=== PATIENT | female | born 1945 | race Caucasian/White ===

== ENCOUNTER → 2017-07-08 14:27 | Outpatient (CLI) | payer MEDICARE, OTHER, SELFPAY ==
[2017-07-08 17:40] LABS: AST(SGOT) 25 U/L (15-37); Alanine Aminotransfer ALT/SGPT 28 U/L (13-56); Albumin, Serum 3.6 g/dL (3.2-5.0); Alkaline Phosphatase 89 U/L (45-117); Anion Gap 10 (5-15); BUN 16 mg/dL (7-18); BUN/Creat Ratio 14.2 RATIO (10-20); Calcium,Total 8.9 mg/dL (8.5-10.1); Chloride 106 mmol/L (98-107); Creatinine, Serum 1.13 mg/dL (0.55-1.02); EST Glomerular Filtration Rate 50 mL/min (>60); Est Glom Filt Rate - Afr Amer 61 mL/min (>60); Globulin 3.6 g/dL (2.2-4.2); Glucose 99 mg/dL (74-106); Potassium 5.3 mmol/L (3.5-5.1); Protein, Total 7.2 g/dL (6.4-8.2); Sodium Level 142 mmol/L (136-145); Thyroid Stim Hormone (TSH) 1.38 uIU/mL (0.358-3.74)
[2017-07-08 17:59] LABS: Absolute Lymphocyte Count 1.94 X10^3/ul (0.83-4.51); Absolute Neutrophil Count 6.6 X10^3/uL (2.0-7.7); Basophil# 0.04 X10^3/uL; Basophil% 0.4 % (0-1); Eosinophils% 3.1 % (0-5); Hemoglobin 15.2 g/dl (12.0-15.0); Lymphocyte # 1.94 X10^3/ul (4.0); Lymphocyte % 19.9 % (19-41); Mean Corp Hgb Conc 32.3 g/gl (32-36); Mean Corpuscular Hgb 27.3 pg (27.0-32.0); Mean Corpuscular Volume 84.5 fL (81-99); Mean Platelet Vol. 10.5 fl (6.2-12.0); Monocyte# 0.87 X10^3/uL; Monocyte% 8.9 % (0-10); Neutrophil # 6.61 X10^3/uL (2.7-7.7); Neutrophil % 67.6 % (47-70); Platelet Count 745 K/mm3 (150-450); RBC Distribution Width CV 16.2 % (11.6-14.6); RBC Distribution Width SD 49.6 fl (35.1-43.9); Red Blood Count 5.56 M/mm3 (4.2-5.4); White Blood Count 9.8 K/mm3 (4.4-11.0)
[2017-07-08 18:16] LABS: POSITIVE COUNT NO; POSITIVE DIFFERENTIAL NO; POSITIVE MORPHOLOGY NO
[2017-07-09 10:09] LABS: Vitamin D,25 Hydroxy 28.7 ng/mL (29.95-100.01)
== END ==
PROVIDERS: Family Provider Family Medicine Geriatric Medicine; PCP Family Medicine Geriatric Medicine; Visit Provider Family Medicine Geriatric Medicine
DX: E11.9 Type 2 diabetes mellitus without complications (principal); I10 Essential (primary) hypertension; E55.9 Vitamin D deficiency, unspecified
CPT/HCPCS: 36415; 80053; 82306; 84443; 85025

== ENCOUNTER → 2017-07-12 13:50 | Outpatient (CLI) | payer MEDICARE, OTHER, SELFPAY ==
[2017-07-12 16:23] LABS: Anion Gap 9 (5-15); BUN 13 mg/dL (7-18); Calcium,Total 8.7 mg/dL (8.5-10.1); Chloride 105 mmol/L (98-107); Creatinine, Serum 1.18 mg/dL (0.55-1.02); EST Glomerular Filtration Rate 48 mL/min (>60); Est Glom Filt Rate - Afr Amer 58 mL/min (>60); Glucose 122 mg/dL (74-106); Potassium 3.7 mmol/L (3.5-5.1); Sodium Level 140 mmol/L (136-145)
== END ==
PROVIDERS: Family Provider Family Medicine Geriatric Medicine; PCP Family Medicine Geriatric Medicine; Visit Provider Family Medicine Geriatric Medicine
DX: E87.6 Hypokalemia (principal)
CPT/HCPCS: 36415; 80048

== ENCOUNTER → 2018-01-10 13:30 | Outpatient (CLI) | payer MEDICARE, OTHER, SELFPAY ==
[2018-01-10 16:41] LABS: Vitamin D,25 Hydroxy 18.7 ng/mL (29.95-100.01)
[2018-01-10 16:49] LABS: ALB/GLOB Ratio 0.8 RATIO (0.9-2.4); AST(SGOT) 28 U/L (15-37); Alanine Aminotransfer ALT/SGPT 27 U/L (13-56); Albumin, Serum 3.5 g/dL (3.2-5.0); Alkaline Phosphatase 93 U/L (45-117); Anion Gap 12 (5-15); BUN 12 mg/dL (7-18); BUN/Creat Ratio 10.4 RATIO (10-20); Calcium,Total 8.7 mg/dL (8.5-10.1); Chloride 101 mmol/L (98-107); Creatinine, Serum 1.15 mg/dL (0.55-1.02); EST Glomerular Filtration Rate 49 mL/min (>60); Est Glom Filt Rate - Afr Amer 59 mL/min (>60); Globulin 4.5 g/dL (2.2-4.2); Glucose 100 mg/dL (74-106); Potassium 3.5 mmol/L (3.5-5.1); Sodium Level 139 mmol/L (136-145); Thyroid Stim Hormone (TSH) 1.77 uIU/mL (0.358-3.74)
[2018-01-10 17:11] LABS: Absolute Lymphocyte Count 1.87 X10^3/ul (0.83-4.51); Basophil# 0.06 X10^3/uL; Basophil% 0.6 % (0-1); Eosinophil# 0.28 X10^3/uL; Eosinophils% 2.7 % (0-5); Hematocrit 45.7 % (37-47); Hemoglobin 14.7 g/dl (12.0-15.0); Lymphocyte # 1.87 X10^3/ul (4.0); Lymphocyte % 18.3 % (19-41); Mean Corp Hgb Conc 32.2 g/gl (32-36); Mean Corpuscular Volume 83.9 fL (81-99); Mean Platelet Vol. 10.6 fl (6.2-12.0); Monocyte# 1.01 X10^3/uL; Monocyte% 9.9 % (0-10); Neutrophil # 6.99 X10^3/uL (2.7-7.7); Neutrophil % 68.3 % (47-70); Platelet Count 736 K/mm3 (150-450); RBC Distribution Width CV 16.4 % (11.6-14.6); RBC Distribution Width SD 49.8 fl (35.1-43.9); Red Blood Count 5.45 M/mm3 (4.2-5.4); White Blood Count 10.2 K/mm3 (4.4-11.0)
[2018-01-10 18:22] LABS: POSITIVE DIFFERENTIAL NO
[2018-01-10 18:46] LABS: POSITIVE COUNT YES; POSITIVE MORPHOLOGY YES; Smudge Cells 1+
[2018-01-12 15:28] LABS: Pathologist Review Reviewed
== END ==
PROVIDERS: Family Provider Family Medicine Geriatric Medicine; PCP Family Medicine Geriatric Medicine; Visit Provider Family Medicine Geriatric Medicine
DX: E11.9 Type 2 diabetes mellitus without complications (principal); E55.9 Vitamin D deficiency, unspecified
CPT/HCPCS: 36415; 80053; 82306; 84443; 85025

== ENCOUNTER 2018-06-06 17:23 | Emergency (ER) | payer MEDICARE, OTHER, SELFPAY ==
[2018-06-06 17:24] VITALS: BP 235/112; PULSE 77; RESP 18; TEMP 36.9; O2SAT 97; BMI 38.9
--- NOTE | 2018-06-06 17:54 | EKG12_ITS ---
Test Reason : Blood Pressure : / mmHG Vent. Rate : 072 BPM Atrial Rate : 072 BPM P-R Int : 186 ms QRS Dur : 076 ms QT Int : 404 ms P-R-T Axes : 050 053 077 degrees QTc Int : 442 ms Normal sinus rhythm Nonspecific ST and T wave abnormality Abnormal ECG Confirmed by ITZ COON, CITLALLI ([id number]), manuscript editor DEDRICK BORDEN ([id number]) on 06/07/2018 2:25:27 PM Referred By: JOSHUA Confirmed By:CITLALLI MOBLEY MD
[2018-06-06] MEDS: hydrALAZINE 20 MG/ML Vial 5 MG IV ×2 (18:13→20:13)
[2018-06-06] MEDS: 0.9% Normal Saline 1,000 ML 150 ML IV (18:13)
[2018-06-06 18:28] LABS: Absolute Lymphocyte Count 1.54 X10^3/ul (0.83-4.51); Absolute Neutrophil Count 8.4 X10^3/uL (2.0-7.7); Basophil# 0.07 X10^3/uL; Basophil% 0.6 % (0-1); Eosinophil# 0.25 X10^3/uL; Eosinophils% 2.2 % (0-5); Hematocrit 47.1 % (37-47); Hemoglobin 15.2 g/dl (12.0-15.0); Lymphocyte # 1.54 X10^3/ul (4.0); Lymphocyte % 13.7 % (19-41); Mean Corp Hgb Conc 32.3 g/gl (32-36); Mean Corpuscular Hgb 26.7 pg (27.0-32.0); Mean Corpuscular Volume 82.8 fL (81-99); Mean Platelet Vol. 10.5 fl (6.2-12.0); Monocyte# 0.97 X10^3/uL; Monocyte% 8.6 % (0-10); Neutrophil # 8.43 X10^3/uL (2.7-7.7); Neutrophil % 74.7 % (47-70); RBC Distribution Width CV 16.6 % (11.6-14.6); RBC Distribution Width SD 49.9 fl (35.1-43.9); Red Blood Count 5.69 M/mm3 (4.2-5.4); White Blood Count 11.3 K/mm3 (4.4-11.0)
[2018-06-06 18:30] LABS: Differential Indicated SCAN CRITERIA MET; POSITIVE COUNT YES; POSITIVE DIFFERENTIAL NO; POSITIVE MORPHOLOGY NO
[2018-06-06 18:32] LABS: Platelet Count 806 K/mm3 (150-450)
[2018-06-06 18:41] LABS: Anion Gap 6 (5-15); BUN 12 mg/dL (7-18); Calcium,Total 8.9 mg/dL (8.5-10.1); Chloride 107 mmol/L (98-107); EST Glomerular Filtration Rate 58 mL/min (>60); Est Glom Filt Rate - Afr Amer 70 mL/min (>60); Estimated Creatinine Clearance 40.83 ml/min; Glucose 122 mg/dL (74-106); Potassium 3.4 mmol/L (3.5-5.1); Sodium Level 139 mmol/L (136-145)
[2018-06-06 18:46] LABS: Differential Comment SCANNED
[2018-06-06 18:56] LABS: Bacteria 0 SEEN /hpf (None Seen); Mucous, Urine 0 SEEN /hpf (<or=2+); Red Blood Cells-Urine 0 SEEN /hpf (0-5)
[2018-06-06 19:00] LABS: Color, Urine Straw (Yellow); Glucose, Dipstick Normal (Normal); Ketone-Dipstick Negative (Negative); Leukocyte Esterase-Dipstick 25 /ul (Negative); Nitrite-Dipstick Negative (Negative); Occult Blood-Urine Negative /ul (Negative); Protein-Dipstick 30 mg/dl (Negative); Specific Gravity, Urine 1.015 (1.002-1.030); Urine Bilirubin Dipstick Negative (Negative); Urine Clarity Clear (Clear); Urine Urobilinogen Normal (Normal)
[2018-06-06 19:07] LABS: Squamous Epithelial Cells - UA 0-5 SEEN /hpf (5-10)
[2018-06-06 19:08] LABS: White Blood Cells 0-5 SEEN /hpf (0-5)
[2018-06-06 19:09] LABS: Transitional Epithelial - Ur 0-5 SEEN /hpf (0-5)
[2018-06-06 20:09] VITALS: BP 189/95; PULSE 74; RESP 16; O2SAT 97
--- NOTE | 2018-06-06 20:25 | ED.VISSUMM ---
- ER Visit Summary Date of Service: 06/06/18 Chief Complaint: [High blood pressure] History of Present Illness: The patient is a 72 F [presents to the emergency department with elevated blood pressure that was noted as she was seeing the signal system testing maintainer today. Patient was there for an ingrown right toenail. Patient was noted to have a blood pressure of 235/110. Patient was sent to the ER via ambulance. Patient is asymptomatic with this. She denies any chest pain or headache or shortness of breath. Patient states that last time she visited her primary care physician's office last December her blood pressure was in the 130 systolic over 80s diastolic. Patient's not sure if she took her blood pressure medicine this morning. Patient states that before she got started on blood pressure medicine it was not unusual for her systolic to be over 200.] Physical Examination: [HEENT-PERRLA, EOMI. Cranial nerves II through XII grossly intact. TMs clear. Mucous membranes moist. No adenopathy. Cardiovascular-regular rate and rhythm without murmur or ectopy Lungs-clear to auscultation, chest wall stable without crepitus or subcu emphysema Abdomen-normoactive bowel sounds, soft, nontender, no rebound or rigidity, no peritoneal signs. Extremities-intact ?4, normal range of motion, normal pulses, atraumatic] Test Results: [Patient had an EKG that showed a sinus rhythm with a ventricular rate of 72 bpm with no acute ST segment changes noted. CBC with differential showed a white count of 11.3, hemoglobin 15, hematocrit 47, platelets 806. Chemistries unremarkable. Urinalysis unremarkable. Troponin is less than 0.015.] Emergency Department Course and Treatment: [Case was discussed with Dr. Emery and I made them aware of the patient's elevated platelet count which she is had chronically for some time. I felt this would need further investigation. At this point no changes in medications will be made to Dr. Emery will see the patient in the office tomorrow to discuss further treatment and follow-up.] Treatment Plan: [Follow-up with her primary care physician tomorrow] Disposition: [Discharged home in stable condition] Impression: [Hypertension Thrombocytosis Ingrown toenail right foot] This note was generated with [employer]ination software. It may contain incorrect words, spelling, and punctuation that were not noted in review of the chart prior to signing ED Disposition - Plan for ED Patient: Referrals: Dago Emery Chi, MD [Primary Care Provider] -
--- NOTE | 2018-06-06 20:29 | ED.DCSUM_ITS ---
- ER Visit Summary Date of Service: 06/06/18 Chief Complaint: [High blood pressure] History of Present Illness: The patient is a 72 F [presents to the emergency department with elevated blood pressure that was noted as she was seeing the claims director today. Patient was there for an ingrown right toenail. Patient was noted to have a blood pressure of 235/110. Patient was sent to the ER via ambulance. Patient is asymptomatic with this. She denies any chest pain or headache or shortness of breath. Patient states that last time she visited her primary care physician's office last December her blood pressure was in the 130 systolic over 80s diastolic. Patient's not sure if she took her blood pressure medicine this morning. Patient states that before she got started on blood pressure medicine it was not unusual for her systolic to be over 200.] Physical Examination: [HEENT-PERRLA, EOMI. Cranial nerves II through XII grossly intact. TMs clear. Mucous membranes moist. No adenopathy. Cardiovascular-regular rate and rhythm without murmur or ectopy Lungs-clear to auscultation, chest wall stable without crepitus or subcu emphysema Abdomen-normoactive bowel sounds, soft, nontender, no rebound or rigidity, no peritoneal signs. Extremities-intact ?4, normal range of motion, normal pulses, atraumatic] Test Results: [Patient had an EKG that showed a sinus rhythm with a ventricular rate of 72 bpm with no acute ST segment changes noted. CBC with differential showed a white count of 11.3, hemoglobin 15, hematocrit 47, platelets 806. Chemistries unremarkable. Urinalysis unremarkable. Troponin is less than 0.015.] Emergency Department Course and Treatment: [Case was discussed with Dr. Emery and I made them aware of the patient's elevated platelet count which she is had chronically for some time. I felt this would need further investigation. At this point no changes in medications will be made to Dr. Emery will see the patient in the office tomorrow to discuss further treatment and follow-up.] Treatment Plan: [Follow-up with her primary care physician tomorrow] Disposition: [Discharged home in stable condition] Impression: [Hypertension Thrombocytosis Ingrown toenail right foot] This note was generated with [employer] software. It may contain incorrect words, spelling, and punctuation that were not noted in review of the chart prior to signing ED Disposition - Plan for ED Patient: Referrals: Dago Emery Chi, MD [Primary Care Provider] -
--- NOTE | 2018-06-06 20:29 | ED.DEP ---
ED Disposition - Plan for ED Patient: Instructions: ED HTN Established Referrals: Dago Emery Chi, MD [Primary Care Provider] - 1 Day Additional Instructions: you will need to have further evaluation regarding your elevated platelet count.
[2018-06-06 20:54] VITALS: BP 185/85; PULSE 75; RESP 14; O2SAT 98
[2018-06-07 14:11] LABS: Pathologist Review Reviewed
== END 2018-06-06 20:57 | disposition home or self-care (01) ==
LOC: ED 18:32
PROVIDERS: Emergency Provider Emergency Medicine; Family Provider Family Medicine Geriatric Medicine; PCP Family Medicine Geriatric Medicine
DX: I10 Essential (primary) hypertension (principal); L60.0 Ingrowing nail; D47.3 Essential (hemorrhagic) thrombocythemia; E78.00 Pure hypercholesterolemia, unspecified; E03.9 Hypothyroidism, unspecified
CPT/HCPCS: 80048; 81001; 84484; 85025; 93005; 96361; 96374; 96376; 99285; J7030; A4216

== ENCOUNTER → 2018-06-15 13:09 | Outpatient (CLI) | payer MEDICARE, OTHER, SELFPAY ==
[2018-06-06 17:24] VITALS: BMI 38.9
[2018-06-15 13:45] LABS: Erythrocyte Sedimentation Rate 21 mm/hr (0-30)
[2018-06-15 14:02] LABS: CRP < 2.90 mg/L (0.0-3.0)
== END ==
PROVIDERS: Family Provider Family Medicine Geriatric Medicine; PCP Family Medicine Geriatric Medicine; Referring Provider Podiatrist Foot & Ankle Surgery; Visit Provider Podiatrist Foot & Ankle Surgery
DX: L03.031 Cellulitis of right toe (principal)
CPT/HCPCS: 36415; 85652; 86140

== ENCOUNTER → 2018-06-28 14:19 | Outpatient (CLI) | payer MEDICARE, OTHER, SELFPAY ==
[2018-06-27 14:12] VITALS: BMI 36.0
[2018-06-28 16:14] LABS: Absolute Lymphocyte Count 1.59 X10^3/ul (0.83-4.51); Absolute Neutrophil Count 9.3 X10^3/uL (2.0-7.7); Basophil% 0.8 % (0-1); Eosinophils% 1.6 % (0-5); Hematocrit 44.3 % (37-47); Hemoglobin 14.9 g/dl (12.0-15.0); Lymphocyte # 1.59 X10^3/ul (4.0); Lymphocyte % 12.8 % (19-41); Mean Corp Hgb Conc 33.6 g/gl (32-36); Mean Corpuscular Volume 80.4 fL (81-99); Mean Platelet Vol. 10.7 fl (6.2-12.0); Monocyte% 9.7 % (0-10); Neutrophil # 9.25 X10^3/uL (2.7-7.7); Neutrophil % 74.8 % (47-70); RBC Distribution Width CV 17.7 % (11.6-14.6); RBC Distribution Width SD 51.4 fl (35.1-43.9); Red Blood Count 5.51 M/mm3 (4.2-5.4); White Blood Count 12.4 K/mm3 (4.4-11.0)
[2018-06-28 16:28] LABS: Vitamin D,25 Hydroxy 42.6 ng/mL (29.95-100.01)
[2018-06-28 16:36] LABS: Differential Indicated SCAN CRITERIA MET; POSITIVE COUNT YES; POSITIVE DIFFERENTIAL NO; POSITIVE MORPHOLOGY NO
[2018-06-28 16:44] LABS: ALB/GLOB Ratio 0.8 RATIO (0.9-2.4); AST(SGOT) 26 U/L (15-37); Alanine Aminotransfer ALT/SGPT 28 U/L (13-56); Albumin, Serum 3.4 g/dL (3.2-5.0); Alkaline Phosphatase 90 U/L (45-117); Anion Gap 9 (5-15); BUN 17 mg/dL (7-18); Calcium,Total 8.9 mg/dL (8.5-10.1); Chloride 101 mmol/L (98-107); Creatinine, Serum 1.21 mg/dL (0.55-1.02); EST Glomerular Filtration Rate 46 mL/min (>60); Est Glom Filt Rate - Afr Amer 56 mL/min (>60); Globulin 4.1 g/dL (2.2-4.2); Glucose 94 mg/dL (74-106); Potassium 4.1 mmol/L (3.5-5.1); Protein, Total 7.5 g/dL (6.4-8.2); Sodium Level 135 mmol/L (136-145)
[2018-06-28 17:16] LABS: Anisocytosis RARE; Platelet Count 953 K/mm3 (150-450); Platelet Estimate MKD INC (ADEQ); Platelet Morphology LARGE
[2018-06-28 17:17] LABS: Ovalocyte RARE
[2018-06-29 12:16] LABS: Pathologist Review Reviewed
== END ==
PROVIDERS: Family Provider Family Medicine Geriatric Medicine; PCP Family Medicine Geriatric Medicine; Visit Provider Family Medicine Geriatric Medicine
DX: E55.9 Vitamin D deficiency, unspecified (principal); I10 Essential (primary) hypertension
CPT/HCPCS: 36415; 80053; 82306; 84443; 85025

== ENCOUNTER 2018-12-06 08:34 | Day surgery (SDC) | payer MEDICARE, OTHER, SELFPAY ==
[2018-10-27 15:01] VITALS: BMI 35.3
[2018-12-06] VITALS (9 sets, daily range): BP systolic 130–160; BP diastolic 75–106; PULSE 53–74; RESP 16; TEMP 36.1–36.7; O2SAT 95–100; BMI 35.3
--- NOTE | 2018-12-06 | LES_PTH ---
PATIENT: BERNICE JUAN LOC: [facility] [place] U#:[id number] AGE/SX: 73/F ROOM: RE12/06/[address]: Dr. Maxx Guzman MD : [id number] BED: DIS: 12/06/2018 SPEC #: [id number] RECD: 12/06/18 10:20 STATUS: FAITH REFlaquito #: [id number] NANCY: 12/06/18 00:[address]: Maxx Guzman DEPT: SURGICAL PATHOLOGY RECD BY: Irene Kaye ENTERED: 12/06/18 10:36 SP TYPE: Lesion OTHR DR: Dr. Dago Emery MD Tissues: A - Skin of nose, NOS B - Skin of nose, NOS C - Skin of nose, NOS Procedures: Gen Path Consultation (on slides) Frozen Section (charge) Frozen Section Add'l ([facility]) Surgery Specimen Level IV HEADER OPERATION: Excision mass, nasal dorsum x3, frozen section PRE-OP DIAGNOSIS: Basal cell carcinoma nasal mass TISSUE SUBMITTED: A - Bottom of nose lesion left side, stitch calhoun upper margin, B - Mid nose lesion, suture calhoun superior margin, C - Upper nose lesion, suture calhoun superior margin FROZEN SECTION DIAGNOSIS A. Bottom of nose, left side, biopsy: Basal cell carcinoma, excised in the planes of sections examined. : 12/06/18 Case has been reviewed in consultation with Dr. Lindo who concurs with the above diagnosis. IDC:AM B. Mid nose lesion, biopsy: Benign adnexal tumor, excised in planes examined. AM: 12/06/18 Case has been reviewed in consultation with Dr. Jaramillo who concurs with the above diagnosis. IDC:MICKIE C. Upper nose lesion, biopsy: Basal cell carcinoma, completely excised. : 12/06/18 MICROSCOPIC DIAGNOSIS A. Bottom of nose lesion, left side, excisional biopsy: Basal cell carcinoma, completely excised in the planes of sections examined (0.5 cm in greatest dimension). Solar elastosis. B. Mid nose lesion, biopsy: Basal cell carcinoma with infundibulocystic features. See comment. C. Upper nose lesion, biopsy: Basal cell carcinoma, completely excised (0.8 cm in greatest dimension). Solar elastosis. :reinaldo 12/15/18 COMMENT B. The tumor measures 0.5 cm in greatest dimension and is completely excised in the planes of sections examined. This specimen is sent to [facility] and reviewed by Dr. Tatum and above diagnosis is rendered. The complete report is viewable in patient's EMR. Case has been reviewed in consultation with Dr. Lindo who concurs with the above diagnosis. IDC:AM MICROSCOPIC DESCRIPTION Slides are reviewed. GROSS DESCRIPTION A - Received fresh for frozen section diagnosis labeled with the patient's name is a specimen designated bottom of the nose, left side. The specimen consists of a piece of reddy-white skin ellipse measuring 1 x 0.5 x 0.3 cm. The specimen is oriented by a stitch marking upper margin. The specimen is inked as follows: upper margin - black, lower margin - blue. The specimen is bisected and submitted entirely for frozen section diagnosis in one cassette. / :rg 12/06/18 B - Received fresh for frozen section diagnosis labeled with the patient's name is a specimen designated mid nose lesion. The specimen consists of a piece of reddy-white skin ellipse measuring 1.5 x 0.5 x 0.1 cm. The specimen is oriented by a suture marking superior margin. The specimen is inked as follows: superior margin - black, inferior margin - blue. The specimen is serially sectioned and submitted entirely for frozen section diagnosis in one cassette. / SJ:rg 12/06/18 C - Received fresh for frozen section diagnosis labeled with the patient's name is a specimen designated upper nose lesion. The specimen consists of a piece of reddy-white skin ellipse measuring 2.5 x 1.5 x 0.2 cm. The specimen is oriented by a suture marking superior margin. The specimen is inked as follows: superior margin - black, inferior margin - blue. The specimen is serially sectioned and submitted entirely for frozen section diagnosis in two cassettes. Cassette 2 contains the tips. / MICKIE:reinaldo 12/06/18 TC:0 CPT: 69370 x3, 06131 x3, 06868
[2018-12-06] MEDS: Lactated Ringers 1,000 ML 100 ML IV ×2 (09:26→11:30)
[2018-12-06] MEDS: Bacitracin 500 UNITS/GM PACKET (10:25)
--- NOTE | 2018-12-06 11:11 | PCM.OPRPT ---
Report of Operation Date of Procedure: 12/06/18 Pre-Operative Diagnosis: Basal cell carcinoma left dorsum of the nose x2. Hypertrophic keratosis left dorsum of the nose x1 Post-Operative Diagnosis: 1. Large basal cell carcinoma dorsum of the nose. #2 hypertrophic keratosis left side of nose. #3 basal cell carcinoma left ala of the nose Surgery/Procedure Performed:: Procedure excision of lesions dorsum of the nose and left ala of the nose x3 with frozen section diagnosis Description of Surgical Findings:: Procedure the patient was placed supine on the operating room table. She was sedated intra-venously. The face and dorsum of the nose were prepped with Betadine solution and sterile drapes were applied. The left nose was examined and a large raised ulcerated lesion was noted 1 cm inferior to the glabella on the dorsum of the nose. This lesion measured 2 x 1.5 cm in dimension. The second lesion was situated in the midportion of the lateral side of the nose and measured 0.5 x 0.5 cm in dimension. The third lesion measured 1 x 1 cm and was situated on the left ala of the nose. 1% Xylocaine plain mixed with epinephrine was infiltrated around all 3 lesions. After local anesthesia had been obtained the largest lesion was excised by making an elliptical incision on the dorsum of the nose inferior to the glabella. The lesion was completely excised and frozen section diagnosis was a basal cell carcinoma completely excised. Superior and inferior margins were undermined. An inferior flap was elevated and the flap was rotated into the wound and the wound was closed with interrupted sutures of 4-0 Vicryl and the skin edges approximated with 5-0 nylon. The second lesion was then excised in a horizontal direction and the skin edges were undermined. The lesion appeared to be a hyper trophic keratosis. The skin edges were approximated with interrupted sutures of 6-0 nylon. The lesion on the left ala was then excised and the skin edges undermined. The lesion was a basal cell carcinoma completely excised. The subcutaneous tissues were approximated with 4 Vicryl and the skin edges approximated with 6-0 nylon. The dimensions of the largest lesion were 2 x 1.5 cm the dimension of the lesion in the mid nose was approximately 0.5 x 0.5 cm and the dimension of the excised specimen of the ala of the nose was 1 x 1 cm. Antibiotic ointment was applied to the incision site and op site was applied. The procedure was considered terminated and the patient returned to the recovery room in satisfactory condition. Type of Anesthesia:: MAC/Supplemental
== END 2018-12-06 12:56 | disposition home or self-care (01) ==
LOC: SDC 08:35 → AC 08:36
PROVIDERS: Family Provider Family Medicine Geriatric Medicine; PCP Family Medicine Geriatric Medicine; Referring Provider Otolaryngology Otolaryngology/Facial Plastic Surgery; Visit Provider Otolaryngology Otolaryngology/Facial Plastic Surgery
PROC: (CPT 11643; principal; 2018-12-06 09:45)
DX: C44.311 Basal cell carcinoma of skin of nose (principal); L57.8 Other skin changes due to chronic exposure to nonionizing radiation; W89.9XXA Exposure to unspecified man-made visible and ultraviolet light, initial encounter; Y92.9 Unspecified place or not applicable; Y99.9 Unspecified external cause status; D69.6 Thrombocytopenia, unspecified; I10 Essential (primary) hypertension
CPT/HCPCS: 11643; 88305; 88325; 88331; 88332; J7120; J2405

== ENCOUNTER → 2019-01-12 15:12 | Outpatient (CLI) | payer MEDICARE, OTHER, SELFPAY ==
[2018-12-06 09:03] VITALS: BMI 35.3
[2019-01-12 17:24] LABS: Absolute Lymphocyte Count 1.84 X10^3/uL (0.83-4.51); Absolute Neutrophil Count 3.2 X10^3/uL (2.0-7.7); Basophil# 0.03 X10^3/uL; Basophil% 0.5 % (0-1); Eosinophil# 0.09 X10^3/uL; Eosinophils% 1.6 % (0-5); Lymphocyte # 1.84 X10^3/ul (4.0); Lymphocyte % 32.6 % (19-41); Mean Corp Hgb Conc 32.5 g/dL (32-36); Mean Corpuscular Hgb 34.9 pg (27.0-32.0); Mean Corpuscular Volume 107.5 fL (81-99); Mean Platelet Vol. 10.3 fl (6.2-12.0); Monocyte% 8.8 % (0-10); NRBC Flagged by Analyzer 0 % (0-5); Neutrophil # 3.18 X10^3/uL (2.7-7.7); Neutrophil % 56.3 % (47-70); Platelet Count 280 K/mm3 (150-450); RBC Distribution Width SD 57.8 fl (35.1-43.9); Red Blood Count 3.72 M/mm3 (4.2-5.4); White Blood Count 5.7 K/mm3 (4.4-11.0)
[2019-01-12 17:42] LABS: Vitamin D,25 Hydroxy 35.3 ng/mL (29.95-100.01)
[2019-01-12 17:46] LABS: ALB/GLOB Ratio 0.8 RATIO (0.9-2.4); AST(SGOT) 25 U/L (15-37); Alanine Aminotransfer ALT/SGPT 24 U/L (13-56); Albumin, Serum 3.4 g/dL (3.2-5.0); Alkaline Phosphatase 91 U/L (45-117); Anion Gap 7 (5-15); BUN 14 mg/dL (7-18); BUN/Creat Ratio 13.9 RATIO (10-20); Calcium,Total 8.7 mg/dL (8.5-10.1); Chloride 104 mmol/L (98-107); Creatinine, Serum 1.01 mg/dL (0.55-1.02); EST Glomerular Filtration Rate 57 mL/min (>60); Est Glom Filt Rate - Afr Amer 69 mL/min (>60); Globulin 4.2 g/dL (2.2-4.2); Glucose 98 mg/dL (74-106); Potassium 3.9 mmol/L (3.5-5.1); Protein, Total 7.6 g/dL (6.4-8.2); Sodium Level 138 mmol/L (136-145); Thyroid Stim Hormone (TSH) 1.52 uIU/mL (0.358-3.74)
== END ==
PROVIDERS: Family Provider Family Medicine Geriatric Medicine; PCP Family Medicine Geriatric Medicine; Visit Provider Family Medicine Geriatric Medicine
DX: E11.9 Type 2 diabetes mellitus without complications (principal); E55.9 Vitamin D deficiency, unspecified; I10 Essential (primary) hypertension
CPT/HCPCS: 36415; 80053; 82306; 84443; 85025

== ENCOUNTER → 2019-09-06 13:06 | Outpatient (CLI) | payer MEDICARE, OTHER, SELFPAY ==
[2019-07-27 14:26] VITALS: BMI 36.8
[2019-09-06 16:48] LABS: Absolute Lymphocyte Count 1.44 X10^3/uL (0.83-4.51); Absolute Neutrophil Count 3.5 X10^3/uL (2.0-7.7); Basophil# 0.03 X10^3/uL; Basophil% 0.5 % (0-1); Eosinophil# 0.08 X10^3/uL; Eosinophils% 1.4 % (0-5); Hematocrit 40.4 % (37-47); Hemoglobin 13.3 g/dL (12.0-15.0); Lymphocyte # 1.44 X10^3/ul (4.0); Lymphocyte % 25.8 % (19-41); Mean Corp Hgb Conc 32.9 g/dL (32-36); Mean Corpuscular Hgb 35.3 pg (27.0-32.0); Mean Corpuscular Volume 107.2 fL (81-99); Mean Platelet Vol. 10.6 fl (6.2-12.0); Monocyte# 0.49 X10^3/uL; Monocyte% 8.8 % (0-10); NRBC Flagged by Analyzer 0 % (0-5); Neutrophil # 3.53 X10^3/uL (2.7-7.7); Neutrophil % 63.1 % (47-70); Platelet Count 331 K/mm3 (150-450); RBC Distribution Width CV 14.1 % (11.6-14.6); RBC Distribution Width SD 54.4 fl (35.1-43.9); Red Blood Count 3.77 M/mm3 (4.2-5.4); White Blood Count 5.6 K/mm3 (4.4-11.0)
[2019-09-06 17:00] LABS: Vitamin D,25 Hydroxy 52.6 ng/mL
[2019-09-06 17:13] LABS: ALB/GLOB Ratio 0.8 RATIO (0.9-2.4); AST(SGOT) 26 U/L (15-37); Alanine Aminotransfer ALT/SGPT 28 U/L (13-56); Albumin, Serum 3.4 g/dL (3.2-5.0); Alkaline Phosphatase 96 U/L (45-117); Anion Gap 6 (5-15); BUN 15 mg/dL (7-18); BUN/Creat Ratio 15.4 RATIO (10-20); Chloride 108 mmol/L (98-107); Creatinine, Serum 0.97 mg/dL (0.55-1.02); EST Glomerular Filtration Rate 59 mL/min (>60); Est Glom Filt Rate - Afr Amer 72 mL/min (>60); Globulin 4.2 g/dL (2.2-4.2); Glucose 125 mg/dL (74-106); Potassium 4.1 mmol/L (3.5-5.1); Protein, Total 7.6 g/dL (6.4-8.2); Sodium Level 141 mmol/L (136-145); Thyroid Stim Hormone (TSH) 1.76 uIU/mL (0.358-3.74)
== END ==
PROVIDERS: PCP Family Medicine Geriatric Medicine; Visit Provider Family Medicine Geriatric Medicine
DX: I10 Essential (primary) hypertension (principal); E55.9 Vitamin D deficiency, unspecified
CPT/HCPCS: 36415; 80053; 82306; 84443; 85025

== ENCOUNTER → 2020-01-16 13:15 | Outpatient (CLI) | payer MEDICARE, OTHER, SELFPAY ==
[2019-10-26 14:27] VITALS: BMI 34.7
[2020-01-16 16:23] LABS: Absolute Lymphocyte Count 1.49 X10^3/uL (0.83-4.51); Absolute Neutrophil Count 3.4 X10^3/uL (2.0-7.7); Basophil# 0.01 X10^3/uL; Basophil% 0.2 % (0-1); Eosinophil# 0.05 X10^3/uL; Eosinophils% 0.9 % (0-5); Hematocrit 39.9 % (37-47); Hemoglobin 13.1 g/dL (12.0-15.0); Lymphocyte # 1.49 X10^3/ul (4.0); Lymphocyte % 27.6 % (19-41); Mean Corp Hgb Conc 32.8 g/dL (32-36); Mean Corpuscular Hgb 35.3 pg (27.0-32.0); Mean Corpuscular Volume 107.5 fL (81-99); Mean Platelet Vol. 10.7 fl (6.2-12.0); Monocyte# 0.44 X10^3/uL; Monocyte% 8.1 % (0-10); NRBC Flagged by Analyzer 0 % (0-5); Platelet Count 331 K/mm3 (150-450); RBC Distribution Width CV 15.4 % (11.6-14.6); RBC Distribution Width SD 60.6 fl (35.1-43.9); Red Blood Count 3.71 M/mm3 (4.2-5.4); White Blood Count 5.4 K/mm3 (4.4-11.0)
[2020-01-16 16:39] LABS: Vitamin D,25 Hydroxy 27.2 ng/mL
[2020-01-16 16:42] LABS: ALB/GLOB Ratio 0.8 RATIO (0.9-2.4); AST(SGOT) 26 U/L (15-37); Alanine Aminotransfer ALT/SGPT 25 U/L (13-56); Albumin, Serum 3.3 g/dL (3.2-5.0); Alkaline Phosphatase 94 U/L (45-117); Anion Gap 7 (5-15); BUN 15 mg/dL (7-18); BUN/Creat Ratio 13.3 RATIO (10-20); Calcium,Total 8.6 mg/dL (8.5-10.1); Chloride 105 mmol/L (98-107); Creatinine, Serum 1.13 mg/dL (0.55-1.02); EST Glomerular Filtration Rate 50 mL/min (>60); Est Glom Filt Rate - Afr Amer 60 mL/min (>60); Globulin 4.3 g/dL (2.2-4.2); Glucose 121 mg/dL (74-106); Protein, Total 7.6 g/dL (6.4-8.2); Sodium Level 139 mmol/L (136-145); Thyroid Stim Hormone (TSH) 1.66 uIU/mL (0.358-3.74)
== END ==
PROVIDERS: PCP Family Medicine Geriatric Medicine; Visit Provider Family Medicine Geriatric Medicine
DX: E55.9 Vitamin D deficiency, unspecified (principal); I10 Essential (primary) hypertension
CPT/HCPCS: 36415; 80053; 82306; 84443; 85025

== ENCOUNTER → 2020-07-16 13:13 | Outpatient (CLI) | payer MEDICARE, OTHER, SELFPAY ==
[2020-04-25 14:46] VITALS: BMI 37.8
[2020-07-16 15:23] LABS: Absolute Lymphocyte Count 1.27 X10^3/uL (0.83-4.51); Absolute Neutrophil Count 3.9 X10^3/uL (2.0-7.7); Basophil# 0.02 X10^3/uL; Basophil% 0.4 % (0-1); Eosinophils% 1.8 % (0-5); Hematocrit 40.7 % (37-47); Hemoglobin 13.1 g/dL (12.0-15.0); Lymphocyte # 1.27 X10^3/ul (0.83-4.51); Lymphocyte % 22.5 % (19-41); Mean Corp Hgb Conc 32.2 g/dL (32-36); Mean Corpuscular Hgb 34.8 pg (27.0-32.0); Mean Corpuscular Volume 108.2 fL (81-99); Mean Platelet Vol. 10.7 fl (6.2-12.0); Monocyte# 0.39 X10^3/uL; Monocyte% 6.9 % (0-10); NRBC Flagged by Analyzer 0 % (0-5); Neutrophil # 3.85 X10^3/uL (2.7-7.7); Platelet Count 311 K/mm3 (150-450); RBC Distribution Width CV 14.6 % (11.6-14.6); RBC Distribution Width SD 58.1 fl (35.1-43.9); Red Blood Count 3.76 M/mm3 (4.2-5.4); White Blood Count 5.7 K/mm3 (4.4-11.0)
[2020-07-16 15:33] LABS: Vitamin D,25 Hydroxy 24.1 ng/mL
[2020-07-16 15:42] LABS: ALB/GLOB Ratio 0.8 RATIO (0.9-2.4); AST(SGOT) 20 U/L (15-37); Alanine Aminotransfer ALT/SGPT 28 U/L (13-56); Albumin, Serum 3.3 g/dL (3.2-5.0); Alkaline Phosphatase 95 U/L (45-117); Anion Gap 6 (5-15); BUN 16 mg/dL (7-18); BUN/Creat Ratio 15.4 RATIO (10-20); Calcium,Total 9.2 mg/dL (8.5-10.1); Chloride 105 mmol/L (98-107); Creatinine, Serum 1.04 mg/dL (0.55-1.02); EST Glomerular Filtration Rate 55 mL/min (>60); Est Glom Filt Rate - Afr Amer 66 mL/min (>60); Globulin 4.4 g/dL (2.2-4.2); Glucose 127 mg/dL (74-106); Potassium 3.9 mmol/L (3.5-5.1); Protein, Total 7.7 g/dL (6.4-8.2); Sodium Level 137 mmol/L (136-145); Thyroid Stim Hormone (TSH) 1.93 uIU/mL (0.358-3.74)
== END ==
PROVIDERS: PCP Family Medicine Geriatric Medicine; Visit Provider Family Medicine Geriatric Medicine
DX: E55.9 Vitamin D deficiency, unspecified (principal); I10 Essential (primary) hypertension
CPT/HCPCS: 36415; 80053; 82306; 84443; 85025

== ENCOUNTER → 2021-01-16 13:08 | Outpatient (CLI) | payer MEDICARE, OTHER, SELFPAY ==
[2021-01-16 16:43] LABS: Absolute Lymphocyte Count 1.57 X10^3/uL (0.83-4.51); Absolute Neutrophil Count 3.4 X10^3/uL (2.0-7.7); Basophil# 0.03 X10^3/uL; Basophil% 0.5 % (0-1); Eosinophil# 0.05 X10^3/uL; Eosinophils% 0.9 % (0-5); Hemoglobin 13.3 g/dL (12.0-15.0); Lymphocyte # 1.57 X10^3/ul (0.83-4.51); Lymphocyte % 28.7 % (19-41); Mean Corp Hgb Conc 33.3 g/dL (32-36); Mean Corpuscular Hgb 36.1 pg (27.0-32.0); Mean Corpuscular Volume 108.7 fL (81-99); Mean Platelet Vol. 11.1 fl (6.2-12.0); Monocyte# 0.45 X10^3/uL; Monocyte% 8.2 % (0-10); NRBC Flagged by Analyzer 0 % (0-5); Neutrophil # 3.36 X10^3/uL (2.7-7.7); Neutrophil % 61.5 % (47-70); Platelet Count 271 K/mm3 (150-450); RBC Distribution Width CV 14.8 % (11.6-14.6); RBC Distribution Width SD 59.5 fl (35.1-43.9); Red Blood Count 3.68 M/mm3 (4.2-5.4); White Blood Count 5.5 K/mm3 (4.4-11.0)
[2021-01-16 17:00] LABS: Vitamin D,25 Hydroxy 28.8 ng/mL
[2021-01-16 17:08] LABS: ALB/GLOB Ratio 0.7 RATIO (0.9-2.4); AST(SGOT) 26 U/L (15-37); Alanine Aminotransfer ALT/SGPT 27 U/L (13-56); Albumin, Serum 3.3 g/dL (3.2-5.0); Alkaline Phosphatase 90 U/L (45-117); Anion Gap 9 (5-15); BUN 18 mg/dL (7-18); BUN/Creat Ratio 15.7 RATIO (10-20); Chloride 104 mmol/L (98-107); Creatinine, Serum 1.15 mg/dL (0.55-1.02); EST Glomerular Filtration Rate 49 mL/min (>60); Est Glom Filt Rate - Afr Amer 59 mL/min (>60); Globulin 4.5 g/dL (2.2-4.2); Glucose 115 mg/dL (74-106); Potassium 4.2 mmol/L (3.5-5.1); Protein, Total 7.8 g/dL (6.4-8.2); Sodium Level 137 mmol/L (136-145); Thyroid Stim Hormone (TSH) 1.48 uIU/mL (0.358-3.74)
== END ==
PROVIDERS: PCP Family Medicine Geriatric Medicine; Visit Provider Family Medicine Geriatric Medicine
DX: E11.9 Type 2 diabetes mellitus without complications (principal); F52.8 Other sexual dysfunction not due to a substance or known physiological condition; I10 Essential (primary) hypertension; E55.9 Vitamin D deficiency, unspecified
CPT/HCPCS: 36415; 80053; 82306; 84443; 85025

== ENCOUNTER → 2021-07-22 | Outpatient (CLI) | payer MEDICARE, OTHER, SELFPAY ==
[2021-07-22 17:17] LABS: Basophil# 0.02 X10^3/uL; Basophil% 0.4 % (0-1); Eosinophil# 0.03 X10^3/uL; Eosinophils% 0.7 % (0-5); Hematocrit 38.6 % (37-47); Hemoglobin 13.1 g/dL (12.0-15.0); Lymphocyte % 22.5 % (19-41); Mean Corp Hgb Conc 33.9 g/dL (32-36); Mean Corpuscular Hgb 37.8 pg (27.0-32.0); Mean Corpuscular Volume 111.2 fL (81-99); Mean Platelet Vol. 10.8 fl (6.2-12.0); Monocyte# 0.35 X10^3/uL; Monocyte% 7.9 % (0-10); NRBC Flagged by Analyzer 0 % (0-5); Neutrophil # 3.03 X10^3/uL (2.7-7.7); Neutrophil % 68.1 % (47-70); Platelet Count 254 K/mm3 (150-450); RBC Distribution Width CV 14.8 % (11.6-14.6); RBC Distribution Width SD 60.8 fl (35.1-43.9); Red Blood Count 3.47 M/mm3 (4.2-5.4); White Blood Count 4.5 K/mm3 (4.4-11.0)
[2021-07-22 17:20] LABS: ALB/GLOB Ratio 0.8 RATIO (0.9-2.4); AST(SGOT) 29 U/L (15-37); Alanine Aminotransfer ALT/SGPT 23 U/L (13-56); Albumin, Serum 3.4 g/dL (3.2-5.0); Alkaline Phosphatase 83 U/L (45-117); Anion Gap 8 (5-15); BUN 17 mg/dL (7-18); BUN/Creat Ratio 16.8 RATIO (10-20); Calcium,Total 9.1 mg/dL (8.5-10.1); Chloride 105 mmol/L (98-107); Creatinine, Serum 1.01 mg/dL (0.55-1.02); EST Glomerular Filtration Rate 56 mL/min (>60); Est Glom Filt Rate - Afr Amer 68 mL/min (>60); Globulin 4.2 g/dL (2.2-4.2); Glucose 99 mg/dL (74-106); Potassium 3.7 mmol/L (3.5-5.1); Protein, Total 7.6 g/dL (6.4-8.2); Sodium Level 138 mmol/L (136-145); Thyroid Stim Hormone (TSH) 1.19 uIU/mL (0.358-3.74)
[2021-07-22 17:23] LABS: Vitamin D,25 Hydroxy 27.2 ng/mL
== END | disposition home or self-care (01) ==
LOC: POLAB3 12:50
PROVIDERS: PCP Family Medicine Geriatric Medicine; Visit Provider Family Medicine Geriatric Medicine
DX: I10 Essential (primary) hypertension (principal); E55.9 Vitamin D deficiency, unspecified
CPT/HCPCS: 36415; 80053; 82306; 84443; 85025

== ENCOUNTER → 2022-01-19 | Outpatient (CLI) | payer MEDICARE, OTHER, SELFPAY ==
[2022-01-19 13:58] LABS: Absolute Lymphocyte Count 1.06 X10^3/uL (0.83-4.51); Basophil# 0.02 X10^3/uL; Basophil% 0.4 % (0-1); Eosinophil# 0.06 X10^3/uL; Eosinophils% 1.1 % (0-5); Hematocrit 39.4 % (37-47); Hemoglobin 13.5 g/dL (12.0-15.0); Lymphocyte # 1.06 X10^3/ul (0.83-4.51); Lymphocyte % 18.9 % (19-41); Mean Corp Hgb Conc 34.3 g/dL (32-36); Mean Corpuscular Hgb 37.7 pg (27.0-32.0); Mean Corpuscular Volume 110.1 fL (81-99); Mean Platelet Vol. 10.4 fl (6.2-12.0); Monocyte% 8.9 % (0-10); NRBC Flagged by Analyzer 0 % (0-5); Neutrophil # 3.95 X10^3/uL (2.7-7.7); Neutrophil % 70.3 % (47-70); Platelet Count 258 K/mm3 (150-450); RBC Distribution Width CV 15.3 % (11.6-14.6); Red Blood Count 3.58 M/mm3 (4.2-5.4); White Blood Count 5.6 K/mm3 (4.4-11.0)
[2022-01-19 14:46] LABS: Vitamin D,25 Hydroxy 28.7 ng/mL
[2022-01-19 14:53] LABS: ALB/GLOB Ratio 0.8 RATIO (0.9-2.4); AST(SGOT) 24 U/L (15-37); Alanine Aminotransfer ALT/SGPT 21 U/L (13-56); Albumin, Serum 3.3 g/dL (3.2-5.0); Alkaline Phosphatase 87 U/L (45-117); Anion Gap 7 (5-15); BUN 17 mg/dL (7-18); Calcium,Total 9.2 mg/dL (8.5-10.1); Chloride 106 mmol/L (98-107); Creatinine, Serum 1.06 mg/dL (0.55-1.02); EST Glomerular Filtration Rate 53 mL/min (>60); Est Glom Filt Rate - Afr Amer 64 mL/min (>60); Glucose 122 mg/dL (74-106); Potassium 3.8 mmol/L (3.5-5.1); Protein, Total 7.3 g/dL (6.4-8.2); Sodium Level 140 mmol/L (136-145); Thyroid Stim Hormone (TSH) 1.77 uIU/mL (0.358-3.74)
== END | disposition home or self-care (01) ==
LOC: POLAB3 13:22
PROVIDERS: PCP Family Medicine Geriatric Medicine; Visit Provider Family Medicine Geriatric Medicine
DX: E11.9 Type 2 diabetes mellitus without complications (principal); E55.9 Vitamin D deficiency, unspecified; I10 Essential (primary) hypertension
CPT/HCPCS: 36415; 80053; 82306; 84443; 85025

== ENCOUNTER 2022-04-12 08:32 | Emergency (ER) | payer MEDICARE, OTHER, SELFPAY ==
[2022-04-12 08:33] VITALS: PULSE 63; RESP 18; TEMP 36.9; O2SAT 97; BMI 36.3
[2022-04-12 08:38] VITALS: BP 178/94; PULSE 60; RESP 16; O2SAT 96
--- NOTE | 2022-04-12 08:44 | EDS_ITS ---
HPI History of Present Illness Chief Complaint: Lower Extremity Injury Narrative Narrative: 76-year-old female with right knee pain. She states been hurting her for about 4 days. She states on the medial aspect of the right knee. Patient denies any trauma. She has a history of left knee problems and has been seen by orthopedics. Apparently they cannot do a knee replacement because she has a titanium abiola in the left leg. She went to physical therapy for this and finished in January. She states that her right knee started hurting about 4 days ago. She is able to ambulate with her walker and states when she uses her walker and actually improves the pain. The pain is worse when she lies on either side in bed. She states he has a history of osteoarthritis. [facility] Medical History Anxiety Fracture of left hip requiring operative repair Hyperlipidemia Hypertension Hypothyroidism Kidney stones Melanoma in situ Osteopenia Vitamin D deficiency Home Medications levothyroxine 50 mcg tablet (Levoxyl) 50 mcg PO DAILY 08/04/13 [History Last Taken 04/19/14 05:30] Atenolol 100 mg PO DAILY 04/17/14 [History Last Taken 12/06/18 07:00 100 MG] losartan 100 mg tablet 100 mg PO DAILY 06/06/18 [History Last Taken 12/06/18 07:00 100 MG] amlodipine 5 mg tablet 5 mg PO DAILY 07/21/18 [History Last Taken 12/06/18 07:00 5 MG] cholecalciferol (vitamin D3) 25 mcg (1,000 unit) tablet 1,000 unit PO DAILY 10/26/19 [History Last Taken Unknown] aspirin 81 mg tablet,delayed release 81 mg PO .QOD 11/04/21 [History Last Taken Unknown] hydroxyurea 500 mg capsule 1,000 mg PO DAILY #120 caps 02/04/22 [Rx Last Taken Unknown] Allergy/AdvReac Type Severity Reaction Status Date / Time promethazine HCl Allergy Severe Other Verified 04/12/22 08:37 [From Phenergan] Penicillins AdvReac Severe Swelling Verified 04/12/22 08:37 red dye AdvReac Severe Unknown Verified 04/12/22 08:37 Tetanus Vaccines and Toxoid AdvReac Intermediate NEEDS Verified 04/12/22 08:37 FOLLOW-UP Family History Father Rheumatoid arthritis Surgical History History of breast lump removal History of hip surgery Social 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 seatbelt use: always do you feel safe at home: Yes ROS ROS ED Constitutional Constitutional ED: Denies chills, fever(s) or sweats Eyes Eyes: Denies blurry vision or change in vision ENT ENT ED: Denies ear pain or sore throat Cardiovascular Cardiovascular: Denies chest pain, palpitations or racing heartbeat Respiratory/Chest Respiratory/Chest: Denies cough, dyspnea or sputum Gastrointestinal Gastrointestinal: Denies abdominal pain, constipation, diarrhea, nausea or vomiting Genitourinary Genitourinary ED: Denies dysuria, hematuria or urinary frequency Musculoskeletal Musculoskeletal: Reports other Details: Right knee pain ; Denies myalgias or neck pain Integumentary Denies abscess, Abrasions or rash Neurologic Neurologic: Denies headache(s), paresthesias or weakness Psychiatric Psychiatric: Denies anxiety, depression, suicidal ideation or suicidal thoughts Endocrine Endocrinology: Denies polydipsia or polyuria EXAM Physical Exam Const Vital Signs: 04/12/22 08:33 04/12/22 08:38 Temperature 98.5 F Temperature Source Oral Pulse Rate 63 60 Respiratory Rate 18 16 Blood Pressure 178/94 H Blood Pressure Mean 122 Pulse Ox 97 96 Oxygen Delivery Method Room Air Room Air Positive well nourished General Appearance ED: NAD HEENT Reports moist mucous membranes normocephalic and atraumatic Chest Wall palpation of chest normal Resp normal respiratory effort and no retractions Cardio regular rate and regular rhythm Extremity Extremity Narrative: Right medial knee. No patellar tenderness. No obvious joint effusion. No erythema or warmth. Right knee extensor mechanism is intact. No ligamentous laxity. Minimal pain with range of motion. MDM MDM MDM Narrative Medical decision making narrative: Patient presenting with right knee pain. This is nontraumatic. Differential currently includes but not limited to osteoarthritis, knee strain, meniscal tear, joint effusion. There is no evidence currently that this is septic knee and the patient is ambulatory on it. She has full range of motion although there is some tenderness. I did obtain an x-ray of the right knee which on my interpretation shows degenerative changes. Radiologist interprets this and agree. No evidence of acute fracture. No significant effusion. Patient will be placed in Scott wrap. Is recommended that she versus ibuprofen at home. She is to follow-up with orthopedic physician. Discharged home in stable condition. Impression: 1. Right knee strain 2. History of osteoarthritis Lab Data Attestation: I reviewed the patient's lab results. Radiography Diagnostic Testing: Clinical Impression(s) from Imaging Studies Knee X-Ray 04/12/22 09:14 IMPRESSION: Degenerative arthrosis. Electronically Signed: Sb Vernon MD at 9:33 EST , Discharge Plan Triage Chief Complaint: Lower Extremity Injury ED Provider: Garret Yanez Dx/Rx/DC Orders Instructions: ED Meniscal Injury Knee Poss Prescriptions: No Action levothyroxine [Levoxyl] 50 MCG tablet 50 mcg PO DAILY Label Comments: THYROID Atenolol 100 MG tablet 100 mg PO DAILY Label Comments: LOWERS BLOOD PRESURE losartan 100 MG tablet 100 mg PO DAILY Label Comments: take 1 tablet by mouth once daily amlodipine 5 MG tablet 5 mg PO DAILY cholecalciferol (vitamin D3) 1,000 UNIT tablet 1,000 unit PO DAILY aspirin 81 mg tablet,delayed release (DR/EC) 81 mg PO .QOD hydroxyurea 500 mg Capsule 1,000 mg PO DAILY Qty: 120 3RF Rx Instructions: Except Sundays and Wednesdays, Adjust as instructed Primary Care Provider: Dago Emery Chi Referrals: Dago Emery Chi, MD [Primary Care Provider] - Disposition Disposition: Home, Self Care
--- NOTE | 2022-04-12 09:14 | RAD_ITS ---
STUDY: X-RAY - RIGHT KNEE REASON FOR EXAM: Female, 76 years old. PAIN TECHNIQUE: 4 view(s) of the knee. COMPARISON: None. FINDINGS: There is demineralization of the visualized distal femur. There is demineralization of the tibia and fibula. Normal proximal tibiofibular articulation. There is no demonstrated fracture. There is mild degenerative arthrosis of the medial femorotibial compartment. There is severe degenerative arthrosis of the lateral femorotibial compartment with severe joint space narrowing. There is mild degenerative arthrosis of the patellofemoral articulation. There is a soft tissue prominence in the suprapatellar region suggesting a small volume joint effusion. The soft tissue structures are unremarkable. RAD/Knee 4 or More Views IMPRESSION: Degenerative arthrosis. Electronically Signed: Sb Vernon MD at 9:33 EST ,
== END 2022-04-12 10:38 | disposition home or self-care (01) ==
PROVIDERS: Emergency Provider Student in an Organized Health Care Education/Training Program; PCP Family Medicine Geriatric Medicine; Visit Provider Student in an Organized Health Care Education/Training Program
DX: S86.911A Strain of unspecified muscle(s) and tendon(s) at lower leg level, right leg, initial encounter (principal); M19.90 Unspecified osteoarthritis, unspecified site; E78.5 Hyperlipidemia, unspecified; I10 Essential (primary) hypertension; M25.561 Pain in right knee; E03.9 Hypothyroidism, unspecified; Z79.899 Other long term (current) drug therapy; Z79.890 Hormone replacement therapy; Z79.82 Long term (current) use of aspirin; X58.XXXA Exposure to other specified factors, initial encounter; Y93.9 Activity, unspecified; Y92.9 Unspecified place or not applicable
CPT/HCPCS: 73564; 99284

== ENCOUNTER → 2022-07-20 | Outpatient (CLI) | payer MEDICARE, OTHER, SELFPAY ==
[2022-07-20 16:52] LABS: Absolute Lymphocyte Count 1.03 X10^3/uL (0.83-4.51); Basophil# 0.02 X10^3/uL; Basophil% 0.3 % (0-1); Eosinophil# 0.14 X10^3/uL; Eosinophils% 2.4 % (0-5); Hematocrit 37.4 % (37-47); Hemoglobin 12.2 g/dL (12.0-15.0); Lymphocyte # 1.03 X10^3/ul (0.83-4.51); Lymphocyte % 17.7 % (19-41); Mean Corp Hgb Conc 32.6 g/dL (32-36); Mean Corpuscular Hgb 37.5 pg (27.0-32.0); Mean Corpuscular Volume 115.1 fL (81-99); Monocyte# 0.59 X10^3/uL; Monocyte% 10.2 % (0-10); NRBC Flagged by Analyzer 0 % (0-5); Neutrophil % 68.9 % (47-70); Platelet Count 262 K/mm3 (150-450); RBC Distribution Width SD 63.6 fl (35.1-43.9); Red Blood Count 3.25 M/mm3 (4.2-5.4); White Blood Count 5.8 K/mm3 (4.4-11.0)
[2022-07-20 17:09] LABS: Vitamin D,25 Hydroxy 32.7 ng/mL
[2022-07-20 17:17] LABS: ALB/GLOB Ratio 0.8 RATIO (0.9-2.4); AST(SGOT) 28 U/L (15-37); Alanine Aminotransfer ALT/SGPT 26 U/L (13-56); Albumin, Serum 3.3 g/dL (3.2-5.0); Alkaline Phosphatase 89 U/L (45-117); Anion Gap 8 (5-15); BUN 21 mg/dL (7-18); BUN/Creat Ratio 18.1 RATIO (10-20); Calcium,Total 8.9 mg/dL (8.5-10.1); Chloride 107 mmol/L (98-107); Creatinine, Serum 1.16 mg/dL (0.55-1.02); EST Glomerular Filtration Rate 48 mL/min (>60); Est Glom Filt Rate - Afr Amer 58 mL/min (>60); Globulin 3.9 g/dL (2.2-4.2); Glucose 109 mg/dL (74-106); Protein, Total 7.2 g/dL (6.4-8.2); Sodium Level 140 mmol/L (136-145); Thyroid Stim Hormone (TSH) 1.57 uIU/mL (0.358-3.74)
== END | disposition home or self-care (01) ==
LOC: POLAB3 13:31
PROVIDERS: Internal Medicine Hematology & Oncology; PCP Family Medicine Geriatric Medicine; Visit Provider Family Medicine Geriatric Medicine
DX: E55.9 Vitamin D deficiency, unspecified (principal); I10 Essential (primary) hypertension
CPT/HCPCS: 36415; 80053; 82306; 84443; 85025

== ENCOUNTER → 2022-09-04 | Outpatient (CLI) | payer MEDICARE, OTHER, SELFPAY ==
--- NOTE | 2022-09-04 13:40 | CT_ITS ---
PROCEDURE: CT RIGHT KNEE WITHOUT CONTRAST REASON FOR EXAM: Female, 77 years old. Preoperative planning for the MakoPlasty Robotic knee surgery. Knee pain. TECHNIQUE: Transaxial CT of the hip, knee and ankle were obtained. Coronal and sagittal reconstruction images of the knee were provided. Individualized dose optimization techniques were used for this CT. COMPARISON: None. FINDINGS: Standard protocol for the preoperative planning for the MakoPlasty robotic knee surgery was performed. Osteopenia with severe arthrosis of the right hip, severe tricompartmental arthrosis of the knee and mild arthrosis of the tibial talar joint. CT/Extremity Lower without Contra IMPRESSION: Preoperative MakoPlasty Robotic knee surgical CT evaluation with findings as described above. Electronically Signed: Rashad Mcdaniel MD at 14:55 EDT ,
== END | disposition home or self-care (01) ==
LOC: CT 13:38
PROVIDERS: PCP Family Medicine Geriatric Medicine; Referring Provider Specialist; Visit Provider Specialist
DX: M21.061 Valgus deformity, not elsewhere classified, right knee (principal)
CPT/HCPCS: 73700

== ENCOUNTER 2022-09-23 07:05 | Observation (INO) | payer MEDICARE, OTHER, SELFPAY ==
--- NOTE | 2022-09-02 13:19 | PCM.HP.BLA ---
History and Physical History and Physical? Patient Name: Diane Hassan : 1945 From:? PETROS POTTS PA-C? DATE OF SURGERY:? 09/23/2022 SCHEDULED PROCEDURE:? Right total knee arthroplasty HISTORY OF PRESENT ILLNESS: Preoperative history and physical exam was performed on August 31, 2022.? This is a 77-year-old female who is been having ongoing pain in the right knee for several years.? Patient states her pain can reach as high as a 10/10 with activities.? Her pain is increased with going up and down stairs, walking, sitting and driving.? She does have start up pain.? Pain is located over the lateral knee.? She has difficulty with bathing and showering as well as shopping secondary to the pain.? Pain does awaken her at nighttime.? Patient has been using [id number]-[id number] ibuprofen for pain control which is helpful.? She has attempted Tylenol.? She uses a walker on a daily basis.? She denies past history of surgery on the right knee.? Patient has medical history pertinent for hypertension, kidney stones as well as thrombocythemia.? We have obtain surgical clearance from the primary care provider Dr. Emery and patient's oncologist/investor relations specialist Dr. Pate.? Patient currently denies any chest pain, shortness of breath, fevers chills or recent infections.? Patient has already had EKG and lab work.? Her lab work with regards to nutritional components were low in which patient attempted protein drinks.? She was able to continue the protein drinks as she did soil her close.? She has been instructed to be seen by a dietitian to help optimize her from a nutritional standpoint.? After failing conservative measures and discussing all treatment options was Dr. Geo Machuca, the patient does wish to proceed with a right total knee arthroplasty.? REVIEW OF SYSTEMS: Review Of Systems: Constitutional: Denies anorexia, anxiety, change in appetite, fever, difficulty sleeping, weight change. Cardiovasular: Denies chest pain, heart murmur, irregular heartbeat and peripheral vascular disease. Respiratory: Denies asthma, cough, pneumonia, sleep apnea, shortness of breath, tuberculosis and wheezing. Gastrointestinal: Denies constipation, diarrhea, heartburn, nausea, rectal itching, bloody stools and vomiting. Genitourinary: Denies incontinence. Musculoskeletal: Denies leg swelling, pain, trouble walking and weakness. Skin: Denies Raynaud's, history of shingles and tattoo. Neurological: Denies ambulatory dysfunction, dizziness, numbness/tingling and tremor. Psychiatric: Denies anxiety, depression, insomnia, mental illness and stress. Hematologic/Lymphatic: Denies anemia, bleeding/bruising tendency and past transfusion. Reviewed, no changes. PAST MEDICAL HISTORY: Advance Care Plan: Other Directive, POA Effective Date: 07/13/2016 Other Directive, LIVING WILL Effective Date: 07/13/2016 Past Medical History: Medical Problems: Arthritis, High Blood Pressure, Kidney Stones Cancer - THROMBOCYTHERMIA Accidents: Fracture - LT TIB LT Hip FX - (04/16/2014) FALL ON ICE Surgical Hx: LT Hip ORIF - (04/17/2014) OPAL @ [facility] LT Leg - (2007) Anesthesia Complications: None Assistive Devices: Glasses, Walker Reviewed and updated. 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 Personal Habits:? Cigarette Use: Never.Smokeless Tobacco: Never Used Smokeless Tobacco.E-Cigarette Use: Never used.Alcohol: Denies use.Drug Use: Denies Use.Enjoy Exercising: Never Exercises. Reviewed, no changes. VITALS: Ht: 63.2 Wt: 209lb Wt k.802 BMI: 36.8 BP: 136/88 Pulse: 60 Resp: 20 T: 97.6 T: 36.4C Pain Level: 1 O2SatR: 98 ALLERGIES: Penicillin Contrast Dye Phenergan? MEDICATIONS: Levothyroxine Sodium 50 mcg 1 by mouth every day, Atenolol 100 mg 1 tab PO daily, Vitamin D-3 1000 Unit 1 cap PO daily, Losartan Potassium 100 mg 1 by mouth every day, Hydroxyurea 500 mg 2po 5 days A week, Aspirin 81 Low Dose 81 mg 1 by mouth every day, Ibuprofen 200 200 mg 4 tablets by mouth 1x/day PRE-OP EXAM:? General appearance:NORMAL? ? ? Other: Eyes: Conjunctivae and lids: NORMAL? Pupils: ERR Ears, Nose, Mouth, and Throat: NORMAL? Other: Inspection of lips, teeth and gums: NORMAL? ?Other: Neck: Examination of neck: no masses noted. Respiratory: Assessment of respiratory effort: NORMAL? ?Other: ?Auscultation of lungs: clear to auscultation no wheezes, rhonchi or rales. Cardiovascular:? Auscultation of heart: regular rate and rhythm, no murmurs, gallops or rubs. PHYSICAL EXAMINATION: Patient does walk with an antalgic gait currently using a walker.? Right knee is without erythema or signs of infection.? Patient range of motion lacks 25 extension to 110 flexion.? Patient has tenderness to palpation along the lateral joint line and medial joint line.? She has fixed valgus alignment. IMAGING STUDIES: Previous x-rays of the right knee reveal joint space narrowing with valgus alignment, subchondral sclerosis, osteophyte formation consistent with severe stage IV bone on bone erosive osteoarthritis IMPRESSION: 1.? 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 Hypertension 3.? History kidney stones 4.? Thrombocythemia PLAN: Dr. Geo Machuca did discuss and review with the patient all treatment options including surgical versus nonsurgical options.? Patient does wish to proceed with the above-stated procedure.? Potential risks, benefits, and complications of the procedure were discussed in detail including but not limited to , infection, nerve and blood vessel damage, persistent pain, numbness, tingling, paresthesias, blood clot, pulmonary embolism, and requirement for possible further surgery.? The patient expressed full understanding and has no further questions for the doctor.? Patient does agree to proceed with the above-stated procedure and has signed the surgery consent form. POST-OP MEDICATION PLAN: Postoperatively patient reports that she will be going to the transitional care unit at [facility]. DVT Prophylaxis: Discussed with Dr. Geo Machuca and at this time we will proceed with aspirin 81 mg twice daily for DVT prophylaxis.? She denies past history of DVT or pulmonary embolism. This dictation was created using voice recognition software. Phonetic and/or grammatical errors may exist. ___? I have re-examined the patient.? There are no clinical changes since date of exam. ___? See progress notes for changes. ___? Dictated on admission Date: ? ? ?Time: Signature:
[2022-09-04 15:37] LABS: Magnesium 2.1 mg/dL (1.6-2.6)
[2022-09-14 14:40] LABS: Absolute Lymphocyte Count 1.15 X10^3/uL (0.83-4.51); Absolute Neutrophil Count 3.3 X10^3/uL (2.0-7.7); Basophil# 0.01 X10^3/uL; Basophil% 0.2 % (0-1); Eosinophil# 0.09 X10^3/uL; Eosinophils% 1.8 % (0-5); Hemoglobin 12.9 g/dL (12.0-15.0); Lymphocyte # 1.15 X10^3/ul (0.83-4.51); Lymphocyte % 22.8 % (19-41); Mean Corp Hgb Conc 33.1 g/dL (32-36); Mean Corpuscular Hgb 36.8 pg (27.0-32.0); Mean Corpuscular Volume 111.1 fL (81-99); Mean Platelet Vol. 10.6 fl (6.2-12.0); Monocyte# 0.51 X10^3/uL; Monocyte% 10.1 % (0-10); NRBC Flagged by Analyzer 0 % (0-5); Neutrophil # 3.27 X10^3/uL (2.7-7.7); Neutrophil % 64.7 % (47-70); Platelet Count 320 K/mm3 (150-450); RBC Distribution Width CV 13.1 % (11.6-14.6); RBC Distribution Width SD 52.7 fl (35.1-43.9); Red Blood Count 3.51 M/mm3 (4.2-5.4); White Blood Count 5.1 K/mm3 (4.4-11.0)
[2022-09-14 14:53] LABS: Albumin, Serum 3.4 g/dL (3.2-5.0); Anion Gap 8 (5-15); BUN 18 mg/dL (7-18); BUN/Creat Ratio 16.5 RATIO (10-20); Calcium,Total 9.1 mg/dL (8.5-10.1); Chloride 108 mmol/L (98-107); Creatinine, Serum 1.09 mg/dL (0.55-1.02); EST Glomerular Filtration Rate 51 mL/min (>60); Est Glom Filt Rate - Afr Amer 62 mL/min (>60); Glucose 131 mg/dL (74-106); Potassium 3.5 mmol/L (3.5-5.1); Sodium Level 140 mmol/L (136-145)
[2022-09-23] VITALS (18 sets, daily range): BP systolic 102–160; BP diastolic 54–96; PULSE 50–62; RESP 16–50; TEMP 36.1–36.7; O2SAT 92–100; BMI 35.9
--- NOTE | 2022-09-23 07:03 | PCM.OPRPT ---
Report of Operation Date of Procedure: 09/23/22 Pre-Operative Diagnosis: Right knee primary osteoarthritis Post-Operative Diagnosis: Right knee primary osteoarthritis Surgery/Procedure Performed:: Right minimally invasive robotic total knee replacement Description of Surgical Findings:: Stable knee with good patella tracking Surgeon: Geo Machuca account supervisor: Landen Hernández Type of Anesthesia: Spinal Anesthesiologist: Jg Pandey Special Medications: 2 g Ancef, 2 g TXA and incision prior to closure lavage, 10 mg Decadron, joint cocktail (5 mg Duramorph, 30 mL of 0.5% Ropivicaine, 1000 units of epinephrine, 30 mg of Toradol) Specimen's removed: Bony cuts Estimated Blood Loss (mL): 50 Fluids Replaced: 700 mL crystalloid Description of Procedure: Implants used: 1. Rosanna size 4 triathlon cruciate retaining distal femoral press-fit component 2. [place]ana size 4 press-fit tritanium tibial baseplate 3. Rosanna X3 9 mm CS polyethylene 4. Rosanna X3 35 mm asymmetric patella Brief history operative indications: 77-year-old female with history of right knee osteoarthritis with radiographic findings with loss of joint space, osteophyte formation and subchondral sclerosis. Failed conservative measures as mentioned in the H&P. Discussion of total knee arthroplasty as well as risk and benefits were discussed the patient including but not limited to blood loss, DVTs, PEs, neurovascular damage, general risk of anesthesia including loss of life, and stiffness or instability were discussed with patient. Patient demonstrated understanding and was able to sign informed consent. Procedure: On the date of procedure patient's right lower extremity was marked in the preoperative area. The patient was then taken back to the operating room where the patient was placed on the table in the supine position. All bony prominences were identified a well-padded. Anesthesia assumed control of the C-spine and airway and remained controlled throughout the remainder of the procedure. A tourniquet was placed on the right upper thigh and the leg was prepped in a sterile fashion. The surgeon then scrubbed at this time .Upon reentering the room right lower extremity was draped in a standard orthopedic fashion. A timeout was then called and everyone agreed upon the side, the site, the procedure to be performed, patient's identity and antibiotics given. Esmarch bandage was used to exsanguinate the extremity and the tourniquet was placed up to 250 mmHg with the knee in flexion. A midline skin incision was made and sharp dissection was taken down through skin subcutaneous tissue and fat. The standard medial parapatellar incision was made and the patella was subluxed laterally. An Appropriate deep MCL release was done and the fat pad was resected. Our attention was then directed to the patella. The patella was everted and a flat resection was made. The knee was then flexed up in 2 femoral pins were placed inside the incision and 2 tibial pins were placed outside the incision in the medial tibia bicortically. Once this was completed the 2 checkpoints in the femur and tibia were placed. Knee was then flexed up and the bony landmarks were registered. Once this was completed knee was taken through range of motion and manually stressed allowing us to a plan for an appropriate tibial cut. The robotic arm was brought into the field sterilely and checkpoint and saw were registered. Based on the patient's deformity the tibial cut was made neutral to the tibial axis. At this time the tensioner was then placed in the joint and ligament tension was checked at 90 degrees and full extension. Based on the patient's ligamentous tension appropriate adjustments were made to the operative plan and ligament releases were done. Once we were happy with our operative plan with balanced flexion and extension gaps our attention was directed to the femur. The robot was brought into the field sterilely and registered. Posterior condylar cuts, anterior chamfer cuts and anterior cuts were appropriately made for a size 4 femur. When these were completed the saws were switched out in the distal femoral and posterior chamfer cuts were made. Protecting the soft tissue throughout this time. A size 4 tibial base plate was selected. the knee was flexed to 90 degrees and the soft tissues and posterior osteophytes were removed from the joint. 40 cc of the periarticular injection was injected into the posterior medial corner of the joint. The appropriate trials were then placed on the femur and tibia. A trial polyethylene was trialed to ensure proper balancing and stability of the knee. The appropriate tibial internal rotation was then marked with a bovie. Our attention was then directed to the patella. The lug holes were drilled and the patella trial was placed. Patellar tracking was checked and deemed appropriate. Once we were happy lug holes were drilled for the femur and trial components were removed. the tibia was subluxed and pinned into place and the keel was punched and drilled appropriately. Final components were verified and opened, and cement was mixed in a vacuum. [employer] Simplex cement was used. The wound was copiously irrigated with normal saline. When the cement was ready the components were impacted into place starting with the tibia, femur and finally cementing the patella. The trial poly component was placed and the knee was placed in full extension. All excess cement was removed in the process. Once the cement had cured the tracking, alignment and balance were verified and a size 9 mm CS polyethylene component was placed. Once the final components were placed a 3-minute dilute Betadine lavage was performed followed by an Irrisept lavage was performed and the wound was copiously irrigated with normal saline solution and the periarticular injection was given. The wound was closed in a layer elizabeth fashion using #1 vicryl interrupted sutures for the arthrotomy, 2-0 interrupted Vicryl suture for the subcuticular layer and leonid for final skin closure. A sterile compressive dressing was then placed. The patient was then awakened from anesthesia, transferred to the [facility] and transferred to the PACU for recovery. Post op plan DVT ppx: ASA 81mg BID, thigh high compression stockings Follow up: in office in 2 weeks for wound check PT: to start POD #0 at hospital, outpatient PT should be arranged. Patient be placed on doxycycline 100 mg p.o. twice daily for 2 weeks postoperatively due to inability to fully correct her malnutrition markers after 3 months of treatment for malnutrition. My physician expanded function dental assistant was a vital part of this case. He was important in appropriate retraction during the case, and protection of soft tissues during bony cuts. His intimate knowledge of the case and my steps aided in safe and expedient completion of the procedure as well as appropriate position of the leg during the case. He was also vital in assisting with closure under my direct supervision. Due to the complexity of this case robotic arm was used to assist in the surgery to improve accuracy and clinical outcomes. Complications No intraoperative complications Admit VTE Documentation VTE Present on Admission: No VTE Mechan Device Prophylaxis: SCD's and Thigh High JUDE Hose VTE Pharm Prophylaxis ordered?: Yes
[2022-09-23] MEDS: Lactated Ringers 1,000 ML 999 ML IV ×2 (07:05→10:40)
[2022-09-23] MEDS: Magnesium 1 GM over 15 mins IV (07:06)
[2022-09-23] MEDS: Celecoxib 200 MG Capsule 400 MG PO (07:06)
[2022-09-23] MEDS: Gabapentin 600 MG Tablet PO (07:07)
[2022-09-23] MEDS: Acetaminophen 500 MG Tablet 1000 MG PO ×2 (07:07→22:13)
[2022-09-23 07:56] LABS: Bedside Glucose 110 mg/dL (74-106)
[2022-09-23] MEDS: Cefazolin 2 GM in 0.9% Normal Saline 100 ML IV (08:29)
--- NOTE | 2022-09-23 08:45 | KNEE_PTH ---
PATIENT: BERNICE JUAN LOC: [id number] U#:[id number] AGE/SX: 77/F ROOM: [facility] RE09/23/[address]: Dr. Geo Machuca MD : 1945 BED: 1 DIS: 09/25/2022 SPEC #: [id number] RECD: 09/23/22 10:38 STATUS: FAITH HAMILTON #: [id number] NANCY: 09/23/22 08:[address]: Geo Machuca DEPT: SURGICAL PATHOLOGY RECD BY: Megan Sanchez ENTERED: 09/23/22 13:04 SP TYPE: TOTAL KNEE OTHR DR: Dr. Dago Emery MD Tissues: Knee, NOS Procedures: Decalcification bone/plaque Surgery Specimen Level IV HEADER OPERATION: Robotic-assisted right total knee arthroplasty, ERAS PRE-OP DIAGNOSIS: Valgus alignment, subchondral sclerosis, osteophyte formation TISSUE SUBMITTED: Right knee bone and tissue MICROSCOPIC DIAGNOSIS Right knee bone and tissue, total knee replacement/resection: Pieces of bone with degenerative osteoarthritic changes. Fibroadipose tissue, fibroconnective tissue and reactive synovial tissue. MICKIE:reinaldo 09/25/2022 MICROSCOPIC DESCRIPTION Slides are reviewed. GROSS DESCRIPTION Received is one container designated bone and tissue right knee. The specimen consists of multiple fragments of reddy-yellow bone measuring in aggregate 10.0 x 10.0 x 4.0 cm. The soft tissue attached to the pieces of bone measures 6.0 x 1.5 x 1.0 cm. A number of bony fragments contain articular surfaces consistent with tibial plateau and femoral condyle and displaying prominent osteophyte formation, eburnation and bone erosion. [employer] sections are submitted in two cassettes as follows: 1 - soft tissue, 2 - bone after decalcification. / MICKIE:reinaldo 09/23/2022 TC:5 CPT: 17962, 54783
[2022-09-23] MEDS: JPS (Morphine 10mg/ml) OPERA.SITE (09:32)
--- NOTE | 2022-09-23 10:20 | RAD_ITS ---
STUDY: X-RAY - RIGHT KNEE REASON FOR EXAM: Female, 77 years old. Post op -- AP and Lateral xray of operative knee in PACU TECHNIQUE: 2 view(s) of the knee. COMPARISON: Comparison is made with prior study dated March. FINDINGS: Normal visualized distal femur. Normal visualized proximal tibia and fibula. Normal proximal tibiofibular articulation. The patient is status post total knee replacement. There is good alignment. Postoperative soft tissue changes. RAD/Knee 1 or 2 Views IMPRESSION: Status post total knee replacement. There is good alignment. Postoperative soft tissue changes. Electronically Signed: Raciel Caballero MD at 15:42 EDT ,
[2022-09-23] MEDS: Lactated Ringers 1,000 ML 125 ML IV (12:26)
[2022-09-23] MEDS: Ondansetron 4 MG/2 ML Vial IV (15:20)
[2022-09-23] MEDS: Cefazolin 1 GM/50 ML BAG IV (17:31)
[2022-09-23] MEDS: oxyCODONE 5 MG Tablet PO (22:13)
[2022-09-23] MEDS: Aspirin 81 MG TAB.CHEW PO (22:13)
[2022-09-24] VITALS (8 sets, daily range): BP systolic 114–160; BP diastolic 56–91; PULSE 51–72; RESP 12–18; TEMP 36.4–37.1; O2SAT 94–96
[2022-09-24] MEDS: Cefazolin 1 GM/50 ML BAG IV (00:41)
[2022-09-24] MEDS: Acetaminophen 500 MG Tablet 1000 MG PO ×3 (05:36→22:43)
[2022-09-24] MEDS: Levothyroxine 50 MCG Tablet PO (05:36)
[2022-09-24] MEDS: Ketorolac 15 MG/ML Vial IV ×2 (05:59→17:16)
[2022-09-24 06:15] LABS: Hematocrit 34.7 % (37-47); Hemoglobin 11.4 g/dL (12.0-15.0); Mean Corp Hgb Conc 32.9 g/dL (32-36); Mean Corpuscular Hgb 35.8 pg (27.0-32.0); Mean Corpuscular Volume 109.1 fL (81-99); Mean Platelet Vol. 10.7 fl (6.2-12.0); Platelet Count 249 K/mm3 (150-450); RBC Distribution Width CV 13.5 % (11.6-14.6); RBC Distribution Width SD 52.9 fl (35.1-43.9); Red Blood Count 3.18 M/mm3 (4.2-5.4)
[2022-09-24 06:40] LABS: Anion Gap 3 (5-15); BUN 17 mg/dL (7-18); BUN/Creat Ratio 15.6 RATIO (10-20); Calcium,Total 8.3 mg/dL (8.5-10.1); Chloride 108 mmol/L (98-107); Creatinine, Serum 1.09 mg/dL (0.55-1.02); EST Glomerular Filtration Rate 51 mL/min (>60); Est Glom Filt Rate - Afr Amer 62 mL/min (>60); Estimated Creatinine Clearance 34.62 ml/min; Glucose 89 mg/dL (74-106); Potassium 3.9 mmol/L (3.5-5.1); Sodium Level 140 mmol/L (136-145)
--- NOTE | 2022-09-24 09:17 | CASEMGMT ---
DOUGLAS ROBISON Assessment: Face to Face with pt for initial transition planning/care coordination assessment. RN ENRIQUETA introduced self and role at [facility], pt voices understanding and consents to assessment. Pt is A/O x4 and answers all questions appropriately at this time. Pt lying in bed in no distress. Care providers, pharmacy, and demographics verified/updated. Admitting Dx: R total knee with tg PCP:Rupert Specialists: Sven, ortho; Herlinda, onc Preferred Pharmacy: [facility] Insurance: [facility], [employer] Sr Supp Prescription Benefit: yes LNOK: Gina De Guzman, friend; Leann Armendariz, friend Living Arrangements: Pt lives alone in a double wide with 3 steps to enter with a rail. Pt reports she was sponge bathing at home and she gets her groceries delivered. Pt states she does not have anyone to assist her at home. Transportation: Pt drives self and denies concerns with transportation. Pt states her friend Leann Armendariz will be her transportation once she returns from her vacation. DME/HHC/SNF: Pt has a comfort height commode, cane, wheeled and standard walker and rollator at home. Pt denies hx of [facility] and has been to [facility] and [facility] in the past. Pt states she would like to go to [facility] and she has spoke with Dr. Emery regarding this. Explained to pt that she is in observation status and [facility] will not pay for this stay. Reviewed other options with pt. Pt states she has called [facility] and she is aware that the cost is approx $600/day. Pt states she knows that she needs to pay up front but does not have her check book with her. She states that she would like to private pay for at minimum 1 wk. Pt aware that this RN ENRIQUETA will notify SW who will be in to discuss this plan with her. Pt states no further concerns/needs. Updated Landen CORNELIUS of plan. CM to follow. Advised pt to ask CM if any further question/concerns/needs arise, voices understanding. Pt Goal: [facility] private pay Plan: [facility] private pay pending acceptance and bed availability
[2022-09-24] MEDS: Aspirin 81 MG TAB.CHEW PO ×2 (09:24→22:44)
[2022-09-24] MEDS: Losartan Potassium 100 MG Tablet PO (09:24)
[2022-09-24] MEDS: Hydroxyurea 500 MG Capsule 1000 MG PO (09:25)
[2022-09-24] MEDS: Doxycycline 100 MG CAPSULE PO ×2 (09:25→22:44)
[2022-09-24] MEDS: amLODIPine 5 MG Tablet PO (09:26)
[2022-09-24] MEDS: Famotidine 20 MG Tablet PO (09:26)
[2022-09-24] MEDS: Senna/Docusate Sodium 1 Tablet 2 TABLET PO (09:26)
[2022-09-24] MEDS: Cholecalciferol (VIT D3) 25 MCG TABLET (1,000 UNITS) PO (09:26)
[2022-09-24] MEDS: Atenolol 100 MG Tablet PO (09:27)
[2022-09-24] MEDS: oxyCODONE 5 MG Tablet PO ×2 (09:30→20:15)
--- NOTE | 2022-09-24 11:16 | CASEMGMT ---
Social Work SW received referral for pt to go to TCU. SW met with pt and introduced self and role of SW. Pt understanding that stay in TCU will not be covered by insurance. Pt is understanding and states she is able to over the cost of the required 21 day payment up front. Referral to [facility] in TCU and they are able to accept pt. ADRYAN Schuster updated and pt will likely be ready for discharge tomorrow. Plan: TCU, when medically ready [facility] De Santiago
--- NOTE | 2022-09-24 11:18 | PN.ORTHO_ITS ---
Subjective Subjective The patient was sitting in bed upon examination. Patient denies any chest pain, shortness of breath, dizziness, lightheadedness, nausea or vomiting, or calf pain. Patient does report pain with the knee but controlled on medications. Patient is only been able to walk approximately 4 feet. She has not worked with physical therapy this morning. Patient states she lives home alone and has no help other than a friend who will be leaving for vacation. She wants to go to the transitional care unit upon discharge. Objective Data Objective Data Vital Signs: Vital Signs Temp Pulse Resp BP Pulse Ox O2 Del Method O2 Flow Rate 98.7 F 60 18 114/56 L 94 Room Air 1 09/24/22 10:00 09/24/22 10:00 09/24/22 10:00 09/24/22 10:00 09/24/22 10:00 09/24/22 10:00 09/23/22 15:45 FiO2 1 09/23/22 19:14 Oxygen Flow Rate (L/min) 1 Oxygen Delivery Method Room Air Weight: 92 kg Body Mass Index (BMI) 35.9 Intake & Output: Intake and Output for Last 24 Hours 09/22/22 09/23/22 09/24/22 23:59 23:59 23:59 Intake Total 3562 / 3562 250 / 250 Output Total 1300 / 1300 225 / 225 Balance 2262 / 2262 25 / 25 Lab / Micro Data 09/24/22 05:40 09/24/22 05:40 Labs: Laboratory Results - last 24 hr 09/24/22 05:40: WBC 7.0, RBC 3.18 L, Hgb 11.4 L, Hct 34.7 L, MCV 109.1 H, MCH 35.8 H, MCHC 32.9, RDW Std Deviation 52.9 H, RDW Coeff of Maury 13.5, Plt Count 249, MPV 10.7, Sodium 140, Potassium 3.9, Chloride 108 H, Carbon Dioxide 29.0, Anion Gap 3 L, BUN 17, Creatinine 1.09 H, Estim Creat Clear Calc 34.62, Est GFR (MDRD) Af Amer 62, Est GFR (MDRD) Non-Af 51 L, BUN/Creatinine Ratio 15.6, Glucose 89, Calcium 8.3 L Micro: Microbiology 09/04/22 14:20 Swab (Method) Nasal Screen MRSA/MSSA - Final Radiography Diagnostic Testing: Radiology Impression Knee X-Ray 09/23/22 10:20 IMPRESSION: Status post total knee replacement. There is good alignment. Postoperative soft tissue changes. Electronically Signed: Raciel Caballero MD at 15:42 EDT , Physical Exam Narrative Vital signs stable and afebrile. SCDs and JUDE hose are in place bilaterally Patient is able to plantarflex and dorsiflex actively. Sensation is intact to light touch to saphenous, sural, superficial and deep peroneal, and tibial distribution. Proximal pin site dressing and main Mepilex dressing is clean dry and intact. Trace drainage over the distal pin site dressing Negative Homans bilaterally, negative signs and symptoms of DVT. Const alert, oriented x3 and no apparent distress Assessment & Plan Assessment/Plan (1) Status post total right knee replacement: PLAN: 1. S/P right total knee arthroplasty POD #1 2. Continue Pain Medications: Tylenol, meloxicam, oxycodone. Do not take any other nonsteroidal anti-inflammatories while using meloxicam/Mobic. 3. DVT Prophylaxis: Take 81 mg aspirin twice daily for 4 weeks postoperatively for DVT prophylaxis. Patient denies past history of DVT or pulmonary embolism 4. PT/OT: Weightbearing as tolerated with walker. Physical therapy did discuss with myself that she was not able to get up and walk due to nausea. She participated in therapy in the bed. 5. H & H: 11.4/34.7, asymptomatic. Postoperative anemia secondary to acute blood loss from surgery without any intra operative complications. 6. Continue postoperative medical management per medicine: Case was discussed with medicine 7. Encouraged Incentive Spirometry 8. Disposition: We had lengthy discussion with the patient with regards to postoperative discharge planning. Case management has been extensively involved. Patient does not qualify for transitional care unit. We discussed possible rehabilitation unit versus home with home health. At this time patient is wanting to proceed with transitional care unit pain [id number]. I do not feel patient is ready to be discharged today as she had difficult time with physical therapy. Plan will be for probable discharge tomorrow. I also had lengthy discussion with the patient once she is at home for assistance. We discussed and recommend that she contact her [employer] to see if there are individuals they are willing to help her with running her to appointments and getting prescriptions if needed. She states her friend is leaving for vacation who normally would help her. She also reports that her family is unable to help her. We will reassess patient tomorrow for appropriate discharge. I have reviewed the [place] Automated Rx Reporting System (OARRS) report for this patient for refill pattern and other prescriber involvement as part of the appropriate surveillance for the provision of acute and chronic controlled medications. The report was requested and reviewed on the date of this entry and was considered in the prescribing process. This dictation was created using voice recognition software. Phonetic and/or grammatical errors may exist.
--- NOTE | 2022-09-24 12:07 | CASEMGMT ---
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 Pt is aware that documents are not on file at [facility] and SW requested they be brought in for scanning into the EMR. ARIE De Santiago
--- NOTE | 2022-09-24 13:15 | NURSING ---
pt c/o nausea with movement- aware-pt refusing to get up in chair w/ staff-encouraged pt to at least dangle
--- NOTE | 2022-09-24 16:39 | CASEMGMT ---
DOUGLAS CM in to discuss YOUSSEF form with patient. RN CM explained YOUSSEF form, patient voiced understanding. Pt signed form and filed in chart. Pt provided with a copy of signed YOUSSEF form. Patient had no further questions or concerns at this time.
[2022-09-24] MEDS: 0.9% Saline Lock 10 ML Syringe IV (17:17)
--- NOTE | 2022-09-24 20:04 | PN.HOSP_ITS ---
Reason for Visit Reason for Visit: Diagnoses Encounter for other preprocedural examination (09/23/22) Presence of right artificial knee joint (09/23/22) Subjective Subjective Patient was seen and examined today, she will need to go to a short-term long-term facility and she has requested placement in TCU. Patient want to pay [id number] because she is in observation patient. Patient complains of feeling lightheaded today but otherwise has no complaints such as fever, chills, cough, or chest discomfort. Objective Data Objective Data Vital Signs: Vital Signs Temp Pulse Resp BP Pulse Ox O2 Del Method O2 Flow Rate 97.9 F 65 18 154/80 H 95 Room Air 1 09/24/22 17:00 09/24/22 17:00 09/24/22 17:00 09/24/22 17:00 09/24/22 17:00 09/24/22 17:00 09/23/22 15:45 FiO2 94 09/24/22 11:23 Oxygen Flow Rate (L/min) 1 Oxygen Delivery Method Room Air Weight: 92 kg Body Mass Index (BMI) 35.9 Intake & Output: Intake and Output for Last 24 Hours 09/22/22 09/23/22 09/24/22 23:59 23:59 23:59 Intake Total 3562 / 3562 750 / 750 Output Total 1300 / 1300 625 / 625 Balance 2262 / 2262 125 / 125 Lab / Micro Data 09/24/22 05:40 09/24/22 05:40 Labs: Laboratory Results - last 24 hr 09/24/22 05:40: WBC 7.0, RBC 3.18 L, Hgb 11.4 L, Hct 34.7 L, MCV 109.1 H, MCH 35.8 H, MCHC 32.9, RDW Std Deviation 52.9 H, RDW Coeff of Maury 13.5, Plt Count 249, MPV 10.7, Sodium 140, Potassium 3.9, Chloride 108 H, Carbon Dioxide 29.0, Anion Gap 3 L, BUN 17, Creatinine 1.09 H, Estim Creat Clear Calc 34.62, Est GFR (MDRD) Af Amer 62, Est GFR (MDRD) Non-Af 51 L, BUN/Creatinine Ratio 15.6, Glucose 89, Calcium 8.3 L Micro: Microbiology 09/04/22 14:20 Swab (Method) Nasal Screen MRSA/MSSA - Final Physical Exam Const alert, oriented x3 and no apparent distress General Appearance: cooperative, well kempt and well developed Orientation / Consciousness: awake, oriented to person, oriented to place and oriented to time HEENT normocephalic, head/scalp atraumatic and moist oral mucous membranes Eyes PERRL, EOMs intact bilaterally and conjunctivae normal Neck supple, no JVD, thyroid normal and no carotid bruits General: trachea midline Resp normal respiratory effort, no retractions, no use of accessory muscles and clear to auscultation bilaterally Auscultation: Negative for rales, rhonchi or wheezes Cardio regular rate, regular rhythm, S1 normal heart sound, S2 normal heart sound, no murmurs, no rub and no gallops GI normal to inspection, nondistended, normoactive bowel sounds, soft to palpation, non-tender and non-distended Extremity no clubbing, cyanosis or edema Skin no rashes or lesions noted General Skin Exam: no breakdown Neuro oriented x3, CN's II-XII intact bilaterally, moves all extremities, no focal motor deficits and no sensory deficits noted Sensorium / Orientation: awake, alert, oriented to person, oriented to place and oriented to time Speech: speech normal Psych affect normal Assessment & Plan Assessment/Plan (1) Status post total right knee replacement: PLAN: Plan 1. Essential hypertension-continue patient's present medications #2 hypothyroidism-patient will remain on Synthroid #3 essential thrombocythemia-patient is on hydroxyurea #4 osteoarthritis-status post ORIF (right minimally invasive robotic total knee replacement) right knee postop day #1-patient continues to see PT and OT, orthopedic surgery is participating in her care #5 mild postop anemia-expected due to right minimally invasive robotic total knee replacement-patient does not require blood transfusion at this time Total clinical time spent by myself addressing patient's medical issues, reviewing all of her data, and collaborating with patient's care team: 35 minutes Charges/Coding Visit Charges Office Visits / Consults: [id number] OV L4 Est
[2022-09-25 02:55] VITALS: BP 121/71; PULSE 62; RESP 16; TEMP 36.6; O2SAT 97
[2022-09-25] MEDS: Acetaminophen 500 MG Tablet 1000 MG PO (05:11)
[2022-09-25] MEDS: Levothyroxine 50 MCG Tablet PO (05:11)
[2022-09-25] MEDS: oxyCODONE 5 MG Tablet PO (05:17)
--- NOTE | 2022-09-25 06:14 | PCM.PN.ORT ---
Subjective Subjective The patient was sitting in bed upon examination. Patient denies any chest pain, shortness of breath, dizziness, lightheadedness, nausea or vomiting, or calf pain. Patient reports that she had a very tough day yesterday with regards to pain and not getting any sleep. She feels better this morning however she has not been up moving. Her pain is primarily when she is up moving. Patient had discussion with case management and she is pain [id number] to go to the transitional care unit. Patient walked 10 feet with physical therapy. We are waiting on lab work. Objective Data Objective Data Vital Signs: Vital Signs Temp Pulse Resp BP Pulse Ox O2 Del Method O2 Flow Rate 98 F 62 16 121/71 H 97 Room Air 1 09/25/22 02:55 09/25/22 02:55 09/25/22 02:55 09/25/22 02:55 09/25/22 02:55 09/25/22 02:55 09/23/22 15:45 FiO2 94 09/24/22 11:23 Oxygen Flow Rate (L/min) 1 Oxygen Delivery Method Room Air Weight: 92 kg Body Mass Index (BMI) 35.9 Intake & Output: Intake and Output for Last 24 Hours 09/23/22 09/24/22 09/25/22 23:59 23:59 23:59 Intake Total 3562 / 3562 750 / 750 Output Total 1300 / 1300 625 / 825 200 / 200 Balance 2262 / 2262 125 / -75 -200 / -200 Lab / Micro Data 09/24/22 05:40 09/24/22 05:40 Labs: Laboratory Results - last 24 hr 09/24/22 05:40: WBC 7.0, RBC 3.18 L, Hgb 11.4 L, Hct 34.7 L, MCV 109.1 H, MCH 35.8 H, MCHC 32.9, RDW Std Deviation 52.9 H, RDW Coeff of Maury 13.5, Plt Count 249, MPV 10.7, Sodium 140, Potassium 3.9, Chloride 108 H, Carbon Dioxide 29.0, Anion Gap 3 L, BUN 17, Creatinine 1.09 H, Estim Creat Clear Calc 34.62, Est GFR (MDRD) Af Amer 62, Est GFR (MDRD) Non-Af 51 L, BUN/Creatinine Ratio 15.6, Glucose 89, Calcium 8.3 L Micro: Microbiology 09/04/22 14:20 Swab (Method) Nasal Screen MRSA/MSSA - Final Physical Exam Narrative Vital signs stable and afebrile. SCDs are in the room but not on. Patient's JUDE hose are still in place. Patient is able to plantarflex and dorsiflex actively. Sensation is intact to light touch to saphenous, sural, superficial and deep peroneal, and tibial distribution. Proximal pin site dressing and main Mepilex dressing dressing is clean dry and intact. Stable trace drainage over the distal pin site Negative Homans bilaterally, negative signs and symptoms of DVT. Const alert, oriented x3 and no apparent distress Assessment & Plan Assessment/Plan (1) Status post total right knee replacement: PLAN: 1. S/P right total knee arthroplasty POD #2 2. Continue Pain Medications: Tylenol, meloxicam, oxycodone. Do not take any other nonsteroidal anti-inflammatories while using meloxicam/Mobic. 3. DVT Prophylaxis: Take 81 mg aspirin twice daily for 4 weeks postoperatively for DVT prophylaxis. Patient denies past history of DVT or pulmonary embolism 4. PT/OT: Weightbearing as tolerated with walker. Physical therapy did discuss with myself that she was not able to get up and walk due to nausea. She participated in therapy in the bed. 5. H & H: Waiting on this morning's lab work. Patient currently asymptomatic. Postoperative anemia secondary to acute blood loss from surgery without any intra operative complications. 6. Continue postoperative medical management per medicine: Case was discussed with medicine 7. Encouraged Incentive Spirometry 8. Currently on doxycycline for 2 weeks postoperatively. Patient currently on doxycycline due to preoperative malnutrition. I discussed with the patient potential side effects of doxycycline including sensitivity to the sunlight and increased risk of skin burn. Recommend patient take appropriate precautions. Also recommend patient to take probiotic while on the antibiotic. Patient voiced understanding agreement. 8. Disposition: Case was discussed in great detail yesterday with case management. Due to observation status with surgical intervention patient does not qualify for the transitional care unit through insurance. Patient has had discussion with case management and plan was to proceed with the transitional care unit and patient would like to pay [id number]. Plan will be for discharge to the transitional care unit today. We discussed postoperative medications in detail. Medications will be placed on chart for narcotic. Once she is discharged from the transitional care unit she should continue with the doxycycline for a total of 2 weeks postoperatively. She will keep her scheduled follow-up visit 2 weeks postoperatively with [facility] [place]. I have reviewed the [place] Automated Rx Reporting System (OARRS) report for this patient for refill pattern and other prescriber involvement as part of the appropriate surveillance for the provision of acute and chronic controlled medications. The report was requested and reviewed on the date of this entry and was considered in the prescribing process. This dictation was created using voice recognition software. Phonetic and/or grammatical errors may exist.
--- NOTE | 2022-09-25 06:19 | PCM.TXEXTCAR ---
Diet Diet Order/Speech Therapy: 09/24/22 11:28 Diet: Regular - General Is pt able to select menu?: Yes Routine Orders/Code Status Code Status: Full Code Wound(s) RT KNEE: Wound Type: Surgical Incision (Okay to remove Mepilex dressing on September 28, 2022. Okay to shower with dressing on. Do not submerge underwater for 6 weeks postoperatively. Patient also instructed to not place any ointments, Neosporin on incision for 6 weeks postoperatively.) Therapies Weight Bearing: Weight bearing as tolerated (With walker) Extremity Affected:: Right Lower Physical Therapy: Eval and Treat Occupational Therapy: Eval and Treat Problem/Diagnosis (1) Status post total right knee replacement: Status: Acute Code(s): Z96.651 - Presence of right artificial knee joint Plan: 1. S/P right total knee arthroplasty POD #2 2. Continue Pain Medications: Tylenol, meloxicam, oxycodone. Do not take any other nonsteroidal anti-inflammatories while using meloxicam/Mobic. 3. DVT Prophylaxis: Take 81 mg aspirin twice daily for 4 weeks postoperatively for DVT prophylaxis. Patient denies past history of DVT or pulmonary embolism 4. PT/OT: Weightbearing as tolerated with walker. Physical therapy did discuss with myself that she was not able to get up and walk due to nausea. She participated in therapy in the bed. 5. H & H: Waiting on this morning's lab work. Patient currently asymptomatic. Postoperative anemia secondary to acute blood loss from surgery without any intra operative complications. 6. Continue postoperative medical management per medicine: Case was discussed with medicine 7. Encouraged Incentive Spirometry 8. Currently on doxycycline for 2 weeks postoperatively. Patient currently on doxycycline due to preoperative malnutrition. I discussed with the patient potential side effects of doxycycline including sensitivity to the sunlight and increased risk of skin burn. Recommend patient take appropriate precautions. Also recommend patient to take probiotic while on the antibiotic. Patient voiced understanding agreement. 8. Disposition: Case was discussed in great detail yesterday with case management. Due to observation status with surgical intervention patient does not qualify for the transitional care unit through insurance. Patient has had discussion with case management and plan was to proceed with the transitional care unit and patient would like to pay [id number]. Plan will be for discharge to the transitional care unit today. We discussed postoperative medications in detail. Medications will be placed on chart for narcotic. Once she is discharged from the transitional care unit she should continue with the doxycycline for a total of 2 weeks postoperatively. She will keep her scheduled follow-up visit 2 weeks postoperatively with [facility] [place]. I have reviewed the [place] Automated Rx Reporting System (OARRS) report for this patient for refill pattern and other prescriber involvement as part of the appropriate surveillance for the provision of acute and chronic controlled medications. The report was requested and reviewed on the date of this entry and was considered in the prescribing process. This dictation was created using voice recognition software. Phonetic and/or grammatical errors may exist. Allergies/Procedures Done in Hospital Allergies promethazine HCl [From Phenergan] Allergy (Severe, Verified 09/23/22 06:35) Other heightens engery (zing) Penicillins Adverse Reaction (Severe, Verified 09/23/22 06:35) Swelling red dye Adverse Reaction (Severe, Verified 09/23/22 06:35) Unknown mouth to droop Tetanus Vaccines and Toxoid Adverse Reaction (Intermediate, Verified 09/23/22 06:35) NEEDS FOLLOW-UP Procedures: - (Right total knee arthroplasty September 23, 2022) Type of Care/Length of Stay Estimated LOS: Convalescent Care Less Than 30 days Type of Care Needed: Skilled Rehab Potential: Good Prognosis: Good Additional Orders/Day of Discharge Day of Discharge: 09/25/22 Discharge Plan Admission Admit Date/Time: 09/23/22 07:05 Attending Provider: Geo Machuca Primary Care Provider: Dago Emery [employer] Providers: See Valente Mark Discharge Orders/Prescriptions Prescriptions: New acetaminophen 500 mg Tablet 1,000 mg PO TID 14 Days Qty: 84 0RF Rx Instructions: Do not take more than 3000 mg Tylenol in a 24-hour period. aspirin 81 mg Tablet,Chewable 81 mg PO BID 30 Days Qty: 60 0RF Rx Instructions: Take 81 mg aspirin twice daily for 4 weeks postoperatively for DVT prophylaxis. meloxicam 7.5 mg Tablet 7.5 mg PO BID 30 Days Qty: 0 0RF Rx Instructions: Do not take any other nonsteroidal anti-inflammatories while using meloxicam/Mobic. famotidine 20 mg Tablet 20 mg PO DAILY Qty: 0 0RF Rx Instructions: Take for 4 weeks postoperatively while on aspirin and meloxicam doxycycline monohydrate 100 mg Capsule 100 mg PO BID 14 Days Qty: 28 0RF Rx Instructions: Take doxycycline for 2 weeks postoperatively oxycodone 5 mg Tablet 5 - 10 mg PO Q4H PRN PRN (Reason: Pain Score 4-10) 7 Days Qty: 42 0RF sennosides-docusate sodium [Stool Softener-Stimulant Laxat] 8.6-50 mg Tablet 2 tab PO BID 2 Days Qty: 8 0RF Rx Instructions: Take until first bowel movement, then as needed Continued levothyroxine [Levoxyl] 50 MCG tablet 50 mcg PO DAILY Patient Comments: THYROID Atenolol 100 MG tablet 100 mg PO DAILY Patient Comments: LOWERS BLOOD PRESURE losartan 100 MG tablet 100 mg PO DAILY Patient Comments: take 1 tablet by mouth once daily amlodipine 5 MG tablet 5 mg PO DAILY cholecalciferol (vitamin D3) 1,000 UNIT tablet 1,000 unit PO DAILY hydroxyurea 500 mg capsule 1,000 mg PO MOTUTHFRSA Rx Instructions: Except Sundays and Wednesdays, Adjust as instructed Discontinued aspirin 81 mg tablet,delayed release (DR/EC) 81 mg PO .QOD Referrals / Follow Up: Dago Emery Chi, MD [Primary Care Provider] - Landen Hernández PA-C [Med Staff - Adv Practice Prof] - Disposition Disposition (needs filled in before D/C Order can be placed): [facility] Facility
[2022-09-25 06:52] LABS: Hematocrit 34.3 % (37-47); Hemoglobin 11.3 g/dL (12.0-15.0); Mean Corp Hgb Conc 32.9 g/dL (32-36); Mean Corpuscular Hgb 36.1 pg (27.0-32.0); Mean Corpuscular Volume 109.6 fL (81-99); Mean Platelet Vol. 11.4 fl (6.2-12.0); Platelet Count 258 K/mm3 (150-450); RBC Distribution Width CV 13.3 % (11.6-14.6); Red Blood Count 3.13 M/mm3 (4.2-5.4); White Blood Count 8.2 K/mm3 (4.4-11.0)
[2022-09-25 08:00] VITALS: BP 114/61; PULSE 56; RESP 18; TEMP 36.8; O2SAT 97
--- NOTE | 2022-09-25 09:33 | CASEMGMT ---
Social Work Per physician, pt is ready for discharge today. STELLA spoke with Margaret in TCU and pt can be accepted today. Discharge orders faxed to TCU. STELLA met with pt and she is agreeable to d/c to TCU today private pay. RN updated on d/c plan. Disposition: TCU, private pay ARIE De Santiago
[2022-09-25] MEDS: Famotidine 20 MG Tablet PO (09:34)
[2022-09-25] MEDS: Atenolol 100 MG Tablet PO (09:34)
[2022-09-25] MEDS: Hydroxyurea 500 MG Capsule 1000 MG PO (09:34)
[2022-09-25] MEDS: Meloxicam 7.5 MG Tablet PO (09:34)
[2022-09-25] MEDS: amLODIPine 5 MG Tablet PO (09:35)
[2022-09-25] MEDS: Losartan Potassium 100 MG Tablet PO (09:35)
[2022-09-25] MEDS: Aspirin 81 MG TAB.CHEW PO (09:35)
[2022-09-25] MEDS: Doxycycline 100 MG CAPSULE PO (09:35)
[2022-09-25] MEDS: Cholecalciferol (VIT D3) 25 MCG TABLET (1,000 UNITS) PO (09:36)
== END 2022-09-25 09:56 | disposition skilled nursing facility (03) ==
LOC: SDC 14:23 → MS3 14:23
PROVIDERS: Anesthesiology; Physician Assistant Surgical; Admitting Provider Specialist; PCP Family Medicine Geriatric Medicine; Referring Provider Specialist; Visit Provider Specialist
PROC: 0SRC0JZ Replacement of Right Knee Joint with Synthetic Substitute, Open Approach (ICD-10-PCS; CPT 27447; principal; 2022-09-23 08:15)
DX: M17.11 Unilateral primary osteoarthritis, right knee (principal); D47.3 Essential (hemorrhagic) thrombocythemia; I10 Essential (primary) hypertension; M21.061 Valgus deformity, not elsewhere classified, right knee; Z79.899 Other long term (current) drug therapy; E55.9 Vitamin D deficiency, unspecified; E78.5 Hyperlipidemia, unspecified; E03.9 Hypothyroidism, unspecified; Z79.890 Hormone replacement therapy
CPT/HCPCS: 27447; S2900; 01402; 64447; 36415; 73560; 80048; 82040; 82962; 83735; 85025; 85027; 87081; 88305; 88311; 94668; 96365; 96366; 96375; 96376; 97110; 97116; 97162; 97166; 97530; 97535; 99221; 99252; C1776; J7120; A4216; G0378; G0463; J2405; J3475

== ENCOUNTER 2022-09-25 10:20 | Inpatient (IN) | payer SELFPAY ==
[2022-09-25 10:51] VITALS: BP 175/78; PULSE 64; RESP 14; TEMP 36.2; O2SAT 95; BMI 34.4
--- NOTE | 2022-09-25 11:06 | HP.PCM_ITS ---
HPI - General General Date of Admission: 09/25/22 Date of Service: 09/25/22 Chief Complaint: Here for rehabilitation. HPI Narrative BERNICE JUAN, is a 77 Female who presents with followin09/23/[address] [facility] observation status. 09/23/2022 Dr. Machuca performed right total knee arthroplasty. 09/24/2022 Sitting in bed, right knee pain controlled, walked 4 feet. Aspirin 81mg twice daily x 4 weeks for DVT prophylaxis. Hemoglobin 11.4. 09/24/2022 Lightheaded, private pay TCU. 09/25/2022 Walked 10 feet. WBAT with walker. Doxycycline 100mg bid x 2 weeks prophylaxis. 09/25/2022 Admit to TCU with debility, here for rehabilitation, strengthening, prior to discharge home alone. [facility] Medical History (Updated 09/25/22 @ 11:[address] Dago Emery MD) Ambulates with cane Anxiety Arthritis Depression Fracture of left hip requiring operative repair History of edema History of IBS History of pain when walking Hx of fracture of leg Hyperlipidemia Hypertension Hypothyroidism Melanoma in situ Migraine headache Non-smoker Osteopenia Post-menopausal Thrombocythemia Vitamin D deficiency Walker as ambulation aid Wears glasses Home Medications levothyroxine 50 mcg tablet (Levoxyl) 50 mcg PO DAILY thyroid 08/04/13 [History Last Taken 04/19/14 05:30] losartan 100 mg tablet 100 mg PO DAILY bp 06/06/18 [History Last Taken 12/06/18 07:00 100 MG] amlodipine 5 mg tablet 5 mg PO DAILY bp 07/21/18 [History Last Taken 09/25/22] cholecalciferol (vitamin D3) 25 mcg (1,000 unit) tablet 1,000 unit PO DAILY bones 10/26/19 [History Last Taken 09/25/22] hydroxyurea 500 mg capsule 1,000 mg PO MOTUTHFRSA bladder 09/03/22 [History Last Taken Unknown] acetaminophen 500 mg tablet 1,000 mg (2 x 500 mg) PO TID inflammation 14 days #84 tabs 09/25/22 [Rx Last Taken 09/25/22] aspirin 81 mg chewable tablet 81 mg PO BID heart health 30 days #60 tabs 09/25/22 [Rx Last Taken Unknown] atenolol 100 mg tablet 100 mg PO Q24H bp 09/25/22 [History Last Taken 09/25/22] doxycycline monohydrate 100 mg capsule 100 mg PO BID Antibiotic 14 days #28 caps 09/25/22 [Rx Last Taken Unknown] famotidine 20 mg tablet 20 mg PO DAILY reflux #0 tabs 09/25/22 [Rx Last Taken Un known] meloxicam 7.5 mg tablet 7.5 mg PO BID inflammation 30 days #0 tabs 09/25/22 [Rx Last Taken Unknown] oxycodone 5 mg tablet 5 - 10 mg (1 - 2 x 5 mg) PO Q4H PRN PRN Pain Score 4-10 7 days #42 tabs 09/25/22 [Rx Last Taken 09/25/22] sennosides 8.6 mg-docusate sodium 50 mg tablet (Stool Softener-Stimulant Laxative) 2 tab PO BID stool softener 2 days #8 tabs 09/25/22 [Rx Last Taken Unknown] Allergy/AdvReac Type Severity Reaction Status Date / Time promethazine HCl Allergy Severe Other Verified 09/23/22 06:35 [From Phenergan] Penicillins AdvReac Severe Swelling Verified 09/23/22 06:35 red dye AdvReac Severe Unknown Verified 09/23/22 06:35 Tetanus Vaccines and Toxoid AdvReac Intermediate NEEDS Verified 09/23/22 06:35 FOLLOW-UP Family History Father Rheumatoid arthritis Surgical History (Updated 09/25/22 @ 11:[address] Dago Emery MD) History of breast lump removal History of hip surgery History of total right knee replacement Hx of left cataract extraction Hx of right cataract extraction Social History (Updated 09/25/22 @ 11:[address] Dago Emery MD) household members: none housing: condominium Smoking Status: Never smoker second hand exposure: No alcohol intake: never substance use type: does not use justice/yazidi: Latter-Day seatbelt use: always do you feel safe at home: Yes ROS Constitutional Constitutional: Denies chills, fever(s) or weight gain ENT HEENT: Denies headache(s), nasal congestion or nasal discharge Cardiovascular Cardiovascular: Denies chest pain or palpitations Respiratory/Chest Respiratory/Chest: Denies cough, excessive phlegm production or shortness of breath with exertion Gastrointestinal Gastrointestinal: Denies abdominal pain, nausea or vomiting Genitourinary Genitourinary: Denies dysuria Musculoskeletal Musculoskeletal: Denies joint pain or joint swelling Integumentary Integumentary: Denies rash or wounds Neurologic Neurologic: Denies focal weakness, numbness or tingling Psychiatric Psychiatric: Denies anxiety, auditory hallucinations, depression, homicidal ideation or suicidal ideation Physical Exam Const alert General Appearance: cooperative HEENT normocephalic Eyes PERRL and EOMs intact bilaterally Neck supple, no JVD and no carotid bruits Resp normal respiratory effort, normal air movement and clear to auscultation bilaterally Cardio regular rate and regular rhythm GI normal to inspection, nondistended, normoactive bowel sounds, non-tender and non-distended Extremity normal capillary refill General Extremity: Negative for edema Skin no rashes or lesions noted General Skin Exam: no breakdown Psych affect normal Appearance: appropriate Assessment & Plan Assessment/Plan (1) Debility: (2) Status post total right knee replacement: (3) Essential thrombocythemia: (4) Hypertension: (5) Hyperlipidemia: (6) Hypothyroidism: (7) BMI 33.0-33.9,adult: PLAN: Plan 77 year old female with below past medical history hospitalized for right total knee arthroplasty 09/23/[address] Machuca, lives alone, admitted to TCU with debility, here for rehabilitation, strengthening, prior to discharge home alone. * Debility - PT/OT. * Pain - Tylenol 1000mg tid, Oxycodone 5-10mg q4h prn. * Bowel - senna/colace 2 tablets bid, Magnesium citrate 300ml po x 1 prn. * Adult immunization - Administer pneumonia vaccine, covid19 vaccine, flu vaccine as appropriate. * DVT prophylaxis - Aspirin 81mg bid thru 10/21/2022. * Hypertension - Atenolol 100mg daily, Losartan 100mg daily, Amlodipine 5mg cora ly. * s/p right TKA - Doxycycline 100mg bid thru 10/07/2022 prophylaxis. * GERD - Famotidine 20mg daily. * Thrombocytosis - Hydroxyurea 1000mg 5 days/week. * Hypothyroidism - Levothyroxine 50mcg daily. * Osteoarthritis - Meloxicam 7.5mg bid. * Vitamin D deficiency - D3 25mcg daily.
[2022-09-25] MEDS: Acetaminophen 500 MG Tablet 1000 MG PO ×2 (14:17→23:06)
[2022-09-25 14:52] VITALS: BP 105/54; PULSE 58; RESP 16; TEMP 36.3; O2SAT 96
[2022-09-25] MEDS: Aspirin 81 MG TAB.CHEW PO (16:54)
[2022-09-25] MEDS: Doxycycline 100 MG CAPSULE PO (16:54)
[2022-09-25] MEDS: Senna/Docusate Sodium 1 Tablet 2 TABLET PO (16:54)
[2022-09-25] MEDS: Meloxicam 7.5 MG Tablet PO (16:55)
[2022-09-26] MEDS: oxyCODONE 5 MG Tablet PO ×3 (00:25→22:17)
[2022-09-26 05:00] VITALS: BP 177/87; PULSE 71
[2022-09-26] MEDS: Losartan Potassium 100 MG Tablet PO (05:34)
[2022-09-26] MEDS: amLODIPine 5 MG Tablet PO (05:34)
[2022-09-26] MEDS: Atenolol 100 MG Tablet PO (05:34)
[2022-09-26] MEDS: Aspirin 81 MG TAB.CHEW PO ×2 (05:35→17:11)
[2022-09-26] MEDS: Acetaminophen 500 MG Tablet 1000 MG PO ×3 (05:35→22:16)
[2022-09-26] MEDS: Famotidine 20 MG Tablet PO (05:35)
[2022-09-26] MEDS: Levothyroxine 50 MCG Tablet PO (05:35)
[2022-09-26] MEDS: Meloxicam 7.5 MG Tablet PO ×2 (05:35→17:11)
[2022-09-26] MEDS: Cholecalciferol (VIT D3) 25 MCG TABLET (1,000 UNITS) PO (05:36)
[2022-09-26] MEDS: Doxycycline 100 MG CAPSULE PO ×2 (05:36→17:11)
[2022-09-26] MEDS: Hydroxyurea 500 MG Capsule 1000 MG PO (05:36)
[2022-09-26 08:13] LABS: Absolute Lymphocyte Count 0.75 X10^3/uL (0.83-4.51); Absolute Neutrophil Count 7.3 X10^3/uL (2.0-7.7); Basophil# 0.02 X10^3/uL; Basophil% 0.2 % (0-1); Eosinophil# 0.09 X10^3/uL; Hematocrit 33.8 % (37-47); Hemoglobin 11.3 g/dL (12.0-15.0); Lymphocyte # 0.75 X10^3/ul (0.83-4.51); Lymphocyte % 8.3 % (19-41); Mean Corp Hgb Conc 33.4 g/dL (32-36); Mean Corpuscular Volume 107.6 fL (81-99); Mean Platelet Vol. 11.1 fl (6.2-12.0); Monocyte# 0.85 X10^3/uL; Monocyte% 9.4 % (0-10); NRBC Flagged by Analyzer 0 % (0-5); Neutrophil % 80.5 % (47-70); Platelet Count 261 K/mm3 (150-450); RBC Distribution Width CV 13.4 % (11.6-14.6); RBC Distribution Width SD 52.2 fl (35.1-43.9); Red Blood Count 3.14 M/mm3 (4.2-5.4); White Blood Count 9.1 K/mm3 (4.4-11.0)
[2022-09-26 08:40] LABS: Anion Gap 4 (5-15); BUN 22 mg/dL (7-18); BUN/Creat Ratio 20.8 RATIO (10-20); Calcium,Total 8.6 mg/dL (8.5-10.1); Chloride 105 mmol/L (98-107); Creatinine, Serum 1.06 mg/dL (0.55-1.02); EST Glomerular Filtration Rate 53 mL/min (>60); Est Glom Filt Rate - Afr Amer 64 mL/min (>60); Estimated Creatinine Clearance 38.72 ml/min; Glucose 108 mg/dL (74-106); Potassium 3.7 mmol/L (3.5-5.1); Sodium Level 134 mmol/L (136-145)
[2022-09-26] MEDS: Tuberculin,Purif.prot.deriv. 50 TU/ML Vial 0.1 ML ID (10:21)
[2022-09-26 13:53] VITALS: BP 139/61; PULSE 66; RESP 16; TEMP 36.3; O2SAT 97
[2022-09-26] MEDS: Senna/Docusate Sodium 1 Tablet 2 TABLET PO (17:11)
[2022-09-27 06:00] VITALS: BP 147/70; PULSE 50
[2022-09-27] MEDS: Acetaminophen 500 MG Tablet 1000 MG PO ×2 (06:27→14:08)
[2022-09-27] MEDS: Senna/Docusate Sodium 1 Tablet 2 TABLET PO (06:28)
[2022-09-27] MEDS: Doxycycline 100 MG CAPSULE PO (06:28)
[2022-09-27] MEDS: Famotidine 20 MG Tablet PO (06:29)
[2022-09-27] MEDS: Levothyroxine 50 MCG Tablet PO (06:29)
[2022-09-27] MEDS: Losartan Potassium 100 MG Tablet PO (06:29)
[2022-09-27] MEDS: amLODIPine 5 MG Tablet PO (06:29)
[2022-09-27] MEDS: Cholecalciferol (VIT D3) 25 MCG TABLET (1,000 UNITS) PO (06:29)
[2022-09-27] MEDS: Meloxicam 7.5 MG Tablet PO (06:32)
--- NOTE | 2022-09-27 06:37 | NURSING ---
Atenolol held at this time d/t low HR. Will report to oncoming nurse and continue to monitor.
[2022-09-27] MEDS: Aspirin 81 MG TAB.CHEW PO (08:03)
[2022-09-27] MEDS: Atenolol 100 MG Tablet PO (10:27)
[2022-09-27 14:25] VITALS: BP 136/76; PULSE 54; RESP 16; TEMP 36.2; O2SAT 97
[2022-09-27] MEDS: oxyCODONE 5 MG Tablet PO (16:20)
[2022-09-27] MEDS: Ondansetron ODT 4 MG Tablet 8 MG PO (17:54)
--- NOTE | 2022-09-27 18:11 | NURSING ---
1800-pts friend out at desk and reports that pt is sick now from pain meds. pt in chair with eyes closed and slurred speech. friend reports that normally she is sensitive to stronger pain meds dr. robison and jannet phillips given and meds adjusted. will continue to monitor.
[2022-09-28] MEDS: Acetaminophen 500 MG Tablet 1000 MG PO ×3 (00:07→20:58)
[2022-09-28] MEDS: Meloxicam 7.5 MG Tablet PO ×2 (04:24→20:57)
--- NOTE | 2022-09-28 04:28 | NURSING ---
Pt requesting to take 6am meds w/ breakfast.
[2022-09-28] MEDS: Losartan Potassium 100 MG Tablet PO (07:55)
[2022-09-28] MEDS: Doxycycline 100 MG CAPSULE PO ×2 (07:55→20:57)
[2022-09-28] MEDS: Aspirin 81 MG TAB.CHEW PO ×2 (07:55→20:58)
[2022-09-28] MEDS: amLODIPine 5 MG Tablet PO (07:56)
[2022-09-28] MEDS: Hydroxyurea 500 MG Capsule 1000 MG PO (07:56)
[2022-09-28] MEDS: Senna/Docusate Sodium 1 Tablet 2 TABLET PO ×2 (07:57→20:58)
[2022-09-28] MEDS: Famotidine 20 MG Tablet PO (07:57)
[2022-09-28] MEDS: Levothyroxine 50 MCG Tablet PO (07:57)
[2022-09-28] MEDS: Cholecalciferol (VIT D3) 25 MCG TABLET (1,000 UNITS) PO (08:03)
[2022-09-28] MEDS: Atenolol 100 MG Tablet PO (08:55)
[2022-09-28] MEDS: traMADol 50 MG Tablet PO (09:03)
[2022-09-28] MEDS: oxyCODONE 5 MG Tablet PO (13:26)
[2022-09-28 13:58] VITALS: BP 122/61; PULSE 49; RESP 16; TEMP 36.2; O2SAT 97
--- NOTE | 2022-09-28 14:28 | CASEMGMT ---
Social Work Met with patient to complete initial assessment. Introduced self and role. Discussed patient's code status. Pt confirmed DNR-CC. MOLST placed in Dr. folder. SW inquired about providing payment. Pt stated Wyatt, her financial workers compensation attorney visited this morning and told pt he paid. SW explained to pt no payment has been made at this time. Pt stated she has her check book and credit card her drawer as her friend was going to berry picker machine operator today. SW offered to assist pt in calling Zubican's office and providing payment via credit card. Pt agreed and payment was made to June in Billing. Pt has paid for 21 days, EDC 10/15. Pt stated her f/u appt is 10/08 and plans to remain until that appt. SW to follow for DC planning. FIDENCIO BuchananW
--- NOTE | 2022-09-28 14:56 | NURSING ---
Offered covid booster, education on vaccine provided. Patient refuses at this time.
[2022-09-29] MEDS: traMADol 50 MG Tablet PO ×3 (03:32→22:45)
[2022-09-29] MEDS: oxyCODONE 5 MG Tablet PO (04:41)
[2022-09-29] MEDS: Meloxicam 7.5 MG Tablet PO ×2 (08:32→21:23)
[2022-09-29] MEDS: Polyethylene Glycol 3350 17 GM PACKET PO (08:32)
[2022-09-29] MEDS: Levothyroxine 50 MCG Tablet PO (08:33)
[2022-09-29] MEDS: Famotidine 20 MG Tablet PO (08:33)
[2022-09-29] MEDS: Senna/Docusate Sodium 1 Tablet 2 TABLET PO ×2 (08:33→21:23)
[2022-09-29] MEDS: Losartan Potassium 100 MG Tablet PO (08:33)
[2022-09-29] MEDS: Cholecalciferol (VIT D3) 25 MCG TABLET (1,000 UNITS) PO (08:34)
[2022-09-29] MEDS: Acetaminophen 500 MG Tablet 1000 MG PO ×2 (08:34→14:47)
[2022-09-29] MEDS: Atenolol 100 MG Tablet PO (08:35)
[2022-09-29] MEDS: Doxycycline 100 MG CAPSULE PO ×2 (08:35→21:23)
[2022-09-29] MEDS: Hydroxyurea 500 MG Capsule 1000 MG PO (08:35)
[2022-09-29] MEDS: Aspirin 81 MG TAB.CHEW PO ×2 (08:35→21:23)
[2022-09-29] MEDS: amLODIPine 5 MG Tablet PO (08:42)
--- NOTE | 2022-09-29 11:19 | PHA.CONS_ITS ---
TCU RX Drug Regimen Review Subjective/Objective Subjective/Objective: Subjective: TCU Admit. 77 YOF admitted to [facility] on 09/23 for for a total right knee replacement. Admitted to TCU on 09/25 for rehabilitation and strengthening prior to discharge home alone.? Objective: Allergies promethazine HCl [From Phenergan] Allergy (Severe, Verified 09/23/22 06:35) Other heightens engery (zing) Penicillins Adverse Reaction (Severe, Verified 09/23/22 06:35) Swelling red dye Adverse Reaction (Severe, Verified 09/23/22 06:35) Unknown mouth to droop Tetanus Vaccines and Toxoid Adverse Reaction (Intermediate, Verified 09/23/22 0 6:35) NEEDS FOLLOW-UP Current Medications Generic Name Dose Route Start Last Admin Trade Name Freq PRN Reason Stop Dose Admin Acetaminophen 1,000 mg 09/25/22 14:00 09/29/22 08:34 Acetaminophen 500 Mg Tablet PO 1,000 mg TID KENDRA Administration Amlodipine Besylate 5 mg 09/29/22 08:00 09/29/22 08:42 Amlodipine 5 Mg Tablet PO 5 mg DAILY@0800 [facility] Administration Aspirin 81 mg 09/28/22 20:00 09/29/22 08:35 Aspirin 81 Mg Tab.Chew PO 10/21/22 20:00 81 mg BID@ [facility] Administration Atenolol 100 mg 09/29/22 08:00 09/29/22 08:35 Atenolol 100 Mg Tablet PO 100 mg DAILY@0800 [facility] Administration Cholecalciferol 25 mcg 09/29/22 08:00 09/29/22 08:34 Cholecalciferol (Vit D3) 25 Mcg Tablet (1,000 Units) PO 25 mcg DAILY@0800 [facility] Administration Doxycycline Monohydrate 100 mg 09/28/22 20:00 09/29/22 08:35 Doxycycline 100 Mg Capsule PO 10/07/22 20:00 100 mg BID@ [facility] Administration Famotidine 20 mg 09/29/22 08:00 09/29/22 08:33 Famotidine 20 Mg Tablet PO 10/21/22 08:00 20 mg DAILY@0800 KENDRA Administration Hydroxyurea 1,000 mg 09/29/22 08:00 09/29/22 08:35 Hydroxyurea 500 Mg Capsule PO 1,000 mg MoTuThFrSa@0800 [facility] Administration Levothyroxine Sodium 50 mcg 09/29/22 06:00 09/29/22 08:33 Levothyroxine 50 Mcg Tablet PO 50 mcg DAILY@06 [facility] Administration Losartan Potassium 100 mg 09/29/22 08:00 09/29/22 08:33 Losartan Potassium 100 Mg Tablet PO 100 mg DAILY@08 KENDRA Administration Magnesium Citrate 300 ml 09/25/22 12:00 Magnesium Citrate 300 Ml PO X1 PRN Constipation Meloxicam 7.5 mg 09/28/22 20:00 09/29/22 08:32 Meloxicam 7.5 Mg Tablet PO 7.5 mg BID@ [facility] Administration Ondansetron HCl 8 mg 09/27/22 17:39 09/27/22 17:54 Ondansetron Odt 4 Mg Tablet PO 8 mg Q8H PRN PRN Administration NAUSEA Oxycodone HCl 5 mg 09/27/22 17:44 09/29/22 04:41 Oxycodone 5 Mg Tablet PO 5 mg Q4H PRN PRN Administration Pain Score 6-10 Polyethylene Glycol 17 gm 09/29/22 08:00 09/29/22 08:32 Polyethylene Glycol 3350 17 Gm Packet PO 17 gm DAILY [facility] Administration Senna/Docusate Sodium 2 tablet 09/28/22 20:00 09/29/22 08:33 Senna/Docusate Sodium 1 Tablet PO 2 tablet BID@ [facility] Administration Tramadol HCl 50 mg 09/27/22 17:41 09/29/22 03:32 Tramadol 50 Mg Tablet PO 50 mg Q6H PRN PRN Administration Pain Score 1-5 Tuberculin PPD 0.1 ml 10/03/22 10:00 Tuberculin,Purif.Prot.Deriv. 50 Tu/Ml Vial ID 10/03/22 10:01 X1 ONE Problem List (Updated 09/25/22 @ 11:[address] Dago Emery MD) BMI 33.0-33.9,adult (Acute) Debility (Acute) Status post total right knee replacement (Acute) Essential thrombocythemia (Chronic) Hypothyroidism (Chronic) Hyperlipidemia (Chronic) Hypertension (Chronic) Vital Signs Temp Pulse Resp BP Pulse Ox O2 Del Method 97.2 F L 49 L 16 122/61 H 97 Room Air 09/28/22 13:58 09/28/22 13:58 07/10/23 13:58 09/28/22 13:58 09/28/22 13:58 09/28/22 13:58 Oxygen Delivery Method Room Air Weight: 94.03 kg Body Mass Index (BMI) 34.4 Sodium 134 mmol/L (136-145) L 09/26/22 07:50 Potassium 3.7 mmol/L (3.5-5.1) 09/26/22 07:50 Chloride 105 mmol/L (98-107) 09/26/22 07:50 Carbon Dioxide 25.0 mmol/L (21.0-32.0) 09/26/22 07:50 Anion Gap 4 (5-15) L 09/26/22 07:50 BUN 22 mg/dL (7-18) H 09/26/22 07:50 Creatinine 1.06 mg/dL (0.55-1.02) H 09/26/22 07:50 Est GFR (MDRD) Af Amer 64 mL/min (>60) 09/26/22 07:50 Est GFR (MDRD) Non-Af 53 mL/min (>60) L 09/26/22 07:50 BUN/Creatinine Ratio 20.8 RATIO (10-20) H 09/26/22 07:50 Glucose 108 mg/dL (74-106) H 09/26/22 07:50 Assessment/Plan: 1. Pain: Tylenol 1000mg PO TID, Oxycodone 5-10mg Q4H PRN pain (6-10), Tramadol 50mg PO Q6H PRN pain (1-5). Please continue to monitor pain, Oversedation with dual opioids, PRN medication use. -Pt has had 1 dose of tramadol (knee pain 05/29. Reassessment 03/31) and 0 doses of oxycodone. 2. Bowel: senna/colace 2 T PO BID, Magnesium citrate 300ml PO x 1 PRN constipation. Please continue to monitor for increase/decreased constipation, increased/decreased diarrhea, PRN medication use. -Pt has has 0 doses of senna/colace and 0 doses of magnesium citrate to date. Pt has not had bowel movement to date. If not bowel movement in 2 days please consider advising use of senna/colace or administering PRN medication.? 3. DVT prophylaxis: Aspirin 81mg PO BID thru 10/21/2022. Please continue to monitor for increased bleeding/bruising, Platelets (261,000 on 09/26), GI upset/nausea/vomiting.? 4. Hypertension: Atenolol 100mg PO daily, Losartan 100mg PO daily, Amlodipine 5mg PO daily. Please continue to monitor renal function (Scr: 1.06 CrCl: 38.72), BP (136/76 on 09/27), HR (54 on 09/27), malaise, lethargy, peripheral edema, dizziness.? 5. TKA infection prophylaxis: Doxycycline 100mg PO BID thru 10/07/2022. Please continue to monitor for s/s of worsening infection, WBC (9.1 on 09/26).? 6. GERD: Famotidine 20mg PO daily. Please continue to monitor for s/s of GERD, educate on non-pharmacological means to prevent. 7. Thrombocytosis: Hydroxyurea 1000mg PO 5 days/week. Please continue to monitor platelets (261,000 on 09/26), WBC (last 9.1 on 09/26) 8. Hypothyroidism: Levothyroxine 50mcg PO daily. Please continue to monitor for s/s of hypo/hyperthyroidism, TSH/T4 (TSH 1.57 on 07/20/22) 9. Osteoarthritis: Meloxicam 7.5mg PO BID. Please continue to monitor pain, inflammation, renal function (Scr: 1.06 CrCl: 38.72), s/s of stomach ulcers.? 10. Nausea: Ondansetron 8mg PO PRN N/V. Please continue to monitor for worsening nausea/vomiting, HR (54 on 09/26), QT interval (404ms on 06/06/18) 11. Vitamin D deficiency: D3 25mcg PO daily. Please continue to monitor Vitamin D level (32.7 on 07/20) Assessment/Plan for indications treated with psychotropic medications: N/A Medical chart and medication regimen reviewed. The following medication irregularities or issues were identified: Ondansetron: please consider updated ECG/QT interval if clinically indicated, thanks. Date Date of Note:: 09/29/22
[2022-09-29 15:49] VITALS: BP 138/70; PULSE 76; RESP 16; TEMP 36.3; O2SAT 98
[2022-09-29 16:14] VITALS: BMI 34.4
[2022-09-29 23:11] VITALS: PULSE 52; RESP 16; O2SAT 97
[2022-09-30] MEDS: Polyethylene Glycol 3350 17 GM PACKET PO (08:01)
[2022-09-30] MEDS: Levothyroxine 50 MCG Tablet PO (08:01)
[2022-09-30] MEDS: Aspirin 81 MG TAB.CHEW PO ×2 (08:02→20:56)
[2022-09-30] MEDS: Losartan Potassium 100 MG Tablet PO (08:02)
[2022-09-30] MEDS: Doxycycline 100 MG CAPSULE PO ×2 (08:02→20:56)
[2022-09-30] MEDS: Senna/Docusate Sodium 1 Tablet 2 TABLET PO ×2 (08:03→20:56)
[2022-09-30] MEDS: Meloxicam 7.5 MG Tablet PO ×2 (08:03→20:56)
[2022-09-30] MEDS: Famotidine 20 MG Tablet PO (08:03)
[2022-09-30] MEDS: Cholecalciferol (VIT D3) 25 MCG TABLET (1,000 UNITS) PO (08:04)
[2022-09-30] MEDS: Atenolol 100 MG Tablet PO (08:04)
[2022-09-30] MEDS: amLODIPine 5 MG Tablet PO (08:10)
[2022-09-30] MEDS: traMADol 50 MG Tablet PO ×2 (13:00→20:59)
--- NOTE | 2022-09-30 13:18 | CASEMGMT ---
Social Work IDT met with patient for care plan meeting. Discussed patient's progress in PT/OT/SN. Pt is paying privately through 10/15. Pt has ortho appt 10/08. SW to follow up on 10/09 to discuss setting DC date. Will continue to follow for DC planning. FIDENCIO BuchananW
--- NOTE | 2022-09-30 14:24 | NURSING ---
Surgical Mepilex removed to right knee. Patient tolerated well. No drainage noted to site. No redness, but continues to have swelling to knee and lower leg. Area cleansed and left AMBULANCE DRIVER PARAMEDIC.
[2022-09-30 15:18] VITALS: BP 118/64; PULSE 56; RESP 16; TEMP 36.3; O2SAT 97
[2022-09-30] MEDS: Acetaminophen 500 MG Tablet 1000 MG PO (20:55)
[2022-09-30] MEDS: hydrOXYzine PAM 25 MG Capsule PO (20:56)
[2022-09-30] MEDS: oxyCODONE 5 MG Tablet PO (21:53)
[2022-10-01] MEDS: traMADol 50 MG Tablet PO ×2 (03:01→18:37)
[2022-10-01] MEDS: oxyCODONE 5 MG Tablet PO (05:45)
[2022-10-01] MEDS: Acetaminophen 500 MG Tablet 1000 MG PO ×3 (07:47→20:40)
[2022-10-01] MEDS: Polyethylene Glycol 3350 17 GM PACKET PO (07:47)
[2022-10-01] MEDS: Levothyroxine 50 MCG Tablet PO (07:47)
[2022-10-01] MEDS: Aspirin 81 MG TAB.CHEW PO ×2 (08:00→20:38)
[2022-10-01] MEDS: Losartan Potassium 100 MG Tablet PO (08:02)
[2022-10-01] MEDS: Doxycycline 100 MG CAPSULE PO ×2 (08:02→20:39)
[2022-10-01] MEDS: Meloxicam 7.5 MG Tablet PO ×2 (08:03→20:39)
[2022-10-01] MEDS: Hydroxyurea 500 MG Capsule 1000 MG PO (08:03)
[2022-10-01] MEDS: Famotidine 20 MG Tablet PO (08:04)
[2022-10-01] MEDS: Cholecalciferol (VIT D3) 25 MCG TABLET (1,000 UNITS) PO (08:05)
[2022-10-01] MEDS: Senna/Docusate Sodium 1 Tablet 2 TABLET PO ×2 (08:05→20:39)
[2022-10-01] MEDS: Atenolol 100 MG Tablet PO (08:09)
[2022-10-01] MEDS: amLODIPine 5 MG Tablet PO (08:12)
--- NOTE | 2022-10-01 11:30 | CASEMGMT ---
Social Work BIMS () and PHQ-9 (08/15) completed for MDS assessment. Ariadne Schafer MSW [employer]
--- NOTE | 2022-10-01 14:31 | MDS.RN ---
Pain interview for MDS completed.
[2022-10-01 14:54] VITALS: BP 121/64; PULSE 48; RESP 16; TEMP 36.1; O2SAT 97
[2022-10-01] MEDS: hydrOXYzine PAM 25 MG Capsule PO (18:37)
[2022-10-01 20:46] VITALS: PULSE 56; RESP 16; O2SAT 96
[2022-10-02] MEDS: traMADol 50 MG Tablet PO ×2 (04:04→12:31)
[2022-10-02] MEDS: hydrOXYzine PAM 25 MG Capsule PO (04:07)
[2022-10-02] MEDS: Polyethylene Glycol 3350 17 GM PACKET PO (07:48)
[2022-10-02] MEDS: Acetaminophen 500 MG Tablet 1000 MG PO ×3 (07:50→21:00)
[2022-10-02] MEDS: Levothyroxine 50 MCG Tablet PO (07:50)
[2022-10-02] MEDS: Losartan Potassium 100 MG Tablet PO (07:53)
[2022-10-02] MEDS: Aspirin 81 MG TAB.CHEW PO ×2 (07:53→21:00)
[2022-10-02] MEDS: Doxycycline 100 MG CAPSULE PO ×2 (07:53→21:00)
[2022-10-02] MEDS: Meloxicam 7.5 MG Tablet PO ×2 (07:54→21:00)
[2022-10-02] MEDS: Hydroxyurea 500 MG Capsule 1000 MG PO (07:54)
[2022-10-02] MEDS: Cholecalciferol (VIT D3) 25 MCG TABLET (1,000 UNITS) PO (07:56)
[2022-10-02] MEDS: Atenolol 50 MG Tablet PO (07:56)
[2022-10-02] MEDS: Famotidine 20 MG Tablet PO (07:56)
[2022-10-02] MEDS: Senna/Docusate Sodium 1 Tablet 2 TABLET PO ×2 (07:56→21:02)
[2022-10-02] MEDS: amLODIPine 5 MG Tablet PO (08:01)
--- NOTE | 2022-10-02 10:45 | NURSING ---
Associate Sales Note; When completing 1:1 visit with Diane, pt expressed concerns with having too much down time in room between therapy sessions. This worker offered to bring in computer, but pt denied stating she does not want it damaged during the stay. Referenced activity calendar in room and offered upcoming activities along with 1:1 activities, such as strolls around the unit/facility. Pt denied all offerings and other interventions. Pt stated she just wants to be home. Offered to refer to manager social responsibility for DC plans. Pt denied stating she can?t be home alone and needs help with care and transport to upcoming Dr?s appt. This worker notified therapy and manager social responsibility of above concerns. Therapy confirmed they?re following preferences of pt and treating in the afternoon. Will continue to offer activities per pt?s wishes.
[2022-10-02 14:17] VITALS: BP 124/65; PULSE 51; RESP 18; TEMP 36.7; O2SAT 96
[2022-10-02] MEDS: oxyCODONE 5 MG Tablet PO (16:24)
[2022-10-03] MEDS: Acetaminophen 500 MG Tablet 1000 MG PO ×2 (04:51→21:09)
[2022-10-03] MEDS: traMADol 50 MG Tablet PO ×2 (04:51→14:32)
[2022-10-03] MEDS: Levothyroxine 50 MCG Tablet PO (04:51)
[2022-10-03] MEDS: hydrOXYzine PAM 25 MG Capsule PO (05:59)
[2022-10-03] MEDS: Menthol/Lanolin/Calamine/Znox 113 GM Tube 1 APPLIC TOPICAL ×2 (06:00→17:34)
[2022-10-03] MEDS: oxyCODONE 5 MG Tablet PO ×3 (06:51→17:24)
[2022-10-03] MEDS: Aspirin 81 MG TAB.CHEW PO ×2 (08:17→21:09)
[2022-10-03] MEDS: Losartan Potassium 100 MG Tablet PO (08:18)
[2022-10-03] MEDS: Hydroxyurea 500 MG Capsule 1000 MG PO (08:18)
[2022-10-03] MEDS: Doxycycline 100 MG CAPSULE PO ×2 (08:18→21:09)
[2022-10-03] MEDS: Meloxicam 7.5 MG Tablet PO ×2 (08:19→21:09)
[2022-10-03 08:20] LABS: Absolute Lymphocyte Count 0.79 X10^3/uL (0.83-4.51); Basophil# 0.03 X10^3/uL; Basophil% 0.4 % (0-1); Eosinophil# 0.22 X10^3/uL; Eosinophils% 2.9 % (0-5); Hematocrit 34.5 % (37-47); Hemoglobin 11.4 g/dL (12.0-15.0); Lymphocyte # 0.79 X10^3/ul (0.83-4.51); Lymphocyte % 10.5 % (19-41); Mean Corpuscular Hgb 36.2 pg (27.0-32.0); Mean Corpuscular Volume 109.5 fL (81-99); Mean Platelet Vol. 10.4 fl (6.2-12.0); Monocyte# 0.48 X10^3/uL; Monocyte% 6.4 % (0-10); NRBC Flagged by Analyzer 0 % (0-5); Neutrophil # 5.95 X10^3/uL (2.7-7.7); Platelet Count 367 K/mm3 (150-450); RBC Distribution Width CV 13.7 % (11.6-14.6); RBC Distribution Width SD 53.6 fl (35.1-43.9); Red Blood Count 3.15 M/mm3 (4.2-5.4); White Blood Count 7.5 K/mm3 (4.4-11.0)
[2022-10-03] MEDS: Famotidine 20 MG Tablet PO (08:20)
[2022-10-03] MEDS: Atenolol 50 MG Tablet PO (08:21)
[2022-10-03] MEDS: Cholecalciferol (VIT D3) 25 MCG TABLET (1,000 UNITS) PO (08:21)
[2022-10-03] MEDS: amLODIPine 5 MG Tablet PO (08:27)
[2022-10-03 08:40] LABS: Anion Gap 7 (5-15); BUN 24 mg/dL (7-18); Calcium,Total 9.2 mg/dL (8.5-10.1); Chloride 106 mmol/L (98-107); Creatinine, Serum 0.96 mg/dL (0.55-1.02); EST Glomerular Filtration Rate 60 mL/min (>60); Est Glom Filt Rate - Afr Amer 72 mL/min (>60); Estimated Creatinine Clearance 42.76 ml/min; Glucose 97 mg/dL (74-106); Potassium 3.7 mmol/L (3.5-5.1); Sodium Level 137 mmol/L (136-145)
[2022-10-03] MEDS: Tuberculin,Purif.prot.deriv. 50 TU/ML Vial 0.1 ML ID (11:07)
[2022-10-03 15:55] VITALS: BP 130/81; PULSE 54; RESP 19; TEMP 36.6; O2SAT 96
--- NOTE | 2022-10-03 18:53 | NURSING ---
Patient has been c/o muscle spasms to right leg. Dr. Harding made aware and new order for Baclofen PRN.
[2022-10-03] MEDS: Senna/Docusate Sodium 1 Tablet 2 TABLET PO (21:09)
[2022-10-03 21:15] VITALS: PULSE 60; RESP 16; O2SAT 96
[2022-10-04] MEDS: Baclofen 10 MG Tablet 5 MG PO ×3 (01:24→16:28)
--- NOTE | 2022-10-04 03:07 | NURSING ---
Pt requests a muscle relaxer for spasms. Also requests to sit on the edge of the bed to help relieve sxs. Medicated w/ Baclofen 5mg. Pt able to position self w/ BLE dangling on the edge of the bed. This nurse then placed gripper socks and assisted pt to standing using FWW. Linens readjusted. Pt then sat down on the bed and this nurse assisted w/ placing BLE into bed. Positioned for comfort. Pt expresses some relief of symptoms and appreciation for assistance. Call light w/ in reach. Will continue to monitor.
[2022-10-04] MEDS: Acetaminophen 500 MG Tablet 1000 MG PO ×3 (05:25→21:23)
[2022-10-04] MEDS: Levothyroxine 50 MCG Tablet PO (05:26)
[2022-10-04] MEDS: Menthol/Lanolin/Calamine/Znox 113 GM Tube 1 APPLIC TOPICAL ×2 (05:29→18:08)
[2022-10-04] MEDS: oxyCODONE 5 MG Tablet PO ×3 (05:56→18:12)
--- NOTE | 2022-10-04 06:01 | NURSING ---
FRUIT PACKER reports pt is calling for a muscle relaxer. Upon entering room, pt is yelling- this nurse heard this noise across the singh. Medicated w/ Oxycodone as dose of Baclofen is too early. Given warm blanket and placed posterior to rt knee where pt verbalizes pain location. Encouraged to engage in deep breathing exercises to help promote pain relief. Will continue to monitor.
[2022-10-04] MEDS: Aspirin 81 MG TAB.CHEW PO ×2 (08:42→21:24)
[2022-10-04] MEDS: Doxycycline 100 MG CAPSULE PO ×2 (08:43→21:22)
[2022-10-04] MEDS: Senna/Docusate Sodium 1 Tablet 2 TABLET PO (08:43)
[2022-10-04] MEDS: Meloxicam 7.5 MG Tablet PO ×2 (08:43→21:22)
[2022-10-04] MEDS: Atenolol 50 MG Tablet PO (08:43)
[2022-10-04] MEDS: amLODIPine 5 MG Tablet PO (08:43)
[2022-10-04] MEDS: Losartan Potassium 100 MG Tablet PO (08:43)
[2022-10-04] MEDS: Famotidine 20 MG Tablet PO (08:43)
[2022-10-04] MEDS: Polyethylene Glycol 3350 17 GM PACKET PO (08:43)
[2022-10-04] MEDS: Cholecalciferol (VIT D3) 25 MCG TABLET (1,000 UNITS) PO (08:43)
[2022-10-04 16:00] VITALS: BP 130/58; PULSE 51; RESP 16; TEMP 36.4; O2SAT 96
[2022-10-05] MEDS: oxyCODONE 5 MG Tablet PO ×2 (02:00→17:44)
[2022-10-05] MEDS: Acetaminophen 500 MG Tablet 1000 MG PO ×3 (06:06→21:28)
[2022-10-05] MEDS: Levothyroxine 50 MCG Tablet PO (06:07)
[2022-10-05] MEDS: Menthol/Lanolin/Calamine/Znox 113 GM Tube 1 APPLIC TOPICAL ×2 (06:07→17:44)
[2022-10-05] MEDS: Aspirin 81 MG TAB.CHEW PO ×2 (08:48→19:50)
[2022-10-05] MEDS: Meloxicam 7.5 MG Tablet PO ×2 (08:49→19:50)
[2022-10-05] MEDS: Losartan Potassium 100 MG Tablet PO (08:49)
[2022-10-05] MEDS: Atenolol 50 MG Tablet PO (08:49)
[2022-10-05] MEDS: Hydroxyurea 500 MG Capsule 1000 MG PO (08:49)
[2022-10-05] MEDS: Doxycycline 100 MG CAPSULE PO ×2 (08:49→19:50)
[2022-10-05] MEDS: Cholecalciferol (VIT D3) 25 MCG TABLET (1,000 UNITS) PO (08:50)
[2022-10-05] MEDS: Famotidine 20 MG Tablet PO (08:50)
[2022-10-05] MEDS: amLODIPine 5 MG Tablet PO (08:52)
[2022-10-05 14:21] VITALS: BP 136/68; PULSE 53; RESP 16; TEMP 36.2; O2SAT 97
[2022-10-05] MEDS: traMADol 50 MG Tablet PO (14:54)
[2022-10-05 19:28] VITALS: PULSE 56; RESP 18; O2SAT 97
[2022-10-06] MEDS: oxyCODONE 5 MG Tablet PO ×3 (00:29→21:50)
[2022-10-06] MEDS: traMADol 50 MG Tablet PO (01:17)
[2022-10-06] MEDS: Baclofen 10 MG Tablet 5 MG PO (01:17)
[2022-10-06] MEDS: Acetaminophen 500 MG Tablet 1000 MG PO ×3 (06:34→21:52)
[2022-10-06] MEDS: Levothyroxine 50 MCG Tablet PO (06:34)
[2022-10-06] MEDS: Menthol/Lanolin/Calamine/Znox 113 GM Tube 1 APPLIC TOPICAL ×2 (06:35→18:31)
[2022-10-06] MEDS: Doxycycline 100 MG CAPSULE PO ×2 (08:07→21:52)
[2022-10-06] MEDS: amLODIPine 5 MG Tablet PO (08:07)
[2022-10-06] MEDS: Aspirin 81 MG TAB.CHEW PO ×2 (08:07→21:52)
[2022-10-06] MEDS: Meloxicam 7.5 MG Tablet PO ×2 (08:07→21:52)
[2022-10-06] MEDS: Losartan Potassium 100 MG Tablet PO (08:07)
[2022-10-06] MEDS: Famotidine 20 MG Tablet PO (08:08)
[2022-10-06] MEDS: Cholecalciferol (VIT D3) 25 MCG TABLET (1,000 UNITS) PO (08:08)
[2022-10-06] MEDS: Atenolol 50 MG Tablet PO (08:08)
[2022-10-06 09:18] VITALS: BMI 34.3
--- NOTE | 2022-10-06 11:52 | MDS.RN ---
Information for the mds was obtained from review of the clinical record, interview of resident, staff, and direct observation of resident's care.
[2022-10-06 12:54] VITALS: BP 143/63; PULSE 55; RESP 15; TEMP 36.6; O2SAT 97
[2022-10-06] MEDS: Hydroxyurea 500 MG Capsule 1000 MG PO (13:15)
--- NOTE | 2022-10-06 14:20 | CASEMGMT ---
Social Work Pt requested to speak with this worker. SW presented to room and spoke with pt. Answered questions. Clarified pt is paid through 10/15. Pt would like to DC either 10/13 or 10/14, but will decide after f/u ortho appt. Pt would like to use [facility] at DC, no DME needs and will need transport home. SW to coordinate at time of DC. Ariadne Schafer, MANIFOLD OPERATOR FLOOR REPRESENTATIVE
[2022-10-06] MEDS: Ondansetron ODT 4 MG Tablet 8 MG PO (15:57)
[2022-10-07] MEDS: traMADol 50 MG Tablet PO ×2 (08:36→21:27)
[2022-10-07] MEDS: Acetaminophen 500 MG Tablet 1000 MG PO ×3 (08:37→21:12)
[2022-10-07] MEDS: Senna/Docusate Sodium 1 Tablet 2 TABLET PO (08:37)
[2022-10-07] MEDS: Atenolol 50 MG Tablet PO (08:37)
[2022-10-07] MEDS: Levothyroxine 50 MCG Tablet PO (08:37)
[2022-10-07] MEDS: Aspirin 81 MG TAB.CHEW PO ×2 (08:38→21:12)
[2022-10-07] MEDS: Losartan Potassium 100 MG Tablet PO (08:38)
[2022-10-07] MEDS: Meloxicam 7.5 MG Tablet PO ×2 (08:38→21:12)
[2022-10-07] MEDS: amLODIPine 5 MG Tablet PO (08:38)
[2022-10-07] MEDS: Doxycycline 100 MG CAPSULE PO ×2 (08:38→21:12)
[2022-10-07] MEDS: Cholecalciferol (VIT D3) 25 MCG TABLET (1,000 UNITS) PO (08:38)
[2022-10-07] MEDS: Famotidine 20 MG Tablet PO (08:38)
[2022-10-07] MEDS: Menthol/Lanolin/Calamine/Znox 113 GM Tube 1 APPLIC TOPICAL ×2 (08:41→13:49)
[2022-10-07] MEDS: oxyCODONE 5 MG Tablet PO (13:51)
[2022-10-07 15:50] VITALS: BP 111/49; PULSE 51; RESP 16; TEMP 36.4; O2SAT 95
[2022-10-07 22:00] VITALS: RESP 16
[2022-10-08] MEDS: Levothyroxine 50 MCG Tablet PO (06:11)
[2022-10-08] MEDS: Acetaminophen 500 MG Tablet 1000 MG PO ×3 (06:11→21:59)
[2022-10-08] MEDS: traMADol 50 MG Tablet PO (06:12)
[2022-10-08] MEDS: Menthol/Lanolin/Calamine/Znox 113 GM Tube 1 APPLIC TOPICAL ×2 (06:12→17:21)
[2022-10-08] MEDS: Aspirin 81 MG TAB.CHEW PO ×2 (09:02→21:59)
[2022-10-08] MEDS: Atenolol 50 MG Tablet PO (09:04)
[2022-10-08] MEDS: Senna/Docusate Sodium 1 Tablet 2 TABLET PO ×2 (09:04→21:59)
[2022-10-08] MEDS: Meloxicam 7.5 MG Tablet PO ×2 (09:04→22:00)
[2022-10-08] MEDS: Hydroxyurea 500 MG Capsule 1000 MG PO (09:05)
[2022-10-08] MEDS: Cholecalciferol (VIT D3) 25 MCG TABLET (1,000 UNITS) PO (09:05)
[2022-10-08] MEDS: amLODIPine 5 MG Tablet PO (09:05)
[2022-10-08] MEDS: Famotidine 20 MG Tablet PO (09:05)
[2022-10-08] MEDS: Losartan Potassium 100 MG Tablet PO (09:06)
[2022-10-08] MEDS: Ondansetron ODT 4 MG Tablet 8 MG PO (13:36)
[2022-10-08] MEDS: hydrOXYzine PAM 25 MG Capsule PO (13:36)
[2022-10-08 13:51] VITALS: BP 148/63; PULSE 54; RESP 16; TEMP 36.7; O2SAT 98
[2022-10-08] MEDS: oxyCODONE 5 MG Tablet PO (18:55)
[2022-10-09] MEDS: Menthol/Lanolin/Calamine/Znox 113 GM Tube 1 APPLIC TOPICAL ×2 (06:10→16:29)
[2022-10-09] MEDS: Aspirin 81 MG TAB.CHEW PO ×2 (08:27→19:47)
[2022-10-09] MEDS: Acetaminophen 500 MG Tablet 1000 MG PO ×3 (08:27→21:27)
[2022-10-09] MEDS: Losartan Potassium 100 MG Tablet PO (08:28)
[2022-10-09] MEDS: Levothyroxine 50 MCG Tablet PO (08:28)
[2022-10-09] MEDS: Meloxicam 7.5 MG Tablet PO ×2 (08:29→19:46)
[2022-10-09] MEDS: Hydroxyurea 500 MG Capsule 1000 MG PO (08:29)
[2022-10-09] MEDS: amLODIPine 5 MG Tablet PO (08:30)
[2022-10-09] MEDS: Cholecalciferol (VIT D3) 25 MCG TABLET (1,000 UNITS) PO (08:30)
[2022-10-09] MEDS: Famotidine 20 MG Tablet PO (08:30)
[2022-10-09] MEDS: Senna/Docusate Sodium 1 Tablet 2 TABLET PO (08:30)
[2022-10-09] MEDS: Atenolol 50 MG Tablet PO (08:30)
--- NOTE | 2022-10-09 09:14 | NURSING ---
Addendum entered by Autumn Limon 10/09/22 09:39: Mari mcgregor returned call and clarified that ASA is to continue for 2 more weeks from call date and leave d/c date as is. Original Note: This nurse spoke with Dr. Machuca's office to clarify aspirin order, awaiting return phone call.
[2022-10-09] MEDS: oxyCODONE 5 MG Tablet PO ×2 (13:13→21:27)
--- NOTE | 2022-10-09 15:12 | CASEMGMT ---
Social Work SW followed up with pt to inquire about DC. Pt requesting to DC 10/14 and her cousin will transport her home at 1800. Confirmed [facility] for PT/OT, no DME needs. SW phoned referral to [facility] for PT/OT- SOC 10/15. Plan: DC home alone 10/14, [facility] PT/OT FIDENCIO BuchananW
--- NOTE | 2022-10-09 15:29 | PCM.DC.SUM ---
Providers Date of Admission: 09/25/22 Primary Care Physician: Dr. Dago Emery MD Reason For Visit: RIGHT TOTAL KNEE Diagnosis Discharge Diagnosis (1) Debility: Status: Acute Code(s): R53.81 - Other malaise (2) Status post total right knee replacement: Status: Acute Code(s): Z96.651 - Presence of right artificial knee joint (3) Essential thrombocythemia: Status: Chronic Code(s): D47.3 - Essential (hemorrhagic) thrombocythemia (4) Hypertension: Status: Chronic Code(s): I10 - Essential (primary) hypertension (5) Hyperlipidemia: Status: Chronic Code(s): E78.5 - Hyperlipidemia, unspecified (6) Hypothyroidism: Status: Chronic Code(s): E03.9 - Hypothyroidism, unspecified (7) BMI 33.0-33.9,adult: Status: Acute Code(s): Z68.33 - Body mass index [BMI] 33.0-33.9, adult Plan 77 year old female with below past medical history hospitalized for right total knee arthroplasty 09/23/[address] Machuca, lives alone, admitted to TCU with debility, here for rehabilitation, strengthening, prior to discharge home alone. Debility - PT/OT. Pain - Tylenol 1000mg tid, Oxycodone 5-10mg q4h prn. Bowel - senna/colace 2 tablets bid, Magnesium citrate 300ml po x 1 prn. Adult immunization - Administer pneumonia vaccine, covid19 vaccine, flu vaccine as appropriate. DVT prophylaxis - Aspirin 81mg bid thru 10/21/2022. Hypertension - Atenolol 100mg daily, Losartan 100mg daily, Amlodipine 5mg daily. s/p right TKA - Doxycycline 100mg bid thru 10/07/2022 prophylaxis. GERD - Famotidine 20mg daily. Thrombocytosis - Hydroxyurea 1000mg 5 days/week. Hypothyroidism - Levothyroxine 50mcg daily. Osteoarthritis - Meloxicam 7.5mg bid. Vitamin D deficiency - D3 25mcg daily. Medications at Discharge Home Medications levothyroxine 50 mcg tablet (Levoxyl) 50 mcg PO DAILY thyroid 08/04/13 losartan 100 mg tablet 100 mg PO DAILY bp 06/06/18 amlodipine 5 mg tablet 5 mg PO DAILY bp 07/21/18 cholecalciferol (vitamin D3) 25 mcg (1,000 unit) tablet 1,000 unit PO DAILY bones 10/26/19 hydroxyurea 500 mg capsule 1,000 mg PO MOTUTHFRSA bladder 09/03/22 acetaminophen 500 mg tablet 1,000 mg (2 x 500 mg) PO TID inflammation 14 days #84 tabs 09/25/22 famotidine 20 mg tablet 20 mg PO DAILY reflux #0 tabs 09/25/22 meloxicam 7.5 mg tablet 7.5 mg PO BID inflammation 30 days #0 tabs 09/25/22 aspirin 81 mg chewable tablet 81 mg PO BID@799,1999 7 days #14 tabs 10/09/22 atenolol 50 mg tablet 50 mg PO DAILY@799 30 days #30 tabs 10/09/22 ondansetron 4 mg disintegrating tablet 8 mg (2 x 4 mg) PO Q8H PRN PRN NAUSEA 30 days #90 tabs 10/09/22 oxycodone 5 mg tablet 5 mg PO Q4H PRN PRN Pain Score 6-10 7 days #42 tabs 10/09/22 sennosides 8.6 mg-docusate sodium 50 mg tablet (Stool Softener-Stimulant Laxative) 2 tab PO BID@ 30 days #120 tabs 10/09/22 Hospital Course Operations total knee replacement (Right.) Procedures None Summary of Care Provided Minutes Spent on Discharge: 35 Hospital Course: 77 year old female with below past medical history hospitalized for right total knee arthroplasty 09/23/[address] Machuca, lives alone, admitted to TCU with debility, here for rehabilitation, strengthening, prior to discharge home alone. Discharge home alone 10/14/2022, [facility] PT/OT. Physical Exam Const alert General Appearance: cooperative HEENT normocephalic Eyes PERRL and EOMs intact bilaterally Neck supple, no JVD and no carotid bruits Resp normal respiratory effort, normal air movement and clear to auscultation bilaterally Cardio regular rate and regular rhythm GI normal to inspection, nondistended, normoactive bowel sounds, non-tender and non-distended Extremity normal capillary refill General Extremity: Negative for edema Skin no rashes or lesions noted General Skin Exam: no breakdown Psych affect normal Appearance: appropriate Weight / BMI Weight Weight: 93.61 kg Body Mass Index (BMI) 34.3 ABG / Lab / Microbiology Data 10/03/22 08:05 10/03/22 08:05 D/C Instructions Discharge Diet: No restrictions Discharge Activity: Return to Normal Activity, May Shower and Use Walker Weight Bearing Status: Weight bearing as tolerated Call your doctor if you observe: Fever of 101 or Higher, Inability to urinate, Inability to have a bowel movement, Shortness of breath, Dizziness, Fainting spells, Swelling in the ankles, Chest pain and Uncontrolled pain Additional Instructions: Discharge home alone 10/14/2022, [facility] PT/OT. Please Follow Up With: Landen Degroot When: As scheduled. Meaningful Use Info Meaningful Use Diagnoses (Choose all that apply): None applicable Discharge Plan Admission Admit Date/Time: 09/25/22 10:20 Primary Reason for Your Visit: Debility. Attending Provider: Dago Emery Chi Primary Care Provider: Dago Emery Chi Instructions Additional Instructions / Restrictions: Discharge home alone 10/14/2022, [facility] PT/OT. Discharge Orders/Prescriptions Prescriptions: New aspirin 81 mg Tablet,Chewable 81 mg PO BID@799,1999 7 Days Qty: 14 0RF sennosides-docusate sodium [Stool Softener-Stimulant Laxat] 8.6-50 mg Tablet 2 tab PO BID@799,1999 30 Days Qty: 120 0RF atenolol 50 mg Tablet 50 mg PO DAILY@0800 30 Days Qty: 30 0RF oxycodone 5 mg Tablet 5 mg PO Q4H PRN PRN (Reason: Pain Score 6-10) 7 Days Qty: 42 0RF ondansetron 4 mg Tablet,Disintegrating 8 mg PO Q8H PRN PRN (Reason: NAUSEA) 30 Days Qty: 90 0RF Continued levothyroxine [Levoxyl] 50 MCG tablet 50 mcg PO DAILY Patient Comments: THYROID losartan 100 MG tablet 100 mg PO DAILY Patient Comments: take 1 tablet by mouth once daily amlodipine 5 MG tablet 5 mg PO DAILY cholecalciferol (vitamin D3) 1,000 UNIT tablet 1,000 unit PO DAILY hydroxyurea 500 mg capsule 1,000 mg PO MOTUTHFRSA Rx Instructions: Except Sundays and Wednesdays, Adjust as instructed acetaminophen 500 mg Tablet 1,000 mg PO TID 14 Days Qty: 84 0RF Rx Instructions: Do not take more than 3000 mg Tylenol in a 24-hour period. meloxicam 7.5 mg Tablet 7.5 mg PO BID 30 Days Qty: 0 0RF Rx Instructions: Do not take any other nonsteroidal anti-inflammatories while using meloxicam/Mobic. famotidine 20 mg Tablet 20 mg PO DAILY Qty: 0 0RF Rx Instructions: Take for 4 weeks postoperatively while on aspirin and meloxicam Discontinued aspirin 81 mg Tablet,Chewable 81 mg PO BID 30 Days Qty: 60 0RF Patient Comments: x4 weeks postoperatively Rx Instructions: Take 81 mg aspirin twice daily for 4 weeks postoperatively for DVT prophylaxis. doxycycline monohydrate 100 mg Capsule 100 mg PO BID 14 Days Qty: 28 0RF Patient Comments: x2 weeks until 10/07/22 Rx Instructions: Take doxycycline for 2 weeks postoperatively oxycodone 5 mg Tablet 5 - 10 mg PO Q4H PRN PRN (Reason: Pain Score 4-10) 7 Days Qty: 42 0RF sennosides-docusate sodium [Stool Softener-Stimulant Laxat] 8.6-50 mg Tablet 2 tab PO BID 2 Days Qty: 8 0RF Rx Instructions: Take until first bowel movement, then as needed atenolol 100 mg tablet 100 mg PO Q24H Patient Comments: take 1 tablet by mouth once daily Referrals / Follow Up: Dago Emery Chi, MD [Primary Care Provider] - 10/14/22 Disposition Disposition (needs filled in before D/C Order can be placed): Home Health Service
[2022-10-09 15:39] VITALS: BP 143/61; PULSE 56; RESP 16; TEMP 36.2; O2SAT 98
[2022-10-10] MEDS: Levothyroxine 50 MCG Tablet PO (06:22)
[2022-10-10] MEDS: Acetaminophen 500 MG Tablet 1000 MG PO ×3 (06:23→21:30)
[2022-10-10] MEDS: Menthol/Lanolin/Calamine/Znox 113 GM Tube 1 APPLIC TOPICAL ×2 (06:23→17:05)
[2022-10-10 07:34] LABS: Anion Gap 5 (5-15); BUN 24 mg/dL (7-18); BUN/Creat Ratio 24.1 RATIO (10-20); Calcium,Total 8.7 mg/dL (8.5-10.1); Chloride 109 mmol/L (98-107); EST Glomerular Filtration Rate 57 mL/min (>60); Est Glom Filt Rate - Afr Amer 69 mL/min (>60); Estimated Creatinine Clearance 41.05 ml/min; Glucose 101 mg/dL (74-106); Potassium 3.9 mmol/L (3.5-5.1); Sodium Level 138 mmol/L (136-145)
[2022-10-10 07:47] LABS: Absolute Lymphocyte Count 1.27 X10^3/uL (0.83-4.51); Absolute Neutrophil Count 3.2 X10^3/uL (2.0-7.7); Basophil# 0.02 X10^3/uL; Basophil% 0.4 % (0-1); Eosinophil# 0.27 X10^3/uL; Eosinophils% 5.2 % (0-5); Hematocrit 32.1 % (37-47); Hemoglobin 10.5 g/dL (12.0-15.0); Lymphocyte # 1.27 X10^3/ul (0.83-4.51); Lymphocyte % 24.4 % (19-41); Mean Corp Hgb Conc 32.7 g/dL (32-36); Mean Corpuscular Hgb 35.8 pg (27.0-32.0); Mean Corpuscular Volume 109.6 fL (81-99); Mean Platelet Vol. 10.3 fl (6.2-12.0); Monocyte# 0.42 X10^3/uL; Monocyte% 8.1 % (0-10); NRBC Flagged by Analyzer 0 % (0-5); Neutrophil # 3.21 X10^3/uL (2.7-7.7); Neutrophil % 61.5 % (47-70); Platelet Count 409 K/mm3 (150-450); RBC Distribution Width CV 13.9 % (11.6-14.6); RBC Distribution Width SD 54.4 fl (35.1-43.9); Red Blood Count 2.93 M/mm3 (4.2-5.4); White Blood Count 5.2 K/mm3 (4.4-11.0)
[2022-10-10] MEDS: Aspirin 81 MG TAB.CHEW PO ×2 (09:41→21:31)
[2022-10-10] MEDS: Senna/Docusate Sodium 1 Tablet 2 TABLET PO ×2 (09:41→21:30)
[2022-10-10] MEDS: Hydroxyurea 500 MG Capsule 1000 MG PO (09:41)
[2022-10-10] MEDS: Meloxicam 7.5 MG Tablet PO ×2 (09:42→21:30)
[2022-10-10] MEDS: amLODIPine 5 MG Tablet PO (09:43)
[2022-10-10] MEDS: Famotidine 20 MG Tablet PO (09:43)
[2022-10-10] MEDS: Atenolol 50 MG Tablet PO (09:43)
[2022-10-10] MEDS: Losartan Potassium 100 MG Tablet PO (09:43)
[2022-10-10] MEDS: Cholecalciferol (VIT D3) 25 MCG TABLET (1,000 UNITS) PO (09:44)
[2022-10-10] MEDS: traMADol 50 MG Tablet PO ×2 (09:47→21:30)
[2022-10-10 13:34] VITALS: BP 148/74; PULSE 53; RESP 16; TEMP 36.9; O2SAT 98
[2022-10-10 21:18] VITALS: PULSE 57; RESP 16; O2SAT 98
[2022-10-11] MEDS: oxyCODONE 5 MG Tablet PO (00:49)
[2022-10-11] MEDS: Acetaminophen 500 MG Tablet 1000 MG PO ×3 (08:20→21:33)
[2022-10-11] MEDS: Losartan Potassium 100 MG Tablet PO (08:21)
[2022-10-11] MEDS: amLODIPine 5 MG Tablet PO (08:21)
[2022-10-11] MEDS: Aspirin 81 MG TAB.CHEW PO ×2 (08:21→20:07)
[2022-10-11] MEDS: Levothyroxine 50 MCG Tablet PO (08:22)
[2022-10-11] MEDS: Meloxicam 7.5 MG Tablet PO ×2 (08:22→20:07)
[2022-10-11] MEDS: Senna/Docusate Sodium 1 Tablet 2 TABLET PO ×2 (08:22→20:07)
[2022-10-11] MEDS: Atenolol 50 MG Tablet PO (08:24)
[2022-10-11] MEDS: Famotidine 20 MG Tablet PO (08:24)
[2022-10-11] MEDS: Cholecalciferol (VIT D3) 25 MCG TABLET (1,000 UNITS) PO (08:24)
[2022-10-11] MEDS: traMADol 50 MG Tablet PO ×3 (08:30→21:33)
[2022-10-11] MEDS: Menthol/Lanolin/Calamine/Znox 113 GM Tube 1 APPLIC TOPICAL ×2 (08:53→15:30)
[2022-10-11 14:01] VITALS: BP 129/60; PULSE 50; RESP 16; TEMP 36.5; O2SAT 97
[2022-10-12] MEDS: Levothyroxine 50 MCG Tablet PO (05:16)
[2022-10-12] MEDS: Menthol/Lanolin/Calamine/Znox 113 GM Tube 1 APPLIC TOPICAL ×2 (05:17→18:24)
[2022-10-12] MEDS: Senna/Docusate Sodium 1 Tablet 2 TABLET PO (08:03)
[2022-10-12] MEDS: Meloxicam 7.5 MG Tablet PO ×2 (08:03→20:15)
[2022-10-12] MEDS: Atenolol 50 MG Tablet PO (08:03)
[2022-10-12] MEDS: Losartan Potassium 100 MG Tablet PO (08:03)
[2022-10-12] MEDS: Acetaminophen 500 MG Tablet 1000 MG PO ×3 (08:03→22:29)
[2022-10-12] MEDS: Famotidine 20 MG Tablet PO (08:03)
[2022-10-12] MEDS: Aspirin 81 MG TAB.CHEW PO ×2 (08:03→20:15)
[2022-10-12] MEDS: Hydroxyurea 500 MG Capsule 1000 MG PO (08:03)
[2022-10-12] MEDS: Cholecalciferol (VIT D3) 25 MCG TABLET (1,000 UNITS) PO (08:04)
[2022-10-12] MEDS: amLODIPine 5 MG Tablet PO (08:04)
[2022-10-12 08:06] VITALS: BP 159/70; PULSE 59
[2022-10-12] MEDS: oxyCODONE 5 MG Tablet PO ×2 (11:07→22:28)
[2022-10-12 15:24] VITALS: BP 140/61; PULSE 54; RESP 17; TEMP 36.6; O2SAT 97
[2022-10-12 20:17] VITALS: PULSE 66; RESP 18; O2SAT 96
[2022-10-12] MEDS: hydrOXYzine PAM 25 MG Capsule PO (23:37)
[2022-10-13] MEDS: Levothyroxine 50 MCG Tablet PO (06:28)
[2022-10-13] MEDS: Menthol/Lanolin/Calamine/Znox 113 GM Tube 1 APPLIC TOPICAL ×2 (06:29→17:16)
[2022-10-13] MEDS: amLODIPine 5 MG Tablet PO (08:18)
[2022-10-13] MEDS: Famotidine 20 MG Tablet PO (08:18)
[2022-10-13] MEDS: Losartan Potassium 100 MG Tablet PO (08:18)
[2022-10-13] MEDS: Hydroxyurea 500 MG Capsule 1000 MG PO (08:18)
[2022-10-13] MEDS: Atenolol 50 MG Tablet PO (08:18)
[2022-10-13] MEDS: Meloxicam 7.5 MG Tablet PO ×2 (08:18→20:14)
[2022-10-13] MEDS: Acetaminophen 500 MG Tablet 1000 MG PO ×3 (08:19→20:14)
[2022-10-13] MEDS: Aspirin 81 MG TAB.CHEW PO ×2 (08:19→20:14)
[2022-10-13] MEDS: Cholecalciferol (VIT D3) 25 MCG TABLET (1,000 UNITS) PO (08:19)
[2022-10-13] MEDS: hydrOXYzine PAM 25 MG Capsule PO ×2 (08:26→20:14)
[2022-10-13 08:28] VITALS: BP 153/72; PULSE 68
[2022-10-13 09:00] VITALS: BMI 34.4
--- NOTE | 2022-10-13 10:49 | CASEMGMT ---
Social Work BIMS () and PHQ-9 (08/15) completed for MDS assessment. Ariadne Schafer MSW NET COORDINATOR
[2022-10-13] MEDS: oxyCODONE 5 MG Tablet PO ×2 (13:05→20:13)
[2022-10-13 14:11] VITALS: BP 159/64; PULSE 63; RESP 18; TEMP 36.6; O2SAT 99
[2022-10-14] MEDS: Menthol/Lanolin/Calamine/Znox 113 GM Tube 1 APPLIC TOPICAL (04:30)
[2022-10-14] MEDS: Levothyroxine 50 MCG Tablet PO (04:30)
[2022-10-14] MEDS: Meloxicam 7.5 MG Tablet PO (08:22)
[2022-10-14] MEDS: Losartan Potassium 100 MG Tablet PO (08:22)
[2022-10-14] MEDS: Atenolol 50 MG Tablet PO (08:22)
[2022-10-14] MEDS: amLODIPine 5 MG Tablet PO (08:22)
[2022-10-14] MEDS: Aspirin 81 MG TAB.CHEW PO (08:22)
[2022-10-14] MEDS: Cholecalciferol (VIT D3) 25 MCG TABLET (1,000 UNITS) PO (08:22)
[2022-10-14] MEDS: Acetaminophen 500 MG Tablet 1000 MG PO (08:22)
[2022-10-14] MEDS: Famotidine 20 MG Tablet PO (08:22)
[2022-10-14 08:26] VITALS: BP 126/63; PULSE 77
[2022-10-14 09:49] VITALS: PULSE 61; O2SAT 96
[2022-10-14] MEDS: oxyCODONE 5 MG Tablet PO (11:23)
[2022-10-14 12:50] VITALS: BP 141/47; PULSE 70; RESP 18; TEMP 36.4; O2SAT 94
== END 2022-10-14 12:50 | disposition home health service (06) | DRG 561 ==
PROVIDERS: Admitting Provider Family Medicine Geriatric Medicine; PCP Family Medicine Geriatric Medicine; Referring Provider Family Medicine Geriatric Medicine; Visit Provider Family Medicine Geriatric Medicine
DX: Z47.1 Aftercare following joint replacement surgery (principal); D47.3 Essential (hemorrhagic) thrombocythemia; E78.5 Hyperlipidemia, unspecified; E03.9 Hypothyroidism, unspecified; I10 Essential (primary) hypertension; E55.9 Vitamin D deficiency, unspecified; K21.9 Gastro-esophageal reflux disease without esophagitis; Z79.82 Long term (current) use of aspirin; Z96.651 Presence of right artificial knee joint; Z79.890 Hormone replacement therapy; Z79.899 Other long term (current) drug therapy
CPT/HCPCS: 36415; 80048; 85025; 97110; 97112; 97116; 97162; 97166; 97530; 97535; 97802

== ENCOUNTER → 2023-01-25 | Outpatient (CLI) | payer MEDICARE, OTHER, SELFPAY ==
[2023-01-25 14:32] LABS: Absolute Lymphocyte Count 1.06 X10^3/uL (0.83-4.51); Absolute Neutrophil Count 2.8 X10^3/uL (2.0-7.7); Basophil# 0.01 X10^3/uL; Basophil% 0.2 % (0-1); Eosinophil# 0.05 X10^3/uL; Eosinophils% 1.1 % (0-5); Hemoglobin 11.8 g/dL (12.0-15.0); Lymphocyte # 1.06 X10^3/ul (0.83-4.51); Lymphocyte % 24.1 % (19-41); Mean Corp Hgb Conc 31.9 g/dL (32-36); Mean Corpuscular Hgb 36.3 pg (27.0-32.0); Mean Corpuscular Volume 113.8 fL (81-99); Mean Platelet Vol. 11.2 fl (6.2-12.0); Monocyte# 0.43 X10^3/uL; Monocyte% 9.8 % (0-10); NRBC Flagged by Analyzer 0 % (0-5); Neutrophil # 2.82 X10^3/uL (2.7-7.7); Neutrophil % 64.3 % (47-70); POSITIVE MORPHOLOGY YES; Platelet Count 265 K/mm3 (150-450); RBC Distribution Width CV 15.7 % (11.6-14.6); RBC Distribution Width SD 65.5 fl (35.1-43.9); Red Blood Count 3.25 M/mm3 (4.2-5.4); White Blood Count 4.4 K/mm3 (4.4-11.0)
[2023-01-25 14:38] LABS: Differential Indicated SCAN CRITERIA MET
[2023-01-25 14:50] LABS: ALB/GLOB Ratio 0.9 RATIO (0.9-2.4); AST(SGOT) 25 U/L (15-37); Alanine Aminotransfer ALT/SGPT 15 U/L (13-56); Albumin, Serum 3.3 g/dL (3.2-5.0); Alkaline Phosphatase 82 U/L (45-117); Anion Gap 7 (5-15); BUN 19 mg/dL (7-18); BUN/Creat Ratio 18.6 RATIO (10-20); Calcium,Total 9.1 mg/dL (8.5-10.1); Chloride 108 mmol/L (98-107); Creatinine, Serum 1.02 mg/dL (0.55-1.02); EST Glomerular Filtration Rate 56 mL/min (>60); Est Glom Filt Rate - Afr Amer 67 mL/min (>60); Globulin 3.8 g/dL (2.2-4.2); Glucose 116 mg/dL (74-106); Potassium 3.6 mmol/L (3.5-5.1); Protein, Total 7.1 g/dL (6.4-8.2); Sodium Level 141 mmol/L (136-145); Thyroid Stim Hormone (TSH) 1.65 uIU/mL (0.358-3.74)
[2023-01-25 14:59] LABS: Anisocytosis 2+; Differential Comment SCANNED; Macrocytosis 2+
== END | disposition home or self-care (01) ==
LOC: POLAB3 13:07
PROVIDERS: PCP Family Medicine Geriatric Medicine; Visit Provider Family Medicine Geriatric Medicine
DX: E11.65 Type 2 diabetes mellitus with hyperglycemia (principal); I10 Essential (primary) hypertension; E55.9 Vitamin D deficiency, unspecified
CPT/HCPCS: 36415; 80053; 82306; 84443; 85025

== ENCOUNTER → 2024-01-31 | Outpatient (CLI) | payer MEDICARE, OTHER, SELFPAY ==
[2024-01-31 13:40] LABS: Absolute Lymphocyte Count 1.16 X10^3/uL (0.83-4.51); Absolute Neutrophil Count 3.3 X10^3/uL (2.0-7.7); Basophil# 0.02 X10^3/uL; Basophil% 0.4 % (0-1); Eosinophil# 0.05 X10^3/uL; Hematocrit 38.3 % (37-47); Hemoglobin 12.8 g/dL (12.0-15.0); Lymphocyte # 1.16 X10^3/ul (0.83-4.51); Lymphocyte % 22.9 % (19-41); Mean Corp Hgb Conc 33.4 g/dL (32-36); Mean Corpuscular Volume 110.7 fL (81-99); Monocyte# 0.48 X10^3/uL; Monocyte% 9.5 % (0-10); NRBC Flagged by Analyzer 0 % (0-5); Neutrophil # 3.34 X10^3/uL (2.7-7.7); Neutrophil % 65.8 % (47-70); Platelet Count 292 K/mm3 (150-450); RBC Distribution Width CV 14.3 % (11.6-14.6); RBC Distribution Width SD 57.3 fl (35.1-43.9); Red Blood Count 3.46 M/mm3 (4.2-5.4); White Blood Count 5.1 K/mm3 (4.4-11.0)
[2024-01-31 14:08] LABS: Vitamin D,25 Hydroxy 20.8 ng/mL
[2024-01-31 14:16] LABS: AST(SGOT) 33 U/L (15-37); Alanine Aminotransfer ALT/SGPT 19 U/L (13-56); Albumin, Serum 3.5 g/dL (3.2-5.0); Alkaline Phosphatase 96 U/L (45-117); Anion Gap 9 (5-15); BUN 22 mg/dL (7-18); BUN/Creat Ratio 23.5 RATIO (10-20); Calcium,Total 9.1 mg/dL (8.5-10.1); Chloride 109 mmol/L (98-107); Creatinine, Serum 0.94 mg/dL (0.55-1.02); EST Glomerular Filtration Rate 61 mL/min (>60); Est Glom Filt Rate - Afr Amer 74 mL/min (>60); Globulin 3.6 g/dL (2.2-4.2); Glucose 108 mg/dL (74-106); Potassium 4.1 mmol/L (3.5-5.1); Protein, Total 7.1 g/dL (6.4-8.2); Sodium Level 141 mmol/L (136-145)
== END | disposition home or self-care (01) ==
LOC: POLAB3 13:16
PROVIDERS: PCP Family Medicine Geriatric Medicine; Visit Provider Family Medicine Geriatric Medicine
DX: I10 Essential (primary) hypertension (principal); E55.9 Vitamin D deficiency, unspecified
CPT/HCPCS: 36415; 80053; 82306; 84443; 85025

== ENCOUNTER → 2024-07-31 | Outpatient (CLI) | payer MEDICARE, OTHER, SELFPAY | END | disposition home or self-care (01) | PROVIDERS: PCP Family Medicine Geriatric Medicine; Referring Provider Family Medicine Geriatric Medicine; Visit Provider Family Medicine Geriatric Medicine | DX: Z01.818 Encounter for other preprocedural examination (principal); E11.65 Type 2 diabetes mellitus with hyperglycemia; E55.9 Vitamin D deficiency, unspecified; I10 Essential (primary) hypertension ==

== ENCOUNTER → 2024-08-01 | Outpatient (CLI) | payer MEDICARE, OTHER, SELFPAY ==
--- NOTE | 2024-08-01 13:51 | EKG12_ITS ---
Test Reason : PREOP Blood Pressure : */* mmHG Vent. Rate : 50 BPM Atrial Rate : 50 BPM P-R Int : 196 ms QRS Dur : 84 ms QT Int : 440 ms P-R-T Axes : 67 73 47 degrees QTcB Int : [address] abnormality, possible digitalis effect Abnormal ECG Confirmed by Omero Armas ([id number]), state editor BONY SANCHEZ ([id number]) on 08/03/2024 10:09:09 AM Referred By: Dago Emery Confirmed By: Omero Armas
--- NOTE | 2024-08-01 13:59 | CT_ITS ---
PROCEDURE: EXTREMITY LOWER WITHOUT CONTRA 08/01/2024 REASON FOR EXAM: OSTEOARTHRITIS LEFT KNEE TECHNIQUE: Axial CT images of the left hip, left knee, left ankle obtained without intravenous contrast, as a FRANCESCA exam for the knee.. Coronal and Sagittal reconstruction series were provided for the left knee. One or more dose reduction techniques were used (e.g., Automated exposure control, adjustment of the mA and/or kV according to patient size, use of iterative reconstruction technique). RADIATION DOSE SUMMARY: DLP: 1328.46 mGycm. COMPARISON: None provided. FINDINGS: Partially visualized left proximal femoral fixation device in place. No evidence of metallic fracture or loosening. Imaging of the left ankle demonstrates mild degenerative changes. Partially visualized fixation device in the distal tibia without apparent complication. Imaging of the left hip demonstrates moderate degenerative changes, with significant partial joint narrowing. No evidence of femoral head osteonecrosis. The left knee demonstrates a small joint effusion. Moderately severe to severe tricompartmental left knee degenerative changes are noted. No fracture site is seen. Moderate arterial calcification is noted. CT/Extremity Lower without Contra IMPRESSION: 1. Degenerative changes of the left hip, left ankle, and especially left knee. 2. Partially visualized fixation devices of the proximal left femur and distal left tibia without apparent complication. Reading Location: [facility]
== END | disposition home or self-care (01) ==
PROVIDERS: PCP Family Medicine Geriatric Medicine; Referring Provider Family Medicine Geriatric Medicine; Visit Provider Family Medicine Geriatric Medicine
DX: Z01.818 Encounter for other preprocedural examination (principal); M17.12 Unilateral primary osteoarthritis, left knee
CPT/HCPCS: 73700; 93005

== ENCOUNTER 2024-10-16 16:36 | Inpatient (IN) | payer MEDICARE, OTHER, SELFPAY ==
[2024-07-31 14:58] LABS: Prothrombin Time (Protime)PT. 12.6 SECONDS (11.7-14.9)
[2024-07-31 14:59] LABS: Partial Thromboplast Time 26.1 Seconds (24.1-36.2)
[2024-07-31 15:30] LABS: Albumin, Serum 3.9 g/dL (3.4-4.8)
[2024-07-31 15:33] LABS: Magnesium 2.3 mg/dL (1.5-2.2)
[2024-07-31 15:45] LABS: AST(SGOT) 22 U/L (<=31); Alanine Aminotransfer ALT/SGPT 14 U/L (<=34); Albumin, Serum 4.0 g/dL (3.4-4.8); Alkaline Phosphatase 92 U/L (35-104); Anion Gap 12 (5-15); BUN 19 mg/dL (4-19); BUN/Creat Ratio 19.1 RATIO (10-20); Calcium,Total 9.5 mg/dL (7.6-11.0); Carbon Dioxide 23.0 mmol/L (21.0-32.0); Chloride 105 mmol/L (98-108); Globulin 2.4 g/dL (2.2-4.2); Glucose 127 mg/dL (70-99); Potassium 4.5 mmol/L (3.3-5.1)
[2024-07-31 15:57] LABS: Vitamin D,25 Hydroxy 18.9 ng/mL (30-100)
--- NOTE | 2024-08-01 16:27 | PAT.ANESEVAL ---
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 When Was Last Pacemaker Check QUESTION #4 FULL TEXT: You/Your Family Experience fever (hyperthermia) with Anesthesia Last Oral Intake Last Oral intake: Last Oral Intake NPO since Meds taken in AM with sips of water? Meds patient instructed to take am of surgery PONV PONV - talent development coordinator: PONV - talent development coordinator Female Yes 07/31/24 11:35 HX of Motion Sickness Yes 07/31/24 11:35 HX of N/V After Surgery No 07/31/24 11:35 Non-Smoker Yes 07/31/24 11:35 Duration of Surgery greater Yes 07/31/24 11:35 than 60 minutes Number of Risk Factors 4 07/31/24 11:35 PONV Score Severe Risk 07/31/24 11:35 Height & Weight Height & Weight: Anesthesia: Height & Weight Height 5 ft 5 in 07/10/24 13:45 Respiratory Assessment Respiratory Assessment - talent development coordinator: Respiratory Tract Infection Hx - talent development coordinator Hx Respiratory Tract Infection No 07/31/24 11:35 STOP Sleep Apnea STOP Sleep Apnea - talent development coordinator: STOP Sleep Apnea - talent development coordinator Hx Hypertension Yes: CONTROLLED WITH MED 07/31/24 11:35 Hx Sleep Apnea No 07/31/24 11:35 CPAP No 09/23/22 10:11 BIPAP No 12/02/18 13:53 Do you snore loudly (louder No 07/31/24 11:35 than talking or can be heard Do you often feel tired/ No 07/31/24 11:35 fatigued/ sleepy during daytime? Has anyone observed you stop No 07/31/24 11:35 breathing during sleep? STOP Results Negative 07/31/24 11:35 QUESTION #5 FULL TEXT : Do you snore loudly (louder than talking or can be heard through closed doors)? Tobacco Use History Tobacco Use History - talent development coordinator: Tobacco Use History - talent development coordinator Tobacco Use Smoking Status Never smoker 07/31/24 11:35 Hx Tobacco Use No 07/31/24 11:35 Years Smoking Packs Smoked per Day Smoking Cessation Date was within the last 15 years Hx Smoking Cessation Date Hx Smoking Cessation Counseling Hematologic Medial History Hematologic Hx - talent development coordinator: Hematologic Medical Hx - documentation nurse Hx of Blood Transfusion No 07/31/24 11:35 Hx of Transfusion in last 3 No 07/31/24 11:35 Months Date of Last Transfusion (if within last 3 months) Ever experience any problems No 07/31/24 11:35 with transfusion(s)? Specify any problems Hx of Preganancy in last 3 N/A 07/31/24 11:35 Months Nurse Filling Out Transfusion NBUCHER 07/31/24 11:35 & Questions: Date: 07/31/24 07/31/24 11:35 Time: 11:38 07/31/24 11:35 Patient unable to answer at this time (ie. confused, unrespo /Reproduction History /Reproductive History - talent development coordinator: /Reproductive Hx- talent development coordinator Hx Now No 07/31/24 11:35 Gestational Age (in weeks): EDC: Hx Hx Para Hx Section SAB No 07/31/24 11:35 PFSH Medical History (Updated 07/31/24 @ 11:45 by Jessica Ahuja) Thyroid disease Wears glasses Post-menopausal Depression Anxiety Ambulates with cane Walker as ambulation aid Arthritis Migraine headache History of IBS Non-smoker History of edema History of pain when walking Thrombocythemia Hx of fracture of leg Fracture of left hip requiring operative repair Vitamin D deficiency Osteopenia Melanoma in situ Hypothyroidism Hyperlipidemia Hypertension Home Medications ?Medication ?Instructions ?Recorded ?Last Taken ?Type levothyroxine 50 mcg tablet 50 mcg PO DAILY thyroid 08/04/13 04/19/14 05:30 History (Levoxyl) losartan 100 mg tablet 100 mg PO DAILY bp 06/06/18 12/06/18 07:00 History 100 MG amlodipine 5 mg tablet 5 mg PO DAILY bp 07/21/18 09/25/22 History cholecalciferol (vitamin D3) 25 1,000 unit PO DAILY bones 10/26/19 09/25/22 History mcg (1,000 unit) tablet hydroxyurea 500 mg capsule 1,000 mg PO MOTUTHFRSA bladder 09/03/22 Unknown History acetaminophen 500 mg tablet 1,000 mg (2 x 500 mg) PO TID 09/25/22 09/25/22 Rx inflammation 14 days #84 tabs aspirin 81 mg chewable tablet 81 mg PO BID@0800,2000 7 days #14 10/09/22 Unknown Rx tabs atenolol 50 mg tablet 50 mg PO DAILY@0800 30 days #30 10/09/22 Unknown Rx tabs Allergy/AdvReac Type Severity Reaction Status Date / Time promethazine HCl (From Allergy Severe Other Verified 07/31/24 11:30 Phenergan) Penicillins AdvReac Severe Swelling Verified 07/31/24 11:30 red dye AdvReac Severe Unknown Verified 07/31/24 11:30 Tetanus Vaccines and Toxoid AdvReac Intermediate NEEDS Verified 07/31/24 11:30 FOLLOW-UP Family History Father Rheumatoid arthritis Surgical History History of total right knee replacement Hx of right cataract extraction Hx of left cataract extraction History of breast lump removal History of hip surgery Social History household members: none housing: condominium Smoking Status: Never smoker second hand exposure: No alcohol intake: never substance use type: does not use justice/mandaeism: Jainism seatbelt use: always do you feel safe at home: Yes Recommendation Anesthesia Recommendation Anesthesia recommendation: Anesthesia NOT approved Reason NOT optimized for anesthesia: Patient has < 3 METs and no recent cardiac work-up for intermediate risk surgery.
--- NOTE | 2024-10-05 15:53 | PAT.ANE_ITS ---
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 When Was Last Pacemaker Check QUESTION #4 FULL TEXT: You/Your Family Experience fever (hyperthermia) with Anesthesia Last Oral Intake Last Oral intake: Last Oral Intake NPO since Meds taken in AM with sips of water? Meds patient instructed to take am of surgery PONV PONV - emergency vehicle operations instructor: PONV - emergency vehicle operations instructor Female Yes 10/04/24 13:47 HX of Motion Sickness Yes 10/04/24 13:47 HX of N/V After Surgery No 10/04/24 13:47 Non-Smoker Yes 10/04/24 13:47 Duration of Surgery greater Yes 10/04/24 13:47 than 60 minutes Number of Risk Factors 4 10/04/24 13:47 PONV Score Severe Risk 10/04/24 13:47 Height & Weight Height & Weight: Anesthesia: Height & Weight Height 5 ft 5 in 09/20/24 14:30 Respiratory Assessment Respiratory Assessment - emergency vehicle operations instructor: Respiratory Tract Infection Hx - emergency vehicle operations instructor Hx Respiratory Tract Infection No 10/04/24 13:47 STOP Sleep Apnea STOP Sleep Apnea - emergency vehicle operations instructor: STOP Sleep Apnea - emergency vehicle operations instructor Hx Hypertension Yes: CONTROLLED WITH MED 10/04/24 13:47 Hx Sleep Apnea No 10/04/24 13:47 CPAP No 10/04/24 13:47 BIPAP No 10/04/24 13:47 Do you snore loudly (louder No 10/04/24 13:47 than talking or can be heard Do you often feel tired/ No 10/04/24 13:47 fatigued/ sleepy during daytime? Has anyone observed you stop No 10/04/24 13:47 breathing during sleep? STOP Results Negative 10/04/24 13:47 QUESTION #5 FULL TEXT : Do you snore loudly (louder than talking or can be heard through closed doors)? Tobacco Use History Tobacco Use History - emergency vehicle operations instructor: Tobacco Use History - emergency vehicle operations instructor Tobacco Use Smoking Status Never smoker 10/04/24 13:47 Hx Tobacco Use No 10/04/24 13:47 Years Smoking Packs Smoked per Day Smoking Cessation Date was within the last 15 years Hx Smoking Cessation Date Hx Smoking Cessation Counseling Hematologic Medial History Hematologic Hx - emergency vehicle operations instructor: Hematologic Medical Hx - drum drier operator Hx of Blood Transfusion No 10/04/24 13:47 Hx of Transfusion in last 3 No 10/04/24 13:47 Months Date of Last Transfusion (if within last 3 months) Ever experience any problems No 10/04/24 13:47 with transfusion(s)? Specify any problems Hx of Preganancy in last 3 No 10/04/24 13:47 Months Nurse Filling Out Transfusion DSCHRIBER 10/04/24 13:47 & Questions: Date: 10/04/24 10/04/24 13:47 Time: 13:47 10/04/24 13:47 Patient unable to answer at this time (ie. confused, unrespo /Reproduction History /Reproductive History - emergency vehicle operations instructor: /Reproductive Hx- emergency vehicle operations instructor Hx Now No 10/04/24 13:47 Gestational Age (in weeks): EDC: Hx Hx Para Hx Section SAB No 10/04/24 13:47 PFSH Medical History (Updated 10/04/24 @ 13:55 by Joanie Rodgers) Cardiology follow-up encounter Wears glasses Post-menopausal Depression Anxiety Ambulates with cane Walker as ambulation aid Arthritis Migraine headache History of IBS Non-smoker History of edema History of pain when walking Thrombocythemia Hx of fracture of leg Fracture of left hip requiring operative repair Vitamin D deficiency Osteopenia Melanoma in situ Hypothyroidism Hyperlipidemia Hypertension Home Medications ?Medication ?Instructions ?Recorded ?Last Taken ?Type levothyroxine 50 mcg tablet 50 mcg PO DAILY thyroid 04/19/14 05:30 History (Levoxyl) losartan 100 mg tablet 100 mg PO DAILY bp 06/06/18 12/06/18 07:00 History 100 MG amlodipine 5 mg tablet 5 mg PO DAILY bp 07/21/18 History cholecalciferol (vitamin D3) 25 1,000 unit PO DAILY pravin michael 10/26/19 09/25/22 History mcg (1,000 unit) tablet atenolol 50 mg tablet 50 mg PO DAILY@0800 30 days #30 10/09/22 Unknown Rx tabs aspirin 81 mg chewable tablet 81 mg PO DAILY 09/20/24 Unknown History hydroxyurea 500 mg capsule 1,000 mg (2 x 500 mg) PO Unknown Rx MOTUTHFRSA #100 caps acetaminophen 500 mg tablet 1,000 mg PO BID PRN inflam mation 10/04/24 Unknown History Allergy/AdvReac Type Severity Reaction Status Date / Time promethazine HCl (From Allergy Severe Other Verified 10/04/24 13:42 Phenergan) Penicillins AdvReac Severe Swelling Verified 10/04/24 13:42 red dye AdvReac Severe Unknown Verified 10/04/24 13:42 Tetanus Vaccines and Toxoid AdvReac Intermediate NEEDS Verified 10/04/24 13:42 FOLLOW-UP Family History Father Rheumatoid arthritis Surgical History History of total right knee replacement Hx of right cataract extraction Hx of left cataract extraction History of breast lump removal History of hip surgery Social History household members: none housing: condominium Smoking Status: Never smoker second hand exposure: No alcohol intake: never substance use type: does not use justice/buddhist: Uatsdin seatbelt use: always do you feel safe at home: Yes Audit: Pertinent Findings Pertinent Findings Consult pertinent findings: Cardiology note 09/20/2024. Per primer waterproofing machine operator from a cardiovascular standpoint the patient can proceed with surgical intervention. Parasitology Teacher states I did not feel the delay in her procedure for a echocardiogram and/or stress test would change the ultimate outcome that she needs the surgery and further cardiovascular evaluation would be of limited benefit. Recommendation Anesthesia Recommendation Anesthesia recommendation: OPTIMIZED for anesthesia (Per cardiology visit on 2024 okay to proceed with surgery)
--- NOTE | 2024-10-13 16:55 | HP.PCM_ITS ---
History and Physical History and Physical Patient Name: Diane RodriguezsDOB: 1945 From: APOORVA CASANOVA PA-C DATE OF PRE-OPERATIVE EXAM: 10/12/2024 DATE OF SURGERY: 10/16/2024 SCHEDULED PROCEDURE: Robotic assisted left total knee arthroplasty HISTORY OF PRESENT ILLNESS: Patient is a 78 year old female that presents to the office for left knee pain. Patient was last seen in April 2024 by one of the physician assistants. She had a corticosteroid injection at that time. She reports it offered minimal relief. Patient reports significant exacerbation of her pain now limiting her activities of daily living. She reports most intense pain can be an 8 out of 10. She has to use a walker or cane for ambulation. She has problems with stability. She has previous tibia fracture and previous intramedullary tibial nail. She has been under my care for this for quite some time. She continues to take Tylenol on a regular basis and Advil both with minimal relief. REVIEW OF SYSTEMS: Review Of Systems: Constitutional: Denies anorexia, anxiety, change in appetite, fever, difficulty sleeping, weight change. Cardiovasular: Denies chest pain, heart murmur, irregular heartbeat and peripheral vascular disease. Respiratory: Denies asthma, cough, pneumonia, sleep apnea, shortness of breath, tuberculosis and wheezing. Gastrointestinal: Denies constipation, diarrhea, heartburn, nausea, rectal itching, bloody stools and vomiting. Genitourinary: . (F Genital Sx) Denies incontinence. Musculoskeletal: Reports pain, but denies leg swelling, trouble walking and weakness. Skin: Denies Raynaud's, history of shingles and tattoo. Neurological: Denies ambulatory dysfunction, dizziness, numbness/tingling and tremor. Psychiatric: Denies anxiety, depression, insomnia, mental illness and stress. Hematologic/Lymphatic: Denies anemia, bleeding/bruising tendency and past transfusion. Reviewed, no changes. PAST MEDICAL HISTORY: Advance Care Plan: Other Directive, MEDICAL POA Effective Date: 07/23/2023 Other Directive, LIVING WILL Effective Date: 07/23/2023 Past Medical History: Medical Problems: Arthritis, High Blood Pressure, Kidney Stones Cancer - THROMBOCYTHEMIA Thyroid Disease Accidents: Fracture - LT TIB LT Hip FX - (04/16/2014) FALL ON ICE Surgical Hx: LT Hip ORIF - (04/17/2014) OPAL @ [facility] LT Leg - (2008) Knee Replacement RT - (09/23/2022) SAW RT TKR ROBOTIC AT [facility] Anesthesia Complications: None Assistive Devices: Glasses, Walker Reviewed, no changes. 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 Personal Habits: Cigarette Use: Never.Smokeless Tobacco: Never Used Smokeless Tobacco.E-Cigarette Use: Never used.Alcohol: Denies use.Drug Use: Denies Use.Enjoy Exercising: Never Exercises. Reviewed, no changes. VITALS: Ht: 63 Wt: 190lb Wt k.184 BMI: 33.7 BP: 134/70 Pulse: 50 Resp: 14 T: 97.8 T: 36.6C Pain Level: 0/10 O2SatR: 97 ALLERGIES: Penicillin Contrast Dye Phenergan Promethazine HCL Tetanus Toxoids Red Dye 40 Meloxicam Celebrex MEDICATIONS: Levothyroxine Sodium 50 mcg 1 by mouth every day, Atenolol 100 mg 1 tab po daily, Losartan Potassium 100 mg 1 by mouth every day, Aspirin 81 Low Dose 81 mg 1 by mouth every day, Amlodipine Besylate 5 mg 1 by mouth every day, Vitamin D3 25 mcg (1000 Ut) 1 a day, Baclofen 10 mg take 1 tablet by mouth at bedtime if needed, Tylenol Extra Strength 500 mg 2 by mouth every 8 hours, Hydroxyurea 500 mg take 2 capsules by mouth once daily except on wednesdays and sundays PRE-OP EXAM: General appearance:NORMAL Other: Eyes: Conjunctivae and lids: NORMAL Pupils: ERR Ears, Nose, Mouth, and Throat: NORMAL Other: Inspection of lips, teeth and gums: NORMAL Other: Neck: Examination of neck: no masses noted. Respiratory: Assessment of respiratory effort: NORMAL Other: Auscultation of lungs: clear to auscultation no wheezes, rhonchi or rales. Cardiovascular: Auscultation of heart: regular rate and rhythm, no murmurs, gallops or rubs. Exam of carotid arteries: NORMAL Other: Gastrointestinal: Exam of abdomen: soft, nontender, nondistended bowel sounds present. Lymphatic: Palpation of nodes in neck: NORMAL Other: Palpation of nodes in Axillae: NORMAL Other: Neurological: see below Psychiatric: Orientation to time, place and person: NORMAL Other: Mood and affect: NORMAL Other: PHYSICAL EXAMINATION: Fixed valgus alignment 2 mm medial collateral laxity. 1 mm lateral collateral laxity. Tenderness palpation of the lateral joint line. Moderate effusion. Range of motion-20-1 15 IMAGING STUDIES: 4 views of the left knee with sunrise, lateral, and bilateral standing AP and tunnel views reviewed reveal valgus alignment and lateral joint space narrowing, subchondral sclerosis and osteophyte formation consistent with severe stage IV tricompartmental osteoarthritis. There are bony erosions in the lateral compartment. Previous tibial nail is appreciated. In the distal aspects of the radiograph he can see previous stable healed tibia fracture. On bilateral standing AP and tunnel films of the contralateral knee taken for comparison show stable well aligned well-fixed total knee replacement. IMPRESSION: Hypertension History of kidney stones Cancer?thrombocytopenia Thyroid disease Hyperlipidemia Vitamin D deficiency Posttraumatic osteoarthritis left knee Fracture left tibia Obesity PLAN: The surgeon did discuss and review all treatment options with the patient including surgical versus nonsurgical. At this time the patient does wish to proceed with the above-stated procedure. Potential risks benefits and complications of the procedure were discussed and reviewed with the patient including but not limited to , infection, nerve and blood vessel damage, persistent pain, numbness, tingling, paresthesias, blood clot, pulmonary embolism, in the requirement for possible further surgery. Patient expressed full understanding. Has no further questions for the doctor. Does agree to proceed with the above-stated procedure, and has signed the appropriate surgery consent form. DVT prophylaxis: Patient will be on aspirin 81 mg twice daily for 4 weeks postoperatively as well as wearing JUDE hose for 2 weeks postoperatively. Pain medications: Patient will be on Tylenol 1000 mg every 8 hours as well as oxycodone as needed. We will avoid anti-inflammatories in this patient as her GFR is less than 60. Patient will be on famotidine for 30 days postoperatively. Patient will be on Zofran as needed for nausea and vomiting. Patient will be on senna for postoperative constipation. ___ I have re-examined the patient. There are no clinical changes since date of exam. ___ See progress notes for changes. ___ Dictated on admission Date: Time: Signature:
[2024-10-16] VITALS (10 sets, daily range): BP systolic 106–149; BP diastolic 37–76; PULSE 50–74; RESP 16–18; TEMP 36.4–37.2; O2SAT 94–100; BMI 31.1
--- NOTE | 2024-10-16 10:50 | PRE.ANES_ITS ---
ASA Classification* ASA Classification ASA Classification: 2 Assessment & Plan Anesthesia* Anesthesia Assessment Anesthesia Assessment: Discussed sedation and/or anesthesia options, risks, benefits, and alternatives with patient/parents/legal guardian/POA. Questions invited. The patient/parents/legal guardian/POA seems to understand and agrees to proceed with anesthesia plan. Reviewed the physical assessment, medical history, allergy history and patient home medications list prior to surgery/procedure/anesthetic and documented any changes. Performed airway and anesthesia risk assessments. Anesthesia Type Anesthesia Type: Spinal and Block Anesthesia Focused Assessment* Airway Assessment Mouth opens: >3 cm Mallampati Score: II Labs Anesthesia Preop lab: CBC WBC 3.7 K/mm3 (4.4-11.0) L 10/11/24 14:18 10/11/24 RBC 3.26 M/mm3 (4.2-5.4) L 10/11/24 14:18 10/11/24 Hgb 12.1 g/dL (12.0-15.0) 10/11/24 14:18 10/11/24 Hct 36.1 % (37-47) L 10/11/24 14:18 10/11/24 Plt Count 244 K/mm3 (150-450) 10/11/24 14:18 10/11/24 CHEMISTRY Potassium 4.1 mmol/L (3.3-5.1) 10/11/24 14:18 10/11/24 Sodium 136 mmol/L (133-145) 10/11/24 14:18 10/11/24 Magnesium 2.3 mg/dL (1.5-2.2) H 07/31/24 14:22 07/31/24 BUN 15 mg/dL (4-19) 10/11/24 14:18 10/11/24 Creatinine 1.08 mg/dL (0.70-1.20) 10/11/24 14:18 10/11/24 Glucose 129 mg/dL (70-99) H 10/11/24 14:18 10/11/24 POC Glucose 110 mg/dL (74-106) H 09/23/22 06:53 09/23/22 TSH 1.470 uIU/mL (0.300-4.200) 07/31/24 14:22 07/20 05/16 COAG PT 12.6 SECONDS (11.7-14.9) 07/31/24 14:22 Pre-Assessment Diagnosis/Proposed Procedure Planned Operative Procedure(s): ROBOTIC ASSISTED LEFT TOTAL KNEE ARTHROPLASTY Anesthesia History 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 When Was Last Pacemaker Check QUESTION #4 FULL TEXT: You/Your Family Experience fever (hyperthermia) with Anesthesia Last Oral Intake Last Oral intake: Last Oral Intake NPO since Meds taken in AM with sips of water? Meds patient instructed to take am of surgery PONV PONV - tamping machine operator road forms: PONV - tamping machine operator road forms Female Yes 10/04/24 13:47 HX of Motion Sickness Yes 10/04/24 13:47 HX of N/V After Surgery No 10/04/24 13:47 Non-Smoker Yes 10/04/24 13:47 Duration of Surgery greater Yes 10/04/24 13:47 than 60 minutes Number of Risk Factors 4 10/04/24 13:47 PONV Score Severe Risk 10/04/24 13:47 Height & Weight Height & Weight: Anesthesia: Height & Weight Height 5 ft 5 in 10/11/24 15:05 Respiratory Assessment Respiratory Assessment - tamping machine operator road forms: Respiratory Tract Infection Hx - tamping machine operator road forms Hx Respiratory Tract Infection No 10/04/24 13:47 STOP Sleep Apnea STOP Sleep Apnea - tamping machine operator road forms: STOP Sleep Apnea - tamping machine operator road forms Hx Hypertension Yes: CONTROLLED WITH MED 10/04/24 13:47 Hx Sleep Apnea No 10/04/24 13:47 CPAP No 10/04/24 13:47 BIPAP No 10/04/24 13:47 Do you snore loudly (louder No 10/04/24 13:47 than talking or can be heard Do you often feel tired/ No 10/04/24 13:47 fatigued/ sleepy during daytime? Has anyone observed you stop No 10/04/24 13:47 breathing during sleep? STOP Results Negative 10/04/24 13:47 QUESTION #5 FULL TEXT : Do you snore loudly (louder than talking or can be heard through closed doors)? 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 Specify any problems Hx of Preganancy in last 3 No 10/04/24 13:47 Months Nurse Filling Out Transfusion DSCHRIBER 10/04/24 13:47 & Questions: Date: 10/04/24 10/04/24 13:47 Time: 13:47 10/04/24 13:47 Patient unable to answer at this time (ie. confused, unrespo /Reproduction History /Reproductive History - tamping machine operator road forms: /Reproductive Hx- tamping machine operator road forms Hx Now No 10/04/24 13:47 Gestational Age (in weeks): EDC: Hx Hx Para Hx Section SAB No 10/04/24 13:47 Active Medications Active Medications: Current Medications Generic Name Dose Route Start Last Admin Trade Name Freq PRN Reason Stop Dose Admin Lactated Ringer's 1,000 mls @ 125 mls/hr 10/16/24 07:30 IV 10/16/24 15:29 .Q8H KENDRA Insulin Human Lispro 1 - 6 unit 10/16/24 07:30 Insulin Lispro 100 Unit/Ml Insuln.Pen SC Q4H PRN PRN BG>/= 180, SEE PROTOCOL Protocol PFSH Medical History Cardiology follow-up encounter Wears glasses Post-menopausal Depression Anxiety Ambulates with cane Walker as ambulation aid Arthritis Migraine headache History of IBS Non-smoker History of edema History of pain when walking Thrombocythemia Hx of fracture of leg Fracture of left hip requiring operative repair Vitamin D deficiency Osteopenia Melanoma in situ Hypothyroidism Hyperlipidemia Hypertension Home Medications ?Medication ?Instructions ?Recorded ?Last Taken ?Type levothyroxine 50 mcg tablet 50 mcg PO DAILY thyroid 04/19/14 05:30 History (Levoxyl) losartan 100 mg tablet 100 mg PO DAILY bp 06/06/18 12/06/18 07:00 History 100 MG amlodipine 5 mg tablet 5 mg PO DAILY bp 07/21/18 History cholecalciferol (vitamin D3) 25 1,000 unit PO DAILY pravin michael 10/26/19 09/25/22 History mcg (1,000 unit) tablet atenolol 50 mg tablet 50 mg PO DAILY@0800 30 days #30 10/09/22 Unknown Rx tabs aspirin 81 mg chewable tablet 81 mg PO DAILY 09/20/24 Unknown History hydroxyurea 500 mg capsule 1,000 mg (2 x 500 mg) PO Unknown Rx MOTUTHFRSA #100 caps acetaminophen 500 mg tablet 1,000 mg PO BID PRN inflam mation 10/04/24 Unknown History Allergy/AdvReac Type Severity Reaction Status Date / Time promethazine HCl (From Allergy Severe Other Verified 10/11/24 15:04 Phenergan) Penicillins AdvReac Severe Swelling Verified 10/11/24 15:04 red dye AdvReac Severe Unknown Verified 10/11/24 15:04 Tetanus Vaccines and Toxoid AdvReac Intermediate NEEDS Verified 10/11/24 15:04 FOLLOW-UP Family History Father Rheumatoid arthritis Surgical History History of total right knee replacement Hx of right cataract extraction Hx of left cataract extraction History of breast lump removal History of hip surgery Social History household members: none housing: condominium Smoking Status: Never smoker second hand exposure: No alcohol intake: never substance use type: does not use justice/evangelical: Restoration seatbelt use: always do you feel safe at home: Yes Review of Systems (Anesthesia) ROS Narrative System reviewed and no additional complaints, except as documented.
[2024-10-16] MEDS: LR 1,000 ML - BOLUS PREOP 999 ML IV (11:01)
[2024-10-16] MEDS: Magnesium 1 GM over 15 mins IV (11:01)
--- NOTE | 2024-10-16 15:37 | RAD_ITS ---
PROCEDURE: KNEE 1 OR 2 VIEWS 10/16/2024 REASON FOR EXAM: ROBOTIC ASSISTED LEFT TOTAL KNEE ARTHROPLASTY WITH TIBIAL NAIL TECHNIQUE: Intraoperative fluoroscopic services provided for tibial nail. Radiation dose: Fluoroscopy: 21.6 seconds. 0.91 mGy COMPARISON: None FINDINGS: Intraoperative fluoroscopic services provided for intramedullary nailing of the tibia. RAD/Knee 1 or 2 Views IMPRESSION: Intraoperative fluoroscopic services provided for intramedullary nailing of the tibia. Reading Location: [facility]
[2024-10-16] MEDS: JPS (Morphine 10mg/ml) OPERA.SITE (17:13)
[2024-10-16] MEDS: TXA 2000mg in NS 100ml (Placed in Wound) OPERA.SITE (17:14)
--- NOTE | 2024-10-16 17:55 | PCM.OPRPT ---
Operative Report (Standard) Operative Information Date of Procedure: 10/16/24 Pre-Operative Diagnosis: Posttraumatic osteoarthritis left knee Post-Operative Diagnosis: Posttraumatic osteoarthritis left knee Surgery/Procedure Performed: Robotic assisted left total knee replacement Removal of left tibial nail. Removal of 4 interlocking screws. 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 [employer] Supervisor: Nela Wallace Tasks completed by respiratory care assistant: Other (See body of operative report) Additional executive assistant to general counsel?: No Type of Anesthesia: Spinal RN Documented Start/Stop Times: Operation Date: 10/16/24 12:30 Case Time Into Pre-Op 10/16/24 10:26 Out of Pre-Op 10/16/24 15:08 Anesthesia Start 10/16/24 15:12 Into Room 10/16/24 15:12 Procedure Start 10/16/24 15:46 Procedure End 10/16/24 18:31 Anesthesia End 10/16/24 18:33 Out of Room 10/16/24 18:33 Into Recovery 10/16/24 18:35 Out of Recovery 10/16/24 19:51 Procedure Start Time: 15:46 Procedure Stop Time: 18:31 Select all DRAINS/GRAFTS/IMPLANTS that apply: None Special Medications: Ancef Estimated Blood Loss: 200 mL Fluids Replaced: 1200 mL crystalloid Specimen collected: No Description of surgery: Implants used: 1. Rosanna size 4 triathlon total stabilized distal femoral component with 15 x 50 mm cemented stem 2. Rosanna size 4 press-fit universal tibial baseplate with 15 x 50 mm cemented stem 3. [place] X3 11 mm TS polyethylene 4. Rosanna X3 35 mm asymmetric patella Brief history operative indications: 79-year-old F with history of left tibial abiola and subsequent posttraumatic knee osteoarthritis with radiographic findings with loss of joint space, osteophyte formation and subchondral sclerosis. Failed conservative measures as mentioned in the H&P. Discussion of total knee arthroplasty as well as risk and benefits were discussed the patient including but not limited to blood loss, DVTs, PEs, neurovascular damage, general risk of anesthesia including loss of life, and stiffness or instability were discussed with patient. Patient demonstrated understanding and was able to sign informed consent. Procedure: On the date of procedure patient's left lower extremity was marked in the preoperative area. The patient was then taken back to the operating room where the patient was placed on the table in the supine position. All bony prominences were identified a well-padded. Anesthesia assumed control of the C-spine and airway and remained controlled throughout the remainder of the procedure. A tourniquet was placed on the left upper thigh and the leg was prepped in a sterile fashion. The surgeon then scrubbed at this time .Upon reentering the room left lower extremity was draped in a standard orthopedic fashion. A timeout was then called and everyone agreed upon the side, the site, the procedure to be performed, patient's identity and antibiotics given. Esmarch bandage was used to exsanguinate the extremity and the tourniquet was placed up to 250 mmHg with the knee in flexion. At this point the fluoroscopy machine was brought into the operative field fluoroscopy was used to localize the anterior to posterior distal interlocking screw. A skin incision was made the screw was palpated and using fluoroscopy we were able to engage the screw and remove it. We then directed our attention to the distal medial to lateral screw. A separate incision was made. Fluoroscopy was used to localize the screw and guide the placement of the incision. Once the screw was engaged it was removed and backed out. We then directed our attention proximally where we located one of the proximal medial to lateral screws with fluoroscopy. This helped localize our incision. A separate incision was made screw was palpated the screw head was engaged and screw was removed. A midline skin incision was made and sharp dissection was taken down through skin subcutaneous tissue and fat. The standard medial parapatellar incision was made and the patella was subluxed laterally. An Appropriate deep MCL release was done and the fat pad was resected. Our attention was then directed to the patella. The patella was everted and a flat resection was made. At this point the knee was flexed up and based on the area of the most proximal screw we extended the incision distally in order to go through the larger incision. We localized the screw. We then directed our attention to the anterior portion of the tibia the tibia could be minimally visualized. Some bone was removed from the proximal tibia. We then placed the extraction abiola into the tibia and after tightening the extraction abiola down remove the last interlocking screw through the distal extension of the incision previously made. Back slap was used to remove the abiola and the abiola was removed in its entirety. Our attention was then directed towards reconstruction of the knee. The knee was then flexed up in 2 femoral pins were placed inside the incision and 2 tibial pins were placed outside the incision in the medial tibia bicortically. Once this was completed the 2 checkpoints in the femur and tibia were placed. Knee was then flexed up and the bony landmarks were registered. Once this was completed knee was taken through range of motion and manually stressed allowing us to a plan for an appropriate tibial cut. The robotic arm was brought into the field sterilely and checkpoint and saw were registered. Based on the patient's deformity the tibial cut was made neutral to the tibial axis. At this time the tensioner was then placed in the joint and ligament tension was checked at 90 degrees and full extension. Based on the patient's ligamentous tension appropriate adjustments were made to the operative plan and ligament releases were done. Once we were happy with our operative plan with balanced flexion and extension gaps our attention was directed to the femur. The robot was brought into the field sterilely and registered. Posterior condylar cuts, anterior chamfer cuts and anterior cuts were appropriately made for a size 4 femur. When these were completed the saws were switched out in the distal femoral and posterior chamfer cuts were made. Protecting the soft tissue throughout this time. A size 5 tibial base plate was selected. the knee was flexed to 90 degrees and the soft tissues and posterior osteophytes were removed from the joint. 40 cc of the periarticular injection was injected into the posterior medial corner of the joint. The appropriate trials were then placed on the femur and tibia. A trial polyethylene was trialed to ensure proper balancing and stability of the knee. The appropriate tibial internal rotation was then marked with a bovie. Our attention was then directed to the patella. The lug holes were drilled and the patella trial was placed. Patellar tracking was checked and deemed appropriate. Once we completed trialing we did want to proceed with stemmed implants and a total stabilized polyethylene. Once we were happy lug holes were drilled for the femur and trial components were removed. The tibia was subluxed and pinned into place and the keel was punched and drilled appropriately. Boss reamer was used to ream for the tibial stem. Attention was then directed to the femur where the notch cut was made and deepened for the total stabilized femur and the canal was reamed with the boss reamer for the 50 x 15 mm stem. We then trialed the femur component to make sure that it fit appropriately similar to the trials and it did. Final components were verified and opened. The wound was copiously irrigated with normal saline. Tourniquet was let down hemostasis was obtained. Tourniquet was then placed up once more. When the cement was ready the components were cemented into place starting with the tibia then the femur, finally the patella was compressed into place. The trial poly component was placed and the knee was placed in full extension. Once the the implants were secured, the tracking, alignment and balance were verified and a size 11 mm TS polyethylene component was placed. Once the final components were placed a 3-minute dilute Betadine lavage was performed followed by an Irrisept lavage was performed and the wound was copiously irrigated with normal saline solution and the periarticular injection was given. The wound was closed in a layer elizabeth fashion using #1 vicryl interrupted sutures for the arthrotomy, 2-0 interrupted Vicryl suture for the subcuticular layer and leonid for final skin closure. A sterile compressive dressing was then placed. The patient was then awakened from anesthesia, transferred to the rsmoaks and transferred to the PACU for recovery. Post op plan DVT ppx: ASA 81mg BID, thigh high compression stockings Follow up: in office in 2 weeks for wound check PT: to start POD #0 at hospital, outpatient PT should be arranged. My physician executive assistant to general counsel was a vital part of this case, they was important because there was not another skilled set of hands available to their training and aptitude needed for safe and appropriate completion of this case. They were important in appropriate retraction during the case, and protection of soft tissues during bony cuts. In particular the experience and skill of this executive assistant to general counsel made for safe retraction and exposure during implantation of medical implants without damage to vital soft tissues or structures. His intimate knowledge of the case and my steps aided in safe and expedient completion of the procedure as well as appropriate position of the leg during the case. He was also vital in assisting with closure under my direct supervision. Due to the complexity of this case robotic arm was used to assist in the surgery to improve accuracy and clinical outcomes. Surgical Findings: Complete removal of all implants. Stage IV osteoarthritis. Poor bone quality therefore we used cemented stemmed implants. Chronic MCL laxity due to valgus chronic alignment therefore we did use TS implants despite a well stabilized knee. Complications Complications: No Admit VTE Documentation VTE Present on Admission: No VTE Mechan Device Prophylaxis: SCD's and Thigh High JUDE Hose VTE Pharm Prophylaxis ordered?: Yes
[2024-10-16] MEDS: LR 1,000 ML - BOLUS POSTOP 999 ML IV (18:35)
--- NOTE | 2024-10-16 18:49 | PCM.POST.ANE ---
Anesthesia: Postop Eval I Current Vital Signs Temperature: 97.6 F Pulse Rate: 50 Blood Pressure: 144/68 Respiratory Rate: 16 Pulse Ox: 99 Oxygen Delivery Method: Room Air Assessment Airway patent: Yes Spontaneous unlabored respirations: Yes Mental status: Awake nausea: No Vomiting: No Anesthesia Complication: No Fluid Hydration Crystalloid volume administer (ml): 1,200 Total IV fluid infused: 1,200 Progress Note Anesthesia document: Postop Eval 1 completed: Yes
--- NOTE | 2024-10-16 18:50 | RAD_ITS ---
PROCEDURE: LEFT KNEE 1 OR 2 VIEWS 10/16/2024 REASON FOR EXAM: TKA TECHNIQUE: LEFT KNEE 1 OR 2 VIEWS COMPARISON: Left lower extremity CT 08/01/2024 FINDINGS: Postoperative changes status post total cemented left knee arthroplasty. Hardware appears intact without evidence for loosening or failure, with good alignment. Diffuse qualitative osteopenia. Presumed postoperative generalized soft tissue swelling and scattered soft tissue gas about the knee. RAD/Knee 1 or 2 Views IMPRESSION: Status post total cemented left knee arthroplasty; intact hardware and expected postop changes. Reading Location: [id number]
--- NOTE | 2024-10-16 18:50 | PCM.POSTANE2 ---
Anesthesia Postop Eval I Sum Postop Eval Completion status Anesthesia document: Postop Eval 1 completed: Yes Anesthesia Postop Eval I Summary Anesthesia Postop Eval I Summary: Anesthesia Postop Eval I: Assessment Summary Airway patent Yes 10/16/24 18:50 Spontaneous unlabored Yes 10/16/24 18:50 respirations Mental status Awake 10/16/24 18:50 nausea No 10/16/24 18:50 Vomiting No 10/16/24 18:50 Anesthesia Postop Eval I: Fluid Summary Crystalloid volume administer 1,200 10/16/24 18:50 (ml) Colloids volume administered ( ml) Blood Product volume administered (ml) Total IV fluid infused 1,200 10/16/24 18:50 Anesthesia Postop Eval I: Summary Notes Anesthesia Complication No 10/16/24 18:50 Anesthesia Complication Comment: Post-operative progress note Anesthesia: Postop Eval II Evaluation Mental status: Awake Pain Level: 3 nausea: No Vomiting: No
--- NOTE | 2024-10-16 19:54 | PCM.CONS.GEN ---
Assessment & Plan Assessment/Plan (1) Status post total left knee replacement: PLAN: Plan Patient is an 79-year-old female who presented [facility] on 10/16/2024 for planned left total knee replacement. Medicine consulted postoperatively for medical management. 1. Left knee osteoarthritis ? Orthopedic surgery primary. S/p left total knee replacement with Dr. Machuca on 10/16. Tolerated procedure well, no intraoperative complications noted. Postoperative pain control and further management per orthopedics. Follow-up a.m. CBC and BMP. PT/OT/case management consulted. 2. Removal of left tibial nail and interlocking screws, history of tibial fracture with intramedullary nail placement ? Patient had removal of left tibial nail and 4 interlocking screws during procedure on 10/16 as well. Multiple small incision sites on middle part of anterior carpio noted. Did have some postoperative blood oozing noted so Steri-Strips were placed and bandages with Scott wrap were replaced. Monitor. 3. Hypertension ? Systolic BP in the 120s to 130s postoperatively. Continue home atenolol, amlodipine and losartan with hold parameters in place. 4. Myeloproliferative disorder ? Follows with oncology, last office visit on 10/11. Has positive JAK2 mutation with persistent thrombocytosis. However, this has been well-controlled on home hydroxyurea. CBC on 10/11 with platelet count 244, hemoglobin 12.1 (baseline). Follow-up a.m. CBC. Continue home hydroxyurea. Is typically on baby aspirin daily as well but will be on baby aspirin twice daily for DVT prophylaxis per orthopedics. 5. Hypothyroidism ? Continue home Synthroid. DVT prophylaxis: Baby aspirin twice daily per orthopedics Total clinical time spent by myself addressing the patient's medical issues, reviewing all the data, and collaborating with patient's care team: 35 minutes. HPI Consult Data Date of Consult: 10/16/24 HPI Narrative Reason for Consultation: Postoperative medical management HPI Narrative: BERNICE JUAN, is a 79 F who presented to [facility] on 10/16/2024 for planned left knee replacement. Medicine consulted postoperatively for medical management. Patient had left total knee replacement done with Dr. Machuca this afternoon. Tolerated procedure well, no intraoperative complications noted. Saw patient at bedside postoperatively. Patient was fatigued and somewhat somnolent appearing but otherwise was answering questions with short appropriate responses. She reported mild left knee pain currently. Denied left mid carpio pain. Noted that the IV pain medication that was given postoperatively to her was helpful for the pain. Denied any other pain or discomfort currently. [facility] Medical History Cardiology follow-up encounter Wears glasses Post-menopausal Depression Anxiety Ambulates with cane Walker as ambulation aid Arthritis Migraine headache History of IBS Non-smoker History of edema History of pain when walking Thrombocythemia Hx of fracture of leg Fracture of left hip requiring operative repair Vitamin D deficiency Osteopenia Melanoma in situ Hypothyroidism Hyperlipidemia Hypertension Home Medications ?Medication ?Instructions ?Recorded ?Last Taken ?Type levothyroxine 50 mcg tablet 50 mcg PO DAILY thyroid 08/04/13 10/16/24 History (Levoxyl) losartan 100 mg tablet 100 mg PO DAILY bp 06/06/18 10/16/24 History amlodipine 5 mg tablet 5 mg PO DAILY bp 07/21/18 10/16/24 History cholecalciferol (vitamin D3) 25 1,000 unit PO DAILY bones 10/26/19 10/15/24 History mcg (1,000 unit) tablet atenolol 50 mg tablet 50 mg PO DAILY@0800 30 days #30 10/09/22 10/16/24 Rx tabs aspirin 81 mg chewable tablet 81 mg PO DAILY 09/20/24 10/11/24 History hydroxyurea 500 mg capsule 1,000 mg (2 x 500 mg) PO 10/02/24 10/11/24 Rx MOTUTHFRSA #100 caps acetaminophen 500 mg tablet 1,000 mg PO BID PRN inflammation 10/04/24 10/15/24 History Allergy/AdvReac Type Severity Reaction Status Date / Time promethazine HCl (From Allergy Severe Other Verified 10/16/24 11:13 Phenergan) Penicillins AdvReac Severe Swelling Verified 10/16/24 11:13 red dye AdvReac Severe Unknown Verified 10/16/24 11:13 Tetanus Vaccines and Toxoid AdvReac Intermediate NEEDS Verified 10/16/24 11:13 FOLLOW-UP Family History Father Rheumatoid arthritis Surgical History History of total right knee replacement Hx of right cataract extraction Hx of left cataract extraction History of breast lump removal History of hip surgery Social History household members: none housing: condominium Smoking Status: Never smoker second hand exposure: No alcohol intake: never substance use type: does not use justice/buddhist: Worship seatbelt use: always do you feel safe at home: Yes ROS Constitutional Constitutional: Reports fatigue; Denies chills or fever(s) Eyes Eyes: Denies change in vision Cardiovascular Cardiovascular: Denies chest pain Respiratory/Chest Respiratory/Chest: Denies shortness of breath at rest Gastrointestinal Gastrointestinal: Denies abdominal pain Musculoskeletal Musculoskeletal: Reports joint pain; Denies myalgias Physical Exam Const alert, oriented x3 and no apparent distress Constitutional Narrative: Elderly female, fatigued and somewhat lethargic appearing but otherwise sitting back comfortably in bed, answering questions with short appropriate responses, in no acute distress. General Appearance: cooperative and comfortable Orientation / Consciousness: lethargic HEENT normocephalic, head/scalp atraumatic, hearing grossly normal bilaterally, nasal mucous membranes and turbinates normal and moist oral mucous membranes Eyes PERRL, EOMs intact bilaterally and conjunctivae normal Neck full ROM Chest inspection of chest normal Resp normal respiratory effort, normal air movement, no use of accessory muscles and clear to auscultation bilaterally Cardio regular rate, regular rhythm, no murmurs and peripheral pulses 2+ throughout GI normal to inspection, nondistended, normoactive bowel sounds, soft to palpation, non-tender and non-distended Back/Spine normal ROM Extremity Extremity Narrative: Left knee with dressing and ice pack in place. Left anterior mid carpio area with mild blood oozing from incision sites noted. Neuro moves all extremities and no focal motor deficits Psych mental status grossly normal Lab / Micro Data 07/31/24 14:22 Labs: Laboratory Results - last 24 hr 10/16/24 11:05: POC Glucose 113 H Imaging Radiology Impression Knee X-Ray 10/16/24 18:50 IMPRESSION: Status post total cemented left knee arthroplasty; intact hardware and expected postop changes. Reading Location: [id number] Charges/Coding Visit Charges Inpatient E&M: 48249 Subs Hosp L2
[2024-10-16] MEDS: Cefazolin 1 GM/50 ML BAG IV (21:14)
[2024-10-16] MEDS: 0.9% Normal Saline (250mL Bag) 250 ML 15 ML IV (21:14)
[2024-10-16] MEDS: 0.9% Saline Lock 10 ML Syringe IV (21:15)
--- OUTSIDE RECORDS SUMMARY | 2024-10-16 23:25 | XMS RPT_ITS | CCD ---
Author Organization [facility] Care Team Providers Care Legislative Director Name Role Phone Dr. Dago Emery Chi Primary Care Provider Rupert, Dr. Dago Nicole Referring Provider Dr. Umang Pate Attending Provider 1([facility])[phone] Rupert, Dr. Dago Nicole Primary Care Provider 1([facility])[phone] Rupert, Dr. Dago Nicole Referring Provider 1([facility])[phone] Peg KNOCKOUT MAN, KNOCKOUT MAN-C Carolyn Attending Provider 1([facility] )[phone] Rupert, Dr. Dago Nicole Primary Care Provider 1([facility])[phone] Rupert, Dr. Dago Nicole Referring Provider 1([facility])[phone] Umang Pate Attending Provider Rupert COON, Dr. Dago Nicole Primary Care Provider 1([facility] )[phone] Rupert COON, Dr. Dago Nicole Referring Provider 1([facility])[phone] Peg KNOCKOUT MAN-C, Carolyn Attending Provider 1([facility])[phone] Dr. Umang Pate MD Attending Provider Rupert COON, Dr. Dago Nicole Attending Provider 1([facility])[phone] Dr. Omero Armas MD Attending Provider Herlinda COON, Dr. Heck Attending Provider Dago Emery Chi Referring Unavailable Rupert, Dago Chi Primary Care Unavailable Umang Pate Attending Unavailable Saulo Bullock Consulting Unavailable Geo Rodriguez Admitting Unavailable Geo Rodriguez Referring Unavailable Rupert, Dago Chi Primary Care Unavailable Geo Rodriguez Attending Unavailable See Valente Consulting Unavailable Rupert, Dago Chi Primary Care Unavailable Sven, Geo Referring Unavailable Geo Rodriguez Attending Unavailable Rupert, Dago Chi Primary Care Unavailable Rupert, Dago Chi Attending Unavailable Rupert, Dago Chi Primary Care Unavailable Rupert, Dago Chi Referring Unavailable Rupert, Dago Chi Attending Unavailable Rupert, Dago Chi Primary Care Unavailable Rupert, Dago Chi Referring Unavailable Rupert, Dago Chi Attending Unavailable Rupert, Dago Chi Referring Unavailable Rupert, Dago Chi Primary Care Unavailable Peg KNOCKOUT MAN, Carolyn Attending Unavailable Rupert, Dago Chi Primary Care Unavailable Rupert, Dago Chi Referring Unavailable Omero Armas Attending Unavailable Saulo Bullock Attending Unavailable Geo Rodriguez Consulting Unavailable Rupert, Dago Chi Referring Unavailable Rupert, Dago Chi Primary Care Unavailable Umang Pate Attending Unavailable Rupert, Dago Chi Referring Unavailable Rupert, Dago Chi Primary Care Unavailable Umang Pate Attending Unavailable Rupert, Dago Chi Referring Unavailable Rupert, Dago Chi Primary Care Unavailable Peg KNOCKOUT MAN, Carolyn Attending Unavailable Rupert, Dago Chi Primary Care Unavailable Rupert, Dago Chi Referring Unavailable Omero Armas Attending Unavailable Allergies Allergy Classification Reported Allergen(s) Allergy Type Date of Onset Reaction(s) Facility (10 sources) Contrast media; Translations: [red dye] Propensity to adverse reactions 2 Unknown [facility] Comment on above: mouth to droop (9 sources) Penicillins Propensity to adverse reactions 2 Swelling [facility] (10 sources) Promethazine; Translations: [promethazine HCl] Drug Allergy 2 Other [facility] Comment on above: david devi (zi ng) (9 sources) Tetanus Vaccines and Toxoid Propensity to adverse reactions 2 NEEDS FOLLOW-UP [facility] (1 source) Penicillins Drug allergy (disorder) 5 [facility] (1 source) Tetanus Vaccines and Toxoid Drug allergy (disorder) 5 [facility] Medications Current Medications Medication Drug Class(es) Dates Sig (Normalized) Sig (Original) acetaminophen 500 mg oral tablet (6 sources) Start: 10-04-2024 Acetaminophen 500 mg Tablet Active 1000 mg PO TWICE A DAY as needed for inflammation October 04, 2024 12:00am Do not take more than 3000 mg Tylenol in a 24-hour period. Start: 09-25-2022 End: 10-04-2024 Acetaminophen 500 mg Tablet Discontinued 1000 mg PO THREE TIMES A DAY 84 14 0 September 25, 2022 12:00am October 04, 2024 1:46pm inflammation Do not take more than 3000 mg Tylenol in a 24-hour period. Start: 09-25-2022 take 3000 mg by mout h three times daily Acetaminophen Active 1000 MG PO THREE TIMES A DAY 84 14 September 24, 2022 11:00pm Do not take more than 3000 mg Tylenol in a 24-hour period. amLODIPine 5 mg oral tablet (18 sources) Dihydropyridine Calcium Channel Elizabeth Start: 07-21-2018 take 1 tablet by mouth once daily Amlodipine 5 MG tablet Active 5 mg PO DAILY July 21, 2018 12:00am bp Start: 04-19-2014 End: 05-07-2014 take 1 tablet by mouth once daily Amlodipine 5 MG tablet Discontinued 5 mg PO DAILY 1 April 19, 2014 1:00am May 07, 2014 12:05pm aspirin 81 mg chewable tablet (20 sources) Platelet Aggregation Inhibitor, Nonsteroidal Anti-inflammatory Drug Start: 09-20-2024 take 1 tablet by mouth once daily Aspirin 81 mg tablet,chewable Active 81 mg PO DAILY September 20, 2024 2:31pm Start: 09-25-2022 End: 09-20-2024 take 1 tablet by mouth twice daily Aspirin 81 mg Tablet,Chewable Discontinued 81 mg PO BID@08 14 7 0 October 09, 2022 12:00am September 20, 2024 2:33pm Start: 11-04-2021 End: 09-25-2022 take 1 tablet by mouth every other day Aspirin 81 mg tablet,delayed release (DR/EC) Discontinued 81 mg PO .QOD November 04, 2021 1:58pm September 25, 2022 6:21am Start: 07-21-2018 End: 11-04-2021 take 1 tablet by mouth once daily Aspirin 81 MG tablet Discontinued 81 mg PO DAILY@0800 July 21, 2018 12:00am November 04, 2021 1:59pm atenolol 50 mg oral tablet (14 sources) beta-Adrenergic Elizabeth Start: 10-09-2022 take 1 tablet by mouth once daily Atenolol 50 mg Tablet Active 50 mg PO DAILY@0800 30 30 0 October 09, 2022 12:00am Start: 09-25-2022 End: 10-09-2022 take 1 tablet by mouth every twenty-four hours Atenolol 100 mg tablet Discontinued 100 mg PO Q24H September 25, 2022 12:00am October 09, 2022 3:33pm bp Start: 04-17-2014 take 100 mg by mouth once reji y Atenolol Active 100 MG PO DAILY April 17, 2014 1:00am cholecalciferol 0.025 mg oral tablet (9 sources) Vitamin D Start: 10-26-2019 take 1 tablet by mouth once daily Cholecalciferol (Vitamin D3) 1,000 UNIT tablet Active 1000 U PO DAILY October 26, 2019 12:00am bones levothyroxine sodium 0.05 mg oral tablet (9 sources) l-Thyroxine Start: 08-04-2013 take 1 tablet by mouth once daily Levothyroxine (Levoxyl) 50 MCG tablet Active 50 ug PO DAILY August 04, 2013 12:00am thyroid losartan potassium 100 mg oral tablet (18 sources) Angiotensin 2 Receptor Elizabeth Start: 06-06-2018 take 1 tablet by mouth once daily Losartan 100 MG tablet Active 100 mg PO DAILY June 06, 2018 12:00am bp Start: 08-04-2013 End: 04-19-2014 take 1 tablet by mouth once daily Losartan 100 MG tablet Discontinued 100 mg PO DAILY August 04, 2013 12:00am April 19, 2014 3:45pm Completed/Discontinued Medications Medication Drug Class(es) Dates Sig (Normalized) Sig (Original) acetaminophen 325 mg / HYDROcodone bitartrate 5 mg oral tablet (9 sources) Opioid Agonist Start: 04-19-2014 End: 05-07-2014 Hydrocodone-Acetami nophen 1 TABLET tablet Discontinued 1 - 2 {tbl} PO EVERY 4 HOURS NEEDED as needed for Mild-moderate pain (scale 1-5) 60 0 April 19, 2014 3:44pm May 07, 2014 12:05pm Start: 04-19-2014 End: 05-07-2014 take 1 tablet by mouth every four hours as needed Hydrocodone-Acetaminophen Discontinued 1 - 2 TABLET PO EVERY 4 HOURS NEEDED 60 April 19, 2014 2:44pm May 07, 2014 11:05am ALPRAZolam 0.5 mg oral tablet (9 sources) Benzodiazepine Start: 02-14-2014 End: 05-07-2014 take 1 tablet by mouth three times daily as needed for anxiety Alprazolam 0.5 MG tablet Discontinued 0.5 mg PO THREE TIMES A DAY as needed for Anxiety 30 0 February 14, 2014 1:42pm May 07, 2014 12:05pm baclofen 10 mg oral tablet (4 sources) gamma-Aminobutyric Acid-ergic Agonist Start: 05-05-2023 End: 07-10-2024 take 1 tablet by mouth at bedtime Baclofen 10 mg tablet Discontinued 10 mg PO AT BEDTIME May 05, 2023 1:00am July 10, 2024 1:44pm docusate sodium 50 mg / sennosides, detention 8.6 mg oral tablet (10 sources) Start: 09-25-2022 End: 07-31-2024 Sennosides-Docusate Sodium (Stool Softener-Stimulant Laxat) 8.6-50 mg Tablet Discontinued 2 {tbl} PO BID@0800,2000 120 30 0 October 09, 2022 12:00am July 31, 2024 11:34am doxycycline monohydrate 100 mg oral capsule (5 sources) Tetracycline-class Drug Start: 09-25-2022 End: 10-09-2022 take 1 capsule by mouth twice daily Doxycycline Monohydrate 100 mg Capsule Discontinued 100 mg PO TWICE A DAY 28 14 0 September 25, 2022 12:00am October 09, 2022 3:33pm Antibiotic Take doxycycline for 2 weeks postoperatively famotidine 20 mg oral tablet (5 sources) Histamine-2 Receptor Antagonist Start: 09-25-2022 End: 07-31-2024 take 1 tablet by mouth once daily Famotidine 20 mg Tablet Discontinued 20 mg PO DAILY 0 0 September 25, 2022 12:00am July 31, 2024 11:32am reflux Take for 4 weeks postoperatively while on aspirin and meloxicam hydroxyurea 500 mg oral capsule (20 sources) Antimetabolite Start: 06-20-2024 End: 07-31-2024 take 2 capsules by mouth once daily Hydroxyurea 500 mg capsule Discontinued 1000 mg PO .COMPLEX 120 0 June 27, 2024 5:07pm July 31, 2024 11:33am Essential thrombocythemia Essential (hemorrhagic) thrombocythemia 1,000 mg orally; Daily except for Sundays and Wednesdays Start: 05-07-2021 End: 10-02-2024 take 1 capsule by mouth once daily Hydroxyurea 500 mg capsule Discontinued 1000 mg PO DAILY 120 0 August 22, 2024 11:18am September 20, 2024 2:33pm Start: 06-24-2020 End: 05-07-2021 take 2 tablets by mouth once daily Hydroxyurea 500 mg capsule Discontinued 1000 mg PO DAILY 120 90 0 February 06, 2021 4:31pm May 06, 2021 1:00am May 07, 2021 1:03am Essential thrombocythemia Essential (hemorrhagic) thrombocythemia Take 1000 mg (2 tablets) by mouth on Mondays, Tuesdays, , Fridays and Saturdays. Start: 06-24-2020 End: 09-03-2022 take 1 tablet by mouth once daily Hydroxyurea Discontinued 1000 MG PO DAILY 120 90 February 06, 2021 3:31pm May 07, 2021 12:03am Take 1000 mg (2 tablets) by mouth on Mondays, Tuesdays, , Fridays and Saturdays. Start: 07-18-2018 End: 08-28-2019 take 2 capsules by mouth once daily Hydroxyurea 500 MG capsule Discontinued 500 mg PO MOTUTHFRSA December 02, 2018 1:48pm August 28, 2019 9:38am 1000 MG PO DAILY ON MON, TUE, THUR, FRI & SAT. NO MEDICATION ON WED & SUN. Start: 07-18-2018 End: 08-28-2019 take 1000 mg by mouth once daily Hydroxyurea Discontinued 500 MG PO MOTUTHFRSA December 02, 2018 12:48pm August 28, 2019 8:38am 1000 MG PO DAILY ON MON, TUE, THUR, FRI & SAT. NO MEDICATION ON WED & SUN. meloxicam 7.5 mg oral tablet (5 sources) Nonsteroidal Anti-inflammatory Drug Start: 09-25-2022 End: 07-10-2024 take 1 tablet by mouth twice daily Meloxicam 7.5 mg Tablet Discontinued 7.5 mg PO TWICE A DAY 0 30 0 September 25, 2022 12:00am July 10, 2024 1:44pm inflammation Do not take any other nonsteroidal anti-inflammatories while using meloxicam/Mobic. ondansetron 4 mg disintegrating oral tablet (5 sources) Serotonin-3 Receptor Antagonist Start: 10-09-2022 End: 07-31-2024 take 2 tablets by mouth every eight hours as needed for nausea Ondansetron 4 mg Tablet,Disintegrating Discontinued 8 mg PO EVERY 8 HOURS NEEDED as needed for NAUSEA 90 30 0 October 09, 2022 12:00am July 31, 2024 11:33am Start: 10-09-2022 take 8 mg by mouth e very eight hours as needed Ondansetron Active 8 MG PO EVERY 8 HOURS NEEDED 90 30 October 08, 2022 11:00pm oxyCODONE hydrochloride 5 mg oral tablet (10 sources) Opioid Agonist Start: 09-25-2022 End: 05-05-2023 take 1 tablet by mouth every four hours as needed for pain Oxycodone 5 mg Tablet Discontinued 5 mg PO EVERY 4 HOURS NEEDED as needed for Pain Score 6-10 42 7 0 October 09, 2022 May 05, 2023 2:50pm Fracture of left hip requiring operative repair rivaroxaban 10 mg oral tablet (9 sources) Factor Xa Inhibitor Start: 04-19-2014 End: 05-07-2014 take 1 tablet by mouth once daily Rivaroxaban (Xarelto) 10 MG tablet Discontinued 10 mg PO DAILY@0600 1 0 April 19, 2014 1:00am May 07, 2014 12:04pm Problems Problem Classification Problem Date Documented Date Episodic/Chronic Administrative/socia l admission (18 sources) Education and/or schooling finding; Translations: [Problems related to education and literacy, unspecified] Episodic Anxiety disorders (9 sources) Anxiety; Translations: [Anxiety disorder, unspecified] 09-01-2018 Chronic Diabetes mellitus with complications (1 source) Type 2 diabetes mellitus with hyperglycemia; Translations: [Type 2 diabetes mellitus with hyperglycemia] Onset: 5 Chronic Diseases of white blood cells (18 sources) Leukocytosis; Translations: [Elevated white blood cell count, unspecified] Chronic Disorders of lipid metabolism (11 sources) Hyperlipidemia; Translations: [Hyperlipidemia, unspecified] 09-01-2018 Chronic E Codes: Fall (9 sources) Fall; Translations: [Unspecified fall, initial encounter] 09-01-2018 Episodic Essential hypertension (12 sources) Hypertensive disorder; Translations: [Essential (primary) hypertension] Onset: 4 09-01-2018 Chronic Fracture of neck of femur (hip) (9 sources) Fracture of bone of hip region; Translations: [Fracture of unspecified part of neck of left femur, initial encounter for closed fracture] 09-01-2018 Episodic Malaise and fatigue (6 sources) Asthenia; Translations: [Other malaise] 10-22-2022 Episodic Neoplasms of unspecified nature or uncertain behavior (20 sources) Essential thrombocythemia; Translations: [Essential (hemorrhagic) thrombocythemia] Onset: 5 Chronic Comment on above: Britton 2+ Neoplasms of unspecified nature or uncertain behavior (20 sources) Myeloproliferative disorder; Translations: [Chronic myeloproliferative disease] Onset: 5 Episodic Nutritional deficiencies (6 sources) Vitamin D deficiency; Translations: [Vitamin D deficiency, unspecified] Onset: 5 10-22-2022 Chronic Comment on above: ON SUPPLEMENT Osteoarthritis (1 source) Unilateral primary osteoarthritis, left knee; Translations: [Unilateral primary osteoarthritis, left knee] Onset: 5 Chronic Other connective tissue disease (5 sources) History of total knee arthroplasty; Translations: [Presence of right artificial knee joint] 10-22-2022 Chronic Other connective tissue disease (1 source) Presence of right artificial knee joint; Translations: [Knee joint replacement] 10-14-2022 Chronic Other connective tissue disease (1 source) Presence of left artificial knee joint; Translations: [Presence of left artificial knee joint] Onset: 5 Chronic Other hematologic conditions (13 sources) Erythrocytosis; Translations: [Secondary polycythemia] 09-01-2018 Episodic Other hematologic conditions (5 sources) Secondary polycythemia; Translations: [Polycythemia, secondary] Episodic Other nutritional; endocrine; and metabolic disorders (5 sources) Body mass index 30+ - obesity; Translations: [Body mass index (BMI) 33.0-33.9, adult] 10-22-2022 Chronic Other nutritional; endocrine; and metabolic disorders (1 source) Body mass index (BMI) 33.0-33.9, adult; Translations: [Body Mass Index 33.0-33.9, adult] 10-14-2022 Chronic Other screening for suspected conditions (not mental disorders or infectious disease) (2 sources) Electrocardiogram abnormal; Translations: [Abnormal electrocardiogram [ECG] [EKG]] 09-20-2024 Episodic Thyroid disorders (10 sources) Hypothyroidism; Translations: [Hypothyroidism, unspecified] 09-01-2018 Chronic Results Test Name Value Interpretation Reference Range Facility Bedside Glucoseon 10-16-2024 FINGERSTICK GLU 113 mg/dL High 74-106 [facility] Comment on above: Result Comment: TRACEY SALDAÑA OF PATIENT CARE PER NURSING PROTOCOL Performed By: #### L 501.080 ####[facility] [id number] [place], [address] Consultation - Hospitaliston 10-16-2024 Consultation - Hospitalist [facility] Medical Records Department [address] [place] [address] Consultation - Hospitalist 10/16/241953 MR#: [id number] Acct: [id number] Name: BERNICE JUAN Rep #: [id number] : 1945 79 From: Saulo Bullock DO PCP: Dr. Dago Emery MD Status:ADM IN Location: [place] [address] Assessment Plan Assessment/Plan (1) Status post total left knee replacement: PLAN: Plan Patient is an 79-year-old female who presented [facility] on 10/16/2024 for planned left total knee replacement. Medicine consulted postoperatively for medical management. 1. Left knee osteoarthritis ??? Orthopedic surgery primary. S/p left total knee replacement with Dr. Rodriguez on 10/16. Tolerated procedure well, no intraoperative complications noted. Postoperative pain control and further management per orthopedics. Follow-up a.m. CBC and BMP. PT/OT/case management consulted. 2. Removal of left tibial nail and interlocking screws, history of tibial fracture with intramedullary nail placement ??? Patient had removal of left tibial nail and 4 interlocking screws during procedure on 10/16 as well. Multiple small incision sites on middle part of anterior carpio noted. Did have some postoperative blood oozing noted so Steri-Strips were placed and bandages with Scott wrap were replaced. Monitor. 3. Hypertension ??? Systolic BP in the 120s to 130s postoperatively. Continue home atenolol, amlodipine and losartan with hold parameters in place. 4. Myeloproliferative disorder ??? Follows with oncology, last office visit on 10/11. Has positive JAK2 mutation with persistent thrombocytosis. However, this has been well-controlled on home hydroxyurea. CBC on 10/11 with platelet count 244, hemoglobin 12.1 (baseline). Follow-up a.m. CBC. Continue home hydroxyurea. Is typically on baby aspirin daily as well but will be on baby aspirin twice daily for DVT prophylaxis per orthopedics. 5. Hypothyroidism ??? Continue home Synthroid. DVT prophylaxis: Baby aspirin twice daily per orthopedics Total clinical time spent by myself addressing the patient's medical issues, reviewing all the data, and collaborating with patient's care team: 35 minutes. HPI Consult Data Date of Consult: 10/16/24 HPI Narrative Reason for Consultation: Postoperative medical management HPI Narrative: BERNICE JUAN, is a 79 F who presented to [facility] on 10/16/2024 for planned left knee replacement. Medicine consulted postoperatively for medical management. Patient had left total knee replacement done with Dr. Rodriguez this afternoon. Tolerated procedure well, no intraoperative complications noted. Saw patient at bedside postoperatively. Patient was fatigued and somewhat somnolent appearing but otherwise was answering questions with short appropriate responses. She reported mild left knee pain currently. Denied left mid carpio pain. Noted that the IV pain medication that was given postoperatively to her was helpful for the pain. Denied any other pain or discomfort currently. [facility] Medical History Cardiology follow-up encounter Wears glasses Post-menopausal Depression Anxiety Ambulates with cane Walker as ambulation aid Arthritis Migraine headache History of IBS Non-smoker History of edema History of pain when walking Thrombocythemia Hx of fracture of leg Fracture of left hip requiring operative repair Vitamin D deficiency Osteopenia Melanoma in situ Hypothyroidism Hyperlipidemia Hypertension Home Medications ???Medication ???Instructions ???Recorded ???Last Taken ???Type levothyroxine 50 mcg tablet 50 mcg PO DAILY thyroid 08/04/13 0 10/16/24 History (Levoxyl) losartan 100 mg tablet 100 mg PO DAILY bp 06/06/18 History amlodipine 5 mg tablet 5 mg PO DAILY bp 07/21/18 10/16/24 History cholecalciferol (vitamin D3) 25 1,000 unit PO DAILY bones 10/26/19 10/15/24 History mcg (1,000 unit) tablet atenolol 50 mg tablet 50 mg PO DAILY@0800 30 days #30 10/16/24 Rx tabs aspirin 81 mg chewable tablet 81 mg PO DAILY 09/20/24 10/11/24 H istory hydroxyurea 500 mg capsule 1,000 mg (2 x 500 mg) PO 10/02/24 10/11/24 Rx MOTUTHFRSA #100 caps acetaminophen 500 mg tablet 1,000 mg PO BID PRN inflammation 0 10/04/24 10/15/24 History Allergy/AdvReac Type Severity Reaction Status Date / Time promethazine HCl (From Allergy Severe Other Verified 10/16/24 11:13 Phenergan) Penicillins AdvReac Severe Swelling Verified 10/16/24 11:13 red dye AdvReac Severe Unknown Verified 10/16/24 11:13 Tetanus Vaccines and Toxoid AdvReac Intermediate NEEDS Verified 10/16/24 11:13 FOLLOW-UP Family History Father Rheumatoid arthritis Surgical History (more content not included)... Normal [facility] Knee 1 or 2 Viewson 10-17-19 25 Knee 1 or 2 Views [facility] Imaging Services [facility] [place] [address] Knee 1 or 2 Views MR#: [id number] Acct: [id number] Name: BERNICE JUAN Rep #: [id number] : 1945 F 79 From: Smith Montes MD PCP: Dr. Dago Emery MD Status: ADM IN Study: Knee 1 or 2 Views Date of Exam: 10/16/24 Exam# [id number] Ordering Dr: Geo Rodriguez MD PROCEDURE: LEFT KNEE 1 OR 2 VIEWS 10/16/2024 REASON FOR EXAM: TKA TECHNIQUE: LEFT KNEE 1 OR 2 VIEWS COMPARISON: Left lower extremity CT 08/01/2024 FINDINGS: Postoperative changes status post total cemented left knee arthroplasty. Hardware appears intact without evidence for loosening or failure, with good alignment. Diffuse qualitative osteopenia. Presumed postoperative generalized soft tissue swelling and scattered soft tissue gas about the knee. RAD/Knee 1 or 2 Views IMPRESSION: Status post total cemented left knee arthroplasty; intact hardware and expected postop changes. Reading Location: [id number] CC: Dr. Geo Rodriguez MD; Dr. Dago Emery MD Promotional Representative: Signed [facility] MR/POSTOP.ANEon 10-16-2024 MR/POSTOP.ANE [facility] Medical Records Department [address] [place] [address] Anesthesia Postop Eval I 10/16/24 1849 MR#: [id number] Acct: [id number] Name: BERNICE JUAN Rep #: [id number] : 1945 79 From: Ki Cabrera MD PCP: Dr. Dago Emery MD Status:ADM IN Y Race: C Location: [place] [address] Anesthesia: Postop Eval I Current Vital Signs Temperature: 97.6 F Pulse Rate: 50 Blood Pressure: 144/68 Respiratory Rate: 16 Pulse Ox: 99 Oxygen Delivery Method: Room Air Assessment Airway patent: Yes Spontaneous unlabored respirations: Yes Mental status: Awake nausea: No Vomiting: No Anesthesia Complication: No Fluid Hydration Crystalloid volume administer (ml): 1,200 Total IV fluid infused: 1,200 Progress Note Anesthesia document: Postop Eval 1 completed: Yes 10/16/241849 Date iK Cabrera MD Cosigner Signature: Date CC: Signed [facility] [id number] 10-16-2024 MR/POSTOPAN2 [facility] Medical Records Department [address] [place] [address] Anesthesia Postop Eval II 10/16/241849 MR#: [id number] Acct: [id number] Name: BERNICE JUAN Rep #: [id number] : 1945 79 From: Ki Cabrera MD PCP: Dr. Dago Emery MD Status:ADM IN Y Race: C Location: LA3 [id number] Anesthesia Postop Eval I Sum Postop Eval Completion status Anesthesia document: Postop Eval 1 completed: Yes Anesthesia Postop Eval I Summary Anesthesia Postop Eval I Summary: Anesthesia Postop Eval I: Assessment Summary Airway patent Yes 10/16/24 18:50 Spontaneous unlabored Yes 10/16/24 18:50 respirations Mental status Awake 10/16/24 18:50 nausea No 10/16/24 18:50 Vomiting No 10/16/24 18:50 Anesthesia Postop Eval I: Fluid Summary Crystalloid volume administer 1,200 10/16/24 18:50 (ml) Colloids volume administered ( ml) Blood Product volume administered (ml) Total IV fluid infused 1,200 10/16/24 18:50 Anesthesia Postop Eval I: Summary Notes Anesthesia Complication No 10/16/24 18:50 Anesthesia Complication Comment: Post-operative progress note Anesthesia: Postop Eval II Evaluation Mental status: Awake Pain Level: 3 nausea: No Vomiting: No 10/16/24 1850 Date Ki Cabrera MD Cosigner Signature: Date CC: Signed Normal [facility] MRSA/SAID NASAL SCREENon MRSA+SAID SCRN Negative Normal [facility] Comment on above: Performed By: #### L 506.1001, L300.2880, L500.9830, L300.3900 #### [facility] [address] [place], [place], [id number] Absolute lymphocyte countOrd ered By: Carolyn Ruvalcaba on 10-11-2024 Lymphocytes Auto (Unsp spec) [#/Vol] 1.13 10*3/uL 0.83-4.51 [facility] Absolute neutrophil countOrd ered By: Carolyn Ruvalcaba on 10-11-2024 Neutrophils (Bld) [#/Vol] 2.1 10*3/uL 2.0-7.7 [facility] Anion gap in Serum or Plasma Ordered By: Carolyn Ruvalcaba on 10-11-2024 Anion gap [Moles/Vol] 13 mmol/L 5- [facility] Automated lymphocyte count a s percentage of total leukocytesOrdered By: Carolyn Ruvalcaba on 10-11-2024 Lymphocytes/100 WBC Auto (Unsp spec) 30.5 % - [facility] BUN/creatinine ratioOrdered By: Carolyn Ruvalcaba on 10-11-2024 Urea nitrogen/Creatinine [Mass ratio] 14.2 mg/mg 10- [facility] Basophil percentageOrdered B y: Carolyn Ruvalcaba on 10-11-2024 Basophils/100 WBC (Bld) 0.3 % 0-1 [facility] Bilirubin, totalOrdered By: Carolyn Ruvalcaba on 10-11-2024 Bilirubin [Mass/Vol] 0.40 mg/dL 0.00-1.30 [facility] CBC W/Diff, Automatedon 09-20 Anisocytosis Ql (Bld) 1+ Normal [facility] Comment on above: Performed By: #### L 100.0100, L500.4050 ####[facility] [id number] [place], [address] POLYCHROMASIA 1+ Normal [facility] Comment on above: Performed By: #### L 100.0100, L500.4050 ####[facility] [id number] [place], [address] PLT EST ADEQUATE Normal ADEQ [facility] Comment on above: Performed By: #### L 100.0100, L500.4050 ####[facility] [id number] [place], [address] SMEAR COMMENT SCANNED Normal [facility] Comment on above: Performed By: #### L 100.0100, L500.4050 ####[facility] [id number] [place], [address] Carbon dioxide, total [Moles /volume] in Central venous bloodOrdered By: Carolyn Peg on 10-11-2024 CO2 [Moles/Vol] 21.4 mmol/L 21.0-32.0 [facility] Chloride assayOrdered By: Ty ra Ruvalcaba on 10-11-2024 Chloride [Moles/Vol] 102 mmol/L 98-108 [facility] Comprehensive Metabolic Prof ilon 10-11-2024 Albumin [Mass/Vol] 4.0 g/dL Normal 3.4-4.8 [facility] Comment on above: Order Comment: CC: C MP CBCD TO DR RODRIGUEZ Performed By: #### L 506.1001, L300.4310, L500.4050, L300.3900 #### [facility] [address] [place], [address] Albumin/Globulin [Mass ratio] 1.4 {ratio} Normal 0.9-2.4 [facility] Comment on above: Order Comment: CC: C MP CBCD TO DR RODRIGUEZ Performed By: #### L 506.1001, L300.4310, L500.4050, L300.3900 #### [facility] [address] [place], [address] ALK PHOS 82 U/L Normal 35-104 [facility] Comment on above: Order Comment: CC: C MP CBCD TO DR RODRIGUEZ Performed By: #### L 506.1001, L300.4310, L500.4050, L300.3900 #### [facility] [address] [place], [address] ALT [Catalytic activity/Vol] 14 U/L Normal <=34 [facility] Comment on above: Order Comment: CC: C MP CBCD TO DR RODRIGUEZ Performed By: #### L 506.1001, L300.4310, L500.4050, L300.3900 #### [facility] [address] [place], [address] AST [Catalytic activity/Vol] 22 U/L Normal <=31 [facility] Comment on above: Order Comment: CC: C MP CBCD TO DR RODRIGUEZ Performed By: #### L 506.1001, L300.4310, L500.4050, L300.3900 #### [facility] [address] [place], [address] Bilirubin [Mass/Vol] 0.40 mg/dL Normal 0.00-1.30 [facility] Comment on above: Order Comment: CC: C MP CBCD TO DR RODRIGUEZ Performed By: #### L 506.1001, L300.4310, L500.4050, L300.3900 #### [facility] [address] [place], [address] BUN/CRE 14.2 RATIO Normal 10-20 [facility] Comment on above: Order Comment: CC: C MP CBCD TO DR RODRIGUEZ Performed By: #### L 506.1001, L300.4310, L500.4050, L300.3900 #### [facility] [address] [place], [address] Calcium [Mass/Vol] 9.3 mg/dL Normal 7.6-11.0 [facility] Comment on above: Order Comment: CC: C MP CBCD TO DR RODRIGUEZ Performed By: #### L 506.1001, L300.4310, L500.4050, L300.3900 #### [facility] [address] [place], [address] Chloride [Moles/Vol] 102 mmol/L Normal 98-108 [facility] Comment on above: Order Comment: CC: C MP CBCD TO DR RODRIGUEZ Performed By: #### L 506.1001, L300.4310, L500.4050, L300.3900 #### [facility] [address] [place], [address] CO2 [Moles/Vol] 21.4 mmol/L Normal 21.0-32.0 [facility] Comment on above: Order Comment: CC: C MP CBCD TO DR RODRIGUEZ Performed By: #### L 506.1001, L300.4310, L500.4050, L300.3900 #### [facility] [address] [place], [address] Creatinine [Mass/Vol] 1.08 mg/dL Normal 0.70-1.20 [facility] Comment on above: Order Comment: CC: C MP CBCD TO DR RODRIGUEZ Performed By: #### L 506.1001, L300.4310, L500.4050, L300.3900 #### [facility] [address] [place], [address] ECRCL 44.99 ml/min Low 50-250 [facility] Comment on above: Order Comment: CC: C MP CBCD TO DR RODRIGUEZ Performed By: #### L 506.1001, L300.4310, L500.4050, L300.3900 #### [facility] [address] [place], [address] GAP 13 Normal 5-15 [facility] Comment on above: Order Comment: CC: C MP CBCD TO DR RODRIGUEZ Performed By: #### L 506.1001, L300.4310, L500.4050, L300.3900 #### [facility] [address] [place], [address] GFR/1.73 sq M.predicted among non-blacks MDRD (S/P/Bld) [Vol rate/Area] 52 mL/min/{1.73_m2} Low >60 [facility] Comment on above: Order Comment: CC: C MP CBCD TO DR RODRIGUEZ Result Comment: mL/m in/1.73m2 CKD-EPI Creatinine Equation (2020) Performed By: #### L 506.1001, L300.4310, L500.4050, L300.3900 #### [facility] [address] [place], [address] Globulin (S) [Mass/Vol] 2.9 g/dL Normal 2.2-4.2 [facility] Comment on above: Order Comment: CC: C MP CBCD TO DR RODRIGUEZ Performed By: #### L 506.1001, L300.4310, L500.4050, L300.3900 #### [facility] [address] [place], [address] Glucose [Mass/Vol] 129 mg/dL High 70-99 [facility] Comment on above: Order Comment: CC: C MP CBCD TO DR RODRIGUEZ Performed By: #### L 506.1001, L300.4310, L500.4050, L300.3900 #### [facility] [address] [place], [address] Potassium [Moles/Vol] 4.1 mmol/L Normal 3.3-5.1 [facility] Comment on above: Order Comment: CC: C MP CBCD TO DR RODRIGUEZ Performed By: #### L 506.1001, L300.4310, L500.4050, L300.3900 #### [facility] [address] [place], [address] Sodium [Moles/Vol] 136 mmol/L Normal 133-145 [facility] Comment on above: Order Comment: CC: C MP CBCD TO DR RODRIGUEZ Performed By: #### L 506.1001, L300.4310, L500.4050, L300.3900 #### [facility] [address] [place], [address] T PROT 6.9 g/dL Normal 5.9-8.4 [facility] Comment on above: Order Comment: CC: C MP CBCD TO DR RODRIGUEZ Performed By: #### L 506.1001, L300.4310, L500.4050, L300.3900 #### [facility] [address] [place], [address] Urea nitrogen [Mass/Vol] 15 mg/dL Normal 4-19 [facility] Comment on above: Order Comment: CC: C MP CBCD TO DR RODRIGUEZ Performed By: #### L 506.1001, L300.4310, L500.4050, L300.3900 #### [facility] [address] [place], [address] Eosinophil percentageOrdered By: Carolyn Ruvalcaba on 10-11-2024 Eosinophils/100 WBC (Bld) 1.1 % 0-5 [facility] Erythrocyte distribution wid th ratioOrdered By: Carolyn Ruvalcaba on 10-11-2024 Erythrocyte distribution width (RBC) [Ratio] 16.2 % High 11.6-14.6 [facility] Erythrocyte distribution wid th standard deviationOrdered By: Carolyn Ruvalcaba on 10-11-2024 Erythrocyte distribution width (RBC) [Ratio] 65.8 fl High 35.1-43.9 [facility] Glomerular filtration rate ( GFR) estimation/1.73 sq m using serum, plasma, or whole bOrdered By: Carolyn Ruvalcaba on 10-11-2024 GFR/1.73 sq M.predicted among non-blacks MDRD (S/P/Bld) [Vol rate/Area] 52 mL/min/{1.73_m2} Low >60 [facility] Comment on above: mL/min/1.73m2 CKD-EP I Creatinine Equation (2020) Hematocrit Auto (Bld) [Volum e fraction]Ordered By: Carolyn Ruvalcaba on 10-11-2024 Hematocrit (Bld) [Volume fraction] 36.1 % Low 37-47 [facility] Hemoglobin measurementOrdere d By: Carolyn Ruvalcaba on 10-11-2024 Hemoglobin (Bld) [Mass/Vol] 12.1 g/dL 12.0-15.0 [facility] Immature granulocytes/100 WB C Auto (Bld)Ordered By: Carolyn Ruvalcaba on 10-11-2024 Immature granulocytes/100 WBC (Bld) 0.500 % 0.0-0.9 [facility] Comment on above: IG% - Immature Granu locytes (promyelocytes, myelocytes and metamyelocytes) > 1% indicates that a LEFT SHIFT is Present. Laboratory - Chemistry and C hemistry - challengeOrdered By: Carolyn Ruvalcaba on 10-11-2024 AST [Catalytic activity/Vol] 22 U/L <32 [facility] MCV (mean corpuscular volume ) determinationOrdered By: Carolyn Ruvalcaba on 10-11-2024 MCV (RBC) [Entitic vol] 110.7 fL High 81-99 [facility] Mean corpuscular hemoglobin (MCH) determinationOrdered By: Carolyn Ruvalcaba on 10-11-2024 MCH (RBC) [Entitic mass] 37.1 pg High 27.0-32.0 [facility] Mean corpuscular hemoglobin concentration (MCHC) determinationOrdered By: Carolyn Ruvalcaba on 10-11-2024 MCHC (RBC) [Mass/Vol] 33.5 g/dL 32-36 [facility] Mean platelet volume determi nationOrdered By: Carolyn Ruvalcaba on 10-11-2024 Platelet mean volume (Bld) [Entitic vol] 10.3 fL 6.2-12.0 [facility] Monocyte percentageOrdered B y: Carolyn Ruvalcaba on 10-11-2024 Monocytes/100 WBC (Bld) 10.3 % High 0-10 [facility] Neutrophil percentageOrdered By: Carolyn Ruvalcaba on 10-11-2024 Neutrophils/100 WBC (Bld) 57.3 % 47-70 [facility] Nucleated red blood cell per centageOrdered By: Carolyn Ruvalcaba on 10-11-2024 Nucleated RBC/100 WBC (Bld) [Ratio] 0 % 0-5 [facility] Oncology Visit Reporton 09-20 Oncology Visit Report [facility] [place] [facility] [place] [address] OFFICE VISIT Date of Service: 10/11/24 1453 MR#: [id number] Acct: [id number] Name: BERNICE JUAN Rep #: [id number] : 1945 From: Carolyn Carcamo Age/Sex: 79/F Location: 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 She has no known chronic infectious or inflammatory diseases. 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 Treatment: Hydrea started July 29, 2018 Interval History The patient is presenting to clinic today accompanied by for planned 3-month follow-up. Patient confirms adherence to oral therapy with Hydrea at this time, 1000 mg daily days on Wednesdays and ASA. Although she is scheduled for a left knee replacement on Wednesday10/16/24 and was instructed to hold ASA this week. + Chronic BLE edema, improves with elevation. Specifically denies headache, dizziness, CP, palpitations, cough, SOB, abd pain, any episodes of overt bleeding, + bruises easily. [facility] Medical History (Updated 10/04/24 @ 13:55 by Joanie Rodgers) Cardiology follow-up encounter Wears glasses Post-menopausal Depression Anxiety Ambulates with cane Walker as ambulation aid Arthritis Migraine headache History of IBS Non-smoker History of edema History of pain when walking Thrombocythemia Hx of fracture of leg Fracture of left hip requiring operative repair Vitamin D deficiency Osteopenia Melanoma in situ Hypothyroidism Hyperlipidemia Hypertension Surgical History History of total right knee replacement Hx of right cataract extraction Hx of left cataract extraction History of breast lump removal History of hip surgery Family History Father Rheumatoid arthritis Social History household members: none housing: condominium Smoking Status: Never smoker second hand exposure: No alcohol intake: never substance use type: does not use justice/jehovah's witness: Spiritism seatbelt use: always do you feel safe at home: Yes ROS ROS Narrative Negative except as documented in the interval HPI Intake Vital Signs 07/10/24 13:45 09/20/24 14:30 10/11/24 14:54 10/11/24 15:05 Height 5 ft 5 in 5 ft 5 in 5 ft 5 in 5 ft 5 in BP 169/73 H Blood Pressure Location Rt brachial Position Sitting Respiration 16 Pulse 52 L Pulse Source Monitor Temp 98.2 F Temperature Source Temporal Artery Pulse Oximetry (%) 98 Oxygen Delivery Method room air Intake Is patient in pain?: No Allergies promethazine HCl (From Phenergan) Allergy (Severe, Verified 10/11/24 15:04) Other Penicillins Adverse Reaction (Severe, Verified 10/11/24 15:04) Swelling red dye Adverse Reaction (Severe, Verified 10/11/24 15:04) Unknown Tetanus Vaccines and Toxoid Adverse Reaction (Intermediate, Verified 10/11/24 15:04) NEEDS FOLLOW-UP Medications ???Medication ???Instructions ???Recorded ???Confirmed ???Type levothyroxine 50 mcg tablet 50 mcg PO DAILY thyroid 08/04/13 0 10/11/24 History (Levoxyl) losartan 100 mg tablet 100 mg PO DAILY bp 06/06/18 History amlodipine 5 mg tablet 5 mg PO DAILY bp 07/21/18 10/11/24 History cholecalciferol (vitamin D3) 25 1,000 unit PO DAILY bones 10/26/19 10/11/24 History mcg (1,000 unit) tablet atenolol 50 mg tablet 50 mg PO DAILY@0800 30 days #30 10/11/24 Rx tabs aspirin 81 mg chewable tablet 81 mg PO DAILY 09/20/24 10/11/24 H istory hydroxyurea 500 mg capsule 1,000 mg (2 x 500 mg) PO 10/02/24 10/11/24 Rx MOTUTHFRSA #100 caps acetaminophen 500 mg tablet 1,000 mg PO BID PRN inflammation 0 10/04/24 10/11/24 History Have you fallen in the past year?: No Central Venous Access Central Venous Access: No Laboratory Tests 10/11/24 14:18 WBC 3.7 L Hgb 12.1 Hct 36.1 L Plt Count 244 Absolute Neuts (auto) 2.1 Laboratory Tests 10/11/24 14:18 Sodium 136 Potassium 4.1 Chloride 102 Carbon Dioxide 21.4 BUN 15 Creatinine 1.08 Glucose 129 H Total Bilirubin 0.40 AST 22 ALT 14 Alkaline Phosphatase 82 Albumin 4.0 Exam Physical Exam Const alert and oriented x3 Constitutional Narrative: ECOG 1-2, General Appearance: cooperative and comfortable Nutritional Appearance: obese HEENT normocephalic Mouth: oral and palat (more content not included)... Normal [facility] Platelet countOrdered By: Ke Ruvalcaba on 10-11-2024 Platelets (Bld) [#/Vol] 244 10*3/uL 150-450 [facility] Potassium measurement (mass/ volume)Ordered By: Carolyn Ruvalcaba on 10-11-2024 Potassium (Unsp spec) [Mass/Vol] 4.1 mmol/L 3.3-5.1 [facility] RBC Auto (Bld) [#/Vol]Ordere d By: Carolyn Ruvalcaba on 10-11-2024 RBC (Bld) [#/Vol] 3.26 10*6/uL Low 4.2-5.4 [facility] Serum creatinine measurement (mass/volume)Ordered By: Carolyn Ruvalcaba on 10-11-2024 Creatinine [Mass/Vol] 1.08 mg/dL 0.70-1.20 [facility] Serum globulin measurementOr dered By: Carolyn Ruvalcaba on 10-11-2024 Globulin (S) [Mass/Vol] 2.9 g/dL 2.2-4.2 [facility] Serum glucose measurement (m ass/volume)Ordered By: Carolyn Ruvalcaba on 10-11-2024 Glucose [Mass/Vol] 129 mg/dL High 70-99 [facility] Serum or plasma alanine bey otransferase (ALT) measurementOrdered By: Carolyn Ruvalcaba on 10-11-2024 ALT [Catalytic activity/Vol] 14 U/L <35 [facility] Serum or plasma albumin niels urement (mass/volume)Ordered By: Carolyn Ruvalcaba on 10-11-2024 Albumin [Mass/Vol] 4.0 g/dL 3.4-4.8 [facility] Serum or plasma albumin/glob ulin mass ratioOrdered By: Carolyn Ruvalcaba on 10-11-2024 Albumin/Globulin [Mass ratio] 1.4 {ratio} 0.9-2.4 [facility] Serum or plasma alkaline victor hugo sphatase measurementOrdered By: Carolyn Ruvalcaba on 10-11-2024 ALP [Catalytic activity/Vol] 82 U/L 35-104 [facility] Serum or plasma calcium niels urement (mass/volume)Ordered By: Carolyn Ruvalcaba on 10-11-2024 Calcium [Mass/Vol] 9.3 mg/dL 7.6-11.0 [facility] Serum or plasma urea nitroge n measurement (mass/volume)Ordered By: [facility] on 10-11-2024 Urea nitrogen [Mass/Vol] 15 mg/dL 4-19 [facility] Sodium [facility]Ordered By: [facility] on 10-11-2024 Sodium [Moles/Vol] 136 mmol/L 133-145 [facility] Total proteinOrdered By: Nayan Ruvalcaba on 10-11-2024 Protein [Mass/Vol] 6.9 g/dL 5.9-8.4 [facility] White blood cell (WBC) count Ordered By: [facility] on 10-11-2024 WBC (Bld) [#/Vol] 3.7 10*3/uL Low 4.4-11.0 [facility] MR/PAT.ANEon 10-05-2024 MR/PAT.ANE [facility] Medical Records Department [address] [place] [address] PAT - Anesthesia 10/05/24 1553 MR#: [id number] Acct: [id number] Name: BERNICE JUAN Rep #: [id number] : 1945 79 From: Avery Rod MD PCP: Dr. Dago Emery MD [place] [facility] C [place] [facility] [place]-Assessment Diagnosis/Proposed Procedure Planned Operative Procedure(s): ROBOTIC ASSISTED LEFT TOTAL KNEE ARTHROPLASTY Anesthesia History Anesthesia History - safety instruction police officer: Anesthesia History - safety instruction police officer Hx Hospitalization No 10/04/24 13:47 Any Problems With Anesthesia No 10/04/24 13:47 Cholinesterase deficiency No 10/04/24 13:47 You/Your Family Experience No 10/04/24 13:47 fever (hyperthermia) with Relationship Recent Exposure to Contagious No 09/23/22 07:09 Disease Does patient have nerve No 10/04/24 13:47 stimulator Patient instructed to have device shut off --Does patient have Pacemaker or ICD? When Was Last Pacemaker Check QUESTION #4 FULL TEXT: You/Your Family Experience fever (hyperthermia) with Anesthesia Last Oral Intake Last Oral intake: Last Oral Intake NPO since Meds taken in AM with sips of water? Meds patient instructed to take am of surgery PONV PONV - safety instruction police officer: PONV - safety instruction police officer Female Yes 10/04/24 13:47 HX of Motion Sickness Yes 10/04/24 13:47 HX of N/V After Surgery No 10/04/24 13:47 Non-Smoker Yes 10/04/24 13:47 Duration of Surgery greater Yes 10/04/24 13:47 than 60 minutes Number of Risk Factors 4 10/04/24 13:47 PONV Score Severe Risk 10/04/24 13:47 Height Weight Height Weight: Anesthesia: Height Weight Height 5 ft 5 in 09/20/24 14:30 Respiratory Assessment Respiratory Assessment - safety instruction police officer: Respiratory Tract Infection Hx - safety instruction police officer Hx Respiratory Tract Infection No 10/04/24 13:47 STOP Sleep Apnea STOP Sleep Apnea - safety instruction police officer: STOP Sleep Apnea - safety instruction police officer Hx Hypertension Yes: CONTROLLED WITH MED 10/04/24 13:47 Hx Sleep Apnea No 10/04/24 13:47 CPAP No 10/04/24 13:47 BIPAP No 10/04/24 13:47 Do you snore loudly (louder No 10/04/24 13:47 than talking or can be heard Do you often feel tired/ No 10/04/24 13:47 fatigued/ sleepy during daytime? Has anyone observed you stop No 10/04/24 13:47 breathing during sleep? STOP Results Negative 10/04/24 13:47 QUESTION #5 FULL TEXT : Do you snore loudly (louder than talking or can be heard through closed doors)? Tobacco Use History Tobacco Use History - safety instruction police officer: Tobacco Use History - safety instruction police officer Tobacco Use Smoking Status Never smoker 10/04/24 13:47 Hx Tobacco Use No 10/04/24 13:47 Years Smoking Packs Smoked per Day Smoking Cessation Date was within the last 15 years Hx Smoking Cessation Date Hx Smoking Cessation Counseling Hematologic Medial History Hematologic Hx - safety instruction police officer: Hematologic Medical Hx - regional account executive Hx of Blood Transfusion No 10/04/24 13:47 Hx of Transfusion in last 3 No 10/04/24 13:47 Months Date of Last Transfusion (if within last 3 months) Ever experience any problems No 10/04/24 13:47 with transfusion(s)? Specify any problems Hx of Preganancy in last 3 No 10/04/24 13:47 Months Nurse Filling Out Transfusion DSCHRIBER 10/04/24 13:47 Questions: Date: 10/04/24 10/04/24 13:47 Time: 13:47 10/04/24 13:47 Patient unable to answer at this time (ie. confused, unrespo /Reproduction History /Reproductive History - safety instruction police officer: /Reproductive Hx- safety instruction police officer Hx Now No 10/04/24 13:47 Gestational Age (in weeks): EDC: Hx Hx Para Hx Section SAB No 10/04/24 13:47 PFSH Medical History (Updated 10/04/24 @ 13:55 by Joanie Rodgers) Cardiology follow-up encounter Wears glasses Post-menopausal Depression Anxiety Ambulates with cane Walker as ambulation aid Arthritis Migraine headache History of IBS Non-smoker History of edema History of pain when walking Thrombocythemia Hx of fracture of leg Fracture of left hip requiring operative repair Vitamin D deficiency Osteopenia Melanoma in situ Hypothyroidism Hyperlipidemia Hypertension Home Medications ???Medication ???Instructions ???Recorded ???Last Taken ???Type levothyroxine 50 mcg tablet 50 mcg PO DAILY thyroid 08/04/13 0 04/19/14 05:30 History (Levoxyl) losartan 100 mg tablet 100 mg PO DAILY bp 06/06/18 07:00 History 100 MG amlodipine 5 mg tablet 5 mg PO DAILY bp 07/21/18 09/25/22 History cholecalciferol (vitamin D3) 25 1,000 unit PO DAILY pravin (more content not included)... Normal [facility] Cardiology Visit Reporton Cardiology Visit Report [facility] [address] [place], [place] [id number] OFFICE VISIT Date of Service: 09/20/24 MR#: [id number] Acct: [id number] Name: BERNICE JUAN Rep #: [id number] : 1945 Provider: Dr. Omero betancur MD Age/Sex: 79/F Location[place] [facility] [place] Status: Signed HPI HPI History of Present Illness Details: Patient is a pleasant 79-year-old white female that comes in today for new patient visit for preop clearance. Patient is scheduled for mid October for knee surgery with Dr. Rodriguez. The patient is examined in the wheelchair today she has very limited activities in her home environment. The patient had an ECG done in Dr. Emery's office August 01, 2024 which showed sinus bradycardia at 50 bpm and some minor nonspecific ST changes that looked like dig effect. These were not consistent with an ischemic ECG. The patient has a history of thrombocytosis followed by hematology she is on hydroxyurea. She also has a history of hypertension her blood pressure is well-controlled at 124/73 her heart rate is 56 she is on atenolol amlodipine and losartan. She also has a history of hyperlipidemia which is managed through Dr. Emery's office. The patient is not on any statin therapy. The patient does not have a family history of early coronary disease she is hypertensive and hyperlipidemic by report. She has never smoked and is not diabetic. The patient has tolerated 3 prior orthopedic lower extremity interventions the latest of which was a right total knee replacement 2 years ago. The patient does not have much in the way of activities to gauge her lack of or presence of anginal symptoms. She does adamantly deny any dyspnea on exertion or shortness of breath or any type of chest symptoms. The patient recently lost her best friend of 70+ years and is desponded over this loss. Intake Vital Signs 07/10/24 13:45 09/20/24 14:30 Height 5 ft 5 in 5 ft 5 in Weight: 195 lb BMI 32.4 BP 124/73 H Blood Pressure Location Rt brachial Position Sitting Respiration 18 Pulse 56 L Pulse Source Monitor Pulse Oximetry (%) 95 Oxygen Delivery Method room air Comment weight per pt report Intake Visit Reasons: ABN EKG (Rupert) Interpreter Translator Required: No Accompanied by: Self Is patient in pain?: No Allergies promethazine HCl (From Phenergan) Allergy (Severe, Verified 09/20/24 14:30) Other Penicillins Adverse Reaction (Severe, Verified 09/20/24 14:30) Swelling red dye Adverse Reaction (Severe, Verified 09/20/24 14:30) Unknown Tetanus Vaccines and Toxoid Adverse Reaction (Intermediate, Verified 09/20/24 14:30) NEEDS FOLLOW-UP Medications ???Medication ???Instructions ???Recorded ???Confirmed ???Type levothyroxine 50 mcg tablet 50 mcg PO DAILY thyroid 08/04/13 0 09/20/24 History (Levoxyl) losartan 100 mg tablet 100 mg PO DAILY bp 06/06/18 History amlodipine 5 mg tablet 5 mg PO DAILY bp 07/21/18 09/20/24 History cholecalciferol (vitamin D3) 25 1,000 unit PO DAILY bones 10/26/19 09/20/24 History mcg (1,000 unit) tablet acetaminophen 500 mg tablet 1,000 mg (2 x 500 mg) PO TID 09/2509/20/24 Rx inflammation 14 days #84 tabs atenolol 50 mg tablet 50 mg PO DAILY@0800 30 days #30 09/20/24 Rx tabs aspirin 81 mg chewable tablet 81 mg PO QDAY 09/20/24 History hydroxyurea 500 mg capsule 1,000 mg PO MOTUTHFRSA 09/20/24 H istory Have you fallen in the past year?: Yes PFSH Medical History Thyroid disease Wears glasses Post-menopausal Depression Anxiety Ambulates with cane Walker as ambulation aid Arthritis Migraine headache History of IBS Non-smoker History of edema History of pain when walking Thrombocythemia Hx of fracture of leg Fracture of left hip requiring operative repair Vitamin D deficiency Osteopenia Melanoma in situ Hypothyroidism Hyperlipidemia Hypertension Surgical History History of total right knee replacement Hx of right cataract extraction Hx of left cataract extraction History of breast lump removal History of hip surgery Family History Father Rheumatoid arthritis Social History household members: none housing: condominium Smoking Status: Never smoker second hand exposure: No alcohol intake: never substance use type: does not use justice/jehovah's witness: Spiritism seatbelt use: always do you feel safe at home: Yes ROS Const Const: Positive for fatigue and weakness ENT ENT: Negative for dizziness or balance problems Cardio Chest Pain: No Palpitations: No Edema: Right Muscle ach (more content not included)... Normal [facility] Electrocardiogram reportOrde red By: Omero Armas on 08-03-2024 EKG study [facility] Cardiovascular Services [address] [place] [address] 12 Lead EKG 08/01/24 1400 MR#: [id number] Acct: [id number] Name: BERNICE JUAN Rep #:[id number] : 1945 79 From: Omero betancur MD Attending Dr: Dr. Dago Emery MD Status: REG CLI Ordering Dr: Dago Emery MD Date: Location: N Sex: F C Admitted: Test Reason : PREOP Blood Pressure : */* mmHG Vent. Rate : 50 BPM Atrial Rate : 50 BPM P-R Int : 196 ms QRS Dur : 84 ms QT Int : 440 ms P-R-T Axes : 67 73 47 degrees QTcB Int : [address] abnormality, possible digitalis effect Abnormal ECG Confirmed by Omero Armas ([id number]), editor house organ BONY SANCHEZ ([id number]) on 08/03/2024 10:09:09 AM Referred By: Dago Emery Confirmed By: Omero Armas 08/03/24 1009 Date _ Omero Armas MD CC: Dr. Dago Emery MD ~ Signed [facility] Other Phone: MRSA/SAID NASAL SCREENon MRSA+SAID SCRN Reason for Exam: PRE OP MRSA MRSA Negative S. AUREUS S. aureus Negative Normal [facility] Comment on above: Performed By: #### M 100.651, L501.1800 ####[facility] [address] [place], [place], [id number] 12 Lead EKGon 08-01-2024 12 Lead EKG [facility] Cardiovascular Services [address] [place] [address] 12 Lead EKG 08/01/24 1400 MR#: [id number] Acct: [id number] Name: BERNICE JUAN Rep #: [id number] : 1945 79 From: Omero Armas MD Attending Dr: Dr. Dago Emery MD Status: REG CLI Ordering Dr: Dago Emery MD Date: 08/01/24 Location: [facility] Sex: F C Admitted: Test Reason : PREOP Blood Pressure : */* mmHG Vent. Rate : 50 BPM Atrial Rate : 50 BPM P-R Int : 196 ms QRS Dur : 84 ms QT Int : 440 ms P-R-T Axes : 67 73 47 degrees QTcB Int : [address] abnormality, possible digitalis effect Abnormal ECG Confirmed by Omero Armas ([id number]), editor house organ BOYN SANCHEZ ([id number]) on 08/03/2024 10:09:09 AM Referred By: Dago Emery Confirmed By: Omero Armas 08/03/24 1009 Date Omero Armas MD CC: Dr. Dago Emery MD Signed Normal [facility] Extremity Lower without Cont raon 08-01-2024 Extremity Lower without Contra [facility] Imaging Services [address] [place], [place] [address] Extremity Lower without Contra MR#: [id number] Acct: [id number] Name: BERNICE JUAN Rep #: [id number] : 1945 F 79 From: Howard Crocker PCP: Dr. Dago Emery MD Status: REG CLI Study: Extremity Lower without Contra Date of Exam: 0 08/01/24 Exam# [id number] Ordering Dr: Geo Rodriguez MD PROCEDURE: EXTREMITY LOWER WITHOUT CONTRA 08/01/2024 REASON FOR EXAM: OSTEOARTHRITIS LEFT KNEE TECHNIQUE: Axial CT images of the left hip, left knee, left ankle obtained without intravenous contrast, as a FRANCESCA exam for the knee.. Coronal and Sagittal reconstruction series were provided for the left knee. One or more dose reduction techniques were used (e.g., Automated exposure control, adjustment of the mA and/or kV according to patient size, use of iterative reconstruction technique). RADIATION DOSE SUMMARY: DLP: 1328.46 mGycm. COMPARISON: None provided. FINDINGS: Partially visualized left proximal femoral fixation device in place. No evidence of metallic fracture or loosening. Imaging of the left ankle demonstrates mild degenerative changes. Partially visualized fixation device in the distal tibia without apparent complication. Imaging of the left hip demonstrates moderate degenerative changes, with significant partial joint narrowing. No evidence of femoral head osteonecrosis. The left knee demonstrates a small joint effusion. Moderately severe to severe tricompartmental left knee degenerative changes are noted. No fracture site is seen. Moderate arterial calcification is noted. CT/Extremity Lower without Contra IMPRESSION: 1. Degenerative changes of the left hip, left ankle, and especially left knee. 2. Partially visualized fixation devices of the proximal left femur and distal left tibia without apparent complication. Reading Location: [place] [address] CC: Dr. eGo Rodriguez MD; Dr. Dago Emery MD Promotional Representative: Signed [facility] MR/PAT.ANEon 08-01-2024 MR/PAT.[facility] Medical Records Department [address] [place] [address] PAT - Anesthesia 08/01/24 1627 MR#: [id number] Acct: [id number] Name: BERNICE JUAN Rep #: [id number] : 1945 79 From: Ilya Coelho MD PCP: Dr. 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 When Was Last Pacemaker Check QUESTION #4 FULL TEXT: You/Your Family Experience fever (hyperthermia) with Anesthesia Last Oral Intake Last Oral intake: Last Oral Intake NPO since Meds taken in AM with sips of water? Meds patient instructed to take am of surgery PONV PONV - safety instruction police officer: PONV - safety instruction police officer Female Yes 07/31/24 11:35 HX of Motion Sickness Yes 07/31/24 11:35 HX of N/V After Surgery No 07/31/24 11:35 Non-Smoker Yes 07/31/24 11:35 Duration of Surgery greater Yes 07/31/24 11:35 than 60 minutes Number of Risk Factors 4 07/31/24 11:35 PONV Score Severe Risk 07/31/24 11:35 Height Weight Height Weight: Anesthesia: Height Weight Height 5 ft 5 in 07/10/24 13:45 Respiratory Assessment Respiratory Assessment - safety instruction police officer: Respiratory Tract Infection Hx - safety instruction police officer Hx Respiratory Tract Infection No 07/31/24 11:35 STOP Sleep Apnea STOP Sleep Apnea - safety instruction police officer: STOP Sleep Apnea - safety instruction police officer Hx Hypertension Yes: CONTROLLED WITH MED 07/31/24 11:35 Hx Sleep Apnea No 07/31/24 11:35 CPAP No 09/23/22 10:11 BIPAP No 12/02/18 13:53 Do you snore loudly (louder No 07/31/24 11:35 than talking or can be heard Do you often feel tired/ No 07/31/24 11:35 fatigued/ sleepy during daytime? Has anyone observed you stop No 07/31/24 11:35 breathing during sleep? STOP Results Negative 07/31/24 11:35 QUESTION #5 FULL TEXT : Do you snore loudly (louder than talking or can be heard through closed doors)? Tobacco Use History Tobacco Use History - safety instruction police officer: Tobacco Use History - safety instruction police officer Tobacco Use Smoking Status Never smoker 07/31/24 11:35 Hx Tobacco Use No 07/31/24 11:35 Years Smoking Packs Smoked per Day Smoking Cessation Date was within the last 15 years Hx Smoking Cessation Date Hx Smoking Cessation Counseling Hematologic Medial History Hematologic Hx - safety instruction police officer: Hematologic Medical Hx - regional account executive Hx of Blood Transfusion No 07/31/24 11:35 Hx of Transfusion in last 3 No 07/31/24 11:35 Months Date of Last Transfusion (if within last 3 months) Ever experience any problems No 07/31/24 11:35 with transfusion(s)? Specify any problems Hx of Preganancy in last 3 N/A 07/31/24 11:35 Months Nurse Filling Out Transfusion NBUCHER 07/31/24 11:35 Questions: Date: 07/31/24 07/31/24 11:35 Time: 11:38 07/31/24 11:35 Patient unable to answer at this time (ie. confused, unrespo /Reproduction History /Reproductive History - safety instruction police officer: /Reproductive Hx- safety instruction police officer Hx Now No 07/31/24 11:35 Gestational Age (in weeks): EDC: Hx Hx Para Hx Section SAB No 07/31/24 11:35 [facility] Medical History (Updated 07/31/24 @ 11:45 by Jessica Ahuja) Thyroid disease Wears glasses Post-menopausal Depression Anxiety Ambulates with cane Walker as ambulation aid Arthritis Migraine headache History of IBS Non-smoker History of edema History of pain when walking Thrombocythemia Hx of fracture of leg Fracture of left hip requiring operative repair Vitamin D deficiency Osteopenia Melanoma in situ Hypothyroidism Hyperlipidemia Hypertension Home Medications ???Medication ???Instructions ???Recorded ???Last Taken ???Type levothyroxine 50 mcg tablet 50 mcg PO DAILY thyroid 08/04/13 0 04/19/14 05:30 History (Levoxyl) losartan 100 mg tablet 100 mg PO DAILY bp 06/06/18 07:00 History 100 MG amlodipine 5 mg tablet 5 mg PO DAILY bp 07/21/18 09/25/22 History cholecalciferol (vitamin D3) 25 1,000 unit PO DAILY bones 10/26/19 (more content not included)... Normal [facility] Albumin, Serumon 07-31-2024 Albumin [Mass/Vol] 3.9 g/dL Normal 3.4-4.8 [facility] Comment on above: Performed By: #### M 100.651, L501.1800 ####[facility] [address] [place], [address] Comprehensive Metabolic Prof pron 07-31-2024 Albumin [Mass/Vol] 4.0 g/dL Normal 3.4-4.8 [facility] Comment on above: Performed By: #### L 506.1001, L300.4310, L500.4050, L300.3900 #### [facility] [address] [place], [address] Albumin/Globulin [Mass ratio] 1.6 {ratio} Normal 0.9-2.4 [facility] Comment on above: Performed By: #### L 506.1001, L300.4310, L500.4050, L300.3900 #### [facility] [address] [place], [address] ALK PHOS 92 U/L Normal 35-104 [facility] Comment on above: Performed By: #### L 506.1001, L300.4310, L500.4050, L300.3900 #### [facility] [address] [place], [address] ALT [Catalytic activity/Vol] 14 U/L Normal <=34 [facility] Comment on above: Performed By: #### L 506.1001, L300.4310, L500.4050, L300.3900 #### [facility] [address] [place], [address] AST [Catalytic activity/Vol] 22 U/L Normal <=31 [facility] Comment on above: Performed By: #### L 506.1001, L300.4310, L500.4050, L300.3900 #### [facility] [address] [place], [address] Bilirubin [Mass/Vol] 0.42 mg/dL Normal 0.00-1.30 [facility] Comment on above: Performed By: #### L 506.1001, L300.4310, L500.4050, L300.3900 #### [facility] [address] [place], [address] BUN/CRE 19.1 RATIO Normal 10-20 [facility] Comment on above: Performed By: #### L 506.1001, L300.4310, L500.4050, L300.3900 #### [facility] [address] [place], [address] Calcium [Mass/Vol] 9.5 mg/dL Normal 7.6-11.0 [facility] Comment on above: Performed By: #### L 506.1001, L300.4310, L500.4050, L300.3900 #### [facility] [address] [place], [address] Chloride [Moles/Vol] 105 mmol/L Normal 98-108 [facility] Comment on above: Performed By: #### L 506.1001, L300.4310, L500.4050, L300.3900 #### [facility] [address] [place], [address] CO2 [Moles/Vol] 23.0 mmol/L Normal 21.0-32.0 [facility] Comment on above: Performed By: #### L 506.1001, L300.4310, L500.4050, L300.3900 #### [facility] [address] [place], [address] Creatinine [Mass/Vol] 0.97 mg/dL Normal 0.70-1.20 [facility] Comment on above: Performed By: #### L 506.1001, L300.4310, L500.4050, L300.3900 #### [facility] [address] [place], [address] GAP 12 Normal 5-15 [facility] Comment on above: Performed By: #### L 506.1001, L300.4310, L500.4050, L300.3900 #### [facility] [address] [place], [address] GFR/1.73 sq M.predicted among non-blacks MDRD (S/P/Bld) [Vol rate/Area] 59 mL/min/{1.73_m2} Low >60 [facility] Comment on above: Result Comment: mL/m in/1.73m2 CKD-EPI Creatinine Equation (2020) Performed By: #### L 506.1001, L300.4310, L500.4050, L300.3900 #### [facility] [address] [place], [address] Globulin (S) [Mass/Vol] 2.4 g/dL Normal 2.2-4.2 [facility] Comment on above: Performed By: #### L 506.1001, L300.4310, L500.4050, L300.3900 #### [facility] [address] [place], [address] Glucose [Mass/Vol] 127 mg/dL High 70-99 [facility] Comment on above: Performed By: #### L 506.1001, L300.4310, L500.4050, L300.3900 #### [facility] [address] [place], [address] Potassium [Moles/Vol] 4.5 mmol/L Normal 3.3-5.1 [facility] Comment on above: Performed By: #### L 506.1001, L300.4310, L500.4050, L300.3900 #### [facility] [address] [place], [address] Sodium [Moles/Vol] 139 mmol/L Normal 133-145 [facility] Comment on above: Performed By: #### L 506.1001, L300.4310, L500.4050, L300.3900 #### [facility] [address] [place], [address] T PROT 6.4 g/dL Normal 5.9-8.4 [facility] Comment on above: Performed By: #### L 506.1001, L300.4310, L500.4050, L300.3900 #### [facility] [address] [place], [address] Urea nitrogen [Mass/Vol] 19 mg/dL Normal 4-19 [facility] Comment on above: Performed By: #### L 506.1001, L300.4310, L500.4050, L300.3900 #### [facility] [address] [place], [address] Magnesiumon 07-31-2024 Magnesium [Mass/Vol] 2.3 mg/dL High 1.5-2.2 [facility] Comment on above: Performed By: #### L 501.5200, L501.9520 ####[facility] [address] [place], [address] Partial Thromboplast Timeon 07-31-2024 aPTT Coag (Bld) [Time] 26.1 s Normal 24.1-36.2 [facility] Comment on above: Performed By: #### L 506.1001, L300.4310, L500.4050, L300.3900 #### [facility] [address] [place], [address] Prothrombin Time w/INRon INR Coag (PPP) [Relative time] 0.9 {INR} Normal [facility] Comment on above: Performed By: #### L 506.1001, L300.4310, L500.4050, L300.3900 #### [facility] [address] [place], [address] PT Coag (PPP) [Time] 12.6 s Normal 11.7-14.9 [facility] Comment on above: Performed By: #### L 506.1001, L300.4310, L500.4050, L300.3900 #### [facility] [address] [place], [address] Thyroid Stim Hormone (TSH)on 07-31-2024 TSH 1.470 uIU/mL Normal 0.300-4.20 0 [facility] Comment on above: Performed By: #### L 501.5200, L501.9520 ####[facility] [address] [place], [address] Vitamin D,25 Hydroxyon 07-31 Vitamin D 25-OH 18.9 ng/mL Low 30-100 [facility] Comment on above: Result Comment: [place] min D Status Deficiency: <20 ng/mL (50nmol/L) Insufficiency: 20-30 ng/mL (50-75 nmol/L) Sufficiency: 30-100 ng/mL (75-250 nmol/L) Toxicity: >100 ng/mL (>250 nmol/L) Performed By: #### L 506.1001, L300.4310, L500.4050, L300.3900 #### [facility] [address] [place], [address] Absolute lymphocyte countOrd ered By: Umang Pate on 07-10-2024 Lymphocytes Auto (Unsp spec) [#/Vol] 1.19 10*3/uL 0.83-4.51 [facility] Absolute neutrophil countOrd ered By: Umang Pate on 07-10-2024 Neutrophils (Bld) [#/Vol] 3.7 10*3/uL 2.0-7.7 [facility] Anion gap in Serum or Plasma Ordered By: Umang Pate on 07-10-2024 Anion gap [Moles/Vol] 10 mmol/L 5-15 [facility] Automated lymphocyte count a s percentage of total leukocytesOrdered By: Umang Pate on 07-10-2024 Lymphocytes/100 WBC Auto (Unsp spec) 22.0 % 19-41 [facility] BUN/creatinine ratioOrdered By: Umang Mcmanus on 07-10-2024 Urea nitrogen/Creatinine [Mass ratio] 20.2 mg/mg High 10-20 [facility] Basophil percentageOrdered B y: Umang Pate on 07-10-2024 Basophils/100 WBC (Bld) 0.4 % 0-1 [facility] Bilirubin, totalOrdered By: [facility] Mc[facility]us on 07-10-2024 Bilirubin [Mass/Vol] 0.40 mg/dL 0.00-1.30 [facility] CBC W/Diff, Automatedon 06-21 Absolute Lymph 1.19 X10 3/uL Normal 0.83-4.51 [facility] Comment on above: Performed By: #### L 100.0100, L500.4050 ####[facility] [address] [place], [address] Absolute Neut 3.7 X10 3/uL Normal 2.0-7.7 [facility] Comment on above: Performed By: #### L 100.0100, L500.4050 ####[facility] [address] [place], [address] Basophils/100 WBC (Bld) 0.4 % Normal 0-1 [facility] Comment on above: Performed By: #### L 100.0100, L500.4050 ####[facility] [address] [place], [address] Eosinophils/100 WBC (Bld) 1.3 % Normal 0-5 [facility] Comment on above: Performed By: #### L 100.0100, L500.4050 ####[facility] [address] [place], [address] Erythrocyte distribution width (RBC) [Ratio] 14.9 % High 11.6-14.6 [facility] Comment on above: Performed By: #### L 100.0100, L500.4050 ####[facility] [address] [place], [address] Hematocrit (Bld) [Volume fraction] 38.9 % Normal 37-47 [facility] Comment on above: Performed By: #### L 100.0100, L500.4050 ####[facility] [address] [place], [address] Hemoglobin (Bld) [Mass/Vol] 13.0 g/dL Normal 12.0-15.0 [facility] Comment on above: Performed By: #### L 100.0100, L500.4050 ####[facility] [address] [place], [address] IG% 0.400 Normal 0.0-0.9 [facility] Comment on above: Result Comment: IG% - Immature Granulocytes (promyelocytes, myelocytes and metamyelocytes) > 1% indicates that a LEFT SHIFT is Present. Performed By: #### L 100.0100, L500.4050 ####[facility] [address] [place], [address] Lymphocytes/100 WBC (Bld) 22.0 % Normal 19-41 [facility] Comment on above: Performed By: #### L 100.0100, L500.4050 ####[facility] [address] [place], [address] MCH (RBC) [Entitic mass] 36.6 pg High 27.0-32.0 [facility] Comment on above: Performed By: #### L 100.0100, L500.4050 ####[facility] [address] [place], [address] MCHC (RBC) [Mass/Vol] 33.4 g/dL Normal 32-36 [facility] Comment on above: Performed By: #### L 100.0100, L500.4050 ####[facility] [address] [place], [address] MCV (RBC) [Entitic vol] 109.6 fL High 81-99 [facility] Comment on above: Performed By: #### L 100.0100, L500.4050 ####[facility] [address] [place], [address] Monocytes/100 WBC (Bld) 8.5 % Normal 0-10 [facility] Comment on above: Performed By: #### L 100.0100, L500.4050 ####[facility] [address] [place], [address] Neutrophils/100 WBC (Bld) 67.4 % Normal 47-70 [facility] Comment on above: Performed By: #### L 100.0100, L500.4050 ####[facility] [address] [place], [address] Nucleated RBC (Bld) [#/Vol] 0 10*3/uL Normal 0-5 [facility] Comment on above: Performed By: #### L 100.0100, L500.4050 ####[facility] [address] [place], [address] Platelet mean volume (Bld) [Entitic vol] 10.9 fL Normal 6.2-12.0 [facility] Comment on above: Performed By: #### L 100.0100, L500.4050 ####[facility] [address] [place], [address] Platelets (Bld) [#/Vol] 252 10*3/uL Normal 150-450 [facility] Comment on above: Performed By: #### L 100.0100, L500.4050 ####[facility] [address] [place], [address] RBC (Bld) [#/Vol] 3.55 10*6/uL Low 4.2-5.4 [facility] Comment on above: Performed By: #### L 100.0100, L500.4050 ####[facility] [address] [place], [address] RDW SD 60.0 fl High 35.1-43.9 [facility] Comment on above: Performed By: #### L 100.0100, L500.4050 ####[facility] [address] [place], [address] WBC (Bld) [#/Vol] 5.4 10*3/uL Normal 4.4-11.0 [facility] Comment on above: Performed By: #### L 100.0100, L500.4050 ####[facility] [address] [place], [address] Carbon dioxide, total [Moles /volume] in Central venous bloodOrdered By: Umang Pate on 07-10-2024 CO2 [Moles/Vol] 23.6 mmol/L 21.0-32.0 [facility] Chloride assayOrdered By: Lara Pate on 07-10-2024 Chloride [Moles/Vol] 105 mmol/L 98-108 [facility] Comprehensive Metabolic Prof ilon 07-10-2024 Albumin [Mass/Vol] 4.0 g/dL Normal 3.4-4.8 [facility] Comment on above: Performed By: #### L 100.0100, L500.4050 ####[facility] [address] [place], [address] Albumin/Globulin [Mass ratio] 1.4 {ratio} Normal 0.9-2.4 [facility] Comment on above: Performed By: #### L 100.0100, L500.4050 ####[facility] [address] [place], [address] ALK PHOS 90 U/L Normal 35-104 [facility] Comment on above: Performed By: #### L 100.0100, L500.4050 ####[facility] [address] [place], [address] ALT [Catalytic activity/Vol] 14 U/L Normal <=34 [facility] Comment on above: Performed By: #### L 100.0100, L500.4050 ####[facility] [address] [place], [address] AST [Catalytic activity/Vol] 22 U/L Normal <=31 [facility] Comment on above: Performed By: #### L 100.0100, L500.4050 ####[facility] [address] [place], [address] Bilirubin [Mass/Vol] 0.40 mg/dL Normal 0.00-1.30 [facility] Comment on above: Performed By: #### L 100.0100, L500.4050 ####[facility] [address] [place], [address] BUN/CRE 20.2 RATIO High 10-20 [facility] Comment on above: Performed By: #### L 100.0100, L500.4050 ####[facility] [address] [place], [address] Calcium [Mass/Vol] 9.3 mg/dL Normal 7.6-11.0 [facility] Comment on above: Performed By: #### L 100.0100, L500.4050 ####[facility] [id number] [place], [address] Chloride [Moles/Vol] 105 mmol/L Normal 98-108 [facility] Comment on above: Performed By: #### L 100.0100, L500.4050 ####[facility] [id number] [place], [address] CO2 [Moles/Vol] 23.6 mmol/L Normal 21.0-32.0 [facility] Comment on above: Performed By: #### L 100.0100, L500.4050 ####[facility] [address] [place], [address] Creatinine [Mass/Vol] 0.97 mg/dL Normal 0.70-1.20 [facility] Comment on above: Performed By: #### L 100.0100, L500.4050 ####[facility] [address] [place], [address] ECRCL 50.94 ml/min Normal 50-250 [facility] Comment on above: Performed By: #### L 100.0100, L500.4050 ####[facility] [address] [place], [address] GAP 10 Normal 5-15 [facility] Comment on above: Performed By: #### L 100.0100, L500.4050 ####[facility] [address] [place], [address] GFR/1.73 sq M.predicted among non-blacks MDRD (S/P/Bld) [Vol rate/Area] 59 mL/min/{1.73_m2} Low >60 [facility] Comment on above: Result Comment: mL/m in/1.73m2 CKD-EPI Creatinine Equation (2020) Performed By: #### L 100.0100, L500.4050 ####[facility] [id number] [place], [address] Globulin (S) [Mass/Vol] 2.9 g/dL Normal 2.2-4.2 [facility] Comment on above: Performed By: #### L 100.0100, L500.4050 ####[facility] [address] [place], [address] Glucose [Mass/Vol] 112 mg/dL High 70-99 [facility] Comment on above: Performed By: #### L 100.0100, L500.4050 ####[facility] [address] [place], [address] Potassium [Moles/Vol] 4.0 mmol/L Normal 3.3-5.1 [facility] Comment on above: Performed By: #### L 100.0100, L500.4050 ####[facility] [address] [place], [address] Sodium [Moles/Vol] 139 mmol/L Normal 133-145 [facility] Comment on above: Performed By: #### L 100.0100, L500.4050 ####[facility] [address] [place], [address] T PROT 6.9 g/dL Normal 5.9-8.4 [facility] Comment on above: Performed By: #### L 100.0100, L500.4050 ####[facility] [address] [place], [address] Urea nitrogen [Mass/Vol] 20 mg/dL High 4-19 [facility] Comment on above: Performed By: #### L 100.0100, L500.4050 ####[facility] [address] [place], [address] Eosinophil percentageOrdered By: Umang Pate on 07-10-2024 Eosinophils/100 WBC (Bld) 1.3 % 0-5 [facility] Erythrocyte distribution wid th ratioOrdered By: Umang Pate on 07-10-2024 Erythrocyte distribution width (RBC) [Ratio] 14.9 % High 11.6-14.6 [facility] Erythrocyte distribution wid th standard deviationOrdered By: Umang Pate on 07-10-2024 Erythrocyte distribution width (RBC) [Ratio] 60.0 fl High 35.1-43.9 [facility] Glomerular filtration rate ( GFR) estimation/1.73 sq m using serum, plasma, or whole bOrdered By: Umang Pate on 07-10-2024 GFR/1.73 sq M.predicted among non-blacks MDRD (S/P/Bld) [Vol rate/Area] 59 mL/min/{1.73_m2} Low >60 [facility] Comment on above: mL/min/1.73m2 CKD-EP I Creatinine Equation (2020) Hematocrit Auto (Bld) [Volum e fraction]Ordered By: Umang Pate on 07-10-2024 Hematocrit (Bld) [Volume fraction] 38.9 % 37-47 [facility] Hemoglobin measurementOrdere d By: Umang Pate on 07-10-2024 Hemoglobin (Bld) [Mass/Vol] 13.0 g/dL 12.0-15.0 [facility] Immature granulocytes/100 WB C Auto (Bld)Ordered By: Umang Pate on 07-10-2024 Immature granulocytes/100 WBC (Bld) 0.400 % 0.0-0.9 [facility] Comment on above: IG% - Immature Granu locytes (promyelocytes, myelocytes and metamyelocytes) > 1% indicates that a LEFT SHIFT is Present. Laboratory - Chemistry and C hemistry - challengeOrdered By: Umang Pate on 07-10-2024 AST [Catalytic activity/Vol] 22 U/L <32 [facility] MCV (mean corpuscular volume ) determinationOrdered By: Umang Pate on 07-10-2024 MCV (RBC) [Entitic vol] 109.6 fL High 81-99 [facility] Mean corpuscular hemoglobin (MCH) determinationOrdered By: Umang Pate on 07-10-2024 MCH (RBC) [Entitic mass] 36.6 pg High 27.0-32.0 [facility] Mean corpuscular hemoglobin concentration (MCHC) determinationOrdered By: Umang Pate on 07-10-2024 MCHC (RBC) [Mass/Vol] 33.4 g/dL 32-36 [facility] Mean platelet volume determi nationOrdered By: Umang Pate on 07-10-2024 Platelet mean volume (Bld) [Entitic vol] 10.9 fL 6.2-12.0 [facility] Monocyte percentageOrdered B y: Umang Pate on 07-10-2024 Monocytes/100 WBC (Bld) 8.5 % 0-10 [facility] Neutrophil percentageOrdered By: [facility] Herlinda on 07-10-2024 Neutrophils/100 WBC (Bld) 67.4 % 47-70 [facility] Nucleated red blood cell per centageOrdered By: [facility] Herlinda on 07-10-2024 Nucleated RBC/100 WBC (Bld) [Ratio] 0 % 0-5 [facility] Oncology Visit Reporton 06-21 Oncology Visit Report [facility] [place] [facility] [address] [place] [address] OFFICE VISIT Date of Service: 07/10/24 1322 MR#: [id number] Acct: [id number] Name: BERNICE JUAN Rep #: [id number] : 1945 From: Carolyn Ruvalcaba NP KNOCKOUT MAN -C Age/Sex: 78/F [place] [facility] [place] Status: Signed HPI Subjective Date of Service 07/10/24 Chief Complaint Essential thrombocythemia on treatment History of Present Illness 78-year-old female with a medical history notable for morbid obesity, hypertension, dyslipidemia, disabling degenerative joint disease of the lower extremities presenting with an abnormal CBC notably persistent thrombocytosis. She has no known chronic infectious or inflammatory diseases. 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 Treatment: Hydrea started July 29, 2018 Interval History The patient is presenting to clinic today accompanied by for planned 3-month follow-up. Patient confirms adherence to oral therapy with Hydrea at this time, 1000 mg daily days on Wednesdays and . May be pursuing left knee replacement in August. [facility] Medical History Wears glasses Post-menopausal Depression Anxiety Ambulates with cane Walker as ambulation aid Arthritis Migraine headache History of IBS Non-smoker History of edema History of pain when walking Thrombocythemia Hx of fracture of leg Fracture of left hip requiring operative repair Vitamin D deficiency Osteopenia Melanoma in situ Hypothyroidism Hyperlipidemia Hypertension Surgical History History of total right knee replacement Hx of right cataract extraction Hx of left cataract extraction History of breast lump removal History of hip surgery Family History Father Rheumatoid arthritis Social History household members: none housing: [facility] Smoking Status: Never smoker second hand exposure: No alcohol intake: never substance use type: does not use justice/jehovah's witness: Spiritism seatbelt use: always do you feel safe at home: Yes ROS ROS Narrative Negative except as documented in the interval HPI Intake Vital Signs 02/22/24 14:10 07/10/24 13:25 07/10/24 13:45 Height 5 ft 5 in 5 ft 5 in 5 ft 5 in Weight: 196 lb BMI 32.5 BP 146/74 H 104/66 Blood Pressure Location Rt brachial Rt brachial Position Sitting Sitting Respiration 18 16 Pulse 48 L 46 L Pulse Source Monitor Monitor Temp 96.9 F L 97.8 F Temperature Source Temporal Artery Temporal Artery Pulse Oximetry (%) 97 98 Oxygen Delivery Method room air room air Intake Is patient in pain?: Yes (left knee and left shoulder pain ) Allergies promethazine HCl (From Phenergan) Allergy (Severe, Verified 07/10/24 13:44) Other Penicillins Adverse Reaction (Severe, Verified 07/10/24 13:44) Swelling red dye Adverse Reaction (Severe, Verified 07/10/24 13:44) Unknown Tetanus Vaccines and Toxoid Adverse Reaction (Intermediate, Verified 07/10/24 13:44) NEEDS FOLLOW-UP Medications ???Medication ???Instructions ???Recorded ???Confirmed ???Type levothyroxine 50 mcg tablet 50 mcg PO DAILY thyroid 08/04/13 0 07/10/24 History (Levoxyl) losartan 100 mg tablet 100 mg PO DAILY bp 06/06/18 History amlodipine 5 mg tablet 5 mg PO DAILY bp 07/21/18 07/10/24 History cholecalciferol (vitamin D3) 25 1,000 unit PO DAILY bones 10/26/19 07/10/24 History mcg (1,000 unit) tablet hydroxyurea 500 mg capsule 1,000 mg PO MOTUTHFRSA bladder 07/10/24 History acetaminophen 500 mg tablet 1,000 mg (2 x 500 mg) PO TID 09/2507/10/24 Rx inflammation 14 days #84 tabs famotidine 20 mg tablet 20 mg PO DAILY reflux #0 tabs 10/1107/10/24 Rx aspirin 81 mg chewable tablet 81 mg PO BID@08,1999 7 days #14 10/09/22 07/10/24 Rx tabs atenolol 50 mg tablet 50 mg PO DAILY@0800 30 days #30 07/10/24 Rx tabs ondansetron 4 mg disintegrating 8 mg (2 x 4 mg) PO Q8H PRN PRN 07/10/24 Rx tablet NAUSEA 30 days #90 tabs sennosides 8.6 mg-docusate sodium 2 tab PO BID@799,1999 30 days 07/10/24 Rx 50 mg tablet (Stool #120 tabs Softener-Stimulant Laxative) hydroxyurea 500 mg capsule 1,000 mg (2 x 500 mg) PO .COMPLEX 06/27/24 07/10/24 Rx #120 caps Have you fallen in the past year?: No Central Venous Access Central Venous Access: No Laboratory Tests 07/10/24 12:48 WBC 5.4 Hgb 13.0 Hct 38.9 MCV 109.6 H Plt Count 252 Laboratory Tests 07/10/24 12:48 Sodium 139 Potassium 4.0 Chloride 105 BUN 20 H Creatinine 0.97 Glucose 112 H Calcium 9.3 Total Bilirubin 0. (more content not included)... Normal [facility] Platelet countOrdered By: Lara Pate on 07-10-2024 Platelets (Bld) [#/Vol] 252 10*3/uL 150-450 [facility] Potassium measurement (mass/ volume)Ordered By: Umang Pate on 07-10-2024 Potassium (Unsp spec) [Mass/Vol] 4.0 mmol/L 3.3-5.1 [facility] RBC Auto (Bld) [#/Vol]Ordere d By: Umang Pate on 07-10-2024 RBC (Bld) [#/Vol] 3.55 10*6/uL Low 4.2-5.4 [facility] Serum creatinine measurement (mass/volume)Ordered By: Umang Pate on 07-10-2024 Creatinine [Mass/Vol] 0.97 mg/dL 0.70-1.20 [facility] Serum globulin measurementOr dered By: Umang Pate on 07-10-2024 Globulin (S) [Mass/Vol] 2.9 g/dL 2.2-4.2 [facility] Serum glucose measurement (m ass/volume)Ordered By: Umang Pate on 07-10-2024 Glucose [Mass/Vol] 112 mg/dL High 70-99 [facility] Serum or plasma alanine bey otransferase (ALT) measurementOrdered By: Umang Pate on 07-10-2024 ALT [Catalytic activity/Vol] 14 U/L <35 [facility] Serum or plasma albumin niels urement (mass/volume)Ordered By: Umang Pate on 07-10-2024 Albumin [Mass/Vol] 4.0 g/dL 3.4-4.8 [facility] Serum or plasma albumin/glob ulin mass ratioOrdered By: Umang Pate on 07-10-2024 Albumin/Globulin [Mass ratio] 1.4 {ratio} 0.9-2.4 [facility] Serum or plasma alkaline victor hugo sphatase measurementOrdered By: Umang Pate on 07-10-2024 ALP [Catalytic activity/Vol] 90 U/L 35-104 [facility] Serum or plasma calcium niels urement (mass/volume)Ordered By: Umang Pate on 07-10-2024 Calcium [Mass/Vol] 9.3 mg/dL 7.6-11.0 [facility] Serum or plasma urea nitroge n measurement (mass/volume)Ordered By: Umang Pate on 07-10-2024 Urea nitrogen [Mass/Vol] 20 mg/dL High 4-19 [facility] Sodium levelOrdered By: Aram Pate on 07-10-2024 Sodium [Moles/Vol] 139 mmol/L 133-145 [facility] Total proteinOrdered By: Seng Pate on 07-10-2024 Protein [Mass/Vol] 6.9 g/dL 5.9-8.4 [facility] White blood cell (WBC) count Ordered By: Umang Verashefali on 07-10-2024 WBC (Bld) [#/Vol] 5.4 10*3/uL 4.4-11.0 [facility] CBC W/Diff, Automatedon 12-0 Absolute Lymph 1.45 X10 3/uL Normal 0.83-4.51 [facility] Comment on above: Performed By: #### L 506.1001, L300.4310, L500.4050, L300.3900 #### [facility] [address] [place], [address] Absolute Neut 5.9 X10 3/uL Normal 2.0-7.7 [facility] Comment on above: Performed By: #### L 506.1001, L300.4310, L500.4050, L300.3900 #### [facility] [address] [place], [address] Basophils/100 WBC (Bld) 0.1 % Normal 0-1 [facility] Comment on above: Performed By: #### L 506.1001, L300.4310, L500.4050, L300.3900 #### [facility] [address] [place], [address] Eosinophils/100 WBC (Bld) 0.9 % Normal 0-5 [facility] Comment on above: Performed By: #### L 506.1001, L300.4310, L500.4050, L300.3900 #### [facility] [address] [place], [address] Erythrocyte distribution width (RBC) [Ratio] 14.6 % Normal 11.6-14.6 [facility] Comment on above: Performed By: #### L 506.1001, L300.4310, L500.4050, L300.3900 #### [facility] [address] [place], [address] Hematocrit (Bld) [Volume fraction] 40.3 % Normal 37-47 [facility] Comment on above: Performed By: #### L 506.1001, L300.4310, L500.4050, L300.3900 #### [facility] [address] [place], [address] Hemoglobin (Bld) [Mass/Vol] 13.3 g/dL Normal 12.0-15.0 [facility] Comment on above: Performed By: #### L 506.1001, L300.4310, L500.4050, L300.3900 #### [facility] [address] [place], [address] IG% 0.500 Normal 0.0-0.9 [facility] Comment on above: Result Comment: IG% - Immature Granulocytes (promyelocytes, myelocytes and metamyelocytes) > 1% indicates that a LEFT SHIFT is Present. Performed By: #### L 506.1001, L300.4310, L500.4050, L300.3900 #### [facility] [address] [place], [address] Lymphocytes/100 WBC (Bld) 17.7 % Low 19-41 [facility] Comment on above: Performed By: #### L 506.1001, L300.4310, L500.4050, L300.3900 #### [facility] [address] [place], [address] MCH (RBC) [Entitic mass] 36.2 pg High 27.0-32.0 [facility] Comment on above: Performed By: #### L 506.1001, L300.4310, L500.4050, L300.3900 #### [facility] [address] [place], [address] MCHC (RBC) [Mass/Vol] 33.0 g/dL Normal 32-36 [facility] Comment on above: Performed By: #### L 506.1001, L300.4310, L500.4050, L300.3900 #### [facility] [address] [place], [address] MCV (RBC) [Entitic vol] 109.8 fL High 81-99 [facility] Comment on above: Performed By: #### L 506.1001, L300.4310, L500.4050, L300.3900 #### [facility] [address] [place], [address] Monocytes/100 WBC (Bld) 8.1 % Normal 0-10 [facility] Comment on above: Performed By: #### L 506.1001, L300.4310, L500.4050, L300.3900 #### [facility] [address] [place], [address] Neutrophils/100 WBC (Bld) 72.7 % High 47-70 [facility] Comment on above: Performed By: #### L 506.1001, L300.4310, L500.4050, L300.3900 #### [facility] [address] [place], [address] Nucleated RBC (Bld) [#/Vol] 0 10*3/uL Normal 0-5 [facility] Comment on above: Performed By: #### L 506.1001, L300.4310, L500.4050, L300.3900 #### [facility] [address] [place], [address] Platelet mean volume (Bld) [Entitic vol] 10.6 fL Normal 6.2-12.0 [facility] Comment on above: Performed By: #### L 506.1001, L300.4310, L500.4050, L300.3900 #### [facility] [address] [place], [address] Platelets (Bld) [#/Vol] 300 10*3/uL Normal 150-450 [facility] Comment on above: Performed By: #### L 506.1001, L300.4310, L500.4050, L300.3900 #### [facility] [address] [place], [address] RBC (Bld) [#/Vol] 3.67 10*6/uL Low 4.2-5.4 [facility] Comment on above: Performed By: #### L 506.1001, L300.4310, L500.4050, L300.3900 #### [facility] [address] [place], [address] RDW SD 58.3 fl High 35.1-43.9 [facility] Comment on above: Performed By: #### L 506.1001, L300.4310, L500.4050, L300.3900 #### [facility] [address] [place], [address] WBC (Bld) [#/Vol] 8.2 10*3/uL Normal 4.4-11.0 [facility] Comment on above: Performed By: #### L 506.1001, L300.4310, L500.4050, L300.3900 #### [facility] [address] [place], [address] Comprehensive Metabolic Prof [facility] 02-22-2024 Albumin [Mass/Vol] 3.4 g/dL Normal 3.2-5.0 [facility] Comment on above: Performed By: #### L 506.1001, L300.4310, L500.4050, L300.3900 #### [facility] [address] [place], [address] Albumin/Globulin [Mass ratio] 1.0 {ratio} Normal 0.9-2.4 [facility] Comment on above: Performed By: #### L 506.1001, L300.4310, L500.4050, L300.3900 #### [facility] [address] [place], [address] ALK P 85 U/L Normal 45-117 [facility] Comment on above: Performed By: #### L 506.1001, L300.4310, L500.4050, L300.3900 #### [facility] [address] [place], [address] ALT [Catalytic activity/Vol] 29 U/L Normal 13-56 [facility] Comment on above: Performed By: #### L 506.1001, L300.4310, L500.4050, L300.3900 #### [facility] [address] [place], [address] AST [Catalytic activity/Vol] 25 U/L Normal 15-37 [facility] Comment on above: Result Comment: Mode rate Hemolysis, Result may be falsely increased. Performed By: #### L 506.1001, L300.4310, L500.4050, L300.3900 #### [facility] [address] [place], [address] Bilirubin [Mass/Vol] 0.70 mg/dL Normal 0.20-1.00 [facility] Comment on above: Result Comment: For patients on eltrombopag therapy, use of Dimension [place] TBIL is not recommended. Performed By: #### L 506.1001, L300.4310, L500.4050, L300.3900 #### [facility] [address] [place], [address] BUN/CRE 22.5 RATIO High 10-20 [facility] Comment on above: Performed By: #### L 506.1001, L300.4310, L500.4050, L300.3900 #### [facility] [address] [place], [address] CA,Total 8.9 mg/dL Normal 8.5-10.1 [facility] Comment on above: Performed By: #### L 506.1001, L300.4310, L500.4050, L300.3900 #### [facility] [address] [place], [address] Chloride [Moles/Vol] 109 mmol/L High 98-107 [facility] Comment on above: Performed By: #### L 506.1001, L300.4310, L500.4050, L300.3900 #### [facility] [address] [place], [address] CO2 [Moles/Vol] 27.0 mmol/L Normal 21.0-32.0 [facility] Comment on above: Performed By: #### L 506.1001, L300.4310, L500.4050, L300.3900 #### [facility] [address] [place], [address] Creatinine [Mass/Vol] 0.94 mg/dL Normal 0.55-1.02 [facility] Comment on above: Result Comment: The validity of the calculated GFR GFRAA in patients over 70 years has not been determined. Clinical correlation is essential. Performed By: #### L 506.1001, L300.4310, L500.4050, L300.3900 #### [facility] [address] [place], [address] ECRCL 52.57 ml/min Normal [facility] Comment on above: Performed By: #### L 506.1001, L300.4310, L500.4050, L300.3900 #### [facility] [address] [place], [address] EST GFR - AA 74 mL/min Normal >60 [facility] Comment on above: Result Comment: Afri can [place] GFR Calc Performed By: #### L 506.1001, L300.4310, L500.4050, L300.3900 #### [facility] [address] [place], [address] GAP 4 Low 5-15 [facility] Comment on above: Performed By: #### L 506.1001, L300.4310, L500.4050, L300.3900 #### [facility] [address] [place], [address] GFR/1.73 sq M.predicted among non-blacks MDRD (S/P/Bld) [Vol rate/Area] 61 mL/min/{1.73_m2} Normal >60 [facility] Comment on above: Result Comment: Non- GFR Calc Performed By: #### L 506.1001, L300.4310, L500.4050, L300.3900 #### [facility] [address] [place], [address] Globulin (S) [Mass/Vol] 3.5 g/dL Normal 2.2-4.2 [facility] Comment on above: Performed By: #### L 506.1001, L300.4310, L500.4050, L300.3900 #### [facility] [address] [place], [address] Glucose [Mass/Vol] 110 mg/dL High 74-106 [facility] Comment on above: Result Comment: Fast ing Glucose result from 100 to 125 mg/dL suggests IMPAIRED HOMEOSTASIS per A.D.A. criteria. Performed By: #### L 506.1001, L300.4310, L500.4050, L300.3900 #### [facility] [address] [place], [address] Potassium [Moles/Vol] 4.2 mmol/L Normal 3.5-5.1 [facility] Comment on above: Result Comment: Mode rate Hemolysis, Result may be falsely increased. Performed By: #### L 506.1001, L300.4310, L500.4050, L300.3900 #### [facility] [address] [place], [address] Sodium [Moles/Vol] 140 mmol/L Normal 136-145 [facility] Comment on above: Performed By: #### L 506.1001, L300.4310, L500.4050, L300.3900 #### [facility] [address] [place], [address] T PROT 6.9 g/dL Normal 6.4-8.2 [facility] Comment on above: Performed By: #### L 506.1001, L300.4310, L500.4050, L300.3900 #### [facility] [address] [place], [address] Urea nitrogen [Mass/Vol] 21 mg/dL High 7-18 [facility] Comment on above: Performed By: #### L 506.1001, L300.4310, L500.4050, L300.3900 #### [facility] [address] [place], [address] Oncology Visit Report Oncology Visit Report [facility] [address] 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 She has no known chronic infectious or inflammatory diseases. 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 Treatment: Hydrea started July 29, 2018 [facility] Medical History Wears glasses Post-menopausal Depression Anxiety Ambulates with cane Walker as ambulation aid Arthritis Migraine headache History of IBS Non-smoker History of edema History of pain when walking Thrombocythemia Hx of fracture of leg Fracture of left hip requiring operative repair Vitamin D deficiency Osteopenia Melanoma in situ Hypothyroidism Hyperlipidemia Hypertension Surgical History History of total right knee replacement Hx of right cataract extraction Hx of left cataract extraction History of breast lump removal History of hip surgery Family History Father Rheumatoid arthritis Social History household members: none housing: [facility] Smoking Status: Never smoker second hand exposure: No alcohol intake: never substance use type: does not use justice/jehovah's witness: Spiritism seatbelt use: always do you feel safe at home: Yes ROS Constitutional Constitutional: Reports systems reviewed and no addt'l complaints, except as documented, weight loss and other Details: Active weight loss, eliminating sweets ; Denies fever(s) Eyes Eyes: Reports systems reviewed and no addt'l complaints, except as documented; Denies change in vision ENT HEENT: Reports systems reviewed and no addt'l complaints, except as documented; Denies bleeding gums, epistaxis or headache(s) Cardiovascular Cardiovascular: Reports systems reviewed and no addt'l complaints, except as documented; Denies chest pain with activity Respiratory/Chest Respiratory/Chest: Reports systems reviewed and no addt'l complaints, except as documented; Denies dyspnea Gastrointestinal Gastrointestinal: Reports systems reviewed and no addt'l complaints, except as documented; Denies abdominal pain, change in bowel habits, hematochezia or melena Genitourinary Genitourinary: Reports systems reviewed and no addt'l complaints, except as documented; Denies hematuria Musculoskeletal Musculoskeletal: Reports systems reviewed and no addt'l complaints, except as documented, arthralgias, joint stiffness and limited range of motion Integumentary Integumentary: Reports systems reviewed and no addt'l complaints, except as documented Neurologic Neurologic: Reports systems reviewed and no addt'l complaints, except as documented; Denies headache(s), paresthesias or weakness Psychiatric Psychiatric: Reports systems reviewed and no addt'l complaints, except as documented Endocrine Endocrinology: Reports systems reviewed and no addt'l complaints, except as documented Hematologic/Lymphatic Hematologic/Lymphatic: Reports systems reviewed and no addt'l complaints, except as documented Allergic/Immunologic Allergic/Immunologic: Reports systems reviewed and no addt'l complaints, except as documented Intake Vital Signs 11/09/23 13:51 02/22/24 14:10 Height 5 ft 5 in 5 ft 5 in Weight: 89.584 kg 88.904 kg BMI 32.8 32.5 BP 150/74 H 146/74 H Blood Pressure Location Rt brachial Rt brachial Position Sitting Sitting Respiration 18 18 Pulse 49 L 48 L Pulse Source Monitor Monitor Temp 97.8 F 96.9 F L Temperature Source Temporal Artery Temporal Artery Pulse Oximetry (%) 97 97 Oxygen Delivery Method room air room air Intake Is patient in pain?: No Allergies promethazine HCl (From Phenergan) Allergy (Severe, Verified 02/22/24 14:12) Other Penicillins Adverse Reaction (Severe, Verified 02/22/24 14:12) Swelling red dye Adverse Reaction (Severe, Verified 02/22/24 14:12) Unknown Tetanus Vaccines and Toxoid Adverse Reaction (Intermediate, Verified 02/22/24 14:12) NEEDS FOLLOW-UP Medications ???Medication ???Instructions ???Recorded ???Confirmed ???Type levothyroxine 50 mcg tablet 50 mcg PO DAILY thyroid 08/04/13 02/22/24 History (Levoxyl) losartan 100 mg tablet 100 mg PO DA (more content not included)... Normal [facility] CBC W/Diff, Automatedon 01-20 Absolute Lymph 1.16 X10 3/uL Normal 0.83-4.51 [facility] Comment on above: Performed By: #### L 501.9520, L500.4050, L506.1000, L100.0100 #### [facility] [address] [place], [address] Absolute Neut 3.3 X10 3/uL Normal 2.0-7.7 [facility] Comment on above: Performed By: #### L 501.9520, L500.4050, L506.1000, L100.0100 #### [facility] [address] [place], [address] Basophils/100 WBC (Bld) 0.4 % Normal 0-1 [facility] Comment on above: Performed By: #### L 501.9520, L500.4050, L506.1000, L100.0100 #### [facility] [address] [place], [address] Eosinophils/100 WBC (Bld) 1.0 % Normal 0-5 [facility] Comment on above: Performed By: #### L 501.9520, L500.4050, L506.1000, L100.0100 #### [facility] [address] [place], [address] Erythrocyte distribution width (RBC) [Ratio] 14.3 % Normal 11.6-14.6 [facility] Comment on above: Performed By: #### L 501.9520, L500.4050, L506.1000, L100.0100 #### [facility] [address] [place], [address] Hematocrit (Bld) [Volume fraction] 38.3 % Normal 37-47 [facility] Comment on above: Performed By: #### L 501.9520, L500.4050, L506.1000, L100.0100 #### [facility] [address] [place], [address] Hemoglobin (Bld) [Mass/Vol] 12.8 g/dL Normal 12.0-15.0 [facility] Comment on above: Performed By: #### L 501.9520, L500.4050, L506.1000, L100.0100 #### [facility] [address] [place], [address] IG% 0.400 Normal 0.0-0.9 [facility] Comment on above: Result Comment: IG% - Immature Granulocytes (promyelocytes, myelocytes and metamyelocytes) > 1% indicates that a LEFT SHIFT is Present. Performed By: #### L 501.9520, L500.4050, L506.1000, L100.0100 #### [facility] [address] [place], [address] Lymphocytes/100 WBC (Bld) 22.9 % Normal 19-41 [facility] Comment on above: Performed By: #### L 501.9520, L500.4050, L506.1000, L100.0100 #### [facility] [address] [place], [address] MCH (RBC) [Entitic mass] 37.0 pg High 27.0-32.0 [facility] Comment on above: Performed By: #### L 501.9520, L500.4050, L506.1000, L100.0100 #### [facility] [address] [place], [address] MCHC (RBC) [Mass/Vol] 33.4 g/dL Normal 32-36 [facility] Comment on above: Performed By: #### L 501.9520, L500.4050, L506.1000, L100.0100 #### [facility] [address] [place], [address] MCV (RBC) [Entitic vol] 110.7 fL High 81-99 [facility] Comment on above: Performed By: #### L 501.9520, L500.4050, L506.1000, L100.0100 #### [facility] [address] [place], [address] Monocytes/100 WBC (Bld) 9.5 % Normal 0-10 [facility] Comment on above: Performed By: #### L 501.9520, L500.4050, L506.1000, L100.0100 #### [facility] [address] [place], [address] Neutrophils/100 WBC (Bld) 65.8 % Normal 47-70 [facility] Comment on above: Performed By: #### L 501.9520, L500.4050, L506.1000, L100.0100 #### [facility] [address] [place], [address] Nucleated RBC (Bld) [#/Vol] 0 10*3/uL Normal 0-5 [facility] Comment on above: Performed By: #### L 501.9520, L500.4050, L506.1000, L100.0100 #### [facility] [address] [place], [address] Platelet mean volume (Bld) [Entitic vol] 11.0 fL Normal 6.2-12.0 [facility] Comment on above: Performed By: #### L 501.9520, L500.4050, L506.1000, L100.0100 #### [facility] [address] [place], [address] Platelets (Bld) [#/Vol] 292 10*3/uL Normal 150-450 [facility] Comment on above: Performed By: #### L 501.9520, L500.4050, L506.1000, L100.0100 #### [facility] [address] [place], [address] RBC (Bld) [#/Vol] 3.46 10*6/uL Low 4.2-5.4 [facility] Comment on above: Performed By: #### L 501.9520, L500.4050, L506.1000, L100.0100 #### [facility] [address] [place], [address] RDW SD 57.3 fl High 35.1-43.9 [facility] Comment on above: Performed By: #### L 501.9520, L500.4050, L506.1000, L100.0100 #### [facility] [address] [place], [address] WBC (Bld) [#/Vol] 5.1 10*3/uL Normal 4.4-11.0 [facility] Comment on above: Performed By: #### L 501.9520, L500.4050, L506.1000, L100.0100 #### [facility] [address] [place], [address] Comprehensive Metabolic [facility] 01-31-2024 Albumin [Mass/Vol] 3.5 g/dL Normal 3.2-5.0 [facility] Comment on above: Performed By: #### L 501.9520, L500.4050, L506.1000, L100.0100 #### [facility] [address] [place], [address] Albumin/Globulin [Mass ratio] 1.0 {ratio} Normal 0.9-2.4 [facility] Comment on above: Performed By: #### L 501.9520, L500.4050, L506.1000, L100.0100 #### [facility] [address] [place], [address] ALK P 96 U/L Normal 45-117 [facility] Comment on above: Performed By: #### L 501.9520, L500.4050, L506.1000, L100.0100 #### [facility] [address] [place], [address] ALT [Catalytic activity/Vol] 19 U/L Normal 13-56 [facility] Comment on above: Performed By: #### L 501.9520, L500.4050, L506.1000, L100.0100 #### [facility] [address] [place], [address] AST [Catalytic activity/Vol] 33 U/L Normal 15-37 [facility] Comment on above: Result Comment: Mode rate Hemolysis, Result may be falsely increased. Performed By: #### L 501.9520, L500.4050, L506.1000, L100.0100 #### [facility] [address] [place], [address] Bilirubin [Mass/Vol] 0.50 mg/dL Normal 0.20-1.00 [facility] Comment on above: Result Comment: For patients on eltrombopag therapy, use of Dim[place] TBIL is not recommended. Performed By: #### L 501.9520, L500.4050, L506.1000, L100.0100 #### [facility] [address] [place], [address] BUN/CRE 23.5 RATIO High 10-20 [facility] Comment on above: Performed By: #### L 501.9520, L500.4050, L506.1000, L100.0100 #### [facility] [address] [place], [address] CA,Total 9.1 mg/dL Normal 8.5-10.1 [facility] Comment on above: Performed By: #### L 501.9520, L500.4050, L506.1000, L100.0100 #### [facility] [address] [place], [address] Chloride [Moles/Vol] 109 mmol/L High 98-107 [facility] Comment on above: Performed By: #### L 501.9520, L500.4050, L506.1000, L100.0100 #### [facility] [address] [place], [address] CO2 [Moles/Vol] 24.0 mmol/L Normal 21.0-32.0 [facility] Comment on above: Performed By: #### L 501.9520, L500.4050, L506.1000, L100.0100 #### [facility] [address] [place], [address] Creatinine [Mass/Vol] 0.94 mg/dL Normal 0.55-1.02 [facility] Comment on above: Result Comment: The validity of the calculated GFR GFRAA in patients over 70 years has not been determined. Clinical correlation is essential. Performed By: #### L 501.9520, L500.4050, L506.1000, L100.0100 #### [facility] [address] [place], [address] EST GFR - AA 74 mL/min Normal >60 [facility] Comment on above: Result Comment: Afri can [place] GFR Calc Performed By: #### L 501.9520, L500.4050, L506.1000, L100.0100 #### [facility] [address] [place], [address] GAP 9 Normal 5-15 [facility] Comment on above: Performed By: #### L 501.9520, L500.4050, L506.1000, L100.0100 #### [facility] [address] [place], [address] GFR/1.73 sq M.predicted among non-blacks MDRD (S/P/Bld) [Vol rate/Area] 61 mL/min/{1.73_m2} Normal >60 [facility] Comment on above: Result Comment: Non- GFR Calc Performed By: #### L 501.9520, L500.4050, L506.1000, L100.0100 #### [facility] [address] [place], [address] Globulin (S) [Mass/Vol] 3.6 g/dL Normal 2.2-4.2 [facility] Comment on above: Performed By: #### L 501.9520, L500.4050, L506.1000, L100.0100 #### [facility] [address] [place], [address] Glucose [Mass/Vol] 108 mg/dL High 74-106 [facility] Comment on above: Result Comment: Fast ing Glucose result from 100 to 125 mg/dL suggests IMPAIRED HOMEOSTASIS per A.D.A. criteria. Performed By: #### L 501.9520, L500.4050, L506.1000, L100.0100 #### [facility] [address] [place], [address] Potassium [Moles/Vol] 4.1 mmol/L Normal 3.5-5.1 [facility] Comment on above: Result Comment: Mode rate Hemolysis, Result may be falsely increased. Performed By: #### L 501.9520, L500.4050, L506.1000, L100.0100 #### [facility] [address] [place], [address] Sodium [Moles/Vol] 141 mmol/L Normal 136-145 [facility] Comment on above: Performed By: #### L 501.9520, L500.4050, L506.1000, L100.0100 #### [facility] [address] [place], [address] T PROT 7.1 g/dL Normal 6.4-8.2 [facility] Comment on above: Performed By: #### L 501.9520, L500.4050, L506.1000, L100.0100 #### [facility] [address] [place], [address] Urea nitrogen [Mass/Vol] 22 mg/dL High 7-18 [facility] Comment on above: Performed By: #### L 501.9520, L500.4050, L506.1000, L100.0100 #### [facility] [address] [place], [address] Thyroid Stim Hormone (TSH)on 01-31-2024 TSH 1.630 uIU/mL Normal 0.358-3.74 0 [facility] Comment on above: Performed By: #### L 501.9520, L500.4050, L506.1000, L100.0100 #### [facility] [address] [place], [address] Vitamin D,25 Hydroxyon 01-30 Vitamin D 25-OH 20.8 ng/mL Normal [facility] Comment on above: Result Comment: [place] min D 25(OH) Status Range Deficiency <20 ng/mL (50nmol/L) Insufficiency 20 - 30 ng/mL (50 - 75 nmol/L) Sufficiency 30 - 100 ng/mL (75 - 250 nmol/L) Toxicity >100 ng/mL (>250 nmol/L) Performed By: #### L 501.9520, L500.4050, L506.1000, L100.0100 #### [facility] [address] [place], [address] CBC W/Diff, Automatedon 10-21 Anisocytosis Ql (Bld) 1+ Normal [facility] Comment on above: Performed By: #### L 100.0100, L500.4050 ####[facility] [address] [place], [address] Comprehensive Metabolic Prof ilon 11-09-2023 Albumin [Mass/Vol] 3.5 g/dL Normal 3.2-5.0 [facility] Comment on above: Performed By: #### L 100.0100, L500.4050 ####[facility] [address] [place], [address] Albumin/Globulin [Mass ratio] 0.9 {ratio} Normal 0.9-2.4 [facility] Comment on above: Performed By: #### L 100.0100, L500.4050 ####[facility] [address] [place], [address] ALK P 98 U/L Normal 45-117 [facility] Comment on above: Performed By: #### L 100.0100, L500.4050 ####[facility] [address] [place], [address] ALT [Catalytic activity/Vol] 19 U/L Normal 13-56 [facility] Comment on above: Performed By: #### L 100.0100, L500.4050 ####[facility] [address] [place], [address] AST [Catalytic activity/Vol] 29 U/L Normal 15-37 [facility] Comment on above: Performed By: #### L 100.0100, L500.4050 ####[facility] [address] [place], [address] Bilirubin [Mass/Vol] 0.50 mg/dL Normal 0.20-1.00 [facility] Comment on above: Result Comment: For patients on eltrombopag therapy, use of [place] TBIL is not recommended. Performed By: #### L 100.0100, L500.4050 ####[facility] [address] [place], [address] BUN/CRE 18.9 RATIO Normal 10-20 [facility] Comment on above: Performed By: #### L 100.0100, L500.4050 ####[facility] [address] [place], [address] CA,Total 9.2 mg/dL Normal 8.5-10.1 [facility] Comment on above: Performed By: #### L 100.0100, L500.4050 ####[facility] [address] [place], [address] Chloride [Moles/Vol] 108 mmol/L High 98-107 [facility] Comment on above: Performed By: #### L 100.0100, L500.4050 ####[facility] [address] [place], [address] CO2 [Moles/Vol] 25.0 mmol/L Normal 21.0-32.0 [facility] Comment on above: Performed By: #### L 100.0100, L500.4050 ####[facility] [address] [place], [address] Creatinine [Mass/Vol] 1.06 mg/dL High 0.55-1.02 [facility] Comment on above: Result Comment: The validity of the calculated GFR GFRAA in patients over 70 years has not been determined. Clinical correlation is essential. Performed By: #### L 100.0100, L500.4050 ####[facility] [address] [place], [address] ECRCL 46.37 ml/min Normal [facility] Comment on above: Performed By: #### L 100.0100, L500.4050 ####[facility] [address] [place], [address] EST GFR - AA 64 mL/min Normal >60 [facility] Comment on above: Result Comment: Afri can [place] GFR Calc Performed By: #### L 100.0100, L500.4050 ####[facility] [address] [place], [address] GAP 7 Normal 5-15 [facility] Comment on above: Performed By: #### L 100.0100, L500.4050 ####[facility] [address] [place], [address] GFR/1.73 sq M.predicted among non-blacks MDRD (S/P/Bld) [Vol rate/Area] 53 mL/min/{1.73_m2} Low >60 [facility] Comment on above: Result Comment: Non- GFR Calc Performed By: #### L 100.0100, L500.4050 ####[facility] [address] [place], [address] Globulin (S) [Mass/Vol] 3.7 g/dL Normal 2.2-4.2 [facility] Comment on above: Performed By: #### L 100.0100, L500.4050 ####[facility] [address] [place], [address] Glucose [Mass/Vol] 120 mg/dL High 74-106 [facility] Comment on above: Result Comment: Fast ing Glucose result from 100 to 125 mg/dL suggests IMPAIRED HOMEOSTASIS per A.D.A. criteria. Performed By: #### L 100.0100, L500.4050 ####[facility] [address] [place], [address] Potassium [Moles/Vol] 3.7 mmol/L Normal 3.5-5.1 [facility] Comment on above: Performed By: #### L 100.0100, L500.4050 ####[facility] [address] [place], [address] Sodium [Moles/Vol] 140 mmol/L Normal 136-145 [facility] Comment on above: Performed By: #### L 100.0100, L500.4050 ####[facility] [address] [place], [address] T PROT 7.2 g/dL Normal 6.4-8.2 [facility] Comment on above: Performed By: #### L 100.0100, L500.4050 ####[facility] [address] [place], [address] Urea nitrogen [Mass/Vol] 20 mg/dL High 7-18 [facility] Comment on above: Performed By: #### L 100.0100, L500.4050 ####[facility] [address] [place], [address] Laboratory - Hematology and Cell countsOrdered By: Umang Pate on 11-09-2023 Anisocytosis Ql (Bld) 1+ [facility] Oncology Visit Reporton 10-21 Oncology Visit Report [facility] [place] [facility] [address] [place] [address] OFFICE VISIT Date of Service: 11/09/23 1351 MR#: [id number] Acct: [id number] Name: BERNICE JUAN Rep #: [id number] : 1945 From: Umang Pate MD Age/Sex: 78/F Location: [facility] [place] Status: Signed HPI Subjective Date of Service 11/09/23 Chief Complaint Essential thrombocythemia on treatment History of Present Illness 77-year-old female with a medical history notable for morbid obesity, hypertension, dyslipidemia, disabling degenerative joint disease of the lower extremities presenting with an abnormal CBC notably persistent thrombocytosis. She has no known chronic infectious or inflammatory diseases. 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 Treatment: Hydrea started July 29, 2018 [facility] Medical History Wears glasses Post-menopausal Depression Anxiety Ambulates with cane Walker as ambulation aid Arthritis Migraine headache History of IBS Non-smoker History of edema History of pain when walking Thrombocythemia Hx of fracture of leg Fracture of left hip requiring operative repair Vitamin D deficiency Osteopenia Melanoma in situ Hypothyroidism Hyperlipidemia Hypertension Surgical History History of total right knee replacement Hx of right cataract extraction Hx of left cataract extraction History of breast lump removal History of hip surgery Family History Father Rheumatoid arthritis Social History household members: none housing: condominium Smoking Status: Never smoker second hand exposure: No alcohol intake: never substance use type: does not use justice/jehovah's witness: Spiritism seatbelt use: always do you feel safe at home: Yes ROS Constitutional Constitutional: Reports systems reviewed and no addt'l complaints, except as documented, weight loss and other Details: Active weight loss, eliminating sweets ; Denies fever(s) Eyes Eyes: Reports systems reviewed and no addt'l complaints, except as documented; Denies change in vision ENT HEENT: Reports systems reviewed and no addt'l complaints, except as documented; Denies bleeding gums, epistaxis or headache(s) Cardiovascular Cardiovascular: Reports systems reviewed and no addt'l complaints, except as documented; Denies chest pain with activity Respiratory/Chest Respiratory/Chest: Reports systems reviewed and no addt'l complaints, except as documented; Denies dyspnea Gastrointestinal Gastrointestinal: Reports systems reviewed and no addt'l complaints, except as documented; Denies abdominal pain, change in bowel habits, hematochezia or melena Genitourinary Genitourinary: Reports systems reviewed and no addt'l complaints, except as documented; Denies hematuria Musculoskeletal Musculoskeletal: Reports systems reviewed and no addt'l complaints, except as documented, arthralgias, joint stiffness and limited range of motion Integumentary Integumentary: Reports systems reviewed and no addt'l complaints, except as documented Neurologic Neurologic: Reports systems reviewed and no addt'l complaints, except as documented; Denies headache(s), paresthesias or weakness Psychiatric Psychiatric: Reports systems reviewed and no addt'l complaints, except as documented Endocrine Endocrinology: Reports systems reviewed and no addt'l complaints, except as documented Hematologic/Lymphatic Hematologic/Lymphatic: Reports systems reviewed and no addt'l complaints, except as documented Allergic/Immunologic Allergic/Immunologic: Reports systems reviewed and no addt'l complaints, except as documented Intake Vital Signs 08/05/23 14:39 11/09/23 13:51 Height 5 ft 5 in 5 ft 5 in Weight: 87.997 kg 89.584 kg BMI 32.3 32.8 BP 173/81 H 150/74 H Blood Pressure Location Rt brachial Rt brachial Position Sitting Sitting Respiration 18 18 Pulse 55 L 49 L Pulse Source Monitor Monitor Temp 98.0 F 97.8 F Temperature Source Temporal Artery Temporal Artery Pulse Oximetry (%) 98 97 Oxygen Delivery Method room air room air Intake Is patient in pain?: No Allergies promethazine HCl (From Phenergan) Allergy (Severe, Verified 11/09/23 13:57) Other Penicillins Adverse Reaction (Severe, Verified 11/09/23 13:57) Swelling red dye Adverse Reaction (Severe, Verified 11/09/23 13:57) Unknown Tetanus Vaccines and Toxoid Adverse Reaction (Intermediate, Verified 11/09/23 13:57) NEEDS FOLLOW-UP Medications ???Medication ???Instructions ???Recorded ???Confirmed ???Type levothyroxine 50 mcg tablet 50 mcg PO DAILY thyroid 08/04/13 11/09/23 History (Levoxyl) losartan 100 mg tablet 100 mg PO REJI (more content not included)... Normal [facility] Serum or plasma thyroid stim ulating hormone (TSH) measurement (units/volume)Ordered By: Umang Pate on 08-05-2023 TSH Qn 1.06 uIU/mL 0.358-3.74 [facility] Absolute lymphocyte countOrd ered By: Dago Emery on 01-25-2023 Lymphocytes Auto (Unsp spec) [#/Vol] 1.06 10*3/uL 0.83-4.51 [facility] Basophil percentageOrdered B y: Dago Emery on 01-25-2023 Basophils/100 WBC (Bld) 0.2 % 0-1 [facility] Bilirubin [Mass/Vol] 0.40 mg/dL 0.20-1.00 [facility] Comment on above: For patients on eltr ombopag therapy, use of Dim[place] TBIL is not recommended. Chloride [Moles/Vol] 108 mmol/L 98-107 [facility] Eosinophils/100 WBC (Bld) 1.1 % 0-5 [facility] Glucose [Mass/Vol] 116 mg/dL 74-106 [facility] Comment on above: Fasting Glucose resu lt from 100 to 125 mg/dL suggests IMPAIRED HOMEOSTASIS per A.D.A. criteria. Neutrophils (Bld) [#/Vol] 2.8 10*3/uL 2.0-7.7 [facility] Neutrophils/100 WBC (Bld) 64.3 % 47-70 [facility] Potassium [Moles/Vol] 3.6 mmol/L 3.5-5.1 [facility] Protein [Mass/Vol] 7.1 g/dL 6.4-8.2 [facility] Sodium [Moles/Vol] 141 mmol/L 136-145 [facility] WBC (Bld) [#/Vol] 4.4 10*3/uL 4.4-11.0 [facility] Blood erythrocytes count (nu mber/volume)Ordered By: Dago Emery on 01-25-2023 RBC (Bld) [#/Vol] 3.25 10*6/uL 4.2-5.4 [facility] Blood hemoglobin measurement (mass/volume)Ordered By: Dago Emery on 01-25-2023 Hemoglobin (Bld) [Mass/Vol] 11.8 g/dL 12.0-15.0 [facility] Blood lymphocytes/100 leukoc ytesOrdered By: Dago Emery on 01-25-2023 Lymphocytes/100 WBC (Bld) 24.1 % 19-41 [facility] Blood manual differential co mment interpretation (narrative result)Ordered By: Dago Emery on 01-25-2023 Manual differential comment Jack (Bld) [Interp] SCANNED [facility] Blood monocytes/100 leukocyt esOrdered By: Dago Emery on 01-25-2023 Monocytes/100 WBC (Bld) 9.8 % 0-10 [facility] Blood platelet mean volumeOr dered By: Dago Emery on 01-25-2023 Platelet mean volume (Bld) [Entitic vol] 11.2 fL 6.2-12.0 [facility] Determination of erythrocyte mean corpuscular volume (MCV)Ordered By: Dago Emery on 01-25-2023 MCV (RBC) [Entitic vol] 113.8 fL 81-99 [facility] Hematocrit Auto (Bld) [Volum e fraction]Ordered By: Dago Emery on 01-25-2023 Hematocrit (Bld) [Volume fraction] 37.0 % 37-47 [facility] - Chemistry and C hemistry - challengeOrdered By: Dago Emery on 01-25-2023 ALP [Catalytic activity/Vol] 82 U/L 45-117 [facility] ALT [Catalytic activity/Vol] 15 U/L 13-56 [facility] CO2 [Moles/Vol] 26.0 mmol/L 21.0-32.0 [facility] Globulin (S) [Mass/Vol] 3.8 g/dL 2.2-4.2 [facility] Urea nitrogen/Creatinine [Mass ratio] 18.6 mg/mg 10-20 [facility] - Hematology and Cell countsOrdered By: Dago Emery on 01-25-2023 Anisocytosis Ql (Bld) 2+ [facility] Erythrocyte distribution width (RBC) [Entitic vol] 65.5 fL 35.1-43.9 [facility] Erythrocyte distribution width (RBC) [Ratio] 15.7 % 11.6-14.6 [facility] Immature granulocytes/100 WBC (Bld) 0.500 % 0.0-0.9 [facility] Comment on above: IG% - Immature Granu locytes (promyelocytes, myelocytes and metamyelocytes) > 1% indicates that a LEFT SHIFT is Present. MCH (RBC) [Entitic mass] 36.3 pg 27.0-32.0 [facility] Nucleated RBC/100 WBC (Bld) [Ratio] 0 % 0-5 [facility] MCHC Auto (RBC) [Mass/Vol]Or dered By: Dago Emery on 01-25-2023 MCHC (RBC) [Mass/Vol] 31.9 g/dL 32-36 [facility] Macrocytes detectionOrdered By: Dago Emery on 01-25-2023 Macrocytes Ql (Bld) 2+ [facility] No Panel InformationOrdered By: Dago Emery on 01-25-2023 Estimated GFR (MDRD) Amer 67 mL/min >60 [facility] Comment on above: GFR Calc Estimated GFR (MDRD) Non-Af Amer 56 mL/min >60 [facility] Comment on above: Non- GFR Calc Thyroid Stimulating Hormone (TSH) 1.65 uIU/mL 0.358-3.74 [facility] Vitamin D 25-Hydroxy 39.0 ng/mL [facility] Comment on above: Vitamin D 25(OH) Sta tus Range Deficiency <20 ng/mL (50nmol/L) Insufficiency 20 - 30 ng/mL (50 - 75 nmol/L) Sufficiency 30 - 100 ng/mL (75 - 250 nmol/L) Toxicity >100 ng/mL (>250 nmol/L) Platelets bldOrdered By: Dago Emery on 01-25-2023 Platelets (Bld) [#/Vol] 265 10*3/uL 150-450 [facility] Serum or plasma albumin niels urement (mass/volume)Ordered By: Dago Emery on 01-25-2023 Albumin [Mass/Vol] 3.3 g/dL 3.2-5.0 [facility] Serum or plasma albumin/glob ulin mass ratioOrdered By: Dago Emery on 01-25-2023 Albumin/Globulin [Mass ratio] 0.9 {ratio} 0.9-2.4 [facility] Serum or plasma calcium niels urement (mass/volume)Ordered By: Dago Emery on 01-25-2023 Calcium [Mass/Vol] 9.1 mg/dL 8.5-10.1 [facility] Serum or plasma creatinine m easurement (mass/volume)Ordered By: Dago Emery on 01-25-2023 Creatinine [Mass/Vol] 1.02 mg/dL 0.55-1.02 [facility] Comment on above: The validity of the calculated GFR & GFRAA in patients over 70 years has not been determined. Clinical correlation is essential. Serum or plasma urea nitroge n measurement (mass/volume)Ordered By: Dago Emery on 01-25-2023 Urea nitrogen [Mass/Vol] 19 mg/dL 7-18 [facility] Thin prep Papanicolaou smear with manual screeningOrdered By: Dago Emery on 01-25-2023 Thin prep Papanicolaou smear with manual screening 25 U/L 15-37 [facility] Thin prep Papanicolaou smear with manual screening 7 5-15 [facility] Absolute lymphocyte countOrd ered By: Carolyn Ruvalcaba on 11-04-2022 Lymphocytes Auto (Unsp spec) [#/Vol] 1.04 10*3/uL 0.83-4.51 [facility] Basophil percentageOrdered B y: Carolyn Ruvalcaba on 11-04-2022 Basophils/100 WBC (Bld) 0.5 % 0-1 [facility] Bilirubin [Mass/Vol] 0.50 mg/dL 0.20-1.00 [facility] Comment on above: For patients on eltr ombopag therapy, use of [facility] [place] TBIL is not recommended. Chloride [Moles/Vol] 108 mmol/L 98-107 [facility] Eosinophils/100 WBC (Bld) 1.1 % 0-5 [facility] Glucose [Mass/Vol] 127 mg/dL 74-106 [facility] Comment on above: Fasting Glucose resu lt greater than or equal to 126 mg/dL suggests DIABETES MELLITUS per A.D.A. criteria. Neutrophils (Bld) [#/Vol] 4.6 10*3/uL 2.0-7.7 [facility] Neutrophils/100 WBC (Bld) 74.8 % 47-70 [facility] Potassium [Moles/Vol] 3.8 mmol/L 3.5-5.1 [facility] Protein [Mass/Vol] 7.4 g/dL 6.4-8.2 [facility] Sodium [Moles/Vol] 140 mmol/L 136-145 [facility] WBC (Bld) [#/Vol] 6.2 10*3/uL 4.4-11.0 [facility] Blood erythrocytes count (nu mber/volume)Ordered By: Carolyn Ruvalcaba on 11-04-2022 RBC (Bld) [#/Vol] 3.43 10*6/uL 4.2-5.4 [facility] Blood hemoglobin measurement (mass/volume)Ordered By: Carolyn Ruvalcaba on 11-04-2022 Hemoglobin (Bld) [Mass/Vol] 12.0 g/dL 12.0-15.0 [facility] Blood lymphocytes/100 leukoc ytesOrdered By: Carolyn Ruvalcaba on 11-04-2022 Lymphocytes/100 WBC (Bld) 16.8 % 19-41 [facility] Blood monocytes/100 leukocyt esOrdered By: Carolyn NicolePeg on 11-04-2022 Monocytes/100 WBC (Bld) 6.5 % 0-10 [facility] Blood platelet mean volumeOr dered By: Carolyn Ruvalcaba on 11-04-2022 Platelet mean volume (Bld) [Entitic vol] 10.0 fL 6.2-12.0 [facility] Determination of erythrocyte mean corpuscular volume (MCV)Ordered By: Carolyn Ruvalcaba on 11-04-2022 MCV (RBC) [Entitic vol] 110.5 fL 81-99 [facility] Hematocrit Auto (Bld) [Volum e fraction]Ordered By: Carolyn Ruvalcaba on 11-04-2022 Hematocrit (Bld) [Volume fraction] 37.9 % 37-47 [facility] - Chemistry and C hemistry - challengeOrdered By: [facility] ALP [Catalytic activity/Vol] 89 U/L 45-117 [facility] ALT [Catalytic activity/Vol] 18 U/L 13-56 [facility] CO2 [Moles/Vol] 25.0 mmol/L 21.0-32.0 [facility] Globulin (S) [Mass/Vol] 4.1 g/dL 2.2-4.2 [facility] Urea nitrogen/Creatinine [Mass ratio] 14.8 mg/mg 10-20 [facility] - Hematology and Cell countsOrdered By: [facility] on 11-04-2022 Erythrocyte distribution width (RBC) [Entitic vol] 62.5 fL 35.1-43.9 [facility] Erythrocyte distribution width (RBC) [Ratio] 15.6 % 11.6-14.6 [facility] Immature granulocytes/100 WBC (Bld) 0.300 % 0.0-0.9 [facility] Comment on above: IG% - Immature Granu locytes (promyelocytes, myelocytes and metamyelocytes) > 1% indicates that a LEFT SHIFT is Present. MCH (RBC) [Entitic mass] 35.0 pg 27.0-32.0 [facility] Nucleated RBC/100 WBC (Bld) [Ratio] 0 % 0-5 [facility] MCHC Auto (RBC) [Mass/Vol]Or dered By: Carolyn Ruvalcaba on 11-04-2022 MCHC (RBC) [Mass/Vol] 31.7 g/dL 32-36 [facility] No Panel InformationOrdered By: Carolyn Ruvalcaba on 11-04-2022 Estimated Creatinine Clearance Calc 41.46 ml/min [facility] Estimated GFR (MDRD) Amer 73 mL/min >60 [facility] Comment on above: GFR Calc Estimated GFR (MDRD) Non-Af Amer 60 mL/min >60 [facility] Comment on above: Non- GFR Calc Platelets bldOrdered By: Nayan Ruvalcaba on 11-04-2022 Platelets (Bld) [#/Vol] 298 10*3/uL 150-450 [facility] Serum or plasma albumin niels urement (mass/volume)Ordered By: Carolyn Ruvalcaba on 11-04-2022 Albumin [Mass/Vol] 3.3 g/dL 3.2-5.0 [facility] Serum or plasma albumin/glob ulin mass ratioOrdered By: Carolyn Ruvalcaba on 11-04-2022 Albumin/Globulin [Mass ratio] 0.8 {ratio} 0.9-2.4 [facility] Serum or plasma calcium niels urement (mass/volume)Ordered By: Carolyn Ruvalcaba on 11-04-2022 Calcium [Mass/Vol] 9.2 mg/dL 8.5-10.1 [facility] Serum or plasma creatinine m easurement (mass/volume)Ordered By: Carolyn Ruvalcaba on 11-04-2022 Creatinine [Mass/Vol] 0.95 mg/dL 0.55-1.02 [facility] Comment on above: The validity of the calculated GFR & GFRAA in patients over 70 years has not been determined. Clinical correlation is essential. Serum or plasma urea nitroge n measurement (mass/volume)Ordered By: Carolyn Ruvalcaba on 11-04-2022 Urea nitrogen [Mass/Vol] 14 mg/dL 7-18 [facility] Thin prep Papanicolaou smear with manual screeningOrdered By: Carolyn Ruvalcaba on 11-04-2022 Thin prep Papanicolaou smear with manual screening 19 U/L 15-37 [facility] Thin prep Papanicolaou smear with manual screening 7 5-15 [facility] Absolute lymphocyte countOrd ered By: Dago Emery on 10-10-2022 Lymphocytes Auto (Unsp spec) [#/Vol] 1.27 10*3/uL 0.83-4.51 [facility] Basophil percentageOrdered B y: Dago Emery on 10-10-2022 Basophils/100 WBC (Bld) 0.4 % 0-1 [facility] Eosinophils/100 WBC (Bld) 5.2 % 0-5 [facility] Neutrophils (Bld) [#/Vol] 3.2 10*3/uL 2.0-7.7 [facility] Neutrophils/100 WBC (Bld) 61.5 % 47-70 [facility] WBC (Bld) [#/Vol] 5.2 10*3/uL 4.4-11.0 [facility] Chloride [Moles/Vol] 109 mmol/L 98-107 [facility] Glucose [Mass/Vol] 101 mg/dL 74-106 [facility] Comment on above: Fasting Glucose resu lt from 100 to 125 mg/dL suggests IMPAIRED HOMEOSTASIS per A.D.A. criteria. Potassium [Moles/Vol] 3.9 mmol/L 3.5-5.1 [facility] Sodium [Moles/Vol] 138 mmol/L 136-145 [facility] Blood erythrocytes count (nu mber/volume)Ordered By: Dago Emery on 10-10-2022 RBC (Bld) [#/Vol] 2.93 10*6/uL 4.2-5.4 [facility] Blood hemoglobin measurement (mass/volume)Ordered By: Dago Emery on 10-10-2022 Hemoglobin (Bld) [Mass/Vol] 10.5 g/dL 12.0-15.0 [facility] Blood lymphocytes/100 leukoc ytesOrdered By: Dago Emery on 10-10-2022 Lymphocytes/100 WBC (Bld) 24.4 % 19-41 [facility] Blood monocytes/100 leukocyt esOrdered By: Dago Emery on 10-10-2022 Monocytes/100 WBC (Bld) 8.1 % 0-10 [facility] Blood platelet mean volumeOr dered By: Dago Emery on 10-10-2022 Platelet mean volume (Bld) [Entitic vol] 10.3 fL 6.2-12.0 [facility] Determination of erythrocyte mean corpuscular volume (MCV)Ordered By: Dago Emery on 10-10-2022 MCV (RBC) [Entitic vol] 109.6 fL 81-99 [facility] Hematocrit Auto (Bld) [Volum e fraction]Ordered By: Dago Emery on 10-10-2022 Hematocrit (Bld) [Volume fraction] 32.1 % 37-47 [facility] - Chemistry and C hemistry - challengeOrdered By: Dago Emery on 10-10-2022 CO2 [Moles/Vol] 24.0 mmol/L 21.0-32.0 [facility] Urea nitrogen/Creatinine [Mass ratio] 24.1 mg/mg 10-20 [facility] - Hematology and Cell countsOrdered By: Dago Emery on 10-10-2022 Erythrocyte distribution width (RBC) [Entitic vol] 54.4 fL 35.1-43.9 [facility] Erythrocyte distribution width (RBC) [Ratio] 13.9 % 11.6-14.6 [facility] Immature granulocytes/100 WBC (Bld) 0.400 % 0.0-0.9 [facility] Comment on above: IG% - Immature Granu locytes (promyelocytes, myelocytes and metamyelocytes) > 1% indicates that a LEFT SHIFT is Present. MCH (RBC) [Entitic mass] 35.8 pg 27.0-32.0 [facility] Nucleated RBC/100 WBC (Bld) [Ratio] 0 % 0-5 [facility] MCHC Auto (RBC) [Mass/Vol]Or dered By: Dago Emery on 10-10-2022 MCHC (RBC) [Mass/Vol] 32.7 g/dL 32-36 [facility] No Panel InformationOrdered By: Dago Emery on 10-10-2022 Estimated Creatinine Clearance Calc 41.05 ml/min [facility] Estimated GFR (MDRD) Amer 69 mL/min >60 [facility] Comment on above: GFR Calc Estimated GFR (MDRD) Non-Af Amer 57 mL/min >60 [facility] Comment on above: Non- GFR Calc Platelets bldOrdered By: Dago Emery on 10-10-2022 Platelets (Bld) [#/Vol] 409 10*3/uL 150-450 [facility] Serum or plasma calcium niels urement (mass/volume)Ordered By: Dago Emery on 10-10-2022 Calcium [Mass/Vol] 8.7 mg/dL 8.5-10.1 [facility] Serum or plasma creatinine m easurement (mass/volume)Ordered By: Dago Emery on 10-10-2022 Creatinine [Mass/Vol] 1.00 mg/dL 0.55-1.02 [facility] Comment on above: The validity of the calculated GFR & GFRAA in patients over 70 years has not been determined. Clinical correlation is essential. Serum or plasma urea nitroge n measurement (mass/volume)Ordered By: Dago Emery on 10-10-2022 Urea nitrogen [Mass/Vol] 24 mg/dL 7-18 [facility] Thin prep Papanicolaou smear with manual screeningOrdered By: Dago Emery on 10-10-2022 Thin prep Papanicolaou smear with manual screening 5 5-15 [facility] Absolute lymphocyte countOrd ered By: Dr. Pate on 08-05-2022 Lymphocytes Auto (Unsp spec) [#/Vol] 1.00 10*3/uL 0.83-4.51 [facility] Basophil percentageOrdered B y: Dr. Pate on 08-05-2022 Basophils/100 WBC (Bld) 0.6 % 0-1 [facility] Chloride [Moles/Vol] 111 mmol/L 98-107 [facility] Eosinophils/100 WBC (Bld) 2.5 % 0-5 [facility] Glucose [Mass/Vol] 116 mg/dL 74-106 [facility] Comment on above: Fasting Glucose resu lt from 100 to 125 mg/dL suggests IMPAIRED HOMEOSTASIS per A.D.A. criteria. Neutrophils (Bld) [#/Vol] 3.5 10*3/uL 2.0-7.7 [facility] Neutrophils/100 WBC (Bld) 67.0 % 47-70 [facility] Potassium [Moles/Vol] 3.9 mmol/L 3.5-5.1 [facility] Comment on above: Slight Hemolysis, Re sult may be falsely increased. Sodium [Moles/Vol] 141 mmol/L 136-145 [facility] WBC (Bld) [#/Vol] 5.3 10*3/uL 4.4-11.0 [facility] Blood erythrocytes count (nu mber/volume)Ordered By: Dr. Pate on 08-05-2022 RBC (Bld) [#/Vol] 3.36 10*6/uL 4.2-5.4 [facility] Blood hemoglobin measurement (mass/volume)Ordered By: Dr. Pate on 08-05-2022 Hemoglobin (Bld) [Mass/Vol] 12.4 g/dL 12.0-15.0 [facility] Blood lymphocytes/100 leukoc ytesOrdered By: Dr. Pate on 08-05-2022 Lymphocytes/100 WBC (Bld) 18.9 % 19-41 [facility] Blood monocytes/100 leukocyt esOrdered By: Dr. Pate on 08-05-2022 Monocytes/100 WBC (Bld) 10.2 % 0-10 [facility] Blood platelet mean volumeOr dered By: Dr. Pate on 08-05-2022 Platelet mean volume (Bld) [Entitic vol] 10.6 fL 6.2-12.0 [facility] Determination of erythrocyte mean corpuscular volume (MCV)Ordered By: Dr. Pate on 08-05-2022 MCV (RBC) [Entitic vol] 114.6 fL 81-99 [facility] Hematocrit Auto (Bld) [Volum e fraction]Ordered By: Dr. Pate on 08-05-2022 Hematocrit (Bld) [Volume fraction] 38.5 % 37-47 [facility] - Chemistry and C hemistry - challengeOrdered By: Dr. Pate on 08-05-2022 CO2 [Moles/Vol] 24.0 mmol/L 21.0-32.0 [facility] Urea nitrogen/Creatinine [Mass ratio] 23.1 mg/mg 10-20 [facility] - Hematology and Cell countsOrdered By: Dr. Pate on 08-05-2022 Erythrocyte distribution width (RBC) [Entitic vol] 59.2 fL 35.1-43.9 [facility] Erythrocyte distribution width (RBC) [Ratio] 14.0 % 11.6-14.6 [facility] Immature granulocytes/100 WBC (Bld) 0.800 % 0.0-0.9 [facility] Comment on above: IG% - Immature Granu locytes (promyelocytes, myelocytes and metamyelocytes) > 1% indicates that a LEFT SHIFT is Present. MCH (RBC) [Entitic mass] 36.9 pg 27.0-32.0 [facility] Nucleated RBC/100 WBC (Bld) [Ratio] 0 % 0-5 [facility] MCHC Auto (RBC) [Mass/Vol]Or dered By: Dr. Pate on 08-05-2022 MCHC (RBC) [Mass/Vol] 32.2 g/dL 32-36 [facility] No Panel InformationOrdered By: Dr. Pate on 08-05-2022 Estimated Creatinine Clearance Calc 37.88 ml/min [facility] Estimated GFR (MDRD) Amer 66 mL/min >60 [facility] Comment on above: GFR Calc Estimated GFR (MDRD) Non-Af Amer 54 mL/min >60 [facility] Comment on above: Non- GFR Calc Platelets bldOrdered By: Dr. Pate on 08-05-2022 Platelets (Bld) [#/Vol] 327 10*3/uL 150-450 [facility] Serum or plasma albumin niels urement (mass/volume)Ordered By: Dr. Pate on 08-05-2022 Albumin [Mass/Vol] 3.3 g/dL 3.2-5.0 [facility] Serum or plasma calcium niels urement (mass/volume)Ordered By: Dr. Pate on 08-05-2022 Calcium [Mass/Vol] 8.9 mg/dL 8.5-10.1 [facility] Serum or plasma creatinine m easurement (mass/volume)Ordered By: Dr. Pate on 08-05-2022 Creatinine [Mass/Vol] 1.04 mg/dL 0.55-1.02 [facility] Comment on above: The validity of the calculated GFR & GFRAA in patients over 70 years has not been determined. Clinical correlation is essential. Serum or plasma urea nitroge n measurement (mass/volume)Ordered By: Dr. Pate on 08-05-2022 Urea nitrogen [Mass/Vol] 24 mg/dL 7-18 [facility] Thin prep Papanicolaou smear with manual screeningOrdered By: Dr. Pate on 08-05-2022 Thin prep Papanicolaou smear with manual screening 6 5-15 [facility] Absolute lymphocyte countOrd ered By: Dr. Paet on 07-20-2022 Lymphocytes Auto (Unsp spec) [#/Vol] 1.03 10*3/uL 0.83-4.51 [facility] Basophil percentageOrdered B y: Dr. Pate on 07-20-2022 Basophils/100 WBC (Bld) 0.3 % 0-1 [facility] Bilirubin [Mass/Vol] 0.40 mg/dL 0.20-1.00 [facility] Comment on above: For patients on eltr ombopag therapy, use of [facility] [place] TBIL is not recommended. Chloride [Moles/Vol] 107 mmol/L 98-107 [facility] Eosinophils/100 WBC (Bld) 2.4 % 0-5 [facility] Glucose [Mass/Vol] 109 mg/dL 74-106 [facility] Comment on above: Fasting Glucose resu lt from 100 to 125 mg/dL suggests IMPAIRED HOMEOSTASIS per A.D.A. criteria. Neutrophils (Bld) [#/Vol] 4.0 10*3/uL 2.0-7.7 [facility] Neutrophils/100 WBC (Bld) 68.9 % 47-70 [facility] Potassium [Moles/Vol] 4.0 mmol/L 3.5-5.1 [facility] Protein [Mass/Vol] 7.2 g/dL 6.4-8.2 [facility] Sodium [Moles/Vol] 140 mmol/L 136-145 [facility] WBC (Bld) [#/Vol] 5.8 10*3/uL 4.4-11.0 [facility] Blood erythrocytes count (nu mber/volume)Ordered By: Dr. Pate on 07-20-2022 RBC (Bld) [#/Vol] 3.25 10*6/uL 4.2-5.4 [facility] Blood hemoglobin measurement (mass/volume)Ordered By: Dr. Pate on 07-20-2022 Hemoglobin (Bld) [Mass/Vol] 12.2 g/dL 12.0-15.0 [facility] Blood lymphocytes/100 leukoc ytesOrdered By: Dr. Pate on 07-20-2022 Lymphocytes/100 WBC (Bld) 17.7 % 19-41 [facility] Blood monocytes/100 leukocyt esOrdered By: Dr. Pate on 07-20-2022 Monocytes/100 WBC (Bld) 10.2 % 0-10 [facility] Blood platelet mean volumeOr dered By: Dr. Pate on 07-20-2022 Platelet mean volume (Bld) [Entitic vol] 11.0 fL 6.2-12.0 [facility] Determination of erythrocyte mean corpuscular volume (MCV)Ordered By: Dr. Pate on 07-20-2022 MCV (RBC) [Entitic vol] 115.1 fL 81-99 [facility] Hematocrit Auto (Bld) [Volum e fraction]Ordered By: Dr. Pate on 07-20-2022 Hematocrit (Bld) [Volume fraction] 37.4 % 37-47 [facility] - Chemistry and C hemistry - challengeOrdered By: Dr. Pate on 07-20-2022 ALP [Catalytic activity/Vol] 89 U/L 45-117 [facility] ALT [Catalytic activity/Vol] 26 U/L 13-56 [facility] CO2 [Moles/Vol] 25.0 mmol/L 21.0-32.0 [facility] Globulin (S) [Mass/Vol] 3.9 g/dL 2.2-4.2 [facility] Urea nitrogen/Creatinine [Mass ratio] 18.1 mg/mg 10-20 [facility] - Hematology and Cell countsOrdered By: Dr. Pate on 07-20-2022 Erythrocyte distribution width (RBC) [Entitic vol] 63.6 fL 35.1-43.9 [facility] Erythrocyte distribution width (RBC) [Ratio] 15.0 % 11.6-14.6 [facility] Immature granulocytes/100 WBC (Bld) 0.500 % 0.0-0.9 [facility] Comment on above: IG% - Immature Granu locytes (promyelocytes, myelocytes and metamyelocytes) > 1% indicates that a LEFT SHIFT is Present. MCH (RBC) [Entitic mass] 37.5 pg 27.0-32.0 [facility] Nucleated RBC/100 WBC (Bld) [Ratio] 0 % 0-5 [facility] MCHC Auto (RBC) [Mass/Vol]Or dered By: Dr. Pate on 07-20-2022 MCHC (RBC) [Mass/Vol] 32.6 g/dL 32-36 [facility] No Panel InformationOrdered By: Dr. Pate on 07-20-2022 Estimated GFR (MDRD) Amer 58 mL/min >60 [facility] Comment on above: GFR Calc Estimated GFR (MDRD) Non-Af Amer 48 mL/min >60 [facility] Comment on above: Non- GFR Calc Thyroid Stimulating Hormone (TSH) 1.57 uIU/mL 0.358-3.74 [facility] Vitamin D 25-Hydroxy 32.7 ng/mL [facility] Comment on above: Vitamin D 25(OH) Sta tus Range Deficiency <20 ng/mL (50nmol/L) Insufficiency 20 - 30 ng/mL (50 - 75 nmol/L) Sufficiency 30 - 100 ng/mL (75 - 250 nmol/L) Toxicity >100 ng/mL (>250 nmol/L) Platelets bldOrdered By: Dr. Pate on 07-20-2022 Platelets (Bld) [#/Vol] 262 10*3/uL 150-450 [facility] Serum or plasma albumin niels urement (mass/volume)Ordered By: Dr. Pate on 07-20-2022 Albumin [Mass/Vol] 3.3 g/dL 3.2-5.0 [facility] Serum or plasma albumin/glob ulin mass ratioOrdered By: Dr. Pate on 07-20-2022 Albumin/Globulin [Mass ratio] 0.8 {ratio} 0.9-2.4 [facility] Serum or plasma calcium niels urement (mass/volume)Ordered By: Dr. Pate on 07-20-2022 Calcium [Mass/Vol] 8.9 mg/dL 8.5-10.1 [facility] Serum or plasma creatinine m easurement (mass/volume)Ordered By: Dr. Pate on 07-20-2022 Creatinine [Mass/Vol] 1.16 mg/dL 0.55-1.02 [facility] Comment on above: The validity of the calculated GFR & GFRAA in patients over 70 years has not been determined. Clinical correlation is essential. Serum or plasma urea nitroge n measurement (mass/volume)Ordered By: Dr. Pate on 07-20-2022 Urea nitrogen [Mass/Vol] 21 mg/dL 7-18 [facility] Thin prep Papanicolaou smear with manual screeningOrdered By: Dr. Pate on 07-20-2022 Thin prep Papanicolaou smear with manual screening 28 U/L 15-37 [facility] Thin prep Papanicolaou smear with manual screening 8 5-15 [facility] Absolute lymphocyte countOrd ered By: Dr. Pate on 05-06-2022 Lymphocytes Auto (Unsp spec) [#/Vol] 1.13 10*3/uL 0.83-4.51 [facility] Basophil percentageOrdered B y: Dr. Pate on 05-06-2022 Basophils/100 WBC (Bld) 0.2 % 0-1 [facility] Bilirubin [Mass/Vol] 0.40 mg/dL 0.20-1.00 [facility] Comment on above: For patients on eltr ombopag therapy, use of [facility] [place] TBIL is not recommended. Chloride [Moles/Vol] 106 mmol/L 98-107 [facility] Eosinophils/100 WBC (Bld) 1.0 % 0-5 [facility] Glucose [Mass/Vol] 133 mg/dL 74-106 [facility] Comment on above: Fasting Glucose resu lt greater than or equal to 126 mg/dL suggests DIABETES MELLITUS per A.D.A. criteria. Neutrophils (Bld) [#/Vol] 2.5 10*3/uL 2.0-7.7 [facility] Neutrophils/100 WBC (Bld) 60.9 % 47-70 [facility] Potassium [Moles/Vol] 3.4 mmol/L 3.5-5.1 [facility] Protein [Mass/Vol] 7.2 g/dL 6.4-8.2 [facility] Sodium [Moles/Vol] 140 mmol/L 136-145 [facility] WBC (Bld) [#/Vol] 4.1 10*3/uL 4.4-11.0 [facility] Blood erythrocytes count (nu mber/volume)Ordered By: Dr. Pate on 05-06-2022 RBC (Bld) [#/Vol] 3.32 10*6/uL 4.2-5.4 [facility] Blood hemoglobin measurement (mass/volume)Ordered By: Dr. Pate on 05-06-2022 Hemoglobin (Bld) [Mass/Vol] 12.4 g/dL 12.0-15.0 [facility] Blood lymphocytes/100 leukoc ytesOrdered By: Dr. Pate on 05-06-2022 Lymphocytes/100 WBC (Bld) 27.5 % 19-41 [facility] Blood monocytes/100 leukocyt esOrdered By: Dr. Pate on 05-06-2022 Monocytes/100 WBC (Bld) 9.7 % 0-10 [facility] Blood platelet mean volumeOr dered By: Dr. Pate on 05-06-2022 Platelet mean volume (Bld) [Entitic vol] 10.6 fL 6.2-12.0 [facility] Determination of erythrocyte mean corpuscular volume (MCV)Ordered By: Dr. Pate on 05-06-2022 MCV (RBC) [Entitic vol] 112.0 fL 81-99 [facility] Hematocrit Auto (Bld) [Volum e fraction]Ordered By: Dr. Pate on 05-06-2022 Hematocrit (Bld) [Volume fraction] 37.2 % 37-47 [facility] - Chemistry and C hemistry - challengeOrdered By: Dr. Pate on 05-06-2022 ALP [Catalytic activity/Vol] 75 U/L 45-117 [facility] ALT [Catalytic activity/Vol] 17 U/L 13-56 [facility] CO2 [Moles/Vol] 27.0 mmol/L 21.0-32.0 [facility] Globulin (S) [Mass/Vol] 3.8 g/dL 2.2-4.2 [facility] Urea nitrogen/Creatinine [Mass ratio] 20.2 mg/mg 10-20 [facility] - Hematology and Cell countsOrdered By: Dr. Pate on 05-06-2022 Erythrocyte distribution width (RBC) [Entitic vol] 62.5 fL 35.1-43.9 [facility] Erythrocyte distribution width (RBC) [Ratio] 15.3 % 11.6-14.6 [facility] Immature granulocytes/100 WBC (Bld) 0.700 % 0.0-0.9 [facility] Comment on above: IG% - Immature Granu locytes (promyelocytes, myelocytes and metamyelocytes) > 1% indicates that a LEFT SHIFT is Present. MCH (RBC) [Entitic mass] 37.3 pg 27.0-32.0 [facility] Nucleated RBC/100 WBC (Bld) [Ratio] 0 % 0-5 [facility] MCHC Auto (RBC) [Mass/Vol]Or dered By: Dr. Pate on 05-06-2022 MCHC (RBC) [Mass/Vol] 33.3 g/dL 32-36 [facility] No Panel InformationOrdered By: Dr. Pate on 05-06-2022 Estimated Creatinine Clearance Calc 36.73 ml/min [facility] Estimated GFR (MDRD) Amer 62 mL/min >60 [facility] Comment on above: GFR Calc Estimated GFR (MDRD) Non-Af Amer 52 mL/min >60 [facility] Comment on above: Non- GFR Calc Platelets bldOrdered By: Dr. Pate on 05-06-2022 Platelets (Bld) [#/Vol] 239 10*3/uL 150-450 [facility] Serum or plasma albumin niels urement (mass/volume)Ordered By: Dr. Pate on 05-06-2022 Albumin [Mass/Vol] 3.4 g/dL 3.2-5.0 [facility] Serum or plasma albumin/glob ulin mass ratioOrdered By: Dr. Pate on 05-06-2022 Albumin/Globulin [Mass ratio] 0.9 {ratio} 0.9-2.4 [facility] Serum or plasma calcium niels urement (mass/volume)Ordered By: Dr. Pate on 05-06-2022 Calcium [Mass/Vol] 8.9 mg/dL 8.5-10.1 [facility] Serum or plasma creatinine m easurement (mass/volume)Ordered By: Dr. Pate on 05-06-2022 Creatinine [Mass/Vol] 1.09 mg/dL 0.55-1.02 [facility] Comment on above: The validity of the calculated GFR & GFRAA in patients over 70 years has not been determined. Clinical correlation is essential. Serum or plasma urea nitroge n measurement (mass/volume)Ordered By: Dr. Pate on 05-06-2022 Urea nitrogen [Mass/Vol] 22 mg/dL - [facility] Thin prep Papanicolaou smear with manual screeningOrdered By: Dr. Pate on 05-06-2022 Thin prep Papanicolaou smear with manual screening 22 U/L 15 [facility] Thin prep Papanicolaou smear with manual screening 7 - [facility] Absolute lymphocyte countOrd ered By: Dr. Pate on 02-04-2022 Lymphocytes Auto (Unsp spec) [#/Vol] 1.02 10*3/uL 0.83-4.51 [facility] Basophil percentageOrdered B y: Dr. Pate on 02-04-2022 Basophils/100 WBC (Bld) 0.5 % 0-1 [facility] Bilirubin [Mass/Vol] 0.50 mg/dL 0.20-1.00 [facility] Comment on above: For patients on eltr ombopag therapy, use of [facility] [place] TBIL is not recommended. Chloride [Moles/Vol] 106 mmol/L 98-107 [facility] Eosinophils/100 WBC (Bld) 0.5 % 0-5 [facility] Glucose [Mass/Vol] 117 mg/dL 74-106 [facility] Comment on above: Fasting Glucose resu lt from 100 to 125 mg/dL suggests IMPAIRED HOMEOSTASIS per A.D.A. criteria. Neutrophils (Bld) [#/Vol] 2.9 10*3/uL 2.0-7.7 [facility] Neutrophils/100 WBC (Bld) 65.2 % 47-70 [facility] Potassium [Moles/Vol] 4.2 mmol/L 3.5-5.1 [facility] Comment on above: Slight Hemolysis, Re sult may be falsely increased. Protein [Mass/Vol] 7.7 g/dL 6.4-8.2 [facility] Sodium [Moles/Vol] 141 mmol/L 136-145 [facility] WBC (Bld) [#/Vol] 4.4 10*3/uL 4.4-11.0 [facility] Blood erythrocytes count (nu mber/volume)Ordered By: Dr. Pate on 02-04-2022 RBC (Bld) [#/Vol] 3.63 10*6/uL 4.2-5.4 [facility] Blood hemoglobin measurement (mass/volume)Ordered By: Dr. Pate on 02-04-2022 Hemoglobin (Bld) [Mass/Vol] 13.2 g/dL 12.0-15.0 [facility] Blood lymphocytes/100 leukoc ytesOrdered By: Dr. Pate on 02-04-2022 Lymphocytes/100 WBC (Bld) 23.3 % 19-41 [facility] Blood monocytes/100 leukocyt esOrdered By: Dr. Pate on 02-04-2022 Monocytes/100 WBC (Bld) 9.8 % 0-10 [facility] Blood platelet mean volumeOr dered By: Dr. Pate on 02-04-2022 Platelet mean volume (Bld) [Entitic vol] 10.4 fL 6.2-12.0 [facility] Determination of erythrocyte mean corpuscular volume (MCV)Ordered By: Dr. Pate on 02-04-2022 MCV (RBC) [Entitic vol] 111.0 fL 81-99 [facility] Hematocrit Auto (Bld) [Volum e fraction]Ordered By: Dr. Pate on 02-04-2022 Hematocrit (Bld) [Volume fraction] 40.3 % 37-47 [facility] - Chemistry and C hemistry - challengeOrdered By: Dr. Pate on 02-04-2022 ALP [Catalytic activity/Vol] 82 U/L 45-117 [facility] ALT [Catalytic activity/Vol] 23 U/L 13-56 [facility] CO2 [Moles/Vol] 28.0 mmol/L 21.0-32.0 [facility] Globulin (S) [Mass/Vol] 4.3 g/dL 2.2-4.2 [facility] Urea nitrogen/Creatinine [Mass ratio] 16.0 mg/mg 10-20 [facility] - Hematology and Cell countsOrdered By: Dr. Pate on 02-04-2022 Erythrocyte distribution width (RBC) [Entitic vol] 63.5 fL 35.1-43.9 [facility] Erythrocyte distribution width (RBC) [Ratio] 15.6 % 11.6-14.6 [facility] Immature granulocytes/100 WBC (Bld) 0.700 % 0.0-0.9 [facility] Comment on above: IG% - Immature Granu locytes (promyelocytes, myelocytes and metamyelocytes) > 1% indicates that a LEFT SHIFT is Present. MCH (RBC) [Entitic mass] 36.4 pg 27.0-32.0 [facility] Nucleated RBC/100 WBC (Bld) [Ratio] 0 % 0-5 [facility] MCHC Auto (RBC) [Mass/Vol]Or dered By: Dr. Pate on 02-04-2022 MCHC (RBC) [Mass/Vol] 32.8 g/dL 32-36 [facility] No Panel InformationOrdered By: Dr. Pate on 02-04-2022 Estimated Creatinine Clearance Calc 37.77 ml/min [facility] Estimated GFR (MDRD) Amer 64 mL/min >60 [facility] Comment on above: GFR Calc Estimated GFR (MDRD) Non-Af Amer 53 mL/min >60 [facility] Comment on above: Non- GFR Calc Platelets bldOrdered By: Dr. Pate on 02-04-2022 Platelets (Bld) [#/Vol] 300 10*3/uL 150-450 [facility] Serum or plasma albumin niels urement (mass/volume)Ordered By: Dr. Pate on 02-04-2022 Albumin [Mass/Vol] 3.4 g/dL 3.2-5.0 [facility] Serum or plasma albumin/glob ulin mass ratioOrdered By: Dr. Pate on 02-04-2022 Albumin/Globulin [Mass ratio] 0.8 {ratio} 0.9-2.4 [facility] Serum or plasma calcium niels urement (mass/volume)Ordered By: Dr. Pate on 02-04-2022 Calcium [Mass/Vol] 9.4 mg/dL 8.5-10.1 [facility] Serum or plasma creatinine m easurement (mass/volume)Ordered By: Dr. Pate on 02-04-2022 Creatinine [Mass/Vol] 1.06 mg/dL 0.55-1.02 [facility] Comment on above: The validity of the calculated GFR & GFRAA in patients over 70 years has not been determined. Clinical correlation is essential. Serum or plasma urea nitroge n measurement (mass/volume)Ordered By: Dr. Pate on 02-04-2022 Urea nitrogen [Mass/Vol] 17 mg/dL 7-18 [facility] Thin prep Papanicolaou smear with manual screeningOrdered By: Dr. Pate on 02-04-2022 Thin prep Papanicolaou smear with manual screening 25 U/L 15-37 [facility] Comment on above: Slight Hemolysis, Re sult may be falsely increased. Thin prep Papanicolaou smear with manual screening 7 5-15 [facility] Absolute lymphocyte countOrd ered By: Dr. Emery on 01-19-2022 Lymphocytes Auto (Unsp spec) [#/Vol] 1.06 10*3/uL 0.83-4.51 [facility] Basophil percentageOrdered B y: Dr. Emery on 01-19-2022 Basophils/100 WBC (Bld) 0.4 % 0-1 [facility] Bilirubin [Mass/Vol] 0.50 mg/dL 0.20-1.00 [facility] Comment on above: For patients on eltr ombopag therapy, use of [place] [place] TBIL is not recommended. Chloride [Moles/Vol] 106 mmol/L 98-107 [facility] Eosinophils/100 WBC (Bld) 1.1 % 0-5 [facility] Glucose [Mass/Vol] 122 mg/dL 74-106 [facility] Comment on above: Fasting Glucose resu lt from 100 to 125 mg/dL suggests IMPAIRED HOMEOSTASIS per A.D.A. criteria. Neutrophils (Bld) [#/Vol] 4.0 10*3/uL 2.0-7.7 [facility] Neutrophils/100 WBC (Bld) 70.3 % 47-70 [facility] Potassium [Moles/Vol] 3.8 mmol/L 3.5-5.1 [facility] Comment on above: Slight Hemolysis, Re sult may be falsely increased. Protein [Mass/Vol] 7.3 g/dL 6.4-8.2 [facility] Sodium [Moles/Vol] 140 mmol/L 136-145 [facility] WBC (Bld) [#/Vol] 5.6 10*3/uL 4.4-11.0 [facility] Blood erythrocytes count (nu mber/volume)Ordered By: Dr. Emery on 01-19-2022 RBC (Bld) [#/Vol] 3.58 10*6/uL 4.2-5.4 [facility] Blood hemoglobin measurement (mass/volume)Ordered By: Dr. Emery on 01-19-2022 Hemoglobin (Bld) [Mass/Vol] 13.5 g/dL 12.0-15.0 [facility] Blood lymphocytes/100 leukoc ytesOrdered By: Dr. Emery on 01-19-2022 Lymphocytes/100 WBC (Bld) 18.9 % 19-41 [facility] Blood monocytes/100 leukocyt esOrdered By: Dr. Emery on 01-19-2022 Monocytes/100 WBC (Bld) 8.9 % 0-10 [facility] Blood platelet mean volumeOr dered By: Dr. Emery on 01-19-2022 Platelet mean volume (Bld) [Entitic vol] 10.4 fL 6.2-12.0 [facility] Determination of erythrocyte mean corpuscular volume (MCV)Ordered By: Dr. Emery on 01-19-2022 MCV (RBC) [Entitic vol] 110.1 fL 81-99 [facility] Hematocrit Auto (Bld) [Volum e fraction]Ordered By: Dr. Emery on 01-19-2022 Hematocrit (Bld) [Volume fraction] 39.4 % 37-47 [facility] - Chemistry and C hemistry - challengeOrdered By: Dr. Emery on 01-19-2022 ALP [Catalytic activity/Vol] 87 U/L 45-117 [facility] ALT [Catalytic activity/Vol] 21 U/L 13-56 [facility] CO2 [Moles/Vol] 27.0 mmol/L 21.0-32.0 [facility] Globulin (S) [Mass/Vol] 4.0 g/dL 2.2-4.2 [facility] Urea nitrogen/Creatinine [Mass ratio] 16.0 mg/mg 10-20 [facility] - Hematology and Cell countsOrdered By: Dr. Emery on 01-19-2022 Erythrocyte distribution width (RBC) [Entitic vol] 61.0 fL 35.1-43.9 [facility] Erythrocyte distribution width (RBC) [Ratio] 15.3 % 11.6-14.6 [facility] Immature granulocytes/100 WBC (Bld) 0.400 % 0.0-0.9 [facility] Comment on above: IG% - Immature Granu locytes (promyelocytes, myelocytes and metamyelocytes) > 1% indicates that a LEFT SHIFT is Present. MCH (RBC) [Entitic mass] 37.7 pg 27.0-32.0 [facility] Nucleated RBC/100 WBC (Bld) [Ratio] 0 % 0-5 [facility] MCHC Auto (RBC) [Mass/Vol]Or dered By: Dr. Emery on 01-19-2022 MCHC (RBC) [Mass/Vol] 34.3 g/dL 32-36 [facility] No Panel InformationOrdered By: Dr. Emery on 01-19-2022 Estimated GFR (MDRD) Amer 64 mL/min >60 [facility] Comment on above: GFR Calc Estimated GFR (MDRD) Non-Af Amer 53 mL/min >60 [facility] Comment on above: Non- GFR Calc Thyroid Stimulating Hormone (TSH) 1.77 uIU/mL 0.358-3.74 [facility] Vitamin D 25-Hydroxy 28.7 ng/mL [facility] Comment on above: Vitamin D 25(OH) Sta tus Range Deficiency <20 ng/mL (50nmol/L) Insufficiency 20 - 30 ng/mL (50 - 75 nmol/L) Sufficiency 30 - 100 ng/mL (75 - 250 nmol/L) Toxicity >100 ng/mL (>250 nmol/L) Platelets bldOrdered By: Dr. Emery on 01-19-2022 Platelets (Bld) [#/Vol] 258 10*3/uL 150-450 [facility] Serum or plasma albumin niels urement (mass/volume)Ordered By: Dr. Emery on 01-19-2022 Albumin [Mass/Vol] 3.3 g/dL 3.2-5.0 [facility] Serum or plasma albumin/glob ulin mass ratioOrdered By: Dr. Emery on 01-19-2022 Albumin/Globulin [Mass ratio] 0.8 {ratio} 0.9-2.4 [facility] Serum or plasma calcium niels urement (mass/volume)Ordered By: Dr. Emery on 01-19-2022 Calcium [Mass/Vol] 9.2 mg/dL 8.5-10.1 [facility] Serum or plasma creatinine m easurement (mass/volume)Ordered By: Dr. Emery on 01-19-2022 Creatinine [Mass/Vol] 1.06 mg/dL 0.55-1.02 [facility] Comment on above: The validity of the calculated GFR & GFRAA in patients over 70 years has not been determined. Clinical correlation is essential. Serum or plasma urea nitroge n measurement (mass/volume)Ordered By: Dr. Emery on 01-19-2022 Urea nitrogen [Mass/Vol] 17 mg/dL 7-18 [facility] Thin prep Papanicolaou smear with manual screeningOrdered By: Dr. Emery on 01-19-2022 Thin prep Papanicolaou smear with manual screening 24 U/L 15-37 [facility] Comment on above: Slight Hemolysis, Re sult may be falsely increased. Thin prep Papanicolaou smear with manual screening 7 5-15 [facility] Absolute lymphocyte counton 11-04-2021 Lymphocytes Auto (Unsp spec) [#/Vol] 1.00 10*3/uL 0.83-4.51 [facility] Work Phone: Basophil percentageon 2021 Basophils/100 WBC (Bld) 0.3 % 0-1 [facility] Work Phone: Bilirubin [Mass/Vol] 0.50 mg/dL 0.20-1.00 [facility] Work Phone: Comment on above: For patients on eltr ombopag therapy, use of [place] [place] TBIL is not recommended. Chloride [Moles/Vol] 109 mmol/L 98-107 [facility] Work Phone: [phone] Eosinophils/100 WBC (Bld) 1.0 % 0-5 [facility] Work Phone: Glucose [Mass/Vol] 126 mg/dL 74-106 [facility] Work Phone: Comment on above: Fasting Glucose resu lt greater than or equal to 126 mg/dL suggests DIABETES MELLITUS per A.D.A. criteria. Neutrophils (Bld) [#/Vol] 4.5 10*3/uL 2.0-7.7 [facility] Work Phone: Neutrophils/100 WBC (Bld) 75.0 % 47-70 [facility] Work Phone: Potassium [Moles/Vol] 3.7 mmol/L 3.5-5.1 [facility] Work Phone: Comment on above: Slight Hemolysis, Re sult may be falsely increased. Protein [Mass/Vol] 7.5 g/dL 6.4-8.2 [facility] Work Phone: Sodium [Moles/Vol] 141 mmol/L 136-145 [facility] Work Phone: WBC (Bld) [#/Vol] 6.0 10*3/uL 4.4-11.0 [facility] Work Phone: Blood erythrocytes count (nu mber/volume)on 11-04-2021 RBC (Bld) [#/Vol] 3.60 10*6/uL 4.2-5.4 [facility] Work Phone: Blood hemoglobin measurement (mass/volume)on 08-16-2022 Hemoglobin (Bld) [Mass/Vol] 13.3 g/dL 12.0-15.0 [facility] Work Phone: Blood lymphocytes/100 leukoc yteson 11-04-2021 Lymphocytes/100 WBC (Bld) 16.7 % 19-41 [facility] Work Phone: Blood monocytes/100 leukocyt eson 11-04-2021 Monocytes/100 WBC (Bld) 6.5 % 0-10 [facility] Work Phone: Blood platelet mean volumeon 11-04-2021 Platelet mean volume (Bld) [Entitic vol] 10.5 fL 6.2-12.0 [facility] Work Phone: Determination of erythrocyte mean corpuscular volume (MCV)on 11-04-2021 MCV (RBC) [Entitic vol] 111.9 fL 81-99 [facility] Work Phone: Hematocrit Auto (Bld) [Volum e fraction]on 11-04-2021 Hematocrit (Bld) [Volume fraction] 40.3 % 37-47 [facility] Work Phone: [phone] Laboratory - Chemistry and C hemistry - challengeon 11-04-2021 ALP [Catalytic activity/Vol] 82 U/L 45-117 [facility] Work Phone: ALT [Catalytic activity/Vol] 22 U/L 13-56 [facility] Work Phone: CO2 [Moles/Vol] 26.0 mmol/L 21.0-32.0 [facility] Work Phone: Globulin (S) [Mass/Vol] 4.2 g/dL 2.2-4.2 [facility] Work Phone: Urea nitrogen/Creatinine [Mass ratio] 14.0 mg/mg 10-20 [facility] Work Phone: Laboratory - Hematology and Cell countson 11-04-2021 Erythrocyte distribution width (RBC) [Entitic vol] 55.7 fL 35.1-43.9 [facility] Work Phone: Erythrocyte distribution width (RBC) [Ratio] 13.7 % 11.6-14.6 [facility] Work Phone: Immature granulocytes/100 WBC (Bld) 0.500 % 0.0-0.9 [facility] Work Phone: Comment on above: IG% - Immature Granu locytes (promyelocytes, myelocytes and metamyelocytes) > 1% indicates that a LEFT SHIFT is Present. MCH (RBC) [Entitic mass] 36.9 pg 27.0-32.0 [facility] Work Phone: Nucleated RBC/100 WBC (Bld) [Ratio] 0 % 0-5 [facility] Work Phone: MCHC Auto (RBC) [Mass/Vol]on 11-04-2021 MCHC (RBC) [Mass/Vol] 33.0 g/dL 32-36 [facility] Work Phone: No Panel Informationon 11-04 Estimated Creatinine Clearance Calc 35.12 ml/min [facility] Work Phone: Estimated GFR (MDRD) Amer 59 mL/min >60 [facility] Work Phone: Comment on above: GFR Calc Estimated GFR (MDRD) Non-Af Amer 49 mL/min >60 [facility] Work Phone: Comment on above: Non- GFR Calc Platelets bldon 11-04-2021 Platelets (Bld) [#/Vol] 290 10*3/uL 150-450 [facility] Work Phone: Serum or plasma albumin niels urement (mass/volume)on 11-04-2021 Albumin [Mass/Vol] 3.3 g/dL 3.2-5.0 [facility] Work Phone: [phone] Serum or plasma albumin/glob ulin mass ratioon 11-04-2021 Albumin/Globulin [Mass ratio] 0.8 {ratio} 0.9-2.4 [facility] Work Phone: Serum or plasma calcium niels urement (mass/volume)on 11-04-2021 Calcium [Mass/Vol] 9.3 mg/dL 8.5-10.1 [facility] Work Phone: Serum or plasma creatinine m easurement (mass/volume)on 11-04-2021 Creatinine [Mass/Vol] 1.14 mg/dL 0.55-1.02 [facility] Work Phone: Comment on above: The validity of the calculated GFR & GFRAA in patients over 70 years has not been determined. Clinical correlation is essential. Serum or plasma urea nitroge n measurement (mass/volume)on 11-04-2021 Urea nitrogen [Mass/Vol] 16 mg/dL 7-18 [facility] Work Phone: Thin prep Papanicolaou smear with manual screeningon 11-04-2021 Thin prep Papanicolaou smear with manual screening 23 U/L 15-37 [facility] Work Phone: Comment on above: Slight Hemolysis, Re sult may be falsely increased. Thin prep Papanicolaou smear with manual screening 6 5-15 [facility] Work Phone: Blood platelet adequacy dete ction by light microscopyon 11-24-2018 Platelets LM Ql (Bld) ADEQUATE ADEQ [facility] Blood platelet morphology de termination (nominal result)on 11-24-2018 Platelet morphology finding Nom (Bld) LARGE [facility] - Hematology and Cell countson 11-24-2018 Anisocytosis Ql (Bld) 2+ [facility] Macrocytes detectionon 11-24 Macrocytes Ql (Bld) 1+ [facility] Target cell detectionon Target cells LM Ql (Bld) RARE [facility] Hypochromatic red blood cell detectionon 10-27-2018 Hypochromia Ql (Bld) 1+ [facility] No Panel Informationon 10-27 Differential Comment SCANNED [facility] Comment on above: DIMORPHIC RBC POPULA TION NOTED Review by pathologiston Pathologist review Jack (Unsp spec) [Interp] Reviewed [facility] Comment on above: Previous reported re sult: May foll Edited by: RGOOD on 10/28/18:1304 AMENDED REPORT 10/28/18 1304 PATH REV previously reported as: July shayna Absolute reticulocyte counto n 10-13-2018 Reticulocytes (Bld) [#/Vol] 0.00 10*3/uL 0-5 [facility] - Hematology and Cell countson 09-29-2018 Erythrocyte distribution width (RBC) [Ratio] 24.6 % High 11.6-14.6 [facility] No Panel Informationon 09-29 Red Cell Distribution Width Diff 73.7 fl High 35.1-43.9 [facility] Total cell counton 9 Cells counted [employer] (Bld/Tiss) [#] Not Reportable [facility] RBC morphologyon 09-21-2018 RBC morphology finding Nom (Bld) N CHROM NORMAL NORM C&C [facility] [employer] mix RAST testo n 06-27-2018 LDH [Catalytic activity/Vol] 283 U/L High 84-246 [facility] Comment on above: Slight Hemolysis, Re sult may be falsely increased. Iron measurement (mass/mass) on 06-27-2018 Iron (Unsp spec) [Mass/Mass] 54 ug/dL 50-170 [facility] Comment on above: Slight Hemolysis, Re sult may be falsely increased. JAK2 V617F mutation detectio non 06-27-2018 JAK2 gene p.Loe740Mpm [employer] Ql (Bld/Tiss) Comment High . [facility] Comment on above: Result: POSITIVE for the detection of the V617F mutation.Interpretation: The assay detected the presence of a G toT nucleotide change encoding the V617F mutation withinJAK2. Interpretation of this result should be made in thecontext of other clinical, morphologic, and cytogeneticfindings. No Panel Informationon 06-27 JAK2 Mutation Comment . [facility] Comment on above: JAK2 is a cytoplasmi c tyrosine kinase with a ferrell role insignal transduction from multiple hematopoietic growthfactor receptors. A point mutation within exon 14 of theJAK2 gene ([id number]) encoding a valine to phenylalaninesubstitution at position 617 of the JAK2 protein (V617F)has been identified in most patients with polycythemiavera, and in about half of those with either essentialthrombocythemia or idiopathic myelofibrosis. The V617F hasalso been detected, although infrequently, in other myeloiddisorders such as chronic myelomonocytic leukemia andchronic neutrophilic luekemia. V617F is an acquiredmutation that alters a highly conserved valine present inthe negative regulatory JH2 domain of the JAK2 proteinand is predicted to dysregulate kinase activity.Methodology:Total genomic DNA was extracted and subjected to TaqManreal-time PCR amplification/detection. Two amplificationproducts per sample were monitored by real-time PCR usingprimers/probes specific to JAK2 wild type (WT) and SGF6awwuxl V617F. The [employer] Absolute Quantitation softwarewill compare the patient specimen valuse to the standardcurves and generate percent values for wild type andmutant type. In vitro studies have indicated that thisassay has an analytical sensitivity of 1%.References:Matthew EJ, Jean GREENBERG, Zachary PJ, et al. Acquiredmutation of the tyrosine kinase JAK2 in humanmyeloproliferative disorders. Lancet. 2005 Jun 07;365(3424):7204-7654. Travis Santiago, Guido Haynes, Mary Rosas JP. Aunique clonal JAK2 mutation leading to constitutivesignaling causes polycythaemia vera. Nature. 2005 Jul 17;434(7736):7641-8092.Nicolas R, Bolivar F, Jolynn , et al. A sapx-vl-imeddbyb mutation of JAK2 in myeloproliferative disorders.N Engl J Med. 2005 Jul 17; 35217):1806-5678. Miscellaneous Test See comment [facility] Comment on above: TEST RESULT UNITS RE F INTERVALCML Chromosome/FISH ProfileCells Counted 200Cells Analyzed 200FISH Result Comment: NORMAL: NO BCR OR ABL GENE REARRANGEMENT OBSERVEDInterpretation Comment: nuc jacqueline 9q34(ASS1,ABL1)x2,22q11.2(BCRx2)[200].The fluorescence in situ hybridization (FISH) studywas normal. FISH, using unique sequence DNA probes for theABL1 and BCR gene regions showed two ABL1 signals (red), twocontrol ASS1 gene signals (aqua) located adjacent to theABL1 locus at 9q34, and two BCR signals (green) at 22q11.2in all interphase nuclei examined. There was NO evidence ofCML or ALL-associated BCR/ABL1 dual fusion signals in thisanalysis. .This analysis is limited to abnormalities detectableby the specific probes included in the study. FISH resultsshould be interpreted within the context of a fullcytogenetic analysis and pathology evaluation. ..This test was developed and its performancecharacteristics determined by [employer] ([employer]). It has not been cleared orapproved by the U.[place]. Food and Drug Administration. 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 The analysis was based on only5 cells, limiting the ability to rule out additionalabnormal structural and numerical clones.A macrocytic anemia (RA) with megakaryocyticabnormalities and a mild clinical course is characteristicof this anomaly. Transformation to AML is rare except whenfurther chromosomal changes occur.Director Review: Comment:AMIE FERREIRA, PHD, [facility] TESTING PERFORMED AT [facility]. ORIGINAL REPORT ON FILE IN LAB CONTAINS ADDITIONAL TEST SITE INFORMATION. Total Iron Binding Capacity 289 ug/dL 250-450 [facility] Serum or plasma erythropoiet in (EPO) measurement (units/volume)on 06-27-2018 Erythropoietin (EPO) Qn 4.2 mIU/mL 2.6-18.5 [facility] Comment on above: Jadon Luis UniC el DxI 800 Immunoassay SystemValues obtained with different assay methods or kits cannotbe used interchangeably. Results cannot be interpreted asabsolute evidence of the presence or absence of malignantdisease.Performed at: FISH - [facility] [id number] [facility], [place], [place] [id number] Director: Mj Coronado MD, Phone: [phone] at: - [facility] [id number] [facility], [facility], [place] [id number] Director: Mj Coronado MD, Phone: [phone] at: [facility] [address] [id number] Director: Ruddy Parks PhD, Phone: [phone] Serum or plasma ferritin hayden surement (mass/volume)on 06-27-2018 Ferritin [Mass/Vol] 561 ng/mL High 8-252 [facility] Serum or plasma iron saturat ion measurement (mass fraction)on 06-27-2018 Iron saturation [Mass fraction] 18.7 % 15.0-55.0 [facility] Serum or plasma uric acid me asurement (mass/volume)on 06-27-2018 Urate [Mass/Vol] 4.2 mg/dL 2.6-6.0 [facility] Comment on above: The drugs N-Acetylcy steine and Metamizole may falsely depress this assay. Thin prep Papanicolaou smear with manual screeningon 06-27-2018 Thin prep Papanicolaou smear with manual screening 283 U/L 84-246 [facility] Comment on above: Slight Hemolysis, Re sult may be falsely increased. Vital Signs Date Time Vital Sign Value Performing Clinician Erici shante 10-11-2024 15:05-0400 Body height 165.[address] Dago Emery MD Work Phone: [facility] 10-11-2024 15:05-0400 Body temperature 98.2 [degF] Dr. Dago Emery MD Work Phone: [facility] 10-11-2024 15:05-0400 Diastolic blood pressure 73 mm[Hg] Dr. Dago Emery MD Work Phone: [facility] 10-11-2024 15:05-0400 Heart rate 52 /min Dr. Dago Emery MD Work Phone: 2(118)958-669039 [place] [address] 10-11-2024 15:05-0400 Respiratory rate 16 /min Dr. Dago Emery MD Work Phone: 7(938)321-251217 [place] [address] 10-11-2024 15:05-0400 SaO2% (BldA) [Mass fraction] 98 % Dr. Dago Emery MD Work Phone: 3(628)292-508139 [place] [address] 10-11-2024 15:05-0400 Systolic blood pressure 169 mm[Hg] Dr. Dago Emery MD Work Phone: 2(030)255-533517 [place] [address] 09-20-2024 14:30-0400 Body height 165.[address] Dago Emery MD Work Phone: 9(002)166-041317 [place] [address] 09-20-2024 14:30-0400 Body mass index (BMI) [Ratio] 32.4 kg/m2 Dr. Dago Emery MD Work Phone: 0(659)791-465717 [place] [address] 09-20-2024 14:30-0400 Body weight 88.[address] Dago Emery MD Work Phone: 4(605)984-705017 [place] [address] 09-20-2024 14:30-0400 Diastolic blood pressure 73 mm[Hg] Dr. Dago Emery MD Work Phone: 8(584)915-682117 [place] [address] 09-20-2024 14:30-0400 Heart rate 56 /min Dr. Dago Emery MD Work Phone: 1(110)950-328017 [place] [address] 09-20-2024 14:30-0400 Respiratory rate 18 /min Dr. Dago Emery MD Work Phone: 6(415)994-131017 [place] [address] 09-20-2024 14:30-0400 SaO2% (BldA) [Mass fraction] 95 % Dr. Dago Emery MD Work Phone: 9(608)020-529639 [place] [address] 09-20-2024 14:30-0400 Systolic blood pressure 124 mm[Hg] Dr. Dago Emery MD Work Phone: 7(244)427-032417 [place] [address] 07-10-2024 13:45-0400 Body height 165.[address] Dago Emery MD Work Phone: 4(413)429-805917 [place] [address] 07-10-2024 13:45-0400 Body temperature 97.8 [degF] Dr. Dago Emery MD Work Phone: 8(464)904-633917 [place] [address] 07-10-2024 13:45-0400 Diastolic blood pressure 66 mm[Hg] Dr. Dago Emery MD Work Phone: 5(085)925-186217 [place] [address] 07-10-2024 13:45-0400 Heart rate 46 /min Dr. Dago Emery MD Work Phone: 5(003)414-171017 [place] [address] 07-10-2024 13:45-0400 Respiratory rate 16 /min Dr. Dago Emery MD Work Phone: 0(904)074-621117 [place] [address] 07-10-2024 13:45-0400 SaO2% (BldA) [Mass fraction] 98 % Dr. Dago Emery MD Work Phone: 5(215)498-319817 [place] [address] 07-10-2024 13:45-0400 Systolic blood pressure 104 mm[Hg] Dr. Dago Emery MD Work Phone: 7(185)956-002417 [place] [address] 02-22-2024 14:10-0500 Body weight 88.[address] Dago Emery MD Work Phone: 8(448)091-201717 [place] [address] 11-04-2022 14:40-0400 Body height 165.[address] Dago Emery Work Phone: 0(242)912-919317 [place] [address] 11-04-2022 14:40-0400 Body mass index (BMI) [Ratio] 34.2 kg/m2 Dr. Dago Emery Work Phone: 4(672)370-074317 [place] [address] 11-04-2022 14:40-0400 Body temperature 98 [degF] Dr. Dago Emery Work Phone: 4(542)398-315817 [place] [address] 11-04-2022 14:40-0400 Body weight 93.[address] Dago Emery Work Phone: 2(411)044-350917 [place] [address] 08-16-2023 14:40-0400 Diastolic blood pressure 74 mm[Hg] Dr. Dago Emery Work Phone: [facility] 11-04-2022 14:40-0400 Heart rate 51 /min Dr. Dago Emery Work Phone: [facility] 11-04-2022 14:40-0400 Respiratory rate 16 /min Dr. Dago Emery Work Phone: 0(109)189-677039 [place] [address] 11-04-2022 14:40-0400 SaO2% (BldA) [Mass fraction] 98 % Dr. Dago Emery Work Phone: 6(512)920-527139 [place] [address] 11-04-2022 14:40-0400 Systolic blood pressure 140 mm[Hg] Dr. Dago Emery Work Phone: 4(753)517-905517 [place] [address] 10-14-2022 12:50-0400 Body temperature 97.6 [degF] Dr. Dago Emery Work Phone: 6(979)515-124839 [place] [address] 10-14-2022 12:50-0400 Diastolic blood pressure 47 mm[Hg] Dr. Dago Emery Work Phone: 2(969)428-851822 [address] 10-14-2022 12:50-0400 Heart rate 70 /min Dr. Dago Emery Work Phone: 7(054)733-919917 [place] [address] 10-14-2022 12:50-0400 Respiratory rate 18 /min Dr. Dago Emery Work Phone: 7(155)081-513439 [place] [address] 10-14-2022 12:50-0400 SaO2% (BldA) [Mass fraction] 94 % Dr. Dago Emery Work Phone: [facility] 10-14-2022 12:50-0400 Systolic blood pressure 141 mm[Hg] Dr. Dago Emery Work Phone: 9(976)524-000739 [place] [address] 10-13-2022 09:00-0400 Body mass index (BMI) [Ratio] 34.4 kg/m2 Dr. Dago Emery Work Phone: 5(040)797-954639 [place] [address] 10-13-2022 09:00-0400 Body weight 93.[address] Dago Emery Work Phone: [facility] 08-05-2022 13:49-0400 Body height 165.[address] Dago Emery Work Phone: [facility] 08-05-2022 13:49-0400 Body mass index (BMI) [Ratio] 34.2 kg/m2 Dr. Dago Emery Work Phone: 3(657)818-258139 [place] [address] 08-05-2022 13:49-0400 Body temperature 98.3 [degF] Dr. Dago Emery Work Phone: 2(246)993-256739 [place] [address] 08-05-2022 13:49-0400 Body weight 93.[address] Dago Emery Work Phone: 2(250)761-013122 [address] 08-05-2022 13:49-0400 Diastolic blood pressure 83 mm[Hg] Dr. Dago Emery Work Phone: 7(668)305-485817 [place] [address] 08-05-2022 13:49-0400 Heart rate 45 /min Dr. Dago Emery Work Phone: 2(561)312-272722 [address] 08-05-2022 13:49-0400 Respiratory rate 18 /min Dr. Dago Emery Work Phone: 4(897)450-760639 [place] [address] 08-05-2022 13:49-0400 SaO2% (BldA) [Mass fraction] 99 % Dr. Dago Emery Work Phone: 6(479)772-065439 [place] [address] 08-05-2022 13:49-0400 Systolic blood pressure 137 mm[Hg] Dr. Dago Emery Work Phone: 0(237)288-944039 [place] [address] 05-06-2022 14:19-0500 Body height 165.[address] Dago Emery Work Phone: 6(023)700-126339 [place] [address] 05-06-2022 14:19-0500 Body mass index (BMI) [Ratio] 35.5 kg/m2 Dr. Dago Emery Work Phone: 0(977)377-228139 [place] [address] 05-06-2022 14:19-0500 Body temperature 98.3 [degF] Dr. Dago Emery Work Phone: 3(901)664-825839 [place] [address] 05-06-2022 14:19-0500 Body weight 96.[address] Dago Emery Work Phone: 8(223)508-840539 [place] [address] 05-06-2022 14:19-0500 Diastolic blood pressure 72 mm[Hg] Dr. Dago Emery Work Phone: 4(942)506-054339 [place] [address] 05-06-2022 14:19-0500 Heart rate 46 /min Dr. Dago Emery Work Phone: 6(801)455-049839 [place] [address] 05-06-2022 14:19-0500 Respiratory rate 18 /min Dr. Dago Emery Work Phone: 1(677)529-961817 [place] [address] 05-06-2022 14:19-0500 SaO2% (BldA) [Mass fraction] 98 % Dr. Dago Emery Work Phone: 9(227)938-510939 [place] [address] 05-06-2022 14:19-0500 Systolic blood pressure 121 mm[Hg] Dr. Dago Emery Work Phone: 2(203)210-428517 [place] [address] 04-12-2022 08:38-0500 Diastolic blood pressure 94 mm[Hg] Dr. Dago Emery Work Phone: 2(811)250-436117 [place] [address] 04-12-2022 08:38-0500 Heart rate 60 /min Dr. Dago Emery Work Phone: 3(982)130-198717 [place] [address] 04-12-2022 08:38-0500 Respiratory rate 16 /min Dr. Dago Emery Work Phone: 8(381)449-752917 [place] [address] 04-12-2022 08:38-0500 SaO2% (BldA) [Mass fraction] 96 % Dr. Dago Emery Work Phone: 3(314)088-819717 [place] [address] 04-12-2022 08:38-0500 Systolic blood pressure 178 mm[Hg] Dr. Dago Emery Work Phone: 6(414)985-108217 [place] [address] 04-12-2022 08:33-0500 Body height 165.[address] Dago Emery Work Phone: 2(535)133-498417 [place] [address] 04-12-2022 08:33-0500 Body mass index (BMI) [Ratio] 36.3 kg/m2 Dr. Dago Emery Work Phone: [facility] 04-12-2022 08:33-0500 Body temperature 98.5 [degF] Dr. Dago Emery Work Phone: [facility] 04-12-2022 08:33-0500 Body weight 99.[address] Dago Emery Work Phone: [facility] 02-04-2022 14:20-0500 Body mass index (BMI) [Ratio] 34.4 kg/m2 Dr. Dago Emery Work Phone: [facility] 02-04-2022 14:20-0500 Body temperature 97.8 [degF] Dr. Dago Emery Work Phone: [facility] 02-04-2022 14:20-0500 Body weight 93.[address] Dago Emery Work Phone: [facility] 02-04-2022 14:20-0500 Diastolic blood pressure 79 mm[Hg] Dr. Dago Emery Work Phone: [facility] 02-04-2022 14:20-0500 Heart rate 51 /min Dr. Dago Emery Work Phone: [facility] 02-04-2022 14:20-0500 Respiratory rate 16 /min Dr. Dago Emery Work Phone: [facility] 02-04-2022 14:20-0500 SaO2% (BldA) [Mass fraction] 97 % Dr. Dago Emery Work Phone: [facility] 02-04-2022 14:20-0500 Systolic blood pressure 132 mm[Hg] Dr. Dago Emery Work Phone: [facility] 11-04-2021 13:59-0400 Body height 165.[address] Dago Emery Work Phone: [facility] Work Phone: 11-04-2021 13:59-0400 Body mass index (BMI) [Ratio] 34.4 kg/m2 Dr. Dago Emery Work Phone: [facility] Work Phone: 11-04-2021 13:59-0400 Body temperature 97.4 [degF] Dr. Dago Emery Work Phone: [facility] Work Phone: 11-04-2021 13:59-0400 Body weight [address] Dago Emery Work Phone: [facility] Work Phone: 11-04-2021 13:59-0400 Diastolic blood pressure 80 mm[Hg] Dr. Dago Emery Work Phone: [facility] Work Phone: 11-04-2021 13:59-0400 Heart rate 51 /min Dr. Dago Emery Work Phone: [facility] Work Phone: 11-04-2021 13:59-0400 Respiratory rate 16 /min Dr. Dago Emery Work Phone: [facility] Work Phone: 11-04-2021 13:59-0400 SaO2% (BldA) [Mass fraction] 97 % Dr. Dago Emery Work Phone: [facility] Work Phone: 11-04-2021 13:59-0400 Systolic blood pressure 130 mm[Hg] Dr. Dago Emery Work Phone: [facility] Work Phone: 04-25-2020 14:46-0500 Body mass index (BMI) [Ratio] 37.8 kg/m2 Dr. Dago Emery Work Phone: [facility] 04-25-2020 14:46-0500 Body temperature 98 [degF] Dr. Dago Emery Work Phone: [facility] 04-25-2020 14:46-0500 Body weight 99.[address] Dago Emery Work Phone: [facility] 04-25-2020 14:46-0500 Diastolic blood pressure 87 mm[Hg] Dr. Dago Emery Work Phone: [facility] 04-25-2020 14:46-0500 Heart rate 54 /min Dr. Dago Emery Work Phone: [facility] 04-25-2020 14:46-0500 Respiratory rate 17 /min Dr. Dago Emery Work Phone: [facility] 04-25-2020 14:46-0500 SaO2% (BldA) [Mass fraction] 97 % Dr. Dago Emery Work Phone: [facility] 04-25-2020 14:46-0500 Systolic blood pressure 155 mm[Hg] Dr. Dago Emery Work Phone: [facility] Encounters Encounter Date Encounter Type Care Provider Facility Start: 10-16-2024 ambulatory [facility] Fac ility:[facility] Start: 10-16-2024 Evaluation and manag ement of inpatient [facility] Facility:[facility] Start: 10-11-[address] Cira Pate MD -[facility] Start: 10-11-2024 End: 10-11-2024 Patient encounter procedure Carolyn Ruvalcaba NP-C -[facility] Work Phone: Start: 10-11-2024 End: 10-11-[address] Dago Emery MD Work Phone: -[facility] Start: 09-20-2024 End: 09-20-[address] Omero Armas MD -[facility] Work Phone: Start: 09-20-2024 End: 09-20-[address] Omero Armas MD [facility] Start: 09-20-2024 End: 09-20-[address] Dago Emery MD Work Phone: -[facility] Start: 08-08-2024 Encounter for other preprocedural examination [facility] Start: 08-01-2024 End: 08-01-2024 Non-patient / Non-visit Dr. Omero Armas MD -[facility] Work Phone: Start: 08-01-2024 End: 08-01-[address] Dago Emery MD Work Phone: [facility] Work Phone: Start: 08-01-2024 End: 08-01-[address] Dago Emery MD -Pulmonary Services/Neurology Work Phone: Start: 07-31-2024 End: 08-01-[address] Dago Emery MD Work Phone: [facility] Work Phone: Start: 07-31-2024 End: 07-31-[address] Dago Emery MD -[facility] Start: 07-31-2024 End: 07-31-2024 ambulatory [facility] Facility:[facility] Start: 07-10-[address] Cira Pate MD -[facility] Start: 07-10-2024 End: 07-10-2024 Patient encounter procedure Carolyn HAINES -[facility] Work Phone: Start: 07-10-2024 End: 07-10-2024 ambulatory Dago [facility] Facility[facility] Start: 02-22-2024 End: 02-22-2024 ambulatory [facility] Facility:[facility] Start: 01-31-2024 End: 01-31-2024 ambulatory [facility] Facility:[facility] Start: 11-09-2023 End: 11-09-2023 ambulatory Dago [facility] Facility:[facility] Start: 01-25-2023 End: 01-25-[address] Dago Emery Work Phone: [facility] Work Phone: Start: 01-25-2023 End: 01-25-[address] Dago Emery Work Phone: [facility]-Laboratory, Phy Office 3rd Flr Start: 11-04-[address] Dago hays Work Phone: [facility] Start: 11-04-2022 End: 11-04-[address] Dago Emery Work Phone: [facility] [place] [facility] Work Phone: Start: 09-25-2022 End: 10-14-2022 Evaluation and management of inpatient Dr. Dago Emery Work Phone: [facility]Trans[facility] Start: 09-04-2022 End: 09-04-[address] Dago Emery Work Phone: [facility] Work Phone: Start: 09-04-2022 End: 09-04-[address] Dago Emery Work Phone: [facility] Start: 08-05-2022 End: 08-05-[address] Dago Emery Work Phone: [facility] Start: 08-05-[address] Dago hays Work Phone: [facility] Start: 07-20-2022 End: 07-20-[address] Dago Emery Work Phone: [facility] Work Phone: Start: 07-20-2022 End: 07-20-[address] Dago Emery Work Phone: [facility], Phy Office 3rd Flr Start: 05-06-[address] Dago hays Work Phone: [facility] Start: 05-06-2022 End: 05-06-[address] Dago Emery Work Phone: [facility] Start: 04-12-2022 End: 04-12-2022 Emergency department patient visit Dr. Dago Emery Work Phone: [facility]Emergency Department Start: 02-04-[address] Dago hays Work Phone: [facility] Start: 02-04-2022 End: 02-04-[address] Dago Emery Work Phone: [facility] Start: 01-19-2022 End: 01-19-[address] Dago Emery Work Phone: [facility] Work Phone: Start: 01-19-2022 End: 01-19-[address] Dago Emery Work Phone: [facility]-Laboratory, Phy Office 3rd Flr Start: 11-04-[address] Dago hays Work Phone: [facility] Start: 11-04-2021 End: 11-04-[address] Dago Emery Work Phone: [facility] Procedures Date Procedure Procedure Detail Performing Clinician Start: 10-11-[address] Dgao Emery MD Work Phone: Start: 08-01-2024 MRI of lower extremity Dr. Dago Emery MD Work Phone: Start: 07-31-2024 Methicillin resistan t Staphylococcus aureus screening test Dr. Dago Emery MD Work Phone: Start: 07-10-[address] Dago Emery MD Work Phone: Start: 02-22-2024 Measurement of renal function Dr. Dago Emery MD Work Phone: Comment on above: GFR Calc Start: 08-05-2023 Vitamin D, 25-hydrox y measurement Dr. Dago Emery MD Work Phone: Comment on above: Vitamin D 25(OH) Sta tus Range Deficiency <20 ng/mL (50nmol/L) Insufficiency 20 - 30 ng/mL (50 - 75 nmol/L) Sufficiency 30 - 100 ng/mL (75 - 250 nmol/L) Toxicity >100 ng/mL (>250 nmol/L) Start: 09-04-2022 MRI of lower extremity Dr. Dago Emery Work Phone: Start: 04-12-2022 Radiologic examinati on of knee Dr. Dago Emery Work Phone: Plan of Treatment Date Care Activity Detail Author Start: 10-11-2024 CBC W Auto Different ial panel - Blood [facility] Start: 10-11-2024 [facility] Start: 10-14-2022 Patient discharge [facility] Start: 10-13-2022 Development of care plan [facility] Start: 10-09-2022 Referral to service [facility] Start: 10-09-2022 [facility] Start: 10-04-2022 [facility] Start: 10-04-2022 [facility] Start: 09-26-2022 Developing a treatme nt plan [facility] Start: 09-26-2022 Development of care plan [facility] Start: 09-26-2022 Application of device [facility] Start: 09-25-2022 Wound care [facility] Start: 09-25-2022 Admission procedure [facility] Start: 09-25-2022 Measuring intake and output [facility] Start: 09-25-2022 Patient referral to dietitian [facility] Start: 09-25-2022 Referral to occupati onal therapist [facility] Start: 09-25-2022 Referral to service [facility] Start: 09-25-2022 Vital signs measurements [facility] Start: 09-25-2022 End: 09-25-2022 [facility] Start: 07-21-2018 [facility] CBC W Auto Different ial panel - Blood [facility] Work Phone: CBC W Auto Different ial panel - Blood [facility] CBC W Auto Different ial panel - Blood [facility] CBC W Auto Different ial panel - Blood [facility] CBC W Auto Different ial panel - Blood [facility] CBC W Auto Different ial panel - Blood [facility] metabo lic 1999 panel - Serum or Plasma [facility] 1999 panel - Serum or Plasma [facility] Patient Education ED Meniscal In juralia Knee Poss [facility] Work Phone: Patient referral [facility] Work Phone: [facility] Immunizations Immunization Date Immunization Notes Care Provider Fa cility 11-23-2020 Covid (Moderna) Dr. Dago Emery Work Phone: [facility] 10-26-2020 Covid (Moderna) Dr. Dago Emery Work Phone: [facility] 01-16-2020 influenza, injectabl e, quadrivalent, preservative free Dr. Dago Emery Work Phone: [facility] 11-23-[address] Dago Emery Work Phone: [facility] 09-07-[address] Dago Emery Work Phone: [facility] 01-12-2019 influenza, injectabl e, quadrivalent, preservative free Dr. Dago Emery Work Phone: [facility] 12-20-2008 pneumococcal vaccine , unspecified formulation Dr. Dago Emery Work Phone: [facility] 07-21-2008 pneumococcal polysaccharide vaccine, [address] Dago Emery Work Phone: [facility] Payers Date Payer Category Payer Self-pay [id number] 2018 Medicare [id number] 2018 Private Health Insurance [id number] Unknown [facility] PACKAGE PLAN [id number] Unknown [id number] Unknown [id number] Unknown [id number] Unknown [id number] Unknown [id number] Unknown [id number] Unknown [id number] Unknown [id number] Unknown [id number] Unknown [id number] Unknown [id number] Unknown [id number] Unknown [id number] Social History Date Type Detail Facility Start: 07-24-2020 End: 09-25-2022 Tobacco smoking status NHIS Unknown if ever smoked [facility] Start: 04-16-2014 None [facility] Start: 12-02-2018 Non-smoker [facility] Start: 1945 Sex Assigned At Female [facility] Start: 07-31-2024 End: 10-04-2024 Tobacco smoking status NHIS Never smoked tobacco (finding) [facility] Medical Equipment Procedure Code Equipment Code Equipment Origin al Text Equipment Identifier Dates ([id number]) Metal-backed pat jason prosthesis [id number] FDA Start: 09-23-2022 ([id number]) Coated knee femu r prosthesis ()[id number] FDA Start: 09-23-2022 ([id number]) Coated knee tibi a prosthesis [id number] FDA Start: 09-23-2022 ([id number]) Tibial insert [id number] FDA Start: 09-23-2022 Goals Date Patient Goal Desired Activity /State Functional Status Date Assessment Result Facility 10-14-2022 Functional status Activity Ability Indepe ndent [facility] Work Phone: 10-13-2022 Functional status Ambulates;Up ad aldo [facility] Work Phone: 10-12-2022 Functional status Tolerates Activity Well [facility] Work Phone: Mental Status Date Assessment Result Facility 10-14-2022 Cognitive function Voice/Name [facility] Work Phone: 10-07-2022 Cognitive function Appropriate [facility] Work Phone: Clinical Notes 07-10-2024 to 10-13-2024 Note Date & Type Note Facility 10-13-2024 Note [facility] Medical Records Department [address] [place] [address] History Physical Exam 10/13/24 1655 MR#: [id number] Acct: [id number] Name: BERNICE JUAN Rep #: [id number] : 1945 79 From: Nela CORNELIUS PCP: Dr. Dago Emery MD Status:[facility] Location: [place] [address] History and Physical History and Physical Patient Name: Bernice RodriguezsDOB: 1945 From: NELA CASANOVA PA-C DATE OF PRE-OPERATIVE EXAM: 10/12/2024 DATE OF SURGERY: 10/16/2024 SCHEDULED PROCEDURE: Robotic assisted left total knee arthroplasty HISTORY OF PRESENT ILLNESS: Patient is a 78 year old female that presents to the office for left knee pain. Patient was last seen in April 2024 by one of the physician assistants. She had a corticosteroid injection at that time. She reports it offered minimal relief. Patient reports significant exacerbation of her pain now limiting her activities of daily living. She reports most intense pain can be an 8 out of 10. She has to use a walker or cane for ambulation. She has problems with stability. She has previous tibia fracture and previous intramedullary tibial nail. She has been under my care for this for quite some time. She continues to take Tylenol on a regular basis and Advil both with minimal relief. REVIEW OF SYSTEMS: Review Of Systems: Constitutional: Denies anorexia, anxiety, change in appetite, fever, difficulty sleeping, weight change. Cardiovasular: Denies chest pain, heart murmur, irregular heartbeat and peripheral vascular disease. Respiratory: Denies asthma, cough, pneumonia, sleep apnea, shortness of breath, tuberculosis and wheezing. Gastrointestinal: Denies constipation, diarrhea, heartburn, nausea, rectal itching, bloody stools and vomiting. Genitourinary: . (F Genital Sx) Denies incontinence. Musculoskeletal: Reports pain, but denies leg swelling, trouble walking and weakness. Skin: Denies Raynaud's, history of shingles and tattoo. Neurological: Denies ambulatory dysfunction, dizziness, numbness/tingling and tremor. Psychiatric: Denies anxiety, depression, insomnia, mental illness and stress. Hematologic/Lymphatic: Denies anemia, bleeding/bruising tendency and past transfusion. Reviewed, no changes. PAST MEDICAL HISTORY: Advance Care Plan: Other Directive, MEDICAL POA Effective Date: 07/23/2023 Other Directive, LIVING WILL Effective Date: 07/23/2023 Past Medical History: Medical Problems: Arthritis, High Blood Pressure, Kidney Stones Cancer - THROMBOCYTHEMIA Thyroid Disease Accidents: Fracture - LT TIB LT Hip FX - (04/16/2014) FALL ON ICE Surgical Hx: LT Hip ORIF - (04/17/2014) OPAL @ [facility] LT Leg - (2007) Knee Replacement RT - (09/23/2022) SAW RT TKR ROBOTIC AT [facility] Anesthesia Complications: None Assistive Devices: Glasses, Walker Reviewed, no changes. 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 Personal Habits: Cigarette Use: Never.Smokeless Tobacco: Never Used Smokeless Tobacco.E-Cigarette Use: Never used.Alcohol: Denies use.Drug Use: Denies Use.Enjoy Exercising: Never Exercises. Reviewed, no changes. VITALS: Ht: 63 Wt: 190lb Wt k.184 BMI: 33.7 BP: 134/70 Pulse: 50 Resp: 14 T: 97.8 T: 36.6C Pain Level: 0/10 O2SatR: 97 ALLERGIES: Penicillin Contrast Dye Phenergan Promethazine HCL Tetanus Toxoids Red Dye 40 Meloxicam Celebrex MEDICATIONS: Levothyroxine Sodium 50 mcg 1 by mouth every day, Atenolol 100 mg 1 tab po daily, Losartan Potassium 100 mg 1 by mouth every day, Aspirin 81 Low Dose 81 mg 1 by mouth every day, Amlodipine Besylate 5 mg 1 by mouth every day, Vitamin D3 25 mcg (1000 Ut) 1 a day, Baclofen 10 mg take 1 tablet by mouth at bedtime if needed, Tylenol Extra Strength 500 mg 2 by mouth every 8 hours, Hydroxyurea 500 mg take 2 capsules by mouth once daily except on wednesdays and sundays PRE-OP EXAM: General appearance:NORMAL Other: Eyes: Conjunctivae and lids: NORMAL Pupils: ERR Ears, Nose, Mouth, and Throat: NORMAL Other: Inspection of lips, teeth and gums: NORMAL Other: Neck: Examination of neck: no masses noted. Respiratory: Assessment of respiratory effort: NORMAL Other: Auscultation of lungs: clear to auscultation no wheezes, rhonchi or rales. Cardiovascular: Auscultation of heart: regular rate and rhythm, no murmurs, gallops or rubs. Exam of carotid arteries: NORMAL Other: Gastrointestinal: Exam of abdomen: soft, nontender, nondistended bowel sounds present. Lymphatic: Palpation of nodes in neck: NORMAL Other: Palpation of nodes in Axillae: NORMAL Other: Neurological: see below Psychiatric: Orientation to time, place and person: NORMAL Other: Mood and affect: NORMAL Other: PHYSICAL EXAMINATION: Fixed valgus alignment 2 mm medial collateral laxity. 1 mm lateral collateral laxity. Tenderness palpation of the (more content not included)... [facility] 10-11-2024 Progress note [facility] 10-11-2024 Progress note Note Date/Time October 11, 2024 3:22pm [facility] [place] [address] OFFICE VISIT Date of Service: 10/11/24 1453 MR#: [id number] Acct: [id number] Name: BERNICE JUAN Rep #: [id number] : 1945 From: Carolyn Hernandez ch KNOCKOUT MAN KNOCKOUT MAN-C Age/Sex: 79/F Location[place] [facility] Status: Signed HPI Subjective Date of Service 10/11/24 Chief Complaint Essential thrombocythemia on treatment History of Present Illness 79-year-old female with a medical history notable for morbid obesity, hypertension, dyslipidemia, disabling degenerative joint disease of the lower extremities presenting with an abnormal CBC notably persistent thrombocytosis. She has no known chronic infectious or inflammatory diseases. 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 Treatment: Hydrea started July 29, 2018 Interval History The patient is presenting to clinic today accompanied by for planned 3-month follow-up. Patient confirms adherence to oral therapy with Hydrea at this time,1000 mg daily days on Wednesdays and ASA. Although she is scheduled for a left knee replacement on Wednesday10/16/24 and was instructed to hold ASA this week. + Chronic BLE edema, improves with elevation. Specifically denies headache, dizziness, CP, palpitations, cough, SOB, abd pain,any episodes of overt bleeding, + bruises easily. [facility] Medical History (Updated 10/04/24 @ 13:55 by Joanie Rodgers) Cardiology follow-up encounter Wears glasses Post-menopausal Depression Anxiety Ambulates with cane Walker as ambulation aid Arthritis Migraine headache History of IBS Non-smoker History of edema History of pain when walking Thrombocythemia Hx of fracture of leg Fracture of left hip requiring operative repair Vitamin D deficiency Osteopenia Melanoma in situ Hypothyroidism Hyperlipidemia Hypertension Surgical History History of total right knee replacement Hx of right cataract extraction Hx of left cataract extraction History of breast lump removal History of hip surgery Family History Father Rheumatoid arthritis Social History household members: none housing: condominium Smoking Status: Never smoker second hand exposure: No alcohol intake: never substance use type: does not use justice/jehovah's witness: Spiritism seatbelt use: always do you feel safe at home: Yes ROS ROS Narrative Negative except as documented in the interval HPI Intake Vital Signs 07/10/24 13:45 09/20/24 14:30 10/11/24 14:54 10/11/24 15:05 Height 5 ft 5 in 5 ft 5 in 5 ft 5 in 5 ft 5 in BP 169/73 H Blood Pressure Location Rt brachial Position Sitting Respiration 16 Pulse 52 L Pulse Source Monitor Temp 98.2 F Temperature Source Temporal Artery Pulse Oximetry (%) 98 Oxygen Delivery Method room air Intake Is patient in pain?: No Allergies promethazine HCl (From Phenergan) Allergy (Severe, Verified 10/11/24 15:04) Other Penicillins Adverse Reaction (Severe, Verified 10/11/24 15:04) Swelling red dye Adverse Reaction (Severe, Verified 10/11/24 15:04) Unknown Tetanus Vaccines and Toxoid Adverse Reaction (Intermediate, Verified 10/11/24 15:04) NEEDS FOLLOW-UP Medications ?Medication ?Instructions ?Recorded ?Confirmed ?Type levothyroxine 50 mcg tablet 50 mcg PO DAILY thyroid 10/11/24 History (Levoxyl) losartan 100 mg tablet 100 mg PO DAILY bp 06/06/18 10/11/24 History amlodipine 5 mg tablet 5 mg PO DAILY bp 07/21/18 History cholecalciferol (vitamin D3) 25 1,000 unit PO DAILY pravin michael 10/26/19 10/11/24 History mcg (1,000 unit) tablet atenolol 50 mg tablet 50 mg PO DAILY@0800 30 days #30 10/09/22 10/11/24 Rx tabs aspirin 81 mg chewable tablet 81 mg PO DAILY 09/20/24 10/11/24 History hydroxyurea 500 mg capsule 1,000 mg (2 x 500 mg) PO 10/11/24 Rx MOTUTHFRSA #100 caps acetaminophen 500 mg tablet 1,000 mg PO BID PRN inflam mation 10/04/24 10/11/24 History Have you fallen in the past year?: No Central Venous Access Central Venous Access: No Laboratory Tests 10/11/24 14:18 WBC 3.7 L Hgb 12.1 Hct 36.1 L Plt Count 244 Absolute Neuts (auto) 2.1 Laboratory Tests 10/11/24 14:18 Sodium 136 Potassium 4.1 Chloride 102 Carbon Dioxide 21.4 BUN 15 Creatinine 1.08 Glucose 129 H Total Bilirubin 0.40 AST 22 ALT 14 Alkaline Phosphatase 82 Albumin 4.0 Exam Physical Exam Const alert and oriented x3 Constitutional Narrative: ECOG 1-2, General Appearance: cooperative and comfortable Nutritional Appearance: obese HEENT normocephalic Mouth: oral and palatal mucosa normal Eyes General Eye: normal appearance of both eyes Neck no lymphadenopathy and no JVD Resp normal respiratory effort and clear to auscultation bilaterally Cardio regular rate and regular rhythm Extremity General Extremity: edema bilateral lower extremity Details: mild; Negative for clubbing or cyanosis Skin Rashes: no rashes Neuro oriented x3, CN's II-XII intact bilaterally and moves all extremities Speech: speech normal Gait (Neuro): normal gait and assistive device used walker Psych mental status grossly normal and affect normal Coding Level of Care Code Off vis,est,level 4 Exam Problem Focused Diagnoses Essential thrombocythemia D47.3 Myeloproliferative disorder D47.1 Assessment and Plan Assessment and Plan (1) Essential thrombocythemia: Status: Chronic Comment: Britton 2+ (2) Myeloproliferative disorder: Status: Chronic Orders: Orders CBC W/Diff, Automated 3 Months D47.3 - Essential (hemorrhagic) thrombocythemia Comprehensive Metabolic Profil 3 Months D47.3 - Essential (hemorrhagic) thrombocythemia Plan 79-year-old female with myeloproliferative 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 Other risk factors for vascular disease includedyslipidemia and hypertension. Started cytoreductive therapy with Hydrea, with normalization of platelet count and no significant other cytopenias (leukopenia with preserved neutrophil count of no clinical sequela and macrocytosis). Chronic comorbid conditions: Hypertension, dyslipidemia, degenerative joint disease, hypothyroidism.. Plan and macrocytosis #1 Continue cytoreductive therapy with Hydrea, current dose of 2 tablets daily5 days/week (rest on Sundays and Wednesdays). Follow-up in 3 months. #2-Low-dose aspirin daily. Clinical Quality Measures Falls Risk Screening/Assistive Devices Have you fallen in the past year?: No 10/11/24 1522 <Electronically signed by Carolyn philippe NP [employer]OUT MAN-C> Date _ Carolyn Ruvalcaba NP [employer] MAN-C Cosigner Signature: Date (if applicable) CC: ~ [employer] Work Phone: 1(892) 472-114205-14-2025 Radiology Diagnostic study note [facility] Imaging Services [address] [place] [address] [id number] Extremity Lower without Contra MR#: [id number] Acct: [id number] Name: BERNICE JUAN Rep #: [id number] : 1945 F 79 From: Myron Newton MD PCP: Dr. Dago Emery MD Status: REG C GOYO Study:Extremity Lower without Contra Date of Exam: 08/01/24 Exam# [id number] Ordering Dr: Grayson Rodriguez MD PROCEDURE: EXTREMITY LOWER WITHOUT CONTRA 08/01/2024 REASON FOR EXAM: OSTEOARTHRITIS LEFT KNEE TECHNIQUE: Axial CT images of the left hip, left knee, left ankle obtained without intravenous contrast, as a FRANCESCA exam for the knee.. Coronal and Sagittal reconstruction series were provided for the left knee. One or more dose reduction techniques were used (e.g., Automated exposure control, adjustment of the mA and/or kV according to patient size, use of iterative reconstruction technique). RADIATION DOSE SUMMARY: DLP: 1328.46 mGycm. COMPARISON: None provided. FINDINGS: Partially visualized left proximal femoral fixation device in place. No evidence of metallic fracture or loosening. Imaging of the left ankle demonstrates mild degenerative changes. Partially visualized fixation device in the distal tibia without apparent complication. Imaging of the left hip demonstrates moderate degenerative changes, with significant partial joint narrowing. No evidence of femoral head osteonecrosis. The left knee demonstrates a small joint effusion. Moderately severe to severe tricompartmental left knee degenerative changes are noted. No fracture site is seen. Moderate arterial calcification is noted. CT/Extremity Lower without Contra IMPRESSION: 1. Degenerative changes of the left hip, left ankle, and especially left knee. 2. Partially visualized fixation devices of the proximal left femur and distal left tibia without apparent complication. Reading Location: [facility] CC: Dr. Geo Rodriguez MD; Dr. Dago Emery MD ~ Promotional Representative: Signed [facility]04-21-2025 Evaluation note* Diagnosis Onset Date Resolution Status Admit Date Essential thrombocythemia chronic July 10, 2024 12:43pm Myeloproliferative disorder chronic July 10, 2024 12:43pm Essential thrombocythemia chronic July 10, 2024 12:45pm Myeloproliferative disorder chronic July 10, 2024 12:45pm Educational circumstance resolved July 10, 2024 12:45pm Erythrocytosis resolved June 12:45pm Leukocytosis resolved July 10, 2024 12:45pm Thrombocytosis deleted June 12:45pm [facility] Work Phone: 1(143) 179-233504-21-2025 Evaluation note* Diagnosis Onset Date Resolution Status Admit Date Essential thrombocythemia chronic July 10, 2024 12:43pm Myeloproliferative disorder chronic July 10, 2024 12:43pm Abnormal ECG acute September 20 2:25pm Pre-op evaluation acute September 2:25pm Hyperlipidemia chronic September 20, 2024 2:25pm Hypertension chronic September 20 2:25pm Essential thrombocythemia chronic October 11, 2024 2:06pm Myeloproliferative disorder chronic October 11, 2024 2:06pm Essential thrombocythemia chronic October 11, 2024 2:15pm Myeloproliferative disorder chronic October 11, 2024 2:15pm Educational circumstance resolved October 11, 2024 2:15pm Erythrocytosis resolved October 11, 2024 2:15pm Leukocytosis resolved October 11, 025 2:15pm Thrombocytosis deleted October 11, 2024 2:15pm [facility] Work Phone: Discharge summary Author Dr. Yanez [facility] April 12, 2022 10:08am Note Date/Time April 12, 2022 8 :45am [facility] Medical Records Department [address] [place] [address] Emergency Department Summary 04/12/22 MR#: [id number] Acct: [id number] Name: BERNICE JUAN Rep #:[id number] : 1945 76 From: Garret Yanez DO PCP: Dr. Dago Emery MD Status:REG E R Location: ED HPI History of Present Illness Chief Complaint: Lower Extremity Injury Narrative Narrative: 76-year-old female with right knee pain. She states been hurting her for about 4 days. She states on the medial aspect of the right knee. Patient denies any trauma. She has a history of left knee problems and has been seen by orthopedics. Apparently they cannot do a knee replacement because she has a titanium abiola in the left leg. She went to physical therapy for this and finished in January. She states that her right knee started hurting about 4 days ago. She is able to ambulate with her walker and states when she uses her walker and actually improves the pain. The pain is worse when she lies on either side in bed. She states he has a history of osteoarthritis. [facility] Medical History Anxiety Fracture of left hip requiring operative repair Hyperlipidemia Hypertension Hypothyroidism Kidney stones Melanoma in situ Osteopenia Vitamin D deficiency Home Medications levothyroxine 50 mcg tablet (Levoxyl) 50 mcg PO DAILY 08/04/13 [History Last Taken 04/19/14 05:30] Atenolol 100 mg PO DAILY 04/17/14 [History Last Taken 12/06/18 07:00 100 MG] losartan 100 mg tablet 100 mg PO DAILY 06/06/18 [History Last Taken 12/06/18 07:00 100 MG] amlodipine 5 mg tablet 5 mg PO DAILY 07/21/18 [History Last Taken 12/06/18 07:00 5 MG] cholecalciferol (vitamin D3) 25 mcg (1,000 unit) tablet 1,000 unit PO DAILY 10/26/19 [History Last Taken Unknown] aspirin 81 mg tablet,delayed release 81 mg PO .QOD 11/04/21 [History Last Taken Unknown] hydroxyurea 500 mg capsule 1,000 mg PO DAILY #120 caps 02/04/22 [Rx Last Taken Unknown] Allergy/AdvReac Type Severity Reaction Status Date / Time promethazine HCl Allergy Severe Other Verified 04/12/22 08:37 [From Phenergan] Penicillins AdvReac Severe Swelling Verified 04/12/22 08:37 red dye AdvReac Severe Unknown Verified 04/12/22 08:37 Tetanus Vaccines and Toxoid AdvReac Intermediate NEEDS Verified 04/12/22 08:37 FOLLOW-UP Family History Father Rheumatoid arthritis Surgical History History of breast lump removal History of hip surgery Social History housing: condominium Smoking Status: Never smoker second hand exposure: No alcohol intake: never substance use type: does not use justice/jehovah's witness: Spiritism seatbelt use: always do you feel safe at home: Yes ROS ROS ED Constitutional Constitutional ED: Denies chills, fever(s) or sweats Eyes Eyes: Denies blurry vision or change in vision ENT ENT ED: Denies ear pain or sore throat Cardiovascular Cardiovascular: Denies chest pain, palpitations or racing heartbeat Respiratory/Chest Respiratory/Chest: Denies cough, dyspnea or sputum Gastrointestinal Gastrointestinal: Denies abdominal pain, constipation, diarrhea, nausea or vomiting Genitourinary Genitourinary ED: Denies dysuria, hematuria or urinary frequency Musculoskeletal Musculoskeletal: Reports other Details: Right knee pain ; Denies myalgias or neck pain Integumentary Denies abscess, Abrasions or rash Neurologic Neurologic: Denies headache(s), paresthesias or weakness Psychiatric Psychiatric: Denies anxiety, depression, suicidal ideation or suicidal thoughts Endocrine Endocrinology: Denies polydipsia or polyuria EXAM Physical Exam Const Vital Signs: 04/12/22 08:33 04/12/22 08:38 Temperature 98.5 F Temperature Source Oral Pulse Rate 63 60 Respiratory Rate 18 16 Blood Pressure 178/94 H Blood Pressure Mean 122 Pulse Ox 97 96 Oxygen Delivery Method Room Air Room Air Positive well nourished General Appearance ED: NAD HEENT Reports moist mucous membranes normocephalic and atraumatic Chest Wall palpation of chest normal Resp normal respiratory effort and no retractions Cardio regular rate and regular rhythm Extremity Extremity Narrative: Right medial knee. No patellar tenderness. No obvious joint effusion. No erythema or warmth. Right knee extensor mechanism is intact. No ligamentous laxity. Minimal pain with range of motion. MDM MDM MDM Narrative Medical decision making narrative: Patient presenting with right knee pain. This is nontraumatic. Differential currently includes but not limited to osteoarthritis, knee strain, meniscal tear, joint effusion. There is no evidence currently that this is septic knee and the patient is ambulatory on it. She has full range of motion although there is some tenderness. I did obtain an x-ray of the right knee which on my interpretation shows degenerative changes. Radiologist interprets this and agree. No evidence of acute fracture. No significant effusion. Patient will be placed in Scott wrap. Is recommended that she versus ibuprofen at home. She is to follow-up with orthopedic physician. Discharged home in stable condition. Impression: 1. Right knee strain 2. History of osteoarthritis Lab Data Attestation: I reviewed the patient's lab results. Radiography Diagnostic Testing: Clinical Impression(s) from Imaging Studies Knee X-Ray 04/12/22 09:14 IMPRESSION: Degenerative arthrosis. Electronically Signed: Sb Vernon MD at 9:33 EST Reading Location ID and State: [address] [place] [address] , Service support , Discharge Plan Triage Chief Complaint: Lower Extremity Injury ED Provider: Garret Yanez Dx/Rx/DC Orders Instructions: ED Meniscal Injury Knee Poss Prescriptions: No Action levothyroxine [Levoxyl] 50 MCG tablet 50 mcg PO DAILY Label Comments: THYROID Atenolol 100 MG tablet 100 mg PO DAILY Label Comments: LOWERS BLOOD PRESURE losartan 100 MG tablet 100 mg PO DAILY Label Comments: take 1 tablet by mouth once daily amlodipine 5 MG tablet 5 mg PO DAILY cholecalciferol (vitamin D3) 1,000 UNIT tablet 1,000 unit PO DAILY aspirin 81 mg tablet,delayed release (DR/EC) 81 mg PO .QOD hydroxyurea 500 mg Capsule 1,000 mg PO DAILY Qty: 120 3RF Rx Instructions: Except Sundays and Wednesdays, Adjust as instructed Primary Care Provider: Dago Emery Chi Referrals: Dago Emery Chi, MD [Primary Care Provider] - Disposition Disposition: Home, Self Care What to do if you have Problems For any increased pain, shortness of breath, bleeding, nausea or vomiting, chestpain, or any unexpected problems, contact your Primary Care Provider. Call [facility] ([phone]) or report to the closest Emergency Room. Call 911 if necessary. 04/12/22 1008 <Electronically signed by Garret Yanez DO> Cosigner Signature (if applicable): CC: Dr. Dago Emery MD ~ Signed [facility] Work Phone: Evaluation note* Diagnosis Onset Date Resolution Status Essential thrombocythemia ch ronic Myeloproliferative disorder chronic Essential thrombocythemia ch ronic Myeloproliferative disorder chronic Educational circumstance res olved Erythrocytosis resolved Leukocytosis resolved [facility] Work Phone: Evaluation note* Diagnosis Onset Date Resolution Status Essential thrombocythemia ch ronic Myeloproliferative disorder chronic Educational circumstance res olved Erythrocytosis resolved Leukocytosis resolved Essential thrombocythemia ch ronic Myeloproliferative disorder [facility] Work Phone: Evaluation note* Diagnosis Onset Date Resolution Status BMI 33.0-33.9,adult acute Debility acute Status post total right knee replacement acute Essential thrombocythemia ch ronic Hyperlipidemia chronic Hypertension chronic Hypothyroidism chronic Essential thrombocythemia ch ronic Myeloproliferative disorder chronic Essential thrombocythemia ch ronic Myeloproliferative disorder chronic Educational circumstance res olved Erythrocytosis resolved Leukocytosis resolved [facility] Work Phone: Reason for referral (narrative)No reason for referral information availableWSy[facility] Work Phone: Chief Complaint and Reason for Visit Chief Complaint 3 MO - LABS 3 MO - LABS Reason for Visit Essential thrombocyt hemia Myeloproliferative disorder Essential thrombocythemia Myeloproliferative disorder Educational circumstance Erythrocytosis Leukocytosis Chief Complaint 3 MO - LABS 3 MO - LABS hip pain Reason for Visit Essential thrombocyt hemia Myeloproliferative disorder Essential thrombocythemia Myeloproliferative disorder Educational circumstance Erythrocytosis Leukocytosis Chief Complaint hip pain 3 MO - LABS 3 MO - LABS Reason for Visit Essential thrombocyt hemia Myeloproliferative disorder Essential thrombocythemia Myeloproliferative disorder Educational circumstance Erythrocytosis Leukocytosis Chief Complaint 3 MO - LABS 3 MO - LABS RT KNEE *FRANCESCA PROTOCOL* Reason for Visit Essential thrombocyt hemia Myeloproliferative disorder Educational circumstance Erythrocytosis Leukocytosis Essential thrombocythemia Myeloproliferative disorder Chief Complaint RIGHT TOTAL KNEE 3 MO - LABS 3 MO - LABS Reason for Visit BMI 33.0-33.9,adult Debility Status post total right knee replacement Essential thrombocythemia Hyperlipidemia Hypertension Hypothyroidism Essential thrombocythemia Myeloproliferative disorder Essential thrombocythemia Myeloproliferative disorder Educational circumstance Erythrocytosis Leukocytosis Chief Complaint Admit Date 4 MO, LABS July 10, 2024 12: 43pm 3 MO - LABS July 10, 2024 12: 45pm Encounter for other preprocedural examin ation August 01, 2024 1:51pm Reason for Visit Admit Date Essential thrombocythemia July 10 12:43pm Myeloproliferative disorder July 10, 2024 12:43pm Essential thrombocythemia July 10 12:45pm Myeloproliferative disorder July 10, 2024 12:45pm Educational circumstance July 10 12:45pm Erythrocytosis July 10, 2024 12: 45pm Leukocytosis July 10, 2024 12: 45pm Thrombocytosis July 10, 2024 12: 45pm Chief Complaint Admit Date 4 MO, LABS July 10, 2024 12: 43pm 3 MO - LABS July 10, 2024 12: 45pm Encounter for other preprocedural examin ation August 01, 2024 1:51pm PREOP August 01, 2024 2:00p m ABN EKG ([facility]) September 20, 2024 2:25p m Chief Complaint Admit Date 4 MO, LABS July 10, 2024 12: 43pm Encounter for other preprocedural examin ation August 01, 2024 1:51pm PREOP August 01, 2024 2:00p m ABN EKG ([facility]) September 20, 2024 2:25p m 3 MO - LABS October 11, 2024 2:06 pm 3 MO - LABS October 11, 2024 2:15 pm Reason for Visit Admit Date Essential thrombocythemia July 10 12:43pm Myeloproliferative disorder July 10, 2024 12:43pm Abnormal ECG September 20, 2024 2:25p m Pre-op evaluation September 20, 2024 2:25p m Hyperlipidemia September 20, 2024 2:25p m Hypertension September 20, 2024 2:25p m Essential thrombocythemia October 11 2:06pm Myeloproliferative disorder October 11, 2 025 2:06pm Essential thrombocythemia October 11 2:15pm Myeloproliferative disorder October 11, 2 025 2:15pm Educational circumstance October 11, 2024 2:15pm Erythrocytosis October 11, 2024 2:15 pm Leukocytosis October 11, 2024 2:15 pm Thrombocytosis October 11, 2024 2:15 pm Advance Directives No Advanced Directives Records Found Advance Directive Response Recorded Date/ Time Advance Directives Yes April 19, 2014 4:40pm Living Will No December 02, 2018 12:53pm Power of Airport Tower Controller No November 12:53pm Advance Directive Response Recorded Date/ Time Advance Directives Yes April 19, 2014 4:40pm Living Will No April 12 8:37am Power of Airport Tower Controller No April 12, 2022 8:37am Advance Directive Response Recorded Date/ Time Advance Directives Yes April 19, 2014 5:40pm Living Will No April 12 9:37am Power of Airport Tower Controller No April 12, 2022 9:37am Advance Directive Response Recorded Date/ Time Advance Directives Yes April 19, 2014 5:40pm Living Will Yes September 03, 2022 11:45am Power of Airport Tower Controller Yes September 03 11:45am Advance Directive Response Recorded Date/ Time Name of Medical Power of Airport Tower Controller Dianne Conley contracts attorney September 28, 2022 1:21pm Advance Directives Yes April 19, 2014 4:40pm Living Will Yes September 28, 2022 1:21pm Power of Airport Tower Controller Yes September 28 1:21pm Advance Directive Response Recorded Date/ Time Living Will No June 27, 2018 2:53pm Do you have a Healthcare Power of Airport Tower Controller? No June 27, 2018 2:53pm Advance Directives Yes April 19, 2014 5:40pm Summary Purpose Family History No Family History Records Found Additional Source Comments Goals (unrecognized section and content) Goals may be documented in a n alternate sectionGoals may be documented in an alternate sectionGoals may be documented in an alternate sectionGoals may be documented in an alternate sectionGoals may be documented in an alternate sectionGoals may be documented in an alternate sectionGoals may be documented in an alternate sectionGoals may be documented in an alternate section Care Teams (unrecognized sec tion and content) Team Status: Active Member Role Status Dates Dr. Dago Emery MD Family Provider Active Dr. Dago Emery MD Primary Care Provider Active Team Status: Inactive Member Role Status Dates Dr. Dago Emery MD Primary Care Provider, Referring Provider Active Dr. Umang Pate MD Attending Provider Active Team Status: Active Member Role Status Dates Dr. Dago Emery MD Primary Care Provi joe, Family Provider, Referring Provider Active Dr. Umang Pate MD Attending Provider Active Team Status: Inactive Member Role Status Dates Dr. Dago Emery MD Primary Care Provider, Attending Provider Active Team Status: Inactive Member Role Status Dates Dr. Dago Emery MD Primary Care Provider Active Dr. Garret Yanez DO Emergency Provider Active Team Status: Inactive Member Role Status Dates Dr. Dago Emery MD Primary Care Provider Active Dr. Garret Yanez DO Attending Provider, Emergency Provider Active Team Status: Inactive Member Role Status Dates Dr. Dago Emery MD Primary Care Provider, Referring Provider Active Carolyn Ruvalcaba KNOCKOUT MAN, KNOCKOUT MAN-C Attending Provider Active Team Status: Inactive Member Role Status Dates Dr. Dago Emery MD Primary Care Provider Active Dr. Geo Rodriguez MD Attending Provider, Referring P milka Active Team Status: Inactive Member Role Status Dates Dr. Dago Emery MD Primary Care Provi joe, Admit Provider, Attending Provider, Referring Provider Active Team Status: Active Member Role Status Dates Dr. Dago Emery MD Primary Care Provider Active Team Status: Inactive Member Role Status Dates Dr. Dago Emery MD Primary Care Provider Active Start: July 10, 2024 End: July 10, 2024 Dr. Dago Emery MD Referring Provider Active Start: July 10, 2024 End: July 10, 2024 Carolyn Ruvalcaba KNOCKOUT MAN, KNOCKOUT MAN-C Attending Provider Active Start: July 10, 2024 End: July 10, 2024 Team Status: Active Member Role Status Dates Dr. Dago Emery MD Primary Care Provider Active Start: July 10, 2024 Dr. Dago Emery MD Family Provider Active Sta rt: July 10, 2024 Dr. Dago Emery MD Referring Provider Active Start: July 10, 2024 Dr. Umang Pate MD Attending Provider Active Start: July 10, 2024 Team Status: Inactive Member Role Status Dates Dr. Dago Emery MD Primary Care Provider Active Start: July 31, 2024 End: July 31, 2024 Dr. Dago Emery MD Attending Provider Active Start: July 31, 2024 End: July 31, 2024 Dr. Dago Emery MD Referring Provider Active Start: July 31, 2024 End: July 31, 2024 Team Status: Active Member Role Status Dates Dr. Dago Emery MD Primary Care Provider Active Start: August 01, 2024 Dr. Dago Emery MD Attending Provider Active Start: August 01, 2024 Dr. Dago Emery MD Referring Provider Active Start: August 01, 2024 Team Status: Inactive Member Role Status Dates Dr. Dago Emery MD Primary Care Provider Active Start: August 01, 2024 End: August 01, 2024 Dr. Dago Emery MD Attending Provider Active Start: August 01, 2024 End: August 01, 2024 Dr. Dago Emery MD Referring Provider Active Start: August 01, 2024 End: August 01, 2024 Team Status: Active Member Role/Relationship Status Dates Dr. Dago Emery MD Primary Care Provider Active Team Status: Inactive Member Role/Relationship Status Dates Dr. Dago Emery MD Primary Care Provider Active Start: July 10, 2024 End: July 10, 2024 Dr. Dago Emery MD Referring Provider Active Start: July 10, 2024 End: July 10, 2024 Carolyn Ruvalcaba KNOCKOUT MAN, KNOCKOUT MAN-C Attending Provider Active Start: July 10, 2024 End: July 10, 2024 Team Status: Active Member Role/Relationship Status Dates Dr. Dago Emery MD Primary Care Provider Active Start: July 10, 2024 Dr. Dago Emery MD Family Provider Active Sta rt: July 10, 2024 Dr. Dago Emery MD Referring Provider Active Start: July 10, 2024 Dr. Umang Pate MD Attending Provider Active Start: July 10, 2024 Team Status: Inactive Member Role/Relationship Status Dates Dr. Dago Emery MD Primary Care Provider Active Start: July 31, 2024 End: July 31, 2024 Dr. Dago Emery MD Attending Provider Active Start: July 31, 2024 End: July 31, 2024 Dr. Dago Emery MD Referring Provider Active Start: July 31, 2024 End: July 31, 2024 Team Status: Inactive Member Role/Relationship Status Dates Dr. Dago Emery MD Primary Care Provider Active Start: August 01, 2024 End: August 01, 2024 Dr. Dago Emery MD Attending Provider Active Start: August 01, 2024 End: August 01, 2024 Dr. Dago Emery MD Referring Provider Active Start: August 01, 2024 End: August 01, 2024 Team Status: Active Member Role/Relationship Status Dates Dr. Dago Emery MD Primary Care Provider Active Start: August 01, 2024 End: August 01, 2024 Dr. Dago Emery MD Referring Provider Active Start: August 01, 2024 End: August 01, 2024 Dr. Omero Armas MD Attending Provider Active Start: August 01, 2024 End: August 01, 2024 Team Status: Inactive Member Role/Relationship Status Dates Dr. Dago Emery MD Primary Care Provider Active Start: September 20, 2024 End: September 20, 2024 Dr. Dago Emery MD Referring Provider Active Start: September 20, 2024 End: September 20, 2024 Dr. Omero Armas MD Attending Provider Active Start: September 20, 2024 End: September 20, 2024 Team Status: Inactive Member Role/Relationship Status Dates Dr. Dago Emery MD Primary Care Provider Active Start: July 31, 2024 End: July 31, 2024 Dr. Dago Emery MD Attending Provider Active Start: July 31, 2024 End: July 31, 2024 Dr. Dago Emery MD Referring Provider Active Start: July 31, 2024 End: July 31, 2024 Team Status: Inactive Member Role/Relationship Status Dates Dr. Dago Emery MD Primary Care Provider Active Start: August 01, 2024 End: August 01, 2024 Dr. Dago Emery MD Attending Provider Active Start: August 01, 2024 End: August 01, 2024 Dr. Dago Emery MD Referring Provider Active Start: August 01, 2024 End: August 01, 2024 Team Status: Active Member Role/Relationship Status Dates Dr. Dago Emery MD Primary Care Provider Active Start: August 01, 2024 End: August 01, 2024 Dr. Dago Emery MD Referring Provider Active Start: August 01, 2024 End: August 01, 2024 Dr. Omero Armas MD Attending Provider Active Start: August 01, 2024 End: August 01, 2024 Team Status: Inactive Member Role/Relationship Status Dates Dr. Dago Emery MD Primary Care Provider Active Start: September 20, 2024 End: September 20, 2024 Dr. Dago Emery MD Referring Provider Active Start: September 20, 2024 End: September 20, 2024 Dr. Omero Armas MD Attending Provider Active Start: September 20, 2024 End: September 20, 2024 Team Status: Inactive Member Role/Relationship Status Dates Dr. Dago Emery MD Primary Care Provider Active Start: October 11, 2024 End: October 11, 2024 Dr. Dago Emery MD Referring Provider Active Start: October 11, 2024 End: October 11, 2024 Carolyn Ruvalcaba KNOCKOUT MAN, KNOCKOUT MAN-C Attending Provider Active Start: October 11, 2024 End: October 11, 2024 Team Status: Active Member Role/Relationship Status Dates Dr. Dago Emery MD Primary Care Provider Active Start: October 11, 2024 Dr. Dago Emery MD Family Provider Active Sta rt: October 11, 2024 Dr. Dago Emery MD Referring Provider Active Start: October 11, 2024 Dr. Umang Pate MD Attending Provider Active Start: October 11, 2024 INFORMATION SOURCE (unrecogn ized section and content) DATE CREATED AUTHOR 10/16/2024 [facility] FOR RECORDS PERTAINING TO PATIENTS WHO ARE OR HAVE BEEN ENROLLED IN A CHEMICAL DEPENDENCY/SUBSTANCEABUSE PROGRAM, SOME INFORMATION MAY BE OMITTED. This clinical summary was aggregated from multiple sources. Caution should be exercised in using it in the provision of clinical care. This summary normalizes information from multiple sources, and as a consequence, information in this document may materially change the coding, format and clinical context of patient data. In addition, data may be omitted in some cases. CLINICAL DECISIONS SHOULD BE BASED ON THE PRIMARY CLINICAL RECORDS. [facility] [employer] [facility]. provides no warranty or guarantee of the accuracy or completeness of information in this document.
[2024-10-17 00:13] VITALS: BP 151/75; PULSE 53; RESP 18; TEMP 36.4; O2SAT 95
[2024-10-17] MEDS: 0.9% Saline Lock 10 ML Syringe IV ×2 (04:01→17:05)
[2024-10-17 05:39] VITALS: BP 136/77; PULSE 56; RESP 18; TEMP 36.4; O2SAT 98
[2024-10-17 05:55] LABS: Hematocrit 30.5 % (37-47); Hemoglobin 10.2 g/dL (12.0-15.0); Mean Corp Hgb Conc 33.4 g/dL (32-36); Mean Corpuscular Volume 111.3 fL (81-99); Mean Platelet Vol. 10.6 fl (6.2-12.0); POSITIVE MORPHOLOGY YES; Platelet Count 176 K/mm3 (150-450); RBC Distribution Width CV 15.9 % (11.6-14.6); RBC Distribution Width SD 65.1 fl (35.1-43.9); Red Blood Count 2.74 M/mm3 (4.2-5.4); White Blood Count 7.1 K/mm3 (4.4-11.0)
[2024-10-17 05:57] LABS: Scan Indicated on CBC? Y/N YES- FLAGS NOTED
[2024-10-17 06:11] LABS: Anion Gap 12 (5-15); BUN 14 mg/dL (4-19); BUN/Creat Ratio 20.7 RATIO (10-20); Calcium,Total 8.6 mg/dL (7.6-11.0); Carbon Dioxide 20.7 mmol/L (21.0-32.0); Chloride 103 mmol/L (98-108); Estimated Creatinine Clearance 59.38 ml/min (50-250); Glucose 135 mg/dL (70-99); Potassium 3.9 mmol/L (3.3-5.1)
[2024-10-17] MEDS: Cefazolin 1 GM/50 ML BAG IV (06:30)
--- NOTE | 2024-10-17 08:57 | PN.HOSP_ITS ---
Subjective Subjective Doing well, no issues overnight. Pain is controlled. Objective Data Objective Data Vital Signs: Vital Signs Temp Pulse Resp BP Pulse Ox O2 Del Method O2 Flow Rate 97.5 F L 56 L 18 136/77 H 98 Room Air 2 10/17/24 05:39 10/17/24 05:39 10/17/24 05:39 10/17/24 05:39 10/17/24 05:39 10/17/24 05:39 10/16/24 22:13 Oxygen Flow Rate (L/min) 2 Oxygen Delivery Method Room Air Weight: 187 lb 6.287 oz Body Mass Index (BMI) 31.1 Intake & Output: Intake and Output for Last 24 Hours 10/16/24 10/17/24 10/18/24 03:59 03:59 03:59 Intake Total 3050.75 / 3050.75 50 / 50 Output Total 200 / 200 Balance 2850.75 / 2850.75 50 / 50 Lab / Micro Data 10/17/24 05:01 10/17/24 05:01 Labs: Laboratory Results - last 24 hr 10/16/24 11:05: POC Glucose 113 H 10/17/24 05:01: WBC 7.1, RBC 2.74 L, Hgb 10.2 L, Hct 30.5 L, MCV 111.3 H, MCH 37.2 H, MCHC 33.4, RDW Std Deviation 65.1 H, RDW Coeff of Maury 15.9 H, Plt Count 176, MPV 10.6, Sodium 136, Potassium 3.9, Chloride 103, Carbon Dioxide 20.7 L, Anion Gap 12, BUN 14, Creatinine 0.68 L, Estim Creat Clear Calc 59.38, Est GFR (MDRD) Non-Af 87, BUN/Creatinine Ratio 20.7 H, Glucose 135 H, Calcium 8.6 Micro: Microbiology 10/11/24 14:20 Nasal Secretion Nasal Screen MRSA/MSSA - Final 07/31/24 14:25 Swab (Method) Nasal Screen MRSA/MSSA - Final Radiography Diagnostic Testing: Radiology Impression Knee X-Ray 10/16/24 18:50 IMPRESSION: Status post total cemented left knee arthroplasty; intact hardware and expected postop changes. Reading Location: [id number] Physical Exam Narrative General: Alert, Oriented x3, Cooperative, No apparent distress HEENT: Atraumatic, PERRLA, EOMI, Normocephalic Oral: Moist Mucosa Neck: Supple, No JVD Lungs: Diminished, Normal air movement, No rhonchi, No wheeze, No rales Cardiovascular: Regular rate, Regular Rhythm, Normal S1, Normal S2, No murmurs Abdomen: Soft, Non Tender, Non-Distended, No Hepato-splenomegaly Extremities: No edema, Capillary Refill Less than 3 Seconds Skin: No rashes, No breakdown, dressing CDI Musculoskeletal: No Tenderness to Palpation of Joints or Extremities Neurological: No focal neurological deficits, moves all extremities, left lower extremity limited due to surgery Psych/Mental Status: Normal Affect, Appropriate Assessment & Plan Assessment/Plan (1) Status post total left knee replacement: PLAN: Plan 1. Left knee osteoarthritis status post left total knee replacement on 10/16/2024 ? Pain management per primary ? PT/OT ? 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 Stable from a medical perspective for discharge ?Call with questions 2. Removal of left tibial nail and interlocking screws, history of tibial fracture with intramedullary nail placement ? Patient had removal of left tibial nail and 4 interlocking screws during procedure on 10/16 as well. Multiple small incision sites on middle part of anterior carpio noted. Did have some postoperative blood oozing noted so Steri- Strips were placed and bandages with Scott wrap were replaced. ? Dressings are in place 3. Essential HTN ? Blood pressure stable ? She can resume her home blood pressure medications ? Will monitor make adjustments as necessary 4. Myeloproliferative disorder ? Follows with oncology, last office visit on 10/11. ? Has positive JAK2 mutation with persistent thrombocytosis. ? Continue with home hydroxyurea. 5. Hypothyroidism ? Stable ? Continue home Synthroid. DVT: Twice daily aspirin per Ortho Charges/Coding Visit Charges Inpatient E&M: 67974 Subs Hosp L2
[2024-10-17] MEDS: Cholecalciferol (VIT D3) 25 MCG TABLET (1,000 UNITS) PO (09:43)
[2024-10-17 10:42] VITALS: BP 138/71; PULSE 62; RESP 16; TEMP 36.1; O2SAT 99
--- NOTE | 2024-10-17 12:14 | CASEMGMT ---
Met with patient to review YOUSSEF form. YOUSSEF form and its content were verbally explained and patient?s questions were answered to the best of my ability. Patient voiced understanding and signed YOUSSEF form. Patient provided a copy of signed YOUSSEF form and original placed in patient?s chart. Patient had no further questions or concerns. This RN CM also discussed DC planning with the pt. Pt reports that she has pre-paid for a TCU stay. Per [facility], pt has already been accepted. Pt confirms with this global technical writer that this is still her intended plan and denies further questions or concerns at this time. MS[facility] CM team updated.
[2024-10-17 14:17] VITALS: BP 132/88; PULSE 74; RESP 15; TEMP 36.7; O2SAT 100
--- NOTE | 2024-10-17 15:54 | PN.ORTHO_ITS ---
Subjective Subjective Patient appears to be comfortable in bedside chair. Patient states that she did have an episode of vomiting this morning. Patient states that she is now getting Zofran. Patient states due to the Zofran her nausea and vomiting is now okay. Patient states that she is getting dizzy when she stands up. Patient states that her pain is relatively controlled at this time. Patient states that she worked with physical therapy and does get fatigued easily. Patient denies any shortness of breath, chest pain, calf pain. Patient denies any fevers, chills, signs of infection. Patient denies any new numbness or tingling. Patient denies any adverse events overnight. Objective Data Objective Data Vital Signs: Vital Signs Temp Pulse Resp BP Pulse Ox O2 Del Method O2 Flow Rate 98.0 F 74 15 132/88 H 100 Room Air 2 10/17/24 14:17 10/17/24 14:17 10/17/24 14:17 10/17/24 14:17 10/17/24 14:17 10/17/24 14:17 10/16/24 22:13 Oxygen Flow Rate (L/min) 2 Oxygen Delivery Method Room Air Weight: 85 kg Body Mass Index (BMI) 31.1 Intake & Output: Intake and Output for Last 24 Hours 10/15/24 10/16/24 10/17/24 23:59 23:59 23:59 Intake Total 3050.75 / 3050.75 150 / 150 Output Total 200 / 200 Balance 2850.75 / 2850.75 150 / 150 Lab / Micro Data 10/17/24 05:01 10/17/24 05:01 Labs: Laboratory Results - last 24 hr 10/17/24 05:01: WBC 7.1, RBC 2.74 L, Hgb 10.2 L, Hct 30.5 L, MCV 111.3 H, MCH 37.2 H, MCHC 33.4, RDW Std Deviation 65.1 H, RDW Coeff of Maury 15.9 H, Plt Count 176, MPV 10.6, Sodium 136, Potassium 3.9, Chloride 103, Carbon Dioxide 20.7 L, Anion Gap 12, BUN 14, Creatinine 0.68 L, Estim Creat Clear Calc 59.38, Est GFR (MDRD) Non-Af 87, BUN/Creatinine Ratio 20.7 H, Glucose 135 H, Calcium 8.6 Micro: Microbiology 10/11/24 14:20 Nasal Secretion Nasal Screen MRSA/MSSA - Final 07/31/24 14:25 Swab (Method) Nasal Screen MRSA/MSSA - Final Radiography Diagnostic Testing: Radiology Impression Knee X-Ray 10/16/24 18:50 IMPRESSION: Status post total cemented left knee arthroplasty; intact hardware and expected postop changes. Reading Location: [id number] Physical Exam Narrative JUDE hose in place bilaterally SCDs in place bilaterally Drainage noted to the distal one third of the incision. Drainage also noted over distal pin site incision. Dorsiflexion and plantarflexion are performed without pain or restriction. Sensation intact to light touch. Neurovascularly intact overall. Negative Homans bilaterally. Const alert, oriented x3 and no apparent distress Assessment & Plan Assessment/Plan (1) Status post total left knee replacement: PLAN: Status post robotic assisted left total knee replacement, removal left tibial nail, removal for interlocking screws postop day 1. 1. DVT prophylaxis: Patient will be taking aspirin 81 mg twice daily for 4 weeks postoperatively. Patient will be wearing JUDE hose for 2 weeks postoperatively. 2. Pain medications: Patient will be on Tylenol 1000 mg every 8 hours. Patient will be taking oxycodone as needed for postoperative pain medications. 3. Constipation: Patient was instructed to take senna as needed until her first bowel movement to decrease risk of infection following surgery. Patient was instructed if he has not yet had a bowel movement in 3 days to call our office. 4. Patient states that she did have an episode of vomiting this morning. Patient states that she has not been getting medicine for nausea and vomiting has been doing well. Patient was educated she can continue to take Zofran as needed. 5. Physical exam: Patient will continue to be weightbearing as tolerated with walker. 6. H&H: 10.2/30.5. Patient's vitals are stable. At this time hemoglobin is above 10 and we do not need to proceed with anemia protocol. Will continue to monitor. 7. Incentive spirometry: Patient was instructed to continue to use the incentive spirometer every hour that they are awake for the first week to exercise the lung and decrease risk of postoperative lung infection 8. Patient has to follow-up for postoperative instructions 9. Doxycycline: Patient will be on doxycycline for 2 weeks postoperatively due to nature of removal surgery. Patient was educated on the risk of sunburn while taking doxycycline. Patient was educated to take a probiotic while taking doxycycline. Patient voiced understanding. 10. Medicine is currently on board and feels that patient is medically stable at this time. 11. Disposition: At this time patient has private paid for a 20-day visit to the TCU. At this time we are currently awaiting getting a bed in TCU. Once patient gets a bed in TCU we will plan to discharge patient to [facility] TCU. Patient was educated she can continue to take her Zofran as needed for nausea and vomiting. Patient will need to get physical therapy done in the TCU. Patient does have 2-week follow-up visit scheduled to do a wound check. Patient was encouraged to call with any questions, concerns, new problems.
--- NOTE | 2024-10-17 18:40 | RAD_ITS ---
PROCEDURE: LEFT ANKLE MIN 3 VIEWS 10/17/2024 REASON FOR EXAM: PAIN TECHNIQUE: LEFT ANKLE MIN 3 VIEWS COMPARISON: None. FINDINGS: There is an acute transversely oriented nondisplaced fracture through the distal tibial metadiaphysis. No additional acute fracture appreciated. No dislocation. Ankle mortise is congruent. Chronic fracture deformities of the visualized mid-distal tibial and fibular diaphyses, with ghost tracts reflecting previous orthopedic fixation hardware. Marked diffuse qualitative osteopenia. Mild degenerative changes of the intertarsal joints. Mild dorsal and plantar calcaneal spurring. Generalized soft tissue swelling about the lower extremity/ankle. No radiopaque foreign body. RAD/Ankle min 3 Views IMPRESSION: Acute nondisplaced impacted fracture of the distal left tibial metadiaphysis, w ith no intra-articular extension appreciated. Congruent ankle mortise. Reading Location: [id number]
[2024-10-17 20:50] VITALS: BP 122/61; PULSE 73; RESP 15; TEMP 36.6; O2SAT 97
[2024-10-17 21:00] VITALS: RESP 15; O2SAT 95
--- NOTE | 2024-10-17 21:42 | CT_ITS ---
PROCEDURE: EXTREMITY LOWER WITHOUT CONTRA 10/17/2024 REASON FOR EXAM: PAIN TECHNIQUE: EXTREMITY LOWER WITHOUT CONTRA Coronal and Sagittal reconstruction series were provided. One or more dose reduction techniques were used (e.g., Automated exposure control, adjustment of the mA and/or kV according to patient size, use of iterative reconstruction technique). RADIATION DOSE SUMMARY: CTDlvol: 15 mGy DLP: 657 mGycm COMPARISON: X-ray 10/17/2024 FINDINGS: Old mid shaft tibia and fibular fractures with complete healing. Remnants of previous tibial nail and fixation screws incidentally noted. In the tibia, distal meta diaphyseal junction, there is an acute fracture, obliquely horizontal in orientation, that does not extend to the articular surface. The distal fibula shows no acute injury. Ankle joint is intact. No acute foot injury noted. CT/Extremity Lower without Contra IMPRESSION: Acute distal tibial meta diaphyseal junction fracture, no extension to the kayden cular surface. No acute distal fibular fracture associated. No dislocation. Reading Location: [place] [id number]
[2024-10-18 03:00] VITALS: BP 169/84; PULSE 77; RESP 15; RESP 16; TEMP 36.9; O2SAT 98
[2024-10-18 06:27] LABS: Hematocrit 28.2 % (37-47); Hemoglobin 9.4 g/dL (12.0-15.0); Immature Granulocytes Count 0.020 X10^3/uL (0.0-0.0); Mean Corp Hgb Conc 33.3 g/dL (32-36); Mean Corpuscular Volume 110.6 fL (81-99); Mean Platelet Vol. 10.4 fl (6.2-12.0); NRBC Flagged by Analyzer 0 % (0-5); Platelet Count 176 K/mm3 (150-450); RBC Distribution Width CV 15.6 % (11.6-14.6); RBC Distribution Width SD 62.7 fl (35.1-43.9); Red Blood Count 2.55 M/mm3 (4.2-5.4); White Blood Count 6.8 K/mm3 (4.4-11.0)
[2024-10-18 06:55] LABS: Anion Gap 11 (5-15); BUN 17 mg/dL (4-19); BUN/Creat Ratio 18.0 RATIO (10-20); Calcium,Total 8.5 mg/dL (7.6-11.0); Carbon Dioxide 22.0 mmol/L (21.0-32.0); Chloride 99 mmol/L (98-108); Estimated Creatinine Clearance 51.63 ml/min (50-250); Glucose 96 mg/dL (70-99); Potassium 3.7 mmol/L (3.3-5.1)
--- NOTE | 2024-10-18 08:26 | PCM.PN.ORT ---
Subjective Subjective Patient is anxious and down in bed upon examination. Patient states that she is upset that she cannot bear weight. Patient states that she is very depressed at this point. Patient states that her pain is controlled. Patient states that she needs to keep the television on and have someone to talk to to avoid getting too sad. Patient denies any new numbness or tingling. Patient denies any shortness of breath, chest pain, calf pain. Patient denies any adverse effects overnight. Objective Data Objective Data Vital Signs: Vital Signs Temp Pulse Resp BP Pulse Ox O2 Del Method O2 Flow Rate 98.4 F 77 16 169/84 H 98 Room Air 2 10/18/24 03:00 10/18/24 03:00 10/18/24 03:00 10/18/24 03:00 10/18/24 03:00 10/18/24 03:00 10/16/24 22:13 Oxygen Flow Rate (L/min) 2 Oxygen Delivery Method Room Air Weight: 85 kg Body Mass Index (BMI) 31.1 Intake & Output: Intake and Output for Last 24 Hours 10/16/24 10/17/24 10/18/24 23:59 23:59 23:59 Intake Total 3050.75 / 3050.75 400 / 400 Output Total 200 / 200 300 / 300 Balance 2850.75 / 2850.75 400 / 400 -300 / -300 Lab / Micro Data 10/18/24 06:14 10/18/24 06:14 Labs: Laboratory Results - last 24 hr 10/18/24 06:14: WBC 6.8, RBC 2.55 L, Hgb 9.4 L, Hct 28.2 L, MCV 110.6 H, MCH 36.9 H, MCHC 33.3, RDW Std Deviation 62.7 H, RDW Coeff of Maury 15.6 H, Plt Count 176, MPV 10.4, Immature Gran % (Auto) 0.300, Neut % (Auto) 73.5 H, Lymph % (Auto) 11.1 L, Blanco % (Auto) 14.6 H, Eos % (Auto) 0.4, Baso % (Auto) 0.1, Absolute Neuts (auto) 5.0, Absolute Lymphs (auto) 0.76 L, Nucleated RBC % 0, Sodium 133, Potassium 3.7, Chloride 99, Carbon Dioxide 22.0, Anion Gap 11, BUN 17, Creatinine 0.92, Estim Creat Clear Calc 51.63, Est GFR (MDRD) Non-Af 63, BUN/Creatinine Ratio 18.0, Glucose 96, Calcium 8.5 Micro: Microbiology 10/11/24 14:20 Nasal Secretion Nasal Screen MRSA/MSSA - Final 07/31/24 14:25 Swab (Method) Nasal Screen MRSA/MSSA - Final Radiography Diagnostic Testing: Radiology Impression Ankle X-Ray 10/17/24 18:40 IMPRESSION: Acute nondisplaced impacted fracture of the distal left tibial metadiaphysis, with no intra-articular extension appreciated. Congruent ankle mortise. Reading Location: [id number] Lower Extremity CT 10/17/24 21:42 IMPRESSION: Acute distal tibial meta diaphyseal junction fracture, no extension to the articular surface. No acute distal fibular fracture associated. No dislocation. Reading [facility] Physical Exam Narrative JUDE hose in place bilaterally SCDs in place bilaterally Scott wrap in place on operative leg for compression. Drainage noted to the distal one third of Mepilex dressing. Drainage noted on dressing medial pin site. Dorsiflexion and plantarflexion are performed without pain or restriction. Sensation intact to light touch. Neurovascularly intact overall. Negative Homans bilaterally. Const alert, oriented x3 and no apparent distress General Appearance: anxious Assessment & Plan Assessment/Plan (1) Status post total left knee replacement: PLAN: Status post robotic assisted left total knee replacement, removal left tibial nail, removal for interlocking screws postop day 1. 1. DVT prophylaxis: Patient will be taking aspirin 81 mg twice daily for 4 weeks postoperatively. Patient will be wearing JUDE hose for 2 weeks postoperatively. 2. Pain medications: Patient will be on Tylenol 1000 mg every 8 hours. Patient will be taking oxycodone as needed for postoperative pain medications. 3. Constipation: Patient was instructed to take senna as needed until her first bowel movement to decrease risk of infection following surgery. Patient was instructed if he has not yet had a bowel movement in 3 days to call our office. 4. Patient did have ankle pain yesterday so an x-ray was ordered as well as then a stat CT. Images were reviewed with Dr. Machuca. CT did show an acute distal tibia fracture without involvement of articular surface. At this point we will plan to place patient in a walking boot and make toe-touch weightbearing on the operative side. Order for boot was placed. 5. Physical therapy: Patient will now be toe-touch weightbearing on operative side with a walker. 6. H&H: 9.4/28.2. At this point due to patient's hemoglobin dropping below 10 we will plan to start anemia protocol with iron and folic acid. 7. Incentive spirometry: Patient was instructed to continue to use the incentive spirometer every hour that they are awake for the first week to exercise the lung and decrease risk of postoperative lung infection 8. Patient has to follow-up for postoperative instructions 9. Doxycycline: Patient will be on doxycycline for 2 weeks postoperatively due to nature of removal surgery. Patient was educated on the risk of sunburn while taking doxycycline. Patient was educated to take a probiotic while taking doxycycline. Patient voiced understanding. 10. Medicine is currently on board and feels that patient is medically stable at this time. 11. Disposition: At this time patient has private paid for a 20-day visit to the TCU. At this time we are currently awaiting getting a bed in TCU. At this time since patient's weightbearing status has been changed we will plan to keep patient for another night to continue working with physical therapy. Patient's weightbearing status was changed to toe-touch weightbearing with the boot on on the operative side. Patient will need physical therapy daily while in TCU. Patient does have 2-week follow-up visit scheduled with our office. Patient was encouraged to call with any questions, concerns, new problems.
[2024-10-18] MEDS: Polyethylene Glycol 3350 17 GM PACKET PO ×2 (08:53→20:49)
[2024-10-18] MEDS: Cholecalciferol (VIT D3) 25 MCG TABLET (1,000 UNITS) PO (08:54)
[2024-10-18 09:57] VITALS: BP 124/69; PULSE 64; RESP 18; TEMP 36.7; O2SAT 97
--- NOTE | 2024-10-18 10:15 | PN.HOSP_ITS ---
Subjective Subjective Had a transient episode of hypotension that resolved with her home blood pressure medications Objective Data Objective Data Vital Signs: Vital Signs Temp Pulse Resp BP Pulse Ox O2 Del Method O2 Flow Rate 98.1 F 64 18 124/69 H 97 Room Air 2 10/18/24 09:57 10/18/24 09:57 10/18/24 09:57 10/18/24 09:57 10/18/24 09:57 10/18/24 09:57 10/16/24 22:13 Oxygen Flow Rate (L/min) 2 Oxygen Delivery Method Room Air Weight: 187 lb 6.287 oz Body Mass Index (BMI) 31.1 Intake & Output: Intake and Output for Last 24 Hours 10/17/24 10/18/24 10/19/24 03:59 03:59 03:59 Intake Total 3050.75 / 3050.75 400 / 400 0 / 0 Output Total 200 / 200 300 / 300 Balance 2850.75 / 2850.75 400 / 400 -300 / -300 Lab / Micro Data 10/18/24 06:14 10/18/24 06:14 Labs: Laboratory Results - last 24 hr 10/18/24 06:14: WBC 6.8, RBC 2.55 L, Hgb 9.4 L, Hct 28.2 L, MCV 110.6 H, MCH 36.9 H, MCHC 33.3, RDW Std Deviation 62.7 H, RDW Coeff of Maury 15.6 H, Plt Count 176, MPV 10.4, Immature Gran % (Auto) 0.300, Neut % (Auto) 73.5 H, Lymph % (Auto) 11.1 L, Hardeman % (Auto) 14.6 H, Eos % (Auto) 0.4, Baso % (Auto) 0.1, Absolute Neuts (auto) 5.0, Absolute Lymphs (auto) 0.76 L, Nucleated RBC % 0, Sodium 133, Potassium 3.7, Chloride 99, Carbon Dioxide 22.0, Anion Gap 11, BUN 17, Creatinine 0.92, Estim Creat Clear Calc 51.63, Est GFR (MDRD) Non-Af 63, BUN/Creatinine Ratio 18.0, Glucose 96, Calcium 8.5 Micro: Microbiology 10/11/24 14:20 Nasal Secretion Nasal Screen MRSA/MSSA - Final 07/31/24 14:25 Swab (Method) Nasal Screen MRSA/MSSA - Final Radiography Diagnostic Testing: Radiology Impression Ankle X-Ray 10/17/24 18:40 IMPRESSION: Acute nondisplaced impacted fracture of the distal left tibial metadiaphysis, with no intra-articular extension appreciated. Congruent ankle mortise. Reading Location: [facility] Lower Extremity CT 10/17/24 21:42 IMPRESSION: Acute distal tibial meta diaphyseal junction fracture, no extension to the articular surface. No acute distal fibular fracture associated. No dislocation. Reading Location: [place] [id number] Physical Exam Narrative General: Alert, Oriented x3, Cooperative, No apparent distress HEENT: Atraumatic, PERRLA, EOMI, Normocephalic Oral: Moist Mucosa Neck: Supple, No JVD Lungs: Diminished, Normal air movement, No rhonchi, No wheeze, No rales Cardiovascular: Regular rate, Regular Rhythm, Normal S1, Normal S2, No murmurs Abdomen: Soft, Non Tender, Non-Distended, No Hepato-splenomegaly Extremities: No edema, Capillary Refill Less than 3 Seconds Skin: No rashes, No breakdown, dressing CDI, toe-touch weightbearing Musculoskeletal: Ankle pain currently in a boot Neurological: No focal neurological deficits, moves all extremities, left lower extremity limited due to surgery Psych/Mental Status: Normal Affect, Appropriate Assessment & Plan Assessment/Plan (1) Status post total left knee replacement: PLAN: Plan 1. Left knee osteoarthritis status post left total knee replacement on 10/16/2024/ankle fracture ? Pain management per primary ? PT/OT ? Slight drop in her hemoglobin to 9.4, will recheck this afternoon and again in the morning ? Continue with doxycycline ? Yesterday she was complaining of ankle pain so an x-ray and a CT scan were obtained which demonstrated an acute distal tibial fracture. She is in a walking boot and toe-touch weightbearing on the operative side 2. Removal of left tibial nail and interlocking screws, history of tibial fracture with intramedullary nail placement ? Patient had removal of left tibial nail and 4 interlocking screws during procedure on 10/16 as well. Multiple small incision sites on middle part of anterior carpio noted. Did have some postoperative blood oozing noted so Steri- Strips were placed and bandages with Scott wrap were replaced. ? Dressings are in place 3. Essential HTN ? Blood pressure stable ? She can resume her home blood pressure medications ? Will monitor make adjustments as necessary 4. Myeloproliferative disorder ? Follows with oncology, last office visit on 10/11. ? Has positive JAK2 mutation with persistent thrombocytosis. ? Continue with home hydroxyurea. 5. Hypothyroidism ? Stable ? Continue home Synthroid. DVT: Twice daily aspirin per Ortho Charges/Coding Visit Charges Inpatient E&M: 67124 Subs Hosp L2
--- NOTE | 2024-10-18 11:05 | CASEMGMT ---
Received notification from charge nurse that Silvana declined referral for boot for pt. Scanned order in and emailed to Silvana Emerson. He will deliver to pt.
[2024-10-18 14:01] VITALS: BP 139/56; PULSE 68; RESP 18; TEMP 36.6; O2SAT 99
[2024-10-18 15:16] LABS: Hematocrit 28.2 % (37-47); Hemoglobin 9.5 g/dL (12.0-15.0)
[2024-10-18 19:33] VITALS: BP 106/57; PULSE 61; RESP 15; TEMP 36.9; O2SAT 96
[2024-10-18 21:00] VITALS: O2SAT 97
[2024-10-19 02:00] VITALS: BP 146/65; PULSE 60; RESP 15; TEMP 36.5; O2SAT 95
[2024-10-19 06:17] LABS: Hematocrit 27.6 % (37-47); Hemoglobin 9.4 g/dL (12.0-15.0); Immature Granulocytes Count 0.050 X10^3/uL (0.0-0.0); Mean Corp Hgb Conc 34.1 g/dL (32-36); Mean Corpuscular Volume 110.8 fL (81-99); Mean Platelet Vol. 11.0 fl (6.2-12.0); NRBC Flagged by Analyzer 0 % (0-5); Platelet Count 181 K/mm3 (150-450); RBC Distribution Width CV 15.5 % (11.6-14.6); RBC Distribution Width SD 62.7 fl (35.1-43.9); Red Blood Count 2.49 M/mm3 (4.2-5.4); White Blood Count 7.8 K/mm3 (4.4-11.0)
[2024-10-19 06:49] LABS: Anion Gap 11 (5-15); BUN 17 mg/dL (4-19); BUN/Creat Ratio 16.2 RATIO (10-20); Calcium,Total 8.9 mg/dL (7.6-11.0); Carbon Dioxide 21.9 mmol/L (21.0-32.0); Chloride 98 mmol/L (98-108); Estimated Creatinine Clearance 46.57 ml/min (50-250); Glucose 94 mg/dL (70-99); Potassium 4.1 mmol/L (3.3-5.1)
[2024-10-19] MEDS: Cholecalciferol (VIT D3) 25 MCG TABLET (1,000 UNITS) PO (08:26)
[2024-10-19] MEDS: Polyethylene Glycol 3350 17 GM PACKET PO ×2 (08:27→19:49)
[2024-10-19 08:35] VITALS: BP 123/69; PULSE 59; RESP 17; TEMP 36.8; O2SAT 97
[2024-10-19 09:00] VITALS: O2SAT 97
--- NOTE | 2024-10-19 13:06 | PCM.PN.ORT ---
Subjective Subjective The patient was sitting in bed upon examination. Patient denies any chest pain, shortness of breath, or calf pain. Patient denies abdominal pain. Patient has not had a bowel movement postoperatively. She has been getting stool softener and prune juice. Patient states when she is not eating she could go 5+ days without bowel movements. Her pain has been controlled on medications. Patient earlier this week did have some hypotension but her blood pressure has been more stable now. She has had drop in hemoglobin which has been stable at 9.4. Recent labs do show some hyponatremia currently at 131. Case was discussed with medicine and they are going to give her some fluids. Patient did have a CT scan which did reveal an acute tibial tibia fracture. She has weightbearing restrictions in which she has now using a pneumatic foam walking boot. She is toe-touch weightbearing. She has been working with therapy. Objective Data Objective Data Vital Signs: Vital Signs Temp Pulse Resp BP Pulse Ox O2 Del Method O2 Flow Rate 98.3 F 59 L 17 123/69 H 97 Room Air 2 10/19/24 08:35 10/19/24 08:35 10/19/24 08:35 10/19/24 08:35 10/19/24 09:00 10/19/24 09:00 10/16/24 22:13 Oxygen Flow Rate (L/min) 2 Oxygen Delivery Method Room Air Weight: 85 kg Body Mass Index (BMI) 31.1 Intake & Output: Intake and Output for Last 24 Hours 10/17/24 10/18/24 10/19/24 23:59 23:59 23:59 Intake Total 400 / 400 0 / 400 800 / 800 Output Total 500 / 500 Balance 400 / 400 -500 / -100 800 / 800 Lab / Micro Data 10/19/24 05:54 10/19/24 05:54 Labs: Laboratory Results - last 24 hr 10/18/24 15:07: Hgb 9.5 L, Hct 28.2 L 10/19/24 05:54: WBC 7.8, RBC 2.49 L, Hgb 9.4 L, Hct 27.6 L, MCV 110.8 H, MCH 37.8 H, MCHC 34.1, RDW Std Deviation 62.7 H, RDW Coeff of Maury 15.5 H, Plt Count 181, MPV 11.0, Immature Gran % (Auto) 0.600, Neut % (Auto) 66.7, Lymph % (Auto) 14.4 L, Eddy % (Auto) 17.1 H, Eos % (Auto) 0.9, Baso % (Auto) 0.3, Absolute Neuts (auto) 5.2, Absolute Lymphs (auto) 1.13, Nucleated RBC % 0, Sodium 131 L, Potassium 4.1, Chloride 98, Carbon Dioxide 21.9, Anion Gap 11, BUN 17, Creatinine 1.02, Estim Creat Clear Calc 46.57 L, Est GFR (MDRD) Non-Af 55 L, BUN/Creatinine Ratio 16.2, Glucose 94, Calcium 8.9 Micro: Microbiology 10/11/24 14:20 Nasal Secretion Nasal Screen MRSA/MSSA - Final 07/31/24 14:25 Swab (Method) Nasal Screen MRSA/MSSA - Final Radiography Diagnostic Testing: Radiology Impression Knee X-Ray 10/16/24 15:37 IMPRESSION: Intraoperative fluoroscopic services provided for intramedullary nailing of the tibia. Reading Location: [id number] Physical Exam Narrative Vital signs stable and afebrile. Patient is complaining of some dizziness and nausea at this time. Patient did have some pale color to the face after working with therapy. Nursing while in the room her vitals were overall stable with blood glucose 120. Heart rate 95. Blood pressure was stable. Patient is able to plantarflex and dorsiflex actively. Sensation is intact to light touch to saphenous, sural, superficial and deep peroneal, and tibial distribution. Drainage over the main Mepilex dressing has been stable over the distal one third. There is drainage at the pin site. Scott wrap for the left lower extremity in place. Negative Homans bilaterally, negative signs and symptoms of DVT. Const alert, oriented x3 and no apparent distress Assessment & Plan Assessment/Plan (1) Status post total left knee replacement: PLAN: Status post robotic assisted left total knee replacement, removal left tibial nail, removal for interlocking screws postop day 3. Patient also has acute distal tibial metadiaphyseal junction fracture left lower extremity 1. DVT prophylaxis: Patient will be taking aspirin 81 mg twice daily for 4 weeks postoperatively. Patient will be wearing JUDE hose for 2 weeks postoperatively. 2. Pain medications: Patient will be on Tylenol 1000 mg every 8 hours. Patient will be taking oxycodone as needed for postoperative pain medications. 3. Constipation: Patient has been placed on MiraLAX by medicine. She has been using prune juice. Patient has not been eating. She states she has no appetite. She reports when she is not eating much she can go 5+ days without bowel movement. She currently has some nausea which we will use the Zofran as needed. She denies any abdominal pain. 4. Left distal tibia fracture: CT images were reviewed with Dr. Machuca from October 17, 2024. CT did show an acute distal tibia fracture without involvement of articular surface. Patient is currently using the pneumatic foam walking boot. She is toe-touch weightbearing with use of walker for 6 weeks postoperatively. 5. Physical therapy: Patient will now be toe-touch weightbearing on operative side with a walker. She will be toe-touch weightbearing for 6 weeks postoperatively. 6. H&H: 9.4/27.6. At this point due to patient's hemoglobin dropping below 10 we will plan to start anemia protocol with iron and folic acid. 7. Incentive spirometry: Patient was instructed to continue to use the incentive spirometer every hour that they are awake for the first week to exercise the lung and decrease risk of postoperative lung infection 8. Patient has to follow-up for postoperative instructions 9. Doxycycline: Patient will be on doxycycline for 2 weeks postoperatively due to nature of removal surgery. Patient was educated on the risk of sunburn while taking doxycycline. Patient was educated to take a probiotic while taking doxycycline. Patient voiced understanding. 10. Continue postoperative medical treatment per medicine: Case was discussed with medicine with her hyponatremia at 131. Patient has not been eating. Appreciate recommendations from medicine with regards to the hyponatremia and lack of bowel movement. Medicine states they will give patient IV fluids. Continue to monitor. 11. Disposition: At this time I do not feel patient is ready for discharge to detention facility. Due to the acute distal tibia fracture this has changed patient's postoperative treatment plan. She has now toe-touch weightbearing on the left lower extremity. She is working with physical therapy with regards to these restrictions. Patient will require a 3 night midnight stay and plan will be for transition to the transitional care unit on Wednesday, October 21, 2024. Appreciate recommendations from medicine with regards to patient's hyponatremia and medical comorbidities. Her vitals today have been stable. We will repeat lab work tomorrow. Lab orders have been placed in chart. This dictation was created using voice recognition software. Phonetic and/or grammatical errors may exist.
[2024-10-19] MEDS: 0.9% Saline Lock 10 ML Syringe IV (13:14)
[2024-10-19 13:16] VITALS: PULSE 76
[2024-10-19 14:00] VITALS: BP 155/76; PULSE 70; RESP 17; TEMP 36.8; O2SAT 97
[2024-10-19] MEDS: 0.9% Normal Saline (1000mL) 1,000 ML 75 ML IV (14:19)
[2024-10-19 20:00] VITALS: BP 142/49; PULSE 65; RESP 16; TEMP 36.5; O2SAT 95
[2024-10-20] MEDS: 0.9% Normal Saline (1000mL) 1,000 ML 75 ML IV (02:54)
[2024-10-20 03:11] VITALS: BP 163/71; PULSE 65; RESP 16; TEMP 37; O2SAT 95
[2024-10-20 06:56] LABS: Hematocrit 27.0 % (37-47); Hemoglobin 9.1 g/dL (12.0-15.0); Mean Corp Hgb Conc 33.7 g/dL (32-36); Mean Corpuscular Volume 111.6 fL (81-99); Mean Platelet Vol. 10.8 fl (6.2-12.0); Platelet Count 210 K/mm3 (150-450); RBC Distribution Width CV 15.5 % (11.6-14.6); RBC Distribution Width SD 64.2 fl (35.1-43.9); Red Blood Count 2.42 M/mm3 (4.2-5.4); White Blood Count 7.0 K/mm3 (4.4-11.0)
[2024-10-20 07:23] LABS: Anion Gap 10 (5-15); BUN 15 mg/dL (4-19); BUN/Creat Ratio 17.8 RATIO (10-20); Calcium,Total 8.3 mg/dL (7.6-11.0); Carbon Dioxide 21.4 mmol/L (21.0-32.0); Chloride 105 mmol/L (98-108); Estimated Creatinine Clearance 55.24 ml/min (50-250); Glucose 82 mg/dL (70-99); Potassium 3.8 mmol/L (3.3-5.1)
[2024-10-20 09:00] VITALS: O2SAT 98
[2024-10-20] MEDS: Cholecalciferol (VIT D3) 25 MCG TABLET (1,000 UNITS) PO (10:25)
[2024-10-20] MEDS: Polyethylene Glycol 3350 17 GM PACKET PO ×2 (10:25→22:35)
[2024-10-20] MEDS: Ensure Surgery 237 ML LIQUID PO (11:37)
--- NOTE | 2024-10-20 11:44 | PN.ORTHO_ITS ---
Subjective Subjective Patient is sitting comfortably in bedside chair. Patient states that she is having a much better afternoon then this morning. Patient states that she did have an anxiety attack this morning after not sleeping all night. Patient was placed on hydroxyzine as needed by medicine. Patient states she is still not had a bowel movement. Patient states they are giving her boost this afternoon as that typically increases her bowel movements. Patient states that she can go days without having a bowel movement if she does not eat. Patient states that her nausea and dizziness have gotten better but she still has some residual dizziness. Patient states that she seems to finally be getting her appetite back. Patient states that she is doing well with physical therapy and trying to figure out how to be toe-touch weightbearing on her walker. Patient denies any shortness of breath, chest pain, calf pain. Patient denies any fevers, chills, signs of infection. Objective Data Objective Data Vital Signs: Vital Signs Temp Pulse Resp BP Pulse Ox O2 Del Method O2 Flow Rate 98.6 F 65 16 163/71 H 98 Room Air 2 10/20/24 03:11 10/20/24 03:11 10/20/24 03:11 10/20/24 03:11 10/20/24 09:00 10/20/24 09:00 10/16/24 22:13 Oxygen Flow Rate (L/min) 2 Oxygen Delivery Method Room Air Weight: 85 kg Body Mass Index (BMI) 31.1 Intake & Output: Intake and Output for Last 24 Hours 10/18/24 10/19/24 10/20/24 23:59 23:59 23:59 Intake Total 0 / 400 2200 / 2200 943.75 / 943.75 Output Total 500 / 500 1550 / 1550 Balance -500 / -100 2200 / 2200 -606.25 / -606.25 Lab / Micro Data 10/20/24 05:57 10/20/24 05:57 Labs: Laboratory Results - last 24 hr 10/19/24 12:59: POC Glucose 120 H 10/20/24 05:57: WBC 7.0, RBC 2.42 L, Hgb 9.1 L, Hct 27.0 L, MCV 111.6 H, MCH 37.6 H, MCHC 33.7, RDW Std Deviation 64.2 H, RDW Coeff of Maury 15.5 H, Plt Count 210, MPV 10.8, Sodium 136, Potassium 3.8, Chloride 105, Carbon Dioxide 21.4, Anion Gap 10, BUN 15, Creatinine 0.86, Estim Creat Clear Calc 55.24, Est GFR (MDRD) Non-Af 68, BUN/Creatinine Ratio 17.8, Glucose 82, Calcium 8.3 Micro: Microbiology 10/11/24 14:20 Nasal Secretion Nasal Screen MRSA/MSSA - Final 07/31/24 14:25 Swab (Method) Nasal Screen MRSA/MSSA - Final Physical Exam Narrative Vital signs stable. JUDE hose in place bilaterally. Walking boot in place on operative foot Stable distal one third drainage on Mepilex dressing. Scott wrap in place on operative leg. Dorsiflexion and plantarflexion are performed without pain or restriction. Sensation intact to light touch. Neurovascular intact overall. Negative Homans bilaterally. Const alert, oriented x3 and no apparent distress Assessment & Plan Assessment/Plan (1) Status post total left knee replacement: PLAN: Status post robotic assisted left total knee replacement, removal left tibial nail, removal for interlocking screws postop day 4. Patient also has acute distal tibial metadiaphyseal junction fracture left lower extremity 1. DVT prophylaxis: Patient will be taking aspirin 81 mg twice daily for 4 weeks postoperatively. Patient will be wearing JUDE hose for 2 weeks postoperatively. 2. Pain medications: Patient will be on Tylenol 1000 mg every 8 hours. Patient will be taking oxycodone as needed for postoperative pain medications. 3. Constipation: Patient has been placed on MiraLAX by medicine. Patient has also been drinking prune juice and is getting boost today. Patient states that her appetite has started to come back today. Patient states that is not unusual for her not to have a bowel movement when she is not eating. Patient states that her nausea and dizziness has gotten much better today. Patient still has Zofran to use as needed. 4. Left distal tibia fracture: CT images were reviewed with Dr. Machuca from October 17, 2024. CT did show an acute distal tibia fracture without involvement of articular surface. Patient is now using a walking boot and will be toe-touch weightbearing with walker for 6 weeks postoperatively. 5. Physical therapy: Patient will now be toe-touch weightbearing on operative side with a walker. She will be toe-touch weightbearing for 6 weeks postoperatively. 6. H&H: 9.1/27.0. Hemoglobin did drop from 9.4 yesterday. Patient is currently following anemia protocol and taking ferrous sulfate and folic acid daily. 7. Incentive spirometry: Patient was instructed to continue to use the incentive spirometer every hour that they are awake for the first week to exercise the lung and decrease risk of postoperative lung infection 8. Patient has to follow-up for postoperative instructions 9. Doxycycline: Patient will be on doxycycline for 2 weeks postoperatively due to nature of removal surgery. Patient was educated on the risk of sunburn while taking doxycycline. Patient was educated to take a probiotic while taking doxycycline. Patient voiced understanding. 10. Continue postoperative medical treatment per medicine: Case was discussed with medicine. 11. Hyponatremia: Looks to have resolved with sodium level now at 136. 12. Anxiety: Patient did have an anxiety attack this morning after not sleeping all night. Patient has not been placed on hydroxyzine by medicine for as needed anxiety. 11. Disposition: I do not feel patient is ready for discharge to nursing home facility at this time. Due to the acute distal tibia fracture this has changed patient's postoperative treatment plan. Patient is now getting used to being toe-touch weightbearing on the operative side. Patient's hyponatremia has resolved but patient has since had an anxiety attack this morning. Patient is also having some residual nausea and dizziness. She is working with physical therapy with regards to being toe-touch weightbearing with a walker. Patient will require a 3 night midnight stay and plan will be for transition to the transitional care unit on Wednesday, October 21, 2024. Appreciate recommendations from medicine with regards to patient's medical comorbidities and anxiety. Will repeat CBC and BMP tomorrow. Patient was encouraged to call with any questions, concerns, new problems. This dictation was created using voice recognition software. Phonetic and/or grammatical errors may exist.
--- NOTE | 2024-10-20 12:26 | CASEMGMT ---
RN CM into pt room, pt sitting up in chair with friend Pat at bedside. Pt is aware she will dc to TCU tomorrow. Asked pt if she would like a person contacted when this transition occurs, pt listed friend Pat. Green sheet on chart for this.
[2024-10-20 14:07] VITALS: BP 127/60; PULSE 72; RESP 16; TEMP 36.6; O2SAT 99
--- NOTE | 2024-10-20 16:40 | PN.HOSP_ITS ---
Subjective Subjective Initially this morning patient complaining of a lot of anxiety and irritability, patient calm down and improved into the afternoon, did receive her pain medication. Patient evaluated at bedside, resting comfortably in the chair, woke patient up. She reports that she is beginning to eat better and overall is feeling somewhat better. Patient aware of likely DC to SNF tomorrow and is in agreement Objective Data Objective Data Vital Signs: Vital Signs Temp Pulse Resp BP Pulse Ox O2 Del Method O2 Flow Rate 97.9 F 72 16 127/60 H 99 Room Air 2 10/20/24 14:10/20/24 14:10/20/24 14:10/20/24 14:10/20/24 14:10/20/24 14:10/16/24 22:13 Oxygen Flow Rate (L/min) 2 Oxygen Delivery Method Room Air Weight: 85 kg Body Mass Index (BMI) 31.1 Intake & Output: Intake and Output for Last 24 Hours 10/18/24 10/19/24 10/20/24 23:59 23:59 23:59 Intake Total 0 / 400 2200 / 2200 943.75 / 943.75 Output Total 500 / 500 1550 / 1550 Balance -500 / -100 2200 / 2200 -606.25 / -606.25 Lab / Micro Data 10/20/24 05:57 10/20/24 05:57 Labs: Laboratory Results - last 24 hr 10/20/24 05:57: WBC 7.0, RBC 2.42 L, Hgb 9.1 L, Hct 27.0 L, MCV 111.6 H, MCH 37.6 H, MCHC 33.7, RDW Std Deviation 64.2 H, RDW Coeff of Maury 15.5 H, Plt Count 210, MPV 10.8, Sodium 136, Potassium 3.8, Chloride 105, Carbon Dioxide 21.4, Anion Gap 10, BUN 15, Creatinine 0.86, Estim Creat Clear Calc 55.24, Est GFR (MDRD) Non-Af 68, BUN/Creatinine Ratio 17.8, Glucose 82, Calcium 8.3 Micro: Microbiology 10/11/24 14:20 Nasal Secretion Nasal Screen MRSA/MSSA - Final 07/31/24 14:25 Swab (Method) Nasal Screen MRSA/MSSA - Final Physical Exam Narrative General: Alert, no apparent distress HEENT: Atraumatic, normocephalic Eyes: extraocular movements grossly intact Neck: Supple Respiratory: normal respiratory effort Cardiovascular: no edema appreciated GI: nondistended Extremities: Moving all extremities aside from left lower extremity in boot Neuro: No overt focal neurological deficits Psych: Cooperative Assessment & Plan Assessment/Plan (1) Status post total left knee replacement: PLAN: Plan #Left knee osteoarthritis status post left total knee replacement on 10/16/2024/ankle fracture and removal of left tibial nail and interlocking screws, history of tibial fracture with intramedullary nail placement ? Pain management per primary ? PT/OT ? Slight drop in her hemoglobin to 9.4, will recheck this afternoon and again in the morning ? Continue with doxycycline ? Yesterday she was complaining of ankle pain so an x-ray and a CT scan were obtained which demonstrated an acute distal tibial fracture. She is in a walking boot and toe-touch weightbearing on the operative side ? Patient had removal of left tibial nail and 4 interlocking screws during procedure on 10/16 as well. Multiple small incision sites on middle part of anterior carpio noted. Did have some postoperative blood oozing noted so Steri- Strips were placed and bandages with Scott wrap were replaced. ? Dressings are in place -10/20: Management per primary, patient to go to TCU tomorrow # Essential HTN ? Blood pressure stable ? She can resume her home blood pressure medications ? Will monitor make adjustments as necessary -10/20: Blood pressure 127/60 at this time, can continue her home medications, this is an acceptable blood pressure in the acute setting # Anxiety -10/20: Patient reporting anxiety and was irritable and labile in the a.m., ultimately put in for hydroxyzine as needed for anxiety, want to avoid benzos especially given she is still receiving oxycodone but patient has not yet needed this. Patient was evaluated at bedside and overall resting comfortably and doing fairly well, no further acute management necessary at this time. Supportive care # Postoperative anemia -10/20: Patient did have a hemoglobin of 12.1 preoperatively and subsequently trended down to the mid nines but has been stable since then, this a.m. was 9.1 slightly down from yesterday however patient had received IV fluids due to somewhat poor p.o. intake suspect this is dilutional in combination with continued blood draws. No further workup at this time acutely necessary Chronic medical problems and/or problems not being actively addressed during today's encounter: # Myeloproliferative disorder ? Follows with oncology, last office visit on 10/11. ? Has positive JAK2 mutation with persistent thrombocytosis. ? Continue with home hydroxyurea. # Hypothyroidism ? Stable ? Continue home Synthroid. DVT: Twice daily aspirin per Ortho Charges/Coding Visit Charges Inpatient E&M: 00870 Subs Hosp L1
[2024-10-20 22:29] VITALS: BP 165/63; PULSE 55; RESP 16; TEMP 36.3; O2SAT 96
[2024-10-20] MEDS: 0.9% Saline Lock 10 ML Syringe IV (22:34)
[2024-10-20 22:40] VITALS: PULSE 55
[2024-10-21 05:25] VITALS: BP 157/87; PULSE 54; RESP 16; TEMP 36.4; O2SAT 98
[2024-10-21 05:26] VITALS: PULSE 54
[2024-10-21 06:25] LABS: Anion Gap 10 (5-15); BUN 25 mg/dL (4-19); BUN/Creat Ratio 23.7 RATIO (10-20); Calcium,Total 8.5 mg/dL (7.6-11.0); Carbon Dioxide 21.9 mmol/L (21.0-32.0); Chloride 103 mmol/L (98-108); Estimated Creatinine Clearance 45.68 ml/min (50-250); Glucose 86 mg/dL (70-99); Potassium 3.8 mmol/L (3.3-5.1)
[2024-10-21 07:07] LABS: Hematocrit 25.5 % (37-47); Hemoglobin 8.7 g/dL (12.0-15.0); Immature Granulocytes Count 0.030 X10^3/uL (0.0-0.0); Mean Corp Hgb Conc 34.1 g/dL (32-36); Mean Corpuscular Volume 110.9 fL (81-99); Mean Platelet Vol. 10.8 fl (6.2-12.0); NRBC Flagged by Analyzer 0 % (0-5); Platelet Count 224 K/mm3 (150-450); RBC Distribution Width CV 15.8 % (11.6-14.6); RBC Distribution Width SD 64.2 fl (35.1-43.9); Red Blood Count 2.30 M/mm3 (4.2-5.4); White Blood Count 5.4 K/mm3 (4.4-11.0)
[2024-10-21 08:03] VITALS: BP 136/69; PULSE 70; RESP 18; TEMP 36.7; O2SAT 96
[2024-10-21 08:07] VITALS: PULSE 70
[2024-10-21] MEDS: Ensure Surgery 237 ML LIQUID PO (08:15)
[2024-10-21] MEDS: Polyethylene Glycol 3350 17 GM PACKET PO (08:16)
[2024-10-21] MEDS: Cholecalciferol (VIT D3) 25 MCG TABLET (1,000 UNITS) PO (08:17)
--- NOTE | 2024-10-21 10:22 | PCM.PN.ORT ---
Subjective Subjective Patient is sitting comfortably in bed. Patient states that today she is feeling much better. Patient states that she is feeling much stronger on her feet and much stronger with walking with a walker. Patient states that she is much less anxious today. Patient states that her pain is controlled today. Patient states that her appetite is much better. Patient states she has not yet had a bowel movement but feels like she could. Patient states she will continue to drink her prune juice and boost. Patient states that she is doing well with physical therapy being toe-touch weightbearing on her operative leg with a walker. Patient denies any shortness of breath, chest pain, calf pain. Patient denies any fever, chills, signs of infection. Patient denies any new numbness or tingling. Patient denies any adverse events overnight. Objective Data Objective Data Vital Signs: Vital Signs Temp Pulse Resp BP Pulse Ox O2 Del Method O2 Flow Rate 98.0 F 70 18 136/69 H 96 Room Air 2 10/21/24 08:03 10/21/24 08:07 10/21/24 08:03 10/21/24 08:03 10/21/24 08:03 10/21/24 08:03 10/16/24 22:13 Oxygen Flow Rate (L/min) 2 Oxygen Delivery Method Room Air Weight: 85 kg Body Mass Index (BMI) 31.1 Intake & Output: Intake and Output for Last 24 Hours 10/19/24 10/20/24 10/21/24 23:59 23:59 23:59 Intake Total 2200 / 2200 1943.75 / 2143.75 400 / 400 Output Total 1550 / 1550 200 / 200 Balance 2200 / 2200 393.75 / 593.75 200 / 200 Lab / Micro Data 10/21/24 05:45 10/21/24 05:45 Labs: Laboratory Results - last 24 hr 10/21/24 05:45: WBC 5.4, RBC 2.30 L, Hgb 8.7 L, Hct 25.5 L, MCV 110.9 H, MCH 37.8 H, MCHC 34.1, RDW Std Deviation 64.2 H, RDW Coeff of Maury 15.8 H, Plt Count 224, MPV 10.8, Immature Gran % (Auto) 0.600, Neut % (Auto) 54.7, Lymph % (Auto) 27.2, [place] % (Auto) 15.2 H, Eos % (Auto) 1.9, Baso % (Auto) 0.4, Absolute Neuts (auto) 3.0, Absolute Lymphs (auto) 1.47, Nucleated RBC % 0, Sodium 135, Potassium 3.8, Chloride 103, Carbon Dioxide 21.9, Anion Gap 10, BUN 25 H, Creatinine 1.04, Estim Creat Clear Calc 45.68 L, Est GFR (MDRD) Non-Af 54 L, BUN/Creatinine Ratio 23.7 H, Glucose 86, Calcium 8.5 Micro: Microbiology 10/11/24 14:20 Nasal Secretion Nasal Screen MRSA/MSSA - Final 07/31/24 14:25 Swab (Method) Nasal Screen MRSA/MSSA - Final Physical Exam Narrative Vital signs stable. JUDE hose in place bilaterally. Walking boot in place on operative foot Stable distal one third drainage on Mepilex dressing. Stable distal pin site drainage. Scott wrap in place on operative leg. Dorsiflexion and plantarflexion are performed without pain or restriction. Sensation intact to light touch. Neurovascular intact overall. Patient states that her skin feels sore on her bilateral calves which is nothing new and she has had it for about 2 years. Negative Homans bilaterally. Const alert, oriented x3 and no apparent distress Assessment & Plan Assessment/Plan (1) Status post total left knee replacement: PLAN: Status post robotic assisted left total knee replacement, removal left tibial nail, removal for interlocking screws postop day 5. Patient also has acute distal tibial metadiaphyseal junction fracture left lower extremity 1. DVT prophylaxis: Patient will be taking aspirin 81 mg twice daily for 4 weeks postoperatively. Patient will be wearing JUDE hose for 2 weeks postoperatively. 2. Pain medications: Patient will be on Tylenol 1000 mg every 8 hours. Patient will be taking oxycodone as needed for postoperative pain medications. 3. Constipation: Patient has been placed on MiraLAX by medicine. Patient has also been drinking prune juice and is getting boost today. Patient states that her appetite is much better today. Patient states that is not unusual for her not to have a bowel movement when she is not eating. Patient states that her nausea and dizziness has gotten much better today. Patient still has Zofran to use as needed. 4. Left distal tibia fracture: CT images were reviewed with Dr. Machuca from October 17, 2024. CT did show an acute distal tibia fracture without involvement of articular surface. Patient is now using a walking boot and will be toe-touch weightbearing with walker for 6 weeks postoperatively. 5. Physical therapy: Patient will now be toe-touch weightbearing on operative side with a walker. She will be toe-touch weightbearing for 6 weeks postoperatively. 6. H&H: 8.7/25.5. Hemoglobin did drop from 9.1 yesterday. Patient is currently following anemia protocol and taking ferrous sulfate and folic acid daily. This was discussed with medicine who stated likely from continued blood draws and getting fluids yesterday. 7. Incentive spirometry: Patient was instructed to continue to use the incentive spirometer every hour that they are awake for the first week to exercise the lung and decrease risk of postoperative lung infection 8. Patient is to follow-up for postoperative instructions 9. Doxycycline: Patient will be on doxycycline for 2 weeks postoperatively due to nature of removal surgery. Patient was educated on the risk of sunburn while taking doxycycline. Patient was educated to take a probiotic while taking doxycycline. Patient voiced understanding. 10. Continue postoperative medical treatment per medicine: Case was discussed with medicine. 11. Hyponatremia: Looks to have resolved with sodium level now at 135. This was discussed with medicine. 12. Anxiety: Patient states that her anxiety has gotten much better. Patient never actually received hydroxyzine yesterday. Hydroxyzine was discontinued by medicine today. 11. Disposition: At this time I do feel patient is ready for discharge to nursing home facility. Patient states that she feels much more comfortable on her feet and feels that she is getting stronger. Patient's nausea and dizziness has resolved today. Patient states that her appetite is much better. Patient has not yet had a bowel movement. There is a bed available at the transitional care unit today. Patient will be okay for discharge if pain maintains controlled, continues to work with physical therapy, and is okay per medicine doctors instructions. Medicine does feel patient is medically stable at this point. We will plan to have patient get a CBC and BMP in 1 week at the transitional care unit to continue to monitor hemoglobin and hematocrit. Patient was educated that there would be an order to get CBC and BMP and to follow-up with primary care provider to continue to manage chronic anemia. Patient's discharge paperwork will be filled out today. Patient's narcotic pain medication will be sent with her to the TCU. Patient does have 2-week follow-up visit scheduled in office. Patient was encouraged to call with any questions, concerns, new problems. This dictation was created using voice recognition software. Phonetic and/or grammatical errors may exist.
--- NOTE | 2024-10-21 10:33 | PCM.TXEXTCAR ---
Diet Diet Order/Speech Therapy: INPATIENT Hospital Diet / Speech Therapy Order(s) 10/17/24 05:37 Diet: Regular - General Routine Orders/Code Status Routine Lab Work: CBC (Drawl CBC and BMP in 1 week to continue following postoperative anemia. Follow-up with primary care provider to manage chronic anemia) and BMP DC O2, CPAP, BIPAP needs Home O2 Discharge instructions: No Wound(s) LEFT KNEE: Wound Type: Surgical Incision (Left knee total knee replacement, removal left tibial nail, removal for interlocking screws. May remove dressing on 10/21/2024. If incision is clean, dry, intact can leave open to air. If drainage can do dry dressing changes. No soaking, submerging, lotions, salves, oils over incision for 6 weeks ) Therapies Weight Bearing: Toe-touch weight bearing (Patient is toe-touch weightbearing in pneumatic foam walking boot with walker due to acute distal tibial metadiaphyseal junction fracture left lower extremity.) Extremity Affected:: Left Lower Physical Therapy: Eval and Treat (Physical therapy daily. Patient is toe-touch weightbearing on operative leg and pneumatic foam walking boot with walker.) Occupational Therapy: Eval and Treat Speech Therapy: Eval and Treat Problem/Diagnosis (1) Status post total left knee replacement: Status: Acute Code(s): Z96.652 - Presence of left artificial knee joint Plan: Status post robotic assisted left total knee replacement, removal left tibial nail, removal for interlocking screws postop day 5. Patient also has acute distal tibial metadiaphyseal junction fracture left lower extremity 1. DVT prophylaxis: Patient will be taking aspirin 81 mg twice daily for 4 weeks postoperatively. Patient will be wearing JUDE hose for 2 weeks postoperatively. 2. Pain medications: Patient will be on Tylenol 1000 mg every 8 hours. Patient will be taking oxycodone as needed for postoperative pain medications. 3. Constipation: Patient has been placed on MiraLAX by medicine. Patient has also been drinking prune juice and is getting boost today. Patient states that her appetite is much better today. Patient states that is not unusual for her not to have a bowel movement when she is not eating. Patient states that her nausea and dizziness has gotten much better today. Patient still has Zofran to use as needed. 4. Left distal tibia fracture: CT images were reviewed with Dr. Machuca from October 17, 2024. CT did show an acute distal tibia fracture without involvement of articular surface. Patient is now using a walking boot and will be toe-touch weightbearing with walker for 6 weeks postoperatively. 5. Physical therapy: Patient will now be toe-touch weightbearing on operative side with a walker. She will be toe-touch weightbearing for 6 weeks postoperatively. 6. H&H: 8.7/25.5. Hemoglobin did drop from 9.1 yesterday. Patient is currently following anemia protocol and taking ferrous sulfate and folic acid daily. This was discussed with medicine who stated likely from continued blood draws and getting fluids yesterday. 7. Incentive spirometry: Patient was instructed to continue to use the incentive spirometer every hour that they are awake for the first week to exercise the lung and decrease risk of postoperative lung infection 8. Patient is to follow-up for postoperative instructions 9. Doxycycline: Patient will be on doxycycline for 2 weeks postoperatively due to nature of removal surgery. Patient was educated on the risk of sunburn while taking doxycycline. Patient was educated to take a probiotic while taking doxycycline. Patient voiced understanding. 10. Continue postoperative medical treatment per medicine: Case was discussed with medicine. 11. Hyponatremia: Looks to have resolved with sodium level now at 135. This was discussed with medicine. 12. Anxiety: Patient states that her anxiety has gotten much better. Patient never actually received hydroxyzine yesterday. Hydroxyzine was discontinued by medicine today. 11. Disposition: At this time I do feel patient is ready for discharge to [facility]. Patient states that she feels much more comfortable on her feet and feels that she is getting stronger. Patient's nausea and dizziness has resolved today. Patient states that her appetite is much better. Patient has not yet had a bowel movement. There is a bed available at the transitional care unit today. Patient will be okay for discharge if pain maintains controlled, continues to work with physical therapy, and is okay per medicine doctors instructions. Medicine does feel patient is medically stable at this point. We will plan to have patient get a CBC and BMP in 1 week at the transitional care unit to continue to monitor hemoglobin and hematocrit. Patient was educated that there would be an order to get CBC and BMP and to follow-up with primary care provider to continue to manage chronic anemia. Patient's discharge paperwork will be filled out today. Patient's narcotic pain medication will be sent with her to the TCU. Patient does have 2-week follow-up visit scheduled in office. Patient was encouraged to call with any questions, concerns, new problems. This dictation was created using voice recognition software. Phonetic and/or grammatical errors may exist. Allergies/Procedures Done in Hospital Allergies promethazine HCl (From Phenergan) Allergy (Severe, Verified 10/16/24 11:13) Other heightens engery (zing) Penicillins Adverse Reaction (Severe, Verified 10/16/24 11:13) Swelling red dye Adverse Reaction (Severe, Verified 10/16/24 11:13) Unknown mouth to droop Tetanus Vaccines and Toxoid Adverse Reaction (Intermediate, Verified 10/16/24 11:13) NEEDS FOLLOW-UP Type of Care/Length of Stay Estimated LOS: Convalescent Care Less Than 30 days Type of Care Needed: Skilled Rehab Potential: Good Prognosis: Good Additional Orders/Day of Discharge Day of Discharge: 10/21/24 Discharge Plan Admission Admit Date/Time: 10/18/24 13:14 Attending Provider: Geo Machuca Primary Care Provider: Dago Emery [employer] Providers: Sofia Carvajal; Juliane Villa Discharge Orders/Prescriptions Prescriptions: New acetaminophen 500 mg Tablet 1,000 mg PO Q8 Qty: 0 0RF aspirin 81 mg capsule 81 mg PO BIDCM Qty: 60 0RF Rx Instructions: Take for 4 weeks postoperatively. famotidine 20 mg Tablet 20 mg PO DAILY 30 Days Qty: 0 0RF doxycycline monohydrate 100 mg Capsule 100 mg PO Q12 9 Days Qty: 0 0RF ferrous sulfate [FeroSul] 325 mg (65 mg iron) Tablet 325 mg PO 1200,1700 20 Days Qty: 0 0RF folic acid 1 mg Tablet 1 mg PO BREAKFAST 20 Days Qty: 0 0RF ondansetron HCl (PF) 4 mg/2 mL Solution 4 mg IV Q6H PRN PRN (Reason: Nausea/Vomiting) 3 Days Qty: 0 0RF oxycodone 5 mg Tablet 5 - 10 mg PO Q4H PRN PRN (Reason: Pain Score 4-10) 7 Days Qty: 42 0RF Continued levothyroxine [Levoxyl] 50 MCG tablet 50 mcg PO DAILY Patient Comments: THYROID losartan 100 MG tablet 100 mg PO DAILY Patient Comments: take 1 tablet by mouth once daily amlodipine 5 MG tablet 5 mg PO DAILY cholecalciferol (vitamin D3) 1,000 UNIT tablet 1,000 unit PO DAILY atenolol 50 mg Tablet 50 mg PO DAILY@0800 30 Days Qty: 30 0RF hydroxyurea 500 mg capsule 1,000 mg PO [facility] Qty: 100 4RF Rx Instructions: does not take on wednesdays or sundays Discontinued aspirin 81 mg tablet,chewable 81 mg PO DAILY No Action acetaminophen 500 mg Tablet 1,000 mg PO BID PRN (Reason: inflammation) Rx Instructions: Do not take more than 3000 mg Tylenol in a 24-hour period. Other Ambulatory Orders: 12 Lead EKG (Routine) Location: None Selected Ordered By: Dr. Geo Machuca Basic Metabolic Profile (BMP) (Routine) Timeframe: 1 Week Facility: [facility] - Location: Laboratory Ordered By: Nela Wallace CBC W/Diff, Automated (Routine) Timeframe: 1 Week Facility: [facility] - Location: Laboratory Ordered By: Nela Wallace Referrals / Follow Up: Dago Emery Chi, MD [Primary Care Provider] - Disposition Disposition (needs filled in before D/C Order can be placed): Inpatient Rehab Unit/Facility
--- NOTE | 2024-10-21 11:00 | PCM.DC.SUM ---
Providers Date of Admission: 10/18/24 Primary Care Physician: Dr. Dago Emery MD Consultations 10/16/24 14:53 Consult: Hospitalist Routine Consulting Provider: [facility] Reason for Consult: post op med management EMERGENT Consult: No MD Notified: Yes Date Notified: 10/16/24 Time Notified: 19:46 Method of Notification: Text Reason For Visit: ERAS, ROBOTIC ASSISTED LEFT TOTAL KNEE ARTHROPLAST Diagnosis Discharge Diagnosis (1) Status post total left knee replacement: Status: Acute Code(s): Z96.652 - Presence of left artificial knee joint Plan: Status post robotic assisted left total knee replacement, removal left tibial nail, removal for interlocking screws postop day 5. Patient also has acute distal tibial metadiaphyseal junction fracture left lower extremity 1. DVT prophylaxis: Patient will be taking aspirin 81 mg twice daily for 4 weeks postoperatively. Patient will be wearing JUDE hose for 2 weeks postoperatively. 2. Pain medications: Patient will be on Tylenol 1000 mg every 8 hours. Patient will be taking oxycodone as needed for postoperative pain medications. 3. Constipation: Patient has been placed on MiraLAX by medicine. Patient has also been drinking prune juice and is getting boost today. Patient states that her appetite is much better today. Patient states that is not unusual for her not to have a bowel movement when she is not eating. Patient states that her nausea and dizziness has gotten much better today. Patient still has Zofran to use as needed. 4. Left distal tibia fracture: CT images were reviewed with Dr. Machuca from October 17, 2024. CT did show an acute distal tibia fracture without involvement of articular surface. Patient is now using a walking boot and will be toe-touch weightbearing with walker for 6 weeks postoperatively. 5. Physical therapy: Patient will now be toe-touch weightbearing on operative side with a walker. She will be toe-touch weightbearing for 6 weeks postoperatively. 6. H&H: 8.7/25.5. Hemoglobin did drop from 9.1 yesterday. Patient is currently following anemia protocol and taking ferrous sulfate and folic acid daily. This was discussed with medicine who stated likely from continued blood draws and getting fluids yesterday. 7. Incentive spirometry: Patient was instructed to continue to use the incentive spirometer every hour that they are awake for the first week to exercise the lung and decrease risk of postoperative lung infection 8. Patient is to follow-up for postoperative instructions 9. Doxycycline: Patient will be on doxycycline for 2 weeks postoperatively due to nature of removal surgery. Patient was educated on the risk of sunburn while taking doxycycline. Patient was educated to take a probiotic while taking doxycycline. Patient voiced understanding. 10. Continue postoperative medical treatment per medicine: Case was discussed with medicine. 11. Hyponatremia: Looks to have resolved with sodium level now at 135. This was discussed with medicine. 12. Anxiety: Patient states that her anxiety has gotten much better. Patient never actually received hydroxyzine yesterday. Hydroxyzine was discontinued by medicine today. 11. Disposition: At this time I do feel patient is ready for discharge to intermediate facility. Patient states that she feels much more comfortable on her feet and feels that she is getting stronger. Patient's nausea and dizziness has resolved today. Patient states that her appetite is much better. Patient has not yet had a bowel movement. There is a bed available at the transitional care unit today. Patient will be okay for discharge if pain maintains controlled, continues to work with physical therapy, and is okay per medicine doctors instructions. Medicine does feel patient is medically stable at this point. We will plan to have patient get a CBC and BMP in 1 week at the transitional care unit to continue to monitor hemoglobin and hematocrit. Patient was educated that there would be an order to get CBC and BMP and to follow-up with primary care provider to continue to manage chronic anemia. Patient's discharge paperwork will be filled out today. Patient's narcotic pain medication will be sent with her to the TCU. Patient does have 2-week follow-up visit scheduled in office. Patient was encouraged to call with any questions, concerns, new problems. This dictation was created using voice recognition software. Phonetic and/or grammatical errors may exist. Medications at Discharge Home Medications levothyroxine 50 mcg tablet (Levoxyl) 50 mcg PO DAILY thyroid 08/04/13 losartan 100 mg tablet 100 mg PO DAILY bp 06/06/18 amlodipine 5 mg tablet 5 mg PO DAILY bp 07/21/18 cholecalciferol (vitamin D3) 25 mcg (1,000 unit) tablet 1,000 unit PO DAILY bones 10/26/19 atenolol 50 mg tablet 50 mg PO DAILY@0800 30 days #30 tabs 10/09/22 hydroxyurea 500 mg capsule 1,000 mg (2 x 500 mg) PO MOTUTHFRSA #100 caps 10/02/24 acetaminophen 500 mg tablet 1,000 mg PO BID PRN inflammation 10/04/24 acetaminophen 500 mg tablet 1,000 mg (2 x 500 mg) PO Q8 #0 tabs 10/21/24 aspirin 81 mg capsule 81 mg PO BIDCM #60 caps 10/21/24 doxycycline monohydrate 100 mg capsule 100 mg PO Q12 9 days #0 caps 10/21/24 famotidine 20 mg tablet 20 mg PO DAILY 30 days #0 tabs 10/21/24 ferrous sulfate 325 mg (65 mg iron) tablet (FeroSul) 325 mg PO 1200,1700 20 days #0 tabs 10/21/24 folic acid 1 mg tablet 1 mg PO BREAKFAST 20 days #0 tabs 10/21/24 ondansetron HCl (PF) 4 mg/2 mL injection solution 4 mg (2 mL) IV Q6H PRN PRN Nausea/Vomiting 3 days #0 mL 10/21/24 oxycodone 5 mg tablet 5 - 10 mg (1 - 2 x 5 mg) PO Q4H PRN PRN Pain Score 4-10 7 days #42 tabs 10/21/24 Hospital Course Operations total knee replacement (Left total knee replacement, removal left tibial nail, removal interlocking screws) Summary of Care Provided Hospital Course: Patient is an 79-year-old female who presented for an elective left total knee replacement and removal of left tibial nail as well as interlocking screws. Patient will be on aspirin 81 mg twice daily for 4 weeks postoperatively. Patient will be on Tylenol and oxycodone as needed for pain control. Patient has been having trouble having a bowel movement. Patient was placed on MiraLAX by medicine. Patient has been drinking prune juice and boost to help with bowel movements. It was found on October 17, [address] scan that was reviewed with Dr. Machuca that patient had an acute distal tibia fracture without involvement of the articular surface. Patient was then placed in a pneumatic foam walking boot and will be toe-touch weightbearing with a walker for 6 weeks postoperatively. Patient has been working with physical therapy. Patient's hemoglobin has been low so patient was placed on our anemia protocol which is ferrous sulfate and folic acid daily. This was discussed with medicine who felt that patient was medically stable. Patient did have hyponatremia as well and was given fluids by medicine. Patient's hyponatremia has resolved. Patient's low hemoglobin is likely due to receiving fluids and continued blood draws. Patient was sent with a outpatient lab form to receive CBC and BMP in 1 week to ensure hemoglobin and hematocrit are improving. Patient was encouraged to follow-up with primary care provider to manage anemia. Due to nature of patient's surgery she is on doxycycline for 2 weeks postoperatively. Patient did have 1 episode of an anxiety attack in the hospital. Patient was able to be consoled after taking her oxycodone. Patient's pain has maintained controlled at this point. Patient was having some nausea and dizziness which patient states seems to have resolved today. Case is discussed with medicine who stated that patient is medically stable at this point. Patient does have a bed available at the TCU at this time. Patient has 2-week visit scheduled on our office. Patient will get leonid removed at that time. Patient was encouraged to call with any questions, concerns, new problems. Weight / BMI Weight Weight: 85 kg Body Mass Index (BMI) 31.1 ABG / Lab / Microbiology Data 10/21/24 05:45 10/21/24 05:45 Laboratory: Laboratory Results - last 24 hr 10/21/24 05:45: WBC 5.4, RBC 2.30 L, Hgb 8.7 L, Hct 25.5 L, MCV 110.9 H, MCH 37.8 H, MCHC 34.1, RDW Std Deviation 64.2 H, RDW Coeff of Maury 15.8 H, Plt Count 224, MPV 10.8, Immature Gran % (Auto) 0.600, Neut % (Auto) 54.7, Lymph % (Auto) 27.2, Cole % (Auto) 15.2 H, Eos % (Auto) 1.9, Baso % (Auto) 0.4, Absolute Neuts (auto) 3.0, Absolute Lymphs (auto) 1.47, Nucleated RBC % 0, Sodium 135, Potassium 3.8, Chloride 103, Carbon Dioxide 21.9, Anion Gap 10, BUN 25 H, Creatinine 1.04, Estim Creat Clear Calc 45.68 L, Est GFR (MDRD) Non-Af 54 L, BUN/Creatinine Ratio 23.7 H, Glucose 86, Calcium 8.5 Microbiology: Microbiology 10/11/24 14:20 Nasal Secretion Nasal Screen MRSA/MSSA - Final 07/31/24 14:25 Swab (Method) Nasal Screen MRSA/MSSA - Final D/C Instructions DC O2, CPAP, BIPAP Needs Home O2 Discharge instructions: No Meaningful Use Info Meaningful Use Meaningful Use Diagnoses (Choose all that apply): None applicable Discharge Plan Admission Admit Date/Time: 10/18/24 13:14 Attending Provider: Geo Machuca Primary Care Provider: Dago Emery Chi Consulting Providers: Sofia Carvajal; Juliane Villa Discharge Orders/Prescriptions Prescriptions: New acetaminophen 500 mg Tablet 1,000 mg PO Q8 Qty: 0 0RF aspirin 81 mg capsule 81 mg PO BIDCM Qty: 60 0RF Rx Instructions: Take for 4 weeks postoperatively. famotidine 20 mg Tablet 20 mg PO DAILY 30 Days Qty: 0 0RF doxycycline monohydrate 100 mg Capsule 100 mg PO Q12 9 Days Qty: 0 0RF ferrous sulfate [FeroSul] 325 mg (65 mg iron) Tablet 325 mg PO 1200,1700 20 Days Qty: 0 0RF folic acid 1 mg Tablet 1 mg PO BREAKFAST 20 Days Qty: 0 0RF ondansetron HCl (PF) 4 mg/2 mL Solution 4 mg IV Q6H PRN PRN (Reason: Nausea/Vomiting) 3 Days Qty: 0 0RF oxycodone 5 mg Tablet 5 - 10 mg PO Q4H PRN PRN (Reason: Pain Score 4-10) 7 Days Qty: 42 0RF Continued levothyroxine [Levoxyl] 50 MCG tablet 50 mcg PO DAILY Patient Comments: THYROID losartan 100 MG tablet 100 mg PO DAILY Patient Comments: take 1 tablet by mouth once daily amlodipine 5 MG tablet 5 mg PO DAILY cholecalciferol (vitamin D3) 1,000 UNIT tablet 1,000 unit PO DAILY atenolol 50 mg Tablet 50 mg PO DAILY@0800 30 Days Qty: 30 0RF hydroxyurea 500 mg capsule 1,000 mg PO MOTUTHFRSA Qty: 100 4RF Rx Instructions: does not take on wednesdays or sundays Discontinued aspirin 81 mg tablet,chewable 81 mg PO DAILY No Action acetaminophen 500 mg Tablet 1,000 mg PO BID PRN (Reason: inflammation) Rx Instructions: Do not take more than 3000 mg Tylenol in a 24-hour period. Other Ambulatory Orders: 12 Lead EKG (Routine) Location: None Selected Ordered By: Dr. Geo Machuca Basic Metabolic Profile (BMP) (Routine) Timeframe: 1 Week Facility: [facility] - Location: Laboratory Ordered By: Nela Wallace CBC W/Diff, Automated (Routine) Timeframe: 1 Week Facility: [facility] - Location: Laboratory Ordered By: Nela Wallace Referrals / Follow Up: Dago Emery Chi, MD [Primary Care Provider] - Disposition Disposition (needs filled in before D/C Order can be placed): Inpatient Rehab Unit/Facility
--- NOTE | 2024-10-21 12:57 | NURSING ---
Report called to Rajwinder COLE
[2024-10-21 13:13] VITALS: BP 129/67; PULSE 62; RESP 18; TEMP 36.8; O2SAT 95
== END 2024-10-21 13:21 | DRG 470 ==
LOC: SDC 16:37 → MS3 10-17 08:16
PROVIDERS: Anesthesiology; Family Medicine; Physician Assistant Surgical; Admitting Provider Specialist; PCP Family Medicine Geriatric Medicine; Referring Provider Specialist; Visit Provider Specialist
PROC: 0SRD0JZ Replacement of Left Knee Joint with Synthetic Substitute, Open Approach (ICD-10-PCS; CPT 27447; principal; 2024-10-16 12:00)
DX: M17.32 Unilateral post-traumatic osteoarthritis, left knee (principal); C94.6 Myelodysplastic disease, not elsewhere classified; E87.1 Hypo-osmolality and hyponatremia; E03.9 Hypothyroidism, unspecified; I10 Essential (primary) hypertension; F32.A Depression, unspecified; D64.9 Anemia, unspecified; E66.9 Obesity, unspecified; S82.302A Unspecified fracture of lower end of left tibia, initial encounter for closed fracture; E78.5 Hyperlipidemia, unspecified; K59.00 Constipation, unspecified; E55.9 Vitamin D deficiency, unspecified; Z79.1 Long term (current) use of non-steroidal anti-inflammatories (NSAID); Z79.890 Hormone replacement therapy; Z79.899 Other long term (current) drug therapy; Z87.442 Personal history of urinary calculi; Z68.33 Body mass index [BMI] 33.0-33.9, adult; Z96.652 Presence of left artificial knee joint; X58.XXXA Exposure to other specified factors, initial encounter
CPT/HCPCS: 36415; 73560; 73610; 73700; 76000; 80048; 80053; 82040; 82306; 82962; 83735; 84443; 85014; 85018; 85025; 85027; 85610; 85730; 87081; 94668; 97110; 97116; 97162; 97165; 97530; 97535; C1776; A4216; J2405; J3475

== ENCOUNTER 2024-10-21 14:09 | Inpatient (IN) | payer MEDICARE, OTHER, SELFPAY ==
--- OUTSIDE RECORDS SUMMARY | 2024-10-21 13:35 | XMS RPT_ITS | CCD ---
Author Organization [facility] Care Team Providers Care Transfer Coordinator Name Role Phone Dr. Dago Emrey Chi Primary Care Provider Rupert, Dr. Dago Nicole Referring Provider Dr. Umang Pate Attending Provider Rupert, Dr. Dago Nicole Primary Care Provider Rupert, Dr. Dago Nicole Referring Provider [phone] Peg CLOTH TRIMMER HAND, CLOTH TRIMMER HAND-C Carolyn Attending Provider Rupert, Dr. Dago Nicole Primary Care Provider Rupert, Dr. Dago Nicole Referring Provider Dr. Umang Pate Attending Provider Rupert COON, Dr. Dago Nicole Primary Care Provider Dr. Dago Emery MD, Chi Referring Provider Peg CLOTH TRIMMER HAND-C, Carolyn Attending Provider Dr. Umang Pate MD Attending Provider Rupert COON, Dr. Dago Nicole Attending Provider Dr. Omero Armas MD Attending Provider Dr. Umang Pate MD Attending Provider Rupert, Dago Chi Primary Care Unavailable SvenGeo ramos Referring Unavailable SvenGeo ramos Attending Unavailable Rupert, Dago Chi Attending Unavailable Rupert, Dago Chi Primary Care Unavailable Rupert, Dago Chi Referring Unavailable Rupert, Dago Chi Attending Unavailable Rupert, Dago Chi Primary Care Unavailable Rupert, Dago Chi Referring Unavailable Rupert, Dago Chi Attending Unavailable Rupert, Dago Chi Primary Care Unavailable Saulo Bullock Consulting Unavailable KoluisonieSe judd Attending Unavailable Rupert, Dago Chi Primary Care Unavailable Geo Rodriguez Admitting Unavailable Sven, Geo Referring Unavailable KotsoniSee judd F Consulting Unavailable Sven, Geo Consulting Unavailable Rupert, Dago Chi Referring Unavailable Peg CLOTH TRIMMER HAND, Carolyn Attending Unavailable Rupert, Dago Chi Primary Care Unavailable Omero Armas Attending Unavailable Rupert, Dago Chi Referring Unavailable Rupert, Dago Chi Primary Care Unavailable Peg CLOTH TRIMMER HAND, Carolyn Attending Unavailable Rupert, Dago Chi Referring Unavailable Rupert, Dago Chi Primary Care Unavailable Rupert, Dago Chi Primary Care Unavailable Isckarus, Mansour Attending Unavailable Rupert, Dago Chi Referring Unavailable Rupert, Dago Chi Referring Unavailable Rupert, Dago Chi Primary Care Unavailable Isckarus, Mansour Attending Unavailable Rupert, Dago Chi Referring Unavailable Omero Armas Attending Unavailable Rupert, Dago Chi Primary Care Unavailable Saulo Bullock Attending Unavailable Rupert, Dago Chi Primary Care Unavailable Isckarus, Mansour Attending Unavailable Rupert, Dago Chi Referring Unavailable Saulo Bullock Consulting Unavailable Rupert, Dago Chi Primary Care Unavailable Geo Rodriguez Admitting Unavailable Sven, Geo Referring Unavailable Sven, Geo Attending Unavailable See Valente F Consulting Unavailable Sven COON, Dr. Guardado Admit Provider Dr. Geo Rodriguez MD Referring Provider [phone] Geo Rodriguez MD Other Provider Dr. Saulo Bullock DO Attending Provider Dr. Saulo Bullock DO Other Provider Ambrosio COON, Dr. See Pulido Other Provider Ambrosio COON, Dr. See Pulido Attending Provider Dr. Geo Rodriguez MD Attending Provider [phone] Sofia Carvajal MD Other Provider Allen COON, Dr. Juliane Murguia Other Provider [phone] Wei COON, Dr. Black Attending Provider Allergies Allergy Classification Reported Allergen(s) Allergy Type Date of Onset Reaction(s) Facility (11 sources) Contrast media; Translations: [red dye] Propensity to adverse reactions 2 Unknown [facility] Comment on above: mouth to droop (10 sources) Penicillins Propensity to adverse reactions 2 Swelling [facility] (11 sources) Promethazine; Translations: [promethazine HCl] Drug Allergy 2 Other [facility] Comment on above: heightens engery (zi ng) (10 sources) Tetanus Vaccines and Toxoid Propensity to adverse reactions 2 NEEDS FOLLOW-UP [facility] (1 source) Penicillins Drug allergy (disorder) 5 [facility] Repository (1 source) Tetanus Vaccines and Toxoid Drug allergy (disorder) 5 [facility] Repository Medications Current Medications Medication Drug Class(es) Dates Sig (Normalized) Sig (Original) acetaminophen 500 mg oral tablet (9 sources) Start: 10-21-2024 take 2 tablets by mouth every eight hours Acetaminophen 500 mg Tablet Active 1000 mg PO EVERY 8 HOURS 0 0 October 21, 2024 12:00am Start: 10-04-2024 Acetaminophen 500 mg Tablet Active [...] 24-hour period. amLODIPine 5 mg oral tablet (20 sources) Dihydropyridine Calcium Channel Elizabeth Start: 07-21-2018 take 1 tablet by mouth once daily Amlodipine 5 MG tablet Active 5 mg PO DAILY July 21, 2018 12:00am bp Start: 04-19-2014 End: 05-07-2014 take 1 tablet by mouth once daily Amlodipine 5 MG tablet Discontinued 5 mg PO DAILY 1 0 April 19, 2014 1:00am May 07, 2014 12:05pm aspirin 81 mg oral tablet (20 sources) Platelet Aggregation Inhibitor, Nonsteroidal Anti-inflammatory Drug Start: 10-21-2024 take 1 capsule by mouth twice daily at mealtime Aspirin 81 mg capsule Active 81 mg PO TWICE DAILY WITH MEALS 60 0 October 21, 2024 12:00am Take for 4 weeks postoperatively. Start: 09-20-2024 End: 10-21-2024 take 1 tablet by mouth once daily Aspirin 81 mg tablet,chewable Discontinued 81 mg PO DAILY September 20, 2024 2:31pm October 21, 2024 10:52am Start: 09-25-2022 End: 09-20-2024 take 1 tablet by mouth twice daily Aspirin 81 mg Tablet,Chewable Discontinued 81 mg PO BID@0800,1999 14 7 0 October 09, 2022 12:00am [...] 2021 1:59pm atenolol 50 mg oral tablet (16 sources) beta-Adrenergic Elizabeth Start: 10-09-2022 take 1 [...] 2014 1:00am cholecalciferol 0.025 mg oral tablet (10 sources) Vitamin D Start: 10-26-2019 take 1 tablet by mouth once daily Cholecalciferol (Vitamin D3) 1,000 UNIT tablet Active 1000 U PO DAILY October 26, 2019 12:00am bones doxycycline monohydrate 100 mg oral capsule (7 sources) Tetracycline- class Drug Start: 10-21-2024 take 1 capsule by mouth every twelve hours Doxycycline Monohydrate 100 mg Capsule Active 100 mg PO EVERY 12 HOURS 0 9 0 October 21, 2024 12:00am Start: 09-25-2022 End: 10-09-2022 take 1 capsule by mouth twice daily Doxycycline Monohydrate 100 mg Capsule Discontinued 100 mg PO TWICE A DAY 28 14 0 September 25, 2022 12:00am October 09, 2022 3:33pm Antibiotic Take doxycycline for 2 weeks postoperatively famotidine 20 mg oral tablet (7 sources) Histamine-2 Receptor Antagonist Start: 10-21-2024 take 1 tablet by mouth once daily Famotidine 20 mg Tablet Active 20 mg PO DAILY 0 30 0 October 21, 2024 12:00am Start: 09-25-2022 End: 07-31-2024 take 1 tablet by mouth once daily Famotidine 20 mg Tablet Discontinued 20 mg PO DAILY 0 0 September 25, 2022 12:00am July 31, 2024 11:32am reflux Take for 4 weeks postoperatively while on aspirin and meloxicam ferrous sulfate 325 mg oral tablet (1 source) Start: 10-21-2024 Ferrous Sulfate (Ferosul) 325 mg (65 mg iron) Tablet Active 325 mg PO 1200,1700 0 20 0 October 21, 2024 12:00am folic acid 1 mg oral tablet (1 source) Start: 10-21-2024 take 1 tablet by mouth at breakfast Folic Acid 1 mg Tablet Active 1 mg PO WITH BREAKFAST 0 20 0 October 21, 2024 12:00am levothyroxine sodium 0.05 mg oral tablet (10 sources) l-Thyroxine Start: 08-04-2013 take 1 tablet by mouth once daily Levothyroxine (Levoxyl) 50 MCG tablet Active 50 ug PO DAILY August 04, 2013 12:00am thyroid losartan potassium 100 mg oral tablet (20 sources) Angiotensin 2 Receptor Elizabeth Start: 06-06-2018 take 1 tablet by mouth once daily Losartan 100 MG tablet Active 100 mg PO DAILY June 06, 2018 12:00am bp Start: 08-04-2013 End: 04-19-2014 take 1 tablet by mouth once daily Losartan 100 MG tablet Discontinued 100 mg PO DAILY August 04, 2013 12:00am April 19, 2014 3:45pm 2 ml ondansetron 2 mg/ml injection (7 sources) Serotonin-3 Receptor Antagonist Start: 10-21-2024 take 4 mg intravenously every six hours as needed for nausea Ondansetron Hcl (Pf) 4 mg/2 mL Solution Active 4 mg IV EVERY 6 HOURS NEEDED as needed for Nausea/Vomiting 0 3 0 October 21, 2024 12:00am Start: 10-09-2022 End: 07-31-2024 take 2 tablets [...] 11:00pm oxyCODONE hydrochloride 5 mg oral tablet (13 sources) Opioid Agonist Start: 10-21-2024 take 5-10 mg by mouth every four hours as needed for pain Oxycodone 5 mg Tablet Active 5 - 10 mg PO EVERY 4 HOURS NEEDED as needed for Pain Score 4-10 42 7 0 October 21, 2024 Status post total left knee replacement Presence of left artificial knee joint Start: 09-25-2022 End: 05-05-2023 take 1 tablet by mouth every four hours as needed for pain Oxycodone 5 mg Tablet Discontinued 5 mg PO EVERY 4 HOURS NEEDED as needed for Pain Score 6-10 42 7 0 October 09, 2022 May 05, 2023 2:50pm Fracture of left hip requiring operative repair polyethylene glycol 3350 14127 mg powder for oral solution (1 source) Osmotic Laxative Start: 10-21-2024 Polyethylene Glycol 3350 (Miralax) 17 gram/dose powder Active 17 g PO TWICE A DAY 119 0 October 21, 2024 12:00am Completed/Discontinued Medications Medication Drug Class(es) Dates Sig (Normalized) Sig (Original) acetaminophen 325 mg / HYDROcodone bitartrate 5 mg oral tablet (10 sources) Opioid Agonist Start: 04-19-2014 End: 05-07-2014 [...] 2014 11:05am ALPRAZolam 0.5 mg oral tablet (10 sources) Benzodiazepine Start: 02-14-2014 End: 05-07-2014 take 1 tablet by mouth three times daily as needed for anxiety Alprazolam 0.5 MG tablet Discontinued 0.5 mg PO THREE TIMES A DAY as needed for Anxiety 30 0 February 14, 2014 1:42pm May 07, 2014 12:05pm baclofen 10 mg oral tablet (5 sources) gamma-Aminobutyric Acid-ergic Agonist Start: 05-05-2023 End: 07-10-2024 take 1 tablet by mouth at bedtime Baclofen 10 mg tablet Discontinued 10 mg PO AT BEDTIME May 05, 2023 1:00am July 10, 2024 1:44pm docusate sodium 50 mg / sennosides, fdc 8.6 mg oral tablet (12 sources) Start: 09-25-2022 End: 07-31-2024 Sennosides-Docusate Sodium (Stool Softener-Stimulant Laxat) 8.6-50 mg Tablet Discontinued 2 {tbl} PO BID@0800,2000 120 30 0 October 09, 2022 12:00am July 31, 2024 11:34am hydroxyurea 500 mg oral capsule (20 sources) [...] & SUN. meloxicam 7.5 mg oral tablet (6 sources) Nonsteroidal Anti-inflammatory Drug Start: 09-25-2022 End: 07-10-2024 take 1 tablet by mouth twice daily Meloxicam 7.5 mg Tablet Discontinued 7.5 mg PO TWICE A DAY 0 30 0 September 25, 2022 12:00am July 10, 2024 1:44pm inflammation Do not take any other nonsteroidal anti-inflammatories while using meloxicam/Mobic. rivaroxaban 10 mg oral tablet (10 sources) Factor Xa Inhibitor Start: 04-19-2014 End: 05-07-2014 take 1 tablet by mouth once daily Rivaroxaban (Xarelto) 10 MG tablet Discontinued 10 mg PO DAILY@0600 1 0 April 19, 2014 1:00am May 07, 2014 12:04pm Problems Problem Classification Problem Date Documented Date Episodic/Chronic Administrative/socia l admission (20 sources) Education and/or schooling finding; Translations: [Problems related to education and literacy, unspecified] Episodic Anxiety disorders (10 sources) Anxiety; Translations: [Anxiety disorder, unspecified] 09-01-2018 Chronic Deficiency and other anemia (1 source) Anemia; Translations: [Anemia, unspecified] 10-21-2024 Episodic Diabetes mellitus with complications (1 source) Type 2 diabetes mellitus with hyperglycemia; Translations: [Type 2 diabetes mellitus with hyperglycemia] Onset: 5 Chronic Diseases of white blood cells (20 sources) Leukocytosis; Translations: [Elevated white blood cell count, unspecified] Chronic Disorders of lipid metabolism (13 sources) Hyperlipidemia; Translations: [Hyperlipidemia, unspecified] 09-01-2018 Chronic E Codes: Fall (10 sources) Fall; Translations: [Unspecified fall, initial encounter] 09-01-2018 Episodic Essential hypertension (14 sources) Hypertensive disorder; Translations: [Essential (primary) hypertension] Onset: 4 09-01-2018 Chronic Fracture of neck of femur (hip) (10 sources) Fracture of bone of hip region; Translations: [Fracture of unspecified part of neck of left femur, initial encounter for closed fracture] 09-01-2018 Episodic Malaise and fatigue (7 sources) Asthenia; Translations: [Other malaise] 10-22-2022 Episodic Neoplasms of unspecified nature or uncertain behavior (20 sources) Essential thrombocythemia; Translations: [Essential (hemorrhagic) thrombocythemia] Onset: 5 Chronic Comment on above: Britton 2+ Neoplasms of unspecified nature or uncertain behavior (20 sources) Myeloproliferative disorder; Translations: [Chronic myeloproliferative disease] Onset: 5 Episodic Nutritional deficiencies (7 sources) Vitamin D deficiency; Translations: [Vitamin D deficiency, unspecified] Onset: 5 10-22-2022 Chronic Comment on above: ON SUPPLEMENT Osteoarthritis (1 source) Unilateral primary osteoarthritis, left knee; Translations: [Unilateral primary osteoarthritis, left knee] Onset: 5 Chronic Other connective tissue disease (8 sources) History of total knee arthroplasty; Translations: [Presence of right artificial knee joint] 10-22-2022 Chronic Other connective tissue disease (1 source) Presence of right artificial knee joint; Translations: [Knee joint replacement] 10-14-2022 Chronic Other connective tissue disease (1 source) Presence of left artificial knee joint; Translations: [Presence of left artificial knee joint] Onset: 5 Chronic Other hematologic conditions (15 sources) Erythrocytosis; Translations: [Secondary polycythemia] 09-01-2018 Episodic Other hematologic conditions (5 sources) Secondary polycythemia; Translations: [Polycythemia, secondary] Episodic Other nutritional; endocrine; and metabolic disorders (6 sources) Body mass index 30+ - obesity; Translations: [Body mass index (BMI) 33.0-33.9, adult] 10-22-2022 Chronic Other nutritional; endocrine; and metabolic disorders (1 source) Body mass index (BMI) 33.0-33.9, adult; Translations: [Body Mass Index 33.0-33.9, adult] 10-14-2022 Chronic Other screening for suspected conditions (not mental disorders or infectious disease) (4 sources) Electrocardiogram abnormal; Translations: [Abnormal electrocardiogram [ECG] [EKG]] 09-20-2024 Episodic Thyroid disorders (11 sources) Hypothyroidism; Translations: [Hypothyroidism, unspecified] 09-01-2018 Chronic Results Test Name Value Interpretation Reference Range Facility Absolute lymphocyte countOrd ered By: eNla Casanova on 10-21-2024 Lymphocytes Auto (Unsp spec) [#/Vol] 1.47 10*3/uL 0.83-4.51 [facility] Absolute neutrophil countOrd ered By: Nela Casanova on 10-21-2024 Neutrophils (Bld) [#/Vol] 3.0 10*3/uL 2.0-7.7 [facility] Anion gap in Serum or Plasma Ordered By: Nela Casanova on 10-21-2024 Anion gap [Moles/Vol] 10 mmol/L 5-15 [facility] Automated lymphocyte count a s percentage of total leukocytesOrdered By: Nela Casanova on 10-21-2024 Lymphocytes/100 WBC Auto (Unsp spec) 27.2 % 19-41 [facility] BUN/creatinine ratioOrdered By: Nela Casanova on 10-21-2024 Urea nitrogen/Creatinine [Mass ratio] 23.7 mg/mg High 10-20 [facility] Basophil percentageOrdered B y: Nela Casanova on 10-21-2024 Basophils/100 WBC (Bld) 0.4 % 0-1 [facility] Carbon dioxide, total [Moles /volume] in Central venous bloodOrdered By: Nela Casanova on 10-21-2024 CO2 [Moles/Vol] 21.9 mmol/L 21.0-32.0 [facility] Chloride assayOrdered By: Bharathi Casanova on 10-21-2024 Chloride [Moles/Vol] 103 mmol/L 98-108 [facility] Eosinophil percentageOrdered By: Nela Casanova on 10-21-2024 Eosinophils/100 WBC (Bld) 1.9 % 0-5 [facility] Erythrocyte distribution wid th ratioOrdered By: Nela Casanova on 10-21-2024 Erythrocyte distribution width (RBC) [Ratio] 15.8 % High 11.6-14.6 [facility] Erythrocyte distribution wid th standard deviationOrdered By: Nela Casanova on 10-21-2024 Erythrocyte distribution width (RBC) [Ratio] 64.2 fl High 35.1-43.9 [facility] Glomerular filtration rate ( GFR) estimation/1.73 sq m using serum, plasma, or whole bOrdered By: Nela Casanova on 10-21-2024 GFR/1.73 sq M.predicted among non-blacks MDRD (S/P/Bld) [Vol rate/Area] 54 mL/min/{1.73_m2} Low >60 [facility] Comment on above: mL/min/1.73m2 CKD-EP I Creatinine Equation (2020) Hematocrit Auto (Bld) [Volum e fraction]Ordered By: Nela Casanova on 10-21-2024 Hematocrit (Bld) [Volume fraction] 25.5 % Low 37-47 [facility] Hemoglobin measurementOrdere d By: Nela Casanova on 10-21-2024 Hemoglobin (Bld) [Mass/Vol] 8.7 g/dL Low 12.0-15.0 [facility] Immature granulocytes/100 WB C Auto (Bld)Ordered By: Nela Casanova on 10-21-2024 Immature granulocytes/100 WBC (Bld) 0.600 % 0.0-0.9 [facility] Comment on above: IG% - Immature Granu locytes (promyelocytes, myelocytes and metamyelocytes) > 1% indicates that a LEFT SHIFT is Present. MCV (mean corpuscular volume ) determinationOrdered By: Nela Casanova on 10-21-2024 MCV (RBC) [Entitic vol] 110.9 fL High 81-99 [facility] Mean corpuscular hemoglobin (MCH) determinationOrdered By: Nela Casanova on 10-21-2024 MCH (RBC) [Entitic mass] 37.8 pg High 27.0-32.0 [facility] Mean corpuscular hemoglobin concentration (MCHC) determinationOrdered By: Nelamercy Casanova on 10-21-2024 MCHC (RBC) [Mass/Vol] 34.1 g/dL 32-36 [facility] Mean platelet volume determi nationOrdered By: Nela Casanova on 10-21-2024 Platelet mean volume (Bld) [Entitic vol] 10.8 fL 6.2-12.0 [facility] Monocyte percentageOrdered B y: Nela Casanova on 10-21-2024 Monocytes/100 WBC (Bld) 15.2 % High 0-10 [facility] Neutrophil percentageOrdered By: Nela Casanova on 10-21-2024 Neutrophils/100 WBC (Bld) 54.7 % 47-70 [facility] Nucleated red blood cell per centageOrdered By: Nela Casanova on 10-21-2024 Nucleated RBC/100 WBC (Bld) [Ratio] 0 % 0-5 [facility] Platelet countOrdered By: Bharathi Casanova on 10-21-2024 Platelets (Bld) [#/Vol] 224 10*3/uL 150-450 [facility] Potassium measurement (mass/ volume)Ordered By: Nela Casanova on 10-21-2024 Potassium (Unsp spec) [Mass/Vol] 3.8 mmol/L 3.3-5.1 [facility] RBC Auto (Bld) [#/Vol]Ordere d By: Nela Casanova on 08-02-2025 RBC (Bld) [#/Vol] 2.30 10*6/uL Low 4.2-5.4 [facility] Serum creatinine measurement (mass/volume)Ordered By: Nela Casanova on 10-21-2024 Creatinine [Mass/Vol] 1.04 mg/dL 0.70-1.20 [facility] Serum glucose measurement (m ass/volume)Ordered By: Nela Casanova on 10-21-2024 Glucose [Mass/Vol] 86 mg/dL 70-99 [facility] Serum or plasma calcium niels urement (mass/volume)Ordered By: Nela Casanova on 10-21-2024 Calcium [Mass/Vol] 8.5 mg/dL 7.6-11.0 [facility] Serum or plasma urea nitroge n measurement (mass/volume)Ordered By: Nela Casanova on 10-21-2024 Urea nitrogen [Mass/Vol] 25 mg/dL High 4-19 [facility] Sodium levelOrdered By: Tracie Casanova on 10-21-2024 Sodium [Moles/Vol] 135 mmol/L 133-145 [facility] White blood cell (WBC) count Ordered By: Nela Casanova on 10-21-2024 WBC (Bld) [#/Vol] 5.4 10*3/uL 4.4-11.0 [facility] Basic Metabolic Profile (BMP )on 10-19-2024 BUN/CRE 16.2 RATIO Normal 10-20 [facility] Comment on above: Performed By: #### L 500.2500, L100.0100 #### [facility] Laboratory [address] [place], [address] Calcium [Mass/Vol] 8.9 mg/dL Normal 7.6-11.0 [facility] Comment on above: Performed By: #### L 500.2500, L100.0100 #### [facility] [address] [place], [address] Chloride [Moles/Vol] 98 mmol/L Normal 98-108 [facility] Comment on above: Performed By: #### L 500.2500, L100.0100 #### [facility] [address] [place], [address] CO2 [Moles/Vol] 21.9 mmol/L Normal 21.0-32.0 [facility] Comment on above: Performed By: #### L 500.2500, L100.0100 #### [facility] [address] [place], [address] Creatinine [Mass/Vol] 1.02 mg/dL Normal 0.70-1.20 [facility] Comment on above: Performed By: #### L 500.2500, L100.0100 #### [facility] [address] [place], [address] ECRCL 46.57 ml/min Low 50-250 [facility] Comment on above: Performed By: #### L 500.2500, L100.0100 #### [facility] [address] [place], [address] GAP 11 Normal 5-15 [facility] Comment on above: Performed By: #### L 500.2500, L100.0100 #### [facility] [address] [place], [address] GFR/1.73 sq M.predicted among non-blacks MDRD (S/P/Bld) [Vol rate/Area] 55 mL/min/{1.73_m2} Low >60 [facility] Comment on above: Result Comment: mL/m in/1.73m2 CKD-EPI Creatinine Equation (2020) Performed By: #### L 500.2500, L100.0100 #### [facility] [address] [place], [address] Glucose [Mass/Vol] 94 mg/dL Normal 70-99 [facility] Comment on above: Performed By: #### L 500.2500, L100.0100 #### [facility] [address] [place], [address] Potassium [Moles/Vol] 4.1 mmol/L Normal 3.3-5.1 [facility] Comment on above: Performed By: #### L 500.2500, L100.0100 #### [facility] [address] [place], [address] Sodium [Moles/Vol] 131 mmol/L Low 133-145 [facility] Comment on above: Performed By: #### L 500.2500, L100.0100 #### [facility] [address] [place], [address] Urea nitrogen [Mass/Vol] 17 mg/dL Normal 4-19 [facility] Comment on above: Performed By: #### L 500.2500, L100.0100 #### [facility] [address] [place], [address] Bedside Glucoseon 10-19-2024 FINGERSTICK GLU 120 mg/dL High 74-106 [facility] Comment on above: Result Comment: TRACEY SALDAÑA OF PATIENT CARE PER NURSING PROTOCOL Performed By: #### L 100.0100, L500.4050 #### [facility] [address] [place], [address] CBC W/Diff, Automatedon 07-3 Absolute Lymph 1.13 X10 3/uL Normal 0.83-4.51 [facility] Comment on above: Performed By: #### L 100.0100, L500.4050 #### [facility] [address] [place], [address] Absolute Neut 5.2 X10 3/uL Normal 2.0-7.7 [facility] Comment on above: Performed By: #### L 100.0100, L500.4050 #### [facility] [address] [place], [address] Basophils/100 WBC (Bld) 0.3 % Normal 0-1 [facility] Comment on above: Performed By: #### L 100.0100, L500.4050 #### [facility] [address] [place], [address] Eosinophils/100 WBC (Bld) 0.9 % Normal 0-5 [facility] Comment on above: Performed By: #### L 100.0100, L500.4050 #### [facility] [address] [place], [address] Erythrocyte distribution width (RBC) [Ratio] 15.5 % High 11.6-14.6 [facility] Comment on above: Performed By: #### L 100.0100, L500.4050 #### [facility] [address] [place], [address] Hematocrit (Bld) [Volume fraction] 27.6 % Low 37-47 [facility] Comment on above: Performed By: #### L 100.0100, L500.4050 #### [facility] [address] [place], [address] Hemoglobin (Bld) [Mass/Vol] 9.4 g/dL Low 12.0-15.0 [facility] Comment on above: Performed By: #### L 100.0100, L500.4050 #### [facility] [address] [place], [address] IG% 0.600 Normal 0.0-0.9 [facility] Comment on above: Result Comment: IG% - Immature Granulocytes (promyelocytes, myelocytes and metamyelocytes) > 1% indicates that a LEFT SHIFT is Present. Performed By: #### L 100.0100, L500.4050 #### [facility] [address] [place], [address] Lymphocytes/100 WBC (Bld) 14.4 % Low 19-41 [facility] Comment on above: Performed By: #### L 100.0100, L500.4050 #### [facility] [address] [place], [address] MCH (RBC) [Entitic mass] 37.8 pg High 27.0-32.0 [facility] Comment on above: Performed By: #### L 100.0100, L500.4050 #### [facility] [address] [place], [address] MCHC (RBC) [Mass/Vol] 34.1 g/dL Normal 32-36 [facility] Comment on above: Performed By: #### L 100.0100, L500.4050 #### [facility] [address] [place], [address] MCV (RBC) [Entitic vol] 110.8 fL High 81-99 [facility] Comment on above: Performed By: #### L 100.0100, L500.4050 #### [facility] [address] [place], [address] Monocytes/100 WBC (Bld) 17.1 % High 0-10 [facility] Comment on above: Performed By: #### L 100.0100, L500.4050 #### [facility] [address] [place], [address] Neutrophils/100 WBC (Bld) 66.7 % Normal 47-70 [facility] Comment on above: Performed By: #### L 100.0100, L500.4050 #### [facility] [address] [place], [address] Nucleated RBC (Bld) [#/Vol] 0 10*3/uL Normal 0-5 [facility] Comment on above: Performed By: #### L 100.0100, L500.4050 #### [facility] [address] [place], [address] Platelet mean volume (Bld) [Entitic vol] 11.0 fL Normal 6.2-12.0 [facility] Comment on above: Performed By: #### L 100.0100, L500.4050 #### [facility] [address] [place], [address] Platelets (Bld) [#/Vol] 181 10*3/uL Normal 150-450 [facility] Comment on above: Performed By: #### L 100.0100, L500.4050 #### [facility] [address] [place], [address] RBC (Bld) [#/Vol] 2.49 10*6/uL Low 4.2-5.4 [facility] Comment on above: Performed By: #### L 100.0100, L500.4050 #### [facility] [address] [place], [address] RDW SD 62.7 fl High 35.1-43.9 [facility] Comment on above: Performed By: #### L 100.0100, L500.4050 #### [facility] [address] [place], [address] WBC (Bld) [#/Vol] 7.8 10*3/uL Normal 4.4-11.0 [facility] Comment on above: Performed By: #### L 100.0100, L500.4050 #### [facility] [address] [place], [address] Absolute Neut Normal 2.0-7.7 [facility] Comment on above: Result Comment: Canc elled via OM: Duplicate Order Performed By: #### L 500.2500, L100.0100 #### [facility] [address] [place], [address] HCT Normal 37-47 [facility] Comment on above: Result Comment: Canc elled via OM: Duplicate Order Performed By: #### L 500.2500, L100.0100 #### [facility] [address] [place], [address] HGB Normal 12.0-15.0 [facility] Comment on above: Result Comment: Canc elled via OM: Duplicate Order Performed By: #### L 500.2500, L100.0100 #### [facility] [address] [place], [address] MCH Normal 27.0-32.0 [facility] Comment on above: Result Comment: Canc elled via OM: Duplicate Order Performed By: #### L 500.2500, L100.0100 #### [facility] [address] [place], [address] MCHC Normal 32-36 [facility] Comment on above: Result Comment: Canc elled via OM: Duplicate Order Performed By: #### L 500.2500, L100.0100 #### [facility] [address] [place], [address] MCV Normal 81-99 [facility] Comment on above: Result Comment: Canc elled via OM: Duplicate Order Performed By: #### L 500.2500, L100.0100 #### [facility] [address] [place], [address] NEUT% Normal 47-70 [facility] Comment on above: Result Comment: Canc elled via OM: Duplicate Order Performed By: #### L 500.2500, L100.0100 #### [facility] [address] [place], [address] PLT Normal 150-450 [facility] Comment on above: Result Comment: Canc elled via OM: Duplicate Order Performed By: #### L 500.2500, L100.0100 #### [facility] [address] [place], [address] RBC Normal 4.2-5.4 [facility] Comment on above: Result Comment: Canc elled via OM: Duplicate Order Performed By: #### L 500.2500, L100.0100 #### [facility] [address], [address] RDW CV Normal 11.6-14.6 [facility] Comment on above: Result Comment: Canc elled via OM: Duplicate Order Performed By: #### L 500.2500, L100.0100 #### [facility] [address] [place], [address] RDW SD Normal 35.1-43.9 [facility] Comment on above: Result Comment: Canc elled via OM: Duplicate Order Performed By: #### L 500.2500, L100.0100 #### [facility] [address] [place], [address] WBC Normal 4.4-11.0 [facility] Comment on above: Result Comment: Canc elled via OM: Duplicate Order Performed By: #### L 500.2500, L100.0100 #### [facility] [address] [place], [address] [facility] de[facility] By: Geo Rodriguez on 10-19-2024 Glucose [Mass/Vol] 120 mg/dL High 74-106 [facility] Comment on above: MANAGEMENT OF PATIEN T CARE PER NURSING PROTOCOL Basic Metabolic Profile (BMP )on 10-18-2024 BUN/CRE 18.0 RATIO Normal 10-20 [facility] Comment on above: Performed By: #### L 500.4050, L506.1000, L100.0100, L501.9520 #### [facility] [address] [place], [address] Calcium [Mass/Vol] 8.5 mg/dL Normal 7.6-11.0 [facility] Comment on above: Performed By: #### L 500.4050, L506.1000, L100.0100, L501.9520 #### [facility] [address] [place], [address] Chloride [Moles/Vol] 99 mmol/L Normal 98-108 [facility] Comment on above: Performed By: #### L 500.4050, L506.1000, L100.0100, L501.9520 #### [facility] [address] [place], [address] CO2 [Moles/Vol] 22.0 mmol/L Normal 21.0-32.0 [facility] Comment on above: Performed By: #### L 500.4050, L506.1000, L100.0100, L501.9520 #### [facility] [address] [place], [address] Creatinine [Mass/Vol] 0.92 mg/dL Normal 0.70-1.20 [facility] Comment on above: Performed By: #### L 500.4050, L506.1000, L100.0100, L501.9520 #### [facility] [address] [place], [address] ECRCL 51.63 ml/min Normal 50-250 [facility] Comment on above: Performed By: #### L 500.4050, L506.1000, L100.0100, L501.9520 #### [facility] [address] [place], [address] GAP 11 Normal 5-15 [facility] Comment on above: Performed By: #### L 500.4050, L506.1000, L100.0100, L501.9520 #### [facility] [address] [place], [address] GFR/1.73 sq M.predicted among non-blacks MDRD (S/P/Bld) [Vol rate/Area] 63 mL/min/{1.73_m2} Normal >60 [facility] Comment on above: Result Comment: mL/m in/1.73m2 CKD-EPI Creatinine Equation (2020) Performed By: #### L 500.4050, L506.1000, L100.0100, L501.9520 #### [facility] [address] [place], [address] Glucose [Mass/Vol] 96 mg/dL Normal 70-99 [facility] Comment on above: Performed By: #### L 500.4050, L506.1000, L100.0100, L501.9520 #### [facility] [address] [place], [address] Potassium [Moles/Vol] 3.7 mmol/L Normal 3.3-5.1 [facility] Comment on above: Performed By: #### L 500.4050, L506.1000, L100.0100, L501.9520 #### [facility] [address] [place], [address] Sodium [Moles/Vol] 133 mmol/L Normal 133-145 [facility] Comment on above: Performed By: #### L 500.4050, L506.1000, L100.0100, L501.9520 #### [facility] [address] [place], [address] Urea nitrogen [Mass/Vol] 17 mg/dL Normal 4-19 [facility] Comment on above: Performed By: #### L 500.4050, L506.1000, L100.0100, L501.9520 #### [facility] [address] [place], [address] CBC W/Diff, Automatedon 07-3 0-2024 Absolute Lymph 0.76 X10 3/uL Low 0.83-4.51 [facility] Comment on above: Performed By: #### L 500.4050, L506.1000, L100.0100, L501.9520 #### [facility] [address] [place], [address] Absolute Neut 5.0 X10 3/uL Normal 2.0-7.7 [facility] Comment on above: Performed By: #### L 500.4050, L506.1000, L100.0100, L501.9520 #### [facility] [address] [place], [address] Basophils/100 WBC (Bld) 0.1 % Normal 0-1 [facility] Comment on above: Performed By: #### L 500.4050, L506.1000, L100.0100, L501.9520 #### [facility] [address] [place], [address] Eosinophils/100 WBC (Bld) 0.4 % Normal 0-5 [facility] Comment on above: Performed By: #### L 500.4050, L506.1000, L100.0100, L501.9520 #### [facility] [address] [place], [address] Erythrocyte distribution width (RBC) [Ratio] 15.6 % High 11.6-14.6 [facility] Comment on above: Performed By: #### L 500.4050, L506.1000, L100.0100, L501.9520 #### [facility] [address] [place], [address] Hematocrit (Bld) [Volume fraction] 28.2 % Low 37-47 [facility] Comment on above: Performed By: #### L 500.4050, L506.1000, L100.0100, L501.9520 #### [facility] [address] [place], [address] Hemoglobin (Bld) [Mass/Vol] 9.4 g/dL Low 12.0-15.0 [facility] Comment on above: Performed By: #### L 500.4050, L506.1000, L100.0100, L501.9520 #### [facility] [address] [place], [address] IG% 0.300 Normal 0.0-0.9 [facility] Comment on above: Result Comment: IG% - Immature Granulocytes (promyelocytes, myelocytes and metamyelocytes) > 1% indicates that a LEFT SHIFT is Present. Performed By: #### L 500.4050, L506.1000, L100.0100, L501.9520 #### [facility] [address] [place], [address] Lymphocytes/100 WBC (Bld) 11.1 % Low 19-41 [facility] Comment on above: Performed By: #### L 500.4050, L506.1000, L100.0100, L501.9520 #### [facility] [address] [place], [address] MCH (RBC) [Entitic mass] 36.9 pg High 27.0-32.0 [facility] Comment on above: Performed By: #### L 500.4050, L506.1000, L100.0100, L501.9520 #### [facility] [address] [place], [address] MCHC (RBC) [Mass/Vol] 33.3 g/dL Normal 32-36 [facility] Comment on above: Performed By: #### L 500.4050, L506.1000, L100.0100, L501.9520 #### [facility] [address] [place], [address] MCV (RBC) [Entitic vol] 110.6 fL High 81-99 [facility] Comment on above: Performed By: #### L 500.4050, L506.1000, L100.0100, L501.9520 #### [facility] [address] [place], [address] Monocytes/100 WBC (Bld) 14.6 % High 0-10 [facility] Comment on above: Performed By: #### L 500.4050, L506.1000, L100.0100, L501.9520 #### [facility] [address] [place], [address] Neutrophils/100 WBC (Bld) 73.5 % High 47-70 [facility] Comment on above: Performed By: #### L 500.4050, L506.1000, L100.0100, L501.9520 #### [facility] [address] [place], [address] Nucleated RBC (Bld) [#/Vol] 0 10*3/uL Normal 0-5 [facility] Comment on above: Performed By: #### L 500.4050, L506.1000, L100.0100, L501.9520 #### [facility] [address] [place], [address] Platelet mean volume (Bld) [Entitic vol] 10.4 fL Normal 6.2-12.0 [facility] Comment on above: Performed By: #### L 500.4050, L506.1000, L100.0100, L501.9520 #### [facility] [address] [place], [address] Platelets (Bld) [#/Vol] 176 10*3/uL Normal 150-450 [facility] Comment on above: Performed By: #### L 500.4050, L506.1000, L100.0100, L501.9520 #### [facility] [address] [place], [address] RBC (Bld) [#/Vol] 2.55 10*6/uL Low 4.2-5.4 [facility] Comment on above: Performed By: #### L 500.4050, L506.1000, L100.0100, L501.9520 #### [facility] [address] [place], [address] RDW SD 62.7 fl High 35.1-43.9 [facility] Comment on above: Performed By: #### L 500.4050, L506.1000, L100.0100, L501.9520 #### [facility] [address] [place], [address] WBC (Bld) [#/Vol] 6.8 10*3/uL Normal 4.4-11.0 [facility] Comment on above: Performed By: #### L 500.4050, L506.1000, L100.0100, L501.9520 #### [facility] [address] [place], [address] HH, Hemoglobin AND Hematocri ton 10-18-2024 Hematocrit (Bld) [Volume fraction] 28.2 % Low 37-47 [facility] Comment on above: Performed By: #### L 100.0600 #### [facility] [address] [place], [address] Hemoglobin (Bld) [Mass/Vol] 9.5 g/dL Low 12.0-15.0 [facility] Comment on above: Performed By: #### L 100.0600 #### [facility] [address] [place], [address] Ankle min 3 Viewson 10-18-19 25 Ankle min 3 Views [facility] [address] [place] [address] Ankle min 3 Views MR#: [id number] Acct: [id number] Name: BERNICE JUAN Rep #: [id number] : 1945 F 79 From: Smith Montes MD PCP: Dr. Dago Emrey MD Status: ADM EDDIE Study: Ankle min 3 Views Date of Exam: 10/17/24 Exam# [id number] Ordering Dr: Nela Casanova PROCEDURE: LEFT ANKLE MIN 3 VIEWS 10/17/2024 REASON FOR EXAM: PAIN TECHNIQUE: LEFT ANKLE MIN 3 VIEWS COMPARISON: None. FINDINGS: There is an acute transversely oriented nondisplaced fracture through the distal tibial metadiaphysis. No additional acute fracture appreciated. No dislocation. Ankle mortise is congruent. Chronic fracture deformities of the visualized mid-distal tibial and fibular diaphyses, with ghost tracts reflecting previous orthopedic fixation hardware. Marked diffuse qualitative osteopenia. Mild degenerative changes of the intertarsal joints. Mild dorsal and plantar calcaneal spurring. Generalized soft tissue swelling about the lower extremity/ankle. No radiopaque foreign body. RAD/Ankle min 3 Views IMPRESSION: Acute nondisplaced impacted fracture of the distal left tibial metadiaphysis, with no intra- articular extension appreciated. Congruent ankle mortise. Reading Location: [id number] CC: ADRYAN Holland; Dr. Dago Emery MD Deployment Engineer: Signed Normal [facility] Basic Metabolic Profile (BMP )on 10-17-2024 BUN/CRE 20.7 RATIO High 10-20 [facility] Comment on above: Performed By: #### L 100.0100, L500.4050 #### [facility] [address] [place], [address] Calcium [Mass/Vol] 8.6 mg/dL Normal 7.6-11.0 [facility] Comment on above: Performed By: #### L 100.0100, L500.4050 #### [facility] [address] [place], [address] Chloride [Moles/Vol] 103 mmol/L Normal 98-108 [facility] Comment on above: Performed By: #### L 100.0100, L500.4050 #### [facility] [address] [place], [address] CO2 [Moles/Vol] 20.7 mmol/L Low 21.0-32.0 [facility] Comment on above: Performed By: #### L 100.0100, L500.4050 #### [facility] [address] [place], [address] Creatinine [Mass/Vol] 0.68 mg/dL Low 0.70-1.20 [facility] Comment on above: Performed By: #### L 100.0100, L500.4050 #### [facility] [address] [place], [address] ECRCL 59.38 ml/min Normal 50-250 [facility] Comment on above: Performed By: #### L 100.0100, L500.4050 #### [facility] [address] [place], [address] GAP 12 Normal 5-15 [facility] Comment on above: Performed By: #### L 100.0100, L500.4050 #### [facility] [address] [place], [address] GFR/1.73 sq M.predicted among non-blacks MDRD (S/P/Bld) [Vol rate/Area] 87 mL/min/{1.73_m2} Normal >60 [facility] Comment on above: Result Comment: mL/m in/1.73m2 CKD-EPI Creatinine Equation (2020) Performed By: #### L 100.0100, L500.4050 #### [facility] [address] [place], [address] Glucose [Mass/Vol] 135 mg/dL High 70-99 [facility] Comment on above: Performed By: #### L 100.0100, L500.4050 #### [facility] [address] [place], [address] Potassium [Moles/Vol] 3.9 mmol/L Normal 3.3-5.1 [facility] Comment on above: Performed By: #### L 100.0100, L500.4050 #### [facility] [address] [place], [address] Sodium [Moles/Vol] 136 mmol/L Normal 133-145 [facility] Comment on above: Performed By: #### L 100.0100, L500.4050 #### [facility] [address] [place], [address] Urea nitrogen [Mass/Vol] 14 mg/dL Normal 4-19 [facility] Comment on above: Performed By: #### L 100.0100, L500.4050 #### [facility] [address] [place], [address] CBC-Complete Blood Cnt No Di ffon 10-17-2024 Erythrocyte distribution width (RBC) [Ratio] 15.9 % High 11.6-14.6 [facility] Comment on above: Performed By: #### L 100.0100, L500.4050 #### [facility] [address] [place], [address] Hematocrit (Bld) [Volume fraction] 30.5 % Low 37-47 [facility] Comment on above: Performed By: #### L 100.0100, L500.4050 #### [facility] [address] [place], [address] Hemoglobin (Bld) [Mass/Vol] 10.2 g/dL Low 12.0-15.0 [facility] Comment on above: Performed By: #### L 100.0100, L500.4050 #### [facility] [address] [place], [address] MCH (RBC) [Entitic mass] 37.2 pg High 27.0-32.0 [facility] Comment on above: Performed By: #### L 100.0100, L500.4050 #### [facility] [address] [place], [address] MCHC (RBC) [Mass/Vol] 33.4 g/dL Normal 32-36 [facility] Comment on above: Performed By: #### L 100.0100, L500.4050 #### [facility] [address] [place], [address] MCV (RBC) [Entitic vol] 111.3 fL High 81-99 [facility] Comment on above: Performed By: #### L 100.0100, L500.4050 #### [facility] [address] [place], [address] Platelet mean volume (Bld) [Entitic vol] 10.6 fL Normal 6.2-12.0 [facility] Comment on above: Performed By: #### L 100.0100, L500.4050 #### [facility] Laboratory [address] [place], [address] Platelets (Bld) [#/Vol] 176 10*3/uL Normal 150-450 [facility] Comment on above: Performed By: #### L 100.0100, L500.4050 #### [facility] Laboratory [address] [place], [address] RBC (Bld) [#/Vol] 2.74 10*6/uL Low 4.2-5.4 [facility] Comment on above: Performed By: #### L 100.0100, L500.4050 #### [facility] Laboratory [address] [place], [address] RDW SD 65.1 fl High 35.1-43.9 [facility] Comment on above: Performed By: #### L 100.0100, L500.4050 #### [facility] Laboratory [address] [place], [address] WBC (Bld) [#/Vol] 7.1 10*3/uL Normal 4.4-11.0 [facility] Comment on above: Performed By: #### L 100.0100, L500.4050 #### [facility] Laboratory [address] [place], [place], [id number] Extremity Lower without Cont raon 10-17-2024 Extremity Lower without Contra [facility] Imaging Services [address] [place] [address] Extremity Lower without Contra MR#: [id number] Acct: [id number] Name: BERNICE JUAN Rep #: [id number] : 1945 F 79 From: Neftaly Osman MD PCP: Dr. Dago Emery MD Status: ADM EDDIE Study: Extremity Lower without Contra Date of Exam: 0 10/17/24 Exam# [id number] Ordering Dr: Nela Casanova PROCEDURE: EXTREMITY LOWER WITHOUT CONTRA 10/17/2024 REASON FOR EXAM: PAIN TECHNIQUE: EXTREMITY LOWER WITHOUT CONTRA Coronal and Sagittal reconstruction series were provided. One or more dose reduction techniques were used (e.g., Automated exposure control, adjustment of the mA and/or kV according to patient size, use of iterative reconstruction technique). RADIATION DOSE SUMMARY: CTDlvol: 15 mGy DLP: 657 mGycm COMPARISON: X-ray 10/17/2024 FINDINGS: Old mid shaft tibia and fibular fractures with complete healing. Remnants of previous tibial nail and fixation screws incidentally noted. In the tibia, distal meta diaphyseal junction, there is an acute fracture, obliquely horizontal in orientation, that does not extend to the articular surface. The distal fibula shows no acute injury. Ankle joint is intact. No acute foot injury noted. CT/Extremity Lower without Contra IMPRESSION: Acute distal tibial meta diaphyseal junction fracture, no extension to the articular surface. No acute distal fibular fracture associated. No dislocation. Reading Location: [place] [address] CC: ADRYAN Holland; Dr. Dago Emery MD Deployment Engineer: Signed Normal [facility] Bedside Glucoseon 10-16-2024 FINGERSTICK GLU 113 mg/dL High 74-106 [facility] Comment on above: Result Comment: TRACEY SALDAÑA OF PATIENT CARE PER NURSING PROTOCOL Performed By: #### L 500.4050, L506.1000, L100.0100, L501.9520 #### [facility] Laboratory [address] [place], [address] Consultation - Hospitaliston 10-16-2024 Consultation - Hospitalist [facility] Medical Records Department [address] [place] [address] Consultation - Hospitalist 10/16/241953 MR#: [id number] Acct: [id number] Name: BERNICE JUAN Rep #: [id number] : 1945 79 From: Saulo Bullock DO PCP: Dr. Dago Emery MD Status:ADM IN Location: [place] [address] Assessment Plan Assessment/Plan (1) Status post total left knee replacement: PLAN: Plan Patient is an 79-year-old female who presented [facility] on 10/16/2024 for planned left total knee [...] is a 79 F who presented to [facility] on 10/16/2024 for planned left knee replacement. [...] Denied any other pain or discomfort currently. [facility] Medical History Cardiology follow-up encounter Wears glasses [...] Surgical History (more content not included)... Normal [facility] Knee 1 or 2 Viewson 10-17-19 Knee 1 or 2 Views [facility] Imaging Services [address] [place] [address] Knee 1 or 2 Views MR#: [id number] Acct: [id number] Name: BERNICE JUAN Rep #: [id number] : 1945 F 79 From: Smith Montes MD PCP: Dr. Dago Emery MD Status: ADM IN Study: Knee 1 or 2 Views Date of Exam: 10/16/24 Exam# [id number] Ordering Dr: Geo Rodriguez MD PROCEDURE: LEFT [...] hardware and expected postop changes. Reading Location: [facility] CC: Dr. Geo Rodriguez MD; Dr. Dago Emery MD Deployment Engineer: Signed [facility] Knee 1 or 2 Views [facility] Imaging Services [address] [place] [address] Knee 1 or 2 Views MR#: [id number] Acct: [id number] Name: BERNICE JUAN Rep #: [id number] : 1945 F 79 From: Raciel mcgee MD PCP: Dr. Dago Emery MD Status: ADM IN Study: Knee 1 or 2 Views Date of Exam: 10/16/24 Exam# [id number] Ordering Dr: Geo Rodriguez MD PROCEDURE: KNEE 1 OR 2 VIEWS 10/16/2024 REASON FOR EXAM: ROBOTIC ASSISTED LEFT TOTAL KNEE ARTHROPLASTY WITH TIBIAL NAIL TECHNIQUE: Intraoperative fluoroscopic services provided for tibial nail. Radiation dose: Fluoroscopy: 21.6 seconds. 0.91 mGy COMPARISON: None FINDINGS: Intraoperative fluoroscopic services provided for intramedullary nailing of the tibia. RAD/Knee 1 or 2 Views IMPRESSION: Intraoperative fluoroscopic services provided for intramedullary nailing of the tibia. Reading Location: [id number] CC: Dr. Geo Rodriguez MD; Dr. Dago Emery MD Deployment Engineer: Signed [facility] MR/POSTOP.ANEon 10-16-2024 [facility] [address] [place] [address] Anesthesia Postop Eval I 10/16/24 1849 MR#: [id number] Acct: [id number] Name: BERNICE JUAN Rep #: [id number] : 1945 79 From: Ki Cabrera MD PCP: Dr. Dago Emery MD Status:ADM IN Y Race: C Location: [place] [address] Anesthesia: Postop Eval I Current Vital Signs [...] Postop Eval 1 completed: Yes 10/16/241849 Date Ki Cabrera MD Cosigner Signature: Date CC: Signed Normal [facility] MR/WSLBAVIT2do 10-16-2024 [facility] Medical Records Department [address] [place] [address] Anesthesia Postop Eval II 10/16/241849 MR#: [id number] Acct: [id number] Name: BERNICE JUAN Rep #: [id number] : 1945 79 From: Ki Cabrera MD PCP: Dr. Dago Emery MD Status:ADM IN Y Race: C Location: [place] [address] Anesthesia Postop Eval I Sum Postop Eval [...] No Vomiting: No 10/16/24 1850 Date Ki Germain Signature: Date CC: Signed Normal [facility] MRSA/SAID NASAL SCREENon MRSA+SAID SCRN Negative Normal [facility] Comment on above: Performed By: #### L 500.4050, L506.1000, L100.0100, L501.9520 #### [facility] Laboratory [address] [place], [address] Absolute lymphocyte countOrd ered By: Carolyn Ruvalcaba on 10-11-2024 Lymphocytes Auto (Unsp spec) [#/Vol] 1.13 10*3/uL 0.83-4.51 [facility] Absolute neutrophil countOrd ered By: Carolyn Ruvalcaba on 10-11-2024 Neutrophils (Bld) [#/Vol] 2.1 10*3/uL 2.0-7.7 [facility] Anion gap in Serum or Plasma Ordered By: Carolyn Ruvalcaba on 10-11-2024 Anion gap [Moles/Vol] 13 mmol/L 5-15 [facility] Automated lymphocyte count a s percentage of total leukocytesOrdered By: Carolyn Ruvalcaba on 10-11-2024 Lymphocytes/100 WBC Auto (Unsp spec) 30.5 % -41 [facility] BUN/creatinine ratioOrdered By: Carolyn Ruvalcaba on 10-11-2024 Urea nitrogen/Creatinine [Mass ratio] 14.2 mg/mg 10-20 [facility] Basophil percentageOrdered B y: Carolyn Ruvalcaba on 10-11-2024 Basophils/100 WBC (Bld) 0.3 % 0-1 [facility] Bilirubin, totalOrdered By: Carolyn Ruvalcaba on 10-11-2024 Bilirubin [Mass/Vol] 0.40 mg/dL 0.00-1.30 [facility] Blood manual differential co mment interpretation (narrative result)Ordered By: Carolyn Ruvalcaba on 10-11-2024 Manual differential comment Jack (Bld) [Interp] SCANNED [facility] Blood polychromasia detectio n by light microscopyOrdered By: aCrolyn Ruvalcaba on 10-11-2024 Polychromasia LM Ql (Bld) 1+ [facility] CBC W/Diff, Automatedon 09-20 Anisocytosis Ql (Bld) 1+ Normal [facility] Comment on above: Performed By: #### L 500.4050, L506.1000, L100.0100, L501.9520 #### [facility] Laboratory [address] [place], [address] POLYCHROMASIA 1+ Normal [facility] Comment on above: Performed By: #### L 500.4050, L506.1000, L100.0100, L501.9520 #### [facility] Laboratory [address] [place], [address] PLT EST ADEQUATE Normal ADEQ [facility] Comment on above: Performed By: #### L 500.4050, L506.1000, L100.0100, L501.9520 #### [facility] Laboratory [address] [place], [address] SMEAR COMMENT SCANNED Normal [facility] Comment on above: Performed By: #### L 500.4050, L506.1000, L100.0100, L501.9520 #### [facility] Laboratory [address] [place], [address] Carbon dioxide, total [Moles /volume] in Central venous bloodOrdered By: Carolyn Peg on 10-11-2024 CO2 [Moles/Vol] 21.4 mmol/L 21.0-32.0 [facility] Chloride assayOrdered By: Ty ra Ruvalcaba on 10-11-2024 Chloride [Moles/Vol] 102 mmol/L 98-108 [facility] Comprehensive Metabolic Prof ilon 10-11-2024 Albumin [Mass/Vol] 4.0 g/dL Normal 3.4-4.8 [facility] Comment on above: Order Comment: CC: C MP CBCD TO DR RODRIGUEZ Performed By: #### L 500.4050, L506.1000, L100.0100, L501.9520 #### [facility] Laboratory [address] [place], [address] Albumin/Globulin [Mass ratio] 1.4 {ratio} Normal 0.9-2.4 [facility] Comment on above: Order Comment: CC: C MP CBCD TO DR RODRIGUEZ Performed By: #### L 500.4050, L506.1000, L100.0100, L501.9520 #### [facility] Laboratory [address] [place], [address] ALK PHOS 82 U/L Normal 35-104 [facility] Comment on above: Order Comment: CC: C MP CBCD TO DR RODRIGUEZ Performed By: #### L 500.4050, L506.1000, L100.0100, L501.9520 #### [facility] Laboratory [address], [address] ALT [Catalytic activity/Vol] 14 U/L Normal <=34 [facility] Comment on above: Order Comment: CC: C MP CBCD TO DR RODRIGUEZ Performed By: #### L 500.4050, L506.1000, L100.0100, L501.9520 #### [facility] Laboratory [address] [place], [address] AST [Catalytic activity/Vol] 22 U/L Normal <=31 [facility] Comment on above: Order Comment: CC: C MP CBCD TO DR RODRIGUEZ Performed By: #### L 500.4050, L506.1000, L100.0100, L501.9520 #### [facility] Laboratory [address] [place], [address] Bilirubin [Mass/Vol] 0.40 mg/dL Normal 0.00-1.30 [facility] Comment on above: Order Comment: CC: C MP CBCD TO DR RODRIGUEZ Performed By: #### L 500.4050, L506.1000, L100.0100, L501.9520 #### [facility] Laboratory [address] [place], [address] BUN/CRE 14.2 RATIO Normal 10-20 [facility] Comment on above: Order Comment: CC: C MP CBCD TO DR RODRIGUEZ Performed By: #### L 500.4050, L506.1000, L100.0100, L501.9520 #### [facility] Laboratory [address] [place], [address] Calcium [Mass/Vol] 9.3 mg/dL Normal 7.6-11.0 [facility] Comment on above: Order Comment: CC: C MP CBCD TO DR RODRIGUEZ Performed By: #### L 500.4050, L506.1000, L100.0100, L501.9520 #### [facility] Laboratory [address] [place], [address] Chloride [Moles/Vol] 102 mmol/L Normal 98-108 [facility] Comment on above: Order Comment: CC: C MP CBCD TO DR RODRIGUEZ Performed By: #### L 500.4050, L506.1000, L100.0100, L501.9520 #### [facility] Laboratory [address] [place], [address] CO2 [Moles/Vol] 21.4 mmol/L Normal 21.0-32.0 [facility] Comment on above: Order Comment: CC: C MP CBCD TO DR RODRIGUEZ Performed By: #### L 500.4050, L506.1000, L100.0100, L501.9520 #### [facility] Laboratory [address] [place], [address] Creatinine [Mass/Vol] 1.08 mg/dL Normal 0.70-1.20 [facility] Comment on above: Order Comment: CC: C MP CBCD TO DR RODRIGUEZ Performed By: #### L 500.4050, L506.1000, L100.0100, L501.9520 #### [facility] Laboratory [address] [place], [address] ECRCL 44.99 ml/min Low 50-250 [facility] Comment on above: Order Comment: CC: C MP CBCD TO DR RODRIGUEZ Performed By: #### L 500.4050, L506.1000, L100.0100, L501.9520 #### [facility] Laboratory [address] [place], [address] GAP 13 Normal 5-15 [facility] Comment on above: Order Comment: CC: C MP CBCD TO DR RODRIGUEZ Performed By: #### L 500.4050, L506.1000, L100.0100, L501.9520 #### [facility] Laboratory [address] [place], [address] GFR/1.73 sq M.predicted among non-blacks MDRD (S/P/Bld) [Vol rate/Area] 52 mL/min/{1.73_m2} Low >60 [facility] Comment on above: Order Comment: CC: C MP CBCD TO DR RODRIGUEZ Result Comment: mL/m in/1.73m2 CKD-EPI Creatinine Equation (2020) Performed By: #### L 500.4050, L506.1000, L100.0100, L501.9520 #### [facility] Laboratory [address] [place], [address] Globulin (S) [Mass/Vol] 2.9 g/dL Normal 2.2-4.2 [facility] Comment on above: Order Comment: CC: C MP CBCD TO DR RODRIGUEZ Performed By: #### L 500.4050, L506.1000, L100.0100, L501.9520 #### [facility] Laboratory [address] [place], [address] Glucose [Mass/Vol] 129 mg/dL High 70-99 [facility] Comment on above: Order Comment: CC: C MP CBCD TO DR RODRIGUEZ Performed By: #### L 500.4050, L506.1000, L100.0100, L501.9520 #### [facility] Laboratory [address] [place], [address] Potassium [Moles/Vol] 4.1 mmol/L Normal 3.3-5.1 [facility] Comment on above: Order Comment: CC: C MP CBCD TO DR RODRIGUEZ Performed By: #### L 500.4050, L506.1000, L100.0100, L501.9520 #### [facility] Laboratory [address] [place], [address] Sodium [Moles/Vol] 136 mmol/L Normal 133-145 [facility] Comment on above: Order Comment: CC: C MP CBCD TO DR RODRIGUEZ Performed By: #### L 500.4050, L506.1000, L100.0100, L501.9520 #### [facility] Laboratory [address] [place], [address] T PROT 6.9 g/dL Normal 5.9-8.4 [facility] Comment on above: Order Comment: CC: C MP CBCD TO DR RODRIGUEZ Performed By: #### L 500.4050, L506.1000, L100.0100, L501.9520 #### [facility] Laboratory [address] [place], [address] Urea nitrogen [Mass/Vol] 15 mg/dL Normal 4-19 [facility] Comment on above: Order Comment: CC: C MP CBCD TO DR RODRIGUEZ Performed By: #### L 500.4050, L506.1000, L100.0100, L501.9520 #### [facility] Laboratory [address] [place], [address] Eosinophil percentageOrdered By: Carolyn Ruvalcaba on 10-11-2024 Eosinophils/100 WBC (Bld) 1.1 % 0-5 [facility] Erythrocyte distribution wid th ratioOrdered By: [facility] on 10-11-2024 Erythrocyte distribution width (RBC) [Ratio] 16.2 % High 11.6-14.6 [facility] Erythrocyte distribution wid th standard deviationOrdered By: Carolynmilka Ruvalcaba on 10-11-2024 Erythrocyte distribution width (RBC) [Ratio] 65.8 fl High 35.1-43.9 [facility] Glomerular filtration rate ( GFR) estimation/1.73 sq m using serum, plasma, or whole bOrdered By: Carolyn Ruvalcaba on 10-11-2024 GFR/1.73 sq M.predicted among non-blacks MDRD (S/P/Bld) [Vol rate/Area] 52 mL/min/{1.73_m2} Low >60 [facility] Comment on above: mL/min/1.73m2 CKD-EP I Creatinine Equation (2020) Hematocrit Auto (Bld) [Volum e fraction]Ordered By: Carolyn Ruvalcaba on 10-11-2024 Hematocrit (Bld) [Volume fraction] 36.1 % Low 37-47 [facility] Hemoglobin measurementOrdere d By: Carolyn Ruvalcaba on 10-11-2024 Hemoglobin (Bld) [Mass/Vol] 12.1 g/dL 12.0-15.0 [facility] Immature granulocytes/100 WB C Auto (Bld)Ordered By: Carolyn Ruvalcaba on 10-11-2024 Immature granulocytes/100 WBC (Bld) 0.500 % 0.0-0.9 [facility] Comment on above: IG% - Immature Granu locytes (promyelocytes, myelocytes and metamyelocytes) > 1% indicates that a LEFT SHIFT is Present. Laboratory - Chemistry and C hemistry - challengeOrdered By: Carolyn Ruvalcaba on 10-11-2024 AST [Catalytic activity/Vol] 22 U/L <32 [facility] Laboratory - Hematology and Cell countsOrdered By: Carolyn Ruvalcaba on 10-11-2024 Anisocytosis Ql (Bld) 1+ [facility] MCV (mean corpuscular volume ) determinationOrdered By: Carolyn Ruvalcaba on 10-11-2024 MCV (RBC) [Entitic vol] 110.7 fL High 81-99 [facility] MRSA screenOrdered By: Az Rodriguez on 10-11-2024 MRSA DNA JANY+probe Ql (Unsp spec) [facility] Mean corpuscular hemoglobin (MCH) determinationOrdered By: Carolyn Ruvalcaba on 10-11-2024 MCH (RBC) [Entitic mass] 37.1 pg High 27.0-32.0 [facility] Mean corpuscular hemoglobin concentration (MCHC) determinationOrdered By: Carolyn Ruvalcaba on 10-11-2024 MCHC (RBC) [Mass/Vol] 33.5 g/dL 32-36 [facility] Mean platelet volume determi nationOrdered By: Carolyn Ruvalcaba on 10-11-2024 Platelet mean volume (Bld) [Entitic vol] 10.3 fL 6.2-12.0 [facility] Monocyte percentageOrdered B y: Carolyn Ruvalcaba on 10-11-2024 Monocytes/100 WBC (Bld) 10.3 % High 0-10 [facility] Neutrophil percentageOrdered By: Carolyn Ruvalcaba on 10-11-2024 Neutrophils/100 WBC (Bld) 57.3 % 47-70 [facility] Nucleated red blood cell per centageOrdered By: Carolyn Ruvalcaba on 10-11-2024 Nucleated RBC/100 WBC (Bld) [Ratio] 0 % 0-5 [facility] Oncology Visit Reporton 09-20 Oncology Visit Report [facility] [place] [facility] [address] [place] [address] OFFICE VISIT Date of Service: 10/11/24 1453 MR#: [id number] Acct: [id number] Name: BERNICE JUAN Rep #: [id number] : 1945 From: Carolyn EcholsC Age/Sex: 79/F Location: [facility] Status: Signed HPI Subjective Date of Service [...] episodes of overt bleeding, + bruises easily. [facility] Medical History (Updated 10/04/24 @ 13:55 by [...] never substance use type: does not use justice/christianity: Judaism seatbelt use: always do you feel safe [...] and palat (more content not included)... Normal [facility] Platelet countOrdered By: Ty ra Ruvalcaba on 10-11-2024 Platelets (Bld) [#/Vol] 244 10*3/uL 150-450 [facility] Platelet estimateOrdered By: Carolyn Ruvalcaba on 10-11-2024 Platelets LM Ql (Bld) ADEQUATE ADEQ [facility] Potassium measurement (mass/ volume)Ordered By: Carolyn Ruvalcaba on 10-11-2024 Potassium (Unsp spec) [Mass/Vol] 4.1 mmol/L 3.3-5.1 [facility] RBC Auto (Bld) [#/Vol]Ordere d By: Carolyn Ruvalcaba on 10-11-2024 RBC (Bld) [#/Vol] 3.26 10*6/uL Low 4.2-5.4 [facility] Serum creatinine measurement (mass/volume)Ordered By: Carolyn Ruvalcaba on 10-11-2024 Creatinine [Mass/Vol] 1.08 mg/dL 0.70-1.20 [facility] Serum globulin measurementOr dered By: Carolyn Ruvalcaba on 10-11-2024 Globulin (S) [Mass/Vol] 2.9 g/dL 2.2-4.2 [facility] Serum glucose measurement (m ass/volume)Ordered By: Carolyn Ruvalcaba on 10-11-2024 Glucose [Mass/Vol] 129 mg/dL High 70-99 [facility] Serum or plasma alanine bey otransferase (ALT) measurementOrdered By: Carolyn Ruvalcaba on 10-11-2024 ALT [Catalytic activity/Vol] 14 U/L <35 [facility] Serum or plasma albumin niels urement (mass/volume)Ordered By: Carolyn Ruvalcaba on 10-11-2024 Albumin [Mass/Vol] 4.0 g/dL 3.4-4.8 [facility] Serum or plasma albumin/glob ulin mass ratioOrdered By: [facility]ac[facility] Hospital[facility]eg on 10-11-2024 Albumin/Globulin [Mass ratio] 1.4 {ratio} 0.9-2.4 [facility] Serum or plasma alkaline victor hugo sphatase measurementOrdered By: Carolyn Ruvalcaba on 10-11-2024 ALP [Catalytic activity/Vol] 82 U/L 35-104 [facility] Serum or plasma calcium niels urement (mass/volume)Ordered By: Carolyn Ruvalcaba on 10-11-2024 Calcium [Mass/Vol] 9.3 mg/dL 7.6-11.0 [facility] Serum or plasma urea nitroge n measurement (mass/volume)Ordered By: [facility]Robert [facility] on 10-11-2024 Urea nitrogen [Mass/Vol] 15 mg/dL 4-19 [facility] Sodium levelOrdered By: [facility] on 10-11-2024 Sodium [Moles/Vol] 136 mmol/L 133-145 [facility] Total proteinOrdered By: Nayan Ruvalcaba on 10-11-2024 Protein [Mass/Vol] 6.9 g/dL 5.9-8.4 [facility] White blood cell (WBC) count Ordered By: [facility] on 10-11-2024 WBC (Bld) [#/Vol] 3.7 10*3/uL Low 4.4-11.0 [facility] MR/PAT.ANEon 10-05-2024 MR/PAT.ANE [facility] Medical Records Department [address] [place] [address] PAT - Anesthesia 10/05/24 1553 MR#: [id number] Acct: [id number] Name: BERNICE JUAN Rep #: [id number] : 1945 79 From: Avery Rod MD PCP: Dr. 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 - mailmaster Female Yes 10/04/24 13:47 HX of Motion [...] 09/20/24 14:30 Respiratory Assessment Respiratory Assessment - mailmaster: Respiratory Tract Infection Hx - mailmaster Hx Respiratory Tract Infection No 10/04/24 13:47 STOP Sleep Apnea STOP Sleep Apnea - mailmaster: STOP Sleep Apnea - mailmaster Hx Hypertension Yes: CONTROLLED WITH MED 10/04/24 [...] Tobacco Use History Tobacco Use History - mailmaster: Tobacco Use History - mailmaster Tobacco Use Smoking Status Never smoker 10/04/24 13:47 Hx Tobacco Use No 10/04/24 13:47 Years Smoking Packs Smoked per Day Smoking Cessation Date was within the last 15 years Hx Smoking Cessation Date Hx Smoking Cessation Counseling Hematologic Medial History Hematologic Hx - mailmaster: 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 Normal [facility] Cardiology Visit Reporton Cardiology Visit Report [facility] [address] [place] [address] OFFICE VISIT Date of Service: 09/20/24 MR#: [id number] Acct: [id number] Name: BERNICE JUAN Rep #: [id number] : 1945 Provider: Dr. Omero betancur MD Age/Sex: 79/F Location: [facility] Status: Signed HPI HPI History of Present [...] report Intake Visit Reasons: ABN EKG (Rupert) Basket Person Required: No Accompanied by: Self Is patient [...] never substance use type: does not use justice/christianity: Judaism seatbelt use: always do you feel safe at home: Yes ROS Const Const: Positive for fatigue and weakness ENT ENT: Negative for dizziness or balance problems Cardio Chest Pain: No Palpitations: No Edema: Right Muscle ach (more content not included)... Normal [facility] Electrocardiogram reportOrde red By: Omero Armas on 08-03-2024 EKG study [facility] Cardiovascular Services [address] [place] [address] 12 Lead EKG 08/01/24 1400 MR#: [id number] Acct: [id number] Name: BERNICE JUAN Rep #:[id number] : 1945 79 From: Omero betancur MD Attending Dr: Dr. Dago Emery MD Status: REG CLI Ordering Dr: Dago Emery MD Date: Location: [facility] Sex: F C Admitted: Test Reason : PREOP Blood Pressure : */* mmHG Vent. Rate : 50 BPM Atrial Rate : 50 BPM P-R Int : 196 ms QRS Dur : 84 ms QT Int : 440 ms P-R-T Axes : 67 73 47 degrees QTcB Int : [address] abnormality, possible digitalis effect Abnormal ECG Confirmed by Omero Armas ([id number]), newspaper photo editor BONY SANCHEZ ([id number]) on 08/03/2024 10:09:09 AM Referred By: Dago Emery Confirmed By: Omero Armas 08/03/24 1009 Date _ Omero Armas MD CC: Dr. Dago Emery MD ~ Signed [facility] Other Phone: MRSA/SAID NASAL SCREENon MRSA+SAID SCRN Reason for Exam: PRE OP MRSA MRSA Negative S. AUREUS S. aureus Negative Normal [facility] Comment on above: Performed By: #### L 500.4050, L506.1000, L100.0100, L501.9520 #### [facility] Laboratory [address] [facility] [address] [place], [place], [id number] 12 Lead EKGon 08-01-2024 12 Lead EKG [facility] Cardiovascular Services [address] [place] [address] 12 Lead EKG 08/01/24 1400 MR#: [id number] Acct: [id number] Name: BERNICE JUAN Rep #: [id number] : 1945 79 From: Omero Armas MD Attending Dr: Dr. Dago Emery MD Status: REG CLI Ordering Dr: Dago Emery MD Date: 08/01/24 Location: [facility] Sex: F C Admitted: Test Reason : PREOP Blood Pressure : */* mmHG Vent. Rate : 50 BPM Atrial Rate : 50 BPM P-R Int : 196 ms QRS Dur : 84 ms QT Int : 440 ms P-R-T Axes : 67 73 47 degrees QTcB Int : [address] abnormality, possible digitalis effect Abnormal ECG Confirmed by Omero Armas ([id number]), newspaper photo editor BONY SANCHEZ ([id number]) on 08/03/2024 10:09:09 AM Referred By: Dago Emery Confirmed By: Omero Armas 08/03/24 1009 Date Omero Armas MD CC: Dr. Dago Emery MD Signed Normal [facility] Extremity Lower without Cont raon 08-01-2024 Extremity Lower without Contra [facility] Imaging Services [address] [facility] [address] Extremity Lower without Contra MR#: [id number] Acct: [id number] Name: BERNICE JUAN Rep #: [id number] : 1945 F 79 From: Howard Crocker PCP: Dr. Dago Emery MD Status: REG CLI Study: Extremity Lower without Contra Date of Exam: 0 08/01/24 Exam# [id number] Ordering Dr: Geo Rodriguez MD PROCEDURE: EXTREMITY [...] left tibia without apparent complication. Reading Location: [place] [address] CC: Dr. Geo Rodriguez MD; Dr. Dago Emery MD Deployment Engineer: Signed [facility] Medical Records Department [address] [place] [address] PAT - Anesthesia 08/01/24 1627 MR#: [id number] Acct: [id number] Name: BERNIEC JUAN Rep #: [id number] : 1945 79 From: Ilya Coelho MD PCP: Dr. 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 History - mailmaster Hx Hospitalization No 07/31/24 11:35 Any Problems [...] take am of surgery PONV PONV - mailmaster: PONV - mailmaster Female Yes 07/31/24 11:35 HX of Motion [...] 07/10/24 13:45 Respiratory Assessment Respiratory Assessment - mailmaster: Respiratory Tract Infection Hx - mailmaster Hx Respiratory Tract Infection No 07/31/24 11:35 STOP Sleep Apnea STOP Sleep Apnea - mailmaster: STOP Sleep Apnea - mailmaster Hx Hypertension Yes: CONTROLLED WITH MED 07/31/24 [...] Tobacco Use History Tobacco Use History - mailmaster: Tobacco Use History - mailmaster Tobacco Use Smoking Status Never smoker 07/31/24 11:35 Hx Tobacco Use No 07/31/24 11:35 Years Smoking Packs Smoked per Day Smoking Cessation Date was within the last 15 years Hx Smoking Cessation Date Hx Smoking Cessation Counseling Hematologic Medial History Hematologic Hx - mailmaster: Hematologic 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 Normal [facility] Activated partial thrombopla stin time (aPTT) in platelet poor plasma by coagulation aOrdered By: Dago Emery on 07-31-2024 aPTT Coag (PPP) [Time] 26.1 s 24.1-36.2 [facility] Albumin, Serumon 07-31-2024 Albumin [Mass/Vol] 3.9 g/dL Normal 3.4-4.8 [facility] Comment on above: Performed By: #### M 100.651, L501.1800 #### [facility] Laboratory [address] [place], [address] Bilirubin, totalOrdered By: Dago Emery on 07-31-2024 Bilirubin [Mass/Vol] 0.42 mg/dL 0.00-1.30 [facility] Comprehensive Metabolic Prof ilon 07-31-2024 Albumin [Mass/Vol] 4.0 g/dL Normal 3.4-4.8 [facility] Comment on above: Performed By: #### L 100.0100, L500.4050 #### [facility] Laboratory [address] [place], [address] Albumin/Globulin [Mass ratio] 1.6 {ratio} Normal 0.9-2.4 [facility] Comment on above: Performed By: #### L 100.0100, L500.4050 #### [facility] Laboratory [address] [place], [address] ALK PHOS 92 U/L Normal 35-104 [facility] Comment on above: Performed By: #### L 100.0100, L500.4050 #### [facility] Laboratory [address] [place], [address] ALT [Catalytic activity/Vol] 14 U/L Normal <=34 [facility] Comment on above: Performed By: #### L 100.0100, L500.4050 #### [facility] Laboratory [address] [place], [address] AST [Catalytic activity/Vol] 22 U/L Normal <=31 [facility] Comment on above: Performed By: #### L 100.0100, L500.4050 #### [facility] Laboratory [address] [place], [address] Bilirubin [Mass/Vol] 0.42 mg/dL Normal 0.00-1.30 [facility] Comment on above: Performed By: #### L 100.0100, L500.4050 #### [facility] Laboratory [address] [place], [address] BUN/CRE 19.1 RATIO Normal 10-20 [facility] Comment on above: Performed By: #### L 100.0100, L500.4050 #### [facility] Laboratory [address] [place], [address] Calcium [Mass/Vol] 9.5 mg/dL Normal 7.6-11.0 [facility] Comment on above: Performed By: #### L 100.0100, L500.4050 #### [facility] Laboratory [address] [place], [address] Chloride [Moles/Vol] 105 mmol/L Normal 98-108 [facility] Comment on above: Performed By: #### L 100.0100, L500.4050 #### [facility] Laboratory [address] [place], [address] CO2 [Moles/Vol] 23.0 mmol/L Normal 21.0-32.0 [facility] Comment on above: Performed By: #### L 100.0100, L500.4050 #### [facility] Laboratory [address] [place], [address] Creatinine [Mass/Vol] 0.97 mg/dL Normal 0.70-1.20 [facility] Comment on above: Performed By: #### L 100.0100, L500.4050 #### [facility] Laboratory [address] [place], [address] GAP 12 Normal 5-15 [facility] Comment on above: Performed By: #### L 100.0100, L500.4050 #### [facility] Laboratory [address] [place], [address] GFR/1.73 sq M.predicted among non-blacks MDRD (S/P/Bld) [Vol rate/Area] 59 mL/min/{1.73_m2} Low >60 [facility] Comment on above: Result Comment: mL/m in/1.73m2 CKD-EPI Creatinine Equation (2020) Performed By: #### L 100.0100, L500.4050 #### [facility] Laboratory [address] [place], [address] Globulin (S) [Mass/Vol] 2.4 g/dL Normal 2.2-4.2 [facility] Comment on above: Performed By: #### L 100.0100, L500.4050 #### [facility] Laboratory [address] [place], [address] Glucose [Mass/Vol] 127 mg/dL High 70-99 [facility] Comment on above: Performed By: #### L 100.0100, L500.4050 #### [facility] Laboratory [address] [place], [address] Potassium [Moles/Vol] 4.5 mmol/L Normal 3.3-5.1 [facility] Comment on above: Performed By: #### L 100.0100, L500.4050 #### [facility] Laboratory [address] [place], [address] Sodium [Moles/Vol] 139 mmol/L Normal 133-145 [facility] Comment on above: Performed By: #### L 100.0100, L500.4050 #### [facility] Laboratory [address] [place], [address] T PROT 6.4 g/dL Normal 5.9-8.4 [facility] Comment on above: Performed By: #### L 100.0100, L500.4050 #### [facility] Laboratory [address] [place], [address] Urea nitrogen [Mass/Vol] 19 mg/dL Normal 4-19 [facility] Comment on above: Performed By: #### L 100.0100, L500.4050 #### [facility] Laboratory [address] [place], [address] International normalized rat io (INR) calculationOrdered By: Dago Emery on 07-31-2024 INR Coag (Bld) [Relative time] 0.9 {INR} [facility] Laboratory - Chemistry and C hemistry - challengeOrdered By: Dago Emery on 07-31-2024 AST [Catalytic activity/Vol] 22 U/L <32 [facility] MRSA screenOrdered By: Az Rodriguez on 07-31-2024 MRSA DNA JANY+probe Ql (Unsp spec) [facility] Magnesiumon 07-31-2024 Magnesium [Mass/Vol] 2.3 mg/dL High 1.5-2.2 [facility] Comment on above: Performed By: #### L 500.4050, L506.1000, L100.0100, L501.9520 #### [facility] Laboratory [address] [place], [address] Magnesium measurement (mass/ volume)Ordered By: Jg Pandey on 07-31-2024 Magnesium (Unsp spec) [Mass/Vol] 2.3 mg/dL High 1.5-2.2 [facility] Partial Thromboplast Timeon 07-31-2024 aPTT Coag (Bld) [Time] 26.1 s Normal 24.1-36.2 [facility] Comment on above: Performed By: #### L 100.0100, L500.4050 #### [facility] Laboratory [address] [place], [address] Prothrombin Time w/INRon INR Coag (PPP) [Relative time] 0.9 {INR} Normal [facility] Comment on above: Performed By: #### L 100.0100, L500.4050 #### [facility] Laboratory [address] [place], [place], [address] PT Coag (PPP) [Time] 12.6 s Normal 11.7-14.9 [facility] Comment on above: Performed By: #### L 100.0100, L500.4050 #### [facility] Laboratory [address] [place], [address] Prothrombin timeOrdered By: Dago Emery on 07-31-2024 PT Coag (PPP) [Time] 12.6 s 11.7-14.9 [facility] Serum globulin measurementOr dered By: Dago Emery on 07-31-2024 Globulin (S) [Mass/Vol] 2.4 g/dL 2.2-4.2 [facility] Serum or plasma alanine bey otransferase (ALT) measurementOrdered By: Dago Emery on 07-31-2024 ALT [Catalytic activity/Vol] 14 U/L <35 [facility] Serum or plasma albumin niels urement (mass/volume)Ordered By: Dago Emery on 07-31-2024 Albumin [Mass/Vol] 4.0 g/dL 3.4-4.8 [facility] Serum or plasma albumin/glob ulin mass ratioOrdered By: Dago Emery on 07-31-2024 Albumin/Globulin [Mass ratio] 1.6 {ratio} 0.9-2.4 [facility] Serum or plasma alkaline victor hugo sphatase measurementOrdered By: Dago Emery on 07-31-2024 ALP [Catalytic activity/Vol] 92 U/L 35-104 [facility] TSH DL <= 0.005 mIU/L QnOrde red By: Jg Pandey on 07-31-2024 TSH Qn 1.470 uIU/mL 0.300-4.20 0 [facility] Thyroid Stim Hormone (TSH)on 07-31-2024 TSH 1.470 uIU/mL Normal 0.300-4.20 0 [facility] Comment on above: Performed By: #### L 500.4050, L506.1000, L100.0100, L501.9520 #### [facility] Laboratory [address] [place], [address] Total proteinOrdered By: Dago Emery on 07-31-2024 Protein [Mass/Vol] 6.4 g/dL 5.9-8.4 [facility] Vitamin D,25 Hydroxyon 07-31 Vitamin D 25-OH 18.9 ng/mL Low 30-100 [facility] Comment on above: Result Comment: [place] min D Status Deficiency: <20 ng/mL (50nmol/L) Insufficiency: 20-30 ng/mL (50-75 nmol/L) Sufficiency: 30-100 ng/mL (75-250 nmol/L) Toxicity: >100 ng/mL (>250 nmol/L) Performed By: #### L 100.0100, L500.4050 #### [facility] Laboratory [address] [place], [address] Absolute lymphocyte countOrd ered By: Umang Pate on 07-10-2024 Lymphocytes Auto (Unsp spec) [#/Vol] 1.19 10*3/uL 0.83-4.51 [facility] Absolute neutrophil countOrd ered By: Umang Pate on 07-10-2024 Neutrophils (Bld) [#/Vol] 3.7 10*3/uL 2.0-7.7 [facility] Anion gap in Serum or Plasma Ordered By: Umang Pate on 07-10-2024 Anion gap [Moles/Vol] 10 mmol/L 5-15 [facility] Automated lymphocyte count a s percentage of total leukocytesOrdered By: Umang Pate on 07-10-2024 Lymphocytes/100 WBC Auto (Unsp spec) 22.0 % - [facility] BUN/creatinine ratioOrdered By: Umang Pate on 07-10-2024 Urea nitrogen/Creatinine [Mass ratio] 20.2 mg/mg High 10-20 [facility] Basophil percentageOrdered B y: Umang Pate on 07-10-2024 Basophils/100 WBC (Bld) 0.4 % 0-1 [facility] Bilirubin, totalOrdered By: Umang Pate on 07-10-2024 Bilirubin [Mass/Vol] 0.40 mg/dL 0.00-1.30 [facility] CBC W/Diff, Automatedon 06-21 Absolute Lymph 1.19 X10 3/uL Normal 0.83-4.51 [facility] Comment on above: Performed By: #### L 500.4050, L506.1000, L100.0100, L501.9520 #### [facility] Laboratory [address] [place], [address] Absolute Neut 3.7 X10 3/uL Normal 2.0-7.7 [facility] Comment on above: Performed By: #### L 500.4050, L506.1000, L100.0100, L501.9520 #### [facility] Laboratory [address] [place], [address] Basophils/100 WBC (Bld) 0.4 % Normal 0-1 [facility] Comment on above: Performed By: #### L 500.4050, L506.1000, L100.0100, L501.9520 #### [facility] Laboratory [address] [place], [address] Eosinophils/100 WBC (Bld) 1.3 % Normal 0-5 [facility] Comment on above: Performed By: #### L 500.4050, L506.1000, L100.0100, L501.9520 #### [facility] Laboratory [address] [place], [address] Erythrocyte distribution width (RBC) [Ratio] 14.9 % High 11.6-14.6 [facility] Comment on above: Performed By: #### L 500.4050, L506.1000, L100.0100, L501.9520 #### [facility] Laboratory [address] [place], [address] Hematocrit (Bld) [Volume fraction] 38.9 % Normal 37-47 [facility] Comment on above: Performed By: #### L 500.4050, L506.1000, L100.0100, L501.9520 #### [facility] Laboratory [address] [place], [address] Hemoglobin (Bld) [Mass/Vol] 13.0 g/dL Normal 12.0-15.0 [facility] Comment on above: Performed By: #### L 500.4050, L506.1000, L100.0100, L501.9520 #### [facility] Laboratory [address] [place], [address] IG% 0.400 Normal 0.0-0.9 [facility] Comment on above: Result Comment: IG% - Immature Granulocytes (promyelocytes, myelocytes and metamyelocytes) > 1% indicates that a LEFT SHIFT is Present. Performed By: #### L 500.4050, L506.1000, L100.0100, L501.9520 #### [facility] Laboratory [address] [place], [address] Lymphocytes/100 WBC (Bld) 22.0 % Normal 19-41 [facility] Comment on above: Performed By: #### L 500.4050, L506.1000, L100.0100, L501.9520 #### [facility] Laboratory [address] [place], [address] MCH (RBC) [Entitic mass] 36.6 pg High 27.0-32.0 [facility] Comment on above: Performed By: #### L 500.4050, L506.1000, L100.0100, L501.9520 #### [facility] Laboratory [address] [place], [address] MCHC (RBC) [Mass/Vol] 33.4 g/dL Normal 32-36 [facility] Comment on above: Performed By: #### L 500.4050, L506.1000, L100.0100, L501.9520 #### [facility] Laboratory [address] [place], [address] MCV (RBC) [Entitic vol] 109.6 fL High 81-99 [facility] Comment on above: Performed By: #### L 500.4050, L506.1000, L100.0100, L501.9520 #### [facility] Laboratory [address] [place], [address] Monocytes/100 WBC (Bld) 8.5 % Normal 0-10 [facility] Comment on above: Performed By: #### L 500.4050, L506.1000, L100.0100, L501.9520 #### [facility] Laboratory [address] [place], [address] Neutrophils/100 WBC (Bld) 67.4 % Normal 47-70 [facility] Comment on above: Performed By: #### L 500.4050, L506.1000, L100.0100, L501.9520 #### [facility] Laboratory [address] [place], [address] Nucleated RBC (Bld) [#/Vol] 0 10*3/uL Normal 0-5 [facility] Comment on above: Performed By: #### L 500.4050, L506.1000, L100.0100, L501.9520 #### [facility] Laboratory [address] [place], [address] Platelet mean volume (Bld) [Entitic vol] 10.9 fL Normal 6.2-12.0 [facility] Comment on above: Performed By: #### L 500.4050, L506.1000, L100.0100, L501.9520 #### [facility] Laboratory [address] [place], [address] Platelets (Bld) [#/Vol] 252 10*3/uL Normal 150-450 [facility] Comment on above: Performed By: #### L 500.4050, L506.1000, L100.0100, L501.9520 #### [facility] Laboratory [address] [place], [address] RBC (Bld) [#/Vol] 3.55 10*6/uL Low 4.2-5.4 [facility] Comment on above: Performed By: #### L 500.4050, L506.1000, L100.0100, L501.9520 #### [facility] Laboratory [address] [place], [address] RDW SD 60.0 fl High 35.1-43.9 [facility] Comment on above: Performed By: #### L 500.4050, L506.1000, L100.0100, L501.9520 #### [facility] Laboratory [address] [place], [address] WBC (Bld) [#/Vol] 5.4 10*3/uL Normal 4.4-11.0 [facility] Comment on above: Performed By: #### L 500.4050, L506.1000, L100.0100, L501.9520 #### [facility] Laboratory [address] [place], [address] Carbon dioxide, total [Moles /volume] in Central venous bloodOrdered By: Umang Pate on 07-10-2024 CO2 [Moles/Vol] 23.6 mmol/L 21.0-32.0 [facility] Chloride assayOrdered By: Lara Pate on 07-10-2024 Chloride [Moles/Vol] 105 mmol/L 98-108 [facility] Comprehensive Metabolic Prof ilon 07-10-2024 Albumin [Mass/Vol] 4.0 g/dL Normal 3.4-4.8 [facility] Comment on above: Performed By: #### L 500.4050, L506.1000, L100.0100, L501.9520 #### [facility] Laboratory [address] [place], [address] Albumin/Globulin [Mass ratio] 1.4 {ratio} Normal 0.9-2.4 [facility] Comment on above: Performed By: #### L 500.4050, L506.1000, L100.0100, L501.9520 #### [facility] Laboratory [address] [place], [address] ALK PHOS 90 U/L Normal 35-104 [facility] Comment on above: Performed By: #### L 500.4050, L506.1000, L100.0100, L501.9520 #### [facility] [address] [place], [address] ALT [Catalytic activity/Vol] 14 U/L Normal <=34 [facility] Comment on above: Performed By: #### L 500.4050, L506.1000, L100.0100, L501.9520 #### [facility] [address] [place], [address] AST [Catalytic activity/Vol] 22 U/L Normal <=31 [facility] Comment on above: Performed By: #### L 500.4050, L506.1000, L100.0100, L501.9520 #### [facility] [address] [place], [address] Bilirubin [Mass/Vol] 0.40 mg/dL Normal 0.00-1.30 [facility] Comment on above: Performed By: #### L 500.4050, L506.1000, L100.0100, L501.9520 #### [facility] [address] [place], [address] BUN/CRE 20.2 RATIO High 10-20 [facility] Comment on above: Performed By: #### L 500.4050, L506.1000, L100.0100, L501.9520 #### [facility] [address] [place], [address] Calcium [Mass/Vol] 9.3 mg/dL Normal 7.6-11.0 [facility] Comment on above: Performed By: #### L 500.4050, L506.1000, L100.0100, L501.9520 #### [facility] [address] [place], [address] Chloride [Moles/Vol] 105 mmol/L Normal 98-108 [facility] Comment on above: Performed By: #### L 500.4050, L506.1000, L100.0100, L501.9520 #### [facility] [address] [place], [address] CO2 [Moles/Vol] 23.6 mmol/L Normal 21.0-32.0 [facility] Comment on above: Performed By: #### L 500.4050, L506.1000, L100.0100, L501.9520 #### [facility] [address] [place], [address] Creatinine [Mass/Vol] 0.97 mg/dL Normal 0.70-1.20 [facility] Comment on above: Performed By: #### L 500.4050, L506.1000, L100.0100, L501.9520 #### [facility] [address] [place], [address] ECRCL 50.94 ml/min Normal 50-250 [facility] Comment on above: Performed By: #### L 500.4050, L506.1000, L100.0100, L501.9520 #### [facility] [address] [place], [address] GAP 10 Normal 5-15 [facility] Comment on above: Performed By: #### L 500.4050, L506.1000, L100.0100, L501.9520 #### [facility] [address] [place], [address] GFR/1.73 sq M.predicted among non-blacks MDRD (S/P/Bld) [Vol rate/Area] 59 mL/min/{1.73_m2} Low >60 [facility] Comment on above: Result Comment: mL/m in/1.73m2 CKD-EPI Creatinine Equation (2020) Performed By: #### L 500.4050, L506.1000, L100.0100, L501.9520 #### [facility] [address] [place], [address] Globulin (S) [Mass/Vol] 2.9 g/dL Normal 2.2-4.2 [facility] Comment on above: Performed By: #### L 500.4050, L506.1000, L100.0100, L501.9520 #### [facility] [address] [place], [address] Glucose [Mass/Vol] 112 mg/dL High 70-99 [facility] Comment on above: Performed By: #### L 500.4050, L506.1000, L100.0100, L501.9520 #### [facility] [address] [place], [address] Potassium [Moles/Vol] 4.0 mmol/L Normal 3.3-5.1 [facility] Comment on above: Performed By: #### L 500.4050, L506.1000, L100.0100, L501.9520 #### [facility] [address] [place], [address] Sodium [Moles/Vol] 139 mmol/L Normal 133-145 [facility] Comment on above: Performed By: #### L 500.4050, L506.1000, L100.0100, L501.9520 #### [facility] [address] [place], [address] T PROT 6.9 g/dL Normal 5.9-8.4 [facility] Comment on above: Performed By: #### L 500.4050, L506.1000, L100.0100, L501.9520 #### [facility] [address] [place], [address] Urea nitrogen [Mass/Vol] 20 mg/dL High 4-19 [facility] Comment on above: Performed By: #### L 500.4050, L506.1000, L100.0100, L501.9520 #### [facility] [address] [place], [address] Eosinophil percentageOrdered By: Umang Pate on 07-10-2024 Eosinophils/100 WBC (Bld) 1.3 % 0-5 [facility] Erythrocyte distribution wid th ratioOrdered By: [facility] on 07-10-2024 Erythrocyte distribution width (RBC) [Ratio] 14.9 % High 11.6-14.6 [facility] Erythrocyte distribution wid th standard deviationOrdered By: Umang Pate on 07-10-2024 Erythrocyte distribution width (RBC) [Ratio] 60.0 fl High 35.1-43.9 [facility] Glomerular filtration rate ( GFR) estimation/1.73 sq m using serum, plasma, or whole bOrdered By: Umang Pate on 07-10-2024 GFR/1.73 sq M.predicted among non-blacks MDRD (S/P/Bld) [Vol rate/Area] 59 mL/min/{1.73_m2} Low >60 [facility] Comment on above: mL/min/1.73m2 CKD-EP I Creatinine Equation (2020) Hematocrit Auto (Bld) [Volum e fraction]Ordered By: Umang Pate on 07-10-2024 Hematocrit (Bld) [Volume fraction] 38.9 % 37-47 [facility] Hemoglobin measurementOrdere d By: Umang Pate on 07-10-2024 Hemoglobin (Bld) [Mass/Vol] 13.0 g/dL 12.0-15.0 [facility] Immature granulocytes/100 WB C Auto (Bld)Ordered By: Umang Pate on 07-10-2024 Immature granulocytes/100 WBC (Bld) 0.400 % 0.0-0.9 [facility] Comment on above: IG% - Immature Granu locytes (promyelocytes, myelocytes and metamyelocytes) > 1% indicates that a LEFT SHIFT is Present. Laboratory - Chemistry and C hemistry - challengeOrdered By: Umang Pate on 07-10-2024 AST [Catalytic activity/Vol] 22 U/L <32 [facility] MCV (mean corpuscular volume ) determinationOrdered By: [facility] on 07-10-2024 MCV (RBC) [Entitic vol] 109.6 fL High 81-99 [facility] Mean corpuscular hemoglobin (MCH) determinationOrdered By: [facility] on 07-10-2024 MCH (RBC) [Entitic mass] 36.6 pg High 27.0-32.0 [facility] Mean corpuscular hemoglobin concentration (MCHC) determinationOrdered By: Umang Pate on 07-10-2024 MCHC (RBC) [Mass/Vol] 33.4 g/dL 32-36 [facility] Mean platelet volume determi nationOrdered By: Umang Pate on 07-10-2024 Platelet mean volume (Bld) [Entitic vol] 10.9 fL 6.2-12.0 [facility] Monocyte percentageOrdered B y: Umang Pate on 07-10-2024 Monocytes/100 WBC (Bld) 8.5 % 0-10 [facility] Neutrophil percentageOrdered By: [facility] on 07-10-2024 Neutrophils/100 WBC (Bld) 67.4 % 47-70 [facility] Nucleated red blood cell per centageOrdered By: [facility] on 07-10-2024 Nucleated RBC/100 WBC (Bld) [Ratio] 0 % 0-5 [facility] Oncology Visit Reporton 06-21 Oncology Visit Report [facility] [place] [address] OFFICE VISIT Date of Service: 07/10/24 1322 MR#: [id number] Acct: [id number] Name: BERNICE JUAN Rep #: [id number] : 1945 From: Carolyn Ruvalcaba NP [employer] -C Age/Sex: 78/F Location: [facility] Status: Signed HPI Subjective Date of Service [...] be pursuing left knee replacement in August. [facility] Medical History Wears glasses Post-menopausal Depression Anxiety [...] never substance use type: does not use justice/christianity: Judaism seatbelt use: always do you feel safe [...] 20 mg PO DAILY reflux #0 tabs 0710/1107/10/24 Rx aspirin 81 mg chewable tablet 81 mg PO BID@0800,2000 7 days #14 10/09/22 07/10/24 Rx tabs atenolol 50 mg tablet 50 mg PO DAILY@0800 30 days #30 07/10/24 Rx tabs ondansetron 4 mg disintegrating 8 mg (2 x 4 mg) PO Q8H PRN PRN 07/10/24 Rx tablet NAUSEA 30 days #90 tabs sennosides 8.6 mg-docusate sodium 2 tab PO BID@0800,2000 30 days 07/10/24 Rx 50 mg tablet [...] Bilirubin 0. (more content not included)... Normal [facility] Platelet countOrdered By: Lara Pate on 07-10-2024 Platelets (Bld) [#/Vol] 252 10*3/uL 150-450 [facility] Potassium measurement (mass/ volume)Ordered By: Umang Pate on 07-10-2024 Potassium (Unsp spec) [Mass/Vol] 4.0 mmol/L 3.3-5.1 [facility] RBC Auto (Bld) [#/Vol]Ordere d By: Umang Pate on 07-10-2024 RBC (Bld) [#/Vol] 3.55 10*6/uL Low 4.2-5.4 [facility] Serum creatinine measurement (mass/volume)Ordered By: Umang Pate on 07-10-2024 Creatinine [Mass/Vol] 0.97 mg/dL 0.70-1.20 [facility] Serum globulin measurementOr dered By: Umang Pate on 07-10-2024 Globulin (S) [Mass/Vol] 2.9 g/dL 2.2-4.2 [facility] Serum glucose measurement (m ass/volume)Ordered By: Umang Pate on 07-10-2024 Glucose [Mass/Vol] 112 mg/dL High 70-99 [facility] Serum or plasma alanine bey otransferase (ALT) measurementOrdered By: Umang Pate on 07-10-2024 ALT [Catalytic activity/Vol] 14 U/L <35 [facility] Serum or plasma albumin niels urement (mass/volume)Ordered By: Umang Pate on 07-10-2024 Albumin [Mass/Vol] 4.0 g/dL 3.4-4.8 [facility] Serum or plasma albumin/glob ulin mass ratioOrdered By: Umang Pate on 07-10-2024 Albumin/Globulin [Mass ratio] 1.4 {ratio} 0.9-2.4 [facility] Serum or plasma alkaline victor hugo sphatase measurementOrdered By: Umang Pate on 07-10-2024 ALP [Catalytic activity/Vol] 90 U/L 35-104 [facility] Serum or plasma calcium niels urement (mass/volume)Ordered By: Umang Pate on 07-10-2024 Calcium [Mass/Vol] 9.3 mg/dL 7.6-11.0 [facility] Serum or plasma urea nitroge n measurement (mass/volume)Ordered By: Umang Pate on 07-10-2024 Urea nitrogen [Mass/Vol] 20 mg/dL High 4-19 [facility] Sodium levelOrdered By: Aram Pate on 07-10-2024 Sodium [Moles/Vol] 139 mmol/L 133-145 [facility] Total proteinOrdered By: Seng Pate on 07-10-2024 Protein [Mass/Vol] 6.9 g/dL 5.9-8.4 [facility] White blood cell (WBC) count Ordered By: Umang Pate on 07-10-2024 WBC (Bld) [#/Vol] 5.4 10*3/uL 4.4-11.0 [facility] CBC W/Diff, Automatedon 12-0 Absolute Lymph 1.45 X10 3/uL Normal 0.83-4.51 [facility] Comment on above: Performed By: #### L 500.4050, L506.1000, L100.0100, L501.9520 #### [facility] [address] [place], [address] Absolute Neut 5.9 X10 3/uL Normal 2.0-7.7 [facility] Comment on above: Performed By: #### L 500.4050, L506.1000, L100.0100, L501.9520 #### [facility] [address] [place], [address] Basophils/100 WBC (Bld) 0.1 % Normal 0-1 [facility] Comment on above: Performed By: #### L 500.4050, L506.1000, L100.0100, L501.9520 #### [facility] [address] [place], [address] Eosinophils/100 WBC (Bld) 0.9 % Normal 0-5 [facility] Comment on above: Performed By: #### L 500.4050, L506.1000, L100.0100, L501.9520 #### [facility] [address] [place], [address] Erythrocyte distribution width (RBC) [Ratio] 14.6 % Normal 11.6-14.6 [facility] Comment on above: Performed By: #### L 500.4050, L506.1000, L100.0100, L501.9520 #### [facility] [address] [place], [address] Hematocrit (Bld) [Volume fraction] 40.3 % Normal 37-47 [facility] Comment on above: Performed By: #### L 500.4050, L506.1000, L100.0100, L501.9520 #### [facility] [address] [place], [address] Hemoglobin (Bld) [Mass/Vol] 13.3 g/dL Normal 12.0-15.0 [facility] Comment on above: Performed By: #### L 500.4050, L506.1000, L100.0100, L501.9520 #### [facility] [address] [place], [address] IG% 0.500 Normal 0.0-0.9 [facility] Comment on above: Result Comment: IG% - Immature Granulocytes (promyelocytes, myelocytes and metamyelocytes) > 1% indicates that a LEFT SHIFT is Present. Performed By: #### L 500.4050, L506.1000, L100.0100, L501.9520 #### [facility] [address] [place], [address] Lymphocytes/100 WBC (Bld) 17.7 % Low 19-41 [facility] Comment on above: Performed By: #### L 500.4050, L506.1000, L100.0100, L501.9520 #### [facility] [address] [place], [address] MCH (RBC) [Entitic mass] 36.2 pg High 27.0-32.0 [facility] Comment on above: Performed By: #### L 500.4050, L506.1000, L100.0100, L501.9520 #### [facility] [address] [place], [address] MCHC (RBC) [Mass/Vol] 33.0 g/dL Normal 32-36 [facility] Comment on above: Performed By: #### L 500.4050, L506.1000, L100.0100, L501.9520 #### [facility] [address] [place], [address] MCV (RBC) [Entitic vol] 109.8 fL High 81-99 [facility] Comment on above: Performed By: #### L 500.4050, L506.1000, L100.0100, L501.9520 #### [facility] [address] [place], [address] Monocytes/100 WBC (Bld) 8.1 % Normal 0-10 [facility] Comment on above: Performed By: #### L 500.4050, L506.1000, L100.0100, L501.9520 #### [facility] [address] [place], [address] Neutrophils/100 WBC (Bld) 72.7 % High 47-70 [facility] Comment on above: Performed By: #### L 500.4050, L506.1000, L100.0100, L501.9520 #### [facility] [address] [place], [address] Nucleated RBC (Bld) [#/Vol] 0 10*3/uL Normal 0-5 [facility] Comment on above: Performed By: #### L 500.4050, L506.1000, L100.0100, L501.9520 #### [facility] [address] [place], [address] Platelet mean volume (Bld) [Entitic vol] 10.6 fL Normal 6.2-12.0 [facility] Comment on above: Performed By: #### L 500.4050, L506.1000, L100.0100, L501.9520 #### [facility] [address] [place], [address] Platelets (Bld) [#/Vol] 300 10*3/uL Normal 150-450 [facility] Comment on above: Performed By: #### L 500.4050, L506.1000, L100.0100, L501.9520 #### [facility] [address] [place], [address] RBC (Bld) [#/Vol] 3.67 10*6/uL Low 4.2-5.4 [facility] Comment on above: Performed By: #### L 500.4050, L506.1000, L100.0100, L501.9520 #### [facility] [address] [place], [address] RDW SD 58.3 fl High 35.1-43.9 [facility] Comment on above: Performed By: #### L 500.4050, L506.1000, L100.0100, L501.9520 #### [facility] [address] [place], [address] WBC (Bld) [#/Vol] 8.2 10*3/uL Normal 4.4-11.0 [facility] Comment on above: Performed By: #### L 500.4050, L506.1000, L100.0100, L501.9520 #### [facility] [address] [place], [address] Comprehensive Metabolic [facility] ilon 02-22-2024 Albumin [Mass/Vol] 3.4 g/dL Normal 3.2-5.0 [facility] Comment on above: Performed By: #### L 500.4050, L506.1000, L100.0100, L501.9520 #### [facility] [address] [place], [address] Albumin/Globulin [Mass ratio] 1.0 {ratio} Normal 0.9-2.4 [facility] Comment on above: Performed By: #### L 500.4050, L506.1000, L100.0100, L501.9520 #### [facility] [address] [place], [address] ALK P 85 U/L Normal 45-117 [facility] Comment on above: Performed By: #### L 500.4050, L506.1000, L100.0100, L501.9520 #### [facility] [address] [place], [address] ALT [Catalytic activity/Vol] 29 U/L Normal 13-56 [facility] Comment on above: Performed By: #### L 500.4050, L506.1000, L100.0100, L501.9520 #### [facility] [address] [place], [address] AST [Catalytic activity/Vol] 25 U/L Normal 15-37 [facility] Comment on above: Result Comment: Mode rate Hemolysis, Result may be falsely increased. Performed By: #### L 500.4050, L506.1000, L100.0100, L501.9520 #### [facility] [address] [place], [address] Bilirubin [Mass/Vol] 0.70 mg/dL Normal 0.20-1.00 [facility] Comment on above: Result Comment: For patients on eltrombopag therapy, use of Dimension [place] TBIL is not recommended. Performed By: #### L 500.4050, L506.1000, L100.0100, L501.9520 #### [facility] [address] [place], [address] BUN/CRE 22.5 RATIO High 10-20 [facility] Comment on above: Performed By: #### L 500.4050, L506.1000, L100.0100, L501.9520 #### [facility] [address] [place], [address] CA,Total 8.9 mg/dL Normal 8.5-10.1 [facility] Comment on above: Performed By: #### L 500.4050, L506.1000, L100.0100, L501.9520 #### [facility] [address] [place], [address] Chloride [Moles/Vol] 109 mmol/L High 98-107 [facility] Comment on above: Performed By: #### L 500.4050, L506.1000, L100.0100, L501.9520 #### [facility] [address] [place], [address] CO2 [Moles/Vol] 27.0 mmol/L Normal 21.0-32.0 [facility] Comment on above: Performed By: #### L 500.4050, L506.1000, L100.0100, L501.9520 #### [facility] [address] [place], [address] Creatinine [Mass/Vol] 0.94 mg/dL Normal 0.55-1.02 [facility] Comment on above: Result Comment: The validity of the calculated GFR GFRAA in patients over 70 years has not been determined. Clinical correlation is essential. Performed By: #### L 500.4050, L506.1000, L100.0100, L501.9520 #### [facility] [address] [place], [address] ECRCL 52.57 ml/min Normal [facility] Comment on above: Performed By: #### L 500.4050, L506.1000, L100.0100, L501.9520 #### [facility] [address] [place], [address] EST GFR - AA 74 mL/min Normal >60 [facility] Comment on above: Result Comment: Afri can Omani GFR Calc Performed By: #### L 500.4050, L506.1000, L100.0100, L501.9520 #### [facility] [address] [place], [address] GAP 4 Low 5-15 [facility] Comment on above: Performed By: #### L 500.4050, L506.1000, L100.0100, L501.9520 #### [facility] [address] [place], [address] GFR/1.73 sq M.predicted among non-blacks MDRD (S/P/Bld) [Vol rate/Area] 61 mL/min/{1.73_m2} Normal >60 [facility] Comment on above: Result Comment: Non- GFR Calc Performed By: #### L 500.4050, L506.1000, L100.0100, L501.9520 #### [facility] [address] [place], [address] Globulin (S) [Mass/Vol] 3.5 g/dL Normal 2.2-4.2 [facility] Comment on above: Performed By: #### L 500.4050, L506.1000, L100.0100, L501.9520 #### [facility] [address] [place], [address] Glucose [Mass/Vol] 110 mg/dL High 74-106 [facility] Comment on above: Result Comment: Fast ing Glucose result from 100 to 125 mg/dL suggests IMPAIRED HOMEOSTASIS per A.D.A. criteria. Performed By: #### L 500.4050, L506.1000, L100.0100, L501.9520 #### [facility] [address] [place], [address] Potassium [Moles/Vol] 4.2 mmol/L Normal 3.5-5.1 [facility] Comment on above: Result Comment: Mode rate Hemolysis, Result may be falsely increased. Performed By: #### L 500.4050, L506.1000, L100.0100, L501.9520 #### [facility] [address] [place], [address] Sodium [Moles/Vol] 140 mmol/L Normal 136-145 [facility] Comment on above: Performed By: #### L 500.4050, L506.1000, L100.0100, L501.9520 #### [facility] [address] [place], [address] T PROT 6.9 g/dL Normal 6.4-8.2 [facility] Comment on above: Performed By: #### L 500.4050, L506.1000, L100.0100, L501.9520 #### [facility] [address] [place], [address] Urea nitrogen [Mass/Vol] 21 mg/dL High 7-18 [facility] Comment on above: Performed By: #### L 500.4050, L506.1000, L100.0100, L501.9520 #### [facility] [address] [place], [address] Oncology Visit Reporton Oncology Visit Report [facility] [address] [place] [address] OFFICE VISIT Date of Service: 02/22/24 1408 MR#: [id number] Acct: [id number] Name: BERNICE JUAN Rep #: [id number] : 1945 From: Umang Pate MD Age/Sex: 78/F Location: [facility] Status: Signed HPI Subjective Date of Service [...] positive. Treatment: Hydrea started July 29, 2018 [facility] Medical History Wears glasses Post-menopausal Depression Anxiety [...] never substance use type: does not use justice/christianity: Judaism seatbelt use: always do you feel safe [...] PO DA (more content not included)... Normal [facility] CBC W/Diff, Automatedon 01-20 Absolute Lymph 1.16 X10 3/uL Normal 0.83-4.51 [facility] Comment on above: Performed By: #### L 500.4050, L506.1000, L100.0100, L501.9520 #### [facility] Laboratory [address] [place], [address] Absolute Neut 3.3 X10 3/uL Normal 2.0-7.7 [facility] Comment on above: Performed By: #### L 500.4050, L506.1000, L100.0100, [id number] #### [facility] [address] [place], [address] Basophils/100 WBC (Bld) 0.4 % Normal 0-1 [facility] Comment on above: Performed By: #### L 500.4050, L506.1000, L100.0100, [id number] #### [facility] Laboratory [address] [place], [address] Eosinophils/100 WBC (Bld) 1.0 % Normal 0-5 [facility] Comment on above: Performed By: #### L 500.4050, L506.1000, L100.0100, [id number] #### [facility] [address] [place], [address] Erythrocyte distribution width (RBC) [Ratio] 14.3 % Normal 11.6-14.6 [facility] Comment on above: Performed By: #### L 500.4050, L506.1000, L100.0100, [id number] #### [facility] [address] [place], [address] Hematocrit (Bld) [Volume fraction] 38.3 % Normal 37-47 [facility] Comment on above: Performed By: #### L 500.4050, L506.1000, L100.0100, [id number] #### [facility] [address] [place], [address] Hemoglobin (Bld) [Mass/Vol] 12.8 g/dL Normal 12.0-15.0 [facility] Comment on above: Performed By: #### L 500.4050, L506.1000, L100.0100, [id number] #### [facility] [address] [place], [address] IG% 0.400 Normal 0.0-0.9 [facility] Comment on above: Result Comment: IG% - Immature Granulocytes (promyelocytes, myelocytes and metamyelocytes) > 1% indicates that a LEFT SHIFT is Present. Performed By: #### L 500.4050, L506.1000, L100.0100, L501.9520 #### [facility] [address] [place], [address] Lymphocytes/100 WBC (Bld) 22.9 % Normal 19-41 [facility] Comment on above: Performed By: #### L 500.4050, L506.1000, L100.0100, [id number] #### [facility] [address] [place], [address] MCH (RBC) [Entitic mass] 37.0 pg High 27.0-32.0 [facility] Comment on above: Performed By: #### L 500.4050, L506.1000, L100.0100, [id number] #### [facility] [address] [place], [address] MCHC (RBC) [Mass/Vol] 33.4 g/dL Normal 32-36 [facility] Comment on above: Performed By: #### L 500.4050, L506.1000, L100.0100, [id number] #### [facility] [address] [place], [address] MCV (RBC) [Entitic vol] 110.7 fL High 81-99 [facility] Comment on above: Performed By: #### L 500.4050, L506.1000, L100.0100, [id number] #### [facility] [address] [place], [address] Monocytes/100 WBC (Bld) 9.5 % Normal 0-10 [facility] Comment on above: Performed By: #### L 500.4050, L506.1000, L100.0100, [id number] #### [facility] [address] [place], [address] Neutrophils/100 WBC (Bld) 65.8 % Normal 47-70 [facility] Comment on above: Performed By: #### L 500.4050, L506.1000, L100.0100, [id number] #### [facility] [address] [place], [address] Nucleated RBC (Bld) [#/Vol] 0 10*3/uL Normal 0-5 [facility] Comment on above: Performed By: #### L 500.4050, L506.1000, L100.0100, [id number] #### [facility] [address] [place], [address] Platelet mean volume (Bld) [Entitic vol] 11.0 fL Normal 6.2-12.0 [facility] Comment on above: Performed By: #### L 500.4050, L506.1000, L100.0100, [id number] #### [facility] [address] [place], [address] Platelets (Bld) [#/Vol] 292 10*3/uL Normal 150-450 [facility] Comment on above: Performed By: #### L 500.4050, L506.1000, L100.0100, [id number] #### [facility] [address] [place], [address] RBC (Bld) [#/Vol] 3.46 10*6/uL Low 4.2-5.4 [facility] Comment on above: Performed By: #### L 500.4050, L506.1000, L100.0100, [id number] #### [facility] [address] [place], [address] RDW SD 57.3 fl High 35.1-43.9 [facility] Comment on above: Performed By: #### L 500.4050, L506.1000, L100.0100, [id number] #### [facility] [address] [place], [address] WBC (Bld) [#/Vol] 5.1 10*3/uL Normal 4.4-11.0 [facility] Comment on above: Performed By: #### L 500.4050, L506.1000, L100.0100, [id number] #### [facility] [address] [place], [address] Comprehensive Metabolic Prof pato 01-31-2024 Albumin [Mass/Vol] 3.5 g/dL Normal 3.2-5.0 [facility] Comment on above: Performed By: #### L 500.4050, L506.1000, L100.0100, L501.9520 #### [facility] [address] [place], [address] Albumin/Globulin [Mass ratio] 1.0 {ratio} Normal 0.9-2.4 [facility] Comment on above: Performed By: #### L 500.4050, L506.1000, L100.0100, L501.9520 #### [facility] [address] [place], [address] ALK P 96 U/L Normal 45-117 [facility] Comment on above: Performed By: #### L 500.4050, L506.1000, L100.0100, [id number] #### [facility] [address] [place], [address] ALT [Catalytic activity/Vol] 19 U/L Normal 13-56 [facility] Comment on above: Performed By: #### L 500.4050, L506.1000, L100.0100, L501.9520 #### [facility] [address] [place], [address] AST [Catalytic activity/Vol] 33 U/L Normal 15-37 [facility] Comment on above: Result Comment: Mode rate Hemolysis, Result may be falsely increased. Performed By: #### L 500.4050, L506.1000, L100.0100, L501.9520 #### [facility] [address] [place], [address] Bilirubin [Mass/Vol] 0.50 mg/dL Normal 0.20-1.00 [facility] Comment on above: Result Comment: For patients on eltrombopag therapy, use of Dimension [place] TBIL is not recommended. Performed By: #### L 500.4050, L506.1000, L100.0100, L501.9520 #### [facility] [address], [address] BUN/CRE 23.5 RATIO High 10-20 [facility] Comment on above: Performed By: #### L 500.4050, L506.1000, L100.0100, L501.9520 #### [facility] [address] [place], [address] CA,Total 9.1 mg/dL Normal 8.5-10.1 [facility] Comment on above: Performed By: #### L 500.4050, L506.1000, L100.0100, L501.9520 #### [facility] [address] [place], [address] Chloride [Moles/Vol] 109 mmol/L High 98-107 [facility] Comment on above: Performed By: #### L 500.4050, L506.1000, L100.0100, L501.9520 #### [facility] [address] [place], [address] CO2 [Moles/Vol] 24.0 mmol/L Normal 21.0-32.0 [facility] Comment on above: Performed By: #### L 500.4050, L506.1000, L100.0100, L501.9520 #### [facility] [address] [place], [address] Creatinine [Mass/Vol] 0.94 mg/dL Normal 0.55-1.02 [facility] Comment on above: Result Comment: The validity of the calculated GFR GFRAA in patients over 70 years has not been determined. Clinical correlation is essential. Performed By: #### L 500.4050, L506.1000, L100.0100, L501.9520 #### [facility] [address] [place], [address] EST GFR - AA 74 mL/min Normal >60 [facility] Comment on above: Result Comment: Afri can Omani GFR Calc Performed By: #### L 500.4050, L506.1000, L100.0100, L501.9520 #### [facility] [address] [place], [address] GAP 9 Normal 5-15 [facility] Comment on above: Performed By: #### L 500.4050, L506.1000, L100.0100, L501.9520 #### [facility] [address] [place], [address] GFR/1.73 sq M.predicted among non-blacks MDRD (S/P/Bld) [Vol rate/Area] 61 mL/min/{1.73_m2} Normal >60 [facility] Comment on above: Result Comment: Non- GFR Calc Performed By: #### L 500.4050, L506.1000, L100.0100, L501.9520 #### [facility] [address] [place], [address] Globulin (S) [Mass/Vol] 3.6 g/dL Normal 2.2-4.2 [facility] Comment on above: Performed By: #### L 500.4050, L506.1000, L100.0100, L501.9520 #### [facility] [address] [place], [address] Glucose [Mass/Vol] 108 mg/dL High 74-106 [facility] Comment on above: Result Comment: Fast ing Glucose result from 100 to 125 mg/dL suggests IMPAIRED HOMEOSTASIS per A.D.A. criteria. Performed By: #### L 500.4050, L506.1000, L100.0100, L501.9520 #### [facility] [address] [place], [address] Potassium [Moles/Vol] 4.1 mmol/L Normal 3.5-5.1 [facility] Comment on above: Result Comment: Mode rate Hemolysis, Result may be falsely increased. Performed By: #### L 500.4050, L506.1000, L100.0100, L501.9520 #### [facility] [address] [place], [address] Sodium [Moles/Vol] 141 mmol/L Normal 136-145 [facility] Comment on above: Performed By: #### L 500.4050, L506.1000, L100.0100, L501.9520 #### [facility] [address] [place], [address] T PROT 7.1 g/dL Normal 6.4-8.2 [facility] Comment on above: Performed By: #### L 500.4050, L506.1000, L100.0100, L501.9520 #### [facility] [address] [place], [address] Urea nitrogen [Mass/Vol] 22 mg/dL High 7-18 [facility] Comment on above: Performed By: #### L 500.4050, L506.1000, L100.0100, L501.9520 #### [facility] [address] [place], [address] Thyroid Stim Hormone (TSH)on 01-31-2024 TSH 1.630 uIU/mL Normal 0.358-3.74 0 [facility] Comment on above: Performed By: #### L 500.4050, L506.1000, L100.0100, L501.9520 #### [facility] [address] [place], [address] Vitamin D,25 Hydroxyon 01-30 Vitamin D 25-OH 20.8 ng/mL Normal [facility] Comment on above: Result Comment: [place] min D 25(OH) Status Range Deficiency <20 ng/mL (50nmol/L) Insufficiency 20 - 30 ng/mL (50 - 75 nmol/L) Sufficiency 30 - 100 ng/mL (75 - 250 nmol/L) Toxicity >100 ng/mL (>250 nmol/L) Performed By: #### L 500.4050, L506.1000, L100.0100, L501.9520 #### [facility] [address] [place], [address] CBC W/Diff, Automatedon 08 Anisocytosis Ql (Bld) 1+ Normal [facility] Comment on above: Performed By: #### L 100.0100, L500.4050 #### [facility] [address] [place], [address] Comprehensive Metabolic Prof ilon 11-09-2023 Albumin [Mass/Vol] 3.5 g/dL Normal 3.2-5.0 [facility] Comment on above: Performed By: #### L 100.0100, L500.4050 #### [facility] [address] [place], [address] Albumin/Globulin [Mass ratio] 0.9 {ratio} Normal 0.9-2.4 [facility] Comment on above: Performed By: #### L 100.0100, L500.4050 #### [facility] [address] [place], [address] ALK P 98 U/L Normal 45-117 [facility] Comment on above: Performed By: #### L 100.0100, L500.4050 #### [facility] [address] [place], [address] ALT [Catalytic activity/Vol] 19 U/L Normal 13-56 [facility] Comment on above: Performed By: #### L 100.0100, L500.4050 #### [facility] [address] [place], [address] AST [Catalytic activity/Vol] 29 U/L Normal 15-37 [facility] Comment on above: Performed By: #### L 100.0100, L500.4050 #### [facility] [address] [place], [address] Bilirubin [Mass/Vol] 0.50 mg/dL Normal 0.20-1.00 [facility] Comment on above: Result Comment: For patients on eltrombopag therapy, use of Dimension [place] TBIL is not recommended. Performed By: #### L 100.0100, L500.4050 #### [facility] [address] [place], [address] BUN/CRE 18.9 RATIO Normal 10-20 [facility] Comment on above: Performed By: #### L 100.0100, L500.4050 #### [facility] [address] [place], [address] CA,Total 9.2 mg/dL Normal 8.5-10.1 [facility] Comment on above: Performed By: #### L 100.0100, L500.4050 #### [facility] [address] [place], [address] Chloride [Moles/Vol] 108 mmol/L High 98-107 [facility] Comment on above: Performed By: #### L 100.0100, L500.4050 #### [facility] [address] [place], [address] CO2 [Moles/Vol] 25.0 mmol/L Normal 21.0-32.0 [facility] Comment on above: Performed By: #### L 100.0100, L500.4050 #### [facility] [address] [place], [address] Creatinine [Mass/Vol] 1.06 mg/dL High 0.55-1.02 [facility] Comment on above: Result Comment: The validity of the calculated GFR GFRAA in patients over 70 years has not been determined. Clinical correlation is essential. Performed By: #### L 100.0100, L500.4050 #### [facility] [address] [place], [address] ECRCL 46.37 ml/min Normal [facility] Comment on above: Performed By: #### L 100.0100, L500.4050 #### [facility] [address] [place], [address] EST GFR - AA 64 mL/min Normal >60 [facility] Comment on above: Result Comment: Afri can [place] GFR Calc Performed By: #### L 100.0100, L500.4050 #### [facility] [address] [place], [address] GAP 7 Normal 5-15 [facility] Comment on above: Performed By: #### L 100.0100, L500.4050 #### [facility] [address] [place], [address] GFR/1.73 sq M.predicted among non-blacks MDRD (S/P/Bld) [Vol rate/Area] 53 mL/min/{1.73_m2} Low >60 [facility] Comment on above: Result Comment: Non- GFR Calc Performed By: #### L 100.0100, L500.4050 #### [facility] [address] [place], [address] Globulin (S) [Mass/Vol] 3.7 g/dL Normal 2.2-4.2 [facility] Comment on above: Performed By: #### L 100.0100, L500.4050 #### [facility] [address] [place], [address] Glucose [Mass/Vol] 120 mg/dL High 74-106 [facility] Comment on above: Result Comment: Fast ing Glucose result from 100 to 125 mg/dL suggests IMPAIRED HOMEOSTASIS per A.D.A. criteria. Performed By: #### L 100.0100, L500.4050 #### [facility] [address] [place], [address] Potassium [Moles/Vol] 3.7 mmol/L Normal 3.5-5.1 [facility] Comment on above: Performed By: #### L 100.0100, L500.4050 #### [facility] [address] [place], [address] Sodium [Moles/Vol] 140 mmol/L Normal 136-145 [facility] Comment on above: Performed By: #### L 100.0100, L500.4050 #### [facility] [address] [place], [address] T PROT 7.2 g/dL Normal 6.4-8.2 [facility] Comment on above: Performed By: #### L 100.0100, L500.4050 #### [facility] [address] [place], [address] Urea nitrogen [Mass/Vol] 20 mg/dL High 7-18 [facility] Comment on above: Performed By: #### L 100.0100, L500.4050 #### [facility] [address] [place], [address] Laboratory - Hematology and Cell countsOrdered By: Umang Pate on 11-09-2023 Anisocytosis Ql (Bld) 1+ [facility] Oncology Visit Reporton 10-21 Oncology Visit Report [facility] [address] [place] [address] OFFICE VISIT Date of Service: 11/09/23 1351 MR#: [id number] Acct: [id number] Name: BERNICE JUAN Rep #: [id number] : 1945 From: Umang Pate MD Age/Sex: 78/F Location: [facility] Status: Signed HPI Subjective Date of Service [...] positive. Treatment: Hydrea started July 29, 2018 [facility] Medical History Wears glasses Post-menopausal Depression Anxiety [...] never substance use type: does not use justice/christianity: Judaism seatbelt use: always do you feel safe [...] PO REJI (more content not included)... Normal [facility] Serum or plasma thyroid stim ulating hormone (TSH) measurement (units/volume)Ordered By: Umang Pate on 08-05-2023 TSH Qn 1.06 uIU/mL 0.358-3.74 [facility] Absolute lymphocyte countOrd ered By: Dago Emery on 01-25-2023 Lymphocytes Auto (Unsp spec) [#/Vol] 1.06 10*3/uL 0.83-4.51 [facility] Basophil percentageOrdered B y: Dago Emery on 01-25-2023 Basophils/100 WBC (Bld) 0.2 % 0-1 [facility] Bilirubin [Mass/Vol] 0.40 mg/dL 0.20-1.00 [facility] Comment on above: For patients on eltr ombopag therapy, use of Dimension [place] TBIL is not recommended. Chloride [Moles/Vol] 108 mmol/L 98-107 [facility] Eosinophils/100 WBC (Bld) 1.1 % 0-5 [facility] Glucose [Mass/Vol] 116 mg/dL 74-106 [facility] Comment on above: Fasting Glucose resu lt from 100 to 125 mg/dL suggests IMPAIRED HOMEOSTASIS per A.D.A. criteria. Neutrophils (Bld) [#/Vol] 2.8 10*3/uL 2.0-7.7 [facility] Neutrophils/100 WBC (Bld) 64.3 % 47-70 [facility] Potassium [Moles/Vol] 3.6 mmol/L 3.5-5.1 [facility] Protein [Mass/Vol] 7.1 g/dL 6.4-8.2 [facility] Sodium [Moles/Vol] 141 mmol/L 136-145 [facility] WBC (Bld) [#/Vol] 4.4 10*3/uL 4.4-11.0 [facility] Blood erythrocytes count (nu mber/volume)Ordered By: Dago Emery on 01-25-2023 RBC (Bld) [#/Vol] 3.25 10*6/uL 4.2-5.4 [facility] Blood hemoglobin measurement (mass/volume)Ordered By: Dago Emery on 01-25-2023 Hemoglobin (Bld) [Mass/Vol] 11.8 g/dL 12.0-15.0 [facility] Blood lymphocytes/100 leukoc ytesOrdered By: Dago Emery on 01-25-2023 Lymphocytes/100 WBC (Bld) 24.1 % 19-41 [facility] Blood manual differential co mment interpretation (narrative result)Ordered By: Dago Emery on 01-25-2023 Manual differential comment Jack (Bld) [Interp] SCANNED [facility] Blood monocytes/100 leukocyt esOrdered By: Dago Emery on 01-25-2023 Monocytes/100 WBC (Bld) 9.8 % 0-10 [facility] Blood platelet mean volumeOr dered By: Dago Emery on 01-25-2023 Platelet mean volume (Bld) [Entitic vol] 11.2 fL 6.2-12.0 [facility] Determination of erythrocyte mean corpuscular volume (MCV)Ordered By: Dago Emery on 01-25-2023 MCV (RBC) [Entitic vol] 113.8 fL 81-99 [facility] Hematocrit Auto (Bld) [Volum e fraction]Ordered By: Dago Emery on 01-25-2023 Hematocrit (Bld) [Volume fraction] 37.0 % 37-47 [facility] Laboratory - Chemistry and C hemistry - challengeOrdered By: [facility] Rupert on 01-25-2023 ALP [Catalytic activity/Vol] 82 U/L 45-117 [facility] ALT [Catalytic activity/Vol] 15 U/L 13-56 [facility] CO2 [Moles/Vol] 26.0 mmol/L 21.0-32.0 [facility] Globulin (S) [Mass/Vol] 3.8 g/dL 2.2-4.2 [facility] Urea nitrogen/Creatinine [Mass ratio] 18.6 mg/mg 10-20 [facility] Laboratory - Hematology and Cell countsOrdered By: Dago Emery on 01-25-2023 Anisocytosis Ql (Bld) 2+ [facility] Erythrocyte distribution width (RBC) [Entitic vol] 65.5 fL 35.1-43.9 [facility] Erythrocyte distribution width (RBC) [Ratio] 15.7 % 11.6-14.6 [facility] Immature granulocytes/100 WBC (Bld) 0.500 % 0.0-0.9 [facility] Comment on above: IG% - Immature Granu locytes (promyelocytes, myelocytes and metamyelocytes) > 1% indicates that a LEFT SHIFT is Present. MCH (RBC) [Entitic mass] 36.3 pg 27.0-32.0 [facility] Nucleated RBC/100 WBC (Bld) [Ratio] 0 % 0-5 [facility] MCHC Auto (RBC) [Mass/Vol]Or dered By: Dago Emery on 01-25-2023 MCHC (RBC) [Mass/Vol] 31.9 g/dL 32-36 [facility] Macrocytes detectionOrdered By: Dago Emery on 01-25-2023 Macrocytes Ql (Bld) 2+ [facility] No Panel InformationOrdered By: Dago Emery on 01-25-2023 Estimated GFR (MDRD) Amer 67 mL/min >60 [facility] Comment on above: GFR Calc Estimated GFR (MDRD) Non-Af Amer 56 mL/min >60 [facility] Comment on above: Non- GFR Calc Thyroid Stimulating Hormone (TSH) 1.65 uIU/mL 0.358-3.74 [facility] Vitamin D 25-Hydroxy 39.0 ng/mL [facility] Comment on above: Vitamin D 25(OH) Sta tus Range Deficiency <20 ng/mL (50nmol/L) Insufficiency 20 - 30 ng/mL (50 - 75 nmol/L) Sufficiency 30 - 100 ng/mL (75 - 250 nmol/L) Toxicity >100 ng/mL (>250 nmol/L) Platelets bldOrdered By: Dago Emery on 01-25-2023 Platelets (Bld) [#/Vol] 265 10*3/uL 150-450 [facility] Serum or plasma albumin niels urement (mass/volume)Ordered By: Dago Emery on 01-25-2023 Albumin [Mass/Vol] 3.3 g/dL 3.2-5.0 [facility] Serum or plasma albumin/glob ulin mass ratioOrdered By: Dago Emery on 01-25-2023 Albumin/Globulin [Mass ratio] 0.9 {ratio} 0.9-2.4 [facility] Serum or plasma calcium niels urement (mass/volume)Ordered By: Dago Emery on 01-25-2023 Calcium [Mass/Vol] 9.1 mg/dL 8.5-10.1 [facility] Serum or plasma creatinine m easurement (mass/volume)Ordered By: Dago Emery on 01-25-2023 Creatinine [Mass/Vol] 1.02 mg/dL 0.55-1.02 [facility] Comment on above: The validity of the calculated GFR & GFRAA in patients over 70 years has not been determined. Clinical correlation is essential. Serum or plasma urea nitroge n measurement (mass/volume)Ordered By: Dago Emery on 01-25-2023 Urea nitrogen [Mass/Vol] 19 mg/dL 7-18 [facility] Thin prep Papanicolaou smear with manual screeningOrdered By: Dago Emery on 01-25-2023 Thin prep Papanicolaou smear with manual screening 25 U/L 15-37 [facility] Thin prep Papanicolaou smear with manual screening 7 5-15 [facility] Absolute lymphocyte countOrd ered By: Carolyn Ruvalcaba on 11-04-2022 Lymphocytes Auto (Unsp spec) [#/Vol] 1.04 10*3/uL 0.83-4.51 [facility] Basophil percentageOrdered B y: Carolyn Ruvalcaba on 11-04-2022 Basophils/100 WBC (Bld) 0.5 % 0-1 [facility] Bilirubin [Mass/Vol] 0.50 mg/dL 0.20-1.00 [facility] Comment on above: For patients on eltr ombopag therapy, use of Dimension [place] TBIL is not recommended. Chloride [Moles/Vol] 108 mmol/L 98-107 [facility] Eosinophils/100 WBC (Bld) 1.1 % 0-5 [facility] Glucose [Mass/Vol] 127 mg/dL 74-106 [facility] Comment on above: Fasting Glucose resu lt greater than or equal to 126 mg/dL suggests DIABETES MELLITUS per A.D.A. criteria. Neutrophils (Bld) [#/Vol] 4.6 10*3/uL 2.0-7.7 [facility] Neutrophils/100 WBC (Bld) 74.8 % 47-70 [facility] Potassium [Moles/Vol] 3.8 mmol/L 3.5-5.1 [facility] Protein [Mass/Vol] 7.4 g/dL 6.4-8.2 [facility] Sodium [Moles/Vol] 140 mmol/L 136-145 [facility] WBC (Bld) [#/Vol] 6.2 10*3/uL 4.4-11.0 [facility] Blood erythrocytes count (nu mber/volume)Ordered By: Carolyn Ruvalcaba on 11-04-2022 RBC (Bld) [#/Vol] 3.43 10*6/uL 4.2-5.4 [facility] Blood hemoglobin measurement (mass/volume)Ordered By: Carolyn Ruvalcaba on 11-04-2022 Hemoglobin (Bld) [Mass/Vol] 12.0 g/dL 12.0-15.0 [facility] Blood lymphocytes/100 leukoc ytesOrdered By: Carolyn Ruvalcaba on 11-04-2022 Lymphocytes/100 WBC (Bld) 16.8 % 19-41 [facility] Blood monocytes/100 leukocyt esOrdered By: Carolyn Ruvalcaba on 11-04-2022 Monocytes/100 WBC (Bld) 6.5 % 0-10 [facility] Blood platelet mean volumeOr dered By: Carolyn Rvualcaba on 11-04-2022 Platelet mean volume (Bld) [Entitic vol] 10.0 fL 6.2-12.0 [facility] Determination of erythrocyte mean corpuscular volume (MCV)Ordered By: Carolyn Ruvalcaba on 11-04-2022 MCV (RBC) [Entitic vol] 110.5 fL 81-99 [facility] Hematocrit Auto (Bld) [Volum e fraction]Ordered By: Carolyn Ruvalcaba on 11-04-2022 Hematocrit (Bld) [Volume fraction] 37.9 % 37-47 [facility] Laboratory - Chemistry and C hemistry - challengeOrdered By: Carolyn Ruvalcaba on 11-04-2022 ALP [Catalytic activity/Vol] 89 U/L 45-117 [facility] ALT [Catalytic activity/Vol] 18 U/L 13-56 [facility] CO2 [Moles/Vol] 25.0 mmol/L 21.0-32.0 [facility] Globulin (S) [Mass/Vol] 4.1 g/dL 2.2-4.2 [facility] Urea nitrogen/Creatinine [Mass ratio] 14.8 mg/mg 10-20 [facility] Laboratory - Hematology and Cell countsOrdered By: Carolyn Ruvalcaba on 11-04-2022 Erythrocyte distribution width (RBC) [Entitic vol] 62.5 fL 35.1-43.9 [facility] Erythrocyte distribution width (RBC) [Ratio] 15.6 % 11.6-14.6 [facility] Immature granulocytes/100 WBC (Bld) 0.300 % 0.0-0.9 [facility] Comment on above: IG% - Immature Granu locytes (promyelocytes, myelocytes and metamyelocytes) > 1% indicates that a LEFT SHIFT is Present. MCH (RBC) [Entitic mass] 35.0 pg 27.0-32.0 [facility] Nucleated RBC/100 WBC (Bld) [Ratio] 0 % 0-5 [facility] MCHC Auto (RBC) [Mass/Vol]Or dered By: Carolyn Ruvalcaba on 11-04-2022 MCHC (RBC) [Mass/Vol] 31.7 g/dL 32-36 [facility] No Panel InformationOrdered By: Carolyn Ruvalcbaa on 11-04-2022 Estimated Creatinine Clearance Calc 41.46 ml/min [facility] Estimated GFR (MDRD) Amer 73 mL/min >60 [facility] Comment on above: GFR Calc Estimated GFR (MDRD) Non-Af Amer 60 mL/min >60 [facility] Comment on above: Non- GFR Calc Platelets bldOrdered By: Nayan Ruvalcaba on 11-04-2022 Platelets (Bld) [#/Vol] 298 10*3/uL 150-450 [facility] Serum or plasma albumin niels urement (mass/volume)Ordered By: Carolyn Ruvalcaba on 11-04-2022 Albumin [Mass/Vol] 3.3 g/dL 3.2-5.0 [facility] Serum or plasma albumin/glob ulin mass ratioOrdered By: Carolyn Ruvalcaba on 11-04-2022 Albumin/Globulin [Mass ratio] 0.8 {ratio} 0.9-2.4 [facility] Serum or plasma calcium niels urement (mass/volume)Ordered By: Carolyn Ruvalcaba on 11-04-2022 Calcium [Mass/Vol] 9.2 mg/dL 8.5-10.1 [facility] Serum or plasma creatinine m easurement (mass/volume)Ordered By: Carolyn Ruvalcaba on 11-04-2022 Creatinine [Mass/Vol] 0.95 mg/dL 0.55-1.02 [facility] Comment on above: The validity of the calculated GFR & GFRAA in patients over 70 years has not been determined. Clinical correlation is essential. Serum or plasma urea nitroge n measurement (mass/volume)Ordered By: Carolyn Ruvalcaba on 11-04-2022 Urea nitrogen [Mass/Vol] 14 mg/dL 7-18 [facility] Thin prep Papanicolaou smear with manual screeningOrdered By: Carolynmilka Ruvalcaba on 11-04-2022 Thin prep Papanicolaou smear with manual screening 19 U/L 15-37 [facility] Thin prep Papanicolaou smear with manual screening 7 5-15 [facility] Absolute lymphocyte countOrd ered By: Dago Emery on 10-10-2022 Lymphocytes Auto (Unsp spec) [#/Vol] 1.27 10*3/uL 0.83-4.51 [facility] Basophil percentageOrdered B y: Dago Emery on 10-10-2022 Basophils/100 WBC (Bld) 0.4 % 0-1 [facility] Eosinophils/100 WBC (Bld) 5.2 % 0-5 [facility] Neutrophils (Bld) [#/Vol] 3.2 10*3/uL 2.0-7.7 [facility] Neutrophils/100 WBC (Bld) 61.5 % 47-70 [facility] WBC (Bld) [#/Vol] 5.2 10*3/uL 4.4-11.0 [facility] Chloride [Moles/Vol] 109 mmol/L 98-107 [facility] Glucose [Mass/Vol] 101 mg/dL 74-106 [facility] Comment on above: Fasting Glucose resu lt from 100 to 125 mg/dL suggests IMPAIRED HOMEOSTASIS per A.D.A. criteria. Potassium [Moles/Vol] 3.9 mmol/L 3.5-5.1 [facility] Sodium [Moles/Vol] 138 mmol/L 136-145 [facility] Blood erythrocytes count (nu mber/volume)Ordered By: Dago Emery on 10-10-2022 RBC (Bld) [#/Vol] 2.93 10*6/uL 4.2-5.4 [facility] Blood hemoglobin measurement (mass/volume)Ordered By: Dago Emery on 10-10-2022 Hemoglobin (Bld) [Mass/Vol] 10.5 g/dL 12.0-15.0 [facility] Blood lymphocytes/100 leukoc ytesOrdered By: Dago Emery on 10-10-2022 Lymphocytes/100 WBC (Bld) 24.4 % 19-41 [facility] Blood monocytes/100 leukocyt esOrdered By: Dago Emery on 10-10-2022 Monocytes/100 WBC (Bld) 8.1 % 0-10 [facility] Blood platelet mean volumeOr dered By: Dago Emery on 10-10-2022 Platelet mean volume (Bld) [Entitic vol] 10.3 fL 6.2-12.0 [facility] Determination of erythrocyte mean corpuscular volume (MCV)Ordered By: Dago Emery on 10-10-2022 MCV (RBC) [Entitic vol] 109.6 fL 81-99 [facility] Hematocrit Auto (Bld) [Volum e fraction]Ordered By: Dago Emery 10-10-2022 Hematocrit (Bld) [Volume fraction] 32.1 % 37-47 [facility] Laboratory - Chemistry and C hemistry - challengeOrdered By: Dago Emery 10-10-2022 CO2 [Moles/Vol] 24.0 mmol/L 21.0-32.0 [facility] Urea nitrogen/Creatinine [Mass ratio] 24.1 mg/mg 10-20 [facility] Laboratory - Hematology and Cell countsOrdered By: Dago Emery 10-10-2022 Erythrocyte distribution width (RBC) [Entitic vol] 54.4 fL 35.1-43.9 [facility] Erythrocyte distribution width (RBC) [Ratio] 13.9 % 11.6-14.6 [facility] Immature granulocytes/100 WBC (Bld) 0.400 % 0.0-0.9 [facility] Comment on above: IG% - Immature Granu locytes (promyelocytes, myelocytes and metamyelocytes) > 1% indicates that a LEFT SHIFT is Present. MCH (RBC) [Entitic mass] 35.8 pg 27.0-32.0 [facility] Nucleated RBC/100 WBC (Bld) [Ratio] 0 % 0-5 [facility] MCHC Auto (RBC) [Mass/Vol]Or dered By: Dago Emery on 10-10-2022 MCHC (RBC) [Mass/Vol] 32.7 g/dL 32-36 [facility] No Panel InformationOrdered By: Dago Emery on 10-10-2022 Estimated Creatinine Clearance Calc 41.05 ml/min [facility] Estimated GFR (MDRD) Amer 69 mL/min >60 [facility] Comment on above: GFR Calc Estimated GFR (MDRD) Non-Af Amer 57 mL/min >60 [facility] Comment on above: Non- GFR Calc Platelets bldOrdered By: Dago Emery on 10-10-2022 Platelets (Bld) [#/Vol] 409 10*3/uL 150-450 [facility] Serum or plasma calcium niels urement (mass/volume)Ordered By: Dago Emery on 10-10-2022 Calcium [Mass/Vol] 8.7 mg/dL 8.5-10.1 [facility] Serum or plasma creatinine m easurement (mass/volume)Ordered By: Dago Emery on 10-10-2022 Creatinine [Mass/Vol] 1.00 mg/dL 0.55-1.02 [facility] Comment on above: The validity of the calculated GFR & GFRAA in patients over 70 years has not been determined. Clinical correlation is essential. Serum or plasma urea nitroge n measurement (mass/volume)Ordered By: Dago Emery on 10-10-2022 Urea nitrogen [Mass/Vol] 24 mg/dL -18 [facility] Thin prep Papanicolaou smear with manual screeningOrdered By: Dago Emery on 10-10-2022 Thin prep Papanicolaou smear with manual screening 5 5-15 [facility] Absolute lymphocyte countOrd ered By: Dr. Pate on 08-05-2022 Lymphocytes Auto (Unsp spec) [#/Vol] 1.00 10*3/uL 0.83-4.51 [facility] Basophil percentageOrdered B y: Dr. Pate on 08-05-2022 Basophils/100 WBC (Bld) 0.6 % 0-1 [facility] Chloride [Moles/Vol] 111 mmol/L 98-107 [facility] Eosinophils/100 WBC (Bld) 2.5 % 0-5 [facility] Glucose [Mass/Vol] 116 mg/dL 74-106 [facility] Comment on above: Fasting Glucose resu lt from 100 to 125 mg/dL suggests IMPAIRED HOMEOSTASIS per A.D.A. criteria. Neutrophils (Bld) [#/Vol] 3.5 10*3/uL 2.0-7.7 [facility] Neutrophils/100 WBC (Bld) 67.0 % 47-70 [facility] Potassium [Moles/Vol] 3.9 mmol/L 3.5-5.1 [facility] Comment on above: Slight Hemolysis, Re sult may be falsely increased. Sodium [Moles/Vol] 141 mmol/L 136-145 [facility] WBC (Bld) [#/Vol] 5.3 10*3/uL 4.4-11.0 [facility] Blood erythrocytes count (nu mber/volume)Ordered By: Dr. Pate on 08-05-2022 RBC (Bld) [#/Vol] 3.36 10*6/uL 4.2-5.4 [facility] Blood hemoglobin measurement (mass/volume)Ordered By: Dr. Pate on 08-05-2022 Hemoglobin (Bld) [Mass/Vol] 12.4 g/dL 12.0-15.0 [facility] Blood lymphocytes/100 leukoc ytesOrdered By: Dr. Pate on 08-05-2022 Lymphocytes/100 WBC (Bld) 18.9 % 19-41 [facility] Blood monocytes/100 leukocyt esOrdered By: Dr. Pate on 08-05-2022 Monocytes/100 WBC (Bld) 10.2 % 0-10 [facility] Blood platelet mean volumeOr dered By: Dr. Pate on 08-05-2022 Platelet mean volume (Bld) [Entitic vol] 10.6 fL 6.2-12.0 [facility] Determination of erythrocyte mean corpuscular volume (MCV)Ordered By: Dr. Pate on 08-05-2022 MCV (RBC) [Entitic vol] 114.6 fL 81-99 [facility] Hematocrit Auto (Bld) [Volum e fraction]Ordered By: Dr. Pate on 08-05-2022 Hematocrit (Bld) [Volume fraction] 38.5 % 37-47 [facility] Laboratory - Chemistry and C hemistry - challengeOrdered By: Dr. Pate on 08-05-2022 CO2 [Moles/Vol] 24.0 mmol/L 21.0-32.0 [facility] Urea nitrogen/Creatinine [Mass ratio] 23.1 mg/mg 10-20 [facility] Laboratory - Hematology and Cell countsOrdered By: Dr. Pate on 08-05-2022 Erythrocyte distribution width (RBC) [Entitic vol] 59.2 fL 35.1-43.9 [facility] Erythrocyte distribution width (RBC) [Ratio] 14.0 % 11.6-14.6 [facility] Immature granulocytes/100 WBC (Bld) 0.800 % 0.0-0.9 [facility] Comment on above: IG% - Immature Granu locytes (promyelocytes, myelocytes and metamyelocytes) > 1% indicates that a LEFT SHIFT is Present. MCH (RBC) [Entitic mass] 36.9 pg 27.0-32.0 [facility] Nucleated RBC/100 WBC (Bld) [Ratio] 0 % 0-5 [facility] MCHC Auto (RBC) [Mass/Vol]Or dered By: Dr. Pate on 08-05-2022 MCHC (RBC) [Mass/Vol] 32.2 g/dL 32-36 [facility] No Panel InformationOrdered By: Dr. Pate on 08-05-2022 Estimated Creatinine Clearance Calc 37.88 ml/min [facility] Estimated GFR (MDRD) Amer 66 mL/min >60 [facility] Comment on above: GFR Calc Estimated GFR (MDRD) Non-Af Amer 54 mL/min >60 [facility] Comment on above: Non- GFR Calc Platelets bldOrdered By: Dr. Pate on 08-05-2022 Platelets (Bld) [#/Vol] 327 10*3/uL 150-450 [facility] Serum or plasma albumin niels urement (mass/volume)Ordered By: Dr. Pate on 08-05-2022 Albumin [Mass/Vol] 3.3 g/dL 3.2-5.0 [facility] Serum or plasma calcium niels urement (mass/volume)Ordered By: Dr. Pate on 08-05-2022 Calcium [Mass/Vol] 8.9 mg/dL 8.5-10.1 [facility] Serum or plasma creatinine m easurement (mass/volume)Ordered By: Dr. Pate on 08-05-2022 Creatinine [Mass/Vol] 1.04 mg/dL 0.55-1.02 [facility] Comment on above: The validity of the calculated GFR & GFRAA in patients over 70 years has not been determined. Clinical correlation is essential. Serum or plasma urea nitroge n measurement (mass/volume)Ordered By: Dr. Pate on 08-05-2022 Urea nitrogen [Mass/Vol] 24 mg/dL 7-18 [facility] Thin prep Papanicolaou smear with manual screeningOrdered By: Dr. Pate on 08-05-2022 Thin prep Papanicolaou smear with manual screening 6 5-15 [facility] Absolute lymphocyte countOrd ered By: Dr. Pate on 07-20-2022 Lymphocytes Auto (Unsp spec) [#/Vol] 1.03 10*3/uL 0.83-4.51 [facility] Basophil percentageOrdered B y: Dr. Pate on 07-20-2022 Basophils/100 WBC (Bld) 0.3 % 0-1 [facility] Bilirubin [Mass/Vol] 0.40 mg/dL 0.20-1.00 [facility] Comment on above: For patients on eltr ombopag therapy, use of Dimension [place] TBIL is not recommended. Chloride [Moles/Vol] 107 mmol/L 98-107 [facility] Eosinophils/100 WBC (Bld) 2.4 % 0-5 [facility] Glucose [Mass/Vol] 109 mg/dL 74-106 [facility] Comment on above: Fasting Glucose resu lt from 100 to 125 mg/dL suggests IMPAIRED HOMEOSTASIS per A.D.A. criteria. Neutrophils (Bld) [#/Vol] 4.0 10*3/uL 2.0-7.7 [facility] Neutrophils/100 WBC (Bld) 68.9 % 47-70 [facility] Potassium [Moles/Vol] 4.0 mmol/L 3.5-5.1 [facility] Protein [Mass/Vol] 7.2 g/dL 6.4-8.2 [facility] Sodium [Moles/Vol] 140 mmol/L 136-145 [facility] WBC (Bld) [#/Vol] 5.8 10*3/uL 4.4-11.0 [facility] Blood erythrocytes count (nu mber/volume)Ordered By: Dr. Pate on 07-20-2022 RBC (Bld) [#/Vol] 3.25 10*6/uL 4.2-5.4 [facility] Blood hemoglobin measurement (mass/volume)Ordered By: Dr. Pate on 07-20-2022 Hemoglobin (Bld) [Mass/Vol] 12.2 g/dL 12.0-15.0 [facility] Blood lymphocytes/100 leukoc ytesOrdered By: Dr. Pate on 07-20-2022 Lymphocytes/100 WBC (Bld) 17.7 % 19-41 [facility] Blood monocytes/100 leukocyt esOrdered By: Dr. Pate on 07-20-2022 Monocytes/100 WBC (Bld) 10.2 % 0-10 [facility] Blood platelet mean volumeOr dered By: Dr. Pate on 07-20-2022 Platelet mean volume (Bld) [Entitic vol] 11.0 fL 6.2-12.0 [facility] Determination of erythrocyte mean corpuscular volume (MCV)Ordered By: Dr. Pate on 07-20-2022 MCV (RBC) [Entitic vol] 115.1 fL 81-99 [facility] Hematocrit Auto (Bld) [Volum e fraction]Ordered By: Dr. Pate on 07-20-2022 Hematocrit (Bld) [Volume fraction] 37.4 % 37-47 [facility] Laboratory - Chemistry and C hemistry - challengeOrdered By: Dr. Pate on 07-20-2022 ALP [Catalytic activity/Vol] 89 U/L 45-117 [facility] ALT [Catalytic activity/Vol] 26 U/L 13-56 [facility] CO2 [Moles/Vol] 25.0 mmol/L 21.0-32.0 [facility] Globulin (S) [Mass/Vol] 3.9 g/dL 2.2-4.2 [facility] Urea nitrogen/Creatinine [Mass ratio] 18.1 mg/mg 10-20 [facility] Laboratory - Hematology and Cell countsOrdered By: Dr. Pate on 07-20-2022 Erythrocyte distribution width (RBC) [Entitic vol] 63.6 fL 35.1-43.9 [facility] Erythrocyte distribution width (RBC) [Ratio] 15.0 % 11.6-14.6 [facility] Immature granulocytes/100 WBC (Bld) 0.500 % 0.0-0.9 [facility] Comment on above: IG% - Immature Granu locytes (promyelocytes, myelocytes and metamyelocytes) > 1% indicates that a LEFT SHIFT is Present. MCH (RBC) [Entitic mass] 37.5 pg 27.0-32.0 [facility] Nucleated RBC/100 WBC (Bld) [Ratio] 0 % 0-5 [facility] MCHC Auto (RBC) [Mass/Vol]Or dered By: Dr. Pate on 07-20-2022 MCHC (RBC) [Mass/Vol] 32.6 g/dL 32-36 [facility] No Panel InformationOrdered By: Dr. Pate on 07-20-2022 Estimated GFR (MDRD) Amer 58 mL/min >60 [facility] Comment on above: GFR Calc Estimated GFR (MDRD) Non-Af Amer 48 mL/min >60 [facility] Comment on above: Non- GFR Calc Thyroid Stimulating Hormone (TSH) 1.57 uIU/mL 0.358-3.74 [facility] Vitamin D 25-Hydroxy 32.7 ng/mL [facility] Comment on above: Vitamin D 25(OH) Sta tus Range Deficiency <20 ng/mL (50nmol/L) Insufficiency 20 - 30 ng/mL (50 - 75 nmol/L) Sufficiency 30 - 100 ng/mL (75 - 250 nmol/L) Toxicity >100 ng/mL (>250 nmol/L) Platelets bldOrdered By: Dr. Pate on 07-20-2022 Platelets (Bld) [#/Vol] 262 10*3/uL 150-450 [facility] Serum or plasma albumin niels urement (mass/volume)Ordered By: Dr. Pate on 07-20-2022 Albumin [Mass/Vol] 3.3 g/dL 3.2-5.0 [facility] Serum or plasma albumin/glob ulin mass ratioOrdered By: Dr. Pate on 07-20-2022 Albumin/Globulin [Mass ratio] 0.8 {ratio} 0.9-2.4 [facility] Serum or plasma calcium niels urement (mass/volume)Ordered By: Dr. Pate on 07-20-2022 Calcium [Mass/Vol] 8.9 mg/dL 8.5-10.1 [facility] Serum or plasma creatinine m easurement (mass/volume)Ordered By: Dr. Pate on 07-20-2022 Creatinine [Mass/Vol] 1.16 mg/dL 0.55-1.02 [facility] Comment on above: The validity of the calculated GFR & GFRAA in patients over 70 years has not been determined. Clinical correlation is essential. Serum or plasma urea nitroge n measurement (mass/volume)Ordered By: Dr. Pate on 07-20-2022 Urea nitrogen [Mass/Vol] 21 mg/dL 7-18 [facility] Thin prep Papanicolaou smear with manual screeningOrdered By: Dr. Pate on 07-20-2022 Thin prep Papanicolaou smear with manual screening 28 U/L 15-37 [facility] Thin prep Papanicolaou smear with manual screening 8 5-15 [facility] Absolute lymphocyte countOrd ered By: Dr. Pate on 05-06-2022 Lymphocytes Auto (Unsp spec) [#/Vol] 1.13 10*3/uL 0.83-4.51 [facility] Basophil percentageOrdered B y: Dr. Pate on 05-06-2022 Basophils/100 WBC (Bld) 0.2 % 0-1 [facility] Bilirubin [Mass/Vol] 0.40 mg/dL 0.20-1.00 [facility] Comment on above: For patients on eltr ombopag therapy, use of Dimension [place] TBIL is not recommended. Chloride [Moles/Vol] 106 mmol/L 98-107 [facility] Eosinophils/100 WBC (Bld) 1.0 % 0-5 [facility] Glucose [Mass/Vol] 133 mg/dL 74-106 [facility] Comment on above: Fasting Glucose resu lt greater than or equal to 126 mg/dL suggests DIABETES MELLITUS per A.D.A. criteria. Neutrophils (Bld) [#/Vol] 2.5 10*3/uL 2.0-7.7 [facility] Neutrophils/100 WBC (Bld) 60.9 % 47-70 [facility] Potassium [Moles/Vol] 3.4 mmol/L 3.5-5.1 [facility] Protein [Mass/Vol] 7.2 g/dL 6.4-8.2 [facility] Sodium [Moles/Vol] 140 mmol/L 136-145 [facility] WBC (Bld) [#/Vol] 4.1 10*3/uL 4.4-11.0 [facility] Blood erythrocytes count (nu mber/volume)Ordered By: Dr. Pate on 05-06-2022 RBC (Bld) [#/Vol] 3.32 10*6/uL 4.2-5.4 [facility] Blood hemoglobin measurement (mass/volume)Ordered By: Dr. Pate on 05-06-2022 Hemoglobin (Bld) [Mass/Vol] 12.4 g/dL 12.0-15.0 [facility] Blood lymphocytes/100 leukoc ytesOrdered By: Dr. Pate on 05-06-2022 Lymphocytes/100 WBC (Bld) 27.5 % 19-41 [facility] Blood monocytes/100 leukocyt esOrdered By: Dr. Pate on 05-06-2022 Monocytes/100 WBC (Bld) 9.7 % 0-10 [facility] Blood platelet mean volumeOr dered By: Dr. Pate on 05-06-2022 Platelet mean volume (Bld) [Entitic vol] 10.6 fL 6.2-12.0 [facility] Determination of erythrocyte mean corpuscular volume (MCV)Ordered By: Dr. Pate on 05-06-2022 MCV (RBC) [Entitic vol] 112.0 fL 81-99 [facility] Hematocrit Auto (Bld) [Volum e fraction]Ordered By: Dr. Pate on 05-06-2022 Hematocrit (Bld) [Volume fraction] 37.2 % 37-47 [facility] Laboratory - Chemistry and C hemistry - challengeOrdered By: Dr. Pate on 05-06-2022 ALP [Catalytic activity/Vol] 75 U/L 45-117 [facility] ALT [Catalytic activity/Vol] 17 U/L 13-56 [facility] CO2 [Moles/Vol] 27.0 mmol/L 21.0-32.0 [facility] Globulin (S) [Mass/Vol] 3.8 g/dL 2.2-4.2 [facility] Urea nitrogen/Creatinine [Mass ratio] 20.2 mg/mg 10-20 [facility] Laboratory - Hematology and Cell countsOrdered By: Dr. Pate on 05-06-2022 Erythrocyte distribution width (RBC) [Entitic vol] 62.5 fL 35.1-43.9 [facility] Erythrocyte distribution width (RBC) [Ratio] 15.3 % 11.6-14.6 [facility] Immature granulocytes/100 WBC (Bld) 0.700 % 0.0-0.9 [facility] Comment on above: IG% - Immature Granu locytes (promyelocytes, myelocytes and metamyelocytes) > 1% indicates that a LEFT SHIFT is Present. MCH (RBC) [Entitic mass] 37.3 pg 27.0-32.0 [facility] Nucleated RBC/100 WBC (Bld) [Ratio] 0 % 0-5 [facility] MCHC Auto (RBC) [Mass/Vol]Or dered By: Dr. Pate on 05-06-2022 MCHC (RBC) [Mass/Vol] 33.3 g/dL 32-36 [facility] No Panel InformationOrdered By: Dr. Pate on 05-06-2022 Estimated Creatinine Clearance Calc 36.73 ml/min [facility] Estimated GFR (MDRD) Amer 62 mL/min >60 [facility] Comment on above: GFR Calc Estimated GFR (MDRD) Non-Af Amer 52 mL/min >60 [facility] Comment on above: Non- GFR Calc Platelets bldOrdered By: Dr. Pate on 05-06-2022 Platelets (Bld) [#/Vol] 239 10*3/uL 150-450 [facility] Serum or plasma albumin niels urement (mass/volume)Ordered By: Dr. Pate on 05-06-2022 Albumin [Mass/Vol] 3.4 g/dL 3.2-5.0 [facility] Serum or plasma albumin/glob ulin mass ratioOrdered By: Dr. Pate on 05-06-2022 Albumin/Globulin [Mass ratio] 0.9 {ratio} 0.9-2.4 [facility] Serum or plasma calcium niels urement (mass/volume)Ordered By: Dr. Pate on 05-06-2022 Calcium [Mass/Vol] 8.9 mg/dL 8.5-10.1 [facility] Serum or plasma creatinine m easurement (mass/volume)Ordered By: Dr. Pate on 05-06-2022 Creatinine [Mass/Vol] 1.09 mg/dL 0.55-1.02 [facility] Comment on above: The validity of the calculated GFR & GFRAA in patients over 70 years has not been determined. Clinical correlation is essential. Serum or plasma urea nitroge n measurement (mass/volume)Ordered By: Dr. Pate on 05-06-2022 Urea nitrogen [Mass/Vol] 22 mg/dL 7-18 [facility] Thin prep Papanicolaou smear with manual screeningOrdered By: Dr. Pate on 05-06-2022 Thin prep Papanicolaou smear with manual screening 22 U/L 15-37 [facility] Thin prep Papanicolaou smear with manual screening 7 5-15 [facility] Absolute lymphocyte countOrd ered By: Dr. Pate on 02-04-2022 Lymphocytes Auto (Unsp spec) [#/Vol] 1.02 10*3/uL 0.83-4.51 [facility] Basophil percentageOrdered B y: Dr. Pate on 02-04-2022 Basophils/100 WBC (Bld) 0.5 % 0-1 [facility] Bilirubin [Mass/Vol] 0.50 mg/dL 0.20-1.00 [facility] Comment on above: For patients on eltr ombopag therapy, use of Dimension [place] TBIL is not recommended. Chloride [Moles/Vol] 106 mmol/L 98-107 [facility] Eosinophils/100 WBC (Bld) 0.5 % 0-5 [facility] Glucose [Mass/Vol] 117 mg/dL 74-106 [facility] Comment on above: Fasting Glucose resu lt from 100 to 125 mg/dL suggests IMPAIRED HOMEOSTASIS per A.D.A. criteria. Neutrophils (Bld) [#/Vol] 2.9 10*3/uL 2.0-7.7 [facility] Neutrophils/100 WBC (Bld) 65.2 % 47-70 [facility] Potassium [Moles/Vol] 4.2 mmol/L 3.5-5.1 [facility] Comment on above: Slight Hemolysis, Re sult may be falsely increased. Protein [Mass/Vol] 7.7 g/dL 6.4-8.2 [facility] Sodium [Moles/Vol] 141 mmol/L 136-145 [facility] WBC (Bld) [#/Vol] 4.4 10*3/uL 4.4-11.0 [facility] Blood erythrocytes count (nu mber/volume)Ordered By: Dr. Pate on 02-04-2022 RBC (Bld) [#/Vol] 3.63 10*6/uL 4.2-5.4 [facility] Blood hemoglobin measurement (mass/volume)Ordered By: Dr. Pate on 02-04-2022 Hemoglobin (Bld) [Mass/Vol] 13.2 g/dL 12.0-15.0 [facility] Blood lymphocytes/100 leukoc ytesOrdered By: Dr. Pate on 02-04-2022 Lymphocytes/100 WBC (Bld) 23.3 % 19-41 [facility] Blood monocytes/100 leukocyt esOrdered By: Dr. Pate on 02-04-2022 Monocytes/100 WBC (Bld) 9.8 % 0-10 [facility] Blood platelet mean volumeOr dered By: Dr. Pate on 02-04-2022 Platelet mean volume (Bld) [Entitic vol] 10.4 fL 6.2-12.0 [facility] Determination of erythrocyte mean corpuscular volume (MCV)Ordered By: Dr. Pate on 02-04-2022 MCV (RBC) [Entitic vol] 111.0 fL 81-99 [facility] Hematocrit Auto (Bld) [Volum e fraction]Ordered By: Dr. Pate on 02-04-2022 Hematocrit (Bld) [Volume fraction] 40.3 % 37-47 [facility] Laboratory - Chemistry and C hemistry - challengeOrdered By: Dr. Pate on 02-04-2022 ALP [Catalytic activity/Vol] 82 U/L 45-117 [facility] ALT [Catalytic activity/Vol] 23 U/L 13-56 [facility] CO2 [Moles/Vol] 28.0 mmol/L 21.0-32.0 [facility] Globulin (S) [Mass/Vol] 4.3 g/dL 2.2-4.2 [facility] Urea nitrogen/Creatinine [Mass ratio] 16.0 mg/mg 10-20 [facility] Laboratory - Hematology and Cell countsOrdered By: Dr. Pate on 02-04-2022 Erythrocyte distribution width (RBC) [Entitic vol] 63.5 fL 35.1-43.9 [facility] Erythrocyte distribution width (RBC) [Ratio] 15.6 % 11.6-14.6 [facility] Immature granulocytes/100 WBC (Bld) 0.700 % 0.0-0.9 [facility] Comment on above: IG% - Immature Granu locytes (promyelocytes, myelocytes and metamyelocytes) > 1% indicates that a LEFT SHIFT is Present. MCH (RBC) [Entitic mass] 36.4 pg 27.0-32.0 [facility] Nucleated RBC/100 WBC (Bld) [Ratio] 0 % 0-5 [facility] [Mass/Vol]Or dered By: Dr. Paet on 02-04-2022 MCHC (RBC) [Mass/Vol] 32.8 g/dL 32-36 [facility] No Panel InformationOrdered By: Dr. Pate on 02-04-2022 Estimated Creatinine Clearance Calc 37.77 ml/min [facility] Estimated GFR (MDRD) Amer 64 mL/min >60 [facility] Comment on above: GFR Calc Estimated GFR (MDRD) Non-Af Amer 53 mL/min >60 [facility] Comment on above: Non- GFR Calc Platelets bldOrdered By: Dr. Pate on 02-04-2022 Platelets (Bld) [#/Vol] 300 10*3/uL 150-450 [facility] Serum or plasma albumin niels urement (mass/volume)Ordered By: Dr. Pate on 02-04-2022 Albumin [Mass/Vol] 3.4 g/dL 3.2-5.0 [facility] Serum or plasma albumin/glob ulin mass ratioOrdered By: Dr. Pate on 02-04-2022 Albumin/Globulin [Mass ratio] 0.8 {ratio} 0.9-2.4 [facility] Serum or plasma calcium niels urement (mass/volume)Ordered By: Dr. Pate on 02-04-2022 Calcium [Mass/Vol] 9.4 mg/dL 8.5-10.1 [facility] Serum or plasma creatinine m easurement (mass/volume)Ordered By: Dr. Pate on 02-04-2022 Creatinine [Mass/Vol] 1.06 mg/dL 0.55-1.02 [facility] Comment on above: The validity of the calculated GFR & GFRAA in patients over 70 years has not been determined. Clinical correlation is essential. Serum or plasma urea nitroge n measurement (mass/volume)Ordered By: Dr. Pate on 02-04-2022 Urea nitrogen [Mass/Vol] 17 mg/dL 7-18 [facility] Thin prep Papanicolaou smear with manual screeningOrdered By: Dr. Pate on 02-04-2022 Thin prep Papanicolaou smear with manual screening 25 U/L 15-37 [facility] Comment on above: Slight Hemolysis, Re sult may be falsely increased. Thin prep Papanicolaou smear with manual screening 7 5-15 [facility] Absolute lymphocyte countOrd ered By: Dr. Emery on 01-19-2022 Lymphocytes Auto (Unsp spec) [#/Vol] 1.06 10*3/uL 0.83-4.51 [facility] Basophil percentageOrdered B y: Dr. Emery on 01-19-2022 Basophils/100 WBC (Bld) 0.4 % 0-1 [facility] Bilirubin [Mass/Vol] 0.50 mg/dL 0.20-1.00 [facility] Comment on above: For patients on eltr ombopag therapy, use of Dimension [place] TBIL is not recommended. Chloride [Moles/Vol] 106 mmol/L 98-107 [facility] Eosinophils/100 WBC (Bld) 1.1 % 0-5 [facility] Glucose [Mass/Vol] 122 mg/dL 74-106 [facility] Comment on above: Fasting Glucose resu lt from 100 to 125 mg/dL suggests IMPAIRED HOMEOSTASIS per A.D.A. criteria. Neutrophils (Bld) [#/Vol] 4.0 10*3/uL 2.0-7.7 [facility] Neutrophils/100 WBC (Bld) 70.3 % 47-70 [facility] Potassium [Moles/Vol] 3.8 mmol/L 3.5-5.1 [facility] Comment on above: Slight Hemolysis, Re sult may be falsely increased. Protein [Mass/Vol] 7.3 g/dL 6.4-8.2 [facility] Sodium [Moles/Vol] 140 mmol/L 136-145 [facility] WBC (Bld) [#/Vol] 5.6 10*3/uL 4.4-11.0 [facility] Blood erythrocytes count (nu mber/volume)Ordered By: Dr. Emery on 01-19-2022 RBC (Bld) [#/Vol] 3.58 10*6/uL 4.2-5.4 [facility] Blood hemoglobin measurement (mass/volume)Ordered By: Dr. Emery on 01-19-2022 Hemoglobin (Bld) [Mass/Vol] 13.5 g/dL 12.0-15.0 [facility] Blood lymphocytes/100 leukoc ytesOrdered By: Dr. Emery on 01-19-2022 Lymphocytes/100 WBC (Bld) 18.9 % 19-41 [facility] Blood monocytes/100 leukocyt esOrdered By: Dr. Emery on 01-19-2022 Monocytes/100 WBC (Bld) 8.9 % 0-10 [facility] Blood platelet mean volumeOr dered By: Dr. Emery on 01-19-2022 Platelet mean volume (Bld) [Entitic vol] 10.4 fL 6.2-12.0 [facility] Determination of erythrocyte mean corpuscular volume (MCV)Ordered By: Dr. Emery on 01-19-2022 MCV (RBC) [Entitic vol] 110.1 fL 81-99 [facility] Hematocrit Auto (Bld) [Volum e fraction]Ordered By: Dr. Emery on 01-19-2022 Hematocrit (Bld) [Volume fraction] 39.4 % 37-47 [facility] Laboratory - Chemistry and C hemistry - challengeOrdered By: Dr. Emery on 01-19-2022 ALP [Catalytic activity/Vol] 87 U/L 45-117 [facility] ALT [Catalytic activity/Vol] 21 U/L 13-56 [facility] CO2 [Moles/Vol] 27.0 mmol/L 21.0-32.0 [facility] Globulin (S) [Mass/Vol] 4.0 g/dL 2.2-4.2 [facility] Urea nitrogen/Creatinine [Mass ratio] 16.0 mg/mg 10-20 [facility] Laboratory - Hematology and Cell countsOrdered By: Dr. Emery on 01-19-2022 Erythrocyte distribution width (RBC) [Entitic vol] 61.0 fL 35.1-43.9 [facility] Erythrocyte distribution width (RBC) [Ratio] 15.3 % 11.6-14.6 [facility] Immature granulocytes/100 WBC (Bld) 0.400 % 0.0-0.9 [facility] Comment on above: IG% - Immature Granu locytes (promyelocytes, myelocytes and metamyelocytes) > 1% indicates that a LEFT SHIFT is Present. MCH (RBC) [Entitic mass] 37.7 pg 27.0-32.0 [facility] Nucleated RBC/100 WBC (Bld) [Ratio] 0 % 0-5 [facility] MCHC Auto (RBC) [Mass/Vol]Or dered By: Dr. Emery on 01-19-2022 MCHC (RBC) [Mass/Vol] 34.3 g/dL 32-36 [facility] No Panel InformationOrdered By: Dr. Emery on 01-19-2022 Estimated GFR (MDRD) Amer 64 mL/min >60 [facility] Comment on above: GFR Calc Estimated GFR (MDRD) Non-Af Amer 53 mL/min >60 [facility] Comment on above: Non- GFR Calc Thyroid Stimulating Hormone (TSH) 1.77 uIU/mL 0.358-3.74 [facility] Vitamin D 25-Hydroxy 28.7 ng/mL [facility] Comment on above: Vitamin D 25(OH) Sta tus Range Deficiency <20 ng/mL (50nmol/L) Insufficiency 20 - 30 ng/mL (50 - 75 nmol/L) Sufficiency 30 - 100 ng/mL (75 - 250 nmol/L) Toxicity >100 ng/mL (>250 nmol/L) Platelets bldOrdered By: Dr. Emery on 01-19-2022 Platelets (Bld) [#/Vol] 258 10*3/uL 150-450 [facility] Serum or plasma albumin niels urement (mass/volume)Ordered By: Dr. Emery on 01-19-2022 Albumin [Mass/Vol] 3.3 g/dL 3.2-5.0 [facility] Serum or plasma albumin/glob ulin mass ratioOrdered By: Dr. Emery on 01-19-2022 Albumin/Globulin [Mass ratio] 0.8 {ratio} 0.9-2.4 [facility] Serum or plasma calcium niels urement (mass/volume)Ordered By: Dr. Emery on 01-19-2022 Calcium [Mass/Vol] 9.2 mg/dL 8.5-10.1 [facility] Serum or plasma creatinine m easurement (mass/volume)Ordered By: Dr. Emery on 01-19-2022 Creatinine [Mass/Vol] 1.06 mg/dL 0.55-1.02 [facility] Comment on above: The validity of the calculated GFR & GFRAA in patients over 70 years has not been determined. Clinical correlation is essential. Serum or plasma urea nitroge n measurement (mass/volume)Ordered By: Dr. Emery on 01-19-2022 Urea nitrogen [Mass/Vol] 17 mg/dL 7- [facility] Thin prep Papanicolaou smear with manual screeningOrdered By: Dr. Emery on 01-19-2022 Thin prep Papanicolaou smear with manual screening 24 U/L [facility] Comment on above: Slight Hemolysis, Re sult may be falsely increased. Thin prep Papanicolaou smear with manual screening 7 - [facility] Absolute lymphocyte counton 11-04-2021 Lymphocytes Auto (Unsp spec) [#/Vol] 1.00 10*3/uL 0.83-4.51 [facility] Work Phone: Basophil percentageon 2021 Basophils/100 WBC (Bld) 0.3 % 0-1 [facility] Work Phone: Bilirubin [Mass/Vol] 0.50 mg/dL 0.20-1.00 [facility] Work Phone: Comment on above: For patients on eltr ombopag therapy, use of Dimension [place] TBIL is not recommended. Chloride [Moles/Vol] 109 mmol/L 98-107 [facility] Work Phone: [phone] Eosinophils/100 WBC (Bld) 1.0 % 0-5 [facility] Work Phone: Glucose [Mass/Vol] 126 mg/dL 74-106 [facility] Work Phone: Comment on above: Fasting Glucose resu lt greater than or equal to 126 mg/dL suggests DIABETES MELLITUS per A.D.A. criteria. Neutrophils (Bld) [#/Vol] 4.5 10*3/uL 2.0-7.7 [facility] Work Phone: Neutrophils/100 WBC (Bld) 75.0 % 47-70 [facility] Work Phone: Potassium [Moles/Vol] 3.7 mmol/L 3.5-5.1 [facility] Work Phone: Comment on above: Slight Hemolysis, Re sult may be falsely increased. Protein [Mass/Vol] 7.5 g/dL 6.4-8.2 [facility] Work Phone: Sodium [Moles/Vol] 141 mmol/L 136-145 [facility] Work Phone: WBC (Bld) [#/Vol] 6.0 10*3/uL 4.4-11.0 [facility] Work Phone: Blood erythrocytes count (nu mber/volume)on 11-04-2021 RBC (Bld) [#/Vol] 3.60 10*6/uL 4.2-5.4 [facility] Work Phone: Blood hemoglobin measurement (mass/volume)on 11-04-2021 Hemoglobin (Bld) [Mass/Vol] 13.3 g/dL 12.0-15.0 [facility] Work Phone: Blood lymphocytes/100 leukoc yteson 11-04-2021 Lymphocytes/100 WBC (Bld) 16.7 % 19-41 [facility] Work Phone: Blood monocytes/100 leukocyt eson 11-04-2021 Monocytes/100 WBC (Bld) 6.5 % 0-10 [facility] Work Phone: Blood platelet mean volumeon 11-04-2021 Platelet mean volume (Bld) [Entitic vol] 10.5 fL 6.2-12.0 [facility] Work Phone: Determination of erythrocyte mean corpuscular volume (MCV)on 11-04-2021 MCV (RBC) [Entitic vol] 111.9 fL 81-99 [facility] Work Phone: [phone] Hematocrit Auto (Bld) [Volum e fraction]on 11-04-2021 Hematocrit (Bld) [Volume fraction] 40.3 % 37-47 [facility] Work Phone: [phone] Laboratory - Chemistry and C hemistry - challengeon 11-04-2021 ALP [Catalytic activity/Vol] 82 U/L 45-117 [facility] Work Phone: ALT [Catalytic activity/Vol] 22 U/L 13-56 [facility] Work Phone: CO2 [Moles/Vol] 26.0 mmol/L 21.0-32.0 [facility] Work Phone: [phone] Globulin (S) [Mass/Vol] 4.2 g/dL 2.2-4.2 [facility] Work Phone: [phone] Urea nitrogen/Creatinine [Mass ratio] 14.0 mg/mg 10-20 [facility] Work Phone: Laboratory - Hematology and Cell countson 11-04-2021 Erythrocyte distribution width (RBC) [Entitic vol] 55.7 fL 35.1-43.9 [facility] Work Phone: [phone] Erythrocyte distribution width (RBC) [Ratio] 13.7 % 11.6-14.6 [facility] Work Phone: [phone] Immature granulocytes/100 WBC (Bld) 0.500 % 0.0-0.9 [facility] Work Phone: [phone] Comment on above: IG% - Immature Granu locytes (promyelocytes, myelocytes and metamyelocytes) > 1% indicates that a LEFT SHIFT is Present. MCH (RBC) [Entitic mass] 36.9 pg 27.0-32.0 [facility] Work Phone: Nucleated RBC/100 WBC (Bld) [Ratio] 0 % 0-5 [facility] Work Phone: MCHC Auto (RBC) [Mass/Vol]on 11-04-2021 MCHC (RBC) [Mass/Vol] 33.0 g/dL 32-36 [facility] Work Phone: No Panel Informationon 11-04 Estimated Creatinine Clearance Calc 35.12 ml/min [facility] Work Phone: Estimated GFR (MDRD) Amer 59 mL/min >60 [facility] Work Phone: Comment on above: GFR Calc Estimated GFR (MDRD) Non-Af Amer 49 mL/min >60 [facility] Work Phone: Comment on above: Non- GFR Calc Platelets bldon 11-04-2021 Platelets (Bld) [#/Vol] 290 10*3/uL 150-450 [facility] Work Phone: Serum or plasma albumin niels urement (mass/volume)on 11-04-2021 Albumin [Mass/Vol] 3.3 g/dL 3.2-5.0 [facility] Work Phone: Serum or plasma albumin/glob ulin mass ratioon 11-04-2021 Albumin/Globulin [Mass ratio] 0.8 {ratio} 0.9-2.4 [facility] Work Phone: Serum or plasma calcium niels urement (mass/volume)on 11-04-2021 Calcium [Mass/Vol] 9.3 mg/dL 8.5-10.1 [facility] Work Phone: Serum or plasma creatinine m easurement (mass/volume)on 11-04-2021 Creatinine [Mass/Vol] 1.14 mg/dL 0.55-1.02 [facility] Work Phone: Comment on above: The validity of the calculated GFR & GFRAA in patients over 70 years has not been determined. Clinical correlation is essential. Serum or plasma urea nitroge n measurement (mass/volume)on 11-04-2021 Urea nitrogen [Mass/Vol] 16 mg/dL 7-18 [facility] Work Phone: Thin prep Papanicolaou smear with manual screeningon 11-04-2021 Thin prep Papanicolaou smear with manual screening 23 U/L 15-37 [facility] Work Phone: Comment on above: Slight Hemolysis, Re sult may be falsely increased. Thin prep Papanicolaou smear with manual screening 6 5-15 [facility] Work Phone: Blood platelet adequacy dete ction by light microscopyon 11-24-2018 Platelets LM Ql (Bld) ADEQUATE ADEQ [facility] Blood platelet morphology de termination (nominal result)on 11-24-2018 Platelet morphology finding Nom (Bld) LARGE [facility] Laboratory - Hematology and Cell countson 11-24-2018 Anisocytosis Ql (Bld) 2+ [facility] Macrocytes detectionon 11-24 Macrocytes Ql (Bld) 1+ [facility] Target cell detectionon Target cells LM Ql (Bld) RARE [facility] Hypochromatic red blood cell detectionon 10-27-2018 Hypochromia Ql (Bld) 1+ [facility] No Panel Informationon 10-27 Differential Comment SCANNED [facility] Comment on above: DIMORPHIC RBC POPULA TION NOTED Review by pathologiston Pathologist review Jack (Unsp spec) [Interp] Reviewed [facility] Comment on above: Previous reported re sult: Jahaira shayna Edited by: URIEL on 10/28/18:1304 AMENDED REPORT 10/28/18 1304 PATH REV previously reported as: Jahaira corral Absolute reticulocyte counto n 10-13-2018 Reticulocytes (Bld) [#/Vol] 0.00 10*3/uL 0-5 [facility] Laboratory - Hematology and Cell countson 09-29-2018 Erythrocyte distribution width (RBC) [Ratio] 24.6 % High 11.6-14.6 [facility] No Panel Informationon 09-29 Red Cell Distribution Width Diff 73.7 fl High 35.1-43.9 [facility] Total cell counton 9 Cells counted [employer] (Bld/Tiss) [#] Not Reportable [facility] RBC morphologyon 09-21-2018 RBC morphology finding Nom (Bld) N CHROM NORMAL NORM C&C [facility] General Foods mix RAST testo n 06-27-2018 LDH [Catalytic activity/Vol] 283 U/L High 84-246 [facility] Comment on above: Slight Hemolysis, Re sult may be falsely increased. Iron measurement (mass/mass) on 06-27-2018 Iron (Unsp spec) [Mass/Mass] 54 ug/dL 50-170 [facility] Comment on above: Slight Hemolysis, Re sult may be falsely increased. JAK2 V617F mutation detectio non 06-27-2018 JAK2 gene p.[id number] [facility] Ql (Bld/Tiss) Comment High . [facility] Comment on above: Result: POSITIVE for the detection of the V617F mutation.Interpretation: The assay detected the presence of a G toT nucleotide change encoding the V617F mutation withinJAK2. Interpretation of this result should be made in thecontext of other clinical, morphologic, and cytogeneticfindings. No Panel Informationon 06-27 JAK2 Mutation Comment . [facility] Comment on above: JAK2 is a cytoplasmi c tyrosine kinase with a ferrell role insignal transduction from multiple hematopoietic growthfactor receptors. A point mutation within exon 14 of theJAK2 gene ([id number]) encoding a valine to phenylalaninesubstitution at position [...] specific to JAK2 wild type (WT) and [id number] V617F. The [employer] Absolute Quantitation softwarewill compare the patient specimen valuse to the standardcurves and generate percent values for wild type andmutant type. In vitro studies have indicated that thisassay has an analytical sensitivity of 1%.References:Matthew EJ, Jean GREENBERG, Zachary PJ, et al. Acquiredmutation of the tyrosine kinase JAK2 in humanmyeloproliferative disorders. Lancet. 2004Jun 07;361(4700):1486-7832. Travis Santiago, Guido V, Mary Rosas JP. Aunique clonal JAK2 mutation leading to constitutivesignaling causes polycythaemia vera. Nature. 2005 Jul 17;681(2649):4904-1752.Nicolas R, Bolivar F, Jolynn , et al. A oaou-rm-kfluzppj mutation of JAK2 in myeloproliferative disorders.N Engl J Med. 2005 Jul 17; 352(07):3285-3424. Miscellaneous Test See comment [facility] Comment on above: TEST RESULT UNITS RE [...] was developed and its performancecharacteristics determined by [employer] ([employer]). It has not been cleared orapproved by the U.S. Food and Drug Administration. The DNAprobe vendor for this study was [employer] ([employer]).Specimen Type Comment: BLOODDirector Review: Comment: Travis Chavez, PhD, [facility] .Specimen Type Comment: BLOODCells Counted 5Cells Analyzed [...] chromosomal changes occur.Director Review: Comment:AMIE FERREIRA, PHD, [facility] TESTING PERFORMED AT [facility]. ORIGINAL REPORT ON FILE IN LAB CONTAINS ADDITIONAL TEST SITE INFORMATION. Total Iron Binding Capacity 289 ug/dL 250-450 [facility] Serum or plasma erythropoiet in (EPO) measurement (units/volume)on 06-27-2018 Erythropoietin (EPO) Qn 4.2 mIU/mL 2.6-18.5 [facility] Comment on above: [employer] el DxI 800 Immunoassay SystemValues obtained with different assay methods or kits cannotbe used interchangeably. Results cannot be interpreted asabsolute evidence of the presence or absence of malignantdisease.Performed at: [facility] [id number] [facility], [facility], [place] [id number] Director: Mj Coronado MD, Phone: [phone] at: [facility] [id number], [facility], [place] [id number] Director: Mj Coronado MD, Phone: [phone] at: [facility], [place] [id number] Director: Ruddy Parks PhD, Phone: [phone] Serum or plasma ferritin hayden surement (mass/volume)on 06-27-2018 Ferritin [Mass/Vol] 561 ng/mL High 8-252 [facility] Serum or plasma iron saturat ion measurement (mass fraction)on 06-27-2018 Iron saturation [Mass fraction] 18.7 % 15.0-55.0 [facility] Serum or plasma uric acid me asurement (mass/volume)on 06-27-2018 Urate [Mass/Vol] 4.2 mg/dL 2.6-6.0 [facility] Comment on above: The drugs N-Acetylcy steine and Metamizole may falsely depress this assay. Thin prep Papanicolaou smear with manual screeningon 06-27-2018 Thin prep Papanicolaou smear with manual screening 283 U/L 84-246 [facility] Comment on above: Slight Hemolysis, Re sult may be falsely increased. Vital Signs Date Time Vital Sign Value Performing Clinician Faci lity 10-21-2024 13:13-0400 Body temperature 98.3 [degF] Dr. Dago Emery MD Work Phone: [facility] 10-21-2024 13:13-0400 Diastolic blood pressure 67 mm[Hg] Dr. Dago Emery MD Work Phone: [facility] 10-21-2024 13:13-0400 Heart rate 62 /min Dr. Dago Emery MD Work Phone: [facility] 10-21-2024 13:13-0400 Respiratory rate 18 /min Dr. Dago Emery MD Work Phone: [facility] 10-21-2024 13:13-0400 SaO2% (BldA) [Mass fraction] 95 % Dr. Dago Emery MD Work Phone: [facility] 10-21-2024 13:13-0400 Systolic blood pressure 129 mm[Hg] Dr. Dago Emery MD Work Phone: [facility] 10-16-2024 22:13-0400 Inhaled oxygen flow rate 2 L/min Dr. Dago Emery MD Work Phone: [facility] 10-16-2024 20:13-0400 Body height 165.[address] Dago Emery MD Work Phone: 1(295)049-867793 [place] [address] 10-16-2024 20:13-0400 Body mass index (BMI) [Ratio] 31.1 kg/m2 Dr. Dago Emery MD Work Phone: 4(293)815-816593 [place] [address] 10-16-2024 20:13-0400 Body weight [address] Dago Emery MD Work Phone: 8(705)751-466493 [place] [address] 10-11-2024 15:05-0400 Body height 165.[address] Dago Emery MD Work Phone: 1(170)169-962393 [place] [address] 10-11-2024 15:05-0400 Body temperature 98.2 [degF] Dr. Dago Emery MD Work Phone: 6(063)819-590093 [place] [address] 10-11-2024 15:05-0400 Diastolic blood pressure 73 mm[Hg] Dr. Dago Emery MD Work Phone: 9(743)035-434593 [place] [address] 10-11-2024 15:05-0400 Heart rate 52 /min Dr. Dago Emery MD Work Phone: 8(059)060-524193 [place] [address] 10-11-2024 15:05-0400 Respiratory rate 16 /min Dr. Dago Emery MD Work Phone: 8(516)890-578593 [place] [address] 10-11-2024 15:05-0400 SaO2% (BldA) [Mass fraction] 98 % Dr. Dago Emery MD Work Phone: 0(897)488-024193 [place] [address] 10-11-2024 15:05-0400 Systolic blood pressure 169 mm[Hg] Dr. Dago Emery MD Work Phone: 5(512)381-058293 [place] [address] 09-20-2024 14:30-0400 Body height 165.[address] Dago Emery MD Work Phone: 0(717)051-740893 [place] [address] 09-20-2024 14:30-0400 Body mass index (BMI) [Ratio] 32.4 kg/m2 Dr. Dago Emery MD Work Phone: 2(302)684-622004 [place] [address] 09-20-2024 14:30-0400 Body weight 88.[address] Dago Emery MD Work Phone: 6(099)425-158693 [place] [address] 09-20-2024 14:30-0400 Diastolic blood pressure 73 mm[Hg] Dr. Dago Emery MD Work Phone: 0(266)841-709393 [place] [address] 09-20-2024 14:30-0400 Heart rate 56 /min Dr. Dago Emery MD Work Phone: 7(006)187-307593 [place] [address] 09-20-2024 14:30-0400 Respiratory rate 18 /min Dr. Dago Emery MD Work Phone: 6(589)438-532693 [place] [address] 09-20-2024 14:30-0400 SaO2% (BldA) [Mass fraction] 95 % Dr. Dago Emery MD Work Phone: 8(201)569-033993 [place] [address] 09-20-2024 14:30-0400 Systolic blood pressure 124 mm[Hg] Dr. Dago Emery MD Work Phone: 0(443)668-005093 [place] [address] 07-10-2024 13:45-0400 Body height 165.[address] Dago Emery MD Work Phone: 2(403)330-384593 [place] [address] 07-10-2024 13:45-0400 Body temperature 97.8 [degF] Dr. Dago Emery MD Work Phone: 7(479)297-870493 [place] [address] 07-10-2024 13:45-0400 Diastolic blood pressure 66 mm[Hg] Dr. Dago Emery MD Work Phone: 0(730)920-776293 [place] [address] 07-10-2024 13:45-0400 Heart rate 46 /min Dr. Dago Emery MD Work Phone: 4(851)955-983193 [place] [address] 07-10-2024 13:45-0400 Respiratory rate 16 /min Dr. Dago Emery MD Work Phone: 7(152)023-375393 [place] [address] 07-10-2024 13:45-0400 SaO2% (BldA) [Mass fraction] 98 % Dr. Dago Emery MD Work Phone: 4(712)094-298893 [place] [address] 07-10-2024 13:45-0400 Systolic blood pressure 104 mm[Hg] Dr. Dago Emery MD Work Phone: 8(170)406-323093 [place] [address] 02-22-2024 14:10-0500 Body weight 88.[address] Dago Emery MD Work Phone: [facility] 11-04-2022 14:40-0400 Body height 165.[address] Dago Emery Work Phone: [facility] 11-04-2022 14:40-0400 Body mass index (BMI) [Ratio] 34.2 kg/m2 Dr. Dago Emery Work Phone: [facility] 11-04-2022 14:40-0400 Body temperature 98 [degF] Dr. Dago Emery Work Phone: [facility] 11-04-2022 14:40-0400 Body weight 93.[address] Dago Emery Work Phone: [facility] 11-04-2022 14:40-0400 Diastolic blood pressure 74 mm[Hg] Dr. Dago Emery Work Phone: [facility] 11-04-2022 14:40-0400 Heart rate 51 /min Dr. Dago Emeyr Work Phone: [facility] 11-04-2022 14:40-0400 Respiratory rate 16 /min Dr. Dago Emery Work Phone: [facility] 11-04-2022 14:40-0400 SaO2% (BldA) [Mass fraction] 98 % Dr. Dago Emery Work Phone: [facility] 11-04-2022 14:40-0400 Systolic blood pressure 140 mm[Hg] Dr. Dago Emery Work Phone: [facility] 10-14-2022 12:50-0400 Body temperature 97.6 [degF] Dr. Dago Emery Work Phone: [facility] 10-14-2022 12:50-0400 Diastolic blood pressure 47 mm[Hg] Dr. Dago Emery Work Phone: [facility] 10-14-2022 12:50-0400 Heart rate 70 /min Dr. Dago Emery Work Phone: [facility] 10-14-2022 12:50-0400 Respiratory rate 18 /min Dr. Dago Emery Work Phone: [facility] 10-14-2022 12:50-0400 SaO2% (BldA) [Mass fraction] 94 % Dr. Dago Emery Work Phone: 4(819)754-251404 [place] [address] 10-14-2022 12:50-0400 Systolic blood pressure 141 mm[Hg] Dr. Dago Emery Work Phone: 9(212)155-421104 [place] [address] 10-13-2022 09:00-0400 Body mass index (BMI) [Ratio] 34.4 kg/m2 Dr. Dago Emery Work Phone: 2(144)177-511404 [place] [address] 10-13-2022 09:00-0400 Body weight 93.[address] Dago Emery Work Phone: 8(994)723-549293 [place] [address] 08-05-2022 13:49-0400 Body height 165.[address] Dago Emery Work Phone: 4(353)038-696793 [place] [address] 08-05-2022 13:49-0400 Body mass index (BMI) [Ratio] 34.2 kg/m2 Dr. Dago Emery Work Phone: 3(164)737-617693 [place] [address] 08-05-2022 13:49-0400 Body temperature 98.3 [degF] Dr. Dago Emery Work Phone: 0(052)830-806193 [place] [address] 08-05-2022 13:49-0400 Body weight 93.[address] Dago Emery Work Phone: 7(976)881-316904 [place] [address] 08-05-2022 13:49-0400 Diastolic blood pressure 83 mm[Hg] Dr. Dago Emery Work Phone: 9(443)912-128804 [place] [address] 08-05-2022 13:49-0400 Heart rate 45 /min Dr. Dago Emery Work Phone: 0(312)252-315704 [place] [address] 08-05-2022 13:49-0400 Respiratory rate 18 /min Dr. Dago Emery Work Phone: 5(745)060-038904 [place] [address] 08-05-2022 13:49-0400 SaO2% (BldA) [Mass fraction] 99 % Dr. Dago Emery Work Phone: [facility] 08-05-2022 13:49-0400 Systolic blood pressure 137 mm[Hg] Dr. Dago Emery Work Phone: [facility] 05-06-2022 14:19-0500 Body height 165.[address] Dago Emery Work Phone: [facility] 05-06-2022 14:19-0500 Body mass index (BMI) [Ratio] 35.5 kg/m2 Dr. Dago Emery Work Phone: 4(571)327-973704 [place] [address] 05-06-2022 14:19-0500 Body temperature 98.3 [degF] Dr. Dago Emery Work Phone: 7(177)912-191304 [place] [address] 05-06-2022 14:19-0500 Body weight 96.[address] Dago Emery Work Phone: [facility] 05-06-2022 14:19-0500 Diastolic blood pressure 72 mm[Hg] Dr. Dago Emery Work Phone: 3(349)854-311804 [place] [address] 05-06-2022 14:19-0500 Heart rate 46 /min Dr. Dago Emery Work Phone: [facility] 05-06-2022 14:19-0500 Respiratory rate 18 /min Dr. Dago Emery Work Phone: [facility] 05-06-2022 14:19-0500 SaO2% (BldA) [Mass fraction] 98 % Dr. Dago Emery Work Phone: [facility] 05-06-2022 14:19-0500 Systolic blood pressure 121 mm[Hg] Dr. Dago Emery Work Phone: [facility] 04-12-2022 08:38-0500 Diastolic blood pressure 94 mm[Hg] Dr. Dago Emery Work Phone: [facility] 04-12-2022 08:38-0500 Heart rate 60 /min Dr. Dago Emery Work Phone: [facility] 04-12-2022 08:38-0500 Respiratory rate 16 /min Dr. Dago Emery Work Phone: [facility] 04-12-2022 08:38-0500 SaO2% (BldA) [Mass fraction] 96 % Dr. Dago Emery Work Phone: [facility] 04-12-2022 08:38-0500 Systolic blood pressure 178 mm[Hg] Dr. Dago Emery Work Phone: [facility] 04-12-2022 08:33-0500 Body height 165.[address] Dago Emery Work Phone: [facility] 04-12-2022 08:33-0500 Body mass index (BMI) [Ratio] 36.3 kg/m2 Dr. Dago Emery Work Phone: [facility] 04-12-2022 08:33-0500 Body temperature 98.5 [degF] Dr. Dago Emery Work Phone: [facility] 04-12-2022 08:33-0500 Body weight 99.[address] Dago Emery Work Phone: [facility] 02-04-2022 14:20-0500 Body mass index (BMI) [Ratio] 34.4 kg/m2 Dr. Dago Emery Work Phone: [facility] 02-04-2022 14:20-0500 Body temperature 97.8 [degF] Dr. Dago Emery Work Phone: [facility] 02-04-2022 14:20-0500 Body weight 93.[address] Dago Emery Work Phone: [facility] 02-04-2022 14:20-0500 Diastolic blood pressure 79 mm[Hg] Dr. Dago Emery Work Phone: [facility] 02-04-2022 14:20-0500 Heart rate 51 /min Dr. Dago Emery Work Phone: [facility] 02-04-2022 14:20-0500 Respiratory rate 16 /min Dr. Dago Emery Work Phone: [facility] 02-04-2022 14:20-0500 SaO2% (BldA) [Mass fraction] 97 % Dr. Dago Emery Work Phone: [facility] 02-04-2022 14:20-0500 Systolic blood pressure 132 mm[Hg] Dr. Dago Emery Work Phone: [facility] 11-04-2021 13:59-0400 Body height 165.[address] Dago Emery Work Phone: [facility] Work Phone: 11-04-2021 13:59-0400 Body mass index (BMI) [Ratio] 34.4 kg/m2 Dr. Dago Emery Work Phone: [facility] Work Phone: 11-04-2021 13:59-0400 Body temperature 97.4 [degF] Dr. Dago Emery Work Phone: [facility] Work Phone: 11-04-2021 13:59-0400 Body weight [address] Dago Emery Work Phone: [facility] Work Phone: 11-04-2021 13:59-0400 Diastolic blood pressure 80 mm[Hg] Dr. Dago Emery Work Phone: [facility] Work Phone: 11-04-2021 13:59-0400 Heart rate 51 /min Dr. Dago Emery Work Phone: [facility] Work Phone: 11-04-2021 13:59-0400 Respiratory rate 16 /min Dr. Dago Emery Work Phone: [facility] Work Phone: 11-04-2021 13:59-0400 SaO2% (BldA) [Mass fraction] 97 % Dr. Dago Emery Work Phone: [facility] Work Phone: 11-04-2021 13:59-0400 Systolic blood pressure 130 mm[Hg] Dr. Dago Emery Work Phone: [facility] Work Phone: 04-25-2020 14:46-0500 Body mass index (BMI) [Ratio] 37.8 kg/m2 Dr. Dago Emery Work Phone: [facility] 04-25-2020 14:46-0500 Body temperature 98 [degF] Dr. Dago Emery Work Phone: [facility] 04-25-2020 14:46-0500 Body weight 99.[address] Dago Emery Work Phone: [facility] 04-25-2020 14:46-0500 Diastolic blood pressure 87 mm[Hg] Dr. Dago Emery Work Phone: [facility] 04-25-2020 14:46-0500 Heart rate 54 /min Dr. Dago Emery Work Phone: [facility] 04-25-2020 14:46-0500 Respiratory rate 17 /min Dr. Dago Emery Work Phone: [facility] 04-25-2020 14:46-0500 SaO2% (BldA) [Mass fraction] 97 % Dr. Dago Emery Work Phone: [facility] 04-25-2020 14:46-0500 Systolic blood pressure 155 mm[Hg] Dr. Dago Emery Work Phone: [facility] Encounters Encounter Date Encounter Type Care Provider Facility Start: 10-20-2024 Non-patient / Non-visit Dr. Sofia giang MD -[facility] Work Phone: Start: 10-18-2024 End: 10-21-2024 Evaluation and management [facility] Facility:[facility] Start: 10-18-2024 Non-patient / Non-visit Dr. Joselin Valente MD -[facility] Work Phone: Start: 10-17-2024 Non-patient / Non-visit Dr. Joselin Valente MD -[facility] Work Phone: Start: 10-16-2024 Non-patient / Non-visit Dr. Og UGALDE -[facility] Work Phone: Start: 10-16-2024 ambulatory Saulo Bullock Fac ility:[facility] Start: 10-11-[address] Cira Pate MD -[facility] Start: 10-11-2024 End: 10-11-2024 Patient encounter procedure Carolyn Ruvalcaba NP- -[facility] Work Phone: Start: 10-11-2024 End: 10-11-[address] Dago Emery MD Work Phone: [facility] Start: 09-20-2024 End: 09-20-[address] Omero Armas MD -[facility] Work Phone: Start: 09-20-2024 End: 09-20-[address] Omero Armas MD [facility] Start: 09-20-2024 End: 09-20-[address] Dago Emery MD Work Phone: [facility] Start: 08-08-2024 Encounter for other preprocedural examination [facility] Start: 08-01-2024 End: 08-01-2024 Non-patient / Non-visit [facility] Work Phone: Start: 08-01-2024 End: 08-01-[address] Dago Emery MD Work Phone: [facility] Work Phone: Start: 08-01-2024 End: 08-01-[address] Dago Emery MD -Pulmonary Services/Neurology Work Phone: Start: 07-31-2024 End: 08-01-[address] Dago Emery MD Work Phone: [facility] Work Phone: Start: 07-31-2024 End: 07-31-[address] Dago Emery MD -[facility] Start: 07-31-2024 End: 07-31-2024 ambulatory Dago [facility] [place] Facility:[facility] Start: 07-10-[address] Cira Pate MD -[facility] Start: 07-10-2024 End: 07-10-2024 Patient encounter procedure Carolyn Ruvalcaba NP-Jack -[facility] Work Phone: Start: 07-10-2024 End: 07-10-2024 ambulatory Dago [facility] [place] Facility:[facility] Start: 02-22-2024 End: 02-22-2024 ambulatory [facility]ago [facility] Facility:[facility] Start: 01-31-2024 End: 01-31-2024 ambulatory Dago Chi Ru[place] Facility:[facility] Start: 11-09-2023 End: 11-09-2023 ambulatory Dago Chi Rupert Facility:[facility] Start: 01-25-2023 End: 01-25-[address] Dago Emery Work Phone: [facility] Work Phone: Start: 01-25-2023 End: 01-25-[address] Dago Emery Work Phone: [facility]-Laboratory, Phy Office 3rd Flr Start: 11-04-[address] Dago hays Work Phone: [facility] Start: 11-04-2022 End: 11-04-[address] Dago Emery Work Phone: [facility] Work Phone: Start: 09-25-2022 End: 10-14-2022 Evaluation and management of inpatient Dr. Dago Emery Work Phone: [facility]-Transitional Care Unit Start: 09-04-2022 End: 09-04-[address] Dago Emery Work Phone: [facility] Work Phone: Start: 09-04-2022 End: 09-04-[address] Dago Emery Work Phone: [facility] Start: 08-05-2022 End: 08-05-[address] Dago Emery Work Phone: [facility] Start: 08-05-[address] Dago hays Work Phone: [facility] Start: 07-20-2022 End: 07-20-[address] Dago Emery Work Phone: [facility] Work Phone: Start: 07-20-2022 End: 07-20-[address] Dago Emery Work Phone: [facility]-Laboratory, Phy Office 3rd Prr Start: 05-06-[address] Dago hays Work Phone: [facility] Start: 05-06-2022 End: 05-06-[address] Dago Emery Work Phone: [facility] Start: 04-12-2022 End: 04-12-2022 Emergency department patient visit Dr. Dago Emery Work Phone: [facility]-Emergency Department Start: 02-04-[address] Dago hays Work Phone: [facility] Start: 02-04-2022 End: 02-04-[address] Dago Emery Work Phone: [facility] Start: 01-19-2022 End: 01-19-[address] Dago Emery Work Phone: [facility] Work Phone: Start: 01-19-2022 End: 01-19-[address] Dago Emery Work Phone: [facility]-Laboratory, Phy Office 3rd Flr Start: 11-04-[address] Dago hays Work Phone: [facility] Start: 11-04-2021 End: 11-04-[address] Dago Emery Work Phone: [facility] Procedures Date Procedure Procedure Detail Performing Clinician Start: 10-21-[address] Dago Emery MD Work Phone: Start: 10-17-2024 MRI of lower extremity Dr. Dago Emery MD Work Phone: Start: 10-17-2024 X-ray of ankle, thre e or more views Dr. Dago Emery MD Work Phone: Start: 10-16-2024 X-ray of knee, one o r two views Dr. Dago Emery MD Work Phone: Start: 10-16-2024 Fluoroscopic guidance Obi Emery MD Work Phone: Start: 10-16-2024 X-ray of knee, one o r two views Dr. Dago Emery MD Work Phone: Start: 10-16-2024 Total replacement of left knee joint Dr. Dago Emery MD Work Phone: Start: 10-11-[address] Dago Emery MD Work Phone: Start: 10-11-2024 Methicillin resistan t Staphylococcus aureus screening test Dr. Dago Emery MD Work Phone: Start: 08-01-2024 MRI of lower extremity Dr. Dago Emery MD Work Phone: Start: 07-31-2024 Vitamin D, 25-hydrox y measurement Dr. Dago Emery MD Work Phone: Comment on above: Vitamin D StatusDefi ciency: <20 ng/mL (50nmol/L)Insufficiency: 20-30 ng/mL (50-75 nmol/L)Sufficiency: 30-100 ng/mL (75-250 nmol/L)Toxicity: >100 ng/mL (>250 nmol/L) Start: 07-31-2024 Methicillin resistan t Staphylococcus aureus [...] Treatment Date Care Activity Detail Author Start: 10-21-2024 Patient discharge [facility] Start: 10-18-2024 Admission procedure [facility] Start: 10-18-2024 Care regimes management [facility] Start: 10-17-2024 [facility] Start: 10-16-2024 Application of intermittent pneumatic compression device [facility] Start: 10-16-2024 Following clinical pathway protocol [facility] Start: 10-16-2024 Provision of overbed trapeze [facility] Start: 10-16-2024 Ambulation therapy management [facility] Start: 10-16-2024 Assessment of risk of venous thromboembolism [facility] Start: 10-16-2024 Catheterization of vein [facility] Start: 10-16-2024 Exercises [facility] Start: 10-16-[address] [facility] Start: 10-16-2024 Procedure discontinued [facility] Start: 10-16-2024 Recommendation to continue with treatment [facility] Start: 10-16-2024 Referral to occupational therapist [facility] Start: 10-16-2024 Referral to service [facility] Start: 10-16-[address] [facility] Start: 10-16-2024 End: 10-16-2024 [facility] Start: 10-16-2024 Application of device [facility] Start: 10-16-2024 Application of elastic bandage [facility] Start: 10-16-2024 Introduction of urinary catheter [facility] Start: 10-16-2024 Measuring intake and output [facility] Start: 10-16-2024 Patient education [facility] Start: 10-16-2024 Provision of activity privileges [facility] Start: 10-16-2024 Wound care [facility] Start: 10-16-2024 Admission procedure [facility] Start: 10-16-2024 Consultation [facility] Start: 10-11-2024 CBC W Auto Differential panel - Blood [facility] Start: 10-11-2024 [facility] Start: 07-31-2024 Electrocardiographic procedure [facility] Start: 10-14-2022 Patient discharge [facility] Start: 10-13-[address] [facility] Start: 10-09-2022 Referral to service [facility] Start: 10-09-2022 [facility] Start: 10-04-2022 [facility] Start: 10-04-2022 [facility] Start: 09-26-2022 Developing a treatment plan [facility] Start: 09-26-[address] [facility] Start: 09-26-2022 Application of device [facility] Start: 09-25-2022 Wound care [facility] Start: 09-25-2022 Admission procedure [facility] Start: 09-25-2022 Measuring intake and output [facility] Start: 09-25-2022 Patient referral to dietitian [facility] Start: 09-25-2022 Referral to occupational therapist [facility] Start: 09-25-2022 Referral to service [facility] Start: 09-25-[address] [facility] Start: 09-25-2022 End: 09-25-2022 [facility] Start: 07-21-2018 [facility] Basic metabolic 2008 panel with ionized calcium - Serum or Plasma [facility] CBC W Auto Different ial panel - Blood [facility] Work Phone: CBC W Auto Different ial panel - Blood [facility] CBC W Auto Different ial panel - Blood [facility] CBC W Auto Different ial panel - Blood [facility] CBC W Auto Different ial panel - Blood [facility] CBC W Auto Different ial panel - Blood [facility] CBC W Auto Different ial panel - Blood [place] metabo lic 1999 panel - Serum or [facility] panel - Serum or Plasma [facility] Patient Education ED Meniscal In jury Knee Poss [facility] Work Phone: Patient referral [facility] Work Phone: [facility] Immunizations Immunization Date Immunization Notes Care Provider Fa [facility] 11-23-2020 Covid (Moderna) Dr. Dago Emery Work Phone: [facility] 10-26-2020 Covid (Moderna) Dr. Dago Emery Work Phone: [facility] 01-16-2020 influenza, injectabl e, quadrivalent, preservative free Dr. Dago Emery Work Phone: [facility] 11-23-[address] Dago Emery Work Phone: [facility] 09-07-[address] Dago Emery Work Phone: [facility] 01-12-2019 influenza, injectabl e, quadrivalent, preservative free Dr. Dago Emery Work Phone: [facility] 12-20-2008 pneumococcal vaccine , unspecified formulation Dr. Dago Emery Work Phone: [facility] 07-21-2008 pneumococcal polysaccharide vaccine, [address] Dago Emery Work Phone: [facility] Payers Date Payer Category Payer Self-pay [id number] 2018 Medicare [id number] 2018 Private Health Insurance [id number] Unknown [facility] PACKAGE PLAN [id number] Unknown [id number] Unknown [id number] Unknown [id number] Unknown [id number] Unknown [id number] [id number] Unknown [id number] [id number] Unknown [id number] [id number] Unknown [id number] [id number] Unknown [id number] Unknown [id number] [id number] Unknown [id number] Unknown [id number] Unknown [id number] Unknown [id number] Unknown [id number] Social History Date Type Detail Facility Start: 07-24-2020 End: 09-25-2022 Tobacco smoking status CAIS Unknown if ever smoked [facility] Start: 04-16-2014 None [facility] Start: 12-02-2018 Non-smoker [facility] Start: 1945 Sex Assigned At Female [facility] Start: 07-31-2024 End: 10-04-2024 Tobacco smoking status NHIS Never smoked tobacco (finding) [facility] Not [facility] Medical Equipment Procedure Code Equipment Code Equipment Origin al Text Equipment Identifier Dates ([id number]) Metal-backed pat jason prosthesis ()[id number] FDA Start: 09-23-2022 ([id number]) Coated knee femu r prosthesis ()[id number] [id number] FDA Start: 09-23-2022 ([id number]) Coated knee tibi a prosthesis ()[id number] [id number] FDA Start: 09-23-2022 ([id number]) Tibial insert ()[id number]( [id number] FDA Start: 09-23-2022 ([id number]) Uncoated knee fe mur prosthesis, metallic ()[id number] [id number] FDA Start: 10-16-2024 Tibial insert ()[id number] [id number] FDA Start: 10-16-2024 ([id number]) Polyethylene pat jason prosthesis ()[id number] [id number] FDA Start: 10-16-2024 (070463913) Uncoated knee ti jitendra prosthesis, metallic ()[id number] [id number] FDA Start: 10-16-2024 ([id number]) Knee femur stem prosthesis ()[id number] [id number] FDA Start: 10-16-2024 ([id number]) Knee femur stem prosthesis ()[id number] [id number] FDA Start: 10-16-2024 ([id number]) Polymer orthopae dic cement restrictor, non-bioabsorbable, sterile ()[id number] [id number] FDA Start: 10-16-2024 Orthopaedic ceme nt, non-antimicrobial ()[id number] [id number] FDA Start: 10-16-2024 Goals Date Patient Goal Desired Activity /State Functional Status Date Assessment Result Facility 10-21-2024 Functional status Stand and pivot [facility] Work Phone: 10-14-2022 Functional status Activity Ability Indepe ndent [facility] Work Phone: 10-13-2022 Functional status Ambulates;Up ad aldo [facility] Work Phone: 10-12-2022 Functional status Tolerates Activity Well [facility] Work Phone: Mental Status Date Assessment Result Facility 10-21-2024 Cognitive function Voice/Name [facility] Work Phone: 10-14-2022 Cognitive function Voice/Name [facility] Work Phone: 10-07-2022 Cognitive function Appropriate [facility] Work Phone: Clinical Notes 07-10-2024 to 10-21-2024 Note Date & Type Note Facility 10-21-2024 Discharge summary Note Date/Time October 21, 2024 11:05am [facility] Medical Records Department [address] [place] [address] Discharge Summary 10/21/24 Roverto MR#: [id number] Acct: [id number] Name: BERNICE JUAN Rep #:[id number] : 1945 79 From: Nela CORNELIUS PCP: Dr. Dago Emery MD Status:ADM I N Location: [facility] [id number] Providers Date of Admission: 10/18/24 Primary Care Physician: Dr. Dago Emery MD Consultations 10/16/24 14:53 Consult: Hospitalist Routine Consulting Provider: [facility] Reason for Consult: post op med management EMERGENT Consult: No MD Notified: Yes Date Notified: 10/16/24 Time Notified: 19:46 Method of Notification: Text Reason For Visit: ERAS, ROBOTIC ASSISTED LEFT TOTAL KNEE ARTHROPLAST Diagnosis Discharge Diagnosis (1) Status post total left knee replacement: Status: Acute Code(s): Z96.652 - Presence of left artificial knee joint Plan: Status post robotic assisted left total knee replacement, removal left tibial nail, removal for interlocking screws postop day 5. Patient also has acute distal tibial metadiaphyseal junction fracture left lower extremity 1. DVT prophylaxis: Patient will be taking aspirin 81 mg twice daily for 4 weeks postoperatively. Patient will be wearing JUDE hose for 2 weeks postoperatively. 2. Pain medications: Patient will be on Tylenol 1000 mg every 8 hours. Patientwill be taking oxycodone as needed for postoperative pain medications. 3. Constipation: Patient has been placed on MiraLAX by medicine. Patient has also been drinking prune juice and is getting boost today. Patient states that her appetite is much better today. Patient states that is not unusual for her not to have a bowel movement when she is not eating. Patient states that her nausea and dizziness has gotten much better today. Patient still has Zofran to use as needed. 4. Left distal tibia fracture: CT images were reviewed with Dr. Rodriguez from October 17, 2024. CT did show an acute distal tibia fracture without involvement of articular surface. Patient is now using a walking boot and will be toe-touchweightbearing with walker for 6 weeks postoperatively. 5. Physical therapy: Patient will now be toe-touch weightbearing on operative side with a walker. She will be toe-touch weightbearing for 6 weeks postoperatively. 6. H&H: 8.7/25.5. Hemoglobin did drop from 9.1 yesterday. Patient is currently following anemia protocol and taking ferrous sulfate and folic acid daily. This was discussed with medicine who stated likely from continued blood draws and getting fluids yesterday. 7. Incentive spirometry: Patient was instructed to continue to use the incentive spirometer every hour that they are awake for the first week to exercise the lung and decrease risk of postoperative lung infection 8. Patient is to follow-up for postoperative instructions 9. Doxycycline: Patient will be on doxycycline for 2 weeks postoperatively due to nature of removal surgery. Patient was educated on the risk of sunburn whiletaking doxycycline. Patient was educated to take a probiotic while taking doxycycline. Patient voiced understanding. 10. Continue postoperative medical treatment per medicine: Case was discussed with medicine. 11. Hyponatremia: Looks to have resolved with sodium level now at 135. This was discussed with medicine. 12. Anxiety: Patient states that her anxiety has gotten much better. Patient never actually received hydroxyzine yesterday. Hydroxyzine was discontinued by medicine today. 11. Disposition: At this time I do feel patient is ready for discharge to [facility] facility. Patient states that she feels much more comfortable on her feet and feels that she is getting stronger. Patient's nausea and dizziness has resolved today. Patient states that her appetite is much better. Patient has not yet had a bowel movement. There is a bed available at the transitional care unit today. Patient will be okay for discharge if pain maintains controlled, continues to work with physical therapy, and is okay per medicine doctors instructions. Medicine does feel patient is medically stable at this point. We will plan to have patient get a CBC and BMP in 1 week at the transitional care unit to continue to monitor hemoglobin and hematocrit. Patient was educated that there would be an order to get CBC and BMP and to follow-up with primary care provider to continue to manage chronic anemia. Patient's discharge paperwork will be filled out today. Patient's narcotic painmedication will be sent with her to the TCU. Patient does have 2-week follow-upvisit scheduled in office. Patient was encouraged to call with any questions, concerns, new problems. This dictation was created using voice recognition software. Phonetic and/or grammatical errors may exist. Medications at Discharge Home Medications levothyroxine 50 mcg tablet (Levoxyl) 50 mcg PO DAILY thyroid 08/04/13 losartan 100 mg tablet 100 mg PO DAILY bp 06/06/18 amlodipine 5 mg tablet 5 mg PO DAILY bp 07/21/18 cholecalciferol (vitamin D3) 25 mcg (1,000 unit) tablet 1,000 unit PO DAILY bones 10/26/19 atenolol 50 mg tablet 50 mg PO DAILY@0800 30 days #30 tabs 10/09/22 hydroxyurea 500 mg capsule 1,000 mg (2 x 500 mg) PO MOTUTHFRSA #100 caps 10/02/24 acetaminophen 500 mg tablet 1,000 mg PO BID PRN inflammation 10/04/24 acetaminophen 500 mg tablet 1,000 mg (2 x 500 mg) PO Q8 #0 tabs 10/21/24 aspirin 81 mg capsule 81 mg PO BIDCM #60 caps 10/21/24 doxycycline monohydrate 100 mg capsule 100 mg PO Q12 9 days #0 caps 10/21/24 famotidine 20 mg tablet 20 mg PO DAILY 30 days #0 tabs 10/21/24 ferrous sulfate 325 mg (65 mg iron) tablet (FeroSul) 325 mg PO 1200,1700 20 days#0 tabs 10/21/24 folic acid 1 mg tablet 1 mg PO BREAKFAST 20 days #0 tabs 10/21/24 ondansetron HCl (PF) 4 mg/2 mL injection solution 4 mg (2 mL) IV Q6H PRN PRN Nausea/Vomiting 3 days #0 mL 10/21/24 oxycodone 5 mg tablet 5 - 10 mg (1 - 2 x 5 mg) PO Q4H PRN PRN Pain Score 4-10 7 days #42 tabs 10/21/24 Hospital Course Operations total knee replacement (Left total knee replacement, removal left tibial nail, removal interlocking screws) Summary of Care Provided Hospital Course: Patient is an 79-year-old female who presented for an elective left total knee replacement and removal of left tibial nail as well as interlocking screws. Patient will be on aspirin 81 mg twice daily for 4 weeks postoperatively. Patient will be on Tylenol and oxycodone as needed for pain control. Patient has been having trouble having a bowel movement. Patient was placed on MiraLAX by medicine. Patient has been drinking prune juice and boost to help with bowelmovements. It was found on October 17, [address] scan that was reviewed with Dr. Rodriguez that patient had an acute distal tibia fracture without involvement of the articular surface. Patient was then placed in a pneumatic foam walking boot and will be toe-touch weightbearing with a walker for 6 weeks postoperatively. Patient has been working with physical therapy. Patient's hemoglobin has been low so patient was placed on our anemia protocol which is ferrous sulfate and folic acid daily. This was discussed with medicine who feltthat patient was medically stable. Patient did have hyponatremia as well and was given fluids by medicine. Patient's hyponatremia has resolved. Patient's low hemoglobin is likely due to receiving fluids and continued blood draws. Patient was sent with a outpatient lab form to receive CBC and BMP in 1 week to ensure hemoglobin and hematocrit are improving. Patient was encouraged to follow-up with primary care provider to manage anemia. Due to nature of patient's surgery she is on doxycycline for 2 weeks postoperatively. Patient did have 1 episode of an anxiety attack in the hospital. Patient was able to beconsoled after taking her oxycodone. Patient's pain has maintained controlled at this point. Patient was having some nausea and dizziness which patient states seems to have resolved today. Case is discussed with medicine who statedthat patient is medically stable at this point. Patient does have a bed available at the TCU at this time. Patient has 2-week visit scheduled on our office. Patient will get leonid removed at that time. Patient was encouraged to call with any questions, concerns, new problems. Weight / BMI Weight Weight: 85 kg Body Mass Index (BMI) 31.1 ABG / Lab / Microbiology Data 10/21/24 05:45 10/21/24 05:45 Laboratory: Laboratory Results - last 24 hr 10/21/24 05:45: WBC 5.4, RBC 2.30 L, Hgb 8.7 L, Hct 25.5 L, MCV 110.9 H, MCH 37.8 H, MCHC 34.1, RDW Std Deviation 64.2 H, RDW Coeff of Maury 15.8 H, Plt Count 224, MPV 10.8, Immature Gran % (Auto) 0.600, Neut % (Auto) 54.7, Lymph % (Auto) 27.2, Cameron % (Auto) 15.2 H, Eos % (Auto) 1.9, Baso % (Auto) 0.4, Absolute Neuts (auto) 3.0, Absolute Lymphs (auto) 1.47, Nucleated RBC % 0, Sodium 135, Potassium 3.8, Chloride 103, Carbon Dioxide 21.9, Anion Gap 10, BUN 25 H, Creatinine 1.04, Estim Creat Clear Calc 45.68 L, Est GFR (MDRD) Non-Af 54 L, BUN/Creatinine Ratio 23.7 H, Glucose 86, Calcium 8.5 Microbiology: Microbiology 10/11/24 14:20 Nasal Secretion Nasal Screen MRSA/MSSA - Final 07/31/24 14:25 Swab (Method) Nasal Screen MRSA/MSSA - Final D/C Instructions DC O2, CPAP, BIPAP Needs Home O2 Discharge instructions: No Meaningful Use Info Meaningful Use Meaningful Use Diagnoses (Choose all that apply): None applicable Discharge Plan Admission Admit Date/Time: 10/18/24 13:14 Attending Provider: Geo Rodriguez Primary Care Provider: Dago Emery Chi Consulting Providers: Sofia Carvajal; Juliane Villa Discharge Orders/Prescriptions Prescriptions: New acetaminophen 500 mg Tablet 1,000 mg PO Q8 Qty: 0 0RF aspirin 81 mg capsule 81 mg PO BIDCM Qty: 60 0RF Rx Instructions: Take for 4 weeks postoperatively. famotidine 20 mg Tablet 20 mg PO DAILY 30 Days Qty: 0 0RF doxycycline monohydrate 100 mg Capsule 100 mg PO Q12 9 Days Qty: 0 0RF ferrous sulfate [FeroSul] 325 mg (65 mg iron) Tablet 325 mg PO 1200,1700 20 Days Qty: 0 0RF folic acid 1 mg Tablet 1 mg PO BREAKFAST 20 Days Qty: 0 0RF ondansetron HCl (PF) 4 mg/2 mL Solution 4 mg IV Q6H PRN PRN (Reason: Nausea/Vomiting) 3 Days Qty: 0 0RF oxycodone 5 mg Tablet 5 - 10 mg PO Q4H PRN PRN (Reason: Pain Score 4-10) 7 Days Qty: 42 0RF Continued levothyroxine [Levoxyl] 50 MCG tablet 50 mcg PO DAILY Patient Comments: THYROID losartan 100 MG tablet 100 mg PO DAILY Patient Comments: take 1 tablet by mouth once daily amlodipine 5 MG tablet 5 mg PO DAILY cholecalciferol (vitamin D3) 1,000 UNIT tablet 1,000 unit PO DAILY atenolol 50 mg Tablet 50 mg PO DAILY@0800 30 Days Qty: 30 0RF hydroxyurea 500 mg capsule 1,000 mg PO MOTUTHFRSA Qty: 100 4RF Rx Instructions: does not take on wednesdays or sundays Discontinued aspirin 81 mg tablet,chewable 81 mg PO DAILY No Action acetaminophen 500 mg Tablet 1,000 mg PO BID PRN (Reason: inflammation) Rx Instructions: Do not take more than 3000 mg Tylenol in a 24-hour period. Other Ambulatory Orders: 12 Lead EKG (Routine) Location: None Selected Ordered By: Dr. Geo Rodriguez Basic Metabolic Profile (BMP) (Routine) Timeframe: 1 Week Facility: [facility] - Location: Laboratory Ordered By: Nela Casanova CBC W/Diff, Automated (Routine) Timeframe: 1 Week Facility: [facility] - Location: Laboratory Ordered By: Nela Casanova Referrals / Follow Up: Dago Emery Chi, MD [Primary Care Provider] - Disposition Disposition (needs filled in before D/C Order can be placed): Inpatient Rehab Unit/Facility 10/21/24 1105 <Electronically signed by Nela CORNELIUS> Cosigner Signature (if applicable): CC: ADRYAN Holland; Dr. Dago Emery MD~ Signed [facility] Work Phone: 1(489) 621-215108-02-2025 Discharge summary Author Nela Casanova [facility] Note Date/Time October 21, 2024 10: 59am [facility] Medical Records Department [address] [place] [address] Transfer to [facility] MR#: [id number] Acct: [id number] Name: BERNICE JUAN Rep #:[id number] : 1945 79 From: Nela CORNELIUS PCP: Dr. Dago Emery MD Status:ADM I N Certification of patient admission REQUIRED AT TIME OF ADMISSION. I CERTIFY THAT POST-HOSPITAL ECF SERVICES ARE REQUIRED TO BE GIVEN ON AN IN-PATIENT BASIS BECAUSE OF THE ABOVE NAMED PATIENT'S NEED FOR [facility] CARE ON A CONTINUING BASIS FOR THE CONDITION(S) FOR WHICH HE/SHE WAS RECEIVING IN-PATIENT HOSPITAL SERVICES PRIOR TO HIS/HER TRANSFER TO THE [facility]. 10/21/24 1059<Electronically signed by Nela CORNELIUS> Diet Diet Order/Speech Therapy: INPATIENT Hospital Diet / Speech Therapy Order(s) 10/17/24 05:37 Diet: Regular - General Routine Orders/Code Status Routine Lab Work: CBC (Drawl CBC and BMP in 1 week to continue following postoperative anemia. Follow-up with primary care provider to manage chronic anemia) and BMP DC O2, CPAP, BIPAP needs Home O2 Discharge instructions: No Wound(s) LEFT KNEE: Wound Type: Surgical Incision (Left knee total knee replacement, removal left tibial nail, removal for interlocking screws. May remove dressing on 10/21/2024. If incision is clean, dry, intact can leave open to air. If drainagecan do dry dressing changes. No soaking, submerging, lotions, salves, oils overincision for 6 weeks ) Therapies Weight Bearing: Toe-touch weight bearing (Patient is toe-touch weightbearing in pneumatic foam walking boot with walker due to acute distal tibial metadiaphyseal junction fracture left lower extremity.) Extremity Affected:: Left Lower Physical Therapy: Eval and Treat (Physical therapy daily. Patient is toe-touch weightbearing on operative leg and pneumatic foam walking boot with walker.) Occupational Therapy: Eval and Treat Speech Therapy: Eval and Treat Problem/Diagnosis (1) Status post total left knee replacement: Status: Acute Code(s): Z96.652 - Presence of left artificial knee joint Plan: Status post robotic assisted left total knee replacement, removal left tibial nail, removal for interlocking screws postop day 5. Patient also has acute distaltibial metadiaphyseal junction fracture left lower extremity 1. DVT prophylaxis: Patient will be taking aspirin 81 mg twice daily for 4 weeks postoperatively. Patient will be wearing JUDE hose for 2 weeks postoperatively. 2. Pain medications: Patient will be on Tylenol 1000 mg every 8 hours. Patientwill be taking oxycodone as needed for postoperative pain medications. 3. Constipation: Patient has been placed on MiraLAX by medicine. Patient has also been drinking prune juice and is getting boost today. Patient states that her appetite is much better today. Patient states that is not unusual for her not to have a bowel movement when she is not eating. Patient states that her nausea and dizziness has gotten much better today. Patient still has Zofran to use as needed. 4. Left distal tibia fracture: CT images were reviewed with Dr. Rodriguez from October 17, 2024. CT did show an acute distal tibia fracture without involvement of articular surface. Patient is now using a walking boot and will be toe-touchweightbearing with walker for 6 weeks postoperatively. 5. Physical therapy: Patient will now be toe-touch weightbearing on operative side with a walker. She will be toe-touch weightbearing for 6 weeks postoperatively. 6. H&H: 8.7/25.5. Hemoglobin did drop from 9.1 yesterday. Patient is currently following anemia protocol and taking ferrous sulfate and folic acid daily. This was discussed with medicine who stated likely from continued blood draws and getting fluids yesterday. 7. Incentive spirometry: Patient was instructed to continue to use the incentive spirometer every hour that they are awake for the first week to exercise the lung and decrease risk of postoperative lung infection 8. Patient is to follow-up for postoperative instructions 9. Doxycycline: Patient will be on doxycycline for 2 weeks postoperatively due to nature of removal surgery. Patient was educated on the risk of sunburn whiletaking doxycycline. Patient was educated to take a probiotic while taking doxycycline. Patient voiced understanding. 10. Continue postoperative medical treatment per medicine: Case was discussed with medicine. 11. Hyponatremia: Looks to have resolved with sodium level now at 135. This was discussed with medicine. 12. Anxiety: Patient states that her anxiety has gotten much better. Patient never actually received hydroxyzine yesterday. Hydroxyzine was discontinued by medicine today. 11. Disposition: At this time I do feel patient is ready for discharge to [facility]. Patient states that she feels much more comfortable on her feet and feels that she is getting stronger. Patient's nausea and dizzinesshas resolved today. Patient states that her appetite is much better. Patient has not yet had a bowel movement. There is a bed available at the transitional care unit today. Patient will be okay for discharge if pain maintains controlled, continues to work with physical therapy, and is okay per medicine doctors instructions. Medicine does feel patient is medically stable at this point. We will plan to have patient get a CBC and BMP in 1 week at the transitional care unit to continue to monitor hemoglobin and hematocrit. Patient was educated that there would be an order to get CBC and BMP and to follow-up with primary care provider to continue to manage chronic anemia. Patient's discharge paperwork will be filled out today. Patient's narcotic painmedication will be sent with her to the TCU. Patient does have 2-week follow-upvisit scheduled in office. Patient was encouraged to call with any questions, concerns, new problems. This dictation was created using voice recognition software. Phonetic and/or grammatical errors may exist. Allergies/Procedures Done in Hospital Allergies promethazine HCl (From Phenergan) Allergy (Severe, Verified 10/16/24 11:13) Other heightens engery (zing) Penicillins Adverse Reaction (Severe, Verified 10/16/24 11:13) Swelling red dye Adverse Reaction (Severe, Verified 10/16/24 11:13) Unknown mouth to droop Tetanus Vaccines and Toxoid Adverse Reaction (Intermediate, Verified 10/16/24 11:13) NEEDS FOLLOW-UP Type of Care/Length of Stay Estimated LOS: Convalescent Care Less Than 30 days Type of Care Needed: Skilled Rehab Potential: Good Prognosis: Good Additional Orders/Day of Discharge Day of Discharge: 10/21/24 Discharge Plan Admission Admit Date/Time: 10/18/24 13:14 Attending Provider: Geo Rodriguez Primary Care Provider: Dago Emery [employer] Providers: Sofia Carvajal; Juliane Villa Discharge Orders/Prescriptions Prescriptions: New acetaminophen 500 mg Tablet 1,000 mg PO Q8 Qty: 0 0RF aspirin 81 mg capsule 81 mg PO BIDCM Qty: 60 0RF Rx Instructions: Take for 4 weeks postoperatively. famotidine 20 mg Tablet 20 mg PO DAILY 30 Days Qty: 0 0RF doxycycline monohydrate 100 mg Capsule 100 mg PO Q12 9 Days Qty: 0 0RF ferrous sulfate [FeroSul] 325 mg (65 mg iron) Tablet 325 mg PO 1200,1700 20 Days Qty: 0 0RF folic acid 1 mg Tablet 1 mg PO BREAKFAST 20 Days Qty: 0 0RF ondansetron HCl (PF) 4 mg/2 mL Solution 4 mg IV Q6H PRN PRN (Reason: Nausea/Vomiting) 3 Days Qty: 0 0RF oxycodone 5 mg Tablet 5 - 10 mg PO Q4H PRN PRN (Reason: Pain Score 4-10) 7 Days Qty: 42 0RF Continued levothyroxine [Levoxyl] 50 MCG tablet 50 mcg PO DAILY Patient Comments: THYROID losartan 100 MG tablet 100 mg PO DAILY Patient Comments: take 1 tablet by mouth once daily amlodipine 5 MG tablet 5 mg PO DAILY cholecalciferol (vitamin D3) 1,000 UNIT tablet 1,000 unit PO DAILY atenolol 50 mg Tablet 50 mg PO DAILY@0800 30 Days Qty: 30 0RF hydroxyurea 500 mg capsule 1,000 mg PO MOTUTHFRSA Qty: 100 4RF Rx Instructions: does not take on wednesdays or sundays Discontinued aspirin 81 mg tablet,chewable 81 mg PO DAILY No Action acetaminophen 500 mg Tablet 1,000 mg PO BID PRN (Reason: inflammation) Rx Instructions: Do not take more than 3000 mg Tylenol in a 24-hour period. Other Ambulatory Orders: 12 Lead EKG (Routine) Location: None Selected Ordered By: Dr. Geo Rodriguez Basic Metabolic Profile (BMP) (Routine) Timeframe: 1 Week Facility: [facility] - Location: Laboratory Ordered By: Nela Casanova CBC W/Diff, Automated (Routine) Timeframe: 1 Week Facility: [facility] - Location: Laboratory Ordered By: Nela Casanova Referrals / Follow Up: Dago Emery Chi, MD [Primary Care Provider] - Disposition Disposition (needs filled in before D/C Order can be placed): Inpatient Rehab Unit/Facility 10/21/24 1059 <Electronically signed by Nela CORNELIUS> Cosigner Signature (if applicable): CC: Dr. Juliane Villa MD; Dr. Sofia Carvajal MD; Dr. Dago Emery MD ~ [facility] Work Phone: [phone] 301-161108-02-2025 Progress note Author Nela Casanova [facility] Note Date/Time October 21, 2024 10: 33am [facility] Medical Records Department [address] [place] [address] Progress Note - Orthopedic 10/21/24 1022 MR#: [id number] Acct: [id number] Name: BERNICE JUAN Rep #:[id number] : 1945 79 From: Nela CORNELIUS PCP: Dr. Dago Emery MD Status:ADM I N Location: [facility] [id number] Subjective Subjective Patient is sitting comfortably in bed. Patient states that today she is feelingmuch better. Patient states that she is feeling much stronger on her feet and much stronger with walking with a walker. Patient states that she is much less anxious today. Patient states that her pain is controlled today. Patient states that her appetite is much better. Patient states she has not yet had a bowel movement but feels like she could. Patient states she will continue to drink her prune juice and boost. Patient states that she is doing well with physical therapy being toe- touch weightbearing on her operative leg with a walker. Patient denies any shortness of breath, chest pain, calf pain. Patientdenies any fever, chills, signs of infection. Patient denies any new numbness or tingling. Patient denies any adverse events overnight. Objective Data Objective Data Vital Signs: Vital Signs Temp Pulse Resp BP Pulse Ox O2 Del Method O2 Flow Rate 98.0 F 70 18 136/69 H 96 Room Air 2 10/21/24 08:03 10/21/24 08:07 10/21/24 08:03 10/21/24 08:03 10/21/24 08:03 10/21/24 08:03 10/16/24 22:13 Oxygen Flow Rate (L/min) 2 Oxygen Delivery Method Room Air Weight: 85 kg Body Mass Index (BMI) 31.1 Intake & Output: Intake and Output for Last 24 Hours 10/19/24 10/20/24 10/21/24 23:59 23:59 23:59 Intake Total 2200 / 2200 1943.75 / 2143.75 400 / 400 Output Total 1550 / 1550 200 / 200 Balance 2200 / 2200 393.75 / 593.75 200 / 200 Lab / Micro Data 10/21/24 05:45 10/21/24 05:45 Labs: Laboratory Results - last 24 hr 10/21/24 05:45: WBC 5.4, RBC 2.30 L, Hgb 8.7 L, Hct 25.5 L, MCV 110.9 H, MCH 37.8 H, MCHC 34.1, RDW Std Deviation 64.2 H, RDW Coeff of Maury 15.8 H, Plt Count 224, MPV 10.8, Immature Gran % (Auto) 0.600, Neut % (Auto) 54.7, Lymph % (Auto) 27.2, Cameron % (Auto) 15.2 H, Eos % (Auto) 1.9, Baso % (Auto) 0.4, Absolute Neuts (auto) 3.0, Absolute Lymphs (auto) 1.47, Nucleated RBC % 0, Sodium 135, Potassium 3.8, Chloride 103, Carbon Dioxide 21.9, Anion Gap 10, BUN 25 H, Creatinine 1.04, Estim Creat Clear Calc 45.68 L, Est GFR (MDRD) Non-Af 54 L, BUN/Creatinine Ratio 23.7 H, Glucose 86, Calcium 8.5 Micro: Microbiology 10/11/24 14:20 Nasal Secretion Nasal Screen MRSA/MSSA - Final 07/31/24 14:25 Swab (Method) Nasal Screen MRSA/MSSA - Final Physical Exam Narrative Vital signs stable. JUDE hose in place bilaterally. Walking boot in place on operative foot Stable distal one third drainage on Mepilex dressing. Stable distal pin site drainage. Scott wrap in place on operative leg. Dorsiflexion and plantarflexion are performed without pain or restriction. Sensation intact to light touch. Neurovascular intact overall. Patient states that her skin feels sore on her bilateral calves which is nothingnew and she has had it for about 2 years. Negative Homans bilaterally. Const alert, oriented x3 and no apparent distress Assessment & Plan Assessment/Plan (1) Status post total left knee replacement: PLAN: Status post robotic assisted left total knee replacement, removal left tibial nail, removal for interlocking screws postop day 5. Patient also has acute distal tibial metadiaphyseal junction fracture left lower extremity 1. DVT prophylaxis: Patient will be taking aspirin 81 mg twice daily for 4 weeks postoperatively. Patient will be wearing JUDE hose for 2 weeks postoperatively. 2. Pain medications: Patient will be on Tylenol 1000 mg every 8 hours. Patientwill be taking oxycodone as needed for postoperative pain medications. 3. Constipation: Patient has been placed on MiraLAX by medicine. Patient has also been drinking prune juice and is getting boost today. Patient states that her appetite is much better today. Patient states that is not unusual for her not to have a bowel movement when she is not eating. Patient states that her nausea and dizziness has gotten much better today. Patient still has Zofran to use as needed. 4. Left distal tibia fracture: CT images were reviewed with Dr. Rodriguez from October 17, 2024. CT did show an acute distal tibia fracture without involvement of articular surface. Patient is now using a walking boot and will be toe-touchweightbearing with walker for 6 weeks postoperatively. 5. Physical therapy: Patient will now be toe-touch weightbearing on operative side with a walker. She will be toe-touch weightbearing for 6 weeks postoperatively. 6. H&H: 8.7/25.5. Hemoglobin did drop from 9.1 yesterday. Patient is currently following anemia protocol and taking ferrous sulfate and folic acid daily. This was discussed with medicine who stated likely from continued blood draws and getting fluids yesterday. 7. Incentive spirometry: Patient was instructed to continue to use the incentive spirometer every hour that they are awake for the first week to exercise the lung and decrease risk of postoperative lung infection 8. Patient is to follow-up for postoperative instructions 9. Doxycycline: Patient will be on doxycycline for 2 weeks postoperatively due to nature of removal surgery. Patient was educated on the risk of sunburn whiletaking doxycycline. Patient was educated to take a probiotic while taking doxycycline. Patient voiced understanding. 10. Continue postoperative medical treatment per medicine: Case was discussed with medicine. 11. Hyponatremia: Looks to have resolved with sodium level now at 135. This was discussed with medicine. 12. Anxiety: Patient states that her anxiety has gotten much better. Patient never actually received hydroxyzine yesterday. Hydroxyzine was discontinued by medicine today. 11. Disposition: At this time I do feel patient is ready for discharge to [facility]. Patient states that she feels much more comfortable on her feet and feels that she is getting stronger. Patient's nausea and dizziness has resolved today. Patient states that her appetite is much better. Patient has not yet had a bowel movement. There is a bed available at the transitional care unit today. Patient will be okay for discharge if pain maintains controlled, continues to work with physical therapy, and is okay per medicine doctors instructions. Medicine does feel patient is medically stable at this point. We will plan to have patient get a CBC and BMP in 1 week at the transitional care unit to continue to monitor hemoglobin and hematocrit. Patient was educated that there would be an order to get CBC and BMP and to follow-up with primary care provider to continue to manage chronic anemia. Patient's discharge paperwork will be filled out today. Patient's narcotic painmedication will be sent with her to the TCU. Patient does have 2-week follow-upvisit scheduled in office. Patient was encouraged to call with any questions, concerns, new problems. This dictation was created using voice recognition software. Phonetic and/or grammatical errors may exist. 10/21/24 1033 <Electronically signed by Nela CORNELIUS> Cosigner Signature (if applicable): CC: ~ Signed [facility] Work Phone: [phone] 398-319808-02-2025 Discharge summary [facility] Medical Records Department [address] [place] [id number] Discharge Summary 10/21/24 1100 MR#: [id number] Acct: [id number] Name: BERNICE JUAN Rep #:[id number] : 1945 79 From: Nela CORNELIUS PCP: Dr. Dago Emery MD Status:ADM I N [id number] Prov[facility] Date of Admission: 10/18/24 Primary Care Physician: Dr. Dago Emery MD Consultations 10/16/24 14:53 Consult: Hospitalist Routine Consulting Provider: [facility] Reason for Consult: post op med management EMERGENT Consult: No MD Notified: Yes Date Notified: 10/16/24 Time Notified: 19:46 Method of Notification: Text Reason For Visit: ERAS, ROBOTIC ASSISTED LEFT TOTAL KNEE ARTHROPLAST Diagnosis Discharge Diagnosis (1) Status post total left knee replacement: Status: Acute Code(s): Z96.652 - Presence of left artificial knee joint Plan: Status post robotic assisted left total knee replacement, removal left tibial nail, removal for interlocking screws postop day 5. Patient also has acute distal tibial metadiaphyseal junction fractureleft lower extremity 1. DVT prophylaxis: Patient will be taking aspirin 81 mg twice daily for 4 weeks postoperatively. Patient will be wearing JUDE hose for 2 weeks postoperatively. 2. Pain medications: Patient will be on Tylenol 1000 mg every 8 hours. Patientwill be taking oxycodone as needed for postoperative pain medications. 3. Constipation: Patient has been placed on MiraLAX by medicine. Patient has also been drinking prune juice and is getting boost today. Patient states that her appetite is much better today. Patient states that is not unusual for her not to have a bowel movement when she is not eating. Patient states that her nausea and dizziness has gotten much better today. Patient still has Zofran to use as needed. 4. Left distal tibia fracture: CT images were reviewed with Dr. Rodriguez from October 17, 2024. CT did show an acute distal tibia fracture without involvement of articular surface. Patient is now using a walking boot and will be toe- touchweightbearing with walker for 6 weeks postoperatively. 5. Physical therapy: Patient will now be toe-touch weightbearing on operative side with a walker. She will be toe-touch weightbearing for 6 weeks postoperatively. 6. H&H: 8.7/25.5. Hemoglobin did drop from 9.1 yesterday. Patient is currently following anemiaprotocol and taking ferrous sulfate and folic acid daily. This was discussed with medicine who stated likely from continued blood draws and getting fluids yesterday. 7. Incentive spirometry: Patient was instructed to continue to use the incentive spirometer every hour that they are awake for the first week to exercise the lung and decrease risk of postoperative lung infection 8. Patient is to follow-up for postoperative instructions 9. Doxycycline: Patient will be on doxycycline for 2 weeks postoperatively due to nature of removalsurgery. Patient was educated on the risk of sunburn whiletaking doxycycline. Patient was educated to take a probiotic while taking doxycycline. Patient voiced understanding. 10. Continue postoperative medical treatment per medicine: Case was discussed with medicine. 11. Hyponatremia: Looks to have resolved with sodium level now at 135. This was discussed with medicine. 12. Anxiety: Patient states that her anxiety has gotten much better. Patient never actually received hydroxyzine yesterday. Hydroxyzine was discontinued by medicine today. 11. Disposition: At this time I do feel patient is ready for discharge to [facility].Patient states that she feels much more comfortable on her feet and feels that she is getting stronger. Patient's nausea and dizziness has resolved today. Patient states that her appetite is much better. Patient has not yet had a bowel movement. There is a bed available at the transitional care unit today. Patient will be okay for discharge if pain maintains controlled, continues to work with physical therapy, and is okay per medicine doctors instructions. Medicine does feel patient is medically stable at this point. We will plan to have patient get a CBC and BMP in 1 week at the transitionalcare unit to continue to monitor hemoglobin and hematocrit. Patient was educated that there would be an order to get CBC and BMP and to follow-up with primary care provider to continue to manage chronic anemia. Patient's discharge paperwork will be filled out today. Patient's narcotic painmedication will be sent with her to the TCU. Patient does have 2-week follow-upvisit scheduled in office. Patient was encouraged to call with any questions, concerns, new problems. This dictation was created using voice recognition software. Phonetic and/or grammatical errors mayexist. Medications at Discharge Home Medications levothyroxine 50 mcg tablet (Levoxyl) 50 mcg PO DAILY thyroid 08/04/13 losartan 100 mg tablet 100 mg PO DAILY bp 06/06/18 amlodipine 5 mg tablet 5 mg PO DAILY bp 07/21/18 cholecalciferol (vitamin D3) 25 mcg (1,000 unit) tablet 1,000 unit PO DAILY bones 10/26/19 atenolol 50 mg tablet 50 mg PO DAILY@0800 30 days #30 tabs 10/09/22 hydroxyurea 500 mg capsule 1,000 mg (2 x 500 mg) PO MOTUTHFRSA #100 caps 10/02/24 acetaminophen 500 mg tablet 1,000 mg PO BID PRN inflammation 10/04/24 acetaminophen 500 mg tablet 1,000 mg (2 x 500 mg) PO Q8 #0 tabs 10/21/24 aspirin 81 mg capsule 81 mg PO BIDCM #60 caps 10/21/24 doxycycline monohydrate 100 mg capsule 100 mg PO Q12 9 days #0 caps 10/21/24 famotidine 20 mg tablet 20 mg PO DAILY 30 days #0 tabs 10/21/24 ferrous sulfate 325 mg (65 mg iron) tablet (FeroSul) 325 mg PO 1200,1700 20 days#0 tabs 10/21/24 folic acid 1 mg tablet 1 mg PO BREAKFAST 20 days #0 tabs 10/21/24 ondansetron HCl (PF) 4 mg/2 mL injection solution 4 mg (2 mL) IV Q6H PRN PRN Nausea/Vomiting 3 days#0 mL 10/21/24 oxycodone 5 mg tablet 5 - 10 mg (1 - 2 x 5 mg) PO Q4H PRN PRN Pain Score 4-10 7 days #42 tabs 10/21/24 Hospital Course Operations total knee replacement (Left total knee replacement, removal left tibial nail, removal interlockingscrews) Summary of Care Provided Hospital Course: Patient is an 79-year-old female who presented for an elective left total knee replacement and removal of left tibial nail as well as interlocking screws. Patient will be on aspirin 81 mg twice dailyfor 4 weeks postoperatively. Patient will be on Tylenol and oxycodone as needed for pain control. Patient has been having trouble having a bowel movement. Patient was placed on MiraLAX by medicine. Patient has been drinking prune juice and boost to help with bowelmovements. It was found on September from a CT scan that was reviewed with Dr. Rodriguez that patient had an acute distal tibia fracture without involvement of the articular surface. Patient was then placed in a pneumatic foam walkingboot and will be toe-touch weightbearing with a walker for 6 weeks postoperatively. Patient has been working with physical therapy. Patient's hemoglobin has been low so patient was placed on our anemia protocol which is ferrous sulfate and folic acid daily. This was discussed with medicine who feltt hat patient was medically stable. Patient did have hyponatremia as well and was given fluids by medicine. Patient's hyponatremia has resolved. Patient's low hemoglobin is likely due to receiving fluids and continued blood draws. Patient was sent with a outpatient lab form to receive CBC and BMP in 1 week to ensure hemoglobin and hematocrit are improving. Patient was encouraged to follow-up with primary care provider to manage anemia. Due to nature of patient's surgery she is on doxycycline for 2 weeks postoperatively. Patient did have 1 episode of an anxiety attack in the hospital. Patient was able to beconsoled after taking her oxycodone. Patient's pain has maintained controlled at this point. Patient was having some nausea and dizziness which patient states seems to have resolved today.Case is discussed with medicine who statedthat patient is medically stable at this point. [facility]. Patient has 2-week visit scheduled on our office. Patient will get leonid removed at that time. Patient was encouraged to call with any questions, con cerns, new problems. Weight / BMI Weight Weight: 85 kg Body Mass Index (BMI) 31.1 ABG / Lab / Microbiology Data 10/21/24 05:45 10/21/24 05:45 Laboratory: Laboratory Results - last 24 hr 10/21/24 05:45: WBC 5.4, RBC 2.30 L, Hgb 8.7 L, Hct 25.5 L, MCV 110.9 H, MCH 37.8 H, MCHC 34.1, RDWStd Deviation 64.2 H, RDW Coeff of Maury 15.8 H, Plt Count 224, MPV 10.8, Immature Gran % (Auto) 0.600, Neut % (Auto) 54.7, Lymph % (Auto) 27.2, Cameron % (Auto) 15.2 H, Eos % (Auto) 1.9, Baso % (Auto) 0.4, Absolute Neuts (auto) 3.0, Absolute Lymphs (auto) 1.47, Nucleated RBC % 0, Sodium 135, Potassium 3.8, Chloride 103, Carbon Dioxide 21.9, Anion Gap 10, BUN 25 H, Creatinine 1.04, Estim Creat Clear Calc 45.68 L, Est GFR (MDRD) Non-Af 54 L, BUN/Creatinine Ratio 23.7 H, Glucose 86, Calcium 8.5 Microbiology: Microbiology 10/11/24 14:20 Nasal Secretion Nasal Screen MRSA/MSSA - Final 07/31/24 14:25 Swab (Method) Nasal Screen MRSA/MSSA - Final D/C Instructions DC O2, CPAP, BIPAP Needs Home O2 Discharge instructions: No Meaningful Use Info Meaningful Use Meaningful Use Diagnoses (Choose all that apply): None applicable Discharge Plan Admission Admit Date/Time: 10/18/24 13:14 Attending Provider: Geo Rodriguez Primary Care Provider: Dago Emery [employer] Providers: Sofia Carvajal; Juliane Villa Discharge Orders/Prescriptions Prescriptions: New acetaminophen 500 mg Tablet 1,000 mg PO Q8 Qty: 0 0RF aspirin 81 mg capsule 81 mg PO BIDCM Qty: 60 0RF Rx Instructions: Take for 4 weeks postoperatively. famotidine 20 mg Tablet 20 mg PO DAILY 30 Days Qty: 0 0RF doxycycline monohydrate 100 mg Capsule 100 mg PO Q12 9 Days Qty: 0 0RF ferrous sulfate [FeroSul] 325 mg (65 mg iron) Tablet 325 mg PO 1200,1700 20 Days Qty: 0 0RF folic acid 1 mg Tablet 1 mg PO BREAKFAST 20 Days Qty: 0 0RF ondansetron HCl (PF) 4 mg/2 mL Solution 4 mg IV Q6H PRN PRN (Reason: Nausea/Vomiting) 3 Days Qty: 0 0RF oxycodone 5 mg Tablet 5 - 10 mg PO Q4H PRN PRN (Reason: Pain Score 4-10) 7 Days Qty: 42 0RF Continued levothyroxine [Levoxyl] 50 MCG tablet 50 mcg PO DAILY Patient Comments: THYROID losartan 100 MG tablet 100 mg PO DAILY Patient Comments: take 1 tablet by mouth once daily amlodipine 5 MG tablet 5 mg PO DAILY cholecalciferol (vitamin D3) 1,000 UNIT tablet 1,000 unit PO DAILY atenolol 50 mg Tablet 50 mg PO DAILY@0800 30 Days Qty: 30 0RF hydroxyurea 500 mg capsule 1,000 mg PO MOTUTHFRSA Qty: 100 4RF Rx Instructions: does not take on wednesdays or sundays Discontinued aspirin 81 mg tablet,chewable 81 mg PO DAILY No Action acetaminophen 500 mg Tablet 1,000 mg PO BID PRN (Reason: inflammation) Rx Instructions: Do not take more than 3000 mg Tylenol in a 24-hour period. Other Ambulatory Orders: 12 Lead EKG (Routine) Location: None Selected Ordered By: Dr. Geo Rodriguez Basic Metabolic Profile (BMP) (Routine) Timeframe: 1 Week Facility: [facility] - Location: Laboratory Ordered By: Nela Casanova CBC W/Diff, Automated (Routine) Timeframe: 1 Week Facility: [facility] - Location: Laboratory Ordered By: Nela Casanova Referrals / Follow Up: Dago Emery Chi, MD [Primary Care Provider] - Disposition Disposition (needs filled in before D/C Order can be placed): Inpatient Rehab Unit/Facility 10/21/24 1105 Cosigner Signature (if applicable): CC: ADRYAN Holland; Dr. Dago Emery MD~ Signed [facility]08-02-2025 Discharge summary [facility] Medical Records Department [address] [place] [address] Transfer to Extended Care MR#: [id number] Acct: [id number] Name: BERNICE JUAN Rep #:[id number] : 1945 79 From: Nela CORNELIUS PCP: Dr. Dago Emery MD Status:ADM I N Certification of patient admission REQUIRED AT TIME OF ADMISSION. I CERTIFY THAT POST-HOSPITAL ECF SERVICES ARE REQUIRED TO BE GIVEN ON AN IN-PATIENT BASIS BECAUSE OF THE ABOVE NAMED PATIENT'S NEED FOR [facility] CARE ON A CONTINUING BASIS FOR THE CONDITION(S) FOR WHICH HE/SHE WAS RECEIVING IN-PATIENT HOSPITAL SERVICES PRIOR TO HIS/HER TRANSFER TO THE [facility]. 10/21/24 1059 Diet Diet Order/Speech Therapy: INPATIENT Hospital Diet / Speech Therapy Order(s) 10/17/24 05:37 Diet: Regular - General Routine Orders/Code Status Routine Lab Work: CBC (Drawl CBC and BMP in 1 week to continue following postoperative anemia. Follow-up with primary care provider to manage chronic anemia) and BMP DC O2, CPAP, BIPAP needs Home O2 Discharge instructions: No Wound(s) LEFT KNEE: Wound Type: Surgical Incision (Left knee total knee replacement, removal left tibial nail, removal for interlocking screws. May remove dressing on 10/21/2024. If incision is clean, dry, intact can leave open to air. If drainagecan do dry dressing changes. No soaking, submerging, lotions, salves, oilsoverincision for 6 weeks ) Therapies Weight Bearing: Toe-touch weight bearing (Patient is toe-touch weightbearing in pneumatic foam walking boot with walker due to acute distal tibial metadiaphyseal junction fracture left lower extremity.) Extremity Affected:: Left Lower Physical Therapy: Eval and Treat (Physical therapy daily. Patient is toe-touch weightbearing on operative leg and pneumatic foam walking boot with walker.) Occupational Therapy: Eval and Treat Speech Therapy: Eval and Treat Problem/Diagnosis (1) Status post total left knee replacement: Status: Acute Code(s): Z96.652 - Presence of left artificial knee joint Plan: Status post robotic assisted left total knee replacement, removal left tibial nail, removal for interlocking screws postop day 5. Patient also has acute distaltibial metadiaphyseal junction fracture left lower extremity 1. DVT prophylaxis: Patient will be taking aspirin 81 mg twice daily for 4 weeks postoperatively. Patient will be wearing JUDE hose for 2 weeks postoperatively. 2. Pain medications: Patient will be on Tylenol 1000 mg every 8 hours. Patientwill be taking oxycodone as needed for postoperative pain medications. 3. Constipation: Patient has been placed on MiraLAX by medicine. Patient has also been drinking prune juice and is getting boost today. Patient states that her appetite is much better today. Patient states that is not unusual for her not to have a bowel movement when she is not eating. Patient states that her nausea and dizziness has gotten much better today. Patient still has Zofran to use as needed. 4. Left distal tibia fracture: CT images were reviewed with Dr. Rodriguez from October 17, 2024. CT did show an acute distal tibia fracture without involvement of articular surface. Patient is now using a walking boot and will be toe- touchweightbearing with walker for 6 weeks postoperatively. 5. Physical therapy: Patient will now be toe-touch weightbearing on operative side with a walker. She will be toe-touch weightbearing for 6 weeks postoperatively. 6. H&H: 8.7/25.5. Hemoglobin did drop from 9.1 yesterday. Patient is currently following anemiaprotocol and taking ferrous sulfate and folic acid daily. This was discussed with medicine who stated likely from continued blood draws and getting fluids yesterday. 7. Incentive spirometry: Patient was instructed to continue to use the incentive spirometer every hour that they are awake for the first week to exercise the lung and decrease risk of postoperative lung infection 8. Patient is to follow-up for postoperative instructions 9. Doxycycline: Patient will be on doxycycline for 2 weeks postoperatively due to nature of removalsurgery. Patient was educated on the risk of sunburn whiletaking doxycycline. Patient was educated to take a probiotic while taking doxycycline. Patient voiced understanding. 10. Continue postoperative medical treatment per medicine: Case was discussed with medicine. 11. Hyponatremia: Looks to have resolved with sodium level now at 135. This was discussed with medicine. 12. Anxiety: Patient states that her anxiety has gotten much better. Patient never actually received hydroxyzine yesterday. Hydroxyzine was discontinued by medicine today. 11. Disposition: At this time I do feel patient is ready for discharge to [facility].Patient states that she feels much more comfortable on her feet and feels that she is getting stronger. Patient's nausea and dizzinesshas resolved today. Patient states that her appetite is much better. Patient has not yet had a bowel movement. There is a bed available at the [facility]. Patient will be okay for discharge if pain maintains controlled, continues to work with physical therapy, and is okay per medicine doctors instructions. Medicine does feel patient is medicallystable at this point. We will plan to have patient get a CBC and BMP in 1 week at the transitional care unit to continue to monitor hemoglobin and hematocrit. Patient was educated that there would craft order to get CBC and BMP and to follow-up with primary care provider to continue to manage chronic anemia. Patient's discharge paperwork will be filled out today. Patient's narcotic painmedication will be sent with her to the TCU. Patient does have 2-week follow-upvisit scheduled in office. Patient was encouraged to call with any questions, concerns, new problems. This dictation was created using voice recognition software. Phonetic and/or grammatical errors mayexist. Allergies/Procedures Done in Hospital Allergies promethazine HCl (From Phenergan) Allergy (Severe, Verified 10/16/24 11:13) Other heightens engery (zing) Penicillins Adverse Reaction (Severe, Verified 10/16/24 11:13) Swelling red dye Adverse Reaction (Severe, Verified 10/16/24 11:13) Unknown mouth to droop Tetanus Vaccines and Toxoid Adverse Reaction (Intermediate, Verified 10/16/24 11:13) NEEDS FOLLOW-UP Type of Care/Length of Stay Estimated LOS: Convalescent Care Less Than 30 days Type of Care Needed: Skilled Rehab Potential: Good Prognosis: Good Additional Orders/Day of Discharge Day of Discharge: 10/21/24 Discharge Plan Admission Admit Date/Time: 10/18/24 13:14 Attending Provider: Geo Rodriguez Primary Care Provider: Dago Emery [employer] Providers: Sofia Carvajal; Juliane Villa Discharge Orders/Prescriptions Prescriptions: New acetaminophen 500 mg Tablet 1,000 mg PO Q8 Qty: 0 0RF aspirin 81 mg capsule 81 mg PO BIDCM Qty: 60 0RF Rx Instructions: Take for 4 weeks postoperatively. famotidine 20 mg Tablet 20 mg PO DAILY 30 Days Qty: 0 0RF doxycycline monohydrate 100 mg Capsule 100 mg PO Q12 9 Days Qty: 0 0RF ferrous sulfate [FeroSul] 325 mg (65 mg iron) Tablet 325 mg PO 1200,1700 20 Days Qty: 0 0RF folic acid 1 mg Tablet 1 mg PO BREAKFAST 20 Days Qty: 0 0RF ondansetron HCl (PF) 4 mg/2 mL Solution 4 mg IV Q6H PRN PRN (Reason: Nausea/Vomiting) 3 Days Qty: 0 0RF oxycodone 5 mg Tablet 5 - 10 mg PO Q4H PRN PRN (Reason: Pain Score 4-10) 7 Days Qty: 42 0RF Continued levothyroxine [Levoxyl] 50 MCG tablet 50 mcg PO DAILY Patient Comments: THYROID losartan 100 MG tablet 100 mg PO DAILY Patient Comments: take 1 tablet by mouth once daily amlodipine 5 MG tablet 5 mg PO DAILY cholecalciferol (vitamin D3) 1,000 UNIT tablet 1,000 unit PO DAILY atenolol 50 mg Tablet 50 mg PO DAILY@0800 30 Days Qty: 30 0RF hydroxyurea 500 mg capsule 1,000 mg PO MOTUTHFRSA Qty: 100 4RF Rx Instructions: does not take on wednesdays or sundays Discontinued aspirin 81 mg tablet,chewable 81 mg PO DAILY No Action acetaminophen 500 mg Tablet 1,000 mg PO BID PRN (Reason: inflammation) Rx Instructions: Do not take more than 3000 mg Tylenol in a 24-hour period. Other Ambulatory Orders: 12 Lead EKG (Routine) Location: None Selected Ordered By: Dr. Geo Rodriguez Basic Metabolic Profile (BMP) (Routine) Timeframe: 1 Week Facility: [facility] - Location: Laboratory Ordered By: Nela Casanova CBC W/Diff, Automated (Routine) Timeframe: 1 Week Facility: [facility] - Location: Laboratory Ordered By: Nela Casanova Referrals / Follow Up: Dago Emery Chi, MD [Primary Care Provider] - Disposition Disposition (needs filled in before D/C Order can be placed): Inpatient Rehab Unit/Facility 10/21/24 1050 Cosigner Signature (if applicable): CC: Dr. Juliane Villa MD; Dr. Sofia Carvajal MD; Dr. Dago Emery MD ~ [facility]08-02-2025 Progress note [facility] Medical Records Department [address] [place] [address] Progress Note - Orthopedic 10/21/24 1022 MR#: [id number] Acct: [id number] Name: BERNICE JUAN Rep #:[id number] : 1945 79 From: Nela CORNELIUS PCP: Dr. Dago Emery MD Status:ADM I N Location: [facility]3 [id number] Subjective Subjective Patient is sitting comfortably in bed. Patient states that today she is feelingmuch better. Patientstates that she is feeling much stronger on her feet and much stronger with walking with a walker. Patient states that she is much less anxious today. Patient states that her pain is controlled today. Patient states that her appetite is much better. Patient states she has not yet had a bowel movement but feels like she could. Patient states she will continue to drink her prune juice and boost. Patient states that she is doing well with physical therapy being toe-touch weightbearing on her operative leg with a walker. Patient denies any shortness of breath, chest pain, calf pain. Patientdeniesany fever, chills, signs of infection. Patient denies any new numbness or tingling. Patient denies any adverse events overnight. Objective Data Objective Data Vital Signs: Vital Signs Temp Pulse Resp BP Pulse Ox O2 Del Method O2 Flow Rate 98.0 F 70 18 136/69 H 96 Room Air 2 10/21/24 08:03 10/21/24 08:07 10/21/24 08:03 10/21/24 08:03 10/21/24 08:03 10/21/24 08:03 10/16/24 22:13 Oxygen Flow Rate (L/min) 2 Oxygen Delivery Method Room Air Weight: 85 kg Body Mass Index (BMI) 31.1 Intake & Output: Intake and Output for Last 24 Hours 10/19/24 10/20/24 10/21/24 23:59 23:59 23:59 Intake Total 2200 / 2200 1943.75 / 2143.75 400 / 400 Output Total 1550 / 1550 200 / 200 Balance 2200 / 2200 393.75 / 593.75 200 / 200 Lab / Micro Data 10/21/24 05:45 10/21/24 05:45 Labs: Laboratory Results - last 24 hr 10/21/24 05:45: WBC 5.4, RBC 2.30 L, Hgb 8.7 L, Hct 25.5 L, MCV 110.9 H, MCH 37.8 H, MCHC 34.1, RDWStd Deviation 64.2 H, RDW Coeff of Maury 15.8 H, Plt Count 224, MPV 10.8, Immature Gran % (Auto) 0.600, Neut % (Auto) 54.7, Lymph % (Auto) 27.2, Cameron % (Auto) 15.2 H, Eos % (Auto) 1.9, Baso % (Auto) 0.4, Absolute Neuts (auto) 3.0, Absolute Lymphs (auto) 1.47, Nucleated RBC % 0, Sodium 135, Potassium 3.8, Chloride 103, Carbon Dioxide 21.9, Anion Gap 10, BUN 25 H, Creatinine 1.04, Estim Creat Clear Calc 45.68 L, Est GFR (MDRD) Non-Af 54 L, BUN/Creatinine Ratio 23.7 H, Glucose 86, Calcium 8.5 Micro: Microbiology 10/11/24 14:20 Nasal Secretion Nasal Screen MRSA/MSSA - Final 07/31/24 14:25 Swab (Method) Nasal Screen MRSA/MSSA - Final Physical Exam Narrative Vital signs stable. JUDE hose in place bilaterally. Walking boot in place on operative foot Stable distal one third drainage on Mepilex dressing. Stable distal pin site drainage. Scott wrap in place on operative leg. Dorsiflexion and plantarflexion are performed without pain or restriction. Sensation intact to light touch. Neurovascular intact overall. Patient states that her skin feels sore on her bilateral calves which is nothingnew and she has hadit for about 2 years. Negative Homans bilaterally. Const alert, oriented x3 and no apparent distress Assessment & Plan Assessment/Plan (1) Status post total left knee replacement: PLAN: Status post robotic assisted left total knee replacement, removal left tibial nail, removal for interlocking screws postop day 5. Patient also has acute distal tibial metadiaphyseal junction fracture left lower extremity 1. DVT prophylaxis: Patient will be taking aspirin 81 mg twice daily for 4 weeks postoperatively. Patient will be wearing JUDE hose for 2 weeks postoperatively. 2. Pain medications: Patient will be on Tylenol 1000 mg every 8 hours. Patientwill be taking oxycodone as needed for postoperative pain medications. 3. Constipation: Patient has been placed on MiraLAX by medicine. Patient has also been drinking prune juice and is getting boost today. Patient states that her appetite is much better today. Patient states that is not unusual for her not to have a bowel movement when she is not eating. Patient states that her nausea and dizziness has gotten much better today. Patient still has Zofran to use as needed. 4. Left distal tibia fracture: CT images were reviewed with Dr. Rodriguez from October 17, 2024. CT did show an acute distal tibia fracture without involvement of articular surface. Patient is now using a walking boot and will be toe- touchweightbearing with walker for 6 weeks postoperatively. 5. Physical therapy: Patient will now be toe-touch weightbearing on operative side with a walker. She will be toe-touch weightbearing for 6 weeks postoperatively. 6. H&H: 8.7/25.5. Hemoglobin did drop from 9.1 yesterday. Patient is currently following anemiaprotocol and taking ferrous sulfate and folic acid daily. This was discussed with medicine who stated likely from continued blood draws and getting fluids yesterday. 7. Incentive spirometry: Patient was instructed to continue to use the incentive spirometer every hour that they are awake for the first week to exercise the lung and decrease risk of postoperative lung infection 8. Patient is to follow-up for postoperative instructions 9. Doxycycline: Patient will be on doxycycline for 2 weeks postoperatively due to nature of removalsurgery. Patient was educated on the risk of sunburn whiletaking doxycycline. Patient was educated to take a probiotic while taking doxycycline. Patient voiced understanding. 10. Continue postoperative medical treatment per medicine: Case was discussed with medicine. 11. Hyponatremia: Looks to have resolved with sodium level now at 135. This was discussed with medicine. 12. Anxiety: Patient states that her anxiety has gotten much better. Patient never actually received hydroxyzine yesterday. Hydroxyzine was discontinued by medicine today. 11. Disposition: At this time I do feel patient is ready for discharge to [facility].Patient states that she feels much more comfortable on her feet and feels that she is getting stronger. Patient's nausea and dizziness has resolved today. Patient states that her appetite is much better. Patient has not yet had a bowel movement. There is a bed available at the transitional care unit today. Patient will be okay for discharge if pain maintains controlled, continues to work with physical therapy, and is okay per medicine doctors instructions. Medicine does feel patient is medically stable at this point. We will plan to have patient get a CBC and BMP in 1 week at the transitionalcare unit to continue to monitor hemoglobin and hematocrit. Patient was educated that there would be an order to get CBC and BMP and to follow-up with primary care provider to continue to manage chronic anemia. Patient's discharge paperwork will be filled out today. Patient's narcotic painmedication will be sent with her to the TCU. Patient does have 2-week follow-upvisit scheduled in office. Patient was encouraged to call with any questions, concerns, new problems. This dictation was created using voice recognition software. Phonetic and/or grammatical errors mayexist. 10/21/24 1033 Cosigner Signature (if applicable): CC: ~ Signed [facility]08-01-2025 Progress note Author Sofia Carvajal [facility] Note Date/Time October 20, 2024 4:4 6pm [facility] Medical Records Department [address] [place] [address] Progress Note - Hospitalist 10/20/24 1640 MR#: [id number] Acct: [id number] Name: BERNICE JUAN Rep #:[id number] : 1945 79 From: Sofia Carvajal MD PCP: Dr. Dago Emery MD Status:ADM I N Location: [place] [id number] Subjective Subjective Initially this morning patient complaining of a lot of anxiety and irritability,patient calm down and improved into the afternoon, did receive her pain medication. Patient evaluated at bedside, resting comfortably in the chair, woke patient up. She reports that she is beginning to eat better and overall isfeeling somewhat better. Patient aware of likely DC to SNF tomorrow and is in agreement Objective Data Objective Data Vital Signs: Vital Signs Temp Pulse Resp BP Pulse Ox O2 Del Method O2 Flow Rate 97.9 F 72 16 127/60 H 99 Room Air 2 10/20/24 14:07 10/20/24 14:07 10/20/24 14:07 10/20/24 14:07 10/20/24 14:07 10/20/24 14:07 10/16/24 22:13 Oxygen Flow Rate (L/min) 2 Oxygen Delivery Method Room Air Weight: 85 kg Body Mass Index (BMI) 31.1 Intake & Output: Intake and Output for Last 24 Hours 10/18/24 10/19/24 10/20/24 23:59 23:59 23:59 Intake Total 0 / 400 2200 / 2200 943.75 / 943.75 Output Total 500 / 500 1550 / 1550 Balance -500 / -100 2200 / 2200 -606.25 / -606.25 Lab / Micro Data 10/20/24 05:57 10/20/24 05:57 Labs: Laboratory Results - last 24 hr 10/20/24 05:57: WBC 7.0, RBC 2.42 L, Hgb 9.1 L, Hct 27.0 L, MCV 111.6 H, MCH 37.6 H, MCHC 33.7, RDW Std Deviation 64.2 H, RDW Coeff of Maury 15.5 H, Plt Count 210, MPV 10.8, Sodium 136, Potassium 3.8, Chloride 105, Carbon Dioxide 21.4, Anion Gap 10, BUN 15, Creatinine 0.86, Estim Creat Clear Calc 55.24, Est GFR (MDRD) Non-Af 68, BUN/Creatinine Ratio 17.8, Glucose 82, Calcium 8.3 Micro: Microbiology 10/11/24 14:20 Nasal Secretion Nasal Screen MRSA/MSSA - Final 07/31/24 14:25 Swab (Method) Nasal Screen MRSA/MSSA - Final Physical Exam Narrative General: Alert, no apparent distress HEENT: Atraumatic, normocephalic Eyes: extraocular movements grossly intact Neck: Supple Respiratory: normal respiratory effort Cardiovascular: no edema appreciated GI: nondistended Extremities: Moving all extremities aside from left lower extremity in boot Neuro: No overt focal neurological deficits Psych: Cooperative Assessment & Plan Assessment/Plan (1) Status post total left knee replacement: PLAN: Plan #Left knee osteoarthritis status post left total knee replacement on 10/16/2024/ankle fracture and removal of left tibial nail and interlocking screws, history of tibial fracture with intramedullary nail placement ? Pain management per primary ? PT/OT ? Slight drop in her hemoglobin to 9.4, will recheck this afternoon and again inthe morning ? Continue with doxycycline ? Yesterday she was complaining of ankle pain so an x-ray and a CT scan were obtained which demonstrated an acute distal tibial fracture. She is in a walking boot and toe-touch weightbearing on the operative side ? Patient had removal of left tibial nail and 4 interlocking screws during procedure on 10/16 as well. Multiple small incision sites on middle part of anterior carpio noted. Did have some postoperative blood oozing noted so Steri-Strips were placed and bandages with Scott wrap were replaced. ? Dressings are in place -10/20: Management per primary, patient to go to TCU tomorrow # Essential HTN ? Blood pressure stable ? She can resume her home blood pressure medications ? Will monitor make adjustments as necessary -10/20: Blood pressure 127/60 at this time, can continue her home medications, this is an acceptable blood pressure in the acute setting # Anxiety -10/20: Patient reporting anxiety and was irritable and labile in the a.m., ultimately put in for hydroxyzine as needed for anxiety, want to avoid benzos especially given she is still receiving oxycodone but patient has not yet neededthis. Patient was evaluated at bedside and overall resting comfortably and doing fairly well, no further acute management necessary at this time. Supportive care # Postoperative anemia -10/20: Patient did have a hemoglobin of 12.1 preoperatively and subsequently trended down to the mid nines but has been stable since then, this a.m. was 9.1 slightly down from yesterday however patient had received IV fluids due to somewhat poor p.o. intake suspect this is dilutional in combination with continued blood draws. No further workup at this time acutely necessary Chronic medical problems and/or problems not being actively addressed during today's encounter: # Myeloproliferative disorder ? Follows with oncology, last office visit on 10/11. ? Has positive JAK2 mutation with persistent thrombocytosis. ? Continue with home hydroxyurea. # Hypothyroidism ? Stable ? Continue home Synthroid. DVT: Twice daily aspirin per Ortho Charges/Coding Visit Charges Inpatient E&M: 88734 Subs Hosp L1 10/20/24 7019 <Electronically signed by Sofia Carvajal MD> Cosigner Signature (if applicable): CC: ~ Signed [facility] Work Phone: 1(197) 479-123408-01-2025 Progress note [facility] Medical Records Department [address] [place] [address] Progress Note - Hospitalist 10/20/24 1640 MR#: [id number] Acct: [id number] Name: BERNICE JUAN Rep #:[id number] : 1945 79 From: Sofia Carvajal MD PCP: Dr. Dago Emery MD Status:ADM I N Location: MS3 [id number] Subjective Subjective Initially this morning patient complaining of a lot of anxiety and irritability,patient calm down and improved into the afternoon, did receive her pain medication. Patient evaluated at bedside, resting comfortably in the chair, woke patient up. She reports that she is beginning to eat better and overall isfeeling somewhat better. Patient aware of likely DC to SNF tomorrow and is in agreement Objective Data Objective Data Vital Signs: Vital Signs Temp Pulse Resp BP Pulse Ox O2 Del Method O2 Flow Rate 97.9 F 72 16 127/60 H 99 Room Air 2 10/20/24 14:07 10/20/24 14:07 10/20/24 14:07 10/20/24 14:10/20/24 14:10/20/24 14:07 10/16/24 22:13 Oxygen Flow Rate (L/min) 2 Oxygen Delivery Method Room Air Weight: 85 kg Body Mass Index (BMI) 31.1 Intake & Output: Intake and Output for Last 24 Hours 10/18/24 10/19/24 10/20/24 23:59 23:59 23:59 Intake Total 0 / 400 2200 / 2200 943.75 / 943.75 Output Total 500 / 500 1550 / 1550 Balance -500 / -100 2200 / 2200 -606.25 / -606.25 Lab / Micro Data 10/20/24 05:57 10/20/24 05:57 Labs: Laboratory Results - last 24 hr 10/20/24 05:57: WBC 7.0, RBC 2.42 L, Hgb 9.1 L, Hct 27.0 L, MCV 111.6 H, MCH 37.6 H, MCHC 33.7, RDWStd Deviation 64.2 H, RDW Coeff of Maury 15.5 H, Plt Count 210, MPV 10.8, Sodium 136, Potassium 3.8, Chloride 105, Carbon Dioxide 21.4, Anion Gap 10, BUN 15, Creatinine 0.86, Estim Creat Clear Calc 55.24, Est GFR (MDRD) Non-Af 68, BUN/Creatinine Ratio 17.8, Glucose 82, Calcium 8.3 Micro: Microbiology 10/11/24 14:20 Nasal Secretion Nasal Screen MRSA/MSSA - Final 07/31/24 14:25 Swab (Method) Nasal Screen MRSA/MSSA - Final Physical Exam Narrative General: Alert, no apparent distress HEENT: Atraumatic, normocephalic Eyes: extraocular movements grossly intact Neck: Supple Respiratory: normal respiratory effort Cardiovascular: no edema appreciated GI: nondistended Extremities: Moving all extremities aside from left lower extremity in boot Neuro: No overt focal neurological deficits Psych: Cooperative Assessment & Plan Assessment/Plan (1) Status post total left knee replacement: PLAN: Plan #Left knee osteoarthritis status post left total knee replacement on 10/16/2024/ankle fracture and removal of left tibial nail and interlocking screws, history of tibial fracture with intramedullary nail placement ? Pain management per primary ? PT/OT ? Slight drop in her hemoglobin to 9.4, will recheck this afternoon and again inthe morning ? Continue with doxycycline ? Yesterday she was complaining of ankle pain so an x-ray and a CT scan were obtained which demonstrated an acute distal tibial fracture. She is in a walking boot and toe-touch weightbearing on the operative side ? Patient had removal of left tibial nail and 4 interlocking screws during procedure on 10/16 as well. Multiple small incision sites on middle part of anterior carpio noted. Did have some postoperative blood oozing noted so Steri- Strips were placed and bandages with Scott wrap were replaced. ? Dressings are in place -10/20: Management per primary, patient to go to TCU tomorrow # Essential HTN ? Blood pressure stable ? She can resume her home blood pressure medications ? Will monitor make adjustments as necessary -10/20: Blood pressure 127/60 at this time, can continue her home medications, this is an acceptable blood pressure in the acute setting # Anxiety -10/20: Patient reporting anxiety and was irritable and labile in the a.m., ultimately put in for hydroxyzine as needed for anxiety, want to avoid benzos especially given she is still receiving oxycodone but patient has not yet neededthis. Patient was evaluated at bedside and overall resting comfortably and doing fairly well, no further acute management necessary at this time. Supportive care # Postoperative anemia -10/20: Patient did have a hemoglobin of 12.1 preoperatively and subsequently trended down to the midnines but has been stable since then, this a.m. was 9.1 slightly down from yesterday however patient had received IV fluids due to somewhat poor p.o. intake suspect this is dilutional in combination with continued blood draws. No further workup at this time acutely necessary Chronic medical problems and/or problems not being actively addressed during today's encounter: # Myeloproliferative disorder ? Follows with oncology, last office visit on 10/11. ? Has positive JAK2 mutation with persistent thrombocytosis. ? Continue with home hydroxyurea. # Hypothyroidism ? Stable ? Continue home Synthroid. DVT: Twice daily aspirin per Ortho Charges/Coding Visit Charges Inpatient E&M: 31656 Subs Hosp L1 10/20/24 1646 Cosigner Signature (if applicable): CC: ~ Signed [facility]08-01-2025 Progress note Author Nela Casanova [facility] Note Date/Time October 20, 2024 11: 56am [facility] Medical Records Department [address] [place] [address] Progress Note - Orthopedic 10/20/24 1144 MR#: [id number] Acct: [id number] Name: BERNICE JUAN Rep #:[id number] : 1945 79 From: Nela CORNELIUS PCP: Dr. Dago Emery MD Status:ADM I N Location: [place] [address] Subjective Subjective Patient is sitting comfortably in bedside chair. Patient states that she is having a much better afternoon then this morning. Patient states that she did have an anxiety attack this morning after not sleeping all night. Patient was placed on hydroxyzine as needed by medicine. Patient states she is still not had a bowel movement. Patient states they are giving her boost this afternoon as that typically increases her bowel movements. Patient states that she can godays without having a bowel movement if she does not eat. Patient states that her nausea and dizziness have gotten better but she still has some residual dizziness. Patient states that she seems to finally be getting her appetite back. Patient states that she is doing well with physical therapy and trying tofigure out how to be toe-touch weightbearing on her walker. Patient denies any shortness of breath, chest pain, calf pain. Patient denies any fevers, chills, signs of infection. Objective Data Objective Data Vital Signs: Vital Signs Temp Pulse Resp BP Pulse Ox O2 Del Method O2 Flow Rate 98.6 F 65 16 163/71 H 98 Room Air 2 10/20/24 03:11 10/20/24 03:11 10/20/24 03:11 10/20/24 03:11 10/20/24 09:00 10/20/24 09:00 10/16/24 22:13 Oxygen Flow Rate (L/min) 2 Oxygen Delivery Method Room Air Weight: 85 kg Body Mass Index (BMI) 31.1 Intake & Output: Intake and Output for Last 24 Hours 10/18/24 10/19/24 10/20/24 23:59 23:59 23:59 Intake Total 0 / 400 2200 / 2200 943.75 / 943.75 Output Total 500 / 500 1550 / 1550 Balance -500 / -100 2200 / 2200 -606.25 / -606.25 Lab / Micro Data 10/20/24 05:57 10/20/24 05:57 Labs: Laboratory Results - last 24 hr 10/19/24 12:59: POC Glucose 120 H 10/20/24 05:57: WBC 7.0, RBC 2.42 L, Hgb 9.1 L, Hct 27.0 L, MCV 111.6 H, MCH 37.6 H, MCHC 33.7, RDW Std Deviation 64.2 H, RDW Coeff of Maury 15.5 H, Plt Count 210, MPV 10.8, Sodium 136, Potassium 3.8, Chloride 105, Carbon Dioxide 21.4, Anion Gap 10, BUN 15, Creatinine 0.86, Estim Creat Clear Calc 55.24, Est GFR (MDRD) Non-Af 68, BUN/Creatinine Ratio 17.8, Glucose 82, Calcium 8.3 Micro: Microbiology 10/11/24 14:20 Nasal Secretion Nasal Screen MRSA/MSSA - Final 07/31/24 14:25 Swab (Method) Nasal Screen MRSA/MSSA - Final Physical Exam Narrative Vital signs stable. JUDE hose in place bilaterally. Walking boot in place on operative foot Stable distal one third drainage on Mepilex dressing. Scott wrap in place on operative leg. Dorsiflexion and plantarflexion are performed without pain or restriction. Sensation intact to light touch. Neurovascular intact overall. Negative Homans bilaterally. Const alert, oriented x3 and no apparent distress Assessment & Plan Assessment/Plan (1) Status post total left knee replacement: PLAN: Status post robotic assisted left total knee replacement, removal left tibial nail, removal for interlocking screws postop day 4. Patient also has acute distal tibial metadiaphyseal junction fracture left lower extremity 1. DVT prophylaxis: Patient will be taking aspirin 81 mg twice daily for 4 weeks postoperatively. Patient will be wearing JUDE hose for 2 weeks postoperatively. 2. Pain medications: Patient will be on Tylenol 1000 mg every 8 hours. Patientwill be taking oxycodone as needed for postoperative pain medications. 3. Constipation: Patient has been placed on MiraLAX by medicine. Patient has also been drinking prune juice and is getting boost today. Patient states that her appetite has started to come back today. Patient states that is not unusualfor her not to have a bowel movement when she is not eating. Patient states that her nausea and dizziness has gotten much better today. Patient still has Zofran to use as needed. 4. Left distal tibia fracture: CT images were reviewed with Dr. Rodriguez from October 17, 2024. CT did show an acute distal tibia fracture without involvement of articular surface. Patient is now using a walking boot and will be toe-touchweightbearing with walker for 6 weeks postoperatively. 5. Physical therapy: Patient will now be toe-touch weightbearing on operative side with a walker. She will be toe-touch weightbearing for 6 weeks postoperatively. 6. H&H: 9.1/27.0. Hemoglobin did drop from 9.4 yesterday. Patient is currently following anemia protocol and taking ferrous sulfate and folic acid daily. 7. Incentive spirometry: Patient was instructed to continue to use the incentive spirometer every hour that they are awake for the first week to exercise the lung and decrease risk of postoperative lung infection 8. Patient has to follow-up for postoperative instructions 9. Doxycycline: Patient will be on doxycycline for 2 weeks postoperatively due to nature of removal surgery. Patient was educated on the risk of sunburn whiletaking doxycycline. Patient was educated to take a probiotic while taking doxycycline. Patient voiced understanding. 10. Continue postoperative medical treatment per medicine: Case was discussed with medicine. 11. Hyponatremia: Looks to have resolved with sodium level now at 136. 12. Anxiety: Patient did have an anxiety attack this morning after not sleepingall night. Patient has not been placed on hydroxyzine by medicine for as neededanxiety. 11. Disposition: I do not feel patient is ready for discharge to [facility] facility at this time. Due to the acute distal tibia fracture this has changed patient's postoperative treatment plan. Patient is now getting used to being toe-touch weightbearing on the operative side. Patient's hyponatremia hasresolved but patient has since had an anxiety attack this morning. Patient is also having some residual nausea and dizziness. She is working with physical therapy with regards to being toe-touch weightbearing with a walker. Patient will require a 3 night midnight stay and plan will be for transition to the transitional care unit on Wednesday, October 21, 2024. Appreciate recommendations from medicine with regards to patient's medical comorbidities and anxiety. Willrepeat CBC and BMP tomorrow. Patient was encouraged to call with any questions,concerns, new problems. This dictation was created using voice recognition software. Phonetic and/or grammatical errors may exist. 10/20/24 1156 <Electronically signed by Nela CORNELIUS> Cosigner Signature (if applicable): CC: ~ Signed [facility] Work Phone: 1(311) 407-429108-01-2025 Progress note [facility] Medical Records Department [address] [place] [address] Progress Note - Orthopedic 10/20/24 1144 MR#: [id number] Acct: [id number] Name: BERNICE JUAN Rep #:[id number] : 1945 79 From: Nela CORNELIUS PCP: Dr. Dago Emery MD Status:ADM I N Location: [place] [address] Subjective Subjective Patient is sitting comfortably in bedside chair. Patient states that she is having a much better afternoon then this morning. Patient states that she did have an anxiety attack this morning after notsleeping all night. Patient was placed on hydroxyzine as needed by medicine. Patient states she is still not had a bowel movement. Patient states they are giving her boost this afternoon as that typically increases her bowel movements. Patient states that she can godays without having a bowel movement if she does not eat. Patient states that her nausea and dizziness have gotten better but she still has some residual dizziness. Patient states that she seems to finally be getting her appetite back . Patient states that she is doing well with physical therapy and trying tofigure out how to be toe-touch weightbearing on her walker. Patient denies any shortness of breath, chest pain, calf pain. Patient denies any fevers, chills, signs of infection. Objective Data Objective Data Vital Signs: Vital Signs Temp Pulse Resp BP Pulse Ox O2 Del Method O2 Flow Rate 98.6 F 65 16 163/71 H 98 Room Air 2 10/20/24 03:11 10/20/24 03:11 10/20/24 03:11 10/20/24 03:11 10/20/24 09:00 10/20/24 09:00 10/16/24 22:13 Oxygen Flow Rate (L/min) 2 Oxygen Delivery Method Room Air Weight: 85 kg Body Mass Index (BMI) 31.1 Intake & Output: Intake and Output for Last 24 Hours 10/18/24 10/19/24 10/20/24 23:59 23:59 23:59 Intake Total 0 / 400 2200 / 2200 943.75 / 943.75 Output Total 500 / 500 1550 / 1550 Balance -500 / -100 2200 / 2200 -606.25 / -606.25 Lab / Micro Data 10/20/24 05:57 10/20/24 05:57 Labs: Laboratory Results - last 24 hr 10/19/24 12:59: POC Glucose 120 H 10/20/24 05:57: WBC 7.0, RBC 2.42 L, Hgb 9.1 L, Hct 27.0 L, MCV 111.6 H, MCH 37.6 H, MCHC 33.7, RDWStd Deviation 64.2 H, RDW Coeff of Maury 15.5 H, Plt Count 210, MPV 10.8, Sodium 136, Potassium 3.8, Chloride 105, Carbon Dioxide 21.4, Anion Gap 10, BUN 15, Creatinine 0.86, Estim Creat Clear Calc 55.24, Est GFR (MDRD) Non-Af 68, BUN/Creatinine Ratio 17.8, Glucose 82, Calcium 8.3 Micro: Microbiology 10/11/24 14:20 Nasal Secretion Nasal Screen MRSA/MSSA - Final 07/31/24 14:25 Swab (Method) Nasal Screen MRSA/MSSA - Final Physical Exam Narrative Vital signs stable. JUDE hose in place bilaterally. Walking boot in place on operative foot Stable distal one third drainage on Mepilex dressing. Scott wrap in place on operative leg. Dorsiflexion and plantarflexion are performed without pain or restriction. Sensation intact to light touch. Neurovascular intact overall. Negative Homans bilaterally. Const alert, oriented x3 and no apparent distress Assessment & Plan Assessment/Plan (1) Status post total left knee replacement: PLAN: Status post robotic assisted left total knee replacement, removal left tibial nail, removal for interlocking screws postop day 4. Patient also has acute distal tibial metadiaphyseal junction fracture left lower extremity 1. DVT prophylaxis: Patient will be taking aspirin 81 mg twice daily for 4 weeks postoperatively. Patient will be wearing JUDE hose for 2 weeks postoperatively. 2. Pain medications: Patient will be on Tylenol 1000 mg every 8 hours. Patientwill be taking oxycodone as needed for postoperative pain medications. 3. Constipation: Patient has been placed on MiraLAX by medicine. Patient has also been drinking prune juice and is getting boost today. Patient states that her appetite has started to come back today. Patient states that is not unusualfor her not to have a bowel movement when she is not eating. Patient states that her nausea and dizziness has gotten much better today. Patient still has Zofran to use as needed. 4. Left distal tibia fracture: CT images were reviewed with Dr. Rodriguez from October 17, 2024. CT did show an acute distal tibia fracture without involvement of articular surface. Patient is now using a walking boot and will be toe- touchweightbearing with walker for 6 weeks postoperatively. 5. Physical therapy: Patient will now be toe-touch weightbearing on operative side with a walker. She will be toe-touch weightbearing for 6 weeks postoperatively. 6. H&H: 9.1/27.0. Hemoglobin did drop from 9.4 yesterday. Patient is currently following anemiaprotocol and taking ferrous sulfate and folic acid daily. 7. Incentive spirometry: Patient was instructed to continue to use the incentive spirometer every hour that they are awake for the first week to exercise the lung and decrease risk of postoperative lung infection 8. Patient has to follow-up for postoperative instructions 9. Doxycycline: Patient will be on doxycycline for 2 weeks postoperatively due to nature of removalsurgery. Patient was educated on the risk of sunburn whiletaking doxycycline. Patient was educated to take a probiotic while taking doxycycline. Patient voiced understanding. 10. Continue postoperative medical treatment per medicine: Case was discussed with medicine. 11. Hyponatremia: Looks to have resolved with sodium level now at 136. 12. Anxiety: Patient did have an anxiety attack this morning after not sleepingall night. Patient has not been placed on hydroxyzine by medicine for as neededanxiety. 11. Disposition: I do not feel patient is ready for discharge to [facility] facility at this time. Due to the acute distal tibia fracture this has changed patient's postoperative treatment plan.Patient is now getting used to being toe- touch weightbearing on the operative side. Patient's hyponatremia hasresolved but patient has since had an anxiety attack this morning. Patient is also having some residual nausea and dizziness. She is working with physical therapy with regards to being toe-touch weightbearing with a walker. Patient will require a 3 night midnight stay and plan will be fortransition to the transitional care unit on Wednesday, October 21, 2024. Appreciate recommendations from medicine with regards to patient's medical comorbidities and anxiety. Willrepeat CBC and BMP tomorrow. Patient was encouraged to call with any questions,concerns, new problems. This dictation was created using voice recognition software. Phonetic and/or grammatical errors mayexist. 10/20/24 1156 Cosigner Signature (if applicable): CC: ~ Signed [facility]07-31-2025 Progress note Author Landen Hernández [facility] Note Date/Time October 19, 2024 1:45 pm [facility] Medical Records Department [address] [place] [address] Progress Note - Orthopedic 10/19/24 1306 MR#: [id number] Acct: [id number] Name: BERNICE JUAN Rep #:[id number] : 1945 79 From: Landen CORNELIUS PA-C PCP: Dr. Dago Emery MD Status:ADM I N Location: MS3 [id number] Subjective Subjective The patient was sitting in bed upon examination. Patient denies any chest pain,shortness of breath, or calf pain. Patient denies abdominal pain. Patient has not had a bowel movement postoperatively. She has been getting stool softener and prune juice. Patient states when she is not eating she could go 5+ days without bowel movements. Her pain has been controlled on medications. Patient earlier this week did have some hypotension but her blood pressure has been morestable now. She has had drop in hemoglobin which has been stable at 9.4. Recent labs do show some hyponatremia currently at 131. Case was discussed withmedicine and they are going to give her some fluids. Patient did have a CT scanwhich did reveal an acute tibial tibia fracture. She has weightbearing restrictions in which she has now using a pneumatic foam walking boot. She is toe-touch weightbearing. She has been working with therapy. Objective Data Objective Data Vital Signs: Vital Signs Temp Pulse Resp BP Pulse Ox O2 Del Method O2 Flow Rate 98.3 F 59 L 17 123/69 H 97 Room Air 2 10/19/24 08:35 10/19/24 08:35 10/19/24 08:35 10/19/24 08:35 10/19/24 09:00 10/19/24 09:00 10/16/24 22:13 Oxygen Flow Rate (L/min) 2 Oxygen Delivery Method Room Air Weight: 85 kg Body Mass Index (BMI) 31.1 Intake & Output: Intake and Output for Last 24 Hours 10/17/24 10/18/24 10/19/24 23:59 23:59 23:59 Intake Total 400 / 400 0 / 400 800 / 800 Output Total 500 / 500 Balance 400 / 400 -500 / -100 800 / 800 Lab / Micro Data 10/19/24 05:54 10/19/24 05:54 Labs: Laboratory Results - last 24 hr 10/18/24 15:07: Hgb 9.5 L, Hct 28.2 L 10/19/24 05:54: WBC 7.8, RBC 2.49 L, Hgb 9.4 L, Hct 27.6 L, MCV 110.8 H, MCH 37.8 H, MCHC 34.1, RDW Std Deviation 62.7 H, RDW Coeff of Maury 15.5 H, Plt Count 181, MPV 11.0, Immature Gran % (Auto) 0.600, Neut % (Auto) 66.7, Lymph % (Auto) 14.4 L, Cameron % (Auto) 17.1 H, Eos % (Auto) 0.9, Baso % (Auto) 0.3, Absolute Neuts (auto) 5.2, Absolute Lymphs (auto) 1.13, Nucleated RBC % 0, Sodium 131 L, Potassium 4.1, Chloride 98, Carbon Dioxide 21.9, Anion Gap 11, BUN 17, Creatinine 1.02, Estim Creat Clear Calc 46.57 L, Est GFR (MDRD) Non-Af 55 L, BUN/Creatinine Ratio 16.2, Glucose 94, Calcium 8.9 Micro: Microbiology 10/11/24 14:20 Nasal Secretion Nasal Screen MRSA/MSSA - Final 07/31/24 14:25 Swab (Method) Nasal Screen MRSA/MSSA - Final Radiography Diagnostic Testing: Radiology Impression Knee X-Ray 10/16/24 15:37 IMPRESSION: Intraoperative fluoroscopic services provided for intramedullary nailing of the tibia. Reading Location: [facility] Physical Exam Narrative Vital signs stable and afebrile. Patient is complaining of some dizziness and nausea at this time. Patient did have some pale color to the face after workingwith therapy. Nursing while in the room her vitals were overall stable with blood glucose 120. Heart rate 95. Blood pressure was stable. Patient is able to plantarflex and dorsiflex actively. Sensation is intact to light touch to saphenous, sural, superficial and deep peroneal, and tibial distribution. Drainage over the main Mepilex dressing has been stable over the distal one third. There is drainage at the pin site. Scott wrap for the left lower extremity in place. Negative Homans bilaterally, negative signs and symptoms of DVT. Const alert, oriented x3 and no apparent distress Assessment & Plan Assessment/Plan (1) Status post total left knee replacement: PLAN: Status post robotic assisted left total knee replacement, removal left tibial nail, removal for interlocking screws postop day 3. Patient also has acute distal tibial metadiaphyseal junction fracture left lower extremity 1. DVT prophylaxis: Patient will be taking aspirin 81 mg twice daily for 4 weeks postoperatively. Patient will be wearing JUDE hose for 2 weeks postoperatively. 2. Pain medications: Patient will be on Tylenol 1000 mg every 8 hours. Patientwill be taking oxycodone as needed for postoperative pain medications. 3. Constipation: Patient has been placed on MiraLAX by medicine. She has beenusing prune juice. Patient has not been eating. She states she has no appetite. She reports when she is not eating much she can go 5+ days without bowel movement. She currently has some nausea which we will use the Zofran as needed. She denies any abdominal pain. 4. Left distal tibia fracture: CT images were reviewed with Dr. Rodriguez from October 17, 2024. CT did show an acute distal tibia fracture without involvement of articular surface. Patient is currently using the pneumatic foam walking boot. She is toe- touch weightbearing with use of walker for 6 weeks postoperatively. 5. Physical therapy: Patient will now be toe-touch weightbearing on operative side with a walker. She will be toe-touch weightbearing for 6 weeks postoperatively. 6. H&H: 9.4/27.6. At this point due to patient's hemoglobin dropping below 10 we will plan to start anemia protocol with iron and folic acid. 7. Incentive spirometry: Patient was instructed to continue to use the incentive spirometer every hour that they are awake for the first week to exercise the lung and decrease risk of postoperative lung infection 8. Patient has to follow-up for postoperative instructions 9. Doxycycline: Patient will be on doxycycline for 2 weeks postoperatively due to nature of removal surgery. Patient was educated on the risk of sunburn whiletaking doxycycline. Patient was educated to take a probiotic while taking doxycycline. Patient voiced understanding. 10. Continue postoperative medical treatment per medicine: Case was discussed with medicine with her hyponatremia at 131. Patient has not been eating. Appreciate recommendations from medicine with regards to the hyponatremia and lack of bowel movement. Medicine states they will give patient IV fluids. Continue to monitor. 11. Disposition: At this time I do not feel patient is ready for discharge to [facility] facility. Due to the acute distal tibia fracture this has changed patient's postoperative treatment plan. She has now toe-touch weightbearing on the left lower extremity. She is working with physical therapywith regards to these restrictions. Patient will require a 3 night midnight stay and plan will be for transition to the transitional care unit on Wednesday, October 21, 2024. Appreciate recommendations from medicine with regards to patient's hyponatremia and medical comorbidities. Her vitals today have been stable. We will repeat lab work tomorrow. Lab orders have been placed in chart. This dictation was created using voice recognition software. Phonetic and/or grammatical errors may exist. 10/19/24 1345 <Electronically signed by Landen OCRNELIUS PA-C> Cosigner Signature (if applicable): CC: ~ Signed [facility] Work Phone: [phone] Progress note [facility] Medical Records Department [address] [place] [address] Progress Note - Orthopedic 10/19/24 1306 MR#: [id number] Acct: [id number] Name: BERNICE JUAN Rep #:[id number] : 1945 79 From: Landen CORNELIUS PA-C PCP: Dr. Dago Emery MD Status:ADM I N Location: [address] Subjective Subjective The patient was sitting in bed upon examination. Patient denies any chest pain,shortness of breath,or calf pain. Patient denies abdominal pain. Patient has not had a bowel movement postoperatively. She has been getting stool softener and prune juice. Patient states when she is not eating she couldgo 5+ days without bowel movements. Her pain has been controlled on medications. Patient earlier this week did have some hypotension but her blood pressure has been morestable now. She has had drop in hemoglobin which has been stable at 9.4. Recent labs do show some hyponatremia currently at 131. Case was discussed withmedicine and they are going to give her some fluids. Patient did have a CT scanwhich did reveal an acute tibial tibia fracture. She has weightbearing restrictions in which she has now using a pneumatic foam walking boot. She is toe-touch weightbearing. She has been working withtherapy. Objective Data Objective Data Vital Signs: Vital Signs Temp Pulse Resp BP Pulse Ox O2 Del Method O2 Flow Rate 98.3 F 59 L 17 123/69 H 97 Room Air 2 10/19/24 08:35 10/19/24 08:35 10/19/24 08:35 10/19/24 08:35 10/19/24 09:00 10/19/24 09:00 10/16/24 22:13 Oxygen Flow Rate (L/min) 2 Oxygen Delivery Method Room Air Weight: 85 kg Body Mass Index (BMI) 31.1 Intake & Output: Intake and Output for Last 24 Hours 10/17/24 10/18/24 10/19/24 23:59 23:59 23:59 Intake Total 400 / 400 0 / 400 800 / 800 Output Total 500 / 500 Balance 400 / 400 -500 / -100 800 / 800 Lab / Micro Data 10/19/24 05:54 10/19/24 05:54 Labs: Laboratory Results - last 24 hr 10/18/24 15:07: Hgb 9.5 L, Hct 28.2 L 10/19/24 05:54: WBC 7.8, RBC 2.49 L, Hgb 9.4 L, Hct 27.6 L, MCV 110.8 H, MCH 37.8 H, MCHC 34.1, RDWStd Deviation 62.7 H, RDW Coeff of Maury 15.5 H, Plt Count 181, MPV 11.0, Immature Gran % (Auto) 0.600, Neut % (Auto) 66.7, Lymph % (Auto) 14.4 L, Cameron % (Auto) 17.1 H, Eos % (Auto) 0.9, Baso % (Auto) 0.3, Absolute Neuts (auto) 5.2, Absolute Lymphs (auto) 1.13, Nucleated RBC % 0, Sodium 131 L, Potassium 4.1, Chloride 98, Carbon Dioxide 21.9, Anion Gap 11, BUN 17, Creatinine 1.02, Estim Creat Clear Calc 46.57 L, Est GFR (MDRD) Non-Af 55 L, BUN/Creatinine Ratio 16.2, Glucose 94, Calcium 8.9 Micro: Microbiology 10/11/24 14:20 Nasal Secretion Nasal Screen MRSA/MSSA - Final 07/31/24 14:25 Swab (Method) Nasal Screen MRSA/MSSA - Final Radiography Diagnostic Testing: Radiology Impression Knee X-Ray 10/16/24 15:37 IMPRESSION: Intraoperative fluoroscopic services provided for intramedullary nailing of the tibia. Reading Location: [id number] Physical Exam Narrative Vital signs stable and afebrile. Patient is complaining of some dizziness and nausea at this time. Patient did have some pale color to the face after workingwith therapy. Nursing while in the room her vitals were overall stable with blood glucose 120. Heart rate 95. Blood pressure was stable. Patient is able to plantarflex and dorsiflex actively. Sensation is intact to light touch to saphenous, sural, superficial and deep peroneal, and tibial distribution. Drainage over the main Mepilex dressing has been stable over the distal one third. There is drainage at the pin site. Scott wrap for the left lower extremity in place. Negative Homans bilaterally, negative signs and symptoms of DVT. Const alert, oriented x3 and no apparent distress Assessment & Plan Assessment/Plan (1) Status post total left knee replacement: PLAN: Status post robotic assisted left total knee replacement, removal left tibial nail, removal for interlocking screws postop day 3. Patient also has acute distal tibial metadiaphyseal junction fracture left lower extremity 1. DVT prophylaxis: Patient will be taking aspirin 81 mg twice daily for 4 weeks postoperatively. Patient will be wearing JUDE hose for 2 weeks postoperatively. 2. Pain medications: Patient will be on Tylenol 1000 mg every 8 hours. Patientwill be taking oxycodone as needed for postoperative pain medications. 3. Constipation: Patient has been placed on MiraLAX by medicine. She has beenusing prune juice. Patient has not been eating. She states she has no appetite. She reports when she is not eating much she can go 5+ days without bowel movement. She currently has some nausea which we will use the Zofran as needed. She denies any abdominal pain. 4. Left distal tibia fracture: CT images were reviewed with Dr. Rodriguez from October 17, 2024. CT did show an acute distal tibia fracture without involvement of articular surface. Patient is currently using the pneumatic foam walking boot. She is toe-touch weightbearing with use of walker for 6 weeks postoperatively. 5. Physical therapy: Patient will now be toe-touch weightbearing on operative side with a walker. She will be toe-touch weightbearing for 6 weeks postoperatively. 6. H&H: 9.4/27.6. At this point due to patient's hemoglobin dropping below 10 we will plan to start anemia protocol with iron and folic acid. 7. Incentive spirometry: Patient was instructed to continue to use the incentive spirometer every hour that they are awake for the first week to exercise the lung and decrease risk of postoperative lung infection 8. Patient has to follow-up for postoperative instructions 9. Doxycycline: Patient will be on doxycycline for 2 weeks postoperatively due to nature of removalsurgery. Patient was educated on the risk of sunburn whiletaking doxycycline. Patient was educated to take a probiotic while taking doxycycline. Patient voiced understanding. 10. Continue postoperative medical treatment per medicine: Case was discussed with medicine with her hyponatremia at 131. Patient has not been eating. Appreciate recommendations from medicine with regards to the hyponatremia and lack of bowel movement. Medicine states they will give patient IV fluids. Continue to monitor. 11. Disposition: At this time I do not feel patient is ready for discharge to [facility] facility. Due to the acute distal tibia fracture this has changed patient's postoperative treatment plan.She has now toe-touch weightbearing on the left lower extremity. She is working with physical therap ywith regards to these restrictions. Patient will require a 3 night midnight stay and plan will be for transition to the transitional care unit on Wednesday, October 21, 2024. Appreciate recommendationsfrom medicine with regards to patient's hyponatremia and medical comorbidities. Her vitals today have been stable. We will repeat lab work tomorrow. Lab orders have been placed in chart. This dictation was created using voice recognition software. Phonetic and/or grammatical errors mayexist. 10/19/24 1345 Cosigner Signature (if applicable): CC: ~ Signed [facility]07-30-2025 Radiology Diagnostic study note [facility] Imaging Services [address] [place] [address] Knee 1 or 2 Views MR#: [id number] Acct: [id number] Name: BERNICE JUAN Rep #: [id number] : 1945 F 79 From: Antonio Caballero MD PCP: Dr. Dago Emery MD Status: ADM I N Study:Knee 1 or 2 Views Date of Exam: Exam# [id number] Ordering Dr: Grayson Rodriguez MD PROCEDURE: KNEE 1 OR 2 VIEWS 10/16/2024 REASON FOR EXAM: ROBOTIC ASSISTED LEFT TOTAL KNEE ARTHROPLASTY WITH TIBIAL NAIL TECHNIQUE: Intraoperative fluoroscopic services provided for tibial nail. Radiation dose: Fluoroscopy: 21.6 seconds. 0.91 mGy COMPARISON: None FINDINGS: Intraoperative fluoroscopic services provided for intramedullary nailing of the tibia. RAD/Knee 1 or 2 Views IMPRESSION: Intraoperative fluoroscopic services provided for intramedullary nailing of the tibia. Reading Location: [id number] CC: Dr. Geo Rodriguez MD; Dr. Dago Emery MD ~ Deployment Engineer: Signed [facility]07-30-2025 Progress note Author See Valente [facility] Note Date/Time October 18, 2024 10:2 8am [facility] Medical Records Department [address] [place] [address] Progress Note - Hospitalist 10/18/24 1015 MR#: [id number] Acct: [id number] Name: BERNICE JUAN Rep #:[id number] : 1945 79 From: See ko MD PCP: Dr. Dago Emery MD Status:ADM I NO Location: [place] [address] Subjective Subjective Had a transient episode of hypotension that resolved with her home blood pressure medications Objective Data Objective Data Vital Signs: Vital Signs Temp Pulse Resp BP Pulse Ox O2 Del Method O2 Flow Rate 98.1 F 64 18 124/69 H 97 Room Air 2 10/18/24 09:57 10/18/24 09:57 10/18/24 09:57 10/18/24 09:57 10/18/24 09:57 10/18/24 09:57 10/16/24 22:13 Oxygen Flow Rate (L/min) 2 Oxygen Delivery Method Room Air Weight: 187 lb 6.287 oz Body Mass Index (BMI) 31.1 Intake & Output: Intake and Output for Last 24 Hours 10/17/24 10/18/24 10/19/24 03:59 03:59 03:59 Intake Total 3050.75 / 3050.75 400 / 400 0 / 0 Output Total 200 / 200 300 / 300 Balance 2850.75 / 2850.75 400 / 400 -300 / -300 Lab / Micro Data 10/18/24 06:14 10/18/24 06:14 Labs: Laboratory Results - last 24 hr 10/18/24 06:14: WBC 6.8, RBC 2.55 L, Hgb 9.4 L, Hct 28.2 L, MCV 110.6 H, MCH 36.9 H, MCHC 33.3, RDW Std Deviation 62.7 H, RDW Coeff of Maury 15.6 H, Plt Count 176, MPV 10.4, Immature Gran % (Auto) 0.300, Neut % (Auto) 73.5 H, Lymph % (Auto) 11.1 L, Cameron % (Auto) 14.6 H, Eos % (Auto) 0.4, Baso % (Auto) 0.1, Absolute Neuts (auto) 5.0, Absolute Lymphs (auto) 0.76 L, Nucleated RBC % 0, Sodium 133, Potassium 3.7, Chloride 99, Carbon Dioxide 22.0, Anion Gap 11, BUN 17, Creatinine 0.92, Estim Creat Clear Calc 51.63, Est GFR (MDRD) Non-Af 63, BUN/Creatinine Ratio 18.0, Glucose 96, Calcium 8.5 Micro: Microbiology 10/11/24 14:20 Nasal Secretion Nasal Screen MRSA/MSSA - Final 07/31/24 14:25 Swab (Method) Nasal Screen MRSA/MSSA - Final Radiography Diagnostic Testing: Radiology Impression Ankle X-Ray 10/17/24 18:40 IMPRESSION: Acute nondisplaced impacted fracture of the distal left tibial metadiaphysis, with no intra-articular extension appreciated. Congruent ankle mortise. Reading Location: [facility] Lower Extremity CT 10/17/24 21:42 IMPRESSION: Acute distal tibial meta diaphyseal junction fracture, no extension to the articular surface. No acute distal fibular fracture associated. No dislocation. Reading Location: [place] [address] Physical Exam Narrative General: Alert, Oriented x3, Cooperative, No apparent distress HEENT: Atraumatic, PERRLA, EOMI, Normocephalic Oral: Moist Mucosa Neck: Supple, No JVD Lungs: Diminished, Normal air movement, No rhonchi, No wheeze, No rales Cardiovascular: Regular rate, Regular Rhythm, Normal S1, Normal S2, No murmurs Abdomen: Soft, Non Tender, Non-Distended, No Hepato-splenomegaly Extremities: No edema, Capillary Refill Less than 3 Seconds Skin: No rashes, No breakdown, dressing CDI, toe-touch weightbearing Musculoskeletal: Ankle pain currently in a boot Neurological: No focal neurological deficits, moves all extremities, left lower extremity limited due to surgery Psych/Mental Status: Normal Affect, Appropriate Assessment & Plan Assessment/Plan (1) Status post total left knee replacement: PLAN: Plan 1. Left knee osteoarthritis status post left total knee replacement on 10/16/2024/ankle fracture ? Pain management per primary ? PT/OT ? Slight drop in her hemoglobin to 9.4, will recheck this afternoon and again inthe morning ? Continue with doxycycline ? Yesterday she was complaining of ankle pain so an x-ray and a CT scan were obtained which demonstrated an acute distal tibial fracture. She is in a walking boot and toe-touch weightbearing on the operative side 2. Removal of left tibial nail and interlocking screws, history of tibial fracture with intramedullary nail placement ? Patient had removal of left tibial nail and 4 interlocking screws during procedure on 10/16 as well. Multiple small incision sites on middle part of anterior carpio noted. Did have some postoperative blood oozing noted so Steri-Strips were placed and bandages with Scott wrap were replaced. ? Dressings are in place 3. Essential HTN ? Blood pressure stable ? She can resume her home blood pressure medications ? Will monitor make adjustments as necessary 4. Myeloproliferative disorder ? Follows with oncology, last office visit on 10/11. ? Has positive JAK2 mutation with persistent thrombocytosis. ? Continue with home hydroxyurea. 5. Hypothyroidism ? Stable ? Continue home Synthroid. DVT: Twice daily aspirin per Ortho Charges/Coding Visit Charges Inpatient E&M: 46257 Subs Hosp L2 10/18/24 1028 <Electronically signed by See Valente MD> Cosigner Signature (if applicable): CC: ~ Signed [facility] Work Phone: [phone] Progress note Author Nela Casanova [facility] Note Date/Time October 18, 2024 8:38 am [facility] Medical Records Department [address] [place] [address] Progress Note - Orthopedic 10/18/2426 MR#: [id number] Acct: [id number] Name: BERNICE JUAN Rep #:[id number] : 1945 79 From: Nela CORNELIUS PCP: Dr. Dago Emery MD Status:ADM I NO Location: [facility]3 BN316-5 Subjective Subjective Patient is anxious and down in bed upon examination. Patient states that she isupset that she cannot bear weight. Patient states that she is very depressed atthis point. Patient states that her pain is controlled. Patient states that she needs to keep the television on and have someone to talk to to avoid gettingtoo sad. Patient denies any new numbness or tingling. Patient denies any shortness of breath, chest pain, calf pain. Patient denies any adverse effects overnight. Objective Data Objective Data Vital Signs: Vital Signs Temp Pulse Resp BP Pulse Ox O2 Del Method O2 Flow Rate 98.4 F 77 16 169/84 H 98 Room Air 2 10/18/24 03:00 10/18/24 03:00 10/18/24 03:00 10/18/24 03:00 10/18/24 03:00 10/18/24 03:00 10/16/24 22:13 Oxygen Flow Rate (L/min) 2 Oxygen Delivery Method Room Air Weight: 85 kg Body Mass Index (BMI) 31.1 Intake & Output: Intake and Output for Last 24 Hours 10/16/24 10/17/24 10/18/24 23:59 23:59 23:59 Intake Total 3050.75 / 3050.75 400 / 400 Output Total 200 / 200 300 / 300 Balance 2850.75 / 2850.75 400 / 400 -300 / -300 Lab / Micro Data 10/18/24 06:14 10/18/24 06:14 Labs: Laboratory Results - last 24 hr 10/18/24 06:14: WBC 6.8, RBC 2.55 L, Hgb 9.4 L, Hct 28.2 L, MCV 110.6 H, MCH 36.9 H, MCHC 33.3, RDW Std Deviation 62.7 H, RDW Coeff of Maury 15.6 H, Plt Count 176, MPV 10.4, Immature Gran % (Auto) 0.300, Neut % (Auto) 73.5 H, Lymph % (Auto) 11.1 L, Cameron % (Auto) 14.6 H, Eos % (Auto) 0.4, Baso % (Auto) 0.1, Absolute Neuts (auto) 5.0, Absolute Lymphs (auto) 0.76 L, Nucleated RBC % 0, Sodium 133, Potassium 3.7, Chloride 99, Carbon Dioxide 22.0, Anion Gap 11, BUN 17, Creatinine 0.92, Estim Creat Clear Calc 51.63, Est GFR (MDRD) Non-Af 63, BUN/Creatinine Ratio 18.0, Glucose 96, Calcium 8.5 Micro: Microbiology 10/11/24 14:20 Nasal Secretion Nasal Screen MRSA/MSSA - Final 07/31/24 14:25 Swab (Method) Nasal Screen MRSA/MSSA - Final Radiography Diagnostic Testing: Radiology Impression Ankle X-Ray 10/17/24 18:40 IMPRESSION: Acute nondisplaced impacted fracture of the distal left tibial metadiaphysis, with no intra-articular extension appreciated. Congruent ankle mortise. Reading Location: [facility] Lower Extremity CT 10/17/24 21:42 IMPRESSION: Acute distal tibial meta diaphyseal junction fracture, no extension to the articular surface. No acute distal fibular fracture associated. No dislocation. Reading Location: [facility] Physical Exam Narrative JUDE hose in place bilaterally SCDs in place bilaterally Scott wrap in place on operative leg for compression. Drainage noted to the distal one third of Mepilex dressing. Drainage noted on dressing medial pin site. Dorsiflexion and plantarflexion are performed without pain or restriction. Sensation intact to light touch. Neurovascularly intact overall. Negative Homans bilaterally. Const alert, oriented x3 and no apparent distress General Appearance: anxious Assessment & Plan Assessment/Plan (1) Status post total left knee replacement: PLAN: Status post robotic assisted left total knee replacement, removal left tibial nail, removal for interlocking screws postop day 1. 1. DVT prophylaxis: Patient will be taking aspirin 81 mg twice daily for 4 weeks postoperatively. Patient will be wearing JUDE hose for 2 weeks postoperatively. 2. Pain medications: Patient will be on Tylenol 1000 mg every 8 hours. Patientwill be taking oxycodone as needed for postoperative pain medications. 3. Constipation: Patient was instructed to take senna as needed until her firstbowel movement to decrease risk of infection following surgery. Patient was instructed if he has not yet had a bowel movement in 3 days to call our office. 4. Patient did have ankle pain yesterday so an x-ray was ordered as well as then a stat CT. Images were reviewed with Dr. Rodriguez. CT did show an acute distal tibia fracture without involvement of articular surface. At this point we will plan to place patient in a walking boot and make toe-touch weightbearingon the operative side. Order for boot was placed. 5. Physical therapy: Patient will now be toe-touch weightbearing on operative side with a walker. 6. H&H: 9.4/28.2. At this point due to patient's hemoglobin dropping below 10 we will plan to start anemia protocol with iron and folic acid. 7. Incentive spirometry: Patient was instructed to continue to use the incentive spirometer every hour that they are awake for the first week to exercise the lung and decrease risk of postoperative lung infection 8. Patient has to follow-up for postoperative instructions 9. Doxycycline: Patient will be on doxycycline for 2 weeks postoperatively due to nature of removal surgery. Patient was educated on the risk of sunburn whiletaking doxycycline. Patient was educated to take a probiotic while taking doxycycline. Patient voiced understanding. 10. Medicine is currently on board and feels that patient is medically stable at this time. 11. Disposition: At this time patient has private paid for a 20-day visit to the TCU. At this time we are currently awaiting getting a bed in TCU. At this time since patient's weightbearing status has been changed we will plan to keep patient for another night to continue working with physical therapy. Patient's weightbearing status was changed to toe-touch weightbearing with the boot on on the operative side. Patient will need physical therapy daily while in TCU. Patient does have 2-week follow-up visit scheduled with our office. Patient wasencouraged to call with any questions, concerns, new problems. 10/18/24 0838 <Electronically signed by Nela CORNELIUS> Cosigner Signature (if applicable): CC: ~ Signed [facility] Work Phone: [phone] Progress note [facility] Medical Records Department [address] [place] [address] Progress Note - Hospitalist 10/18/24 1015 MR#: [id number] Acct: [id number] Name: BERNICE JUAN Rep #:[id number] : 1945 79 From: See ko MD PCP: Dr. Dago Emery MD Status:ADM I NO Location: [place] [address] Subjective Subjective Had a transient episode of hypotension that resolved with her home blood pressure medications Objective Data Objective Data Vital Signs: Vital Signs Temp Pulse Resp BP Pulse Ox O2 Del Method O2 Flow Rate 98.1 F 64 18 124/69 H 97 Room Air 2 10/18/24 09:57 10/18/24 09:57 10/18/24 09:57 10/18/24 09:57 10/18/24 09:57 10/18/24 09:57 10/16/24 22:13 Oxygen Flow Rate (L/min) 2 Oxygen Delivery Method Room Air Weight: 187 lb 6.287 oz Body Mass Index (BMI) 31.1 Intake & Output: Intake and Output for Last 24 Hours 10/17/24 10/18/24 10/19/24 03:59 03:59 03:59 Intake Total 3050.75 / 3050.75 400 / 400 0 / 0 Output Total 200 / 200 300 / 300 Balance 2850.75 / 2850.75 400 / 400 -300 / -300 Lab / Micro Data 10/18/24 06:14 10/18/24 06:14 Labs: Laboratory Results - last 24 hr 10/18/24 06:14: WBC 6.8, RBC 2.55 L, Hgb 9.4 L, Hct 28.2 L, MCV 110.6 H, MCH 36.9 H, MCHC 33.3, RDWStd Deviation 62.7 H, RDW Coeff of Maury 15.6 H, Plt Count 176, MPV 10.4, Immature Gran % (Auto) 0.300, Neut % (Auto) 73.5 H, Lymph % (Auto) 11.1 L, Cameron % (Auto) 14.6 H, Eos % (Auto) 0.4, Baso % (Auto) 0.1, Absolute Neuts (auto) 5.0, Absolute Lymphs (auto) 0.76 L, Nucleated RBC % 0, Sodium 133, Potassium 3.7, Chloride 99, Carbon Dioxide 22.0, Anion Gap 11, BUN 17, Creatinine 0.92, Estim Creat Clear Calc 51.63, Est GFR (MDRD) Non-Af 63, BUN/Creatinine Ratio 18.0, Glucose 96, Calcium 8.5 Micro: Microbiology 10/11/24 14:20 Nasal Secretion Nasal Screen MRSA/MSSA - Final 07/31/24 14:25 Swab (Method) Nasal Screen MRSA/MSSA - Final Radiography Diagnostic Testing: Radiology Impression Ankle X-Ray 10/17/24 18:40 IMPRESSION: Acute nondisplaced impacted fracture of the distal left tibial metadiaphysis, with no intra-articular extension appreciated. Congruent ankle mortise. Reading Location: [facility] Lower Extremity CT 10/17/24 21:42 IMPRESSION: Acute distal tibial meta diaphyseal junction fracture, no extension to the articular surface. No acute distal fibular fracture associated. No dislocation. Reading Location: [place] [address] Physical Exam Narrative General: Alert, Oriented x3, Cooperative, No apparent distress HEENT: Atraumatic, PERRLA, EOMI, Normocephalic Oral: Moist Mucosa Neck: Supple, No JVD Lungs: Diminished, Normal air movement, No rhonchi, No wheeze, No rales Cardiovascular: Regular rate, Regular Rhythm, Normal S1, Normal S2, No murmurs Abdomen: Soft, Non Tender, Non-Distended, No Hepato-splenomegaly Extremities: No edema, Capillary Refill Less than 3 Seconds Skin: No rashes, No breakdown, dressing CDI, toe-touch weightbearing Musculoskeletal: Ankle pain currently in a boot Neurological: No focal neurological deficits, moves all extremities, left lower extremity limited due to surgery Psych/Mental Status: Normal Affect, Appropriate Assessment & Plan Assessment/Plan (1) Status post total left knee replacement: PLAN: Plan 1. Left knee osteoarthritis status post left total knee replacement on 10/16/2024/ankle fracture ? Pain management per primary ? PT/OT ? Slight drop in her hemoglobin to 9.4, will recheck this afternoon and again inthe morning ? Continue with doxycycline ? Yesterday she was complaining of ankle pain so an x-ray and a CT scan were obtained which demonstrated an acute distal tibial fracture. She is in a walking boot and toe-touch weightbearing on the operative side 2. Removal of left tibial nail and interlocking screws, history of tibial fracture with intramedullary nail placement ? Patient had removal of left tibial nail and 4 interlocking screws during procedure on 10/16 as well. Multiple small incision sites on middle part of anterior carpio noted. Did have some postoperative blood oozing noted so Steri- Strips were placed and bandages with Scott wrap were replaced. ? Dressings are in place 3. Essential HTN ? Blood pressure stable ? She can resume her home blood pressure medications ? Will monitor make adjustments as necessary 4. Myeloproliferative disorder ? Follows with oncology, last office visit on 10/11. ? Has positive JAK2 mutation with persistent thrombocytosis. ? Continue with home hydroxyurea. 5. Hypothyroidism ? Stable ? Continue home Synthroid. DVT: Twice daily aspirin per Ortho Charges/Coding Visit Charges Inpatient E&M: 58889 Subs Hosp L2 10/18/24 1028 Cosigner Signature (if applicable): CC: ~ Signed [facility]07-30-2025 Progress note [facility] Medical Records Department [address] [place] [address] Progress Note - Orthopedic 10/18/24825 MR#: [id number] Acct: [id number] Name: BERNICE JUAN Rep #:[id number] : 1945 79 From: Nela CORNELIUS PCP: Dr. Dago Emery MD Status:ADM I NO Location: TN3 HP433-4 Subjective Subjective Patient is anxious and down in bed upon examination. Patient states that she isupset that she cannot bear weight. Patient states that she is very depressed atthis point. Patient states that her pain is controlled. Patient states that she needs to keep the television on and have someone to talk to to avoid gettingtoo sad. Patient denies any new numbness or tingling. Patient denies any shortness ofbreath, chest pain, calf pain. Patient denies any adverse effects overnight. Objective Data Objective Data Vital Signs: Vital Signs Temp Pulse Resp BP Pulse Ox O2 Del Method O2 Flow Rate 98.4 F 77 16 169/84 H 98 Room Air 2 10/18/24 03:00 10/18/24 03:00 10/18/24 03:00 10/18/24 03:00 10/18/24 03:00 10/18/24 03:00 10/16/24 22:13 Oxygen Flow Rate (L/min) 2 Oxygen Delivery Method Room Air Weight: 85 kg Body Mass Index (BMI) 31.1 Intake & Output: Intake and Output for Last 24 Hours 10/16/24 10/17/24 10/18/24 23:59 23:59 23:59 Intake Total 3050.75 / 3050.75 400 / 400 Output Total 200 / 200 300 / 300 Balance 2850.75 / 2850.75 400 / 400 -300 / -300 Lab / Micro Data 10/18/24 06:14 10/18/24 06:14 Labs: Laboratory Results - last 24 hr 10/18/24 06:14: WBC 6.8, RBC 2.55 L, Hgb 9.4 L, Hct 28.2 L, MCV 110.6 H, MCH 36.9 H, MCHC 33.3, RDWStd Deviation 62.7 H, RDW Coeff of Maury 15.6 H, Plt Count 176, MPV 10.4, Immature Gran % (Auto) 0.300, Neut % (Auto) 73.5 H, Lymph % (Auto) 11.1 L, Cameron % (Auto) 14.6 H, Eos % (Auto) 0.4, Baso % (Auto) 0.1, Absolute Neuts (auto) 5.0, Absolute Lymphs (auto) 0.76 L, Nucleated RBC % 0, Sodium 133, Potassium 3.7, Chloride 99, Carbon Dioxide 22.0, Anion Gap 11, BUN 17, Creatinine 0.92, Estim Creat Clear Calc 51.63, Est GFR (MDRD) Non-Af 63, BUN/Creatinine Ratio 18.0, Glucose 96, Calcium 8.5 Micro: Microbiology 10/11/24 14:20 Nasal Secretion Nasal Screen MRSA/MSSA - Final 07/31/24 14:25 Swab (Method) Nasal Screen MRSA/MSSA - Final Radiography Diagnostic Testing: Radiology Impression Ankle X-Ray 10/17/24 18:40 IMPRESSION: Acute nondisplaced impacted fracture of the distal left tibial metadiaphysis, with no intra-articular extension appreciated. Congruent ankle mortise. Reading Location: [id number] Lower Extremity CT 10/17/24 21:42 IMPRESSION: Acute distal tibial meta diaphyseal junction fracture, no extension to the articular surface. No acute distal fibular fracture associated. No dislocation. Reading Location: [place] [address] Physical Exam Narrative JUDE hose in place bilaterally SCDs in place bilaterally Scott wrap in place on operative leg for compression. Drainage noted to the distal one third of Mepilex dressing. Drainage noted on dressing medial pin site. Dorsiflexion and plantarflexion are performed without pain or restriction. Sensation intact to light touch. Neurovascularly intact overall. Negative Homans bilaterally. Const alert, oriented x3 and no apparent distress General Appearance: anxious Assessment & Plan Assessment/Plan (1) Status post total left knee replacement: PLAN: Status post robotic assisted left total knee replacement, removal left tibial nail, removal for interlocking screws postop day 1. 1. DVT prophylaxis: Patient will be taking aspirin 81 mg twice daily for 4 weeks postoperatively. Patient will be wearing JUDE hose for 2 weeks postoperatively. 2. Pain medications: Patient will be on Tylenol 1000 mg every 8 hours. Patientwill be taking oxycodone as needed for postoperative pain medications. 3. Constipation: Patient was instructed to take senna as needed until her firstbowel movement to decrease risk of infection following surgery. Patient was instructed if he has not yet had a bowel movement in 3 days to call our office. 4. Patient did have ankle pain yesterday so an x-ray was ordered as well as then a stat CT. Images were reviewed with Dr. Rodriguez. CT did show an acute distal tibia fracture without involvement of articular surface. At this point we will plan to place patient in a walking boot and make toe-touch weightbearingon the operative side. Order for boot was placed. 5. Physical therapy: Patient will now be toe-touch weightbearing on operative side with a walker. 6. H&H: 9.4/28.2. At this point due to patient's hemoglobin dropping below 10 we will plan to start anemia protocol with iron and folic acid. 7. Incentive spirometry: Patient was instructed to continue to use the incentive spirometer every hour that they are awake for the first week to exercise the lung and decrease risk of postoperative lung infection 8. Patient has to follow-up for postoperative instructions 9. Doxycycline: Patient will be on doxycycline for 2 weeks postoperatively due to nature of removalsurgery. Patient was educated on the risk of sunburn whiletaking doxycycline. Patient was educated to take a probiotic while taking doxycycline. Patient voiced understanding. 10. Medicine is currently on board and feels that patient is medically stable at this time. 11. Disposition: At this time patient has private paid for a 20-day visit to the TCU. At this time we are currently awaiting getting a bed in TCU. At this time since patient's weightbearing status has been changed we will plan to keep patient for another night to continue working with physical therapy. Patient's weightbearing status was changed to toe-touch weightbearing with the boot on on the operative side. Patient will need physical therapy daily while in TCU. Patient does have 2-week follow-up visit scheduled with our office. Patient wasencouraged to call with any questions, concerns, new problems. 10/18/24 0838 Cosigner Signature (if applicable): CC: ~ Signed [facility]07-29-2025 Radiology Diagnostic study note [facility] Imaging Services [address] [place] [address] Extremity Lower without Contra MR#: [id number] Acct: [id number] Name: BERNICE JUAN Rep #: [id number] : 1945 F 79 From: Saida Osman MD PCP: Dr. Dago Emery MD Status: ADM I NO Study:Extremity Lower without Contra Date of Exam: 10/17/24 Exam# [id number] Ordering Dr: Bharathi Casanova PROCEDURE: EXTREMITY LOWER WITHOUT CONTRA 10/17/2024 REASON FOR EXAM: PAIN TECHNIQUE: EXTREMITY LOWER WITHOUT CONTRA Coronal and Sagittal reconstruction series were provided. One or more dose reduction techniques were used (e.g., Automated exposure control, adjustment of the mA and/or kV according to patient size, use of iterative reconstruction technique). RADIATION DOSE SUMMARY: CTDlvol: 15 mGy DLP: 657 mGycm COMPARISON: X-ray 10/17/2024 FINDINGS: Old mid shaft tibia and fibular fractures with complete healing. Remnants of previous tibial nail and fixation screws incidentally noted. In the tibia, distal meta diaphyseal junction, there is an acute fracture, obliquely horizontal in orientation, that does not extend to the articular surface. The distal fibula shows no acute injury. Ankle joint is intact. No acute foot injury noted. CT/Extremity Lower without Contra IMPRESSION: Acute distal tibial meta diaphyseal junction fracture, no extension to the articular surface. No acute distal fibular fracture associated. No dislocation. Reading Location: [place] [address] CC: ADRYAN Hloland; Dr. Dago Emery MD ~ Deployment Engineer: Signed [facility]07-29-2025 Radiology Diagnostic study note [facility] Imaging Services [address] [place] [address] [id number] Ankle min 3 Views MR#: [id number] Acct: [id number] Name: BERNICE JUAN Rep #: [id number] : 1945 F 79 From: Yoshi Montes MD PCP: Dr. Dago Emery MD Status: ADM I NO Study:Ankle min 3 Views Date of Exam: Exam# [id number] Ordering Dr: Bharathi Casanova PROCEDURE: LEFT ANKLE MIN 3 VIEWS 10/17/2024 REASON FOR EXAM: PAIN TECHNIQUE: LEFT ANKLE MIN 3 VIEWS COMPARISON: None. FINDINGS: There is an acute transversely oriented nondisplaced fracture through the distaltibial metadiaphysis. No additional acute fracture appreciated. No dislocation. Ankle mortise is congruent. Chronic fracture deformities of the visualized mid-distal tibial and fibular diaphyses, with ghost tracts reflecting previous orthopedic fixation hardware. Marked diffuse qualitative osteopenia. Mild degenerative changes of the intertarsal joints. Mild dorsal and plantar calcaneal spurring. Generalized soft tissue swelling about the lower extremity/ankle. No radiopaque foreign body. RAD/Ankle min 3 Views IMPRESSION: Acute nondisplaced impacted fracture of the distal left tibial metadiaphysis, with no intra-articular extension appreciated. Congruent ankle mortise. Reading Location: [id number] CC: ADRYAN Holland; Dr. Dago Emery MD ~ Deployment Engineer: Signed [facility]07-29-2025 Progress note Author Nela Casanova [facility] Note Date/Time October 17, 2024 4:03 pm [facility] Medical Records Department [address] [place] [address] Progress Note - Orthopedic 10/17/24 1554 MR#: [id number] Acct: [id number] Name: BERNICE JUAN Rep #:[id number] : 1945 79 From: Nela CORNELIUS PCP: Dr. Dago Emery MD Status:ADM I NO Location: [place] [address] Subjective Subjective Patient appears to be comfortable in bedside chair. Patient states that she didhave an episode of vomiting this morning. Patient states that she is now getting Zofran. Patient states due to the Zofran her nausea and vomiting is nowokay. Patient states that she is getting dizzy when she stands up. Patient states that her pain is relatively controlled at this time. Patient states thatshe worked with physical therapy and does get fatigued easily. Patient denies any shortness of breath, chest pain, calf pain. Patient denies any fevers, chills, signs of infection. Patient denies any new numbness or tingling. Patient denies any adverse events overnight. Objective Data Objective Data Vital Signs: Vital Signs Temp Pulse Resp BP Pulse Ox O2 Del Method O2 Flow Rate 98.0 F 74 15 132/88 H 100 Room Air 2 10/17/24 14:17 10/17/24 14:17 10/17/24 14:17 10/17/24 14:17 10/17/24 14:17 10/17/24 14:17 10/16/24 22:13 Oxygen Flow Rate (L/min) 2 Oxygen Delivery Method Room Air Weight: 85 kg Body Mass Index (BMI) 31.1 Intake & Output: Intake and Output for Last 24 Hours 10/15/24 10/16/24 10/17/24 23:59 23:59 23:59 Intake Total 3050.75 / 3050.75 150 / 150 Output Total 200 / 200 Balance 2850.75 / 2850.75 150 / 150 Lab / Micro Data 10/17/24 05:01 10/17/24 05:01 Labs: Laboratory Results - last 24 hr 10/17/24 05:01: WBC 7.1, RBC 2.74 L, Hgb 10.2 L, Hct 30.5 L, MCV 111.3 H, MCH 37.2 H, MCHC 33.4, RDW Std Deviation 65.1 H, RDW Coeff of Maury 15.9 H, Plt Count 176, MPV 10.6, Sodium 136, Potassium 3.9, Chloride 103, Carbon Dioxide 20.7 L, Anion Gap 12, BUN 14, Creatinine 0.68 L, Estim Creat Clear Calc 59.38, Est GFR (MDRD) Non-Af 87, BUN/Creatinine Ratio 20.7 H, Glucose 135 H, Calcium 8.6 Micro: Microbiology 10/11/24 14:20 Nasal Secretion Nasal Screen MRSA/MSSA - Final 07/31/24 14:25 Swab (Method) Nasal Screen MRSA/MSSA - Final Radiography Diagnostic Testing: Radiology Impression Knee X-Ray 10/16/24 18:50 IMPRESSION: Status post total cemented left knee arthroplasty; intact hardware and expected postop changes. Reading Location: [id number] Physical Exam Narrative JUDE hose in place bilaterally SCDs in place bilaterally Drainage noted to the distal one third of the incision. Drainage also noted over distal pin site incision. Dorsiflexion and plantarflexion are performed without pain or restriction. Sensation intact to light touch. Neurovascularly intact overall. Negative Homans bilaterally. Const alert, oriented x3 and no apparent distress Assessment & Plan Assessment/Plan (1) Status post total left knee replacement: PLAN: Status post robotic assisted left total knee replacement, removal left tibial nail, removal for interlocking screws postop day 1. 1. DVT prophylaxis: Patient will be taking aspirin 81 mg twice daily for 4 weeks postoperatively. Patient will be wearing JUDE hose for 2 weeks postoperatively. 2. Pain medications: Patient will be on Tylenol 1000 mg every 8 hours. Patientwill be taking oxycodone as needed for postoperative pain medications. 3. Constipation: Patient was instructed to take senna as needed until her firstbowel movement to decrease risk of infection following surgery. Patient was instructed if he has not yet had a bowel movement in 3 days to call our office. 4. Patient states that she did have an episode of vomiting this morning. Patient states that she has not been getting medicine for nausea and vomiting has been doing well. Patient was educated she can continue to take Zofran as needed. 5. Physical exam: Patient will continue to be weightbearing as tolerated with walker. 6. H&H: 10.2/30.5. Patient's vitals are stable. At this time hemoglobin is above 10 and we do not need to proceed with anemia protocol. Will continue to monitor. 7. Incentive spirometry: Patient was instructed to continue to use the incentive spirometer every hour that they are awake for the first week to exercise the lung and decrease risk of postoperative lung infection 8. Patient has to follow-up for postoperative instructions 9. Doxycycline: Patient will be on doxycycline for 2 weeks postoperatively due to nature of removal surgery. Patient was educated on the risk of sunburn whiletaking doxycycline. Patient was educated to take a probiotic while taking doxycycline. Patient voiced understanding. 10. Medicine is currently on board and feels that patient is medically stable at this time. 11. Disposition: At this time patient has private paid for a 20-day visit to the TCU. At this time we are currently awaiting getting a bed in TCU. Once patient gets a bed in TCU we will plan to discharge patient to [facility] TCU. Patientwas educated she can continue to take her Zofran as needed for nausea and vomiting. Patient will need to get physical therapy done in the TCU. Patient does have 2-week follow-up visit scheduled to do a wound check. Patient was encouraged to call with any questions, concerns, new problems. 10/17/24 1603 <Electronically signed by Nela CORNELIUS> Cosigner Signature (if applicable): CC: ~ Signed [facility] Work Phone: [phone] 254-890207-29-2025 Progress note [facility] Medical Records Department [address] [place] [address] Progress Note - Orthopedic 10/17/24 1554 MR#: [id number] Acct: [id number] Name: BERNICE JUAN Rep #:[id number] : 1945 79 From: Nela CORNELIUS PCP: Dr. Dago Emery MD Status:ADM I NO Location: TN3 IJ671-8 Subjective Subjective Patient appears to be comfortable in bedside chair. Patient states that she didhave an episode of vomiting this morning. Patient states that she is now getting Zofran. Patient states due to the Zofran her nausea and vomiting is nowokay. Patient states that she is getting dizzy when she stands up. Patient states that her pain is relatively controlled at this time. Patient states thatshe worked with physical therapy and does get fatigued easily. Patient denies any shortness of breath, chest pain,calf pain. Patient denies any fevers, chills, signs of infection. Patient denies any new numbness or tingling. Patient denies any adverse events overnight. Objective Data Objective Data Vital Signs: Vital Signs Temp Pulse Resp BP Pulse Ox O2 Del Method O2 Flow Rate 98.0 F 74 15 132/88 H 100 Room Air 2 10/17/24 14:17 10/17/24 14:17 10/17/24 14:17 10/17/24 14:17 10/17/24 14:17 10/17/24 14:17 10/16/24 22:13 Oxygen Flow Rate (L/min) 2 Oxygen Delivery Method Room Air Weight: 85 kg Body Mass Index (BMI) 31.1 Intake & Output: Intake and Output for Last 24 Hours 10/15/24 10/16/24 10/17/24 23:59 23:59 23:59 Intake Total 3050.75 / 3050.75 150 / 150 Output Total 200 / 200 Balance 2850.75 / 2850.75 150 / 150 Lab / Micro Data 10/17/24 05:01 10/17/24 05:01 Labs: Laboratory Results - last 24 hr 10/17/24 05:01: WBC 7.1, RBC 2.74 L, Hgb 10.2 L, Hct 30.5 L, MCV 111.3 H, MCH 37.2 H, MCHC 33.4, RDW Std Deviation 65.1 H, RDW Coeff of Maury 15.9 H, Plt Count 176, MPV 10.6, Sodium 136, Potassium 3.9,Chloride 103, Carbon Dioxide 20.7 L, Anion Gap 12, BUN 14, Creatinine 0.68 L, Estim Creat Clear Calc 59.38, Est GFR (MDRD) Non-Af 87, BUN/Creatinine Ratio 20.7 H, Glucose 135 H, Calcium 8.6 Micro: Microbiology 10/11/24 14:20 Nasal Secretion Nasal Screen MRSA/MSSA - Final 07/31/24 14:25 Swab (Method) Nasal Screen MRSA/MSSA - Final Radiography Diagnostic Testing: Radiology Impression Knee X-Ray 10/16/24 18:50 IMPRESSION: Status post total cemented left knee arthroplasty; intact hardware and expected postop changes. Reading Location: [facility] Physical Exam Narrative JUDE hose in place bilaterally SCDs in place bilaterally Drainage noted to the distal one third of the incision. Drainage also noted over distal pin site incision. Dorsiflexion and plantarflexion are performed without pain or restriction. Sensation intact to light touch. Neurovascularly intact overall. Negative Homans bilaterally. Const alert, oriented x3 and no apparent distress Assessment & Plan Assessment/Plan (1) Status post total left knee replacement: PLAN: Status post robotic assisted left total knee replacement, removal left tibial nail, removal for interlocking screws postop day 1. 1. DVT prophylaxis: Patient will be taking aspirin 81 mg twice daily for 4 weeks postoperatively. Patient will be wearing JUDE hose for 2 weeks postoperatively. 2. Pain medications: Patient will be on Tylenol 1000 mg every 8 hours. Patientwill be taking oxycodone as needed for postoperative pain medications. 3. Constipation: Patient was instructed to take senna as needed until her firstbowel movement to decrease risk of infection following surgery. Patient was instructed if he has not yet had a bowel movement in 3 days to call our office. 4. Patient states that she did have an episode of vomiting this morning. Patient states that she has not been getting medicine for nausea and vomiting has been doing well. Patient was educated she can continue to take Zofran as needed. 5. Physical exam: Patient will continue to be weightbearing as tolerated with walker. 6. H&H: 10.2.5. Patient's vitals are stable. At this time hemoglobin is above 10 and we do not need to proceed with anemia protocol. Will continue to monitor. 7. Incentive spirometry: Patient was instructed to continue to use the incentive spirometer every hour that they are awake for the first week to exercise the lung and decrease risk of postoperative lung infection 8. Patient has to follow-up for postoperative instructions 9. Doxycycline: Patient will be on doxycycline for 2 weeks postoperatively due to nature of removalsurgery. Patient was educated on the risk of sunburn whiletaking doxycycline. Patient was educated to take a probiotic while taking doxycycline. Patient voiced understanding. 10. Medicine is currently on board and feels that patient is medically stable at this time. 11. Disposition: At this time patient has private paid for a 20-day visit to the TCU. At this time we are currently awaiting getting a bed in TCU. Once patient gets a bed in TCU we will plan to discharge patient to [facility] TCU. Patientwas educated she can continue to take her Zofran as needed for nausea and vomiting. Patient will need to get physical therapy done in the TCU. Patient does have 2- week follow-up visit scheduled to do a wound check. Patient was encouraged to call with any questions, concerns, new problems. 10/17/24 1603 Cosigner Signature (if applicable): CC: ~ Signed [facility]07-29-2025 Progress note Author See Valente [facility] Note Date/Time October 17, 2024 9:03 am [facility] Medical Records Department [address] [place] [address] Progress Note - Hospitalist 10/17/24 0857 MR#: [id number] Acct: [id number] Name: BERNICE JUAN Rep #:[id number] : 1945 79 From: See ko MD PCP: Dr. Dago Emery MD Status:ADM I N Location: [facility]3 GL515-0 Subjective Subjective Doing well, no issues overnight. Pain is controlled. Objective Data Objective Data Vital Signs: Vital Signs Temp Pulse Resp BP Pulse Ox O2 Del Method O2 Flow Rate 97.5 F L 56 L 18 136/77 H 98 Room Air 2 10/17/24 05:39 10/17/24 05:39 10/17/24 05:39 10/17/24 05:39 10/17/24 05:39 10/17/24 05:39 10/16/24 22:13 Oxygen Flow Rate (L/min) 2 Oxygen Delivery Method Room Air Weight: 187 lb 6.287 oz Body Mass Index (BMI) 31.1 Intake & Output: Intake and Output for Last 24 Hours 10/16/24 10/17/24 10/18/24 03:59 03:59 03:59 Intake Total 3050.75 / 3050.75 50 / 50 Output Total 200 / 200 Balance 2850.75 / 2850.75 50 / 50 Lab / Micro Data 10/17/24 05:01 10/17/24 05:01 Labs: Laboratory Results - last 24 hr 10/16/24 11:05: POC Glucose 113 H 10/17/24 05:01: WBC 7.1, RBC 2.74 L, Hgb 10.2 L, Hct 30.5 L, MCV 111.3 H, MCH 37.2 H, MCHC 33.4, RDW Std Deviation 65.1 H, RDW Coeff of Maury 15.9 H, Plt Count 176, MPV 10.6, Sodium 136, Potassium 3.9, Chloride 103, Carbon Dioxide 20.7 L, Anion Gap 12, BUN 14, Creatinine 0.68 L, Estim Creat Clear Calc 59.38, Est GFR (MDRD) Non-Af 87, BUN/Creatinine Ratio 20.7 H, Glucose 135 H, Calcium 8.6 Micro: Microbiology 10/11/24 14:20 Nasal Secretion Nasal Screen MRSA/MSSA - Final 07/31/24 14:25 Swab (Method) Nasal Screen MRSA/MSSA - Final Radiography Diagnostic Testing: Radiology Impression Knee X-Ray 10/16/24 18:50 IMPRESSION: Status post total cemented left knee arthroplasty; intact hardware and expected postop changes. Reading Location: [facility] Physical Exam Narrative General: Alert, Oriented x3, Cooperative, No apparent distress HEENT: Atraumatic, PERRLA, EOMI, Normocephalic Oral: Moist Mucosa Neck: Supple, No JVD Lungs: Diminished, Normal air movement, No rhonchi, No wheeze, No rales Cardiovascular: Regular rate, Regular Rhythm, Normal S1, Normal S2, No murmurs Abdomen: Soft, Non Tender, Non-Distended, No Hepato-splenomegaly Extremities: No edema, Capillary Refill Less than 3 Seconds Skin: No rashes, No breakdown, dressing CDI Musculoskeletal: No Tenderness to Palpation of Joints or Extremities Neurological: No focal neurological deficits, moves all extremities, left lower extremity limited due to surgery Psych/Mental Status: Normal Affect, Appropriate Assessment & Plan Assessment/Plan (1) Status post total left knee replacement: PLAN: Plan 1. Left knee osteoarthritis status post left total knee replacement on 10/16/2024 ? Pain management per primary ? PT/OT ? 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 Stable from a medical perspective for discharge ?Call with questions 2. Removal of left tibial nail and interlocking screws, history of tibial fracture with intramedullary nail placement ? Patient had removal of left tibial nail and 4 interlocking screws during procedure on 10/16 as well. Multiple small incision sites on middle part of anterior carpio noted. Did have some postoperative blood oozing noted so Steri-Strips were placed and bandages with Scott wrap were replaced. ? Dressings are in place 3. Essential HTN ? Blood pressure stable ? She can resume her home blood pressure medications ? Will monitor make adjustments as necessary 4. Myeloproliferative disorder ? Follows with oncology, last office visit on 10/11. ? Has positive JAK2 mutation with persistent thrombocytosis. ? Continue with home hydroxyurea. 5. Hypothyroidism ? Stable ? Continue home Synthroid. DVT: Twice daily aspirin per Ortho Charges/Coding Visit Charges Inpatient E&M: 59834 Subs Hosp L2 10/17/24 0903 <Electronically signed by See Valente MD> Cosigner Signature (if applicable): CC: ~ Signed [facility] Work Phone: 1(135) 450-879607-29-2025 Progress note [facility] Medical Records Department [address] [place] [address] Progress Note - Hospitalist 10/17/2457 MR#: [id number] Acct: [id number] Name: BERNICE JUAN Rep #:[id number] : 1945 79 From: See ko MD PCP: Dr. Dago Emery MD Status:ADM I N Location: [place] [address] Subjective Subjective Doing well, no issues overnight. Pain is controlled. Objective Data Objective Data Vital Signs: Vital Signs Temp Pulse Resp BP Pulse Ox O2 Del Method O2 Flow Rate 97.5 F L 56 L 18 136/77 H 98 Room Air 2 10/17/24 05:39 10/17/24 05:39 10/17/24 05:39 10/17/24 05:39 10/17/24 05:39 10/17/24 05:39 10/16/24 22:13 Oxygen Flow Rate (L/min) 2 Oxygen Delivery Method Room Air Weight: 187 lb 6.287 oz Body Mass Index (BMI) 31.1 Intake & Output: Intake and Output for Last 24 Hours 10/16/24 10/17/24 10/18/24 03:59 03:59 03:59 Intake Total 3050.75 / 3050.75 50 / 50 Output Total 200 / 200 Balance 2850.75 / 2850.75 50 / 50 Lab / Micro Data 10/17/24 05:01 10/17/24 05:01 Labs: Laboratory Results - last 24 hr 10/16/24 11:05: POC Glucose 113 H 10/17/24 05:01: WBC 7.1, RBC 2.74 L, Hgb 10.2 L, Hct 30.5 L, MCV 111.3 H, MCH 37.2 H, MCHC 33.4, RDW Std Deviation 65.1 H, RDW Coeff of Maury 15.9 H, Plt Count 176, MPV 10.6, Sodium 136, Potassium 3.9,Chloride 103, Carbon Dioxide 20.7 L, Anion Gap 12, BUN 14, Creatinine 0.68 L, Estim Creat Clear Calc 59.38, Est GFR (MDRD) Non-Af 87, BUN/Creatinine Ratio 20.7 H, Glucose 135 H, Calcium 8.6 Micro: Microbiology 10/11/24 14:20 Nasal Secretion Nasal Screen MRSA/MSSA - Final 07/31/24 14:25 Swab (Method) Nasal Screen MRSA/MSSA - Final Radiography Diagnostic Testing: Radiology Impression Knee X-Ray 10/16/24 18:50 IMPRESSION: Status post total cemented left knee arthroplasty; intact hardware and expected postop changes. Reading Location: [facility] Physical Exam Narrative General: Alert, Oriented x3, Cooperative, No apparent distress HEENT: Atraumatic, PERRLA, EOMI, Normocephalic Oral: Moist Mucosa Neck: Supple, No JVD Lungs: Diminished, Normal air movement, No rhonchi, No wheeze, No rales Cardiovascular: Regular rate, Regular Rhythm, Normal S1, Normal S2, No murmurs Abdomen: Soft, Non Tender, Non-Distended, No Hepato-splenomegaly Extremities: No edema, Capillary Refill Less than 3 Seconds Skin: No rashes, No breakdown, dressing CDI Musculoskeletal: No Tenderness to Palpation of Joints or Extremities Neurological: No focal neurological deficits, moves all extremities, left lower extremity limited due to surgery Psych/Mental Status: Normal Affect, Appropriate Assessment & Plan Assessment/Plan (1) Status post total left knee replacement: PLAN: Plan 1. Left knee osteoarthritis status post left total knee replacement on 10/16/2024 ? Pain management per primary ? PT/OT ? 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 Stable from a medical perspective for discharge ?Call with questions 2. Removal of left tibial nail and interlocking screws, history of tibial fracture with intramedullary nail placement ? Patient had removal of left tibial nail and 4 interlocking screws during procedure on 10/16 as well. Multiple small incision sites on middle part of anterior carpio noted. Did have some postoperative blood oozing noted so Steri- Strips were placed and bandages with Scott wrap were replaced. ? Dressings are in place 3. Essential HTN ? Blood pressure stable ? She can resume her home blood pressure medications ? Will monitor make adjustments as necessary 4. Myeloproliferative disorder ? Follows with oncology, last office visit on 10/11. ? Has positive JAK2 mutation with persistent thrombocytosis. ? Continue with home hydroxyurea. 5. Hypothyroidism ? Stable ? Continue home Synthroid. DVT: Twice daily aspirin per Ortho Charges/Coding Visit Charges Inpatient E&M: 15053 Subs Hosp L2 10/17/24 0903 Cosigner Signature (if applicable): CC: ~ Signed [facility]07-28-2025 Consult note Author Saulo Bullock [facility] Note Date/Time October 16, 2024 8:29 pm [facility] Medical Records Department [address] [place] [address] Consultation - Hospitalist 10/16/241953 MR#: [id number] Acct: [id number] Name: BERNICE JUAN Rep #:[id number] : 1945 79 From: Saulo desai DO PCP: Dr. Dago Emery MD Status:ADM I N Location: [place] [address] Assessment & Plan Assessment/Plan (1) Status post total left knee replacement: PLAN: Plan Patient is an 79-year-old female who presented [facility] on 10/16/2024 for planned left total knee replacement. Medicine consulted postoperatively for medical management. 1. Left knee osteoarthritis ? Orthopedic surgery primary. S/p left total knee replacement with Dr. Rodriguez on 10/16. Tolerated procedure well, no intraoperative complications noted. Postoperative pain control and further management per orthopedics. Follow-up a.m. CBC and BMP. PT/OT/case management consulted. 2. Removal of left tibial nail and interlocking screws, history of tibial fracture with intramedullary nail placement ? Patient had removal of left tibial nail and 4 interlocking screws during procedure on 10/16 as well. Multiple small incision sites on middle part of anterior carpio noted. Did have some postoperative blood oozing noted so Steri-Strips were placed and bandages with Scott wrap were replaced. Monitor. 3. Hypertension ? Systolic BP in the 120s to 130s postoperatively. Continue home atenolol, amlodipine and losartan with hold parameters in place. 4. Myeloproliferative disorder ? Follows with oncology, last office visit on 10/11. Has positive JAK2 mutation with persistent thrombocytosis. However, this has been well-controlled on home hydroxyurea. CBC on 10/11 with platelet count 244, hemoglobin 12.1 (baseline). Follow-up a.m. CBC. Continue home hydroxyurea. Is typically on baby aspirin daily as well but will be on baby aspirin twice daily for DVT prophylaxis per orthopedics. 5. Hypothyroidism ? Continue home Synthroid. DVT prophylaxis: Baby aspirin twice daily per orthopedics Total clinical time spent by myself addressing the patient's medical issues, reviewing all the data, and collaborating with patient's care team: 35 minutes. HPI Consult Data Date of Consult: 10/16/24 HPI Narrative Reason for Consultation: Postoperative medical management HPI Narrative: BERNICE JUAN, is a 79 F who presented to [facility] on 10/16/2024 for planned left knee replacement. [...] Denied any other pain or discomfort currently. [facility] Medical History Cardiology follow-up encounter Wears glasses Post-menopausal Depression Anxiety Ambulates with cane Walker as ambulation aid Arthritis Migraine headache History of IBS Non-smoker History of edema History of pain when walking Thrombocythemia Hx of fracture of leg Fracture of left hip requiring operative repair Vitamin D deficiency Osteopenia Melanoma in situ Hypothyroidism Hyperlipidemia Hypertension Home Medications ?Medication ?Instructions ?Recorded ?Last Taken ?Type levothyroxine 50 mcg tablet 50 mcg PO DAILY thyroid 10/16/24 History (Levoxyl) losartan 100 mg tablet 100 mg PO DAILY bp 06/06/18 10/16/24 History amlodipine 5 mg tablet 5 mg PO DAILY bp 07/21/18 History cholecalciferol (vitamin D3) 25 1,000 unit PO DAILY pravin michael 10/26/19 10/15/24 History mcg (1,000 unit) tablet atenolol 50 mg tablet 50 mg PO DAILY@0800 30 days #30 10/09/22 10/16/24 Rx tabs aspirin 81 mg chewable tablet 81 mg PO DAILY 09/20/24 10/11/24 History hydroxyurea 500 mg capsule 1,000 mg (2 x 500 mg) PO 10/11/24 Rx EZ #100 caps acetaminophen 500 mg tablet 1,000 mg PO BID PRN inflam mation 10/04/24 10/15/24 History Allergy/AdvReac Type Severity Reaction Status Date / Time promethazine HCl (From Allergy Severe Other Verified 10/16/24 11:13 Phenergan) Penicillins AdvReac Severe Swelling Verified 10/16/24 11:13 red dye AdvReac Severe Unknown Verified 10/16/24 11:13 Tetanus Vaccines and Toxoid AdvReac Intermediate NEEDS Verified 10/16/24 11:13 FOLLOW-UP Family History Father Rheumatoid arthritis Surgical History History of total right knee replacement Hx of right cataract extraction Hx of left cataract extraction History of breast lump removal History of hip surgery Social History household members: none housing: condominium Smoking Status: Never smoker second hand exposure: No alcohol intake: never substance use type: does not use justice/christianity: Judaism seatbelt use: always do you feel safe at home: Yes ROS Constitutional Constitutional: Reports fatigue; Denies chills or fever(s) Eyes Eyes: Denies change in vision Cardiovascular Cardiovascular: Denies chest pain Respiratory/Chest Respiratory/Chest: Denies shortness of breath at rest Gastrointestinal Gastrointestinal: Denies abdominal pain Musculoskeletal Musculoskeletal: Reports joint pain; Denies myalgias Physical Exam Const alert, oriented x3 and no apparent distress Constitutional Narrative: Elderly female, fatigued and somewhat lethargic appearing but otherwise sitting back comfortably in bed, answering questions with short appropriate responses, in no acute distress. General Appearance: cooperative and comfortable Orientation / Consciousness: lethargic HEENT normocephalic, head/scalp atraumatic, hearing grossly normal bilaterally, nasal mucous membranes and turbinates normal and moist oral mucous membranes Eyes PERRL, EOMs intact bilaterally and conjunctivae normal Neck full ROM Chest inspection of chest normal Resp normal respiratory effort, normal air movement, no use of accessory muscles and clear to auscultation bilaterally Cardio regular rate, regular rhythm, no murmurs and peripheral pulses 2+ throughout GI normal to inspection, nondistended, normoactive bowel sounds, soft to palpation,non-tender and non-distended Back/Spine normal ROM Extremity Extremity Narrative: Left knee with dressing and ice pack in place. Left anterior mid carpio area withmild blood oozing from incision sites noted. Neuro moves all extremities and no focal motor deficits Psych mental status grossly normal Lab / Micro Data 07/31/24 14:22 Labs: Laboratory Results - last 24 hr 10/16/24 11:05: POC Glucose 113 H Imaging Radiology Impression Knee X-Ray 10/16/24 18:50 IMPRESSION: Status post total cemented left knee arthroplasty; intact hardware and expected postop changes. Reading Location: [facility] Charges/Coding Visit Charges Inpatient E&M: 79230 Subs Hosp L2 10/16/242028 <Electronically signed by Saulo Bullock DO> Cosigner Signature (if applicable): CC: Dr. Geo Rodriguez MD; Dr. Dago Emery MD~ Signed [facility] Work Phone: 1(809) [phone] Consult note Author Ki Cabrear [facility] Note Date/Time October 16, 2024 6:50 pm [facility] Medical Records Department [address] [place] [address] Anesthesia Postop Eval I 10/16/24 1849 MR#: [id number] Acct: [id number] Name: BERNICE JUAN Rep #:[id number] : 1945 79 From: Ki Cabrera MD PCP: Dr. Dago Emery MD Status:ADM I N Y Race: C Location: [place]3 [place]321 -1 Anesthesia: Postop Eval I Current Vital Signs [...] document: Postop Eval 1 completed: Yes 10/16/241849 <Electronically signed by Ki Cabrera MD > Date _ Ki Cabrera MD Cosigner Signature: Date CC: ~ Signed [facility] Work Phone: 1(275) 602-774707-28-2025 Consult note Author Ki wali [facility] Note Date/Time October 16, 2024 6:50 pm [facility] Medical Records Department [address] [place] [address] Anesthesia Postop Eval II 10/16/241849 MR#: [id number] Acct: [id number] Name: BERNICE JUAN Rep #:[id number] : 1945 79 From: Ki Cabrera MD PCP: Dr. Dago Emery MD Status:ADM I N Y Race: C Location: [place] [address] Anesthesia Postop Eval I Sum Postop Eval [...] 3 nausea: No Vomiting: No 10/16/24 1850 <Electronically signed by Ki Cabrera MD > Date _ Ki Cabrera MD Cosigner Signature: Date CC: ~ Signed [facility] Work Phone: 1(960) 694-690307-28-2025 Consult note [facility] Medical Records Department [address] [place] [address] Consultation - Hospitalist 10/16/241953 MR#: [id number] Acct: [id number] Name: BERNICE JUAN Rep #:[id number] : 1945 79 From: Saulo desai DO PCP: Dr. Dago Emery MD Status:ADM I N Location: [place] [address] Assessment & Plan Assessment/Plan (1) Status post total left knee replacement: PLAN: Plan Patient is an 79-year-old female who presented [facility] on 10/16/2024 for planned left total knee replacement. Medicine consulted postoperatively for medical management. 1. Left knee osteoarthritis ? Orthopedic surgery primary. S/p left total knee replacement with Dr. Rodriguez on 10/16. Tolerated procedure well, no intraoperative complications noted. Postoperative pain control and further management per orthopedics. Follow-up a.m. CBC and BMP. PT/OT/case management consulted. 2. Removal of left tibial nail and interlocking screws, history of tibial fracture with intramedullary nail placement ? Patient had removal of left tibial nail and 4 interlocking screws during procedure on 10/16 as well. Multiple small incision sites on middle part of anterior carpio noted. Did have some postoperative blood oozing noted so Steri- Strips were placed and bandages with Scott wrap were replaced. Monitor. 3. Hypertension ? Systolic BP in the 120s to 130s postoperatively. Continue home atenolol, amlodipine and losartan with hold parameters in place. 4. Myeloproliferative disorder ? Follows with oncology, last office visit on 10/11. Has positive JAK2 mutation with persistent thrombocytosis. However, this has been well-controlled on home hydroxyurea. CBC on 10/11 with platelet count 244, hemoglobin 12.1 (baseline). Follow-up a.m. CBC. Continue home hydroxyurea. Is typically on baby aspirin daily as well but will be on baby aspirin twice daily for DVT prophylaxis per orthopedics. 5. Hypothyroidism ? Continue home Synthroid. DVT prophylaxis: Baby aspirin twice daily per orthopedics Total clinical time spent by myself addressing the patient's medical issues, reviewing all the data, and collaborating with patient's care team: 35 minutes. HPI Consult Data Date of Consult: 10/16/24 HPI Narrative Reason for Consultation: Postoperative medical management HPI Narrative: BERNICE JUAN, is a 79 F who presented to [facility] on 10/16/2024 for planned left knee replacement. Medicine consulted postoperatively for medical management. Patient had left total knee replacement done with Dr. Rodriguez this afternoon. Tolerated procedure well, no intraoperative complications noted. Saw patient at bedside postoperatively. Patient was fatigued and somewhat somnolentappearing but otherwise was answering questions with short appropriate responses. She reported mildleft knee pain currently. Denied left mid carpio pain. Noted that the IV pain medication that was given postoperatively to her was helpful for the pain. Denied any other pain or discomfort currently. [facility] Medical History Cardiology follow-up encounter Wears glasses Post-menopausal Depression Anxiety Ambulates with cane Walker as ambulation aid Arthritis Migraine headache History of IBS Non-smoker History of edema History of pain when walking Thrombocythemia Hx of fracture of leg Fracture of left hip requiring operative repair Vitamin D deficiency Osteopenia Melanoma in situ Hypothyroidism Hyperlipidemia Hypertension Home Medications ?Medication ?Instructions ?Recorded ?Last Taken ?Type levothyroxine 50 mcg tablet 50 mcg PO DAILY thyroid 10/16/24 History (Levoxyl) losartan 100 mg tablet 100 mg PO DAILY bp 06/06/18 10/16/24 History amlodipine 5 mg tablet 5 mg PO DAILY bp 07/21/18 History cholecalciferol (vitamin D3) 25 1,000 unit PO DAILY pravin michael 10/26/19 10/15/24 History mcg (1,000 unit) tablet atenolol 50 mg tablet 50 mg PO DAILY@0800 30 days #30 10/09/22 10/16/24 Rx tabs aspirin 81 mg chewable tablet 81 mg PO DAILY 09/20/24 10/11/24 History hydroxyurea 500 mg capsule 1,000 mg (2 x 500 mg) PO 10/11/24 Rx MOTUTHFRSA #100 caps acetaminophen 500 mg tablet 1,000 mg PO BID PRN inflam mation 10/04/24 10/15/24 History Allergy/AdvReac Type Severity Reaction Status Date / Time promethazine HCl (From Allergy Severe Other Verified 10/16/24 11:13 Phenergan) Penicillins AdvReac Severe Swelling Verified 10/16/24 11:13 red dye AdvReac Severe Unknown Verified 10/16/24 11:13 Tetanus Vaccines and Toxoid AdvReac Intermediate NEEDS Verified 10/16/24 11:13 FOLLOW-UP Family History Father Rheumatoid arthritis Surgical History History of total right knee replacement Hx of right cataract extraction Hx of left cataract extraction History of breast lump removal History of hip surgery Social History household members: none housing: condominium Smoking Status: Never smoker second hand exposure: No alcohol intake: never substance use type: does not use justice/christianity: Judaism seatbelt use: always do you feel safe at home: Yes ROS Constitutional Constitutional: Reports fatigue; Denies chills or fever(s) Eyes Eyes: Denies change in vision Cardiovascular Cardiovascular: Denies chest pain Respiratory/Chest Respiratory/Chest: Denies shortness of breath at rest Gastrointestinal Gastrointestinal: Denies abdominal pain Musculoskeletal Musculoskeletal: Reports joint pain; Denies myalgias Physical Exam Const alert, oriented x3 and no apparent distress Constitutional Narrative: Elderly female, fatigued and somewhat lethargic appearing but otherwise sitting back comfortably inbed, answering questions with short appropriate responses, in no acute distress. General Appearance: cooperative and comfortable Orientation / Consciousness: lethargic HEENT normocephalic, head/scalp atraumatic, hearing grossly normal bilaterally, nasal mucous membranes and turbinates normal and moist oral mucous membranes Eyes PERRL, EOMs intact bilaterally and conjunctivae normal Neck full ROM Chest inspection of chest normal Resp normal respiratory effort, normal air movement, no use of accessory muscles and clear to auscultation bilaterally Cardio regular rate, regular rhythm, no murmurs and peripheral pulses 2+ throughout GI normal to inspection, nondistended, normoactive bowel sounds, soft to palpation,non-tender and non-distended Back/Spine normal ROM Extremity Extremity Narrative: Left knee with dressing and ice pack in place. Left anterior mid carpio area withmild blood oozing from incision sites noted. Neuro moves all extremities and no focal motor deficits Psych mental status grossly normal Lab / Micro Data 07/31/24 14:22 Labs: Laboratory Results - last 24 hr 10/16/24 11:05: POC Glucose 113 H Imaging Radiology Impression Knee X-Ray 10/16/24 18:50 IMPRESSION: Status post total cemented left knee arthroplasty; intact hardware and expected postop changes. Reading Location: [id number] Charges/Coding Visit Charges Inpatient E&M: 20373 Subs Hosp L2 10/16/242028 Cosigner Signature (if applicable): CC: Dr. Geo Rodriguez MD; Dr. Dago Emery MD~ Signed [facility]07-28-2025 Radiology Diagnostic study note [facility] Imaging Services [address] [place] [address] Knee 1 or 2 Views MR#: [id number] Acct: [id number] Name: BERNICE JUAN Rep #: [id number] : 1945 F 79 From: Yoshi Montes MD PCP: Dr. Dago Emery MD Status: ADM I N Study:Knee 1 or 2 Views Date of Exam: Exam# [id number] Ordering Dr: Grayson Rodriguez MD PROCEDURE: LEFT KNEE 1 OR 2 VIEWS 10/16/2024 REASON FOR EXAM: TKA TECHNIQUE: LEFT KNEE 1 OR 2 VIEWS COMPARISON: Left lower extremity CT 08/01/2024 FINDINGS: Postoperative changes status post total cemented left knee arthroplasty. Hardware appears intact without evidence for loosening or failure, with good alignment. Diffuse qualitative osteopenia. Presumed postoperative generalizedsoft tissue swelling and scattered soft tissue gas about the knee. RAD/Knee 1 or 2 Views IMPRESSION: Status post total cemented left knee arthroplasty; intact hardware and expected postop changes. Reading Location: [id number] CC: Dr. Geo Rodriguez MD; Dr. Dago Emery MD ~ Deployment Engineer: Signed [facility]07-28-2025 Consult note [facility] Medical Records Department [address] [place] [address] Anesthesia Postop Eval I 10/16/24 1849 MR#: [id number] Acct: [id number] Name: BERNICE JUAN Rep #:[id number] : 1945 79 From: Ki Cabrera MD PCP: Dr. Dago Emery MD Status:ADM I N Y Race: C Location: [facility]321 -1 Anesthesia: Postop Eval I Current Vital Signs [...] Anesthesia document: Postop Eval 1 completed: Yes 10/16/24 1850 > Date _ Ki Cabrera MD Cosigner Signature: Date CC: ~ Signed [facility]07-28-2025 Consult note [facility] Medical Records Department [address] [place] [address] Anesthesia Postop Eval II 10/16/241849 MR#: [id number] Acct: [id number] Name: BERNICE JUAN Rep #:[id number] : 1945 79 From: Ki Cabrera MD PCP: Dr. Dago Emery MD Status:ADM I N Y Race: C Location: [place] [id number] -1 Anesthesia Postop Eval I Sum Postop Eval [...] Pain Level: 3 nausea: No Vomiting: No 10/16/241849 > Date _ Ki Cabrera MD Cosigner Signature: Date CC: ~ Signed [facility]07-28-2025 Consult note Author Ki Cabrera [facility] Note Date/Time October 16, 2024 10:5 1am [facility] Medical Records Department [address] [place] [address] Pre-Anesthesia Evaluation 10/16/24 1050 MR#: [id number] Acct: [id number] Name: BERNICE JUAN Rep #:[id number] : 1945 79 From: Ki Cabrera MD PCP: Dr. Dago Emery MD Status:REG S DC Y Race: C Location: [place] [address] ASA Classification* ASA Classification ASA Classification: 2 Assessment & Plan Anesthesia* Anesthesia Assessment Anesthesia Assessment: Discussed sedation and/or anesthesia options, risks, benefits, and alternatives with patient/parents/legal guardian/POA. Questions invited. The patient/parents/legal guardian/POA seems to understand and agrees to proceedwith anesthesia plan. Reviewed the physical assessment, medical history, allergy history and patient home medications list prior to surgery/procedure/anesthetic and documented any changes. Performed airway and anesthesia risk assessments. Anesthesia Type Anesthesia Type: Spinal and Block Anesthesia Focused Assessment* Airway Assessment Mouth opens: >3 cm Mallampati Score: II Labs Anesthesia Preop lab: CBC WBC 3.7 K/mm3 (4.4-11.0) L 10/11/24 14:18 10/11/24 RBC 3.26 M/mm3 (4.2-5.4) L 10/11/24 14:18 10/11/24 Hgb 12.1 g/dL (12.0-15.0) 10/11/24 14:18 10/11/24 Hct 36.1 % (37-47) L 10/11/24 14:18 10/11/24 Plt Count 244 K/mm3 (150-450) 10/11/24 14:18 10/11/24 CHEMISTRY Potassium 4.1 mmol/L (3.3-5.1) 10/11/24 14:18 10/11/24 Sodium 136 mmol/L (133-145) 10/11/24 14:18 10/11/24 Magnesium 2.3 mg/dL (1.5-2.2) H 07/31/24 14:22 07/31/24 BUN 15 mg/dL (4-19) 10/11/24 14:18 10/11/24 Creatinine 1.08 mg/dL (0.70-1.20) 10/11/24 14:18 10/11/24 Glucose 129 mg/dL (70-99) H 10/11/24 14:18 10/11/24 POC Glucose 110 mg/dL (74-106) H 09/23/22 06:53 09/23/22 TSH 1.470 uIU/mL (0.300-4.200) 07/31/24 14:22 07/20 05/16 COAG PT 12.6 SECONDS (11.7-14.9) 07/31/24 14:22 Pre-Assessment Diagnosis/Proposed Procedure Planned Operative Procedure(s): ROBOTIC ASSISTED LEFT TOTAL KNEE ARTHROPLASTY Anesthesia History Anesthesia History - mailmaster: Anesthesia History - mailmaster Hx Hospitalization No 10/04/24 13:47 Any Problems [...] take am of surgery PONV PONV - mailmaster: PONV - mailmaster Female Yes 10/04/24 13:47 HX of Motion Sickness Yes 10/04/24 13:47 HX of N/V After Surgery No 10/04/24 13:47 Non-Smoker Yes 10/04/24 13:47 Duration of Surgery greater Yes 10/04/24 13:47 than 60 minutes Number of Risk Factors 4 10/04/24 13:47 PONV Score Severe Risk 10/04/24 13:47 Height & Weight Height & Weight: Anesthesia: Height & Weight Height 5 ft 5 in 10/11/24 15:05 Respiratory Assessment Respiratory Assessment - mailmaster: Respiratory Tract Infection Hx - mailmaster Hx Respiratory Tract Infection No 10/04/24 13:47 STOP Sleep Apnea STOP Sleep Apnea - mailmaster: STOP Sleep Apnea - mailmaster Hx Hypertension Yes: CONTROLLED WITH MED 10/04/24 [...] Tobacco Use History Tobacco Use History - mailmaster: Tobacco Use History - mailmaster Tobacco Use Smoking Status Never smoker 10/04/24 13:47 Hx Tobacco Use No 10/04/24 13:47 Years Smoking Packs Smoked per Day Smoking Cessation Date was within the last 15 years Hx Smoking Cessation Date Hx Smoking Cessation Counseling Hematologic Medial History Hematologic Hx - mailmaster: Hematologic Medical Hx - final inspector shuttle Hx of Blood Transfusion No 10/04/24 13:47 Hx of Transfusion in last 3 No 10/04/24 13:47 Months Date of Last Transfusion (if within last 3 months) Ever experience any problems No 10/04/24 13:47 with transfusion(s)? Specify any problems Hx of Preganancy in last 3 No 10/04/24 13:47 Months Nurse Filling Out Transfusion DSCHRIBER 10/04/24 13:47 & Questions: Date: 10/04/24 10/04/24 13:47 Time: 13:47 10/04/24 13:47 Patient unable to answer at this time (ie. confused, unrespo /Reproduction History /Reproductive History - mailmaster: /Reproductive Hx- mailmaster Hx Now No 10/04/24 13:47 Gestational Age (in weeks): EDC: Hx Hx Para Hx Section SAB No 10/04/24 13:47 Active Medications Active Medications: Current Medications Generic Name Dose Route Start Last Admin Trade Name Freq PRN Reason Stop Dose Admin Lactated Ringer's 1,000 mls @ 125 mls/hr 10/16/24 07:30 IV 10/16/24 15:29 .Q8H KENDRA Insulin Human Lispro 1 - 6 unit 10/16/24 07:30 Insulin Lispro 100 Unit/Ml Insuln.Pen SC Q4H PRN PRN BG>/= 180, SEE PROTOCOL Protocol PFSH Medical History Cardiology follow-up encounter Wears glasses Post-menopausal Depression Anxiety Ambulates with cane Walker as ambulation aid Arthritis Migraine headache History of IBS Non-smoker History of edema History of pain when walking Thrombocythemia Hx of fracture of leg Fracture of left hip requiring operative repair Vitamin D deficiency Osteopenia Melanoma in situ Hypothyroidism Hyperlipidemia Hypertension Home Medications ?Medication ?Instructions ?Recorded ?Last Taken ?Type levothyroxine 50 mcg tablet 50 mcg PO DAILY thyroid 04/19/14 05:30 History (Levoxyl) losartan 100 mg tablet 100 mg PO DAILY bp 06/06/18 12/06/18 07:00 History 100 MG amlodipine 5 mg tablet 5 mg PO DAILY bp 07/21/18 History cholecalciferol (vitamin D3) 25 1,000 unit PO DAILY pravin michael 10/26/19 09/25/22 History mcg (1,000 unit) tablet atenolol 50 mg tablet 50 mg PO DAILY@0800 30 days #30 10/09/22 Unknown Rx tabs aspirin 81 mg chewable tablet 81 mg PO DAILY 09/20/24 Unknown History hydroxyurea 500 mg capsule 1,000 mg (2 x 500 mg) PO Unknown Rx MOTUTHFRSA #100 caps acetaminophen 500 mg tablet 1,000 mg PO BID PRN inflam mation 10/04/24 Unknown History Allergy/AdvReac Type Severity Reaction Status Date / Time promethazine HCl (From Allergy Severe Other Verified 10/11/24 15:04 Phenergan) Penicillins AdvReac Severe Swelling Verified 10/11/24 15:04 red dye AdvReac Severe Unknown Verified 10/11/24 15:04 Tetanus Vaccines and Toxoid AdvReac Intermediate NEEDS Verified 10/11/24 15:04 FOLLOW-UP Family History Father Rheumatoid arthritis Surgical History History of total right knee replacement Hx of right cataract extraction Hx of left cataract extraction History of breast lump removal History of hip surgery Social History household members: [facility] Smoking Status: Never smoker second hand exposure: No alcohol intake: never substance use type: does not use justice/christianity: Judaism seatbelt use: always do you feel safe at home: Yes Review of Systems (Anesthesia) ROS Narrative System reviewed and no additional complaints, except as documented. 10/16/24 1051 <Electronically signed by Ki Cabrera MD > Date _ Ki Cabrera MD Cosigner Signature: Date CC: ~ Signed [facility] Work Phone: [phone]) 540-904507-28-2025 History and physical note Author Nela Rodrigo [facility] Note Date/Time October 16, 2024 10:3 7am [facility] Medical Records Department [address] [place] [address] History & Physical Exam 10/13/24 1655 MR#: [id number] Acct: [id number] Name: BERNICE JUAN Alfred Rep #:[id number] : 1945 79 From: Nela CORNELIUS PCP: Dr. Dago Emery MD Status:REG S HI Location: [place] [address] History and Physical History and Physical Patient Name: Bernice Starks JennifersDOB: 1945 From: NELA CASANOVA PA-C DATE OF [...] LT Hip ORIF - (04/17/2014) OPAL @ [facility] LT Leg - (2007) Knee Replacement RT - (09/23/2022) SAW RT TKR ROBOTIC AT [facility] Anesthesia Complications: None Assistive Devices: Glasses, Walker [...] every day, Aspirin 81 Low Dose 81 mg1 by mouth every day, Amlodipine Besylate 5 [...] lateral collateral laxity. Tenderness palpation of the lateral joint line. Moderate effusion. Range of motion-20-1 15 IMAGING STUDIES: 4 views of the left knee with sunrise, lateral, and bilateral standing AP and tunnel views reviewed reveal valgus alignment and lateral joint space narrowing,subchondral sclerosis and osteophyte formation consistent with severe stage IV tricompartmental osteoarthritis. There are bony erosions in the lateral compartment. Previous tibial nail is appreciated. In the distal aspects of the radiograph he can see previous stable healed tibia fracture. On bilateral standing AP and tunnel films of the contralateral knee taken for comparison show stable well aligned well-fixed total knee replacement. IMPRESSION: Hypertension History of kidney stones Cancer?thrombocytopenia Thyroid disease Hyperlipidemia Vitamin D deficiency Posttraumatic osteoarthritis left knee Fracture left tibia Obesity PLAN: The surgeon did discuss and review all treatment options with the patient including surgical versus nonsurgical. At this time the patient does wish to proceed with the above-stated procedure. Potential risks benefits and complications of the procedure were discussed and reviewed with the patient including but not limited to , infection, nerve and blood vessel damage, persistent pain, numbness, tingling, paresthesias, blood clot, pulmonary embolism, in the requirement for possible further surgery. Patient expressed full understanding. Has no further questions for the doctor. Does agree to proceed with the above-stated procedure, and has signed the appropriate surgery consent form. DVT prophylaxis: Patient will be on aspirin 81 mg twice daily for 4 weeks postoperatively as well as wearing JUDE hose for 2 weeks postoperatively. Pain medications: Patient will be on Tylenol 1000 mg every 8 hours as well as oxycodone as needed. We will avoid anti-inflammatories in this patient as her GFR is less than 60. Patient will be on famotidine for 30 days postoperatively. Patient will be on Zofran as needed for nausea and vomiting. Patient will be on senna for postoperative constipation. ___ I have re-examined the patient. There are no clinical changes since date of exam. ___ See progress notes for changes. ___ Dictated on admission Date: Time: Signature: 10/13/24 1656 <Electronically signed by Nela CORNELIUS> Cosigner Signature (if applicable): CC: ADRYAN Holland; Dr. Geo Rodriguez MD; Dr. Dago mEery MD~ Signed ADDENDUM by Dr. Geo Rodriguez MD on 10/16/24 at 1037 Addendum I have examined the patient the following changes are noted: Patient's preoperative planning indicated that the tibial nail would be interfering with the surgery. Patient has been adequately consented for additionally removing the tibial nail at the time of surgery. This does include additional risk of fracture infection. 10/16/24 1037<Electronically signed by Geo Rodriguez MD> Cosigner Signature (if applicable): cc: ADRYAN Holland; Dr. Geo Rodriguez MD; Dr. Dago Emery MD ~* Signed [facility] Work Phone: [phone] Consult note [facility] Medical Records Department [address] [place] [address] Pre-Anesthesia Evaluation 10/16/24 1050 MR#: [id number] Acct: [id number] Name: BERNICE JUAN Rep #:[id number] : 1945 79 From: Ki Cabrera MD PCP: Dr. Dago Emery MD Status:REG S DC Y Race: C Location: [place] [address] ASA Classification* ASA Classification ASA Classification: 2 Assessment & Plan Anesthesia* Anesthesia Assessment Anesthesia Assessment: Discussed sedation and/or anesthesia options, risks, benefits, and alternatives with patient/parents/legal guardian/POA. Questions invited. The patient/parents/legal guardian/POA seems to understand and agrees to proceedwith anesthesia plan. Reviewed the physical assessment, medical history, allergy history and patient home medications list prior to surgery/procedure/anesthetic and documented any changes. Performed airway and anesthesia risk assessments. Anesthesia Type Anesthesia Type: Spinal and Block Anesthesia Focused Assessment* Airway Assessment Mouth opens: >3 cm Mallampati Score: II Labs Anesthesia Preop lab: CBC WBC 3.7 K/mm3 (4.4-11.0) L 10/11/24 14:18 10/11/24 RBC 3.26 M/mm3 (4.2-5.4) L 10/11/24 14:18 10/11/24 Hgb 12.1 g/dL (12.0-15.0) 10/11/24 14:18 10/11/24 Hct 36.1 % (37-47) L 10/11/24 14:18 10/11/24 Plt Count 244 K/mm3 (150-450) 10/11/24 14:18 10/11/24 CHEMISTRY Potassium 4.1 mmol/L (3.3-5.1) 10/11/24 14:18 10/11/24 Sodium 136 mmol/L (133-145) 10/11/24 14:18 10/11/24 Magnesium 2.3 mg/dL (1.5-2.2) H 07/31/24 14:22 07/31/24 BUN 15 mg/dL (4-19) 10/11/24 14:18 10/11/24 Creatinine 1.08 mg/dL (0.70-1.20) 10/11/24 14:18 10/11/24 Glucose 129 mg/dL (70-99) H 10/11/24 14:18 10/11/24 POC Glucose 110 mg/dL (74-106) H 09/23/22 06:53 09/23/22 TSH 1.470 uIU/mL (0.300-4.200) 07/31/24 14:22 07/20 05/16 COAG PT 12.6 SECONDS (11.7-14.9) 07/31/24 14:22 Pre-Assessment Diagnosis/Proposed Procedure Planned Operative Procedure(s): ROBOTIC ASSISTED LEFT TOTAL KNEE ARTHROPLASTY Anesthesia History Anesthesia History - mailmaster: Anesthesia History - mailmaster Hx Hospitalization No 10/04/24 13:47 Any Problems [...] take am of surgery PONV PONV - mailmaster: PONV - mailmaster Female Yes 10/04/24 13:47 HX of Motion Sickness Yes 10/04/24 13:47 HX of N/V After Surgery No 10/04/24 13:47 Non-Smoker Yes 10/04/24 13:47 Duration of Surgery greater Yes 10/04/24 13:47 than 60 minutes Number of Risk Factors 4 10/04/24 13:47 PONV Score Severe Risk 10/04/24 13:47 Height & Weight Height & Weight: Anesthesia: Height & Weight Height 5 ft 5 in 10/11/24 15:05 Respiratory Assessment Respiratory Assessment - mailmaster: Respiratory Tract Infection Hx - mailmaster Hx Respiratory Tract Infection No 10/04/24 13:47 STOP Sleep Apnea STOP Sleep Apnea - mailmaster: STOP Sleep Apnea - mailmaster Hx Hypertension Yes: CONTROLLED WITH MED 10/04/24 [...] than talking or can be heard through closeddoors)? Tobacco Use History Tobacco Use History - mailmaster: Tobacco Use History - mailmaster Tobacco Use Smoking Status Never smoker 10/04/24 13:47 Hx Tobacco Use No 10/04/24 13:47 Years Smoking Packs Smoked per Day Smoking Cessation Date was within the last 15 years Hx Smoking Cessation Date Hx Smoking Cessation Counseling Hematologic Medial History Hematologic Hx - mailmaster: Hematologic Medical Hx - final inspector shuttle Hx of Blood Transfusion No 10/04/24 13:47 Hx of Transfusion in last 3 No 10/04/24 13:47 Months Date of Last Transfusion (if within last 3 months) Ever experience any problems No 10/04/24 13:47 with transfusion(s)? Specify any problems Hx of Preganancy in last 3 No 10/04/24 13:47 Months Nurse Filling Out Transfusion DSCHRIBER 10/04/24 13:47 & Questions: Date: 10/04/24 10/04/24 13:47 Time: 13:47 10/04/24 13:47 Patient unable to answer at this time (ie. confused, unrespo /Reproduction History /Reproductive History - mailmaster: /Reproductive Hx- mailmaster Hx Now No 10/04/24 13:47 Gestational Age (in weeks): EDC: Hx Hx Para Hx Section SAB No 10/04/24 13:47 Active Medications Active Medications: Current Medications Generic Name Dose Route Start Last Admin Trade Name Freq PRN Reason Stop Dose Admin Lactated Ringer's 1,000 mls @ 125 mls/hr 10/16/24 07:30 IV 10/16/24 15:29 .Q8H KENDRA Insulin Human Lispro 1 - 6 unit 10/16/24 07:30 Insulin Lispro 100 Unit/Ml Insuln.Pen SC Q4H PRN PRN BG>/= 180, SEE PROTOCOL Protocol PFSH Medical History Cardiology follow-up encounter Wears glasses Post-menopausal Depression Anxiety Ambulates with cane Walker as ambulation aid Arthritis Migraine headache History of IBS Non-smoker History of edema History of pain when walking Thrombocythemia Hx of fracture of leg Fracture of left hip requiring operative repair Vitamin D deficiency Osteopenia Melanoma in situ Hypothyroidism Hyperlipidemia Hypertension Home Medications ?Medication ?Instructions ?Recorded ?Last Taken ?Type levothyroxine 50 mcg tablet 50 mcg PO DAILY thyroid 04/19/14 05:30 History (Levoxyl) losartan 100 mg tablet 100 mg PO DAILY bp 06/06/18 12/06/18 07:00 History 100 MG amlodipine 5 mg tablet 5 mg PO DAILY bp 07/21/18 History cholecalciferol (vitamin D3) 25 1,000 unit PO DAILY pravin michael 10/26/19 09/25/22 History mcg (1,000 unit) tablet atenolol 50 mg tablet 50 mg PO DAILY@0800 30 days #30 10/09/22 Unknown Rx tabs aspirin 81 mg chewable tablet 81 mg PO DAILY 09/20/24 Unknown History hydroxyurea 500 mg capsule 1,000 mg (2 x 500 mg) PO Unknown Rx MOTUTHFRSA #100 caps acetaminophen 500 mg tablet 1,000 mg PO BID PRN inflam mation 10/04/24 Unknown History Allergy/AdvReac Type Severity Reaction Status Date / Time promethazine HCl (From Allergy Severe Other Verified 10/11/24 15:04 Phenergan) Penicillins AdvReac Severe Swelling Verified 10/11/24 15:04 red dye AdvReac Severe Unknown Verified 10/11/24 15:04 Tetanus Vaccines and Toxoid AdvReac Intermediate NEEDS Verified 10/11/24 15:04 FOLLOW-UP Family History Father Rheumatoid arthritis Surgical History History of total right knee replacement Hx of right cataract extraction Hx of left cataract extraction History of breast lump removal History of hip surgery Social History household members: none housing: condominium Smoking Status: Never smoker second hand exposure: No alcohol intake: never substance use type: does not use justice/christianity: Judaism seatbelt use: always do you feel safe at home: Yes Review of Systems (Anesthesia) ROS Narrative System reviewed and no additional complaints, except as documented. 10/16/24 1051 > Date _ Ki Cabrera MD Cosigner Signature: Date CC: ~ Signed [facility]07-28-2025 History and physical note [facility] Medical Records Department [address] [place] [address] History & Physical Exam 10/13/24 1655 MR#: [id number] Acct: [id number] Name: BERNICE JUAN Rep #:[id number] : 1945 79 From: Nela CORNELIUS PCP: Dr. Dago Emery MD Status:REG S DC Location: [place] [address] History and Physical History and Physical Patient [...] Patient reports significant exacerbation of her pain nowlimiting her activities of daily living. She reports [...] Surgical Hx: LT Hip ORIF - (04/17/2014) MAYAG @ [facility] LT Leg - (2007) Knee Replacement RT - (09/23/2022) SAW RT TKR ROBOTIC AT [facility] Anesthesia Complications: None Assistive Devices: Glasses, Walker [...] every day, Aspirin 81 Low Dose 81 mg1 by mouth every day, Amlodipine Besylate 5 [...] lateral collateral laxity. Tenderness palpation of the lateral joint line. Moderate effusion. Range of motion-20-1 15 IMAGING STUDIES: 4 views of the left knee with sunrise, lateral, and bilateral standing AP and tunnel views reviewedreveal valgus alignment and lateral joint space narrowing,subchondral sclerosis and osteophyte formation consistent with severe stage IV tricompartmental osteoarthritis. There are bony erosions in the lateral compartment. Previous tibial nail is appreciated. In the distal aspects of the radiograph he can see previous stable healed tibia fracture. On bilateral standing AP and tunnel films of the contralateral knee taken for comparison show stable well aligned well-fixed total knee replacement. IMPRESSION: Hypertension History of kidney stones Cancer?thrombocytopenia Thyroid disease Hyperlipidemia Vitamin D deficiency Posttraumatic osteoarthritis left knee Fracture left tibia Obesity PLAN: The surgeon did discuss and review all treatment options with the patient including surgical versusnonsurgical. At this time the patient does wish to proceed with the above-stated procedure. Potential risks benefits and complications of the procedure were discussed and reviewed with the patient inc luding but not limited to , infection, nerve and blood vessel damage, persistent pain, numbness, tingling, paresthesias, blood clot, pulmonary embolism, in the requirement for possible further surgery. Patient expressed full understanding. Has no further questions for the doctor. Does agree to proceed with the above-stated procedure, and has signed the appropriate surgery consent form. DVT prophylaxis: Patient will be on aspirin 81 mg twice daily for 4 weeks postoperatively as well as wearing JUDE hose for 2 weeks postoperatively. Pain medications: Patient will be on Tylenol 1000 mg every 8 hours as well as oxycodone as needed. We will avoid anti-inflammatories in this patient as her GFR is less than 60. Patient will be on famotidine for 30 days postoperatively. Patient will be on Zofran as needed for nausea and vomiting. Patient will be on senna for postoperative constipation. ___ I have re-examined the patient. There are no clinical changes since date of exam. ___ See progress notes for changes. ___ Dictated on admission Date: Time: Signature: 10/13/24 1656 Cosigner Signature (if applicable): CC: ADRYAN Holland; Dr. Geo Rodriguez MD; Dr. Dago Emery MD~ Signed ADDENDUM by Dr. Geo Rodriguez MD on 10/16/24 at 1037 Addendum I have examined the patient the following changes are noted: Patient's preoperative planning indicated that the tibial nail would be interfering with the surgery. Patient has been adequately consented for additionally removing the tibial nail at the time of surgery. This does include additional risk of fracture infection. 10/16/24 1037 Cosigner Signature (if applicable): cc: ADRYAN Holland; Dr. Geo Rodriguez MD; Dr. Dago Emery MD ~* Signed [facility]07-25-2025 [facility] Medical Records Department [address] [place] [address] History Physical Exam 10/13/241654 MR#: [id number] Acct: [id number] Name: BERNICE JUAN Rep #: [id number] : 1945 79 From: Nela CORNELIUS PCP: Dr. Dago Emery MD Status:[facility] Location: [place] [address] History and Physical History and Physical Patient [...] LT Hip ORIF - (04/17/2014) OPAL @ [facility] LT Leg - (2007) Knee Replacement RT - (09/23/2022) SAW RT TKR ROBOTIC AT [facility] Anesthesia Complications: None Assistive Devices: Glasses, Walker [...] Tenderness palpation of the (more content not included)...[facility] 10-11-2024 Progress [facility] [place] [address] OFFICE VISIT Date of Service: 10/11/24 1453 MR#: [id number] Acct: [id number] Name: BERNICE JUAN Rep #: [id number] : 1945 From: Carolyn Hernandez ch CLOTH TRIMMER HAND CLOTH TRIMMER HAND-C Age/Sex: 79/F Location: [facility] Status: Signed HPI Subjective Date of Service 10/11/24 Chief Complaint Essential thrombocythemia on treatment History of Present Illness 79-year-old female with a medical history notable for morbid obesity, hypertension, dyslipidemia, disabling degenerative joint disease of the lower extremities presenting with an abnormal CBC notablypersistent thrombocytosis. She has no known chronic infectious [...] episodes of overt bleeding, + bruises easily. [facility] Medical History (Updated 10/04/24 @ 13:55 by [...] never substance use type: does not use justice/christianity: Judaism seatbelt use: always do you feel safe [...] to age above 60 inthe presence of Jak2 mutation. Other risk factors for vascular disease [...] in the past year?: No 10/11/24 1522 h CLOTH TRIMMER HAND CLOTH TRIMMER HAND-C> Date _ Carolyn Ruvalcaba NP CLOTH TRIMMER HAND-C Cosigner Signature: Date (if applicable) CC: ~ [facility]07-23-2025 Progress note Author Carolyn Ruvalcaba [facility] Note Date/Time October 11, 2024 3:22 pm [facility] [address] [address] OFFICE VISIT Date of Service: 10/11/24 1453 MR#: [id number] Acct: [id number] Name: BERNICE JUAN Rep #: [id number] : 1945 From: Carolyn Hernandez CLOTH TRIMMER HAND CLOTH TRIMMER HAND-C Age/Sex: 79/F Location: [facility] Status: Signed HPI Subjective Date of Service [...] episodes of overt bleeding, + bruises easily. [facility] Medical History (Updated 10/04/24 @ 13:55 by [...] never substance use type: does not use justice/christianity: Judaism seatbelt use: always do you feel safe [...] 1522 <Electronically signed by Carolyn philippe NP CLOTH TRIMMER HAND-C> Date _ Carolyn Ruvalcaba NP CLOTH TRIMMER HAND-C Cosigner Signature: Date (if applicable) CC: ~ [facility] Work Phone: 1(310) 928-531505-14-2025 Radiology Diagnostic study note [facility] Imaging Services [address] [place], [place] [id number] Extremity Lower without Contra MR#: [id number] Acct: [id number] Name: BERNICE JUAN Rep #: [id number] : 1945 F 79 From: Myron Newton MD PCP: Dr. Dago Emery MD Status: [facility] Study:Extremity Lower without Contra Date of Exam: 08/01/24 Exam# [id number] Ordering Dr: Grayson Rodriguez MD PROCEDURE: EXTREMITY [...] left tibia without apparent complication. Reading Location: [place] [address] CC: Dr. Geo Rodriguez MD; Dr. Dago Emery MD ~ Deployment Engineer: Signed [facility]04-21-2025 Evaluation note* Diagnosis Onset Date Resolution Status Admit Date Essential thrombocythemia chronic July 10, 2024 12:43pm Myeloproliferative disorder chronic July 10, 2024 12:43pm Essential thrombocythemia chronic July 10, 2024 12:45pm Myeloproliferative disorder chronic July 10, 2024 12:45pm Educational circumstance resolved July 10, 2024 12:45pm Erythrocytosis resolved June 12:45pm Leukocytosis resolved July 10, 2024 12:45pm Thrombocytosis deleted June 12:45pm [facility] Work Phone: 1(518) 783-269704-21-2025 Evaluation note* Diagnosis Onset Date Resolution Status [...] 11, 2024 2:15pm Leukocytosis resolved October 11, 2 025 2:15pm Thrombocytosis deleted October 11, 2024 2:15pm [facility] Work Phone: 1(286) 246-364604-21-2025 Evaluation note* Diagnosis Onset Date Resolution Status [...] 11, 2024 2:15pm Leukocytosis resolved October 11, 2 025 2:15pm Thrombocytosis deleted October 11, 2024 2:15pm Status post total left knee replacement acute October 18, 2024 1:14pm [facility] Work Phone: Discharge summary Author Dr. Yanez [facility] April 12, 2022 10:08am Note Date/Time April 12, 2022 8 :45am [facility] Medical Records Department [address] [place] [address] Emergency Department Summary 04/12/22 MR#: [id number] Acct: [id number] Name: BERNICE JUAN Rep #:[id number] : 1945 76 From: Garret Yanez DO [...] states he has a history of osteoarthritis. [facility] Medical History Anxiety Fracture of left hip [...] History of hip surgery [facility] Smoking Status: Never smoker second hand exposure: No alcohol intake: never substance use type: does not use justice/christianity: Judaism seatbelt use: always do you feel safe [...] 9:33 EST Reading Location ID and State: [address] [place] [address] , Service support , Discharge Plan Triage [...] problems, contact your Primary Care Provider. Call [facility] ([phone]) or report to the closest Emergency Room. Call 911 if necessary. 04/12/22 1008 <Electronically signed by Garret Yanez DO> Cosigner Signature (if applicable): CC: Dr. Dago Emery MD ~ Signed [facility] Work Phone: Evaluation note* Diagnosis Onset Date Resolution Status Essential thrombocythemia ch ronic Myeloproliferative disorder chronic Essential thrombocythemia ch ronic Myeloproliferative disorder chronic Educational circumstance res olved Erythrocytosis resolved Leukocytosis resolved [facility] Work Phone: Evaluation note* Diagnosis Onset Date Resolution Status Essential thrombocythemia ch ronic Myeloproliferative disorder chronic Educational circumstance res olved Erythrocytosis resolved Leukocytosis resolved Essential thrombocythemia ch ronic Myeloproliferative disorder chronic [facility] Work Phone: Evaluation note* Diagnosis Onset Date Resolution Status BMI 33.0-33.9,adult acute Debility acute Status post total right knee replacement acute Essential thrombocythemia ch ronic Hyperlipidemia chronic Hypertension chronic Hypothyroidism chronic Essential thrombocythemia ch ronic Myeloproliferative disorder chronic Essential thrombocythemia ch ronic Myeloproliferative disorder chronic Educational circumstance res olved Erythrocytosis resolved Leukocytosis resolved [facility] Work Phone: Hospital Discharge instructionsAmbulatory Orders* 12 Lead EKG [[facility]] Location: None Selected [facility] Work Phone: Reason for referral (narrative)No reason for referral information availableWKing's [facility] [place] Work Phone: Chief Complaint and Reason for [...] pm Thrombocytosis October 11, 2024 2:15 pm Chief Complaint Admit Date 4 MO, LABS July 10, 2024 12: 43pm Encounter for other preprocedural examin ation August 01, 2024 1:51pm PREOP August 01, 2024 2:00p m ABN EKG ([facility]) September 20, 2024 2:25p m 3 MO - LABS October 11, 2024 2:06 pm 3 MO - LABS October 11, 2024 2:15 pm ERAS, ROBOTIC ASSISTED LEFT TOTAL KNEE A RTHROPLAST October 16, 2024 7:54pm ERAS, ROBOTIC ASSISTED LEFT TOTAL KNEE A RTHROPLAST October 17, 2024 8:57am ERAS, ROBOTIC ASSISTED LEFT TOTAL KNEE A RTHROPLAST October 18, 2024 10:15am ERAS, ROBOTIC ASSISTED LEFT TOTAL KNEE A RTHROPLAST October 18, 2024 1:14pm ERAS, ROBOTIC ASSISTED LEFT TOTAL KNEE A RTHROPLAST October 20, 2024 4:40pm Reason for Visit Admit Date Essential thrombocythemia [...] pm Thrombocytosis October 11, 2024 2:15 pm Status post total left knee replacement October 18, 2024 1:14pm Advance Directives Advance Directive Response Recorded Date/ Time Advance Directives Yes April 19, 2014 4:40pm Living Will No December 02, 2018 12:53pm Power of Vegetable Grower No November 12:53pm Advance Directive Response Recorded Date/ Time Advance Directives Yes April 19, 2014 4:40pm Living Will No April 12 8:37am Power of Vegetable Grower No April 12, 2022 8:37am Advance Directive Response Recorded Date/ Time Advance Directives Yes April 19, 2014 5:40pm Living Will No April 12 9:37am Power of Vegetable Grower No April 12, 2022 9:37am Advance Directive Response Recorded Date/ Time Advance Directives Yes April 19, 2014 5:40pm Living Will Yes September 03, 2022 11:45am Power of Vegetable Grower Yes September 03 11:45am Advance Directive Response Recorded Date/ Time Name of Medical Power of Vegetable Grower Dianne Conley , monument [employer] September 28, 2022 1:21pm Advance Directives Yes April 19, 2014 4:40pm Living Will Yes September 28, 2022 1:21pm Power of Vegetable Grower Yes September 28 1:21pm Advance Directive Response Recorded Date/ Time Living Will No June 27, 2018 2:53pm Do you have a Healthcare Power of Vegetable Grower? No June 27, 2018 2:53pm Advance Directives Yes April 19, 2014 5:40pm Advance Directive Response Recorded Date/ Time Living Will No June 27, 2018 2:53pm Do you have a Healthcare Power of Vegetable Grower? No June 27, 2018 2:53pm Do you have a Healthcare Power of Vegetable Grower? Yes October 16, 2024 8:13pm Advance Directives Yes April 19, 2014 5:40pm [...] Care Provider, Referring Provider Active Carolyn Ruvalcaba CLOTH TRIMMER HAND, CLOTH TRIMMER HAND-C Attending Provider Active Team Status: Inactive Member [...] 2024 End: July 10, 2024 Carolyn Ruvalcaba [employer]OTH TRIMMER HAND, CLOTH TRIMMER HAND-C Attending Provider Active Start: July 10, 2024 [...] 2024 End: July 10, 2024 Carolyn Ruvalcaba [employer]OTH TRIMMER HAND, CLOTH TRIMMER HAND-C Attending Provider Active Start: July 10, 2024 [...] 2024 End: October 11, 2024 Carolyn Ruvalcaba [employer]OTH TRIMMER HAND, CLOTH TRIMMER HAND-C Attending Provider Active Start: October 11, 2024 [...] Attending Provider Active Start: October 11, 2024 Team Status: Active Member Role/Relationship Status Dates Dr. Dago Emery MD Primary Care Provider Active Start: October 16, 2024 Dr. Geo Rodriguez MD Admit Provider Active Sta rt: October 16, 2024 Dr. Geo Rodriguez MD Referring Provider Active Start: October 16, 2024 Dr. Geo Rodriguez MD Other Provider Active Sta rt: October 16, 2024 Dr. Saulo Bullock DO Attending Provider Active Start: October 16, 2024 Dr. Saulo Bullock DO Other Provider Active Start: October 16, 2024 Dr. See Valente MD Other Provider Active Start: October 16, 2024 Team Status: Active Member Role/Relationship Status Dates Dr. Dago Emery MD Primary Care Provider Active Start: October 17, 2024 Dr. Geo Rodriguez MD Admit Provider Active Sta rt: October 17, 2024 Dr. Geo Rodriguez MD Referring Provider Active Start: October 17, 2024 Dr. Geo Rodriguez MD Other Provider Active Sta rt: October 17, 2024 Dr. Saulo Bullock DO Other Provider Active Start: October 17, 2024 Dr. See Valente MD Attending Provider Active Start: October 17, 2024 Dr. See Valente MD Other Provider Active Start: October 17, 2024 Team Status: Active Member Role/Relationship Status Dates Dr. Dago Emery MD Primary Care Provider Active Start: October 18, 2024 Dr. Geo Rodriguez MD Admit Provider Active Sta rt: October 18, 2024 Dr. Geo Rodriguez MD Referring Provider Active Start: October 18, 2024 Dr. Geo Rodriguez MD Other Provider Active Sta rt: October 18, 2024 Dr. Saulo Bullock DO Other Provider Active Start: October 18, 2024 Dr. See Valente MD Attending Provider Active Start: October 18, 2024 Dr. See Valente MD Other Provider Active Start: October 18, 2024 Team Status: Inactive Member Role/Relationship Status Dates Dr. Dago Emery MD Primary Care Provider Active Start: October 18, 2024 End: October 21, 2024 Dr. Geo Rodriguez MD Admit Provider Active Sta rt: October 18, 2024 End: October 21, 2024 Dr. Geo Rodriguez MD Attending Provider Active Start: October 18, 2024 End: October 21, 2024 Dr. Geo Rodriguez MD Referring Provider Active Start: October 18, 2024 End: October 21, 2024 Dr. Sofia Carvajal MD Other Provider Active Star t: October 18, 2024 End: October 21, 2024 Dr. Juliane Vilal MD Other Provider Active St art: October 18, 2024 End: October 21, 2024 Team Status: Active Member Role/Relationship Status Dates Dr. Dago Emery MD Primary Care Provider Active Start: October 20, 2024 Dr. Geo Rodriguez MD Admit Provider Active Sta rt: October 20, 2024 Dr. Geo Rodriguez MD Referring Provider Active Start: October 20, 2024 Dr. Geo Rodriguez MD Other Provider Active Sta rt: October 20, 2024 Dr. Saulo Bullock DO Other Provider Active Start: October 20, 2024 Dr. Sofia Carvajal MD Attending Provider Active Start: October 20, 2024 Dr. Sofia Carvajal MD Other Provider Active Star t: October 20, 2024 INFORMATION SOURCE (unrecogn ized section and content) DATE CREATED AUTHOR 10/20/2024 [facility] FOR RECORDS PERTAINING TO PATIENTS WHO ARE [...] BE BASED ON THE PRIMARY CLINICAL RECORDS. [facility] [employer] [facility]. provides no warranty or guarantee of the accuracy or completeness of information in this document.
[2024-10-21 13:51] VITALS: BP 141/70; PULSE 73; RESP 17; TEMP 36.2; O2SAT 96; BMI 32.7
--- OUTSIDE RECORDS SUMMARY | 2024-10-21 14:50 | XMS RPT_ITS | CCD ---
Author Organization [facility] Care Team Providers Care Security Infrastructure Engineer Name Role Phone Dr. Dago Emery Chi Primary Care Provider Rupert, Dr. Dago Nicole Referring Provider Dr. Umang Pate Attending Provider Rupert, Dr. Dago Nicole Primary Care Provider Rupert, Dr. Dago Nicole Referring Provider 1([facility])[phone] Peg JUVENILE JUSTICE SPECIALIST, JUVENILE JUSTICE SPECIALIST-C Carolyn Attending Provider Rupert, Dr. Dago Nicole Primary Care Provider Rupert, Dr. Dago Nicole Referring Provider Dr. Umang Pate Attending Provider Rupert COON, Dr. Dago Nicole Primary Care Provider Dr. Dago Emery MD, Chi Referring Provider Peg JUVENILE JUSTICE SPECIALIST-C, Carolyn Attending Provider Dr. Umang Pate MD [...] Primary Care Unavailable Saulo Bullock Consulting Unavailable KoluisoniSee judd Attending Unavailable Rupert, Dago Chi Primary Care Unavailable Geo Rodriguez Admitting Unavailable Sven, Geo Referring Unavailable KotsoniSee judd F Consulting Unavailable Sven, Geo Consulting Unavailable Rupert, Dago Chi Referring Unavailable Peg JUVENILE JUSTICE SPECIALIST, Carolyn Attending Unavailable Rupert, Dago Chi Primary Care Unavailable Omero Armas Attending Unavailable Rupert, Dago Chi Referring Unavailable Rupert, Dago Chi Primary Care Unavailable Peg JUVENILE JUSTICE SPECIALIST, Carolyn Attending Unavailable Rupert, Dago Chi Referring [...] Allen COON, Dr. Juliane Murguia Other Provider Wei COON, Dr. Black Attending Provider Allergies Allergy Classification Reported Allergen(s) Allergy Type Date of Onset Reaction(s) Facility (11 sources) Contrast media; Translations: [red dye] Propensity to adverse reactions 2 Unknown [facility] Comment on above: mouth to droop (10 sources) Penicillins Propensity to adverse reactions 2 Swelling [facility] (11 sources) Promethazine; Translations: [promethazine HCl] Drug Allergy 2 Other [facility] Comment on above: heightens engery (zi ng) (10 sources) Tetanus Vaccines and Toxoid Propensity to adverse reactions 2 NEEDS FOLLOW-UP [facility] (1 source) Penicillins Drug allergy (disorder) 5 [facility] (1 source) Tetanus Vaccines and Toxoid Drug allergy (disorder) 5 [facility] Medications Current Medications Medication Drug Class(es) [...] hip requiring operative repair polyethylene glycol 3350 57175 mg powder for oral solution (1 source) [...] 1:44pm docusate sodium 50 mg / sennosides, mcfp 8.6 mg oral tablet (12 sources) Start: [...] Range Facility Absolute lymphocyte countOrd ered By: Nela Casanova on 10-21-2024 Lymphocytes Auto (Unsp spec) [#/Vol] 1.47 10*3/uL 0.83-4.51 [facility] Absolute neutrophil countOrd ered By: Nela Casanova on 10-21-2024 Neutrophils (Bld) [#/Vol] 3.0 10*3/uL 2.0-7.7 [facility] Anion gap in Serum or Plasma Ordered By: Nela Casanova on 10-21-2024 Anion gap [Moles/Vol] 10 mmol/L 5-15 [facility] Automated lymphocyte count a s percentage of total leukocytesOrdered By: Nela Casanova on 10-21-2024 Lymphocytes/100 WBC Auto (Unsp spec) 27.2 % 19-41 [facility] BUN/creatinine ratioOrdered By: Nela Casanova on 10-21-2024 Urea nitrogen/Creatinine [Mass ratio] 23.7 mg/mg High 10-20 [facility] Basophil percentageOrdered B y: Nela Casanova on 10-21-2024 Basophils/100 WBC (Bld) 0.4 % 0-1 [facility] Carbon dioxide, total [Moles /volume] in Central venous bloodOrdered By: Nela Casanova on 10-21-2024 CO2 [Moles/Vol] 21.9 mmol/L 21.0-32.0 [facility] Chloride assayOrdered By: Bharathi Casanova on 10-21-2024 Chloride [Moles/Vol] 103 mmol/L 98-108 [facility] [place] Eosinophil percentageOrdered By: Nela Casanova on 10-21-2024 Eosinophils/100 WBC (Bld) 1.9 % 0-5 [facility] Erythrocyte distribution wid th ratioOrdered By: Nela Casanova on 10-21-2024 Erythrocyte distribution width (RBC) [Ratio] 15.8 % High 11.6-14.6 [facility] Erythrocyte distribution wid th standard deviationOrdered By: Nela Casanova on 10-21-2024 Erythrocyte distribution width (RBC) [Ratio] 64.2 fl High 35.1-43.9 [facility] Glomerular filtration rate ( GFR) estimation/1.73 sq m using serum, plasma, or whole bOrdered By: Nela Casanova on 10-21-2024 GFR/1.73 sq M.predicted among non-blacks MDRD (S/P/Bld) [Vol rate/Area] 54 mL/min/{1.73_m2} Low >60 [facility] Comment on above: mL/min/1.73m2 CKD-EP I Creatinine Equation (2020) Hematocrit Auto (Bld) [Volum e fraction]Ordered By: Nela Casanova on 10-21-2024 Hematocrit (Bld) [Volume fraction] 25.5 % Low 37-47 [facility] Hemoglobin measurementOrdere d By: Nela Casanova on 10-21-2024 Hemoglobin (Bld) [Mass/Vol] 8.7 g/dL Low 12.0-15.0 [facility] Immature granulocytes/100 WB C Auto (Bld)Ordered By: Nela Casanova on 10-21-2024 Immature granulocytes/100 WBC (Bld) 0.600 % 0.0-0.9 [facility] Comment on above: IG% - Immature Granu locytes (promyelocytes, myelocytes and metamyelocytes) > 1% indicates that a LEFT SHIFT is Present. MCV (mean corpuscular volume ) determinationOrdered By: Nela Casanova on 10-21-2024 MCV (RBC) [Entitic vol] 110.9 fL High 81-99 [facility] Mean corpuscular hemoglobin (MCH) determinationOrdered By: Nela Casanova on 10-21-2024 MCH (RBC) [Entitic mass] 37.8 pg High 27.0-32.0 [facility] Mean corpuscular hemoglobin concentration (MCHC) determinationOrdered By: Nelamercy Casanova on 10-21-2024 MCHC (RBC) [Mass/Vol] 34.1 g/dL 32-36 [facility] Mean platelet volume determi nationOrdered By: Nela Casanova on 10-21-2024 Platelet mean volume (Bld) [Entitic vol] 10.8 fL 6.2-12.0 [facility] Monocyte percentageOrdered B y: Nela Casanova on 10-21-2024 Monocytes/100 WBC (Bld) 15.2 % High 0-10 [facility] Neutrophil percentageOrdered By: Nela Casanova on 10-21-2024 Neutrophils/100 WBC (Bld) 54.7 % 47-70 [facility] Nucleated red blood cell per centageOrdered By: Nela Casanova on 10-21-2024 Nucleated RBC/100 WBC (Bld) [Ratio] 0 % 0-5 [facility] Platelet countOrdered By: Bharathi Casanova on 10-21-2024 Platelets (Bld) [#/Vol] 224 10*3/uL 150-450 [facility] Potassium measurement (mass/ volume)Ordered By: Nela Casanova on 10-21-2024 Potassium (Unsp spec) [Mass/Vol] 3.8 mmol/L 3.3-5.1 [facility] RBC Auto (Bld) [#/Vol]Ordere d By: Nela Casanova on 08-02-2025 RBC (Bld) [#/Vol] 2.30 10*6/uL Low 4.2-5.4 [facility] Serum creatinine measurement (mass/volume)Ordered By: Nela Casanova on 10-21-2024 Creatinine [Mass/Vol] 1.04 mg/dL 0.70-1.20 [facility] Serum glucose measurement (m ass/volume)Ordered By: Nela Casanova on 10-21-2024 Glucose [Mass/Vol] 86 mg/dL 70-99 [facility] Serum or plasma calcium niels urement (mass/volume)Ordered By: Nela Casanova on 10-21-2024 Calcium [Mass/Vol] 8.5 mg/dL 7.6-11.0 [facility] Serum or plasma urea nitroge n measurement (mass/volume)Ordered By: Nela Casanova on 10-21-2024 Urea nitrogen [Mass/Vol] 25 mg/dL High 4-19 [facility] Sodium levelOrdered By: Tracie Casanova on 10-21-2024 Sodium [Moles/Vol] 135 mmol/L 133-145 [facility] White blood cell (WBC) count Ordered By: Nela Casanova on 10-21-2024 WBC (Bld) [#/Vol] 5.4 10*3/uL 4.4-11.0 [facility] Basic Metabolic Profile (BMP )on 10-19-2024 BUN/CRE 16.2 RATIO Normal 10-20 [facility] Comment on above: Performed By: #### L 500.2500, L100.0100 #### [facility] [address] [place], [address] Calcium [Mass/Vol] 8.9 mg/dL Normal 7.6-11.0 [facility] Comment on above: Performed By: #### L 500.2500, L100.0100 #### [facility] [address] [place], [address] Chloride [Moles/Vol] 98 mmol/L Normal 98-108 [facility] [place] Comment on above: Performed By: #### L 500.2500, L100.0100 #### [facility] [address] [place], [address] CO2 [Moles/Vol] 21.9 mmol/L Normal 21.0-32.0 [facility] Comment on above: Performed By: #### L 500.2500, L100.0100 #### [facility] [address] [place], [address] Creatinine [Mass/Vol] 1.02 mg/dL Normal 0.70-1.20 [facility] Comment on above: Performed By: #### L 500.2500, L100.0100 #### [facility] [address] [place], [address] ECRCL 46.57 ml/min Low 50-250 [facility] Comment on above: Performed By: #### L 500.2500, L100.0100 #### [facility] [address] [place], [address] GAP 11 Normal 5-15 [facility] Comment on above: Performed By: #### L 500.2500, L100.0100 #### [facility] [address] [place], [address] GFR/1.73 sq M.predicted among non-blacks MDRD (S/P/Bld) [Vol rate/Area] 55 mL/min/{1.73_m2} Low >60 [facility] Comment on above: Result Comment: mL/m in/1.73m2 CKD-EPI Creatinine Equation (2020) Performed By: #### L 500.2500, L100.0100 #### [facility] [address] [place], [address] Glucose [Mass/Vol] 94 mg/dL Normal 70-99 [facility] Comment on above: Performed By: #### L 500.2500, L100.0100 #### [facility] [address] [place], [address] Potassium [Moles/Vol] 4.1 mmol/L Normal 3.3-5.1 [facility] Comment on above: Performed By: #### L 500.2500, L100.0100 #### [facility] [address] [place], [id number] Sodium [Moles/Vol] 131 mmol/L Low 133-145 [facility] Comment on above: Performed By: #### L 500.2500, L100.0100 #### [facility] [address] [place], [address] Urea nitrogen [Mass/Vol] 17 mg/dL Normal 4-19 [facility] Comment on above: Performed By: #### L 500.2500, L100.0100 #### [facility] [address] [place], [address] Bedside Glucoseon 10-19-2024 FINGERSTICK GLU 120 mg/dL High 74-106 [facility] Comment on above: Result Comment: TRACEY SALDAÑA OF PATIENT CARE PER NURSING PROTOCOL Performed By: #### L 100.0100, L500.4050 #### [facility] [address] [place], [address] CBC W/Diff, Automatedon 07-3 Absolute Lymph 1.13 X10 3/uL Normal 0.83-4.51 [facility] Comment on above: Performed By: #### L 100.0100, L500.4050 #### [facility] [address] [place], [address] Absolute Neut 5.2 X10 3/uL Normal 2.0-7.7 [facility] Comment on above: Performed By: #### L 100.0100, L500.4050 #### [facility] [address] [place], [address] Basophils/100 WBC (Bld) 0.3 % Normal 0-1 [facility] Comment on above: Performed By: #### L 100.0100, L500.4050 #### [facility] [address] [place], [address] Eosinophils/100 WBC (Bld) 0.9 % Normal 0-5 [facility] Comment on above: Performed By: #### L 100.0100, L500.4050 #### [facility] [address] [place], [address] Erythrocyte distribution width (RBC) [Ratio] 15.5 % High 11.6-14.6 [facility] Comment on above: Performed By: #### L 100.0100, L500.4050 #### [facility] [address] [place], [address] Hematocrit (Bld) [Volume fraction] 27.6 % Low 37-47 [facility] Comment on above: Performed By: #### L 100.0100, L500.4050 #### [facility] [address] [place], [address] Hemoglobin (Bld) [Mass/Vol] 9.4 g/dL Low 12.0-15.0 [facility] Comment on above: Performed By: #### L 100.0100, L500.4050 #### [facility] [address] [place], [address] IG% 0.600 Normal 0.0-0.9 [facility] Comment on above: Result Comment: IG% - Immature Granulocytes (promyelocytes, myelocytes and metamyelocytes) > 1% indicates that a LEFT SHIFT is Present. Performed By: #### L 100.0100, L500.4050 #### [facility] [address] [place], [address] Lymphocytes/100 WBC (Bld) 14.4 % Low 19-41 [facility] Comment on above: Performed By: #### L 100.0100, L500.4050 #### [facility] [address] [place], [id number] MCH (RBC) [Entitic mass] 37.8 pg High 27.0-32.0 [facility] Comment on above: Performed By: #### L 100.0100, L500.4050 #### [facility] [address] [place], [address] MCHC (RBC) [Mass/Vol] 34.1 g/dL Normal 32-36 [facility] Comment on above: Performed By: #### L 100.0100, L500.4050 #### [facility] [address] [place], [id number] MCV (RBC) [Entitic vol] 110.8 fL High 81-99 [facility] Comment on above: Performed By: #### L 100.0100, L500.4050 #### [facility] [address] [place], [address] Monocytes/100 WBC (Bld) 17.1 % High 0-10 [facility] Comment on above: Performed By: #### L 100.0100, L500.4050 #### [facility] [address] [place], [address] Neutrophils/100 WBC (Bld) 66.7 % Normal 47-70 [facility] Comment on above: Performed By: #### L 100.0100, L500.4050 #### [facility] [address] [place], [id number] Nucleated RBC (Bld) [#/Vol] 0 10*3/uL Normal 0-5 [facility] Comment on above: Performed By: #### L 100.0100, L500.4050 #### [facility] [address] [place], [address] Platelet mean volume (Bld) [Entitic vol] 11.0 fL Normal 6.2-12.0 [facility] Comment on above: Performed By: #### L 100.0100, L500.4050 #### [facility] [address] [place], [address] Platelets (Bld) [#/Vol] 181 10*3/uL Normal 150-450 [facility] Comment on above: Performed By: #### L 100.0100, L500.4050 #### [facility] [address] [place], [address] RBC (Bld) [#/Vol] 2.49 10*6/uL Low 4.2-5.4 [facility] Comment on above: Performed By: #### L 100.0100, L500.4050 #### [facility] [address] [place], [address] RDW SD 62.7 fl High 35.1-43.9 [facility] Comment on above: Performed By: #### L 100.0100, L500.4050 #### [facility] [address] [place], [address] WBC (Bld) [#/Vol] 7.8 10*3/uL Normal 4.4-11.0 [facility] Comment on above: Performed By: #### L 100.0100, L500.4050 #### [facility] [address] [place], [address] Absolute Neut Normal 2.0-7.7 [facility] Comment on above: Result Comment: Canc elled via OM: Duplicate Order Performed By: #### L 500.2500, L100.0100 #### [facility] [address] [place], [address] HCT Normal 37-47 [facility] Comment on above: Result Comment: Canc elled via OM: Duplicate Order Performed By: #### L 500.2500, L100.0100 #### [facility] [address] [place], [address] HGB Normal 12.0-15.0 [facility] Comment on above: Result Comment: Canc elled via OM: Duplicate Order Performed By: #### L 500.2500, L100.0100 #### [facility] [address] [place], [address] MCH Normal 27.0-32.0 [facility] Comment on above: Result Comment: Canc elled via OM: Duplicate Order Performed By: #### L 500.2500, L100.0100 #### [facility] [address] [place], [address] MCHC Normal 32-36 [facility] Comment on above: Result Comment: Canc elled via OM: Duplicate Order Performed By: #### L 500.2500, L100.0100 #### [facility] [address] [place], [address] MCV Normal 81-99 [facility] Comment on above: Result Comment: Canc elled via OM: Duplicate Order Performed By: #### L 500.2500, L100.0100 #### [facility] [address] [place], [address] NEUT% Normal 47-70 [facility] Comment on above: Result Comment: Canc elled via OM: Duplicate Order Performed By: #### L 500.2500, L100.0100 #### [facility] [address] [place], [address] PLT Normal 150-450 [facility] Comment on above: Result Comment: Canc elled via OM: Duplicate Order Performed By: #### L 500.2500, L100.0100 #### [facility] [address] [place], [address] RBC Normal 4.2-5.4 [facility] Comment on above: Result Comment: Canc elled via OM: Duplicate Order Performed By: #### L 500.2500, L100.0100 #### [facility] [address] [place], [address] RDW CV Normal 11.6-14.6 [facility] Comment on above: Result Comment: Canc elled via OM: Duplicate Order Performed By: #### L 500.2500, L100.0100 #### [facility] [address] [place], [address] RDW SD Normal 35.1-43.9 [facility] Comment on above: Result Comment: Canc elled via OM: Duplicate Order Performed By: #### L 500.2500, L100.0100 #### [facility] [address] [place], [address] WBC Normal 4.4-11.0 [facility] Comment on above: Result Comment: Canc elled via OM: Duplicate Order Performed By: #### L 500.2500, L100.0100 #### [facility] [address] [place], [id number] [facility]: [facility] Rodriguez on 10-19-2024 Glucose [Mass/Vol] 120 mg/dL High 74-106 [facility] Comment on above: MANAGEMENT OF PATIEN T CARE PER NURSING PROTOCOL Basic Metabolic Profile (BMP )on 10-18-2024 BUN/CRE 18.0 RATIO Normal 10-20 [facility] Comment on above: Performed By: #### L 500.4050, L506.1000, L100.0100, L501.9520 #### [facility] [address] [place], [address] Calcium [Mass/Vol] 8.5 mg/dL Normal 7.6-11.0 [facility] Comment on above: Performed By: #### L 500.4050, L506.1000, L100.0100, L501.9520 #### [facility] [address] [place], [id number] Chloride [Moles/Vol] 99 mmol/L Normal 98-108 [facility] [place] Comment on above: Performed By: #### L 500.4050, L506.1000, L100.0100, L501.9520 #### [facility] [address] [place], [id number] CO2 [Moles/Vol] 22.0 mmol/L Normal 21.0-32.0 [facility] Comment on above: Performed By: #### L 500.4050, L506.1000, L100.0100, L501.9520 #### [facility] [address] [place], [id number] Creatinine [Mass/Vol] 0.92 mg/dL Normal 0.70-1.20 [facility] Comment on above: Performed By: #### L 500.4050, L506.1000, L100.0100, L501.9520 #### [facility] [address] [place], [id number] ECRCL 51.63 ml/min Normal 50-250 [facility] Comment on above: Performed By: #### L 500.4050, L506.1000, L100.0100, L501.9520 #### [facility] [address] [place], [id number] GAP 11 Normal 5-15 [facility] Comment on above: Performed By: #### L 500.4050, L506.1000, L100.0100, L501.9520 #### [facility] [address] [place], [id number] GFR/1.73 sq M.predicted among non-blacks MDRD (S/P/Bld) [Vol rate/Area] 63 mL/min/{1.73_m2} Normal >60 [facility] Comment on above: Result Comment: mL/m in/1.73m2 CKD-EPI Creatinine Equation (2020) Performed By: #### L 500.4050, L506.1000, L100.0100, L501.9520 #### [facility] [address] [place], [address] Glucose [Mass/Vol] 96 mg/dL Normal 70-99 [facility] Comment on above: Performed By: #### L 500.4050, L506.1000, L100.0100, L501.9520 #### [facility] [address] [place], [id number] Potassium [Moles/Vol] 3.7 mmol/L Normal 3.3-5.1 [facility] Comment on above: Performed By: #### L 500.4050, L506.1000, L100.0100, L501.9520 #### [facility] [address] [place], [address] Sodium [Moles/Vol] 133 mmol/L Normal 133-145 [facility] Comment on above: Performed By: #### L 500.4050, L506.1000, L100.0100, L501.9520 #### [facility] [address] [place], [address] Urea nitrogen [Mass/Vol] 17 mg/dL Normal 4-19 [facility] Comment on above: Performed By: #### L 500.4050, L506.1000, L100.0100, L501.9520 #### [facility] [address] [place], [address] CBC W/Diff, Automatedon 07-3 0-2024 Absolute Lymph 0.76 X10 3/uL Low 0.83-4.51 [facility] Comment on above: Performed By: #### L 500.4050, L506.1000, L100.0100, L501.9520 #### [facility] [address] [place], [id number] Absolute Neut 5.0 X10 3/uL Normal 2.0-7.7 [facility] Comment on above: Performed By: #### L 500.4050, L506.1000, L100.0100, L501.9520 #### [facility] [address] [place], [id number] Basophils/100 WBC (Bld) 0.1 % Normal 0-1 [facility] Comment on above: Performed By: #### L 500.4050, L506.1000, L100.0100, L501.9520 #### [facility] [address] [place], [id number] Eosinophils/100 WBC (Bld) 0.4 % Normal 0-5 [facility] Comment on above: Performed By: #### L 500.4050, L506.1000, L100.0100, L501.9520 #### [facility] [address] [place], [id number] Erythrocyte distribution width (RBC) [Ratio] 15.6 % High 11.6-14.6 [facility] Comment on above: Performed By: #### L 500.4050, L506.1000, L100.0100, L501.9520 #### [facility] [address] [place], [id number] Hematocrit (Bld) [Volume fraction] 28.2 % Low 37-47 [facility] Comment on above: Performed By: #### L 500.4050, L506.1000, L100.0100, L501.9520 #### [facility] [address] [place], [id number] Hemoglobin (Bld) [Mass/Vol] 9.4 g/dL Low 12.0-15.0 [facility] Comment on above: Performed By: #### L 500.4050, L506.1000, L100.0100, L501.9520 #### [facility] [address] [place], [address] IG% 0.300 Normal 0.0-0.9 [facility] Comment on above: Result Comment: IG% - Immature Granulocytes (promyelocytes, myelocytes and metamyelocytes) > 1% indicates that a LEFT SHIFT is Present. Performed By: #### L 500.4050, L506.1000, L100.0100, L501.9520 #### [facility] [address] [place], [address] Lymphocytes/100 WBC (Bld) 11.1 % Low 19-41 [facility] Comment on above: Performed By: #### L 500.4050, L506.1000, L100.0100, [id number] #### [facility] [address] [place], [address] MCH (RBC) [Entitic mass] 36.9 pg High 27.0-32.0 [facility] Comment on above: Performed By: #### L 500.4050, L506.1000, L100.0100, L501.9520 #### [facility] [address] [place], [address] MCHC (RBC) [Mass/Vol] 33.3 g/dL Normal 32-36 [facility] Comment on above: Performed By: #### L 500.4050, L506.1000, L100.0100, [id number] #### [facility] [address] [place], [address] MCV (RBC) [Entitic vol] 110.6 fL High 81-99 [facility] Comment on above: Performed By: #### L 500.4050, L506.1000, L100.0100, [id number] #### [facility] [address] [place], [address] Monocytes/100 WBC (Bld) 14.6 % High 0-10 [facility] Comment on above: Performed By: #### L 500.4050, L506.1000, L100.0100, L501.9520 #### [facility] [address] [place], [address] Neutrophils/100 WBC (Bld) 73.5 % High 47-70 [facility] Comment on above: Performed By: #### L 500.4050, L506.1000, L100.0100, L501.9520 #### [facility] [address] [place], [address] Nucleated RBC (Bld) [#/Vol] 0 10*3/uL Normal 0-5 [facility] Comment on above: Performed By: #### L 500.4050, L506.1000, L100.0100, L501.9520 #### [facility] [address] [place], [address] Platelet mean volume (Bld) [Entitic vol] 10.4 fL Normal 6.2-12.0 [facility] Comment on above: Performed By: #### L 500.4050, L506.1000, L100.0100, L501.9520 #### [facility] [address] [place], [address] Platelets (Bld) [#/Vol] 176 10*3/uL Normal 150-450 [facility] Comment on above: Performed By: #### L 500.4050, L506.1000, L100.0100, L501.9520 #### [facility] [address] [place], [address] RBC (Bld) [#/Vol] 2.55 10*6/uL Low 4.2-5.4 [facility] Comment on above: Performed By: #### L 500.4050, L506.1000, L100.0100, L501.9520 #### [facility] [address] [place], [address] RDW SD 62.7 fl High 35.1-43.9 [facility] Comment on above: Performed By: #### L 500.4050, L506.1000, L100.0100, L501.9520 #### [facility] [address] [place], [address] WBC (Bld) [#/Vol] 6.8 10*3/uL Normal 4.4-11.0 [facility] Comment on above: Performed By: #### L 500.4050, L506.1000, L100.0100, L501.9520 #### [facility] [address] [place], [address] HH, Hemoglobin AND Hematocri ton 10-18-2024 Hematocrit (Bld) [Volume fraction] 28.2 % Low 37-47 [facility] Comment on above: Performed By: #### L 100.0600 #### [facility] [address] [place], [address] Hemoglobin (Bld) [Mass/Vol] 9.5 g/dL Low 12.0-15.0 [facility] Comment on above: Performed By: #### L 100.0600 #### [facility] [address] [place], [address] Ankle min 3 Viewson 10-18-19 25 Ankle min [address] [facility] Imaging Services [address] [place] [address] Ankle min 3 Views MR#: [id number] Acct: [id number] Name: BERNICE JUAN Rep #: [id number] : 1945 F 79 From: Smith Montes MD PCP: Dr. Dago Emery MD Status: ADM EDDIE Study: Ankle min 3 Views Date of Exam: 10/17/24 Exam# [id number] Ordering Dr: Nela Casanova PROCEDURE: LEFT ANKLE [...] extension appreciated. Congruent ankle mortise. Reading Location: [id number] CC: ARDYAN Holland; Dr. Dago Emery MD Heavy Coil Winder: Signed Normal [facility] Basic Metabolic Profile (BMP )on 10-17-2024 BUN/CRE 20.7 RATIO High 10-20 [facility] Comment on above: Performed By: #### L 100.0100, L500.4050 #### [facility] [address] [place], [address] Calcium [Mass/Vol] 8.6 mg/dL Normal 7.6-11.0 [facility] Comment on above: Performed By: #### L 100.0100, L500.4050 #### [facility] [address] [place], [address] Chloride [Moles/Vol] 103 mmol/L Normal 98-108 [facility] Comment on above: Performed By: #### L 100.0100, L500.4050 #### [facility] [address] [place], [address] CO2 [Moles/Vol] 20.7 mmol/L Low 21.0-32.0 [facility] Comment on above: Performed By: #### L 100.0100, L500.4050 #### [facility] [address] [place], [address] Creatinine [Mass/Vol] 0.68 mg/dL Low 0.70-1.20 [facility] Comment on above: Performed By: #### L 100.0100, L500.4050 #### [facility] [address] [place], [address] ECRCL 59.38 ml/min Normal 50-250 [facility] Comment on above: Performed By: #### L 100.0100, L500.4050 #### [facility] [address] [place], [address] GAP 12 Normal 5-15 [facility] Comment on above: Performed By: #### L 100.0100, L500.4050 #### [facility] [address] [place], [address] GFR/1.73 sq M.predicted among non-blacks MDRD (S/P/Bld) [Vol rate/Area] 87 mL/min/{1.73_m2} Normal >60 [facility] Comment on above: Result Comment: mL/m in/1.73m2 CKD-EPI Creatinine Equation (2020) Performed By: #### L 100.0100, L500.4050 #### [facility] [address] [place], [address] Glucose [Mass/Vol] 135 mg/dL High 70-99 [facility] Comment on above: Performed By: #### L 100.0100, L500.4050 #### [facility] [address] [place], [address] Potassium [Moles/Vol] 3.9 mmol/L Normal 3.3-5.1 [facility] Comment on above: Performed By: #### L 100.0100, L500.4050 #### [facility] [address] [place], [address] Sodium [Moles/Vol] 136 mmol/L Normal 133-145 [facility] Comment on above: Performed By: #### L 100.0100, L500.4050 #### [facility] [address] [place], [address] Urea nitrogen [Mass/Vol] 14 mg/dL Normal 4-19 [facility] Comment on above: Performed By: #### L 100.0100, L500.4050 #### [facility] [address] [place], [address] CBC-Complete Blood Cnt No Di ffon 10-17-2024 Erythrocyte distribution width (RBC) [Ratio] 15.9 % High 11.6-14.6 [facility] Comment on above: Performed By: #### L 100.0100, L500.4050 #### [facility] [address] [place], [address] Hematocrit (Bld) [Volume fraction] 30.5 % Low 37-47 [facility] Comment on above: Performed By: #### L 100.0100, L500.4050 #### [facility] [address] [place], [address] Hemoglobin (Bld) [Mass/Vol] 10.2 g/dL Low 12.0-15.0 [facility] Comment on above: Performed By: #### L 100.0100, L500.4050 #### [facility] [address] [place], [address] MCH (RBC) [Entitic mass] 37.2 pg High 27.0-32.0 [facility] Comment on above: Performed By: #### L 100.0100, L500.4050 #### [facility] [address] [place], [id number] MCHC (RBC) [Mass/Vol] 33.4 g/dL Normal 32-36 [facility] Comment on above: Performed By: #### L 100.0100, L500.4050 #### [facility] [address] [place], [id number] MCV (RBC) [Entitic vol] 111.3 fL High 81-99 [facility] Comment on above: Performed By: #### L 100.0100, L500.4050 #### [facility] [address] [place], [id number] Platelet mean volume (Bld) [Entitic vol] 10.6 fL Normal 6.2-12.0 [facility] Comment on above: Performed By: #### L 100.0100, L500.4050 #### [facility] [address] [place], [id number] Platelets (Bld) [#/Vol] 176 10*3/uL Normal 150-450 [facility] Comment on above: Performed By: #### L 100.0100, L500.4050 #### [facility] [address] [place], [id number] RBC (Bld) [#/Vol] 2.74 10*6/uL Low 4.2-5.4 [facility] Comment on above: Performed By: #### L 100.0100, L500.4050 #### [facility] [address] [place], [id number] RDW SD 65.1 fl High 35.1-43.9 [facility] Comment on above: Performed By: #### L 100.0100, L500.4050 #### [facility] [address] [place], [id number] WBC (Bld) [#/Vol] 7.1 10*3/uL Normal 4.4-11.0 [facility] Comment on above: Performed By: #### L 100.0100, L500.4050 #### [facility] [address] [place], [place], [address] Extremity Lower without Cont raon 10-17-2024 Extremity Lower without Contra [facility] Imaging Services [address] [place] [address] Extremity Lower without Contra MR#: [id number] Acct: [id number] Name: BERNICE JUAN Rep #: [id number] : 1945 F 79 From: Neftaly Osman MD PCP: Dr. Dago Emery MD Status: ADM EDDIE Study: Extremity Lower without Contra Date of Exam: 0 10/17/24 Exam# [id number] Ordering Dr: Nela Casanova PROCEDURE: EXTREMITY LOWER [...] fibular fracture associated. No dislocation. Reading Location: [place] [address] CC: ADRYAN Holland; Dr. Dago Emery MD Heavy Coil Winder: Signed Normal [facility] Bedside Glucoseon 10-16-2024 FINGERSTICK GLU 113 mg/dL High 74-106 [facility] Comment on above: Result Comment: TRACEY SALDAÑA OF PATIENT CARE PER NURSING PROTOCOL Performed By: #### L 500.4050, L506.1000, L100.0100, L501.9520 #### [facility] [address] [place], [address] Consultation - Hospitaliston 10-16-2024 Consultation - Hospitalist [facility] Medical Records Department [address] [place] [address] Consultation - Hospitalist 10/16/241953 MR#: [id number] Acct: [id number] Name: BERNICE JUAN Rep #: [id number] : 1945 79 From: Saulo Bullock DO PCP: Dr. Dago Emery MD Status:ADM IN Location: [place] [address] Assessment Plan Assessment/Plan (1) Status post total left knee replacement: PLAN: Plan Patient is an 79-year-old female who presented [facility] on 10/16/2024 for planned left total knee [...] is a 79 F who presented to [facility] on 10/16/2024 for planned left knee replacement. [...] Denied any other pain or discomfort currently. [facility] Medical History Cardiology follow-up encounter Wears glasses [...] Surgical History (more content not included)... Normal [facility] Knee 1 or 2 Viewson 10-17-19 Knee 1 or [address] [facility] Imaging Services [address] [place] [address] Knee 1 or 2 Views MR#: [id number] Acct: [id number] Name: BERNICE JUAN Rep #: [id number] : 1945 F 79 From: Smith Montes MD PCP: Dr. Dago Emery MD Status: ADM IN Study: Knee 1 or 2 Views Date of Exam: 10/16/24 Exam# [id number] Ordering Dr: Geo Rodriguez MD PROCEDURE: LEFT [...] hardware and expected postop changes. Reading Location: [facility] CC: Dr. Geo Rodriguez MD; Dr. Dago Emery MD Heavy Coil Winder: Signed [facility] Knee 1 or 2 Views [facility] Imaging Services [address] [place] [address] Knee 1 or 2 Views MR#: [id number] Acct: [id number] Name: BERNICE JUAN Rep #: [id number] : 1945 F 79 From: Raciel mcgee MD PCP: Dr. Dago Emery MD Status: ADM IN Study: Knee 1 or 2 Views Date of Exam: 10/16/24 Exam# [id number] Ordering Dr: Geo Rodriguez MD PROCEDURE: KNEE [...] intramedullary nailing of the tibia. Reading Location: [id number] CC: Dr. eGo Rodriguez MD; Dr. Dago Emery MD Heavy Coil Winder: Signed [facility] MR/POSTOP.ANEon 10-16-2024 [facility] [address] [place] [address] Anesthesia Postop Eval I 10/16/24 1849 MR#: [id number] Acct: [id number] Name: BERNICE JUAN Rep #: [id number] : 1945 79 From: Ki Cabrera MD PCP: Dr. Dago Emery MD Status:ADM IN Y Race: C Location: [place] [address] Anesthesia: Postop Eval I Current Vital Signs [...] MD Cosigner Signature: Date CC: Signed Normal [facility] MR/[id number] 10-16-2024 [facility] Medical Records Department [address] [place] [address] Anesthesia Postop Eval II 10/16/241849 MR#: [id number] Acct: [id number] Name: BERNICE JUAN Rep #: [id number] : 1945 79 From: Ki Cabrera MD PCP: Dr. Dago Emery MD Status:ADM IN Y Race: C Location: [place] [address] Anesthesia Postop Eval I Sum Postop Eval [...] Ki Germain Signature: Date CC: Signed Normal [facility] MRSA/SAID NASAL SCREENon MRSA+SAID SCRN Negative Normal [facility] Comment on above: Performed By: #### L 500.4050, L506.1000, L100.0100, L501.9520 #### [facility] [address] [place], [address] Absolute lymphocyte countOrd ered By: Carolyn Ruvalcaba on 10-11-2024 Lymphocytes Auto (Unsp spec) [#/Vol] 1.13 10*3/uL 0.83-4.51 [facility] Absolute neutrophil countOrd ered By: Carolyn Ruvalcaba on 10-11-2024 Neutrophils (Bld) [#/Vol] 2.1 10*3/uL 2.0-7.7 [facility] Anion gap in Serum or Plasma Ordered By: Carolyn Ruvalcaba on 10-11-2024 Anion gap [Moles/Vol] 13 mmol/L 5-15 [facility] Automated lymphocyte count a s percentage of total leukocytesOrdered By: Carolyn Ruvalcaba on 10-11-2024 Lymphocytes/100 WBC Auto (Unsp spec) 30.5 % -41 [facility] BUN/creatinine ratioOrdered By: Carolyn Ruvalcaba on 10-11-2024 Urea nitrogen/Creatinine [Mass ratio] 14.2 mg/mg 10-20 [facility] Basophil percentageOrdered B y: Carolyn Ruvalcaba on 10-11-2024 Basophils/100 WBC (Bld) 0.3 % 0-1 [facility] Bilirubin, totalOrdered By: Carolyn Ruvalcaba on 10-11-2024 Bilirubin [Mass/Vol] 0.40 mg/dL 0.00-1.30 [facility] Blood manual differential co mment interpretation (narrative result)Ordered By: Carolyn Ruvalcaba on 10-11-2024 Manual differential comment Jack (Bld) [Interp] SCANNED [facility] Blood polychromasia detectio n by light microscopyOrdered By: Carolyn Ruvalcaba on 10-11-2024 Polychromasia LM Ql (Bld) 1+ [facility] CBC W/Diff, Automatedon 09-20 Anisocytosis Ql (Bld) 1+ Normal [facility] Comment on above: Performed By: #### L 500.4050, L506.1000, L100.0100, L501.9520 #### [facility] [address] [place], [address] POLYCHROMASIA 1+ Normal [facility] Comment on above: Performed By: #### L 500.4050, L506.1000, L100.0100, L501.9520 #### [facility] [address] [place], [address] PLT EST ADEQUATE Normal ADEQ [facility] Comment on above: Performed By: #### L 500.4050, L506.1000, L100.0100, L501.9520 #### [facility] [address] [place], [address] SMEAR COMMENT SCANNED Normal [facility] Comment on above: Performed By: #### L 500.4050, L506.1000, L100.0100, L501.9520 #### [facility] [address] [place], [address] Carbon dioxide, total [Moles /volume] in Central venous bloodOrdered By: Carolyn Peg on 10-11-2024 CO2 [Moles/Vol] 21.4 mmol/L 21.0-32.0 [facility] Chloride assayOrdered By: Ty ra Ruvalcaba on 10-11-2024 Chloride [Moles/Vol] 102 mmol/L 98-108 [facility] Comprehensive Metabolic Prof ilon 10-11-2024 Albumin [Mass/Vol] 4.0 g/dL Normal 3.4-4.8 [facility] Comment on above: Order Comment: CC: C MP CBCD TO DR RODRIGUEZ Performed By: #### L 500.4050, L506.1000, L100.0100, L501.9520 #### [facility] [address] [place], [address] Albumin/Globulin [Mass ratio] 1.4 {ratio} Normal 0.9-2.4 [facility] Comment on above: Order Comment: CC: C MP CBCD TO DR RODRIGUEZ Performed By: #### L 500.4050, L506.1000, L100.0100, L501.9520 #### [facility] [address] [place], [address] ALK PHOS 82 U/L Normal 35-104 [facility] Comment on above: Order Comment: CC: C MP CBCD TO DR RODRIGUEZ Performed By: #### L 500.4050, L506.1000, L100.0100, L501.9520 #### [facility] [address], [address] ALT [Catalytic activity/Vol] 14 U/L Normal <=34 [facility] Comment on above: Order Comment: CC: C MP CBCD TO DR RODRIGUEZ Performed By: #### L 500.4050, L506.1000, L100.0100, L501.9520 #### [facility] [address] [place], [address] AST [Catalytic activity/Vol] 22 U/L Normal <=31 [facility] Comment on above: Order Comment: CC: C MP CBCD TO DR RODRIGUEZ Performed By: #### L 500.4050, L506.1000, L100.0100, L501.9520 #### [facility] [address] [place], [address] Bilirubin [Mass/Vol] 0.40 mg/dL Normal 0.00-1.30 [facility] Comment on above: Order Comment: CC: C MP CBCD TO DR RODRIGUEZ Performed By: #### L 500.4050, L506.1000, L100.0100, L501.9520 #### [facility] [address] [place], [address] BUN/CRE 14.2 RATIO Normal 10-20 [facility] Comment on above: Order Comment: CC: C MP CBCD TO DR RODRIGUEZ Performed By: #### L 500.4050, L506.1000, L100.0100, L501.9520 #### [facility] [address] [place], [address] Calcium [Mass/Vol] 9.3 mg/dL Normal 7.6-11.0 [facility] Comment on above: Order Comment: CC: C MP CBCD TO DR RODRIGUEZ Performed By: #### L 500.4050, L506.1000, L100.0100, L501.9520 #### [facility] [address] [place], [address] Chloride [Moles/Vol] 102 mmol/L Normal 98-108 [facility] Comment on above: Order Comment: CC: C MP CBCD TO DR RODRIGUEZ Performed By: #### L 500.4050, L506.1000, L100.0100, L501.9520 #### [facility] [address] [place], [address] CO2 [Moles/Vol] 21.4 mmol/L Normal 21.0-32.0 [facility] Comment on above: Order Comment: CC: C MP CBCD TO DR RODRIGUEZ Performed By: #### L 500.4050, L506.1000, L100.0100, L501.9520 #### [facility] [address] [place], [address] Creatinine [Mass/Vol] 1.08 mg/dL Normal 0.70-1.20 [facility] Comment on above: Order Comment: CC: C MP CBCD TO DR RODRIGUEZ Performed By: #### L 500.4050, L506.1000, L100.0100, L501.9520 #### [facility] [address] [place], [address] ECRCL 44.99 ml/min Low 50-250 [facility] Comment on above: Order Comment: CC: C MP CBCD TO DR RODRIGUEZ Performed By: #### L 500.4050, L506.1000, L100.0100, L501.9520 #### [facility] [address] [place], [address] GAP 13 Normal 5-15 [facility] Comment on above: Order Comment: CC: C MP CBCD TO DR RODRIGUEZ Performed By: #### L 500.4050, L506.1000, L100.0100, L501.9520 #### [facility] [address] [place], [address] GFR/1.73 sq M.predicted among non-blacks MDRD (S/P/Bld) [Vol rate/Area] 52 mL/min/{1.73_m2} Low >60 [facility] Comment on above: Order Comment: CC: C MP CBCD TO DR RODRIGUEZ Result Comment: mL/m in/1.73m2 CKD-EPI Creatinine Equation (2020) Performed By: #### L 500.4050, L506.1000, L100.0100, L501.9520 #### [facility] [address] [place], [address] Globulin (S) [Mass/Vol] 2.9 g/dL Normal 2.2-4.2 [facility] Comment on above: Order Comment: CC: C MP CBCD TO DR RODRIGUEZ Performed By: #### L 500.4050, L506.1000, L100.0100, L501.9520 #### [facility] [address] [place], [address] Glucose [Mass/Vol] 129 mg/dL High 70-99 [facility] Comment on above: Order Comment: CC: C MP CBCD TO DR RODRIGUEZ Performed By: #### L 500.4050, L506.1000, L100.0100, L501.9520 #### [facility] [address] [place], [address] Potassium [Moles/Vol] 4.1 mmol/L Normal 3.3-5.1 [facility] Comment on above: Order Comment: CC: C MP CBCD TO DR RODRIGUEZ Performed By: #### L 500.4050, L506.1000, L100.0100, L501.9520 #### [facility] [address] [place], [address] Sodium [Moles/Vol] 136 mmol/L Normal 133-145 [facility] Comment on above: Order Comment: CC: C MP CBCD TO DR RODRIGUEZ Performed By: #### L 500.4050, L506.1000, L100.0100, L501.9520 #### [facility] [address] [place], [address] T PROT 6.9 g/dL Normal 5.9-8.4 [facility] Comment on above: Order Comment: CC: C MP CBCD TO DR RODRIGUEZ Performed By: #### L 500.4050, L506.1000, L100.0100, L501.9520 #### [facility] [address] [place], [address] Urea nitrogen [Mass/Vol] 15 mg/dL Normal 4-19 [facility] Comment on above: Order Comment: CC: C MP CBCD TO DR RODRIGUEZ Performed By: #### L 500.4050, L506.1000, L100.0100, L501.9520 #### [facility] [address] [place], [address] Eosinophil percentageOrdered By: Carolyn Ruvalcaba on 10-11-2024 Eosinophils/100 WBC (Bld) 1.1 % 0-5 [facility] Erythrocyte distribution wid th ratioOrdered By: [facility] on 10-11-2024 Erythrocyte distribution width (RBC) [Ratio] 16.2 % High 11.6-14.6 [facility] Erythrocyte distribution wid th standard deviationOrdered By: Carolynmilka Ruvalcaba on 10-11-2024 Erythrocyte distribution width (RBC) [Ratio] 65.8 fl High 35.1-43.9 [facility] Glomerular filtration rate ( GFR) estimation/1.73 sq m using serum, plasma, or whole bOrdered By: Carolyn Ruvalcaba on 10-11-2024 GFR/1.73 sq M.predicted among non-blacks MDRD (S/P/Bld) [Vol rate/Area] 52 mL/min/{1.73_m2} Low >60 [facility] Comment on above: mL/min/1.73m2 CKD-EP I Creatinine Equation (2020) Hematocrit Auto (Bld) [Volum e fraction]Ordered By: Carolyn Ruvalcaab on 10-11-2024 Hematocrit (Bld) [Volume fraction] 36.1 % Low 37-47 [facility] Hemoglobin measurementOrdere d By: Carolyn Ruvalcaba on 10-11-2024 Hemoglobin (Bld) [Mass/Vol] 12.1 g/dL 12.0-15.0 [facility] Immature granulocytes/100 WB C Auto (Bld)Ordered By: Carolyn Ruvalcaba on 10-11-2024 Immature granulocytes/100 WBC (Bld) 0.500 % 0.0-0.9 [facility] Comment on above: IG% - Immature Granu locytes (promyelocytes, myelocytes and metamyelocytes) > 1% indicates that a LEFT SHIFT is Present. Laboratory - Chemistry and C hemistry - challengeOrdered By: Carolyn Ruvalcaba on 10-11-2024 AST [Catalytic activity/Vol] 22 U/L <32 [facility] - Hematology and Cell countsOrdered By: Carolyn Ruvalcaba on 10-11-2024 Anisocytosis Ql (Bld) 1+ [facility] MCV (mean corpuscular volume ) determinationOrdered By: Carolyn Ruvalcaba on 10-11-2024 MCV (RBC) [Entitic vol] 110.7 fL High 81-99 [facility] MRSA screenOrdered By: Az Rodriguez on 10-11-2024 MRSA DNA JANY+probe Ql (Unsp spec) [facility] Mean corpuscular hemoglobin (MCH) determinationOrdered By: Craolyn Ruvalcaba on 10-11-2024 MCH (RBC) [Entitic mass] 37.1 pg High 27.0-32.0 [facility] Mean corpuscular hemoglobin concentration (MCHC) determinationOrdered By: Carolyn Ruvalcaba on 10-11-2024 MCHC (RBC) [Mass/Vol] 33.5 g/dL 32-36 [facility] Mean platelet volume determi nationOrdered By: Carolyn Ruvalcaba on 10-11-2024 Platelet mean volume (Bld) [Entitic vol] 10.3 fL 6.2-12.0 [facility] Monocyte percentageOrdered B y: Carolyn Ruvalcaba on 10-11-2024 Monocytes/100 WBC (Bld) 10.3 % High 0-10 [facility] Neutrophil percentageOrdered By: Carolyn Ruvalcaba on 10-11-2024 Neutrophils/100 WBC (Bld) 57.3 % 47-70 [facility] Nucleated red blood cell per centageOrdered By: Carolyn Ruvalcaba on 10-11-2024 Nucleated RBC/100 WBC (Bld) [Ratio] 0 % 0-5 [facility] Oncology Visit Reporton 09-20 Oncology Visit Report [facility] [address] [place] [address] OFFICE VISIT Date of Service: 10/11/24 1453 MR#: [id number] Acct: [id number] Name: BERNICE JUAN Rep #: [id number] : 1945 From: Carolyn EcholsC Age/Sex: 79/F Location: [facility] [place] Status: Signed HPI Subjective Date of Service [...] episodes of overt bleeding, + bruises easily. [facility] Medical History (Updated 10/04/24 @ 13:55 by [...] never substance use type: does not use justice/adventist: Worship seatbelt use: always do you feel safe [...] and palat (more content not included)... Normal [facility] Platelet countOrdered By: Ty ra Ruvalcaba on 10-11-2024 Platelets (Bld) [#/Vol] 244 10*3/uL 150-450 [facility] Platelet estimateOrdered By: Carolyn Ruvalcaba on 10-11-2024 Platelets LM Ql (Bld) ADEQUATE ADEQ [facility] Potassium measurement (mass/ volume)Ordered By: Carolyn Ruvalcaba on 10-11-2024 Potassium (Unsp spec) [Mass/Vol] 4.1 mmol/L 3.3-5.1 [facility] RBC Auto (Bld) [#/Vol]Ordere d By: Carolyn Ruvalcaba on 10-11-2024 RBC (Bld) [#/Vol] 3.26 10*6/uL Low 4.2-5.4 [facility] Serum creatinine measurement (mass/volume)Ordered By: Carolyn Ruvalcaba on 10-11-2024 Creatinine [Mass/Vol] 1.08 mg/dL 0.70-1.20 [facility] Serum globulin measurementOr dered By: Carolyn Ruvalcaba on 10-11-2024 Globulin (S) [Mass/Vol] 2.9 g/dL 2.2-4.2 [facility] Serum glucose measurement (m ass/volume)Ordered By: Carolyn Ruvalcaba on 10-11-2024 Glucose [Mass/Vol] 129 mg/dL High 70-99 [facility] Serum or plasma alanine bey otransferase (ALT) measurementOrdered By: Carolyn Ruvalcaba on 10-11-2024 ALT [Catalytic activity/Vol] 14 U/L <35 [facility] Serum or plasma albumin niels urement (mass/volume)Ordered By: Carolyn Ruvalcaba on 10-11-2024 Albumin [Mass/Vol] 4.0 g/dL 3.4-4.8 [facility] Serum or plasma albumin/glob ulin mass ratioOrdered By: [facility] on 10-11-2024 Albumin/Globulin [Mass ratio] 1.4 {ratio} 0.9-2.4 [facility] Serum or plasma alkaline victor hugo sphatase measurementOrdered By: Carolyn Ruvalcaba on 10-11-2024 ALP [Catalytic activity/Vol] 82 U/L 35-104 [facility] Serum or plasma calcium niels urement (mass/volume)Ordered By: Carolyn Ruvalcaba on 10-11-2024 Calcium [Mass/Vol] 9.3 mg/dL 7.6-11.0 [facility] Serum or plasma urea nitroge n measurement (mass/volume)Ordered By: [facility] on 10-11-2024 Urea nitrogen [Mass/Vol] 15 mg/dL 4-19 [facility] Sodium levelOrdered By: [facility] on 10-11-2024 Sodium [Moles/Vol] 136 mmol/L 133-145 [facility] Total proteinOrdered By: Nayan Ruvalcaba on 10-11-2024 Protein [Mass/Vol] 6.9 g/dL 5.9-8.4 [facility] White blood cell (WBC) count Ordered By: [facility] on 10-11-2024 WBC (Bld) [#/Vol] 3.7 10*3/uL Low 4.4-11.0 [facility] MR/PAT.ANEon 10-05-2024 MR/PAT.ANE [facility] Medical Records Department [address] [place] [address] PAT - Anesthesia 10/05/24 1553 MR#: [id number] Acct: [id number] Name: BERNICE JUAN Rep #: [id number] : 1945 79 From: Avery Rod MD PCP: Dr. Dago Emery MD Status:PRE [facility] [place] Race: C [place] [facility] [place] Pre-Assessment Diagnosis/Proposed Procedure Planned Operative Procedure(s): ROBOTIC ASSISTED LEFT TOTAL KNEE ARTHROPLASTY Anesthesia History Anesthesia History - underwriter: Anesthesia History - underwriter Hx Hospitalization No 10/04/24 13:47 Any Problems [...] take am of surgery PONV PONV - underwriter: PONV - underwriter Female Yes 10/04/24 13:47 HX of Motion [...] 09/20/24 14:30 Respiratory Assessment Respiratory Assessment - underwriter: Respiratory Tract Infection Hx - underwriter Hx Respiratory Tract Infection No 10/04/24 13:47 STOP Sleep Apnea STOP Sleep Apnea - underwriter: STOP Sleep Apnea - underwriter Hx Hypertension Yes: CONTROLLED WITH MED 10/04/24 [...] Tobacco Use History Tobacco Use History - underwriter: Tobacco Use History - underwriter Tobacco Use Smoking Status Never smoker 10/04/24 13:47 Hx Tobacco Use No 10/04/24 13:47 Years Smoking Packs Smoked per Day Smoking Cessation Date was within the last 15 years Hx Smoking Cessation Date Hx Smoking Cessation Counseling Hematologic Medial History Hematologic Hx - underwriter: Hematologic 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 Normal [facility] Cardiology Visit Reporton Cardiology Visit Report [facility] [address] [place] [address] OFFICE VISIT Date of Service: 09/20/24 MR#: [id number] Acct: [id number] Name: BERNICE JUAN Rep #: [id number] : 1945 Provider: Dr. Omero betancur MD Age/Sex: 79/F Location: [facility] [place] Status: Signed HPI HPI History of [...] report Intake Visit Reasons: ABN EKG (Rupert) Volunteer Manager Required: No Accompanied by: Self Is patient [...] never substance use type: does not use justice/adventist: Worship seatbelt use: always do you feel safe at home: Yes ROS Const Const: Positive for fatigue and weakness ENT ENT: Negative for dizziness or balance problems Cardio Chest Pain: No Palpitations: No Edema: Right Muscle ach (more content not included)... Normal [facility] Electrocardiogram reportOrde red By: Omero Armas on 08-03-2024 EKG study [facility] Cardiovascular Services [address] [place] [address] 12 Lead EKG 08/01/24 1400 MR#: [id number] Acct: [id number] Name: BERNICE JUAN Rep #:[id number] : 1945 79 From: Omero betancur MD Attending Dr: Dr. Dago Emery MD Status: REG CLI Ordering Dr: Dago Emery MD Date: Location: [facility] Sex: F C Admitted: Test Reason : PREOP Blood Pressure : */* mmHG Vent. Rate : 50 BPM Atrial Rate : 50 BPM P-R Int : 196 ms QRS Dur : 84 ms QT Int : 440 ms P-R-T Axes : 67 73 47 degrees QTcB Int : [address] abnormality, possible digitalis effect Abnormal ECG Confirmed by Omero Armas ([id number]), editor index BONY SANCHEZ ([id number]) on 08/03/2024 10:09:09 AM Referred By: Dago Emery Confirmed By: Omero Armas 08/03/24 1009 Date _ Omero Armas MD CC: Dr. Dago Emery MD ~ Signed [facility] Other Phone: MRSA/SAID NASAL SCREENon MRSA+SAID SCRN Reason for Exam: PRE OP MRSA MRSA Negative S. AUREUS S. aureus Negative Normal [facility] Comment on above: Performed By: #### L 500.4050, L506.1000, L100.0100, L501.9520 #### [facility] [address] [place], [place], [id number] 12 Lead EKGon 08-01-2024 12 Lead EKG [facility] Cardiovascular Services [address] [place] [address] 12 Lead EKG 08/01/24 1400 MR#: [id number] Acct: [id number] Name: BERNICE JUAN Rep #: [id number] : 1945 79 From: Omero Armas MD Attending Dr: Dr. Dago Emery MD Status: REG CLI Ordering Dr: Dago Emery MD Date: 08/01/24 Location: [facility] Sex: F C Admitted: Test Reason : PREOP Blood Pressure : */* mmHG Vent. Rate : 50 BPM Atrial Rate : 50 BPM P-R Int : 196 ms QRS Dur : 84 ms QT Int : 440 ms P-R-T Axes : 67 73 47 degrees QTcB Int : [address] abnormality, possible digitalis effect Abnormal ECG Confirmed by Omero Armas ([id number]), editor index BONY SANCHEZ ([id number]) on 08/03/2024 10:09:09 AM Referred By: Dago Emery Confirmed By: Omero Armas 08/03/24 1009 Date Omero Armas MD CC: Dr. Dago Emery MD Signed Normal [facility] Extremity Lower without Cont raon 08-01-2024 Extremity Lower without Contra [facility] Imaging Services [address] [address] Extremity Lower without Contra MR#: [id number] Acct: [id number] Name: BERNICE JUAN Rep #: [id number] : 1945 F 79 From: Howard Crocker PCP: Dr. Dago Emery MD Status: REG CLI Study: Extremity Lower without Contra Date of Exam: 0 08/01/24 Exam# [id number] Ordering Dr: Geo Rodriguez MD PROCEDURE: EXTREMITY [...] left tibia without apparent complication. Reading Location: [place] [address] CC: Dr. Geo Rodriguez MD; Dr. Dago Emery MD Heavy Coil Winder: Signed [facility] Medical Records Department [address] [place] [address] PAT - Anesthesia 08/01/24 1627 MR#: [id number] Acct: [id number] Name: BERNICE JUAN Rep #: [id number] : 1945 79 From: Ilya Coelho MD PCP: Dr. Dago Emery MD Status:PRE [facility] [place] Race: C [place] [facility] [place] Pre-Assessment Diagnosis/Proposed Procedure Planned Operative Procedure(s): ROBOTIC ASSISTED LEFT TOTAL KNEE ARTHROPLASTY Anesthesia History Anesthesia History - underwriter: Anesthesia History - underwriter Hx Hospitalization No 07/31/24 11:35 Any Problems [...] take am of surgery PONV PONV - underwriter: PONV - underwriter Female Yes 07/31/24 11:35 HX of Motion [...] 07/10/24 13:45 Respiratory Assessment Respiratory Assessment - underwriter: Respiratory Tract Infection Hx - underwriter Hx Respiratory Tract Infection No 07/31/24 11:35 STOP Sleep Apnea STOP Sleep Apnea - underwriter: STOP Sleep Apnea - underwriter Hx Hypertension Yes: CONTROLLED WITH MED 07/31/24 [...] Tobacco Use History Tobacco Use History - underwriter: Tobacco Use History - underwriter Tobacco Use Smoking Status Never smoker 07/31/24 11:35 Hx Tobacco Use No 07/31/24 11:35 Years Smoking Packs Smoked per Day Smoking Cessation Date was within the last 15 years Hx Smoking Cessation Date Hx Smoking Cessation Counseling Hematologic Medial History Hematologic Hx - underwriter: 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 Normal [facility] Activated partial thrombopla stin time (aPTT) in platelet poor plasma by coagulation aOrdered By: Dago Emery on 07-31-2024 aPTT Coag (PPP) [Time] 26.1 s 24.1-36.2 [facility] Albumin, Serumon 07-31-2024 Albumin [Mass/Vol] 3.9 g/dL Normal 3.4-4.8 [facility] Comment on above: Performed By: #### M 100.651, L501.1800 #### [facility] [address] [place], [address] Bilirubin, totalOrdered By: Dago Emery on 07-31-2024 Bilirubin [Mass/Vol] 0.42 mg/dL 0.00-1.30 [facility] Comprehensive Metabolic Prof ilon 07-31-2024 Albumin [Mass/Vol] 4.0 g/dL Normal 3.4-4.8 [facility] Comment on above: Performed By: #### L 100.0100, L500.4050 #### [facility] [address] [place], [address] Albumin/Globulin [Mass ratio] 1.6 {ratio} Normal 0.9-2.4 [facility] Comment on above: Performed By: #### L 100.0100, L500.4050 #### [facility] [address] [place], [address] ALK PHOS 92 U/L Normal 35-104 [facility] Comment on above: Performed By: #### L 100.0100, L500.4050 #### [facility] [address] [place], [address] ALT [Catalytic activity/Vol] 14 U/L Normal <=34 [facility] Comment on above: Performed By: #### L 100.0100, L500.4050 #### [facility] [address] [place], [address] AST [Catalytic activity/Vol] 22 U/L Normal <=31 [facility] Comment on above: Performed By: #### L 100.0100, L500.4050 #### [facility] [address] [place], [address] Bilirubin [Mass/Vol] 0.42 mg/dL Normal 0.00-1.30 [facility] Comment on above: Performed By: #### L 100.0100, L500.4050 #### [facility] [address] [place], [address] BUN/CRE 19.1 RATIO Normal 10-20 [facility] Comment on above: Performed By: #### L 100.0100, L500.4050 #### [facility] [address] [place], [address] Calcium [Mass/Vol] 9.5 mg/dL Normal 7.6-11.0 [facility] Comment on above: Performed By: #### L 100.0100, L500.4050 #### [facility] [address] [place], [address] Chloride [Moles/Vol] 105 mmol/L Normal 98-108 [facility] Comment on above: Performed By: #### L 100.0100, L500.4050 #### [facility] [address] [place], [address] CO2 [Moles/Vol] 23.0 mmol/L Normal 21.0-32.0 [facility] Comment on above: Performed By: #### L 100.0100, L500.4050 #### [facility] [address] [place], [address] Creatinine [Mass/Vol] 0.97 mg/dL Normal 0.70-1.20 [facility] Comment on above: Performed By: #### L 100.0100, L500.4050 #### [facility] [address] [place], [address] GAP 12 Normal 5-15 [facility] Comment on above: Performed By: #### L 100.0100, L500.4050 #### [facility] [address] [place], [address] GFR/1.73 sq M.predicted among non-blacks MDRD (S/P/Bld) [Vol rate/Area] 59 mL/min/{1.73_m2} Low >60 [facility] Comment on above: Result Comment: mL/m in/1.73m2 CKD-EPI Creatinine Equation (2020) Performed By: #### L 100.0100, L500.4050 #### [facility] [address] [place], [address] Globulin (S) [Mass/Vol] 2.4 g/dL Normal 2.2-4.2 [facility] Comment on above: Performed By: #### L 100.0100, L500.4050 #### [facility] [address] [place], [address] Glucose [Mass/Vol] 127 mg/dL High 70-99 [facility] Comment on above: Performed By: #### L 100.0100, L500.4050 #### [facility] [address] [place], [address] Potassium [Moles/Vol] 4.5 mmol/L Normal 3.3-5.1 [facility] Comment on above: Performed By: #### L 100.0100, L500.4050 #### [facility] [address] [place], [address] Sodium [Moles/Vol] 139 mmol/L Normal 133-145 [facility] Comment on above: Performed By: #### L 100.0100, L500.4050 #### [facility] [address] [place], [address] T PROT 6.4 g/dL Normal 5.9-8.4 [facility] Comment on above: Performed By: #### L 100.0100, L500.4050 #### [facility] [address] [place], [address] Urea nitrogen [Mass/Vol] 19 mg/dL Normal 4-19 [facility] Comment on above: Performed By: #### L 100.0100, L500.4050 #### [facility] [address] [place], [address] International normalized rat io (INR) calculationOrdered By: Dago Emery on 07-31-2024 INR Coag (Bld) [Relative time] 0.9 {INR} [facility] - Chemistry and C hemistry - challengeOrdered By: Dago Emery on 07-31-2024 AST [Catalytic activity/Vol] 22 U/L <32 [facility] MRSA screenOrdered By: Az Rodriguez on 07-31-2024 MRSA DNA JANY+probe Ql (Unsp spec) [facility] Magnesiumon 07-31-2024 Magnesium [Mass/Vol] 2.3 mg/dL High 1.5-2.2 [facility] Comment on above: Performed By: #### L 500.4050, L506.1000, L100.0100, L501.9520 #### [facility] [address] [place], [address] Magnesium measurement (mass/ volume)Ordered By: Jg Pandey on 07-31-2024 Magnesium (Unsp spec) [Mass/Vol] 2.3 mg/dL High 1.5-2.2 [facility] Partial Thromboplast Timeon 07-31-2024 aPTT Coag (Bld) [Time] 26.1 s Normal 24.1-36.2 [facility] Comment on above: Performed By: #### L 100.0100, L500.4050 #### [facility] [address] [place], [address] Prothrombin Time w/INRon INR Coag (PPP) [Relative time] 0.9 {INR} Normal [facility] Comment on above: Performed By: #### L 100.0100, L500.4050 #### [facility] [address] [place], [place], [address] PT Coag (PPP) [Time] 12.6 s Normal 11.7-14.9 [facility] Comment on above: Performed By: #### L 100.0100, L500.4050 #### [facility] [address] [place], [address] Prothrombin timeOrdered By: Dago Emery on 07-31-2024 PT Coag (PPP) [Time] 12.6 s 11.7-14.9 [facility] Serum globulin measurementOr dered By: Dago Emery on 07-31-2024 Globulin (S) [Mass/Vol] 2.4 g/dL 2.2-4.2 [facility] Serum or plasma alanine bey otransferase (ALT) measurementOrdered By: Dago Emery on 07-31-2024 ALT [Catalytic activity/Vol] 14 U/L <35 [facility] Serum or plasma albumin niels urement (mass/volume)Ordered By: Dago Emery on 07-31-2024 Albumin [Mass/Vol] 4.0 g/dL 3.4-4.8 [facility] Serum or plasma albumin/glob ulin mass ratioOrdered By: Dago Emery on 07-31-2024 Albumin/Globulin [Mass ratio] 1.6 {ratio} 0.9-2.4 [facility] Serum or plasma alkaline victor hugo sphatase measurementOrdered By: Dago Emery on 07-31-2024 ALP [Catalytic activity/Vol] 92 U/L 35-104 [facility] TSH DL <= 0.005 mIU/L QnOrde red By: Jg Pandey on 07-31-2024 TSH Qn 1.470 uIU/mL 0.300-4.20 0 [facility] Thyroid Stim Hormone (TSH)on 07-31-2024 TSH 1.470 uIU/mL Normal 0.300-4.20 0 [facility] Comment on above: Performed By: #### L 500.4050, L506.1000, L100.0100, L501.9520 #### [facility] [address] [place], [address] Total proteinOrdered By: Dago Emery on 07-31-2024 Protein [Mass/Vol] 6.4 g/dL 5.9-8.4 [facility] Vitamin D,25 Hydroxyon 07-31 Vitamin D 25-OH 18.9 ng/mL Low 30-100 [facility] Comment on above: Result Comment: [place] min D Status Deficiency: <20 ng/mL (50nmol/L) Insufficiency: 20-30 ng/mL (50-75 nmol/L) Sufficiency: 30-100 ng/mL (75-250 nmol/L) Toxicity: >100 ng/mL (>250 nmol/L) Performed By: #### L 100.0100, L500.4050 #### [facility] [address] [place], [address] Absolute lymphocyte countOrd ered By: Umang Pate on 07-10-2024 Lymphocytes Auto (Unsp spec) [#/Vol] 1.19 10*3/uL 0.83-4.51 [facility] Absolute neutrophil countOrd ered By: Umang Pate on 07-10-2024 Neutrophils (Bld) [#/Vol] 3.7 10*3/uL 2.0-7.7 [facility] Anion gap in Serum or Plasma Ordered By: Umang Pate on 07-10-2024 Anion gap [Moles/Vol] 10 mmol/L 5-15 [facility] Automated lymphocyte count a s percentage of total leukocytesOrdered By: Umang Pate on 07-10-2024 Lymphocytes/100 WBC Auto (Unsp spec) 22.0 % - [facility] BUN/creatinine ratioOrdered By: Umang Pate on 07-10-2024 Urea nitrogen/Creatinine [Mass ratio] 20.2 mg/mg High 10-20 [facility] Basophil percentageOrdered B y: Umang Pate on 07-10-2024 Basophils/100 WBC (Bld) 0.4 % 0-1 [facility] Bilirubin, totalOrdered By: Umang Pate on 07-10-2024 Bilirubin [Mass/Vol] 0.40 mg/dL 0.00-1.30 [facility] CBC W/Diff, Automatedon 06-21 Absolute Lymph 1.19 X10 3/uL Normal 0.83-4.51 [facility] Comment on above: Performed By: #### L 500.4050, L506.1000, L100.0100, L501.9520 #### [facility] [address] [place], [address] Absolute Neut 3.7 X10 3/uL Normal 2.0-7.7 [facility] Comment on above: Performed By: #### L 500.4050, L506.1000, L100.0100, L501.9520 #### [facility] [address] [place], [address] Basophils/100 WBC (Bld) 0.4 % Normal 0-1 [facility] Comment on above: Performed By: #### L 500.4050, L506.1000, L100.0100, L501.9520 #### [facility] [address] [place], [address] Eosinophils/100 WBC (Bld) 1.3 % Normal 0-5 [facility] Comment on above: Performed By: #### L 500.4050, L506.1000, L100.0100, L501.9520 #### [facility] [address] [place], [address] Erythrocyte distribution width (RBC) [Ratio] 14.9 % High 11.6-14.6 [facility] Comment on above: Performed By: #### L 500.4050, L506.1000, L100.0100, L501.9520 #### [facility] [address] [place], [address] Hematocrit (Bld) [Volume fraction] 38.9 % Normal 37-47 [facility] Comment on above: Performed By: #### L 500.4050, L506.1000, L100.0100, L501.9520 #### [facility] [address] [place], [address] Hemoglobin (Bld) [Mass/Vol] 13.0 g/dL Normal 12.0-15.0 [facility] Comment on above: Performed By: #### L 500.4050, L506.1000, L100.0100, L501.9520 #### [facility] [address] [place], [address] IG% 0.400 Normal 0.0-0.9 [facility] Comment on above: Result Comment: IG% - Immature Granulocytes (promyelocytes, myelocytes and metamyelocytes) > 1% indicates that a LEFT SHIFT is Present. Performed By: #### L 500.4050, L506.1000, L100.0100, L501.9520 #### [facility] [address] [place], [address] Lymphocytes/100 WBC (Bld) 22.0 % Normal 19-41 [facility] Comment on above: Performed By: #### L 500.4050, L506.1000, L100.0100, L501.9520 #### [facility] [address] [place], [address] MCH (RBC) [Entitic mass] 36.6 pg High 27.0-32.0 [facility] Comment on above: Performed By: #### L 500.4050, L506.1000, L100.0100, L501.9520 #### [facility] [address] [place], [address] MCHC (RBC) [Mass/Vol] 33.4 g/dL Normal 32-36 [facility] Comment on above: Performed By: #### L 500.4050, L506.1000, L100.0100, L501.9520 #### [facility] [address] [place], [address] MCV (RBC) [Entitic vol] 109.6 fL High 81-99 [facility] Comment on above: Performed By: #### L 500.4050, L506.1000, L100.0100, L501.9520 #### [facility] [address] [place], [address] Monocytes/100 WBC (Bld) 8.5 % Normal 0-10 [facility] Comment on above: Performed By: #### L 500.4050, L506.1000, L100.0100, L501.9520 #### [facility] [address] [place], [address] Neutrophils/100 WBC (Bld) 67.4 % Normal 47-70 [facility] Comment on above: Performed By: #### L 500.4050, L506.1000, L100.0100, L501.9520 #### [facility] [address] [place], [address] Nucleated RBC (Bld) [#/Vol] 0 10*3/uL Normal 0-5 [facility] Comment on above: Performed By: #### L 500.4050, L506.1000, L100.0100, L501.9520 #### [facility] [address] [place], [address] Platelet mean volume (Bld) [Entitic vol] 10.9 fL Normal 6.2-12.0 [facility] Comment on above: Performed By: #### L 500.4050, L506.1000, L100.0100, L501.9520 #### [facility] [address] [place], [address] Platelets (Bld) [#/Vol] 252 10*3/uL Normal 150-450 [facility] Comment on above: Performed By: #### L 500.4050, L506.1000, L100.0100, L501.9520 #### [facility] [address] [place], [address] RBC (Bld) [#/Vol] 3.55 10*6/uL Low 4.2-5.4 [facility] Comment on above: Performed By: #### L 500.4050, L506.1000, L100.0100, L501.9520 #### [facility] [address] [place], [address] RDW SD 60.0 fl High 35.1-43.9 [facility] Comment on above: Performed By: #### L 500.4050, L506.1000, L100.0100, L501.9520 #### [facility] [address] [place], [address] WBC (Bld) [#/Vol] 5.4 10*3/uL Normal 4.4-11.0 [facility] Comment on above: Performed By: #### L 500.4050, L506.1000, L100.0100, L501.9520 #### [facility] [address] [place], [address] Carbon dioxide, total [Moles /volume] in Central venous bloodOrdered By: Umang Pate on 07-10-2024 CO2 [Moles/Vol] 23.6 mmol/L 21.0-32.0 [facility] Chloride assayOrdered By: Lara Pate on 07-10-2024 Chloride [Moles/Vol] 105 mmol/L 98-108 [facility] Comprehensive Metabolic Prof ilon 07-10-2024 Albumin [Mass/Vol] 4.0 g/dL Normal 3.4-4.8 [facility] Comment on above: Performed By: #### L 500.4050, L506.1000, L100.0100, L501.9520 #### [facility] [address] [place], [address] Albumin/Globulin [Mass ratio] 1.4 {ratio} Normal 0.9-2.4 [facility] Comment on above: Performed By: #### L 500.4050, L506.1000, L100.0100, L501.9520 #### [facility] [address] [place], [id number] ALK PHOS 90 U/L Normal 35-104 [facility] Comment on above: Performed By: #### L 500.4050, L506.1000, L100.0100, L501.9520 #### [facility] [address] [place], [id number] ALT [Catalytic activity/Vol] 14 U/L Normal <=34 [facility] Comment on above: Performed By: #### L 500.4050, L506.1000, L100.0100, L501.9520 #### [facility] [address] [place], [address] AST [Catalytic activity/Vol] 22 U/L Normal <=31 [facility] Comment on above: Performed By: #### L 500.4050, L506.1000, L100.0100, L501.9520 #### [facility] [address] [place], [address] Bilirubin [Mass/Vol] 0.40 mg/dL Normal 0.00-1.30 [facility] [place] Comment on above: Performed By: #### L 500.4050, L506.1000, L100.0100, L501.9520 #### [facility] [address] [place], [address] BUN/CRE 20.2 RATIO High 10-20 [facility] Comment on above: Performed By: #### L 500.4050, L506.1000, L100.0100, L501.9520 #### [facility] [address] [place], [address] Calcium [Mass/Vol] 9.3 mg/dL Normal 7.6-11.0 [facility] Comment on above: Performed By: #### L 500.4050, L506.1000, L100.0100, L501.9520 #### [facility] [address] [place], [address] Chloride [Moles/Vol] 105 mmol/L Normal 98-108 [facility] [place] Comment on above: Performed By: #### L 500.4050, L506.1000, L100.0100, L501.9520 #### [facility] [address] [place], [address] CO2 [Moles/Vol] 23.6 mmol/L Normal 21.0-32.0 [facility] Comment on above: Performed By: #### L 500.4050, L506.1000, L100.0100, L501.9520 #### [facility] [address] [place], [address] Creatinine [Mass/Vol] 0.97 mg/dL Normal 0.70-1.20 [facility] Comment on above: Performed By: #### L 500.4050, L506.1000, L100.0100, L501.9520 #### [facility] [address] [place], [address] ECRCL 50.94 ml/min Normal 50-250 [facility] Comment on above: Performed By: #### L 500.4050, L506.1000, L100.0100, L501.9520 #### [facility] [address] [place], [address] GAP 10 Normal 5-15 [facility] Comment on above: Performed By: #### L 500.4050, L506.1000, L100.0100, L501.9520 #### [facility] [address] [place], [address] GFR/1.73 sq M.predicted among non-blacks MDRD (S/P/Bld) [Vol rate/Area] 59 mL/min/{1.73_m2} Low >60 [facility] Comment on above: Result Comment: mL/m in/1.73m2 CKD-EPI Creatinine Equation (2020) Performed By: #### L 500.4050, L506.1000, L100.0100, L501.9520 #### [facility] [address] [place], [address] Globulin (S) [Mass/Vol] 2.9 g/dL Normal 2.2-4.2 [facility] Comment on above: Performed By: #### L 500.4050, L506.1000, L100.0100, L501.9520 #### [facility] [address] [place], [address] Glucose [Mass/Vol] 112 mg/dL High 70-99 [facility] Comment on above: Performed By: #### L 500.4050, L506.1000, L100.0100, L501.9520 #### [facility] [address] [place], [address] Potassium [Moles/Vol] 4.0 mmol/L Normal 3.3-5.1 [facility] Comment on above: Performed By: #### L 500.4050, L506.1000, L100.0100, L501.9520 #### [facility] [address] [place], [id number] Sodium [Moles/Vol] 139 mmol/L Normal 133-145 [facility] Comment on above: Performed By: #### L 500.4050, L506.1000, L100.0100, L501.9520 #### [facility] [address] [place], [address] T PROT 6.9 g/dL Normal 5.9-8.4 [facility] Comment on above: Performed By: #### L 500.4050, L506.1000, L100.0100, L501.9520 #### [facility] [address] [place], [address] Urea nitrogen [Mass/Vol] 20 mg/dL High 4-19 [facility] Comment on above: Performed By: #### L 500.4050, L506.1000, L100.0100, L501.9520 #### [facility] [address] [place], [address] Eosinophil percentageOrdered By: Umang Pate on 07-10-2024 Eosinophils/100 WBC (Bld) 1.3 % 0-5 [facility] Erythrocyte distribution wid th ratioOrdered By: [facility] on 07-10-2024 Erythrocyte distribution width (RBC) [Ratio] 14.9 % High 11.6-14.6 [facility] Erythrocyte distribution wid th standard deviationOrdered By: Umang Pate on 07-10-2024 Erythrocyte distribution width (RBC) [Ratio] 60.0 fl High 35.1-43.9 [facility] Glomerular filtration rate ( GFR) estimation/1.73 sq m using serum, plasma, or whole bOrdered By: Umang Pate on 07-10-2024 GFR/1.73 sq M.predicted among non-blacks MDRD (S/P/Bld) [Vol rate/Area] 59 mL/min/{1.73_m2} Low >60 [facility] Comment on above: mL/min/1.73m2 CKD-EP I Creatinine Equation (2020) Hematocrit Auto (Bld) [Volum e fraction]Ordered By: Umang Pate on 07-10-2024 Hematocrit (Bld) [Volume fraction] 38.9 % 37-47 [facility] Hemoglobin measurementOrdere d By: Umang Pate on 07-10-2024 Hemoglobin (Bld) [Mass/Vol] 13.0 g/dL 12.0-15.0 [facility] Immature granulocytes/100 WB C Auto (Bld)Ordered By: Umang Pate on 07-10-2024 Immature granulocytes/100 WBC (Bld) 0.400 % 0.0-0.9 [facility] Comment on above: IG% - Immature Granu locytes (promyelocytes, myelocytes and metamyelocytes) > 1% indicates that a LEFT SHIFT is Present. Laboratory - Chemistry and C hemistry - challengeOrdered By: Umang Pate on 07-10-2024 AST [Catalytic activity/Vol] 22 U/L <32 [facility] MCV (mean corpuscular volume ) determinationOrdered By: [facility] on 07-10-2024 MCV (RBC) [Entitic vol] 109.6 fL High 81-99 [facility] Mean corpuscular hemoglobin (MCH) determinationOrdered By: [facility] on 07-10-2024 MCH (RBC) [Entitic mass] 36.6 pg High 27.0-32.0 [facility] Mean corpuscular hemoglobin concentration (MCHC) determinationOrdered By: Umang Pate on 07-10-2024 MCHC (RBC) [Mass/Vol] 33.4 g/dL 32-36 [facility] Mean platelet volume determi nationOrdered By: Umang Pate on 07-10-2024 Platelet mean volume (Bld) [Entitic vol] 10.9 fL 6.2-12.0 [facility] Monocyte percentageOrdered B y: Umang Pate on 07-10-2024 Monocytes/100 WBC (Bld) 8.5 % 0-10 [facility] Neutrophil percentageOrdered By: [facility] on 07-10-2024 Neutrophils/100 WBC (Bld) 67.4 % 47-70 [facility] Nucleated red blood cell per centageOrdered By: [facility] on 07-10-2024 Nucleated RBC/100 WBC (Bld) [Ratio] 0 % 0-5 [facility] Oncology Visit Reporton 06-21 Oncology Visit Report [facility] [place] [address] OFFICE VISIT Date of Service: 07/10/24 1322 MR#: [id number] Acct: [id number] Name: BERNICE JUAN Rep #: [id number] : 1945 From: Carolyn Ruvalcaba NP [employer] -C Age/Sex: 78/F Location: [facility] [place] Status: Signed HPI Subjective Date of Service [...] be pursuing left knee replacement in August. [facility] Medical History Wears glasses Post-menopausal Depression Anxiety [...] never substance use type: does not use justice/adventist: Worship seatbelt use: always do you feel safe [...] Bilirubin 0. (more content not included)... Normal [facility] Platelet countOrdered By: Lara Pate on 07-10-2024 Platelets (Bld) [#/Vol] 252 10*3/uL 150-450 [facility] Potassium measurement (mass/ volume)Ordered By: Umang Pate on 07-10-2024 Potassium (Unsp spec) [Mass/Vol] 4.0 mmol/L 3.3-5.1 [facility] RBC Auto (Bld) [#/Vol]Ordere d By: Umang Pate on 07-10-2024 RBC (Bld) [#/Vol] 3.55 10*6/uL Low 4.2-5.4 [facility] Serum creatinine measurement (mass/volume)Ordered By: Umang Pate on 07-10-2024 Creatinine [Mass/Vol] 0.97 mg/dL 0.70-1.20 [facility] Serum globulin measurementOr dered By: Umang Pate on 07-10-2024 Globulin (S) [Mass/Vol] 2.9 g/dL 2.2-4.2 [facility] Serum glucose measurement (m ass/volume)Ordered By: Umang Pate on 07-10-2024 Glucose [Mass/Vol] 112 mg/dL High 70-99 [facility] Serum or plasma alanine bey otransferase (ALT) measurementOrdered By: Umang Pate on 07-10-2024 ALT [Catalytic activity/Vol] 14 U/L <35 [facility] Serum or plasma albumin niels urement (mass/volume)Ordered By: Umang Pate on 07-10-2024 Albumin [Mass/Vol] 4.0 g/dL 3.4-4.8 [facility] Serum or plasma albumin/glob ulin mass ratioOrdered By: Umang Pate on 07-10-2024 Albumin/Globulin [Mass ratio] 1.4 {ratio} 0.9-2.4 [facility] Serum or plasma alkaline victor hugo sphatase measurementOrdered By: Umang Pate on 07-10-2024 ALP [Catalytic activity/Vol] 90 U/L 35-104 [facility] Serum or plasma calcium niels urement (mass/volume)Ordered By: Umang Pate on 07-10-2024 Calcium [Mass/Vol] 9.3 mg/dL 7.6-11.0 [facility] Serum or plasma urea nitroge n measurement (mass/volume)Ordered By: Umang Pate on 07-10-2024 Urea nitrogen [Mass/Vol] 20 mg/dL High 4-19 [facility] Sodium levelOrdered By: Aram Pate on 07-10-2024 Sodium [Moles/Vol] 139 mmol/L 133-145 [facility] Total proteinOrdered By: Seng Pate on 07-10-2024 Protein [Mass/Vol] 6.9 g/dL 5.9-8.4 [facility] White blood cell (WBC) count Ordered By: Umang Pate on 07-10-2024 WBC (Bld) [#/Vol] 5.4 10*3/uL 4.4-11.0 [facility] CBC W/Diff, Automatedon 12-0 Absolute Lymph 1.45 X10 3/uL Normal 0.83-4.51 [facility] Comment on above: Performed By: #### L 500.4050, L506.1000, L100.0100, L501.9520 #### [facility] [address] [place], [address] Absolute Neut 5.9 X10 3/uL Normal 2.0-7.7 [facility] Comment on above: Performed By: #### L 500.4050, L506.1000, L100.0100, L501.9520 #### [facility] [address] [place], [address] Basophils/100 WBC (Bld) 0.1 % Normal 0-1 [facility] Comment on above: Performed By: #### L 500.4050, L506.1000, L100.0100, L501.9520 #### [facility] [address] [place], [address] Eosinophils/100 WBC (Bld) 0.9 % Normal 0-5 [facility] Comment on above: Performed By: #### L 500.4050, L506.1000, L100.0100, L501.9520 #### [facility] [address] [place], [address] Erythrocyte distribution width (RBC) [Ratio] 14.6 % Normal 11.6-14.6 [facility] Comment on above: Performed By: #### L 500.4050, L506.1000, L100.0100, L501.9520 #### [facility] [address] [place], [address] Hematocrit (Bld) [Volume fraction] 40.3 % Normal 37-47 [facility] Comment on above: Performed By: #### L 500.4050, L506.1000, L100.0100, L501.9520 #### [facility] [address] [place], [address] Hemoglobin (Bld) [Mass/Vol] 13.3 g/dL Normal 12.0-15.0 [facility] Comment on above: Performed By: #### L 500.4050, L506.1000, L100.0100, L501.9520 #### [facility] [address] [place], [address] IG% 0.500 Normal 0.0-0.9 [facility] Comment on above: Result Comment: IG% - Immature Granulocytes (promyelocytes, myelocytes and metamyelocytes) > 1% indicates that a LEFT SHIFT is Present. Performed By: #### L 500.4050, L506.1000, L100.0100, L501.9520 #### [facility] [address] [place], [address] Lymphocytes/100 WBC (Bld) 17.7 % Low 19-41 [facility] Comment on above: Performed By: #### L 500.4050, L506.1000, L100.0100, L501.9520 #### [facility] [address] [place], [address] MCH (RBC) [Entitic mass] 36.2 pg High 27.0-32.0 [facility] Comment on above: Performed By: #### L 500.4050, L506.1000, L100.0100, L501.9520 #### [facility] [address] [place], [address] MCHC (RBC) [Mass/Vol] 33.0 g/dL Normal 32-36 [facility] Comment on above: Performed By: #### L 500.4050, L506.1000, L100.0100, L501.9520 #### [facility] [address] [place], [address] MCV (RBC) [Entitic vol] 109.8 fL High 81-99 [facility] Comment on above: Performed By: #### L 500.4050, L506.1000, L100.0100, L501.9520 #### [facility] [address] [place], [address] Monocytes/100 WBC (Bld) 8.1 % Normal 0-10 [facility] Comment on above: Performed By: #### L 500.4050, L506.1000, L100.0100, L501.9520 #### [facility] [address] [place], [address] Neutrophils/100 WBC (Bld) 72.7 % High 47-70 [facility] Comment on above: Performed By: #### L 500.4050, L506.1000, L100.0100, L501.9520 #### [facility] [address] [place], [address] Nucleated RBC (Bld) [#/Vol] 0 10*3/uL Normal 0-5 [facility] Comment on above: Performed By: #### L 500.4050, L506.1000, L100.0100, L501.9520 #### [facility] [address] [place], [address] Platelet mean volume (Bld) [Entitic vol] 10.6 fL Normal 6.2-12.0 [facility] Comment on above: Performed By: #### L 500.4050, L506.1000, L100.0100, L501.9520 #### [facility] [address] [place], [address] Platelets (Bld) [#/Vol] 300 10*3/uL Normal 150-450 [facility] Comment on above: Performed By: #### L 500.4050, L506.1000, L100.0100, L501.9520 #### [facility] [address] [place], [address] RBC (Bld) [#/Vol] 3.67 10*6/uL Low 4.2-5.4 [facility] Comment on above: Performed By: #### L 500.4050, L506.1000, L100.0100, L501.9520 #### [facility] [address] [place], [id number] RDW SD 58.3 fl High 35.1-43.9 [facility] Comment on above: Performed By: #### L 500.4050, L506.1000, L100.0100, L501.9520 #### [facility] [address] [place], [id number] WBC (Bld) [#/Vol] 8.2 10*3/uL Normal 4.4-11.0 [facility] Comment on above: Performed By: #### L 500.4050, L506.1000, L100.0100, L501.9520 #### [facility] [address] [place], [address] Comprehensive Metabolic [facility] ilon 02-22-2024 Albumin [Mass/Vol] 3.4 g/dL Normal 3.2-5.0 [facility] Comment on above: Performed By: #### L 500.4050, L506.1000, L100.0100, L501.9520 #### [facility] [address] [place], [address] Albumin/Globulin [Mass ratio] 1.0 {ratio} Normal 0.9-2.4 [facility] Comment on above: Performed By: #### L 500.4050, L506.1000, L100.0100, L501.9520 #### [facility] [address] [place], [address] ALK P 85 U/L Normal 45-117 [facility] Comment on above: Performed By: #### L 500.4050, L506.1000, L100.0100, L501.9520 #### [facility] [address] [place], [address] ALT [Catalytic activity/Vol] 29 U/L Normal 13-56 [facility] Comment on above: Performed By: #### L 500.4050, L506.1000, L100.0100, L501.9520 #### [facility] [address] [place], [address] AST [Catalytic activity/Vol] 25 U/L Normal 15-37 [facility] Comment on above: Result Comment: Mode rate Hemolysis, Result may be falsely increased. Performed By: #### L 500.4050, L506.1000, L100.0100, L501.9520 #### [facility] [address] [place], [address] Bilirubin [Mass/Vol] 0.70 mg/dL Normal 0.20-1.00 [facility] [place] Comment on above: Result Comment: For patients on eltrombopag therapy, use of Dimension [place] TBIL is not recommended. Performed By: #### L 500.4050, L506.1000, L100.0100, L501.9520 #### [facility] [address] [place], [address] BUN/CRE 22.5 RATIO High 10-20 [facility] Comment on above: Performed By: #### L 500.4050, L506.1000, L100.0100, L501.9520 #### [facility] [address] [place], [address] CA,Total 8.9 mg/dL Normal 8.5-10.1 [facility] Comment on above: Performed By: #### L 500.4050, L506.1000, L100.0100, L501.9520 #### [facility] [address] [place], [address] Chloride [Moles/Vol] 109 mmol/L High 98-107 [facility] Comment on above: Performed By: #### L 500.4050, L506.1000, L100.0100, L501.9520 #### [facility] [address] [place], [address] CO2 [Moles/Vol] 27.0 mmol/L Normal 21.0-32.0 [facility] Comment on above: Performed By: #### L 500.4050, L506.1000, L100.0100, L501.9520 #### [facility] [address] [place], [address] Creatinine [Mass/Vol] 0.94 mg/dL Normal 0.55-1.02 [facility] Comment on above: Result Comment: The validity of the calculated GFR GFRAA in patients over 70 years has not been determined. Clinical correlation is essential. Performed By: #### L 500.4050, L506.1000, L100.0100, L501.9520 #### [facility] [address] [place], [address] ECRCL 52.57 ml/min Normal [facility] Comment on above: Performed By: #### L 500.4050, L506.1000, L100.0100, L501.9520 #### [facility] [address] [place], [address] EST GFR - AA 74 mL/min Normal >60 [facility] Comment on above: Result Comment: Afri can Swiss GFR Calc Performed By: #### L 500.4050, L506.1000, L100.0100, L501.9520 #### [facility] [address] [place], [address] GAP 4 Low 5-15 [facility] Comment on above: Performed By: #### L 500.4050, L506.1000, L100.0100, L501.9520 #### [facility] [address] [place], [address] GFR/1.73 sq M.predicted among non-blacks MDRD (S/P/Bld) [Vol rate/Area] 61 mL/min/{1.73_m2} Normal >60 [facility] Comment on above: Result Comment: Non- GFR Calc Performed By: #### L 500.4050, L506.1000, L100.0100, L501.9520 #### [facility] [address] [place], [address] Globulin (S) [Mass/Vol] 3.5 g/dL Normal 2.2-4.2 [facility] Comment on above: Performed By: #### L 500.4050, L506.1000, L100.0100, L501.9520 #### [facility] [address] [place], [address] Glucose [Mass/Vol] 110 mg/dL High 74-106 [facility] Comment on above: Result Comment: Fast ing Glucose result from 100 to 125 mg/dL suggests IMPAIRED HOMEOSTASIS per A.D.A. criteria. Performed By: #### L 500.4050, L506.1000, L100.0100, L501.9520 #### [facility] [address] [place], [address] Potassium [Moles/Vol] 4.2 mmol/L Normal 3.5-5.1 [facility] Comment on above: Result Comment: Mode rate Hemolysis, Result may be falsely increased. Performed By: #### L 500.4050, L506.1000, L100.0100, L501.9520 #### [facility] [address] [place], [address] Sodium [Moles/Vol] 140 mmol/L Normal 136-145 [facility] Comment on above: Performed By: #### L 500.4050, L506.1000, L100.0100, L501.9520 #### [facility] [address] [place], [address] T PROT 6.9 g/dL Normal 6.4-8.2 [facility] Comment on above: Performed By: #### L 500.4050, L506.1000, L100.0100, L501.9520 #### [facility] [address] [place], [address] Urea nitrogen [Mass/Vol] 21 mg/dL High 7-18 [facility] Comment on above: Performed By: #### L 500.4050, L506.1000, L100.0100, L501.9520 #### [facility] [address] [place], [address] Oncology Visit Reporton Oncology Visit Report [facility] [place] [facility] [address] [place] [address] OFFICE VISIT Date of Service: 02/22/24 1408 MR#: [id number] Acct: [id number] Name: BERNICE JUAN Rep #: [id number] : 1945 From: Umang Pate MD Age/Sex: 78/F Location: [facility] [place] Status: Signed HPI Subjective Date of Service [...] positive. Treatment: Hydrea started July 29, 2018 [facility] Medical History Wears glasses Post-menopausal Depression Anxiety [...] never substance use type: does not use justice/adventist: Worship seatbelt use: always do you feel safe [...] PO DA (more content not included)... Normal [facility] CBC W/Diff, Automatedon 01-20 Absolute Lymph 1.16 X10 3/uL Normal 0.83-4.51 [facility] Comment on above: Performed By: #### L 500.4050, L506.1000, L100.0100, L501.9520 #### [facility] [address] [place], [address] Absolute Neut 3.3 X10 3/uL Normal 2.0-7.7 [facility] Comment on above: Performed By: #### L 500.4050, L506.1000, L100.0100, L501.9520 #### [facility] [address] [place], [address] Basophils/100 WBC (Bld) 0.4 % Normal 0-1 [facility] Comment on above: Performed By: #### L 500.4050, L506.1000, L100.0100, L501.9520 #### [facility] [address] [place], [address] Eosinophils/100 WBC (Bld) 1.0 % Normal 0-5 [facility] Comment on above: Performed By: #### L 500.4050, L506.1000, L100.0100, L501.9520 #### [facility] [address] [place], [address] Erythrocyte distribution width (RBC) [Ratio] 14.3 % Normal 11.6-14.6 [facility] Comment on above: Performed By: #### L 500.4050, L506.1000, L100.0100, L501.9520 #### [facility] [address] [place], [address] Hematocrit (Bld) [Volume fraction] 38.3 % Normal 37-47 [facility] Comment on above: Performed By: #### L 500.4050, L506.1000, L100.0100, L501.9520 #### [facility] [address] [place], [address] Hemoglobin (Bld) [Mass/Vol] 12.8 g/dL Normal 12.0-15.0 [facility] Comment on above: Performed By: #### L 500.4050, L506.1000, L100.0100, L501.9520 #### [facility] [address] [place], [address] IG% 0.400 Normal 0.0-0.9 [facility] Comment on above: Result Comment: IG% - Immature Granulocytes (promyelocytes, myelocytes and metamyelocytes) > 1% indicates that a LEFT SHIFT is Present. Performed By: #### L 500.4050, L506.1000, L100.0100, L501.9520 #### [facility] [address] [place], [address] Lymphocytes/100 WBC (Bld) 22.9 % Normal 19-41 [facility] Comment on above: Performed By: #### L 500.4050, L506.1000, L100.0100, L501.9520 #### [facility] [address] [place], [id number] MCH (RBC) [Entitic mass] 37.0 pg High 27.0-32.0 [facility] Comment on above: Performed By: #### L 500.4050, L506.1000, L100.0100, L501.9520 #### [facility] [address] [place], [address] MCHC (RBC) [Mass/Vol] 33.4 g/dL Normal 32-36 [facility] Comment on above: Performed By: #### L 500.4050, L506.1000, L100.0100, L501.9520 #### [facility] [address] [place], [id number] MCV (RBC) [Entitic vol] 110.7 fL High 81-99 [facility] Comment on above: Performed By: #### L 500.4050, L506.1000, L100.0100, L501.9520 #### [facility] [address] [place], [address] Monocytes/100 WBC (Bld) 9.5 % Normal 0-10 [facility] Comment on above: Performed By: #### L 500.4050, L506.1000, L100.0100, L501.9520 #### [facility] [address] [place], [address] Neutrophils/100 WBC (Bld) 65.8 % Normal 47-70 [facility] Comment on above: Performed By: #### L 500.4050, L506.1000, L100.0100, L501.9520 #### [facility] [address] [place], [address] Nucleated RBC (Bld) [#/Vol] 0 10*3/uL Normal 0-5 [facility] Comment on above: Performed By: #### L 500.4050, L506.1000, L100.0100, L501.9520 #### [facility] [address] [place], [id number] Platelet mean volume (Bld) [Entitic vol] 11.0 fL Normal 6.2-12.0 [facility] Comment on above: Performed By: #### L 500.4050, L506.1000, L100.0100, L501.9520 #### [facility] [address] [place], [address] Platelets (Bld) [#/Vol] 292 10*3/uL Normal 150-450 [facility] Comment on above: Performed By: #### L 500.4050, L506.1000, L100.0100, L501.9520 #### [facility] [address] [place], [address] RBC (Bld) [#/Vol] 3.46 10*6/uL Low 4.2-5.4 [facility] Comment on above: Performed By: #### L 500.4050, L506.1000, L100.0100, L501.9520 #### [facility] [address] [place], [address] RDW SD 57.3 fl High 35.1-43.9 [facility] Comment on above: Performed By: #### L 500.4050, L506.1000, L100.0100, L501.9520 #### [facility] [address] [place], [address] WBC (Bld) [#/Vol] 5.1 10*3/uL Normal 4.4-11.0 [facility] Comment on above: Performed By: #### L 500.4050, L506.1000, L100.0100, L501.9520 #### [facility] [address] [place], [address] Comprehensive Metabolic Prof pato 01-31-2024 Albumin [Mass/Vol] 3.5 g/dL Normal 3.2-5.0 [facility] Comment on above: Performed By: #### L 500.4050, L506.1000, L100.0100, L501.9520 #### [facility] [address] [place], [address] Albumin/Globulin [Mass ratio] 1.0 {ratio} Normal 0.9-2.4 [facility] Comment on above: Performed By: #### L 500.4050, L506.1000, L100.0100, L501.9520 #### [facility] [address] [place], [address] ALK P 96 U/L Normal 45-117 [facility] Comment on above: Performed By: #### L 500.4050, L506.1000, L100.0100, L501.9520 #### [facility] [address] [place], [address] ALT [Catalytic activity/Vol] 19 U/L Normal 13-56 [facility] Comment on above: Performed By: #### L 500.4050, L506.1000, L100.0100, L501.9520 #### [facility] [address] [place], [address] AST [Catalytic activity/Vol] 33 U/L Normal 15-37 [facility] Comment on above: Result Comment: Mode rate Hemolysis, Result may be falsely increased. Performed By: #### L 500.4050, L506.1000, L100.0100, L501.9520 #### [facility] [address] [place], [address] Bilirubin [Mass/Vol] 0.50 mg/dL Normal 0.20-1.00 [facility] [place] Comment on above: Result Comment: For patients on eltrombopag therapy, use of Dimension [place] TBIL is not recommended. Performed By: #### L 500.4050, L506.1000, L100.0100, L501.9520 #### [facility] [address] [place], [address] BUN/CRE 23.5 RATIO High 10-20 [facility] Comment on above: Performed By: #### L 500.4050, L506.1000, L100.0100, L501.9520 #### [facility] [address] [place], [address] CA,Total 9.1 mg/dL Normal 8.5-10.1 [facility] Comment on above: Performed By: #### L 500.4050, L506.1000, L100.0100, L501.9520 #### [facility] [address] [place], [address] Chloride [Moles/Vol] 109 mmol/L High 98-107 [facility] [place] Comment on above: Performed By: #### L 500.4050, L506.1000, L100.0100, L501.9520 #### [facility] [address] [place], [address] CO2 [Moles/Vol] 24.0 mmol/L Normal 21.0-32.0 [facility] Comment on above: Performed By: #### L 500.4050, L506.1000, L100.0100, L501.9520 #### [facility] [address] [place], [address] Creatinine [Mass/Vol] 0.94 mg/dL Normal 0.55-1.02 [facility] Comment on above: Result Comment: The validity of the calculated GFR GFRAA in patients over 70 years has not been determined. Clinical correlation is essential. Performed By: #### L 500.4050, L506.1000, L100.0100, L501.9520 #### [facility] [address] [place], [address] EST GFR - AA 74 mL/min Normal >60 [facility] Comment on above: Result Comment: Afri can Swiss GFR Calc Performed By: #### L 500.4050, L506.1000, L100.0100, L501.9520 #### [facility] [address] [place], [id number] GAP 9 Normal 5-15 [facility] Comment on above: Performed By: #### L 500.4050, L506.1000, L100.0100, L501.9520 #### [facility] [address] [place], [address] GFR/1.73 sq M.predicted among non-blacks MDRD (S/P/Bld) [Vol rate/Area] 61 mL/min/{1.73_m2} Normal >60 [facility] Comment on above: Result Comment: Non- GFR Calc Performed By: #### L 500.4050, L506.1000, L100.0100, L501.9520 #### [facility] [address] [place], [address] Globulin (S) [Mass/Vol] 3.6 g/dL Normal 2.2-4.2 [facility] Comment on above: Performed By: #### L 500.4050, L506.1000, L100.0100, L501.9520 #### [facility] [address] [place], [address] Glucose [Mass/Vol] 108 mg/dL High 74-106 [facility] Comment on above: Result Comment: Fast ing Glucose result from 100 to 125 mg/dL suggests IMPAIRED HOMEOSTASIS per A.D.A. criteria. Performed By: #### L 500.4050, L506.1000, L100.0100, L501.9520 #### [facility] [address] [place], [address] Potassium [Moles/Vol] 4.1 mmol/L Normal 3.5-5.1 [facility] Comment on above: Result Comment: Mode rate Hemolysis, Result may be falsely increased. Performed By: #### L 500.4050, L506.1000, L100.0100, L501.9520 #### [facility] [address] [place], [address] Sodium [Moles/Vol] 141 mmol/L Normal 136-145 [facility] Comment on above: Performed By: #### L 500.4050, L506.1000, L100.0100, L501.9520 #### [facility] [address] [place], [address] T PROT 7.1 g/dL Normal 6.4-8.2 [facility] Comment on above: Performed By: #### L 500.4050, L506.1000, L100.0100, L501.9520 #### [facility] [address] [place], [address] Urea nitrogen [Mass/Vol] 22 mg/dL High 7-18 [facility] Comment on above: Performed By: #### L 500.4050, L506.1000, L100.0100, L501.9520 #### [facility] [address] [place], [address] Thyroid Stim Hormone (TSH)on 01-31-2024 TSH 1.630 uIU/mL Normal 0.358-3.74 0 [facility] Comment on above: Performed By: #### L 500.4050, L506.1000, L100.0100, L501.9520 #### [facility] [address] [place], [address] Vitamin D,25 Hydroxyon 01-30 Vitamin D 25-OH 20.8 ng/mL Normal [facility] Comment on above: Result Comment: [place] min D 25(OH) Status Range Deficiency <20 ng/mL (50nmol/L) Insufficiency 20 - 30 ng/mL (50 - 75 nmol/L) Sufficiency 30 - 100 ng/mL (75 - 250 nmol/L) Toxicity >100 ng/mL (>250 nmol/L) Performed By: #### L 500.4050, L506.1000, L100.0100, L501.9520 #### [facility] [address] [place], [id number] CBC W/Diff, Automatedon 08 Anisocytosis Ql (Bld) 1+ Normal [facility] Comment on above: Performed By: #### L 100.0100, L500.4050 #### [facility] [address] [place], [address] Comprehensive Metabolic Prof ilon 11-09-2023 Albumin [Mass/Vol] 3.5 g/dL Normal 3.2-5.0 [facility] Comment on above: Performed By: #### L 100.0100, L500.4050 #### [facility] [address] [place], [id number] Albumin/Globulin [Mass ratio] 0.9 {ratio} Normal 0.9-2.4 [facility] Comment on above: Performed By: #### L 100.0100, L500.4050 #### [facility] [address] [place], [id number] ALK P 98 U/L Normal 45-117 [facility] Comment on above: Performed By: #### L 100.0100, L500.4050 #### [facility] [address] [place], [id number] ALT [Catalytic activity/Vol] 19 U/L Normal 13-56 [facility] Comment on above: Performed By: #### L 100.0100, L500.4050 #### [facility] [address] [place], [id number] AST [Catalytic activity/Vol] 29 U/L Normal 15-37 [facility] Comment on above: Performed By: #### L 100.0100, L500.4050 #### [facility] [address] [place], [id number] Bilirubin [Mass/Vol] 0.50 mg/dL Normal 0.20-1.00 [facility] [place] Comment on above: Result Comment: For patients on eltrombopag therapy, use of Dimension [place] TBIL is not recommended. Performed By: #### L 100.0100, L500.4050 #### [facility] [address] [place], [address] BUN/CRE 18.9 RATIO Normal 10-20 [facility] Comment on above: Performed By: #### L 100.0100, L500.4050 #### [facility] [address] [place], [address] CA,Total 9.2 mg/dL Normal 8.5-10.1 [facility] Comment on above: Performed By: #### L 100.0100, L500.4050 #### [facility] [address] [place], [address] Chloride [Moles/Vol] 108 mmol/L High 98-107 [facility] Comment on above: Performed By: #### L 100.0100, L500.4050 #### [facility] [address] [place], [address] CO2 [Moles/Vol] 25.0 mmol/L Normal 21.0-32.0 [facility] Comment on above: Performed By: #### L 100.0100, L500.4050 #### [facility] [address] [place], [address] Creatinine [Mass/Vol] 1.06 mg/dL High 0.55-1.02 [facility] Comment on above: Result Comment: The validity of the calculated GFR GFRAA in patients over 70 years has not been determined. Clinical correlation is essential. Performed By: #### L 100.0100, L500.4050 #### [facility] [address] [place], [id number] ECRCL 46.37 ml/min Normal [facility] Comment on above: Performed By: #### L 100.0100, L500.4050 #### [facility] [address] [place], [id number] EST GFR - AA 64 mL/min Normal >60 [facility] Comment on above: Result Comment: Afri can Swiss GFR Calc Performed By: #### L 100.0100, L500.4050 #### [facility] [address] [place], [id number] GAP 7 Normal 5-15 [facility] Comment on above: Performed By: #### L 100.0100, L500.4050 #### [facility] [address] [place], [id number] GFR/1.73 sq M.predicted among non-blacks MDRD (S/P/Bld) [Vol rate/Area] 53 mL/min/{1.73_m2} Low >60 [facility] Comment on above: Result Comment: Non- GFR Calc Performed By: #### L 100.0100, L500.4050 #### [facility] [address] [place], [id number] Globulin (S) [Mass/Vol] 3.7 g/dL Normal 2.2-4.2 [facility] Comment on above: Performed By: #### L 100.0100, L500.4050 #### [facility] [address] [place], [id number] Glucose [Mass/Vol] 120 mg/dL High 74-106 [facility] Comment on above: Result Comment: Fast ing Glucose result from 100 to 125 mg/dL suggests IMPAIRED HOMEOSTASIS per A.D.A. criteria. Performed By: #### L 100.0100, L500.4050 #### [facility] [address] [place], [id number] Potassium [Moles/Vol] 3.7 mmol/L Normal 3.5-5.1 [facility] Comment on above: Performed By: #### L 100.0100, L500.4050 #### [facility] [address] [place], [address] Sodium [Moles/Vol] 140 mmol/L Normal 136-145 [facility] Comment on above: Performed By: #### L 100.0100, L500.4050 #### [facility] [address] [place], [address] T PROT 7.2 g/dL Normal 6.4-8.2 [facility] Comment on above: Performed By: #### L 100.0100, L500.4050 #### [facility] [address] [place], [address] Urea nitrogen [Mass/Vol] 20 mg/dL High 7-18 [facility] Comment on above: Performed By: #### L 100.0100, L500.4050 #### [facility] [address] [place], [address] Laboratory - Hematology and Cell countsOrdered By: Umang Pate on 11-09-2023 Anisocytosis Ql (Bld) 1+ [facility] Oncology Visit Reporton 10-21 Oncology Visit Report [facility] [address] [place] [address] OFFICE VISIT Date of Service: 11/09/23 1351 MR#: [id number] Acct: [id number] Name: BERNICE JUAN Rep #: [id number] : 1945 From: Umang Pate MD Age/Sex: 78/F Location: [facility] [place] Status: Signed HPI Subjective Date of Service [...] positive. Treatment: Hydrea started July 29, 2018 [facility] Medical History Wears glasses Post-menopausal Depression Anxiety [...] never substance use type: does not use justice/adventist: Worship seatbelt use: always do you feel safe [...] PO REJI (more content not included)... Normal [facility] Serum or plasma thyroid stim ulating hormone (TSH) measurement (units/volume)Ordered By: Umang Pate on 08-05-2023 TSH Qn 1.06 uIU/mL 0.358-3.74 [facility] Absolute lymphocyte countOrd ered By: Dago Emery on 01-25-2023 Lymphocytes Auto (Unsp spec) [#/Vol] 1.06 10*3/uL 0.83-4.51 [facility] Basophil percentageOrdered B y: Dago Emery on 01-25-2023 Basophils/100 WBC (Bld) 0.2 % 0-1 [facility] Bilirubin [Mass/Vol] 0.40 mg/dL 0.20-1.00 [facility] Comment on above: For patients on eltr ombopag therapy, use of Dimension [place] TBIL is not recommended. Chloride [Moles/Vol] 108 mmol/L 98-107 [facility] Eosinophils/100 WBC (Bld) 1.1 % 0-5 [facility] Glucose [Mass/Vol] 116 mg/dL 74-106 [facility] Comment on above: Fasting Glucose resu lt from 100 to 125 mg/dL suggests IMPAIRED HOMEOSTASIS per A.D.A. criteria. Neutrophils (Bld) [#/Vol] 2.8 10*3/uL 2.0-7.7 [facility] Neutrophils/100 WBC (Bld) 64.3 % 47-70 [facility] Potassium [Moles/Vol] 3.6 mmol/L 3.5-5.1 [facility] Protein [Mass/Vol] 7.1 g/dL 6.4-8.2 [facility] Sodium [Moles/Vol] 141 mmol/L 136-145 [facility] WBC (Bld) [#/Vol] 4.4 10*3/uL 4.4-11.0 [facility] Blood erythrocytes count (nu mber/volume)Ordered By: Dago Emery on 01-25-2023 RBC (Bld) [#/Vol] 3.25 10*6/uL 4.2-5.4 [facility] Blood hemoglobin measurement (mass/volume)Ordered By: Dago Emery on 01-25-2023 Hemoglobin (Bld) [Mass/Vol] 11.8 g/dL 12.0-15.0 [facility] Blood lymphocytes/100 leukoc ytesOrdered By: Dago Emery on 01-25-2023 Lymphocytes/100 WBC (Bld) 24.1 % 19-41 [facility] Blood manual differential co mment interpretation (narrative result)Ordered By: Dago Emery on 01-25-2023 Manual differential comment Jack (Bld) [Interp] SCANNED [facility] Blood monocytes/100 leukocyt esOrdered By: Dago Emery on 01-25-2023 Monocytes/100 WBC (Bld) 9.8 % 0-10 [facility] Blood platelet mean volumeOr dered By: Dago Emery on 01-25-2023 Platelet mean volume (Bld) [Entitic vol] 11.2 fL 6.2-12.0 [facility] Determination of erythrocyte mean corpuscular volume (MCV)Ordered By: Dago Emery on 01-25-2023 MCV (RBC) [Entitic vol] 113.8 fL 81-99 [facility] Hematocrit Auto (Bld) [Volum e fraction]Ordered By: Dago Emery on 01-25-2023 Hematocrit (Bld) [Volume fraction] 37.0 % 37-47 [facility] - Chemistry and C hemistry - challengeOrdered By: [facility] Rupert on 01-25-2023 ALP [Catalytic activity/Vol] 82 U/L 45-117 [facility] ALT [Catalytic activity/Vol] 15 U/L 13-56 [facility] CO2 [Moles/Vol] 26.0 mmol/L 21.0-32.0 [facility] Globulin (S) [Mass/Vol] 3.8 g/dL 2.2-4.2 [facility] Urea nitrogen/Creatinine [Mass ratio] 18.6 mg/mg 10-20 [facility] - Hematology and Cell countsOrdered By: Dago Emery on 01-25-2023 Anisocytosis Ql (Bld) 2+ [facility] Erythrocyte distribution width (RBC) [Entitic vol] 65.5 fL 35.1-43.9 [facility] Erythrocyte distribution width (RBC) [Ratio] 15.7 % 11.6-14.6 [facility] Immature granulocytes/100 WBC (Bld) 0.500 % 0.0-0.9 [facility] Comment on above: IG% - Immature Granu locytes (promyelocytes, myelocytes and metamyelocytes) > 1% indicates that a LEFT SHIFT is Present. MCH (RBC) [Entitic mass] 36.3 pg 27.0-32.0 [facility] Nucleated RBC/100 WBC (Bld) [Ratio] 0 % 0-5 [facility] MCHC Auto (RBC) [Mass/Vol]Or dered By: Dago Emery on 01-25-2023 MCHC (RBC) [Mass/Vol] 31.9 g/dL 32-36 [facility] Macrocytes detectionOrdered By: Dago Emery on 01-25-2023 Macrocytes Ql (Bld) 2+ [facility] No Panel InformationOrdered By: Dago Emery on 01-25-2023 Estimated GFR (MDRD) Amer 67 mL/min >60 [facility] Comment on above: GFR Calc Estimated GFR (MDRD) Non-Af Amer 56 mL/min >60 [facility] Comment on above: Non- GFR Calc Thyroid Stimulating Hormone (TSH) 1.65 uIU/mL 0.358-3.74 [facility] Vitamin D 25-Hydroxy 39.0 ng/mL [facility] Comment on above: Vitamin D 25(OH) Sta tus Range Deficiency <20 ng/mL (50nmol/L) Insufficiency 20 - 30 ng/mL (50 - 75 nmol/L) Sufficiency 30 - 100 ng/mL (75 - 250 nmol/L) Toxicity >100 ng/mL (>250 nmol/L) Platelets bldOrdered By: Dago Emery on 01-25-2023 Platelets (Bld) [#/Vol] 265 10*3/uL 150-450 [facility] Serum or plasma albumin niels urement (mass/volume)Ordered By: Dago Emery on 01-25-2023 Albumin [Mass/Vol] 3.3 g/dL 3.2-5.0 [facility] Serum or plasma albumin/glob ulin mass ratioOrdered By: Dago Emery on 01-25-2023 Albumin/Globulin [Mass ratio] 0.9 {ratio} 0.9-2.4 [facility] Serum or plasma calcium niels urement (mass/volume)Ordered By: Dago Emery on 01-25-2023 Calcium [Mass/Vol] 9.1 mg/dL 8.5-10.1 [facility] Serum or plasma creatinine m easurement (mass/volume)Ordered By: Dago Emery on 01-25-2023 Creatinine [Mass/Vol] 1.02 mg/dL 0.55-1.02 [facility] Comment on above: The validity of the calculated GFR & GFRAA in patients over 70 years has not been determined. Clinical correlation is essential. Serum or plasma urea nitroge n measurement (mass/volume)Ordered By: Dago Emery on 01-25-2023 Urea nitrogen [Mass/Vol] 19 mg/dL 7-18 [facility] Thin prep Papanicolaou smear with manual screeningOrdered By: Dago Emery on 01-25-2023 Thin prep Papanicolaou smear with manual screening 25 U/L 15-37 [facility] Thin prep Papanicolaou smear with manual screening 7 5-15 [facility] Absolute lymphocyte countOrd ered By: Carolyn Ruvalcaba on 11-04-2022 Lymphocytes Auto (Unsp spec) [#/Vol] 1.04 10*3/uL 0.83-4.51 [facility] Basophil percentageOrdered B y: Carolyn Ruvalcaba on 11-04-2022 Basophils/100 WBC (Bld) 0.5 % 0-1 [facility] Bilirubin [Mass/Vol] 0.50 mg/dL 0.20-1.00 [facility] Comment on above: For patients on eltr ombopag therapy, use of Dimension [place] TBIL is not recommended. Chloride [Moles/Vol] 108 mmol/L 98-107 [facility] Eosinophils/100 WBC (Bld) 1.1 % 0-5 [facility] Glucose [Mass/Vol] 127 mg/dL 74-106 [facility] Comment on above: Fasting Glucose resu lt greater than or equal to 126 mg/dL suggests DIABETES MELLITUS per A.D.A. criteria. Neutrophils (Bld) [#/Vol] 4.6 10*3/uL 2.0-7.7 [facility] Neutrophils/100 WBC (Bld) 74.8 % 47-70 [facility] Potassium [Moles/Vol] 3.8 mmol/L 3.5-5.1 [facility] Protein [Mass/Vol] 7.4 g/dL 6.4-8.2 [facility] Sodium [Moles/Vol] 140 mmol/L 136-145 [facility] WBC (Bld) [#/Vol] 6.2 10*3/uL 4.4-11.0 [facility] Blood erythrocytes count (nu mber/volume)Ordered By: Carolyn Ruvalcaba on 11-04-2022 RBC (Bld) [#/Vol] 3.43 10*6/uL 4.2-5.4 [facility] Blood hemoglobin measurement (mass/volume)Ordered By: Carolyn Ruvalcaba on 11-04-2022 Hemoglobin (Bld) [Mass/Vol] 12.0 g/dL 12.0-15.0 [facility] Blood lymphocytes/100 leukoc ytesOrdered By: Carolyn Ruvalcaba on 11-04-2022 Lymphocytes/100 WBC (Bld) 16.8 % 19-41 [facility] Blood monocytes/100 leukocyt esOrdered By: Carolyn Ruvalcaba on 11-04-2022 Monocytes/100 WBC (Bld) 6.5 % 0-10 [facility] Blood platelet mean volumeOr dered By: Carolyn Ruvalcaba on 11-04-2022 Platelet mean volume (Bld) [Entitic vol] 10.0 fL 6.2-12.0 [facility] Determination of erythrocyte mean corpuscular volume (MCV)Ordered By: Carolyn Ruvalcaba on 11-04-2022 MCV (RBC) [Entitic vol] 110.5 fL 81-99 [facility] Hematocrit Auto (Bld) [Volum e fraction]Ordered By: Carolyn Ruvalcaba on 11-04-2022 Hematocrit (Bld) [Volume fraction] 37.9 % 37-47 [facility] - Chemistry and C hemistry - challengeOrdered By: Carolyn Ruvalcaba on 11-04-2022 ALP [Catalytic activity/Vol] 89 U/L 45-117 [facility] ALT [Catalytic activity/Vol] 18 U/L 13-56 [facility] CO2 [Moles/Vol] 25.0 mmol/L 21.0-32.0 [facility] Globulin (S) [Mass/Vol] 4.1 g/dL 2.2-4.2 [facility] Urea nitrogen/Creatinine [Mass ratio] 14.8 mg/mg 10-20 [facility] - Hematology and Cell countsOrdered By: Carolyn Ruvalcaba on 11-04-2022 Erythrocyte distribution width (RBC) [Entitic vol] 62.5 fL 35.1-43.9 [facility] Erythrocyte distribution width (RBC) [Ratio] 15.6 % 11.6-14.6 [facility] Immature granulocytes/100 WBC (Bld) 0.300 % 0.0-0.9 [facility] Comment on above: IG% - Immature Granu locytes (promyelocytes, myelocytes and metamyelocytes) > 1% indicates that a LEFT SHIFT is Present. MCH (RBC) [Entitic mass] 35.0 pg 27.0-32.0 [facility] Nucleated RBC/100 WBC (Bld) [Ratio] 0 % 0-5 [facility] MCHC Auto (RBC) [Mass/Vol]Or dered By: Carolyn Ruvalcaba on 11-04-2022 MCHC (RBC) [Mass/Vol] 31.7 g/dL 32-36 [facility] No Panel InformationOrdered By: Carolyn Ruvalcaba on 11-04-2022 Estimated Creatinine Clearance Calc 41.46 ml/min [facility] Estimated GFR (MDRD) Amer 73 mL/min >60 [facility] Comment on above: GFR Calc Estimated GFR (MDRD) Non-Af Amer 60 mL/min >60 [facility] Comment on above: Non- GFR Calc Platelets bldOrdered By: Nayan Ruvalcaba on 11-04-2022 Platelets (Bld) [#/Vol] 298 10*3/uL 150-450 [facility] Serum or plasma albumin niels urement (mass/volume)Ordered By: Carolyn Ruvalcaba on 11-04-2022 Albumin [Mass/Vol] 3.3 g/dL 3.2-5.0 [facility] Serum or plasma albumin/glob ulin mass ratioOrdered By: Carolyn Ruvalcaba on 11-04-2022 Albumin/Globulin [Mass ratio] 0.8 {ratio} 0.9-2.4 [facility] Serum or plasma calcium niels urement (mass/volume)Ordered By: Carolyn Ruvalcaba on 11-04-2022 Calcium [Mass/Vol] 9.2 mg/dL 8.5-10.1 [facility] Serum or plasma creatinine m easurement (mass/volume)Ordered By: Carolyn Ruvalcaba on 11-04-2022 Creatinine [Mass/Vol] 0.95 mg/dL 0.55-1.02 [facility] Comment on above: The validity of the calculated GFR & GFRAA in patients over 70 years has not been determined. Clinical correlation is essential. Serum or plasma urea nitroge n measurement (mass/volume)Ordered By: Carolyn Ruvalcaba on 11-04-2022 Urea nitrogen [Mass/Vol] 14 mg/dL 7-18 [facility] Thin prep Papanicolaou smear with manual screeningOrdered By: Carolynmilka Ruvalcaba on 11-04-2022 Thin prep Papanicolaou smear with manual screening 19 U/L 15-37 [facility] Thin prep Papanicolaou smear with manual screening 7 5-15 [facility] Absolute lymphocyte countOrd ered By: Dago Emery on 10-10-2022 Lymphocytes Auto (Unsp spec) [#/Vol] 1.27 10*3/uL 0.83-4.51 [facility] Basophil percentageOrdered B y: Dago Emery on 10-10-2022 Basophils/100 WBC (Bld) 0.4 % 0-1 [facility] Eosinophils/100 WBC (Bld) 5.2 % 0-5 [facility] Neutrophils (Bld) [#/Vol] 3.2 10*3/uL 2.0-7.7 [facility] Neutrophils/100 WBC (Bld) 61.5 % 47-70 [facility] WBC (Bld) [#/Vol] 5.2 10*3/uL 4.4-11.0 [facility] Chloride [Moles/Vol] 109 mmol/L 98-107 [facility] [place] Glucose [Mass/Vol] 101 mg/dL 74-106 [facility] Comment on above: Fasting Glucose resu lt from 100 to 125 mg/dL suggests IMPAIRED HOMEOSTASIS per A.D.A. criteria. Potassium [Moles/Vol] 3.9 mmol/L 3.5-5.1 [facility] Sodium [Moles/Vol] 138 mmol/L 136-145 [facility] Blood erythrocytes count (nu mber/volume)Ordered By: Dago Emery on 10-10-2022 RBC (Bld) [#/Vol] 2.93 10*6/uL 4.2-5.4 [facility] Blood hemoglobin measurement (mass/volume)Ordered By: Dago Emery on 10-10-2022 Hemoglobin (Bld) [Mass/Vol] 10.5 g/dL 12.0-15.0 [facility] Blood lymphocytes/100 leukoc ytesOrdered By: Dago Emery on 10-10-2022 Lymphocytes/100 WBC (Bld) 24.4 % 19-41 [facility] Blood monocytes/100 leukocyt esOrdered By: Dago Emery on 10-10-2022 Monocytes/100 WBC (Bld) 8.1 % 0-10 [facility] Blood platelet mean volumeOr dered By: Dago Emery on 10-10-2022 Platelet mean volume (Bld) [Entitic vol] 10.3 fL 6.2-12.0 [facility] Determination of erythrocyte mean corpuscular volume (MCV)Ordered By: Dago Emery on 10-10-2022 MCV (RBC) [Entitic vol] 109.6 fL 81-99 [facility] Hematocrit Auto (Bld) [Volum e fraction]Ordered By: Dago Emery 10-10-2022 Hematocrit (Bld) [Volume fraction] 32.1 % 37-47 [facility] Laboratory - Chemistry and C hemistry - challengeOrdered By: Dago Emery 10-10-2022 CO2 [Moles/Vol] 24.0 mmol/L 21.0-32.0 [facility] Urea nitrogen/Creatinine [Mass ratio] 24.1 mg/mg 10-20 [facility] - Hematology and Cell countsOrdered By: Dago Emery 10-10-2022 Erythrocyte distribution width (RBC) [Entitic vol] 54.4 fL 35.1-43.9 [facility] Erythrocyte distribution width (RBC) [Ratio] 13.9 % 11.6-14.6 [facility] Immature granulocytes/100 WBC (Bld) 0.400 % 0.0-0.9 [facility] Comment on above: IG% - Immature Granu locytes (promyelocytes, myelocytes and metamyelocytes) > 1% indicates that a LEFT SHIFT is Present. MCH (RBC) [Entitic mass] 35.8 pg 27.0-32.0 [facility] Nucleated RBC/100 WBC (Bld) [Ratio] 0 % 0-5 [facility] MCHC Auto (RBC) [Mass/Vol]Or dered By: Dago Emery on 10-10-2022 MCHC (RBC) [Mass/Vol] 32.7 g/dL 32-36 [facility] No Panel InformationOrdered By: Dago Emery on 10-10-2022 Estimated Creatinine Clearance Calc 41.05 ml/min [facility] Estimated GFR (MDRD) Amer 69 mL/min >60 [facility] Comment on above: GFR Calc Estimated GFR (MDRD) Non-Af Amer 57 mL/min >60 [facility] Comment on above: Non- GFR Calc Platelets bldOrdered By: Dago Emery on 10-10-2022 Platelets (Bld) [#/Vol] 409 10*3/uL 150-450 [facility] Serum or plasma calcium niels urement (mass/volume)Ordered By: Dago Emery on 10-10-2022 Calcium [Mass/Vol] 8.7 mg/dL 8.5-10.1 [facility] Serum or plasma creatinine m easurement (mass/volume)Ordered By: Dago Emery on 10-10-2022 Creatinine [Mass/Vol] 1.00 mg/dL 0.55-1.02 [facility] Comment on above: The validity of the calculated GFR & GFRAA in patients over 70 years has not been determined. Clinical correlation is essential. Serum or plasma urea nitroge n measurement (mass/volume)Ordered By: Dago Emery on 10-10-2022 Urea nitrogen [Mass/Vol] 24 mg/dL -18 [facility] Thin prep Papanicolaou smear with manual screeningOrdered By: Dago Emery on 10-10-2022 Thin prep Papanicolaou smear with manual screening 5 5-15 [facility] Absolute lymphocyte countOrd ered By: Dr. Pate on 08-05-2022 Lymphocytes Auto (Unsp spec) [#/Vol] 1.00 10*3/uL 0.83-4.51 [facility] Basophil percentageOrdered B y: Dr. Pate on 08-05-2022 Basophils/100 WBC (Bld) 0.6 % 0-1 [facility] Chloride [Moles/Vol] 111 mmol/L 98-107 [facility] [place] Eosinophils/100 WBC (Bld) 2.5 % 0-5 [facility] Glucose [Mass/Vol] 116 mg/dL 74-106 [facility] Comment on above: Fasting Glucose resu lt from 100 to 125 mg/dL suggests IMPAIRED HOMEOSTASIS per A.D.A. criteria. Neutrophils (Bld) [#/Vol] 3.5 10*3/uL 2.0-7.7 [facility] Neutrophils/100 WBC (Bld) 67.0 % 47-70 [facility] Potassium [Moles/Vol] 3.9 mmol/L 3.5-5.1 [facility] Comment on above: Slight Hemolysis, Re sult may be falsely increased. Sodium [Moles/Vol] 141 mmol/L 136-145 [facility] WBC (Bld) [#/Vol] 5.3 10*3/uL 4.4-11.0 [facility] Blood erythrocytes count (nu mber/volume)Ordered By: Dr. Pate on 08-05-2022 RBC (Bld) [#/Vol] 3.36 10*6/uL 4.2-5.4 [facility] Blood hemoglobin measurement (mass/volume)Ordered By: Dr. Pate on 08-05-2022 Hemoglobin (Bld) [Mass/Vol] 12.4 g/dL 12.0-15.0 [facility] Blood lymphocytes/100 leukoc ytesOrdered By: Dr. Pate on 08-05-2022 Lymphocytes/100 WBC (Bld) 18.9 % 19-41 [facility] Blood monocytes/100 leukocyt esOrdered By: Dr. Pate on 08-05-2022 Monocytes/100 WBC (Bld) 10.2 % 0-10 [facility] Blood platelet mean volumeOr dered By: Dr. Pate on 08-05-2022 Platelet mean volume (Bld) [Entitic vol] 10.6 fL 6.2-12.0 [facility] Determination of erythrocyte mean corpuscular volume (MCV)Ordered By: Dr. Pate on 08-05-2022 MCV (RBC) [Entitic vol] 114.6 fL 81-99 [facility] Hematocrit Auto (Bld) [Volum e fraction]Ordered By: Dr. Pate on 08-05-2022 Hematocrit (Bld) [Volume fraction] 38.5 % 37-47 [facility] - Chemistry and C hemistry - challengeOrdered By: Dr. Pate on 08-05-2022 CO2 [Moles/Vol] 24.0 mmol/L 21.0-32.0 [facility] Urea nitrogen/Creatinine [Mass ratio] 23.1 mg/mg 10-20 [facility] - Hematology and Cell countsOrdered By: Dr. Pate on 08-05-2022 Erythrocyte distribution width (RBC) [Entitic vol] 59.2 fL 35.1-43.9 [facility] Erythrocyte distribution width (RBC) [Ratio] 14.0 % 11.6-14.6 [facility] Immature granulocytes/100 WBC (Bld) 0.800 % 0.0-0.9 [facility] Comment on above: IG% - Immature Granu locytes (promyelocytes, myelocytes and metamyelocytes) > 1% indicates that a LEFT SHIFT is Present. MCH (RBC) [Entitic mass] 36.9 pg 27.0-32.0 [facility] Nucleated RBC/100 WBC (Bld) [Ratio] 0 % 0-5 [facility] MCHC Auto (RBC) [Mass/Vol]Or dered By: Dr. Pate on 08-05-2022 MCHC (RBC) [Mass/Vol] 32.2 g/dL 32-36 [facility] No Panel InformationOrdered By: Dr. Pate on 08-05-2022 Estimated Creatinine Clearance Calc 37.88 ml/min [facility] Estimated GFR (MDRD) Amer 66 mL/min >60 [facility] Comment on above: GFR Calc Estimated GFR (MDRD) Non-Af Amer 54 mL/min >60 [facility] Comment on above: Non- GFR Calc Platelets bldOrdered By: Dr. Pate on 08-05-2022 Platelets (Bld) [#/Vol] 327 10*3/uL 150-450 [facility] Serum or plasma albumin niels urement (mass/volume)Ordered By: Dr. Pate on 08-05-2022 Albumin [Mass/Vol] 3.3 g/dL 3.2-5.0 [facility] Serum or plasma calcium niels urement (mass/volume)Ordered By: Dr. Pate on 08-05-2022 Calcium [Mass/Vol] 8.9 mg/dL 8.5-10.1 [facility] Serum or plasma creatinine m easurement (mass/volume)Ordered By: Dr. Pate on 08-05-2022 Creatinine [Mass/Vol] 1.04 mg/dL 0.55-1.02 [facility] Comment on above: The validity of the calculated GFR & GFRAA in patients over 70 years has not been determined. Clinical correlation is essential. Serum or plasma urea nitroge n measurement (mass/volume)Ordered By: Dr. Pate on 08-05-2022 Urea nitrogen [Mass/Vol] 24 mg/dL 7-18 [facility] Thin prep Papanicolaou smear with manual screeningOrdered By: Dr. Pate on 08-05-2022 Thin prep Papanicolaou smear with manual screening 6 5-15 [facility] Absolute lymphocyte countOrd ered By: Dr. Pate on 07-20-2022 Lymphocytes Auto (Unsp spec) [#/Vol] 1.03 10*3/uL 0.83-4.51 [facility] Basophil percentageOrdered B y: Dr. Pate on 07-20-2022 Basophils/100 WBC (Bld) 0.3 % 0-1 [facility] Bilirubin [Mass/Vol] 0.40 mg/dL 0.20-1.00 [facility] [place] Comment on above: For patients on eltr ombopag therapy, use of Dimension [place] TBIL is not recommended. Chloride [Moles/Vol] 107 mmol/L 98-107 [facility] [place] Eosinophils/100 WBC (Bld) 2.4 % 0-5 [facility] Glucose [Mass/Vol] 109 mg/dL 74-106 [facility] Comment on above: Fasting Glucose resu lt from 100 to 125 mg/dL suggests IMPAIRED HOMEOSTASIS per A.D.A. criteria. Neutrophils (Bld) [#/Vol] 4.0 10*3/uL 2.0-7.7 [facility] Neutrophils/100 WBC (Bld) 68.9 % 47-70 [facility] Potassium [Moles/Vol] 4.0 mmol/L 3.5-5.1 [facility] Protein [Mass/Vol] 7.2 g/dL 6.4-8.2 [facility] Sodium [Moles/Vol] 140 mmol/L 136-145 [facility] WBC (Bld) [#/Vol] 5.8 10*3/uL 4.4-11.0 [facility] Blood erythrocytes count (nu mber/volume)Ordered By: Dr. Pate on 07-20-2022 RBC (Bld) [#/Vol] 3.25 10*6/uL 4.2-5.4 [facility] Blood hemoglobin measurement (mass/volume)Ordered By: Dr. Pate on 07-20-2022 Hemoglobin (Bld) [Mass/Vol] 12.2 g/dL 12.0-15.0 [facility] Blood lymphocytes/100 leukoc ytesOrdered By: Dr. Pate on 07-20-2022 Lymphocytes/100 WBC (Bld) 17.7 % 19-41 [facility] Blood monocytes/100 leukocyt esOrdered By: Dr. Pate on 07-20-2022 Monocytes/100 WBC (Bld) 10.2 % 0-10 [facility] Blood platelet mean volumeOr dered By: Dr. Pate on 07-20-2022 Platelet mean volume (Bld) [Entitic vol] 11.0 fL 6.2-12.0 [facility] Determination of erythrocyte mean corpuscular volume (MCV)Ordered By: Dr. Pate on 07-20-2022 MCV (RBC) [Entitic vol] 115.1 fL 81-99 [facility] Hematocrit Auto (Bld) [Volum e fraction]Ordered By: Dr. Pate on 07-20-2022 Hematocrit (Bld) [Volume fraction] 37.4 % 37-47 [facility] - Chemistry and C hemistry - challengeOrdered By: Dr. Pate on 07-20-2022 ALP [Catalytic activity/Vol] 89 U/L 45-117 [facility] ALT [Catalytic activity/Vol] 26 U/L 13-56 [facility] CO2 [Moles/Vol] 25.0 mmol/L 21.0-32.0 [facility] Globulin (S) [Mass/Vol] 3.9 g/dL 2.2-4.2 [facility] Urea nitrogen/Creatinine [Mass ratio] 18.1 mg/mg 10-20 [facility] - Hematology and Cell countsOrdered By: Dr. Pate on 07-20-2022 Erythrocyte distribution width (RBC) [Entitic vol] 63.6 fL 35.1-43.9 [facility] Erythrocyte distribution width (RBC) [Ratio] 15.0 % 11.6-14.6 [facility] Immature granulocytes/100 WBC (Bld) 0.500 % 0.0-0.9 [facility] Comment on above: IG% - Immature Granu locytes (promyelocytes, myelocytes and metamyelocytes) > 1% indicates that a LEFT SHIFT is Present. MCH (RBC) [Entitic mass] 37.5 pg 27.0-32.0 [facility] Nucleated RBC/100 WBC (Bld) [Ratio] 0 % 0-5 [facility] MCHC Auto (RBC) [Mass/Vol]Or dered By: Dr. Pate on 07-20-2022 MCHC (RBC) [Mass/Vol] 32.6 g/dL 32-36 [facility] No Panel InformationOrdered By: Dr. Pate on 07-20-2022 Estimated GFR (MDRD) Amer 58 mL/min >60 [facility] Comment on above: GFR Calc Estimated GFR (MDRD) Non-Af Amer 48 mL/min >60 [facility] Comment on above: Non- GFR Calc Thyroid Stimulating Hormone (TSH) 1.57 uIU/mL 0.358-3.74 [facility] Vitamin D 25-Hydroxy 32.7 ng/mL [facility] [place] Comment on above: Vitamin D 25(OH) Sta tus Range Deficiency <20 ng/mL (50nmol/L) Insufficiency 20 - 30 ng/mL (50 - 75 nmol/L) Sufficiency 30 - 100 ng/mL (75 - 250 nmol/L) Toxicity >100 ng/mL (>250 nmol/L) Platelets bldOrdered By: Dr. Pate on 07-20-2022 Platelets (Bld) [#/Vol] 262 10*3/uL 150-450 [facility] Serum or plasma albumin niels urement (mass/volume)Ordered By: Dr. Pate on 07-20-2022 Albumin [Mass/Vol] 3.3 g/dL 3.2-5.0 [facility] Serum or plasma albumin/glob ulin mass ratioOrdered By: Dr. Pate on 07-20-2022 Albumin/Globulin [Mass ratio] 0.8 {ratio} 0.9-2.4 [facility] Serum or plasma calcium niels urement (mass/volume)Ordered By: Dr. Pate on 07-20-2022 Calcium [Mass/Vol] 8.9 mg/dL 8.5-10.1 [facility] Serum or plasma creatinine m easurement (mass/volume)Ordered By: Dr. Pate on 07-20-2022 Creatinine [Mass/Vol] 1.16 mg/dL 0.55-1.02 [facility] Comment on above: The validity of the calculated GFR & GFRAA in patients over 70 years has not been determined. Clinical correlation is essential. Serum or plasma urea nitroge n measurement (mass/volume)Ordered By: Dr. Pate on 07-20-2022 Urea nitrogen [Mass/Vol] 21 mg/dL 7-18 [facility] Thin prep Papanicolaou smear with manual screeningOrdered By: Dr. Pate on 07-20-2022 Thin prep Papanicolaou smear with manual screening 28 U/L 15-37 [facility] Thin prep Papanicolaou smear with manual screening 8 5-15 [facility] Absolute lymphocyte countOrd ered By: Dr. Pate on 05-06-2022 Lymphocytes Auto (Unsp spec) [#/Vol] 1.13 10*3/uL 0.83-4.51 [facility] Basophil percentageOrdered B y: Dr. Pate on 05-06-2022 Basophils/100 WBC (Bld) 0.2 % 0-1 [facility] Bilirubin [Mass/Vol] 0.40 mg/dL 0.20-1.00 [facility] [place] Comment on above: For patients on eltr ombopag therapy, use of Dimension [place] TBIL is not recommended. Chloride [Moles/Vol] 106 mmol/L 98-107 [facility] [place] Eosinophils/100 WBC (Bld) 1.0 % 0-5 [facility] Glucose [Mass/Vol] 133 mg/dL 74-106 [facility] Comment on above: Fasting Glucose resu lt greater than or equal to 126 mg/dL suggests DIABETES MELLITUS per A.D.A. criteria. Neutrophils (Bld) [#/Vol] 2.5 10*3/uL 2.0-7.7 [facility] Neutrophils/100 WBC (Bld) 60.9 % 47-70 [facility] Potassium [Moles/Vol] 3.4 mmol/L 3.5-5.1 [facility] Protein [Mass/Vol] 7.2 g/dL 6.4-8.2 [facility] Sodium [Moles/Vol] 140 mmol/L 136-145 [facility] WBC (Bld) [#/Vol] 4.1 10*3/uL 4.4-11.0 [facility] Blood erythrocytes count (nu mber/volume)Ordered By: Dr. Pate on 05-06-2022 RBC (Bld) [#/Vol] 3.32 10*6/uL 4.2-5.4 [facility] Blood hemoglobin measurement (mass/volume)Ordered By: Dr. Pate on 05-06-2022 Hemoglobin (Bld) [Mass/Vol] 12.4 g/dL 12.0-15.0 [facility] Blood lymphocytes/100 leukoc ytesOrdered By: Dr. Pate on 05-06-2022 Lymphocytes/100 WBC (Bld) 27.5 % 19-41 [facility] Blood monocytes/100 leukocyt esOrdered By: Dr. Pate on 05-06-2022 Monocytes/100 WBC (Bld) 9.7 % 0-10 [facility] Blood platelet mean volumeOr dered By: Dr. Pate on 05-06-2022 Platelet mean volume (Bld) [Entitic vol] 10.6 fL 6.2-12.0 [facility] Determination of erythrocyte mean corpuscular volume (MCV)Ordered By: Dr. Pate on 05-06-2022 MCV (RBC) [Entitic vol] 112.0 fL 81-99 [facility] Hematocrit Auto (Bld) [Volum e fraction]Ordered By: Dr. Pate on 05-06-2022 Hematocrit (Bld) [Volume fraction] 37.2 % 37-47 [facility] - Chemistry and C hemistry - challengeOrdered By: Dr. Pate on 05-06-2022 ALP [Catalytic activity/Vol] 75 U/L 45-117 [facility] ALT [Catalytic activity/Vol] 17 U/L 13-56 [facility] CO2 [Moles/Vol] 27.0 mmol/L 21.0-32.0 [facility] Globulin (S) [Mass/Vol] 3.8 g/dL 2.2-4.2 [facility] Urea nitrogen/Creatinine [Mass ratio] 20.2 mg/mg 10-20 [facility] - Hematology and Cell countsOrdered By: Dr. Pate on 05-06-2022 Erythrocyte distribution width (RBC) [Entitic vol] 62.5 fL 35.1-43.9 [facility] Erythrocyte distribution width (RBC) [Ratio] 15.3 % 11.6-14.6 [facility] Immature granulocytes/100 WBC (Bld) 0.700 % 0.0-0.9 [facility] Comment on above: IG% - Immature Granu locytes (promyelocytes, myelocytes and metamyelocytes) > 1% indicates that a LEFT SHIFT is Present. MCH (RBC) [Entitic mass] 37.3 pg 27.0-32.0 [facility] Nucleated RBC/100 WBC (Bld) [Ratio] 0 % 0-5 [facility] MCHC Auto (RBC) [Mass/Vol]Or dered By: Dr. Pate on 05-06-2022 MCHC (RBC) [Mass/Vol] 33.3 g/dL 32-36 [facility] No Panel InformationOrdered By: Dr. Pate on 05-06-2022 Estimated Creatinine Clearance Calc 36.73 ml/min [facility] Estimated GFR (MDRD) Amer 62 mL/min >60 [facility] Comment on above: GFR Calc Estimated GFR (MDRD) Non-Af Amer 52 mL/min >60 [facility] Comment on above: Non- GFR Calc Platelets bldOrdered By: Dr. Pate on 05-06-2022 Platelets (Bld) [#/Vol] 239 10*3/uL 150-450 [facility] Serum or plasma albumin niels urement (mass/volume)Ordered By: Dr. Pate on 05-06-2022 Albumin [Mass/Vol] 3.4 g/dL 3.2-5.0 [facility] Serum or plasma albumin/glob ulin mass ratioOrdered By: Dr. Pate on 05-06-2022 Albumin/Globulin [Mass ratio] 0.9 {ratio} 0.9-2.4 [facility] Serum or plasma calcium niels urement (mass/volume)Ordered By: Dr. Pate on 05-06-2022 Calcium [Mass/Vol] 8.9 mg/dL 8.5-10.1 [facility] Serum or plasma creatinine m easurement (mass/volume)Ordered By: Dr. Pate on 05-06-2022 Creatinine [Mass/Vol] 1.09 mg/dL 0.55-1.02 [facility] Comment on above: The validity of the calculated GFR & GFRAA in patients over 70 years has not been determined. Clinical correlation is essential. Serum or plasma urea nitroge n measurement (mass/volume)Ordered By: Dr. Pate on 05-06-2022 Urea nitrogen [Mass/Vol] 22 mg/dL 7-18 [facility] Thin prep Papanicolaou smear with manual screeningOrdered By: Dr. Pate on 05-06-2022 Thin prep Papanicolaou smear with manual screening 22 U/L 15-37 [facility] Thin prep Papanicolaou smear with manual screening 7 5-15 [facility] Absolute lymphocyte countOrd ered By: Dr. Pate on 02-04-2022 Lymphocytes Auto (Unsp spec) [#/Vol] 1.02 10*3/uL 0.83-4.51 [facility] Basophil percentageOrdered B y: Dr. Pate on 02-04-2022 Basophils/100 WBC (Bld) 0.5 % 0-1 [facility] Bilirubin [Mass/Vol] 0.50 mg/dL 0.20-1.00 [facility] [place] Comment on above: For patients on eltr ombopag therapy, use of Dimension [place] TBIL is not recommended. Chloride [Moles/Vol] 106 mmol/L 98-107 [facility] [place] Eosinophils/100 WBC (Bld) 0.5 % 0-5 [facility] Glucose [Mass/Vol] 117 mg/dL 74-106 [facility] Comment on above: Fasting Glucose resu lt from 100 to 125 mg/dL suggests IMPAIRED HOMEOSTASIS per A.D.A. criteria. Neutrophils (Bld) [#/Vol] 2.9 10*3/uL 2.0-7.7 [facility] Neutrophils/100 WBC (Bld) 65.2 % 47-70 [facility] Potassium [Moles/Vol] 4.2 mmol/L 3.5-5.1 [facility] Comment on above: Slight Hemolysis, Re sult may be falsely increased. Protein [Mass/Vol] 7.7 g/dL 6.4-8.2 [facility] Sodium [Moles/Vol] 141 mmol/L 136-145 [facility] WBC (Bld) [#/Vol] 4.4 10*3/uL 4.4-11.0 [facility] Blood erythrocytes count (nu mber/volume)Ordered By: Dr. Pate on 02-04-2022 RBC (Bld) [#/Vol] 3.63 10*6/uL 4.2-5.4 [facility] Blood hemoglobin measurement (mass/volume)Ordered By: Dr. Pate on 02-04-2022 Hemoglobin (Bld) [Mass/Vol] 13.2 g/dL 12.0-15.0 [facility] Blood lymphocytes/100 leukoc ytesOrdered By: Dr. Pate on 02-04-2022 Lymphocytes/100 WBC (Bld) 23.3 % 19-41 [facility] Blood monocytes/100 leukocyt esOrdered By: Dr. Pate on 02-04-2022 Monocytes/100 WBC (Bld) 9.8 % 0-10 [facility] Blood platelet mean volumeOr dered By: Dr. Pate on 02-04-2022 Platelet mean volume (Bld) [Entitic vol] 10.4 fL 6.2-12.0 [facility] Determination of erythrocyte mean corpuscular volume (MCV)Ordered By: Dr. Pate on 02-04-2022 MCV (RBC) [Entitic vol] 111.0 fL 81-99 [facility] Hematocrit Auto (Bld) [Volum e fraction]Ordered By: Dr. Pate on 02-04-2022 Hematocrit (Bld) [Volume fraction] 40.3 % 37-47 [facility] - Chemistry and C hemistry - challengeOrdered By: Dr. Pate on 02-04-2022 ALP [Catalytic activity/Vol] 82 U/L 45-117 [facility] ALT [Catalytic activity/Vol] 23 U/L 13-56 [facility] CO2 [Moles/Vol] 28.0 mmol/L 21.0-32.0 [facility] Globulin (S) [Mass/Vol] 4.3 g/dL 2.2-4.2 [facility] Urea nitrogen/Creatinine [Mass ratio] 16.0 mg/mg 10-20 [facility] - Hematology and Cell countsOrdered By: Dr. Pate on 02-04-2022 Erythrocyte distribution width (RBC) [Entitic vol] 63.5 fL 35.1-43.9 [facility] Erythrocyte distribution width (RBC) [Ratio] 15.6 % 11.6-14.6 [facility] Immature granulocytes/100 WBC (Bld) 0.700 % 0.0-0.9 [facility] Comment on above: IG% - Immature Granu locytes (promyelocytes, myelocytes and metamyelocytes) > 1% indicates that a LEFT SHIFT is Present. MCH (RBC) [Entitic mass] 36.4 pg 27.0-32.0 [facility] Nucleated RBC/100 W[facility] (Bld) [[facility]] 0 % 0-[facility] [Mass/Vol]Or dered By: Dr. Pate on 02-04-2022 MCHC (RBC) [Mass/Vol] 32.8 g/dL 32-36 [facility] No Panel InformationOrdered By: Dr. Pate on 02-04-2022 Estimated Creatinine Clearance Calc 37.77 ml/min [facility] Estimated GFR (MDRD) Amer 64 mL/min >60 [facility] Comment on above: GFR Calc Estimated GFR (MDRD) Non-Af Amer 53 mL/min >60 [facility] Comment on above: Non- GFR Calc Platelets bldOrdered By: Dr. Pate on 02-04-2022 Platelets (Bld) [#/Vol] 300 10*3/uL 150-450 [facility] Serum or plasma albumin niels urement (mass/volume)Ordered By: Dr. Pate on 02-04-2022 Albumin [Mass/Vol] 3.4 g/dL 3.2-5.0 [facility] Serum or plasma albumin/glob ulin mass ratioOrdered By: Dr. Pate on 02-04-2022 Albumin/Globulin [Mass ratio] 0.8 {ratio} 0.9-2.4 [facility] Serum or plasma calcium niels urement (mass/volume)Ordered By: Dr. Pate on 02-04-2022 Calcium [Mass/Vol] 9.4 mg/dL 8.5-10.1 [facility] Serum or plasma creatinine m easurement (mass/volume)Ordered By: Dr. Pate on 02-04-2022 Creatinine [Mass/Vol] 1.06 mg/dL 0.55-1.02 [facility] [facility] Comment on above: The validity of the calculated GFR & GFRAA in patients over 70 years has not been determined. Clinical correlation is essential. Serum or plasma urea nitroge n measurement (mass/volume)Ordered By: Dr. Pate on 02-04-2022 Urea nitrogen [Mass/Vol] 17 mg/dL 7-18 [facility] Thin prep Papanicolaou smear with manual screeningOrdered By: Dr. Pate on 02-04-2022 Thin prep Papanicolaou smear with manual screening 25 U/L 15-37 [facility] Comment on above: Slight Hemolysis, Re sult may be falsely increased. Thin prep Papanicolaou smear with manual screening 7 5-15 [facility] Absolute lymphocyte countOrd ered By: Dr. Emery on 01-19-2022 Lymphocytes Auto (Unsp spec) [#/Vol] 1.06 10*3/uL 0.83-4.51 [facility] Basophil percentageOrdered B y: Dr. Emery on 01-19-2022 Basophils/100 WBC (Bld) 0.4 % 0-1 [facility] Bilirubin [Mass/Vol] 0.50 mg/dL 0.20-1.00 [facility] [place] Comment on above: For patients on eltr ombopag therapy, use of Dimension [place] TBIL is not recommended. Chloride [Moles/Vol] 106 mmol/L 98-107 [facility] [place] Eosinophils/100 WBC (Bld) 1.1 % 0-5 [facility] Glucose [Mass/Vol] 122 mg/dL 74-106 [facility] Comment on above: Fasting Glucose resu lt from 100 to 125 mg/dL suggests IMPAIRED HOMEOSTASIS per A.D.A. criteria. Neutrophils (Bld) [#/Vol] 4.0 10*3/uL 2.0-7.7 [facility] Neutrophils/100 WBC (Bld) 70.3 % 47-70 [facility] Potassium [Moles/Vol] 3.8 mmol/L 3.5-5.1 [facility] Comment on above: Slight Hemolysis, Re sult may be falsely increased. Protein [Mass/Vol] 7.3 g/dL 6.4-8.2 [facility] Sodium [Moles/Vol] 140 mmol/L 136-145 [facility] WBC (Bld) [#/Vol] 5.6 10*3/uL 4.4-11.0 [facility] Blood erythrocytes count (nu mber/volume)Ordered By: Dr. Emery on 01-19-2022 RBC (Bld) [#/Vol] 3.58 10*6/uL 4.2-5.4 [facility] Blood hemoglobin measurement (mass/volume)Ordered By: Dr. Emery on 01-19-2022 Hemoglobin (Bld) [Mass/Vol] 13.5 g/dL 12.0-15.0 [facility] Blood lymphocytes/100 leukoc ytesOrdered By: Dr. Emery on 01-19-2022 Lymphocytes/100 WBC (Bld) 18.9 % 19-41 [facility] Blood monocytes/100 leukocyt esOrdered By: Dr. Emery on 01-19-2022 Monocytes/100 WBC (Bld) 8.9 % 0-10 [facility] Blood platelet mean volumeOr dered By: Dr. Emery on 01-19-2022 Platelet mean volume (Bld) [Entitic vol] 10.4 fL 6.2-12.0 [facility] Determination of erythrocyte mean corpuscular volume (MCV)Ordered By: Dr. Emery on 01-19-2022 MCV (RBC) [Entitic vol] 110.1 fL 81-99 [facility] Hematocrit Auto (Bld) [Volum e fraction]Ordered By: Dr. Emery on 01-19-2022 Hematocrit (Bld) [Volume fraction] 39.4 % 37-47 [facility] Laboratory - Chemistry and C hemistry - challengeOrdered By: Dr. Emery on 01-19-2022 ALP [Catalytic activity/Vol] 87 U/L 45-117 [facility] ALT [Catalytic activity/Vol] 21 U/L 13-56 [facility] CO2 [Moles/Vol] 27.0 mmol/L 21.0-32.0 [facility] Globulin (S) [Mass/Vol] 4.0 g/dL 2.2-4.2 [facility] Urea nitrogen/Creatinine [Mass ratio] 16.0 mg/mg 10-20 [facility] Laboratory - Hematology and Cell countsOrdered By: Dr. Emery on 01-19-2022 Erythrocyte distribution width (RBC) [Entitic vol] 61.0 fL 35.1-43.9 [facility] Erythrocyte distribution width (RBC) [Ratio] 15.3 % 11.6-14.6 [facility] Immature granulocytes/100 WBC (Bld) 0.400 % 0.0-0.9 [facility] Comment on above: IG% - Immature Granu locytes (promyelocytes, myelocytes and metamyelocytes) > 1% indicates that a LEFT SHIFT is Present. MCH (RBC) [Entitic mass] 37.7 pg 27.0-32.0 [facility] Nucleated RBC/100 WBC (Bld) [Ratio] 0 % 0-5 [facility] MCHC Auto (RBC) [Mass/Vol]Or dered By: Dr. Emery on 01-19-2022 MCHC (RBC) [Mass/Vol] 34.3 g/dL 32-36 [facility] No Panel InformationOrdered By: Dr. Emery on 01-19-2022 Estimated GFR (MDRD) Amer 64 mL/min >60 [facility] Comment on above: GFR Calc Estimated GFR (MDRD) Non-Af Amer 53 mL/min >60 [facility] Comment on above: Non- GFR Calc Thyroid Stimulating Hormone (TSH) 1.77 uIU/mL 0.358-3.74 [facility] Vitamin D 25-Hydroxy 28.7 ng/mL [facility] [place] Comment on above: Vitamin D 25(OH) Sta tus Range Deficiency <20 ng/mL (50nmol/L) Insufficiency 20 - 30 ng/mL (50 - 75 nmol/L) Sufficiency 30 - 100 ng/mL (75 - 250 nmol/L) Toxicity >100 ng/mL (>250 nmol/L) Platelets bldOrdered By: Dr. Emery on 01-19-2022 Platelets (Bld) [#/Vol] 258 10*3/uL 150-450 [facility] Serum or plasma albumin niels urement (mass/volume)Ordered By: Dr. Emery on 01-19-2022 Albumin [Mass/Vol] 3.3 g/dL 3.2-5.0 [facility] Serum or plasma albumin/glob ulin mass ratioOrdered By: Dr. Emery on 01-19-2022 Albumin/Globulin [Mass ratio] 0.8 {ratio} 0.9-2.4 [facility] Serum or plasma calcium niels urement (mass/volume)Ordered By: Dr. Emery on 01-19-2022 Calcium [Mass/Vol] 9.2 mg/dL 8.5-10.1 [facility] Serum or plasma creatinine m easurement (mass/volume)Ordered By: Dr. Emery on 01-19-2022 Creatinine [Mass/Vol] 1.06 mg/dL 0.55-1.02 [facility] Comment on above: The validity of the calculated GFR & GFRAA in patients over 70 years has not been determined. Clinical correlation is essential. Serum or plasma urea nitroge n measurement (mass/volume)Ordered By: Dr. Emery on 01-19-2022 Urea nitrogen [Mass/Vol] 17 mg/dL 7- [facility] Thin prep Papanicolaou smear with manual screeningOrdered By: Dr. Emery on 01-19-2022 Thin prep Papanicolaou smear with manual screening 24 U/L [facility] Comment on above: Slight Hemolysis, Re sult may be falsely increased. Thin prep Papanicolaou smear with manual screening 7 - [facility] Absolute lymphocyte counton 11-04-2021 Lymphocytes Auto (Unsp spec) [#/Vol] 1.00 10*3/uL 0.83-4.51 [facility] Work Phone: Basophil percentageon 2021 Basophils/100 WBC (Bld) 0.3 % 0-1 [facility] Work Phone: Bilirubin [Mass/Vol] 0.50 mg/dL 0.20-1.00 [facility] [place] Work Phone: Comment on above: For patients on eltr ombopag therapy, use of Dimension [place] TBIL is not recommended. Chloride [Moles/Vol] 109 mmol/L 98-107 [facility] [place] Work Phone: [phone] Eosinophils/100 WBC (Bld) 1.0 % 0-5 [facility] Work Phone: Glucose [Mass/Vol] 126 mg/dL 74-106 [facility] Work Phone: Comment on above: Fasting Glucose resu lt greater than or equal to 126 mg/dL suggests DIABETES MELLITUS per A.D.A. criteria. Neutrophils (Bld) [#/Vol] 4.5 10*3/uL 2.0-7.7 [facility] Work Phone: Neutrophils/100 WBC (Bld) 75.0 % 47-70 [facility] Work Phone: Potassium [Moles/Vol] 3.7 mmol/L 3.5-5.1 [facility] Work Phone: Comment on above: Slight Hemolysis, Re sult may be falsely increased. Protein [Mass/Vol] 7.5 g/dL 6.4-8.2 [facility] Work Phone: Sodium [Moles/Vol] 141 mmol/L 136-145 [facility] Work Phone: WBC (Bld) [#/Vol] 6.0 10*3/uL 4.4-11.0 [facility] Work Phone: Blood erythrocytes count (nu mber/volume)on 11-04-2021 RBC (Bld) [#/Vol] 3.60 10*6/uL 4.2-5.4 [facility] Work Phone: Blood hemoglobin measurement (mass/volume)on 11-04-2021 Hemoglobin (Bld) [Mass/Vol] 13.3 g/dL 12.0-15.0 [facility] Work Phone: Blood lymphocytes/100 leukoc yteson 11-04-2021 Lymphocytes/100 WBC (Bld) 16.7 % 19-41 [facility] Work Phone: Blood monocytes/100 leukocyt eson 11-04-2021 Monocytes/100 WBC (Bld) 6.5 % 0-10 [facility] Work Phone: Blood platelet mean volumeon 11-04-2021 Platelet mean volume (Bld) [Entitic vol] 10.5 fL 6.2-12.0 [facility] Work Phone: Determination of erythrocyte mean corpuscular volume (MCV)on 11-04-2021 MCV (RBC) [Entitic vol] 111.9 fL 81-99 [facility] Work Phone: [phone] Hematocrit Auto (Bld) [Volum e fraction]on 11-04-2021 Hematocrit (Bld) [Volume fraction] 40.3 % 37-47 [facility] Work Phone: [phone] Laboratory - Chemistry and C hemistry - challengeon 11-04-2021 ALP [Catalytic activity/Vol] 82 U/L 45-117 [facility] Work Phone: ALT [Catalytic activity/Vol] 22 U/L 13-56 [facility] Work Phone: CO2 [Moles/Vol] 26.0 mmol/L 21.0-32.0 [facility] Work Phone: [phone] Globulin (S) [Mass/Vol] 4.2 g/dL 2.2-4.2 [facility] Work Phone: [phone] Urea nitrogen/Creatinine [Mass ratio] 14.0 mg/mg 10-20 [facility] Work Phone: Laboratory - Hematology and Cell countson 11-04-2021 Erythrocyte distribution width (RBC) [Entitic vol] 55.7 fL 35.1-43.9 [facility] Work Phone: [phone] Erythrocyte distribution width (RBC) [Ratio] 13.7 % 11.6-14.6 [facility] Work Phone: [phone] Immature granulocytes/100 WBC (Bld) 0.500 % 0.0-0.9 [facility] Work Phone: [phone] Comment on above: IG% - Immature Granu locytes (promyelocytes, myelocytes and metamyelocytes) > 1% indicates that a LEFT SHIFT is Present. MCH (RBC) [Entitic mass] 36.9 pg 27.0-32.0 [facility] Work Phone: Nucleated RBC/100 WBC (Bld) [Ratio] 0 % 0-5 [facility] Work Phone: MCHC Auto (RBC) [Mass/Vol]on 11-04-2021 MCHC (RBC) [Mass/Vol] 33.0 g/dL 32-36 [facility] Work Phone: No Panel Informationon 11-04 Estimated Creatinine Clearance Calc 35.12 ml/min [facility] Work Phone: Estimated GFR (MDRD) Amer 59 mL/min >60 [facility] Work Phone: Comment on above: GFR Calc Estimated GFR (MDRD) Non-Af Amer 49 mL/min >60 [facility] Work Phone: Comment on above: Non- GFR Calc Platelets bldon 11-04-2021 Platelets (Bld) [#/Vol] 290 10*3/uL 150-450 [facility] Work Phone: Serum or plasma albumin niels urement (mass/volume)on 11-04-2021 Albumin [Mass/Vol] 3.3 g/dL 3.2-5.0 [facility] Work Phone: Serum or plasma albumin/glob ulin mass ratioon 11-04-2021 Albumin/Globulin [Mass ratio] 0.8 {ratio} 0.9-2.4 [facility] Work Phone: Serum or plasma calcium niels urement (mass/volume)on 11-04-2021 Calcium [Mass/Vol] 9.3 mg/dL 8.5-10.1 [facility] Work Phone: Serum or plasma creatinine m easurement (mass/volume)on 11-04-2021 Creatinine [Mass/Vol] 1.14 mg/dL 0.55-1.02 [facility] Work Phone: Comment on above: The validity of the calculated GFR & GFRAA in patients over 70 years has not been determined. Clinical correlation is essential. Serum or plasma urea nitroge n measurement (mass/volume)on 11-04-2021 Urea nitrogen [Mass/Vol] 16 mg/dL 7-18 [facility] Work Phone: Thin prep Papanicolaou smear with manual screeningon 11-04-2021 Thin prep Papanicolaou smear with manual screening 23 U/L 15-37 [facility] Work Phone: Comment on above: Slight Hemolysis, Re sult may be falsely increased. Thin prep Papanicolaou smear with manual screening 6 5-15 [facility] Work Phone: Blood platelet adequacy dete ction by light microscopyon 11-24-2018 Platelets LM Ql (Bld) ADEQUATE ADEQ [facility] Blood platelet morphology de termination (nominal result)on 11-24-2018 Platelet morphology finding Nom (Bld) LARGE [facility] Laboratory - Hematology and Cell countson 11-24-2018 Anisocytosis Ql (Bld) 2+ [facility] Macrocytes detectionon 11-24 Macrocytes Ql (Bld) 1+ [facility] Target cell detectionon Target cells LM Ql (Bld) RARE [facility] Hypochromatic red blood cell detectionon 10-27-2018 Hypochromia Ql (Bld) 1+ [facility] [place] No Panel Informationon 10-27 Differential Comment SCANNED [facility] [place] Comment on above: DIMORPHIC RBC POPULA TION NOTED Review by pathologiston Pathologist review Jack (Unsp spec) [Interp] Reviewed [facility] Comment on above: Previous reported re sult: Jahaira shayna Edited by: URIEL on 10/28/18:1304 AMENDED REPORT 10/28/18 1304 PATH REV previously reported as: Jahaira corral Absolute reticulocyte counto n 10-13-2018 Reticulocytes (Bld) [#/Vol] 0.00 10*3/uL 0-5 [facility] Laboratory - Hematology and Cell countson 09-29-2018 Erythrocyte distribution width (RBC) [Ratio] 24.6 % High 11.6-14.6 [facility] No Panel Informationon 09-29 Red Cell Distribution Width Diff 73.7 fl High 35.1-43.9 [facility] Total cell counton 9 Cells counted [employer] (Bld/Tiss) [#] Not Reportable [facility] RBC morphologyon 09-21-2018 RBC morphology finding Nom (Bld) N CHROM NORMAL NORM C&C [facility] [employer] mix RAST testo n 06-27-2018 LDH [Catalytic activity/Vol] 283 U/L High 84-246 [facility] Comment on above: Slight Hemolysis, Re sult may be falsely increased. Iron measurement (mass/mass) on 06-27-2018 Iron (Unsp spec) [Mass/Mass] 54 ug/dL 50-170 [facility] Comment on above: Slight Hemolysis, Re sult may be falsely increased. JAK2 V617F mutation detectio non 06-27-2018 JAK2 gene p.[id number] [facility] Ql (Bld/Tiss) Comment High . [facility] Comment on above: Result: POSITIVE for the detection of the V617F mutation.Interpretation: The assay detected the presence of a G toT nucleotide change encoding the V617F mutation withinJAK2. Interpretation of this result should be made in thecontext of other clinical, morphologic, and cytogeneticfindings. No Panel Informationon 06-27 JAK2 Mutation Comment . [facility] Comment on above: JAK2 is a cytoplasmi c tyrosine kinase with a ferrell role insignal transduction from multiple hematopoietic growthfactor receptors. A point mutation within exon 14 of theJAK2 gene ([id number]) encoding a valine to phenylalaninesubstitution at position [...] specific to JAK2 wild type (WT) and ARO1mgawur V617F. The [employer] Absolute Quantitation softwarewill compare the patient specimen valuse to the standardcurves and generate percent values for wild type andmutant type. In vitro studies have indicated that thisassay has an analytical sensitivity of 1%.References:Matthew EJ, Jean GREENBERG, Zachary PJ, et al. Acquiredmutation of the tyrosine kinase JAK2 in humanmyeloproliferative disorders. Lancet. 2004Jun 07;908(7949):2850-5935. Travis Santiago, Guido V, Mary Rosas JP. Aunique clonal JAK2 mutation leading to constitutivesignaling causes polycythaemia vera. Nature. 2005 Jul 17;891(5945):9507-5252.Nicolas R, Bolivar F, Jolynn , et al. A oeoj-ea-hboncrdq mutation of JAK2 in myeloproliferative disorders.N Engl J Med. 2005 Jul 17; 352(95):3438-7903. Miscellaneous Test See comment [facility] Comment on above: TEST RESULT [...] was developed and its performancecharacteristics determined by [employer] ([employer]). It has not been cleared orapproved by the U.S. Food and Drug Administration. The DNAprobe vendor for this study was [employer] ([employer]).Specimen Type Comment: BLOODDirector Review: Comment: Travis Chavez, PhD, [facility] .Specimen Type Comment: BLOODCells Counted 5Cells Analyzed [...] changes occur.Director Review: Comment:AMIE FERREIRA, PHD, [facility] TESTING PERFORMED AT [facility]. ORIGINAL REPORT ON FILE IN LAB CONTAINS ADDITIONAL TEST SITE INFORMATION. Total Iron Binding Capacity 289 ug/dL 250-450 [facility] Serum or plasma erythropoiet in (EPO) measurement (units/volume)on 06-27-2018 Erythropoietin (EPO) Qn 4.2 mIU/mL 2.6-18.5 [facility] Comment on above: Band Digital el DxI 800 Immunoassay SystemValues obtained with different assay methods or kits cannotbe used interchangeably. Results cannot be interpreted asabsolute evidence of the presence or absence of malignantdisease.Performed at: [facility] [id number] [employer] [facility], [facility], [place] [id number] Director: Mj Coronado MD, Phone: [phone] at: [facility] [id number] [employer], [facility], [place] [id number] Director: Mj Coronado MD, Phone: [phone] at: [facility] [place], [place] [id number] Director: Ruddy Parks PhD, Phone: [phone] Serum or plasma ferritin hayden surement (mass/volume)on 06-27-2018 Ferritin [Mass/Vol] 561 ng/mL High 8-252 [facility] Serum or plasma iron saturat ion measurement (mass fraction)on 06-27-2018 Iron saturation [Mass fraction] 18.7 % 15.0-55.0 [facility] Serum or plasma uric acid me asurement (mass/volume)on 06-27-2018 Urate [Mass/Vol] 4.2 mg/dL 2.6-6.0 [facility] Comment on above: The drugs N-Acetylcy steine and Metamizole may falsely depress this assay. Thin prep Papanicolaou smear with manual screeningon 06-27-2018 Thin prep Papanicolaou smear with manual screening 283 U/L 84-246 [facility] Comment on above: Slight Hemolysis, Re sult may be falsely increased. Vital Signs Date Time Vital Sign Value Performing Clinician Faci lity 10-21-2024 13:13-0400 Body temperature 98.3 [degF] Dr. Dago Emery MD Work Phone: [facility] 10-21-2024 13:13-0400 Diastolic blood pressure 67 mm[Hg] Dr. Dago Emery MD Work Phone: [facility] 10-21-2024 13:13-0400 Heart rate 62 /min Dr. Dago Emery MD Work Phone: [facility] 10-21-2024 13:13-0400 Respiratory rate 18 /min Dr. Dago Emery MD Work Phone: [facility] 10-21-2024 13:13-0400 SaO2% (BldA) [Mass fraction] 95 % Dr. Dago Emery MD Work Phone: [facility] 10-21-2024 13:13-0400 Systolic blood pressure 129 mm[Hg] Dr. Dago Emery MD Work Phone: [facility] 10-16-2024 22:13-0400 Inhaled oxygen flow rate 2 L/min Dr. Dago Emery MD Work Phone: [facility] 10-16-2024 20:13-0400 Body height 165.[address] Dago Emery MD Work Phone: 3(717)164-067756 [place] [address] 10-16-2024 20:13-0400 Body mass index (BMI) [Ratio] 31.1 kg/m2 Dr. Dago Emery MD Work Phone: 8(967)374-785456 [place] [address] 10-16-2024 20:13-0400 Body weight [address] Dago Emery MD Work Phone: 5(495)937-208856 [place] [address] 10-11-2024 15:05-0400 Body height 165.[address] Dago Emery MD Work Phone: 2(055)018-117356 [place] [address] 10-11-2024 15:05-0400 Body temperature 98.2 [degF] Dr. Dago Emery MD Work Phone: 2(832)809-484156 [place] [address] 10-11-2024 15:05-0400 Diastolic blood pressure 73 mm[Hg] Dr. Dago Emery MD Work Phone: 2(414)874-609356 [place] [address] 10-11-2024 15:05-0400 Heart rate 52 /min Dr. Dago Emery MD Work Phone: 0(622)127-178556 [place] [address] 10-11-2024 15:05-0400 Respiratory rate 16 /min Dr. Dago Emery MD Work Phone: 4(701)881-135956 [place] [address] 10-11-2024 15:05-0400 SaO2% (BldA) [Mass fraction] 98 % Dr. Dago Emery MD Work Phone: 4(489)441-296856 [place] [address] 10-11-2024 15:05-0400 Systolic blood pressure 169 mm[Hg] Dr. Dago Emery MD Work Phone: 3(416)184-818156 [place] [address] 09-20-2024 14:30-0400 Body height 165.[address] Dago Emery MD Work Phone: 4(559)531-057956 [place] [address] 09-20-2024 14:30-0400 Body mass index (BMI) [Ratio] 32.4 kg/m2 Dr. Dago Emery MD Work Phone: 3(988)576-228746 [place] [address] 09-20-2024 14:30-0400 Body weight 88.[address] Dago Emery MD Work Phone: 8(429)133-119556 [place] [address] 09-20-2024 14:30-0400 Diastolic blood pressure 73 mm[Hg] Dr. Dago Emery MD Work Phone: 7(496)152-422756 [place] [address] 09-20-2024 14:30-0400 Heart rate 56 /min Dr. Dago Emery MD Work Phone: 6(223)560-313556 [place] [address] 09-20-2024 14:30-0400 Respiratory rate 18 /min Dr. Dago Emery MD Work Phone: 1(769)929-882856 [place] [address] 09-20-2024 14:30-0400 SaO2% (BldA) [Mass fraction] 95 % Dr. Dago Emery MD Work Phone: 0(922)811-063956 [place] [address] 09-20-2024 14:30-0400 Systolic blood pressure 124 mm[Hg] Dr. Dago Emery MD Work Phone: 2(240)442-580656 [place] [address] 07-10-2024 13:45-0400 Body height 165.[address] Dago Emery MD Work Phone: 8(816)123-511156 [place] [address] 07-10-2024 13:45-0400 Body temperature 97.8 [degF] Dr. Dago Emery MD Work Phone: 7(538)977-504256 [place] [address] 07-10-2024 13:45-0400 Diastolic blood pressure 66 mm[Hg] Dr. Dago Emery MD Work Phone: 1(660)189-848556 [place] [address] 07-10-2024 13:45-0400 Heart rate 46 /min Dr. Dago Emery MD Work Phone: 8(479)906-942256 [place] [address] 07-10-2024 13:45-0400 Respiratory rate 16 /min Dr. Dago Emery MD Work Phone: 8(605)799-741156 [place] [address] 07-10-2024 13:45-0400 SaO2% (BldA) [Mass fraction] 98 % Dr. Dago Emery MD Work Phone: 9(805)860-591356 [place] [address] 07-10-2024 13:45-0400 Systolic blood pressure 104 mm[Hg] Dr. Dago Emery MD Work Phone: 5(531)531-302456 [place] [address] 02-22-2024 14:10-0500 Body weight 88.[address] Dago Emery MD Work Phone: [facility] 11-04-2022 14:40-0400 Body height 165.[address] Dago Emery Work Phone: [facility] 11-04-2022 14:40-0400 Body mass index (BMI) [Ratio] 34.2 kg/m2 Dr. Dago Emery Work Phone: [facility] 11-04-2022 14:40-0400 Body temperature 98 [degF] Dr. Dago Emery Work Phone: [facility] 11-04-2022 14:40-0400 Body weight 93.[address] Dago Emery Work Phone: [facility] 11-04-2022 14:40-0400 Diastolic blood pressure 74 mm[Hg] Dr. Dago Emrey Work Phone: [facility] 11-04-2022 14:40-0400 Heart rate 51 /min Dr. Dago Emery Work Phone: [facility] 11-04-2022 14:40-0400 Respiratory rate 16 /min Dr. Dago Emery Work Phone: [facility] 11-04-2022 14:40-0400 SaO2% (BldA) [Mass fraction] 98 % Dr. Dago Emery Work Phone: [facility] 11-04-2022 14:40-0400 Systolic blood pressure 140 mm[Hg] Dr. Dago Emery Work Phone: [facility] 10-14-2022 12:50-0400 Body temperature 97.6 [degF] Dr. Dago Emery Work Phone: [facility] 10-14-2022 12:50-0400 Diastolic blood pressure 47 mm[Hg] Dr. Dago Emery Work Phone: [facility] 10-14-2022 12:50-0400 Heart rate 70 /min Dr. Dago Emery Work Phone: [facility] 10-14-2022 12:50-0400 Respiratory rate 18 /min Dr. Dago Emery Work Phone: [facility] 10-14-2022 12:50-0400 SaO2% (BldA) [Mass fraction] 94 % Dr. Dago Emery Work Phone: 9(088)717-005346 [place] [address] 10-14-2022 12:50-0400 Systolic blood pressure 141 mm[Hg] Dr. Dago Emery Work Phone: 4(094)099-590146 [place] [address] 10-13-2022 09:00-0400 Body mass index (BMI) [Ratio] 34.4 kg/m2 Dr. Dago Emery Work Phone: 8(409)597-345846 [place] [address] 10-13-2022 09:00-0400 Body weight 93.[address] Dago Emery Work Phone: 9(617)884-559756 [place] [address] 08-05-2022 13:49-0400 Body height 165.[address] Dago Emery Work Phone: 4(644)639-840156 [place] [address] 08-05-2022 13:49-0400 Body mass index (BMI) [Ratio] 34.2 kg/m2 Dr. Dago Emery Work Phone: 4(850)571-709756 [place] [address] 08-05-2022 13:49-0400 Body temperature 98.3 [degF] Dr. Dago Emery Work Phone: 9(175)300-479956 [place] [address] 08-05-2022 13:49-0400 Body weight 93.[address] Dago Emery Work Phone: 8(645)738-177746 [place] [address] 08-05-2022 13:49-0400 Diastolic blood pressure 83 mm[Hg] Dr. Dago Emery Work Phone: 2(941)948-734946 [place] [address] 08-05-2022 13:49-0400 Heart rate 45 /min Dr. Dago Emery Work Phone: 6(406)[phone] [place] [address] 08-05-2022 13:49-0400 Respiratory rate 18 /min Dr. Dago Emery Work Phone: 1(480)747-982646 [place] [address] 08-05-2022 13:49-0400 SaO2% (BldA) [Mass fraction] 99 % Dr. Dago Emery Work Phone: [facility] 08-05-2022 13:49-0400 Systolic blood pressure 137 mm[Hg] Dr. Dago Emery Work Phone: [facility] 05-06-2022 14:19-0500 Body height 165.[address] Dago Emery Work Phone: [facility] 05-06-2022 14:19-0500 Body mass index (BMI) [Ratio] 35.5 kg/m2 Dr. Dago Emery Work Phone: 4(687)715-452046 [place] [address] 05-06-2022 14:19-0500 Body temperature 98.3 [degF] Dr. Dago Emery Work Phone: 0(730)[phone] [place] [address] 05-06-2022 14:19-0500 Body weight 96.[address] Dago Emery Work Phone: [facility] 05-06-2022 14:19-0500 Diastolic blood pressure 72 mm[Hg] Dr. Dago Emery Work Phone: 9(092)872-152846 [place] [address] 05-06-2022 14:19-0500 Heart rate 46 /min Dr. Dago Emery Work Phone: [facility] 05-06-2022 14:19-0500 Respiratory rate 18 /min Dr. Dago Emery Work Phone: [facility] 05-06-2022 14:19-0500 SaO2% (BldA) [Mass fraction] 98 % Dr. Dago Emery Work Phone: [facility] 05-06-2022 14:19-0500 Systolic blood pressure 121 mm[Hg] Dr. Dago Emery Work Phone: [facility] 04-12-2022 08:38-0500 Diastolic blood pressure 94 mm[Hg] Dr. Dago Emery Work Phone: [facility] 04-12-2022 08:38-0500 Heart rate 60 /min Dr. Dago Emery Work Phone: [facility] 04-12-2022 08:38-0500 Respiratory rate 16 /min Dr. Dago Emery Work Phone: [facility] 04-12-2022 08:38-0500 SaO2% (BldA) [Mass fraction] 96 % Dr. Dago Emery Work Phone: [facility] 04-12-2022 08:38-0500 Systolic blood pressure 178 mm[Hg] Dr. Dago Emery Work Phone: [facility] 04-12-2022 08:33-0500 Body height 165.[address] Dago Emery Work Phone: [facility] 04-12-2022 08:33-0500 Body mass index (BMI) [Ratio] 36.3 kg/m2 Dr. Dago Emery Work Phone: [facility] 04-12-2022 08:33-0500 Body temperature 98.5 [degF] Dr. Dago Emery Work Phone: [facility] 04-12-2022 08:33-0500 Body weight 99.[address] Dago Emery Work Phone: [facility] 02-04-2022 14:20-0500 Body mass index (BMI) [Ratio] 34.4 kg/m2 Dr. Dago Emery Work Phone: [facility] 02-04-2022 14:20-0500 Body temperature 97.8 [degF] Dr. Dago Emery Work Phone: [facility] 02-04-2022 14:20-0500 Body weight 93.[address] Dago Emery Work Phone: [facility] 02-04-2022 14:20-0500 Diastolic blood pressure 79 mm[Hg] Dr. Dago Emery Work Phone: [facility] 02-04-2022 14:20-0500 Heart rate 51 /min Dr. Dago Emery Work Phone: [facility] 02-04-2022 14:20-0500 Respiratory rate 16 /min Dr. Dago Emery Work Phone: [facility] 02-04-2022 14:20-0500 SaO2% (BldA) [Mass fraction] 97 % Dr. Dago Emery Work Phone: [facility] 02-04-2022 14:20-0500 Systolic blood pressure 132 mm[Hg] Dr. Dago Emery Work Phone: [facility] 11-04-2021 13:59-0400 Body height 165.[address] Dago Emery Work Phone: [facility] Work Phone: 11-04-2021 13:59-0400 Body mass index (BMI) [Ratio] 34.4 kg/m2 Dr. Dago Emery Work Phone: [facility] Work Phone: 11-04-2021 13:59-0400 Body temperature 97.4 [degF] Dr. Dago Emery Work Phone: [facility] Work Phone: 11-04-2021 13:59-0400 Body weight [address] Dago Emery Work Phone: [facility] Work Phone: 11-04-2021 13:59-0400 Diastolic blood pressure 80 mm[Hg] Dr. Dago Emery Work Phone: [facility] Work Phone: 11-04-2021 13:59-0400 Heart rate 51 /min Dr. Dago Emery Work Phone: [facility] Work Phone: 11-04-2021 13:59-0400 Respiratory rate 16 /min Dr. Dago Emery Work Phone: [facility] Work Phone: 11-04-2021 13:59-0400 SaO2% (BldA) [Mass fraction] 97 % Dr. Dago Eemry Work Phone: [facility] Work Phone: 11-04-2021 13:59-0400 Systolic blood pressure 130 mm[Hg] Dr. Dago Emery Work Phone: [facility] Work Phone: 04-25-2020 14:46-0500 Body mass index (BMI) [Ratio] 37.8 kg/m2 Dr. Dago Emery Work Phone: [facility] 04-25-2020 14:46-0500 Body temperature 98 [degF] Dr. Dago Emery Work Phone: [facility] 04-25-2020 14:46-0500 Body weight 99.[address] Dago Emery Work Phone: [facility] 04-25-2020 14:46-0500 Diastolic blood pressure 87 mm[Hg] Dr. Dago Emery Work Phone: [facility] 04-25-2020 14:46-0500 Heart rate 54 /min Dr. Dago Emery Work Phone: [facility] 04-25-2020 14:46-0500 Respiratory rate 17 /min Dr. Dago Emery Work Phone: [facility] 04-25-2020 14:46-0500 SaO2% (BldA) [Mass fraction] 97 % Dr. Dago Emery Work Phone: [facility] 04-25-2020 14:46-0500 Systolic blood pressure 155 mm[Hg] Dr. Dago Emery Work Phone: [facility] Encounters Encounter Date Encounter Type Care Provider Facility Start: 10-20-2024 Non-patient / Non-visit Dr. Sofia giang MD -[facility] Work Phone: Start: 10-18-2024 End: 10-21-2024 Evaluation and management of inpatient [facility] Facility:[facility] Start: 10-18-2024 Non-patient / Non-visit Dr. Joselin Valente MD -[facility] Work Phone: Start: 10-17-2024 Non-patient / Non-visit Dr. Joselin Valente MD -[facility] Work Phone: Start: 10-16-2024 Non-patient / Non-visit Dr. Og UGALDE -[facility] Work Phone: Start: 10-16-2024 ambulatory Saulo Bullock Fac ility:[facility] Start: 10-11-[address] Cira Pate MD -[facility] Start: 10-11-2024 End: 10-11-2024 Patient encounter procedure Carolyn Ruvalcaba NP- -[facility] Work Phone: Start: 10-11-2024 End: 10-11-[address] Dago Emery MD Work Phone: [facility] Start: 09-20-2024 End: 09-20-[address] Omero Armas MD -[facility] Work Phone: Start: 09-20-2024 End: 09-20-[address] Omero Armas MD [facility] Start: 09-20-2024 End: 09-20-[address] Dago Emery MD Work Phone: [facility] Start: 08-08-2024 Encounter for other preprocedural examination [facility] Start: 08-01-2024 End: 08-01-2024 Non-patient / Non-visit Dr. Omero Armas MD -[facility] Work Phone: Start: 08-01-2024 End: 08-01-[address] Dago Emery MD Work Phone: [facility] Work Phone: Start: 08-01-2024 End: 08-01-[address] Dago Emery MD -Pulmonary Services/Neurology Work Phone: Start: 07-31-2024 End: 08-01-[address] Dago Emery MD Work Phone: [facility] Work Phone: Start: 07-31-2024 End: 07-31-[address] Dago Emery MD -[facility] Start: 07-31-2024 End: 07-31-2024 ambulatory Dago Chi Rupert Facility:[facility] Start: 07-10-[address] Cira Pate MD -[facility] Start: 07-10-2024 End: 07-10-2024 Patient encounter procedure Carolyn Ruvalcaba NP-Jack -[facility] Work Phone: Start: 07-10-2024 End: 07-10-2024 ambulatory Dago Chi Urpert Facility:[facility] [place] [place] Start: 02-22-2024 End: 02-22-2024 ambulatory [facility]ago [facility] Facility:[facility] Start: 01-31-2024 End: 01-31-2024 ambulatory Dago Chi Rupert Facility:[facility] Start: 11-09-2023 End: 11-09-2023 ambulatory Dago Chi Rupert Facility:[facility] Start: 01-25-2023 End: 01-25-[address] Dago Emery Work Phone: [facility] Work Phone: Start: 01-25-2023 End: 01-25-[address] Dago Emery Work Phone: [facility]-Laboratory, Phy Office 3rd Flr Start: 11-04-[address] Dago hays Work Phone: [facility] Start: 11-04-2022 End: 11-04-[address] Dago Eemry Work Phone: [facility] Work Phone: Start: 09-25-2022 End: 10-14-2022 Evaluation and management of inpatient Dr. Dago Emery Work Phone: [facility]-Transitional Care Unit Start: 09-04-2022 End: 09-04-[address] Dago Emery Work Phone: [facility] Work Phone: Start: 09-04-2022 End: 09-04-[address] Dago Emery Work Phone: [facility] Start: 08-05-2022 End: 08-05-[address] Dago Emery Work Phone: [facility] Start: 08-05-[address] Dago hays Work Phone: [facility] Start: 07-20-2022 End: 07-20-[address] Dago Emery Work Phone: [facility] Work Phone: Start: 07-20-2022 End: 07-20-[address] Dago Emery Work Phone: [facility]-Laboratory, Phy Office 3rd Wvr Start: 05-06-[address] Dago hays Work Phone: [facility] Start: 05-06-2022 End: 05-06-[address] Dago Emery Work Phone: [facility] Start: 04-12-2022 End: 04-12-2022 Emergency department patient visit Dr. Dago Emery Work Phone: [facility]-Emergency Department Start: 02-04-[address] Dago hays Work Phone: [facility] Start: 02-04-2022 End: 02-04-[address] Dago Emery Work Phone: [facility] Start: 01-19-2022 End: 01-19-[address] Dago Emery Work Phone: [facility] Work Phone: Start: 01-19-2022 End: 01-19-[address] Dago Emery Work Phone: [facility]-Laboratory, Phy Office 3rd Flr Start: 11-04-[address] Dago hays Work Phone: [facility] Start: 11-04-2021 End: 11-04-[address] Dago Emery Work Phone: [facility] Procedures Date Procedure Procedure Detail [...] Activity Detail Author Start: 10-21-2024 Patient discharge [facility] Start: 10-18-2024 Admission procedure [facility] Start: 10-18-2024 Care regimes management [facility] Start: 10-17-2024 [facility] Start: 10-16-2024 Application of intermittent pneumatic compression device [facility] Start: 10-16-2024 Following clinical pathway protocol [facility] Start: 10-16-2024 Provision of overbed trapeze [facility] Start: 10-16-2024 Ambulation therapy management [facility] Start: 10-16-2024 Assessment of risk of venous thromboembolism [facility] Start: 10-16-2024 Catheterization of vein [facility] Start: 10-16-2024 Exercises [facility] Start: 10-16-2024 Neurovascular assessment [facility] Start: 10-16-2024 Procedure discontinued [facility] Start: 10-16-2024 Recommendation to continue with treatment [facility] Start: 10-16-2024 Referral to occupational therapist [facility] Start: 10-16-2024 Referral to service [facility] Start: 10-16-2024 Vital signs measurements [facility] Start: 10-16-2024 End: 10-16-2024 [facility] Start: 10-16-2024 Application of device [facility] Start: 10-16-2024 Application of elastic bandage [facility] Start: 10-16-2024 Introduction of urinary catheter [facility] Start: 10-16-2024 Measuring intake and output [facility] Start: 10-16-2024 Patient education [facility] Start: 10-16-2024 Provision of activity privileges [facility] Start: 10-16-2024 Wound care [facility] Start: 10-16-2024 Admission procedure [facility] Start: 10-16-2024 Consultation [facility] Start: 10-11-2024 CBC W Auto Differential panel - Blood [facility] Start: 10-11-2024 [facility] Start: 07-31-2024 Electrocardiographic procedure [facility] Start: 10-14-2022 Patient discharge [facility] Start: 10-13-2022 Development of care plan [facility] Start: 10-09-2022 Referral to service [facility] Start: 10-09-2022 [facility] Start: 10-04-2022 [facility] Start: 10-04-2022 [facility] Start: 09-26-2022 Developing a treatment plan [facility] Start: 09-26-2022 Development of care plan [facility] Start: 09-26-2022 Application of device [facility] Start: 09-25-2022 Wound care [facility] Start: 09-25-2022 Admission procedure [facility] Start: 09-25-2022 Measuring intake and output [facility] Start: 09-25-2022 Patient referral to dietitian [facility] Start: 09-25-2022 Referral to occupational therapist [facility] Start: 09-25-2022 Referral to service [facility] Start: 09-25-2022 Vital signs measurements [facility] Start: 09-25-2022 End: 09-25-2022 [facility] Start: 07-21-2018 [facility] Basic metabolic 2008 panel with ionized calcium - Serum or Plasma [facility] CBC W Auto Different ial panel - Blood [facility] Work Phone: CBC W Auto Different ial panel - Blood [facility] CBC W Auto Different ial panel - Blood [facility] CBC W Auto Different ial panel - Blood [facility] CBC W Auto Different ial panel - Blood [facility] CBC W Auto Different ial panel - Blood [facility] CBC W Auto Different ial panel - Blood [facility] metabo lic 1999 panel - Serum or Plasma [facility] lic 1999 panel - Serum or Plasma [facility] Patient Education ED Meniscal In jury Knee Poss [facility] Work Phone: Patient referral [facility] Work Phone: [facility] Immunizations Immunization Date Immunization Notes Care Provider Fa [facility] 11-23-2020 Covid (Moderna) Dr. Dago Emery Work Phone: [facility] 10-26-2020 Covid (Moderna) Dr. Dago Emery Work Phone: [facility] 01-16-2020 influenza, injectabl e, quadrivalent, preservative free Dr. Dago Emery Work Phone: [facility] 11-23-[address] Dago Emery Work Phone: [facility] 09-07-[address] Dago Emery Work Phone: [facility] 01-12-2019 influenza, injectabl e, quadrivalent, preservative free Dr. Dago Emery Work Phone: [facility] 12-20-2008 pneumococcal vaccine , unspecified formulation Dr. Dago Emery Work Phone: [facility] 07-21-2008 pneumococcal polysaccharide vaccine, [address] Dago Emery Work Phone: [facility] Payers Date Payer Category Payer Self-pay [id number] 2018 Medicare [id number] 2018 Private Health Insurance [id number] Unknown [facility] PACKAGE PLAN [id number] Unknown [id number] Unknown [id number] Unknown [id number] Unknown [id number] Unknown [id number] [id number] Unknown [id number] Unknown [id number] [id number] Unknown [id number] Unknown [id number] [id number] Unknown [id number] [id number] Unknown [id number] Unknown [id number] Unknown [id number] Unknown [id number] Unknown [id number] [id number] Social History Date Type Detail Facility Start: 07-24-2020 End: 09-25-2022 Tobacco smoking status NMIS Unknown if ever smoked [facility] Start: 04-16-2014 None [facility] Start: 12-02-2018 Non-smoker [facility] Start: 1945 Sex Assigned At Female [facility] Start: 07-31-2024 End: 10-04-2024 Tobacco smoking status NHIS Never smoked tobacco (finding) [facility] Not [facility] Medical Equipment Procedure Code Equipment Code Equipment Origin al Text Equipment Identifier Dates ([id number]) Metal-backed pat jason prosthesis ()[id number] [id number] FDA Start: 09-23-2022 ([id number]) Coated knee femu r prosthesis ()[id number] [id number])[id number] FDA Start: 09-23-2022 ([id number]) Coated knee tibi a prosthesis ()[id number] [id number] FDA Start: 09-23-2022 ([id number]) Tibial insert ()[id number]( [id number] FDA Start: 09-23-2022 ([id number]) Uncoated knee fe mur prosthesis, metallic ()[id number] [id number] FDA Start: 10-16-2024 Tibial insert ()[id number] [id number] FDA Start: 10-16-2024 ([id number]) Polyethylene pat jason prosthesis ()[id number] [id number] FDA Start: 10-16-2024 (262625422) Uncoated knee ti jitendra prosthesis, metallic ()[id number] [id number] FDA Start: 10-16-2024 (194042802) Knee femur stem prosthesis ()[id number] [id number] FDA Start: 10-16-2024 (743853900) Knee femur stem prosthesis ()[id number] [id number] FDA Start: 10-16-2024 (531778132) Polymer orthopae dic cement restrictor, non-bioabsorbable, sterile ()[id number] 17)[id number])[id number] FDA Start: 10-16-2024 Orthopaedic ceme nt, non-antimicrobial ()[id number] [id number] FDA Start: 10-16-2024 Goals Date Patient Goal Desired Activity /State Functional Status Date Assessment Result Facility 10-21-2024 Functional status Stand and pivot [facility] Work Phone: 10-14-2022 Functional status Activity Ability Indepe ndent [facility] Work Phone: 10-13-2022 Functional status Ambulates;Up ad aldo [facility] Work Phone: 10-12-2022 Functional status Tolerates Activity Well [facility] Work Phone: Mental Status Date Assessment Result Facility 10-21-2024 Cognitive function Voice/Name [facility] Work Phone: 10-14-2022 Cognitive function Voice/Name [facility] Work Phone: 10-07-2022 Cognitive function Appropriate [facility] Work Phone: Clinical Notes 07-10-2024 to 10-21-2024 Note Date & Type Note Facility 10-21-2024 Discharge summary Note Date/Time October 21, 2024 11:05am [facility] Medical Records Department [address] [place] [id number] Discharge Summary 10/21/24 [place] MR#: [id number] Acct: [id number] Name: BERNICE JUAN Rep #:[id number] : 1945 79 From: Nela CORNELIUS PCP: Dr. Dago Emery MD Status:ADM I N [place] [facility] [place] Providers Date of Admission: 10/18/24 Primary Care Physician: Dr. Dago Emery MD Consultations 10/16/24 14:53 Consult: Hospitalist Routine Consulting Provider: [facility] Reason for Consult: post op med management [...] feel patient is ready for discharge to fpc facility. Patient states that she feels much [...] % (Auto) 54.7, Lymph % (Auto) 27.2, [place] % (Auto) 15.2 H, Eos % (Auto) [...] Profile (BMP) (Routine) Timeframe: 1 Week Facility: [facility] - Location: Laboratory Ordered By: Nela Casanova CBC W/Diff, Automated (Routine) Timeframe: 1 Week Facility: [facility] - Location: Laboratory Ordered By: Nela Casanova Referrals / Follow Up: Dago Emery Chi, MD [Primary Care Provider] - Disposition Disposition (needs filled in before D/C Order can be placed): Inpatient Rehab Unit/Facility 10/21/24 1105 <Electronically signed by Nela CORNELIUS> Cosigner Signature (if applicable): CC: ADRYAN Holland; Dr. Dago Emery MD~ Signed [facility] Work Phone: 1(398) 192-425108-02-2025 Discharge summary Author Nela Casanova [facility] Note Date/Time October 21, 2024 10: 59am [facility] Medical Records Department [address] [place] [address] Transfer to [facility] MR#: [id number] Acct: [id number] Name: BERNICE JUAN Rep #:[id number] : 1945 79 From: Nela CORNELIUS PCP: Dr. Dago Emery MD Status:ADM I N Certification of patient admission REQUIRED AT TIME OF ADMISSION. I CERTIFY THAT POST-HOSPITAL ECF SERVICES ARE REQUIRED TO BE GIVEN ON AN IN-PATIENT BASIS BECAUSE OF THE ABOVE NAMED PATIENT'S NEED FOR LONGTERM CARE ON A CONTINUING BASIS FOR THE CONDITION(S) FOR WHICH HE/SHE WAS RECEIVING IN-PATIENT HOSPITAL SERVICES PRIOR TO HIS/HER TRANSFER TO [facility]. 10/21/24 1059<Electronically signed by Nela CORNELIUS> Diet [...] feel patient is ready for discharge to fpc facility. Patient states that she feels much [...] Profile (BMP) (Routine) Timeframe: 1 Week Facility: [facility] - Location: Laboratory Ordered By: Nela Casanova CBC W/Diff, Automated (Routine) Timeframe: 1 Week Facility: [facility] - Location: Laboratory Ordered By: Nela Casanova Referrals / Follow Up: Dago Emery Chi, MD [Primary Care Provider] - Disposition Disposition (needs filled in before D/C Order can be placed): Inpatient Rehab Unit/Facility 10/21/24 1059 <Electronically signed by Nela CORNELIUS> Cosigner Signature (if applicable): CC: Dr. Juliane Villa MD; Dr. Sofia Carvajal MD; Dr. Dago Emery MD ~ [facility] Work Phone: 1(264) 661-866808-02-2025 Progress note Author Nela Casanova [facility] Note Date/Time October 21, 2024 10: 33am [facility] Medical Records Department [address] [place] [address] Progress Note - Orthopedic 10/21/24 1022 MR#: [id number] Acct: [id number] Name: BERNICE JUAN Rep #:[id number] : 1945 79 From: Nela CORNELIUS PCP: Dr. Dago Emery MD Status:ADM I N Location: MS3 OP195-5 Subjective Subjective Patient is sitting comfortably in [...] % (Auto) 54.7, Lymph % (Auto) 27.2, [place] % (Auto) 15.2 H, Eos % (Auto) [...] feel patient is ready for discharge to fpc facility. Patient states that she feels much [...] Cosigner Signature (if applicable): CC: ~ Signed [facility] Work Phone: 1(496) 331-461508-02-2025 Discharge summary [facility] Medical Records Department [address] [place] [address] Discharge Summary 10/21/24 1100 MR#: [id number] Acct: [id number] Name: BERNICE JUAN Rep #:[id number] : 1945 79 From: Nela CORNELIUS PCP: Dr. Dago Emery MD Status:ADM I N [facility] Providers Date of Admission: 10/18/24 Primary Care Physician: Dr. Dago Emery MD Consultations 10/16/24 14:53 Consult: Hospitalist Routine Consulting Provider: [facility] Reason for Consult: post op med management [...] feel patient is ready for discharge to fpc facility.Patient states that she feels much more [...] % (Auto) 54.7, Lymph % (Auto) 27.2, [place] % (Auto) 15.2 H, Eos % (Auto) [...] Profile (BMP) (Routine) Timeframe: 1 Week Facility: [facility] - Location: Laboratory Ordered By: Nela Casanova CBC W/Diff, Automated (Routine) Timeframe: 1 Week Facility: [facility] - Location: Laboratory Ordered By: Nela Casanova Referrals / Follow Up: Dago Emery Chi, MD [Primary Care Provider] - Disposition Disposition (needs filled in before D/C Order can be placed): Inpatient Rehab Unit/Facility 10/21/24 1105 Cosigner Signature (if applicable): CC: ADRYAN Holland; Dr. Dago Emery MD~ Signed [facility]08-02-2025 Discharge summary [facility] Medical Records Department [address] [place] [address] Transfer to Extended Care MR#: [id number] Acct: [id number] Name: BERNICE JUAN Rep #:[id number] : 1945 79 From: Nela CORNELIUS PCP: Dr. Dago Emery MD Status:ADM I N Certification of patient admission REQUIRED AT TIME OF ADMISSION. I CERTIFY THAT POST-HOSPITAL ECF SERVICES ARE REQUIRED TO BE GIVEN ON AN IN-PATIENT BASIS BECAUSE OF THE ABOVE NAMED PATIENT'S NEED FOR LONGTERM CARE ON A CONTINUING BASIS FOR THE [...] feel patient is ready for discharge to fpc facility.Patient states that she feels much more [...] Profile (BMP) (Routine) Timeframe: 1 Week Facility: [facility] - Location: Laboratory Ordered By: Nela Casanova CBC W/Diff, Automated (Routine) Timeframe: 1 Week Facility: [facility] - Location: Laboratory Ordered By: Nela Casanova Referrals / Follow Up: Dago Emery Chi, MD [Primary Care Provider] - Disposition Disposition (needs filled in before D/C Order can be placed): Inpatient Rehab Unit/Facility 10/21/24 1052 Cosigner Signature (if applicable): CC: Dr. Juliane Villa MD; Dr. Sofia Carvajal MD; Dr. Dago Emery MD ~ [facility]08-02-2025 Progress note [facility] Medical Records Department [address] [place] [address] Progress Note - Orthopedic 10/21/24 1022 MR#: [id number] Acct: [id number] Name: BERNICE JUAN Rep #:[id number] : 1945 79 From: Nela CORNELIUS PCP: Dr. Dago Emery MD Status:ADM I N Location: MS3 GW802-4 Subjective Subjective Patient is sitting comfortably in [...] % (Auto) 54.7, Lymph % (Auto) 27.2, [place] % (Auto) 15.2 H, Eos % (Auto) [...] feel patient is ready for discharge to fpc facility.Patient states that she feels much more [...] Cosigner Signature (if applicable): CC: ~ Signed [facility]08-01-2025 Progress note Author Sofia Carvajal [facility] Note Date/Time October 20, 2024 4:4 6pm [facility] Medical Records Department [address] [place] [address] Progress Note - Hospitalist 10/20/24 1640 MR#: [id number] Acct: [id number] Name: BERNICE JUAN Rep #:[id number] : 1945 79 From: Sofia Carvajal MD PCP: Dr. Dago Emery MD Status:ADM I N Location: [place] 444591-1 Subjective Subjective Initially this morning patient complaining [...] per Ortho Charges/Coding Visit Charges Inpatient E&M: 19176 Subs Hosp L1 10/20/24 6740 <Electronically signed by Sofia Carvajal MD> Cosigner Signature (if applicable): CC: ~ Signed [facility] Work Phone: 1(368) 298-157308-01-2025 Progress note [facility] Medical Records Department [address] [place] [address] Progress Note - Hospitalist 10/20/24 1640 MR#: [id number] Acct: [id number] Name: BERNICE JUAN Rep #:[id number] : 1945 79 From: Sofia Carvajal MD PCP: Dr. Dago Emery MD Status:ADM I N Location: MS3 FX654-2 Subjective Subjective Initially this morning patient complaining [...] per Ortho Charges/Coding Visit Charges Inpatient E&M: 15405 Subs Hosp L1 10/20/24 1646 Cosigner Signature (if applicable): CC: ~ Signed [facility]08-01-2025 Progress note Author Nela Casanova [facility] Note Date/Time October 20, 2024 11: 56am [facility] Medical Records Department [address] [place] [address] Progress Note - Orthopedic 10/20/24 1144 MR#: [id number] Acct: [id number] Name: BERNICE JUAN Rep #:[id number] : 1945 79 From: Nela CORNELIUS PCP: Dr. Dago Emery MD Status:ADM I N Location: [place] [address] Subjective Subjective Patient is sitting comfortably in [...] feel patient is ready for discharge to fpc facility at this time. Due to the [...] Cosigner Signature (if applicable): CC: ~ Signed [facility] Work Phone: 1(656) 516-537308-01-2025 Progress note [facility] Medical Records Department [address] [place] [address] Progress Note - Orthopedic 10/20/24 1144 MR#: [id number] Acct: [id number] Name: BERNICE JUAN Rep #:[id number] : 1945 79 From: Nela CORNELIUS PCP: Dr. Dago Emery MD Status:ADM I N Location: [place] [address] Subjective Subjective Patient is sitting comfortably in [...] feel patient is ready for discharge to fpc facility at this time. Due to the [...] Cosigner Signature (if applicable): CC: ~ Signed [facility]07-31-2025 Progress note Author Landen Hernández [facility] Note Date/Time October 19, 2024 1:45 pm [facility] Medical Records Department [address] [place] [address] Progress Note - Orthopedic 10/19/24 1306 MR#: [id number] Acct: [id number] Name: BERNICE JUAN Rep #:[id number] : 1945 79 From: Landen CORNELIUS PA-C PCP: Dr. Dago Emery MD Status:ADM I N Location: MS3 WP330-1 Subjective Subjective The patient was sitting in [...] (Auto) 66.7, Lymph % (Auto) 14.4 L, [place] % (Auto) 17.1 H, Eos % (Auto) [...] intramedullary nailing of the tibia. Reading Location: [facility] Physical Exam Narrative Vital signs stable and [...] feel patient is ready for discharge to fpc facility. Due to the acute distal tibia [...] exist. 10/19/24 1345 <Electronically signed by Landen CORNELIUS PA-C> Cosigner Signature (if applicable): CC: ~ Signed [facility] Work Phone: 1(724) 770-462107-31-2025 Progress note [facility] Medical Records Department [address] [place] [address] Progress Note - Orthopedic 10/19/24 1306 MR#: [id number] Acct: [id number] Name: BERNICE JUAN Rep #:[id number] : 1945 79 From: Landen CORNELIUS PA-C PCP: Dr. Dago Emery MD Status:ADM I N Location: [address] Subjective Subjective The patient was sitting [...] (Auto) 66.7, Lymph % (Auto) 14.4 L, [place] % (Auto) 17.1 H, Eos % (Auto) [...] intramedullary nailing of the tibia. Reading Location: [id number] Physical Exam Narrative Vital signs stable and [...] feel patient is ready for discharge to fpc facility. Due to the acute distal tibia [...] Cosigner Signature (if applicable): CC: ~ Signed [facility]07-30-2025 Radiology Diagnostic study note [facility] Imaging Services [address] [place] [address] Knee 1 or 2 Views MR#: [id number] Acct: [id number] Name: BERNICE JUAN Rep #: [id number] : 1945 F 79 From: Antonio Caballero MD PCP: Dr. Dago Emery MD Status: ADM I N Study:Knee 1 or 2 Views Date of Exam: Exam# [id number] Ordering Dr: Grayson Rodriguez MD PROCEDURE: KNEE [...] intramedullary nailing of the tibia. Reading Location: [id number] CC: Dr. Geo Rodriguez MD; Dr. Dago Emery MD ~ Heavy Coil Winder: Signed [facility]07-30-2025 Progress note Author See Valente [facility] Note Date/Time October 18, 2024 10:2 8am [facility] Medical Records Department [address] [place] [address] Progress Note - Hospitalist 10/18/24 1015 MR#: [id number] Acct: [id number] Name: BERNICE JUAN Rep #:[id number] : 1945 79 From: See ko MD PCP: Dr. Dago Emery MD Status:ADM I NO Location: [place] [address] Subjective Subjective Had a transient episode of [...] 73.5 H, Lymph % (Auto) 11.1 L, [place] % (Auto) 14.6 H, Eos % (Auto) [...] extension appreciated. Congruent ankle mortise. Reading Location: [facility] Lower Extremity CT 10/17/24 21:42 IMPRESSION: Acute distal tibial meta diaphyseal junction fracture, no extension to the articular surface. No acute distal fibular fracture associated. No dislocation. Reading Location: [place] [address] Physical Exam Narrative General: Alert, Oriented x3, [...] per Ortho Charges/Coding Visit Charges Inpatient E&M: 16914 Subs Hosp L2 10/18/24 1028 <Electronically signed by See Valente MD> Cosigner Signature (if applicable): CC: ~ Signed [facility] Work Phone: 1(763) 217-153907-30-2025 Progress note Author Nela Casanova [facility] Note Date/Time October 18, 2024 8:38 am [facility] Medical Records Department [address] [place] [address] Progress Note - Orthopedic 10/18/2426 MR#: [id number] Acct: [id number] Name: BERNICE JUAN Rep #:[id number] : 1945 79 From: Nela CORNELIUS PCP: Dr. Dago Emery MD Status:ADM I NO Location: MN3 YX851-6 Subjective Subjective Patient is anxious and down [...] 73.5 H, Lymph % (Auto) 11.1 L, [place] % (Auto) 14.6 H, Eos % (Auto) [...] extension appreciated. Congruent ankle mortise. Reading Location: [facility] Lower Extremity CT 10/17/24 21:42 IMPRESSION: Acute distal tibial meta diaphyseal junction fracture, no extension to the articular surface. No acute distal fibular fracture associated. No dislocation. Reading [facility] Physical Exam Narrative JUDE hose in place [...] Cosigner Signature (if applicable): CC: ~ Signed [facility] Work Phone: 1(499) 319-122807-30-2025 Progress note [facility] Medical Records Department [address] [place] [address] Progress Note - Hospitalist 10/18/24 1015 MR#: [id number] Acct: [id number] Name: BERNICE JUAN Rep #:[id number] : 1945 79 From: See ko MD PCP: Dr. Dago Emery MD Status:ADM I NO Location: [place] [address] Subjective Subjective Had a transient episode of [...] 73.5 H, Lymph % (Auto) 11.1 L, [place] % (Auto) 14.6 H, Eos % (Auto) [...] extension appreciated. Congruent ankle mortise. Reading Location: [facility] Lower Extremity CT 10/17/24 21:42 IMPRESSION: Acute distal tibial meta diaphyseal junction fracture, no extension to the articular surface. No acute distal fibular fracture associated. No dislocation. Reading Location: [place] [address] Physical Exam Narrative General: Alert, Oriented x3, [...] per Ortho Charges/Coding Visit Charges Inpatient E&M: 86015 Subs Hosp L2 10/18/24 1028 Cosigner Signature (if applicable): CC: ~ Signed [facility]07-30-2025 Progress note [facility] Medical Records Department [address] [place] [address] Progress Note - Orthopedic 10/18/24825 MR#: [id number] Acct: [id number] Name: BERNICE JUAN Rep #:[id number] : 1945 79 From: Nela CORNELIUS PCP: Dr. Dago Emery MD Status:ADM I NO Location: MN3 LY645-5 Subjective Subjective Patient is anxious and down [...] 73.5 H, Lymph % (Auto) 11.1 L, [place] % (Auto) 14.6 H, Eos % (Auto) [...] extension appreciated. Congruent ankle mortise. Reading Location: [id number] Lower Extremity CT 10/17/24 21:42 IMPRESSION: Acute distal tibial meta diaphyseal junction fracture, no extension to the articular surface. No acute distal fibular fracture associated. No dislocation. Reading Location: [place] [address] Physical Exam Narrative JUDE hose in place [...] Cosigner Signature (if applicable): CC: ~ Signed [facility]07-29-2025 Radiology Diagnostic study note [facility] Imaging Services [address] [place] [address] Extremity Lower without Contra MR#: [id number] Acct: [id number] Name: BERNICE JUAN Rep #: [id number] : 1945 F 79 From: Saida Osman MD PCP: Dr. Dago Eemry MD Status: ADM I NO Study:Extremity Lower without Contra Date of Exam: 10/17/24 Exam# [id number] Ordering Dr: Bharathi Casanova PROCEDURE: EXTREMITY LOWER [...] fibular fracture associated. No dislocation. Reading Location: [place] [address] CC: ADRYAN Holland; Dr. Dago Emery MD ~ Heavy Coil Winder: Signed [facility]07-29-2025 Radiology Diagnostic study note [facility] Imaging Services [address] [place] [address]331 Ankle min 3 Views MR#: [id number] Acct: [id number] Name: BERNICE JUAN Rep #: [id number] : 1945 F 79 From: Yoshi Montes MD PCP: Dr. Dago Emery MD Status: ADM I NO Study:Ankle min 3 Views Date of Exam: Exam# [id number] Ordering Dr: Bharathi Casanova PROCEDURE: LEFT ANKLE [...] extension appreciated. Congruent ankle mortise. Reading Location: [id number] CC: ADRYAN Holland; Dr. Dago Emery MD ~ Heavy Coil Winder: Signed [facility]07-29-2025 Progress note Author Nela Casanova [facility] Note Date/Time October 17, 2024 4:03 pm [facility] Medical Records Department [address] [place] [address] Progress Note - Orthopedic 10/17/24 1554 MR#: [id number] Acct: [id number] Name: BERNICE JUAN Rep #:[id number] : 1945 79 From: Nela CORNELIUS PCP: Dr. Dago Emery MD Status:ADM I NO Location: [place] [address] Subjective Subjective Patient appears to be comfortable [...] hardware and expected postop changes. Reading Location: [facility] Physical Exam Narrative JUDE hose in place [...] we will plan to discharge patient to [facility]. Patientwas educated she can continue [...] Cosigner Signature (if applicable): CC: ~ Signed [facility] Work Phone: 1(503) 317-325007-29-2025 Progress note [facility] Medical Records Department [address] [place] [address] Progress Note - Orthopedic 10/17/24 1554 MR#: [id number] Acct: [id number] Name: BERNICE JUAN Rep #:[id number] : 1945 79 From: Nela CORNELIUS PCP: Dr. Dago Emery MD Status:ADM I NO Location: MN3 IJ867-0 Subjective Subjective Patient appears to be comfortable [...] hardware and expected postop changes. Reading Location: [facility] Physical Exam Narrative JUDE hose in [...] we will plan to discharge patient to [facility]. Patientwas educated she can continue to take her Zofran as needed for nausea and vomiting. Patient will need to get physical therapy done in the TCU. Patient does have 2- week follow-up visit scheduled to do a wound check. Patient was encouraged to call with any questions, concerns, new problems. 10/17/24 1603 Cosigner Signature (if applicable): CC: ~ Signed [facility]07-29-2025 Progress note Author See Valente [facility] Note Date/Time October 17, 2024 9:03 am [facility] Medical Records Department [address] [place] [address] Progress Note - Hospitalist 10/17/24 0857 MR#: [id number] Acct: [id number] Name: BERNICE JUAN Rep #:[id number] : 1945 79 From: See ko MD PCP: Dr. Dago Emery MD Status:ADM I N Location: MS3 TU988-3 Subjective Subjective Doing well, no issues overnight. [...] hardware and expected postop changes. Reading Location: [facility] Physical Exam Narrative General: Alert, Oriented [...] per Ortho Charges/Coding Visit Charges Inpatient E&M: 89550 Subs Hosp L2 10/17/24 0903 <Electronically signed by See Valente MD> Cosigner Signature (if applicable): CC: ~ Signed [facility] Work Phone: 1(637) 372-716207-29-2025 Progress note [facility] Medical Records Department [address] [place] [address] Progress Note - Hospitalist 10/17/2457 MR#: [id number] Acct: [id number] Name: BERNICE JUAN Rep #:[id number] : 1945 79 From: See ko MD PCP: Dr. Dago Emery MD Status:ADM I N Location: [place] [address] Subjective Subjective Doing well, no issues overnight. [...] hardware and expected postop changes. Reading Location: [facility] Physical Exam Narrative General: Alert, Oriented [...] per Ortho Charges/Coding Visit Charges Inpatient E&M: 98481 Subs Hosp L2 10/17/24 0903 Cosigner Signature (if applicable): CC: ~ Signed [facility]07-28-2025 Consult note Author Saulo Bullock [facility] Note Date/Time October 16, 2024 8:29 pm [facility] Medical Records Department [address] [place] [address] Consultation - Hospitalist 10/16/241953 MR#: [id number] Acct: [id number] Name: BERNICE JUAN Rep #:[id number] : 1945 79 From: Saulo desai DO PCP: Dr. Dago Emery MD Status:ADM I N Location: [place] [address] Assessment & Plan Assessment/Plan (1) Status post total left knee replacement: PLAN: Plan Patient is an 79-year-old female who presented [facility] on 10/16/2024 for planned left total knee [...] is a 79 F who presented to [facility] on 10/16/2024 for planned left knee replacement. [...] Denied any other pain or discomfort currently. [facility] Medical History Cardiology follow-up encounter Wears glasses [...] never substance use type: does not use justice/adventist: Worship seatbelt use: always do you feel safe [...] hardware and expected postop changes. Reading Location: [facility] Charges/Coding Visit Charges Inpatient E&M: 03183 Subs Hosp L2 10/16/242028 <Electronically signed by Saulo Bullock DO> Cosigner Signature (if applicable): CC: Dr. Geo Rodriguez MD; Dr. Dago Emery MD~ Signed [facility] Work Phone: 1(312) 246-990207-28-2025 Consult note Author Ki Cabrera [facility] Note Date/Time October 16, 2024 6:50 pm [facility] Medical Records Department [address] [place] [address] Anesthesia Postop Eval I 10/16/24 1849 MR#: [id number] Acct: [id number] Name: BERNICE JUAN Rep #:[id number] : 1945 79 From: Ki Cabrera MD PCP: Dr. Dago Emery MD Status:ADM I N Y Race: C Location: MN3 MS321 -1 Anesthesia: Postop Eval I Current [...] MD Cosigner Signature: Date CC: ~ Signed [facility] Work Phone: 1(498) 811-876207-28-2025 Consult note Author Ki wali [facility] Note Date/Time October 16, 2024 6:50 pm [facility] Medical Records Department [address] [place] [address] Anesthesia Postop Eval II 10/16/241849 MR#: [id number] Acct: [id number] Name: BERNICE JUAN Rep #:[id number] : 1945 79 From: Ki Cabrera MD PCP: Dr. Dago Emery MD Status:ADM I N Y Race: C Location: [place] [address] Anesthesia Postop Eval I Sum Postop Eval [...] MD Cosigner Signature: Date CC: ~ Signed [facility] Work Phone: 1(351) 287-237007-28-2025 Consult note [facility] Medical Records Department [address] [place] [address] Consultation - Hospitalist 10/16/241953 MR#: [id number] Acct: [id number] Name: BERNICE JUAN Rep #:[id number] : 1945 79 From: Saulo desai DO PCP: Dr. Dago Emery MD Status:ADM I N Location: [place] [address] Assessment & Plan Assessment/Plan (1) Status post total left knee replacement: PLAN: Plan Patient is an 79-year-old female who presented [facility] on 10/16/2024 for planned left total knee [...] is a 79 F who presented to [facility] on 10/16/2024 for planned left knee replacement. [...] Denied any other pain or discomfort currently. [facility] Medical History Cardiology follow-up encounter Wears glasses [...] never substance use type: does not use justice/adventist: Worship seatbelt use: always do you feel safe [...] hardware and expected postop changes. Reading Location: [id number] Charges/Coding Visit Charges Inpatient E&M: 69489 Subs Hosp L2 10/16/242028 Cosigner Signature (if applicable): CC: Dr. Geo Rodriguez MD; Dr. Dago Emery MD~ Signed [facility]07-28-2025 Radiology Diagnostic study note [facility] Imaging Services [address] [place] [address] Knee 1 or 2 Views MR#: [id number] Acct: [id number] Name: BERNICE JUAN Rep #: [id number] : 1945 F 79 From: Yoshi Montes MD PCP: Dr. Dago Emery MD Status: ADM I N Study:Knee 1 or 2 Views Date of Exam: Exam# [id number] Ordering Dr: Grayson Rodriguez MD PROCEDURE: LEFT [...] hardware and expected postop changes. Reading Location: [id number] CC: Dr. Geo Rodriguez MD; Dr. Dago Emery MD ~ Heavy Coil Winder: Signed [facility]07-28-2025 Consult note [facility] Medical Records Department [address] [place] [address] Anesthesia Postop Eval I 10/16/24 1849 MR#: [id number] Acct: [id number] Name: BERNICE JUAN Rep #:[id number] : 1945 79 From: Ki Cabrera MD PCP: Dr. Dago Emery MD Status:ADM I N Y Race: C Location: [facility]321 -1 Anesthesia: Postop Eval I Current Vital [...] MD Cosigner Signature: Date CC: ~ Signed [facility]07-28-2025 Consult note [facility] Medical Records Department [address] [place] [address] Anesthesia Postop Eval II 10/16/241849 MR#: [id number] Acct: [id number] Name: BERNICE JUAN Rep #:[id number] : 1945 79 From: Ki Cabrera MD PCP: Dr. Dago Emery MD Status:ADM I N Y Race: C Location: [place] 444591 -1 Anesthesia Postop Eval I Sum Postop [...] MD Cosigner Signature: Date CC: ~ Signed [facility]07-28-2025 Consult note Author Ki Cabrera [facility] Note Date/Time October 16, 2024 10:5 1am [facility] Medical Records Department [address] [place] [address] Pre-Anesthesia Evaluation 10/16/24 1050 MR#: [id number] Acct: [id number] Name: BERNICE JUAN Rep #:[id number] : 1945 79 From: Ki Cabrera MD PCP: Dr. Dago Emery MD Status:REG S DC Y Race: C Location: [place] [address] ASA Classification* ASA Classification ASA Classification: 2 [...] KNEE ARTHROPLASTY Anesthesia History Anesthesia History - underwriter: Anesthesia History - underwriter Hx Hospitalization No 10/04/24 13:47 Any Problems [...] take am of surgery PONV PONV - underwriter: PONV - underwriter Female Yes 10/04/24 13:47 HX of Motion [...] 10/11/24 15:05 Respiratory Assessment Respiratory Assessment - underwriter: Respiratory Tract Infection Hx - underwriter Hx Respiratory Tract Infection No 10/04/24 13:47 STOP Sleep Apnea STOP Sleep Apnea - underwriter: STOP Sleep Apnea - underwriter Hx Hypertension Yes: CONTROLLED WITH MED 10/04/24 [...] Tobacco Use History Tobacco Use History - underwriter: Tobacco Use History - underwriter Tobacco Use Smoking Status Never smoker 10/04/24 13:47 Hx Tobacco Use No 10/04/24 13:47 Years Smoking Packs Smoked per Day Smoking Cessation Date was within the last 15 years Hx Smoking Cessation Date Hx Smoking Cessation Counseling Hematologic Medial History Hematologic Hx - underwriter: Hematologic Medical Hx - substation operator automatic Hx of Blood Transfusion No 10/04/24 13:47 [...] confused, unrespo /Reproduction History /Reproductive History - underwriter: /Reproductive Hx- underwriter Hx Now No 10/04/24 13:47 Gestational Age [...] surgery Social History household members: none housing: [facility] Smoking Status: Never smoker second hand exposure: No alcohol intake: never substance use type: does not use justice/adventist: Worship seatbelt use: always do you feel safe at home: Yes Review of Systems (Anesthesia) ROS Narrative System reviewed and no additional complaints, except as documented. 10/16/24 1051 <Electronically signed by Ki Cabrera MD > Date _ Ki Cabrera MD Cosigner Signature: Date CC: ~ Signed [facility] Work Phone: 1(819) 401-489407-28-2025 History and physical note Author Nela Rodrigo [facility] Note Date/Time October 16, 2024 10:3 7am [facility] Medical Records Department [address] [place] [address] History & Physical Exam 10/13/24 1655 MR#: [id number] Acct: [id number] Name: BERNICE JUAN Alfred Rep #:[id number] : 1945 79 From: Nela CORNELIUS PCP: Dr. Dago Emery MD Status:REG S NE Location: [place] [address] History and Physical History and Physical Patient [...] LT Hip ORIF - (04/17/2014) OPAL @ [facility] LT Leg - (2007) Knee Replacement RT - (09/23/2022) SAW RT TKR ROBOTIC AT [facility] Anesthesia Complications: None Assistive Devices: Glasses, [...] MD; Dr. Dago Emery MD ~* Signed [facility] Work Phone: 1(307) 752-371607-28-2025 Consult note [facility] Medical Records Department [address] [place] [address] Pre-Anesthesia Evaluation 10/16/24 1050 MR#: [id number] Acct: [id number] Name: BERNICE JUAN Rep #:[id number] : 1945 79 From: Ki Cabrera MD PCP: Dr. Dago Emery MD Status:REG S DC Y Race: C Location: [place] [address] ASA Classification* ASA Classification ASA Classification: 2 [...] KNEE ARTHROPLASTY Anesthesia History Anesthesia History - underwriter: Anesthesia History - underwriter Hx Hospitalization No 10/04/24 13:47 Any Problems [...] take am of surgery PONV PONV - underwriter: PONV - underwriter Female Yes 10/04/24 13:47 HX of Motion [...] 10/11/24 15:05 Respiratory Assessment Respiratory Assessment - underwriter: Respiratory Tract Infection Hx - underwriter Hx Respiratory Tract Infection No 10/04/24 13:47 STOP Sleep Apnea STOP Sleep Apnea - underwriter: STOP Sleep Apnea - underwriter Hx Hypertension Yes: CONTROLLED WITH MED 10/04/24 [...] Tobacco Use History Tobacco Use History - underwriter: Tobacco Use History - underwriter Tobacco Use Smoking Status Never smoker 10/04/24 13:47 Hx Tobacco Use No 10/04/24 13:47 Years Smoking Packs Smoked per Day Smoking Cessation Date was within the last 15 years Hx Smoking Cessation Date Hx Smoking Cessation Counseling Hematologic Medial History Hematologic Hx - underwriter: 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 10/16/24 1051 > Date _ Ki Cabrera MD Cosigner Signature: Date CC: ~ Signed [facility]07-28-2025 History and physical note [facility] Medical Records Department [address] [place] [id number] History & Physical Exam 10/13/24 1655 MR#: [id number] Acct: [id number] Name: BERNICE JUAN Rep #:[id number] : 1945 79 From: Nela CORNELIUS PCP: Dr. Dago Emery MD Status:REG S DC Location: [place] [address] History and Physical History and Physical Patient [...] LT Hip ORIF - (04/17/2014) MAYAG @ [facility] LT Leg - (2007) Knee Replacement RT - (09/23/2022) SAW RT TKR ROBOTIC AT [facility] Anesthesia Complications: None Assistive Devices: Glasses, [...] MD; Dr. Dago Emery MD ~* Signed [facility]07-25-2025 [facility] Medical Records Department [address] [place] [address] History Physical Exam 10/13/241654 MR#: [id number] Acct: [id number] Name: BERNICE JUAN Rep #: [id number] : 1945 79 From: Nela CORNELIUS PCP: Dr. Dago Emery MD Status:[facility] Location: [place] [address] History and Physical History and Physical Patient [...] LT Hip ORIF - (04/17/2014) OPAL @ [facility] LT Leg - (2007) Knee Replacement RT - (09/23/2022) SAW RT TKR ROBOTIC AT [facility] Anesthesia Complications: None Assistive Devices: Glasses, [...] Tenderness palpation of the (more content not included)...[facility] 10-11-2024 Progress [facility] [place] [address] OFFICE VISIT Date of Service: 10/11/24 1453 MR#: [id number] Acct: [id number] Name: BERNICE JUAN Rep #: [id number] : 1945 From: Carolyn Hernandez ch JUVENILE JUSTICE SPECIALIST JUVENILE JUSTICE SPECIALIST-C Age/Sex: 79/F Location: [facility] [place] Status: Signed HPI Subjective Date of Service [...] episodes of overt bleeding, + bruises easily. [facility] Medical History (Updated 10/04/24 @ 13:55 by [...] never substance use type: does not use justice/adventist: Worship seatbelt use: always do you feel safe [...] the past year?: No 10/11/24 1522 h JUVENILE JUSTICE SPECIALIST JUVENILE JUSTICE SPECIALIST-C> Date _ Carolyn Ruvalcaba NP JUVENILE JUSTICE SPECIALIST-C Cosigner Signature: Date (if applicable) CC: ~ [facility]07-23-2025 Progress note Author Carolyn Ruvalcaba [facility] Note Date/Time October 11, 2024 3:22 pm [facility] [address] [address] OFFICE VISIT Date of Service: 10/11/24 1453 MR#: [id number] Acct: [id number] Name: BERNICE JUAN Rep #: [id number] : 1945 From: Carolyn Hernandez JUVENILE JUSTICE SPECIALIST JUVENILE JUSTICE SPECIALIST-C Age/Sex: 79/F Location: [facility] [place] Status: Signed HPI Subjective Date of Service [...] episodes of overt bleeding, + bruises easily. [facility] Medical History (Updated 10/04/24 @ 13:55 by [...] never substance use type: does not use justice/adventist: Worship seatbelt use: always do you feel safe [...] 1522 <Electronically signed by Carolyn philippe NP JUVENILE JUSTICE SPECIALIST-C> Date _ Carolyn Ruvalcaba NP JUVENILE JUSTICE SPECIALIST-C Cosigner Signature: Date (if applicable) CC: ~ [facility] Work Phone: 1(706) 402-680105-14-2025 Radiology Diagnostic study note [facility] Imaging Services [address] [place], [place] [id number] Extremity Lower without Contra MR#: [id number] Acct: [id number] Name: BERNICE JUAN Rep #: [id number] : 1945 F 79 From: Myron Newton MD PCP: Dr. Dago Emery MD Status: [facility] Study:Extremity Lower without Contra Date of Exam: 08/01/24 Exam# [id number] Ordering Dr: Grayson Rodriguez MD PROCEDURE: EXTREMITY [...] left tibia without apparent complication. Reading Location: [place] [address] CC: Dr. Geo Rodriguez MD; Dr. Dago Emery MD ~ Heavy Coil Winder: Signed [facility]04-21-2025 Evaluation note* Diagnosis Onset Date Resolution Status Admit Date Essential thrombocythemia chronic July 10, 2024 12:43pm Myeloproliferative disorder chronic July 10, 2024 12:43pm Essential thrombocythemia chronic July 10, 2024 12:45pm Myeloproliferative disorder chronic July 10, 2024 12:45pm Educational circumstance resolved July 10, 2024 12:45pm Erythrocytosis resolved June 12:45pm Leukocytosis resolved July 10, 2024 12:45pm Thrombocytosis deleted June 12:45pm [facility] Work Phone: 1(387) 264-668304-21-2025 Evaluation note* Diagnosis Onset Date Resolution Status [...] 2:15pm Thrombocytosis deleted October 11, 2024 2:15pm [facility] Work Phone: 1([phone]) 216-285804-21-2025 Evaluation note* Diagnosis Onset Date Resolution Status [...] knee replacement acute October 18, 2024 1:14pm [facility] Work Phone: Discharge summary Author Dr. Yanez [facility] April 12, 2022 10:08am Note Date/Time April 12, 2022 8 :45am [facility] Medical Records Department [address] [place] [address] Emergency Department Summary 04/12/22 MR#: [id number] Acct: [id number] Name: BERNICE JUAN Rep #:[id number] : 1945 76 From: Garret Yanez DO [...] states he has a history of osteoarthritis. [facility] Medical History Anxiety Fracture of left hip [...] History of hip surgery [facility] Smoking Status: Never smoker second hand exposure: No alcohol intake: never substance use type: does not use justice/adventist: Worship seatbelt use: always do you feel safe [...] 9:33 EST Reading Location ID and State: [address] [place] [address] , Service support , Discharge Plan Triage [...] problems, contact your Primary Care Provider. Call [facility] ([phone]) or report to the closest Emergency Room. Call 911 if necessary. 04/12/22 1008 <Electronically signed by Garret Yanez DO> Cosigner Signature (if applicable): CC: Dr. Dago Emery MD ~ Signed [facility] Work Phone: Evaluation note* Diagnosis Onset Date Resolution Status Essential thrombocythemia ch ronic Myeloproliferative disorder chronic Essential thrombocythemia ch ronic Myeloproliferative disorder chronic Educational circumstance res olved Erythrocytosis resolved Leukocytosis resolved [facility] Work Phone: Evaluation note* Diagnosis Onset Date Resolution Status Essential thrombocythemia ch ronic Myeloproliferative disorder chronic Educational circumstance res olved Erythrocytosis resolved Leukocytosis resolved Essential thrombocythemia ch ronic Myeloproliferative disorder chronic [facility] Work Phone: Evaluation note* Diagnosis Onset Date Resolution Status BMI 33.0-33.9,adult acute Debility acute Status post total right knee replacement acute Essential thrombocythemia ch ronic Hyperlipidemia chronic Hypertension chronic Hypothyroidism chronic Essential thrombocythemia ch ronic Myeloproliferative disorder chronic Essential thrombocythemia ch ronic Myeloproliferative disorder chronic Educational circumstance res olved Erythrocytosis resolved Leukocytosis resolved [facility] Work Phone: Hospital Discharge instructionsAmbulatory Orders* 12 Lead EKG [[facility]] Location: None Selected [facility] Work Phone: Reason for referral (narrative)No reason for referral information [facility]Ke[facility] Work Phone: Chief Complaint and Reason for [...] No December 02, 2018 12:53pm Power of Fork Assembler No November 12:53pm Advance Directive Response Recorded Date/ Time Advance Directives Yes April 19, 2014 4:40pm Living Will No April 12 8:37am Power of Fork Assembler No April 12, 2022 8:37am Advance Directive Response Recorded Date/ Time Advance Directives Yes April 19, 2014 5:40pm Living Will No April 12 9:37am Power of Fork Assembler No April 12, 2022 9:37am Advance Directive Response Recorded Date/ Time Advance Directives Yes April 19, 2014 5:40pm Living Will Yes September 03, 2022 11:45am Power of Fork Assembler Yes September 03 11:45am Advance Directive Response Recorded Date/ Time Name of Medical Power of Fork Assembler Dianne Conley , staff attorney September 28, 2022 1:21pm Advance Directives Yes April 19, 2014 4:40pm Living Will Yes September 28, 2022 1:21pm Power of Fork Assembler Yes September 28 1:21pm Advance Directive Response Recorded Date/ Time Living Will No June 27, 2018 2:53pm Do you have a Healthcare Power of Fork Assembler? No June 27, 2018 2:53pm Advance Directives Yes April 19, 2014 5:40pm Advance Directive Response Recorded Date/ Time Living Will No June 27, 2018 2:53pm Do you have a Healthcare Power of Fork Assembler? No June 27, 2018 2:53pm Do you have a Healthcare Power of Fork Assembler? Yes October 16, 2024 8:13pm Advance Directives [...] Care Provider, Referring Provider Active Carolyn Ruvalcaba JUVENILE JUSTICE SPECIALIST, JUVENILE JUSTICE SPECIALIST-C Attending Provider Active Team Status: Inactive Member [...] 2024 End: July 10, 2024 Carolyn Ruvalcaba JUVENILE JUSTICE SPECIALIST, JUVENILE JUSTICE SPECIALIST-C Attending Provider Active Start: July 10, 2024 [...] 2024 End: July 10, 2024 Carolyn Ruvalcaba JUVENILE JUSTICE SPECIALIST, JUVENILE JUSTICE SPECIALIST-C Attending Provider Active Start: July 10, 2024 [...] 2024 End: October 11, 2024 Carolyn Ruvalcaba JUVENILE JUSTICE SPECIALIST, JUVENILE JUSTICE SPECIALIST-C Attending Provider Active Start: October 11, 2024 [...] 2024 End: October 21, 2024 Dr. Juliane Villa MD Other Provider Active St art: October [...] section and content) DATE CREATED AUTHOR 10/20/2024 [facility] FOR RECORDS PERTAINING TO PATIENTS WHO ARE [...] BE BASED ON THE PRIMARY CLINICAL RECORDS. [facility] [employer] [facility]. provides no warranty or guarantee of the accuracy or completeness of information in this document.
--- NOTE | 2024-10-21 16:28 | CPS ---
Patient completed all 6 checks on IS and PEP on previous visit to hospital.
--- NOTE | 2024-10-21 17:47 | HP.PCM_ITS ---
HPI - General General Date of Admission: 10/21/24 Date of Service: 10/23/24 Chief Complaint: Here for rehabilitation. HPI Narrative BERNICE JUAN, is a 79 Female who presents with followin10/16/[address] [facility]. 10/16/2024 Dr. Machuca performed left total knee replacement, removal left tibial nail, removal of 4 interlocking screws. 10/16/2024 Pain control. PT/OT/CM, patient requests TCU. Somnolent after surgery, mild left knee pain. 10/17/2024 Doing well, pain controlled. PT/OT. Surgical incisions oozing blood, steristripped. Nausea/vomiting improved with zofran. Dizzy with standing, tires easily. Doxycycline for 2 weeks 2/ hardware removal. Aspirin 81mg bid x 4 weeks for dvt prophylaxis. 10/18/2024 Transient hypotension resolved. Left ankle pain, CT left ankle showed acute distal tibia fracture. Treated with walking boot, TTWB LLE. 10/19/2024 Aspirin 81mg bid x 4 weeks dvt prophylaxis. Tylenol 1000mg q8, oxycodone for pain. Miralax, prune juice for constipation. Walking boot, TTWB left lower extremity for acute left distal tibial fracture. PT/OT for SNF. 10/20/2024 Hydroxyzine prn anxiety. Boost for constipation. Nausea, dizziness improved. Doing well with PT. 10/21/2024 Admit to TCU with debility, here for rehabilitation, strengthening, prior to discharge home alone. [facility] Medical History (Updated 10/21/24 @ 17:[address] Dago Emery MD) Cardiology follow-up encounter Wears glasses Post-menopausal Depression Anxiety Ambulates with cane Walker as ambulation aid Arthritis Migraine headache History of IBS Non-smoker History of edema History of pain when walking Thrombocythemia Hx of fracture of leg Fracture of left hip requiring operative repair Vitamin D deficiency Osteopenia Melanoma in situ Hypothyroidism Hyperlipidemia Hypertension Home Medications ?Medication ?Instructions ?Recorded ?Last Taken ?Type levothyroxine 50 mcg tablet 50 mcg PO DAILY thyroid 10/21/24 History (Levoxyl) losartan 100 mg tablet 100 mg PO DAILY bp 06/06/18 10/21/24 History amlodipine 5 mg tablet 5 mg PO DAILY bp 07/21/18 History cholecalciferol (vitamin D3) 25 1,000 unit PO DAILY pravin michael 10/26/19 10/21/24 History mcg (1,000 unit) tablet atenolol 50 mg tablet 50 mg PO DAILY@0800 blood 10/21/24 Rx pressure/heart rate 30 days #30 tabs hydroxyurea 500 mg capsule 1,000 mg (2 x 500 mg) PO 10/21/24 Rx MOTUTHFRSA chemo #100 caps acetaminophen 500 mg tablet 1,000 mg PO BID PRN inflam mation 10/04/24 10/21/24 History acetaminophen 500 mg tablet 1,000 mg (2 x 500 mg) PO Q 8 pain 10/21/24 10/21/24 Rx #0 tabs aspirin 81 mg capsule 81 mg PO BIDCM blood thinner #60 10/21/24 10/21/24 Rx caps doxycycline monohydrate 100 mg 100 mg PO BID antibioti c 10/21/24 10/21/24 History capsule famotidine 20 mg tablet 20 mg PO DAILY stomach 30 da ys #0 10/21/24 10/21/24 Rx tabs ferrous sulfate 325 mg (65 mg 325 mg PO 1200,1700 supp lement 20 10/21/24 10/20/24 Rx iron) tablet (FeroSul) days #0 tabs folic acid 1 mg tablet 1 mg PO BREAKFAST supplement 20 10/21/24 10/21/24 Rx days #0 tabs ondansetron HCl (PF) 4 mg/2 mL 4 mg (2 mL) IV Q6H PRN PRN 10/21/24 10/19/24 Rx injection solution Nausea/Vomiting 3 days #0 mL oxycodone 5 mg tablet 5 - 10 mg PO Q4H PRN PRN Lukas n Score 10/21/24 10/21/24 History polyethylene glycol 3350 17 17 g PO BID constipation # 119 grams 10/21/24 Unknown Rx gram/dose oral powder (Miralax) Allergy/AdvReac Type Severity Reaction Status Date / Time promethazine HCl (From Allergy Severe Other Verified 10/16/24 11:13 Phenergan) Penicillins AdvReac Severe Swelling Verified 10/16/24 11:13 red dye AdvReac Severe Unknown Verified 10/16/24 11:13 Tetanus Vaccines and Toxoid AdvReac Intermediate NEEDS Verified 10/16/24 11:13 FOLLOW-UP Family History Father Rheumatoid arthritis Surgical History (Updated 10/21/24 @ 17:[address] Dago Emery MD) History of total left knee replacement History of total right knee replacement Hx of right cataract extraction Hx of left cataract extraction History of breast lump removal History of hip surgery Social History household members: [facility] Smoking Status: Never smoker second hand exposure: No alcohol intake: never substance use type: does not use justice/quaker: Rastafarian seatbelt use: always do you feel safe at home: Yes ROS Constitutional Constitutional: Reports weakness; Denies chills, fever(s) or weight gain ENT HEENT: Denies headache(s), nasal congestion or nasal discharge Cardiovascular Cardiovascular: Denies chest pain or palpitations Respiratory/Chest Respiratory/Chest: Denies cough, excessive phlegm production or shortness of breath with exertion Gastrointestinal Gastrointestinal: Denies abdominal pain, nausea or vomiting Genitourinary Genitourinary: Denies dysuria Musculoskeletal Musculoskeletal: Denies joint pain or joint swelling Integumentary Integumentary: Denies rash or wounds Neurologic Neurologic: Denies focal weakness, numbness or tingling Psychiatric Psychiatric: Denies anxiety, auditory hallucinations, depression, homicidal ideation or suicidal ideation Vital Signs Vital Signs Vital Signs: 10/21/24 13:51 10/21/24 13:51 Temperature 97.2 F L Temperature Source Temporal Pulse Rate 73 Pulse Rhythm Regular Pulse Strength Normal (2+) Respiratory Rate 17 Respiratory Effort Normal Non-Labored Respiratory Depth Normal Respiratory Pattern Normal Blood Pressure 141/70 H Blood Pressure Mean 93 Blood Pressure Source Monitor Pulse Ox 96 Oxygen Delivery Method Room Air Weight Weight: 89.267 kg Body Mass Index (BMI) 32.7 Physical Exam Const alert General Appearance: cooperative HEENT normocephalic Eyes PERRL and EOMs intact bilaterally Neck supple, no JVD and no carotid bruits Resp normal respiratory effort, normal air movement and clear to auscultation bilaterally Cardio regular rate and regular rhythm GI normal to inspection, nondistended, normoactive bowel sounds, non-tender and non-distended Extremity normal capillary refill Extremity Narrative: Left lower extremity dressed. General Extremity: Negative for edema Skin no rashes or lesions noted General Skin Exam: no breakdown Psych affect normal Appearance: appropriate Results Lab / Micro Data 10/22/24 06:45 10/22/24 06:45 Assessment & Plan Assessment/Plan (1) Debility: (2) Status post total left knee replacement: (3) Essential (primary) hypertension: (4) Kidney stones: (5) Myeloproliferative disorder: (6) Hypothyroidism: (7) Vitamin D deficiency: PLAN: Plan 79 year old female with below past medical history hospitalized for left total knee replacement, removal left tibial nail, removal 4 interlocking screws 10/16/[address] Machuca, postoperative course complicated by acute left distal tibial fracture, nausea, vomiting, hypotension, constipation, admitted to TCU with debility, here for rehabilitation, strengthening, prior to discharge home alone. * Debility - PT/OT. * Pain - Tylenol 1000mg q8, Oxycodone 5-10mg q4 prn. * Bowel - senna/colace 2 tablets bid, Magnesium citrate 300mL daily prn. * Adult immunization - Administer pneumonia vaccine, covid vaccine, flu vaccine as appropriate. * DVT prophylaxis - Aspirin 81mg bid thru 11/18/2024. * Hypertension - Atenolol 50mg daily, Losartan 100mg daily, Amlodipine 5mg daily. * Vitamin D deficiency - D3 25mcg daily. * ID prophylaxis - Doxycycline 100mg bid thru 10/30/2024. * GERD - Famotidine 20mg daily. * Iron deficiency anemia - Ferrous sulfate 325mg bid. * Folate deficiency - Folic acid 1mg daily. * Myeloproliferative disorder - Hydrea 1000mg 5 days/week. * Hypothyroidism - Levothyroxine 50mcg daily. * Nausea - Zofran 4mg iv q6 prn.
[2024-10-21] MEDS: Senna/Docusate Sodium 1 Tablet 2 TABLET PO (20:56)
[2024-10-22 07:18] LABS: Hematocrit 26.6 % (37-47); Hemoglobin 8.8 g/dL (12.0-15.0); Immature Granulocytes Count 0.030 X10^3/uL (0.0-0.0); Mean Corp Hgb Conc 33.1 g/dL (32-36); Mean Corpuscular Volume 111.8 fL (81-99); Mean Platelet Vol. 10.4 fl (6.2-12.0); NRBC Flagged by Analyzer 0 % (0-5); Platelet Count 248 K/mm3 (150-450); RBC Distribution Width CV 15.7 % (11.6-14.6); RBC Distribution Width SD 64.2 fl (35.1-43.9); Red Blood Count 2.38 M/mm3 (4.2-5.4); White Blood Count 5.1 K/mm3 (4.4-11.0)
[2024-10-22 07:46] LABS: Anion Gap 10 (5-15); BUN 22 mg/dL (4-19); BUN/Creat Ratio 26.3 RATIO (10-20); Calcium,Total 8.9 mg/dL (7.6-11.0); Carbon Dioxide 22.0 mmol/L (21.0-32.0); Chloride 103 mmol/L (98-108); Estimated Creatinine Clearance 57.97 ml/min (50-250); Glucose 94 mg/dL (70-99); Potassium 4.0 mmol/L (3.3-5.1)
[2024-10-22 09:43] VITALS: BP 113/68; PULSE 66; RESP 17; TEMP 36; O2SAT 95
[2024-10-22] MEDS: Senna/Docusate Sodium 1 Tablet 2 TABLET PO ×2 (09:50→20:58)
[2024-10-22] MEDS: Cholecalciferol (VIT D3) 25 MCG TABLET (1,000 UNITS) PO (09:51)
[2024-10-22] MEDS: Tuberculin,Purif.prot.deriv. 50 TU/ML Vial 0.1 ML ID (09:57)
[2024-10-23] MEDS: Senna/Docusate Sodium 1 Tablet 2 TABLET PO (09:35)
[2024-10-23] MEDS: Cholecalciferol (VIT D3) 25 MCG TABLET (1,000 UNITS) PO (09:36)
--- NOTE | 2024-10-23 14:39 | PCM.PN.DRR ---
Documented by User: Freddie Cameron 10/23/24 14:58 TCU RX Drug Regimen Review Subjective/Objective Subjective/Objective Subjective: TCU admission note. 79 year old female with below past medical history hospitalized for left total knee replacement, removal left tibial nail, removal 4 interlocking screws 10/16/[address] Machuca, postoperative course complicated by acute left distal tibial fracture, nausea, vomiting, hypotension, constipation, admitted to TCU with debility, here for rehabilitation, strengthening, prior to discharge home alone. Objective: Allergies promethazine HCl (From Phenergan) Allergy (Severe, Verified 10/16/24 11:13) Other heightens engery (zing) Penicillins Adverse Reaction (Severe, Verified 10/16/24 11:13) Swelling red dye Adverse Reaction (Severe, Verified 10/16/24 11:13) Unknown mouth to droop Tetanus Vaccines and Toxoid Adverse Reaction (Intermediate, Verified 10/16/24 11:13) NEEDS FOLLOW-UP Current Medications Generic Name Dose Route Start Last Admin Trade Name Jabariq PRN Reason Stop Dose Admin Acetaminophen 1,000 mg 10/21/24 14:00 10/23/24 07:28 Acetaminophen 500 Mg Tablet PO 500 mg Q8 KENDRA Administration Amlodipine Besylate 5 mg 10/22/24 10:00 10/23/24 09:35 Amlodipine 5 Mg Tablet PO 5 mg DAILY KENDRA Administration Protocol Aspirin 81 mg 10/21/24 17:00 10/23/24 09:34 Aspirin 81 Mg Tab.Chew PO 11/18/24 17:01 81 mg BIDCM KENDRA Administration Atenolol 50 mg 10/22/24 08:00 10/23/24 09:34 Atenolol 50 Mg Tablet PO 50 mg DAILY@0800 [facility] Administration Protocol Cholecalciferol 25 mcg 10/22/24 10:00 10/23/24 09:36 Cholecalciferol (Vit D3) 25 Mcg Tablet (1,000 Units) PO 25 mcg DAILY KENDRA Administration Doxycycline Monohydrate 100 mg 10/21/24 22:00 10/23/24 09:35 Doxycycline 100 Mg Capsule PO 10/30/24 22:01 100 mg BID KENDRA Administration Famotidine 20 mg 10/22/24 10:00 10/23/24 09:35 Famotidine 20 Mg Tablet PO 20 mg DAILY KENDRA Administration Ferrous Sulfate 325 mg 10/21/24 17:00 10/22/24 16:36 Ferrous Sulfate 325 Mg Tablet PO Not Given 1200,1700 [facility] Folic Acid 1 mg 10/22/24 08:00 10/23/24 09:34 Folic Acid 1 Mg Tablet PO 1 mg BREAKFAST [facility] Administration Hydroxyurea 1,000 mg 10/23/24 10:00 10/23/24 09:35 Hydroxyurea 500 Mg Capsule PO 1,000 mg MoTuThFrSa@1000 [facility] Administration Levothyroxine Sodium 50 mcg 10/22/24 06:00 10/23/24 05:44 Levothyroxine 50 Mcg Tablet PO 50 mcg DAILY@0600 [facility] Administration Losartan Potassium 100 mg 10/22/24 10:00 10/23/24 09:34 Losartan Potassium 100 Mg Tablet PO 100 mg DAILY [facility] Administration Protocol Magnesium Citrate 300 ml 10/21/24 17:58 Magnesium Citrate 300 Ml PO DAILY PRN Constipation Ondansetron HCl 4 mg 10/23/24 12:56 Ondansetron Odt 4 Mg Tablet PO Q6H PRN NAUSEA/VOMITING Oxycodone HCl 5 - 10 mg 10/21/24 13:59 10/23/24 11:53 Oxycodone 5 Mg Tablet PO 5 mg Q4H PRN PRN Administration Pain Score 3-10 Senna/Docusate Sodium 2 tablet 10/21/24 22:00 10/23/24 09:35 Senna/Docusate Sodium 1 Tablet PO 2 tablet BID [facility] Administration Tuberculin PPD 0.1 ml 10/29/24 10:00 Tuberculin,Purif.Prot.Deriv. 50 Tu/Ml Vial ID 10/29/24 10:01 X1 ONE Problem List Kidney stones (Acute) Essential (primary) hypertension (Acute) Status post total left knee replacement (Acute) Debility (Acute) Myeloproliferative disorder (Chronic) Hypothyroidism (Chronic) Vitamin D deficiency (Acute) Vital Signs Temp Pulse Resp BP Pulse Ox O2 Del Method 96.8 F L 66 17 113/68 95 Room Air 10/22/24 09:43 10/22/24 09:43 10/22/24 09:43 10/22/24 09:43 10/22/24 09:43 10/22/24 16:38 Oxygen Delivery Method Room Air Weight: 89.27 kg Body Mass Index (BMI) 32.7 Sodium 135 mmol/L (133-145) 10/22/24 06:45 Potassium 4.0 mmol/L (3.3-5.1) 10/22/24 06:45 Chloride 103 mmol/L (98-108) 10/22/24 06:45 Carbon Dioxide 22.0 mmol/L (21.0-32.0) 10/22/24 06:45 Anion Gap 10 (5-15) 10/22/24 06:45 BUN 22 mg/dL (4-19) H 10/22/24 06:45 Creatinine 0.84 mg/dL (0.70-1.20) 10/22/24 06:45 Est GFR (MDRD) Non-Af 70 (>60) 10/22/24 06:45 BUN/Creatinine Ratio 26.3 RATIO (10-20) H 10/22/24 06:45 Glucose 94 mg/dL (70-99) 10/22/24 06:45 Assessment/Plan: 1. Pain: acetaminophen 1000 mg PO Q8H, oxycodone 5-10 mg Po Q4H PRN pain. The patient has used 10 doses of PRN oxycodone so far this admission. Please continue to monitor pain levels (hopeful improvement with healing of fracture/surgical site), LFTs (AST/ALT = 22/14 U/L on 10/11/24), for constipation, respiratory depression, dizziness/drowsiness, and for syncope/ataxia/falls. 2. Bowel: senna/docusate 2 tablets PO BID, magnesium citrate 300 mL PO daily PRN constipation. The patient has not required any PRN doses of magnesium citrate so far this admission and the patient's last bowel movement was documented as 10/22/24. Please continue to monitor for bowel movements, PRN medication usage, constipation and diarrhea. 3. DVT prophylaxis: aspirin 81 mg PO BID through 11/18/24. Please continue to monitor for s/s of a DVT such as pain/swelling/erythema in an extremity, for s/s of bleeding/excessive bruising, hemoglobin levels (Hgb = 8.8 g/dL on 10/22/24), and platelet counts (plt = 248 K/mm3 on 10/22/24). 4. ID prophylaxis: doxycycline 100 mg PO BID through 10/30/24. Please continue to monitor for s/s of surgical site infection, WBC counts (WBC = 5.1 K/mm3 on 10/22/24), fevers (temp = 96.8 F), and for photosensitivity and GI distress. 5. Hypertension: amlodipine 5 mg PO daily, atenolol 50 mg PO daily, losartan 100 mg PO daily. Please continue to monitor blood pressures (recent range = 123-165/60-87 mmHg), heart rates (recent range = 54-73 beats/min), for lower extremity edema, for dizziness, for fatigue, renal function (serum creatinine = 0.84 mg/dL with creatinine clearance ~ 58 mL/min on 10/22/24), potassium levels (K = 4.0 mmol/L on 10/22/24), and sodium levels (Na = 135 mmol/L on 10/22/24). 6. GERD: famotidine 20 mg PO daily. Please continue to monitor for s/s of GERD, renal function (serum creatinine = 0.84 mg/dL with creatinine clearance ~ 58 mL/min on 10/22/24), and platelet counts (plt = 248 K/mm3 on 10/22/24), and for encephalopathy. 7. Myeloproliferative disorder: hydroxyurea 1000 mg PO on Mondays, Tuesdays, , Fridays and Saturdays. Please continue to monitor WBC counts (WBC = 5.1 K/mm3 on 10/22/24), hemoglobin levels (Hgb = 8.8 g/dL on 10/22/24), and platelet counts (plt = 248 K/mm3 on 10/22/24). 8. Hypothyroidism: levothyroxine 50 mcg PO daily. Please continue to monitor for s/s of hypo/hyperthyroidism, and thyroid hormone levels (TSH = 1.47 uIU/mL on 07/31/24). 9. Iron deficiency anemia: ferrous sulfate 325 mg PO BID. Please continue to monitor hemoglobin levels (Hgb = 8.8 g/dL on 10/22/24), and iron levels (no recent iron levels documented). 10. Folate deficiency: folic acid 1 mg PO daily with breakfast. Please continue to monitor for s/s of folic acid deficiency. 11. Nausea: ondansetron 4 mg PO Q6H PRN nausea. The patient has not required any PRN doses of ondansetron this admission. Please continue to monitor for nausea and PRN medication usage. 12. Vitamin D deficiency: cholecalciferol 25 mcg PO daily. Please continue to monitor vitamin D levels (vitamin D = 18.9 ng/mL on 07/31/24), and for s/s of vitamin D deficiency. Assessment/Plan for indications treated with psychotropic medications: NA Medical chart and medication regimen reviewed. The following medication irregularities or issues were identified: NA Date Date of Note: 10/23/24 Documented by User: Dr. Daog Emery MD 10/23/24 15:14 TCU RX Drug Regimen Review Provider Comments Provider responsibility Provider Comments to Recommendations by Pharmacy Agree
--- NOTE | 2024-10-23 15:19 | CASEMGMT ---
Social Work SW met with patient to complete initial assessment. Pt known to this worker from previous stay. Verified/updated contacts. Patient confirmed code status as full code. Educated to Medicare benefit and copay coverage. Pt's goal is to return home alone closer to PLOF, but aware she will need assistance with transportation. SW will continue to follow for DC planning. Ariadne Schafer SHELF FILLER LOW VOLTAGE ELECTRICIAN
[2024-10-23 16:00] VITALS: BP 138/66; PULSE 55; RESP 13; TEMP 36.9
[2024-10-23 20:00] VITALS: PULSE 67; O2SAT 96
[2024-10-24 06:42] VITALS: PULSE 62; O2SAT 96
[2024-10-24 09:12] VITALS: BP 110/54; PULSE 62; RESP 17; TEMP 36.9; O2SAT 94
[2024-10-24] MEDS: Cholecalciferol (VIT D3) 25 MCG TABLET (1,000 UNITS) PO (09:17)
[2024-10-24 14:09] VITALS: BMI 32.8
--- NOTE | 2024-10-24 17:23 | NURSING ---
Addendum entered by Erik Causey 10/24/24 17:30: PRN Ativan ordered as well. Order entered by Dr. Emery. Addendum entered by Erik Causey 10/24/24 17:27: New order for Celexa. Order entered by Dr. Emery. Original Note: Patient requested diet be changed to regular. Updated Dr. Emery. New order for regular diet entered by Dr. Emery. Patient also requesting to speak with Dr. Emery regarding medication for her anxiety. Dr. Emery made aware.
[2024-10-25] MEDS: Cholecalciferol (VIT D3) 25 MCG TABLET (1,000 UNITS) PO (08:00)
--- NOTE | 2024-10-25 13:33 | CASEMGMT ---
Social Work IDT met with patient for care plan meeting. Discussed patient's progress in PT/OT/SN/RDN. Educated to Medicare benefit. Provided pt/family with written communication of insurance process and copay coverage during stay. SW provided pt with transportation resources. Pt is currently x2A and TTWB, which she cannot maintain, thus NWB. Pt lives at home alone and is frustrated with need to relay on others to assist pt. Dr started pt on antidepressant to assist with loss of independence and adjustment. SW explained pt may not make enough progress with NWB that Medicare will allow for continued stay. Pt acknowledged she may need a SNF prior to home and preference is to remain in TCU or [facility]. Pt can pay OOP. SW encouraged pt to maintain motivation to progressing in TCU and when pt plateaus, this worker will assist with DC planning. Pt agreed. SW will continue to follow. Ariadne Schafer EMERGENCY MEDICAL SERVICE MANAGER SALESPERSON SHEET MUSIC
[2024-10-25 16:58] VITALS: BP 135/66; PULSE 57; TEMP 35.6; O2SAT 96
[2024-10-25 23:08] VITALS: PULSE 62; RESP 17; O2SAT 97
--- NOTE | 2024-10-26 08:29 | NURSING ---
Water Filterer Helper Note; Activity Asset: Valerio Contreras has been on TCU in the past and continues to be independent in her choice of daily activities. She prefers to be around other during the day for social interaction. While in her room she will watch tv and read. Diane welcomes visits from the data processing specialist and therapy dog when available, staff will encourage social activities and respect her right to say no.
[2024-10-26] MEDS: Cholecalciferol (VIT D3) 25 MCG TABLET (1,000 UNITS) PO (09:39)
[2024-10-26 10:00] VITALS: BP 109/53; PULSE 56; RESP 18; TEMP 36.9; O2SAT 96
--- NOTE | 2024-10-26 13:17 | MDS.RN ---
Pain assessment for MDS complete.
--- NOTE | 2024-10-26 16:14 | NURSING ---
Talked with patient about 2 week F/U with Dr. Machuca and about [facility] Patient states she does not want checkbook or escobar brought in to hospital and also feels she has no one who can transport her or pay for transport over the phone. Dr. Machuca's office contacted and informed of situation. Clinical staff member aLla states they will call back tomorrow with plan.
[2024-10-26] MEDS: Senna/Docusate Sodium 1 Tablet 2 TABLET PO (20:02)
[2024-10-27 05:46] LABS: Hematocrit 24.5 % (37-47); Hemoglobin 8.0 g/dL (12.0-15.0); Immature Granulocytes Count 0.070 X10^3/uL (0.0-0.0); Mean Corp Hgb Conc 32.7 g/dL (32-36); Mean Corpuscular Volume 113.4 fL (81-99); Mean Platelet Vol. 9.9 fl (6.2-12.0); NRBC Flagged by Analyzer 0 % (0-5); POSITIVE MORPHOLOGY YES; Platelet Count 230 K/mm3 (150-450); RBC Distribution Width CV 15.9 % (11.6-14.6); RBC Distribution Width SD 65.3 fl (35.1-43.9); Red Blood Count 2.16 M/mm3 (4.2-5.4); White Blood Count 4.7 K/mm3 (4.4-11.0)
[2024-10-27 06:13] LABS: Anion Gap 10 (5-15); BUN 28 mg/dL (4-19); BUN/Creat Ratio 24.5 RATIO (10-20); Calcium,Total 8.8 mg/dL (7.6-11.0); Carbon Dioxide 22.3 mmol/L (21.0-32.0); Chloride 100 mmol/L (98-108); Differential Indicated SCAN CRITERIA MET; Estimated Creatinine Clearance 42.03 ml/min (50-250); Glucose 85 mg/dL (70-99); Potassium 4.5 mmol/L (3.3-5.1)
[2024-10-27 06:32] LABS: Anisocytosis 2+; Polychromasia RARE; Red Cell Morphology NORM C+C NORMAL (NORM C&C)
[2024-10-27 09:00] VITALS: BP 111/48; PULSE 58; RESP 16; TEMP 36.6; O2SAT 97
[2024-10-27] MEDS: Cholecalciferol (VIT D3) 25 MCG TABLET (1,000 UNITS) PO (09:02)
[2024-10-27] MEDS: Senna/Docusate Sodium 1 Tablet 2 TABLET PO (09:03)
--- NOTE | 2024-10-27 17:49 | CASEMGMT ---
Social Work SW completed BIMS () and PHQ-2 () for MDS assessment. pt reports mood improvement since start of antidepressant, but feeling more sleepy during the day and less at night. SW offered to administer pill at night to allow better sleep, if pt desired. pt to consider and notify nursing if that is her wish. Ariadne Schafer MULTIPLE COIL WINDER SITE SPECIALIST
[2024-10-27 20:00] VITALS: O2SAT 96
[2024-10-28 07:33] LABS: Hematocrit 25.0 % (37-47); Hemoglobin 8.3 g/dL (12.0-15.0); POSITIVE MORPHOLOGY YES
[2024-10-28] MEDS: Cholecalciferol (VIT D3) 25 MCG TABLET (1,000 UNITS) PO (09:48)
[2024-10-28 10:00] VITALS: RESP 16; O2SAT 98
[2024-10-28 16:00] VITALS: BP 130/55; PULSE 53; RESP 16; TEMP 36.8; O2SAT 95
--- NOTE | 2024-10-28 20:44 | NURSING ---
Administered HS medications at this time per patient request
[2024-10-29] MEDS: Senna/Docusate Sodium 1 Tablet 2 TABLET PO (08:31)
[2024-10-29] MEDS: Cholecalciferol (VIT D3) 25 MCG TABLET (1,000 UNITS) PO (08:31)
[2024-10-29] MEDS: Tuberculin,Purif.prot.deriv. 50 TU/ML Vial 0.1 ML ID (10:20)
[2024-10-29 12:49] VITALS: BP 157/63; PULSE 60; RESP 18; TEMP 36.6; O2SAT 93
[2024-10-29 19:28] VITALS: PULSE 50; RESP 16; O2SAT 96
[2024-10-30 05:41] LABS: Hematocrit 24.1 % (37-47); Hemoglobin 7.9 g/dL (12.0-15.0)
--- NOTE | 2024-10-30 08:32 | NURSING ---
Taffy Candy Maker Note; MDS for 10/28/2024 Complete
--- NOTE | 2024-10-30 08:51 | NURSING ---
Offered covid vaccine, VIS provided. Resident declines.
[2024-10-30 09:18] VITALS: BP 134/53; PULSE 54; RESP 18; TEMP 36.8; O2SAT 97
[2024-10-30] MEDS: Cholecalciferol (VIT D3) 25 MCG TABLET (1,000 UNITS) PO (09:20)
[2024-10-30] MEDS: Senna/Docusate Sodium 1 Tablet 2 TABLET PO ×2 (09:21→22:48)
[2024-10-30 20:00] VITALS: PULSE 71; O2SAT 93
--- NOTE | 2024-10-30 23:48 | NURSING ---
Sutures removed to left knee and left ankle, patient tolerated fair, premedicated for pain and anxiety.
--- NOTE | 2024-10-31 03:47 | NURSING ---
Stool sample collected for occult blood.
--- NOTE | 2024-10-31 04:16 | NURSING ---
Stool for occult blood result is positive, Dr. Emery updated via written communication.
[2024-10-31 06:40] VITALS: PULSE 60; O2SAT 93
[2024-10-31 07:15] LABS: Hematocrit 24.8 % (37-47); Hemoglobin 8.4 g/dL (12.0-15.0)
--- NOTE | 2024-10-31 08:23 | CASEMGMT ---
Social Work SW checked-in with patient this morning. Pt had breakfast tray. SW offered to readjust pt in bed to sit more upright. Pt reports HOB was elevated as much as possible. SW provided pillows behind pt. Pt reports having difficulty with swallowing since surgery. Pt observed pt coughing with each sip of drink and while eating oatmeal. SW offered for HOG SAWYER to assist with transferring to chair for better positioning, but pt denied. SW informed pt ST would be consulted. Pt agreed. ST order entered. Ariadne Schafer OTOLARYNGOLOGY REP FAMILY REUNIFICATION SPECIALIST
[2024-10-31 08:38] VITALS: BP 122/53; PULSE 55; RESP 18; TEMP 36.4; O2SAT 94
[2024-10-31] MEDS: Cholecalciferol (VIT D3) 25 MCG TABLET (1,000 UNITS) PO (08:44)
--- NOTE | 2024-10-31 09:51 | EX.PCM.CON.G ---
HPI Consult Data Date of Consult: 10/31/24 HPI Narrative Reason for Consultation: Anemia HPI Narrative: BERNICE JUAN, is a 79 F who is currently in rehab. 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 She has no known chronic infectious or inflammatory diseases. 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 She is currently taking hydroxyurea and [address] Machuca performed left total knee replacement, removal left tibial nail, removal of 4 interlocking screws. All postoperative course has been complicated by an acute distal tibial fracture. She remains on aspirin therapy and starting on doxycycline. I was asked to see her due to decreasing hemoglobin A1c provide with stools. Patient states she has had colonoscopy as part of recently but the last 5 years. [facility] Medical History Cardiology follow-up encounter Wears glasses Post-menopausal Depression Anxiety Ambulates with cane Walker as ambulation aid Arthritis Migraine headache History of IBS Non-smoker History of edema History of pain when walking Thrombocythemia Hx of fracture of leg Fracture of left hip requiring operative repair Vitamin D deficiency Osteopenia Melanoma in situ Hypothyroidism Hyperlipidemia Hypertension Home Medications ?Medication ?Instructions ?Recorded ?Last Taken ?Type levothyroxine 50 mcg tablet 50 mcg PO DAILY thyroid 08/04/13 10/21/24 History (Levoxyl) losartan 100 mg tablet 100 mg PO DAILY bp 06/06/18 10/21/24 History amlodipine 5 mg tablet 5 mg PO DAILY bp 07/21/18 10/21/24 History cholecalciferol (vitamin D3) 25 1,000 unit PO DAILY bones 10/26/19 10/21/24 History mcg (1,000 unit) tablet atenolol 50 mg tablet 50 mg PO DAILY@0800 blood 10/09/22 10/21/24 Rx pressure/heart rate 30 days #30 tabs hydroxyurea 500 mg capsule 1,000 mg (2 x 500 mg) PO 10/02/24 10/21/24 Rx MOTUTHFRSA chemo #100 caps acetaminophen 500 mg tablet 1,000 mg PO BID PRN inflammation 10/04/24 10/21/24 History acetaminophen 500 mg tablet 1,000 mg (2 x 500 mg) PO Q8 pain 10/21/24 10/21/24 Rx #0 tabs aspirin 81 mg capsule 81 mg PO BIDCM blood thinner #60 10/21/24 10/21/24 Rx caps doxycycline monohydrate 100 mg 100 mg PO BID antibiotic 10/21/24 10/21/24 History capsule famotidine 20 mg tablet 20 mg PO DAILY stomach 30 days #0 10/21/24 10/21/24 Rx tabs ferrous sulfate 325 mg (65 mg 325 mg PO 1200,1700 supplement 20 10/21/24 10/20/24 Rx iron) tablet (FeroSul) days #0 tabs folic acid 1 mg tablet 1 mg PO BREAKFAST supplement 20 10/21/24 10/21/24 Rx days #0 tabs ondansetron HCl (PF) 4 mg/2 mL 4 mg (2 mL) IV Q6H PRN PRN 10/21/24 10/19/24 Rx injection solution Nausea/Vomiting 3 days #0 mL oxycodone 5 mg tablet 5 - 10 mg PO Q4H PRN PRN Pain Score 10/21/24 10/21/24 History polyethylene glycol 3350 17 17 g PO BID constipation #119 grams 10/21/24 Unknown Rx gram/dose oral powder (Miralax) Allergy/AdvReac Type Severity Reaction Status Date / Time promethazine HCl (From Allergy Severe Other Verified 10/16/24 11:13 Phenergan) Penicillins AdvReac Severe Swelling Verified 10/16/24 11:13 red dye AdvReac Severe Unknown Verified 10/16/24 11:13 Tetanus Vaccines and Toxoid AdvReac Intermediate NEEDS Verified 10/16/24 11:13 FOLLOW-UP Family History Father Rheumatoid arthritis Surgical History History of total left knee replacement History of total right knee replacement Hx of right cataract extraction Hx of left cataract extraction History of breast lump removal History of hip surgery Social History household members: none [facility] Smoking Status: Never smoker second hand exposure: No alcohol intake: never substance use type: does not use justice/anabaptist: Evangelical seatbelt use: always do you feel safe at home: Yes ROS Constitutional Constitutional: Denies fatigue, fever(s), poor appetite, weight gain or weight loss Gastrointestinal Gastrointestinal: Denies belching, bloating, change in bowel habits, change in stool character, chewing difficulty, coffee ground emesis, constipation, cramping, diarrhea, dyspepsia, dysphagia, early satiety, excessive flatus, fecal incontinence, heartburn, hematemesis, hematochezia, hemorrhoids, loose stools, melena, nausea, odynophagia, rectal bleeding, tenesmus, vomiting or weight changes Physical Exam Const alert General Appearance: cooperative HEENT normocephalic Eyes PERRL and EOMs intact bilaterally Neck supple, no JVD and no carotid bruits Resp normal respiratory effort, normal air movement and clear to auscultation bilaterally Cardio regular rate and regular rhythm GI normal to inspection, nondistended, normoactive bowel sounds, non-tender and non-distended Extremity normal capillary refill Extremity Narrative: Left lower extremity dressed. General Extremity: Negative for edema Skin no rashes or lesions noted General Skin Exam: no breakdown Psych affect normal Appearance: appropriate Lab / Micro Data 10/31/24 06:55 10/27/24 05:29 Labs: Laboratory Results - last 24 hr 10/31/24 06:55: Hgb 8.4 L, Hct 24.8 L Micro: Microbiology 10/31/24 03:40 Stool Stool Occult Blood (BREA) - Final Occult Blood Positive Assessment & Plan Assessment/Plan (1) Anemia: PLAN: 79-year-old with essential thrombocythemia on hydroxyurea and aspirin status post right knee replacement and ankle fracture. She currently is possibly having acute blood loss anemia. She should undergo an upper endoscopy and is a colonoscopy for acute GI blood loss. She was explained alternatives, benefits, risks including not withstanding bleeding, infection, sepsis, perforation, need for surgery and . She will have an ASA 3. Charges/Coding Visit Charges Inpatient E&M: 28299 SNF Init L2
--- NOTE | 2024-10-31 10:10 | RAD_ITS ---
PROCEDURE: ANKLE MIN 3 VIEWS 10/31/2024 REASON FOR EXAM: LEFT TOTAL KNEE REPLACEMENT TECHNIQUE: ANKLE MIN 3 VIEWS Laterality: Left COMPARISON: October 17, 2024 FINDINGS: Bones: Decreased bone mineralization. Old, healed fracture of the fibular diaphysis with bayoneting of the healed fragments. Oblique fracture through the tibial metadiaphysis. Mild sclerotic change. This is subacute. Joints: Mild degenerative change tibiotalar joint and subtalar joint. Soft tissues: Atherosclerosis is present. Other: Large calcaneal spur. Minimal calcification dorsal to the talar neck. Non-specific but can be associated with capsular injury. RAD/Ankle min 3 Views IMPRESSION: 1. Decreased bone mineralization. 2. Fracture of the distal tibial metadiaphysis. Similar to prior. Likely sub acute injury Reading Location: [id number]
--- NOTE | 2024-10-31 10:15 | NURSING ---
Addendum entered by Jocelynn Spicer 10/31/24 12:58: Follow-up scheduled for Wednesday11/03/24 at 1345, [facility] transport with [facility] with a p/u of [phone]. Updated resident and gave paper with date/time. Original Note: Call from Mari mcgregor to check on resident. Updated them on how she's mobilizing per last PT note, that sutures were removed yesterday, and she's still waiting on finances to book transport for appt. Office asked for xrays to be completed. Orders entered. Resident updated.
--- NOTE | 2024-10-31 10:40 | RAD_ITS ---
PROCEDURE: KNEE 1 OR 2 VIEWS 10/31/2024 REASON FOR EXAM: POST-OP TECHNIQUE: KNEE 1 OR 2 VIEWS Laterality: Left COMPARISON: None FINDINGS: Patient is status post total knee replacement of the constrained type. There is good alignment. 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 There is good alig nment. [id number]
--- NOTE | 2024-10-31 13:23 | CASEMGMT ---
Social Work In preparation for DC, pt's only SNF choice is [facility]. SW sent referral to [facility] via [facility] to establish interest and ensure bed availability. Ariadne Schafer MSW MAT CLEANING MACHINE OPERATOR
--- NOTE | 2024-11-01 00:01 | NURSING ---
NPO AT THIS TIME PER ORDER
[2024-11-01 09:20] VITALS: BP 146/58; PULSE 60; RESP 18; TEMP 36.7; O2SAT 93
[2024-11-01 14:26] VITALS: BP 153/68; PULSE 67; RESP 19; TEMP 36.5; O2SAT 96; BMI 32.8
--- NOTE | 2024-11-01 14:49 | NURSING ---
Pt off unit for procedure with Dr. Webb.
--- NOTE | 2024-11-01 17:34 | NURSING ---
Pt returned from EGD okay to resume previous diet. Pt to starte on Protonix and Carafate. Pt has allergy to red dye unable to order Carafate Dr. Emery and Dr. Webb updated.
[2024-11-02] MEDS: Senna/Docusate Sodium 1 Tablet 2 TABLET PO (09:29)
[2024-11-02] MEDS: Cholecalciferol (VIT D3) 25 MCG TABLET (1,000 UNITS) PO (09:29)
[2024-11-02 09:43] VITALS: BP 91/27; PULSE 59
--- NOTE | 2024-11-02 10:41 | MDS.RN ---
Information for the MDS was obtained from review of the clinical record, interview of resident, staff, and direct observation of resident?s care.
[2024-11-02 11:42] VITALS: BP 109/49; PULSE 53
[2024-11-02 16:00] VITALS: BP 97/49; PULSE 54; RESP 16; TEMP 36.8; O2SAT 99
--- NOTE | 2024-11-02 19:58 | NURSING ---
BP 91/27 this AM. Recheck 109/49. BP meds held by Silva COLE. Dr. Emery made aware and Atenolol decreased and Amlodipine and Losartan d/c. Patient made aware.
[2024-11-02 21:06] VITALS: BP 136/65; PULSE 55
[2024-11-03 05:41] LABS: Hematocrit 26.9 % (37-47); Hemoglobin 9.0 g/dL (12.0-15.0); Immature Granulocytes Count 0.020 X10^3/uL (0.0-0.0); Mean Corp Hgb Conc 33.5 g/dL (32-36); Mean Corpuscular Volume 114.0 fL (81-99); Mean Platelet Vol. 9.9 fl (6.2-12.0); NRBC Flagged by Analyzer 0 % (0-5); POSITIVE MORPHOLOGY YES; Platelet Count 328 K/mm3 (150-450); RBC Distribution Width CV 17.2 % (11.6-14.6); RBC Distribution Width SD 70.4 fl (35.1-43.9); Red Blood Count 2.36 M/mm3 (4.2-5.4); White Blood Count 3.4 K/mm3 (4.4-11.0)
[2024-11-03 06:07] LABS: Anion Gap 11 (5-15); BUN 18 mg/dL (4-19); BUN/Creat Ratio 15.7 RATIO (10-20); Calcium,Total 8.8 mg/dL (7.6-11.0); Carbon Dioxide 22.1 mmol/L (21.0-32.0); Chloride 101 mmol/L (98-108); Estimated Creatinine Clearance 42.03 ml/min (50-250); Glucose 88 mg/dL (70-99); Potassium 4.0 mmol/L (3.3-5.1)
[2024-11-03 06:19] LABS: Differential Indicated SCAN CRITERIA MET
[2024-11-03 06:57] LABS: Anisocytosis 2+; Differential Comment SCANNED; Macrocytosis 2+; Polychromasia RARE; Red Cell Morphology N CHROM NORMAL (NORM C&C)
[2024-11-03 10:23] VITALS: BP 150/61; PULSE 56; RESP 16; TEMP 36.4; O2SAT 94
[2024-11-03] MEDS: Cholecalciferol (VIT D3) 25 MCG TABLET (1,000 UNITS) PO (10:27)
--- NOTE | 2024-11-03 12:17 | NURSING ---
PT VERY ANXIOUS ABOUT GOING TO [facility], STATES I AM AFRAID OF GOING ON THE RIDE TO [facility], I GET MOTION SICK ZOFRAN GIVEN, ALONG WITH ATIVAN. ATTEMPTED TO RELAX PT BY TALKING AND GIVING HER CHICKEN BROTH PER HER REQUEST. PT WAS ON LIGHT FREQUENTLY, STATES I DONT LIKE TO BE ALONE 1:1 EMOTIONAL SUPPORT PROVIDED. WILL UPDATE TRANSPORT TEAM. PT SITTING IN RECLINER CHAIR, LEGS ELEVATED. RESTING WITH EYES CLOSED. CALL LIGHT IN REACH.
--- NOTE | 2024-11-03 12:45 | NURSING ---
PHYSICIANS HERE TO TRANSPORT PT TO [facility], REPORT GIVEN.
--- NOTE | 2024-11-03 15:13 | NURSING ---
PT RETURNED FROM [facility] WITH THERAPY ORDERS, ANKLE XRAY STAT 3 VIEWS.
--- NOTE | 2024-11-03 15:20 | RAD_ITS ---
PROCEDURE: ANKLE MIN 3 VIEWS 11/03/2024 REASON FOR EXAM: PAIN TECHNIQUE: ANKLE MIN 3 VIEWS Laterality: Left COMPARISON: X-ray left ankle 10/17/2024 FINDINGS: Bones: Old healed fracture deformity of distal fibula. Redemonstration of mildly displaced fracture deformity of distal tibia with overlying cast. There is persistent mildly displaced fracture deformity of distal tibial metadiaphysis. Calcaneal spurs are visualized. Diffuse osteopenia of visualized bones. Joints: Degenerative changes of visualized ankle joint. Soft tissues: Soft tissue swelling overlying ankle joint. RAD/Ankle min 3 Views IMPRESSION: Mildly displaced fracture deformity of distal tibial metaphysis with partial he aling and minimal callus formation with overlying cast. Old healed fracture deformity of distal fibula. Reading Location: [id number]
--- NOTE | 2024-11-03 17:56 | NURSING ---
Friend here, brought pt a cheesburger. pt eating, pt states she does not like hospital food so feels she is starving. will notify showroom salesperson. elevated LT leg on pillow in chair to prevent heel pressure. pt denies pain at this time. Friend came out to desk to apologize for pt behavior. states pt was an only child and is use to getting what she wants and when she wants it. stated that she continues to remind pt to say please & thank you
[2024-11-03 19:45] VITALS: PULSE 60; RESP 16
[2024-11-03] MEDS: Senna/Docusate Sodium 1 Tablet 2 TABLET PO (21:35)
[2024-11-04] MEDS: Senna/Docusate Sodium 1 Tablet 2 TABLET PO ×2 (09:13→22:14)
[2024-11-04] MEDS: Cholecalciferol (VIT D3) 25 MCG TABLET (1,000 UNITS) PO (09:14)
[2024-11-04 14:55] VITALS: BP 146/66; PULSE 96; RESP 16; TEMP 36.8; O2SAT 96
[2024-11-04] MEDS: Magnesium Citrate 300 ML PO (17:18)
--- NOTE | 2024-11-05 04:20 | NURSING ---
Patient awake at time to use BSC, requested and received early AM meds now, so I don't get woke up later when I am sleeping
[2024-11-05 11:00] VITALS: BP 161/76; PULSE 60; RESP 17; TEMP 36.6; O2SAT 93
[2024-11-05] MEDS: Cholecalciferol (VIT D3) 25 MCG TABLET (1,000 UNITS) PO (11:08)
[2024-11-05 12:58] VITALS: PULSE 60; RESP 17; O2SAT 93
--- NOTE | 2024-11-05 20:13 | NURSING ---
Pt picked open scab on left hand and stated, I picked open this scab and I'm bleeding to ! This nurse cleaned hand, applied DSD, and educated pt about skin care. Pt denied further needs at this time. Call light and personal belongings within reach.
[2024-11-06 07:14] VITALS: PULSE 58; RESP 16; O2SAT 93
[2024-11-06 09:00] VITALS: BP 127/59; PULSE 59; RESP 17; TEMP 36.8; O2SAT 93
[2024-11-06] MEDS: Cholecalciferol (VIT D3) 25 MCG TABLET (1,000 UNITS) PO (09:17)
[2024-11-06] MEDS: Senna/Docusate Sodium 1 Tablet 2 TABLET PO ×2 (09:17→20:56)
[2024-11-07 08:40] VITALS: PULSE 60; RESP 16; O2SAT 95
[2024-11-07] MEDS: Cholecalciferol (VIT D3) 25 MCG TABLET (1,000 UNITS) PO (11:05)
--- NOTE | 2024-11-07 14:42 | CHAPLAIN ---
Type of Pastoral Visit _x__ Initial Visit ___ Follow-up Visit ___ On-call Visit ___ General Patient Visit ___ Spiritual Assessment ___ Family Conference ___ Bereavement ___ Rapid Response ___ Code Blue ___ Other (describe below) Pastoral Care Referral From ___ Patient ___ Family _x__ Nurse ___ Physician ___ Custom Shoemaker ___ It Support Analyst ___ Other (describe below) Sacrament/Intervention _x__ Active listening ___ Anointing ___ Samaritan ___ Bereavement ___ Communion _x__ Anat exploration ___ _x__ Life review _x__ Prayer ___ Reconciliation ___ Sacrament of Sick _x__ Supportive presence ___ Wedding ___ Other (describe below) Pastoral Comments RN asked for this beaver trapper to visit this patient; per report this patient is very discouraged and lonely; pt welcomes this beaver trapper to sit down with her and she is very talkative; pt reveals that her restorationism has changed names and affiliations of which she is not happy and yet states that she hasn't been active there for 10 years; pt gives life review and admits that family is not supportive and some members do not talk with her and each other; pt states bluntly that she would rather be and 'why am I still living?'; normalized these thoughts and feelings as that which can be seen in older people and those who have mental or physical difficulties; pt goes on to reveal that she has been mad at God for taking her 20 years ago, having friends , and seeing family strife; acknowledged pt's feelings and words of doubt and loss; lots of time given to hear the patient express her honest emotions, to accept her own possibilities of these feelings due to her declining health and medications that she takes; pt is asked about her anat, her interests, and ways of coping; more discussion on these items; pt is willing for prayer to be spoken and she gives appreciative words at the conculsion of the visit
--- NOTE | 2024-11-07 14:58 | NURSING ---
Addendum entered by Jocelynn Spicer 11/08/24 13:46: 11/07/24 @1515- Call back from office, they read through note from visit and noted the provider wanted her to do normal ROM during the day along with CPM. Updated SW who passed along to PT. Original Note: Left VM with staff for Dr. Machuca about CPM order. Therapy report resident doing good amount of ROM in chair/bed/therapy and don't feel it is necessary. Await return call.
[2024-11-07 16:00] VITALS: BP 122/70; PULSE 60; RESP 16; TEMP 36.8; O2SAT 95
[2024-11-07] MEDS: Senna/Docusate Sodium 1 Tablet 2 TABLET PO (22:11)
--- NOTE | 2024-11-08 09:41 | NURSING ---
Addendum entered by Dara Waters Crescencio 11/08/24 13:47: Able to get pt to take her morning meds with much encouragement. pt still states that her upset stomach is from getting 0600 meds on empty stomach. Educated pt again that she can take food with them we have cracker, yogurt, pudding, on unit. then pt preceded to say that she doesn't like to take meds that early. explained that if we change carafate to after meals it has to be 2 hrs after a meal she will still be taking on empty stomach because that med is to be taken that way. pt has been taking those meds since starting them on this unit with no issue. pt also has many c/o [facility] food not being good. pt difficult to please. Original Note: BOAT GARNISHER reported pt vomited during brkfst. states its was from taking pills on empty stomach. Educated pt that she can take pills with crackers/yogurt/applesauce, that it is available on floor for nursing. pt verbalized understanding. pt resting in bed, holding off on AM meds for now per pt request.
[2024-11-08 10:03] VITALS: BP 169/79; PULSE 67; RESP 15; TEMP 36.7; O2SAT 94
[2024-11-08 10:18] VITALS: PULSE 60; RESP 16; O2SAT 94
[2024-11-08] MEDS: Senna/Docusate Sodium 1 Tablet 2 TABLET PO (19:41)
--- NOTE | 2024-11-09 01:35 | NURSING ---
Patient urinating frequently throughout the night. Bladder scan resulted in 429ml of urine. Per protocol, straight catheterized using sterile technique. 500ml of clear, yellow urine emptied from bladder. Patient tolerated well. Per protocol, continue voiding trials Q8H for 72 hours.
--- NOTE | 2024-11-09 06:43 | NURSING ---
Per patient'[s request, she does not want her medication before breakfast d/t nausea/vomiting from taking medications on empty stomach. This nurse offered patient a snack with morning medications. Patient refused snack and is adamant about taking medications after she has her breakfast. 0600 medication marked as refused per patient's request.
[2024-11-09 10:33] VITALS: BP 121/62; PULSE 66; RESP 16; TEMP 35.8; O2SAT 93
[2024-11-09] MEDS: Cholecalciferol (VIT D3) 25 MCG TABLET (1,000 UNITS) PO (10:39)
[2024-11-09 20:00] VITALS: PULSE 60; O2SAT 94
[2024-11-09] MEDS: Senna/Docusate Sodium 1 Tablet 2 TABLET PO (21:03)
[2024-11-10 02:25] VITALS: PULSE 56; O2SAT 94
--- NOTE | 2024-11-10 04:00 | NURSING ---
Patient requested and received PRN Ativan for c/o anxiety due to worrying about D/C plans. non pharmaceutical interventions ineffective,
[2024-11-10 08:08] LABS: Hematocrit 25.3 % (37-47); Hemoglobin 8.4 g/dL (12.0-15.0); Immature Granulocytes Count 0.020 X10^3/uL (0.0-0.0); Mean Corp Hgb Conc 33.2 g/dL (32-36); Mean Corpuscular Volume 113.5 fL (81-99); Mean Platelet Vol. 10.1 fl (6.2-12.0); NRBC Flagged by Analyzer 0 % (0-5); POSITIVE MORPHOLOGY YES; Platelet Count 304 K/mm3 (150-450); RBC Distribution Width CV 17.2 % (11.6-14.6); RBC Distribution Width SD 71.7 fl (35.1-43.9); Red Blood Count 2.23 M/mm3 (4.2-5.4); White Blood Count 4.2 K/mm3 (4.4-11.0)
[2024-11-10 08:17] LABS: Differential Indicated SCAN CRITERIA MET
[2024-11-10 08:47] LABS: Anion Gap 11 (5-15); BUN 13 mg/dL (4-19); BUN/Creat Ratio 13.9 RATIO (10-20); Calcium,Total 8.5 mg/dL (7.6-11.0); Carbon Dioxide 25.0 mmol/L (21.0-32.0); Chloride 102 mmol/L (98-108); Estimated Creatinine Clearance 54.17 ml/min (50-250); Glucose 82 mg/dL (70-99); Potassium 3.7 mmol/L (3.3-5.1)
[2024-11-10 08:59] LABS: Anisocytosis 2+
[2024-11-10 09:00] LABS: Polychromasia 1+
[2024-11-10 09:33] VITALS: BP 146/72; PULSE 74; RESP 16; TEMP 36.7; O2SAT 93
--- NOTE | 2024-11-10 09:42 | NURSING ---
per pt would like half of her am meds now and half with lunch.
[2024-11-10] MEDS: Senna/Docusate Sodium 1 Tablet 2 TABLET PO (11:07)
[2024-11-10] MEDS: Cholecalciferol (VIT D3) 25 MCG TABLET (1,000 UNITS) PO (11:07)
[2024-11-11] MEDS: Senna/Docusate Sodium 1 Tablet 2 TABLET PO ×2 (10:16→21:50)
[2024-11-11] MEDS: Cholecalciferol (VIT D3) 25 MCG TABLET (1,000 UNITS) PO (10:17)
[2024-11-11 16:00] VITALS: BP 122/56; PULSE 65; RESP 18; TEMP 36.8; O2SAT 94
[2024-11-11 20:00] VITALS: PULSE 58; RESP 18; O2SAT 96
[2024-11-12] MEDS: Senna/Docusate Sodium 1 Tablet 2 TABLET PO (10:35)
[2024-11-12] MEDS: Cholecalciferol (VIT D3) 25 MCG TABLET (1,000 UNITS) PO (10:35)
[2024-11-12 16:00] VITALS: BP 117/61; PULSE 55; RESP 18; TEMP 36.9; O2SAT 95
--- NOTE | 2024-11-13 00:03 | NURSING ---
Pt states she does not want any medications before breakfast despite medication education.
[2024-11-13 06:30] LABS: Hematocrit 25.3 % (37-47); Hemoglobin 8.6 g/dL (12.0-15.0)
[2024-11-13 08:56] VITALS: BP 129/55; PULSE 72; RESP 17; TEMP 36.2; O2SAT 96
[2024-11-13] MEDS: Senna/Docusate Sodium 1 Tablet 2 TABLET PO ×2 (09:00→21:00)
[2024-11-13] MEDS: Cholecalciferol (VIT D3) 25 MCG TABLET (1,000 UNITS) PO (09:00)
[2024-11-13 19:43] VITALS: PULSE 58; RESP 16; O2SAT 97
--- NOTE | 2024-11-13 19:49 | PCM.TCUNOT ---
Subjective Subjective Patient seen, examined for regulatory visit. She has no new complaints. She is sitting in recliner with her left leg elevated. She appears bored. She is resigned to going to [facility] once insurances cuts her. 11/01/2024 Friend EGD: Impression: - Normal esophagus. - Mild Schatzki ring. - Chronic gastritis. Biopsied. - Non-bleeding duodenal ulcer with no stigmata of bleeding. Biopsied. Objective Data Objective Data Vital Signs: Vital Signs Temp Pulse Resp BP Pulse Ox O2 Del Method 97.2 F L 72 17 129/55 H 96 Room Air 11/13/24 08:56 11/13/24 08:56 11/13/24 08:56 11/13/24 08:56 11/13/24 08:56 11/13/24 08:56 Oxygen Delivery Method Room Air Weight: 89.49 kg Body Mass Index (BMI) 32.8 Intake & Output: Intake and Output for Last 24 Hours 11/11/24 11/12/24 11/13/24 23:59 23:59 23:59 Intake Total 388 / 388 360 / 360 480 / 480 Balance 388 / 388 360 / 360 480 / 480 Lab / Micro Data 11/13/24 06:01 11/10/24 07:09 Labs: Laboratory Results - last 24 hr 11/13/24 06:01: Hgb 8.6 L, Hct 25.3 L Micro: Microbiology 11/13/24 05:16 Nasal Secretion SARS-CoV-2 Antigen (Rapid) - Final 11/11/24 05:04 Nasal Secretion SARS-CoV-2 Antigen (Rapid) - Final 11/09/24 05:42 Nasal Secretion SARS-CoV-2 Antigen (Rapid) - Final 10/31/24 03:40 Stool Stool Occult Blood (BREA) - Final Occult Blood Positive Physical Exam Const alert General Appearance: cooperative HEENT normocephalic Eyes PERRL and EOMs intact bilaterally Neck supple, no JVD and no carotid bruits Resp normal respiratory effort, normal air movement and clear to auscultation bilaterally Cardio regular rate and regular rhythm GI normal to inspection, nondistended, normoactive bowel sounds, non-tender and non-distended Extremity normal capillary refill Extremity Narrative: Left lower extremity cast. General Extremity: Negative for edema Skin no rashes or lesions noted General Skin Exam: no breakdown Psych affect normal Appearance: appropriate Assessment & Plan Assessment/Plan (1) Debility: (2) Status post total left knee replacement: (3) Essential (primary) hypertension: (4) Kidney stones: (5) Myeloproliferative disorder: (6) Hypothyroidism: (7) Vitamin D deficiency: PLAN: Plan 79 year old female with below past medical history hospitalized for left total knee replacement, removal left tibial nail, removal 4 interlocking screws 10/16/[address] Machuca, postoperative course complicated by acute left distal tibial fracture, nausea, vomiting, hypotension, constipation, admitted to TCU with debility, here for rehabilitation, strengthening, prior to discharge home alone. Debility - PT/OT. Pain - Tylenol 1000mg q8, Oxycodone 5-10mg q4 prn. Bowel - senna/colace 2 tablets bid, Magnesium citrate 300mL daily prn. Adult immunization - Administer pneumonia vaccine, covid vaccine, flu vaccine as appropriate. DVT prophylaxis - Aspirin 81mg bid thru 11/18/2024. Hypertension - Atenolol 25mg daily. Vitamin D deficiency - D3 25mcg daily. Gastric ulcer - Pantoprazole 40mg bid thru 01/30/2025, Sucralfate 1gm bid. Folate deficiency - Folic acid 1mg daily. Myeloproliferative disorder - Hydrea 1000mg 5 days/week. Hypothyroidism - Levothyroxine 50mcg daily. Nausea - Zofran 4mg q6 prn. Skin irritation - Calmoseptine topical bid. Tinea Corporis - Nystatin topical bid. The following psychotropic medication is being started or the dose in being increased: Citalopram 20mg daily. Psychotropic medication therapy is indicated for a diagnosis of: Anxiety. In my professional judgement, medication is necessary because the resident?s symptoms cause significant distress to the resident or a danger to the resident or others. Evaluation for underlying causes including medical illness and pain has been considered. The benefits of the medication are felt to outweigh potential harm. Nonpharmacologic/behavior interventions have been attempted but have not been effective or nonpharmacologic interventions are contraindicated for this patient. Potential benefits and risks of treatment and alternatives have been reviewed with resident/family and the resident/family have accepted psychotropic medication treatment. Please see nursing documentation. The following psychotropic medication is being started or the dose in being increased: Lorazepam 0.5mg po q4 prn. Psychotropic medication therapy is indicated for a diagnosis of: Anxiety. In my professional judgement, medication is necessary because the resident?s symptoms cause significant distress to the resident or a danger to the resident or others. Evaluation for underlying causes including medical illness and pain has been considered. The benefits of the medication are felt to outweigh potential harm. Nonpharmacologic/behavior interventions have been attempted but have not been effective or nonpharmacologic interventions are contraindicated for this patient. Potential benefits and risks of treatment and alternatives have been reviewed with resident/family and the resident/family have accepted psychotropic medication treatment. Please see nursing documentation.
[2024-11-14 08:50] VITALS: BP 149/70; PULSE 64; RESP 17; TEMP 36.9; O2SAT 96
[2024-11-14] MEDS: Cholecalciferol (VIT D3) 25 MCG TABLET (1,000 UNITS) PO (08:54)
[2024-11-14] MEDS: Senna/Docusate Sodium 1 Tablet 2 TABLET PO ×2 (08:54→21:40)
--- NOTE | 2024-11-14 14:23 | CASEMGMT ---
Social Work IDT reporting pt is beginning to plateau and ready to set DC date, as pt is unable to make significant progress until [facility]BS. STELLA spoke with pt to update and inquire about plan. STELLA offered for pt to remain in TCU private pay or DC to [facility], if beds are available. STELLA clarified pt will be nonskilled at [facility] and therapy will be about 2-3x/wk under part B benefit. Remaining in TCU is up to 5x/wk of therapy, but no part B coverage. Pt elects to remain in TCU private pay and take it month by month to determine long-term plan. STELLA confirmed and updated W. STELLA will notify pt when a LCD has been issued. Ariadne Schafer METHODS STUDY ANALYST ONLINE PROJECT MANAGER
[2024-11-15 06:04] LABS: Hematocrit 26.1 % (37-47); Hemoglobin 8.8 g/dL (12.0-15.0)
[2024-11-15] MEDS: Senna/Docusate Sodium 1 Tablet 2 TABLET PO (08:43)
[2024-11-15] MEDS: Cholecalciferol (VIT D3) 25 MCG TABLET (1,000 UNITS) PO (08:43)
[2024-11-15] MEDS: Magnesium Citrate 300 ML PO ×2 (13:14→20:35)
--- NOTE | 2024-11-15 14:07 | CASEMGMT ---
Social Work Nursing notified request from pt and friend for this worker to meet in pt's room. SW presented to pt's room, introduced self and role. Woman sitting on the bed introduced herself as pt's friend, but gave no name. Friend provided update to pt's DC plan, instead of paying private on TCU, to DC to [facility]. Friend stated she spoke with Breanna, Fly Raiser Lockstitch at [facility], and there is a room available currently, pt would get more and better therapy at [facility] than at [facility]. SW corrected that the amount of therapy will differ between each facility. i.e. [facility]'s rate is all inclusive, with therapy 5x/wk, whereas, [facility] it would be part B therapy which is typically 2-3x/wk. SW did not dispute the quality of therapy at either facility. Friend was argumentative and corrected this worker stating she spoke with Breanna and was given this information directly, but I can see you don't agree with that. SW stated this worker will not argue with the friend, and it is patient's decision which facility she chooses to remain, and this worker will assist with either option. Pt and friend conversed further. Pt prefers [facility]. Friend inquired about reimbursement from previously paying privately for TCU. SW explained that refund was stopped, and it can be restarted but it may take up to 90 days. Friend replied, well it is a business and they do like to keep their money as long as possible. SW corrected that is not accurate and the billing process takes time, though it may come sooner. SW redirected to placing referral back with [facility] and will update pt if there are beds available. Pt to await outcome. - STELLA message Breanna at [facility] via [employer] to notify of conversation and contents, clarified pt would be cut from skilled services at DC, admit private pay with part B therapies, inquired of bed availability. Breanna replied and will review beds and notify this worker when/if a bed becomes available. Anticipated DC by week of 11/27. SW will not start refund process with [facility] yet in case [facility] does not have a bed and will still need to remain private pay for an amount of time. SW will continue to follow. Ariadne Schafer FORGE SHOP SUPERVISOR QA AUTOMATION ARCHITECT
[2024-11-15 19:27] VITALS: PULSE 52; RESP 16; O2SAT 95
--- NOTE | 2024-11-15 19:41 | NURSING ---
Addendum entered by Benson Plata 11/16/24 00:00: Administered mag citrate per order. Pt had large BM results. Original Note: Notified Dr. Emery of pt not having BM since 11/10/24. Mag citrate ineffective. Per report, pt vomited 50 mL of mag citrate after administration. Pt c/o nausea. Abdomen distended and hypoactive BS x4 quadrants on assessment. New orders to repeat mag citrate. If mag citrate ineffective, new order to administer soap suds enema.
--- NOTE | 2024-11-15 20:39 | NURSING ---
Administered HS medications at this time per pt request
[2024-11-15 20:42] VITALS: BP 175/85; PULSE 69; RESP 20; TEMP 36.9; O2SAT 96
[2024-11-16 00:54] VITALS: PULSE 71; RESP 18; O2SAT 96
[2024-11-16] MEDS: Senna/Docusate Sodium 1 Tablet 2 TABLET PO ×2 (09:13→20:29)
[2024-11-16] MEDS: Cholecalciferol (VIT D3) 25 MCG TABLET (1,000 UNITS) PO (09:13)
[2024-11-16 15:59] VITALS: BP 135/75; PULSE 68; RESP 18; TEMP 36.6; O2SAT 96
[2024-11-17 07:16] LABS: Hematocrit 26.7 % (37-47); Hemoglobin 8.9 g/dL (12.0-15.0); Immature Granulocytes Count 0.020 X10^3/uL (0.0-0.0); Mean Corp Hgb Conc 33.3 g/dL (32-36); Mean Corpuscular Volume 114.1 fL (81-99); Mean Platelet Vol. 9.8 fl (6.2-12.0); NRBC Flagged by Analyzer 0 % (0-5); POSITIVE MORPHOLOGY YES; Platelet Count 218 K/mm3 (150-450); RBC Distribution Width CV 17.0 % (11.6-14.6); RBC Distribution Width SD 71.7 fl (35.1-43.9); Red Blood Count 2.34 M/mm3 (4.2-5.4); White Blood Count 4.1 K/mm3 (4.4-11.0)
[2024-11-17 07:22] LABS: Differential Indicated SCAN CRITERIA MET
[2024-11-17 07:36] LABS: Anion Gap 11 (5-15); BUN 15 mg/dL (4-19); BUN/Creat Ratio 14.3 RATIO (10-20); Calcium,Total 8.9 mg/dL (7.6-11.0); Carbon Dioxide 23.8 mmol/L (21.0-32.0); Chloride 101 mmol/L (98-108); Estimated Creatinine Clearance 47.80 ml/min (50-250); Glucose 82 mg/dL (70-99); Potassium 3.8 mmol/L (3.3-5.1)
[2024-11-17 07:52] VITALS: BP 169/77; PULSE 67; RESP 17; TEMP 36.8; O2SAT 96
[2024-11-17] MEDS: Senna/Docusate Sodium 1 Tablet 2 TABLET PO ×2 (07:55→19:47)
[2024-11-17] MEDS: Cholecalciferol (VIT D3) 25 MCG TABLET (1,000 UNITS) PO (07:56)
[2024-11-17 08:00] LABS: Anisocytosis 1+
[2024-11-17 19:59] VITALS: PULSE 62; RESP 16; O2SAT 95
[2024-11-18 09:19] VITALS: BP 131/57; PULSE 63; RESP 16; TEMP 37; O2SAT 95
[2024-11-18] MEDS: Cholecalciferol (VIT D3) 25 MCG TABLET (1,000 UNITS) PO (09:24)
[2024-11-18] MEDS: Senna/Docusate Sodium 1 Tablet 2 TABLET PO (20:12)
--- NOTE | 2024-11-18 20:15 | NURSING ---
hs meds administered at this time per pt. request. Pt. c/o 10/29 pain to LLE. Ice ineffective per pt., repositioning ineffective, offer to move from recliner to Bed declined, distraction offered and ineffective. Non-pharmacologic interventions ineffective, patient states I want my Oxy. PRN Oxy administered at this time per pt. request. Encouraged to sleep in bed to promote skin integrity and comfort, educated on risks of skin breakdown if sleeps in chair as pt. stated is preference. Patient verbalizes understanding, states I want to sleep in my chair. Denies further requests at this time. Call light and personal items within reach.
[2024-11-19 08:09] VITALS: BP 155/75; PULSE 62; RESP 17; TEMP 36.9; O2SAT 95
[2024-11-19] MEDS: Cholecalciferol (VIT D3) 25 MCG TABLET (1,000 UNITS) PO (08:15)
[2024-11-19] MEDS: Senna/Docusate Sodium 1 Tablet 2 TABLET PO (08:15)
[2024-11-19 21:29] VITALS: PULSE 60; RESP 16; O2SAT 98
[2024-11-20] MEDS: Cholecalciferol (VIT D3) 25 MCG TABLET (1,000 UNITS) PO (10:24)
[2024-11-20] MEDS: Magnesium Citrate 300 ML PO (12:52)
[2024-11-20 13:35] VITALS: BP 158/80; PULSE 60; RESP 18; TEMP 36.6; O2SAT 94
[2024-11-20 21:34] VITALS: PULSE 71; RESP 18; O2SAT 98
[2024-11-20] MEDS: Senna/Docusate Sodium 1 Tablet 2 TABLET PO (21:38)
[2024-11-21 00:31] VITALS: PULSE 65; RESP 16; O2SAT 96
--- NOTE | 2024-11-21 04:49 | NURSING ---
Pt complaining of soreness to buttocks. Pt sleeping in recliner. Offered to transfer pt to bed to offload pressure of buttocks several times throughout shift. Pt declined. Education provided to pt regarding skin breakdown/redness on bottom. Nonreceptive to education. Call light within reach. Pt declines need for further assistance at this time.
[2024-11-21 08:21] VITALS: BP 130/60; PULSE 74; RESP 17; TEMP 36.8; O2SAT 95
[2024-11-21] MEDS: Cholecalciferol (VIT D3) 25 MCG TABLET (1,000 UNITS) PO (08:23)
[2024-11-21 14:00] VITALS: BMI 31.4
[2024-11-21] MEDS: Senna/Docusate Sodium 1 Tablet 2 TABLET PO (20:27)
[2024-11-22] MEDS: Cholecalciferol (VIT D3) 25 MCG TABLET (1,000 UNITS) PO (09:10)
[2024-11-22] MEDS: Senna/Docusate Sodium 1 Tablet 2 TABLET PO ×2 (09:10→21:02)
[2024-11-22 10:00] VITALS: BP 96/49; PULSE 62; RESP 16; TEMP 36.7; O2SAT 95
[2024-11-23 09:49] VITALS: BP 129/61; PULSE 72; RESP 18; TEMP 36.7; O2SAT 95
[2024-11-23] MEDS: Cholecalciferol (VIT D3) 25 MCG TABLET (1,000 UNITS) PO (09:53)
--- NOTE | 2024-11-23 10:15 | NURSING ---
pt assisted to bed x2 SPT for CPM. HOB elevated to 45. pt comfortable, pain medication given per pt request. CPM set 0 extension 90 flexion. doing well. call light in pt hand.
--- NOTE | 2024-11-23 10:22 | NURSING ---
Ensure discontinued per pt request, refusing. states it is making her sick especially with my medications.
--- NOTE | 2024-11-23 14:21 | NURSING ---
pt used CPM with therapy this afternoon, done well. pt assisted back to chair from bed x2 SPT with sx shoe on LT foot/cast.
[2024-11-23 17:08] VITALS: PULSE 55; RESP 16; O2SAT 95
[2024-11-23] MEDS: Senna/Docusate Sodium 1 Tablet 2 TABLET PO (20:36)
--- NOTE | 2024-11-24 06:57 | NURSING ---
CPM offered per order, patient declines, states after breakfast. Patient states does not comply with CPM as ordered, states I just use it twice daily for 20 minutes. Inquired why patient does not comply with TID x1 hour as ordered, patient states I don't want to, I just want to do it for 20 minutes twice a day. Patient encouraged to use CPM as ordered, inquired if pain limiting use, patient states No it's not pain, I just like to do it twice for 20 minutes. Nursing communication in place for nurse to notify Dr. Machuca of patient non-compliance of CPM as ordered.
[2024-11-24] MEDS: Cholecalciferol (VIT D3) 25 MCG TABLET (1,000 UNITS) PO (09:23)
[2024-11-24 09:29] VITALS: BP 118/53; PULSE 64; RESP 18; TEMP 36.7; O2SAT 93
[2024-11-24] MEDS: Senna/Docusate Sodium 1 Tablet 2 TABLET PO ×2 (09:33→21:36)
[2024-11-24 10:13] LABS: Hematocrit 30.7 % (37-47); Hemoglobin 10.3 g/dL (12.0-15.0); Immature Granulocytes Count 0.020 X10^3/uL (0.0-0.0); Mean Corp Hgb Conc 33.6 g/dL (32-36); Mean Corpuscular Volume 115.0 fL (81-99); Mean Platelet Vol. 10.0 fl (6.2-12.0); NRBC Flagged by Analyzer 0 % (0-5); POSITIVE MORPHOLOGY YES; Platelet Count 239 K/mm3 (150-450); RBC Distribution Width CV 16.9 % (11.6-14.6); RBC Distribution Width SD 70.3 fl (35.1-43.9); Red Blood Count 2.67 M/mm3 (4.2-5.4); White Blood Count 4.2 K/mm3 (4.4-11.0)
[2024-11-24 10:18] LABS: Differential Indicated SCAN CRITERIA MET
[2024-11-24 10:35] LABS: Anion Gap 12 (5-15); BUN 12 mg/dL (4-19); BUN/Creat Ratio 11.3 RATIO (10-20); Calcium,Total 9.0 mg/dL (7.6-11.0); Carbon Dioxide 24.0 mmol/L (21.0-32.0); Chloride 100 mmol/L (98-108); Estimated Creatinine Clearance 46.75 ml/min (50-250); Glucose 119 mg/dL (70-99); Potassium 3.7 mmol/L (3.3-5.1)
[2024-11-24 10:52] LABS: Anisocytosis 2+; Differential Comment SCANNED
--- NOTE | 2024-11-24 10:52 | NURSING ---
Left VM updating Dr. Machuca's office that resident not tolerating CPM more than 20 minutes at a time, only twice a day at this time. Ask them to call back with any questions.
--- NOTE | 2024-11-24 12:38 | CASEMGMT ---
Social Work SW followed up with [facility] on beds and asked for DC 11/28. [facility] agreed and can accept. - SW spoke with pt at bedside. SW provided NOMNC to pt and educated to appeal rights. Pt verbalized understanding and denied appeal. Pt is agreeable to DC, though voiced I am going to miss you guys so much. you've all been great. SW wished pt well wishes. SW scheduled Physician's for w/c transport at 1100. Pt appreciative. PASRR completed in HENS. Plan: DC 11/28 to [facility], intermediate, private pay, part B therapies Ariadne Schafer MANAGER MECHANICAL FEEDER DRIVER
--- NOTE | 2024-11-24 13:51 | DS.PCM_ITS ---
Providers Date of Admission: 10/21/24 Primary Care Physician: Dr. Dago Emery MD Consultations 10/31/24 07:27 Consult: Gastroenterology Routine Consulting Provider: [facility] Reason for Consult: Anemia, +Hemoccult. EMERGENT Consult: No MD Notified: Yes Date Notified: 10/31/24 Time Notified: 09:24 Method of Notification: Text Reason For Visit: ERAS,ROBOTIC ASSIST, L TOTAL KNEE ORTHOPLAST Diagnosis Discharge Diagnosis (1) Debility: Status: Acute Code(s): R53.81 - Other malaise (2) Status post total left knee replacement: Status: Acute Code(s): Z96.652 - Presence of left artificial knee joint (3) Essential (primary) hypertension: Status: Acute Code(s): I10 - Essential (primary) hypertension (4) Kidney stones: Status: Acute Code(s): N20.0 - Calculus of kidney (5) Myeloproliferative disorder: Status: Chronic Code(s): D47.1 - Chronic myeloproliferative disease (6) Hypothyroidism: Status: Chronic Code(s): E03.9 - Hypothyroidism, unspecified (7) Vitamin D deficiency: Status: Acute Code(s): E55.9 - Vitamin D deficiency, unspecified Plan 79 year old female with below past medical history hospitalized for left total knee replacement, removal left tibial nail, removal 4 interlocking screws 10/16/[address] Machuca, postoperative course complicated by acute left distal tibial fracture, nausea, vomiting, hypotension, constipation, admitted to TCU with debility, here for rehabilitation, strengthening, prior to discharge home alone. * Debility - PT/OT. * Pain - Tylenol 1000mg q8, Oxycodone 5-10mg q4 prn. * Bowel - senna/colace 2 tablets bid, Magnesium citrate 300mL daily prn. * Adult immunization - Administer pneumonia vaccine, covid vaccine, flu vaccine as appropriate. * DVT prophylaxis - Aspirin 81mg bid thru 11/18/2024. * Hypertension - Atenolol 25mg daily. * Vitamin D deficiency - D3 25mcg daily. * Gastric ulcer - Pantoprazole 40mg bid thru 01/30/2025, Sucralfate 1gm bid. * Folate deficiency - Folic acid 1mg daily. * Myeloproliferative disorder - Hydrea 1000mg 5 days/week. * Hypothyroidism - Levothyroxine 50mcg daily. * Nausea - Zofran 4mg q6 prn. * Skin irritation - Calmoseptine topical bid. * Tinea Corporis - Nystatin topical bid. * The following psychotropic medication is being started or the dose in being increased: Citalopram 20mg daily. Psychotropic medication therapy is indicated for a diagnosis of: Anxiety. In my professional judgement, medication is necessary because the resident?s symptoms cause significant distress to the resident or a danger to the resident or others. Evaluation for underlying causes including medical illness and pain has been considered. The benefits of the medication are felt to outweigh potential harm. Nonpharmacologic/behavior interventions have been attempted but have not been effective or nonpharmacologic interventions are contraindicated for this patient. Potential benefits and risks of treatment and alternatives have been reviewed with resident/family and the resident/family have accepted psychotropic medication treatment. Please see nursing documentation. The following psychotropic medication is being started or the dose in being increased: Lorazepam 0.5mg po q4 prn. Psychotropic medication therapy is indicated for a diagnosis of: Anxiety. In my professional judgement, medication is necessary because the resident?s symptoms cause significant distress to the resident or a danger to the resident or others. Evaluation for underlying causes including medical illness and pain has been considered. The benefits of the medication are felt to outweigh potential harm. Nonpharmacologic/behavior interventions have been attempted but have not been effective or nonpharmacologic interventions are contraindicated for this patient. Potential benefits and risks of treatment and alternatives have been reviewed with resident/family and the resident/family have accepted psychotropic medication treatment. Please see nursing documentation. Medications at Discharge Home Medications levothyroxine 50 mcg tablet (Levoxyl) 50 mcg PO DAILY thyroid 08/04/13 folic acid 1 mg tablet 1 mg PO BREAKFAST supplement 20 days #0 tabs 10/21/24 acetaminophen 500 mg tablet 1,000 mg (2 x 500 mg) PO Q6H PRN PRN Pain Score 1-10 #0 tabs 11/24/24 atenolol 25 mg tablet 25 mg PO DAILY@0800 #0 tabs 11/24/24 cholecalciferol (vitamin D3) 25 mcg (1,000 unit) tablet 25 mcg PO DAILY #0 tabs 11/24/24 citalopram 20 mg tablet 20 mg PO DAILY #0 tabs 11/24/24 hydroxyurea 500 mg capsule 1,000 mg (2 x 500 mg) PO MoTuThFrSa@1000 #0 caps 11/24/24 lorazepam 0.5 mg tablet 0.5 mg PO Q4H PRN PRN Anxiety/Restlessness/Sleep 3 days #18 tabs 11/24/24 magnesium citrate 300 ml PO DAILY PRN Constipation #0 mL 11/24/24 menthol 0.44 %-zinc oxide 20.6 % topical ointment (Calmoseptine) 1 applic topical BID #0 grams 11/24/24 nystatin 100,000 unit/gram topical powder 1 applic topical BID #0 grams 11/24/24 oxycodone 5 mg tablet 5 - 10 mg (1 - 2 x 5 mg) PO Q4H PRN PRN Pain Score 3-10 3 days #36 tabs 11/24/24 pantoprazole 40 mg tablet,delayed release 40 mg PO BID #0 tabs 11/24/24 sennosides 8.6 mg-docusate sodium 50 mg tablet (Stimulant Laxative Plus) 2 tab PO BID #0 tabs 11/24/24 sucralfate 1 gram tablet 1 g PO BID@0700,1600 #0 tabs 11/24/24 Hospital Course Operations - (See below.) Procedures EGD Summary of Care Provided Minutes Spent on Discharge: 35 Hospital Course: 79 year old female with below past medical history hospitalized for left total knee replacement, removal left tibial nail, removal 4 interlocking screws 10/16/[address] Machuca, postoperative course complicated by acute left distal tibial fracture, nausea, vomiting, hypotension, constipation, admitted to TCU with debility, here for rehabilitation, strengthening, prior to discharge home alone. 11/01/2024 Dr. Webb EGD: Impression: - Normal esophagus. - Mild Schatzki ring. - Chronic gastritis. Biopsied. - Non-bleeding duodenal ulcer with no stigmata of bleeding. Biopsied. Recommendation: - Return patient to referring hospital for ongoing care. - Resume previous diet. - Use Protonix (pantoprazole) 40 mg PO BID for 3 months. - Use sucralfate tablets 1 gram PO BID for 1 month. Discharge 11/28/2024 to [facility], [facility] [place], private pay, part B therapies. Physical Exam Const alert General Appearance: cooperative HEENT normocephalic Eyes PERRL and EOMs intact bilaterally Neck supple, no JVD and no carotid bruits Resp normal respiratory effort, normal air movement and clear to auscultation bilaterally Cardio regular rate and regular rhythm GI normal to inspection, nondistended, normoactive bowel sounds, non-tender and non-distended Extremity normal capillary refill Extremity Narrative: Left lower extremity cast. General Extremity: Negative for edema Skin no rashes or lesions noted General Skin Exam: no breakdown Psych affect normal Appearance: appropriate Weight / BMI Weight Weight: 85.638 kg Body Mass Index (BMI) 31.4 ABG / Lab / Microbiology Data 11/24/24 09:35 11/24/24 09:35 Laboratory: Laboratory Results - last 24 hr 11/24/24 09:35: WBC 4.2 L, RBC 2.67 L, Hgb 10.3 L, Hct 30.7 L, MCV 115.0 H, MCH 38.6 H, MCHC 33.6, RDW Std Deviation 70.3 H, RDW Coeff of Maury 16.9 H, Plt Count 239, MPV 10.0, Immature Gran % (Auto) 0.500, Neut % (Auto) 64.5, Lymph % (Auto) 27.0, [place] % (Auto) 5.3, Eos % (Auto) 2.2, Baso % (Auto) 0.5, Absolute Neuts (auto) 2.7, Absolute Lymphs (auto) 1.12, Nucleated RBC % 0, Differential Comment SCANNED, Anisocytosis 2+, Sodium 135, Potassium 3.7, Chloride 100, Carbon Dioxide 24.0, Anion Gap 12, BUN 12, Creatinine 1.02, Estim Creat Clear Calc 46.75 L, Est GFR (MDRD) Non-Af 55 L, BUN/Creatinine Ratio 11.3, Glucose 119 H, Calcium 9.0 Microbiology: Microbiology 11/13/24 05:16 Nasal Secretion SARS-CoV-2 Antigen (Rapid) - Final 11/11/24 05:04 Nasal Secretion SARS-CoV-2 Antigen (Rapid) - Final 11/09/24 05:42 Nasal Secretion SARS-CoV-2 Antigen (Rapid) - Final 10/31/24 03:40 Stool Stool Occult Blood (BREA) - Final Occult Blood Positive D/C Instructions Discharge Activity: Return to Normal Activity Weight Bearing Status: Toe touch weight bearing (Left lower extremity.) Call your doctor if you observe: Fever of 101 or Higher, Inability to urinate, Inability to have a bowel movement, Shortness of breath, Dizziness, Fainting spells, Swelling in the ankles, Chest pain and Uncontrolled pain DC O2, CPAP, BIPAP Needs Home O2 Discharge instructions: No Additional Instructions: Discharge 11/28/2024 to [facility], [facility] [place], private pay, part B therapies. Please Follow Up With: JOEY POTTS (ORTHO) When: As scheduled. Meaningful Use Info Meaningful Use Meaningful Use Diagnoses (Choose all that apply): None applicable Discharge Plan Admission Admit Date/Time: 10/21/24 14:09 Primary Reason for Your Visit: Debility. Attending Provider: Dago Emery Chi Primary Care Provider: Dago Emery Chi Instructions Additional Instructions / Restrictions: Discharge 11/28/2024 to [facility], [facility] [place], private pay, part B therapies. Discharge Orders/Prescriptions Prescriptions: New acetaminophen 500 mg Tablet 1,000 mg PO Q6H PRN PRN (Reason: Pain Score 1-10) Qty: 0 0RF atenolol 25 mg Tablet 25 mg PO DAILY@0800 Qty: 0 0RF cholecalciferol (vitamin D3) 25 mcg (1,000 unit) Tablet 25 mcg PO DAILY Qty: 0 0RF hydroxyurea 500 mg Capsule 1,000 mg PO MoTuThFrSa@1000 Qty: 0 0RF citalopram 20 mg Tablet 20 mg PO DAILY Qty: 0 0RF magnesium citrate Solution 300 ml PO DAILY PRN (Reason: Constipation) Qty: 0 0RF menthol-zinc oxide [Calmoseptine] 0.44-20.6 % Ointment 1 applic topical BID Qty: 0 0RF Protocol: *Topical Application Instructions APPLICATION INSTRUCTIONS: bilateral buttocks sennosides-docusate sodium [Stimulant Laxative Plus] 8.6-50 mg Tablet 2 tab PO BID Qty: 0 0RF pantoprazole 40 mg Tablet,Delayed Release (Dr/Ec) 40 mg PO BID Qty: 0 0RF nystatin 100,000 unit/gram Powder 1 applic topical BID Qty: 0 0RF Protocol: *Topical Application Instructions APPLICATION INSTRUCTIONS: Apply to areas of redness sucralfate 1 gram Tablet 1 g PO BID@0700,1600 Qty: 0 0RF lorazepam 0.5 mg Tablet 0.5 mg PO Q4H PRN PRN (Reason: Anxiety/Restlessness/Sleep) 3 Days Qty: 18 0RF oxycodone 5 mg Tablet 5 - 10 mg PO Q4H PRN PRN (Reason: Pain Score 3-10) 3 Days Qty: 36 0RF Continued levothyroxine [Levoxyl] 50 MCG tablet 50 mcg PO DAILY Patient Comments: THYROID folic acid 1 mg Tablet 1 mg PO BREAKFAST 20 Days Qty: 0 0RF Discontinued losartan 100 MG tablet 100 mg PO DAILY Patient Comments: take 1 tablet by mouth once daily amlodipine 5 MG tablet 5 mg PO DAILY cholecalciferol (vitamin D3) 1,000 UNIT tablet 1,000 unit PO DAILY atenolol 50 mg Tablet 50 mg PO DAILY@0800 30 Days Qty: 30 0RF oxycodone 5 mg Tablet 5 - 10 mg PO Q4H PRN PRN (Reason: Pain Score) Rx Instructions: take 1 tab for pain score, 3-5, take 2 tabs for pain score 6-10 ondansetron 4 mg tablet,disintegrating 4 mg PO Q6H PRN (Reason: nausea and vomiting) citalopram [Celexa] 10 mg tablet 10 mg PO DAILY lorazepam [Ativan] 0.5 mg tablet 0.5 mg PO Q4H PRN (Reason: anxiety) senna-docusate sodium Tablet 2 tab PO BID magnesium citrate [Citrate of Magnesia] Solution 300 ml PO DAILY PRN (Reason: constipation) acetaminophen 500 mg Tablet 1,000 mg PO Q8 Qty: 0 0RF aspirin 81 mg capsule 81 mg PO BIDCM Qty: 60 0RF Rx Instructions: Take for 4 weeks postoperatively. famotidine 20 mg Tablet 20 mg PO DAILY 30 Days Qty: 0 0RF hydroxyurea 500 mg capsule 1,000 mg PO MOTUTHFRSA Qty: 100 4RF Rx Instructions: does not take on wednesdays or sundays Referrals / Follow Up: Geo Machuca MD [Med Staff - Active Staff] - 12/01/24 10:00 am Dago Emery Chi, MD [Primary Care Provider] - 11/22/24 3:00 pm (new patient/hospital follow up) Disposition Disposition (needs filled in before D/C Order can be placed): NonSkilled NH/Intermed Care
--- NOTE | 2024-11-24 14:01 | TREXTCAR_ITS ---
Diet Diet Order/Speech Therapy: INPATIENT Hospital Diet / Speech Therapy Order(s) 11/01/24 16:59 Diet: Regular - General Diet Comments: ALLERGIC TO RED DYE Routine Orders/Code Status Code Status: Full Code DC O2, CPAP, BIPAP needs Home O2 Discharge instructions: No Wound(s) left knee: Wound Type: Surgical Incision Dressing Change: Dry Sterile Dressing left medial knee: Wound Type: Surgical Incision Dressing Change: Dry Sterile Dressing left upper carpio: Wound Type: Surgical Incision left lower carpio: Wound Type: Surgical Incision left medial ankle: Wound Type: Surgical Incision Dressing Change: cast left elbow: Wound Type: Abrasion Therapies Weight Bearing: Toe-touch weight bearing (Left lower extremity.) Physical Therapy: Eval and Treat Occupational Therapy: Eval and Treat Problem/Diagnosis (1) Debility: Status: Acute Code(s): R53.81 - Other malaise (2) Status post total left knee replacement: Status: Acute Code(s): Z96.652 - Presence of left artificial knee joint (3) Essential (primary) hypertension: Status: Acute Code(s): I10 - Essential (primary) hypertension (4) Kidney stones: Status: Acute Code(s): N20.0 - Calculus of kidney (5) Myeloproliferative disorder: Status: Chronic Code(s): D47.1 - Chronic myeloproliferative disease (6) Hypothyroidism: Status: Chronic Code(s): E03.9 - Hypothyroidism, unspecified (7) Vitamin D deficiency: Status: Acute Code(s): E55.9 - Vitamin D deficiency, unspecified Comment: ON SUPPLEMENT Plan 79 year old female with below past medical history hospitalized for left total knee replacement, removal left tibial nail, removal 4 interlocking screws 10/16/[address] Machuca, postoperative course complicated by acute left distal tibial fracture, nausea, vomiting, hypotension, constipation, admitted to TCU with debility, here for rehabilitation, strengthening, prior to discharge home alone. * Debility - PT/OT. * Pain - Tylenol 1000mg q8, Oxycodone 5-10mg q4 prn. * Bowel - senna/colace 2 tablets bid, Magnesium citrate 300mL daily prn. * Adult immunization - Administer pneumonia vaccine, covid vaccine, flu vaccine as appropriate. * DVT prophylaxis - Aspirin 81mg bid thru 11/18/2024. * Hypertension - Atenolol 25mg daily. * Vitamin D deficiency - D3 25mcg daily. * Gastric ulcer - Pantoprazole 40mg bid thru 01/30/2025, Sucralfate 1gm bid. * Folate deficiency - Folic acid 1mg daily. * Myeloproliferative disorder - Hydrea 1000mg 5 days/week. * Hypothyroidism - Levothyroxine 50mcg daily. * Nausea - Zofran 4mg q6 prn. * Skin irritation - Calmoseptine topical bid. * Tinea Corporis - Nystatin topical bid. * The following psychotropic medication is being started or the dose in being increased: Citalopram 20mg daily. Psychotropic medication therapy is indicated for a diagnosis of: Anxiety. In my professional judgement, medication is necessary because the resident?s symptoms cause significant distress to the resident or a danger to the resident or others. Evaluation for underlying causes including medical illness and pain has been considered. The benefits of the medication are felt to outweigh potential harm. Nonpharmacologic/behavior interventions have been attempted but have not been effective or nonpharmacologic interventions are contraindicated for this patient. Potential benefits and risks of treatment and alternatives have been reviewed with resident/family and the resident/family have accepted psychotropic medi cation treatment. Please see nursing documentation. The following psychotropic medication is being started or the dose in being increased: Lorazepam 0.5mg po q4 prn. Psychotropic medication therapy is indicated for a diagnosis of: Anxiety. In my professional judgement, medication is necessary because the resident?s symptoms cause significant distress to the resident or a danger to the resident or others. Evaluation for underlying causes including medical illness and pain has been considered. The benefits of the medication are felt to outweigh potential harm. Nonpharmacologic/behavior interventions have been attempted but have not been effective or nonpharmacologic interventions are contraindicated for this patient. Potential benefits and risks of treatment and alternatives have been reviewed with resident/family and the resident/family have accepted psychotropic medication treatment. Please see nursing documentation. Allergies/Procedures Done in Hospital Allergies promethazine HCl (From Phenergan) Allergy (Severe, Verified 11/01/24 15:06) Other heightens engery (zing) Penicillins Adverse Reaction (Severe, Verified 11/01/24 15:06) Swelling red dye Adverse Reaction (Severe, Verified 11/01/24 15:06) Unknown mouth to droop Tetanus Vaccines and Toxoid Adverse Reaction (Intermediate, Verified 11/01/24 15:06) NEEDS FOLLOW-UP Procedures: EGD Type of Care/Length of Stay Estimated LOS: More Than 30 Days Type of Care Needed: Intermediate Rehab Potential: Good Prognosis: Good Additional Orders/Day of Discharge Additional Orders: part B therapies Day of Discharge: 11/28/24 Dietary and Speech Recommendations Dietitian Recommendations/Changes: Will continue liberal regular diet per res request. Will order 4 oz ensure plus high protein tid w/ medpass d/t wt loss since adm Trend weights as available. Follow Up Care Please Follow Up With: JOEY POTTS (ORTHO) Discharge Plan Admission Admit Date/Time: 10/21/24 14:09 Primary Reason for Your Visit: Debility. Attending Provider: Dago Emery Chi Primary Care Provider: Dago Emery Chi Instructions Additional Instructions / Restrictions: Discharge 11/28/2024 to [facility], [facility], private pay, part B therapies. Discharge Orders/Prescriptions Prescriptions: New acetaminophen 500 mg Tablet 1,000 mg PO Q6H PRN PRN (Reason: Pain Score 1-10) Qty: 0 0RF atenolol 25 mg Tablet 25 mg PO DAILY@0800 Qty: 0 0RF cholecalciferol (vitamin D3) 25 mcg (1,000 unit) Tablet 25 mcg PO DAILY Qty: 0 0RF hydroxyurea 500 mg Capsule 1,000 mg PO MoTuThFrSa@1000 Qty: 0 0RF citalopram 20 mg Tablet 20 mg PO DAILY Qty: 0 0RF magnesium citrate Solution 300 ml PO DAILY PRN (Reason: Constipation) Qty: 0 0RF menthol-zinc oxide [Calmoseptine] 0.44-20.6 % Ointment 1 applic topical BID Qty: 0 0RF Protocol: *Topical Application Instructions APPLICATION INSTRUCTIONS: bilateral buttocks sennosides-docusate sodium [Stimulant Laxative Plus] 8.6-50 mg Tablet 2 tab PO BID Qty: 0 0RF pantoprazole 40 mg Tablet,Delayed Release (Dr/Ec) 40 mg PO BID Qty: 0 0RF nystatin 100,000 unit/gram Powder 1 applic topical BID Qty: 0 0RF Protocol: *Topical Application Instructions APPLICATION INSTRUCTIONS: Apply to areas of redness sucralfate 1 gram Tablet 1 g PO BID@0700,1600 Qty: 0 0RF lorazepam 0.5 mg Tablet 0.5 mg PO Q4H PRN PRN (Reason: Anxiety/Restlessness/Sleep) 3 Days Qty: 18 0RF oxycodone 5 mg Tablet 5 - 10 mg PO Q4H PRN PRN (Reason: Pain Score 3-10) 3 Days Qty: 36 0RF Continued levothyroxine [Levoxyl] 50 MCG tablet 50 mcg PO DAILY Patient Comments: THYROID folic acid 1 mg Tablet 1 mg PO BREAKFAST 20 Days Qty: 0 0RF Discontinued losartan 100 MG tablet 100 mg PO DAILY Patient Comments: take 1 tablet by mouth once daily amlodipine 5 MG tablet 5 mg PO DAILY cholecalciferol (vitamin D3) 1,000 UNIT tablet 1,000 unit PO DAILY atenolol 50 mg Tablet 50 mg PO DAILY@0800 30 Days Qty: 30 0RF oxycodone 5 mg Tablet 5 - 10 mg PO Q4H PRN PRN (Reason: Pain Score) Rx Instructions: take 1 tab for pain score, 3-5, take 2 tabs for pain score 6-10 ondansetron 4 mg tablet,disintegrating 4 mg PO Q6H PRN (Reason: nausea and vomiting) citalopram [Celexa] 10 mg tablet 10 mg PO DAILY lorazepam [Ativan] 0.5 mg tablet 0.5 mg PO Q4H PRN (Reason: anxiety) senna-docusate sodium Tablet 2 tab PO BID magnesium citrate [Citrate of Magnesia] Solution 300 ml PO DAILY PRN (Reason: constipation) acetaminophen 500 mg Tablet 1,000 mg PO Q8 Qty: 0 0RF aspirin 81 mg capsule 81 mg PO BIDCM Qty: 60 0RF Rx Instructions: Take for 4 weeks postoperatively. famotidine 20 mg Tablet 20 mg PO DAILY 30 Days Qty: 0 0RF hydroxyurea 500 mg capsule 1,000 mg PO MOTUTHFRSA Qty: 100 4RF Rx Instructions: does not take on wednesdays or sundays Referrals / Follow Up: Geo Machuca MD [Med Staff - Active Staff] - 12/01/24 10:00 am Dago Emery Chi, MD [Primary Care Provider] - 11/22/24 3:00 pm (new patient/hospital follow up) Disposition Disposition (needs filled in before D/C Order can be placed): NonSkilled NH/Intermed Care
--- NOTE | 2024-11-24 15:27 | NURSING ---
Patient used CPM for 30 minutes after breakfast and 35 minutes after lunch this day. Tolerated well. Call light in reach and no further complaints.
--- NOTE | 2024-11-25 03:35 | NURSING ---
Patient requesting Tylenol at this time due to ankle pain. Tylenol administered. Will continue to monitor.
[2024-11-25] MEDS: Cholecalciferol (VIT D3) 25 MCG TABLET (1,000 UNITS) PO (08:16)
[2024-11-25] MEDS: Senna/Docusate Sodium 1 Tablet 2 TABLET PO (08:16)
[2024-11-25 08:21] VITALS: BP 136/63; PULSE 70; RESP 16; TEMP 36.7; O2SAT 97
--- NOTE | 2024-11-25 14:41 | NURSING ---
Pt refused the CPM at this time. Will try again later.
--- NOTE | 2024-11-25 16:01 | NURSING ---
Pt only able to tolerate 8 min of the CPM machine. PRN Oxy given and will recheck.
[2024-11-26] MEDS: Cholecalciferol (VIT D3) 25 MCG TABLET (1,000 UNITS) PO (09:24)
[2024-11-26 09:30] VITALS: BP 164/79; PULSE 72; RESP 16; TEMP 36.7; O2SAT 95
--- NOTE | 2024-11-26 14:00 | NURSING ---
Pt tolerated CPM for 30 min at 85 degrees.
--- NOTE | 2024-11-26 19:36 | NURSING ---
Pt completed CPM therapy for 30min @ 90 degrees pt tolerated well.
[2024-11-27] MEDS: Senna/Docusate Sodium 1 Tablet 2 TABLET PO ×2 (09:32→19:30)
[2024-11-27] MEDS: Cholecalciferol (VIT D3) 25 MCG TABLET (1,000 UNITS) PO (09:34)
[2024-11-27 16:00] VITALS: BP 134/63; PULSE 64; RESP 18; TEMP 37.1; O2SAT 95
[2024-11-27 19:30] VITALS: PULSE 66; RESP 18; O2SAT 97
[2024-11-28 06:50] VITALS: PULSE 67; RESP 16; O2SAT 96
[2024-11-28] MEDS: Cholecalciferol (VIT D3) 25 MCG TABLET (1,000 UNITS) PO (07:57)
[2024-11-28] MEDS: Senna/Docusate Sodium 1 Tablet 2 TABLET PO (07:58)
[2024-11-28 08:04] VITALS: BP 168/69; PULSE 69; RESP 16; TEMP 36.7; O2SAT 93
[2024-11-28 08:58] VITALS: BP 119/56
--- NOTE | 2024-11-28 09:00 | NURSING ---
Report called to [facility]I
--- NOTE | 2024-11-28 09:24 | CASEMGMT ---
Social Work SW completed BIMS () and PHQ-2 () for MDS assessment. Ariadne Schafer MUD ANALYSIS [employer] TOW OPERATOR
== END 2024-11-28 09:00 | disposition intermediate care facility (04) | DRG 560 ==
PROVIDERS: Admitting Provider Family Medicine Geriatric Medicine; PCP Family Medicine Geriatric Medicine; Visit Provider Family Medicine Geriatric Medicine
DX: Z47.1 Aftercare following joint replacement surgery (principal); D47.1 Chronic myeloproliferative disease; D62 Acute posthemorrhagic anemia; D47.3 Essential (hemorrhagic) thrombocythemia; K26.9 Duodenal ulcer, unspecified as acute or chronic, without hemorrhage or perforation; K22.2 Esophageal obstruction; D50.9 Iron deficiency anemia, unspecified; E03.9 Hypothyroidism, unspecified; I10 Essential (primary) hypertension; K21.9 Gastro-esophageal reflux disease without esophagitis; E78.5 Hyperlipidemia, unspecified; E53.8 Deficiency of other specified B group vitamins; E55.9 Vitamin D deficiency, unspecified; F41.9 Anxiety disorder, unspecified; K29.50 Unspecified chronic gastritis without bleeding; S82.302D Unspecified fracture of lower end of left tibia, subsequent encounter for closed fracture with routine healing; Z79.899 Other long term (current) drug therapy; Z96.652 Presence of left artificial knee joint; Z79.890 Hormone replacement therapy; X58.XXXD Exposure to other specified factors, subsequent encounter; Z79.82 Long term (current) use of aspirin; B35.4 Tinea corporis
CPT/HCPCS: 36415; 73560; 73610; 80048; 82274; 85014; 85018; 85025; 87811; 92526; 92610; 97110; 97162; 97166; 97530; 97535; 97542; 97802

== ENCOUNTER 2024-11-01 14:50 | Day surgery (SDC) | payer MEDICARE, OTHER, SELFPAY ==
[2024-11-01] VITALS (7 sets, daily range): BP systolic 109–170; BP diastolic 50–74; PULSE 55–64; RESP 14–16; TEMP 36.6–37.2; O2SAT 96–97; BMI 32.5
[2024-11-01] MEDS: Lactated Ringers 1,000 ML 15 ML IV (15:19)
--- NOTE | 2024-11-01 15:23 | PCM.HP.STD ---
[facility] - General General Date of Admission: 11/01/24 Date of Service: 11/01/24 Chief Complaint: Anemia [facility] Narrative BERNICE JUAN, is a 79 F who presents for: Anemia She currently is currently in rehab. 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 She has no known chronic infectious or inflammatory diseases. 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 She is currently taking hydroxyurea and [address] Machuca performed left total knee replacement, removal left tibial nail, removal of 4 interlocking screws. All postoperative course has been complicated by an acute distal tibial fracture. She remains on aspirin therapy and starting on doxycycline. I was asked to see her due to decreasing hemoglobin A1c provide with stools. Patient states she has had colonoscopy as part of recently but the last 5 years. [facility] Medical History Cardiology follow-up encounter Wears glasses Post-menopausal Depression Anxiety Ambulates with cane Walker as ambulation aid Arthritis Migraine headache History of IBS Non-smoker History of edema History of pain when walking Thrombocythemia Hx of fracture of leg Fracture of left hip requiring operative repair Vitamin D deficiency Osteopenia Melanoma in situ Hypothyroidism Hyperlipidemia Hypertension Home Medications ?Medication ?Instructions ?Recorded ?Last Taken ?Type levothyroxine 50 mcg tablet 50 mcg PO DAILY thyroid 08/04/13 10/31/24 History (Levoxyl) losartan 100 mg tablet 100 mg PO DAILY bp 06/06/18 11/01/24 History amlodipine 5 mg tablet 5 mg PO DAILY bp 07/21/18 11/01/24 History cholecalciferol (vitamin D3) 25 1,000 unit PO DAILY bones 10/26/19 10/31/24 History mcg (1,000 unit) tablet atenolol 50 mg tablet 50 mg PO DAILY@0800 blood 10/09/22 11/01/24 Rx pressure/heart rate 30 days #30 tabs hydroxyurea 500 mg capsule 1,000 mg (2 x 500 mg) PO 10/02/24 10/31/24 Rx MOTUTHFRSA chemo #100 caps acetaminophen 500 mg tablet 1,000 mg (2 x 500 mg) PO Q8 pain 10/21/24 10/31/24 Rx #0 tabs aspirin 81 mg capsule 81 mg PO BIDCM blood thinner #60 10/21/24 10/31/24 Rx caps famotidine 20 mg tablet 20 mg PO DAILY stomach 30 days #0 10/21/24 11/01/24 Rx tabs folic acid 1 mg tablet 1 mg PO BREAKFAST supplement 20 10/21/24 10/31/24 Rx days #0 tabs oxycodone 5 mg tablet 5 - 10 mg PO Q4H PRN PRN Pain Score 10/21/24 11/01/24 History citalopram 10 mg tablet (Celexa) 10 mg PO DAILY 11/01/24 11/01/24 History lorazepam 0.5 mg tablet (Ativan) 0.5 mg PO Q4H PRN anxiety 11/01/24 10/31/24 History magnesium citrate (Citrate of 300 ml PO DAILY PRN constipation 11/01/24 Unknown History Magnesia oral) ondansetron 4 mg disintegrating 4 mg PO Q6H PRN nausea and vomiting 11/01/24 10/31/24 History tablet senna-docusate sodium tablet 2 tab PO BID 11/01/24 10/31/24 History Allergy/AdvReac Type Severity Reaction Status Date / Time promethazine HCl (From Allergy Severe Other Verified 11/01/24 15:06 Phenergan) Penicillins AdvReac Severe Swelling Verified 11/01/24 15:06 red dye AdvReac Severe Unknown Verified 11/01/24 15:06 Tetanus Vaccines and Toxoid AdvReac Intermediate NEEDS Verified 11/01/24 15:06 FOLLOW-UP Family History Father Rheumatoid arthritis Surgical History History of total left knee replacement History of total right knee replacement Hx of right cataract extraction Hx of left cataract extraction History of breast lump removal History of hip surgery Social History household members: none housing: condominium Smoking Status: Never smoker second hand exposure: No alcohol intake: never substance use type: does not use justice/latter day: Hoahaoism seatbelt use: always do you feel safe at home: Yes ROS Constitutional Constitutional: Denies fatigue, fever(s), poor appetite, weight gain or weight loss Gastrointestinal Gastrointestinal: Denies belching, bloating, change in bowel habits, change in stool character, chewing difficulty, coffee ground emesis, constipation, cramping, diarrhea, dyspepsia, dysphagia, early satiety, excessive flatus, fecal incontinence, heartburn, hematemesis, hematochezia, hemorrhoids, loose stools, melena, nausea, odynophagia, rectal bleeding, tenesmus, vomiting or weight changes Vital Signs Vital Signs Vital Signs: 11/01/24 15:07 11/01/24 15:07 Temperature 99 F Temperature Source Temporal Pulse Rate 61 Respiratory Rate 16 Respiratory Pattern Normal Blood Pressure 170/74 H Blood Pressure Mean 106 Blood Pressure Source Monitor Blood Pressure Position Semi-Fowlers Blood Pressure Location Right Arm Pulse Ox 96 Oxygen Delivery Method Room Air Weight Weight: 196 lb Body Mass Index (BMI) 32.5 Physical Exam Const alert, oriented x3, no apparent distress and healthy appearing General Appearance: cooperative GI normal to inspection, nondistended, normoactive bowel sounds, soft to palpation, non-tender and non-distended Percussion: normal to percussion Rectal Exam: deferred Assessment & Plan Assessment/Plan (1) Anemia: PLAN: Labs: Laboratory Results - last 24 hr 10/31/24 06:55: Hgb 8.4 L, Hct 24.8 L Micro: Microbiology 10/31/24 03:40 Stool Stool Occult Blood (BREA) - Final Occult Blood Positive Assessment & Plan Assessment/Plan (1) Anemia: PLAN: 79-year-old with essential thrombocythemia on hydroxyurea and aspirin status post right knee replacement and ankle fracture. She currently is possibly having acute blood loss anemia. She should undergo an upper endoscopy and is a colonoscopy for acute GI blood loss. She was explained alternatives, benefits, risks including not withstanding bleeding, infection, sepsis, perforation, need for surgery and . She will have an ASA 3.
--- NOTE | 2024-11-01 15:39 | PCM.PRE.AN2 ---
ASA Classification* ASA Classification ASA Classification: 3 Assessment & Plan Anesthesia* Anesthesia Assessment Anesthesia Assessment: Discussed sedation and/or anesthesia options, risks, benefits, and alternatives with patient/parents/legal guardian/POA. Questions invited. The patient/parents/legal guardian/POA seems to understand and agrees to proceed with anesthesia plan. Reviewed the physical assessment, medical history, allergy history and patient home medications list prior to surgery/procedure/anesthetic and documented any changes. Performed airway and anesthesia risk assessments. Anesthesia Type Anesthesia Type: MAC History Source History Obtained from:: Patient and Chart Anesthesia Focused Assessment* Temperature: 99 F Pulse Rate: 61 Blood Pressure: 170/74 Respiratory Rate: 16 Pulse Ox: 96 Oxygen Delivery Method: Room Air Airway Assessment Mouth opens: >3 cm Mallampati Score: II Teeth Condition: Caps/Crowns and Missing Neck Range of motion (ROM): Limited ROM Labs Anesthesia Preop lab: CBC WBC 4.7 K/mm3 (4.4-11.0) 10/27/24 05:10/27/24 RBC 2.16 M/mm3 (4.2-5.4) L 10/27/24 05:10/27/24 Hgb 8.4 g/dL (12.0-15.0) L 10/31/24 06:55 10/31/24 Hct 24.8 % (37-47) L 10/31/24 06:55 10/31/24 Plt Count 230 K/mm3 (150-450) 10/27/24 05:29 10/27/24 CHEMISTRY Potassium 4.5 mmol/L (3.3-5.1) 10/27/24 05:29 10/27/24 Sodium 133 mmol/L (133-145) 10/27/24 05:10/27/24 Magnesium 2.3 mg/dL (1.5-2.2) H 07/31/24 14:22 07/31/24 BUN 28 mg/dL (4-19) H 10/27/24 05:10/27/24 Creatinine 1.16 mg/dL (0.70-1.20) 10/27/24 05:10/27/24 Glucose 85 mg/dL (70-99) 10/27/24 05:10/27/24 POC Glucose 120 mg/dL (74-106) H 10/19/24 12:59 10/19/24 TSH 1.470 uIU/mL (0.300-4.200) 07/31/24 14:22 07/31/24 COAG PT 12.6 SECONDS (11.7-14.9) 07/31/24 14:22 07/31/24 Pre-Assessment Diagnosis/Proposed Procedure Planned Operative Procedure(s): EGD Anesthesia History 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 When Was Last Pacemaker Check QUESTION #4 FULL TEXT: You/Your Family Experience fever (hyperthermia) with Anesthesia Last Oral Intake Last Oral intake: Last Oral Intake NPO since Meds taken in AM with sips of water? 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 Female Yes 11/01/24 15:07 HX of Motion Sickness No 11/01/24 15:07 HX of N/V After Surgery Yes 11/01/24 15:07 Non-Smoker Yes 11/01/24 15:07 Duration of Surgery greater No 11/01/24 15:07 than 60 minutes Number of Risk Factors 3 11/01/24 15:07 PONV Score Moderate Risk 11/01/24 15:07 Height & Weight Height & Weight: Anesthesia: Height & Weight Height 5 ft 5 in 11/01/24 15:07 Weight: 88.904 kg 11/01/24 15:07 Body Mass Index (BMI) 32.5 11/01/24 15:07 Respiratory Assessment Respiratory Assessment - yoga teacher: Respiratory Tract Infection Hx - yoga teacher Hx Respiratory Tract Infection No 11/01/24 15:07 STOP Sleep Apnea STOP Sleep Apnea - yoga teacher: STOP Sleep Apnea - yoga teacher Hx Hypertension Yes 11/01/24 15:07 Hx Sleep Apnea No 11/01/24 15:07 CPAP No 10/16/24 18:35 BIPAP No 10/04/24 13:47 Do you snore loudly (louder No 11/01/24 15:07 than talking or can be heard Do you often feel tired/ No 11/01/24 15:07 fatigued/ sleepy during daytime? Has anyone observed you stop No 11/01/24 15:07 breathing during sleep? STOP Results Negative 11/01/24 15:07 QUESTION #5 FULL TEXT : Do you snore loudly (louder than talking or can be heard through closed doors)? Tobacco Use History Tobacco Use History - yoga teacher: Tobacco Use History - yoga teacher Tobacco Use Smoking Status Never smoker 11/01/24 15:07 Hx Tobacco Use No 11/01/24 15:07 Years Smoking Packs Smoked per Day Smoking Cessation Date was within the last 15 years Hx Smoking Cessation Date Hx Smoking Cessation Counseling Hematologic Medial History Hematologic Hx - yoga teacher: Hematologic Medical Hx - fisher trawl line Hx of Blood Transfusion No 11/01/24 15:07 Hx of Transfusion in last 3 No 11/01/24 15:07 Months Date of Last Transfusion (if within last 3 months) Ever experience any problems No 11/01/24 15:07 with transfusion(s)? Specify any problems Hx of Preganancy in last 3 No 11/01/24 15:07 Months Nurse Filling Out Transfusion [email or web address] 11/01/24 15:07 & Questions: Date: 11/01/24 11/01/24 15:07 Time: 15:09 11/01/24 15:07 Patient unable to answer at this time (ie. confused, unrespo /Reproduction History /Reproductive History - yoga teacher: /Reproductive Hx- yoga teacher Hx Now Gestational Age (in weeks): EDC: Hx Hx Para Hx Section SAB No 10/04/24 13:47 Active Medications Active Medications: Current Medications Generic Name Dose Route Start Last Admin Trade Name Freq PRN Reason Stop Dose Admin Lactated Ringer's 1,000 mls @ 15 mls/hr 11/01/24 15:00 11/01/24 15:19 IV 15 mls/hr .Q48H KENDRA Administration PFSH Medical History Cardiology follow-up encounter Wears glasses Post-menopausal Depression Anxiety Ambulates with cane Walker as ambulation aid Arthritis Migraine headache History of IBS Non-smoker History of edema History of pain when walking Thrombocythemia Hx of fracture of leg Fracture of left hip requiring operative repair Vitamin D deficiency Osteopenia Melanoma in situ Hypothyroidism Hyperlipidemia Hypertension Home Medications ?Medication ?Instructions ?Recorded ?Last Taken ?Type levothyroxine 50 mcg tablet 50 mcg PO DAILY thyroid 08/04/13 10/31/24 History (Levoxyl) losartan 100 mg tablet 100 mg PO DAILY bp 06/06/18 11/01/24 History amlodipine 5 mg tablet 5 mg PO DAILY bp 07/21/18 11/01/24 History cholecalciferol (vitamin D3) 25 1,000 unit PO DAILY bones 10/26/19 10/31/24 History mcg (1,000 unit) tablet atenolol 50 mg tablet 50 mg PO DAILY@0800 blood 10/09/22 11/01/24 Rx pressure/heart rate 30 days #30 tabs hydroxyurea 500 mg capsule 1,000 mg (2 x 500 mg) PO 10/02/24 10/31/24 Rx MOTUTHFRSA chemo #100 caps acetaminophen 500 mg tablet 1,000 mg (2 x 500 mg) PO Q8 pain 10/21/24 10/31/24 Rx #0 tabs aspirin 81 mg capsule 81 mg PO BIDCM blood thinner #60 10/21/24 10/31/24 Rx caps famotidine 20 mg tablet 20 mg PO DAILY stomach 30 days #0 10/21/24 11/01/24 Rx tabs folic acid 1 mg tablet 1 mg PO BREAKFAST supplement 20 10/21/24 10/31/24 Rx days #0 tabs oxycodone 5 mg tablet 5 - 10 mg PO Q4H PRN PRN Pain Score 10/21/24 11/01/24 History citalopram 10 mg tablet (Celexa) 10 mg PO DAILY 11/01/24 11/01/24 History lorazepam 0.5 mg tablet (Ativan) 0.5 mg PO Q4H PRN anxiety 11/01/24 10/31/24 History magnesium citrate (Citrate of 300 ml PO DAILY PRN constipation 11/01/24 Unknown History Magnesia oral) ondansetron 4 mg disintegrating 4 mg PO Q6H PRN nausea and vomiting 11/01/24 10/31/24 History tablet senna-docusate sodium tablet 2 tab PO BID 11/01/24 10/31/24 History Allergy/AdvReac Type Severity Reaction Status Date / Time promethazine HCl (From Allergy Severe Other Verified 11/01/24 15:06 Phenergan) Penicillins AdvReac Severe Swelling Verified 11/01/24 15:06 red dye AdvReac Severe Unknown Verified 11/01/24 15:06 Tetanus Vaccines and Toxoid AdvReac Intermediate NEEDS Verified 11/01/24 15:06 FOLLOW-UP Family History Father Rheumatoid arthritis Surgical History History of total left knee replacement History of total right knee replacement Hx of right cataract extraction Hx of left cataract extraction History of breast lump removal History of hip surgery Social History household members: none housing: condominium Smoking Status: Never smoker second hand exposure: No alcohol intake: never substance use type: does not use justice/alevism: Alevism seatbelt use: always do you feel safe at home: Yes Review of Systems (Anesthesia) ROS Narrative System reviewed and no additional complaints, except as documented.
--- NOTE | 2024-11-01 16:13 | PCM.POST.ANE ---
Anesthesia: Postop Eval I Current Vital Signs Temperature: 97.9 F Pulse Rate: 55 Blood Pressure: 117/53 Respiratory Rate: 14 Pulse Ox: 97 Oxygen Delivery Method: Room Air Assessment Airway patent: Yes Spontaneous unlabored respirations: Yes Mental status: Awake and Calm nausea: No Vomiting: No Anesthesia Complication: No Fluid Hydration Crystalloid volume administer (ml): 200 Total IV fluid infused: 200 Progress Note Anesthesia document: Postop Eval 1 completed: Yes
--- NOTE | 2024-11-01 16:14 | OP.EGD_ITS ---
Patient Name: Diane Hassan Procedure Date: 11/01/2024 3:55 PM Date of : 1945 Age: 79 Procedure: Upper GI endoscopy Indications: Acute post hemorrhagic anemia, Iron deficiency anemia, Heme positive stool, Recent gastrointestinal bleeding Providers: Pio Webb DO Medicines: Monitored Anesthesia Care Patient Profile: This is an 79 year old female. Refer to note in patient chart for documentation of history and physical. Patient has symptoms. Complications: No immediate complications. Procedure: Pre-Anesthesia Assessment: - Prior to the procedure, a History and Physical was performed, and patient medications and allergies were reviewed. The patient is competent. The risks and benefits of the procedure and the sedation options and risks were discussed with the patient. All questions were answered and informed consent was obtained. Patient identification and proposed procedure were verified by the physician in the pre-procedure area. Mental Status Examination: alert and oriented. Airway Examination: normal oropharyngeal airway and neck mobility. Respiratory Examination: clear to auscultation. CV Examination: normal. ASA Grade Assessment: III - A patient with severe systemic disease. After reviewing the risks and benefits, the patient was deemed in satisfactory condition to undergo the procedure. The anesthesia plan was to use monitored anesthesia care (MAC). Immediately prior to administration of medications, the patient was re-assessed for adequacy to receive sedatives. The heart rate, respiratory rate, oxygen saturations, blood pressure, adequacy of pulmonary ventilation, and response to care were monitored throughout the procedure. The physical status of the patient was re-assessed after the procedure. After obtaining informed consent, the endoscope was passed under direct vision. Throughout the procedure, the patient's blood pressure, pulse, and oxygen saturations were monitored continuously. The gastroscope was introduced through the mouth, and advanced to the fourth part of the duodenum. Small bowel enteroscopy was deemed necessary. The upper GI endoscopy was accomplished without difficulty. The patient tolerated the procedure well. Scope In: 4:02:30 PM Scope Out: 4:05:27 PM Total Procedure Duration Time 0 hours 2 minutes 57 seconds Findings: The examined esophagus was normal. A mild Schatzki ring was found at the gastroesophageal junction. Patchy moderate inflammation characterized by serpentine ulcerations was found in the gastric body and in the gastric antrum. Biopsies were taken with a cold forceps for histology. Verification of patient identification for the specimen was done. Estimated blood loss was minimal. Biopsies were taken with a cold forceps for Helicobacter pylori testing. Verification of patient identification for the specimen was done. Estimated blood loss was minimal. One non-bleeding cratered duodenal ulcer with no stigmata of bleeding was found in the first portion of the duodenum. The lesion was 25 mm in largest dimension. Biopsies were taken with a cold forceps for histology. Verification of patient identification for the specimen was done. Estimated blood loss was minimal. Impression: - Normal esophagus. - Mild Schatzki ring. - Chronic gastritis. Biopsied. - Non-bleeding duodenal ulcer with no stigmata of bleeding. Biopsied. Recommendation: - Return patient to referring hospital for ongoing care. - Resume previous diet. - Use Protonix (pantoprazole) 40 mg PO BID for 3 months. - Use sucralfate tablets 1 gram PO BID for 1 month. - Continue present medications. Procedure Code(s): --- Professional --- 97157, Small intestinal endoscopy, enteroscopy beyond second portion of duodenum, not including ileum; with biopsy, single or multiple CPT copyright 2021 [employer]. All rights reserved. The codes documented in this report are preliminary and upon certified procedural coder review may be revised to meet current compliance requirements. Pio Webb DO 11/01/2024 4:13:52 PM This report has been signed electronically. Number of Addenda: 0 Note Initiated On: 11/01/2024 3:55 PM
--- NOTE | 2024-11-01 16:14 | OP.PROVAT_ITS ---
11/01/2024 Dago Emery MD [address] [place] [address] Re : Upper GI endoscopy procedure for Diane Hassan Dear Dr. Emery This procedure was performed on Friday, November 01, 2024. My impressions and recommendations are as follows: Impressions : - Normal esophagus. - Mild Schatzki ring. - Chronic gastritis. Biopsied. - Non-bleeding duodenal ulcer with no stigmata of bleeding. Biopsied. Recommendations : - Return patient to referring hospital for ongoing care. - Resume previous diet. - Use Protonix (pantoprazole) 40 mg PO BID for 3 months. - Use sucralfate tablets 1 gram PO BID for 1 month. - Continue present medications. My findings are described in the full procedure note, which is enclosed. If I can be of further assistance, please feel free to contact me at . Sincerely, Pio Friend, 11/01/2024 4:13:52 PM This report has been signed electronically.
--- NOTE | 2024-11-01 16:15 | EGD_PTH ---
PATIENT: BERNICE JUAN LOC: EN U#:[id number] AGE/SX: 79/F ROOM: RE11/01/[address]: Dr. Pio Webb DO : 1945 BED: DIS: 11/01/2024 SPEC #: [id number] RECD: 11/02/24 09:08 STATUS: FAITH REFlaquito #: [id number] NANCY: 11/01/24 16:[address]: Pio Webb DEPT: SURGICAL PATHOLOGY RECD BY: Tushar Patel ENTERED: 11/02/24 10:42 SP TYPE: EGD BIOPSY JOSSY DR: Dr. Dago Emery MD Tissues: A - Gastric mucous membrane B - Duodenum, NOS Procedures: Immunohistochemical Stains Surgery Specimen Level IV HEADER OPERATION: EGD PRE-OP DIAGNOSIS: Anemia TISSUE SUBMITTED: A- Gastric antrum biopsy, B- Duodenal ulcer biopsy MICROSCOPIC DIAGNOSIS A. Gastric antrum, biopsy: - Antral mucosa with features of reactive gastropathy. - IHC negative for H. pylori organisms. B. Duodenum, ulcer, biopsy: - Normal villous morphology with Kimani gland hyperplasia. - Negative for increased intraepithelial lymphocytes. MICROSCOPIC DESCRIPTION Slides are reviewed. All matched controls reacted appropriately. These tests were developed and their performance characteristics determined by [facility]. They may not have been cleared or approved by the U.S. Food and Drug Administration. The FDA has determined that such clearance or approval is not necessary.? The above immunohistochemical?markers are reviewed by the Pathologist. GROSS DESCRIPTION A. Received in fixative is one container labeled with the patient's name and designated Gastric antrum biopsy. The specimen consists of one irregular fragment of light reddy soft tissue that measures 0.8 cm. The specimen is totally submitted in one cassette. B. Received in fixative is one container labeled with the patient's name and designated Duodenal ulcer biopsy. The specimen consists of one irregular fragment of light reddy soft tissue that measures 0.3 cm. The specimen is totally submitted in one cassette. OK 11/02/2024 CPT:02222u7 ,[id number]
--- NOTE | 2024-11-01 16:33 | POSTOPAN2_ITS ---
Anesthesia Postop Eval I Sum Postop Eval Completion status Anesthesia document: Postop Eval 1 completed: Yes Anesthesia Postop Eval I Summary Anesthesia Postop Eval I Summary: Anesthesia Postop Eval I: Assessment Summary Airway patent Yes 11/01/24 16:13 POT [email or web address] Spontaneous unlabored Yes 11/01/24 16:13 POT BUILDER.[email or web address] respirations Mental status Awake,Calm 11/01/24 16:13 POT BUILDER.JBLOU nausea No 11/01/24 16:13 POT BUILDER.JBLOU Vomiting No 11/01/24 16:13 POT BUILDER.[email or web address] Anesthesia Postop Eval I: Fluid Summary Crystalloid volume administer 200 11/01/24 16:13 POT BUILDER.JBLOU (ml) Colloids volume administered ( ml) Blood Product volume administered (ml) Total IV fluid infused 200 11/01/24 16:13 POT [email or web address].[email or web address] Anesthesia Postop Eval I: Summary Notes Anesthesia Complication No 11/01/24 16:13 POT [email or web address] Anesthesia Complication Comment: Post-operative progress note Anesthesia: Postop Eval II Evaluation Mental status: Awake Pain Level: 0 nausea: No Vomiting: No
--- NOTE | 2024-11-01 16:33 | PCM.POSTANE2 ---
Anesthesia Postop Eval I Sum Postop Eval Completion status Anesthesia document: Postop Eval 1 completed: Yes Anesthesia Postop Eval I Summary Anesthesia Postop Eval I Summary: Anesthesia Postop Eval I: Assessment Summary Airway patent Yes 11/01/24 16:13 ENGINEERING INSPECTION ASSISTANT.[email or web address] Spontaneous unlabored Yes 11/01/24 16:13 ENGINEERING INSPECTION ASSISTANT.GONZALOLOU respirations Mental status Awake,Calm 11/01/24 16:13 ENGINEERING INSPECTION ASSISTANT.JBLOU nausea No 11/01/24 16:13 ENGINEERING INSPECTION ASSISTANT.JBLOU Vomiting No 11/01/24 16:13 ENGINEERING INSPECTION ASSISTANT.JBLOU Anesthesia Postop Eval I: Fluid Summary Crystalloid volume administer 200 11/01/24 16:13 ENGINEERING INSPECTION ASSISTANT.JBLOU (ml) Colloids volume administered ( ml) Blood Product volume administered (ml) Total IV fluid infused 200 11/01/24 16:13 ENGINEERING INSPECTION ASSISTANT.JBLOU Anesthesia Postop Eval I: Summary Notes Anesthesia Complication No 11/01/24 16:13 ENGINEERING INSPECTION ASSISTANT.JBLOU Anesthesia Complication Comment: Post-operative progress note Anesthesia: Postop Eval II Evaluation Mental status: Awake Pain Level: 0 nausea: No Vomiting: No
== END 2024-11-01 16:50 | disposition home or self-care (01) ==
LOC: EN 14:51 → AC 14:52
PROVIDERS: PCP Family Medicine Geriatric Medicine; Referring Provider Family Medicine Geriatric Medicine; Visit Provider Internal Medicine Gastroenterology
PROC: 0DJ08ZZ Inspection of Upper Intestinal Tract, Via Natural or Artificial Opening Endoscopic (ICD-10-PCS; CPT 43235; principal; 2024-11-01 16:10)
DX: K31.89 Other diseases of stomach and duodenum (principal); E66.01 Morbid (severe) obesity due to excess calories; D62 Acute posthemorrhagic anemia; K26.9 Duodenal ulcer, unspecified as acute or chronic, without hemorrhage or perforation; Z79.899 Other long term (current) drug therapy; E78.5 Hyperlipidemia, unspecified; I10 Essential (primary) hypertension; Z96.652 Presence of left artificial knee joint; K29.50 Unspecified chronic gastritis without bleeding; Z79.82 Long term (current) use of aspirin; D50.9 Iron deficiency anemia, unspecified; K22.2 Esophageal obstruction; Z79.890 Hormone replacement therapy
CPT/HCPCS: 44361; 88305; 88342; J2405

== ENCOUNTER → 2024-11-29 | Outpatient (REF) | payer MEDICARE, OTHER, SELFPAY ==
--- OUTSIDE RECORDS SUMMARY | 2024-11-29 04:30 | XMS RPT_ITS | CCD ---
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 Dago Nicole Primary Care Provider Rupert, Dr. Dago Nicole Referring Provider Dr. Umang Pate Attending Provider Rupert, Dr. Dago Nicole Primary Care Provider Rupert, Dr. Dago Nicole Referring Provider 1([facility])[phone] Peg LINING LAYER, LINING LAYER-C Carolyn Attending Provider Rupert, Dr. Dago Nicole Primary Care Provider Rupert, Dr. Dago Nicole Referring Provider Dr. Umang Pate Attending Provider Rupert COON, Dr. Dago Nicole Primary Care Provider Rupert COON, Dr. Dago Nicole Referring Provider Peg LINING LAYER-C, Carolyn Attending Provider Herlinda COON, Dr. Heck Attending Provider Rupert COON, Dr. Dago Nicole Attending Provider Dr. Omero Armas MD Attending Provider Herlinda COON, Dr. Heck Attending Provider Sven COON, Dr. Guardado Admit Provider Sven COON, Dr. Guardado Referring Provider [phone] Sven COON, Dr. Guardado Other Provider [phone] Dr. Saulo Bullock DO Attending Provider Ara UGALDE Dr. Vernon Other Provider Ambrosio COON, Dr. See Pulido Other Provider Ambrosio COON, Dr. See Pulido Attending Provider Sven COON, Dr. Guardado Attending Provider Wei COON, Dr. Black Other Provider 1([facility])[phone] Allen COON, Dr. Juliane Murguia Other Provider Wei COON, Dr. Black Attending Provider Rupert COON, Dr. Dago Nicole Admit Provider Rupert COON, Dr. Dago Nicole Other Provider 1([facility])[phone] Jon UGALDE, Dr. Suero Attending Provider Jon UGALDE, Dr. Suero Other Provider 1([facility])[phone] Saulo Bullock Attending Unavailable Saulo Bullock Consulting Unavailable Sven, Geo Referring Unavailable Sven, Geo Admitting Unavailable Rupert, Dago Chi Primary Care Unavailable See Valente Consulting Unavailable Sven, Geo Consulting Unavailable See Valente Attending Unavailable Rupert, Dago Chi Primary Care Unavailable Rupert, Dago Chi Referring Unavailable Omero Armas Attending Unavailable Rupert, Dago Chi Primary Care Unavailable Rupert, Dago Chi Referring Unavailable Herlinda, Umang Attending Unavailable Saulo Bullock Consulting Unavailable Sofia Carvajal Attending Unavailable Sven, Geo Referring Unavailable Sven, Geo Admitting Unavailable Rupert, Dago Chi Primary Care Unavailable Sofia Carvajal Consulting Unavailable Geo Rodriguez Consulting Unavailable Rupert, Dago Chi Primary Care Unavailable FriendPio Attending Unavailable FriendPio Consulting Unavailable Rupert, Dago Chi Referring Unavailable Rupert, Dago Chi Consulting Unavailable FriendPio Attending Unavailable Rupert, Dago Chi Referring Unavailable Rupert, Dago Chi Admitting Unavailable Rupert, Dago Chi Primary Care Unavailable Rupert, Dago Chi Primary Care Unavailable Rupert, Dago Chi Attending Unavailable Rupert, Dago Chi Attending Unavailable Rupert, Dago Chi Primary Care Unavailable SvenSudheeren Attending Unavailable Sven, Geo Referring Unavailable Rupert, Dago Chi Primary Care Unavailable Rupert, Dago Chi Referring Unavailable Isckarus, Aramour Attending Unavailable Rupert, Dago Chi Primary Care Unavailable Rupert, Dago Chi Referring Unavailable Rupert, Dago Chi Attending Unavailable Rupert, Dago Chi Primary Care Unavailable Rupert, Dago Chi Referring Unavailable Rupert, Dago Chi Attending Unavailable Jon Pio Attending Unavailable Rupert, Dago Chi Referring Unavailable Rupert, Dago Chi Primary Care Unavailable Rupert, Dago Chi Primary Care Unavailable Sofia Carvajal Consulting Unavailable Geo Rodriguez Attending Unavailable Geo Rodriguez Referring Unavailable Geo Rodriguez Admitting Unavailable Juliane Villa Consulting Unavailable Rupert, Dago Chi Referring Unavailable Omero Armas Attending Unavailable Rupert, Dago Chi Primary Care Unavailable Peg LINING LAYER, Carolyn Attending Unavailable Rupert, Dago Chi Referring Unavailable Rupert, Dago Chi Primary Care Unavailable Rupert, Dago Chi Primary Care Unavailable Rupert, Dago Chi Referring Unavailable Peg LINING LAYER, Carolyn Attending Unavailable Rupert COON, Dr. Dago Nicole Primary Care Provider [phone] Dr. Dago Emery MD, Chi Referring Provider Peg LINING LAYER-C, Carolyn Attending Provider Allergies Allergy Classification Reported Allergen(s) Allergy Type Date of Onset Reaction(s) Facility (13 sources) Contrast media; Translations: [red dye] Propensity to adverse reactions 2 Unknown [facility] Comment on above: mouth to droop (12 sources) Penicillins Propensity to adverse reactions 2 Swelling [facility] (13 sources) Promethazine; Translations: [promethazine HCl] Drug Allergy 2 Other [facility] Comment on above: david devi (zi ng) (12 sources) Tetanus Vaccines and Toxoid Propensity to adverse reactions 2 NEEDS FOLLOW-UP [facility] (1 source) Penicillins Drug allergy (disorder) 5 [facility] Rep[facility] (1 source) Tetanus Vaccines and Toxoid Drug allergy (disorder) 5 [facility] Medications Current Medications Medication Drug Class(es) Dates Sig (Normalized) Sig (Original) acetaminophen 500 mg oral tablet (14 sources) Start: 11-24-2024 take 2 tablets by mouth every six hours as needed for pain Acetaminophen 500 mg Tablet Active 1000 mg PO EVERY 6 HOURS NEEDED as needed for Pain Score 1-10 0 0 November 24, 2024 12:00am Start: 10-21-2024 End: 11-24-2024 take 2 tablets by mouth every eight hours Acetaminophen 500 mg Tablet Discontinued 1000 mg PO EVERY 8 HOURS 0 0 October 21, 2024 12:00am November 24, 2024 1:55pm pain Start: 10-04-2024 Acetaminophen 500 mg Tablet Active [...] 3000 mg Tylenol in a 24-hour period. atenolol 25 mg oral tablet (20 sources) beta-Adrenergic Elizabeth Start: 11-24-2024 take 1 tablet by mouth once daily Atenolol 25 mg Tablet Active 25 mg PO DAILY@0800 0 0 November 24, 2024 12:00am Start: 10-09-2022 End: 11-24-2024 take 1 tablet by mouth once daily Atenolol 50 mg Tablet Discontinued 50 mg PO DAILY@0800 30 30 0 October 09, 2022 12:00am November 24, 2024 1:55pm blood pressure/heart rate Start: 09-25-2022 End: 10-09-2022 take 1 tablet by mouth every twenty-four hours Atenolol 100 mg tablet Discontinued 100 mg PO Q24H September 25, 2022 12:00am October 09, 2022 3:33pm bp Start: 04-17-2014 take 100 mg by mouth once daily Atenolol Active 100 MG PO DAILY April 17, 2014 1:00am cholecalciferol 0.025 mg oral tablet (13 sources) Vitamin D Start: 11-24-2024 take 1 tablet by mouth once daily Cholecalciferol (Vitamin D3) 25 mcg (1,000 unit) Tablet Active 25 ug PO DAILY 0 0 November 24, 2024 12:00am Start: 10-26-2019 End: 11-24-2024 take 1 tablet by mouth once daily Cholecalciferol (Vitamin D3) 1,000 UNIT tablet Discontinued 1000 U PO DAILY October 26, 2019 12:00am November 24, 2024 1:55pm bones citalopram 20 mg oral tablet (3 sources) Serotonin Reuptake Inhibitor Start: 11-24-2024 take 1 tablet by mouth once daily Citalopram 20 mg Tablet Active 20 mg PO DAILY 0 0 November 24, 2024 12:00am Start: 11-01-2024 End: 11-24-2024 take 1 tablet by mouth once daily Citalopram (Celexa) 10 mg tablet Discontinued 10 mg PO DAILY November 01, 2024 12:00am November 24, 2024 1:55pm docusate sodium 50 mg / sennosides, intermediate 8.6 mg oral tablet (17 sources) Start: 11-24-2024 Sennosides-Doc usate Sodium (Stimulant Laxative Plus) 8.6-50 mg Tablet Active 2 {tbl} PO TWICE A DAY 0 0 November 24, 2024 12:00am Start: 09-25-2022 End: 07-31-2024 Sennosides-Docusate Sodium ( Stool Softener-Stimulant Laxat) 8.6-50 mg Tablet Discontinued 2 {tbl} PO BID@0800,2000 120 30 0 October 09, 2022 12:00am July 31, 2024 11:34am folic acid 1 mg oral tablet (3 sources) Start: 10-21-2024 take 1 tablet by mouth at breakfast Folic Acid 1 mg Tablet Active 1 mg PO WITH BREAKFAST 0 20 0 October 21, 2024 12:00am supplement hydroxyurea 500 mg oral capsule (20 sources) Antimetabolite Start: 06-20-2024 End: 07-31-2024 take 2 capsules by mouth once daily Hydroxyurea 500 mg capsule Discontinued 1000 mg PO .COMPLEX 120 0 June 27, 2024 5:07pm July 31, 2024 11:33am Essential thrombocythemia Essential (hemorrhagic) thrombocythemia 1,000 mg orally; Daily except for Sundays and Wednesdays Start: 05-07-2021 End: 11-24-2024 Hydroxyurea 500 mg Capsule A ctive 1000 mg PO MoTuThFrSa@1000 0 0 November 24, 2024 12:00am Start: 06-24-2020 End: 05-07-2021 take 2 tablets [...] SAT. NO MEDICATION ON WED & SUN. levothyroxine sodium 0.05 mg oral tablet (12 sources) l-Thyroxine Start: 08-04-2013 take 1 tablet by mouth once daily Levothyroxine (Levoxyl) 50 MCG tablet Active 50 ug PO DAILY August 04, 2013 12:00am thyroid LORazepam 0.5 mg oral tablet (4 sources) Benzodiazepine Start: 11-01-2024 End: 11-28-2024 take 1 tablet by mouth every four hours as needed for anxiety Lorazepam 0.5 mg tablet Active 0.5 mg PO EVERY 4 HOURS NEEDED as needed for Anxiety/Restlessn ess/Sleep 30 20 0 November 28, 2024 11:01am December 17, 2024 12:00am magnesium citrate 58.2 mg/ml oral solution (3 sources) Start: 11-01-2024 End: 11-24-2024 take 1 mL by mouth once daily as needed for constipation Magnesium Citrate Solution Active 300 mL PO DAILY as needed for Constipation 0 0 November 24, 2024 12:00am Menthol / Zinc Oxide (1 source) Start: 11-24-2024 Menthol-Zinc Oxide (Calmoseptine) 0.44-20.6 % Ointment Active 1 NMA TOPICAL TWICE A DAY 0 0 November 24, 2024 12:00am Please contact the information source for Protocol details. nystatin 100 unt/mg topical powder (1 source) Polyene Antifungal Start: 11-24-2024 Nystatin 100,000 unit/gram Powder Active 1 NMA TOPICAL TWICE A DAY 0 0 November 24, 2024 12:00am Please contact the information source for Protocol details. oxyCODONE hydrochloride 5 mg oral tablet (20 sources) Opioid Agonist Start: 11-28-2024 take 2 tablets by mouth every six hours as needed for pain Oxycodone 5 mg tablet Active 10 mg PO .every 6 hours as needed for Pain Score 3-10 40 20 0 November 28, 2024 December 17, 2024 12:00am Status post total left knee replacement Fracture of left hip requiring operative repair Presence of left artificial knee joint Start: 11-24-2024 End: 11-28-2024 take 5-10 mg by mouth every four hours as needed for pain Oxycodone 5 mg Tablet Discontinued 5 - 10 mg PO EVERY 4 HOURS NEEDED as needed for Pain Score 3-10 36 3 0 November 24, 2024 November 28, 2024 11:05am Status post total left knee replacement Fracture of left hip requiring operative repair Presence of left artificial knee joint Start: 10-21-2024 End: 10-21-2024 take 5-10 mg by mouth every four hours as needed for pain Oxycodone 5 mg Tablet Discontinued 5 - 10 mg PO EVERY 4 HOURS NEEDED as needed for Pain Score 4-10 42 7 0 October 21, 2024 October 21, 2024 1:58pm Status post total left knee replacement Presence of left artificial knee joint Start: 10-21-2024 End: 10-21-2024 take 5-10 mg by mouth every four hours as needed for pain Oxycodone 5 mg Tablet Discontinued 5 - 10 mg PO EVERY 4 HOURS NEEDED as needed for Pain Score 4-10 42 7 0 October 21, 2024 October 21, 2024 1:58pm Status post total left knee replacement Presence of left artificial knee joint Start: 10-21-2024 take 5-10 mg by mout h every four hours as needed for pain Oxycodone 5 mg Tablet Active 5 - 10 mg PO EVERY 4 HOURS NEEDED as needed for Pain Score 4-10 42 7 0 October 21, 2024 Status post total left knee replacement Presence of left artificial knee joint Start: 10-21-2024 End: 11-24-2024 Oxycodone 5 mg Tablet Discon tinued 5 - 10 mg PO EVERY 4 HOURS NEEDED as needed for Pain Score October 21, 2024 12:00am November 24, 2024 1:57pm take 1 tab for pain score, 3-5, take 2 tabs for pain score 6-10 Start: 09-25-2022 End: 05-05-2023 take 1 tablet by mouth every four hours as needed for pain Oxycodone 5 mg Tablet Discontinued 5 mg PO EVERY 4 HOURS NEEDED as needed for Pain Score 6-10 42 7 0 October 09, 2022 May 05, 2023 2:50pm Fracture of left hip requiring operative repair pantoprazole 40 mg delayed release oral tablet (1 source) Proton Pump Inhibitor Start: 11-24-2024 take 1 tablet by mouth twice daily Pantoprazole 40 mg Tablet,Delayed Release (Dr/Ec) Active 40 mg PO TWICE A DAY 0 0 November 24, 2024 12:00am sucralfate 1000 mg oral tablet (1 source) Aluminum Complex Start: 11-24-2024 take 1 tablet by mouth twice daily Sucralfate 1 gram Tablet Active 1 g PO BID@0700,1600 0 0 November 24, 2024 12:00am Completed/Discontinued Medications Medication Drug Class(es) Dates Sig (Normalized) Sig (Original) acetaminophen 325 mg / HYDROcodone bitartrate 5 mg oral tablet (12 sources) Opioid Agonist Start: 04-19-2014 End: 05-07-2014 [...] 2014 11:05am ALPRAZolam 0.5 mg oral tablet (12 sources) Benzodiazepine Start: 02-14-2014 End: 05-07-2014 take 1 tablet by mouth three times daily as needed for anxiety Alprazolam 0.5 MG tablet Discontinued 0.5 mg PO THREE TIMES A DAY as needed for Anxiety 30 0 February 14, 2014 1:42pm May 07, 2014 12:05pm amLODIPine 5 mg oral tablet (20 sources) Dihydropyridine Calcium Channel Elizabeth Start: 07-21-2018 End: 11-24-2024 take 1 tablet by mouth once daily Amlodipine 5 MG tablet Discontinued 5 mg PO DAILY July 21, 2018 12:00am November 24, 2024 1:55pm bp Start: 04-19-2014 End: 05-07-2014 take 1 tablet by mouth once daily Amlodipine 5 MG tablet Discontinued 5 mg PO DAILY 1 0 April 19, 2014 1:00am May 07, 2014 12:05pm aspirin 81 mg oral tablet (20 sources) Platelet Aggregation Inhibitor, Nonsteroidal Anti-inflammatory Drug Start: 10-21-2024 End: 11-24-2024 take 1 capsule by mouth twice daily at mealtime Aspirin 81 mg capsule Discontinued 81 mg PO TWICE DAILY WITH MEALS 60 0 October 21, 2024 12:00am November 24, 2024 1:55pm blood thinner Take for 4 weeks postoperatively. Start: 09-20-2024 [...] 21, 2018 12:00am November 04, 2021 1:59pm baclofen 10 mg oral tablet (7 sources) gamma-Aminobutyric Acid-ergic Agonist Start: 05-05-2023 End: 07-10-2024 take 1 tablet by mouth at bedtime Baclofen 10 mg tablet Discontinued 10 mg PO AT BEDTIME May 05, 2023 1:00am July 10, 2024 1:44pm doxycycline monohydrate 100 mg oral capsule (13 sources) Tetracycline-class Drug Start: 10-21-2024 End: 11-01-2024 take 1 capsule by mouth twice daily Doxycycline Monohydrate 100 mg Capsule Discontinued 100 mg PO TWICE A DAY October 21, 2024 12:00am November 01, 2024 12:30pm antibiotic Start: 10-21-2024 End: 10-21-2024 take 1 capsule by mouth every twelve hours Doxycycline Monohydrate 100 mg Capsule Discontinued 100 mg PO EVERY 12 HOURS 0 9 0 October 21, 2024 12:00am October 21, 2024 1:58pm Start: 09-25-2022 End: 10-09-2022 take 1 capsule by mouth twice daily Doxycycline Monohydrate 100 mg Capsule Discontinued 100 mg PO TWICE A DAY 28 14 0 September 25, 2022 12:00am October 09, 2022 3:33pm Antibiotic Take doxycycline for 2 weeks postoperatively famotidine 20 mg oral tablet (11 sources) Histamine-2 Receptor Antagonist Start: 10-21-2024 End: 11-24-2024 take 1 tablet by mouth once daily Famotidine 20 mg Tablet Discontinued 20 mg PO DAILY 0 30 0 October 21, 2024 12:00am November 24, 2024 1:55pm stomach Start: 09-25-2022 End: 07-31-2024 take 1 tablet by mouth once daily Famotidine 20 mg Tablet Discontinued 20 mg PO DAILY 0 0 September 25, 2022 12:00am July 31, 2024 11:32am reflux Take for 4 weeks postoperatively while on aspirin and meloxicam ferrous sulfate 325 mg oral tablet (3 sources) Start: 10-21-2024 End: 11-01-2024 Ferrous Sulfate (Ferosul) 325 mg (65 mg iron) Tablet Discontinued 325 mg PO 1200,1700 0 20 0 October 21, 2024 12:00am November 01, 2024 12:44pm supplement losartan potassium 100 mg oral tablet (20 sources) Angiotensin 2 Receptor Elizabeth Start: 06-06-2018 End: 11-24-2024 take 1 tablet by mouth once daily Losartan 100 MG tablet Discontinued 100 mg PO DAILY June 06, 2018 12:00am November 24, 2024 1:56pm bp Start: 08-04-2013 End: 04-19-2014 take 1 tablet by mouth once daily Losartan 100 MG tablet Discontinued 100 mg PO DAILY August 04, 2013 12:00am April 19, 2014 3:45pm meloxicam 7.5 mg oral tablet (8 sources) Nonsteroidal Anti-inflammatory Drug Start: 09-25-2022 End: 07-10-2024 take 1 tablet by mouth twice daily Meloxicam 7.5 mg Tablet Discontinued 7.5 mg PO TWICE A DAY 0 30 0 September 25, 2022 12:00am July 10, 2024 1:44pm inflammation Do not take any other nonsteroidal anti-inflammatories while using meloxicam/Mobic. ondansetron 4 mg disintegrating oral tablet (11 sources) Serotonin-3 Receptor Antagonist Start: 11-01-2024 End: 11-24-2024 take 1 tablet by mouth every six hours as needed for nausea and vomiting Ondansetron 4 mg tablet,disintegrating Discontinued 4 mg PO EVERY 6 HOURS as needed for nausea and vomiting November 01, 2024 12:00am November 24, 2024 1:56pm Start: 10-21-2024 take 4 mg intravenou sly every six hours as needed for nausea [...] NEEDED 90 30 October 08, 2022 11:00pm polyethylene glycol 3350 [id number] mg powder for oral solution (3 sources) Osmotic Laxative Start: 10-21-2024 End: 11-01-2024 Polyethylene Glycol 3350 (Miralax) 17 gram/dose powder Discontinued 17 g PO TWICE A DAY 119 0 October 21, 2024 12:00am November 01, 2024 12:43pm constipation rivaroxaban 10 mg oral tablet (12 sources) Factor Xa Inhibitor Start: 04-19-2014 End: 05-07-2014 take 1 tablet by mouth once daily Rivaroxaban (Xarelto) 10 MG tablet Discontinued 10 mg PO DAILY@0600 1 0 April 19, 2014 1:00am May 07, 2014 12:04pm Senna-Docusate Sodium tablet (2 sources) Start: 11-01-2024 End: 11-24-2024 Senna-Docusate Sodium tablet Discontinued 2 {tbl} PO TWICE A DAY November 01, 2024 12:00am November 24, 2024 1:57pm Start: 11-01-2024 Senna-Docusate Sodium tablet Active 2 {tbl} PO TWICE A DAY November 01, 2024 12:00am Problems Problem Classification Problem Date Documented Date Episodic/Chronic Administrative/socia l admission (20 sources) Education and/or schooling finding; Translations: [Problems related to education and literacy, unspecified] Episodic Anxiety disorders (12 sources) Anxiety; Translations: [Anxiety disorder, unspecified] 09-01-2018 Chronic Calculus of urinary tract (5 sources) Kidney stone; Translations: [Calculus of kidney] Onset: 5 10-21-2024 Episodic Deficiency and other anemia (9 sources) Anemia; Translations: [Anemia, unspecified] 10-21-2024 Episodic Deficiency and other anemia (2 sources) Anemia, unspecified; Translations: [Anemia, unspecified] Onset: 5 Episodic Diabetes mellitus with complications (1 source) Type 2 diabetes mellitus with hyperglycemia; Translations: [Type 2 diabetes mellitus with hyperglycemia] Onset: 5 Chronic Diseases of white blood cells (20 sources) Leukocytosis; Translations: [Elevated white blood cell count, unspecified] Chronic Disorders of lipid metabolism (17 sources) Hyperlipidemia; Translations: [Hyperlipidemia, unspecified] 09-01-2018 Chronic E Codes: Fall (12 sources) Fall; Translations: [Unspecified fall, initial encounter] 09-01-2018 Episodic Essential hypertension (20 sources) Hypertensive disorder; Translations: [Essential (primary) hypertension] Onset: 4 09-01-2018 Chronic Fracture of neck of femur (hip) (13 sources) Fracture of bone of hip region; Translations: [Fracture of unspecified part of neck of left femur, initial encounter for closed fracture] Onset: 5 09-01-2018 Episodic Malaise and fatigue (12 sources) Asthenia; Translations: [Other malaise] Onset: 5 10-22-2022 Episodic Neoplasms of unspecified nature or uncertain behavior (20 sources) Essential thrombocythemia; Translations: [Essential (hemorrhagic) thrombocythemia] Onset: 5 Chronic Comment on above: Britton 2+ Neoplasms of unspecified nature or uncertain behavior (20 sources) Myeloproliferative disorder; Translations: [Chronic myeloproliferative disease] Onset: 5 Episodic Nutritional deficiencies (11 sources) Vitamin D deficiency; Translations: [Vitamin D deficiency, unspecified] Onset: 5 10-22-2022 Chronic Comment on above: ON SUPPLEMENT Osteoarthritis (2 sources) Unilateral post-traumatic osteoarthritis, left knee; Translations: [Unilateral primary osteoarthritis, left knee] Onset: 5 Chronic Other aftercare (1 source) Aftercare following joint replacement surgery; Translations: [Aftercare following joint replacement surgery] Onset: 5 Chronic Other connective tissue disease (16 sources) History of total knee arthroplasty; Translations: [Presence of right artificial knee joint] 10-22-2022 Chronic Other connective tissue disease (1 source) Presence of right artificial knee joint; Translations: [Knee joint replacement] 10-14-2022 Chronic Other connective tissue disease (1 source) Presence of left artificial knee joint; Translations: [Presence of left artificial knee joint] Onset: 5 Chronic Other hematologic conditions (19 sources) Erythrocytosis; Translations: [Secondary polycythemia] 09-01-2018 Episodic Other hematologic conditions (5 sources) Secondary polycythemia; Translations: [Polycythemia, secondary] Episodic Other nutritional; endocrine; and metabolic disorders (8 sources) Body mass index 30+ - obesity; Translations: [Body mass index (BMI) 33.0-33.9, adult] 10-22-2022 Chronic Other nutritional; endocrine; and metabolic disorders (1 source) Body mass index (BMI) 33.0-33.9, adult; Translations: [Body Mass Index 33.0-33.9, adult] 10-14-2022 Chronic Other screening for suspected conditions (not mental disorders or infectious disease) (8 sources) Electrocardiogram abnormal; Translations: [Abnormal electrocardiogram [ECG] [EKG]] 09-20-2024 Episodic Thyroid disorders (16 sources) Hypothyroidism; Translations: [Hypothyroidism, unspecified] Onset: 5 09-01-2018 Chronic Unclassified (1 source) new patient/hospital follow up Results Test Name Value Interpretation Reference Range Facility Absolute lymphocyte countOrd ered By: Dago Emery on 11-24-2024 Lymphocytes Auto (Unsp spec) [#/Vol] 1.12 10*3/uL 0.83-4.51 [facility] Absolute neutrophil countOrd ered By: Dago Emery on 11-24-2024 Neutrophils (Bld) [#/Vol] 2.7 10*3/uL 2.0-7.7 [facility] Anion gap in Serum or Plasma Ordered By: Dago Emery on 11-24-2024 Anion gap [Moles/Vol] 12 mmol/L - [facility] Automated lymphocyte count a s percentage of total leukocytesOrdered By: Dago Emery on 11-24-2024 Lymphocytes/100 WBC Auto (Unsp spec) 27.0 % -41 [facility] BUN/creatinine ratioOrdered By: Dago Emery on 11-24-2024 Urea nitrogen/Creatinine [Mass ratio] 11.3 mg/mg - [facility] Basic Metabolic Profile (BMP )on 11-24-2024 BUN/CRE 11.3 RATIO Normal 01-08 [facility] Comment on above: Performed By: #### L 500.2500, L100.0100 ####[facility] [address] [place], [address] Calcium [Mass/Vol] 9.0 mg/dL Normal 7.6-11.0 [facility] Comment on above: Performed By: #### L 500.2500, L100.0100 ####[facility] [address] [place], [address] Chloride [Moles/Vol] 100 mmol/L Normal 98-108 [facility] Comment on above: Performed By: #### L 500.2500, L100.0100 ####[facility] [address] [place], [address] CO2 [Moles/Vol] 24.0 mmol/L Normal 21.0-32.0 [facility] Comment on above: Performed By: #### L 500.2500, L100.0100 ####[facility] [address] [place], [address] Creatinine [Mass/Vol] 1.02 mg/dL Normal 0.70-1.20 [facility] Comment on above: Performed By: #### L 500.2500, L100.0100 ####[facility] [address] [place], [address] ECRCL 46.75 ml/min Low 50-250 [facility] Comment on above: Performed By: #### L 500.2500, L100.0100 ####[facility] [address] [place], [address] GAP 12 Normal 5-15 [facility] Comment on above: Performed By: #### L 500.2500, L100.0100 ####[facility] [address] [place], [address] GFR/1.73 sq M.predicted among non-blacks MDRD (S/P/Bld) [Vol rate/Area] 55 mL/min/{1.73_m2} Low >60 [facility] Comment on above: Result Comment: mL/m in/1.73m2 CKD-EPI Creatinine Equation (2020) Performed By: #### L 500.2500, L100.0100 ####[facility] [address] [place], [address] Glucose [Mass/Vol] 119 mg/dL High 70-99 [facility] Comment on above: Performed By: #### L 500.2500, L100.0100 ####[facility] [address] [place], [address] Potassium [Moles/Vol] 3.7 mmol/L Normal 3.3-5.1 [facility] Comment on above: Performed By: #### L 500.2500, L100.0100 ####[facility] [address] [place], [address] Sodium [Moles/Vol] 135 mmol/L Normal 133-145 [facility] Comment on above: Performed By: #### L 500.2500, L100.0100 ####[facility] [address] [place], [address] Urea nitrogen [Mass/Vol] 12 mg/dL Normal 4-19 [facility] Comment on above: Performed By: #### L 500.2500, L100.0100 ####[facility] [address] [place], [address] Basophil percentageOrdered B y: Dago Emery on 11-24-2024 Basophils/100 WBC (Bld) 0.5 % 0-1 [facility] Blood manual differential co mment interpretation (narrative result)Ordered By: Dago Emery on 11-24-2024 Manual differential comment Jack (Bld) [Interp] SCANNED [facility] CBC W/Diff, Automatedon Anisocytosis Ql (Bld) 2+ Normal [facility] Comment on above: Performed By: #### L 500.2500, L100.0100 #### [facility] [address] [place], [address] SMEAR COMMENT SCANNED Normal [facility] Comment on above: Performed By: #### L 500.2500, L100.0100 #### [facility] [address] [place], [address] Carbon dioxide, total [Moles /volume] in Central venous bloodOrdered By: Dago Emery on 11-24-2024 CO2 [Moles/Vol] 24.0 mmol/L 21.0-32.0 [facility] Chloride assayOrdered By: Jorge Emery on 11-24-2024 Chloride [Moles/Vol] 100 mmol/L 98-108 [facility] Eosinophil percentageOrdered By: Dago Emery on 11-24-2024 Eosinophils/100 WBC (Bld) 2.2 % 0-5 [facility] Erythrocyte distribution wid th ratioOrdered By: Dago Emery on 11-24-2024 Erythrocyte distribution width (RBC) [Ratio] 16.9 % High 11.6-14.6 [facility] Erythrocyte distribution wid th standard deviationOrdered By: Dago Emery on 11-24-2024 Erythrocyte distribution width (RBC) [Ratio] 70.3 fl High 35.1-43.9 [facility] Glomerular filtration rate ( GFR) estimation/1.73 sq m using serum, plasma, or whole bOrdered By: Dago Emery on 11-24-2024 GFR/1.73 sq M.predicted among non-blacks MDRD (S/P/Bld) [Vol rate/Area] 55 mL/min/{1.73_m2} Low >60 [facility] Comment on above: mL/min/1.73m2 CKD-EP I Creatinine Equation (2020) Hematocrit Auto (Bld) [Volum e fraction]Ordered By: Dago Emery on 11-24-2024 Hematocrit (Bld) [Volume fraction] 30.7 % Low 37-47 [facility] Hemoglobin measurementOrdere d By: Dago Emery on 11-24-2024 Hemoglobin (Bld) [Mass/Vol] 10.3 g/dL Low 12.0-15.0 [facility] Immature granulocytes/100 WB C Auto (Bld)Ordered By: Dago Emery on 11-24-2024 Immature granulocytes/100 WBC (Bld) 0.500 % 0.0-0.9 [facility] Comment on above: IG% - Immature Granu locytes (promyelocytes, myelocytes and metamyelocytes) > 1% indicates that a LEFT SHIFT is Present. Laboratory - Hematology and Cell countsOrdered By: Dago Emery on 11-24-2024 Anisocytosis Ql (Bld) 2+ [facility] MCV (mean corpuscular volume ) determinationOrdered By: Dago Emery on 11-24-2024 MCV (RBC) [Entitic vol] 115.0 fL High 81-99 [facility] Mean corpuscular hemoglobin (MCH) determinationOrdered By: Dago Emery 11-24-2024 MCH (RBC) [Entitic mass] 38.6 pg High 27.0-32.0 [facility] Mean corpuscular hemoglobin concentration (MCHC) determinationOrdered By: Dago Emery 11-24-2024 MCHC (RBC) [Mass/Vol] 33.6 g/dL 32-36 [facility] Mean platelet volume determi nationOrdered By: Dago Emery on 11-24-2024 Platelet mean volume (Bld) [Entitic vol] 10.0 fL 6.2-12.0 [facility] Monocyte percentageOrdered B y: Dago Emery on 11-24-2024 Monocytes/100 WBC (Bld) 5.3 % 0-10 [facility] Neutrophil percentageOrdered By: Dago Emery 11-24-2024 Neutrophils/100 WBC (Bld) 64.5 % 47-70 [facility] Nucleated red blood cell per centageOrdered By: Dago Emery 11-24-2024 Nucleated RBC/100 WBC (Bld) [Ratio] 0 % 0-5 [facility] Platelet countOrdered By: Jorge Emery on 11-24-2024 Platelets (Bld) [#/Vol] 239 10*3/uL 150-450 [facility] Potassium measurement (mass/ volume)Ordered By: Dago Emery on 11-24-2024 Potassium (Unsp spec) [Mass/Vol] 3.7 mmol/L 3.3-5.1 [facility] RBC Auto (Bld) [#/Vol]Ordere d By: Dago Emery on 11-24-2024 RBC (Bld) [#/Vol] 2.67 10*6/uL Low 4.2-5.4 [facility] Serum creatinine measurement (mass/volume)Ordered By: Dago Emery on 11-24-2024 Creatinine [Mass/Vol] 1.02 mg/dL 0.70-1.20 [facility] Serum glucose measurement (m ass/volume)Ordered By: Dago Emery on 11-24-2024 Glucose [Mass/Vol] 119 mg/dL High 70-99 [facility] Serum or plasma calcium niels urement (mass/volume)Ordered By: Dago Emery on 11-24-2024 Calcium [Mass/Vol] 9.0 mg/dL 7.6-11.0 [facility] Serum or plasma urea nitroge n measurement (mass/volume)Ordered By: Dago Emery on 11-24-2024 Urea nitrogen [Mass/Vol] 12 mg/dL 4-19 [facility] Sodium levelOrdered By: Dago Emery on 11-24-2024 Sodium [Moles/Vol] 135 mmol/L 133-145 [facility] White blood cell (WBC) count Ordered By: Dago Emery on 11-24-2024 WBC (Bld) [#/Vol] 4.2 10*3/uL Low 4.4-11.0 [facility] Basic Metabolic Profile (BMP )on 11-17-2024 BUN/CRE 14.3 RATIO Normal 10-20 [facility] Comment on above: Performed By: #### L 100.0100, L500.2500 ####[facility] [address] [place], [address] Calcium [Mass/Vol] 8.9 mg/dL Normal 7.6-11.0 [facility] Comment on above: Performed By: #### L 100.0100, L500.2500 ####[facility] [address] [place], [address] Chloride [Moles/Vol] 101 mmol/L Normal 98-108 [facility] Comment on above: Performed By: #### L 100.0100, L500.2500 ####[facility] [address] [place], [address] CO2 [Moles/Vol] 23.8 mmol/L Normal 21.0-32.0 [facility] Comment on above: Performed By: #### L 100.0100, L500.2500 ####[facility] [address] [place], [address] Creatinine [Mass/Vol] 1.02 mg/dL Normal 0.70-1.20 [facility] Comment on above: Performed By: #### L 100.0100, L500.2500 ####[facility] [address] [place], [address] ECRCL 47.80 ml/min Low 50-250 [facility] Comment on above: Performed By: #### L 100.0100, L500.2500 ####[facility] [address] [place], [address] GAP 11 Normal 5-15 [facility] Comment on above: Performed By: #### L 100.0100, L500.2500 ####[facility] [address] [place], [address] GFR/1.73 sq M.predicted among non-blacks MDRD (S/P/Bld) [Vol rate/Area] 55 mL/min/{1.73_m2} Low >60 [facility] Comment on above: Result Comment: mL/m in/1.73m2 CKD-EPI Creatinine Equation (2020) Performed By: #### L 100.0100, L500.2500 ####[facility] [address] [place], [address] Glucose [Mass/Vol] 82 mg/dL Normal 70-99 [facility] Comment on above: Performed By: #### L 100.0100, L500.2500 ####[facility] [address] [place], [address] Potassium [Moles/Vol] 3.8 mmol/L Normal 3.3-5.1 [facility] Comment on above: Performed By: #### L 100.0100, L500.2500 ####[facility] [address] [place], [address] Sodium [Moles/Vol] 136 mmol/L Normal 133-145 [facility] Comment on above: Performed By: #### L 100.0100, L500.2500 ####[facility] [address] [place], [address] Urea nitrogen [Mass/Vol] 15 mg/dL Normal 4-19 [facility] Comment on above: Performed By: #### L 100.0100, L500.2500 ####[facility] [address] [place], [address] CBC W/Diff, Automatedon - Anisocytosis Ql (Bld) 1+ Normal [facility] Comment on above: Performed By: #### L 100.0100, L500.2500 ####[facility] [address] [place], [address] HH, Hemoglobin AND Hematocri ton 11-15-2024 Hematocrit (Bld) [Volume fraction] 26.1 % Low 37-47 [facility] Comment on above: Performed By: #### L 501.5200, L501.9520 #### [facility] [address] [place], [address] Hemoglobin (Bld) [Mass/Vol] 8.8 g/dL Low 12.0-15.0 [facility] Comment on above: Performed By: #### L 501.5200, L501.9520 #### [facility] [address] [place], [address] COVID 19 AG RAPID (DOUGLAS RAJPUT T)on 11-13-2024 SARS-CoV-2 (COVID-19) RNA JANY+probe Ql (Unsp spec) *Negative results from patients with symptom onset beyond five days should be treated as presumptive and confirmed by a molecular assay if clinically necessary. Negative results should not be used as the sole basis for treatment or for patient management. SARS-CoV-2 Ag Resp Ql IA.rapid *Positive results do not differentiate between SARS-CoV and SARS-CoV-2. If differentiation of the specific SARS virus is desired an additional sample and an additional order is required. SARS-CoV-2 Ag Resp Ql IA.rapid * This test has not been FDA cleared or approved; the test has been authorized by FDA under an Emergency Use Authorization (EAU) for use by laboratories certified under CLIA that meet the requirements to perform moderate, high, or waived complexity tests. SARS-CoV-2 Ag Resp Ql IA.rapid Normal Reference Range: Negative SARS-CoV-2 (COVID 19) Negative RAPID METHOD BinaxNow COVID19 Ag Card Normal [facility] Comment on above: Performed By: #### M 100.505 ####[facility] [address] [place], [address] COVID-19 virus antigen assay Ordered By: Dago Emery on 11-13-2024 SARS-CoV-2 (COVID-19) Ag IA.rapid Ql (Resp) [facility] HH, Hemoglobin AND Hematocri ton 11-13-2024 Hematocrit (Bld) [Volume fraction] 25.3 % Low 37-47 [facility] Comment on above: Performed By: #### L 100.0600 ####[facility] [address] [place], [place], [address] Hemoglobin (Bld) [Mass/Vol] 8.6 g/dL Low 12.0-15.0 [facility] Comment on above: Performed By: #### L 100.0600 ####[facility] [address] [place], [address] COVID 19 AG RAPID (RN COLLE T)on 11-11-2024 SARS-CoV-2 (COVID-19) RNA JANY+probe Ql (Unsp spec) *Negative results from patients with symptom onset beyond five days should be treated as presumptive and confirmed by a molecular assay if clinically necessary. Negative results should not be used as the sole basis for treatment or for patient management. SARS-CoV-2 Ag Resp Ql IA.rapid *Positive results do not differentiate between SARS-CoV and SARS-CoV-2. If differentiation of the specific SARS virus is desired an additional sample and an additional order is required. SARS-CoV-2 Ag Resp Ql IA.rapid * This test has not been FDA cleared or approved; the test has been authorized by FDA under an Emergency Use Authorization (EAU) for use by laboratories certified under CLIA that meet the requirements to perform moderate, high, or waived complexity tests. SARS-CoV-2 Ag Resp Ql IA.rapid Normal Reference Range: Negative SARS-CoV-2 (COVID 19) Negative RAPID METHOD BinaxNow COVID19 Ag Card Normal [facility] Comment on above: Performed By: #### M 100.505 ####[facility] [address] [place], [address] COVID-19 virus antigen assay Ordered By: Dago Emery on 11-11-2024 SARS-CoV-2 (COVID-19) Ag IA.rapid Ql (Resp) [facility] Basic Metabolic Profile (BMP )on 11-10-2024 BUN/CRE 13.9 RATIO Normal 10-20 [facility] Comment on above: Performed By: #### L 500.2500, L100.0100 ####[facility] [address] [place], [address] Calcium [Mass/Vol] 8.5 mg/dL Normal 7.6-11.0 [facility] Comment on above: Performed By: #### L 500.2500, L100.0100 ####[facility] [address] [place], [address] Chloride [Moles/Vol] 102 mmol/L Normal 98-108 [facility] Comment on above: Performed By: #### L 500.2500, L100.0100 ####[facility] [address] [place], [address] CO2 [Moles/Vol] 25.0 mmol/L Normal 21.0-32.0 [facility] Comment on above: Performed By: #### L 500.2500, L100.0100 ####[facility] [address] [place], [address] Creatinine [Mass/Vol] 0.90 mg/dL Normal 0.70-1.20 [facility] Comment on above: Performed By: #### L 500.2500, L100.0100 ####[facility] [address] [place], [address] ECRCL 54.17 ml/min Normal 50-250 [facility] Comment on above: Performed By: #### L 500.2500, L100.0100 ####[facility] [address] [place], [address] GAP 11 Normal 5-15 [facility] Comment on above: Performed By: #### L 500.2500, L100.0100 ####[facility] [address] [place], [address] GFR/1.73 sq M.predicted among non-blacks MDRD (S/P/Bld) [Vol rate/Area] 64 mL/min/{1.73_m2} Normal >60 [facility] Comment on above: Result Comment: mL/m in/1.73m2 CKD-EPI Creatinine Equation (2020) Performed By: #### L 500.2500, L100.0100 ####[facility] [address] [place], [address] Glucose [Mass/Vol] 82 mg/dL Normal 70-99 [facility] Comment on above: Performed By: #### L 500.2500, L100.0100 ####[facility] [address] [place], [address] Potassium [Moles/Vol] 3.7 mmol/L Normal 3.3-5.1 [facility] Comment on above: Performed By: #### L 500.2500, L100.0100 ####[facility] [address] [place], [address] Sodium [Moles/Vol] 138 mmol/L Normal 133-145 [facility] Comment on above: Performed By: #### L 500.2500, L100.0100 ####[facility] [address] [place], [address] Urea nitrogen [Mass/Vol] 13 mg/dL Normal 4-19 [facility] Comment on above: Performed By: #### L 500.2500, L100.0100 ####[facility] [address] [place], [address] Blood polychromasia detectio n by light microscopyOrdered By: Dago Emery on 11-10-2024 Polychromasia LM Ql (Bld) 1+ [facility] CBC W/Diff, Automatedon 10-21 POLYCHROMASIA 1+ Normal [facility] Comment on above: Performed By: #### L 500.2500, L100.0100 ####[facility] [address] [place], [address] Anisocytosis Ql (Bld) 2+ Normal [facility] Comment on above: Performed By: #### L 500.2500, L100.0100 ####[facility] [address] [place], [address] PLT EST ADEQUATE Normal [facility] Comment on above: Performed By: #### L 500.2500, L100.0100 ####[facility] [address] [place], [address] Platelet estimateOrdered By: Dago Emery on 11-10-2024 Platelets LM Ql (Bld) ADEQUATE ADEQ [facility] COVID 19 AG RAPID (DOUGLAS Devine)on 11-09-2024 SARS-CoV-2 (COVID-19) RNA JANY+probe Ql (Unsp spec) *Negative results from patients with symptom onset beyond five days should be treated as presumptive and confirmed by a molecular assay if clinically necessary. Negative results should not be used as the sole basis for treatment or for patient management. SARS-CoV-2 Ag Resp Ql IA.rapid *Positive results do not differentiate between SARS-CoV and SARS-CoV-2. If differentiation of the specific SARS virus is desired an additional sample and an additional order is required. SARS-CoV-2 Ag Resp Ql IA.rapid * This test has not been FDA cleared or approved; the test has been authorized by FDA under an Emergency Use Authorization (EAU) for use by laboratories certified under CLIA that meet the requirements to perform moderate, high, or waived complexity tests. SARS-CoV-2 Ag Resp Ql IA.rapid Normal Reference Range: Negative SARS-CoV-2 (COVID 19) Negative RAPID METHOD BinaxNow COVID19 Ag Card Normal [facility] Comment on above: Performed By: #### M 100.505 ####[facility] [address] [facility] [place], [place], [id number] COVID-19 virus antigen assay Ordered By: Dago Emery on 11-09-2024 SARS-CoV-2 (COVID-19) Ag IA.rapid Ql (Resp) [facility] Ankle min 3 Viewson 11-04-19 25 Ankle min 3 Views [facility] [address] [place], [place] [address] Ankle min 3 Views MR#: [id number] Acct: [id number] Name: BERNICE HASSAN Rep #: [id number] : 1945 F 79 From: Krish Batres MD PCP: Dr. Dago Emery MD Status: ADM IN Study: Ankle min 3 Views Date of Exam: 11/03/24 Exam# [id number] Ordering Dr: Geo Rodriguez MD PROCEDURE: ANKLE MIN 3 VIEWS 11/03/2024 REASON FOR EXAM: PAIN TECHNIQUE: ANKLE MIN 3 VIEWS Laterality: Left COMPARISON: X-ray left ankle 10/17/2024 FINDINGS: Bones: Old healed fracture deformity of distal fibula. Redemonstration of mildly displaced fracture deformity of distal tibia with overlying cast. There is persistent mildly displaced fracture deformity of distal tibial metadiaphysis. Calcaneal spurs are visualized. Diffuse osteopenia of visualized bones. Joints: Degenerative changes of visualized ankle joint. Soft tissues: Soft tissue swelling overlying ankle joint. RAD/Ankle min 3 Views IMPRESSION: Mildly displaced fracture deformity of distal tibial metaphysis with partial healing and minimal callus formation with overlying cast. Old healed fracture deformity of distal fibula. Reading Location: [facility] CC: Dr. Geo Rodriguez MD; Dr. Dago Emery MD Loss Prevention Consultant: Signed Normal [facility] Basic Metabolic Profile (BMP )on 11-03-2024 BUN/CRE 15.7 RATIO Normal 10-20 [facility] Comment on above: Performed By: #### L 501.5200, L501.9520 #### [facility] [address] [place], [address] Calcium [Mass/Vol] 8.8 mg/dL Normal 7.6-11.0 [facility] Comment on above: Performed By: #### L 501.5200, L501.9520 #### [facility] [address] [place], [address] Chloride [Moles/Vol] 101 mmol/L Normal 98-108 [facility] Comment on above: Performed By: #### L 501.5200, L501.9520 #### [facility] [address] [place], [address] CO2 [Moles/Vol] 22.1 mmol/L Normal 21.0-32.0 [facility] Comment on above: Performed By: #### L 501.5200, L501.9520 #### [facility] [address] [place], [address] Creatinine [Mass/Vol] 1.16 mg/dL Normal 0.70-1.20 [facility] Comment on above: Performed By: #### L 501.5200, L501.9520 #### [facility] [address] [place], [address] ECRCL 42.03 ml/min Low 50-250 [facility] Comment on above: Performed By: #### L 501.5200, L501.9520 #### [facility] [address] [place], [address] GAP 11 Normal 5-15 [facility] Comment on above: Performed By: #### L 501.5200, L501.9520 #### [facility] [address] [place], [address] GFR/1.73 sq M.predicted among non-blacks MDRD (S/P/Bld) [Vol rate/Area] 47 mL/min/{1.73_m2} Low >60 [facility] Comment on above: Result Comment: mL/m in/1.73m2 CKD-EPI Creatinine Equation (2020) Performed By: #### L 501.5200, L501.9520 #### [facility] [address] [place], [address] Glucose [Mass/Vol] 88 mg/dL Normal 70-99 [facility] Comment on above: Performed By: #### L 501.5200, L501.9520 #### [facility] [address] [place], [address] Potassium [Moles/Vol] 4.0 mmol/L Normal 3.3-5.1 [facility] Comment on above: Performed By: #### L 501.5200, L501.9520 #### [facility] [address] [place], [address] Sodium [Moles/Vol] 134 mmol/L Normal 133-145 [facility] Comment on above: Performed By: #### L 501.5200, L501.9520 #### [facility] [address] [place], [address] Urea nitrogen [Mass/Vol] 18 mg/dL Normal 4-19 [facility] Comment on above: Performed By: #### L 501.5200, L501.9520 #### [facility] [address] [place], [address] CBC W/Diff, Automatedon 10-20 Anisocytosis Ql (Bld) 2+ Normal [facility] Comment on above: Performed By: #### L 501.5200, L501.9520 #### [facility] [address] [place], [address] MACROCYTOSIS 2+ Normal [facility] Comment on above: Performed By: #### L 501.5200, L501.9520 #### [facility] [address] [place], [address] POLYCHROMASIA RARE Normal [facility] Comment on above: Performed By: #### L 501.5200, L501.9520 #### [facility] [address] [place], [address] RED CELL MORPH N CHROM Normal NORM C C [facility] Comment on above: Performed By: #### L 501.5200, L501.9520 #### [facility] [address] [place], [address] SMEAR COMMENT SCANNED Normal [facility] Comment on above: Performed By: #### L 501.5200, L501.9520 #### [facility] [address] [place], [address] Erythrocyte morphology asses smentOrdered By: Dago Emery on 11-03-2024 RBC morphology finding Nom (Bld) N CHROM NORMAL NORM C&C [facility] Macrocytes detectionOrdered By: Dago Emery on 11-03-2024 Macrocytes Ql (Bld) 2+ [facility] EGD Reporton 11-01-2024 EGD Report [facility] Medical Records Department [address] [place] [address] EGD Report MR#: [id number] Acct: [id number] Name: BERNICE HASSAN Rep #: [id number] : 1945 79 From: Pio Webb DO PCP: Dr. Dago Emery MD Status:REG [facility] Patient Name: Bernice Hassan Procedure Date: 11/01/2024 3:55 PM Date of : 1945 Age: 79 Procedure: Upper GI endoscopy Indications: Acute post hemorrhagic anemia, Iron deficiency anemia, Heme positive stool, Recent gastrointestinal bleeding Providers: Pio Webb DO Medicines: Monitored Anesthesia Care Patient Profile: This is an 79 year old female. Refer to note in patient chart for documentation of history and physical. Patient has symptoms. Complications: No immediate complications. Procedure: Pre-Anesthesia Assessment: - Prior to the procedure, a History and Physical was performed, and patient medications and allergies were reviewed. The patient is competent. The risks and benefits of the procedure and the sedation options and risks were discussed with the patient. All questions were answered and informed consent was obtained. Patient identification and proposed procedure were verified by the physician in the pre-procedure area. Mental Status Examination: alert and oriented. Airway Examination: normal oropharyngeal airway and neck mobility. Respiratory Examination: clear to auscultation. CV Examination: normal. ASA Grade Assessment: III - A patient with severe systemic disease. After reviewing the risks and benefits, the patient was deemed in satisfactory condition to undergo the procedure. The anesthesia plan was to use monitored anesthesia care (MAC). Immediately prior to administration of medications, the patient was re-assessed for adequacy to receive sedatives. The heart rate, respiratory rate, oxygen saturations, blood pressure, adequacy of pulmonary ventilation, and response to care were monitored throughout the procedure. The physical status of the patient was re-assessed after the procedure. After obtaining informed consent, the endoscope was passed under direct vision. Throughout the procedure, the patient's blood pressure, pulse, and oxygen saturations were monitored continuously. The gastroscope was introduced through the mouth, and advanced to the fourth part of the duodenum. Small bowel enteroscopy was deemed necessary. The upper GI endoscopy was accomplished without difficulty. The patient tolerated the procedure well. Scope In: 4:02:30 PM Scope Out: 4:05:27 PM Total Procedure Duration Time 0 hours 2 minutes 57 seconds Findings: The examined esophagus was normal. A mild Schatzki ring was found at the gastroesophageal junction. Patchy moderate inflammation characterized by serpentine ulcerations was found in the gastric body and in the gastric antrum. Biopsies were taken with a cold forceps for histology. Verification of patient identification for the specimen was done. Estimated blood loss was minimal. Biopsies were taken with a cold forceps for Helicobacter pylori testing. Verification of patient identification for the specimen was done. Estimated blood loss was minimal. One non-bleeding cratered duodenal ulcer with no stigmata of bleeding was found in the first portion of the duodenum. The lesion was 25 mm in largest dimension. Biopsies were taken with a cold forceps for histology. Verification of patient identification for the specimen was done. Estimated blood loss was minimal. Impression: - Normal esophagus. - Mild Schatzki ring. - Chronic gastritis. Biopsied. - Non-bleeding duodenal ulcer with no stigmata of bleeding. Biopsied. Recommendation: - Return patient to referring hospital for ongoing care. - Resume previous diet. - Use Protonix (pantoprazole) 40 mg PO BID for 3 months. - Use sucralfate tablets 1 gram PO BID for 1 month. - Continue present medications. Procedure Code(s): --- Professional --- 13273, Small intestinal endoscopy, enteroscopy beyond second portion of duodenum, not including ileum; with biopsy, single or multiple CPT copyright 2021 [employer]. All rights reserved. The codes documented in this report are preliminary and upon computed tomography technologist review may be revised to meet current compliance requirements. Pio Webb DO 11/01/2024 4:13:52 PM This report has been signed electronically. Number of Addenda: 0 Note Initiated On: 11/01/2024 3:55 PM 11/01/24 1614 Date Pio Kaur Signature: Date (if indicated) CC: Dr. Dago Emery MD; Pio Webb DO Date Dictated: 11/01/24 3158 Date Transcribed: Loss Prevention Consultant: GOKUL Signed Normal [facility] Immunohistochemical Stainson 11-01-2024 Immunohistochemical Stains -------- Patient Age/Sex Location Account Attending Physician -------- BERNICE HASSAN 79/F EN [id number] Pio Webb DO -------- Specimen: [id number] Received: 11/02/24 Status: FAITH Vargas Num: [id number] Spec Type: EGD BIOPSY Subm Dr: Pio Webb DO HEADER OPERATION: EGD PRE-OP DIAGNOSIS: Anemia TISSUE SUBMITTED: A- Gastric antrum biopsy, B- Duodenal ulcer biopsy -------- MICROSCOPIC DIAGNOSIS A. Gastric antrum, biopsy: - Antral mucosa with features of reactive gastropathy. - IHC negative for H. pylori organisms. B. Duodenum, ulcer, biopsy: - Normal villous morphology with Kimani gland hyperplasia. - Negative for increased intraepithelial lymphocytes. MICROSCOPIC DESCRIPTION Slides are reviewed. All matched controls reacted appropriately. These tests were developed and their performance characteristics determined by [facility]. They may not have been cleared or approved by the U.S. Food and Drug Administration. The FDA has determined that such clearance or approval is not necessary.??? The above immunohistochemical???marker s are reviewed by the Pathologist. GROSS DESCRIPTION A. Received in fixative is one container labeled with the patient's name and designated "Gastric antrum biopsy." The specimen consists of one irregular fragment of light reddy soft tissue that measures 0.8 cm. The specimen is totally submitted in one cassette. B. Received in fixative is one container labeled with the patient's name and designated "Duodenal ulcer biopsy." The specimen consists of one irregular fragment of light reddy soft tissue that measures 0.3 cm. The specimen is totally submitted in one cassette. DE 11/02/2024 CPT:98175l0 ,82715 -------- Patient Age/Sex Location Account Attending Physician -------- BERNICE HASSAN Alfred 79/F EN [id number] Pio Webb DO -------- Signed (signature on file) Dr. Jeanie Leal MD 11/06/24 1453 -------- Normal [facility] Comment on above: Performed By: #### [facility] ####[facility] [address] [place], [address] MR/OP.PROVATon 11-01-2024 [facility] Medical Records Department [address] [place] [address] Provation Physician Letter MR#: [id number] Acct: [id number] Name: BERNICE HASSAN Alfred Rep #: [id number] : 1945 79 From: Pio Webb DO PCP: Dr. Dago Emery MD Status:REG [facility] 11/01/2024 Dago Emery MD [address] [place] [address] Re : Upper GI endoscopy procedure for Bernice Hassan Dear Dr. Emery This procedure was performed on Friday, November 01, 2024. My impressions and recommendations are as follows: Impressions : - Normal esophagus. - Mild Schatzki ring. - Chronic gastritis. Biopsied. - Non-bleeding duodenal ulcer with no stigmata of bleeding. Biopsied. Recommendations : - Return patient to referring hospital for ongoing care. - Resume previous diet. - Use Protonix (pantoprazole) 40 mg PO BID for 3 months. - Use sucralfate tablets 1 gram PO BID for 1 month. - Continue present medications. My findings are described in the full procedure note, which is enclosed. If I can be of further assistance, please feel free to contact me at . Sincerely, Pio Webb DO 11/01/2024 4:13:52 PM This report has been signed electronically. 11/01/241613 Date Pio Webb DO Cosigner Signature: Date (if indicated) CC: Dr. Dago Emery MD; Pio Webb DO Date Dictated: 11/01/245 Date Transcribed: Loss Prevention Consultant: GOKUL Signed [facility] MR/POSTOP.[facility] 11-01-2024 MR/POSTOP.[facility] Medical Records Department [address] [place] [address] Anesthesia Postop Eval I 11/01/241612 MR#: [id number] Acct: [id number] Name: BERNICE HASSAN Rep #: [id number] : 1945 79 From: Franklyn Lopez CRNA PCP: Dr. Dago Emery MD Status:REG SDC Y Race: C Location: [place] [address]- Anesthesia: Postop Eval I Current Vital Signs Temperature: 97.9 F Pulse Rate: 55 Blood Pressure: 117/53 Respiratory Rate: 14 Pulse Ox: 97 Oxygen Delivery Method: Room Air Assessment Airway patent: Yes Spontaneous unlabored respirations: Yes Mental status: Awake and Calm nausea: No Vomiting: No Anesthesia Complication: No Fluid Hydration Crystalloid volume administer (ml): 200 Total IV fluid infused: 200 Progress Note Anesthesia document: Postop Eval 1 completed: Yes 11/01/24 1613 Date Franklyn Lopez PHOTOGRAPHY SPOTTER Cosigner Signature: Date CC: Signed [facility] MR/[id number] 11-01-2024 MR/POSTOPAN2 [facility] Medical Records Department [address] [place] [address] Anesthesia Postop Eval II 11/01/24 1633 MR#: [id number] Acct: [id number] Name: BERNICE HASSAN Rep #: [id number] : 1945 79 From: Dinorah Headley PHOTOGRAPHY SPOTTER PCP: Dr. Dago Emery MD Status:REG [facility] Y Race: C Location: [place] [address] Anesthesia Postop Eval I Sum Postop Eval Completion status Anesthesia document: Postop Eval 1 completed: Yes Anesthesia Postop Eval I Summary Anesthesia Postop Eval I Summary: Anesthesia Postop Eval I: Assessment Summary Airway patent Yes 11/01/24 16:13 PHOTOGRAPHY [email or web address] Spontaneous unlabored Yes 11/01/24 16:13 PHOTOGRAPHY [email or web address].[email or web address] respirations Mental status Awake,Calm 11/01/24 16:13 PHOTOGRAPHY [email or web address].JBLOU nausea No 11/01/24 16:13 PHOTOGRAPHY [email or web address].JBLOU Vomiting No 11/01/24 16:13 PHOTOGRAPHY [email or web address].[email or web address] Anesthesia Postop Eval I: Fluid Summary Crystalloid volume administer 200 11/01/24 16:13 PHOTOGRAPHY [email or web address].JBLOU (ml) Colloids volume administered ( ml) Blood Product volume administered (ml) Total IV fluid infused 200 11/01/24 16:13 PHOTOGRAPHY [email or web address].JBLOU Anesthesia Postop Eval I: Summary Notes Anesthesia Complication No 11/01/24 16:13 PHOTOGRAPHY [email or web address].[email or web address] Anesthesia Complication Comment: Post-operative progress note Anesthesia: Postop Eval II Evaluation Mental status: Awake Pain Level: 0 nausea: No Vomiting: No 11/01/24 1633 Date Dinorah Headley PHOTOGRAPHY SPOTTER Cosigner Signature: Date CC: Signed Normal [facility] Ankle min 3 Viewson 11-01-19 25 Ankle min 3 Views [facility] Imaging Services [address] [place], [place] [address] Ankle min 3 Views MR#: [id number] Acct: [id number] Name: BERNICE HASSAN Rep #: [id number] : 1945 F 79 From: Derik Bacon MD PCP: Dr. Dago Emery MD Status: ADM IN Study: Ankle min 3 Views Date of Exam: 10/31/24 Exam# [id number] Ordering Dr: Dago Emery MD PROCEDURE: ANKLE MIN 3 VIEWS 10/31/2024 REASON FOR EXAM: LEFT TOTAL KNEE REPLACEMENT TECHNIQUE: ANKLE MIN 3 VIEWS Laterality: Left COMPARISON: October 17, 2024 FINDINGS: Bones: Decreased bone mineralization. Old, healed fracture of the fibular diaphysis with bayoneting of the healed fragments. Oblique fracture through the tibial metadiaphysis. Mild sclerotic change. This is subacute. Joints: Mild degenerative change tibiotalar joint and subtalar joint. Soft tissues: Atherosclerosis is present. Other: Large calcaneal spur. Minimal calcification dorsal to the talar neck. Non-specific but can be associated with capsular injury. RAD/Ankle min 3 Views IMPRESSION: 1. Decreased bone mineralization. 2. Fracture of the distal tibial metadiaphysis. Similar to prior. Likely subacute injury Reading Location: [facility] CC: Dr. Dago Emery MD Loss Prevention Consultant: Signed Normal [facility] HH, Hemoglobin AND Hematocri ton 10-31-2024 Hematocrit (Bld) [Volume fraction] 24.8 % Low 37-47 [facility] Comment on above: Performed By: #### L 100.0100, L500.4050 #### [facility] [address] [place], [address] Hemoglobin (Bld) [Mass/Vol] 8.4 g/dL Low 12.0-15.0 [facility] Comment on above: Performed By: #### L 100.0100, L500.4050 #### [facility] [address] [place], [address] Hematocrit Auto (Bld) [Volum e fraction]Ordered By: Dago Emery on 10-31-2024 Hematocrit (Bld) [Volume fraction] 24.8 % Low 3747 [facility] Hemoglobin measurementOrdere d By: Dago Emery on 10-31-2024 Hemoglobin (Bld) [Mass/Vol] 8.4 g/dL Low 12.0-15.0 [facility] Knee 1 or 2 Viewson 11-01-19 Knee 1 or 2 Views [facility] Imaging Services [address] [place] [address] Knee 1 or 2 Views MR#: [id number] Acct: [id number] Name: BERNICE HASSAN Rep #: [id number] : 1945 F 79 From: Raciel mcgee MD PCP: Dr. Dago Emery MD Status: ADM IN Study: Knee 1 or 2 Views Date of Exam: 10/31/24 Exam# [id number] Ordering Dr: Dago Emery MD PROCEDURE: KNEE 1 OR 2 VIEWS 10/31/2024 REASON FOR EXAM: POST-OP TECHNIQUE: KNEE 1 OR 2 VIEWS Laterality: Left COMPARISON: None FINDINGS: Patient is status post total knee replacement of the constrained type. There is good alignment. 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 There is good alignment. Reading Location: [place] [address] CC: Dr. Dago Emery MD Loss Prevention Consultant: Signed [facility] MR/CON.PCM.SHENon 10-31-2024 MR/CON.PCM.GI [facility] Medical Records Department [address] [place] [address] Consultation - GI 10/31/24 0951 MR#: [id number] Acct: [id number] Name: BERNICE HASSAN Rep #: [id number] : 1945 79 From: Pio Webb DO PCP: Dr. Dago Emery MD Status:ADM IN Location: [place] [address] HPI Consult Data Date of Consult: 10/31/24 HPI Narrative Reason for Consultation: Anemia HPI Narrative: BERNICE HASSAN, is a 79 F who is currently in rehab. 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 She has no known chronic infectious or inflammatory diseases. 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 She is currently taking hydroxyurea and [address] Rodriguez performed left total knee replacement, removal left tibial nail, removal of 4 interlocking screws. All postoperative course has been complicated by an acute distal tibial fracture. She remains on aspirin therapy and starting on doxycycline. I was asked to see her due to decreasing hemoglobin A1c provide with stools. Patient states she has had colonoscopy as part of recently but the last 5 years. [facility] Medical History Cardiology follow-up encounter Wears glasses [...] 50 mcg PO DAILY thyroid 08/04/13 0 10/21/24 History (Levoxyl) losartan 100 mg tablet 100 mg PO DAILY bp 06/06/18 History amlodipine 5 mg tablet 5 mg PO DAILY bp 07/21/18 10/21/24 History cholecalciferol (vitamin D3) 25 1,000 unit PO DAILY bones 10/26/19 10/21/24 History mcg (1,000 unit) tablet atenolol 50 mg tablet 50 mg PO DAILY@0800 blood 10/09/22 10/21/24 Rx pressure/heart rate 30 days #30 tabs hydroxyurea 500 mg capsule 1,000 mg (2 x 500 mg) PO 10/02/24 10/21/24 Rx MOTUTHFRSA chemo #100 caps acetaminophen 500 mg tablet 1,000 mg PO BID PRN inflammation 0 10/04/24 10/21/24 History acetaminophen 500 mg tablet 1,000 mg (2 x 500 mg) PO Q8 pain 0 10/21/24 10/21/24 Rx #0 tabs aspirin 81 mg capsule 81 mg PO BIDCM blood thinner #60 0 10/21/24 10/21/24 Rx caps doxycycline monohydrate 100 mg 100 mg PO BID antibiotic 10/21/24 10/21/24 History capsule famotidine 20 mg tablet 20 mg PO DAILY stomach 30 days #0 10/21/24 10/21/24 Rx tabs ferrous sulfate 325 mg (65 mg 325 mg PO 1200,1700 supplement 20 10/21/24 10/20/24 Rx iron) tablet (FeroSul) days #0 tabs folic acid 1 mg tablet 1 mg PO BREAKFAST supplement 20 10/21/24 Rx days #0 tabs ondansetron HCl (PF) 4 mg/2 mL 4 mg (2 mL) IV Q6H PRN PRN 5 10/19/24 Rx injection solution Nausea/Vomiting 3 days #0 mL oxycodone 5 mg tablet 5 - 10 mg PO Q4H PRN PRN Pain Scor e 10/21/24 10/21/24 History polyethylene glycol 3350 17 17 g PO BID constipation #119 gram s 10/21/24 Unknown Rx gram/dose oral powder (Miralax) Allergy/AdvReac Type Severity Reaction Status Date / Time promethazine HCl (From Allergy Severe Other Verified 10/16/24 11:13 Phenergan) Penicillins AdvReac Severe Swelling Verified 10/16/24 11:13 red dye AdvReac Severe Unknown Verified 10/16/24 11:13 Tetanus Vaccines and Toxoid AdvReac Intermediate NEEDS Verified 10/16/24 11:13 FOLLOW-UP Family History Father Rheumatoid arthritis Surgical History History of total left knee replacement History of total right knee replacement Hx of right cataract extraction Hx of left cataract extraction History of breast lump removal History of hip surgery Social History household members: none housing: [facility] Smoking Status: Never smoker second hand exposure: No alcohol intake: never substance use type: does not use justice/sikh: Adventist seatbelt use: always do you feel safe at home: Yes ROS Constitutional Constitutional: Denies fatigue, fever(s), poor appetite, weight gain or weight loss Gastrointestinal Gastrointestinal: Denies belching, bloating, change in bowel habits, change in stool character, chewing difficulty, coffee ground emesis, constipation, cramping, diarrhea, dyspepsia, dy (more content not included)... Normal [facility] Stool Occult Blood iFOBon STOB Positive Normal [facility] Comment on above: Performed By: #### M 100.7900 ####[facility] [address] [place], [place], [id number] Stool gastrointestinal hemog lobin detection by immunologic methodOrdered By: Dago Emery on 10-31-2024 Lower GI hemoglobin IA Ql (Stl) Positive Abnormal [facility] HH, Hemoglobin AND Hematocri ton 10-30-2024 Hematocrit (Bld) [Volume fraction] 24.1 % Low 37-47 [facility] Comment on above: Performed By: #### L 501.5200, L501.9520 #### [facility] [address] [place], [place], [id number] [phone] Hemoglobin (Bld) [Mass/Vol] 7.9 g/dL Low 12.0-15.0 [facility] Comment on above: Performed By: #### L 501.5200, L501.9520 #### [facility] [address] [place], [address] HH, Hemoglobin AND Hematocri ton 10-28-2024 Hematocrit (Bld) [Volume fraction] 25.0 % Low 37-47 [facility] Comment on above: Performed By: #### L 100.0600 ####[facility] [address] [place], [address] Hemoglobin (Bld) [Mass/Vol] 8.3 g/dL Low 12.0-15.0 [facility] Comment on above: Performed By: #### L 100.0600 ####[facility] [address] [place], [address] Absolute lymphocyte countOrd ered By: Dago Emery on 10-27-2024 Lymphocytes Auto (Unsp spec) [#/Vol] 1.30 10*3/uL 0.83-4.51 [facility] Absolute neutrophil countOrd ered By: Dago Emery on 10-27-2024 Neutrophils (Bld) [#/Vol] 2.7 10*3/uL 2.0-7.7 [facility] Anion gap in Serum or Plasma Ordered By: Dago Emery on 10-27-2024 Anion gap [Moles/Vol] 10 mmol/L -15 [facility] Automated lymphocyte count a s percentage of total leukocytesOrdered By: Dago Emery on 10-27-2024 Lymphocytes/100 WBC Auto (Unsp spec) 27.7 % - [facility] BUN/creatinine ratioOrdered By: Dago Emery on 10-27-2024 Urea nitrogen/Creatinine [Mass ratio] 24.5 mg/mg High 10- [facility] Basic Metabolic Profile (BMP )on 10-27-2024 BUN/CRE 24.5 RATIO High 01-08 [facility] Comment on above: Performed By: #### L 500.2500, L100.0100 ####[facility] [address] [place], [address] Calcium [Mass/Vol] 8.8 mg/dL Normal 7.6-11.0 [facility] Comment on above: Performed By: #### L 500.2500, L100.0100 ####[facility] [address] [place], [address] Chloride [Moles/Vol] 100 mmol/L Normal 98-108 [facility] Comment on above: Performed By: #### L 500.2500, L100.0100 ####[facility] [address] [place], [address] CO2 [Moles/Vol] 22.3 mmol/L Normal 21.0-32.0 [facility] Comment on above: Performed By: #### L 500.2500, L100.0100 ####[facility] [address] [place], [address] Creatinine [Mass/Vol] 1.16 mg/dL Normal 0.70-1.20 [facility] Comment on above: Performed By: #### L 500.2500, L100.0100 ####[facility] [address] [place], [address] ECRCL 42.03 ml/min Low 50-250 [facility] Comment on above: Performed By: #### L 500.2500, L100.0100 ####[facility] [address] [place], [address] GAP 10 Normal 5-15 [facility] Comment on above: Performed By: #### L 500.2500, L100.0100 ####[facility] [address] [place], [address] GFR/1.73 sq M.predicted among non-blacks MDRD (S/P/Bld) [Vol rate/Area] 47 mL/min/{1.73_m2} Low >60 [facility] Comment on above: Result Comment: mL/m in/1.73m2 CKD-EPI Creatinine Equation (2020) Performed By: #### L 500.2500, L100.0100 ####[facility] [address] [place], [address] Glucose [Mass/Vol] 85 mg/dL Normal 70-99 [facility] Comment on above: Performed By: #### L 500.2500, L100.0100 ####[facility] [address] [place], [address] Potassium [Moles/Vol] 4.5 mmol/L Normal 3.3-5.1 [facility] Comment on above: Performed By: #### L 500.2500, L100.0100 ####[facility] [address] [place], [address] Sodium [Moles/Vol] 133 mmol/L Normal 133-145 [facility] Comment on above: Performed By: #### L 500.2500, L100.0100 ####[facility] [address] [place], [address] Urea nitrogen [Mass/Vol] 28 mg/dL High 4-19 [facility] Comment on above: Performed By: #### L 500.2500, L100.0100 ####[facility] [address] [place], [address] Basophil percentageOrdered B y: Dago Emery on 10-27-2024 Basophils/100 WBC (Bld) 0.4 % 0-1 [facility] Blood polychromasia detectio n by light microscopyOrdered By: Dago Emery on 10-27-2024 Polychromasia LM Ql (Bld) RARE [facility] CBC W/Diff, Automatedon 080 Anisocytosis Ql (Bld) 2+ Normal [facility] Comment on above: Performed By: #### L 500.2500, L100.0100 ####[facility] [address] [place], [address] POLYCHROMASIA RARE Normal [facility] Comment on above: Performed By: #### L 500.2500, L100.0100 ####[facility] [address] [place], [address] RED CELL MORPH NORM C+C Normal NORM C C [facility] Comment on above: Performed By: #### L 500.2500, L100.0100 ####[facility] [address] [place], [address] Carbon dioxide, total [Moles /volume] in Central venous bloodOrdered By: Dago Emery on 10-27-2024 CO2 [Moles/Vol] 22.3 mmol/L 21.0-32.0 [facility] Chloride assayOrdered By: Jorge Emery on 10-27-2024 Chloride [Moles/Vol] 100 mmol/L 98-108 [facility] Eosinophil percentageOrdered By: Dago Emery on 10-27-2024 Eosinophils/100 WBC (Bld) 3.0 % 0-5 [facility] Erythrocyte distribution wid th ratioOrdered By: Dago Emery on 10-27-2024 Erythrocyte distribution width (RBC) [Ratio] 15.9 % High 11.6-14.6 [facility] Erythrocyte distribution wid th standard deviationOrdered By: Dago Emery on 10-27-2024 Erythrocyte distribution width (RBC) [Ratio] 65.3 fl High 35.1-43.9 [facility] Erythrocyte morphology asses smentOrdered By: Dago Emery on 10-27-2024 RBC morphology finding Nom (Bld) NORM C+C NORMAL NORM C&C [facility] Glomerular filtration rate ( GFR) estimation/1.73 sq m using serum, plasma, or whole bOrdered By: Dago Emery on 10-27-2024 GFR/1.73 sq M.predicted among non-blacks MDRD (S/P/Bld) [Vol rate/Area] 47 mL/min/{1.73_m2} Low >60 [place] [facility] Comment on above: mL/min/1.73m2 CKD-EP I Creatinine Equation (2020) Immature granulocytes/100 WB C Auto (Bld)Ordered By: Dago Emery on 10-27-2024 Immature granulocytes/100 WBC (Bld) 1.500 % High 0.0-0.9 [facility] Comment on above: IG% - Immature Granu locytes (promyelocytes, myelocytes and metamyelocytes) > 1% indicates that a LEFT SHIFT is Present. Laboratory - Hematology and Cell countsOrdered By: Dago Emery on 10-27-2024 Anisocytosis Ql (Bld) 2+ [facility] MCV (mean corpuscular volume ) determinationOrdered By: Dago Emery on 10-27-2024 MCV (RBC) [Entitic vol] 113.4 fL High 81-99 [facility] Mean corpuscular hemoglobin (MCH) determinationOrdered By: Dago Emery 10-27-2024 MCH (RBC) [Entitic mass] 37.0 pg High 27.0-32.0 [facility] Mean corpuscular hemoglobin concentration (MCHC) determinationOrdered By: Dago Emery 10-27-2024 MCHC (RBC) [Mass/Vol] 32.7 g/dL 32-36 [facility] Mean platelet volume determi nationOrdered By: Dago Emery 10-27-2024 Platelet mean volume (Bld) [Entitic vol] 9.9 fL 6.2-12.0 [facility] Monocyte percentageOrdered B y: Dago Emery on 10-27-2024 Monocytes/100 WBC (Bld) 10.6 % High 0-10 [facility] Neutrophil percentageOrdered By: Dago Emery on 10-27-2024 Neutrophils/100 WBC (Bld) 56.8 % 47-70 [facility] Nucleated red blood cell per centageOrdered By: Dago Emery 10-27-2024 Nucleated RBC/100 WBC (Bld) [Ratio] 0 % 0-5 [facility] Platelet countOrdered By: Jorge Emery on 10-27-2024 Platelets (Bld) [#/Vol] 230 10*3/uL 150-450 [facility] Potassium measurement (mass/ volume)Ordered By: Dago Emery on 10-27-2024 Potassium (Unsp spec) [Mass/Vol] 4.5 mmol/L 3.3-5.1 [facility] RBC Auto (Bld) [#/Vol]Ordere d By: Dago Emery on 10-27-2024 RBC (Bld) [#/Vol] 2.16 10*6/uL Low 4.2-5.4 [facility] Serum creatinine measurement (mass/volume)Ordered By: Dago Emery on 10-27-2024 Creatinine [Mass/Vol] 1.16 mg/dL 0.70-1.20 [facility] Serum glucose measurement (m ass/volume)Ordered By: Dago Emery on 10-27-2024 Glucose [Mass/Vol] 85 mg/dL 70-99 [facility] Serum or plasma calcium niels urement (mass/volume)Ordered By: Dago Emery on 10-27-2024 Calcium [Mass/Vol] 8.8 mg/dL 7.6-11.0 [facility] Serum or plasma urea nitroge n measurement (mass/volume)Ordered By: Dago Emery on 10-27-2024 Urea nitrogen [Mass/Vol] 28 mg/dL High 4-19 [facility] Sodium levelOrdered By: Dago Emery on 10-27-2024 Sodium [Moles/Vol] 133 mmol/L 133-145 [facility] White blood cell (WBC) count Ordered By: Dago Emery on 10-27-2024 WBC (Bld) [#/Vol] 4.7 10*3/uL 4.4-11.0 [facility] Basic Metabolic Profile (BMP )on 10-22-2024 BUN/CRE 26.3 RATIO High 10-20 [facility] Comment on above: Performed By: #### L 100.0100, L500.4050 #### [facility] [address] [place], [place], [id number] Calcium [Mass/Vol] 8.9 mg/dL Normal 7.6-11.0 [facility] Comment on above: Performed By: #### L 100.0100, L500.4050 #### [facility] [address] [place], [address] Chloride [Moles/Vol] 103 mmol/L Normal 98-108 [facility] [place] Comment on above: Performed By: #### L 100.0100, L500.4050 #### [facility] [address] [place], [address] CO2 [Moles/Vol] 22.0 mmol/L Normal 21.0-32.0 [facility] Comment on above: Performed By: #### L 100.0100, L500.4050 #### [facility] [address] [place], [address] Creatinine [Mass/Vol] 0.84 mg/dL Normal 0.70-1.20 [facility] Comment on above: Performed By: #### L 100.0100, L500.4050 #### [facility] [address] [place], [address] ECRCL 57.97 ml/min Normal 50-250 [facility] Comment on above: Performed By: #### L 100.0100, L500.4050 #### [facility] [address] [place], [address] GAP 10 Normal 5-15 [facility] Comment on above: Performed By: #### L 100.0100, L500.4050 #### [facility] [address] [place], [address] GFR/1.73 sq M.predicted among non-blacks MDRD (S/P/Bld) [Vol rate/Area] 70 mL/min/{1.73_m2} Normal >60 [facility] Comment on above: Result Comment: mL/m in/1.73m2 CKD-EPI Creatinine Equation (2020) Performed By: #### L 100.0100, L500.4050 #### [facility] [address] [place], [address] Glucose [Mass/Vol] 94 mg/dL Normal 70-99 [facility] Comment on above: Performed By: #### L 100.0100, L500.4050 #### [facility] [address] [place], [address] Potassium [Moles/Vol] 4.0 mmol/L Normal 3.3-5.1 [facility] Comment on above: Performed By: #### L 100.0100, L500.4050 #### [facility] [address] [place], [address] Sodium [Moles/Vol] 135 mmol/L Normal 133-145 [facility] Comment on above: Performed By: #### L 100.0100, L500.4050 #### [facility] [address] [place], [address] Urea nitrogen [Mass/Vol] 22 mg/dL High 4-19 [facility] Comment on above: Performed By: #### L 100.0100, L500.4050 #### [facility] [address] [place], [address] CBC W/Diff, Automatedon 08-0 3-2024 Absolute Lymph 1.22 X10 3/uL Normal 0.83-4.51 [facility] Comment on above: Performed By: #### L 100.0100, L500.4050 #### [facility] [address] [place], [address] Absolute Neut 3.2 X10 3/uL Normal 2.0-7.7 [facility] Comment on above: Performed By: #### L 100.0100, L500.4050 #### [facility] [address] [place], [address] Basophils/100 WBC (Bld) 0.6 % Normal 0-1 [facility] Comment on above: Performed By: #### L 100.0100, L500.4050 #### [facility] [address] [place], [address] Eosinophils/100 WBC (Bld) 1.6 % Normal 0-5 [facility] Comment on above: Performed By: #### L 100.0100, L500.4050 #### [facility] [address] [place], [address] Erythrocyte distribution width (RBC) [Ratio] 15.7 % High 11.6-14.6 [facility] Comment on above: Performed By: #### L 100.0100, L500.4050 #### [facility] [address] [place], [address] Hematocrit (Bld) [Volume fraction] 26.6 % Low 37-47 [facility] Comment on above: Performed By: #### L 100.0100, L500.4050 #### [facility] [address] [place], [address] Hemoglobin (Bld) [Mass/Vol] 8.8 g/dL Low 12.0-15.0 [facility] Comment on above: Performed By: #### L 100.0100, L500.4050 #### [facility] [address] [place], [address] IG% 0.600 Normal 0.0-0.9 [facility] Comment on above: Result Comment: IG% - Immature Granulocytes (promyelocytes, myelocytes and metamyelocytes) > 1% indicates that a LEFT SHIFT is Present. Performed By: #### L 100.0100, L500.4050 #### [facility] [address] [place], [address] Lymphocytes/100 WBC (Bld) 24.1 % Normal 19-41 [facility] Comment on above: Performed By: #### L 100.0100, L500.4050 #### [facility] [address] [place], [address] MCH (RBC) [Entitic mass] 37.0 pg High 27.0-32.0 [facility] Comment on above: Performed By: #### L 100.0100, L500.4050 #### [facility] [address] [place], [address] MCHC (RBC) [Mass/Vol] 33.1 g/dL Normal 32-36 [facility] Comment on above: Performed By: #### L 100.0100, L500.4050 #### [facility] [address] [place], [address] MCV (RBC) [Entitic vol] 111.8 fL High 81-99 [facility] Comment on above: Performed By: #### L 100.0100, L500.4050 #### [facility] [address] [place], [address] Monocytes/100 WBC (Bld) 10.1 % High 0-10 [facility] Comment on above: Performed By: #### L 100.0100, L500.4050 #### [facility] [address] [place], [address] Neutrophils/100 WBC (Bld) 63.0 % Normal 47-70 [facility] Comment on above: Performed By: #### L 100.0100, L500.4050 #### [facility] [address] [place], [address] Nucleated RBC (Bld) [#/Vol] 0 10*3/uL Normal 0-5 [facility] Comment on above: Performed By: #### L 100.0100, L500.4050 #### [facility] [address] [place], [address] Platelet mean volume (Bld) [Entitic vol] 10.4 fL Normal 6.2-12.0 [facility] Comment on above: Performed By: #### L 100.0100, L500.4050 #### [facility] [address] [place], [address] Platelets (Bld) [#/Vol] 248 10*3/uL Normal 150-450 [facility] Comment on above: Performed By: #### L 100.0100, L500.4050 #### [facility] [address] [place], [address] RBC (Bld) [#/Vol] 2.38 10*6/uL Low 4.2-5.4 [facility] Comment on above: Performed By: #### L 100.0100, L500.4050 #### [facility] [address] [place], [address] RDW SD 64.2 fl High 35.1-43.9 [facility] Comment on above: Performed By: #### L 100.0100, L500.4050 #### [facility] [address] [place], [address] WBC (Bld) [#/Vol] 5.1 10*3/uL Normal 4.4-11.0 [facility] Comment on above: Performed By: #### L 100.0100, L500.4050 #### [facility] [address] [place], [address] Absolute lymphocyte countOrd ered By: Nela Wallace on 10-21-2024 Lymphocytes Auto (Unsp spec) [#/Vol] 1.47 10*3/uL 0.83-4.51 [facility] Absolute neutrophil countOrd ered By: Nela Wallace on 10-21-2024 Neutrophils (Bld) [#/Vol] 3.0 10*3/uL 2.0-7.7 [facility] Anion gap in Serum or Plasma Ordered By: Nela Wallace on 10-21-2024 Anion gap [Moles/Vol] 10 mmol/L 5-15 [facility] Automated lymphocyte count a s percentage of total leukocytesOrdered By: Nela Wallace on 10-21-2024 Lymphocytes/100 WBC Auto (Unsp spec) 27.2 % - [facility] BUN/creatinine ratioOrdered By: Nela Wallace on 10-21-2024 Urea nitrogen/Creatinine [Mass ratio] 23.7 mg/mg High 01-08 [facility] Basic Metabolic Profile (BMP )on 10-21-2024 BUN/CRE 23.7 RATIO High - [facility] Comment on above: Performed By: #### L 501.5200, L501.9520 #### [facility] [address] [place], [address] Calcium [Mass/Vol] 8.5 mg/dL Normal 7.6-11.0 [facility] Comment on above: Performed By: #### L 501.5200, L501.9520 #### [facility] [address] [place], [address] Chloride [Moles/Vol] 103 mmol/L Normal 98-108 [facility] [place] Comment on above: Performed By: #### L 501.5200, L501.9520 #### [facility] [address] [place], [address] CO2 [Moles/Vol] 21.9 mmol/L Normal 21.0-32.0 [facility] Comment on above: Performed By: #### L 501.5200, L501.9520 #### [facility] [address] [place], [address] Creatinine [Mass/Vol] 1.04 mg/dL Normal 0.70-1.20 [facility] Comment on above: Performed By: #### L 501.5200, L501.9520 #### [facility] [address] [place], [address] ECRCL 45.68 ml/min Low 50-250 [facility] Comment on above: Performed By: #### L 501.5200, L501.9520 #### [facility] [address] [place], [address] GAP 10 Normal 5-15 [facility] Comment on above: Performed By: #### L 501.5200, L501.9520 #### [facility] [address] [place], [address] GFR/1.73 sq M.predicted among non-blacks MDRD (S/P/Bld) [Vol rate/Area] 54 mL/min/{1.73_m2} Low >60 [facility] Comment on above: Result Comment: mL/m in/1.73m2 CKD-EPI Creatinine Equation (2020) Performed By: #### L 501.5200, L501.9520 #### [facility] [address] [place], [address] Glucose [Mass/Vol] 86 mg/dL Normal 70-99 [facility] Comment on above: Performed By: #### L 501.5200, L501.9520 #### [facility] [address] [place], [address] Potassium [Moles/Vol] 3.8 mmol/L Normal 3.3-5.1 [facility] Comment on above: Performed By: #### L 501.5200, L501.9520 #### [facility] [address] [place], [address] Sodium [Moles/Vol] 135 mmol/L Normal 133-145 [facility] Comment on above: Performed By: #### L 501.5200, L501.9520 #### [facility] [address] [place], [address] Urea nitrogen [Mass/Vol] 25 mg/dL High 4-19 [facility] Comment on above: Performed By: #### L 501.5200, L501.9520 #### [facility] [address] [place], [address] Basophil percentageOrdered B y: Nela Wallace on 10-21-2024 Basophils/100 WBC (Bld) 0.4 % 0-1 [facility] CBC W/Diff, Automatedon Absolute Lymph 1.47 X10 3/uL Normal 0.83-4.51 [facility] Comment on above: Performed By: #### L 100.0100 ####[facility] [address] [place], [address] Absolute Neut 3.0 X10 3/uL Normal 2.0-7.7 [facility] Comment on above: Performed By: #### L 100.0100 ####[facility] [address] [place], [address] Basophils/100 WBC (Bld) 0.4 % Normal 0-1 [facility] Comment on above: Performed By: #### L 100.0100 ####[facility] [address] [place], [address] Eosinophils/100 WBC (Bld) 1.9 % Normal 0-5 [facility] Comment on above: Performed By: #### L 100.0100 ####[facility] [address] [place], [address] Erythrocyte distribution width (RBC) [Ratio] 15.8 % High 11.6-14.6 [facility] Comment on above: Performed By: #### L 100.0100 ####[facility] [address] [place], [address] Hematocrit (Bld) [Volume fraction] 25.5 % Low 37-47 [facility] Comment on above: Performed By: #### L 100.0100 ####[facility] [address] [place], [address] Hemoglobin (Bld) [Mass/Vol] 8.7 g/dL Low 12.0-15.0 [facility] Comment on above: Performed By: #### L 100.0100 ####[facility] [address] [place], [address] IG% 0.600 Normal 0.0-0.9 [facility] Comment on above: Result Comment: IG% - Immature Granulocytes (promyelocytes, myelocytes and metamyelocytes) > 1% indicates that a LEFT SHIFT is Present. Performed By: #### L 100.0100 ####[facility] [address] [place], [address] Lymphocytes/100 WBC (Bld) 27.2 % Normal 19-41 [facility] Comment on above: Performed By: #### L 100.0100 ####[facility] [address] [place], [address] MCH (RBC) [Entitic mass] 37.8 pg High 27.0-32.0 [facility] Comment on above: Performed By: #### L 100.0100 ####[facility] [address] [place], [address] MCHC (RBC) [Mass/Vol] 34.1 g/dL Normal 32-36 [facility] Comment on above: Performed By: #### L 100.0100 ####[facility] [address] [place], [address] MCV (RBC) [Entitic vol] 110.9 fL High 81-99 [facility] Comment on above: Performed By: #### L 100.0100 ####[facility] [address] [place], [address] Monocytes/100 WBC (Bld) 15.2 % High 0-10 [facility] Comment on above: Performed By: #### L 100.0100 ####[facility] [address] [place], [address] Neutrophils/100 WBC (Bld) 54.7 % Normal 47-70 [facility] Comment on above: Performed By: #### L 100.0100 ####[facility] [address] [place], [address] Nucleated RBC (Bld) [#/Vol] 0 10*3/uL Normal 0-5 [facility] Comment on above: Performed By: #### L 100.0100 ####[facility] [address] [place], [address] Platelet mean volume (Bld) [Entitic vol] 10.8 fL Normal 6.2-12.0 [facility] Comment on above: Performed By: #### L 100.0100 ####[facility] [address] [place], [address] Platelets (Bld) [#/Vol] 224 10*3/uL Normal 150-450 [facility] Comment on above: Performed By: #### L 100.0100 ####[facility] [address] [place], [address] RBC (Bld) [#/Vol] 2.30 10*6/uL Low 4.2-5.4 [facility] Comment on above: Performed By: #### L 100.0100 ####[facility] [address] [place], [address] RDW SD 64.2 fl High 35.1-43.9 [facility] Comment on above: Performed By: #### L 100.0100 ####[facility] [address] [place], [address] WBC (Bld) [#/Vol] 5.4 10*3/uL Normal 4.4-11.0 [facility] Comment on above: Performed By: #### L 100.0100 ####[facility] [address] [place], [address] Carbon dioxide, total [Moles /volume] in Central venous bloodOrdered By: Nela Wallace on 10-21-2024 CO2 [Moles/Vol] 21.9 mmol/L 21.0-32.0 [facility] Chloride assayOrdered By: Bharathi Wallace on 10-21-2024 Chloride [Moles/Vol] 103 mmol/L 98-108 [facility] [place] Eosinophil percentageOrdered By: Nela Wallace on 10-21-2024 Eosinophils/100 WBC (Bld) 1.9 % 0-5 [facility] Erythrocyte distribution wid th ratioOrdered By: Nela Wallace on 10-21-2024 Erythrocyte distribution width (RBC) [Ratio] 15.8 % High 11.6-14.6 [facility] Erythrocyte distribution wid th standard deviationOrdered By: Nelamercy Wallace on 10-21-2024 Erythrocyte distribution width (RBC) [Ratio] 64.2 fl High 35.1-43.9 [facility] Glomerular filtration rate ( GFR) estimation/1.73 sq m using serum, plasma, or whole bOrdered By: Nela Wallace on 10-21-2024 GFR/1.73 sq M.predicted among non-blacks MDRD (S/P/Bld) [Vol rate/Area] 54 mL/min/{1.73_m2} Low >60 [facility] Comment on above: mL/min/1.73m2 CKD-EP I Creatinine Equation (2020) Hematocrit Auto (Bld) [Volum e fraction]Ordered By: Nela Wallace on 10-21-2024 Hematocrit (Bld) [Volume fraction] 25.5 % Low 37-47 [facility] Hemoglobin measurementOrdere d By: Nela Wallace on 10-21-2024 Hemoglobin (Bld) [Mass/Vol] 8.7 g/dL Low 12.0-15.0 [facility] Immature granulocytes/100 WB C Auto (Bld)Ordered By: Nela Wallace on 10-21-2024 Immature granulocytes/100 WBC (Bld) 0.600 % 0.0-0.9 [facility] Comment on above: IG% - Immature Granu locytes (promyelocytes, myelocytes and metamyelocytes) > 1% indicates that a LEFT SHIFT is Present. MCV (mean corpuscular volume ) determinationOrdered By: Nela Wallace on 10-21-2024 MCV (RBC) [Entitic vol] 110.9 fL High 81-99 [facility] Mean corpuscular hemoglobin (MCH) determinationOrdered By: Nela Wallace on 10-21-2024 MCH (RBC) [Entitic mass] 37.8 pg High 27.0-32.0 [facility] Mean corpuscular hemoglobin concentration (MCHC) determinationOrdered By: Nela Wallace on 10-21-2024 MCHC (RBC) [Mass/Vol] 34.1 g/dL 32-36 [facility] Mean platelet volume determi nationOrdered By: Nela Wallace on 10-21-2024 Platelet mean volume (Bld) [Entitic vol] 10.8 fL 6.2-12.0 [facility] Monocyte percentageOrdered B y: Nela Wallace on 10-21-2024 Monocytes/100 WBC (Bld) 15.2 % High 0-10 [facility] Neutrophil percentageOrdered By: Nela Wallace on 10-21-2024 Neutrophils/100 WBC (Bld) 54.7 % 47-70 [facility] Nucleated red blood cell per centageOrdered By: Nela Wallace on 10-21-2024 Nucleated RBC/100 WBC (Bld) [Ratio] 0 % 0-5 [facility] Platelet countOrdered By: Bharathi Wallace on 10-21-2024 Platelets (Bld) [#/Vol] 224 10*3/uL 150-450 [facility] Potassium measurement (mass/ volume)Ordered By: Nela Wallace on 10-21-2024 Potassium (Unsp spec) [Mass/Vol] 3.8 mmol/L 3.3-5.1 [facility] RBC Auto (Bld) [#/Vol]Ordere d By: Nela Wallace on 10-21-2024 RBC (Bld) [#/Vol] 2.30 10*6/uL Low 4.2-5.4 [facility] Serum creatinine measurement (mass/volume)Ordered By: Nela Wallace on 10-21-2024 Creatinine [Mass/Vol] 1.04 mg/dL 0.70-1.20 [facility] Serum glucose measurement (m ass/volume)Ordered By: Nela Wallace on 10-21-2024 Glucose [Mass/Vol] 86 mg/dL 70-99 [facility] Serum or plasma calcium niels urement (mass/volume)Ordered By: Nela Wallace on 10-21-2024 Calcium [Mass/Vol] 8.5 mg/dL 7.6-11.0 [facility] Serum or plasma urea nitroge n measurement (mass/volume)Ordered By: Nela Wallace on 10-21-2024 Urea nitrogen [Mass/Vol] 25 mg/dL High 4-19 [facility] Sodium levelOrdered By: Tracie Wallace on 10-21-2024 Sodium [Moles/Vol] 135 mmol/L 133-145 [facility] White blood cell (WBC) count Ordered By: Nela Wallace on 10-21-2024 WBC (Bld) [#/Vol] 5.4 10*3/uL 4.4-11.0 [facility] Basic Metabolic Profile (BMP )on 10-20-2024 BUN/CRE 17.8 RATIO Normal 10-20 [facility] Comment on above: Performed By: #### L 501.5200, L501.9520 #### [facility] [address] [place], [address] Calcium [Mass/Vol] 8.3 mg/dL Normal 7.6-11.0 [facility] Comment on above: Performed By: #### L 501.5200, L501.9520 #### [facility] [address] [place], [address] Chloride [Moles/Vol] 105 mmol/L Normal 98-108 [facility] [place] Comment on above: Performed By: #### L 501.5200, L501.9520 #### [facility] [address] [place], [address] CO2 [Moles/Vol] 21.4 mmol/L Normal 21.0-32.0 [facility] Comment on above: Performed By: #### L 501.5200, L501.9520 #### [facility] [address] [place], [address] Creatinine [Mass/Vol] 0.86 mg/dL Normal 0.70-1.20 [facility] Comment on above: Performed By: #### L 501.5200, L501.9520 #### [facility] [address] [place], [address] ECRCL 55.24 ml/min Normal 50-250 [facility] Comment on above: Performed By: #### L 501.5200, L501.9520 #### [facility] [address] [place], [address] GAP 10 Normal 5-15 [facility] Comment on above: Performed By: #### L 501.5200, L501.9520 #### [facility] [address] [place], [address] GFR/1.73 sq M.predicted among non-blacks MDRD (S/P/Bld) [Vol rate/Area] 68 mL/min/{1.73_m2} Normal >60 [facility] Comment on above: Result Comment: mL/m in/1.73m2 CKD-EPI Creatinine Equation (2020) Performed By: #### L 501.5200, L501.9520 #### [facility] [address] [place], [address] Glucose [Mass/Vol] 82 mg/dL Normal 70-99 [facility] Comment on above: Performed By: #### L 501.5200, L501.9520 #### [facility] [address] [place], [address] Potassium [Moles/Vol] 3.8 mmol/L Normal 3.3-5.1 [facility] Comment on above: Performed By: #### L 501.5200, L501.9520 #### [facility] [address] [place], [address] Sodium [Moles/Vol] 136 mmol/L Normal 133-145 [facility] Comment on above: Performed By: #### L 501.5200, L501.9520 #### [facility] [address] [place], [address] Urea nitrogen [Mass/Vol] 15 mg/dL Normal 4-19 [facility] Comment on above: Performed By: #### L 501.5200, L501.9520 #### [facility] [address] [place], [address] CBC[facility]Complete [facility] Erythrocyte distribution width (RBC) [Ratio] 15.5 % High 11.6-14.6 [facility] Comment on above: Performed By: #### L 501.5200, L501.9520 #### [facility] [address] [place], [address] Hematocrit (Bld) [Volume fraction] 27.0 % Low 37-47 [facility] Comment on above: Performed By: #### L 501.5200, [id number] #### [facility] [address] [place], [address] Hemoglobin (Bld) [Mass/Vol] 9.1 g/dL Low 12.0-15.0 [facility] Comment on above: Performed By: #### L 501.5200, L501.9520 #### [facility] [address] [place], [address] MCH (RBC) [Entitic mass] 37.6 pg High 27.0-32.0 [facility] Comment on above: Performed By: #### L 501.5200, L501.9520 #### [facility] [address] [place], [address] MCHC (RBC) [Mass/Vol] 33.7 g/dL Normal 32-36 [facility] Comment on above: Performed By: #### L 501.5200, L501.9520 #### [facility] [address] [place], [address] MCV (RBC) [Entitic vol] 111.6 fL High 81-99 [facility] Comment on above: Performed By: #### L 501.5200, L501.9520 #### [facility] [address] [place], [address] Platelet mean volume (Bld) [Entitic vol] 10.8 fL Normal 6.2-12.0 [facility] Comment on above: Performed By: #### L 501.5200, L501.9520 #### [facility] [address] [place], [address] Platelets (Bld) [#/Vol] 210 10*3/uL Normal 150-450 [facility] Comment on above: Performed By: #### L 501.5200, L501.9520 #### [facility] [address] [place], [address] RBC (Bld) [#/Vol] 2.42 10*6/uL Low 4.2-5.4 [facility] Comment on above: Performed By: #### L 501.5200, L501.9520 #### [facility] [address] [place], [address] RDW SD 64.2 fl High 35.1-43.9 [facility] Comment on above: Performed By: #### L 501.5200, L501.9520 #### [facility] [address] [place], [address] WBC (Bld) [#/Vol] 7.0 10*3/uL Normal 4.4-11.0 [facility] Comment on above: Performed By: #### L 501.5200, L501.9520 #### [facility] [address] [place], [address] Basic Metabolic Profile (BMP )on 10-19-2024 BUN/CRE 16.2 RATIO Normal 10-20 [facility] Comment on above: Performed By: #### L 501.5200, L501.9520 #### [facility] [address] [place], [address] Calcium [Mass/Vol] 8.9 mg/dL Normal 7.6-11.0 [facility] Comment on above: Performed By: #### L 501.5200, L501.9520 #### [facility] [address] [place], [address] Chloride [Moles/Vol] 98 mmol/L Normal 98-108 [facility] Comment on above: Performed By: #### L 501.5200, L501.9520 #### [facility] [address] [place], [address] CO2 [Moles/Vol] 21.9 mmol/L Normal 21.0-32.0 [facility] Comment on above: Performed By: #### L 501.5200, L501.9520 #### [facility] [address] [place], [address] Creatinine [Mass/Vol] 1.02 mg/dL Normal 0.70-1.20 [facility] Comment on above: Performed By: #### L 501.5200, L501.9520 #### [facility] [address] [place], [address] ECRCL 46.57 ml/min Low 50-250 [facility] Comment on above: Performed By: #### L 501.5200, L501.9520 #### [facility] [address] [place], [address] GAP 11 Normal 5-15 [facility] Comment on above: Performed By: #### L 501.5200, L501.9520 #### [facility] [address] [place], [address] GFR/1.73 sq M.predicted among non-blacks MDRD (S/P/Bld) [Vol rate/Area] 55 mL/min/{1.73_m2} Low >60 [facility] Comment on above: Result Comment: mL/m in/1.73m2 CKD-EPI Creatinine Equation (2020) Performed By: #### L 501.5200, L501.9520 #### [facility] [address] [place], [address] Glucose [Mass/Vol] 94 mg/dL Normal 70-99 [facility] Comment on above: Performed By: #### L 501.5200, L501.9520 #### [facility] [address] [place], [address] Potassium [Moles/Vol] 4.1 mmol/L Normal 3.3-5.1 [facility] Comment on above: Performed By: #### L 501.5200, L501.9520 #### [facility] [address] [place], [address] Sodium [Moles/Vol] 131 mmol/L Low 133-145 [facility] Comment on above: Performed By: #### L 501.5200, L501.9520 #### [facility] [address] [place], [address] Urea nitrogen [Mass/Vol] 17 mg/dL Normal 4-19 [facility] Comment on above: Performed By: #### L 501.5200, L501.9520 #### [facility] [address] [place], [address] Bedside Glucoseon 10-19-2024 FINGERSTICK GLU 120 mg/dL High 74-106 [facility] Comment on above: Result Comment: TRACEY SALDAÑA OF PATIENT CARE PER NURSING PROTOCOL Performed By: #### L 501.080 ####[facility] [address] [place], [address] CBC W/Diff, Automatedon - Absolute Lymph 1.13 X10 3/uL Normal 0.83-4.51 [facility] Comment on above: Performed By: #### L 501.5200, L501.9520 #### [facility] [address] [place], [address] Absolute Neut 5.2 X10 3/uL Normal 2.0-7.7 [facility] Comment on above: Performed By: #### L 501.5200, L501.9520 #### [facility] [address] [place], [address] Basophils/100 WBC (Bld) 0.3 % Normal 0-1 [facility] Comment on above: Performed By: #### L 501.5200, L501.9520 #### [facility] [address] [place], [address] Eosinophils/100 WBC (Bld) 0.9 % Normal 0-5 [facility] Comment on above: Performed By: #### L 501.5200, L501.9520 #### [facility] [address] [place], [address] Erythrocyte distribution width (RBC) [Ratio] 15.5 % High 11.6-14.6 [facility] Comment on above: Performed By: #### L 501.5200, L501.9520 #### [facility] [address] [place], [address] Hematocrit (Bld) [Volume fraction] 27.6 % Low 37-47 [facility] Comment on above: Performed By: #### L 501.5200, L501.9520 #### [facility] [address] [place], [address] Hemoglobin (Bld) [Mass/Vol] 9.4 g/dL Low 12.0-15.0 [facility] Comment on above: Performed By: #### L 501.5200, L501.9520 #### [facility] [address] [place], [address] IG% 0.600 Normal 0.0-0.9 [facility] Comment on above: Result Comment: IG% - Immature Granulocytes (promyelocytes, myelocytes and metamyelocytes) > 1% indicates that a LEFT SHIFT is Present. Performed By: #### L 501.5200, L501.9520 #### [facility] [address] [place], [address] Lymphocytes/100 WBC (Bld) 14.4 % Low 19-41 [facility] Comment on above: Performed By: #### L 501.5200, L501.9520 #### [facility] [address] [place], [address] MCH (RBC) [Entitic mass] 37.8 pg High 27.0-32.0 [facility] Comment on above: Performed By: #### L 501.5200, L501.9520 #### [facility] [address] [place], [address] MCHC (RBC) [Mass/Vol] 34.1 g/dL Normal 32-36 [facility] Comment on above: Performed By: #### L 501.5200, L501.9520 #### [facility] [address] [place], [address] MCV (RBC) [Entitic vol] 110.8 fL High 81-99 [facility] Comment on above: Performed By: #### L 501.5200, L501.9520 #### [facility] [address] [place], [address] Monocytes/100 WBC (Bld) 17.1 % High 0-10 [facility] Comment on above: Performed By: #### L 501.5200, L501.9520 #### [facility] [address] [place], [address] Neutrophils/100 WBC (Bld) 66.7 % Normal 47-70 [facility] Comment on above: Performed By: #### L 501.5200, L501.9520 #### [facility] [address] [place], [address] Nucleated RBC (Bld) [#/Vol] 0 10*3/uL Normal 0-5 [facility] Comment on above: Performed By: #### L 501.5200, L501.9520 #### [facility] [address] [place], [address] Platelet mean volume (Bld) [Entitic vol] 11.0 fL Normal 6.2-12.0 [facility] Comment on above: Performed By: #### L 501.5200, L501.9520 #### [facility] [address] [place], [address] Platelets (Bld) [#/Vol] 181 10*3/uL Normal 150-450 [facility] Comment on above: Performed By: #### L 501.5200, L501.9520 #### [facility] [address] [place], [address] RBC (Bld) [#/Vol] 2.49 10*6/uL Low 4.2-5.4 [facility] Comment on above: Performed By: #### L 501.5200, L501.9520 #### [facility] [address] [place], [address] RDW SD 62.7 fl High 35.1-43.9 [facility] Comment on above: Performed By: #### L 501.5200, L501.9520 #### [facility] [address] [place], [address] WBC (Bld) [#/Vol] 7.8 10*3/uL Normal 4.4-11.0 [facility] Comment on above: Performed By: #### L 501.5200, L501.9520 #### [facility] [address] [place], [address] Absolute Neut Normal 2.0-7.7 [facility] Comment on above: Result Comment: Canc elled via OM: Duplicate Order Performed By: #### L 501.5200, L501.9520 #### [facility] [address] [place], [address] HCT Normal 37-47 [facility] Comment on above: Result Comment: Canc elled via OM: Duplicate Order Performed By: #### L 501.5200, L501.9520 #### [facility] [address] [place], [address] HGB Normal 12.0-15.0 [facility] Comment on above: Result Comment: Canc elled via OM: Duplicate Order Performed By: #### L 501.5200, L501.9520 #### [facility] [address] [place], [address] MCH Normal 27.0-32.0 [facility] Comment on above: Result Comment: Canc elled via OM: Duplicate Order Performed By: #### L 501.5200, L501.9520 #### [facility] [address] [place], [address] MCHC Normal 32-36 [facility] Comment on above: Result Comment: Canc elled via OM: Duplicate Order Performed By: #### L 501.5200, L501.9520 #### [facility] [address] [place], [address] MCV Normal 81-99 [facility] Comment on above: Result Comment: Canc elled via OM: Duplicate Order Performed By: #### L 501.5200, L501.9520 #### [facility] [address] [place], [address] NEUT% Normal 47-70 [facility] Comment on above: Result Comment: Canc elled via OM: Duplicate Order Performed By: #### L 501.5200, L501.9520 #### [facility] [address] [place], [address] PLT Normal 150-450 [facility] Comment on above: Result Comment: Canc elled via OM: Duplicate Order Performed By: #### L 501.5200, L501.9520 #### [facility] [address] [place], [address] RBC Normal 4.2-5.4 [facility] Comment on above: Result Comment: Canc elled via OM: Duplicate Order Performed By: #### L 501.5200, L501.9520 #### [facility] [address] [place], [address] RDW CV Normal 11.6-14.6 [facility] Comment on above: Result Comment: Canc elled via OM: Duplicate Order Performed By: #### L 501.5200, L501.9520 #### [facility] [address] [place], [address] RDW SD Normal 35.1-43.9 [facility] Comment on above: Result Comment: Canc elled via OM: Duplicate Order Performed By: #### L 501.5200, L501.9520 #### [facility] [address] [place], [address] WBC Normal 4.4-11.0 [facility] Comment on above: Result Comment: Canerasto elled via OM: Duplicate Order Performed By: #### L 501.5200, L501.9520 #### [facility] [address] [place], [address] [facility] deOrdered By: Geo Rodriguez on 10-19-2024 Glucose [Mass/Vol] 120 mg/dL High 74-106 [facility] Comment on above: MANAGEMENT OF PATIEN T CARE PER NURSING PROTOCOL Basic Metabolic Profile (BMP )on 10-18-2024 BUN/CRE 18.0 RATIO Normal 10-20 [facility] Comment on above: Performed By: #### L 100.0100, L500.4050 #### [facility] [address] [place], [address] Calcium [Mass/Vol] 8.5 mg/dL Normal 7.6-11.0 [facility] Comment on above: Performed By: #### L 100.0100, L500.4050 #### [facility] [address] [place], [address] Chloride [Moles/Vol] 99 mmol/L Normal 98-108 [facility] Comment on above: Performed By: #### L 100.0100, L500.4050 #### [facility] [address] [place], [address] CO2 [Moles/Vol] 22.0 mmol/L Normal 21.0-32.0 [facility] Comment on above: Performed By: #### L 100.0100, L500.4050 #### [facility] [address] [place], [address] Creatinine [Mass/Vol] 0.92 mg/dL Normal 0.70-1.20 [facility] Comment on above: Performed By: #### L 100.0100, L500.4050 #### [facility] [address] [place], [address] ECRCL 51.63 ml/min Normal 50-250 [facility] Comment on above: Performed By: #### L 100.0100, L500.4050 #### [facility] [address] [place], [address] GAP 11 Normal 5-15 [facility] Comment on above: Performed By: #### L 100.0100, L500.4050 #### [facility] [address] [place], [address] GFR/1.73 sq M.predicted among non-blacks MDRD (S/P/Bld) [Vol rate/Area] 63 mL/min/{1.73_m2} Normal >60 [facility] Comment on above: Result Comment: mL/m in/1.73m2 CKD-EPI Creatinine Equation (2020) Performed By: #### L 100.0100, L500.4050 #### [facility] [address] [place], [address] Glucose [Mass/Vol] 96 mg/dL Normal 70-99 [facility] Comment on above: Performed By: #### L 100.0100, L500.4050 #### [facility] [address] [place], [address] Potassium [Moles/Vol] 3.7 mmol/L Normal 3.3-5.1 [facility] Comment on above: Performed By: #### L 100.0100, L500.4050 #### [facility] [address] [place], [address] Sodium [Moles/Vol] 133 mmol/L Normal 133-145 [facility] Comment on above: Performed By: #### L 100.0100, L500.4050 #### [facility] [address] [place], [address] Urea nitrogen [Mass/Vol] 17 mg/dL Normal 4-19 [facility] Comment on above: Performed By: #### L 100.0100, L500.4050 #### [facility] [address] [place], [address] CBC W/Diff, Automatedon 07-3 0-2024 Absolute Lymph 0.76 X10 3/uL Low 0.83-4.51 [facility] Comment on above: Performed By: #### L 100.0100, L500.4050 #### [facility] [address] [place], [address] Absolute Neut 5.0 X10 3/uL Normal 2.0-7.7 [facility] Comment on above: Performed By: #### L 100.0100, L500.4050 #### [facility] [address] [place], [address] Basophils/100 WBC (Bld) 0.1 % Normal 0-1 [facility] Comment on above: Performed By: #### L 100.0100, L500.4050 #### [facility] [address] [place], [address] Eosinophils/100 WBC (Bld) 0.4 % Normal 0-5 [facility] Comment on above: Performed By: #### L 100.0100, L500.4050 #### [facility] [address] [place], [address] Erythrocyte distribution width (RBC) [Ratio] 15.6 % High 11.6-14.6 [facility] Comment on above: Performed By: #### L 100.0100, L500.4050 #### [facility] [address] [place], [address] Hematocrit (Bld) [Volume fraction] 28.2 % Low 37-47 [facility] Comment on above: Performed By: #### L 100.0100, L500.4050 #### [facility] [address] [place], [address] Hemoglobin (Bld) [Mass/Vol] 9.4 g/dL Low 12.0-15.0 [facility] Comment on above: Performed By: #### L 100.0100, L500.4050 #### [facility] [address] [place], [address] IG% 0.300 Normal 0.0-0.9 [facility] Comment on above: Result Comment: IG% - Immature Granulocytes (promyelocytes, myelocytes and metamyelocytes) > 1% indicates that a LEFT SHIFT is Present. Performed By: #### L 100.0100, L500.4050 #### [facility] [address] [place], [address] Lymphocytes/100 WBC (Bld) 11.1 % Low 19-41 [facility] Comment on above: Performed By: #### L 100.0100, L500.4050 #### [facility] [address] [place], [address] MCH (RBC) [Entitic mass] 36.9 pg High 27.0-32.0 [facility] Comment on above: Performed By: #### L 100.0100, L500.4050 #### [facility] [address] [place], [address] MCHC (RBC) [Mass/Vol] 33.3 g/dL Normal 32-36 [facility] Comment on above: Performed By: #### L 100.0100, L500.4050 #### [facility] [address] [place], [address] MCV (RBC) [Entitic vol] 110.6 fL High 81-99 [facility] Comment on above: Performed By: #### L 100.0100, L500.4050 #### [facility] [address] [place], [address] Monocytes/100 WBC (Bld) 14.6 % High 0-10 [facility] Comment on above: Performed By: #### L 100.0100, L500.4050 #### [facility] [address] [place], [address] Neutrophils/100 WBC (Bld) 73.5 % High 47-70 [facility] Comment on above: Performed By: #### L 100.0100, L500.4050 #### [facility] [address] [place], [address] Nucleated RBC (Bld) [#/Vol] 0 10*3/uL Normal 0-5 [facility] Comment on above: Performed By: #### L 100.0100, L500.4050 #### [facility] [address] [place], [address] Platelet mean volume (Bld) [Entitic vol] 10.4 fL Normal 6.2-12.0 [facility] Comment on above: Performed By: #### L 100.0100, L500.4050 #### [facility] [address] [place], [address] Platelets (Bld) [#/Vol] 176 10*3/uL Normal 150-450 [facility] Comment on above: Performed By: #### L 100.0100, L500.4050 #### [facility] [address] [place], [address] RBC (Bld) [#/Vol] 2.55 10*6/uL Low 4.2-5.4 [facility] Comment on above: Performed By: #### L 100.0100, L500.4050 #### [facility] [address] [place], [address] RDW SD 62.7 fl High 35.1-43.9 [facility] Comment on above: Performed By: #### L 100.0100, L500.4050 #### [facility] [address] [place], [address] WBC (Bld) [#/Vol] 6.8 10*3/uL Normal 4.4-11.0 [facility] Comment on above: Performed By: #### L 100.0100, L500.4050 #### [facility] [address] [place], [address] HH, Hemoglobin AND Hematocri ton 10-18-2024 Hematocrit (Bld) [Volume fraction] 28.2 % Low 37-47 [facility] Comment on above: Performed By: #### L 100.0100, L500.4050 #### [facility] [address] [place], [address] Hemoglobin (Bld) [Mass/Vol] 9.5 g/dL Low 12.0-15.0 [facility] Comment on above: Performed By: #### L 100.0100, L500.4050 #### [facility] [address] [place], [address] Ankle min 3 Viewson 10-18-19 25 Ankle min 3 Views [facility] Imaging [facility] [address] [place] [address] Ankle min 3 Views MR#: [id number] Acct: [id number] Name: BERNICE HASSAN Rep #: [id number] : 1945 F 79 From: Smith Montes MD PCP: Dr. Dago Emery MD Status: ADM EDDIE Study: Ankle min 3 Views Date of Exam: 10/17/24 Exam# [id number] Ordering Dr: Nela Wallace PROCEDURE: LEFT ANKLE MIN 3 VIEWS 10/17/2024 [...] extension appreciated. Congruent ankle mortise. Reading Location: [id number] CC: ADRYAN Holland; Dr. Dago Emery MD Loss Prevention Consultant: Signed Normal [facility] Basic Metabolic Profile (BMP )on 10-17-2024 BUN/CRE 20.7 RATIO High 10-20 [facility] Comment on above: Performed By: #### L 100.0100, L500.4050 #### [facility] [address] [place], [address] Calcium [Mass/Vol] 8.6 mg/dL Normal 7.6-11.0 [facility] Comment on above: Performed By: #### L 100.0100, L500.4050 #### [facility] [address] [place], [address] Chloride [Moles/Vol] 103 mmol/L Normal 98-108 [facility] Comment on above: Performed By: #### L 100.0100, L500.4050 #### [facility] [address] [place], [address] CO2 [Moles/Vol] 20.7 mmol/L Low 21.0-32.0 [facility] Comment on above: Performed By: #### L 100.0100, L500.4050 #### [facility] [address] [place], [address] Creatinine [Mass/Vol] 0.68 mg/dL Low 0.70-1.20 [facility] Comment on above: Performed By: #### L 100.0100, L500.4050 #### [facility] [address] [place], [address] ECRCL 59.38 ml/min Normal 50-250 [facility] Comment on above: Performed By: #### L 100.0100, L500.4050 #### [facility] [address] [place], [address] GAP 12 Normal 5-15 [facility] Comment on above: Performed By: #### L 100.0100, L500.4050 #### [facility] [address] [place], [address] GFR/1.73 sq M.predicted among non-blacks MDRD (S/P/Bld) [Vol rate/Area] 87 mL/min/{1.73_m2} Normal >60 [facility] Comment on above: Result Comment: mL/m in/1.73m2 CKD-EPI Creatinine Equation (2020) Performed By: #### L 100.0100, L500.4050 #### [facility] [address] [place], [address] Glucose [Mass/Vol] 135 mg/dL High 70-99 [facility] Comment on above: Performed By: #### L 100.0100, L500.4050 #### [facility] [address] [place], [address] Potassium [Moles/Vol] 3.9 mmol/L Normal 3.3-5.1 [facility] Comment on above: Performed By: #### L 100.0100, L500.4050 #### [facility] [address] [place], [address] Sodium [Moles/Vol] 136 mmol/L Normal 133-145 [facility] Comment on above: Performed By: #### L 100.0100, L500.4050 #### [facility] [address] [place], [address] Urea nitrogen [Mass/Vol] 14 mg/dL Normal 4-19 [facility] Comment on above: Performed By: #### L 100.0100, L500.4050 #### [facility] [address] [place], [address] CBC-Complete Blood Cnt No Di ffon 10-17-2024 Erythrocyte distribution width (RBC) [Ratio] 15.9 % High 11.6-14.6 [facility] Comment on above: Performed By: #### L 100.0100, L500.4050 #### [facility] [address] [place], [address] Hematocrit (Bld) [Volume fraction] 30.5 % Low 37-47 [facility] Comment on above: Performed By: #### L 100.0100, L500.4050 #### [facility] [address] [place], [address] Hemoglobin (Bld) [Mass/Vol] 10.2 g/dL Low 12.0-15.0 [facility] Comment on above: Performed By: #### L 100.0100, L500.4050 #### [facility] [address] [place], [address] MCH (RBC) [Entitic mass] 37.2 pg High 27.0-32.0 [facility] Comment on above: Performed By: #### L 100.0100, L500.4050 #### [facility] [address] [place], [address] MCHC (RBC) [Mass/Vol] 33.4 g/dL Normal 32-36 [facility] Comment on above: Performed By: #### L 100.0100, L500.4050 #### [facility] [address] [place], [address] MCV (RBC) [Entitic vol] 111.3 fL High 81-99 [facility] Comment on above: Performed By: #### L 100.0100, L500.4050 #### [facility] [address] [place], [address] Platelet mean volume (Bld) [Entitic vol] 10.6 fL Normal 6.2-12.0 [facility] Comment on above: Performed By: #### L 100.0100, L500.4050 #### [facility] [address] [place], [address] Platelets (Bld) [#/Vol] 176 10*3/uL Normal 150-450 [facility] Comment on above: Performed By: #### L 100.0100, L500.4050 #### [facility] [address] [place], [address] RBC (Bld) [#/Vol] 2.74 10*6/uL Low 4.2-5.4 [facility] Comment on above: Performed By: #### L 100.0100, L500.4050 #### [facility] [address] [place], [address] RDW SD 65.1 fl High 35.1-43.9 [facility] Comment on above: Performed By: #### L 100.0100, L500.4050 #### [facility] [address] [place], [address] WBC (Bld) [#/Vol] 7.1 10*3/uL Normal 4.4-11.0 [facility] Comment on above: Performed By: #### L 100.0100, L500.4050 #### [facility] [address] [place], [place], [address] Extremity Lower without Cont raon 10-17-2024 Extremity Lower without Contra [facility] Imaging Services [address] [place] [address] Extremity Lower without Contra MR#: [id number] Acct: [id number] Name: BERNICE HASSAN Rep #: [id number] : 1945 F 79 From: Neftaly Osman MD PCP: Dr. Dago Emery MD Status: ADM EDDIE Study: Extremity Lower without Contra Date of Exam: 0 10/17/24 Exam# [id number] Ordering Dr: Nela Wallace PROCEDURE: EXTREMITY LOWER WITHOUT CONTRA 10/17/2024 REASON [...] fibular fracture associated. No dislocation. Reading Location: [place] [address] CC: ADRYAN Holland; Dr. Dago Emery MD Loss Prevention Consultant: Signed Normal [facility] Bedside Glucoseon 10-16-2024 FINGERSTICK GLU 113 mg/dL High 74-106 [facility] Comment on above: Result Comment: TRACEY GEMENT OF PATIENT CARE PER NURSING PROTOCOL Performed By: #### L 501.5200, L501.9520 #### [facility] [address] [place], [address] Consultation - [place] 10-16-2024 Consultation - Hospitalist [facility] Medical Records Department [address] [place] [address] Consultation - Hospitalist 10/16/241953 MR#: [id number] Acct: [id number] Name: BERNICE HASSAN Rep #: [id number] : 1945 79 From: Saulo Bullock DO PCP: Dr. Dago Emery MD Status:[place]M [place] [facility] [place] Assessment Plan Assessment/Plan (1) Status post total left knee replacement: PLAN: Plan Patient is an 79-year-old female who presented [facility] on 10/16/2024 for planned left total [...] Consultation: Postoperative medical management HPI Narrative: BERNICE HASSAN, is a 79 F who presented to [facility] on 10/16/2024 for planned left knee [...] Denied any other pain or discomfort currently. [facility] Medical History Cardiology follow-up encounter Wears glasses [...] Surgical History (more content not included)... Normal [facility] Knee 1 or 2 Viewson 10-17-19 Knee 1 or 2 Views [facility] Imaging Services [address] [place] [address] Knee 1 or 2 Views MR#: [id number] Acct: [id number] Name: BERNICE HASSAN Rep #: [id number] : 1945 F 79 From: Smith Montes MD PCP: Dr. Dago Emery MD Status: ADM IN Study: Knee 1 or 2 Views Date of Exam: 10/16/24 Exam# [id number] Ordering Dr: Geo Rodriguez MD PROCEDURE: LEFT [...] hardware and expected postop changes. Reading Location: UYE-NARINDG-AS CC: Dr. Geo Rodriguez MD; Dr. Dago Emery MD Loss Prevention Consultant: Signed Normal [facility] Knee 1 or 2 Views [facility] [address] [facility] [place] [address] Knee 1 or 2 Views MR#: [id number] Acct: [id number] Name: BERNICE HASSAN Rep #: [id number] : 1945 F 79 From: Raciel mcgee MD PCP: Dr. Dago Emery MD Status: ADM IN Study: Knee 1 or 2 Views Date of Exam: 10/16/24 Exam# [id number] Ordering Dr: Geo Rodriguez MD PROCEDURE: KNEE [...] intramedullary nailing of the tibia. Reading Location: [id number] CC: Dr. Geo Rodriguez MD; Dr. Dago Emery MD Loss Prevention Consultant: Signed [facility] MR/POSTOP.[facility] 10-16-2024 MR/POSTOP.[facility] Medical Records Department [address] [place] [address] Anesthesia Postop Eval I 10/16/24 1849 MR#: [id number] Acct: [id number] Name: BERNICE HASSAN Rep #: [id number] : 1945 79 From: Ki Cabrera MD PCP: Dr. Dago Emery MD Status:ADM IN Y Race: C [id number] Anesthesia: Postop Eval I Current Vital Signs [...] MD Cosigner Signature: Date CC: Signed Normal [facility] MR/XIRNBQYY7um 10-16-2024 MR/POSTOPAN2 [facility] Medical Records Department [address] [place] [address] Anesthesia Postop Eval II 10/16/241849 MR#: [id number] Acct: [id number] Name: HASSANBERNICE K Rep #: [id number] : 1945 79 From: Ki Cabrera MD PCP: Dr. Dago Emery MD Status:ADM IN Y Race: C Location: [address] Anesthesia Postop Eval I Sum Postop Eval [...] Ki Germain Signature: Date CC: Signed Normal [facility] Operative Reporton Operative Report [facility] Medical Records Department [address] [place] [address] Operative Report 10/16/24 1755 MR#: [id number] Acct: [id number] Name: BERNICE HASSAN Rep #: [id number] : 1945 79 From: Geo Rodriguez MD PCP: Dr. Dago Emery MD Status:DIS IN [id number] Operative Report (Standard) Operative Information Date of Procedure: 10/16/24 Pre-Operative Diagnosis: Posttraumatic osteoarthritis left knee Post-Operative Diagnosis: Posttraumatic osteoarthritis left knee Surgery/Procedure Performed: Robotic assisted left total knee replacement Removal of left tibial nail. Removal of 4 interlocking screws. diving fisher: Yes Senior Architectural Designer: Nela Wallace Tasks completed by apartment community assistant manager: Other (See body of operative report) Additional assistant chief engineer?: No Type of Anesthesia: Spinal RN Documented Start/Stop Times: Operation Date: 10/16/24 12:30 Case Time Into Pre-Op 10/16/24 10:26 Out of Pre-Op 10/16/24 15:08 Anesthesia Start 10/16/24 15:12 Into Room 10/16/24 15:12 Procedure Start 10/16/24 15:46 Procedure End 10/16/24 18:31 Anesthesia End 10/16/24 18:33 Out of Room 10/16/24 18:33 Into Recovery 10/16/24 18:35 Out of Recovery 10/16/24 19:51 Procedure Start Time: 15:46 Procedure Stop Time: 18:31 Select all DRAINS/GRAFTS/IMPLANTS that apply: None Special Medications: Ancef Estimated Blood Loss: 200 mL Fluids Replaced: 1200 mL crystalloid Specimen collected: No Description of surgery: Implants used: 1. [place] size 4 triathlon total stabilized distal femoral component with 15 x 50 mm cemented stem 2. [place] size 4 press-fit universal tibial baseplate with 15 x 50 mm cemented stem 3. [place] X3 11 mm TS polyethylene 4. [place] X3 35 mm asymmetric patella Brief history operative indications: 79-year-old F with history of left tibial abiola and subsequent posttraumatic knee osteoarthritis with radiographic findings with loss of joint space, osteophyte formation and subchondral sclerosis. Failed conservative measures as mentioned in the H P. Discussion of total knee arthroplasty as well as risk and benefits were discussed the patient including but not limited to blood loss, DVTs, PEs, neurovascular damage, general risk of anesthesia including loss of life, and stiffness or instability were discussed with patient. Patient demonstrated understanding and was able to sign informed consent. Procedure: On the date of procedure patient's left lower extremity was marked in the preoperative area. The patient was then taken back to the operating room where the patient was placed on the table in the supine position. All bony prominences were identified a well-padded. Anesthesia assumed control of the C-spine and airway and remained controlled throughout the remainder of the procedure. A tourniquet was placed on the left upper thigh and the leg was prepped in a sterile fashion. The surgeon then scrubbed at this time .Upon reentering the room left lower extremity was draped in a standard orthopedic fashion. A timeout was then called and everyone agreed upon the side, the site, the procedure to be performed, patient's identity and antibiotics given. Esmarch bandage was used to exsanguinate the extremity and the tourniquet was placed up to 250 mmHg with the knee in flexion. At this point the fluoroscopy machine was brought into the operative field fluoroscopy was used to localize the anterior to posterior distal interlocking screw. A skin incision was made the screw was palpated and using fluoroscopy we were able to engage the screw and remove it. We then directed our attention to the distal medial to lateral screw. A separate incision was made. Fluoroscopy was used to localize the screw and guide the placement of the incision. Once the screw was engaged it was removed and backed out. We then directed our attention proximally where we located one of the proximal medial to lateral screws with fluoroscopy. This helped localize our incision. A separate incision was made screw was palpated the screw head was engaged and screw was removed. A midline skin incision was made and sharp dissection was taken down through skin subcutaneous tissue and fat. The standard medial parapatellar incision was made and the patella was subluxed laterally. An Appropriate deep MCL release was done and the fat pad was resected. Our attention was then directed to the patella. The patella was everted and a flat resection was made. At this point the knee was flexed up and based on the area of the most proximal screw we extended the incision distally in order to go through the larger incision. We localized the screw. We then directed our attention to the anterior portion of the tibia the tibia could be minimally visualized. Some bone was removed from the proximal tibia. We then placed the extraction abiola into the tib (more content not included)... Normal [facility] MRSA/SAID NASAL SCREENon MRSA+SAID SCRN Negative Normal [facility] Comment on above: Performed By: #### M 100.651 ####[facility] [address] [place], [address] Absolute lymphocyte countOrd ered By: Carolyn Ruvalcaba on 10-11-2024 Lymphocytes Auto (Unsp spec) [#/Vol] 1.13 10*3/uL 0.83-4.51 [facility] Absolute neutrophil countOrd ered By: Carolyn Ruvalcaba on 10-11-2024 Neutrophils (Bld) [#/Vol] 2.1 10*3/uL 2.0-7.7 [facility] Anion gap in Serum or Plasma Ordered By: Carolyn Ruvalcaba on 10-11-2024 Anion gap [Moles/Vol] 13 mmol/L 5-15 [facility] Automated lymphocyte count a s percentage of total leukocytesOrdered By: Carolyn Ruvalcaba on 10-11-2024 Lymphocytes/100 WBC Auto (Unsp spec) 30.5 % 19-41 [facility] BUN/creatinine ratioOrdered By: Carolyn Ruvalcaba on 10-11-2024 Urea nitrogen/Creatinine [Mass ratio] 14.2 mg/mg 10-20 [facility] Basophil percentageOrdered B y: Carolyn Ruvalcaba on 10-11-2024 Basophils/100 WBC (Bld) 0.3 % 0-1 [facility] Bilirubin, totalOrdered By: Carolyn Ruvalcaba on 10-11-2024 Bilirubin [Mass/Vol] 0.40 mg/dL 0.00-1.30 [facility] Blood manual differential co mment interpretation (narrative result)Ordered By: Carolyn Ruvalcaba on 10-11-2024 Manual differential comment Jack (Bld) [Interp] SCANNED [facility] Blood polychromasia detectio n by light microscopyOrdered By: Carolyn Ruvalcaba on 10-11-2024 Polychromasia LM Ql (Bld) 1+ [facility] CBC W/Diff, Automatedon 09-20 Anisocytosis Ql (Bld) 1+ Normal [facility] Comment on above: Performed By: #### L 501.5200, L501.9520 #### [facility] [address] [place], [address] POLYCHROMASIA 1+ Normal [facility] Comment on above: Performed By: #### L 501.5200, L501.9520 #### [facility] [address] [place], [address] PLT EST ADEQUATE Normal ADEQ [facility] Comment on above: Performed By: #### L 501.5200, L501.9520 #### [facility] [address] [place], [address] SMEAR COMMENT SCANNED Normal [facility] Comment on above: Performed By: #### L 501.5200, L501.9520 #### [facility] [address] [place], [address] Carbon dioxide, total [Moles /volume] in Central venous bloodOrdered By: Carolyn Ruvalcaba on 10-11-2024 CO2 [Moles/Vol] 21.4 mmol/L 21.0-32.0 [facility] Chloride assayOrdered By: Ke Ruvalcaba on 10-11-2024 Chloride [Moles/Vol] 102 mmol/L 98-108 [facility] Comprehensive Metabolic Prof ilon 10-11-2024 Albumin [Mass/Vol] 4.0 g/dL Normal 3.4-4.8 [facility] Comment on above: Order Comment: CC: C MP CBCD TO DR RODRIGUEZ Performed By: #### L 501.5200, L501.9520 #### [facility] [address] [place], [address] Albumin/Globulin [Mass ratio] 1.4 {ratio} Normal 0.9-2.4 [facility] Comment on above: Order Comment: CC: C MP CBCD TO DR RODRIGUEZ Performed By: #### L 501.5200, L501.9520 #### [facility] [address] [place], [address] ALK PHOS 82 U/L Normal 35-104 [facility] Comment on above: Order Comment: CC: C MP CBCD TO DR RODRIGUEZ Performed By: #### L 501.5200, L501.9520 #### [facility] [address] [place], [address] ALT [Catalytic activity/Vol] 14 U/L Normal <=34 [facility] Comment on above: Order Comment: CC: C MP CBCD TO DR RODRIGUEZ Performed By: #### L 501.5200, L501.9520 #### [facility] [address] [place], [address] AST [Catalytic activity/Vol] 22 U/L Normal <=31 [facility] Comment on above: Order Comment: CC: C MP CBCD TO DR RODRIGUEZ Performed By: #### L 501.5200, L501.9520 #### [facility] [address] [place], [address] Bilirubin [Mass/Vol] 0.40 mg/dL Normal 0.00-1.30 [facility] Comment on above: Order Comment: CC: C MP CBCD TO DR RODRIGUEZ Performed By: #### L 501.5200, L501.9520 #### [facility] [address] [place], [address] BUN/CRE 14.2 RATIO Normal 10-20 [facility] Comment on above: Order Comment: CC: C MP CBCD TO DR RODRIGUEZ Performed By: #### L 501.5200, L501.9520 #### [facility] [address] [place], [address] Calcium [Mass/Vol] 9.3 mg/dL Normal 7.6-11.0 [facility] Comment on above: Order Comment: CC: C MP CBCD TO DR RODRIGUEZ Performed By: #### L 501.5200, L501.9520 #### [facility] [address] [place], [address] Chloride [Moles/Vol] 102 mmol/L Normal 98-108 [facility] Comment on above: Order Comment: CC: C MP CBCD TO DR RODRIGUEZ Performed By: #### L 501.5200, L501.9520 #### [facility] [address] [place], [address] CO2 [Moles/Vol] 21.4 mmol/L Normal 21.0-32.0 [facility] Comment on above: Order Comment: CC: C MP CBCD TO DR RODRIGUEZ Performed By: #### L 501.5200, L501.9520 #### [facility] [address] [place], [address] Creatinine [Mass/Vol] 1.08 mg/dL Normal 0.70-1.20 [facility] Comment on above: Order Comment: CC: C MP CBCD TO DR RODRIGUEZ Performed By: #### L 501.5200, L501.9520 #### [facility] [address] [place], [address] ECRCL 44.99 ml/min Low 50-250 [facility] Comment on above: Order Comment: CC: C MP CBCD TO DR RODRIGUEZ Performed By: #### L 501.5200, L501.9520 #### [facility] [address] [place], [address] GAP 13 Normal 5-15 [facility] Comment on above: Order Comment: CC: C MP CBCD TO DR RODRIGUEZ Performed By: #### L 501.5200, L501.9520 #### [facility] [address] [place], [address] GFR/1.73 sq M.predicted among non-blacks MDRD (S/P/Bld) [Vol rate/Area] 52 mL/min/{1.73_m2} Low >60 [facility] Comment on above: Order Comment: CC: C MP CBCD TO DR RODRIGUEZ Result Comment: mL/m in/1.73m2 CKD-EPI Creatinine Equation (2020) Performed By: #### L 501.5200, L501.9520 #### [facility] [address] [place], [address] Globulin (S) [Mass/Vol] 2.9 g/dL Normal 2.2-4.2 [facility] Comment on above: Order Comment: CC: C MP CBCD TO DR RODRIGUEZ Performed By: #### L 501.5200, L501.9520 #### [facility] [address] [place], [address] Glucose [Mass/Vol] 129 mg/dL High 70-99 [facility] Comment on above: Order Comment: CC: C MP CBCD TO DR RODRIGUEZ Performed By: #### L 501.5200, L501.9520 #### [facility] [address] [place], [address] Potassium [Moles/Vol] 4.1 mmol/L Normal 3.3-5.1 [facility] Comment on above: Order Comment: CC: C MP CBCD TO DR RODRIGUEZ Performed By: #### L 501.5200, L501.9520 #### [facility] [address] [place], [address] Sodium [Moles/Vol] 136 mmol/L Normal 133-145 [facility] Comment on above: Order Comment: CC: C MP CBCD TO DR RODRIGUEZ Performed By: #### L 501.5200, L501.9520 #### [facility] [address] [place], [address] T PROT 6.9 g/dL Normal 5.9-8.4 [facility] Comment on above: Order Comment: CC: C MP CBCD TO DR RODRIGUEZ Performed By: #### L 501.5200, L501.9520 #### [facility] [address] [place], [address] Urea nitrogen [Mass/Vol] 15 mg/dL Normal 4-19 [facility] Comment on above: Order Comment: CC: C MP CBCD TO DR RODRIGUEZ Performed By: #### L 501.5200, L501.9520 #### [facility] [address] [place], [address] Eosinophil percentageOrdered By: Carolyn Ruvalcaba on 10-11-2024 Eosinophils/100 WBC (Bld) 1.1 % 0-5 [facility] Erythrocyte distribution wid th ratioOrdered By: Carolyn Ruvalcaba on 10-11-2024 Erythrocyte distribution width (RBC) [Ratio] 16.2 % High 11.6-14.6 [facility] Erythrocyte distribution wid th standard deviationOrdered By: Carolyn Ruvalcaba on 10-11-2024 Erythrocyte distribution width (RBC) [Ratio] 65.8 fl High 35.1-43.9 [facility] Glomerular filtration rate ( GFR) estimation/1.73 sq m using serum, plasma, or whole bOrdered By: Carolyn Ruvalcaba on 10-11-2024 GFR/1.73 sq M.predicted among non-blacks MDRD (S/P/Bld) [Vol rate/Area] 52 mL/min/{1.73_m2} Low >60 [facility] Comment on above: mL/min/1.73m2 CKD-EP I Creatinine Equation (2020) Hematocrit Auto (Bld) [Volum e fraction]Ordered By: Carolyn Ruvalcaba on 10-11-2024 Hematocrit (Bld) [Volume fraction] 36.1 % Low 37-47 [facility] Hemoglobin measurementOrdere d By: Carolyn Ruvalcaba on 10-11-2024 Hemoglobin (Bld) [Mass/Vol] 12.1 g/dL 12.0-15.0 [facility] Immature granulocytes/100 WB C Auto (Bld)Ordered By: Carolyn Ruvalcaba on 10-11-2024 Immature granulocytes/100 WBC (Bld) 0.500 % 0.0-0.9 [facility] Comment on above: IG% - Immature Granu locytes (promyelocytes, myelocytes and metamyelocytes) > 1% indicates that a LEFT SHIFT is Present. Laboratory - Chemistry and C hemistry - challengeOrdered By: Carolyn Ruvalcaba on 10-11-2024 AST [Catalytic activity/Vol] 22 U/L <32 [facility] - Hematology and Cell countsOrdered By: Carolyn Ruvalcaba on 10-11-2024 Anisocytosis Ql (Bld) 1+ [facility] MCV (mean corpuscular volume ) determinationOrdered By: Carolyn Ruvalcaba on 10-11-2024 MCV (RBC) [Entitic vol] 110.7 fL High 81-99 [facility] MRSA screenOrdered By: Az Rodriguez on 10-11-2024 MRSA DNA JANY+probe Ql (Unsp spec) [facility] Mean corpuscular hemoglobin (MCH) determinationOrdered By: Carolyn Ruvalcaba on 10-11-2024 MCH (RBC) [Entitic mass] 37.1 pg High 27.0-32.0 [facility] Mean corpuscular hemoglobin concentration (MCHC) determinationOrdered By: Carolyn Ruvalcaba on 10-11-2024 MCHC (RBC) [Mass/Vol] 33.5 g/dL 32-36 [facility] Mean platelet volume determi nationOrdered By: Carolyn Ruvalcaba on 10-11-2024 Platelet mean volume (Bld) [Entitic vol] 10.3 fL 6.2-12.0 [facility] Monocyte percentageOrdered B y: Carolyn Ruvalcaba on 10-11-2024 Monocytes/100 WBC (Bld) 10.3 % High 0-10 [facility] Neutrophil percentageOrdered By: Carolyn Ruvalcaba on 10-11-2024 Neutrophils/100 WBC (Bld) 57.3 % 47-70 [facility] Nucleated red blood cell per centageOrdered By: Carolyn Ruvalcaba on 10-11-2024 Nucleated RBC/100 WBC (Bld) [Ratio] 0 % 0-5 [facility] Oncology Visit Reporton 09-20 Oncology Visit Report [facility] [address] [place] [address] OFFICE VISIT Date of Service: 10/11/24 1453 MR#: [id number] Acct: [id number] Name: BERNICE HASSAN Rep #: [id number] : 1945 From: Carolyn Ruvalcaba LINING LAYER LINING LAYER -C Age/Sex: 79/F Location: [facility] Status: Signed HPI Subjective Date of [...] episodes of overt bleeding, + bruises easily. [facility] Medical History (Updated 10/04/24 @ 13:55 by [...] arthritis Social History [facility] members[facility] Smoking Status: Never smoker second hand exposure: No alcohol intake: never substance use type: does not use justice/sikh: Adventist seatbelt use: always do you feel safe [...] and palat (more content not included)... Normal [facility] Platelet countOrdered By: Ke Ruvalcaba on 10-11-2024 Platelets (Bld) [#/Vol] 244 10*3/uL 150-450 [facility] Platelet estimateOrdered By: Carolyn Ruvalcaba on 10-11-2024 Platelets LM Ql (Bld) ADEQUATE ADEQ [facility] Potassium measurement (mass/ volume)Ordered By: Carolyn Ruvalcaba on 10-11-2024 Potassium (Unsp spec) [Mass/Vol] 4.1 mmol/L 3.3-5.1 [facility] RBC Auto (Bld) [#/Vol]Ordere d By: Carolyn Ruvalcaba on 10-11-2024 RBC (Bld) [#/Vol] 3.26 10*6/uL Low 4.2-5.4 [facility] Serum creatinine measurement (mass/volume)Ordered By: Carolyn Ruvalcaba on 10-11-2024 Creatinine [Mass/Vol] 1.08 mg/dL 0.70-1.20 [facility] Serum globulin measurementOr dered By: Carolyn Ruvalcaba on 10-11-2024 Globulin (S) [Mass/Vol] 2.9 g/dL 2.2-4.2 [facility] Serum glucose measurement (m ass/volume)Ordered By: Carolyn Ruvalcaba on 10-11-2024 Glucose [Mass/Vol] 129 mg/dL High 70-99 [facility] Serum or plasma alanine bey otransferase (ALT) measurementOrdered By: Carolyn Ruvalcaba on 10-11-2024 ALT [Catalytic activity/Vol] 14 U/L <35 [facility] Serum or plasma albumin niels urement (mass/volume)Ordered By: Carolyn Ruvalcaba on 10-11-2024 Albumin [Mass/Vol] 4.0 g/dL 3.4-4.8 [facility] Serum or plasma albumin/glob ulin mass ratioOrdered By: Carolyn Ruvalcaba on 10-11-2024 Albumin/Globulin [Mass ratio] 1.4 {ratio} 0.9-2.4 [facility] Serum or plasma alkaline victor hugo sphatase measurementOrdered By: Carolyn Ruvalcaba on 10-11-2024 ALP [Catalytic activity/Vol] 82 U/L 35-104 [facility] Serum or plasma calcium niels urement (mass/volume)Ordered By: Carolyn Ruvalcaba on 10-11-2024 Calcium [Mass/Vol] 9.3 mg/dL 7.6-11.0 [facility] Serum or plasma urea nitroge n measurement (mass/volume)Ordered By: Carolyn Ruvalcaba on 10-11-2024 Urea nitrogen [Mass/Vol] 15 mg/dL 4-19 [facility] Sodium levelOrdered By: Carolyn Ruvalcaba on 10-11-2024 Sodium [Moles/Vol] 136 mmol/L 133-145 [facility] Total proteinOrdered By: Nayan Ruvalcaba on 10-11-2024 Protein [Mass/Vol] 6.9 g/dL 5.9-8.4 [facility] White blood cell (WBC) count Ordered By: Carolyn Ruvalcaba on 10-11-2024 WBC (Bld) [#/Vol] 3.7 10*3/uL Low 4.4-11.0 [facility] MR/PAT.MANOJon 10-05-2024 MR/PAT.MANOJ [facility] Medical Records Department [address] [place] [address] PAT - Anesthesia 10/05/24 1553 MR#: [id number] Acct: [id number] Name: BERNICE HASSAN Rep #: [id number] : 1945 79 From: Avery Rod MD PCP: Dr. Dago Emery MD Status:PRE [facility] Y Race: C Location: [facility] Pre-Assessment Diagnosis/Proposed Procedure Planned Operative Procedure(s): ROBOTIC ASSISTED LEFT TOTAL KNEE ARTHROPLASTY Anesthesia History Anesthesia History - box car bracer: Anesthesia History - box car bracer Hx Hospitalization No 10/04/24 13:47 Any Problems [...] take am of surgery PONV PONV - box car bracer: PONV - box car bracer Female Yes 10/04/24 13:47 HX of Motion [...] 09/20/24 14:30 Respiratory Assessment Respiratory Assessment - box car bracer: Respiratory Tract Infection Hx - box car bracer Hx Respiratory Tract Infection No 10/04/24 13:47 STOP Sleep Apnea STOP Sleep Apnea - box car bracer: STOP Sleep Apnea - box car bracer Hx Hypertension Yes: CONTROLLED WITH MED 10/04/24 [...] Tobacco Use History Tobacco Use History - box car bracer: Tobacco Use History - box car bracer Tobacco Use Smoking Status Never smoker 10/04/24 13:47 Hx Tobacco Use No 10/04/24 13:47 Years Smoking Packs Smoked per Day Smoking Cessation Date was within the last 15 years Hx Smoking Cessation Date Hx Smoking Cessation Counseling Hematologic Medial History Hematologic Hx - box car bracer: Hematologic Medical Hx - ear flap binder Hx of Blood Transfusion No 10/04/24 13:47 [...] confused, unrespo /Reproduction History /Reproductive History - box car bracer: /Reproductive Hx- box car bracer Hx Now No 10/04/24 13:47 Gestational Age (in weeks): EDC: Hx Hx Para Hx Section SAB No 10/04/24 13:47 PFSH Medical History (Updated 10/04/24 @ 13:55 by Joanie Schriber) Cardiology follow-up encounter Wears glasses Post-menopausal Depression [...] DAILY pravin (more content not included)... Normal [facility] Cardiology Visit Reporton Cardiology Visit Report [facility] [address] [place] [address]. [address] [place] [address] OFFICE VISIT Date of Service: 09/20/24 MR#: [id number] Acct: [id number] Name: BERNICE HASSAN Rep #: [id number] : 1945 Provider: Dr. 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 Accompanied by: Self Is [...] you fallen in the past year?: Yes [facility] Medical History Thyroid disease Wears glasses Post-menopausal [...] arthritis Social History household members: [facility] Smoking Status: Never smoker second hand exposure: No alcohol intake: never substance use type: does not use justice/sikh: Adventist seatbelt use: always do you feel safe at home: Yes ROS Const Const: Positive for fatigue and weakness ENT ENT: Negative for dizziness or balance problems Cardio Chest Pain: No Palpitations: No Edema: Right Muscle ach (more content not included)... Normal [facility] Electrocardiogram reportOrde red By: Omero Armas on 08-03-2024 EKG study [facility] Cardiovascular Services [address] [place] [address] 12 Lead EKG 08/01/24 1400 MR#: [id number] Acct: [id number] Name: BERNICE HASSAN Rep #:[id number] : 1945 79 From: Omero betancur MD Attending Dr: Dr. Dago Emery MD Status: REG CLI Ordering Dr: Dago Emery MD Date: Location: PSN Sex: F C Admitted: Test Reason : PREOP Blood Pressure : */* mmHG Vent. Rate : 50 BPM Atrial Rate : 50 BPM P-R Int : 196 ms QRS Dur : 84 ms QT Int : 440 ms P-R-T Axes : 67 73 47 degrees QTcB Int : [address] abnormality, possible digitalis effect Abnormal ECG Confirmed by Omero Armas ([id number]), avid editor BONY SANCHEZ ([id number]) on 08/03/2024 10:09:09 AM Referred By: Dago Emery Confirmed By: Omero Armas 08/03/24 1009 Date _ Omero Armas MD CC: Dr. Dago Emery MD ~ Signed [facility] Other Phone: MRSA/SAID NASAL SCREENon MRSA+SAID SCRN Reason for Exam: PRE OP MRSA MRSA Negative S. AUREUS S. aureus Negative Normal [facility] Comment on above: Performed By: #### L 100.0100, L500.4050 #### [facility] Laboratory [address] [place], [address] 12 Lead EKGon 08-01-2024 12 Lead EKG [facility] Cardiovascular Services [address] [place] [address] 12 Lead EKG 08/01/24 1400 MR#: [id number] Acct: [id number] Name: BERNICE HASSAN Rep #: [id number] : 1945 79 From: Omero Armas MD Attending Dr: Dr. Dago Emery MD Status: REG I Ordering Dr: Dago Emery MD Date: 08/01/24 Location: [facility] Sex: F C Admitted: Test [...] effect Abnormal ECG Confirmed by Omero Armas ([id number]), avid editor BONY SANCHEZ ([id number]) on 08/03/2024 10:09:09 AM Referred By: Dago Emery Confirmed By: Omero Armas 08/03/24 1009 Date Omero Armas MD CC: Dr. Dago Emery MD Signed Normal [facility] Extremity Lower without Cont raon 08-01-2024 Extremity Lower without Contra [facility] Imaging Services [address] [place] [address] Extremity Lower without Contra MR#: [id number] Acct: [id number] Name: BERNICE HASSAN Rep #: [id number] : 1945 F 79 From: Howard Crocker PCP: Dr. Dago Emery MD Status: REG CLI Study: Extremity Lower without Contra Date of Exam: 0 08/01/24 Exam# [id number] Ordering Dr: Geo Rodriguez MD PROCEDURE: EXTREMITY [...] left tibia without apparent complication. Reading Location: [place] [address] CC: Dr. Geo Rodriguez MD; Dr. Dago Emery MD Loss Prevention Consultant: Signed [facility] MR/PAT.Gabriella 08-01-2024 MR/PAT.[facility] Medical Records Department [address] [place] [address] PAT - Anesthesia 08/01/24 1627 MR#: [id number] Acct: [id number] Name: BERNICE HASSAN Rep #: [id number] : 1945 79 From: Ilya Coelho MD PCP: Dr. Dago Emery MD Status:PRE SDC Y Race: C Location: [facility] Pre-Assessment Diagnosis/Proposed Procedure Planned Operative Procedure(s): ROBOTIC ASSISTED LEFT TOTAL KNEE ARTHROPLASTY Anesthesia History Anesthesia History - box car bracer: Anesthesia History - box car bracer Hx Hospitalization No 07/31/24 11:35 Any Problems [...] take am of surgery PONV PONV - box car bracer: PONV - box car bracer Female Yes 07/31/24 11:35 HX of Motion [...] 07/10/24 13:45 Respiratory Assessment Respiratory Assessment - box car bracer: Respiratory Tract Infection Hx - box car bracer Hx Respiratory Tract Infection No 07/31/24 11:35 STOP Sleep Apnea STOP Sleep Apnea - box car bracer: STOP Sleep Apnea - box car bracer Hx Hypertension Yes: CONTROLLED WITH MED 07/31/24 [...] Tobacco Use History Tobacco Use History - box car bracer: Tobacco Use History - box car bracer Tobacco Use Smoking Status Never smoker 07/31/24 11:35 Hx Tobacco Use No 07/31/24 11:35 Years Smoking Packs Smoked per Day Smoking Cessation Date was within the last 15 years Hx Smoking Cessation Date Hx Smoking Cessation Counseling Hematologic Medial History Hematologic Hx - box car bracer: Hematologic Medical Hx - ear flap binder Hx of Blood Transfusion No 07/31/24 11:35 [...] confused, unrespo /Reproduction History /Reproductive History - box car bracer: /Reproductive Hx- box car bracer Hx Now No 07/31/24 11:35 Gestational Age (in weeks): EDC: Hx Hx Para Hx Section SAB No 07/31/24 11:35 PFSH Medical History (Updated 07/31/24 @ 11:45 by [...] bones 10/26/19 (more content not included)... Normal [facility] Activated partial thrombopla stin time (aPTT) in platelet poor plasma by coagulation aOrdered By: Dago Emery on 07-31-2024 aPTT Coag (PPP) [Time] 26.1 s 24.1-36.2 [facility] Albumin, Serumon 07-31-2024 Albumin [Mass/Vol] 3.9 g/dL Normal 3.4-4.8 [facility] Comment on above: Performed By: #### L 100.0100, L500.4050 #### [facility] [address] [place], [place], [id number] Bilirubin, totalOrdered By: Dago Emery on 07-31-2024 Bilirubin [Mass/Vol] 0.42 mg/dL 0.00-1.30 [facility] [place] Comprehensive Metabolic Prof ilon 07-31-2024 Albumin [Mass/Vol] 4.0 g/dL Normal 3.4-4.8 [facility] Comment on above: Performed By: #### L 501.5200, L501.9520 #### [facility] [address] [place], [place], [id number] Albumin/Globulin [Mass ratio] 1.6 {ratio} Normal 0.9-2.4 [facility] Comment on above: Performed By: #### L 501.5200, L501.9520 #### [facility] [address] [place], [address] ALK PHOS 92 U/L Normal 35-104 [facility] Comment on above: Performed By: #### L 501.5200, L501.9520 #### [facility] [address] [place], [address] ALT [Catalytic activity/Vol] 14 U/L Normal <=34 [facility] Comment on above: Performed By: #### L 501.5200, L501.9520 #### [facility] [address] [place], [address] AST [Catalytic activity/Vol] 22 U/L Normal <=31 [facility] Comment on above: Performed By: #### L 501.5200, L501.9520 #### [facility] [address] [place], [address] Bilirubin [Mass/Vol] 0.42 mg/dL Normal 0.00-1.30 [facility] Comment on above: Performed By: #### L 501.5200, L501.9520 #### [facility] [address] [place], [address] BUN/CRE 19.1 RATIO Normal 10-20 [facility] Comment on above: Performed By: #### L 501.5200, L501.9520 #### [facility] [address] [place], [address] Calcium [Mass/Vol] 9.5 mg/dL Normal 7.6-11.0 [facility] Comment on above: Performed By: #### L 501.5200, L501.9520 #### [facility] [address] [place], [address] Chloride [Moles/Vol] 105 mmol/L Normal 98-108 [facility] Comment on above: Performed By: #### L 501.5200, L501.9520 #### [facility] [address] [place], [address] CO2 [Moles/Vol] 23.0 mmol/L Normal 21.0-32.0 [facility] Comment on above: Performed By: #### L 501.5200, L501.9520 #### [facility] [address] [place], [address] Creatinine [Mass/Vol] 0.97 mg/dL Normal 0.70-1.20 [facility] Comment on above: Performed By: #### L 501.5200, L501.9520 #### [facility] [address] [place], [address] GAP 12 Normal 5-15 [facility] Comment on above: Performed By: #### L 501.5200, L501.9520 #### [facility] [address] [place], [address] GFR/1.73 sq M.predicted among non-blacks MDRD (S/P/Bld) [Vol rate/Area] 59 mL/min/{1.73_m2} Low >60 [facility] Comment on above: Result Comment: mL/m in/1.73m2 CKD-EPI Creatinine Equation (2020) Performed By: #### L 501.5200, L501.9520 #### [facility] [address] [place], [address] Globulin (S) [Mass/Vol] 2.4 g/dL Normal 2.2-4.2 [facility] Comment on above: Performed By: #### L 501.5200, L501.9520 #### [facility] [address] [place], [address] Glucose [Mass/Vol] 127 mg/dL High 70-99 [facility] Comment on above: Performed By: #### L 501.5200, L501.9520 #### [facility] [address] [place], [address] Potassium [Moles/Vol] 4.5 mmol/L Normal 3.3-5.1 [facility] Comment on above: Performed By: #### L 501.5200, L501.9520 #### [facility] [address] [place], [address] Sodium [Moles/Vol] 139 mmol/L Normal 133-145 [facility] Comment on above: Performed By: #### L 501.5200, L501.9520 #### [facility] [address] [place], [address] T PROT 6.4 g/dL Normal 5.9-8.4 [facility] Comment on above: Performed By: #### L 501.5200, L501.9520 #### [facility] [address] [place], [address] Urea nitrogen [Mass/Vol] 19 mg/dL Normal 4-19 [facility] Comment on above: Performed By: #### L 501.5200, L501.9520 #### [facility] [address] [place], [address] International normalized rat io (INR) calculationOrdered By: Dago Emery on 07-31-2024 INR Coag (Bld) [Relative time] 0.9 {INR} [facility] - Chemistry and C hemistry - challengeOrdered By: Dago Emery on 07-31-2024 AST [Catalytic activity/Vol] 22 U/L <32 [facility] MRSA screenOrdered By: Az Rodriguez on 07-31-2024 MRSA DNA JANY+probe Ql (Unsp spec) [facility] Magnesiumon 07-31-2024 Magnesium [Mass/Vol] 2.3 mg/dL High 1.5-2.2 [facility] Comment on above: Performed By: #### L 501.5200, L501.9520 #### [facility] [address] [place], [address] Magnesium measurement (mass/ volume)Ordered By: Jg Pandey on 07-31-2024 Magnesium (Unsp spec) [Mass/Vol] 2.3 mg/dL High 1.5-2.2 [facility] Partial Thromboplast Timeon 07-31-2024 aPTT Coag (Bld) [Time] 26.1 s Normal 24.1-36.2 [facility] Comment on above: Performed By: #### L 501.5200, L501.9520 #### [facility] [address] [place], [address] Prothrombin Time w/INRon INR Coag (PPP) [Relative time] 0.9 {INR} Normal [facility] Comment on above: Performed By: #### L 300.4310, L500.4050, L300.3900, L506.1001 ####[facility] [address] [place], [address] PT Coag (PPP) [Time] 12.6 s Normal 11.7-14.9 [facility] Comment on above: Performed By: #### L 300.4310, L500.4050, L300.3900, L506.1001 ####[facility] [address] [place], [address] Prothrombin timeOrdered By: Dago Emery on 07-31-2024 PT Coag (PPP) [Time] 12.6 s 11.7-14.9 [facility] Serum globulin measurementOr dered By: Dago Emery on 07-31-2024 Globulin (S) [Mass/Vol] 2.4 g/dL 2.2-4.2 [facility] Serum or plasma alanine bey otransferase (ALT) measurementOrdered By: Dago Emery on 07-31-2024 ALT [Catalytic activity/Vol] 14 U/L <35 [facility] Serum or plasma albumin niels urement (mass/volume)Ordered By: Dago [place] on 07-31-2024 Albumin [Mass/Vol] 4.0 g/dL 3.4-4.8 [facility] Serum or plasma albumin/glob ulin mass ratioOrdered By: Dago [place] on 07-31-2024 Albumin/Globulin [Mass ratio] 1.6 {ratio} 0.9-2.4 [facility] Serum or plasma alkaline victor hugo sphatase measurementOrdered By: Dago Barnesok on 07-31-2024 ALP [Catalytic activity/Vol] 92 U/L 35-104 [facility] TSH DL <= 0.005 mIU/L QnOrde red By: Jg Pandey on 07-31-2024 TSH Qn 1.470 uIU/mL 0.300-4.20 0 [facility] Thyroid Stim Hormone (TSH)on 07-31-2024 TSH 1.470 uIU/mL Normal 0.300-4.20 0 [facility] Comment on above: Performed By: #### L 501.5200, L595.7820 #### [facility] [address] [place], [place], [id number] Total proteinOrdered By: Dago [place] on 07-31-2024 Protein [Mass/Vol] 6.4 g/dL 5.9-8.4 [facility] Vitamin D,25 Hydroxyon 07-31 Vitamin D 25-OH 18.9 ng/mL Low 30-100 [facility] Comment on above: Result Comment: [place] min D Status Deficiency: <20 ng/mL (50nmol/L) Insufficiency: 20-30 ng/mL (50-75 nmol/L) Sufficiency: 30-100 ng/mL (75-250 nmol/L) Toxicity: >100 ng/mL (>250 nmol/L) Performed By: #### L 501.5200, L501.9520 #### [facility] [address] [place], [address] Absolute lymphocyte countOrd ered By: rAamsheree Pate on 07-10-2024 Lymphocytes Auto (Unsp spec) [#/Vol] 1.19 10*3/uL 0.83-4.51 [facility] Absolute neutrophil countOrd ered By: [facility] on 07-[facility]-2024 Neutrophils (Bld) [#/Vol] 3.7 10*3/uL 2.0-7.7 [facility] Anion gap in Serum or Plasma Ordered By: Umang Pate on 07-10-2024 Anion gap [Moles/Vol] 10 mmol/L 5- [facility] Automated lymphocyte count a s percentage of total leukocytesOrdered By: Aramsheree Pate on 07-10-2024 Lymphocytes/100 WBC Auto (Unsp spec) 22.0 % [facility] BUN/creatinine ratioOrdered By: [facility] Herlinda on 07-10-2024 Urea nitrogen/Creatinine [Mass ratio] 20.2 mg/mg High 10- [facility] Basophil percentageOrdered B y: Umang Pate on 07-10-2024 Basophils/100 WBC (Bld) 0.4 % 0- [facility] Bilirubin, totalOrdered By: Aramsheree Pate on 07-10-2024 Bilirubin [Mass/Vol] 0.40 mg/dL 0.00-1.30 [facility] CBC W/Diff, Automatedon 06-21 Absolute Lymph 1.19 X10 3/uL Normal 0.83-4.51 [facility] Comment on above: Performed By: #### L 100.0100, L500.4050 #### [facility] [address] [place], [address] Absolute Neut 3.7 X10 3/uL Normal 2.0-7.7 [facility] Comment on above: Performed By: #### L 100.0100, L500.4050 #### [facility] [address] [place], [address] Basophils/100 WBC (Bld) 0.4 % Normal 0-1 [facility] Comment on above: Performed By: #### L 100.0100, L500.4050 #### [facility] [address] [place], [address] Eosinophils/100 WBC (Bld) 1.3 % Normal 0-5 [facility] Comment on above: Performed By: #### L 100.0100, L500.4050 #### [facility] [address] [place], [address] Erythrocyte distribution width (RBC) [Ratio] 14.9 % High 11.6-14.6 [facility] Comment on above: Performed By: #### L 100.0100, L500.4050 #### [facility] [address] [place], [address] Hematocrit (Bld) [Volume fraction] 38.9 % Normal 37-47 [facility] Comment on above: Performed By: #### L 100.0100, L500.4050 #### [facility] [address] [place], [address] Hemoglobin (Bld) [Mass/Vol] 13.0 g/dL Normal 12.0-15.0 [facility] Comment on above: Performed By: #### L 100.0100, L500.4050 #### [facility] [address] [place], [address] IG% 0.400 Normal 0.0-0.9 [facility] Comment on above: Result Comment: IG% - Immature Granulocytes (promyelocytes, myelocytes and metamyelocytes) > 1% indicates that a LEFT SHIFT is Present. Performed By: #### L 100.0100, L500.4050 #### [facility] [address] [place], [address] Lymphocytes/100 WBC (Bld) 22.0 % Normal 19-41 [facility] Comment on above: Performed By: #### L 100.0100, L500.4050 #### [facility] [address] [place], [address] MCH (RBC) [Entitic mass] 36.6 pg High 27.0-32.0 [facility] Comment on above: Performed By: #### L 100.0100, L500.4050 #### [facility] [address] [place], [address] MCHC (RBC) [Mass/Vol] 33.4 g/dL Normal 32-36 [facility] Comment on above: Performed By: #### L 100.0100, L500.4050 #### [facility] [address] [place], [address] MCV (RBC) [Entitic vol] 109.6 fL High 81-99 [facility] Comment on above: Performed By: #### L 100.0100, L500.4050 #### [facility] [address] [place], [address] Monocytes/100 WBC (Bld) 8.5 % Normal 0-10 [facility] Comment on above: Performed By: #### L 100.0100, L500.4050 #### [facility] [address] [place], [address] Neutrophils/100 WBC (Bld) 67.4 % Normal 47-70 [facility] Comment on above: Performed By: #### L 100.0100, L500.4050 #### [facility] [address] [place], [address] Nucleated RBC (Bld) [#/Vol] 0 10*3/uL Normal 0-5 [facility] Comment on above: Performed By: #### L 100.0100, L500.4050 #### [facility] [address] [place], [address] Platelet mean volume (Bld) [Entitic vol] 10.9 fL Normal 6.2-12.0 [facility] Comment on above: Performed By: #### L 100.0100, L500.4050 #### [facility] [address] [place], [address] Platelets (Bld) [#/Vol] 252 10*3/uL Normal 150-450 [facility] Comment on above: Performed By: #### L 100.0100, L500.4050 #### [facility] [address] [place], [address] RBC (Bld) [#/Vol] 3.55 10*6/uL Low 4.2-5.4 [facility] Comment on above: Performed By: #### L 100.0100, L500.4050 #### [facility] [address] [place], [address] RDW SD 60.0 fl High 35.1-43.9 [facility] Comment on above: Performed By: #### L 100.0100, L500.4050 #### [facility] [address] [place], [address] WBC (Bld) [#/Vol] 5.4 10*3/uL Normal 4.4-11.0 [facility] Comment on above: Performed By: #### L 100.0100, L500.4050 #### [facility] [address] [place], [address] Carbon dioxide, total [Moles /volume] in Central venous bloodOrdered By: Umang Pate on 07-10-2024 CO2 [Moles/Vol] 23.6 mmol/L 21.0-32.0 [facility] Chloride assayOrdered By: Lara Pate on 07-10-2024 Chloride [Moles/Vol] 105 mmol/L 98-108 [facility] Comprehensive Metabolic Prof ilon 07-10-2024 Albumin [Mass/Vol] 4.0 g/dL Normal 3.4-4.8 [facility] Comment on above: Performed By: #### L 100.0100, L500.4050 #### [facility] [address] [place], [address] Albumin/Globulin [Mass ratio] 1.4 {ratio} Normal 0.9-2.4 [facility] Comment on above: Performed By: #### L 100.0100, L500.4050 #### [facility] [address] [place], [address] ALK PHOS 90 U/L Normal 35-104 [facility] Comment on above: Performed By: #### L 100.0100, L500.4050 #### [facility] [address] [place], [address] ALT [Catalytic activity/Vol] 14 U/L Normal <=34 [facility] Comment on above: Performed By: #### L 100.0100, L500.4050 #### [facility] [address] [place], [address] AST [Catalytic activity/Vol] 22 U/L Normal <=31 [facility] Comment on above: Performed By: #### L 100.0100, L500.4050 #### [facility] [address] [place], [address] Bilirubin [Mass/Vol] 0.40 mg/dL Normal 0.00-1.30 [facility] Comment on above: Performed By: #### L 100.0100, L500.4050 #### [facility] [address] [place], [address] BUN/CRE 20.2 RATIO High 10-20 [facility] Comment on above: Performed By: #### L 100.0100, L500.4050 #### [facility] [address] [place], [address] Calcium [Mass/Vol] 9.3 mg/dL Normal 7.6-11.0 [facility] Comment on above: Performed By: #### L 100.0100, L500.4050 #### [facility] [address] [place], [address] Chloride [Moles/Vol] 105 mmol/L Normal 98-108 [facility] Comment on above: Performed By: #### L 100.0100, L500.4050 #### [facility] [address] [place], [address] CO2 [Moles/Vol] 23.6 mmol/L Normal 21.0-32.0 [facility] Comment on above: Performed By: #### L 100.0100, L500.4050 #### [facility] [address] [place], [address] Creatinine [Mass/Vol] 0.97 mg/dL Normal 0.70-1.20 [facility] Comment on above: Performed By: #### L 100.0100, L500.4050 #### [facility] [address] [place], [address] ECRCL 50.94 ml/min Normal 50-250 [facility] Comment on above: Performed By: #### L 100.0100, L500.4050 #### [facility] [address] [place], [address] GAP 10 Normal 5-15 [facility] Comment on above: Performed By: #### L 100.0100, L500.4050 #### [facility] [address] [place], [address] GFR/1.73 sq M.predicted among non-blacks MDRD (S/P/Bld) [Vol rate/Area] 59 mL/min/{1.73_m2} Low >60 [facility] Comment on above: Result Comment: mL/m in/1.73m2 CKD-EPI Creatinine Equation (2020) Performed By: #### L 100.0100, L500.4050 #### [facility] [address] [place], [address] Globulin (S) [Mass/Vol] 2.9 g/dL Normal 2.2-4.2 [facility] Comment on above: Performed By: #### L 100.0100, L500.4050 #### [facility] [address] [place], [address] Glucose [Mass/Vol] 112 mg/dL High 70-99 [facility] Comment on above: Performed By: #### L 100.0100, L500.4050 #### [facility] [address] [place], [address] Potassium [Moles/Vol] 4.0 mmol/L Normal 3.3-5.1 [facility] Comment on above: Performed By: #### L 100.0100, L500.4050 #### [facility] [address] [place], [address] Sodium [Moles/Vol] 139 mmol/L Normal 133-145 [facility] Comment on above: Performed By: #### L 100.0100, L500.4050 #### [facility] [address] [place], [address] T PROT 6.9 g/dL Normal 5.9-8.4 [facility] Comment on above: Performed By: #### L 100.0100, L500.4050 #### [facility] [address] [place], [address] Urea nitrogen [Mass/Vol] 20 mg/dL High 4-19 [facility] Comment on above: Performed By: #### L 100.0100, L500.4050 #### [facility] [address] [place], [address] Eosinophil percentageOrdered By: [facility] on 07-10-2024 Eosinophils/100 WBC (Bld) 1.3 % 0-5 [facility] Erythrocyte distribution wid th ratioOrdered By: [facility] on 07-10-2024 Erythrocyte distribution width (RBC) [Ratio] 14.9 % High 11.6-14.6 [facility] Erythrocyte distribution wid th standard deviationOrdered By: [facility] on 07-10-2024 Erythrocyte distribution width (RBC) [Ratio] 60.0 fl High 35.1-43.9 [facility] Glomerular filtration rate ( GFR) estimation/1.73 sq m using serum, plasma, or whole bOrdered By: [facility] on 07-10-2024 GFR/1.73 sq M.predicted among non-blacks MDRD (S/P/Bld) [Vol rate/Area] 59 mL/min/{1.73_m2} Low >60 [facility] Comment on above: mL/min/1.73m2 CKD-EP I Creatinine Equation (2020) Hematocrit Auto (Bld) [Volum e fraction]Ordered By: [facility] Herlinda on 07-10-2024 Hematocrit (Bld) [Volume fraction] 38.9 % 37-47 [facility] Hemoglobin measurementOrdere d By: Umang Pate on 07-10-2024 Hemoglobin (Bld) [Mass/Vol] 13.0 g/dL 12.0-15.0 [facility] Immature granulocytes/100 WB C Auto (Bld)Ordered By: Umang Pate on 07-10-2024 Immature granulocytes/100 WBC (Bld) 0.400 % 0.0-0.9 [facility] Comment on above: IG% - Immature Granu locytes (promyelocytes, myelocytes and metamyelocytes) > 1% indicates that a LEFT SHIFT is Present. Laboratory - Chemistry and C hemistry - challengeOrdered By: Umang Pate on 07-10-2024 AST [Catalytic activity/Vol] 22 U/L <32 [facility] MCV (mean corpuscular volume ) determinationOrdered By: Umang Pate on 07-10-2024 MCV (RBC) [Entitic vol] 109.6 fL High 81-99 [facility] Mean corpuscular hemoglobin (MCH) determinationOrdered By: Aramsheree Pate on 07-10-2024 MCH (RBC) [Entitic mass] 36.6 pg High 27.0-32.0 [facility] Mean corpuscular hemoglobin concentration (MCHC) determinationOrdered By: [facility] Herlinda on 07-10-2024 MCHC (RBC) [Mass/Vol] 33.4 g/dL 32-36 [facility] Mean platelet volume determi nationOrdered By: [facility] Herlinda on 07-10-2024 Platelet mean volume (Bld) [Entitic vol] 10.9 fL 6.2-12.0 [facility] Monocyte percentageOrdered B y: [facility] Herlinda on 07-10-2024 Monocytes/100 WBC (Bld) 8.5 % 0-10 [facility] Neutrophil percentageOrdered By: [facility] Herlinda on 07-10-2024 Neutrophils/100 WBC (Bld) 67.4 % 47-70 [facility] Nucleated red blood cell per centageOrdered By: [facility] Herlinda on 07-10-2024 Nucleated RBC/100 WBC (Bld) [Ratio] 0 % 0-5 [facility] Oncology Visit Reporton 06-21 Oncology Visit Report [facility] [address] [place] [address] OFFICE VISIT Date of Service: 07/10/24 1322 MR#: [id number] Acct: [id number] Name: BERNICE HASSAN Rep #: [id number] : 1945 From: Carolyn Ruvalcaba NP [employer] Age/Sex: 78/F Location: [facility] [place] Status: Signed HPI Subjective Date of [...] be pursuing left knee replacement in August. [facility] Medical History Wears glasses Post-menopausal Depression Anxiety [...] arthritis Social History household members: none housing: [facility] Smoking Status: Never smoker second hand exposure: No alcohol intake: never substance use type: does not use justice/sikh: Adventist seatbelt use: always do you feel safe [...] 81 mg chewable tablet 81 mg PO BID@ 7 days #14 10/09/22 07/10/24 Rx tabs atenolol 50 mg tablet 50 mg PO DAILY@0800 30 days #30 07/10/24 Rx tabs ondansetron 4 mg disintegrating 8 mg (2 x 4 mg) PO Q8H PRN PRN 07/10/24 Rx tablet NAUSEA 30 days #90 tabs sennosides 8.6 mg-docusate sodium 2 tab PO BID@08 30 days 07/10/24 Rx 50 mg tablet [...] Bilirubin 0. (more content not included)... Normal [facility] Platelet countOrdered By: Lara Pate on 07-10-2024 Platelets (Bld) [#/Vol] 252 10*3/uL 150-450 [facility] Potassium measurement (mass/ volume)Ordered By: Umang Pate on 07-10-2024 Potassium (Unsp spec) [Mass/Vol] 4.0 mmol/L 3.3-5.1 [facility] RBC Auto (Bld) [#/Vol]Ordere d By: Umang Pate on 07-10-2024 RBC (Bld) [#/Vol] 3.55 10*6/uL Low 4.2-5.4 [facility] Serum creatinine measurement (mass/volume)Ordered By: Umang Pate on 07-10-2024 Creatinine [Mass/Vol] 0.97 mg/dL 0.70-1.20 [facility] Serum globulin measurementOr dered By: Umang Pate on 07-10-2024 Globulin (S) [Mass/Vol] 2.9 g/dL 2.2-4.2 [facility] Serum glucose measurement (m ass/volume)Ordered By: Umang Pate on 07-10-2024 Glucose [Mass/Vol] 112 mg/dL High 70-99 [facility] Serum or plasma alanine bey otransferase (ALT) measurementOrdered By: Umang Pate on 07-10-2024 ALT [Catalytic activity/Vol] 14 U/L <35 [facility] Serum or plasma albumin niels urement (mass/volume)Ordered By: Umang Pate on 07-10-2024 Albumin [Mass/Vol] 4.0 g/dL 3.4-4.8 [facility] Serum or plasma albumin/glob ulin mass ratioOrdered By: Umang Pate on 07-10-2024 Albumin/Globulin [Mass ratio] 1.4 {ratio} 0.9-2.4 [facility] Serum or plasma alkaline victor hugo sphatase measurementOrdered By: Umang Pate on 07-10-2024 ALP [Catalytic activity/Vol] 90 U/L 35-104 [facility] Serum or plasma calcium niels urement (mass/volume)Ordered By: Umang Pate on 07-10-2024 Calcium [Mass/Vol] 9.3 mg/dL 7.6-11.0 [facility] Serum or plasma urea nitroge n measurement (mass/volume)Ordered By: Umang Verajyo on 07-10-2024 Urea nitrogen [Mass/Vol] 20 mg/dL High 4-19 [facility] Sodium levelOrdered By: Aram Pate on 07-10-2024 Sodium [Moles/Vol] 139 mmol/L 133-145 [facility] Total proteinOrdered By: Seng Pate on 07-10-2024 Protein [Mass/Vol] 6.9 g/dL 5.9-8.4 [facility] White blood cell (WBC) count Ordered By: Umang Verajoy on 07-10-2024 WBC (Bld) [#/Vol] 5.4 10*3/uL 4.4-11.0 [facility] CBC W/Diff, Automatedon 12-0 Absolute Lymph 1.45 X10 3/uL Normal 0.83-4.51 [facility] Comment on above: Performed By: #### L 100.0100, L500.4050 #### [facility] [address] [place], [address] Absolute Neut 5.9 X10 3/uL Normal 2.0-7.7 [facility] Comment on above: Performed By: #### L 100.0100, L500.4050 #### [facility] [address] [place], [address] Basophils/100 WBC (Bld) 0.1 % Normal 0-1 [facility] Comment on above: Performed By: #### L 100.0100, L500.4050 #### [facility] [address] [place], [address] Eosinophils/100 WBC (Bld) 0.9 % Normal 0-5 [facility] Comment on above: Performed By: #### L 100.0100, L500.4050 #### [facility] [address] [place], [address] Erythrocyte distribution width (RBC) [Ratio] 14.6 % Normal 11.6-14.6 [facility] Comment on above: Performed By: #### L 100.0100, L500.4050 #### [facility] [address] [place], [address] Hematocrit (Bld) [Volume fraction] 40.3 % Normal 37-47 [facility] Comment on above: Performed By: #### L 100.0100, L500.4050 #### [facility] [address] [place], [address] Hemoglobin (Bld) [Mass/Vol] 13.3 g/dL Normal 12.0-15.0 [facility] Comment on above: Performed By: #### L 100.0100, L500.4050 #### [facility] [address] [place], [address] IG% 0.500 Normal 0.0-0.9 [facility] Comment on above: Result Comment: IG% - Immature Granulocytes (promyelocytes, myelocytes and metamyelocytes) > 1% indicates that a LEFT SHIFT is Present. Performed By: #### L 100.0100, L500.4050 #### [facility] [address] [place], [address] Lymphocytes/100 WBC (Bld) 17.7 % Low 19-41 [facility] Comment on above: Performed By: #### L 100.0100, L500.4050 #### [facility] [address] [place], [address] MCH (RBC) [Entitic mass] 36.2 pg High 27.0-32.0 [facility] Comment on above: Performed By: #### L 100.0100, L500.4050 #### [facility] [address] [place], [address] MCHC (RBC) [Mass/Vol] 33.0 g/dL Normal 32-36 [facility] Comment on above: Performed By: #### L 100.0100, L500.4050 #### [facility] [address] [place], [address] MCV (RBC) [Entitic vol] 109.8 fL High 81-99 [facility] Comment on above: Performed By: #### L 100.0100, L500.4050 #### [facility] [address] [place], [address] Monocytes/100 WBC (Bld) 8.1 % Normal 0-10 [facility] Comment on above: Performed By: #### L 100.0100, L500.4050 #### [facility] [address] [place], [address] Neutrophils/100 WBC (Bld) 72.7 % High 47-70 [facility] Comment on above: Performed By: #### L 100.0100, L500.4050 #### [facility] [address] [place], [address] Nucleated RBC (Bld) [#/Vol] 0 10*3/uL Normal 0-5 [facility] Comment on above: Performed By: #### L 100.0100, L500.4050 #### [facility] [address] [place], [address] Platelet mean volume (Bld) [Entitic vol] 10.6 fL Normal 6.2-12.0 [facility] Comment on above: Performed By: #### L 100.0100, L500.4050 #### [facility] [address] [place], [address] Platelets (Bld) [#/Vol] 300 10*3/uL Normal 150-450 [facility] Comment on above: Performed By: #### L 100.0100, L500.4050 #### [facility] [address] [place], [address] RBC (Bld) [#/Vol] 3.67 10*6/uL Low 4.2-5.4 [facility] Comment on above: Performed By: #### L 100.0100, L500.4050 #### [facility] [address] [place], [address] RDW SD 58.3 fl High 35.1-43.9 [facility] Comment on above: Performed By: #### L 100.0100, L500.4050 #### [facility] [address] [place], [address] WBC (Bld) [#/Vol] 8.2 10*3/uL Normal 4.4-11.0 [facility] Comment on above: Performed By: #### L 100.0100, L500.4050 #### [facility] [address] [place], [address] Comprehensive Metabolic Prof [facility] 02-22-2024 Albumin [Mass/Vol] 3.4 g/dL Normal 3.2-5.0 [facility] Comment on above: Performed By: #### L 100.0100, L500.4050 #### [facility] [address] [place], [address] Albumin/Globulin [Mass ratio] 1.0 {ratio} Normal 0.9-2.4 [facility] Comment on above: Performed By: #### L 100.0100, L500.4050 #### [facility] [address] [place], [address] ALK P 85 U/L Normal 45-117 [facility] Comment on above: Performed By: #### L 100.0100, L500.4050 #### [facility] [address] [place], [address] ALT [Catalytic activity/Vol] 29 U/L Normal 13-56 [facility] Comment on above: Performed By: #### L 100.0100, L500.4050 #### [facility] [address] [place], [address] AST [Catalytic activity/Vol] 25 U/L Normal 15-37 [facility] Comment on above: Result Comment: Mode rate Hemolysis, Result may be falsely increased. Performed By: #### L 100.0100, L500.4050 #### [facility] [address] [place], [address] Bilirubin [Mass/Vol] 0.70 mg/dL Normal 0.20-1.00 [facility] Comment on above: Result Comment: For patients on eltrombopag therapy, use of Dimension [place] TBIL is not recommended. Performed By: #### L 100.0100, L500.4050 #### [facility] [address] [place], [address] BUN/CRE 22.5 RATIO High 10-20 [facility] Comment on above: Performed By: #### L 100.0100, L500.4050 #### [facility] [address] [place], [address] CA,Total 8.9 mg/dL Normal 8.5-10.1 [facility] Comment on above: Performed By: #### L 100.0100, L500.4050 #### [facility] [address] [place], [address] Chloride [Moles/Vol] 109 mmol/L High 98-107 [facility] Comment on above: Performed By: #### L 100.0100, L500.4050 #### [facility] [address] [place], [address] CO2 [Moles/Vol] 27.0 mmol/L Normal 21.0-32.0 [facility] Comment on above: Performed By: #### L 100.0100, L500.4050 #### [facility] [address] [place], [address] Creatinine [Mass/Vol] 0.94 mg/dL Normal 0.55-1.02 [facility] Comment on above: Result Comment: The validity of the calculated GFR GFRAA in patients over 70 years has not been determined. Clinical correlation is essential. Performed By: #### L 100.0100, L500.4050 #### [facility] [address] [place], [address] ECRCL 52.57 ml/min Normal [facility] Comment on above: Performed By: #### L 100.0100, L500.4050 #### [facility] [address] [place], [address] EST GFR - AA 74 mL/min Normal >60 [facility] Comment on above: Result Comment: Afri can Cambodian GFR Calc Performed By: #### L 100.0100, L500.4050 #### [facility] [address] [place], [address] GAP 4 Low 5-15 [facility] Comment on above: Performed By: #### L 100.0100, L500.4050 #### [facility] [address] [place], [address] GFR/1.73 sq M.predicted among non-blacks MDRD (S/P/Bld) [Vol rate/Area] 61 mL/min/{1.73_m2} Normal >60 [facility] Comment on above: Result Comment: Non- GFR Calc Performed By: #### L 100.0100, L500.4050 #### [facility] [address] [place], [address] Globulin (S) [Mass/Vol] 3.5 g/dL Normal 2.2-4.2 [facility] Comment on above: Performed By: #### L 100.0100, L500.4050 #### [facility] [address] [place], [address] Glucose [Mass/Vol] 110 mg/dL High 74-106 [facility] Comment on above: Result Comment: Fast ing Glucose result from 100 to 125 mg/dL suggests IMPAIRED HOMEOSTASIS per A.D.A. criteria. Performed By: #### L 100.0100, L500.4050 #### [facility] [address] [place], [address] Potassium [Moles/Vol] 4.2 mmol/L Normal 3.5-5.1 [facility] Comment on above: Result Comment: Mode rate Hemolysis, Result may be falsely increased. Performed By: #### L 100.0100, L500.4050 #### [facility] [address] [place], [address] Sodium [Moles/Vol] 140 mmol/L Normal 136-145 [facility] Comment on above: Performed By: #### L 100.0100, L500.4050 #### [facility] [address] [place], [address] T PROT 6.9 g/dL Normal 6.4-8.2 [facility] Comment on above: Performed By: #### L 100.0100, L500.4050 #### [facility] [address] [place], [address] Urea nitrogen [Mass/Vol] 21 mg/dL High 7-18 [facility] Comment on above: Performed By: #### L 100.0100, L500.4050 #### [facility] [address] [place], [address] Oncology Visit Reporton 12-0 Oncology Visit Report [facility] [address] [place] [address] OFFICE VISIT Date of Service: 02/22/24 1408 MR#: [id number] Acct: [id number] Name: BERNICE HASSAN Rep #: [id number] : 1945 From: Umang Pate MD Age/Sex: 78/F Location: [facility] [place] Status: Signed HPI Subjective Date of [...] positive. Treatment: Hydrea started July 29, 2018 [facility] Medical History Wears glasses Post-menopausal Depression Anxiety [...] never substance use type: does not use justice/sikh: Adventist seatbelt use: always do you feel safe [...] PO DA (more content not included)... Normal [facility] CBC W/Diff, Automatedon 11- Absolute Lymph 1.16 X10 3/uL Normal 0.83-4.51 [facility] Comment on above: Performed By: #### L 501.5200, L501.9520 #### [facility] [address] [place], [address] Absolute Neut 3.3 X10 3/uL Normal 2.0-7.7 [facility] Comment on above: Performed By: #### L 501.5200, L501.9520 #### [facility] [address] [place], [address] Basophils/100 WBC (Bld) 0.4 % Normal 0-1 [facility] Comment on above: Performed By: #### L 501.5200, L501.9520 #### [facility] [address] [place], [address] Eosinophils/100 WBC (Bld) 1.0 % Normal 0-5 [facility] Comment on above: Performed By: #### L 501.5200, L501.9520 #### [facility] [address] [place], [address] Erythrocyte distribution width (RBC) [Ratio] 14.3 % Normal 11.6-14.6 [facility] Comment on above: Performed By: #### L 501.5200, L501.9520 #### [facility] [address] [place], [address] Hematocrit (Bld) [Volume fraction] 38.3 % Normal 37-47 [facility] Comment on above: Performed By: #### L 501.5200, L501.9520 #### [facility] [address] [place], [address] Hemoglobin (Bld) [Mass/Vol] 12.8 g/dL Normal 12.0-15.0 [facility] Comment on above: Performed By: #### L 501.5200, L501.9520 #### [facility] [address] [place], [address] IG% 0.400 Normal 0.0-0.9 [facility] Comment on above: Result Comment: IG% - Immature Granulocytes (promyelocytes, myelocytes and metamyelocytes) > 1% indicates that a LEFT SHIFT is Present. Performed By: #### L 501.5200, L501.9520 #### [facility] [address] [place], [address] Lymphocytes/100 WBC (Bld) 22.9 % Normal 19-41 [facility] Comment on above: Performed By: #### L 501.5200, L501.9520 #### [facility] [address] [place], [address] MCH (RBC) [Entitic mass] 37.0 pg High 27.0-32.0 [facility] Comment on above: Performed By: #### L 501.5200, L501.9520 #### [facility] [address] [place], [address] MCHC (RBC) [Mass/Vol] 33.4 g/dL Normal 32-36 [facility] Comment on above: Performed By: #### L 501.5200, L501.9520 #### [facility] [address] [place], [address] MCV (RBC) [Entitic vol] 110.7 fL High 81-99 [facility] Comment on above: Performed By: #### L 501.5200, L501.9520 #### [facility] [address] [place], [address] Monocytes/100 WBC (Bld) 9.5 % Normal 0-10 [facility] Comment on above: Performed By: #### L 501.5200, L501.9520 #### [facility] [address] [place], [address] Neutrophils/100 WBC (Bld) 65.8 % Normal 47-70 [facility] Comment on above: Performed By: #### L 501.5200, L501.9520 #### [facility] [address] [place], [address] Nucleated RBC (Bld) [#/Vol] 0 10*3/uL Normal 0-5 [facility] Comment on above: Performed By: #### L 501.5200, L501.9520 #### [facility] [address] [place], [address] Platelet mean volume (Bld) [Entitic vol] 11.0 fL Normal 6.2-12.0 [facility] Comment on above: Performed By: #### L 501.5200, L501.9520 #### [facility] [address] [place], [address] Platelets (Bld) [#/Vol] 292 10*3/uL Normal 150-450 [facility] Comment on above: Performed By: #### L 501.5200, L501.20 #### [facility] [address] [place], [address] RBC (Bld) [#/Vol] 3.46 10*6/uL Low 4.2-5.4 [facility] Comment on above: Performed By: #### L 501.5200, L501.9520 #### [facility] [address] [place], [address] RDW SD 57.3 fl High 35.1-43.9 [facility] Comment on above: Performed By: #### L 501.5200, L501.9520 #### [facility] [address] [place], [address] WBC (Bld) [#/Vol] 5.1 10*3/uL Normal 4.4-11.0 [facility] Comment on above: Performed By: #### L 501.5200, L501.9520 #### [facility] [address] [place], [address] Comprehensive Metabolic Prof ilon 01-31-2024 Albumin [Mass/Vol] 3.5 g/dL Normal 3.2-5.0 [facility] Comment on above: Performed By: #### L 501.5200, L501.9520 #### [facility] [address] [place], [address] Albumin/Globulin [Mass ratio] 1.0 {ratio} Normal 0.9-2.4 [facility] Comment on above: Performed By: #### L 501.5200, L501.9520 #### [facility] [address] [place], [address] ALK P 96 U/L Normal 45-117 [facility] Comment on above: Performed By: #### L 501.5200, L501.9520 #### [facility] [address] [place], [address] ALT [Catalytic activity/Vol] 19 U/L Normal 13-56 [facility] Comment on above: Performed By: #### L 501.5200, L501.9520 #### [facility] [address] [place], [address] AST [Catalytic activity/Vol] 33 U/L Normal 15-37 [facility] Comment on above: Result Comment: Mode rate Hemolysis, Result may be falsely increased. Performed By: #### L 501.5200, L501.9520 #### [facility] [address] [place], [address] Bilirubin [Mass/Vol] 0.50 mg/dL Normal 0.20-1.00 [facility] Comment on above: Result Comment: For patients on eltrombopag therapy, use of Dimension [place] TBIL is not recommended. Performed By: #### L 501.5200, L501.9520 #### [facility] [address] [place], [address] BUN/CRE 23.5 RATIO High 10-20 [facility] Comment on above: Performed By: #### L 501.5200, L501.9520 #### [facility] [address] [place], [address] CA,Total 9.1 mg/dL Normal 8.5-10.1 [facility] Comment on above: Performed By: #### L 501.5200, L501.9520 #### [facility] [address] [place], [address] Chloride [Moles/Vol] 109 mmol/L High 98-107 [facility] Comment on above: Performed By: #### L 501.5200, L501.9520 #### [facility] [address] [place], [address] CO2 [Moles/Vol] 24.0 mmol/L Normal 21.0-32.0 [facility] Comment on above: Performed By: #### L 501.5200, L501.9520 #### [facility] [address] [place], [address] Creatinine [Mass/Vol] 0.94 mg/dL Normal 0.55-1.02 [facility] Comment on above: Result Comment: The validity of the calculated GFR GFRAA in patients over 70 years has not been determined. Clinical correlation is essential. Performed By: #### L 501.5200, L501.9520 #### [facility] [address] [place], [address] EST GFR - AA 74 mL/min Normal >60 [facility] Comment on above: Result Comment: Afri can Cambodian GFR Calc Performed By: #### L 501.5200, L501.9520 #### [facility] [address] [place], [address] GAP 9 Normal 5-15 [facility] Comment on above: Performed By: #### L 501.5200, L501.9520 #### [facility] [address] [place], [address] GFR/1.73 sq M.predicted among non-blacks MDRD (S/P/Bld) [Vol rate/Area] 61 mL/min/{1.73_m2} Normal >60 [facility] Comment on above: Result Comment: Non- GFR Calc Performed By: #### L 501.5200, L501.9520 #### [facility] [address] [place], [address] Globulin (S) [Mass/Vol] 3.6 g/dL Normal 2.2-4.2 [facility] Comment on above: Performed By: #### L 501.5200, L501.9520 #### [facility] [address] [place], [address] Glucose [Mass/Vol] 108 mg/dL High 74-106 [facility] Comment on above: Result Comment: Fast ing Glucose result from 100 to 125 mg/dL suggests IMPAIRED HOMEOSTASIS per A.D.A. criteria. Performed By: #### L 501.5200, L501.9520 #### [facility] [address] [place], [address] Potassium [Moles/Vol] 4.1 mmol/L Normal 3.5-5.1 [facility] Comment on above: Result Comment: Mode rate Hemolysis, Result may be falsely increased. Performed By: #### L 501.5200, L501.9520 #### [place] [facility] [address] [place], [address] Sodium [Moles/Vol] 141 mmol/L Normal 136-145 [facility] Comment on above: Performed By: #### L 501.5200, L501.9520 #### [facility] [address] [place], [address] T PROT 7.1 g/dL Normal 6.4-8.2 [facility] Comment on above: Performed By: #### L 501.5200, L501.9520 #### [facility] [address] [place], [address] Urea nitrogen [Mass/Vol] 22 mg/dL High 7-18 [facility] Comment on above: Performed By: #### L 501.5200, L501.9520 #### [facility] [address] [place], [address] Thyroid Stim Hormone (TSH)on 01-31-2024 TSH 1.630 uIU/mL Normal 0.358-3.74 0 [facility] Comment on above: Performed By: #### L 501.5200, L501.9520 #### [facility] [address] [place], [address] Vitamin D,25 Hydroxyon 01-30 Vitamin D 25-OH 20.8 ng/mL Normal [facility] Comment on above: Result Comment: [place] min D 25(OH) Status Range Deficiency <20 ng/mL (50nmol/L) Insufficiency 20 - 30 ng/mL (50 - 75 nmol/L) Sufficiency 30 - 100 ng/mL (75 - 250 nmol/L) Toxicity >100 ng/mL (>250 nmol/L) Performed By: #### L 501.5200, L501.9520 #### [facility] [address] [place], [address] Laboratory - Hematology and Cell countsOrdered By: Umang Pate on 11-09-2023 Anisocytosis Ql (Bld) 1+ [facility] Serum or plasma thyroid stim ulating hormone (TSH) measurement (units/volume)Ordered By: Umang Pate on 08-05-2023 TSH Qn 1.06 uIU/mL 0.358-3.74 [facility] Absolute lymphocyte countOrd ered By: Dago Emery on 01-25-2023 Lymphocytes Auto (Unsp spec) [#/Vol] 1.06 10*3/uL 0.83-4.51 [facility] Basophil percentageOrdered B y: Dago Emery on 01-25-2023 Basophils/100 WBC (Bld) 0.2 % 0-1 [facility] Bilirubin [Mass/Vol] 0.40 mg/dL 0.20-1.00 [facility] [place] Comment on above: For patients on eltr ombopag therapy, use of Dimension [place] TBIL is not recommended. Chloride [Moles/Vol] 108 mmol/L 98-107 [facility] [place] Eosinophils/100 WBC (Bld) 1.1 % 0-5 [facility] Glucose [Mass/Vol] 116 mg/dL 74-106 [facility] Comment on above: Fasting Glucose resu lt from 100 to 125 mg/dL suggests IMPAIRED HOMEOSTASIS per A.D.A. criteria. Neutrophils (Bld) [#/Vol] 2.8 10*3/uL 2.0-7.7 [facility] Neutrophils/100 WBC (Bld) 64.3 % 47-70 [facility] Potassium [Moles/Vol] 3.6 mmol/L 3.5-5.1 [facility] Protein [Mass/Vol] 7.1 g/dL 6.4-8.2 [facility] Sodium [Moles/Vol] 141 mmol/L 136-145 [facility] WBC (Bld) [#/Vol] 4.4 10*3/uL 4.4-11.0 [facility] Blood erythrocytes count (nu mber/volume)Ordered By: Dago Emery on 01-25-2023 RBC (Bld) [#/Vol] 3.25 10*6/uL 4.2-5.4 [facility] Blood hemoglobin measurement (mass/volume)Ordered By: Dago Emery on 01-25-2023 Hemoglobin (Bld) [Mass/Vol] 11.8 g/dL 12.0-15.0 [facility] Blood lymphocytes/100 leukoc ytesOrdered By: Dago Emery on 01-25-2023 Lymphocytes/100 WBC (Bld) 24.1 % 19-41 [facility] Blood manual differential co mment interpretation (narrative result)Ordered By: Dago Emery on 01-25-2023 Manual differential comment Jack (Bld) [Interp] SCANNED [facility] Blood monocytes/100 leukocyt esOrdered By: Dago Emery on 01-25-2023 Monocytes/100 WBC (Bld) 9.8 % 0-10 [facility] Blood platelet mean volumeOr dered By: Dago Emery on 01-25-2023 Platelet mean volume (Bld) [Entitic vol] 11.2 fL 6.2-12.0 [facility] Determination of erythrocyte mean corpuscular volume (MCV)Ordered By: Dago Emery on 01-25-2023 MCV (RBC) [Entitic vol] 113.8 fL 81-99 [facility] Hematocrit Auto (Bld) [Volum e fraction]Ordered By: Dago Emery on 01-25-2023 Hematocrit (Bld) [Volume fraction] 37.0 % 37-47 [facility] Laboratory - Chemistry and C hemistry - challengeOrdered By: Dago Emery on 01-25-2023 ALP [Catalytic activity/Vol] 82 U/L 45-117 [facility] ALT [Catalytic activity/Vol] 15 U/L 13-56 [facility] CO2 [Moles/Vol] 26.0 mmol/L 21.0-32.0 [facility] Globulin (S) [Mass/Vol] 3.8 g/dL 2.2-4.2 [facility] Urea nitrogen/Creatinine [Mass ratio] 18.6 mg/mg 10-20 [facility] Laboratory - Hematology and Cell countsOrdered By: Dago Emery on 01-25-2023 Anisocytosis Ql (Bld) 2+ [facility] Erythrocyte distribution width (RBC) [Entitic vol] 65.5 fL 35.1-43.9 [facility] Erythrocyte distribution width (RBC) [Ratio] 15.7 % 11.6-14.6 [facility] Immature granulocytes/100 WBC (Bld) 0.500 % 0.0-0.9 [facility] Comment on above: IG% - Immature Granu locytes (promyelocytes, myelocytes and metamyelocytes) > 1% indicates that a LEFT SHIFT is Present. MCH (RBC) [Entitic mass] 36.3 pg 27.0-32.0 [facility] Nucleated RBC/100 WBC (Bld) [Ratio] 0 % 0-5 [facility] MCHC Auto (RBC) [Mass/Vol]Or dered By: Dago Emery on 01-25-2023 MCHC (RBC) [Mass/Vol] 31.9 g/dL 32-36 [facility] Macrocytes detectionOrdered By: Dago Emery on 01-25-2023 Macrocytes Ql (Bld) 2+ [facility] No Panel InformationOrdered By: Dago Emery on 01-25-2023 Estimated GFR (MDRD) Amer 67 mL/min >60 [facility] Comment on above: GFR Calc Estimated GFR (MDRD) Non-Af Amer 56 mL/min >60 [facility] Comment on above: Non- GFR Calc Thyroid Stimulating Hormone (TSH) 1.65 uIU/mL 0.358-3.74 [facility] Vitamin D 25-Hydroxy 39.0 ng/mL [facility] [place] Comment on above: Vitamin D 25(OH) Sta tus Range Deficiency <20 ng/mL (50nmol/L) Insufficiency 20 - 30 ng/mL (50 - 75 nmol/L) Sufficiency 30 - 100 ng/mL (75 - 250 nmol/L) Toxicity >100 ng/mL (>250 nmol/L) Platelets bldOrdered By: Dago Emery on 01-25-2023 Platelets (Bld) [#/Vol] 265 10*3/uL 150-450 [facility] Serum or plasma albumin niels urement (mass/volume)Ordered By: Dago Emery on 01-25-2023 Albumin [Mass/Vol] 3.3 g/dL 3.2-5.0 [facility] Serum or plasma albumin/glob ulin mass ratioOrdered By: Dago Emery 01-25-2023 Albumin/Globulin [Mass ratio] 0.9 {ratio} 0.9-2.4 [facility] Serum or plasma calcium inels urement (mass/volume)Ordered By: Dago Emery on 01-25-2023 Calcium [Mass/Vol] 9.1 mg/dL 8.5-10.1 [facility] Serum or plasma creatinine m easurement (mass/volume)Ordered By: Dago Emery on 01-25-2023 Creatinine [Mass/Vol] 1.02 mg/dL 0.55-1.02 [facility] Comment on above: The validity of the calculated GFR & GFRAA in patients over 70 years has not been determined. Clinical correlation is essential. Serum or plasma urea nitroge n measurement (mass/volume)Ordered By: Dago Emery on 01-25-2023 Urea nitrogen [Mass/Vol] 19 mg/dL 7-18 [facility] Thin prep Papanicolaou smear with manual screeningOrdered By: Dago Emery on 01-25-2023 Thin prep Papanicolaou smear with manual screening 25 U/L 15- [facility] Thin prep Papanicolaou smear with manual screening 7 5-15 [facility] Absolute lymphocyte countOrd ered By: Carolyn Ruvalcaba on 11-04-2022 Lymphocytes Auto (Unsp spec) [#/Vol] 1.04 10*3/uL 0.83-4.51 [facility] Basophil percentageOrdered B y: Carolyn Ruvalcaba on 11-04-2022 Basophils/100 WBC (Bld) 0.5 % 0-1 [facility] Bilirubin [Mass/Vol] 0.50 mg/dL 0.20-1.00 [facility] [place] Comment on above: For patients on eltr ombopag therapy, use of Dimension [place] TBIL is not recommended. Chloride [Moles/Vol] 108 mmol/L 98-107 [facility] [place] Eosinophils/100 WBC (Bld) 1.1 % 0-5 [facility] Glucose [Mass/Vol] 127 mg/dL 74-106 [facility] Comment on above: Fasting Glucose resu lt greater than or equal to 126 mg/dL suggests DIABETES MELLITUS per A.D.A. criteria. Neutrophils (Bld) [#/Vol] 4.6 10*3/uL 2.0-7.7 [facility] Neutrophils/100 WBC (Bld) 74.8 % 47-70 [facility] Potassium [Moles/Vol] 3.8 mmol/L 3.5-5.1 [facility] Protein [Mass/Vol] 7.4 g/dL 6.4-8.2 [facility] Sodium [Moles/Vol] 140 mmol/L 136-145 [facility] WBC (Bld) [#/Vol] 6.2 10*3/uL 4.4-11.0 [facility] Blood erythrocytes count (nu mber/volume)Ordered By: Carolyn Ruvalcaba on 11-04-2022 RBC (Bld) [#/Vol] 3.43 10*6/uL 4.2-5.4 [facility] Blood hemoglobin measurement (mass/volume)Ordered By: Carolyn Ruvalcaba on 11-04-2022 Hemoglobin (Bld) [Mass/Vol] 12.0 g/dL 12.0-15.0 [facility] Blood lymphocytes/100 leukoc ytesOrdered By: Carolyn Ruvalcaba on 11-04-2022 Lymphocytes/100 WBC (Bld) 16.8 % 19-41 [facility] Blood monocytes/100 leukocyt esOrdered By: Carolyn Ruvalcaba on 11-04-2022 Monocytes/100 WBC (Bld) 6.5 % 0-10 [facility] Blood platelet mean volumeOr dered By: Carolyn Ruvalcaba on 11-04-2022 Platelet mean volume (Bld) [Entitic vol] 10.0 fL 6.2-12.0 [facility] Determination of erythrocyte mean corpuscular volume (MCV)Ordered By: Carolyn Ruvalcaba on 11-04-2022 MCV (RBC) [Entitic vol] 110.5 fL 81-99 [facility] Hematocrit Auto (Bld) [Volum e fraction]Ordered By: Carolyn Ruvalcaba on 11-04-2022 Hematocrit (Bld) [Volume fraction] 37.9 % 37-47 [facility] Laboratory - Chemistry and C hemistry - challengeOrdered By: Carolyn Ruvalcaba on 11-04-2022 ALP [Catalytic activity/Vol] 89 U/L 45-117 [facility] ALT [Catalytic activity/Vol] 18 U/L 13-56 [facility] CO2 [Moles/Vol] 25.0 mmol/L 21.0-32.0 [facility] Globulin (S) [Mass/Vol] 4.1 g/dL 2.2-4.2 [facility] Urea nitrogen/Creatinine [Mass ratio] 14.8 mg/mg 10-20 [facility] Laboratory - Hematology and Cell countsOrdered By: Carolyn Ruvalcaba on 11-04-2022 Erythrocyte distribution width (RBC) [Entitic vol] 62.5 fL 35.1-43.9 [facility] Erythrocyte distribution width (RBC) [Ratio] 15.6 % 11.6-14.6 [facility] Immature granulocytes/100 WBC (Bld) 0.300 % 0.0-0.9 [facility] Comment on above: IG% - Immature Granu locytes (promyelocytes, myelocytes and metamyelocytes) > 1% indicates that a LEFT SHIFT is Present. MCH (RBC) [Entitic mass] 35.0 pg 27.0-32.0 [facility] Nucleated RBC/100 WBC (Bld) [Ratio] 0 % 0-5 [facility] MCHC Auto (RBC) [Mass/Vol]Or dered By: Carolyn Ruvalcaba on 11-04-2022 MCHC (RBC) [Mass/Vol] 31.7 g/dL 32-36 [facility] No Panel InformationOrdered By: Carolyn Ruvalcaba on 11-04-2022 Estimated Creatinine Clearance Calc 41.46 ml/min [facility] Estimated GFR (MDRD) Amer 73 mL/min >60 [facility] Comment on above: GFR Calc Estimated GFR (MDRD) Non-Af Amer 60 mL/min >60 [facility] Comment on above: Non- GFR Calc Platelets bldOrdered By: Nayan Ruvalcaba on 11-04-2022 Platelets (Bld) [#/Vol] 298 10*3/uL 150-450 [facility] Serum or plasma albumin niels urement (mass/volume)Ordered By: Carolyn Ruvalcaba on 11-04-2022 Albumin [Mass/Vol] 3.3 g/dL 3.2-5.0 [facility] Serum or plasma albumin/glob ulin mass ratioOrdered By: Carolyn Peg on 11-04-2022 Albumin/Globulin [Mass ratio] 0.8 {ratio} 0.9-2.4 [facility] Serum or plasma calcium niels urement (mass/volume)Ordered By: Carolyn Ruvalcaba on 11-04-2022 Calcium [Mass/Vol] 9.2 mg/dL 8.5-10.1 [facility] Serum or plasma creatinine m easurement (mass/volume)Ordered By: Carolynmilka Ruvalcaba on 11-04-2022 Creatinine [Mass/Vol] 0.95 mg/dL 0.55-1.02 [facility] Comment on above: The validity of the calculated GFR & GFRAA in patients over 70 years has not been determined. Clinical correlation is essential. Serum or plasma urea nitroge n measurement (mass/volume)Ordered By: [facility] Peg on 11-04-2022 Urea nitrogen [Mass/Vol] 14 mg/dL 7-18 [facility] Thin prep Papanicolaou smear with manual screeningOrdered By: [facility] Thin prep Papanicolaou smear with manual screening 19 U/L 15-37 [facility] Thin prep Papanicolaou smear with manual screening 7 5-15 [facility] Absolute lymphocyte countOrd ered By: Dago Emery on 10-10-2022 Lymphocytes Auto (Unsp spec) [#/Vol] 1.27 10*3/uL 0.83-4.51 [facility] Basophil percentageOrdered B y: Dago Emery on 10-10-2022 Basophils/100 WBC (Bld) 0.4 % 0-1 [facility] Eosinophils/100 WBC (Bld) 5.2 % 0-5 [facility] Neutrophils (Bld) [#/Vol] 3.2 10*3/uL 2.0-7.7 [facility] Neutrophils/100 WBC (Bld) 61.5 % 47-70 [facility] WBC (Bld) [#/Vol] 5.2 10*3/uL 4.4-11.0 [facility] Chloride [Moles/Vol] 109 mmol/L 98-107 [facility] [place] Glucose [Mass/Vol] 101 mg/dL 74-106 [facility] Comment on above: Fasting Glucose resu lt from 100 to 125 mg/dL suggests IMPAIRED HOMEOSTASIS per A.D.A. criteria. Potassium [Moles/Vol] 3.9 mmol/L 3.5-5.1 [facility] Sodium [Moles/Vol] 138 mmol/L 136-145 [facility] Blood erythrocytes count (nu mber/volume)Ordered By: Dago Emery on 10-10-2022 RBC (Bld) [#/Vol] 2.93 10*6/uL 4.2-5.4 [facility] Blood hemoglobin measurement (mass/volume)Ordered By: Dago Emery on 10-10-2022 Hemoglobin (Bld) [Mass/Vol] 10.5 g/dL 12.0-15.0 [facility] Blood lymphocytes/100 leukoc ytesOrdered By: Dago Emery on 10-10-2022 Lymphocytes/100 WBC (Bld) 24.4 % 19-41 [facility] Blood monocytes/100 leukocyt esOrdered By: Dago Emery on 10-10-2022 Monocytes/100 WBC (Bld) 8.1 % 0-10 [facility] Blood platelet mean volumeOr dered By: Dago Emery on 10-10-2022 Platelet mean volume (Bld) [Entitic vol] 10.3 fL 6.2-12.0 [facility] Determination of erythrocyte mean corpuscular volume (MCV)Ordered By: Dago Emery 10-10-2022 MCV (RBC) [Entitic vol] 109.6 fL 81-99 [facility] Hematocrit Auto (Bld) [Volum e fraction]Ordered By: Dago Emery 10-10-2022 Hematocrit (Bld) [Volume fraction] 32.1 % 37-47 [facility] Laboratory - Chemistry and C hemistry - challengeOrdered By: Dago Emery 10-10-2022 CO2 [Moles/Vol] 24.0 mmol/L 21.0-32.0 [facility] Urea nitrogen/Creatinine [Mass ratio] 24.1 mg/mg 10-20 [facility] Laboratory - Hematology and Cell countsOrdered By: Dago Emery 10-10-2022 Erythrocyte distribution width (RBC) [Entitic vol] 54.4 fL 35.1-43.9 [facility] Erythrocyte distribution width (RBC) [Ratio] 13.9 % 11.6-14.6 [facility] Immature granulocytes/100 WBC (Bld) 0.400 % 0.0-0.9 [facility] Comment on above: IG% - Immature Granu locytes (promyelocytes, myelocytes and metamyelocytes) > 1% indicates that a LEFT SHIFT is Present. MCH (RBC) [Entitic mass] 35.8 pg 27.0-32.0 [facility] Nucleated RBC/100 WBC (Bld) [Ratio] 0 % 0-5 [facility] MCHC Auto (RBC) [Mass/Vol]Or dered By: Dago Emery on 10-10-2022 MCHC (RBC) [Mass/Vol] 32.7 g/dL 32-36 [facility] No Panel InformationOrdered By: Dago Emery on 10-10-2022 Estimated Creatinine Clearance Calc 41.05 ml/min [facility] Estimated GFR (MDRD) Amer 69 mL/min >60 [facility] Comment on above: GFR Calc Estimated GFR (MDRD) Non-Af Amer 57 mL/min >60 [facility] Comment on above: Non- GFR Calc Platelets bldOrdered By: Dago Emery on 10-10-2022 Platelets (Bld) [#/Vol] 409 10*3/uL 150-450 [facility] Serum or plasma calcium niels urement (mass/volume)Ordered By: Dago Emery on 10-10-2022 Calcium [Mass/Vol] 8.7 mg/dL 8.5-10.1 [facility] Serum or plasma creatinine m easurement (mass/volume)Ordered By: Dago Emery on 10-10-2022 Creatinine [Mass/Vol] 1.00 mg/dL 0.55-1.02 [facility] Comment on above: The validity of the calculated GFR & GFRAA in patients over 70 years has not been determined. Clinical correlation is essential. Serum or plasma urea nitroge n measurement (mass/volume)Ordered By: Dago Emery on 10-10-2022 Urea nitrogen [Mass/Vol] 24 mg/dL 7-18 [facility] Thin prep Papanicolaou smear with manual screeningOrdered By: Dago Emery on 10-10-2022 Thin prep Papanicolaou smear with manual screening 5 5-15 [facility] Absolute lymphocyte countOrd ered By: Dr. Pate on 08-05-2022 Lymphocytes Auto (Unsp spec) [#/Vol] 1.00 10*3/uL 0.83-4.51 [facility] Basophil percentageOrdered B y: Dr. Pate on 08-05-2022 Basophils/100 WBC (Bld) 0.6 % 0-1 [facility] Chloride [Moles/Vol] 111 mmol/L 98-107 [facility] [place] Eosinophils/100 WBC (Bld) 2.5 % 0-5 [facility] Glucose [Mass/Vol] 116 mg/dL 74-106 [facility] Comment on above: Fasting Glucose resu lt from 100 to 125 mg/dL suggests IMPAIRED HOMEOSTASIS per A.D.A. criteria. Neutrophils (Bld) [#/Vol] 3.5 10*3/uL 2.0-7.7 [facility] Neutrophils/100 WBC (Bld) 67.0 % 47-70 [facility] Potassium [Moles/Vol] 3.9 mmol/L 3.5-5.1 [facility] Comment on above: Slight Hemolysis, Re sult may be falsely increased. Sodium [Moles/Vol] 141 mmol/L 136-145 [facility] WBC (Bld) [#/Vol] 5.3 10*3/uL 4.4-11.0 [facility] Blood erythrocytes count (nu mber/volume)Ordered By: Dr. Pate on 08-05-2022 RBC (Bld) [#/Vol] 3.36 10*6/uL 4.2-5.4 [facility] Blood hemoglobin measurement (mass/volume)Ordered By: Dr. Pate on 08-05-2022 Hemoglobin (Bld) [Mass/Vol] 12.4 g/dL 12.0-15.0 [facility] Blood lymphocytes/100 leukoc ytesOrdered By: Dr. Pate on 08-05-2022 Lymphocytes/100 WBC (Bld) 18.9 % 19-41 [facility] Blood monocytes/100 leukocyt esOrdered By: Dr. Pate on 08-05-2022 Monocytes/100 WBC (Bld) 10.2 % 0-10 [facility] Blood platelet mean volumeOr dered By: Dr. Pate on 08-05-2022 Platelet mean volume (Bld) [Entitic vol] 10.6 fL 6.2-12.0 [facility] Determination of erythrocyte mean corpuscular volume (MCV)Ordered By: Dr. Pate on 08-05-2022 MCV (RBC) [Entitic vol] 114.6 fL 81-99 [facility] Hematocrit Auto (Bld) [Volum e fraction]Ordered By: Dr. Pate on 08-05-2022 Hematocrit (Bld) [Volume fraction] 38.5 % 37-47 [facility] Laboratory - Chemistry and C hemistry - challengeOrdered By: Dr. Pate on 08-05-2022 CO2 [Moles/Vol] 24.0 mmol/L 21.0-32.0 [facility] Urea nitrogen/Creatinine [Mass ratio] 23.1 mg/mg 10-20 [facility] Laboratory - Hematology and Cell countsOrdered By: Dr. Pate on 08-05-2022 Erythrocyte distribution width (RBC) [Entitic vol] 59.2 fL 35.1-43.9 [facility] Erythrocyte distribution width (RBC) [Ratio] 14.0 % 11.6-14.6 [facility] Immature granulocytes/100 WBC (Bld) 0.800 % 0.0-0.9 [facility] Comment on above: IG% - Immature Granu locytes (promyelocytes, myelocytes and metamyelocytes) > 1% indicates that a LEFT SHIFT is Present. MCH (RBC) [Entitic mass] 36.9 pg 27.0-32.0 [facility] Nucleated RBC/100 WBC (Bld) [Ratio] 0 % 0-5 [facility] MCHC Auto (RBC) [Mass/Vol]Or dered By: Dr. Pate on 08-05-2022 MCHC (RBC) [Mass/Vol] 32.2 g/dL 32-36 [facility] No Panel InformationOrdered By: Dr. Pate on 08-05-2022 Estimated Creatinine Clearance Calc 37.88 ml/min [facility] Estimated GFR (MDRD) Amer 66 mL/min >60 [facility] Comment on above: GFR Calc Estimated GFR (MDRD) Non-Af Amer 54 mL/min >60 [facility] Comment on above: Non- GFR Calc Platelets bldOrdered By: Dr. Pate on 08-05-2022 Platelets (Bld) [#/Vol] 327 10*3/uL 150-450 [facility] Serum or plasma albumin niels urement (mass/volume)Ordered By: Dr. Pate on 08-05-2022 Albumin [Mass/Vol] 3.3 g/dL 3.2-5.0 [facility] Serum or plasma calcium niels urement (mass/volume)Ordered By: Dr. Pate on 08-05-2022 Calcium [Mass/Vol] 8.9 mg/dL 8.5-10.1 [facility] Serum or plasma creatinine m easurement (mass/volume)Ordered By: Dr. Pate on 08-05-2022 Creatinine [Mass/Vol] 1.04 mg/dL 0.55-1.02 [facility] Comment on above: The validity of the calculated GFR & GFRAA in patients over 70 years has not been determined. Clinical correlation is essential. Serum or plasma urea nitroge n measurement (mass/volume)Ordered By: Dr. Pate on 08-05-2022 Urea nitrogen [Mass/Vol] 24 mg/dL 7-18 [facility] Thin prep Papanicolaou smear with manual screeningOrdered By: Dr. Pate on 08-05-2022 Thin prep Papanicolaou smear with manual screening 6 5-15 [facility] Absolute lymphocyte countOrd ered By: Dr. Pate on 07-20-2022 Lymphocytes Auto (Unsp spec) [#/Vol] 1.03 10*3/uL 0.83-4.51 [facility] Basophil percentageOrdered B y: Dr. Pate on 07-20-2022 Basophils/100 WBC (Bld) 0.3 % 0-1 [facility] Bilirubin [Mass/Vol] 0.40 mg/dL 0.20-1.00 [facility] [place] Comment on above: For patients on eltr ombopag therapy, use of Dimension [place] TBIL is not recommended. Chloride [Moles/Vol] 107 mmol/L 98-107 [facility] Eosinophils/100 WBC (Bld) 2.4 % 0-5 [facility] Glucose [Mass/Vol] 109 mg/dL 74-106 [facility] Comment on above: Fasting Glucose resu lt from 100 to 125 mg/dL suggests IMPAIRED HOMEOSTASIS per A.D.A. criteria. Neutrophils (Bld) [#/Vol] 4.0 10*3/uL 2.0-7.7 [facility] Neutrophils/100 WBC (Bld) 68.9 % 47-70 [facility] Potassium [Moles/Vol] 4.0 mmol/L 3.5-5.1 [facility] Protein [Mass/Vol] 7.2 g/dL 6.4-8.2 [facility] Sodium [Moles/Vol] 140 mmol/L 136-145 [facility] WBC (Bld) [#/Vol] 5.8 10*3/uL 4.4-11.0 [facility] Blood erythrocytes count (nu mber/volume)Ordered By: Dr. Pate on 07-20-2022 RBC (Bld) [#/Vol] 3.25 10*6/uL 4.2-5.4 [facility] Blood hemoglobin measurement (mass/volume)Ordered By: Dr. Pate on 07-20-2022 Hemoglobin (Bld) [Mass/Vol] 12.2 g/dL 12.0-15.0 [facility] Blood lymphocytes/100 leukoc ytesOrdered By: Dr. Pate on 07-20-2022 Lymphocytes/100 WBC (Bld) 17.7 % 19-41 [facility] Blood monocytes/100 leukocyt esOrdered By: Dr. Pate on 07-20-2022 Monocytes/100 WBC (Bld) 10.2 % 0-10 [facility] Blood platelet mean volumeOr dered By: Dr. Pate on 07-20-2022 Platelet mean volume (Bld) [Entitic vol] 11.0 fL 6.2-12.0 [facility] Determination of erythrocyte mean corpuscular volume (MCV)Ordered By: Dr. Pate on 07-20-2022 MCV (RBC) [Entitic vol] 115.1 fL 81-99 [facility] Hematocrit Auto (Bld) [Volum e fraction]Ordered By: Dr. Pate on 07-20-2022 Hematocrit (Bld) [Volume fraction] 37.4 % 37-47 [facility] Laboratory - Chemistry and C hemistry - challengeOrdered By: Dr. Pate on 07-20-2022 ALP [Catalytic activity/Vol] 89 U/L 45-117 [facility] ALT [Catalytic activity/Vol] 26 U/L 13-56 [facility] CO2 [Moles/Vol] 25.0 mmol/L 21.0-32.0 [facility] Globulin (S) [Mass/Vol] 3.9 g/dL 2.2-4.2 [facility] Urea nitrogen/Creatinine [Mass ratio] 18.1 mg/mg 10-20 [facility] Laboratory - Hematology and Cell countsOrdered By: Dr. Pate on 07-20-2022 Erythrocyte distribution width (RBC) [Entitic vol] 63.6 fL 35.1-43.9 [facility] Erythrocyte distribution width (RBC) [Ratio] 15.0 % 11.6-14.6 [facility] Immature granulocytes/100 WBC (Bld) 0.500 % 0.0-0.9 [facility] Comment on above: IG% - Immature Granu locytes (promyelocytes, myelocytes and metamyelocytes) > 1% indicates that a LEFT SHIFT is Present. MCH (RBC) [Entitic mass] 37.5 pg 27.0-32.0 [facility] Nucleated RBC/100 WBC (Bld) [Ratio] 0 % 0-5 [facility] MCHC Auto (RBC) [Mass/Vol]Or dered By: Dr. Pate on 07-20-2022 MCHC (RBC) [Mass/Vol] 32.6 g/dL 32-36 [facility] No Panel InformationOrdered By: Dr. Pate on 07-20-2022 Estimated GFR (MDRD) Amer 58 mL/min >60 [facility] Comment on above: GFR Calc Estimated GFR (MDRD) Non-Af Amer 48 mL/min >60 [facility] Comment on above: Non- GFR Calc Thyroid Stimulating Hormone (TSH) 1.57 uIU/mL 0.358-3.74 [facility] Vitamin D 25-Hydroxy 32.7 ng/mL [facility] Comment on above: Vitamin D 25(OH) Sta tus Range Deficiency <20 ng/mL (50nmol/L) Insufficiency 20 - 30 ng/mL (50 - 75 nmol/L) Sufficiency 30 - 100 ng/mL (75 - 250 nmol/L) Toxicity >100 ng/mL (>250 nmol/L) Platelets bldOrdered By: Dr. Pate on 07-20-2022 Platelets (Bld) [#/Vol] 262 10*3/uL 150-450 [facility] Serum or plasma albumin niels urement (mass/volume)Ordered By: Dr. Pate on 07-20-2022 Albumin [Mass/Vol] 3.3 g/dL 3.2-5.0 [facility] Serum or plasma albumin/glob ulin mass ratioOrdered By: Dr. Pate on 07-20-2022 Albumin/Globulin [Mass ratio] 0.8 {ratio} 0.9-2.4 [facility] Serum or plasma calcium niels urement (mass/volume)Ordered By: Dr. Pate on 07-20-2022 Calcium [Mass/Vol] 8.9 mg/dL 8.5-10.1 [facility] Serum or plasma creatinine m easurement (mass/volume)Ordered By: Dr. Pate on 07-20-2022 Creatinine [Mass/Vol] 1.16 mg/dL 0.55-1.02 [facility] Comment on above: The validity of the calculated GFR & GFRAA in patients over 70 years has not been determined. Clinical correlation is essential. Serum or plasma urea nitroge n measurement (mass/volume)Ordered By: Dr. Pate on 07-20-2022 Urea nitrogen [Mass/Vol] 21 mg/dL 7-18 [facility] Thin prep Papanicolaou smear with manual screeningOrdered By: Dr. Pate on 07-20-2022 Thin prep Papanicolaou smear with manual screening 28 U/L 15-37 [facility] Thin prep Papanicolaou smear with manual screening 8 5-15 [facility] Absolute lymphocyte countOrd ered By: Dr. Pate on 05-06-2022 Lymphocytes Auto (Unsp spec) [#/Vol] 1.13 10*3/uL 0.83-4.51 [facility] Basophil percentageOrdered B y: Dr. Pate on 05-06-2022 Basophils/100 WBC (Bld) 0.2 % 0-1 [facility] Bilirubin [Mass/Vol] 0.40 mg/dL 0.20-1.00 [facility] [place] Comment on above: For patients on eltr ombopag therapy, use of Dimension [place] TBIL is not recommended. Chloride [Moles/Vol] 106 mmol/L 98-107 [facility] [place] Eosinophils/100 WBC (Bld) 1.0 % 0-5 [facility] Glucose [Mass/Vol] 133 mg/dL 74-106 [facility] Comment on above: Fasting Glucose resu lt greater than or equal to 126 mg/dL suggests DIABETES MELLITUS per A.D.A. criteria. Neutrophils (Bld) [#/Vol] 2.5 10*3/uL 2.0-7.7 [facility] Neutrophils/100 WBC (Bld) 60.9 % 47-70 [facility] Potassium [Moles/Vol] 3.4 mmol/L 3.5-5.1 [facility] Protein [Mass/Vol] 7.2 g/dL 6.4-8.2 [facility] Sodium [Moles/Vol] 140 mmol/L 136-145 [facility] WBC (Bld) [#/Vol] 4.1 10*3/uL 4.4-11.0 [facility] Blood erythrocytes count (nu mber/volume)Ordered By: Dr. Pate on 05-06-2022 RBC (Bld) [#/Vol] 3.32 10*6/uL 4.2-5.4 [facility] Blood hemoglobin measurement (mass/volume)Ordered By: Dr. Pate on 05-06-2022 Hemoglobin (Bld) [Mass/Vol] 12.4 g/dL 12.0-15.0 [facility] Blood lymphocytes/100 leukoc ytesOrdered By: Dr. Pate on 05-06-2022 Lymphocytes/100 WBC (Bld) 27.5 % 19-41 [facility] Blood monocytes/100 leukocyt esOrdered By: Dr. Pate on 05-06-2022 Monocytes/100 WBC (Bld) 9.7 % 0-10 [facility] Blood platelet mean volumeOr dered By: Dr. Pate on 05-06-2022 Platelet mean volume (Bld) [Entitic vol] 10.6 fL 6.2-12.0 [facility] Determination of erythrocyte mean corpuscular volume (MCV)Ordered By: Dr. Pate on 05-06-2022 MCV (RBC) [Entitic vol] 112.0 fL 81-99 [facility] Hematocrit Auto (Bld) [Volum e fraction]Ordered By: Dr. Pate on 05-06-2022 Hematocrit (Bld) [Volume fraction] 37.2 % 37-47 [facility] Laboratory - Chemistry and C hemistry - challengeOrdered By: Dr. Pate on 05-06-2022 ALP [Catalytic activity/Vol] 75 U/L 45-117 [facility] ALT [Catalytic activity/Vol] 17 U/L 13-56 [facility] CO2 [Moles/Vol] 27.0 mmol/L 21.0-32.0 [facility] Globulin (S) [Mass/Vol] 3.8 g/dL 2.2-4.2 [facility] Urea nitrogen/Creatinine [Mass ratio] 20.2 mg/mg 10-20 [facility] Laboratory - Hematology and Cell countsOrdered By: Dr. Pate on 05-06-2022 Erythrocyte distribution width (RBC) [Entitic vol] 62.5 fL 35.1-43.9 [facility] Erythrocyte distribution width (RBC) [Ratio] 15.3 % 11.6-14.6 [facility] Immature granulocytes/100 WBC (Bld) 0.700 % 0.0-0.9 [facility] Comment on above: IG% - Immature Granu locytes (promyelocytes, myelocytes and metamyelocytes) > 1% indicates that a LEFT SHIFT is Present. MCH (RBC) [Entitic mass] 37.3 pg 27.0-32.0 [facility] Nucleated RBC/100 WBC (Bld) [Ratio] 0 % 0-5 [facility] Auto (RBC) [Mass/Vol]Or dered By: Dr. Pate on 05-06-2022 MCHC (RBC) [Mass/Vol] 33.3 g/dL 32-36 [facility] No Panel InformationOrdered By: Dr. Pate on 05-06-2022 Estimated Creatinine Clearance Calc 36.73 ml/min [facility] Estimated GFR (MDRD) Amer 62 mL/min >60 [facility] Comment on above: GFR Calc Estimated GFR (MDRD) Non-Af Amer 52 mL/min >60 [facility] Comment on above: Non- GFR Calc Platelets bldOrdered By: Dr. Pate on 05-06-2022 Platelets (Bld) [#/Vol] 239 10*3/uL 150-450 [facility] Serum or plasma albumin niels urement (mass/volume)Ordered By: Dr. Pate on 05-06-2022 Albumin [Mass/Vol] 3.4 g/dL 3.2-5.0 [facility] Serum or plasma albumin/glob ulin mass ratioOrdered By: Dr. Pate on 05-06-2022 Albumin/Globulin [Mass ratio] 0.9 {ratio} 0.9-2.4 [facility] Serum or plasma calcium niels urement (mass/volume)Ordered By: Dr. Pate on 05-06-2022 Calcium [Mass/Vol] 8.9 mg/dL 8.5-10.1 [facility] Serum or plasma creatinine m easurement (mass/volume)Ordered By: Dr. Pate on 05-06-2022 Creatinine [Mass/Vol] 1.09 mg/dL 0.55-1.02 [facility] Comment on above: The validity of the calculated GFR & GFRAA in patients over 70 years has not been determined. Clinical correlation is essential. Serum or plasma urea nitroge n measurement (mass/volume)Ordered By: Dr. Pate on 05-06-2022 Urea nitrogen [Mass/Vol] 22 mg/dL 7-18 [facility] Thin prep Papanicolaou smear with manual screeningOrdered By: Dr. Pate on 05-06-2022 Thin prep Papanicolaou smear with manual screening 22 U/L 15-37 [facility] Thin prep Papanicolaou smear with manual screening 7 5-15 [facility] Absolute lymphocyte countOrd ered By: Dr. Pate on 02-04-2022 Lymphocytes Auto (Unsp spec) [#/Vol] 1.02 10*3/uL 0.83-4.51 [facility] Basophil percentageOrdered B y: Dr. Pate on 02-04-2022 Basophils/100 WBC (Bld) 0.5 % 0-1 [facility] Bilirubin [Mass/Vol] 0.50 mg/dL 0.20-1.00 [facility] [place] Comment on above: For patients on eltr ombopag therapy, use of Dimension [place] TBIL is not recommended. Chloride [Moles/Vol] 106 mmol/L 98-107 [facility] [place] Eosinophils/100 WBC (Bld) 0.5 % 0-5 [facility] Glucose [Mass/Vol] 117 mg/dL 74-106 [facility] Comment on above: Fasting Glucose resu lt from 100 to 125 mg/dL suggests IMPAIRED HOMEOSTASIS per A.D.A. criteria. Neutrophils (Bld) [#/Vol] 2.9 10*3/uL 2.0-7.7 [facility] Neutrophils/100 WBC (Bld) 65.2 % 47-70 [facility] Potassium [Moles/Vol] 4.2 mmol/L 3.5-5.1 [facility] Comment on above: Slight Hemolysis, Re sult may be falsely increased. Protein [Mass/Vol] 7.7 g/dL 6.4-8.2 [facility] Sodium [Moles/Vol] 141 mmol/L 136-145 [facility] WBC (Bld) [#/Vol] 4.4 10*3/uL 4.4-11.0 [facility] Blood erythrocytes count (nu mber/volume)Ordered By: Dr. Pate on 02-04-2022 RBC (Bld) [#/Vol] 3.63 10*6/uL 4.2-5.4 [facility] Blood hemoglobin measurement (mass/volume)Ordered By: Dr. Pate on 02-04-2022 Hemoglobin (Bld) [Mass/Vol] 13.2 g/dL 12.0-15.0 [facility] Blood lymphocytes/100 leukoc ytesOrdered By: Dr. Pate on 02-04-2022 Lymphocytes/100 WBC (Bld) 23.3 % 19-41 [facility] Blood monocytes/100 leukocyt esOrdered By: Dr. Pate on 02-04-2022 Monocytes/100 WBC (Bld) 9.8 % 0-10 [facility] Blood platelet mean volumeOr dered By: Dr. Pate on 02-04-2022 Platelet mean volume (Bld) [Entitic vol] 10.4 fL 6.2-12.0 [facility] Determination of erythrocyte mean corpuscular volume (MCV)Ordered By: Dr. Pate on 02-04-2022 MCV (RBC) [Entitic vol] 111.0 fL 81-99 [facility] Hematocrit Auto (Bld) [Volum e fraction]Ordered By: Dr. Pate on 02-04-2022 Hematocrit (Bld) [Volume fraction] 40.3 % 37-47 [facility] Laboratory - Chemistry and C hemistry - challengeOrdered By: Dr. Pate on 02-04-2022 ALP [Catalytic activity/Vol] 82 U/L 45-117 [facility] ALT [Catalytic activity/Vol] 23 U/L 13-56 [facility] CO2 [Moles/Vol] 28.0 mmol/L 21.0-32.0 [facility] Globulin (S) [Mass/Vol] 4.3 g/dL 2.2-4.2 [facility] Urea nitrogen/Creatinine [Mass ratio] 16.0 mg/mg 10-20 [facility] Laboratory - Hematology and Cell countsOrdered By: Dr. Pate on 02-04-2022 Erythrocyte distribution width (RBC) [Entitic vol] 63.5 fL 35.1-43.9 [facility] Erythrocyte distribution width (RBC) [Ratio] 15.6 % 11.6-14.6 [facility] Immature granulocytes/100 WBC (Bld) 0.700 % 0.0-0.9 [facility] Comment on above: IG% - Immature Granu locytes (promyelocytes, myelocytes and metamyelocytes) > 1% indicates that a LEFT SHIFT is Present. MCH (RBC) [Entitic mass] 36.4 pg 27.0-32.0 [facility] Nucleated RBC/100 WBC (Bld) [Ratio] 0 % 0-5 [facility] MCHC Auto (RBC) [Mass/Vol]Or dered By: Dr. Pate on 02-04-2022 MCHC (RBC) [Mass/Vol] 32.8 g/dL 32-36 [facility] No Panel InformationOrdered By: Dr. Pate on 02-04-2022 Estimated Creatinine Clearance Calc 37.77 ml/min [facility] Estimated GFR (MDRD) Amer 64 mL/min >60 [facility] Comment on above: GFR Calc Estimated GFR (MDRD) Non-Af Amer 53 mL/min >60 [facility] Comment on above: Non- GFR Calc Platelets bldOrdered By: Dr. Pate on 02-04-2022 Platelets (Bld) [#/Vol] 300 10*3/uL 150-450 [facility] Serum or plasma albumin niels urement (mass/volume)Ordered By: Dr. Pate on 02-04-2022 Albumin [Mass/Vol] 3.4 g/dL 3.2-5.0 [facility] Serum or plasma albumin/glob ulin mass ratioOrdered By: Dr. Pate on 02-04-2022 Albumin/Globulin [Mass ratio] 0.8 {ratio} 0.9-2.4 [facility] Serum or plasma calcium niels urement (mass/volume)Ordered By: Dr. Pate on 02-04-2022 Calcium [Mass/Vol] 9.4 mg/dL 8.5-10.1 [facility] Serum or plasma creatinine m easurement (mass/volume)Ordered By: Dr. Pate on 02-04-2022 Creatinine [Mass/Vol] 1.06 mg/dL 0.55-1.02 [facility] Comment on above: The validity of the calculated GFR & GFRAA in patients over 70 years has not been determined. Clinical correlation is essential. Serum or plasma urea nitroge n measurement (mass/volume)Ordered By: Dr. Pate on 02-04-2022 Urea nitrogen [Mass/Vol] 17 mg/dL 7-18 [facility] Thin prep Papanicolaou smear with manual screeningOrdered By: Dr. Pate on 02-04-2022 Thin prep Papanicolaou smear with manual screening 25 U/L 15-37 [facility] Comment on above: Slight Hemolysis, Re sult may be falsely increased. Thin prep Papanicolaou smear with manual screening 7 5-15 [facility] Absolute lymphocyte countOrd ered By: Dr. Emery on 01-19-2022 Lymphocytes Auto (Unsp spec) [#/Vol] 1.06 10*3/uL 0.83-4.51 [facility] Basophil percentageOrdered B y: Dr. Emery on 01-19-2022 Basophils/100 WBC (Bld) 0.4 % 0-1 [facility] Bilirubin [Mass/Vol] 0.50 mg/dL 0.20-1.00 [facility] [place] Comment on above: For patients on eltr ombopag therapy, use of Dimension [place] TBIL is not recommended. Chloride [Moles/Vol] 106 mmol/L 98-107 [facility] [place] Eosinophils/100 WBC (Bld) 1.1 % 0-5 [facility] Glucose [Mass/Vol] 122 mg/dL 74-106 [facility] Comment on above: Fasting Glucose resu lt from 100 to 125 mg/dL suggests IMPAIRED HOMEOSTASIS per A.D.A. criteria. Neutrophils (Bld) [#/Vol] 4.0 10*3/uL 2.0-7.7 [facility] Neutrophils/100 WBC (Bld) 70.3 % 47-70 [facility] Potassium [Moles/Vol] 3.8 mmol/L 3.5-5.1 [facility] Comment on above: Slight Hemolysis, Re sult may be falsely increased. Protein [Mass/Vol] 7.3 g/dL 6.4-8.2 [facility] Sodium [Moles/Vol] 140 mmol/L 136-145 [facility] WBC (Bld) [#/Vol] 5.6 10*3/uL 4.4-11.0 [facility] Blood erythrocytes count (nu mber/volume)Ordered By: Dr. Emery on 01-19-2022 RBC (Bld) [#/Vol] 3.58 10*6/uL 4.2-5.4 [facility] Blood hemoglobin measurement (mass/volume)Ordered By: Dr. Emery on 01-19-2022 Hemoglobin (Bld) [Mass/Vol] 13.5 g/dL 12.0-15.0 [facility] Blood lymphocytes/100 leukoc ytesOrdered By: Dr. Emery on 01-19-2022 Lymphocytes/100 WBC (Bld) 18.9 % 19-41 [facility] Blood monocytes/100 leukocyt esOrdered By: Dr. Emery on 01-19-2022 Monocytes/100 WBC (Bld) 8.9 % 0-10 [facility] Blood platelet mean volumeOr dered By: Dr. Emery on 01-19-2022 Platelet mean volume (Bld) [Entitic vol] 10.4 fL 6.2-12.0 [facility] Determination of erythrocyte mean corpuscular volume (MCV)Ordered By: Dr. Emery on 01-19-2022 MCV (RBC) [Entitic vol] 110.1 fL 81-99 [facility] Hematocrit Auto (Bld) [Volum e fraction]Ordered By: Dr. Emery on 01-19-2022 Hematocrit (Bld) [Volume fraction] 39.4 % 37-47 [facility] Laboratory - Chemistry and C hemistry - challengeOrdered By: Dr. Emery on 01-19-2022 ALP [Catalytic activity/Vol] 87 U/L 45-117 [facility] ALT [Catalytic activity/Vol] 21 U/L 13-56 [facility] CO2 [Moles/Vol] 27.0 mmol/L 21.0-32.0 [facility] Globulin (S) [Mass/Vol] 4.0 g/dL 2.2-4.2 [facility] Urea nitrogen/Creatinine [Mass ratio] 16.0 mg/mg 10-20 [facility] Laboratory - Hematology and Cell countsOrdered By: Dr. Emery on 01-19-2022 Erythrocyte distribution width (RBC) [Entitic vol] 61.0 fL 35.1-43.9 [facility] Erythrocyte distribution width (RBC) [Ratio] 15.3 % 11.6-14.6 [facility] Immature granulocytes/100 WBC (Bld) 0.400 % 0.0-0.9 [facility] Comment on above: IG% - Immature Granu locytes (promyelocytes, myelocytes and metamyelocytes) > 1% indicates that a LEFT SHIFT is Present. MCH (RBC) [Entitic mass] 37.7 pg 27.0-32.0 [facility] Nucleated RBC/100 WBC (Bld) [Ratio] 0 % 0-5 [facility] MCHC Auto (RBC) [Mass/Vol]Or dered By: Dr. Emery on 01-19-2022 MCHC (RBC) [Mass/Vol] 34.3 g/dL 32-36 [facility] No Panel InformationOrdered By: Dr. Emery on 01-19-2022 Estimated GFR (MDRD) Amer 64 mL/min >60 [facility] Comment on above: GFR Calc Estimated GFR (MDRD) Non-Af Amer 53 mL/min >60 [facility] Comment on above: Non- GFR Calc Thyroid Stimulating Hormone (TSH) 1.77 uIU/mL 0.358-3.74 [facility] Vitamin D 25-Hydroxy 28.7 ng/mL [facility] [place] Comment on above: Vitamin D 25(OH) Sta tus Range Deficiency <20 ng/mL (50nmol/L) Insufficiency 20 - 30 ng/mL (50 - 75 nmol/L) Sufficiency 30 - 100 ng/mL (75 - 250 nmol/L) Toxicity >100 ng/mL (>250 nmol/L) Platelets bldOrdered By: Dr. Emery on 01-19-2022 Platelets (Bld) [#/Vol] 258 10*3/uL 150-450 [facility] Serum or plasma albumin niels urement (mass/volume)Ordered By: Dr. Emery on 01-19-2022 Albumin [Mass/Vol] 3.3 g/dL 3.2-5.0 [facility] Serum or plasma albumin/glob ulin mass ratioOrdered By: Dr. Emery on 01-19-2022 Albumin/Globulin [Mass ratio] 0.8 {ratio} 0.9-2.4 [facility] Serum or plasma calcium niels urement (mass/volume)Ordered By: Dr. Emery on 01-19-2022 Calcium [Mass/Vol] 9.2 mg/dL 8.5-10.1 [facility] Serum or plasma creatinine m easurement (mass/volume)Ordered By: Dr. Emery on 01-19-2022 Creatinine [Mass/Vol] 1.06 mg/dL 0.55-1.02 [facility] Comment on above: The validity of the calculated GFR & GFRAA in patients over 70 years has not been determined. Clinical correlation is essential. Serum or plasma urea nitroge n measurement (mass/volume)Ordered By: Dr. Emery on 01-19-2022 Urea nitrogen [Mass/Vol] 17 mg/dL 7- [facility] Thin prep Papanicolaou smear with manual screeningOrdered By: Dr. Emery on 01-19-2022 Thin prep Papanicolaou smear with manual screening 24 U/L - [facility] Comment on above: Slight Hemolysis, Re sult may be falsely increased. Thin prep Papanicolaou smear with manual screening 7 5-15 [facility] Absolute lymphocyte counton 11-04-2021 Lymphocytes Auto (Unsp spec) [#/Vol] 1.00 10*3/uL 0.83-4.51 [facility] Work Phone: Basophil percentageon 2021 Basophils/100 WBC (Bld) 0.3 % 0-1 [facility] Work Phone: Bilirubin [Mass/Vol] 0.50 mg/dL 0.20-1.00 [facility] [place] Work Phone: [phone] Comment on above: For patients on eltr ombopag therapy, use of Dimension [place] TBIL is not recommended. Chloride [Moles/Vol] 109 mmol/L 98-107 [facility] [place] Work Phone: [phone] Eosinophils/100 WBC (Bld) 1.0 % 0-5 [facility] Work Phone: Glucose [Mass/Vol] 126 mg/dL 74-106 [facility] Work Phone: Comment on above: Fasting Glucose resu lt greater than or equal to 126 mg/dL suggests DIABETES MELLITUS per A.D.A. criteria. Neutrophils (Bld) [#/Vol] 4.5 10*3/uL 2.0-7.7 [facility] Work Phone: [phone] Neutrophils/100 WBC (Bld) 75.0 % 47-70 [facility] Work Phone: [phone] Potassium [Moles/Vol] 3.7 mmol/L 3.5-5.1 [facility] Work Phone: [phone] Comment on above: Slight Hemolysis, Re sult may be falsely increased. Protein [Mass/Vol] 7.5 g/dL 6.4-8.2 [facility] Work Phone: [phone] Sodium [Moles/Vol] 141 mmol/L 136-145 [facility] Work Phone: [phone] WBC (Bld) [#/Vol] 6.0 10*3/uL 4.4-11.0 [facility] Work Phone: [phone] Blood erythrocytes count (nu mber/volume)on 11-04-2021 RBC (Bld) [#/Vol] 3.60 10*6/uL 4.2-5.4 [facility] Work Phone: Blood hemoglobin measurement (mass/volume)on 11-04-2021 Hemoglobin (Bld) [Mass/Vol] 13.3 g/dL 12.0-15.0 [facility] Work Phone: Blood lymphocytes/100 leukoc yteson 11-04-2021 Lymphocytes/100 WBC (Bld) 16.7 % 19-41 [facility] Work Phone: Blood monocytes/100 leukocyt eson 11-04-2021 Monocytes/100 WBC (Bld) 6.5 % 0-10 [facility] Work Phone: Blood platelet mean volumeon 11-04-2021 Platelet mean volume (Bld) [Entitic vol] 10.5 fL 6.2-12.0 [facility] Work Phone: [phone] Determination of erythrocyte mean corpuscular volume (MCV)on 11-04-2021 MCV (RBC) [Entitic vol] 111.9 fL 81-99 [facility] Work Phone: Hematocrit Auto (Bld) [Volum e fraction]on 11-04-2021 Hematocrit (Bld) [Volume fraction] 40.3 % 37-47 [facility] Work Phone: [phone] Laboratory - Chemistry and C hemistry - challengeon 11-04-2021 ALP [Catalytic activity/Vol] 82 U/L 45-117 [facility] Work Phone: ALT [Catalytic activity/Vol] 22 U/L 13-56 [facility] Work Phone: CO2 [Moles/Vol] 26.0 mmol/L 21.0-32.0 [facility] Work Phone: [phone] Globulin (S) [Mass/Vol] 4.2 g/dL 2.2-4.2 [facility] Work Phone: Urea nitrogen/Creatinine [Mass ratio] 14.0 mg/mg 10-20 [facility] Work Phone: Laboratory - Hematology and Cell countson 11-04-2021 Erythrocyte distribution width (RBC) [Entitic vol] 55.7 fL 35.1-43.9 [facility] Work Phone: Erythrocyte distribution width (RBC) [Ratio] 13.7 % 11.6-14.6 [facility] Work Phone: Immature granulocytes/100 WBC (Bld) 0.500 % 0.0-0.9 [facility] Work Phone: [phone] Comment on above: IG% - Immature Granu locytes (promyelocytes, myelocytes and metamyelocytes) > 1% indicates that a LEFT SHIFT is Present. MCH (RBC) [Entitic mass] 36.9 pg 27.0-32.0 [facility] Work Phone: Nucleated RBC/100 WBC (Bld) [Ratio] 0 % 0-5 [facility] Work Phone: MCHC Auto (RBC) [Mass/Vol]on 11-04-2021 MCHC (RBC) [Mass/Vol] 33.0 g/dL 32-36 [facility] Work Phone: No Panel Informationon 11-04 Estimated Creatinine Clearance Calc 35.12 ml/min [facility] Work Phone: Estimated GFR (MDRD) Amer 59 mL/min >60 [facility] Work Phone: Comment on above: GFR Calc Estimated GFR (MDRD) Non-Af Amer 49 mL/min >60 [facility] Work Phone: Comment on above: Non- GFR Calc Platelets bldon 11-04-2021 Platelets (Bld) [#/Vol] 290 10*3/uL 150-450 [facility] Work Phone: Serum or plasma albumin niels urement (mass/volume)on 11-04-2021 Albumin [Mass/Vol] 3.3 g/dL 3.2-5.0 [facility] Work Phone: Serum or plasma albumin/glob ulin mass ratioon 11-04-2021 Albumin/Globulin [Mass ratio] 0.8 {ratio} 0.9-2.4 [facility] Work Phone: Serum or plasma calcium niels urement (mass/volume)on 11-04-2021 Calcium [Mass/Vol] 9.3 mg/dL 8.5-10.1 [facility] Work Phone: Serum or plasma creatinine m easurement (mass/volume)on 11-04-2021 Creatinine [Mass/Vol] 1.14 mg/dL 0.55-1.02 [facility] Work Phone: Comment on above: The validity of the calculated GFR & GFRAA in patients over 70 years has not been determined. Clinical correlation is essential. Serum or plasma urea nitroge n measurement (mass/volume)on 11-04-2021 Urea nitrogen [Mass/Vol] 16 mg/dL 7-18 [facility] Work Phone: Thin prep Papanicolaou smear with manual screeningon 11-04-2021 Thin prep Papanicolaou smear with manual screening 23 U/L 15-37 [facility] Work Phone: Comment on above: Slight Hemolysis, Re sult may be falsely increased. Thin prep Papanicolaou smear with manual screening 6 5-15 [facility] Work Phone: Blood platelet adequacy dete ction by light microscopyon 11-24-2018 Platelets LM Ql (Bld) ADEQUATE ADEQ [facility] Blood platelet morphology de termination (nominal result)on 11-24-2018 Platelet morphology finding Nom (Bld) LARGE [facility] Laboratory - Hematology and Cell countson 11-24-2018 Anisocytosis Ql (Bld) 2+ [facility] Macrocytes detectionon 11-24 Macrocytes Ql (Bld) 1+ [facility] Target cell detectionon Target cells LM Ql (Bld) RARE [facility] Hypochromatic red blood cell detectionon 10-27-2018 Hypochromia Ql (Bld) 1+ [facility] No Panel Informationon 10-27 Differential Comment SCANNED [facility] Comment on above: DIMORPHIC RBC POPULA TION NOTED Review by pathologiston Pathologist review Jack (Unsp spec) [Interp] Reviewed [facility] Comment on above: Previous reported re sult: Jahaira corral Edited by: JANEOD on 10/28/18:1304 AMENDED REPORT 10/28/18 1304 PATH REV previously reported as: Jahaira corral Absolute reticulocyte counto n 10-13-2018 Reticulocytes (Bld) [#/Vol] 0.00 10*3/uL 0-5 [facility] Laboratory - Hematology and Cell countson 09-29-2018 Erythrocyte distribution width (RBC) [Ratio] 24.6 % High 11.6-14.6 [facility] No Panel Informationon 09-29 Red Cell Distribution Width Diff 73.7 fl High 35.1-43.9 [facility] Total cell counton 9 Cells counted [employer] (Bld/Tiss) [#] Not Reportable [facility] RBC morphologyon 09-21-2018 RBC morphology finding Nom (Bld) N CHROM NORMAL NORM C&C [facility] [employer] mix RAST testo n 06-27-2018 LDH [Catalytic activity/Vol] 283 U/L High 84-246 [facility] Comment on above: Slight Hemolysis, Re sult may be falsely increased. Iron measurement (mass/mass) on 06-27-2018 Iron (Unsp spec) [Mass/Mass] 54 ug/dL 50-170 [facility] Comment on above: Slight Hemolysis, Re sult may be falsely increased. JAK2 V617F mutation detectio non 06-27-2018 JAK2 gene p.[id number] [employer] Ql (Bld/Tiss) Comment High . [facility] Comment on above: Result: POSITIVE for the detection of the V617F mutation.Interpretation: The assay detected the presence of a G toT nucleotide change encoding the V617F mutation withinJAK2. Interpretation of this result should be made in thecontext of other clinical, morphologic, and cytogeneticfindings. No Panel Informationon 06-27 JAK2 Mutation Comment . [facility] Comment on above: JAK2 is a cytoplasmi c tyrosine kinase with a ferrell role insignal transduction from multiple hematopoietic growthfactor receptors. A point mutation within exon 14 of theJAK2 gene ([id number]) encoding a valine to phenylalaninesubstitution at position [...] specific to JAK2 wild type (WT) and [id number] V617F. The [employer] Absolute Quantitation softwarewill compare the patient specimen valuse to the standardcurves and generate percent values for wild type andmutant type. In vitro studies have indicated that thisassay has an analytical sensitivity of 1%.References:Matthew EJ, Jean LM, Zachary PJ, et al. Acquiredmutation of the tyrosine kinase JAK2 in humanmyeloproliferative disorders. Lancet. 2005 Jun 07;365(6030):5974-4380. [place] Santiago, Guido Haynes, Mary Rosas JP. Aunique clonal JAK2 mutation leading to constitutivesignaling causes polycythaemia vera. Nature. 2005 Jul 17;835(7342):6306-3654.Nicolas R, Bolivar F, Jloynn , et al. A [id number]-[id number] mutation of JAK2 in myeloproliferative disorders.N Engl J Med. 2005 Jul 17; 352(12):0514-1510. Miscellaneous Test See comment [facility] Comment on above: TEST RESULT UNITS [...] was developed and its performancecharacteristics determined by [employer]). It has not been cleared orapproved by the U.S. Food and Drug Administration. The DNAprobe vendor for this study was [employer] ([employer]).Specimen Type Comment: BLOODDirector Review: Comment: Travis Chavez, PhD, [facility] .Specimen Type Comment: BLOODCells Counted 5Cells Analyzed [...] chromosomal changes occur.Director Review: Comment:AMIE FERREIRA, PHD, [facility] TESTING PERFORMED AT [facility]. ORIGINAL REPORT ON FILE IN LAB CONTAINS ADDITIONAL TEST SITE INFORMATION. Total Iron Binding Capacity 289 ug/dL 250-450 [facility] Serum or plasma erythropoiet in (EPO) measurement (units/volume)on 06-27-2018 Erythropoietin (EPO) Qn 4.2 mIU/mL 2.6-18.5 [facility] Comment on above: [employer] Uni[employer] el DxI 800 Immunoassay SystemValues obtained with different assay methods or kits cannotbe used interchangeably. Results cannot be interpreted asabsolute evidence of the presence or absence of malignantdisease.Performed at: [facility] [id number] [employer] [facility], [place], [place] [id number] Director: Mj Coronado MD, Phone: [phone] at: [facility] [id number] [facility] [place], [place] [id number] Director: Mj Coronado MD, Phone: [phone] at: [address] [id number] Director: Ruddy Parks PhD, Phone: [phone] Serum or plasma ferritin hayden surement (mass/volume)on 06-27-2018 Ferritin [Mass/Vol] 561 ng/mL High 8-252 [facility] Serum or plasma iron saturat ion measurement (mass fraction)on 06-27-2018 Iron saturation [Mass fraction] 18.7 % 15.0-55.0 [facility] Serum or plasma uric acid me asurement (mass/volume)on 06-27-2018 Urate [Mass/Vol] 4.2 mg/dL 2.6-6.0 [facility] Comment on above: The drugs N-Acetylcy steine and Metamizole may falsely depress this assay. Thin prep Papanicolaou smear with manual screeningon 06-27-2018 Thin prep Papanicolaou smear with manual screening 283 U/L 84-246 [facility] Comment on above: Slight Hemolysis, Re sult may be falsely increased. Vital Signs Date Time Vital Sign Value Performing Clinician Faci lity 11-28-2024 08:58-0400 Diastolic blood pressure 56 mm[Hg] Dr. Dago Emery MD Work Phone: [facility] 11-28-2024 08:58-0400 Systolic blood pressure 119 mm[Hg] Dr. Dago Emery MD Work Phone: [facility] 11-28-2024 08:04-0400 Body temperature 98.1 [degF] Dr. Dago Emery MD Work Phone: [facility] 11-28-2024 08:04-0400 Heart rate 69 /min Dr. Dago Emery MD Work Phone: [facility] 11-28-2024 08:04-0400 Respiratory rate 16 /min Dr. Dago Emery MD Work Phone: [facility] 11-28-2024 08:04-0400 SaO2% (BldA) [Mass fraction] 93 % Dr. Dago Emery MD Work Phone: [facility] 11-22-2024 14:50-0400 Body height 165.[address] Dago Emery MD Work Phone: 7(764)992-225534 [place] [address] 11-22-2024 14:50-0400 Body weight 85.[address] Dago Emery MD Work Phone: 4(242)560-068037 [place] [address] 11-21-2024 14:00-0400 Body mass index (BMI) [Ratio] 31.4 kg/m2 Dr. Dago Emery MD Work Phone: 1(770)293-144837 [place] [address] 11-01-2024 16:35-0400 Diastolic blood pressure 71 mm[Hg] Dr. Dago Emery MD Work Phone: 6(812)546-786137 [place] [address] 11-01-2024 16:35-0400 Heart rate 64 /min Dr. Dago Emery MD Work Phone: 7(402)689-602337 [place] [address] 11-01-2024 16:35-0400 Respiratory rate 16 /min Dr. Dago Emery MD Work Phone: 2(243)752-924037 [place] [address] 11-01-2024 16:35-0400 SaO2% (BldA) [Mass fraction] 96 % Dr. Dago Emery MD Work Phone: 4(197)655-566237 [place] [address] 11-01-2024 16:35-0400 Systolic blood pressure 163 mm[Hg] Dr. Dago Emery MD Work Phone: 2(387)754-992537 [place] [address] 11-01-2024 16:20-0400 Body temperature 98.5 [degF] Dr. Dago Emery MD Work Phone: 0(302)121-957537 [place] [address] 11-01-2024 15:07-0400 Body height 165.[address] Dago Emery MD Work Phone: 9(242)255-726537 [place] [address] 11-01-2024 15:07-0400 Body mass index (BMI) [Ratio] 32.5 kg/m2 Dr. Dago Emery MD Work Phone: 0(076)079-527637 [place] [address] 11-01-2024 15:07-0400 Body weight 88.[address] Dago Emery MD Work Phone: 9(450)973-035137 [place] [address] 11-01-2024 14:26-0400 Body mass index (BMI) [Ratio] 32.8 kg/m2 Dr. Dago Emery MD Work Phone: [facility] 11-01-2024 14:26-0400 Body temperature 97.7 [degF] Dr. Dago Emery MD Work Phone: [facility] 11-01-2024 14:26-0400 Body weight 89.[address] Dago Emery MD Work Phone: [facility] 11-01-2024 14:26-0400 Diastolic blood pressure 68 mm[Hg] Dr. Dago Emery MD Work Phone: [facility] 11-01-2024 14:26-0400 Heart rate 67 /min Dr. Dago Emery MD Work Phone: 3(666)568-213134 [place] [address] 11-01-2024 14:26-0400 Respiratory rate 19 /min Dr. Dago Emery MD Work Phone: 9(707)131-016434 [place] [address] 11-01-2024 14:26-0400 SaO2% (BldA) [Mass fraction] 96 % Dr. Dago Emery MD Work Phone: [facility] 11-01-2024 14:26-0400 Systolic blood pressure 153 mm[Hg] Dr. Dago Emery MD Work Phone: [facility] 10-21-2024 13:13-0400 Body temperature 98.3 [degF] Dr. Dago Emery MD Work Phone: [facility] 10-21-2024 13:13-0400 Diastolic blood pressure 67 mm[Hg] Dr. Dago Emery MD Work Phone: [facility] 10-21-2024 13:13-0400 Heart rate 62 /min Dr. Dago Emery MD Work Phone: [facility] 10-21-2024 13:13-0400 Respiratory rate 18 /min Dr. Dago Emery MD Work Phone: [facility] 10-21-2024 13:13-0400 SaO2% (BldA) [Mass fraction] 95 % Dr. Dago Emery MD Work Phone: [facility] 10-21-2024 13:13-0400 Systolic blood pressure 129 mm[Hg] Dr. Dago Emery MD Work Phone: 3(366)207-103634 [place] [address] 10-16-2024 22:13-0400 Inhaled oxygen flow rate 2 L/min Dr. Dago Emery MD Work Phone: 0(177)895-929237 [place] [address] 10-16-2024 20:13-0400 Body height 165.[address] Dago Emery MD Work Phone: 8(296)031-543737 [place] [address] 10-16-2024 20:13-0400 Body mass index (BMI) [Ratio] 31.1 kg/m2 Dr. Dago Emery MD Work Phone: 2(846)395-218837 [place] [address] 10-16-2024 20:13-0400 Body weight [address] Dago Emery MD Work Phone: 3(789)343-166637 [place] [address] 10-11-2024 15:05-0400 Body height 165.[address] Dago Emery MD Work Phone: 8(896)700-612037 [place] [address] 10-11-2024 15:05-0400 Body temperature 98.2 [degF] Dr. Dago Emery MD Work Phone: 1(715)273-454137 [place] [address] 10-11-2024 15:05-0400 Diastolic blood pressure 73 mm[Hg] Dr. Dago Emery MD Work Phone: 5(230)961-531437 [place] [address] 10-11-2024 15:05-0400 Heart rate 52 /min Dr. Dago Emery MD Work Phone: 5(772)672-950734 [place] [address] 10-11-2024 15:05-0400 Respiratory rate 16 /min Dr. Dago Emery MD Work Phone: 5(460)623-785337 [place] [address] 10-11-2024 15:05-0400 SaO2% (BldA) [Mass fraction] 98 % Dr. Dago Emery MD Work Phone: 6(948)829-062634 [place] [address] 10-11-2024 15:05-0400 Systolic blood pressure 169 mm[Hg] Dr. Dago Emery MD Work Phone: 4(018)218-597005 [address] 09-20-2024 14:30-0400 Body height 165.[address] Dago Emery MD Work Phone: 8(842)921-797137 [place] [address] 09-20-2024 14:30-0400 Body mass index (BMI) [Ratio] 32.4 kg/m2 Dr. Dago Emery MD Work Phone: 6(714)498-786837 [place] [address] 09-20-2024 14:30-0400 Body weight 88.[address] Dago Emery MD Work Phone: 4(739)373-063337 [place] [address] 09-20-2024 14:30-0400 Diastolic blood pressure 73 mm[Hg] Dr. Dago Emery MD Work Phone: 1(435)140-335537 [place] [address] 09-20-2024 14:30-0400 Heart rate 56 /min Dr. Dago Emery MD Work Phone: 7(855)962-617137 [place] [address] 09-20-2024 14:30-0400 Respiratory rate 18 /min Dr. Dago Emery MD Work Phone: 5(540)218-515337 [place] [address] 09-20-2024 14:30-0400 SaO2% (BldA) [Mass fraction] 95 % Dr. Dago Emery MD Work Phone: 7(772)667-226537 [place] [address] 09-20-2024 14:30-0400 Systolic blood pressure 124 mm[Hg] Dr. Dago Emery MD Work Phone: 2(651)700-031837 [place] [address] 07-10-2024 13:45-0400 Body height 165.[address] Dago Emery MD Work Phone: 2(388)819-638537 [place] [address] 07-10-2024 13:45-0400 Body temperature 97.8 [degF] Dr. Dago Emery MD Work Phone: 6(736)958-152937 [place] [address] 07-10-2024 13:45-0400 Diastolic blood pressure 66 mm[Hg] Dr. Dago Emery MD Work Phone: 0(312)955-773637 [place] [address] 07-10-2024 13:45-0400 Heart rate 46 /min Dr. Dago Emery MD Work Phone: 7(878)139-376337 [place] [address] 07-10-2024 13:45-0400 Respiratory rate 16 /min Dr. Dago Emery MD Work Phone: [facility] 07-10-2024 13:45-0400 SaO2% (BldA) [Mass fraction] 98 % Dr. Dago Emery MD Work Phone: [facility] 07-10-2024 13:45-0400 Systolic blood pressure 104 mm[Hg] Dr. Dago Emery MD Work Phone: [facility] 02-22-2024 14:10-0500 Body weight 88.[address] Dago Emery MD Work Phone: [facility] 11-04-2022 14:40-0400 Body height 165.[address] Dago Emery Work Phone: [facility] 11-04-2022 14:40-0400 Body mass index (BMI) [Ratio] 34.2 kg/m2 Dr. Dago Emery Work Phone: [facility] 11-04-2022 14:40-0400 Body temperature 98 [degF] Dr. Dago Emery Work Phone: [facility] 11-04-2022 14:40-0400 Body weight 93.[address] Dago Emery Work Phone: [facility] 11-04-2022 14:40-0400 Diastolic blood pressure 74 mm[Hg] Dr. Dago Emery Work Phone: [facility] 11-04-2022 14:40-0400 Heart rate 51 /min Dr. Dago Emery Work Phone: [facility] 11-04-2022 14:40-0400 Respiratory rate 16 /min Dr. Dago Emery Work Phone: [facility] 11-04-2022 14:40-0400 SaO2% (BldA) [Mass fraction] 98 % Dr. Dago Emery Work Phone: [facility] 11-04-2022 14:40-0400 Systolic blood pressure 140 mm[Hg] Dr. Dago Emery Work Phone: [facility] 10-14-2022 12:50-0400 Body temperature 97.6 [degF] Dr. Dago Emery Work Phone: 9(497)529-093105 [address] 10-14-2022 12:50-0400 Diastolic blood pressure 47 mm[Hg] Dr. Dago Emery Work Phone: 7(040)593-501237 [place] [address] 10-14-2022 12:50-0400 Heart rate 70 /min Dr. Dago Emery Work Phone: 4(827)875-466937 [place] [address] 10-14-2022 12:50-0400 Respiratory rate 18 /min Dr. Dago Emery Work Phone: 0(413)627-664437 [place] [address] 10-14-2022 12:50-0400 SaO2% (BldA) [Mass fraction] 94 % Dr. Dago Emery Work Phone: 8(923)187-438837 [place] [address] 10-14-2022 12:50-0400 Systolic blood pressure 141 mm[Hg] Dr. Dago Emery Work Phone: 7(129)350-456337 [place] [address] 10-13-2022 09:00-0400 Body mass index (BMI) [Ratio] 34.4 kg/m2 Dr. Dago Emery Work Phone: 6(845)386-827137 [place] [address] 10-13-2022 09:00-0400 Body weight 93.[address] Dago Emery Work Phone: 4(374)508-242837 [place] [address] 08-05-2022 13:49-0400 Body height 165.[address] Dago Emery Work Phone: 1(331)316-439337 [place] [address] 08-05-2022 13:49-0400 Body mass index (BMI) [Ratio] 34.2 kg/m2 Dr. Dago Emery Work Phone: 6(627)357-922537 [place] [address] 08-05-2022 13:49-0400 Body temperature 98.3 [degF] Dr. Dago Emery Work Phone: 5(041)353-288437 [place] [address] 08-05-2022 13:49-0400 Body weight 93.[address] Dago Emery Work Phone: [facility] 08-05-2022 13:49-0400 Diastolic blood pressure 83 mm[Hg] Dr. Dago Emery Work Phone: 1(341)510-195934 [place] [address] 08-05-2022 13:49-0400 Heart rate 45 /min Dr. Dago Emery Work Phone: 1(557)562-858034 [place] [address] 08-05-2022 13:49-0400 Respiratory rate 18 /min Dr. Dago Emery Work Phone: 3(742)482-811837 [place] [address] 08-05-2022 13:49-0400 SaO2% (BldA) [Mass fraction] 99 % Dr. Dago Emery Work Phone: 1(130)080-634834 [place] [address] 08-05-2022 13:49-0400 Systolic blood pressure 137 mm[Hg] Dr. Dago Emery Work Phone: 2(001)885-733534 [place] [address] 05-06-2022 14:19-0500 Body height 165.[address] Dago Emery Work Phone: 5(214)196-952137 [place] [address] 05-06-2022 14:19-0500 Body mass index (BMI) [Ratio] 35.5 kg/m2 Dr. Dago Emery Work Phone: 1(836)130-507334 [place] [address] 05-06-2022 14:19-0500 Body temperature 98.3 [degF] Dr. Dago Emery Work Phone: 1(662)448-678037 [place] [address] 05-06-2022 14:19-0500 Body weight 96.[address] Dago Emery Work Phone: 8(254)456-260534 [place] [address] 05-06-2022 14:19-0500 Diastolic blood pressure 72 mm[Hg] Dr. Dago Emery Work Phone: 8(860)015-989334 [place] [address] 05-06-2022 14:19-0500 Heart rate 46 /min Dr. Dago Emery Work Phone: 8(337)121-127534 [place] [address] 05-06-2022 14:19-0500 Respiratory rate 18 /min Dr. Dago Emery Work Phone: 3(911)632-972234 [place] [address] 05-06-2022 14:19-0500 SaO2% (BldA) [Mass fraction] 98 % Dr. Dago Emery Work Phone: 8(600)660-004934 [place] [address] 05-06-2022 14:19-0500 Systolic blood pressure 121 mm[Hg] Dr. Dago Emery Work Phone: 3(518)142-129337 [place] [address] 04-12-2022 08:38-0500 Diastolic blood pressure 94 mm[Hg] Dr. Dago Emery Work Phone: 3(862)167-446837 [place] [address] 04-12-2022 08:38-0500 Heart rate 60 /min Dr. Dago Emery Work Phone: 9(656)879-387037 [place] [address] 04-12-2022 08:38-0500 Respiratory rate 16 /min Dr. Dago Emery Work Phone: 4(074)831-437037 [place] [address] 04-12-2022 08:38-0500 SaO2% (BldA) [Mass fraction] 96 % Dr. Dago Emery Work Phone: 3(106)388-554537 [place] [address] 04-12-2022 08:38-0500 Systolic blood pressure 178 mm[Hg] Dr. Dago Emery Work Phone: 2(400)623-506637 [place] [address] 04-12-2022 08:33-0500 Body height 165.[address] Dago Emery Work Phone: 9(826)801-188737 [place] [address] 04-12-2022 08:33-0500 Body mass index (BMI) [Ratio] 36.3 kg/m2 Dr. Dago Emery Work Phone: 1(933)782-278537 [place] [address] 04-12-2022 08:33-0500 Body temperature 98.5 [degF] Dr. Dago Emery Work Phone: 2(710)811-804937 [place] [address] 04-12-2022 08:33-0500 Body weight 99.[address] Dago Emery Work Phone: 7(973)928-576237 [place] [address] 02-04-2022 14:20-0500 Body mass index (BMI) [Ratio] 34.4 kg/m2 Dr. Dago Emery Work Phone: 0(187)159-189337 [place] [address] 02-04-2022 14:20-0500 Body temperature 97.8 [degF] Dr. Dago Emery Work Phone: [facility] 02-04-2022 14:20-0500 Body weight 93.[address] Dago Emery Work Phone: [facility] 02-04-2022 14:20-0500 Diastolic blood pressure 79 mm[Hg] Dr. Dago Emery Work Phone: [facility] 02-04-2022 14:20-0500 Heart rate 51 /min Dr. Dago Emery Work Phone: [facility] 02-04-2022 14:20-0500 Respiratory rate 16 /min Dr. Dago Emery Work Phone: [facility] 02-04-2022 14:20-0500 SaO2% (BldA) [Mass fraction] 97 % Dr. Dago Emery Work Phone: [facility] 02-04-2022 14:20-0500 Systolic blood pressure 132 mm[Hg] Dr. Dago Emery Work Phone: [facility] 11-04-2021 13:59-0400 Body height 165.[address] Dago Emery Work Phone: [facility] Work Phone: 11-04-2021 13:59-0400 Body mass index (BMI) [Ratio] 34.4 kg/m2 Dr. Dago Emery Work Phone: [facility] Work Phone: 11-04-2021 13:59-0400 Body temperature 97.4 [degF] Dr. Dago Emery Work Phone: [facility] Work Phone: 11-04-2021 13:59-0400 Body weight [address] Dago Emery Work Phone: [facility] Work Phone: 11-04-2021 13:59-0400 Diastolic blood pressure 80 mm[Hg] Dr. Daog Emery Work Phone: [facility] Work Phone: 11-04-2021 13:59-0400 Heart rate 51 /min Dr. Dago Emery Work Phone: [facility] Work Phone: 11-04-2021 13:59-0400 Respiratory rate 16 /min Dr. Dago Emery Work Phone: [facility] Work Phone: 11-04-2021 13:59-0400 SaO2% (BldA) [Mass fraction] 97 % Dr. Dago Emery Work Phone: [facility] Work Phone: 11-04-2021 13:59-0400 Systolic blood pressure 130 mm[Hg] Dr. Dago Emery Work Phone: [facility] Work Phone: 04-25-2020 14:46-0500 Body mass index (BMI) [Ratio] 37.8 kg/m2 Dr. Dago Emery Work Phone: [facility] 04-25-2020 14:46-0500 Body temperature 98 [degF] Dr. Dago Emery Work Phone: [facility] 04-25-2020 14:46-0500 Body weight 99.[address] Dago Emery Work Phone: [facility] 04-25-2020 14:46-0500 Diastolic blood pressure 87 mm[Hg] Dr. Dago Emery Work Phone: [facility] 04-25-2020 14:46-0500 Heart rate 54 /min Dr. Dago Emery Work Phone: [facility] 04-25-2020 14:46-0500 Respiratory rate 17 /min Dr. Dago Emery Work Phone: [facility] 04-25-2020 14:46-0500 SaO2% (BldA) [Mass fraction] 97 % Dr. Dago Emery Work Phone: [facility] 04-25-2020 14:46-0500 Systolic blood pressure 155 mm[Hg] Dr. Dago Emery Work Phone: [facility] Encounters Encounter Date Encounter Type Care Provider Facility Start: 11-01-2024 Non-patient / Non-visit Pio Diana cristopher DO -[facility] Start: 11-01-2024 End: 11-01-2024 Admission to same day surgery center Pio Webb DO -Endoscopy Work Phone: Start: 11-01-2024 End: 11-01-[address] Dago Emery MD Work Phone: -Endoscopy Start: 10-31-2024 Non-patient / Non-visit Pio Diana cristopher [facility] Start: 10-21-2024 ambulatory Dago Emery Facility:[facility] Start: 10-21-2024 End: 11-28-2024 Evaluation and management of inpatient Dr. Dago Emery MD -Transitional Care Unit Start: 10-20-2024 Non-patient / Non-visit Dr. Sofia giang MD -[facility] Work Phone: Start: 10-18-2024 ambulatory Saulo Reyes ility:[facility] Start: 10-18-2024 End: 10-21-2024 Evaluation and management of inpatient Dr. Geo Rodriguez MD -Medical Surgical 3 Work Phone: Start: 10-18-2024 Non-patient / Non-visit Dr. Joselin Valente MD -[facility] Work Phone: Start: 10-17-2024 Non-patient / Non-visit Dr. Joselin Valente MD -[facility] Work Phone: Start: 10-16-2024 Non-patient / Non-visit Dr. Og UGALDE [facility] Work Phone: Start: 10-16-2024 ambulatory Saulo Bullock Fac ility:[facility] Start: 10-11-[address] Cira Pate MD -[facility] Start: 10-11-2024 End: 10-11-2024 Patient encounter procedure Carolyn HAINES -[facility] Work Phone: Start: 10-11-2024 End: 10-11-[address] Dago Emery MD Work Phone: [facility] Start: 09-20-2024 End: 09-20-[address] Omero Armas MD -[facility] Work Phone: Start: 09-20-2024 End: 09-20-[address] Omero Armas MD [facility] Start: 09-20-2024 End: 09-20-[address] Dago Emery MD Work Phone: [facility] Start: 08-08-2024 Encounter for other preprocedural examination [facility] Start: 08-01-2024 End: 08-01-2024 Non-patient / Non-visit Dr. Omero Armas MD -[facility] Work Phone: Start: 08-01-2024 End: 08-01-[address] Dago Emery MD Work Phone: [facility] Work Phone: Start: 08-01-2024 End: 08-01-[address] Dago Emery MD -Pulmonary Services/Neurology Work Phone: Start: 07-31-2024 End: 08-01-[address] Dago Emery MD Work Phone: [facility] Work Phone: Start: 07-31-2024 End: 07-31-[address] Dago Emery MD -[facility] Start: 07-31-2024 End: 07-31-2024 ambulatory Dago Emery Facility:[facility] Start: 07-10-[address] Cira Pate MD -[facility] Start: 07-10-2024 End: 07-10-2024 Patient encounter procedure Carolyn HAINES -[facility] Work Phone: Start: 07-10-2024 End: 07-10-2024 ambulatory Dago Emery Facility:[facility] Start: 02-22-2024 End: 02-22-2024 ambulatory [facility] Facility:[facility] Start: 01-31-2024 End: 01-31-2024 [facility] Start: 01-25-2023 End: 01-25-[address] Dago Emery Work Phone: [facility] Work Phone: Start: 01-25-2023 End: 01-25-[address] Dago Emery Work Phone: [facility]-Laboratory, Phy Office 3rd Ncr Start: 11-04-[address] Dago hays Work Phone: [facility] Start: 11-04-2022 End: 11-04-[address] Dago Emery Work Phone: [facility] Work Phone: Start: 09-25-2022 End: 10-14-2022 Evaluation and management of inpatient Dr. Dago Emery Work Phone: [facility]-Transitional Care Unit Start: 09-04-2022 End: 09-04-[address] Dago Emery Work Phone: [facility] Work Phone: Start: 09-04-2022 End: 09-04-[address] Dago Emery Work Phone: [facility] Start: 08-05-2022 End: 08-05-[address] Dago Emery Work Phone: [facility] Start: 08-05-[address] Dago hays Work Phone: [facility] Start: 07-20-2022 End: 07-20-[address] Dago Emery Work Phone: [facility] Work Phone: Start: 07-20-2022 End: 07-20-[address] [facility] Start: 05-06-[address] Dgao hays Work Phone: [facility] Start: 05-06-2022 End: 05-06-[address] Dago Emery Work Phone: [facility] Start: 04-12-2022 End: 04-12-2022 Emergency department patient visit Dr. Dago Emery Work Phone: [facility]-Emergency Department Start: 02-04-[address] Dago hays Work Phone: [facility] Start: 02-04-2022 End: 02-04-[address] Dago Emery Work Phone: [facility] Start: 01-19-2022 End: 01-19-[address] Dago Emery Work Phone: [facility] Work Phone: Start: 01-19-2022 End: 01-19-[address] [facility] Start: 11-04-[address] Dago hays Work Phone: [facility] Start: 11-04-2021 End: 11-04-[address] Dago Emery Work Phone: [facility] Procedures Date Procedure Procedure Detail Performing Clinician Start: 11-24-[address] Dgao hays MD Work Phone: Start: 11-13-[address] Dago Emery MD Work Phone: Start: 11-11-[address] Dago Emery MD Work Phone: Start: 11-09-[address] Dago Emery MD Work Phone: Start: 11-03-2024 X-ray of ankle, three or more views Dr. Dago Emery MD Work Phone: Start: 11-01-2024 Esophagogastroduodenoscopy Dr. Dago Emery MD Work Phone: Start: 10-31-2024 Measurement of occult blood in stool specimen using immunoassay Dr. Dago Emery MD Work Phone: Start: 10-31-2024 X-ray of knee, one or two views Dr. Dago Emery MD Work Phone: Start: 10-31-2024 X-ray of ankle, three or more views Dr. Dago Emery MD Work Phone: Start: 10-27-[address] Dago hays MD Work Phone: Start: 10-21-[address] Dago hays MD Work Phone: Start: 10-17-2024 MRI of lower extremity Dr. Dago Emery MD Work Phone: Start: 10-17-2024 X-ray of ankle, three or more views Dr. Dago Emery MD Work Phone: Start: 10-16-2024 X-ray of knee, one or two views Dr. Dago Emery MD Work Phone: Start: 10-16-[address] Dago Emery MD Work Phone: Start: 10-16-2024 X-ray of knee, one or two views Dr. Dago Emery MD Work Phone: Start: 10-16-2024 Total replacement of left knee joint Dr. Dago Emery MD Work Phone: Start: 10-11-[address] Dago hays MD Work Phone: Start: 10-11-2024 Methicillin resistant Staphylococcus aureus screening test Dr. Dago Emery MD Work Phone: Start: 08-01-2024 MRI of lower extremity Dr. Dago Emery MD Work Phone: Start: 07-31-2024 Vitamin D, 25-hydroxy measurement Dr. Jorge Emery MD Work Phone: Comment on above: Vitamin D StatusDeficiency: <20 ng/mL (5 0nmol/L)Insufficiency: 20-30 ng/mL (50-75 nmol/L)Sufficiency: 30-100 ng/mL (75-250 nmol/L)Toxicity: >100 ng/mL (>250 nmol/L) Start: 07-31-2024 Methicillin resistant Staphylococcus aureus screening test Dr. Dago Emery MD Work Phone: Start: 07-10-[address] Dago hays MD Work Phone: Start: 02-22-2024 Measurement of renal function Dr. Dago michelle MD Work Phone: Comment on above: GFR Calc Start: 08-05-2023 Vitamin D, 25-hydroxy measurement Dr. Jorge Emery MD Work Phone: Comment on above: Vitamin D 25(OH) Status Range Deficiency <20 ng/mL (50nmol/L) Insufficiency 20 - 30 ng/mL (50 - 75 nmol/L) Sufficiency 30 - 100 ng/mL (75 - 250 nmol/L) Toxicity >100 ng/mL (>250 nmol/L) Start: 09-04-2022 MRI of lower extremity Dr. Dago Emery Work Phone: Start: 04-12-2022 Radiologic examination of knee Dr. Dago hays Work Phone: Plan of Treatment Date Care Activity Detail Author Start: 11-28-[address] [facility] Start: 11-28-2024 Patient discharge [facility] Start: 11-21-2024 [facility] Start: 11-17-2024 Developing a treatment plan [facility] Start: 11-14-2024 Speech therapy management [facility] Start: 11-03-2024 Elevation of affected extremity [facility] Start: 11-01-2024 Endoscopy upper small intestine w/biopsy SMALL BOWEL ENDOSCOPY/BIOPSY [facility] Start: 11-01-2024 Patient discharge [facility] Start: 10-31-2024 Speech therapy assessment [facility] Start: 10-31-2024 Referral to gastroenterology service [facility] Start: 10-30-2024 Verification routine [facility] Start: 10-25-2024 [facility] Start: 10-22-2024 Developing a treatment plan [facility] Start: 10-21-2024 Chemotherapy care management [facility] Start: 10-21-2024 Wound care [facility] Start: 10-21-2024 Recommendation to continue with treatment [facility] Start: 10-21-2024 Admission procedure [facility] Start: 10-21-2024 Introduction of urinary catheter [facility] Start: 10-21-2024 Measuring intake and output [facility] Start: 10-21-2024 Patient referral to dietitian [facility] Start: 10-21-2024 Referral to occupational therapist [facility] Start: 10-21-2024 Referral to service [facility] Start: 10-21-[address] [facility] Start: 10-21-2024 End: 10-21-2024 [facility] Start: 10-21-2024 Patient discharge [facility] Start: 10-18-2024 Admission procedure [facility] Start: 10-18-2024 Care regimes management [facility] Start: 10-17-2024 [facility] Start: 10-16-2024 Application of intermittent pneumatic compression device [facility] Start: 10-16-2024 Following clinical pathway protocol [facility] Start: 10-16-2024 Provision of overbed trapeze [facility] Start: 10-16-2024 Ambulation therapy management [facility] Start: 10-16-2024 Assessment of risk of venous thromboembolism [facility] Start: 10-16-2024 Catheterization of vein [facility] Start: 10-16-2024 Exercises [facility] Start: 10-16-[address] [facility] Start: 10-16-2024 Procedure discontinued [facility] Start: 10-16-2024 Recommendation to continue with treatment [facility] Start: 10-16-2024 Referral to occupational therapist [facility] Start: 10-16-2024 Referral to service [facility] Start: 10-16-[address] [facility] Start: 10-16-2024 End: 10-16-2024 [facility] Start: 10-16-2024 Application of device [facility] Start: 10-16-2024 Application of elastic bandage [facility] Start: 10-16-2024 Introduction of urinary catheter [facility] Start: 10-16-2024 Measuring intake and output [facility] Start: 10-16-2024 Patient education [facility] Start: 10-16-2024 Provision of activity privileges [facility] Start: 10-16-2024 Wound care [facility] Start: 10-16-2024 Admission procedure [facility] Start: 10-16-2024 Consultation [facility] Start: 10-11-2024 CBC W Auto Differential panel - Blood [facility] Start: 10-11-2024 [facility] Start: 07-31-2024 Electrocardiographic procedure [facility] Start: 10-14-2022 Patient discharge [facility] Start: 10-13-[address] [facility] Start: 10-09-2022 Referral to service [facility] Start: 10-09-2022 [facility] Start: 10-04-2022 [facility] Start: 10-04-2022 [facility] Start: 09-26-2022 Developing a treatment plan [facility] Start: 09-26-[address] [facility] Start: 09-26-2022 Application of device [facility] Start: 09-25-2022 Wound care [facility] Start: 09-25-2022 Admission procedure [facility] Start: 09-25-2022 Measuring intake and output [facility] Start: 09-25-2022 Patient referral to dietitian [facility] Start: 09-25-2022 Referral to occupational therapist [facility] Start: 09-25-2022 Referral to service [facility] Start: 09-25-[address] [facility] Start: 09-25-2022 End: 09-25-2022 [facility] Start: 07-21-2018 [facility] Anion gap in Serum or Plasma [facility] Anion gap in Serum or Plasma [facility] Anion gap in Serum or Plasma [facility] Anion gap in Serum or Plasma [facility] Anion gap in Serum or Plasma [facility] Basic metabolic 2008 panel with ionized calcium - Serum or Plasma [facility] BUN/Creatinine ratio [facility] BUN/Creatinine ratio [facility] BUN/Creatinine ratio [facility] BUN/Creatinine ratio [facility] BUN/Creatinine ratio [facility] Calcium [Mass/volume ] in Serum or Plasma [facility] Calcium [Mass/volume ] in Serum or Plasma [facility] Calcium [Mass/volume ] in Serum or Plasma [facility] Calcium [Mass/volume ] in Serum or Plasma [facility] Calcium [Mass/volume ] in Serum or Plasma [facility] Carbon dioxide, tota l [Moles/volume] in Central venous blood [facility] Carbon dioxide, tota l [Moles/volume] in Central venous blood [facility] Carbon dioxide, tota l [Moles/volume] in Central venous blood [facility] Carbon dioxide, tota l [Moles/volume] in Central venous blood [facility] Carbon dioxide, tota l [Moles/volume] in Central venous blood [facility] CBC W Auto Different ial panel - Blood [facility] Work Phone: CBC W Auto Different ial panel - Blood [facility] CBC W Auto Different ial panel - Blood [facility] CBC W Auto Different ial panel - Blood [facility] CBC W Auto Different ial panel - Blood [facility] CBC W Auto Different ial panel - Blood [facility] CBC W Auto Different ial panel - Blood [facility] Comprehensive metabo lic 1999 panel - Serum or Plasma [facility] Comprehensive metabo lic 1999 panel - Serum or Plasma [facility] Creatinine [Mass/vol ume] in Serum or Plasma [facility] Creatinine [Mass/vol ume] in Serum or Plasma [facility] Creatinine [Mass/vol ume] in Serum or Plasma [facility] Creatinine [Mass/vol ume] in Serum or Plasma [facility] Creatinine [Mass/vol ume] in Serum or Plasma [facility] Erythrocyte mean cor puscular volume determination [facility] Erythrocyte mean cor puscular volume determination [facility] Erythrocyte mean cor puscular volume determination [facility] Erythrocyte mean cor puscular volume determination [facility] Erythrocyte mean cor puscular volume determination [facility] Glucose [Mass/volume ] in Serum or Plasma [facility] Glucose [Mass/volume ] in Serum or Plasma [facility] Glucose [Mass/volume ] in Serum or Plasma [facility] Glucose [Mass/volume ] in Serum or Plasma [facility] Glucose [Mass/volume ] in Serum or Plasma [facility] Hematocrit [Volume F raction] of Blood [facility] Hematocrit [Volume F raction] of Blood [facility] Hematocrit [Volume F raction] of Blood [facility] Hematocrit [Volume F raction] of Blood [facility] Hematocrit [Volume F raction] of Blood [facility] Hemoglobin [Mass/vol ume] in Blood [facility] Hemoglobin [Mass/vol ume] in Blood [facility] Hemoglobin [Mass/vol ume] in Blood [facility] Hemoglobin [Mass/vol ume] in Blood [facility] Hemoglobin [Mass/vol ume] in Blood [facility] Leukocytes [#/volume] in Blood [facility] Leukocytes [#/volume] in Blood [facility] Leukocytes [#/volume] in Blood [facility] Leukocytes [#/volume] in Blood [facility] Leukocytes [#/volume] in Blood [facility] Mean corpuscular hem oglobin concentration determination [facility] Mean corpuscular hem oglobin concentration determination [facility] Mean corpuscular hem oglobin concentration determination [facility] Mean corpuscular hem oglobin concentration determination [facility] Mean corpuscular hem oglobin concentration determination [facility] Mean corpuscular hem oglobin determination [facility] Mean corpuscular hem oglobin determination [facility] Mean corpuscular hem oglobin determination [facility] Mean corpuscular hem oglobin determination [facility] Mean corpuscular hem oglobin determination [facility] Measurement of renal function [facility] Measurement of renal function [facility] Measurement of renal function [facility] Measurement of renal function [facility] Measurement of renal function [facility] Neutrophil count [facility] Neutrophil count [facility] Neutrophil count [facility] Neutrophil count [facility] Neutrophil count [facility] Neutrophil percent d ifferential count [facility] Neutrophil percent d ifferential count [facility] Neutrophil percent d ifferential count [facility] Neutrophil percent d ifferential count [facility] Neutrophil percent d ifferential count [facility] Patient Education ED [facility] Work Phone: Patient referral [facility] Work Phone: Platelets [#/volume] in Blood [facility] Platelets [#/volume] in Blood [facility] Platelets [#/volume] in Blood [facility] Platelets [#/volume] in Blood [facility] Platelets [#/volume] in Blood [facility] Potassium measurement [facility] Potassium measurement [facility] Potassium measurement [facility] Potassium measurement [facility] Potassium measurement [facility] Red blood cell count [facility] Red blood cell count [facility] Red blood cell count [facility] Red blood cell count [facility] Red blood cell count [facility] Red cell distributio n width determination [facility] Red cell distributio n width determination [facility] Red cell distributio n width determination [facility] Red cell distributio n width determination [facility] Red cell distributio n width determination [facility] Serum chloride measurement [facility] Serum chloride measurement [facility] Serum chloride measurement [facility] Serum chloride measurement [facility] Serum chloride measurement [facility] Sodium measurement [facility] Sodium measurement [facility] Sodium measurement [facility] Sodium measurement [facility] Sodium measurement [facility] Urea nitrogen [Mass/ volume] in Serum or Plasma [facility] Urea nitrogen [Mass/ volume] in Serum or Plasma [facility] Urea nitrogen [Mass/ volume] in Serum or Plasma [facility] Urea nitrogen [Mass/ volume] in Serum or Plasma [facility] Urea nitrogen [Mass/ volume] in Serum or Plasma [facility] Immunizations Immunization Date Immunization Notes Care Provider Fa cility 11-23-2020 Covid (Moderna) Dr. Dago Emery Work Phone: [facility] 10-26-2020 Covid (Alvino) Dr. Dago Emery Work Phone: [facility] 01-16-2020 influenza, injectabl e, quadrivalent, preservative free Dr. Dago Emery Work Phone: [facility] 11-23-[address] Dago Emery Work Phone: [facility] 09-07-[address] Dago Emery Work Phone: [facility] 01-12-2019 influenza, injectabl e, quadrivalent, preservative free Dr. Dago Emery Work Phone: [facility] 12-20-2008 pneumococcal vaccine , unspecified formulation Dr. Dago Emery Work Phone: [facility] 07-21-2008 pneumococcal polysaccharide vaccine, [address] Dago Emery Work Phone: [facility] Payers Date Payer Category Payer Self-pay [id number] 2018 Medicare [id number] 2018 Private Health Insurance [id number] Unknown [facility] [id number] Unknown [id number] Unknown [id number] Unknown [id number] [id number] Unknown [id number] [id number] Unknown [id number] [id number] Unknown [id number] [id number] Unknown [id number] 2.16.840.1.919789.3.579.2.462 Unknown [id number] 2.16.840.1.274956.3.579.2.462 Unknown [id number] 2.16.840.1.665483.3.579.2.462 Unknown [id number] 2.16.840.1.937062.3.579.2.462 Unknown [id number] 2.16.840.1.135604.3.579.2.462 Unknown [id number] 2.16.840.1.628292.3.579.2.462 Unknown [id number] 2.16.840.1.129904.3.579.2.462 Unknown [id number] 2.16.840.1.628099.3.579.2.462 Unknown [id number] 2.16.840.1.684707.3.579.2.462 Unknown [id number] 2.16.840.1.552330.3.579.2.462 Unknown [id number] [id number] Unknown [id number] [id number] Unknown [id number] [id number] Social History Date Type Detail Facility Start: 07-24-2020 End: 09-25-2022 Tobacco smoking status NHIS Unknown if ever smoked [facility] Start: 04-16-2014 None [facility] Start: 12-02-2018 Non-smoker [facility] Start: 1945 Sex Assigned At Female [facility] Start: 07-31-2024 End: 11-01-2024 Tobacco smoking status NHIS Never smoked tobacco (finding) [facility] Not [facility] Medical Equipment Procedure Code Equipment Code Equipment Origin al Text Equipment Identifier Dates ([id number]) Metal-backed pat jason prosthesis ()[id number] FDA Start: 09-23-2022 ([id number]) Coated knee femu r prosthesis ()[id number] [id number] FDA Start: 09-23-2022 ([id number]) Coated knee tibi a prosthesis ()[id number] [id number] FDA Start: 09-23-2022 ([id number]) Tibial insert ()[id number] [id number] FDA Start: 09-23-2022 ([id number]) Uncoated knee fe mur prosthesis, metallic ()[id number] [id number] FDA Start: 10-16-2024 Tibial insert ()[id number] [id number] FDA Start: 10-16-2024 ([id number]) Polyethylene pat jason prosthesis ()[id number] [id number] FDA Start: 10-16-2024 (718655945) Uncoated knee ti jitendra prosthesis, metallic ()[id number] [id number] FDA Start: 10-16-2024 (775108755) Knee femur stem prosthesis ()[id number] [id number] FDA Start: 10-16-2024 (117868822) Knee femur stem prosthesis ()[id number] [id number] FDA Start: 10-16-2024 (831937285) Polymer orthopae dic cement restrictor, non-bioabsorbable, sterile ()[id number] [id number] FDA Start: 10-16-2024 Orthopaedic ceme nt, non-antimicrobial ()[id number] [id number] FDA Start: 10-16-2024 Goals Date Patient Goal Desired Activity /State Functional Status Date Assessment Result Facility 11-28-2024 Functional status Chair [facility] Work Phone: 11-27-2024 Functional status Standard [facility] Work Phone: 11-01-2024 Functional status Bedrest [facility] Work Phone: 10-31-2024 Functional status Standard [facility] Work Phone: 10-21-2024 Functional status Stand and pivot [facility] Work Phone: 10-14-2022 Functional status Activity Ability Indepe ndent [facility] Work Phone: 10-13-2022 Functional status Ambulates;Up ad aldo [facility] Work Phone: 10-12-2022 Functional status Tolerates Activity Well [facility] Work Phone: Mental Status Date Assessment Result Facility 11-28-2024 Cognitive function Voice/Name [facility] Work Phone: 11-18-2024 Cognitive function Appropriate;Cooperaticarlene e [facility] Work Phone: 11-01-2024 Cognitive function Voice/Name [facility] Work Phone: 10-31-2024 Cognitive function Appropriate;Coopersully thapa [facility] Work Phone: 10-21-2024 Cognitive function Voice/Name [facility] Work Phone: 10-14-2022 Cognitive function Voice/Name [facility] Work Phone: 10-07-2022 Cognitive function Appropriate [facility] Work Phone: Clinical Notes 07-10-2024 to 11-24-2024 Note Date & Type Note Facility 11-24-2024 Discharge summary Note Date/Time November 24, 2024 2:01pm [facility] Medical Records Department [address] [place] [address] Discharge Summary 11/24/24 1351 MR#: [id number] Acct: [id number] Name: BERNICE HASSAN Rep #:[id number] : 1945 79 From: Dago Emery MD PCP: Dr. Dago Emery MD Status:ADM I N Location: [place] [address] Providers Date of Admission: 10/21/24 Primary Care Physician: Dr. Dago Emery MD Consultations 10/31/24 07:27 Consult: Gastroenterology Routine Consulting Provider: [facility] Reason for Consult: Anemia, +Hemoccult. EMERGENT Consult: No MD Notified: Yes Date Notified: 10/31/24 Time Notified: 09:24 Method of Notification: Text Reason For Visit: ERAS,ROBOTIC ASSIST, L TOTAL KNEE ORTHOPLAST Diagnosis Discharge Diagnosis (1) Debility: Status: Acute Code(s): R53.81 - Other malaise (2) Status post total left knee replacement: Status: Acute Code(s): Z96.652 - Presence of left artificial knee joint (3) Essential (primary) hypertension: Status: Acute Code(s): I10 - Essential (primary) hypertension (4) Kidney stones: Status: Acute Code(s): N20.0 - Calculus of kidney (5) Myeloproliferative disorder: Status: Chronic Code(s): D47.1 - Chronic myeloproliferative disease (6) Hypothyroidism: Status: Chronic Code(s): E03.9 - Hypothyroidism, unspecified (7) Vitamin D deficiency: Status: Acute Code(s): E55.9 - Vitamin D deficiency, unspecified Plan 79 year old female with below past medical history hospitalized for left total knee replacement, removal left tibial nail, removal 4 interlocking screws 10/16/[address] Rodriguez, postoperative course complicated by acute left distaltibial fracture, nausea, vomiting, hypotension, constipation, admitted to TCU with debility, here for rehabilitation, strengthening, prior to discharge home alone. * Debility - PT/OT. * Pain - Tylenol 1000mg q8, Oxycodone 5-10mg q4 prn. * Bowel - senna/colace 2 tablets bid, Magnesium citrate 300mL daily prn. * Adult immunization - Administer pneumonia vaccine, covid vaccine, flu vaccine as appropriate. * DVT prophylaxis - Aspirin 81mg bid thru 11/18/2024. * Hypertension - Atenolol 25mg daily. * Vitamin D deficiency - D3 25mcg daily. * Gastric ulcer - Pantoprazole 40mg bid thru 01/30/2025, Sucralfate 1gm bid. * Folate deficiency - Folic acid 1mg daily. * Myeloproliferative disorder - Hydrea 1000mg 5 days/week. * Hypothyroidism - Levothyroxine 50mcg daily. * Nausea - Zofran 4mg q6 prn. * Skin irritation - Calmoseptine topical bid. * Tinea Corporis - Nystatin topical bid. * The following psychotropic medication is being started or the dose in being increased: Citalopram 20mg daily. Psychotropic medication therapy is indicated for a diagnosis of: Anxiety. In my professional judgement, medication is necessary because the resident?s symptoms cause significant distress to the resident or a danger to the resident or others. Evaluation for underlying causes including medical illness and pain has been considered. The benefits of the medication are felt to outweigh potential harm. Nonpharmacologic/behavior interventions have been attempted but have not been effective or nonpharmacologic interventions are contraindicated for this patient. Potential benefits and risks of treatment and alternatives have been reviewed with resident/family and the resident/family have accepted psychotropic medication treatment. Please see nursing documentation. The following psychotropic medication is being started or the dose in being increased: Lorazepam 0.5mg po q4 prn. Psychotropic medication therapy is indicated for a diagnosis of: Anxiety. In my professional judgement, medication is necessary because the resident?s symptoms cause significant distress to the resident or a danger to the resident or others. Evaluation for underlying causes including medical illness and pain has been considered. The benefits of the medication are felt to outweigh potential harm. Nonpharmacologic/behavior interventions have been attempted but have not been effective or nonpharmacologic interventions are contraindicated for this patient. Potential benefits and risks of treatment and alternatives have been reviewed with resident/family and the resident/family have accepted psychotropic medication treatment. Please see nursing documentation. Medications at Discharge Home Medications levothyroxine 50 mcg tablet (Levoxyl) 50 mcg PO DAILY thyroid 08/04/13 folic acid 1 mg tablet 1 mg PO BREAKFAST supplement 20 days #0 tabs 10/21/24 acetaminophen 500 mg tablet 1,000 mg (2 x 500 mg) PO Q6H PRN PRN Pain Score 1-10#0 tabs 11/24/24 atenolol 25 mg tablet 25 mg PO DAILY@0800 #0 tabs 11/24/24 cholecalciferol (vitamin D3) 25 mcg (1,000 unit) tablet 25 mcg PO DAILY #0 tabs 11/24/24 citalopram 20 mg tablet 20 mg PO DAILY #0 tabs 11/24/24 hydroxyurea 500 mg capsule 1,000 mg (2 x 500 mg) PO MoTuThFrSa@1000 #0 caps 11/24/24 lorazepam 0.5 mg tablet 0.5 mg PO Q4H PRN PRN Anxiety/Restlessness/Sleep 3 days #18 tabs 11/24/24 magnesium citrate 300 ml PO DAILY PRN Constipation #0 mL 11/24/24 menthol 0.44 %-zinc oxide 20.6 % topical ointment (Calmoseptine) 1 applic topical BID #0 grams 11/24/24 nystatin 100,000 unit/gram topical powder 1 applic topical BID #0 grams 11/24/24 oxycodone 5 mg tablet 5 - 10 mg (1 - 2 x 5 mg) PO Q4H PRN PRN Pain Score 3-10 3 days #36 tabs 11/24/24 pantoprazole 40 mg tablet,delayed release 40 mg PO BID #0 tabs 11/24/24 sennosides 8.6 mg-docusate sodium 50 mg tablet (Stimulant Laxative Plus) 2 tab PO BID #0 tabs 11/24/24 sucralfate 1 gram tablet 1 g PO BID@0700,1600 #0 tabs 11/24/24 Hospital Course Operations - (See below.) Procedures EGD Summary of Care Provided Minutes Spent on Discharge: 35 Hospital Course: 79 year old female with below past medical history hospitalized for left total knee replacement, removal left tibial nail, removal 4 interlocking screws 10/16/[address] Rodriguez, postoperative course complicated by acute left distaltibial fracture, nausea, vomiting, hypotension, constipation, admitted to TCU with debility, here for rehabilitation, strengthening, prior to discharge home alone. 11/01/2024 Dr. Webb EGD: Impression: - Normal esophagus. - Mild Schatzki ring. - Chronic gastritis. Biopsied. - Non-bleeding duodenal ulcer with no stigmata of bleeding. Biopsied. Recommendation: - Return patient to referring hospital for ongoing care. - Resume previous diet. - Use Protonix (pantoprazole) 40 mg PO BID for 3 months. - Use sucralfate tablets 1 gram PO BID for 1 month. Discharge 11/28/2024 to [facility], [facility], private pay, part B therapies. Physical Exam Const alert General Appearance: cooperative HEENT normocephalic Eyes PERRL and EOMs intact bilaterally Neck supple, no JVD and no carotid bruits Resp normal respiratory effort, normal air movement and clear to auscultation bilaterally Cardio regular rate and regular rhythm GI normal to inspection, nondistended, normoactive bowel sounds, non-tender and non-distended Extremity normal capillary refill Extremity Narrative: Left lower extremity cast. General Extremity: Negative for edema Skin no rashes or lesions noted General Skin Exam: no breakdown Psych affect normal Appearance: appropriate Weight / BMI Weight Weight: 85.638 kg Body Mass Index (BMI) 31.4 ABG / Lab / Microbiology Data 11/24/24 09:35 11/24/24 09:35 Laboratory: Laboratory Results - last 24 hr 11/24/24 09:35: WBC 4.2 L, RBC 2.67 L, Hgb 10.3 L, Hct 30.7 L, MCV 115.0 H, MCH 38.6 H, MCHC 33.6, RDW Std Deviation 70.3 H, RDW Coeff of Maury 16.9 H, Plt Count 239, MPV 10.0, Immature Gran % (Auto) 0.500, Neut % (Auto) 64.5, Lymph % (Auto) 27.0, [place] % (Auto) 5.3, Eos % (Auto) 2.2, Baso % (Auto) 0.5, Absolute Neuts (auto) 2.7, Absolute Lymphs (auto) 1.12, Nucleated RBC % 0, Differential CommentSCANNED, Anisocytosis 2+, Sodium 135, Potassium 3.7, Chloride 100, Carbon Dioxide 24.0, Anion Gap 12, BUN 12, Creatinine 1.02, Estim Creat Clear Calc 46.75 L, Est GFR (MDRD) Non-Af 55 L, BUN/Creatinine Ratio 11.3, Glucose 119 H, Calcium 9.0 Microbiology: Microbiology 11/13/24 05:16 Nasal Secretion SARS-CoV-2 Antigen (Rapid) - Final 11/11/24 05:04 Nasal Secretion SARS-CoV-2 Antigen (Rapid) - Final 11/09/24 05:42 Nasal Secretion SARS-CoV-2 Antigen (Rapid) - Final 10/31/24 03:40 Stool Stool Occult Blood (BREA) - Final Occult Blood Positive D/C Instructions Discharge Activity: Return to Normal Activity Weight Bearing Status: Toe touch weight bearing (Left lower extremity.) Call your doctor if you observe: Fever of 101 or Higher, Inability to urinate, Inability to have a bowel movement, Shortness of breath, Dizziness, Fainting spells, Swelling in the ankles, Chest pain and Uncontrolled pain DC O2, CPAP, BIPAP Needs Home O2 Discharge instructions: No Additional Instructions: Discharge 11/28/2024 to [facility], intermediate, private pay, part B therapies. Please Follow Up With: JOEY POTTS (ORTH[place]) When: As scheduled. Meaningful Use Info Meaningful Use Meaningful Use Diagnoses (Choose all that apply): None applicable Discharge Plan Admission Admit Date/Time: 10/21/24 14:09 Primary Reason for Your Visit: Debility. Attending Provider: Dago Emery Chi Primary Care Provider: Dago Emery Chi Instructions Additional Instructions / Restrictions: Discharge 11/28/2024 to [facility], intermediate, private pay, part B therapies. Discharge Orders/Prescriptions Prescriptions: New acetaminophen 500 mg Tablet 1,000 mg PO Q6H PRN PRN (Reason: Pain Score 1-10) Qty: 0 0RF atenolol 25 mg Tablet 25 mg PO DAILY@0800 Qty: 0 0RF cholecalciferol (vitamin D3) 25 mcg (1,000 unit) Tablet 25 mcg PO DAILY Qty: 0 0RF hydroxyurea 500 mg Capsule 1,000 mg PO MoTuThFrSa@1000 Qty: 0 0RF citalopram 20 mg Tablet 20 mg PO DAILY Qty: 0 0RF magnesium citrate Solution 300 ml PO DAILY PRN (Reason: Constipation) Qty: 0 0RF menthol-zinc oxide [Calmoseptine] 0.44-20.6 % Ointment 1 applic topical BID Qty: 0 0RF Protocol: *Topical Application Instructions APPLICATION INSTRUCTIONS: bilateral buttocks sennosides-docusate sodium [Stimulant Laxative Plus] 8.6-50 mg Tablet 2 tab PO BID Qty: 0 0RF pantoprazole 40 mg Tablet,Delayed Release (Dr/Ec) 40 mg PO BID Qty: 0 0RF nystatin 100,000 unit/gram Powder 1 applic topical BID Qty: 0 0RF Protocol: *Topical Application Instructions APPLICATION INSTRUCTIONS: Apply to areas of redness sucralfate 1 gram Tablet 1 g PO BID@0700,1600 Qty: 0 0RF lorazepam 0.5 mg Tablet 0.5 mg PO Q4H PRN PRN (Reason: Anxiety/Restlessness/Sleep) 3 Days Qty: 18 0RF oxycodone 5 mg Tablet 5 - 10 mg PO Q4H PRN PRN (Reason: Pain Score 3-10) 3 Days Qty: 36 0RF Continued levothyroxine [Levoxyl] 50 MCG tablet 50 mcg PO DAILY Patient Comments: THYROID folic acid 1 mg Tablet 1 mg PO BREAKFAST 20 Days Qty: 0 0RF Discontinued losartan 100 MG tablet 100 mg PO DAILY Patient Comments: take 1 tablet by mouth once daily amlodipine 5 MG tablet 5 mg PO DAILY cholecalciferol (vitamin D3) 1,000 UNIT tablet 1,000 unit PO DAILY atenolol 50 mg Tablet 50 mg PO DAILY@0800 30 Days Qty: 30 0RF oxycodone 5 mg Tablet 5 - 10 mg PO Q4H PRN PRN (Reason: Pain Score) Rx Instructions: take 1 tab for pain score, 3-5, take 2 tabs for pain score 6-10 ondansetron 4 mg tablet,disintegrating 4 mg PO Q6H PRN (Reason: nausea and vomiting) citalopram [Celexa] 10 mg tablet 10 mg PO DAILY lorazepam [Ativan] 0.5 mg tablet 0.5 mg PO Q4H PRN (Reason: anxiety) senna-docusate sodium Tablet 2 tab PO BID magnesium citrate [Citrate of Magnesia] Solution 300 ml PO DAILY PRN (Reason: constipation) acetaminophen 500 mg Tablet 1,000 mg PO Q8 Qty: 0 0RF aspirin 81 mg capsule 81 mg PO BIDCM Qty: 60 0RF Rx Instructions: Take for 4 weeks postoperatively. famotidine 20 mg Tablet 20 mg PO DAILY 30 Days Qty: 0 0RF hydroxyurea 500 mg capsule 1,000 mg PO MOTUTHFRSA Qty: 100 4RF Rx Instructions: does not take on wednesdays or sundays Referrals / Follow Up: Geo Rodriguez MD [Med Staff - Active Staff] - 12/01/24 10:00 am Dago Emery Chi, MD [Primary Care Provider] - 11/22/24 3:00 pm (new patient/hospital follow up) Disposition Disposition (needs filled in before D/C Order can be placed): NonSkilled NH/Intermed Care 11/24/24 1401 <Electronically signed by Dago Emery MD> Cosigner Signature (if applicable): CC: Dr. Dago Emery MD~ Signed [facility] Work Phone: [phone] [phone] Discharge summary Author Dago [place] [facility] Note Date/Time November 24, 2024 2:01pm [facility] Medical Records Department [address] [place] [address] Transfer to [facility] MR#: [id number] Acct: [id number] Name: BERNICE HASSAN Rep #:[id number] : 1945 79 From: Dago Emery MD PCP: Dr. Dago Emery MD Status:ADM I N Certification of patient admission REQUIRED AT TIME OF ADMISSION. I CERTIFY THAT POST-HOSPITAL ECF SERVICES ARE REQUIRED TO BE GIVEN ON AN IN-PATIENT BASIS BECAUSE OF THE ABOVE NAMED PATIENT'S NEED FOR CARE HOME CARE ON A CONTINUING BASIS FOR THE CONDITION(S) FOR WHICH HE/SHE WAS RECEIVING IN-PATIENT HOSPITAL SERVICES PRIOR TO HIS/HER TRANSFER TO THE ECF. 11/24/24 1401<Electronically signed by Dago Emery MD> Diet Diet Order/Speech Therapy: INPATIENT Hospital Diet / Speech Therapy Order(s) 11/01/24 16:59 Diet: Regular - General Diet Comments: ALLERGIC TO RED DYE Routine Orders/Code Status Code Status: Full Code DC O2, CPAP, BIPAP needs Home O2 Discharge instructions: No Wound(s) left knee: Wound Type: Surgical Incision Dressing Change: Dry Sterile Dressing left medial knee: Wound Type: Surgical Incision Dressing Change: Dry Sterile Dressing left upper carpio: Wound Type: Surgical Incision left lower carpio: Wound Type: Surgical Incision left medial ankle: Wound Type: Surgical Incision Dressing Change: cast left elbow: Wound Type: Abrasion Therapies Weight Bearing: Toe-touch weight bearing (Left lower extremity.) Physical Therapy: Eval and Treat Occupational Therapy: Eval and Treat Problem/Diagnosis (1) Debility: Status: Acute Code(s): R53.81 - Other malaise (2) Status post total left knee replacement: Status: Acute Code(s): Z96.652 - Presence of left artificial knee joint (3) Essential (primary) hypertension: Status: Acute Code(s): I10 - Essential (primary) hypertension (4) Kidney stones: Status: Acute Code(s): N20.0 - Calculus of kidney (5) Myeloproliferative disorder: Status: Chronic Code(s): D47.1 - Chronic myeloproliferative disease (6) Hypothyroidism: Status: Chronic Code(s): E03.9 - Hypothyroidism, unspecified (7) Vitamin D deficiency: Status: Acute Code(s): E55.9 - Vitamin D deficiency, unspecified Comment: ON SUPPLEMENT Plan 79 year old female with below past medical history hospitalized for left total knee replacement, removal left tibial nail, removal 4 interlocking screws 10/16/[address] Rodriguez, postoperative course complicated by acute left distaltibial fracture, nausea, vomiting, hypotension, constipation, admitted to TCU with debility, here for rehabilitation, strengthening, prior to discharge home alone. * Debility - PT/OT. * Pain - Tylenol 1000mg q8, Oxycodone 5-10mg q4 prn. * Bowel - senna/colace 2 tablets bid, Magnesium citrate 300mL daily prn. * Adult immunization - Administer pneumonia vaccine, covid vaccine, flu vaccine as appropriate. * DVT prophylaxis - Aspirin 81mg bid thru 11/18/2024. * Hypertension - Atenolol 25mg daily. * Vitamin D deficiency - D3 25mcg daily. * Gastric ulcer - Pantoprazole 40mg bid thru 01/30/2025, Sucralfate 1gm bid. * Folate deficiency - Folic acid 1mg daily. * Myeloproliferative disorder - Hydrea 1000mg 5 days/week. * Hypothyroidism - Levothyroxine 50mcg daily. * Nausea - Zofran 4mg q6 prn. * Skin irritation - Calmoseptine topical bid. * Tinea Corporis - Nystatin topical bid. * The following psychotropic medication is being started or the dose in being increased: Citalopram 20mg daily. Psychotropic medication therapy is indicated for a diagnosis of: Anxiety. In my professional judgement, medication is necessary because the resident?s symptoms cause significant distress to the resident or a danger to the resident or others. Evaluation for underlying causes including medical illness and pain has been considered. The benefits of the medication are felt to outweigh potential harm. Nonpharmacologic/behavior interventions have been attempted but have not been effective or nonpharmacologic interventions are contraindicated for this patient. Potential benefits and risks of treatment and alternatives have been reviewed with resident/family and the resident/family have accepted psychotropic medication treatment. Please see nursing documentation. The following psychotropic medication is being started or the dose in being increased: Lorazepam 0.5mg po q4 prn. Psychotropic medication therapy is indicated for a diagnosis of: Anxiety. In my professional judgement, medication is necessary because the resident?s symptoms cause significant distress to the resident or a danger to the resident or others. Evaluation for underlying causes including medical illness and pain has been considered. The benefits of the medication are felt to outweigh potential harm. Nonpharmacologic/behavior interventions have been attempted but have not been effective or nonpharmacologic interventions are contraindicated for this patient. Potential benefits and risks of treatment and alternatives have been reviewed with resident/family and the resident/family have accepted psychotropic medication treatment. Please see nursing documentation. Allergies/Procedures Done in Hospital Allergies promethazine HCl (From Phenergan) Allergy (Severe, Verified 11/01/24 15:06) Other heightens engery (zing) Penicillins Adverse Reaction (Severe, Verified 11/01/24 15:06) Swelling red dye Adverse Reaction (Severe, Verified 11/01/24 15:06) Unknown mouth to droop Tetanus Vaccines and Toxoid Adverse Reaction (Intermediate, Verified 11/01/24 15:06) NEEDS FOLLOW-UP Procedures: EGD Type of Care/Length of Stay Estimated LOS: More Than 30 Days Type of Care Needed: Intermediate Rehab Potential: Good Prognosis: Good Additional Orders/Day of Discharge Additional Orders: part B therapies Day of Discharge: 11/28/24 Dietary and Speech Recommendations Dietitian Recommendations/Changes: Will continue liberal regular diet per res request. Will order 4 oz ensure plus high protein tid w/ medpass d/t wt loss since adm Trend weights as available. Follow Up Care Please Follow Up With: JEOY POTTS (ORTH[place]) Discharge Plan Admission Admit Date/Time: 10/21/24 14:09 Primary Reason for Your Visit: Debility. Attending Provider: Dago Emery Chi Primary Care Provider: Dago Emery Chi Instructions Additional Instructions / Restrictions: Discharge 11/28/2024 to [facility], [facility], private pay, part B therapies. Discharge Orders/Prescriptions Prescriptions: New acetaminophen 500 mg Tablet 1,000 mg PO Q6H PRN PRN (Reason: Pain Score 1-10) Qty: 0 0RF atenolol 25 mg Tablet 25 mg PO DAILY@0800 Qty: 0 0RF cholecalciferol (vitamin D3) 25 mcg (1,000 unit) Tablet 25 mcg PO DAILY Qty: 0 0RF hydroxyurea 500 mg Capsule 1,000 mg PO MoTuThFrSa@1000 Qty: 0 0RF citalopram 20 mg Tablet 20 mg PO DAILY Qty: 0 0RF magnesium citrate Solution 300 ml PO DAILY PRN (Reason: Constipation) Qty: 0 0RF menthol-zinc oxide [Calmoseptine] 0.44-20.6 % Ointment 1 applic topical BID Qty: 0 0RF Protocol: *Topical Application Instructions APPLICATION INSTRUCTIONS: bilateral buttocks sennosides-docusate sodium [Stimulant Laxative Plus] 8.6-50 mg Tablet 2 tab PO BID Qty: 0 0RF pantoprazole 40 mg Tablet,Delayed Release (Dr/Ec) 40 mg PO BID Qty: 0 0RF nystatin 100,000 unit/gram Powder 1 applic topical BID Qty: 0 0RF Protocol: *Topical Application Instructions APPLICATION INSTRUCTIONS: Apply to areas of redness sucralfate 1 gram Tablet 1 g PO BID@0700,1600 Qty: 0 0RF lorazepam 0.5 mg Tablet 0.5 mg PO Q4H PRN PRN (Reason: Anxiety/Restlessness/Sleep) 3 Days Qty: 18 0RF oxycodone 5 mg Tablet 5 - 10 mg PO Q4H PRN PRN (Reason: Pain Score 3-10) 3 Days Qty: 36 0RF Continued levothyroxine [Levoxyl] 50 MCG tablet 50 mcg PO DAILY Patient Comments: THYROID folic acid 1 mg Tablet 1 mg PO BREAKFAST 20 Days Qty: 0 0RF Discontinued losartan 100 MG tablet 100 mg PO DAILY Patient Comments: take 1 tablet by mouth once daily amlodipine 5 MG tablet 5 mg PO DAILY cholecalciferol (vitamin D3) 1,000 UNIT tablet 1,000 unit PO DAILY atenolol 50 mg Tablet 50 mg PO DAILY@0800 30 Days Qty: 30 0RF oxycodone 5 mg Tablet 5 - 10 mg PO Q4H PRN PRN (Reason: Pain Score) Rx Instructions: take 1 tab for pain score, 3-5, take 2 tabs for pain score 6-10 ondansetron 4 mg tablet,disintegrating 4 mg PO Q6H PRN (Reason: nausea and vomiting) citalopram [Celexa] 10 mg tablet 10 mg PO DAILY lorazepam [Ativan] 0.5 mg tablet 0.5 mg PO Q4H PRN (Reason: anxiety) senna-docusate sodium Tablet 2 tab PO BID magnesium citrate [Citrate of Magnesia] Solution 300 ml PO DAILY PRN (Reason: constipation) acetaminophen 500 mg Tablet 1,000 mg PO Q8 Qty: 0 0RF aspirin 81 mg capsule 81 mg PO BIDCM Qty: 60 0RF Rx Instructions: Take for 4 weeks postoperatively. famotidine 20 mg Tablet 20 mg PO DAILY 30 Days Qty: 0 0RF hydroxyurea 500 mg capsule 1,000 mg PO MOTUTHFRSA Qty: 100 4RF Rx Instructions: does not take on wednesdays or sundays Referrals / Follow Up: Geo Rodriguez MD [Med Staff - Active Staff] - 12/01/24 10:00 am Dago Emery Chi, MD [Primary Care Provider] - 11/22/24 3:00 pm (new patient/hospital follow up) Disposition Disposition (needs filled in before D/C Order can be placed): NonSkilled NH/Intermed Care 11/24/24 1401 <Electronically signed by Dago Emery MD> Cosigner Signature (if applicable): CC: Dr. Dago Emery MD ~ [facility] Work Phone: [phone] Discharge summary [facility] Medical Records Department [address] [place] [address] Discharge Summary 11/24/24 1351 MR#: [id number] Acct: [id number] Name: BERNICE HASSAN Rep #:[id number] : 1945 79 From: Dago Emery MD PCP: Dr. Dago Emery MD Status:ADM I N Location: [place] [address] Providers Date of Admission: 10/21/24 Primary Care Physician: Dr. Dago Emery MD Consultations 10/31/24 07:27 Consult: Gastroenterology Routine Consulting Provider: [facility] Reason for Consult: Anemia, +Hemoccult. EMERGENT Consult: No MD Notified: Yes Date Notified: 10/31/24 Time Notified: 09:24 Method of Notification: Text Reason For Visit: ERAS,ROBOTIC ASSIST, L TOTAL KNEE ORTHOPLAST Diagnosis Discharge Diagnosis (1) Debility: Status: Acute Code(s): R53.81 - Other malaise (2) Status post total left knee replacement: Status: Acute Code(s): Z96.652 - Presence of left artificial knee joint (3) Essential (primary) hypertension: Status: Acute Code(s): I10 - Essential (primary) hypertension (4) Kidney stones: Status: Acute Code(s): N20.0 - Calculus of kidney (5) Myeloproliferative disorder: Status: Chronic Code(s): D47.1 - Chronic myeloproliferative disease (6) Hypothyroidism: Status: Chronic Code(s): E03.9 - Hypothyroidism, unspecified (7) Vitamin D deficiency: Status: Acute Code(s): E55.9 - Vitamin D deficiency, unspecified Plan 79 year old female with below past medical history hospitalized for left total knee replacement, removal left tibial nail, removal 4 interlocking screws 10/16/[address] Rodriguez, postoperative course complicated by acute left distaltibial fracture, nausea, vomiting, hypotension, constipation, admitted to TCU with debility, here for rehabilitation, strengthening, prior to discharge home alone. * Debility - PT/OT. * Pain - Tylenol 1000mg q8, Oxycodone 5-10mg q4 prn. * Bowel - senna/colace 2 tablets bid, Magnesium citrate 300mL daily prn. * Adult immunization - Administer pneumonia vaccine, covid vaccine, flu vaccine as appropriate. * DVT prophylaxis - Aspirin 81mg bid thru 11/18/2024. * Hypertension - Atenolol 25mg daily. * Vitamin D deficiency - D3 25mcg daily. * Gastric ulcer - Pantoprazole 40mg bid thru 01/30/2025, Sucralfate 1gm bid. * Folate deficiency - Folic acid 1mg daily. * Myeloproliferative disorder - Hydrea 1000mg 5 days/week. * Hypothyroidism - Levothyroxine 50mcg daily. * Nausea - Zofran 4mg q6 prn. * Skin irritation - Calmoseptine topical bid. * Tinea Corporis - Nystatin topical bid. * The following psychotropic medication is being started or the dose in being increased: Citalopram 20mg daily. Psychotropic medication therapy is indicated for a diagnosis of: Anxiety. In my professional judgement, medication is necessary because the resident?s symptoms cause significant distress to the resident or a danger to the resident or others. Evaluation for underlying causes including medical illness and pain has been considered. The benefits of the medication are felt tooutweigh potential harm. Nonpharmacologic/behavior interventions have been attempted but have not been effective or nonpharmacologic interventions are contraindicated for this patient. Potential benefits and risks of treatment and alternatives have been reviewed with resident/family and the resident/family have accepted psychotropic medication treatment. Please see nursing documentation. The following psychotropic medication is being started or the dose in being increased: Lorazepam 0.5mg po q4 prn. Psychotropic medication therapy is indicated for a diagnosis of: Anxiety. In my professional judgement, medication is necessary because the resident?s symptoms cause significant distress to the resident or a danger to the resident or others. Evaluation for underlying causes including medical illness and pain has been considered. The benefits of the medication are felt tooutweigh potential harm. Nonpharmacologic/behavior interventions have been attempted but have not been effective or nonpharmacologic interventions are contraindicated for this patient. Potential benefits and risks of treatment and alternatives have been reviewed with resident/family and the resident/family have accepted psychotropic medication treatment. Please see nursing documentation. Medications at Discharge Home Medications levothyroxine 50 mcg tablet (Levoxyl) 50 mcg PO DAILY thyroid 08/04/13 folic acid 1 mg tablet 1 mg PO BREAKFAST supplement 20 days #0 tabs 10/21/24 acetaminophen 500 mg tablet 1,000 mg (2 x 500 mg) PO Q6H PRN PRN Pain Score 1- 10#0 tabs 11/24/24 atenolol 25 mg tablet 25 mg PO DAILY@0800 #0 tabs 11/24/24 cholecalciferol (vitamin D3) 25 mcg (1,000 unit) tablet 25 mcg PO DAILY #0 tabs 11/24/24 citalopram 20 mg tablet 20 mg PO DAILY #0 tabs 11/24/24 hydroxyurea 500 mg capsule 1,000 mg (2 x 500 mg) PO MoTuThFrSa@1000 #0 caps 11/24/24 lorazepam 0.5 mg tablet 0.5 mg PO Q4H PRN PRN Anxiety/Restlessness/Sleep 3 days #18 tabs 11/24/24 magnesium citrate 300 ml PO DAILY PRN Constipation #0 mL 11/24/24 menthol 0.44 %-zinc oxide 20.6 % topical ointment (Calmoseptine) 1 applic topical BID #0 grams 11/24/24 nystatin 100,000 unit/gram topical powder 1 applic topical BID #0 grams 11/24/24 oxycodone 5 mg tablet 5 - 10 mg (1 - 2 x 5 mg) PO Q4H PRN PRN Pain Score 3-10 3 days #36 tabs 11/24/24 pantoprazole 40 mg tablet,delayed release 40 mg PO BID #0 tabs 11/24/24 sennosides 8.6 mg-docusate sodium 50 mg tablet (Stimulant Laxative Plus) 2 tab PO BID #0 tabs 11/24/24 sucralfate 1 gram tablet 1 g PO BID@0700,1600 #0 tabs 11/24/24 Hospital Course Operations - (See below.) Procedures EGD Summary of Care Provided Minutes Spent on Discharge: 35 Hospital Course: 79 year old female with below past medical history hospitalized for left total knee replacement, removal left tibial nail, removal 4 interlocking screws 10/16/[address] Rodriguez, postoperative course complicated by acute left distaltibial fracture, nausea, vomiting, hypotension, constipation, admitted to TCU with debility, here for rehabilitation, strengthening, prior to discharge home alone. 11/01/2024 Dr. Webb EGD: Impression: - Normal esophagus. - Mild Schatzki ring. - Chronic gastritis. Biopsied. - Non-bleeding duodenal ulcer with no stigmata of bleeding. Biopsied. Recommendation: - Return patient to referring hospital for ongoing care. - Resume previous diet. - Use Protonix (pantoprazole) 40 mg PO BID for 3 months. - Use sucralfate tablets 1 gram PO BID for 1 month. Discharge 11/28/2024 to [facility], [facility], private pay, part B therapies. Physical Exam Const alert General Appearance: cooperative HEENT normocephalic Eyes PERRL and EOMs intact bilaterally Neck supple, no JVD and no carotid bruits Resp normal respiratory effort, normal air movement and clear to auscultation bilaterally Cardio regular rate and regular rhythm GI normal to inspection, nondistended, normoactive bowel sounds, non-tender and non-distended Extremity normal capillary refill Extremity Narrative: Left lower extremity cast. General Extremity: Negative for edema Skin no rashes or lesions noted General Skin Exam: no breakdown Psych affect normal Appearance: appropriate Weight / BMI Weight Weight: 85.638 kg Body Mass Index (BMI) 31.4 ABG / Lab / Microbiology Data 11/24/24 09:35 11/24/24 09:35 Laboratory: Laboratory Results - last 24 hr 11/24/24 09:35: WBC 4.2 L, RBC 2.67 L, Hgb 10.3 L, Hct 30.7 L, MCV 115.0 H, MCH 38.6 H, MCHC 33.6, RDW Std Deviation 70.3 H, RDW Coeff of Maury 16.9 H, Plt Count 239, MPV 10.0, Immature Gran % (Auto) 0.500, Neut % (Auto) 64.5, Lymph % (Auto) 27.0, [place] % (Auto) 5.3, Eos % (Auto) 2.2, Baso % (Auto) 0.5, Absolute Neuts (auto) 2.7, Absolute Lymphs (auto) 1.12, Nucleated RBC % 0, Differential CommentSCANNED, Anisocytosis 2+, Sodium 135, Potassium 3.7, Chloride 100, Carbon Dioxide 24.0, Anion Gap 12, BUN 12, Creatinine 1.02, Estim Creat Clear Calc 46.75 L, Est GFR (MDRD) Non-Af 55 L, BUN/Creatinine Ratio 11.3, Glucose 119 H, Calcium 9.0 Microbiology: Microbiology 11/13/24 05:16 Nasal Secretion SARS-CoV-2 Antigen (Rapid) - Final 11/11/24 05:04 Nasal Secretion SARS-CoV-2 Antigen (Rapid) - Final 11/09/24 05:42 Nasal Secretion SARS-CoV-2 Antigen (Rapid) - Final 10/31/24 03:40 Stool Stool Occult Blood (BREA) - Final Occult Blood Positive D/C Instructions Discharge Activity: Return to Normal Activity Weight Bearing Status: Toe touch weight bearing (Left lower extremity.) Call your doctor if you observe: Fever of 101 or Higher, Inability to urinate, Inability to have a bowel movement, Shortness of breath, Dizziness, Fainting spells, Swelling in the ankles, Chest pain and Uncontrolled pain DC O2, CPAP, BIPAP Needs Home O2 Discharge instructions: No Additional Instructions: Discharge 11/28/2024 to [facility], intermediate, private pay, part B therapies. Please Follow Up With: JOEY POTTS (ORTHO) When: As scheduled. Meaningful Use Info Meaningful Use Meaningful Use Diagnoses (Choose all that apply): None applicable Discharge Plan Admission Admit Date/Time: 10/21/24 14:09 Primary Reason for Your Visit: Debility. Attending Provider: Dago Emery Chi Primary Care Provider: Dago Emery Chi Instructions Additional Instructions / Restrictions: Discharge 11/28/2024 to [facility], intermediate, private pay, part B therapies. Discharge Orders/Prescriptions Prescriptions: New acetaminophen 500 mg Tablet 1,000 mg PO Q6H PRN PRN (Reason: Pain Score 1-10) Qty: 0 0RF atenolol 25 mg Tablet 25 mg PO DAILY@0800 Qty: 0 0RF cholecalciferol (vitamin D3) 25 mcg (1,000 unit) Tablet 25 mcg PO DAILY Qty: 0 0RF hydroxyurea 500 mg Capsule 1,000 mg PO MoTuThFrSa@1000 Qty: 0 0RF citalopram 20 mg Tablet 20 mg PO DAILY Qty: 0 0RF magnesium citrate Solution 300 ml PO DAILY PRN (Reason: Constipation) Qty: 0 0RF menthol-zinc oxide [Calmoseptine] 0.44-20.6 % Ointment 1 applic topical BID Qty: 0 0RF Protocol: *Topical Application Instructions APPLICATION INSTRUCTIONS: bilateral buttocks sennosides-docusate sodium [Stimulant Laxative Plus] 8.6-50 mg Tablet 2 tab PO BID Qty: 0 0RF pantoprazole 40 mg Tablet,Delayed Release (Dr/Ec) 40 mg PO BID Qty: 0 0RF nystatin 100,000 unit/gram Powder 1 applic topical BID Qty: 0 0RF Protocol: *Topical Application Instructions APPLICATION INSTRUCTIONS: Apply to areas of redness sucralfate 1 gram Tablet 1 g PO BID@0700,1600 Qty: 0 0RF lorazepam 0.5 mg Tablet 0.5 mg PO Q4H PRN PRN (Reason: Anxiety/Restlessness/Sleep) 3 Days Qty: 18 0RF oxycodone 5 mg Tablet 5 - 10 mg PO Q4H PRN PRN (Reason: Pain Score 3-10) 3 Days Qty: 36 0RF Continued levothyroxine [Levoxyl] 50 MCG tablet 50 mcg PO DAILY Patient Comments: THYROID folic acid 1 mg Tablet 1 mg PO BREAKFAST 20 Days Qty: 0 0RF Discontinued losartan 100 MG tablet 100 mg PO DAILY Patient Comments: take 1 tablet by mouth once daily amlodipine 5 MG tablet 5 mg PO DAILY cholecalciferol (vitamin D3) 1,000 UNIT tablet 1,000 unit PO DAILY atenolol 50 mg Tablet 50 mg PO DAILY@0800 30 Days Qty: 30 0RF oxycodone 5 mg Tablet 5 - 10 mg PO Q4H PRN PRN (Reason: Pain Score) Rx Instructions: take 1 tab for pain score, 3-5, take 2 tabs for pain score 6-10 ondansetron 4 mg tablet,disintegrating 4 mg PO Q6H PRN (Reason: nausea and vomiting) citalopram [Celexa] 10 mg tablet 10 mg PO DAILY lorazepam [Ativan] 0.5 mg tablet 0.5 mg PO Q4H PRN (Reason: anxiety) senna-docusate sodium Tablet 2 tab PO BID magnesium citrate [Citrate of Magnesia] Solution 300 ml PO DAILY PRN (Reason: constipation) acetaminophen 500 mg Tablet 1,000 mg PO Q8 Qty: 0 0RF aspirin 81 mg capsule 81 mg PO BIDCM Qty: 60 0RF Rx Instructions: Take for 4 weeks postoperatively. famotidine 20 mg Tablet 20 mg PO DAILY 30 Days Qty: 0 0RF hydroxyurea 500 mg capsule 1,000 mg PO MOTUTHFRSA Qty: 100 4RF Rx Instructions: does not take on wednesdays or sundays Referrals / Follow Up: Geo Rodriguez MD [Med Staff - Active Staff] - 12/01/24 10:00 am Dago Emery Chi, MD [Primary Care Provider] - 11/22/24 3:00 pm (new patient/hospital follow up) Disposition Disposition (needs filled in before D/C Order can be placed): NonSkilled NH/Intermed Care 11/24/24 1401 Cosigner Signature (if applicable): CC: Dr. Dago Emery MD~ Signed [facility]09-05-2025 Discharge summary [facility] Medical Records Department [address] [place] [address] Transfer to [facility] MR#: [id number] Acct: [id number] Name: BERNICE HASSAN Rep #:[id number] : 1945 79 From: Dago Emery MD PCP: Dr. Dago Emery MD Status:ADM I N Certification of patient admission REQUIRED AT TIME OF ADMISSION. I CERTIFY THAT POST-HOSPITAL ECF SERVICES ARE REQUIRED TO BE GIVEN ON AN IN-PATIENT BASIS BECAUSE OF THE ABOVE NAMED PATIENT'S NEED FOR CARE HOME CARE ON A CONTINUING BASIS FOR THE CONDITION(S) FOR WHICH HE/SHE WAS RECEIVING IN-PATIENT HOSPITAL SERVICES PRIOR TO HIS/HER TRANSFER TO THE [facility]. 11/24/24 1401 Diet Diet Order/Speech Therapy: INPATIENT Hospital Diet / Speech Therapy Order(s) 11/01/24 16:59 Diet: Regular - General Diet Comments: ALLERGIC TO RED DYE Routine Orders/Code Status Code Status: Full Code DC O2, CPAP, BIPAP needs Home O2 Discharge instructions: No Wound(s) left knee: Wound Type: Surgical Incision Dressing Change: Dry Sterile Dressing left medial knee: Wound Type: Surgical Incision Dressing Change: Dry Sterile Dressing left upper carpio: Wound Type: Surgical Incision left lower carpio: Wound Type: Surgical Incision left medial ankle: Wound Type: Surgical Incision Dressing Change: cast left elbow: Wound Type: Abrasion Therapies Weight Bearing: Toe-touch weight bearing (Left lower extremity.) Physical Therapy: Eval and Treat Occupational Therapy: Eval and Treat Problem/Diagnosis (1) Debility: Status: Acute Code(s): R53.81 - Other malaise (2) Status post total left knee replacement: Status: Acute Code(s): Z96.652 - Presence of left artificial knee joint (3) Essential (primary) hypertension: Status: Acute Code(s): I10 - Essential (primary) hypertension (4) Kidney stones: Status: Acute Code(s): N20.0 - Calculus of kidney (5) Myeloproliferative disorder: Status: Chronic Code(s): D47.1 - Chronic myeloproliferative disease (6) Hypothyroidism: Status: Chronic Code(s): E03.9 - Hypothyroidism, unspecified (7) Vitamin D deficiency: Status: Acute Code(s): E55.9 - Vitamin D deficiency, unspecified Comment: ON SUPPLEMENT Plan 79 year old female with below past medical history hospitalized for left total knee replacement, removal left tibial nail, removal 4 interlocking screws 10/16/[address] Rodriguez, postoperative course complicated by acute left distaltibial fracture, nausea, vomiting, hypotension, constipation, admitted to TCU with debility, here for rehabilitation, strengthening, prior to discharge home alone. * Debility - PT/OT. * Pain - Tylenol 1000mg q8, Oxycodone 5-10mg q4 prn. * Bowel - senna/colace 2 tablets bid, Magnesium citrate 300mL daily prn. * Adult immunization - Administer pneumonia vaccine, covid vaccine, flu vaccine as appropriate. * DVT prophylaxis - Aspirin 81mg bid thru 11/18/2024. * Hypertension - Atenolol 25mg daily. * Vitamin D deficiency - D3 25mcg daily. * Gastric ulcer - Pantoprazole 40mg bid thru 01/30/2025, Sucralfate 1gm bid. * Folate deficiency - Folic acid 1mg daily. * Myeloproliferative disorder - Hydrea 1000mg 5 days/week. * Hypothyroidism - Levothyroxine 50mcg daily. * Nausea - Zofran 4mg q6 prn. * Skin irritation - Calmoseptine topical bid. * Tinea Corporis - Nystatin topical bid. * The following psychotropic medication is being started or the dose in being increased: Citalopram 20mg daily. Psychotropic medication therapy is indicated for a diagnosis of: Anxiety. In my professional judgement, medication is necessary because the resident?s symptoms cause significant distress to the resident or a danger to the resident or others. Evaluation for underlying causes including medical illness and pain has been considered. The benefits of the medication are felt tooutweigh potential harm. Nonpharmacologic/behavior interventions have been attempted but have not been effective or nonpharmacologic interventions are contraindicated for this patient. Potential benefits and risks of treatment and alternatives have been reviewed with resident/family and the resident/family have accepted psychotropic medication treatment. Please see nursing documentation. The following psychotropic medication is being started or the dose in being increased: Lorazepam 0.5mg po q4 prn. Psychotropic medication therapy is indicated for a diagnosis of: Anxiety. In my professional judgement, medication is necessary because the resident?s symptoms cause significant distress to the resident or a danger to the resident or others. Evaluation for underlying causes including medical illness and pain has been considered. The benefits of the medication are felt tooutweigh potential harm. Nonpharmacologic/behavior interventions have been attempted but have not been effective or nonpharmacologic interventions are contraindicated for this patient. Potential benefits and risks of treatment and alternatives have been reviewed with resident/family and the resident/family have accepted psychotropic medication treatment. Please see nursing documentation. Allergies/Procedures Done in Hospital Allergies promethazine HCl (From Phenergan) Allergy (Severe, Verified 11/01/24 15:06) Other heightens engery (zing) Penicillins Adverse Reaction (Severe, Verified 11/01/24 15:06) Swelling red dye Adverse Reaction (Severe, Verified 11/01/24 15:06) Unknown mouth to droop Tetanus Vaccines and Toxoid Adverse Reaction (Intermediate, Verified 11/01/24 15:06) NEEDS FOLLOW-UP Procedures: EGD Type of Care/Length of Stay Estimated LOS: More Than 30 Days Type of Care Needed: Intermediate Rehab Potential: Good Prognosis: Good Additional Orders/Day of Discharge Additional Orders: part B therapies Day of Discharge: 11/28/24 Dietary and Speech Recommendations Dietitian Recommendations/Changes: Will continue liberal regular diet per res request. Will order 4 oz ensure plus high protein tid w/ medpass d/t wt loss since adm Trend weights as available. Follow Up Care Please Follow Up With: JOEY POTTS (ORTHO) Discharge Plan Admission Admit Date/Time: 10/21/24 14:09 Primary Reason for Your Visit: Debility. Attending Provider: Dago Emery Chi Primary Care Provider: Dago Emery Chi Instructions Additional Instructions / Restrictions: Discharge 11/28/2024 to [facility], intermediate, private pay, part B therapies. Discharge Orders/Prescriptions Prescriptions: New acetaminophen 500 mg Tablet 1,000 mg PO Q6H PRN PRN (Reason: Pain Score 1-10) Qty: 0 0RF atenolol 25 mg Tablet 25 mg PO DAILY@0800 Qty: 0 0RF cholecalciferol (vitamin D3) 25 mcg (1,000 unit) Tablet 25 mcg PO DAILY Qty: 0 0RF hydroxyurea 500 mg Capsule 1,000 mg PO MoTuThFrSa@1000 Qty: 0 0RF citalopram 20 mg Tablet 20 mg PO DAILY Qty: 0 0RF magnesium citrate Solution 300 ml PO DAILY PRN (Reason: Constipation) Qty: 0 0RF menthol-zinc oxide [Calmoseptine] 0.44-20.6 % Ointment 1 applic topical BID Qty: 0 0RF Protocol: *Topical Application Instructions APPLICATION INSTRUCTIONS: bilateral buttocks sennosides-docusate sodium [Stimulant Laxative Plus] 8.6-50 mg Tablet 2 tab PO BID Qty: 0 0RF pantoprazole 40 mg Tablet,Delayed Release (Dr/Ec) 40 mg PO BID Qty: 0 0RF nystatin 100,000 unit/gram Powder 1 applic topical BID Qty: 0 0RF Protocol: *Topical Application Instructions APPLICATION INSTRUCTIONS: Apply to areas of redness sucralfate 1 gram Tablet 1 g PO BID@0700,1600 Qty: 0 0RF lorazepam 0.5 mg Tablet 0.5 mg PO Q4H PRN PRN (Reason: Anxiety/Restlessness/Sleep) 3 Days Qty: 18 0RF oxycodone 5 mg Tablet 5 - 10 mg PO Q4H PRN PRN (Reason: Pain Score 3-10) 3 Days Qty: 36 0RF Continued levothyroxine [Levoxyl] 50 MCG tablet 50 mcg PO DAILY Patient Comments: THYROID folic acid 1 mg Tablet 1 mg PO BREAKFAST 20 Days Qty: 0 0RF Discontinued losartan 100 MG tablet 100 mg PO DAILY Patient Comments: take 1 tablet by mouth once daily amlodipine 5 MG tablet 5 mg PO DAILY cholecalciferol (vitamin D3) 1,000 UNIT tablet 1,000 unit PO DAILY atenolol 50 mg Tablet 50 mg PO DAILY@0800 30 Days Qty: 30 0RF oxycodone 5 mg Tablet 5 - 10 mg PO Q4H PRN PRN (Reason: Pain Score) Rx Instructions: take 1 tab for pain score, 3-5, take 2 tabs for pain score 6-10 ondansetron 4 mg tablet,disintegrating 4 mg PO Q6H PRN (Reason: nausea and vomiting) citalopram [Celexa] 10 mg tablet 10 mg PO DAILY lorazepam [Ativan] 0.5 mg tablet 0.5 mg PO Q4H PRN (Reason: anxiety) senna-docusate sodium Tablet 2 tab PO BID magnesium citrate [Citrate of Magnesia] Solution 300 ml PO DAILY PRN (Reason: constipation) acetaminophen 500 mg Tablet 1,000 mg PO Q8 Qty: 0 0RF aspirin 81 mg capsule 81 mg PO BIDCM Qty: 60 0RF Rx Instructions: Take for 4 weeks postoperatively. famotidine 20 mg Tablet 20 mg PO DAILY 30 Days Qty: 0 0RF hydroxyurea 500 mg capsule 1,000 mg PO MOTUTHFRSA Qty: 100 4RF Rx Instructions: does not take on wednesdays or sundays Referrals / Follow Up: Geo Rodriguez MD [Med Staff - Active Staff] - 12/01/24 10:00 am Dago Emery Chi, MD [Primary Care Provider] - 11/22/24 3:00 pm (new patient/hospital follow up) Disposition Disposition (needs filled in before D/C Order can be placed): NonSkilled NH/Intermed Care 11/24/24 1401 Cosigner Signature (if applicable): CC: Dr. Dago Emery MD ~ [facility]09-05-2025 [facility] Medical Records Department [address] [place] [address] Discharge Summary 11/24/24 1351 MR#: [id number] Acct: [id number] Name: BERNICE HASSAN Rep #: [id number] : 1945 79 From: Dago Emery MD PCP: Dr. Dago Emery MD Status:ADM IN Location: [place] [id number]- Providers Date of Admission: 10/21/24 Primary Care Physician: Dr. Dago Emery MD Consultations 10/31/24 07:27 Consult: Gastroenterology Routine Consulting Provider: [facility] Reason for Consult: Anemia, +Hemoccult. EMERGENT Consult: No MD Notified: Yes Date Notified: 10/31/24 Time Notified: 09:24 Method of Notification: Text Reason For Visit: ERAS,ROBOTIC ASSIST, L TOTAL KNEE ORTHOPLAST Diagnosis Discharge Diagnosis (1) Debility: Status: Acute Code(s): R53.81 - Other malaise (2) Status post total left knee replacement: Status: Acute Code(s): Z96.652 - Presence of left artificial knee joint (3) Essential (primary) hypertension: Status: Acute Code(s): I10 - Essential (primary) hypertension (4) Kidney stones: Status: Acute Code(s): N20.0 - Calculus of kidney (5) Myeloproliferative disorder: Status: Chronic Code(s): D47.1 - Chronic myeloproliferative disease (6) Hypothyroidism: Status: Chronic Code(s): E03.9 - Hypothyroidism, unspecified (7) Vitamin D deficiency: Status: Acute Code(s): E55.9 - Vitamin D deficiency, unspecified Plan 79 year old female with below past medical history hospitalized for left total knee replacement, removal left tibial nail, removal 4 interlocking screws 10/16/[address] Rodriguez, postoperative course complicated by acute left distal tibial fracture, nausea, vomiting, hypotension, constipation, admitted to TCU with debility, here for rehabilitation, strengthening, prior to discharge home alone. * Debility - PT/OT. * Pain - Tylenol 1000mg q8, Oxycodone 5-10mg q4 prn. * Bowel - senna/colace 2 tablets bid, Magnesium citrate 300mL daily prn. * Adult immunization - Administer pneumonia vaccine, covid vaccine, flu vaccine as appropriate. * DVT prophylaxis - Aspirin 81mg bid thru 11/18/2024. * Hypertension - Atenolol 25mg daily. * Vitamin D deficiency - D3 25mcg daily. * Gastric ulcer - Pantoprazole 40mg bid thru 01/30/2025, Sucralfate 1gm bid. * Folate deficiency - Folic acid 1mg daily. * Myeloproliferative disorder - Hydrea 1000mg 5 days/week. * Hypothyroidism - Levothyroxine 50mcg daily. * Nausea - Zofran 4mg q6 prn. * Skin irritation - Calmoseptine topical bid. * Tinea Corporis - Nystatin topical bid. * The following psychotropic medication is being started or the dose in being increased: Citalopram 20mg daily. Psychotropic medication therapy is indicated for a diagnosis of: Anxiety. In my professional judgement, medication is necessary because the resident???s symptoms cause significant distress to the resident or a danger to the resident or others. Evaluation for underlying causes including medical illness and pain has been considered. The benefits of the medication are felt to outweigh potential harm. Nonpharmacologic/behavior interventions have been attempted but have not been effective or nonpharmacologic interventions are contraindicated for this patient. Potential benefits and risks of treatment and alternatives have been reviewed with resident/family and the resident/family have accepted psychotropic medication treatment. Please see nursing documentation. The following psychotropic medication is being started or the dose in being increased: Lorazepam 0.5mg po q4 prn. Psychotropic medication therapy is indicated for a diagnosis of: Anxiety. In my professional judgement, medication is necessary because the resident???s symptoms cause significant distress to the resident or a danger to the resident or others. Evaluation for underlying causes including medical illness and pain has been considered. The benefits of the medication are felt to outweigh potential harm. Nonpharmacologic/behavior interventions have been attempted but have not been effective or nonpharmacologic interventions are contraindicated for this patient. Potential benefits and risks of treatment and alternatives have been reviewed with resident/family and the resident/family have accepted psychotropic medication treatment. Please see nursing documentation. Medications at Discharge Home Medications levothyroxine 50 mcg tablet (Levoxyl) 50 mcg PO DAILY thyroid 08/04/13 folic acid 1 mg tablet 1 mg PO BREAKFAST supplement 20 days #0 tabs 10/21/24 acetaminophen 500 mg tablet 1,000 mg (2 x 500 mg) PO Q6H PRN PRN Pain Score 1-10 #0 tabs 11/24/24 atenolol 25 mg tablet 25 mg PO DAILY@0800 #0 tabs 11/24/24 cholecalciferol (vitamin D3) 25 mcg (1,000 unit) tablet 25 mcg PO DAILY #0 tabs 11/24/24 citalopram 20 mg tablet 20 mg PO DAILY #0 ta (more content not included)... [facility]08-25-2025 Progress note Author Dago Emery [facility] Note Date/Time November 13, 2024 7: 55pm [facility] Medical Records Department [address] [place] [address] Progress Note - [facility] 11/13/241948 MR#: [id number] Acct: [id number] Name: BERNICE HASSAN Rep #:[id number] : 1945 79 From: Dago Emery MD PCP: Dr. Dago Emery MD Status:ADM I N Location: [place] [address] Subjective Subjective Patient seen, examined for regulatory visit. She has no new complaints. She issitting in recliner with her left leg elevated. She appears bored. She is resigned to going to [facility] once insurances cuts her. 11/01/2024 Dr. Webb EGD: Impression: - Normal esophagus. - Mild Schatzki ring. - Chronic gastritis. Biopsied. - Non-bleeding duodenal ulcer with no stigmata of bleeding. Biopsied. Objective Data Objective Data Vital Signs: Vital Signs Temp Pulse Resp BP Pulse Ox O2 Del Method 97.2 F L 72 17 129/55 H 96 Room Air 11/13/24 08:56 11/13/24 08:56 11/13/24 08:56 11/13/24 08:56 11/13/24 08:56 11/13/24 08:56 Oxygen Delivery Method Room Air Weight: 89.49 kg Body Mass Index (BMI) 32.8 Intake & Output: Intake and Output for Last 24 Hours 11/11/24 11/12/24 11/13/24 23:59 23:59 23:59 Intake Total 388 / 388 360 / 360 480 / 480 Balance 388 / 388 360 / 360 480 / 480 Lab / Micro Data 11/13/24 06:01 11/10/24 07:09 Labs: Laboratory Results - last 24 hr 11/13/24 06:01: Hgb 8.6 L, Hct 25.3 L Micro: Microbiology 11/13/24 05:16 Nasal Secretion SARS-CoV-2 Antigen (Rapid) - Final 11/11/24 05:04 Nasal Secretion SARS-CoV-2 Antigen (Rapid) - Final 11/09/24 05:42 Nasal Secretion SARS-CoV-2 Antigen (Rapid) - Final 10/31/24 03:40 Stool Stool Occult Blood (BREA) - Final Occult Blood Positive Physical Exam Const alert General Appearance: cooperative HEENT normocephalic Eyes PERRL and EOMs intact bilaterally Neck supple, no JVD and no carotid bruits Resp normal respiratory effort, normal air movement and clear to auscultation bilaterally Cardio regular rate and regular rhythm GI normal to inspection, nondistended, normoactive bowel sounds, non-tender and non-distended Extremity normal capillary refill Extremity Narrative: Left lower extremity cast. General Extremity: Negative for edema Skin no rashes or lesions noted General Skin Exam: no breakdown Psych affect normal Appearance: appropriate Assessment & Plan Assessment/Plan (1) Debility: (2) Status post total left knee replacement: (3) Essential (primary) hypertension: (4) Kidney stones: (5) Myeloproliferative disorder: (6) Hypothyroidism: (7) Vitamin D deficiency: PLAN: Plan 79 year old female with below past medical history hospitalized for left total knee replacement, removal left tibial nail, removal 4 interlocking screws 10/16/[address] Rodriguez, postoperative course complicated by acute left distaltibial fracture, nausea, vomiting, hypotension, constipation, admitted to TCU with debility, here for rehabilitation, strengthening, prior to discharge home alone. * Debility - PT/OT. * Pain - Tylenol 1000mg q8, Oxycodone 5-10mg q4 prn. * Bowel - senna/colace 2 tablets bid, Magnesium citrate 300mL daily prn. * Adult immunization - Administer pneumonia vaccine, covid vaccine, flu vaccine as appropriate. * DVT prophylaxis - Aspirin 81mg bid thru 11/18/2024. * Hypertension - Atenolol 25mg daily. * Vitamin D deficiency - D3 25mcg daily. * Gastric ulcer - Pantoprazole 40mg bid thru 01/30/2025, Sucralfate 1gm bid. * Folate deficiency - Folic acid 1mg daily. * Myeloproliferative disorder - Hydrea 1000mg 5 days/week. * Hypothyroidism - Levothyroxine 50mcg daily. * Nausea - Zofran 4mg q6 prn. * Skin irritation - Calmoseptine topical bid. * Tinea Corporis - Nystatin topical bid. * The following psychotropic medication is being started or the dose in being increased: Citalopram 20mg daily. Psychotropic medication therapy is indicated for a diagnosis of: Anxiety. In my professional judgement, medication is necessary because the resident?s symptoms cause significant distress to the resident or a danger to the resident or others. Evaluation for underlying causes including medical illness and pain has been considered. The benefits of the medication are felt to outweigh potential harm. Nonpharmacologic/behavior interventions have been attempted but have not been effective or nonpharmacologic interventions are contraindicated for this patient. Potential benefits and risks of treatment and alternatives have been reviewed with resident/family and the resident/family have accepted psychotropic medication treatment. Please see nursing documentation. The following psychotropic medication is being started or the dose in being increased: Lorazepam 0.5mg po q4 prn. Psychotropic medication therapy is indicated for a diagnosis of: Anxiety. In my professional judgement, medication is necessary because the resident?s symptoms cause significant distress to the resident or a danger to the resident or others. Evaluation for underlying causes including medical illness and pain has been considered. The benefits of the medication are felt to outweigh potential harm. Nonpharmacologic/behavior interventions have been attempted but have not been effective or nonpharmacologic interventions are contraindicated for this patient. Potential benefits and risks of treatment and alternatives have been reviewed with resident/family and the resident/family have accepted psychotropic medication treatment. Please see nursing documentation. 11/13/241954 <Electronically signed by Dago Emery MD> Cosigner Signature (if applicable): CC: ~ Signed [facility] Work Phone: [phone]) 499-152108-25-2025 Progress note [facility] Medical Records Department [address] [place] [address] Progress Note - [facility] 11/13/241948 MR#: [id number] Acct: [id number] Name: BERNICE HASSAN Rep #:[id number] : 1945 79 From: Dago Emery MD PCP: Dr. Dago Emery MD Status:ADM I N Location: [place] [address] Subjective Subjective Patient seen, examined for regulatory visit. She has no new complaints. She issitting in recliner with her left leg elevated. She appears bored. She is resigned to going to [facility] once insurances cuts her. 11/01/2024 Dr. Webb EGD: Impression: - Normal esophagus. - Mild Schatzki ring. - Chronic gastritis. Biopsied. - Non-bleeding duodenal ulcer with no stigmata of bleeding. Biopsied. Objective Data Objective Data Vital Signs: Vital Signs Temp Pulse Resp BP Pulse Ox O2 Del Method 97.2 F L 72 17 129/55 H 96 Room Air 11/13/24 08:56 11/13/24 08:56 11/13/24 08:56 11/13/24 08:56 11/13/24 08:56 11/13/24 08:56 Oxygen Delivery Method Room Air Weight: 89.49 kg Body Mass Index (BMI) 32.8 Intake & Output: Intake and Output for Last 24 Hours 11/11/24 11/12/24 11/13/24 23:59 23:59 23:59 Intake Total 388 / 388 360 / 360 480 / 480 Balance 388 / 388 360 / 360 480 / 480 Lab / Micro Data 11/13/24 06:01 11/10/24 07:09 Labs: Laboratory Results - last 24 hr 11/13/24 06:01: Hgb 8.6 L, Hct 25.3 L Micro: Microbiology 11/13/24 05:16 Nasal Secretion SARS-CoV-2 Antigen (Rapid) - Final 11/11/24 05:04 Nasal Secretion SARS-CoV-2 Antigen (Rapid) - Final 11/09/24 05:42 Nasal Secretion SARS-CoV-2 Antigen (Rapid) - Final 10/31/24 03:40 Stool Stool Occult Blood (BREA) - Final Occult Blood Positive Physical Exam Const alert General Appearance: cooperative HEENT normocephalic Eyes PERRL and EOMs intact bilaterally Neck supple, no JVD and no carotid bruits Resp normal respiratory effort, normal air movement and clear to auscultation bilaterally Cardio regular rate and regular rhythm GI normal to inspection, nondistended, normoactive bowel sounds, non-tender and non-distended Extremity normal capillary refill Extremity Narrative: Left lower extremity cast. General Extremity: Negative for edema Skin no rashes or lesions noted General Skin Exam: no breakdown Psych affect normal Appearance: appropriate Assessment & Plan Assessment/Plan (1) Debility: (2) Status post total left knee replacement: (3) Essential (primary) hypertension: (4) Kidney stones: (5) Myeloproliferative disorder: (6) Hypothyroidism: (7) Vitamin D deficiency: PLAN: Plan 79 year old female with below past medical history hospitalized for left total knee replacement, removal left tibial nail, removal 4 interlocking screws 10/16/[address] Rodriguez, postoperative course complicated by acute left distaltibial fracture, nausea, vomiting, hypotension, constipation, admitted to TCU with debility, here for rehabilitation, strengthening, prior to discharge home alone. * Debility - PT/OT. * Pain - Tylenol 1000mg q8, Oxycodone 5-10mg q4 prn. * Bowel - senna/colace 2 tablets bid, Magnesium citrate 300mL daily prn. * Adult immunization - Administer pneumonia vaccine, covid vaccine, flu vaccine as appropriate. * DVT prophylaxis - Aspirin 81mg bid thru 11/18/2024. * Hypertension - Atenolol 25mg daily. * Vitamin D deficiency - D3 25mcg daily. * Gastric ulcer - Pantoprazole 40mg bid thru 01/30/2025, Sucralfate 1gm bid. * Folate deficiency - Folic acid 1mg daily. * Myeloproliferative disorder - Hydrea 1000mg 5 days/week. * Hypothyroidism - Levothyroxine 50mcg daily. * Nausea - Zofran 4mg q6 prn. * Skin irritation - Calmoseptine topical bid. * Tinea Corporis - Nystatin topical bid. * The following psychotropic medication is being started or the dose in being increased: Citalopram 20mg daily. Psychotropic medication therapy is indicated for a diagnosis of: Anxiety. In my professional judgement, medication is necessary because the resident?s symptoms cause significant distress to the resident or a danger to the resident or others. Evaluation for underlying causes including medical illness and pain has been considered. The benefits of the medication are felt tooutweigh potential harm. Nonpharmacologic/behavior interventions have been attempted but have not been effective or nonpharmacologic interventions are contraindicated for this patient. Potential benefits and risks of treatment and alternatives have been reviewed with resident/family and the resident/family have accepted psychotropic medication treatment. Please see nursing documentation. The following psychotropic medication is being started or the dose in being increased: Lorazepam 0.5mg po q4 prn. Psychotropic medication therapy is indicated for a diagnosis of: Anxiety. In my professional judgement, medication is necessary because the resident?s symptoms cause significant distress to the resident or a danger to the resident or others. Evaluation for underlying causes including medical illness and pain has been considered. The benefits of the medication are felt tooutweigh potential harm. Nonpharmacologic/behavior interventions have been attempted but have not been effective or nonpharmacologic interventions are contraindicated for this patient. Potential benefits and risks of treatment and alternatives have been reviewed with resident/family and the resident/family have accepted psychotropic medication treatment. Please see nursing documentation. 11/13/241954 Cosigner Signature (if applicable): CC: ~ Signed [facility]08-15-2025 Radiology Diagnostic study note [facility] Imaging Services [address], [place] [id number] Ankle min 3 Views MR#: [id number] Acct: [id number] Name: BERNICE HASSAN Rep #: [id number] : 1945 F 79 From: Lynda Batres MD PCP: Dr. Dago Emery MD Status: ADM I N Study:Ankle min 3 Views Date of Exam: Exam# [id number] Ordering Dr: Grayson Rodriguez MD PROCEDURE: ANKLE MIN 3 VIEWS 11/03/2024 REASON FOR EXAM: PAIN TECHNIQUE: ANKLE MIN 3 VIEWS Laterality: Left COMPARISON: X-ray left ankle 10/17/2024 FINDINGS: Bones: Old healed fracture deformity of distal fibula. Redemonstration of mildly displaced fracturedeformity of distal tibia with overlying cast. There is persistent mildly displaced fracture deformity ofdistal tibial metadiaphysis. Calcaneal spurs are visualized. Diffuse osteopenia of visualized bones. Joints: Degenerative changes of visualized ankle joint. Soft tissues: Soft tissue swelling overlying ankle joint. RAD/Ankle min 3 Views IMPRESSION: Mildly displaced fracture deformity of distal tibial metaphysis with partial healing and minimal callus formation with overlying cast. Old healed fracture deformity of distal fibula. Reading Location: [facility] CC: Dr. Geo Rodriguez MD; Dr. Dago Emery MD ~ Loss Prevention Consultant: Signed [facility]08-13-2025 Consult note [facility] Medical Records Department [address] [place] [address] Anesthesia Postop Eval II 11/01/24 1633 MR#: [id number] Acct: [id number] Name: BERNICE HASSAN Rep #:[id number] : 1945 79 From: Dinorah Headley CRNA PCP: Dr. Dago Emery MD Status:REG S DC Y Race: C Location: [place] [address] Anesthesia Postop Eval I Sum Postop Eval Completion status Anesthesia document: Postop Eval 1 completed: Yes Anesthesia Postop Eval I Summary Anesthesia Postop Eval I Summary: Anesthesia Postop Eval I: Assessment Summary Airway patent Yes 11/01/24 16:13 [email or web address] Spontaneous unlabored Yes 11/01/24 16:13 [email or web address] respirations Mental status Awake,Calm 11/01/24 16:13 [email or web address] nausea No 11/01/24 16:13 [email or web address] Vomiting No 11/01/24 16:13 [email or web address] Anesthesia Postop Eval I: Fluid Summary Crystalloid volume administer 200 11/01/24 16:13 [email or web address] (ml) Colloids volume administered ( ml) Blood Product volume administered (ml) Total IV fluid infused 200 11/01/24 16:13 [email or web address] Anesthesia Postop Eval I: Summary Notes Anesthesia Complication No 11/01/24 16:13 [email or web address] Anesthesia Complication Comment: Post-operative progress note Anesthesia: Postop Eval II Evaluation Mental status: Awake Pain Level: 0 nausea: No Vomiting: No 11/01/24 1633 a PHOTOGRAPHY SPOTTER> Date _ Dinorah ca PHOTOGRAPHY SPOTTER Cosigner Signature: Date CC: ~ Signed [facility]08-13-2025 Procedure note [facility] Medical Records Department [address] [place] [address] EGD Report MR#: [id number] Acct: [id number] Name: BERNICE HASSAN Rep #:[id number] : 1945 79 From: Pio Webb DO PCP: Dr. Dago Emery MD Status:REG S DC Patient Name: Bernice Hassan Procedure Date: 11/01/2024 3:55 PM Date of : 1945 Age: 79 Procedure: Upper GI endoscopy Indications: Acute post hemorrhagic anemia, Iron deficiency anemia, Heme positive stool, Recent gastrointestinal bleeding Providers: Pio Webb DO Medicines: Monitored Anesthesia Care Patient Profile: This is an 79 year old female. Refer to note in patient chart for documentation of history and physical. Patient has symptoms. Complications: No immediate complications. Procedure: Pre-Anesthesia Assessment: - Prior to the procedure, a History and Physical was performed, and patient medications and allergies were reviewed. The patient is competent. The risks and benefits of the procedure and the sedation options and risks were discussed with the patient. All questions were answered and informed consent was obtained. Patient identification and proposed procedure were verified by the physician in the pre-procedure area. Mental Status Examination: alert and oriented. Airway Examination: normal oropharyngeal airway and neck mobility. Respiratory Examination: clear to auscultation. CV Examination: normal. ASA Grade Assessment: III - A patient with severe systemic disease. After reviewing the risks and benefits, the patient was deemed in satisfactory condition to undergo the procedure. The anesthesia plan was to use monitored anesthesia care (MAC). Immediately prior to administration of medications, the patient was re-assessed for adequacy to receive sedatives. The heart rate, respiratory rate, oxygen saturations, blood pressure, adequacy of pulmonary ventilation, and response to care were monitored throughout the procedure. The physical status of the patient was re-assessed after the procedure. After obtaining informed consent, the endoscope was passed under direct vision. Throughout the procedure, the patient's blood pressure, pulse, and oxygen saturations were monitored continuously. The gastroscope was introduced through the mouth, and advanced to the fourth part of the duodenum. Small bowel enteroscopy was deemed necessary. The upper GI endoscopy was accomplished without difficulty. The patient tolerated the procedure well. Scope In: 4:02:30 PM Scope Out: 4:05:27 PM Total Procedure Duration Time 0 hours 2 minutes 57 seconds Findings: The examined esophagus was normal. A mild Schatzki ring was found at the gastroesophageal junction. Patchy moderate inflammation characterized by serpentine ulcerations was found in the gastric body and in the gastric antrum. Biopsies were taken with a cold forceps for histology. Verification of patient identification for the specimen was done. Estimated blood loss was minimal. Biopsies were taken with a cold forceps for Helicobacter pylori testing. Verification of patient identification for the specimen was done. Estimated blood loss was minimal. One non-bleeding cratered duodenal ulcer with no stigmata of bleeding was found in the first portion of the duodenum. The lesion was 25 mm in largest dimension. Biopsies were taken with a cold forceps for histology. Verification of patient identification for the specimen was done. Estimated blood loss was minimal. Impression: - Normal esophagus. - Mild Schatzki ring. - Chronic gastritis. Biopsied. - Non-bleeding duodenal ulcer with no stigmata of bleeding. Biopsied. Recommendation: - Return patient to referring hospital for ongoing care. - Resume previous diet. - Use Protonix (pantoprazole) 40 mg PO BID for 3 months. - Use sucralfate tablets 1 gram PO BID for 1 month. - Continue present medications. Procedure Code(s): --- Professional --- 14048, Small intestinal endoscopy, enteroscopy beyond second portion of duodenum, not including ileum; with biopsy, single or multiple CPT copyright 2021 [employer]. All rights reserved. The codes documented in this report are preliminary and upon computed tomography technologist review may be revised to meet current compliance requirements. Pio Webb DO 11/01/2024 4:13:52 PM This report has been signed electronically. Number of Addenda: 0 Note Initiated On: 11/01/2024 3:55 PM 11/01/24 1614 Date _ Pio Webb DO Cosigner Signature: Date (if indicated) CC: Dr. Dago Emery MD; Pio Webb DO ~ Date Dictated: 11/01/24 1555 Date Transcribed: Loss Prevention Consultant: RF Signed [facility]08-13-2025 Procedure note [facility] Medical Records Department [address] [address] Provation Physician Letter MR#: [id number] Acct: [id number] Name: BERNICE HASSAN Rep #:[id number] : 1945 79 From: Pio Webb DO PCP: Dr. Dago Emery MD Status:REG S DC 11/01/2024 Dago Emery MD [address] [place] [address] Re : Upper GI endoscopy procedure for Bernice Rodriguezs Dear Dr. Emery This procedure was performed on Friday, November 01, 2024. My impressions and recommendations are as follows: Impressions : - Normal esophagus. - Mild Schatzki ring. - Chronic gastritis. Biopsied. - Non-bleeding duodenal ulcer with no stigmata of bleeding. Biopsied. Recommendations : - Return patient to referring hospital for ongoing care. - Resume previous diet. - Use Protonix (pantoprazole) 40 mg PO BID for 3 months. - Use sucralfate tablets 1 gram PO BID for 1 month. - Continue present medications. My findings are described in the full procedure note, which is enclosed. If I can be of further assistance, please feel free to contact me at . Sincerely, Pio Webb DO 11/01/2024 4:13:52 PM This report has been signed electronically. 11/01/24 1614 Date _ Pio Webb DO Cosigner Signature: Date (if indicated) CC: Dr. Dago Emery MD; Pio Webb DO ~ Date Dictated: 11/01/245 Date Transcribed: Loss Prevention Consultant: RF Signed [facility]08-13-2025 Consult note [facility] Medical Records Department [address] [place] [address] Anesthesia Postop Eval I 11/01/241612 MR#: [id number] Acct: [id number] Name: BERNICE HASSAN Rep #:[id number] : 1945 79 From: Franklyn CHAMBERS PCP: Dr. Dago Emery MD Status:REG S DC Y Race: C Location: [place] [address] Anesthesia: Postop Eval I Current Vital Signs Temperature: 97.9 F Pulse Rate: 55 Blood Pressure: 117/53 Respiratory Rate: 14 Pulse Ox: 97 Oxygen Delivery Method: Room Air Assessment Airway patent: Yes Spontaneous unlabored respirations: Yes Mental status: Awake and Calm nausea: No Vomiting: No Anesthesia Complication: No Fluid Hydration Crystalloid volume administer (ml): 200 Total IV fluid infused: 200 Progress Note Anesthesia document: Postop Eval 1 completed: Yes 11/01/24 161 PHOTOGRAPHY SPOTTER> Date _ Franklyn Lopez CRNA Cosigner Signature: Date CC: ~ Signed [facility]08-13-2025 Consult note [facility] Medical Records Department [address] [place] [address] Pre-Anesthesia Evaluation 11/01/24 1539 MR#: [id number] Acct: [id number] Name: BERNICE HASSAN Rep #:[id number] : 1945 79 From: Avery Crocker PCP: Dr. Dago Emery MD Status:REG S DC Y Race: C Location: [place] [address] ASA Classification* ASA Classification ASA Classification: 3 Assessment & Plan Anesthesia* Anesthesia Assessment Anesthesia [...] anesthesia risk assessments. Anesthesia Type Anesthesia Type: MAC History Source History Obtained from:: Patient and Chart Anesthesia Focused Assessment* Temperature: 99 F Pulse Rate: 61 Blood Pressure: 170/74 Respiratory Rate: 16 Pulse Ox: 96 Oxygen Delivery Method: Room Air Airway Assessment Mouth opens: >3 cm Mallampati Score: II Teeth Condition: Caps/Crowns and Missing Neck Range of motion (ROM): Limited ROM Labs Anesthesia Preop lab: CBC WBC 4.7 K/mm3 (4.4-11.0) 10/27/24 05:29 10/27/24 RBC 2.16 M/mm3 (4.2-5.4) L 10/27/24 05:29 10/27/24 Hgb 8.4 g/dL (12.0-15.0) L 10/31/24 06:55 10/31/24 Hct 24.8 % (37-47) L 10/31/24 06:55 10/31/24 Plt Count 230 K/mm3 (150-450) 10/27/24 05:29 10/27/24 CHEMISTRY Potassium 4.5 mmol/L (3.3-5.1) 10/27/24 05:29 10/27/24 Sodium 133 mmol/L (133-145) 10/27/24 05:29 10/27/24 Magnesium 2.3 mg/dL (1.5-2.2) H 07/31/24 14:22 07/31/24 BUN 28 mg/dL (4-19) H 10/27/24 05:29 10/27/24 Creatinine 1.16 mg/dL (0.70-1.20) 10/27/24 05:10/27/24 Glucose 85 mg/dL (70-99) 10/27/24 05:29 10/27/24 POC Glucose 120 mg/dL (74-106) H 10/19/24 12:59 10/19/24 TSH 1.470 uIU/mL (0.300-4.200) 07/31/24 14:22 07/20 05/16 COAG PT 12.6 SECONDS (11.7-14.9) 07/31/24 14:22 Pre-Assessment Diagnosis/Proposed Procedure Planned Operative Procedure(s): EGD Anesthesia History Anesthesia History - box car bracer: Anesthesia History - box car bracer Hx Hospitalization Yes 11/01/24 15:07 Any Problems With Anesthesia No 11/01/24 15:07 Cholinesterase deficiency No 11/01/24 15:07 You/Your Family Experience No 11/01/24 15:07 fever (hyperthermia) with Relationship Recent Exposure to Contagious No 11/01/24 15:07 Disease Does patient have nerve No 11/01/24 15:07 stimulator Patient instructed to have device shut off --Does patient have Pacemaker No 11/01/24 15:07 or ICD? When Was Last Pacemaker Check QUESTION #4 FULL TEXT: You/Your Family Experience fever (hyperthermia) with Anesthesia Last Oral Intake Last Oral intake: Last Oral Intake NPO since Meds taken in AM with sips of water? Meds patient instructed to take am of surgery PONV PONV - box car bracer: PONV - box car bracer Female Yes 11/01/24 15:07 HX of Motion Sickness No 11/01/24 15:07 HX of N/V After Surgery Yes 11/01/24 15:07 Non-Smoker Yes 11/01/24 15:07 Duration of Surgery greater No 11/01/24 15:07 than 60 minutes Number of Risk Factors 3 11/01/24 15:07 PONV Score Moderate Risk 11/01/24 15:07 Height & Weight Height & Weight: Anesthesia: Height & Weight Height 5 ft 5 in 11/01/24 15:07 Weight: 88.904 kg 11/01/24 15:07 Body Mass Index (BMI) 32.5 11/01/24 15:07 Respiratory Assessment Respiratory Assessment - box car bracer: Respiratory Tract Infection Hx - box car bracer Hx Respiratory Tract Infection No 11/01/24 15:07 STOP Sleep Apnea STOP Sleep Apnea - box car bracer: STOP Sleep Apnea - box car bracer Hx Hypertension Yes 11/01/24 15:07 Hx Sleep Apnea No 11/01/24 15:07 CPAP No 10/16/24 18:35 BIPAP No 10/04/24 13:47 Do you snore loudly (louder No 11/01/24 15:07 than talking or can be heard Do you often feel tired/ No 11/01/24 15:07 fatigued/ sleepy during daytime? Has anyone observed you stop No 11/01/24 15:07 breathing during sleep? STOP Results Negative 11/01/24 15:07 QUESTION #5 FULL TEXT : Do you snore loudly (louder than talking or can be heard through closeddoors)? Tobacco Use History Tobacco Use History - box car bracer: Tobacco Use History - box car bracer Tobacco Use Smoking Status Never smoker 11/01/24 15:07 Hx Tobacco Use No 11/01/24 15:07 Years Smoking Packs Smoked per Day Smoking Cessation Date was within the last 15 years Hx Smoking Cessation Date Hx Smoking Cessation Counseling Hematologic Medial History Hematologic Hx - box car bracer: Hematologic Medical Hx - ear flap binder Hx of Blood Transfusion No 11/01/24 15:07 Hx of Transfusion in last 3 No 11/01/24 15:07 Months Date of Last Transfusion (if within last 3 months) Ever experience any problems No 11/01/24 15:07 with transfusion(s)? Specify any problems Hx of Preganancy in last 3 No 11/01/24 15:07 Months Nurse Filling Out Transfusion [email or web address] 11/01/24 15:07 & Questions: Date: 11/01/24 11/01/24 15:07 Time: 15:09 11/01/24 15:07 Patient unable to answer at this time (ie. confused, unrespo /Reproduction History /Reproductive History - box car bracer: /Reproductive Hx- box car bracer Hx Now Gestational Age (in weeks): EDC: Hx Hx Para Hx Section SAB No 10/04/24 13:47 Active Medications Active Medications: Current Medications Generic Name Dose Route Start Last Admin Trade Name Freq PRN Reason Stop Dose Admin Lactated Ringer's 1,000 mls @ 15 mls/hr 11/01/24 15:00 11/01/24 15:19 IV 15 mls/hr .Q48H KENDRA Administration PFSH Medical History Cardiology follow-up encounter Wears [...] mcg tablet 50 mcg PO DAILY thyroid 10/31/24 History (Levoxyl) losartan 100 mg tablet 100 mg PO DAILY bp 06/06/18 11/01/24 History amlodipine 5 mg tablet 5 mg PO DAILY bp 07/21/18 History cholecalciferol (vitamin D3) 25 1,000 unit PO DAILY pravin michael 10/26/19 10/31/24 History mcg (1,000 unit) tablet atenolol 50 mg tablet 50 mg PO DAILY@0800 blood 11/01/24 Rx pressure/heart rate 30 days #30 tabs hydroxyurea 500 mg capsule 1,000 mg (2 x 500 mg) PO 10/31/24 Rx MOTUTHFRSA chemo #100 caps acetaminophen 500 mg tablet 1,000 mg (2 x 500 mg) PO Q 8 pain 10/21/24 10/31/24 Rx #0 tabs aspirin 81 mg capsule 81 mg PO BIDCM blood thinner #60 10/21/24 10/31/24 Rx caps famotidine 20 mg tablet 20 mg PO DAILY stomach 30 da ys #0 10/21/24 11/01/24 Rx tabs folic acid 1 mg tablet 1 mg PO BREAKFAST supplement 20 10/21/24 10/31/24 Rx days #0 tabs oxycodone 5 mg tablet 5 - 10 mg PO Q4H PRN PRN Lukas n Score 10/21/24 11/01/24 History citalopram 10 mg tablet (Celexa) 10 mg PO DAILY 11/01/24 History lorazepam 0.5 mg tablet (Ativan) 0.5 mg PO Q4H PRN anx iety 11/01/24 10/31/24 History magnesium citrate (Citrate of 300 ml PO DAILY PRN cons tipation 11/01/24 Unknown History Magnesia oral) ondansetron 4 mg disintegrating 4 mg PO Q6H PRN nausea and vomiting 11/01/24 10/31/24 History tablet senna-docusate sodium tablet 2 tab PO BID 11/01/2403/15 History Allergy/AdvReac Type Severity Reaction Status Date / Time promethazine HCl (From Allergy Severe Other Verified 11/01/24 15:06 Phenergan) Penicillins AdvReac Severe Swelling Verified 11/01/24 15:06 red dye AdvReac Severe Unknown Verified 11/01/24 15:06 Tetanus Vaccines and Toxoid AdvReac Intermediate NEEDS Verified 11/01/24 15:06 FOLLOW-UP Family History Father Rheumatoid arthritis Surgical History History of total left knee replacement History of total right knee replacement Hx of right cataract extraction Hx of left cataract extraction History of breast lump removal History of hip surgery Social History household members: none housing: condominium Smoking Status: Never smoker second hand exposure: No alcohol intake: never substance use type: does not use justice/sikh: Adventist seatbelt use: always do you feel safe at home: Yes Review of Systems (Anesthesia) ROS Narrative System reviewed and no additional complaints, except as documented. 11/01/24 1603 > Date _ Avery Rod MD Cosigner Signature: Date CC: ~ Signed [facility]08-13-2025 History and physical note [facility] Medical Records Department [address] [place] [address] History & Physical Exam 11/01/24 1523 MR#: [id number] Acct: [id number] Name: BERNICE HASSAN Rep #:[id number] : 1945 79 From: Pio Webb DO PCP: Dr. Dago Emery MD Status:REG S [place] Location: [place] [address] HPI - General General Date of Admission: 11/01/24 Date of Service: 11/01/24 Chief Complaint: Anemia HPI Narrative BERNICE HASSAN, is a 79 F who presents for: Anemia She currently is currently in rehab. She has a medical history notable for morbid obesity, hypertension, dyslipidemia, disabling degenerative joint diseaseof the lower extremities presenting with an abnormal CBC notably persistent thrombocytosis. She has no known chronic infectious or inflammatory d iseases. 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 She is currently taking hydroxyurea and [address] Rodriguez performed left total knee replacement, removal left tibial nail, removal of 4 interlocking screws. All postoperative course has been complicatedby an acute distal tibial fracture. She remains on aspirin therapy and startingon doxycycline. I was asked to see her due to decreasing hemoglobin A1c providewith stools. Patient states she has had colonoscopy as part of recently but thelast 5 years. [facility] Medical History Cardiology follow-up encounter Wears glasses [...] mcg tablet 50 mcg PO DAILY thyroid 10/31/24 History (Levoxyl) losartan 100 mg tablet 100 mg PO DAILY bp 06/06/18 11/01/24 History amlodipine 5 mg tablet 5 mg PO DAILY bp 07/21/18 History cholecalciferol (vitamin D3) 25 1,000 unit PO DAILY pravin michael 10/26/19 10/31/24 History mcg (1,000 unit) tablet atenolol 50 mg tablet 50 mg PO DAILY@0800 blood 11/01/24 Rx pressure/heart rate 30 days #30 tabs hydroxyurea 500 mg capsule 1,000 mg (2 x 500 mg) PO 10/31/24 Rx MOTUTHFRSA chemo #100 caps acetaminophen 500 mg tablet 1,000 mg (2 x 500 mg) PO Q 8 pain 10/21/24 10/31/24 Rx #0 tabs aspirin 81 mg capsule 81 mg PO BIDCM blood thinner #60 10/21/24 10/31/24 Rx caps famotidine 20 mg tablet 20 mg PO DAILY stomach 30 da ys #0 10/21/24 11/01/24 Rx tabs folic acid 1 mg tablet 1 mg PO BREAKFAST supplement 20 10/21/24 10/31/24 Rx days #0 tabs oxycodone 5 mg tablet 5 - 10 mg PO Q4H PRN PRN Lukas n Score 10/21/24 11/01/24 History citalopram 10 mg tablet (Celexa) 10 mg PO DAILY 11/01/24 History lorazepam 0.5 mg tablet (Ativan) 0.5 mg PO Q4H PRN anx iety 11/01/24 10/31/24 History magnesium citrate (Citrate of 300 ml PO DAILY PRN cons tipation 11/01/24 Unknown History Magnesia oral) ondansetron 4 mg disintegrating 4 mg PO Q6H PRN nausea and vomiting 11/01/24 10/31/24 History tablet senna-docusate sodium tablet 2 tab PO BID 11/01/2403/15 History Allergy/AdvReac Type Severity Reaction Status Date / Time promethazine HCl (From Allergy Severe Other Verified 11/01/24 15:06 Phenergan) Penicillins AdvReac Severe Swelling Verified 11/01/24 15:06 red dye AdvReac Severe Unknown Verified 11/01/24 15:06 Tetanus Vaccines and Toxoid AdvReac Intermediate NEEDS Verified 11/01/24 15:06 FOLLOW-UP Family History Father Rheumatoid arthritis Surgical History History of total left knee replacement History of total right knee replacement Hx of right cataract extraction Hx of left cataract extraction History of breast lump removal History of hip surgery Social History [facility] members[facility] Smoking Status: Never smoker second hand exposure: No alcohol intake: never substance use type: does not use justice/sikh: Adventist seatbelt use: always do you feel safe at home: Yes ROS Constitutional Constitutional: Denies fatigue, fever(s), poor appetite, weight gain or weight loss Gastrointestinal Gastrointestinal: Denies belching, bloating, change in bowel habits, change in stool character, chewing difficulty, coffee ground emesis, constipation, cramping, diarrhea, dyspepsia, dysphagia, earlysatiety, excessive flatus, fecalincontinence, heartburn, hematemesis, hematochezia, hemorrhoids, loose stools, melena, nausea, odynophagia, rectal bleeding, tenesmus, vomiting or weight changes Vital Signs Vital Signs Vital Signs: 11/01/24 15:07 11/01/24 15:07 Temperature 99 F Temperature Source Temporal Pulse Rate 61 Respiratory Rate 16 Respiratory Pattern Normal Blood Pressure 170/74 H Blood Pressure Mean 106 Blood Pressure Source Monitor Blood Pressure Position Semi-Fowlers Blood Pressure Location Right Arm Pulse Ox 96 Oxygen Delivery Method Room Air Weight Weight: 196 lb Body Mass Index (BMI) 32.5 Physical Exam Const alert, oriented x3, no apparent distress and healthy appearing General Appearance: cooperative GI normal to inspection, nondistended, normoactive bowel sounds, soft to palpation,non-tender and non-distended Percussion: normal to percussion Rectal Exam: deferred Assessment & Plan Assessment/Plan (1) Anemia: PLAN: Labs: Laboratory Results - last 24 hr 10/31/24 06:55: Hgb 8.4 L, Hct 24.8 L Micro: Microbiology 10/31/24 03:40 Stool Stool Occult Blood (BREA) - Final Occult Blood Positive Assessment & Plan Assessment/Plan (1) Anemia: PLAN: 79-year-old with essential thrombocythemia on hydroxyurea and aspirin status post right knee replacement and ankle fracture. She currently is possibly having acute bloodloss anemia. She should undergo an upper endoscopy and is a colonoscopy for acute GI blood loss. She was explained alternatives, benefits, risks including not withstanding bleeding, infection, sepsis, perforation, need for surgery and . She will have an ASA 3. 11/01/24 1526 Cosigner Signature (if applicable): CC: Dr. Dago Emery MD; Pio Webb DO~ Signed [facility]08-13-2025 [facility] Medical Records Department [address] [place] [address] History Physical Exam 11/01/24 1523 MR#: [id number] Acct: [id number] Name: BERNICE HASSAN Rep #: [id number] : 1945 79 From: Pio Webb DO PCP: Dr. Dago Emery MD Status:[facility] Location: [place] [address] HPI - General General Date of Admission: 11/01/24 Date of Service: 11/01/24 Chief Complaint: Anemia HPI Narrative BERNICE HASSAN, is a 79 F who presents for: Anemia She currently is currently in rehab. 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 She has no known chronic infectious or inflammatory diseases. 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 She is currently taking hydroxyurea and [address] Rodriguez performed left total knee replacement, removal left tibial nail, removal of 4 interlocking screws. All postoperative course has been complicated by an acute distal tibial frac ture. She remains on aspirin therapy and starting on doxycycline. I was asked to see her due to decreasing hemoglobin A1c provide with stools. Patient states she has had colonoscopy as part of recently but the last 5 years. [facility] Medical History Cardiology follow-up encounter Wears glasses [...] 50 mcg PO DAILY thyroid 08/04/13 0 10/31/24 History (Levoxyl) losartan 100 mg tablet 100 mg PO DAILY bp 06/06/18 History amlodipine 5 mg tablet 5 mg PO DAILY bp 07/21/18 11/01/24 History cholecalciferol (vitamin D3) 25 1,000 unit PO DAILY bones 10/26/19 10/31/24 History mcg (1,000 unit) tablet atenolol 50 mg tablet 50 mg PO DAILY@0800 blood 10/09/22 11/01/24 Rx pressure/heart rate 30 days #30 tabs hydroxyurea 500 mg capsule 1,000 mg (2 x 500 mg) PO 10/02/24 10/31/24 Rx MOTUTHFRSA chemo #100 caps acetaminophen 500 mg tablet 1,000 mg (2 x 500 mg) PO Q8 pain 0 10/21/24 10/31/24 Rx #0 tabs aspirin 81 mg capsule 81 mg PO BIDCM blood thinner #60 0 10/21/24 10/31/24 Rx caps famotidine 20 mg tablet 20 mg PO DAILY stomach 30 days #0 10/21/24 11/01/24 Rx tabs folic acid 1 mg tablet 1 mg PO BREAKFAST supplement 20 10/31/24 Rx days #0 tabs oxycodone 5 mg tablet 5 - 10 mg PO Q4H PRN PRN Pain Scor e 10/21/24 11/01/24 History citalopram 10 mg tablet (Celexa) 10 mg PO DAILY 11/01/24 11/01/24 H istory lorazepam 0.5 mg tablet (Ativan) 0.5 mg PO Q4H PRN anxiety 11/01/24 10/31/24 History magnesium citrate (Citrate of 300 ml PO DAILY PRN constipation 0 11/01/24 Unknown History Magnesia oral) ondansetron 4 mg disintegrating 4 mg PO Q6H PRN nausea and vomitin g 11/01/24 10/31/24 History tablet senna-docusate sodium tablet 2 tab PO BID 11/01/24 10/31/24 His tory Allergy/AdvReac Type Severity Reaction Status Date / Time promethazine HCl (From Allergy Severe Other Verified 11/01/24 15:06 Phenergan) Penicillins AdvReac Severe Swelling Verified 11/01/24 15:06 red dye AdvReac Severe Unknown Verified 11/01/24 15:06 Tetanus Vaccines and Toxoid AdvReac Intermediate NEEDS Verified 11/01/24 15:06 FOLLOW-UP Family History Father Rheumatoid arthritis Surgical History History of total left knee replacement History of total right knee replacement Hx of right cataract extraction Hx of left cataract extraction History of breast lump removal History of hip surgery Social History household members: none housing: condominium Smoking Status: Never smoker second hand exposure: No alcohol intake: never substance use type: does not use justice/sikh: Adventist seatbelt use: always do you feel safe at home: Yes ROS Constitutional Constitutional: Denies fatigue, fever(s), poor appetite, weight gain or weight loss Gastrointestinal Gastrointestinal: Denies belching, bloating, change in bowel habits, change in stool character, chewing difficulty, coffee ground emesis, constipation, cramping, diarrhea, dyspepsia, dysphagia, early satiety, excessive flatus, fecal incontinence, (more content not included)...[facility]08-12-2025 Consult note Author Pio Webb [facility] Note Date/Time October 31, 2024 9: 58am [facility] Medical Records Department [address] [place] [address] Consultation - GI 10/31/24 0951 MR#: [id number] Acct: [id number] Name: BERNICE HASSAN Rep #:[id number] : 1945 79 From: Pio Webb DO PCP: Dr. Dago Emery MD Status:ADM I N Location: [place] [address] HPI Consult Data Date of Consult: 10/31/24 HPI Narrative Reason for Consultation: Anemia HPI Narrative: BERNICE HASSAN, is a 79 F who is currently in rehab. 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 She has no known chronic infectious or inflammatory diseases. 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 She is currently taking hydroxyurea and [address] Rodriguez performed left total knee replacement, removal left tibial nail, removal of 4 interlocking screws. All postoperative course has been complicatedby an acute distal tibial fracture. She remains on aspirin therapy and startingon doxycycline. I was asked to see her due to decreasing hemoglobin A1c providewith stools. Patient states she has had colonoscopy as part of recently but thelast 5 years. [facility] Medical History Cardiology follow-up encounter Wears glasses [...] mcg tablet 50 mcg PO DAILY thyroid 10/21/24 History (Levoxyl) losartan 100 mg tablet 100 mg PO DAILY bp 06/06/18 10/21/24 History amlodipine 5 mg tablet 5 mg PO DAILY bp 07/21/18 History cholecalciferol (vitamin D3) 25 1,000 unit PO DAILY pravin michael 10/26/19 10/21/24 History mcg (1,000 unit) tablet atenolol 50 mg tablet 50 mg PO DAILY@0800 blood 10/21/24 Rx pressure/heart rate 30 days #30 tabs hydroxyurea 500 mg capsule 1,000 mg (2 x 500 mg) PO 10/21/24 Rx MOTUTHFRSA chemo #100 caps acetaminophen 500 mg tablet 1,000 mg PO BID PRN inflam mation 10/04/24 10/21/24 History acetaminophen 500 mg tablet 1,000 mg (2 x 500 mg) PO Q 8 pain 10/21/24 10/21/24 Rx #0 tabs aspirin 81 mg capsule 81 mg PO BIDCM blood thinner #60 10/21/24 10/21/24 Rx caps doxycycline monohydrate 100 mg 100 mg PO BID antibioti c 10/21/24 10/21/24 History capsule famotidine 20 mg tablet 20 mg PO DAILY stomach 30 da ys #0 10/21/24 10/21/24 Rx tabs ferrous sulfate 325 mg (65 mg 325 mg PO 1200,1700 supp lement 20 10/21/24 10/20/24 Rx iron) tablet (FeroSul) days #0 tabs folic acid 1 mg tablet 1 mg PO BREAKFAST supplement 20 10/21/24 10/21/24 Rx days #0 tabs ondansetron HCl (PF) 4 mg/2 mL 4 mg (2 mL) IV Q6H PRN PRN 10/21/24 10/19/24 Rx injection solution Nausea/Vomiting 3 days #0 mL oxycodone 5 mg tablet 5 - 10 mg PO Q4H PRN PRN Lukas n Score 10/21/24 10/21/24 History polyethylene glycol 3350 17 17 g PO BID constipation # 119 grams 10/21/24 Unknown Rx gram/dose oral powder (Miralax) Allergy/AdvReac Type Severity Reaction Status Date / Time promethazine HCl (From Allergy Severe Other Verified 10/16/24 11:13 Phenergan) Penicillins AdvReac Severe Swelling Verified 10/16/24 11:13 red dye AdvReac Severe Unknown Verified 10/16/24 11:13 Tetanus Vaccines and Toxoid AdvReac Intermediate NEEDS Verified 10/16/24 11:13 FOLLOW-UP Family History Father Rheumatoid arthritis Surgical History History of total left knee replacement History of total right knee replacement Hx of right cataract extraction Hx of left cataract extraction History of breast lump removal History of hip surgery Social History household members: [facility] Smoking Status: Never smoker second hand exposure: No alcohol intake: never substance use type: does not use justice/sikh: Adventist seatbelt use: always do you feel safe at home: Yes ROS Constitutional Constitutional: Denies fatigue, fever(s), poor appetite, weight gain or weight loss Gastrointestinal Gastrointestinal: Denies belching, bloating, change in bowel habits, change in stool character, chewing difficulty, coffee ground emesis, constipation, cramping, diarrhea, dyspepsia, dysphagia, early satiety, excessive flatus, fecalincontinence, heartburn, hematemesis, hematochezia, hemorrhoids, loose stools, melena, nausea, odynophagia, rectal bleeding, tenesmus, vomiting or weight changes Physical Exam Const alert General Appearance: cooperative HEENT normocephalic Eyes PERRL and EOMs intact bilaterally Neck supple, no JVD and no carotid bruits Resp normal respiratory effort, normal air movement and clear to auscultation bilaterally Cardio regular rate and regular rhythm GI normal to inspection, nondistended, normoactive bowel sounds, non-tender and non-distended Extremity normal capillary refill Extremity Narrative: Left lower extremity dressed. General Extremity: Negative for edema Skin no rashes or lesions noted General Skin Exam: no breakdown Psych affect normal Appearance: appropriate Lab / Micro Data 10/31/24 06:55 10/27/24 05:29 Labs: Laboratory Results - last 24 hr 10/31/24 06:55: Hgb 8.4 L, Hct 24.8 L Micro: Microbiology 10/31/24 03:40 Stool Stool Occult Blood (BREA) - Final Occult Blood Positive Assessment & Plan Assessment/Plan (1) Anemia: PLAN: 79-year-old with essential thrombocythemia on hydroxyurea and aspirin status post right knee replacement and ankle fracture. She currently is possibly having acute blood loss anemia. She should undergo an upper endoscopy and is a colonoscopy for acute GI blood loss. She was explained alternatives, benefits, risks including not withstanding bleeding, infection, sepsis, perforation, need for surgery and . She will have an ASA 3. Charges/Coding Visit Charges Inpatient E&M: 80911 SNF Init L2 10/31/24 0958 <Electronically signed by Pio Friend > Cosigner Signature (if applicable): CC: Dr. Dago Emery MD~ Signed [facility] Work Phone: 1(411) 436-229608-12-2025 Radiology Diagnostic study note [facility] Imaging Services [address] [place] [address] Ankle min 3 Views MR#: [id number] Acct: [id number] Name: BERNICE HASSAN Rep #: [id number] : 1945 F 79 From: Kaushik Bacon MD PCP: Dr. Dago Emery MD Status: ADM I N Study:Ankle min 3 Views Date of Exam: Exam# [id number] Ordering Dr: Dago Emery MD PROCEDURE: ANKLE MIN 3 VIEWS 10/31/2024 REASON FOR EXAM: LEFT TOTAL KNEE REPLACEMENT TECHNIQUE: ANKLE MIN 3 VIEWS Laterality: Left COMPARISON: October 17, 2024 FINDINGS: Bones: Decreased bone mineralization. Old, healed fracture of the fibular diaphysis with bayonetingof the healed fragments. Oblique fracture through the tibial metadiaphysis. Mild sclerotic change. Thisis subacute. Joints: Mild degenerative change tibiotalar joint and subtalar joint. Soft tissues: Atherosclerosis is present. Other: Large calcaneal spur. Minimal calcification dorsal to the talar neck. Non-specific but can be associated with capsular injury. RAD/Ankle min 3 Views IMPRESSION: 1. Decreased bone mineralization. 2. Fracture of the distal tibial metadiaphysis. Similar to prior. Likely subacute injury Reading Location: [facility] CC: Dr. Dago Emery MD ~ Loss Prevention Consultant: Signed [facility]08-12-2025 Radiology Diagnostic study note [facility] Imaging Services [address] [place] [address] Knee 1 or 2 Views MR#: [id number] Acct: [id number] Name: BERNICE HASSAN Rep #: [id number] : 1945 F 79 From: Antonio Caballero MD PCP: Dr. Dago Emery MD Status: ADM I N Study:Knee 1 or 2 Views Date of Exam: Exam# [id number] Ordering Dr: Dago Emery MD PROCEDURE: KNEE 1 OR 2 VIEWS 10/31/2024 REASON FOR EXAM: POST-OP TECHNIQUE: KNEE 1 OR 2 VIEWS Laterality: Left COMPARISON: None FINDINGS: Patient is status post total knee replacement of the constrained type. There isgood alignment. 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 There is good alignment. Reading Location: [place] [address] CC: Dr. Dago Emery MD ~ Loss Prevention Consultant: Signed [facility]08-12-2025 Consult note [facility] Medical Records Department [address] [place] [address] Consultation - GI 10/31/24 0951 MR#: [id number] Acct: [id number] Name: BERNICE HASSAN Rep #:[id number] : 1945 79 From: Pio [place] PCP: Dr. Dago Emery MD Status:ADM I N Location: [place] [address] HPI Consult Data Date of Consult: 10/31/24 HPI Narrative Reason for Consultation: Anemia HPI Narrative: BERNICE HASSAN, is a 79 F who is currently in rehab. 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 She has no known chronic infectious orinflammatory diseases. 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 She is currently taking hydroxyurea and [address] Rodriguez performed left total knee replacement, removal left tibial nail, removal of 4 interlocking screws. All postoperative course has been complicatedby an acute distal tibial fracture. She remains on aspirin therapy and startingon doxycycline. I was asked to see her due to decreasing hemoglobin A1c providewith stools. Patient states she has had colonoscopy as part of recently but thelast 5 years. [facility] Medical History Cardiology follow-up encounter Wears glasses [...] mcg tablet 50 mcg PO DAILY thyroid 10/21/24 History (Levoxyl) losartan 100 mg tablet 100 mg PO DAILY bp 06/06/18 10/21/24 History amlodipine 5 mg tablet 5 mg PO DAILY bp 07/21/18 History cholecalciferol (vitamin D3) 25 1,000 unit PO DAILY pravin michael 10/26/19 10/21/24 History mcg (1,000 unit) tablet atenolol 50 mg tablet 50 mg PO DAILY@0800 blood 10/21/24 Rx pressure/heart rate 30 days #30 tabs hydroxyurea 500 mg capsule 1,000 mg (2 x 500 mg) PO 10/21/24 Rx MOTUTHFRSA chemo #100 caps acetaminophen 500 mg tablet 1,000 mg PO BID PRN inflam mation 10/04/24 10/21/24 History acetaminophen 500 mg tablet 1,000 mg (2 x 500 mg) PO Q 8 pain 10/21/24 10/21/24 Rx #0 tabs aspirin 81 mg capsule 81 mg PO BIDCM blood thinner #60 10/21/24 10/21/24 Rx caps doxycycline monohydrate 100 mg 100 mg PO BID antibioti c 10/21/24 10/21/24 History capsule famotidine 20 mg tablet 20 mg PO DAILY stomach 30 da ys #0 10/21/24 10/21/24 Rx tabs ferrous sulfate 325 mg (65 mg 325 mg PO 1200,1700 supp lement 20 10/21/24 10/20/24 Rx iron) tablet (FeroSul) days #0 tabs folic acid 1 mg tablet 1 mg PO BREAKFAST supplement 20 10/21/24 10/21/24 Rx days #0 tabs ondansetron HCl (PF) 4 mg/2 mL 4 mg (2 mL) IV Q6H PRN PRN 10/21/24 10/19/24 Rx injection solution Nausea/Vomiting 3 days #0 mL oxycodone 5 mg tablet 5 - 10 mg PO Q4H PRN PRN Lukas n Score 10/21/24 10/21/24 History polyethylene glycol 3350 17 17 g PO BID constipation # 119 grams 10/21/24 Unknown Rx gram/dose oral powder (Miralax) Allergy/AdvReac Type Severity Reaction Status Date / Time promethazine HCl (From Allergy Severe Other Verified 10/16/24 11:13 Phenergan) Penicillins AdvReac Severe Swelling Verified 10/16/24 11:13 red dye AdvReac Severe Unknown Verified 10/16/24 11:13 Tetanus Vaccines and Toxoid AdvReac Intermediate NEEDS Verified 10/16/24 11:13 FOLLOW-UP Family History Father Rheumatoid arthritis Surgical History History of total left knee replacement History of total right knee replacement Hx of right cataract extraction Hx of left cataract extraction History of breast lump removal History of hip surgery Social History household members: none housing: condominium Smoking Status: Never smoker second hand exposure: No alcohol intake: never substance use type: does not use justice/sikh: Adventist seatbelt use: always do you feel safe at home: Yes ROS Constitutional Constitutional: Denies fatigue, fever(s), poor appetite, weight gain or weight loss Gastrointestinal Gastrointestinal: Denies belching, bloating, change in bowel habits, change in stool character, chewing difficulty, coffee ground emesis, constipation, cramping, diarrhea, dyspepsia, dysphagia, earlysatiety, excessive flatus, fecalincontinence, heartburn, hematemesis, hematochezia, hemorrhoids, loose stools, melena, nausea, odynophagia, rectal bleeding, tenesmus, vomiting or weight changes Physical Exam Const alert General Appearance: cooperative HEENT normocephalic Eyes PERRL and EOMs intact bilaterally Neck supple, no JVD and no carotid bruits Resp normal respiratory effort, normal air movement and clear to auscultation bilaterally Cardio regular rate and regular rhythm GI normal to inspection, nondistended, normoactive bowel sounds, non-tender and non-distended Extremity normal capillary refill Extremity Narrative: Left lower extremity dressed. General Extremity: Negative for edema Skin no rashes or lesions noted General Skin Exam: no breakdown Psych affect normal Appearance: appropriate Lab / Micro Data 10/31/24 06:55 10/27/24 05:29 Labs: Laboratory Results - last 24 hr 10/31/24 06:55: Hgb 8.4 L, Hct 24.8 L Micro: Microbiology 10/31/24 03:40 Stool Stool Occult Blood (BREA) - Final Occult Blood Positive Assessment & Plan Assessment/Plan (1) Anemia: PLAN: 79-year-old with essential thrombocythemia on hydroxyurea and aspirin status post right knee replacement and ankle fracture. She currently is possibly having acute blood loss anemia. She shouldundergo an upper endoscopy and is a colonoscopy for acute GI blood loss. She was explained alternatives, benefits, risks including not withstanding bleeding, infection, sepsis, perforation, need for surgery and . She will have an ASA 3. Charges/Coding Visit Charges Inpatient E&M: 88249 SNF Init L2 10/31/24 0958 Cosigner Signature (if applicable): CC: Dr. Dago Emery MD~ Signed [facility]08-05-2025 History and physical note Author Dago [place] [facility] Note Date/Time October 24, 2024 5:2 8pm [facility] Medical Records Department [address] [place] [address] History & Physical Exam 10/21/24 1747 MR#: [id number] Acct: [id number] Name: BERNICE HASSAN Rep #:[id number] : 1945 79 From: Dago Emery MD PCP: Dr. Dago Emery MD Status:ADM I N Location: [place] [id number] HPI - General General Date of Admission: 10/21/24 Date of Service: 10/23/24 Chief Complaint: Here for rehabilitation. HPI Narrative BERNICE HASSAN, is a 79 Female who presents with followin10/16/2024 Admit [facility]. 10/16/2024 Dr. Rodriguez performed left total knee replacement, removal left tibial nail, removal of 4 interlocking screws. 10/16/2024 Pain control. PT/OT/CM, patient requests TCU. Somnolent after surgery, mild left knee pain. 10/17/2024 Doing well, pain controlled. PT/OT. Surgical incisions oozing blood, steristripped. Nausea/vomiting improved with zofran. Dizzy with standing, tires easily. Doxycycline for 2 weeks 04/23 hardware removal. Aspirin 81mg bid x 4 weeks for dvt prophylaxis. 10/18/2024 Transient hypotension resolved. Left ankle pain, CT left ankle showed acute distal tibia fracture. Treated with walking boot, TTWB LLE. 10/19/2024 Aspirin 81mg bid x 4 weeks dvt prophylaxis. Tylenol 1000mg q8, oxycodone for pain. Miralax, prune juice for constipation. Walking boot, TTWB left lower extremity for acute left distal tibial fracture. PT/OT for SNF. 10/20/2024 Hydroxyzine prn anxiety. Boost for constipation. Nausea, dizziness improved. Doing well with PT. 10/21/2024 Admit to TCU with debility, here for rehabilitation, strengthening, prior to discharge home alone. [facility] Medical History (Updated 10/21/24 @ 17:[address] Dago Emery MD) Cardiology follow-up encounter Wears glasses Post-menopausal Depression [...] mcg tablet 50 mcg PO DAILY thyroid 10/21/24 History (Levoxyl) losartan 100 mg tablet 100 mg PO DAILY bp 06/06/18 10/21/24 History amlodipine 5 mg tablet 5 mg PO DAILY bp 07/21/18 History cholecalciferol (vitamin D3) 25 1,000 unit PO DAILY pravin michael 10/26/19 10/21/24 History mcg (1,000 unit) tablet atenolol 50 mg tablet 50 mg PO DAILY@0800 blood 10/21/24 Rx pressure/heart rate 30 days #30 tabs hydroxyurea 500 mg capsule 1,000 mg (2 x 500 mg) PO 10/21/24 Rx MOTUTHFRSA chemo #100 caps acetaminophen 500 mg tablet 1,000 mg PO BID PRN inflam mation 10/04/24 10/21/24 History acetaminophen 500 mg tablet 1,000 mg (2 x 500 mg) PO Q 8 pain 10/21/24 10/21/24 Rx #0 tabs aspirin 81 mg capsule 81 mg PO BIDCM blood thinner #60 10/21/24 10/21/24 Rx caps doxycycline monohydrate 100 mg 100 mg PO BID antibioti c 10/21/24 10/21/24 History capsule famotidine 20 mg tablet 20 mg PO DAILY stomach 30 da ys #0 10/21/24 10/21/24 Rx tabs ferrous sulfate 325 mg (65 mg 325 mg PO 1200,1700 supp lement 20 10/21/24 10/20/24 Rx iron) tablet (FeroSul) days #0 tabs folic acid 1 mg tablet 1 mg PO BREAKFAST supplement 20 10/21/24 10/21/24 Rx days #0 tabs ondansetron HCl (PF) 4 mg/2 mL 4 mg (2 mL) IV Q6H PRN PRN 10/21/24 10/19/24 Rx injection solution Nausea/Vomiting 3 days #0 mL oxycodone 5 mg tablet 5 - 10 mg PO Q4H PRN PRN Lukas n Score 10/21/24 10/21/24 History polyethylene glycol 3350 17 17 g PO BID constipation # 119 grams 10/21/24 Unknown Rx gram/dose oral powder (Miralax) Allergy/AdvReac Type Severity Reaction Status Date / Time promethazine HCl (From Allergy Severe Other Verified 10/16/24 11:13 Phenergan) Penicillins AdvReac Severe Swelling Verified 10/16/24 11:13 red dye AdvReac Severe Unknown Verified 10/16/24 11:13 Tetanus Vaccines and Toxoid AdvReac Intermediate NEEDS Verified 10/16/24 11:13 FOLLOW-UP Family History Father Rheumatoid arthritis Surgical History (Updated 10/21/24 @ 17:[address] Dago Emery MD) History of total left knee replacement History of total right knee replacement Hx of right cataract extraction Hx of left cataract extraction History of breast lump removal History of hip surgery Social History household members: [facility] Smoking Status: Never smoker second hand exposure: No alcohol intake: never substance use type: does not use justice/sikh: Adventist seatbelt use: always do you feel safe at home: Yes ROS Constitutional Constitutional: Reports weakness; Denies chills, fever(s) or weight gain ENT HEENT: Denies headache(s), nasal congestion or nasal discharge Cardiovascular Cardiovascular: Denies chest pain or palpitations Respiratory/Chest Respiratory/Chest: Denies cough, excessive phlegm production or shortness of breath with exertion Gastrointestinal Gastrointestinal: Denies abdominal pain, nausea or vomiting Genitourinary Genitourinary: Denies dysuria Musculoskeletal Musculoskeletal: Denies joint pain or joint swelling Integumentary Integumentary: Denies rash or wounds Neurologic Neurologic: Denies focal weakness, numbness or tingling Psychiatric Psychiatric: Denies anxiety, auditory hallucinations, depression, homicidal ideation or suicidal ideation Vital Signs Vital Signs Vital Signs: 10/21/24 13:51 10/21/24 13:51 Temperature 97.2 F L Temperature Source Temporal Pulse Rate 73 Pulse Rhythm Regular Pulse Strength Normal (2+) Respiratory Rate 17 Respiratory Effort Normal Non-Labored Respiratory Depth Normal Respiratory Pattern Normal Blood Pressure 141/70 H Blood Pressure Mean 93 Blood Pressure Source Monitor Pulse Ox 96 Oxygen Delivery Method Room Air Weight Weight: 89.267 kg Body Mass Index (BMI) 32.7 Physical Exam Const alert General Appearance: cooperative HEENT normocephalic Eyes PERRL and EOMs intact bilaterally Neck supple, no JVD and no carotid bruits Resp normal respiratory effort, normal air movement and clear to auscultation bilaterally Cardio regular rate and regular rhythm GI normal to inspection, nondistended, normoactive bowel sounds, non-tender and non-distended Extremity normal capillary refill Extremity Narrative: Left lower extremity dressed. General Extremity: Negative for edema Skin no rashes or lesions noted General Skin Exam: no breakdown Psych affect normal Appearance: appropriate Results Lab / Micro Data 10/22/24 06:45 10/22/24 06:45 Assessment & Plan Assessment/Plan (1) Debility: (2) Status post total left knee replacement: (3) Essential (primary) hypertension: (4) Kidney stones: (5) Myeloproliferative disorder: (6) Hypothyroidism: (7) Vitamin D deficiency: PLAN: Plan 79 year old female with below past medical history hospitalized for left total knee replacement, removal left tibial nail, removal 4 interlocking screws 10/16/[address] Rodriguez, postoperative course complicated by acute left distaltibial fracture, nausea, vomiting, hypotension, constipation, admitted to TCU with debility, here for rehabilitation, strengthening, prior to discharge home alone. * Debility - PT/OT. * Pain - Tylenol 1000mg q8, Oxycodone 5-10mg q4 prn. * Bowel - senna/colace 2 tablets bid, Magnesium citrate 300mL daily prn. * Adult immunization - Administer pneumonia vaccine, covid vaccine, flu vaccine as appropriate. * DVT prophylaxis - Aspirin 81mg bid thru 11/18/2024. * Hypertension - Atenolol 50mg daily, Losartan 100mg daily, Amlodipine 5mg daily. * Vitamin D deficiency - D3 25mcg daily. * ID prophylaxis - Doxycycline 100mg bid thru 10/30/2024. * GERD - Famotidine 20mg daily. * Iron deficiency anemia - Ferrous sulfate 325mg bid. * Folate deficiency - Folic acid 1mg daily. * Myeloproliferative disorder - Hydrea 1000mg 5 days/week. * Hypothyroidism - Levothyroxine 50mcg daily. * Nausea - Zofran 4mg iv q6 prn. 10/23/24 0720 <Electronically signed by Dago Emery MD> Cosigner Signature (if applicable): CC: Dr. Dago Emery MD~ Signed ADDENDUM by Dr. Dago Emery MD on 10/24/24 at 1726 Addendum The following psychotropic medication is being started or the dose in being increased: Citalopram 10mg daily. Psychotropic medication therapy is indicated for a diagnosis of: Anxiety. In my professional judgement, medication is necessary because the resident?s symptoms cause significant distress to the resident or a danger to the resident or others. Evaluation for underlying causes including medical illness and pain has been considered. The benefits of the medication are felt to outweigh potential harm. Nonpharmacologic/behavior interventions have been attempted but have not been effective or nonpharmacologic interventions are contraindicated for this patient. Potential benefits and risks of treatment and alternatives have been reviewed with resident/family and the resident/family have accepted psychotropic medication treatment. Please see nursing documentation. 10/24/24 1726<Electronically signed by Dago Emery MD> Cosigner Signature (if applicable): cc: Dr. Dago Emery MD ~* Signed ADDENDUM by Dr. Dago Emery MD on 10/24/24 at 1728 Addendum The following psychotropic medication is being started or the dose in being increased: Lorazepam 0.5mg po q4h prn. Psychotropic medication therapy is indicated for a diagnosis of: Panic disorder. In my professional judgement, medication is necessary because the resident?s symptoms cause significant distress to the resident or a danger to the resident or others. Evaluation for underlying causes including medical illness and pain has been considered. The benefits of the medication are felt to outweigh potential harm. Nonpharmacologic/behavior interventions have been attempted but have not been effective or nonpharmacologic interventions are contraindicated for this patient. Potential benefits and risks of treatment and alternatives have been reviewed with resident/family and the resident/family have accepted psychotropic medication treatment. Please see nursing documentation. 10/24/241727<Electronically signed by Dago Emery MD> Cosigner Signature (if applicable): cc: Dr. Dago Emery MD ~* Signed [facility] Work Phone: [phone] History and physical note [facility] Medical Records Department [address] [place] [address] History & Physical Exam 10/21/24 1747 MR#: [id number] Acct: [id number] Name: BERNICE HASSAN Rep #:[id number] : 1945 79 From: Dago Emery MD PCP: Dr. Dago Emery MD Status:ADM I N Location: [place] [id number]- HPI - General General Date of Admission: 10/21/24 Date of Service: 10/23/24 Chief Complaint: Here for rehabilitation. HPI Narrative BERNICE HASSAN, is a 79 Female who presents with followin10/16/2024 Admit [facility]. 10/16/2024 Dr. Rodriguez performed left total knee replacement, removal left tibial nail, removal of 4 interlocking screws. 10/16/2024 Pain control. PT/OT/CM, patient requests TCU. Somnolent after surgery, mild left knee pain. 10/17/2024 Doing well, pain controlled. PT/OT. Surgical incisions oozing blood, steristripped. Nausea/vomiting improved with zofran. Dizzy with standing, tires easily. Doxycycline for 2 weeks / hardware removal. Aspirin 81mg bid x 4 weeks for dvt prophylaxis. 10/18/2024 Transient hypotension resolved. Left ankle pain, CT left ankle showed acute distal tibia fracture. Treated with walking boot, TTWB LLE. 10/19/2024 Aspirin 81mg bid x 4 weeks dvt prophylaxis. Tylenol 1000mg q8, oxycodone for pain. Miralax, prune juice for constipation. Walking boot, TTWB left lower extremity for acute left distal tibial fracture. PT/OT for SNF. 10/20/2024 Hydroxyzine prn anxiety. Boost for constipation. Nausea, dizziness improved. Doing well with PT. 10/21/2024 Admit to TCU with debility, here for rehabilitation, strengthening, prior to discharge home alone. [facility] Medical History (Updated 10/21/24 @ 17:[address] Dago Emery MD) Cardiology follow-up encounter Wears glasses Post-menopausal Depression [...] mcg tablet 50 mcg PO DAILY thyroid 10/21/24 History (Levoxyl) losartan 100 mg tablet 100 mg PO DAILY bp 06/06/18 10/21/24 History amlodipine 5 mg tablet 5 mg PO DAILY bp 07/21/18 History cholecalciferol (vitamin D3) 25 1,000 unit PO DAILY pravin michael 10/26/19 10/21/24 History mcg (1,000 unit) tablet atenolol 50 mg tablet 50 mg PO DAILY@0800 blood 10/21/24 Rx pressure/heart rate 30 days #30 tabs hydroxyurea 500 mg capsule 1,000 mg (2 x 500 mg) PO 10/21/24 Rx MOTUTHFRSA chemo #100 caps acetaminophen 500 mg tablet 1,000 mg PO BID PRN inflam mation 10/04/24 10/21/24 History acetaminophen 500 mg tablet 1,000 mg (2 x 500 mg) PO Q 8 pain 10/21/24 10/21/24 Rx #0 tabs aspirin 81 mg capsule 81 mg PO BIDCM blood thinner #60 10/21/24 10/21/24 Rx caps doxycycline monohydrate 100 mg 100 mg PO BID antibioti c 10/21/24 10/21/24 History capsule famotidine 20 mg tablet 20 mg PO DAILY stomach 30 da ys #0 10/21/24 10/21/24 Rx tabs ferrous sulfate 325 mg (65 mg 325 mg PO 1200,1700 supp lement 20 10/21/24 10/20/24 Rx iron) tablet (FeroSul) days #0 tabs folic acid 1 mg tablet 1 mg PO BREAKFAST supplement 20 10/21/24 10/21/24 Rx days #0 tabs ondansetron HCl (PF) 4 mg/2 mL 4 mg (2 mL) IV Q6H PRN PRN 10/21/24 10/19/24 Rx injection solution Nausea/Vomiting 3 days #0 mL oxycodone 5 mg tablet 5 - 10 mg PO Q4H PRN PRN Lukas n Score 10/21/24 10/21/24 History polyethylene glycol 3350 17 17 g PO BID constipation # 119 grams 10/21/24 Unknown Rx gram/dose oral powder (Miralax) Allergy/AdvReac Type Severity Reaction Status Date / Time promethazine HCl (From Allergy Severe Other Verified 10/16/24 11:13 Phenergan) Penicillins AdvReac Severe Swelling Verified 10/16/24 11:13 red dye AdvReac Severe Unknown Verified 10/16/24 11:13 Tetanus Vaccines and Toxoid AdvReac Intermediate NEEDS Verified 10/16/24 11:13 FOLLOW-UP Family History Father Rheumatoid arthritis Surgical History (Updated 10/21/24 @ 17:[address] Dago Emery MD) History of total left knee replacement History of total right knee replacement Hx of right cataract extraction Hx of left cataract extraction History of breast lump removal History of hip surgery Social History household members: [facility] Smoking Status: Never smoker second hand exposure: No alcohol intake: never substance use type: does not use justice/sikh: Adventist seatbelt use: always do you feel safe at home: Yes ROS Constitutional Constitutional: Reports weakness; Denies chills, fever(s) or weight gain ENT HEENT: Denies headache(s), nasal congestion or nasal discharge Cardiovascular Cardiovascular: Denies chest pain or palpitations Respiratory/Chest Respiratory/Chest: Denies cough, excessive phlegm production or shortness of breath with exertion Gastrointestinal Gastrointestinal: Denies abdominal pain, nausea or vomiting Genitourinary Genitourinary: Denies dysuria Musculoskeletal Musculoskeletal: Denies joint pain or joint swelling Integumentary Integumentary: Denies rash or wounds Neurologic Neurologic: Denies focal weakness, numbness or tingling Psychiatric Psychiatric: Denies anxiety, auditory hallucinations, depression, homicidal ideation or suicidal ideation Vital Signs Vital Signs Vital Signs: 10/21/24 13:51 10/21/24 13:51 Temperature 97.2 F L Temperature Source Temporal Pulse Rate 73 Pulse Rhythm Regular Pulse Strength Normal (2+) Respiratory Rate 17 Respiratory Effort Normal Non-Labored Respiratory Depth Normal Respiratory Pattern Normal Blood Pressure 141/70 H Blood Pressure Mean 93 Blood Pressure Source Monitor Pulse Ox 96 Oxygen Delivery Method Room Air Weight Weight: 89.267 kg Body Mass Index (BMI) 32.7 Physical Exam Const alert General Appearance: cooperative HEENT normocephalic Eyes PERRL and EOMs intact bilaterally Neck supple, no JVD and no carotid bruits Resp normal respiratory effort, normal air movement and clear to auscultation bilaterally Cardio regular rate and regular rhythm GI normal to inspection, nondistended, normoactive bowel sounds, non-tender and non-distended Extremity normal capillary refill Extremity Narrative: Left lower extremity dressed. General Extremity: Negative for edema Skin no rashes or lesions noted General Skin Exam: no breakdown Psych affect normal Appearance: appropriate Results Lab / Micro Data 10/22/24 06:45 10/22/24 06:45 Assessment & Plan Assessment/Plan (1) Debility: (2) Status post total left knee replacement: (3) Essential (primary) hypertension: (4) Kidney stones: (5) Myeloproliferative disorder: (6) Hypothyroidism: (7) Vitamin D deficiency: PLAN: Plan 79 year old female with below past medical history hospitalized for left total knee replacement, removal left tibial nail, removal 4 interlocking screws 10/16/[address] Rodriguez, postoperative course complicated by acute left distaltibial fracture, nausea, vomiting, hypotension, constipation, admitted to TCU with debility, here for rehabilitation, strengthening, prior to discharge home alone. * Debility - PT/OT. * Pain - Tylenol 1000mg q8, Oxycodone 5-10mg q4 prn. * Bowel - senna/colace 2 tablets bid, Magnesium citrate 300mL daily prn. * Adult immunization - Administer pneumonia vaccine, covid vaccine, flu vaccine as appropriate. * DVT prophylaxis - Aspirin 81mg bid thru 11/18/2024. * Hypertension - Atenolol 50mg daily, Losartan 100mg daily, Amlodipine 5mg daily. * Vitamin D deficiency - D3 25mcg daily. * ID prophylaxis - Doxycycline 100mg bid thru 10/30/2024. * GERD - Famotidine 20mg daily. * Iron deficiency anemia - Ferrous sulfate 325mg bid. * Folate deficiency - Folic acid 1mg daily. * Myeloproliferative disorder - Hydrea 1000mg 5 days/week. * Hypothyroidism - Levothyroxine 50mcg daily. * Nausea - Zofran 4mg iv q6 prn. 10/23/24 0720 Cosigner Signature (if applicable): CC: Dr. Dago Emery MD~ Signed ADDENDUM by Dr. Dago Emery MD on 10/24/24 at 1726 Addendum The following psychotropic medication is being started or the dose in being increased: Citalopram 10mg daily. Psychotropic medication therapy is indicated for a diagnosis of: Anxiety. In my professional judgement, medication is necessary because the resident?s symptoms cause significant distress to the resident or a danger to the resident or others. Evaluation for underlying causes including medical illness and pain has been considered. The benefits of the medication are felt tooutweigh potential harm. Nonpharmacologic/behavior interventions have been attempted but have not been effective or nonpharmacologic interventions are contraindicated for this patient. Potential benefits and risks of treatment and alternatives have been reviewed with resident/family and the resident/family have accepted psychotropic medication treatment. Please see nursing documentation. 10/24/24 172 Cosigner Signature (if applicable): cc: Dr. Dago Emery MD ~* Signed ADDENDUM by Dr. Dago Emery MD on 10/24/24 at 1728 Addendum The following psychotropic medication is being started or the dose in being increased: Lorazepam 0.5mg po q4h prn. Psychotropic medication therapy is indicated for a diagnosis of: Panic disorder. In my professional judgement, medication is necessary because the resident?s symptoms cause significant distress to the resident or a danger to the resident or others. Evaluation for underlying causes including medical illness and pain has been considered. The benefits of the medication are felt tooutweigh potential harm. Nonpharmacologic/behavior interventions have been attempted but have not been effective or nonpharmacologic interventions are contraindicated for this patient. Potential benefits and risks of treatment and alternatives have been reviewed with resident/family and the resident/family have accepted psychotropic medication treatment. Please see nursing documentation. 10/24/241727 Cosigner Signature (if applicable): cc: Dr. Dago Emery MD ~* Signed [facility]08-04-2025 Progress note Author Freddie Cameron [facility] Note Date/Time October 23, 2024 3:1 4pm [facility] Medical Records Department [address] [place] [address] Progress Note - Pharmacy 10/23/24 1439 MR#: [id number] Acct: [id number] Name: DRAKEBERNICE Alfred Rep #:[id number] : 1945 79 From: Freddie Cameron PCP: Dr. Dago Emery MD Status:ADM I N Location: TCU U15-1 Documented by User: Freddie Cameron 10/23/24 14:58 TCU RX Drug Regimen Review Subjective/Objective Subjective/Objective Subjective: TCU admission note. 79 year old female with below past medical history hospitalized for left total knee replacement, removal left tibial nail, removal 4 interlocking screws 10/16/[address] Rodriguez, postoperative course complicated by acute left distal tibial fracture, nausea, vomiting, hypotension,constipation, admitted to TCU with debility, here for rehabilitation, strengthening, prior to discharge home alone. Objective: Allergies promethazine HCl (From Phenergan) Allergy (Severe, Verified 10/16/24 11:13) Other heightens engery (zing) Penicillins Adverse Reaction (Severe, Verified 10/16/24 11:13) Swelling red dye Adverse Reaction (Severe, Verified 10/16/24 11:13) Unknown mouth to droop Tetanus Vaccines and Toxoid Adverse Reaction (Intermediate, Verified 10/16/24 11:13) NEEDS FOLLOW-UP Current Medications Generic Name Dose Route Start Last Admin Trade Name Freq PRN Reason Stop Dose Admin Acetaminophen 1,000 mg 10/21/24 14:00 10/23/24 07:28 Acetaminophen 500 Mg Tablet PO 500 mg Q8 KENDRA Administration Amlodipine Besylate 5 mg 10/22/24 10:00 10/23/24 09:35 Amlodipine 5 Mg Tablet PO 5 mg DAILY KENDRA Administration Protocol Aspirin 81 mg 10/21/24 17:00 10/23/24 09:34 Aspirin 81 Mg Tab.Chew PO 11/18/24 17:01 81 mg BIDCM KENDRA Administration Atenolol 50 mg 10/22/24 08:00 10/23/24 09:34 Atenolol 50 Mg Tablet PO 50 mg DAILY@0800 KENDRA Administration Protocol Cholecalciferol 25 mcg 10/22/24 10:00 10/23/24 09:36 Cholecalciferol (Vit D3) 25 Mcg Tablet (1,000 Units) PO 25 mcg DAILY KENDRA Administration Doxycycline Monohydrate 100 mg 10/21/24 22:00 10/23/24 09:35 Doxycycline 100 Mg Capsule PO 10/30/24 22:01 100 mg BID KENDRA Administration Famotidine 20 mg 10/22/24 10:00 10/23/24 09:35 Famotidine 20 Mg Tablet PO 20 mg DAILY KENDRA Administration Ferrous Sulfate 325 mg 10/21/24 17:00 10/22/24 16:36 Ferrous Sulfate 325 Mg Tablet PO Not Given 1200,1700 [facility] Folic Acid 1 mg 10/22/24 08:00 10/23/24 09:34 Folic Acid 1 Mg Tablet PO 1 mg BREAKFAST [facility] Administration Hydroxyurea 1,000 mg 10/23/24 10:00 10/23/24 09:35 Hydroxyurea 500 Mg Capsule PO 1,000 mg [id number]@1000 [facility] Administration Levothyroxine Sodium 50 mcg 10/22/24 06:00 10/23/24 05:44 Levothyroxine 50 Mcg Tablet PO 50 mcg DAILY@0600 [facility] Administration Losartan Potassium 100 mg 10/22/24 10:00 10/23/24 09:34 Losartan Potassium 100 Mg Tablet PO 100 mg DAILY [facility] Administration Protocol Magnesium Citrate 300 ml 10/21/24 17:58 Magnesium Citrate 300 Ml PO DAILY PRN Constipation Ondansetron HCl 4 mg 10/23/24 12:56 Ondansetron Odt 4 Mg Tablet PO Q6H PRN NAUSEA/VOMITING Oxycodone HCl 5 - 10 mg 10/21/24 13:59 10/23/24 11:53 Oxycodone 5 Mg Tablet PO 5 mg Q4H PRN PRN Administration Pain Score 3-10 Senna/Docusate Sodium 2 tablet 10/21/24 22:00 10/23/24 09:35 Senna/Docusate Sodium 1 Tablet PO 2 tablet BID [facility] Administration Tuberculin PPD 0.1 ml 10/29/24 10:00 Tuberculin,Purif.Prot.Deriv. 50 Tu/Ml Vial ID 10/29/24 10:01 X1 ONE Problem List Kidney stones (Acute) Essential (primary) hypertension (Acute) Status post total left knee replacement (Acute) Debility (Acute) Myeloproliferative disorder (Chronic) Hypothyroidism (Chronic) Vitamin D deficiency (Acute) Vital Signs Temp Pulse Resp BP Pulse Ox O2 Del Method 96.8 F L 66 17 113/68 95 Room Air 10/22/24 09:43 10/22/24 09:43 10/22/24 09:43 10/22/24 09:43 10/22/24 09:43 10/22/24 16:38 Oxygen Delivery Method Room Air Weight: 89.27 kg Body Mass Index (BMI) 32.7 Sodium 135 mmol/L (133-145) 10/22/24 06:45 Potassium 4.0 mmol/L (3.3-5.1) 10/22/24 06:45 Chloride 103 mmol/L (98-108) 10/22/24 06:45 Carbon Dioxide 22.0 mmol/L (21.0-32.0) 10/22/24 06:45 Anion Gap 10 (5-15) 10/22/24 06:45 BUN 22 mg/dL (4-19) H 10/22/24 06:45 Creatinine 0.84 mg/dL (0.70-1.20) 10/22/24 06:45 Est GFR (MDRD) Non-Af 70 (>60) 10/22/24 06:45 BUN/Creatinine Ratio 26.3 RATIO (10-20) H 10/22/24 06:45 Glucose 94 mg/dL (70-99) 10/22/24 06:45 Assessment/Plan: 1. Pain: acetaminophen 1000 mg PO Q8H, oxycodone 5-10 mg Po Q4H PRN pain. The patient has used 10 doses of PRN oxycodone so far this admission. Please continue to monitor pain levels (hopeful improvement with healing of fracture/surgical site), LFTs (AST/ALT = 22/14 U/L on 10/11/24), for constipation, respiratory depression, dizziness/drowsiness, and for syncope/ataxia/falls. 2. Bowel: senna/docusate 2 tablets PO BID, magnesium citrate 300 mL PO daily PRNconstipation. The patient has not required any PRN doses of magnesium citrate sofar this admission and the patient's last bowel movement was documented as 10/22/24. Please continue to monitor for bowel movements, PRN medication usage, constipation and diarrhea. 3. DVT prophylaxis: aspirin 81 mg PO BID through 11/18/24. Please continue to monitor for s/s of a DVT such as pain/swelling/erythema in an extremity, for s/sof bleeding/excessive bruising, hemoglobin levels (Hgb = 8.8 g/dL on 10/22/24), and platelet counts (plt = 248 K/mm3 on 10/22/24). 4. ID prophylaxis: doxycycline 100 mg PO BID through 10/30/24. Please continue tomonitor for s/s of surgical site infection, WBC counts (WBC = 5.1 K/mm3 on 10/22/24), fevers (temp = 96.8 F), and for photosensitivity and GI distress. 5. Hypertension: amlodipine 5 mg PO daily, atenolol 50 mg PO daily, losartan 100mg PO daily. Please continue to monitor blood pressures (recent range = 123-165/60-87 mmHg), heart rates (recent range = 54-73 beats/min), for lower extremity edema, for dizziness, for fatigue, renal function (serum creatinine = 0.84 mg/dL with creatinine clearance ~ 58 mL/min on 10/22/24), potassium levels (K= 4.0 mmol/L on 10/22/24), and sodium levels (Na = 135 mmol/L on 10/22/24). 6. GERD: famotidine 20 mg PO daily. Please continue to monitor for s/s of GERD, renal function (serum creatinine = 0.84 mg/dL with creatinine clearance ~ 58 mL/min on 10/22/24), and platelet counts (plt = 248 K/mm3 on 10/22/24), and for encephalopathy. 7. Myeloproliferative disorder: hydroxyurea 1000 mg PO on Mondays, Tuesdays, , Fridays and Saturdays. Please continue to monitor WBC counts (WBC = 5.1 K/mm3 on 10/22/24), hemoglobin levels (Hgb = 8.8 g/dL on 10/22/24), and plateletcounts (plt = 248 K/mm3 on 10/22/24). 8. Hypothyroidism: levothyroxine 50 mcg PO daily. Please continue to monitor fors/s of hypo/hyperthyroidism, and thyroid hormone levels (TSH = 1.47 uIU/mL on 07/31/24). 9. Iron deficiency anemia: ferrous sulfate 325 mg PO BID. Please continue to monitor hemoglobin levels (Hgb = 8.8 g/dL on 10/22/24), and iron levels (no recentiron levels documented). 10. Folate deficiency: folic acid 1 mg PO daily with breakfast. Please continue to monitor for s/s of folic acid deficiency. 11. Nausea: ondansetron 4 mg PO Q6H PRN nausea. The patient has not required anyPRN doses of ondansetron this admission. Please continue to monitor for nausea and PRN medication usage. 12. Vitamin D deficiency: cholecalciferol 25 mcg PO daily. Please continue to monitor vitamin D levels (vitamin D = 18.9 ng/mL on 07/31/24), and for s/s of vitamin D deficiency. Assessment/Plan for indications treated with psychotropic medications: NA Medical chart and medication regimen reviewed. The following medication irregularities or issues were identified: NA Date Date of Note: 10/23/24 Documented by User: Dr. Dago Emery MD 10/23/24 15:14 TCU RX Drug Regimen Review Provider Comments Provider responsibility Provider Comments to Recommendations by Pharmacy Agree 10/23/24 1458 <Electronically signed by Freddie Cameron> Freddie Cameron Cosigner Signature (if applicable): 10/23/24 1514 <Electronically signed by Dago Emery MD> CC: ~ Signed [facility] Work Phone: 1(873) 443-121608-04-2025 Progress note [facility] Medical Records Department [address] [place] [address] Progress Note - Pharmacy 10/23/24 1439 MR#: [id number] Acct: [id number] Name: BERNICE HASSAN Rep #:[id number] : 1945 79 From: Freddie Cameron PCP: Dr. Dago Emery MD Status:ADM I N Location: [place] [address] Documented by User: Freddie Cameron 10/23/24 14:58 TCU RX Drug Regimen Review Subjective/Objective Subjective/Objective Subjective: TCU admission note. 79 year old female with below past medical history hospitalized forleft total knee replacement, removal left tibial nail, removal 4 interlocking screws 10/16/2024 withDrPaige Rodriguez, postoperative course complicated by acute left distal tibial fracture, nausea, vomiting, hypotension,constipation, admitted to TCU with debility, here for rehabilitation, strengthening, prior to discharge home alone. Objective: Allergies promethazine HCl (From Phenergan) Allergy (Severe, Verified 10/16/24 11:13) Other heightens engery (zing) Penicillins Adverse Reaction (Severe, Verified 10/16/24 11:13) Swelling red dye Adverse Reaction (Severe, Verified 10/16/24 11:13) Unknown mouth to droop Tetanus Vaccines and Toxoid Adverse Reaction (Intermediate, Verified 10/16/24 11:13) NEEDS FOLLOW-UP Current Medications Generic Name Dose Route Start Last Admin Trade Name [place] PRN Reason Stop Dose Admin Acetaminophen 1,000 mg 10/21/24 14:00 10/23/24 07:28 Acetaminophen 500 Mg Tablet PO 500 mg Q8 [facility] Administration Amlodipine Besylate 5 mg 10/22/24 10:00 10/23/24 09:35 Amlodipine 5 Mg Tablet PO 5 mg DAILY [facility] Administration Protocol Aspirin 81 mg 10/21/24 17:00 10/23/24 09:34 Aspirin 81 Mg Tab.Chew PO 11/18/24 17:01 81 mg BIDCM [facility] Administration Atenolol 50 mg 10/22/24 08:00 10/23/24 09:34 Atenolol 50 Mg Tablet PO 50 mg DAILY@0800 [facility] Administration Protocol Cholecalciferol 25 mcg 10/22/24 10:00 10/23/24 09:36 Cholecalciferol (Vit D3) 25 Mcg Tablet (1,000 Units) PO 25 mcg DAILY [facility] Administration Doxycycline Monohydrate 100 mg 10/21/24 22:00 10/23/24 09:35 Doxycycline 100 Mg Capsule PO 10/30/24 22:01 100 mg BID [facility] Administration Famotidine 20 mg 10/22/24 10:00 10/23/24 09:35 Famotidine 20 Mg Tablet PO 20 mg DAILY [facility] Administration Ferrous Sulfate 325 mg 10/21/24 17:00 10/22/24 16:36 Ferrous Sulfate 325 Mg Tablet PO Not Given 1200,1700 [facility] Folic Acid 1 mg 10/22/24 08:00 10/23/24 09:34 Folic Acid 1 Mg Tablet PO 1 mg BREAKFAST [facility] Administration Hydroxyurea 1,000 mg 10/23/24 10:00 10/23/24 09:35 Hydroxyurea 500 Mg Capsule PO 1,000 mg MoTuThFrSa@1000 [facility] Administration Levothyroxine Sodium 50 mcg 10/22/24 06:00 10/23/24 05:44 Levothyroxine 50 Mcg Tablet PO 50 mcg DAILY@0600 [facility] Administration Losartan Potassium 100 mg 10/22/24 10:00 10/23/24 09:34 Losartan Potassium 100 Mg Tablet PO 100 mg DAILY [facility] Administration Protocol Magnesium Citrate 300 ml 10/21/24 17:58 Magnesium Citrate 300 Ml PO DAILY PRN Constipation Ondansetron HCl 4 mg 10/23/24 12:56 Ondansetron Odt 4 Mg Tablet PO Q6H PRN NAUSEA/VOMITING Oxycodone HCl 5 - 10 mg 10/21/24 13:59 10/23/24 11:53 Oxycodone 5 Mg Tablet PO 5 mg Q4H PRN PRN Administration Pain Score 3-10 Senna/Docusate Sodium 2 tablet 10/21/24 22:00 10/23/24 09:35 Senna/Docusate Sodium 1 Tablet PO 2 tablet BID [facility] Administration Tuberculin PPD 0.1 ml 10/29/24 10:00 Tuberculin,Purif.Prot.Deriv. 50 Tu/Ml Vial ID 10/29/24 10:01 X1 ONE Problem List Kidney stones (Acute) Essential (primary) hypertension (Acute) Status post total left knee replacement (Acute) Debility (Acute) Myeloproliferative disorder (Chronic) Hypothyroidism (Chronic) Vitamin D deficiency (Acute) Vital Signs Temp Pulse Resp BP Pulse Ox O2 Del Method 96.8 F L 66 17 113/68 95 Room Air 10/22/24 09:43 10/22/24 09:43 10/22/24 09:43 10/22/24 09:43 10/22/24 09:43 10/22/24 16:38 Oxygen Delivery Method Room Air Weight: 89.27 kg Body Mass Index (BMI) 32.7 Sodium 135 mmol/L (133-145) 10/22/24 06:45 Potassium 4.0 mmol/L (3.3-5.1) 10/22/24 06:45 Chloride 103 mmol/L (98-108) 10/22/24 06:45 Carbon Dioxide 22.0 mmol/L (21.0-32.0) 10/22/24 06:45 Anion Gap 10 (5-15) 10/22/24 06:45 BUN 22 mg/dL (4-19) H 10/22/24 06:45 Creatinine 0.84 mg/dL (0.70-1.20) 10/22/24 06:45 Est GFR (MDRD) Non-Af 70 (>60) 10/22/24 06:45 BUN/Creatinine Ratio 26.3 RATIO (10-20) H 10/22/24 06:45 Glucose 94 mg/dL (70-99) 10/22/24 06:45 Assessment/Plan: 1. Pain: acetaminophen 1000 mg PO Q8H, oxycodone 5-10 mg Po Q4H PRN pain. The patient has used 10 doses of PRN oxycodone so far this admission. Please continue to monitor pain levels (hopeful improvement with healing of fracture/surgical site), LFTs (AST/ALT = 22/14 U/L on 10/11/24), for constipation , respiratory depression, dizziness/drowsiness, and for syncope/ataxia/falls. 2. Bowel: senna/docusate 2 tablets PO BID, magnesium citrate 300 mL PO daily PRNconstipation. The patient has not required any PRN doses of magnesium citrate sofar this admission and the patient's last bowel movement was documented as 10/22/24. Please continue to monitor for bowel movements, PRN medication usage, constipation and diarrhea. 3. DVT prophylaxis: aspirin 81 mg PO BID through 11/18/24. Please continue to monitor for s/s of a DVT such as pain/swelling/erythema in an extremity, for s/sof bleeding/excessive bruising, hemoglobinlevels (Hgb = 8.8 g/dL on 10/22/24), and platelet counts (plt = 248 K/mm3 on 10/22/24). 4. ID prophylaxis: doxycycline 100 mg PO BID through 10/30/24. Please continue tomonitor for s/s of surgical site infection, WBC counts (WBC = 5.1 K/mm3 on 10/22/24), fevers (temp = 96.8 F), and for photosensitivity and GI distress. 5. Hypertension: amlodipine 5 mg PO daily, atenolol 50 mg PO daily, losartan 100mg PO daily. Pleasecontinue to monitor blood pressures (recent range = 123-165/60-87 mmHg), heart rates (recent range = 54-73 beats/min), for lower extremity edema, for dizziness, for fatigue, renal function (serum creatinine = 0.84 mg/dL with creatinine clearance ~ 58 mL/min on 10/22/24), potassium levels (K= 4.0 mmol/L on 10/22/24), and sodium levels (Na = 135 mmol/L on 10/22/24). 6. GERD: famotidine 20 mg PO daily. Please continue to monitor for s/s of GERD, renal function (serum creatinine = 0.84 mg/dL with creatinine clearance ~ 58 mL/min on 10/22/24), and platelet counts (plt = 248 K/mm3 on 10/22/24), and for encephalopathy. 7. Myeloproliferative disorder: hydroxyurea 1000 mg PO on Mondays, Tuesdays, , Fridays andSaturdays. Please continue to monitor WBC counts (WBC = 5.1 K/mm3 on 10/22/24), hemoglobin levels (Hgb = 8.8 g/dL on 10/22/24), and plateletcounts (plt = 248 K/mm3 on 10/22/24). 8. Hypothyroidism: levothyroxine 50 mcg PO daily. Please continue to monitor fors/s of hypo/hyperthyroidism, and thyroid hormone levels (TSH = 1.47 uIU/mL on 07/31/24). 9. Iron deficiency anemia: ferrous sulfate 325 mg PO BID. Please continue to monitor hemoglobin levels (Hgb = 8.8 g/dL on 10/22/24), and iron levels (no recentiron levels documented). 10. Folate deficiency: folic acid 1 mg PO daily with breakfast. Please continue to monitor for s/s of folic acid deficiency. 11. Nausea: ondansetron 4 mg PO Q6H PRN nausea. The patient has not required anyPRN doses of ondansetron this admission. Please continue to monitor for nausea and PRN medication usage. 12. Vitamin D deficiency: cholecalciferol 25 mcg PO daily. Please continue to monitor vitamin D levels (vitamin D = 18.9 ng/mL on 07/31/24), and for s/s of vitamin D deficiency. Assessment/Plan for indications treated with psychotropic medications: NA Medical chart and medication regimen reviewed. The following medication irregularities or issues were identified: NA Date Date of Note: 10/23/24 Documented by User: Dr. Dago Emery MD 10/23/24 15:14 TCU RX Drug Regimen Review Provider Comments Provider responsibility Provider Comments to Recommendations by Pharmacy Agree 10/23/24 6788 Freddie Germain Signature (if applicable): 10/23/24 1514 CC: ~ Signed [facility]08-02-2025 [facility] Medical Records Department [address] [place] [address] History Physical Exam 10/21/24 1747 MR#: [id number] Acct: [id number] Name: BERNICE HASSAN Rep #: [id number] : 1945 79 From: Dago Emery MD PCP: Dr. Dago Emery MD Status:ADM IN [facility] - General General Date of Admission: 10/21/24 Date of Service: 10/23/24 Chief Complaint: Here for rehabilitation. HPI Narrative BERNICE HASSAN, is a 79 Female who presents with followin10/16/2024 Admit [facility]. 10/16/2024 Dr. Rodriguez performed left total knee replacement, removal left tibial nail, removal of 4 interlocking screws. 10/16/2024 Pain control. PT/OT/CM, patient requests TCU. Somnolent after surgery, mild left knee pain. 10/17/2024 Doing well, pain controlled. PT/OT. Surgical incisions oozing blood, steristripped. Nausea/vomiting improved with zofran. Dizzy with standing, tires easily. Doxycycline for 2 weeks 2/2 hardware removal. Aspirin 81mg bid x 4 weeks for dvt prophylaxis. 10/18/2024 Transient hypotension resolved. Left ankle pain, CT left ankle showed acute distal tibia fracture. Treated with walking boot, TTWB LLE. 10/19/2024 Aspirin 81mg bid x 4 weeks dvt prophylaxis. Tylenol 1000mg q8, oxycodone for pain. Miralax, prune juice for constipation. Walking boot, TTWB left lower extremity for acute left distal tibial fracture. PT/OT for SNF. 10/20/2024 Hydroxyzine prn anxiety. Boost for constipation. Nausea, dizziness improved. Doing well with PT. 10/21/2024 Admit to TCU with debility, here for rehabilitation, strengthening, prior to discharge home alone. [facility] Medical History (Updated 10/21/24 @ 17:[address] Dago Emery MD) Cardiology follow-up encounter Wears glasses Post-menopausal Depression [...] 50 mcg PO DAILY thyroid 08/04/13 0 10/21/24 History (Levoxyl) losartan 100 mg tablet 100 mg PO DAILY bp 06/06/18 History amlodipine 5 mg tablet 5 mg PO DAILY bp 07/21/18 10/21/24 History cholecalciferol (vitamin D3) 25 1,000 unit PO DAILY bones 10/26/19 10/21/24 History mcg (1,000 unit) tablet atenolol 50 mg tablet 50 mg PO DAILY@0800 blood 10/09/22 10/21/24 Rx pressure/heart rate 30 days #30 tabs hydroxyurea 500 mg capsule 1,000 mg (2 x 500 mg) PO 10/02/24 10/21/24 Rx MOTUTHFRSA chemo #100 caps acetaminophen 500 mg tablet 1,000 mg PO BID PRN inflammation 0 10/04/24 10/21/24 History acetaminophen 500 mg tablet 1,000 mg (2 x 500 mg) PO Q8 pain 0 10/21/24 10/21/24 Rx #0 tabs aspirin 81 mg capsule 81 mg PO BIDCM blood thinner #60 0 10/21/24 10/21/24 Rx caps doxycycline monohydrate 100 mg 100 mg PO BID antibiotic 10/21/24 10/21/24 History capsule famotidine 20 mg tablet 20 mg PO DAILY stomach 30 days #0 10/21/24 10/21/24 Rx tabs ferrous sulfate 325 mg (65 mg 325 mg PO 1200,1700 supplement 20 10/21/24 10/20/24 Rx iron) tablet (FeroSul) days #0 tabs folic acid 1 mg tablet 1 mg PO BREAKFAST supplement 20 10/21/24 Rx days #0 tabs ondansetron HCl (PF) 4 mg/2 mL 4 mg (2 mL) IV Q6H PRN PRN 5 10/19/24 Rx injection solution Nausea/Vomiting 3 days #0 mL oxycodone 5 mg tablet 5 - 10 mg PO Q4H PRN PRN Pain Scor e 10/21/24 10/21/24 History polyethylene glycol 3350 17 17 g PO BID constipation #119 gram s 10/21/24 Unknown Rx gram/dose oral powder (Miralax) Allergy/AdvReac Type Severity Reaction Status Date / Time promethazine HCl (From Allergy Severe Other Verified 10/16/24 11:13 Phenergan) Penicillins AdvReac Severe Swelling Verified 10/16/24 11:13 red dye AdvReac Severe Unknown Verified 10/16/24 11:13 Tetanus Vaccines and Toxoid AdvReac Intermediate NEEDS Verified 10/16/24 11:13 FOLLOW-UP Family History Father Rheumatoid arthritis Surgical History (Updated 10/21/24 @ 17:[address] Dago Emery MD) History of total left knee replacement History of total right knee replacement Hx of right cataract extraction Hx of left cataract extraction History of breast lump removal History of hip surgery Social History household members: none housing: condominium Smoking Status: Never smoker second hand exposure: No alcohol intake: never substance use type: does not use justice/sikh (more content not included)...[facility] 10-21-2024 Discharge summary Author Nela Wallace [facility] Note Date/Time October 21, 2024 11: 05am [facility] Medical Records Department [address] [place] [address] Discharge Summary 10/21/24 1100 MR#: [id number] Acct: [id number] Name: BERNICE HASSAN Rep #:[id number] : 1945 79 From: Nela CORNELIUS PCP: Dr. Dago Emery MD Status:ADM I N [place] [facility] [place] Providers Date of Admission: 10/18/24 Primary Care Physician: Dr. Dago Emery MD Consultations 10/16/24 14:53 Consult: Hospitalist Routine Consulting Provider: [facility] Reason for Consult: post op med [...] feel patient is ready for discharge to custodial facility. Patient states that she feels much [...] % (Auto) 54.7, Lymph % (Auto) 27.2, [place] % (Auto) 15.2 H, Eos % (Auto) [...] Profile (BMP) (Routine) Timeframe: 1 Week Facility: [facility] - Location: Laboratory Ordered By: Nela Wallace CBC W/Diff, Automated (Routine) Timeframe: 1 Week Facility: [facility] - Location: Laboratory Ordered By: Nela Wallace Referrals / Follow Up: Dago Emery Chi, MD [Primary Care Provider] - Disposition Disposition (needs filled in before D/C Order can be placed): Inpatient Rehab Unit/Facility 10/21/24 1105 <Electronically signed by Nela CORNELIUS> Cosigner Signature (if applicable): CC: ADRYAN Holland; Dr. Dago Emery MD~ Signed [facility] Work Phone: 1(282) 951-575008-02-2025 Discharge summary Author Nela Rodrigo [facility] Note Date/Time October 21, 2024 10: 59am [facility] Medical Records Department [address] [place] [address] Transfer to [facility] MR#: [id number] Acct: [id number] Name: DRAKEBERNICE Alfred Rep #:[id number] : 1945 79 From: Nela CORNELIUS PCP: Dr. Dago Emery MD Status:ADM I N Certification of patient admission REQUIRED AT TIME OF ADMISSION. I CERTIFY THAT POST-HOSPITAL ECF SERVICES ARE REQUIRED TO BE GIVEN ON AN IN-PATIENT BASIS BECAUSE OF THE ABOVE NAMED PATIENT'S NEED FOR CARE HOME CARE ON A CONTINUING BASIS FOR THE CONDITION(S) FOR WHICH HE/SHE WAS RECEIVING IN-PATIENT HOSPITAL SERVICES PRIOR TO HIS/HER TRANSFER TO THE [facility]. 10/21/24 1059<Electronically signed by Nela Rodrigo PA> Diet Diet Order/Speech Therapy: INPATIENT Hospital Diet [...] feel patient is ready for discharge to custodial facility. Patient states that she feels much [...] Profile (BMP) (Routine) Timeframe: 1 Week Facility: [facility] - Location: Laboratory Ordered By: Nela Wallace CBC W/Diff, Automated (Routine) Timeframe: 1 Week Facility: [facility] - Location: Laboratory Ordered By: Nela Wallace Referrals / Follow Up: Dago Emery Chi, MD [Primary Care Provider] - Disposition Disposition (needs filled in before D/C Order can be placed): Inpatient Rehab Unit/Facility 10/21/24 1059 <Electronically signed by Nela CORNELIUS> Cosigner Signature (if applicable): CC: Dr. Juliane Villa MD; Dr. Sofia Carvajal MD; Dr. Dago Emery MD ~ [facility] Work Phone: 1([phone]) 425-865208-02-2025 Progress note Author Nela Rodrigo [facility] Note Date/Time October 21, 2024 10: 33am [facility] Medical Records Department [address] [place] [address] Progress Note - Orthopedic 10/21/24 1022 MR#: [id number] Acct: [id number] Name: BERNICE HASSAN Rep #:[id number] : 1945 79 From: Nela CORNELIUS PCP: Dr. Dago Emery MD Status:ADM I N Location: [facility] [id number] Subjective Subjective Patient is sitting comfortably in [...] % (Auto) 54.7, Lymph % (Auto) 27.2, [place] % (Auto) 15.2 H, Eos % (Auto) [...] fracture: CT images were reviewed with Dr. Rordiguez from October 17, 2024. CT did show [...] feel patient is ready for discharge to custodial facility. Patient states that she feels much [...] Cosigner Signature (if applicable): CC: ~ Signed [facility] Work Phone: 1(425) 279-306008-02-2025 Discharge summary [facility] Medical Records Department [address] [place] [address] Discharge Summary 10/21/24 1100 MR#: [id number] Acct: [id number] Name: BERNICE HASSAN Rep #:[id number] : 1945 79 From: Nela CORNELIUS PCP: Dr. Dago Emery MD Status:ADM I N Location: [place] [address] Providers Date of Admission: 10/18/24 Primary Care Physician: Dr. Dago Emery MD Consultations 10/16/24 14:53 Consult: Hospitalist Routine Consulting Provider: [facility] Reason for Consult: post op med [...] feel patient is ready for discharge to custodial facility.Patient states that she feels much more [...] % (Auto) 54.7, Lymph % (Auto) 27.2, [place] % (Auto) 15.2 H, Eos % (Auto) [...] Profile (BMP) (Routine) Timeframe: 1 Week Facility: [facility] - Location: Laboratory Ordered By: Nela Wallace CBC W/Diff, Automated (Routine) Timeframe: 1 Week Facility: [facility] - Location: Laboratory Ordered By: Nela Wallace Referrals / Follow Up: Dago Emery Chi, MD [Primary Care Provider] - Disposition Disposition (needs filled in before D/C Order can be placed): Inpatient Rehab Unit/Facility 10/21/24 1105 Cosigner Signature (if applicable): CC: ADRYAN Holland; Dr. Dago Emery MD~ Signed [facility]08-02-2025 [facility] Medical Records Department [address] [place] [address] Discharge Summary 10/21/24 1100 MR#: [id number] Acct: [id number] Name: BERNICE HASSAN Rep #: [id number] : 1945 79 From: Nela CORNELIUS PCP: Dr. Dago Emery MD Status:ADM IN Location: [facility] VV198-0 Providers Date of Admission: 10/18/24 Primary Care Physician: Dr. Dago Emery MD Consultations 10/16/24 14:53 Consult: Hospitalist Routine Consulting Provider: [facility] Reason for Consult: post op med [...] on Tylenol 1000 mg every 8 hours. Patient will be taking oxycodone as needed for postoperative [...] using a walking boot and will be toe-touch weightbearing with walker for 6 weeks postoperatively. 5. Physical therapy: Patient will now be toe-touch weightbearing on operative side with a walker. She will be toe-touch weightbearing for 6 weeks postoperatively. 6. H H: 8.7/25.5. Hemoglobin did drop from 9.1 yesterday. [...] was educated on the risk of sunburn while taking doxycycline. Patient was educated to take a [...] feel patient is ready for discharge to custodial facility. Patient states that she feels much [...] will be filled out today. Patient's narcotic pain medication will be sent with her to the TCU. Patient does have 2- week follow-up visit scheduled in office. Patient was encouraged to call with any questions, concerns, new problems. This dictation was created using voice recognition software. Phonetic and/or grammatical errors may exist. Medications at Discharge Home Medications levothyroxine 50 mcg tablet (Le (more content not included)...[facility]08-02-2025 Discharge summary [facility] Medical Records Department [address] [place] [address] Transfer to [facility] MR#: [id number] Acct: [id number] Name: BERNICE HASSAN Rep #:[id number] : 1945 79 From: Nela CORNELIUS PCP: Dr. Dago Emery MD Status:ADM I N Certification of patient admission REQUIRED AT TIME OF ADMISSION. I CERTIFY THAT POST-HOSPITAL ECF SERVICES ARE REQUIRED TO BE GIVEN ON AN IN-PATIENT BASIS BECAUSE OF THE ABOVE NAMED PATIENT'S NEED FOR CARE HOME CARE ON A CONTINUING BASIS FOR THE CONDITION(S) FOR WHICH HE/SHE WAS RECEIVING IN-PATIENT HOSPITAL SERVICES PRIOR TO HIS/HER TRANSFER TO THE ECF. 10/21/24 1059 Diet Diet Order/Speech Therapy: INPATIENT [...] feel patient is ready for discharge to custodial facility.Patient states that she feels much more [...] Profile (BMP) (Routine) Timeframe: 1 Week Facility: [facility] - Location: Laboratory Ordered By: Nela Wallace CBC W/Diff, Automated (Routine) Timeframe: 1 Week Facility: [facility] - Location: Laboratory Ordered By: Nela Wallace Referrals / Follow Up: Dago Emery Chi, MD [Primary Care Provider] - Disposition Disposition (needs filled in before D/C Order can be placed): Inpatient Rehab Unit/Facility 10/21/24 1059 Cosigner Signature (if applicable): CC: Dr. Juliane Villa MD; Dr. Sofia Carvajal MD; Dr. Dago Emery MD ~ [facility]08-02-2025 Progress note [facility] Medical Records Department [address] [place] [address] Progress Note - Orthopedic 10/21/24 1022 MR#: [id number] Acct: [id number] Name: BERNICE HASSAN Rep #:[id number] : 1945 79 From: Nela CORNELIUS PCP: Dr. Dago Emery MD Status:ADM I N Location: MS3 LJ111-7 Subjective Subjective Patient is sitting comfortably in [...] % (Auto) 54.7, Lymph % (Auto) 27.2, [place] % (Auto) 15.2 H, Eos % (Auto) [...] feel patient is ready for discharge to custodial facility.Patient states that she feels much more [...] Cosigner Signature (if applicable): CC: ~ Signed [facility]08-01-2025 Progress note Author Sofia Carvajal [facility] Note Date/Time October 20, 2024 4:4 6pm [facility] Medical Records Department [address] [place] [address] Progress Note - Hospitalist 10/20/24 1640 MR#: [id number] Acct: [id number] Name: BERNICE HASSAN Rep #:[id number] : 1945 79 From: Sofia Carvajal MD PCP: Dr. Dago Emery MD Status:ADM I N Location: [place] [address] Subjective Subjective Initially this morning patient complaining [...] 127/60 H 99 Room Air 2 10/20/24 14:10/20/24 14:10/20/24 14:10/20/24 14:10/20/24 14:10/20/24 14:07 10/16/24 22:13 Oxygen Flow [...] per Ortho Charges/Coding Visit Charges Inpatient E&M: 63018 Subs Hosp L1 10/20/24 8711 <Electronically signed by Sofia Carvajal MD> Cosigner Signature (if applicable): CC: ~ Signed [facility] Work Phone: 1(701) 784-851908-01-2025 Progress note [facility] Medical Records Department [address] [place] [address] Progress Note - Hospitalist 10/20/24 1640 MR#: [id number] Acct: [id number] Name: BERNICE HASSAN Rep #:[id number] : 1945 79 From: Sofia Carvajal MD PCP: Dr. Dago Emery MD Status:ADM I N Location: NH3 [place] [address] Subjective Subjective Initially this morning patient complaining [...] 99 Room Air 2 10/20/24 14:07 10/20/24 14:10/20/24 14:07 10/20/24 14:07 10/20/24 14:07 10/20/24 14:07 [...] per Ortho Charges/Coding Visit Charges Inpatient E&M: 57745 Subs Hosp L1 10/20/24 1646 Cosigner Signature (if applicable): CC: ~ Signed [facility]08-01-2025 Progress note Author Nela Wallace [facility] Note Date/Time October 20, 2024 11: 56am [facility] Medical Records Department [address] [place] [address] Progress Note - Orthopedic 10/20/24 1144 MR#: [id number] Acct: [id number] Name: BERNICE HASSAN Rep #:[id number] : 1945 79 From: Nela CORNELIUS PCP: Dr. Dago Emery MD Status:ADM I N Location: [place] [address]-1 Subjective Subjective Patient is sitting comfortably in [...] feel patient is ready for discharge to custodial facility at this time. Due to the [...] Cosigner Signature (if applicable): CC: ~ Signed [facility] Work Phone: 1(899) 315-170308-01-2025 Progress note [facility] Medical Records Department [address] [place] [address] Progress Note - Orthopedic 10/20/24 1144 MR#: [id number] Acct: [id number] Name: BERNICE HASSAN Rep #:[id number] : 1945 79 From: Nela CORNELIUS PCP: Dr. Dago Emery MD Status:ADM I N Location: NH3 JB909-5 Subjective Subjective Patient is sitting comfortably in [...] feel patient is ready for discharge to custodial facility at this time. Due to the [...] Cosigner Signature (if applicable): CC: ~ Signed [facility]07-31-2025 Progress note Author Landen Potts [facility] Note Date/Time October 19, 2024 1:45 pm [facility] Medical Records Department [address] [place] [address] Progress Note - Orthopedic 10/19/24 1306 MR#: [id number] Acct: [id number] Name: BERNICE HASSAN Rep #:[id number] : 1945 79 From: Landen CORNELIUS PA-C PCP: Dr. Dago Emery MD Status:ADM I N Location: MS3 KZ871-7 Subjective Subjective The patient was sitting in [...] (Auto) 66.7, Lymph % (Auto) 14.4 L, [place] % (Auto) 17.1 H, Eos % (Auto) [...] intramedullary nailing of the tibia. Reading Location: [id number]-T Physical Exam Narrative Vital signs stable and [...] feel patient is ready for discharge to custodial facility. Due to the acute distal tibia [...] Cosigner Signature (if applicable): CC: ~ Signed [facility] Work Phone: 1(648) 880-811707-31-2025 Progress note [facility] Medical Records Department [address] [place] [address] Progress Note - Orthopedic 10/19/24 1306 MR#: [id number] Acct: [id number] Name: BERNICE HASSAN Rep #:[id number] : 1945 79 From: Landen CORNELIUS PA-C PCP: Dr. Dago Emery MD Status:ADM I N Location: [place] [address]991-1 Subjective Subjective The patient was sitting in [...] (Auto) 66.7, Lymph % (Auto) 14.4 L, [place] % (Auto) 17.1 H, Eos % (Auto) [...] intramedullary nailing of the tibia. Reading Location: HQO-IYXKOUNNU-C Physical Exam Narrative Vital signs stable and [...] feel patient is ready for discharge to custodial facility. Due to the acute distal tibia [...] Cosigner Signature (if applicable): CC: ~ Signed [facility]07-30-2025 Radiology Diagnostic study note [facility] Imaging Services [address] [place] [address] Knee 1 or 2 Views MR#: [id number] Acct: [id number] Name: BERNICE HASSAN Rep #: [id number] : 1945 F 79 From: Antonio Caballero MD PCP: Dr. Dago Emery MD Status: ADM I N Study:Knee 1 or 2 Views Date of Exam: Exam# [id number] Ordering Dr: Grayson Rodriguez MD PROCEDURE: KNEE [...] intramedullary nailing of the tibia. Reading Location: [id number] CC: Dr. Geo Rodriguez MD; Dr. Dago Emery MD ~ Loss Prevention Consultant: Signed [facility]07-30-2025 Progress note Author See Valente [facility] Note Date/Time October 18, 2024 10:2 8am [facility] Medical Records Department [address] [place] [address] Progress Note - Hospitalist 10/18/24 1015 MR#: [id number] Acct: [id number] Name: BERNICE HASSAN Rep #:[id number] : 1945 79 From: See ko MD PCP: Dr. aDgo Emery MD Status:ADM I NO Location: [place] [address] Subjective Subjective Had a transient episode of [...] 73.5 H, Lymph % (Auto) 11.1 L, [place] % (Auto) 14.6 H, Eos % (Auto) [...] extension appreciated. Congruent ankle mortise. Reading Location: QYX-NTDAPSH-BM Lower Extremity CT 10/17/24 21:42 IMPRESSION: Acute distal tibial meta diaphyseal junction fracture, no extension to the articular surface. No acute distal fibular fracture associated. No dislocation. Reading Location: [place] [address] Physical Exam Narrative General: Alert, Oriented x3, [...] per Ortho Charges/Coding Visit Charges Inpatient E&M: 84138 Subs Hosp L2 10/18/24 1028 <Electronically signed by See Valente MD> Cosigner Signature (if applicable): CC: ~ Signed [facility] Work Phone: 1(435) 827-744507-30-2025 Progress note Author Nela Wallace [facility] Note Date/Time October 18, 2024 8:38 am [facility] Medical Records Department [address] [place] [address] Progress Note - Orthopedic 10/18/24825 MR#: [id number] Acct: [id number] Name: BERNICE HASSAN Rep #:[id number] : 1945 79 From: Nela CORNELIUS PCP: Dr. Dago Emery MD Status:ADM I NO Location: MS3 KD205-9 Subjective Subjective Patient is anxious and down [...] 73.5 H, Lymph % (Auto) 11.1 L, [place] % (Auto) 14.6 H, Eos % (Auto) [...] extension appreciated. Congruent ankle mortise. Reading Location: [facility] Lower Extremity CT 10/17/24 21:42 IMPRESSION: Acute distal tibial meta diaphyseal junction fracture, no extension to the articular surface. No acute distal fibular fracture associated. No dislocation. Reading Location: [place] [address] Physical Exam Narrative JUDE hose in place [...] Cosigner Signature (if applicable): CC: ~ Signed [facility] Work Phone: 1(596) 128-751107-30-2025 Progress note [facility] Medical Records Department [address] [place] [address] Progress Note - Hospitalist 10/18/24 1015 MR#: [id number] Acct: [id number] Name: BERNICE HASSAN Rep #:[id number] : 1945 79 From: See ko MD PCP: Dr. Dago Emery MD Status:ADM I NO Location: [place] [address] Subjective Subjective Had a transient episode of [...] 73.5 H, Lymph % (Auto) 11.1 L, [place] % (Auto) 14.6 H, Eos % (Auto) [...] extension appreciated. Congruent ankle mortise. Reading Location: [facility] Lower Extremity CT 10/17/24 21:42 IMPRESSION: Acute distal tibial meta diaphyseal junction fracture, no extension to the articular surface. No acute distal fibular fracture associated. No dislocation. Reading Location: [place] [address] Physical Exam Narrative General: Alert, Oriented x3, [...] per Ortho Charges/Coding Visit Charges Inpatient E&M: 47823 Subs Hosp L2 10/18/24 1028 Cosigner Signature (if applicable): CC: ~ Signed [facility]07-30-2025 Progress note [facility] Medical Records Department [address] [place] [address] Progress Note - Orthopedic 10/18/24 0826 MR#: [id number] Acct: [id number] Name: BERNICE HASSAN Rep #:[id number] : 1945 79 From: Nela CORNELIUS PCP: Dr. Dago Emery MD Status:ADM I NO Location: MS3 AH291-6 Subjective Subjective Patient is anxious and down [...] 73.5 H, Lymph % (Auto) 11.1 L, [place] % (Auto) 14.6 H, Eos % (Auto) [...] extension appreciated. Congruent ankle mortise. Reading Location: UOE-CHICZIC-MI Lower Extremity CT 10/17/24 21:42 IMPRESSION: Acute distal tibial meta diaphyseal junction fracture, no extension to the articular surface. No acute distal fibular fracture associated. No dislocation. Reading Location: [place] [address] Physical Exam Narrative JUDE hose in place [...] Cosigner Signature (if applicable): CC: ~ Signed [facility]07-29-2025 Radiology Diagnostic study note [facility] Imaging Services [address] [place] [address] Extremity Lower without Contra MR#: [id number] Acct: [id number] Name: BERNICE HASSAN Rep #: [id number] : 1945 F 79 From: Saida Osman MD PCP: Dr. Dago Emery MD Status: ADM I NO Study:Extremity Lower without Contra Date of Exam: 10/17/24 Exam# [id number] Ordering Dr: Bharathi Wallace PROCEDURE: EXTREMITY LOWER WITHOUT CONTRA 10/17/2024 REASON [...] fibular fracture associated. No dislocation. Reading Location: [place] [address] CC: ADRYAN Holland; Dr. Dago Emery MD ~ Loss Prevention Consultant: Signed [facility]07-29-2025 Radiology Diagnostic study note [facility] Imaging Services [address] [place] [address] 152021 Ankle min 3 Views MR#: [id number] Acct: [id number] Name: BERNICE HASSAN Rep #: [id number] : 1945 F 79 From: Yoshi Montes MD PCP: Dr. Dago Emery MD Status: ADM I NO Study:Ankle min 3 Views Date of Exam: Exam# [id number] Ordering Dr: Bharathi Wallace PROCEDURE: LEFT ANKLE MIN 3 VIEWS 10/17/2024 [...] extension appreciated. Congruent ankle mortise. Reading Location: [id number]-[id number] CC: ADRYAN Holland; Dr. Dago Emery MD ~ Loss Prevention Consultant: Signed [facility]07-29-2025 Progress note Author Nela Rodrigo [facility] Note Date/Time October 17, 2024 4:03 pm [facility] Medical Records Department [address] [place] [address] Progress Note - Orthopedic 10/17/24 1554 MR#: [id number] Acct: [id number] Name: BERNICE HASSAN Rep #:[id number] : 1945 79 From: Nela CORNELIUS PCP: Dr. Dago Emery MD Status:ADM I NO [facility] Subjective Subjective Patient appears to be comfortable [...] hardware and expected postop changes. Reading Location: JHB-WBSLLPM-FM Physical Exam Narrative JUDE hose in place [...] we will plan to discharge patient to [facility]. Patientwas educated she can continue [...] Cosigner Signature (if applicable): CC: ~ Signed [facility] Work Phone: 1(495) [phone] Progress note [facility] Medical Records Department [address] [place] [address] Progress Note - Orthopedic 10/17/24 1554 MR#: [id number] Acct: [id number] Name: BERNICE HASSAN Rep #:[id number] : 1945 79 From: Nela CORNELIUS PCP: Dr. Dago Emery MD Status:ADM I NO Location: MS3 UX210-1 Subjective Subjective Patient appears to be comfortable [...] hardware and expected postop changes. Reading Location: JDS-JYEJEPV-VX Physical Exam Narrative JUDE hose in place [...] we will plan to discharge patient to [facility]. Patientwas educated she can continue to take her Zofran as needed for nausea and vomiting. Patient will need to get physical therapy done in the TCU. Patient does have 2- week follow-up visit scheduled to do a wound check. Patient was encouraged to call with any questions, concerns, new problems. 10/17/24 1603 Cosigner Signature (if applicable): CC: ~ Signed [facility]07-29-2025 Progress note Author See Valente [facility] Note Date/Time October 17, 2024 9:03 am [facility] Medical Records Department [address] [place] [address] Progress Note - Hospitalist 10/17/24 0857 MR#: [id number] Acct: [id number] Name: BERNICE HASSAN Rep #:[id number] : 1945 79 From: See ko MD PCP: Dr. Dago Emery MD Status:ADM I N Location: MS3 CG508-9 Subjective Subjective Doing well, no issues overnight. [...] hardware and expected postop changes. Reading Location: [facility] Physical Exam Narrative General: Alert, Oriented x3, [...] per Ortho Charges/Coding Visit Charges Inpatient E&M: 88389 Subs Hosp L2 10/17/24 0903 <Electronically signed by See Valente MD> Cosigner Signature (if applicable): CC: ~ Signed [facility] Work Phone: 1(622) 990-109007-29-2025 Progress note [facility] Medical Records Department [address] [place] [address] Progress Note - Hospitalist 10/17/24 0857 MR#: [id number] Acct: [id number] Name: BERNICE HASSAN Rep #:[id number] : 1945 79 From: See ko MD PCP: Dr. Dago Emery MD Status:ADM I N Location: [place] [address] Subjective Subjective Doing well, no issues overnight. [...] hardware and expected postop changes. Reading Location: [facility] Physical Exam Narrative General: Alert, Oriented x3, [...] per Ortho Charges/Coding Visit Charges Inpatient E&M: 10834 Subs Hosp L2 10/17/24 0903 Cosigner Signature (if applicable): CC: ~ Signed [facility]07-28-2025 Consult note Author Saulo Bullock [facility] Note Date/Time October 16, 2024 8:29 pm [facility] Medical Records Department [address] [place] [address] Consultation - Hospitalist 10/16/241953 MR#: [id number] Acct: [id number] Name: BERNICE HASSAN Rep #:[id number] : 1945 79 From: Saulo desai DO PCP: Dr. Dago Emery MD Status:ADM I N Location: [place] [address] Assessment & Plan Assessment/Plan (1) Status post total left knee replacement: PLAN: Plan Patient is an 79-year-old female who presented [facility] on 10/16/2024 for planned left total [...] Consultation: Postoperative medical management HPI Narrative: BERNICE HASSAN, is a 79 F who presented to [facility] on 10/16/2024 for planned left knee [...] Denied any other pain or discomfort currently. [facility] Medical History Cardiology follow-up encounter Wears glasses [...] surgery Social History household members: [facility] Smoking Status: Never smoker second hand exposure: No alcohol intake: never substance use type: does not use justice/sikh: Adventist seatbelt use: always do you feel safe [...] hardware and expected postop changes. Reading Location: SUQ-IVFLRIT-RV Charges/Coding Visit Charges Inpatient E&M: 94130 Subs Hosp L2 10/16/242028 <Electronically signed by Saulo Bulolck DO> Cosigner Signature (if applicable): CC: Dr. Geo Rodriguez MD; Dr. Dago Emery MD~ Signed [facility] Work Phone: 1([phone]) 945-158807-28-2025 Consult note Author Ki Cabrera [facility] Note Date/Time October 16, 2024 6:50 pm [facility] Medical Records Department [address] [place] [address] Anesthesia Postop Eval I 10/16/24 1849 MR#: [id number] Acct: [id number] Name: BERNICE HASSAN Rep #:[id number] : 1945 79 From: Ki Cabrera MD PCP: Dr. Dago Emery MD Status:ADM I N Y Race: C Location: [place] [address] Anesthesia: Postop Eval I Current Vital Signs [...] Postop Eval 1 completed: Yes 10/16/24 1850 <Electronically signed by Ki Cabrera MD > Date _ Ki Cabrera MD Cosigner Signature: Date CC: ~ Signed [facility] Work Phone: 1(494) 480-247507-28-2025 Consult note Author Ki wali [facility] Note Date/Time October 16, 2024 6:50 pm [facility] Medical Records Department [address] [place] [address] Anesthesia Postop Eval II 10/16/241849 MR#: [id number] Acct: [id number] Name: BERNICE HASSAN Rep #:[id number] : 1945 79 From: Ki Cabrera MD PCP: Dr. Dago Emery MD Status:ADM I N Y Race: C Location: [place] [address] Anesthesia Postop Eval I Sum Postop Eval [...] MD Cosigner Signature: Date CC: ~ Signed [facility] Work Phone: 1([phone]) 409-976307-28-2025 Consult note [facility] Medical Records Department [address] [place] [address] Consultation - Hospitalist 10/16/241953 MR#: [id number] Acct: [id number] Name: HASSANBERNICE K Rep #:[id number] : 1945 79 From: Saulo desai DO PCP: Dr. Dago Emery MD Status:ADM I N Location: [place] [address] Assessment & Plan Assessment/Plan (1) Status post total left knee replacement: PLAN: Plan Patient is an 79-year-old female who presented [facility] on 10/16/2024 for planned left total [...] Consultation: Postoperative medical management HPI Narrative: BERNICE HASSAN, is a 79 F who presented to [facility] on 10/16/2024 for planned left knee [...] Denied any other pain or discomfort currently. [facility] Medical History Cardiology follow-up encounter Wears glasses [...] surgery Social History household members: none housing: [facility] Smoking Status: Never smoker second hand exposure: No alcohol intake: never substance use type: does not use justice/sikh: Adventist seatbelt use: always do you feel safe [...] hardware and expected postop changes. Reading Location: VXZ-BDNNHUE-XT Charges/Coding Visit Charges Inpatient E&M: 68225 Subs Hosp L2 10/16/242028 Cosigner Signature (if applicable): CC: Dr. Geo Rodriguez MD; Dr. Dago Emery MD~ Signed [facility]07-28-2025 Radiology Diagnostic study note [facility] Imaging Services [address] [place], [place] [address] Knee 1 or 2 Views MR#: [id number] Acct: [id number] Name: BERNICE HASSAN Rep #: [id number] : 1945 F 79 From: Yoshi Montes MD PCP: Dr. Dago Emery MD Status: ADM I N Study:Knee 1 or 2 Views Date of Exam: Exam# [id number] Ordering Dr: Grayson Rodriguez MD PROCEDURE: LEFT [...] hardware and expected postop changes. Reading Location: DBK-[id number]-MB CC: Dr. Geo Rodriguez MD; Dr. Dago Emery MD ~ Loss Prevention Consultant: Signed [facility]07-28-2025 Consult note [facility] Medical Records Department [address] [place] [address] Anesthesia Postop Eval I 10/16/24 1849 MR#: [id number] Acct: [id number] Name: BERNICE HASSAN Rep #:[id number] : 1945 79 From: Ki Cabrera MD PCP: Dr. Dago Emery MD Status:ADM I N Y Race: C Location: [place] [address] Anesthesia: Postop Eval I Current Vital Signs [...] 1850 > Date _ Ki Cabrera MD [facility] Signature: Date CC: ~ Signed [facility]07-28-2025 Consult note [facility] Medical Records Department [address] [facility] [place] [address] Anesthesia Postop Eval II 10/16/241849 MR#: [id number] Acct: [id number] Name: BERNICE HASSAN Rep #:[id number] : 1945 79 From: Ki Cabrera MD PCP: Dr. Dago Emery MD Status:ADM I N Y Race: C Location: [place] [address] Anesthesia Postop Eval I Sum Postop Eval [...] MD Cosigner Signature: Date CC: ~ Signed [facility]07-28-2025 Consult note Author Ki Cabrera [facility] Note Date/Time October 16, 2024 10:5 1am [facility] Medical Records Department [address] [place] [address] Pre-Anesthesia Evaluation 10/16/24 1050 MR#: [id number] Acct: [id number] Name: BERNICE HASSAN Rep #:[id number] : 1945 79 From: Ki Cabrera MD PCP: Dr. Dago Emery MD Status:REG S DC Y Race: C Location: [place] [address] ASA Classification* ASA Classification ASA Classification: 2 [...] KNEE ARTHROPLASTY Anesthesia History Anesthesia History - box car bracer: Anesthesia History - box car bracer Hx Hospitalization No 10/04/24 13:47 Any Problems [...] take am of surgery PONV PONV - box car bracer: PONV - box car bracer Female Yes 10/04/24 13:47 HX of Motion [...] 10/11/24 15:05 Respiratory Assessment Respiratory Assessment - box car bracer: Respiratory Tract Infection Hx - box car bracer Hx Respiratory Tract Infection No 10/04/24 13:47 STOP Sleep Apnea STOP Sleep Apnea - box car bracer: STOP Sleep Apnea - box car bracer Hx Hypertension Yes: CONTROLLED WITH MED 10/04/24 [...] Tobacco Use History Tobacco Use History - box car bracer: Tobacco Use History - box car bracer Tobacco Use Smoking Status Never smoker 10/04/24 13:47 Hx Tobacco Use No 10/04/24 13:47 Years Smoking Packs Smoked per Day Smoking Cessation Date was within the last 15 years Hx Smoking Cessation Date Hx Smoking Cessation Counseling Hematologic Medial History Hematologic Hx - box car bracer: Hematologic Medical Hx - ear flap binder Hx of Blood Transfusion No 10/04/24 13:47 [...] confused, unrespo /Reproduction History /Reproductive History - box car bracer: /Reproductive Hx- box car bracer Hx Now No 10/04/24 13:47 Gestational Age [...] never substance use type: does not use justice/sikh: Adventist seatbelt use: always do you feel safe at home: Yes Review of Systems (Anesthesia) ROS Narrative System reviewed and no additional complaints, except as documented. 10/16/24 1051 <Electronically signed by Ki Cabrera MD > Date _ Ki Cabrera MD Cosigner Signature: Date CC: ~ Signed [facility] Work Phone: 1(165) 677-971307-28-2025 History and physical note Author N[facility] Note Date/Time October 16, 2024 10:3 7am [facility] Medical Records Department [address] [place] [address] History & Physical Exam 10/13/24 1655 MR#: [id number] Acct: [id number] Name: HASSANBERNICE K Rep #:[id number] : 1945 79 From: Nela CORNELIUS PCP: Dr. Dago Emery MD Status:REG S WI Location: [place] [address] History and Physical History and Physical Patient Name: Bernice SimonPaige JennifersDOB: 1945 From: NELA WALLACE PA-C DATE OF PRE-OPERATIVE EXAM: 10/12/2024 DATE [...] Surgical Hx: LT Hip ORIF - (04/17/2014) JWG @ [facility] LT Leg - (2007) Knee Replacement RT - (09/23/2022) SAW RT TKR ROBOTIC AT [facility] Anesthesia Complications: None Assistive Devices: Glasses, Walker Reviewed, no changes. 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 Personal Habits: Cigarette Use: Never.Smokeless Tobacco: Never Used Smokeless Tobacco.E-Cigarette Use: Never used.Alcohol: Denies use.Drug Use: Denies Use.Enjoy Exercising: Never Exercises. Reviewed, no changes. VITALS: Ht: 63" Wt: 190lb Wt k.184 BMI: 33.7 BP: [...] Dictated on admission Date: Time: Signature: 10/13/24 7821 <Electronically signed by Nela CORNELIUS> Cosigner Signature [...] MD; Dr. Dago Emery MD ~* Signed [facility] Work Phone: 1(156) 795-262007-28-2025 Consult note [facility] Medical Records Department [address] [place] [address] Pre-Anesthesia Evaluation 10/16/24 1050 MR#: [id number] Acct: [id number] Name: BERNICE HASSAN Rep #:[id number] : 1945 79 From: Ki Cabrera MD PCP: Dr. Dago Emery MD Status:REG S DC Y Race: C Location: [place] [address] ASA Classification* ASA Classification ASA Classification: 2 [...] KNEE ARTHROPLASTY Anesthesia History Anesthesia History - box car bracer: Anesthesia History - box car bracer Hx Hospitalization No 10/04/24 13:47 Any Problems [...] take am of surgery PONV PONV - box car bracer: PONV - box car bracer Female Yes 10/04/24 13:47 HX of Motion [...] 10/11/24 15:05 Respiratory Assessment Respiratory Assessment - box car bracer: Respiratory Tract Infection Hx - box car bracer Hx Respiratory Tract Infection No 10/04/24 13:47 STOP Sleep Apnea STOP Sleep Apnea - box car bracer: STOP Sleep Apnea - box car bracer Hx Hypertension Yes: CONTROLLED WITH MED 10/04/24 [...] Tobacco Use History Tobacco Use History - box car bracer: Tobacco Use History - box car bracer Tobacco Use Smoking Status Never smoker 10/04/24 13:47 Hx Tobacco Use No 10/04/24 13:47 Years Smoking Packs Smoked per Day Smoking Cessation Date was within the last 15 years Hx Smoking Cessation Date Hx Smoking Cessation Counseling Hematologic Medial History Hematologic Hx - box car bracer: Hematologic Medical Hx - ear flap binder Hx of Blood Transfusion No 10/04/24 13:47 [...] confused, unrespo /Reproduction History /Reproductive History - box car bracer: /Reproductive Hx- box car bracer Hx Now No 10/04/24 13:47 Gestational Age [...] PRN PRN BG>/= 180, SEE PROTOCOL Protocol PFS Medical History Cardiology follow-up encounter Wears glasses [...] surgery Social History household members: [facility] Smoking Status: Never smoker second hand exposure: No alcohol intake: never substance use type: does not use justice/sikh: Adventist seatbelt use: always do you feel safe at home: Yes Review of Systems (Anesthesia) ROS Narrative System reviewed and no additional complaints, except as documented. 10/16/24 1051 > Date _ Ki Cabrera MD Cosigner Signature: Date CC: ~ Signed [facility]07-28-2025 History and physical note [facility] Medical Records Department [address] [place] [address] History & Physical Exam 10/13/24 3852 MR#: [id number] Acct: [id number] Name: BERNICE HASSAN Rep #:[id number] : 1945 79 From: Nela CORNELIUS PCP: Dr. Dago Emery MD Status:REG S DC Location: [place] [address] History and Physical History and Physical Patient Name: Bernice RodriguezsDOB: 1945 From: NELA WALLACE PA-C DATE OF PRE-OPERATIVE EXAM: 10/12/2024 DATE [...] LT Hip ORIF - (04/17/2014) MAYAG @ [facility] LT Leg - (2007) Knee Replacement RT - (09/23/2022) SAW RT TKR ROBOTIC AT [facility] Anesthesia Complications: None Assistive Devices: Glasses, Walker Reviewed, no changes. 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 Personal Habits: Cigarette Use: Never.Smokeless Tobacco: Never Used Smokeless Tobacco.E-Cigarette Use: Never used.Alcohol: Denies use.Drug Use: Denies Use.Enjoy Exercising: Never Exercises. Reviewed, no changes. VITALS: Ht: 63" Wt: 190lb Wt k.184 BMI: 33.7 BP: [...] MD; Dr. Dago Emery MD ~* Signed [facility]07-25-2025 [facility] Medical Records Department [address] [place] [address] History Physical Exam 10/13/241654 MR#: [id number] Acct: [id number] Name: BERNICE HASSAN Rep #: [id number] : 1945 79 From: Nela CORNELIUS PCP: Dr. Dago Emery MD Status:[facility] Location: [place] [address] History and Physical History and Physical Patient Name: Bernice RodriguezsDOB: 1945 From: NELA WALLACE PA-C DATE OF PRE-OPERATIVE EXAM: 10/12/2024 DATE [...] LT Hip ORIF - (04/17/2014) OPAL @ [facility] LT Leg - (2007) Knee Replacement RT - (09/23/2022) SAW RT TKR ROBOTIC AT [facility] Anesthesia Complications: None Assistive Devices: Glasses, Walker Reviewed, no changes. 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 Personal Habits: Cigarette Use: Never.Smokeless Tobacco: Never Used Smokeless Tobacco.E-Cigarette Use: Never used.Alcohol: Denies use.Drug Use: Denies Use.Enjoy Exercising: Never Exercises. Reviewed, no changes. VITALS: Ht: 63" Wt: 190lb Wt k.184 BMI: 33.7 BP: [...] Tenderness palpation of the (more content not included)...[facility] 10-11-2024 Progress [facility] [place] [address] OFFICE VISIT Date of Service: 10/11/24 1453 MR#: [id number] Acct: [id number] Name: BERNICE HASSAN Rep #: [id number] : 1945 From: Carolyn Hernandez ch LINING LAYER LINING LAYER-C Age/Sex: 79/F Location: [facility] Status: Signed HPI Subjective Date of [...] episodes of overt bleeding, + bruises easily. [facility] Medical History (Updated 10/04/24 @ 13:55 by Joanie Rdogers) Cardiology follow-up encounter Wears glasses Post-menopausal Depression [...] never substance use type: does not use justice/sikh: Adventist seatbelt use: always do you feel safe [...] the past year?: No 10/11/24 1522 h LINING LAYER LINING LAYER-C> Date _ Carolyn Ruvalcaba LINING LAYER LINING LAYER-C Cosigner Signature: Date (if applicable) CC: ~ [facility]07-23-2025 Progress note Author Carolyn Ruvalcaba [facility] Note Date/Time October 11, 2024 3:22 pm [facility] [address] [address] OFFICE VISIT Date of Service: 10/11/24 1453 MR#: [id number] Acct: [id number] Name: BERNICE HASSAN Rep #: [id number] : 1945 From: Carolyn Hernandez LINING LAYER LINING LAYER-C Age/Sex: 79/F Location: [facility] Status: Signed HPI Subjective Date of [...] episodes of overt bleeding, + bruises easily. [facility] Medical History (Updated 10/04/24 @ 13:55 by [...] never substance use type: does not use justice/sikh: Adventist seatbelt use: always do you feel safe [...] No 10/11/24 1522 <Electronically signed by Carolyn HAINES> Date _ Carolyn HAINES Cosigner Signature: Date (if applicable) CC: ~ [place] [employer] [facility] Work Phone: 1(847) 138-647307-02-2025 Evaluation note* Diagnosis Onset Date Resolution Status Admit Date Abnormal ECG acute September 20 2:25pm Pre-op [...] 11, 2024 2:15pm Leukocytosis resolved October 11, 2:15pm Thrombocytosis deleted October 11, 2024 2:15pm Status post total left knee replacement acute October 18, 2024 1:14pm Anemia acute October 21 2:09pm Debility acute October 21 2:09pm Essential (primary) hypertension acu te October 21, 2024 2:09pm Kidney stones acute October 21, 2024 2:09pm Status post total left knee replacement acute October 21, 2024 2:09pm Vitamin D deficiency acute Augu 2024 2:09pm Hypothyroidism chronic October 2:09pm Myeloproliferative disorder chronic October 21, 2024 2:09pm Anemia acute November 01, 2 025 2:50pm [facility] Work Phone: 1(944) 937-443205-14-2025 Radiology Diagnostic study note [facility] Imaging Services [address] [place] [address] Extremity Lower without Contra MR#: [id number] Acct: [id number] Name: BERNICE HASSAN Rep #: [id number] : 1945 F 79 From: Myron Newton MD PCP: Dr. Dago Emery MD Status: REG C GOYO Study:Extremity Lower without Contra Date of Exam: 08/01/24 Exam# [id number] Ordering Dr: Grayson Rodriguez MD PROCEDURE: EXTREMITY [...] left tibia without apparent complication. Reading Location: [place] [address] CC: Dr. Geo Rodriguez MD; Dr. Dago Emery MD ~ Loss Prevention Consultant: Signed [facility]05-02-2025 Consult note Author Franklyn Lopez [facility] Note Date/Time November 01, 2024 4: 13pm [facility] Medical Records Department [address] [place] [address] Anesthesia Postop Eval I 11/01/241612 MR#: [id number] Acct: [id number] Name: BERNICE HASSAN Rep #:[id number] : 1945 79 From: Franklyn CHAMBERS PCP: Dr. Dago Emery MD Status:REG S DC Y Race: C Location: [place] [address] Anesthesia: Postop Eval I Current Vital Signs Temperature: 97.9 F Pulse Rate: 55 Blood Pressure: 117/53 Respiratory Rate: 14 Pulse Ox: 97 Oxygen Delivery Method: Room Air Assessment Airway patent: Yes Spontaneous unlabored respirations: Yes Mental status: Awake and Calm nausea: No Vomiting: No Anesthesia Complication: No Fluid Hydration Crystalloid volume administer (ml): 200 Total IV fluid infused: 200 Progress Note Anesthesia document: Postop Eval 1 completed: Yes 11/01/241612 <Electronically signed by Franklyn Lopez CRNA> Date _ Franklyn Lopez CRNA Cosigner Signature: Date CC: ~ Signed [facility] Work Phone: 1(323) 428-724504-21-2025 Evaluation note* Diagnosis Onset Date Resolution Status Admit Date Essential thrombocythemia chronic July 10, 2024 12:43pm Myeloproliferative disorder chronic July 10, 2024 12:43pm Essential thrombocythemia chronic July 10, 2024 12:45pm Myeloproliferative disorder chronic July 10, 2024 12:45pm Educational circumstance resolved July 10, 2024 12:45pm Erythrocytosis resolved June 12:45pm Leukocytosis resolved July 10, 2024 12:45pm Thrombocytosis deleted June 12:45pm [facility] Work Phone: 1([phone]) 859-693404-21-2025 Evaluation note* Diagnosis Onset Date Resolution Status [...] 11, 2024 2:15pm Leukocytosis resolved October 11, 2:15pm Thrombocytosis deleted October 11, 2024 2:15pm [facility] Work Phone: 1(545) 545-511404-21-2025 Evaluation note* Diagnosis Onset Date Resolution Status [...] knee replacement acute October 18, 2024 1:14pm [facility] Work Phone: 1(346) 572-279604-21-2025 Evaluation note* Diagnosis Onset Date Resolution Status [...] knee replacement acute October 18, 2024 1:14pm Anemia acute October 21 2:09pm Debility acute October 21 2:09pm Essential (primary) hypertension acu te October 21, 2024 2:09pm Kidney stones acute October 21, 2024 2:09pm Status post total left knee replacement acute October 21, 2024 2:09pm Vitamin D deficiency acute Aug2024 2:09pm Hypothyroidism chronic October 2:09pm Myeloproliferative disorder chronic October 21, 2024 2:09pm Anemia acute November 01, 2 025 2:50pm [facility] Work Phone: Consult note Author Avery Rod [facility] Note Date/Time November 01, 2024 4: 03pm [facility] Medical Records Department [address] [place] [address] Pre-Anesthesia Evaluation 11/01/24 1539 MR#: [id number] Acct: [id number] Name: BERNICE HASSAN Rep #:[id number] : 1945 79 From: Avery Crocker PCP: Dr. Dago Emery MD Status:REG S DC Y Race: C Location: [place] [address] ASA Classification* ASA Classification ASA Classification: 3 Assessment & Plan Anesthesia* Anesthesia Assessment Anesthesia [...] anesthesia risk assessments. Anesthesia Type Anesthesia Type: MAC History Source History Obtained from:: Patient and Chart Anesthesia Focused Assessment* Temperature: 99 F Pulse Rate: 61 Blood Pressure: 170/74 Respiratory Rate: 16 Pulse Ox: 96 Oxygen Delivery Method: Room Air Airway Assessment Mouth opens: >3 cm Mallampati Score: II Teeth Condition: Caps/Crowns and Missing Neck Range of motion (ROM): Limited ROM Labs Anesthesia Preop lab: CBC WBC 4.7 K/mm3 (4.4-11.0) 10/27/24 05:29 10/27/24 RBC 2.16 M/mm3 (4.2-5.4) L 10/27/24 05:29 10/27/24 Hgb 8.4 g/dL (12.0-15.0) L 10/31/24 06:55 10/31/24 Hct 24.8 % (37-47) L 10/31/24 06:55 10/31/24 Plt Count 230 K/mm3 (150-450) 10/27/24 05:29 10/27/24 CHEMISTRY Potassium 4.5 mmol/L (3.3-5.1) 10/27/24 05:29 10/27/24 Sodium 133 mmol/L (133-145) 10/27/24 05:29 10/27/24 Magnesium 2.3 mg/dL (1.5-2.2) H 07/31/24 14:22 07/31/24 BUN 28 mg/dL (4-19) H 10/27/24 05:29 10/27/24 Creatinine 1.16 mg/dL (0.70-1.20) 10/27/24 05:29 10/27/24 Glucose 85 mg/dL (70-99) 10/27/24 05:29 10/27/24 POC Glucose 120 mg/dL (74-106) H 10/19/24 12:59 10/19/24 TSH 1.470 uIU/mL (0.300-4.200) 07/31/24 14:22 07/20 05/16 COAG PT 12.6 SECONDS (11.7-14.9) 07/31/24 14:22 Pre-Assessment Diagnosis/Proposed Procedure Planned Operative Procedure(s): EGD Anesthesia History Anesthesia History - box car bracer: Anesthesia History - box car bracer Hx Hospitalization Yes 11/01/24 15:07 Any Problems With Anesthesia No 11/01/24 15:07 Cholinesterase deficiency No 11/01/24 15:07 You/Your Family Experience No 11/01/24 15:07 fever (hyperthermia) with Relationship Recent Exposure to Contagious No 11/01/24 15:07 Disease Does patient have nerve No 11/01/24 15:07 stimulator Patient instructed to have device shut off --Does patient have Pacemaker No 11/01/24 15:07 or ICD? When Was Last Pacemaker Check QUESTION #4 FULL TEXT: You/Your Family Experience fever (hyperthermia) with Anesthesia Last Oral Intake Last Oral intake: Last Oral Intake NPO since Meds taken in AM with sips of water? Meds patient instructed to take am of surgery PONV PONV - box car bracer: PONV - box car bracer Female Yes 11/01/24 15:07 HX of Motion Sickness No 11/01/24 15:07 HX of N/V After Surgery Yes 11/01/24 15:07 Non-Smoker Yes 11/01/24 15:07 Duration of Surgery greater No 11/01/24 15:07 than 60 minutes Number of Risk Factors 3 11/01/24 15:07 PONV Score Moderate Risk 11/01/24 15:07 Height & Weight Height & Weight: Anesthesia: Height & Weight Height 5 ft 5 in 11/01/24 15:07 Weight: 88.904 kg 11/01/24 15:07 Body Mass Index (BMI) 32.5 11/01/24 15:07 Respiratory Assessment Respiratory Assessment - box car bracer: Respiratory Tract Infection Hx - box car bracer Hx Respiratory Tract Infection No 11/01/24 15:07 STOP Sleep Apnea STOP Sleep Apnea - box car bracer: STOP Sleep Apnea - box car bracer Hx Hypertension Yes 11/01/24 15:07 Hx Sleep Apnea No 11/01/24 15:07 CPAP No 10/16/24 18:35 BIPAP No 10/04/24 13:47 Do you snore loudly (louder No 11/01/24 15:07 than talking or can be heard Do you often feel tired/ No 11/01/24 15:07 fatigued/ sleepy during daytime? Has anyone observed you stop No 11/01/24 15:07 breathing during sleep? STOP Results Negative 11/01/24 15:07 QUESTION #5 FULL TEXT : Do you snore loudly (louder than talking or can be heard through closed doors)? Tobacco Use History Tobacco Use History - box car bracer: Tobacco Use History - box car bracer Tobacco Use Smoking Status Never smoker 11/01/24 15:07 Hx Tobacco Use No 11/01/24 15:07 Years Smoking Packs Smoked per Day Smoking Cessation Date was within the last 15 years Hx Smoking Cessation Date Hx Smoking Cessation Counseling Hematologic Medial History Hematologic Hx - box car bracer: Hematologic Medical Hx - ear flap binder Hx of Blood Transfusion No 11/01/24 15:07 Hx of Transfusion in last 3 No 11/01/24 15:07 Months Date of Last Transfusion (if within last 3 months) Ever experience any problems No 11/01/24 15:07 with transfusion(s)? Specify any problems Hx of Preganancy in last 3 No 11/01/24 15:07 Months Nurse Filling Out Transfusion [email or web address] 11/01/24 15:07 & Questions: Date: 11/01/24 11/01/24 15:07 Time: 15:09 11/01/24 15:07 Patient unable to answer at this time (ie. confused, unrespo /Reproduction History /Reproductive History - box car bracer: /Reproductive Hx- box car bracer Hx Now Gestational Age (in weeks): EDC: Hx Hx Para Hx Section SAB No 10/04/24 13:47 Active Medications Active Medications: Current Medications Generic Name Dose Route Start Last Admin Trade Name Freq PRN Reason Stop Dose Admin Lactated Ringer's 1,000 mls @ 15 mls/hr 11/01/24 15:00 11/01/24 15:19 IV 15 mls/hr .Q48H KENDRA Administration PFSH Medical History Cardiology follow-up encounter Wears [...] mcg tablet 50 mcg PO DAILY thyroid 10/31/24 History (Levoxyl) losartan 100 mg tablet 100 mg PO DAILY bp 06/06/18 11/01/24 History amlodipine 5 mg tablet 5 mg PO DAILY bp 07/21/18 History cholecalciferol (vitamin D3) 25 1,000 unit PO DAILY pravin michael 10/26/19 10/31/24 History mcg (1,000 unit) tablet atenolol 50 mg tablet 50 mg PO DAILY@0800 blood 11/01/24 Rx pressure/heart rate 30 days #30 tabs hydroxyurea 500 mg capsule 1,000 mg (2 x 500 mg) PO 10/31/24 Rx MOTUTHFRSA chemo #100 caps acetaminophen 500 mg tablet 1,000 mg (2 x 500 mg) PO Q 8 pain 10/21/24 10/31/24 Rx #0 tabs aspirin 81 mg capsule 81 mg PO BIDCM blood thinner #60 10/21/24 10/31/24 Rx caps famotidine 20 mg tablet 20 mg PO DAILY stomach 30 da ys #0 10/21/24 11/01/24 Rx tabs folic acid 1 mg tablet 1 mg PO BREAKFAST supplement 20 10/21/24 10/31/24 Rx days #0 tabs oxycodone 5 mg tablet 5 - 10 mg PO Q4H PRN PRN Lukas n Score 10/21/24 11/01/24 History citalopram 10 mg tablet (Celexa) 10 mg PO DAILY 11/01/24 History lorazepam 0.5 mg tablet (Ativan) 0.5 mg PO Q4H PRN anx iety 11/01/24 10/31/24 History magnesium citrate (Citrate of 300 ml PO DAILY PRN cons tipation 11/01/24 Unknown History Magnesia oral) ondansetron 4 mg disintegrating 4 mg PO Q6H PRN nausea and vomiting 11/01/24 10/31/24 History tablet senna-docusate sodium tablet 2 tab PO BID 11/01/2403/15 History Allergy/AdvReac Type Severity Reaction Status Date / Time promethazine HCl (From Allergy Severe Other Verified 11/01/24 15:06 Phenergan) Penicillins AdvReac Severe Swelling Verified 11/01/24 15:06 red dye AdvReac Severe Unknown Verified 11/01/24 15:06 Tetanus Vaccines and Toxoid AdvReac Intermediate NEEDS Verified 11/01/24 15:06 FOLLOW-UP Family History Father Rheumatoid arthritis Surgical History History of total left knee replacement History of total right knee replacement Hx of right cataract extraction Hx of left cataract extraction History of breast lump removal History of hip surgery Social History household members: none housing: condominium Smoking Status: Never smoker second hand exposure: No alcohol intake: never substance use type: does not use justice/sikh: Adventist seatbelt use: always do you feel safe at home: Yes Review of Systems (Anesthesia) ROS Narrative System reviewed and no additional complaints, except as documented. 11/01/24 1603 <Electronically signed by Avery Rod MD> Date _ Avery Rod MD Cosigner Signature: Date CC: ~ Signed [facility] Work Phone: consult note Author Dinorah Headley [facility] Note Date/Time November 01, 2024 4: 50pm [facility] Medical Records Department [address] [place] [address] Anesthesia Postop Eval II 11/01/24 1633 MR#: [id number] Acct: [id number] Name: BERNICE HASSAN Rep #:[id number] : 1945 79 From: Dinorah Headley CRNA PCP: Dr. Dago Emery MD Status:REG S DC Y Race: C Location: [place] [address] Anesthesia Postop Eval I Sum Postop Eval Completion status Anesthesia document: Postop Eval 1 completed: Yes Anesthesia Postop Eval I Summary Anesthesia Postop Eval I Summary: Anesthesia Postop Eval I: Assessment Summary Airway patent Yes 11/01/24 16:13 PHOTOGRAPHY [email or web address] Spontaneous unlabored Yes 11/01/24 16:13 PHOTOGRAPHY [email or web address] respirations Mental status Awake,Calm 11/01/24 16:13 PHOTOGRAPHY [email or web address] nausea No 11/01/24 16:13 PHOTOGRAPHY [email or web address] Vomiting No 11/01/24 16:13 PHOTOGRAPHY [email or web address] Anesthesia Postop Eval I: Fluid Summary Crystalloid volume administer 200 11/01/24 16:13 PHOTOGRAPHY [email or web address] (ml) Colloids volume administered ( ml) Blood Product volume administered (ml) Total IV fluid infused 200 11/01/24 16:13 PHOTOGRAPHY [email or web address] Anesthesia Postop Eval I: Summary Notes Anesthesia Complication No 11/01/24 16:13 PHOTOGRAPHY [email or web address] Anesthesia Complication Comment: Post-operative progress note Anesthesia: Postop Eval II Evaluation Mental status: Awake Pain Level: 0 nausea: No Vomiting: No 11/01/241632 <Electronically signed by Dinorah jarquin CRNA> Date _ Dinorah Headley PHOTOGRAPHY SPOTTER Cosigner Signature: Date CC: ~ Signed [facility] Work Phone: Discharge summary Author Dr. Yanez [facility] April 12, 2022 10:08am Note Date/Time April 12, 2022 8 :45am [facility] Medical Records Department [address] [place] [address] Emergency Department Summary 04/12/22 MR#: [id number] Acct: [id number] Name: BERNICE HASSAN Rep #:[id number] : 1945 76 From: Garret Yanez DO [...] states he has a history of osteoarthritis. [facility] Medical History Anxiety Fracture of left [...] never substance use type: does not use justice/sikh: Adventist seatbelt use: always do you feel safe [...] 9:33 EST Reading Location ID and State: [address] [place] [address] , Service support , Discharge Plan Triage [...] your Primary Care Provider. Call [facility] ([phone]) or report to the closest Emergency Room. Call 911 if necessary. 04/12/22 1008 <Electronically signed by Garret Yanez DO> Cosigner Signature (if applicable): CC: Dr. Dago Emery MD ~ Signed [facility] Work Phone: Evaluation note* Diagnosis Onset Date Resolution Status Essential thrombocythemia ch ronic Myeloproliferative disorder chronic Essential thrombocythemia ch ronic Myeloproliferative disorder chronic Educational circumstance res olved Erythrocytosis resolved Leukocytosis resolved [facility] Work Phone: Evaluation note* Diagnosis Onset Date Resolution Status Essential thrombocythemia ch ronic Myeloproliferative disorder chronic Educational circumstance res olved Erythrocytosis resolved Leukocytosis resolved Essential thrombocythemia ch ronic Myeloproliferative disorder chronic [facility] Work Phone: Evaluation note* Diagnosis Onset Date Resolution Status BMI 33.0-33.9,adult acute Debility acute Status post total right knee replacement acute Essential thrombocythemia ch ronic Hyperlipidemia chronic Hypertension chronic Hypothyroidism chronic Essential thrombocythemia ch ronic Myeloproliferative disorder chronic Essential thrombocythemia ch ronic Myeloproliferative disorder chronic Educational circumstance res olved Erythrocytosis resolved Leukocytosis resolved [facility] Work Phone: History and physical note Author Pio Friend [facility] Note Date/Time November 01, 2024 3: 26pm [facility] Medical Records Department [address] [place] [address] History & Physical Exam 11/01/24 1523 MR#: [id number] Acct: [id number] Name: BERNICE HASSAN Rep #:[id number] : 1945 79 From: Pio Webb DO PCP: Dr. Dago Emery MD Status:REG S [place] Location: [place] [address] HPI - General General Date of Admission: 11/01/24 Date of Service: 11/01/24 Chief Complaint: Anemia HPI Narrative BERNICE HASSAN, is a 79 F who presents for: Anemia She currently is currently in rehab. She has a medical history notable for morbid obesity, hypertension, dyslipidemia, disabling degenerative joint diseaseof the lower extremities presenting with an abnormal CBC notably persistent thrombocytosis. She has no known chronic infectious or inflammatory diseases. 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 She is currently taking hydroxyurea and [address] Rodriguez performed left total knee replacement, removal left tibial nail, removal of 4 interlocking screws. All postoperative course has been complicatedby an acute distal tibial fracture. She remains on aspirin therapy and startingon doxycycline. I was asked to see her due to decreasing hemoglobin A1c providewith stools. Patient states she has had colonoscopy as part of recently but thelast 5 years. [facility] Medical History Cardiology follow-up encounter Wears glasses [...] mcg tablet 50 mcg PO DAILY thyroid 10/31/24 History (Levoxyl) losartan 100 mg tablet 100 mg PO DAILY bp 06/06/18 11/01/24 History amlodipine 5 mg tablet 5 mg PO DAILY bp 07/21/18 History cholecalciferol (vitamin D3) 25 1,000 unit PO DAILY pravin michael 10/26/19 10/31/24 History mcg (1,000 unit) tablet atenolol 50 mg tablet 50 mg PO DAILY@0800 blood 11/01/24 Rx pressure/heart rate 30 days #30 tabs hydroxyurea 500 mg capsule 1,000 mg (2 x 500 mg) PO 10/31/24 Rx MOTUTHFRSA chemo #100 caps acetaminophen 500 mg tablet 1,000 mg (2 x 500 mg) PO Q 8 pain 10/21/24 10/31/24 Rx #0 tabs aspirin 81 mg capsule 81 mg PO BIDCM blood thinner #60 10/21/24 10/31/24 Rx caps famotidine 20 mg tablet 20 mg PO DAILY stomach 30 da ys #0 10/21/24 11/01/24 Rx tabs folic acid 1 mg tablet 1 mg PO BREAKFAST supplement 20 10/21/24 10/31/24 Rx days #0 tabs oxycodone 5 mg tablet 5 - 10 mg PO Q4H PRN PRN Lukas n Score 10/21/24 11/01/24 History citalopram 10 mg tablet (Celexa) 10 mg PO DAILY 11/01/24 History lorazepam 0.5 mg tablet (Ativan) 0.5 mg PO Q4H PRN anx iety 11/01/24 10/31/24 History magnesium citrate (Citrate of 300 ml PO DAILY PRN cons tipation 11/01/24 Unknown History Magnesia oral) ondansetron 4 mg disintegrating 4 mg PO Q6H PRN nausea and vomiting 11/01/24 10/31/24 History tablet senna-docusate sodium tablet 2 tab PO BID 11/01/2403/15 History Allergy/AdvReac Type Severity Reaction Status Date / Time promethazine HCl (From Allergy Severe Other Verified 11/01/24 15:06 Phenergan) Penicillins AdvReac Severe Swelling Verified 11/01/24 15:06 red dye AdvReac Severe Unknown Verified 11/01/24 15:06 Tetanus Vaccines and Toxoid AdvReac Intermediate NEEDS Verified 11/01/24 15:06 FOLLOW-UP Family History Father Rheumatoid arthritis Surgical History History of total left knee replacement History of total right knee replacement Hx of right cataract extraction Hx of left cataract extraction History of breast lump removal History of hip surgery Social History household members: none housing: condominium Smoking Status: Never smoker second hand exposure: No alcohol intake: never substance use type: does not use justice/sikh: Adventist seatbelt use: always do you feel safe at home: Yes ROS Constitutional Constitutional: Denies fatigue, fever(s), poor appetite, weight gain or weight loss Gastrointestinal Gastrointestinal: Denies belching, bloating, change in bowel habits, change in stool character, chewing difficulty, coffee ground emesis, constipation, cramping, diarrhea, dyspepsia, dysphagia, early satiety, excessive flatus, fecalincontinence, heartburn, hematemesis, hematochezia, hemorrhoids, loose stools, melena, nausea, odynophagia, rectal bleeding, tenesmus, vomiting or weight changes Vital Signs Vital Signs Vital Signs: 11/01/24 15:07 11/01/24 15:07 Temperature 99 F Temperature Source Temporal Pulse Rate 61 Respiratory Rate 16 Respiratory Pattern Normal Blood Pressure 170/74 H Blood Pressure Mean 106 Blood Pressure Source Monitor Blood Pressure Position Semi-Fowlers Blood Pressure Location Right Arm Pulse Ox 96 Oxygen Delivery Method Room Air Weight Weight: 196 lb Body Mass Index (BMI) 32.5 Physical Exam Const alert, oriented x3, no apparent distress and healthy appearing General Appearance: cooperative GI normal to inspection, nondistended, normoactive bowel sounds, soft to palpation,non-tender and non-distended Percussion: normal to percussion Rectal Exam: deferred Assessment & Plan Assessment/Plan (1) Anemia: PLAN: Labs: Laboratory Results - last 24 hr 10/31/24 06:55: Hgb 8.4 L, Hct 24.8 L Micro: Microbiology 10/31/24 03:40 Stool Stool Occult Blood (BREA) - Final Occult Blood Positive Assessment & Plan Assessment/Plan (1) Anemia: PLAN: 79-year-old with essential thrombocythemia on hydroxyurea and aspirin status post right knee replacement and ankle fracture. She currently is possibly having acute blood loss anemia. She should undergo an upper endoscopy and is a colonoscopy for acute GI blood loss. She was explained alternatives, benefits, risks including not withstanding bleeding, infection, sepsis, perforation, need for surgery and . She will have an ASA 3. 11/01/24 1526 <Electronically signed by Pio Webb DO> Cosigner Signature (if applicable): CC: Dr. Dago Emery MD; Pio Webb DO~ Signed [facility] Work Phone: Hospital Discharge instructionsAmbulatory Orders* 12 Lead EKG [[facility]] Location: None Selected [facility] Work Phone: Hospital Discharge instructionsAdditional Instructions Discharge 11/28/2024 to [facility], intermediate, private pay, part B therapies.[facility] Work Phone: Reason for referral (narrative)No reason for referral information availableWooSt. [facility] Work Phone: Chief Complaint and Reason for [...] left knee replacement October 18, 2024 1:14pm Chief Complaint Admit Date 4 MO, LABS [...] KNEE A RTHROPLAST October 20, 2024 4:40pm ERAS,ROBOTIC ASSIST, L TOTAL KNEE ORTHOP LAST October 21, 2024 2:09pm ERAS,ROBOTIC ASSIST, L TOTAL KNEE ORTHOP LAST October 31, 2024 9:51am Reason for Visit Admit Date Essential thrombocythemia [...] left knee replacement October 18, 2024 1:14pm Anemia October 21, 2024 2:0 9pm Debility October 21, 2024 2:0 9pm Essential (primary) hypertension October 21, 2024 2:09pm Kidney stones October 21, 2024 2:0 9pm Status post total left knee replacement October 21, 2024 2:09pm Vitamin D deficiency October 21, 2024 2: 09pm Hypothyroidism October 21, 2024 2:0 9pm Myeloproliferative disorder October 21, 2024 2:09pm Anemia November 01, 2024 2: 50pm Chief Complaint Admit Date Encounter for other preprocedural examin ation August [...] KNEE A RTHROPLAST October 20, 2024 4:40pm ERAS,ROBOTIC ASSIST, L TOTAL KNEE ORTHOP LAST October 21, 2024 2:09pm ERAS,ROBOTIC ASSIST, L TOTAL KNEE ORTHOP LAST October 31, 2024 9:51am Reason for Visit Admit Date Abnormal ECG September 20, 2024 2:25p m [...] left knee replacement October 18, 2024 1:14pm Anemia October 21, 2024 2:0 9pm Debility October 21, 2024 2:0 9pm Essential (primary) hypertension October 21, 2024 2:09pm Kidney stones October 21, 2024 2:0 9pm Status post total left knee replacement October 21, 2024 2:09pm Vitamin D deficiency October 21, 2024 2: 09pm Hypothyroidism October 21, 2024 2:0 9pm Myeloproliferative disorder October 21, 2024 2:09pm Anemia November 01, 2024 2: 50pm Advance Directives Advance Directive Response Recorded Date/ Time Advance Directives Yes April 19, 2014 4:40pm Living Will No December 02, 2018 12:53pm Power of Nurse Infection Control No November 12:53pm Advance Directive Response Recorded Date/ Time Advance Directives Yes April 19, 2014 4:40pm Living Will No April 12 8:37am Power of Nurse Infection Control No Rosemary 22nd, 2023 8:37am Advance Directive Response Recorded Date/ Time Advance Directives Yes April 19, 2014 5:40pm Living Will No April 12 9:37am Power of Nurse Infection Control No April 12, 2022 9:37am Advance Directive Response Recorded Date/ Time Advance Directives Yes April 19, 2014 5:40pm Living Will Yes September 03, 2022 11:45am Power of Nurse Infection Control Yes September 03 11:45am Advance Directive Response Recorded Date/ Time Name of Medical Power of Nurse Infection Control Dianne Conley , sports attorney September 28, 2022 1:21pm Advance Directives Yes April 19, 2014 4:40pm Living Will Yes September 28, 2022 1:21pm Power of Nurse Infection Control Yes September 28 1:21pm Advance Directive Response Recorded Date/ Time Living Will No June 27, 2018 2:53pm Do you have a Healthcare Power of Nurse Infection Control? No June 27, 2018 2:53pm Advance Directives Yes April 19, 2014 5:40pm Advance Directive Response Recorded Date/ Time Living Will No June 27, 2018 2:53pm Do you have a Healthcare Power of Nurse Infection Control? No June 27, 2018 2:53pm Do you have a Healthcare Power of Nurse Infection Control? Yes October 16, 2024 8:13pm Advance Directives Yes April 19, 2014 5:40pm Advance Directive Response Recorded Date/ Time Living Will No June 27, 2018 2:53pm Do you have a Healthcare Pow er of Nurse Infection Control? No June 27, 2018 2:53pm Do you have a Healthcare Pow er of Nurse Infection Control? Yes October 23, 2024 3:05pm Name of Medical Power of Nurse Infection Control Lizzeth Matias, jon October 23, 2024 3:05pm Do you have a Healthcare Pow er of Nurse Infection Control? No November 01, 2024 3:07pm Do you have a Healthcare Pow er of Nurse Infection Control? Yes October 16, 2024 8:13pm Advance Directives [...] Care Provider, Referring Provider Active Carolyn Ruvalcaba LINING LAYER, LINING LAYER-C Attending Provider Active Team Status: Inactive Member [...] 2024 End: July 10, 2024 Carolyn Ruvalcaba LINING LAYER, LINING LAYER-C Attending Provider Active Start: July 10, 2024 [...] 2024 End: July 10, 2024 Carolyn Ruvalcaba LINING LAYER, LINING LAYER-C Attending Provider Active Start: July 10, 2024 [...] 2024 End: October 11, 2024 Carolyn Ruvalcaba LINING LAYER, LINING LAYER-C Attending Provider Active Start: October 11, 2024 [...] Provider Active Star t: October 20, 2024 Team Status: Active Member Role/Relationship Status Dates Dr. Dago Emery MD Primary Care Provider Active Start: October 17, 2024 Dr. eGo Rodriguez MD Admit Provider Active Sta rt: [...] Provider Active Start: October 18, 2024 Dr. eSe Valente MD Other Provider Active Start: October 18, 2024 Team Status: Active Member Role/Relationship Status [...] Provider Active Star t: October 20, 2024 Team Status: Active Member Role/Relationship Status Dates Dr. Dago Emery MD Primary Care Provider Active Start: October 21, 2024 Dr. Dago Emery MD Admit Provider Active Star t: October 21, 2024 Dr. Dago Emery MD Attending Provider Active Start: October 21, 2024 Team Status: Active Member Role/Relationship Status Dates Dr. Dago Emery MD Primary Care Provider Active Start: October 31, 2024 Dr. Dago Emery MD Admit Provider Active Star t: October 31, 2024 Dr. Dago Emery MD Other Provider Active Star t: October 31, 2024 Dr. Pio Webb DO Attending Provider Active Start: October 31, 2024 Team Status: Inactive Member Role/Relationship Status Dates Dr. Dago Emery MD Primary Care Provider Active Start: November 01, 2024 End: November 01, 2024 Dr. Dago Emery MD Referring Provider Active Start: November 01, 2024 End: November 01, 2024 Dr. Pio Webb DO Attending Provider Active Start: November 01, 2024 End: November 01, 2024 Team Status: Active Member Role/Relationship Status Dates Dr. Dago Emery MD Primary Care Provider Active Start: November 01, 2024 Dr. Dago Emery MD Referring Provider Active Start: November 01, 2024 Dr. Pio Webb DO Attending Provider Active Start: November 01, 2024 Dr. Pio Webb DO Other Provider Active St art: November 01, 2024 Team Status: Inactive Member Role/Relationship [...] 2024 End: October 11, 2024 Carolyn Ruvalcaba LINING LAYER, LINING LAYER-C Attending Provider Active Start: October 11, 2024 [...] Provider Active Star t: October 20, 2024 Team Status: Inactive Member Role/Relationship Status Dates Dr. Dago Emery MD Primary Care Provider Active Start: October 21, 2024 End: November 28, 2024 Dr. Dago Emery MD Admit Provider Active Star t: October 21, 2024 End: November 28, 2024 Dr. Dago Emery MD Attending Provider Active Start: October 21, 2024 End: November 28, 2024 Team Status: Active Member Role/Relationship Status Dates Dr. Dago Emery MD Primary Care Provider Active Start: October 31, 2024 Dr. Dago Emery MD Admit Provider Active Star t: October 31, 2024 Dr. Dago Emery MD Referring Provider Active Start: October 31, 2024 Dr. Dago Emery MD Other Provider Active Star t: October 31, 2024 Dr. Pio Webb DO Attending Provider Active Start: October 31, 2024 Team Status: Inactive Member Role/Relationship Status Dates Dr. Dago Emery MD Primary Care Provider Active Start: November 01, 2024 End: November 01, 2024 Dr. Dago Emery MD Referring Provider Active Start: November 01, 2024 End: November 01, 2024 Dr. Pio Webb DO Attending Provider Active Start: November 01, 2024 End: November 01, 2024 Team Status: Active Member Role/Relationship Status Dates Dr. Dago Emery MD Primary Care Provider Active Start: November 01, 2024 Dr. Dago Emery MD Referring Provider Active Start: November 01, 2024 Dr. Pio Webb DO Attending Provider Active Start: November 01, 2024 Dr. Pio Webb DO Other Provider Active St art: November 01, 2024 INFORMATION SOURCE (unrecogn ized section and content) DATE CREATED AUTHOR 11/28/2024 [facility] FOR RECORDS PERTAINING TO PATIENTS WHO [...] BE BASED ON THE PRIMARY CLINICAL RECORDS. [facility] [employer] [facility] provides no warranty or guarantee of the accuracy or completeness of information in this document.
[2024-11-29 08:18] LABS: Hematocrit 30.7 % (37-47); Hemoglobin 10.3 g/dL (12.0-15.0); Immature Granulocytes Count 0.020 X10^3/uL (0.0-0.0); Mean Corp Hgb Conc 33.6 g/dL (32-36); Mean Corpuscular Volume 114.6 fL (81-99); Mean Platelet Vol. 10.1 fl (6.2-12.0); NRBC Flagged by Analyzer 0 % (0-5); POSITIVE MORPHOLOGY YES; Platelet Count 249 K/mm3 (150-450); RBC Distribution Width CV 16.8 % (11.6-14.6); RBC Distribution Width SD 71.7 fl (35.1-43.9); Red Blood Count 2.68 M/mm3 (4.2-5.4); White Blood Count 3.8 K/mm3 (4.4-11.0)
[2024-11-29 08:23] LABS: Differential Indicated SCAN CRITERIA MET
[2024-11-29 08:47] LABS: Anisocytosis 1+
[2024-11-29 09:09] LABS: AST(SGOT) 22 U/L (<=31); Alanine Aminotransfer ALT/SGPT 7 U/L (<=34); Albumin, Serum 3.7 g/dL (3.4-4.8); Alkaline Phosphatase 75 U/L (35-104); Anion Gap 13 (5-15); BUN 9 mg/dL (4-19); BUN/Creat Ratio 10.7 RATIO (10-20); Calcium,Total 9.3 mg/dL (7.6-11.0); Carbon Dioxide 22.7 mmol/L (21.0-32.0); Chloride 101 mmol/L (98-108); Globulin 2.9 g/dL (2.2-4.2); Glucose 79 mg/dL (70-99); Potassium 3.3 mmol/L (3.3-5.1); Vitamin D,25 Hydroxy 25.9 ng/mL (30-100)
[2024-11-29 09:31] LABS: FOLATES,SERUM (FOLIC ACID) 28.00 ng/mL (4.60-34.80)
== END ==
LOC: OLS.WHLTCC 05:00
PROVIDERS: PCP Family Medicine Geriatric Medicine; Visit Provider Internal Medicine
DX: D52.9 Folate deficiency anemia, unspecified (principal)
CPT/HCPCS: 36415; 80053; 82306; 82746; 84443; 85025

== ENCOUNTER → 2025-01-10 | Outpatient (REF) | payer MEDICARE, OTHER, SELFPAY ==
--- OUTSIDE RECORDS SUMMARY | 2025-01-10 03:53 | XMS RPT_ITS | CCD ---
Author Organization [facility] Care Team Providers Care Drain Cleaner Name Role Phone Dr. Dago Emery Chi Primary Care Provider Rupert, Dr. Dago Nicole Referring Provider Herlinda, Dr. Heck Attending Provider Rupert, Dr. Dago Nicole Primary Care Provider Rupert, Dr. Dago Nicole Referring Provider Peg RECORDS MANAGEMENT CLERK, RECORDS MANAGEMENT CLERK-C Carolyn Attending Provider Rupert, Dr. Dago Nicole Primary Care Provider Rupert, Dr. Dago Nicole Referring Provider Herlinda, Dr. Heck Attending Provider Rupert COON, Dr. Dago Nicole Primary Care Provider Rupert COON, Dr. Dago Nicole Referring Provider Peg RECORDS MANAGEMENT CLERK-C, Carolyn Attending Provider Herlinda COON, Dr. Heck Attending Provider Rupert COON, Dr. Dago Nicole Attending Provider Dr. Omero Armas MD Attending Provider Herlinda COON, Dr. Heck Attending Provider Sven COON, Dr. Guardado Admit Provider Sven COON, Dr. Guardado Referring Provider Sven COON, Dr. Guardado Other Provider Dr. Saulo Bullock DO Attending Provider Dr. Saulo Bullock DO Other Provider Ambrosio COON, Dr. See Pulido Other Provider Ambrosio COON, Dr. See Pulido Attending Provider Sven COON, Dr. Guardado Attending Provider 1([facility])[phone] Wei COON, Dr. Black Other Provider 1([facility])[phone] Allen COON, Dr. Juliane Murguia Other Provider 1([facility])[phone] Wei COON, Dr. Black Attending Provider 1([facility])[phone] Rupret COON, Dr. Dago Nicole Admit Provider 1([facility])[phone] Rupert COON, Dr. Dago Nicole Other Provider 1([facility])[phone] Jon UGALDE, Dr. Suero Attending Provider Friend , Dr. Suero Other Provider 1([facility])[phone] Rupert COON, Dr. Dago Nicole Primary Care Provider 1([facility] )[phone] Rupert COON, Dr. Dago Nicole Referring Provider 1([facility])[phone] Peg RECORDS MANAGEMENT CLERK-C, Carolyn Attending Provider 1([facility])[phone] Oleghe OLS Efewongbe Attending Unavailabl e Rupert, Dago Chi Primary Care Unavailable Oleghe OLS Efewongbe Attending Unavailabl e Rupert, Dago Chi Primary Care Unavailable Oleghe OLS, Efewongbe Attending Unavailabl e Rupert, Dago Chi Primary Care Unavailable Oleghe OLS, Efewongbe Attending Unavailabl e Rupert, Dago Chi Primary Care Unavailable Rupert, Dago Chi Referring Unavailable Umang Pate Attending Unavailable Rupert, Dago Chi Primary Care Unavailable Oleghe OLS, Efewongbe Attending Unavailabl e Rupert, Dago Chi Primary Care Unavailable Oleghe OLS, Efewongbe Attending Unavailabl e Rupert, Dago Chi Primary Care Unavailable Pio Webb Attending Unavailable Rupert, Dago Chi Referring Unavailable Rupert, Dago Chi Primary Care Unavailable Geo Rodriguez Attending Unavailable Geo Rodriguez Referring Unavailable Geo Rodriguez Admitting Unavailable Rupert, Dago Chi Primary Care Unavailable Sofia Carvajal Consulting Unavailable Juliane Villa Consulting Unavailable Tickton RECORDS MANAGEMENT CLERKFouzia Attending Unavailable Rupert, Dago Chi Primary Care Unavailable Roxieton RECORDS MANAGEMENT CLERKFouzia Attending Unavailable Rupert, Dago Chi Primary Care Unavailable Amberly RECORDS MANAGEMENT CLERK, Fouzia Attending Unavailable Rupert, Dago Chi Primary Care Unavailable Rupert, Dago Chi Primary Care Unavailable Irvin Mckenna Attending Unavailable Saulo Bullock Consulting Unavailable Rupert, Dago Chi Primary Care Unavailable Sven, Geo Referring Unavailable Sven, Geo Admitting Unavailable See Valente Attending Unavailable See Valente Consulting Unavailable Sven Geo Consulting Unavailable Sudheer Rodriguezen Attending Unavailable Sven, Geo Referring Unavailable Rupert, Dago Chi Primary Care Unavailable Rupert, Dago Chi Attending Unavailable Rupert, Dago Chi Primary Care Unavailable Rupert, Dago Chi Referring Unavailable Rupert, Dago Chi Attending Unavailable Rupert, Dago Chi Primary Care Unavailable Rupert, Dago Chi Referring Unavailable Rupert, Dago Chi Attending Unavailable Rupert, Dago Chi Primary Care Unavailable Rupert, Dago Chi Referring Unavailable Umang Pate Attending Unavailable Rupert, Dago Chi Primary Care Unavailable Rupert, Dago Chi Referring Unavailable Rupert, Dago Chi Primary Care Unavailable Omero Armsa Attending Unavailable Saulo Bullock Attending Unavailable Rupert, Dago Chi Referring Unavailable Rupert, Dago Chi Primary Care Unavailable Peg RECORDS MANAGEMENT CLERKCarolyn Attending Unavailable Rupert, Dago Chi Attending Unavailable Rupert, Dago Chi Admitting Unavailable Rupert, Dago Chi Primary Care Unavailable Rupert, Dago Chi Primary Care Unavailable Sven, Geo Referring Unavailable Sven, Geo Admitting Unavailable Sofia Carvajal Attending Unavailable Saulo Bullock Consulting Unavailable Sofia Carvajal Consulting Unavailable Geo Rodriguez Consulting Unavailable Friend, Pio Consulting Unavailable Friend, Pio Attending Unavailable Rupert, Dago Chi Primary Care Unavailable Rupert, Dago Chi Referring Unavailable Rupert, Dago Chi Referring Unavailable Rupert, Dago Chi Primary Care Unavailable Peg RECORDS MANAGEMENT CLERKCarolyn Attending Unavailable Rupert, Dago Chi Referring Unavailable Rupert, Dago Chi Primary Care Unavailable Omero Armas Attending Unavailable Friend, Pio Attending Unavailable Rupert, Dago Chi Consulting Unavailable Rupert, Dago Chi Referring Unavailable Rupert, Dago Chi Admitting Unavailable Rupert, Dago Chi Primary Care Unavailable Irvin Joe Attending Unavailabl e Rupert, Dago Chi Primary Care Unavailable Allergies Allergy Classification Reported Allergen(s) Allergy Type Date of Onset Reaction(s) Facility (13 sources) Contrast media; Translations: [red dye] Propensity to adverse reactions 2 Unknown [facility] Comment on above: mouth to droop (12 sources) Penicillins Propensity to adverse reactions 2 Swelling [facility] (13 sources) Promethazine; Translations: [promethazine HCl] Drug Allergy 2 Other [facility] Comment on above: david devi (zi ng) (12 sources) Tetanus Vaccines and Toxoid Propensity to adverse reactions 2 NEEDS FOLLOW-UP [facility] (1 source) Penicillins Drug allergy (disorder) 5 [facility] (1 source) Tetanus Vaccines and Toxoid Drug allergy (disorder) 5 [facility] Medications Current Medications Medication Drug Class(es) [...] 25 mg oral tablet (20 sources) beta-Adrenergic Elizbaeth Start: 11-24-2024 take 1 tablet by mouth [...] 1:55pm docusate sodium 50 mg / sennosides, assisted 8.6 mg oral tablet (17 sources) Start: 11-24-2024 Sennosides-Doc usate Sodium (Stimulant Laxative Plus) 8.6-50 mg Tablet Active 2 {tbl} PO TWICE A DAY 0 0 November 24, 2024 12:00am Start: 09-25-2022 End: 07-31-2024 Sennosides-Docusate Sodium ( Stool Softener-Stimulant Laxat) 8.6-50 mg Tablet Discontinued 2 {tbl} PO BID@0800,1999 120 30 0 October 09, 2022 12:00am [...] 2019 9:38am 1000 MG PO DAILY ON WED, WED, , WED & SAT. NO MEDICATION ON WED & SUN. Start: 07-18-2018 End: 08-28-2019 take 1000 mg by mouth once daily Hydroxyurea Discontinued 500 MG PO MOTUTHFRSA December 02, 2018 12:48pm August 28, 2019 8:38am 1000 MG PO DAILY ON MON, TUE, THUR, WED & SAT. NO MEDICATION ON WED & WED. levothyroxine sodium 0.05 mg oral tablet (12 [...] October 08, 2022 11:00pm polyethylene glycol 3350 27051 mg powder for oral solution (3 sources) [...] unspecified] 10-21-2024 Episodic Deficiency and other anemia (1 source) Folate deficiency anemia, unspecified; Translations: [Folate deficiency anemia, unspecified] Onset: 5 Episodic Deficiency and other anemia (2 sources) [...] hypertension] Onset: 4 09-01-2018 Chronic Fracture of lower limb (1 source) Unspecified fracture of lower end of left tibia, subsequent encounter for closed fracture with routine healing; Translations: [Unspecified fracture of lower end of left tibia, subsequent encounter for closed fracture with routine healing] Onset: 5 Episodic Fracture of neck of femur (hip) (12 sources) Fracture of bone of hip region; Translations: [Fracture of unspecified part of neck of left femur, initial encounter for closed fracture] 09-01-2018 Episodic Malaise and fatigue (12 sources) Asthenia; Translations: [Other malaise] Onset: 5 08-03-2023 Episodic Neoplasms of unspecified nature or uncertain [...] left knee] Onset: 5 Chronic Other aftercare (2 sources) Aftercare following joint replacement surgery; Translations: [Aftercare [...] artificial knee joint] Onset: 5 Chronic Other connective tissue disease (1 source) Muscle wasting and atrophy, not elsewhere classified, right lower leg; Translations: [Muscle wasting and atrophy, not elsewhere classified, right lower leg] Onset: 5 Episodic Other hematologic conditions (19 sources) Erythrocytosis; Translations: [...] (16 sources) Hypothyroidism; Translations: [Hypothyroidism, unspecified] Onset: 09-01-2018 Chronic Unclassified (1 source) new patient/hospital follow up Results Test Name Value Interpretation Reference Range Facility Basic Metabolic Profile (BMP )on 12-01-2024 BUN Normal 4-19 [facility] Comment on above: Result Comment: Canc elled via OM: Order cancelled - Patient discharged Performed By: #### L 100.0100, L500.2500 ####[facility] [address] [place], [address] BUN/CRE Normal 10-20 [facility] Comment on above: Result Comment: Canc elled via OM: Order cancelled - Patient discharged Performed By: #### L 100.0100, L500.2500 ####[facility] [address] [place], [address] Calcium Normal 7.6-11.0 [facility] Comment on above: Result Comment: Canc elled via OM: Order cancelled - Patient discharged Performed By: #### L 100.0100, L500.2500 ####[facility] [address] [place], [address] CL Normal 98-108 [facility] Comment on above: Result Comment: Canc elled via OM: Order cancelled - Patient discharged Performed By: #### L 100.0100, L500.2500 ####[facility] [address] [place], [address] CO2 Normal 21.0-32.0 [facility] Comment on above: Result Comment: Canc elled via OM: Order cancelled - Patient discharged Performed By: #### L 100.0100, L500.2500 ####[facility] [address] [place], [address] CREAT,SERUM Normal 0.70-1.20 [facility] Comment on above: Result Comment: Canc elled via OM: Order cancelled - Patient discharged Performed By: #### L 100.0100, L500.2500 ####[facility] [address] [place], [address] eGFR Normal >60 [facility] Comment on above: Result Comment: Canc elled via OM: Order cancelled - Patient discharged Performed By: #### L 100.0100, L500.2500 ####[facility] [address] [place], [address] GAP Normal 5-15 [facility] Comment on above: Result Comment: Canc elled via OM: Order cancelled - Patient discharged Performed By: #### L 100.0100, L500.2500 ####[facility] [address] [place], [address] GLU Normal 70-99 [facility] Comment on above: Result Comment: Canc elled via OM: Order cancelled - Patient discharged Performed By: #### L 100.0100, L500.2500 ####[facility] [address] [place], [address] Potassium Normal 3.3-5.1 [facility] Comment on above: Result Comment: Canc elled via OM: Order cancelled - Patient discharged Performed By: #### L 100.0100, L500.2500 ####[facility] [address] [place], [address] Basic Metabolic Profile (BMP) Normal 133-145 [facility] Comment on above: Result Comment: Canc elled via OM: Order cancelled - Patient discharged Performed By: #### L 100.0100, L500.2500 ####[facility] [address] [place], [address] CBC W/Diff, Automatedon 09-1 Absolute Neut Normal 2.0-7.7 [facility] Comment on above: Result Comment: Canc elled via OM: Order cancelled - Patient discharged Performed By: #### L 100.0100, L500.2500 ####[facility] [address] [place], [address] HCT Normal 37-47 [facility] Comment on above: Result Comment: Canc elled via OM: Order cancelled - Patient discharged Performed By: #### L 100.0100, L500.2500 ####[facility] [address] [place], [address] HGB Normal 12.0-15.0 [facility] Comment on above: Result Comment: Canc elled via OM: Order cancelled - Patient discharged Performed By: #### L 100.0100, L500.2500 ####[facility] [address] [place], [address] MCH Normal 27.0-32.0 [facility] Comment on above: Result Comment: Canc elled via OM: Order cancelled - Patient discharged Performed By: #### L 100.0100, L500.2500 ####[facility] [address] [place], [address] MCHC Normal 32-36 [facility] Comment on above: Result Comment: Canc elled via OM: Order cancelled - Patient discharged Performed By: #### L 100.0100, L500.2500 ####[facility] [address] [place], [address] MCV Normal 81-99 [facility] Comment on above: Result Comment: Canc elled via OM: Order cancelled - Patient discharged Performed By: #### L 100.0100, L500.2500 ####[facility] [address] [place], [address] NEUT% Normal 47-70 [facility] Comment on above: Result Comment: Canc elled via OM: Order cancelled - Patient discharged Performed By: #### L 100.0100, L500.2500 ####[facility] [address] [place], [address] PLT Normal 150-450 [facility] Comment on above: Result Comment: Canc elled via OM: Order cancelled - Patient discharged Performed By: #### L 100.0100, L500.2500 ####[facility] [address] [place], [address] RBC Normal 4.2-5.4 [facility] Comment on above: Result Comment: Canc elled via OM: Order cancelled - Patient discharged Performed By: #### L 100.0100, L500.2500 ####[facility] [address] [place], [address] RDW CV Normal 11.6-14.6 [facility] Comment on above: Result Comment: Canc elled via OM: Order cancelled - Patient discharged Performed By: #### L 100.0100, L500.2500 ####[facility] [address] [place], [address] RDW SD Normal 35.1-43.9 [facility] Comment on above: Result Comment: Canc elled via OM: Order cancelled - Patient discharged Performed By: #### L 100.0100, L500.2500 ####[facility] [address] [place], [address] WBC Normal 4.4-11.0 [facility] Comment on above: Result Comment: Canc elled via OM: Order cancelled - Patient discharged Performed By: #### L 100.0100, L500.2500 ####[facility] [address] [place], [address] Absolute lymphocyte countOrd ered By: Dago Emery on 11-24-2024 Lymphocytes Auto (Unsp spec) [#/Vol] 1.12 10*3/uL 0.83-4.51 [facility] Absolute neutrophil countOrd ered By: Dago Emery on 09-05-2025 Neutrophils (Bld) [#/Vol] 2.7 10*3/uL 2.0-7.7 [facility] Anion gap in Serum or Plasma Ordered By: Dago Emery on 11-24-2024 Anion gap [Moles/Vol] 12 mmol/L 5- [facility] Automated lymphocyte count a s percentage of total leukocytesOrdered By: Dago Emery on 11-24-2024 Lymphocytes/100 WBC Auto (Unsp spec) 27.0 % [facility] BUN/creatinine ratioOrdered By: Dago Emery on 11-24-2024 Urea nitrogen/Creatinine [Mass ratio] 11.3 mg/mg - [facility] Basic Metabolic Profile (BMP )on 11-24-2024 BUN/CRE 11.3 RATIO Normal 01-08 [facility] Comment on above: Performed By: #### L 100.0100, L500.2500 ####[facility] [address] [place], [address] Calcium [Mass/Vol] 9.0 mg/dL Normal 7.6-11.0 [facility] Comment on above: Performed By: #### L 100.0100, L500.2500 ####[facility] [address] [place], [address] Chloride [Moles/Vol] 100 mmol/L Normal 98-108 [facility] Comment on above: Performed By: #### L 100.0100, L500.2500 ####[facility] [address] [place], [address] CO2 [Moles/Vol] 24.0 mmol/L Normal 21.0-32.0 [facility] Comment on above: Performed By: #### L 100.0100, L500.2500 ####[facility] [address] [place], [address] Creatinine [Mass/Vol] 1.02 mg/dL Normal 0.70-1.20 [facility] Comment on above: Performed By: #### L 100.0100, L500.2500 ####[facility] [address] [place], [address] ECRCL 46.75 ml/min Low 50-250 [facility] Comment on above: Performed By: #### L 100.0100, L500.2500 ####[facility] [address] [place], [address] GAP 12 Normal 5-15 [facility] Comment on above: Performed By: #### L 100.0100, L500.2500 ####[facility] [address] [place], [address] GFR/1.73 sq M.predicted among non-blacks MDRD (S/P/Bld) [Vol rate/Area] 55 mL/min/{1.73_m2} Low >60 [facility] Comment on above: Result Comment: mL/m in/1.73m2 CKD-EPI Creatinine Equation (2020) Performed By: #### L 100.0100, L500.2500 ####[facility] [address] [place], [address] Glucose [Mass/Vol] 119 mg/dL High 70-99 [facility] Comment on above: Performed By: #### L 100.0100, L500.2500 ####[facility] [address] [place], [address] Potassium [Moles/Vol] 3.7 mmol/L Normal 3.3-5.1 [facility] Comment on above: Performed By: #### L 100.0100, L500.2500 ####[facility] [address] [place], [address] Sodium [Moles/Vol] 135 mmol/L Normal 133-145 [facility] Comment on above: Performed By: #### L 100.0100, L500.2500 ####[facility] [address] [place], [address] Urea nitrogen [Mass/Vol] 12 mg/dL Normal 4-19 [facility] Comment on above: Performed By: #### L 100.0100, L500.2500 ####[facility] [address] [place], [place], [address] Basophil percentageOrdered B y: Dago Rupert on 11-24-2024 Basophils/100 WBC (Bld) 0.5 % 0-1 [facility] Blood manual differential co mment interpretation (narrative result)Ordered By: Dago Emery on 11-24-2024 Manual differential comment Jack (Bld) [Interp] SCANNED [facility] CBC W/Diff, Automatedon Anisocytosis Ql (Bld) 2+ Normal [facility] Comment on above: Performed By: #### L 100.0100, L500.2500 ####[facility] [address] [place], [place], [address] SMEAR COMMENT SCANNED Normal [facility] Comment on above: Performed By: #### L 100.0100, L500.2500 ####[facility] [address] [place], [place], [address] Carbon dioxide, total [Moles /volume] in Central venous bloodOrdered By: Dago Emery on 11-24-2024 CO2 [Moles/Vol] 24.0 mmol/L 21.0-32.0 [facility] Chloride assayOrdered By: Jorge Emery on 11-24-2024 Chloride [Moles/Vol] 100 mmol/L 98-108 [facility] Eosinophil percentageOrdered By: Dago Emery on 11-24-2024 Eosinophils/100 WBC (Bld) 2.2 % 0-5 [facility] Erythrocyte distribution wid th ratioOrdered By: Dago Emery on 11-24-2024 Erythrocyte distribution width (RBC) [Ratio] 16.9 % High 11.6-14.6 [facility] Erythrocyte distribution wid th standard deviationOrdered By: Dago Emery on 11-24-2024 Erythrocyte distribution width (RBC) [Ratio] 70.3 fl High 35.1-43.9 [facility] Glomerular filtration rate ( GFR) estimation/1.73 sq m using serum, plasma, or whole bOrdered By: Dago Emery on 11-24-2024 GFR/1.73 sq M.predicted among non-blacks MDRD (S/P/Bld) [Vol rate/Area] 55 mL/min/{1.73_m2} Low >60 [facility] Comment on above: mL/min/1.73m2 CKD-EP I Creatinine Equation (2020) Hematocrit Auto (Bld) [Volum e fraction]Ordered By: Dago Emery on 11-24-2024 Hematocrit (Bld) [Volume fraction] 30.7 % Low 37-47 [facility] Hemoglobin measurementOrdere d By: Dago Emery 11-24-2024 Hemoglobin (Bld) [Mass/Vol] 10.3 g/dL Low 12.0-15.0 [facility] Immature granulocytes/100 WB C Auto (Bld)Ordered By: Dago Emery 11-24-2024 Immature granulocytes/100 WBC (Bld) 0.500 % 0.0-0.9 [facility] Comment on above: IG% - Immature Granu locytes (promyelocytes, myelocytes and metamyelocytes) > 1% indicates that a LEFT SHIFT is Present. Laboratory - Hematology and Cell countsOrdered By: Dago Emery 11-24-2024 Anisocytosis Ql (Bld) 2+ [facility] MCV (mean corpuscular volume ) determinationOrdered By: Dago Emery 11-24-2024 MCV (RBC) [Entitic vol] 115.0 fL High 81-99 [facility] Mean corpuscular hemoglobin (MCH) determinationOrdered By: Dago Emery 11-24-2024 MCH (RBC) [Entitic mass] 38.6 pg High 27.0-32.0 [facility] Mean corpuscular hemoglobin concentration (MCHC) determinationOrdered By: Dago Emery 11-24-2024 MCHC (RBC) [Mass/Vol] 33.6 g/dL 32-36 [facility] Mean platelet volume determi nationOrdered By: Dago Emery 11-24-2024 Platelet mean volume (Bld) [Entitic vol] 10.0 fL 6.2-12.0 [facility] Monocyte percentageOrdered B y: Dago Emery on 11-24-2024 Monocytes/100 WBC (Bld) 5.3 % 0-10 [facility] Neutrophil percentageOrdered By: Dago Emery on 11-24-2024 Neutrophils/100 WBC (Bld) 64.5 % 47-70 [facility] Nucleated red blood cell per centageOrdered By: Dago Emery on 11-24-2024 Nucleated RBC/100 WBC (Bld) [Ratio] 0 % 0-5 [facility] Platelet countOrdered By: Jorge Emery on 11-24-2024 Platelets (Bld) [#/Vol] 239 10*3/uL 150-450 [facility] Potassium measurement (mass/ volume)Ordered By: Dago Emery on 11-24-2024 Potassium (Unsp spec) [Mass/Vol] 3.7 mmol/L 3.3-5.1 [facility] RBC Auto (Bld) [#/Vol]Ordere d By: Dago Emery on 11-24-2024 RBC (Bld) [#/Vol] 2.67 10*6/uL Low 4.2-5.4 [facility] Serum creatinine measurement (mass/volume)Ordered By: Dago Emery on 11-24-2024 Creatinine [Mass/Vol] 1.02 mg/dL 0.70-1.20 [facility] Serum glucose measurement (m ass/volume)Ordered By: Dago Emery on 11-24-2024 Glucose [Mass/Vol] 119 mg/dL High 70-99 [facility] Serum or plasma calcium niels urement (mass/volume)Ordered By: Dago Emery on 11-24-2024 Calcium [Mass/Vol] 9.0 mg/dL 7.6-11.0 [facility] Serum or plasma urea nitroge n measurement (mass/volume)Ordered By: Dago Emery 11-24-2024 Urea nitrogen [Mass/Vol] 12 mg/dL 4-19 [facility] Sodium levelOrdered By: Dago Emery 11-24-2024 Sodium [Moles/Vol] 135 mmol/L 133-145 [facility] White blood cell (WBC) count Ordered By: Dago Emery 11-24-2024 WBC (Bld) [#/Vol] 4.2 10*3/uL Low 4.4-11.0 [facility] Basic Metabolic Profile (BMP )on 11-17-2024 BUN/CRE 14.3 RATIO Normal 10-20 [facility] Comment on above: Performed By: #### L 100.0100, L500.2500 ####[facility] [address] [place], [address] Calcium [Mass/Vol] 8.9 mg/dL Normal 7.6-11.0 [facility] Comment on above: Performed By: #### L 100.0100, L500.2500 ####[facility] [address] [place], [address] Chloride [Moles/Vol] 101 mmol/L Normal 98-108 [facility] Comment on above: Performed By: #### L 100.0100, L500.2500 ####[facility] [address] [place], [address] CO2 [Moles/Vol] 23.8 mmol/L Normal 21.0-32.0 [facility] Comment on above: Performed By: #### L 100.0100, L500.2500 ####[facility] [address] [place], [address] Creatinine [Mass/Vol] 1.02 mg/dL Normal 0.70-1.20 [facility] Comment on above: Performed By: #### L 100.0100, L500.2500 ####[facility] [address] [place], [address] ECRCL 47.80 ml/min Low 50-250 [facility] Comment on above: Performed By: #### L 100.0100, L500.2500 ####[facility] [address] [place], [address] GAP 11 Normal 5-15 [facility] Comment on above: Performed By: #### L 100.0100, L500.2500 ####[facility] [address] [place], [address] GFR/1.73 sq M.predicted among non-blacks MDRD (S/P/Bld) [Vol rate/Area] 55 mL/min/{1.73_m2} Low >60 [facility] Comment on above: Result Comment: mL/m in/1.73m2 CKD-EPI Creatinine Equation (2020) Performed By: #### L 100.0100, L500.2500 ####[facility] [address] [place], [address] Glucose [Mass/Vol] 82 mg/dL Normal 70-99 [facility] Comment on above: Performed By: #### L 100.0100, L500.2500 ####[facility] [address] [place], [address] Potassium [Moles/Vol] 3.8 mmol/L Normal 3.3-5.1 [facility] Comment on above: Performed By: #### L 100.0100, L500.2500 ####[facility] [address] [place], [address] Sodium [Moles/Vol] 136 mmol/L Normal 133-145 [facility] Comment on above: Performed By: #### L 100.0100, L500.2500 ####[facility] [address] [place], [address] Urea nitrogen [Mass/Vol] 15 mg/dL Normal 4-19 [facility] Comment on above: Performed By: #### L 100.0100, L500.2500 ####[facility] [address] [place], [address] CBC W/Diff, Automatedon 08-2 Anisocytosis Ql (Bld) 1+ Normal [facility] Comment on above: Performed By: #### L 100.0100, L500.2500 ####[facility] [address] [place], [address] HH, Hemoglobin AND Hematocri ton 11-15-2024 Hematocrit (Bld) [Volume fraction] 26.1 % Low [address] Comment on above: Performed By: #### L 100.0600 ####[facility] [address] [place], [address] Hemoglobin (Bld) [Mass/Vol] 8.8 g/dL Low 12.0-15.0 [facility] Comment on above: Performed By: #### L 100.0600 ####[facility] [address] [place], [address] COVID 19 AG RAPID (RN COLLEC T)on 11-13-2024 SARS-CoV-2 (COVID-19) RNA JANY+probe Ql (Unsp spec) Normal [facility] Comment on above: Performed By: #### M 100.505 ####[facility] [address] [place], [address] COVID-19 virus antigen assay Ordered By: Dago Emery on 11-13-2024 SARS-CoV-2 (COVID-19) Ag IA.rapid Ql (Resp) [facility] HH, Hemoglobin AND Hematocri ton 11-13-2024 Hematocrit (Bld) [Volume fraction] 25.3 % Low [address] [place] [address] Comment on above: Performed By: #### L 100.0600 ####[facility] [address] [place], [address] Hemoglobin (Bld) [Mass/Vol] 8.6 g/dL Low 12.0-15.0 [facility] Comment on above: Performed By: #### L 100.0600 ####[facility] [address] [place], [address] COVID 19 AG RAPID (RN COLLEC T)on 11-11-2024 SARS-CoV-2 (COVID-19) RNA JANY+probe Ql (Unsp spec) Normal [facility] Comment on above: Performed By: #### M 100.505 ####[facility] [address] [place], [address] COVID-19 virus antigen assay Ordered By: Dago Emery on 11-11-2024 SARS-CoV-2 (COVID-19) Ag IA.rapid Ql (Resp) [facility] Basic Metabolic Profile (BMP )on 11-10-2024 BUN/CRE 13.9 RATIO Normal 10-20 [facility] Comment on above: Performed By: #### L 500.2500, L100.0100 ####[facility] [address] [place], [address] Calcium [Mass/Vol] 8.5 mg/dL Normal 7.6-11.0 [facility] Comment on above: Performed By: #### L 500.2500, L100.0100 ####[facility] [address] [place], [address] Chloride [Moles/Vol] 102 mmol/L Normal 98-108 [facility] Comment on above: Performed By: #### L 500.2500, L100.0100 ####[facility] [address] [place], [address] CO2 [Moles/Vol] 25.0 mmol/L Normal 21.0-32.0 [facility] Comment on above: Performed By: #### L 500.2500, L100.0100 ####[facility] [address] [place], [address] Creatinine [Mass/Vol] 0.90 mg/dL Normal 0.70-1.20 [facility] Comment on above: Performed By: #### L 500.2500, L100.0100 ####[facility] [address] [place], [address] ECRCL 54.17 ml/min Normal 50-250 [facility] Comment on above: Performed By: #### L 500.2500, L100.0100 ####[facility] [address] [place], [address] GAP 11 Normal 5-15 [facility] Comment on above: Performed By: #### L 500.2500, L100.0100 ####[facility] [address] [place], [address] GFR/1.73 sq M.predicted among non-blacks MDRD (S/P/Bld) [Vol rate/Area] 64 mL/min/{1.73_m2} Normal >60 [facility] Comment on above: Result Comment: mL/m in/1.73m2 CKD-EPI Creatinine Equation (2020) Performed By: #### L 500.2500, L100.0100 ####[facility] [address] [place], [address] Glucose [Mass/Vol] 82 mg/dL Normal 70-99 [facility] Comment on above: Performed By: #### L 500.2500, L100.0100 ####[facility] [address] [place], [address] Potassium [Moles/Vol] 3.7 mmol/L Normal 3.3-5.1 [facility] Comment on above: Performed By: #### L 500.2500, L100.0100 ####[facility] [address] [place], [address] Sodium [Moles/Vol] 138 mmol/L Normal 133-145 [facility] Comment on above: Performed By: #### L 500.2500, L100.0100 ####[facility] [address] [place], [address] Urea nitrogen [Mass/Vol] 13 mg/dL Normal 4-19 [facility] Comment on above: Performed By: #### L 500.2500, L100.0100 ####[facility] [address] [place], [address] Blood polychromasia detectio n by light microscopyOrdered By: Dago Emery on 11-10-2024 Polychromasia LM Ql (Bld) 1+ [facility] CBC W/Diff, Automatedon 10-21 POLYCHROMASIA 1+ Normal [facility] Comment on above: Performed By: #### L 500.2500, L100.0100 ####[facility] [address] [place], [address] Anisocytosis Ql (Bld) 2+ Normal [facility] Comment on above: Performed By: #### L 500.2500, L100.0100 ####[facility] [address] [place], [address] PLT EST ADEQUATE Normal ADEQ [facility] Comment on above: Performed By: #### L 500.2500, L100.0100 ####[facility] [address] [place], [address] Platelet estimateOrdered By: Dago Emery on 11-10-2024 Platelets LM Ql (Bld) ADEQUATE ADEQ [facility] COVID 19 AG RAPID (DOUGLAS Devine)on 11-09-2024 SARS-CoV-2 (COVID-19) RNA JANY+probe Ql (Unsp spec) Normal [facility] Comment on above: Performed By: #### M 100.505 ####[facility] [address] [place], [address] COVID-19 virus antigen assay Ordered By: Dago Emery on 11-09-2024 SARS-CoV-2 (COVID-19) Ag IA.rapid Ql (Resp) [facility] Ankle min 3 Viewson 11-04-19 25 Ankle min 3 Views Normal [facility] Basic Metabolic Profile (BMP )on 11-03-2024 BUN/CRE 15.7 RATIO Normal - [facility] Comment on above: Performed By: #### L 500.2500, L100.0100 ####[facility] [address] [place], [address] Calcium [Mass/Vol] 8.8 mg/dL Normal 7.6-11.0 [facility] Comment on above: Performed By: #### L 500.2500, L100.0100 ####[facility] [address] [place], [address] Chloride [Moles/Vol] 101 mmol/L Normal 98-108 [facility] Comment on above: Performed By: #### L 500.2500, L100.0100 ####[facility] [address] [place], [address] CO2 [Moles/Vol] 22.1 mmol/L Normal 21.0-32.0 [facility] Comment on above: Performed By: #### L 500.2500, L100.0100 ####[facility] [address] [place], [address] Creatinine [Mass/Vol] 1.16 mg/dL Normal 0.70-1.20 [facility] Comment on above: Performed By: #### L 500.2500, L100.0100 ####[facility] [address] [place], [address] ECRCL 42.03 ml/min Low 50-250 [facility] Comment on above: Performed By: #### L 500.2500, L100.0100 ####[facility] [address] [place], [address] GAP 11 Normal 5-15 [facility] Comment on above: Performed By: #### L 500.2500, L100.0100 ####[facility] [address] [place], [address] GFR/1.73 sq M.predicted among non-blacks MDRD (S/P/Bld) [Vol rate/Area] 47 mL/min/{1.73_m2} Low >60 [facility] Comment on above: Result Comment: mL/m in/1.73m2 CKD-EPI Creatinine Equation (2020) Performed By: #### L 500.2500, L100.0100 ####[facility] [address] [place], [address] Glucose [Mass/Vol] 88 mg/dL Normal 70-99 [facility] Comment on above: Performed By: #### L 500.2500, L100.0100 ####[facility] [address] [place], [address] Potassium [Moles/Vol] 4.0 mmol/L Normal 3.3-5.1 [facility] Comment on above: Performed By: #### L 500.2500, L100.0100 ####[facility] [address] [place], [address] Sodium [Moles/Vol] 134 mmol/L Normal 133-145 [facility] Comment on above: Performed By: #### L 500.2500, L100.0100 ####[facility] [address] [place], [address] Urea nitrogen [Mass/Vol] 18 mg/dL Normal 4-19 [facility] Comment on above: Performed By: #### L 500.2500, L100.0100 ####[facility] [address] [place], [address] CBC W/Diff, Automatedon 10-20 Anisocytosis Ql (Bld) 2+ Normal [facility] Comment on above: Performed By: #### L 500.2500, L100.0100 ####[facility] [address] [place], [address] MACROCYTOSIS 2+ Normal [facility] Comment on above: Performed By: #### L 500.2500, L100.0100 ####[facility] [address] [place], [address] POLYCHROMASIA RARE Normal [facility] Comment on above: Performed By: #### L 500.2500, L100.0100 ####[facility] [address] [place], [address] RED CELL MORPH N CHROM Normal NORM C C [facility] Comment on above: Performed By: #### L 500.2500, L100.0100 ####[facility] [address] [place], [address] SMEAR COMMENT SCANNED Normal [facility] Comment on above: Performed By: #### L 500.2500, L100.0100 ####[facility] [address] [place], [address] Erythrocyte morphology asses smentOrdered By: Dago Emery on 11-03-2024 RBC morphology finding Nom (Bld) N CHROM NORMAL NORM C&C [facility] Macrocytes detectionOrdered By: Dago Emery on 11-03-2024 Macrocytes Ql (Bld) 2+ [facility] EGD Reporton 11-01-2024 EGD Report Normal [facility] Immunohistochemical Stainson 11-01-2024 Immunohistochemical Stains Normal [facility] Comment on above: Performed By: #### P IMHI ####[facility] [address] [place], [address] MR/OP.PROVATon 11-01-2024 MR/OP.PROVAT Normal [facility] MR/POSTOP.ANEon 11-01-2024 MR/POSTOP.ANE Normal [facility] MR/HVWPNRHA9hm 11-01-2024 MR/POSTOPAN2 Normal [facility] Ankle min 3 Viewson 11-01-19 25 Ankle min 3 Views Normal [facility] HH, Hemoglobin AND Hematocri ton 10-31-2024 Hematocrit (Bld) [Volume fraction] 24.8 % Low 37-47 [facility] Comment on above: Performed By: #### L 100.0600 ####[facility] [address] [place], [address] Hemoglobin (Bld) [Mass/Vol] 8.4 g/dL Low 12.0-15.0 [facility] Comment on above: Performed By: #### L 100.0600 ####[facility] [address] [place], [address] Hematocrit Auto (Bld) [Volum e fraction]Ordered By: Dago Emery on 10-31-2024 Hematocrit (Bld) [Volume fraction] 24.8 % Low 37-47 [facility] Hemoglobin measurementOrdere d By: Dago Emery on 10-31-2024 Hemoglobin (Bld) [Mass/Vol] 8.4 g/dL Low 12.0-15.0 [facility] Knee 1 or 2 Viewson 11-01-19 25 Knee 1 or 2 Views Normal [facility] MR/CON.PCM.GIon 10-31-2024 MR/CON.PCM.GI Normal [facility] Stool Occult Blood iFOBon STOB Positive Normal [facility] Comment on above: Performed By: #### M 100.7900 ####[facility] [address] [place], [address] Stool gastrointestinal hemog lobin detection by immunologic methodOrdered By: Dago Emery on 10-31-2024 Lower GI hemoglobin IA Ql (Stl) Positive Abnormal [facility] HH, Hemoglobin AND Hematocri ton 10-30-2024 Hematocrit (Bld) [Volume fraction] 24.1 % Low 37-47 [facility] Comment on above: Performed By: #### L 100.0600 ####[facility] [address] [place], [address] Hemoglobin (Bld) [Mass/Vol] 7.9 g/dL Low 12.0-15.0 [facility] Comment on above: Performed By: #### L 100.0600 ####[facility] [address] [place], [address] HH, Hemoglobin AND Hematocri ton 10-28-2024 Hematocrit (Bld) [Volume fraction] 25.0 % Low 37-47 [facility] Comment on above: Performed By: #### L 100.0600 ####[facility] [address] [place], [address] Hemoglobin (Bld) [Mass/Vol] 8.3 g/dL Low 12.0-15.0 [facility] Comment on above: Performed By: #### L 100.0600 ####[facility] [address] [place], [address] Absolute lymphocyte countOrd ered By: Dago Emery on 10-27-2024 Lymphocytes Auto (Unsp spec) [#/Vol] 1.30 10*3/uL 0.83-4.51 [facility] Absolute neutrophil countOrd ered By: Dago Emery on 10-27-2024 Neutrophils (Bld) [#/Vol] 2.7 10*3/uL 2.0-7.7 [facility] Anion gap in Serum or Plasma Ordered By: Dago Emery on 10-27-2024 Anion gap [Moles/Vol] 10 mmol/L 5-15 [facility] Automated lymphocyte count a s percentage of total leukocytesOrdered By: Dago Emery on 10-27-2024 Lymphocytes/100 WBC Auto (Unsp spec) 27.7 % 19-41 [facility] BUN/creatinine ratioOrdered By: Dago Emery on 10-27-2024 Urea nitrogen/Creatinine [Mass ratio] 24.5 mg/mg High - [facility] Basic Metabolic Profile (BMP )on 10-27-2024 BUN/CRE 24.5 RATIO High 01-08 [facility] Comment on above: Performed By: #### L 500.2500, L100.0100 ####[facility] [address] [place], [address] Calcium [Mass/Vol] 8.8 mg/dL Normal 7.6-11.0 [facility] Comment on above: Performed By: #### L 500.2500, L100.0100 ####[facility] [address] [place], [address] Chloride [Moles/Vol] 100 mmol/L Normal 98-108 [facility] Comment on above: Performed By: #### L 500.2500, L100.0100 ####[facility] [address] [place], [address] CO2 [Moles/Vol] 22.3 mmol/L Normal 21.0-32.0 [facility] Comment on above: Performed By: #### L 500.2500, L100.0100 ####[facility] [address] [place], [address] Creatinine [Mass/Vol] 1.16 mg/dL Normal 0.70-1.20 [facility] Comment on above: Performed By: #### L 500.2500, L100.0100 ####[facility] [address] [place], [address] ECRCL 42.03 ml/min Low 50-250 [facility] Comment on above: Performed By: #### L 500.2500, L100.0100 ####[facility] [address] [place], [address] GAP 10 Normal 5-15 [facility] Comment on above: Performed By: #### L 500.2500, L100.0100 ####[facility] [address] [place], [address] GFR/1.73 sq M.predicted among non-blacks MDRD (S/P/Bld) [Vol rate/Area] 47 mL/min/{1.73_m2} Low >60 [facility] Comment on above: Result Comment: mL/m in/1.73m2 CKD-EPI Creatinine Equation (2020) Performed By: #### L 500.2500, L100.0100 ####[facility] [address] [place], [address] Glucose [Mass/Vol] 85 mg/dL Normal 70-99 [facility] Comment on above: Performed By: #### L 500.2500, L100.0100 ####[facility] [address] [place], [address] Potassium [Moles/Vol] 4.5 mmol/L Normal 3.3-5.1 [facility] Comment on above: Performed By: #### L 500.2500, L100.0100 ####[facility] [address] [place], [address] Sodium [Moles/Vol] 133 mmol/L Normal 133-145 [facility] Comment on above: Performed By: #### L 500.2500, L100.0100 ####[facility] [address] [place], [address] Urea nitrogen [Mass/Vol] 28 mg/dL High 4-19 [facility] Comment on above: Performed By: #### L 500.2500, L100.0100 ####[facility] [address] [place], [address] Basophil percentageOrdered B y: Dago Emery on 10-27-2024 Basophils/100 WBC (Bld) 0.4 % 0-1 [facility] Blood polychromasia detectio n by light microscopyOrdered By: Dago Emery on 10-27-2024 Polychromasia LM Ql (Bld) RARE [facility] CBC W/Diff, Automatedon Anisocytosis Ql (Bld) 2+ Normal [facility] Comment on above: Performed By: #### L 500.2500, L100.0100 ####[facility] [address] [place], [address] POLYCHROMASIA RARE Normal [facility] Comment on above: Performed By: #### L 500.2500, L100.0100 ####[facility] [address] [place], [address] RED CELL MORPH NORM C+C Normal NORM C C [facility] Comment on above: Performed By: #### L 500.2500, L100.0100 ####[facility] [address] [place], [address] Carbon dioxide, total [Moles /volume] in Central venous bloodOrdered By: Dago Emery on 10-27-2024 CO2 [Moles/Vol] 22.3 mmol/L 21.0-32.0 [facility] Chloride assayOrdered By: Jorge Emery on 10-27-2024 Chloride [Moles/Vol] 100 mmol/L 98-108 [facility] Eosinophil percentageOrdered By: Dago Emery on 10-27-2024 Eosinophils/100 WBC (Bld) 3.0 % 0-5 [facility] Erythrocyte distribution wid th ratioOrdered By: Dago Emery on 10-27-2024 Erythrocyte distribution width (RBC) [Ratio] 15.9 % High 11.6-14.6 [facility] Erythrocyte distribution wid th standard deviationOrdered By: Dago Emery on 10-27-2024 Erythrocyte distribution width (RBC) [Ratio] 65.3 fl High 35.1-43.9 [facility] Erythrocyte morphology asses smentOrdered By: Dago Emery on 10-27-2024 RBC morphology finding Nom (Bld) NORM C+C NORMAL NORM C&C [facility] Glomerular filtration rate ( GFR) estimation/1.73 sq m using serum, plasma, or whole bOrdered By: Dago Emery on 10-27-2024 GFR/1.73 sq M.predicted among non-blacks MDRD (S/P/Bld) [Vol rate/Area] 47 mL/min/{1.73_m2} Low >60 [facility] Comment on above: mL/min/1.73m2 CKD-EP I Creatinine Equation (2020) Immature granulocytes/100 WB C Auto (Bld)Ordered By: Dago Eemry on 10-27-2024 Immature granulocytes/100 WBC (Bld) 1.500 % High 0.0-0.9 [facility] Comment on above: IG% - Immature Granu locytes (promyelocytes, myelocytes and metamyelocytes) > 1% indicates that a LEFT SHIFT is Present. Laboratory - Hematology and Cell countsOrdered By: Dago Emery on 10-27-2024 Anisocytosis Ql (Bld) 2+ [facility] MCV (mean corpuscular volume ) determinationOrdered By: Dago Emery on 10-27-2024 MCV (RBC) [Entitic vol] 113.4 fL High 81-99 [facility] Mean corpuscular hemoglobin (MCH) determinationOrdered By: Dago Emery 10-27-2024 MCH (RBC) [Entitic mass] 37.0 pg High 27.0-32.0 [facility] Mean corpuscular hemoglobin concentration (MCHC) determinationOrdered By: Dago Emery 10-27-2024 MCHC (RBC) [Mass/Vol] 32.7 g/dL 32-36 [facility] Mean platelet volume determi nationOrdered By: Dago Emery on 10-27-2024 Platelet mean volume (Bld) [Entitic vol] 9.9 fL 6.2-12.0 [facility] Monocyte percentageOrdered B y: Dago Emery 10-27-2024 Monocytes/100 WBC (Bld) 10.6 % High 0-10 [facility] Neutrophil percentageOrdered By: Dago Emery 10-27-2024 Neutrophils/100 WBC (Bld) 56.8 % 47-70 [facility] Nucleated red blood cell per centageOrdered By: Dago Emery 10-27-2024 Nucleated RBC/100 WBC (Bld) [Ratio] 0 % 0-5 [facility] Platelet countOrdered By: Jorge Emery on 10-27-2024 Platelets (Bld) [#/Vol] 230 10*3/uL 150-450 [facility] Potassium measurement (mass/ volume)Ordered By: Dago Emery 10-27-2024 Potassium (Unsp spec) [Mass/Vol] 4.5 mmol/L 3.3-5.1 [facility] RBC Auto (Bld) [#/Vol]Ordere d By: Dago Emery on 10-27-2024 RBC (Bld) [#/Vol] 2.16 10*6/uL Low 4.2-5.4 [facility] Serum creatinine measurement (mass/volume)Ordered By: Dago Emery on 10-27-2024 Creatinine [Mass/Vol] 1.16 mg/dL 0.70-1.20 [facility] Serum glucose measurement (m ass/volume)Ordered By: Dago Emery on 10-27-2024 Glucose [Mass/Vol] 85 mg/dL 70-99 [facility] Serum or plasma calcium niels urement (mass/volume)Ordered By: Dago Emery on 10-27-2024 Calcium [Mass/Vol] 8.8 mg/dL 7.6-11.0 [facility] Serum or plasma urea nitroge n measurement (mass/volume)Ordered By: Dago Emery on 10-27-2024 Urea nitrogen [Mass/Vol] 28 mg/dL High 4-19 [facility] Sodium levelOrdered By: Dago Emery on 10-27-2024 Sodium [Moles/Vol] 133 mmol/L 133-145 [facility] White blood cell (WBC) count Ordered By: Dago Emery on 10-27-2024 WBC (Bld) [#/Vol] 4.7 10*3/uL 4.4-11.0 [facility] Basic Metabolic Profile (BMP )on 10-22-2024 BUN/CRE 26.3 RATIO High 10-20 [facility] Comment on above: Performed By: #### L 500.2500, L100.0100 ####[facility] [address] [place], [address] Calcium [Mass/Vol] 8.9 mg/dL Normal 7.6-11.0 [facility] Comment on above: Performed By: #### L 500.2500, L100.0100 ####[facility] [address] [place], [address] Chloride [Moles/Vol] 103 mmol/L Normal 98-108 [facility] Comment on above: Performed By: #### L 500.2500, L100.0100 ####[facility] [address] [place], [address] CO2 [Moles/Vol] 22.0 mmol/L Normal 21.0-32.0 [facility] Comment on above: Performed By: #### L 500.2500, L100.0100 ####[facility] [address] [place], [address] Creatinine [Mass/Vol] 0.84 mg/dL Normal 0.70-1.20 [facility] Comment on above: Performed By: #### L 500.2500, L100.0100 ####[facility] [address] [place], [address] ECRCL 57.97 ml/min Normal 50-250 [facility] Comment on above: Performed By: #### L 500.2500, L100.0100 ####[facility] [address] [place], [address] GAP 10 Normal 5-15 [facility] Comment on above: Performed By: #### L 500.2500, L100.0100 ####[facility] [address] [place], [address] GFR/1.73 sq M.predicted among non-blacks MDRD (S/P/Bld) [Vol rate/Area] 70 mL/min/{1.73_m2} Normal >60 [facility] Comment on above: Result Comment: mL/m in/1.73m2 CKD-EPI Creatinine Equation (2020) Performed By: #### L 500.2500, L100.0100 ####[facility] [address] [place], [address] Glucose [Mass/Vol] 94 mg/dL Normal 70-99 [facility] Comment on above: Performed By: #### L 500.2500, L100.0100 ####[facility] [address] [place], [address] Potassium [Moles/Vol] 4.0 mmol/L Normal 3.3-5.1 [facility] Comment on above: Performed By: #### L 500.2500, L100.0100 ####[facility] [address] [place], [address] Sodium [Moles/Vol] 135 mmol/L Normal 133-145 [facility] Comment on above: Performed By: #### L 500.2500, L100.0100 ####[facility] [address] [place], [address] Urea nitrogen [Mass/Vol] 22 mg/dL High 4-19 [facility] Comment on above: Performed By: #### L 500.2500, L100.0100 ####[facility] [address] [place], [address] CBC W/Diff, Automatedon 08-0 3-2024 Absolute Lymph 1.22 X10 3/uL Normal 0.83-4.51 [facility] Comment on above: Performed By: #### L 500.2500, L100.0100 ####[facility] [address] [place], [address] Absolute Neut 3.2 X10 3/uL Normal 2.0-7.7 [facility] Comment on above: Performed By: #### L 500.2500, L100.0100 ####[facility] [address] [place], [address] Basophils/100 WBC (Bld) 0.6 % Normal 0-1 [facility] Comment on above: Performed By: #### L 500.2500, L100.0100 ####[facility] [address] [place], [address] Eosinophils/100 WBC (Bld) 1.6 % Normal 0-5 [facility] Comment on above: Performed By: #### L 500.2500, L100.0100 ####[facility] [address] [place], [address] Erythrocyte distribution width (RBC) [Ratio] 15.7 % High 11.6-14.6 [facility] Comment on above: Performed By: #### L 500.2500, L100.0100 ####[facility] [id number] [place], [address] Hematocrit (Bld) [Volume fraction] 26.6 % Low 37-47 [facility] Comment on above: Performed By: #### L 500.2500, L100.0100 ####[facility] [id number] [place], [address] Hemoglobin (Bld) [Mass/Vol] 8.8 g/dL Low 12.0-15.0 [facility] Comment on above: Performed By: #### L 500.2500, L100.0100 ####[facility] [id number] [place], [address] IG% 0.600 Normal 0.0-0.9 [facility] Comment on above: Result Comment: IG% - Immature Granulocytes (promyelocytes, myelocytes andmetamyelocytes) > 1% indicates that a LEFT SHIFT is Present. Performed By: #### L 500.2500, L100.0100 ####[facility] [id number] [place], [address] Lymphocytes/100 WBC (Bld) 24.1 % Normal 19-41 [facility] Comment on above: Performed By: #### L 500.2500, L100.0100 ####[facility] [id number] [place], [address] MCH (RBC) [Entitic mass] 37.0 pg High 27.0-32.0 [facility] Comment on above: Performed By: #### L 500.2500, L100.0100 ####[facility] [id number] [place], [address] MCHC (RBC) [Mass/Vol] 33.1 g/dL Normal 32-36 [facility] Comment on above: Performed By: #### L 500.2500, L100.0100 ####[facility] [id number] [place], [address] MCV (RBC) [Entitic vol] 111.8 fL High 81-99 [facility] Comment on above: Performed By: #### L 500.2500, L100.0100 ####[facility] [address] [place], [address] Monocytes/100 WBC (Bld) 10.1 % High 0-10 [facility] Comment on above: Performed By: #### L 500.2500, L100.0100 ####[facility] [address] [place], [address] Neutrophils/100 WBC (Bld) 63.0 % Normal 47-70 [facility] Comment on above: Performed By: #### L 500.2500, L100.0100 ####[facility] [address] [place], [address] Nucleated RBC (Bld) [#/Vol] 0 10*3/uL Normal 0-5 [facility] Comment on above: Performed By: #### L 500.2500, L100.0100 ####[facility] [address] [place], [address] Platelet mean volume (Bld) [Entitic vol] 10.4 fL Normal 6.2-12.0 [facility] Comment on above: Performed By: #### L 500.2500, L100.0100 ####[facility] [address] [place], [address] Platelets (Bld) [#/Vol] 248 10*3/uL Normal 150-450 [facility] Comment on above: Performed By: #### L 500.2500, L100.0100 ####[facility] [address] [place], [address] RBC (Bld) [#/Vol] 2.38 10*6/uL Low 4.2-5.4 [facility] Comment on above: Performed By: #### L 500.2500, L100.0100 ####[facility] [address] [place], [address] RDW SD 64.2 fl High 35.1-43.9 [facility] Comment on above: Performed By: #### L 500.2500, L100.0100 ####[facility] [address] [place], [address] WBC (Bld) [#/Vol] 5.1 10*3/uL Normal 4.4-11.0 [facility] Comment on above: Performed By: #### L 500.2500, L100.0100 ####[facility] [address] [place], [address] Absolute lymphocyte countOrd ered By: Nela Wallace on 10-21-2024 Lymphocytes Auto (Unsp spec) [#/Vol] 1.47 10*3/uL 0.83-4.51 [facility] Absolute neutrophil countOrd ered By: Nela Wallace on 10-21-2024 Neutrophils (Bld) [#/Vol] 3.0 10*3/uL 2.0-7.7 [facility] Anion gap in Serum or Plasma Ordered By: Nela Wallace on 10-21-2024 Anion gap [Moles/Vol] 10 mmol/L 5-15 [facility] Automated lymphocyte count a s percentage of total leukocytesOrdered By: Nela Wallace on 10-21-2024 Lymphocytes/100 WBC Auto (Unsp spec) 27.2 % 19-41 [facility] BUN/creatinine ratioOrdered By: Nela Wallace on 10-21-2024 Urea nitrogen/Creatinine [Mass ratio] 23.7 mg/mg High 10-20 [facility] Basic Metabolic Profile (BMP )on 10-21-2024 BUN/CRE 23.7 RATIO High 10-20 [facility] Comment on above: Performed By: #### L 500.2500 ####[facility] [address] [place], [address] Calcium [Mass/Vol] 8.5 mg/dL Normal 7.6-11.0 [facility] Comment on above: Performed By: #### L 500.2500 ####[facility] [address] [place], [address] Chloride [Moles/Vol] 103 mmol/L Normal 98-108 [facility] Comment on above: Performed By: #### L 500.2500 ####[facility] [address] [place], [address] CO2 [Moles/Vol] 21.9 mmol/L Normal 21.0-32.0 [facility] Comment on above: Performed By: #### L 500.2500 ####[facility] [address] [place], [address] Creatinine [Mass/Vol] 1.04 mg/dL Normal 0.70-1.20 [facility] Comment on above: Performed By: #### L 500.2500 ####[facility] [address] [place], [address] ECRCL 45.68 ml/min Low 50-250 [facility] Comment on above: Performed By: #### L 500.2500 ####[facility] [address] [place], [address] GAP 10 Normal 5-15 [facility] Comment on above: Performed By: #### L 500.2500 ####[facility] [address] [place], [address] GFR/1.73 sq M.predicted among non-blacks MDRD (S/P/Bld) [Vol rate/Area] 54 mL/min/{1.73_m2} Low >60 [facility] Comment on above: Result Comment: mL/m in/1.73m2 CKD-EPI Creatinine Equation (2020) Performed By: #### L 500.2500 ####[facility] [address] [place], [address] Glucose [Mass/Vol] 86 mg/dL Normal 70-99 [facility] Comment on above: Performed By: #### L 500.2500 ####[facility] [address] [place], [address] Potassium [Moles/Vol] 3.8 mmol/L Normal 3.3-5.1 [facility] Comment on above: Performed By: #### L 500.2500 ####[facility] [address] [place], [address] Sodium [Moles/Vol] 135 mmol/L Normal 133-145 [facility] Comment on above: Performed By: #### L 500.2500 ####[facility] [address] [place], [address] Urea nitrogen [Mass/Vol] 25 mg/dL High 4-19 [facility] Comment on above: Performed By: #### L 500.2500 ####[facility] [address] [place], [address] Basophil percentageOrdered B y: Nela Wallace on 10-21-2024 Basophils/100 WBC (Bld) 0.4 % 0-1 [facility] CBC W/Diff, Automatedon Absolute Lymph 1.47 X10 3/uL Normal 0.83-4.51 [facility] Comment on above: Performed By: #### L 100.0100 ####[facility] [address] [place], [address] Absolute Neut 3.0 X10 3/uL Normal 2.0-7.7 [facility] Comment on above: Performed By: #### L 100.0100 ####[facility] [address] [place], [address] Basophils/100 WBC (Bld) 0.4 % Normal 0-1 [facility] Comment on above: Performed By: #### L 100.0100 ####[facility] [address] [place], [address] Eosinophils/100 WBC (Bld) 1.9 % Normal 0-5 [facility] Comment on above: Performed By: #### L 100.0100 ####[facility] [address] [place], [address] Erythrocyte distribution width (RBC) [Ratio] 15.8 % High 11.6-14.6 [facility] Comment on above: Performed By: #### L 100.0100 ####[facility] [address] [place], [address] Hematocrit (Bld) [Volume fraction] 25.5 % Low 37-47 [facility] Comment on above: Performed By: #### L 100.0100 ####[facility] [address] [place], [address] Hemoglobin (Bld) [Mass/Vol] 8.7 g/dL Low 12.0-15.0 [facility] Comment on above: Performed By: #### L 100.0100 ####[facility] [address] [place], [address] IG% 0.600 Normal 0.0-0.9 [facility] Comment on above: Result Comment: IG% - Immature Granulocytes (promyelocytes, myelocytes andmetamyelocytes) > 1% indicates that a LEFT SHIFT is Present. Performed By: #### L 100.0100 ####[facility] [address] [place], [address] Lymphocytes/100 WBC (Bld) 27.2 % Normal 19-41 [facility] Comment on above: Performed By: #### L 100.0100 ####[facility] [address] [place], [address] MCH (RBC) [Entitic mass] 37.8 pg High 27.0-32.0 [facility] Comment on above: Performed By: #### L 100.0100 ####[facility] [address] [place], [address] MCHC (RBC) [Mass/Vol] 34.1 g/dL Normal 32-36 [facility] Comment on above: Performed By: #### L 100.0100 ####[facility] [address] [place], [address] MCV (RBC) [Entitic vol] 110.9 fL High 81-99 [facility] Comment on above: Performed By: #### L 100.0100 ####[facility] [address] [place], [address] Monocytes/100 WBC (Bld) 15.2 % High 0-10 [facility] Comment on above: Performed By: #### L 100.0100 ####[facility] [address] [place], [address] Neutrophils/100 WBC (Bld) 54.7 % Normal 47-70 [facility] Comment on above: Performed By: #### L 100.0100 ####[facility] [address] [place], [address] Nucleated RBC (Bld) [#/Vol] 0 10*3/uL Normal 0-5 [facility] Comment on above: Performed By: #### L 100.0100 ####[facility] [address] [place], [address] Platelet mean volume (Bld) [Entitic vol] 10.8 fL Normal 6.2-12.0 [facility] Comment on above: Performed By: #### L 100.0100 ####[facility] [address] [place], [address] Platelets (Bld) [#/Vol] 224 10*3/uL Normal 150-450 [facility] Comment on above: Performed By: #### L 100.0100 ####[facility] [address] [place], [address] RBC (Bld) [#/Vol] 2.30 10*6/uL Low 4.2-5.4 [facility] Comment on above: Performed By: #### L 100.0100 ####[facility] [address] [place], [address] RDW SD 64.2 fl High 35.1-43.9 [facility] Comment on above: Performed By: #### L 100.0100 ####[facility] [address] [place], [address] WBC (Bld) [#/Vol] 5.4 10*3/uL Normal 4.4-11.0 [facility] Comment on above: Performed By: #### L 100.0100 ####[facility] [address] [place], [address] Carbon dioxide, total [Moles /volume] in Central venous bloodOrdered By: Nela Wallace on 10-21-2024 CO2 [Moles/Vol] 21.9 mmol/L 21.0-32.0 [facility] Chloride assayOrdered By: Bharathi Wallace on 10-21-2024 Chloride [Moles/Vol] 103 mmol/L 98-108 [facility] Eosinophil percentageOrdered By: Nela Wallace on 10-21-2024 Eosinophils/100 WBC (Bld) 1.9 % 0-5 [facility] Erythrocyte distribution wid th ratioOrdered By: Nela Wallace on 10-21-2024 Erythrocyte distribution width (RBC) [Ratio] 15.8 % High 11.6-14.6 [facility] Erythrocyte distribution wid th standard deviationOrdered By: Nela Wallace on 10-21-2024 Erythrocyte distribution width (RBC) [Ratio] 64.2 fl High 35.1-43.9 [facility] Glomerular filtration rate ( GFR) estimation/1.73 sq m using serum, plasma, or whole bOrdered By: Nela Wallace on 10-21-2024 GFR/1.73 sq M.predicted among non-blacks MDRD (S/P/Bld) [Vol rate/Area] 54 mL/min/{1.73_m2} Low >60 [facility] Comment on above: mL/min/1.73m2 CKD-EP I Creatinine Equation (2020) Hematocrit Auto (Bld) [Volum e fraction]Ordered By: Nela Wallace on 10-21-2024 Hematocrit (Bld) [Volume fraction] 25.5 % Low 37-47 [facility] Hemoglobin measurementOrdere d By: Nela Wallace on 10-21-2024 Hemoglobin (Bld) [Mass/Vol] 8.7 g/dL Low 12.0-15.0 [facility] Immature granulocytes/100 WB C Auto (Bld)Ordered By: Nela Wallace on 10-21-2024 Immature granulocytes/100 WBC (Bld) 0.600 % 0.0-0.9 [facility] Comment on above: IG% - Immature Granu locytes (promyelocytes, myelocytes and metamyelocytes) > 1% indicates that a LEFT SHIFT is Present. MCV (mean corpuscular volume ) determinationOrdered By: Nela Wallace on 10-21-2024 MCV (RBC) [Entitic vol] 110.9 fL High 81-99 [facility] Mean corpuscular hemoglobin (MCH) determinationOrdered By: Nela Wallace 10-21-2024 MCH (RBC) [Entitic mass] 37.8 pg High 27.0-32.0 [facility] Mean corpuscular hemoglobin concentration (MCHC) determinationOrdered By: Nela Wallace 10-21-2024 MCHC (RBC) [Mass/Vol] 34.1 g/dL 32-36 [facility] Mean platelet volume determi nationOrdered By: Nela Wallace on 10-21-2024 Platelet mean volume (Bld) [Entitic vol] 10.8 fL 6.2-12.0 [facility] Monocyte percentageOrdered B y: Nela Wallace on 10-21-2024 Monocytes/100 WBC (Bld) 15.2 % High 0-10 [facility] Neutrophil percentageOrdered By: Nela Wallace on 10-21-2024 Neutrophils/100 WBC (Bld) 54.7 % 47-70 [facility] Nucleated red blood cell per centageOrdered By: Nela Wallace on 10-21-2024 Nucleated RBC/100 WBC (Bld) [Ratio] 0 % 0-5 [facility] Platelet countOrdered By: Bharathi Wallace on 10-21-2024 Platelets (Bld) [#/Vol] 224 10*3/uL 150-450 [facility] Potassium measurement (mass/ volume)Ordered By: Nela Wallace on 10-21-2024 Potassium (Unsp spec) [Mass/Vol] 3.8 mmol/L 3.3-5.1 [facility] RBC Auto (Bld) [#/Vol]Ordere d By: Nela Wallace on 10-21-2024 RBC (Bld) [#/Vol] 2.30 10*6/uL Low 4.2-5.4 [facility] Serum creatinine measurement (mass/volume)Ordered By: Nela Wallace on 10-21-2024 Creatinine [Mass/Vol] 1.04 mg/dL 0.70-1.20 [facility] Serum glucose measurement (m ass/volume)Ordered By: Nela Wallace on 10-21-2024 Glucose [Mass/Vol] 86 mg/dL 70-99 [facility] Serum or plasma calcium niels urement (mass/volume)Ordered By: Nela Wallace on 10-21-2024 Calcium [Mass/Vol] 8.5 mg/dL 7.6-11.0 [facility] Serum or plasma urea nitroge n measurement (mass/volume)Ordered By: Nela Wallace on 10-21-2024 Urea nitrogen [Mass/Vol] 25 mg/dL High 4-19 [facility] Sodium levelOrdered By: Tracie Wallace on 10-21-2024 Sodium [Moles/Vol] 135 mmol/L 133-145 [facility] White blood cell (WBC) count Ordered By: Nela Wallace on 10-21-2024 WBC (Bld) [#/Vol] 5.4 10*3/uL 4.4-11.0 [facility] Basic Metabolic Profile (BMP )on 10-20-2024 BUN/CRE 17.8 RATIO Normal 10-20 [facility] Comment on above: Performed By: #### L 500.2500 ####[facility] [address] [facility] [address] Calcium [Mass/Vol] 8.3 mg/dL Normal 7.6-11.0 [facility] Comment on above: Performed By: #### L 500.2500 ####[facility] [address] [place], [address] Chloride [Moles/Vol] 105 mmol/L Normal 98-108 [facility] Comment on above: Performed By: #### L 500.2500 ####[facility] [address] [place], [address] CO2 [Moles/Vol] 21.4 mmol/L Normal 21.0-32.0 [facility] Comment on above: Performed By: #### L 500.2500 ####[facility] [address] [place], [address] Creatinine [Mass/Vol] 0.86 mg/dL Normal 0.70-1.20 [facility] Comment on above: Performed By: #### L 500.2500 ####[facility] [address] [place], [address] ECRCL 55.24 ml/min Normal 50-250 [facility] Comment on above: Performed By: #### L 500.2500 ####[facility] [address] [place], [address] GAP 10 Normal 5-15 [facility] Comment on above: Performed By: #### L 500.2500 ####[facility] [address] [place], [address] GFR/1.73 sq M.predicted among non-blacks MDRD (S/P/Bld) [Vol rate/Area] 68 mL/min/{1.73_m2} Normal >60 [facility] Comment on above: Result Comment: mL/m in/1.73m2 CKD-EPI Creatinine Equation (2020) Performed By: #### L 500.2500 ####[facility] [address] [place], [address] Glucose [Mass/Vol] 82 mg/dL Normal 70-99 [facility] Comment on above: Performed By: #### L 500.2500 ####[facility] [address] [place], [address] Potassium [Moles/Vol] 3.8 mmol/L Normal 3.3-5.1 [facility] Comment on above: Performed By: #### L 500.2500 ####[facility] [address] [place], [address] Sodium [Moles/Vol] 136 mmol/L Normal 133-145 [facility] Comment on above: Performed By: #### L 500.2500 ####[facility] [address] [place], [address] Urea nitrogen [Mass/Vol] 15 mg/dL Normal 4-19 [facility] Comment on above: Performed By: #### L 500.2500 ####[facility] [address] [place], [address] CBC-Complete Blood Cnt No Di ffon 10-20-2024 Erythrocyte distribution width (RBC) [Ratio] 15.5 % High 11.6-14.6 [facility] Comment on above: Performed By: #### L 100.0500 ####[facility] [address] [place], [address] Hematocrit (Bld) [Volume fraction] 27.0 % Low 37-47 [facility] Comment on above: Performed By: #### L 100.0500 ####[facility] [address] [place], [address] Hemoglobin (Bld) [Mass/Vol] 9.1 g/dL Low 12.0-15.0 [facility] Comment on above: Performed By: #### L 100.0500 ####[facility] [address] [place], [address] MCH (RBC) [Entitic mass] 37.6 pg High 27.0-32.0 [facility] Comment on above: Performed By: #### L 100.0500 ####[facility] [address] [place], [address] MCHC (RBC) [Mass/Vol] 33.7 g/dL Normal 32-36 [facility] Comment on above: Performed By: #### L 100.0500 ####[facility] [address] [place], [address] MCV (RBC) [Entitic vol] 111.6 fL High 81-99 [facility] Comment on above: Performed By: #### L 100.0500 ####[facility] [address] [place], [address] Platelet mean volume (Bld) [Entitic vol] 10.8 fL Normal 6.2-12.0 [facility] Comment on above: Performed By: #### L 100.0500 ####[facility] [address] [place], [address] Platelets (Bld) [#/Vol] 210 10*3/uL Normal 150-450 [facility] Comment on above: Performed By: #### L 100.0500 ####[facility] [address] [place], [address] RBC (Bld) [#/Vol] 2.42 10*6/uL Low 4.2-5.4 [facility] Comment on above: Performed By: #### L 100.0500 ####[facility] [address] [place], [address] RDW SD 64.2 fl High 35.1-43.9 [facility] Comment on above: Performed By: #### L 100.0500 ####[facility] [address] [place], [address] WBC (Bld) [#/Vol] 7.0 10*3/uL Normal 4.4-11.0 [facility] Comment on above: Performed By: #### L 100.0500 ####[facility] [address] [place], [address] Basic Metabolic Profile (BMP )on 10-19-2024 BUN/CRE 16.2 RATIO Normal 10-20 [facility] Comment on above: Performed By: #### L 500.2500, L100.0100 ####[facility] [address] [place], [address] Calcium [Mass/Vol] 8.9 mg/dL Normal 7.6-11.0 [facility] Comment on above: Performed By: #### L 500.2500, L100.0100 ####[facility] [address] [place], [address] Chloride [Moles/Vol] 98 mmol/L Normal 98-108 [facility] Comment on above: Performed By: #### L 500.2500, L100.0100 ####[facility] [address] [place], [address] CO2 [Moles/Vol] 21.9 mmol/L Normal 21.0-32.0 [facility] Comment on above: Performed By: #### L 500.2500, L100.0100 ####[facility] [address] [place], [address] Creatinine [Mass/Vol] 1.02 mg/dL Normal 0.70-1.20 [facility] Comment on above: Performed By: #### L 500.2500, L100.0100 ####[facility] [address] [place], [address] ECRCL 46.57 ml/min Low 50-250 [facility] Comment on above: Performed By: #### L 500.2500, L100.0100 ####[facility] [address] [place], [address] GAP 11 Normal 5-15 [facility] Comment on above: Performed By: #### L 500.2500, L100.0100 ####[facility] [address] [place], [address] GFR/1.73 sq M.predicted among non-blacks MDRD (S/P/Bld) [Vol rate/Area] 55 mL/min/{1.73_m2} Low >60 [facility] Comment on above: Result Comment: mL/m in/1.73m2 CKD-EPI Creatinine Equation (2020) Performed By: #### L 500.2500, L100.0100 ####[facility] [address] [place], [address] Glucose [Mass/Vol] 94 mg/dL Normal 70-99 [facility] Comment on above: Performed By: #### L 500.2500, L100.0100 ####[facility] [address] [place], [address] Potassium [Moles/Vol] 4.1 mmol/L Normal 3.3-5.1 [facility] Comment on above: Performed By: #### L 500.2500, L100.0100 ####[facility] [address] [place], [address] Sodium [Moles/Vol] 131 mmol/L Low 133-145 [facility] Comment on above: Performed By: #### L 500.2500, L100.0100 ####[facility] [address] [place], [address] Urea nitrogen [Mass/Vol] 17 mg/dL Normal 4-19 [facility] Comment on above: Performed By: #### L 500.2500, L100.0100 ####[facility] [address] [place], [address] Bedside Glucoseon 10-19-2024 FINGERSTICK GLU 120 mg/dL High 74-106 [facility] Comment on above: Result Comment: TRACEY SALDAÑA OF PATIENT CARE PER NURSING PROTOCOL Performed By: #### L 501.080 ####[facility] [address] [place], [address] CBC W/Diff, Automatedon - Absolute Lymph 1.13 X10 3/uL Normal 0.83-4.51 [facility] Comment on above: Performed By: #### L 100.0100 ####[facility] [address] [place], [address] Absolute Neut 5.2 X10 3/uL Normal 2.0-7.7 [facility] Comment on above: Performed By: #### L 100.0100 ####[facility] [address] [place], [address] Basophils/100 WBC (Bld) 0.3 % Normal 0-1 [facility] Comment on above: Performed By: #### L 100.0100 ####[facility] [address] [place], [address] Eosinophils/100 WBC (Bld) 0.9 % Normal 0-5 [facility] Comment on above: Performed By: #### L 100.0100 ####[facility] [address] [place], [address] Erythrocyte distribution width (RBC) [Ratio] 15.5 % High 11.6-14.6 [facility] Comment on above: Performed By: #### L 100.0100 ####[facility] [address] [place], [address] Hematocrit (Bld) [Volume fraction] 27.6 % Low 37-47 [facility] Comment on above: Performed By: #### L 100.0100 ####[facility] [address] [place], [address] Hemoglobin (Bld) [Mass/Vol] 9.4 g/dL Low 12.0-15.0 [facility] Comment on above: Performed By: #### L 100.0100 ####[facility] [address] [place], [address] IG% 0.600 Normal 0.0-0.9 [facility] Comment on above: Result Comment: IG% - Immature Granulocytes (promyelocytes, myelocytes andmetamyelocytes) > 1% indicates that a LEFT SHIFT is Present. Performed By: #### L 100.0100 ####[facility] [address] [place], [address] Lymphocytes/100 WBC (Bld) 14.4 % Low 19-41 [facility] Comment on above: Performed By: #### L 100.0100 ####[facility] [address] [place], [address] MCH (RBC) [Entitic mass] 37.8 pg High 27.0-32.0 [facility] Comment on above: Performed By: #### L 100.0100 ####[facility] [address] [place], [address] MCHC (RBC) [Mass/Vol] 34.1 g/dL Normal 32-36 [facility] Comment on above: Performed By: #### L 100.0100 ####[facility] [address] [place], [address] MCV (RBC) [Entitic vol] 110.8 fL High 81-99 [facility] Comment on above: Performed By: #### L 100.0100 ####[facility] [address] [place], [address] Monocytes/100 WBC (Bld) 17.1 % High 0-10 [facility] Comment on above: Performed By: #### L 100.0100 ####[facility] [address] [place], [address] Neutrophils/100 WBC (Bld) 66.7 % Normal 47-70 [facility] Comment on above: Performed By: #### L 100.0100 ####[facility] [address] [place], [address] Nucleated RBC (Bld) [#/Vol] 0 10*3/uL Normal 0-5 [facility] Comment on above: Performed By: #### L 100.0100 ####[facility] [address] [place], [address] Platelet mean volume (Bld) [Entitic vol] 11.0 fL Normal 6.2-12.0 [facility] Comment on above: Performed By: #### L 100.0100 ####[facility] [address] [place], [address] Platelets (Bld) [#/Vol] 181 10*3/uL Normal 150-450 [facility] Comment on above: Performed By: #### L 100.0100 ####[facility] [address] [place], [address] RBC (Bld) [#/Vol] 2.49 10*6/uL Low 4.2-5.4 [facility] Comment on above: Performed By: #### L 100.0100 ####[facility] [address] [place], [address] RDW SD 62.7 fl High 35.1-43.9 [facility] Comment on above: Performed By: #### L 100.0100 ####[facility] [address] [place], [address] WBC (Bld) [#/Vol] 7.8 10*3/uL Normal 4.4-11.0 [facility] Comment on above: Performed By: #### L 100.0100 ####[facility] [address] [place], [address] Absolute Neut Normal 2.0-7.7 [facility] Comment on above: Result Comment: Canc elled via OM: Duplicate Order Performed By: #### L 500.2500, L100.0100 ####[facility] [address] [place], [address] HCT Normal 37-47 [facility] Comment on above: Result Comment: Canc elled via OM: Duplicate Order Performed By: #### L 500.2500, L100.0100 ####[facility] [address] [place], [address] HGB Normal 12.0-15.0 [facility] Comment on above: Result Comment: Canc elled via OM: Duplicate Order Performed By: #### L 500.2500, L100.0100 ####[facility] [address] [place], [address] MCH Normal 27.0-32.0 [facility] Comment on above: Result Comment: Canc elled via OM: Duplicate Order Performed By: #### L 500.2500, L100.0100 ####[facility] [id number] [place], [address] MCHC Normal 32-36 [facility] Comment on above: Result Comment: Canc elled via OM: Duplicate Order Performed By: #### L 500.2500, L100.0100 ####[facility] [address] [place], [address] MCV Normal 81-99 [facility] Comment on above: Result Comment: Canc elled via OM: Duplicate Order Performed By: #### L 500.2500, L100.0100 ####[facility] [address] [place], [address] NEUT% Normal 47-70 [facility] Comment on above: Result Comment: Canc elled via OM: Duplicate Order Performed By: #### L 500.2500, L100.0100 ####[facility] [address] [place], [address] PLT Normal 150-450 [facility] Comment on above: Result Comment: Canc elled via OM: Duplicate Order Performed By: #### L 500.2500, L100.0100 ####[facility] [address] [place], [address] RBC Normal 4.2-5.4 [facility] Comment on above: Result Comment: Canc elled via OM: Duplicate Order Performed By: #### L 500.2500, L100.0100 ####[facility] [address] [place], [address] RDW CV Normal 11.6-14.6 [facility] Comment on above: Result Comment: Canc elled via OM: Duplicate Order Performed By: #### L 500.2500, L100.0100 ####[facility] [address] [place], [address] RDW SD Normal 35.1-43.9 [facility] Comment on above: Result Comment: Canc elled via OM: Duplicate Order Performed By: #### L 500.2500, L100.0100 ####[facility] [address] [place], [address] WBC Normal 4.4-11.0 [facility] Comment on above: Result Comment: Canc elled via OM: Duplicate Order Performed By: #### L 500.2500, L100.0100 ####[facility] [address] [place], [address] [facility] deOrdered By: Geo Rodriguez on 10-19-2024 Glucose [Mass/Vol] 120 mg/dL High 74-106 [facility] Comment on above: MANAGEMENT OF PATIEN T CARE PER NURSING PROTOCOL Basic Metabolic Profile (BMP )on 10-18-2024 BUN/CRE 18.0 RATIO Normal 10-20 [facility] Comment on above: Performed By: #### L 500.2500, L100.0100 ####[facility] [address] [place], [address] Calcium [Mass/Vol] 8.5 mg/dL Normal 7.6-11.0 [facility] Comment on above: Performed By: #### L 500.2500, L100.0100 ####[facility] [address] [place], [address] Chloride [Moles/Vol] 99 mmol/L Normal 98-108 [facility] Comment on above: Performed By: #### L 500.2500, L100.0100 ####[facility] [address] [place], [address] CO2 [Moles/Vol] 22.0 mmol/L Normal 21.0-32.0 [facility] Comment on above: Performed By: #### L 500.2500, L100.0100 ####[facility] [address] [place], [address] Creatinine [Mass/Vol] 0.92 mg/dL Normal 0.70-1.20 [facility] Comment on above: Performed By: #### L 500.2500, L100.0100 ####[facility] [address] [place], [address] ECRCL 51.63 ml/min Normal 50-250 [facility] Comment on above: Performed By: #### L 500.2500, L100.0100 ####[facility] [address] [place], [address] GAP 11 Normal 5-15 [facility] Comment on above: Performed By: #### L 500.2500, L100.0100 ####[facility] [address] [place], [address] GFR/1.73 sq M.predicted among non-blacks MDRD (S/P/Bld) [Vol rate/Area] 63 mL/min/{1.73_m2} Normal >60 [facility] Comment on above: Result Comment: mL/m in/1.73m2 CKD-EPI Creatinine Equation (2020) Performed By: #### L 500.2500, L100.0100 ####[facility] [address] [place], [address] Glucose [Mass/Vol] 96 mg/dL Normal 70-99 [facility] Comment on above: Performed By: #### L 500.2500, L100.0100 ####[facility] [address] [place], [address] Potassium [Moles/Vol] 3.7 mmol/L Normal 3.3-5.1 [facility] Comment on above: Performed By: #### L 500.2500, L100.0100 ####[facility] [address] [place], [address] Sodium [Moles/Vol] 133 mmol/L Normal 133-145 [facility] Comment on above: Performed By: #### L 500.2500, L100.0100 ####[facility] [address] [place], [address] Urea nitrogen [Mass/Vol] 17 mg/dL Normal 4-19 [facility] Comment on above: Performed By: #### L 500.2500, L100.0100 ####[facility] [address] [place], [address] CBC W/Diff, Automatedon 07-3 0-2025 Absolute Lymph 0.76 X10 3/uL Low 0.83-4.51 [facility] Comment on above: Performed By: #### L 500.2500, L100.0100 ####[facility] [address] [place], [address] Absolute Neut 5.0 X10 3/uL Normal 2.0-7.7 [facility] Comment on above: Performed By: #### L 500.2500, L100.0100 ####[facility] [address] [place], [address] Basophils/100 WBC (Bld) 0.1 % Normal 0-1 [facility] Comment on above: Performed By: #### L 500.2500, L100.0100 ####[facility] [address] [place], [address] Eosinophils/100 WBC (Bld) 0.4 % Normal 0-5 [facility] Comment on above: Performed By: #### L 500.2500, L100.0100 ####[facility] [address] [place], [address] Erythrocyte distribution width (RBC) [Ratio] 15.6 % High 11.6-14.6 [facility] Comment on above: Performed By: #### L 500.2500, L100.0100 ####[facility] [address] [place], [address] Hematocrit (Bld) [Volume fraction] 28.2 % Low 37-47 [facility] Comment on above: Performed By: #### L 500.2500, L100.0100 ####[facility] [address] [place], [address] Hemoglobin (Bld) [Mass/Vol] 9.4 g/dL Low 12.0-15.0 [facility] Comment on above: Performed By: #### L 500.2500, L100.0100 ####[facility] [address] [place], [address] IG% 0.300 Normal 0.0-0.9 [facility] Comment on above: Result Comment: IG% - Immature Granulocytes (promyelocytes, myelocytes andmetamyelocytes) > 1% indicates that a LEFT SHIFT is Present. Performed By: #### L 500.2500, L100.0100 ####[facility] [address] [place], [address] Lymphocytes/100 WBC (Bld) 11.1 % Low 19-41 [facility] Comment on above: Performed By: #### L 500.2500, L100.0100 ####[facility] [address] [place], [address] MCH (RBC) [Entitic mass] 36.9 pg High 27.0-32.0 [facility] Comment on above: Performed By: #### L 500.2500, L100.0100 ####[facility] [address] [place], [address] MCHC (RBC) [Mass/Vol] 33.3 g/dL Normal 32-36 [facility] Comment on above: Performed By: #### L 500.2500, L100.0100 ####[facility] [address] [place], [address] MCV (RBC) [Entitic vol] 110.6 fL High 81-99 [facility] Comment on above: Performed By: #### L 500.2500, L100.0100 ####[facility] [address] [place], [address] Monocytes/100 WBC (Bld) 14.6 % High 0-10 [facility] Comment on above: Performed By: #### L 500.2500, L100.0100 ####[facility] [address] [place], [address] Neutrophils/100 WBC (Bld) 73.5 % High 47-70 [facility] Comment on above: Performed By: #### L 500.2500, L100.0100 ####[facility] [address] [place], [address] Nucleated RBC (Bld) [#/Vol] 0 10*3/uL Normal 0-5 [facility] Comment on above: Performed By: #### L 500.2500, L100.0100 ####[facility] [address] [place], [address] Platelet mean volume (Bld) [Entitic vol] 10.4 fL Normal 6.2-12.0 [facility] Comment on above: Performed By: #### L 500.2500, L100.0100 ####[facility] [address] [place], [address] Platelets (Bld) [#/Vol] 176 10*3/uL Normal 150-450 [facility] Comment on above: Performed By: #### L 500.2500, L100.0100 ####[facility] [address] [place], [address] RBC (Bld) [#/Vol] 2.55 10*6/uL Low 4.2-5.4 [facility] Comment on above: Performed By: #### L 500.2500, L100.0100 ####[facility] [address] [place], [address] RDW SD 62.7 fl High 35.1-43.9 [facility] Comment on above: Performed By: #### L 500.2500, L100.0100 ####[facility] [address] [place], [address] WBC (Bld) [#/Vol] 6.8 10*3/uL Normal 4.4-11.0 [facility] Comment on above: Performed By: #### L 500.2500, L100.0100 ####[facility] [address] [place], [address] HH, Hemoglobin AND Hematocri ton 10-18-2024 Hematocrit (Bld) [Volume fraction] 28.2 % Low 37-47 [facility] Comment on above: Performed By: #### L 100.0600 ####[facility] [address] [place], [address] Hemoglobin (Bld) [Mass/Vol] 9.5 g/dL Low 12.0-15.0 [facility] Comment on above: Performed By: #### L 100.0600 ####[facility] [address] [place], [address] Ankle min 3 Viewson 10-18-19 25 Ankle min 3 Views Normal [facility] Basic Metabolic Profile (BMP )on 10-17-2024 BUN/CRE 20.7 RATIO High 10-20 [facility] Comment on above: Performed By: #### L 100.0500, L500.2500 ####[facility] [address] [place], [address] Calcium [Mass/Vol] 8.6 mg/dL Normal 7.6-11.0 [facility] Comment on above: Performed By: #### L 100.0500, L500.2500 ####[facility] [address] [place], [address] Chloride [Moles/Vol] 103 mmol/L Normal 98-108 [facility] Comment on above: Performed By: #### L 100.0500, L500.2500 ####[facility] [address] [place], [address] CO2 [Moles/Vol] 20.7 mmol/L Low 21.0-32.0 [facility] Comment on above: Performed By: #### L 100.0500, L500.2500 ####[facility] [address] [place], [address] Creatinine [Mass/Vol] 0.68 mg/dL Low 0.70-1.20 [facility] Comment on above: Performed By: #### L 100.0500, L500.2500 ####[facility] [address] [place], [address] ECRCL 59.38 ml/min Normal 50-250 [facility] Comment on above: Performed By: #### L 100.0500, L500.2500 ####[facility] [address] [place], [address] GAP 12 Normal 5-15 [facility] Comment on above: Performed By: #### L 100.0500, L500.2500 ####[facility] [address] [place], [address] GFR/1.73 sq M.predicted among non-blacks MDRD (S/P/Bld) [Vol rate/Area] 87 mL/min/{1.73_m2} Normal >60 [facility] Comment on above: Result Comment: mL/m in/1.73m2 CKD-EPI Creatinine Equation (2020) Performed By: #### L 100.0500, L500.2500 ####[facility] [address] [place], [address] Glucose [Mass/Vol] 135 mg/dL High 70-99 [facility] Comment on above: Performed By: #### L 100.0500, L500.2500 ####[facility] [address] [place], [address] Potassium [Moles/Vol] 3.9 mmol/L Normal 3.3-5.1 [facility] Comment on above: Performed By: #### L 100.0500, L500.2500 ####[facility] [address] [place], [address] Sodium [Moles/Vol] 136 mmol/L Normal 133-145 [facility] Comment on above: Performed By: #### L 100.0500, L500.2500 ####[facility] [address] [place], [address] Urea nitrogen [Mass/Vol] 14 mg/dL Normal 4-19 [facility] Comment on above: Performed By: #### L 100.0500, L500.2500 ####[facility] [address] [place], [address] CBC-Complete Blood Cnt No Di ffon 10-17-2024 Erythrocyte distribution width (RBC) [Ratio] 15.9 % High 11.6-14.6 [facility] Comment on above: Performed By: #### L 100.0500, L500.2500 ####[facility] [address] [place], [address] Hematocrit (Bld) [Volume fraction] 30.5 % Low 37-47 [facility] Comment on above: Performed By: #### L 100.0500, L500.2500 ####[facility] [address] [place], [address] Hemoglobin (Bld) [Mass/Vol] 10.2 g/dL Low 12.0-15.0 [facility] Comment on above: Performed By: #### L 100.0500, L500.2500 ####[facility] [address] [place], [address] MCH (RBC) [Entitic mass] 37.2 pg High 27.0-32.0 [facility] Comment on above: Performed By: #### L 100.0500, L500.2500 ####[facility] [address] [place], [address] MCHC (RBC) [Mass/Vol] 33.4 g/dL Normal 32-36 [facility] Comment on above: Performed By: #### L 100.0500, L500.2500 ####[facility] [address] [place], [address] MCV (RBC) [Entitic vol] 111.3 fL High 81-99 [facility] Comment on above: Performed By: #### L 100.0500, L500.2500 ####[facility] [address] [place], [address] Platelet mean volume (Bld) [Entitic vol] 10.6 fL Normal 6.2-12.0 [facility] Comment on above: Performed By: #### L 100.0500, L500.2500 ####[facility] [address] [place], [address] Platelets (Bld) [#/Vol] 176 10*3/uL Normal 150-450 [facility] Comment on above: Performed By: #### L 100.0500, L500.2500 ####[facility] [address] [place], [address] RBC (Bld) [#/Vol] 2.74 10*6/uL Low 4.2-5.4 [facility] Comment on above: Performed By: #### L 100.0500, L500.2500 ####[facility] [address] [place], [address] RDW SD 65.1 fl High 35.1-43.9 [facility] Comment on above: Performed By: #### L 100.0500, L500.2500 ####[facility] [address] [place], [address] WBC (Bld) [#/Vol] 7.1 10*3/uL Normal 4.4-11.0 [facility] Comment on above: Performed By: #### L 100.0500, L500.2500 ####[facility] [address] [place], [address] Extremity Lower without Cont raon 10-17-2024 Extremity Lower without Contra Normal [facility] Bedside Glucoseon 10-16-2024 FINGERSTICK GLU 113 mg/dL High 74-106 [facility] Comment on above: Result Comment: TRACEY SALDAÑA OF PATIENT CARE PER NURSING PROTOCOL Performed By: #### L 501.080 ####[facility] [address] [place], [address] Consultation - Hospitaliston 10-16-2024 Consultation - Hospitalist Normal [facility] Knee 1 or 2 Viewson 10-17-19 Knee 1 or 2 Views Normal [facility] Knee 1 or 2 Views Normal [facility] MR/POSTOP.ANEon 10-16-2024 MR/POSTOP.ANE Normal [facility] MR/HNDCHJEC0cy 10-16-2024 MR/POSTOPAN2 Normal [facility] Operative Reporton Operative Report Normal [facility] MRSA/SAID NASAL SCREENon MRSA+SAID SCRN Negative Normal [facility] Comment on above: Performed By: #### M 100.651 ####[facility] [address] [place], [place], [address] Absolute lymphocyte countOrd ered By: Carolyn Ruvalcaba on 10-11-2024 Lymphocytes Auto (Unsp spec) [#/Vol] 1.13 10*3/uL 0.83-4.51 [facility] Absolute neutrophil countOrd ered By: Carolyn Ruvalcaba on 10-11-2024 Neutrophils (Bld) [#/Vol] 2.1 10*3/uL 2.0-7.7 [facility] Anion gap in Serum or Plasma Ordered By: Carolyn Ruvalcaba on 10-11-2024 Anion gap [Moles/Vol] 13 mmol/L 5- [facility] Automated lymphocyte count a s percentage of total leukocytesOrdered By: Carolyn Ruvalcaba on 10-11-2024 Lymphocytes/100 WBC Auto (Unsp spec) 30.5 % - [facility] BUN/creatinine ratioOrdered By: Carolyn Ruvalcaba on 10-11-2024 Urea nitrogen/Creatinine [Mass ratio] 14.2 mg/mg - [facility] Basophil percentageOrdered B y: Carolyn Ruvalcaba on 10-11-2024 Basophils/100 WBC (Bld) 0.3 % 0-1 [facility] Bilirubin, totalOrdered By: Carolyn Ruvalcaba on 10-11-2024 Bilirubin [Mass/Vol] 0.40 mg/dL 0.00-1.30 [facility] Blood manual differential co mment interpretation (narrative result)Ordered By: Carolyn Ruvalcaba on 10-11-2024 Manual differential comment Jack (Bld) [Interp] SCANNED [facility] Blood polychromasia detectio n by light microscopyOrdered By: Carolyn Ruvalcaba on 10-11-2024 Polychromasia LM Ql (Bld) 1+ [facility] CBC W/Diff, Automatedon 09-20 Anisocytosis Ql (Bld) 1+ Normal [facility] Comment on above: Performed By: #### L 100.0100, L500.4050 ####[facility] [address] [place], [address] POLYCHROMASIA 1+ Normal [facility] Comment on above: Performed By: #### L 100.0100, L500.4050 ####[facility] [address] [place], [address] PLT EST ADEQUATE Normal ADEQ [facility] Comment on above: Performed By: #### L 100.0100, L500.4050 ####[facility] [address] [place], [address] SMEAR COMMENT SCANNED Normal [facility] Comment on above: Performed By: #### L 100.0100, L500.4050 ####[facility] [address] [place], [address] Carbon dioxide, total [Moles /volume] in Central venous bloodOrdered By: Carolynmilka Ruvalcaba on 10-11-2024 CO2 [Moles/Vol] 21.4 mmol/L 21.0-32.0 [facility] Chloride assayOrdered By: Ty ra Ruvalcaba on 10-11-2024 Chloride [Moles/Vol] 102 mmol/L 98-108 [facility] Comprehensive Metabolic Prof ilon 10-11-2024 Albumin [Mass/Vol] 4.0 g/dL Normal 3.4-4.8 [facility] Comment on above: Order Comment: CC: C MP CBCD TO DR RODRIGUEZ Performed By: #### L 100.0100, L500.4050 ####[facility] [address] [place], [address] Albumin/Globulin [Mass ratio] 1.4 {ratio} Normal 0.9-2.4 [facility] Comment on above: Order Comment: CC: C MP CBCD TO DR RODRIGUEZ Performed By: #### L 100.0100, L500.4050 ####[facility] [address] [place], [address] ALK PHOS 82 U/L Normal 35-104 [facility] Comment on above: Order Comment: CC: C MP CBCD TO DR RODRIGUEZ Performed By: #### L 100.0100, L500.4050 ####[facility] [address] [place], [address] ALT [Catalytic activity/Vol] 14 U/L Normal <=34 [facility] Comment on above: Order Comment: CC: C MP CBCD TO DR RODRIGUEZ Performed By: #### L 100.0100, L500.4050 ####[facility] [address] [place], [address] AST [Catalytic activity/Vol] 22 U/L Normal <=31 [facility] Comment on above: Order Comment: CC: C MP CBCD TO DR RODRIGUEZ Performed By: #### L 100.0100, L500.4050 ####[facility] [address] [place], [address] Bilirubin [Mass/Vol] 0.40 mg/dL Normal 0.00-1.30 [facility] Comment on above: Order Comment: CC: C MP CBCD TO DR RODRIGUEZ Performed By: #### L 100.0100, L500.4050 ####[facility] [address] [place], [address] BUN/CRE 14.2 RATIO Normal 10-20 [facility] Comment on above: Order Comment: CC: C MP CBCD TO DR RODRIGUEZ Performed By: #### L 100.0100, L500.4050 ####[facility] [address] [place], [address] Calcium [Mass/Vol] 9.3 mg/dL Normal 7.6-11.0 [facility] Comment on above: Order Comment: CC: C MP CBCD TO DR RODRIGUEZ Performed By: #### L 100.0100, L500.4050 ####[facility] [address] [place], [address] Chloride [Moles/Vol] 102 mmol/L Normal 98-108 [facility] Comment on above: Order Comment: CC: C MP CBCD TO DR RODRIGUEZ Performed By: #### L 100.0100, L500.4050 ####[facility] [address] [place], [address] CO2 [Moles/Vol] 21.4 mmol/L Normal 21.0-32.0 [facility] Comment on above: Order Comment: CC: C MP CBCD TO DR RODRIGUEZ Performed By: #### L 100.0100, L500.4050 ####[facility] [address] [place], [address] Creatinine [Mass/Vol] 1.08 mg/dL Normal 0.70-1.20 [facility] Comment on above: Order Comment: CC: C MP CBCD TO DR RODRIGUEZ Performed By: #### L 100.0100, L500.4050 ####[facility] [address] [place], [address] ECRCL 44.99 ml/min Low 50-250 [facility] Comment on above: Order Comment: CC: C MP CBCD TO DR RODRIGUEZ Performed By: #### L 100.0100, L500.4050 ####[facility] [address] [place], [address] GAP 13 Normal 5-15 [facility] Comment on above: Order Comment: CC: C MP CBCD TO DR RODRIGUEZ Performed By: #### L 100.0100, L500.4050 ####[facility] [address] [place], [address] GFR/1.73 sq M.predicted among non-blacks MDRD (S/P/Bld) [Vol rate/Area] 52 mL/min/{1.73_m2} Low >60 [facility] Comment on above: Order Comment: CC: C MP CBCD TO DR RODRIGUEZ Result Comment: mL/m in/1.73m2 CKD-EPI Creatinine Equation (2020) Performed By: #### L 100.0100, L500.4050 ####[facility] [address] [place], [address] Globulin (S) [Mass/Vol] 2.9 g/dL Normal 2.2-4.2 [facility] Comment on above: Order Comment: CC: C MP CBCD TO DR RODRIGUEZ Performed By: #### L 100.0100, L500.4050 ####[facility] [facility] [address] [place], [address] Glucose [Mass/Vol] 129 mg/dL High 70-99 [facility] Comment on above: Order Comment: CC: C MP CBCD TO DR RODRIGUEZ Performed By: #### L 100.0100, L500.4050 ####[facility] [address] [place], [address] Potassium [Moles/Vol] 4.1 mmol/L Normal 3.3-5.1 [facility] Comment on above: Order Comment: CC: C MP CBCD TO DR RODRIGUEZ Performed By: #### L 100.0100, L500.4050 ####[facility] [address] [place], [address] Sodium [Moles/Vol] 136 mmol/L Normal 133-145 [facility] Comment on above: Order Comment: CC: C MP CBCD TO DR RODRIGUEZ Performed By: #### L 100.0100, L500.4050 ####[facility] [address] [place], [address] T PROT 6.9 g/dL Normal 5.9-8.4 [facility] Comment on above: Order Comment: CC: C MP CBCD TO DR RODRIGUEZ Performed By: #### L 100.0100, L500.4050 ####[facility] [address] [place], [address] Urea nitrogen [Mass/Vol] 15 mg/dL Normal 4-19 [facility] Comment on above: Order Comment: CC: C MP CBCD TO DR RODRIGUEZ Performed By: #### L 100.0100, L500.4050 ####[facility] [address] [place], [address] Eosinophil percentageOrdered By: Carolyn Ruvalcaba on 10-11-2024 Eosinophils/100 WBC (Bld) 1.1 % 0-5 [facility] Erythrocyte distribution wid th ratioOrdered By: Carolyn Ruvalcaba on 10-11-2024 Erythrocyte distribution width (RBC) [Ratio] 16.2 % High 11.6-14.6 [facility] Erythrocyte distribution wid th standard deviationOrdered By: Carolyn Ruvalcaba on 10-11-2024 Erythrocyte distribution width (RBC) [Ratio] 65.8 fl High 35.1-43.9 [facility] Glomerular filtration rate ( GFR) estimation/1.73 sq m using serum, plasma, or whole bOrdered By: Carolyn Ruvalcaba on 10-11-2024 GFR/1.73 sq M.predicted among non-blacks MDRD (S/P/Bld) [Vol rate/Area] 52 mL/min/{1.73_m2} Low >60 [facility] Comment on above: mL/min/1.73m2 CKD-EP I Creatinine Equation (2020) Hematocrit Auto (Bld) [Volum e fraction]Ordered By: [facility] on 10-11-2024 Hematocrit (Bld) [Volume fraction] 36.1 % Low 37-47 [facility] Hemoglobin measurementOrdere d By: [facility] 10-11-2024 Hemoglobin (Bld) [Mass/Vol] 12.1 g/dL 12.0-15.0 [facility] Immature granulocytes/100 WB C Auto (Bld)Ordered By: [facility] 10-11-2024 Immature granulocytes/100 WBC (Bld) 0.500 % 0.0-0.9 [facility] Comment on above: IG% - Immature Granu locytes (promyelocytes, myelocytes and metamyelocytes) > 1% indicates that a LEFT SHIFT is Present. Laboratory - Chemistry and C hemistry - challengeOrdered By: [facility] on 10-11-2024 AST [Catalytic activity/Vol] 22 U/L <32 [facility] Laboratory - Hematology and Cell countsOrdered By: Carolyn Peg on 10-11-2024 Anisocytosis Ql (Bld) 1+ [facility] MCV (mean corpuscular volume ) determinationOrdered By: [facility] 10-11-2024 MCV (RBC) [Entitic vol] 110.7 fL High 81-99 [facility] MRSA screenOrdered By: Az Rodriguez on 10-11-2024 MRSA DNA JANY+probe Ql (Unsp spec) [facility] Mean corpuscular hemoglobin (MCH) determinationOrdered By: Carolyn Ruvalcaba on 10-11-2024 MCH (RBC) [Entitic mass] 37.1 pg High 27.0-32.0 [facility] Mean corpuscular hemoglobin concentration (MCHC) determinationOrdered By: Carolyn Ruvalcaba on 10-11-2024 MCHC (RBC) [Mass/Vol] 33.5 g/dL 32-36 [facility] Mean platelet volume determi nationOrdered By: Carolyn Ruvalcaba on 10-11-2024 Platelet mean volume (Bld) [Entitic vol] 10.3 fL 6.2-12.0 [facility] Monocyte percentageOrdered B y: Carolyn Ruvalcaba on 10-11-2024 Monocytes/100 WBC (Bld) 10.3 % High 0-10 [facility] Neutrophil percentageOrdered By: Carolyn Ruvalcaba on 10-11-2024 Neutrophils/100 WBC (Bld) 57.3 % 47-70 [facility] Nucleated red blood cell per centageOrdered By: Carolyn Ruvalcaba on 10-11-2024 Nucleated RBC/100 WBC (Bld) [Ratio] 0 % 0-5 [facility] Oncology Visit Reporton 09-20 Oncology Visit Report Normal [facility] Platelet countOrdered By: Ty ra Ruvalcaba on 10-11-2024 Platelets (Bld) [#/Vol] 244 10*3/uL 150-450 [facility] Platelet estimateOrdered By: Carolyn Ruvalcaba on 10-11-2024 Platelets LM Ql (Bld) ADEQUATE ADEQ [facility] Potassium measurement (mass/ volume)Ordered By: Carolyn Ruvalcaba on 10-11-2024 Potassium (Unsp spec) [Mass/Vol] 4.1 mmol/L 3.3-5.1 [facility] RBC Auto (Bld) [#/Vol]Ordere d By: Carolyn Ruvalcaba on 10-11-2024 RBC (Bld) [#/Vol] 3.26 10*6/uL Low 4.2-5.4 [facility] Serum creatinine measurement (mass/volume)Ordered By: Carolyn Ruvalcaba on 10-11-2024 Creatinine [Mass/Vol] 1.08 mg/dL 0.70-1.20 [facility] Serum globulin measurementOr dered By: Carolyn Ruvalcaba on 10-11-2024 Globulin (S) [Mass/Vol] 2.9 g/dL 2.2-4.2 [facility] Serum glucose measurement (m ass/volume)Ordered By: Carolyn Ruvalcaba on 10-11-2024 Glucose [Mass/Vol] 129 mg/dL High 70-99 [facility] Serum or plasma alanine bey otransferase (ALT) measurementOrdered By: Carolyn Ruvalcaba on 10-11-2024 ALT [Catalytic activity/Vol] 14 U/L <35 [facility] Serum or plasma albumin niels urement (mass/volume)Ordered By: Carolyn Ruvalcaba on 10-11-2024 Albumin [Mass/Vol] 4.0 g/dL 3.4-4.8 [facility] Serum or plasma albumin/glob ulin mass ratioOrdered By: Carolyn Ruvalcaba on 10-11-2024 Albumin/Globulin [Mass ratio] 1.4 {ratio} 0.9-2.4 [facility] Serum or plasma alkaline victor hugo sphatase measurementOrdered By: Carolyn Ruvalcaba 10-11-2024 ALP [Catalytic activity/Vol] 82 U/L 35-104 [facility] Serum or plasma calcium niels urement (mass/volume)Ordered By: Carolyn Ruvalcaba 10-11-2024 Calcium [Mass/Vol] 9.3 mg/dL 7.6-11.0 [facility] Serum or plasma urea nitroge n measurement (mass/volume)Ordered By: Carolyn Ruvalcaba 10-11-2024 Urea nitrogen [Mass/Vol] 15 mg/dL 4-19 [facility] Sodium levelOrdered By: Carolyn Ruvalcaba 10-11-2024 Sodium [Moles/Vol] 136 mmol/L 133-145 [facility] Total proteinOrdered By: Nayan Ruvalcaba on 10-11-2024 Protein [Mass/Vol] 6.9 g/dL 5.9-8.4 [facility] White blood cell (WBC) count Ordered By: Carolyn Ruvalcaba on 10-11-2024 WBC (Bld) [#/Vol] 3.7 10*3/uL Low 4.4-11.0 [facility] MR/PAT.ANEon 10-05-2024 MR/PAT.ANE Normal [facility] Cardiology Visit Reporton Cardiology Visit Report Normal [facility] Electrocardiogram reportOrde red By: Omero Armas on 08-03-20[address] [facility] Cardiovascular Services [address] [place] [address] 12 Lead EKG 08/01/24 1400 MR#: [id number] Acct: [id number] Name: BERNICE HASSAN Rep #:[id number] : 1945 79 From: Omero betancur MD Attending Dr: Dr. Dago Emery MD Status: REG CLI Ordering Dr: Dago Emery MD Date: Location: [facility] Sex: F C Admitted: Test Reason [...] effect Abnormal ECG Confirmed by Omero Armas ([id number]), society editor BONY SANCHEZ ([id number]) on 08/03/2024 10:09:09 AM Referred By: Dago Emery Confirmed By: Omero Armas 08/03/24 1009 Date _ Omero Armas MD CC: Dr. Dago Emery MD ~ Signed [facility] Other Phone: MRSA/SAID NASAL SCREENon MRSA+SAID SCRN Reason for Exam: PRE OP MRSA MRSA Negative S. AUREUS S. aureus Negative Normal [facility] Comment on above: Performed By: #### M 100.651, L501.1800 ####[facility] [address] [place], [address] 12 Lead EKGon 08-01-2024 12 Lead EKG Normal [facility] Extremity Lower without Cont raon 08-01-2024 Extremity Lower without Contra Normal [facility] MR/PAT.ANEon 08-01-2024 MR/PAT.ANE Normal [facility] Activated partial thrombopla stin time (aPTT) in platelet poor plasma by coagulation aOrdered By: Dago Emery on 07-31-2024 aPTT Coag (PPP) [Time] 26.1 s 24.1-36.2 [facility] Albumin, Serumon 07-31-2024 Albumin [Mass/Vol] 3.9 g/dL Normal 3.4-4.8 [facility] Comment on above: Performed By: #### M 100.651, L501.1800 ####[facility] [address] [place], [address] Bilirubin, totalOrdered By: Dago Emery on 07-31-2024 Bilirubin [Mass/Vol] 0.42 mg/dL 0.00-1.30 [facility] Comprehensive Metabolic Prof ilon 07-31-2024 Albumin [Mass/Vol] 4.0 g/dL Normal 3.4-4.8 [facility] Comment on above: Performed By: #### L 300.4310, L500.4050, L300.3900, L506.1001 ####[facility] [address] [place], [address] Albumin/Globulin [Mass ratio] 1.6 {ratio} Normal 0.9-2.4 [facility] Comment on above: Performed By: #### L 300.4310, L500.4050, L300.3900, L506.1001 ####[facility] [address] [place], [address] ALK PHOS 92 U/L Normal 35-104 [facility] Comment on above: Performed By: #### L 300.4310, L500.4050, L300.3900, L506.1001 ####[facility] [address] [place], [address] ALT [Catalytic activity/Vol] 14 U/L Normal <=34 [facility] Comment on above: Performed By: #### L 300.4310, L500.4050, L300.3900, L506.1001 ####[facility] [address] [place], [address] AST [Catalytic activity/Vol] 22 U/L Normal <=31 [facility] Comment on above: Performed By: #### L 300.4310, L500.4050, L300.3900, L506.1001 ####[facility] [address] [place], [address] Bilirubin [Mass/Vol] 0.42 mg/dL Normal 0.00-1.30 [facility] Comment on above: Performed By: #### L 300.4310, L500.4050, L300.3900, L506.1001 ####[facility] [address] [place], [address] BUN/CRE 19.1 RATIO Normal 10-20 [facility] Comment on above: Performed By: #### L 300.4310, L500.4050, L300.3900, L506.1001 ####[facility] [address] [place], [address] Calcium [Mass/Vol] 9.5 mg/dL Normal 7.6-11.0 [facility] Comment on above: Performed By: #### L 300.4310, L500.4050, L300.3900, L506.1001 ####[facility] [address] [place], [address] Chloride [Moles/Vol] 105 mmol/L Normal 98-108 [facility] Comment on above: Performed By: #### L 300.4310, L500.4050, L300.3900, L506.1001 ####[facility] [address] [place], [address] CO2 [Moles/Vol] 23.0 mmol/L Normal 21.0-32.0 [facility] Comment on above: Performed By: #### L 300.4310, L500.4050, L300.3900, L506.1001 ####[facility] [address] [place], [address] Creatinine [Mass/Vol] 0.97 mg/dL Normal 0.70-1.20 [facility] Comment on above: Performed By: #### L 300.4310, L500.4050, L300.3900, L506.1001 ####[facility] [address] [place], [address] GAP 12 Normal 5-15 [facility] Comment on above: Performed By: #### L 300.4310, L500.4050, L300.3900, L506.1001 ####[facility] [address] [place], [address] GFR/1.73 sq M.predicted among non-blacks MDRD (S/P/Bld) [Vol rate/Area] 59 mL/min/{1.73_m2} Low >60 [facility] Comment on above: Result Comment: mL/m in/1.73m2 CKD-EPI Creatinine Equation (2020) Performed By: #### L 300.4310, L500.4050, L300.3900, L506.1001 ####[facility] [address] [place], [address] Globulin (S) [Mass/Vol] 2.4 g/dL Normal 2.2-4.2 [facility] Comment on above: Performed By: #### L 300.4310, L500.4050, L300.3900, L506.1001 ####[facility] [address] [place], [address] Glucose [Mass/Vol] 127 mg/dL High 70-99 [facility] Comment on above: Performed By: #### L 300.4310, L500.4050, L300.3900, L506.1001 ####[facility] [address] [place], [address] Potassium [Moles/Vol] 4.5 mmol/L Normal 3.3-5.1 [facility] Comment on above: Performed By: #### L 300.4310, L500.4050, L300.3900, L506.1001 ####[facility] [address] [place], [address] Sodium [Moles/Vol] 139 mmol/L Normal 133-145 [facility] Comment on above: Performed By: #### L 300.4310, L500.4050, L300.3900, L506.1001 ####[facility] [address] [place], [address] T PROT 6.4 g/dL Normal 5.9-8.4 [facility] Comment on above: Performed By: #### L 300.4310, L500.4050, L300.3900, L506.1001 ####[facility] [address] [place], [address] Urea nitrogen [Mass/Vol] 19 mg/dL Normal 4-19 [facility] Comment on above: Performed By: #### L 300.4310, L500.4050, L300.3900, L506.1001 ####[facility] [address] [place], [address] International normalized rat io (INR) calculationOrdered By: Dago Emery on 07-31-2024 INR Coag (Bld) [Relative time] 0.9 {INR} [facility] Laboratory - Chemistry and C hemistry - challengeOrdered By: Dago Emery on 07-31-2024 AST [Catalytic activity/Vol] 22 U/L <32 [facility] MRSA screenOrdered By: Az Rodriguez on 07-31-2024 MRSA DNA JANY+probe Ql (Unsp spec) [facility] Magnesiumon 07-31-2024 Magnesium [Mass/Vol] 2.3 mg/dL High 1.5-2.2 [facility] Comment on above: Performed By: #### L 501.5200, L501.9520 ####[facility] [address] [place], [address] Magnesium measurement (mass/ volume)Ordered By: Jg Pandey on 07-31-2024 Magnesium (Unsp spec) [Mass/Vol] 2.3 mg/dL High 1.5-2.2 [facility] Partial Thromboplast Timeon 07-31-2024 aPTT Coag (Bld) [Time] 26.1 s Normal 24.1-36.2 [facility] Comment on above: Performed By: #### L 300.4310, L500.4050, L300.3900, L506.1001 ####[facility] [address] [place], [address] Prothrombin Time w/INRon INR Coag (PPP) [Relative time] 0.9 {INR} Normal [facility] Comment on above: Performed By: #### L 300.4310, L500.4050, L300.3900, L506.1001 ####[facility] [address] [place], [address] PT Coag (PPP) [Time] 12.6 s Normal 11.7-14.9 [facility] Comment on above: Performed By: #### L 300.4310, L500.4050, L300.3900, L506.1001 ####[facility] [address] [place], [address] Prothrombin timeOrdered By: Dago Rupert on 07-31-2024 PT Coag (PPP) [Time] 12.6 s 11.7-14.9 [facility] Serum globulin measurementOr dered By: Dago Emery on 07-31-2024 Globulin (S) [Mass/Vol] 2.4 g/dL 2.2-4.2 [facility] Serum or plasma alanine bey otransferase (ALT) measurementOrdered By: Daog Emery on 07-31-2024 ALT [Catalytic activity/Vol] 14 U/L <35 [facility] Serum or plasma albumin niels urement (mass/volume)Ordered By: Dago Emery on 07-31-2024 Albumin [Mass/Vol] 4.0 g/dL 3.4-4.8 [facility] Serum or plasma albumin/glob ulin mass ratioOrdered By: Dago Emery 07-31-2024 Albumin/Globulin [Mass ratio] 1.6 {ratio} 0.9-2.4 [facility] Serum or plasma alkaline victor hugo sphatase measurementOrdered By: Dago Emery on 07-31-2024 ALP [Catalytic activity/Vol] 92 U/L 35-104 [facility] TSH DL <= 0.005 mIU/L QnOrde red By: Jg Pandey on 07-31-2024 TSH Qn 1.470 uIU/mL 0.300-4.20 0 [facility] Thyroid Stim Hormone (TSH)on 07-31-2024 TSH 1.470 uIU/mL Normal 0.300-4.20 0 [facility] Comment on above: Performed By: #### L 501.5200, L501.9520 ####[facility] [address] [place], [place], [address] Total proteinOrdered By: Dago Emery on 07-31-2024 Protein [Mass/Vol] 6.4 g/dL 5.9-8.4 [facility] Vitamin D,25 Hydroxyon 07-31 Vitamin D 25-OH 18.9 ng/mL Low 30-100 [facility] Comment on above: Result Comment: [place] min D StatusDeficiency: <20 ng/mL (50nmol/L)Insufficiency: 20-30 ng/mL (50-75 nmol/L)Sufficiency: 30-100 ng/mL (75-250 nmol/L)Toxicity: >100 ng/mL (>250 nmol/L) Performed By: #### L 300.4310, L500.4050, L300.3900, L506.1001 ####[facility] [address] [place], [address] Absolute lymphocyte countOrd ered By: [facility] on 07-10-2024 Lymphocytes Auto (Unsp spec) [#/Vol] 1.19 10*3/uL 0.83-4.51 [facility] Absolute neutrophil countOrd ered By: [facility] on 07-10-2024 Neutrophils (Bld) [#/Vol] 3.7 10*3/uL 2.0-7.7 [facility] Anion gap in Serum or Plasma Ordered By: Umang Pate on 07-10-2024 Anion gap [Moles/Vol] 10 mmol/L 5-15 [facility] Automated lymphocyte count a s percentage of total leukocytesOrdered By: [facility] on 07-10-2024 Lymphocytes/100 WBC Auto (Unsp spec) 22.0 % 19-41 [facility] BUN/creatinine ratioOrdered By: [facility] Herlinda on 07-10-2024 Urea nitrogen/Creatinine [Mass ratio] 20.2 mg/mg High 10-20 [facility] Basophil percentageOrdered B y: [facility] on 07-10-2024 Basophils/100 WBC (Bld) 0.4 % 0-1 [facility] Bilirubin, totalOrdered By: [facility] on 07-10-2024 Bilirubin [Mass/Vol] 0.40 mg/dL 0.00-1.30 [facility] CBC W/Diff, Automatedon 06-21 Absolute Lymph 1.19 X10 3/uL Normal 0.83-4.51 [facility] Comment on above: Performed By: #### L 100.0100, L500.4050 ####[facility] [address] [place], [address] Absolute Neut 3.7 X10 3/uL Normal 2.0-7.7 [facility] Comment on above: Performed By: #### L 100.0100, L500.4050 ####[facility] [address] [place], [address] Basophils/100 WBC (Bld) 0.4 % Normal 0-1 [facility] Comment on above: Performed By: #### L 100.0100, L500.4050 ####[facility] [address] [place], [address] Eosinophils/100 WBC (Bld) 1.3 % Normal 0-5 [facility] Comment on above: Performed By: #### L 100.0100, L500.4050 ####[facility] [address] [place], [address] Erythrocyte distribution width (RBC) [Ratio] 14.9 % High 11.6-14.6 [facility] Comment on above: Performed By: #### L 100.0100, L500.4050 ####[facility] [address] [place], [address] Hematocrit (Bld) [Volume fraction] 38.9 % Normal 37-47 [facility] Comment on above: Performed By: #### L 100.0100, L500.4050 ####[facility] [address] [place], [address] Hemoglobin (Bld) [Mass/Vol] 13.0 g/dL Normal 12.0-15.0 [facility] Comment on above: Performed By: #### L 100.0100, L500.4050 ####[facility] [address] [place], [address] IG% 0.400 Normal 0.0-0.9 [facility] Comment on above: Result Comment: IG% - Immature Granulocytes (promyelocytes, myelocytes andmetamyelocytes) > 1% indicates that a LEFT SHIFT is Present. Performed By: #### L 100.0100, L500.4050 ####[facility] [address] [place], [address] Lymphocytes/100 WBC (Bld) 22.0 % Normal 19-41 [facility] Comment on above: Performed By: #### L 100.0100, L500.4050 ####[facility] [address] [place], [address] MCH (RBC) [Entitic mass] 36.6 pg High 27.0-32.0 [facility] Comment on above: Performed By: #### L 100.0100, L500.4050 ####[facility] [address] [place], [address] MCHC (RBC) [Mass/Vol] 33.4 g/dL Normal 32-36 [facility] Comment on above: Performed By: #### L 100.0100, L500.4050 ####[facility] [address] [place], [address] MCV (RBC) [Entitic vol] 109.6 fL High 81-99 [facility] Comment on above: Performed By: #### L 100.0100, L500.4050 ####[facility] [address] [place], [address] Monocytes/100 WBC (Bld) 8.5 % Normal 0-10 [facility] Comment on above: Performed By: #### L 100.0100, L500.4050 ####[facility] [address] [place], [address] Neutrophils/100 WBC (Bld) 67.4 % Normal 47-70 [facility] Comment on above: Performed By: #### L 100.0100, L500.4050 ####[facility] [address] [place], [address] Nucleated RBC (Bld) [#/Vol] 0 10*3/uL Normal 0-5 [facility] Comment on above: Performed By: #### L 100.0100, L500.4050 ####[facility] [address] [place], [address] Platelet mean volume (Bld) [Entitic vol] 10.9 fL Normal 6.2-12.0 [facility] Comment on above: Performed By: #### L 100.0100, L500.4050 ####[facility] [address] [place], [address] Platelets (Bld) [#/Vol] 252 10*3/uL Normal 150-450 [facility] Comment on above: Performed By: #### L 100.0100, L500.4050 ####[facility] [address] [place], [address] RBC (Bld) [#/Vol] 3.55 10*6/uL Low 4.2-5.4 [facility] Comment on above: Performed By: #### L 100.0100, L500.4050 ####[facility] [address] [place], [address] RDW SD 60.0 fl High 35.1-43.9 [facility] Comment on above: Performed By: #### L 100.0100, L500.4050 ####[facility] [address] [place], [address] WBC (Bld) [#/Vol] 5.4 10*3/uL Normal 4.4-11.0 [facility] Comment on above: Performed By: #### L 100.0100, L500.4050 ####[facility] [address] [place], [address] Carbon dioxide, total [Moles /volume] in Central venous bloodOrdered By: Umang Pate on 07-10-2024 CO2 [Moles/Vol] 23.6 mmol/L 21.0-32.0 [facility] Chloride assayOrdered By: Lara Pate on 07-10-2024 Chloride [Moles/Vol] 105 mmol/L 98-108 [facility] Comprehensive Metabolic Prof ilon 07-10-2024 Albumin [Mass/Vol] 4.0 g/dL Normal 3.4-4.8 [facility] Comment on above: Performed By: #### L 100.0100, L500.4050 ####[facility] [address] [place], [address] Albumin/Globulin [Mass ratio] 1.4 {ratio} Normal 0.9-2.4 [facility] Comment on above: Performed By: #### L 100.0100, L500.4050 ####[facility] [address] [place], [address] ALK PHOS 90 U/L Normal 35-104 [facility] Comment on above: Performed By: #### L 100.0100, L500.4050 ####[facility] [address] [place], [address] ALT [Catalytic activity/Vol] 14 U/L Normal <=34 [facility] Comment on above: Performed By: #### L 100.0100, L500.4050 ####[facility] [address] [place], [address] AST [Catalytic activity/Vol] 22 U/L Normal <=31 [facility] Comment on above: Performed By: #### L 100.0100, L500.4050 ####[facility] [address] [place], [address] Bilirubin [Mass/Vol] 0.40 mg/dL Normal 0.00-1.30 [facility] Comment on above: Performed By: #### L 100.0100, L500.4050 ####[facility] [address] [place], [address] BUN/CRE 20.2 RATIO High 10-20 [facility] Comment on above: Performed By: #### L 100.0100, L500.4050 ####[facility] [address] [place], [address] Calcium [Mass/Vol] 9.3 mg/dL Normal 7.6-11.0 [facility] Comment on above: Performed By: #### L 100.0100, L500.4050 ####[facility] [address] [place], [address] Chloride [Moles/Vol] 105 mmol/L Normal 98-108 [facility] Comment on above: Performed By: #### L 100.0100, L500.4050 ####[facility] [address] [place], [address] CO2 [Moles/Vol] 23.6 mmol/L Normal 21.0-32.0 [facility] Comment on above: Performed By: #### L 100.0100, L500.4050 ####[facility] [address] [place], [address] Creatinine [Mass/Vol] 0.97 mg/dL Normal 0.70-1.20 [facility] Comment on above: Performed By: #### L 100.0100, L500.4050 ####[facility] [address] [place], [address] ECRCL 50.94 ml/min Normal 50-250 [facility] Comment on above: Performed By: #### L 100.0100, L500.4050 ####[facility] [address] [place], [address] GAP 10 Normal 5-15 [facility] Comment on above: Performed By: #### L 100.0100, L500.4050 ####[facility] [address] [place], [address] GFR/1.73 sq M.predicted among non-blacks MDRD (S/P/Bld) [Vol rate/Area] 59 mL/min/{1.73_m2} Low >60 [facility] Comment on above: Result Comment: mL/m in/1.73m2 CKD-EPI Creatinine Equation (2020) Performed By: #### L 100.0100, L500.4050 ####[facility] [address] [place], [address] Globulin (S) [Mass/Vol] 2.9 g/dL Normal 2.2-4.2 [facility] Comment on above: Performed By: #### L 100.0100, L500.4050 ####[facility] [address] [place], [address] Glucose [Mass/Vol] 112 mg/dL High 70-99 [facility] Comment on above: Performed By: #### L 100.0100, L500.4050 ####[facility] [address] [place], [address] Potassium [Moles/Vol] 4.0 mmol/L Normal 3.3-5.1 [facility] Comment on above: Performed By: #### L 100.0100, L500.4050 ####[facility] [address] [place], [address] Sodium [Moles/Vol] 139 mmol/L Normal 133-145 [facility] Comment on above: Performed By: #### L 100.0100, L500.4050 ####[facility] [address] [place], [address] T PROT 6.9 g/dL Normal 5.9-8.4 [facility] Comment on above: Performed By: #### L 100.0100, L500.4050 ####[facility] [address] [place], [address] Urea nitrogen [Mass/Vol] 20 mg/dL High 4-19 [facility] Comment on above: Performed By: #### L 100.0100, L500.4050 ####[facility] [address] [place], [address] Eosinophil percentageOrdered By: Umang Pate on 07-10-2024 Eosinophils/100 WBC (Bld) 1.3 % 0-5 [facility] Erythrocyte distribution wid th ratioOrdered By: [facility] on 07-10-2024 Erythrocyte distribution width (RBC) [Ratio] 14.9 % High 11.6-14.6 [facility] Erythrocyte distribution wid th standard deviationOrdered By: Umang Pate on 07-10-2024 Erythrocyte distribution width (RBC) [Ratio] 60.0 fl High 35.1-43.9 [facility] Glomerular filtration rate ( GFR) estimation/1.73 sq m using serum, plasma, or whole bOrdered By: Umang Pate on 07-10-2024 GFR/1.73 sq M.predicted among non-blacks MDRD (S/P/Bld) [Vol rate/Area] 59 mL/min/{1.73_m2} Low >60 [facility] Comment on above: mL/min/1.73m2 CKD-EP I Creatinine Equation (2020) Hematocrit Auto (Bld) [Volum e fraction]Ordered By: Umang Pate on 07-10-2024 Hematocrit (Bld) [Volume fraction] 38.9 % 37-47 [facility] Hemoglobin measurementOrdere d By: Umang Pate on 07-10-2024 Hemoglobin (Bld) [Mass/Vol] 13.0 g/dL 12.0-15.0 [facility] Immature granulocytes/100 WB C Auto (Bld)Ordered By: Umang Pate on 07-10-2024 Immature granulocytes/100 WBC (Bld) 0.400 % 0.0-0.9 [facility] Comment on above: IG% - Immature Granu locytes (promyelocytes, myelocytes and metamyelocytes) > 1% indicates that a LEFT SHIFT is Present. Laboratory - Chemistry and C hemistry - challengeOrdered By: Umang Pate on 07-10-2024 AST [Catalytic activity/Vol] 22 U/L <32 [facility] MCV (mean corpuscular volume ) determinationOrdered By: Umang Pate on 07-10-2024 MCV (RBC) [Entitic vol] 109.6 fL High 81-99 [facility] Mean corpuscular hemoglobin (MCH) determinationOrdered By: Umang Pate on 07-10-2024 MCH (RBC) [Entitic mass] 36.6 pg High 27.0-32.0 [facility] Mean corpuscular hemoglobin concentration (MCHC) determinationOrdered By: Umang Pate on 07-10-2024 MCHC (RBC) [Mass/Vol] 33.4 g/dL 32-36 [facility] Mean platelet volume determi nationOrdered By: Umang Pate on 07-10-2024 Platelet mean volume (Bld) [Entitic vol] 10.9 fL 6.2-12.0 [facility] Monocyte percentageOrdered B y: Umang Pate on 07-10-2024 Monocytes/100 WBC (Bld) 8.5 % 0-10 [facility] Neutrophil percentageOrdered By: Umang Pate on 07-10-2024 Neutrophils/100 WBC (Bld) 67.4 % 47-70 [facility] Nucleated red blood cell per centageOrdered By: Umang Pate on 07-10-2024 Nucleated RBC/100 WBC (Bld) [Ratio] 0 % 0-5 [facility] Oncology Visit Reporton 06-21 Oncology Visit Report Normal [facility] Platelet countOrdered By: Lara Pate on 07-10-2024 Platelets (Bld) [#/Vol] 252 10*3/uL 150-450 [facility] Potassium measurement (mass/ volume)Ordered By: Umang Pate on 07-10-2024 Potassium (Unsp spec) [Mass/Vol] 4.0 mmol/L 3.3-5.1 [facility] RBC Auto (Bld) [#/Vol]Ordere d By: Umang Pate on 07-10-2024 RBC (Bld) [#/Vol] 3.55 10*6/uL Low 4.2-5.4 [facility] Serum creatinine measurement (mass/volume)Ordered By: Umang Pate on 07-10-2024 Creatinine [Mass/Vol] 0.97 mg/dL 0.70-1.20 [facility] Serum globulin measurementOr dered By: Umang Pate on 07-10-2024 Globulin (S) [Mass/Vol] 2.9 g/dL 2.2-4.2 [facility] Serum glucose measurement (m ass/volume)Ordered By: Umang Pate on 07-10-2024 Glucose [Mass/Vol] 112 mg/dL High 70-99 [facility] Serum or plasma alanine bey otransferase (ALT) measurementOrdered By: Umang Pate on 07-10-2024 ALT [Catalytic activity/Vol] 14 U/L <35 [facility] Serum or plasma albumin niels urement (mass/volume)Ordered By: Umang Pate on 07-10-2024 Albumin [Mass/Vol] 4.0 g/dL 3.4-4.8 [facility] Serum or plasma albumin/glob ulin mass ratioOrdered By: Umang Pate on 07-10-2024 Albumin/Globulin [Mass ratio] 1.4 {ratio} 0.9-2.4 [facility] Serum or plasma alkaline victor hugo sphatase measurementOrdered By: Umang Pate on 07-10-2024 ALP [Catalytic activity/Vol] 90 U/L 35-104 [facility] Serum or plasma calcium niels urement (mass/volume)Ordered By: Umang Pate on 07-10-2024 Calcium [Mass/Vol] 9.3 mg/dL 7.6-11.0 [facility] Serum or plasma urea nitroge n measurement (mass/volume)Ordered By: Umang Pate on 07-10-2024 Urea nitrogen [Mass/Vol] 20 mg/dL High 4-19 [facility] Sodium levelOrdered By: Aram bentley Yonathan on 07-10-2024 Sodium [Moles/Vol] 139 mmol/L 133-145 [facility] Total proteinOrdered By: Seng Pate on 07-10-2024 Protein [Mass/Vol] 6.9 g/dL 5.9-8.4 [facility] White blood cell (WBC) count Ordered By: Umang Herlinda on 07-10-2024 WBC (Bld) [#/Vol] 5.4 10*3/uL 4.4-11.0 [facility] CBC W/Diff, Automatedon 12-0 Absolute Lymph 1.45 X10 3/uL Normal 0.83-4.51 [facility] Comment on above: Performed By: #### L 100.0100, L500.4050 ####[facility] [address] [place], [address] Absolute Neut 5.9 X10 3/uL Normal 2.0-7.7 [facility] Comment on above: Performed By: #### L 100.0100, L500.4050 ####[facility] [address] [place], [address] Basophils/100 WBC (Bld) 0.1 % Normal 0-1 [facility] Comment on above: Performed By: #### L 100.0100, L500.4050 ####[facility] [address] [place], [address] Eosinophils/100 WBC (Bld) 0.9 % Normal 0-5 [facility] Comment on above: Performed By: #### L 100.0100, L500.4050 ####[facility] [address] [place], [address] Erythrocyte distribution width (RBC) [Ratio] 14.6 % Normal 11.6-14.6 [facility] Comment on above: Performed By: #### L 100.0100, L500.4050 ####[facility] [address] [place], [address] Hematocrit (Bld) [Volume fraction] 40.3 % Normal 37-47 [facility] Comment on above: Performed By: #### L 100.0100, L500.4050 ####[facility] [address] [place], [address] Hemoglobin (Bld) [Mass/Vol] 13.3 g/dL Normal 12.0-15.0 [facility] Comment on above: Performed By: #### L 100.0100, L500.4050 ####[facility] [address] [place], [address] IG% 0.500 Normal 0.0-0.9 [facility] Comment on above: Result Comment: IG% - Immature Granulocytes (promyelocytes, myelocytes andmetamyelocytes) > 1% indicates that a LEFT SHIFT is Present. Performed By: #### L 100.0100, L500.4050 ####[facility] [address] [place], [address] Lymphocytes/100 WBC (Bld) 17.7 % Low 19-41 [facility] Comment on above: Performed By: #### L 100.0100, L500.4050 ####[facility] [address] [place], [address] MCH (RBC) [Entitic mass] 36.2 pg High 27.0-32.0 [facility] Comment on above: Performed By: #### L 100.0100, L500.4050 ####[facility] [address] [place], [address] MCHC (RBC) [Mass/Vol] 33.0 g/dL Normal 32-36 [facility] Comment on above: Performed By: #### L 100.0100, L500.4050 ####[facility] [address] [place], [address] MCV (RBC) [Entitic vol] 109.8 fL High 81-99 [facility] Comment on above: Performed By: #### L 100.0100, L500.4050 ####[facility] [address] [place], [address] Monocytes/100 WBC (Bld) 8.1 % Normal 0-10 [facility] Comment on above: Performed By: #### L 100.0100, L500.4050 ####[facility] [address] [place], [address] Neutrophils/100 WBC (Bld) 72.7 % High 47-70 [facility] Comment on above: Performed By: #### L 100.0100, L500.4050 ####[facility] [address] [place], [address] Nucleated RBC (Bld) [#/Vol] 0 10*3/uL Normal 0-5 [facility] Comment on above: Performed By: #### L 100.0100, L500.4050 ####[facility] [address] [place], [address] Platelet mean volume (Bld) [Entitic vol] 10.6 fL Normal 6.2-12.0 [facility] Comment on above: Performed By: #### L 100.0100, L500.4050 ####[facility] [address] [place], [address] Platelets (Bld) [#/Vol] 300 10*3/uL Normal 150-450 [facility] Comment on above: Performed By: #### L 100.0100, L500.4050 ####[facility] [address] [place], [address] RBC (Bld) [#/Vol] 3.67 10*6/uL Low 4.2-5.4 [facility] Comment on above: Performed By: #### L 100.0100, L500.4050 ####[facility] [address] [place], [address] RDW SD 58.3 fl High 35.1-43.9 [facility] Comment on above: Performed By: #### L 100.0100, L500.4050 ####[facility] [address] [place], [address] WBC (Bld) [#/Vol] 8.2 10*3/uL Normal 4.4-11.0 [facility] Comment on above: Performed By: #### L 100.0100, L500.4050 ####[facility] [address] [place], [address] Comprehensive Metabolic Prof ilon 02-22-2024 Albumin [Mass/Vol] 3.4 g/dL Normal 3.2-5.0 [facility] Comment on above: Performed By: #### L 100.0100, L500.4050 ####[facility] [address] [place], [address] Albumin/Globulin [Mass ratio] 1.0 {ratio} Normal 0.9-2.4 [facility] Comment on above: Performed By: #### L 100.0100, L500.4050 ####[facility] [address] [place], [address] ALK P 85 U/L Normal 45-117 [facility] Comment on above: Performed By: #### L 100.0100, L500.4050 ####[facility] [address] [place], [address] ALT [Catalytic activity/Vol] 29 U/L Normal 13-56 [facility] Comment on above: Performed By: #### L 100.0100, L500.4050 ####[facility] [address] [place], [address] AST [Catalytic activity/Vol] 25 U/L Normal 15-37 [facility] Comment on above: Result Comment: Mode rate Hemolysis, Result may be falsely increased. Performed By: #### L 100.0100, L500.4050 ####[facility] [address] [place], [address] Bilirubin [Mass/Vol] 0.70 mg/dL Normal 0.20-1.00 [facility] Comment on above: Result Comment: For patients on eltrombopag therapy, use of Dimension [place] TBIL is not recommended. Performed By: #### L 100.0100, L500.4050 ####[facility] [address] [place], [address] BUN/CRE 22.5 RATIO High 10-20 [facility] Comment on above: Performed By: #### L 100.0100, L500.4050 ####[facility] [address] [place], [address] CA,Total 8.9 mg/dL Normal 8.5-10.1 [facility] Comment on above: Performed By: #### L 100.0100, L500.4050 ####[facility] [address] [place], [address] Chloride [Moles/Vol] 109 mmol/L High 98-107 [facility] Comment on above: Performed By: #### L 100.0100, L500.4050 ####[facility] [address] [place], [address] CO2 [Moles/Vol] 27.0 mmol/L Normal 21.0-32.0 [facility] Comment on above: Performed By: #### L 100.0100, L500.4050 ####[facility] [address] [place], [address] Creatinine [Mass/Vol] 0.94 mg/dL Normal 0.55-1.02 [facility] Comment on above: Result Comment: The validity of the calculated GFR GFRAA in patients over70 years has not been determined. Clinical correlation isessential. Performed By: #### L 100.0100, L500.4050 ####[facility] [address] [place], [address] ECRCL 52.57 ml/min Normal [facility] Comment on above: Performed By: #### L 100.0100, L500.4050 ####[facility] [address] [place], [address] EST GFR - AA 74 mL/min Normal >60 [facility] Comment on above: Result Comment: Afri can [place] GFR Calc Performed By: #### L 100.0100, L500.4050 ####[facility] [address] [place], [address] GAP 4 Low 5-15 [facility] Comment on above: Performed By: #### L 100.0100, L500.4050 ####[facility] [address] [place], [address] GFR/1.73 sq M.predicted among non-blacks MDRD (S/P/Bld) [Vol rate/Area] 61 mL/min/{1.73_m2} Normal >60 [facility] Comment on above: Result Comment: Non- GFR Calc Performed By: #### L 100.0100, L500.4050 ####[facility] [address] [place], [address] Globulin (S) [Mass/Vol] 3.5 g/dL Normal 2.2-4.2 [facility] Comment on above: Performed By: #### L 100.0100, L500.4050 ####[facility] [address] [place], [address] Glucose [Mass/Vol] 110 mg/dL High 74-106 [facility] Comment on above: Result Comment: Fast ing Glucose result from 100 to 125 mg/dLsuggests IMPAIRED HOMEOSTASIS per A.D.A. criteria. Performed By: #### L 100.0100, L500.4050 ####[facility] [address] [place], [address] Potassium [Moles/Vol] 4.2 mmol/L Normal 3.5-5.1 [facility] Comment on above: Result Comment: Mode rate Hemolysis, Result may be falsely increased. Performed By: #### L 100.0100, L500.4050 ####[facility] [address] [place], [address] Sodium [Moles/Vol] 140 mmol/L Normal 136-145 [facility] Comment on above: Performed By: #### L 100.0100, L500.4050 ####[facility] [address] [place], [address] T PROT 6.9 g/dL Normal 6.4-8.2 [facility] Comment on above: Performed By: #### L 100.0100, L500.4050 ####[facility] [address] [place], [address] Urea nitrogen [Mass/Vol] 21 mg/dL High 7-18 [facility] Comment on above: Performed By: #### L 100.0100, L500.4050 ####[facility] [address] [place], [address] Oncology Visit Reporton 0 Oncology Visit Report Normal [facility] CBC W/Diff, Automatedon 11- Absolute Lymph 1.16 X10 3/uL Normal 0.83-4.51 [facility] Comment on above: Performed By: #### L 501.9520, L500.4050, L506.1000, L100.0100 ####[facility] [address] [place], [address] Absolute Neut 3.3 X10 3/uL Normal 2.0-7.7 [facility] Comment on above: Performed By: #### L 501.9520, L500.4050, L506.1000, L100.0100 ####[facility] [address] [place], [address] Basophils/100 WBC (Bld) 0.4 % Normal 0-1 [facility] Comment on above: Performed By: #### L 501.9520, L500.4050, L506.1000, L100.0100 ####[facility] [address] [place], [address] Eosinophils/100 WBC (Bld) 1.0 % Normal 0-5 [facility] Comment on above: Performed By: #### L 501.9520, L500.4050, L506.1000, L100.0100 ####[facility] [address] [place], [address] Erythrocyte distribution width (RBC) [Ratio] 14.3 % Normal 11.6-14.6 [facility] Comment on above: Performed By: #### L 501.9520, L500.4050, L506.1000, L100.0100 ####[facility] [address] [place], [address] Hematocrit (Bld) [Volume fraction] 38.3 % Normal 37-47 [facility] Comment on above: Performed By: #### L 501.9520, L500.4050, L506.1000, L100.0100 ####[facility] [address] [place], [address] Hemoglobin (Bld) [Mass/Vol] 12.8 g/dL Normal 12.0-15.0 [facility] Comment on above: Performed By: #### L 501.9520, L500.4050, L506.1000, L100.0100 ####[facility] [address] [place], [address] IG% 0.400 Normal 0.0-0.9 [facility] Comment on above: Result Comment: IG% - Immature Granulocytes (promyelocytes, myelocytes andmetamyelocytes) > 1% indicates that a LEFT SHIFT is Present. Performed By: #### L 501.9520, L500.4050, L506.1000, L100.0100 ####[facility] [address] [place], [address] Lymphocytes/100 WBC (Bld) 22.9 % Normal 19-41 [facility] Comment on above: Performed By: #### L 501.9520, L500.4050, L506.1000, L100.0100 ####[facility] [address] [place], [address] MCH (RBC) [Entitic mass] 37.0 pg High 27.0-32.0 [facility] Comment on above: Performed By: #### L 501.9520, L500.4050, L506.1000, L100.0100 ####[facility] [address] [place], [address] MCHC (RBC) [Mass/Vol] 33.4 g/dL Normal 32-36 [facility] Comment on above: Performed By: #### L 501.9520, L500.4050, L506.1000, L100.0100 ####[facility] [address] [place], [address] MCV (RBC) [Entitic vol] 110.7 fL High 81-99 [facility] Comment on above: Performed By: #### L 501.9520, L500.4050, L506.1000, L100.0100 ####[facility] [address] [place], [address] Monocytes/100 WBC (Bld) 9.5 % Normal 0-10 [facility] Comment on above: Performed By: #### L 501.9520, L500.4050, L506.1000, L100.0100 ####[facility] [address] [place], [address] Neutrophils/100 WBC (Bld) 65.8 % Normal 47-70 [facility] Comment on above: Performed By: #### L 501.9520, L500.4050, L506.1000, L100.0100 ####[facility] [address] [place], [address] Nucleated RBC (Bld) [#/Vol] 0 10*3/uL Normal 0-5 [facility] Comment on above: Performed By: #### L 501.9520, L500.4050, L506.1000, L100.0100 ####[facility] [address] [place], [address] Platelet mean volume (Bld) [Entitic vol] 11.0 fL Normal 6.2-12.0 [facility] Comment on above: Performed By: #### L 501.9520, L500.4050, L506.1000, L100.0100 ####[facility] [address] [place], [address] Platelets (Bld) [#/Vol] 292 10*3/uL Normal 150-450 [facility] Comment on above: Performed By: #### L 501.9520, L500.4050, L506.1000, L100.0100 ####[facility] [address] [place], [address] RBC (Bld) [#/Vol] 3.46 10*6/uL Low 4.2-5.4 [facility] Comment on above: Performed By: #### L 501.9520, L500.4050, L506.1000, L100.0100 ####[facility] [address] [place], [address] RDW SD 57.3 fl High 35.1-43.9 [facility] Comment on above: Performed By: #### L 501.9520, L500.4050, L506.1000, L100.0100 ####[facility] [address] [place], [address] WBC (Bld) [#/Vol] 5.1 10*3/uL Normal 4.4-11.0 [facility] Comment on above: Performed By: #### L 501.9520, L500.4050, L506.1000, L100.0100 ####[facility] [address] [place], [address] Comprehensive Metabolic Prof [facility] 01-31-2024 Albumin [Mass/Vol] 3.5 g/dL Normal 3.2-5.0 [facility] Comment on above: Performed By: #### L 501.9520, L500.4050, L506.1000, L100.0100 ####[facility] [address] [place], [address] Albumin/Globulin [Mass ratio] 1.0 {ratio} Normal 0.9-2.4 [facility] Comment on above: Performed By: #### L 501.9520, L500.4050, L506.1000, L100.0100 ####[facility] [address] [place], [address] ALK P 96 U/L Normal 45-117 [facility] Comment on above: Performed By: #### L 501.9520, L500.4050, L506.1000, L100.0100 ####[facility] [address] [place], [address] ALT [Catalytic activity/Vol] 19 U/L Normal 13-56 [facility] Comment on above: Performed By: #### L 501.9520, L500.4050, L506.1000, L100.0100 ####[facility] [address] [place], [address] AST [Catalytic activity/Vol] 33 U/L Normal 15-37 [facility] Comment on above: Result Comment: Mode rate Hemolysis, Result may be falsely increased. Performed By: #### L 501.9520, L500.4050, L506.1000, L100.0100 ####[facility] [address] [place], [address] Bilirubin [Mass/Vol] 0.50 mg/dL Normal 0.20-1.00 [facility] Comment on above: Result Comment: For patients on eltrombopag therapy, use of Dimension [place] TBIL is not recommended. Performed By: #### L 501.9520, L500.4050, L506.1000, L100.0100 ####[facility] [address] [place], [address] BUN/CRE 23.5 RATIO High 10-20 [facility] Comment on above: Performed By: #### L 501.9520, L500.4050, L506.1000, L100.0100 ####[facility] [address] [place], [address] CA,Total 9.1 mg/dL Normal 8.5-10.1 [facility] Comment on above: Performed By: #### L 501.9520, L500.4050, L506.1000, L100.0100 ####[facility] [address] [place], [address] Chloride [Moles/Vol] 109 mmol/L High 98-107 [facility] Comment on above: Performed By: #### L 501.9520, L500.4050, L506.1000, L100.0100 ####[facility] [address] [place], [address] CO2 [Moles/Vol] 24.0 mmol/L Normal 21.0-32.0 [facility] Comment on above: Performed By: #### L 501.9520, L500.4050, L506.1000, L100.0100 ####[facility] [address] [place], [address] Creatinine [Mass/Vol] 0.94 mg/dL Normal 0.55-1.02 [facility] Comment on above: Result Comment: The validity of the calculated GFR GFRAA in patients over70 years has not been determined. Clinical correlation isessential. Performed By: #### L 501.9520, L500.4050, L506.1000, L100.0100 ####[facility] [address] [place], [address] EST GFR - AA 74 mL/min Normal >60 [facility] Comment on above: Result Comment: Afri can [place] GFR Calc Performed By: #### L 501.9520, L500.4050, L506.1000, L100.0100 ####[facility] [address] [place], [address] GAP 9 Normal 5-15 [facility] Comment on above: Performed By: #### L 501.9520, L500.4050, L506.1000, L100.0100 ####[facility] [address] [place], [address] GFR/1.73 sq M.predicted among non-blacks MDRD (S/P/Bld) [Vol rate/Area] 61 mL/min/{1.73_m2} Normal >60 [facility] Comment on above: Result Comment: Non- GFR Calc Performed By: #### L 501.9520, L500.4050, L506.1000, L100.0100 ####[facility] [address] [place], [address] Globulin (S) [Mass/Vol] 3.6 g/dL Normal 2.2-4.2 [facility] Comment on above: Performed By: #### L 501.9520, L500.4050, L506.1000, L100.0100 ####[facility] [address] [place], [address] Glucose [Mass/Vol] 108 mg/dL High 74-106 [facility] Comment on above: Result Comment: Fast ing Glucose result from 100 to 125 mg/dLsuggests IMPAIRED HOMEOSTASIS per A.D.A. criteria. Performed By: #### L 501.9520, L500.4050, L506.1000, L100.0100 ####[facility] [address] [place], [address] Potassium [Moles/Vol] 4.1 mmol/L Normal 3.5-5.1 [facility] Comment on above: Result Comment: Mode rate Hemolysis, Result may be falsely increased. Performed By: #### L 501.9520, L500.4050, L506.1000, L100.0100 ####[facility] [address] [place], [address] Sodium [Moles/Vol] 141 mmol/L Normal 136-145 [facility] Comment on above: Performed By: #### L 501.9520, L500.4050, L506.1000, L100.0100 ####[facility] [address] [place], [address] T PROT 7.1 g/dL Normal 6.4-8.2 [facility] Comment on above: Performed By: #### L 501.9520, L500.4050, L506.1000, L100.0100 ####[facility] [address] [place], [address] Urea nitrogen [Mass/Vol] 22 mg/dL High 7-18 [facility] Comment on above: Performed By: #### L 501.9520, L500.4050, L506.1000, L100.0100 ####[facility] [address] [place], [address] Thyroid Stim Hormone (TSH)on 01-31-2024 TSH 1.630 uIU/mL Normal 0.358-3.74 0 [facility] Comment on above: Performed By: #### L 501.9520, L500.4050, L506.1000, L100.0100 ####[facility] [address] [place], [address] Vitamin D,25 Hydroxyon 01-30 Vitamin D 25-OH 20.8 ng/mL Normal [facility] Comment on above: Result Comment: [place] min D 25(OH) Status Range Deficiency <20 ng/mL (50nmol/L) Insufficiency 20 - 30 ng/mL (50 - 75 nmol/L) Sufficiency 30 - 100 ng/mL (75 - 250 nmol/L) Toxicity >100 ng/mL (>250 nmol/L) Performed By: #### L 501.9520, L500.4050, L506.1000, L100.0100 ####[facility] [address] [place], [address] Laboratory - Hematology and Cell countsOrdered By: Umang Pate on 11-09-2023 Anisocytosis Ql (Bld) 1+ [facility] Serum or plasma thyroid stim ulating hormone (TSH) measurement (units/volume)Ordered By: Umang Pate on 08-05-2023 TSH Qn 1.06 uIU/mL 0.358-3.74 [facility] Absolute lymphocyte countOrd ered By: Dago Emery on 01-25-2023 Lymphocytes Auto (Unsp spec) [#/Vol] 1.06 10*3/uL 0.83-4.51 [facility] Basophil percentageOrdered B y: Dago Emery on 01-25-2023 Basophils/100 WBC (Bld) 0.2 % 0-1 [facility] Bilirubin [Mass/Vol] 0.40 mg/dL 0.20-1.00 [facility] Comment on above: For patients on eltr ombopag therapy, use of Dimension [place] TBIL is not recommended. Chloride [Moles/Vol] 108 mmol/L 98-107 [facility] Eosinophils/100 WBC (Bld) 1.1 % 0-5 [facility] Glucose [Mass/Vol] 116 mg/dL 74-106 [facility] Comment on above: Fasting Glucose resu lt from 100 to 125 mg/dL suggests IMPAIRED HOMEOSTASIS per A.D.A. criteria. Neutrophils (Bld) [#/Vol] 2.8 10*3/uL 2.0-7.7 [facility] Neutrophils/100 WBC (Bld) 64.3 % 47-70 [facility] Potassium [Moles/Vol] 3.6 mmol/L 3.5-5.1 [facility] Protein [Mass/Vol] 7.1 g/dL 6.4-8.2 [facility] Sodium [Moles/Vol] 141 mmol/L 136-145 [facility] WBC (Bld) [#/Vol] 4.4 10*3/uL 4.4-11.0 [facility] Blood erythrocytes count (nu mber/volume)Ordered By: Dago Emery on 01-25-2023 RBC (Bld) [#/Vol] 3.25 10*6/uL 4.2-5.4 [facility] Blood hemoglobin measurement (mass/volume)Ordered By: Dago Emery on 01-25-2023 Hemoglobin (Bld) [Mass/Vol] 11.8 g/dL 12.0-15.0 [facility] Blood lymphocytes/100 leukoc ytesOrdered By: Dago Emery on 01-25-2023 Lymphocytes/100 WBC (Bld) 24.1 % 19-41 [facility] Blood manual differential co mment interpretation (narrative result)Ordered By: Dago Emery on 01-25-2023 Manual differential comment Jack (Bld) [Interp] SCANNED [facility] Blood monocytes/100 leukocyt esOrdered By: Dago Emery on 01-25-2023 Monocytes/100 WBC (Bld) 9.8 % 0-10 [facility] Blood platelet mean volumeOr dered By: Dago Emery on 01-25-2023 Platelet mean volume (Bld) [Entitic vol] 11.2 fL 6.2-12.0 [facility] Determination of erythrocyte mean corpuscular volume (MCV)Ordered By: Dago Emery on 01-25-2023 MCV (RBC) [Entitic vol] 113.8 fL 81-99 [facility] Hematocrit Auto (Bld) [Volum e fraction]Ordered By: Dago Emery on 01-25-2023 Hematocrit (Bld) [Volume fraction] 37.0 % 37-47 [facility] Laboratory - Chemistry and C hemistry - challengeOrdered By: [facility] 01-25-2023 ALP [Catalytic activity/Vol] 82 U/L 45-117 [facility] ALT [Catalytic activity/Vol] 15 U/L 13-56 [facility] CO2 [Moles/Vol] 26.0 mmol/L 21.0-32.0 [facility] Globulin (S) [Mass/Vol] 3.8 g/dL 2.2-4.2 [facility] Urea nitrogen/Creatinine [Mass ratio] 18.6 mg/mg 10-20 [facility] Laboratory - Hematology and Cell countsOrdered By: Dago Emery 01-25-2023 Anisocytosis Ql (Bld) 2+ [facility] Erythrocyte distribution width (RBC) [Entitic vol] 65.5 fL 35.1-43.9 [facility] Erythrocyte distribution width (RBC) [Ratio] 15.7 % 11.6-14.6 [facility] Immature granulocytes/100 WBC (Bld) 0.500 % 0.0-0.9 [facility] Comment on above: IG% - Immature Granu locytes (promyelocytes, myelocytes and metamyelocytes) > 1% indicates that a LEFT SHIFT is Present. MCH (RBC) [Entitic mass] 36.3 pg 27.0-32.0 [facility] Nucleated RBC/100 WBC (Bld) [Ratio] 0 % 0-5 [facility] MCHC Auto (RBC) [Mass/Vol]Or dered By: Dago Emery on 01-25-2023 MCHC (RBC) [Mass/Vol] 31.9 g/dL 32-36 [facility] Macrocytes detectionOrdered By: Dago Emery on 01-25-2023 Macrocytes Ql (Bld) 2+ [facility] No Panel InformationOrdered By: Dago Emery on 01-25-2023 Estimated GFR (MDRD) Amer 67 mL/min >60 [facility] Comment on above: GFR Calc Estimated GFR (MDRD) Non-Af Amer 56 mL/min >60 [facility] Comment on above: Non- GFR Calc Thyroid Stimulating Hormone (TSH) 1.65 uIU/mL 0.358-3.74 [facility] Vitamin D 25-Hydroxy 39.0 ng/mL [facility] Comment on above: Vitamin D 25(OH) Sta tus Range Deficiency <20 ng/mL (50nmol/L) Insufficiency 20 - 30 ng/mL (50 - 75 nmol/L) Sufficiency 30 - 100 ng/mL (75 - 250 nmol/L) Toxicity >100 ng/mL (>250 nmol/L) Platelets bldOrdered By: Dago Emery on 01-25-2023 Platelets (Bld) [#/Vol] 265 10*3/uL 150-450 [facility] Serum or plasma albumin niels urement (mass/volume)Ordered By: Dago Emery on 01-25-2023 Albumin [Mass/Vol] 3.3 g/dL 3.2-5.0 [facility] Serum or plasma albumin/glob ulin mass ratioOrdered By: Dago Emery 01-25-2023 Albumin/Globulin [Mass ratio] 0.9 {ratio} 0.9-2.4 [facility] Serum or plasma calcium niels urement (mass/volume)Ordered By: Dago Emery on 01-25-2023 Calcium [Mass/Vol] 9.1 mg/dL 8.5-10.1 [place] [facility] Serum or plasma creatinine m easurement (mass/volume)Ordered By: Dago Emery on 01-25-2023 Creatinine [Mass/Vol] 1.02 mg/dL 0.55-1.02 [facility] Comment on above: The validity of the calculated GFR & GFRAA in patients over 70 years has not been determined. Clinical correlation is essential. Serum or plasma urea nitroge n measurement (mass/volume)Ordered By: Dago Emery on 01-25-2023 Urea nitrogen [Mass/Vol] 19 mg/dL 7-18 [facility] Thin prep Papanicolaou smear with manual screeningOrdered By: Dago Emery on 01-25-2023 Thin prep Papanicolaou smear with manual screening 25 U/L 15-37 [facility] Thin prep Papanicolaou smear with manual screening 7 5-15 [facility] Absolute lymphocyte countOrd ered By: Carolyn Ruvalcaba on 11-04-2022 Lymphocytes Auto (Unsp spec) [#/Vol] 1.04 10*3/uL 0.83-4.51 [facility] Basophil percentageOrdered B y: Carolyn Ruvalcaba on 11-04-2022 Basophils/100 WBC (Bld) 0.5 % 0-1 [facility] Bilirubin [Mass/Vol] 0.50 mg/dL 0.20-1.00 [facility] Comment on above: For patients on eltr ombopag therapy, use of Dimension [place] TBIL is not recommended. Chloride [Moles/Vol] 108 mmol/L 98-107 [facility] Eosinophils/100 WBC (Bld) 1.1 % 0-5 [facility] Glucose [Mass/Vol] 127 mg/dL 74-106 [facility] Comment on above: Fasting Glucose resu lt greater than or equal to 126 mg/dL suggests DIABETES MELLITUS per A.D.A. criteria. Neutrophils (Bld) [#/Vol] 4.6 10*3/uL 2.0-7.7 [facility] Neutrophils/100 WBC (Bld) 74.8 % 47-70 [facility] Potassium [Moles/Vol] 3.8 mmol/L 3.5-5.1 [facility] Protein [Mass/Vol] 7.4 g/dL 6.4-8.2 [facility] Sodium [Moles/Vol] 140 mmol/L 136-145 [facility] WBC (Bld) [#/Vol] 6.2 10*3/uL 4.4-11.0 [facility] Blood erythrocytes count (nu mber/volume)Ordered By: Carolyn Ruvalcaba on 11-04-2022 RBC (Bld) [#/Vol] 3.43 10*6/uL 4.2-5.4 [facility] Blood hemoglobin measurement (mass/volume)Ordered By: Carolyn uRvalcaba on 11-04-2022 Hemoglobin (Bld) [Mass/Vol] 12.0 g/dL 12.0-15.0 [facility] Blood lymphocytes/100 leukoc ytesOrdered By: Carolyn Ruvalcaba on 11-04-2022 Lymphocytes/100 WBC (Bld) 16.8 % 19-41 [facility] Blood monocytes/100 leukocyt esOrdered By: Carolyn Ruvalcaba on 11-04-2022 Monocytes/100 WBC (Bld) 6.5 % 0-10 [facility] Blood platelet mean volumeOr dered By: Carolyn Ruvalcaba on 11-04-2022 Platelet mean volume (Bld) [Entitic vol] 10.0 fL 6.2-12.0 [facility] Determination of erythrocyte mean corpuscular volume (MCV)Ordered By: Carolyn Ruvalcaba on 11-04-2022 MCV (RBC) [Entitic vol] 110.5 fL 81-99 [facility] Hematocrit Auto (Bld) [Volum e fraction]Ordered By: Carolyn Ruvalcaba on 11-04-2022 Hematocrit (Bld) [Volume fraction] 37.9 % 37-47 [facility] Laboratory - Chemistry and C hemistry - challengeOrdered By: Carolyn Ruvalcaba on 11-04-2022 ALP [Catalytic activity/Vol] 89 U/L 45-117 [facility] ALT [Catalytic activity/Vol] 18 U/L 13-56 [facility] CO2 [Moles/Vol] 25.0 mmol/L 21.0-32.0 [facility] Globulin (S) [Mass/Vol] 4.1 g/dL 2.2-4.2 [facility] Urea nitrogen/Creatinine [Mass ratio] 14.8 mg/mg 10-20 [facility] - Hematology and Cell countsOrdered By: Carolyn Ruvalcaba on 11-04-2022 Erythrocyte distribution width (RBC) [Entitic vol] 62.5 fL 35.1-43.9 [facility] Erythrocyte distribution width (RBC) [Ratio] 15.6 % 11.6-14.6 [facility] Immature granulocytes/100 WBC (Bld) 0.300 % 0.0-0.9 [facility] Comment on above: IG% - Immature Granu locytes (promyelocytes, myelocytes and metamyelocytes) > 1% indicates that a LEFT SHIFT is Present. MCH (RBC) [Entitic mass] 35.0 pg 27.0-32.0 [facility] Nucleated RBC/100 WBC (Bld) [Ratio] 0 % 0-5 [facility] MCHC Auto (RBC) [Mass/Vol]Or dered By: Carolyn Ruvalcaba on 11-04-2022 MCHC (RBC) [Mass/Vol] 31.7 g/dL 32-36 [facility] No Panel InformationOrdered By: Carolyn Ruvalcaba on 11-04-2022 Estimated Creatinine Clearance Calc 41.46 ml/min [facility] Estimated GFR (MDRD) Amer 73 mL/min >60 [facility] Comment on above: GFR Calc Estimated GFR (MDRD) Non-Af Amer 60 mL/min >60 [facility] Comment on above: Non- GFR Calc Platelets bldOrdered By: Nayan Ruvalcaba on 11-04-2022 Platelets (Bld) [#/Vol] 298 10*3/uL 150-450 [facility] Serum or plasma albumin niels urement (mass/volume)Ordered By: Carolyn Ruvalcaba on 11-04-2022 Albumin [Mass/Vol] 3.3 g/dL 3.2-5.0 [facility] Serum or plasma albumin/glob ulin mass ratioOrdered By: Carolyn Ruvalcaba on 11-04-2022 Albumin/Globulin [Mass ratio] 0.8 {ratio} 0.9-2.4 [facility] Serum or plasma calcium niels urement (mass/volume)Ordered By: Carolyn Ruvalcaba on 11-04-2022 Calcium [Mass/Vol] 9.2 mg/dL 8.5-10.1 [facility] Serum or plasma creatinine m easurement (mass/volume)Ordered By: Carolyn Ruvalcaba on 11-04-2022 Creatinine [Mass/Vol] 0.95 mg/dL 0.55-1.02 [facility] Comment on above: The validity of the calculated GFR & GFRAA in patients over 70 years has not been determined. Clinical correlation is essential. Serum or plasma urea nitroge n measurement (mass/volume)Ordered By: Carolyn Ruvalcaba on 11-04-2022 Urea nitrogen [Mass/Vol] 14 mg/dL 7-18 [facility] Thin prep Papanicolaou smear with manual screeningOrdered By: Carolyn Ruvalcaba on 11-04-2022 Thin prep Papanicolaou smear with manual screening 19 U/L 15-37 [facility] Thin prep Papanicolaou smear with manual screening 7 5-15 [facility] Absolute lymphocyte countOrd ered By: Dago Emery on 10-10-2022 Lymphocytes Auto (Unsp spec) [#/Vol] 1.27 10*3/uL 0.83-4.51 [facility] Basophil percentageOrdered B y: Dago Emery on 10-10-2022 Basophils/100 WBC (Bld) 0.4 % 0-1 [facility] Eosinophils/100 WBC (Bld) 5.2 % 0-5 [facility] Neutrophils (Bld) [#/Vol] 3.2 10*3/uL 2.0-7.7 [facility] Neutrophils/100 WBC (Bld) 61.5 % 47-70 [facility] WBC (Bld) [#/Vol] 5.2 10*3/uL 4.4-11.0 [facility] Chloride [Moles/Vol] 109 mmol/L 98-107 [facility] Glucose [Mass/Vol] 101 mg/dL 74-106 [facility] Comment on above: Fasting Glucose resu lt from 100 to 125 mg/dL suggests IMPAIRED HOMEOSTASIS per A.D.A. criteria. Potassium [Moles/Vol] 3.9 mmol/L 3.5-5.1 [facility] Sodium [Moles/Vol] 138 mmol/L 136-145 [facility] Blood erythrocytes count (nu mber/volume)Ordered By: Dago Emery on 10-10-2022 RBC (Bld) [#/Vol] 2.93 10*6/uL 4.2-5.4 [facility] Blood hemoglobin measurement (mass/volume)Ordered By: Dago Emery on 10-10-2022 Hemoglobin (Bld) [Mass/Vol] 10.5 g/dL 12.0-15.0 [facility] Blood lymphocytes/100 leukoc ytesOrdered By: [facility]-10-[facility] Lymphocytes/100 WBC (Bld) 24.4 % 19-41 [facility] Blood monocytes/100 leukocyt esOrdered By: [facility] 10-10-2022 Monocytes/100 WBC (Bld) 8.1 % 0-10 [facility] Blood platelet mean volumeOr dered By: [facility] on 10-10-2022 Platelet mean volume (Bld) [Entitic vol] 10.3 fL 6.2-12.0 [facility] Determination of erythrocyte mean corpuscular volume (MCV)Ordered By[facility] 10-10-[facility]22 MCV (RBC) [Entitic vol] 109.6 fL 81-99 [facility] Hematocrit Auto (Bld) [Volum e fraction]Ordered By: [facility] 10-10-2022 Hematocrit (Bld) [Volume fraction] 32.1 % 37-47 [facility] - Chemistry and C hemistry - challengeOrdered By: [facility] 10-10-2022 CO2 [Moles/Vol] 24.0 mmol/L 21.0-32.0 [facility] Urea nitrogen/Creatinine [Mass ratio] 24.1 mg/mg 10-20 [facility] - Hematology and Cell countsOrdered By: [facility] 10-10-2022 Erythrocyte distribution width (RBC) [Entitic vol] 54.4 fL 35.1-43.9 [facility] Erythrocyte distribution width (RBC) [Ratio] 13.9 % 11.6-14.6 [facility] Immature granulocytes/100 WBC (Bld) 0.400 % 0.0-0.9 [facility] Comment on above: IG% - Immature Granu locytes (promyelocytes, myelocytes and metamyelocytes) > 1% indicates that a LEFT SHIFT is Present. MCH (RBC) [Entitic mass] 35.8 pg 27.0-32.0 [facility] Nucleated RBC/100 WBC (Bld) [Ratio] 0 % 0-5 [facility] MCHC Auto (RBC) [Mass/Vol]Or dered By: Dago Emery on 10-10-2022 MCHC (RBC) [Mass/Vol] 32.7 g/dL 32-36 [facility] No Panel InformationOrdered By: Dago Emery on 10-10-2022 Estimated Creatinine Clearance Calc 41.05 ml/min [facility] Estimated GFR (MDRD) Amer 69 mL/min >60 [facility] Comment on above: GFR Calc Estimated GFR (MDRD) Non-Af Amer 57 mL/min >60 [facility] Comment on above: Non- GFR Calc Platelets bldOrdered By: Dago Emery on 10-10-2022 Platelets (Bld) [#/Vol] 409 10*3/uL 150-450 [facility] Serum or plasma calcium niels urement (mass/volume)Ordered By: Dago Emery on 10-10-2022 Calcium [Mass/Vol] 8.7 mg/dL 8.5-10.1 [facility] Serum or plasma creatinine m easurement (mass/volume)Ordered By: Dago Emery on 10-10-2022 Creatinine [Mass/Vol] 1.00 mg/dL 0.55-1.02 [facility] Comment on above: The validity of the calculated GFR & GFRAA in patients over 70 years has not been determined. Clinical correlation is essential. Serum or plasma urea nitroge n measurement (mass/volume)Ordered By: Dago Emery on 10-10-2022 Urea nitrogen [Mass/Vol] 24 mg/dL 7-18 [facility] Thin prep Papanicolaou smear with manual screeningOrdered By: Dago Emery on 10-10-2022 Thin prep Papanicolaou smear with manual screening 5 5-15 [facility] Absolute lymphocyte countOrd ered By: Dr. Pate on 08-05-2022 Lymphocytes Auto (Unsp spec) [#/Vol] 1.00 10*3/uL 0.83-4.51 [facility] Basophil percentageOrdered B y: Dr. Pate on 08-05-2022 Basophils/100 WBC (Bld) 0.6 % 0-1 [facility] Chloride [Moles/Vol] 111 mmol/L 98-107 [facility] Eosinophils/100 WBC (Bld) 2.5 % 0-5 [facility] Glucose [Mass/Vol] 116 mg/dL 74-106 [facility] Comment on above: Fasting Glucose resu lt from 100 to 125 mg/dL suggests IMPAIRED HOMEOSTASIS per A.D.A. criteria. Neutrophils (Bld) [#/Vol] 3.5 10*3/uL 2.0-7.7 [facility] Neutrophils/100 WBC (Bld) 67.0 % 47-70 [facility] Potassium [Moles/Vol] 3.9 mmol/L 3.5-5.1 [facility] Comment on above: Slight Hemolysis, Re sult may be falsely increased. Sodium [Moles/Vol] 141 mmol/L 136-145 [facility] WBC (Bld) [#/Vol] 5.3 10*3/uL 4.4-11.0 [facility] Blood erythrocytes count (nu mber/volume)Ordered By: Dr. Pate on 08-05-2022 RBC (Bld) [#/Vol] 3.36 10*6/uL 4.2-5.4 [facility] Blood hemoglobin measurement (mass/volume)Ordered By: Dr. Pate on 08-05-2022 Hemoglobin (Bld) [Mass/Vol] 12.4 g/dL 12.0-15.0 [facility] Blood lymphocytes/100 leukoc ytesOrdered By: Dr. Pate on 08-05-2022 Lymphocytes/100 WBC (Bld) 18.9 % 19-41 [facility] Blood monocytes/100 leukocyt esOrdered By: Dr. Pate on 08-05-2022 Monocytes/100 WBC (Bld) 10.2 % 0-10 [facility] Blood platelet mean volumeOr dered By: Dr. Pate on 08-05-2022 Platelet mean volume (Bld) [Entitic vol] 10.6 fL 6.2-12.0 [facility] Determination of erythrocyte mean corpuscular volume (MCV)Ordered By: Dr. Pate on 08-05-2022 MCV (RBC) [Entitic vol] 114.6 fL 81-99 [facility] Hematocrit Auto (Bld) [Volum e fraction]Ordered By: Dr. Pate on 08-05-2022 Hematocrit (Bld) [Volume fraction] 38.5 % 37-47 [facility] - Chemistry and C hemistry - challengeOrdered By: Dr. Pate on 08-05-2022 CO2 [Moles/Vol] 24.0 mmol/L 21.0-32.0 [facility] Urea nitrogen/Creatinine [Mass ratio] 23.1 mg/mg 10-20 [facility] - Hematology and Cell countsOrdered By: Dr. Pate on 08-05-2022 Erythrocyte distribution width (RBC) [Entitic vol] 59.2 fL 35.1-43.9 [facility] Erythrocyte distribution width (RBC) [Ratio] 14.0 % 11.6-14.6 [facility] Immature granulocytes/100 WBC (Bld) 0.800 % 0.0-0.9 [facility] Comment on above: IG% - Immature Granu locytes (promyelocytes, myelocytes and metamyelocytes) > 1% indicates that a LEFT SHIFT is Present. MCH (RBC) [Entitic mass] 36.9 pg 27.0-32.0 [facility] Nucleated RBC/100 WBC (Bld) [Ratio] 0 % 0-5 [facility] MCHC Auto (RBC) [Mass/Vol]Or dered By: Dr. Pate on 08-05-2022 MCHC (RBC) [Mass/Vol] 32.2 g/dL 32-36 [facility] No Panel InformationOrdered By: Dr. Pate on 08-05-2022 Estimated Creatinine Clearance Calc 37.88 ml/min [facility] Estimated GFR (MDRD) Amer 66 mL/min >60 [facility] Comment on above: GFR Calc Estimated GFR (MDRD) Non-Af Amer 54 mL/min >60 [facility] Comment on above: Non- GFR Calc Platelets bldOrdered By: Dr. Pate on 08-05-2022 Platelets (Bld) [#/Vol] 327 10*3/uL 150-450 [facility] Serum or plasma albumin niels urement (mass/volume)Ordered By: Dr. Pate on 08-05-2022 Albumin [Mass/Vol] 3.3 g/dL 3.2-5.0 [facility] Serum or plasma calcium niels urement (mass/volume)Ordered By: Dr. Pate on 08-05-2022 Calcium [Mass/Vol] 8.9 mg/dL 8.5-10.1 [facility] Serum or plasma creatinine m easurement (mass/volume)Ordered By: Dr. Pate on 08-05-2022 Creatinine [Mass/Vol] 1.04 mg/dL 0.55-1.02 [facility] Comment on above: The validity of the calculated GFR & GFRAA in patients over 70 years has not been determined. Clinical correlation is essential. Serum or plasma urea nitroge n measurement (mass/volume)Ordered By: Dr. Pate on 08-05-2022 Urea nitrogen [Mass/Vol] 24 mg/dL 7-18 [facility] Thin prep Papanicolaou smear with manual screeningOrdered By: Dr. Pate on 08-05-2022 Thin prep Papanicolaou smear with manual screening 6 -15 [facility] Absolute lymphocyte countOrd ered By: Dr. Pate on 07-20-2022 Lymphocytes Auto (Unsp spec) [#/Vol] 1.03 10*3/uL 0.83-4.51 [facility] Basophil percentageOrdered B y: Dr. Pate on 07-20-2022 Basophils/100 WBC (Bld) 0.3 % 0-1 [facility] Bilirubin [Mass/Vol] 0.40 mg/dL 0.20-1.00 [facility] Comment on above: For patients on eltr ombopag therapy, use of Dimension [place] TBIL is not recommended. Chloride [Moles/Vol] 107 mmol/L 98-107 [facility] Eosinophils/100 WBC (Bld) 2.4 % 0-5 [facility] Glucose [Mass/Vol] 109 mg/dL 74-106 [facility] Comment on above: Fasting Glucose resu lt from 100 to 125 mg/dL suggests IMPAIRED HOMEOSTASIS per A.D.A. criteria. Neutrophils (Bld) [#/Vol] 4.0 10*3/uL 2.0-7.7 [facility] Neutrophils/100 WBC (Bld) 68.9 % 47-70 [facility] Potassium [Moles/Vol] 4.0 mmol/L 3.5-5.1 [facility] Protein [Mass/Vol] 7.2 g/dL 6.4-8.2 [facility] Sodium [Moles/Vol] 140 mmol/L 136-145 [facility] WBC (Bld) [#/Vol] 5.8 10*3/uL 4.4-11.0 [facility] Blood erythrocytes count (nu mber/volume)Ordered By: Dr. Pate on 07-20-2022 RBC (Bld) [#/Vol] 3.25 10*6/uL 4.2-5.4 [facility] Blood hemoglobin measurement (mass/volume)Ordered By: Dr. Pate on 07-20-2022 Hemoglobin (Bld) [Mass/Vol] 12.2 g/dL 12.0-15.0 [facility] Blood lymphocytes/100 leukoc ytesOrdered By: Dr. Pate on 07-20-2022 Lymphocytes/100 WBC (Bld) 17.7 % 19-41 [facility] Blood monocytes/100 leukocyt esOrdered By: Dr. Pate on 07-20-2022 Monocytes/100 WBC (Bld) 10.2 % 0-10 [facility] Blood platelet mean volumeOr dered By: Dr. Pate on 07-20-2022 Platelet mean volume (Bld) [Entitic vol] 11.0 fL 6.2-12.0 [facility] Determination of erythrocyte mean corpuscular volume (MCV)Ordered By: Dr. Pate on 07-20-2022 MCV (RBC) [Entitic vol] 115.1 fL 81-99 [facility] Hematocrit Auto (Bld) [Volum e fraction]Ordered By: Dr. Pate on 07-20-2022 Hematocrit (Bld) [Volume fraction] 37.4 % 37-47 [facility] - Chemistry and C hemistry - challengeOrdered By: Dr. Pate on 07-20-2022 ALP [Catalytic activity/Vol] 89 U/L 45-117 [facility] ALT [Catalytic activity/Vol] 26 U/L 13-56 [facility] CO2 [Moles/Vol] 25.0 mmol/L 21.0-32.0 [facility] Globulin (S) [Mass/Vol] 3.9 g/dL 2.2-4.2 [facility] Urea nitrogen/Creatinine [Mass ratio] 18.1 mg/mg 10-20 [facility] - Hematology and Cell countsOrdered By: Dr. Pate on 07-20-2022 Erythrocyte distribution width (RBC) [Entitic vol] 63.6 fL 35.1-43.9 [facility] Erythrocyte distribution width (RBC) [Ratio] 15.0 % 11.6-14.6 [facility] Immature granulocytes/100 WBC (Bld) 0.500 % 0.0-0.9 [facility] Comment on above: IG% - Immature Granu locytes (promyelocytes, myelocytes and metamyelocytes) > 1% indicates that a LEFT SHIFT is Present. MCH (RBC) [Entitic mass] 37.5 pg 27.0-32.0 [facility] Nucleated RBC/100 WBC (Bld) [Ratio] 0 % 0-5 [facility] MCHC Auto (RBC) [Mass/Vol]Or dered By: Dr. Pate on 07-20-2022 MCHC (RBC) [Mass/Vol] 32.6 g/dL 32-36 [facility] No Panel InformationOrdered By: Dr. Pate on 07-20-2022 Estimated GFR (MDRD) Amer 58 mL/min >60 [facility] Comment on above: GFR Calc Estimated GFR (MDRD) Non-Af Amer 48 mL/min >60 [facility] Comment on above: Non- GFR Calc Thyroid Stimulating Hormone (TSH) 1.57 uIU/mL 0.358-3.74 [facility] Vitamin D 25-Hydroxy 32.7 ng/mL [facility] Comment on above: Vitamin D 25(OH) Sta tus Range Deficiency <20 ng/mL (50nmol/L) Insufficiency 20 - 30 ng/mL (50 - 75 nmol/L) Sufficiency 30 - 100 ng/mL (75 - 250 nmol/L) Toxicity >100 ng/mL (>250 nmol/L) Platelets bldOrdered By: Dr. Pate on 05-01-2023 Platelets (Bld) [#/Vol] 262 10*3/uL 150-450 [facility] Serum or plasma albumin niels urement (mass/volume)Ordered By: Dr. Pate on 07-20-2022 Albumin [Mass/Vol] 3.3 g/dL 3.2-5.0 [facility] Serum or plasma albumin/glob ulin mass ratioOrdered By: Dr. Pate on 07-20-2022 Albumin/Globulin [Mass ratio] 0.8 {ratio} 0.9-2.4 [facility] Serum or plasma calcium niels urement (mass/volume)Ordered By: Dr. Pate on 07-20-2022 Calcium [Mass/Vol] 8.9 mg/dL 8.5-10.1 [facility] Serum or plasma creatinine m easurement (mass/volume)Ordered By: Dr. Pate on 07-20-2022 Creatinine [Mass/Vol] 1.16 mg/dL 0.55-1.02 [facility] Comment on above: The validity of the calculated GFR & GFRAA in patients over 70 years has not been determined. Clinical correlation is essential. Serum or plasma urea nitroge n measurement (mass/volume)Ordered By: Dr. Pate on 07-20-2022 Urea nitrogen [Mass/Vol] 21 mg/dL 7-18 [facility] Thin prep Papanicolaou smear with manual screeningOrdered By: Dr. Pate on 07-20-2022 Thin prep Papanicolaou smear with manual screening 28 U/L 15-37 [facility] Thin prep Papanicolaou smear with manual screening 8 5-15 [facility] Absolute lymphocyte countOrd ered By: Dr. Pate on 05-06-2022 Lymphocytes Auto (Unsp spec) [#/Vol] 1.13 10*3/uL 0.83-4.51 [facility] Basophil percentageOrdered B y: Dr. Pate on 05-06-2022 Basophils/100 WBC (Bld) 0.2 % 0-1 [facility] Bilirubin [Mass/Vol] 0.40 mg/dL 0.20-1.00 [facility] Comment on above: For patients on eltr ombopag therapy, use of Dimension [place] TBIL is not recommended. Chloride [Moles/Vol] 106 mmol/L 98-107 [facility] Eosinophils/100 WBC (Bld) 1.0 % 0-5 [facility] Glucose [Mass/Vol] 133 mg/dL 74-106 [facility] Comment on above: Fasting Glucose resu lt greater than or equal to 126 mg/dL suggests DIABETES MELLITUS per A.D.A. criteria. Neutrophils (Bld) [#/Vol] 2.5 10*3/uL 2.0-7.7 [facility] Neutrophils/100 WBC (Bld) 60.9 % 47-70 [facility] Potassium [Moles/Vol] 3.4 mmol/L 3.5-5.1 [facility] Protein [Mass/Vol] 7.2 g/dL 6.4-8.2 [facility] Sodium [Moles/Vol] 140 mmol/L 136-145 [facility] WBC (Bld) [#/Vol] 4.1 10*3/uL 4.4-11.0 [facility] Blood erythrocytes count (nu mber/volume)Ordered By: Dr. Pate on 05-06-2022 RBC (Bld) [#/Vol] 3.32 10*6/uL 4.2-5.4 [facility] Blood hemoglobin measurement (mass/volume)Ordered By: Dr. Pate on 05-06-2022 Hemoglobin (Bld) [Mass/Vol] 12.4 g/dL 12.0-15.0 [facility] Blood lymphocytes/100 leukoc ytesOrdered By: Dr. Pate on 05-06-2022 Lymphocytes/100 WBC (Bld) 27.5 % 19-41 [facility] Blood monocytes/100 leukocyt esOrdered By: Dr. Pate on 05-06-2022 Monocytes/100 WBC (Bld) 9.7 % 0-10 [facility] Blood platelet mean volumeOr dered By: Dr. Pate on 05-06-2022 Platelet mean volume (Bld) [Entitic vol] 10.6 fL 6.2-12.0 [facility] Determination of erythrocyte mean corpuscular volume (MCV)Ordered By: Dr. Pate on 05-06-2022 MCV (RBC) [Entitic vol] 112.0 fL 81-99 [facility] Hematocrit Auto (Bld) [Volum e fraction]Ordered By: Dr. Pate on 05-06-2022 Hematocrit (Bld) [Volume fraction] 37.2 % 37-47 [facility] - Chemistry and C hemistry - challengeOrdered By: Dr. Pate on 05-06-2022 ALP [Catalytic activity/Vol] 75 U/L 45-117 [facility] ALT [Catalytic activity/Vol] 17 U/L 13-56 [facility] CO2 [Moles/Vol] 27.0 mmol/L 21.0-32.0 [facility] Globulin (S) [Mass/Vol] 3.8 g/dL 2.2-4.2 [facility] Urea nitrogen/Creatinine [Mass ratio] 20.2 mg/mg 10-20 [facility] - Hematology and Cell countsOrdered By: Dr. Pate on 05-06-2022 Erythrocyte distribution width (RBC) [Entitic vol] 62.5 fL 35.1-43.9 [facility] Erythrocyte distribution width (RBC) [Ratio] 15.3 % 11.6-14.6 [facility] Immature granulocytes/100 WBC (Bld) 0.700 % 0.0-0.9 [facility] Comment on above: IG% - Immature Granu locytes (promyelocytes, myelocytes and metamyelocytes) > 1% indicates that a LEFT SHIFT is Present. MCH (RBC) [Entitic mass] 37.3 pg 27.0-32.0 [facility] Nucleated RBC/100 WBC (Bld) [Ratio] 0 % 0-5 [facility] MCHC Auto (RBC) [Mass/Vol]Or dered By: Dr. Pate on 05-06-2022 MCHC (RBC) [Mass/Vol] 33.3 g/dL 32-36 [facility] No Panel InformationOrdered By: Dr. Pate on 05-06-2022 Estimated Creatinine Clearance Calc 36.73 ml/min [facility] Estimated GFR (MDRD) Amer 62 mL/min >60 [facility] Comment on above: GFR Calc Estimated GFR (MDRD) Non-Af Amer 52 mL/min >60 [facility] Comment on above: Non- GFR Calc Platelets bldOrdered By: Dr. Pate on 05-06-2022 Platelets (Bld) [#/Vol] 239 10*3/uL 150-450 [facility] Serum or plasma albumin niels urement (mass/volume)Ordered By: Dr. Pate on 05-06-2022 Albumin [Mass/Vol] 3.4 g/dL 3.2-5.0 [facility] Serum or plasma albumin/glob ulin mass ratioOrdered By: Dr. Pate on 05-06-2022 Albumin/Globulin [Mass ratio] 0.9 {ratio} 0.9-2.4 [facility] Serum or plasma calcium niels urement (mass/volume)Ordered By: Dr. Pate on 05-06-2022 Calcium [Mass/Vol] 8.9 mg/dL 8.5-10.1 [facility] Serum or plasma creatinine m easurement (mass/volume)Ordered By: Dr. Pate on 05-06-2022 Creatinine [Mass/Vol] 1.09 mg/dL 0.55-1.02 [facility] Comment on above: The validity of the calculated GFR & GFRAA in patients over 70 years has not been determined. Clinical correlation is essential. Serum or plasma urea nitroge n measurement (mass/volume)Ordered By: Dr. Pate on 05-06-2022 Urea nitrogen [Mass/Vol] 22 mg/dL -18 [facility] Thin prep Papanicolaou smear with manual screeningOrdered By: Dr. Pate on 05-06-2022 Thin prep Papanicolaou smear with manual screening 22 U/L 1537 [facility] Thin prep Papanicolaou smear with manual screening 7 5-15 [facility] Absolute lymphocyte countOrd ered By: Dr. Pate on 02-04-2022 Lymphocytes Auto (Unsp spec) [#/Vol] 1.02 10*3/uL 0.83-4.51 [facility] Basophil percentageOrdered B y: Dr. Pate on 02-04-2022 Basophils/100 WBC (Bld) 0.5 % 0-1 [facility] Bilirubin [Mass/Vol] 0.50 mg/dL 0.20-1.00 [facility] Comment on above: For patients on eltr ombopag therapy, use of Dimension [place] TBIL is not recommended. Chloride [Moles/Vol] 106 mmol/L 98-107 [facility] Eosinophils/100 WBC (Bld) 0.5 % 0-5 [facility] Glucose [Mass/Vol] 117 mg/dL 74-106 [facility] Comment on above: Fasting Glucose resu lt from 100 to 125 mg/dL suggests IMPAIRED HOMEOSTASIS per A.D.A. criteria. Neutrophils (Bld) [#/Vol] 2.9 10*3/uL 2.0-7.7 [facility] Health Neutrophils/100 WBC (Bld) 65.2 % 47-70 [facility] Potassium [Moles/Vol] 4.2 mmol/L 3.5-5.1 [facility] Comment on above: Slight Hemolysis, Re sult may be falsely increased. Protein [Mass/Vol] 7.7 g/dL 6.4-8.2 [facility] Sodium [Moles/Vol] 141 mmol/L 136-145 [facility] WBC (Bld) [#/Vol] 4.4 10*3/uL 4.4-11.0 [facility] Blood erythrocytes count (nu mber/volume)Ordered By: Dr. Pate on 02-04-2022 RBC (Bld) [#/Vol] 3.63 10*6/uL 4.2-5.4 [facility] Blood hemoglobin measurement (mass/volume)Ordered By: Dr. Pate on 02-04-2022 Hemoglobin (Bld) [Mass/Vol] 13.2 g/dL 12.0-15.0 [facility] Blood lymphocytes/100 leukoc ytesOrdered By: Dr. Pate on 02-04-2022 Lymphocytes/100 WBC (Bld) 23.3 % 19-41 [facility] Blood monocytes/100 leukocyt esOrdered By: Dr. Pate on 02-04-2022 Monocytes/100 WBC (Bld) 9.8 % 0-10 [facility] Blood platelet mean volumeOr dered By: Dr. Pate on 02-04-2022 Platelet mean volume (Bld) [Entitic vol] 10.4 fL 6.2-12.0 [facility] Determination of erythrocyte mean corpuscular volume (MCV)Ordered By: Dr. Pate on 02-04-2022 MCV (RBC) [Entitic vol] 111.0 fL 81-99 [facility] Hematocrit Auto (Bld) [Volum e fraction]Ordered By: Dr. Pate on 02-04-2022 Hematocrit (Bld) [Volume fraction] 40.3 % 37-47 [facility] Laboratory - Chemistry and C hemistry - challengeOrdered By: Dr. Pate on 02-04-2022 ALP [Catalytic activity/Vol] 82 U/L 45-117 [facility] ALT [Catalytic activity/Vol] 23 U/L 13-56 [facility] CO2 [Moles/Vol] 28.0 mmol/L 21.0-32.0 [facility] Globulin (S) [Mass/Vol] 4.3 g/dL 2.2-4.2 [facility] Urea nitrogen/Creatinine [Mass ratio] 16.0 mg/mg 10-20 [facility] - Hematology and Cell countsOrdered By: Dr. Pate on 02-04-2022 Erythrocyte distribution width (RBC) [Entitic vol] 63.5 fL 35.1-43.9 [facility] Erythrocyte distribution width (RBC) [Ratio] 15.6 % 11.6-14.6 [facility] Immature granulocytes/100 WBC (Bld) 0.700 % 0.0-0.9 [facility] Comment on above: IG% - Immature Granu locytes (promyelocytes, myelocytes and metamyelocytes) > 1% indicates that a LEFT SHIFT is Present. MCH (RBC) [Entitic mass] 36.4 pg 27.0-32.0 [facility] Nucleated RBC/100 WBC (Bld) [Ratio] 0 % 0-5 [facility] MCHC Auto (RBC) [Mass/Vol]Or dered By: Dr. Pate on 02-04-2022 MCHC (RBC) [Mass/Vol] 32.8 g/dL 32-36 [facility] No Panel InformationOrdered By: Dr. Pate on 02-04-2022 Estimated Creatinine Clearance Calc 37.77 ml/min [facility] Estimated GFR (MDRD) Amer 64 mL/min >60 [facility] Comment on above: GFR Calc Estimated GFR (MDRD) Non-Af Amer 53 mL/min >60 [facility] Comment on above: Non- GFR Calc Platelets bldOrdered By: Dr. Pate on 02-04-2022 Platelets (Bld) [#/Vol] 300 10*3/uL 150-450 [facility] Serum or plasma albumin niels urement (mass/volume)Ordered By: Dr. Pate on 02-04-2022 Albumin [Mass/Vol] 3.4 g/dL 3.2-5.0 [facility] Serum or plasma albumin/glob ulin mass ratioOrdered By: Dr. Pate on 02-04-2022 Albumin/Globulin [Mass ratio] 0.8 {ratio} 0.9-2.4 [facility] Serum or plasma calcium niels urement (mass/volume)Ordered By: Dr. Pate on 02-04-2022 Calcium [Mass/Vol] 9.4 mg/dL 8.5-10.1 [facility] Serum or plasma creatinine m easurement (mass/volume)Ordered By: Dr. Pate on 02-04-2022 Creatinine [Mass/Vol] 1.06 mg/dL 0.55-1.02 [facility] Comment on above: The validity of the calculated GFR & GFRAA in patients over 70 years has not been determined. Clinical correlation is essential. Serum or plasma urea nitroge n measurement (mass/volume)Ordered By: Dr. Pate on 02-04-2022 Urea nitrogen [Mass/Vol] 17 mg/dL 7-18 [facility] Thin prep Papanicolaou smear with manual screeningOrdered By: Dr. Pate on 02-04-2022 Thin prep Papanicolaou smear with manual screening 25 U/L [facility] Comment on above: Slight Hemolysis, Re sult may be falsely increased. Thin prep Papanicolaou smear with manual screening 7 5-15 [facility] Absolute lymphocyte countOrd ered By: Dr. Emery on 01-19-2022 Lymphocytes Auto (Unsp spec) [#/Vol] 1.06 10*3/uL 0.83-4.51 [facility] Basophil percentageOrdered B y: Dr. Emery on 01-19-2022 Basophils/100 WBC (Bld) 0.4 % 0-1 [facility] Bilirubin [Mass/Vol] 0.50 mg/dL 0.20-1.00 [facility] Comment on above: For patients on eltr ombopag therapy, use of Dimension [place] TBIL is not recommended. Chloride [Moles/Vol] 106 mmol/L 98-107 [facility] Eosinophils/100 WBC (Bld) 1.1 % 0-5 [facility] Glucose [Mass/Vol] 122 mg/dL 74-106 [facility] Comment on above: Fasting Glucose resu lt from 100 to 125 mg/dL suggests IMPAIRED HOMEOSTASIS per A.D.A. criteria. Neutrophils (Bld) [#/Vol] 4.0 10*3/uL 2.0-7.7 [facility] Neutrophils/100 WBC (Bld) 70.3 % 47-70 [facility] Potassium [Moles/Vol] 3.8 mmol/L 3.5-5.1 [facility] Comment on above: Slight Hemolysis, Re sult may be falsely increased. Protein [Mass/Vol] 7.3 g/dL 6.4-8.2 [facility] Sodium [Moles/Vol] 140 mmol/L 136-145 [facility] WBC (Bld) [#/Vol] 5.6 10*3/uL 4.4-11.0 [facility] Blood erythrocytes count (nu mber/volume)Ordered By: Dr. Emery on 01-19-2022 RBC (Bld) [#/Vol] 3.58 10*6/uL 4.2-5.4 [facility] Blood hemoglobin measurement (mass/volume)Ordered By: Dr. Emery on 01-19-2022 Hemoglobin (Bld) [Mass/Vol] 13.5 g/dL 12.0-15.0 [facility] Blood lymphocytes/100 leukoc ytesOrdered By: Dr. Emery on 01-19-2022 Lymphocytes/100 WBC (Bld) 18.9 % 19-41 [facility] Blood monocytes/100 leukocyt esOrdered By: Dr. Emery on 01-19-2022 Monocytes/100 WBC (Bld) 8.9 % 0-10 [facility] Blood platelet mean volumeOr dered By: Dr. Emery on 01-19-2022 Platelet mean volume (Bld) [Entitic vol] 10.4 fL 6.2-12.0 [facility] Determination of erythrocyte mean corpuscular volume (MCV)Ordered By: Dr. Emery on 01-19-2022 MCV (RBC) [Entitic vol] 110.1 fL 81-99 [facility] Hematocrit Auto (Bld) [Volum e fraction]Ordered By: Dr. Emery on 01-19-2022 Hematocrit (Bld) [Volume fraction] 39.4 % 37-47 [facility] Laboratory - Chemistry and C hemistry - challengeOrdered By: Dr. Emery on 01-19-2022 ALP [Catalytic activity/Vol] 87 U/L 45-117 [facility] ALT [Catalytic activity/Vol] 21 U/L 13-56 [facility] CO2 [Moles/Vol] 27.0 mmol/L 21.0-32.0 [facility] Globulin (S) [Mass/Vol] 4.0 g/dL 2.2-4.2 [facility] Urea nitrogen/Creatinine [Mass ratio] 16.0 mg/mg 10-20 [facility] - Hematology and Cell countsOrdered By: Dr. Emery on 01-19-2022 Erythrocyte distribution width (RBC) [Entitic vol] 61.0 fL 35.1-43.9 [facility] Erythrocyte distribution width (RBC) [Ratio] 15.3 % 11.6-14.6 [facility] Immature granulocytes/100 WBC (Bld) 0.400 % 0.0-0.9 [facility] Comment on above: IG% - Immature Granu locytes (promyelocytes, myelocytes and metamyelocytes) > 1% indicates that a LEFT SHIFT is Present. MCH (RBC) [Entitic mass] 37.7 pg 27.0-32.0 [facility] Nucleated RBC/100 WBC (Bld) [Ratio] 0 % 0-5 [facility] MCHC Auto (RBC) [Mass/Vol]Or dered By: Dr. Emery on 01-19-2022 MCHC (RBC) [Mass/Vol] 34.3 g/dL 32-36 [facility] No Panel InformationOrdered By: Dr. Emery on 01-19-2022 Estimated GFR (MDRD) Amer 64 mL/min >60 [facility] Comment on above: GFR Calc Estimated GFR (MDRD) Non-Af Amer 53 mL/min >60 [facility] Comment on above: Non- GFR Calc Thyroid Stimulating Hormone (TSH) 1.77 uIU/mL 0.358-3.74 [facility] Vitamin D 25-Hydroxy 28.7 ng/mL [facility] Comment on above: Vitamin D 25(OH) Sta tus Range Deficiency <20 ng/mL (50nmol/L) Insufficiency 20 - 30 ng/mL (50 - 75 nmol/L) Sufficiency 30 - 100 ng/mL (75 - 250 nmol/L) Toxicity >100 ng/mL (>250 nmol/L) Platelets bldOrdered By: Dr. Emery on 01-19-2022 Platelets (Bld) [#/Vol] 258 10*3/uL 150-450 [facility] Serum or plasma albumin niels urement (mass/volume)Ordered By: Dr. Emery on 01-19-2022 Albumin [Mass/Vol] 3.3 g/dL 3.2-5.0 [facility] Serum or plasma albumin/glob ulin mass ratioOrdered By: Dr. Emery on 01-19-2022 Albumin/Globulin [Mass ratio] 0.8 {ratio} 0.9-2.4 [facility] Serum or plasma calcium niels urement (mass/volume)Ordered By: Dr. Emery on 01-19-2022 Calcium [Mass/Vol] 9.2 mg/dL 8.5-10.1 [facility] Serum or plasma creatinine m easurement (mass/volume)Ordered By: Dr. Emery on 01-19-2022 Creatinine [Mass/Vol] 1.06 mg/dL 0.55-1.02 [facility] Comment on above: The validity of the calculated GFR & GFRAA in patients over 70 years has not been determined. Clinical correlation is essential. Serum or plasma urea nitroge n measurement (mass/volume)Ordered By: Dr. Emery on 01-19-2022 Urea nitrogen [Mass/Vol] 17 mg/dL 7-18 [facility] Thin prep Papanicolaou smear with manual screeningOrdered By: Dr. Emery on 01-19-2022 Thin prep Papanicolaou smear with manual screening 24 U/L 15-37 [facility] Comment on above: Slight Hemolysis, Re sult may be falsely increased. Thin prep Papanicolaou smear with manual screening 7 5-15 [facility] Absolute lymphocyte counton 11-04-2021 Lymphocytes Auto (Unsp spec) [#/Vol] 1.00 10*3/uL 0.83-4.51 [facility] Work Phone: [phone] Basophil percentageon 2021 Basophils/100 WBC (Bld) 0.3 % 0-1 [facility] Work Phone: [phone] Bilirubin [Mass/Vol] 0.50 mg/dL 0.20-1.00 [facility] Work Phone: Comment on above: For patients on eltr ombopag therapy, use of Dimension [place] TBIL is not recommended. Chloride [Moles/Vol] 109 mmol/L 98-107 [facility] Work Phone: [phone] Eosinophils/100 WBC (Bld) 1.0 % 0-5 [facility] Work Phone: [phone] Glucose [Mass/Vol] 126 mg/dL 74-106 [facility] Work Phone: [phone] Comment on above: Fasting Glucose resu lt greater than or equal to 126 mg/dL suggests DIABETES MELLITUS per A.D.A. criteria. Neutrophils (Bld) [#/Vol] 4.5 10*3/uL 2.0-7.7 [facility] Work Phone: [phone] Neutrophils/100 WBC (Bld) 75.0 % 47-70 [facility] Work Phone: [phone] Potassium [Moles/Vol] 3.7 mmol/L 3.5-5.1 [facility] Work Phone: Comment on above: Slight Hemolysis, Re sult may be falsely increased. Protein [Mass/Vol] 7.5 g/dL 6.4-8.2 [facility] Work Phone: Sodium [Moles/Vol] 141 mmol/L 136-145 [facility] Work Phone: WBC (Bld) [#/Vol] 6.0 10*3/uL 4.4-11.0 [facility] Work Phone: Blood erythrocytes count (nu mber/volume)on 11-04-2021 RBC (Bld) [#/Vol] 3.60 10*6/uL 4.2-5.4 [facility] Work Phone: [phone] Blood hemoglobin measurement (mass/volume)on 11-04-2021 Hemoglobin (Bld) [Mass/Vol] 13.3 g/dL 12.0-15.0 [facility] Work Phone: Blood lymphocytes/100 leukoc yteson 11-04-2021 Lymphocytes/100 WBC (Bld) 16.7 % 19-41 [facility] Work Phone: Blood monocytes/100 leukocyt eson 11-04-2021 Monocytes/100 WBC (Bld) 6.5 % 0-10 [facility] Work Phone: Blood platelet mean volumeon 11-04-2021 Platelet mean volume (Bld) [Entitic vol] 10.5 fL 6.2-12.0 [facility] Work Phone: Determination of erythrocyte mean corpuscular volume (MCV)on 11-04-2021 MCV (RBC) [Entitic vol] 111.9 fL 81-99 [facility] Work Phone: Hematocrit Auto (Bld) [Volum e fraction]on 11-04-2021 Hematocrit (Bld) [Volume fraction] 40.3 % 37-47 [facility] Work Phone: Laboratory - Chemistry and C hemistry - challengeon 11-04-2021 ALP [Catalytic activity/Vol] 82 U/L 45-117 [facility] Work Phone: ALT [Catalytic activity/Vol] 22 U/L 13-56 [facility] Work Phone: CO2 [Moles/Vol] 26.0 mmol/L 21.0-32.0 [facility] Work Phone: Globulin (S) [Mass/Vol] 4.2 g/dL 2.2-4.2 [facility] Work Phone: Urea nitrogen/Creatinine [Mass ratio] 14.0 mg/mg 10-20 [facility] Work Phone: Laboratory - Hematology and Cell countson 11-04-2021 Erythrocyte distribution width (RBC) [Entitic vol] 55.7 fL 35.1-43.9 [facility] Work Phone: Erythrocyte distribution width (RBC) [Ratio] 13.7 % 11.6-14.6 [facility] Work Phone: Immature granulocytes/100 WBC (Bld) 0.500 % 0.0-0.9 [facility] Work Phone: Comment on above: IG% - Immature Granu locytes (promyelocytes, myelocytes and metamyelocytes) > 1% indicates that a LEFT SHIFT is Present. MCH (RBC) [Entitic mass] 36.9 pg 27.0-32.0 [facility] Work Phone: Nucleated RBC/100 WBC (Bld) [Ratio] 0 % 0-5 [facility] Work Phone: MCHC Auto (RBC) [Mass/Vol]on 11-04-2021 MCHC (RBC) [Mass/Vol] 33.0 g/dL 32-36 [facility] Work Phone: No Panel Informationon 11-04 Estimated Creatinine Clearance Calc 35.12 ml/min [facility] Work Phone: Estimated GFR (MDRD) Amer 59 mL/min >60 [facility] Work Phone: Comment on above: GFR Calc Estimated GFR (MDRD) Non-Af Amer 49 mL/min >60 [facility] Work Phone: Comment on above: Non- GFR Calc Platelets bldon 11-04-2021 Platelets (Bld) [#/Vol] 290 10*3/uL 150-450 [facility] Work Phone: Serum or plasma albumin niels urement (mass/volume)on 11-04-2021 Albumin [Mass/Vol] 3.3 g/dL 3.2-5.0 [facility] Work Phone: Serum or plasma albumin/glob ulin mass ratioon 11-04-2021 Albumin/Globulin [Mass ratio] 0.8 {ratio} 0.9-2.4 [facility] Work Phone: Serum or plasma calcium niels urement (mass/volume)on 11-04-2021 Calcium [Mass/Vol] 9.3 mg/dL 8.5-10.1 [facility] Work Phone: Serum or plasma creatinine m easurement (mass/volume)on 11-04-2021 Creatinine [Mass/Vol] 1.14 mg/dL 0.55-1.02 [facility] Work Phone: Comment on above: The validity of the calculated GFR & GFRAA in patients over 70 years has not been determined. Clinical correlation is essential. Serum or plasma urea nitroge n measurement (mass/volume)on 11-04-2021 Urea nitrogen [Mass/Vol] 16 mg/dL 7-18 [facility] Work Phone: Thin prep Papanicolaou smear with manual screeningon 11-04-2021 Thin prep Papanicolaou smear with manual screening 23 U/L 15-37 [facility] Work Phone: Comment on above: Slight Hemolysis, Re sult may be falsely increased. Thin prep Papanicolaou smear with manual screening 6 5-15 [facility] Work Phone: Blood platelet adequacy dete ction by light microscopyon 11-24-2018 Platelets LM Ql (Bld) ADEQUATE ADEQ [facility] Blood platelet morphology de termination (nominal result)on 11-24-2018 Platelet morphology finding Nom (Bld) LARGE [facility] Laboratory - Hematology and Cell countson 11-24-2018 Anisocytosis Ql (Bld) 2+ [facility] Macrocytes detectionon 11-24 Macrocytes Ql (Bld) 1+ [facility] Target cell detectionon Target cells LM Ql (Bld) RARE [facility] Hypochromatic red blood cell detectionon 10-27-2018 Hypochromia Ql (Bld) 1+ [facility] No Panel Informationon 10-27 Differential Comment SCANNED [facility] Comment on above: DIMORPHIC RBC POPULA TION NOTED Review by pathologiston Pathologist review Jack (Unsp spec) [Interp] Reviewed [facility] Comment on above: Previous reported re sult: Jahaira corral Edited by: URIEL on 10/28/18:1304 AMENDED REPORT 10/28/18 1304 PATH REV previously reported as: Jahaira corral Absolute reticulocyte counto n 10-13-2018 Reticulocytes (Bld) [#/Vol] 0.00 10*3/uL 0-5 [facility] - Hematology and Cell countson 09-29-2018 Erythrocyte distribution width (RBC) [Ratio] 24.6 % High 11.6-14.6 [facility] No Panel Informationon 09-29 Red Cell Distribution Width Diff 73.7 fl High 35.1-43.9 [facility] Total cell counton 9 Cells counted [employer] (Bld/Tiss) [#] Not Reportable [facility] RBC morphologyon 09-21-2018 RBC morphology finding Nom (Bld) N CHROM NORMAL NORM C&C [facility] [employer] mix RAST testo n 06-27-2018 LDH [Catalytic activity/Vol] 283 U/L High 84-246 [facility] Comment on above: Slight Hemolysis, Re sult may be falsely increased. Iron measurement (mass/mass) on 06-27-2018 Iron (Unsp spec) [Mass/Mass] 54 ug/dL 50-170 [facility] Comment on above: Slight Hemolysis, Re sult may be falsely increased. JAK2 V617F mutation detectio non 06-27-2018 JAK2 gene p.[id number] [employer] Ql (Bld/Tiss) Comment High . [facility] Comment on above: Result: POSITIVE for the detection of the V617F mutation.Interpretation: The assay detected the presence of a G toT nucleotide change encoding the V617F mutation withinJAK2. Interpretation of this result should be made in thecontext of other clinical, morphologic, and cytogeneticfindings. No Panel Informationon 06-27 JAK2 Mutation Comment . [facility] Comment on above: JAK2 is a cytoplasmi c tyrosine kinase with a ferrell role insignal transduction from multiple hematopoietic growthfactor receptors. A point mutation within exon 14 of theJAK2 gene ([id number]) encoding a valine to phenylalaninesubstitution at position [...] specific to JAK2 wild type (WT) and ARL2unkzse V617F. The Agent [employer] Absolute Quantitation softwarewill compare the patient specimen valuse to the standardcurves and generate percent values for wild type andmutant type. In vitro studies have indicated that thisassay has an analytical sensitivity of 1%.References:Matthew EJ, Jean LM, Zachary PJ, et al. Acquiredmutation of the tyrosine kinase JAK2 in humanmyeloproliferative disorders. Lancet. 2005 Jun 07;365(7774):6619-5094. Travis Santiago, Guido V, Mary Rosas DEBO. Aunique clonal JAK2 mutation leading to constitutivesignaling causes polycythaemia vera. Nature. 2005 Jul 17;434(2955):6712-5917.Nicolas R, Bolivar F, Jolynn , et al. A xafx-me-gdwslole mutation of JAK2 in myeloproliferative disorders.N Engl J Med. 2005 Jul 17; 352(17):9490-1089. Miscellaneous Test See comment [facility] Comment on above: TEST RESULT UNITS [...] was developed and its performancecharacteristics determined by [employer]). It has not been cleared orapproved by the U.S. Food and Drug Administration. The DNAprobe vendor for this study was [employer] ([email or web address]).Specimen Type Comment: BLOODDirector Review: Comment: Travis Chavez, PhD, [facility] .Specimen Type Comment: BLOODCells Counted 5Cells Analyzed [...] chromosomal changes occur.Director Review: Comment:AMIE FERREIRA, PHD, [facility] TESTING PERFORMED AT [facility]. ORIGINAL REPORT ON FILE IN LAB CONTAINS ADDITIONAL TEST SITE INFORMATION. Total Iron Binding Capacity 289 ug/dL 250-450 [facility] Serum or plasma erythropoiet in (EPO) measurement (units/volume)on 06-27-2018 Erythropoietin (EPO) Qn 4.2 mIU/mL 2.6-18.5 [facility] Comment on above: [employer] Uni[employer] DxI 800 Immunoassay SystemValues obtained with different assay methods or kits cannotbe used interchangeably. Results cannot be interpreted asabsolute evidence of the presence or absence of malignantdisease.Performed at: [facility] [id number] [facility], [facility], [place] [id number] Director: jM Coronado MD, Phone: [phone] at: [facility] [id number] [address] [facility], [place] [id number] Director: Mj Coronado MD, Phone: [phone] at: [address] [id number] Director: Ruddy Parks PhD, Phone: [phone] Serum or plasma ferritin hayden surement (mass/volume)on 06-27-2018 Ferritin [Mass/Vol] 561 ng/mL High 8-252 [facility] Serum or plasma iron saturat ion measurement (mass fraction)on 06-27-2018 Iron saturation [Mass fraction] 18.7 % 15.0-55.0 [facility] Serum or plasma uric acid me asurement (mass/volume)on 06-27-2018 Urate [Mass/Vol] 4.2 mg/dL 2.6-6.0 [facility] Comment on above: The drugs N-Acetylcy steine and Metamizole may falsely depress this assay. Thin prep Papanicolaou smear with manual screeningon 06-27-2018 Thin prep Papanicolaou smear with manual screening 283 U/L 84-246 [facility] Comment on above: Slight Hemolysis, Re sult may be falsely increased. Vital Signs Date Time Vital Sign Value Performing Clinician Erici shante 11-28-2024 08:58-0400 Diastolic blood pressure 56 mm[Hg] Dr. Dago Emery MD Work Phone: [facility] 11-28-2024 08:58-0400 Systolic blood pressure 119 mm[Hg] Dr. Dago Emery MD Work Phone: [facility] 11-28-2024 08:04-0400 Body temperature 98.1 [degF] Dr. Dago Emery MD Work Phone: [facility] 11-28-2024 08:04-0400 Heart rate 69 /min Dr. Dago Emery MD Work Phone: [facility] 11-28-2024 08:04-0400 Respiratory rate 16 /min Dr. Dago Emery MD Work Phone: [facility] 11-28-2024 08:04-0400 SaO2% (BldA) [Mass fraction] 93 % Dr. Dago Emery MD Work Phone: [facility] 11-22-2024 14:50-0400 Body height 165.[address] Dago Emery MD Work Phone: [facility] 11-22-2024 14:50-0400 Body weight 85.[address] Dago Emery MD Work Phone: [facility] 11-21-2024 14:00-0400 Body mass index (BMI) [Ratio] 31.4 kg/m2 Dr. Dago Emery MD Work Phone: [facility] 11-01-2024 16:35-0400 Diastolic blood pressure 71 mm[Hg] Dr. Dago Emery MD Work Phone: [facility] 11-01-2024 16:35-0400 Heart rate 64 /min Dr. Dago Emery MD Work Phone: 6(131)629-548479 [place] [address] 11-01-2024 16:35-0400 Respiratory rate 16 /min Dr. Dago Emery MD Work Phone: 8(807)664-363079 [place] [address] 11-01-2024 16:35-0400 SaO2% (BldA) [Mass fraction] 96 % Dr. Dago Emery MD Work Phone: 7(427)840-680001 [place] [address] 11-01-2024 16:35-0400 Systolic blood pressure 163 mm[Hg] Dr. Dago Emery MD Work Phone: 4(723)709-698901 [place] [address] 11-01-2024 16:20-0400 Body temperature 98.5 [degF] Dr. Dago Emery MD Work Phone: 3(169)382-193501 [place] [address] 11-01-2024 15:07-0400 Body height 165.[address] Dago Emery MD Work Phone: 2(645)588-506301 [place] [address] 11-01-2024 15:07-0400 Body mass index (BMI) [Ratio] 32.5 kg/m2 Dr. Dago Emery MD Work Phone: 9(392)170-153301 [place] [address] 11-01-2024 15:07-0400 Body weight 88.[address] Dago Emery MD Work Phone: 0(324)732-339801 [place] [address] 11-01-2024 14:26-0400 Body mass index (BMI) [Ratio] 32.8 kg/m2 Dr. Dago Emery MD Work Phone: 9(741)028-746979 [place] [address] 11-01-2024 14:26-0400 Body temperature 97.7 [degF] Dr. Dago Emery MD Work Phone: 6(947)120-444879 [place] [address] 11-01-2024 14:26-0400 Body weight 89.[address] Dago Emery MD Work Phone: 2(985)007-495579 [place] [address] 11-01-2024 14:26-0400 Diastolic blood pressure 68 mm[Hg] Dr. Dago Emery MD Work Phone: 6(650)353-792901 [place] [address] 11-01-2024 14:26-0400 Heart rate 67 /min Dr. Dago Emery MD Work Phone: 7(486)071-051079 [place] [address] 11-01-2024 14:26-0400 Respiratory rate 19 /min Dr. Dago Emery MD Work Phone: 6(723)341-175101 [place] [address] 11-01-2024 14:26-0400 SaO2% (BldA) [Mass fraction] 96 % Dr. Dago Emery MD Work Phone: 1(735)178-349601 [place] [address] 11-01-2024 14:26-0400 Systolic blood pressure 153 mm[Hg] Dr. Dago Emery MD Work Phone: 6(444)977-193301 [place] [address] 10-21-2024 13:13-0400 Body temperature 98.3 [degF] Dr. Dago Emery MD Work Phone: 0(572)322-541201 [place] [address] 10-21-2024 13:13-0400 Diastolic blood pressure 67 mm[Hg] Dr. Dago Emery MD Work Phone: 4(753)699-238601 [place] [address] 10-21-2024 13:13-0400 Heart rate 62 /min Dr. Dago Emery MD Work Phone: 0(021)877-685701 [place] [address] 10-21-2024 13:13-0400 Respiratory rate 18 /min Dr. Dago Emery MD Work Phone: 6(374)716-296501 [place] [address] 10-21-2024 13:13-0400 SaO2% (BldA) [Mass fraction] 95 % Dr. Dago Emery MD Work Phone: 4(853)267-940401 [place] [address] 10-21-2024 13:13-0400 Systolic blood pressure 129 mm[Hg] Dr. Dago Emery MD Work Phone: 1(510)998-254601 [place] [address] 10-16-2024 22:13-0400 Inhaled oxygen flow rate 2 L/min Dr. Dago Emery MD Work Phone: 3(449)836-74[address] [place] [address] 10-16-2024 20:13-0400 Body height 165.[address] Dago Emery MD Work Phone: 7(329)276-212101 [place] [address] 10-16-2024 20:13-0400 Body mass index (BMI) [Ratio] 31.1 kg/m2 Dr. Dago Emery MD Work Phone: 4(260)002-017701 [place] [address] 10-16-2024 20:13-0400 Body weight [address] Dago Emery MD Work Phone: 5(211)545-828901 [place] [address] 10-11-2024 15:05-0400 Body height 165.[address] Dago Emery MD Work Phone: 9(327)244-042701 [place] [address] 10-11-2024 15:05-0400 Body temperature 98.2 [degF] Dr. Dago Emery MD Work Phone: 2(496)357-211901 [place] [address] 10-11-2024 15:05-0400 Diastolic blood pressure 73 mm[Hg] Dr. Dago Emery MD Work Phone: 2(979)141-003401 [place] [address] 10-11-2024 15:05-0400 Heart rate 52 /min Dr. Dago Emery MD Work Phone: 0(970)041-875701 [place] [address] 10-11-2024 15:05-0400 Respiratory rate 16 /min Dr. Dago Emery MD Work Phone: 1(402)207-292301 [place] [address] 10-11-2024 15:05-0400 SaO2% (BldA) [Mass fraction] 98 % Dr. Dago Emery MD Work Phone: 3(126)246-937601 [place] [address] 10-11-2024 15:05-0400 Systolic blood pressure 169 mm[Hg] Dr. Dago Emery MD Work Phone: 8(698)902-983501 [place] [address] 09-20-2024 14:30-0400 Body height 165.[address] Dago Emery MD Work Phone: 3(538)602-762401 [place] [address] 09-20-2024 14:30-0400 Body mass index (BMI) [Ratio] 32.4 kg/m2 Dr. Dago Emery MD Work Phone: 9(366)754-686901 [place] [address] 09-20-2024 14:30-0400 Body weight 88.[address] Dago Emery MD Work Phone: 8(293)495-336701 [place] [address] 09-20-2024 14:30-0400 Diastolic blood pressure 73 mm[Hg] Dr. Dago Emery MD Work Phone: [facility] 09-20-2024 14:30-0400 Heart rate 56 /min Dr. Dago Emery MD Work Phone: [facility] 09-20-2024 14:30-0400 Respiratory rate 18 /min Dr. Dago Emery MD Work Phone: 6(334)563-577079 [place] [address] 09-20-2024 14:30-0400 SaO2% (BldA) [Mass fraction] 95 % Dr. Dago Emery MD Work Phone: 3(065)977-295379 [place] [address] 09-20-2024 14:30-0400 Systolic blood pressure 124 mm[Hg] Dr. Dago Emery MD Work Phone: 5(692)376-857201 [place] [address] 07-10-2024 13:45-0400 Body height 165.[address] Dago Emery MD Work Phone: 2(530)977-101801 [place] [address] 07-10-2024 13:45-0400 Body temperature 97.8 [degF] Dr. Dago Emery MD Work Phone: 2(053)145-129201 [place] [address] 07-10-2024 13:45-0400 Diastolic blood pressure 66 mm[Hg] Dr. Dago Emery MD Work Phone: 5(048)645-426601 [place] [address] 07-10-2024 13:45-0400 Heart rate 46 /min Dr. Dago Emery MD Work Phone: 5(998)636-176901 [place] [address] 07-10-2024 13:45-0400 Respiratory rate 16 /min Dr. Dago Emery MD Work Phone: [facility] 07-10-2024 13:45-0400 SaO2% (BldA) [Mass fraction] 98 % Dr. Dago Emery MD Work Phone: 8(267)602-607779 [place] [address] 07-10-2024 13:45-0400 Systolic blood pressure 104 mm[Hg] Dr. Dago Emery MD Work Phone: [facility] 02-22-2024 14:10-0500 Body weight 88.[address] Dago Emery MD Work Phone: 6(752)422-809579 [place] [address] 11-04-2022 14:40-0400 Body height 165.[address] Dago Emery Work Phone: 1(632)712-845201 [place] [address] 11-04-2022 14:40-0400 Body mass index (BMI) [Ratio] 34.2 kg/m2 Dr. Dago Emery Work Phone: 6(415)842-940501 [place] [address] 11-04-2022 14:40-0400 Body temperature 98 [degF] Dr. Dago Emery Work Phone: 8(010)280-928601 [place] [address] 11-04-2022 14:40-0400 Body weight 93.[address] Dago Emery Work Phone: 4(609)048-258401 [place] [address] 11-04-2022 14:40-0400 Diastolic blood pressure 74 mm[Hg] Dr. Dago Emery Work Phone: 7(620)343-982101 [place] [address] 11-04-2022 14:40-0400 Heart rate 51 /min Dr. Dago Emery Work Phone: 7(096)238-259901 [place] [address] 11-04-2022 14:40-0400 Respiratory rate 16 /min Dr. Dago Emery Work Phone: 4(035)739-308201 [place] [address] 11-04-2022 14:40-0400 SaO2% (BldA) [Mass fraction] 98 % Dr. Dago Emery Work Phone: 9(953)076-894601 [place] [address] 11-04-2022 14:40-0400 Systolic blood pressure 140 mm[Hg] Dr. Dago Emery Work Phone: 4(104)091-859901 [place] [address] 10-14-2022 12:50-0400 Body temperature 97.6 [degF] Dr. Dago Emery Work Phone: 9(007)549-154201 [place] [address] 10-14-2022 12:50-0400 Diastolic blood pressure 47 mm[Hg] Dr. Dago Emery Work Phone: 1(667)358-333179 [place] [address] 10-14-2022 12:50-0400 Heart rate 70 /min Dr. Dago Emery Work Phone: 1(845)352-749579 [place] [address] 10-14-2022 12:50-0400 Respiratory rate 18 /min Dr. Dago Emery Work Phone: 9(333)857-099979 [place] [address] 10-14-2022 12:50-0400 SaO2% (BldA) [Mass fraction] 94 % Dr. Dago Emery Work Phone: 0(484)116-757779 [place] [address] 10-14-2022 12:50-0400 Systolic blood pressure 141 mm[Hg] Dr. Dago Emery Work Phone: 0(886)476-693101 [place] [address] 10-13-2022 09:00-0400 Body mass index (BMI) [Ratio] 34.4 kg/m2 Dr. Dago Emery Work Phone: 0(833)530-926101 [place] [address] 10-13-2022 09:00-0400 Body weight 93.[address] Dago Emery Work Phone: 6(397)703-797301 [place] [address] 08-05-2022 13:49-0400 Body height 165.[address] Dago Emery Work Phone: 6(539)100-610501 [place] [address] 08-05-2022 13:49-0400 Body mass index (BMI) [Ratio] 34.2 kg/m2 Dr. Dago Emery Work Phone: 3(144)601-306301 [place] [address] 08-05-2022 13:49-0400 Body temperature 98.3 [degF] Dr. Dago Emery Work Phone: 6(460)088-143501 [place] [address] 08-05-2022 13:49-0400 Body weight 93.[address] Dago Emery Work Phone: 2(156)050-433001 [place] [address] 08-05-2022 13:49-0400 Diastolic blood pressure 83 mm[Hg] Dr. Dago Emery Work Phone: 1(788)782-971601 [place] [address] 08-05-2022 13:49-0400 Heart rate 45 /min Dr. Dago Emery Work Phone: 0(326)108-669401 [place] [address] 08-05-2022 13:49-0400 Respiratory rate 18 /min Dr. Dago Emery Work Phone: 7(245)577-529601 [place] [address] 08-05-2022 13:49-0400 SaO2% (BldA) [Mass fraction] 99 % Dr. Dago Emery Work Phone: [facility] 08-05-2022 13:49-0400 Systolic blood pressure 137 mm[Hg] Dr. Dago Emery Work Phone: [facility] 05-06-2022 14:19-0500 Body height 165.[address] Dago Emery Work Phone: [facility] 05-06-2022 14:19-0500 Body mass index (BMI) [Ratio] 35.5 kg/m2 Dr. Dago Emery Work Phone: [facility] 05-06-2022 14:19-0500 Body temperature 98.3 [degF] Dr. Dago Emery Work Phone: [facility] 05-06-2022 14:19-0500 Body weight 96.[address] Dago Emery Work Phone: [facility] 05-06-2022 14:19-0500 Diastolic blood pressure 72 mm[Hg] Dr. Dago Emery Work Phone: [facility] 05-06-2022 14:19-0500 Heart rate 46 /min Dr. Dago Emery Work Phone: [facility] 05-06-2022 14:19-0500 Respiratory rate 18 /min Dr. Dago Emery Work Phone: [facility] 05-06-2022 14:19-0500 SaO2% (BldA) [Mass fraction] 98 % Dr. Dago Emery Work Phone: [facility] 05-06-2022 14:19-0500 Systolic blood pressure 121 mm[Hg] Dr. Dago Emery Work Phone: [facility] 04-12-2022 08:38-0500 Diastolic blood pressure 94 mm[Hg] Dr. Dago Emery Work Phone: [facility] 04-12-2022 08:38-0500 Heart rate 60 /min Dr. Dago Emery Work Phone: [facility] 04-12-2022 08:38-0500 Respiratory rate 16 /min Dr. Dago Emery Work Phone: [facility] 04-12-2022 08:38-0500 SaO2% (BldA) [Mass fraction] 96 % Dr. Dago Emery Work Phone: [facility] 04-12-2022 08:38-0500 Systolic blood pressure 178 mm[Hg] Dr. Dago Emery Work Phone: 8(550)325-620480 [address] 04-12-2022 08:33-0500 Body height 165.[address] Dago Emery Work Phone: 2(766)856-815880 [address] 04-12-2022 08:33-0500 Body mass index (BMI) [Ratio] 36.3 kg/m2 Dr. Dago Emery Work Phone: 3(316)847-018579 [place] [address] 04-12-2022 08:33-0500 Body temperature 98.5 [degF] Dr. Dago Emery Work Phone: 9(550)345-850279 [place] [address] 04-12-2022 08:33-0500 Body weight 99.[address] Dago Emery Work Phone: 0(402)670-603279 [place] [address] 02-04-2022 14:20-0500 Body mass index (BMI) [Ratio] 34.4 kg/m2 Dr. Dago Emery Work Phone: [facility] 02-04-2022 14:20-0500 Body temperature 97.8 [degF] Dr. Dago Emery Work Phone: [facility] 02-04-2022 14:20-0500 Body weight 93.[address] Dago Emery Work Phone: [facility] 02-04-2022 14:20-0500 Diastolic blood pressure 79 mm[Hg] Dr. Dago Emery Work Phone: [facility] 02-04-2022 14:20-0500 Heart rate 51 /min Dr. Dago Emery Work Phone: [facility] 02-04-2022 14:20-0500 Respiratory rate 16 /min Dr. Dago Emery Work Phone: [facility] 02-04-2022 14:20-0500 SaO2% (BldA) [Mass fraction] 97 % Dr. Dago Emery Work Phone: [facility] 02-04-2022 14:20-0500 Systolic blood pressure 132 mm[Hg] Dr. Dago Emery Work Phone: [facility] 11-04-2021 13:59-0400 Body height 165.[address] Dago Emery Work Phone: [facility] Work Phone: 11-04-2021 13:59-0400 Body mass index (BMI) [Ratio] 34.4 kg/m2 Dr. Dago Emery Work Phone: [facility] Work Phone: 11-04-2021 13:59-0400 Body temperature 97.4 [degF] Dr. Dago Emery Work Phone: [facility] Work Phone: 11-04-2021 13:59-0400 Body weight [address] Dago Emery Work Phone: [facility] Work Phone: 11-04-2021 13:59-0400 Diastolic blood pressure 80 mm[Hg] Dr. Dago Emery Work Phone: [facility] Work Phone: 11-04-2021 13:59-0400 Heart rate 51 /min Dr. Dago Emery Work Phone: [facility] Work Phone: 11-04-2021 13:59-0400 Respiratory rate 16 /min Dr. Dago Emery Work Phone: [facility] Work Phone: 11-04-2021 13:59-0400 SaO2% (BldA) [Mass fraction] 97 % Dr. Dago Emery Work Phone: [facility] Work Phone: 11-04-2021 13:59-0400 Systolic blood pressure 130 mm[Hg] Dr. Dago Emery Work Phone: [facility] Work Phone: 04-25-2020 14:46-0500 Body mass index (BMI) [Ratio] 37.8 kg/m2 Dr. Dago Emery Work Phone: [facility] 04-25-2020 14:46-0500 Body temperature 98 [degF] Dr. Dago Emery Work Phone: [facility] 04-25-2020 14:46-0500 Body weight 99.[address] Dago Emery Work Phone: [facility] 04-25-2020 14:46-0500 Diastolic blood pressure 87 mm[Hg] Dr. Dago Emery Work Phone: [facility] 04-25-2020 14:46-0500 Heart rate 54 /min Dr. Dago Emery Work Phone: [facility] 04-25-2020 14:46-0500 Respiratory rate 17 /min Dr. Dago Emery Work Phone: [facility] 04-25-2020 14:46-0500 SaO2% (BldA) [Mass fraction] 97 % Dr. Dago Emery Work Phone: [facility] 04-25-2020 14:46-0500 Systolic blood pressure 155 mm[Hg] Dr. Dago Emery Work Phone: [facility] Encounters Encounter Date Encounter Type Care Provider Facility Start: 01-03-2025 ambulatory Efewongbe Oleghe OLS Fa cility:[facility] Start: 12-28-2024 ambulatory Efewongbe Oleghe OLS Fa cility:[facility] Start: 12-20-2024 ambulatory Efewongbe Oleghe OLS Fa cility:[facility] Start: 12-13-2024 End: 12-13-2024 ambulatory Fouzia Gaming RECORDS MANAGEMENT CLERK Facility:[facility] Start: 12-13-2024 ambulatory Irvin Mckenna OLS Fa cility:[facility] Start: 12-08-2024 ambulatory Efbeatris Mckenna OLS Fa cility:[facility] Start: 12-06-2024 ambulatory Irvin Mckenna OLS Fa cility:[facility] Start: 12-05-2024 End: 12-05-2024 ambulatory [facility] RECORDS MANAGEMENT CLERK Facility:[facility] Start: 11-30-2024 End: 11-30-2024 ambulatory [facility] RECORDS MANAGEMENT CLERK Facility:[facility] Start: 11-29-2024 ambulatory Irvin Mckenna OLS Fa cility:[facility] Start: 11-28-2024 End: 11-28-2024 ambulatory Dago Barnesok Facility:[facility] Start: 11-01-2024 Non-patient / Non-visit Pioleoncio Ortiz nd DO -[facility] Start: 11-01-2024 End: 11-01-2024 Admission to same day surgery center Pio Henderson DO -Endoscopy Work Phone: Start: 11-01-2024 End: 11-01-[address] Dago Emery MD Work Phone: -Endoscopy Start: 10-31-2024 Non-patient / Non-visit Pio Frie ms DO -[facility] Start: 10-21-2024 ambulatory Piojj Webb Facility :[facility] Start: 10-21-2024 End: 11-28-2024 Evaluation and management of inpatient Dr. Dago Emery MD -Transitional Care Unit Start: 10-20-2024 Non-patient / Non-visit Dr. Sofia giang MD -[facility] Work Phone: Start: 10-18-2024 ambulatory Dago Emery Facility:[facility] Start: 10-18-2024 End: 10-21-2024 Evaluation and management of inpatient Dr. Geo Rodriguez MD -Medical Surgical 3 Work Phone: Start: 10-18-2024 Non-patient / Non-visit Dr. Joselin Valente MD -[facility] Work Phone: Start: 10-17-2024 Non-patient / Non-visit Dr. Joselin Valente MD -[facility] Work Phone: Start: 10-16-2024 Non-patient / Non-visit Dr. Og UGALDE -[facility] Work Phone: Start: 10-16-2024 ambulatory Saulo Lacymegan Fac ility:[facility] Start: 10-11-[address] Cira Pate MD -[facility] Start: 10-11-2024 End: 10-11-2024 Patient encounter procedure Carolyn Ruvalcaba -[facility] Work Phone: Start: 10-11-2024 End: 10-11-[address] Dago Emery MD Work Phone: [facility] Start: 09-20-2024 End: 09-20-[address] Omero Armas MD -[facility] Work Phone: Start: 09-20-2024 End: 09-20-[address] Omero Armas MD [facility] Start: 09-20-2024 End: 09-20-[address] Dago Emery MD Work Phone: [facility] Start: 08-08-2024 [facility] Start: 08-01-2024 End: 08-01-2024 Non-patient / Non-visit Dr. Omero Armas MD -[facility] Work Phone: Start: 08-01-2024 End: 08-01-[address] Dago Emery MD Work Phone: [facility] Work Phone: Start: 08-01-2024 End: 08-01-[address] Dago Emery MD -Pulmonary Services/Neurology Work Phone: Start: 07-31-2024 End: 08-01-[address] Dago Emery MD Work Phone: [facility] Work Phone: Start: 07-31-2024 End: 07-31-[address] Dago Emery MD -[facility] Start: 07-31-2024 End: 07-31-2024 ambulatory Dago Corey Rupert Facility:[facility] Start: 07-10-[address] Cira Pate MD -[facility] Start: 07-10-2024 End: 07-10-2024 Patient encounter procedure Carolyn Ruvalcaba NP-Jack -[facility] Work Phone: Start: 07-10-2024 End: 07-10-2024 ambulatory Dago Chi Rupert Facility:[facility] Start: 02-22-2024 End: 02-22-2024 ambulatory Dago Chi Rupert Facility:[facility] Start: 01-31-2024 End: 01-31-2024 ambulatory [facility] Facility:[facility] Start: 01-25-2023 End: 01-25-[address] Dago Emery Work Phone: [facility] Work Phone: Start: 01-25-2023 End: 01-25-[address] Dago Emery Work Phone: [facility]-Laboratory, Phy [facility] 3rd Flr Start: 11-04-[address] Dago hays Work Phone: [facility] Start: 11-04-2022 End: 11-04-[address] Dago Emery Work Phone: [facility] Work Phone: Start: 09-25-2022 End: 10-14-2022 Evaluation and management of inpatient Dr. Dago Emery Work Phone: [facility]-Transitional Care Unit Start: 09-04-2022 End: 09-04-[address] Dago Emery Work Phone: [facility] Work Phone: Start: 09-04-2022 End: 09-04-[address] Dago Emery Work Phone: [facility] Start: 08-05-2022 End: 08-05-[address] Dago Emery Work Phone: [facility] Start: 08-05-[address] Dago hays Work Phone: [facility] Start: 07-20-2022 End: 07-20-[address] Dago Emery Work Phone: [facility] Work Phone: Start: 07-20-2022 End: 07-20-[address] Dago Emery Work Phone: [facility]rd Azr Start: 05-06-[address] Dago hays Work Phone: [facility] Start: 05-06-2022 End: 05-06-[address] Dago Emery Work Phone: [facility] Start: 04-12-2022 End: 04-12-2022 Emergency department patient visit Dr. Dago Emery Work Phone: [facility]-Emergency Department Start: 02-04-[address] Dago hays Work Phone: [facility] Start: 02-04-2022 End: 02-04-[address] Dago Emery Work Phone: [facility] Start: 01-19-2022 End: 01-19-[address] Dago Emery Work Phone: [facility] Work Phone: Start: 01-19-2022 End: 01-19-[address] Dago Emery Work Phone: [facility]-Laboratory, Phy Office 3rd Flr Start: 11-04-[address] Dago hays Work Phone: [facility] Start: 11-04-2021 End: 11-04-[address] Dago Emery Work Phone: [facility] Procedures Date Procedure Procedure Detail Performing Clinician Start: 11-24-[address] Dago hays MD Work Phone: Start: 11-13-2024 Viral [...] Author Start: 11-28-2024 Development of care plan [facility] Start: 11-28-2024 Patient discharge [facility] Start: 11-21-2024 [facility] Start: 11-17-2024 Developing a treatment plan [facility] Start: 11-14-2024 Speech therapy management [facility] Start: 11-03-2024 Elevation of affected extremity [facility] Start: 11-01-2024 Endoscopy upper small intestine w/biopsy SMALL BOWEL ENDOSCOPY/BIOPSY [facility] Start: 11-01-2024 Patient discharge [facility] Start: 10-31-2024 Speech therapy assessment [facility] Start: 10-31-2024 Referral to gastroenterology service [facility] Start: 10-30-2024 Verification routine [facility] Start: 10-25-2024 [facility] Start: 10-22-2024 Developing a treatment plan [facility] Start: 10-21-2024 Chemotherapy care management [facility] Start: 10-21-2024 Wound care [facility] Start: 10-21-2024 Recommendation to continue with treatment [facility] Start: 10-21-2024 Admission procedure [facility] Start: 10-21-2024 Introduction of urinary catheter [facility] Start: 10-21-2024 Measuring intake and output [facility] Start: 10-21-2024 Patient referral to dietitian [facility] Start: 10-21-2024 Referral to occupational therapist [facility] Start: 10-21-2024 Referral to service [facility] Start: 10-21-2024 Vital signs measurements [facility] Start: 10-21-2024 End: 10-21-2024 [facility] Start: 10-21-2024 Patient discharge [facility] Start: 10-18-2024 Admission procedure [facility] Start: 10-18-2024 Care regimes management [facility] Start: 10-17-2024 [facility] Start: 10-16-2024 Application of intermittent pneumatic compression device [facility] Start: 10-16-2024 Following clinical pathway protocol [facility] Start: 10-16-2024 Provision of overbed trapeze [facility] Start: 10-16-2024 Ambulation therapy management [facility] Start: 10-16-2024 Assessment of risk of venous thromboembolism [facility] Start: 10-16-2024 Catheterization of vein [facility] Start: 10-16-2024 Exercises [facility] Start: 10-16-2024 Neurovascular assessment [facility] Start: 10-16-2024 Procedure discontinued [facility] Start: 10-16-2024 Recommendation to continue with treatment [facility] Start: 10-16-2024 Referral to occupational therapist [facility] Start: 10-16-2024 Referral to service [facility] Start: 10-16-2024 Vital signs measurements [facility] Start: 10-16-2024 End: 10-16-2024 [facility] Start: 10-16-2024 Application of device [facility] Start: 10-16-2024 Application of elastic bandage [facility] Start: 10-16-2024 Introduction of urinary catheter [facility] Start: 10-16-2024 Measuring intake and output [facility] Start: 10-16-2024 Patient education [facility] Start: 10-16-2024 Provision of activity privileges [facility] Start: 10-16-2024 Wound care [facility] Start: 10-16-2024 Admission procedure [facility] Start: 10-16-2024 Consultation [facility] Start: 10-11-2024 CBC W Auto Differential panel - Blood [facility] Start: 10-11-2024 [facility] Start: 07-31-2024 Electrocardiographic procedure [facility] Start: 10-14-2022 Patient discharge [facility] Start: 10-13-2022 Development of care plan [facility] Start: 10-09-2022 Referral to service [facility] Start: 10-09-2022 [facility] Start: 10-04-2022 [facility] Start: 10-04-2022 [facility] Start: 09-26-2022 Developing a treatment plan [facility] Start: 09-26-2022 Development of care plan [facility] Start: 09-26-2022 Application of device [facility] Start: 09-25-2022 Wound care [facility] Start: 09-25-2022 Admission procedure [facility] Start: 09-25-2022 Measuring intake and output [facility] Start: 09-25-2022 Patient referral to dietitian [facility] Start: 09-25-2022 Referral to occupational therapist [facility] Start: 09-25-2022 Referral to service [facility] Start: 09-25-2022 Vital signs measurements [facility] Start: 09-25-2022 End: 09-25-2022 [facility] Start: 07-21-2018 [facility] Anion gap in Serum or Plasma [facility] Anion gap in Serum or Plasma [facility] Anion gap in Serum or Plasma [facility] Anion gap in Serum or Plasma [facility] Anion gap in Serum or Plasma [facility] Basic metabolic 2008 panel with ionized calcium - Serum or Plasma [facility] BUN/Creatinine ratio [facility] BUN/Creatinine ratio [facility] BUN/Creatinine ratio [facility] BUN/Creatinine ratio [facility] BUN/Creatinine ratio [facility] Calcium [Mass/volume ] in Serum or Plasma [facility] Calcium [Mass/volume ] in Serum or Plasma [facility] Calcium [Mass/volume ] in Serum or Plasma [facility] Calcium [Mass/volume ] in Serum or Plasma [facility] Calcium [Mass/volume ] in Serum or Plasma [facility] Carbon dioxide, tota l [Moles/volume] in Central venous blood [facility] Carbon dioxide, tota l [Moles/volume] in Central venous blood [facility] Carbon dioxide, tota l [Moles/volume] in Central venous blood [facility] Carbon dioxide, tota l [Moles/volume] in Central venous blood [facility] Carbon dioxide, tota l [Moles/volume] in Central venous blood [facility] CBC W Auto Different ial panel - Blood [facility] Work Phone: CBC W Auto Different ial panel - Blood [facility] CBC W Auto Different ial panel - Blood [facility] CBC W Auto Different ial panel - Blood [facility] CBC W Auto Different ial panel - Blood [facility] CBC W Auto Different ial panel - Blood [facility] CBC W Auto Different ial panel - Blood [facility] metabo lic 1999 panel - Serum or Plasma [facility] Comprehensive metabo lic 1999 panel - Serum or Plasma [facility] Creatinine [Mass/vol ume] in Serum or Plasma [facility] Creatinine [Mass/vol ume] in Serum or Plasma [facility] Creatinine [Mass/vol ume] in Serum or Plasma [facility] Creatinine [Mass/vol ume] in Serum or Plasma [facility] Creatinine [Mass/vol ume] in Serum or Plasma [facility] Erythrocyte mean cor puscular volume determination [facility] Erythrocyte mean cor puscular volume determination [facility] Erythrocyte mean cor puscular volume determination [facility] Erythrocyte mean cor puscular volume determination [facility] Erythrocyte mean cor puscular volume determination [facility] Glucose [Mass/volume ] in Serum or Plasma [facility] Glucose [Mass/volume ] in Serum or Plasma [facility] Glucose [Mass/volume ] in Serum or Plasma [facility] Glucose [Mass/volume ] in Serum or Plasma [facility] Glucose [Mass/volume ] in Serum or Plasma [facility] Hematocrit [Volume F raction] of Blood [facility] Hematocrit [Volume F raction] of Blood [facility] Hematocrit [Volume F raction] of Blood [facility] Hematocrit [Volume F raction] of Blood [facility] Hematocrit [Volume F raction] of Blood [facility] Hemoglobin [Mass/vol ume] in Blood [facility] Hemoglobin [Mass/vol ume] in Blood [facility] Hemoglobin [Mass/vol ume] in Blood [facility] Hemoglobin [Mass/vol ume] in Blood [facility] Hemoglobin [Mass/vol ume] in Blood [facility] Leukocytes [#/volume] in Blood [facility] Leukocytes [#/volume] in Blood [facility] Leukocytes [#/volume] in Blood [facility] Leukocytes [#/volume] in Blood [facility] Leukocytes [#/volume] in Blood [facility] Mean corpuscular hem oglobin concentration determination [facility] Mean corpuscular hem oglobin concentration determination [facility] Mean corpuscular hem oglobin concentration determination [facility] Mean corpuscular hem oglobin concentration determination [facility] Mean corpuscular hem oglobin concentration determination [facility] Mean corpuscular hem oglobin determination [facility] Mean corpuscular hem oglobin determination [facility] Mean corpuscular hem oglobin determination [facility] Mean corpuscular hem oglobin determination [facility] Mean corpuscular hem oglobin determination [facility] Measurement of renal function [facility] Measurement of renal function [facility] Measurement of renal function [facility] Measurement of renal function [facility] Measurement of renal function [facility] Neutrophil count [facility] Neutrophil count [facility] Neutrophil count [facility] Neutrophil count [facility] Neutrophil count [facility] Neutrophil percent d ifferential count [facility] Neutrophil percent d ifferential count [facility] Neutrophil percent d ifferential count [facility] Neutrophil percent d ifferential count [facility] Neutrophil percent d ifferential count [facility] Patient Education ED [facility] Work Phone: Patient referral [facility] Work Phone: Platelets [#/volume] in Blood [facility] Platelets [#/volume] in Blood [facility] Platelets [#/volume] in Blood [facility] Platelets [#/volume] in Blood [facility] Platelets [#/volume] in Blood [facility] Potassium measurement [facility] Potassium measurement [facility] Potassium measurement [facility] Potassium measurement [facility] Potassium measurement [facility] Red blood cell count [facility] Red blood cell count [facility] Red blood cell count [facility] Red blood cell count [facility] Red blood cell count [facility] Red cell distributio n width determination [facility] Red cell distributio n width determination [facility] Red cell distributio n width determination [facility] Red cell distributio n width determination [facility] Red cell distributio n width determination [facility] Serum chloride measurement [facility] Serum chloride measurement [facility] Serum chloride measurement [facility] Serum chloride measurement [facility] Serum chloride measurement [facility] Sodium measurement [facility] Sodium measurement [facility] Sodium measurement [facility] Sodium measurement [facility] Sodium measurement [facility] Urea nitrogen [Mass/ volume] in Serum or Plasma [facility] Urea nitrogen [Mass/ volume] in Serum or Plasma [facility] Urea nitrogen [Mass/ volume] in Serum or Plasma [facility] Urea nitrogen [Mass/ volume] in Serum or Plasma [facility] Urea nitrogen [Mass/ volume] in Serum or Plasma [facility] Immunizations Immunization Date Immunization Notes Care Provider Fa [facility] 11-23-2020 Covid (Moderna) Dr. Dago Emery Work Phone: [facility] 10-26-2020 Covid (Moderna) Dr. Dago Emery Work Phone: [facility] 01-16-2020 influenza, injectabl e, quadrivalent, preservative free Dr. Dago Emery Work Phone: [facility] 11-23-[address] Dago Emery Work Phone: [facility] 09-07-[address] Dago Emery Work Phone: [facility] 01-12-2019 influenza, injectabl e, quadrivalent, preservative free Dr. Dago Emery Work Phone: [facility] 12-20-2008 pneumococcal vaccine , unspecified formulation Dr. Dago Emery Work Phone: [facility] 07-21-2008 pneumococcal polysaccharide vaccine, [address] Dago Emery Work Phone: [facility] Payers Date Payer Category Payer Self-pay [id number] 2018 Medicare [id number] 2018 Private Health Insurance [id number] Unknown [facility] [id number] Unknown [id number] 2.16.840.1.398553.3.579.2.462 Unknown [id number] 2.16.840.1.857130.3.579.2.462 Unknown [id number] 2.16.840.1.966680.3.579.2.462 Unknown [id number] 2.16.840.1.370763.3.579.2.462 Unknown [id number] 2.16.840.1.056672.3.579.2.462 Unknown [id number] 2.16.840.1.034657.3.579.2.462 Unknown [id number] 2.16.840.1.547942.3.579.2.462 Unknown [id number] 2.16.840.1.388205.3.579.2.462 Unknown [id number] 2.16.840.1.634404.3.579.2.462 Unknown [id number] 2.16.840.1.328371.3.579.2.462 Unknown [id number] 2.16.840.1.432258.3.579.2.462 Unknown [id number] 2.16.840.1.563096.3.579.2.462 Unknown [id number] 2.16.840.1.269654.3.579.2.462 Unknown [id number] 2.16.840.1.838065.3.579.2.462 Unknown [id number] 2.16.840.1.970223.3.579.2.462 Unknown [id number] 2.16.840.1.924766.3.579.2.462 Unknown [id number] 2.16.840.1.134427.3.579.2.462 Unknown [id number] 2.16.840.1.222356.3.579.2.462 Unknown [id number] 2.840.1.818170.3.579.2.462 Unknown [id number] 2.16840.1.993466.3.579.2.462 Unknown [id number] 2.840.1.339187.3.579.2.462 Unknown [id number] 2.840.1.027070.3.579.2.462 Unknown [id number] 2.840.1.622644.3.579.2.462 Unknown [id number] 2.840.1.680073.3.579.2.462 Unknown [id number] 2.16840.1.680954.3.579.2.462 Unknown [id number] 2.840.1.060359.3.579.2.462 Unknown [id number] 2.840.1.533202.3.579.2.462 Unknown [id number] 2.840.1.112462.3.579.2.462 Unknown [id number] 2.840.1.961223.3.579.2.462 Unknown [id number] 2.840.1.534418.3.579.2.462 Social History Date Type Detail Facility Start: 07-24-2020 End: 09-25-2022 Tobacco smoking status NHIS Unknown if ever smoked [facility] Start: 04-16-2014 None [facility] Start: 12-02-2018 Non-smoker [facility] Start: 1945 Sex Assigned At Female [facility] Start: 07-31-2024 End: 11-01-2024 Tobacco smoking status NHIS Never smoked tobacco (finding) [facility] Not [facility] Medical Equipment Procedure Code Equipment Code Equipment Origin al Text Equipment Identifier Dates ([id number]) Metal-backed pat jason prosthesis ()[id number] [id number] FDA Start: 09-23-2022 ([id number]) Coated knee femu r prosthesis ()[id number] [id number])[id number] FDA Start: 09-23-2022 ([id number]) Coated knee tibi a prosthesis ()[id number] [id number] FDA Start: 09-23-2022 ([id number]) Tibial insert ()[id number] [id number])[id number] FDA Start: 09-23-2022 (160723205) Uncoated knee fe mur prosthesis, metallic ()[id number] [id number] FDA Start: 10-16-2024 Tibial insert ()[id number] [id number])[id number] FDA Start: 10-16-2024 ([id number]) Polyethylene pat jason prosthesis ()[id number] [id number])[id number] FDA Start: 10-16-2024 (877079827) Uncoated knee ti jitendra prosthesis, metallic ()[id number] 17)[id number])[id number] FDA Start: 10-16-2024 (543465495) Knee femur stem prosthesis ()[id number] 17)[id number] [id number] FDA Start: 10-16-2024 (293017741) Knee femur stem prosthesis ()[id number] 17)[id number] [id number] FDA Start: 10-16-2024 (013794978) Polymer orthopae dic cement restrictor, non-bioabsorbable, sterile ()[id number] 17)[id number])[id number] FDA Start: 10-16-2024 Orthopaedic ceme nt, non-antimicrobial ()[id number]( )[id number])[id number] FDA Start: 10-16-2024 Goals Date Patient Goal Desired Activity /State Functional Status Date Assessment Result Facility 11-28-2024 Functional status Chair [facility] Work Phone: 11-27-2024 Functional status Standard [facility] Work Phone: 11-01-2024 Functional status Bedrest [facility] Work Phone: 10-31-2024 Functional status Standard [facility] Work Phone: 10-21-2024 Functional status Stand and pivot [facility] Work Phone: 10-14-2022 Functional status Activity Ability Indepe ndent [facility] Work Phone: 10-13-2022 Functional status Ambulates;Up ad aldo [facility] Work Phone: 10-12-2022 Functional status Tolerates Activity Well [facility] Work Phone: Mental Status Date Assessment Result Facility 11-28-2024 Cognitive function Voice/Name [facility] Work Phone: 11-18-2024 Cognitive function Appropriate;[facility] Work Phone: 11-01-2024 Cognitive function Voice/Name [facility] Work Phone: 10-31-2024 Cognitive function Appropriate;[facility] Work Phone: 10-21-2024 Cognitive function Voice/Name [facility] Work Phone: 10-14-2022 Cognitive function Voice/Name [facility] Work Phone: 10-07-2022 Cognitive function Appropriate [facility] Work Phone: Clinical Notes 07-10-2024 to 11-24-2024 Note Date & Type Note Facility 11-24-2024 Discharge summary Note Date/Time November 24, 2024 2:01pm [facility] Medical Records Department [address] [place] [address] Discharge Summary 11/24/24 1351 MR#: [id number] Acct: [id number] Name: BERNICE HASSAN Rep #:[id number] : 1945 79 From: Dago Emery MD PCP: Dr. Dago Emery MD Status:ADM I N Location: [place] [address] Providers Date of Admission: 10/21/24 Primary Care Physician: Dr. Dago Emery MD Consultations 10/31/24 07:27 Consult: Gastroenterology Routine Consulting Provider: [facility] Reason for Consult: Anemia, +Hemoccult. EMERGENT [...] BID for 1 month. Discharge 11/28/2024 to [facility], [facility], private pay, part B therapies. Physical [...] % (Auto) 64.5, Lymph % (Auto) 27.0, [place] % (Auto) 5.3, Eos % (Auto) 2.2, [...] instructions: No Additional Instructions: Discharge 11/28/2024 to [facility], intermediate, private pay, part B therapies. Please Follow Up With: JOEY POTTS (ORTHO) When: As scheduled. Meaningful Use Info Meaningful Use Meaningful Use Diagnoses (Choose all that apply): None applicable Discharge Plan Admission Admit Date/Time: 10/21/24 14:09 Primary Reason for Your Visit: Debility. Attending Provider: Dago Emery Chi Primary Care Provider: Dago Emery Chi Instructions Additional Instructions / Restrictions: Discharge 11/28/2024 to [facility], intermediate, private pay, part B therapies. [...] can be placed): NonSkilled NH/Intermed Care 11/24/24 140 <Electronically signed by Dago Emery MD> Cosigner Signature (if applicable): CC: Dr. Dago Emery MD~ Signed [facility] Work Phone: 1(530) 166-806709-05-2025 Discharge summary Author Dago Emery [facility] Note Date/Time November 24, 2024 2:01pm [facility] Medical Records Department [address] [place] [address] Transfer to [facility] MR#: [id number] Acct: [id number] Name: BERNICE HASSAN Rep #:[id number] : 1945 79 From: Dago Emery MD PCP: Dr. Dago Emery MD Status:ADM I N Certification of patient admission REQUIRED AT TIME OF ADMISSION. I CERTIFY THAT POST-HOSPITAL ECF SERVICES ARE REQUIRED TO BE GIVEN ON AN IN-PATIENT BASIS BECAUSE OF THE ABOVE NAMED PATIENT'S NEED FOR [facility] CARE ON A CONTINUING BASIS FOR THE CONDITION(S) FOR WHICH HE/SHE WAS RECEIVING IN-PATIENT HOSPITAL SERVICES PRIOR TO HIS/HER TRANSFER TO THE [facility]. 11/24/24 1401<Electronically signed by Dago Emery MD> [...] Additional Instructions / Restrictions: Discharge 11/28/2024 to [facility], intermediate, private pay, part B [...] applicable): CC: Dr. Dago Emery MD ~ [facility] Work Phone: 1(699) 804-551309-05-2025 Discharge summary [facility] Medical Records Department [address] [place] [address] Discharge Summary 11/24/24 1351 MR#: [id number] Acct: [id number] Name: BERNICE HASSAN Rep #:[id number] : 1945 79 From: Dago Emeyr MD PCP: Dr. Dago Emery MD Status:ADM I N Location: [place] [address] Providers Date of Admission: 10/21/24 Primary Care Physician: Dr. Dago Emery MD Consultations 10/31/24 07:27 Consult: Gastroenterology Routine Consulting Provider: [facility] Reason for Consult: Anemia, +Hemoccult. EMERGENT [...] BID for 1 month. Discharge 11/28/2024 to [facility], [facility], private pay, part B therapies. Physical [...] % (Auto) 64.5, Lymph % (Auto) 27.0, [place] % (Auto) 5.3, Eos % (Auto) 2.2, [...] instructions: No Additional Instructions: Discharge 11/28/2024 to [facility], intermediate, private pay, part B therapies. Please Follow Up With: JOEY POTTS (ORTHO) When: As scheduled. Meaningful Use Info Meaningful Use Meaningful Use Diagnoses (Choose all that apply): None applicable Discharge Plan Admission Admit Date/Time: 10/21/24 14:09 Primary Reason for Your Visit: Debility. Attending Provider: Dago Emery Chi Primary Care Provider: Dago Emery Chi Instructions Additional Instructions / Restrictions: Discharge 11/28/2024 to [facility], intermediate, private pay, part B therapies. [...] applicable): CC: Dr. Dago Emery MD~ Signed [facility]09-05-2025 Discharge summary [facility] Medical Records Department [address] [place] [address] Transfer to [facility] Care MR#: [id number] Acct: [id number] Name: BERNICE HASSAN Rep #:[id number] : 1945 79 From: Dago Emery MD PCP: Dr. Dago Emery MD Status:ADM I N Certification of patient admission REQUIRED AT TIME OF ADMISSION. I CERTIFY THAT POST-HOSPITAL ECF SERVICES ARE REQUIRED TO BE GIVEN ON AN IN-PATIENT BASIS BECAUSE OF THE ABOVE NAMED PATIENT'S NEED FOR [facility] CARE ON A CONTINUING BASIS FOR THE CONDITION(S) FOR WHICH HE/SHE WAS RECEIVING IN-PATIENT HOSPITAL SERVICES PRIOR TO HIS/HER TRANSFER TO THE [facility]. 11/24/24 1401 Diet Diet Order/Speech Therapy: INPATIENT [...] Additional Instructions / Restrictions: Discharge 11/28/2024 to [facility], [facility], private pay, part B therapies. Discharge [...] applicable): CC: Dr. Dago Emery MD ~ [facility]09-05-2025 [facility]08-25-2025 Progress note Author Dago Emery [facility] Note Date/Time November 13, 2024 7: 55pm [facility] Medical Records Department [address] [place] [address] Progress Note - [facility] 11/13/241948 MR#: [id number] Acct: [id number] Name: BERNICE HASSAN Rep #:[id number] : 1945 79 From: Dago Emery MD PCP: Dr. Dago Emery MD Status:ADM I N Location: [place] [address] Subjective Subjective Patient seen, examined for regulatory visit. She has no new complaints. She issitting in recliner with her left leg elevated. She appears bored. She is resigned to going to [facility] once insurances cuts her. 11/01/2024 Dr. Webb [...] Cosigner Signature (if applicable): CC: ~ Signed [facility] Work Phone: 1(258) 559-287208-25-2025 Progress note [facility] Medical Records Department [address] [place] [address] Progress Note - [facility] 11/13/241948 MR#: [id number] Acct: [id number] Name: BERNICE HASSAN Rep #:[id number] : 1945 79 From: Dago Emery MD PCP: Dr. Dago Emery MD Status:ADM I N Location: [place] [address] Subjective Subjective Patient seen, examined for regulatory visit. She has no new complaints. She issitting in recliner with her left leg elevated. She appears bored. She is resigned to going to [facility] once insurances cuts her. 11/01/2024 Friend EGD: Impression: - Normal esophagus. - Mild [...] Cosigner Signature (if applicable): CC: ~ Signed [facility]08-15-2025 Radiology Diagnostic study note [facility] Imaging Services [address] [place], [place] [address] Ankle min 3 Views MR#: [id number] Acct: [id number] Name: BERNICE HASSAN Rep #: [id number] : 1945 F 79 From: Lynda Batres MD PCP: Dr. Dago Emery MD Status: ADM I N Study:Ankle min 3 Views Date of Exam: Exam# [id number] Ordering Dr: Grayson Rodriguez MD PROCEDURE: ANKLE [...] fracture deformity of distal fibula. Reading Location: [id number] CC: Dr. Geo Rodriguez MD; Dr. Dago Emery MD ~ Recruiting Scheduler: Signed [facility]08-13-2025 Consult note [facility] Medical Records Department [address] [place] [address] Anesthesia Postop Eval II 11/01/24 1633 MR#: [id number] Acct: [id number] Name: BERNICE HASSAN Rep #:[id number] : 1945 79 From: Dinorah Headley COVERSTITCH MACHINE OPERATOR PCP: Dr. Dago Emery MD Status:REG S DC Y Race: C Location: [place] [address]- Anesthesia Postop Eval I Sum Postop Eval Completion status Anesthesia document: Postop Eval 1 completed: Yes Anesthesia Postop Eval I Summary Anesthesia Postop Eval I Summary: Anesthesia Postop Eval I: Assessment Summary Airway patent Yes 11/01/24 16:13 COVERSTITCH MACHINE OPERATOR.JBLOU Spontaneous unlabored Yes 11/01/24 16:13 COVERSTITCH MACHINE OPERATOR.JBLOU respirations Mental status Awake,Calm 11/01/24 16:13 COVERSTITCH MACHINE OPERATOR.JBLOU nausea No 11/01/24 16:13 COVERSTITCH MACHINE OPERATOR.JBLOU Vomiting No 11/01/24 16:13 COVERSTITCH MACHINE OPERATOR.JBLOU Anesthesia Postop Eval I: Fluid Summary Crystalloid volume administer 200 11/01/24 16:13 COVERSTITCH MACHINE OPERATOR.JBLOU (ml) Colloids volume administered ( ml) Blood Product volume administered (ml) Total IV fluid infused 200 11/01/24 16:13 COVERSTITCH MACHINE OPERATOR.JBLOU Anesthesia Postop Eval I: Summary Notes Anesthesia Complication No 11/01/24 16:13 COVERSTITCH MACHINE OPERATOR.JBLOU Anesthesia Complication Comment: Post-operative progress note Anesthesia: Postop Eval II Evaluation Mental status: Awake Pain Level: 0 nausea: No Vomiting: No 11/01/24 1633 a COVERSTITCH MACHINE OPERATOR> Date _ Dinorah Headley COVERSTITCH MACHINE OPERATOR Cosigner Signature: Date CC: ~ Signed [facility]08-13-2025 Procedure note [facility] Medical Records Department [address] [place] [address] EGD Report MR#: [id number] Acct: [id number] Name: BERNICE HASSAN Rep #:[id number] : 1945 79 From: Pio Webb DO [...] present medications. Procedure Code(s): --- Professional --- 58493, Small intestinal endoscopy, enteroscopy beyond second portion of duodenum, not including ileum; with biopsy, single or multiple CPT copyright 2021 [employer]. All rights reserved. The codes documented in this report are preliminary and upon mobile marketing manager review may be revised to meet current compliance requirements. Pio Webb DO 11/01/2024 4:13:52 PM This report has been signed electronically. Number of Addenda: 0 Note Initiated On: 11/01/2024 3:55 PM 11/01/24 1614 Date _ Pio Kaur Signature: Date (if indicated) CC: Dr. Dago Emery MD; Pio Webb DO ~ Date Dictated: 11/01/24 3885 Date Transcribed: Recruiting Scheduler: RF Signed [facility]08-13-2025 Procedure note [facility] Medical Records Department [address] [place] [address] Provation Physician Letter MR#: [id number] Acct: [id number] Name: BERNICE HASSAN Rep #:[id number] : 1945 79 From: Pio Webb DO PCP: Dr. Dago Emery MD Status:REG S DC 11/01/2024 Dago Emery MD [address] [place] [address] Re : Upper GI endoscopy procedure for [...] signed electronically. 11/01/24 1614 Date _ Pio Kaur Signature: Date (if indicated) CC: Dr. Dago Emery MD; DO Kelsi Lucia Date Dictated: 11/01/24 1555 Date Transcribed: Recruiting Scheduler: RF Signed [facility]08-13-2025 Consult note [facility] Medical Records Department [address] [place] [address] Anesthesia Postop Eval I 11/01/24 1613 MR#: [id number] Acct: [id number] Name: BERNICE HASSAN Rep #:[id number] : 1945 79 From: Franklyn CHAMBERS PCP: Dr. Dago Emery MD Status:REG S DC Y Race: C Location: [place] [address] Anesthesia: Postop Eval I Current Vital Signs [...] Postop Eval 1 completed: Yes 11/01/24 1613 COVERSTITCH MACHINE OPERATOR> Date _ Franklyn Lopez COVERSTITCH MACHINE OPERATOR Cosigner Signature: Date CC: ~ Signed [facility]08-13-2025 Consult note [facility] Medical Records Department [address] [place] [address] Pre-Anesthesia Evaluation 11/01/24 1539 MR#: [id number] Acct: [id number] Name: BERNICE HASSAN Rep #:[id number] : 1945 79 From: Avery Crocker PCP: Dr. Dago Emery MD Status:REG S DC Y Race: C Location: [place] [address] ASA Classification* ASA Classification ASA Classification: 3 [...] lab: CBC WBC 4.7 K/mm3 (4.4-11.0) 10/27/24 05:10/27/24 RBC 2.16 M/mm3 (4.2-5.4) L 10/27/24 05:29 10/27/24 Hgb 8.4 g/dL (12.0-15.0) L 10/31/24 06:55 10/31/24 Hct 24.8 % (37-47) L 10/31/24 06:55 10/31/24 Plt Count 230 K/mm3 (150-450) 10/27/24 05:29 10/27/24 CHEMISTRY Potassium 4.5 mmol/L (3.3-5.1) 10/27/24 05:29 10/27/24 Sodium 133 mmol/L (133-145) 10/27/24 05:10/27/24 Magnesium 2.3 mg/dL (1.5-2.2) H 07/31/24 14:22 07/31/24 BUN 28 mg/dL (4-19) H 10/27/24 05:29 10/27/24 Creatinine 1.16 mg/dL (0.70-1.20) 10/27/24 05:10/27/24 Glucose 85 mg/dL (70-99) 10/27/24 05:10/27/24 POC Glucose 120 mg/dL (74-106) H 10/19/24 12:59 10/19/24 TSH 1.470 uIU/mL (0.300-4.200) 07/31/24 14:22 07/20 05/16 COAG PT 12.6 SECONDS (11.7-14.9) 07/31/24 14:22 Pre-Assessment Diagnosis/Proposed Procedure Planned Operative Procedure(s): EGD Anesthesia History Anesthesia History - associate team physician: Anesthesia History - associate team physician Hx Hospitalization Yes 11/01/24 15:07 Any Problems [...] take am of surgery PONV PONV - associate team physician: PONV - associate team physician Female Yes 11/01/24 15:07 HX of Motion [...] 11/01/24 15:07 Respiratory Assessment Respiratory Assessment - associate team physician: Respiratory Tract Infection Hx - associate team physician Hx Respiratory Tract Infection No 11/01/24 15:07 STOP Sleep Apnea STOP Sleep Apnea - associate team physician: STOP Sleep Apnea - associate team physician Hx Hypertension Yes 11/01/24 15:07 Hx Sleep [...] Tobacco Use History Tobacco Use History - associate team physician: Tobacco Use History - associate team physician Tobacco Use Smoking Status Never smoker 11/01/24 15:07 Hx Tobacco Use No 11/01/24 15:07 Years Smoking Packs Smoked per Day Smoking Cessation Date was within the last 15 years Hx Smoking Cessation Date Hx Smoking Cessation Counseling Hematologic Medial History Hematologic Hx - associate team physician: Hematologic Medical Hx - munitions handler Hx of Blood Transfusion No 11/01/24 15:07 [...] confused, unrespo /Reproduction History /Reproductive History - associate team physician: /Reproductive Hx- associate team physician Hx Now Gestational Age (in weeks): EDC: [...] surgery Social History household members: [facility] Smoking Status: Never smoker second hand exposure: No alcohol intake: never substance use type: does not use justice/christian: Restoration seatbelt use: always do you feel safe at home: Yes Review of Systems (Anesthesia) ROS Narrative System reviewed and no additional complaints, except as documented. 11/01/24 1603 MD> Date _ Avery Rod MD Cosigner Signature: Date CC: ~ Signed [facility]08-13-2025 History and physical note [facility] Medical Records Department [address] [place] [address] History & Physical Exam 11/01/24 1523 MR#: [id number] Acct: [id number] Name: BERNICE HASSAN Rep #:[id number] : 1945 79 From: Pio Webb DO PCP: Dr. Dago Emery MD Status:REG S DC Location: [place] [address] HPI - General General Date of Admission: [...] part of recently but thelast 5 years. [facility] Medical History Cardiology follow-up encounter Wears glasses [...] never substance use type: does not use justice/christian: Restoration seatbelt use: always do you feel safe [...] Microbiology 10/31/24 03:40 Stool Stool Occult Blood (BERA) - Final Occult Blood Positive Assessment & [...] Dago Emery MD; Pio Webb DO~ Signed [facility]13[facility] Consult note Author Pio Webb [facility] Note Date/Time October 31, 2024 9: 58am [facility] Medical Records Department [address] [place] [address] Consultation - GI 10/31/24 0951 MR#: [id number] Acct: [id number] Name: BERNICE HASSAN Rep #:[id number] : 1945 79 From: Pio Webb DO PCP: Dr. Dago Emery MD Status:ADM I N Location: [place] [address] HPI Consult Data Date of Consult: 10/31/24 [...] part of recently but thelast 5 years. [facility] Medical History Cardiology follow-up encounter Wears glasses [...] never substance use type: does not use justice/christian: Restoration seatbelt use: always do you feel safe [...] ASA 3. Charges/Coding Visit Charges Inpatient E&M: 02769 SNF Init L2 10/31/24 0958 <Electronically signed by Pio Friend > Cosigner Signature (if applicable): CC: Dr. Dago Emery MD~ Signed [facility] Work Phone: 1(985) 592-166208-12-2025 Radiology Diagnostic study note [facility] Imaging Services [address] [place], [place] [address] Ankle min 3 Views MR#: [id number] Acct: [id number] Name: BERNICE HASSAN Rep #: [id number] : 1945 F 79 From: Kaushik Bacon MD PCP: Dr. Dago Emery MD Status: ADM I N Study:Ankle min 3 Views Date of Exam: Exam# [id number] Ordering Dr: Dago Emery MD PROCEDURE: ANKLE [...] to prior. Likely subacute injury Reading Location: [facility] CC: Dr. Dago Emery MD ~ Recruiting Scheduler: Signed [facility]08-12-2025 Radiology Diagnostic study note [facility] Imaging Services [address] [place] [address] Knee 1 or 2 Views MR#: [id number] Acct: [id number] Name: BERNICE HASSAN Rep #: [id number] : 1945 F 79 From: Antonio Caballero MD PCP: Dr. 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 There isgood alignment. 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 There is good alignment. Reading Location: [place] [address] CC: Dr. Dago Emery MD ~ Recruiting Scheduler: Signed [facility]08-12-2025 Consult note [facility] Medical Records Department [address] [place] [address] Consultation - GI 10/31/24 0951 MR#: [id number] Acct: [id number] Name: BERNICE HASSAN Rep #:[id number] : 1945 79 From: Pioleoncio Webb DO PCP: Dr. Dago Emery MD Status:ADM I N Location: [place] [address] HPI Consult Data Date of Consult: 10/31/24 [...] part of recently but thelast 5 years. [facility] Medical History Cardiology follow-up encounter Wears glasses [...] never substance use type: does not use justice/christian: Restoration seatbelt use: always do you feel safe [...] ASA 3. Charges/Coding Visit Charges Inpatient E&M: 40855 SNF Init L2 10/31/24 0958 Cosigner Signature (if applicable): CC: Dr. Dago Emery MD~ Signed [facility]08-05-2025 History and physical note Author Daog Rupert [facility] Note Date/Time October 24, 2024 5:2 8pm [facility] Medical Records Department [address] [place] [address] History & Physical Exam 10/21/24 4310 MR#: [id number] Acct: [id number] Name: BERNICE HASSAN Rep #:[id number] : 1945 79 From: Dago Emery MD PCP: Dr. Dago Emery MD Status:ADM I N Location: [address] - General General Date of Admission: 10/21/24 Date of Service: 10/23/24 Chief Complaint: Here for rehabilitation. HPI Narrative BERNICE HASSAN, is a 79 Female who presents with followin10/16/2024 Admit [facility]. 10/16/2024 Dr. Rodriguez performed left total [...] rehabilitation, strengthening, prior to discharge home alone. [facility] Medical History (Updated 10/21/24 @ 17:54 by [...] surgery Social History household members: [facility] Smoking Status: Never smoker second hand exposure: No alcohol intake: never substance use type: does not use justice/christian: Restoration seatbelt use: always do you feel safe [...] psychotropic medication treatment. Please see nursing documentation. 10/24/241725<Electronically signed by Dago Emery MD> Cosigner Signature [...] cc: Dr. Dago Emery MD ~* Signed [facility] Work Phone: 1(924) 184-837508-05-2025 History and physical note [facility] Medical Records Department [address] [place] [address] History & Physical Exam 10/21/24 1747 MR#: [id number] Acct: [id number] Name: BERNICE HASSAN Rep #:[id number] : 1945 79 From: Dago Emery MD PCP: Dr. Dago Emery MD Status:ADM I N Location: [address] General Date of Admission: 10/21/24 Date of Service: 10/23/24 Chief Complaint: Here for rehabilitation. HPI Narrative BERNICE HASSAN, is a 79 Female who presents with followin10/16/2024 Admit [facility]. 10/16/2024 Dr. Rodriguez performed left total [...] rehabilitation, strengthening, prior to discharge home alone. [facility] Medical History (Updated 10/21/24 @ 17:54 by [...] mg 325 mg PO 1200,1700 supp lement 10/21/24 10/20/24 Rx iron) tablet (FeroSul) days [...] surgery Social History household members: [facility] Smoking Status: Never smoker second hand exposure: No alcohol intake: never substance use type: does not use justice/christian: Restoration seatbelt use: always do you feel safe [...] psychotropic medication treatment. Please see nursing documentation. 10/24/241725 Cosigner Signature (if applicable): cc: Dr. Dago [...] cc: Dr. Dago Emery MD ~* Signed [facility]08-04-2025 Progress note Author Freddie Cameron [facility] Note Date/Time October 23, 2024 3:1 4pm [facility] Medical Records Department [address] [place] [address] Progress Note - Pharmacy 10/23/24 1439 MR#: [id number] Acct: [id number] Name: BERNICE HASSAN Rep #:[id number] : 1945 79 From: Freddie Cameron PCP: Dr. Dago Emery MD Status:ADM I N Location: [facility] [place] [address] Documented by User: Freddie Cameron 10/23/24 14:58 [...] 50 Mg Tablet PO 50 mg DAILY@0800 [facility] Administration Protocol Cholecalciferol 25 mcg 10/22/24 10:00 10/23/24 09:36 Cholecalciferol (Vit D3) 25 Mcg Tablet (1,000 Units) PO 25 mcg DAILY KENDRA Administration Doxycycline Monohydrate 100 mg 10/21/24 22:00 10/23/24 09:35 Doxycycline 100 Mg Capsule PO 10/30/24 22:01 100 mg BID [facility] Administration Famotidine 20 mg 10/22/24 10:00 10/23/24 09:35 Famotidine 20 Mg Tablet PO 20 mg DAILY [facility] Administration Ferrous Sulfate 325 mg 10/21/24 17:00 10/22/24 16:36 Ferrous Sulfate 325 Mg Tablet PO Not Given 1200,1700 [facility] Folic Acid 1 mg 10/22/24 08:00 10/23/24 09:34 Folic Acid 1 Mg Tablet PO 1 mg BREAKFAST [facility] Administration Hydroxyurea 1,000 mg 10/23/24 10:00 10/23/24 09:35 Hydroxyurea 500 Mg Capsule PO 1,000 mg MoTuThFrSa@1000 [facility] Administration Levothyroxine Sodium 50 mcg 10/22/24 06:00 10/23/24 05:44 Levothyroxine 50 Mcg Tablet PO 50 mcg DAILY@0600 [facility] Administration Losartan Potassium 100 mg 10/22/24 10:00 10/23/24 09:34 Losartan Potassium 100 Mg Tablet PO 100 mg DAILY [facility] Administration Protocol Magnesium Citrate 300 ml 10/21/24 [...] Sodium 1 Tablet PO 2 tablet BID [facility] Administration Tuberculin PPD 0.1 ml 10/29/24 10:00 [...] 1458 <Electronically signed by Freddie Cameron> Freddie Germain Signature (if applicable): 10/23/24 1514 <Electronically signed by Dago Emery MD> CC: ~ Signed [facility] Work Phone: 1(551) 754-403308-04-2025 Progress note [facility] Medical Records Department [address] [place] [address] Progress Note - Pharmacy 10/23/24 1439 MR#: [id number] Acct: [id number] Name: BERNICE HASSAN Rep #:[id number] : 1945 79 From: Freddie Cameron PCP: Dr. Dago Emery MD Status:ADM I N Location: [place] [address] Documented by User: Freddie Cameron 10/23/24 14:58 TCU RX Drug Regimen Review Subjective/Objective Subjective/Objective Subjective: TCU admission note. 79 year old female with below past medical history hospitalized forleft total knee replacement, removal left tibial nail, removal 4 interlocking screws 10/16/[address] Sven, postoperative course complicated by acute left distal [...] 500 Mg Tablet PO 500 mg Q8 [facility] Administration Amlodipine Besylate 5 mg 10/22/24 10:00 10/23/24 09:35 Amlodipine 5 Mg Tablet PO 5 mg DAILY [facility] Administration Protocol Aspirin 81 mg 10/21/24 17:00 10/23/24 09:34 Aspirin 81 Mg Tab.Chew PO 11/18/24 17:01 81 mg BIDCM [facility] Administration Atenolol 50 mg 10/22/24 08:00 10/23/24 09:34 Atenolol 50 Mg Tablet PO 50 mg DAILY@0800 [facility] Administration Protocol Cholecalciferol 25 mcg 10/22/24 10:00 10/23/24 09:36 Cholecalciferol (Vit D3) 25 Mcg Tablet (1,000 Units) PO 25 mcg DAILY [facility] Administration Doxycycline Monohydrate 100 mg 10/21/24 22:00 10/23/24 09:35 Doxycycline 100 Mg Capsule PO 10/30/24 22:01 100 mg BID [facility] Administration Famotidine 20 mg 10/22/24 10:00 10/23/24 09:35 Famotidine 20 Mg Tablet PO 20 mg DAILY [facility] Administration Ferrous Sulfate 325 mg 10/21/24 17:00 10/22/24 16:36 Ferrous Sulfate 325 Mg Tablet PO Not Given 1200,1700 [facility] Folic Acid 1 mg 10/22/24 08:00 10/23/24 09:34 Folic Acid 1 Mg Tablet PO 1 mg BREAKFAST KENDRA Administration Hydroxyurea 1,000 mg 10/23/24 10:00 10/23/24 09:35 Hydroxyurea 500 Mg Capsule PO 1,000 mg MoTuThFrSa@1000 [facility] Administration Levothyroxine Sodium 50 mcg 10/22/24 06:00 10/23/24 05:44 Levothyroxine 50 Mcg Tablet PO 50 mcg DAILY@0600 KENDRA Administration Losartan Potassium 100 mg 10/22/24 10:00 10/23/24 09:34 Losartan Potassium 100 Mg Tablet PO 100 mg DAILY [facility] Administration Protocol Magnesium Citrate 300 ml 10/21/24 [...] to Recommendations by Pharmacy Agree 10/23/24 1458 Freddie Germain Signature (if applicable): 10/23/24 1514 CC: ~ Signed [facility]08-02-20[facility] Discharge summary Author Nela Wallace [facility] Note Date/Time October 21, 2024 11: 05am [facility] Medical Records Department [address] [place] [address] Discharge Summary 10/21/24 1100 MR#: [id number] Acct: [id number] Name: BERNICE HASSAN Rep #:[id number] : 1945 79 From: Nela CORNELIUS PCP: Dr. Dago Emery MD Status:ADM I N [id number] Providers Date of Admission: 10/18/24 Primary Care Physician: Dr. Dago Emery MD Consultations 10/16/24 14:53 Consult: Hospitalist Routine Consulting Provider: [facility] Reason for Consult: post op med management [...] % (Auto) 54.7, Lymph % (Auto) 27.2, [place] % (Auto) 15.2 H, Eos % (Auto) [...] Emery Chi Consulting Providers: Sofia Carvajal; Juliane Villaa Discharge Orders/Prescriptions Prescriptions: New acetaminophen 500 mg [...] Profile (BMP) (Routine) Timeframe: 1 Week Facility: [facility] - Location: Laboratory Ordered By: Nela Wallace CBC W/Diff, Automated (Routine) Timeframe: 1 Week Facility: [facility] - Location: Laboratory Ordered By: Nela Wallace Referrals / Follow Up: Dago Emery Chi, MD [Primary Care Provider] - Disposition Disposition (needs filled in before D/C Order can be placed): Inpatient Rehab Unit/Facility 10/21/24 1105 <Electronically signed by Nlea CORNELIUS> Cosigner Signature (if applicable): CC: ADRYAN Holland; Dr. Dago Emery MD~ Signed [facility] Work Phone: 1(638) 478-416908-02-2025 Discharge summary Author Nela Wallace [facility] Note Date/Time October 21, 2024 10: 59am [facility] Medical Records Department [address] [place] [address] Transfer to [facility] MR#: [id number] Acct: [id number] Name: BERNICE HASSAN Rep #:[id number] : 1945 79 From: Nela CORNELIUS PCP: Dr. Dago Emery MD Status:ADM I N Certification of patient admission REQUIRED AT TIME OF ADMISSION. I CERTIFY THAT POST-HOSPITAL ECF SERVICES ARE REQUIRED TO BE GIVEN ON AN IN-PATIENT BASIS BECAUSE OF THE ABOVE NAMED PATIENT'S NEED FOR [facility] CARE ON A CONTINUING BASIS FOR THE CONDITION(S) FOR WHICH HE/SHE WAS RECEIVING IN-PATIENT HOSPITAL SERVICES PRIOR TO HIS/HER TRANSFER TO THE F. 10/21/24 1059<Electronically signed by Nela CORNELIUS> Diet [...] Profile (BMP) (Routine) Timeframe: 1 Week Facility: [facility] - Location: Laboratory Ordered By: Nela Rodrigo CBC W/Diff, Automated (Routine) Timeframe: 1 Week Facility: [facility] - Location: Laboratory Ordered By: Nela Wallace Referrals / Follow Up: Dago Emery Chi, MD [Primary Care Provider] - Disposition Disposition (needs filled in before D/C Order can be placed): Inpatient Rehab Unit/Facility 10/21/24 1059 <Electronically signed by Nela CORNELIUS> Cosigner Signature (if applicable): CC: Dr. Juliane Villa MD; Dr. Sofia Carvajal MD; Dr. Dago Emery MD ~ [facility] Work Phone: 1(794) 169-828908-02-2025 Progress note Author Nela Rodrigo [facility] Note Date/Time October 21, 2024 10: 33[facility] Medical Records Department [address] [place] [address] Progress Note - Orthopedic 10/21/24 1022 MR#: [id number] Acct: [id number] Name: BERNICE HASSAN Rep #:[id number] : 1945 79 From: Nela CORNELIUS PCP: Dr. Dago Emery MD Status:ADM I N Location: [place]3 [id number] Subjective Subjective Patient is sitting comfortably in [...] % (Auto) 54.7, Lymph % (Auto) 27.2, [place] % (Auto) 15.2 H, Eos % (Auto) [...] Cosigner Signature (if applicable): CC: ~ Signed [facility] Work Phone: 1([phone]) 264-378708-02-2025 Discharge summary [facility] Medical Records Department [address] [place] [address] Discharge Summary 10/21/24 1100 MR#: [id number] Acct: [id number] Name: BERNICE HSASAN Rep #:[id number] : 1945 79 From: Nela CORNELIUS PCP: Dr. Dago Emery MD Status:ADM I N Location: [facility] [id number] Providers Date of Admission: 10/18/24 Primary Care Physician: Dr. Dago Emery MD Consultations 10/16/24 14:53 Consult: Hospitalist Routine Consulting Provider: [facility] Reason for Consult: post op med management [...] % (Auto) 54.7, Lymph % (Auto) 27.2, [place] % (Auto) 15.2 H, Eos % (Auto) [...] hydroxyurea 500 mg capsule 1,000 mg PO MOTUTHFR Qty: 100 4RF Rx Instructions: does not [...] Profile (BMP) (Routine) Timeframe: 1 Week Facility: [facility] - Location: Laboratory Ordered By: Nela Wallace CBC W/Diff, Automated (Routine) Timeframe: 1 Week Facility: [facility] - Location: Laboratory Ordered By: Nela Wallace Referrals / Follow Up: Dago Emery Chi, MD [Primary Care Provider] - Disposition Disposition (needs filled in before D/C Order can be placed): Inpatient Rehab Unit/Facility 10/21/24 1105 Cosigner Signature (if applicable): CC: ADRYAN Holland; Dr. Dago Emery MD~ Signed [facility]08-02-2025 [facility]25 Discharge summary [facility] Medical Records Department [address] [place] [address] Transfer to [facility] MR#: [id number] Acct: [id number] Name: BERNICE HASSAN Rep #:[id number] : 1945 79 From: Nela CORNELIUS PCP: Dr. Dago Emery MD Status:ADM I N Certification of patient admission REQUIRED AT TIME OF ADMISSION. I CERTIFY THAT POST-HOSPITAL ECF SERVICES ARE REQUIRED TO BE GIVEN ON AN IN-PATIENT BASIS BECAUSE OF THE ABOVE NAMED PATIENT'S NEED FOR [facility] CARE ON A CONTINUING BASIS FOR THE CONDITION(S) FOR WHICH HE/SHE WAS RECEIVING IN-PATIENT HOSPITAL SERVICES PRIOR TO HIS/HER TRANSFER TO THE [facility]. 10/21/24 1059 Diet Diet Order/Speech Therapy: INPATIENT [...] Profile (BMP) (Routine) Timeframe: 1 Week Facility: [facility] - Location: Laboratory Ordered By: Nela Wallace CBC W/Diff, Automated (Routine) Timeframe: 1 Week Facility: [facility] - Location: Laboratory Ordered By: Nela Wallace Referrals / Follow Up: Dago Emery Chi, MD [Primary Care Provider] - Disposition Disposition (needs filled in before D/C Order can be placed): Inpatient Rehab Unit/Facility 10/21/24 1059 Cosigner Signature (if applicable): CC: Dr. Juliane Villa MD; Dr. Sofia Carvajal MD; Dr. Dago Emery MD ~ [facility]08-02-2025 Progress note [facility] Medical Records Department [address] [place] [address] Progress Note - Orthopedic 10/21/24 1022 MR#: [id number] Acct: [id number] Name: BERNICE HASSAN Rep #:[id number] : 1945 79 From: Nela CORNELIUS PCP: Dr. Dago Emery MD Status:ADM I N Location: [place] [id number] Subjective Subjective Patient is sitting comfortably in [...] % (Auto) 54.7, Lymph % (Auto) 27.2, [place] % (Auto) 15.2 H, Eos % (Auto) [...] Cosigner Signature (if applicable): CC: ~ Signed [facility]08-01-2025 Progress note Author Sofia Carvajal [facility] Note Date/Time October 20, 2024 4:4 6pm [facility] Medical Records Department [address] [place] [address] Progress Note - Hospitalist 10/20/24 1640 MR#: [id number] Acct: [id number] Name: BERNICE HASSAN Rep #:[id number] : 1945 79 From: Sofia Carvajal MD PCP: Dr. Dago Emery MD Status:ADM I N Location: [place] [address] Subjective Subjective Initially this morning patient complaining [...] per Ortho Charges/Coding Visit Charges Inpatient E&M: 37966 Subs Hosp L1 10/20/24 1646 <Electronically signed by Sofia Carvajal MD> Cosigner Signature (if applicable): CC: ~ Signed [facility] Work Phone: 1(510) 230-754908-01-2025 Progress note [facility] Medical Records Department [address] [place] [address] Progress Note - Hospitalist 10/20/24 1640 MR#: [id number] Acct: [id number] Name: BERNICE HASSAN Rep #:[id number] : 1945 79 From: Sofia Carvajal MD PCP: Dr. Dago Emery MD Status:ADM I N Location: [place] [address] Subjective Subjective Initially this morning patient complaining [...] per Ortho Charges/Coding Visit Charges Inpatient E&M: 70057 Subs Hosp L1 10/20/24 0116 Cosigner Signature (if applicable): CC: ~ Signed [facility]08-01-2025 Progress note Author Nela Wallace [facility] Note Date/Time October 20, 2024 11: 56am [facility] Medical Records Department [address] [place] [address] Progress Note - Orthopedic 10/20/24 1144 MR#: [id number] Acct: [id number] Name: BERNICE HASSAN Rep #:[id number] : 1945 79 From: Nela CORNELIUS PCP: Dr. Dago Emery MD Status:ADM I N Location: [place]3 LS720-4 Subjective Subjective Patient is sitting comfortably in [...] transition to the transitional care unit on Monday, October 21, 2024. Appreciate recommendations from medicine with regards to patient's medical comorbidities and anxiety. Willrepeat CBC and BMP tomorrow. Patient was encouraged to call with any questions,concerns, new problems. This dictation was created using voice recognition software. Phonetic and/or grammatical errors may exist. 10/20/24 1156 <Electronically signed by Nela CORNELIUS> Cosigner Signature (if applicable): CC: ~ Signed [facility] Work Phone: 1(832) 448-413608-01-2025 Progress note [facility] Medical Records Department [address] [place] [address] Progress Note - Orthopedic 10/20/24 1144 MR#: [id number] Acct: [id number] Name: BERNICE HASSAN Rep #:[id number] : 1945 79 From: Nela CORNELIUS PCP: Dr. Dago Emery MD Status:ADM I N Location: [place] [address] Subjective Subjective Patient is sitting comfortably in [...] software. Phonetic and/or grammatical errors mayexist. 10/20/24 1157 Cosigner Signature (if applicable): CC: ~ Signed [facility]07-31-2025 Progress note Author Landen Potts [facility] Note Date/Time October 19, 2024 1:45 pm [facility] Medical Records Department [address] [place] [address] Progress Note - Orthopedic 10/19/24 1306 MR#: [id number] Acct: [id number] Name: BERNICE HASSAN Rep #:[id number] : 1945 79 From: Landen CORNELIUS PA-C PCP: Dr. Dago Emery MD Status:ADM I N Location: [place] [address] Subjective Subjective The patient was sitting in [...] (Auto) 66.7, Lymph % (Auto) 14.4 L, [place] % (Auto) 17.1 H, Eos % (Auto) [...] intramedullary nailing of the tibia. Reading Location: [id number] Physical Exam Narrative Vital signs stable and [...] Cosigner Signature (if applicable): CC: ~ Signed [facility] Work Phone: 1(478) 657-208207-31-2025 Progress note [facility] Medical Records Department [address] [place] [address] Progress Note - Orthopedic 10/19/24 1306 MR#: [id number] Acct: [id number] Name: BERNICE HASSAN Rep #:[id number] : 1945 79 From: Landen CORNELIUS PA-C PCP: Dr. Dago Emery MD Status:ADM I N Location: MS3 WZ596-9 Subjective Subjective The patient was sitting in [...] (Auto) 66.7, Lymph % (Auto) 14.4 L, [place] % (Auto) 17.1 H, Eos % (Auto) [...] intramedullary nailing of the tibia. Reading Location: [id number] Physical Exam Narrative Vital signs stable and [...] fracture: CT images were reviewed with Dr. Rodrgiuez from October 17, 2024. CT did show [...] Cosigner Signature (if applicable): CC: ~ Signed [facility]07-30-2025 Radiology Diagnostic study note [facility] Imaging Services [address] [place] [address] Knee 1 or 2 Views MR#: [id number] Acct: [id number] Name: BERNICE HASSAN Rep #: [id number] : 1945 F 79 From: Antonio Caballero MD PCP: Dr. Dago Emery MD Status: ADM I N Study:Knee 1 or 2 Views Date of Exam: Exam# [id number] Ordering Dr: Grayson Rodriguez MD PROCEDURE: KNEE [...] intramedullary nailing of the tibia. Reading Location: [facility] CC: Dr. Geo Rodriguez MD; Dr. Dago Emery MD ~ Recruiting Scheduler: Signed [facility]07-30-2025 Progress note Author See Valente [facility] Note Date/Time October 18, 2024 10:2 8am [facility] Medical Records Department [address] [place] [address] Progress Note - Hospitalist 10/18/24 1015 MR#: [id number] Acct: [id number] Name: BERNICE HASSAN Rep #:[id number] : 1945 79 From: See ko MD PCP: Dr. Dago Emery MD Status:ADM I NO Location: [place] [address] Subjective Subjective Had a transient episode of [...] 73.5 H, Lymph % (Auto) 11.1 L, [place] % (Auto) 14.6 H, Eos % (Auto) [...] extension appreciated. Congruent ankle mortise. Reading Location: [facility] Lower Extremity CT 10/17/24 21:42 IMPRESSION: Acute distal tibial meta diaphyseal junction fracture, no extension to the articular surface. No acute distal fibular fracture associated. No dislocation. Reading Location: [place] [address] Physical Exam Narrative General: Alert, Oriented x3, [...] per Ortho Charges/Coding Visit Charges Inpatient E&M: 22904 Subs Hosp L2 10/18/24 1028 <Electronically signed by See Valente MD> Cosigner Signature (if applicable): CC: ~ Signed [facility] Work Phone: 1(322) 980-911407-30-2025 Progress note Author Nlea Wallace [facility] Note Date/Time October 18, 2024 8:38 am [facility] Medical Records Department [address] [place] [address] Progress Note - Orthopedic 10/18/24 0826 MR#: [id number] Acct: [id number] Name: DRAKEBERNICE Alfred Rep #:[id number] : 1945 79 From: Nela CORNELIUS PCP: Dr. Dago Emery MD Status:ADM I NO Location: MS3 HR241-7 Subjective Subjective Patient is anxious and down [...] 73.5 H, Lymph % (Auto) 11.1 L, [place] % (Auto) 14.6 H, Eos % (Auto) [...] extension appreciated. Congruent ankle mortise. Reading Location: [id number] Lower Extremity CT 10/17/24 21:42 IMPRESSION: Acute distal tibial meta diaphyseal junction fracture, no extension to the articular surface. No acute distal fibular fracture associated. No dislocation. [facility] Exam Narrative JUDE hose in place [...] Cosigner Signature (if applicable): CC: ~ Signed [facility] Work Phone: 1(288) 761-635807-30-2025 Progress note [facility] Medical Records Department [facility] [place] [address] Progress Note - Hospitalist 10/18/24 1015 MR#: [id number] Acct: [id number] Name: BERNICE HASSAN Rep #:[id number] : 1945 79 From: See ko MD PCP: Dr. Dago Emery MD Status:ADM I NO Location: [place] [address] Subjective Subjective Had a transient episode of [...] 73.5 H, Lymph % (Auto) 11.1 L, [place] % (Auto) 14.6 H, Eos % (Auto) [...] extension appreciated. Congruent ankle mortise. Reading Location: [facility] Lower Extremity CT 10/17/24 21:42 IMPRESSION: Acute distal tibial meta diaphyseal junction fracture, no extension to the articular surface. No acute distal fibular fracture associated. No dislocation. Reading Location: [place] [address] Physical Exam Narrative General: Alert, Oriented x3, [...] per Ortho Charges/Coding Visit Charges Inpatient E&M: 13712 Subs Hosp L2 10/18/24 1028 Cosigner Signature (if applicable): CC: ~ Signed [facility]07-30-2025 Progress note [facility] Medical Records Department [address] [place] [address] Progress Note - Orthopedic 10/18/24825 MR#: [id number] Acct: [id number] Name: BERNICE HASSAN Rep #:[id number] : 1945 79 From: Nela CORNELIUS PCP: Dr. Dago Emery MD Status:ADM I NO Location: [facility] DL043-7 Subjective Subjective Patient is anxious and down [...] 73.5 H, Lymph % (Auto) 11.1 L, [place] % (Auto) 14.6 H, Eos % (Auto) [...] extension appreciated. Congruent ankle mortise. Reading Location: [id number] Lower Extremity CT 10/17/24 21:42 IMPRESSION: Acute distal tibial meta diaphyseal junction fracture, no extension to the articular surface. No acute distal fibular fracture associated. No dislocation. Reading [facility] Exam Narrative JUDE hose in place [...] Cosigner Signature (if applicable): CC: ~ Signed [facility]07-29-2025 Radiology Diagnostic study note [facility] Imaging Services [address] [place], [place] [address] Extremity Lower without Contra MR#: [id number] Acct: [id number] Name: BERNICE HASSAN Rep #: [id number] : 1945 F 79 From: Saida Osman MD PCP: Dr. Dago Emery MD Status: ADM I NO Study:Extremity Lower without Contra Date of Exam: 10/17/24 Exam# [id number] Ordering Dr: Bharathi Wallace PROCEDURE: EXTREMITY LOWER [...] fibular fracture associated. No dislocation. Reading [facility] CC: ADRYAN Holland; Dr. Dago Emery MD ~ Recruiting Scheduler: Signed [facility]07-29-2025 Radiology Diagnostic study note [facility] Imaging Services [address] [place] [address] Ankle min 3 Views MR#: [id number] Acct: [id number] Name: BERNICE HASSAN Rep #: [id number] : 1945 F 79 From: Yoshi Montes MD PCP: Dr. Dago Emery MD Status: ADM I NO Study:Ankle min 3 Views Date of Exam: Exam# [id number] Ordering Dr: Bharathi Wallace PROCEDURE: LEFT ANKLE [...] extension appreciated. Congruent ankle mortise. Reading Location: [id number] CC: ADRYAN Holland; Dr. Dago Emery MD ~ Recruiting Scheduler: Signed [facility]07-29-2025 Progress note Author Nela Wallace [facility] Note Date/Time October 17, 2024 4:03 pm [facility] Medical Records Department [address] [place] [address] Progress Note - Orthopedic 10/17/24 1554 MR#: [id number] Acct: [id number] Name: BERNICE HASSAN Rep #:[id number] : 1945 79 From: Nela CORNELIUS PCP: Dr. Dago Emery MD Status:ADM I NO Location: MS3 AI639-8 Subjective Subjective Patient appears to be comfortable [...] hardware and expected postop changes. Reading Location: [id number] Physical Exam Narrative JUDE hose in place [...] weightbearing as tolerated with walker. 6. H&H: ..5. Patient's vitals are stable. At this time [...] we will plan to discharge patient to [facility]. Patientwas educated she can continue [...] Cosigner Signature (if applicable): CC: ~ Signed [facility] Work Phone: 1(853) 202-831207-29-2025 Progress note [facility] Medical Records Department [address] [place] [address] Progress Note - Orthopedic 10/17/24 1554 MR#: [id number] Acct: [id number] Name: BERNICE HASSAN Rep #:[id number] : 1945 79 From: Nela CORNELIUS PCP: Dr. Dago Emery MD Status:ADM I NO Location: [place] 206791-1 Subjective Subjective Patient appears to be comfortable [...] hardware and expected postop changes. Reading Location: [facility] Physical Exam Narrative JUDE hose in [...] we will plan to discharge patient to [facility]. Patientwas educated she can continue to take her Zofran as needed for nausea and vomiting. Patient will need to get physical therapy done in the TCU. Patient does have 2- week follow-up visit scheduled to do a wound check. Patient was encouraged to call with any questions, concerns, new problems. 10/17/24 1603 Cosigner Signature (if applicable): CC: ~ Signed [facility]07-29-2025 Progress note Author See Valente [facility] Note Date/Time October 17, 2024 9:03 am [facility] Medical Records Department [address] [facility] [place] [place] [address] Progress Note - Hospitalist 10/17/24 0857 MR#: [id number] Acct: [id number] Name: BERNICE HASSAN Rep #:[id number] : 1945 79 From: See ko MD PCP: Dr. Dago Emery MD Status:ADM I N Location: [place] [address] Subjective Subjective Doing well, no issues overnight. [...] 50 / 50 Lab / Micro Data 07/29/25 05:01 10/17/24 05:01 Labs: Laboratory Results - [...] hardware and expected postop changes. Reading Location: [facility] Physical Exam Narrative General: Alert, Oriented [...] per Ortho Charges/Coding Visit Charges Inpatient E&M: 61342 Subs Hosp L2 10/17/24 0903 <Electronically signed by See Valente MD> Cosigner Signature (if applicable): CC: ~ Signed [facility] Work Phone: 1(586) 119-802607-29-2025 Progress note [facility] Medical Records Department [address] [place] [address] Progress Note - Hospitalist 10/17/24 0857 MR#: [id number] Acct: [id number] Name: BERNICE HASSAN Rep #:[id number] : 1945 79 From: See ko MD PCP: Dr. Dago Emery MD Status:ADM I N Location: [place] [address] Subjective Subjective Doing well, no issues overnight. [...] hardware and expected postop changes. Reading Location: [facility] Physical Exam Narrative General: Alert, Oriented [...] per Ortho Charges/Coding Visit Charges Inpatient E&M: 31060 Subs Hosp L2 10/17/24 0903 Cosigner Signature (if applicable): CC: ~ Signed [facility]07-28-2025 Consult note Author Saulo Bullock [facility] Note Date/Time October 16, 2024 8:29 pm [facility] Medical Records Department [address] [place] [address] Consultation - Hospitalist 10/16/241953 MR#: [id number] Acct: [id number] Name: DRAKEBERNICE Alfred Rep #:[id number] : 1945 79 From: Saulo desai DO PCP: Dr. Dago Emery MD Status:ADM I N Location: [place] [address] Assessment & Plan Assessment/Plan (1) Status post total left knee replacement: PLAN: Plan Patient is an 79-year-old female who presented [facility] on 10/16/2024 for planned left total knee [...] is a 79 F who presented to [facility] on 10/16/2024 for planned left knee replacement. [...] Denied any other pain or discomfort currently. [facility] Medical History Cardiology follow-up encounter Wears glasses [...] never substance use type: does not use justice/christian: Restoration seatbelt use: always do you feel safe [...] hardware and expected postop changes. Reading Location: [id number] Charges/Coding Visit Charges Inpatient E&M: 86970 Subs Hosp L2 10/16/242028 <Electronically signed by Saulo Blulock DO> Cosigner Signature (if applicable): CC: Dr. Geo Rodriguez MD; Dr. Dago Emery MD~ Signed [facility] Work Phone: 1(496) [phone] Consult note Author Ki [facility] Note Date/Time October 16, 2024 6:[address] [facility] Medical Records Department [address] [place] [address] Anesthesia Postop Eval I 10/16/24 1849 MR#: [id number] Acct: [id number] Name: BERNICE HASSAN Rep #:[id number] : 1945 79 From: Ki Cabrera MD PCP: Dr. Dago Emery MD Status:ADM I N Y Race: C Location: [place] [address] Anesthesia: Postop Eval I Current Vital Signs [...] MD Cosigner Signature: Date CC: ~ Signed [facility] Work Phone: 1(690) [phone] Consult note Author Ki wali [facility] Note Date/Time October 16, 2024 6:[address] [facility] Medical Records Department [address] [place] [address] Anesthesia Postop Eval II 10/16/24 1850 MR#: [id number] Acct: [id number] Name: BERNICE HASSAN Rep #:[id number] : 1945 79 From: Ki Cabrera MD PCP: Dr. Dago Emery MD Status:ADM I N Y Race: C Location: [place] [address] Anesthesia Postop Eval I Sum Postop Eval [...] MD Cosigner Signature: Date CC: ~ Signed [facility] Work Phone: 1([phone]) 878-272707-28-2025 Consult note [facility] Medical Records Department [address] [place] [address] Consultation - Hospitalist 10/16/241953 MR#: [id number] Acct: [id number] Name: BERNICE HASSAN Rep #:[id number] : 1945 79 From: Saulo desai DO PCP: Dr. Dago Emery MD Status:ADM I N Location: ND3 WT630-4 Assessment & Plan Assessment/Plan (1) Status post total left knee replacement: PLAN: Plan Patient is an 79-year-old female who presented [facility] on 10/16/2024 for planned left total knee [...] is a 79 F who presented to [facility] on 10/16/2024 for planned left knee replacement. [...] Denied any other pain or discomfort currently. [facility] Medical History Cardiology follow-up encounter Wears glasses [...] surgery Social History household members: none [facility] Smoking Status: Never smoker second hand exposure: No alcohol intake: never substance use type: does not use justice/christian: Restoration seatbelt use: always do you feel safe [...] hardware and expected postop changes. Reading Location: [facility] Charges/Coding Visit Charges Inpatient E&M: 10421 Subs Hosp L2 10/16/242028 Cosigner Signature (if applicable): CC: Dr. Geo Rodriguez MD; Dr. Dago Emery MD~ Signed [facility]07-28-2025 Radiology Diagnostic study note [facility] Imaging Services [address] [place], [place] [address] Knee 1 or 2 Views MR#: [id number] Acct: [id number] Name: BERNICE HASSAN Rep #: [id number] : 1945 F 79 From: Yoshi Montes MD PCP: Dr. Dago Emery MD Status: ADM I N Study:Knee 1 or 2 Views Date of Exam: Exam# [id number] Ordering Dr: Grayson Rodriguez MD PROCEDURE: LEFT [...] hardware and expected postop changes. Reading Location: [id number] CC: Dr. Geo Rodriguez MD; Dr. Dago Emery MD ~ Recruiting Scheduler: Signed [facility]07-28-2025 Consult note [facility] Medical Records Department [address] [place] [address] Anesthesia Postop Eval I 10/16/24 1849 MR#: [id number] Acct: [id number] Name: BERNICE HASSAN Rep #:[id number] : 1945 79 From: Ki Cabrera MD PCP: Dr. Dago Emery MD Status:ADM I N Y Race: C Location: [place] [address] Anesthesia: Postop Eval I Current Vital Signs [...] document: Postop Eval 1 completed: Yes 10/16/241849 > Date _ Ki Cabrera MD Cosigner Signature: Date CC: ~ Signed [facility]07-28-2025 Consult note [facility] Medical Records Department [address] [place] [address] Anesthesia Postop Eval II 10/16/241849 MR#: [id number] Acct: [id number] Name: BERNICE HASSAN Rep #:[id number] : 1945 79 From: Ki Cabrera MD PCP: Dr. Dago Emery MD Status:ADM I N Y Race: C Location: [place] [address] Anesthesia Postop Eval I Sum Postop Eval [...] 3 nausea: No Vomiting: No 10/16/24 1850 > Date _ Ki Cabrera MD Cosigner Signature: Date CC: ~ Signed [facility]07-28-2025 Consult note Author Ki [facility] Note Date/Time October 16, 2024 10:[address] [facility] Medical Records Department [address] [place] [address] Pre-Anesthesia Evaluation 10/16/24 1050 MR#: [id number] Acct: [id number] Name: BERNICE HASSAN Rep #:[id number] : 1945 79 From: Ki Cabrera MD PCP: Dr. Dago Emery MD Status:REG S DC Y Race: C Location: [place] [address] ASA Classification* ASA Classification ASA Classification: 2 [...] KNEE ARTHROPLASTY Anesthesia History Anesthesia History - associate team physician: Anesthesia History - associate team physician Hx Hospitalization No 10/04/24 13:47 Any Problems [...] take am of surgery PONV PONV - associate team physician: PONV - associate team physician Female Yes 10/04/24 13:47 HX of Motion [...] 10/11/24 15:05 Respiratory Assessment Respiratory Assessment - associate team physician: Respiratory Tract Infection Hx - associate team physician Hx Respiratory Tract Infection No 10/04/24 13:47 STOP Sleep Apnea STOP Sleep Apnea - associate team physician: STOP Sleep Apnea - associate team physician Hx Hypertension Yes: CONTROLLED WITH MED 10/04/24 [...] Tobacco Use History Tobacco Use History - associate team physician: Tobacco Use History - associate team physician Tobacco Use Smoking Status Never smoker 10/04/24 13:47 Hx Tobacco Use No 10/04/24 13:47 Years Smoking Packs Smoked per Day Smoking Cessation Date was within the last 15 years Hx Smoking Cessation Date Hx Smoking Cessation Counseling Hematologic Medial History Hematologic Hx - associate team physician: 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 10/16/24 1051 <Electronically signed by Ki Cabrera MD > Date _ Ki Cabrera MD Cosigner Signature: Date CC: ~ Signed [facility] Work Phone: 1(492) 486-802707-28-2025 History and physical note Author Nela Wallace [facility] Note Date/Time October 16, 2024 10:3 7am [facility] Medical Records Department [address] [place] [address] History & Physical Exam 10/13/245 MR#: [id number] Acct: [id number] Name: BERNICE HASSAN Rep #:[id number] : 1945 79 From: Nela CORNELIUS PCP: Dr. Dago Emery MD Status:REG S DC Location: [place] [address] History and Physical History and Physical Patient [...] LT Hip ORIF - (04/17/2014) OPAL @ [facility] LT Leg - (2007) Knee Replacement RT - (09/23/2022) SAW RT TKR ROBOTIC AT [facility] Anesthesia Complications: None Assistive Devices: Glasses, [...] ADRYAN Holland; Dr. Geo Rodriguez MD; Dr. Daog Emery MD~ Signed ADDENDUM by Dr. Geo [...] MD; Dr. Dago Emery MD ~* Signed [facility] Work Phone: 1([phone]) [phone] Consult note [facility] Medical Records Department [address] [place] [address] [place] [address] Pre-Anesthesia Evaluation 10/16/24 1050 MR#: [id number] Acct: [id number] Name: BERNICE HASSAN Rep #:[id number] : 1945 79 From: Ki Cabrera MD PCP: Dr. Dago Emery MD Status:REG S DC Y Race: C Location: [place] [address] ASA Classification* ASA Classification ASA Classification: 2 [...] KNEE ARTHROPLASTY Anesthesia History Anesthesia History - associate team physician: Anesthesia History - associate team physician Hx Hospitalization No 10/04/24 13:47 Any Problems [...] take am of surgery PONV PONV - associate team physician: PONV - associate team physician Female Yes 10/04/24 13:47 HX of Motion [...] 10/11/24 15:05 Respiratory Assessment Respiratory Assessment - associate team physician: Respiratory Tract Infection Hx - associate team physician Hx Respiratory Tract Infection No 10/04/24 13:47 STOP Sleep Apnea STOP Sleep Apnea - associate team physician: STOP Sleep Apnea - associate team physician Hx Hypertension Yes: CONTROLLED WITH MED 10/04/24 [...] Tobacco Use History Tobacco Use History - associate team physician: Tobacco Use History - associate team physician Tobacco Use Smoking Status Never smoker 10/04/24 13:47 Hx Tobacco Use No 10/04/24 13:47 Years Smoking Packs Smoked per Day Smoking Cessation Date was within the last 15 years Hx Smoking Cessation Date Hx Smoking Cessation Counseling Hematologic Medial History Hematologic Hx - associate team physician: 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 10/16/24 1051 > Date _ Ki Cabrera MD Cosigner Signature: Date CC: ~ Signed [facility]07-28-2025 History and physical note [facility] Medical Records Department [address] [place] [address] History & Physical Exam 10/13/24 1655 MR#: [id number] Acct: [id number] Name: BERNICE HASSAN Rep #:[id number] : 1945 79 From: Nela CORNELIUS PCP: Dr. Dago Emery MD Status:REG S MA Location: [place] [address] History and Physical History and Physical Patient Name: Bernice Starks JennifersDOB: 1945 From: NELA WALLACE PA-C DATE [...] LT Hip ORIF - (04/17/2014) JWG @ [facility] LT Leg - (2007) Knee Replacement RT - (09/23/2022) SAW RT TKR ROBOTIC AT [facility] Anesthesia Complications: None Assistive Devices: Glasses, [...] Dictated on admission Date: Time: Signature: 10/13/24 4738 Cosigner Signature (if applicable): CC: ADRYAN Holland; [...] MD; Dr. Dago Emery MD ~* Signed [facility]07-25-2025 [facility]07-23-[address] [facility] [address] [place] [address] OFFICE VISIT Date of Service: 10/11/24 1453 MR#: [id number] Acct: [id number] Name: BERNICE HASSAN Rep #: [id number] : 1945 From: Carolyn Hernandez ch RECORDS MANAGEMENT CLERK RECORDS MANAGEMENT CLERK-C Age/Sex: 79/F Location: [facility] Status: Signed HPI Subjective Date of Service [...] episodes of overt bleeding, + bruises easily. [facility] Medical History (Updated 10/04/24 @ 13:55 by [...] never substance use type: does not use justice/christian: Restoration seatbelt use: always do you feel safe [...] the past year?: No 10/11/24 1522 h RECORDS MANAGEMENT CLERK RECORDS MANAGEMENT CLERK-C> Date _ Carolyn Ruvalcaba NP RECORDS MANAGEMENT CLERK-C Cosigner Signature: Date (if applicable) CC: ~ [facility]07-23-2025 Progress note Author Carolyn Ruvalcaba [facility] Note Date/Time October 11, 2024 3:22 pm [facility] [address] [address] OFFICE VISIT Date of Service: 10/11/24 1453 MR#: [id number] Acct: [id number] Name: BERNICE HASSAN Rep #: [id number] : 1945 From: Carolyn Hernandez CORDELL RECORDS MANAGEMENT CLERK-C Age/Sex: 79/F Location: [facility] Status: Signed HPI Subjective Date of Service [...] episodes of overt bleeding, + bruises easily. [facility] Medical History (Updated 10/04/24 @ 13:55 by [...] never substance use type: does not use justice/christian: Restoration seatbelt use: always do you feel safe [...] Cosigner Signature: Date (if applicable) CC: ~ [facility] Work Phone: 1(136) 660-876007-02-2025 Evaluation note* Diagnosis Onset Date Resolution Status [...] Anemia acute November 01, 2 025 2:50pm [facility] Work Phone: 1(603) 348-774205-14-2025 Radiology Diagnostic study note [facility] Imaging Services [address] [place], [place] [address] Extremity Lower without Contra MR#: [id number] Acct: [id number] Name: BERNICE HASSAN Rep #: [id number] : 1945 F 79 From: Myron Newton MD PCP: Dr. Dago Emery MD Status: REG C GOYO Study:Extremity Lower without Contra Date of Exam: 08/01/24 Exam# [id number] Ordering Dr: Grayson Rodriguez MD PROCEDURE: EXTREMITY [...] left tibia without apparent complication. Reading Location: [place] [address] CC: Dr. Geo Rodriguez MD; Dr. Dago Emery MD ~ Recruiting Scheduler: Signed [facility]05-02-2025 Consult note Author Franklyn Lopez [facility] Note Date/Time November 01, 2024 4: 13pm [facility] Medical Records Department [address] [place] [address] Anesthesia Postop Eval I 11/01/241612 MR#: [id number] Acct: [id number] Name: BERNICE HASSAN Rep #:[id number] : 1945 79 From: Franklyn CHAMBERS PCP: Dr. Dago Emery MD Status:REG S DC Y Race: C Location: [place] [address] Anesthesia: Postop Eval I Current Vital Signs [...] Yes 11/01/241612 <Electronically signed by Franklyn Lopez COVERSTITCH MACHINE OPERATOR> Date _ Franklyn Olsenigner Signature: Date CC: ~ Signed [facility] Work Phone: 1(276) [phone] Evaluation note* Diagnosis Onset Date Resolution Status Admit Date Essential thrombocythemia chronic July 10, 2024 12:43pm Myeloproliferative disorder chronic July 10, 2024 12:43pm Essential thrombocythemia chronic July 10, 2024 12:45pm Myeloproliferative disorder chronic July 10, 2024 12:45pm Educational circumstance resolved July 10, 2024 12:45pm Erythrocytosis resolved June 12:45pm Leukocytosis resolved July 10, 2024 12:45pm Thrombocytosis deleted June 12:45pm [facility] Work Phone: 1(939) 536-534404-21-2025 Evaluation note* Diagnosis Onset Date Resolution Status [...] 2:15pm Thrombocytosis deleted October 11, 2024 2:15pm [facility] Work Phone: 1(953) 501-977104-21-2025 Evaluation note* Diagnosis Onset Date Resolution Status [...] knee replacement acute October 18, 2024 1:14pm [facility] Work Phone: 1([phone]) [phone] Evaluation note* Diagnosis Onset Date Resolution Status [...] Anemia acute November 01, 2 025 2:50pm [facility] Work Phone: Consult note Author Avery Rod [facility] Note Date/Time November 01, 2024 4: 03pm [facility] Medical Records Department [address] [place] [address] Pre-Anesthesia Evaluation 11/01/24 1539 MR#: [id number] Acct: [id number] Name: BERNICE HASSAN Rep #:[id number] : 1945 79 From: Avery Crocker PCP: Dr. Dago Emery MD Status:REG S DC Y Race: C Location: [place] [address] ASA Classification* ASA Classification ASA Classification: 3 [...] Procedure(s): EGD Anesthesia History Anesthesia History - associate team physician: Anesthesia History - associate team physician Hx Hospitalization Yes 11/01/24 15:07 Any Problems [...] take am of surgery PONV PONV - associate team physician: PONV - associate team physician Female Yes 11/01/24 15:07 HX of Motion [...] 11/01/24 15:07 Respiratory Assessment Respiratory Assessment - associate team physician: Respiratory Tract Infection Hx - associate team physician Hx Respiratory Tract Infection No 11/01/24 15:07 STOP Sleep Apnea STOP Sleep Apnea - associate team physician: STOP Sleep Apnea - associate team physician Hx Hypertension Yes 11/01/24 15:07 Hx Sleep [...] Tobacco Use History Tobacco Use History - associate team physician: Tobacco Use History - associate team physician Tobacco Use Smoking Status Never smoker 11/01/24 15:07 Hx Tobacco Use No 11/01/24 15:07 Years Smoking Packs Smoked per Day Smoking Cessation Date was within the last 15 years Hx Smoking Cessation Date Hx Smoking Cessation Counseling Hematologic Medial History Hematologic Hx - associate team physician: 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 11/01/24 1603 <Electronically signed by Avery Rod MD> Date _ Avery Rod MD Cosigner Signature: Date CC: ~ Signed [facility] Work Phone: Consult note Author Dinorah jareth [facility] Note Date/Time November 01, 2024 4: 50pm [facility] Medical Records Department [address] [place] [id number] Anesthesia Postop Eval II 11/01/24 1633 MR#: [id number] Acct: [id number] Name: BERNICE HASSAN Rep #:[id number] : 1945 79 From: Dinorah Headley COVERSTITCH MACHINE OPERATOR PCP: Dr. Dago Emery MD Status:REG S DC Y Race: C Location: [place] [address] Anesthesia Postop Eval I Sum Postop Eval Completion status Anesthesia document: Postop Eval 1 completed: Yes Anesthesia Postop Eval I Summary Anesthesia Postop Eval I Summary: Anesthesia Postop Eval I: Assessment Summary Airway patent Yes 11/01/24 16:13 COVERSTITCH MACHINE OPERATOR.[email or web address] Spontaneous unlabored Yes 11/01/24 16:13 COVERSTITCH MACHINE OPERATOR.[email or web address] respirations Mental status Awake,Calm 11/01/24 16:13 COVERSTITCH MACHINE OPERATOR.JBLOU nausea No 11/01/24 16:13 COVERSTITCH MACHINE OPERATOR.[email or web address] Vomiting No 11/01/24 16:13 COVERSTITCH MACHINE OPERATOR.[email or web address] Anesthesia Postop Eval I: Fluid Summary Crystalloid volume administer 200 11/01/24 16:13 COVERSTITCH MACHINE OPERATOR.JBLOU (ml) Colloids volume administered ( ml) Blood Product volume administered (ml) Total IV fluid infused 200 11/01/24 16:13 COVERSTITCH MACHINE OPERATOR.JBLOU Anesthesia Postop Eval I: Summary Notes Anesthesia Complication No 11/01/24 16:13 COVERSTITCH MACHINE OPERATORPaigeJBLOU Anesthesia Complication Comment: Post-operative progress note Anesthesia: Postop Eval II Evaluation Mental status: Awake Pain Level: 0 nausea: No Vomiting: No 11/01/24 1633 <Electronically signed by Dinorah jarquin CRNA> Date _ Dinorah Headley COVERSTITCH MACHINE OPERATOR Cosigner Signature: Date CC: ~ Signed [facility] Work Phone: Discharge summary Author Dr. Yanez [facility] April 12, 2022 10:08am Note Date/Time April 12, 2022 8 :45am [facility] Medical Records Department [address] [place] [id number] Emergency Department Summary 04/12/22 MR#: [id number] Acct: [id number] Name: BERNICE HASSAN Alfred Rep #:[id number] : 1945 76 From: Garret Yanez DO [...] states he has a history of osteoarthritis. [facility] Medical History Anxiety Fracture of [...] never substance use type: does not use justice/christian: Restoration seatbelt use: always do you feel safe [...] Signed: Sb Vernon MD at 9:33 EST , Discharge Plan Triage Chief Complaint: Lower [...] your Primary Care Provider. Call [facility] ([phone]) or report to the closest Emergency Room. Call 911 if necessary. 04/12/22 1008 <Electronically signed by Garret Yanez DO> Cosigner Signature (if applicable): CC: Dr. Dago Emery MD ~ Signed [facility] Work Phone: Evaluation note* Diagnosis Onset Date Resolution Status Essential thrombocythemia ch ronic Myeloproliferative disorder chronic Essential thrombocythemia ch ronic Myeloproliferative disorder chronic Educational circumstance res olved Erythrocytosis resolved Leukocytosis resolved [facility] Work Phone: Evaluation note* Diagnosis Onset Date Resolution Status Essential thrombocythemia ch ronic Myeloproliferative disorder chronic Educational circumstance res olved Erythrocytosis resolved Leukocytosis resolved Essential thrombocythemia ch ronic Myeloproliferative disorder chronic [facility] Work Phone: Evaluation note* Diagnosis Onset Date Resolution Status BMI 33.0-33.9,adult acute Debility acute Status post total right knee replacement acute Essential thrombocythemia ch ronic Hyperlipidemia chronic Hypertension chronic Hypothyroidism chronic Essential thrombocythemia ch ronic Myeloproliferative disorder chronic Essential thrombocythemia ch ronic Myeloproliferative disorder chronic Educational circumstance res olved Erythrocytosis resolved Leukocytosis resolved [facility] Work Phone: History and physical note Author Pio Webb [facility] Note Date/Time November 01, 2024 3: 26pm [facility] Medical Records Department [address] [place] [address] History & Physical Exam 11/01/24 1523 MR#: [id number] Acct: [id number] Name: BERNICE HASSAN Rep #:[id number] : 1945 79 From: Pio Webb DO PCP: Dr. Dago Emery MD Status:REG S MA Location: [place] [address] HPI - General General Date of Admission: 11/01/24 Date of Service: 11/01/24 Chief Complaint: Anemia HPI Narrative BERNCIE HASSAN, is a 79 F who presents [...] part of recently but thelast 5 years. [facility] Medical History Cardiology follow-up encounter Wears glasses [...] never substance use type: does not use justice/christian: Restoration seatbelt use: always do you feel safe [...] Dago Emery MD; Pio Webb DO~ Signed [facility] Work Phone: Hospital Discharge instructionsAmbulatory Orders* 12 Lead EKG [[facility]] Location: None Selected [facility] Work Phone: Hospital Discharge instructionsAdditional Instructions Discharge 11/28/2024 to [place], intermediate, private pay, part B therapies.[facility] Work Phone: Reason for referral (narrative)No reason for referral information availableWFort [facility] Work Phone: Chief Complaint and Reason [...] November 01, 2024 2: 50pm Advance Directives No Advanced Directives Records Found Advance Directive Response Recorded Date/ Time Advance Directives Yes April 19, 2014 4:40pm Living Will No December 02, 2018 12:53pm Power of Lumber Stacker No November 12:53pm Advance Directive Response Recorded Date/ Time Advance Directives Yes April 19, 2014 4:40pm Living Will No April 12 8:37am Power of Lumber Stacker No April 12, 2022 8:37am Advance Directive Response Recorded Date/ Time Advance Directives Yes April 19, 2014 5:40pm Living Will No April 12 9:37am Power of Lumber Stacker No April 12, 2022 9:37am Advance Directive Response Recorded Date/ Time Advance Directives Yes April 19, 2014 5:40pm Living Will Yes September 03, 2022 11:45am Power of Lumber Stacker Yes September 03 11:45am Advance Directive Response Recorded Date/ Time Name of Medical Power of Lumber Stacker 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 No June 27, 2018 2:53pm Advance Directives Yes April 19, 2014 5:40pm Advance Directive Response Recorded Date/ Time Living Will No June 27, 2018 2:53pm Do you have a Healthcare Power of Lumber Stacker? No June 27, 2018 2:53pm Do you have a Healthcare Power of Lumber Stacker? Yes October 16, 2024 8:13pm Advance Directives Yes April 19, 2014 5:40pm Advance Directive Response Recorded Date/ Time Living Will No June 27, 2018 2:53pm Do you have a Healthcare Pow er of Lumber Stacker? No June 27, 2018 2:53pm Do you have a Healthcare Pow er of Lumber Stacker? Yes October 23, 2024 3:05pm Name of Medical Power of Lumber Stacker Lizzeth Matias, jon October 23, 2024 3:05pm Do you have a Healthcare Pow er of Lumber Stacker? No November 01, 2024 3:07pm Do you have a Healthcare Pow er of Lumber Stacker? Yes October 16, 2024 8:13pm Advance Directives [...] Care Provider, Referring Provider Active Carolyn Ruvalcaba RECORDS MANAGEMENT CLERK, RECORDS MANAGEMENT CLERK-C Attending Provider Active Team Status: Inactive Member Role Status Dates Dr. Dago Emery MD Primary Care Provider Active Dr. eGo Rodriguez MD Attending Provider, Referring P milka [...] 2024 End: July 10, 2024 Carolyn Ruvalcaba RECORDS MANAGEMENT CLERK, RECORDS MANAGEMENT CLERK-C Attending Provider Active Start: July 10, 2024 [...] 2024 End: July 10, 2024 Carolyn Ruvalcaba RECORDS MANAGEMENT CLERK, RECORDS MANAGEMENT CLERK-C Attending Provider Active Start: July 10, 2024 [...] 2024 End: October 11, 2024 Carolyn Ruvalcaba RECORDS MANAGEMENT CLERK, RECORDS MANAGEMENT CLERK-C Attending Provider Active Start: October 11, 2024 [...] Active Start: October 18, 2024 Dr. Geo Rordiguez MD Other Provider Active Sta rt: October [...] Provider Active Start: October 20, 2024 Dr. eGo Rodriguez MD Other Provider Active Sta rt: [...] 2024 End: October 11, 2024 Carolyn Ruvalcaba RECORDS MANAGEMENT CLERK, RECORDS MANAGEMENT CLERK-C Attending Provider Active Start: October 11, 2024 [...] ized section and content) DATE CREATED AUTHOR 01/08/2025 [facility] FOR RECORDS PERTAINING TO PATIENTS WHO [...] BE BASED ON THE PRIMARY CLINICAL RECORDS. [employer] provides no warranty or guarantee of the accuracy or completeness of information in this document.
[2025-01-10 08:10] LABS: Hematocrit 30.0 % (37-47); Hemoglobin 9.9 g/dL (12.0-15.0); Immature Granulocytes Count 0.020 X10^3/uL (0.0-0.0); Mean Corp Hgb Conc 33.0 g/dL (32-36); Mean Corpuscular Volume 112.8 fL (81-99); Mean Platelet Vol. 10.4 fl (6.2-12.0); NRBC Flagged by Analyzer 0 % (0-5); Platelet Count 158 K/mm3 (150-450); RBC Distribution Width CV 14.9 % (11.6-14.6); RBC Distribution Width SD 61.7 fl (35.1-43.9); Red Blood Count 2.66 M/mm3 (4.2-5.4); White Blood Count 3.4 K/mm3 (4.4-11.0)
[2025-01-10 08:22] LABS: Anion Gap 9 (5-15); BUN 16 mg/dL (4-19); BUN/Creat Ratio 20.4 RATIO (10-20); Calcium,Total 8.9 mg/dL (7.6-11.0); Carbon Dioxide 23.7 mmol/L (21.0-32.0); Chloride 104 mmol/L (98-108); Glucose 82 mg/dL (70-99); Potassium 3.8 mmol/L (3.3-5.1)
== END ==
LOC: OLS.WHLTCC 05:00
PROVIDERS: PCP Family Medicine Geriatric Medicine; Visit Provider Internal Medicine
DX: D69.6 Thrombocytopenia, unspecified (principal)
CPT/HCPCS: 36415; 80048; 85025

== ENCOUNTER → 2025-02-21 05:00 | Outpatient (REF) | payer MEDICARE, OTHER, SELFPAY ==
--- OUTSIDE RECORDS SUMMARY | 2025-02-21 04:49 | XMS RPT_ITS | CCD ---
Author Organization [facility] Care Team Providers Care Mainframe Developer Name Role Phone Dr. Dago Emery Chi Primary Care Provider Rupert, Dr. Dago Nicole Referring Provider Herlinda, Dr. Heck Attending Provider Rupert, Dr. Dago Nicole Primary Care Provider Rupert, Dr. Dago Nicole Referring Provider Peg PATTERNMAKER WOOD, PATTERNMAKER WOOD-C Carolyn Attending Provider Rupert, Dr. Dago Nicole Primary Care Provider Rupert, Dr. Dago Nicole Referring Provider Herlinda, Dr. Heck Attending Provider Rupert COON, Dr. Dago Nicole Primary Care Provider Rupert COON, Dr. Dago Nicole Referring Provider Peg PATTERNMAKER WOOD-C, Carolyn Attending Provider Herlinda COON, Dr. Heck [...] Provider Sven COON, Dr. Guardado Attending Provider [phone] Wei COON, Dr. Black Other Provider Allen COON, Dr. Juliane Murguia Other Provider Wei COON, Dr. Black Attending Provider Rupert COON, Dr. Dago Nicole Admit Provider Rupert COON, Dr. Dago Nicole Other Provider Jon UGALDE, Dr. Suero Attending Provider Jon UGALDE, Dr. Suero Other Provider Rupert COON, Dr. Dago Nicole Primary Care Provider Rupert COON, Dr. Dago Nicole Referring Provider Peg PATTERNMAKER WOOD-C, Carolyn Attending Provider Rupert COON, Dr. Dago Nicole Primary Care Physician Rupert COON, Dr. Dago Nicole Referring Provider Chanda COON, Dr. Jamil Attending Physician Peg PATTERNMAKER WOOD-C, Carolyn Attending Physician Herlinda COON, Dr. Heck Attending Physician Sven COON, Dr. Guardado Admitting Physician Sven COON, Dr. Guardado Referring Provider [phone] Sven COON, Dr. Guardado Nurse Practitioner Ara UGALDE, Dr. Vernon Attending Physician Ara UGALDE, Dr. Vernon Nurse Practitioner Ambrosio COON, Dr. See Pulido Nurse Practitioner Ambrosio COON, Dr. See Pulido Attending Physician Sven COON, Dr. Guardado Attending Physician Wei COON, Dr. Black Nurse Practitioner Allen COON, Dr. Juliane Murguia Nurse Practitioner Wei COON, Dr. Black Attending Physician Rupert COON, Dr. Dago Nicole Admitting Physician Rupert COON, Dr. Dago Nicole Attending Physician Rupert COON, Dr. Dago Nicole Nurse Practitioner Jon UGALDE, Dr. Suero Attending Physician Jon UGALDE, Dr. Suero Nurse Practitioner Bala COON, Dr. Bryan Attending Physician [phone] Irvin Mckenna MD Attending Physician Unavail able Amberly PATTERNMAKER WOOD-C, Fouzia Attending Physician Irvin Joe Attending Unavailabl e Rupert, Dago Chi Primary Care Unavailable Oleghe Irvin SARABIA Attending Unavailabl e Rupert, Dago Chi Primary Care Unavailable Oleghe Irvin SARABIA Attending Unavailabl e Rupert, Dago Chi Primary Care Unavailable Amberly PATTERNMAKER WOOD, Fouzia Attending Unavailable Rupert, Dago Chi Primary Care Unavailable Rupert, Dago Chi Primary Care Unavailable Rupert, Dago Chi Admitting Unavailable Rupert, Dago Chi Attending Unavailable Geo Rodriguez Referring Unavailable Goe Rodriguez Attending Unavailable Rupert, Dago Chi Primary Care Unavailable Oleghe Irvin SARABIA Attending Unavailabl e Rupert, Dago Chi Primary Care Unavailable Oleghe OLSIrvin Attending Unavailabl e Rupert, Dago Chi Primary Care Unavailable Pio Webb Attending Unavailable Rupert, Dago Chi Primary Care Unavailable Rupert, Dago Chi Referring Unavailable Amberly PATTERNMAKER WOOD, Fouzia Attending Unavailable Rupert, Dago Chi Primary Care Unavailable OlegheKrystinbe Attending Unavailable Rupert, Dago Chi Primary Care Unavailable Saulo Bullock Consulting Unavailable See Valente Attending Unavailable Geo Rodriguez Admitting Unavailable Geo Rodriguez Referring Unavailable Rupert, Dago Chi Primary Care Unavailable See Valente Consulting Unavailable Geo Rodriguez Consulting Unavailable Oleghe Anupam SARABIAongbe Attending Unavailabl e Rupert, Dago Chi Primary [...] Attending Unavailable Rupert, Dago Chi Referring Unavailable IsckarusUmang Attending Unavailable Rupert, Dago Chi Primary Care Unavailable Saulo Bullock Attending Unavailable Rupert, Dago Chi Referring Unavailable Peg PATTERNMAKER WOOD, Carolyn Attending Unavailable Rupert, Dago Chi Primary Care Unavailable Rupert, Dago Chi Referring Unavailable Rupert, Dago Chi Primary Care Unavailable Umang Pate Attending Unavailable Tickton PATTERNMAKER WOOD, Fouzia Attending Unavailable Rupert, Dago Chi Primary Care Unavailable Sofia Carvajal Consulting Unavailable Sven, Geo Admitting Unavailable Sven, Geo Referring Unavailable Sudheer Rodriguezen Attending Unavailable Rupert, Dago Chi Primary Care Unavailable Koram, Juliane Shantal Consulting Unavailable Oleghe OLS, Efewongbe Attending Unavailabl e Rupert, Dago Chi Primary Care Unavailable IsckarusUmang Attending Unavailable Rupert, Dago Chi Primary Care Unavailable Rupert, Dago Chi Referring Unavailable Rupert, Dago Chi Primary Care Unavailable Amberly PATTERNMAKER WOOD, Fouzia Attending Unavailable Rupert, Dago Chi Primary Care Unavailable Omero Armas Attending Unavailable Rupert, Dago Chi Referring Unavailable Rupert, Dago Chi Primary Care Unavailable Peg PATTERNMAKER WOOD, Carolyn Attending Unavailable Rupert, Dago Chi Referring Unavailable Saulo Bullock Consulting Unavailable Sofia Carvajal Attending Unavailable Sven, Geo Admitting Unavailable Sven, Geo Referring Unavailable Rupert, Dago Chi Primary Care Unavailable Carvajal Sofia Consulting Unavailable Sven, Geo Consulting Unavailable Friend, Pio Attending Unavailable Rupert, Dago Chi Primary Care Unavailable Rupert, Adgo Chi Admitting Unavailable Rupert, Dago Chi Referring Unavailable Rupert, Dago Chi Consulting Unavailable Friend, Pio Attending Unavailable Friend, Pio Consulting Unavailable Rupert, Dago Chi Primary Care Unavailable Rupert, Dago Chi Referring Unavailable Omero Armas Attending Unavailable Rupert, Dago Chi Primary Care Unavailable Rupert, Dago Chi Referring Unavailable Rupert, Dago Chi Primary Care Unavailable Oleghe OLS, Efewongbe Attending Unavailabl e Oleghe OLS, Efewongbe Attending Dago Flores Chi Primary Care Unavailable Allergies Allergy Classification Reported Allergen(s) Allergy Type Date of Onset Reaction(s) Facility (17 sources) Contrast media; Translations: [red dye] Propensity to adverse reactions 2 Unknown [facility] Comment on above: mouth to droop (16 sources) Penicillins Propensity to adverse reactions 2 Swelling [facility] (17 sources) Promethazine; Translations: [promethazine HCl] Drug Allergy 2 Other [facility] Comment on above: heightens engery (zi ng) (16 sources) Tetanus Vaccines and Toxoid Propensity to adverse reactions 2 NEEDS FOLLOW-UP [facility] (1 source) Penicillins Drug allergy (disorder) 5 [facility] Repository (1 source) Tetanus Vaccines and Toxoid Drug allergy (disorder) 5 [facility] Repository Medications Current Medications Medication Drug Class(es) Dates Sig (Normalized) Sig (Original) acetaminophen 500 mg oral tablet (20 sources) Start: 10-21-2024 End: 11-24-2024 Start: 10-21-2024 End: 11-24-2024 take 2 tablets [...] a 24-hour period. Start: 09-25-2022 End: 10-04-2024 Start: 09-25-2022 End: 10-04-2024 Acetaminophen 500 mg [...] 3000 mg Tylenol in a 24-hour period. acetaminophen 325 mg / HYDRO codone bitartrate 5 mg oral tablet (20 sources) Opioid Agonist Start: 01-09-2025 Start: 01-09-2025 Start: 01-09-2025 Start: 01-09-2025 Start: 12-27-2024 End: 01-09-2025 Start: 12-27-2024 End: 12-27-2024 Start: 12-06-2024 End: 12-09-2024 Start: 12-04-2024 End: 12-25-2024 Start: 04-19-2014 End: 05-07-2014 Start: 04-19-2014 End: 05-07-2014 Hydrocodone-Acetaminophen 1 TABLET tablet Discontinued 1 - 2 [...] 19, 2014 2:44pm May 07, 2014 11:05am atenolol 25 mg oral tablet (20 sources) beta-Adrenergic Elizabeth Start: 11-24-2024 Start: 10-09-2022 End: 11-24-2024 Start: 09-25-2022 End: 10-09-2022 Start: 04-17-2014 take 100 mg by mouth once driss y Atenolol Active 100 MG PO DAILY April 17, 2014 1:00am cholecalciferol 0.025 mg ora l tablet (20 sources) Vitamin D Start: 10-26-2019 End: 11-24-2024 Start: 10-26-2019 End: 11-24-2024 take 1 tablet by mouth once daily Cholecalciferol (Vitamin D3) 1,000 UNIT tablet Discontinued 1000 U PO DAILY October 26, 2019 12:00am November 24, 2024 1:55pm bones citalopram 20 mg oral tablet (11 sources) Serotonin Reuptake Inhibitor Start: 11-24-2024 Start: 11-01-2024 End: 11-24-2024 docusate sodium 50 mg / adria osides, long term 8.6 mg oral tablet (20 sources) Start: 11-24-2024 Start: 11-24-2024 Sennosides-Doc usate Sodium (Stimulant Laxative Plus) 8.6-50 mg Tablet Active 2 {tbl} PO TWICE A DAY 0 November 24, 2024 12:00am Start: 09-25-2022 End: 07-31-2024 Start: 09-25-2022 End: 07-31-2024 Sennosides-Docusate Sodium ( Stool Softener-Stimulant Laxat) 8.6-50 mg Tablet Discontinued 2 {tbl} PO BID@0800,2000 120 30 0 October 09, 2022 12:00am July 31, 2024 11:34am folic acid 1 mg oral tablet (7 sources) Start: 10-21-2024 Start: 10-21-2024 take 1 tablet by [place] th at breakfast Folic Acid 1 mg Tablet Active 1 mg PO WITH BREAKFAST 0 20 October 21, 2024 12:00am supplement levothyroxine sodium 0.05 mg oral tablet (16 sources) l-Thyroxine Start: 08-04-2013 LORazepam 0.5 mg oral tablet (20 sources) Benzodiazepine Start: 01-09-2025 Start: 01-09-2025 Start: 01-09-2025 Start: 01-09-2025 Start: 11-01-2024 End: 01-09-2025 magnesium citrate 58.2 mg/ml oral solution (11 sources) Start: 11-01-2024 End: 11-24-2024 Start: 11-01-2024 End: 11-24-2024 take 1 mL by mouth once daily as needed for constipation Magnesium Citrate Solution Active 300 mL PO DAILY as needed for Constipation 0 November 24, 2024 12:00am menthol 0.0044 mg/mg / zinc oxide 0.206 mg/mg topical ointment (5 sources) Start: 11-24-2024 Start: 11-24-2024 Menthol-Zinc O xide (Calmoseptine) 0.44-20.6 % Ointment Active 1 NMA TOPICAL TWICE A DAY 0 November 24, 2024 12:00am Please contact the information source for Protocol details. nystatin 100 unt/mg topical powder (5 sources) Polyene Antifungal Start: 11-24-2024 Start: 11-24-2024 Nystatin 100,0 00 unit/gram Powder Active 1 NMA TOPICAL TWICE A DAY 0 0 November 24, 2024 12:00am Please contact the information source for Protocol details. pantoprazole 40 mg delayed r elease oral tablet (5 sources) Proton Pump Inhibitor Start: 11-24-2024 sucralfate 1000 mg oral tabl et (5 sources) Aluminum Complex Start: 11-24-2024 Completed/Discontinued Medications Medication Drug Class(es) Dates Sig (Normalized) Sig (Original) ALPRAZolam 0.5 mg oral tablet (16 sources) Benzodiazepine Start: 02-14-2014 End: 05-07-2014 amLODIPine 5 mg oral tablet (20 sources) Dihydropyridine Calcium Channel Elizabeth Start: 07-21-2018 End: 11-24-2024 Start: 04-19-2014 End: 05-07-2014 Aspirin (20 sources) Platelet Aggregation Inhibitor, Nonstero idal Anti-inflammatory Drug Start: 10-21-2024 End: 11-24-2024 Start: 10-21-2024 End: 11-24-2024 take 1 capsule by mouth twice daily at mealtime Aspirin 81 mg capsule Discontinued 81 mg PO TWICE DAILY WITH MEALS 60 0 October 21, 2024 12:00am November 24, 2024 1:55pm blood thinner Take for 4 weeks postoperatively. Start: 09-25-2022 End: 10-21-2024 Start: 09-25-2022 End: 09-20-2024 take 1 tablet by mouth twice daily Aspirin 81 mg Tablet,Chewable Discontinued 81 mg PO BID@0800,1999 14 7 0 October 09, 2022 12:00am September 20, 2024 2:33pm Start: 07-21-2018 End: 09-25-2022 Start: 07-21-2018 End: 11-04-2021 take 1 tablet by mouth once daily Aspirin 81 MG tablet Discontinued 81 mg PO DAILY@0800 July 21, 2018 12:00am November 04, 2021 1:59pm baclofen 10 mg oral tablet (11 sources) gamma-Aminobutyric Acid-ergic Agonist Start: 05-05-2023 End: 07-10-2024 Start: 05-05-2023 End: 07-10-2024 take 1 tablet by mouth at bedtime Baclofen 10 mg tablet Discontinued 10 mg PO AT BEDTIME May 05, 2023 1:00am July 10, 2024 1:44pm doxycycline monohydrate 100 mg oral capsule (20 sources) Tetracycline-class Drug Start: 10-21-2024 End: 11-01-2024 Start: 10-21-2024 End: 10-21-2024 take 1 capsule by mouth every twelve hours Doxycycline Monohydrate 100 mg Capsule Discontinued 100 mg PO EVERY 12 HOURS 0 9 0 October 21, 2024 12:00am October 21, 2024 1:58pm Start: 09-25-2022 End: 10-09-2022 famotidine 20 mg oral tablet (19 sources) Histamine-2 Receptor Antagonist Start: 10-21-2024 End: 11-24-2024 Start: 09-25-2022 End: 07-31-2024 ferrous sulfate 325 mg oral tablet (7 sources) Start: 10-21-2024 End: 11-01-2024 Start: 10-21-2024 End: 11-01-2024 Ferrous Sulfate (Ferosul) 32 5 mg (65 mg iron) Tablet Discontinued 325 mg PO 1200,1700 0 20 0 October 21, 2024 12:00am November 01, 2024 12:44pm supplement hydroxyurea 500 mg oral caps ule (20 sources) Antimetabolite Start: 06-24-2020 End: 11-24-2024 Start: 06-24-2020 End: 08-22-2024 take 2 capsules by mouth once daily Hydroxyurea 500 mg capsule Discontinued 1000 mg PO .COMPLEX 120 0 June 27, 2024 5:07pm July 31, 2024 11:33am Essential thrombocythemia Essential (hemorrhagic) thrombocythemia 1,000 mg orally; Daily except for Sundays and Wednesdays Start: 06-24-2020 End: 09-03-2022 take 1 tablet by mouth once daily Hydroxyurea Discontinued 1000 MG PO DAILY 120 90 February 06, 2021 3:31pm May 07, 2021 12:03am Take 1000 mg (2 tablets) by mouth on Mondays, Tuesdays, , Fridays and Saturdays. Start: 07-18-2018 End: 08-28-2019 Start: 07-18-2018 End: 08-28-2019 Start: 07-18-2018 End: 08-28-2019 take 1000 mg by mouth once daily Hydroxyurea Discontinued 500 MG PO MOTUTHFRSA December 02, 2018 12:48pm August 28, 2019 8:38am 1000 MG PO DAILY ON MON, WED, , WED & SAT. NO MEDICATION ON WED & WED. losartan potassium 100 mg or al tablet (20 sources) Angiotensin 2 Receptor Elizabeth Start: 06-06-2018 End: 11-24-2024 Start: 08-04-2013 End: 04-19-2014 meloxicam 7.5 mg oral tablet (12 sources) Nonsteroidal Anti-inflammatory Drug Start: 09-25-2022 End: 07-10-2024 ondansetron 4 mg disintegrating oral tablet (19 sources) Serotonin-3 Receptor Antagonist Start: 11-01-2024 End: 11-24-2024 Start: 10-21-2024 take 4 mg intravenou sly every six hours as needed for nausea Ondansetron Hcl (Pf) 4 mg/2 mL Solution Active 4 mg IV EVERY 6 HOURS NEEDED as needed for Nausea/Vomiting 0 3 0 October 21, 2024 12:00am Start: 10-09-2022 End: 07-31-2024 Start: 10-09-2022 End: 07-31-2024 take 2 tablets [...] 11:00pm oxyCODONE hydrochloride 5 mg oral tablet (20 sources) Opioid Agonist Start: 11-24-2024 End: 12-04-2024 Start: 11-24-2024 End: 11-28-2024 take 5-10 mg [...] artificial knee joint Start: 10-21-2024 End: 10-21-2024 Start: 10-21-2024 End: 10-21-2024 Start: 10-21-2024 End: 10-21-2024 Start: 10-21-2024 End: 10-21-2024 Start: 10-21-2024 End: 10-21-2024 take 5-10 mg [...] left artificial knee joint Start: 10-21-2024 End: 11-28-2024 Start: 10-21-2024 End: 11-24-2024 Oxycodone 5 mg Tablet Discon tinued 5 - 10 mg PO EVERY 4 HOURS NEEDED as needed for Pain Score October 21, 2024 12:00am November 24, 2024 1:57pm take 1 tab for pain score, 3-5, take 2 tabs for pain score 6-10 Start: 09-25-2022 End: 05-05-2023 Start: 09-25-2022 End: 05-05-2023 take 1 tablet by mouth every four hours as needed for pain Oxycodone 5 mg Tablet Discontinued 5 mg PO EVERY 4 HOURS NEEDED as needed for Pain Score 6-10 42 7 0 October 09, 2022 May 05, 2023 2:50pm Fracture of left hip requiring operative repair polyethylene glycol 3350 19238 mg powder for oral solution (7 sources) Osmotic Laxative Start: 10-21-2024 End: 11-01-2024 rivaroxaban 10 mg oral tablet (16 sources) Factor Xa Inhibitor Start: 04-19-2014 End: 05-07-2014 Senna-Docusate Sodium tablet (2 sources) Start: 11-01-2024 End: 11-24-2024 Senna-Docusate Sodium tablet Discontinued 2 {tbl} PO TWICE A DAY November 01, 2024 12:00am November 24, 2024 1:57pm Start: 11-01-2024 Senna-Docusate Sodium tablet Active 2 {tbl} PO TWICE A DAY November 01, 2024 12:00am (4 sources) Start: 11-01-2024 End: 11-24-2024 Problems Problem Classification Problem Date Documented Date Episodic/Chronic Administrative/socia l admission (20 sources) Education and/or schooling finding; Translations: [Problems related to education and literacy, unspecified] Episodic Anxiety disorders (16 sources) Anxiety; Translations: [Anxiety disorder, unspecified] 09-01-2018 Chronic Calculus of urinary tract (13 sources) Kidney stone; Translations: [Calculus of kidney] Onset: 5 10-21-2024 Episodic Coagulation and hemorrhagic disorders (1 source) Thrombocytopenia, unspecified; Translations: [Thrombocytopenia, unspecified] Onset: 5 Chronic Deficiency and other anemia (20 sources) Anemia; Translations: [Anemia, unspecified] 10-21-2024 Episodic [...] count, unspecified] Chronic Disorders of lipid metabolism (20 sources) Hyperlipidemia; Translations: [Hyperlipidemia, unspecified] 09-01-2018 Chronic E Codes: Fall (16 sources) Fall; Translations: [Unspecified fall, initial encounter] 09-01-2018 Episodic Essential hypertension (20 sources) Hypertensive disorder; Translations: [Essential (primary) hypertension] Onset: 5 09-01-2018 Chronic Fracture of lower limb (1 source) Unspecified fracture of lower end of left tibia, subsequent encounter for closed fracture with routine healing; Translations: [Unspecified fracture of lower end of left tibia, subsequent encounter for closed fracture with routine healing] Onset: 5 Episodic Fracture of neck of femur (hip) (16 sources) Fracture of bone of hip region; Translations: [Fracture of unspecified part of neck of left femur, initial encounter for closed fracture] 09-01-2018 Episodic Malaise and fatigue (20 sources) Asthenia; Translations: [Other malaise] Onset: 5 10-22-2022 Episodic Neoplasms of unspecified nature or uncertain behavior (20 sources) Essential thrombocythemia; Translations: [Essential (hemorrhagic) thrombocythemia] Onset: 5 Chronic Comment on above: Britton 2+ Neoplasms of unspecified nature or uncertain behavior (20 sources) Myeloproliferative disorder; Translations: [Chronic myeloproliferative disease] Onset: 5 Episodic Nutritional deficiencies (19 sources) Vitamin D deficiency; Translations: [Vitamin D deficiency, unspecified] Onset: 5 10-22-2022 Chronic Comment on above: ON SUPPLEMENT Osteoarthritis (2 sources) Unilateral post-traumatic osteoarthritis, left knee; Translations: [Unilateral primary osteoarthritis, left knee] Onset: 5 Chronic Other aftercare (2 sources) Aftercare following joint replacement surgery; Translations: [Aftercare following joint replacement surgery] Onset: 5 Chronic Other connective tissue disease (20 sources) History of total knee arthroplasty; Translations: [Presence of right artificial knee joint] 10-22-2022 Chronic Other connective tissue disease (1 source) Presence of right artificial knee joint; Translations: [Knee joint replacement] 10-14-2022 Chronic Other connective tissue disease (2 sources) Presence of left artificial knee joint; Translations: [Presence of left artificial knee joint] Onset: 5 Chronic Other connective tissue disease (2 sources) Muscle wasting and atrophy, not elsewhere classified, right lower leg; Translations: [Muscle wasting and atrophy, not elsewhere classified, right lower leg] Onset: Episodic Other hematologic conditions (20 sources) Erythrocytosis; Translations: [Secondary polycythemia] 09-01-2018 Episodic Other hematologic conditions (5 sources) Secondary polycythemia; Translations: [Polycythemia, secondary] Episodic Other nervous system disorders (4 sources) Chronic pain; Translations: [Other chronic pain] 12-27-2024 Chronic Other nutritional; endocrine; and metabolic disorders (12 sources) Body mass index 30+ - obesity; Translations: [Body mass index (BMI) 33.0-33.9, adult] 10-22-2022 Chronic Other nutritional; endocrine; and metabolic disorders (1 source) Body mass index (BMI) 33.0-33.9, adult; Translations: [Body Mass Index 33.0-33.9, adult] 10-14-2022 Chronic Other screening for suspected conditions (not mental disorders or infectious disease) (16 sources) Electrocardiogram abnormal; Translations: [Abnormal electrocardiogram [ECG] [EKG]] 09-20-2024 Episodic Thyroid disorders (20 sources) Hypothyroidism; Translations: [Hypothyroidism, unspecified] Onset: 09-01-2018 Chronic Unclassified (1 source) new patient/hospital follow up Results Test Name Value Interpretation Reference Range Facility CBC W/Diff, Automatedon 11-0 Absolute Neut Normal 2.0-7.7 [facility] Comment on above: Result Comment: OK T O CANCEL PER DR PATE Performed By: #### L 500.4050, L100.0100 ####[facility] [id number] [place], [place], [id number] HCT Normal 37-47 [facility] Comment on above: Result Comment: OK T O CANCEL PER DR PATE Performed By: #### L 500.4050, L100.0100 ####[facility] [id number] [place], [address] HGB Normal 12.0-15.0 [facility] Comment on above: Result Comment: OK T O CANCEL PER DR PATE Performed By: #### L [id number], L100.0100 ####[facility] [id number] [place], [address] MCH Normal 27.0-32.0 [facility] Comment on above: Result Comment: OK T O CANCEL PER DR PATE Performed By: #### L 500.4050, L100.0100 ####[facility] [id number] [place], [address] MCHC Normal 32-36 [facility] Comment on above: Result Comment: OK T O CANCEL PER DR PATE Performed By: #### L [id number], L100.0100 ####[facility] [id number] [place], [address] MCV Normal 81-99 [facility] Comment on above: Result Comment: OK T O CANCEL PER DR PATE Performed By: #### L 500.4050, L100.0100 ####[facility] [id number] [place], [address] NEUT% Normal 47-70 [facility] Comment on above: Result Comment: OK T O CANCEL PER DR PATE Performed By: #### L 500.4050, L100.0100 ####[facility] [address] [place], [address] PLT Normal 150-450 [facility] Comment on above: Result Comment: OK T O CANCEL PER DR PATE Performed By: #### L 500.4050, L100.0100 ####[facility] [address] [place], [address] RBC Normal 4.2-5.4 [facility] Comment on above: Result Comment: OK T O CANCEL PER DR PATE Performed By: #### L 500.4050, L100.0100 ####[facility] [address] [place], [address] RDW CV Normal 11.6-14.6 [facility] Comment on above: Result Comment: OK T O CANCEL PER DR PATE Performed By: #### L 500.4050, L100.0100 ####[facility] [id number] [place], [address] RDW SD Normal 35.1-43.9 [facility] Comment on above: Result Comment: OK T O CANCEL PER DR PATE Performed By: #### L 500.4050, L100.0100 ####[facility] [address] [place], [address] WBC Normal 4.4-11.0 [facility] Comment on above: Result Comment: OK T O CANCEL PER DR PATE Performed By: #### L [id number], L100.0100 ####[facility] [id number] [place], [address] Comprehensive Metabolic Prof ilon 01-24-2025 ALB Normal 3.4-4.8 [facility] Comment on above: Result Comment: OK T O CANCEL PER DR PATE Performed By: #### L 500.4050, L100.0100 ####[facility] [id number] [place], [address] ALK PHOS Normal 35-104 [facility] Comment on above: Result Comment: OK T O CANCEL PER DR PATE Performed By: #### L 500.4050, L100.0100 ####[facility] [address] [place], [address] ALT Normal <=34 [facility] Comment on above: Result Comment: OK T O CANCEL PER DR PATE Performed By: #### L 500.4050, L100.0100 ####[facility] [address] [place], [address] AST Normal <=31 [facility] Comment on above: Result Comment: OK T O CANCEL PER DR PATE Performed By: #### L 500.4050, L100.0100 ####[facility] [address] [place], [address] BUN Normal 4-19 [facility] Comment on above: Result Comment: OK T O CANCEL PER DR PATE Performed By: #### L 500.4050, L100.0100 ####[facility] [id number] [place], [address] BUN/CRE Normal 10-20 [facility] Comment on above: Result Comment: OK T O CANCEL PER DR PATE Performed By: #### L 500.4050, L100.0100 ####[facility] [id number] [place], [address] Calcium Normal 7.6-11.0 [facility] Comment on above: Result Comment: OK T O CANCEL PER DR PATE Performed By: #### L 500.4050, L100.0100 ####[facility] [id number] [place], [address] CL Normal 98-108 [facility] Comment on above: Result Comment: OK T O CANCEL PER DR PATE Performed By: #### L [id number], L100.0100 ####[facility] [id number] [place], [address] CO2 Normal 21.0-32.0 [facility] Comment on above: Result Comment: OK T O CANCEL PER DR PATE Performed By: #### L [id number], L100.0100 ####[facility] [address], [address] CREAT,SERUM Normal 0.70-1.20 [facility] Comment on above: Result Comment: OK T O CANCEL PER DR PATE Performed By: #### L 500.4050, L100.0100 ####[facility] [id number] [place], [address] eGFR Normal >60 [facility] Comment on above: Result Comment: OK T O CANCEL PER DR PATE Performed By: #### L [id number], L100.0100 ####[facility] [address] [place], [address] GAP Normal 5-15 [facility] Comment on above: Result Comment: OK T O CANCEL PER DR PATE Performed By: #### L [id number], L100.0100 ####[facility] [id number] [place], [address] GLU Normal 70-99 [facility] Comment on above: Result Comment: OK T O CANCEL PER DR PATE Performed By: #### L [id number], L100.0100 ####[facility] [address] [place], [address] Potassium Normal 3.3-5.1 [facility] Comment on above: Result Comment: OK T O CANCEL PER DR PATE Performed By: #### L [id number], L100.0100 ####[facility] [address] [place], [address] T BILI Normal 0.00-1.30 [facility] Comment on above: Result Comment: OK T O CANCEL PER DR PATE Performed By: #### L 500.4050, L100.0100 ####[facility] [address] [place], [address] T PROT Normal 5.9-8.4 [facility] Comment on above: Result Comment: OK T O CANCEL PER DR PATE Performed By: #### L 500.4050, L100.0100 ####[facility] [address] [place], [address] Comprehensive Metabolic Profil Normal 133-145 [facility] Comment on above: Result Comment: OK T O CANCEL PER DR ISCKARUS Performed By: #### L 500.4050, L100.0100 ####[facility] [address] [place], [address] Oncology Visit Reporton 11-0 Oncology Visit Report Normal [facility] Absolute lymphocyte countOrd ered By: Irvin Mckenna on 01-10-2025 Lymphocytes Auto (Unsp spec) [#/Vol] 1.16 10*3/uL 0.83-4.51 [facility] Anion gap in Serum or Plasma Ordered By: Irvin Mckenna on 01-10-2025 Anion gap [Moles/Vol] 9 mmol/L 5- [facility] Automated lymphocyte count a s percentage of total leukocytesOrdered By: Irvin Mckenna on 01-10-2025 Lymphocytes/100 WBC Auto (Unsp spec) 34.3 % - [facility] BUN/creatinine ratioOrdered By: Irvin Mckenna on 01-10-2025 Urea nitrogen/Creatinine [Mass ratio] 20.4 mg/mg High 10- [facility] Basophil percentageOrdered B y: Irvin Mckenna on 01-10-2025 Basophils/100 WBC (Bld) 0.6 % 0-1 [facility] Carbon dioxide, total [Moles /volume] in Central venous bloodOrdered By: Irvin Mckenna on 01-10-2025 CO2 [Moles/Vol] 23.7 mmol/L 21.0-32.0 [facility] Chloride assayOrdered By: Layo Mckenna on 01-10-2025 Chloride [Moles/Vol] 104 mmol/L 98-108 [facility] Eosinophil percentageOrdered By: froyrochellejenni Mckenna on 01-10-2025 Eosinophils/100 WBC (Bld) 2.1 % 0-5 [facility] Erythrocyte distribution wid th ratioOrdered By: Irvin Mckenna on 01-10-2025 Erythrocyte distribution width (RBC) [Ratio] 14.9 % High 11.6-14.6 [facility] Erythrocyte distribution wid th standard deviationOrdered By: Irvin Mckenna on 01-10-2025 Erythrocyte distribution width (RBC) [Ratio] 61.7 fl High 35.1-43.9 [facility] Glomerular filtration rate ( GFR) estimation/1.73 sq m using serum, plasma, or whole bOrdered By: Irvin Mckenna on 01-10-2025 GFR/1.73 sq M.predicted among non-blacks MDRD (S/P/Bld) [Vol rate/Area] 76 mL/min/{1.73_m2} >60 [facility] Hematocrit Auto (Bld) [Volum e fraction]Ordered By: Irvin Mckenna on 01-10-2025 Hematocrit (Bld) [Volume fraction] 30.0 % Low 37-47 [facility] Hemoglobin measurementOrdere d By: Irvin Mckenna on 01-10-2025 Hemoglobin (Bld) [Mass/Vol] 9.9 g/dL Low 12.0-15.0 [facility] Immature granulocytes/100 WB C Auto (Bld)Ordered By: Irvin Mckenna on 01-10-2025 Immature granulocytes/100 WBC (Bld) 0.600 % 0.0-0.9 [facility] MCV (mean corpuscular volume ) determinationOrdered By: Irvin Mckenna on 01-10-2025 MCV (RBC) [Entitic vol] 112.8 fL High 81-99 [facility] Mean corpuscular hemoglobin (MCH) determinationOrdered By: beatris Mckenna on 01-10-2025 MCH (RBC) [Entitic mass] 37.2 pg High 27.0-32.0 [facility] Monocyte percentageOrdered B y: Irvin Mckenna on 01-10-2025 Monocytes/100 WBC (Bld) 6.2 % 0-10 [facility] Neutrophil percentageOrdered By: Irvin Mckenna on 01-10-2025 Neutrophils/100 WBC (Bld) 56.2 % 47-70 [facility] Platelet countOrdered By: Layo Mckenna on 01-10-2025 Platelets (Bld) [#/Vol] 158 10*3/uL 150-450 [facility] Potassium measurement (mass/ volume)Ordered By: Irvin Mckenna on 01-10-2025 Potassium (Unsp spec) [Mass/Vol] 3.8 mmol/L 3.3-5.1 [facility] RBC Auto (Bld) [#/Vol]Ordere d By: Irvin Mckenna on 01-10-2025 RBC (Bld) [#/Vol] 2.66 10*6/uL Low 4.2-5.4 [facility] Serum creatinine measurement (mass/volume)Ordered By: Anupamcandicejenni Mezajerilynelier on 01-10-2025 Creatinine [Mass/Vol] 0.78 mg/dL 0.70-1.20 [facility] Serum glucose measurement (m ass/volume)Ordered By: Irvin Mezajerilynelier on 01-10-2025 Glucose [Mass/Vol] 82 mg/dL 70-99 [facility] Serum or plasma calcium niels urement (mass/volume)Ordered By: Irvin Mezajerilynelier on 01-10-2025 Calcium [Mass/Vol] 8.9 mg/dL 7.6-11.0 [facility] Serum or plasma urea nitroge n measurement (mass/volume)Ordered By: Layofroycandicejenni Mezajerilynelier on 01-10-2025 Urea nitrogen [Mass/Vol] 16 mg/dL 4-19 [facility] Sodium levelOrdered By: Anupam hearn Derrickjerilynelier on 01-10-2025 Sodium [Moles/Vol] 137 mmol/L 133-145 [facility] White blood cell (WBC) count Ordered By: Layofroycandicejenni Mezajerilynelier on 01-10-2025 WBC (Bld) [#/Vol] 3.4 10*3/uL Low 4.4-11.0 [facility] Absolute lymphocyte countOrd ered By: Layofroycandicejenni Mezajerilynelier on 01-03-2025 Lymphocytes Auto (Unsp spec) [#/Vol] 1.09 10*3/uL 0.83-4.51 [facility] Anion gap in Serum or Plasma Ordered By: Layobeatris Mezajerilynelier on 01-03-2025 Anion gap [Moles/Vol] 11 mmol/L 5-15 [facility] Automated lymphocyte count a s percentage of total leukocytesOrdered By: Irvin Mezajerilynelier on 01-03-2025 Lymphocytes/100 WBC Auto (Unsp spec) 29.4 % 19-41 [facility] BUN/creatinine ratioOrdered By: Layofroycandicejenni Mezajerilynelier on 01-03-2025 Urea nitrogen/Creatinine [Mass ratio] 18.6 mg/mg 10-20 [facility] Basophil percentageOrdered B y: Anupamcandicejenni Mezajerilynelier on 01-03-2025 Basophils/100 WBC (Bld) 0.5 % 0-1 [facility] Carbon dioxide, total [Moles /volume] in Central venous bloodOrdered By: beatris Mckenna on 01-03-2025 CO2 [Moles/Vol] 22.3 mmol/L 21.0-32.0 [facility] Chloride assayOrdered By: Layo froynadiya Mckenna on 01-03-2025 Chloride [Moles/Vol] 103 mmol/L 98-108 [facility] Eosinophil percentageOrdered By: Irvin Mckenna on 01-03-2025 Eosinophils/100 WBC (Bld) 1.6 % 0-5 [facility] Erythrocyte distribution wid th ratioOrdered By: froycandicejenni Mckenna on 01-03-2025 Erythrocyte distribution width (RBC) [Ratio] 14.7 % High 11.6-14.6 [facility] Erythrocyte distribution wid th standard deviationOrdered By: beatris Mezajerilynelier on 01-03-2025 Erythrocyte distribution width (RBC) [Ratio] 61.6 fl High 35.1-43.9 [facility] Glomerular filtration rate ( GFR) estimation/1.73 sq m using serum, plasma, or whole bOrdered By: Irvin Mckenna on 01-03-2025 GFR/1.73 sq M.predicted among non-blacks MDRD (S/P/Bld) [Vol rate/Area] 57 mL/min/{1.73_m2} Low >60 [facility] Hematocrit Auto (Bld) [Volum e fraction]Ordered By: Irvin Mckenna on 01-03-2025 Hematocrit (Bld) [Volume fraction] 30.5 % Low 37-47 [facility] Hemoglobin measurementOrdere d By: Irvin Mckenna on 01-03-2025 Hemoglobin (Bld) [Mass/Vol] 10.1 g/dL Low 12.0-15.0 [facility] Immature granulocytes/100 WB C Auto (Bld)Ordered By: Layofroynadiya Derrickjerilynelier on 01-03-2025 Immature granulocytes/100 WBC (Bld) 0.500 % 0.0-0.9 [facility] MCV (mean corpuscular volume ) determinationOrdered By: Layobeatris Mezajerilynelier on 01-03-2025 MCV (RBC) [Entitic vol] 114.2 fL High 81-99 [facility] Mean corpuscular hemoglobin (MCH) determinationOrdered By: Layofroycandicejenni Mezajerilynelier on 01-03-2025 MCH (RBC) [Entitic mass] 37.8 pg High 27.0-32.0 [facility] Monocyte percentageOrdered B y: Layofroycandicejenni Mezajerilynelier on 01-03-2025 Monocytes/100 WBC (Bld) 8.6 % 0-10 [facility] Neutrophil percentageOrdered By: Anupamcandicejenni Mezajerilynelier on 01-03-2025 Neutrophils/100 WBC (Bld) 59.4 % 47-70 [facility] Platelet countOrdered By: Layo spear Derrickjerilynelier on 01-03-2025 Platelets (Bld) [#/Vol] 200 10*3/uL 150-450 [facility] Potassium measurement (mass/ volume)Ordered By: Layobeatris Mezajerilynelier on 01-03-2025 Potassium (Unsp spec) [Mass/Vol] 3.9 mmol/L 3.3-5.1 [facility] RBC Auto (Bld) [#/Vol]Ordere d By: Irvin Derrickjerilynelier on 01-03-2025 RBC (Bld) [#/Vol] 2.67 10*6/uL Low 4.2-5.4 [facility] Serum creatinine measurement (mass/volume)Ordered By: Irvin Mckenna on 01-03-2025 Creatinine [Mass/Vol] 0.99 mg/dL 0.70-1.20 [facility] Serum glucose measurement (m ass/volume)Ordered By: Irvin Mckenna on 01-03-2025 Glucose [Mass/Vol] 81 mg/dL 70-99 [facility] Serum or plasma calcium niels urement (mass/volume)Ordered By: Irvin Mckenna on 01-03-2025 Calcium [Mass/Vol] 9.4 mg/dL 7.6-11.0 [facility] Serum or plasma urea nitroge n measurement (mass/volume)Ordered By: Irvin Mckenna on 01-03-2025 Urea nitrogen [Mass/Vol] 19 mg/dL 4-19 [facility] Sodium levelOrdered By: Anupam nadiya Bala on 01-03-2025 Sodium [Moles/Vol] 136 mmol/L 133-145 [facility] White blood cell (WBC) count Ordered By: Irvin Mckenna on 01-03-2025 WBC (Bld) [#/Vol] 3.7 10*3/uL Low 4.4-11.0 [facility] Absolute lymphocyte countOrd ered By: Irvin Mckenna on 12-28-2024 Lymphocytes Auto (Unsp spec) [#/Vol] 1.22 10*3/uL 0.83-4.51 [facility] Anion gap in Serum or Plasma Ordered By: Irvin Mckenna on 12-28-2024 Anion gap [Moles/Vol] 9 mmol/L - [facility] Automated lymphocyte count a s percentage of total leukocytesOrdered By: Irvin Mckenna on 12-28-2024 Lymphocytes/100 WBC Auto (Unsp spec) 35.5 % 19-41 [facility] BUN/creatinine ratioOrdered By: Irvin Mckenna on 12-28-2024 Urea nitrogen/Creatinine [Mass ratio] 18.4 mg/mg 10-20 [facility] Basophil percentageOrdered B y: Irvin Mckenna on 12-28-2024 Basophils/100 WBC (Bld) 0.9 % 0-1 [facility] Blood manual differential co mment interpretation (narrative result)Ordered By: Irvin Mckenna on 12-28-2024 Manual differential comment Jack (Bld) [Interp] SCANNED [facility] Blood stomatocytes detection by light microscopyOrdered By: Irvin Mckenna on 12-28-2024 Stomatocytes LM Ql (Bld) RARE [facility] Carbon dioxide, total [Moles /volume] in Central venous bloodOrdered By: Irvin Mckenna on 12-28-2024 CO2 [Moles/Vol] 22.7 mmol/L 21.0-32.0 [facility] Chloride assayOrdered By: Layo Mckenna on 12-28-2024 Chloride [Moles/Vol] 104 mmol/L 98-108 [facility] Eosinophil percentageOrdered By: Irvin Mckenna on 12-28-2024 Eosinophils/100 WBC (Bld) 1.2 % 0-5 [facility] Erythrocyte distribution wid th ratioOrdered By: Irvin Mckenna on 12-28-2024 Erythrocyte distribution width (RBC) [Ratio] 15.2 % High 11.6-14.6 [facility] Erythrocyte distribution wid th standard deviationOrdered By: Irvin Mckenna on 12-28-2024 Erythrocyte distribution width (RBC) [Ratio] 65.6 fl High 35.1-43.9 [facility] Glomerular filtration rate ( GFR) estimation/1.73 sq m using serum, plasma, or whole bOrdered By: Irvni Mckenna on 12-28-2024 GFR/1.73 sq M.predicted among non-blacks MDRD (S/P/Bld) [Vol rate/Area] 42 mL/min/{1.73_m2} Low >60 [facility] Hematocrit Auto (Bld) [Volum e fraction]Ordered By: Irvin Mckenna on 12-28-2024 Hematocrit (Bld) [Volume fraction] 30.1 % Low 37-47 [facility] Hemoglobin measurementOrdere d By: Irvin Mckenna on 12-28-2024 Hemoglobin (Bld) [Mass/Vol] 9.7 g/dL Low 12.0-15.0 [facility] Immature granulocytes/100 WB C Auto (Bld)Ordered By: Irvin Mckenna on 12-28-2024 Immature granulocytes/100 WBC (Bld) 0.600 % 0.0-0.9 [facility] MCV (mean corpuscular volume ) determinationOrdered By: Irvin Mckenna on 12-28-2024 MCV (RBC) [Entitic vol] 117.1 fL High 81-99 [facility] Mean corpuscular hemoglobin (MCH) determinationOrdered By: Irvin Mckenna on 12-28-2024 MCH (RBC) [Entitic mass] 37.7 pg High 27.0-32.0 [facility] Monocyte percentageOrdered B y: Irvin Mckenna on 12-28-2024 Monocytes/100 WBC (Bld) 11.3 % High 0-10 [facility] Neutrophil percentageOrdered By: Irvin Mckenna on 12-28-2024 Neutrophils/100 WBC (Bld) 50.5 % 47-70 [facility] Platelet countOrdered By: Layo Mckenna on 12-28-2024 Platelets (Bld) [#/Vol] 233 10*3/uL 150-450 [facility] Potassium measurement (mass/ volume)Ordered By: Irvin Mckenna on 12-28-2024 Potassium (Unsp spec) [Mass/Vol] 4.7 mmol/L 3.3-5.1 [facility] RBC Auto (Bld) [#/Vol]Ordere d By: Irvin Mckenna on 12-28-2024 RBC (Bld) [#/Vol] 2.57 10*6/uL Low 4.2-5.4 [facility] Serum creatinine measurement (mass/volume)Ordered By: Irvin Mckenna on 12-28-2024 Creatinine [Mass/Vol] 1.29 mg/dL High 0.70-1.20 [facility] Serum glucose measurement (m ass/volume)Ordered By: Irvin Mckenna on 12-28-2024 Glucose [Mass/Vol] 82 mg/dL 70-99 [facility] Serum or plasma calcium niels urement (mass/volume)Ordered By: Irvin Mckenna on 12-28-2024 Calcium [Mass/Vol] 9.0 mg/dL 7.6-11.0 [facility] Serum or plasma urea nitroge n measurement (mass/volume)Ordered By: Irvin Mckenna on 12-28-2024 Urea nitrogen [Mass/Vol] 24 mg/dL High 4-19 [facility] Sodium levelOrdered By: Anupam nadiya Bala on 12-28-2024 Sodium [Moles/Vol] 136 mmol/L 133-145 [facility] White blood cell (WBC) count Ordered By: Irvin Mckenna on 12-28-2024 WBC (Bld) [#/Vol] 3.4 10*3/uL Low 4.4-11.0 [facility] Absolute lymphocyte countOrd ered By: Irvin Mckenna on 12-20-2024 Lymphocytes Auto (Unsp spec) [#/Vol] 0.83 10*3/uL 0.83-4.51 [facility] Anion gap in Serum or Plasma Ordered By: Irvin Mckenna on 12-20-2024 Anion gap [Moles/Vol] 11 mmol/L 5-15 [facility] Automated lymphocyte count a s percentage of total leukocytesOrdered By: Irvin Mckenna on 12-20-2024 Lymphocytes/100 WBC Auto (Unsp spec) 19.3 % 19-41 [facility] BUN/creatinine ratioOrdered By: Irvin Mckenna on 12-20-2024 Urea nitrogen/Creatinine [Mass ratio] 17.8 mg/mg 10-20 [facility] Basophil percentageOrdered B y: Irvin Mckenna on 12-20-2024 Basophils/100 WBC (Bld) 0.5 % 0-1 [facility] Carbon dioxide, total [Moles /volume] in Central venous bloodOrdered By: Irvin Mckenna on 12-20-2024 CO2 [Moles/Vol] 20.7 mmol/L Low 21.0-32.0 [facility] Chloride assayOrdered By: Layo Mckenna on 12-20-2024 Chloride [Moles/Vol] 104 mmol/L 98-108 [facility] Eosinophil percentageOrdered By: Irvin Mckenna on 12-20-2024 Eosinophils/100 WBC (Bld) 1.2 % 0-5 [facility] Erythrocyte distribution wid th ratioOrdered By: Irvin Mckenna on 12-20-2024 Erythrocyte distribution width (RBC) [Ratio] 15.6 % High 11.6-14.6 [facility] Erythrocyte distribution wid th standard deviationOrdered By: Irvin Mckenna on 12-20-2024 Erythrocyte distribution width (RBC) [Ratio] 66.5 fl High 35.1-43.9 [facility] Glomerular filtration rate ( GFR) estimation/1.73 sq m using serum, plasma, or whole bOrdered By: Irvin Mckenna on 12-20-2024 GFR/1.73 sq M.predicted among non-blacks MDRD (S/P/Bld) [Vol rate/Area] 58 mL/min/{1.73_m2} Low >60 [facility] Hematocrit Auto (Bld) [Volum e fraction]Ordered By: Irvin Mckenna on 12-20-2024 Hematocrit (Bld) [Volume fraction] 28.0 % Low 37-47 [facility] Hemoglobin measurementOrdere d By: Irvin Mckenna on 12-20-2024 Hemoglobin (Bld) [Mass/Vol] 9.1 g/dL Low 12.0-15.0 [facility] Immature granulocytes/100 WB C Auto (Bld)Ordered By: Irvin Mckenna on 12-20-2024 Immature granulocytes/100 WBC (Bld) 0.500 % 0.0-0.9 [facility] MCV (mean corpuscular volume ) determinationOrdered By: Irvin Mckenna on 12-20-2024 MCV (RBC) [Entitic vol] 116.2 fL High 81-99 [facility] Mean corpuscular hemoglobin (MCH) determinationOrdered By: Irvin Mckenna on 12-20-2024 MCH (RBC) [Entitic mass] 37.8 pg High 27.0-32.0 [facility] Monocyte percentageOrdered B y: Irvin Mckenna on 12-20-2024 Monocytes/100 WBC (Bld) 9.1 % 0-10 [facility] Neutrophil percentageOrdered By: Irvin Mckenna on 12-20-2024 Neutrophils/100 WBC (Bld) 69.4 % 47-70 [facility] No Panel InformationOrdered By: Irvin Walkere on 12-20-2024 1+ [facility] Platelet countOrdered By: Layo beatris Derrickjerilynelier on 12-20-2024 Platelets (Bld) [#/Vol] 281 10*3/uL 150-450 [facility] Potassium measurement (mass/ volume)Ordered By: Anupamcandicejenni Mckenna on 12-20-2024 Potassium (Unsp spec) [Mass/Vol] 4.3 mmol/L 3.3-5.1 [facility] RBC Auto (Bld) [#/Vol]Ordere d By: Anupamcandicejenni Mckenna on 12-20-2024 RBC (Bld) [#/Vol] 2.41 10*6/uL Low 4.2-5.4 [facility] Serum creatinine measurement (mass/volume)Ordered By: Anupamcandicejenni Mckenna on 12-20-2024 Creatinine [Mass/Vol] 0.98 mg/dL 0.70-1.20 [facility] Serum glucose measurement (m ass/volume)Ordered By: Irvin Mckenna on 12-20-2024 Glucose [Mass/Vol] 80 mg/dL 70-99 [facility] Serum or plasma calcium niels urement (mass/volume)Ordered By: Irvin Mckenna on 12-20-2024 Calcium [Mass/Vol] 8.9 mg/dL 7.6-11.0 [facility] Serum or plasma urea nitroge n measurement (mass/volume)Ordered By: Irvin Mckenna on 12-20-2024 Urea nitrogen [Mass/Vol] 18 mg/dL 4-19 [facility] Sodium levelOrdered By: Anupam hearn Bala on 12-20-2024 Sodium [Moles/Vol] 135 mmol/L 133-145 [facility] White blood cell (WBC) count Ordered By: Irvin Mckenna on 12-20-2024 WBC (Bld) [#/Vol] 4.3 10*3/uL Low 4.4-11.0 [facility] Absolute lymphocyte countOrd ered By: Irvin Mckenna on 12-13-2024 Lymphocytes Auto (Unsp spec) [#/Vol] 0.72 10*3/uL Low 0.83-4.51 [facility] Anion gap in Serum or Plasma Ordered By: Irvin Mckenna on 12-13-2024 Anion gap [Moles/Vol] 11 mmol/L 5-15 [facility] Automated lymphocyte count a s percentage of total leukocytesOrdered By: Ivrin Mckenna on 12-13-2024 Lymphocytes/100 WBC Auto (Unsp spec) 17.1 % Low 19-41 [facility] BUN/creatinine ratioOrdered By: froyrochellejenni Mckenna on 12-13-2024 Urea nitrogen/Creatinine [Mass ratio] 18.2 mg/mg 10-20 [facility] Basophil percentageOrdered B y: Irvin Mckenna on 12-13-2024 Basophils/100 WBC (Bld) 0.5 % 0-1 [facility] Carbon dioxide, total [Moles /volume] in Central venous bloodOrdered By: Anupamrochellejenni Mckenna on 12-13-2024 CO2 [Moles/Vol] 21.8 mmol/L 21.0-32.0 [facility] Chloride assayOrdered By: Layo froynadiya Mckenna on 12-13-2024 Chloride [Moles/Vol] 101 mmol/L 98-108 [facility] Eosinophil percentageOrdered By: froyrochellejenni Mckenna on 12-13-2024 Eosinophils/100 WBC (Bld) 0.7 % 0-5 [facility] Erythrocyte distribution wid th ratioOrdered By: Irvin Mckenna on 12-13-2024 Erythrocyte distribution width (RBC) [Ratio] 15.6 % High 11.6-14.6 [facility] Erythrocyte distribution wid th standard deviationOrdered By: froyrochellejenni Mckenna on 12-13-2024 Erythrocyte distribution width (RBC) [Ratio] 67.1 fl High 35.1-43.9 [facility] Glomerular filtration rate ( GFR) estimation/1.73 sq m using serum, plasma, or whole bOrdered By: Irvin Mckenna on 12-13-2024 GFR/1.73 sq M.predicted among non-blacks MDRD (S/P/Bld) [Vol rate/Area] 66 mL/min/{1.73_m2} >60 [facility] Hematocrit Auto (Bld) [Volum e fraction]Ordered By: Irvin Mezajerilynelier on 12-13-2024 Hematocrit (Bld) [Volume fraction] 29.1 % Low 37-47 [facility] Hemoglobin measurementOrdere d By: Layofroynadiya Derrickmag on 12-13-2024 Hemoglobin (Bld) [Mass/Vol] 9.8 g/dL Low 12.0-15.0 [facility] Immature granulocytes/100 WB C Auto (Bld)Ordered By: Layofroycandicejenni Mezajerilynelier on 12-13-2024 Immature granulocytes/100 WBC (Bld) 0.500 % 0.0-0.9 [facility] MCV (mean corpuscular volume ) determinationOrdered By: Irvin Mezajerilynelier on 12-13-2024 MCV (RBC) [Entitic vol] 115.5 fL High 81-99 [facility] Mean corpuscular hemoglobin (MCH) determinationOrdered By: Layobeatris Mezajerilynelier on 12-13-2024 MCH (RBC) [Entitic mass] 38.9 pg High 27.0-32.0 [facility] Monocyte percentageOrdered B y: Irvin Derrickmag on 12-13-2024 Monocytes/100 WBC (Bld) 12.8 % High 0-10 [facility] Neutrophil percentageOrdered By: Layofroynadiya Derrickmag on 12-13-2024 Neutrophils/100 WBC (Bld) 68.4 % 47-70 [facility] No Panel InformationOrdered By: Anupamcandicejenni Mezajerilynelier on 12-13-2024 1+ [facility] Platelet countOrdered By: Layo beatris Derrickjerilynelier on 12-13-2024 Platelets (Bld) [#/Vol] 233 10*3/uL 150-450 [facility] Potassium measurement (mass/ volume)Ordered By: Layofroycandicejenni Mezajerilynelier on 12-13-2024 Potassium (Unsp spec) [Mass/Vol] 4.0 mmol/L 3.3-5.1 [facility] RBC Auto (Bld) [#/Vol]Ordere d By: Anupamcandicejenni Mezajerilynelier on 12-13-2024 RBC (Bld) [#/Vol] 2.52 10*6/uL Low 4.2-5.4 [facility] Serum creatinine measurement (mass/volume)Ordered By: Irvin Mckenna on 12-13-2024 Creatinine [Mass/Vol] 0.88 mg/dL 0.70-1.20 [facility] Serum glucose measurement (m ass/volume)Ordered By: Layofroynadiya Derrickmag on 12-13-2024 Glucose [Mass/Vol] 93 mg/dL 70-99 [facility] Serum or plasma calcium niels urement (mass/volume)Ordered By: Irvin Mckenna on 12-13-2024 Calcium [Mass/Vol] 9.0 mg/dL 7.6-11.0 [facility] Serum or plasma urea nitroge n measurement (mass/volume)Ordered By: Irvin Mckenna on 12-13-2024 Urea nitrogen [Mass/Vol] 16 mg/dL 4-19 [facility] Sodium levelOrdered By: Anupam Mckenna on 12-13-2024 Sodium [Moles/Vol] 134 mmol/L 133-145 [facility] White blood cell (WBC) count Ordered By: Irvin Mckenna on 12-13-2024 WBC (Bld) [#/Vol] 4.2 10*3/uL Low 4.4-11.0 [facility] Potassium measurement (mass/ volume)Ordered By: Irvin Mckenna on 12-08-2024 Potassium (Unsp spec) [Mass/Vol] 3.9 mmol/L 3.3-5.1 [facility] Absolute lymphocyte countOrd ered By: Irvin Mckenna on 12-06-2024 Lymphocytes Auto (Unsp spec) [#/Vol] 0.86 10*3/uL 0.83-4.51 [facility] Anion gap in Serum or Plasma Ordered By: Irvin Mckenna on 12-06-2024 Anion gap [Moles/Vol] 13 mmol/L 5-15 [facility] Automated lymphocyte count a s percentage of total leukocytesOrdered By: Layofroycandicejenni Mezamag on 12-06-2024 Lymphocytes/100 WBC Auto (Unsp spec) 23.6 % 19-41 [facility] BUN/creatinine ratioOrdered By: Layofroycandicejenni Mezajerilynelier on 12-06-2024 Urea nitrogen/Creatinine [Mass ratio] 13.2 mg/mg 10-20 [facility] Basophil percentageOrdered B y: Irvin Mckenna on 12-06-2024 Basophils/100 WBC (Bld) 0.3 % 0-1 [facility] Carbon dioxide, total [Moles /volume] in Central venous bloodOrdered By: Irvin Mckenna on 12-06-2024 CO2 [Moles/Vol] 24.6 mmol/L 21.0-32.0 [facility] Chloride assayOrdered By: Layo froynadiya Mckenna on 12-06-2024 Chloride [Moles/Vol] 100 mmol/L 98-108 [facility] Eosinophil percentageOrdered By: froyrochellejenni Mezajerilynelier on 12-06-2024 Eosinophils/100 WBC (Bld) 1.9 % 0-5 [facility] Erythrocyte distribution wid th ratioOrdered By: Layobeatris Mckenna on 12-06-2024 Erythrocyte distribution width (RBC) [Ratio] 16.0 % High 11.6-14.6 [facility] Erythrocyte distribution wid th standard deviationOrdered By: froyrochellejenni Mezajerilynelier on 12-06-2024 Erythrocyte distribution width (RBC) [Ratio] 66.8 fl High 35.1-43.9 [facility] Glomerular filtration rate ( GFR) estimation/1.73 sq m using serum, plasma, or whole bOrdered By: Irvin Mckenna on 12-06-2024 GFR/1.73 sq M.predicted among non-blacks MDRD (S/P/Bld) [Vol rate/Area] 83 mL/min/{1.73_m2} >60 [facility] Hematocrit Auto (Bld) [Volum e fraction]Ordered By: Irvin Mckenna on 12-06-2024 Hematocrit (Bld) [Volume fraction] 30.0 % Low 37-47 [facility] Hemoglobin measurementOrdere d By: Irvin Mckenna on 12-06-2024 Hemoglobin (Bld) [Mass/Vol] 10.1 g/dL Low 12.0-15.0 [facility] Immature granulocytes/100 WB C Auto (Bld)Ordered By: Irvin Walkerelier on 12-06-2024 Immature granulocytes/100 WBC (Bld) 0.300 % 0.0-0.9 [facility] MCV (mean corpuscular volume ) determinationOrdered By: Layofroycandicejenni Mezajerilynelier on 12-06-2024 MCV (RBC) [Entitic vol] 113.2 fL High 81-99 [facility] Mean corpuscular hemoglobin (MCH) determinationOrdered By: Layofroynadiya Derrickjerilynelier on 12-06-2024 MCH (RBC) [Entitic mass] 38.1 pg High 27.0-32.0 [facility] Monocyte percentageOrdered B y: Irvin Derrickmag on 12-06-2024 Monocytes/100 WBC (Bld) 12.9 % High 0-10 [facility] Neutrophil percentageOrdered By: Irvin Mezajerilynelier on 12-06-2024 Neutrophils/100 WBC (Bld) 61.0 % 47-70 [facility] No Panel InformationOrdered By: Anupamnadiya Derrickjerilynelier on 12-06-2024 RARE [facility] Platelet countOrdered By: Layo beatris Derrickmag on 12-06-2024 Platelets (Bld) [#/Vol] 272 10*3/uL 150-450 [facility] Potassium measurement (mass/ volume)Ordered By: Layobeatris Mezajerilynelier on 12-06-2024 Potassium (Unsp spec) [Mass/Vol] 3.0 mmol/L Low 3.3-5.1 [facility] RBC Auto (Bld) [#/Vol]Ordere d By: Krystinjenni Mezajerilynelier on 12-06-2024 RBC (Bld) [#/Vol] 2.65 10*6/uL Low 4.2-5.4 [facility] Serum creatinine measurement (mass/volume)Ordered By: Layobeatris Mezajerilynelier on 12-06-2024 Creatinine [Mass/Vol] 0.73 mg/dL 0.70-1.20 [facility] Serum glucose measurement (m ass/volume)Ordered By: Irvin Mckenna on 12-06-2024 Glucose [Mass/Vol] 87 mg/dL 70-99 [facility] Serum or plasma calcium niels urement (mass/volume)Ordered By: Krystinjenni Mezajerilynelier on 12-06-2024 Calcium [Mass/Vol] 9.2 mg/dL 7.6-11.0 [facility] Serum or plasma urea nitroge n measurement (mass/volume)Ordered By: Layofroycandicejenni Mezajerilynelier on 12-06-2024 Urea nitrogen [Mass/Vol] 10 mg/dL 4-19 [facility] Sodium levelOrdered By: Anupam Mckenna on 12-06-2024 Sodium [Moles/Vol] 137 mmol/L 133-145 [facility] White blood cell (WBC) count Ordered By: Irvin Derrickmag on 12-06-2024 WBC (Bld) [#/Vol] 3.6 10*3/uL Low 4.4-11.0 [facility] Basic Metabolic Profile (BMP )on 12-01-2024 BUN Normal 4-19 [facility] Comment on above: Result Comment: Canc elled via OM: Order cancelled - Patient discharged Performed By: #### L 100.0100, L500.2500 ####[facility] [address] [facility] [address] BUN/CRE Normal 10-20 [facility] Comment on above: Result Comment: Canc elled via OM: Order cancelled - Patient discharged Performed By: #### L 100.0100, L500.2500 ####[facility] [address] [place], [address] Calcium Normal 7.6-11.0 [facility] Comment on above: Result Comment: Canc elled via OM: Order cancelled - Patient discharged Performed By: #### L 100.0100, L500.2500 ####[facility] [address] [place], [address] CL Normal 98-108 [facility] Comment on above: Result Comment: Canc elled via OM: Order cancelled - Patient discharged Performed By: #### L 100.0100, L500.2500 ####[facility] [address] [place], [address] CO2 Normal 21.0-32.0 [facility] Comment on above: Result Comment: Canc elled via OM: Order cancelled - Patient discharged Performed By: #### L 100.0100, L500.2500 ####[facility] [address] [place], [address] CREAT,SERUM Normal 0.70-1.20 [facility] Comment on above: Result Comment: Canc elled via OM: Order cancelled - Patient discharged Performed By: #### L 100.0100, L500.2500 ####[facility] [address] [place], [address] eGFR Normal >60 [facility] Comment on above: Result Comment: Canc elled via OM: Order cancelled - Patient discharged Performed By: #### L 100.0100, L500.2500 ####[facility] [address] [place], [address] GAP Normal 5-15 [facility] Comment on above: Result Comment: Canc elled via OM: Order cancelled - Patient discharged Performed By: #### L 100.0100, L500.2500 ####[facility] [address] [place], [address] GLU Normal 70-99 [facility] Comment on above: Result Comment: Canc elled via OM: Order cancelled - Patient discharged Performed By: #### L 100.0100, L500.2500 ####[facility] [address] [place], [address] Potassium Normal 3.3-5.1 [facility] Comment on above: Result Comment: Canc elled via OM: Order cancelled - Patient discharged Performed By: #### L 100.0100, L500.2500 ####[facility] [address] [place], [address] Basic Metabolic Profile (BMP) Normal 133-145 [facility] Comment on above: Result Comment: Canc elled via OM: Order cancelled - Patient discharged Performed By: #### L 100.0100, L500.2500 ####[facility] [address], [address] CBC W/Diff, Automatedon - Absolute Neut Normal 2.0-7.7 [facility] Comment on above: Result Comment: Canc elled via OM: Order cancelled - Patient discharged Performed By: #### L 100.0100, L500.2500 ####[facility] [address] [place], [address] HCT Normal 37-47 [facility] Comment on above: Result Comment: Canc elled via OM: Order cancelled - Patient discharged Performed By: #### L 100.0100, L500.2500 ####[facility] [address] [place], [address] HGB Normal 12.0-15.0 [facility] Comment on above: Result Comment: Canc elled via OM: Order cancelled - Patient discharged Performed By: #### L 100.0100, L500.2500 ####[facility] [address] [place], [address] MCH Normal 27.0-32.0 [facility] Comment on above: Result Comment: Canc elled via OM: Order cancelled - Patient discharged Performed By: #### L 100.0100, L500.2500 ####[facility] [address] [place], [address] MCHC Normal 32-36 [facility] Comment on above: Result Comment: Canc elled via OM: Order cancelled - Patient discharged Performed By: #### L 100.0100, L500.2500 ####[facility] [address], [address] MCV Normal 81-99 [facility] Comment on above: Result Comment: Canc elled via OM: Order cancelled - Patient discharged Performed By: #### L 100.0100, L500.2500 ####[facility] [address] [place], [address] NEUT% Normal 47-70 [facility] Comment on above: Result Comment: Canc elled via OM: Order cancelled - Patient discharged Performed By: #### L 100.0100, L500.2500 ####[facility] [address], [address] PLT Normal 150-450 [facility] Comment on above: Result Comment: Canc elled via OM: Order cancelled - Patient discharged Performed By: #### L 100.0100, L500.2500 ####[facility] [address] [place], [address] RBC Normal 4.2-5.4 [facility] Comment on above: Result Comment: Canc elled via OM: Order cancelled - Patient discharged Performed By: #### L 100.0100, L500.2500 ####[facility] [address] [place], [address] RDW CV Normal 11.6-14.6 [facility] Comment on above: Result Comment: Canc elled via OM: Order cancelled - Patient discharged Performed By: #### L 100.0100, L500.2500 ####[facility] [address] [place], [address] RDW SD Normal 35.1-43.9 [facility] Comment on above: Result Comment: Canc elled via OM: Order cancelled - Patient discharged Performed By: #### L 100.0100, L500.2500 ####[facility] [address] [place], [address] WBC Normal 4.4-11.0 [facility] Comment on above: Result Comment: Canc elled via OM: Order cancelled - Patient discharged Performed By: #### L 100.0100, L500.2500 ####[facility] [address] [place], [address] Absolute lymphocyte countOrd ered By: Irvin Mckenna on 11-29-2024 Lymphocytes Auto (Unsp spec) [#/Vol] 0.83 10*3/uL 0.83-4.51 [facility] Anion gap in Serum or Plasma Ordered By: beatris Mckenna on 11-29-2024 Anion gap [Moles/Vol] 13 mmol/L 5-15 [facility] Automated lymphocyte count a s percentage of total leukocytesOrdered By: Irvin Mckenna on 11-29-2024 Lymphocytes/100 WBC Auto (Unsp spec) 21.6 % 19-41 [facility] BUN/creatinine ratioOrdered By: Irvin Mckenna on 11-29-2024 Urea nitrogen/Creatinine [Mass ratio] 10.7 mg/mg 10-20 [facility] Basophil percentageOrdered B y: Irvin Mckenna on 11-29-2024 Basophils/100 WBC (Bld) 0.3 % 0-1 [facility] Bilirubin, totalOrdered By: Irvin Mckenna on 11-29-2024 Bilirubin [Mass/Vol] 0.57 mg/dL 0.00-1.30 [facility] Carbon dioxide, total [Moles /volume] in Central venous bloodOrdered By: beatris Mckenna on 11-29-2024 CO2 [Moles/Vol] 22.7 mmol/L 21.0-32.0 [facility] Chloride assayOrdered By: Layo Mckenna on 11-29-2024 Chloride [Moles/Vol] 101 mmol/L 98-108 [facility] Eosinophil percentageOrdered By: Anupamrochellejenni Mckenna on 11-29-2024 Eosinophils/100 WBC (Bld) 1.3 % 0-5 [facility] Erythrocyte distribution wid th ratioOrdered By: Irvin Mckenna on 11-29-2024 Erythrocyte distribution width (RBC) [Ratio] 16.8 % High 11.6-14.6 [facility] Erythrocyte distribution wid th standard deviationOrdered By: Irvin Mckenna on 11-29-2024 Erythrocyte distribution width (RBC) [Ratio] 71.7 fl High 35.1-43.9 [facility] Folate [Moles/volume] in Ser um or PlasmaOrdered By: Irvin Mckenna on 11-29-2024 Folate [Moles/Vol] 28.00 ng/mL 4.60-34.80 [facility] Glomerular filtration rate ( GFR) estimation/1.73 sq m using serum, plasma, or whole bOrdered By: Irvin Mckenna on 11-29-2024 GFR/1.73 sq M.predicted among non-blacks MDRD (S/P/Bld) [Vol rate/Area] 69 mL/min/{1.73_m2} >60 [facility] Hematocrit Auto (Bld) [Volum e fraction]Ordered By: Irvin Mckenna on 11-29-2024 Hematocrit (Bld) [Volume fraction] 30.7 % Low 37-47 [facility] Hemoglobin measurementOrdere d By: Irvin Mckenna on 11-29-2024 Hemoglobin (Bld) [Mass/Vol] 10.3 g/dL Low 12.0-15.0 [facility] Immature granulocytes/100 WB C Auto (Bld)Ordered By: Irvin Mckenna 11-29-2024 Immature granulocytes/100 WBC (Bld) 0.500 % 0.0-0.9 [facility] MCV (mean corpuscular volume ) determinationOrdered By: Irvin Mckenna on 11-29-2024 MCV (RBC) [Entitic vol] 114.6 fL High 81-99 [facility] Mean corpuscular hemoglobin (MCH) determinationOrdered By: beatris Mckenna on 11-29-2024 MCH (RBC) [Entitic mass] 38.4 pg High 27.0-32.0 [facility] Monocyte percentageOrdered B y: Irvin Mckenna on 11-29-2024 Monocytes/100 WBC (Bld) 8.6 % 0-10 [facility] Neutrophil percentageOrdered By: Irvin Mckenna on 11-29-2024 Neutrophils/100 WBC (Bld) 67.7 % 47-70 [facility] No Panel InformationOrdered By: Irvin Mckenna on 11-29-2024 1+ [facility] 22 U/L <32 [facility] Platelet countOrdered By: Layo Mckenna on 11-29-2024 Platelets (Bld) [#/Vol] 249 10*3/uL 150-450 [facility] Potassium measurement (mass/ volume)Ordered By: Irvin Mckenna on 11-29-2024 Potassium (Unsp spec) [Mass/Vol] 3.3 mmol/L 3.3-5.1 [facility] RBC Auto (Bld) [#/Vol]Ordere d By: Irvin Mckenna on 11-29-2024 RBC (Bld) [#/Vol] 2.68 10*6/uL Low 4.2-5.4 [facility] Serum creatinine measurement (mass/volume)Ordered By: Irvin Mckenna on 11-29-2024 Creatinine [Mass/Vol] 0.85 mg/dL 0.70-1.20 [facility] Serum globulin measurementOr dered By: Irvin Mckenna on 11-29-2024 Globulin (S) [Mass/Vol] 2.9 g/dL 2.2-4.2 [facility] Serum glucose measurement (m ass/volume)Ordered By: Irvin Mckenna on 11-29-2024 Glucose [Mass/Vol] 79 mg/dL 70-99 [facility] Serum or plasma alanine bey otransferase (ALT) measurementOrdered By: Irvin Mckenna 11-29-2024 ALT [Catalytic activity/Vol] 7 U/L <35 [facility] Serum or plasma albumin niels urement (mass/volume)Ordered By: Irvin Mckenna on 11-29-2024 Albumin [Mass/Vol] 3.7 g/dL 3.4-4.8 [facility] Serum or plasma albumin/glob ulin mass ratioOrdered By: Irvin Mckenna on 11-29-2024 Albumin/Globulin [Mass ratio] 1.3 {ratio} 0.9-2.4 [facility] Serum or plasma alkaline victor hugo sphatase measurementOrdered By: Irvin Derrickmag on 11-29-2024 ALP [Catalytic activity/Vol] 75 U/L 35-104 [facility] Serum or plasma calcium niels urement (mass/volume)Ordered By: Irvin Derrickjerilynelier on 11-29-2024 Calcium [Mass/Vol] 9.3 mg/dL 7.6-11.0 [facility] Serum or plasma urea nitroge n measurement (mass/volume)Ordered By: Irvin Derrickmag on 11-29-2024 Urea nitrogen [Mass/Vol] 9 mg/dL 4-19 [facility] Sodium levelOrdered By: Anupam hearn Derrickmag on 11-29-2024 Sodium [Moles/Vol] 137 mmol/L 133-145 [facility] TSH DL <= 0.005 mIU/L QnOrde red By: Irvin Derrickmag on 11-29-2024 TSH Qn 1.490 uIU/mL 0.300-4.20 0 [facility] Total proteinOrdered By: Luca Mckenna on 11-29-2024 Protein [Mass/Vol] 6.6 g/dL 5.9-8.4 [facility] White blood cell (WBC) count Ordered By: Layofroycandicejenni Mckenna on 11-29-2024 WBC (Bld) [#/Vol] 3.8 10*3/uL Low 4.4-11.0 [facility] Absolute lymphocyte countOrd ered By: Dago Emery on 11-24-2024 Lymphocytes Auto (Unsp spec) [#/Vol] 1.12 10*3/uL 0.83-4.51 [facility] Absolute neutrophil countOrd ered By: Dago Emery on 11-24-2024 Neutrophils (Bld) [#/Vol] 2.7 10*3/uL 2.0-7.7 [facility] Anion gap in Serum or Plasma Ordered By: Dago Emery on 11-24-2024 Anion gap [Moles/Vol] 12 mmol/L 5-15 [facility] Automated lymphocyte count a s percentage of total leukocytesOrdered By: Dago Emery on 11-24-2024 Lymphocytes/100 WBC Auto (Unsp spec) 27.0 % [facility] BUN/creatinine ratioOrdered By: Dago Emery on 11-24-2024 Urea nitrogen/Creatinine [Mass ratio] 11.3 mg/mg - [facility] Basic Metabolic Profile (BMP )on 11-24-2024 BUN/CRE 11.3 RATIO Normal - [facility] Comment on above: Performed By: #### L 500.2500, L100.0100 ####[facility] [address] [place], [address] Calcium [Mass/Vol] 9.0 mg/dL Normal 7.6-11.0 [facility] Comment on above: Performed By: #### L 500.2500, L100.0100 ####[facility] [address] [place], [address] Chloride [Moles/Vol] 100 mmol/L Normal 98-108 [facility] Comment on above: Performed By: #### L 500.2500, L100.0100 ####[facility] [address] [place], [address] CO2 [Moles/Vol] 24.0 mmol/L Normal 21.0-32.0 [facility] Comment on above: Performed By: #### L 500.2500, L100.0100 ####[facility] [address] [place], [address] Creatinine [Mass/Vol] 1.02 mg/dL Normal 0.70-1.20 [facility] Comment on above: Performed By: #### L 500.2500, L100.0100 ####[facility] [address] [place], [address] ECRCL 46.75 ml/min Low 50-250 [facility] Comment on above: Performed By: #### L 500.2500, L100.0100 ####[facility] [address] [place], [address] GAP 12 Normal 5-15 [facility] Comment on above: Performed By: #### L 500.2500, L100.0100 ####[facility] [address] [place], [address] GFR/1.73 sq M.predicted among non-blacks MDRD (S/P/Bld) [Vol rate/Area] 55 mL/min/{1.73_m2} Low >60 [facility] Comment on above: Result Comment: mL/m in/1.73m2 CKD-EPI Creatinine Equation (2020) Performed By: #### L 500.2500, L100.0100 ####[facility] [address] [place], [address] Glucose [Mass/Vol] 119 mg/dL High 70-99 [facility] Comment on above: Performed By: #### L 500.2500, L100.0100 ####[facility] [address] [place], [address] Potassium [Moles/Vol] 3.7 mmol/L Normal 3.3-5.1 [facility] Comment on above: Performed By: #### L 500.2500, L100.0100 ####[facility] [address] [place], [address] Sodium [Moles/Vol] 135 mmol/L Normal 133-145 [facility] Comment on above: Performed By: #### L 500.2500, L100.0100 ####[facility] [address] [place], [address] Urea nitrogen [Mass/Vol] 12 mg/dL Normal 4-19 [facility] Comment on above: Performed By: #### L 500.2500, L100.0100 ####[facility] [address] [place], [place], [address] Basophil percentageOrdered B y: Dago Emery on 11-24-2024 Basophils/100 WBC (Bld) 0.5 % 0-1 [facility] Blood manual differential co mment interpretation (narrative result)Ordered By: Dago Emery on 11-24-2024 Manual differential comment Jack (Bld) [Interp] SCANNED [facility] CBC W/Diff, Automatedon Anisocytosis Ql (Bld) 2+ Normal [facility] Comment on above: Performed By: #### L 500.2500, L100.0100 ####[facility] [address] [place], [place], [address] SMEAR COMMENT SCANNED Normal [facility] Comment on above: Performed By: #### L 500.2500, L100.0100 ####[facility] [address] [place], [place], [address] Carbon dioxide, total [Moles /volume] in Central venous bloodOrdered By: Dago Rupert on 11-24-2024 CO2 [Moles/Vol] 24.0 mmol/L 21.0-32.0 [facility] Chloride assayOrdered By: Jorge Emery on 11-24-2024 Chloride [Moles/Vol] 100 mmol/L 98-108 [facility] Eosinophil percentageOrdered By: Dago Emery on 11-24-2024 Eosinophils/100 WBC (Bld) 2.2 % 0-5 [facility] Erythrocyte distribution wid th ratioOrdered By: Dago Emery on 11-24-2024 Erythrocyte distribution width (RBC) [Ratio] 16.9 % High 11.6-14.6 [facility] Erythrocyte distribution wid th standard deviationOrdered By: Dago Rupert on 11-24-2024 Erythrocyte distribution width (RBC) [Ratio] 70.3 fl High 35.1-43.9 [facility] Glomerular filtration rate ( GFR) estimation/1.73 sq m using serum, plasma, or whole bOrdered By: Dago Emery on 11-24-2024 GFR/1.73 sq M.predicted among non-blacks MDRD (S/P/Bld) [Vol rate/Area] 55 mL/min/{1.73_m2} Low >60 [facility] Comment on above: mL/min/1.73m2 CKD-EP I Creatinine Equation (2020) Hematocrit Auto (Bld) [Volum e fraction]Ordered By: Dago Emery on 11-24-2024 Hematocrit (Bld) [Volume fraction] 30.7 % Low 37-47 [facility] Hemoglobin measurementOrdere d By: Dago Emery on 11-24-2024 Hemoglobin (Bld) [Mass/Vol] 10.3 g/dL Low 12.0-15.0 [facility] Immature granulocytes/100 WB C Auto (Bld)Ordered By: Dago Emery 11-24-2024 Immature granulocytes/100 WBC (Bld) 0.500 % 0.0-0.9 [facility] Comment on above: IG% - Immature Granu locytes (promyelocytes, myelocytes and metamyelocytes) > 1% indicates that a LEFT SHIFT is Present. Laboratory - Hematology and Cell countsOrdered By: Dago Emery on 11-24-2024 Anisocytosis Ql (Bld) 2+ [facility] MCV (mean corpuscular volume ) determinationOrdered By: Dago Emery 11-24-2024 MCV (RBC) [Entitic vol] 115.0 fL High 81-99 [facility] Mean corpuscular hemoglobin (MCH) determinationOrdered By: Dago Emery 11-24-2024 MCH (RBC) [Entitic mass] 38.6 pg High 27.0-32.0 [facility] Mean corpuscular hemoglobin concentration (MCHC) determinationOrdered By: Dago Emery 11-24-2024 MCHC (RBC) [Mass/Vol] 33.6 g/dL 32-36 [facility] Mean platelet volume determi nationOrdered By: Dago Emery 11-24-2024 Platelet mean volume (Bld) [Entitic vol] 10.0 fL 6.2-12.0 [facility] Monocyte percentageOrdered B y: Dago Emery on 11-24-2024 Monocytes/100 WBC (Bld) 5.3 % 0-10 [facility] Neutrophil percentageOrdered By: Dago Emery 11-24-2024 Neutrophils/100 WBC (Bld) 64.5 % 47-70 [facility] No Panel InformationOrdered By: Dago Emery on 11-24-2024 2+ [facility] Nucleated red blood cell per centageOrdered By: Dago Emery on 11-24-2024 Nucleated RBC/100 WBC (Bld) [Ratio] 0 % 0-5 [facility] Platelet countOrdered By: Jorge Emery on 11-24-2024 Platelets (Bld) [#/Vol] 239 10*3/uL 150-450 [facility] Potassium measurement (mass/ volume)Ordered By: Dago Emery on 11-24-2024 Potassium (Unsp spec) [Mass/Vol] 3.7 mmol/L 3.3-5.1 [facility] RBC Auto (Bld) [#/Vol]Ordere d By: Dago Emery on 11-24-2024 RBC (Bld) [#/Vol] 2.67 10*6/uL Low 4.2-5.4 [facility] Serum creatinine measurement (mass/volume)Ordered By: Dago Emery on 11-24-2024 Creatinine [Mass/Vol] 1.02 mg/dL 0.70-1.20 [facility] Serum glucose measurement (m ass/volume)Ordered By: Dago Emery on 11-24-2024 Glucose [Mass/Vol] 119 mg/dL High 70-99 [facility] Serum or plasma calcium niels urement (mass/volume)Ordered By: Dago Emery on 11-24-2024 Calcium [Mass/Vol] 9.0 mg/dL 7.6-11.0 [facility] Serum or plasma urea nitroge n measurement (mass/volume)Ordered By: Dago Emery on 11-24-2024 Urea nitrogen [Mass/Vol] 12 mg/dL 4-19 [facility] Sodium levelOrdered By: Dago Emery on 11-24-2024 Sodium [Moles/Vol] 135 mmol/L 133-145 [facility] White blood cell (WBC) count Ordered By: Dago Emery on 11-24-2024 WBC (Bld) [#/Vol] 4.2 10*3/uL Low 4.4-11.0 [facility] Basic Metabolic Profile (BMP )on 11-17-2024 BUN/CRE 14.3 RATIO Normal 10-20 [facility] Comment on above: Performed By: #### L 100.0100, L500.2500 ####[facility] [address] [place], [address] Calcium [Mass/Vol] 8.9 mg/dL Normal 7.6-11.0 [facility] Comment on above: Performed By: #### L 100.0100, L500.2500 ####[facility] [address] [place], [address] Chloride [Moles/Vol] 101 mmol/L Normal 98-108 [facility] Comment on above: Performed By: #### L 100.0100, L500.2500 ####[facility] [address] [place], [address] CO2 [Moles/Vol] 23.8 mmol/L Normal 21.0-32.0 [facility] Comment on above: Performed By: #### L 100.0100, L500.2500 ####[facility] [address] [place], [address] Creatinine [Mass/Vol] 1.02 mg/dL Normal 0.70-1.20 [facility] Comment on above: Performed By: #### L 100.0100, L500.2500 ####[facility] [address] [place], [address] ECRCL 47.80 ml/min Low 50-250 [facility] Comment on above: Performed By: #### L 100.0100, L500.2500 ####[facility] [address] [place], [address] GAP 11 Normal 5-15 [facility] Comment on above: Performed By: #### L 100.0100, L500.2500 ####[facility] [address] [place], [address] GFR/1.73 sq M.predicted among non-blacks MDRD (S/P/Bld) [Vol rate/Area] 55 mL/min/{1.73_m2} Low >60 [facility] Comment on above: Result Comment: mL/m in/1.73m2 CKD-EPI Creatinine Equation (2020) Performed By: #### L 100.0100, L500.2500 ####[facility] [address] [place], [address] Glucose [Mass/Vol] 82 mg/dL Normal 70-99 [facility] Comment on above: Performed By: #### L 100.0100, L500.2500 ####[facility] [address] [place], [address] Potassium [Moles/Vol] 3.8 mmol/L Normal 3.3-5.1 [facility] Comment on above: Performed By: #### L 100.0100, L500.2500 ####[facility] [address] [place], [address] Sodium [Moles/Vol] 136 mmol/L Normal 133-145 [facility] Comment on above: Performed By: #### L 100.0100, L500.2500 ####[facility] [address] [place], [address] Urea nitrogen [Mass/Vol] 15 mg/dL Normal 4-19 [facility] Comment on above: Performed By: #### L 100.0100, L500.2500 ####[facility] [address] [place], [address] CBC W/Diff, Automatedon 10-21 Anisocytosis Ql (Bld) 1+ Normal [facility] Comment on above: Performed By: #### L 100.0100, L500.2500 ####[facility] [address] [place], [address] HH, Hemoglobin AND Hematocri ton 11-15-2024 Hematocrit (Bld) [Volume fraction] 26.1 % Low [address] [place] [address] Comment on above: Performed By: #### L 100.0600 ####[facility] [address] [place], [address] Hemoglobin (Bld) [Mass/Vol] 8.8 g/dL Low 12.0-15.0 [facility] Comment on above: Performed By: #### L 100.0600 ####[facility] [address] [place], [address] COVID 19 AG RAPID (RN COLLEC T)on 11-13-2024 SARS-CoV-2 (COVID-19) RNA JANY+probe Ql (Unsp spec) Normal [facility] Comment on above: Performed By: #### M 100.505 ####[facility] [address] [place], [address] COVID-19 virus antigen assay Ordered By: Dago Emeyr on 11-13-2024 SARS-CoV-2 (COVID-19) Ag IA.rapid Ql (Resp) [facility] HH, Hemoglobin AND Hematocri ton 11-13-2024 Hematocrit (Bld) [Volume fraction] 25.3 % Low [address] [place] [address] Comment on above: Performed By: #### L 100.0600 ####[facility] [address] [place], [address] Hemoglobin (Bld) [Mass/Vol] 8.6 g/dL Low 12.0-15.0 [facility] Comment on above: Performed By: #### L 100.0600 ####[facility] [address] [place], [address] COVID 19 AG RAPID (RN COLLEC T)on 11-11-2024 SARS-CoV-2 (COVID-19) RNA JANY+probe Ql (Unsp spec) Normal [facility] Comment on above: Performed By: #### M 100.505 ####[facility] [address] [place], [address] COVID-19 virus antigen assay Ordered By: Dago Emery on 11-11-2024 SARS-CoV-2 (COVID-19) Ag rapid Ql (Resp) [facility] Basic Metabolic Profile (BMP )on 11-10-2024 BUN/CRE 13.9 RATIO Normal 10-20 [facility] Comment on above: Performed By: #### L 500.2500, L100.0100 ####[facility] [address] [place], [address] Calcium [Mass/Vol] 8.5 mg/dL Normal 7.6-11.0 [facility] Comment on above: Performed By: #### L 500.2500, L100.0100 ####[facility] [address] [place], [address] Chloride [Moles/Vol] 102 mmol/L Normal 98-108 [facility] Comment on above: Performed By: #### L 500.2500, L100.0100 ####[facility] [address] [place], [address] CO2 [Moles/Vol] 25.0 mmol/L Normal 21.0-32.0 [facility] Comment on above: Performed By: #### L 500.2500, L100.0100 ####[facility] [address] [place], [address] Creatinine [Mass/Vol] 0.90 mg/dL Normal 0.70-1.20 [facility] Comment on above: Performed By: #### L 500.2500, L100.0100 ####[facility] [address] [place], [address] ECRCL 54.17 ml/min Normal 50-250 [facility] Comment on above: Performed By: #### L 500.2500, L100.0100 ####[facility] [address] [place], [address] GAP 11 Normal 5-15 [facility] Comment on above: Performed By: #### L 500.2500, L100.0100 ####[facility] [address] [place], [address] GFR/1.73 sq M.predicted among non-blacks MDRD (S/P/Bld) [Vol rate/Area] 64 mL/min/{1.73_m2} Normal >60 [facility] Comment on above: Result Comment: mL/m in/1.73m2 CKD-EPI Creatinine Equation (2020) Performed By: #### L 500.2500, L100.0100 ####[facility] [address] [place], [address] Glucose [Mass/Vol] 82 mg/dL Normal 70-99 [facility] Comment on above: Performed By: #### L 500.2500, L100.0100 ####[facility] [address] [place], [address] Potassium [Moles/Vol] 3.7 mmol/L Normal 3.3-5.1 [facility] Comment on above: Performed By: #### L 500.2500, L100.0100 ####[facility] [address] [place], [address] Sodium [Moles/Vol] 138 mmol/L Normal 133-145 [facility] Comment on above: Performed By: #### L 500.2500, L100.0100 ####[facility] [address] [place], [address] Urea nitrogen [Mass/Vol] 13 mg/dL Normal 4-19 [facility] Comment on above: Performed By: #### L 500.2500, L100.0100 ####[facility] [address] [place], [address] Blood polychromasia detectio n by light microscopyOrdered By: Dago Emery on 11-10-2024 Polychromasia LM Ql (Bld) 1+ [facility] CBC W/Diff, Automatedon 10-21 POLYCHROMASIA 1+ Normal [facility] Comment on above: Performed By: #### L 500.2500, L100.0100 ####[facility] [address] [place], [address] Anisocytosis Ql (Bld) 2+ Normal [facility] Comment on above: Performed By: #### L 500.2500, L100.0100 ####[facility] [address] [place], [place], [id number] PLT EST ADEQUATE Normal ADEQ [facility] Comment on above: Performed By: #### L 500.2500, L100.0100 ####[facility] [address] [place], [place], [id number] Platelet estimateOrdered By: Dago Emery on 11-10-2024 Platelets LM Ql (Bld) ADEQUATE ADEQ [facility] COVID 19 AG RAPID (DOUGLAS Devine)on 11-09-2024 SARS-CoV-2 (COVID-19) RNA JANY+probe Ql (Unsp spec) Normal [facility] Comment on above: Performed By: #### M 100.505 ####[facility] [address] [place], [place], [id number] COVID-19 virus antigen assay Ordered By: Dago Emery on 11-09-2024 SARS-CoV-2 (COVID-19) Ag IA.rapid Ql (Resp) [facility] Ankle min 3 Viewson 11-04-19 25 Ankle min 3 Views Normal [facility] Basic Metabolic Profile (BMP )on 11-03-2024 BUN/CRE 15.7 RATIO Normal 10-20 [facility] Comment on above: Performed By: #### L 500.2500, L100.0100 ####[facility] [address] [place], [address] Calcium [Mass/Vol] 8.8 mg/dL Normal 7.6-11.0 [facility] Comment on above: Performed By: #### L 500.2500, L100.0100 ####[facility] [address] [place], [address] Chloride [Moles/Vol] 101 mmol/L Normal 98-108 [facility] Comment on above: Performed By: #### L 500.2500, L100.0100 ####[facility] [address] [place], [address] CO2 [Moles/Vol] 22.1 mmol/L Normal 21.0-32.0 [facility] Comment on above: Performed By: #### L 500.2500, L100.0100 ####[facility] [address] [place], [address] Creatinine [Mass/Vol] 1.16 mg/dL Normal 0.70-1.20 [facility] Comment on above: Performed By: #### L 500.2500, L100.0100 ####[facility] [address] [place], [address] ECRCL 42.03 ml/min Low 50-250 [facility] Comment on above: Performed By: #### L 500.2500, L100.0100 ####[facility] [address] [place], [address] GAP 11 Normal 5-15 [facility] Comment on above: Performed By: #### L 500.2500, L100.0100 ####[facility] [address] [place], [address] GFR/1.73 sq M.predicted among non-blacks MDRD (S/P/Bld) [Vol rate/Area] 47 mL/min/{1.73_m2} Low >60 [facility] Comment on above: Result Comment: mL/m in/1.73m2 CKD-EPI Creatinine Equation (2020) Performed By: #### L 500.2500, L100.0100 ####[facility] [address] [place], [address] Glucose [Mass/Vol] 88 mg/dL Normal 70-99 [facility] Comment on above: Performed By: #### L 500.2500, L100.0100 ####[facility] [address] [place], [address] Potassium [Moles/Vol] 4.0 mmol/L Normal 3.3-5.1 [facility] Comment on above: Performed By: #### L 500.2500, L100.0100 ####[facility] [address] [place], [address] Sodium [Moles/Vol] 134 mmol/L Normal 133-145 [facility] Comment on above: Performed By: #### L 500.2500, L100.0100 ####[facility] [address] [place], [address] Urea nitrogen [Mass/Vol] 18 mg/dL Normal 4-19 [facility] Comment on above: Performed By: #### L 500.2500, L100.0100 ####[facility] [address] [place], [address] CBC W/Diff, Automatedon 10-20 Anisocytosis Ql (Bld) 2+ Normal [facility] Comment on above: Performed By: #### L 500.2500, L100.0100 ####[facility] [address] [place], [address] MACROCYTOSIS 2+ Normal [facility] Comment on above: Performed By: #### L 500.2500, L100.0100 ####[facility] [address] [place], [address] POLYCHROMASIA RARE Normal [facility] Comment on above: Performed By: #### L 500.2500, L100.0100 ####[facility] [address] [place], [address] RED CELL MORPH N CHROM Normal NORM C C [facility] Comment on above: Performed By: #### L 500.2500, L100.0100 ####[facility] [address] [place], [address] SMEAR COMMENT SCANNED Normal [facility] Comment on above: Performed By: #### L 500.2500, L100.0100 ####[facility] [address] [place], [address] Erythrocyte morphology asses smentOrdered By: Dago Emery on 11-03-2024 RBC morphology finding Nom (Bld) N CHROM NORMAL NORM C&C [facility] Macrocytes detectionOrdered By: Dago Emery on 11-03-2024 Macrocytes Ql (Bld) 2+ [facility] EGD Reporton 11-01-2024 EGD Report Normal [facility] Immunohistochemical Stainson 11-01-2024 Immunohistochemical Stains Normal [facility] Comment on above: Performed By: #### P IMHI ####[facility] [address] [place], [address] MR/OP.PROVATon 11-01-2024 MR/OP.PROVAT Normal [facility] MR/POSTOP.ANEon 11-01-2024 MR/POSTOP.ANE Normal [facility] MR/LMPEIYVE7nx 11-01-2024 MR/POSTOPAN2 Normal [facility] Ankle min 3 Viewson 11-01-19 25 Ankle min 3 Views [facility] HH, Hemoglobin AND Hematocri ton 10-31-2024 Hematocrit (Bld) [Volume fraction] 24.8 % Low 37-47 [facility] Comment on above: Performed By: #### L 100.0600 ####[facility] [address] [place], [place], [id number]) Hemoglobin (Bld) [Mass/Vol] 8.4 g/dL Low 12.0-15.0 [facility] Comment on above: Performed By: #### L 100.0600 ####[facility] [address] [place], [address] Hematocrit Auto (Bld) [Volum e fraction]Ordered By: Dago Emery on 10-31-2024 Hematocrit (Bld) [Volume fraction] 24.8 % Low 37-47 [facility] Hemoglobin measurementOrdere d By: Dago Emery on 10-31-2024 Hemoglobin (Bld) [Mass/Vol] 8.4 g/dL Low 12.0-15.0 [facility] Knee 1 or 2 Viewson 11-01-19 25 Knee 1 or 2 Views Normal [facility] MR/CON.PCM.GIon 10-31-2024 MR/CON.PCM.GI Normal [facility] Stool Occult Blood iFOBon STOB Positive Normal [facility] Comment on above: Performed By: #### M 100.7900 ####[facility] [address] [place], [address] Stool gastrointestinal hemog lobin detection by immunologic methodOrdered By: Dago Emery on 10-31-2024 Lower GI hemoglobin IA Ql (Stl) Positive Abnormal [facility] HH, Hemoglobin AND Hematocri ton 10-30-2024 Hematocrit (Bld) [Volume fraction] 24.1 % Low 37-[address] [place] [address] Comment on above: Performed By: #### L 100.0600 ####[facility] [address] [place], [address]( Hemoglobin (Bld) [Mass/Vol] 7.9 g/dL Low 12.0-15.0 [facility] Comment on above: Performed By: #### L 100.0600 ####[facility] [address] [place], [address](252) HH, Hemoglobin AND Hematocri ton 10-28-2024 Hematocrit (Bld) [Volume fraction] 25.0 % Low 37-47 [facility] Comment on above: Performed By: #### L 100.0600 ####[facility] [address] [place], [place], [id number] Hemoglobin (Bld) [Mass/Vol] 8.3 g/dL Low 12.0-15.0 [facility] Comment on above: Performed By: #### L 100.0600 ####[facility] [address] [place], [address] Absolute lymphocyte countOrd ered By: Dago Emery on 10-27-2024 Lymphocytes Auto (Unsp spec) [#/Vol] 1.30 10*3/uL 0.83-4.51 [facility] Absolute neutrophil countOrd ered By: Dago Emery on 10-27-2024 Neutrophils (Bld) [#/Vol] 2.7 10*3/uL 2.0-7.7 [facility] Anion gap in Serum or Plasma Ordered By: Dago Emery on 10-27-2024 Anion gap [Moles/Vol] 10 mmol/L 5-15 [facility] Automated lymphocyte count a s percentage of total leukocytesOrdered By: Dago Emery on 10-27-2024 Lymphocytes/100 WBC Auto (Unsp spec) 27.7 % 19-41 [facility] BUN/creatinine ratioOrdered By: Dago Emery on 10-27-2024 Urea nitrogen/Creatinine [Mass ratio] 24.5 mg/mg High 10-20 [facility] Basic Metabolic Profile (BMP )on 10-27-2024 BUN/CRE 24.5 RATIO High 10-20 [facility] Comment on above: Performed By: #### L 500.2500, L100.0100 ####[facility] [address], [address] Calcium [Mass/Vol] 8.8 mg/dL Normal 7.6-11.0 [facility] Comment on above: Performed By: #### L 500.2500, L100.0100 ####[facility] [address] [place], [address] Chloride [Moles/Vol] 100 mmol/L Normal 98-108 [facility] Comment on above: Performed By: #### L 500.2500, L100.0100 ####[facility] [address] [place], [address] CO2 [Moles/Vol] 22.3 mmol/L Normal 21.0-32.0 [facility] Comment on above: Performed By: #### L 500.2500, L100.0100 ####[facility] [address] [place], [address] Creatinine [Mass/Vol] 1.16 mg/dL Normal 0.70-1.20 [facility] Comment on above: Performed By: #### L 500.2500, L100.0100 ####[facility] [address] [place], [address] ECRCL 42.03 ml/min Low 50-250 [facility] Comment on above: Performed By: #### L 500.2500, L100.0100 ####[facility] [address] [place], [address] GAP 10 Normal 5-15 [facility] Comment on above: Performed By: #### L 500.2500, L100.0100 ####[facility] [address] [place], [address] GFR/1.73 sq M.predicted among non-blacks MDRD (S/P/Bld) [Vol rate/Area] 47 mL/min/{1.73_m2} Low >60 [facility] Comment on above: Result Comment: mL/m in/1.73m2 CKD-EPI Creatinine Equation (2020) Performed By: #### L 500.2500, L100.0100 ####[facility] [address] [place], [address] Glucose [Mass/Vol] 85 mg/dL Normal 70-99 [facility] Comment on above: Performed By: #### L 500.2500, L100.0100 ####[facility] [address] [place], [address] Potassium [Moles/Vol] 4.5 mmol/L Normal 3.3-5.1 [facility] Comment on above: Performed By: #### L 500.2500, L100.0100 ####[facility] [address] [place], [address] Sodium [Moles/Vol] 133 mmol/L Normal 133-145 [facility] Comment on above: Performed By: #### L 500.2500, L100.0100 ####[facility] [address] [place], [address] Urea nitrogen [Mass/Vol] 28 mg/dL High 4-19 [facility] Comment on above: Performed By: #### L 500.2500, L100.0100 ####[facility] [address] [place], [address] Basophil percentageOrdered B y: Dago Emery on 10-27-2024 Basophils/100 WBC (Bld) 0.4 % 0-1 [facility] Blood polychromasia detectio n by light microscopyOrdered By: Dago Emery on 10-27-2024 Polychromasia LM Ql (Bld) RARE [facility] CBC W/Diff, Automatedon 08-0 Anisocytosis Ql (Bld) 2+ Normal [facility] Comment on above: Performed By: #### L 500.2500, L100.0100 ####[facility] [address] [place], [address] POLYCHROMASIA RARE Normal [facility] Comment on above: Performed By: #### L 500.2500, L100.0100 ####[facility] [address] [place], [address] RED CELL MORPH NORM C+C Normal NORM C C [facility] Comment on above: Performed By: #### L 500.2500, L100.0100 ####[facility] [address] [place], [address] Carbon dioxide, total [Moles /volume] in Central venous bloodOrdered By: Dago Emery on 10-27-2024 CO2 [Moles/Vol] 22.3 mmol/L 21.0-32.0 [facility] Chloride assayOrdered By: Jorge Emery on 10-27-2024 Chloride [Moles/Vol] 100 mmol/L 98-108 [facility] Eosinophil percentageOrdered By: Dago Emery on 10-27-2024 Eosinophils/100 WBC (Bld) 3.0 % 0-5 [facility] Erythrocyte distribution wid th ratioOrdered By: Dago Emery on 10-27-2024 Erythrocyte distribution width (RBC) [Ratio] 15.9 % High 11.6-14.6 [facility] Erythrocyte distribution wid th standard deviationOrdered By: Dago Emery on 10-27-2024 Erythrocyte distribution width (RBC) [Ratio] 65.3 fl High 35.1-43.9 [facility] Erythrocyte morphology asses smentOrdered By: Dago Emery on 10-27-2024 RBC morphology finding Nom (Bld) NORM C+C NORMAL NORM C&C [facility] Glomerular filtration rate ( GFR) estimation/1.73 sq m using serum, plasma, or whole bOrdered By: Dago Emery on 10-27-2024 GFR/1.73 sq M.predicted among non-blacks MDRD (S/P/Bld) [Vol rate/Area] 47 mL/min/{1.73_m2} Low >60 [facility] Comment on above: mL/min/1.73m2 CKD-EP I Creatinine Equation (2020) Immature granulocytes/100 WB C Auto (Bld)Ordered By: Dago Emery on 10-27-2024 Immature granulocytes/100 WBC (Bld) 1.500 % High 0.0-0.9 [facility] Comment on above: IG% - Immature Granu locytes (promyelocytes, myelocytes and metamyelocytes) > 1% indicates that a LEFT SHIFT is Present. Laboratory - Hematology and Cell countsOrdered By: Dago Emery on 10-27-2024 Anisocytosis Ql (Bld) 2+ [facility] MCV (mean corpuscular volume ) determinationOrdered By: Dago Emery on 10-27-2024 MCV (RBC) [Entitic vol] 113.4 fL High 81-99 [facility] Mean corpuscular hemoglobin (MCH) determinationOrdered By: Dago Emery 10-27-2024 MCH (RBC) [Entitic mass] 37.0 pg High 27.0-32.0 [facility] Mean corpuscular hemoglobin concentration (MCHC) determinationOrdered By: Dago Emery 10-27-2024 MCHC (RBC) [Mass/Vol] 32.7 g/dL 32-36 [facility] Mean platelet volume determi nationOrdered By: Dago Emery on 10-27-2024 Platelet mean volume (Bld) [Entitic vol] 9.9 fL 6.2-12.0 [facility] Monocyte percentageOrdered B y: Dago Emery on 10-27-2024 Monocytes/100 WBC (Bld) 10.6 % High 0-10 [facility] Neutrophil percentageOrdered By: Dago Emery 10-27-2024 Neutrophils/100 WBC (Bld) 56.8 % 47-70 [facility] Nucleated red blood cell per centageOrdered By: Dago Emery 10-27-2024 Nucleated RBC/100 WBC (Bld) [Ratio] 0 % 0-5 [facility] Platelet countOrdered By: Jorge Emery on 10-27-2024 Platelets (Bld) [#/Vol] 230 10*3/uL 150-450 [facility] Potassium measurement (mass/ volume)Ordered By: Dago Emery on 10-27-2024 Potassium (Unsp spec) [Mass/Vol] 4.5 mmol/L 3.3-5.1 [facility] RBC Auto (Bld) [#/Vol]Ordere d By: Dago Emery on 10-27-2024 RBC (Bld) [#/Vol] 2.16 10*6/uL Low 4.2-5.4 [facility] Serum creatinine measurement (mass/volume)Ordered By: Dago Emery on 10-27-2024 Creatinine [Mass/Vol] 1.16 mg/dL 0.70-1.20 [facility] Serum glucose measurement (m ass/volume)Ordered By: Dago Emery on 10-27-2024 Glucose [Mass/Vol] 85 mg/dL 70-99 [facility] Serum or plasma calcium niels urement (mass/volume)Ordered By: Dago Emery on 10-27-2024 Calcium [Mass/Vol] 8.8 mg/dL 7.6-11.0 [facility] Serum or plasma urea nitroge n measurement (mass/volume)Ordered By: Dago Emery on 10-27-2024 Urea nitrogen [Mass/Vol] 28 mg/dL High 4-19 [facility] Sodium levelOrdered By: Dago Emery on 10-27-2024 Sodium [Moles/Vol] 133 mmol/L 133-145 [facility] White blood cell (WBC) count Ordered By: Dago Emery on 10-27-2024 WBC (Bld) [#/Vol] 4.7 10*3/uL 4.4-11.0 [facility] Basic Metabolic Profile (BMP )on 10-22-2024 BUN/CRE 26.3 RATIO High 10-20 [facility] Comment on above: Performed By: #### L 500.2500, L100.0100 ####[facility] [address] [place], [address] Calcium [Mass/Vol] 8.9 mg/dL Normal 7.6-11.0 [facility] Comment on above: Performed By: #### L 500.2500, L100.0100 ####[facility] [address] [place], [address] Chloride [Moles/Vol] 103 mmol/L Normal 98-108 [facility] Comment on above: Performed By: #### L 500.2500, L100.0100 ####[facility] [address] [place], [address] CO2 [Moles/Vol] 22.0 mmol/L Normal 21.0-32.0 [facility] Comment on above: Performed By: #### L 500.2500, L100.0100 ####[facility] [address] [place], [address] Creatinine [Mass/Vol] 0.84 mg/dL Normal 0.70-1.20 [facility] Comment on above: Performed By: #### L 500.2500, L100.0100 ####[facility] [address] [place], [address] ECRCL 57.97 ml/min Normal 50-250 [facility] Comment on above: Performed By: #### L 500.2500, L100.0100 ####[facility] [address] [place], [address] GAP 10 Normal 5-15 [facility] Comment on above: Performed By: #### L 500.2500, L100.0100 ####[facility] [address] [place], [address] GFR/1.73 sq M.predicted among non-blacks MDRD (S/P/Bld) [Vol rate/Area] 70 mL/min/{1.73_m2} Normal >60 [facility] Comment on above: Result Comment: mL/m in/1.73m2 CKD-EPI Creatinine Equation (2020) Performed By: #### L 500.2500, L100.0100 ####[facility] [address] [place], [address] Glucose [Mass/Vol] 94 mg/dL Normal 70-99 [facility] Comment on above: Performed By: #### L 500.2500, L100.0100 ####[facility] [address] [place], [address] Potassium [Moles/Vol] 4.0 mmol/L Normal 3.3-5.1 [facility] Comment on above: Performed By: #### L 500.2500, L100.0100 ####[facility] [address] [place], [address] Sodium [Moles/Vol] 135 mmol/L Normal 133-145 [facility] Comment on above: Performed By: #### L 500.2500, L100.0100 ####[facility] [address] [place], [address] Urea nitrogen [Mass/Vol] 22 mg/dL High 4-19 [facility] Comment on above: Performed By: #### L 500.2500, L100.0100 ####[facility] [address] [place], [address] CBC W/Diff, Automatedon 08-0 3-2025 Absolute Lymph 1.22 X10 3/uL Normal 0.83-4.51 [facility] Comment on above: Performed By: #### L 500.2500, L100.0100 ####[facility] [address] [place], [address] Absolute Neut 3.2 X10 3/uL Normal 2.0-7.7 [facility] Comment on above: Performed By: #### L 500.2500, L100.0100 ####[facility] [address] [place], [address] Basophils/100 WBC (Bld) 0.6 % Normal 0-1 [facility] Comment on above: Performed By: #### L 500.2500, L100.0100 ####[facility] [address] [place], [address] Eosinophils/100 WBC (Bld) 1.6 % Normal 0-5 [facility] Comment on above: Performed By: #### L 500.2500, L100.0100 ####[facility] [address] [place], [address] Erythrocyte distribution width (RBC) [Ratio] 15.7 % High 11.6-14.6 [facility] Comment on above: Performed By: #### L 500.2500, L100.0100 ####[facility] [address] [place], [address] Hematocrit (Bld) [Volume fraction] 26.6 % Low 37-47 [facility] Comment on above: Performed By: #### L 500.2500, L100.0100 ####[facility] [address] [place], [address] Hemoglobin (Bld) [Mass/Vol] 8.8 g/dL Low 12.0-15.0 [facility] Comment on above: Performed By: #### L 500.2500, L100.0100 ####[facility] [address] [place], [address] IG% 0.600 Normal 0.0-0.9 [facility] Comment on above: Result Comment: IG% - Immature Granulocytes (promyelocytes, myelocytes andmetamyelocytes) > 1% indicates that a LEFT SHIFT is Present. Performed By: #### L 500.2500, L100.0100 ####[facility] [address] [place], [address] Lymphocytes/100 WBC (Bld) 24.1 % Normal 19-41 [facility] Comment on above: Performed By: #### L 500.2500, L100.0100 ####[facility] [address] [place], [address] MCH (RBC) [Entitic mass] 37.0 pg High 27.0-32.0 [facility] Comment on above: Performed By: #### L 500.2500, L100.0100 ####[facility] [address] [place], [address] MCHC (RBC) [Mass/Vol] 33.1 g/dL Normal 32-36 [facility] Comment on above: Performed By: #### L 500.2500, L100.0100 ####[facility] [address] [place], [address] MCV (RBC) [Entitic vol] 111.8 fL High 81-99 [facility] Comment on above: Performed By: #### L 500.2500, L100.0100 ####[facility] [address] [place], [address] Monocytes/100 WBC (Bld) 10.1 % High 0-10 [facility] Comment on above: Performed By: #### L 500.2500, L100.0100 ####[facility] [address] [place], [address] Neutrophils/100 WBC (Bld) 63.0 % Normal 47-70 [facility] Comment on above: Performed By: #### L 500.2500, L100.0100 ####[facility] [address] [place], [address] Nucleated RBC (Bld) [#/Vol] 0 10*3/uL Normal 0-5 [facility] Comment on above: Performed By: #### L 500.2500, L100.0100 ####[facility] [address] [place], [address] Platelet mean volume (Bld) [Entitic vol] 10.4 fL Normal 6.2-12.0 [facility] Comment on above: Performed By: #### L 500.2500, L100.0100 ####[facility] [address] [place], [address] Platelets (Bld) [#/Vol] 248 10*3/uL Normal 150-450 [facility] Comment on above: Performed By: #### L 500.2500, L100.0100 ####[facility] [address] [place], [address] RBC (Bld) [#/Vol] 2.38 10*6/uL Low 4.2-5.4 [facility] Comment on above: Performed By: #### L 500.2500, L100.0100 ####[facility] [address] [place], [address] RDW SD 64.2 fl High 35.1-43.9 [facility] Comment on above: Performed By: #### L 500.2500, L100.0100 ####[facility] [address] [place], [address] WBC (Bld) [#/Vol] 5.1 10*3/uL Normal 4.4-11.0 [facility] Comment on above: Performed By: #### L 500.2500, L100.0100 ####[facility] [address] [place], [address] Absolute lymphocyte countOrd ered By: Nela Wallace on 10-21-2024 Lymphocytes Auto (Unsp spec) [#/Vol] 1.47 10*3/uL 0.83-4.51 [facility] Absolute neutrophil countOrd ered By: Nela Wallace on 10-21-2024 Neutrophils (Bld) [#/Vol] 3.0 10*3/uL 2.0-7.7 [facility] Anion gap in Serum or Plasma Ordered By: Nela Wallace on 10-21-2024 Anion gap [Moles/Vol] 10 mmol/L 5-15 [facility] Automated lymphocyte count a s percentage of total leukocytesOrdered By: Nela Wallace on 10-21-2024 Lymphocytes/100 WBC Auto (Unsp spec) 27.2 % -41 [facility] BUN/creatinine ratioOrdered By: Nela Wallace on 10-21-2024 Urea nitrogen/Creatinine [Mass ratio] 23.7 mg/mg High 10- [facility] Basic Metabolic Profile (BMP )on 10-21-2024 BUN/CRE 23.7 RATIO High 10- [facility] Comment on above: Performed By: #### L 500.2500 ####[facility] [address] [place], [address] Calcium [Mass/Vol] 8.5 mg/dL Normal 7.6-11.0 [facility] Comment on above: Performed By: #### L 500.2500 ####[facility] [address] [place], [address] Chloride [Moles/Vol] 103 mmol/L Normal 98-108 [facility] Comment on above: Performed By: #### L 500.2500 ####[facility] [address] [place], [address] CO2 [Moles/Vol] 21.9 mmol/L Normal 21.0-32.0 [facility] Comment on above: Performed By: #### L 500.2500 ####[facility] [address] [place], [address] Creatinine [Mass/Vol] 1.04 mg/dL Normal 0.70-1.20 [facility] Comment on above: Performed By: #### L 500.2500 ####[facility] [address] [place], [address] ECRCL 45.68 ml/min Low 50-250 [facility] Comment on above: Performed By: #### L 500.2500 ####[facility] [address] [place], [address] GAP 10 Normal 5-15 [facility] Comment on above: Performed By: #### L 500.2500 ####[facility] [address] [place], [address] GFR/1.73 sq M.predicted among non-blacks MDRD (S/P/Bld) [Vol rate/Area] 54 mL/min/{1.73_m2} Low >60 [facility] Comment on above: Result Comment: mL/m in/1.73m2 CKD-EPI Creatinine Equation (2020) Performed By: #### L 500.2500 ####[facility] [address] [place], [address] Glucose [Mass/Vol] 86 mg/dL Normal 70-99 [facility] Comment on above: Performed By: #### L 500.2500 ####[facility] [address] [place], [address] Potassium [Moles/Vol] 3.8 mmol/L Normal 3.3-5.1 [facility] Comment on above: Performed By: #### L 500.2500 ####[facility] [address] [place], [address] Sodium [Moles/Vol] 135 mmol/L Normal 133-145 [facility] Comment on above: Performed By: #### L 500.2500 ####[facility] [address] [place], [address] Urea nitrogen [Mass/Vol] 25 mg/dL High 4-19 [facility] Comment on above: Performed By: #### L 500.2500 ####[facility] [address] [place], [address] Basophil percentageOrdered B y: Nela Wallace on 10-21-2024 Basophils/100 WBC (Bld) 0.4 % 0-1 [facility] CBC W/Diff, Automatedon 08-0 Absolute Lymph 1.47 X10 3/uL Normal 0.83-4.51 [facility] Comment on above: Performed By: #### L 100.0100 ####[facility] [address] [place], [address] Absolute Neut 3.0 X10 3/uL Normal 2.0-7.7 [facility] Comment on above: Performed By: #### L 100.0100 ####[facility] [address] [place], [address] Basophils/100 WBC (Bld) 0.4 % Normal 0-1 [facility] Comment on above: Performed By: #### L 100.0100 ####[facility] [address], [address] Eosinophils/100 WBC (Bld) 1.9 % Normal 0-5 [facility] Comment on above: Performed By: #### L 100.0100 ####[facility] [address] [place], [address] Erythrocyte distribution width (RBC) [Ratio] 15.8 % High 11.6-14.6 [facility] Comment on above: Performed By: #### L 100.0100 ####[facility] [address] [place], [address] Hematocrit (Bld) [Volume fraction] 25.5 % Low 37-47 [facility] Comment on above: Performed By: #### L 100.0100 ####[facility] [address] [place], [address] Hemoglobin (Bld) [Mass/Vol] 8.7 g/dL Low 12.0-15.0 [facility] Comment on above: Performed By: #### L 100.0100 ####[facility] [address] [place], [address] IG% 0.600 Normal 0.0-0.9 [facility] Comment on above: Result Comment: IG% - Immature Granulocytes (promyelocytes, myelocytes andmetamyelocytes) > 1% indicates that a LEFT SHIFT is Present. Performed By: #### L 100.0100 ####[facility] [address], [address] Lymphocytes/100 WBC (Bld) 27.2 % Normal 19-41 [facility] Comment on above: Performed By: #### L 100.0100 ####[facility] [address] [place], [address] MCH (RBC) [Entitic mass] 37.8 pg High 27.0-32.0 [facility] Comment on above: Performed By: #### L 100.0100 ####[facility] [address] [place], [address] MCHC (RBC) [Mass/Vol] 34.1 g/dL Normal 32-36 [facility] Comment on above: Performed By: #### L 100.0100 ####[facility] [address] [place], [address] MCV (RBC) [Entitic vol] 110.9 fL High 81-99 [facility] Comment on above: Performed By: #### L 100.0100 ####[facility] [address] [place], [address] Monocytes/100 WBC (Bld) 15.2 % High 0-10 [facility] Comment on above: Performed By: #### L 100.0100 ####[facility] [address] [place], [address] Neutrophils/100 WBC (Bld) 54.7 % Normal 47-70 [facility] Comment on above: Performed By: #### L 100.0100 ####[facility] [address] [place], [address] Nucleated RBC (Bld) [#/Vol] 0 10*3/uL Normal 0-5 [facility] Comment on above: Performed By: #### L 100.0100 ####[facility] [address] [place], [address] Platelet mean volume (Bld) [Entitic vol] 10.8 fL Normal 6.2-12.0 [facility] Comment on above: Performed By: #### L 100.0100 ####[facility] [address] [place], [address] Platelets (Bld) [#/Vol] 224 10*3/uL Normal 150-450 [facility] Comment on above: Performed By: #### L 100.0100 ####[facility] [address] [place], [address] RBC (Bld) [#/Vol] 2.30 10*6/uL Low 4.2-5.4 [facility] Comment on above: Performed By: #### L 100.0100 ####[facility] [address] [place], [address] RDW SD 64.2 fl High 35.1-43.9 [facility] Comment on above: Performed By: #### L 100.0100 ####[facility] [address] [place], [address] WBC (Bld) [#/Vol] 5.4 10*3/uL Normal 4.4-11.0 [facility] Comment on above: Performed By: #### L 100.0100 ####[facility] [address] [place], [address] Carbon dioxide, total [Moles /volume] in Central venous bloodOrdered By: Nela Wallace on 10-21-2024 CO2 [Moles/Vol] 21.9 mmol/L 21.0-32.0 [facility] Chloride assayOrdered By: Bharathi Wallace on 10-21-2024 Chloride [Moles/Vol] 103 mmol/L 98-108 [facility] Eosinophil percentageOrdered By: Nela Wallace on 10-21-2024 Eosinophils/100 WBC (Bld) 1.9 % 0-5 [facility] Erythrocyte distribution wid th ratioOrdered By: Nela Wallace on 10-21-2024 Erythrocyte distribution width (RBC) [Ratio] 15.8 % High 11.6-14.6 [facility] Erythrocyte distribution wid th standard deviationOrdered By: Nela Wallace on 10-21-2024 Erythrocyte distribution width (RBC) [Ratio] 64.2 fl High 35.1-43.9 [facility] Glomerular filtration rate ( GFR) estimation/1.73 sq m using serum, plasma, or whole bOrdered By: Nela Wallace on 10-21-2024 GFR/1.73 sq M.predicted among non-blacks MDRD (S/P/Bld) [Vol rate/Area] 54 mL/min/{1.73_m2} Low >60 [facility] Comment on above: mL/min/1.73m2 CKD-EP I Creatinine Equation (2020) Hematocrit Auto (Bld) [Volum e fraction]Ordered By: Nela Wallace on 10-21-2024 Hematocrit (Bld) [Volume fraction] 25.5 % Low 37-47 [facility] Hemoglobin measurementOrdere d By: Nela Wallace on 10-21-2024 Hemoglobin (Bld) [Mass/Vol] 8.7 g/dL Low 12.0-15.0 [facility] Immature granulocytes/100 WB C Auto (Bld)Ordered By: Nela Wallace on 10-21-2024 Immature granulocytes/100 WBC (Bld) 0.600 % 0.0-0.9 [facility] Comment on above: IG% - Immature Granu locytes (promyelocytes, myelocytes and metamyelocytes) > 1% indicates that a LEFT SHIFT is Present. MCV (mean corpuscular volume ) determinationOrdered By: Nela Wallace on 10-21-2024 MCV (RBC) [Entitic vol] 110.9 fL High 81-99 [facility] Mean corpuscular hemoglobin (MCH) determinationOrdered By: Nela Wallace on 10-21-2024 MCH (RBC) [Entitic mass] 37.8 pg High 27.0-32.0 [facility] Mean corpuscular hemoglobin concentration (MCHC) determinationOrdered By: Nela Wallace on 10-21-2024 MCHC (RBC) [Mass/Vol] 34.1 g/dL 32-36 [facility] Mean platelet volume determi nationOrdered By: Nela Wallace on 10-21-2024 Platelet mean volume (Bld) [Entitic vol] 10.8 fL 6.2-12.0 [facility] Monocyte percentageOrdered B y: Nela Wallace on 10-21-2024 Monocytes/100 WBC (Bld) 15.2 % High 0-10 [facility] Neutrophil percentageOrdered By: Nela Wallace on 10-21-2024 Neutrophils/100 WBC (Bld) 54.7 % 47-70 [facility] Nucleated red blood cell per centageOrdered By: Nela Wallace on 10-21-2024 Nucleated RBC/100 WBC (Bld) [Ratio] 0 % 0-5 [facility] Platelet countOrdered By: Bharathi Wallace on 10-21-2024 Platelets (Bld) [#/Vol] 224 10*3/uL 150-450 [facility] Potassium measurement (mass/ volume)Ordered By: Nela Wallace on 10-21-2024 Potassium (Unsp spec) [Mass/Vol] 3.8 mmol/L 3.3-5.1 [facility] RBC Auto (Bld) [#/Vol]Ordere d By: Nela Wallace on 10-21-2024 RBC (Bld) [#/Vol] 2.30 10*6/uL Low 4.2-5.4 [facility] Serum creatinine measurement (mass/volume)Ordered By: Nela Wallace on 10-21-2024 Creatinine [Mass/Vol] 1.04 mg/dL 0.70-1.20 [facility] Serum glucose measurement (m ass/volume)Ordered By: Nela Wallace on 10-21-2024 Glucose [Mass/Vol] 86 mg/dL 70-99 [facility] Serum or plasma calcium niels urement (mass/volume)Ordered By: Nela Wallace on 10-21-2024 Calcium [Mass/Vol] 8.5 mg/dL 7.6-11.0 [facility] Serum or plasma urea nitroge n measurement (mass/volume)Ordered By: Nela Wallace on 10-21-2024 Urea nitrogen [Mass/Vol] 25 mg/dL High 4-19 [facility] Sodium levelOrdered By: Tracie Wallace on 10-21-2024 Sodium [Moles/Vol] 135 mmol/L 133-145 [facility] White blood cell (WBC) count Ordered By: Nela Wallace on 10-21-2024 WBC (Bld) [#/Vol] 5.4 10*3/uL 4.4-11.0 [facility] Basic Metabolic Profile (BMP )on 10-20-2024 BUN/CRE 17.8 RATIO Normal 10-20 [facility] Comment on above: Performed By: #### L 500.2500 ####[facility] [address] [place], [address] Calcium [Mass/Vol] 8.3 mg/dL Normal 7.6-11.0 [facility] Comment on above: Performed By: #### L 500.2500 ####[facility] [address] [place], [address] Chloride [Moles/Vol] 105 mmol/L Normal 98-108 [facility] Comment on above: Performed By: #### L 500.2500 ####[facility] [address] [place], [address] CO2 [Moles/Vol] 21.4 mmol/L Normal 21.0-32.0 [facility] Comment on above: Performed By: #### L 500.2500 ####[facility] [address] [place], [address] Creatinine [Mass/Vol] 0.86 mg/dL Normal 0.70-1.20 [facility] Comment on above: Performed By: #### L 500.2500 ####[facility] [address] [place], [address] ECRCL 55.24 ml/min Normal 50-250 [facility] Comment on above: Performed By: #### L 500.2500 ####[facility] [address] [place], [address] GAP 10 Normal 5-15 [facility] Comment on above: Performed By: #### L 500.2500 ####[facility] [address] [place], [address] GFR/1.73 sq M.predicted among non-blacks MDRD (S/P/Bld) [Vol rate/Area] 68 mL/min/{1.73_m2} Normal >60 [facility] Comment on above: Result Comment: mL/m in/1.73m2 CKD-EPI Creatinine Equation (2020) Performed By: #### L 500.2500 ####[facility] [address] [place], [address] Glucose [Mass/Vol] 82 mg/dL Normal 70-99 [facility] Comment on above: Performed By: #### L 500.2500 ####[facility] [address] [place], [address] Potassium [Moles/Vol] 3.8 mmol/L Normal 3.3-5.1 [facility] Comment on above: Performed By: #### L 500.2500 ####[facility] [address] [place], [address] Sodium [Moles/Vol] 136 mmol/L Normal 133-145 [facility] Comment on above: Performed By: #### L 500.2500 ####[facility] [address] [place], [address] Urea nitrogen [Mass/Vol] 15 mg/dL Normal 4-19 [facility] Comment on above: Performed By: #### L 500.2500 ####[facility] [address] [place], [address] CBC-Complete Blood Cnt No Di ffon 10-20-2024 Erythrocyte distribution width (RBC) [Ratio] 15.5 % High 11.6-14.6 [facility] Comment on above: Performed By: #### L 100.0500 ####[facility] [facility] [address] [place], [address] Hematocrit (Bld) [Volume fraction] 27.0 % Low 37-47 [facility] Comment on above: Performed By: #### L 100.0500 ####[facility] [address] [place], [address] Hemoglobin (Bld) [Mass/Vol] 9.1 g/dL Low 12.0-15.0 [facility] Comment on above: Performed By: #### L 100.0500 ####[facility] [address] [place], [address] MCH (RBC) [Entitic mass] 37.6 pg High 27.0-32.0 [facility] Comment on above: Performed By: #### L 100.0500 ####[facility] [address] [place], [address] MCHC (RBC) [Mass/Vol] 33.7 g/dL Normal 32-36 [facility] Comment on above: Performed By: #### L 100.0500 ####[facility] [address] [place], [address] MCV (RBC) [Entitic vol] 111.6 fL High 81-99 [facility] Comment on above: Performed By: #### L 100.0500 ####[facility] [address] [place], [address] Platelet mean volume (Bld) [Entitic vol] 10.8 fL Normal 6.2-12.0 [facility] Comment on above: Performed By: #### L 100.0500 ####[facility] [address] [place], [address] Platelets (Bld) [#/Vol] 210 10*3/uL Normal 150-450 [facility] Comment on above: Performed By: #### L 100.0500 ####[facility] [address] [place], [address] RBC (Bld) [#/Vol] 2.42 10*6/uL Low 4.2-5.4 [facility] Comment on above: Performed By: #### L 100.0500 ####[facility] [address] [place], [address] RDW SD 64.2 fl High 35.1-43.9 [facility] Comment on above: Performed By: #### L 100.0500 ####[facility] [address] [place], [address] WBC (Bld) [#/Vol] 7.0 10*3/uL Normal 4.4-11.0 [facility] Comment on above: Performed By: #### L 100.0500 ####[facility] [address] [place], [address] Basic Metabolic Profile (BMP )on 10-19-2024 BUN/CRE 16.2 RATIO Normal 10-20 [facility] Comment on above: Performed By: #### L 500.2500, L100.0100 ####[facility] [address] [place], [address] Calcium [Mass/Vol] 8.9 mg/dL Normal 7.6-11.0 [facility] Comment on above: Performed By: #### L 500.2500, L100.0100 ####[facility] [address] [place], [address] Chloride [Moles/Vol] 98 mmol/L Normal 98-108 [facility] Comment on above: Performed By: #### L 500.2500, L100.0100 ####[facility] [address] [place], [address] CO2 [Moles/Vol] 21.9 mmol/L Normal 21.0-32.0 [facility] Comment on above: Performed By: #### L 500.2500, L100.0100 ####[facility] [address] [place], [address] Creatinine [Mass/Vol] 1.02 mg/dL Normal 0.70-1.20 [facility] Comment on above: Performed By: #### L 500.2500, L100.0100 ####[facility] [address] [place], [address] ECRCL 46.57 ml/min Low 50-250 [facility] Comment on above: Performed By: #### L 500.2500, L100.0100 ####[facility] [address] [place], [address] GAP 11 Normal 5-15 [facility] Comment on above: Performed By: #### L 500.2500, L100.0100 ####[facility] [address] [place], [address] GFR/1.73 sq M.predicted among non-blacks MDRD (S/P/Bld) [Vol rate/Area] 55 mL/min/{1.73_m2} Low >60 [facility] Comment on above: Result Comment: mL/m in/1.73m2 CKD-EPI Creatinine Equation (2020) Performed By: #### L 500.2500, L100.0100 ####[facility] [address] [place], [address] Glucose [Mass/Vol] 94 mg/dL Normal 70-99 [facility] Comment on above: Performed By: #### L 500.2500, L100.0100 ####[facility] [address] [place], [address] Potassium [Moles/Vol] 4.1 mmol/L Normal 3.3-5.1 [facility] Comment on above: Performed By: #### L 500.2500, L100.0100 ####[facility] [address] [place], [address] Sodium [Moles/Vol] 131 mmol/L Low 133-145 [facility] Comment on above: Performed By: #### L 500.2500, L100.0100 ####[facility] [address] [place], [address] Urea nitrogen [Mass/Vol] 17 mg/dL Normal 4-19 [facility] Comment on above: Performed By: #### L 500.2500, L100.0100 ####[facility] [address] [place], [address] Bedside Glucoseon 10-19-2024 FINGERSTICK GLU 120 mg/dL High 74-106 [facility] Comment on above: Result Comment: TRACEY SALDAÑA OF PATIENT CARE PER NURSING PROTOCOL Performed By: #### L 501.080 ####[facility] [address] [place], [address] CBC W/Diff, Automatedon 07- Absolute Lymph 1.13 X10 3/uL Normal 0.83-4.51 [facility] Comment on above: Performed By: #### L 100.0100 ####[facility] [address] [place], [address] Absolute Neut 5.2 X10 3/uL Normal 2.0-7.7 [facility] Comment on above: Performed By: #### L 100.0100 ####[facility] [address] [place], [address] Basophils/100 WBC (Bld) 0.3 % Normal 0-1 [facility] Comment on above: Performed By: #### L 100.0100 ####[facility] [address] [place], [address] Eosinophils/100 WBC (Bld) 0.9 % Normal 0-5 [facility] Comment on above: Performed By: #### L 100.0100 ####[facility] [address] [place], [address] Erythrocyte distribution width (RBC) [Ratio] 15.5 % High 11.6-14.6 [facility] Comment on above: Performed By: #### L 100.0100 ####[facility] [address] [place], [address] Hematocrit (Bld) [Volume fraction] 27.6 % Low 37-47 [facility] Comment on above: Performed By: #### L 100.0100 ####[facility] [address] [place], [address] Hemoglobin (Bld) [Mass/Vol] 9.4 g/dL Low 12.0-15.0 [facility] Comment on above: Performed By: #### L 100.0100 ####[facility] [address] [place], [address] IG% 0.600 Normal 0.0-0.9 [facility] Comment on above: Result Comment: IG% - Immature Granulocytes (promyelocytes, myelocytes andmetamyelocytes) > 1% indicates that a LEFT SHIFT is Present. Performed By: #### L 100.0100 ####[facility] [address] [place], [address] Lymphocytes/100 WBC (Bld) 14.4 % Low 19-41 [facility] Comment on above: Performed By: #### L 100.0100 ####[facility] [address] [place], [address] MCH (RBC) [Entitic mass] 37.8 pg High 27.0-32.0 [facility] Comment on above: Performed By: #### L 100.0100 ####[facility] [address] [place], [address] MCHC (RBC) [Mass/Vol] 34.1 g/dL Normal 32-36 [facility] Comment on above: Performed By: #### L 100.0100 ####[facility] [address] [place], [address] MCV (RBC) [Entitic vol] 110.8 fL High 81-99 [facility] Comment on above: Performed By: #### L 100.0100 ####[facility] [address] [place], [address] Monocytes/100 WBC (Bld) 17.1 % High 0-10 [facility] Comment on above: Performed By: #### L 100.0100 ####[facility] [address] [place], [address] Neutrophils/100 WBC (Bld) 66.7 % Normal 47-70 [facility] Comment on above: Performed By: #### L 100.0100 ####[facility] [address] [place], [address] Nucleated RBC (Bld) [#/Vol] 0 10*3/uL Normal 0-5 [facility] Comment on above: Performed By: #### L 100.0100 ####[facility] [address] [place], [address] Platelet mean volume (Bld) [Entitic vol] 11.0 fL Normal 6.2-12.0 [facility] Comment on above: Performed By: #### L 100.0100 ####[facility] [address] [place], [address] Platelets (Bld) [#/Vol] 181 10*3/uL Normal 150-450 [facility] Comment on above: Performed By: #### L 100.0100 ####[facility] [address] [place], [address] RBC (Bld) [#/Vol] 2.49 10*6/uL Low 4.2-5.4 [facility] Comment on above: Performed By: #### L 100.0100 ####[facility] [address] [place], [address] RDW SD 62.7 fl High 35.1-43.9 [facility] Comment on above: Performed By: #### L 100.0100 ####[facility] [address], [address] WBC (Bld) [#/Vol] 7.8 10*3/uL Normal 4.4-11.0 [facility] Comment on above: Performed By: #### L 100.0100 ####[facility] [address] [place], [address] Absolute Neut Normal 2.0-7.7 [facility] Comment on above: Result Comment: Canc elled via OM: Duplicate Order Performed By: #### L 500.2500, L100.0100 ####[facility] [address] [place], [address] HCT Normal 37-47 [facility] Comment on above: Result Comment: Canc elled via OM: Duplicate Order Performed By: #### L 500.2500, L100.0100 ####[facility] [address] [place], [address] HGB Normal 12.0-15.0 [facility] Comment on above: Result Comment: Canc elled via OM: Duplicate Order Performed By: #### L 500.2500, L100.0100 ####[facility] [address] [place], [address] MCH Normal 27.0-32.0 [facility] Comment on above: Result Comment: Canc elled via OM: Duplicate Order Performed By: #### L 500.2500, L100.0100 ####[facility] [address] [place], [address] MCHC Normal 32-36 [facility] Comment on above: Result Comment: Canc elled via OM: Duplicate Order Performed By: #### L 500.2500, L100.0100 ####[facility] [address] [place], [address] MCV Normal 81-99 [facility] Comment on above: Result Comment: Canc elled via OM: Duplicate Order Performed By: #### L 500.2500, L100.0100 ####[facility] [address] [place], [address] NEUT% Normal 47-70 [facility] Comment on above: Result Comment: Canc elled via OM: Duplicate Order Performed By: #### L 500.2500, L100.0100 ####[facility] [address] [place], [address] PLT Normal 150-450 [facility] Comment on above: Result Comment: Canc elled via OM: Duplicate Order Performed By: #### L 500.2500, L100.0100 ####[facility] [address] [place], [address] RBC Normal 4.2-5.4 [facility] Comment on above: Result Comment: Canc elled via OM: Duplicate Order Performed By: #### L 500.2500, L100.0100 ####[facility] [address] [place], [address] RDW CV Normal 11.6-14.6 [facility] Comment on above: Result Comment: Canc elled via OM: Duplicate Order Performed By: #### L 500.2500, L100.0100 ####[facility] [address] [place], [address] RDW SD Normal 35.1-43.9 [facility] Comment on above: Result Comment: Canc elled via OM: Duplicate Order Performed By: #### L 500.2500, L100.0100 ####[facility] [address] [place], [address] WBC Normal 4.4-11.0 [facility] Comment on above: Result Comment: Canerasto elled via OM: Duplicate Order Performed By: #### L 500.2500, L100.0100 ####[facility] [address] [place], [address] [facility] deOrdered By: Geo Rodriguez on 10-19-2024 Glucose [Mass/Vol] 120 mg/dL High 74-106 [facility] Comment on above: MANAGEMENT OF PATIEN T CARE PER NURSING PROTOCOL Basic Metabolic Profile (BMP )on 10-18-2024 BUN/CRE 18.0 RATIO Normal 10-20 [facility] Comment on above: Performed By: #### L 500.2500, L100.0100 ####[facility] [address], [address] Calcium [Mass/Vol] 8.5 mg/dL Normal 7.6-11.0 [facility] Comment on above: Performed By: #### L 500.2500, L100.0100 ####[facility] [address] [place], [address] Chloride [Moles/Vol] 99 mmol/L Normal 98-108 [facility] Comment on above: Performed By: #### L 500.2500, L100.0100 ####[facility] [address] [place], [address] CO2 [Moles/Vol] 22.0 mmol/L Normal 21.0-32.0 [facility] Comment on above: Performed By: #### L 500.2500, L100.0100 ####[facility] [address] [place], [address] Creatinine [Mass/Vol] 0.92 mg/dL Normal 0.70-1.20 [facility] Comment on above: Performed By: #### L 500.2500, L100.0100 ####[facility] [address] [place], [address] ECRCL 51.63 ml/min Normal 50-250 [facility] Comment on above: Performed By: #### L 500.2500, L100.0100 ####[facility] [address], [address] GAP 11 Normal 5-15 [facility] Comment on above: Performed By: #### L 500.2500, L100.0100 ####[facility] [address] [place], [address] GFR/1.73 sq M.predicted among non-blacks MDRD (S/P/Bld) [Vol rate/Area] 63 mL/min/{1.73_m2} Normal >60 [facility] Comment on above: Result Comment: mL/m in/1.73m2 CKD-EPI Creatinine Equation (2020) Performed By: #### L 500.2500, L100.0100 ####[facility] [address] [place], [address] Glucose [Mass/Vol] 96 mg/dL Normal 70-99 [facility] Comment on above: Performed By: #### L 500.2500, L100.0100 ####[facility] [address] [place], [address] Potassium [Moles/Vol] 3.7 mmol/L Normal 3.3-5.1 [facility] Comment on above: Performed By: #### L 500.2500, L100.0100 ####[facility] [address] [place], [address] Sodium [Moles/Vol] 133 mmol/L Normal 133-145 [facility] Comment on above: Performed By: #### L 500.2500, L100.0100 ####[facility] [address] [place], [address] Urea nitrogen [Mass/Vol] 17 mg/dL Normal 4-19 [facility] Comment on above: Performed By: #### L 500.2500, L100.0100 ####[facility] [address] [place], [address] CBC W/Diff, Automatedon 07-3 0-2025 Absolute Lymph 0.76 X10 3/uL Low 0.83-4.51 [facility] Comment on above: Performed By: #### L 500.2500, L100.0100 ####[facility] [address] [place], [address] Absolute Neut 5.0 X10 3/uL Normal 2.0-7.7 [facility] Comment on above: Performed By: #### L 500.2500, L100.0100 ####[facility] [address] [place], [address] Basophils/100 WBC (Bld) 0.1 % Normal 0-1 [facility] Comment on above: Performed By: #### L 500.2500, L100.0100 ####[facility] [address] [place], [address] Eosinophils/100 WBC (Bld) 0.4 % Normal 0-5 [facility] Comment on above: Performed By: #### L 500.2500, L100.0100 ####[facility] [address] [place], [address] Erythrocyte distribution width (RBC) [Ratio] 15.6 % High 11.6-14.6 [facility] Comment on above: Performed By: #### L 500.2500, L100.0100 ####[facility] [address] [place], [address] Hematocrit (Bld) [Volume fraction] 28.2 % Low 37-47 [facility] Comment on above: Performed By: #### L 500.2500, L100.0100 ####[facility] [address] [place], [address] Hemoglobin (Bld) [Mass/Vol] 9.4 g/dL Low 12.0-15.0 [facility] Comment on above: Performed By: #### L 500.2500, L100.0100 ####[facility] [address] [place], [address] IG% 0.300 Normal 0.0-0.9 [facility] Comment on above: Result Comment: IG% - Immature Granulocytes (promyelocytes, myelocytes andmetamyelocytes) > 1% indicates that a LEFT SHIFT is Present. Performed By: #### L 500.2500, L100.0100 ####[facility] [address] [place], [address] Lymphocytes/100 WBC (Bld) 11.1 % Low 19-41 [facility] Comment on above: Performed By: #### L 500.2500, L100.0100 ####[facility] [address] [place], [address] MCH (RBC) [Entitic mass] 36.9 pg High 27.0-32.0 [facility] Comment on above: Performed By: #### L 500.2500, L100.0100 ####[facility] [address] [place], [address] MCHC (RBC) [Mass/Vol] 33.3 g/dL Normal 32-36 [facility] Comment on above: Performed By: #### L 500.2500, L100.0100 ####[facility] [address] [place], [address] MCV (RBC) [Entitic vol] 110.6 fL High 81-99 [facility] Comment on above: Performed By: #### L 500.2500, L100.0100 ####[facility] [address] [place], [address] Monocytes/100 WBC (Bld) 14.6 % High 0-10 [facility] Comment on above: Performed By: #### L 500.2500, L100.0100 ####[facility] [address] [place], [address] Neutrophils/100 WBC (Bld) 73.5 % High 47-70 [facility] Comment on above: Performed By: #### L 500.2500, L100.0100 ####[facility] [address] [place], [address] Nucleated RBC (Bld) [#/Vol] 0 10*3/uL Normal 0-5 [facility] Comment on above: Performed By: #### L 500.2500, L100.0100 ####[facility] [address] [place], [address] Platelet mean volume (Bld) [Entitic vol] 10.4 fL Normal 6.2-12.0 [facility] Comment on above: Performed By: #### L 500.2500, L100.0100 ####[facility] [address] [place], [address] Platelets (Bld) [#/Vol] 176 10*3/uL Normal 150-450 [facility] Comment on above: Performed By: #### L 500.2500, L100.0100 ####[facility] [address] [place], [address] RBC (Bld) [#/Vol] 2.55 10*6/uL Low 4.2-5.4 [facility] Comment on above: Performed By: #### L 500.2500, L100.0100 ####[facility] [address] [place], [address] RDW SD 62.7 fl High 35.1-43.9 [facility] Comment on above: Performed By: #### L 500.2500, L100.0100 ####[facility] [address] [place], [address] WBC (Bld) [#/Vol] 6.8 10*3/uL Normal 4.4-11.0 [facility] Comment on above: Performed By: #### L 500.2500, L100.0100 ####[facility] [address] [place], [address] HH, Hemoglobin AND Hematocri ton 10-18-2024 Hematocrit (Bld) [Volume fraction] 28.2 % Low 37-47 [facility] Comment on above: Performed By: #### L 100.0600 ####[facility] [address] [place], [address] Hemoglobin (Bld) [Mass/Vol] 9.5 g/dL Low 12.0-15.0 [facility] Comment on above: Performed By: #### L 100.0600 ####[facility] [address] [place], [address] Ankle min 3 Viewson 10-18-19 25 Ankle min 3 Views Normal [facility] Basic Metabolic Profile (BMP )on 10-17-2024 BUN/CRE 20.7 RATIO High 10-20 [facility] Comment on above: Performed By: #### L 100.0500, L500.2500 ####[facility] [address] [place], [address] Calcium [Mass/Vol] 8.6 mg/dL Normal 7.6-11.0 [facility] Comment on above: Performed By: #### L 100.0500, L500.2500 ####[facility] [address] [place], [address] Chloride [Moles/Vol] 103 mmol/L Normal 98-108 [facility] Comment on above: Performed By: #### L 100.0500, L500.2500 ####[facility] [address] [place], [address] CO2 [Moles/Vol] 20.7 mmol/L Low 21.0-32.0 [facility] Comment on above: Performed By: #### L 100.0500, L500.2500 ####[facility] [address] [place], [address] Creatinine [Mass/Vol] 0.68 mg/dL Low 0.70-1.20 [facility] Comment on above: Performed By: #### L 100.0500, L500.2500 ####[facility] [address] [place], [address] ECRCL 59.38 ml/min Normal 50-250 [facility] Comment on above: Performed By: #### L 100.0500, L500.2500 ####[facility] [address] [place], [address] GAP 12 Normal 5-15 [facility] Comment on above: Performed By: #### L 100.0500, L500.2500 ####[facility] [address] [place], [address] GFR/1.73 sq M.predicted among non-blacks MDRD (S/P/Bld) [Vol rate/Area] 87 mL/min/{1.73_m2} Normal >60 [facility] Comment on above: Result Comment: mL/m in/1.73m2 CKD-EPI Creatinine Equation (2020) Performed By: #### L 100.0500, L500.2500 ####[facility] [address] [place], [address] Glucose [Mass/Vol] 135 mg/dL High 70-99 [facility] Comment on above: Performed By: #### L 100.0500, L500.2500 ####[facility] [address] [place], [address] Potassium [Moles/Vol] 3.9 mmol/L Normal 3.3-5.1 [facility] Comment on above: Performed By: #### L 100.0500, L500.2500 ####[facility] [address] [place], [address] Sodium [Moles/Vol] 136 mmol/L Normal 133-145 [facility] Comment on above: Performed By: #### L 100.0500, L500.2500 ####[facility] [address] [place], [address] Urea nitrogen [Mass/Vol] 14 mg/dL Normal 4-19 [facility] Comment on above: Performed By: #### L 100.0500, L500.2500 ####[facility] [address] [place], [address] CBC-Complete Blood Cnt No Di ffon 10-17-2024 Erythrocyte distribution width (RBC) [Ratio] 15.9 % High 11.6-14.6 [facility] Comment on above: Performed By: #### L 100.0500, L500.2500 ####[facility] [address] [place], [address] Hematocrit (Bld) [Volume fraction] 30.5 % Low 37-47 [facility] Comment on above: Performed By: #### L 100.0500, L500.2500 ####[facility] [address] [place], [address] Hemoglobin (Bld) [Mass/Vol] 10.2 g/dL Low 12.0-15.0 [facility] Comment on above: Performed By: #### L 100.0500, L500.2500 ####[facility] [address] [place], [address] MCH (RBC) [Entitic mass] 37.2 pg High 27.0-32.0 [facility] Comment on above: Performed By: #### L 100.0500, L500.2500 ####[facility] [address] [place], [address] MCHC (RBC) [Mass/Vol] 33.4 g/dL Normal 32-36 [facility] [facility] Comment on above: Performed By: #### L 100.0500, L500.2500 ####[facility] [address] [place], [address] MCV (RBC) [Entitic vol] 111.3 fL High 81-99 [facility] Comment on above: Performed By: #### L 100.0500, L500.2500 ####[facility] [address] [place], [address] Platelet mean volume (Bld) [Entitic vol] 10.6 fL Normal 6.2-12.0 [facility] Comment on above: Performed By: #### L 100.0500, L500.2500 ####[facility] [address] [place], [address] Platelets (Bld) [#/Vol] 176 10*3/uL Normal 150-450 [facility] Comment on above: Performed By: #### L 100.0500, L500.2500 ####[facility] [address] [place], [address] RBC (Bld) [#/Vol] 2.74 10*6/uL Low 4.2-5.4 [facility] Comment on above: Performed By: #### L 100.0500, L500.2500 ####[facility] [address] [place], [address] RDW SD 65.1 fl High 35.1-43.9 [facility] Comment on above: Performed By: #### L 100.0500, L500.2500 ####[facility] [address] [place], [address] WBC (Bld) [#/Vol] 7.1 10*3/uL Normal 4.4-11.0 [facility] Comment on above: Performed By: #### L 100.0500, L500.2500 ####[facility] [address] [place], [address] Extremity Lower without Cont raon 10-17-2024 Extremity Lower without Contra Normal [facility] Bedside Glucoseon 10-16-2024 FINGERSTICK GLU 113 mg/dL High 74-106 [facility] Comment on above: Result Comment: TRACEY SALDAÑA OF PATIENT CARE PER NURSING PROTOCOL Performed By: #### L 501.080 ####[facility] [address] [place], [address] Consultation - Hospitaliston 10-16-2024 Consultation - Hospitalist Normal [facility] Knee 1 or 2 Viewson 10-17-19 25 Knee 1 or 2 Views Normal [facility] Knee 1 or 2 Views Normal [facility] MR/POSTOP.ANEon 10-16-2024 MR/POSTOP.ANE Normal [facility] MR/[id number] 10-16-2024 MR/POSTOPAN2 Normal [facility] Operative Reporton 5 Operative Report Normal [facility] MRSA/SAID NASAL SCREENon MRSA+SAID SCRN Negative Normal [facility] Comment on above: Performed By: #### M 100.651 ####[facility] [address] [place], [address] Absolute lymphocyte countOrd ered By: Carolyn Ruvalcaba on 10-11-2024 Lymphocytes Auto (Unsp spec) [#/Vol] 1.13 10*3/uL 0.83-4.51 [facility] Absolute neutrophil countOrd ered By: Carolynmilka NicolePeg on 10-11-2024 Neutrophils (Bld) [#/Vol] 2.1 10*3/uL 2.0-7.7 [facility] Anion gap in Serum or Plasma Ordered By: Carolyn Ruvalcaba on 10-11-2024 Anion gap [Moles/Vol] 13 mmol/L 5-15 [facility] Automated lymphocyte count a s percentage of total leukocytesOrdered By: Carolyn Ruvalcaba on 10-11-2024 Lymphocytes/100 WBC Auto (Unsp spec) 30.5 % 19- [facility] BUN/creatinine ratioOrdered By: Carolyn Ruvalcaba on 10-11-2024 Urea nitrogen/Creatinine [Mass ratio] 14.2 mg/mg 10-20 [facility] Basophil percentageOrdered B y: Carolyn Ruvalcaba on 10-11-2024 Basophils/100 WBC (Bld) 0.3 % 0-1 [facility] Bilirubin, totalOrdered By: Carolyn Ruvalcaba on 10-11-2024 Bilirubin [Mass/Vol] 0.40 mg/dL 0.00-1.30 [facility] Blood manual differential co mment interpretation (narrative result)Ordered By: Carolyn Ruvalcaba on 10-11-2024 Manual differential comment Jack (Bld) [Interp] SCANNED [facility] Blood polychromasia detectio n by light microscopyOrdered By: Carolyn Ruvalcaba on 10-11-2024 Polychromasia LM Ql (Bld) 1+ [facility] CBC W/Diff, Automatedon 09-20 Anisocytosis Ql (Bld) 1+ Normal [facility] Comment on above: Performed By: #### L 100.0100, L500.4050 ####[facility] [address] [place], [address] POLYCHROMASIA 1+ Normal [facility] Comment on above: Performed By: #### L 100.0100, L500.4050 ####[facility] [address] [place], [address] PLT EST ADEQUATE Normal ADEQ [facility] Comment on above: Performed By: #### L 100.0100, L500.4050 ####[facility] [address] [place], [address] SMEAR COMMENT SCANNED Normal [facility] Comment on above: Performed By: #### L 100.0100, L500.4050 ####[facility] [address] [place], [address] Carbon dioxide, total [Moles /volume] in Central venous bloodOrdered By: Carolyn Ruvalcaba on 10-11-2024 CO2 [Moles/Vol] 21.4 mmol/L 21.0-32.0 [facility] Chloride assayOrdered By: Ke Ruvalcaba on 10-11-2024 Chloride [Moles/Vol] 102 mmol/L 98-108 [facility] Comprehensive Metabolic Prof ilon 10-11-2024 Albumin [Mass/Vol] 4.0 g/dL Normal 3.4-4.8 [facility] Comment on above: Order Comment: CC: C MP CBCD TO DR RODRIGUEZ Performed By: #### L 100.0100, L500.4050 ####[facility] [address] [place], [address] Albumin/Globulin [Mass ratio] 1.4 {ratio} Normal 0.9-2.4 [facility] Comment on above: Order Comment: CC: C MP CBCD TO DR RODRIGUEZ Performed By: #### L 100.0100, L500.4050 ####[facility] [address] [place], [address] ALK PHOS 82 U/L Normal 35-104 [facility] Comment on above: Order Comment: CC: C MP CBCD TO DR RODRIGUEZ Performed By: #### L 100.0100, L500.4050 ####[facility] [address] [place], [address] ALT [Catalytic activity/Vol] 14 U/L Normal <=34 [facility] Comment on above: Order Comment: CC: C MP CBCD TO DR RODRIGUEZ Performed By: #### L 100.0100, L500.4050 ####[facility] [address] [place], [address] AST [Catalytic activity/Vol] 22 U/L Normal <=31 [facility] Comment on above: Order Comment: CC: C MP CBCD TO DR RODRIGUEZ Performed By: #### L 100.0100, L500.4050 ####[facility] [address] [place], [address] Bilirubin [Mass/Vol] 0.40 mg/dL Normal 0.00-1.30 [facility] Comment on above: Order Comment: CC: C MP CBCD TO DR RODRIGUEZ Performed By: #### L 100.0100, L500.4050 ####[facility] [address] [place], [address] BUN/CRE 14.2 RATIO Normal 10-20 [facility] Comment on above: Order Comment: CC: C MP CBCD TO DR RODRIGUEZ Performed By: #### L 100.0100, L500.4050 ####[facility] [address] [place], [address] Calcium [Mass/Vol] 9.3 mg/dL Normal 7.6-11.0 [facility] Comment on above: Order Comment: CC: C MP CBCD TO DR RODRIGUEZ Performed By: #### L 100.0100, L500.4050 ####[facility] [address] [place], [address] Chloride [Moles/Vol] 102 mmol/L Normal 98-108 [facility] Comment on above: Order Comment: CC: C MP CBCD TO DR RODRIGUEZ Performed By: #### L 100.0100, L500.4050 ####[facility] [address] [place], [address] CO2 [Moles/Vol] 21.4 mmol/L Normal 21.0-32.0 [facility] Comment on above: Order Comment: CC: C MP CBCD TO DR RODRIGUEZ Performed By: #### L 100.0100, L500.4050 ####[facility] [address] [place], [address] Creatinine [Mass/Vol] 1.08 mg/dL Normal 0.70-1.20 [facility] Comment on above: Order Comment: CC: C MP CBCD TO DR RODRIGUEZ Performed By: #### L 100.0100, L500.4050 ####[facility] [address] [place], [address] ECRCL 44.99 ml/min Low 50-250 [facility] Comment on above: Order Comment: CC: C MP CBCD TO DR RODRIGUEZ Performed By: #### L 100.0100, L500.4050 ####[facility] [address] [place], [address] GAP 13 Normal 5-15 [facility] Comment on above: Order Comment: CC: C MP CBCD TO DR RODRIGUEZ Performed By: #### L 100.0100, L500.4050 ####[facility] [address] [place], [address] GFR/1.73 sq M.predicted among non-blacks MDRD (S/P/Bld) [Vol rate/Area] 52 mL/min/{1.73_m2} Low >60 [facility] Comment on above: Order Comment: CC: C MP CBCD TO DR RODRIGUEZ Result Comment: mL/m in/1.73m2 CKD-EPI Creatinine Equation (2020) Performed By: #### L 100.0100, L500.4050 ####[facility] [address] [place], [address] Globulin (S) [Mass/Vol] 2.9 g/dL Normal 2.2-4.2 [facility] Comment on above: Order Comment: CC: C MP CBCD TO DR RODRIGUEZ Performed By: #### L 100.0100, L500.4050 ####[facility] [address] [place], [address] Glucose [Mass/Vol] 129 mg/dL High 70-99 [facility] Comment on above: Order Comment: CC: C MP CBCD TO DR RODRIGUEZ Performed By: #### L 100.0100, L500.4050 ####[facility] [address] [place], [address] Potassium [Moles/Vol] 4.1 mmol/L Normal 3.3-5.1 [facility] Comment on above: Order Comment: CC: C MP CBCD TO DR RODRIGUEZ Performed By: #### L 100.0100, L500.4050 ####[facility] [address] [place], [address] Sodium [Moles/Vol] 136 mmol/L Normal 133-145 [facility] Comment on above: Order Comment: CC: C MP CBCD TO DR RODRIGUEZ Performed By: #### L 100.0100, L500.4050 ####[facility] [address] [place], [address] T PROT 6.9 g/dL Normal 5.9-8.4 [facility] Comment on above: Order Comment: CC: C MP CBCD TO DR RODRIGUEZ Performed By: #### L 100.0100, L500.4050 ####[facility] [address] [place], [address] Urea nitrogen [Mass/Vol] 15 mg/dL Normal 4-19 [facility] Comment on above: Order Comment: CC: C MP CBCD TO DR RODRIGUEZ Performed By: #### L 100.0100, L500.4050 ####[facility] [address] [place], [address] Eosinophil percentageOrdered By: Carolyn Ruvalcaba on 10-11-2024 Eosinophils/100 WBC (Bld) 1.1 % 0-5 [facility] Erythrocyte distribution wid th ratioOrdered By: Carolyn Ruvalcaba on 10-11-2024 Erythrocyte distribution width (RBC) [Ratio] 16.2 % High 11.6-14.6 [facility] Erythrocyte distribution wid th standard deviationOrdered By: Carolyn Ruvalcaba on 10-11-2024 Erythrocyte distribution width (RBC) [Ratio] 65.8 fl High 35.1-43.9 [facility] Glomerular filtration rate ( GFR) estimation/1.73 sq m using serum, plasma, or whole bOrdered By: Carolyn Ruvalcaba on 10-11-2024 GFR/1.73 sq M.predicted among non-blacks MDRD (S/P/Bld) [Vol rate/Area] 52 mL/min/{1.73_m2} Low >60 [facility] Comment on above: mL/min/1.73m2 CKD-EP I Creatinine Equation (2020) Hematocrit Auto (Bld) [Volum e fraction]Ordered By: Carolyn Ruvalcaba on 10-11-2024 Hematocrit (Bld) [Volume fraction] 36.1 % Low 37-47 [facility] Hemoglobin measurementOrdere d By: Carolyn Ruvalcaba on 10-11-2024 Hemoglobin (Bld) [Mass/Vol] 12.1 g/dL 12.0-15.0 [facility] Immature granulocytes/100 WB C Auto (Bld)Ordered By: Carolyn Peg on 10-11-2024 Immature granulocytes/100 WBC (Bld) 0.500 % 0.0-0.9 [facility] Comment on above: IG% - Immature Granu locytes (promyelocytes, myelocytes and metamyelocytes) > 1% indicates that a LEFT SHIFT is Present. Laboratory - Chemistry and C hemistry - challengeOrdered By: Carolyn Ruvalcaba on 10-11-2024 AST [Catalytic activity/Vol] 22 U/L <32 [facility] Laboratory - Hematology and Cell countsOrdered By: Carolyn Peg on 10-11-2024 Anisocytosis Ql (Bld) 1+ [facility] MCV (mean corpuscular volume ) determinationOrdered By: Carolyn Ruvalcaba on 10-11-2024 MCV (RBC) [Entitic vol] 110.7 fL High 81-99 [facility] MRSA screenOrdered By: Az Rodriguez on 10-11-2024 MRSA DNA JANY+probe Ql (Unsp spec) [facility] Mean corpuscular hemoglobin (MCH) determinationOrdered By: Carolyn NicolePeg on 10-11-2024 MCH (RBC) [Entitic mass] 37.1 pg High 27.0-32.0 [facility] Mean corpuscular hemoglobin concentration (MCHC) determinationOrdered By: Carolyn NicolePeg on 10-11-2024 MCHC (RBC) [Mass/Vol] 33.5 g/dL 32-36 [facility] Mean platelet volume determi nationOrdered By: Carolyn NicolePeg on 10-11-2024 Platelet mean volume (Bld) [Entitic vol] 10.3 fL 6.2-12.0 [facility] Monocyte percentageOrdered B y: Carolyn Ruvalcaba on 10-11-2024 Monocytes/100 WBC (Bld) 10.3 % High 0-10 [facility] Neutrophil percentageOrdered By: Carolyn Ruvalcaba on 10-11-2024 Neutrophils/100 WBC (Bld) 57.3 % 47-70 [facility] No Panel InformationOrdered By: Carolyn Ruvalcaba on 10-11-2024 1+ [facility] 22 U/L <32 [facility] Nucleated red blood cell per centageOrdered By: Carolyn Ruvalcaba on 10-11-2024 Nucleated RBC/100 WBC (Bld) [Ratio] 0 % 0-5 [facility] Oncology Visit Reporton 09-20 Oncology Visit Report Normal [facility] Platelet countOrdered By: Ty ra Peg on 10-11-2024 Platelets (Bld) [#/Vol] 244 10*3/uL 150-450 [facility] Platelet estimateOrdered By: Carolyn Ruvalcaba on 10-11-2024 Platelets LM Ql (Bld) ADEQUATE ADEQ [facility] Potassium measurement (mass/ volume)Ordered By: Carolyn Ruvalcaba on 10-11-2024 Potassium (Unsp spec) [Mass/Vol] 4.1 mmol/L 3.3-5.1 [facility] RBC Auto (Bld) [#/Vol]Ordere d By: Carolyn NicolePeg on 10-11-2024 RBC (Bld) [#/Vol] 3.26 10*6/uL Low 4.2-5.4 [facility] Serum creatinine measurement (mass/volume)Ordered By: Carolyn Ruvalcaba on 10-11-2024 Creatinine [Mass/Vol] 1.08 mg/dL 0.70-1.20 [facility] Serum globulin measurementOr dered By: Carolyn Ruvalcaba on 10-11-2024 Globulin (S) [Mass/Vol] 2.9 g/dL 2.2-4.2 [facility] Serum glucose measurement (m ass/volume)Ordered By: Carolyn Ruvalcaba on 10-11-2024 Glucose [Mass/Vol] 129 mg/dL High 70-99 [facility] Serum or plasma alanine bey otransferase (ALT) measurementOrdered By: Carolyn Ruvalcaba on 10-11-2024 ALT [Catalytic activity/Vol] 14 U/L <35 [facility] Serum or plasma albumin niels urement (mass/volume)Ordered By: Carolyn Ruvalcaba on 10-11-2024 Albumin [Mass/Vol] 4.0 g/dL 3.4-4.8 [facility] Serum or plasma albumin/glob ulin mass ratioOrdered By: Carolyn Ruvalcaba on 10-11-2024 Albumin/Globulin [Mass ratio] 1.4 {ratio} 0.9-2.4 [facility] Serum or plasma alkaline victor hugo sphatase measurementOrdered By: Carolyn Ruvalcaba 10-11-2024 ALP [Catalytic activity/Vol] 82 U/L 35-104 [facility] Serum or plasma calcium niels urement (mass/volume)Ordered By: Carolyn Ruvalcaba 10-11-2024 Calcium [Mass/Vol] 9.3 mg/dL 7.6-11.0 [facility] Serum or plasma urea nitroge n measurement (mass/volume)Ordered By: Carolyn Ruvalcaba 10-11-2024 Urea nitrogen [Mass/Vol] 15 mg/dL 4-19 [facility] Sodium levelOrdered By: Carolyn Ruvalcaba on 10-11-2024 Sodium [Moles/Vol] 136 mmol/L 133-145 [facility] Total proteinOrdered By: Nayan Ruvalcaba on 10-11-2024 Protein [Mass/Vol] 6.9 g/dL 5.9-8.4 [facility] White blood cell (WBC) count Ordered By: Carolyn Ruvalcaba on 10-11-2024 WBC (Bld) [#/Vol] 3.7 10*3/uL Low 4.4-11.0 [facility] MR/PAT.ANEon 10-05-2024 MR/PAT.ANE Normal [facility] Cardiology Visit Reporton Cardiology Visit Report Normal [facility] Electrocardiogram reportOrde red By: Omero Armas on 08-03-2024 EKG study [facility] [address] [place] [address] 12 Lead EKG 08/01/24 1400 MR#: [id number] Acct: [id number] Name: BERNICE HASSAN Rep #:[id number] : 1945 79 From: Omero betancur MD Attending Dr: Dr. Dago Emery MD Status: REG CLI Ordering Dr: Dago Emery MD Date: Location: [facility] Sex: F C Admitted: Test Reason [...] effect Abnormal ECG Confirmed by Omero Armas ([id number]), production editor BONY SANCHEZ ([id number]) on 08/03/2024 10:09:09 AM Referred By: Dago Emery Confirmed By: Omero Armas 08/03/24 1009 Date _ Omero Armas MD CC: Dr. Dago Emery MD ~ Signed [facility] Other Phone: MRSA/SAID NASAL SCREENon MRSA+SAID SCRN Reason for Exam: PRE OP MRSA MRSA Negative S. AUREUS S. aureus Negative Normal [facility] Comment on above: Performed By: #### M 100.651, L501.1800 ####[facility] [address] [place], [address] 12 Lead EKGon 08-01-2024 12 Lead EKG Normal [facility] Extremity Lower without Cont raon 08-01-2024 Extremity Lower without Contra Normal [facility] MR/PAT.ANEon 08-01-2024 MR/PAT.ANE Normal [facility] Activated partial thrombopla stin time (aPTT) in platelet poor plasma by coagulation aOrdered By: Dago Emery on 07-31-2024 aPTT Coag (PPP) [Time] 26.1 s 24.1-36.2 [facility] Albumin, Serumon 07-31-2024 Albumin [Mass/Vol] 3.9 g/dL Normal 3.4-4.8 [facility] Comment on above: Performed By: #### M 100.651, L501.1800 ####[facility] [address] [place], [address] Bilirubin, totalOrdered By: Dago Emery on 07-31-2024 Bilirubin [Mass/Vol] 0.42 mg/dL 0.00-1.30 [facility] Comprehensive Metabolic Prof ilon 07-31-2024 Albumin [Mass/Vol] 4.0 g/dL Normal 3.4-4.8 [facility] Comment on above: Performed By: #### L 300.4310, L500.4050, L300.3900, L506.1001 ####[facility] [address] [place], [address] Albumin/Globulin [Mass ratio] 1.6 {ratio} Normal 0.9-2.4 [facility] Comment on above: Performed By: #### L 300.4310, L500.4050, L300.3900, L506.1001 ####[facility] [address] [place], [address] ALK PHOS 92 U/L Normal 35-104 [facility] Comment on above: Performed By: #### L 300.4310, L500.4050, L300.3900, L506.1001 ####[facility] [address], [address] ALT [Catalytic activity/Vol] 14 U/L Normal <=34 [facility] Comment on above: Performed By: #### L 300.4310, L500.4050, L300.3900, L506.1001 ####[facility] [address] [place], [address] AST [Catalytic activity/Vol] 22 U/L Normal <=31 [facility] Comment on above: Performed By: #### L 300.4310, L500.4050, L300.3900, L506.1001 ####[facility] [address] [place], [address] Bilirubin [Mass/Vol] 0.42 mg/dL Normal 0.00-1.30 [facility] Comment on above: Performed By: #### L 300.4310, L500.4050, L300.3900, L506.1001 ####[facility] [address] [place], [address] BUN/CRE 19.1 RATIO Normal 10-20 [facility] Comment on above: Performed By: #### L 300.4310, L500.4050, L300.3900, L506.1001 ####[facility] [address] [place], [address] Calcium [Mass/Vol] 9.5 mg/dL Normal 7.6-11.0 [facility] Comment on above: Performed By: #### L 300.4310, L500.4050, L300.3900, L506.1001 ####[facility] [address] [place], [address] Chloride [Moles/Vol] 105 mmol/L Normal 98-108 [facility] Comment on above: Performed By: #### L 300.4310, L500.4050, L300.3900, L506.1001 ####[facility] [address] [place], [address] CO2 [Moles/Vol] 23.0 mmol/L Normal 21.0-32.0 [facility] Comment on above: Performed By: #### L 300.4310, L500.4050, L300.3900, L506.1001 ####[facility] [address] [place], [address] Creatinine [Mass/Vol] 0.97 mg/dL Normal 0.70-1.20 [facility] Comment on above: Performed By: #### L 300.4310, L500.4050, L300.3900, L506.1001 ####[facility] [address] [place], [address] GAP 12 Normal 5-15 [facility] Comment on above: Performed By: #### L 300.4310, L500.4050, L300.3900, L506.1001 ####[facility] [address] [place], [address] GFR/1.73 sq M.predicted among non-blacks MDRD (S/P/Bld) [Vol rate/Area] 59 mL/min/{1.73_m2} Low >60 [facility] Comment on above: Result Comment: mL/m in/1.73m2 CKD-EPI Creatinine Equation (2020) Performed By: #### L 300.4310, L500.4050, L300.3900, L506.1001 ####[facility] [address] [place], [address] Globulin (S) [Mass/Vol] 2.4 g/dL Normal 2.2-4.2 [facility] Comment on above: Performed By: #### L 300.4310, L500.4050, L300.3900, L506.1001 ####[facility] [address] [place], [address] Glucose [Mass/Vol] 127 mg/dL High 70-99 [facility] Comment on above: Performed By: #### L 300.4310, L500.4050, L300.3900, L506.1001 ####[facility] [address] [place], [address] Potassium [Moles/Vol] 4.5 mmol/L Normal 3.3-5.1 [facility] Comment on above: Performed By: #### L 300.4310, L500.4050, L300.3900, L506.1001 ####[facility] [address] [place], [address] Sodium [Moles/Vol] 139 mmol/L Normal 133-145 [facility] Comment on above: Performed By: #### L 300.4310, L500.4050, L300.3900, L506.1001 ####[facility] [address] [place], [address] T PROT 6.4 g/dL Normal 5.9-8.4 [facility] Comment on above: Performed By: #### L 300.4310, L500.4050, L300.3900, L506.1001 ####[facility] [address] [place], [address] Urea nitrogen [Mass/Vol] 19 mg/dL Normal 4-19 [facility] Comment on above: Performed By: #### L 300.4310, L500.4050, L300.3900, L506.1001 ####[facility] [address] [place], [address] International normalized rat io (INR) calculationOrdered By: Dago Emery on 07-31-2024 INR Coag (Bld) [Relative time] 0.9 {INR} [facility] Laboratory - Chemistry and C hemistry - challengeOrdered By: Dago Emery on 07-31-2024 AST [Catalytic activity/Vol] 22 U/L <32 [facility] MRSA screenOrdered By: Az Rodriguez on 07-31-2024 MRSA DNA JANY+probe Ql (Unsp spec) [facility] Magnesiumon 07-31-2024 Magnesium [Mass/Vol] 2.3 mg/dL High 1.5-2.2 [facility] Comment on above: Performed By: #### L 501.5200, L501.9520 ####[facility] [address] [place], [address] Magnesium measurement (mass/ volume)Ordered By: Jg Pandey on 07-31-2024 Magnesium (Unsp spec) [Mass/Vol] 2.3 mg/dL High 1.5-2.2 [facility] No Panel InformationOrdered By: Dago Emery on 07-31-2024 22 U/L <32 [facility] Partial Thromboplast Timeon 07-31-2024 aPTT Coag (Bld) [Time] 26.1 s Normal 24.1-36.2 [facility] Comment on above: Performed By: #### L 300.4310, L500.4050, L300.3900, L506.1001 ####[facility] [address] [place], [address] Prothrombin Time w/INRon INR Coag (PPP) [Relative time] 0.9 {INR} Normal [facility] Comment on above: Performed By: #### L 300.4310, L500.4050, L300.3900, L506.1001 ####[facility] [address] [place], [address] PT Coag (PPP) [Time] 12.6 s Normal 11.7-14.9 [facility] Comment on above: Performed By: #### L 300.4310, L500.4050, L300.3900, L506.1001 ####[facility] [address] [place], [place], [id number] Prothrombin timeOrdered By: Dago Emery on 07-31-2024 PT Coag (PPP) [Time] 12.6 s 11.7-14.9 [facility] Serum globulin measurementOr dered By: Dago Emery on 07-31-2024 Globulin (S) [Mass/Vol] 2.4 g/dL 2.2-4.2 [facility] Serum or plasma alanine bey otransferase (ALT) measurementOrdered By: Dago Emery on 07-31-2024 ALT [Catalytic activity/Vol] 14 U/L <35 [facility] Serum or plasma albumin niels urement (mass/volume)Ordered By: Dago Emery on 07-31-2024 Albumin [Mass/Vol] 4.0 g/dL 3.4-4.8 [facility] Serum or plasma albumin/glob ulin mass ratioOrdered By: Dago Emery on 07-31-2024 Albumin/Globulin [Mass ratio] 1.6 {ratio} 0.9-2.4 [facility] Serum or plasma alkaline victor hugo sphatase measurementOrdered By: Dago Emery 07-31-2024 ALP [Catalytic activity/Vol] 92 U/L 35-104 [facility] TSH DL <= 0.005 mIU/L QnOrde red By: Jg Pandey on 07-31-2024 TSH Qn 1.470 uIU/mL 0.300-4.20 0 [facility] Thyroid Stim Hormone (TSH)on 07-31-2024 TSH 1.470 uIU/mL Normal 0.300-4.20 0 [facility] Comment on above: Performed By: #### L 501.5200, L501.9518 ####[facility] [address] [place], [place], [id number] Total proteinOrdered By: Dago Emery on 07-31-2024 Protein [Mass/Vol] 6.4 g/dL 5.9-8.4 [facility] Vitamin D,25 Hydroxyon 07-31 Vitamin D 25-OH 18.9 ng/mL Low 30-100 [facility] Comment on above: Result Comment: [place] min D StatusDeficiency: <20 ng/mL (50nmol/L)Insufficiency: 20-30 ng/mL (50-75 nmol/L)Sufficiency: 30-100 ng/mL (75-250 nmol/L)Toxicity: >100 ng/mL (>250 nmol/L) Performed By: #### L 300.4310, L500.4050, L300.3900, L506.1001 ####[facility] [address] [place], [place], [id number] Absolute lymphocyte countOrd ered By: [facility] on 07-10-[facility]24 Lymphocytes Auto (Unsp spec) [#/Vol] 1.19 10*3/uL 0.83-4.51 [facility] Absolute neutrophil countOrd ered By: [facility] on 07-10-2024 Neutrophils (Bld) [#/Vol] 3.7 10*3/uL 2.0-7.7 [facility] Anion gap in Serum or Plasma Ordered By: [facility] on 07-10-2024 Anion gap [Moles/Vol] 10 mmol/L 5-15 [facility] Automated lymphocyte count a s percentage of total leukocytesOrdered By: [facility] on 07-10-2024 Lymphocytes/100 WBC Auto (Unsp spec) 22.0 % 19-41 [facility] BUN/creatinine ratioOrdered By: [facility] on 07-10-2024 Urea nitrogen/Creatinine [Mass ratio] 20.2 mg/mg High 10-20 [facility] Basophil percentageOrdered B y: [facility] on 07-10-2024 Basophils/100 WBC (Bld) 0.4 % 0-1 [facility] Bilirubin, totalOrdered By: [facility] on 07-10-2024 Bilirubin [Mass/Vol] 0.40 mg/dL 0.00-1.30 [facility] CBC W/Diff, Automatedon - Absolute Lymph 1.19 X10 3/uL Normal 0.83-4.51 [facility] Comment on above: Performed By: #### L 100.0100, L500.4050 ####[facility] [address] [place], [address] Absolute Neut 3.7 X10 3/uL Normal 2.0-7.7 [facility] Comment on above: Performed By: #### L 100.0100, L500.4050 ####[facility] [address] [place], [address] Basophils/100 WBC (Bld) 0.4 % Normal 0-1 [facility] Comment on above: Performed By: #### L 100.0100, L500.4050 ####[facility] [address] [place], [address] Eosinophils/100 WBC (Bld) 1.3 % Normal 0-5 [facility] Comment on above: Performed By: #### L 100.0100, L500.4050 ####[facility] [address] [place], [address] Erythrocyte distribution width (RBC) [Ratio] 14.9 % High 11.6-14.6 [facility] Comment on above: Performed By: #### L 100.0100, L500.4050 ####[facility] [address] [place], [address] Hematocrit (Bld) [Volume fraction] 38.9 % Normal 37-47 [facility] Comment on above: Performed By: #### L 100.0100, L500.4050 ####[facility] [address] [place], [address] Hemoglobin (Bld) [Mass/Vol] 13.0 g/dL Normal 12.0-15.0 [facility] Comment on above: Performed By: #### L 100.0100, L500.4050 ####[facility] [address] [place], [address] IG% 0.400 Normal 0.0-0.9 [facility] Comment on above: Result Comment: IG% - Immature Granulocytes (promyelocytes, myelocytes andmetamyelocytes) > 1% indicates that a LEFT SHIFT is Present. Performed By: #### L 100.0100, L500.4050 ####[facility] [address] [place], [address] Lymphocytes/100 WBC (Bld) 22.0 % Normal 19-41 [facility] Comment on above: Performed By: #### L 100.0100, L500.4050 ####[facility] [address] [place], [address] MCH (RBC) [Entitic mass] 36.6 pg High 27.0-32.0 [facility] Comment on above: Performed By: #### L 100.0100, L500.4050 ####[facility] [address] [place], [address] MCHC (RBC) [Mass/Vol] 33.4 g/dL Normal 32-36 [facility] Comment on above: Performed By: #### L 100.0100, L500.4050 ####[facility] [address] [place], [address] MCV (RBC) [Entitic vol] 109.6 fL High 81-99 [facility] Comment on above: Performed By: #### L 100.0100, L500.4050 ####[facility] [address] [place], [address] Monocytes/100 WBC (Bld) 8.5 % Normal 0-10 [facility] Comment on above: Performed By: #### L 100.0100, L500.4050 ####[facility] [address] [place], [address] Neutrophils/100 WBC (Bld) 67.4 % Normal 47-70 [facility] Comment on above: Performed By: #### L 100.0100, L500.4050 ####[facility] [address] [place], [address] Nucleated RBC (Bld) [#/Vol] 0 10*3/uL Normal 0-5 [facility] Comment on above: Performed By: #### L 100.0100, L500.4050 ####[facility] [address] [place], [address] Platelet mean volume (Bld) [Entitic vol] 10.9 fL Normal 6.2-12.0 [facility] Comment on above: Performed By: #### L 100.0100, L500.4050 ####[facility] [address] [place], [address] Platelets (Bld) [#/Vol] 252 10*3/uL Normal 150-450 [facility] Comment on above: Performed By: #### L 100.0100, L500.4050 ####[facility] [address] [place], [address] RBC (Bld) [#/Vol] 3.55 10*6/uL Low 4.2-5.4 [facility] Comment on above: Performed By: #### L 100.0100, L500.4050 ####[facility] [address] [place], [address] RDW SD 60.0 fl High 35.1-43.9 [facility] Comment on above: Performed By: #### L 100.0100, L500.4050 ####[facility] [address] [place], [address] WBC (Bld) [#/Vol] 5.4 10*3/uL Normal 4.4-11.0 [facility] Comment on above: Performed By: #### L 100.0100, L500.4050 ####[facility] [address] [place], [address] Carbon dioxide, total [Moles /volume] in Central venous bloodOrdered By: Umang Pate on 07-10-2024 CO2 [Moles/Vol] 23.6 mmol/L 21.0-32.0 [facility] Chloride assayOrdered By: Lara Pate on 07-10-2024 Chloride [Moles/Vol] 105 mmol/L 98-108 [facility] Comprehensive Metabolic Prof ilon 07-10-2024 Albumin [Mass/Vol] 4.0 g/dL Normal 3.4-4.8 [facility] Comment on above: Performed By: #### L 100.0100, L500.4050 ####[facility] [address] [place], [address] Albumin/Globulin [Mass ratio] 1.4 {ratio} Normal 0.9-2.4 [facility] Comment on above: Performed By: #### L 100.0100, L500.4050 ####[facility] [address] [place], [address] ALK PHOS 90 U/L Normal 35-104 [facility] Comment on above: Performed By: #### L 100.0100, L500.4050 ####[facility] [address] [place], [address] ALT [Catalytic activity/Vol] 14 U/L Normal <=34 [facility] Comment on above: Performed By: #### L 100.0100, L500.4050 ####[facility] [address] [place], [address] AST [Catalytic activity/Vol] 22 U/L Normal <=31 [facility] Comment on above: Performed By: #### L 100.0100, L500.4050 ####[facility] [address] [place], [address] Bilirubin [Mass/Vol] 0.40 mg/dL Normal 0.00-1.30 [facility] Comment on above: Performed By: #### L 100.0100, L500.4050 ####[facility] [address] [place], [address] BUN/CRE 20.2 RATIO High 10-20 [facility] Comment on above: Performed By: #### L 100.0100, L500.4050 ####[facility] [address] [place], [address] Calcium [Mass/Vol] 9.3 mg/dL Normal 7.6-11.0 [facility] Comment on above: Performed By: #### L 100.0100, L500.4050 ####[facility] [address] [place], [address] Chloride [Moles/Vol] 105 mmol/L Normal 98-108 [facility] Comment on above: Performed By: #### L 100.0100, L500.4050 ####[facility] [address] [place], [address] CO2 [Moles/Vol] 23.6 mmol/L Normal 21.0-32.0 [facility] Comment on above: Performed By: #### L 100.0100, L500.4050 ####[facility] [address] [place], [address] Creatinine [Mass/Vol] 0.97 mg/dL Normal 0.70-1.20 [facility] Comment on above: Performed By: #### L 100.0100, L500.4050 ####[facility] [address] [place], [address] ECRCL 50.94 ml/min Normal 50-250 [facility] Comment on above: Performed By: #### L 100.0100, L500.4050 ####[facility] [address] [place], [address] GAP 10 Normal 5-15 [facility] Comment on above: Performed By: #### L 100.0100, L500.4050 ####[facility] [address] [place], [address] GFR/1.73 sq M.predicted among non-blacks MDRD (S/P/Bld) [Vol rate/Area] 59 mL/min/{1.73_m2} Low >60 [facility] Comment on above: Result Comment: mL/m in/1.73m2 CKD-EPI Creatinine Equation (2020) Performed By: #### L 100.0100, L500.4050 ####[facility] [address] [place], [address] Globulin (S) [Mass/Vol] 2.9 g/dL Normal 2.2-4.2 [facility] Comment on above: Performed By: #### L 100.0100, L500.4050 ####[facility] [address] [place], [address] Glucose [Mass/Vol] 112 mg/dL High 70-99 [facility] Comment on above: Performed By: #### L 100.0100, L500.4050 ####[facility] [address] [place], [address] Potassium [Moles/Vol] 4.0 mmol/L Normal 3.3-5.1 [facility] Comment on above: Performed By: #### L 100.0100, L500.4050 ####[facility] [address] [place], [address] Sodium [Moles/Vol] 139 mmol/L Normal 133-145 [facility] Comment on above: Performed By: #### L 100.0100, L500.4050 ####[facility] [address] [place], [address] T PROT 6.9 g/dL Normal 5.9-8.4 [facility] Comment on above: Performed By: #### L 100.0100, L500.4050 ####[facility] [address] [place], [address] Urea nitrogen [Mass/Vol] 20 mg/dL High 4-19 [facility] Comment on above: Performed By: #### L 100.0100, L500.4050 ####[facility] [address] [place], [address] Eosinophil percentageOrdered By: Umang Pate on 07-10-2024 Eosinophils/100 WBC (Bld) 1.3 % 0-5 [facility] Erythrocyte distribution wid th ratioOrdered By: Umang Pate on 07-10-2024 Erythrocyte distribution width (RBC) [Ratio] 14.9 % High 11.6-14.6 [facility] Erythrocyte distribution wid th standard deviationOrdered By: [facility] on 07-10-2024 Erythrocyte distribution width (RBC) [Ratio] 60.0 fl High 35.1-43.9 [facility] Glomerular filtration rate ( GFR) estimation/1.73 sq m using serum, plasma, or whole bOrdered By: Umang Pate on 07-10-2024 GFR/1.73 sq M.predicted among non-blacks MDRD (S/P/Bld) [Vol rate/Area] 59 mL/min/{1.73_m2} Low >60 [facility] Comment on above: mL/min/1.73m2 CKD-EP I Creatinine Equation (2020) Hematocrit Auto (Bld) [Volum e fraction]Ordered By: Umang Pate on 07-10-2024 Hematocrit (Bld) [Volume fraction] 38.9 % 37-47 [facility] Hemoglobin measurementOrdere d By: Umang Pate on 07-10-2024 Hemoglobin (Bld) [Mass/Vol] 13.0 g/dL 12.0-15.0 [facility] Immature granulocytes/100 WB C Auto (Bld)Ordered By: Umang Pate on 07-10-2024 Immature granulocytes/100 WBC (Bld) 0.400 % 0.0-0.9 [facility] Comment on above: IG% - Immature Granu locytes (promyelocytes, myelocytes and metamyelocytes) > 1% indicates that a LEFT SHIFT is Present. Laboratory - Chemistry and C hemistry - challengeOrdered By: Umang Pate on 07-10-2024 AST [Catalytic activity/Vol] 22 U/L <32 [facility] MCV (mean corpuscular volume ) determinationOrdered By: Umang Pate on 07-10-2024 MCV (RBC) [Entitic vol] 109.6 fL High 81-99 [facility] Mean corpuscular hemoglobin (MCH) determinationOrdered By: Umang Pate on 07-10-2024 MCH (RBC) [Entitic mass] 36.6 pg High 27.0-32.0 [facility] Mean corpuscular hemoglobin concentration (MCHC) determinationOrdered By: Umang Pate on 07-10-2024 MCHC (RBC) [Mass/Vol] 33.4 g/dL 32-36 [facility] Mean platelet volume determi nationOrdered By: Umang Pate on 07-10-2024 Platelet mean volume (Bld) [Entitic vol] 10.9 fL 6.2-12.0 [facility] Monocyte percentageOrdered B y: Umang Pate on 07-10-2024 Monocytes/100 WBC (Bld) 8.5 % 0-10 [facility] Neutrophil percentageOrdered By: Umang Pate on 07-10-2024 Neutrophils/100 WBC (Bld) 67.4 % 47-70 [facility] Nucleated red blood cell per centageOrdered By: Umang Pate on 07-10-2024 Nucleated RBC/100 WBC (Bld) [Ratio] 0 % 0-5 [facility] Oncology Visit Reporton 06-21 Oncology Visit Report Normal [facility] Platelet countOrdered By: Lara Pate on 07-10-2024 Platelets (Bld) [#/Vol] 252 10*3/uL 150-450 [facility] Potassium measurement (mass/ volume)Ordered By: Umang Pate on 07-10-2024 Potassium (Unsp spec) [Mass/Vol] 4.0 mmol/L 3.3-5.1 [facility] RBC Auto (Bld) [#/Vol]Ordere d By: Umang Pate on 07-10-2024 RBC (Bld) [#/Vol] 3.55 10*6/uL Low 4.2-5.4 [facility] Serum creatinine measurement (mass/volume)Ordered By: Umang Pate on 07-10-2024 Creatinine [Mass/Vol] 0.97 mg/dL 0.70-1.20 [facility] Serum globulin measurementOr dered By: Umang Pate on 07-10-2024 Globulin (S) [Mass/Vol] 2.9 g/dL 2.2-4.2 [facility] Serum glucose measurement (m ass/volume)Ordered By: Umang Pate on 07-10-2024 Glucose [Mass/Vol] 112 mg/dL High 70-99 [facility] Serum or plasma alanine bey otransferase (ALT) measurementOrdered By: Umang Pate on 07-10-2024 ALT [Catalytic activity/Vol] 14 U/L <35 [facility] Serum or plasma albumin niels urement (mass/volume)Ordered By: Umang Pate on 07-10-2024 Albumin [Mass/Vol] 4.0 g/dL 3.4-4.8 [facility] Serum or plasma albumin/glob ulin mass ratioOrdered By: Umang Pate on 07-10-2024 Albumin/Globulin [Mass ratio] 1.4 {ratio} 0.9-2.4 [facility] Serum or plasma alkaline victor hugo sphatase measurementOrdered By: Umang Pate on 07-10-2024 ALP [Catalytic activity/Vol] 90 U/L 35-104 [facility] Serum or plasma calcium niels urement (mass/volume)Ordered By: Umang Pate on 07-10-2024 Calcium [Mass/Vol] 9.3 mg/dL 7.6-11.0 [facility] Serum or plasma urea nitroge n measurement (mass/volume)Ordered By: Umang Herlinda on 07-10-2024 Urea nitrogen [Mass/Vol] 20 mg/dL High 4-19 [facility] Sodium levelOrdered By: Aram Verajoy on 07-10-2024 Sodium [Moles/Vol] 139 mmol/L 133-145 [facility] Total proteinOrdered By: Seng Verashefali on 07-10-2024 Protein [Mass/Vol] 6.9 g/dL 5.9-8.4 [facility] White blood cell (WBC) count Ordered By: Umang Herlinda on 07-10-2024 WBC (Bld) [#/Vol] 5.4 10*3/uL 4.4-11.0 [facility] CBC W/Diff, Automatedon 12-0 Absolute Lymph 1.45 X10 3/uL Normal 0.83-4.51 [facility] Comment on above: Performed By: #### L 100.0100, L500.4050 ####[facility] [address] [place], [address] Absolute Neut 5.9 X10 3/uL Normal 2.0-7.7 [facility] Comment on above: Performed By: #### L 100.0100, L500.4050 ####[facility] [address] [place], [address] Basophils/100 WBC (Bld) 0.1 % Normal 0-1 [facility] Comment on above: Performed By: #### L 100.0100, L500.4050 ####[facility] [address] [place], [address] Eosinophils/100 WBC (Bld) 0.9 % Normal 0-5 [facility] Comment on above: Performed By: #### L 100.0100, L500.4050 ####[facility] [address] [place], [address] Erythrocyte distribution width (RBC) [Ratio] 14.6 % Normal 11.6-14.6 [facility] Comment on above: Performed By: #### L 100.0100, L500.4050 ####[facility] [address] [place], [address] Hematocrit (Bld) [Volume fraction] 40.3 % Normal 37-47 [facility] Comment on above: Performed By: #### L 100.0100, L500.4050 ####[facility] [address] [place], [address] Hemoglobin (Bld) [Mass/Vol] 13.3 g/dL Normal 12.0-15.0 [facility] Comment on above: Performed By: #### L 100.0100, L500.4050 ####[facility] [address] [place], [address] IG% 0.500 Normal 0.0-0.9 [facility] Comment on above: Result Comment: IG% - Immature Granulocytes (promyelocytes, myelocytes andmetamyelocytes) > 1% indicates that a LEFT SHIFT is Present. Performed By: #### L 100.0100, L500.4050 ####[facility] [address] [place], [address] Lymphocytes/100 WBC (Bld) 17.7 % Low 19-41 [facility] Comment on above: Performed By: #### L 100.0100, L500.4050 ####[facility] [address] [place], [address] MCH (RBC) [Entitic mass] 36.2 pg High 27.0-32.0 [facility] Comment on above: Performed By: #### L 100.0100, L500.4050 ####[facility] [address] [place], [address] MCHC (RBC) [Mass/Vol] 33.0 g/dL Normal 32-36 [facility] Comment on above: Performed By: #### L 100.0100, L500.4050 ####[facility] [address] [place], [address] MCV (RBC) [Entitic vol] 109.8 fL High 81-99 [facility] Comment on above: Performed By: #### L 100.0100, L500.4050 ####[facility] [address] [place], [address] Monocytes/100 WBC (Bld) 8.1 % Normal 0-10 [facility] Comment on above: Performed By: #### L 100.0100, L500.4050 ####[facility] [address] [place], [address] Neutrophils/100 WBC (Bld) 72.7 % High 47-70 [facility] Comment on above: Performed By: #### L 100.0100, L500.4050 ####[facility] [address] [place], [address] Nucleated RBC (Bld) [#/Vol] 0 10*3/uL Normal 0-5 [facility] Comment on above: Performed By: #### L 100.0100, L500.4050 ####[facility] [address] [place], [address] Platelet mean volume (Bld) [Entitic vol] 10.6 fL Normal 6.2-12.0 [facility] Comment on above: Performed By: #### L 100.0100, L500.4050 ####[facility] [address] [place], [address] Platelets (Bld) [#/Vol] 300 10*3/uL Normal 150-450 [facility] Comment on above: Performed By: #### L 100.0100, L500.4050 ####[facility] [address] [place], [address] RBC (Bld) [#/Vol] 3.67 10*6/uL Low 4.2-5.4 [facility] Comment on above: Performed By: #### L 100.0100, L500.4050 ####[facility] [address] [place], [address] RDW SD 58.3 fl High 35.1-43.9 [facility] Comment on above: Performed By: #### L 100.0100, L500.4050 ####[facility] [address] [place], [address] WBC (Bld) [#/Vol] 8.2 10*3/uL Normal 4.4-11.0 [facility] Comment on above: Performed By: #### L 100.0100, L500.4050 ####[facility] [address], [address] Comprehensive Metabolic Prof [facility] 02-22-2024 Albumin [Mass/Vol] 3.4 g/dL Normal 3.2-5.0 [facility] Comment on above: Performed By: #### L 100.0100, L500.4050 ####[facility] [address] [place], [address] Albumin/Globulin [Mass ratio] 1.0 {ratio} Normal 0.9-2.4 [facility] Comment on above: Performed By: #### L 100.0100, L500.4050 ####[facility] [address] [place], [address] ALK P 85 U/L Normal 45-117 [facility] Comment on above: Performed By: #### L 100.0100, L500.4050 ####[facility] [address] [place], [address] ALT [Catalytic activity/Vol] 29 U/L Normal 13-56 [facility] Comment on above: Performed By: #### L 100.0100, L500.4050 ####[facility] [address] [place], [address] AST [Catalytic activity/Vol] 25 U/L Normal 15-37 [facility] Comment on above: Result Comment: Mode rate Hemolysis, Result may be falsely increased. Performed By: #### L 100.0100, L500.4050 ####[facility] [address] [place], [address] Bilirubin [Mass/Vol] 0.70 mg/dL Normal 0.20-1.00 [facility] Comment on above: Result Comment: For patients on eltrombopag therapy, use of Dimension [place] TBIL is not recommended. Performed By: #### L 100.0100, L500.4050 ####[facility] [address] [place], [address] BUN/CRE 22.5 RATIO High 10-20 [facility] Comment on above: Performed By: #### L 100.0100, L500.4050 ####[facility] [address] [place], [address] CA,Total 8.9 mg/dL Normal 8.5-10.1 [facility] Comment on above: Performed By: #### L 100.0100, L500.4050 ####[facility] [id number] [place], [address] Chloride [Moles/Vol] 109 mmol/L High 98-107 [facility] Comment on above: Performed By: #### L 100.0100, L500.4050 ####[facility] [id number] [place], [address] CO2 [Moles/Vol] 27.0 mmol/L Normal 21.0-32.0 [facility] Comment on above: Performed By: #### L 100.0100, L500.4050 ####[facility] [address] [place], [address] Creatinine [Mass/Vol] 0.94 mg/dL Normal 0.55-1.02 [facility] Comment on above: Result Comment: The validity of the calculated GFR GFRAA in patients over70 years has not been determined. Clinical correlation isessential. Performed By: #### L 100.0100, L500.4050 ####[facility] [id number] [place], [address] ECRCL 52.57 ml/min Normal [facility] Comment on above: Performed By: #### L 100.0100, L500.4050 ####[facility] [address] [place], [address] EST GFR - AA 74 mL/min Normal >60 [facility] Comment on above: Result Comment: Afri can Spanish GFR Calc Performed By: #### L 100.0100, L500.4050 ####[facility] [address] [place], [address] GAP 4 Low 5-15 [facility] Comment on above: Performed By: #### L 100.0100, L500.4050 ####[facility] [address] [place], [address] GFR/1.73 sq M.predicted among non-blacks MDRD (S/P/Bld) [Vol rate/Area] 61 mL/min/{1.73_m2} Normal >60 [facility] Comment on above: Result Comment: Non- GFR Calc Performed By: #### L 100.0100, L500.4050 ####[facility] [address] [place], [address] Globulin (S) [Mass/Vol] 3.5 g/dL Normal 2.2-4.2 [facility] Comment on above: Performed By: #### L 100.0100, L500.4050 ####[facility] [address] [place], [address] Glucose [Mass/Vol] 110 mg/dL High 74-106 [facility] Comment on above: Result Comment: Fast ing Glucose result from 100 to 125 mg/dLsuggests IMPAIRED HOMEOSTASIS per A.D.A. criteria. Performed By: #### L 100.0100, L500.4050 ####[facility] [address] [place], [address] Potassium [Moles/Vol] 4.2 mmol/L Normal 3.5-5.1 [facility] Comment on above: Result Comment: Mode rate Hemolysis, Result may be falsely increased. Performed By: #### L 100.0100, L500.4050 ####[facility] [address] [place], [address] Sodium [Moles/Vol] 140 mmol/L Normal 136-145 [facility] Comment on above: Performed By: #### L 100.0100, L500.4050 ####[facility] [address] [place], [address] T PROT 6.9 g/dL Normal 6.4-8.2 [facility] Comment on above: Performed By: #### L 100.0100, L500.4050 ####[facility] [address] [place], [address] Urea nitrogen [Mass/Vol] 21 mg/dL High 7-18 [facility] Comment on above: Performed By: #### L 100.0100, L500.4050 ####[facility] [address] [place], [address] Oncology Visit Reporton 12-0 Oncology Visit Report Normal [facility] Laboratory - Hematology and Cell countsOrdered By: Umang Pate on 11-09-2023 Anisocytosis Ql (Bld) 1+ [facility] Serum or plasma thyroid stim ulating hormone (TSH) measurement (units/volume)Ordered By: Umang Pate on 08-05-2023 TSH Qn 1.06 uIU/mL 0.358-3.74 [facility] Absolute lymphocyte countOrd ered By: Dago Emery on 01-25-2023 Lymphocytes Auto (Unsp spec) [#/Vol] 1.06 10*3/uL 0.83-4.51 [facility] Basophil percentageOrdered B y: Dago Emery on 01-25-2023 Basophils/100 WBC (Bld) 0.2 % 0-1 [facility] Bilirubin [Mass/Vol] 0.40 mg/dL 0.20-1.00 [facility] Comment on above: For patients on eltr ombopag therapy, use of Dimension [place] TBIL is not recommended. Chloride [Moles/Vol] 108 mmol/L 98-107 [facility] Eosinophils/100 WBC (Bld) 1.1 % 0-5 [facility] Glucose [Mass/Vol] 116 mg/dL 74-106 [facility] Comment on above: Fasting Glucose resu lt from 100 to 125 mg/dL suggests IMPAIRED HOMEOSTASIS per A.D.A. criteria. Neutrophils (Bld) [#/Vol] 2.8 10*3/uL 2.0-7.7 [facility] Neutrophils/100 WBC (Bld) 64.3 % 47-70 [facility] Potassium [Moles/Vol] 3.6 mmol/L 3.5-5.1 [facility] Protein [Mass/Vol] 7.1 g/dL 6.4-8.2 [facility] Sodium [Moles/Vol] 141 mmol/L 136-145 [facility] WBC (Bld) [#/Vol] 4.4 10*3/uL 4.4-11.0 [facility] Blood erythrocytes count (nu mber/volume)Ordered By: Dago Emery on 01-25-2023 RBC (Bld) [#/Vol] 3.25 10*6/uL 4.2-5.4 [facility] Blood hemoglobin measurement (mass/volume)Ordered By: Dago Emery on 01-25-2023 Hemoglobin (Bld) [Mass/Vol] 11.8 g/dL 12.0-15.0 [facility] Blood lymphocytes/100 leukoc ytesOrdered By: Dago Emery on 01-25-2023 Lymphocytes/100 WBC (Bld) 24.1 % 19-41 [facility] Blood manual differential co mment interpretation (narrative result)Ordered By: Dago Emery on 01-25-2023 Manual differential comment Jack (Bld) [Interp] SCANNED [facility] Blood monocytes/100 leukocyt esOrdered By: Dago Emery on 01-25-2023 Monocytes/100 WBC (Bld) 9.8 % 0-10 [facility] Blood platelet mean volumeOr dered By: Dago Emery on 01-25-2023 Platelet mean volume (Bld) [Entitic vol] 11.2 fL 6.2-12.0 [facility] Determination of erythrocyte mean corpuscular volume (MCV)Ordered By: Dago Emery on 01-25-2023 MCV (RBC) [Entitic vol] 113.8 fL 81-99 [facility] Hematocrit Auto (Bld) [Volum e fraction]Ordered By: Dago Emery on 01-25-2023 Hematocrit (Bld) [Volume fraction] 37.0 % 37-47 [facility] Laboratory - Chemistry and C hemistry - challengeOrdered By: Dago Emery on 01-25-2023 ALP [Catalytic activity/Vol] 82 U/L 45-117 [facility] ALT [Catalytic activity/Vol] 15 U/L 13-56 [facility] CO2 [Moles/Vol] 26.0 mmol/L 21.0-32.0 [facility] Globulin (S) [Mass/Vol] 3.8 g/dL 2.2-4.2 [facility] Urea nitrogen/Creatinine [Mass ratio] 18.6 mg/mg 10-20 [facility] Laboratory - Hematology and Cell countsOrdered By: Dago Emery on 01-25-2023 Anisocytosis Ql (Bld) 2+ [facility] Erythrocyte distribution width (RBC) [Entitic vol] 65.5 fL 35.1-43.9 [facility] Erythrocyte distribution width (RBC) [Ratio] 15.7 % 11.6-14.6 [facility] Immature granulocytes/100 WBC (Bld) 0.500 % 0.0-0.9 [facility] Comment on above: IG% - Immature Granu locytes (promyelocytes, myelocytes and metamyelocytes) > 1% indicates that a LEFT SHIFT is Present. MCH (RBC) [Entitic mass] 36.3 pg 27.0-32.0 [facility] Nucleated RBC/100 WBC (Bld) [Ratio] 0 % 0-5 [facility] MCHC Auto (RBC) [Mass/Vol]Or dered By: Dago Emery on 01-25-2023 MCHC (RBC) [Mass/Vol] 31.9 g/dL 32-36 [facility] Macrocytes detectionOrdered By: Dago Emery on 01-25-2023 Macrocytes Ql (Bld) 2+ [facility] No Panel InformationOrdered By: Dago Emery on 01-25-2023 Estimated GFR (MDRD) Amer 67 mL/min >60 [facility] Comment on above: GFR Calc Estimated GFR (MDRD) Non-Af Amer 56 mL/min >60 [facility] Comment on above: Non- GFR Calc Thyroid Stimulating Hormone (TSH) 1.65 uIU/mL 0.358-3.74 [facility] Vitamin D 25-Hydroxy 39.0 ng/mL [facility] Comment on above: Vitamin D 25(OH) Sta tus Range Deficiency <20 ng/mL (50nmol/L) Insufficiency 20 - 30 ng/mL (50 - 75 nmol/L) Sufficiency 30 - 100 ng/mL (75 - 250 nmol/L) Toxicity >100 ng/mL (>250 nmol/L) Platelets bldOrdered By: Dago Emery on 01-25-2023 Platelets (Bld) [#/Vol] 265 10*3/uL 150-450 [facility] Serum or plasma albumin niels urement (mass/volume)Ordered By: Dago Emery on 01-25-2023 Albumin [Mass/Vol] 3.3 g/dL 3.2-5.0 [facility] Serum or plasma albumin/glob ulin mass ratioOrdered By: Dago Emery on 01-25-2023 Albumin/Globulin [Mass ratio] 0.9 {ratio} 0.9-2.4 [facility] Serum or plasma calcium niels urement (mass/volume)Ordered By: Dago Emery on 01-25-2023 Calcium [Mass/Vol] 9.1 mg/dL 8.5-10.1 [facility] Serum or plasma creatinine m easurement (mass/volume)Ordered By: Dago Emery on 01-25-2023 Creatinine [Mass/Vol] 1.02 mg/dL 0.55-1.02 [facility] Comment on above: The validity of the calculated GFR & GFRAA in patients over 70 years has not been determined. Clinical correlation is essential. Serum or plasma urea nitroge n measurement (mass/volume)Ordered By: Dago Emery on 01-25-2023 Urea nitrogen [Mass/Vol] 19 mg/dL 7-18 [facility] Thin prep Papanicolaou smear with manual screeningOrdered By: Dago Emery on 01-25-2023 Thin prep Papanicolaou smear with manual screening 25 U/L 15-37 [facility] Thin prep Papanicolaou smear with manual screening 7 5-15 [facility] Absolute lymphocyte countOrd ered By: Carolyn Ruvalcaba on 11-04-2022 Lymphocytes Auto (Unsp spec) [#/Vol] 1.04 10*3/uL 0.83-4.51 [facility] Basophil percentageOrdered B y: Carolyn Ruvalcaba on 11-04-2022 Basophils/100 WBC (Bld) 0.5 % 0-1 [facility] Bilirubin [Mass/Vol] 0.50 mg/dL 0.20-1.00 [facility] Comment on above: For patients on eltr ombopag therapy, use of Dimension [place] TBIL is not recommended. Chloride [Moles/Vol] 108 mmol/L 98-107 [facility] Eosinophils/100 WBC (Bld) 1.1 % 0-5 [facility] Glucose [Mass/Vol] 127 mg/dL 74-106 [facility] Comment on above: Fasting Glucose resu lt greater than or equal to 126 mg/dL suggests DIABETES MELLITUS per A.D.A. criteria. Neutrophils (Bld) [#/Vol] 4.6 10*3/uL 2.0-7.7 [facility] Neutrophils/100 WBC (Bld) 74.8 % 47-70 [facility] Potassium [Moles/Vol] 3.8 mmol/L 3.5-5.1 [facility] Protein [Mass/Vol] 7.4 g/dL 6.4-8.2 [facility] Sodium [Moles/Vol] 140 mmol/L 136-145 [facility] WBC (Bld) [#/Vol] 6.2 10*3/uL 4.4-11.0 [facility] Blood erythrocytes count (nu mber/volume)Ordered By: Carolyn Ruvalcaba on 11-04-2022 RBC (Bld) [#/Vol] 3.43 10*6/uL 4.2-5.4 [facility] Blood hemoglobin measurement (mass/volume)Ordered By: Carolyn Ruvalcaba on 11-04-2022 Hemoglobin (Bld) [Mass/Vol] 12.0 g/dL 12.0-15.0 [facility] Blood lymphocytes/100 leukoc ytesOrdered By: Carolyn Ruvalcaba on 11-04-2022 Lymphocytes/100 WBC (Bld) 16.8 % 19-41 [facility] Blood monocytes/100 leukocyt esOrdered By: Carolyn Ruvalcaba on 11-04-2022 Monocytes/100 WBC (Bld) 6.5 % 0-10 [facility] Blood platelet mean volumeOr dered By: Carolyn Ruvalcaba on 11-04-2022 Platelet mean volume (Bld) [Entitic vol] 10.0 fL 6.2-12.0 [facility] Determination of erythrocyte mean corpuscular volume (MCV)Ordered By: Carolyn Ruvalcaba on 11-04-2022 MCV (RBC) [Entitic vol] 110.5 fL 81-99 [facility] Hematocrit Auto (Bld) [Volum e fraction]Ordered By: Carolyn Ruvalcaba on 11-04-2022 Hematocrit (Bld) [Volume fraction] 37.9 % 37-47 [facility] Laboratory - Chemistry and C hemistry - challengeOrdered By: Carolyn Ruvalcaba on 11-04-2022 ALP [Catalytic activity/Vol] 89 U/L 45-117 [facility] ALT [Catalytic activity/Vol] 18 U/L 13-56 [facility] CO2 [Moles/Vol] 25.0 mmol/L 21.0-32.0 [facility] Globulin (S) [Mass/Vol] 4.1 g/dL 2.2-4.2 [facility] Urea nitrogen/Creatinine [Mass ratio] 14.8 mg/mg 10-20 [facility] Laboratory - Hematology and Cell countsOrdered By: Carolyn Ruvalcaba on 11-04-2022 Erythrocyte distribution width (RBC) [Entitic vol] 62.5 fL 35.1-43.9 [facility] Erythrocyte distribution width (RBC) [Ratio] 15.6 % 11.6-14.6 [facility] Immature granulocytes/100 WBC (Bld) 0.300 % 0.0-0.9 [facility] Comment on above: IG% - Immature Granu locytes (promyelocytes, myelocytes and metamyelocytes) > 1% indicates that a LEFT SHIFT is Present. MCH (RBC) [Entitic mass] 35.0 pg 27.0-32.0 [facility] Nucleated RBC/100 WBC (Bld) [Ratio] 0 % 0-5 [facility] MCHC Auto (RBC) [Mass/Vol]Or dered By: Carolyn Ruvalcaba on 11-04-2022 MCHC (RBC) [Mass/Vol] 31.7 g/dL 32-36 [facility] No Panel InformationOrdered By: Carolyn Ruvalcaba on 11-04-2022 Estimated Creatinine Clearance Calc 41.46 ml/min [facility] Estimated GFR (MDRD) Amer 73 mL/min >60 [facility] Comment on above: GFR Calc Estimated GFR (MDRD) Non-Af Amer 60 mL/min >60 [facility] Comment on above: Non- GFR Calc Platelets bldOrdered By: Nayan Ruvalcaba on 11-04-2022 Platelets (Bld) [#/Vol] 298 10*3/uL 150-450 [facility] Serum or plasma albumin niels urement (mass/volume)Ordered By: Carolyn Ruvalcaba on 11-04-2022 Albumin [Mass/Vol] 3.3 g/dL 3.2-5.0 [facility] Serum or plasma albumin/glob ulin mass ratioOrdered By: Carolyn Ruvalcaba on 11-04-2022 Albumin/Globulin [Mass ratio] 0.8 {ratio} 0.9-2.4 [facility] Serum or plasma calcium niels urement (mass/volume)Ordered By: Carolyn Ruvalcaba on 11-04-2022 Calcium [Mass/Vol] 9.2 mg/dL 8.5-10.1 [facility] Serum or plasma creatinine m easurement (mass/volume)Ordered By: Carolyn Ruvalcaba on 11-04-2022 Creatinine [Mass/Vol] 0.95 mg/dL 0.55-1.02 [facility] Comment on above: The validity of the calculated GFR & GFRAA in patients over 70 years has not been determined. Clinical correlation is essential. Serum or plasma urea nitroge n measurement (mass/volume)Ordered By: Carolyn Ruvalcaba on 11-04-2022 Urea nitrogen [Mass/Vol] 14 mg/dL 7-18 [facility] Thin prep Papanicolaou smear with manual screeningOrdered By: [facility] on 11-04-2022 Thin prep Papanicolaou smear with manual screening 19 U/L 15-37 [facility] Thin prep Papanicolaou smear with manual screening 7 5-15 [facility] Absolute lymphocyte countOrd ered By: Dago Emery on 10-10-2022 Lymphocytes Auto (Unsp spec) [#/Vol] 1.27 10*3/uL 0.83-4.51 [facility] Basophil percentageOrdered B y: Dago Emery on 10-10-2022 Basophils/100 WBC (Bld) 0.4 % 0-1 [facility] Eosinophils/100 WBC (Bld) 5.2 % 0-5 [facility] Neutrophils (Bld) [#/Vol] 3.2 10*3/uL 2.0-7.7 [facility] Neutrophils/100 WBC (Bld) 61.5 % 47-70 [facility] WBC (Bld) [#/Vol] 5.2 10*3/uL 4.4-11.0 [facility] Chloride [Moles/Vol] 109 mmol/L 98-107 [facility] Glucose [Mass/Vol] 101 mg/dL 74-106 [facility] Comment on above: Fasting Glucose resu lt from 100 to 125 mg/dL suggests IMPAIRED HOMEOSTASIS per A.D.A. criteria. Potassium [Moles/Vol] 3.9 mmol/L 3.5-5.1 [facility] Sodium [Moles/Vol] 138 mmol/L 136-145 [facility] Blood erythrocytes count (nu mber/volume)Ordered By: Dago Emery on 10-10-2022 RBC (Bld) [#/Vol] 2.93 10*6/uL 4.2-5.4 [facility] Blood hemoglobin measurement (mass/volume)Ordered By: Dago Emery on 10-10-2022 Hemoglobin (Bld) [Mass/Vol] 10.5 g/dL 12.0-15.0 [facility] Blood lymphocytes/100 leukoc ytesOrdered By: Dago Emery on 10-10-2022 Lymphocytes/100 WBC (Bld) 24.4 % 19-41 [facility] Blood monocytes/100 leukocyt esOrdered By: Dago Emery on 10-10-2022 Monocytes/100 WBC (Bld) 8.1 % 0-10 [facility] Blood platelet mean volumeOr dered By: Dago Emery on 10-10-2022 Platelet mean volume (Bld) [Entitic vol] 10.3 fL 6.2-12.0 [facility] Determination of erythrocyte mean corpuscular volume (MCV)Ordered By: Dago Emery on 10-10-2022 MCV (RBC) [Entitic vol] 109.6 fL 81-99 [facility] Hematocrit Auto (Bld) [Volum e fraction]Ordered By: Dago Emery 10-10-2022 Hematocrit (Bld) [Volume fraction] 32.1 % 37-47 [facility] Laboratory - Chemistry and C hemistry - challengeOrdered By: Dago Emery 10-10-2022 CO2 [Moles/Vol] 24.0 mmol/L 21.0-32.0 [facility] Urea nitrogen/Creatinine [Mass ratio] 24.1 mg/mg 10-20 [facility] Laboratory - Hematology and Cell countsOrdered By: Dago Emery 10-10-2022 Erythrocyte distribution width (RBC) [Entitic vol] 54.4 fL 35.1-43.9 [facility] Erythrocyte distribution width (RBC) [Ratio] 13.9 % 11.6-14.6 [facility] Immature granulocytes/100 WBC (Bld) 0.400 % 0.0-0.9 [facility] Comment on above: IG% - Immature Granu locytes (promyelocytes, myelocytes and metamyelocytes) > 1% indicates that a LEFT SHIFT is Present. MCH (RBC) [Entitic mass] 35.8 pg 27.0-32.0 [facility] Nucleated RBC/100 WBC (Bld) [Ratio] 0 % 0-5 [facility] MCHC Auto (RBC) [Mass/Vol]Or dered By: Dago Emery on 10-10-2022 MCHC (RBC) [Mass/Vol] 32.7 g/dL 32-36 [facility] No Panel InformationOrdered By: Dago Emery on 10-10-2022 Estimated Creatinine Clearance Calc 41.05 ml/min [facility] Estimated GFR (MDRD) Amer 69 mL/min >60 [facility] Comment on above: GFR Calc Estimated GFR (MDRD) Non-Af Amer 57 mL/min >60 [facility] Comment on above: Non- GFR Calc Platelets bldOrdered By: Dago Emery on 10-10-2022 Platelets (Bld) [#/Vol] 409 10*3/uL 150-450 [facility] Serum or plasma calcium niels urement (mass/volume)Ordered By: Dago Emery on 10-10-2022 Calcium [Mass/Vol] 8.7 mg/dL 8.5-10.1 [facility] Serum or plasma creatinine m easurement (mass/volume)Ordered By: Dago Emery on 10-10-2022 Creatinine [Mass/Vol] 1.00 mg/dL 0.55-1.02 [facility] Comment on above: The validity of the calculated GFR & GFRAA in patients over 70 years has not been determined. Clinical correlation is essential. Serum or plasma urea nitroge n measurement (mass/volume)Ordered By: Dago Emery on 10-10-2022 Urea nitrogen [Mass/Vol] 24 mg/dL 7-18 [facility] Thin prep Papanicolaou smear with manual screeningOrdered By: Dago Emery 10-10-2022 Thin prep Papanicolaou smear with manual screening 5 5-15 [facility] Absolute lymphocyte countOrd ered By: Dr. Pate on 08-05-2022 Lymphocytes Auto (Unsp spec) [#/Vol] 1.00 10*3/uL 0.83-4.51 [facility] Basophil percentageOrdered B y: Dr. Pate on 08-05-2022 Basophils/100 WBC (Bld) 0.6 % 0-1 [facility] Chloride [Moles/Vol] 111 mmol/L 98-107 [facility] Eosinophils/100 WBC (Bld) 2.5 % 0-5 [facility] Glucose [Mass/Vol] 116 mg/dL 74-106 [facility] Comment on above: Fasting Glucose resu lt from 100 to 125 mg/dL suggests IMPAIRED HOMEOSTASIS per A.D.A. criteria. Neutrophils (Bld) [#/Vol] 3.5 10*3/uL 2.0-7.7 [facility] Neutrophils/100 WBC (Bld) 67.0 % 47-70 [facility] Potassium [Moles/Vol] 3.9 mmol/L 3.5-5.1 [facility] Comment on above: Slight Hemolysis, Re sult may be falsely increased. Sodium [Moles/Vol] 141 mmol/L 136-145 [facility] WBC (Bld) [#/Vol] 5.3 10*3/uL 4.4-11.0 [facility] Blood erythrocytes count (nu mber/volume)Ordered By: Dr. Pate on 08-05-2022 RBC (Bld) [#/Vol] 3.36 10*6/uL 4.2-5.4 [facility] Blood hemoglobin measurement (mass/volume)Ordered By: Dr. Pate on 08-05-2022 Hemoglobin (Bld) [Mass/Vol] 12.4 g/dL 12.0-15.0 [facility] Blood lymphocytes/100 leukoc ytesOrdered By: Dr. Pate on 08-05-2022 Lymphocytes/100 WBC (Bld) 18.9 % 19-41 [facility] Blood monocytes/100 leukocyt esOrdered By: Dr. Pate on 08-05-2022 Monocytes/100 WBC (Bld) 10.2 % 0-10 [facility] Blood platelet mean volumeOr dered By: Dr. Pate on 08-05-2022 Platelet mean volume (Bld) [Entitic vol] 10.6 fL 6.2-12.0 [facility] Determination of erythrocyte mean corpuscular volume (MCV)Ordered By: Dr. Pate on 08-05-2022 MCV (RBC) [Entitic vol] 114.6 fL 81-99 [facility] Hematocrit Auto (Bld) [Volum e fraction]Ordered By: Dr. Pate on 08-05-2022 Hematocrit (Bld) [Volume fraction] 38.5 % 37-47 [facility] Laboratory - Chemistry and C hemistry - challengeOrdered By: Dr. Pate on 08-05-2022 CO2 [Moles/Vol] 24.0 mmol/L 21.0-32.0 [facility] Urea nitrogen/Creatinine [Mass ratio] 23.1 mg/mg 10-20 [facility] Laboratory - Hematology and Cell countsOrdered By: Dr. Pate on 08-05-2022 Erythrocyte distribution width (RBC) [Entitic vol] 59.2 fL 35.1-43.9 [facility] Erythrocyte distribution width (RBC) [Ratio] 14.0 % 11.6-14.6 [facility] Immature granulocytes/100 WBC (Bld) 0.800 % 0.0-0.9 [facility] Comment on above: IG% - Immature Granu locytes (promyelocytes, myelocytes and metamyelocytes) > 1% indicates that a LEFT SHIFT is Present. MCH (RBC) [Entitic mass] 36.9 pg 27.0-32.0 [facility] Nucleated RBC/100 WBC (Bld) [Ratio] 0 % 0-5 [facility] MCHC Auto (RBC) [Mass/Vol]Or dered By: Dr. Pate on 08-05-2022 MCHC (RBC) [Mass/Vol] 32.2 g/dL 32-36 [facility] No Panel InformationOrdered By: Dr. Pate on 08-05-2022 Estimated Creatinine Clearance Calc 37.88 ml/min [facility] Estimated GFR (MDRD) Amer 66 mL/min >60 [facility] Comment on above: GFR Calc Estimated GFR (MDRD) Non-Af Amer 54 mL/min >60 [facility] Comment on above: Non- GFR Calc Platelets bldOrdered By: Dr. Pate on 08-05-2022 Platelets (Bld) [#/Vol] 327 10*3/uL 150-450 [facility] Serum or plasma albumin niels urement (mass/volume)Ordered By: Dr. Pate on 08-05-2022 Albumin [Mass/Vol] 3.3 g/dL 3.2-5.0 [facility] Serum or plasma calcium niels urement (mass/volume)Ordered By: Dr. Pate on 08-05-2022 Calcium [Mass/Vol] 8.9 mg/dL 8.5-10.1 [facility] Serum or plasma creatinine m easurement (mass/volume)Ordered By: Dr. Pate on 08-05-2022 Creatinine [Mass/Vol] 1.04 mg/dL 0.55-1.02 [facility] Comment on above: The validity of the calculated GFR & GFRAA in patients over 70 years has not been determined. Clinical correlation is essential. Serum or plasma urea nitroge n measurement (mass/volume)Ordered By: Dr. Pate on 08-05-2022 Urea nitrogen [Mass/Vol] 24 mg/dL 7-18 [facility] Thin prep Papanicolaou smear with manual screeningOrdered By: Dr. Pate on 08-05-2022 Thin prep Papanicolaou smear with manual screening 6 5-15 [facility] Absolute lymphocyte countOrd ered By: Dr. Pate on 07-20-2022 Lymphocytes Auto (Unsp spec) [#/Vol] 1.03 10*3/uL 0.83-4.51 [facility] Basophil percentageOrdered B y: Dr. Pate on 07-20-2022 Basophils/100 WBC (Bld) 0.3 % 0-1 [facility] Bilirubin [Mass/Vol] 0.40 mg/dL 0.20-1.00 [facility] Comment on above: For patients on eltr ombopag therapy, use of Dimension [place] TBIL is not recommended. Chloride [Moles/Vol] 107 mmol/L 98-107 [facility] Eosinophils/100 WBC (Bld) 2.4 % 0-5 [facility] Glucose [Mass/Vol] 109 mg/dL 74-106 [facility] Comment on above: Fasting Glucose resu lt from 100 to 125 mg/dL suggests IMPAIRED HOMEOSTASIS per A.D.A. criteria. Neutrophils (Bld) [#/Vol] 4.0 10*3/uL 2.0-7.7 [facility] Neutrophils/100 WBC (Bld) 68.9 % 47-70 [facility] Potassium [Moles/Vol] 4.0 mmol/L 3.5-5.1 [facility] Protein [Mass/Vol] 7.2 g/dL 6.4-8.2 [facility] Sodium [Moles/Vol] 140 mmol/L 136-145 [facility] WBC (Bld) [#/Vol] 5.8 10*3/uL 4.4-11.0 [facility] Blood erythrocytes count (nu mber/volume)Ordered By: Dr. Pate on 07-20-2022 RBC (Bld) [#/Vol] 3.25 10*6/uL 4.2-5.4 [facility] Blood hemoglobin measurement (mass/volume)Ordered By: Dr. Pate on 07-20-2022 Hemoglobin (Bld) [Mass/Vol] 12.2 g/dL 12.0-15.0 [facility] Blood lymphocytes/100 leukoc ytesOrdered By: Dr. Pate on 07-20-2022 Lymphocytes/100 WBC (Bld) 17.7 % 19-41 [facility] Blood monocytes/100 leukocyt esOrdered By: Dr. Pate on 07-20-2022 Monocytes/100 WBC (Bld) 10.2 % 0-10 [facility] Blood platelet mean volumeOr dered By: Dr. Pate on 07-20-2022 Platelet mean volume (Bld) [Entitic vol] 11.0 fL 6.2-12.0 [facility] Determination of erythrocyte mean corpuscular volume (MCV)Ordered By: Dr. Pate on 07-20-2022 MCV (RBC) [Entitic vol] 115.1 fL 81-99 [facility] Hematocrit Auto (Bld) [Volum e fraction]Ordered By: Dr. Pate on 07-20-2022 Hematocrit (Bld) [Volume fraction] 37.4 % 37-47 [facility] Laboratory - Chemistry and C hemistry - challengeOrdered By: Dr. Pate on 07-20-2022 ALP [Catalytic activity/Vol] 89 U/L 45-117 [facility] ALT [Catalytic activity/Vol] 26 U/L 13-56 [facility] CO2 [Moles/Vol] 25.0 mmol/L 21.0-32.0 [facility] Globulin (S) [Mass/Vol] 3.9 g/dL 2.2-4.2 [facility] Urea nitrogen/Creatinine [Mass ratio] 18.1 mg/mg 10-20 [facility] Laboratory - Hematology and Cell countsOrdered By: Dr. Pate on 07-20-2022 Erythrocyte distribution width (RBC) [Entitic vol] 63.6 fL 35.1-43.9 [facility] Erythrocyte distribution width (RBC) [Ratio] 15.0 % 11.6-14.6 [facility] Immature granulocytes/100 WBC (Bld) 0.500 % 0.0-0.9 [facility] Comment on above: IG% - Immature Granu locytes (promyelocytes, myelocytes and metamyelocytes) > 1% indicates that a LEFT SHIFT is Present. MCH (RBC) [Entitic mass] 37.5 pg 27.0-32.0 [facility] Nucleated RBC/100 WBC (Bld) [Ratio] 0 % 0-5 [facility] MCHC Auto (RBC) [Mass/Vol]Or dered By: Dr. Pate on 07-20-2022 MCHC (RBC) [Mass/Vol] 32.6 g/dL 32-36 [facility] No Panel InformationOrdered By: Dr. Pate on 07-20-2022 Estimated GFR (MDRD) Amer 58 mL/min >60 [facility] Comment on above: GFR Calc Estimated GFR (MDRD) Non-Af Amer 48 mL/min >60 [facility] Comment on above: Non- GFR Calc Thyroid Stimulating Hormone (TSH) 1.57 uIU/mL 0.358-3.74 [facility] Vitamin D 25-Hydroxy 32.7 ng/mL [facility] Comment on above: Vitamin D 25(OH) Sta tus Range Deficiency <20 ng/mL (50nmol/L) Insufficiency 20 - 30 ng/mL (50 - 75 nmol/L) Sufficiency 30 - 100 ng/mL (75 - 250 nmol/L) Toxicity >100 ng/mL (>250 nmol/L) Platelets bldOrdered By: Dr. Pate on 07-20-2022 Platelets (Bld) [#/Vol] 262 10*3/uL 150-450 [facility] Serum or plasma albumin niels urement (mass/volume)Ordered By: Dr. Pate on 07-20-2022 Albumin [Mass/Vol] 3.3 g/dL 3.2-5.0 [facility] Serum or plasma albumin/glob ulin mass ratioOrdered By: Dr. Pate on 07-20-2022 Albumin/Globulin [Mass ratio] 0.8 {ratio} 0.9-2.4 [facility] Serum or plasma calcium niels urement (mass/volume)Ordered By: Dr. Pate on 07-20-2022 Calcium [Mass/Vol] 8.9 mg/dL 8.5-10.1 [facility] Serum or plasma creatinine m easurement (mass/volume)Ordered By: Dr. Pate on 07-20-2022 Creatinine [Mass/Vol] 1.16 mg/dL 0.55-1.02 [facility] Comment on above: The validity of the calculated GFR & GFRAA in patients over 70 years has not been determined. Clinical correlation is essential. Serum or plasma urea nitroge n measurement (mass/volume)Ordered By: Dr. Pate on 07-20-2022 Urea nitrogen [Mass/Vol] 21 mg/dL 7-18 [facility] Thin prep Papanicolaou smear with manual screeningOrdered By: Dr. Pate on 07-20-2022 Thin prep Papanicolaou smear with manual screening 28 U/L 15-37 [facility] Thin prep Papanicolaou smear with manual screening 8 5-15 [facility] Absolute lymphocyte countOrd ered By: Dr. Pate on 05-06-2022 Lymphocytes Auto (Unsp spec) [#/Vol] 1.13 10*3/uL 0.83-4.51 [facility] Basophil percentageOrdered B y: Dr. Pate on 05-06-2022 Basophils/100 WBC (Bld) 0.2 % 0-1 [facility] Bilirubin [Mass/Vol] 0.40 mg/dL 0.20-1.00 [facility] Comment on above: For patients on eltr ombopag therapy, use of Dimension [place] TBIL is not recommended. Chloride [Moles/Vol] 106 mmol/L 98-107 [facility] Eosinophils/100 WBC (Bld) 1.0 % 0-5 [facility] Glucose [Mass/Vol] 133 mg/dL 74-106 [facility] Comment on above: Fasting Glucose resu lt greater than or equal to 126 mg/dL suggests DIABETES MELLITUS per A.D.A. criteria. Neutrophils (Bld) [#/Vol] 2.5 10*3/uL 2.0-7.7 [facility] Neutrophils/100 WBC (Bld) 60.9 % 47-70 [facility] Potassium [Moles/Vol] 3.4 mmol/L 3.5-5.1 [facility] Protein [Mass/Vol] 7.2 g/dL 6.4-8.2 [facility] Sodium [Moles/Vol] 140 mmol/L 136-145 [facility] WBC (Bld) [#/Vol] 4.1 10*3/uL 4.4-11.0 [facility] Blood erythrocytes count (nu mber/volume)Ordered By: Dr. Pate on 05-06-2022 RBC (Bld) [#/Vol] 3.32 10*6/uL 4.2-5.4 [facility] Blood hemoglobin measurement (mass/volume)Ordered By: Dr. Pate on 05-06-2022 Hemoglobin (Bld) [Mass/Vol] 12.4 g/dL 12.0-15.0 [facility] Blood lymphocytes/100 leukoc ytesOrdered By: Dr. Pate on 05-06-2022 Lymphocytes/100 WBC (Bld) 27.5 % 19-41 [facility] Blood monocytes/100 leukocyt esOrdered By: Dr. Pate on 05-06-2022 Monocytes/100 WBC (Bld) 9.7 % 0-10 [facility] Blood platelet mean volumeOr dered By: Dr. Pate on 05-06-2022 Platelet mean volume (Bld) [Entitic vol] 10.6 fL 6.2-12.0 [facility] Determination of erythrocyte mean corpuscular volume (MCV)Ordered By: Dr. Pate on 05-06-2022 MCV (RBC) [Entitic vol] 112.0 fL 81-99 [facility] Hematocrit Auto (Bld) [Volum e fraction]Ordered By: Dr. Pate on 05-06-2022 Hematocrit (Bld) [Volume fraction] 37.2 % 37-47 [facility] Laboratory - Chemistry and C hemistry - challengeOrdered By: Dr. Pate on 05-06-2022 ALP [Catalytic activity/Vol] 75 U/L 45-117 [facility] ALT [Catalytic activity/Vol] 17 U/L 13-56 [facility] CO2 [Moles/Vol] 27.0 mmol/L 21.0-32.0 [facility] Globulin (S) [Mass/Vol] 3.8 g/dL 2.2-4.2 [facility] Urea nitrogen/Creatinine [Mass ratio] 20.2 mg/mg 10-20 [facility] Laboratory - Hematology and Cell countsOrdered By: Dr. Pate on 05-06-2022 Erythrocyte distribution width (RBC) [Entitic vol] 62.5 fL 35.1-43.9 [facility] Erythrocyte distribution width (RBC) [Ratio] 15.3 % 11.6-14.6 [facility] Immature granulocytes/100 WBC (Bld) 0.700 % 0.0-0.9 [facility] Comment on above: IG% - Immature Granu locytes (promyelocytes, myelocytes and metamyelocytes) > 1% indicates that a LEFT SHIFT is Present. MCH (RBC) [Entitic mass] 37.3 pg 27.0-32.0 [facility] Nucleated RBC/100 WBC (Bld) [Ratio] 0 % 0-5 [facility] MCHC Auto (RBC) [Mass/Vol]Or dered By: Dr. Pate on 05-06-2022 MCHC (RBC) [Mass/Vol] 33.3 g/dL 32-36 [facility] No Panel InformationOrdered By: Dr. Pate on 05-06-2022 Estimated Creatinine Clearance Calc 36.73 ml/min [facility] Estimated GFR (MDRD) Amer 62 mL/min >60 [facility] Comment on above: GFR Calc Estimated GFR (MDRD) Non-Af Amer 52 mL/min >60 [facility] Comment on above: Non- GFR Calc Platelets bldOrdered By: Dr. Pate on 05-06-2022 Platelets (Bld) [#/Vol] 239 10*3/uL 150-450 [facility] Serum or plasma albumin niels urement (mass/volume)Ordered By: Dr. Pate on 05-06-2022 Albumin [Mass/Vol] 3.4 g/dL 3.2-5.0 [facility] Serum or plasma albumin/glob ulin mass ratioOrdered By: Dr. Pate on 05-06-2022 Albumin/Globulin [Mass ratio] 0.9 {ratio} 0.9-2.4 [facility] Serum or plasma calcium niels urement (mass/volume)Ordered By: Dr. Pate on 05-06-2022 Calcium [Mass/Vol] 8.9 mg/dL 8.5-10.1 [facility] Serum or plasma creatinine m easurement (mass/volume)Ordered By: Dr. Pate on 05-06-2022 Creatinine [Mass/Vol] 1.09 mg/dL 0.55-1.02 [facility] Comment on above: The validity of the calculated GFR & GFRAA in patients over 70 years has not been determined. Clinical correlation is essential. Serum or plasma urea nitroge n measurement (mass/volume)Ordered By: Dr. Pate on 05-06-2022 Urea nitrogen [Mass/Vol] 22 mg/dL 7-18 [facility] Thin prep Papanicolaou smear with manual screeningOrdered By: Dr. Pate on 05-06-2022 Thin prep Papanicolaou smear with manual screening 22 U/L 15- [facility] Thin prep Papanicolaou smear with manual screening 7 5-15 [facility] Absolute lymphocyte countOrd ered By: Dr. Pate on 02-04-2022 Lymphocytes Auto (Unsp spec) [#/Vol] 1.02 10*3/uL 0.83-4.51 [facility] Basophil percentageOrdered B y: Dr. Pate on 02-04-2022 Basophils/100 WBC (Bld) 0.5 % 0-1 [facility] Bilirubin [Mass/Vol] 0.50 mg/dL 0.20-1.00 [facility] Comment on above: For patients on eltr ombopag therapy, use of Dimension [place] TBIL is not recommended. Chloride [Moles/Vol] 106 mmol/L 98-107 [facility] Eosinophils/100 WBC (Bld) 0.5 % 0-5 [facility] Glucose [Mass/Vol] 117 mg/dL 74-106 [facility] Comment on above: Fasting Glucose resu lt from 100 to 125 mg/dL suggests IMPAIRED HOMEOSTASIS per A.D.A. criteria. Neutrophils (Bld) [#/Vol] 2.9 10*3/uL 2.0-7.7 [facility] Neutrophils/100 WBC (Bld) 65.2 % 47-70 [facility] Potassium [Moles/Vol] 4.2 mmol/L 3.5-5.1 [facility] Comment on above: Slight Hemolysis, Re sult may be falsely increased. Protein [Mass/Vol] 7.7 g/dL 6.4-8.2 [facility] Sodium [Moles/Vol] 141 mmol/L 136-145 [facility] WBC (Bld) [#/Vol] 4.4 10*3/uL 4.4-11.0 [facility] Blood erythrocytes count (nu mber/volume)Ordered By: Dr. Pate on 02-04-2022 RBC (Bld) [#/Vol] 3.63 10*6/uL 4.2-5.4 [facility] Blood hemoglobin measurement (mass/volume)Ordered By: Dr. Pate on 02-04-2022 Hemoglobin (Bld) [Mass/Vol] 13.2 g/dL 12.0-15.0 [facility] Blood lymphocytes/100 leukoc ytesOrdered By: Dr. Pate on 02-04-2022 Lymphocytes/100 WBC (Bld) 23.3 % 19-41 [facility] Blood monocytes/100 leukocyt esOrdered By: Dr. Pate on 02-04-2022 Monocytes/100 WBC (Bld) 9.8 % 0-10 [facility] Blood platelet mean volumeOr dered By: Dr. Pate on 02-04-2022 Platelet mean volume (Bld) [Entitic vol] 10.4 fL 6.2-12.0 [facility] Determination of erythrocyte mean corpuscular volume (MCV)Ordered By: Dr. Pate on 02-04-2022 MCV (RBC) [Entitic vol] 111.0 fL 81-99 [facility] Hematocrit Auto (Bld) [Volum e fraction]Ordered By: Dr. Pate on 02-04-2022 Hematocrit (Bld) [Volume fraction] 40.3 % 37-47 [facility] Laboratory - Chemistry and C hemistry - challengeOrdered By: Dr. Pate on 02-04-2022 ALP [Catalytic activity/Vol] 82 U/L 45-117 [facility] ALT [Catalytic activity/Vol] 23 U/L 13-56 [facility] CO2 [Moles/Vol] 28.0 mmol/L 21.0-32.0 [facility] Globulin (S) [Mass/Vol] 4.3 g/dL 2.2-4.2 [facility] Urea nitrogen/Creatinine [Mass ratio] 16.0 mg/mg 10-20 [facility] Laboratory - Hematology and Cell countsOrdered By: Dr. Pate on 02-04-2022 Erythrocyte distribution width (RBC) [Entitic vol] 63.5 fL 35.1-43.9 [facility] Erythrocyte distribution width (RBC) [Ratio] 15.6 % 11.6-14.6 [facility] Immature granulocytes/100 WBC (Bld) 0.700 % 0.0-0.9 [facility] Comment on above: IG% - Immature Granu locytes (promyelocytes, myelocytes and metamyelocytes) > 1% indicates that a LEFT SHIFT is Present. MCH (RBC) [Entitic mass] 36.4 pg 27.0-32.0 [facility] Nucleated RBC/100 WBC (Bld) [Ratio] 0 % 0-5 [facility] MCHC Auto (RBC) [Mass/Vol]Or dered By: Dr. Pate on 02-04-2022 MCHC (RBC) [Mass/Vol] 32.8 g/dL 32-36 [facility] No Panel InformationOrdered By: Dr. Pate on 02-04-2022 Estimated Creatinine Clearance Calc 37.77 ml/min [facility] Estimated GFR (MDRD) Amer 64 mL/min >60 [facility] Comment on above: GFR Calc Estimated GFR (MDRD) Non-Af Amer 53 mL/min >60 [facility] Comment on above: Non- GFR Calc Platelets bldOrdered By: Dr. Pate on 02-04-2022 Platelets (Bld) [#/Vol] 300 10*3/uL 150-450 [facility] Serum or plasma albumin niels urement (mass/volume)Ordered By: Dr. Pate on 02-04-2022 Albumin [Mass/Vol] 3.4 g/dL 3.2-5.0 [facility] Serum or plasma albumin/glob ulin mass ratioOrdered By: Dr. Pate on 02-04-2022 Albumin/Globulin [Mass ratio] 0.8 {ratio} 0.9-2.4 [facility] Serum or plasma calcium niels urement (mass/volume)Ordered By: Dr. Pate on 02-04-2022 Calcium [Mass/Vol] 9.4 mg/dL 8.5-10.1 [facility] Serum or plasma creatinine m easurement (mass/volume)Ordered By: Dr. Pate on 02-04-2022 Creatinine [Mass/Vol] 1.06 mg/dL 0.55-1.02 [facility] Comment on above: The validity of the calculated GFR & GFRAA in patients over 70 years has not been determined. Clinical correlation is essential. Serum or plasma urea nitroge n measurement (mass/volume)Ordered By: Dr. aPte on 02-04-2022 Urea nitrogen [Mass/Vol] 17 mg/dL 7-18 [facility] Thin prep Papanicolaou smear with manual screeningOrdered By: Dr. Pate on 02-04-2022 Thin prep Papanicolaou smear with manual screening 25 U/L 15-37 [facility] Comment on above: Slight Hemolysis, Re sult may be falsely increased. Thin prep Papanicolaou smear with manual screening 7 5-15 [facility] Absolute lymphocyte countOrd ered By: Dr. Emery on 01-19-2022 Lymphocytes Auto (Unsp spec) [#/Vol] 1.06 10*3/uL 0.83-4.51 [facility] Basophil percentageOrdered B y: Dr. Emery on 01-19-2022 Basophils/100 WBC (Bld) 0.4 % 0-1 [facility] Bilirubin [Mass/Vol] 0.50 mg/dL 0.20-1.00 [facility] Comment on above: For patients on eltr ombopag therapy, use of Dimension [place] TBIL is not recommended. Chloride [Moles/Vol] 106 mmol/L 98-107 [facility] Eosinophils/100 WBC (Bld) 1.1 % 0-5 [facility] Glucose [Mass/Vol] 122 mg/dL 74-106 [facility] Comment on above: Fasting Glucose resu lt from 100 to 125 mg/dL suggests IMPAIRED HOMEOSTASIS per A.D.A. criteria. Neutrophils (Bld) [#/Vol] 4.0 10*3/uL 2.0-7.7 [facility] Neutrophils/100 WBC (Bld) 70.3 % 47-70 [facility] Potassium [Moles/Vol] 3.8 mmol/L 3.5-5.1 [facility] Comment on above: Slight Hemolysis, Re sult may be falsely increased. Protein [Mass/Vol] 7.3 g/dL 6.4-8.2 [facility] Sodium [Moles/Vol] 140 mmol/L 136-145 [facility] WBC (Bld) [#/Vol] 5.6 10*3/uL 4.4-11.0 [facility] Blood erythrocytes count (nu mber/volume)Ordered By: Dr. Emery on 01-19-2022 RBC (Bld) [#/Vol] 3.58 10*6/uL 4.2-5.4 [facility] Blood hemoglobin measurement (mass/volume)Ordered By: Dr. Emery on 01-19-2022 Hemoglobin (Bld) [Mass/Vol] 13.5 g/dL 12.0-15.0 [facility] Blood lymphocytes/100 leukoc ytesOrdered By: Dr. Emery on 01-19-2022 Lymphocytes/100 WBC (Bld) 18.9 % 19-41 [facility] Blood monocytes/100 leukocyt esOrdered By: Dr. Emery on 01-19-2022 Monocytes/100 WBC (Bld) 8.9 % 0-10 [facility] Blood platelet mean volumeOr dered By: Dr. Emery on 01-19-2022 Platelet mean volume (Bld) [Entitic vol] 10.4 fL 6.2-12.0 [facility] Determination of erythrocyte mean corpuscular volume (MCV)Ordered By: Dr. Emery on 01-19-2022 MCV (RBC) [Entitic vol] 110.1 fL 81-99 [facility] Hematocrit Auto (Bld) [Volum e fraction]Ordered By: Dr. Emery on 01-19-2022 Hematocrit (Bld) [Volume fraction] 39.4 % 37-47 [facility] Laboratory - Chemistry and C hemistry - challengeOrdered By: Dr. Emery on 01-19-2022 ALP [Catalytic activity/Vol] 87 U/L 45-117 [facility] ALT [Catalytic activity/Vol] 21 U/L 13-56 [facility] CO2 [Moles/Vol] 27.0 mmol/L 21.0-32.0 [facility] Globulin (S) [Mass/Vol] 4.0 g/dL 2.2-4.2 [facility] Urea nitrogen/Creatinine [Mass ratio] 16.0 mg/mg 10-20 [facility] Laboratory - Hematology and Cell countsOrdered By: Dr. Emery on 01-19-2022 Erythrocyte distribution width (RBC) [Entitic vol] 61.0 fL 35.1-43.9 [facility] Erythrocyte distribution width (RBC) [Ratio] 15.3 % 11.6-14.6 [facility] Immature granulocytes/100 WBC (Bld) 0.400 % 0.0-0.9 [facility] Comment on above: IG% - Immature Granu locytes (promyelocytes, myelocytes and metamyelocytes) > 1% indicates that a LEFT SHIFT is Present. MCH (RBC) [Entitic mass] 37.7 pg 27.0-32.0 [facility] Nucleated RBC/100 WBC (Bld) [Ratio] 0 % 0-5 [facility] MCHC Auto (RBC) [Mass/Vol]Or dered By: Dr. Emery on 01-19-2022 MCHC (RBC) [Mass/Vol] 34.3 g/dL 32-36 [facility] No Panel InformationOrdered By: Dr. Emery on 01-19-2022 Estimated GFR (MDRD) Amer 64 mL/min >60 [facility] Comment on above: GFR Calc Estimated GFR (MDRD) Non-Af Amer 53 mL/min >60 [facility] Comment on above: Non- GFR Calc Thyroid Stimulating Hormone (TSH) 1.77 uIU/mL 0.358-3.74 [facility] Vitamin D 25-Hydroxy 28.7 ng/mL [facility] Comment on above: Vitamin D 25(OH) Sta tus Range Deficiency <20 ng/mL (50nmol/L) Insufficiency 20 - 30 ng/mL (50 - 75 nmol/L) Sufficiency 30 - 100 ng/mL (75 - 250 nmol/L) Toxicity >100 ng/mL (>250 nmol/L) Platelets bldOrdered By: Dr. Emery on 01-19-2022 Platelets (Bld) [#/Vol] 258 10*3/uL 150-450 [facility] Serum or plasma albumin niels urement (mass/volume)Ordered By: Dr. Emery on 01-19-2022 Albumin [Mass/Vol] 3.3 g/dL 3.2-5.0 [facility] Serum or plasma albumin/glob ulin mass ratioOrdered By: Dr. Emery on 01-19-2022 Albumin/Globulin [Mass ratio] 0.8 {ratio} 0.9-2.4 [facility] Serum or plasma calcium niels urement (mass/volume)Ordered By: Dr. Emery on 01-19-2022 Calcium [Mass/Vol] 9.2 mg/dL 8.5-10.1 [facility] Serum or plasma creatinine m easurement (mass/volume)Ordered By: Dr. Emery on 01-19-2022 Creatinine [Mass/Vol] 1.06 mg/dL 0.55-1.02 [facility] Comment on above: The validity of the calculated GFR & GFRAA in patients over 70 years has not been determined. Clinical correlation is essential. Serum or plasma urea nitroge n measurement (mass/volume)Ordered By: Dr. Emery on 01-19-2022 Urea nitrogen [Mass/Vol] 17 mg/dL 7- [facility] Thin prep Papanicolaou smear with manual screeningOrdered By: Dr. Emery on 01-19-2022 Thin prep Papanicolaou smear with manual screening 24 U/L 15- [facility] Comment on above: Slight Hemolysis, Re sult may be falsely increased. Thin prep Papanicolaou smear with manual screening 7 - [facility] Absolute lymphocyte counton 11-04-2021 Lymphocytes Auto (Unsp spec) [#/Vol] 1.00 10*3/uL 0.83-4.51 [facility] Work Phone: Basophil percentageon 2021 Basophils/100 WBC (Bld) 0.3 % 0-1 [facility] Work Phone: Bilirubin [Mass/Vol] 0.50 mg/dL 0.20-1.00 [facility] Work Phone: Comment on above: For patients on eltr ombopag therapy, use of Dimension [place] TBIL is not recommended. Chloride [Moles/Vol] 109 mmol/L 98-107 [facility] Work Phone: Eosinophils/100 WBC (Bld) 1.0 % 0-5 [facility] Work Phone: Glucose [Mass/Vol] 126 mg/dL 74-106 [facility] Work Phone: Comment on above: Fasting Glucose resu lt greater than or equal to 126 mg/dL suggests DIABETES MELLITUS per A.D.A. criteria. Neutrophils (Bld) [#/Vol] 4.5 10*3/uL 2.0-7.7 [facility] Work Phone: Neutrophils/100 WBC (Bld) 75.0 % 47-70 [facility] Work Phone: Potassium [Moles/Vol] 3.7 mmol/L 3.5-5.1 [facility] Work Phone: Comment on above: Slight Hemolysis, Re sult may be falsely increased. Protein [Mass/Vol] 7.5 g/dL 6.4-8.2 [facility] Work Phone: Sodium [Moles/Vol] 141 mmol/L 136-145 [facility] Work Phone: WBC (Bld) [#/Vol] 6.0 10*3/uL 4.4-11.0 [facility] Work Phone: Blood erythrocytes count (nu mber/volume)on 11-04-2021 RBC (Bld) [#/Vol] 3.60 10*6/uL 4.2-5.4 [facility] Work Phone: Blood hemoglobin measurement (mass/volume)on 11-04-2021 Hemoglobin (Bld) [Mass/Vol] 13.3 g/dL 12.0-15.0 [facility] Work Phone: Blood lymphocytes/100 leukoc yteson 11-04-2021 Lymphocytes/100 WBC (Bld) 16.7 % 19-41 [facility] Work Phone: Blood monocytes/100 leukocyt eson 11-04-2021 Monocytes/100 WBC (Bld) 6.5 % 0-10 [facility] Work Phone: Blood platelet mean volumeon 11-04-2021 Platelet mean volume (Bld) [Entitic vol] 10.5 fL 6.2-12.0 [facility] Work Phone: [phone] Determination of erythrocyte mean corpuscular volume (MCV)on 11-04-2021 MCV (RBC) [Entitic vol] 111.9 fL 81-99 [facility] Work Phone: Hematocrit Auto (Bld) [Volum e fraction]on 11-04-2021 Hematocrit (Bld) [Volume fraction] 40.3 % 37-47 [facility] Work Phone: [phone] Laboratory - Chemistry and C hemistry - challengeon 11-04-2021 ALP [Catalytic activity/Vol] 82 U/L 45-117 [facility] Work Phone: ALT [Catalytic activity/Vol] 22 U/L 13-56 [facility] Work Phone: CO2 [Moles/Vol] 26.0 mmol/L 21.0-32.0 [facility] Work Phone: [phone] Globulin (S) [Mass/Vol] 4.2 g/dL 2.2-4.2 [facility] Work Phone: [phone] Urea nitrogen/Creatinine [Mass ratio] 14.0 mg/mg 10-20 [facility] Work Phone: Laboratory - Hematology and Cell countson 11-04-2021 Erythrocyte distribution width (RBC) [Entitic vol] 55.7 fL 35.1-43.9 [facility] Work Phone: [phone] Erythrocyte distribution width (RBC) [Ratio] 13.7 % 11.6-14.6 [facility] Work Phone: [phone] Immature granulocytes/100 WBC (Bld) 0.500 % 0.0-0.9 [facility] Work Phone: [phone] Comment on above: IG% - Immature Granu locytes (promyelocytes, myelocytes and metamyelocytes) > 1% indicates that a LEFT SHIFT is Present. MCH (RBC) [Entitic mass] 36.9 pg 27.0-32.0 [facility] Work Phone: [phone] Nucleated RBC/100 WBC (Bld) [Ratio] 0 % 0-5 [facility] Work Phone: [phone] MCHC Auto (RBC) [Mass/Vol]on 11-04-2021 MCHC (RBC) [Mass/Vol] 33.0 g/dL 32-36 [facility] Work Phone: No Panel Informationon 11-04 Estimated Creatinine Clearance Calc 35.12 ml/min [facility] Work Phone: Estimated GFR (MDRD) Amer 59 mL/min >60 [facility] Work Phone: Comment on above: GFR Calc Estimated GFR (MDRD) Non-Af Amer 49 mL/min >60 [facility] Work Phone: Comment on above: Non- GFR Calc Platelets bldon 11-04-2021 Platelets (Bld) [#/Vol] 290 10*3/uL 150-450 [facility] Work Phone: Serum or plasma albumin niels urement (mass/volume)on 11-04-2021 Albumin [Mass/Vol] 3.3 g/dL 3.2-5.0 [facility] Work Phone: Serum or plasma albumin/glob ulin mass ratioon 11-04-2021 Albumin/Globulin [Mass ratio] 0.8 {ratio} 0.9-2.4 [facility] Work Phone: Serum or plasma calcium niels urement (mass/volume)on 11-04-2021 Calcium [Mass/Vol] 9.3 mg/dL 8.5-10.1 [facility] Work Phone: Serum or plasma creatinine m easurement (mass/volume)on 11-04-2021 Creatinine [Mass/Vol] 1.14 mg/dL 0.55-1.02 [facility] Work Phone: Comment on above: The validity of the calculated GFR & GFRAA in patients over 70 years has not been determined. Clinical correlation is essential. Serum or plasma urea nitroge n measurement (mass/volume)on 11-04-2021 Urea nitrogen [Mass/Vol] 16 mg/dL 7-18 [facility] Work Phone: Thin prep Papanicolaou smear with manual screeningon 11-04-2021 Thin prep Papanicolaou smear with manual screening 23 U/L 15-37 [facility] Work Phone: Comment on above: Slight Hemolysis, Re sult may be falsely increased. Thin prep Papanicolaou smear with manual screening 6 5-15 [facility] Work Phone: Blood platelet adequacy dete ction by light microscopyon 11-24-2018 Platelets LM Ql (Bld) ADEQUATE ADEQ [facility] Blood platelet morphology de termination (nominal result)on 11-24-2018 Platelet morphology finding Nom (Bld) LARGE [facility] Laboratory - Hematology and Cell countson 11-24-2018 Anisocytosis Ql (Bld) 2+ [facility] Macrocytes detectionon 11-24 Macrocytes Ql (Bld) 1+ [facility] Target cell detectionon Target cells LM Ql (Bld) RARE [facility] Hypochromatic red blood cell detectionon 10-27-2018 Hypochromia Ql (Bld) 1+ [facility] No Panel Informationon 10-27 Differential Comment SCANNED [facility] Comment on above: DIMORPHIC RBC POPULA TION NOTED Review by pathologiston Pathologist review Jack (Unsp spec) [Interp] Reviewed [facility] Comment on above: Previous reported re sult: Jahaira corral Edited by: URIEL on 10/28/18:1304 AMENDED REPORT 10/28/18 1304 PATH REV previously reported as: Jahaira corral Absolute reticulocyte counto n 10-13-2018 Reticulocytes (Bld) [#/Vol] 0.00 10*3/uL 0-5 [facility] - Hematology and Cell countson 09-29-2018 Erythrocyte distribution width (RBC) [Ratio] 24.6 % High 11.6-14.6 [facility] No Panel Informationon 09-29 Red Cell Distribution Width Diff 73.7 fl High 35.1-43.9 [facility] 24.6 % High 11.6-14.6 [facility] 73.7 fl High 35.1-43.9 [facility] Total cell counton 9 Cells counted [employer] (Bld/Tiss) [#] Not Reportable [facility] RBC morphologyon 09-21-2018 RBC morphology finding Nom (Bld) N CHROM NORMAL NORM C&C [facility] [employer] mix RAST testo n 06-27-2018 LDH [Catalytic activity/Vol] 283 U/L High 84-246 [facility] Comment on above: Slight Hemolysis, Re sult may be falsely increased. Iron measurement (mass/mass) on 06-27-2018 Iron (Unsp spec) [Mass/Mass] 54 ug/dL 50-170 [facility] Comment on above: Slight Hemolysis, Re sult may be falsely increased. JAK2 V617F mutation detectio non 06-27-2018 JAK2 gene p.[id number] [facility] Ql (Bld/Tiss) Comment High . [facility] Comment on above: Result: POSITIVE for the detection of the V617F mutation.Interpretation: The assay detected the presence of a G toT nucleotide change encoding the V617F mutation withinJAK2. Interpretation of this result should be made in thecontext of other clinical, morphologic, and cytogeneticfindings. No Panel Informationon 06-27 JAK2 Mutation Comment . [facility] Comment on above: JAK2 is a cytoplasmi c tyrosine kinase with a ferrell role insignal transduction from multiple hematopoietic growthfactor receptors. A point mutation within exon 14 of theJAK2 gene ([id number]) encoding a valine to phenylalaninesubstitution at position [...] specific to JAK2 wild type (WT) and FWW3ernqbz V617F. The [employer] Absolute Quantitation softwarewill compare the patient specimen valuse to the standardcurves and generate percent values for wild type andmutant type. In vitro studies have indicated that thisassay has an analytical sensitivity of 1%.References:Matthew EJ, Jean LM, Zachary PJ, et al. Acquiredmutation of the tyrosine kinase JAK2 in humanmyeloproliferative disorders. Lancet. 2005 Jun 07;365(3757):9305-9949. Travis Santiago, Guido Haynes, Mary Rosas JP. Aunique clonal JAK2 mutation leading to constitutivesignaling causes polycythaemia vera. Nature. 2005 Jul 17;960(8521):7845-8091.Nicolas R, Bolivar F, Jolynn , et al. A edzd-mn-kmumkmat mutation of JAK2 in myeloproliferative disorders.N Engl J Med. 2005 Jul 17; 352(34):2031-7899. Miscellaneous Test See [facility] Comment on above: TEST RESULT UNITS RE F INTERVALCML Chromosome/FISH ProfileCells Counted 200Cells Analyzed 200FISH Result Comment: NORMAL: NO BCR OR ABL GENE REARRANGEMENT OBSERVEDInterpretation Comment: nuc jacuqeline 9q34(ASS1,ABL1)x2,22q11.2(BCRx2)[200].The fluorescence in situ hybridization (FISH) studywas [...] was developed and its performancecharacteristics determined by [employer]). It has not been cleared orapproved by the U.S. Food and Drug Administration. The DNAprobe vendor for this study was [employer] ([employer]).Specimen Type Comment: BLOODDirector Review: Comment: Travis Chavez, PhD, [facility] .Specimen Type Comment: BLOODCells Counted 5Cells [...] chromosomal changes occur.Director Review: Comment:AMIE FERREIRA, PHD, [facility] TESTING PERFORMED AT [facility]. ORIGINAL REPORT ON FILE IN LAB CONTAINS ADDITIONAL TEST SITE INFORMATION. Total Iron Binding Capacity 289 ug/dL 250-450 [facility] 289 ug/dL 250-450 [facility] See comment [facility] Comment . [facility] Serum or plasma erythropoiet in (EPO) measurement (units/volume)on 06-27-2018 Erythropoietin (EPO) Qn 4.2 mIU/mL 2.6-18.5 [facility] Comment on above: [employer] Uni[employer] el DxI 800 Immunoassay SystemValues obtained with different assay methods or kits cannotbe used interchangeably. Results cannot be interpreted asabsolute evidence of the presence or absence of malignantdisease.Performed at: [facility] [id number] [place], [place] [id number] Director: Mj Coronado MD, Phone: [phone] at: [facility] [id number] [place], [place] [id number] Director: Mj Coronado MD, Phone: [phone] at: CB - [facility] [id number] [place], [place] [id number] Director: Ruddy Parks PhD, Phone: [phone] Serum or plasma ferritin hayden surement (mass/volume)on 06-27-2018 Ferritin [Mass/Vol] 561 ng/mL High 8-252 [facility] Serum or plasma iron saturat ion measurement (mass fraction)on 06-27-2018 Iron saturation [Mass fraction] 18.7 % 15.0-55.0 [facility] Serum or plasma uric acid me asurement (mass/volume)on 06-27-2018 Urate [Mass/Vol] 4.2 mg/dL 2.6-6.0 [facility] Comment on above: The drugs N-Acetylcy steine and Metamizole may falsely depress this assay. Thin prep Papanicolaou smear with manual screeningon 06-27-2018 Thin prep Papanicolaou smear with manual screening 283 U/L 84-246 [facility] Comment on above: Slight Hemolysis, Re sult may be falsely increased. Vital Signs Date Time Vital Sign Value Performing Clinician Faci lity 01-05-2025 09:23-0400 Body height 165.[address] Dago Emery MD Work Phone: [facility] 11-28-2024 08:58-0400 Diastolic blood pressure 56 mm[Hg] Dr. Dago Emery MD Work Phone: [facility] 11-28-2024 08:58-0400 Systolic blood pressure 119 mm[Hg] Dr. Dago Emery MD Work Phone: [facility] 11-28-2024 08:04-0400 Body temperature 98.1 [degF] Dr. Dago Emery MD Work Phone: [facility] 11-28-2024 08:04-0400 Heart rate 69 /min Dr. Dago Emery MD Work Phone: [facility] 11-28-2024 08:04-0400 Respiratory rate 16 /min Dr. Dago Emery MD Work Phone: [facility] 11-28-2024 08:04-0400 SaO2% (BldA) [Mass fraction] 93 % Dr. Dago Emery MD Work Phone: 9(102)346-711958 [place] [address] 11-22-2024 14:50-0400 Body height 165.[address] Dago Emery MD Work Phone: 0(903)602-101758 [place] [address] 11-22-2024 14:50-0400 Body weight 85.[address] Dago Emery MD Work Phone: 3(112)617-467358 [place] [address] 11-21-2024 14:00-0400 Body mass index (BMI) [Ratio] 31.4 kg/m2 Dr. Dago Emery MD Work Phone: 4(001)569-325758 [place] [address] 11-01-2024 16:35-0400 Diastolic blood pressure 71 mm[Hg] Dr. Dago Emery MD Work Phone: 1(193)664-557858 [place] [address] 11-01-2024 16:35-0400 Heart rate 64 /min Dr. Dago Emery MD Work Phone: 9(412)647-193558 [place] [address] 11-01-2024 16:35-0400 Respiratory rate 16 /min Dr. Dago Emery MD Work Phone: 5(995)697-866158 [place] [address] 11-01-2024 16:35-0400 SaO2% (BldA) [Mass fraction] 96 % Dr. Dago Emery MD Work Phone: 0(575)607-638858 [place] [address] 11-01-2024 16:35-0400 Systolic blood pressure 163 mm[Hg] Dr. Dago Emery MD Work Phone: 2(402)563-469058 [place] [address] 11-01-2024 16:20-0400 Body temperature 98.5 [degF] Dr. Dago Emery MD Work Phone: 1(732)204-572858 [place] [address] 11-01-2024 15:07-0400 Body height 165.[address] Dago Emery MD Work Phone: 5(240)773-695758 [place] [address] 11-01-2024 15:07-0400 Body mass index (BMI) [Ratio] 32.5 kg/m2 Dr. Dago Emery MD Work Phone: 9(248)756-456158 [place] [address] 11-01-2024 15:07-0400 Body weight 88.[address] Dago Emery MD Work Phone: 7(322)546-227409 [place] [address] 11-01-2024 14:26-0400 Body mass index (BMI) [Ratio] 32.8 kg/m2 Dr. Dago Emery MD Work Phone: 5(313)151-500509 [place] [address] 11-01-2024 14:26-0400 Body temperature 97.7 [degF] Dr. Dago Emery MD Work Phone: 6(743)111-762658 [place] [address] 11-01-2024 14:26-0400 Body weight 89.[address] Dago Emery MD Work Phone: 3(279)288-148158 [place] [address] 11-01-2024 14:26-0400 Diastolic blood pressure 68 mm[Hg] Dr. Dago Emery MD Work Phone: 3(304)552-802358 [place] [address] 11-01-2024 14:26-0400 Heart rate 67 /min Dr. Dago Emery MD Work Phone: 1(006)484-052458 [place] [address] 11-01-2024 14:26-0400 Respiratory rate 19 /min Dr. Dago Emery MD Work Phone: 2(809)242-016058 [place] [address] 11-01-2024 14:26-0400 SaO2% (BldA) [Mass fraction] 96 % Dr. Dago Emery MD Work Phone: 4(607)339-916158 [place] [address] 11-01-2024 14:26-0400 Systolic blood pressure 153 mm[Hg] Dr. Dago Emery MD Work Phone: 9(378)597-258709 [place] [address] 10-21-2024 13:13-0400 Body temperature 98.3 [degF] Dr. Dago Emery MD Work Phone: 2(793)053-421409 [place] [address] 10-21-2024 13:13-0400 Diastolic blood pressure 67 mm[Hg] Dr. Dago Emery MD Work Phone: 1(259)032-204909 [place] [address] 10-21-2024 13:13-0400 Heart rate 62 /min Dr. Dago Emery MD Work Phone: 1(334)167-142709 [place] [address] 10-21-2024 13:13-0400 Respiratory rate 18 /min Dr. Dago Emery MD Work Phone: 5(049)705-901347 [address] 10-21-2024 13:13-0400 SaO2% (BldA) [Mass fraction] 95 % Dr. Dago Emery MD Work Phone: 1(695)894-815658 [place] [address] 10-21-2024 13:13-0400 Systolic blood pressure 129 mm[Hg] Dr. Dago Emery MD Work Phone: 3(260)189-639958 [place] [address] 10-16-2024 22:13-0400 Inhaled oxygen flow rate 2 L/min Dr. Dago Emery MD Work Phone: 1(635)849-664058 [place] [address] 10-16-2024 20:13-0400 Body height 165.[address] Dago Emery MD Work Phone: 2(063)455-147058 [place] [address] 10-16-2024 20:13-0400 Body mass index (BMI) [Ratio] 31.1 kg/m2 Dr. Dago Emery MD Work Phone: 2(317)651-277458 [place] [address] 10-16-2024 20:13-0400 Body weight [address] Dago Emery MD Work Phone: 3(993)109-090558 [place] [address] 10-11-2024 15:05-0400 Body height 165.[address] Dago Emery MD Work Phone: 3(902)650-405958 [place] [address] 10-11-2024 15:05-0400 Body temperature 98.2 [degF] Dr. Dago Emery MD Work Phone: 9(871)847-604258 [place] [address] 10-11-2024 15:05-0400 Diastolic blood pressure 73 mm[Hg] Dr. Dago Emery MD Work Phone: 3(033)140-873258 [place] [address] 10-11-2024 15:05-0400 Heart rate 52 /min Dr. Dago Emery MD Work Phone: 8(064)663-016258 [place] [address] 10-11-2024 15:05-0400 Respiratory rate 16 /min Dr. Dago Emery MD Work Phone: 1(954)570-246958 [place] [address] 10-11-2024 15:05-0400 SaO2% (BldA) [Mass fraction] 98 % Dr. Dago Emery MD Work Phone: 9(009)522-157909 [place] [address] 10-11-2024 15:05-0400 Systolic blood pressure 169 mm[Hg] Dr. Dago Emery MD Work Phone: 6(594)246-937158 [place] [address] 09-20-2024 14:30-0400 Body height 165.[address] Dago Emery MD Work Phone: 0(742)246-511158 [place] [address] 09-20-2024 14:30-0400 Body mass index (BMI) [Ratio] 32.4 kg/m2 Dr. Dago Emery MD Work Phone: 5(146)958-844558 [place] [address] 09-20-2024 14:30-0400 Body weight 88.[address] Dago Emery MD Work Phone: 1(408)676-236758 [place] [address] 09-20-2024 14:30-0400 Diastolic blood pressure 73 mm[Hg] Dr. Dago Emery MD Work Phone: 3(958)443-496458 [place] [address] 09-20-2024 14:30-0400 Heart rate 56 /min Dr. Dago Emery MD Work Phone: 4(018)537-307758 [place] [address] 09-20-2024 14:30-0400 Respiratory rate 18 /min Dr. Dago Emery MD Work Phone: 0(591)411-536558 [place] [address] 09-20-2024 14:30-0400 SaO2% (BldA) [Mass fraction] 95 % Dr. Dago Emery MD Work Phone: 0(378)546-850958 [place] [address] 09-20-2024 14:30-0400 Systolic blood pressure 124 mm[Hg] Dr. Dago Emery MD Work Phone: 8(213)753-621058 [place] [address] 07-10-2024 13:45-0400 Body height 165.[address] Dago Emery MD Work Phone: 7(417)497-834958 [place] [address] 07-10-2024 13:45-0400 Body temperature 97.8 [degF] Dr. Dago Emery MD Work Phone: 1(307)679-077758 [place] [address] 07-10-2024 13:45-0400 Diastolic blood pressure 66 mm[Hg] Dr. Dago Emery MD Work Phone: [facility] 07-10-2024 13:45-0400 Heart rate 46 /min Dr. Dago Emery MD Work Phone: [facility] 07-10-2024 13:45-0400 Respiratory rate 16 /min Dr. Dago Emery MD Work Phone: [facility] 07-10-2024 13:45-0400 SaO2% (BldA) [Mass fraction] 98 % Dr. Dago Emery MD Work Phone: [facility] 07-10-2024 13:45-0400 Systolic blood pressure 104 mm[Hg] Dr. Dago Emery MD Work Phone: 3(256)343-515709 [place] [address] 02-22-2024 14:10-0500 Body weight 88.[address] Dago Emery MD Work Phone: 7(196)803-795947 [address] 11-04-2022 14:40-0400 Body height 165.[address] Dago Emery Work Phone: 7(210)447-605009 [place] [address] 11-04-2022 14:40-0400 Body mass index (BMI) [Ratio] 34.2 kg/m2 Dr. Dago Emery Work Phone: 9(588)323-516109 [place] [address] 11-04-2022 14:40-0400 Body temperature 98 [degF] Dr. Dago Emery Work Phone: 9(244)446-415309 [place] [address] 11-04-2022 14:40-0400 Body weight 93.[address] Dago Emery Work Phone: [facility] 11-04-2022 14:40-0400 Diastolic blood pressure 74 mm[Hg] Dr. Dago Emery Work Phone: 2(619)236-281509 [place] [address] 11-04-2022 14:40-0400 Heart rate 51 /min Dr. Dago Emery Work Phone: [facility] 11-04-2022 14:40-0400 Respiratory rate 16 /min Dr. Dago Emery Work Phone: [facility] 11-04-2022 14:40-0400 SaO2% (BldA) [Mass fraction] 98 % Dr. Dago Emery Work Phone: 5(076)161-093109 [place] [address] 11-04-2022 14:40-0400 Systolic blood pressure 140 mm[Hg] Dr. Dago Emery Work Phone: 0(232)717-857409 [place] [address] 10-14-2022 12:50-0400 Body temperature 97.6 [degF] Dr. Dago Emery Work Phone: 5(455)791-500258 [place] [address] 10-14-2022 12:50-0400 Diastolic blood pressure 47 mm[Hg] Dr. Dago Emery Work Phone: 6(697)636-178558 [place] [address] 10-14-2022 12:50-0400 Heart rate 70 /min Dr. Dago Emery Work Phone: 9(808)798-206058 [place] [address] 10-14-2022 12:50-0400 Respiratory rate 18 /min Dr. Dago Emery Work Phone: 1(648)685-373058 [place] [address] 10-14-2022 12:50-0400 SaO2% (BldA) [Mass fraction] 94 % Dr. Dago Emery Work Phone: 2(714)194-700458 [place] [address] 10-14-2022 12:50-0400 Systolic blood pressure 141 mm[Hg] Dr. Dago Emery Work Phone: 0(123)348-529258 [place] [address] 10-13-2022 09:00-0400 Body mass index (BMI) [Ratio] 34.4 kg/m2 Dr. Dago Emery Work Phone: 7(767)112-434558 [place] [address] 10-13-2022 09:00-0400 Body weight 93.[address] Dago Emery Work Phone: 4(663)974-890758 [place] [address] 08-05-2022 13:49-0400 Body height 165.[address] Dago Emery Work Phone: 6(256)426-432109 [place] [address] 08-05-2022 13:49-0400 Body mass index (BMI) [Ratio] 34.2 kg/m2 Dr. Dago Emery Work Phone: 8(943)089-391909 [place] [address] 08-05-2022 13:49-0400 Body temperature 98.3 [degF] Dr. Dago Emery Work Phone: 4(152)291-433509 [place] [address] 08-05-2022 13:49-0400 Body weight 93.[address] Dago Emery Work Phone: [facility] 08-05-2022 13:49-0400 Diastolic blood pressure 83 mm[Hg] Dr. Dago Emery Work Phone: 6(859)267-116009 [place] [address] 08-05-2022 13:49-0400 Heart rate 45 /min Dr. Dago Emery Work Phone: 5(928)605-699909 [place] [address] 08-05-2022 13:49-0400 Respiratory rate 18 /min Dr. Dago Emery Work Phone: 2(433)662-180209 [place] [address] 08-05-2022 13:49-0400 SaO2% (BldA) [Mass fraction] 99 % Dr. Dago Emery Work Phone: 0(403)125-968609 [place] [address] 08-05-2022 13:49-0400 Systolic blood pressure 137 mm[Hg] Dr. Dago Emery Work Phone: 3(325)071-699447 [address] 05-06-2022 14:19-0500 Body height 165.[address] Dago Emery Work Phone: 0(770)420-204809 [place] [address] 05-06-2022 14:19-0500 Body mass index (BMI) [Ratio] 35.5 kg/m2 Dr. Dago Emery Work Phone: 5(875)683-700409 [place] [address] 05-06-2022 14:19-0500 Body temperature 98.3 [degF] Dr. Dago Emery Work Phone: 3(815)350-993909 [place] [address] 05-06-2022 14:19-0500 Body weight 96.[address] Dago Emery Work Phone: 3(835)286-681309 [place] [address] 05-06-2022 14:19-0500 Diastolic blood pressure 72 mm[Hg] Dr. Dago Emery Work Phone: 2(588)385-059209 [place] [address] 05-06-2022 14:19-0500 Heart rate 46 /min Dr. Dago Emery Work Phone: [facility] 05-06-2022 14:19-0500 Respiratory rate 18 /min Dr. Dago Emery Work Phone: 8(124)702-535609 [place] [address] 05-06-2022 14:19-0500 SaO2% (BldA) [Mass fraction] 98 % Dr. Dago Emery Work Phone: 0(775)940-643109 [place] [address] 05-06-2022 14:19-0500 Systolic blood pressure 121 mm[Hg] Dr. Dago Emery Work Phone: 2(754)819-440209 [place] [address] 04-12-2022 08:38-0500 Diastolic blood pressure 94 mm[Hg] Dr. Dago Emery Work Phone: 8(837)376-206658 [place] [address] 04-12-2022 08:38-0500 Heart rate 60 /min Dr. Dago Emery Work Phone: 6(449)935-329258 [place] [address] 04-12-2022 08:38-0500 Respiratory rate 16 /min Dr. Dago Emery Work Phone: 7(833)234-306758 [place] [address] 04-12-2022 08:38-0500 SaO2% (BldA) [Mass fraction] 96 % Dr. Dago Emery Work Phone: 3(053)402-390958 [place] [address] 04-12-2022 08:38-0500 Systolic blood pressure 178 mm[Hg] Dr. Dago Emery Work Phone: 2(337)685-452158 [place] [address] 04-12-2022 08:33-0500 Body height 165.[address] Dago Emery Work Phone: 2(535)509-616458 [place] [address] 04-12-2022 08:33-0500 Body mass index (BMI) [Ratio] 36.3 kg/m2 Dr. Dago Emery Work Phone: 6(410)451-866258 [place] [address] 04-12-2022 08:33-0500 Body temperature 98.5 [degF] Dr. Dago Emery Work Phone: 9(976)651-929958 [place] [address] 04-12-2022 08:33-0500 Body weight 99.[address] Dago Emery Work Phone: 2(431)280-586558 [place] [address] 02-04-2022 14:20-0500 Body mass index (BMI) [Ratio] 34.4 kg/m2 Dr. Dago Emery Work Phone: [facility] 02-04-2022 14:20-0500 Body temperature 97.8 [degF] Dr. Dago Emery Work Phone: [facility] 02-04-2022 14:20-0500 Body weight 93.[address] Dago Emery Work Phone: [facility] 02-04-2022 14:20-0500 Diastolic blood pressure 79 mm[Hg] Dr. Dago Emery Work Phone: [facility] 02-04-2022 14:20-0500 Heart rate 51 /min Dr. Dago Emery Work Phone: [facility] 02-04-2022 14:20-0500 Respiratory rate 16 /min Dr. Dago Emery Work Phone: [facility] 02-04-2022 14:20-0500 SaO2% (BldA) [Mass fraction] 97 % Dr. Dago Emery Work Phone: [facility] 02-04-2022 14:20-0500 Systolic blood pressure 132 mm[Hg] Dr. Dago Emery Work Phone: [facility] 11-04-2021 13:59-0400 Body height 165.[address] Dago Emery Work Phone: [facility] Work Phone: 11-04-2021 13:59-0400 Body mass index (BMI) [Ratio] 34.4 kg/m2 Dr. Dago Emery Work Phone: [facility] Work Phone: 11-04-2021 13:59-0400 Body temperature 97.4 [degF] Dr. Dago Emery Work Phone: [facility] Work Phone: 11-04-2021 13:59-0400 Body weight [address] Dago Emeyr Work Phone: [facility] Work Phone: 11-04-2021 13:59-0400 Diastolic blood pressure 80 mm[Hg] Dr. Dago Emery Work Phone: [facility] Work Phone: 11-04-2021 13:59-0400 Heart rate 51 /min Dr. Dago Emery Work Phone: [facility] Work Phone: 11-04-2021 13:59-0400 Respiratory rate 16 /min Dr. Dago Emery Work Phone: [facility] Work Phone: 11-04-2021 13:59-0400 SaO2% (BldA) [Mass fraction] 97 % Dr. Dago Emery Work Phone: [facility] Work Phone: 11-04-2021 13:59-0400 Systolic blood pressure 130 mm[Hg] Dr. Dago Emery Work Phone: [facility] Work Phone: 04-25-2020 14:46-0500 Body mass index (BMI) [Ratio] 37.8 kg/m2 Dr. Dago Emery Work Phone: [facility] 04-25-2020 14:46-0500 Body temperature 98 [degF] Dr. Dago Emery Work Phone: [facility] 04-25-2020 14:46-0500 Body weight 99.[address] Dago Emery Work Phone: [facility] 04-25-2020 14:46-0500 Diastolic blood pressure 87 mm[Hg] Dr. Dago Emery Work Phone: [facility] 04-25-2020 14:46-0500 Heart rate 54 /min Dr. Dago Emery Work Phone: [facility] 04-25-2020 14:46-0500 Respiratory rate 17 /min Dr. Dago Emery Work Phone: [facility] 04-25-2020 14:46-0500 SaO2% (BldA) [Mass fraction] 97 % Dr. Dago Emery Work Phone: [facility] 04-25-2020 14:46-0500 Systolic blood pressure 155 mm[Hg] Dr. Dago Emery Work Phone: [facility] Encounters Encounter Date Encounter Type Care Provider Facility Start: 01-31-2025 ambulatory [facility] Facility:[facility] Start: 01-24-2025 End: 01-24-2025 [facility] Start: 01-17-2025 End: 01-17-2025 ambulatory [facility] Facility:[facility] Start: 01-10-2025 ambulatory Efewongbe Oleghe OLS Fa cility:[facility] Start: 01-03-2025 ambulatory Efewongbe Oleghe OLS Fa cility:[facility] Start: 01-03-2025 Irvin Reeves Start: 12-28-2024 ambulatory Efewongbe Oleghe OLS Fa cility:[facility] Start: 12-28-2024 Irvin Reeves Start: 12-20-2024 ambulatory Efewongbe Oleghe OLS Fa cility:[facility] Start: 12-20-2024 Irvin Reeves Start: 12-13-2024 End: 12-13-[address] Dago Emery MD Work Phone: -[facility] Start: 12-13-2024 End: 12-13-2024 Fouzia HAINES -[facility] Work Phone: Start: 12-13-2024 ambulatory Efewongbe Oleghe OLS Fa cility:[facility] Start: 12-13-2024 Irvin Reeves Start: 12-08-2024 ambulatory Efewongbe Oleghe OLS Fa cility:[facility] Start: 12-08-2024 Irvin Reeves Start: 12-06-2024 ambulatory Irvin SARABIA Grisel cility:[facility] Start: 12-06-2024 Irvin Reeves Start: 12-05-2024 End: 12-05-[address] Dago Emery MD Work Phone: [facility] Start: 12-05-2024 End: 12-05-2024 [facility] Work Phone: Start: 11-30-2024 End: 11-30-[address] Dago Emery MD Work Phone: [facility] Start: 11-30-2024 End: 11-30-2024 [facility] Work Phone: Start: 11-29-2024 Irvin Reeves Start: 11-28-2024 End: 11-29-[address] Dago Emery MD Work Phone: [facility] Start: 11-28-2024 End: 11-28-2024 Dr. Irvin Mckenna MD [facility] Work Phone: Start: 11-01-2024 Non-patient / Non-visit Pio Ortiz nd DO -[facility] Start: 11-01-2024 End: 11-01-2024 Admission to same day surgery center Pio Friend DO -Endoscopy Work Phone: Start: 11-01-2024 End: 11-01-2024 Pio Friend DO -Endoscopy Work Phone: Start: 11-01-2024 End: 11-01-[address] Dago Emery MD Work Phone: -Endoscopy Start: 10-31-2024 Non-patient / Non-visit Pio Ortiz nd DO -[facility] Start: 10-31-2024 Pio Webb DO -[facility] Start: 10-21-2024 ambulatory Pio Webb Facility :[facility] Start: 10-21-2024 End: 11-28-2024 Evaluation and management of inpatient Dr. Dago Emery MD -Transitional Care Unit Start: 10-21-2024 End: 11-28-2024 Dr. Dago Emery MD -Transitional Care Unit Start: 10-20-2024 Non-patient / Non-visit Dr. Sofia giang MD -[facility] Work Phone: Start: 10-20-2024 Dr. Sofia Carvajal MD [facility] Work Phone: Start: 10-18-2024 ambulatory Saulo Bullock [facility] Start: 10-18-2024 End: 10-21-2024 Evaluation and management of inpatient Dr. Geo Rodriguez MD -[facility] 3 Work Phone: Start: 10-18-2024 End: 10-21-2024 Dr. Geo Rodriguez MD -[facility] 3 Work Phone: Start: 10-18-2024 Non-patient / Non-visit Dr. Joselin Valente MD [facility] Work Phone: Start: 10-18-2024 Dr. See Valente MD [facility] Work Phone: Start: 10-17-2024 Non-patient / Non-visit Dr. Joselin Valente MD [facility] Work Phone: Start: 10-17-2024 Dr. See Valente MD [facility] Work Phone: Start: 10-16-2024 Non-patient / Non-visit Dr. Foley [facility] Work Phone: Start: 10-16-2024 Dr. Saulo Bullock [facility] Work Phone: Start: 10-16-2024 ambulatory Saulo Reyes ility:[facility] Start: 10-11-[address] Cira Pate MD -[facility] Start: 10-11-2024 End: 10-11-2024 Patient encounter procedure Carolyn Peg [facility] Work Phone: Start: 10-11-2024 End: 10-11-2024 Carolyn Ruvalcaba [facility] Work Phone: Start: 10-11-2024 End: 10-11-[address] Dago Emery MD Work Phone: [facility] Start: 09-20-2024 End: 09-20-[address] Omero Armas MD -[facility] Work Phone: Start: 09-20-2024 End: 09-20-[address] Omero Armas MD [facility] Start: 09-20-2024 End: 09-20-[address] Omero Armas MD [facility] Start: 09-20-2024 End: 09-20-2024 Dr. Omero Armas MD -[facility] Work Phone: Start: 09-20-2024 End: 09-20-[address] Dago Emery MD Work Phone: [facility] Start: 08-08-2024 [facility] Start: 08-01-2024 End: 08-01-2024 Non-patient / Non-visit Dr. Omero Armas MD -[facility] Work Phone: Start: 08-01-2024 End: 08-01-[address] Dago Emery MD Work Phone: [facility] Work Phone: Start: 08-01-2024 End: 08-01-[address] Dago Emery MD -Pulmonary Services/Neurology Work Phone: Start: 07-31-2024 End: 08-01-[address] Dago Emery MD Work Phone: [facility] Work Phone: Start: 07-31-2024 End: 07-31-[address] Dago Emery MD -[facility] Start: 07-31-2024 End: 07-31-2024 ambulatory [facility] Facility:[facility] Start: 07-10-[address] Cira Pate MD -[facility] Start: 07-10-2024 End: 07-10-2024 Patient encounter procedure Carolyn Ruvalcaba NP-C -[facility] Work Phone: Start: 07-10-2024 End: 07-10-2024 ambulatory [facility] Facility:[facility] Start: 02-22-2024 End: 02-22-2024 ambulatory [facility] Facility:[facility] Start: 01-25-2023 End: 01-25-[address] Dago Emery Work Phone: [facility] Work Phone: Start: 01-25-2023 End: 01-25-[address] Dago Emery Work Phone: [facility]-Laboratory, Phy Office 3rd Flr Start: 11-04-[address] Dago hays Work Phone: [facility] Start: 11-04-2022 End: 11-04-[address] Dago Emery Work Phone: [facility] Work Phone: Start: 09-25-2022 End: 10-14-2022 Evaluation and management of inpatient Dr. Dago Emery Work Phone: [facility]-Transitional Care Unit Start: 09-04-2022 End: 09-04-[address] Daog Emery Work Phone: [facility] Work Phone: Start: 09-04-2022 End: 09-04-[address] Dago Emery Work Phone: [facility] Start: 08-05-2022 End: 08-05-[address] Dago Emery Work Phone: [facility] Start: 08-05-[address] Dago hays Work Phone: [facility] Start: 07-20-2022 End: 07-20-[address] Dago Emery Work Phone: [facility] Work Phone: Start: 07-20-2022 End: 07-20-[address] Dago Emery Work Phone: [facility] Office [address] [place] [address] Start: 05-06-[address] Dago hays Work Phone: [facility] Start: 05-06-2022 End: 05-06-[address] Dago Emery Work Phone: [facility] Start: 04-12-2022 End: 04-12-2022 Emergency department patient visit Dr. Dago Emery Work Phone: [facility]-Emergency Department Start: 02-04-[address] Dago hays Work Phone: [facility] Start: 02-04-2022 End: 02-04-[address] Dago Emery Work Phone: [facility] Start: 01-19-2022 End: 01-19-[address] Dago Emery Work Phone: [facility] Work Phone: Start: 01-19-2022 End: 01-19-[address] Dago Emery Work Phone: [facility]-Laboratory, Phy Office 3rd Flr Start: 11-04-[address] Dago hays Work Phone: [facility] Start: 11-04-2021 End: 11-04-[address] Dago Emery Work Phone: [facility] Procedures Date Procedure Procedure Detail Performing Clinician Start: 01-10-2025 Mean corpuscular hemoglobin concentration determination Dr. Dago Emery MD Work Phone: Start: 01-10-[address] Dago Emery MD Work Phone: Start: 01-10-2025 Nucleated red blood cell count procedure Dr. Dago Emery MD Work Phone: Start: 01-10-2025 Platelet mean volume determination Dr. Nilson Emery MD Work Phone: Start: 01-03-2025 Mean corpuscular hemoglobin concentration determination Dr. Dago Emery MD Work Phone: Start: 01-03-[address] Dago Emery MD Work Phone: Start: 01-03-2025 Nucleated red blood cell count procedure Dr. Dago Emery MD Work Phone: Start: 01-03-2025 Platelet mean volume determination Dr. Nilson Emery MD Work Phone: Start: 12-28-2024 Mean corpuscular hemoglobin concentration determination Dr. Dago Emery MD Work Phone: Start: 12-28-[address] Dago Emery MD Work Phone: Start: 12-28-2024 Nucleated red blood cell count procedure Dr. Dago Emery MD Work Phone: Start: 12-28-2024 Platelet mean volume determination Dr. Nilson Emery MD Work Phone: Start: 12-20-2024 Mean corpuscular hemoglobin concentration determination Dr. Dago Emery MD Work Phone: Start: 12-20-[address] Dago Emery MD Work Phone: Start: 12-20-2024 Nucleated red blood cell count procedure Dr. Dago Emery MD Work Phone: Start: 12-20-2024 Platelet mean volume determination Dr. Nilson Emery MD Work Phone: Start: 12-13-2024 Mean corpuscular hemoglobin concentration determination Dr. Dago Emery MD Work Phone: Start: 12-13-[address] Dago Emery MD Work Phone: Start: 12-13-2024 Nucleated red blood cell count procedure Dr. Dago Emery MD Work Phone: Start: 12-13-2024 Platelet mean volume determination Dr. Nilson Emery MD Work Phone: Start: 12-06-2024 Mean corpuscular hemoglobin concentration determination Dr. Dago Emery MD Work Phone: Start: 12-06-[address] Dago Emery MD Work Phone: Start: 12-06-2024 Nucleated red blood cell count procedure Dr. Dago Emery MD Work Phone: Start: 12-06-2024 Platelet mean volume determination Dr. Nilson Emery MD Work Phone: Start: 11-29-2024 Mean corpuscular hemoglobin concentration determination Dr. Dago Emery MD Work Phone: Start: 11-29-[address] Dago Emery MD Work Phone: Start: 11-29-2024 Nucleated red blood cell count procedure Dr. Dago Emery MD Work Phone: Start: 11-29-2024 Platelet mean volume determination Dr. Nilson Emery MD Work Phone: Start: 11-29-2024 Vitamin D, 25-hydroxy measurement Dr. Jorge Emery MD Work Phone: Start: 11-24-[address] Dago hays MD Work Phone: Start: 11-24-2024 Mean corpuscular hemoglobin concentration determination Dr. Dago Emery MD Work Phone: Start: 11-24-[address] Dago Emery MD Work Phone: Start: 11-24-2024 Nucleated red blood cell count procedure Dr. Dago Emery MD Work Phone: Start: 11-24-2024 Platelet mean volume determination Dr. Nilson Emery MD Work Phone: Start: 11-13-2024 Viral antigen [...] Dago hays MD Work Phone: Start: 10-21-2024 Mean corpuscular hemoglobin concentration determination Dr. Dago Emery MD Work Phone: Start: 10-21-[address] Dago Emery MD Work Phone: Start: 10-21-2024 Nucleated red blood cell count procedure Dr. Dago Emery MD Work Phone: Start: 10-21-2024 Platelet mean volume determination Dr. Nilson Emery MD Work Phone: Start: 10-17-2024 MRI [...] Dago hays MD Work Phone: Start: 10-11-2024 Mean corpuscular hemoglobin concentration determination Dr. Dago Emery MD Work Phone: Start: 10-11-[address] Dago Emery MD Work Phone: Start: 10-11-2024 Nucleated red blood cell count procedure Dr. Dago Emery MD Work Phone: Start: 10-11-2024 Platelet mean volume determination Dr. Nilson Emery MD Work Phone: Start: 10-11-2024 Methicillin resistant Staphylococcus aureus screening test Dr. Dago Emery MD Work Phone: Start: 08-01-2024 MRI of lower extremity Dr. Dago Emery MD Work Phone: Start: 07-31-2024 Calculation of international normalized ratio Dr. Dago Emery MD Work Phone: Start: [...] of knee Dr. Dago hays Work Phone: Start: 06-27-2018 Allergen spec ige crude allergen extract each Dr. Dago Emery MD Work Phone: Plan of Treatment Date Care Activity Detail Author Start: 01-10-2025 -FIOR Reeves Start: 11-28-2024 Development of care plan [facility] Start: 11-28-2024 Patient discharge [facility] Start: 11-21-2024 [facility] Start: 11-17-2024 Developing a treatment plan [facility] Start: 11-14-2024 Speech therapy management [facility] Start: 11-03-2024 Elevation of affected extremity [facility] Start: 11-01-2024 Endoscopy upper small intestine w/biopsy [facility] Start: 11-01-2024 Patient discharge [facility] Start: 10-31-2024 Speech therapy assessment [facility] Start: 10-31-2024 Referral to gastroenterology service [facility] Start: 10-30-2024 Verification routine [facility] Start: 10-25-2024 [facility] Start: 10-22-2024 Developing a treatment plan [facility] Start: 10-21-2024 Chemotherapy care management [facility] Start: 10-21-2024 Wound care [facility] Start: 10-21-2024 Recommendation to continue with treatment [facility] Start: 10-21-2024 Admission procedure [facility] Start: 10-21-2024 Introduction of urinary catheter [facility] Start: 10-21-2024 Measuring intake and output [facility] Start: 10-21-2024 Patient referral to dietitian [facility] Start: 10-21-2024 Referral for physical therapy [facility] Start: 10-21-2024 Referral to occupational therapist [facility] Start: 10-21-2024 Referral to service [facility] Start: 10-21-2024 Vital signs measurements [facility] Start: 10-21-2024 End: 10-21-2024 [facility] Start: 10-21-2024 Patient discharge [facility] Start: 10-18-2024 Admission procedure [facility] Start: 10-18-2024 Care regimes management [facility] Start: 10-17-2024 [facility] Start: 10-16-2024 Application of intermittent pneumatic compression device [facility] Start: 10-16-2024 Following clinical pathway protocol [facility] Start: 10-16-2024 Provision of overbed trapeze [facility] Start: 10-16-2024 Ambulation therapy management [facility] Start: 10-16-2024 Assessment of risk of venous thromboembolism [facility] Start: 10-16-2024 Catheterization of vein [facility] Start: 10-16-2024 Exercises [facility] Start: 10-16-2024 Neurovascular assessment [facility] Start: 10-16-2024 Procedure discontinued [facility] Start: 10-16-2024 Recommendation to continue with treatment [facility] Start: 10-16-2024 Referral for physical therapy [facility] Start: 10-16-2024 Referral to occupational therapist [facility] Start: 10-16-2024 Referral to service [facility] Start: 10-16-2024 Vital signs measurements [facility] Start: 10-16-2024 End: 10-16-2024 [facility] Start: 10-16-2024 Application of device [facility] Start: 10-16-2024 Application of elastic bandage [facility] Start: 10-16-2024 Introduction of urinary catheter [facility] Start: 10-16-2024 Measuring intake and output [facility] Start: 10-16-2024 Patient education [facility] Start: 10-16-2024 Provision of activity privileges [facility] Start: 10-16-2024 Wound care [facility] Start: 10-16-2024 Admission procedure [facility] Start: 10-16-2024 Consultation [facility] Start: 10-11-2024 CBC W Auto Differential panel - Blood [facility] Start: 10-11-2024 [facility] Start: 07-31-2024 Electrocardiographic procedure [facility] Start: 10-14-2022 Patient discharge [facility] Start: 10-13-2022 Development of care plan [facility] Start: 10-09-2022 Referral to service [facility] Start: 10-09-2022 [facility] Start: 10-04-2022 [facility] Start: 10-04-2022 [facility] Start: 09-26-2022 Developing a treatment plan [facility] Start: 09-26-2022 Development of care plan [facility] Start: 09-26-2022 Application of device [facility] Start: 09-25-2022 Wound care [facility] Start: 09-25-2022 Admission procedure [facility] Start: 09-25-2022 Measuring intake and output [facility] Start: 09-25-2022 Patient referral to dietitian [facility] Start: 09-25-2022 Referral to occupational therapist [facility] Start: 09-25-2022 Referral to service [facility] Start: 09-25-2022 Vital signs measurements [facility] Start: 09-25-2022 End: 09-25-2022 [facility] Start: 07-21-2018 [facility] Anion gap in Serum or Plasma [facility] Anion gap in Serum or Plasma [facility] Anion gap in Serum or Plasma [facility] Anion gap in Serum or Plasma [facility] Anion gap in Serum or Plasma [facility] Basic metabolic 2008 panel with ionized calcium - Serum or Plasma [facility] BUN/Creatinine ratio [facility] BUN/Creatinine ratio [facility] BUN/Creatinine ratio [facility] BUN/Creatinine ratio [facility] BUN/Creatinine ratio [facility] Calcium [Mass/volume ] in Serum or Plasma [facility] Calcium [Mass/volume ] in Serum or Plasma [facility] Calcium [Mass/volume ] in Serum or Plasma [facility] Calcium [Mass/volume ] in Serum or Plasma [facility] Calcium [Mass/volume ] in Serum or Plasma [facility] Carbon dioxide, tota l [Moles/volume] in Central venous blood [facility] Carbon dioxide, tota l [Moles/volume] in Central venous blood [facility] Carbon dioxide, tota l [Moles/volume] in Central venous blood [facility] Carbon dioxide, tota l [Moles/volume] in Central venous blood [facility] Carbon dioxide, tota l [Moles/volume] in Central venous blood [facility] CBC W Auto Different ial panel - Blood [facility] Work Phone: CBC W Auto Different ial panel - Blood [facility] CBC W Auto Different ial panel - Blood [facility] CBC W Auto Different ial panel - Blood [facility] CBC W Auto Different ial panel - Blood [facility] CBC W Auto Different ial panel - Blood [facility] CBC W Auto Different ial panel - Blood [facility] Comprehensive metabo lic 1999 panel - Serum or Plasma [facility] Comprehensive metabo lic 2000 panel - Serum or Plasma [facility] Creatinine [Mass/vol ume] in Serum or Plasma [facility] Creatinine [Mass/vol ume] in Serum or Plasma [facility] Creatinine [Mass/vol ume] in Serum or Plasma [facility] Creatinine [Mass/vol ume] in Serum or Plasma [facility] Creatinine [Mass/vol ume] in Serum or Plasma [facility] Erythrocyte mean cor puscular volume determination [facility] Erythrocyte mean cor puscular volume determination [facility] Erythrocyte mean cor puscular volume determination [facility] Erythrocyte mean cor puscular volume determination [facility] Erythrocyte mean cor puscular volume determination [facility] Glucose [Mass/volume ] in Serum or Plasma [facility] Glucose [Mass/volume ] in Serum or Plasma [facility] Glucose [Mass/volume ] in Serum or Plasma [facility] Glucose [Mass/volume ] in Serum or Plasma [facility] Glucose [Mass/volume ] in Serum or Plasma [facility] Hematocrit [Volume F raction] of Blood [facility] Hematocrit [Volume F raction] of Blood [facility] Hematocrit [Volume F raction] of Blood [facility] Hematocrit [Volume F raction] of Blood [facility] Hematocrit [Volume F raction] of Blood [facility] Hemoglobin [Mass/vol ume] in Blood [facility] Hemoglobin [Mass/vol ume] in Blood [facility] Hemoglobin [Mass/vol ume] in Blood [facility] Hemoglobin [Mass/vol ume] in Blood [facility] Hemoglobin [Mass/vol ume] in Blood [facility] Leukocytes [#/volume] in Blood [facility] Leukocytes [#/volume] in Blood [facility] Leukocytes [#/volume] in Blood [facility] Leukocytes [#/volume] in Blood [facility] Leukocytes [#/volume] in Blood [facility] Mean corpuscular hem oglobin concentration determination [facility] Mean corpuscular hem oglobin concentration determination [facility] Mean corpuscular hem oglobin concentration determination [facility] Mean corpuscular hem oglobin concentration determination [facility] Mean corpuscular hem oglobin concentration determination [facility] Mean corpuscular hem oglobin determination [facility] Mean corpuscular hem oglobin determination [facility] Mean corpuscular hem oglobin determination [facility] Mean corpuscular hem oglobin determination [facility] Mean corpuscular hem oglobin determination [facility] Measurement of renal function [facility] Measurement of renal function [facility] Measurement of renal function [facility] Measurement of renal function [facility] Measurement of renal function [facility] Neutrophil count [facility] Neutrophil count [facility] Neutrophil count [facility] Neutrophil count [facility] Neutrophil count [facility] Neutrophil percent d ifferential count [facility] Neutrophil percent d ifferential count [facility] Neutrophil percent d ifferential count [facility] Neutrophil percent d ifferential count [facility] Neutrophil percent d ifferential count [facility] Patient Education ED [facility] Work Phone: Patient referral [facility] Work Phone: Platelets [#/volume] in Blood [facility] Platelets [#/volume] in Blood [facility] Platelets [#/volume] in Blood [facility] Platelets [#/volume] in Blood [facility] Platelets [#/volume] in Blood [facility] Potassium measurement [facility] Potassium measurement [facility] Potassium measurement [facility] Potassium measurement [facility] Potassium measurement [facility] Red blood cell count [facility] Red blood cell count [facility] Red blood cell count [facility] Red blood cell count [facility] Red blood cell count [facility] Red cell distributio n width determination [facility] Red cell distributio n width determination [facility] Red cell distributio n width determination [facility] Red cell distributio n width determination [facility] Red cell distributio n width determination [facility] Serum chloride measurement [facility] Serum chloride measurement [facility] Serum chloride measurement [facility] Serum chloride measurement [facility] Serum chloride measurement [facility] Sodium measurement [facility] Sodium measurement [facility] Sodium measurement [facility] Sodium measurement [facility] Sodium measurement [facility] Urea nitrogen [Mass/ volume] in Serum or Plasma [facility] Urea nitrogen [Mass/ volume] in Serum or Plasma [facility] Urea nitrogen [Mass/ volume] in Serum or Plasma [facility] Urea nitrogen [Mass/ volume] in Serum or Plasma [facility] Urea nitrogen [Mass/ volume] in Serum or Plasma [facility] Immunizations Immunization Date Immunization Notes Care Provider Fa cility 11-23-2020 Covid (Moderna) Dr. Dago Emery Work Phone: [facility] 10-26-2020 Covid ([employer] Dr. Dago Emery Work Phone: [facility] 01-16-2020 influenza, injectabl e, quadrivalent, preservative free Dr. Dago Emery Work Phone: [facility] 11-23-[address] Dago Emery Work Phone: [facility] 09-07-[address] Dago Emery Work Phone: [facility] 01-12-2019 influenza, injectabl e, quadrivalent, preservative free Dr. Dago Emery Work Phone: [facility] 12-20-2008 pneumococcal vaccine , unspecified formulation Dr. Dago Emery Work Phone: [facility] 07-21-2008 pneumococcal polysaccharide vaccine, [address] Dago Emery Work Phone: [facility] Payers Date Payer Category Payer Self-pay [id number] 2018 Medicare [id number] 2018 Private Health Insurance [id number] [id number] Unknown [facility] [id number] Unknown [id number] 2.16.840.1.863780.3.579.2.462 Unknown [id number] 2.16.840.1.538483.3.579.2.462 Unknown [id number] 2.16.840.1.856605.3.579.2.462 Unknown [id number] 2.16.840.1.299639.3.579.2.462 Unknown [id number] 2.16.840.1.011806.3.579.2.462 Unknown [id number] 2.16.840.1.844748.3.579.2.462 Unknown [id number] 2.16.840.1.699478.3.579.2.462 Unknown [id number] 2.16.840.1.318149.3.579.2.462 Unknown [id number] 2.16.840.1.356957.3.579.2.462 Unknown [id number] 2.16.840.1.574197.3.579.2.462 Unknown [id number] 2.16.840.1.788421.3.579.2.462 Unknown [id number] 2.16.840.1.059662.3.579.2.462 Unknown [id number] 2.16.840.1.064426.3.579.2.462 Unknown [id number] 2.16.840.1.379259.3.579.2.462 Unknown [id number] 2.16.840.1.657644.3.579.2.462 Unknown [id number] 2.16.840.1.877597.3.579.2.462 Unknown [id number] 2.16.840.1.167292.3.579.2.462 Unknown [id number] 2.16.840.1.626275.3.579.2.462 Unknown [id number] 2.16.840.1.166883.3.579.2.462 Unknown [id number] 2.16.840.1.842087.3.579.2.462 Unknown [id number] 2.16.840.1.758695.3.579.2.462 Unknown [id number] 2.16.840.1.074273.3.579.2.462 Unknown [id number] 2.16.840.1.666893.3.579.2.462 Unknown [id number] 2.16.840.1.455211.3.579.2.462 Unknown [id number] 2.16.840.1.214595.3.579.2.462 Unknown [id number] 2.16.840.1.111221.3.579.2.462 Unknown [id number] 2.16840.1.716352.3.579.2.462 Unknown [id number] 2.16.840.1.188029.3.579.2.462 Unknown [id number] 2.16840.1.566939.3.579.2.462 Unknown [id number] 2.16.840.1.899298.3.579.2.462 Unknown [id number] 2.16840.1.801122.3.579.2.462 Unknown [id number] 2.16840.1.872701.3.579.2.462 Unknown [id number] 2.16840.1.859077.3.579.2.462 Unknown [id number] 2.16840.1.428749.3.579.2.462 Unknown [id number] 2.16840.1.989930.3.579.2.462 Social History Date Type Detail Facility Start: 07-24-2020 End: 09-25-2022 Tobacco smoking status UTIS Unknown if ever smoked [facility] Start: 04-16-2014 None [facility] Start: 12-02-2018 Non-smoker [facility] Start: 1945 Sex Assigned At Female [facility] Start: 07-31-2024 End: 01-05-2025 Tobacco smoking status NHIS Never smoked tobacco (finding) [facility] Not [facility] Medical Equipment Procedure Code Equipment Code Equipment Origin al Text Equipment Identifier Dates ([id number]) ()[id number] 7)[id number])[id number] FDA Start: 09-23-2022 ([id number]) ()[id number] 944(1 7)[id number])[id number] FDA Start: 09-23-2022 ([id number]) ()[id number] 491(1 7)[id number])[id number] FDA Start: 09-23-2022 ([id number]) ()[id number] 150(1 7)669009(10)[id number] FDA Start: 09-23-2022 ([id number]) [id number] 054(1 7)[id number] FDA Start: 10-16-2024 ()[id number] 691(1 7)[id number](10)[id number] FDA Start: 10-16-2024 (015609129) ()[id number] 793(1 7)[id number])[id number] FDA Start: 10-16-2024 (038450107) ()[id number] 061(1 7)563699(10)[id number] FDA Start: 10-16-2024 (561308940) ()[id number] 702(1 7)[id number](10)[id number] FDA Start: 10-16-2024 (919187621) ()[id number] 702(1 7)987010(10)[id number] FDA Start: 10-16-2024 (940501914) ()[id number] 664(1 7)[id number](10)[id number] FDA Start: 10-16-2024 [id number] 862(6 0)[id number])[id number] FDA Start: 10-16-2024 Goals Date Patient Goal Desired Activity /State Functional Status Date Assessment Result Facility 11-28-2024 Functional status Chair [facility] Work Phone: 11-27-2024 Functional status Standard Walker [facility] Work Phone: 11-01-2024 Functional status Bedrest [facility] Work Phone: 10-31-2024 Functional status Standard Walker [facility] Work Phone: 10-21-2024 Functional status Stand and pivot [facility] Work Phone: 10-14-2022 Functional status Activity Ability Indepe ndent [facility] Work Phone: 10-13-2022 Functional status Ambulates;[facility]: 10-12-2022 Functional status Tolerates Activity Well [facility] Work Phone: Mental Status Date Assessment Result Facility 11-28-2024 Cognitive function Voice/Name [facility] Work Phone: 11-18-2024 [facility]: 11-01-2024 Cognitive function Voice/Name [facility] Work Phone: 10-31-2024 Cognitive function Appropriate;Cooperativ e [facility] Work Phone: 10-21-2024 Cognitive function Voice/Name [facility] Work Phone: 10-14-2022 Cognitive function Voice/Name [facility] Work Phone: 10-07-2022 Cognitive function Appropriate [facility] Work Phone: Clinical Notes 07-10-2024 to 11-24-2024 Note Date & Type Note Facility 11-24-2024 Discharge summary Note Date/Time November 24, 2024 2:01pm [facility] Medical Records Department [address] [place] [address] Discharge Summary 11/24/24 1351 MR#: [id number] Acct: [id number] Name: BERNICE HASSAN Rep #:[id number] : 1945 79 From: Dago Emery MD PCP: Dr. Dago Emery MD Status:ADM I N Location: [place] [address] Providers Date of Admission: 10/21/24 Primary Care Physician: Dr. Dago Emery MD Consultations 10/31/24 07:27 Consult: Gastroenterology Routine Consulting Provider: [facility] Reason for Consult: Anemia, +Hemoccult. EMERGENT [...] BID for 1 month. Discharge 11/28/2024 to [facility], [facility], private pay, part B therapies. Physical [...] % (Auto) 64.5, Lymph % (Auto) 27.0, Petroleum % (Auto) 5.3, Eos % (Auto) 2.2, [...] instructions: No Additional Instructions: Discharge 11/28/2024 to [facility], intermediate, private pay, part B therapies. Please Follow Up With: JOEY POTTS (ORTHO) When: As scheduled. Meaningful Use Info Meaningful Use Meaningful Use Diagnoses (Choose all that apply): None applicable Discharge Plan Admission Admit Date/Time: 10/21/24 14:09 Primary Reason for Your Visit: Debility. Attending Provider: Dago Emery Chi Primary Care Provider: Dago Emery Chi Instructions Additional Instructions / Restrictions: Discharge 11/28/2024 to [facility], intermediate, private pay, part B therapies. [...] applicable): CC: Dr. Dago Emery MD~ Signed [facility] Work Phone: 1(442) 738-673909-05-2025 Discharge summary Author Dago Rupert [facility] Note Date/Time November 24, 2024 2:01pm [facility] Medical Records Department [address] [place] [address] [facility] Care MR#: [id number] Acct: [id number] Name: BERNICE HASSAN Rep #:[id number] : 1945 79 From: Dago Emery MD PCP: Dr. Dago Emery MD Status:ADM I N Certification of patient admission REQUIRED AT TIME OF ADMISSION. I CERTIFY THAT POST-HOSPITAL ECF SERVICES ARE REQUIRED TO BE GIVEN ON AN IN-PATIENT BASIS BECAUSE OF THE ABOVE NAMED PATIENT'S NEED FOR PENITENTIARY CARE ON A CONTINUING BASIS FOR THE CONDITION(S) FOR WHICH HE/SHE WAS RECEIVING IN-PATIENT HOSPITAL SERVICES PRIOR TO HIS/HER TRANSFER TO THE [facility]. 11/24/24 1401<Electronically signed by Dago Emery MD> [...] Dressing Change: Dry Sterile Dressing left upper acrpio: Wound Type: Surgical Incision left lower carpio: [...] Additional Instructions / Restrictions: Discharge 11/28/2024 to [facility], [facility], private pay, part B therapies. Discharge [...] applicable): CC: Dr. Dago Emery MD ~ [facility] Work Phone: 1(294) 126-573709-05-2025 Discharge summary [facility] Medical Records Department [address] [place] [address] Discharge Summary 11/24/24 1351 MR#: [id number] Acct: [id number] Name: BERNICE HASSAN Rep #:[id number] : 1945 79 From: Dago Emery MD PCP: Dr. Dago Emery MD Status:ADM I N Location: [place] [address] Providers Date of Admission: 10/21/24 Primary Care Physician: Dr. Dago Emery MD Consultations 10/31/24 07:27 Consult: Gastroenterology Routine Consulting Provider: [facility] Reason for Consult: Anemia, +Hemoccult. EMERGENT [...] BID for 1 month. Discharge 11/28/2024 to [facility], [facility], private pay, part B therapies. Physical [...] % (Auto) 64.5, Lymph % (Auto) 27.0, Petroleum % (Auto) 5.3, Eos % (Auto) 2.2, [...] instructions: No Additional Instructions: Discharge 11/28/2024 to [facility], intermediate, private pay, part B therapies. Please Follow Up With: JOEY POTTS (ORTHO) When: As scheduled. Meaningful Use Info Meaningful Use Meaningful Use Diagnoses (Choose all that apply): None applicable Discharge Plan Admission Admit Date/Time: 10/21/24 14:09 Primary Reason for Your Visit: Debility. Attending Provider: Dago Emery Chi Primary Care Provider: Dago Emery Chi Instructions Additional Instructions / Restrictions: Discharge 11/28/2024 to [facility], intermediate, private pay, part B therapies. [...] applicable): CC: Dr. Dago Emery MD~ Signed [facility]09-05-2025 Discharge summary [facility] Medical Records Department [address] [place] [address] Transfer to [facility] MR#: [id number] Acct: [id number] Name: BERNICE HASSAN Rep #:[id number] : 1945 79 From: Dago Emery MD PCP: Dr. Dago Emery MD Status:ADM I N Certification of patient admission REQUIRED AT TIME OF ADMISSION. I CERTIFY THAT POST-HOSPITAL F SERVICES ARE REQUIRED TO BE GIVEN ON AN IN-PATIENT BASIS BECAUSE OF THE ABOVE NAMED PATIENT'S NEED FOR PENITENTIARY CARE ON A CONTINUING BASIS FOR THE CONDITION(S) FOR WHICH HE/SHE WAS RECEIVING IN-PATIENT HOSPITAL SERVICES PRIOR TO HIS/HER TRANSFER TO THE [facility]. 11/24/24 1401 Diet Diet Order/Speech Therapy: INPATIENT [...] Additional Instructions / Restrictions: Discharge 11/28/2024 to [facility], [facility], private pay, part B therapies. Discharge [...] applicable): CC: Dr. Dago Emery MD ~ [facility]09-05-2025 [facility]08-25-2025 Progress note Author Dago Emery [facility] Note Date/Time November 13, 2024 7: 55pm [facility] Medical Records Department [address] [place] [address] Progress Note - [facility] 11/13/241948 MR#: [id number] Acct: [id number] Name: BERNICE HASSAN Rep #:[id number] : 1945 79 From: Dago Emery MD PCP: Dr. Dago Emery MD Status:ADM I N Location: [place] [address] Subjective Subjective Patient seen, examined for regulatory visit. She has no new complaints. She issitting in recliner with her left leg elevated. She appears bored. She is resigned to going to [facility] once insurances cuts her. 11/01/2024 Friend EGD: [...] Cosigner Signature (if applicable): CC: ~ Signed [facility] Work Phone: 1(308) 822-819708-25-2025 Progress note [facility] Medical Records Department [address] [place] [address] Progress Note - [facility] 11/13/241948 MR#: [id number] Acct: [id number] Name: BERNICE HASSAN Rep #:[id number] : 1945 79 From: Dago Emery MD PCP: Dr. Dago Emery MD Status:ADM I N Location: [place] [address] Subjective Subjective Patient seen, examined for regulatory visit. She has no new complaints. She issitting in recliner with her left leg elevated. She appears bored. She is resigned to going to [facility] once insurances cuts her. 11/01/2024 Dr. [...] Cosigner Signature (if applicable): CC: ~ Signed [facility]08-15-2025 Radiology Diagnostic study note [facility] Imaging Services [address] [place] [address] Ankle min 3 Views MR#: [id number] Acct: [id number] Name: HASSANBERNICE K Rep #: [id number] : 1945 F 79 From: Lynda Batres MD PCP: Dr. Dago Emery MD Status: ADM I N Study:Ankle min 3 Views Date of Exam: Exam# [id number] Ordering Dr: Grayson Rodriguez MD PROCEDURE: ANKLE [...] fracture deformity of distal fibula. Reading Location: [facility] CC: Dr. Geo Rodriguez MD; Dr. Dago Emeyr MD ~ Bait Man: Signed [facility]08-13-2025 Consult note [facility] Medical Records Department [address] [place] [address] Anesthesia Postop Eval II 11/01/24 1633 MR#: [id number] Acct: [id number] Name: BERNICE HASSAN Rep #:[id number] : 1945 79 From: Dinorah Headley VICE PRESIDENT OF ENGINEERING PCP: Dr. Dago Emery MD Status:REG S DC Y Race: C Location: [address] Anesthesia Postop Eval I Sum Postop Eval Completion status Anesthesia document: Postop Eval 1 completed: Yes Anesthesia Postop Eval I Summary Anesthesia Postop Eval I Summary: Anesthesia Postop Eval I: Assessment Summary Airway patent Yes 11/01/24 16:13 VICE PRESIDENT OF ENGINEERING.JBLOU Spontaneous unlabored Yes 11/01/24 16:13 VICE PRESIDENT [employer]INEERING.JBLOU respirations Mental status Awake,Calm 11/01/24 16:13 [employer]ICE [employer]IDENT [employer]INEER[employer].JBLOU nausea No 11/01/24 16:13 [employer]ICE [employer]IDENT [employer]INEER[employer].JBLOU Vomiting No 11/01/24 16:13 [employer]ICE [employer]IDENT [employer]INEER[employer].JBLOU Anesthesia Postop Eval I: Fluid Summary Crystalloid volume administer 200 11/01/24 16:13 VICE PRESIDENT OF ENGINEERING.JBLOU (ml) Colloids volume administered ( ml) Blood Product volume administered (ml) Total IV fluid infused 200 11/01/24 16:13 VICE PRESIDENT OF ENGINEERING.JBLOU Anesthesia Postop Eval I: Summary Notes Anesthesia Complication No 11/01/24 16:13 VICE PRESIDENT OF ENGINEERING.JBLOU Anesthesia Complication Comment: Post-operative progress note Anesthesia: Postop Eval II Evaluation Mental status: Awake Pain Level: 0 nausea: No Vomiting: No 11/01/24 1633 a [employer]ICE PRESIDENT OF ENGINEERING> Date _ Dinorah Headley VICE PRESIDENT OF ENGINEERING Cosigner Signature: Date CC: ~ Signed [facility]08-13-2025 Procedure note [facility] Medical Records Department [address] [place] [address] [place] [address] EGD Report MR#: [id number] Acct: [id number] Name: BERNICE HASSAN Rep #:[id number] : 1945 79 From: Pio Webb DO [...] present medications. Procedure Code(s): --- Professional --- 70869, Small intestinal endoscopy, enteroscopy beyond second portion of duodenum, not including ileum; with biopsy, single or multiple CPT copyright 2021 [employer]. All rights reserved. The codes documented in this report are preliminary and upon guest experience specialist review may be revised to meet current compliance requirements. Pio Webb DO 11/01/2024 4:13:52 PM This report has been signed electronically. Number of Addenda: 0 Note Initiated On: 11/01/2024 3:55 PM 11/01/24 1614 Date _ Pio Webb DO Cosigner Signature: Date (if indicated) CC: Dr. Dago Emery MD; Pio Webb DO ~ Date Dictated: 11/01/24 8937 Date Transcribed: Bait Man: GOKUL Signed [facility]08-13-2025 Procedure note [facility] Medical Records Department [address] [place] [address] Provation Physician Letter MR#: [id number] Acct: [id number] Name: BERNICE HASSAN Rep #:[id number] : 1945 79 From: Pio Webb DO PCP: Dr. Dago Emery MD Status:REG S DC 11/01/2024 Dago Emery MD [address] [place] [address] Re : Upper GI endoscopy procedure for Bernice Hassan Dear Dr. Emery This procedure was performed on Wednesday, November 01, 2024. My impressions and recommendations [...] Pio Webb DO ~ Date Dictated: 11/01/24 1748 Date Transcribed: Bait Man: RF Signed [facility]08-13-2025 Consult note [facility] Medical Records Department [address] [place] [address] Anesthesia Postop Eval I 11/01/24 1613 MR#: [id number] Acct: [id number] Name: BERNICE HASSAN Rep #:[id number] : 1945 79 From: Franklyn CHAMBERS PCP: Dr. Dago Emery MD Status:REG S DC Y Race: C Location: [address] Anesthesia: Postop Eval I Current Vital Signs [...] Postop Eval 1 completed: Yes 11/01/24 161 VICE PRESIDENT OF ENGINEERING> Date _ Franklyn Lopez VICE PRESIDENT OF ENGINEERING Cosigner Signature: Date CC: ~ Signed [facility]08-13-2025 Consult note [facility] Medical Records Department [address] [place] [address] Pre-Anesthesia Evaluation 11/01/24 1539 MR#: [id number] Acct: [id number] Name: BERNICE HASSAN Rep #:[id number] : 1945 79 From: Avery Crocker PCP: Dr. Dago Emery MD Status:REG S DC Y Race: C Location: [address] ASA Classification* ASA Classification ASA Classification: 3 [...] 05:10/27/24 RBC 2.16 M/mm3 (4.2-5.4) L 10/27/24 05:10/27/24 Hgb 8.4 g/dL (12.0-15.0) L 10/31/24 06:55 [...] Procedure(s): EGD Anesthesia History Anesthesia History - form setter helper: Anesthesia History - form setter helper Hx Hospitalization Yes 11/01/24 15:07 Any Problems [...] take am of surgery PONV PONV - form setter helper: PONV - form setter helper Female Yes 11/01/24 15:07 HX of Motion [...] 11/01/24 15:07 Respiratory Assessment Respiratory Assessment - form setter helper: Respiratory Tract Infection Hx - form setter helper Hx Respiratory Tract Infection No 11/01/24 15:07 STOP Sleep Apnea STOP Sleep Apnea - form setter helper: STOP Sleep Apnea - form setter helper Hx Hypertension Yes 11/01/24 15:07 Hx Sleep [...] Tobacco Use History Tobacco Use History - form setter helper: Tobacco Use History - form setter helper Tobacco Use Smoking Status Never smoker 11/01/24 15:07 Hx Tobacco Use No 11/01/24 15:07 Years Smoking Packs Smoked per Day Smoking Cessation Date was within the last 15 years Hx Smoking Cessation Date Hx Smoking Cessation Counseling Hematologic Medial History Hematologic Hx - form setter helper: Hematologic Medical Hx - immunohematologist Hx of Blood Transfusion No 11/01/24 15:07 [...] confused, unrespo /Reproduction History /Reproductive History - form setter helper: /Reproductive Hx- form setter helper Hx Now Gestational Age (in weeks): EDC: [...] surgery Social History [facility] members[facility] Smoking Status: Never smoker second hand exposure: No alcohol intake: never substance use type: does not use justice/voodoo: Roman [employer] seatbelt use: always do you feel safe at home: Yes Review of Systems (Anesthesia) ROS Narrative System reviewed and no additional complaints, except as documented. 11/01/24 1603 MD> Date _ Avery Rod MD Cosigner Signature: Date CC: ~ Signed [facility]08-13-2025 History and physical note [facility] Medical Records Department [address] [place] [address] History & Physical Exam 11/01/24 1523 MR#: [id number] Acct: [id number] Name: BERNICE HASSAN Rep #:[id number] : 1945 79 From: Pio Friend DO PCP: Dr. Dago Emery MD Status:REG S DC Location: [place] [address] HPI - General General Date of Admission: [...] part of recently but thelast 5 years. [facility] Medical History Cardiology follow-up encounter Wears [...] never substance use type: does not use justice/voodoo: Roman [employer] seatbelt use: always do you feel safe [...] Dago Emery MD; Pio Webb DO~ Signed [facility]08-13-2025 [facility] Consult note Author Pio Webb [facility] Note Date/Time October 31, 2024 9: 58am [facility] Medical Records Department [address] [place] [address] Consultation - GI 10/31/24 0951 MR#: [id number] Acct: [id number] Name: BERNICE HASSAN Rep #:[id number] : 1945 79 From: Pio Webb DO PCP: Dr. Dago Emery MD Status:ADM I N Location: [place] [address] HPI Consult Data Date of Consult: 10/31/24 [...] part of recently but thelast 5 years. [facility] Medical History Cardiology follow-up encounter Wears [...] surgery Social History [facility] members[facility] Smoking Status: Never smoker second hand exposure: No alcohol intake: never substance use type: does not use justice/voodoo: Roman Catholic seatbelt use: always do you feel safe [...] ASA 3. Charges/Coding Visit Charges Inpatient E&M: 92360 SNF Init L2 10/31/24 0958 <Electronically signed by Pio Webb DO> Cosigner Signature (if applicable): CC: Dr. Dago Emery MD~ Signed [facility] Work Phone: 1(638) 878-310608-12-2025 Radiology Diagnostic study note [facility] Imaging Services [address] [place] [address] Ankle min 3 Views MR#: [id number] Acct: [id number] Name: BERNICE HASSAN Rep #: [id number] : 1945 F 79 From: Kaushik Bacon MD PCP: Dr. Dago Emery MD Status: ADM I N Study:Ankle min 3 Views Date of Exam: Exam# [id number] Ordering Dr: Dago Emery MD PROCEDURE: ANKLE [...] to prior. Likely subacute injury Reading Location: [facility] CC: Dr. Dago Emery MD ~ Bait Man: Signed [facility]08-12-2025 Radiology Diagnostic study note [facility] Imaging Services [address] [place] [address] Knee 1 or 2 Views MR#: [id number] Acct: [id number] Name: BERNICE HASSAN Rep #: [id number] : 1945 F 79 From: Antonio Caballero MD PCP: Dr. 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 There isgood alignment. 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 There is good alignment. Reading Location: [place] [address] CC: Dr. Dago Emery MD ~ Bait Man: Signed [facility]08-12-2025 Consult note [facility] Medical Records Department [address] [place] [address] Consultation - GI 10/31/24 0951 MR#: [id number] Acct: [id number] Name: BERNICE HASSAN Rep #:[id number] : 1945 79 From: Pioleoncio Webb DO PCP: Dr. Dago Emery MD Status:ADM I N Location: [facility] TC5 HPI Consult Data Date of Consult: 10/31/24 HPI Narrative Reason for Consultation: Anemia HPI Narrative: BERNICE HSASAN, is a 79 F who is currently [...] part of recently but thelast 5 years. [facility] Medical History Cardiology follow-up encounter Wears [...] surgery Social History [facility] members: [facility] Smoking Status: Never smoker second hand exposure: No alcohol intake: never substance use type: does not use justice/voodoo: Roman Catholic seatbelt use: always do you feel safe [...] ASA 3. Charges/Coding Visit Charges Inpatient E&M: 11276 SNF Init L2 10/31/24 0958 Cosigner Signature (if applicable): CC: Dr. Dago Emery MD~ Signed [facility]08-05-2025 History and physical note Author Dago Rupert [facility] Note Date/Time October 24, 2024 5:2 8pm [facility] Medical Records Department [address] [place] [address] History & Physical Exam 10/21/24 1747 MR#: [id number] Acct: [id number] Name: BERNICE HASSAN Rep #:[id number] : 1945 79 From: Dago Emery MD PCP: Dr. Dago Emery MD Status:ADM I N Location: [place] [address] HPI - General General Date of Admission: 10/21/24 Date of Service: 10/23/24 Chief Complaint: Here for rehabilitation. HPI Narrative BERNICE HASSAN, is a 79 Female who presents with followin10/16/2024 Admit [facility]. 10/16/2024 Dr. Rodriguez performed left total [...] rehabilitation, strengthening, prior to discharge home alone. [facility] Medical History (Updated 10/21/24 @ 17:54 [...] never substance use type: does not use justice/voodoo: Roman Catholic seatbelt use: always do you feel safe [...] medication treatment. Please see nursing documentation. 10/24/24 172<Electronically signed by Dago Emery MD> Cosigner Signature (if applicable): cc: Dr. Dago Emery MD ~* Signed [facility] Work Phone: 1(507) 271-842508-05-2025 History and physical note [facility] Medical Records Department [address] [place] [address] History & Physical Exam 10/21/24 1747 MR#: [id number] Acct: [id number] Name: BERNICE HASSAN Rep #:[id number] : 1945 79 From: Dago Emery MD PCP: Dr. Dago Emery MD Status:ADM I N Location: [facility] TCU15-1 HPI - General General Date of Admission: 10/21/24 Date of Service: 10/23/24 Chief Complaint: Here for rehabilitation. HPI Narrative BERNICE HASSAN, is a 79 Female who presents with followin10/16/2024 Admit [facility]. 10/16/2024 Dr. Rodriguez performed left total [...] rehabilitation, strengthening, prior to discharge home alone. [facility] Medical History (Updated 10/21/24 @ 17:54 [...] surgery Social History [facility] members: [facility] Smoking Status: Never smoker second hand exposure: No alcohol intake: never substance use type: does not use justice/voodoo: Roman Catholic seatbelt use: always do you feel safe [...] cc: Dr. Dago Emery MD ~* Signed [facility]08-04-2025 Progress note Author Freddie Camreon [facility] Note Date/Time October 23, 2024 3:1 4pm [facility] Medical Records Department [address] [place] [address] Progress Note - Pharmacy 10/23/24 1439 MR#: [id number] Acct: [id number] Name: BERNICE HASSAN Rep #:[id number] : 1945 79 From: Freddie Cameron PCP: Dr. Dago Emery MD Status:ADM I N Location: [place] [address]9525- Documented by User: Freddie Cameron 10/23/24 14:58 [...] 50 Mg Tablet PO 50 mg DAILY@0800 [facility] Administration Protocol Cholecalciferol 25 mcg 10/22/24 10:00 [...] 325 Mg Tablet PO Not Given 1200,1700 [facility] Folic Acid 1 mg 10/22/24 08:00 10/23/24 09:34 Folic Acid 1 Mg Tablet PO 1 mg BREAKFAST [facility] Administration Hydroxyurea 1,000 mg 10/23/24 10:00 10/23/24 09:35 Hydroxyurea 500 Mg Capsule PO 1,000 mg MoTuThFrSa@1000 [facility] Administration Levothyroxine Sodium 50 mcg 10/22/24 06:00 10/23/24 05:44 Levothyroxine 50 Mcg Tablet PO 50 mcg DAILY@0600 [facility] Administration Losartan Potassium 100 mg 10/22/24 10:00 10/23/24 09:34 Losartan Potassium 100 Mg Tablet PO 100 mg DAILY [facility] Administration Protocol Magnesium Citrate 300 ml 10/21/24 [...] Sodium 1 Tablet PO 2 tablet BID [facility] Administration Tuberculin PPD 0.1 ml 10/29/24 10:00 [...] Comments to Recommendations by Pharmacy Agree 10/23/24 1450 <Electronically signed by Freddie Cameron> Freddie Cameron Cosigner Signature (if applicable): 10/23/24 1514 <Electronically signed by Dago Emery MD> CC: ~ Signed [facility] Work Phone: 1(670) 549-605908-04-2025 Progress note [facility] Medical Records Department [address] [place] [address] Progress Note - Pharmacy 10/23/24 1439 MR#: [id number] Acct: [id number] Name: BERNICE HASSAN Rep #:[id number] : 1945 79 From: Freddie Cameron PCP: Dr. Dago Emery MD Status:ADM I N Location: [place] [address] Documented by User: Freddie Cameron 10/23/24 14:58 [...] 500 Mg Tablet PO 500 mg Q8 [facility] Administration Amlodipine Besylate 5 mg 10/22/24 10:00 10/23/24 09:35 Amlodipine 5 Mg Tablet PO 5 mg DAILY [facility] Administration Protocol Aspirin 81 mg 10/21/24 17:00 10/23/24 09:34 Aspirin 81 Mg Tab.Chew PO 11/18/24 17:01 81 mg BIDCM [facility] Administration Atenolol 50 mg 10/22/24 08:00 10/23/24 09:34 Atenolol 50 Mg Tablet PO 50 mg DAILY@0800 [facility] Administration Protocol Cholecalciferol 25 mcg 10/22/24 10:00 10/23/24 09:36 Cholecalciferol (Vit D3) 25 Mcg Tablet (1,000 Units) PO 25 mcg DAILY [facility] Administration Doxycycline Monohydrate 100 mg 10/21/24 22:00 10/23/24 09:35 Doxycycline 100 Mg Capsule PO 10/30/24 22:01 100 mg BID [facility] Administration Famotidine 20 mg 10/22/24 10:00 10/23/24 09:35 Famotidine 20 Mg Tablet PO 20 mg DAILY [facility] Administration Ferrous Sulfate 325 mg 10/21/24 17:00 10/22/24 16:36 Ferrous Sulfate 325 Mg Tablet PO Not Given 1200,1700 [facility] Folic Acid 1 mg 10/22/24 08:00 10/23/24 09:34 Folic Acid 1 Mg Tablet PO 1 mg BREAKFAST [facility] Administration Hydroxyurea 1,000 mg 10/23/24 10:00 10/23/24 09:35 Hydroxyurea 500 Mg Capsule PO 1,000 mg MoTuThFrSa@1000 [facility] Administration Levothyroxine Sodium 50 mcg 10/22/24 06:00 [...] 1458 Freddie Germain Signature (if applicable): 10/23/24 8315 CC: ~ Signed [facility]08-02-2025 [facility] Discharge summary Author Nela Rodrigo [facility] Note Date/Time October 21, 2024 11: 05am [facility] Medical Records Department [address] [place] [address] Discharge Summary 10/21/24 1100 MR#: [id number] Acct: [id number] Name: BERNICE HASSAN Rep #:[id number] : 1945 79 From: Nela CORNELIUS PCP: Dr. Dago Emery MD Status:ADM I N Location: [place] [address] Providers Date of Admission: 10/18/24 Primary Care Physician: Dr. Dago Emery MD Consultations 10/16/24 14:53 Consult: Hospitalist Routine Consulting Provider: [facility] Reason for Consult: post op [...] feel patient is ready for discharge to prison facility. Patient states that she feels much [...] % (Auto) 54.7, Lymph % (Auto) 27.2, Petroleum % (Auto) 15.2 H, Eos % (Auto) [...] Profile (BMP) (Routine) Timeframe: 1 Week Facility: [facility] - Location: Laboratory Ordered By: Nela [place] CBC W/Diff, Automated (Routine) Timeframe: 1 Week Facility: [facility] - Location: Laboratory Ordered By: Nela [place] Referrals / Follow Up: Dago Emery Chi, MD [Primary Care Provider] - Disposition Disposition (needs filled in before D/C Order can be placed): Inpatient Rehab Unit/Facility 10/21/24 1105 <Electronically signed by Nela CORNELIUS> Cosigner Signature (if applicable): CC: ADRYAN Holland; Dr. Dago Emery MD~ Signed [facility] Work Phone: 1(521) 696-747708-02-2025 Discharge summary Author Nela Wallace [facility] Note Date/Time October 21, 2024 10: 59am [facility] Medical Records Department [address] [place] [address] [facility] Care MR#: [id number] Acct: [id number] Name: BERNICE HASSAN Rep #:[id number] : 1945 79 From: Nela CORNELIUS PCP: Dr. Dago Emery MD Status:ADM I N Certification of patient admission REQUIRED AT TIME OF ADMISSION. I CERTIFY THAT POST-HOSPITAL ECF SERVICES ARE REQUIRED TO BE GIVEN ON AN IN-PATIENT BASIS BECAUSE OF THE ABOVE NAMED PATIENT'S NEED FOR PENITENTIARY CARE ON A CONTINUING BASIS FOR THE CONDITION(S) FOR WHICH HE/SHE WAS RECEIVING IN-PATIENT HOSPITAL SERVICES PRIOR TO HIS/HER TRANSFER TO THE ECF. 10/21/24 1059<Electronically signed by Nela CORNELIUS> Diet [...] feel patient is ready for discharge to prison facility. Patient states that she feels much [...] Dago Emery Chi Consulting Providers: Sofia Carvajal; Koram,Juliane Shantal Discharge Orders/Prescriptions Prescriptions: New acetaminophen 500 mg [...] Profile (BMP) (Routine) Timeframe: 1 Week Facility: [facility] - Location: Laboratory Ordered By: Nela [place] CBC W/Diff, Automated (Routine) Timeframe: 1 Week Facility: [facility] - Location: Laboratory Ordered By: Nela Wallace Referrals / Follow Up: Dago Emery Chi, MD [Primary Care Provider] - Disposition Disposition (needs filled in before D/C Order can be placed): Inpatient Rehab Unit/Facility 10/21/24 1059 <Electronically signed by Nela CORNELIUS> Cosigner Signature (if applicable): CC: Dr. Juliane Villa MD; Dr. Sofia Carvajal MD; Dr. Dago Emery MD ~ [facility] Work Phone: 1(438) 521-923808-02-2025 Progress note Author Nela [facility] Note Date/Time October 21, 2024 10: 33am [facility] Medical Records Department [address] [place] [address] Progress Note - Orthopedic 10/21/24 1022 MR#: [id number] Acct: [id number] Name: BERNICE HASSAN Rep #:[id number] : 1945 79 From: Nela CORNELIUS PCP: Dr. Dago Emery MD Status:ADM I N Location: [facility]3 XR530-0 Subjective Subjective Patient is sitting comfortably in [...] % (Auto) 54.7, Lymph % (Auto) 27.2, Petroleum % (Auto) 15.2 H, Eos % (Auto) [...] feel patient is ready for discharge to prison facility. Patient states that she feels much [...] Cosigner Signature (if applicable): CC: ~ Signed [facility] Work Phone: 1(461) 482-285608-02-2025 Discharge summary [facility] Medical Records Department [address] [place] [address] [place] [address] Discharge Summary 10/21/24 1100 MR#: [id number] Acct: [id number] Name: BERNICE HASSAN Rep #:[id number] : 1945 79 From: Nela CORNELIUS PCP: Dr. Dago Emery MD Status:ADM I N [place] [facility] Providers Date of Admission: 10/18/24 Primary Care Physician: Dr. Dago Emery MD Consultations 10/16/24 14:53 Consult: Hospitalist Routine Consulting Provider: [facility] Reason for Consult: post op med management [...] feel patient is ready for discharge to prison facility.Patient states that she feels much more [...] % (Auto) 54.7, Lymph % (Auto) 27.2, Petroleum % (Auto) 15.2 H, Eos % (Auto) [...] Profile (BMP) (Routine) Timeframe: 1 Week Facility: [facility] - Location: Laboratory Ordered By: Nela [place] CBC W/Diff, Automated (Routine) Timeframe: 1 Week Facility: [facility] - Location: Laboratory Ordered By: Nela Wallace Referrals / Follow Up: Dago Emery Chi, MD [Primary Care Provider] - Disposition Disposition (needs filled in before D/C Order can be placed): Inpatient Rehab Unit/Facility 10/21/24 1105 Cosigner Signature (if applicable): CC: ADRYAN Holland; Dr. Dago Emery MD~ Signed [facility]08-02-2025 [facility] Discharge summary [facility] Medical Records Department [address] [place] [address] Transfer to [facility] MR#: [id number] Acct: [id number] Name: BERNICE HASSAN Rep #:[id number] : 1945 79 From: Nela CORNELIUS PCP: Dr. Dago Emery MD Status:ADM I N Certification of patient admission REQUIRED AT TIME OF ADMISSION. I CERTIFY THAT POST-HOSPITAL ECF SERVICES ARE REQUIRED TO BE GIVEN ON AN IN-PATIENT BASIS BECAUSE OF THE ABOVE NAMED PATIENT'S NEED FOR PENITENTIARY CARE ON A CONTINUING BASIS FOR THE CONDITION(S) FOR WHICH HE/SHE WAS RECEIVING IN-PATIENT HOSPITAL SERVICES PRIOR TO HIS/HER TRANSFER TO THE [facility]. 10/21/24 1059 Diet Diet Order/Speech Therapy: INPATIENT [...] feel patient is ready for discharge to prison facility.Patient states that she feels much more [...] Profile (BMP) (Routine) Timeframe: 1 Week Facility: [facility] - Location: Laboratory Ordered By: Nela Wallace CBC W/Diff, Automated (Routine) Timeframe: 1 Week Facility: [facility] - Location: Laboratory Ordered By: Nela Wallace Referrals / Follow Up: Dago Emery Chi, MD [Primary Care Provider] - Disposition Disposition (needs filled in before D/C Order can be placed): Inpatient Rehab Unit/Facility 10/21/24 1059 Cosigner Signature (if applicable): CC: Dr. Juliane Villa MD; Dr. Sofia Carvajal MD; Dr. Dago Emery MD ~ [facility]08-02-2025 Progress note [facility] Medical Records Department [address] [place] [address] Progress Note - Orthopedic 10/21/24 1022 MR#: [id number] Acct: [id number] Name: BERNICE HASSAN Rep #:[id number] : 1945 79 From: Nela CORNELIUS PCP: Dr. Dago Emery MD Status:ADM I N Location: [facility] NI712-3 Subjective Subjective Patient is sitting comfortably in [...] % (Auto) 54.7, Lymph % (Auto) 27.2, Petroleum % (Auto) 15.2 H, Eos % (Auto) [...] feel patient is ready for discharge to prison facility.Patient states that she feels much more [...] Cosigner Signature (if applicable): CC: ~ Signed [facility]08-01-2025 Progress note Author Sofia Carvajal [facility] Note Date/Time October 20, 2024 4:4 6pm [facility] Medical Records Department [address] [place] [address] Progress Note - Hospitalist 10/20/24 1640 MR#: [id number] Acct: [id number] Name: BERNICE HASSAN Rep #:[id number] : 1945 79 From: Sofia Carvajal MD PCP: Dr. Dago Emery MD Status:ADM I N Location: [facility]3 JG406-8 Subjective Subjective Initially this morning patient complaining [...] 2 10/20/24 14:10/20/24 14:10/20/24 14:10/20/24 14:10/20/24 14:10/20/24 14:10/16/24 22:13 Oxygen Flow Rate (L/min) 2 Oxygen [...] 17.8, Glucose 82, Calcium 8.3 Micro: Microbiology 07/23/25 14:20 Nasal Secretion Nasal Screen MRSA/MSSA - [...] per Ortho Charges/Coding Visit Charges Inpatient E&M: 00276 Subs Hosp L1 10/20/24 1646 <Electronically signed by Sofia Carvajal MD> Cosigner Signature (if applicable): CC: ~ Signed [facility] Work Phone: 1(141) 784-889208-01-2025 Progress note [facility] Medical Records Department [address] [place] [address] Progress Note - Hospitalist 10/20/24 1640 MR#: [id number] Acct: [id number] Name: BERNICE HASSAN Rep #:[id number] : 1945 79 From: Sofia Carvajal MD PCP: Dr. Dago Emery MD Status:ADM I N Location: [place] [address] Subjective Subjective Initially this morning patient complaining [...] Room Air 2 10/20/24 14:10/20/24 14:10/20/24 14:10/20/24 14:07 10/20/24 14:10/20/24 14:10/16/24 22:13 Oxygen Flow Rate (L/min) 2 Oxygen [...] per Ortho Charges/Coding Visit Charges Inpatient E&M: 77342 Subs Hosp L1 10/20/24 1646 Cosigner Signature (if applicable): CC: ~ Signed [facility]08-01-2025 Progress note Author Nela Wallace [facility] Note Date/Time October 20, 2024 11: 56am [facility] Medical Records Department [address] [place] [address] Progress Note - Orthopedic 10/20/24 1144 MR#: [id number] Acct: [id number] Name: BERNICE HASSAN Rep #:[id number] : 1945 79 From: Nela CORNELIUS PCP: Dr. Dago Emery MD Status:ADM I N Location: [facility]3 ME912-1 Subjective Subjective Patient is sitting comfortably in [...] feel patient is ready for discharge to prison facility at this time. Due to the [...] Cosigner Signature (if applicable): CC: ~ Signed [facility] Work Phone: 1(455) 195-102208-01-2025 Progress note [facility] Medical Records Department [address] [place] [address] Progress Note - Orthopedic 10/20/24 1144 MR#: [id number] Acct: [id number] Name: BERNICE HASSAN Rep #:[id number] : 1945 79 From: Nela CORNELIUS PCP: Dr. Dago Emery MD Status:ADM I N Location: [facility] RE506-8 Subjective Subjective Patient is sitting comfortably in [...] feel patient is ready for discharge to prison facility at this time. Due to the [...] Cosigner Signature (if applicable): CC: ~ Signed [facility]07-31-2025 Progress note Author Landen Potts [facility] Note Date/Time October 19, 2024 1:45 pm [facility] Medical Records Department [address] [place] [address] Progress Note - Orthopedic 10/19/24 1306 MR#: [id number] Acct: [id number] Name: BERNICE HASSAN Rep #:[id number] : 1945 79 From: Landen CORNELIUS PA-C PCP: Dr. Dago Emery MD Status:ADM I N Location: [place] [address] Subjective Subjective The patient was sitting in [...] (Auto) 66.7, Lymph % (Auto) 14.4 L, Petroleum % (Auto) 17.1 H, Eos % (Auto) [...] intramedullary nailing of the tibia. Reading Location: [facility] Physical Exam Narrative Vital signs [...] feel patient is ready for discharge to prison facility. Due to the acute distal tibia [...] Cosigner Signature (if applicable): CC: ~ Signed [facility] Work Phone: 1(649) 557-282907-31-2025 Progress note [facility] Medical Records Department [address] [place] [address] Progress Note - Orthopedic 10/19/24 1306 MR#: [id number] Acct: [id number] Name: BERNICE HASSAN Rep #:[id number] : 1945 79 From: Landen CORNELIUS PA-C PCP: Dr. Dago Emery MD Status:ADM I N Location: [place] [address] Subjective Subjective The patient was sitting in [...] (Auto) 66.7, Lymph % (Auto) 14.4 L, Petroleum % (Auto) 17.1 H, Eos % (Auto) [...] intramedullary nailing of the tibia. Reading Location: [facility] Physical Exam Narrative Vital signs [...] weightbearing for 6 weeks postoperatively. 6. H&H: 9./.6. At this point due to patient's hemoglobin [...] feel patient is ready for discharge to prison facility. Due to the acute distal tibia [...] Cosigner Signature (if applicable): CC: ~ Signed [facility]07-30-2025 Radiology Diagnostic study note [facility] Imaging Services [address] [place] [address] Knee 1 or 2 Views MR#: [id number] Acct: [id number] Name: BERNICE HASSAN Rep #: [id number] : 1945 F 79 From: Antonio Caballero MD PCP: Dr. Dago Emery MD Status: ADM I N Study:Knee 1 or 2 Views Date of Exam: Exam# [id number] Ordering Dr: Grayson Rodriguez MD PROCEDURE: KNEE [...] intramedullary nailing of the tibia. Reading Location: [id number] CC: Dr. Geo Rodriguez MD; Dr. Dago Emery MD ~ Bait Man: Signed [facility]07-30-2025 Progress note Author See Valente [facility] Note Date/Time October 18, 2024 10:2 8am [facility] Medical Records Department [address] [place] [address] Progress Note - Hospitalist 10/18/24 1015 MR#: [id number] Acct: [id number] Name: BERNICE HASSAN Rep #:[id number] : 1945 79 From: See ko MD PCP: Dr. Dago Emery MD Status:ADM I NO Location: [facility]3 ES345-0 Subjective Subjective Had a transient episode of [...] 73.5 H, Lymph % (Auto) 11.1 L, Petroleum % (Auto) 14.6 H, Eos % (Auto) [...] extension appreciated. Congruent ankle mortise. Reading Location: [facility] Lower Extremity CT 10/17/24 21:42 IMPRESSION: Acute distal tibial meta diaphyseal junction fracture, no extension to the articular surface. No acute distal fibular fracture associated. No dislocation. Reading Location: [place] [address] Physical Exam Narrative General: Alert, Oriented x3, [...] per Ortho Charges/Coding Visit Charges Inpatient E&M: 03877 Subs Hosp L2 10/18/24 1024 <Electronically signed by See Valente MD> Cosigner Signature (if applicable): CC: ~ Signed [facility] Work Phone: 1(874) 951-116307-30-2025 Progress note Author Nela Wallace [facility] Note Date/Time October 18, 2024 8:38 am [facility] Medical Records Department [address] [place] [address] Progress Note - Orthopedic 10/18/24 0826 MR#: [id number] Acct: [id number] Name: BERNICE HASSAN Rep #:[id number] : 1945 79 From: Nela CORNELIUS PCP: Dr. Dago Emery MD Status:ADM I NO Location: [address] Subjective Subjective Patient is anxious and down [...] 73.5 H, Lymph % (Auto) 11.1 L, Petroleum % (Auto) 14.6 H, Eos % (Auto) [...] extension appreciated. Congruent ankle mortise. Reading Location: [id number] Lower Extremity CT 10/17/24 21:42 IMPRESSION: Acute distal tibial meta diaphyseal junction fracture, no extension to the articular surface. No acute distal fibular fracture associated. No dislocation. Reading Location: [place] [address] Physical Exam Narrative JUDE hose in place [...] Cosigner Signature (if applicable): CC: ~ Signed [facility] Work Phone: 1(645) 698-667107-30-2025 Progress note [facility] Medical Records Department [address] [place] [address] Progress Note - Hospitalist 10/18/24 1015 MR#: [id number] Acct: [id number] Name: BERNICE HASSAN Rep #:[id number] : 1945 79 From: See ko MD PCP: Dr. Dago Emery MD Status:ADM I NO Location: [place] [address] Subjective Subjective Had a transient episode of [...] 73.5 H, Lymph % (Auto) 11.1 L, Petroleum % (Auto) 14.6 H, Eos % (Auto) [...] extension appreciated. Congruent ankle mortise. Reading Location: [id number] Lower Extremity CT 07/29/25 21:42 IMPRESSION: Acute distal tibial meta diaphyseal junction fracture, no extension to the articular surface. No acute distal fibular fracture associated. No dislocation. Reading Location: [place] [address] Physical Exam Narrative General: Alert, Oriented x3, [...] per Ortho Charges/Coding Visit Charges Inpatient E&M: 45773 Subs Hosp L2 10/18/24 1028 Cosigner Signature (if applicable): CC: ~ Signed [facility]07-30-2025 Progress note [facility] Medical Records Department [address] [place] [address] Progress Note - Orthopedic 10/18/2426 MR#: [id number] Acct: [id number] Name: BERNICE HASSAN Rep #:[id number] : 1945 79 From: Nela CORNELIUS PCP: Dr. Dago Emery MD Status:ADM I NO Location: MS3 ZG405-7 Subjective Subjective Patient is anxious and down [...] 73.5 H, Lymph % (Auto) 11.1 L, Petroleum % (Auto) 14.6 H, Eos % (Auto) [...] extension appreciated. Congruent ankle mortise. Reading Location: [facility] Lower Extremity CT 10/17/24 21:42 IMPRESSION: Acute distal tibial meta diaphyseal junction fracture, no extension to the articular surface. No acute distal fibular fracture associated. No dislocation. [facility] Physical Exam Narrative JUDE hose in place [...] Cosigner Signature (if applicable): CC: ~ Signed [facility]07-29-2025 Radiology Diagnostic study note [facility] Imaging Services [address] [place], [place] [address] Extremity Lower without Contra MR#: [id number] Acct: [id number] Name: BERNICE HASSAN Rep #: [id number] : 1945 F 79 From: Saida Osman MD PCP: Dr. Dago Emery MD Status: ADM I NO Study:Extremity Lower without Contra Date of Exam: 10/17/24 Exam# [id number] Ordering Dr: Bharathi Wallace PROCEDURE: EXTREMITY LOWER [...] fibular fracture associated. No dislocation. Reading Location: [place] [address] CC: ADRYAN Holland; Dr. Dago Emery MD ~ Bait Man: Signed [facility]07-29-2025 Radiology Diagnostic study note [facility] Imaging Services [address] [place] [address] Ankle min 3 Views MR#: [id number] Acct: [id number] Name: BERNICE HASSAN Rep #: [id number] : 1945 F 79 From: Yoshi Montes MD PCP: Dr. Dago Emery MD Status: ADM I NO Study:Ankle min 3 Views Date of Exam: Exam# [id number] Ordering Dr: Bharathi Wallace PROCEDURE: LEFT ANKLE [...] extension appreciated. Congruent ankle mortise. Reading Location: [id number] CC: ADRYAN Holland; Dr. Dago Emery MD ~ Bait Man: Signed [facility]07-29-2025 Progress note Author Nela Wallace [facility] Note Date/Time October 17, 2024 4:03 pm [facility] Medical Records Department [address] [place] [address] Progress Note - Orthopedic 10/17/24 1554 MR#: [id number] Acct: [id number] Name: BERNICE HASSAN Rep #:[id number] : 1945 79 From: Nela CORNELIUS PCP: Dr. Dago Emery MD Status:ADM I NO Location: KS3 BT333-6 Subjective Subjective Patient appears to be comfortable [...] hardware and expected postop changes. Reading Location: [id number]-BG Physical Exam Narrative JUDE hose in place [...] we will plan to discharge patient to [facility]. Patientwas educated she can continue [...] Cosigner Signature (if applicable): CC: ~ Signed [facility] Work Phone: 1(960) 963-536707-29-2025 Progress note [facility] Medical Records Department [address] [place] [address] Progress Note - Orthopedic 10/17/24 1554 MR#: [id number] Acct: [id number] Name: BERNICE HASSAN Rep #:[id number] : 1945 79 From: Nela CORNELIUS PCP: Dr. Dago Emery MD Status:ADM I NO Location: [place] [address]-1 Subjective Subjective Patient appears to be comfortable [...] hardware and expected postop changes. Reading Location: [id number]-MM Physical Exam Narrative JUDE hose in place [...] we will plan to discharge patient to [facility]. Patientwas educated she can continue to take her Zofran as needed for nausea and vomiting. Patient will need to get physical therapy done in the TCU. Patient does have 2- week follow-up visit scheduled to do a wound check. Patient was encouraged to call with any questions, concerns, new problems. 10/17/24 1603 Cosigner Signature (if applicable): CC: ~ Signed [facility]07-29-2025 Progress note Author See Valente [facility] Note Date/Time October 17, 2024 9:03 am [facility] Medical Records Department [address] [place] [address] Progress Note - Hospitalist 10/17/24 0857 MR#: [id number] Acct: [id number] Name: BERNICE HASSAN Rep #:[id number] : 1945 79 From: See ko MD PCP: Dr. Dago Emery MD Status:ADM I N Location: [place] [address] Subjective Subjective Doing well, no issues overnight. [...] hardware and expected postop changes. Reading Location: [facility] Physical Exam Narrative General: Alert, Oriented x3, [...] per Ortho Charges/Coding Visit Charges Inpatient E&M: 65406 Subs Hosp L2 10/17/24 0903 <Electronically signed by See Valente MD> Cosigner Signature (if applicable): CC: ~ Signed [facility] Work Phone: 1(373) 759-258607-29-2025 Progress note [facility] Medical Records Department [address] [place] [address] Progress Note - Hospitalist 10/17/24 0857 MR#: [id number] Acct: [id number] Name: BERNICE HASSAN Rep #:[id number] : 1945 79 From: See ko MD PCP: Dr. Dago Emery MD Status:ADM I N Location: [place] [address] Subjective Subjective Doing well, no issues overnight. [...] hardware and expected postop changes. Reading Location: [facility] Physical Exam Narrative General: Alert, Oriented x3, [...] per Ortho Charges/Coding Visit Charges Inpatient E&M: 82465 Subs Hosp L2 10/17/24 0903 Cosigner Signature (if applicable): CC: ~ Signed [facility]07-28-2025 Consult note Author Saulo Bullock [facility] Note Date/Time October 16, 2024 8:29 pm [facility] Medical Records Department [address] [place] [address] Consultation - Hospitalist 10/16/241953 MR#: [id number] Acct: [id number] Name: HASSANBERNICE K Rep #:[id number] : 1945 79 From: Saulo desai DO PCP: Dr. Dago Emery MD Status:ADM I N Location: [place] [address] Assessment & Plan Assessment/Plan (1) Status post total left knee replacement: PLAN: Plan Patient is an 79-year-old female who presented [facility] on 10/16/2024 for planned left total [...] is a 79 F who presented to [facility] on 10/16/2024 for planned left knee [...] Denied any other pain or discomfort currently. [facility] Medical History Cardiology follow-up encounter Wears [...] never substance use type: does not use justice/voodoo: Roman Catholic seatbelt use: always do you feel safe [...] hardware and expected postop changes. Reading Location: [id number]-PI Charges/Coding Visit Charges Inpatient E&M: 94590 Subs Hosp L2 10/16/242028 <Electronically signed by Saulo Bullock DO> Cosigner Signature (if applicable): CC: Dr. Geo Rodriguez MD; Dr. Dago Emery MD~ Signed [facility] Work Phone: 1(761) 138-646407-28-2025 Consult note Author Ki Cabrera [facility] Note Date/Time October 16, 2024 6:50 pm [facility] Medical Records Department [address] [place] [address] Anesthesia Postop Eval I 10/16/24 1849 MR#: [id number] Acct: [id number] Name: BERNICE HASSAN Rep #:[id number] : 1945 79 From: Ki Cabrera MD PCP: Dr. Dago Emery MD Status:ADM I N Y Race: C Location: [place] [address] - Anesthesia: Postop Eval I Current Vital Signs [...] MD > Date _ Ki Cabrera [facility] Signature: Date CC: ~ Signed [facility] Work Phone: 1(693) 618-308907-28-2025 Consult note Author Ki [facility] Note Date/Time October 16, 2024 6:50 pm [facility] Medical Records Department [address] [place] [address] Anesthesia Postop Eval II 10/16/24 185 MR#: [id number] Acct: [id number] Name: BERNICE HASSAN Rep #:[id number] : 1945 79 From: Ki Cabrera MD PCP: Dr. Dago Emery MD Status:ADM I N Y Race: C Location: [place] [address] - Anesthesia Postop Eval I Sum Postop Eval [...] Level: 3 nausea: No Vomiting: No 10/16/24 5050 <Electronically signed by Ki Cabrera MD > Date _ Ki Cabrera MD Cosigner Signature: Date CC: ~ Signed [facility] Work Phone: 1(126) 244-467907-28-2025 Consult note [facility] Medical Records Department [address] [place] [address] Consultation - Hospitalist 10/16/241953 MR#: [id number] Acct: [id number] Name: BERNICE HASSAN Rep #:[id number] : 1945 79 From: Saulo desai DO PCP: Dr. Dago Emery MD Status:ADM I N Location: [place] [address] Assessment & Plan Assessment/Plan (1) Status post total left knee replacement: PLAN: Plan Patient is an 79-year-old female who presented [facility] on 10/16/2024 for planned left total [...] is a 79 F who presented to [facility] on 10/16/2024 for planned left knee [...] Denied any other pain or discomfort currently. [facility] Medical History Cardiology follow-up encounter Wears [...] never substance use type: does not use justice/voodoo: Roman Catholic seatbelt use: always do you feel safe [...] hardware and expected postop changes. Reading Location: [id number] Charges/Coding Visit Charges Inpatient E&M: 89841 [facility] Hosp L2 10/16/242028 Cosigner Signature (if applicable): CC: Dr. Geo Rodriguez MD; Dr. Dago Emery MD~ Signed [facility]07-28-2025 Radiology Diagnostic study note [facility] Imaging Services [address] [place] [address] Knee 1 or 2 Views MR#: [id number] Acct: [id number] Name: BERNICE HASSAN Rep #: [id number] : 1945 F 79 From: Yoshi Montes MD PCP: Dr. Dago Emery MD Status: ADM I N Study:Knee 1 or 2 Views Date of Exam: Exam# [id number] Ordering Dr: Grayson Rodriguez MD PROCEDURE: LEFT [...] hardware and expected postop changes. Reading Location: [facility] CC: Dr. Geo Rodriguez MD; Dr. Dago Emery MD ~ Bait Man: Signed [facility]07-28-2025 Consult note [facility] Medical Records Department [address] [address] Anesthesia Postop Eval I 10/16/24 1849 MR#: [id number] Acct: [id number] Name: BERNICE HASSAN Rep #:[id number] : 1945 79 From: Ki Cabrera MD PCP: Dr. Dago Emery MD Status:ADM I N Y Race: C Location: [place] [address] Anesthesia: Postop Eval I Current Vital Signs [...] MD Cosigner Signature: Date CC: ~ Signed [facility]07-28-2025 Consult note [facility] Medical Records Department [address] [place] [address] Anesthesia Postop Eval II 10/16/241849 MR#: [id number] Acct: [id number] Name: BERNICE HASSAN Rep #:[id number] : 1945 79 From: Ki Cabrera MD PCP: Dr. Dago Emery MD Status:ADM I N Y Race: C Location: [place] [address] Anesthesia Postop Eval I Sum Postop Eval [...] MD Cosigner Signature: Date CC: ~ Signed [facility]07-28-2025 Consult note Author Ki wali [facility] Note Date/Time October 16, 2024 10:5 1am [facility] Medical Records Department [address] [place] [address] Pre-Anesthesia Evaluation 10/16/24 1050 MR#: [id number] Acct: [id number] Name: BERNICE HASSAN Rep #:[id number] : 1945 79 From: Ki Cabrera MD PCP: Dr. Dago Emery MD Status:REG S DC Y Race: C Location: [place] [address] ASA Classification* ASA Classification ASA Classification: 2 [...] KNEE ARTHROPLASTY Anesthesia History Anesthesia History - form setter helper: Anesthesia History - form setter helper Hx Hospitalization No 10/04/24 13:47 Any Problems [...] take am of surgery PONV PONV - form setter helper: PONV - form setter helper Female Yes 10/04/24 13:47 HX of Motion [...] 10/11/24 15:05 Respiratory Assessment Respiratory Assessment - form setter helper: Respiratory Tract Infection Hx - form setter helper Hx Respiratory Tract Infection No 10/04/24 13:47 STOP Sleep Apnea STOP Sleep Apnea - form setter helper: STOP Sleep Apnea - form setter helper Hx Hypertension Yes: CONTROLLED WITH MED 10/04/24 [...] Tobacco Use History Tobacco Use History - form setter helper: Tobacco Use History - form setter helper Tobacco Use Smoking Status Never smoker 10/04/24 13:47 Hx Tobacco Use No 10/04/24 13:47 Years Smoking Packs Smoked per Day Smoking Cessation Date was within the last 15 years Hx Smoking Cessation Date Hx Smoking Cessation Counseling Hematologic Medial History Hematologic Hx - form setter helper: Hematologic Medical Hx - immunohematologist Hx of Blood Transfusion No 10/04/24 13:47 [...] confused, unrespo /Reproduction History /Reproductive History - form setter helper: /Reproductive Hx- form setter helper Hx Now No 10/04/24 13:47 Gestational Age [...] never substance use type: does not use justice/voodoo: Roman Catholic seatbelt use: always do you feel safe at home: Yes Review of Systems (Anesthesia) ROS Narrative System reviewed and no additional complaints, except as documented. 10/16/24 1051 <Electronically signed by Ki Cabrera MD > Date _ Ki Cabrera MD Cosigner Signature: Date CC: ~ Signed [facility] Work Phone: 1(749) 700-587307-28-2025 History and physical note Author Nela Wallace [facility] Note Date/Time October 16, 2024 10:3 7am [facility] Medical Records Department [address] [place] [address] History & Physical Exam 10/13/24 1655 MR#: [id number] Acct: [id number] Name: BERNICE HASSAN Rep #:[id number] : 1945 79 From: Nela CORNELIUS PCP: Dr. Dago Emery MD Status:REG S DC Location: [place] [address] History and Physical History and Physical Patient [...] LT Hip ORIF - (04/17/2014) JWG @ [facility] LT Leg - (2007) Knee Replacement RT - (09/23/2022) SAW RT TKR ROBOTIC AT [facility] Anesthesia Complications: None Assistive Devices: Glasses, [...] MD; Dr. Dago Emery MD ~* Signed [facility] Work Phone: 1(369) 919-292907-28-2025 Consult note [facility] Medical Records Department [address] [place] [address] Pre-Anesthesia Evaluation 10/16/24 1050 MR#: [id number] Acct: [id number] Name: BERNICE HASSAN Rep #:[id number] : 1945 79 From: Ki Cabrera MD PCP: Dr. Dago Emery MD Status:REG S DC Y Race: C Location: AC17-1 ASA Classification* ASA Classification ASA Classification: 2 [...] KNEE ARTHROPLASTY Anesthesia History Anesthesia History - form setter helper: Anesthesia History - form setter helper Hx Hospitalization No 10/04/24 13:47 Any Problems [...] take am of surgery PONV PONV - form setter helper: PONV - form setter helper Female Yes 10/04/24 13:47 HX of Motion [...] 10/11/24 15:05 Respiratory Assessment Respiratory Assessment - form setter helper: Respiratory Tract Infection Hx - form setter helper Hx Respiratory Tract Infection No 10/04/24 13:47 STOP Sleep Apnea STOP Sleep Apnea - form setter helper: STOP Sleep Apnea - form setter helper Hx Hypertension Yes: CONTROLLED WITH MED 10/04/24 [...] Tobacco Use History Tobacco Use History - form setter helper: Tobacco Use History - form setter helper Tobacco Use Smoking Status Never smoker 10/04/24 13:47 Hx Tobacco Use No 10/04/24 13:47 Years Smoking Packs Smoked per Day Smoking Cessation Date was within the last 15 years Hx Smoking Cessation Date Hx Smoking Cessation Counseling Hematologic Medial History Hematologic Hx - form setter helper: Hematologic Medical Hx - immunohematologist Hx of Blood Transfusion No 10/04/24 13:47 [...] confused, unrespo /Reproduction History /Reproductive History - form setter helper: /Reproductive Hx- form setter helper Hx Now No 10/04/24 13:47 Gestational Age [...] never substance use type: does not use justice/voodoo: Roman Catholic seatbelt use: always do you feel safe at home: Yes Review of Systems (Anesthesia) ROS Narrative System reviewed and no additional complaints, except as documented. 10/16/24 1051 > Date _ Ki Germain Signature: Date CC: ~ Signed [facility]07-28-2025 History and physical note [facility] Medical Records Department [address] [place] [address] History & Physical Exam 10/13/24 1655 MR#: [id number] Acct: [id number] Name: BERNICE HASSAN Rep #:[id number] : 1945 79 From: Nela CORNELIUS PCP: Dr. Dago Emery MD Status:REG S ID Location: [place] [address] History and Physical History and Physical Patient [...] LT Hip ORIF - (04/17/2014) JWG @ [facility] LT Leg - (2007) Knee Replacement RT - (09/23/2022) SAW RT TKR ROBOTIC AT [facility] Anesthesia Complications: None Assistive Devices: Glasses, [...] MD; Dr. Dago Emery MD ~* Signed [facility]07-25-2025 [facility]07-23-2025 Progress [facility] [place] [facility] [place] [address] OFFICE VISIT Date of Service: 10/11/24 1453 MR#: [id number] Acct: [id number] Name: BERNICE HASSAN Rep #: [id number] : 1945 From: Carolyn Hernandez ch PATTERNMAKER WOOD PATTERNMAKER WOOD-C Age/Sex: 79/F [place] [facility] [place]: Signed HPI Subjective Date of Service [...] episodes of overt bleeding, + bruises easily. [facility] Medical History (Updated 10/04/24 @ 13:55 [...] never substance use type: does not use justice/voodoo: Roman Catholic seatbelt use: always do you feel safe [...] (vitamin D3) 25 1,000 unit PO DAILY praivn michael 10/26/19 10/11/24 History mcg (1,000 unit) [...] the past year?: No 10/11/24 1522 h PATTERNMAKER [employer]OD PATTERNMAKER WOOD-C> Date _ Carolyn Ruvalcaba NP [employer] Cosigner Signature: Date (if applicable) CC: ~ [facility]07-23-2025 Progress note Author Carolyn Ruvalcaba [facility] Note Date/Time October 11, 2024 3:22 pm [facility] [place] [facility] [address] [address] OFFICE VISIT Date of Service: 10/11/24 1453 MR#: [id number] Acct: [id number] Name: BERNICE HASSAN Rep #: [id number] : 1945 From: Carolyn Hernandez PATTERNMAKER WOOD PATTERNMAKER WOOD-C Age/Sex: 79/F Location: [facility] [...] episodes of overt bleeding, + bruises easily. [facility] Medical History (Updated 10/04/24 @ 13:55 [...] arthritis Social History [facility] members: [facility] Smoking Status: Never smoker second hand exposure: No alcohol intake: never substance use type: does not use justice/voodoo: Roman Catholic seatbelt use: always do you feel safe [...] 10/11/24 1522 <Electronically signed by Carolyn philippe NP, NP-C> Date _ Carolyn Ruvalcaba NP, NP-C Cosigner Signature: Date (if applicable) CC: ~ [facility] Work Phone: 1(835) 401-573507-02-2025 Evaluation note* Diagnosis Onset Date Resolution Status [...] 21, 2024 2:09pm Vitamin D deficiency acute 2024 2:09pm Hypothyroidism chronic October 2:09pm Myeloproliferative disorder chronic October 21, 2024 2:09pm Anemia acute November 01, 2 025 2:50pm [facility] Work Phone: 1(376) 115-688207-02-2025 Evaluation note* Diagnosis Onset Date Resolution Status [...] hypertension acu te October 21, 2024 2:09pm Status post total left knee replacement acute October 21, 2024 2:09pm Vitamin D deficiency acute 2024 2:09pm Hypothyroidism chronic October 2:09pm Myeloproliferative disorder chronic October 21, 2024 2:09pm Kidney stones resolved October 21, 2024 2:09pm Anemia acute November 01, 2 025 2:50pm [facility] Work Phone: 1([phone]) [phone] Radiology Diagnostic study note [facility] Imaging Services [address] [place] [address] Extremity Lower without Contra MR#: [id number] Acct: [id number] Name: BERNICE HASSAN Rep #: [id number] : 1945 F 79 From: Myron Newton MD PCP: Dr. Dago Emery MD Status: REG C LI Study:Extremity Lower without Contra Date of Exam: 08/01/24 Exam# [id number] Ordering Dr: Grayson Rodriguez MD PROCEDURE: EXTREMITY [...] left tibia without apparent complication. Reading Location: [facility] CC: Dr. Geo Rodriguez MD; Dr. Dago Emery MD ~ Bait Man: Signed [facility]05-02-2025 Consult note Author [facility] Note Date/Time November 01, 2024 4: 13pm [facility] Medical Records Department [address] [place] [address] Anesthesia Postop Eval I 11/01/241612 MR#: [id number] Acct: [id number] Name: BERNICE HASSAN Rep #:[id number] : 1945 79 From: Franklyn CHAMBERS PCP: Dr. Dago Emery MD Status:REG S DC Y Race: C Location: [place] [address] Anesthesia: Postop Eval I Current Vital Signs [...] CRNA Cosigner Signature: Date CC: ~ Signed [facility] Work Phone: 1([phone]) 182-906204-21-2025 Evaluation note* Diagnosis Onset Date Resolution Status Admit Date Essential thrombocythemia chronic July 10, 2024 12:43pm Myeloproliferative disorder chronic July 10, 2024 12:43pm Essential thrombocythemia chronic July 10, 2024 12:45pm Myeloproliferative disorder chronic July 10, 2024 12:45pm Educational circumstance resolved July 10, 2024 12:45pm Erythrocytosis resolved June 12:45pm Leukocytosis resolved July 10, 2024 12:45pm Thrombocytosis deleted June 12:45pm [facility] Work Phone: 1([phone]) [phone] Evaluation note* Diagnosis Onset Date Resolution Status [...] 2:15pm Thrombocytosis deleted October 11, 2024 2:15pm [facility] Work Phone: 1(704) [phone] Evaluation note* Diagnosis Onset Date Resolution Status [...] knee replacement acute October 18, 2024 1:14pm [facility] Work Phone: 1([phone]) 183-335404-21-2025 Evaluation note* Diagnosis Onset Date Resolution Status [...] 21, 2024 2:09pm Vitamin D deficiency acute 2024 2:09pm Hypothyroidism chronic October 2:09pm Myeloproliferative disorder chronic October 21, 2024 2:09pm Anemia acute November 01, 2 025 2:50pm [facility] Work Phone: Consult note Author Avery Rod [facility] Note Date/Time November 01, 2024 4: 03pm [facility] Medical Records Department [address] [place] [address] Pre-Anesthesia Evaluation 11/01/24 1539 MR#: [id number] Acct: [id number] Name: BERNICE HASSAN Rep #:[id number] : 1945 79 From: Avery Crocker PCP: Dr. Dago Emery MD Status:REG S DC Y Race: C Location: [place] [address]1 ASA Classification* ASA Classification ASA Classification: 3 [...] Procedure(s): EGD Anesthesia History Anesthesia History - form setter helper: Anesthesia History - form setter helper Hx Hospitalization Yes 11/01/24 15:07 Any Problems [...] take am of surgery PONV PONV - form setter helper: PONV - form setter helper Female Yes 11/01/24 15:07 HX of Motion [...] 11/01/24 15:07 Respiratory Assessment Respiratory Assessment - form setter helper: Respiratory Tract Infection Hx - form setter helper Hx Respiratory Tract Infection No 11/01/24 15:07 STOP Sleep Apnea STOP Sleep Apnea - form setter helper: STOP Sleep Apnea - form setter helper Hx Hypertension Yes 11/01/24 15:07 Hx Sleep [...] Tobacco Use History Tobacco Use History - form setter helper: Tobacco Use History - form setter helper Tobacco Use Smoking Status Never smoker 11/01/24 15:07 Hx Tobacco Use No 11/01/24 15:07 Years Smoking Packs Smoked per Day Smoking Cessation Date was within the last 15 years Hx Smoking Cessation Date Hx Smoking Cessation Counseling Hematologic Medial History Hematologic Hx - form setter helper: Hematologic Medical Hx - immunohematologist Hx of Blood Transfusion No 11/01/24 15:07 [...] confused, unrespo /Reproduction History /Reproductive History - form setter helper: /Reproductive Hx- form setter helper Hx Now Gestational Age (in weeks): EDC: [...] never substance use type: does not use justice/voodoo: Roman Catholic seatbelt use: always do you feel safe at home: Yes Review of Systems (Anesthesia) ROS Narrative System reviewed and no additional complaints, except as documented. 11/01/24 1603 <Electronically signed by Avery Rod MD> Date _ Avery Rod MD Cosigner Signature: Date CC: ~ Signed [facility] Work Phone: Consult note Author Dinorah Headley [facility] Note Date/Time November 01, 2024 4: 50pm [facility] Medical Records Department [address] [place] [address] Anesthesia Postop Eval II 11/01/24 1633 MR#: [id number] Acct: [id number] Name: BERNICE HASSAN Rep #:[id number] : 1945 79 From: Dinorah Headley VICE PRESIDENT OF ENGINEERING PCP: Dr. Dago Emery MD Status:REG S DC Y Race: C Location: [address] Anesthesia Postop Eval I Sum Postop Eval Completion status Anesthesia document: Postop Eval 1 completed: Yes Anesthesia Postop Eval I Summary Anesthesia Postop Eval I Summary: Anesthesia Postop Eval I: Assessment Summary Airway patent Yes 11/01/24 16:13 VICE PRESIDENT OF ENGINEERING.JBLOU Spontaneous unlabored Yes 11/01/24 16:13 VICE PRESIDENT OF ENGINEERING.JBLOU respirations Mental status Awake,Calm 11/01/24 16:13 VICE PRESIDENT OF ENGINEERING.JBLOU nausea No 11/01/24 16:13 VICE PRESIDENT OF ENGINEERING.JBLOU Vomiting No 11/01/24 16:13 VICE PRESIDENT OF ENGINEERING.JBLOU Anesthesia Postop Eval I: Fluid Summary Crystalloid volume administer 200 11/01/24 16:13 VICE PRESIDENT OF ENGINEERING.JBLOU (ml) Colloids volume administered ( ml) Blood Product volume administered (ml) Total IV fluid infused 200 11/01/24 16:13 VICE PRESIDENT OF ENGINEERING.JBLOU Anesthesia Postop Eval I: Summary Notes Anesthesia Complication No 11/01/24 16:13 VICE PRESIDENT OF ENGINEERING.JBLOU Anesthesia Complication Comment: Post-operative progress note Anesthesia: Postop Eval II Evaluation Mental status: Awake Pain Level: 0 nausea: No Vomiting: No 11/01/24 1633 <Electronically signed by Dinorah jarquin CRNA> Date _ Dinorah Headley CRNA Cosigner Signature: Date CC: ~ Signed [facility] Work Phone: Discharge summary Author Dr. Yanez [facility] April 12, 2022 10:08am Note Date/Time April 12, 2022 8 :45am [facility] Medical Records Department [place] [address] Emergency Department Summary 04/12/22 MR#: [id number] Acct: [id number] Name: BERNICE HASSAN Rep #:[id number] : 1945 76 From: Garret Yanez DO [...] states he has a history of osteoarthritis. [facility] Medical History Anxiety Fracture of left hip [...] never substance use type: does not use justice/voodoo: Roman Catholic seatbelt use: always do you feel safe [...] 9:33 EST Reading Location ID and State: [address] [place] [address] , Service support , Discharge Plan Triage [...] your Primary Care Provider. Call [facility] ([phone]) or report to the closest Emergency Room. Call 911 if necessary. 04/12/22 1008 <Electronically signed by Garret Yanez DO> Cosigner Signature (if applicable): CC: Dr. Dago Emery MD ~ Signed [facility] Work Phone: Evaluation note* Diagnosis Onset Date Resolution Status Essential thrombocythemia ch ronic Myeloproliferative disorder chronic Essential thrombocythemia ch ronic Myeloproliferative disorder chronic Educational circumstance res olved Erythrocytosis resolved Leukocytosis resolved [facility] Work Phone: Evaluation note* Diagnosis Onset Date Resolution Status Essential thrombocythemia ch ronic Myeloproliferative disorder chronic Educational circumstance res olved Erythrocytosis resolved Leukocytosis resolved Essential thrombocythemia ch ronic Myeloproliferative disorder chronic [facility] Work Phone: Evaluation note* Diagnosis Onset Date Resolution Status BMI 33.0-33.9,adult acute Debility acute Status post total right knee replacement acute Essential thrombocythemia ch ronic Hyperlipidemia chronic Hypertension chronic Hypothyroidism chronic Essential thrombocythemia ch ronic Myeloproliferative disorder chronic Essential thrombocythemia ch ronic Myeloproliferative disorder chronic Educational circumstance res olved Erythrocytosis resolved Leukocytosis resolved [facility] Work Phone: History and physical note Author Pio Friend [facility] Note Date/Time November 01, 2024 3: 26pm [facility] Medical Records Department [address] [place] [address] History & Physical Exam 11/01/24 1523 MR#: [id number] Acct: [id number] Name: BERNICE HASSAN Rep #:[id number] : 1945 79 From: Pio Webb DO PCP: Dr. Dago Emery MD Status:REG S DC Location: [place] [address] HPI - General General Date of Admission: [...] part of recently but thelast 5 years. [facility] Medical History Cardiology follow-up encounter Wears [...] never substance use type: does not use justice/voodoo: Roman Catholic seatbelt use: always do you feel safe [...] Dago Emery MD; Pio Webb DO~ Signed [facility] Work Phone: Hospital Discharge instructionsAmbulatory Orders* 12 Lead EKG [[facility]] Location: None Selected [facility] Work Phone: Hospital Discharge instructionsAdditional Instructions Discharge 11/28/2024 to [place], intermediate, private pay, part B therapies.[facility] Work Phone: Reason for referral (narrative)No reason for referral information availableWParkwood Hospital Work Phone: Chief Complaint and Reason [...] 2024 2: 50pm Chief Complaint Admit Date ABN EKG ([facility]) September 20, 2024 2:25p [...] KNEE ORTHOP LAST October 31, 2024 9:51am ADMISSION H&P EXAM November 28, 2024 2:04pm PENITENTIARY LAB WORK November 29 5:00am ADMISSION H&P EXAM November 30, 2024 6:21pm [facility] December 05, 2024 6:13pm LAB WORK December 06, 2024 6:05am LABOWRK December 08, 2024 5:00am LAB WORK December 13, 2024 6:15am [facility] December 13, 2024 3:34pm LAB WORK December 20, 2024 5: 35am Reason for Visit Admit Date Abnormal ECG September 20, 2024 2:25p m Pre-op evaluation September 20, 2024 2:25p m Hyperlipidemia September 20, 2024 2:25p m Hypertension September 20, 2024 2:25p m Essential thrombocythemia October 11 2:06pm Myeloproliferative disorder October 11, 025 2:06pm Essential thrombocythemia October 11 2:15pm [...] Essential (primary) hypertension October 21, 2024 2:09pm Status post total left knee replacement October 21, 2024 2:09pm Vitamin D deficiency October 21, 2024 2: 09pm Hypothyroidism October 21, 2024 2:0 9pm Myeloproliferative disorder October 21, 2024 2:09pm Kidney stones October 21, 2024 2:0 9pm Anemia November 01, 2024 2: 50pm Advance Directives No Advanced Directives Records Found Advance Directive Response Recorded Date/ Time Advance Directives Yes April 19, 2014 4:40pm Living Will No December 02, 2018 12:53pm Power of Plate Corrector No November 12:53pm Advance Directive Response Recorded Date/ Time Advance Directives Yes April 19, 2014 4:40pm Living Will No April 12 8:37am Power of Plate Corrector No April 12, 2022 8:37am Advance Directive Response Recorded Date/ Time Advance Directives Yes April 19, 2014 5:40pm Living Will No April 12 9:37am Power of Plate Corrector No April 12, 2022 9:37am Advance Directive Response Recorded Date/ Time Advance Directives Yes April 19, 2014 5:40pm Living Will Yes September 03, 2022 11:45am Power of Plate Corrector Yes September 03 11:45am Advance Directive Response Recorded Date/ Time Name of Medical Power of Plate Corrector Dianne Conley , claims attorney September 28, 2022 1:21pm Advance Directives Yes April 19, 2014 4:40pm Living Will Yes September 28, 2022 1:21pm Power of Plate Corrector Yes September 28 1:21pm Advance Directive Response Recorded Date/ Time Living Will No June 27, 2018 2:53pm Do you have a Healthcare Power of Plate Corrector? No June 27, 2018 2:53pm Advance Directives Yes April 19, 2014 5:40pm Advance Directive Response Recorded Date/ Time Living Will No June 27, 2018 2:53pm Do you have a Healthcare Power of Plate Corrector? No June 27, 2018 2:53pm Do you have a Healthcare Power of Plate Corrector? Yes October 16, 2024 8:13pm Advance Directives Yes April 19, 2014 5:40pm Advance Directive Response Recorded Date/ Time Living Will No June 27, 2018 2:53pm Do you have a Healthcare Pow er of Plate Corrector? No June 27, 2018 2:53pm Do you have a Healthcare Pow er of Plate Corrector? Yes October 23, 2024 3:05pm Name of Medical Power of Plate Corrector Lizzeth Matias, jon October 23, 2024 3:05pm Do you have a Healthcare Pow er of Plate Corrector? No November 01, 2024 3:07pm Do you have a Healthcare Pow er of Plate Corrector? Yes October 16, 2024 8:13pm Advance Directives Yes April 19, 2014 5:40pm Advance Directive Response Recorded Date/ Time Advance Directives Yes January 05, 2025 9:23am Living Will No June 27, 2018 2:53pm Do you have a Healthcare Pow er of Plate Corrector? No June 27, 2018 2:53pm Do you have a Healthcare Pow er of Plate Corrector? Yes October 23, 2024 3:05pm Name of Medical Power of Plate Corrector Lizzeth Matiasjon October 23, 2024 3:05pm Do you have a Healthcare Pow er of Plate Corrector? No November 01, 2024 3:07pm Do you have a Healthcare Pow er of Plate Corrector? Yes October 16, 2024 8:13pm Summary Purpose Family History No Family History [...] Care Provider, Referring Provider Active Carolyn Ruvalcaba PATTERNMAKER WOOD, PATTERNMAKER WOOD-C Attending Provider Active Team Status: Inactive Member [...] 2024 End: July 10, 2024 Carolyn Ruvalcaba PATTERNMAKER WOOD, PATTERNMAKER WOOD-C Attending Provider Active Start: July 10, 2024 [...] 2024 End: July 10, 2024 Carolyn Ruvalcaba PATTERNMAKER WOOD, PATTERNMAKER WOOD-C Attending Provider Active Start: July 10, 2024 [...] 2024 End: July 31, 2024 Dr. Dago Eemry MD Referring Provider Active Start: July 31, [...] 2024 End: October 11, 2024 Carolyn Ruvalcaba PATTERNMAKER WOOD, PATTERNMAKER WOOD-C Attending Provider Active Start: October 11, 2024 End: October 11, 2024 Team Status: Active Member Role/Relationship Status Dates Dr. Dago Emery MD Primary Care Provider Active Start: October 11, 2024 Dr. Dago Emery MD Family Provider Active Sta rt: October 11, 2024 Dr. aDgo Emery MD Referring Provider Active Start: October [...] 2024 End: October 11, 2024 Carolyn Ruvalcaba PATTERNMAKER WOOD, PATTERNMAKER WOOD-C Attending Provider Active Start: October 11, 2024 [...] St art: November 01, 2024 Team Status: Active Member Role/Relationship Status Dates Dr. Dago Emery MD Primary care physician Active Team Status: Inactive Member Role/Relationship Status Dates Dr. Dago Emery MD Primary care physician Active Start: September 20, 2024 End: September 20, 2024 Dr. Dago Emery MD Referring Provider Active Start: September 20, 2024 End: September 20, 2024 Dr. Omero Armas MD Attending physician Active Start: September 20, 2024 End: September 20, 2024 Team Status: Inactive Member Role/Relationship Status Dates Dr. Dago Emery MD Primary care physician Active Start: October 11, 2024 End: October 11, 2024 Dr. Dago Emery MD Referring Provider Active Start: October 11, 2024 End: October 11, 2024 Carolyn Ruvalcaba PATTERNMAKER WOOD, PATTERNMAKER WOOD-C Attending physician Active Start: October 11, 2024 End: October 11, 2024 Team Status: Active Member Role/Relationship Status Dates Dr. Dago Emery MD Primary care physician Active Start: October 11, 2024 Dr. Dago Emery MD Referring Provider Active Start: October 11, 2024 Dr. Umang Pate MD Attending physician Active Start: October 11, 2024 Team Status: Active Member Role/Relationship Status Dates Dr. Dago Emery MD Primary care physician Active Start: October 16, 2024 Dr. Geo Rodriguez MD Admitting physician Active Start: October 16, 2024 Dr. Geo Rodriguez MD Referring Provider Active Start: October 16, 2024 Dr. Geo Rodriguez MD Nurse Practitioner Active Start: October 16, 2024 Dr. Saulo Bullock DO Attending physician Activ e Start: October 16, 2024 Dr. Saulo Bullock DO Nurse Practitioner Active Start: October 16, 2024 Dr. See Valente MD Nurse Practitioner Active Start: October 16, 2024 Team Status: Active Member Role/Relationship Status Dates Dr. Dago Emery MD Primary care physician Active Start: October 17, 2024 Dr. Geo Rodriguez MD Admitting physician Active Start: October 17, 2024 Dr. Geo Rodriguez MD Nurse Practitioner Active Start: October 17, 2024 Dr. Saulo Bullock DO Nurse Practitioner Active Start: October 17, 2024 Dr. See Valente MD Attending physician Activ e Start: October 17, 2024 Dr. See Valente MD Nurse Practitioner Active Start: October 17, 2024 Team Status: Active Member Role/Relationship Status Dates Dr. Dago Emery MD Primary care physician Active Start: October 18, 2024 Dr. Geo Rodriguez MD Admitting physician Active Start: October 18, 2024 Dr. Geo Rodriguez MD Nurse Practitioner Active Start: October 18, 2024 Dr. Saulo Bullock DO Nurse Practitioner Active Start: October 18, 2024 Dr. See Valente MD Attending physician Activ e Start: October 18, 2024 Dr. See Valente MD Nurse Practitioner Active Start: October 18, 2024 Team Status: Inactive Member Role/Relationship Status Dates Dr. Dago Emery MD Primary care physician Active Start: October 18, 2024 End: October 21, 2024 Dr. Geo Rodriguez MD Admitting physician Active Start: October 18, 2024 End: October 21, 2024 Dr. Geo Rodriguez MD Attending physician Active Start: October 18, 2024 End: October 21, 2024 Dr. Geo Rodriguez MD Referring Provider Active Start: October 18, 2024 End: October 21, 2024 Dr. Sofia Carvajal MD Nurse Practitioner Active Start: October 18, 2024 End: October 21, 2024 Dr. Juliane Villa MD Nurse Practitioner Active Start: October 18, 2024 End: October 21, 2024 Team Status: Active Member Role/Relationship Status Dates Dr. Dago Emery MD Primary care physician Active Start: October 20, 2024 Dr. Geo Rodriguez MD Admitting physician Active Start: October 20, 2024 Dr. Geo Rodriguez MD Nurse Practitioner Active Start: October 20, 2024 Dr. Saulo Bullock DO Nurse Practitioner Active Start: October 20, 2024 Dr. Sofia Carvajal MD Attending physician Active Start: October 20, 2024 Dr. Sofia Carvajal MD Nurse Practitioner Active Start: October 20, 2024 Team Status: Inactive Member Role/Relationship Status Dates Dr. Dago Emery MD Primary care physician Active Start: October 21, 2024 End: November 28, 2024 Dr. Dago Emery MD Admitting physician Active Start: October 21, 2024 End: November 28, 2024 Dr. Dago Emery MD Attending physician Active Start: October 21, 2024 End: November 28, 2024 Team Status: Active Member Role/Relationship Status Dates Dr. Dago Emery MD Primary care physician Active Start: October 31, 2024 Dr. Dago Emery MD Admitting physician Active Start: October 31, 2024 Dr. Dago Emery MD Referring Provider Active Start: October 31, 2024 Dr. Dago Emery MD Nurse Practitioner Active Start: October 31, 2024 Dr. Pio Webb DO Attending physician Active Start: October 31, 2024 Team Status: Inactive Member Role/Relationship Status Dates Dr. Dago Emery MD Primary care physician Active Start: November 01, 2024 End: November 01, 2024 Dr. Dago Emery MD Referring Provider Active Start: November 01, 2024 End: November 01, 2024 Dr. Pio Webb DO Attending physician Active Start: November 01, 2024 End: November 01, 2024 Team Status: Active Member Role/Relationship Status Dates Dr. Dago Emery MD Primary care physician Active Start: November 01, 2024 Dr. Dago Emery MD Referring Provider Active Start: November 01, 2024 Dr. Pio Webb DO Attending physician Active Start: November 01, 2024 Dr. Pio Webb DO Nurse Practitioner Active Start: November 01, 2024 Team Status: Inactive Member Role/Relationship Status Dates Dr. Dago Emery MD Primary care physician Active Start: November 28, 2024 End: November 28, 2024 Dr. Irvin Mckenna MD Attending physician Active Start: November 28, 2024 End: November 28, 2024 Team Status: Active Member Role/Relationship Status Dates Dr. Dago Emery MD Primary care physician Active Start: November 29, 2024 Irvin SARABIA MD Attending physician Active Start: November 29, 2024 Team Status: Inactive Member Role/Relationship Status Dates Dr. Dago Emery MD Primary care physician Active Start: November 30, 2024 End: November 30, 2024 Fouzia Gaming NP, PATTERNMAKER WOOD-C Attending physician Active Start: November 30, 2024 End: November 30, 2024 Team Status: Inactive Member Role/Relationship Status Dates Dr. Dago Emery MD Primary care physician Active Start: December 05, 2024 End: December 05, 2024 Fouzia Gaming NP, PATTERNMAKER WOOD-C Attending physician Active Start: December 05, 2024 End: December 05, 2024 Team Status: Active Member Role/Relationship Status Dates Dr. Dago Emery MD Primary care physician Active Start: December 06, 2024 Irvin SARABIA MD Attending physician Active Start: December 06, 2024 Team Status: Active Member Role/Relationship Status Dates Dr. Dago Emery MD Primary care physician Active Start: December 08, 2024 rIvin SARABIA MD Attending physician Active Start: December 08, 2024 Team Status: Active Member Role/Relationship Status Dates Dr. Dago Emery MD Primary care physician Active Start: December 13, 2024 Irvin SARABIA MD Attending physician Active Start: December 13, 2024 Team Status: Inactive Member Role/Relationship Status Dates Dr. Dago Emery MD Primary care physician Active Start: December 13, 2024 End: December 13, 2024 Fouzia Gaming NP PATTERNMAKER WO[employer]-C Attending physician Active Start: December 13, 2024 End: December 13, 2024 Team Status: Active Member Role/Relationship Status Dates Dr. Dago Emery MD Primary care physician Active Start: December 20, 2024 Irvin SARABIA MD Attending physician Active Start: December 20, 2024 Team Status: Active Member Role/Relationship Status Dates Dr. Dago Emery MD Primary care physician Active Start: December 28, 2024 Irvin SARABIA MD Attending physician Active Start: December 28, 2024 Team Status: Active Member Role/Relationship Status Dates Dr. Dago Emery MD Primary care physician Active Start: January 03, 2025 Irvin SARABIA MD Attending physician Active Start: January 03, 2025 Team Status: Active Member Role/Relationship Status Dates Dr. Dago Emery MD Primary care physician Active Start: January 10, 2025 Irvin SARABIA MD Attending physician Active Start: January 10, 2025 INFORMATION SOURCE (unrecogn ized section and content) DATE CREATED AUTHOR 01/31/2025 [facility] FOR RECORDS PERTAINING TO PATIENTS WHO [...] BE BASED ON THE PRIMARY CLINICAL RECORDS. [employer] provides no warranty or guarantee of the accuracy or completeness of information in this document.
[2025-02-21 07:33] LABS: Hematocrit 27.1 % (37-47); Hemoglobin 9.1 g/dL (12.0-15.0); Immature Granulocytes Count 0.030 X10^3/uL (0.0-0.0); Mean Corp Hgb Conc 33.6 g/dL (32-36); Mean Corpuscular Volume 118.3 fL (81-99); Mean Platelet Vol. 10.7 fl (6.2-12.0); NRBC Flagged by Analyzer 0 % (0-5); POSITIVE MORPHOLOGY YES; Platelet Count 179 K/mm3 (150-450); RBC Distribution Width CV 16.7 % (11.6-14.6); RBC Distribution Width SD 72.6 fl (35.1-43.9); Red Blood Count 2.29 M/mm3 (4.2-5.4); White Blood Count 3.4 K/mm3 (4.4-11.0)
[2025-02-21 07:38] LABS: Differential Indicated SCAN CRITERIA MET
[2025-02-21 07:47] LABS: Anion Gap 7 (5-15); BUN 19 mg/dL (4-19); BUN/Creat Ratio 15.2 RATIO (10-20); Calcium,Total 8.8 mg/dL (7.6-11.0); Carbon Dioxide 25.4 mmol/L (21.0-32.0); Chloride 105 mmol/L (98-108); Glucose 79 mg/dL (70-99); Potassium 4.5 mmol/L (3.3-5.1)
[2025-02-21 08:16] LABS: Anisocytosis 1+
== END ==
LOC: OLS.WHLTCC 05:00
PROVIDERS: PCP Family Medicine Geriatric Medicine; Visit Provider Internal Medicine
DX: D69.6 Thrombocytopenia, unspecified (principal)
CPT/HCPCS: 36415; 80048; 85025

== ENCOUNTER → 2025-02-28 05:40 | Outpatient (REF) | payer MEDICARE, OTHER, SELFPAY ==
[2025-02-28 08:43] LABS: Hematocrit 28.3 % (37-47); Hemoglobin 9.2 g/dL (12.0-15.0); Immature Granulocytes Count 0.020 X10^3/uL (0.0-0.0); Mean Corp Hgb Conc 32.5 g/dL (32-36); Mean Corpuscular Volume 116.5 fL (81-99); Mean Platelet Vol. 10.5 fl (6.2-12.0); NRBC Flagged by Analyzer 0 % (0-5); POSITIVE MORPHOLOGY YES; Platelet Count 209 K/mm3 (150-450); RBC Distribution Width CV 16.6 % (11.6-14.6); RBC Distribution Width SD 71.4 fl (35.1-43.9); Red Blood Count 2.43 M/mm3 (4.2-5.4); White Blood Count 5.0 K/mm3 (4.4-11.0)
[2025-02-28 08:48] LABS: Differential Indicated SCAN CRITERIA MET
[2025-02-28 09:17] LABS: AST(SGOT) 24 U/L (<=31); Alanine Aminotransfer ALT/SGPT 8 U/L (<=34); Albumin, Serum 3.2 g/dL (3.4-4.8); Alkaline Phosphatase 58 U/L (35-104); Anion Gap 10 (5-15); BUN 13 mg/dL (4-19); BUN/Creat Ratio 15.9 RATIO (10-20); Bilirubin, Direct 0.18 mg/dL (0.00-0.30); Calcium,Total 8.8 mg/dL (7.6-11.0); Carbon Dioxide 22.9 mmol/L (21.0-32.0); Chloride 104 mmol/L (98-108); Globulin 2.4 g/dL (2.2-4.2); Glucose 74 mg/dL (70-99); Potassium 3.8 mmol/L (3.3-5.1); Vitamin D,25 Hydroxy 22.5 ng/mL (30-100)
[2025-02-28 09:29] LABS: Anisocytosis 1+
[2025-02-28 09:46] LABS: FOLATES,SERUM (FOLIC ACID) 31.90 ng/mL (4.60-34.80)
== END ==
LOC: OLS.WHLTCC 05:40
PROVIDERS: PCP Family Medicine Geriatric Medicine; Visit Provider Internal Medicine
DX: S82.302D Unspecified fracture of lower end of left tibia, subsequent encounter for closed fracture with routine healing (principal); Z96.652 Presence of left artificial knee joint; M62.561 Muscle wasting and atrophy, not elsewhere classified, right lower leg; D69.6 Thrombocytopenia, unspecified
CPT/HCPCS: 36415; 80048; 80076; 82306; 82746; 84443; 85025

== ENCOUNTER → 2025-03-07 05:00 | Outpatient (REF) | payer MEDICARE, OTHER, SELFPAY ==
--- OUTSIDE RECORDS SUMMARY | 2025-03-07 04:44 | XMS RPT_ITS | CCD ---
Author Organization [facility] Care Team Providers Care [employer] Name Role Phone Dr. Dago Emery Chi Primary Care Provider Rupert, Dr. Dago Nicole Referring Provider Herlinda, Dr. Heck Attending Provider Rupert, Dr. Dago Nicole Primary Care Provider Rupert, Dr. Dago Nicole Referring Provider Peg SACK SEWER MACHINE, SACK SEWER MACHINE-C Carolyn Attending Provider Rupert, Dr. Dago Nicole Primary Care Provider Rupert, Dr. Dago Nicole Referring Provider Herlinda, Dr. Heck Attending Provider Rupert COON, Dr. Dago Nicole Primary Care Provider Rupert COON, Dr. Dago Nicole Referring Provider Peg SACK SEWER MACHINE-C, Carolyn Attending Provider Herlinda COON, Dr. Heck Attending Provider Rupert COON, Dr. Dago Nicole Attending Provider Dr. Omero Armas MD Attending Provider Herlinda COON, Dr. Heck Attending Provider Sven COON, Dr. Guardado Admit Provider Sven COON, Dr. Guardado Referring Provider Sven COON, Dr. Guardado Other Provider [phone] Dr. Saulo Bullock DO Attending Provider Dr. [...] COON, Dr. Dago Nicole Referring Provider Peg SACK SEWER MACHINE-C, Carolyn Attending Provider Rupert COON, Dr. Dago Nicole Primary Care Physician Rupert COON, Dr. Dago Nicole Referring Provider Chanda COON, Dr. Jamil Attending Physician Peg SACK SEWER MACHINE-C, Carolyn Attending Physician Herlinda COON, Dr. Heck [...] Practitioner Bala COON, Dr. Bryan Attending Physician Irvin Mckenna MD Attending Physician Unavail able Amberly SACK SEWER MACHINE-C, Fouzia Attending Physician Irvin Joe Attending Unavailabl e Rupert, Dago Chi Primary Care Unavailable Oleghe Irvin SARABIA Attending Unavailabl e Rupert, Dago Chi Primary Care Unavailable Oleghe Irvin SARABIA Attending Unavailabl e Urpert, Dago Chi Primary Care Unavailable Amberly SACK SEWER MACHINE, Fouzia Attending Unavailable Rupert, Dago Chi Primary Care Unavailable Rupert, Dago Chi Primary Care Unavailable Rupert, Dago Chi Admitting Unavailable Rupert, Dago Chi Attending Unavailable Geo Rodriguez Referring Unavailable Geo Rodriguez Attending Unavailable Rupert, Dago Chi Primary Care Unavailable Oleghe Irvin SARABIA Attending Unavailabl e Rupert, Dago Chi Primary Care Unavailable Oleghe OLSIrvin Attending Unavailabl e Rupert, Dago Chi Primary Care Unavailable Pio Webb Attending Unavailable Rupert, Dago Chi Primary Care Unavailable Rupert, Dago Chi Referring Unavailable Amberly SACK SEWER MACHINE, Fouzia Attending Unavailable Rupert, Dago Chi Primary [...] Unavailable Rupert, Dago Chi Referring Unavailable Peg SACK SEWER MACHINE, Carolyn Attending Unavailable Rupert, Dago Chi Primary Care Unavailable Rupert, Dago Chi Referring Unavailable Rupert, Dago Chi Primary Care Unavailable Umang Pate Attending Unavailable Tickton SACK SEWER MACHINE, Fouzia Attending Unavailable Rueprt, Dago Chi Primary Care Unavailable Sofia Carvajal [...] Rupert, Dago Chi Primary Care Unavailable Amberly SACK SEWER MACHINE, Fouzia Attending Unavailable Rupert, Dago Chi Primary Care Unavailable Omero Armas Attending Unavailable Rupert, Dago Chi Referring Unavailable Rupert, Dago Chi Primary Care Unavailable Peg SACK SEWER MACHINE, Carolyn Attending Unavailable Rupert, Dago Chi Referring Unavailable Saulo Bullock Consulting Unavailable Sofia Carvajal Attending Unavailable Sven, Geo Admitting Unavailable Sven, Geo Referring Unavailable Rupert, Dago Chi Primary Care Unavailable Carvajal Sofia Consulting Unavailable Sven, Geo Consulting Unavailable Friend, Pio Attending Unavailable Rupert, Dago Chi Primary Care Unavailable Rupert, Dago Chi Admitting Unavailable Rupert, Dago Chi Referring [...] dye] Propensity to adverse reactions 2 Unknown [facility] Comment on above: mouth to droop (16 sources) Penicillins Propensity to adverse reactions 2 Swelling [facility] (17 sources) Promethazine; Translations: [promethazine HCl] Drug Allergy 2 Other [facility] Comment on above: heightens engery (zi ng) (16 sources) Tetanus Vaccines and Toxoid Propensity to adverse reactions 2 NEEDS FOLLOW-UP [facility] (1 source) Penicillins Drug allergy (disorder) 5 [facility] Repository (1 source) Tetanus Vaccines and Toxoid Drug allergy (disorder) 5 [facility] Repository Medications Current Medications Medication Drug [...] docusate sodium 50 mg / adria osides, mcfp 8.6 mg oral tablet (20 sources) Start: [...] hip requiring operative repair polyethylene glycol 3350 93105 mg powder for oral solution (7 sources) [...] W/Diff, Automatedon 11-0 Absolute Neut Normal 2.0-7.7 [facility] Comment on above: Result Comment: OK T O CANCEL PER DR PATE Performed By: #### L 500.4050, L100.0100 ####[facility] [address] [place], [place], [id number] HCT Normal 37-47 [facility] Comment on above: Result Comment: OK T O CANCEL PER DR PATE Performed By: #### L 500.4050, L100.0100 ####[facility] [address] [place], [address] HGB Normal 12.0-15.0 [facility] Comment on above: Result Comment: OK T O CANCEL PER DR PATE Performed By: #### L 500.4050, L100.0100 ####[facility] [address] [place], [address] MCH Normal 27.0-32.0 [facility] Comment on above: Result Comment: OK T O CANCEL PER DR PATE Performed By: #### L 500.4050, L100.0100 ####[facility] [address] [place], [address] MCHC Normal 32-36 [facility] Comment on above: Result Comment: OK T O CANCEL PER DR PATE Performed By: #### L 500.4050, L100.0100 ####[facility] [address] [place], [address] MCV Normal 81-99 [facility] Comment on above: Result Comment: OK T O CANCEL PER DR PATE Performed By: #### L 500.4050, L100.0100 ####[facility] [address] [place], [address] NEUT% Normal 47-70 [facility] Comment on above: Result Comment: OK T O CANCEL PER DR PATE Performed By: #### L 500.4050, L100.0100 ####[facility] [address] [place], [address] PLT Normal 150-450 [facility] Comment on above: Result Comment: OK T O CANCEL PER DR PATE Performed By: #### L 500.4050, L100.0100 ####[facility] [address] [place], [address] RBC Normal 4.2-5.4 [facility] Comment on above: Result Comment: OK T O CANCEL PER DR PATE Performed By: #### L 500.4050, L100.0100 ####[facility] [address] [place], [address] RDW CV Normal 11.6-14.6 [facility] Comment on above: Result Comment: OK T O CANCEL PER DR PATE Performed By: #### L 500.4050, L100.0100 ####[facility] [address] [place], [address] RDW SD Normal 35.1-43.9 [facility] Comment on above: Result Comment: OK T O CANCEL PER DR PATE Performed By: #### L 500.4050, L100.0100 ####[facility] [address] [place], [address] WBC Normal 4.4-11.0 [facility] Comment on above: Result Comment: OK T O CANCEL PER DR PATE Performed By: #### L 500.4050, L100.0100 ####[facility] [address] [place], [address] Comprehensive Metabolic Prof ilon 01-24-2025 ALB Normal 3.4-4.8 [facility] Comment on above: Result Comment: OK T O CANCEL PER DR PATE Performed By: #### L 500.4050, L100.0100 ####[facility] [address] [place], [address] ALK PHOS Normal 35-104 [facility] Comment on above: Result Comment: OK T O CANCEL PER DR PATE Performed By: #### L 500.4050, L100.0100 ####[facility] [address] [place], [address] ALT Normal <=34 [facility] Comment on above: Result Comment: OK T O CANCEL PER DR PATE Performed By: #### L 500.4050, L100.0100 ####[facility] [address] [place], [address] AST Normal <=31 [facility] Comment on above: Result Comment: OK T O CANCEL PER DR PATE Performed By: #### L 500.4050, L100.0100 ####[facility] [address] [place], [address] BUN Normal 4-19 [facility] Comment on above: Result Comment: OK T O CANCEL PER DR PATE Performed By: #### L 500.4050, L100.0100 ####[facility] [address] [place], [address] BUN/CRE Normal 10-20 [facility] Comment on above: Result Comment: OK T O CANCEL PER DR PATE Performed By: #### L 500.4050, L100.0100 ####[facility] [address] [place], [address] Calcium Normal 7.6-11.0 [facility] Comment on above: Result Comment: OK T O CANCEL PER DR PATE Performed By: #### L 500.4050, L100.0100 ####[facility] [address] [place], [address] CL Normal 98-108 [facility] Comment on above: Result Comment: OK T O CANCEL PER DR PATE Performed By: #### L 500.4050, L100.0100 ####[facility] [address] [place], [address] CO2 Normal 21.0-32.0 [facility] Comment on above: Result Comment: OK T O CANCEL PER DR PATE Performed By: #### L 500.4050, L100.0100 ####[facility] [address] [place], [address] CREAT,SERUM Normal 0.70-1.20 [facility] Comment on above: Result Comment: OK T O CANCEL PER DR PATE Performed By: #### L 500.4050, L100.0100 ####[facility] [address] [place], [address] eGFR Normal >60 [facility] Comment on above: Result Comment: OK T O CANCEL PER DR PATE Performed By: #### L 500.4050, L100.0100 ####[facility] [address] [place], [address] GAP Normal 5-15 [facility] Comment on above: Result Comment: OK T O CANCEL PER DR PATE Performed By: #### L 500.4050, L100.0100 ####[facility] [address] [place], [address] GLU Normal 70-99 [facility] Comment on above: Result Comment: OK T O CANCEL PER DR PATE Performed By: #### L 500.4050, L100.0100 ####[facility] [address] [place], [address] Potassium Normal 3.3-5.1 [facility] Comment on above: Result Comment: OK T O CANCEL PER DR PATE Performed By: #### L 500.4050, L100.0100 ####[facility] [address] [place], [address] T BILI Normal 0.00-1.30 [facility] Comment on above: Result Comment: OK T O CANCEL PER DR PATE Performed By: #### L 500.4050, L100.0100 ####[facility] [address] [place], [address] T PROT Normal 5.9-8.4 [facility] Comment on above: Result Comment: OK T O CANCEL PER DR PATE Performed By: #### L 500.4050, L100.0100 ####[facility] [address] [place], [address] Comprehensive Metabolic Profil Normal 133-145 [facility] Comment on above: Result Comment: OK T O CANCEL PER DR ISCKARUS Performed By: #### L 500.4050, L100.0100 ####[facility] [address] [place], [address] Oncology Visit Reporton 11-0 Oncology Visit Report Normal [facility] Absolute lymphocyte countOrd ered By: Irvin Mckenna on 01-10-2025 Lymphocytes Auto (Unsp spec) [#/Vol] 1.16 10*3/uL 0.83-4.51 [facility] Anion gap in Serum or Plasma Ordered By: Irvin Mckenna on 01-10-2025 Anion gap [Moles/Vol] 9 mmol/L 5- [facility] Automated lymphocyte count a s percentage of total leukocytesOrdered By: Irvin Mckenna on 01-10-2025 Lymphocytes/100 WBC Auto (Unsp spec) 34.3 % - [facility] BUN/creatinine ratioOrdered By: Irvin Mckenna on 01-10-2025 Urea nitrogen/Creatinine [Mass ratio] 20.4 mg/mg High 10- [facility] Basophil percentageOrdered B y: Irvin Mckenna on 01-10-2025 Basophils/100 WBC (Bld) 0.6 % 0-1 [facility] Carbon dioxide, total [Moles /volume] in Central venous bloodOrdered By: Irvin Mckenna on 01-10-2025 CO2 [Moles/Vol] 23.7 mmol/L 21.0-32.0 [facility] Chloride assayOrdered By: Layo Mckenna on 01-10-2025 Chloride [Moles/Vol] 104 mmol/L 98-108 [facility] Eosinophil percentageOrdered By: froymemphisjenni Mckenna on 01-10-2025 Eosinophils/100 WBC (Bld) 2.1 % 0-5 [facility] Erythrocyte distribution wid th ratioOrdered By: Irvin Mckenna on 01-10-2025 Erythrocyte distribution width (RBC) [Ratio] 14.9 % High 11.6-14.6 [facility] Erythrocyte distribution wid th standard deviationOrdered By: Irvin Mckenna on 01-10-2025 Erythrocyte distribution width (RBC) [Ratio] 61.7 fl High 35.1-43.9 [facility] Glomerular filtration rate ( GFR) estimation/1.73 sq m using serum, plasma, or whole bOrdered By: Irvin Mckenna on 01-10-2025 GFR/1.73 sq M.predicted among non-blacks MDRD (S/P/Bld) [Vol rate/Area] 76 mL/min/{1.73_m2} >60 [facility] Hematocrit Auto (Bld) [Volum e fraction]Ordered By: Irvin Mckenna on 01-10-2025 Hematocrit (Bld) [Volume fraction] 30.0 % Low 37-47 [facility] Hemoglobin measurementOrdere d By: Irvin Mckenna on 01-10-2025 Hemoglobin (Bld) [Mass/Vol] 9.9 g/dL Low 12.0-15.0 [facility] Immature granulocytes/100 WB C Auto (Bld)Ordered By: Irvin Mckenna on 01-10-2025 Immature granulocytes/100 WBC (Bld) 0.600 % 0.0-0.9 [facility] MCV (mean corpuscular volume ) determinationOrdered By: Irvin Mckenna on 01-10-2025 MCV (RBC) [Entitic vol] 112.8 fL High 81-99 [facility] Mean corpuscular hemoglobin (MCH) determinationOrdered By: beatris Mckenna on 01-10-2025 MCH (RBC) [Entitic mass] 37.2 pg High 27.0-32.0 [facility] Monocyte percentageOrdered B y: Irvin Mckenna on 01-10-2025 Monocytes/100 WBC (Bld) 6.2 % 0-10 [facility] Neutrophil percentageOrdered By: Irvin Mckenna on 01-10-2025 Neutrophils/100 WBC (Bld) 56.2 % 47-70 [facility] Platelet countOrdered By: Layo Mckenna on 01-10-2025 Platelets (Bld) [#/Vol] 158 10*3/uL 150-450 [facility] Potassium measurement (mass/ volume)Ordered By: Irvin Mckenna on 01-10-2025 Potassium (Unsp spec) [Mass/Vol] 3.8 mmol/L 3.3-5.1 [facility] RBC Auto (Bld) [#/Vol]Ordere d By: Irvin Mckenna on 01-10-2025 RBC (Bld) [#/Vol] 2.66 10*6/uL Low 4.2-5.4 [facility] Serum creatinine measurement (mass/volume)Ordered By: Anupamcandicejenni Mezajerilynelier on 01-10-2025 Creatinine [Mass/Vol] 0.78 mg/dL 0.70-1.20 [facility] Serum glucose measurement (m ass/volume)Ordered By: Irvin Mezajerilynelier on 01-10-2025 Glucose [Mass/Vol] 82 mg/dL 70-99 [facility] Serum or plasma calcium niels urement (mass/volume)Ordered By: Irvin Mezajerilynelier on 01-10-2025 Calcium [Mass/Vol] 8.9 mg/dL 7.6-11.0 [facility] Serum or plasma urea nitroge n measurement (mass/volume)Ordered By: Layofroycandicejenni Mezajerilynelier on 01-10-2025 Urea nitrogen [Mass/Vol] 16 mg/dL 4-19 [facility] Sodium levelOrdered By: Anupam hearn Derrickjerilynelier on 01-10-2025 Sodium [Moles/Vol] 137 mmol/L 133-145 [facility] White blood cell (WBC) count Ordered By: Layofroycandicejenni Mezajerilynelier on 01-10-2025 WBC (Bld) [#/Vol] 3.4 10*3/uL Low 4.4-11.0 [facility] Absolute lymphocyte countOrd ered By: Layofroycandicejenni Mezajerilynelier on 01-03-2025 Lymphocytes Auto (Unsp spec) [#/Vol] 1.09 10*3/uL 0.83-4.51 [facility] Anion gap in Serum or Plasma Ordered By: Layobeatris Mezajerilynelier on 01-03-2025 Anion gap [Moles/Vol] 11 mmol/L 5-15 [facility] Automated lymphocyte count a s percentage of total leukocytesOrdered By: Irvin Mezajerilynelier on 01-03-2025 Lymphocytes/100 WBC Auto (Unsp spec) 29.4 % 19-41 [facility] BUN/creatinine ratioOrdered By: Layofroycandicejenni Mezajerilynelier on 01-03-2025 Urea nitrogen/Creatinine [Mass ratio] 18.6 mg/mg 10-20 [facility] Basophil percentageOrdered B y: Anupamcandicejenni Mezajerilynelier on 01-03-2025 Basophils/100 WBC (Bld) 0.5 % 0-1 [facility] Carbon dioxide, total [Moles /volume] in Central venous bloodOrdered By: beatris Mckenna on 01-03-2025 CO2 [Moles/Vol] 22.3 mmol/L 21.0-32.0 [facility] Chloride assayOrdered By: Layo froynadiya Mckenna on 01-03-2025 Chloride [Moles/Vol] 103 mmol/L 98-108 [facility] Eosinophil percentageOrdered By: Irvin Mckenna on 01-03-2025 Eosinophils/100 WBC (Bld) 1.6 % 0-5 [facility] Erythrocyte distribution wid th ratioOrdered By: froycandicejenni Mckenna on 01-03-2025 Erythrocyte distribution width (RBC) [Ratio] 14.7 % High 11.6-14.6 [facility] Erythrocyte distribution wid th standard deviationOrdered By: beatris Mezajerilynelier on 01-03-2025 Erythrocyte distribution width (RBC) [Ratio] 61.6 fl High 35.1-43.9 [facility] Glomerular filtration rate ( GFR) estimation/1.73 sq m using serum, plasma, or whole bOrdered By: Irvin Mckenna on 01-03-2025 GFR/1.73 sq M.predicted among non-blacks MDRD (S/P/Bld) [Vol rate/Area] 57 mL/min/{1.73_m2} Low >60 [facility] Hematocrit Auto (Bld) [Volum e fraction]Ordered By: Irvin Mckenna on 01-03-2025 Hematocrit (Bld) [Volume fraction] 30.5 % Low 37-47 [facility] Hemoglobin measurementOrdere d By: Irvin Mckenna on 01-03-2025 Hemoglobin (Bld) [Mass/Vol] 10.1 g/dL Low 12.0-15.0 [facility] Immature granulocytes/100 WB C Auto (Bld)Ordered By: Layofroynadiya Derrickjerilynelier on 01-03-2025 Immature granulocytes/100 WBC (Bld) 0.500 % 0.0-0.9 [facility] MCV (mean corpuscular volume ) determinationOrdered By: Layobeatris Mezajerilynelier on 01-03-2025 MCV (RBC) [Entitic vol] 114.2 fL High 81-99 [facility] Mean corpuscular hemoglobin (MCH) determinationOrdered By: Layofroycandicejenni Mezajerilynelier on 01-03-2025 MCH (RBC) [Entitic mass] 37.8 pg High 27.0-32.0 [facility] Monocyte percentageOrdered B y: Layofroycandicejenni Mezajerilynelier on 01-03-2025 Monocytes/100 WBC (Bld) 8.6 % 0-10 [facility] Neutrophil percentageOrdered By: Anupamcandicejenni Mezajerilynelier on 01-03-2025 Neutrophils/100 WBC (Bld) 59.4 % 47-70 [facility] Platelet countOrdered By: Layo spear Derrickjerilynelier on 01-03-2025 Platelets (Bld) [#/Vol] 200 10*3/uL 150-450 [facility] Potassium measurement (mass/ volume)Ordered By: Layobeatris Mezajerilynelier on 01-03-2025 Potassium (Unsp spec) [Mass/Vol] 3.9 mmol/L 3.3-5.1 [facility] RBC Auto (Bld) [#/Vol]Ordere d By: Irvin Derrickjerilynelier on 01-03-2025 RBC (Bld) [#/Vol] 2.67 10*6/uL Low 4.2-5.4 [facility] Serum creatinine measurement (mass/volume)Ordered By: Irvin Mckenna on 01-03-2025 Creatinine [Mass/Vol] 0.99 mg/dL 0.70-1.20 [facility] Serum glucose measurement (m ass/volume)Ordered By: Irvin Mckenna on 01-03-2025 Glucose [Mass/Vol] 81 mg/dL 70-99 [facility] Serum or plasma calcium niels urement (mass/volume)Ordered By: Irvin Mckenna on 01-03-2025 Calcium [Mass/Vol] 9.4 mg/dL 7.6-11.0 [facility] Serum or plasma urea nitroge n measurement (mass/volume)Ordered By: Irvin Mckenna on 01-03-2025 Urea nitrogen [Mass/Vol] 19 mg/dL 4-19 [facility] Sodium levelOrdered By: Anupam nadiya Bala on 01-03-2025 Sodium [Moles/Vol] 136 mmol/L 133-145 [facility] White blood cell (WBC) count Ordered By: Irvin Mckenna on 01-03-2025 WBC (Bld) [#/Vol] 3.7 10*3/uL Low 4.4-11.0 [facility] Absolute lymphocyte countOrd ered By: Irvin Mckenna on 12-28-2024 Lymphocytes Auto (Unsp spec) [#/Vol] 1.22 10*3/uL 0.83-4.51 [facility] Anion gap in Serum or Plasma Ordered By: Irvin Mckenna on 12-28-2024 Anion gap [Moles/Vol] 9 mmol/L - [facility] Automated lymphocyte count a s percentage of total leukocytesOrdered By: Irvin Mckenna on 12-28-2024 Lymphocytes/100 WBC Auto (Unsp spec) 35.5 % 19-41 [facility] BUN/creatinine ratioOrdered By: Irvin Mckenna on 12-28-2024 Urea nitrogen/Creatinine [Mass ratio] 18.4 mg/mg 10-20 [facility] Basophil percentageOrdered B y: Irvin Mckenna on 12-28-2024 Basophils/100 WBC (Bld) 0.9 % 0-1 [facility] Blood manual differential co mment interpretation (narrative result)Ordered By: Irvin Mckenna on 12-28-2024 Manual differential comment Jack (Bld) [Interp] SCANNED [facility] Blood stomatocytes detection by light microscopyOrdered By: Irvin Mckenna on 12-28-2024 Stomatocytes LM Ql (Bld) RARE [facility] Carbon dioxide, total [Moles /volume] in Central venous bloodOrdered By: Irvin Mckenna on 12-28-2024 CO2 [Moles/Vol] 22.7 mmol/L 21.0-32.0 [facility] Chloride assayOrdered By: Layo Mckenna on 12-28-2024 Chloride [Moles/Vol] 104 mmol/L 98-108 [facility] Eosinophil percentageOrdered By: Irvin Mckenna on 12-28-2024 Eosinophils/100 WBC (Bld) 1.2 % 0-5 [facility] Erythrocyte distribution wid th ratioOrdered By: Irvin Mckenna on 12-28-2024 Erythrocyte distribution width (RBC) [Ratio] 15.2 % High 11.6-14.6 [facility] Erythrocyte distribution wid th standard deviationOrdered By: Irvin Mckenna on 12-28-2024 Erythrocyte distribution width (RBC) [Ratio] 65.6 fl High 35.1-43.9 [facility] Glomerular filtration rate ( GFR) estimation/1.73 sq m using serum, plasma, or whole bOrdered By: Irvin Mckenna on 12-28-2024 GFR/1.73 sq M.predicted among non-blacks MDRD (S/P/Bld) [Vol rate/Area] 42 mL/min/{1.73_m2} Low >60 [facility] Hematocrit Auto (Bld) [Volum e fraction]Ordered By: Irvin Mckenna on 12-28-2024 Hematocrit (Bld) [Volume fraction] 30.1 % Low 37-47 [facility] Hemoglobin measurementOrdere d By: Irvin Mckenna on 12-28-2024 Hemoglobin (Bld) [Mass/Vol] 9.7 g/dL Low 12.0-15.0 [facility] Immature granulocytes/100 WB C Auto (Bld)Ordered By: Irvin Mckenna on 12-28-2024 Immature granulocytes/100 WBC (Bld) 0.600 % 0.0-0.9 [facility] MCV (mean corpuscular volume ) determinationOrdered By: Irvin Mckenna on 12-28-2024 MCV (RBC) [Entitic vol] 117.1 fL High 81-99 [facility] Mean corpuscular hemoglobin (MCH) determinationOrdered By: Irvin Mckenna on 12-28-2024 MCH (RBC) [Entitic mass] 37.7 pg High 27.0-32.0 [facility] Monocyte percentageOrdered B y: Irvin Mckenna on 12-28-2024 Monocytes/100 WBC (Bld) 11.3 % High 0-10 [facility] Neutrophil percentageOrdered By: Irvin Mckenna on 12-28-2024 Neutrophils/100 WBC (Bld) 50.5 % 47-70 [facility] Platelet countOrdered By: Layo Mckenna on 12-28-2024 Platelets (Bld) [#/Vol] 233 10*3/uL 150-450 [facility] Potassium measurement (mass/ volume)Ordered By: Irvin Mckenna on 12-28-2024 Potassium (Unsp spec) [Mass/Vol] 4.7 mmol/L 3.3-5.1 [facility] RBC Auto (Bld) [#/Vol]Ordere d By: Irvin Mckenna on 12-28-2024 RBC (Bld) [#/Vol] 2.57 10*6/uL Low 4.2-5.4 [facility] Serum creatinine measurement (mass/volume)Ordered By: Irvin Mckenna on 12-28-2024 Creatinine [Mass/Vol] 1.29 mg/dL High 0.70-1.20 [facility] Serum glucose measurement (m ass/volume)Ordered By: Irvin Mckenna on 12-28-2024 Glucose [Mass/Vol] 82 mg/dL 70-99 [facility] Serum or plasma calcium niels urement (mass/volume)Ordered By: Irvin Mckenna on 12-28-2024 Calcium [Mass/Vol] 9.0 mg/dL 7.6-11.0 [facility] Serum or plasma urea nitroge n measurement (mass/volume)Ordered By: Irvin Mckenna on 12-28-2024 Urea nitrogen [Mass/Vol] 24 mg/dL High 4-19 [facility] Sodium levelOrdered By: Anupam nadiya Bala on 12-28-2024 Sodium [Moles/Vol] 136 mmol/L 133-145 [facility] White blood cell (WBC) count Ordered By: Irvin Mckenna on 12-28-2024 WBC (Bld) [#/Vol] 3.4 10*3/uL Low 4.4-11.0 [facility] Absolute lymphocyte countOrd ered By: Irvin Mckenna on 12-20-2024 Lymphocytes Auto (Unsp spec) [#/Vol] 0.83 10*3/uL 0.83-4.51 [facility] Anion gap in Serum or Plasma Ordered By: Irvin Mckenna on 12-20-2024 Anion gap [Moles/Vol] 11 mmol/L 5-15 [facility] Automated lymphocyte count a s percentage of total leukocytesOrdered By: Irvin Mckenna on 12-20-2024 Lymphocytes/100 WBC Auto (Unsp spec) 19.3 % 19-41 [facility] BUN/creatinine ratioOrdered By: Irvin Mckenna on 12-20-2024 Urea nitrogen/Creatinine [Mass ratio] 17.8 mg/mg 10-20 [facility] Basophil percentageOrdered B y: Irvin Mckenna on 12-20-2024 Basophils/100 WBC (Bld) 0.5 % 0-1 [facility] Carbon dioxide, total [Moles /volume] in Central venous bloodOrdered By: Irvin Mckenna on 12-20-2024 CO2 [Moles/Vol] 20.7 mmol/L Low 21.0-32.0 [facility] Chloride assayOrdered By: Layo Mckenna on 12-20-2024 Chloride [Moles/Vol] 104 mmol/L 98-108 [facility] Eosinophil percentageOrdered By: Irvin Mckenna on 12-20-2024 Eosinophils/100 WBC (Bld) 1.2 % 0-5 [facility] Erythrocyte distribution wid th ratioOrdered By: Irvin Mckenna on 12-20-2024 Erythrocyte distribution width (RBC) [Ratio] 15.6 % High 11.6-14.6 [facility] Erythrocyte distribution wid th standard deviationOrdered By: Irvin Mckenna on 12-20-2024 Erythrocyte distribution width (RBC) [Ratio] 66.5 fl High 35.1-43.9 [facility] Glomerular filtration rate ( GFR) estimation/1.73 sq m using serum, plasma, or whole bOrdered By: Irvin Mckenna on 12-20-2024 GFR/1.73 sq M.predicted among non-blacks MDRD (S/P/Bld) [Vol rate/Area] 58 mL/min/{1.73_m2} Low >60 [facility] Hematocrit Auto (Bld) [Volum e fraction]Ordered By: Irvin Mckenna on 12-20-2024 Hematocrit (Bld) [Volume fraction] 28.0 % Low 37-47 [facility] Hemoglobin measurementOrdere d By: Irvin Mckenna on 12-20-2024 Hemoglobin (Bld) [Mass/Vol] 9.1 g/dL Low 12.0-15.0 [facility] Immature granulocytes/100 WB C Auto (Bld)Ordered By: Irvin Mckenna on 12-20-2024 Immature granulocytes/100 WBC (Bld) 0.500 % 0.0-0.9 [facility] MCV (mean corpuscular volume ) determinationOrdered By: Irvin Mckenna on 12-20-2024 MCV (RBC) [Entitic vol] 116.2 fL High 81-99 [facility] Mean corpuscular hemoglobin (MCH) determinationOrdered By: Irvin Mckenna on 12-20-2024 MCH (RBC) [Entitic mass] 37.8 pg High 27.0-32.0 [facility] Monocyte percentageOrdered B y: Irvin Mckenna on 12-20-2024 Monocytes/100 WBC (Bld) 9.1 % 0-10 [facility] Neutrophil percentageOrdered By: Irvin Mckenna on 12-20-2024 Neutrophils/100 WBC (Bld) 69.4 % 47-70 [facility] No Panel InformationOrdered By: Irvin Walkere on 12-20-2024 1+ [facility] Platelet countOrdered By: Layo beatris Derrickjerilynelier on 12-20-2024 Platelets (Bld) [#/Vol] 281 10*3/uL 150-450 [facility] Potassium measurement (mass/ volume)Ordered By: Anupamcandicejenni Mckenna on 12-20-2024 Potassium (Unsp spec) [Mass/Vol] 4.3 mmol/L 3.3-5.1 [facility] RBC Auto (Bld) [#/Vol]Ordere d By: Anupamcandicejenni Mckenna on 12-20-2024 RBC (Bld) [#/Vol] 2.41 10*6/uL Low 4.2-5.4 [facility] Serum creatinine measurement (mass/volume)Ordered By: Anupamcandicejenni Mckenna on 12-20-2024 Creatinine [Mass/Vol] 0.98 mg/dL 0.70-1.20 [facility] Serum glucose measurement (m ass/volume)Ordered By: Irvin Mckenna on 12-20-2024 Glucose [Mass/Vol] 80 mg/dL 70-99 [facility] Serum or plasma calcium niels urement (mass/volume)Ordered By: Irvin Mckenna on 12-20-2024 Calcium [Mass/Vol] 8.9 mg/dL 7.6-11.0 [facility] Serum or plasma urea nitroge n measurement (mass/volume)Ordered By: Irvin Mckenna on 12-20-2024 Urea nitrogen [Mass/Vol] 18 mg/dL 4-19 [facility] Sodium levelOrdered By: Anupam hearn Bala on 12-20-2024 Sodium [Moles/Vol] 135 mmol/L 133-145 [facility] White blood cell (WBC) count Ordered By: Irvin Mckenna on 12-20-2024 WBC (Bld) [#/Vol] 4.3 10*3/uL Low 4.4-11.0 [facility] Absolute lymphocyte countOrd ered By: Irvin Mckenna on 12-13-2024 Lymphocytes Auto (Unsp spec) [#/Vol] 0.72 10*3/uL Low 0.83-4.51 [facility] Anion gap in Serum or Plasma Ordered By: Irvin Mckenna on 12-13-2024 Anion gap [Moles/Vol] 11 mmol/L 5-15 [facility] Automated lymphocyte count a s percentage of total leukocytesOrdered By: Irvin Mckenna on 12-13-2024 Lymphocytes/100 WBC Auto (Unsp spec) 17.1 % Low 19-41 [facility] BUN/creatinine ratioOrdered By: froymemphisjenni Mckenna on 12-13-2024 Urea nitrogen/Creatinine [Mass ratio] 18.2 mg/mg 10-20 [facility] Basophil percentageOrdered B y: Irvin Mckenna on 12-13-2024 Basophils/100 WBC (Bld) 0.5 % 0-1 [facility] Carbon dioxide, total [Moles /volume] in Central venous bloodOrdered By: Anupammemphisjenni Mckenna on 12-13-2024 CO2 [Moles/Vol] 21.8 mmol/L 21.0-32.0 [facility] Chloride assayOrdered By: Layo froynadiya Mckenna on 12-13-2024 Chloride [Moles/Vol] 101 mmol/L 98-108 [facility] Eosinophil percentageOrdered By: froymemphisjenni Mckenna on 12-13-2024 Eosinophils/100 WBC (Bld) 0.7 % 0-5 [facility] Erythrocyte distribution wid th ratioOrdered By: Irvin Mckenna on 12-13-2024 Erythrocyte distribution width (RBC) [Ratio] 15.6 % High 11.6-14.6 [facility] Erythrocyte distribution wid th standard deviationOrdered By: froymemphisjenni Mckenna on 12-13-2024 Erythrocyte distribution width (RBC) [Ratio] 67.1 fl High 35.1-43.9 [facility] Glomerular filtration rate ( GFR) estimation/1.73 sq m using serum, plasma, or whole bOrdered By: Irvin Mckenna on 12-13-2024 GFR/1.73 sq M.predicted among non-blacks MDRD (S/P/Bld) [Vol rate/Area] 66 mL/min/{1.73_m2} >60 [facility] Hematocrit Auto (Bld) [Volum e fraction]Ordered By: Irvin Mezajerilynelier on 12-13-2024 Hematocrit (Bld) [Volume fraction] 29.1 % Low 37-47 [facility] Hemoglobin measurementOrdere d By: Layofroynadiya Derrickmag on 12-13-2024 Hemoglobin (Bld) [Mass/Vol] 9.8 g/dL Low 12.0-15.0 [facility] Immature granulocytes/100 WB C Auto (Bld)Ordered By: Layofroycandicejenni Mezajerilynelier on 12-13-2024 Immature granulocytes/100 WBC (Bld) 0.500 % 0.0-0.9 [facility] MCV (mean corpuscular volume ) determinationOrdered By: Irvin Mezajerilynelier on 12-13-2024 MCV (RBC) [Entitic vol] 115.5 fL High 81-99 [facility] Mean corpuscular hemoglobin (MCH) determinationOrdered By: Layobeatris Mezajerilynelier on 12-13-2024 MCH (RBC) [Entitic mass] 38.9 pg High 27.0-32.0 [facility] Monocyte percentageOrdered B y: Irvin Derrickmag on 12-13-2024 Monocytes/100 WBC (Bld) 12.8 % High 0-10 [facility] Neutrophil percentageOrdered By: Layofroynadiya Derrickmag on 12-13-2024 Neutrophils/100 WBC (Bld) 68.4 % 47-70 [facility] No Panel InformationOrdered By: Anupamcandicejenni Mezajerilynelier on 12-13-2024 1+ [facility] Platelet countOrdered By: Layo beatris Derrickjerilynelier on 12-13-2024 Platelets (Bld) [#/Vol] 233 10*3/uL 150-450 [facility] Potassium measurement (mass/ volume)Ordered By: Layofroycandicejenni Mezajerilynelier on 12-13-2024 Potassium (Unsp spec) [Mass/Vol] 4.0 mmol/L 3.3-5.1 [facility] RBC Auto (Bld) [#/Vol]Ordere d By: Anupamcandicejenni Mezajerilynelier on 12-13-2024 RBC (Bld) [#/Vol] 2.52 10*6/uL Low 4.2-5.4 [facility] Serum creatinine measurement (mass/volume)Ordered By: Irvin Mckenna on 12-13-2024 Creatinine [Mass/Vol] 0.88 mg/dL 0.70-1.20 [facility] Serum glucose measurement (m ass/volume)Ordered By: Layofroynadiya Derrickmag on 12-13-2024 Glucose [Mass/Vol] 93 mg/dL 70-99 [facility] Serum or plasma calcium niels urement (mass/volume)Ordered By: Irvin Mckenna on 12-13-2024 Calcium [Mass/Vol] 9.0 mg/dL 7.6-11.0 [facility] Serum or plasma urea nitroge n measurement (mass/volume)Ordered By: Irvin Mckenna on 12-13-2024 Urea nitrogen [Mass/Vol] 16 mg/dL 4-19 [facility] Sodium levelOrdered By: Anupam Mckenna on 12-13-2024 Sodium [Moles/Vol] 134 mmol/L 133-145 [facility] White blood cell (WBC) count Ordered By: Irvin Mckenna on 12-13-2024 WBC (Bld) [#/Vol] 4.2 10*3/uL Low 4.4-11.0 [facility] Potassium measurement (mass/ volume)Ordered By: Irvin Mckenna on 12-08-2024 Potassium (Unsp spec) [Mass/Vol] 3.9 mmol/L 3.3-5.1 [facility] Absolute lymphocyte countOrd ered By: Irvin Mckenna on 12-06-2024 Lymphocytes Auto (Unsp spec) [#/Vol] 0.86 10*3/uL 0.83-4.51 [facility] Anion gap in Serum or Plasma Ordered By: Irvin Mckenna on 12-06-2024 Anion gap [Moles/Vol] 13 mmol/L 5-15 [facility] Automated lymphocyte count a s percentage of total leukocytesOrdered By: Layofroycandicejenni Mezamag on 12-06-2024 Lymphocytes/100 WBC Auto (Unsp spec) 23.6 % 19-41 [facility] BUN/creatinine ratioOrdered By: Layofroycandicejenni Mezajerilynelier on 12-06-2024 Urea nitrogen/Creatinine [Mass ratio] 13.2 mg/mg 10-20 [facility] Basophil percentageOrdered B y: Irvin Mckenna on 12-06-2024 Basophils/100 WBC (Bld) 0.3 % 0-1 [facility] Carbon dioxide, total [Moles /volume] in Central venous bloodOrdered By: Irvin Mckenna on 12-06-2024 CO2 [Moles/Vol] 24.6 mmol/L 21.0-32.0 [facility] Chloride assayOrdered By: Layo froynadiya Mckenna on 12-06-2024 Chloride [Moles/Vol] 100 mmol/L 98-108 [facility] Eosinophil percentageOrdered By: froymemphisjenni Mezajerilynelier on 12-06-2024 Eosinophils/100 WBC (Bld) 1.9 % 0-5 [facility] Erythrocyte distribution wid th ratioOrdered By: Layobeatris Mckenna on 12-06-2024 Erythrocyte distribution width (RBC) [Ratio] 16.0 % High 11.6-14.6 [facility] Erythrocyte distribution wid th standard deviationOrdered By: froymemphisjenni Mezajerilynelier on 12-06-2024 Erythrocyte distribution width (RBC) [Ratio] 66.8 fl High 35.1-43.9 [facility] Glomerular filtration rate ( GFR) estimation/1.73 sq m using serum, plasma, or whole bOrdered By: Irvin Mckenna on 12-06-2024 GFR/1.73 sq M.predicted among non-blacks MDRD (S/P/Bld) [Vol rate/Area] 83 mL/min/{1.73_m2} >60 [facility] Hematocrit Auto (Bld) [Volum e fraction]Ordered By: Irvin Mckenna on 12-06-2024 Hematocrit (Bld) [Volume fraction] 30.0 % Low 37-47 [facility] Hemoglobin measurementOrdere d By: Irvin Mckenna on 12-06-2024 Hemoglobin (Bld) [Mass/Vol] 10.1 g/dL Low 12.0-15.0 [facility] Immature granulocytes/100 WB C Auto (Bld)Ordered By: Irvin Walkerelier on 12-06-2024 Immature granulocytes/100 WBC (Bld) 0.300 % 0.0-0.9 [facility] MCV (mean corpuscular volume ) determinationOrdered By: Layofroycandicejenni Mezajerilynelier on 12-06-2024 MCV (RBC) [Entitic vol] 113.2 fL High 81-99 [facility] Mean corpuscular hemoglobin (MCH) determinationOrdered By: Layofroynadiya Derrickjerilynelier on 12-06-2024 MCH (RBC) [Entitic mass] 38.1 pg High 27.0-32.0 [facility] Monocyte percentageOrdered B y: Irvin Derrickmag on 12-06-2024 Monocytes/100 WBC (Bld) 12.9 % High 0-10 [facility] Neutrophil percentageOrdered By: Irvin Mezajerilynelier on 12-06-2024 Neutrophils/100 WBC (Bld) 61.0 % 47-70 [facility] No Panel InformationOrdered By: Anupamnadiya Derrickjerilynelier on 12-06-2024 RARE [facility] Platelet countOrdered By: Layo beatris Derrickmag on 12-06-2024 Platelets (Bld) [#/Vol] 272 10*3/uL 150-450 [facility] Potassium measurement (mass/ volume)Ordered By: Layobeatris Mezajerilynelier on 12-06-2024 Potassium (Unsp spec) [Mass/Vol] 3.0 mmol/L Low 3.3-5.1 [facility] RBC Auto (Bld) [#/Vol]Ordere d By: Krystinjenni eMzajerilynelier on 12-06-2024 RBC (Bld) [#/Vol] 2.65 10*6/uL Low 4.2-5.4 [facility] Serum creatinine measurement (mass/volume)Ordered By: Layobeatris Mezajerilynelier on 12-06-2024 Creatinine [Mass/Vol] 0.73 mg/dL 0.70-1.20 [facility] Serum glucose measurement (m ass/volume)Ordered By: Irvin Mckenna on 12-06-2024 Glucose [Mass/Vol] 87 mg/dL 70-99 [facility] Serum or plasma calcium niels urement (mass/volume)Ordered By: Krystinjenni Mezajerilynelier on 12-06-2024 Calcium [Mass/Vol] 9.2 mg/dL 7.6-11.0 [facility] Serum or plasma urea nitroge n measurement (mass/volume)Ordered By: Layofroycandicejenni Mezajerilynelier on 12-06-2024 Urea nitrogen [Mass/Vol] 10 mg/dL 4-19 [facility] Sodium levelOrdered By: Anupam Mckenna on 12-06-2024 Sodium [Moles/Vol] 137 mmol/L 133-145 [facility] White blood cell (WBC) count Ordered By: Irvin Derrickmag on 12-06-2024 WBC (Bld) [#/Vol] 3.6 10*3/uL Low 4.4-11.0 [facility] Basic Metabolic Profile (BMP )on 12-01-2024 BUN Normal 4-19 [facility] Comment on above: Result Comment: Canc elled via OM: Order cancelled - Patient discharged Performed By: #### L 100.0100, L500.2500 ####[facility] [address] [facility] [address] BUN/CRE Normal 10-20 [facility] Comment on above: Result Comment: Canc elled via OM: Order cancelled - Patient discharged Performed By: #### L 100.0100, L500.2500 ####[facility] [address] [place], [address] Calcium Normal 7.6-11.0 [facility] Comment on above: Result Comment: Canc elled via OM: Order cancelled - Patient discharged Performed By: #### L 100.0100, L500.2500 ####[facility] [address] [place], [address] CL Normal 98-108 [facility] Comment on above: Result Comment: Canc elled via OM: Order cancelled - Patient discharged Performed By: #### L 100.0100, L500.2500 ####[facility] [address] [place], [address] CO2 Normal 21.0-32.0 [facility] Comment on above: Result Comment: Canc elled via OM: Order cancelled - Patient discharged Performed By: #### L 100.0100, L500.2500 ####[facility] [address] [place], [address] CREAT,SERUM Normal 0.70-1.20 [facility] Comment on above: Result Comment: Canc elled via OM: Order cancelled - Patient discharged Performed By: #### L 100.0100, L500.2500 ####[facility] [address] [place], [address] eGFR Normal >60 [facility] Comment on above: Result Comment: Canc elled via OM: Order cancelled - Patient discharged Performed By: #### L 100.0100, L500.2500 ####[facility] [address] [place], [address] GAP Normal 5-15 [facility] Comment on above: Result Comment: Canc elled via OM: Order cancelled - Patient discharged Performed By: #### L 100.0100, L500.2500 ####[facility] [address] [place], [address] GLU Normal 70-99 [facility] Comment on above: Result Comment: Canc elled via OM: Order cancelled - Patient discharged Performed By: #### L 100.0100, L500.2500 ####[facility] [address] [place], [address] Potassium Normal 3.3-5.1 [facility] Comment on above: Result Comment: Canc elled via OM: Order cancelled - Patient discharged Performed By: #### L 100.0100, L500.2500 ####[facility] [address] [place], [address] Basic Metabolic Profile (BMP) Normal 133-145 [facility] Comment on above: Result Comment: Canc elled via OM: Order cancelled - Patient discharged Performed By: #### L 100.0100, L500.2500 ####[facility] [address] [place], [address] CBC W/Diff, Automatedon - Absolute Neut Normal 2.0-7.7 [facility] Comment on above: Result Comment: Canc elled via OM: Order cancelled - Patient discharged Performed By: #### L 100.0100, L500.2500 ####[facility] [address] [place], [address] HCT Normal 37-47 [facility] Comment on above: Result Comment: Canc elled via OM: Order cancelled - Patient discharged Performed By: #### L 100.0100, L500.2500 ####[facility] [address] [place], [address] HGB Normal 12.0-15.0 [facility] Comment on above: Result Comment: Canc elled via OM: Order cancelled - Patient discharged Performed By: #### L 100.0100, L500.2500 ####[facility] [address] [place], [address] MCH Normal 27.0-32.0 [facility] Comment on above: Result Comment: Canc elled via OM: Order cancelled - Patient discharged Performed By: #### L 100.0100, L500.2500 ####[facility] [address] [place], [address] MCHC Normal 32-36 [facility] Comment on above: Result Comment: Canc elled via OM: Order cancelled - Patient discharged Performed By: #### L 100.0100, L500.2500 ####[facility] [address] [place], [address] MCV Normal 81-99 [facility] Comment on above: Result Comment: Canc elled via OM: Order cancelled - Patient discharged Performed By: #### L 100.0100, L500.2500 ####[facility] [address] [place], [address] NEUT% Normal 47-70 [facility] Comment on above: Result Comment: Canc elled via OM: Order cancelled - Patient discharged Performed By: #### L 100.0100, L500.2500 ####[facility] [address] [place], [address] PLT Normal 150-450 [facility] Comment on above: Result Comment: Canc elled via OM: Order cancelled - Patient discharged Performed By: #### L 100.0100, L500.2500 ####[facility] [address] [place], [address] RBC Normal 4.2-5.4 [facility] Comment on above: Result Comment: Canc elled via OM: Order cancelled - Patient discharged Performed By: #### L 100.0100, L500.2500 ####[facility] [address] [place], [address] RDW CV Normal 11.6-14.6 [facility] Comment on above: Result Comment: Canc elled via OM: Order cancelled - Patient discharged Performed By: #### L 100.0100, L500.2500 ####[facility] [address] [place], [address] RDW SD Normal 35.1-43.9 [facility] Comment on above: Result Comment: Canc elled via OM: Order cancelled - Patient discharged Performed By: #### L 100.0100, L500.2500 ####[facility] [address] [place], [address] WBC Normal 4.4-11.0 [facility] Comment on above: Result Comment: Canc elled via OM: Order cancelled - Patient discharged Performed By: #### L 100.0100, L500.2500 ####[facility] [address] [place], [address] Absolute lymphocyte countOrd ered By: Irvin Mckenna on 11-29-2024 Lymphocytes Auto (Unsp spec) [#/Vol] 0.83 10*3/uL 0.83-4.51 [facility] Anion gap in Serum or Plasma Ordered By: beatris Mckenna on 11-29-2024 Anion gap [Moles/Vol] 13 mmol/L 5-15 [facility] Automated lymphocyte count a s percentage of total leukocytesOrdered By: Irvin Mckenna on 11-29-2024 Lymphocytes/100 WBC Auto (Unsp spec) 21.6 % 19-41 [facility] BUN/creatinine ratioOrdered By: Irvin Mckenna on 11-29-2024 Urea nitrogen/Creatinine [Mass ratio] 10.7 mg/mg 10-20 [facility] Basophil percentageOrdered B y: Irvin Mckenna on 11-29-2024 Basophils/100 WBC (Bld) 0.3 % 0-1 [facility] Bilirubin, totalOrdered By: Irvin Mckenna on 11-29-2024 Bilirubin [Mass/Vol] 0.57 mg/dL 0.00-1.30 [facility] Carbon dioxide, total [Moles /volume] in Central venous bloodOrdered By: beatris Mckenna on 11-29-2024 CO2 [Moles/Vol] 22.7 mmol/L 21.0-32.0 [facility] Chloride assayOrdered By: Layo Mckenna on 11-29-2024 Chloride [Moles/Vol] 101 mmol/L 98-108 [facility] Eosinophil percentageOrdered By: Anupammemphisjenni Mckenna on 11-29-2024 Eosinophils/100 WBC (Bld) 1.3 % 0-5 [facility] Erythrocyte distribution wid th ratioOrdered By: Irvin Mckenna on 11-29-2024 Erythrocyte distribution width (RBC) [Ratio] 16.8 % High 11.6-14.6 [facility] Erythrocyte distribution wid th standard deviationOrdered By: Irvin Mckenna on 11-29-2024 Erythrocyte distribution width (RBC) [Ratio] 71.7 fl High 35.1-43.9 [facility] Folate [Moles/volume] in Ser um or PlasmaOrdered By: Irvin Mckenna on 11-29-2024 Folate [Moles/Vol] 28.00 ng/mL 4.60-34.80 [facility] Glomerular filtration rate ( GFR) estimation/1.73 sq m using serum, plasma, or whole bOrdered By: Irvin Mckenna on 11-29-2024 GFR/1.73 sq M.predicted among non-blacks MDRD (S/P/Bld) [Vol rate/Area] 69 mL/min/{1.73_m2} >60 [facility] Hematocrit Auto (Bld) [Volum e fraction]Ordered By: Irvin Mckenna on 11-29-2024 Hematocrit (Bld) [Volume fraction] 30.7 % Low 37-47 [facility] Hemoglobin measurementOrdere d By: Irvin Mckenna on 11-29-2024 Hemoglobin (Bld) [Mass/Vol] 10.3 g/dL Low 12.0-15.0 [facility] Immature granulocytes/100 WB C Auto (Bld)Ordered By: Irvin Mckenna 11-29-2024 Immature granulocytes/100 WBC (Bld) 0.500 % 0.0-0.9 [facility] MCV (mean corpuscular volume ) determinationOrdered By: Irvin Mckenna on 11-29-2024 MCV (RBC) [Entitic vol] 114.6 fL High 81-99 [facility] Mean corpuscular hemoglobin (MCH) determinationOrdered By: beatris Mckenna on 11-29-2024 MCH (RBC) [Entitic mass] 38.4 pg High 27.0-32.0 [facility] Monocyte percentageOrdered B y: Irvin Mckenna on 11-29-2024 Monocytes/100 WBC (Bld) 8.6 % 0-10 [facility] Neutrophil percentageOrdered By: Irvin Mckenna on 11-29-2024 Neutrophils/100 WBC (Bld) 67.7 % 47-70 [facility] No Panel InformationOrdered By: Irvin Mckenna on 11-29-2024 1+ [facility] 22 U/L <32 [facility] Platelet countOrdered By: Layo Mckenna on 11-29-2024 Platelets (Bld) [#/Vol] 249 10*3/uL 150-450 [facility] Potassium measurement (mass/ volume)Ordered By: Irvin Mckenna on 11-29-2024 Potassium (Unsp spec) [Mass/Vol] 3.3 mmol/L 3.3-5.1 [facility] RBC Auto (Bld) [#/Vol]Ordere d By: Irvin Mckenna on 11-29-2024 RBC (Bld) [#/Vol] 2.68 10*6/uL Low 4.2-5.4 [facility] Serum creatinine measurement (mass/volume)Ordered By: Irvin Mckenna on 11-29-2024 Creatinine [Mass/Vol] 0.85 mg/dL 0.70-1.20 [facility] Serum globulin measurementOr dered By: Irvin Mckenna on 11-29-2024 Globulin (S) [Mass/Vol] 2.9 g/dL 2.2-4.2 [facility] Serum glucose measurement (m ass/volume)Ordered By: Irvin Mckenna on 11-29-2024 Glucose [Mass/Vol] 79 mg/dL 70-99 [facility] Serum or plasma alanine bey otransferase (ALT) measurementOrdered By: Irvin Mckenna 11-29-2024 ALT [Catalytic activity/Vol] 7 U/L <35 [facility] Serum or plasma albumin niels urement (mass/volume)Ordered By: Irvin Mckenna on 11-29-2024 Albumin [Mass/Vol] 3.7 g/dL 3.4-4.8 [facility] Serum or plasma albumin/glob ulin mass ratioOrdered By: Irvin Mckenna on 11-29-2024 Albumin/Globulin [Mass ratio] 1.3 {ratio} 0.9-2.4 [facility] Serum or plasma alkaline victor hugo sphatase measurementOrdered By: Irvin Derrickmag on 11-29-2024 ALP [Catalytic activity/Vol] 75 U/L 35-104 [facility] Serum or plasma calcium niels urement (mass/volume)Ordered By: Irvin Derrickjerilynelier on 11-29-2024 Calcium [Mass/Vol] 9.3 mg/dL 7.6-11.0 [facility] Serum or plasma urea nitroge n measurement (mass/volume)Ordered By: Irvin Derrickmag on 11-29-2024 Urea nitrogen [Mass/Vol] 9 mg/dL 4-19 [facility] Sodium levelOrdered By: Anupam hearn Derrickmag on 11-29-2024 Sodium [Moles/Vol] 137 mmol/L 133-145 [facility] TSH DL <= 0.005 mIU/L QnOrde red By: Irvin Derrickmag on 11-29-2024 TSH Qn 1.490 uIU/mL 0.300-4.20 0 [facility] Total proteinOrdered By: Luca Mckenna on 11-29-2024 Protein [Mass/Vol] 6.6 g/dL 5.9-8.4 [facility] White blood cell (WBC) count Ordered By: Layofroycandicejenni Mckenna on 11-29-2024 WBC (Bld) [#/Vol] 3.8 10*3/uL Low 4.4-11.0 [facility] Absolute lymphocyte countOrd ered By: Dago Emery on 11-24-2024 Lymphocytes Auto (Unsp spec) [#/Vol] 1.12 10*3/uL 0.83-4.51 [facility] Absolute neutrophil countOrd ered By: Dago Emery on 11-24-2024 Neutrophils (Bld) [#/Vol] 2.7 10*3/uL 2.0-7.7 [facility] Anion gap in Serum or Plasma Ordered By: Dago Emery on 11-24-2024 Anion gap [Moles/Vol] 12 mmol/L 5-15 [facility] Automated lymphocyte count a s percentage of total leukocytesOrdered By: Dago Emery on 11-24-2024 Lymphocytes/100 WBC Auto (Unsp spec) 27.0 % [facility] BUN/creatinine ratioOrdered By: Dago Emery on 11-24-2024 Urea nitrogen/Creatinine [Mass ratio] 11.3 mg/mg - [facility] Basic Metabolic Profile (BMP )on 11-24-2024 BUN/CRE 11.3 RATIO Normal - [facility] Comment on above: Performed By: #### L 500.2500, L100.0100 ####[facility] [address] [place], [address] Calcium [Mass/Vol] 9.0 mg/dL Normal 7.6-11.0 [facility] Comment on above: Performed By: #### L 500.2500, L100.0100 ####[facility] [address] [place], [address] Chloride [Moles/Vol] 100 mmol/L Normal 98-108 [facility] Comment on above: Performed By: #### L 500.2500, L100.0100 ####[facility] [address] [place], [address] CO2 [Moles/Vol] 24.0 mmol/L Normal 21.0-32.0 [facility] Comment on above: Performed By: #### L 500.2500, L100.0100 ####[facility] [address] [place], [address] Creatinine [Mass/Vol] 1.02 mg/dL Normal 0.70-1.20 [facility] Comment on above: Performed By: #### L 500.2500, L100.0100 ####[facility] [address] [place], [address] ECRCL 46.75 ml/min Low 50-250 [facility] Comment on above: Performed By: #### L 500.2500, L100.0100 ####[facility] [address] [place], [address] GAP 12 Normal 5-15 [facility] Comment on above: Performed By: #### L 500.2500, L100.0100 ####[facility] [address] [place], [address] GFR/1.73 sq M.predicted among non-blacks MDRD (S/P/Bld) [Vol rate/Area] 55 mL/min/{1.73_m2} Low >60 [facility] Comment on above: Result Comment: mL/m in/1.73m2 CKD-EPI Creatinine Equation (2020) Performed By: #### L 500.2500, L100.0100 ####[facility] [address] [place], [address] Glucose [Mass/Vol] 119 mg/dL High 70-99 [facility] Comment on above: Performed By: #### L 500.2500, L100.0100 ####[facility] [address] [place], [address] Potassium [Moles/Vol] 3.7 mmol/L Normal 3.3-5.1 [facility] Comment on above: Performed By: #### L 500.2500, L100.0100 ####[facility] [address] [place], [address] Sodium [Moles/Vol] 135 mmol/L Normal 133-145 [facility] Comment on above: Performed By: #### L 500.2500, L100.0100 ####[facility] [address] [place], [address] Urea nitrogen [Mass/Vol] 12 mg/dL Normal 4-19 [facility] Comment on above: Performed By: #### L 500.2500, L100.0100 ####[facility] [address] [place], [place], [address] Basophil percentageOrdered B y: Dago Emery on 11-24-2024 Basophils/100 WBC (Bld) 0.5 % 0-1 [facility] Blood manual differential co mment interpretation (narrative result)Ordered By: Dago Emery on 11-24-2024 Manual differential comment Jack (Bld) [Interp] SCANNED [facility] CBC W/Diff, Automatedon Anisocytosis Ql (Bld) 2+ Normal [facility] Comment on above: Performed By: #### L 500.2500, L100.0100 ####[facility] [address] [place], [place], [address] SMEAR COMMENT SCANNED Normal [facility] Comment on above: Performed By: #### L 500.2500, L100.0100 ####[facility] [address] [place], [place], [address] Carbon dioxide, total [Moles /volume] in Central venous bloodOrdered By: Dago Rupert on 11-24-2024 CO2 [Moles/Vol] 24.0 mmol/L 21.0-32.0 [facility] Chloride assayOrdered By: Jorge Emery on 11-24-2024 Chloride [Moles/Vol] 100 mmol/L 98-108 [facility] Eosinophil percentageOrdered By: Dago Emery on 11-24-2024 Eosinophils/100 WBC (Bld) 2.2 % 0-5 [facility] Erythrocyte distribution wid th ratioOrdered By: Dago Emery on 11-24-2024 Erythrocyte distribution width (RBC) [Ratio] 16.9 % High 11.6-14.6 [facility] Erythrocyte distribution wid th standard deviationOrdered By: Dago Rupert on 11-24-2024 Erythrocyte distribution width (RBC) [Ratio] 70.3 fl High 35.1-43.9 [facility] Glomerular filtration rate ( GFR) estimation/1.73 sq m using serum, plasma, or whole bOrdered By: Dago Emery on 11-24-2024 GFR/1.73 sq M.predicted among non-blacks MDRD (S/P/Bld) [Vol rate/Area] 55 mL/min/{1.73_m2} Low >60 [facility] Comment on above: mL/min/1.73m2 CKD-EP I Creatinine Equation (2020) Hematocrit Auto (Bld) [Volum e fraction]Ordered By: Dago Emery on 11-24-2024 Hematocrit (Bld) [Volume fraction] 30.7 % Low 37-47 [facility] Hemoglobin measurementOrdere d By: Dago Emery on 11-24-2024 Hemoglobin (Bld) [Mass/Vol] 10.3 g/dL Low 12.0-15.0 [facility] Immature granulocytes/100 WB C Auto (Bld)Ordered By: Dago Emery 11-24-2024 Immature granulocytes/100 WBC (Bld) 0.500 % 0.0-0.9 [facility] Comment on above: IG% - Immature Granu locytes (promyelocytes, myelocytes and metamyelocytes) > 1% indicates that a LEFT SHIFT is Present. Laboratory - Hematology and Cell countsOrdered By: Dago Emery on 11-24-2024 Anisocytosis Ql (Bld) 2+ [facility] MCV (mean corpuscular volume ) determinationOrdered By: Dago Emery 11-24-2024 MCV (RBC) [Entitic vol] 115.0 fL High 81-99 [facility] Mean corpuscular hemoglobin (MCH) determinationOrdered By: Dago Emery 11-24-2024 MCH (RBC) [Entitic mass] 38.6 pg High 27.0-32.0 [facility] Mean corpuscular hemoglobin concentration (MCHC) determinationOrdered By: Dago Emery 11-24-2024 MCHC (RBC) [Mass/Vol] 33.6 g/dL 32-36 [facility] Mean platelet volume determi nationOrdered By: Dago Emery 11-24-2024 Platelet mean volume (Bld) [Entitic vol] 10.0 fL 6.2-12.0 [facility] Monocyte percentageOrdered B y: Dago Emery on 11-24-2024 Monocytes/100 WBC (Bld) 5.3 % 0-10 [facility] Neutrophil percentageOrdered By: Dago Emery 11-24-2024 Neutrophils/100 WBC (Bld) 64.5 % 47-70 [facility] No Panel InformationOrdered By: Dago Emery on 11-24-2024 2+ [facility] Nucleated red blood cell per centageOrdered By: Dago Emery on 11-24-2024 Nucleated RBC/100 WBC (Bld) [Ratio] 0 % 0-5 [facility] Platelet countOrdered By: Jorge Emery on 11-24-2024 Platelets (Bld) [#/Vol] 239 10*3/uL 150-450 [facility] Potassium measurement (mass/ volume)Ordered By: Dago Emery on 11-24-2024 Potassium (Unsp spec) [Mass/Vol] 3.7 mmol/L 3.3-5.1 [facility] RBC Auto (Bld) [#/Vol]Ordere d By: Dago Emery on 11-24-2024 RBC (Bld) [#/Vol] 2.67 10*6/uL Low 4.2-5.4 [facility] Serum creatinine measurement (mass/volume)Ordered By: Dago Emery on 11-24-2024 Creatinine [Mass/Vol] 1.02 mg/dL 0.70-1.20 [facility] Serum glucose measurement (m ass/volume)Ordered By: Dago Emery on 11-24-2024 Glucose [Mass/Vol] 119 mg/dL High 70-99 [facility] Serum or plasma calcium niels urement (mass/volume)Ordered By: Dago Emery on 11-24-2024 Calcium [Mass/Vol] 9.0 mg/dL 7.6-11.0 [facility] Serum or plasma urea nitroge n measurement (mass/volume)Ordered By: Dago Emery on 11-24-2024 Urea nitrogen [Mass/Vol] 12 mg/dL 4-19 [facility] Sodium levelOrdered By: Dago Emery on 11-24-2024 Sodium [Moles/Vol] 135 mmol/L 133-145 [facility] White blood cell (WBC) count Ordered By: Dago Emery on 11-24-2024 WBC (Bld) [#/Vol] 4.2 10*3/uL Low 4.4-11.0 [facility] Basic Metabolic Profile (BMP )on 11-17-2024 BUN/CRE 14.3 RATIO Normal 10-20 [facility] Comment on above: Performed By: #### L 100.0100, L500.2500 ####[facility] [address] [place], [address] Calcium [Mass/Vol] 8.9 mg/dL Normal 7.6-11.0 [facility] Comment on above: Performed By: #### L 100.0100, L500.2500 ####[facility] [address] [place], [address] Chloride [Moles/Vol] 101 mmol/L Normal 98-108 [facility] Comment on above: Performed By: #### L 100.0100, L500.2500 ####[facility] [address] [place], [address] CO2 [Moles/Vol] 23.8 mmol/L Normal 21.0-32.0 [facility] Comment on above: Performed By: #### L 100.0100, L500.2500 ####[facility] [address] [place], [address] Creatinine [Mass/Vol] 1.02 mg/dL Normal 0.70-1.20 [facility] Comment on above: Performed By: #### L 100.0100, L500.2500 ####[facility] [address] [place], [address] ECRCL 47.80 ml/min Low 50-250 [facility] Comment on above: Performed By: #### L 100.0100, L500.2500 ####[facility] [address] [place], [address] GAP 11 Normal 5-15 [facility] Comment on above: Performed By: #### L 100.0100, L500.2500 ####[facility] [address] [place], [address] GFR/1.73 sq M.predicted among non-blacks MDRD (S/P/Bld) [Vol rate/Area] 55 mL/min/{1.73_m2} Low >60 [facility] Comment on above: Result Comment: mL/m in/1.73m2 CKD-EPI Creatinine Equation (2020) Performed By: #### L 100.0100, L500.2500 ####[facility] [address] [place], [address] Glucose [Mass/Vol] 82 mg/dL Normal 70-99 [facility] Comment on above: Performed By: #### L 100.0100, L500.2500 ####[facility] [address] [place], [address] Potassium [Moles/Vol] 3.8 mmol/L Normal 3.3-5.1 [facility] Comment on above: Performed By: #### L 100.0100, L500.2500 ####[facility] [address] [place], [address] Sodium [Moles/Vol] 136 mmol/L Normal 133-145 [facility] Comment on above: Performed By: #### L 100.0100, L500.2500 ####[facility] [address] [place], [address] Urea nitrogen [Mass/Vol] 15 mg/dL Normal 4-19 [facility] Comment on above: Performed By: #### L 100.0100, L500.2500 ####[facility] [address] [place], [address] CBC W/Diff, Automatedon 10-21 Anisocytosis Ql (Bld) 1+ Normal [facility] Comment on above: Performed By: #### L 100.0100, L500.2500 ####[facility] [address] [place], [address] HH, Hemoglobin AND Hematocri ton 11-15-2024 Hematocrit (Bld) [Volume fraction] 26.1 % Low [address] [place] [address] Comment on above: Performed By: #### L 100.0600 ####[facility] [address] [place], [address] Hemoglobin (Bld) [Mass/Vol] 8.8 g/dL Low 12.0-15.0 [facility] Comment on above: Performed By: #### L 100.0600 ####[facility] [address] [place], [address] COVID 19 AG RAPID (RN COLLEC T)on 11-13-2024 SARS-CoV-2 (COVID-19) RNA JANY+probe Ql (Unsp spec) Normal [facility] Comment on above: Performed By: #### M 100.505 ####[facility] [address] [place], [address] COVID-19 virus antigen assay Ordered By: Dago Emery on 11-13-2024 SARS-CoV-2 (COVID-19) Ag IA.rapid Ql (Resp) [facility] HH, Hemoglobin AND Hematocri ton 11-13-2024 Hematocrit (Bld) [Volume fraction] 25.3 % Low [address] [place] [address] Comment on above: Performed By: #### L 100.0600 ####[facility] [address] [place], [address] Hemoglobin (Bld) [Mass/Vol] 8.6 g/dL Low 12.0-15.0 [facility] Comment on above: Performed By: #### L 100.0600 ####[facility] [address] [place], [address] COVID 19 AG RAPID (RN COLLEC T)on 11-11-2024 SARS-CoV-2 (COVID-19) RNA JANY+probe Ql (Unsp spec) Normal [facility] Comment on above: Performed By: #### M 100.505 ####[facility] [address] [place], [address] COVID-19 virus antigen assay Ordered By: Dago Emery on 11-11-2024 SARS-CoV-2 (COVID-19) Ag rapid Ql (Resp) [facility] Basic Metabolic Profile (BMP )on 11-10-2024 BUN/CRE 13.9 RATIO Normal 10-20 [facility] Comment on above: Performed By: #### L 500.2500, L100.0100 ####[facility] [address] [place], [address] Calcium [Mass/Vol] 8.5 mg/dL Normal 7.6-11.0 [facility] Comment on above: Performed By: #### L 500.2500, L100.0100 ####[facility] [address] [place], [address] Chloride [Moles/Vol] 102 mmol/L Normal 98-108 [facility] Comment on above: Performed By: #### L 500.2500, L100.0100 ####[facility] [address] [place], [address] CO2 [Moles/Vol] 25.0 mmol/L Normal 21.0-32.0 [facility] Comment on above: Performed By: #### L 500.2500, L100.0100 ####[facility] [address] [place], [address] Creatinine [Mass/Vol] 0.90 mg/dL Normal 0.70-1.20 [facility] Comment on above: Performed By: #### L 500.2500, L100.0100 ####[facility] [address] [place], [address] ECRCL 54.17 ml/min Normal 50-250 [facility] Comment on above: Performed By: #### L 500.2500, L100.0100 ####[facility] [address] [place], [address] GAP 11 Normal 5-15 [facility] Comment on above: Performed By: #### L 500.2500, L100.0100 ####[facility] [address] [place], [address] GFR/1.73 sq M.predicted among non-blacks MDRD (S/P/Bld) [Vol rate/Area] 64 mL/min/{1.73_m2} Normal >60 [facility] Comment on above: Result Comment: mL/m in/1.73m2 CKD-EPI Creatinine Equation (2020) Performed By: #### L 500.2500, L100.0100 ####[facility] [address] [place], [address] Glucose [Mass/Vol] 82 mg/dL Normal 70-99 [facility] Comment on above: Performed By: #### L 500.2500, L100.0100 ####[facility] [address] [place], [address] Potassium [Moles/Vol] 3.7 mmol/L Normal 3.3-5.1 [facility] Comment on above: Performed By: #### L 500.2500, L100.0100 ####[facility] [address] [place], [address] Sodium [Moles/Vol] 138 mmol/L Normal 133-145 [facility] Comment on above: Performed By: #### L 500.2500, L100.0100 ####[facility] [address] [place], [address] Urea nitrogen [Mass/Vol] 13 mg/dL Normal 4-19 [facility] Comment on above: Performed By: #### L 500.2500, L100.0100 ####[facility] [address] [place], [address] Blood polychromasia detectio n by light microscopyOrdered By: Dago Emery on 11-10-2024 Polychromasia LM Ql (Bld) 1+ [facility] CBC W/Diff, Automatedon 10-21 POLYCHROMASIA 1+ Normal [facility] Comment on above: Performed By: #### L 500.2500, L100.0100 ####[facility] [address] [place], [address] Anisocytosis Ql (Bld) 2+ Normal [facility] Comment on above: Performed By: #### L 500.2500, L100.0100 ####[facility] [address] [place], [place], [address] PLT EST ADEQUATE Normal ADEQ [facility] Comment on above: Performed By: #### L 500.2500, L100.0100 ####[facility] [address] [place], [place], [id number] Platelet estimateOrdered By: Dago Emery on 11-10-2024 Platelets LM Ql (Bld) ADEQUATE ADEQ [facility] COVID 19 AG RAPID (DOUGLAS Devine)on 11-09-2024 SARS-CoV-2 (COVID-19) RNA JANY+probe Ql (Unsp spec) Normal [facility] Comment on above: Performed By: #### M 100.505 ####[facility] [address] [place], [place], [id number] COVID-19 virus antigen assay Ordered By: Dago Emery on 11-09-2024 SARS-CoV-2 (COVID-19) Ag IA.rapid Ql (Resp) [facility] Ankle min 3 Viewson 11-04-19 25 Ankle min 3 Views Normal [facility] Basic Metabolic Profile (BMP )on 11-03-2024 BUN/CRE 15.7 RATIO Normal 10-20 [facility] Comment on above: Performed By: #### L 500.2500, L100.0100 ####[facility] [address] [place], [address] Calcium [Mass/Vol] 8.8 mg/dL Normal 7.6-11.0 [facility] Comment on above: Performed By: #### L 500.2500, L100.0100 ####[facility] [address] [place], [address] Chloride [Moles/Vol] 101 mmol/L Normal 98-108 [facility] Comment on above: Performed By: #### L 500.2500, L100.0100 ####[facility] [facility] [address] [place], [address] CO2 [Moles/Vol] 22.1 mmol/L Normal 21.0-32.0 [facility] Comment on above: Performed By: #### L 500.2500, L100.0100 ####[facility] [address] [place], [address] Creatinine [Mass/Vol] 1.16 mg/dL Normal 0.70-1.20 [facility] Comment on above: Performed By: #### L 500.2500, L100.0100 ####[facility] [address] [place], [address] ECRCL 42.03 ml/min Low 50-250 [facility] Comment on above: Performed By: #### L 500.2500, L100.0100 ####[facility] [address] [place], [address] GAP 11 Normal 5-15 [facility] Comment on above: Performed By: #### L 500.2500, L100.0100 ####[facility] [address] [place], [address] GFR/1.73 sq M.predicted among non-blacks MDRD (S/P/Bld) [Vol rate/Area] 47 mL/min/{1.73_m2} Low >60 [facility] Comment on above: Result Comment: mL/m in/1.73m2 CKD-EPI Creatinine Equation (2020) Performed By: #### L 500.2500, L100.0100 ####[facility] [address] [place], [address] Glucose [Mass/Vol] 88 mg/dL Normal 70-99 [facility] Comment on above: Performed By: #### L 500.2500, L100.0100 ####[facility] [address] [place], [address] Potassium [Moles/Vol] 4.0 mmol/L Normal 3.3-5.1 [facility] Comment on above: Performed By: #### L 500.2500, L100.0100 ####[facility] [address] [place], [address] Sodium [Moles/Vol] 134 mmol/L Normal 133-145 [facility] Comment on above: Performed By: #### L 500.2500, L100.0100 ####[facility] [address] [place], [address] Urea nitrogen [Mass/Vol] 18 mg/dL Normal 4-19 [facility] Comment on above: Performed By: #### L 500.2500, L100.0100 ####[facility] [address] [place], [address] CBC W/Diff, Automatedon 10-20 Anisocytosis Ql (Bld) 2+ Normal [facility] Comment on above: Performed By: #### L 500.2500, L100.0100 ####[facility] [address] [place], [address] MACROCYTOSIS 2+ Normal [facility] Comment on above: Performed By: #### L 500.2500, L100.0100 ####[facility] [address] [place], [address] POLYCHROMASIA RARE Normal [facility] Comment on above: Performed By: #### L 500.2500, L100.0100 ####[facility] [address] [place], [address] RED CELL MORPH N CHROM Normal NORM C C [facility] Comment on above: Performed By: #### L 500.2500, L100.0100 ####[facility] [address] [place], [address] SMEAR COMMENT SCANNED Normal [facility] Comment on above: Performed By: #### L 500.2500, L100.0100 ####[facility] [address] [place], [address] Erythrocyte morphology asses smentOrdered By: Dago Emery on 11-03-2024 RBC morphology finding Nom (Bld) N CHROM NORMAL NORM C&C [facility] Macrocytes detectionOrdered By: Dago Emery on 11-03-2024 Macrocytes Ql (Bld) 2+ [facility] EGD Reporton 11-01-2024 EGD Report Normal [facility] Immunohistochemical Stainson 11-01-2024 Immunohistochemical Stains Normal [facility] Comment on above: Performed By: #### P IMHI ####[facility] [address] [place], [address] MR/OP.PROVATon 11-01-2024 MR/OP.PROVAT Normal [facility] MR/POSTOP.ANEon 11-01-2024 MR/POSTOP.ANE Normal [facility] MR/[id number] 11-01-2024 MR/POSTOPAN2 Normal [facility] Ankle min 3 Viewson 11-01-19 25 Ankle min 3 Views [facility] HH, Hemoglobin AND Hematocri ton 10-31-2024 Hematocrit (Bld) [Volume fraction] 24.8 % Low 37-47 [facility] Comment on above: Performed By: #### L 100.0600 ####[facility] [address] [place], [place], [phone]) Hemoglobin (Bld) [Mass/Vol] 8.4 g/dL Low 12.0-15.0 [facility] Comment on above: Performed By: #### L 100.0600 ####[facility] [address] [place], [address] Hematocrit Auto (Bld) [Volum e fraction]Ordered By: Dago Emery on 10-31-2024 Hematocrit (Bld) [Volume fraction] 24.8 % Low 37-47 [facility] Hemoglobin measurementOrdere d By: Dago Emery on 10-31-2024 Hemoglobin (Bld) [Mass/Vol] 8.4 g/dL Low 12.0-15.0 [facility] Knee 1 or 2 Viewson 11-01-19 25 Knee 1 or 2 Views Normal [facility] MR/CON.PCM.GIon 10-31-2024 MR/CON.PCM.GI Normal [facility] Stool Occult Blood iFOBon STOB Positive Normal [facility] Comment on above: Performed By: #### M 100.7900 ####[facility] [address] [place], [address] Stool gastrointestinal hemog lobin detection by immunologic methodOrdered By: Dago Emery on 10-31-2024 Lower GI hemoglobin IA Ql (Stl) Positive Abnormal [facility] HH, Hemoglobin AND Hematocri ton 10-30-2024 Hematocrit (Bld) [Volume fraction] 24.1 % Low 37-[address] [place] [address] Comment on above: Performed By: #### L 100.0600 ####[facility] [address] [place], [address]( Hemoglobin (Bld) [Mass/Vol] 7.9 g/dL Low 12.0-15.0 [facility] Comment on above: Performed By: #### L 100.0600 ####[facility] [address] [place], [address]) HH, Hemoglobin AND Hematocri ton 10-28-2024 Hematocrit (Bld) [Volume fraction] 25.0 % Low 37-47 [facility] Comment on above: Performed By: #### L 100.0600 ####[facility] [address] [place], [place], [id number] Hemoglobin (Bld) [Mass/Vol] 8.3 g/dL Low 12.0-15.0 [facility] Comment on above: Performed By: #### L 100.0600 ####[facility] [address] [place], [address] Absolute lymphocyte countOrd ered By: Dago Emery on 10-27-2024 Lymphocytes Auto (Unsp spec) [#/Vol] 1.30 10*3/uL 0.83-4.51 [facility] Absolute neutrophil countOrd ered By: Dago Emery on 10-27-2024 Neutrophils (Bld) [#/Vol] 2.7 10*3/uL 2.0-7.7 [facility] Anion gap in Serum or Plasma Ordered By: Dago Emery on 10-27-2024 Anion gap [Moles/Vol] 10 mmol/L 5-15 [facility] Automated lymphocyte count a s percentage of total leukocytesOrdered By: Dago Emery on 10-27-2024 Lymphocytes/100 WBC Auto (Unsp spec) 27.7 % 19-41 [facility] BUN/creatinine ratioOrdered By: Dago Emery on 10-27-2024 Urea nitrogen/Creatinine [Mass ratio] 24.5 mg/mg High 10-20 [facility] Basic Metabolic Profile (BMP )on 10-27-2024 BUN/CRE 24.5 RATIO High 10-20 [facility] Comment on above: Performed By: #### L 500.2500, L100.0100 ####[facility] [address], [address] Calcium [Mass/Vol] 8.8 mg/dL Normal 7.6-11.0 [facility] Comment on above: Performed By: #### L 500.2500, L100.0100 ####[facility] [address] [place], [address] Chloride [Moles/Vol] 100 mmol/L Normal 98-108 [facility] Comment on above: Performed By: #### L 500.2500, L100.0100 ####[facility] [address] [place], [address] CO2 [Moles/Vol] 22.3 mmol/L Normal 21.0-32.0 [facility] Comment on above: Performed By: #### L 500.2500, L100.0100 ####[facility] [address] [place], [address] Creatinine [Mass/Vol] 1.16 mg/dL Normal 0.70-1.20 [facility] Comment on above: Performed By: #### L 500.2500, L100.0100 ####[facility] [address] [place], [address] ECRCL 42.03 ml/min Low 50-250 [facility] Comment on above: Performed By: #### L 500.2500, L100.0100 ####[facility] [address] [place], [address] GAP 10 Normal 5-15 [facility] Comment on above: Performed By: #### L 500.2500, L100.0100 ####[facility] [address] [place], [address] GFR/1.73 sq M.predicted among non-blacks MDRD (S/P/Bld) [Vol rate/Area] 47 mL/min/{1.73_m2} Low >60 [facility] Comment on above: Result Comment: mL/m in/1.73m2 CKD-EPI Creatinine Equation (2020) Performed By: #### L 500.2500, L100.0100 ####[facility] [address] [place], [address] Glucose [Mass/Vol] 85 mg/dL Normal 70-99 [facility] Comment on above: Performed By: #### L 500.2500, L100.0100 ####[facility] [address] [place], [address] Potassium [Moles/Vol] 4.5 mmol/L Normal 3.3-5.1 [facility] Comment on above: Performed By: #### L 500.2500, L100.0100 ####[facility] [address] [place], [address] Sodium [Moles/Vol] 133 mmol/L Normal 133-145 [facility] Comment on above: Performed By: #### L 500.2500, L100.0100 ####[facility] [address] [place], [address] Urea nitrogen [Mass/Vol] 28 mg/dL High 4-19 [facility] Comment on above: Performed By: #### L 500.2500, L100.0100 ####[facility] [address] [place], [address] Basophil percentageOrdered B y: Dago Emery on 10-27-2024 Basophils/100 WBC (Bld) 0.4 % 0-1 [facility] Blood polychromasia detectio n by light microscopyOrdered By: Dago Emery on 10-27-2024 Polychromasia LM Ql (Bld) RARE [facility] CBC W/Diff, Automatedon 08-0 Anisocytosis Ql (Bld) 2+ Normal [facility] Comment on above: Performed By: #### L 500.2500, L100.0100 ####[facility] [address] [place], [address] POLYCHROMASIA RARE Normal [facility] Comment on above: Performed By: #### L 500.2500, L100.0100 ####[facility] [address] [place], [address] RED CELL MORPH NORM C+C Normal NORM C C [facility] Comment on above: Performed By: #### L 500.2500, L100.0100 ####[facility] [address] [place], [address] Carbon dioxide, total [Moles /volume] in Central venous bloodOrdered By: Dago Emery on 10-27-2024 CO2 [Moles/Vol] 22.3 mmol/L 21.0-32.0 [facility] Chloride assayOrdered By: Jorge Emery on 10-27-2024 Chloride [Moles/Vol] 100 mmol/L 98-108 [facility] Eosinophil percentageOrdered By: Dago Emery on 10-27-2024 Eosinophils/100 WBC (Bld) 3.0 % 0-5 [facility] Erythrocyte distribution wid th ratioOrdered By: Dago Emery on 10-27-2024 Erythrocyte distribution width (RBC) [Ratio] 15.9 % High 11.6-14.6 [facility] Erythrocyte distribution wid th standard deviationOrdered By: Dago Emery on 10-27-2024 Erythrocyte distribution width (RBC) [Ratio] 65.3 fl High 35.1-43.9 [facility] Erythrocyte morphology asses smentOrdered By: Dago Emery on 10-27-2024 RBC morphology finding Nom (Bld) NORM C+C NORMAL NORM C&C [facility] Glomerular filtration rate ( GFR) estimation/1.73 sq m using serum, plasma, or whole bOrdered By: Dago Emery on 10-27-2024 GFR/1.73 sq M.predicted among non-blacks MDRD (S/P/Bld) [Vol rate/Area] 47 mL/min/{1.73_m2} Low >60 [facility] Comment on above: mL/min/1.73m2 CKD-EP I Creatinine Equation (2020) Immature granulocytes/100 WB C Auto (Bld)Ordered By: Dago Emery on 10-27-2024 Immature granulocytes/100 WBC (Bld) 1.500 % High 0.0-0.9 [facility] Comment on above: IG% - Immature Granu locytes (promyelocytes, myelocytes and metamyelocytes) > 1% indicates that a LEFT SHIFT is Present. Laboratory - Hematology and Cell countsOrdered By: Dago Emery on 10-27-2024 Anisocytosis Ql (Bld) 2+ [facility] MCV (mean corpuscular volume ) determinationOrdered By: Dago Emery on 10-27-2024 MCV (RBC) [Entitic vol] 113.4 fL High 81-99 [facility] Mean corpuscular hemoglobin (MCH) determinationOrdered By: Dago Emery 10-27-2024 MCH (RBC) [Entitic mass] 37.0 pg High 27.0-32.0 [facility] Mean corpuscular hemoglobin concentration (MCHC) determinationOrdered By: Dago Emery 10-27-2024 MCHC (RBC) [Mass/Vol] 32.7 g/dL 32-36 [facility] Mean platelet volume determi nationOrdered By: Dago Emery on 10-27-2024 Platelet mean volume (Bld) [Entitic vol] 9.9 fL 6.2-12.0 [facility] Monocyte percentageOrdered B y: Dago Emery on 10-27-2024 Monocytes/100 WBC (Bld) 10.6 % High 0-10 [facility] Neutrophil percentageOrdered By: Dago Emery 10-27-2024 Neutrophils/100 WBC (Bld) 56.8 % 47-70 [facility] Nucleated red blood cell per centageOrdered By: Dago Emery 10-27-2024 Nucleated RBC/100 WBC (Bld) [Ratio] 0 % 0-5 [facility] Platelet countOrdered By: Jorge Emery on 10-27-2024 Platelets (Bld) [#/Vol] 230 10*3/uL 150-450 [facility] Potassium measurement (mass/ volume)Ordered By: Dago Emery on 10-27-2024 Potassium (Unsp spec) [Mass/Vol] 4.5 mmol/L 3.3-5.1 [facility] RBC Auto (Bld) [#/Vol]Ordere d By: Dago Emery on 10-27-2024 RBC (Bld) [#/Vol] 2.16 10*6/uL Low 4.2-5.4 [facility] Serum creatinine measurement (mass/volume)Ordered By: Dago Emery on 10-27-2024 Creatinine [Mass/Vol] 1.16 mg/dL 0.70-1.20 [facility] Serum glucose measurement (m ass/volume)Ordered By: Dago Emery on 10-27-2024 Glucose [Mass/Vol] 85 mg/dL 70-99 [facility] Serum or plasma calcium niels urement (mass/volume)Ordered By: Dago Emery on 10-27-2024 Calcium [Mass/Vol] 8.8 mg/dL 7.6-11.0 [facility] Serum or plasma urea nitroge n measurement (mass/volume)Ordered By: Dago Emery on 10-27-2024 Urea nitrogen [Mass/Vol] 28 mg/dL High 4-19 [facility] Sodium levelOrdered By: Dago Emery on 10-27-2024 Sodium [Moles/Vol] 133 mmol/L 133-145 [facility] White blood cell (WBC) count Ordered By: Dago Emery on 10-27-2024 WBC (Bld) [#/Vol] 4.7 10*3/uL 4.4-11.0 [facility] Basic Metabolic Profile (BMP )on 10-22-2024 BUN/CRE 26.3 RATIO High 10-20 [facility] Comment on above: Performed By: #### L 500.2500, L100.0100 ####[facility] [address] [place], [address] Calcium [Mass/Vol] 8.9 mg/dL Normal 7.6-11.0 [facility] Comment on above: Performed By: #### L 500.2500, L100.0100 ####[facility] [address] [place], [address] Chloride [Moles/Vol] 103 mmol/L Normal 98-108 [facility] Comment on above: Performed By: #### L 500.2500, L100.0100 ####[facility] [address] [place], [address] CO2 [Moles/Vol] 22.0 mmol/L Normal 21.0-32.0 [facility] Comment on above: Performed By: #### L 500.2500, L100.0100 ####[facility] [address] [place], [address] Creatinine [Mass/Vol] 0.84 mg/dL Normal 0.70-1.20 [facility] Comment on above: Performed By: #### L 500.2500, L100.0100 ####[facility] [address] [place], [address] ECRCL 57.97 ml/min Normal 50-250 [facility] Comment on above: Performed By: #### L 500.2500, L100.0100 ####[facility] [address] [place], [address] GAP 10 Normal 5-15 [facility] Comment on above: Performed By: #### L 500.2500, L100.0100 ####[facility] [address] [place], [address] GFR/1.73 sq M.predicted among non-blacks MDRD (S/P/Bld) [Vol rate/Area] 70 mL/min/{1.73_m2} Normal >60 [facility] Comment on above: Result Comment: mL/m in/1.73m2 CKD-EPI Creatinine Equation (2020) Performed By: #### L 500.2500, L100.0100 ####[facility] [address] [place], [address] Glucose [Mass/Vol] 94 mg/dL Normal 70-99 [facility] Comment on above: Performed By: #### L 500.2500, L100.0100 ####[facility] [address] [place], [address] Potassium [Moles/Vol] 4.0 mmol/L Normal 3.3-5.1 [facility] Comment on above: Performed By: #### L 500.2500, L100.0100 ####[facility] [address] [place], [address] Sodium [Moles/Vol] 135 mmol/L Normal 133-145 [facility] Comment on above: Performed By: #### L 500.2500, L100.0100 ####[facility] [address] [place], [address] Urea nitrogen [Mass/Vol] 22 mg/dL High 4-19 [facility] Comment on above: Performed By: #### L 500.2500, L100.0100 ####[facility] [address] [place], [address] CBC W/Diff, Automatedon 08-0 3-2025 Absolute Lymph 1.22 X10 3/uL Normal 0.83-4.51 [facility] Comment on above: Performed By: #### L 500.2500, L100.0100 ####[facility] [address] [place], [address] Absolute Neut 3.2 X10 3/uL Normal 2.0-7.7 [facility] Comment on above: Performed By: #### L 500.2500, L100.0100 ####[facility] [address] [place], [address] Basophils/100 WBC (Bld) 0.6 % Normal 0-1 [facility] Comment on above: Performed By: #### L 500.2500, L100.0100 ####[facility] [address] [place], [address] Eosinophils/100 WBC (Bld) 1.6 % Normal 0-5 [facility] Comment on above: Performed By: #### L 500.2500, L100.0100 ####[facility] [address] [place], [address] Erythrocyte distribution width (RBC) [Ratio] 15.7 % High 11.6-14.6 [facility] Comment on above: Performed By: #### L 500.2500, L100.0100 ####[facility] [address] [place], [address] Hematocrit (Bld) [Volume fraction] 26.6 % Low 37-47 [facility] Comment on above: Performed By: #### L 500.2500, L100.0100 ####[facility] [address] [place], [address] Hemoglobin (Bld) [Mass/Vol] 8.8 g/dL Low 12.0-15.0 [facility] Comment on above: Performed By: #### L 500.2500, L100.0100 ####[facility] [address] [place], [address] IG% 0.600 Normal 0.0-0.9 [facility] Comment on above: Result Comment: IG% - Immature Granulocytes (promyelocytes, myelocytes andmetamyelocytes) > 1% indicates that a LEFT SHIFT is Present. Performed By: #### L 500.2500, L100.0100 ####[facility] [address] [place], [address] Lymphocytes/100 WBC (Bld) 24.1 % Normal 19-41 [facility] Comment on above: Performed By: #### L 500.2500, L100.0100 ####[facility] [address] [place], [address] MCH (RBC) [Entitic mass] 37.0 pg High 27.0-32.0 [facility] Comment on above: Performed By: #### L 500.2500, L100.0100 ####[facility] [address] [place], [address] MCHC (RBC) [Mass/Vol] 33.1 g/dL Normal 32-36 [facility] Comment on above: Performed By: #### L 500.2500, L100.0100 ####[facility] [address] [place], [address] MCV (RBC) [Entitic vol] 111.8 fL High 81-99 [facility] Comment on above: Performed By: #### L 500.2500, L100.0100 ####[facility] [address] [place], [address] Monocytes/100 WBC (Bld) 10.1 % High 0-10 [facility] Comment on above: Performed By: #### L 500.2500, L100.0100 ####[facility] [address] [place], [address] Neutrophils/100 WBC (Bld) 63.0 % Normal 47-70 [facility] Comment on above: Performed By: #### L 500.2500, L100.0100 ####[facility] [address] [place], [address] Nucleated RBC (Bld) [#/Vol] 0 10*3/uL Normal 0-5 [facility] Comment on above: Performed By: #### L 500.2500, L100.0100 ####[facility] [address] [place], [address] Platelet mean volume (Bld) [Entitic vol] 10.4 fL Normal 6.2-12.0 [facility] Comment on above: Performed By: #### L 500.2500, L100.0100 ####[facility] [address] [place], [address] Platelets (Bld) [#/Vol] 248 10*3/uL Normal 150-450 [facility] Comment on above: Performed By: #### L 500.2500, L100.0100 ####[facility] [address] [place], [address] RBC (Bld) [#/Vol] 2.38 10*6/uL Low 4.2-5.4 [facility] Comment on above: Performed By: #### L 500.2500, L100.0100 ####[facility] [address] [place], [address] RDW SD 64.2 fl High 35.1-43.9 [facility] Comment on above: Performed By: #### L 500.2500, L100.0100 ####[facility] [address] [place], [address] WBC (Bld) [#/Vol] 5.1 10*3/uL Normal 4.4-11.0 [facility] Comment on above: Performed By: #### L 500.2500, L100.0100 ####[facility] [address] [place], [address] Absolute lymphocyte countOrd ered By: Nela Wallace on 10-21-2024 Lymphocytes Auto (Unsp spec) [#/Vol] 1.47 10*3/uL 0.83-4.51 [facility] Absolute neutrophil countOrd ered By: Nela Wallace on 10-21-2024 Neutrophils (Bld) [#/Vol] 3.0 10*3/uL 2.0-7.7 [facility] Anion gap in Serum or Plasma Ordered By: Nela Wallace on 10-21-2024 Anion gap [Moles/Vol] 10 mmol/L 5-15 [facility] Automated lymphocyte count a s percentage of total leukocytesOrdered By: Nela Wallace on 10-21-2024 Lymphocytes/100 WBC Auto (Unsp spec) 27.2 % -41 [facility] BUN/creatinine ratioOrdered By: Nela Wallace on 10-21-2024 Urea nitrogen/Creatinine [Mass ratio] 23.7 mg/mg High 10- [facility] Basic Metabolic Profile (BMP )on 10-21-2024 BUN/CRE 23.7 RATIO High 10- [facility] Comment on above: Performed By: #### L 500.2500 ####[facility] [address] [place], [address] Calcium [Mass/Vol] 8.5 mg/dL Normal 7.6-11.0 [facility] Comment on above: Performed By: #### L 500.2500 ####[facility] [address] [place], [address] Chloride [Moles/Vol] 103 mmol/L Normal 98-108 [facility] Comment on above: Performed By: #### L 500.2500 ####[facility] [address] [place], [address] CO2 [Moles/Vol] 21.9 mmol/L Normal 21.0-32.0 [facility] Comment on above: Performed By: #### L 500.2500 ####[facility] [address] [place], [address] Creatinine [Mass/Vol] 1.04 mg/dL Normal 0.70-1.20 [facility] Comment on above: Performed By: #### L 500.2500 ####[facility] [address] [place], [address] ECRCL 45.68 ml/min Low 50-250 [facility] Comment on above: Performed By: #### L 500.2500 ####[facility] [address] [place], [address] GAP 10 Normal 5-15 [facility] Comment on above: Performed By: #### L 500.2500 ####[facility] [address] [place], [address] GFR/1.73 sq M.predicted among non-blacks MDRD (S/P/Bld) [Vol rate/Area] 54 mL/min/{1.73_m2} Low >60 [facility] Comment on above: Result Comment: mL/m in/1.73m2 CKD-EPI Creatinine Equation (2020) Performed By: #### L 500.2500 ####[facility] [address] [place], [address] Glucose [Mass/Vol] 86 mg/dL Normal 70-99 [facility] Comment on above: Performed By: #### L 500.2500 ####[facility] [address] [place], [address] Potassium [Moles/Vol] 3.8 mmol/L Normal 3.3-5.1 [facility] Comment on above: Performed By: #### L 500.2500 ####[facility] [address] [place], [address] Sodium [Moles/Vol] 135 mmol/L Normal 133-145 [facility] Comment on above: Performed By: #### L 500.2500 ####[facility] [address] [place], [address] Urea nitrogen [Mass/Vol] 25 mg/dL High 4-19 [facility] Comment on above: Performed By: #### L 500.2500 ####[facility] [address] [place], [address] Basophil percentageOrdered B y: Nela Wallace on 10-21-2024 Basophils/100 WBC (Bld) 0.4 % 0-1 [facility] CBC W/Diff, Automatedon 08-0 Absolute Lymph 1.47 X10 3/uL Normal 0.83-4.51 [facility] Comment on above: Performed By: #### L 100.0100 ####[facility] [address] [place], [address] Absolute Neut 3.0 X10 3/uL Normal 2.0-7.7 [facility] Comment on above: Performed By: #### L 100.0100 ####[facility] [address] [place], [address] Basophils/100 WBC (Bld) 0.4 % Normal 0-1 [facility] Comment on above: Performed By: #### L 100.0100 ####[facility] [address] [place], [address] Eosinophils/100 WBC (Bld) 1.9 % Normal 0-5 [facility] Comment on above: Performed By: #### L 100.0100 ####[facility] [address] [place], [address] Erythrocyte distribution width (RBC) [Ratio] 15.8 % High 11.6-14.6 [facility] Comment on above: Performed By: #### L 100.0100 ####[facility] [address] [place], [address] Hematocrit (Bld) [Volume fraction] 25.5 % Low 37-47 [facility] Comment on above: Performed By: #### L 100.0100 ####[facility] [address] [place], [address] Hemoglobin (Bld) [Mass/Vol] 8.7 g/dL Low 12.0-15.0 [facility] Comment on above: Performed By: #### L 100.0100 ####[facility] [address] [place], [address] IG% 0.600 Normal 0.0-0.9 [facility] Comment on above: Result Comment: IG% - Immature Granulocytes (promyelocytes, myelocytes andmetamyelocytes) > 1% indicates that a LEFT SHIFT is Present. Performed By: #### L 100.0100 ####[facility] [address] [place], [address] Lymphocytes/100 WBC (Bld) 27.2 % Normal 19-41 [facility] Comment on above: Performed By: #### L 100.0100 ####[facility] [address] [place], [address] MCH (RBC) [Entitic mass] 37.8 pg High 27.0-32.0 [facility] Comment on above: Performed By: #### L 100.0100 ####[facility] [address] [place], [address] MCHC (RBC) [Mass/Vol] 34.1 g/dL Normal 32-36 [facility] Comment on above: Performed By: #### L 100.0100 ####[facility] [address] [place], [address] MCV (RBC) [Entitic vol] 110.9 fL High 81-99 [facility] Comment on above: Performed By: #### L 100.0100 ####[facility] [address] [place], [address] Monocytes/100 WBC (Bld) 15.2 % High 0-10 [facility] Comment on above: Performed By: #### L 100.0100 ####[facility] [address] [place], [address] Neutrophils/100 WBC (Bld) 54.7 % Normal 47-70 [facility] Comment on above: Performed By: #### L 100.0100 ####[facility] [address] [place], [address] Nucleated RBC (Bld) [#/Vol] 0 10*3/uL Normal 0-5 [facility] Comment on above: Performed By: #### L 100.0100 ####[facility] [address] [place], [address] Platelet mean volume (Bld) [Entitic vol] 10.8 fL Normal 6.2-12.0 [facility] Comment on above: Performed By: #### L 100.0100 ####[facility] [address] [place], [address] Platelets (Bld) [#/Vol] 224 10*3/uL Normal 150-450 [facility] Comment on above: Performed By: #### L 100.0100 ####[facility] [address] [place], [address] RBC (Bld) [#/Vol] 2.30 10*6/uL Low 4.2-5.4 [facility] Comment on above: Performed By: #### L 100.0100 ####[facility] [address] [place], [address] RDW SD 64.2 fl High 35.1-43.9 [facility] Comment on above: Performed By: #### L 100.0100 ####[facility] [address] [place], [address] WBC (Bld) [#/Vol] 5.4 10*3/uL Normal 4.4-11.0 [facility] Comment on above: Performed By: #### L 100.0100 ####[facility] [address] [place], [address] Carbon dioxide, total [Moles /volume] in Central venous bloodOrdered By: Nela Wallace on 10-21-2024 CO2 [Moles/Vol] 21.9 mmol/L 21.0-32.0 [facility] Chloride assayOrdered By: Bharathi Wallace on 10-21-2024 Chloride [Moles/Vol] 103 mmol/L 98-108 [facility] Eosinophil percentageOrdered By: Nela Wallace on 10-21-2024 Eosinophils/100 WBC (Bld) 1.9 % 0-5 [facility] Erythrocyte distribution wid th ratioOrdered By: Nela Wallace on 10-21-2024 Erythrocyte distribution width (RBC) [Ratio] 15.8 % High 11.6-14.6 [facility] Erythrocyte distribution wid th standard deviationOrdered By: Nela Wallace on 10-21-2024 Erythrocyte distribution width (RBC) [Ratio] 64.2 fl High 35.1-43.9 [facility] Glomerular filtration rate ( GFR) estimation/1.73 sq m using serum, plasma, or whole bOrdered By: Nela Wallace on 10-21-2024 GFR/1.73 sq M.predicted among non-blacks MDRD (S/P/Bld) [Vol rate/Area] 54 mL/min/{1.73_m2} Low >60 [facility] Comment on above: mL/min/1.73m2 CKD-EP I Creatinine Equation (2020) Hematocrit Auto (Bld) [Volum e fraction]Ordered By: Nela Wallace on 10-21-2024 Hematocrit (Bld) [Volume fraction] 25.5 % Low 37-47 [facility] Hemoglobin measurementOrdere d By: Nela Wallace on 10-21-2024 Hemoglobin (Bld) [Mass/Vol] 8.7 g/dL Low 12.0-15.0 [facility] Immature granulocytes/100 WB C Auto (Bld)Ordered By: Nela Wallace on 10-21-2024 Immature granulocytes/100 WBC (Bld) 0.600 % 0.0-0.9 [facility] Comment on above: IG% - Immature Granu locytes (promyelocytes, myelocytes and metamyelocytes) > 1% indicates that a LEFT SHIFT is Present. MCV (mean corpuscular volume ) determinationOrdered By: Nela Wallace on 10-21-2024 MCV (RBC) [Entitic vol] 110.9 fL High 81-99 [facility] Mean corpuscular hemoglobin (MCH) determinationOrdered By: Nela Wallace on 10-21-2024 MCH (RBC) [Entitic mass] 37.8 pg High 27.0-32.0 [facility] Mean corpuscular hemoglobin concentration (MCHC) determinationOrdered By: Nela Wallace on 10-21-2024 MCHC (RBC) [Mass/Vol] 34.1 g/dL 32-36 [facility] Mean platelet volume determi nationOrdered By: Nela Wallace on 10-21-2024 Platelet mean volume (Bld) [Entitic vol] 10.8 fL 6.2-12.0 [facility] Monocyte percentageOrdered B y: Nela Wallace on 10-21-2024 Monocytes/100 WBC (Bld) 15.2 % High 0-10 [facility] Neutrophil percentageOrdered By: Nela Wallace on 10-21-2024 Neutrophils/100 WBC (Bld) 54.7 % 47-70 [facility] Nucleated red blood cell per centageOrdered By: Nela Wallace on 10-21-2024 Nucleated RBC/100 WBC (Bld) [Ratio] 0 % 0-5 [facility] Platelet countOrdered By: Bharathi Wallace on 10-21-2024 Platelets (Bld) [#/Vol] 224 10*3/uL 150-450 [facility] Potassium measurement (mass/ volume)Ordered By: Nela Wallace on 10-21-2024 Potassium (Unsp spec) [Mass/Vol] 3.8 mmol/L 3.3-5.1 [facility] RBC Auto (Bld) [#/Vol]Ordere d By: Nela Wallace on 10-21-2024 RBC (Bld) [#/Vol] 2.30 10*6/uL Low 4.2-5.4 [facility] Serum creatinine measurement (mass/volume)Ordered By: Nela Wallace on 10-21-2024 Creatinine [Mass/Vol] 1.04 mg/dL 0.70-1.20 [facility] Serum glucose measurement (m ass/volume)Ordered By: Nela Wallace on 10-21-2024 Glucose [Mass/Vol] 86 mg/dL 70-99 [facility] Serum or plasma calcium niels urement (mass/volume)Ordered By: Nela Wallace on 10-21-2024 Calcium [Mass/Vol] 8.5 mg/dL 7.6-11.0 [facility] Serum or plasma urea nitroge n measurement (mass/volume)Ordered By: Nela Wallace on 10-21-2024 Urea nitrogen [Mass/Vol] 25 mg/dL High 4-19 [facility] Sodium levelOrdered By: Tracie Wallace on 10-21-2024 Sodium [Moles/Vol] 135 mmol/L 133-145 [facility] White blood cell (WBC) count Ordered By: Nela Wallace on 10-21-2024 WBC (Bld) [#/Vol] 5.4 10*3/uL 4.4-11.0 [facility] Basic Metabolic Profile (BMP )on 10-20-2024 BUN/CRE 17.8 RATIO Normal 10-20 [facility] Comment on above: Performed By: #### L 500.2500 ####[facility] [address] [place], [address] Calcium [Mass/Vol] 8.3 mg/dL Normal 7.6-11.0 [facility] Comment on above: Performed By: #### L 500.2500 ####[facility] [address] [place], [address] Chloride [Moles/Vol] 105 mmol/L Normal 98-108 [facility] Comment on above: Performed By: #### L 500.2500 ####[facility] [address] [place], [address] CO2 [Moles/Vol] 21.4 mmol/L Normal 21.0-32.0 [facility] Comment on above: Performed By: #### L 500.2500 ####[facility] [address] [place], [address] Creatinine [Mass/Vol] 0.86 mg/dL Normal 0.70-1.20 [facility] Comment on above: Performed By: #### L 500.2500 ####[facility] [address] [place], [address] ECRCL 55.24 ml/min Normal 50-250 [facility] Comment on above: Performed By: #### L 500.2500 ####[facility] [address] [place], [address] GAP 10 Normal 5-15 [facility] Comment on above: Performed By: #### L 500.2500 ####[facility] [address] [place], [address] GFR/1.73 sq M.predicted among non-blacks MDRD (S/P/Bld) [Vol rate/Area] 68 mL/min/{1.73_m2} Normal >60 [facility] Comment on above: Result Comment: mL/m in/1.73m2 CKD-EPI Creatinine Equation (2020) Performed By: #### L 500.2500 ####[facility] [address] [place], [address] Glucose [Mass/Vol] 82 mg/dL Normal 70-99 [facility] Comment on above: Performed By: #### L 500.2500 ####[facility] [address] [place], [address] Potassium [Moles/Vol] 3.8 mmol/L Normal 3.3-5.1 [facility] Comment on above: Performed By: #### L 500.2500 ####[facility] [address] [place], [address] Sodium [Moles/Vol] 136 mmol/L Normal 133-145 [facility] Comment on above: Performed By: #### L 500.2500 ####[facility] [address] [place], [address] Urea nitrogen [Mass/Vol] 15 mg/dL Normal 4-19 [facility] Comment on above: Performed By: #### L 500.2500 ####[facility] [address] [place], [address] CBC-Complete Blood Cnt No Di ffon 10-20-2024 Erythrocyte distribution width (RBC) [Ratio] 15.5 % High 11.6-14.6 [facility] Comment on above: Performed By: #### L 100.0500 ####[facility] [address] [place], [address] Hematocrit (Bld) [Volume fraction] 27.0 % Low 37-47 [facility] Comment on above: Performed By: #### L 100.0500 ####[facility] [address] [place], [address] Hemoglobin (Bld) [Mass/Vol] 9.1 g/dL Low 12.0-15.0 [facility] Comment on above: Performed By: #### L 100.0500 ####[facility] [address] [place], [address] MCH (RBC) [Entitic mass] 37.6 pg High 27.0-32.0 [facility] Comment on above: Performed By: #### L 100.0500 ####[facility] [address] [place], [address] MCHC (RBC) [Mass/Vol] 33.7 g/dL Normal 32-36 [facility] Comment on above: Performed By: #### L 100.0500 ####[facility] [address] [place], [address] MCV (RBC) [Entitic vol] 111.6 fL High 81-99 [facility] Comment on above: Performed By: #### L 100.0500 ####[facility] [address] [place], [address] Platelet mean volume (Bld) [Entitic vol] 10.8 fL Normal 6.2-12.0 [facility] Comment on above: Performed By: #### L 100.0500 ####[facility] [address] [place], [address] Platelets (Bld) [#/Vol] 210 10*3/uL Normal 150-450 [facility] Comment on above: Performed By: #### L 100.0500 ####[facility] [address] [place], [address] RBC (Bld) [#/Vol] 2.42 10*6/uL Low 4.2-5.4 [facility] Comment on above: Performed By: #### L 100.0500 ####[facility] [address] [place], [address] RDW SD 64.2 fl High 35.1-43.9 [facility] Comment on above: Performed By: #### L 100.0500 ####[facility] [address] [place], [address] WBC (Bld) [#/Vol] 7.0 10*3/uL Normal 4.4-11.0 [facility] Comment on above: Performed By: #### L 100.0500 ####[facility] [address] [place], [address] Basic Metabolic Profile (BMP )on 10-19-2024 BUN/CRE 16.2 RATIO Normal 10-20 [facility] Comment on above: Performed By: #### L 500.2500, L100.0100 ####[facility] [address] [place], [address] Calcium [Mass/Vol] 8.9 mg/dL Normal 7.6-11.0 [facility] Comment on above: Performed By: #### L 500.2500, L100.0100 ####[facility] [address] [place], [address] Chloride [Moles/Vol] 98 mmol/L Normal 98-108 [facility] Comment on above: Performed By: #### L 500.2500, L100.0100 ####[facility] [address] [place], [address] CO2 [Moles/Vol] 21.9 mmol/L Normal 21.0-32.0 [facility] Comment on above: Performed By: #### L 500.2500, L100.0100 ####[facility] [address] [place], [address] Creatinine [Mass/Vol] 1.02 mg/dL Normal 0.70-1.20 [facility] Comment on above: Performed By: #### L 500.2500, L100.0100 ####[facility] [address] [place], [address] ECRCL 46.57 ml/min Low 50-250 [facility] Comment on above: Performed By: #### L 500.2500, L100.0100 ####[facility] [address] [place], [address] GAP 11 Normal 5-15 [facility] Comment on above: Performed By: #### L 500.2500, L100.0100 ####[facility] [address] [place], [address] GFR/1.73 sq M.predicted among non-blacks MDRD (S/P/Bld) [Vol rate/Area] 55 mL/min/{1.73_m2} Low >60 [facility] Comment on above: Result Comment: mL/m in/1.73m2 CKD-EPI Creatinine Equation (2020) Performed By: #### L 500.2500, L100.0100 ####[facility] [address] [place], [address] Glucose [Mass/Vol] 94 mg/dL Normal 70-99 [facility] Comment on above: Performed By: #### L 500.2500, L100.0100 ####[facility] [address] [place], [address] Potassium [Moles/Vol] 4.1 mmol/L Normal 3.3-5.1 [facility] Comment on above: Performed By: #### L 500.2500, L100.0100 ####[facility] [address] [place], [address] Sodium [Moles/Vol] 131 mmol/L Low 133-145 [facility] Comment on above: Performed By: #### L 500.2500, L100.0100 ####[facility] [address] [place], [address] Urea nitrogen [Mass/Vol] 17 mg/dL Normal 4-19 [facility] Comment on above: Performed By: #### L 500.2500, L100.0100 ####[facility] [address] [place], [address] Bedside Glucoseon 10-19-2024 FINGERSTICK GLU 120 mg/dL High 74-106 [facility] Comment on above: Result Comment: TRACEY SALDAÑA OF PATIENT CARE PER NURSING PROTOCOL Performed By: #### L 501.080 ####[facility] [address] [place], [address] CBC W/Diff, Automatedon 07- Absolute Lymph 1.13 X10 3/uL Normal 0.83-4.51 [facility] Comment on above: Performed By: #### L 100.0100 ####[facility] [address] [place], [address] Absolute Neut 5.2 X10 3/uL Normal 2.0-7.7 [facility] Comment on above: Performed By: #### L 100.0100 ####[facility] [address] [place], [address] Basophils/100 WBC (Bld) 0.3 % Normal 0-1 [facility] Comment on above: Performed By: #### L 100.0100 ####[facility] [address] [place], [address] Eosinophils/100 WBC (Bld) 0.9 % Normal 0-5 [facility] Comment on above: Performed By: #### L 100.0100 ####[facility] [address] [place], [address] Erythrocyte distribution width (RBC) [Ratio] 15.5 % High 11.6-14.6 [facility] Comment on above: Performed By: #### L 100.0100 ####[facility] [address] [place], [address] Hematocrit (Bld) [Volume fraction] 27.6 % Low 37-47 [facility] Comment on above: Performed By: #### L 100.0100 ####[facility] [address] [place], [address] Hemoglobin (Bld) [Mass/Vol] 9.4 g/dL Low 12.0-15.0 [facility] Comment on above: Performed By: #### L 100.0100 ####[facility] [address] [place], [address] IG% 0.600 Normal 0.0-0.9 [facility] Comment on above: Result Comment: IG% - Immature Granulocytes (promyelocytes, myelocytes andmetamyelocytes) > 1% indicates that a LEFT SHIFT is Present. Performed By: #### L 100.0100 ####[facility] [address] [place], [address] Lymphocytes/100 WBC (Bld) 14.4 % Low 19-41 [facility] Comment on above: Performed By: #### L 100.0100 ####[facility] [address] [place], [address] MCH (RBC) [Entitic mass] 37.8 pg High 27.0-32.0 [facility] Comment on above: Performed By: #### L 100.0100 ####[facility] [address] [place], [address] MCHC (RBC) [Mass/Vol] 34.1 g/dL Normal 32-36 [facility] Comment on above: Performed By: #### L 100.0100 ####[facility] [address] [place], [address] MCV (RBC) [Entitic vol] 110.8 fL High 81-99 [facility] Comment on above: Performed By: #### L 100.0100 ####[facility] [address] [place], [address] Monocytes/100 WBC (Bld) 17.1 % High 0-10 [facility] Comment on above: Performed By: #### L 100.0100 ####[facility] [address] [place], [address] Neutrophils/100 WBC (Bld) 66.7 % Normal 47-70 [facility] [facility] Comment on above: Performed By: #### L 100.0100 ####[facility] [address] [place], [address] Nucleated RBC (Bld) [#/Vol] 0 10*3/uL Normal 0-5 [facility] Comment on above: Performed By: #### L 100.0100 ####[facility] [address] [place], [address] Platelet mean volume (Bld) [Entitic vol] 11.0 fL Normal 6.2-12.0 [facility] Comment on above: Performed By: #### L 100.0100 ####[facility] [address] [place], [address] Platelets (Bld) [#/Vol] 181 10*3/uL Normal 150-450 [facility] Comment on above: Performed By: #### L 100.0100 ####[facility] [address] [place], [address] RBC (Bld) [#/Vol] 2.49 10*6/uL Low 4.2-5.4 [facility] Comment on above: Performed By: #### L 100.0100 ####[facility] [address] [place], [address] RDW SD 62.7 fl High 35.1-43.9 [facility] Comment on above: Performed By: #### L 100.0100 ####[facility] [address] [place], [address] WBC (Bld) [#/Vol] 7.8 10*3/uL Normal 4.4-11.0 [facility] Comment on above: Performed By: #### L 100.0100 ####[facility] [address] [place], [address] Absolute Neut Normal 2.0-7.7 [facility] Comment on above: Result Comment: Canc elled via OM: Duplicate Order Performed By: #### L 500.2500, L100.0100 ####[facility] [address] [place], [address] HCT Normal 37-47 [facility] Comment on above: Result Comment: Canc elled via OM: Duplicate Order Performed By: #### L 500.2500, L100.0100 ####[facility] [address] [place], [address] HGB Normal 12.0-15.0 [facility] Comment on above: Result Comment: Canc elled via OM: Duplicate Order Performed By: #### L 500.2500, L100.0100 ####[facility] [address] [place], [address] MCH Normal 27.0-32.0 [facility] Comment on above: Result Comment: Canc elled via OM: Duplicate Order Performed By: #### L 500.2500, L100.0100 ####[facility] [address] [place], [address] MCHC Normal 32-36 [facility] Comment on above: Result Comment: Canc elled via OM: Duplicate Order Performed By: #### L 500.2500, L100.0100 ####[facility] [address] [place], [address] MCV Normal 81-99 [facility] Comment on above: Result Comment: Canc elled via OM: Duplicate Order Performed By: #### L 500.2500, L100.0100 ####[facility] [address] [place], [address] NEUT% Normal 47-70 [facility] Comment on above: Result Comment: Canc elled via OM: Duplicate Order Performed By: #### L 500.2500, L100.0100 ####[facility] [address] [place], [address] PLT Normal 150-450 [facility] Comment on above: Result Comment: Canc elled via OM: Duplicate Order Performed By: #### L 500.2500, L100.0100 ####[facility] [address] [place], [address] RBC Normal 4.2-5.4 [facility] Comment on above: Result Comment: Canc elled via OM: Duplicate Order Performed By: #### L 500.2500, L100.0100 ####[facility] [address] [place], [address] RDW CV Normal 11.6-14.6 [facility] Comment on above: Result Comment: Canc elled via OM: Duplicate Order Performed By: #### L 500.2500, L100.0100 ####[facility] [address] [place], [address] RDW SD Normal 35.1-43.9 [facility] Comment on above: Result Comment: Canc elled via OM: Duplicate Order Performed By: #### L 500.2500, L100.0100 ####[facility] [address] [place], [address] WBC Normal 4.4-11.0 [facility] Comment on above: Result Comment: Canerasto elled via OM: Duplicate Order Performed By: #### L 500.2500, L100.0100 ####[facility] [address] [place], [address] [facility] deOrdered By: Geo Rodriguez on 10-19-2024 Glucose [Mass/Vol] 120 mg/dL High 74-106 [facility] Comment on above: MANAGEMENT OF PATIEN T CARE PER NURSING PROTOCOL Basic Metabolic Profile (BMP )on 10-18-2024 BUN/CRE 18.0 RATIO Normal 10-20 [facility] Comment on above: Performed By: #### L 500.2500, L100.0100 ####[facility] [address] [place], [address] Calcium [Mass/Vol] 8.5 mg/dL Normal 7.6-11.0 [facility] Comment on above: Performed By: #### L 500.2500, L100.0100 ####[facility] [address] [place], [address] Chloride [Moles/Vol] 99 mmol/L Normal 98-108 [facility] Comment on above: Performed By: #### L 500.2500, L100.0100 ####[facility] [address] [place], [address] CO2 [Moles/Vol] 22.0 mmol/L Normal 21.0-32.0 [facility] Comment on above: Performed By: #### L 500.2500, L100.0100 ####[facility] [address] [place], [address] Creatinine [Mass/Vol] 0.92 mg/dL Normal 0.70-1.20 [facility] Comment on above: Performed By: #### L 500.2500, L100.0100 ####[facility] [address] [place], [address] ECRCL 51.63 ml/min Normal 50-250 [facility] Comment on above: Performed By: #### L 500.2500, L100.0100 ####[facility] [address] [place], [address] GAP 11 Normal 5-15 [facility] Comment on above: Performed By: #### L 500.2500, L100.0100 ####[facility] [address] [place], [address] GFR/1.73 sq M.predicted among non-blacks MDRD (S/P/Bld) [Vol rate/Area] 63 mL/min/{1.73_m2} Normal >60 [facility] Comment on above: Result Comment: mL/m in/1.73m2 CKD-EPI Creatinine Equation (2020) Performed By: #### L 500.2500, L100.0100 ####[facility] [address] [place], [address] Glucose [Mass/Vol] 96 mg/dL Normal 70-99 [facility] Comment on above: Performed By: #### L 500.2500, L100.0100 ####[facility] [address] [place], [address] Potassium [Moles/Vol] 3.7 mmol/L Normal 3.3-5.1 [facility] Comment on above: Performed By: #### L 500.2500, L100.0100 ####[facility] [address] [place], [address] Sodium [Moles/Vol] 133 mmol/L Normal 133-145 [facility] Comment on above: Performed By: #### L 500.2500, L100.0100 ####[facility] [address] [place], [address] Urea nitrogen [Mass/Vol] 17 mg/dL Normal 4-19 [facility] Comment on above: Performed By: #### L 500.2500, L100.0100 ####[facility] [address] [place], [address] CBC W/Diff, Automatedon 07-3 0-2025 Absolute Lymph 0.76 X10 3/uL Low 0.83-4.51 [facility] Comment on above: Performed By: #### L 500.2500, L100.0100 ####[facility] [address] [place], [address] Absolute Neut 5.0 X10 3/uL Normal 2.0-7.7 [facility] Comment on above: Performed By: #### L 500.2500, L100.0100 ####[facility] [address] [place], [address] Basophils/100 WBC (Bld) 0.1 % Normal 0-1 [facility] Comment on above: Performed By: #### L 500.2500, L100.0100 ####[facility] [address] [place], [address] Eosinophils/100 WBC (Bld) 0.4 % Normal 0-5 [facility] Comment on above: Performed By: #### L 500.2500, L100.0100 ####[facility] [address] [place], [address] Erythrocyte distribution width (RBC) [Ratio] 15.6 % High 11.6-14.6 [facility] Comment on above: Performed By: #### L 500.2500, L100.0100 ####[facility] [address] [place], [address] Hematocrit (Bld) [Volume fraction] 28.2 % Low 37-47 [facility] Comment on above: Performed By: #### L 500.2500, L100.0100 ####[facility] [address] [place], [address] Hemoglobin (Bld) [Mass/Vol] 9.4 g/dL Low 12.0-15.0 [facility] Comment on above: Performed By: #### L 500.2500, L100.0100 ####[facility] [address] [place], [address] IG% 0.300 Normal 0.0-0.9 [facility] Comment on above: Result Comment: IG% - Immature Granulocytes (promyelocytes, myelocytes andmetamyelocytes) > 1% indicates that a LEFT SHIFT is Present. Performed By: #### L 500.2500, L100.0100 ####[facility] [address] [place], [address] Lymphocytes/100 WBC (Bld) 11.1 % Low 19-41 [facility] Comment on above: Performed By: #### L 500.2500, L100.0100 ####[facility] [address] [place], [address] MCH (RBC) [Entitic mass] 36.9 pg High 27.0-32.0 [facility] Comment on above: Performed By: #### L 500.2500, L100.0100 ####[facility] [address] [place], [address] MCHC (RBC) [Mass/Vol] 33.3 g/dL Normal 32-36 [facility] Comment on above: Performed By: #### L 500.2500, L100.0100 ####[facility] [address] [place], [address] MCV (RBC) [Entitic vol] 110.6 fL High 81-99 [facility] Comment on above: Performed By: #### L 500.2500, L100.0100 ####[facility] [address] [place], [address] Monocytes/100 WBC (Bld) 14.6 % High 0-10 [facility] Comment on above: Performed By: #### L 500.2500, L100.0100 ####[facility] [address] [place], [address] Neutrophils/100 WBC (Bld) 73.5 % High 47-70 [facility] Comment on above: Performed By: #### L 500.2500, L100.0100 ####[facility] [address] [place], [address] Nucleated RBC (Bld) [#/Vol] 0 10*3/uL Normal 0-5 [facility] Comment on above: Performed By: #### L 500.2500, L100.0100 ####[facility] [address] [place], [address] Platelet mean volume (Bld) [Entitic vol] 10.4 fL Normal 6.2-12.0 [facility] Comment on above: Performed By: #### L 500.2500, L100.0100 ####[facility] [address] [place], [address] Platelets (Bld) [#/Vol] 176 10*3/uL Normal 150-450 [facility] Comment on above: Performed By: #### L 500.2500, L100.0100 ####[facility] [address] [place], [address] RBC (Bld) [#/Vol] 2.55 10*6/uL Low 4.2-5.4 [facility] Comment on above: Performed By: #### L 500.2500, L100.0100 ####[facility] [address] [place], [address] RDW SD 62.7 fl High 35.1-43.9 [facility] Comment on above: Performed By: #### L 500.2500, L100.0100 ####[facility] [address] [place], [address] WBC (Bld) [#/Vol] 6.8 10*3/uL Normal 4.4-11.0 [facility] Comment on above: Performed By: #### L 500.2500, L100.0100 ####[facility] [address] [place], [address] HH, Hemoglobin AND Hematocri ton 10-18-2024 Hematocrit (Bld) [Volume fraction] 28.2 % Low 37-47 [facility] Comment on above: Performed By: #### L 100.0600 ####[facility] [address] [place], [address] Hemoglobin (Bld) [Mass/Vol] 9.5 g/dL Low 12.0-15.0 [facility] Comment on above: Performed By: #### L 100.0600 ####[facility] [address] [place], [address] Ankle min 3 Viewson 10-18-19 25 Ankle min 3 Views Normal [facility] Basic Metabolic Profile (BMP )on 10-17-2024 BUN/CRE 20.7 RATIO High 10-20 [facility] Comment on above: Performed By: #### L 100.0500, L500.2500 ####[facility] [address] [place], [address] Calcium [Mass/Vol] 8.6 mg/dL Normal 7.6-11.0 [facility] Comment on above: Performed By: #### L 100.0500, L500.2500 ####[facility] [address] [place], [address] Chloride [Moles/Vol] 103 mmol/L Normal 98-108 [facility] Comment on above: Performed By: #### L 100.0500, L500.2500 ####[facility] [address] [place], [address] CO2 [Moles/Vol] 20.7 mmol/L Low 21.0-32.0 [facility] Comment on above: Performed By: #### L 100.0500, L500.2500 ####[facility] [address] [place], [address] Creatinine [Mass/Vol] 0.68 mg/dL Low 0.70-1.20 [facility] Comment on above: Performed By: #### L 100.0500, L500.2500 ####[facility] [address] [place], [address] ECRCL 59.38 ml/min Normal 50-250 [facility] Comment on above: Performed By: #### L 100.0500, L500.2500 ####[facility] [address] [place], [address] GAP 12 Normal 5-15 [facility] Comment on above: Performed By: #### L 100.0500, L500.2500 ####[facility] [address] [place], [address] GFR/1.73 sq M.predicted among non-blacks MDRD (S/P/Bld) [Vol rate/Area] 87 mL/min/{1.73_m2} Normal >60 [facility] Comment on above: Result Comment: mL/m in/1.73m2 CKD-EPI Creatinine Equation (2020) Performed By: #### L 100.0500, L500.2500 ####[facility] [address] [place], [address] Glucose [Mass/Vol] 135 mg/dL High 70-99 [facility] Comment on above: Performed By: #### L 100.0500, L500.2500 ####[facility] [address] [place], [address] Potassium [Moles/Vol] 3.9 mmol/L Normal 3.3-5.1 [facility] Comment on above: Performed By: #### L 100.0500, L500.2500 ####[facility] [address] [place], [address] Sodium [Moles/Vol] 136 mmol/L Normal 133-145 [facility] Comment on above: Performed By: #### L 100.0500, L500.2500 ####[facility] [address] [place], [address] Urea nitrogen [Mass/Vol] 14 mg/dL Normal 4-19 [facility] Comment on above: Performed By: #### L 100.0500, L500.2500 ####[facility] [address] [place], [address] CBC-Complete Blood Cnt No Di ffon 10-17-2024 Erythrocyte distribution width (RBC) [Ratio] 15.9 % High 11.6-14.6 [facility] Comment on above: Performed By: #### L 100.0500, L500.2500 ####[facility] [address] [place], [address] Hematocrit (Bld) [Volume fraction] 30.5 % Low 37-47 [facility] Comment on above: Performed By: #### L 100.0500, L500.2500 ####[facility] [address] [place], [address] Hemoglobin (Bld) [Mass/Vol] 10.2 g/dL Low 12.0-15.0 [facility] Comment on above: Performed By: #### L 100.0500, L500.2500 ####[facility] [address] [place], [address] MCH (RBC) [Entitic mass] 37.2 pg High 27.0-32.0 [facility] Comment on above: Performed By: #### L 100.0500, L500.2500 ####[facility] [address] [place], [address] MCHC (RBC) [Mass/Vol] 33.4 g/dL Normal 32-36 [facility] Comment on above: Performed By: #### L 100.0500, L500.2500 ####[facility] [address] [place], [address] MCV (RBC) [Entitic vol] 111.3 fL High 81-99 [facility] Comment on above: Performed By: #### L 100.0500, L500.2500 ####[facility] [address] [place], [address] Platelet mean volume (Bld) [Entitic vol] 10.6 fL Normal 6.2-12.0 [facility] Comment on above: Performed By: #### L 100.0500, L500.2500 ####[facility] [address] [place], [address] Platelets (Bld) [#/Vol] 176 10*3/uL Normal 150-450 [facility] Comment on above: Performed By: #### L 100.0500, L500.2500 ####[facility] [address] [place], [address] RBC (Bld) [#/Vol] 2.74 10*6/uL Low 4.2-5.4 [facility] Comment on above: Performed By: #### L 100.0500, L500.2500 ####[facility] [address] [place], [address] RDW SD 65.1 fl High 35.1-43.9 [facility] Comment on above: Performed By: #### L 100.0500, L500.2500 ####[facility] [address] [place], [address] WBC (Bld) [#/Vol] 7.1 10*3/uL Normal 4.4-11.0 [facility] Comment on above: Performed By: #### L 100.0500, L500.2500 ####[facility] [address] [place], [address] Extremity Lower without Cont raon 10-17-2024 Extremity Lower without Contra Normal [facility] Bedside Glucoseon 10-16-2024 FINGERSTICK GLU 113 mg/dL High 74-106 [facility] Comment on above: Result Comment: TRACEY SALDAÑA OF PATIENT CARE PER NURSING PROTOCOL Performed By: #### L 501.080 ####[facility] [address] [place], [address] Consultation - Hospitaliston 10-16-2024 Consultation - Hospitalist Normal [facility] Knee 1 or 2 Viewson 10-17-19 25 Knee 1 or 2 Views Normal [facility] Knee 1 or 2 Views Normal [facility] MR/POSTOP.ANEon 10-16-2024 MR/POSTOP.ANE Normal [facility] MR/UOQZWJHX5gf 10-16-2024 MR/POSTOPAN2 Normal [facility] Operative Reporton 5 Operative Report Normal [facility] MRSA/SAID NASAL SCREENon MRSA+SAID SCRN Negative Normal [facility] Comment on above: Performed By: #### M 100.651 ####[facility] [address] [place], [address] Absolute lymphocyte countOrd ered By: Carolyn Ruvalcaba on 10-11-2024 Lymphocytes Auto (Unsp spec) [#/Vol] 1.13 10*3/uL 0.83-4.51 [facility] Absolute neutrophil countOrd ered By: Carolynmilka NicolePeg on 10-11-2024 Neutrophils (Bld) [#/Vol] 2.1 10*3/uL 2.0-7.7 [facility] Anion gap in Serum or Plasma Ordered By: Carolyn Ruvalcaba on 10-11-2024 Anion gap [Moles/Vol] 13 mmol/L 5-15 [facility] Automated lymphocyte count a s percentage of total leukocytesOrdered By: Carolyn Ruvalcaba on 10-11-2024 Lymphocytes/100 WBC Auto (Unsp spec) 30.5 % 19- [facility] BUN/creatinine ratioOrdered By: Carolyn Ruvalcaba on 10-11-2024 Urea nitrogen/Creatinine [Mass ratio] 14.2 mg/mg 10-20 [facility] Basophil percentageOrdered B y: Carolyn Ruvalcaba on 10-11-2024 Basophils/100 WBC (Bld) 0.3 % 0-1 [facility] Bilirubin, totalOrdered By: Carolyn Ruvalcaba on 10-11-2024 Bilirubin [Mass/Vol] 0.40 mg/dL 0.00-1.30 [facility] Blood manual differential co mment interpretation (narrative result)Ordered By: Carolyn Ruvalcaba on 10-11-2024 Manual differential comment Jack (Bld) [Interp] SCANNED [facility] Blood polychromasia detectio n by light microscopyOrdered By: Carolyn Ruvalcaba on 10-11-2024 Polychromasia LM Ql (Bld) 1+ [facility] CBC W/Diff, Automatedon 09-20 Anisocytosis Ql (Bld) 1+ Normal [facility] Comment on above: Performed By: #### L 100.0100, L500.4050 ####[facility] [address] [place], [address] POLYCHROMASIA 1+ Normal [facility] Comment on above: Performed By: #### L 100.0100, L500.4050 ####[facility] [address] [place], [address] PLT EST ADEQUATE Normal ADEQ [facility] Comment on above: Performed By: #### L 100.0100, L500.4050 ####[facility] [address] [place], [address] SMEAR COMMENT SCANNED Normal [facility] Comment on above: Performed By: #### L 100.0100, L500.4050 ####[facility] [address] [place], [address] Carbon dioxide, total [Moles /volume] in Central venous bloodOrdered By: Carolyn Ruvalcaba on 10-11-2024 CO2 [Moles/Vol] 21.4 mmol/L 21.0-32.0 [facility] Chloride assayOrdered By: Ke Ruvalcaba on 10-11-2024 Chloride [Moles/Vol] 102 mmol/L 98-108 [facility] Comprehensive Metabolic Prof ilon 10-11-2024 Albumin [Mass/Vol] 4.0 g/dL Normal 3.4-4.8 [facility] Comment on above: Order Comment: CC: C MP CBCD TO DR RODRIGUEZ Performed By: #### L 100.0100, L500.4050 ####[facility] [address] [place], [address] Albumin/Globulin [Mass ratio] 1.4 {ratio} Normal 0.9-2.4 [facility] Comment on above: Order Comment: CC: C MP CBCD TO DR RODRIGUEZ Performed By: #### L 100.0100, L500.4050 ####[facility] [address] [place], [address] ALK PHOS 82 U/L Normal 35-104 [facility] Comment on above: Order Comment: CC: C MP CBCD TO DR RODRIGUEZ Performed By: #### L 100.0100, L500.4050 ####[facility] [address] [place], [address] ALT [Catalytic activity/Vol] 14 U/L Normal <=34 [facility] Comment on above: Order Comment: CC: C MP CBCD TO DR RODRIGUEZ Performed By: #### L 100.0100, L500.4050 ####[facility] [address] [place], [address] AST [Catalytic activity/Vol] 22 U/L Normal <=31 [facility] Comment on above: Order Comment: CC: C MP CBCD TO DR RODRIGUEZ Performed By: #### L 100.0100, L500.4050 ####[facility] [address] [place], [address] Bilirubin [Mass/Vol] 0.40 mg/dL Normal 0.00-1.30 [facility] Comment on above: Order Comment: CC: C MP CBCD TO DR RODRIGUEZ Performed By: #### L 100.0100, L500.4050 ####[facility] [address] [place], [address] BUN/CRE 14.2 RATIO Normal 10-20 [facility] Comment on above: Order Comment: CC: C MP CBCD TO DR RODRIGUEZ Performed By: #### L 100.0100, L500.4050 ####[facility] [address] [place], [address] Calcium [Mass/Vol] 9.3 mg/dL Normal 7.6-11.0 [facility] Comment on above: Order Comment: CC: C MP CBCD TO DR RODRIGUEZ Performed By: #### L 100.0100, L500.4050 ####[facility] [address] [place], [address] Chloride [Moles/Vol] 102 mmol/L Normal 98-108 [facility] Comment on above: Order Comment: CC: C MP CBCD TO DR RODRIGUEZ Performed By: #### L 100.0100, L500.4050 ####[facility] [address] [place], [address] CO2 [Moles/Vol] 21.4 mmol/L Normal 21.0-32.0 [facility] Comment on above: Order Comment: CC: C MP CBCD TO DR RODRIGUEZ Performed By: #### L 100.0100, L500.4050 ####[facility] [address] [place], [address] Creatinine [Mass/Vol] 1.08 mg/dL Normal 0.70-1.20 [facility] Comment on above: Order Comment: CC: C MP CBCD TO DR RODRIGUEZ Performed By: #### L 100.0100, L500.4050 ####[facility] [address] [place], [address] ECRCL 44.99 ml/min Low 50-250 [facility] Comment on above: Order Comment: CC: C MP CBCD TO DR RODRIGUEZ Performed By: #### L 100.0100, L500.4050 ####[facility] [address] [place], [address] GAP 13 Normal 5-15 [facility] Comment on above: Order Comment: CC: C MP CBCD TO DR RODRIGUEZ Performed By: #### L 100.0100, L500.4050 ####[facility] [address] [place], [address] GFR/1.73 sq M.predicted among non-blacks MDRD (S/P/Bld) [Vol rate/Area] 52 mL/min/{1.73_m2} Low >60 [facility] Comment on above: Order Comment: CC: C MP CBCD TO DR RODRIGUEZ Result Comment: mL/m in/1.73m2 CKD-EPI Creatinine Equation (2020) Performed By: #### L 100.0100, L500.4050 ####[facility] [address] [place], [address] Globulin (S) [Mass/Vol] 2.9 g/dL Normal 2.2-4.2 [facility] Comment on above: Order Comment: CC: C MP CBCD TO DR RODRIGUEZ Performed By: #### L 100.0100, L500.4050 ####[facility] [address] [place], [address] Glucose [Mass/Vol] 129 mg/dL High 70-99 [facility] Comment on above: Order Comment: CC: C MP CBCD TO DR RODRIGUEZ Performed By: #### L 100.0100, L500.4050 ####[facility] [address] [place], [address] Potassium [Moles/Vol] 4.1 mmol/L Normal 3.3-5.1 [facility] Comment on above: Order Comment: CC: C MP CBCD TO DR RODRIGUEZ Performed By: #### L 100.0100, L500.4050 ####[facility] [address] [place], [address] Sodium [Moles/Vol] 136 mmol/L Normal 133-145 [facility] Comment on above: Order Comment: CC: C MP CBCD TO DR RODRIGUEZ Performed By: #### L 100.0100, L500.4050 ####[facility] [address] [place], [address] T PROT 6.9 g/dL Normal 5.9-8.4 [facility] Comment on above: Order Comment: CC: C MP CBCD TO DR RODRIGUEZ Performed By: #### L 100.0100, L500.4050 ####[facility] [address] [place], [address] Urea nitrogen [Mass/Vol] 15 mg/dL Normal 4-19 [facility] Comment on above: Order Comment: CC: C MP CBCD TO DR RODRIGUEZ Performed By: #### L 100.0100, L500.4050 ####[facility] [address] [place], [address] Eosinophil percentageOrdered By: Carolyn Ruvalcaba on 10-11-2024 Eosinophils/100 WBC (Bld) 1.1 % 0-5 [facility] Erythrocyte distribution wid th ratioOrdered By: Carolyn Ruvalcaba on 10-11-2024 Erythrocyte distribution width (RBC) [Ratio] 16.2 % High 11.6-14.6 [facility] Erythrocyte distribution wid th standard deviationOrdered By: Carolyn Ruvalcaba on 10-11-2024 Erythrocyte distribution width (RBC) [Ratio] 65.8 fl High 35.1-43.9 [facility] Glomerular filtration rate ( GFR) estimation/1.73 sq m using serum, plasma, or whole bOrdered By: Carolyn Ruvalcaba on 10-11-2024 GFR/1.73 sq M.predicted among non-blacks MDRD (S/P/Bld) [Vol rate/Area] 52 mL/min/{1.73_m2} Low >60 [facility] Comment on above: mL/min/1.73m2 CKD-EP I Creatinine Equation (2020) Hematocrit Auto (Bld) [Volum e fraction]Ordered By: Carolyn Ruvalcaba on 10-11-2024 Hematocrit (Bld) [Volume fraction] 36.1 % Low 37-47 [facility] Hemoglobin measurementOrdere d By: Carolyn Ruvalcaba on 10-11-2024 Hemoglobin (Bld) [Mass/Vol] 12.1 g/dL 12.0-15.0 [facility] Immature granulocytes/100 WB C Auto (Bld)Ordered By: Carolyn Peg on 10-11-2024 Immature granulocytes/100 WBC (Bld) 0.500 % 0.0-0.9 [facility] Comment on above: IG% - Immature Granu locytes (promyelocytes, myelocytes and metamyelocytes) > 1% indicates that a LEFT SHIFT is Present. Laboratory - Chemistry and C hemistry - challengeOrdered By: Carolyn Ruvalcaba on 10-11-2024 AST [Catalytic activity/Vol] 22 U/L <32 [facility] Laboratory - Hematology and Cell countsOrdered By: Carolyn Peg on 10-11-2024 Anisocytosis Ql (Bld) 1+ [facility] MCV (mean corpuscular volume ) determinationOrdered By: Carolyn Ruvalcaba on 10-11-2024 MCV (RBC) [Entitic vol] 110.7 fL High 81-99 [facility] MRSA screenOrdered By: Az Rodriguez on 10-11-2024 MRSA DNA JANY+probe Ql (Unsp spec) [facility] Mean corpuscular hemoglobin (MCH) determinationOrdered By: Carolyn NicolePeg on 10-11-2024 MCH (RBC) [Entitic mass] 37.1 pg High 27.0-32.0 [facility] Mean corpuscular hemoglobin concentration (MCHC) determinationOrdered By: Carolyn NicolePeg on 10-11-2024 MCHC (RBC) [Mass/Vol] 33.5 g/dL 32-36 [facility] Mean platelet volume determi nationOrdered By: Carolyn NicolePeg on 10-11-2024 Platelet mean volume (Bld) [Entitic vol] 10.3 fL 6.2-12.0 [facility] Monocyte percentageOrdered B y: Carolyn Ruvalcaba on 10-11-2024 Monocytes/100 WBC (Bld) 10.3 % High 0-10 [facility] Neutrophil percentageOrdered By: Carolyn Ruvalcaba on 10-11-2024 Neutrophils/100 WBC (Bld) 57.3 % 47-70 [facility] No Panel InformationOrdered By: Carolyn Ruvalcaba on 10-11-2024 1+ [facility] 22 U/L <32 [facility] Nucleated red blood cell per centageOrdered By: Carolyn Ruvalcaba on 10-11-2024 Nucleated RBC/100 WBC (Bld) [Ratio] 0 % 0-5 [facility] Oncology Visit Reporton 09-20 Oncology Visit Report Normal [facility] Platelet countOrdered By: Ty ra Peg on 10-11-2024 Platelets (Bld) [#/Vol] 244 10*3/uL 150-450 [facility] Platelet estimateOrdered By: Carolyn Ruvalcaba on 10-11-2024 Platelets LM Ql (Bld) ADEQUATE ADEQ [facility] Potassium measurement (mass/ volume)Ordered By: Carolyn Ruvalcaba on 10-11-2024 Potassium (Unsp spec) [Mass/Vol] 4.1 mmol/L 3.3-5.1 [facility] RBC Auto (Bld) [#/Vol]Ordere d By: Carolyn NicolePeg on 10-11-2024 RBC (Bld) [#/Vol] 3.26 10*6/uL Low 4.2-5.4 [facility] Serum creatinine measurement (mass/volume)Ordered By: Carolyn Ruvalcaba on 10-11-2024 Creatinine [Mass/Vol] 1.08 mg/dL 0.70-1.20 [facility] Serum globulin measurementOr dered By: Carolyn Ruvalcaba on 10-11-2024 Globulin (S) [Mass/Vol] 2.9 g/dL 2.2-4.2 [facility] Serum glucose measurement (m ass/volume)Ordered By: Carolyn Ruvalcaba on 10-11-2024 Glucose [Mass/Vol] 129 mg/dL High 70-99 [facility] Serum or plasma alanine bey otransferase (ALT) measurementOrdered By: Carolyn Ruvalcaba on 10-11-2024 ALT [Catalytic activity/Vol] 14 U/L <35 [facility] Serum or plasma albumin niels urement (mass/volume)Ordered By: Carolyn Ruvalcaba on 10-11-2024 Albumin [Mass/Vol] 4.0 g/dL 3.4-4.8 [facility] Serum or plasma albumin/glob ulin mass ratioOrdered By: Carolyn Ruvalcaba on 10-11-2024 Albumin/Globulin [Mass ratio] 1.4 {ratio} 0.9-2.4 [facility] Serum or plasma alkaline victor hugo sphatase measurementOrdered By: Carolyn Ruvalcaba 10-11-2024 ALP [Catalytic activity/Vol] 82 U/L 35-104 [facility] Serum or plasma calcium niels urement (mass/volume)Ordered By: Carolyn Ruvalcaba 10-11-2024 Calcium [Mass/Vol] 9.3 mg/dL 7.6-11.0 [facility] Serum or plasma urea nitroge n measurement (mass/volume)Ordered By: Carolyn Ruvalcaba 10-11-2024 Urea nitrogen [Mass/Vol] 15 mg/dL 4-19 [facility] Sodium levelOrdered By: Carolyn Ruvalcaba on 10-11-2024 Sodium [Moles/Vol] 136 mmol/L 133-145 [facility] Total proteinOrdered By: Nayan Ruvalcaba on 10-11-2024 Protein [Mass/Vol] 6.9 g/dL 5.9-8.4 [facility] White blood cell (WBC) count Ordered By: Carolyn Ruvalcaba on 10-11-2024 WBC (Bld) [#/Vol] 3.7 10*3/uL Low 4.4-11.0 [facility] MR/PAT.ANEon 10-05-2024 MR/PAT.ANE Normal [facility] Cardiology Visit Reporton Cardiology Visit Report Normal [facility] Electrocardiogram reportOrde red By: Omero Armas on 08-03-2024 EKG study [facility] [address] [place] [address] 12 Lead EKG 08/01/24 1400 MR#: [id number] Acct: [id number] Name: BERNICE HASSAN Rep #:[id number] : 1945 79 From: Omero betancur MD Attending Dr: Dr. Dago Emery MD Status: REG CLI Ordering Dr: Dago Emery MD Date: Location: [facility] Sex: F C Admitted: Test Reason [...] effect Abnormal ECG Confirmed by Omero Armas ([id number]), editor index BONY SANCHEZ ([id number]) on 08/03/2024 10:09:09 AM Referred By: Dago Emery Confirmed By: Omero Armas 08/03/24 1009 Date _ Omero Armas MD CC: Dr. Dago Emery MD ~ Signed [facility] Other Phone: MRSA/SAID NASAL SCREENon MRSA+SAID SCRN Reason for Exam: PRE OP MRSA MRSA Negative S. AUREUS S. aureus Negative Normal [facility] Comment on above: Performed By: #### M 100.651, L501.1800 ####[facility] [address] [place], [address] 12 Lead EKGon 08-01-2024 12 Lead EKG Normal [facility] Extremity Lower without Cont raon 08-01-2024 Extremity Lower without Contra Normal [facility] MR/PAT.ANEon 08-01-2024 MR/PAT.ANE Normal [facility] Activated partial thrombopla stin time (aPTT) in platelet poor plasma by coagulation aOrdered By: Dago Emery on 07-31-2024 aPTT Coag (PPP) [Time] 26.1 s 24.1-36.2 [facility] Albumin, Serumon 07-31-2024 Albumin [Mass/Vol] 3.9 g/dL Normal 3.4-4.8 [facility] Comment on above: Performed By: #### M 100.651, L501.1800 ####[facility] [address] [place], [address] Bilirubin, totalOrdered By: Dago Emery on 07-31-2024 Bilirubin [Mass/Vol] 0.42 mg/dL 0.00-1.30 [facility] Comprehensive Metabolic Prof ilon 07-31-2024 Albumin [Mass/Vol] 4.0 g/dL Normal 3.4-4.8 [facility] Comment on above: Performed By: #### L 300.4310, L500.4050, L300.3900, L506.1001 ####[facility] [address] [place], [address] Albumin/Globulin [Mass ratio] 1.6 {ratio} Normal 0.9-2.4 [facility] Comment on above: Performed By: #### L 300.4310, L500.4050, L300.3900, L506.1001 ####[facility] [address] [place], [address] ALK PHOS 92 U/L Normal 35-104 [facility] Comment on above: Performed By: #### L 300.4310, L500.4050, L300.3900, L506.1001 ####[facility] [address] [place], [address] ALT [Catalytic activity/Vol] 14 U/L Normal <=34 [facility] Comment on above: Performed By: #### L 300.4310, L500.4050, L300.3900, L506.1001 ####[facility] [address] [place], [address] AST [Catalytic activity/Vol] 22 U/L Normal <=31 [facility] Comment on above: Performed By: #### L 300.4310, L500.4050, L300.3900, L506.1001 ####[facility] [address] [place], [address] Bilirubin [Mass/Vol] 0.42 mg/dL Normal 0.00-1.30 [facility] Comment on above: Performed By: #### L 300.4310, L500.4050, L300.3900, L506.1001 ####[facility] [address] [place], [address] BUN/CRE 19.1 RATIO Normal 10-20 [facility] Comment on above: Performed By: #### L 300.4310, L500.4050, L300.3900, L506.1001 ####[facility] [address] [place], [address] Calcium [Mass/Vol] 9.5 mg/dL Normal 7.6-11.0 [facility] Comment on above: Performed By: #### L 300.4310, L500.4050, L300.3900, L506.1001 ####[facility] [address] [place], [address] Chloride [Moles/Vol] 105 mmol/L Normal 98-108 [facility] Comment on above: Performed By: #### L 300.4310, L500.4050, L300.3900, L506.1001 ####[facility] [address] [place], [address] CO2 [Moles/Vol] 23.0 mmol/L Normal 21.0-32.0 [facility] Comment on above: Performed By: #### L 300.4310, L500.4050, L300.3900, L506.1001 ####[facility] [address] [place], [address] Creatinine [Mass/Vol] 0.97 mg/dL Normal 0.70-1.20 [facility] Comment on above: Performed By: #### L 300.4310, L500.4050, L300.3900, L506.1001 ####[facility] [address] [place], [address] GAP 12 Normal 5-15 [facility] Comment on above: Performed By: #### L 300.4310, L500.4050, L300.3900, L506.1001 ####[facility] [address] [place], [address] GFR/1.73 sq M.predicted among non-blacks MDRD (S/P/Bld) [Vol rate/Area] 59 mL/min/{1.73_m2} Low >60 [facility] Comment on above: Result Comment: mL/m in/1.73m2 CKD-EPI Creatinine Equation (2020) Performed By: #### L 300.4310, L500.4050, L300.3900, L506.1001 ####[facility] [address] [place], [address] Globulin (S) [Mass/Vol] 2.4 g/dL Normal 2.2-4.2 [facility] Comment on above: Performed By: #### L 300.4310, L500.4050, L300.3900, L506.1001 ####[facility] [address] [place], [address] Glucose [Mass/Vol] 127 mg/dL High 70-99 [facility] Comment on above: Performed By: #### L 300.4310, L500.4050, L300.3900, L506.1001 ####[facility] [address] [place], [address] Potassium [Moles/Vol] 4.5 mmol/L Normal 3.3-5.1 [facility] Comment on above: Performed By: #### L 300.4310, L500.4050, L300.3900, L506.1001 ####[facility] [address] [place], [address] Sodium [Moles/Vol] 139 mmol/L Normal 133-145 [facility] Comment on above: Performed By: #### L 300.4310, L500.4050, L300.3900, L506.1001 ####[facility] [address] [place], [address] T PROT 6.4 g/dL Normal 5.9-8.4 [facility] Comment on above: Performed By: #### L 300.4310, L500.4050, L300.3900, L506.1001 ####[facility] [address] [place], [address] Urea nitrogen [Mass/Vol] 19 mg/dL Normal 4-19 [facility] Comment on above: Performed By: #### L 300.4310, L500.4050, L300.3900, L506.1001 ####[facility] [address] [place], [address] International normalized rat io (INR) calculationOrdered By: Dago Emery on 07-31-2024 INR Coag (Bld) [Relative time] 0.9 {INR} [facility] Laboratory - Chemistry and C hemistry - challengeOrdered By: Dago Emery on 07-31-2024 AST [Catalytic activity/Vol] 22 U/L <32 [facility] MRSA screenOrdered By: Az Rodriguez on 07-31-2024 MRSA DNA JANY+probe Ql (Unsp spec) [facility] Magnesiumon 07-31-2024 Magnesium [Mass/Vol] 2.3 mg/dL High 1.5-2.2 [facility] Comment on above: Performed By: #### L 501.5200, L501.9520 ####[facility] [address] [place], [address] Magnesium measurement (mass/ volume)Ordered By: Jg Pandey on 07-31-2024 Magnesium (Unsp spec) [Mass/Vol] 2.3 mg/dL High 1.5-2.2 [facility] No Panel InformationOrdered By: Dago Emery on 07-31-2024 22 U/L <32 [facility] Partial Thromboplast Timeon 07-31-2024 aPTT Coag (Bld) [Time] 26.1 s Normal 24.1-36.2 [facility] Comment on above: Performed By: #### L 300.4310, L500.4050, L300.3900, L506.1001 ####[facility] [address] [place], [address] Prothrombin Time w/INRon INR Coag (PPP) [Relative time] 0.9 {INR} Normal [facility] Comment on above: Performed By: #### L 300.4310, L500.4050, L300.3900, L506.1001 ####[facility] [address] [place], [address] PT Coag (PPP) [Time] 12.6 s Normal 11.7-14.9 [facility] Comment on above: Performed By: #### L 300.4310, L500.4050, L300.3900, L506.1001 ####[facility] [address] [place], [place], [id number] Prothrombin timeOrdered By: Dago Emery on 07-31-2024 PT Coag (PPP) [Time] 12.6 s 11.7-14.9 [facility] Serum globulin measurementOr dered By: Dago Emery on 07-31-2024 Globulin (S) [Mass/Vol] 2.4 g/dL 2.2-4.2 [facility] Serum or plasma alanine bey otransferase (ALT) measurementOrdered By: Dago Emery on 07-31-2024 ALT [Catalytic activity/Vol] 14 U/L <35 [facility] Serum or plasma albumin niels urement (mass/volume)Ordered By: Dago Emery on 07-31-2024 Albumin [Mass/Vol] 4.0 g/dL 3.4-4.8 [facility] Serum or plasma albumin/glob ulin mass ratioOrdered By: Dago Emery on 07-31-2024 Albumin/Globulin [Mass ratio] 1.6 {ratio} 0.9-2.4 [facility] Serum or plasma alkaline victor hugo sphatase measurementOrdered By: Dago Emery 07-31-2024 ALP [Catalytic activity/Vol] 92 U/L 35-104 [facility] TSH DL <= 0.005 mIU/L QnOrde red By: Jg Pandey on 07-31-2024 TSH Qn 1.470 uIU/mL 0.300-4.20 0 [facility] Thyroid Stim Hormone (TSH)on 07-31-2024 TSH 1.470 uIU/mL Normal 0.300-4.20 0 [facility] Comment on above: Performed By: #### L 501.5200, L501.9501 ####[facility] [address] [place], [place], [id number] Total proteinOrdered By: Dago Emery on 07-31-2024 Protein [Mass/Vol] 6.4 g/dL 5.9-8.4 [facility] Vitamin D,25 Hydroxyon 07-31 Vitamin D 25-OH 18.9 ng/mL Low 30-100 [facility] Comment on above: Result Comment: [place] min D StatusDeficiency: <20 ng/mL (50nmol/L)Insufficiency: 20-30 ng/mL (50-75 nmol/L)Sufficiency: 30-100 ng/mL (75-250 nmol/L)Toxicity: >100 ng/mL (>250 nmol/L) Performed By: #### L 300.4310, L500.4050, L300.3900, L506.1001 ####[facility] [address] [place], [place], [id number] Absolute lymphocyte countOrd ered By: [facility] on 07-10-2024 Lymphocytes Auto (Unsp spec) [#/Vol] 1.19 10*3/uL 0.83-4.51 [facility] Absolute neutrophil countOrd ered By: [facility] on 07-10-2024 Neutrophils (Bld) [#/Vol] 3.7 10*3/uL 2.0-7.7 [facility] Anion gap in Serum or Plasma Ordered By: [facility] on 07-10-2024 Anion gap [Moles/Vol] 10 mmol/L 5-15 [facility] Automated lymphocyte count a s percentage of total leukocytesOrdered By: [facility] on 07-10-2024 Lymphocytes/100 WBC Auto (Unsp spec) 22.0 % 19-41 [facility] BUN/creatinine ratioOrdered By: [facility] on 07-10-2024 Urea nitrogen/Creatinine [Mass ratio] 20.2 mg/mg High 10-20 [facility] Basophil percentageOrdered B y: [facility] on 07-10-2024 Basophils/100 WBC (Bld) 0.4 % 0-1 [facility] Bilirubin, totalOrdered By: [facility] on 07-10-2024 Bilirubin [Mass/Vol] 0.40 mg/dL 0.00-1.30 [facility] CBC W/Diff, Automatedon - Absolute Lymph 1.19 X10 3/uL Normal 0.83-4.51 [facility] Comment on above: Performed By: #### L 100.0100, L500.4050 ####[facility] [address] [place], [address] Absolute Neut 3.7 X10 3/uL Normal 2.0-7.7 [facility] Comment on above: Performed By: #### L 100.0100, L500.4050 ####[facility] [address] [place], [address] Basophils/100 WBC (Bld) 0.4 % Normal 0-1 [facility] Comment on above: Performed By: #### L 100.0100, L500.4050 ####[facility] [address] [place], [address] Eosinophils/100 WBC (Bld) 1.3 % Normal 0-5 [facility] Comment on above: Performed By: #### L 100.0100, L500.4050 ####[facility] [address] [place], [address] Erythrocyte distribution width (RBC) [Ratio] 14.9 % High 11.6-14.6 [facility] Comment on above: Performed By: #### L 100.0100, L500.4050 ####[facility] [address] [place], [address] Hematocrit (Bld) [Volume fraction] 38.9 % Normal 37-47 [facility] Comment on above: Performed By: #### L 100.0100, L500.4050 ####[facility] [address] [place], [address] Hemoglobin (Bld) [Mass/Vol] 13.0 g/dL Normal 12.0-15.0 [facility] [facility] Comment on above: Performed By: #### L 100.0100, L500.4050 ####[facility] [address] [place], [address] IG% 0.400 Normal 0.0-0.9 [facility] Comment on above: Result Comment: IG% - Immature Granulocytes (promyelocytes, myelocytes andmetamyelocytes) > 1% indicates that a LEFT SHIFT is Present. Performed By: #### L 100.0100, L500.4050 ####[facility] [address] [place], [address] Lymphocytes/100 WBC (Bld) 22.0 % Normal 19-41 [facility] Comment on above: Performed By: #### L 100.0100, L500.4050 ####[facility] [address] [place], [address] MCH (RBC) [Entitic mass] 36.6 pg High 27.0-32.0 [facility] Comment on above: Performed By: #### L 100.0100, L500.4050 ####[facility] [address] [place], [address] MCHC (RBC) [Mass/Vol] 33.4 g/dL Normal 32-36 [facility] Comment on above: Performed By: #### L 100.0100, L500.4050 ####[facility] [address] [place], [address] MCV (RBC) [Entitic vol] 109.6 fL High 81-99 [facility] Comment on above: Performed By: #### L 100.0100, L500.4050 ####[facility] [address] [place], [address] Monocytes/100 WBC (Bld) 8.5 % Normal 0-10 [facility] Comment on above: Performed By: #### L 100.0100, L500.4050 ####[facility] [address] [place], [address] Neutrophils/100 WBC (Bld) 67.4 % Normal 47-70 [facility] Comment on above: Performed By: #### L 100.0100, L500.4050 ####[facility] [address] [place], [address] Nucleated RBC (Bld) [#/Vol] 0 10*3/uL Normal 0-5 [facility] Comment on above: Performed By: #### L 100.0100, L500.4050 ####[facility] [address] [place], [address] Platelet mean volume (Bld) [Entitic vol] 10.9 fL Normal 6.2-12.0 [facility] Comment on above: Performed By: #### L 100.0100, L500.4050 ####[facility] [address] [place], [address] Platelets (Bld) [#/Vol] 252 10*3/uL Normal 150-450 [facility] Comment on above: Performed By: #### L 100.0100, L500.4050 ####[facility] [address] [place], [address] RBC (Bld) [#/Vol] 3.55 10*6/uL Low 4.2-5.4 [facility] Comment on above: Performed By: #### L 100.0100, L500.4050 ####[facility] [address] [place], [address] RDW SD 60.0 fl High 35.1-43.9 [facility] Comment on above: Performed By: #### L 100.0100, L500.4050 ####[facility] [address] [place], [address] WBC (Bld) [#/Vol] 5.4 10*3/uL Normal 4.4-11.0 [facility] Comment on above: Performed By: #### L 100.0100, L500.4050 ####[facility] [address] [place], [address] Carbon dioxide, total [Moles /volume] in Central venous bloodOrdered By: Umang Pate on 07-10-2024 CO2 [Moles/Vol] 23.6 mmol/L 21.0-32.0 [facility] Chloride assayOrdered By: Lara Pate on 07-10-2024 Chloride [Moles/Vol] 105 mmol/L 98-108 [facility] Comprehensive Metabolic Prof ilon 07-10-2024 Albumin [Mass/Vol] 4.0 g/dL Normal 3.4-4.8 [facility] Comment on above: Performed By: #### L 100.0100, L500.4050 ####[facility] [address] [place], [address] Albumin/Globulin [Mass ratio] 1.4 {ratio} Normal 0.9-2.4 [facility] Comment on above: Performed By: #### L 100.0100, L500.4050 ####[facility] [address] [place], [address] ALK PHOS 90 U/L Normal 35-104 [facility] Comment on above: Performed By: #### L 100.0100, L500.4050 ####[facility] [address] [place], [address] ALT [Catalytic activity/Vol] 14 U/L Normal <=34 [facility] Comment on above: Performed By: #### L 100.0100, L500.4050 ####[facility] [address] [place], [address] AST [Catalytic activity/Vol] 22 U/L Normal <=31 [facility] Comment on above: Performed By: #### L 100.0100, L500.4050 ####[facility] [address] [place], [address] Bilirubin [Mass/Vol] 0.40 mg/dL Normal 0.00-1.30 [facility] Comment on above: Performed By: #### L 100.0100, L500.4050 ####[facility] [address] [place], [address] BUN/CRE 20.2 RATIO High 10-20 [facility] Comment on above: Performed By: #### L 100.0100, L500.4050 ####[facility] [address] [place], [address] Calcium [Mass/Vol] 9.3 mg/dL Normal 7.6-11.0 [facility] Comment on above: Performed By: #### L 100.0100, L500.4050 ####[facility] [address] [place], [address] Chloride [Moles/Vol] 105 mmol/L Normal 98-108 [facility] Comment on above: Performed By: #### L 100.0100, L500.4050 ####[facility] [address] [place], [address] CO2 [Moles/Vol] 23.6 mmol/L Normal 21.0-32.0 [facility] Comment on above: Performed By: #### L 100.0100, L500.4050 ####[facility] [address] [place], [address] Creatinine [Mass/Vol] 0.97 mg/dL Normal 0.70-1.20 [facility] Comment on above: Performed By: #### L 100.0100, L500.4050 ####[facility] [address] [place], [address] ECRCL 50.94 ml/min Normal 50-250 [facility] Comment on above: Performed By: #### L 100.0100, L500.4050 ####[facility] [address] [place], [address] GAP 10 Normal 5-15 [facility] Comment on above: Performed By: #### L 100.0100, L500.4050 ####[facility] [address] [place], [address] GFR/1.73 sq M.predicted among non-blacks MDRD (S/P/Bld) [Vol rate/Area] 59 mL/min/{1.73_m2} Low >60 [facility] Comment on above: Result Comment: mL/m in/1.73m2 CKD-EPI Creatinine Equation (2020) Performed By: #### L 100.0100, L500.4050 ####[facility] [address] [place], [address] Globulin (S) [Mass/Vol] 2.9 g/dL Normal 2.2-4.2 [facility] Comment on above: Performed By: #### L 100.0100, L500.4050 ####[facility] [address] [place], [address] Glucose [Mass/Vol] 112 mg/dL High 70-99 [facility] Comment on above: Performed By: #### L 100.0100, L500.4050 ####[facility] [address] [place], [address] Potassium [Moles/Vol] 4.0 mmol/L Normal 3.3-5.1 [facility] Comment on above: Performed By: #### L 100.0100, L500.4050 ####[facility] [address] [place], [address] Sodium [Moles/Vol] 139 mmol/L Normal 133-145 [facility] Comment on above: Performed By: #### L 100.0100, L500.4050 ####[facility] [address] [place], [address] T PROT 6.9 g/dL Normal 5.9-8.4 [facility] Comment on above: Performed By: #### L 100.0100, L500.4050 ####[facility] [address] [place], [address] Urea nitrogen [Mass/Vol] 20 mg/dL High 4-19 [facility] Comment on above: Performed By: #### L 100.0100, L500.4050 ####[facility] [address] [place], [address] Eosinophil percentageOrdered By: Umang Pate on 07-10-2024 Eosinophils/100 WBC (Bld) 1.3 % 0-5 [facility] Erythrocyte distribution wid th ratioOrdered By: Umang Pate on 07-10-2024 Erythrocyte distribution width (RBC) [Ratio] 14.9 % High 11.6-14.6 [facility] Erythrocyte distribution wid th standard deviationOrdered By: [facility]c Healthsheree Pate on 07-10-2024 Erythrocyte distribution width (RBC) [Ratio] 60.0 fl High 35.1-43.9 [facility] Glomerular filtration rate ( GFR) estimation/1.73 sq m using serum, plasma, or whole bOrdered By: Umang Pate on 07-10-2024 GFR/1.73 sq M.predicted among non-blacks MDRD (S/P/Bld) [Vol rate/Area] 59 mL/min/{1.73_m2} Low >60 [facility] Comment on above: mL/min/1.73m2 CKD-EP I Creatinine Equation (2020) Hematocrit Auto (Bld) [Volum e fraction]Ordered By: Umang Pate on 07-10-2024 Hematocrit (Bld) [Volume fraction] 38.9 % 37-47 [facility] Hemoglobin measurementOrdere d By: Umang Pate on 07-10-2024 Hemoglobin (Bld) [Mass/Vol] 13.0 g/dL 12.0-15.0 [facility] Immature granulocytes/100 WB C Auto (Bld)Ordered By: Umang Pate on 07-10-2024 Immature granulocytes/100 WBC (Bld) 0.400 % 0.0-0.9 [facility] Comment on above: IG% - Immature Granu locytes (promyelocytes, myelocytes and metamyelocytes) > 1% indicates that a LEFT SHIFT is Present. Laboratory - Chemistry and C hemistry - challengeOrdered By: Umang Pate on 07-10-2024 AST [Catalytic activity/Vol] 22 U/L <32 [facility] MCV (mean corpuscular volume ) determinationOrdered By: Umang Pate on 07-10-2024 MCV (RBC) [Entitic vol] 109.6 fL High 81-99 [facility] Mean corpuscular hemoglobin (MCH) determinationOrdered By: Umang Pate on 07-10-2024 MCH (RBC) [Entitic mass] 36.6 pg High 27.0-32.0 [facility] Mean corpuscular hemoglobin concentration (MCHC) determinationOrdered By: Umang Pate on 07-10-2024 MCHC (RBC) [Mass/Vol] 33.4 g/dL 32-36 [facility] Mean platelet volume determi nationOrdered By: Umang Pate on 07-10-2024 Platelet mean volume (Bld) [Entitic vol] 10.9 fL 6.2-12.0 [facility] Monocyte percentageOrdered B y: Umang Pate on 07-10-2024 Monocytes/100 WBC (Bld) 8.5 % 0-10 [facility] Neutrophil percentageOrdered By: Umang Pate on 07-10-2024 Neutrophils/100 WBC (Bld) 67.4 % 47-70 [facility] Nucleated red blood cell per centageOrdered By: Umang Pate on 07-10-2024 Nucleated RBC/100 WBC (Bld) [Ratio] 0 % 0-5 [facility] Oncology Visit Reporton 06-21 Oncology Visit Report Normal [facility] Platelet countOrdered By: Lara Pate on 07-10-2024 Platelets (Bld) [#/Vol] 252 10*3/uL 150-450 [facility] Potassium measurement (mass/ volume)Ordered By: Umang Pate on 07-10-2024 Potassium (Unsp spec) [Mass/Vol] 4.0 mmol/L 3.3-5.1 [facility] RBC Auto (Bld) [#/Vol]Ordere d By: Umang Pate on 07-10-2024 RBC (Bld) [#/Vol] 3.55 10*6/uL Low 4.2-5.4 [facility] Serum creatinine measurement (mass/volume)Ordered By: Umang Pate on 07-10-2024 Creatinine [Mass/Vol] 0.97 mg/dL 0.70-1.20 [facility] Serum globulin measurementOr dered By: Umang Pate on 07-10-2024 Globulin (S) [Mass/Vol] 2.9 g/dL 2.2-4.2 [facility] Serum glucose measurement (m ass/volume)Ordered By: Umang Pate on 07-10-2024 Glucose [Mass/Vol] 112 mg/dL High 70-99 [facility] Serum or plasma alanine bey otransferase (ALT) measurementOrdered By: Umang Pate on 07-10-2024 ALT [Catalytic activity/Vol] 14 U/L <35 [facility] Serum or plasma albumin niels urement (mass/volume)Ordered By: Umang Pate on 07-10-2024 Albumin [Mass/Vol] 4.0 g/dL 3.4-4.8 [facility] Serum or plasma albumin/glob ulin mass ratioOrdered By: Umang Pate on 07-10-2024 Albumin/Globulin [Mass ratio] 1.4 {ratio} 0.9-2.4 [facility] Serum or plasma alkaline victor hugo sphatase measurementOrdered By: Umang Pate on 07-10-2024 ALP [Catalytic activity/Vol] 90 U/L 35-104 [facility] Serum or plasma calcium niels urement (mass/volume)Ordered By: Umang Pate on 07-10-2024 Calcium [Mass/Vol] 9.3 mg/dL 7.6-11.0 [facility] Serum or plasma urea nitroge n measurement (mass/volume)Ordered By: Umang Herlinda on 07-10-2024 Urea nitrogen [Mass/Vol] 20 mg/dL High 4-19 [facility] Sodium levelOrdered By: Aram Verajoy on 07-10-2024 Sodium [Moles/Vol] 139 mmol/L 133-145 [facility] Total proteinOrdered By: Seng Verashefali on 07-10-2024 Protein [Mass/Vol] 6.9 g/dL 5.9-8.4 [facility] White blood cell (WBC) count Ordered By: Umang Herlinda on 07-10-2024 WBC (Bld) [#/Vol] 5.4 10*3/uL 4.4-11.0 [facility] CBC W/Diff, Automatedon 12-0 Absolute Lymph 1.45 X10 3/uL Normal 0.83-4.51 [facility] Comment on above: Performed By: #### L 100.0100, L500.4050 ####[facility] [address] [place], [address] Absolute Neut 5.9 X10 3/uL Normal 2.0-7.7 [facility] Comment on above: Performed By: #### L 100.0100, L500.4050 ####[facility] [address] [place], [address] Basophils/100 WBC (Bld) 0.1 % Normal 0-1 [facility] Comment on above: Performed By: #### L 100.0100, L500.4050 ####[facility] [address] [place], [address] Eosinophils/100 WBC (Bld) 0.9 % Normal 0-5 [facility] Comment on above: Performed By: #### L 100.0100, L500.4050 ####[facility] [address] [place], [address] Erythrocyte distribution width (RBC) [Ratio] 14.6 % Normal 11.6-14.6 [facility] Comment on above: Performed By: #### L 100.0100, L500.4050 ####[facility] [address] [place], [address] Hematocrit (Bld) [Volume fraction] 40.3 % Normal 37-47 [facility] Comment on above: Performed By: #### L 100.0100, L500.4050 ####[facility] [address] [place], [address] Hemoglobin (Bld) [Mass/Vol] 13.3 g/dL Normal 12.0-15.0 [facility] Comment on above: Performed By: #### L 100.0100, L500.4050 ####[facility] [address] [place], [address] IG% 0.500 Normal 0.0-0.9 [facility] Comment on above: Result Comment: IG% - Immature Granulocytes (promyelocytes, myelocytes andmetamyelocytes) > 1% indicates that a LEFT SHIFT is Present. Performed By: #### L 100.0100, L500.4050 ####[facility] [address] [place], [address] Lymphocytes/100 WBC (Bld) 17.7 % Low 19-41 [facility] Comment on above: Performed By: #### L 100.0100, L500.4050 ####[facility] [address] [place], [address] MCH (RBC) [Entitic mass] 36.2 pg High 27.0-32.0 [facility] Comment on above: Performed By: #### L 100.0100, L500.4050 ####[facility] [address] [place], [address] MCHC (RBC) [Mass/Vol] 33.0 g/dL Normal 32-36 [facility] Comment on above: Performed By: #### L 100.0100, L500.4050 ####[facility] [address] [place], [address] MCV (RBC) [Entitic vol] 109.8 fL High 81-99 [facility] Comment on above: Performed By: #### L 100.0100, L500.4050 ####[facility] [address] [place], [address] Monocytes/100 WBC (Bld) 8.1 % Normal 0-10 [facility] Comment on above: Performed By: #### L 100.0100, L500.4050 ####[facility] [address] [place], [address] Neutrophils/100 WBC (Bld) 72.7 % High 47-70 [facility] Comment on above: Performed By: #### L 100.0100, L500.4050 ####[facility] [address] [place], [address] Nucleated RBC (Bld) [#/Vol] 0 10*3/uL Normal 0-5 [facility] Comment on above: Performed By: #### L 100.0100, L500.4050 ####[facility] [address] [place], [address] Platelet mean volume (Bld) [Entitic vol] 10.6 fL Normal 6.2-12.0 [facility] Comment on above: Performed By: #### L 100.0100, L500.4050 ####[facility] [address] [place], [address] Platelets (Bld) [#/Vol] 300 10*3/uL Normal 150-450 [facility] Comment on above: Performed By: #### L 100.0100, L500.4050 ####[facility] [address] [place], [address] RBC (Bld) [#/Vol] 3.67 10*6/uL Low 4.2-5.4 [facility] Comment on above: Performed By: #### L 100.0100, L500.4050 ####[facility] [address] [place], [address] RDW SD 58.3 fl High 35.1-43.9 [facility] Comment on above: Performed By: #### L 100.0100, L500.4050 ####[facility] [address] [place], [address] WBC (Bld) [#/Vol] 8.2 10*3/uL Normal 4.4-11.0 [facility] Comment on above: Performed By: #### L 100.0100, L500.4050 ####[facility] [address] [place], [address] Comprehensive Metabolic Prof [facility] 02-22-2024 Albumin [Mass/Vol] 3.4 g/dL Normal 3.2-5.0 [facility] Comment on above: Performed By: #### L 100.0100, L500.4050 ####[facility] [address] [place], [address] Albumin/Globulin [Mass ratio] 1.0 {ratio} Normal 0.9-2.4 [facility] Comment on above: Performed By: #### L 100.0100, L500.4050 ####[facility] [address] [place], [address] ALK P 85 U/L Normal 45-117 [facility] Comment on above: Performed By: #### L 100.0100, L500.4050 ####[facility] [address] [place], [address] ALT [Catalytic activity/Vol] 29 U/L Normal 13-56 [facility] Comment on above: Performed By: #### L 100.0100, L500.4050 ####[facility] [address] [place], [address] AST [Catalytic activity/Vol] 25 U/L Normal 15-37 [facility] Comment on above: Result Comment: Mode rate Hemolysis, Result may be falsely increased. Performed By: #### L 100.0100, L500.4050 ####[facility] [address] [place], [address] Bilirubin [Mass/Vol] 0.70 mg/dL Normal 0.20-1.00 [facility] Comment on above: Result Comment: For patients on eltrombopag therapy, use of Dimension [place] TBIL is not recommended. Performed By: #### L 100.0100, L500.4050 ####[facility] [address] [place], [address] BUN/CRE 22.5 RATIO High 10-20 [facility] Comment on above: Performed By: #### L 100.0100, L500.4050 ####[facility] [address] [place], [address] CA,Total 8.9 mg/dL Normal 8.5-10.1 [facility] Comment on above: Performed By: #### L 100.0100, L500.4050 ####[facility] [address] [place], [address] Chloride [Moles/Vol] 109 mmol/L High 98-107 [facility] Comment on above: Performed By: #### L 100.0100, L500.4050 ####[facility] [address] [place], [address] CO2 [Moles/Vol] 27.0 mmol/L Normal 21.0-32.0 [facility] Comment on above: Performed By: #### L 100.0100, L500.4050 ####[facility] [address] [place], [address] Creatinine [Mass/Vol] 0.94 mg/dL Normal 0.55-1.02 [facility] Comment on above: Result Comment: The validity of the calculated GFR GFRAA in patients over70 years has not been determined. Clinical correlation isessential. Performed By: #### L 100.0100, L500.4050 ####[facility] [address] [place], [address] ECRCL 52.57 ml/min Normal [facility] Comment on above: Performed By: #### L 100.0100, L500.4050 ####[facility] [address] [place], [address] EST GFR - AA 74 mL/min Normal >60 [facility] Comment on above: Result Comment: Afri can [place] GFR Calc Performed By: #### L 100.0100, L500.4050 ####[facility] [address] [place], [address] GAP 4 Low 5-15 [facility] Comment on above: Performed By: #### L 100.0100, L500.4050 ####[facility] [address] [place], [address] GFR/1.73 sq M.predicted among non-blacks MDRD (S/P/Bld) [Vol rate/Area] 61 mL/min/{1.73_m2} Normal >60 [facility] Comment on above: Result Comment: Non- GFR Calc Performed By: #### L 100.0100, L500.4050 ####[facility] [address] [place], [address] Globulin (S) [Mass/Vol] 3.5 g/dL Normal 2.2-4.2 [facility] Comment on above: Performed By: #### L 100.0100, L500.4050 ####[facility] [address] [place], [address] Glucose [Mass/Vol] 110 mg/dL High 74-106 [facility] Comment on above: Result Comment: Fast ing Glucose result from 100 to 125 mg/dLsuggests IMPAIRED HOMEOSTASIS per A.D.A. criteria. Performed By: #### L 100.0100, L500.4050 ####[facility] [address] [place], [address] Potassium [Moles/Vol] 4.2 mmol/L Normal 3.5-5.1 [facility] Comment on above: Result Comment: Mode rate Hemolysis, Result may be falsely increased. Performed By: #### L 100.0100, L500.4050 ####[facility] [address] [place], [address] Sodium [Moles/Vol] 140 mmol/L Normal 136-145 [facility] Comment on above: Performed By: #### L 100.0100, L500.4050 ####[facility] [address] [place], [address] T PROT 6.9 g/dL Normal 6.4-8.2 [facility] Comment on above: Performed By: #### L 100.0100, L500.4050 ####[facility] [address] [place], [address] Urea nitrogen [Mass/Vol] 21 mg/dL High 7-18 [facility] Comment on above: Performed By: #### L 100.0100, L500.4050 ####[facility] [id number] [place], [address] Oncology Visit Reporton 12-0 Oncology Visit Report Normal [facility] Laboratory - Hematology and Cell countsOrdered By: Umang Pate on 11-09-2023 Anisocytosis Ql (Bld) 1+ [facility] Serum or plasma thyroid stim ulating hormone (TSH) measurement (units/volume)Ordered By: Umang Pate on 08-05-2023 TSH Qn 1.06 uIU/mL 0.358-3.74 [facility] Absolute lymphocyte countOrd ered By: Dago Emery on 01-25-2023 Lymphocytes Auto (Unsp spec) [#/Vol] 1.06 10*3/uL 0.83-4.51 [facility] Basophil percentageOrdered B y: Dago Emery on 01-25-2023 Basophils/100 WBC (Bld) 0.2 % 0-1 [facility] Bilirubin [Mass/Vol] 0.40 mg/dL 0.20-1.00 [facility] Comment on above: For patients on eltr ombopag therapy, use of Dimension [place] TBIL is not recommended. Chloride [Moles/Vol] 108 mmol/L 98-107 [facility] Eosinophils/100 WBC (Bld) 1.1 % 0-5 [facility] Glucose [Mass/Vol] 116 mg/dL 74-106 [facility] Comment on above: Fasting Glucose resu lt from 100 to 125 mg/dL suggests IMPAIRED HOMEOSTASIS per A.D.A. criteria. Neutrophils (Bld) [#/Vol] 2.8 10*3/uL 2.0-7.7 [facility] Neutrophils/100 WBC (Bld) 64.3 % 47-70 [facility] Potassium [Moles/Vol] 3.6 mmol/L 3.5-5.1 [facility] Protein [Mass/Vol] 7.1 g/dL 6.4-8.2 [facility] Sodium [Moles/Vol] 141 mmol/L 136-145 [facility] WBC (Bld) [#/Vol] 4.4 10*3/uL 4.4-11.0 [facility] Blood erythrocytes count (nu mber/volume)Ordered By: Dago Emery on 01-25-2023 RBC (Bld) [#/Vol] 3.25 10*6/uL 4.2-5.4 [facility] Blood hemoglobin measurement (mass/volume)Ordered By: Dago Emery on 01-25-2023 Hemoglobin (Bld) [Mass/Vol] 11.8 g/dL 12.0-15.0 [facility] Blood lymphocytes/100 leukoc ytesOrdered By: Dago Emery on 01-25-2023 Lymphocytes/100 WBC (Bld) 24.1 % 19-41 [facility] Blood manual differential co mment interpretation (narrative result)Ordered By: Dago Emery on 01-25-2023 Manual differential comment Jack (Bld) [Interp] SCANNED [facility] Blood monocytes/100 leukocyt esOrdered By: Dago Emery on 01-25-2023 Monocytes/100 WBC (Bld) 9.8 % 0-10 [facility] Blood platelet mean volumeOr dered By: Dago Emery on 01-25-2023 Platelet mean volume (Bld) [Entitic vol] 11.2 fL 6.2-12.0 [facility] Determination of erythrocyte mean corpuscular volume (MCV)Ordered By: Dago Emery on 01-25-2023 MCV (RBC) [Entitic vol] 113.8 fL 81-99 [facility] Hematocrit Auto (Bld) [Volum e fraction]Ordered By: Dago Emery on 01-25-2023 Hematocrit (Bld) [Volume fraction] 37.0 % 37-47 [facility] Laboratory - Chemistry and C hemistry - challengeOrdered By: Dago Emery on 01-25-2023 ALP [Catalytic activity/Vol] 82 U/L 45-117 [facility] ALT [Catalytic activity/Vol] 15 U/L 13-56 [facility] CO2 [Moles/Vol] 26.0 mmol/L 21.0-32.0 [facility] Globulin (S) [Mass/Vol] 3.8 g/dL 2.2-4.2 [facility] Urea nitrogen/Creatinine [Mass ratio] 18.6 mg/mg 10-20 [facility] Laboratory - Hematology and Cell countsOrdered By: Dago Emery on 01-25-2023 Anisocytosis Ql (Bld) 2+ [facility] Erythrocyte distribution width (RBC) [Entitic vol] 65.5 fL 35.1-43.9 [facility] Erythrocyte distribution width (RBC) [Ratio] 15.7 % 11.6-14.6 [facility] Immature granulocytes/100 WBC (Bld) 0.500 % 0.0-0.9 [facility] Comment on above: IG% - Immature Granu locytes (promyelocytes, myelocytes and metamyelocytes) > 1% indicates that a LEFT SHIFT is Present. MCH (RBC) [Entitic mass] 36.3 pg 27.0-32.0 [facility] Nucleated RBC/100 WBC (Bld) [Ratio] 0 % 0-5 [facility] MCHC Auto (RBC) [Mass/Vol]Or dered By: Dago Emery on 01-25-2023 MCHC (RBC) [Mass/Vol] 31.9 g/dL 32-36 [facility] Macrocytes detectionOrdered By: Dago Emery on 01-25-2023 Macrocytes Ql (Bld) 2+ [facility] No Panel InformationOrdered By: Dago Emery on 01-25-2023 Estimated GFR (MDRD) Amer 67 mL/min >60 [facility] Comment on above: GFR Calc Estimated GFR (MDRD) Non-Af Amer 56 mL/min >60 [facility] Comment on above: Non- GFR Calc Thyroid Stimulating Hormone (TSH) 1.65 uIU/mL 0.358-3.74 [facility] Vitamin D 25-Hydroxy 39.0 ng/mL [facility] Comment on above: Vitamin D 25(OH) Sta tus Range Deficiency <20 ng/mL (50nmol/L) Insufficiency 20 - 30 ng/mL (50 - 75 nmol/L) Sufficiency 30 - 100 ng/mL (75 - 250 nmol/L) Toxicity >100 ng/mL (>250 nmol/L) Platelets bldOrdered By: Dago Emery on 01-25-2023 Platelets (Bld) [#/Vol] 265 10*3/uL 150-450 [facility] Serum or plasma albumin niels urement (mass/volume)Ordered By: Dago Emery on 01-25-2023 Albumin [Mass/Vol] 3.3 g/dL 3.2-5.0 [facility] Serum or plasma albumin/glob ulin mass ratioOrdered By: Dago Emery on 01-25-2023 Albumin/Globulin [Mass ratio] 0.9 {ratio} 0.9-2.4 [facility] Serum or plasma calcium niels urement (mass/volume)Ordered By: Dago Emery on 01-25-2023 Calcium [Mass/Vol] 9.1 mg/dL 8.5-10.1 [facility] Serum or plasma creatinine m easurement (mass/volume)Ordered By: Dago Emery on 01-25-2023 Creatinine [Mass/Vol] 1.02 mg/dL 0.55-1.02 [facility] Comment on above: The validity of the calculated GFR & GFRAA in patients over 70 years has not been determined. Clinical correlation is essential. Serum or plasma urea nitroge n measurement (mass/volume)Ordered By: Dago Emery on 01-25-2023 Urea nitrogen [Mass/Vol] 19 mg/dL 7-18 [facility] Thin prep Papanicolaou smear with manual screeningOrdered By: Dago Emery on 01-25-2023 Thin prep Papanicolaou smear with manual screening 25 U/L 15-37 [facility] Thin prep Papanicolaou smear with manual screening 7 5-15 [facility] Absolute lymphocyte countOrd ered By: Carolyn Ruvalcaba on 11-04-2022 Lymphocytes Auto (Unsp spec) [#/Vol] 1.04 10*3/uL 0.83-4.51 [facility] Basophil percentageOrdered B y: Carolyn Ruvalcaba on 11-04-2022 Basophils/100 WBC (Bld) 0.5 % 0-1 [facility] Bilirubin [Mass/Vol] 0.50 mg/dL 0.20-1.00 [facility] Comment on above: For patients on eltr ombopag therapy, use of [employer] [place] TBIL is not recommended. Chloride [Moles/Vol] 108 mmol/L 98-107 [facility] Eosinophils/100 WBC (Bld) 1.1 % 0-5 [facility] Glucose [Mass/Vol] 127 mg/dL 74-106 [facility] Comment on above: Fasting Glucose resu lt greater than or equal to 126 mg/dL suggests DIABETES MELLITUS per A.D.A. criteria. Neutrophils (Bld) [#/Vol] 4.6 10*3/uL 2.0-7.7 [facility] Neutrophils/100 WBC (Bld) 74.8 % 47-70 [facility] Potassium [Moles/Vol] 3.8 mmol/L 3.5-5.1 [facility] Protein [Mass/Vol] 7.4 g/dL 6.4-8.2 [facility] Sodium [Moles/Vol] 140 mmol/L 136-145 [facility] WBC (Bld) [#/Vol] 6.2 10*3/uL 4.4-11.0 [facility] Blood erythrocytes count (nu mber/volume)Ordered By: Carolyn Ruvalcaba on 11-04-2022 RBC (Bld) [#/Vol] 3.43 10*6/uL 4.2-5.4 [facility] Blood hemoglobin measurement (mass/volume)Ordered By: Carolyn Ruvalcaba on 11-04-2022 Hemoglobin (Bld) [Mass/Vol] 12.0 g/dL 12.0-15.0 [facility] Blood lymphocytes/100 leukoc ytesOrdered By: Carolyn Ruvalcaba on 11-04-2022 Lymphocytes/100 WBC (Bld) 16.8 % 19-41 [facility] Blood monocytes/100 leukocyt esOrdered By: Carolyn Ruvalcaba on 11-04-2022 Monocytes/100 WBC (Bld) 6.5 % 0-10 [facility] Blood platelet mean volumeOr dered By: Carolyn Ruvalcaba on 11-04-2022 Platelet mean volume (Bld) [Entitic vol] 10.0 fL 6.2-12.0 [facility] Determination of erythrocyte mean corpuscular volume (MCV)Ordered By: Carolyn Ruvalcaba on 11-04-2022 MCV (RBC) [Entitic vol] 110.5 fL 81-99 [facility] Hematocrit Auto (Bld) [Volum e fraction]Ordered By: Carolyn Ruvalcaba on 11-04-2022 Hematocrit (Bld) [Volume fraction] 37.9 % 37-47 [facility] Laboratory - Chemistry and C hemistry - challengeOrdered By: Carolyn Ruvalcaba on 11-04-2022 ALP [Catalytic activity/Vol] 89 U/L 45-117 [facility] ALT [Catalytic activity/Vol] 18 U/L 13-56 [facility] CO2 [Moles/Vol] 25.0 mmol/L 21.0-32.0 [facility] Globulin (S) [Mass/Vol] 4.1 g/dL 2.2-4.2 [facility] Urea nitrogen/Creatinine [Mass ratio] 14.8 mg/mg 10-20 [facility] Laboratory - Hematology and Cell countsOrdered By: Carolyn Ruvalcaba on 11-04-2022 Erythrocyte distribution width (RBC) [Entitic vol] 62.5 fL 35.1-43.9 [facility] Erythrocyte distribution width (RBC) [Ratio] 15.6 % 11.6-14.6 [facility] Immature granulocytes/100 WBC (Bld) 0.300 % 0.0-0.9 [facility] Comment on above: IG% - Immature Granu locytes (promyelocytes, myelocytes and metamyelocytes) > 1% indicates that a LEFT SHIFT is Present. MCH (RBC) [Entitic mass] 35.0 pg 27.0-32.0 [facility] Nucleated RBC/100 WBC (Bld) [Ratio] 0 % 0-5 [facility] MCHC Auto (RBC) [Mass/Vol]Or dered By: Carolyn Ruvalcaba on 11-04-2022 MCHC (RBC) [Mass/Vol] 31.7 g/dL 32-36 [facility] No Panel InformationOrdered By: Carolyn Ruvalcaba on 11-04-2022 Estimated Creatinine Clearance Calc 41.46 ml/min [facility] Estimated GFR (MDRD) Amer 73 mL/min >60 [facility] Comment on above: GFR Calc Estimated GFR (MDRD) Non-Af Amer 60 mL/min >60 [facility] Comment on above: Non- GFR Calc Platelets bldOrdered By: Nayan Ruvalcaba on 11-04-2022 Platelets (Bld) [#/Vol] 298 10*3/uL 150-450 [facility] Serum or plasma albumin niels urement (mass/volume)Ordered By: Carolyn Ruvalcaba on 11-04-2022 Albumin [Mass/Vol] 3.3 g/dL 3.2-5.0 [facility] Serum or plasma albumin/glob ulin mass ratioOrdered By: Carolyn Ruvalcaba on 11-04-2022 Albumin/Globulin [Mass ratio] 0.8 {ratio} 0.9-2.4 [facility] Serum or plasma calcium niels urement (mass/volume)Ordered By: Carolyn Ruvalcaba on 11-04-2022 Calcium [Mass/Vol] 9.2 mg/dL 8.5-10.1 [facility] Serum or plasma creatinine m easurement (mass/volume)Ordered By: Carolyn Ruvalcaba on 11-04-2022 Creatinine [Mass/Vol] 0.95 mg/dL 0.55-1.02 [facility] Comment on above: The validity of the calculated GFR & GFRAA in patients over 70 years has not been determined. Clinical correlation is essential. Serum or plasma urea nitroge n measurement (mass/volume)Ordered By: Carolyn Ruvalcaba on 11-04-2022 Urea nitrogen [Mass/Vol] 14 mg/dL 7-18 [facility] Thin prep Papanicolaou smear with manual screeningOrdered By: [facility] on 11-04-2022 Thin prep Papanicolaou smear with manual screening 19 U/L 15-37 [facility] Thin prep Papanicolaou smear with manual screening 7 5-15 [facility] Absolute lymphocyte countOrd ered By: Dago Emery on 10-10-2022 Lymphocytes Auto (Unsp spec) [#/Vol] 1.27 10*3/uL 0.83-4.51 [facility] Basophil percentageOrdered B y: Dago Emery on 10-10-2022 Basophils/100 WBC (Bld) 0.4 % 0-1 [facility] Eosinophils/100 WBC (Bld) 5.2 % 0-5 [facility] Neutrophils (Bld) [#/Vol] 3.2 10*3/uL 2.0-7.7 [facility] Neutrophils/100 WBC (Bld) 61.5 % 47-70 [facility] WBC (Bld) [#/Vol] 5.2 10*3/uL 4.4-11.0 [facility] Chloride [Moles/Vol] 109 mmol/L 98-107 [facility] Glucose [Mass/Vol] 101 mg/dL 74-106 [facility] Comment on above: Fasting Glucose resu lt from 100 to 125 mg/dL suggests IMPAIRED HOMEOSTASIS per A.D.A. criteria. Potassium [Moles/Vol] 3.9 mmol/L 3.5-5.1 [facility] Sodium [Moles/Vol] 138 mmol/L 136-145 [facility] Blood erythrocytes count (nu mber/volume)Ordered By: Dago Emery on 10-10-2022 RBC (Bld) [#/Vol] 2.93 10*6/uL 4.2-5.4 [facility] Blood hemoglobin measurement (mass/volume)Ordered By: Dago Emery on 10-10-2022 Hemoglobin (Bld) [Mass/Vol] 10.5 g/dL 12.0-15.0 [facility] Blood lymphocytes/100 leukoc ytesOrdered By: Dago Emery on 10-10-2022 Lymphocytes/100 WBC (Bld) 24.4 % 19-41 [facility] Blood monocytes/100 leukocyt esOrdered By: Dago Emery on 10-10-2022 Monocytes/100 WBC (Bld) 8.1 % 0-10 [facility] Blood platelet mean volumeOr dered By: Dago Emery on 10-10-2022 Platelet mean volume (Bld) [Entitic vol] 10.3 fL 6.2-12.0 [facility] Determination of erythrocyte mean corpuscular volume (MCV)Ordered By: Dago Emery on 10-10-2022 MCV (RBC) [Entitic vol] 109.6 fL 81-99 [facility] Hematocrit Auto (Bld) [Volum e fraction]Ordered By: Dago Emery 10-10-2022 Hematocrit (Bld) [Volume fraction] 32.1 % 37-47 [facility] Laboratory - Chemistry and C hemistry - challengeOrdered By: Dago Emery 10-10-2022 CO2 [Moles/Vol] 24.0 mmol/L 21.0-32.0 [facility] Urea nitrogen/Creatinine [Mass ratio] 24.1 mg/mg 10-20 [facility] Laboratory - Hematology and Cell countsOrdered By: Dago Emery 10-10-2022 Erythrocyte distribution width (RBC) [Entitic vol] 54.4 fL 35.1-43.9 [facility] Erythrocyte distribution width (RBC) [Ratio] 13.9 % 11.6-14.6 [facility] Immature granulocytes/100 WBC (Bld) 0.400 % 0.0-0.9 [facility] Comment on above: IG% - Immature Granu locytes (promyelocytes, myelocytes and metamyelocytes) > 1% indicates that a LEFT SHIFT is Present. MCH (RBC) [Entitic mass] 35.8 pg 27.0-32.0 [facility] Nucleated RBC/100 WBC (Bld) [Ratio] 0 % 0-5 [facility] MCHC Auto (RBC) [Mass/Vol]Or dered By: Dago Emery on 10-10-2022 MCHC (RBC) [Mass/Vol] 32.7 g/dL 32-36 [facility] No Panel InformationOrdered By: Dago Emery on 10-10-2022 Estimated Creatinine Clearance Calc 41.05 ml/min [facility] Estimated GFR (MDRD) Amer 69 mL/min >60 [facility] Comment on above: GFR Calc Estimated GFR (MDRD) Non-Af Amer 57 mL/min >60 [facility] Comment on above: Non- GFR Calc Platelets bldOrdered By: Dago Emery on 10-10-2022 Platelets (Bld) [#/Vol] 409 10*3/uL 150-450 [facility] Serum or plasma calcium niels urement (mass/volume)Ordered By: Dago Emery on 10-10-2022 Calcium [Mass/Vol] 8.7 mg/dL 8.5-10.1 [facility] Serum or plasma creatinine m easurement (mass/volume)Ordered By: Dago Emery on 10-10-2022 Creatinine [Mass/Vol] 1.00 mg/dL 0.55-1.02 [facility] Comment on above: The validity of the calculated GFR & GFRAA in patients over 70 years has not been determined. Clinical correlation is essential. Serum or plasma urea nitroge n measurement (mass/volume)Ordered By: Dago Emery on 10-10-2022 Urea nitrogen [Mass/Vol] 24 mg/dL 7-18 [facility] Thin prep Papanicolaou smear with manual screeningOrdered By: Dago Emery 10-10-2022 Thin prep Papanicolaou smear with manual screening 5 5-15 [facility] Absolute lymphocyte countOrd ered By: Dr. Pate on 08-05-2022 Lymphocytes Auto (Unsp spec) [#/Vol] 1.00 10*3/uL 0.83-4.51 [facility] Basophil percentageOrdered B y: Dr. Pate on 08-05-2022 Basophils/100 WBC (Bld) 0.6 % 0-1 [facility] Chloride [Moles/Vol] 111 mmol/L 98-107 [facility] Eosinophils/100 WBC (Bld) 2.5 % 0-5 [facility] Glucose [Mass/Vol] 116 mg/dL 74-106 [facility] Comment on above: Fasting Glucose resu lt from 100 to 125 mg/dL suggests IMPAIRED HOMEOSTASIS per A.D.A. criteria. Neutrophils (Bld) [#/Vol] 3.5 10*3/uL 2.0-7.7 [facility] Neutrophils/100 WBC (Bld) 67.0 % 47-70 [facility] Potassium [Moles/Vol] 3.9 mmol/L 3.5-5.1 [facility] Comment on above: Slight Hemolysis, Re sult may be falsely increased. Sodium [Moles/Vol] 141 mmol/L 136-145 [facility] WBC (Bld) [#/Vol] 5.3 10*3/uL 4.4-11.0 [facility] Blood erythrocytes count (nu mber/volume)Ordered By: Dr. Pate on 08-05-2022 RBC (Bld) [#/Vol] 3.36 10*6/uL 4.2-5.4 [facility] Blood hemoglobin measurement (mass/volume)Ordered By: Dr. Pate on 08-05-2022 Hemoglobin (Bld) [Mass/Vol] 12.4 g/dL 12.0-15.0 [facility] Blood lymphocytes/100 leukoc ytesOrdered By: Dr. Pate on 08-05-2022 Lymphocytes/100 WBC (Bld) 18.9 % 19-41 [facility] Blood monocytes/100 leukocyt esOrdered By: Dr. Pate on 08-05-2022 Monocytes/100 WBC (Bld) 10.2 % 0-10 [facility] Blood platelet mean volumeOr dered By: Dr. Pate on 08-05-2022 Platelet mean volume (Bld) [Entitic vol] 10.6 fL 6.2-12.0 [facility] Determination of erythrocyte mean corpuscular volume (MCV)Ordered By: Dr. Pate on 08-05-2022 MCV (RBC) [Entitic vol] 114.6 fL 81-99 [facility] Hematocrit Auto (Bld) [Volum e fraction]Ordered By: Dr. Pate on 08-05-2022 Hematocrit (Bld) [Volume fraction] 38.5 % 37-47 [facility] Laboratory - Chemistry and C hemistry - challengeOrdered By: Dr. Pate on 08-05-2022 CO2 [Moles/Vol] 24.0 mmol/L 21.0-32.0 [facility] Urea nitrogen/Creatinine [Mass ratio] 23.1 mg/mg 10-20 [facility] Laboratory - Hematology and Cell countsOrdered By: Dr. Pate on 08-05-2022 Erythrocyte distribution width (RBC) [Entitic vol] 59.2 fL 35.1-43.9 [facility] Erythrocyte distribution width (RBC) [Ratio] 14.0 % 11.6-14.6 [facility] Immature granulocytes/100 WBC (Bld) 0.800 % 0.0-0.9 [facility] Comment on above: IG% - Immature Granu locytes (promyelocytes, myelocytes and metamyelocytes) > 1% indicates that a LEFT SHIFT is Present. MCH (RBC) [Entitic mass] 36.9 pg 27.0-32.0 [facility] Nucleated RBC/100 WBC (Bld) [Ratio] 0 % 0-5 [facility] MCHC Auto (RBC) [Mass/Vol]Or dered By: Dr. Pate on 08-05-2022 MCHC (RBC) [Mass/Vol] 32.2 g/dL 32-36 [facility] No Panel InformationOrdered By: Dr. Pate on 08-05-2022 Estimated Creatinine Clearance Calc 37.88 ml/min [facility] Estimated GFR (MDRD) Amer 66 mL/min >60 [facility] Comment on above: GFR Calc Estimated GFR (MDRD) Non-Af Amer 54 mL/min >60 [facility] Comment on above: Non- GFR Calc Platelets bldOrdered By: Dr. Pate on 08-05-2022 Platelets (Bld) [#/Vol] 327 10*3/uL 150-450 [facility] Serum or plasma albumin niels urement (mass/volume)Ordered By: Dr. Pate on 08-05-2022 Albumin [Mass/Vol] 3.3 g/dL 3.2-5.0 [facility] Serum or plasma calcium niels urement (mass/volume)Ordered By: Dr. Pate on 08-05-2022 Calcium [Mass/Vol] 8.9 mg/dL 8.5-10.1 [facility] Serum or plasma creatinine m easurement (mass/volume)Ordered By: Dr. Pate on 08-05-2022 Creatinine [Mass/Vol] 1.04 mg/dL 0.55-1.02 [facility] Comment on above: The validity of the calculated GFR & GFRAA in patients over 70 years has not been determined. Clinical correlation is essential. Serum or plasma urea nitroge n measurement (mass/volume)Ordered By: Dr. Pate on 08-05-2022 Urea nitrogen [Mass/Vol] 24 mg/dL 7-18 [facility] Thin prep Papanicolaou smear with manual screeningOrdered By: Dr. Pate on 08-05-2022 Thin prep Papanicolaou smear with manual screening 6 5-15 [facility] Absolute lymphocyte countOrd ered By: Dr. Pate on 07-20-2022 Lymphocytes Auto (Unsp spec) [#/Vol] 1.03 10*3/uL 0.83-4.51 [facility] Basophil percentageOrdered B y: Dr. Pate on 07-20-2022 Basophils/100 WBC (Bld) 0.3 % 0-1 [facility] Bilirubin [Mass/Vol] 0.40 mg/dL 0.20-1.00 [facility] Comment on above: For patients on eltr ombopag therapy, use of Dim[employer] [place] TBIL is not recommended. Chloride [Moles/Vol] 107 mmol/L 98-107 [facility] Eosinophils/100 WBC (Bld) 2.4 % 0-5 [facility] Glucose [Mass/Vol] 109 mg/dL 74-106 [facility] Comment on above: Fasting Glucose resu lt from 100 to 125 mg/dL suggests IMPAIRED HOMEOSTASIS per A.D.A. criteria. Neutrophils (Bld) [#/Vol] 4.0 10*3/uL 2.0-7.7 [facility] Neutrophils/100 WBC (Bld) 68.9 % 47-70 [facility] Potassium [Moles/Vol] 4.0 mmol/L 3.5-5.1 [facility] Protein [Mass/Vol] 7.2 g/dL 6.4-8.2 [facility] Sodium [Moles/Vol] 140 mmol/L 136-145 [facility] WBC (Bld) [#/Vol] 5.8 10*3/uL 4.4-11.0 [facility] Blood erythrocytes count (nu mber/volume)Ordered By: Dr. Pate on 07-20-2022 RBC (Bld) [#/Vol] 3.25 10*6/uL 4.2-5.4 [facility] Blood hemoglobin measurement (mass/volume)Ordered By: Dr. Pate on 07-20-2022 Hemoglobin (Bld) [Mass/Vol] 12.2 g/dL 12.0-15.0 [facility] Blood lymphocytes/100 leukoc ytesOrdered By: Dr. Pate on 07-20-2022 Lymphocytes/100 WBC (Bld) 17.7 % 19-41 [facility] Blood monocytes/100 leukocyt esOrdered By: Dr. Pate on 07-20-2022 Monocytes/100 WBC (Bld) 10.2 % 0-10 [facility] Blood platelet mean volumeOr dered By: Dr. Pate on 07-20-2022 Platelet mean volume (Bld) [Entitic vol] 11.0 fL 6.2-12.0 [facility] Determination of erythrocyte mean corpuscular volume (MCV)Ordered By: Dr. Pate on 07-20-2022 MCV (RBC) [Entitic vol] 115.1 fL 81-99 [facility] Hematocrit Auto (Bld) [Volum e fraction]Ordered By: Dr. Pate on 07-20-2022 Hematocrit (Bld) [Volume fraction] 37.4 % 37-47 [facility] Laboratory - Chemistry and C hemistry - challengeOrdered By: Dr. Pate on 07-20-2022 ALP [Catalytic activity/Vol] 89 U/L 45-117 [facility] ALT [Catalytic activity/Vol] 26 U/L 13-56 [facility] CO2 [Moles/Vol] 25.0 mmol/L 21.0-32.0 [facility] Globulin (S) [Mass/Vol] 3.9 g/dL 2.2-4.2 [facility] Urea nitrogen/Creatinine [Mass ratio] 18.1 mg/mg 10-20 [facility] Laboratory - Hematology and Cell countsOrdered By: Dr. Pate on 07-20-2022 Erythrocyte distribution width (RBC) [Entitic vol] 63.6 fL 35.1-43.9 [facility] Erythrocyte distribution width (RBC) [Ratio] 15.0 % 11.6-14.6 [facility] Immature granulocytes/100 WBC (Bld) 0.500 % 0.0-0.9 [facility] Comment on above: IG% - Immature Granu locytes (promyelocytes, myelocytes and metamyelocytes) > 1% indicates that a LEFT SHIFT is Present. MCH (RBC) [Entitic mass] 37.5 pg 27.0-32.0 [facility] Nucleated RBC/100 WBC (Bld) [Ratio] 0 % 0-5 [facility] MCHC Auto (RBC) [Mass/Vol]Or dered By: Dr. Pate on 07-20-2022 MCHC (RBC) [Mass/Vol] 32.6 g/dL 32-36 [facility] No Panel InformationOrdered By: Dr. Pate on 07-20-2022 Estimated GFR (MDRD) Amer 58 mL/min >60 [facility] Comment on above: GFR Calc Estimated GFR (MDRD) Non-Af Amer 48 mL/min >60 [facility] Comment on above: Non- GFR Calc Thyroid Stimulating Hormone (TSH) 1.57 uIU/mL 0.358-3.74 [facility] Vitamin D 25-Hydroxy 32.7 ng/mL [facility] Comment on above: Vitamin D 25(OH) Sta tus Range Deficiency <20 ng/mL (50nmol/L) Insufficiency 20 - 30 ng/mL (50 - 75 nmol/L) Sufficiency 30 - 100 ng/mL (75 - 250 nmol/L) Toxicity >100 ng/mL (>250 nmol/L) Platelets bldOrdered By: Dr. Pate on 07-20-2022 Platelets (Bld) [#/Vol] 262 10*3/uL 150-450 [facility] Serum or plasma albumin niels urement (mass/volume)Ordered By: Dr. Pate on 07-20-2022 Albumin [Mass/Vol] 3.3 g/dL 3.2-5.0 [facility] Serum or plasma albumin/glob ulin mass ratioOrdered By: Dr. Pate on 07-20-2022 Albumin/Globulin [Mass ratio] 0.8 {ratio} 0.9-2.4 [facility] Serum or plasma calcium niesl urement (mass/volume)Ordered By: Dr. Pate on 07-20-2022 Calcium [Mass/Vol] 8.9 mg/dL 8.5-10.1 [facility] Serum or plasma creatinine m easurement (mass/volume)Ordered By: Dr. Pate on 07-20-2022 Creatinine [Mass/Vol] 1.16 mg/dL 0.55-1.02 [facility] Comment on above: The validity of the calculated GFR & GFRAA in patients over 70 years has not been determined. Clinical correlation is essential. Serum or plasma urea nitroge n measurement (mass/volume)Ordered By: Dr. Pate on 07-20-2022 Urea nitrogen [Mass/Vol] 21 mg/dL 7-18 [facility] Thin prep Papanicolaou smear with manual screeningOrdered By: Dr. Pate on 07-20-2022 Thin prep Papanicolaou smear with manual screening 28 U/L 15-37 [facility] Thin prep Papanicolaou smear with manual screening 8 5-15 [facility] Absolute lymphocyte countOrd ered By: Dr. Pate on 05-06-2022 Lymphocytes Auto (Unsp spec) [#/Vol] 1.13 10*3/uL 0.83-4.51 [facility] Basophil percentageOrdered B y: Dr. Pate on 05-06-2022 Basophils/100 WBC (Bld) 0.2 % 0-1 [facility] Bilirubin [Mass/Vol] 0.40 mg/dL 0.20-1.00 [facility] Comment on above: For patients on eltr ombopag therapy, use of [employer] [place] TBIL is not recommended. Chloride [Moles/Vol] 106 mmol/L 98-107 [facility] Eosinophils/100 WBC (Bld) 1.0 % 0-5 [facility] Glucose [Mass/Vol] 133 mg/dL 74-106 [facility] Comment on above: Fasting Glucose resu lt greater than or equal to 126 mg/dL suggests DIABETES MELLITUS per A.D.A. criteria. Neutrophils (Bld) [#/Vol] 2.5 10*3/uL 2.0-7.7 [facility] Neutrophils/100 WBC (Bld) 60.9 % 47-70 [facility] Potassium [Moles/Vol] 3.4 mmol/L 3.5-5.1 [facility] Protein [Mass/Vol] 7.2 g/dL 6.4-8.2 [facility] Sodium [Moles/Vol] 140 mmol/L 136-145 [facility] WBC (Bld) [#/Vol] 4.1 10*3/uL 4.4-11.0 [facility] Blood erythrocytes count (nu mber/volume)Ordered By: Dr. Pate on 05-06-2022 RBC (Bld) [#/Vol] 3.32 10*6/uL 4.2-5.4 [facility] Blood hemoglobin measurement (mass/volume)Ordered By: Dr. Pate on 05-06-2022 Hemoglobin (Bld) [Mass/Vol] 12.4 g/dL 12.0-15.0 [facility] Blood lymphocytes/100 leukoc ytesOrdered By: Dr. Pate on 05-06-2022 Lymphocytes/100 WBC (Bld) 27.5 % 19-41 [facility] Blood monocytes/100 leukocyt esOrdered By: Dr. Pate on 05-06-2022 Monocytes/100 WBC (Bld) 9.7 % 0-10 [facility] Blood platelet mean volumeOr dered By: Dr. Pate on 05-06-2022 Platelet mean volume (Bld) [Entitic vol] 10.6 fL 6.2-12.0 [facility] Determination of erythrocyte mean corpuscular volume (MCV)Ordered By: Dr. Pate on 05-06-2022 MCV (RBC) [Entitic vol] 112.0 fL 81-99 [facility] Hematocrit Auto (Bld) [Volum e fraction]Ordered By: Dr. Pate on 05-06-2022 Hematocrit (Bld) [Volume fraction] 37.2 % 37-47 [facility] Laboratory - Chemistry and C hemistry - challengeOrdered By: Dr. Pate on 05-06-2022 ALP [Catalytic activity/Vol] 75 U/L 45-117 [facility] ALT [Catalytic activity/Vol] 17 U/L 13-56 [facility] CO2 [Moles/Vol] 27.0 mmol/L 21.0-32.0 [facility] Globulin (S) [Mass/Vol] 3.8 g/dL 2.2-4.2 [facility] Urea nitrogen/Creatinine [Mass ratio] 20.2 mg/mg 10-20 [facility] Laboratory - Hematology and Cell countsOrdered By: Dr. Pate on 05-06-2022 Erythrocyte distribution width (RBC) [Entitic vol] 62.5 fL 35.1-43.9 [facility] Erythrocyte distribution width (RBC) [Ratio] 15.3 % 11.6-14.6 [facility] Immature granulocytes/100 WBC (Bld) 0.700 % 0.0-0.9 [facility] Comment on above: IG% - Immature Granu locytes (promyelocytes, myelocytes and metamyelocytes) > 1% indicates that a LEFT SHIFT is Present. MCH (RBC) [Entitic mass] 37.3 pg 27.0-32.0 [facility] Nucleated RBC/100 WBC (Bld) [Ratio] 0 % 0-5 [facility] MCHC Auto (RBC) [Mass/Vol]Or dered By: Dr. Pate on 05-06-2022 MCHC (RBC) [Mass/Vol] 33.3 g/dL 32-36 [facility] No Panel InformationOrdered By: Dr. Pate on 05-06-2022 Estimated Creatinine Clearance Calc 36.73 ml/min [facility] Estimated GFR (MDRD) Amer 62 mL/min >60 [facility] Comment on above: GFR Calc Estimated GFR (MDRD) Non-Af Amer 52 mL/min >60 [facility] Comment on above: Non- GFR Calc Platelets bldOrdered By: Dr. Pate on 05-06-2022 Platelets (Bld) [#/Vol] 239 10*3/uL 150-450 [facility] Serum or plasma albumin niels urement (mass/volume)Ordered By: Dr. Pate on 05-06-2022 Albumin [Mass/Vol] 3.4 g/dL 3.2-5.0 [facility] Serum or plasma albumin/glob ulin mass ratioOrdered By: Dr. Pate on 05-06-2022 Albumin/Globulin [Mass ratio] 0.9 {ratio} 0.9-2.4 [facility] Serum or plasma calcium niels urement (mass/volume)Ordered By: Dr. Pate on 05-06-2022 Calcium [Mass/Vol] 8.9 mg/dL 8.5-10.1 [facility] Serum or plasma creatinine m easurement (mass/volume)Ordered By: Dr. Pate on 05-06-2022 Creatinine [Mass/Vol] 1.09 mg/dL 0.55-1.02 [facility] Comment on above: The validity of the calculated GFR & GFRAA in patients over 70 years has not been determined. Clinical correlation is essential. Serum or plasma urea nitroge n measurement (mass/volume)Ordered By: Dr. Pate on 05-06-2022 Urea nitrogen [Mass/Vol] 22 mg/dL 7-18 [facility] Thin prep Papanicolaou smear with manual screeningOrdered By: Dr. Pate on 05-06-2022 Thin prep Papanicolaou smear with manual screening 22 U/L 15- [facility] Thin prep Papanicolaou smear with manual screening 7 5-15 [facility] Absolute lymphocyte countOrd ered By: Dr. Pate on 02-04-2022 Lymphocytes Auto (Unsp spec) [#/Vol] 1.02 10*3/uL 0.83-4.51 [facility] Basophil percentageOrdered B y: Dr. Pate on 02-04-2022 Basophils/100 WBC (Bld) 0.5 % 0-1 [facility] Bilirubin [Mass/Vol] 0.50 mg/dL 0.20-1.00 [facility] Comment on above: For patients on eltr ombopag therapy, use of [employer] [place] TBIL is not recommended. Chloride [Moles/Vol] 106 mmol/L 98-107 [facility] Eosinophils/100 WBC (Bld) 0.5 % 0-5 [facility] Glucose [Mass/Vol] 117 mg/dL 74-106 [facility] Comment on above: Fasting Glucose resu lt from 100 to 125 mg/dL suggests IMPAIRED HOMEOSTASIS per A.D.A. criteria. Neutrophils (Bld) [#/Vol] 2.9 10*3/uL 2.0-7.7 [facility] Neutrophils/100 WBC (Bld) 65.2 % 47-70 [facility] Potassium [Moles/Vol] 4.2 mmol/L 3.5-5.1 [facility] Comment on above: Slight Hemolysis, Re sult may be falsely increased. Protein [Mass/Vol] 7.7 g/dL 6.4-8.2 [facility] Sodium [Moles/Vol] 141 mmol/L 136-145 [facility] WBC (Bld) [#/Vol] 4.4 10*3/uL 4.4-11.0 [facility] Blood erythrocytes count (nu mber/volume)Ordered By: Dr. Pate on 02-04-2022 RBC (Bld) [#/Vol] 3.63 10*6/uL 4.2-5.4 [facility] Blood hemoglobin measurement (mass/volume)Ordered By: Dr. Pate on 02-04-2022 Hemoglobin (Bld) [Mass/Vol] 13.2 g/dL 12.0-15.0 [facility] Blood lymphocytes/100 leukoc ytesOrdered By: Dr. Pate on 02-04-2022 Lymphocytes/100 WBC (Bld) 23.3 % 19-41 [facility] Blood monocytes/100 leukocyt esOrdered By: Dr. Pate on 02-04-2022 Monocytes/100 WBC (Bld) 9.8 % 0-10 [facility] Blood platelet mean volumeOr dered By: Dr. Pate on 02-04-2022 Platelet mean volume (Bld) [Entitic vol] 10.4 fL 6.2-12.0 [facility] Determination of erythrocyte mean corpuscular volume (MCV)Ordered By: Dr. Pate on 02-04-2022 MCV (RBC) [Entitic vol] 111.0 fL 81-99 [facility] Hematocrit Auto (Bld) [Volum e fraction]Ordered By: Dr. Pate on 02-04-2022 Hematocrit (Bld) [Volume fraction] 40.3 % 37-47 [facility] Laboratory - Chemistry and C hemistry - challengeOrdered By: Dr. Pate on 02-04-2022 ALP [Catalytic activity/Vol] 82 U/L 45-117 [facility] ALT [Catalytic activity/Vol] 23 U/L 13-56 [facility] CO2 [Moles/Vol] 28.0 mmol/L 21.0-32.0 [facility] Globulin (S) [Mass/Vol] 4.3 g/dL 2.2-4.2 [facility] Urea nitrogen/Creatinine [Mass ratio] 16.0 mg/mg 10-20 [facility] Laboratory - Hematology and Cell countsOrdered By: Dr. Pate on 02-04-2022 Erythrocyte distribution width (RBC) [Entitic vol] 63.5 fL 35.1-43.9 [facility] Erythrocyte distribution width (RBC) [Ratio] 15.6 % 11.6-14.6 [facility] Immature granulocytes/100 WBC (Bld) 0.700 % 0.0-0.9 [facility] Comment on above: IG% - Immature Granu locytes (promyelocytes, myelocytes and metamyelocytes) > 1% indicates that a LEFT SHIFT is Present. MCH (RBC) [Entitic mass] 36.4 pg 27.0-32.0 [facility] Nucleated RBC/100 WBC (Bld) [Ratio] 0 % 0-5 [facility] MCHC Auto (RBC) [Mass/Vol]Or dered By: Dr. Pate on 02-04-2022 MCHC (RBC) [Mass/Vol] 32.8 g/dL 32-36 [facility] No Panel InformationOrdered By: Dr. Pate on 02-04-2022 Estimated Creatinine Clearance Calc 37.77 ml/min [facility] Estimated GFR (MDRD) Amer 64 mL/min >60 [facility] Comment on above: GFR Calc Estimated GFR (MDRD) Non-Af Amer 53 mL/min >60 [facility] Comment on above: Non- GFR Calc Platelets bldOrdered By: Dr. Pate on 02-04-2022 Platelets (Bld) [#/Vol] 300 10*3/uL 150-450 [facility] Serum or plasma albumin niels urement (mass/volume)Ordered By: Dr. Pate on 02-04-2022 Albumin [Mass/Vol] 3.4 g/dL 3.2-5.0 [facility] Serum or plasma albumin/glob ulin mass ratioOrdered By: Dr. Pate on 02-04-2022 Albumin/Globulin [Mass ratio] 0.8 {ratio} 0.9-2.4 [facility] Serum or plasma calcium niels urement (mass/volume)Ordered By: Dr. Pate on 02-04-2022 Calcium [Mass/Vol] 9.4 mg/dL 8.5-10.1 [facility] Serum or plasma creatinine m easurement (mass/volume)Ordered By: Dr. Pate on 02-04-2022 Creatinine [Mass/Vol] 1.06 mg/dL 0.55-1.02 [facility] Comment on above: The validity of the calculated GFR & GFRAA in patients over 70 years has not been determined. Clinical correlation is essential. Serum or plasma urea nitroge n measurement (mass/volume)Ordered By: Dr. Pate on 02-04-2022 Urea nitrogen [Mass/Vol] 17 mg/dL 7-18 [facility] Thin prep Papanicolaou smear with manual screeningOrdered By: Dr. Pate on 02-04-2022 Thin prep Papanicolaou smear with manual screening 25 U/L 15-37 [facility] Comment on above: Slight Hemolysis, Re sult may be falsely increased. Thin prep Papanicolaou smear with manual screening 7 5-15 [facility] Absolute lymphocyte countOrd ered By: Dr. Emery on 01-19-2022 Lymphocytes Auto (Unsp spec) [#/Vol] 1.06 10*3/uL 0.83-4.51 [facility] Basophil percentageOrdered B y: Dr. Emery on 01-19-2022 Basophils/100 WBC (Bld) 0.4 % 0-1 [facility] Bilirubin [Mass/Vol] 0.50 mg/dL 0.20-1.00 [facility] Comment on above: For patients on eltr ombopag therapy, use of [employer] [place] TBIL is not recommended. Chloride [Moles/Vol] 106 mmol/L 98-107 [facility] Eosinophils/100 WBC (Bld) 1.1 % 0-5 [facility] Glucose [Mass/Vol] 122 mg/dL 74-106 [facility] Comment on above: Fasting Glucose resu lt from 100 to 125 mg/dL suggests IMPAIRED HOMEOSTASIS per A.D.A. criteria. Neutrophils (Bld) [#/Vol] 4.0 10*3/uL 2.0-7.7 [facility] Neutrophils/100 WBC (Bld) 70.3 % 47-70 [facility] Potassium [Moles/Vol] 3.8 mmol/L 3.5-5.1 [facility] Comment on above: Slight Hemolysis, Re sult may be falsely increased. Protein [Mass/Vol] 7.3 g/dL 6.4-8.2 [facility] Sodium [Moles/Vol] 140 mmol/L 136-145 [facility] WBC (Bld) [#/Vol] 5.6 10*3/uL 4.4-11.0 [facility] Blood erythrocytes count (nu mber/volume)Ordered By: Dr. Emery on 01-19-2022 RBC (Bld) [#/Vol] 3.58 10*6/uL 4.2-5.4 [facility] Blood hemoglobin measurement (mass/volume)Ordered By: Dr. Emery on 01-19-2022 Hemoglobin (Bld) [Mass/Vol] 13.5 g/dL 12.0-15.0 [facility] Blood lymphocytes/100 leukoc ytesOrdered By: Dr. Emery on 01-19-2022 Lymphocytes/100 WBC (Bld) 18.9 % 19-41 [facility] Blood monocytes/100 leukocyt esOrdered By: Dr. Emery on 01-19-2022 Monocytes/100 WBC (Bld) 8.9 % 0-10 [facility] Blood platelet mean volumeOr dered By: Dr. Emery on 01-19-2022 Platelet mean volume (Bld) [Entitic vol] 10.4 fL 6.2-12.0 [facility] Determination of erythrocyte mean corpuscular volume (MCV)Ordered By: Dr. Emery on 01-19-2022 MCV (RBC) [Entitic vol] 110.1 fL 81-99 [facility] Hematocrit Auto (Bld) [Volum e fraction]Ordered By: Dr. Emery on 01-19-2022 Hematocrit (Bld) [Volume fraction] 39.4 % 37-47 [facility] Laboratory - Chemistry and C hemistry - challengeOrdered By: Dr. Emery on 01-19-2022 ALP [Catalytic activity/Vol] 87 U/L 45-117 [facility] ALT [Catalytic activity/Vol] 21 U/L 13-56 [facility] CO2 [Moles/Vol] 27.0 mmol/L 21.0-32.0 [facility] Globulin (S) [Mass/Vol] 4.0 g/dL 2.2-4.2 [facility] Urea nitrogen/Creatinine [Mass ratio] 16.0 mg/mg 10-20 [facility] Laboratory - Hematology and Cell countsOrdered By: Dr. Emery on 01-19-2022 Erythrocyte distribution width (RBC) [Entitic vol] 61.0 fL 35.1-43.9 [facility] Erythrocyte distribution width (RBC) [Ratio] 15.3 % 11.6-14.6 [facility] Immature granulocytes/100 WBC (Bld) 0.400 % 0.0-0.9 [facility] Comment on above: IG% - Immature Granu locytes (promyelocytes, myelocytes and metamyelocytes) > 1% indicates that a LEFT SHIFT is Present. MCH (RBC) [Entitic mass] 37.7 pg 27.0-32.0 [facility] Nucleated RBC/100 WBC (Bld) [Ratio] 0 % 0-5 [facility] MCHC Auto (RBC) [Mass/Vol]Or dered By: Dr. Emery on 01-19-2022 MCHC (RBC) [Mass/Vol] 34.3 g/dL 32-36 [facility] No Panel InformationOrdered By: Dr. Emery on 01-19-2022 Estimated GFR (MDRD) Amer 64 mL/min >60 [facility] Comment on above: GFR Calc Estimated GFR (MDRD) Non-Af Amer 53 mL/min >60 [facility] Comment on above: Non- GFR Calc Thyroid Stimulating Hormone (TSH) 1.77 uIU/mL 0.358-3.74 [facility] Vitamin D 25-Hydroxy 28.7 ng/mL [facility] Comment on above: Vitamin D 25(OH) Sta tus Range Deficiency <20 ng/mL (50nmol/L) Insufficiency 20 - 30 ng/mL (50 - 75 nmol/L) Sufficiency 30 - 100 ng/mL (75 - 250 nmol/L) Toxicity >100 ng/mL (>250 nmol/L) Platelets bldOrdered By: Dr. Emery on 01-19-2022 Platelets (Bld) [#/Vol] 258 10*3/uL 150-450 [facility] Serum or plasma albumin niels urement (mass/volume)Ordered By: Dr. Emery on 01-19-2022 Albumin [Mass/Vol] 3.3 g/dL 3.2-5.0 [facility] Serum or plasma albumin/glob ulin mass ratioOrdered By: Dr. Emery on 01-19-2022 Albumin/Globulin [Mass ratio] 0.8 {ratio} 0.9-2.4 [facility] Serum or plasma calcium niels urement (mass/volume)Ordered By: Dr. Emery on 01-19-2022 Calcium [Mass/Vol] 9.2 mg/dL 8.5-10.1 [facility] Serum or plasma creatinine m easurement (mass/volume)Ordered By: Dr. Emery on 01-19-2022 Creatinine [Mass/Vol] 1.06 mg/dL 0.55-1.02 [facility] Comment on above: The validity of the calculated GFR & GFRAA in patients over 70 years has not been determined. Clinical correlation is essential. Serum or plasma urea nitroge n measurement (mass/volume)Ordered By: Dr. Emery on 01-19-2022 Urea nitrogen [Mass/Vol] 17 mg/dL 7- [facility] Thin prep Papanicolaou smear with manual screeningOrdered By: Dr. Emery on 01-19-2022 Thin prep Papanicolaou smear with manual screening 24 U/L 15- [facility] Comment on above: Slight Hemolysis, Re sult may be falsely increased. Thin prep Papanicolaou smear with manual screening 7 - [facility] Absolute lymphocyte counton 11-04-2021 Lymphocytes Auto (Unsp spec) [#/Vol] 1.00 10*3/uL 0.83-4.51 [facility] Work Phone: Basophil percentageon 2021 Basophils/100 WBC (Bld) 0.3 % 0-1 [facility] Work Phone: Bilirubin [Mass/Vol] 0.50 mg/dL 0.20-1.00 [facility] Work Phone: Comment on above: For patients on eltr ombopag therapy, use of [employer] [place] TBIL is not recommended. Chloride [Moles/Vol] 109 mmol/L 98-107 [facility] Work Phone: Eosinophils/100 WBC (Bld) 1.0 % 0-5 [facility] Work Phone: Glucose [Mass/Vol] 126 mg/dL 74-106 [facility] Work Phone: Comment on above: Fasting Glucose resu lt greater than or equal to 126 mg/dL suggests DIABETES MELLITUS per A.D.A. criteria. Neutrophils (Bld) [#/Vol] 4.5 10*3/uL 2.0-7.7 [facility] Work Phone: Neutrophils/100 WBC (Bld) 75.0 % 47-70 [facility] Work Phone: Potassium [Moles/Vol] 3.7 mmol/L 3.5-5.1 [facility] Work Phone: Comment on above: Slight Hemolysis, Re sult may be falsely increased. Protein [Mass/Vol] 7.5 g/dL 6.4-8.2 [facility] Work Phone: Sodium [Moles/Vol] 141 mmol/L 136-145 [facility] Work Phone: WBC (Bld) [#/Vol] 6.0 10*3/uL 4.4-11.0 [facility] Work Phone: Blood erythrocytes count (nu mber/volume)on 11-04-2021 RBC (Bld) [#/Vol] 3.60 10*6/uL 4.2-5.4 [facility] Work Phone: Blood hemoglobin measurement (mass/volume)on 11-04-2021 Hemoglobin (Bld) [Mass/Vol] 13.3 g/dL 12.0-15.0 [facility] Work Phone: Blood lymphocytes/100 leukoc yteson 11-04-2021 Lymphocytes/100 WBC (Bld) 16.7 % 19-41 [facility] Work Phone: Blood monocytes/100 leukocyt eson 11-04-2021 Monocytes/100 WBC (Bld) 6.5 % 0-10 [facility] Work Phone: Blood platelet mean volumeon 11-04-2021 Platelet mean volume (Bld) [Entitic vol] 10.5 fL 6.2-12.0 [facility] Work Phone: [phone] Determination of erythrocyte mean corpuscular volume (MCV)on 11-04-2021 MCV (RBC) [Entitic vol] 111.9 fL 81-99 [facility] Work Phone: Hematocrit Auto (Bld) [Volum e fraction]on 11-04-2021 Hematocrit (Bld) [Volume fraction] 40.3 % 37-47 [facility] Work Phone: [phone] Laboratory - Chemistry and C hemistry - challengeon 11-04-2021 ALP [Catalytic activity/Vol] 82 U/L 45-117 [facility] Work Phone: ALT [Catalytic activity/Vol] 22 U/L 13-56 [facility] Work Phone: CO2 [Moles/Vol] 26.0 mmol/L 21.0-32.0 [facility] Work Phone: [phone] Globulin (S) [Mass/Vol] 4.2 g/dL 2.2-4.2 [facility] Work Phone: [phone] Urea nitrogen/Creatinine [Mass ratio] 14.0 mg/mg 10-20 [facility] Work Phone: Laboratory - Hematology and Cell countson 11-04-2021 Erythrocyte distribution width (RBC) [Entitic vol] 55.7 fL 35.1-43.9 [facility] Work Phone: [phone] Erythrocyte distribution width (RBC) [Ratio] 13.7 % 11.6-14.6 [facility] Work Phone: [phone] Immature granulocytes/100 WBC (Bld) 0.500 % 0.0-0.9 [facility] Work Phone: [phone] Comment on above: IG% - Immature Granu locytes (promyelocytes, myelocytes and metamyelocytes) > 1% indicates that a LEFT SHIFT is Present. MCH (RBC) [Entitic mass] 36.9 pg 27.0-32.0 [facility] Work Phone: [phone] Nucleated RBC/100 WBC (Bld) [Ratio] 0 % 0-5 [facility] Work Phone: [phone] MCHC Auto (RBC) [Mass/Vol]on 11-04-2021 MCHC (RBC) [Mass/Vol] 33.0 g/dL 32-36 [facility] Work Phone: No Panel Informationon 11-04 Estimated Creatinine Clearance Calc 35.12 ml/min [facility] Work Phone: Estimated GFR (MDRD) Amer 59 mL/min >60 [facility] Work Phone: Comment on above: GFR Calc Estimated GFR (MDRD) Non-Af Amer 49 mL/min >60 [facility] Work Phone: Comment on above: Non- GFR Calc Platelets bldon 11-04-2021 Platelets (Bld) [#/Vol] 290 10*3/uL 150-450 [facility] Work Phone: Serum or plasma albumin niels urement (mass/volume)on 11-04-2021 Albumin [Mass/Vol] 3.3 g/dL 3.2-5.0 [facility] Work Phone: Serum or plasma albumin/glob ulin mass ratioon 11-04-2021 Albumin/Globulin [Mass ratio] 0.8 {ratio} 0.9-2.4 [facility] Work Phone: Serum or plasma calcium niels urement (mass/volume)on 11-04-2021 Calcium [Mass/Vol] 9.3 mg/dL 8.5-10.1 [facility] Work Phone: Serum or plasma creatinine m easurement (mass/volume)on 11-04-2021 Creatinine [Mass/Vol] 1.14 mg/dL 0.55-1.02 [facility] Work Phone: Comment on above: The validity of the calculated GFR & GFRAA in patients over 70 years has not been determined. Clinical correlation is essential. Serum or plasma urea nitroge n measurement (mass/volume)on 11-04-2021 Urea nitrogen [Mass/Vol] 16 mg/dL 7-18 [facility] Work Phone: Thin prep Papanicolaou smear with manual screeningon 11-04-2021 Thin prep Papanicolaou smear with manual screening 23 U/L 15-37 [facility] Work Phone: Comment on above: Slight Hemolysis, Re sult may be falsely increased. Thin prep Papanicolaou smear with manual screening 6 5-15 [facility] Work Phone: Blood platelet adequacy dete ction by light microscopyon 11-24-2018 Platelets LM Ql (Bld) ADEQUATE ADEQ [facility] Blood platelet morphology de termination (nominal result)on 11-24-2018 Platelet morphology finding Nom (Bld) LARGE [facility] Laboratory - Hematology and Cell countson 11-24-2018 Anisocytosis Ql (Bld) 2+ [facility] Macrocytes detectionon 11-24 Macrocytes Ql (Bld) 1+ [facility] Target cell detectionon Target cells LM Ql (Bld) RARE [facility] Hypochromatic red blood cell detectionon 10-27-2018 Hypochromia Ql (Bld) 1+ [facility] No Panel Informationon 10-27 Differential Comment SCANNED [facility] Comment on above: DIMORPHIC RBC POPULA TION NOTED Review by pathologiston Pathologist review Jack (Unsp spec) [Interp] Reviewed [facility] Comment on above: Previous reported re sult: Jahaira corral Edited by: URIEL on 10/28/18:1304 AMENDED REPORT 10/28/18 1304 PATH REV previously reported as: Jahaira corral Absolute reticulocyte counto n 10-13-2018 Reticulocytes (Bld) [#/Vol] 0.00 10*3/uL 0-5 [facility] Laboratory - Hematology and Cell countson 09-29-2018 Erythrocyte distribution width (RBC) [Ratio] 24.6 % High 11.6-14.6 [facility] No Panel Informationon 09-29 Red Cell Distribution Width Diff 73.7 fl High 35.1-43.9 [facility] 24.6 % High 11.6-14.6 [facility] 73.7 fl High 35.1-43.9 [facility] Total cell counton 9 Cells counted [employer] (Bld/Tiss) [#] Not Reportable [facility] RBC morphologyon 09-21-2018 RBC morphology finding Nom (Bld) N CHROM NORMAL NORM C&C [facility] [employer] mix RAST testo n 06-27-2018 LDH [Catalytic activity/Vol] 283 U/L High 84-246 [facility] Comment on above: Slight Hemolysis, Re sult may be falsely increased. Iron measurement (mass/mass) on 06-27-2018 Iron (Unsp spec) [Mass/Mass] 54 ug/dL 50-170 [facility] Comment on above: Slight Hemolysis, Re sult may be falsely increased. JAK2 V617F mutation detectio non 06-27-2018 JAK2 gene p.[id number] [facility] Ql (Bld/Tiss) Comment High . [facility] Comment on above: Result: POSITIVE for the detection of the V617F mutation.Interpretation: The assay detected the presence of a G toT nucleotide change encoding the V617F mutation withinJAK2. Interpretation of this result should be made in thecontext of other clinical, morphologic, and cytogeneticfindings. No Panel Informationon 06-27 JAK2 Mutation Comment . [facility] Comment on above: JAK2 is a cytoplasmi c tyrosine kinase with a ferrell role insignal transduction from multiple hematopoietic growthfactor receptors. A point mutation within exon 14 of theJAK2 gene ([id number]) encoding a valine to phenylalaninesubstitution at position [...] specific to JAK2 wild type (WT) and AYK5stsztd V617F. The [employer] Absolute Quantitation softwarewill compare the patient specimen valuse to the standardcurves and generate percent values for wild type andmutant type. In vitro studies have indicated that thisassay has an analytical sensitivity of 1%.References:Matthew EJ, Jean LM, Zachary PJ, et al. Acquiredmutation of the tyrosine kinase JAK2 in humanmyeloproliferative disorders. Lancet. 2005 Jun 07;365(9538):8744-8766. Travis Santiago, Guido Haynes, Mary Rosas JP. Aunique clonal JAK2 mutation leading to constitutivesignaling causes polycythaemia vera. Nature. 2005 Jul 17;716(3223):9165-3982.Nicolas R, Bolivar F, Jolynn , et al. A gttv-ec-xcciwbhr mutation of JAK2 in myeloproliferative disorders.N Engl J Med. 2005 Jul 17; 352(25):0639-7728. Miscellaneous Test See comment [facility] Comment on above: TEST RESULT UNITS [...] was developed and its performancecharacteristics determined by [employer] ([employer]). It has not been cleared orapproved by the U.S. Food and Drug Administration. The DNAprobe vendor for this study was [employer] ([employer]).Specimen Type Comment: BLOODDirector Review: Comment: Travis Chavez, PhD, [facility] .Specimen Type Comment: BLOODCells Counted 5Cells Analyzed [...] chromosomal changes occur.Director Review: Comment:AMIE FERREIRA, PHD, [facility] TESTING PERFORMED AT THE [facility]. ORIGINAL REPORT ON FILE IN LAB CONTAINS ADDITIONAL TEST SITE INFORMATION. Total Iron Binding Capacity 289 ug/dL 250-450 [facility] 289 ug/dL 250-450 [facility] See comment [facility] Comment . [facility] Serum or plasma erythropoiet in (EPO) measurement (units/volume)on 06-27-2018 Erythropoietin (EPO) Qn 4.2 mIU/mL 2.6-18.5 [facility] Comment on above: [employer] Compare And Share UniC el DxI 800 Immunoassay SystemValues obtained with different assay methods or kits cannotbe used interchangeably. Results cannot be interpreted asabsolute evidence of the presence or absence of malignantdisease.Performed at: [facility] [id number] [place], [place] [id number] Director: Mj Coronado MD, Phone: [phone] at: [facility] [id number] [place], [place] [id number] Director: Mj Coronado MD, Phone: [phone] at: CB - [facility] [id number] [place], [place] [id number] Director: Ruddy Parks PhD, Phone: [phone] Serum or plasma ferritin hayden surement (mass/volume)on 06-27-2018 Ferritin [Mass/Vol] 561 ng/mL High 8-252 [facility] Serum or plasma iron saturat ion measurement (mass fraction)on 06-27-2018 Iron saturation [Mass fraction] 18.7 % 15.0-55.0 [facility] Serum or plasma uric acid me asurement (mass/volume)on 06-27-2018 Urate [Mass/Vol] 4.2 mg/dL 2.6-6.0 [facility] Comment on above: The drugs N-Acetylcy steine and Metamizole may falsely depress this assay. Thin prep Papanicolaou smear with manual screeningon 06-27-2018 Thin prep Papanicolaou smear with manual screening 283 U/L 84-246 [facility] Comment on above: Slight Hemolysis, Re sult may be falsely increased. Vital Signs Date Time Vital Sign Value Performing Clinician Faci lity 01-05-2025 09:23-0400 Body height 165.[address] Dago Emery MD Work Phone: [facility] 11-28-2024 08:58-0400 Diastolic blood pressure 56 mm[Hg] Dr. Dago Emery MD Work Phone: [facility] 11-28-2024 08:58-0400 Systolic blood pressure 119 mm[Hg] Dr. Dago Emery MD Work Phone: [facility] 11-28-2024 08:04-0400 Body temperature 98.1 [degF] Dr. Dago Emery MD Work Phone: [facility] 11-28-2024 08:04-0400 Heart rate 69 /min Dr. Dago Emery MD Work Phone: [facility] 11-28-2024 08:04-0400 Respiratory rate 16 /min Dr. Dago Emery MD Work Phone: [facility] 11-28-2024 08:04-0400 SaO2% (BldA) [Mass fraction] 93 % Dr. Dago Emery MD Work Phone: 8(676)718-738866 [place] [address] 11-22-2024 14:50-0400 Body height 165.[address] Dago Emery MD Work Phone: 6(992)729-126166 [place] [address] 11-22-2024 14:50-0400 Body weight 85.[address] Dago Emery MD Work Phone: 3(943)459-138066 [place] [address] 11-21-2024 14:00-0400 Body mass index (BMI) [Ratio] 31.4 kg/m2 Dr. Dago Emery MD Work Phone: 0(116)060-307566 [place] [address] 11-01-2024 16:35-0400 Diastolic blood pressure 71 mm[Hg] Dr. Dago Emery MD Work Phone: 7(532)802-887566 [place] [address] 11-01-2024 16:35-0400 Heart rate 64 /min Dr. Dago Emery MD Work Phone: 3(403)453-020866 [place] [address] 11-01-2024 16:35-0400 Respiratory rate 16 /min Dr. Dago Emery MD Work Phone: 1(460)814-144066 [place] [address] 11-01-2024 16:35-0400 SaO2% (BldA) [Mass fraction] 96 % Dr. Dago Emery MD Work Phone: 3(604)180-352066 [place] [address] 11-01-2024 16:35-0400 Systolic blood pressure 163 mm[Hg] Dr. Dago Emery MD Work Phone: 7(977)494-548666 [place] [address] 11-01-2024 16:20-0400 Body temperature 98.5 [degF] Dr. Dago Emery MD Work Phone: 7(300)803-541466 [place] [address] 11-01-2024 15:07-0400 Body height 165.[address] Dago Emery MD Work Phone: 1(448)802-830566 [place] [address] 11-01-2024 15:07-0400 Body mass index (BMI) [Ratio] 32.5 kg/m2 Dr. Dago Emery MD Work Phone: 0(219)903-792466 [place] [address] 11-01-2024 15:07-0400 Body weight 88.[address] Dago Emery MD Work Phone: 1(932)899-778041 [place] [address] 11-01-2024 14:26-0400 Body mass index (BMI) [Ratio] 32.8 kg/m2 Dr. Dago Emery MD Work Phone: 7(354)828-281441 [place] [address] 11-01-2024 14:26-0400 Body temperature 97.7 [degF] Dr. Dago Emery MD Work Phone: 6(370)457-525766 [place] [address] 11-01-2024 14:26-0400 Body weight 89.[address] Dago Emery MD Work Phone: 5(039)100-797466 [place] [address] 11-01-2024 14:26-0400 Diastolic blood pressure 68 mm[Hg] Dr. Dago Emery MD Work Phone: 5(798)759-570566 [place] [address] 11-01-2024 14:26-0400 Heart rate 67 /min Dr. Dago Emery MD Work Phone: 6(700)049-302566 [place] [address] 11-01-2024 14:26-0400 Respiratory rate 19 /min Dr. Dago Emery MD Work Phone: 2(120)997-287866 [place] [address] 11-01-2024 14:26-0400 SaO2% (BldA) [Mass fraction] 96 % Dr. Dago Emery MD Work Phone: 9(075)198-154966 [place] [address] 11-01-2024 14:26-0400 Systolic blood pressure 153 mm[Hg] Dr. Dago Emery MD Work Phone: 8(423)342-192941 [place] [address] 10-21-2024 13:13-0400 Body temperature 98.3 [degF] Dr. Dago Emery MD Work Phone: 0(791)106-292941 [place] [address] 10-21-2024 13:13-0400 Diastolic blood pressure 67 mm[Hg] Dr. Dago Emery MD Work Phone: 7(462)440-974041 [place] [address] 10-21-2024 13:13-0400 Heart rate 62 /min Dr. Dago Emery MD Work Phone: 7(973)935-675741 [place] [address] 10-21-2024 13:13-0400 Respiratory rate 18 /min Dr. Dago Emery MD Work Phone: 6(456)333-361880 [address] 10-21-2024 13:13-0400 SaO2% (BldA) [Mass fraction] 95 % Dr. Dago Emery MD Work Phone: 7(721)697-468666 [place] [address] 10-21-2024 13:13-0400 Systolic blood pressure 129 mm[Hg] Dr. Dago Emery MD Work Phone: 2(913)458-769166 [place] [address] 10-16-2024 22:13-0400 Inhaled oxygen flow rate 2 L/min Dr. Dago Emery MD Work Phone: 6(687)389-390166 [place] [address] 10-16-2024 20:13-0400 Body height 165.[address] Dago Emery MD Work Phone: 9(857)230-711666 [place] [address] 10-16-2024 20:13-0400 Body mass index (BMI) [Ratio] 31.1 kg/m2 Dr. Dago Emery MD Work Phone: 7(579)105-850466 [place] [address] 10-16-2024 20:13-0400 Body weight [address] Dago Emery MD Work Phone: 4(101)195-060066 [place] [address] 10-11-2024 15:05-0400 Body height 165.[address] Dago Emery MD Work Phone: 9(494)305-828266 [place] [address] 10-11-2024 15:05-0400 Body temperature 98.2 [degF] Dr. Dago Emery MD Work Phone: 9(384)297-303866 [place] [address] 10-11-2024 15:05-0400 Diastolic blood pressure 73 mm[Hg] Dr. Dago Emery MD Work Phone: 9(733)851-418066 [place] [address] 10-11-2024 15:05-0400 Heart rate 52 /min Dr. Dago Emery MD Work Phone: 5(136)011-473466 [place] [address] 10-11-2024 15:05-0400 Respiratory rate 16 /min Dr. Dago Emery MD Work Phone: 2(795)606-029666 [place] [address] 10-11-2024 15:05-0400 SaO2% (BldA) [Mass fraction] 98 % Dr. Dago Emery MD Work Phone: 2(918)343-504341 [place] [address] 10-11-2024 15:05-0400 Systolic blood pressure 169 mm[Hg] Dr. Dago Emery MD Work Phone: 5(863)728-489666 [place] [address] 09-20-2024 14:30-0400 Body height 165.[address] Dago Emery MD Work Phone: 7(343)135-402266 [place] [address] 09-20-2024 14:30-0400 Body mass index (BMI) [Ratio] 32.4 kg/m2 Dr. Dago Emery MD Work Phone: 8(757)361-228966 [place] [address] 09-20-2024 14:30-0400 Body weight 88.[address] Dago Emery MD Work Phone: 5(175)706-125166 [place] [address] 09-20-2024 14:30-0400 Diastolic blood pressure 73 mm[Hg] Dr. Dago Emery MD Work Phone: 7(830)558-260866 [place] [address] 09-20-2024 14:30-0400 Heart rate 56 /min Dr. Dago Emery MD Work Phone: 0(422)960-168966 [place] [address] 09-20-2024 14:30-0400 Respiratory rate 18 /min Dr. Dago Emery MD Work Phone: 1(370)845-272366 [place] [address] 09-20-2024 14:30-0400 SaO2% (BldA) [Mass fraction] 95 % Dr. Dago Emery MD Work Phone: 4(399)668-032666 [place] [address] 09-20-2024 14:30-0400 Systolic blood pressure 124 mm[Hg] Dr. Dago Emery MD Work Phone: 9(384)785-837066 [place] [address] 07-10-2024 13:45-0400 Body height 165.[address] Dago Emery MD Work Phone: 3(323)006-029166 [place] [address] 07-10-2024 13:45-0400 Body temperature 97.8 [degF] Dr. Dago Emery MD Work Phone: 6(636)404-185766 [place] [address] 07-10-2024 13:45-0400 Diastolic blood pressure 66 mm[Hg] Dr. Dago Emery MD Work Phone: [facility] 07-10-2024 13:45-0400 Heart rate 46 /min Dr. Dago Emery MD Work Phone: [facility] 07-10-2024 13:45-0400 Respiratory rate 16 /min Dr. Dago Emery MD Work Phone: [facility] 07-10-2024 13:45-0400 SaO2% (BldA) [Mass fraction] 98 % Dr. Dago Emery MD Work Phone: [facility] 07-10-2024 13:45-0400 Systolic blood pressure 104 mm[Hg] Dr. Dago Emery MD Work Phone: 5(234)301-015341 [place] [address] 02-22-2024 14:10-0500 Body weight 88.[address] Dago Emery MD Work Phone: 1(878)688-913880 [address] 11-04-2022 14:40-0400 Body height 165.[address] Dago Emery Work Phone: 7(956)302-426841 [place] [address] 11-04-2022 14:40-0400 Body mass index (BMI) [Ratio] 34.2 kg/m2 Dr. Dago Emery Work Phone: 7(237)556-266341 [place] [address] 11-04-2022 14:40-0400 Body temperature 98 [degF] Dr. Dago Emery Work Phone: 0(006)603-661841 [place] [address] 11-04-2022 14:40-0400 Body weight 93.[address] Dago Emery Work Phone: [facility] 11-04-2022 14:40-0400 Diastolic blood pressure 74 mm[Hg] Dr. Dago Emery Work Phone: 9(731)048-476941 [place] [address] 11-04-2022 14:40-0400 Heart rate 51 /min Dr. Dago Emery Work Phone: [facility] 11-04-2022 14:40-0400 Respiratory rate 16 /min Dr. Dago Emery Work Phone: [facility] 11-04-2022 14:40-0400 SaO2% (BldA) [Mass fraction] 98 % Dr. Dago Emery Work Phone: 5(978)252-175441 [place] [address] 11-04-2022 14:40-0400 Systolic blood pressure 140 mm[Hg] Dr. Dago Emery Work Phone: 1(770)077-764141 [place] [address] 10-14-2022 12:50-0400 Body temperature 97.6 [degF] Dr. Dago Emery Work Phone: 8(827)843-471766 [place] [address] 10-14-2022 12:50-0400 Diastolic blood pressure 47 mm[Hg] Dr. Dago Emery Work Phone: 5(100)190-957766 [place] [address] 10-14-2022 12:50-0400 Heart rate 70 /min Dr. Dago Emery Work Phone: 9(353)723-276466 [place] [address] 10-14-2022 12:50-0400 Respiratory rate 18 /min Dr. Dago Emery Work Phone: 3(295)886-040966 [place] [address] 10-14-2022 12:50-0400 SaO2% (BldA) [Mass fraction] 94 % Dr. Dago Emery Work Phone: 6(056)483-620566 [place] [address] 10-14-2022 12:50-0400 Systolic blood pressure 141 mm[Hg] Dr. Dago Emery Work Phone: 2(093)951-039366 [place] [address] 10-13-2022 09:00-0400 Body mass index (BMI) [Ratio] 34.4 kg/m2 Dr. Dago Emery Work Phone: 1(025)340-874766 [place] [address] 10-13-2022 09:00-0400 Body weight 93.[address] Dago Emery Work Phone: 9(627)553-195066 [place] [address] 08-05-2022 13:49-0400 Body height 165.[address] Dago Emery Work Phone: 1(898)105-496041 [place] [address] 08-05-2022 13:49-0400 Body mass index (BMI) [Ratio] 34.2 kg/m2 Dr. Dago Emery Work Phone: 3(815)989-964641 [place] [address] 08-05-2022 13:49-0400 Body temperature 98.3 [degF] Dr. Dago Emery Work Phone: 9(852)157-204241 [place] [address] 08-05-2022 13:49-0400 Body weight 93.[address] Dago Emery Work Phone: [facility] 08-05-2022 13:49-0400 Diastolic blood pressure 83 mm[Hg] Dr. Dago Emery Work Phone: 1(127)363-753241 [place] [address] 08-05-2022 13:49-0400 Heart rate 45 /min Dr. Dago Emery Work Phone: 7(591)170-456941 [place] [address] 08-05-2022 13:49-0400 Respiratory rate 18 /min Dr. Dago Emery Work Phone: 4(147)048-042841 [place] [address] 08-05-2022 13:49-0400 SaO2% (BldA) [Mass fraction] 99 % Dr. Dago Emery Work Phone: 9(757)586-037841 [place] [address] 08-05-2022 13:49-0400 Systolic blood pressure 137 mm[Hg] Dr. Dago Emery Work Phone: 1(674)514-694280 [address] 05-06-2022 14:19-0500 Body height 165.[address] Dago Emery Work Phone: 5(642)064-500641 [place] [address] 05-06-2022 14:19-0500 Body mass index (BMI) [Ratio] 35.5 kg/m2 Dr. Dago Emery Work Phone: 9(625)445-218941 [place] [address] 05-06-2022 14:19-0500 Body temperature 98.3 [degF] Dr. Dago Emery Work Phone: 6(979)968-045441 [place] [address] 05-06-2022 14:19-0500 Body weight 96.[address] Dago Emery Work Phone: 6(340)157-823941 [place] [address] 05-06-2022 14:19-0500 Diastolic blood pressure 72 mm[Hg] Dr. Dago Emery Work Phone: 4(933)322-608041 [place] [address] 05-06-2022 14:19-0500 Heart rate 46 /min Dr. Dago Emery Work Phone: [facility] 05-06-2022 14:19-0500 Respiratory rate 18 /min Dr. Dago Emery Work Phone: 5(286)632-004041 [place] [address] 05-06-2022 14:19-0500 SaO2% (BldA) [Mass fraction] 98 % Dr. Dago Emery Work Phone: 4(011)197-612441 [place] [address] 05-06-2022 14:19-0500 Systolic blood pressure 121 mm[Hg] Dr. Dago Emery Work Phone: 7(246)573-112141 [place] [address] 04-12-2022 08:38-0500 Diastolic blood pressure 94 mm[Hg] Dr. Dago Emery Work Phone: 3(433)289-931266 [place] [address] 04-12-2022 08:38-0500 Heart rate 60 /min Dr. Dago Emery Work Phone: 9(227)302-499966 [place] [address] 04-12-2022 08:38-0500 Respiratory rate 16 /min Dr. Dago Emery Work Phone: 6(754)786-818866 [place] [address] 04-12-2022 08:38-0500 SaO2% (BldA) [Mass fraction] 96 % Dr. Dago Emery Work Phone: 9(667)458-541366 [place] [address] 04-12-2022 08:38-0500 Systolic blood pressure 178 mm[Hg] Dr. Dago Emery Work Phone: 7(928)089-306566 [place] [address] 04-12-2022 08:33-0500 Body height 165.[address] Dago Emery Work Phone: 4(149)890-489666 [place] [address] 04-12-2022 08:33-0500 Body mass index (BMI) [Ratio] 36.3 kg/m2 Dr. Dago Emery Work Phone: 9(429)193-511466 [place] [address] 04-12-2022 08:33-0500 Body temperature 98.5 [degF] Dr. Dago Emery Work Phone: 1(326)245-350866 [place] [address] 04-12-2022 08:33-0500 Body weight 99.[address] Dago Emery Work Phone: 0(379)257-353766 [place] [address] 02-04-2022 14:20-0500 Body mass index (BMI) [Ratio] 34.4 kg/m2 Dr. Dago Emery Work Phone: [facility] 02-04-2022 14:20-0500 Body temperature 97.8 [degF] Dr. Dago Emery Work Phone: [facility] 02-04-2022 14:20-0500 Body weight 93.[address] Dago Emery Work Phone: [facility] 02-04-2022 14:20-0500 Diastolic blood pressure 79 mm[Hg] Dr. Dago Emery Work Phone: [facility] 02-04-2022 14:20-0500 Heart rate 51 /min Dr. Dago Emery Work Phone: [facility] 02-04-2022 14:20-0500 Respiratory rate 16 /min Dr. Dago Emery Work Phone: [facility] 02-04-2022 14:20-0500 SaO2% (BldA) [Mass fraction] 97 % Dr. Dago Emery Work Phone: [facility] 02-04-2022 14:20-0500 Systolic blood pressure 132 mm[Hg] Dr. Dago Emery Work Phone: [facility] 11-04-2021 13:59-0400 Body height 165.[address] Dago Emery Work Phone: [facility] Work Phone: 11-04-2021 13:59-0400 Body mass index (BMI) [Ratio] 34.4 kg/m2 Dr. Dago Emery Work Phone: [facility] Work Phone: 11-04-2021 13:59-0400 Body temperature 97.4 [degF] Dr. Dago Emery Work Phone: [facility] Work Phone: 11-04-2021 13:59-0400 Body weight [address] Dago Emery Work Phone: [facility] Work Phone: 11-04-2021 13:59-0400 Diastolic blood pressure 80 mm[Hg] Dr. Dago Emery Work Phone: [facility] Work Phone: 11-04-2021 13:59-0400 Heart rate 51 /min Dr. Dago Emery Work Phone: [facility] Work Phone: 11-04-2021 13:59-0400 Respiratory rate 16 /min Dr. Dago Emery Work Phone: [facility] Work Phone: 11-04-2021 13:59-0400 SaO2% (BldA) [Mass fraction] 97 % Dr. Dago Emery Work Phone: [facility] Work Phone: 11-04-2021 13:59-0400 Systolic blood pressure 130 mm[Hg] Dr. Dago Emery Work Phone: [facility] Work Phone: 04-25-2020 14:46-0500 Body mass index (BMI) [Ratio] 37.8 kg/m2 Dr. Dago Emery Work Phone: [facility] 04-25-2020 14:46-0500 Body temperature 98 [degF] Dr. Dago Emery Work Phone: [facility] [facility] 04-25-2020 14:46-0500 Body weight 99.[address] Dago Emery Work Phone: [facility] 04-25-2020 14:46-0500 Diastolic blood pressure 87 mm[Hg] Dr. Dago Emery Work Phone: [facility] 04-25-2020 14:46-0500 Heart rate 54 /min Dr. aDgo Emery Work Phone: [facility] 04-25-2020 14:46-0500 Respiratory rate 17 /min Dr. Dago Emery Work Phone: [facility] 04-25-2020 14:46-0500 SaO2% (BldA) [Mass fraction] 97 % Dr. Dago Emery Work Phone: [facility] 04-25-2020 14:46-0500 Systolic blood pressure 155 mm[Hg] Dr. Dago Emery Work Phone: [facility] Encounters Encounter Date Encounter Type Care Provider Facility Start: 01-31-2025 ambulatory [facility] Facility:[facility] Start: 01-24-2025 End: 01-24-2025 [facility] Start: 01-17-2025 End: 01-17-2025 ambulatory [facility] Facility[facility] Start: 01-10-2025 ambulatory Efewongbe Oleghe OLS Fa cility:[facility] Start: 01-03-2025 ambulatory Efewongbe Oleghe OLS Fa cility:[facility] Start: 01-03-2025 Irvin Reeves Start: 12-28-2024 ambulatory Efewongbe Oleghe OLS Fa cility:[facility] Start: 12-28-2024 Irvin Reeves Start: 12-20-2024 ambulatory Efewongbe Oleghe OLS Fa cility:[facility] Start: 12-20-2024 Irvin Reeves Start: 12-13-2024 End: 12-13-[address] aDgo Emery MD Work Phone: -[facility] Start: 12-13-2024 End: 12-13-2024 Fouzia HAINES -[facility] Work Phone: Start: 12-13-2024 ambulatory Efewongbe Oleghe OLS Fa cility:[facility] Start: 12-13-2024 Irvin Reeves Start: 12-08-2024 ambulatory Efewongbe Oleghe OLS Fa cility:[facility] Start: 12-08-2024 Irvin Reeves Start: 12-06-2024 ambulatory Irvin SARABIA Grisel cility:[facility] Start: 12-06-2024 Irvin Reeves Start: 12-05-2024 End: 12-05-[address] Dago Emery MD Work Phone: [facility] Start: 12-05-2024 End: 12-05-2024 [facility] Work Phone: Start: 11-30-2024 End: 11-30-[address] Dago Emery MD Work Phone: [facility] Start: 11-30-2024 End: 11-30-2024 [facility] Work Phone: Start: 11-29-2024 Irvin Reeves Start: 11-28-2024 End: 11-29-[address] Dago Emery MD Work Phone: [facility] Start: 11-28-2024 End: 11-28-2024 Dr. Irvin Mckenna MD [facility] Work Phone: Start: 11-01-2024 Non-patient / Non-visit Pio Ortiz nd DO -[facility] Start: 11-01-2024 End: 11-01-2024 Admission to same day surgery center Pio Friend DO -Endoscopy Work Phone: Start: 11-01-2024 End: 11-01-2024 Pio Friend DO -Endoscopy Work Phone: Start: 11-01-2024 End: 11-01-[address] Dago Emery MD Work Phone: -Endoscopy Start: 10-31-2024 Non-patient / Non-visit Pio Ortiz nd DO -[facility] Start: 10-31-2024 Pio Webb DO -[facility] Start: 10-21-2024 ambulatory Pio Webb Facility [facility] Start: 10-21-2024 End: 11-28-2024 Evaluation and management of inpatient Dr. Dago Emery MD -Transitional Care Unit Start: 10-21-2024 End: 11-28-2024 Dr. Dago Emery MD -Transitional Care Unit Start: 10-20-2024 Non-patient / Non-visit Dr. Sofia giang MD -[facility] Work Phone: Start: 10-20-2024 Dr. Sofia Carvajal MD [facility] Work Phone: Start: 10-18-2024 ambulatory Saulo Bullock [facility] Start: 10-18-2024 End: 10-21-2024 Evaluation and management of inpatient Dr. Geo Rodriguez MD -[facility] 3 Work Phone: Start: 10-18-2024 End: 10-21-2024 Dr. Geo Rodriguez MD -[facility] 3 Work Phone: Start: 10-18-2024 Non-patient / Non-visit Dr. Joselin Valente MD [facility] Work Phone: Start: 10-18-2024 Dr. See Valente MD [facility] Work Phone: Start: 10-17-2024 Non-patient / Non-visit Dr. Joselin Valente MD [facility] Work Phone: Start: 10-17-2024 Dr. See Valente MD [facility] Work Phone: Start: 10-16-2024 Non-patient / Non-visit Dr. Foley [facility] Work Phone: Start: 10-16-2024 Dr. Saulo Bullock [facility] Work Phone: Start: 10-16-2024 ambulatory Saulo Reyes ility:[facility] Start: 10-11-[address] Cira Pate MD -[facility] Start: 10-11-2024 End: 10-11-2024 Patient encounter procedure Carolyn Peg [facility] Work Phone: Start: 10-11-2024 End: 10-11-[address] [facility] Work Phone: Start: 10-11-2024 End: 10-11-[address] Dago Emery MD Work Phone: [facility] Start: 09-20-2024 End: 09-20-[address] Omero Armas MD -[facility] Work Phone: Start: 09-20-2024 End: 09-20-[address] Omero Armas MD [facility] Start: 09-20-2024 End: 09-20-[address] Omero Armas MD [facility] Start: 09-20-2024 End: 09-20-2024 Dr. Omero Armas MD -[facility] Work Phone: Start: 09-20-2024 End: 09-20-[address] Dago Emery MD Work Phone: [facility] Start: 08-08-2024 [facility] Start: 08-01-2024 End: 08-01-2024 Non-patient / Non-visit Dr. Omero Armas MD -[facility] Work Phone: Start: 08-01-2024 End: 08-01-[address] Dago Emery MD Work Phone: [facility] Work Phone: Start: 08-01-2024 End: 08-01-[address] Dago Emery MD -Pulmonary Services/Neurology Work Phone: Start: 07-31-2024 End: 08-01-[address] Dago Emery MD Work Phone: [facility] Work Phone: Start: 07-31-2024 End: 07-31-[address] Dago Emery MD -[facility] Start: 07-31-2024 End: 07-31-2024 ambulatory [facility] Facility:[facility] Start: 07-10-[address] Cira Pate MD -[facility] Start: 07-10-2024 End: 07-10-2024 Patient encounter procedure Carolyn Ruvalcaba NP-C -[facility] Work Phone: Start: 07-10-2024 End: 07-10-2024 ambulatory [facility] Start: 02-22-2024 End: 02-22-2024 ambulatory [facility] Start: 01-25-2023 End: 01-25-[address] Dago Emery Work Phone: [facility] Work Phone: Start: 01-25-2023 End: 01-25-[address] Dago Emery Work Phone: [facility]-Laboratory, Phy Office 3rd Flr Start: 11-04-[address] Dago hays Work Phone: [facility] Start: 11-04-2022 End: 11-04-[address] Dago Emery Work Phone: [facility] Work Phone: Start: 09-25-2022 End: 10-14-2022 Evaluation and management of inpatient Dr. Dago Emery Work Phone: [facility]-Transitional Care Unit Start: 09-04-2022 End: 09-04-[address] Dago Emery Work Phone: [facility] Work Phone: Start: 09-04-2022 End: 09-04-[address] Dago Emery Work Phone: [facility] Start: 08-05-2022 End: 08-05-[address] Dago Emery Work Phone: [facility] Start: 08-05-[address] Dago hays Work Phone: [facility] Start: 07-20-2022 End: 07-20-[address] Dago Emery Work Phone: [facility] Work Phone: Start: 07-20-2022 End: 07-20-[address] Dago Emery Work Phone: [facility] Office [address] [place] [address] Start: 05-06-[address] Dago hays Work Phone: [facility] Start: 05-06-2022 End: 05-06-[address] Dago Emery Work Phone: [facility] Start: 04-12-2022 End: 04-12-2022 Emergency department patient visit Dr. Dago Emery Work Phone: [facility]-Emergency Department Start: 02-04-[address] Dago hays Work Phone: [facility] Start: 02-04-2022 End: 02-04-[address] Dago Emery Work Phone: [facility] Start: 01-19-2022 End: 01-19-[address] Dago Emery Work Phone: [facility] Work Phone: Start: 01-19-2022 End: 01-19-[address] Dago Emery Work Phone: [facility]-Laboratory, Phy Office 3rd Flr Start: 11-04-[address] Dago hays Work Phone: [facility] Start: 11-04-2021 End: 11-04-[address] Dago Emery Work Phone: [facility] Procedures Date Procedure Procedure Detail [...] Nucleated red blood cell count procedure Dr. aDgo Emery MD Work Phone: Start: 12-13-2024 Platelet [...] Phone: Start: 10-21-[address] Dago Eemry MD Work Phone: Start: 10-21-2024 Nucleated red [...] knee, one or two views Dr. Dago Emeyr MD Work Phone: Start: 10-16-2024 Fluoroscopic guidance [...] Reeves Start: 11-28-2024 Development of care plan [facility] Start: 11-28-2024 Patient discharge [facility] Start: 11-21-2024 [facility] Start: 11-17-2024 Developing a treatment plan [facility] Start: 11-14-2024 Speech therapy management [facility] Start: 11-03-2024 Elevation of affected extremity [facility] Start: 11-01-2024 Endoscopy upper small intestine w/biopsy [facility] Start: 11-01-2024 Patient discharge [facility] Start: 10-31-2024 Speech therapy assessment [facility] Start: 10-31-2024 Referral to gastroenterology service [facility] Start: 10-30-2024 Verification routine [facility] Start: 10-25-2024 [facility] Start: 10-22-2024 Developing a treatment plan [facility] Start: 10-21-2024 Chemotherapy care management [facility] Start: 10-21-2024 Wound care [facility] Start: 10-21-2024 Recommendation to continue with treatment [facility] Start: 10-21-2024 Admission procedure [facility] Start: 10-21-2024 Introduction of urinary catheter [facility] Start: 10-21-2024 Measuring intake and output [facility] Start: 10-21-2024 Patient referral to dietitian [facility] Start: 10-21-2024 Referral for physical therapy [facility] Start: 10-21-2024 Referral to occupational therapist [facility] Start: 10-21-2024 Referral to service [facility] Start: 10-21-2024 Vital signs measurements [facility] Start: 10-21-2024 End: 10-21-2024 [facility] Start: 10-21-2024 Patient discharge [facility] Start: 10-18-2024 Admission procedure [facility] Start: 10-18-2024 Care regimes management [facility] Start: 10-17-2024 [facility] Start: 10-16-2024 Application of intermittent pneumatic compression device [facility] Start: 10-16-2024 Following clinical pathway protocol [facility] Start: 10-16-2024 Provision of overbed trapeze [facility] Start: 10-16-2024 Ambulation therapy management [facility] Start: 10-16-2024 Assessment of risk of venous thromboembolism [facility] Start: 10-16-2024 Catheterization of vein [facility] Start: 10-16-2024 Exercises [facility] Start: 10-16-2024 Neurovascular assessment [facility] Start: 10-16-2024 Procedure discontinued [facility] Start: 10-16-2024 Recommendation to continue with treatment [facility] Start: 10-16-2024 Referral for physical therapy [facility] Start: 10-16-2024 Referral to occupational therapist [facility] Start: 10-16-2024 Referral to service [facility] Start: 10-16-2024 Vital signs measurements [facility] Start: 10-16-2024 End: 10-16-2024 [facility] Start: 10-16-2024 Application of device [facility] Start: 10-16-2024 Application of elastic bandage [facility] Start: 10-16-2024 Introduction of urinary catheter [facility] Start: 10-16-2024 Measuring intake and output [facility] Start: 10-16-2024 Patient education [facility] Start: 10-16-2024 Provision of activity privileges [facility] Start: 10-16-2024 Wound care [facility] Start: 10-16-2024 Admission procedure [facility] Start: 10-16-2024 Consultation [facility] Start: 10-11-2024 CBC W Auto Differential panel - Blood [facility] Start: 10-11-2024 [facility] Start: 07-31-2024 Electrocardiographic procedure [facility] Start: 10-14-2022 Patient discharge [facility] Start: 10-13-2022 Development of care plan [facility] Start: 10-09-2022 Referral to service [facility] Start: 10-09-2022 [facility] Start: 10-04-2022 [facility] Start: 10-04-2022 [facility] Start: 09-26-2022 Developing a treatment plan [facility] Start: 09-26-2022 Development of care plan [facility] Start: 09-26-2022 Application of device [facility] Start: 09-25-2022 Wound care [facility] Start: 09-25-2022 Admission procedure [facility] Start: 09-25-2022 Measuring intake and output [facility] Start: 09-25-2022 Patient referral to dietitian [facility] Start: 09-25-2022 Referral to occupational therapist [facility] Start: 09-25-2022 Referral to service [facility] Start: 09-25-2022 Vital signs measurements [facility] Start: 09-25-2022 End: 09-25-2022 [facility] Start: 07-21-2018 [facility] Anion gap in Serum or Plasma [facility] Anion gap in Serum or Plasma [facility] Anion gap in Serum or Plasma [facility] Anion gap in Serum or Plasma [facility] Anion gap in Serum or Plasma [facility] Basic metabolic 2008 panel with ionized calcium - Serum or Plasma [facility] BUN/Creatinine ratio [facility] BUN/Creatinine ratio [facility] BUN/Creatinine ratio [facility] BUN/Creatinine ratio [facility] BUN/Creatinine ratio [facility] Calcium [Mass/volume ] in Serum or Plasma [facility] Calcium [Mass/volume ] in Serum or Plasma [facility] Calcium [Mass/volume ] in Serum or Plasma [facility] Calcium [Mass/volume ] in Serum or Plasma [facility] Calcium [Mass/volume ] in Serum or Plasma [facility] Carbon dioxide, tota l [Moles/volume] in Central venous blood [facility] Carbon dioxide, tota l [Moles/volume] in Central venous blood [facility] Carbon dioxide, tota l [Moles/volume] in Central venous blood [facility] Carbon dioxide, tota l [Moles/volume] in Central venous blood [facility] Carbon dioxide, tota l [Moles/volume] in Central venous blood [facility] CBC W Auto Different ial panel - Blood [facility] Work Phone: CBC W Auto Different ial panel - Blood [facility] CBC W Auto Different ial panel - Blood [facility] CBC W Auto Different ial panel - Blood [facility] CBC W Auto Different ial panel - Blood [facility] CBC W Auto Different ial panel - Blood [facility] CBC W Auto Different ial panel - Blood [facility] Comprehensive metabo lic 1999 panel - Serum or Plasma [facility] Comprehensive metabo lic 2000 panel - Serum or Plasma [facility] Creatinine [Mass/vol ume] in Serum or Plasma [facility] Creatinine [Mass/vol ume] in Serum or Plasma [facility] Creatinine [Mass/vol ume] in Serum or Plasma [facility] Creatinine [Mass/vol ume] in Serum or Plasma [facility] Creatinine [Mass/vol ume] in Serum or Plasma [facility] Erythrocyte mean cor puscular volume determination [facility] Erythrocyte mean cor puscular volume determination [facility] Erythrocyte mean cor puscular volume determination [facility] Erythrocyte mean cor puscular volume determination [facility] Erythrocyte mean cor puscular volume determination [facility] Glucose [Mass/volume ] in Serum or Plasma [facility] Glucose [Mass/volume ] in Serum or Plasma [facility] Glucose [Mass/volume ] in Serum or Plasma [facility] Glucose [Mass/volume ] in Serum or Plasma [facility] Glucose [Mass/volume ] in Serum or Plasma [facility] Hematocrit [Volume F raction] of Blood [facility] Hematocrit [Volume F raction] of Blood [facility] Hematocrit [Volume F raction] of Blood [facility] Hematocrit [Volume F raction] of Blood [facility] Hematocrit [Volume F raction] of Blood [facility] Hemoglobin [Mass/vol ume] in Blood [facility] Hemoglobin [Mass/vol ume] in Blood [facility] Hemoglobin [Mass/vol ume] in Blood [facility] Hemoglobin [Mass/vol ume] in Blood [facility] Hemoglobin [Mass/vol ume] in Blood [facility] Leukocytes [#/volume] in Blood [facility] Leukocytes [#/volume] in Blood [facility] Leukocytes [#/volume] in Blood [facility] Leukocytes [#/volume] in Blood [facility] Leukocytes [#/volume] in Blood [facility] Mean corpuscular hem oglobin concentration determination [facility] Mean corpuscular hem oglobin concentration determination [facility] Mean corpuscular hem oglobin concentration determination [facility] Mean corpuscular hem oglobin concentration determination [facility] Mean corpuscular hem oglobin concentration determination [facility] Mean corpuscular hem oglobin determination [facility] Mean corpuscular hem oglobin determination [facility] Mean corpuscular hem oglobin determination [facility] Mean corpuscular hem oglobin determination [facility] Mean corpuscular hem oglobin determination [facility] Measurement of renal function [facility] Measurement of renal function [facility] Measurement of renal function [facility] Measurement of renal function [facility] Measurement of renal function [facility] Neutrophil count [facility] Neutrophil count [facility] Neutrophil count [facility] Neutrophil count [facility] Neutrophil count [facility] Neutrophil percent d ifferential count [facility] Neutrophil percent d ifferential count [facility] Neutrophil percent d ifferential count [facility] Neutrophil percent d ifferential count [facility] Neutrophil percent d ifferential count [facility] Patient Education ED [facility] In [facility] Work Phone: Patient referral [facility] Work Phone: Platelets [#/volume] in Blood [facility] Platelets [#/volume] in Blood [facility] Platelets [#/volume] in Blood [facility] Platelets [#/volume] in Blood [facility] Platelets [#/volume] in Blood [facility] Potassium measurement [facility] Potassium measurement [facility] Potassium measurement [facility] Potassium measurement [facility] Potassium measurement [facility] Red blood cell count [facility] Red blood cell count [facility] Red blood cell count [facility] Red blood cell count [facility] Red blood cell count [facility] Red cell distributio n width determination [facility] Red cell distributio n width determination [facility] Red cell distributio n width determination [facility] Red cell distributio n width determination [facility] Red cell distributio n width determination [facility] Serum chloride measurement [facility] Serum chloride measurement [facility] [facility] Serum chloride measurement [facility] Serum chloride measurement [facility] Serum chloride measurement [facility] Sodium measurement [facility] Sodium measurement [facility] Sodium measurement [facility] Sodium measurement [facility] Sodium measurement [facility] Urea nitrogen [Mass/ volume] in Serum or Plasma [facility] Urea nitrogen [Mass/ volume] in Serum or Plasma [facility] Urea nitrogen [Mass/ volume] in Serum or Plasma [facility] Urea nitrogen [Mass/ volume] in Serum or Plasma [facility] Urea nitrogen [Mass/ volume] in Serum or Plasma [facility] Immunizations Immunization Date Immunization Notes Care Provider Fa cility 11-23-2020 Covid (Moderna) Dr. Dago Emery Work Phone: [facility] 10-26-2020 Covid (TrueLens) Dr. Dago Emery Work Phone: [facility] 01-16-2020 influenza, injectabl e, quadrivalent, preservative free Dr. Dago Emery Work Phone: [facility] 11-23-[address] Dago Emery Work Phone: [facility] 09-07-[address] Dago Emery Work Phone: [facility] 01-12-2019 influenza, injectabl e, quadrivalent, preservative free Dr. Dago Emery Work Phone: [facility] 12-20-2008 pneumococcal vaccine , unspecified formulation Dr. Dago Emery Work Phone: [facility] 07-21-2008 pneumococcal polysaccharide vaccine, [address] Dago Emery Work Phone: [facility] Payers Date Payer Category Payer Self-pay [id number] 2018 Medicare [id number] 2018 Private Health Insurance [id number] Unknown [employer] [id number] Unknown [id number] 2.16.840.1.974596.3.579.2.462 Unknown [id number] 2.16.840.1.344733.3.579.2.462 Unknown [id number] 2.16.840.1.948295.3.579.2.462 Unknown [id number] 2.16.840.1.477694.3.579.2.462 Unknown [id number] 2.16.840.1.644673.3.579.2.462 Unknown [id number] 2.16.840.1.000806.3.579.2.462 Unknown [id number] 2.16.840.1.850034.3.579.2.462 Unknown [id number] 2.16.840.1.603728.3.579.2.462 Unknown [id number] 2.16.840.1.798708.3.579.2.462 Unknown [id number] 2.16.840.1.805360.3.579.2.462 Unknown [id number] 2.16.840.1.752968.3.579.2.462 Unknown [id number] 2.16.840.1.015823.3.579.2.462 Unknown [id number] 2.16.840.1.840253.3.579.2.462 Unknown [id number] 2.16.840.1.371161.3.579.2.462 Unknown [id number] 2.16.840.1.243224.3.579.2.462 Unknown [id number] 2.16.840.1.754500.3.579.2.462 Unknown [id number] 2.16.840.1.197161.3.579.2.462 Unknown [id number] 2.16.840.1.608102.3.579.2.462 Unknown [id number] 2.16.840.1.724749.3.579.2.462 Unknown [id number] 2.16.840.1.913195.3.579.2.462 Unknown [id number] 2.16.840.1.040596.3.579.2.462 Unknown [id number] 2.16.840.1.571854.3.579.2.462 Unknown [id number] 2.16.840.1.405230.3.579.2.462 Unknown [id number] 2.16.840.1.317335.3.579.2.462 Unknown [id number] 2.16.840.1.751786.3.579.2.462 Unknown [id number] 2.16.840.1.776786.3.579.2.462 Unknown [id number] 2.16840.1.212557.3.579.2.462 Unknown [id number] 2.16.840.1.661587.3.579.2.462 Unknown [id number] 2.16840.1.599665.3.579.2.462 Unknown [id number] 2.16.840.1.890426.3.579.2.462 Unknown [id number] 2.16840.1.519947.3.579.2.462 Unknown [id number] 2.16840.1.124230.3.579.2.462 Unknown [id number] 2.16840.1.558868.3.579.2.462 Unknown [id number] 2.16840.1.259203.3.579.2.462 Unknown [id number] 2.16840.1.349195.3.579.2.462 Social History Date Type Detail Facility Start: 07-24-2020 End: 09-25-2022 Tobacco smoking status MIIS Unknown if ever smoked [facility] Start: 04-16-2014 None [facility] Start: 12-02-2018 Non-smoker [facility] Start: 1945 Sex Assigned At Female [facility] Start: 07-31-2024 End: 01-05-2025 Tobacco smoking status NHIS Never smoked tobacco (finding) [facility] Not [facility] Medical Equipment Procedure Code Equipment Code Equipment Origin al Text Equipment Identifier Dates ([id number]) ()[id number] 7)[id number])[id number] FDA Start: 09-23-2022 ([id number]) ()[id number] 944(1 7)375834(10)[id number] FDA Start: 09-23-2022 ([id number]) ()[id number] 491(1 7)[id number])[id number] FDA Start: 09-23-2022 ([id number]) ()[id number] 150(1 7)568035(10)[id number] FDA Start: 09-23-2022 (412356833) [id number] 054(1 7)[id number] FDA Start: 10-16-2024 ()[id number] 691(1 7)[id number](10)[id number] FDA Start: 10-16-2024 (245316534) ()[id number] 793(1 7)[id number])[id number] FDA Start: 10-16-2024 (922497072) ()[id number] 061(1 7)[id number](10)[id number] FDA Start: 10-16-2024 (449391261) ()[id number] 702(1 7)[id number])[id number] FDA Start: 10-16-2024 (962800003) ()[id number] 702(1 7)[id number](10)[id number] FDA Start: 10-16-2024 (852634353) ()[id number] 664(1 7)059380(10)[id number] FDA Start: 10-16-2024 ([id number] 889(9 3)[id number])[id number] FDA Start: 10-16-2024 Goals Date Patient Goal Desired Activity /State Functional Status Date Assessment Result Facility 11-28-2024 Functional status Chair [facility] Work Phone: 11-27-2024 Functional status Standard Walker [facility] Work Phone: 11-01-2024 Functional status Bedrest [facility] Work Phone: 10-31-2024 Functional status Standard Walker [facility] Work Phone: 10-21-2024 Functional status Stand and pivot [facility] Work Phone: 10-14-2022 Functional status Activity Ability Indepe ndent [facility] Work Phone: 10-13-2022 Functional status [facility]ulates;[facility]: 10-12-2022 Functional status Tolerates Activity Well [facility] Work Phone: Mental Status Date Assessment Result Facility 11-28-2024 Cognitive function Voice/Name [facility] Work Phone: 11-18-2024 [facility]: 11-01-2024 Cognitive function Voice/Name [facility] Work Phone: 10-31-2024 Cognitive function Appropriate;Cooperativ e [facility] Work Phone: 10-21-2024 Cognitive function Voice/Name [facility] Work Phone: 10-14-2022 Cognitive function Voice/Name [facility] Work Phone: 10-07-2022 Cognitive function Appropriate [facility] Work Phone: Clinical Notes 07-10-2024 to 11-24-2024 Note Date & Type Note Facility 11-24-2024 Discharge summary Note Date/Time November 24, 2024 2:01pm [facility] Medical Records Department [address] [place] [address] Discharge Summary 11/24/24 1351 MR#: [id number] Acct: [id number] Name: BERNICE HASSAN Rep #:[id number] : 1945 79 From: Dago Emery MD PCP: Dr. Dago Emery MD Status:ADM I N Location: [place] [address] Providers Date of Admission: 10/21/24 Primary Care [...] BID for 1 month. Discharge 11/28/2024 to [facility], [facility], private pay, part B therapies. Physical [...] % (Auto) 64.5, Lymph % (Auto) 27.0, Geary % (Auto) 5.3, Eos % (Auto) 2.2, [...] instructions: No Additional Instructions: Discharge 11/28/2024 to [facility], intermediate, private pay, part B therapies. Please Follow Up With: JOEY POTTS (ORTHO) When: As scheduled. Meaningful Use Info Meaningful Use Meaningful Use Diagnoses (Choose all that apply): None applicable Discharge Plan Admission Admit Date/Time: 10/21/24 14:09 Primary Reason for Your Visit: Debility. Attending Provider: Dago Emery Chi Primary Care Provider: Dago Emery Chi Instructions Additional Instructions / Restrictions: Discharge 11/28/2024 to [facility], intermediate, private pay, part B therapies. Discharge [...] Care 11/24/24 1401 <Electronically signed by Dago Emeyr MD> Cosigner Signature (if applicable): CC: Dr. Dago Emery MD~ Signed [facility] Work Phone: 1(628) 671-160509-05-2025 Discharge summary Author Dago Rupert [facility] Note Date/Time November 24, 2024 2:01pm [facility] Medical Records Department [address] [place] [address] Transfer to [facility] Care MR#: [id number] Acct: [id number] Name: BERNICE HASSAN Rep #:[id number] : 1945 79 From: Dago Emery MD [...] SERVICES PRIOR TO HIS/HER TRANSFER TO [facility]. 11/24/24 1401<Electronically signed by Dago Emery MD> [...] Additional Instructions / Restrictions: Discharge 11/28/2024 to [facility], [facility], private pay, part B therapies. Discharge [...] applicable): CC: Dr. Dago Emery MD ~ [facility] Work Phone: 1(600) 639-956809-05-2025 Discharge summary [facility] Medical Records Department [address] [place] [address] Discharge Summary 11/24/24 1351 MR#: [id number] Acct: [id number] Name: BERNICE HASSAN Rep #:[id number] : 1945 79 From: Dago Emery MD PCP: Dr. Dago Emery MD Status:ADM I N Location: [place] [address] Providers Date of Admission: 10/21/24 Primary Care Physician: Dr. Dago Emery MD Consultations 10/31/24 07:27 Consult: Gastroenterology Routine Consulting Provider: [facility] Reason for Consult: Anemia, +Hemoccult. EMERGENT [...] BID for 1 month. Discharge 11/28/2024 to [facility], [facility], private pay, part B therapies. Physical [...] % (Auto) 64.5, Lymph % (Auto) 27.0, Geary % (Auto) 5.3, Eos % (Auto) 2.2, [...] instructions: No Additional Instructions: Discharge 11/28/2024 to [facility], intermediate, private pay, part B therapies. Please Follow Up With: JOEY POTTS (ORTHO) When: As scheduled. Meaningful Use Info Meaningful Use Meaningful Use Diagnoses (Choose all that apply): None applicable Discharge Plan Admission Admit Date/Time: 10/21/24 14:09 Primary Reason for Your Visit: Debility. Attending Provider: Dago Emery Chi Primary Care Provider: Dago Emery Chi Instructions Additional Instructions / Restrictions: Discharge 11/28/2024 to [facility], intermediate, private pay, part B therapies. Discharge [...] applicable): CC: Dr. Dago Emery MD~ Signed [facility]09-05-2025 Discharge summary [facility] Medical Records Department [address] [place] [address] Transfer to [facility] MR#: [id number] Acct: [id number] Name: BERNICE HASSAN Rep #:[id number] : 1945 79 From: Dago Emery MD [...] SERVICES PRIOR TO HIS/HER TRANSFER TO [facility]. 11/24/24 1401 Diet Diet Order/Speech Therapy: INPATIENT [...] Additional Instructions / Restrictions: Discharge 11/28/2024 to [facility], [facility], private pay, part B therapies. Discharge [...] applicable): CC: Dr. Dago Emery MD ~ [facility]09-05-[address] [facility]08-25-2025 Progress note Author Dago Emery [facility] Note Date/Time November 13, 2024 7: 55pm [facility] Medical Records Department [address] [place] [address] Progress Note - [facility]CU 11/13/241948 MR#: [id number] Acct: [id number] Name: BERNICE HASSAN Rep #:[id number] : 1945 79 From: Dago Emery MD PCP: Dr. Dago Emery MD Status:ADM I N Location: [place] [address] Subjective Subjective Patient seen, examined for regulatory visit. She has no new complaints. She issitting in recliner with her left leg elevated. She appears bored. She is resigned to going to [facility] once insurances cuts her. 11/01/2024 Friend [...] Cosigner Signature (if applicable): CC: ~ Signed [facility] Work Phone: 1(879) 387-735408-25-2025 Progress note [facility] Medical Records Department [address] [place] [address] Progress [address] - [facility] 11/13/241948 MR#: [id number] Acct: [id number] Name: BERNICE HASSAN Rep #:[id number] : 1945 79 From: Dago Emery MD PCP: Dr. Dago Emery MD Status:ADM I N Location: [place] [address] Subjective Subjective Patient seen, examined for regulatory visit. She has no new complaints. She issitting in recliner with her left leg elevated. She appears bored. She is resigned to going to [facility] once insurances cuts her. 11/01/2024 [...] Cosigner Signature (if applicable): CC: ~ Signed [facility]08-15-2025 Radiology Diagnostic study note [facility] Imaging Services [address] [place] [address] Ankle min 3 Views MR#: [id number] Acct: [id number] Name: HASSANBERNICE K Rep #: [id number] : 1945 F 79 From: Lynda Batres MD PCP: Dr. Dago Emery MD Status: ADM I N Study:Ankle min 3 Views Date of Exam: Exam# [id number] Ordering Dr: Grayson Rodriguez MD PROCEDURE: ANKLE [...] fracture deformity of distal fibula. Reading Location: [facility] CC: Dr. Geo Rodriguez MD; Dr. Dago Emery MD ~ Supervisor Contact Lens: Signed [facility]08-13-2025 Consult note [facility] Medical Records Department [address] [place] [address] Anesthesia Postop Eval II 11/01/24 1633 MR#: [id number] Acct: [id number] Name: BERNICE HASSAN Rep #:[id number] : 1945 79 From: Dinorah Headley ADVERTISING OPERATIONS MANAGER PCP: Dr. Dago Emery MD Status:REG S DC Y Race: C Location: [address] Anesthesia Postop Eval I Sum Postop Eval Completion status Anesthesia document: Postop Eval 1 completed: Yes Anesthesia Postop Eval I Summary Anesthesia Postop Eval I Summary: Anesthesia Postop Eval I: Assessment Summary Airway patent Yes 11/01/24 16:13 ADVERTISING OPERATIONS MANAGER.JBLOU Spontaneous unlabored Yes 11/01/24 16:13 ADVERTISING OPERATIONS MANAGER.JBLOU respirations Mental status Awake,Calm 11/01/24 16:13 ADVERTISING OPERATIONS MANAGER.JBLOU nausea No 11/01/24 16:13 ADVERTISING OPERATIONS MANAGER.JBLOU Vomiting No 11/01/24 16:13 ADVERTISING OPERATIONS MANAGER.JBLOU Anesthesia Postop Eval I: Fluid Summary Crystalloid volume administer 200 11/01/24 16:13 ADVERTISING OPERATIONS MANAGER.JBLOU (ml) Colloids volume administered ( ml) Blood Product volume administered (ml) Total IV fluid infused 200 11/01/24 16:13 ADVERTISING OPERATIONS MANAGER.JBLOU Anesthesia Postop Eval I: Summary Notes Anesthesia Complication No 11/01/24 16:13 ADVERTISING OPERATIONS MANAGER.JBLOU Anesthesia Complication Comment: Post-operative progress note Anesthesia: Postop Eval II Evaluation Mental status: Awake Pain Level: 0 nausea: No Vomiting: No 11/01/24 1633 a ADVERTISING OPERATIONS MANAGER> Date _ Dinorah Headley ADVERTISING OPERATIONS MANAGER Cosigner Signature: Date CC: ~ Signed [facility]08-13-2025 Procedure note [facility] Medical Records Department [address] [place] [address] [place] [address] EGD Report MR#: [id number] Acct: [id number] Name: BERNICE HASSAN Rep #:[id number] : 1945 79 From: Pio Webb DO [...] present medications. Procedure Code(s): --- Professional --- 08489, Small intestinal endoscopy, enteroscopy beyond second portion of duodenum, not including ileum; with biopsy, single or multiple CPT copyright 2021 [employer]. All rights reserved. The codes documented in this report are preliminary and upon farmer tree fruit and nut crops review may be revised to meet current compliance requirements. Pio Webb DO 11/01/2024 4:13:52 PM This report has been signed electronically. Number of Addenda: 0 Note Initiated On: 11/01/2024 3:55 PM 11/01/24 1614 Date _ Pio Webb DO Cosigner Signature: Date (if indicated) CC: Dr. Dago Emery MD; Pio Webb DO ~ Date Dictated: 11/01/24 1720 Date Transcribed: Supervisor Contact Lens: GOKUL Signed [facility]08-13-2025 Procedure note [facility] Medical Records Department [address] [place] [address] Provation Physician Letter MR#: [id number] Acct: [id number] Name: BERNICE HASSAN Rep #:[id number] : 1945 79 From: Pio Webb DO PCP: Dr. Dago Emery MD Status:REG S DC 11/01/2024 Dago Emery MD [address] [place] [address] Re : Upper GI endoscopy procedure for [...] Pio Webb DO ~ Date Dictated: 11/01/24 2059 Date Transcribed: Supervisor Contact Lens: RF Signed [facility]08-13-2025 Consult note [facility] Medical Records Department [address] [place] [address] Anesthesia Postop Eval I 11/01/24 1613 MR#: [id number] Acct: [id number] Name: BERNICE HASSAN Rep #:[id number] : 1945 79 From: Franklyn CHAMBERS PCP: Dr. Dago Emery MD Status:REG S DC Y Race: C Location: [address] Anesthesia: Postop Eval I Current Vital [...] Postop Eval 1 completed: Yes 11/01/24 161 ADVERTISING OPERATIONS MANAGER> Date _ Franklyn Lopez ADVERTISING OPERATIONS MANAGER Cosigner Signature: Date CC: ~ Signed [facility]08-13-2025 Consult note [facility] Medical Records Department [address] [place] [address] Pre-Anesthesia Evaluation 11/01/24 1539 MR#: [id number] Acct: [id number] Name: BERNICE HASSAN Rep #:[id number] : 1945 79 From: Avery Crocker PCP: Dr. Dago Emery MD Status:REG S DC Y Race: C Location: [address] ASA Classification* ASA Classification ASA Classification: [...] Procedure(s): EGD Anesthesia History Anesthesia History - cooker syrup: Anesthesia History - cooker syrup Hx Hospitalization Yes 11/01/24 15:07 Any Problems [...] take am of surgery PONV PONV - cooker syrup: PONV - cooker syrup Female Yes 11/01/24 15:07 HX of Motion [...] 11/01/24 15:07 Respiratory Assessment Respiratory Assessment - cooker syrup: Respiratory Tract Infection Hx - cooker syrup Hx Respiratory Tract Infection No 11/01/24 15:07 STOP Sleep Apnea STOP Sleep Apnea - cooker syrup: STOP Sleep Apnea - cooker syrup Hx Hypertension Yes 11/01/24 15:07 Hx Sleep [...] Tobacco Use History Tobacco Use History - cooker syrup: Tobacco Use History - cooker syrup Tobacco Use Smoking Status Never smoker 11/01/24 15:07 Hx Tobacco Use No 11/01/24 15:07 Years Smoking Packs Smoked per Day Smoking Cessation Date was within the last 15 years Hx Smoking Cessation Date Hx Smoking Cessation Counseling Hematologic Medial History Hematologic Hx - cooker syrup: Hematologic Medical Hx - mix mill tender Hx of Blood Transfusion No 11/01/24 15:07 [...] confused, unrespo /Reproduction History /Reproductive History - cooker syrup: /Reproductive Hx- cooker syrup Hx Now Gestational Age (in weeks): EDC: [...] Social History household members: none [facility] Smoking Status: Never smoker second hand exposure: No alcohol intake: never substance use type: does not use justice/oriental orthodox: Anglican seatbelt use: always do you feel safe at home: Yes Review of Systems (Anesthesia) ROS Narrative System reviewed and no additional complaints, except as documented. 11/01/24 1603 MD> Date _ Avery Rod MD Cosigner Signature: Date CC: ~ Signed [facility]08-13-2025 History and physical note [facility] Medical Records Department [address] [place] [address] History & Physical Exam 11/01/24 1523 MR#: [id number] Acct: [id number] Name: BERNICE HASSAN Rep #:[id number] : 1945 79 From: Pio Friend DO PCP: Dr. Dago Emery MD Status:REG S DC Location: [place] [address] HPI - General General Date of Admission: [...] part of recently but thelast 5 years. [facility] Medical History Cardiology follow-up encounter Wears [...] never substance use type: does not use justice/oriental orthodox: Anglican seatbelt use: always do you feel safe [...] Dago Emery MD; Pio Webb DO~ Signed [facility]08-13-20[facility] Consult note Author Pio Webb [facility] Note Date/Time October 31, 2024 9: 58am [facility] Medical Records Department [address] [place] [address] Consultation - GI 10/31/24 0951 MR#: [id number] Acct: [id number] Name: BERNICE HASSAN Rep #:[id number] : 1945 79 From: Pio Webb DO PCP: Dr. Dago Emery MD Status:ADM I N Location: [place] [address] HPI Consult Data Date of Consult: 10/31/24 [...] part of recently but thelast 5 years. [facility] Medical History Cardiology follow-up encounter Wears [...] Social History household members: none [facility] Smoking Status: Never smoker second hand exposure: No alcohol intake: never substance use type: does not use justice/oriental orthodox: Anglican seatbelt use: always do you feel safe [...] ASA 3. Charges/Coding Visit Charges Inpatient E&M: 94428 SNF Init L2 10/31/24 0958 <Electronically signed by Pio Webb DO> Cosigner Signature (if applicable): CC: Dr. Dago Emery MD~ Signed [facility] Work Phone: 1(691) 533-864408-12-2025 Radiology Diagnostic study note [facility] Imaging Services [address] [place] [address] Ankle min 3 Views MR#: [id number] Acct: [id number] Name: BERNICE HASSAN Rep #: [id number] : 1945 F 79 From: Kaushik Bacon MD PCP: Dr. Dago Emery MD Status: ADM I N Study:Ankle min 3 Views Date of Exam: Exam# [id number] Ordering Dr: Dago Emery MD PROCEDURE: ANKLE [...] to prior. Likely subacute injury Reading Location: [facility] CC: Dr. Dago Emery MD ~ Supervisor Contact Lens: Signed [facility]08-12-2025 Radiology Diagnostic study note [facility] Imaging Services [address] [place] [address] Knee 1 or 2 Views MR#: [id number] Acct: [id number] Name: BERNICE HASSAN Rep #: [id number] : 1945 F 79 From: Antnoio Caballero MD PCP: Dr. 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 There isgood alignment. 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 There is good alignment. Reading Location: [place] [address] CC: Dr. Dago Emery MD ~ Supervisor Contact Lens: Signed [facility]08-12-2025 Consult note [facility] Medical Records Department [address] [place] [address] Consultation - GI 10/31/24 0951 MR#: [id number] Acct: [id number] Name: BERNIEC HASSAN Rep #:[id number] : 1945 79 From: Pioleoncio Webb DO PCP: Dr. Dago Emery MD Status:ADM I N Location: [facility] TC5 HPI Consult Data Date of [...] part of recently but thelast 5 years. [facility] Medical History Cardiology follow-up encounter Wears [...] Social History household members: none [facility] Smoking Status: Never smoker second hand exposure: No alcohol intake: never substance use type: does not use justice/oriental orthodox: Anglican seatbelt use: always do you feel safe [...] ASA 3. Charges/Coding Visit Charges Inpatient E&M: 20341 SNF Init L2 10/31/24 0958 Cosigner Signature (if applicable): CC: Dr. Dago Emery MD~ Signed [facility]08-05-2025 History and physical note Author Dago Rupert [facility] Note Date/Time October 24, 2024 5:2 8pm [facility] Medical Records Department [address] [place] [address] History & Physical Exam 10/21/24 1747 MR#: [id number] Acct: [id number] Name: BERNICE HASSAN Rep #:[id number] : 1945 79 From: Dago Emery MD PCP: Dr. Dago Emery MD Status:ADM I N Location: [place] [address] HPI - General General Date of Admission: 10/21/24 Date of Service: 10/23/24 Chief Complaint: Here for rehabilitation. HPI Narrative BERNICE HASSAN, is a 79 Female who presents with followin10/16/2024 Admit [facility]. 10/16/2024 Dr. Rodriguez performed left total knee [...] rehabilitation, strengthening, prior to discharge home alone. [facility] Medical History (Updated 10/21/24 @ 17:54 [...] never substance use type: does not use justice/oriental orthodox: Anglican seatbelt use: always do you feel safe [...] cc: Dr. Dago Emery MD ~* Signed [facility] Work Phone: 1(547) 331-695508-05-2025 History and physical note [facility] Medical Records Department [address] [place] [address] History & Physical Exam 10/21/24 1747 MR#: [id number] Acct: [id number] Name: BERNICE HASSAN Rep #:[id number] : 1945 79 From: Dago Emery MD PCP: Dr. Dago Emery MD Status:ADM I N Location: [facility] TCU15-1 HPI - General General Date of Admission: 10/21/24 Date of Service: 10/23/24 Chief Complaint: Here for rehabilitation. HPI Narrative BERNICE HASSAN, is a 79 Female who presents with followin10/16/2024 Admit [facility]. 10/16/2024 Dr. Rodriguez performed left total knee [...] rehabilitation, strengthening, prior to discharge home alone. [facility] Medical History (Updated 10/21/24 @ 17:54 [...] Social History household members: none [facility] Smoking Status: Never smoker second hand exposure: No alcohol intake: never substance use type: does not use justice/oriental orthodox: Anglican seatbelt use: always do you feel safe [...] cc: Dr. Dago Emery MD ~* Signed [facility]08-04-2025 Progress note Author Freddie Cameron [facility] Note Date/Time October 23, 2024 3:1 4pm [facility] Medical Records Department [address] [place] [address] Progress Note - Pharmacy 10/23/24 1439 MR#: [id number] Acct: [id number] Name: BERNICE HASSAN Rep #:[id number] : 1945 79 From: Freddie Cameron PCP: Dr. Dago Emery MD Status:ADM I N Location: [place] [address]- Documented by User: Freddie Cameron 10/23/24 14:58 [...] 50 Mg Tablet PO 50 mg DAILY@0800 [facility] Administration Protocol Cholecalciferol 25 mcg 10/22/24 10:00 [...] 325 Mg Tablet PO Not Given 1200,1700 [facility] Folic Acid 1 mg 10/22/24 08:00 10/23/24 09:34 Folic Acid 1 Mg Tablet PO 1 mg BREAKFAST [facility] Administration Hydroxyurea 1,000 mg 10/23/24 10:00 10/23/24 09:35 Hydroxyurea 500 Mg Capsule PO 1,000 mg MoTuThFrSa@1000 [facility] Administration Levothyroxine Sodium 50 mcg 10/22/24 06:00 10/23/24 05:44 Levothyroxine 50 Mcg Tablet PO 50 mcg DAILY@0600 [facility] Administration Losartan Potassium 100 mg 10/22/24 10:00 10/23/24 09:34 Losartan Potassium 100 Mg Tablet PO 100 mg DAILY [facility] Administration Protocol Magnesium Citrate 300 ml 10/21/24 [...] Sodium 1 Tablet PO 2 tablet BID [facility] Administration Tuberculin PPD 0.1 ml 10/29/24 10:00 [...] Comments to Recommendations by Pharmacy Agree 10/23/24 1453 <Electronically signed by Freddie Cameron> Freddie aCmeron Cosigner Signature (if applicable): 10/23/24 1514 <Electronically signed by Dago Emery MD> CC: ~ Signed [facility] Work Phone: 1(495) 402-210608-04-2025 Progress note [facility] Medical Records Department [address] [place] [address] Progress Note - Pharmacy 10/23/24 1439 MR#: [id number] Acct: [id number] Name: BERNICE HASSAN Rep #:[id number] : 1945 79 From: Freddie Cameron PCP: Dr. Dago Emery MD Status:ADM I N Location: [place] [address] Documented by User: Freddie Cameron 10/23/24 14:58 [...] 500 Mg Tablet PO 500 mg Q8 [facility] Administration Amlodipine Besylate 5 mg 10/22/24 10:00 10/23/24 09:35 Amlodipine 5 Mg Tablet PO 5 mg DAILY [facility] Administration Protocol Aspirin 81 mg 10/21/24 17:00 10/23/24 09:34 Aspirin 81 Mg Tab.Chew PO 11/18/24 17:01 81 mg BIDCM [facility] Administration Atenolol 50 mg 10/22/24 08:00 10/23/24 09:34 Atenolol 50 Mg Tablet PO 50 mg DAILY@0800 [facility] Administration Protocol Cholecalciferol 25 mcg 10/22/24 10:00 10/23/24 09:36 Cholecalciferol (Vit D3) 25 Mcg Tablet (1,000 Units) PO 25 mcg DAILY [facility] Administration Doxycycline Monohydrate 100 mg 10/21/24 22:00 10/23/24 09:35 Doxycycline 100 Mg Capsule PO 10/30/24 22:01 100 mg BID [facility] Administration Famotidine 20 mg 10/22/24 10:00 10/23/24 09:35 Famotidine 20 Mg Tablet PO 20 mg DAILY [facility] Administration Ferrous Sulfate 325 mg 10/21/24 17:00 10/22/24 16:36 Ferrous Sulfate 325 Mg Tablet PO Not Given 1200,1700 [facility] Folic Acid 1 mg 10/22/24 08:00 10/23/24 09:34 Folic Acid 1 Mg Tablet PO 1 mg BREAKFAST [facility] Administration Hydroxyurea 1,000 mg 10/23/24 10:00 10/23/24 09:35 Hydroxyurea 500 Mg Capsule PO 1,000 mg MoTuThFrSa@1000 [facility] Administration Levothyroxine Sodium 50 mcg 10/22/24 06:00 [...] 1458 Freddie Germain Signature (if applicable): 10/23/24 9503 CC: ~ Signed [facility]08-02-2025 [facility] Discharge summary Author Nela Rodrigo [facility] Note Date/Time October 21, 2024 11: 05am [facility] Medical Records Department [address] [place] [address] Discharge Summary 10/21/24 1100 MR#: [id number] Acct: [id number] Name: BERNICE HASSAN Rep #:[id number] : 1945 79 From: Nela CORNELIUS PCP: Dr. Dago Emery MD Status:ADM I N Location: [place] [address] Providers Date of Admission: 10/18/24 Primary Care Physician: Dr. Dago Emery MD Consultations 10/16/24 14:53 Consult: Hospitalist Routine Consulting Provider: [facility] Reason for Consult: post op [...] feel patient is ready for discharge to long term facility. Patient states that she feels much [...] % (Auto) 54.7, Lymph % (Auto) 27.2, Geary % (Auto) 15.2 H, Eos % (Auto) [...] Profile (BMP) (Routine) Timeframe: 1 Week Facility: [facility] - Location: Laboratory Ordered By: Nela Wallace CBC W/Diff, Automated (Routine) Timeframe: 1 Week Facility: [facility] - Location: Laboratory Ordered By: Nela Wallace Referrals / Follow Up: Dago Emery Chi, MD [Primary Care Provider] - Disposition Disposition (needs filled in before D/C Order can be placed): Inpatient Rehab Unit/Facility 10/21/24 1105 <Electronically signed by Nela CORNELIUS> Cosigner Signature (if applicable): CC: ADRYAN Holland; Dr. Dago Emery MD~ Signed [facility] Work Phone: 1(135) 850-188808-02-2025 Discharge summary Author Nela Wallace [facility] Note Date/Time October 21, 2024 10: 59am [facility] Medical Records Department [address] [place] [address] Transfer to [facility] MR#: [id number] Acct: [id number] Name: BERNICE HASSAN Rep #:[id number] : 1945 79 From: Nela CORNELIUS PCP: [...] feel patient is ready for discharge to long term facility. Patient states that she feels much [...] Profile (BMP) (Routine) Timeframe: 1 Week Facility: [facility] - Location: Laboratory Ordered By: Nela Wallace CBC W/Diff, Automated (Routine) Timeframe: 1 Week Facility: [facility] - Location: Laboratory Ordered By: Nela Wallace Referrals / Follow Up: Dago Emery Chi, MD [Primary Care Provider] - Disposition Disposition (needs filled in before D/C Order can be placed): Inpatient Rehab Unit/Facility 10/21/24 1059 <Electronically signed by Nela CORNELIUS> Cosigner Signature (if applicable): CC: Dr. Juliane Villa MD; Dr. Sofia Carvajal MD; Dr. Dago Emery MD ~ [facility] Work Phone: 1(738) 945-520908-02-2025 Progress note Author Nela [facility] Note Date/Time October 21, 2024 10: 33am [facility] Medical Records Department [address] [place] [address] Progress Note - Orthopedic 10/21/24 1022 MR#: [id number] Acct: [id number] Name: BERNICE HASSAN Rep #:[id number] : 1945 79 From: Nela CORNELIUS PCP: Dr. Dago Emery MD Status:ADM I N Location: MS3 JO122-0 Subjective Subjective Patient is sitting comfortably in [...] % (Auto) 54.7, Lymph % (Auto) 27.2, Geary % (Auto) 15.2 H, Eos % (Auto) [...] feel patient is ready for discharge to long term facility. Patient states that she feels much [...] Cosigner Signature (if applicable): CC: ~ Signed [facility] Work Phone: 1(874) 988-298108-02-2025 Discharge summary [facility] Medical Records Department [address] [place] [address] [place] [address] Discharge Summary 10/21/24 1100 MR#: [id number] Acct: [id number] Name: BERNICE HASSAN Rep #:[id number] : 1945 79 From: Nela CORNELIUS PCP: Dr. Dago Emery MD Status:ADM I N Location: [facility] LC767-8 Providers Date of Admission: 10/18/24 Primary Care Physician: Dr. Dago Emery MD Consultations 10/16/24 14:53 Consult: Hospitalist Routine Consulting Provider: [facility] Reason for Consult: post op [...] feel patient is ready for discharge to long term facility.Patient states that she feels much more [...] % (Auto) 54.7, Lymph % (Auto) 27.2, Geary % (Auto) 15.2 H, Eos % (Auto) [...] Profile (BMP) (Routine) Timeframe: 1 Week Facility: [facility] - Location: Laboratory Ordered By: Nela Wallace CBC W/Diff, Automated (Routine) Timeframe: 1 Week Facility: [facility] - Location: Laboratory Ordered By: Nela Wallace Referrals / Follow Up: Dago Emery Chi, MD [Primary Care Provider] - Disposition Disposition (needs filled in before D/C Order can be placed): Inpatient Rehab Unit/Facility 10/21/24 1105 Cosigner Signature (if applicable): CC: ADRYAN Holland; Dr. Dago Emery MD~ Signed [facility]08-02-2025 [facility]-2025 Discharge summary [facility] Medical Records Department [address] [place] [address] Transfer to [facility] MR#: [id number] Acct: [id number] Name: BERNICE HASSAN Rep #:[id number] : 1945 79 From: Nela CORNELIUS PCP: [...] SERVICES PRIOR TO HIS/HER TRANSFER TO [facility]. 10/21/24 1059 Diet Diet Order/Speech Therapy: INPATIENT [...] feel patient is ready for discharge to long term facility.Patient states that she feels much more [...] Profile (BMP) (Routine) Timeframe: 1 Week Facility: [facility] - Location: Laboratory Ordered By: Nela Wallace CBC W/Diff, Automated (Routine) Timeframe: 1 Week Facility: [facility] - Location: Laboratory Ordered By: Nela Wallace Referrals / Follow Up: Dago Emery Chi, MD [Primary Care Provider] - Disposition Disposition (needs filled in before D/C Order can be placed): Inpatient Rehab Unit/Facility 10/21/24 1059 Cosigner Signature (if applicable): CC: Dr. Juliane Villa MD; Dr. Soifa Carvajal MD; Dr. Dago Emery MD ~ [facility]08-02-2025 Progress note [facility] Medical Records Department [address] [place] [address] Progress Note - Orthopedic 10/21/24 1022 MR#: [id number] Acct: [id number] Name: BERNICE HASSAN Rep #:[id number] : 1945 79 From: Nela CORNELIUS PCP: Dr. Dago Emery MD Status:ADM I N Location: [place]3 LJ840-9 Subjective Subjective Patient is sitting comfortably in [...] % (Auto) 54.7, Lymph % (Auto) 27.2, Geary % (Auto) 15.2 H, Eos % (Auto) [...] feel patient is ready for discharge to long term facility.Patient states that she feels much more [...] Cosigner Signature (if applicable): CC: ~ Signed [facility]08-01-2025 Progress note Author Sofia Carvajal [facility] Note Date/Time October 20, 2024 4:4 6pm [facility] Medical Records Department [address] [place] [address] Progress Note - Hospitalist 10/20/24 1640 MR#: [id number] Acct: [id number] Name: BERNICE HASSAN Rep #:[id number] : 1945 79 From: Sofia Carvajal MD PCP: Dr. Dago Emery MD Status:ADM I N Location: MS3 XR600-2 Subjective Subjective Initially this morning patient complaining [...] per Ortho Charges/Coding Visit Charges Inpatient E&M: 33594 Subs Hosp L1 10/20/24 1646 <Electronically signed by Sofia Carvajal MD> Cosigner Signature (if applicable): CC: ~ Signed [facility] Work Phone: 1(175) 900-741308-01-2025 Progress note [facility] Medical Records Department [address] [place] [address] Progress Note - Hospitalist 10/20/24 1640 MR#: [id number] Acct: [id number] Name: BERNICE HASSAN Rep #:[id number] : 1945 79 From: Sofia Carvajal MD PCP: Dr. Dago Emery MD Status:ADM I N Location: [place] [address] Subjective Subjective Initially this morning patient complaining [...] per Ortho Charges/Coding Visit Charges Inpatient E&M: 14351 Subs Hosp L1 10/20/24 1646 Cosigner Signature (if applicable): CC: ~ Signed [facility]08-01-2025 Progress note Author Nela Wallace [facility] Note Date/Time October 20, 2024 11: 56am [facility] Medical Records Department [address] [place] [address] Progress Note - Orthopedic 10/20/24 1144 MR#: [id number] Acct: [id number] Name: BERNICE HASSAN Rep #:[id number] : 1945 79 From: Nela CORNELIUS PCP: Dr. Dago Emery MD Status:ADM I N Location: [place]3 AS135-5 Subjective Subjective Patient is sitting comfortably in [...] feel patient is ready for discharge to long term facility at this time. Due to the [...] Cosigner Signature (if applicable): CC: ~ Signed [facility] Work Phone: 1(663) 423-112908-01-2025 Progress note [facility] Medical Records Department [address] [place] [address] Progress Note - Orthopedic 10/20/24 1144 MR#: [id number] Acct: [id number] Name: BERNICE HASSAN Rep #:[id number] : 1945 79 From: Nela CORNELIUS PCP: Dr. Dago Emery MD Status:ADM I N Location: [place]3 UE919-5 Subjective Subjective Patient is sitting comfortably in [...] feel patient is ready for discharge to long term facility at this time. Due to the [...] Cosigner Signature (if applicable): CC: ~ Signed [facility]07-31-2025 Progress note Author Landen Potts [facility] Note Date/Time October 19, 2024 1:45 pm [facility] Medical Records Department [address] [place] [address] Progress Note - Orthopedic 10/19/24 1306 MR#: [id number] Acct: [id number] Name: BERNIEC HASSAN Rep #:[id number] : 1945 79 From: Landen CORNELIUS PA-C PCP: Dr. Dago Emery MD Status:ADM I N Location: [place] [address] Subjective Subjective The patient was sitting in [...] (Auto) 66.7, Lymph % (Auto) 14.4 L, Geary % (Auto) 17.1 H, Eos % (Auto) [...] intramedullary nailing of the tibia. Reading Location: [facility] Physical Exam Narrative Vital signs stable and [...] feel patient is ready for discharge to long term facility. Due to the acute distal tibia [...] Cosigner Signature (if applicable): CC: ~ Signed [facility] Work Phone: 1(529) 572-451007-31-2025 Progress note [facility] Medical Records Department [address] [place] [address] Progress Note - Orthopedic 10/19/24 1306 MR#: [id number] Acct: [id number] Name: BERNICE HASSAN Rep #:[id number] : 1945 79 From: Landen CORNELIUS PA-C PCP: Dr. Dago Emery MD Status:ADM I N Location: [place] [address] Subjective Subjective The patient was sitting in [...] (Auto) 66.7, Lymph % (Auto) 14.4 L, Geary % (Auto) 17.1 H, Eos % (Auto) [...] intramedullary nailing of the tibia. Reading Location: [facility] Physical Exam Narrative Vital signs stable and [...] feel patient is ready for discharge to long term facility. Due to the acute distal tibia [...] Cosigner Signature (if applicable): CC: ~ Signed [facility]07-30-2025 Radiology Diagnostic study note [facility] Imaging Services [address] [place] [address] Knee 1 or 2 Views MR#: [id number] Acct: [id number] Name: BERNICE HASSAN Rep #: [id number] : 1945 F 79 From: Antonio Caballero MD PCP: Dr. Dago Emery MD Status: ADM I N Study:Knee 1 or 2 Views Date of Exam: Exam# [id number] Ordering Dr: Grayson Rodriguez MD PROCEDURE: KNEE [...] intramedullary nailing of the tibia. Reading Location: [id number] CC: Dr. Geo Rodriguez MD; Dr. Dago Emery MD ~ Supervisor Contact Lens: Signed [facility]07-30-2025 Progress note Author See Valente [facility] Note Date/Time October 18, 2024 10:2 8am [facility] Medical Records Department [address] [place] [address] Progress Note - Hospitalist 10/18/24 1015 MR#: [id number] Acct: [id number] Name: BERNICE HASSAN Rep #:[id number] : 1945 79 From: See ko MD PCP: Dr. Dago Emery MD Status:ADM I NO Location: [place]3 LC739-0 Subjective Subjective Had a transient episode of [...] 73.5 H, Lymph % (Auto) 11.1 L, Geary % (Auto) 14.6 H, Eos % (Auto) [...] fibular fracture associated. No dislocation. Reading Location: [place] [address] Physical Exam Narrative General: Alert, Oriented x3, [...] per Ortho Charges/Coding Visit Charges Inpatient E&M: 66149 Subs Hosp L2 10/18/24 102 <Electronically signed by See Valente MD> Cosigner Signature (if applicable): CC: ~ Signed [facility] Work Phone: 1(467) 108-583407-30-2025 Progress note Author Nela Wallace [facility] Note Date/Time October 18, 2024 8:38 am [facility] Medical Records Department [address] [place] [address] Progress Note - Orthopedic 10/18/24 0826 MR#: [id number] Acct: [id number] Name: BERNICE HASSAN Rep #:[id number] : 1945 79 From: Nela CORNELIUS PCP: Dr. Dago Emery MD Status:ADM I NO Location: [address] Subjective Subjective Patient is anxious and [...] 73.5 H, Lymph % (Auto) 11.1 L, Geary % (Auto) 14.6 H, Eos % (Auto) [...] extension appreciated. Congruent ankle mortise. Reading Location: [id number] Lower Extremity CT 10/17/24 21:42 IMPRESSION: Acute distal tibial meta diaphyseal junction fracture, no extension to the articular surface. No acute distal fibular fracture associated. No dislocation. Reading Location: [place] [address] Physical Exam Narrative JUDE hose in place [...] Cosigner Signature (if applicable): CC: ~ Signed [facility] Work Phone: 1(271) 468-930807-30-2025 Progress note [facility] Medical Records Department [address] [place] [address] Progress Note - Hospitalist 10/18/24 1015 MR#: [id number] Acct: [id number] Name: BERNICE HASSAN Rep #:[id number] : 1945 79 From: See ko MD PCP: Dr. Dago Emery MD Status:ADM I NO Location: [place] [address] Subjective Subjective Had a transient episode of [...] 73.5 H, Lymph % (Auto) 11.1 L, Geary % (Auto) 14.6 H, Eos % (Auto) [...] extension appreciated. Congruent ankle mortise. Reading Location: [id number] Lower Extremity CT 07/29/25 21:42 IMPRESSION: Acute distal tibial meta diaphyseal junction fracture, no extension to the articular surface. No acute distal fibular fracture associated. No dislocation. Reading Location: [place] [address] Physical Exam Narrative General: Alert, Oriented x3, [...] per Ortho Charges/Coding Visit Charges Inpatient E&M: 32278 Subs Hosp L2 10/18/24 1028 Cosigner Signature (if applicable): CC: ~ Signed [facility]07-30-2025 Progress note [facility] Medical Records Department [address] [place] [address] Progress Note - Orthopedic 10/18/2426 MR#: [id number] Acct: [id number] Name: BERNICE HASSAN Rep #:[id number] : 1945 79 From: Nela CORNELIUS PCP: Dr. Dago Emery MD Status:ADM I NO Location: [place]3 XY079-2 Subjective Subjective Patient is anxious and down [...] 73.5 H, Lymph % (Auto) 11.1 L, Geary % (Auto) 14.6 H, Eos % (Auto) [...] fibular fracture associated. No dislocation. [facility] Physical Exam Narrative JUDE hose [...] Cosigner Signature (if applicable): CC: ~ Signed [facility]07-29-2025 Radiology Diagnostic study note [facility] Imaging Services [address] [place], [place] [address] Extremity Lower without Contra MR#: [id number] Acct: [id number] Name: BERNICE HASSAN Rep #: [id number] : 1945 F 79 From: Saida Osman MD PCP: Dr. Dago Emery MD Status: ADM I NO Study:Extremity Lower without Contra Date of Exam: 10/17/24 Exam# [id number] Ordering Dr: Bharathi Wallace PROCEDURE: EXTREMITY LOWER [...] fibular fracture associated. No dislocation. Reading Location: [place] [address] CC: ADRYAN Holland; Dr. Dago Emery MD ~ Supervisor Contact Lens: Signed [facility]07-29-2025 Radiology Diagnostic study note [facility] Imaging Services [address] [place] [address] Ankle min 3 Views MR#: [id number] Acct: [id number] Name: BERNICE HASSAN Rep #: [id number] : 1945 F 79 From: Yoshi Montes MD PCP: Dr. Dago Emery MD Status: ADM I NO Study:Ankle min 3 Views Date of Exam: Exam# [id number] Ordering Dr: Bharathi Wallace PROCEDURE: LEFT ANKLE [...] extension appreciated. Congruent ankle mortise. Reading Location: [id number] CC: ADRYAN Holland; Dr. Dago Emery MD ~ Supervisor Contact Lens: Signed [facility]07-29-2025 Progress note Author Nela Wallace [facility] Note Date/Time October 17, 2024 4:03 pm [facility] Medical Records Department [address] [place] [address] Progress Note - Orthopedic 10/17/24 1554 MR#: [id number] Acct: [id number] Name: BERNCIE HASSAN Rep #:[id number] : 1945 79 From: Nela CORNELIUS PCP: Dr. Dago Emery MD Status:ADM I NO Location: [place]3 HZ252-2 Subjective Subjective Patient appears to be comfortable [...] hardware and expected postop changes. Reading Location: [id number] Physical Exam Narrative UJDE hose in place bilaterally SCDs in place [...] we will plan to discharge patient to [facility]. Patientwas educated she can continue to [...] Cosigner Signature (if applicable): CC: ~ Signed [facility] Work Phone: 1(324) 140-688607-29-2025 Progress note [facility] Medical Records Department [address] [place] [address] Progress Note - Orthopedic 10/17/24 1554 MR#: [id number] Acct: [id number] Name: BERNICE HASSAN Rep #:[id number] : 1945 79 From: Nela CORNELIUS PCP: Dr. Dago Emery MD Status:ADM I NO Location: [place] 015431-1 Subjective Subjective Patient appears to be comfortable [...] hardware and expected postop changes. Reading Location: [id number] Physical Exam Narrative JUDE hose in place [...] we will plan to discharge patient to [facility]. Patientwas educated she can continue to take her Zofran as needed for nausea and vomiting. Patient will need to get physical therapy done in the TCU. Patient does have 2- week follow-up visit scheduled to do a wound check. Patient was encouraged to call with any questions, concerns, new problems. 10/17/24 1603 Cosigner Signature (if applicable): CC: ~ Signed [facility]07-29-2025 Progress note Author See Valente [facility] Note Date/Time October 17, 2024 9:03 am [facility] Medical Records Department [address] [place] [address] Progress Note - Hospitalist 10/17/24 0857 MR#: [id number] Acct: [id number] Name: BERNICE HASSAN Rep #:[id number] : 1945 79 From: See ko MD PCP: Dr. Dago Emery MD Status:ADM I N Location: [place] [address] Subjective Subjective Doing well, no issues overnight. [...] per Ortho Charges/Coding Visit Charges Inpatient E&M: 97461 Subs Hosp L2 10/17/24 0903 <Electronically signed by See Valente MD> Cosigner Signature (if applicable): CC: ~ Signed [facility] Work Phone: 1(278) 195-675407-29-2025 Progress note [facility] Medical Records Department [address] [place] [address] Progress Note - Hospitalist 10/17/24 0857 MR#: [id number] Acct: [id number] Name: BERNICE HASSAN Rep #:[id number] : 1945 79 From: See ko MD PCP: Dr. Dago Emery MD Status:ADM I N Location: [place] [address] Subjective Subjective Doing well, no issues overnight. [...] per Ortho Charges/Coding Visit Charges Inpatient E&M: 13253 Subs Hosp L2 10/17/24 0903 Cosigner Signature (if applicable): CC: ~ Signed [facility]07-28-2025 Consult note Author Saulo Bullock [facility] Note Date/Time October 16, 2024 8:29 pm [facility] Medical Records Department [address] [place] [address] Consultation - Hospitalist 10/16/241953 MR#: [id number] Acct: [id number] Name: HASSANBERNICE K Rep #:[id number] : 1945 79 From: Saulo desai DO PCP: Dr. Dago Emery MD Status:ADM I N Location: [place] [address] Assessment & Plan Assessment/Plan (1) Status post total left knee replacement: PLAN: Plan Patient is an 79-year-old female who presented [facility] on 10/16/2024 for planned left total [...] is a 79 F who presented to [facility] on 10/16/2024 for planned left knee [...] Denied any other pain or discomfort currently. [facility] Medical History Cardiology follow-up encounter Wears [...] never substance use type: does not use justice/oriental orthodox: Anglican seatbelt use: always do you feel safe [...] hardware and expected postop changes. Reading Location: [facility] Charges/Coding Visit Charges Inpatient E&M: 68392 Subs Hosp L2 10/16/242028 <Electronically signed by Saulo Bullock DO> Cosigner Signature (if applicable): CC: Dr. Geo Rodriguez MD; Dr. Dago Emery MD~ Signed [facility] Work Phone: 1(604) 769-852107-28-2025 Consult note Author Ki Cabrera [facility] Note Date/Time October 16, 2024 6:50 pm [facility] Medical Records Department [address] [place] [address] Anesthesia Postop Eval I 10/16/24 1849 MR#: [id number] Acct: [id number] Name: BERNICE HASSAN Rep #:[id number] : 1945 79 From: Ki Cabrera MD PCP: Dr. Dago Emery MD Status:ADM I N Y Race: C Location: [place] [address] - Anesthesia: Postop Eval I Current Vital [...] MD > Date _ Ki Cabrera MD [facility] Signature: Date CC: ~ Signed [facility] Work Phone: 1(500) 690-818407-28-2025 Consult note Author Ki [facility] Note Date/Time October 16, 2024 6:50 pm [facility] Medical Records Department [address] [place] [address] Anesthesia Postop Eval II 10/16/24 185 MR#: [id number] Acct: [id number] Name: BERNICE HASSAN Rep #:[id number] : 1945 79 From: Ki Cabrera MD PCP: Dr. Dago Emery MD Status:ADM I N Y Race: C Location: [place] [address] - Anesthesia Postop Eval I Sum Postop [...] Level: 3 nausea: No Vomiting: No 10/16/24 7240 <Electronically signed by Ki Cabrera MD > Date _ Ki Cabrera MD Cosigner Signature: Date CC: ~ Signed [facility] Work Phone: 1(778) 234-271607-28-2025 Consult note [facility] Medical Records Department [address] [place] [address] Consultation - Hospitalist 10/16/241953 MR#: [id number] Acct: [id number] Name: BERNICE HASSAN Rep #:[id number] : 1945 79 From: Saulo desai DO PCP: Dr. Dago Emery MD Status:ADM I N Location: [place] [address] Assessment & Plan Assessment/Plan (1) Status post total left knee replacement: PLAN: Plan Patient is an 79-year-old female who presented [facility] on 10/16/2024 for planned left total [...] is a 79 F who presented to [facility] on 10/16/2024 for planned left knee [...] Denied any other pain or discomfort currently. [facility] Medical History Cardiology follow-up encounter Wears [...] never substance use type: does not use justice/oriental orthodox: Anglican seatbelt use: always do you feel safe [...] hardware and expected postop changes. Reading Location: [id number] Charges/Coding Visit Charges Inpatient E&M: 11922 [facility] Hosp L2 10/16/242028 Cosigner Signature (if applicable): CC: Dr. Geo Rodriguez MD; Dr. Dago Emery MD~ Signed [facility]07-28-2025 Radiology Diagnostic study note [facility] Imaging Services [address] [place] [address] Knee 1 or 2 Views MR#: [id number] Acct: [id number] Name: BERNICE HASSAN Rep #: [id number] : 1945 F 79 From: Yoshi Montes MD PCP: Dr. Dago Emery MD Status: ADM I N Study:Knee 1 or 2 Views Date of Exam: Exam# [id number] Ordering Dr: Grayson Rodriguez MD PROCEDURE: LEFT [...] Rodriguez MD; Dr. Dago Emery MD ~ Supervisor Contact Lens: Signed [facility]07-28-2025 Consult note [facility] Medical Records Department [address] [place] [address] Anesthesia Postop Eval I 10/16/24 1849 MR#: [id number] Acct: [id number] Name: BERNICE HASSAN Rep #:[id number] : 1945 79 From: Ki Cabrera MD PCP: Dr. Dago Emery MD Status:ADM I N Y Race: C Location: [place] [address] Anesthesia: Postop Eval I Current Vital Signs [...] MD Cosigner Signature: Date CC: ~ Signed [facility]07-28-2025 Consult note [facility] Medical Records Department [address] [place] [address] Anesthesia Postop Eval II 10/16/241849 MR#: [id number] Acct: [id number] Name: BERNICE HASSAN Rep #:[id number] : 1945 79 From: Ki Cabrera MD PCP: Dr. Dago Emery MD Status:ADM I N Y Race: C Location: [place] [address] Anesthesia Postop Eval I Sum Postop Eval [...] MD Cosigner Signature: Date CC: ~ Signed [facility]07-28-2025 Consult note Author Ki wali [facility] Note Date/Time October 16, 2024 10:5 1am [facility] Medical Records Department [address] [place] [address] Pre-Anesthesia Evaluation 10/16/24 1050 MR#: [id number] Acct: [id number] Name: BERNICE HASSAN Rep #:[id number] : 1945 79 From: Ki Cabrera MD PCP: Dr. Dago Emery MD Status:REG S DC Y Race: C Location: [place] [address] ASA Classification* ASA Classification ASA Classification: 2 [...] KNEE ARTHROPLASTY Anesthesia History Anesthesia History - cooker syrup: Anesthesia History - cooker syrup Hx Hospitalization No 10/04/24 13:47 Any Problems [...] take am of surgery PONV PONV - cooker syrup: PONV - cooker syrup Female Yes 10/04/24 13:47 HX of Motion [...] 10/11/24 15:05 Respiratory Assessment Respiratory Assessment - cooker syrup: Respiratory Tract Infection Hx - cooker syrup Hx Respiratory Tract Infection No 10/04/24 13:47 STOP Sleep Apnea STOP Sleep Apnea - cooker syrup: STOP Sleep Apnea - cooker syrup Hx Hypertension Yes: CONTROLLED WITH MED 10/04/24 [...] Tobacco Use History Tobacco Use History - cooker syrup: Tobacco Use History - cooker syrup Tobacco Use Smoking Status Never smoker 10/04/24 13:47 Hx Tobacco Use No 10/04/24 13:47 Years Smoking Packs Smoked per Day Smoking Cessation Date was within the last 15 years Hx Smoking Cessation Date Hx Smoking Cessation Counseling Hematologic Medial History Hematologic Hx - cooker syrup: Hematologic Medical Hx - mix mill tender Hx of Blood Transfusion No 10/04/24 13:47 [...] confused, unrespo /Reproduction History /Reproductive History - cooker syrup: /Reproductive Hx- cooker syrup Hx Now No 10/04/24 13:47 Gestational Age [...] never substance use type: does not use justice/oriental orthodox: Anglican seatbelt use: always do you feel safe at home: Yes Review of Systems (Anesthesia) ROS Narrative System reviewed and no additional complaints, except as documented. 10/16/24 1051 <Electronically signed by Ki Cabrera MD > Date _ Ki Cabrera MD Cosigner Signature: Date CC: ~ Signed [facility] Work Phone: 1(578) 348-291007-28-2025 History and physical note Author Nela Wallace [facility] Note Date/Time October 16, 2024 10:3 7am [facility] Medical Records Department [address] [place] [address] History & Physical Exam 10/13/24 1655 MR#: [id number] Acct: [id number] Name: BERNICE HASSAN Rep #:[id number] : 1945 79 From: Nela CORNELIUS PCP: Dr. Dago Emery MD Status:REG S DC Location: [place] [address] History and Physical History and Physical Patient [...] LT Hip ORIF - (04/17/2014) JWG @ [facility] LT Leg - (2007) Knee Replacement RT - (09/23/2022) SAW RT TKR ROBOTIC AT [facility] Anesthesia Complications: None Assistive Devices: Glasses, Walker [...] Time: Signature: 10/13/24 1656 <Electronically signed by eNla CORNELIUS> Cosigner Signature (if applicable): CC: ADRYAN [...] MD; Dr. Dago Emery MD ~* Signed [facility] Work Phone: 1(647) 472-389507-28-2025 Consult note [facility] Medical Records Department [address] [place] [address] Pre-Anesthesia Evaluation 10/16/24 1050 MR#: [id number] Acct: [id number] Name: BERNICE HASSAN Rep #:[id number] : 1945 79 From: Ki Cabrera MD [...] KNEE ARTHROPLASTY Anesthesia History Anesthesia History - cooker syrup: Anesthesia History - cooker syrup Hx Hospitalization No 10/04/24 13:47 Any Problems [...] take am of surgery PONV PONV - cooker syrup: PONV - cooker syrup Female Yes 10/04/24 13:47 HX of Motion [...] 10/11/24 15:05 Respiratory Assessment Respiratory Assessment - cooker syrup: Respiratory Tract Infection Hx - cooker syrup Hx Respiratory Tract Infection No 10/04/24 13:47 STOP Sleep Apnea STOP Sleep Apnea - cooker syrup: STOP Sleep Apnea - cooker syrup Hx Hypertension Yes: CONTROLLED WITH MED 10/04/24 [...] Tobacco Use History Tobacco Use History - cooker syrup: Tobacco Use History - cooker syrup Tobacco Use Smoking Status Never smoker 10/04/24 13:47 Hx Tobacco Use No 10/04/24 13:47 Years Smoking Packs Smoked per Day Smoking Cessation Date was within the last 15 years Hx Smoking Cessation Date Hx Smoking Cessation Counseling Hematologic Medial History Hematologic Hx - cooker syrup: Hematologic Medical Hx - mix mill tender Hx of Blood Transfusion No 10/04/24 13:47 [...] confused, unrespo /Reproduction History /Reproductive History - cooker syrup: /Reproductive Hx- cooker syrup Hx Now No 10/04/24 13:47 Gestational Age [...] never substance use type: does not use justice/oriental orthodox: Anglican seatbelt use: always do you feel safe at home: Yes Review of Systems (Anesthesia) ROS Narrative System reviewed and no additional complaints, except as documented. 10/16/24 1051 > Date _ Ki Germain Signature: Date CC: ~ Signed [facility]07-28-2025 History and physical note [facility] Medical Records Department [address] [place] [address] History & Physical Exam 10/13/24 1655 MR#: [id number] Acct: [id number] Name: BERNICE HASSAN Rep #:[id number] : 1945 79 From: Nela CORNELIUS PCP: Dr. aDgo Emery MD Status:REG S [place] Location: [place] [address] History and Physical History and Physical Patient [...] LT Hip ORIF - (04/17/2014) J[facility]G @ [facility] LT Leg - (2007) Knee Replacement RT - (09/23/2022) SAW RT TKR ROBOTIC AT [facility] Anesthesia Complications: None Assistive Devices: Glasses, Walker [...] MD; Dr. Dago Emery MD ~* Signed [facility]07-25-[address] [facility]07-23-2025 Progress [facility] [place] [address] OFFICE VISIT Date of Service: 10/11/24 1453 MR#: [id number] Acct: [id number] Name: BERNICE HASSAN Rep #: [id number] : 1945 From: Carolyn Hernandez ch SACK SEWER MACHINE SACK SEWER MACHINE-C Age/Sex: 79/F Location: [facility] Status: Signed HPI Subjective Date of Service [...] episodes of overt bleeding, + bruises easily. [facility] Medical History (Updated 10/04/24 @ 13:55 [...] never substance use type: does not use justice/oriental orthodox: Anglican seatbelt use: always do you feel safe [...] the past year?: No 10/11/24 1522 h SACK SEWER MACHINE SACK SEWER MACHINE-C> Date _ Carolyn Ruvalcaba NP SACK SEWER MACHINE-C Cosigner Signature: Date (if applicable) CC: ~ [facility]07-23-2025 Progress note Author Carolyn Ruvalcaba [facility] Note Date/Time October 11, 2024 3:22 pm [facility] [address] [address] OFFICE VISIT Date of Service: 10/11/24 1453 MR#: [id number] Acct: [id number] Name: BERNICE HASSAN Rep #: [id number] : 1945 From: Carolyn Hernandez SACK SEWER MACHINE SACK SEWER MACHINE-C Age/Sex: 79/F Location: [facility] Status: Signed HPI Subjective Date [...] episodes of overt bleeding, + bruises easily. [facility] Medical History (Updated 10/04/24 @ 13:55 [...] never substance use type: does not use justice/oriental orthodox: Anglican seatbelt use: always do you feel safe [...] philippe NP, NP-C> Date _ Carolyn Ruvalcaba NP SACK SEWER MACHINE-C Cosigner Signature: Date (if applicable) CC: ~ [facility] Work Phone: 1(218) 937-113907-02-2025 Evaluation note* Diagnosis Onset Date Resolution Status [...] Anemia acute November 01, 2 025 2:50pm [facility] Work Phone: 1(492) 142-262407-02-2025 Evaluation note* Diagnosis Onset Date Resolution Status [...] Anemia acute November 01, 2 025 2:50pm [facility] Work Phone: 1(287) 567-608505-14-2025 Radiology Diagnostic study note [facility] Imaging Services [address] [place], [place] [address] Extremity Lower without Contra MR#: [id number] Acct: [id number] Name: BERNICE HASSAN Rep #: [id number] : 1945 F 79 From: Myron Newton MD PCP: Dr. Dago Emery MD Status: REG C LI Study:Extremity Lower without Contra Date of Exam: 08/01/24 Exam# [id number] Ordering Dr: Grayson Rodriguez MD PROCEDURE: EXTREMITY [...] left tibia without apparent complication. Reading Location: [facility] CC: Dr. Geo Rodriguez MD; Dr. Dago Emery MD ~ Supervisor Contact Lens: Signed [facility]05-02-2025 Consult note Author Franklyn Lopez [facility] Note Date/Time November 01, 2024 4: 13pm [facility] Medical Records Department [address] [place] [address] Anesthesia Postop Eval I 11/01/241612 MR#: [id number] Acct: [id number] Name: BERNICE HASSAN Rep #:[id number] : 1945 79 From: Franklyn CHAMBERS PCP: Dr. Dago Emery MD Status:REG S DC Y Race: C Location: [place] [address] Anesthesia: Postop Eval I Current Vital Signs [...] CRNA Cosigner Signature: Date CC: ~ Signed [facility] Work Phone: 1(782) 707-237304-21-2025 Evaluation note* Diagnosis Onset Date Resolution Status Admit Date Essential thrombocythemia chronic July 10, 2024 12:43pm Myeloproliferative disorder chronic July 10, 2024 12:43pm Essential thrombocythemia chronic July 10, 2024 12:45pm Myeloproliferative disorder chronic July 10, 2024 12:45pm Educational circumstance resolved July 10, 2024 12:45pm Erythrocytosis resolved June 12:45pm Leukocytosis resolved July 10, 2024 12:45pm Thrombocytosis deleted June 12:45pm [facility] Work Phone: [phone]) [phone] Evaluation note* Diagnosis Onset Date Resolution Status [...] 2:15pm Thrombocytosis deleted October 11, 2024 2:15pm [facility] Work Phone: 1(881) 354-136504-21-2025 Evaluation note* Diagnosis Onset Date Resolution Status [...] knee replacement acute October 18, 2024 1:14pm [facility] Work Phone: 1(192) 243-693504-21-2025 Evaluation note* Diagnosis Onset Date Resolution Status [...] Anemia acute November 01, 2 025 2:50pm [facility] Work Phone: Consult note Author Avery Rod [facility] Note Date/Time November 01, 2024 4: 03pm [facility] Medical Records Department [address] [place] [address] Pre-Anesthesia Evaluation 11/01/24 1539 MR#: [id number] Acct: [id number] Name: BERNICE HASSAN Rep #:[id number] : 1945 79 From: Avery Crocker PCP: Dr. Dago Emery MD Status:REG S DC Y Race: C Location: [place] [address]- ASA Classification* ASA Classification ASA Classification: 3 [...] Procedure(s): EGD Anesthesia History Anesthesia History - cooker syrup: Anesthesia History - cooker syrup Hx Hospitalization Yes 11/01/24 15:07 Any Problems [...] take am of surgery PONV PONV - cooker syrup: PONV - cooker syrup Female Yes 11/01/24 15:07 HX of Motion [...] 11/01/24 15:07 Respiratory Assessment Respiratory Assessment - cooker syrup: Respiratory Tract Infection Hx - cooker syrup Hx Respiratory Tract Infection No 11/01/24 15:07 STOP Sleep Apnea STOP Sleep Apnea - cooker syrup: STOP Sleep Apnea - cooker syrup Hx Hypertension Yes 11/01/24 15:07 Hx Sleep [...] Tobacco Use History Tobacco Use History - cooker syrup: Tobacco Use History - cooker syrup Tobacco Use Smoking Status Never smoker 11/01/24 15:07 Hx Tobacco Use No 11/01/24 15:07 Years Smoking Packs Smoked per Day Smoking Cessation Date was within the last 15 years Hx Smoking Cessation Date Hx Smoking Cessation Counseling Hematologic Medial History Hematologic Hx - cooker syrup: Hematologic Medical Hx - mix mill tender Hx of Blood Transfusion No 11/01/24 15:07 [...] confused, unrespo /Reproduction History /Reproductive History - cooker syrup: /Reproductive Hx- cooker syrup Hx Now Gestational Age (in weeks): EDC: [...] never substance use type: does not use jsutice/oriental orthodox: Anglican seatbelt use: always do you feel safe at home: Yes Review of Systems (Anesthesia) ROS Narrative System reviewed and no additional complaints, except as documented. 11/01/24 1601 <Electronically signed by Avery Rod MD> Date _ Avery Rod MD Cosigner Signature: Date CC: ~ Signed [facility] Work Phone: Consult note Author Dinorah Headley [facility] Note Date/Time November 01, 2024 4: 50pm [facility] Medical Records Department [address] [place] [address] Anesthesia Postop Eval II 11/01/24 1633 MR#: [id number] Acct: [id number] Name: BERNICE HASSAN #:[id number] : 1945 79 From: Dinorah Headley CRNA PCP: Dr. Dago Emery MD Status:REG S DC Y Race: C Location: [address] Anesthesia Postop Eval I Sum Postop Eval Completion status Anesthesia document: Postop Eval 1 completed: Yes Anesthesia Postop Eval I Summary Anesthesia Postop Eval I Summary: Anesthesia Postop Eval I: Assessment Summary Airway patent Yes 11/01/24 16:13 ADVERTISING OPERATIONS MANAGER.JBLOU Spontaneous unlabored Yes 11/01/24 16:13 ADVERTISING OPERATIONS MANAGER.JBLOU respirations Mental status Awake,Calm 11/01/24 16:13 ADVERTISING OPERATIONS MANAGER.JBLOU nausea No 11/01/24 16:13 ADVERTISING OPERATIONS MANAGER.JBLOU Vomiting No 11/01/24 16:13 ADVERTISING OPERATIONS MANAGER.JBLOU Anesthesia Postop Eval I: Fluid Summary Crystalloid volume administer 200 11/01/24 16:13 ADVERTISING OPERATIONS MANAGER.JBLOU (ml) Colloids volume administered ( ml) Blood Product volume administered (ml) Total IV fluid infused 200 11/01/24 16:13 ADVERTISING OPERATIONS MANAGER.JBLOU Anesthesia Postop Eval I: Summary Notes Anesthesia Complication No 11/01/24 16:13 ADVERTISING OPERATIONS MANAGER.JBLOU Anesthesia Complication Comment: Post-operative progress note Anesthesia: Postop Eval II Evaluation Mental status: Awake Pain Level: 0 nausea: No Vomiting: No 11/01/24 1633 <Electronically signed by Dinorah jarquin CRNA> Date _ Dinorah Headley CRNA Cosigner Signature: Date CC: ~ Signed [facility] Work Phone: Discharge summary Author Dr. Yanez [facility] April 12, 2022 10:08am Note Date/Time April 12, 2022 8 :45am [facility] Medical Records Department [facility] [place] [address] Emergency Department Summary 04/12/22 MR#: [id number] Acct: [id number] Name: BERNICE HASSAN Rep #:[id number] : 1945 76 From: Garret Yanez DO [...] states he has a history of osteoarthritis. [facility] Medical History Anxiety Fracture of left [...] never substance use type: does not use justice/oriental orthodox: Anglican seatbelt use: always do you feel safe [...] 9:33 EST Reading Location ID and State: [address] [place] [address] , Service support , Discharge Plan Triage [...] your Primary Care Provider. Call [facility] ([phone]) or report to the closest Emergency Room. Call 911 if necessary. 04/12/22 1008 <Electronically signed by Garret Yanez DO> Cosigner Signature (if applicable): CC: Dr. Dago Emery MD ~ Signed [facility] Work Phone: Evaluation note* Diagnosis Onset Date Resolution Status Essential thrombocythemia ch ronic Myeloproliferative disorder chronic Essential thrombocythemia ch ronic Myeloproliferative disorder chronic Educational circumstance res olved Erythrocytosis resolved Leukocytosis resolved [facility] Work Phone: Evaluation note* Diagnosis Onset Date Resolution Status Essential thrombocythemia ch ronic Myeloproliferative disorder chronic Educational circumstance res olved Erythrocytosis resolved Leukocytosis resolved Essential thrombocythemia ch ronic Myeloproliferative disorder chronic [facility] Work Phone: Evaluation note* Diagnosis Onset Date Resolution Status BMI 33.0-33.9,adult acute Debility acute Status post total right knee replacement acute Essential thrombocythemia ch ronic Hyperlipidemia chronic Hypertension chronic Hypothyroidism chronic Essential thrombocythemia ch ronic Myeloproliferative disorder chronic Essential thrombocythemia ch ronic Myeloproliferative disorder chronic Educational circumstance res olved Erythrocytosis resolved Leukocytosis resolved [facility] Work Phone: History and physical note Author Pio Friend [facility] Note Date/Time November 01, 2024 3: 26pm [facility] Medical Records Department [address] [place] [address] History & Physical Exam 11/01/24 1523 MR#: [id number] Acct: [id number] Name: BERNICE HASSAN Rep #:[id number] : 1945 79 From: Pio Webb DO PCP: Dr. Dago Emery MD Status:REG S DC Location: [place] [address] HPI - General General Date of Admission: [...] part of recently but thelast 5 years. [facility] Medical History Cardiology follow-up encounter Wears [...] never substance use type: does not use justice/oriental orthodox: Anglican seatbelt use: always do you feel safe [...] Dago Emery MD; Pio Webb DO~ Signed [facility] Work Phone: Hospital Discharge instructionsAmbulatory Orders* 12 Lead EKG [[facility]] Location: None Selected [facility] Work Phone: Hospital Discharge instructionsAdditional Instructions Discharge 11/28/2024 to [facility], intermediate, private pay, part B therapies.[facility] Work Phone: Reason for referral (narrative)No reason for referral information availableWMadison Health Work Phone: Chief Complaint and Reason for [...] September 20, 2024 2:25p m Pre-op evaluation Carol 2nd, 2025 2:25p m Hyperlipidemia September 20, 2024 2:25p [...] ADMISSION H&P EXAM November 28, 2024 2:04pm [facility] WORK November 29 5:00am ADMISSION H&P [...] No December 02, 2018 12:53pm Power of Visual Aid Expert No November 12:53pm Advance Directive Response Recorded Date/ Time Advance Directives Yes April 19, 2014 4:40pm Living Will No April 12 8:37am Power of Visual Aid Expert No April 12, 2022 8:37am Advance Directive Response Recorded Date/ Time Advance Directives Yes April 19, 2014 5:40pm Living Will No April 12 9:37am Power of Visual Aid Expert No April 12, 2022 9:37am Advance Directive Response Recorded Date/ Time Advance Directives Yes April 19, 2014 5:40pm Living Will Yes September 03, 2022 11:45am Power of Visual Aid Expert Yes September 03 11:45am Advance Directive Response Recorded Date/ Time Name of Medical Power of Visual Aid Expert Dianne Conley , securities attorney September 28, 2022 1:21pm Advance Directives Yes April 19, 2014 4:40pm Living Will Yes September 28, 2022 1:21pm Power of Visual Aid Expert Yes September 28 1:21pm Advance Directive Response Recorded Date/ Time Living Will No June 27, 2018 2:53pm Do you have a Healthcare Power of Visual Aid Expert? No June 27, 2018 2:53pm Advance Directives Yes April 19, 2014 5:40pm Advance Directive Response Recorded Date/ Time Living Will No June 27, 2018 2:53pm Do you have a Healthcare Power of Visual Aid Expert? No June 27, 2018 2:53pm Do you have a Healthcare Power of Visual Aid Expert? Yes October 16, 2024 8:13pm Advance Directives Yes April 19, 2014 5:40pm Advance Directive Response Recorded Date/ Time Living Will No June 27, 2018 2:53pm Do you have a Healthcare Pow er of Visual Aid Expert? No June 27, 2018 2:53pm Do you have a Healthcare Pow er of Visual Aid Expert? Yes October 23, 2024 3:05pm Name of Medical Power of Visual Aid Expert Lizzeth Matias, jon October 23, 2024 3:05pm Do you have a Healthcare Pow er of Visual Aid Expert? No November 01, 2024 3:07pm Do you have a Healthcare Pow er of Visual Aid Expert? Yes October 16, 2024 8:13pm Advance Directives Yes April 19, 2014 5:40pm Advance Directive Response Recorded Date/ Time Advance Directives Yes January 05, 2025 9:23am Living Will No June 27, 2018 2:53pm Do you have a Healthcare Pow er of Visual Aid Expert? No June 27, 2018 2:53pm Do you have a Healthcare Pow er of Visual Aid Expert? Yes October 23, 2024 3:05pm Name of Medical Power of Visual Aid Expert Lizzeth Matias, jon October 23, 2024 3:05pm Do you have a Healthcare Pow er of Visual Aid Expert? No November 01, 2024 3:07pm Do you have a Healthcare Pow er of Visual Aid Expert? Yes October 16, 2024 8:13pm Summary Purpose [...] Care Provider, Referring Provider Active Carolyn Ruvalcaba SACK SEWER MACHINE, SACK SEWER MACHINE-C Attending Provider Active Team Status: Inactive Member [...] 2024 End: July 10, 2024 Carolyn Ruvalcaba SACK SEWER MACHINE, SACK SEWER MACHINE-C Attending Provider Active Start: July 10, 2024 [...] 2024 End: July 10, 2024 Carolyn Ruvalcaba SACK SEWER MACHINE, SACK SEWER MACHINE-C Attending Provider Active Start: July 10, 2024 [...] 2024 End: October 11, 2024 Carolyn Ruvalcaba SACK SEWER MACHINE, SACK SEWER MACHINE-C Attending Provider Active Start: October 11, 2024 [...] 2024 End: October 11, 2024 Carolyn Ruvalcaba SACK SEWER MACHINE, SACK SEWER MACHINE-C Attending Provider Active Start: October 11, 2024 [...] 2024 End: October 11, 2024 Carolyn Ruvalcaba SACK SEWER MACHINE, SACK SEWER MACHINE-C Attending physician Active Start: October 11, 2024 [...] Active Start: October 17, 2024 Dr. Geo Rodirguez MD Nurse Practitioner Active Start: October 17, [...] End: November 30, 2024 Fouzia Gaming NP, SACK SEWER MACHINE-C Attending physician Active Start: November 30, 2024 End: November 30, 2024 Team Status: Inactive Member Role/Relationship Status Dates Dr. Dago Emery MD Primary care physician Active Start: December 05, 2024 End: December 05, 2024 Fouzia Gaming NP, SACK SEWER MACHINE-C Attending physician Active Start: December 05, 2024 End: December 05, 2024 Team Status: Active Member Role/Relationship Status Dates Dr. Dago Emery MD Primary care physician Active Start: December 06, 2024 Irvin SARABIA MD Attending physician Active Start: December 06, 2024 Team Status: Active Member Role/Relationship Status Dates Dr. Dago Emery MD Primary care physician Active Start: December 08, 2024 Irvin SARABIA MD Attending physician Active [...] End: December 13, 2024 Fouzia Gaming NP SACK SEWER MACHINE-C Attending physician Active Start: December 13, 2024 [...] section and content) DATE CREATED AUTHOR 01/31/2025 [facility] FOR RECORDS PERTAINING TO PATIENTS WHO ARE [...] BE BASED ON THE PRIMARY CLINICAL RECORDS. [employer] provides no warranty or guarantee of the accuracy or completeness of information in this document.
[2025-03-07 07:51] LABS: Anion Gap 10 (5-15); BUN 18 mg/dL (4-19); BUN/Creat Ratio 16.4 RATIO (10-20); Calcium,Total 8.8 mg/dL (7.6-11.0); Carbon Dioxide 21.8 mmol/L (21.0-32.0); Chloride 104 mmol/L (98-108); Glucose 76 mg/dL (70-99); Potassium 4.3 mmol/L (3.3-5.1)
== END ==
LOC: OLS.WHLTCC 05:00
PROVIDERS: PCP Family Medicine Geriatric Medicine; Visit Provider Internal Medicine
DX: S82.302D Unspecified fracture of lower end of left tibia, subsequent encounter for closed fracture with routine healing (principal); Z96.652 Presence of left artificial knee joint; M62.561 Muscle wasting and atrophy, not elsewhere classified, right lower leg; D69.6 Thrombocytopenia, unspecified
CPT/HCPCS: 36415; 80048

== ENCOUNTER → 2025-03-08 05:00 | Outpatient (REF) | payer MEDICARE, OTHER, SELFPAY ==
--- OUTSIDE RECORDS SUMMARY | 2025-03-08 03:42 | XMS RPT_ITS | CCD ---
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 Dago Emery Chi Primary Care Provider Rupert, Dr. Dago Nicole Referring Provider Herlinda, Dr. Heck Attending Provider Rupert, Dr. Dago Nicole Primary Care Provider Rupert, Dr. Dago Nicole Referring Provider [phone] Peg JAVA J2EE APPLICATION DEVELOPER, JAVA J2EE APPLICATION DEVELOPER-C Carolyn Attending Provider Rupert, Dr. Dago Nicole Primary Care Provider Rupert, Dr. Dago Nicole Referring Provider Herlinda, Dr. Heck Attending Provider Rupert COON, Dr. Dago Nicole Primary Care Provider Rupert COON, Dr. Dago Nicole Referring Provider Peg JAVA J2EE APPLICATION DEVELOPER-C, Carolyn Attending Provider Herlinda COON, Dr. Heck Attending Provider Rupert COON, Dr. Dago Nicole Attending Provider Dr. Omero Armas MD Attending Provider Herlinda COON, Dr. Heck Attending Provider Sven COON, Dr. Guardado Admit Provider [phone] Sven COON, Dr. Guardado Referring Provider Sven [...] COON, Dr. Dago Nicole Referring Provider Peg JAVA J2EE APPLICATION DEVELOPER-C, Carolyn Attending Provider Rupert COON, Dr. Dago Nicole Primary Care Physician Rupert COON, Dr. Dago Nicole Referring Provider Chanda COON, Dr. Jamil Attending Physician Peg JAVA J2EE APPLICATION DEVELOPER-C, Carolyn Attending Physician Herlinda COON, Dr. Heck [...] Wei COON, Dr. Black Nurse Practitioner Allen CONO, Dr. Juliane Murguia Nurse Practitioner Wei COON, Dr. Black Attending Physician Rupert COON, Dr. Dago Nicole Admitting Physician Rupert COON, Dr. Dago Nicole Attending Physician Rupert COON, Dr. Dago Nicole Nurse Practitioner Jon UGALDE, Dr. Suero Attending Physician Jon UGALDE, Dr. Suero Nurse Practitioner Bala COON, Dr. Bryan Attending Physician Irvin Mckenna MD Attending Physician Unavail able Amberly JAVA J2EE APPLICATION DEVELOPER-C, Fouzia Attending Physician Irvin Joe Attending Unavailabl e Rupert, Dago Chi Primary Care Unavailable Oleghe Irvin SARABIA Attending Unavailabl e Rupert, Dago Chi Primary Care Unavailable Oleghe Irvin SARABIA Attending Unavailabl e Rupert, Dago Chi Primary Care Unavailable Amberly JAVA J2EE APPLICATION DEVELOPER, Fouzia Attending Unavailable Rupert, Dago Chi Primary [...] Unavailable Rupert, Dago Chi Referring Unavailable Amberly JAVA J2EE APPLICATION DEVELOPER, Fouzia Attending Unavailable Rupert, Dago Chi Primary [...] Unavailable Rupert, Dago Chi Referring Unavailable Peg JAVA J2EE APPLICATION DEVELOPER, Carolyn Attending Unavailable Rupert, Dago Chi Primary Care Unavailable Rupert, Dago Chi Referring Unavailable Rupert, Dago Chi Primary Care Unavailable Umang Pate Attending Unavailable Tickton JAVA J2EE APPLICATION DEVELOPER, Fouzia Attending Unavailable Rupert, Dago Chi Primary [...] Rupert, Dago Chi Primary Care Unavailable Amberly JAVA J2EE APPLICATION DEVELOPER, Fouzia Attending Unavailable Rupert, Dago Chi Primary Care Unavailable Omero Armas Attending Unavailable Rupert, Dago Chi Referring Unavailable Rupert, Dago Chi Primary Care Unavailable Peg JAVA J2EE APPLICATION DEVELOPER, Carolyn Attending Unavailable Rupert, Dago Chi Referring [...] 2 Unknown [facility] Comment on above: mouth to droop (16 sources) Penicillins Propensity to adverse reactions 2 Swelling [facility] (17 sources) Promethazine; Translations: [promethazine HCl] Drug Allergy 2 Other [facility] Comment on above: heightens engery (zi ng) (16 sources) Tetanus Vaccines and Toxoid Propensity to adverse reactions 2 NEEDS FOLLOW-UP [facility] (1 source) Penicillins Drug allergy (disorder) 5 [facility] Repository (1 source) Tetanus Vaccines and Toxoid Drug allergy (disorder) 5 [facility] Repository Medications Current Medications Medication Drug Class(es) [...] docusate sodium 50 mg / adria osides, penitentiary 8.6 mg oral tablet (20 sources) Start: [...] hip requiring operative repair polyethylene glycol 3350 77199 mg powder for oral solution (7 sources) [...] W/Diff, Automatedon 11-0 Absolute Neut Normal 2.0-7.7 [facility] Comment on above: Result Comment: OK T O CANCEL PER DR PATE Performed By: #### L 500.4050, L100.0100 ####[facility] [address] [place], [place], [id number] HCT Normal 37-47 [facility] Comment on above: Result Comment: OK T O CANCEL PER DR PATE Performed By: #### L 500.4050, L100.0100 ####[facility] [address] [place], [address] HGB Normal 12.0-15.0 [facility] Comment on above: Result Comment: OK T O CANCEL PER DR PATE Performed By: #### L 500.4050, L100.0100 ####[facility] [address] [place], [address] MCH Normal 27.0-32.0 [facility] Comment on above: Result Comment: OK T O CANCEL PER DR PATE Performed By: #### L 500.4050, L100.0100 ####[facility] [address] [place], [address] MCHC Normal 32-36 [facility] Comment on above: Result Comment: OK T O CANCEL PER DR PATE Performed By: #### L 500.4050, L100.0100 ####[facility] [address] [place], [address] MCV Normal 81-99 [facility] Comment on above: Result Comment: OK T O CANCEL PER DR PATE Performed By: #### L 500.4050, L100.0100 ####[facility] [address] [place], [address] NEUT% Normal 47-70 [facility] Comment on above: Result Comment: OK T O CANCEL PER DR PATE Performed By: #### L 500.4050, L100.0100 ####[facility] [address] [place], [address] PLT Normal 150-450 [facility] Comment on above: Result Comment: OK T O CANCEL PER DR PATE Performed By: #### L 500.4050, L100.0100 ####[facility] [address] [place], [address] RBC Normal 4.2-5.4 [facility] Comment on above: Result Comment: OK T O CANCEL PER DR PATE Performed By: #### L 500.4050, L100.0100 ####[facility] [address] [place], [address] RDW CV Normal 11.6-14.6 [facility] Comment on above: Result Comment: OK T O CANCEL PER DR PATE Performed By: #### L 500.4050, L100.0100 ####[facility] [address] [place], [address] RDW SD Normal 35.1-43.9 [facility] Comment on above: Result Comment: OK T O CANCEL PER DR PATE Performed By: #### L 500.4050, L100.0100 ####[facility] [address] [place], [address] WBC Normal 4.4-11.0 [facility] Comment on above: Result Comment: OK T O CANCEL PER DR PATE Performed By: #### L 500.4050, L100.0100 ####[facility] [address] [place], [address] Comprehensive Metabolic Prof ilon 01-24-2025 ALB Normal 3.4-4.8 [facility] Comment on above: Result Comment: OK T O CANCEL PER DR PATE Performed By: #### L 500.4050, L100.0100 ####[facility] [address] [place], [address] ALK PHOS Normal 35-104 [facility] Comment on above: Result Comment: OK T O CANCEL PER DR PATE Performed By: #### L 500.4050, L100.0100 ####[facility] [address] [place], [address] ALT Normal <=34 [facility] Comment on above: Result Comment: OK T O CANCEL PER DR PATE Performed By: #### L 500.4050, L100.0100 ####[facility] [address] [place], [address] AST Normal <=31 [facility] Comment on above: Result Comment: OK T O CANCEL PER DR PATE Performed By: #### L 500.4050, L100.0100 ####[facility] [address] [place], [address] BUN Normal 4-19 [facility] Comment on above: Result Comment: OK T O CANCEL PER DR PATE Performed By: #### L 500.4050, L100.0100 ####[facility] [address], [address] BUN/CRE Normal 10-20 [facility] Comment on above: Result Comment: OK T O CANCEL PER DR PATE Performed By: #### L 500.4050, L100.0100 ####[facility] [address] [place], [address] Calcium Normal 7.6-11.0 [facility] Comment on above: Result Comment: OK T O CANCEL PER DR PATE Performed By: #### L 500.4050, L100.0100 ####[facility] [address] [place], [address] CL Normal 98-108 [facility] Comment on above: Result Comment: OK T O CANCEL PER DR PATE Performed By: #### L 500.4050, L100.0100 ####[facility] [address] [place], [address] CO2 Normal 21.0-32.0 [facility] Comment on above: Result Comment: OK T O CANCEL PER DR PATE Performed By: #### L 500.4050, L100.0100 ####[facility] [address] [place], [address] CREAT,SERUM Normal 0.70-1.20 [facility] Comment on above: Result Comment: OK T O CANCEL PER DR PATE Performed By: #### L 500.4050, L100.0100 ####[facility] [address] [place], [address] eGFR Normal >60 [facility] Comment on above: Result Comment: OK T O CANCEL PER DR PATE Performed By: #### L 500.4050, L100.0100 ####[facility] [address] [place], [address] GAP Normal 5-15 [facility] Comment on above: Result Comment: OK T O CANCEL PER DR PATE Performed By: #### L 500.4050, L100.0100 ####[facility] [address] [place], [address] GLU Normal 70-99 [facility] Comment on above: Result Comment: OK T O CANCEL PER DR PATE Performed By: #### L 500.4050, L100.0100 ####[facility] [address] [place], [address] Potassium Normal 3.3-5.1 [facility] Comment on above: Result Comment: OK T O CANCEL PER DR PATE Performed By: #### L 500.4050, L100.0100 ####[facility] [address] [place], [address] T BILI Normal 0.00-1.30 [facility] Comment on above: Result Comment: OK T O CANCEL PER DR PATE Performed By: #### L 500.4050, L100.0100 ####[facility] [address] [place], [address] T PROT Normal 5.9-8.4 [facility] Comment on above: Result Comment: OK T O CANCEL PER DR PATE Performed By: #### L 500.4050, L100.0100 ####[facility] [address] [place], [address] Comprehensive Metabolic Profil Normal 133-145 [facility] Comment on above: Result Comment: OK T O CANCEL PER DR ISCKARUS Performed By: #### L 500.4050, L100.0100 ####[facility] [address] [place], [address] Oncology Visit Reporton 11-0 Oncology Visit Report Normal [facility] Absolute lymphocyte countOrd ered By: Irvin Mckenna on 01-10-2025 Lymphocytes Auto (Unsp spec) [#/Vol] 1.16 10*3/uL 0.83-4.51 [facility] Anion gap in Serum or Plasma Ordered By: Irvin Mckenna on 01-10-2025 Anion gap [Moles/Vol] 9 mmol/L 5- [facility] Automated lymphocyte count a s percentage of total leukocytesOrdered By: Irvin Mckenna on 01-10-2025 Lymphocytes/100 WBC Auto (Unsp spec) 34.3 % - [facility] BUN/creatinine ratioOrdered By: Irvin Mckenna on 01-10-2025 Urea nitrogen/Creatinine [Mass ratio] 20.4 mg/mg High 10- [facility] Basophil percentageOrdered B y: Irvin Mckenna on 01-10-2025 Basophils/100 WBC (Bld) 0.6 % 0-1 [facility] Carbon dioxide, total [Moles /volume] in Central venous bloodOrdered By: Irvin Mckenna on 01-10-2025 CO2 [Moles/Vol] 23.7 mmol/L 21.0-32.0 [facility] Chloride assayOrdered By: Layo Mckenna on 01-10-2025 Chloride [Moles/Vol] 104 mmol/L 98-108 [facility] Eosinophil percentageOrdered By: froynoorvikjenni Mckenna on 01-10-2025 Eosinophils/100 WBC (Bld) 2.1 % 0-5 [facility] Erythrocyte distribution wid th ratioOrdered By: Irvin Mckenna on 01-10-2025 Erythrocyte distribution width (RBC) [Ratio] 14.9 % High 11.6-14.6 [facility] Erythrocyte distribution wid th standard deviationOrdered By: Irvin Mckenna on 01-10-2025 Erythrocyte distribution width (RBC) [Ratio] 61.7 fl High 35.1-43.9 [facility] Glomerular filtration rate ( GFR) estimation/1.73 sq m using serum, plasma, or whole bOrdered By: Irvin Mckenna on 01-10-2025 GFR/1.73 sq M.predicted among non-blacks MDRD (S/P/Bld) [Vol rate/Area] 76 mL/min/{1.73_m2} >60 [facility] Hematocrit Auto (Bld) [Volum e fraction]Ordered By: Irvin Mckenna on 01-10-2025 Hematocrit (Bld) [Volume fraction] 30.0 % Low 37-47 [facility] Hemoglobin measurementOrdere d By: Irvin Mckenna on 01-10-2025 Hemoglobin (Bld) [Mass/Vol] 9.9 g/dL Low 12.0-15.0 [facility] Immature granulocytes/100 WB C Auto (Bld)Ordered By: Irvin Mckenna on 01-10-2025 Immature granulocytes/100 WBC (Bld) 0.600 % 0.0-0.9 [facility] MCV (mean corpuscular volume ) determinationOrdered By: Irvin Mckenna on 01-10-2025 MCV (RBC) [Entitic vol] 112.8 fL High 81-99 [facility] Mean corpuscular hemoglobin (MCH) determinationOrdered By: beatris Mckenna on 01-10-2025 MCH (RBC) [Entitic mass] 37.2 pg High 27.0-32.0 [facility] Monocyte percentageOrdered B y: Irvin Mckenna on 01-10-2025 Monocytes/100 WBC (Bld) 6.2 % 0-10 [facility] Neutrophil percentageOrdered By: Irvin Mckenna on 01-10-2025 Neutrophils/100 WBC (Bld) 56.2 % 47-70 [facility] Platelet countOrdered By: Layo Mckenna on 01-10-2025 Platelets (Bld) [#/Vol] 158 10*3/uL 150-450 [facility] Potassium measurement (mass/ volume)Ordered By: Irvin Mckenna on 01-10-2025 Potassium (Unsp spec) [Mass/Vol] 3.8 mmol/L 3.3-5.1 [facility] RBC Auto (Bld) [#/Vol]Ordere d By: Irvin Mckenna on 01-10-2025 RBC (Bld) [#/Vol] 2.66 10*6/uL Low 4.2-5.4 [facility] Serum creatinine measurement (mass/volume)Ordered By: Anupamcandicejenni Mezajerilynelier on 01-10-2025 Creatinine [Mass/Vol] 0.78 mg/dL 0.70-1.20 [facility] Serum glucose measurement (m ass/volume)Ordered By: Irvin Mezajerilynelier on 01-10-2025 Glucose [Mass/Vol] 82 mg/dL 70-99 [facility] Serum or plasma calcium niels urement (mass/volume)Ordered By: Irvin Mezajerilynelier on 01-10-2025 Calcium [Mass/Vol] 8.9 mg/dL 7.6-11.0 [facility] Serum or plasma urea nitroge n measurement (mass/volume)Ordered By: Layofroycandicejenni Mezajerilynelier on 01-10-2025 Urea nitrogen [Mass/Vol] 16 mg/dL 4-19 [facility] Sodium levelOrdered By: Anupam hearn Derrickjerilynelier on 01-10-2025 Sodium [Moles/Vol] 137 mmol/L 133-145 [facility] White blood cell (WBC) count Ordered By: Layofroycandicejenni Mezajerilynelier on 01-10-2025 WBC (Bld) [#/Vol] 3.4 10*3/uL Low 4.4-11.0 [facility] Absolute lymphocyte countOrd ered By: Layofroycandicejenni Mezajerilynelier on 01-03-2025 Lymphocytes Auto (Unsp spec) [#/Vol] 1.09 10*3/uL 0.83-4.51 [facility] Anion gap in Serum or Plasma Ordered By: Layobeatris Mezajerilynelier on 01-03-2025 Anion gap [Moles/Vol] 11 mmol/L 5-15 [facility] Automated lymphocyte count a s percentage of total leukocytesOrdered By: Irvin Mezajerilynelier on 01-03-2025 Lymphocytes/100 WBC Auto (Unsp spec) 29.4 % 19-41 [facility] BUN/creatinine ratioOrdered By: Layofroycandicejenni Mezajerilynelier on 01-03-2025 Urea nitrogen/Creatinine [Mass ratio] 18.6 mg/mg 10-20 [facility] Basophil percentageOrdered B y: Anupamcandicejenni Mezajerilynelier on 01-03-2025 Basophils/100 WBC (Bld) 0.5 % 0-1 [facility] Carbon dioxide, total [Moles /volume] in Central venous bloodOrdered By: beatris Mckenna on 01-03-2025 CO2 [Moles/Vol] 22.3 mmol/L 21.0-32.0 [facility] Chloride assayOrdered By: Layo froynadiya Mckenna on 01-03-2025 Chloride [Moles/Vol] 103 mmol/L 98-108 [facility] Eosinophil percentageOrdered By: Irvin Mckenna on 01-03-2025 Eosinophils/100 WBC (Bld) 1.6 % 0-5 [facility] Erythrocyte distribution wid th ratioOrdered By: froycandicejenni Mckenna on 01-03-2025 Erythrocyte distribution width (RBC) [Ratio] 14.7 % High 11.6-14.6 [facility] Erythrocyte distribution wid th standard deviationOrdered By: beatris Mezajerilynelier on 01-03-2025 Erythrocyte distribution width (RBC) [Ratio] 61.6 fl High 35.1-43.9 [facility] Glomerular filtration rate ( GFR) estimation/1.73 sq m using serum, plasma, or whole bOrdered By: Irvin Mckenna on 01-03-2025 GFR/1.73 sq M.predicted among non-blacks MDRD (S/P/Bld) [Vol rate/Area] 57 mL/min/{1.73_m2} Low >60 [facility] Hematocrit Auto (Bld) [Volum e fraction]Ordered By: Irvin Mckenna on 01-03-2025 Hematocrit (Bld) [Volume fraction] 30.5 % Low 37-47 [facility] Hemoglobin measurementOrdere d By: Irvin Mckenna on 01-03-2025 Hemoglobin (Bld) [Mass/Vol] 10.1 g/dL Low 12.0-15.0 [facility] Immature granulocytes/100 WB C Auto (Bld)Ordered By: Layofroynadiya Derrickjerilynelier on 01-03-2025 Immature granulocytes/100 WBC (Bld) 0.500 % 0.0-0.9 [facility] MCV (mean corpuscular volume ) determinationOrdered By: Layobeatris Mezajerilynelier on 01-03-2025 MCV (RBC) [Entitic vol] 114.2 fL High 81-99 [facility] Mean corpuscular hemoglobin (MCH) determinationOrdered By: Layofroycandicejenni Mezajerilynelier on 01-03-2025 MCH (RBC) [Entitic mass] 37.8 pg High 27.0-32.0 [facility] Monocyte percentageOrdered B y: Layofroycandicejenni Mezajerilynelier on 01-03-2025 Monocytes/100 WBC (Bld) 8.6 % 0-10 [facility] Neutrophil percentageOrdered By: Anupamcandicejenni Mezajerilynelier on 01-03-2025 Neutrophils/100 WBC (Bld) 59.4 % 47-70 [facility] Platelet countOrdered By: Layo spear Derrickjerilynelier on 01-03-2025 Platelets (Bld) [#/Vol] 200 10*3/uL 150-450 [facility] Potassium measurement (mass/ volume)Ordered By: Layobeatris Mezajerilynelier on 01-03-2025 Potassium (Unsp spec) [Mass/Vol] 3.9 mmol/L 3.3-5.1 [facility] RBC Auto (Bld) [#/Vol]Ordere d By: Irvin Derrickjerilynelier on 01-03-2025 RBC (Bld) [#/Vol] 2.67 10*6/uL Low 4.2-5.4 [facility] Serum creatinine measurement (mass/volume)Ordered By: Irvin Mckenna on 01-03-2025 Creatinine [Mass/Vol] 0.99 mg/dL 0.70-1.20 [facility] Serum glucose measurement (m ass/volume)Ordered By: Irvin Mckenna on 01-03-2025 Glucose [Mass/Vol] 81 mg/dL 70-99 [facility] Serum or plasma calcium niels urement (mass/volume)Ordered By: Irvin Mckenna on 01-03-2025 Calcium [Mass/Vol] 9.4 mg/dL 7.6-11.0 [facility] Serum or plasma urea nitroge n measurement (mass/volume)Ordered By: Irvin Mckenna on 01-03-2025 Urea nitrogen [Mass/Vol] 19 mg/dL 4-19 [facility] Sodium levelOrdered By: Anupam nadiya Bala on 01-03-2025 Sodium [Moles/Vol] 136 mmol/L 133-145 [facility] White blood cell (WBC) count Ordered By: Irvin Mckenna on 01-03-2025 WBC (Bld) [#/Vol] 3.7 10*3/uL Low 4.4-11.0 [facility] Absolute lymphocyte countOrd ered By: Irvin Mckenna on 12-28-2024 Lymphocytes Auto (Unsp spec) [#/Vol] 1.22 10*3/uL 0.83-4.51 [facility] Anion gap in Serum or Plasma Ordered By: Irvin Mckenna on 12-28-2024 Anion gap [Moles/Vol] 9 mmol/L - [facility] Automated lymphocyte count a s percentage of total leukocytesOrdered By: Irvin Mckenna on 12-28-2024 Lymphocytes/100 WBC Auto (Unsp spec) 35.5 % 19-41 [facility] BUN/creatinine ratioOrdered By: Irvin Mckenna on 12-28-2024 Urea nitrogen/Creatinine [Mass ratio] 18.4 mg/mg 10-20 [facility] Basophil percentageOrdered B y: Irvin Mckenna on 12-28-2024 Basophils/100 WBC (Bld) 0.9 % 0-1 [facility] Blood manual differential co mment interpretation (narrative result)Ordered By: Irvin Mckenna on 12-28-2024 Manual differential comment Jack (Bld) [Interp] SCANNED [facility] Blood stomatocytes detection by light microscopyOrdered By: Irvin Mckenna on 12-28-2024 Stomatocytes LM Ql (Bld) RARE [facility] Carbon dioxide, total [Moles /volume] in Central venous bloodOrdered By: Irvin Mckenna on 12-28-2024 CO2 [Moles/Vol] 22.7 mmol/L 21.0-32.0 [facility] Chloride assayOrdered By: Layo Mckenna on 12-28-2024 Chloride [Moles/Vol] 104 mmol/L 98-108 [facility] Eosinophil percentageOrdered By: Irvin Mckenna on 12-28-2024 Eosinophils/100 WBC (Bld) 1.2 % 0-5 [facility] Erythrocyte distribution wid th ratioOrdered By: Irvin Mckenna on 12-28-2024 Erythrocyte distribution width (RBC) [Ratio] 15.2 % High 11.6-14.6 [facility] Erythrocyte distribution wid th standard deviationOrdered By: Irvin Mckenna on 12-28-2024 Erythrocyte distribution width (RBC) [Ratio] 65.6 fl High 35.1-43.9 [facility] Glomerular filtration rate ( GFR) estimation/1.73 sq m using serum, plasma, or whole bOrdered By: Irvin Mckenna on 12-28-2024 GFR/1.73 sq M.predicted among non-blacks MDRD (S/P/Bld) [Vol rate/Area] 42 mL/min/{1.73_m2} Low >60 [facility] Hematocrit Auto (Bld) [Volum e fraction]Ordered By: Irvin Mckenna on 12-28-2024 Hematocrit (Bld) [Volume fraction] 30.1 % Low 37-47 [facility] Hemoglobin measurementOrdere d By: Irvin Mckenna on 12-28-2024 Hemoglobin (Bld) [Mass/Vol] 9.7 g/dL Low 12.0-15.0 [facility] Immature granulocytes/100 WB C Auto (Bld)Ordered By: Irvin Mckenna on 12-28-2024 Immature granulocytes/100 WBC (Bld) 0.600 % 0.0-0.9 [facility] MCV (mean corpuscular volume ) determinationOrdered By: Irvin Mckenna on 12-28-2024 MCV (RBC) [Entitic vol] 117.1 fL High 81-99 [facility] Mean corpuscular hemoglobin (MCH) determinationOrdered By: Irvin Mckenna on 12-28-2024 MCH (RBC) [Entitic mass] 37.7 pg High 27.0-32.0 [facility] Monocyte percentageOrdered B y: Irvin Mckenna on 12-28-2024 Monocytes/100 WBC (Bld) 11.3 % High 0-10 [facility] Neutrophil percentageOrdered By: Irvin Mckenna on 12-28-2024 Neutrophils/100 WBC (Bld) 50.5 % 47-70 [facility] Platelet countOrdered By: Layo Mckenna on 12-28-2024 Platelets (Bld) [#/Vol] 233 10*3/uL 150-450 [facility] Potassium measurement (mass/ volume)Ordered By: Irvin Mckenna on 12-28-2024 Potassium (Unsp spec) [Mass/Vol] 4.7 mmol/L 3.3-5.1 [facility] RBC Auto (Bld) [#/Vol]Ordere d By: Irvin Mckenna on 12-28-2024 RBC (Bld) [#/Vol] 2.57 10*6/uL Low 4.2-5.4 [facility] Serum creatinine measurement (mass/volume)Ordered By: Irvin Mckenna on 12-28-2024 Creatinine [Mass/Vol] 1.29 mg/dL High 0.70-1.20 [facility] Serum glucose measurement (m ass/volume)Ordered By: Irvin Mckenna on 12-28-2024 Glucose [Mass/Vol] 82 mg/dL 70-99 [facility] Serum or plasma calcium niels urement (mass/volume)Ordered By: Irvin Mckenna on 12-28-2024 Calcium [Mass/Vol] 9.0 mg/dL 7.6-11.0 [facility] Serum or plasma urea nitroge n measurement (mass/volume)Ordered By: Irvin Mckenna on 12-28-2024 Urea nitrogen [Mass/Vol] 24 mg/dL High 4-19 [facility] Sodium levelOrdered By: Anupam nadiya Bala on 12-28-2024 Sodium [Moles/Vol] 136 mmol/L 133-145 [facility] White blood cell (WBC) count Ordered By: Irvin Mckenna on 12-28-2024 WBC (Bld) [#/Vol] 3.4 10*3/uL Low 4.4-11.0 [facility] Absolute lymphocyte countOrd ered By: Irvin Mckenna on 12-20-2024 Lymphocytes Auto (Unsp spec) [#/Vol] 0.83 10*3/uL 0.83-4.51 [facility] Anion gap in Serum or Plasma Ordered By: Irvin Mckenna on 12-20-2024 Anion gap [Moles/Vol] 11 mmol/L 5-15 [facility] Automated lymphocyte count a s percentage of total leukocytesOrdered By: Irvin Mckenna on 12-20-2024 Lymphocytes/100 WBC Auto (Unsp spec) 19.3 % 19-41 [facility] BUN/creatinine ratioOrdered By: Irvin Mckenna on 12-20-2024 Urea nitrogen/Creatinine [Mass ratio] 17.8 mg/mg 10-20 [facility] Basophil percentageOrdered B y: Irvin Mckenna on 12-20-2024 Basophils/100 WBC (Bld) 0.5 % 0-1 [facility] Carbon dioxide, total [Moles /volume] in Central venous bloodOrdered By: Irvin Mckenna on 12-20-2024 CO2 [Moles/Vol] 20.7 mmol/L Low 21.0-32.0 [facility] Chloride assayOrdered By: aLyo Mckenna on 12-20-2024 Chloride [Moles/Vol] 104 mmol/L 98-108 [facility] Eosinophil percentageOrdered By: Irvin Mckenna on 12-20-2024 Eosinophils/100 WBC (Bld) 1.2 % 0-5 [facility] Erythrocyte distribution wid th ratioOrdered By: Irvin Mckenna on 12-20-2024 Erythrocyte distribution width (RBC) [Ratio] 15.6 % High 11.6-14.6 [facility] Erythrocyte distribution wid th standard deviationOrdered By: Irvin Mckenna on 12-20-2024 Erythrocyte distribution width (RBC) [Ratio] 66.5 fl High 35.1-43.9 [facility] Glomerular filtration rate ( GFR) estimation/1.73 sq m using serum, plasma, or whole bOrdered By: Irvin Mckenna on 12-20-2024 GFR/1.73 sq M.predicted among non-blacks MDRD (S/P/Bld) [Vol rate/Area] 58 mL/min/{1.73_m2} Low >60 [facility] Hematocrit Auto (Bld) [Volum e fraction]Ordered By: Irvin Mckenna on 12-20-2024 Hematocrit (Bld) [Volume fraction] 28.0 % Low 37-47 [facility] Hemoglobin measurementOrdere d By: Irvin Mckenna on 12-20-2024 Hemoglobin (Bld) [Mass/Vol] 9.1 g/dL Low 12.0-15.0 [facility] Immature granulocytes/100 WB C Auto (Bld)Ordered By: Irvin Mckenna on 12-20-2024 Immature granulocytes/100 WBC (Bld) 0.500 % 0.0-0.9 [facility] MCV (mean corpuscular volume ) determinationOrdered By: Irvin Mckenna on 12-20-2024 MCV (RBC) [Entitic vol] 116.2 fL High 81-99 [facility] Mean corpuscular hemoglobin (MCH) determinationOrdered By: Irvin Mckenna on 12-20-2024 MCH (RBC) [Entitic mass] 37.8 pg High 27.0-32.0 [facility] Monocyte percentageOrdered B y: Irvin Mckenna on 12-20-2024 Monocytes/100 WBC (Bld) 9.1 % 0-10 [facility] Neutrophil percentageOrdered By: Irvin Mckenna on 12-20-2024 Neutrophils/100 WBC (Bld) 69.4 % 47-70 [facility] No Panel InformationOrdered By: Irvin Walkere on 12-20-2024 1+ [facility] Platelet countOrdered By: Layo beatris Derrickjerilynelier on 12-20-2024 Platelets (Bld) [#/Vol] 281 10*3/uL 150-450 [facility] Potassium measurement (mass/ volume)Ordered By: Anupamcandicejenni Mckenna on 12-20-2024 Potassium (Unsp spec) [Mass/Vol] 4.3 mmol/L 3.3-5.1 [facility] RBC Auto (Bld) [#/Vol]Ordere d By: Anupamcandicejenni Mckenna on 12-20-2024 RBC (Bld) [#/Vol] 2.41 10*6/uL Low 4.2-5.4 [facility] Serum creatinine measurement (mass/volume)Ordered By: Anupamcandicejenni Mckenna on 12-20-2024 Creatinine [Mass/Vol] 0.98 mg/dL 0.70-1.20 [facility] Serum glucose measurement (m ass/volume)Ordered By: Irvin Mckenna on 12-20-2024 Glucose [Mass/Vol] 80 mg/dL 70-99 [facility] Serum or plasma calcium niels urement (mass/volume)Ordered By: Irvin Mckenna on 12-20-2024 Calcium [Mass/Vol] 8.9 mg/dL 7.6-11.0 [facility] Serum or plasma urea nitroge n measurement (mass/volume)Ordered By: Irvin Mckenna on 12-20-2024 Urea nitrogen [Mass/Vol] 18 mg/dL 4-19 [facility] Sodium levelOrdered By: Anupam heanr Bala on 12-20-2024 Sodium [Moles/Vol] 135 mmol/L 133-145 [facility] White blood cell (WBC) count Ordered By: Irvin Mckenna on 12-20-2024 WBC (Bld) [#/Vol] 4.3 10*3/uL Low 4.4-11.0 [facility] Absolute lymphocyte countOrd ered By: Irvin Mckenna on 12-13-2024 Lymphocytes Auto (Unsp spec) [#/Vol] 0.72 10*3/uL Low 0.83-4.51 [facility] Anion gap in Serum or Plasma Ordered By: Irvin Mckenna on 12-13-2024 Anion gap [Moles/Vol] 11 mmol/L 5-15 [facility] Automated lymphocyte count a s percentage of total leukocytesOrdered By: Irvin Mckenna on 12-13-2024 Lymphocytes/100 WBC Auto (Unsp spec) 17.1 % Low 19-41 [facility] BUN/creatinine ratioOrdered By: froynoorvikjenni Mckenna on 12-13-2024 Urea nitrogen/Creatinine [Mass ratio] 18.2 mg/mg 10-20 [facility] Basophil percentageOrdered B y: Irvin Mckenna on 12-13-2024 Basophils/100 WBC (Bld) 0.5 % 0-1 [facility] Carbon dioxide, total [Moles /volume] in Central venous bloodOrdered By: Anupamnoorvikjenni Mkcenna on 12-13-2024 CO2 [Moles/Vol] 21.8 mmol/L 21.0-32.0 [facility] Chloride assayOrdered By: Layo froynadiya Mckenna on 12-13-2024 Chloride [Moles/Vol] 101 mmol/L 98-108 [facility] Eosinophil percentageOrdered By: froynoorvikjenni Mckenna on 12-13-2024 Eosinophils/100 WBC (Bld) 0.7 % 0-5 [facility] Erythrocyte distribution wid th ratioOrdered By: Irvin Mckenna on 12-13-2024 Erythrocyte distribution width (RBC) [Ratio] 15.6 % High 11.6-14.6 [facility] Erythrocyte distribution wid th standard deviationOrdered By: froynoorvikjenni Mckenna on 12-13-2024 Erythrocyte distribution width (RBC) [Ratio] 67.1 fl High 35.1-43.9 [facility] Glomerular filtration rate ( GFR) estimation/1.73 sq m using serum, plasma, or whole bOrdered By: Irvin Mckenna on 12-13-2024 GFR/1.73 sq M.predicted among non-blacks MDRD (S/P/Bld) [Vol rate/Area] 66 mL/min/{1.73_m2} >60 [facility] Hematocrit Auto (Bld) [Volum e fraction]Ordered By: Irvin Mezajerilynelier on 12-13-2024 Hematocrit (Bld) [Volume fraction] 29.1 % Low 37-47 [facility] Hemoglobin measurementOrdere d By: Layofroynadiya Derrickmag on 12-13-2024 Hemoglobin (Bld) [Mass/Vol] 9.8 g/dL Low 12.0-15.0 [facility] Immature granulocytes/100 WB C Auto (Bld)Ordered By: Layofroycandicejenni Mezajerilynelier on 12-13-2024 Immature granulocytes/100 WBC (Bld) 0.500 % 0.0-0.9 [facility] MCV (mean corpuscular volume ) determinationOrdered By: Irvin Mezajerilynelier on 12-13-2024 MCV (RBC) [Entitic vol] 115.5 fL High 81-99 [facility] Mean corpuscular hemoglobin (MCH) determinationOrdered By: Layobeatris Mezajerilynelier on 12-13-2024 MCH (RBC) [Entitic mass] 38.9 pg High 27.0-32.0 [facility] Monocyte percentageOrdered B y: Irvin Derrickmag on 12-13-2024 Monocytes/100 WBC (Bld) 12.8 % High 0-10 [facility] Neutrophil percentageOrdered By: Layofroynadiya Derrickmag on 12-13-2024 Neutrophils/100 WBC (Bld) 68.4 % 47-70 [facility] No Panel InformationOrdered By: Anupamcandicejenni Mezajerilynelier on 12-13-2024 1+ [facility] Platelet countOrdered By: Layo beatris Derrickjerilynelier on 12-13-2024 Platelets (Bld) [#/Vol] 233 10*3/uL 150-450 [facility] Potassium measurement (mass/ volume)Ordered By: Layofroycandicejenni Mezajerilynelier on 12-13-2024 Potassium (Unsp spec) [Mass/Vol] 4.0 mmol/L 3.3-5.1 [facility] RBC Auto (Bld) [#/Vol]Ordere d By: Anupamcandicejenni Mezajerilynelier on 12-13-2024 RBC (Bld) [#/Vol] 2.52 10*6/uL Low 4.2-5.4 [facility] Serum creatinine measurement (mass/volume)Ordered By: Irvin Mckenna on 12-13-2024 Creatinine [Mass/Vol] 0.88 mg/dL 0.70-1.20 [facility] Serum glucose measurement (m ass/volume)Ordered By: Layofroynadiya Derrickmag on 12-13-2024 Glucose [Mass/Vol] 93 mg/dL 70-99 [facility] Serum or plasma calcium niels urement (mass/volume)Ordered By: Irvin Mckenna on 12-13-2024 Calcium [Mass/Vol] 9.0 mg/dL 7.6-11.0 [facility] Serum or plasma urea nitroge n measurement (mass/volume)Ordered By: Irvin Mckenna on 12-13-2024 Urea nitrogen [Mass/Vol] 16 mg/dL 4-19 [facility] Sodium levelOrdered By: Anupam Mckenna on 12-13-2024 Sodium [Moles/Vol] 134 mmol/L 133-145 [facility] White blood cell (WBC) count Ordered By: Irvin Mckenna on 12-13-2024 WBC (Bld) [#/Vol] 4.2 10*3/uL Low 4.4-11.0 [facility] Potassium measurement (mass/ volume)Ordered By: Irvin Mckenna on 12-08-2024 Potassium (Unsp spec) [Mass/Vol] 3.9 mmol/L 3.3-5.1 [facility] Absolute lymphocyte countOrd ered By: Irvin Mckenna on 12-06-2024 Lymphocytes Auto (Unsp spec) [#/Vol] 0.86 10*3/uL 0.83-4.51 [facility] Anion gap in Serum or Plasma Ordered By: Irvin Mckenna on 12-06-2024 Anion gap [Moles/Vol] 13 mmol/L 5-15 [facility] Automated lymphocyte count a s percentage of total leukocytesOrdered By: Layofroycandicejenni Mezamag on 12-06-2024 Lymphocytes/100 WBC Auto (Unsp spec) 23.6 % 19-41 [facility] BUN/creatinine ratioOrdered By: Layofroycandicejenni Mezajerilnyelier on 12-06-2024 Urea nitrogen/Creatinine [Mass ratio] 13.2 mg/mg 10-20 [facility] Basophil percentageOrdered B y: Irvin Mckenna on 12-06-2024 Basophils/100 WBC (Bld) 0.3 % 0-1 [facility] Carbon dioxide, total [Moles /volume] in Central venous bloodOrdered By: Irvin Mckenna on 12-06-2024 CO2 [Moles/Vol] 24.6 mmol/L 21.0-32.0 [facility] Chloride assayOrdered By: Layo froynadiya Mckenna on 12-06-2024 Chloride [Moles/Vol] 100 mmol/L 98-108 [facility] Eosinophil percentageOrdered By: froynoorvikjenni Mezajerilynelier on 12-06-2024 Eosinophils/100 WBC (Bld) 1.9 % 0-5 [facility] Erythrocyte distribution wid th ratioOrdered By: Layobeatris Mckenna on 12-06-2024 Erythrocyte distribution width (RBC) [Ratio] 16.0 % High 11.6-14.6 [facility] Erythrocyte distribution wid th standard deviationOrdered By: froynoorvikjenni Mezajerilynelier on 12-06-2024 Erythrocyte distribution width (RBC) [Ratio] 66.8 fl High 35.1-43.9 [facility] Glomerular filtration rate ( GFR) estimation/1.73 sq m using serum, plasma, or whole bOrdered By: Irvin Mckenna on 12-06-2024 GFR/1.73 sq M.predicted among non-blacks MDRD (S/P/Bld) [Vol rate/Area] 83 mL/min/{1.73_m2} >60 [facility] Hematocrit Auto (Bld) [Volum e fraction]Ordered By: Irvin Mckenna on 12-06-2024 Hematocrit (Bld) [Volume fraction] 30.0 % Low 37-47 [facility] Hemoglobin measurementOrdere d By: Irvin Mckenna on 12-06-2024 Hemoglobin (Bld) [Mass/Vol] 10.1 g/dL Low 12.0-15.0 [facility] Immature granulocytes/100 WB C Auto (Bld)Ordered By: Irvin Walkerelier on 12-06-2024 Immature granulocytes/100 WBC (Bld) 0.300 % 0.0-0.9 [facility] MCV (mean corpuscular volume ) determinationOrdered By: Layofroycandicejenni Mezajerilynelier on 12-06-2024 MCV (RBC) [Entitic vol] 113.2 fL High 81-99 [facility] Mean corpuscular hemoglobin (MCH) determinationOrdered By: Layofroynadiya Derrickjerilynelier on 12-06-2024 MCH (RBC) [Entitic mass] 38.1 pg High 27.0-32.0 [facility] Monocyte percentageOrdered B y: Irvin Derrickmag on 12-06-2024 Monocytes/100 WBC (Bld) 12.9 % High 0-10 [facility] Neutrophil percentageOrdered By: Irvin Mezajerilynelier on 12-06-2024 Neutrophils/100 WBC (Bld) 61.0 % 47-70 [facility] No Panel InformationOrdered By: Anupamnadiya Derrickjerilynelier on 12-06-2024 RARE [facility] Platelet countOrdered By: Layo beatris Derrickmag on 12-06-2024 Platelets (Bld) [#/Vol] 272 10*3/uL 150-450 [facility] Potassium measurement (mass/ volume)Ordered By: Layobeatris Mezajerilynelier on 12-06-2024 Potassium (Unsp spec) [Mass/Vol] 3.0 mmol/L Low 3.3-5.1 [facility] RBC Auto (Bld) [#/Vol]Ordere d By: Krystinjenni Mezajerilynelier on 12-06-2024 RBC (Bld) [#/Vol] 2.65 10*6/uL Low 4.2-5.4 [facility] Serum creatinine measurement (mass/volume)Ordered By: Layobeatris Mezajerilynelier on 12-06-2024 Creatinine [Mass/Vol] 0.73 mg/dL 0.70-1.20 [facility] Serum glucose measurement (m ass/volume)Ordered By: Irvin Mckenna on 12-06-2024 Glucose [Mass/Vol] 87 mg/dL 70-99 [facility] Serum or plasma calcium niels urement (mass/volume)Ordered By: Krystinjenni Mezajerilynelier on 12-06-2024 Calcium [Mass/Vol] 9.2 mg/dL 7.6-11.0 [facility] Serum or plasma urea nitroge n measurement (mass/volume)Ordered By: Layofroycandicejenni Mezajerilynelier on 12-06-2024 Urea nitrogen [Mass/Vol] 10 mg/dL 4-19 [facility] Sodium levelOrdered By: Anupam Mckenna on 12-06-2024 Sodium [Moles/Vol] 137 mmol/L 133-145 [facility] White blood cell (WBC) count Ordered By: Irvin Derrickmag on 12-06-2024 WBC (Bld) [#/Vol] 3.6 10*3/uL Low 4.4-11.0 [facility] Basic Metabolic Profile (BMP )on 12-01-2024 BUN Normal 4-19 [facility] Comment on above: Result Comment: Canc elled via OM: Order cancelled - Patient discharged Performed By: #### L 100.0100, L500.2500 ####[facility] [id number] [facility] [address] BUN/CRE Normal 10-20 [facility] Comment on above: Result Comment: Canc elled via OM: Order cancelled - Patient discharged Performed By: #### L 100.0100, L500.2500 ####[facility] [id number] [place], [address] Calcium Normal 7.6-11.0 [facility] Comment on above: Result Comment: Canc elled via OM: Order cancelled - Patient discharged Performed By: #### L 100.0100, L500.2500 ####[facility] [id number] [place], [address] CL Normal 98-108 [facility] Comment on above: Result Comment: Canc elled via OM: Order cancelled - Patient discharged Performed By: #### L 100.0100, L500.2500 ####[facility] [id number] [place], [address] CO2 Normal 21.0-32.0 [facility] Comment on above: Result Comment: Canc elled via OM: Order cancelled - Patient discharged Performed By: #### L 100.0100, L500.2500 ####[facility] [id number] [place], [address] CREAT,SERUM Normal 0.70-1.20 [facility] Comment on above: Result Comment: Canc elled via OM: Order cancelled - Patient discharged Performed By: #### L 100.0100, L500.2500 ####[facility] [id number] [place], [address] eGFR Normal >60 [facility] Comment on above: Result Comment: Canc elled via OM: Order cancelled - Patient discharged Performed By: #### L 100.0100, L500.2500 ####[facility] [id number] [place], [address] GAP Normal 5-15 [facility] Comment on above: Result Comment: Canc elled via OM: Order cancelled - Patient discharged Performed By: #### L 100.0100, L500.2500 ####[facility] [id number] [place], [address] GLU Normal 70-99 [facility] Comment on above: Result Comment: Canc elled via OM: Order cancelled - Patient discharged Performed By: #### L 100.0100, L500.2500 ####[facility] [id number] [place], [address] Potassium Normal 3.3-5.1 [facility] Comment on above: Result Comment: Canc elled via OM: Order cancelled - Patient discharged Performed By: #### L 100.0100, L500.2500 ####[facility] [id number] [place], [address] Basic Metabolic Profile (BMP) Normal 133-145 [facility] Comment on above: Result Comment: Canc elled via OM: Order cancelled - Patient discharged Performed By: #### L 100.0100, L500.2500 ####[facility] [id number] [place], [address] CBC W/Diff, Automatedon - Absolute Neut Normal 2.0-7.7 [facility] Comment on above: Result Comment: Canc elled via OM: Order cancelled - Patient discharged Performed By: #### L 100.0100, L500.2500 ####[facility] [id number] [place], [address] HCT Normal 37-47 [facility] Comment on above: Result Comment: Canc elled via OM: Order cancelled - Patient discharged Performed By: #### L 100.0100, L500.2500 ####[facility] [id number] [place], [address] HGB Normal 12.0-15.0 [facility] Comment on above: Result Comment: Canc elled via OM: Order cancelled - Patient discharged Performed By: #### L 100.0100, L500.2500 ####[facility] [id number] [place], [address] MCH Normal 27.0-32.0 [facility] Comment on above: Result Comment: Canc elled via OM: Order cancelled - Patient discharged Performed By: #### L 100.0100, L500.2500 ####[facility] [id number] [place], [address] MCHC Normal 32-36 [facility] Comment on above: Result Comment: Canc elled via OM: Order cancelled - Patient discharged Performed By: #### L 100.0100, L500.2500 ####[facility] [id number], [address] MCV Normal 81-99 [facility] Comment on above: Result Comment: Canc elled via OM: Order cancelled - Patient discharged Performed By: #### L 100.0100, L500.2500 ####[facility] [id number] [place], [address] NEUT% Normal 47-70 [facility] Comment on above: Result Comment: Canc elled via OM: Order cancelled - Patient discharged Performed By: #### L 100.0100, L500.2500 ####[facility] [id number], [address] PLT Normal 150-450 [facility] Comment on above: Result Comment: Canc elled via OM: Order cancelled - Patient discharged Performed By: #### L 100.0100, L500.2500 ####[facility] [id number] [place], [address] RBC Normal 4.2-5.4 [facility] Comment on above: Result Comment: Canc elled via OM: Order cancelled - Patient discharged Performed By: #### L 100.0100, L500.2500 ####[facility] [id number] [place], [address] RDW CV Normal 11.6-14.6 [facility] Comment on above: Result Comment: Canc elled via OM: Order cancelled - Patient discharged Performed By: #### L 100.0100, L500.2500 ####[facility] [id number] [place], [address] RDW SD Normal 35.1-43.9 [facility] Comment on above: Result Comment: Canc elled via OM: Order cancelled - Patient discharged Performed By: #### L 100.0100, L500.2500 ####[facility] [address] [place], [address] WBC Normal 4.4-11.0 [facility] Comment on above: Result Comment: Canc elled via OM: Order cancelled - Patient discharged Performed By: #### L 100.0100, L500.2500 ####[facility] [address] [place], [address] Absolute lymphocyte countOrd ered By: Irvin Mckenna on 11-29-2024 Lymphocytes Auto (Unsp spec) [#/Vol] 0.83 10*3/uL 0.83-4.51 [facility] Anion gap in Serum or Plasma Ordered By: beatris Mckenna on 11-29-2024 Anion gap [Moles/Vol] 13 mmol/L 5-15 [facility] Automated lymphocyte count a s percentage of total leukocytesOrdered By: Irvin Mckenna on 11-29-2024 Lymphocytes/100 WBC Auto (Unsp spec) 21.6 % 19-41 [facility] BUN/creatinine ratioOrdered By: Irvin Mckenna on 11-29-2024 Urea nitrogen/Creatinine [Mass ratio] 10.7 mg/mg 10-20 [facility] Basophil percentageOrdered B y: Irvin Mckenna on 11-29-2024 Basophils/100 WBC (Bld) 0.3 % 0-1 [facility] Bilirubin, totalOrdered By: Irvin Mckenna on 11-29-2024 Bilirubin [Mass/Vol] 0.57 mg/dL 0.00-1.30 [facility] Carbon dioxide, total [Moles /volume] in Central venous bloodOrdered By: beatris Mckenna on 11-29-2024 CO2 [Moles/Vol] 22.7 mmol/L 21.0-32.0 [facility] Chloride assayOrdered By: Layo Mckenna on 11-29-2024 Chloride [Moles/Vol] 101 mmol/L 98-108 [facility] Eosinophil percentageOrdered By: Anupamnoorvikjenni Mckenna on 11-29-2024 Eosinophils/100 WBC (Bld) 1.3 % 0-5 [facility] Erythrocyte distribution wid th ratioOrdered By: Irvin Mckenna on 11-29-2024 Erythrocyte distribution width (RBC) [Ratio] 16.8 % High 11.6-14.6 [facility] Erythrocyte distribution wid th standard deviationOrdered By: Irvin Mckenna on 11-29-2024 Erythrocyte distribution width (RBC) [Ratio] 71.7 fl High 35.1-43.9 [facility] Folate [Moles/volume] in Ser um or PlasmaOrdered By: Irvin Mckenna on 11-29-2024 Folate [Moles/Vol] 28.00 ng/mL 4.60-34.80 [facility] Glomerular filtration rate ( GFR) estimation/1.73 sq m using serum, plasma, or whole bOrdered By: Irvin Mckenna on 11-29-2024 GFR/1.73 sq M.predicted among non-blacks MDRD (S/P/Bld) [Vol rate/Area] 69 mL/min/{1.73_m2} >60 [facility] Hematocrit Auto (Bld) [Volum e fraction]Ordered By: Irvin Mckenna on 11-29-2024 Hematocrit (Bld) [Volume fraction] 30.7 % Low 37-47 [facility] Hemoglobin measurementOrdere d By: Irvin Mckenna on 11-29-2024 Hemoglobin (Bld) [Mass/Vol] 10.3 g/dL Low 12.0-15.0 [facility] Immature granulocytes/100 WB C Auto (Bld)Ordered By: Irvin Mckenna 11-29-2024 Immature granulocytes/100 WBC (Bld) 0.500 % 0.0-0.9 [facility] MCV (mean corpuscular volume ) determinationOrdered By: Irvin Mckenna on 11-29-2024 MCV (RBC) [Entitic vol] 114.6 fL High 81-99 [facility] Mean corpuscular hemoglobin (MCH) determinationOrdered By: beatris Mckenna on 11-29-2024 MCH (RBC) [Entitic mass] 38.4 pg High 27.0-32.0 [facility] Monocyte percentageOrdered B y: Irvin Mckenna on 11-29-2024 Monocytes/100 WBC (Bld) 8.6 % 0-10 [facility] Neutrophil percentageOrdered By: Irvin Mckenna on 11-29-2024 Neutrophils/100 WBC (Bld) 67.7 % 47-70 [facility] No Panel InformationOrdered By: Irvin Mckenna on 11-29-2024 1+ [facility] 22 U/L <32 [facility] Platelet countOrdered By: Layo Mckenna on 11-29-2024 Platelets (Bld) [#/Vol] 249 10*3/uL 150-450 [facility] Potassium measurement (mass/ volume)Ordered By: Irvin Mckenna on 11-29-2024 Potassium (Unsp spec) [Mass/Vol] 3.3 mmol/L 3.3-5.1 [facility] RBC Auto (Bld) [#/Vol]Ordere d By: Irvin Mckenna on 11-29-2024 RBC (Bld) [#/Vol] 2.68 10*6/uL Low 4.2-5.4 [facility] Serum creatinine measurement (mass/volume)Ordered By: Irvin Mckenna on 11-29-2024 Creatinine [Mass/Vol] 0.85 mg/dL 0.70-1.20 [facility] Serum globulin measurementOr dered By: Irvin Mckenna on 11-29-2024 Globulin (S) [Mass/Vol] 2.9 g/dL 2.2-4.2 [facility] Serum glucose measurement (m ass/volume)Ordered By: Irvin Mckenna on 11-29-2024 Glucose [Mass/Vol] 79 mg/dL 70-99 [facility] Serum or plasma alanine bey otransferase (ALT) measurementOrdered By: Irvin Mckenna 11-29-2024 ALT [Catalytic activity/Vol] 7 U/L <35 [facility] Serum or plasma albumin niels urement (mass/volume)Ordered By: Irvin Mckenna on 11-29-2024 Albumin [Mass/Vol] 3.7 g/dL 3.4-4.8 [facility] Serum or plasma albumin/glob ulin mass ratioOrdered By: Irvin Mckenna on 11-29-2024 Albumin/Globulin [Mass ratio] 1.3 {ratio} 0.9-2.4 [facility] Serum or plasma alkaline victor hugo sphatase measurementOrdered By: Irvin Derrickmag on 11-29-2024 ALP [Catalytic activity/Vol] 75 U/L 35-104 [facility] Serum or plasma calcium niels urement (mass/volume)Ordered By: Irvin Derrickjerilynelier on 11-29-2024 Calcium [Mass/Vol] 9.3 mg/dL 7.6-11.0 [facility] Serum or plasma urea nitroge n measurement (mass/volume)Ordered By: Irvin Derrickmag on 11-29-2024 Urea nitrogen [Mass/Vol] 9 mg/dL 4-19 [facility] Sodium levelOrdered By: Anupam hearn Derrickmag on 11-29-2024 Sodium [Moles/Vol] 137 mmol/L 133-145 [facility] TSH DL <= 0.005 mIU/L QnOrde red By: Irvin Derrickmag on 11-29-2024 TSH Qn 1.490 uIU/mL 0.300-4.20 0 [facility] Total proteinOrdered By: Luca Mckenna on 11-29-2024 Protein [Mass/Vol] 6.6 g/dL 5.9-8.4 [facility] White blood cell (WBC) count Ordered By: Layofroycandicejenni Mckenna on 11-29-2024 WBC (Bld) [#/Vol] 3.8 10*3/uL Low 4.4-11.0 [facility] Absolute lymphocyte countOrd ered By: Dago Emery on 11-24-2024 Lymphocytes Auto (Unsp spec) [#/Vol] 1.12 10*3/uL 0.83-4.51 [facility] Absolute neutrophil countOrd ered By: Dago Emery on 11-24-2024 Neutrophils (Bld) [#/Vol] 2.7 10*3/uL 2.0-7.7 [facility] Anion gap in Serum or Plasma Ordered By: Dago Emery on 11-24-2024 Anion gap [Moles/Vol] 12 mmol/L 5-15 [facility] Automated lymphocyte count a s percentage of total leukocytesOrdered By: Dago Emery on 11-24-2024 Lymphocytes/100 WBC Auto (Unsp spec) 27.0 % [facility] BUN/creatinine ratioOrdered By: Dago Emery on 11-24-2024 Urea nitrogen/Creatinine [Mass ratio] 11.3 mg/mg - [facility] Basic Metabolic Profile (BMP )on 11-24-2024 BUN/CRE 11.3 RATIO Normal - [facility] Comment on above: Performed By: #### L 500.2500, L100.0100 ####[facility] [address] [place], [address] Calcium [Mass/Vol] 9.0 mg/dL Normal 7.6-11.0 [facility] Comment on above: Performed By: #### L 500.2500, L100.0100 ####[facility] [address] [place], [address] Chloride [Moles/Vol] 100 mmol/L Normal 98-108 [facility] Comment on above: Performed By: #### L 500.2500, L100.0100 ####[facility] [address] [place], [address] CO2 [Moles/Vol] 24.0 mmol/L Normal 21.0-32.0 [facility] Comment on above: Performed By: #### L 500.2500, L100.0100 ####[facility] [address] [place], [address] Creatinine [Mass/Vol] 1.02 mg/dL Normal 0.70-1.20 [facility] Comment on above: Performed By: #### L 500.2500, L100.0100 ####[facility] [address] [place], [address] ECRCL 46.75 ml/min Low 50-250 [facility] Comment on above: Performed By: #### L 500.2500, L100.0100 ####[facility] [address] [place], [address] GAP 12 Normal 5-15 [facility] Comment on above: Performed By: #### L 500.2500, L100.0100 ####[facility] [address] [place], [address] GFR/1.73 sq M.predicted among non-blacks MDRD (S/P/Bld) [Vol rate/Area] 55 mL/min/{1.73_m2} Low >60 [facility] Comment on above: Result Comment: mL/m in/1.73m2 CKD-EPI Creatinine Equation (2020) Performed By: #### L 500.2500, L100.0100 ####[facility] [address] [place], [address] Glucose [Mass/Vol] 119 mg/dL High 70-99 [facility] Comment on above: Performed By: #### L 500.2500, L100.0100 ####[facility] [address] [place], [address] Potassium [Moles/Vol] 3.7 mmol/L Normal 3.3-5.1 [facility] Comment on above: Performed By: #### L 500.2500, L100.0100 ####[facility] [address] [place], [address] Sodium [Moles/Vol] 135 mmol/L Normal 133-145 [facility] Comment on above: Performed By: #### L 500.2500, L100.0100 ####[facility] [address] [place], [address] Urea nitrogen [Mass/Vol] 12 mg/dL Normal 4-19 [facility] Comment on above: Performed By: #### L 500.2500, L100.0100 ####[facility] [address] [place], [place], [address] Basophil percentageOrdered B y: Dago Emery on 11-24-2024 Basophils/100 WBC (Bld) 0.5 % 0-1 [facility] Blood manual differential co mment interpretation (narrative result)Ordered By: Dago Emery on 11-24-2024 Manual differential comment Jack (Bld) [Interp] SCANNED [facility] CBC W/Diff, Automatedon Anisocytosis Ql (Bld) 2+ Normal [facility] Comment on above: Performed By: #### L 500.2500, L100.0100 ####[facility] [address] [place], [place], [address] SMEAR COMMENT SCANNED Normal [facility] Comment on above: Performed By: #### L 500.2500, L100.0100 ####[facility] [address] [place], [place], [address] Carbon dioxide, total [Moles /volume] in Central venous bloodOrdered By: Dago Rupert on 11-24-2024 CO2 [Moles/Vol] 24.0 mmol/L 21.0-32.0 [facility] Chloride assayOrdered By: Jorge Emery on 11-24-2024 Chloride [Moles/Vol] 100 mmol/L 98-108 [facility] Eosinophil percentageOrdered By: Dago Emery on 11-24-2024 Eosinophils/100 WBC (Bld) 2.2 % 0-5 [facility] Erythrocyte distribution wid th ratioOrdered By: Dago Emery on 11-24-2024 Erythrocyte distribution width (RBC) [Ratio] 16.9 % High 11.6-14.6 [facility] Erythrocyte distribution wid th standard deviationOrdered By: Dago Rupert on 11-24-2024 Erythrocyte distribution width (RBC) [Ratio] 70.3 fl High 35.1-43.9 [facility] Glomerular filtration rate ( GFR) estimation/1.73 sq m using serum, plasma, or whole bOrdered By: Dago Emery on 11-24-2024 GFR/1.73 sq M.predicted among non-blacks MDRD (S/P/Bld) [Vol rate/Area] 55 mL/min/{1.73_m2} Low >60 [facility] Comment on above: mL/min/1.73m2 CKD-EP I Creatinine Equation (2020) Hematocrit Auto (Bld) [Volum e fraction]Ordered By: Dago Emery on 11-24-2024 Hematocrit (Bld) [Volume fraction] 30.7 % Low 37-47 [facility] Hemoglobin measurementOrdere d By: Dago Emery on 11-24-2024 Hemoglobin (Bld) [Mass/Vol] 10.3 g/dL Low 12.0-15.0 [facility] Immature granulocytes/100 WB C Auto (Bld)Ordered By: Dago Emery 11-24-2024 Immature granulocytes/100 WBC (Bld) 0.500 % 0.0-0.9 [facility] Comment on above: IG% - Immature Granu locytes (promyelocytes, myelocytes and metamyelocytes) > 1% indicates that a LEFT SHIFT is Present. Laboratory - Hematology and Cell countsOrdered By: Dago Emery on 11-24-2024 Anisocytosis Ql (Bld) 2+ [facility] MCV (mean corpuscular volume ) determinationOrdered By: Dago Emery 11-24-2024 MCV (RBC) [Entitic vol] 115.0 fL High 81-99 [facility] Mean corpuscular hemoglobin (MCH) determinationOrdered By: Dago Emery 11-24-2024 MCH (RBC) [Entitic mass] 38.6 pg High 27.0-32.0 [facility] Mean corpuscular hemoglobin concentration (MCHC) determinationOrdered By: Dago Emery 11-24-2024 MCHC (RBC) [Mass/Vol] 33.6 g/dL 32-36 [facility] Mean platelet volume determi nationOrdered By: Dago Emery 11-24-2024 Platelet mean volume (Bld) [Entitic vol] 10.0 fL 6.2-12.0 [facility] Monocyte percentageOrdered B y: Dago Emery on 11-24-2024 Monocytes/100 WBC (Bld) 5.3 % 0-10 [facility] Neutrophil percentageOrdered By: Dago Emery 11-24-2024 Neutrophils/100 WBC (Bld) 64.5 % 47-70 [facility] No Panel InformationOrdered By: Dago Emery on 11-24-2024 2+ [facility] Nucleated red blood cell per centageOrdered By: Dago Emery on 11-24-2024 Nucleated RBC/100 WBC (Bld) [Ratio] 0 % 0-5 [facility] Platelet countOrdered By: Jorge Emery on 11-24-2024 Platelets (Bld) [#/Vol] 239 10*3/uL 150-450 [facility] Potassium measurement (mass/ volume)Ordered By: Dago Emery on 11-24-2024 Potassium (Unsp spec) [Mass/Vol] 3.7 mmol/L 3.3-5.1 [facility] RBC Auto (Bld) [#/Vol]Ordere d By: Dago Emery on 11-24-2024 RBC (Bld) [#/Vol] 2.67 10*6/uL Low 4.2-5.4 [facility] Serum creatinine measurement (mass/volume)Ordered By: Dago Emery on 11-24-2024 Creatinine [Mass/Vol] 1.02 mg/dL 0.70-1.20 [facility] Serum glucose measurement (m ass/volume)Ordered By: Dago Emery on 11-24-2024 Glucose [Mass/Vol] 119 mg/dL High 70-99 [facility] Serum or plasma calcium niels urement (mass/volume)Ordered By: Dago Emery on 11-24-2024 Calcium [Mass/Vol] 9.0 mg/dL 7.6-11.0 [facility] Serum or plasma urea nitroge n measurement (mass/volume)Ordered By: Dago Emery on 11-24-2024 Urea nitrogen [Mass/Vol] 12 mg/dL 4-19 [facility] Sodium levelOrdered By: Dago Emery on 11-24-2024 Sodium [Moles/Vol] 135 mmol/L 133-145 [facility] White blood cell (WBC) count Ordered By: Dago Emery on 11-24-2024 WBC (Bld) [#/Vol] 4.2 10*3/uL Low 4.4-11.0 [facility] Basic Metabolic Profile (BMP )on 11-17-2024 BUN/CRE 14.3 RATIO Normal 10-20 [facility] Comment on above: Performed By: #### L 100.0100, L500.2500 ####[facility] [address] [place], [address] Calcium [Mass/Vol] 8.9 mg/dL Normal 7.6-11.0 [facility] Comment on above: Performed By: #### L 100.0100, L500.2500 ####[facility] [address] [place], [address] Chloride [Moles/Vol] 101 mmol/L Normal 98-108 [facility] Comment on above: Performed By: #### L 100.0100, L500.2500 ####[facility] [address] [place], [address] CO2 [Moles/Vol] 23.8 mmol/L Normal 21.0-32.0 [facility] Comment on above: Performed By: #### L 100.0100, L500.2500 ####[facility] [address] [place], [address] Creatinine [Mass/Vol] 1.02 mg/dL Normal 0.70-1.20 [facility] Comment on above: Performed By: #### L 100.0100, L500.2500 ####[facility] [address] [place], [address] ECRCL 47.80 ml/min Low 50-250 [facility] Comment on above: Performed By: #### L 100.0100, L500.2500 ####[facility] [address] [place], [address] GAP 11 Normal 5-15 [facility] Comment on above: Performed By: #### L 100.0100, L500.2500 ####[facility] [address] [place], [address] GFR/1.73 sq M.predicted among non-blacks MDRD (S/P/Bld) [Vol rate/Area] 55 mL/min/{1.73_m2} Low >60 [facility] Comment on above: Result Comment: mL/m in/1.73m2 CKD-EPI Creatinine Equation (2020) Performed By: #### L 100.0100, L500.2500 ####[facility] [address] [place], [address] Glucose [Mass/Vol] 82 mg/dL Normal 70-99 [facility] Comment on above: Performed By: #### L 100.0100, L500.2500 ####[facility] [address] [place], [address] Potassium [Moles/Vol] 3.8 mmol/L Normal 3.3-5.1 [facility] Comment on above: Performed By: #### L 100.0100, L500.2500 ####[facility] [address] [place], [address] Sodium [Moles/Vol] 136 mmol/L Normal 133-145 [facility] Comment on above: Performed By: #### L 100.0100, L500.2500 ####[facility] [address] [place], [address] Urea nitrogen [Mass/Vol] 15 mg/dL Normal 4-19 [facility] Comment on above: Performed By: #### L 100.0100, L500.2500 ####[facility] [address] [place], [address] CBC W/Diff, Automatedon 10-21 Anisocytosis Ql (Bld) 1+ Normal [facility] Comment on above: Performed By: #### L 100.0100, L500.2500 ####[facility] [address] [place], [address] HH, Hemoglobin AND Hematocri ton 11-15-2024 Hematocrit (Bld) [Volume fraction] 26.1 % Low [address] [place] [address] Comment on above: Performed By: #### L 100.0600 ####[facility] [address] [place], [address] Hemoglobin (Bld) [Mass/Vol] 8.8 g/dL Low 12.0-15.0 [facility] Comment on above: Performed By: #### L 100.0600 ####[facility] [address] [place], [address] COVID 19 AG RAPID (RN COLLEC T)on 11-13-2024 SARS-CoV-2 (COVID-19) RNA JANY+probe Ql (Unsp spec) Normal [facility] Comment on above: Performed By: #### M 100.505 ####[facility] [address] [place], [address] COVID-19 virus antigen assay Ordered By: Dago Emery on 11-13-2024 SARS-CoV-2 (COVID-19) Ag IA.rapid Ql (Resp) [facility] HH, Hemoglobin AND Hematocri ton 11-13-2024 Hematocrit (Bld) [Volume fraction] 25.3 % Low [address] [place] [address] Comment on above: Performed By: #### L 100.0600 ####[facility] [address] [place], [address] Hemoglobin (Bld) [Mass/Vol] 8.6 g/dL Low 12.0-15.0 [facility] Comment on above: Performed By: #### L 100.0600 ####[facility] [address] [place], [address] COVID 19 AG RAPID (RN COLLEC T)on 11-11-2024 SARS-CoV-2 (COVID-19) RNA JANY+probe Ql (Unsp spec) Normal [facility] Comment on above: Performed By: #### M 100.505 ####[facility] [address] [place], [address] COVID-19 virus antigen assay Ordered By: Dago Emery on 11-11-2024 SARS-CoV-2 (COVID-19) Ag rapid Ql (Resp) [facility] Basic Metabolic Profile (BMP )on 11-10-2024 BUN/CRE 13.9 RATIO Normal 10-20 [facility] Comment on above: Performed By: #### L 500.2500, L100.0100 ####[facility] [address] [place], [address] Calcium [Mass/Vol] 8.5 mg/dL Normal 7.6-11.0 [facility] Comment on above: Performed By: #### L 500.2500, L100.0100 ####[facility] [address] [place], [address] Chloride [Moles/Vol] 102 mmol/L Normal 98-108 [facility] Comment on above: Performed By: #### L 500.2500, L100.0100 ####[facility] [address] [place], [address] CO2 [Moles/Vol] 25.0 mmol/L Normal 21.0-32.0 [facility] Comment on above: Performed By: #### L 500.2500, L100.0100 ####[facility] [address] [place], [address] Creatinine [Mass/Vol] 0.90 mg/dL Normal 0.70-1.20 [facility] Comment on above: Performed By: #### L 500.2500, L100.0100 ####[facility] [address] [place], [address] ECRCL 54.17 ml/min Normal 50-250 [facility] Comment on above: Performed By: #### L 500.2500, L100.0100 ####[facility] [address] [place], [address] GAP 11 Normal 5-15 [facility] Comment on above: Performed By: #### L 500.2500, L100.0100 ####[facility] [address] [place], [address] GFR/1.73 sq M.predicted among non-blacks MDRD (S/P/Bld) [Vol rate/Area] 64 mL/min/{1.73_m2} Normal >60 [facility] Comment on above: Result Comment: mL/m in/1.73m2 CKD-EPI Creatinine Equation (2020) Performed By: #### L 500.2500, L100.0100 ####[facility] [address] [place], [address] Glucose [Mass/Vol] 82 mg/dL Normal 70-99 [facility] Comment on above: Performed By: #### L 500.2500, L100.0100 ####[facility] [address] [place], [address] Potassium [Moles/Vol] 3.7 mmol/L Normal 3.3-5.1 [facility] Comment on above: Performed By: #### L 500.2500, L100.0100 ####[facility] [address] [place], [address] Sodium [Moles/Vol] 138 mmol/L Normal 133-145 [facility] Comment on above: Performed By: #### L 500.2500, L100.0100 ####[facility] [address] [place], [address] Urea nitrogen [Mass/Vol] 13 mg/dL Normal 4-19 [facility] Comment on above: Performed By: #### L 500.2500, L100.0100 ####[facility] [address] [place], [address] Blood polychromasia detectio n by light microscopyOrdered By: Dago Emery on 11-10-2024 Polychromasia LM Ql (Bld) 1+ [facility] CBC W/Diff, Automatedon 10-21 POLYCHROMASIA 1+ Normal [facility] Comment on above: Performed By: #### L 500.2500, L100.0100 ####[facility] [address] [place], [address] Anisocytosis Ql (Bld) 2+ Normal [facility] Comment on above: Performed By: #### L 500.2500, L100.0100 ####[facility] [address] [place], [place], [id number] PLT EST ADEQUATE Normal ADEQ [facility] Comment on above: Performed By: #### L 500.2500, L100.0100 ####[facility] [address] [place], [place], [id number] Platelet estimateOrdered By: Dago Emery on 11-10-2024 Platelets LM Ql (Bld) ADEQUATE ADEQ [facility] COVID 19 AG RAPID (DOUGLAS Devine)on 11-09-2024 SARS-CoV-2 (COVID-19) RNA JANY+probe Ql (Unsp spec) Normal [facility] Comment on above: Performed By: #### M 100.505 ####[facility] [address] [place], [place], [id number] COVID-19 virus antigen assay Ordered By: Dago Emery on 11-09-2024 SARS-CoV-2 (COVID-19) Ag IA.rapid Ql (Resp) [facility] Ankle min 3 Viewson 11-04-19 25 Ankle min 3 Views Normal [facility] Basic Metabolic Profile (BMP )on 11-03-2024 BUN/CRE 15.7 RATIO Normal 10-20 [facility] Comment on above: Performed By: #### L 500.2500, L100.0100 ####[facility] [address] [place], [address] Calcium [Mass/Vol] 8.8 mg/dL Normal 7.6-11.0 [facility] Comment on above: Performed By: #### L 500.2500, L100.0100 ####[facility] [address] [place], [address] Chloride [Moles/Vol] 101 mmol/L Normal 98-108 [facility] Comment on above: Performed By: #### L 500.2500, L100.0100 ####[facility] [address] [place], [address] CO2 [Moles/Vol] 22.1 mmol/L Normal 21.0-32.0 [facility] Comment on above: Performed By: #### L 500.2500, L100.0100 ####[facility] [address] [place], [address] Creatinine [Mass/Vol] 1.16 mg/dL Normal 0.70-1.20 [facility] Comment on above: Performed By: #### L 500.2500, L100.0100 ####[facility] [address] [place], [address] ECRCL 42.03 ml/min Low 50-250 [facility] Comment on above: Performed By: #### L 500.2500, L100.0100 ####[facility] [address] [place], [address] GAP 11 Normal 5-15 [facility] Comment on above: Performed By: #### L 500.2500, L100.0100 ####[facility] [address] [place], [address] GFR/1.73 sq M.predicted among non-blacks MDRD (S/P/Bld) [Vol rate/Area] 47 mL/min/{1.73_m2} Low >60 [facility] Comment on above: Result Comment: mL/m in/1.73m2 CKD-EPI Creatinine Equation (2020) Performed By: #### L 500.2500, L100.0100 ####[facility] [address] [place], [address] Glucose [Mass/Vol] 88 mg/dL Normal 70-99 [facility] Comment on above: Performed By: #### L 500.2500, L100.0100 ####[facility] [address] [place], [address] Potassium [Moles/Vol] 4.0 mmol/L Normal 3.3-5.1 [facility] Comment on above: Performed By: #### L 500.2500, L100.0100 ####[facility] [address] [place], [address] Sodium [Moles/Vol] 134 mmol/L Normal 133-145 [facility] Comment on above: Performed By: #### L 500.2500, L100.0100 ####[facility] [address] [place], [address] Urea nitrogen [Mass/Vol] 18 mg/dL Normal 4-19 [facility] Comment on above: Performed By: #### L 500.2500, L100.0100 ####[facility] [address] [place], [address] CBC W/Diff, Automatedon 10-20 Anisocytosis Ql (Bld) 2+ Normal [facility] Comment on above: Performed By: #### L 500.2500, L100.0100 ####[facility] [address] [place], [address] MACROCYTOSIS 2+ Normal [facility] Comment on above: Performed By: #### L 500.2500, L100.0100 ####[facility] [address] [place], [address] POLYCHROMASIA RARE Normal [facility] Comment on above: Performed By: #### L 500.2500, L100.0100 ####[facility] [address] [place], [address] RED CELL MORPH N CHROM Normal NORM C C [facility] Comment on above: Performed By: #### L 500.2500, L100.0100 ####[facility] [address] [place], [address] SMEAR COMMENT SCANNED Normal [facility] Comment on above: Performed By: #### L 500.2500, L100.0100 ####[facility] [address] [place], [address] Erythrocyte morphology asses smentOrdered By: Dago Emery on 11-03-2024 RBC morphology finding Nom (Bld) N CHROM NORMAL NORM C&C [facility] Macrocytes detectionOrdered By: Dago Emery on 11-03-2024 Macrocytes Ql (Bld) 2+ [facility] EGD Reporton 11-01-2024 EGD Report Normal [facility] Immunohistochemical Stainson 11-01-2024 Immunohistochemical Stains Normal [facility] Comment on above: Performed By: #### P IMHI ####[facility] [address] [place], [address] MR/OP.PROVATon 11-01-2024 MR/OP.PROVAT Normal [facility] MR/POSTOP.ANEon 11-01-2024 MR/POSTOP.ANE Normal [facility] MR/BMABYPHK2vq 11-01-2024 MR/POSTOPAN2 Normal [facility] Ankle min 3 Viewson 11-01-19 25 Ankle min 3 Views [facility] HH, Hemoglobin AND Hematocri ton 10-31-2024 Hematocrit (Bld) [Volume fraction] 24.8 % Low 37-47 [facility] Comment on above: Performed By: #### L 100.0600 ####[facility] [address] [place], [place], [phone] Hemoglobin (Bld) [Mass/Vol] 8.4 g/dL Low 12.0-15.0 [facility] Comment on above: Performed By: #### L 100.0600 ####[facility] [address] [place], [address] Hematocrit Auto (Bld) [Volum e fraction]Ordered By: Dago Emery on 10-31-2024 Hematocrit (Bld) [Volume fraction] 24.8 % Low 37-47 [facility] Hemoglobin measurementOrdere d By: Dago Emery on 10-31-2024 Hemoglobin (Bld) [Mass/Vol] 8.4 g/dL Low 12.0-15.0 [facility] Knee 1 or 2 Viewson 11-01-19 25 Knee 1 or 2 Views Normal [facility] MR/CON.PCM.GIon 10-31-2024 MR/CON.PCM.GI Normal [facility] Stool Occult Blood iFOBon STOB Positive Normal [facility] Comment on above: Performed By: #### M 100.7900 ####[facility] [address] [place], [address] Stool gastrointestinal hemog lobin detection by immunologic methodOrdered By: Dago Emery on 10-31-2024 Lower GI hemoglobin IA Ql (Stl) Positive Abnormal [facility] HH, Hemoglobin AND Hematocri ton 10-30-2024 Hematocrit (Bld) [Volume fraction] 24.1 % Low 37-[address] [place] [address] Comment on above: Performed By: #### L 100.0600 ####[facility] [address] [place], [address]( Hemoglobin (Bld) [Mass/Vol] 7.9 g/dL Low 12.0-15.0 [facility] Comment on above: Performed By: #### L 100.0600 ####[facility] [address] [place], [address](131) HH, Hemoglobin AND Hematocri ton 10-28-2024 Hematocrit (Bld) [Volume fraction] 25.0 % Low 37-47 [facility] Comment on above: Performed By: #### L 100.0600 ####[facility] [address] [place], [place], [phone] Hemoglobin (Bld) [Mass/Vol] 8.3 g/dL Low 12.0-15.0 [facility] Comment on above: Performed By: #### L 100.0600 ####[facility] [address] [place], [address] Absolute lymphocyte countOrd ered By: Dago Emery on 10-27-2024 Lymphocytes Auto (Unsp spec) [#/Vol] 1.30 10*3/uL 0.83-4.51 [facility] Absolute neutrophil countOrd ered By: Dago Emery on 10-27-2024 Neutrophils (Bld) [#/Vol] 2.7 10*3/uL 2.0-7.7 [facility] Anion gap in Serum or Plasma Ordered By: Dago Emery on 10-27-2024 Anion gap [Moles/Vol] 10 mmol/L 5-15 [facility] Automated lymphocyte count a s percentage of total leukocytesOrdered By: Dago Emery on 10-27-2024 Lymphocytes/100 WBC Auto (Unsp spec) 27.7 % 19-41 [facility] BUN/creatinine ratioOrdered By: Dago Emery on 10-27-2024 Urea nitrogen/Creatinine [Mass ratio] 24.5 mg/mg High 10-20 [facility] Basic Metabolic Profile (BMP )on 10-27-2024 BUN/CRE 24.5 RATIO High 10-20 [facility] Comment on above: Performed By: #### L 500.2500, L100.0100 ####[facility] [address] [place], [address] Calcium [Mass/Vol] 8.8 mg/dL Normal 7.6-11.0 [facility] Comment on above: Performed By: #### L 500.2500, L100.0100 ####[facility] [address] [place], [address] Chloride [Moles/Vol] 100 mmol/L Normal 98-108 [facility] Comment on above: Performed By: #### L 500.2500, L100.0100 ####[facility] [address] [place], [address] CO2 [Moles/Vol] 22.3 mmol/L Normal 21.0-32.0 [facility] Comment on above: Performed By: #### L 500.2500, L100.0100 ####[facility] [address] [place], [address] Creatinine [Mass/Vol] 1.16 mg/dL Normal 0.70-1.20 [facility] Comment on above: Performed By: #### L 500.2500, L100.0100 ####[facility] [address] [place], [address] ECRCL 42.03 ml/min Low 50-250 [facility] Comment on above: Performed By: #### L 500.2500, L100.0100 ####[facility] [address] [place], [address] GAP 10 Normal 5-15 [facility] Comment on above: Performed By: #### L 500.2500, L100.0100 ####[facility] [address] [place], [address] GFR/1.73 sq M.predicted among non-blacks MDRD (S/P/Bld) [Vol rate/Area] 47 mL/min/{1.73_m2} Low >60 [facility] Comment on above: Result Comment: mL/m in/1.73m2 CKD-EPI Creatinine Equation (2020) Performed By: #### L 500.2500, L100.0100 ####[facility] [address] [place], [address] Glucose [Mass/Vol] 85 mg/dL Normal 70-99 [facility] Comment on above: Performed By: #### L 500.2500, L100.0100 ####[facility] [address] [place], [address] Potassium [Moles/Vol] 4.5 mmol/L Normal 3.3-5.1 [facility] Comment on above: Performed By: #### L 500.2500, L100.0100 ####[facility] [address] [place], [address] Sodium [Moles/Vol] 133 mmol/L Normal 133-145 [facility] Comment on above: Performed By: #### L 500.2500, L100.0100 ####[facility] [address] [place], [address] Urea nitrogen [Mass/Vol] 28 mg/dL High 4-19 [facility] Comment on above: Performed By: #### L 500.2500, L100.0100 ####[facility] [address] [place], [address] Basophil percentageOrdered B y: Dago Emery on 10-27-2024 Basophils/100 WBC (Bld) 0.4 % 0-1 [facility] Blood polychromasia detectio n by light microscopyOrdered By: Dago Emery on 10-27-2024 Polychromasia LM Ql (Bld) RARE [facility] CBC W/Diff, Automatedon 08-0 Anisocytosis Ql (Bld) 2+ Normal [facility] Comment on above: Performed By: #### L 500.2500, L100.0100 ####[facility] [address] [place], [address] POLYCHROMASIA RARE Normal [facility] Comment on above: Performed By: #### L 500.2500, L100.0100 ####[facility] [address] [place], [address] RED CELL MORPH NORM C+C Normal NORM C C [facility] Comment on above: Performed By: #### L 500.2500, L100.0100 ####[facility] [address] [place], [address] Carbon dioxide, total [Moles /volume] in Central venous bloodOrdered By: Dago Emery on 10-27-2024 CO2 [Moles/Vol] 22.3 mmol/L 21.0-32.0 [facility] Chloride assayOrdered By: Jorge Emery on 10-27-2024 Chloride [Moles/Vol] 100 mmol/L 98-108 [facility] Eosinophil percentageOrdered By: Dago Emery on 10-27-2024 Eosinophils/100 WBC (Bld) 3.0 % 0-5 [facility] Erythrocyte distribution wid th ratioOrdered By: Dago Emery on 10-27-2024 Erythrocyte distribution width (RBC) [Ratio] 15.9 % High 11.6-14.6 [facility] Erythrocyte distribution wid th standard deviationOrdered By: Dago Emery on 10-27-2024 Erythrocyte distribution width (RBC) [Ratio] 65.3 fl High 35.1-43.9 [facility] Erythrocyte morphology asses smentOrdered By: Dago Emery on 10-27-2024 RBC morphology finding Nom (Bld) NORM C+C NORMAL NORM C&C [facility] Glomerular filtration rate ( GFR) estimation/1.73 sq m using serum, plasma, or whole bOrdered By: Dago Emery on 10-27-2024 GFR/1.73 sq M.predicted among non-blacks MDRD (S/P/Bld) [Vol rate/Area] 47 mL/min/{1.73_m2} Low >60 [facility] Comment on above: mL/min/1.73m2 CKD-EP I Creatinine Equation (2020) Immature granulocytes/100 WB C Auto (Bld)Ordered By: Dago Emery on 10-27-2024 Immature granulocytes/100 WBC (Bld) 1.500 % High 0.0-0.9 [facility] Comment on above: IG% - Immature Granu locytes (promyelocytes, myelocytes and metamyelocytes) > 1% indicates that a LEFT SHIFT is Present. Laboratory - Hematology and Cell countsOrdered By: Dago Emery on 10-27-2024 Anisocytosis Ql (Bld) 2+ [facility] MCV (mean corpuscular volume ) determinationOrdered By: Dago Emery on 10-27-2024 MCV (RBC) [Entitic vol] 113.4 fL High 81-99 [facility] Mean corpuscular hemoglobin (MCH) determinationOrdered By: Dago Emery 10-27-2024 MCH (RBC) [Entitic mass] 37.0 pg High 27.0-32.0 [facility] Mean corpuscular hemoglobin concentration (MCHC) determinationOrdered By: Dago Emery 10-27-2024 MCHC (RBC) [Mass/Vol] 32.7 g/dL 32-36 [facility] Mean platelet volume determi nationOrdered By: Dago Emery on 10-27-2024 Platelet mean volume (Bld) [Entitic vol] 9.9 fL 6.2-12.0 [facility] Monocyte percentageOrdered B y: Dago Emery on 10-27-2024 Monocytes/100 WBC (Bld) 10.6 % High 0-10 [facility] Neutrophil percentageOrdered By: Dago Emery 10-27-2024 Neutrophils/100 WBC (Bld) 56.8 % 47-70 [facility] Nucleated red blood cell per centageOrdered By: Dago Emery 10-27-2024 Nucleated RBC/100 WBC (Bld) [Ratio] 0 % 0-5 [facility] Platelet countOrdered By: Jorge Emery on 10-27-2024 Platelets (Bld) [#/Vol] 230 10*3/uL 150-450 [facility] Potassium measurement (mass/ volume)Ordered By: Dago Emery on 10-27-2024 Potassium (Unsp spec) [Mass/Vol] 4.5 mmol/L 3.3-5.1 [facility] RBC Auto (Bld) [#/Vol]Ordere d By: Dago Emery on 10-27-2024 RBC (Bld) [#/Vol] 2.16 10*6/uL Low 4.2-5.4 [facility] Serum creatinine measurement (mass/volume)Ordered By: Dago Emery on 10-27-2024 Creatinine [Mass/Vol] 1.16 mg/dL 0.70-1.20 [facility] Serum glucose measurement (m ass/volume)Ordered By: Dago Emery on 10-27-2024 Glucose [Mass/Vol] 85 mg/dL 70-99 [facility] Serum or plasma calcium niels urement (mass/volume)Ordered By: Dago Emery on 10-27-2024 Calcium [Mass/Vol] 8.8 mg/dL 7.6-11.0 [facility] Serum or plasma urea nitroge n measurement (mass/volume)Ordered By: Dago Emery on 10-27-2024 Urea nitrogen [Mass/Vol] 28 mg/dL High 4-19 [facility] Sodium levelOrdered By: Dago Emery on 10-27-2024 Sodium [Moles/Vol] 133 mmol/L 133-145 [facility] White blood cell (WBC) count Ordered By: Dago Emery on 10-27-2024 WBC (Bld) [#/Vol] 4.7 10*3/uL 4.4-11.0 [facility] Basic Metabolic Profile (BMP )on 10-22-2024 BUN/CRE 26.3 RATIO High 10-20 [facility] Comment on above: Performed By: #### L 500.2500, L100.0100 ####[facility] [address] [place], [address] Calcium [Mass/Vol] 8.9 mg/dL Normal 7.6-11.0 [facility] Comment on above: Performed By: #### L 500.2500, L100.0100 ####[facility] [address] [place], [address] Chloride [Moles/Vol] 103 mmol/L Normal 98-108 [facility] Comment on above: Performed By: #### L 500.2500, L100.0100 ####[facility] [address] [place], [address] CO2 [Moles/Vol] 22.0 mmol/L Normal 21.0-32.0 [facility] Comment on above: Performed By: #### L 500.2500, L100.0100 ####[facility] [address] [place], [address] Creatinine [Mass/Vol] 0.84 mg/dL Normal 0.70-1.20 [facility] Comment on above: Performed By: #### L 500.2500, L100.0100 ####[facility] [address] [place], [address] ECRCL 57.97 ml/min Normal 50-250 [facility] Comment on above: Performed By: #### L 500.2500, L100.0100 ####[facility] [address] [place], [address] GAP 10 Normal 5-15 [facility] Comment on above: Performed By: #### L 500.2500, L100.0100 ####[facility] [address] [place], [address] GFR/1.73 sq M.predicted among non-blacks MDRD (S/P/Bld) [Vol rate/Area] 70 mL/min/{1.73_m2} Normal >60 [facility] Comment on above: Result Comment: mL/m in/1.73m2 CKD-EPI Creatinine Equation (2020) Performed By: #### L 500.2500, L100.0100 ####[facility] [address] [place], [address] Glucose [Mass/Vol] 94 mg/dL Normal 70-99 [facility] Comment on above: Performed By: #### L 500.2500, L100.0100 ####[facility] [address] [place], [address] Potassium [Moles/Vol] 4.0 mmol/L Normal 3.3-5.1 [facility] Comment on above: Performed By: #### L 500.2500, L100.0100 ####[facility] [address] [place], [address] Sodium [Moles/Vol] 135 mmol/L Normal 133-145 [facility] Comment on above: Performed By: #### L 500.2500, L100.0100 ####[facility] [address] [place], [address] Urea nitrogen [Mass/Vol] 22 mg/dL High 4-19 [facility] Comment on above: Performed By: #### L 500.2500, L100.0100 ####[facility] [address] [place], [address] CBC W/Diff, Automatedon 08-0 3-2025 Absolute Lymph 1.22 X10 3/uL Normal 0.83-4.51 [facility] Comment on above: Performed By: #### L 500.2500, L100.0100 ####[facility] [address] [place], [address] Absolute Neut 3.2 X10 3/uL Normal 2.0-7.7 [facility] Comment on above: Performed By: #### L 500.2500, L100.0100 ####[facility] [address] [place], [address] Basophils/100 WBC (Bld) 0.6 % Normal 0-1 [facility] Comment on above: Performed By: #### L 500.2500, L100.0100 ####[facility] [address] [place], [address] Eosinophils/100 WBC (Bld) 1.6 % Normal 0-5 [facility] Comment on above: Performed By: #### L 500.2500, L100.0100 ####[facility] [address] [place], [address] Erythrocyte distribution width (RBC) [Ratio] 15.7 % High 11.6-14.6 [facility] Comment on above: Performed By: #### L 500.2500, L100.0100 ####[facility] [address] [place], [address] Hematocrit (Bld) [Volume fraction] 26.6 % Low 37-47 [facility] Comment on above: Performed By: #### L 500.2500, L100.0100 ####[facility] [address] [place], [address] Hemoglobin (Bld) [Mass/Vol] 8.8 g/dL Low 12.0-15.0 [facility] Comment on above: Performed By: #### L 500.2500, L100.0100 ####[facility] [address] [place], [address] IG% 0.600 Normal 0.0-0.9 [facility] Comment on above: Result Comment: IG% - Immature Granulocytes (promyelocytes, myelocytes andmetamyelocytes) > 1% indicates that a LEFT SHIFT is Present. Performed By: #### L 500.2500, L100.0100 ####[facility] [address] [place], [address] Lymphocytes/100 WBC (Bld) 24.1 % Normal 19-41 [facility] Comment on above: Performed By: #### L 500.2500, L100.0100 ####[facility] [address] [place], [address] MCH (RBC) [Entitic mass] 37.0 pg High 27.0-32.0 [facility] Comment on above: Performed By: #### L 500.2500, L100.0100 ####[facility] [address] [place], [address] MCHC (RBC) [Mass/Vol] 33.1 g/dL Normal 32-36 [facility] Comment on above: Performed By: #### L 500.2500, L100.0100 ####[facility] [address] [place], [address] MCV (RBC) [Entitic vol] 111.8 fL High 81-99 [facility] Comment on above: Performed By: #### L 500.2500, L100.0100 ####[facility] [address] [place], [address] Monocytes/100 WBC (Bld) 10.1 % High 0-10 [facility] Comment on above: Performed By: #### L 500.2500, L100.0100 ####[facility] [address] [place], [address] Neutrophils/100 WBC (Bld) 63.0 % Normal 47-70 [facility] Comment on above: Performed By: #### L 500.2500, L100.0100 ####[facility] [address] [place], [address] Nucleated RBC (Bld) [#/Vol] 0 10*3/uL Normal 0-5 [facility] Comment on above: Performed By: #### L 500.2500, L100.0100 ####[facility] [address] [place], [address] Platelet mean volume (Bld) [Entitic vol] 10.4 fL Normal 6.2-12.0 [facility] Comment on above: Performed By: #### L 500.2500, L100.0100 ####[facility] [address] [place], [address] Platelets (Bld) [#/Vol] 248 10*3/uL Normal 150-450 [facility] Comment on above: Performed By: #### L 500.2500, L100.0100 ####[facility] [address] [place], [address] RBC (Bld) [#/Vol] 2.38 10*6/uL Low 4.2-5.4 [facility] Comment on above: Performed By: #### L 500.2500, L100.0100 ####[facility] [address] [place], [address] RDW SD 64.2 fl High 35.1-43.9 [facility] Comment on above: Performed By: #### L 500.2500, L100.0100 ####[facility] [address] [place], [address] WBC (Bld) [#/Vol] 5.1 10*3/uL Normal 4.4-11.0 [facility] Comment on above: Performed By: #### L 500.2500, L100.0100 ####[facility] [address] [place], [address] Absolute lymphocyte countOrd ered By: Nela Wallace on 10-21-2024 Lymphocytes Auto (Unsp spec) [#/Vol] 1.47 10*3/uL 0.83-4.51 [facility] Absolute neutrophil countOrd ered By: Nela Wallace on 10-21-2024 Neutrophils (Bld) [#/Vol] 3.0 10*3/uL 2.0-7.7 [facility] Anion gap in Serum or Plasma Ordered By: Nela Wallace on 10-21-2024 Anion gap [Moles/Vol] 10 mmol/L 5-15 [facility] Automated lymphocyte count a s percentage of total leukocytesOrdered By: Nela Wallace on 10-21-2024 Lymphocytes/100 WBC Auto (Unsp spec) 27.2 % -41 [facility] BUN/creatinine ratioOrdered By: Nela Wallace on 10-21-2024 Urea nitrogen/Creatinine [Mass ratio] 23.7 mg/mg High 10- [facility] Basic Metabolic Profile (BMP )on 10-21-2024 BUN/CRE 23.7 RATIO High 10- [facility] Comment on above: Performed By: #### L 500.2500 ####[facility] [address] [place], [address] Calcium [Mass/Vol] 8.5 mg/dL Normal 7.6-11.0 [facility] Comment on above: Performed By: #### L 500.2500 ####[facility] [address] [place], [address] Chloride [Moles/Vol] 103 mmol/L Normal 98-108 [facility] Comment on above: Performed By: #### L 500.2500 ####[facility] [address] [place], [address] CO2 [Moles/Vol] 21.9 mmol/L Normal 21.0-32.0 [facility] Comment on above: Performed By: #### L 500.2500 ####[facility] [address] [place], [address] Creatinine [Mass/Vol] 1.04 mg/dL Normal 0.70-1.20 [facility] Comment on above: Performed By: #### L 500.2500 ####[facility] [address] [place], [address] ECRCL 45.68 ml/min Low 50-250 [facility] Comment on above: Performed By: #### L 500.2500 ####[facility] [address] [place], [address] GAP 10 Normal 5-15 [facility] Comment on above: Performed By: #### L 500.2500 ####[facility] [address] [place], [address] GFR/1.73 sq M.predicted among non-blacks MDRD (S/P/Bld) [Vol rate/Area] 54 mL/min/{1.73_m2} Low >60 [facility] Comment on above: Result Comment: mL/m in/1.73m2 CKD-EPI Creatinine Equation (2020) Performed By: #### L 500.2500 ####[facility] [address] [place], [address] Glucose [Mass/Vol] 86 mg/dL Normal 70-99 [facility] Comment on above: Performed By: #### L 500.2500 ####[facility] [address] [place], [address] Potassium [Moles/Vol] 3.8 mmol/L Normal 3.3-5.1 [facility] Comment on above: Performed By: #### L 500.2500 ####[facility] [address] [place], [address] Sodium [Moles/Vol] 135 mmol/L Normal 133-145 [facility] Comment on above: Performed By: #### L 500.2500 ####[facility] [address] [place], [address] Urea nitrogen [Mass/Vol] 25 mg/dL High 4-19 [facility] Comment on above: Performed By: #### L 500.2500 ####[facility] [address] [place], [address] Basophil percentageOrdered B y: Nela Wallace on 10-21-2024 Basophils/100 WBC (Bld) 0.4 % 0-1 [facility] CBC W/Diff, Automatedon 08-0 Absolute Lymph 1.47 X10 3/uL Normal 0.83-4.51 [facility] Comment on above: Performed By: #### L 100.0100 ####[facility] [address] [place], [address] Absolute Neut 3.0 X10 3/uL Normal 2.0-7.7 [facility] Comment on above: Performed By: #### L 100.0100 ####[facility] [address] [place], [address] Basophils/100 WBC (Bld) 0.4 % Normal 0-1 [facility] Comment on above: Performed By: #### L 100.0100 ####[facility] [address] [place], [address] Eosinophils/100 WBC (Bld) 1.9 % Normal 0-5 [facility] Comment on above: Performed By: #### L 100.0100 ####[facility] [address] [place], [address] Erythrocyte distribution width (RBC) [Ratio] 15.8 % High 11.6-14.6 [facility] Comment on above: Performed By: #### L 100.0100 ####[facility] [address] [place], [address] Hematocrit (Bld) [Volume fraction] 25.5 % Low 37-47 [facility] Comment on above: Performed By: #### L 100.0100 ####[facility] [address] [place], [address] Hemoglobin (Bld) [Mass/Vol] 8.7 g/dL Low 12.0-15.0 [facility] Comment on above: Performed By: #### L 100.0100 ####[facility] [address] [place], [address] IG% 0.600 Normal 0.0-0.9 [facility] Comment on above: Result Comment: IG% - Immature Granulocytes (promyelocytes, myelocytes andmetamyelocytes) > 1% indicates that a LEFT SHIFT is Present. Performed By: #### L 100.0100 ####[facility] [address] [place], [address] Lymphocytes/100 WBC (Bld) 27.2 % Normal 19-41 [facility] Comment on above: Performed By: #### L 100.0100 ####[facility] [address] [place], [address] MCH (RBC) [Entitic mass] 37.8 pg High 27.0-32.0 [facility] Comment on above: Performed By: #### L 100.0100 ####[facility] [address] [place], [address] MCHC (RBC) [Mass/Vol] 34.1 g/dL Normal 32-36 [facility] Comment on above: Performed By: #### L 100.0100 ####[facility] [address] [place], [address] MCV (RBC) [Entitic vol] 110.9 fL High 81-99 [facility] Comment on above: Performed By: #### L 100.0100 ####[facility] [address] [place], [address] Monocytes/100 WBC (Bld) 15.2 % High 0-10 [facility] Comment on above: Performed By: #### L 100.0100 ####[facility] [address] [place], [address] Neutrophils/100 WBC (Bld) 54.7 % Normal 47-70 [facility] Comment on above: Performed By: #### L 100.0100 ####[facility] [address] [place], [address] Nucleated RBC (Bld) [#/Vol] 0 10*3/uL Normal 0-5 [facility] Comment on above: Performed By: #### L 100.0100 ####[facility] [address] [place], [address] Platelet mean volume (Bld) [Entitic vol] 10.8 fL Normal 6.2-12.0 [facility] Comment on above: Performed By: #### L 100.0100 ####[facility] [address] [place], [address] Platelets (Bld) [#/Vol] 224 10*3/uL Normal 150-450 [facility] Comment on above: Performed By: #### L 100.0100 ####[facility] [address] [place], [address] RBC (Bld) [#/Vol] 2.30 10*6/uL Low 4.2-5.4 [facility] Comment on above: Performed By: #### L 100.0100 ####[facility] [address] [place], [address] RDW SD 64.2 fl High 35.1-43.9 [facility] Comment on above: Performed By: #### L 100.0100 ####[facility] [address] [place], [address] WBC (Bld) [#/Vol] 5.4 10*3/uL Normal 4.4-11.0 [facility] Comment on above: Performed By: #### L 100.0100 ####[facility] [address] [place], [address] Carbon dioxide, total [Moles /volume] in Central venous bloodOrdered By: Nela Wallace on 10-21-2024 CO2 [Moles/Vol] 21.9 mmol/L 21.0-32.0 [facility] Chloride assayOrdered By: Bharathi Wallace on 10-21-2024 Chloride [Moles/Vol] 103 mmol/L 98-108 [facility] Eosinophil percentageOrdered By: Nela Wallace on 10-21-2024 Eosinophils/100 WBC (Bld) 1.9 % 0-5 [facility] Erythrocyte distribution wid th ratioOrdered By: Nela Wallace on 10-21-2024 Erythrocyte distribution width (RBC) [Ratio] 15.8 % High 11.6-14.6 [facility] Erythrocyte distribution wid th standard deviationOrdered By: Nela Wallace on 10-21-2024 Erythrocyte distribution width (RBC) [Ratio] 64.2 fl High 35.1-43.9 [facility] Glomerular filtration rate ( GFR) estimation/1.73 sq m using serum, plasma, or whole bOrdered By: Nela Wallace on 10-21-2024 GFR/1.73 sq M.predicted among non-blacks MDRD (S/P/Bld) [Vol rate/Area] 54 mL/min/{1.73_m2} Low >60 [facility] Comment on above: mL/min/1.73m2 CKD-EP I Creatinine Equation (2020) Hematocrit Auto (Bld) [Volum e fraction]Ordered By: Nela Wallace on 10-21-2024 Hematocrit (Bld) [Volume fraction] 25.5 % Low 37-47 [facility] Hemoglobin measurementOrdere d By: Nela Wallace on 10-21-2024 Hemoglobin (Bld) [Mass/Vol] 8.7 g/dL Low 12.0-15.0 [facility] Immature granulocytes/100 WB C Auto (Bld)Ordered By: Nela Wallace on 10-21-2024 Immature granulocytes/100 WBC (Bld) 0.600 % 0.0-0.9 [facility] Comment on above: IG% - Immature Granu locytes (promyelocytes, myelocytes and metamyelocytes) > 1% indicates that a LEFT SHIFT is Present. MCV (mean corpuscular volume ) determinationOrdered By: Nela Wallace on 10-21-2024 MCV (RBC) [Entitic vol] 110.9 fL High 81-99 [facility] Mean corpuscular hemoglobin (MCH) determinationOrdered By: Nela Wallace on 10-21-2024 MCH (RBC) [Entitic mass] 37.8 pg High 27.0-32.0 [facility] Mean corpuscular hemoglobin concentration (MCHC) determinationOrdered By: Nela Wallace on 10-21-2024 MCHC (RBC) [Mass/Vol] 34.1 g/dL 32-36 [facility] Mean platelet volume determi nationOrdered By: Nela Wallace on 10-21-2024 Platelet mean volume (Bld) [Entitic vol] 10.8 fL 6.2-12.0 [facility] Monocyte percentageOrdered B y: Nela Wallace on 10-21-2024 Monocytes/100 WBC (Bld) 15.2 % High 0-10 [facility] Neutrophil percentageOrdered By: Nela Wallace on 10-21-2024 Neutrophils/100 WBC (Bld) 54.7 % 47-70 [facility] Nucleated red blood cell per centageOrdered By: Nela Wallace on 10-21-2024 Nucleated RBC/100 WBC (Bld) [Ratio] 0 % 0-5 [facility] Platelet countOrdered By: Bharathi Wallace on 10-21-2024 Platelets (Bld) [#/Vol] 224 10*3/uL 150-450 [facility] Potassium measurement (mass/ volume)Ordered By: Nela Wallace on 10-21-2024 Potassium (Unsp spec) [Mass/Vol] 3.8 mmol/L 3.3-5.1 [facility] RBC Auto (Bld) [#/Vol]Ordere d By: Nela Wallace on 10-21-2024 RBC (Bld) [#/Vol] 2.30 10*6/uL Low 4.2-5.4 [facility] Serum creatinine measurement (mass/volume)Ordered By: Nela Wallace on 10-21-2024 Creatinine [Mass/Vol] 1.04 mg/dL 0.70-1.20 [facility] Serum glucose measurement (m ass/volume)Ordered By: Nela Wallace on 10-21-2024 Glucose [Mass/Vol] 86 mg/dL 70-99 [facility] Serum or plasma calcium niels urement (mass/volume)Ordered By: Nela Wallace on 10-21-2024 Calcium [Mass/Vol] 8.5 mg/dL 7.6-11.0 [facility] Serum or plasma urea nitroge n measurement (mass/volume)Ordered By: Nela Wallace on 10-21-2024 Urea nitrogen [Mass/Vol] 25 mg/dL High 4-19 [facility] Sodium levelOrdered By: Tracie Wallace on 10-21-2024 Sodium [Moles/Vol] 135 mmol/L 133-145 [facility] White blood cell (WBC) count Ordered By: Nela Wallace on 10-21-2024 WBC (Bld) [#/Vol] 5.4 10*3/uL 4.4-11.0 [facility] Basic Metabolic Profile (BMP )on 10-20-2024 BUN/CRE 17.8 RATIO Normal 10-20 [facility] Comment on above: Performed By: #### L 500.2500 ####[facility] [address] [place], [address] Calcium [Mass/Vol] 8.3 mg/dL Normal 7.6-11.0 [facility] Comment on above: Performed By: #### L 500.2500 ####[facility] [address] [place], [address] Chloride [Moles/Vol] 105 mmol/L Normal 98-108 [facility] Comment on above: Performed By: #### L 500.2500 ####[facility] [address] [place], [address] CO2 [Moles/Vol] 21.4 mmol/L Normal 21.0-32.0 [facility] Comment on above: Performed By: #### L 500.2500 ####[facility] [address] [place], [address] Creatinine [Mass/Vol] 0.86 mg/dL Normal 0.70-1.20 [facility] Comment on above: Performed By: #### L 500.2500 ####[facility] [address] [place], [address] ECRCL 55.24 ml/min Normal 50-250 [facility] Comment on above: Performed By: #### L 500.2500 ####[facility] [address] [place], [address] GAP 10 Normal 5-15 [facility] Comment on above: Performed By: #### L 500.2500 ####[facility] [address] [place], [address] GFR/1.73 sq M.predicted among non-blacks MDRD (S/P/Bld) [Vol rate/Area] 68 mL/min/{1.73_m2} Normal >60 [facility] Comment on above: Result Comment: mL/m in/1.73m2 CKD-EPI Creatinine Equation (2020) Performed By: #### L 500.2500 ####[facility] [address] [place], [address] Glucose [Mass/Vol] 82 mg/dL Normal 70-99 [facility] Comment on above: Performed By: #### L 500.2500 ####[facility] [address] [place], [address] Potassium [Moles/Vol] 3.8 mmol/L Normal 3.3-5.1 [facility] Comment on above: Performed By: #### L 500.2500 ####[facility] [address] [place], [address] Sodium [Moles/Vol] 136 mmol/L Normal 133-145 [facility] Comment on above: Performed By: #### L 500.2500 ####[facility] [address] [place], [address] Urea nitrogen [Mass/Vol] 15 mg/dL Normal 4-19 [facility] Comment on above: Performed By: #### L 500.2500 ####[facility] [address] [place], [address] CBC-Complete Blood Cnt No Di ffon 10-20-2024 Erythrocyte distribution width (RBC) [Ratio] 15.5 % High 11.6-14.6 [facility] Comment on above: Performed By: #### L 100.0500 ####[facility] [address] [place], [address] Hematocrit (Bld) [Volume fraction] 27.0 % Low 37-47 [facility] Comment on above: Performed By: #### L 100.0500 ####[facility] [address] [place], [address] Hemoglobin (Bld) [Mass/Vol] 9.1 g/dL Low 12.0-15.0 [facility] Comment on above: Performed By: #### L 100.0500 ####[facility] [address] [place], [address] MCH (RBC) [Entitic mass] 37.6 pg High 27.0-32.0 [facility] Comment on above: Performed By: #### L 100.0500 ####[facility] [address] [place], [address] MCHC (RBC) [Mass/Vol] 33.7 g/dL Normal 32-36 [facility] Comment on above: Performed By: #### L 100.0500 ####[facility] [address] [place], [address] MCV (RBC) [Entitic vol] 111.6 fL High 81-99 [facility] Comment on above: Performed By: #### L 100.0500 ####[facility] [address] [place], [address] Platelet mean volume (Bld) [Entitic vol] 10.8 fL Normal 6.2-12.0 [facility] Comment on above: Performed By: #### L 100.0500 ####[facility] [address] [place], [address] Platelets (Bld) [#/Vol] 210 10*3/uL Normal 150-450 [facility] Comment on above: Performed By: #### L 100.0500 ####[facility] [address] [place], [address] RBC (Bld) [#/Vol] 2.42 10*6/uL Low 4.2-5.4 [facility] Comment on above: Performed By: #### L 100.0500 ####[facility] [address] [place], [address] RDW SD 64.2 fl High 35.1-43.9 [facility] Comment on above: Performed By: #### L 100.0500 ####[facility] [address] [place], [address] WBC (Bld) [#/Vol] 7.0 10*3/uL Normal 4.4-11.0 [facility] Comment on above: Performed By: #### L 100.0500 ####[facility] [address] [place], [address] Basic Metabolic Profile (BMP )on 10-19-2024 BUN/CRE 16.2 RATIO Normal 10-20 [facility] Comment on above: Performed By: #### L 500.2500, L100.0100 ####[facility] [address] [place], [address] Calcium [Mass/Vol] 8.9 mg/dL Normal 7.6-11.0 [facility] Comment on above: Performed By: #### L 500.2500, L100.0100 ####[facility] [address] [place], [address] Chloride [Moles/Vol] 98 mmol/L Normal 98-108 [facility] Comment on above: Performed By: #### L 500.2500, L100.0100 ####[facility] [address] [place], [address] CO2 [Moles/Vol] 21.9 mmol/L Normal 21.0-32.0 [facility] Comment on above: Performed By: #### L 500.2500, L100.0100 ####[facility] [address] [place], [address] Creatinine [Mass/Vol] 1.02 mg/dL Normal 0.70-1.20 [facility] Comment on above: Performed By: #### L 500.2500, L100.0100 ####[facility] [address] [place], [address] ECRCL 46.57 ml/min Low 50-250 [facility] Comment on above: Performed By: #### L 500.2500, L100.0100 ####[facility] [address] [place], [address] GAP 11 Normal 5-15 [facility] Comment on above: Performed By: #### L 500.2500, L100.0100 ####[facility] [address] [place], [address] GFR/1.73 sq M.predicted among non-blacks MDRD (S/P/Bld) [Vol rate/Area] 55 mL/min/{1.73_m2} Low >60 [facility] Comment on above: Result Comment: mL/m in/1.73m2 CKD-EPI Creatinine Equation (2020) Performed By: #### L 500.2500, L100.0100 ####[facility] [address] [place], [address] Glucose [Mass/Vol] 94 mg/dL Normal 70-99 [facility] Comment on above: Performed By: #### L 500.2500, L100.0100 ####[facility] [address] [place], [address] Potassium [Moles/Vol] 4.1 mmol/L Normal 3.3-5.1 [facility] Comment on above: Performed By: #### L 500.2500, L100.0100 ####[facility] [address] [place], [address] Sodium [Moles/Vol] 131 mmol/L Low 133-145 [facility] Comment on above: Performed By: #### L 500.2500, L100.0100 ####[facility] [address] [place], [address] Urea nitrogen [Mass/Vol] 17 mg/dL Normal 4-19 [facility] Comment on above: Performed By: #### L 500.2500, L100.0100 ####[facility] [address] [place], [address] Bedside Glucoseon 10-19-2024 FINGERSTICK GLU 120 mg/dL High 74-106 [facility] Comment on above: Result Comment: TRACEY SALDAÑA OF PATIENT CARE PER NURSING PROTOCOL Performed By: #### L 501.080 ####[facility] [address] [place], [address] CBC W/Diff, Automatedon 07- Absolute Lymph 1.13 X10 3/uL Normal 0.83-4.51 [facility] Comment on above: Performed By: #### L 100.0100 ####[facility] [address] [place], [address] Absolute Neut 5.2 X10 3/uL Normal 2.0-7.7 [facility] Comment on above: Performed By: #### L 100.0100 ####[facility] [address] [place], [address] Basophils/100 WBC (Bld) 0.3 % Normal 0-1 [facility] Comment on above: Performed By: #### L 100.0100 ####[facility] [address] [place], [address] Eosinophils/100 WBC (Bld) 0.9 % Normal 0-5 [facility] Comment on above: Performed By: #### L 100.0100 ####[facility] [address] [place], [address] Erythrocyte distribution width (RBC) [Ratio] 15.5 % High 11.6-14.6 [facility] Comment on above: Performed By: #### L 100.0100 ####[facility] [address] [place], [address] Hematocrit (Bld) [Volume fraction] 27.6 % Low 37-47 [facility] Comment on above: Performed By: #### L 100.0100 ####[facility] [address] [place], [address] Hemoglobin (Bld) [Mass/Vol] 9.4 g/dL Low 12.0-15.0 [facility] Comment on above: Performed By: #### L 100.0100 ####[facility] [address] [place], [address] IG% 0.600 Normal 0.0-0.9 [facility] Comment on above: Result Comment: IG% - Immature Granulocytes (promyelocytes, myelocytes andmetamyelocytes) > 1% indicates that a LEFT SHIFT is Present. Performed By: #### L 100.0100 ####[facility] [address] [place], [address] Lymphocytes/100 WBC (Bld) 14.4 % Low 19-41 [facility] Comment on above: Performed By: #### L 100.0100 ####[facility] [address] [place], [address] MCH (RBC) [Entitic mass] 37.8 pg High 27.0-32.0 [facility] Comment on above: Performed By: #### L 100.0100 ####[facility] [address] [place], [address] MCHC (RBC) [Mass/Vol] 34.1 g/dL Normal 32-36 [facility] Comment on above: Performed By: #### L 100.0100 ####[facility] [address] [place], [address] MCV (RBC) [Entitic vol] 110.8 fL High 81-99 [facility] Comment on above: Performed By: #### L 100.0100 ####[facility] [address] [place], [address] Monocytes/100 WBC (Bld) 17.1 % High 0-10 [facility] Comment on above: Performed By: #### L 100.0100 ####[facility] [address] [place], [address] Neutrophils/100 WBC (Bld) 66.7 % Normal 47-70 [facility] Comment on above: Performed By: #### L 100.0100 ####[facility] [address] [place], [address] Nucleated RBC (Bld) [#/Vol] 0 10*3/uL Normal 0-5 [facility] Comment on above: Performed By: #### L 100.0100 ####[facility] [address] [place], [address] Platelet mean volume (Bld) [Entitic vol] 11.0 fL Normal 6.2-12.0 [facility] Comment on above: Performed By: #### L 100.0100 ####[facility] [address] [place], [address] Platelets (Bld) [#/Vol] 181 10*3/uL Normal 150-450 [facility] Comment on above: Performed By: #### L 100.0100 ####[facility] [address] [place], [address] RBC (Bld) [#/Vol] 2.49 10*6/uL Low 4.2-5.4 [facility] Comment on above: Performed By: #### L 100.0100 ####[facility] [address] [place], [address] RDW SD 62.7 fl High 35.1-43.9 [facility] Comment on above: Performed By: #### L 100.0100 ####[facility] [address] [place], [address] WBC (Bld) [#/Vol] 7.8 10*3/uL Normal 4.4-11.0 [facility] Comment on above: Performed By: #### L 100.0100 ####[facility] [address] [place], [address] Absolute Neut Normal 2.0-7.7 [facility] Comment on above: Result Comment: Canc elled via OM: Duplicate Order Performed By: #### L 500.2500, L100.0100 ####[facility] [address] [place], [address] HCT Normal 37-47 [facility] Comment on above: Result Comment: Canc elled via OM: Duplicate Order Performed By: #### L 500.2500, L100.0100 ####[facility] [address] [place], [address] HGB Normal 12.0-15.0 [facility] Comment on above: Result Comment: Canc elled via OM: Duplicate Order Performed By: #### L 500.2500, L100.0100 ####[facility] [address] [place], [address] MCH Normal 27.0-32.0 [facility] Comment on above: Result Comment: Canc elled via OM: Duplicate Order Performed By: #### L 500.2500, L100.0100 ####[facility] [address] [place], [address] MCHC Normal 32-36 [facility] Comment on above: Result Comment: Canc elled via OM: Duplicate Order Performed By: #### L 500.2500, L100.0100 ####[facility] [address] [place], [address] MCV Normal 81-99 [facility] Comment on above: Result Comment: Canc elled via OM: Duplicate Order Performed By: #### L 500.2500, L100.0100 ####[facility] [address] [place], [address] NEUT% Normal 47-70 [facility] Comment on above: Result Comment: Canc elled via OM: Duplicate Order Performed By: #### L 500.2500, L100.0100 ####[facility] [address] [place], [address] PLT Normal 150-450 [facility] Comment on above: Result Comment: Canc elled via OM: Duplicate Order Performed By: #### L 500.2500, L100.0100 ####[facility] [address] [place], [address] RBC Normal 4.2-5.4 [facility] Comment on above: Result Comment: Canc elled via OM: Duplicate Order Performed By: #### L 500.2500, L100.0100 ####[facility] [address] [place], [address] RDW CV Normal 11.6-14.6 [facility] Comment on above: Result Comment: Canc elled via OM: Duplicate Order Performed By: #### L 500.2500, L100.0100 ####[facility] [address] [place], [address] RDW SD Normal 35.1-43.9 [facility] Comment on above: Result Comment: Canc elled via OM: Duplicate Order Performed By: #### L 500.2500, L100.0100 ####[facility] [address] [place], [address] WBC Normal 4.4-11.0 [facility] Comment on above: Result Comment: Canerasto elled via OM: Duplicate Order Performed By: #### L 500.2500, L100.0100 ####[facility] [address] [place], [address] Gl[facility] measurement at [facility] deOrdered By: Geo Rodriguez on 10-19-2024 Glucose [Mass/Vol] 120 mg/dL High 74-106 [facility] Comment on above: MANAGEMENT OF PATIEN T CARE PER NURSING PROTOCOL Basic Metabolic Profile (BMP )on 10-18-2024 BUN/CRE 18.0 RATIO Normal 10-20 [facility] Comment on above: Performed By: #### L 500.2500, L100.0100 ####[facility] [address], [address] Calcium [Mass/Vol] 8.5 mg/dL Normal 7.6-11.0 [facility] Comment on above: Performed By: #### L 500.2500, L100.0100 ####[facility] [address] [place], [address] Chloride [Moles/Vol] 99 mmol/L Normal 98-108 [facility] Comment on above: Performed By: #### L 500.2500, L100.0100 ####[facility] [address] [place], [address] CO2 [Moles/Vol] 22.0 mmol/L Normal 21.0-32.0 [facility] Comment on above: Performed By: #### L 500.2500, L100.0100 ####[facility] [address] [place], [address] Creatinine [Mass/Vol] 0.92 mg/dL Normal 0.70-1.20 [facility] Comment on above: Performed By: #### L 500.2500, L100.0100 ####[facility] [address] [place], [address] ECRCL 51.63 ml/min Normal 50-250 [facility] Comment on above: Performed By: #### L 500.2500, L100.0100 ####[facility] [address] [place], [address] GAP 11 Normal 5-15 [facility] Comment on above: Performed By: #### L 500.2500, L100.0100 ####[facility] [address] [place], [address] GFR/1.73 sq M.predicted among non-blacks MDRD (S/P/Bld) [Vol rate/Area] 63 mL/min/{1.73_m2} Normal >60 [facility] Comment on above: Result Comment: mL/m in/1.73m2 CKD-EPI Creatinine Equation (2020) Performed By: #### L 500.2500, L100.0100 ####[facility] [address] [place], [address] Glucose [Mass/Vol] 96 mg/dL Normal 70-99 [facility] Comment on above: Performed By: #### L 500.2500, L100.0100 ####[facility] [address] [place], [address] Potassium [Moles/Vol] 3.7 mmol/L Normal 3.3-5.1 [facility] Comment on above: Performed By: #### L 500.2500, L100.0100 ####[facility] [address] [place], [address] Sodium [Moles/Vol] 133 mmol/L Normal 133-145 [facility] Comment on above: Performed By: #### L 500.2500, L100.0100 ####[facility] [address] [place], [address] Urea nitrogen [Mass/Vol] 17 mg/dL Normal 4-19 [facility] Comment on above: Performed By: #### L 500.2500, L100.0100 ####[facility] [address] [place], [address] CBC W/Diff, Automatedon 07-3 0-2025 Absolute Lymph 0.76 X10 3/uL Low 0.83-4.51 [facility] Comment on above: Performed By: #### L 500.2500, L100.0100 ####[facility] [address] [place], [address] Absolute Neut 5.0 X10 3/uL Normal 2.0-7.7 [facility] Comment on above: Performed By: #### L 500.2500, L100.0100 ####[facility] [address] [place], [address] Basophils/100 WBC (Bld) 0.1 % Normal 0-1 [facility] Comment on above: Performed By: #### L 500.2500, L100.0100 ####[facility] [address] [place], [address] Eosinophils/100 WBC (Bld) 0.4 % Normal 0-5 [facility] Comment on above: Performed By: #### L 500.2500, L100.0100 ####[facility] [address] [place], [address] Erythrocyte distribution width (RBC) [Ratio] 15.6 % High 11.6-14.6 [facility] Comment on above: Performed By: #### L 500.2500, L100.0100 ####[facility] [address] [place], [address] Hematocrit (Bld) [Volume fraction] 28.2 % Low 37-47 [facility] Comment on above: Performed By: #### L 500.2500, L100.0100 ####[facility] [address] [place], [address] Hemoglobin (Bld) [Mass/Vol] 9.4 g/dL Low 12.0-15.0 [facility] Comment on above: Performed By: #### L 500.2500, L100.0100 ####[facility] [address] [place], [address] IG% 0.300 Normal 0.0-0.9 [facility] Comment on above: Result Comment: IG% - Immature Granulocytes (promyelocytes, myelocytes andmetamyelocytes) > 1% indicates that a LEFT SHIFT is Present. Performed By: #### L 500.2500, L100.0100 ####[facility] [address] [place], [address] Lymphocytes/100 WBC (Bld) 11.1 % Low 19-41 [facility] Comment on above: Performed By: #### L 500.2500, L100.0100 ####[facility] [address] [place], [address] MCH (RBC) [Entitic mass] 36.9 pg High 27.0-32.0 [facility] Comment on above: Performed By: #### L 500.2500, L100.0100 ####[facility] [address] [place], [address] MCHC (RBC) [Mass/Vol] 33.3 g/dL Normal 32-36 [facility] Comment on above: Performed By: #### L 500.2500, L100.0100 ####[facility] [address] [place], [address] MCV (RBC) [Entitic vol] 110.6 fL High 81-99 [facility] Comment on above: Performed By: #### L 500.2500, L100.0100 ####[facility] [address] [place], [address] Monocytes/100 WBC (Bld) 14.6 % High 0-10 [facility] Comment on above: Performed By: #### L 500.2500, L100.0100 ####[facility] [address] [place], [address] Neutrophils/100 WBC (Bld) 73.5 % High 47-70 [facility] Comment on above: Performed By: #### L 500.2500, L100.0100 ####[facility] [address] [place], [address] Nucleated RBC (Bld) [#/Vol] 0 10*3/uL Normal 0-5 [facility] Comment on above: Performed By: #### L 500.2500, L100.0100 ####[facility] [address] [place], [address] Platelet mean volume (Bld) [Entitic vol] 10.4 fL Normal 6.2-12.0 [facility] Comment on above: Performed By: #### L 500.2500, L100.0100 ####[facility] [address] [place], [address] Platelets (Bld) [#/Vol] 176 10*3/uL Normal 150-450 [facility] Comment on above: Performed By: #### L 500.2500, L100.0100 ####[facility] [address] [place], [address] RBC (Bld) [#/Vol] 2.55 10*6/uL Low 4.2-5.4 [facility] Comment on above: Performed By: #### L 500.2500, L100.0100 ####[facility] [address] [place], [address] RDW SD 62.7 fl High 35.1-43.9 [facility] Comment on above: Performed By: #### L 500.2500, L100.0100 ####[facility] [address] [place], [address] WBC (Bld) [#/Vol] 6.8 10*3/uL Normal 4.4-11.0 [facility] Comment on above: Performed By: #### L 500.2500, L100.0100 ####[facility] [address] [place], [address] HH, Hemoglobin AND Hematocri ton 10-18-2024 Hematocrit (Bld) [Volume fraction] 28.2 % Low 37-47 [facility] Comment on above: Performed By: #### L 100.0600 ####[facility] [address] [place], [address] Hemoglobin (Bld) [Mass/Vol] 9.5 g/dL Low 12.0-15.0 [facility] Comment on above: Performed By: #### L 100.0600 ####[facility] [address] [place], [address] Ankle min 3 Viewson 10-18-19 25 Ankle min 3 Views Normal [facility] Basic Metabolic Profile (BMP )on 10-17-2024 BUN/CRE 20.7 RATIO High 10-20 [facility] Comment on above: Performed By: #### L 100.0500, L500.2500 ####[facility] [address] [place], [address] Calcium [Mass/Vol] 8.6 mg/dL Normal 7.6-11.0 [facility] Comment on above: Performed By: #### L 100.0500, L500.2500 ####[facility] [address] [place], [address] Chloride [Moles/Vol] 103 mmol/L Normal 98-108 [facility] Comment on above: Performed By: #### L 100.0500, L500.2500 ####[facility] [address] [place], [address] CO2 [Moles/Vol] 20.7 mmol/L Low 21.0-32.0 [facility] Comment on above: Performed By: #### L 100.0500, L500.2500 ####[facility] [address] [place], [address] Creatinine [Mass/Vol] 0.68 mg/dL Low 0.70-1.20 [facility] Comment on above: Performed By: #### L 100.0500, L500.2500 ####[facility] [address] [place], [address] ECRCL 59.38 ml/min Normal 50-250 [facility] Comment on above: Performed By: #### L 100.0500, L500.2500 ####[facility] [address] [place], [address] GAP 12 Normal 5-15 [facility] Comment on above: Performed By: #### L 100.0500, L500.2500 ####[facility] [address] [place], [address] GFR/1.73 sq M.predicted among non-blacks MDRD (S/P/Bld) [Vol rate/Area] 87 mL/min/{1.73_m2} Normal >60 [facility] Comment on above: Result Comment: mL/m in/1.73m2 CKD-EPI Creatinine Equation (2020) Performed By: #### L 100.0500, L500.2500 ####[facility] [address] [place], [address] Glucose [Mass/Vol] 135 mg/dL High 70-99 [facility] Comment on above: Performed By: #### L 100.0500, L500.2500 ####[facility] [address], [address] Potassium [Moles/Vol] 3.9 mmol/L Normal 3.3-5.1 [facility] Comment on above: Performed By: #### L 100.0500, L500.2500 ####[facility] [address] [place], [address] Sodium [Moles/Vol] 136 mmol/L Normal 133-145 [facility] Comment on above: Performed By: #### L 100.0500, L500.2500 ####[facility] [address] [place], [address] Urea nitrogen [Mass/Vol] 14 mg/dL Normal 4-19 [facility] Comment on above: Performed By: #### L 100.0500, L500.2500 ####[facility] [address] [place], [address] CBC-Complete Blood Cnt No Di ffon 10-17-2024 Erythrocyte distribution width (RBC) [Ratio] 15.9 % High 11.6-14.6 [facility] Comment on above: Performed By: #### L 100.0500, L500.2500 ####[facility] [address] [place], [address] Hematocrit (Bld) [Volume fraction] 30.5 % Low 37-47 [facility] Comment on above: Performed By: #### L 100.0500, L500.2500 ####[facility] [address] [place], [address] Hemoglobin (Bld) [Mass/Vol] 10.2 g/dL Low 12.0-15.0 [facility] Comment on above: Performed By: #### L 100.0500, L500.2500 ####[facility] [address] [place], [address] MCH (RBC) [Entitic mass] 37.2 pg High 27.0-32.0 [facility] Comment on above: Performed By: #### L 100.0500, L500.2500 ####[facility] [address] [place], [address] MCHC (RBC) [Mass/Vol] 33.4 g/dL Normal 32-36 [facility] Comment on above: Performed By: #### L 100.0500, L500.2500 ####[facility] [address] [place], [address] MCV (RBC) [Entitic vol] 111.3 fL High 81-99 [facility] Comment on above: Performed By: #### L 100.0500, L500.2500 ####[facility] [address] [place], [address] Platelet mean volume (Bld) [Entitic vol] 10.6 fL Normal 6.2-12.0 [facility] Comment on above: Performed By: #### L 100.0500, L500.2500 ####[facility] [address] [place], [address] Platelets (Bld) [#/Vol] 176 10*3/uL Normal 150-450 [facility] Comment on above: Performed By: #### L 100.0500, L500.2500 ####[facility] [address] [place], [address] RBC (Bld) [#/Vol] 2.74 10*6/uL Low 4.2-5.4 [facility] Comment on above: Performed By: #### L 100.0500, L500.2500 ####[facility] [address] [place], [address] RDW SD 65.1 fl High 35.1-43.9 [facility] Comment on above: Performed By: #### L 100.0500, L500.2500 ####[facility] [address] [place], [address] WBC (Bld) [#/Vol] 7.1 10*3/uL Normal 4.4-11.0 [facility] Comment on above: Performed By: #### L 100.0500, L500.2500 ####[facility] [address] [place], [address] Extremity Lower without Cont raon 10-17-2024 Extremity Lower without Contra Normal [facility] Bedside Glucoseon 10-16-2024 FINGERSTICK GLU 113 mg/dL High 74-106 [facility] Comment on above: Result Comment: TRACEY SALDAÑA OF PATIENT CARE PER NURSING PROTOCOL Performed By: #### L 501.080 ####[facility] [address] [place], [address] Consultation - Hospitaliston 10-16-2024 Consultation - Hospitalist Normal [facility] Knee 1 or 2 Viewson 10-17-19 25 Knee 1 or 2 Views Normal [facility] Knee 1 or 2 Views Normal [facility] MR/POSTOP.ANEon 10-16-2024 MR/POSTOP.ANE Normal [facility] MR/[id number] 10-16-2024 MR/POSTOPAN2 Normal [facility] Operative Reporton 5 Operative Report Normal [facility] MRSA/SAID NASAL SCREENon MRSA+SAID SCRN Negative Normal [facility] Comment on above: Performed By: #### M 100.651 ####[facility] [address] [place], [address] Absolute lymphocyte countOrd ered By: Carolyn Ruvalcaba on 10-11-2024 Lymphocytes Auto (Unsp spec) [#/Vol] 1.13 10*3/uL 0.83-4.51 [facility] Absolute neutrophil countOrd ered By: Carolynmilka NicolePeg on 10-11-2024 Neutrophils (Bld) [#/Vol] 2.1 10*3/uL 2.0-7.7 [facility] Anion gap in Serum or Plasma Ordered By: Carolyn Ruvalcaba on 10-11-2024 Anion gap [Moles/Vol] 13 mmol/L 5-15 [facility] Automated lymphocyte count a s percentage of total leukocytesOrdered By: Carolyn Ruvalcaba on 10-11-2024 Lymphocytes/100 WBC Auto (Unsp spec) 30.5 % 19- [facility] BUN/creatinine ratioOrdered By: Carolyn Ruvalcaba on 10-11-2024 Urea nitrogen/Creatinine [Mass ratio] 14.2 mg/mg 10-20 [facility] Basophil percentageOrdered B y: Carolyn Ruvalcaba on 10-11-2024 Basophils/100 WBC (Bld) 0.3 % 0-1 [facility] Bilirubin, totalOrdered By: Carolyn Ruvalcaba on 10-11-2024 Bilirubin [Mass/Vol] 0.40 mg/dL 0.00-1.30 [facility] Blood manual differential co mment interpretation (narrative result)Ordered By: Carolyn Ruvalcaba on 10-11-2024 Manual differential comment Jack (Bld) [Interp] SCANNED [facility] Blood polychromasia detectio n by light microscopyOrdered By: Carolyn Ruvalcaba on 10-11-2024 Polychromasia LM Ql (Bld) 1+ [facility] CBC W/Diff, Automatedon 09-20 Anisocytosis Ql (Bld) 1+ Normal [facility] Comment on above: Performed By: #### L 100.0100, L500.4050 ####[facility] [address] [place], [address] POLYCHROMASIA 1+ Normal [facility] Comment on above: Performed By: #### L 100.0100, L500.4050 ####[facility] [address] [place], [address] PLT EST ADEQUATE Normal ADEQ [facility] Comment on above: Performed By: #### L 100.0100, L500.4050 ####[facility] [address] [place], [address] SMEAR COMMENT SCANNED Normal [facility] Comment on above: Performed By: #### L 100.0100, L500.4050 ####[facility] [address] [place], [address] Carbon dioxide, total [Moles /volume] in Central venous bloodOrdered By: Carolyn Ruvalcaba on 10-11-2024 CO2 [Moles/Vol] 21.4 mmol/L 21.0-32.0 [facility] Chloride assayOrdered By: Ke Ruvalcaba on 10-11-2024 Chloride [Moles/Vol] 102 mmol/L 98-108 [facility] Comprehensive Metabolic Prof ilon 10-11-2024 Albumin [Mass/Vol] 4.0 g/dL Normal 3.4-4.8 [facility] Comment on above: Order Comment: CC: C MP CBCD TO DR RODRIGUEZ Performed By: #### L 100.0100, L500.4050 ####[facility] [address] [place], [address] Albumin/Globulin [Mass ratio] 1.4 {ratio} Normal 0.9-2.4 [facility] Comment on above: Order Comment: CC: C MP CBCD TO DR RODRIGUEZ Performed By: #### L 100.0100, L500.4050 ####[facility] [address] [place], [address] ALK PHOS 82 U/L Normal 35-104 [facility] Comment on above: Order Comment: CC: C MP CBCD TO DR RODRIGUEZ Performed By: #### L 100.0100, L500.4050 ####[facility] [address] [place], [address] ALT [Catalytic activity/Vol] 14 U/L Normal <=34 [facility] Comment on above: Order Comment: CC: C MP CBCD TO DR RODRIGUEZ Performed By: #### L 100.0100, L500.4050 ####[facility] [address] [place], [address] AST [Catalytic activity/Vol] 22 U/L Normal <=31 [facility] Comment on above: Order Comment: CC: C MP CBCD TO DR RODRIGUEZ Performed By: #### L 100.0100, L500.4050 ####[facility] [address] [place], [address] Bilirubin [Mass/Vol] 0.40 mg/dL Normal 0.00-1.30 [facility] Comment on above: Order Comment: CC: C MP CBCD TO DR RODRIGUEZ Performed By: #### L 100.0100, L500.4050 ####[facility] [address] [place], [address] BUN/CRE 14.2 RATIO Normal 10-20 [facility] Comment on above: Order Comment: CC: C MP CBCD TO DR RODRIGUEZ Performed By: #### L 100.0100, L500.4050 ####[facility] [address] [place], [address] Calcium [Mass/Vol] 9.3 mg/dL Normal 7.6-11.0 [facility] Comment on above: Order Comment: CC: C MP CBCD TO DR RODRIGUEZ Performed By: #### L 100.0100, L500.4050 ####[facility] [address] [place], [address] Chloride [Moles/Vol] 102 mmol/L Normal 98-108 [facility] Comment on above: Order Comment: CC: C MP CBCD TO DR RODRIGUEZ Performed By: #### L 100.0100, L500.4050 ####[facility] [address] [place], [address] CO2 [Moles/Vol] 21.4 mmol/L Normal 21.0-32.0 [facility] Comment on above: Order Comment: CC: C MP CBCD TO DR RODRIGUEZ Performed By: #### L 100.0100, L500.4050 ####[facility] [address] [place], [address] Creatinine [Mass/Vol] 1.08 mg/dL Normal 0.70-1.20 [facility] Comment on above: Order Comment: CC: C MP CBCD TO DR RODRIGUEZ Performed By: #### L 100.0100, L500.4050 ####[facility] [address] [place], [address] ECRCL 44.99 ml/min Low 50-250 [facility] Comment on above: Order Comment: CC: C MP CBCD TO DR RODRIGUEZ Performed By: #### L 100.0100, L500.4050 ####[facility] [address] [place], [address] GAP 13 Normal 5-15 [facility] Comment on above: Order Comment: CC: C MP CBCD TO DR RODRIGUEZ Performed By: #### L 100.0100, L500.4050 ####[facility] [address] [place], [address] GFR/1.73 sq M.predicted among non-blacks MDRD (S/P/Bld) [Vol rate/Area] 52 mL/min/{1.73_m2} Low >60 [facility] Comment on above: Order Comment: CC: C MP CBCD TO DR RODRIGUEZ Result Comment: mL/m in/1.73m2 CKD-EPI Creatinine Equation (2020) Performed By: #### L 100.0100, L500.4050 ####[facility] [address] [place], [address] Globulin (S) [Mass/Vol] 2.9 g/dL Normal 2.2-4.2 [facility] Comment on above: Order Comment: CC: C MP CBCD TO DR RODRIGUEZ Performed By: #### L 100.0100, L500.4050 ####[facility] [address] [place], [address] Glucose [Mass/Vol] 129 mg/dL High 70-99 [facility] Comment on above: Order Comment: CC: C MP CBCD TO DR RODRIGUEZ Performed By: #### L 100.0100, L500.4050 ####[facility] [address] [place], [address] Potassium [Moles/Vol] 4.1 mmol/L Normal 3.3-5.1 [facility] Comment on above: Order Comment: CC: C MP CBCD TO DR RODRIGUEZ Performed By: #### L 100.0100, L500.4050 ####[facility] [address] [place], [address] Sodium [Moles/Vol] 136 mmol/L Normal 133-145 [facility] Comment on above: Order Comment: CC: C MP CBCD TO DR RODRIGUEZ Performed By: #### L 100.0100, L500.4050 ####[facility] [address] [place], [address] T PROT 6.9 g/dL Normal 5.9-8.4 [facility] Comment on above: Order Comment: CC: C MP CBCD TO DR RODRIGUEZ Performed By: #### L 100.0100, L500.4050 ####[facility] [address] [place], [address] Urea nitrogen [Mass/Vol] 15 mg/dL Normal 4-19 [facility] Comment on above: Order Comment: CC: C MP CBCD TO DR RODRIGUEZ Performed By: #### L 100.0100, L500.4050 ####[facility] [address] [place], [address] Eosinophil percentageOrdered By: Carolyn Ruvalcaba on 10-11-2024 Eosinophils/100 WBC (Bld) 1.1 % 0-5 [facility] Erythrocyte distribution wid th ratioOrdered By: Carolyn Ruvalcaba on 10-11-2024 Erythrocyte distribution width (RBC) [Ratio] 16.2 % High 11.6-14.6 [facility] Erythrocyte distribution wid th standard deviationOrdered By: Carolyn Ruvalcaba on 10-11-2024 Erythrocyte distribution width (RBC) [Ratio] 65.8 fl High 35.1-43.9 [facility] Glomerular filtration rate ( GFR) estimation/1.73 sq m using serum, plasma, or whole bOrdered By: Carolyn Ruvalcaba on 10-11-2024 GFR/1.73 sq M.predicted among non-blacks MDRD (S/P/Bld) [Vol rate/Area] 52 mL/min/{1.73_m2} Low >60 [facility] Comment on above: mL/min/1.73m2 CKD-EP I Creatinine Equation (2020) Hematocrit Auto (Bld) [Volum e fraction]Ordered By: Carolyn Ruvalcaba on 10-11-2024 Hematocrit (Bld) [Volume fraction] 36.1 % Low 37-47 [facility] Hemoglobin measurementOrdere d By: Carolyn Ruvalcaba on 10-11-2024 Hemoglobin (Bld) [Mass/Vol] 12.1 g/dL 12.0-15.0 [facility] Immature granulocytes/100 WB C Auto (Bld)Ordered By: Carolyn Peg on 10-11-2024 Immature granulocytes/100 WBC (Bld) 0.500 % 0.0-0.9 [facility] Comment on above: IG% - Immature Granu locytes (promyelocytes, myelocytes and metamyelocytes) > 1% indicates that a LEFT SHIFT is Present. Laboratory - Chemistry and C hemistry - challengeOrdered By: Carolyn Ruvalcaba on 10-11-2024 AST [Catalytic activity/Vol] 22 U/L <32 [facility] Laboratory - Hematology and Cell countsOrdered By: Carolyn Peg on 10-11-2024 Anisocytosis Ql (Bld) 1+ [facility] MCV (mean corpuscular volume ) determinationOrdered By: Carolyn Ruvalcaba on 10-11-2024 MCV (RBC) [Entitic vol] 110.7 fL High 81-99 [facility] MRSA screenOrdered By: Az Rodriguez on 10-11-2024 MRSA DNA JANY+probe Ql (Unsp spec) [facility] Mean corpuscular hemoglobin (MCH) determinationOrdered By: Carolyn NicolePeg on 10-11-2024 MCH (RBC) [Entitic mass] 37.1 pg High 27.0-32.0 [facility] Mean corpuscular hemoglobin concentration (MCHC) determinationOrdered By: Carolyn NicolePeg on 10-11-2024 MCHC (RBC) [Mass/Vol] 33.5 g/dL 32-36 [facility] Mean platelet volume determi nationOrdered By: Carolyn NicolePeg on 10-11-2024 Platelet mean volume (Bld) [Entitic vol] 10.3 fL 6.2-12.0 [facility] Monocyte percentageOrdered B y: Carolyn Ruvalcaba on 10-11-2024 Monocytes/100 WBC (Bld) 10.3 % High 0-10 [facility] Neutrophil percentageOrdered By: Carolyn Ruvalcaba on 10-11-2024 Neutrophils/100 WBC (Bld) 57.3 % 47-70 [facility] No Panel InformationOrdered By: Carolyn Ruvalcaba on 10-11-2024 1+ [facility] 22 U/L <32 [facility] Nucleated red blood cell per centageOrdered By: Carolyn Ruvalcaba on 10-11-2024 Nucleated RBC/100 WBC (Bld) [Ratio] 0 % 0-5 [facility] Oncology Visit Reporton 09-20 Oncology Visit Report Normal [facility] Platelet countOrdered By: Ty ra Peg on 10-11-2024 Platelets (Bld) [#/Vol] 244 10*3/uL 150-450 [facility] Platelet estimateOrdered By: Carolyn Ruvalcaba on 10-11-2024 Platelets LM Ql (Bld) ADEQUATE ADEQ [facility] Potassium measurement (mass/ volume)Ordered By: Carolyn Ruvalcaba on 10-11-2024 Potassium (Unsp spec) [Mass/Vol] 4.1 mmol/L 3.3-5.1 [facility] RBC Auto (Bld) [#/Vol]Ordere d By: Carolyn NicolePeg on 10-11-2024 RBC (Bld) [#/Vol] 3.26 10*6/uL Low 4.2-5.4 [facility] Serum creatinine measurement (mass/volume)Ordered By: Carolyn Ruvalcaba on 10-11-2024 Creatinine [Mass/Vol] 1.08 mg/dL 0.70-1.20 [facility] Serum globulin measurementOr dered By: Carolyn Ruvalcaba on 10-11-2024 Globulin (S) [Mass/Vol] 2.9 g/dL 2.2-4.2 [facility] Serum glucose measurement (m ass/volume)Ordered By: Carolyn Ruvalcaba on 10-11-2024 Glucose [Mass/Vol] 129 mg/dL High 70-99 [facility] Serum or plasma alanine bey otransferase (ALT) measurementOrdered By: Carolyn Ruvalcaba on 10-11-2024 ALT [Catalytic activity/Vol] 14 U/L <35 [facility] Serum or plasma albumin niels urement (mass/volume)Ordered By: Carolyn Ruvalcaba on 10-11-2024 Albumin [Mass/Vol] 4.0 g/dL 3.4-4.8 [facility] Serum or plasma albumin/glob ulin mass ratioOrdered By: Carolyn Ruvalcaba on 10-11-2024 Albumin/Globulin [Mass ratio] 1.4 {ratio} 0.9-2.4 [facility] Serum or plasma alkaline victor hugo sphatase measurementOrdered By: Carolyn Ruvalcaba 10-11-2024 ALP [Catalytic activity/Vol] 82 U/L 35-104 [facility] Serum or plasma calcium niels urement (mass/volume)Ordered By: Carolyn Ruvalcaba 10-11-2024 Calcium [Mass/Vol] 9.3 mg/dL 7.6-11.0 [facility] Serum or plasma urea nitroge n measurement (mass/volume)Ordered By: Carolyn Ruvalcaba 10-11-2024 Urea nitrogen [Mass/Vol] 15 mg/dL 4-19 [facility] Sodium levelOrdered By: Carolyn Ruvalcaba on 10-11-2024 Sodium [Moles/Vol] 136 mmol/L 133-145 [facility] Total proteinOrdered By: Nayan Ruvalcaba on 10-11-2024 Protein [Mass/Vol] 6.9 g/dL 5.9-8.4 [facility] White blood cell (WBC) count Ordered By: Carolyn Ruvalcaba on 10-11-2024 WBC (Bld) [#/Vol] 3.7 10*3/uL Low 4.4-11.0 [facility] MR/PAT.ANEon 10-05-2024 MR/PAT.ANE Normal [facility] Cardiology Visit Reporton Cardiology Visit Report Normal [facility] Electrocardiogram reportOrde red By: Omero Armas on 08-03-2024 EKG study [facility] [address] [place] [address] 12 Lead EKG 08/01/24 1400 MR#: [id number] Acct: [id number] Name: BERNICE HASSAN Rep #:[id number] : 1945 79 From: Omero betancur MD Attending Dr: Dr. Dago Emery MD Status: REG CLI Ordering Dr: Dago Emery MD Date: Location: [facility] Sex: F C Admitted: Test Reason [...] effect Abnormal ECG Confirmed by Omero Armas ([id number]), department editor BONY SANCHEZ ([id number]) on 08/03/2024 10:09:09 AM Referred By: Dago Emery Confirmed By: Omero Armas 08/03/24 1009 Date _ Omero Armas MD CC: Dr. Dago Emery MD ~ Signed [facility] Other Phone: MRSA/SAID NASAL SCREENon MRSA+SAID SCRN Reason for Exam: PRE OP MRSA MRSA Negative S. AUREUS S. aureus Negative Normal [facility] Comment on above: Performed By: #### M 100.651, L501.1800 ####[facility] [address] [place], [address] 12 Lead EKGon 08-01-2024 12 Lead EKG Normal [facility] Extremity Lower without Cont raon 08-01-2024 Extremity Lower without Contra Normal [facility] MR/PAT.ANEon 08-01-2024 MR/PAT.ANE Normal [facility] Activated partial thrombopla stin time (aPTT) in platelet poor plasma by coagulation aOrdered By: Dago Emery on 07-31-2024 aPTT Coag (PPP) [Time] 26.1 s 24.1-36.2 [facility] Albumin, Serumon 07-31-2024 Albumin [Mass/Vol] 3.9 g/dL Normal 3.4-4.8 [facility] Comment on above: Performed By: #### M 100.651, L501.1800 ####[facility] [address] [place], [address] Bilirubin, totalOrdered By: Dago Emery on 07-31-2024 Bilirubin [Mass/Vol] 0.42 mg/dL 0.00-1.30 [facility] Comprehensive Metabolic Prof ilon 07-31-2024 Albumin [Mass/Vol] 4.0 g/dL Normal 3.4-4.8 [facility] Comment on above: Performed By: #### L 300.4310, L500.4050, L300.3900, L506.1001 ####[facility] [address] [place], [address] Albumin/Globulin [Mass ratio] 1.6 {ratio} Normal 0.9-2.4 [facility] Comment on above: Performed By: #### L 300.4310, L500.4050, L300.3900, L506.1001 ####[facility] [address] [place], [address] ALK PHOS 92 U/L Normal 35-104 [facility] Comment on above: Performed By: #### L 300.4310, L500.4050, L300.3900, L506.1001 ####[facility] [address] [place], [address] ALT [Catalytic activity/Vol] 14 U/L Normal <=34 [facility] Comment on above: Performed By: #### L 300.4310, L500.4050, L300.3900, L506.1001 ####[facility] [address] [place], [address] AST [Catalytic activity/Vol] 22 U/L Normal <=31 [facility] Comment on above: Performed By: #### L 300.4310, L500.4050, L300.3900, L506.1001 ####[facility] [address], [address] Bilirubin [Mass/Vol] 0.42 mg/dL Normal 0.00-1.30 [facility] Comment on above: Performed By: #### L 300.4310, L500.4050, L300.3900, L506.1001 ####[facility] [address] [place], [address] BUN/CRE 19.1 RATIO Normal 10-20 [facility] Comment on above: Performed By: #### L 300.4310, L500.4050, L300.3900, L506.1001 ####[facility] [address] [place], [address] Calcium [Mass/Vol] 9.5 mg/dL Normal 7.6-11.0 [facility] Comment on above: Performed By: #### L 300.4310, L500.4050, L300.3900, L506.1001 ####[facility] [address] [place], [address] Chloride [Moles/Vol] 105 mmol/L Normal 98-108 [facility] Comment on above: Performed By: #### L 300.4310, L500.4050, L300.3900, L506.1001 ####[facility] [address] [place], [address] CO2 [Moles/Vol] 23.0 mmol/L Normal 21.0-32.0 [facility] Comment on above: Performed By: #### L 300.4310, L500.4050, L300.3900, L506.1001 ####[facility] [address] [place], [address] Creatinine [Mass/Vol] 0.97 mg/dL Normal 0.70-1.20 [facility] Comment on above: Performed By: #### L 300.4310, L500.4050, L300.3900, L506.1001 ####[facility] [address] [place], [address] GAP 12 Normal 5-15 [facility] Comment on above: Performed By: #### L 300.4310, L500.4050, L300.3900, L506.1001 ####[facility] [address] [place], [address] GFR/1.73 sq M.predicted among non-blacks MDRD (S/P/Bld) [Vol rate/Area] 59 mL/min/{1.73_m2} Low >60 [facility] Comment on above: Result Comment: mL/m in/1.73m2 CKD-EPI Creatinine Equation (2020) Performed By: #### L 300.4310, L500.4050, L300.3900, L506.1001 ####[facility] [address] [place], [address] Globulin (S) [Mass/Vol] 2.4 g/dL Normal 2.2-4.2 [facility] Comment on above: Performed By: #### L 300.4310, L500.4050, L300.3900, L506.1001 ####[facility] [address] [place], [address] Glucose [Mass/Vol] 127 mg/dL High 70-99 [facility] Comment on above: Performed By: #### L 300.4310, L500.4050, L300.3900, L506.1001 ####[facility] [address] [place], [address] Potassium [Moles/Vol] 4.5 mmol/L Normal 3.3-5.1 [facility] Comment on above: Performed By: #### L 300.4310, L500.4050, L300.3900, L506.1001 ####[facility] [address] [place], [address] Sodium [Moles/Vol] 139 mmol/L Normal 133-145 [facility] Comment on above: Performed By: #### L 300.4310, L500.4050, L300.3900, L506.1001 ####[facility] [address] [place], [address] T PROT 6.4 g/dL Normal 5.9-8.4 [facility] Comment on above: Performed By: #### L 300.4310, L500.4050, L300.3900, L506.1001 ####[facility] [address] [place], [address] Urea nitrogen [Mass/Vol] 19 mg/dL Normal 4-19 [facility] Comment on above: Performed By: #### L 300.4310, L500.4050, L300.3900, L506.1001 ####[facility] [address] [place], [address] International normalized rat io (INR) calculationOrdered By: Dago Emery on 07-31-2024 INR Coag (Bld) [Relative time] 0.9 {INR} [facility] Laboratory - Chemistry and C hemistry - challengeOrdered By: Dago Emery on 07-31-2024 AST [Catalytic activity/Vol] 22 U/L <32 [facility] MRSA screenOrdered By: Az Rodriguez on 07-31-2024 MRSA DNA JANY+probe Ql (Unsp spec) [facility] Magnesiumon 07-31-2024 Magnesium [Mass/Vol] 2.3 mg/dL High 1.5-2.2 [facility] Comment on above: Performed By: #### L 501.5200, L501.9520 ####[facility] [address] [place], [address] Magnesium measurement (mass/ volume)Ordered By: Jg Pandey on 07-31-2024 Magnesium (Unsp spec) [Mass/Vol] 2.3 mg/dL High 1.5-2.2 [facility] No Panel InformationOrdered By: Dago Emery on 07-31-2024 22 U/L <32 [facility] Partial Thromboplast Timeon 07-31-2024 aPTT Coag (Bld) [Time] 26.1 s Normal 24.1-36.2 [facility] Comment on above: Performed By: #### L 300.4310, L500.4050, L300.3900, L506.1001 ####[facility] [address] [place], [address] Prothrombin Time w/INRon INR Coag (PPP) [Relative time] 0.9 {INR} Normal [facility] Comment on above: Performed By: #### L 300.4310, L500.4050, L300.3900, L506.1001 ####[facility] [address] [place], [address] PT Coag (PPP) [Time] 12.6 s Normal 11.7-14.9 [facility] Comment on above: Performed By: #### L 300.4310, L500.4050, L300.3900, L506.1001 ####[facility] [address] [place], [place], [id number] Prothrombin timeOrdered By: Dago Emery on 07-31-2024 PT Coag (PPP) [Time] 12.6 s 11.7-14.9 [facility] Serum globulin measurementOr dered By: Dago Emery on 07-31-2024 Globulin (S) [Mass/Vol] 2.4 g/dL 2.2-4.2 [facility] Serum or plasma alanine bey otransferase (ALT) measurementOrdered By: Dago Emery on 07-31-2024 ALT [Catalytic activity/Vol] 14 U/L <35 [facility] Serum or plasma albumin niels urement (mass/volume)Ordered By: Dago Emery on 07-31-2024 Albumin [Mass/Vol] 4.0 g/dL 3.4-4.8 [facility] Serum or plasma albumin/glob ulin mass ratioOrdered By: Dago Emery on 07-31-2024 Albumin/Globulin [Mass ratio] 1.6 {ratio} 0.9-2.4 [facility] Serum or plasma alkaline victor hugo sphatase measurementOrdered By: Dago Emery 07-31-2024 ALP [Catalytic activity/Vol] 92 U/L 35-104 [facility] TSH DL <= 0.005 mIU/L QnOrde red By: Jg Pandey on 07-31-2024 TSH Qn 1.470 uIU/mL 0.300-4.20 0 [facility] Thyroid Stim Hormone (TSH)on 07-31-2024 TSH 1.470 uIU/mL Normal 0.300-4.20 0 [facility] Comment on above: Performed By: #### L 501.5200, L501.9598 ####[facility] [address] [place], [place], [id number] Total proteinOrdered By: Dago Emery on 07-31-2024 Protein [Mass/Vol] 6.4 g/dL 5.9-8.4 [facility] Vitamin D,25 Hydroxyon 07-31 Vitamin D 25-OH 18.9 ng/mL Low 30-100 [facility] Comment on above: Result Comment: Trin[place] min D StatusDeficiency: <20 ng/mL (50nmol/L)Insufficiency: 20-30 ng/mL (50-75 nmol/L)Sufficiency: 30-100 ng/mL (75-250 nmol/L)Toxicity: >100 ng/mL (>250 nmol/L) Performed By: #### L 300.4310, L500.4050, L300.3900, L506.1001 ####[facility] [address] [place], [place], [id number] Absolute lymphocyte countOrd ered By: [facility] on 07-10-2024 Lymphocytes Auto (Unsp spec) [#/Vol] 1.19 10*3/uL 0.83-4.51 [facility] Absolute neutrophil countOrd ered By: [facility]ate on 07-10-2024 Neutrophils (Bld) [#/Vol] 3.7 10*3/uL 2.0-7.7 [facility] Anion gap in Serum or Plasma Ordered By: [facility] on 07-10-2024 Anion gap [Moles/Vol] 10 mmol/L 5-15 [facility] Automated lymphocyte count a s percentage of total leukocytesOrdered By: [facility] on 07-10-2024 Lymphocytes/100 WBC Auto (Unsp spec) 22.0 % 19-41 [facility] BUN/creatinine ratioOrdered By: [facility] on 07-10-2024 Urea nitrogen/Creatinine [Mass ratio] 20.2 mg/mg High 10-20 [facility] Basophil percentageOrdered B y: [facility] on 07-10-2024 Basophils/100 WBC (Bld) 0.4 % 0-1 [facility] Bilirubin, totalOrdered By: [facility] on 07-10-2024 Bilirubin [Mass/Vol] 0.40 mg/dL 0.00-1.30 [facility] CBC W/Diff, Automatedon - Absolute Lymph 1.19 X10 3/uL Normal 0.83-4.51 [facility] Comment on above: Performed By: #### L 100.0100, L500.4050 ####[facility] [address] [place], [address] Absolute Neut 3.7 X10 3/uL Normal 2.0-7.7 [facility] Comment on above: Performed By: #### L 100.0100, L500.4050 ####[facility] [address] [place], [address] Basophils/100 WBC (Bld) 0.4 % Normal 0-1 [facility] Comment on above: Performed By: #### L 100.0100, L500.4050 ####[facility] [address] [place], [address] Eosinophils/100 WBC (Bld) 1.3 % Normal 0-5 [facility] Comment on above: Performed By: #### L 100.0100, L500.4050 ####[facility] [address] [place], [address] Erythrocyte distribution width (RBC) [Ratio] 14.9 % High 11.6-14.6 [facility] Comment on above: Performed By: #### L 100.0100, L500.4050 ####[facility] [address] [place], [address] Hematocrit (Bld) [Volume fraction] 38.9 % Normal 37-47 [facility] Comment on above: Performed By: #### L 100.0100, L500.4050 ####[facility] [address] [place], [address] Hemoglobin (Bld) [Mass/Vol] 13.0 g/dL Normal 12.0-15.0 [facility] Comment on above: Performed By: #### L 100.0100, L500.4050 ####[facility] [address] [place], [address] IG% 0.400 Normal 0.0-0.9 [facility] Comment on above: Result Comment: IG% - Immature Granulocytes (promyelocytes, myelocytes andmetamyelocytes) > 1% indicates that a LEFT SHIFT is Present. Performed By: #### L 100.0100, L500.4050 ####[facility] [address] [place], [address] Lymphocytes/100 WBC (Bld) 22.0 % Normal 19-41 [facility] Comment on above: Performed By: #### L 100.0100, L500.4050 ####[facility] [address] [place], [address] MCH (RBC) [Entitic mass] 36.6 pg High 27.0-32.0 [facility] Comment on above: Performed By: #### L 100.0100, L500.4050 ####[facility] [address] [place], [address] MCHC (RBC) [Mass/Vol] 33.4 g/dL Normal 32-36 [facility] Comment on above: Performed By: #### L 100.0100, L500.4050 ####[facility] [address] [place], [address] MCV (RBC) [Entitic vol] 109.6 fL High 81-99 [facility] Comment on above: Performed By: #### L 100.0100, L500.4050 ####[facility] [address] [place], [address] Monocytes/100 WBC (Bld) 8.5 % Normal 0-10 [facility] Comment on above: Performed By: #### L 100.0100, L500.4050 ####[facility] [address] [place], [address] Neutrophils/100 WBC (Bld) 67.4 % Normal 47-70 [facility] Comment on above: Performed By: #### L 100.0100, L500.4050 ####[facility] [address] [place], [address] Nucleated RBC (Bld) [#/Vol] 0 10*3/uL Normal 0-5 [facility] Comment on above: Performed By: #### L 100.0100, L500.4050 ####[facility] [address] [place], [address] Platelet mean volume (Bld) [Entitic vol] 10.9 fL Normal 6.2-12.0 [facility] Comment on above: Performed By: #### L 100.0100, L500.4050 ####[facility] [address] [place], [address] Platelets (Bld) [#/Vol] 252 10*3/uL Normal 150-450 [facility] Comment on above: Performed By: #### L 100.0100, L500.4050 ####[facility] [address] [place], [address] RBC (Bld) [#/Vol] 3.55 10*6/uL Low 4.2-5.4 [facility] Comment on above: Performed By: #### L 100.0100, L500.4050 ####[facility] [address] [place], [address] RDW SD 60.0 fl High 35.1-43.9 [facility] Comment on above: Performed By: #### L 100.0100, L500.4050 ####[facility] [address] [place], [address] WBC (Bld) [#/Vol] 5.4 10*3/uL Normal 4.4-11.0 [facility] Comment on above: Performed By: #### L 100.0100, L500.4050 ####[facility] [address] [place], [address] Carbon dioxide, total [Moles /volume] in Central venous bloodOrdered By: Umang Pate on 07-10-2024 CO2 [Moles/Vol] 23.6 mmol/L 21.0-32.0 [facility] Chloride assayOrdered By: Lara Pate on 07-10-2024 Chloride [Moles/Vol] 105 mmol/L 98-108 [facility] Comprehensive Metabolic Prof ilon 07-10-2024 Albumin [Mass/Vol] 4.0 g/dL Normal 3.4-4.8 [facility] Comment on above: Performed By: #### L 100.0100, L500.4050 ####[facility] [address] [place], [address] Albumin/Globulin [Mass ratio] 1.4 {ratio} Normal 0.9-2.4 [facility] Comment on above: Performed By: #### L 100.0100, L500.4050 ####[facility] [address] [place], [address] ALK PHOS 90 U/L Normal 35-104 [facility] Comment on above: Performed By: #### L 100.0100, L500.4050 ####[facility] [address] [place], [address] ALT [Catalytic activity/Vol] 14 U/L Normal <=34 [facility] Comment on above: Performed By: #### L 100.0100, L500.4050 ####[facility] [address] [place], [address] AST [Catalytic activity/Vol] 22 U/L Normal <=31 [facility] Comment on above: Performed By: #### L 100.0100, L500.4050 ####[facility] [address] [place], [address] Bilirubin [Mass/Vol] 0.40 mg/dL Normal 0.00-1.30 [facility] Comment on above: Performed By: #### L 100.0100, L500.4050 ####[facility] [address] [place], [address] BUN/CRE 20.2 RATIO High 10-20 [facility] Comment on above: Performed By: #### L 100.0100, L500.4050 ####[facility] [address] [place], [address] Calcium [Mass/Vol] 9.3 mg/dL Normal 7.6-11.0 [facility] Comment on above: Performed By: #### L 100.0100, L500.4050 ####[facility] [address] [place], [address] Chloride [Moles/Vol] 105 mmol/L Normal 98-108 [facility] Comment on above: Performed By: #### L 100.0100, L500.4050 ####[facility] [address] [place], [address] CO2 [Moles/Vol] 23.6 mmol/L Normal 21.0-32.0 [facility] Comment on above: Performed By: #### L 100.0100, L500.4050 ####[facility] [address] [place], [address] Creatinine [Mass/Vol] 0.97 mg/dL Normal 0.70-1.20 [facility] Comment on above: Performed By: #### L 100.0100, L500.4050 ####[facility] [address] [place], [address] ECRCL 50.94 ml/min Normal 50-250 [facility] Comment on above: Performed By: #### L 100.0100, L500.4050 ####[facility] [address] [place], [address] GAP 10 Normal 5-15 [facility] Comment on above: Performed By: #### L 100.0100, L500.4050 ####[facility] [address] [place], [address] GFR/1.73 sq M.predicted among non-blacks MDRD (S/P/Bld) [Vol rate/Area] 59 mL/min/{1.73_m2} Low >60 [facility] Comment on above: Result Comment: mL/m in/1.73m2 CKD-EPI Creatinine Equation (2020) Performed By: #### L 100.0100, L500.4050 ####[facility] [address] [place], [address] Globulin (S) [Mass/Vol] 2.9 g/dL Normal 2.2-4.2 [facility] Comment on above: Performed By: #### L 100.0100, L500.4050 ####[facility] [address] [place], [address] Glucose [Mass/Vol] 112 mg/dL High 70-99 [facility] Comment on above: Performed By: #### L 100.0100, L500.4050 ####[facility] [address] [place], [address] Potassium [Moles/Vol] 4.0 mmol/L Normal 3.3-5.1 [facility] Comment on above: Performed By: #### L 100.0100, L500.4050 ####[facility] [address] [place], [address] Sodium [Moles/Vol] 139 mmol/L Normal 133-145 [facility] Comment on above: Performed By: #### L 100.0100, L500.4050 ####[facility] [address] [place], [address] T PROT 6.9 g/dL Normal 5.9-8.4 [facility] Comment on above: Performed By: #### L 100.0100, L500.4050 ####[facility] [address] [place], [address] Urea nitrogen [Mass/Vol] 20 mg/dL High 4-19 [facility] Comment on above: Performed By: #### L 100.0100, L500.4050 ####[facility] [address] [place], [address] Eosinophil percentageOrdered By: Umang Pate on 07-10-2024 Eosinophils/100 WBC (Bld) 1.3 % 0-5 [facility] Erythrocyte distribution wid th ratioOrdered By: Umang Pate on 07-10-2024 Erythrocyte distribution width (RBC) [Ratio] 14.9 % High 11.6-14.6 [facility] Erythrocyte distribution wid th standard deviationOrdered By: [facility] on 07-10-2024 Erythrocyte distribution width (RBC) [Ratio] 60.0 fl High 35.1-43.9 [facility] Glomerular filtration rate ( GFR) estimation/1.73 sq m using serum, plasma, or whole bOrdered By: Umang Pate on 07-10-2024 GFR/1.73 sq M.predicted among non-blacks MDRD (S/P/Bld) [Vol rate/Area] 59 mL/min/{1.73_m2} Low >60 [facility] Comment on above: mL/min/1.73m2 CKD-EP I Creatinine Equation (2020) Hematocrit Auto (Bld) [Volum e fraction]Ordered By: mUang Pate on 07-10-2024 Hematocrit (Bld) [Volume fraction] 38.9 % 37-47 [facility] Hemoglobin measurementOrdere d By: Umang Pate on 07-10-2024 Hemoglobin (Bld) [Mass/Vol] 13.0 g/dL 12.0-15.0 [facility] Immature granulocytes/100 WB C Auto (Bld)Ordered By: Umang Pate on 07-10-2024 Immature granulocytes/100 WBC (Bld) 0.400 % 0.0-0.9 [facility] Comment on above: IG% - Immature Granu locytes (promyelocytes, myelocytes and metamyelocytes) > 1% indicates that a LEFT SHIFT is Present. Laboratory - Chemistry and C hemistry - challengeOrdered By: Umang Pate on 07-10-2024 AST [Catalytic activity/Vol] 22 U/L <32 [facility] MCV (mean corpuscular volume ) determinationOrdered By: Umang Pate on 07-10-2024 MCV (RBC) [Entitic vol] 109.6 fL High 81-99 [facility] Mean corpuscular hemoglobin (MCH) determinationOrdered By: Umang Pate on 07-10-2024 MCH (RBC) [Entitic mass] 36.6 pg High 27.0-32.0 [facility] Mean corpuscular hemoglobin concentration (MCHC) determinationOrdered By: Umang Pate on 07-10-2024 MCHC (RBC) [Mass/Vol] 33.4 g/dL 32-36 [facility] Mean platelet volume determi nationOrdered By: Umang Pate on 07-10-2024 Platelet mean volume (Bld) [Entitic vol] 10.9 fL 6.2-12.0 [facility] Monocyte percentageOrdered B y: Umang Pate on 07-10-2024 Monocytes/100 WBC (Bld) 8.5 % 0-10 [facility] Neutrophil percentageOrdered By: Umang Pate on 07-10-2024 Neutrophils/100 WBC (Bld) 67.4 % 47-70 [facility] Nucleated red blood cell per centageOrdered By: Umang Pate on 07-10-2024 Nucleated RBC/100 WBC (Bld) [Ratio] 0 % 0-5 [facility] Oncology Visit Reporton 06-21 Oncology Visit Report Normal [facility] Platelet countOrdered By: Lara Pate on 07-10-2024 Platelets (Bld) [#/Vol] 252 10*3/uL 150-450 [facility] Potassium measurement (mass/ volume)Ordered By: Umang Pate on 07-10-2024 Potassium (Unsp spec) [Mass/Vol] 4.0 mmol/L 3.3-5.1 [facility] RBC Auto (Bld) [#/Vol]Ordere d By: Umang Pate on 07-10-2024 RBC (Bld) [#/Vol] 3.55 10*6/uL Low 4.2-5.4 [facility] Serum creatinine measurement (mass/volume)Ordered By: Umang Pate on 07-10-2024 Creatinine [Mass/Vol] 0.97 mg/dL 0.70-1.20 [facility] Serum globulin measurementOr dered By: Umang Pate on 07-10-2024 Globulin (S) [Mass/Vol] 2.9 g/dL 2.2-4.2 [facility] Serum glucose measurement (m ass/volume)Ordered By: Umang Pate on 07-10-2024 Glucose [Mass/Vol] 112 mg/dL High 70-99 [facility] Serum or plasma alanine bey otransferase (ALT) measurementOrdered By: Umang Pate on 07-10-2024 ALT [Catalytic activity/Vol] 14 U/L <35 [facility] Serum or plasma albumin niels urement (mass/volume)Ordered By: Umang Pate on 07-10-2024 Albumin [Mass/Vol] 4.0 g/dL 3.4-4.8 [facility] Serum or plasma albumin/glob ulin mass ratioOrdered By: Umang Pate on 07-10-2024 Albumin/Globulin [Mass ratio] 1.4 {ratio} 0.9-2.4 [facility] Serum or plasma alkaline victor hugo sphatase measurementOrdered By: Umang Pate on 07-10-2024 ALP [Catalytic activity/Vol] 90 U/L 35-104 [facility] Serum or plasma calcium niels urement (mass/volume)Ordered By: Umang Pate on 07-10-2024 Calcium [Mass/Vol] 9.3 mg/dL 7.6-11.0 [facility] Serum or plasma urea nitroge n measurement (mass/volume)Ordered By: Umang Herlinda on 07-10-2024 Urea nitrogen [Mass/Vol] 20 mg/dL High 4-19 [facility] Sodium levelOrdered By: Aram Verajoy on 07-10-2024 Sodium [Moles/Vol] 139 mmol/L 133-145 [facility] Total proteinOrdered By: Seng Verashefali on 07-10-2024 Protein [Mass/Vol] 6.9 g/dL 5.9-8.4 [facility] White blood cell (WBC) count Ordered By: Umang Herlinda on 07-10-2024 WBC (Bld) [#/Vol] 5.4 10*3/uL 4.4-11.0 [facility] CBC W/Diff, Automatedon 12-0 Absolute Lymph 1.45 X10 3/uL Normal 0.83-4.51 [facility] Comment on above: Performed By: #### L 100.0100, L500.4050 ####[facility] [address] [place], [address] Absolute Neut 5.9 X10 3/uL Normal 2.0-7.7 [facility] Comment on above: Performed By: #### L 100.0100, L500.4050 ####[facility] [address] [place], [address] Basophils/100 WBC (Bld) 0.1 % Normal 0-1 [facility] Comment on above: Performed By: #### L 100.0100, L500.4050 ####[facility] [address] [place], [address] Eosinophils/100 WBC (Bld) 0.9 % Normal 0-5 [facility] Comment on above: Performed By: #### L 100.0100, L500.4050 ####[facility] [address] [place], [address] Erythrocyte distribution width (RBC) [Ratio] 14.6 % Normal 11.6-14.6 [facility] Comment on above: Performed By: #### L 100.0100, L500.4050 ####[facility] [address] [place], [address] Hematocrit (Bld) [Volume fraction] 40.3 % Normal 37-47 [facility] Comment on above: Performed By: #### L 100.0100, L500.4050 ####[facility] [address] [place], [address] Hemoglobin (Bld) [Mass/Vol] 13.3 g/dL Normal 12.0-15.0 [facility] Comment on above: Performed By: #### L 100.0100, L500.4050 ####[facility] [address] [place], [address] IG% 0.500 Normal 0.0-0.9 [facility] [place] Comment on above: Result Comment: IG% - Immature Granulocytes (promyelocytes, myelocytes andmetamyelocytes) > 1% indicates that a LEFT SHIFT is Present. Performed By: #### L 100.0100, L500.4050 ####[facility] [address] [place], [address] Lymphocytes/100 WBC (Bld) 17.7 % Low 19-41 [facility] Comment on above: Performed By: #### L 100.0100, L500.4050 ####[facility] [address] [place], [address] MCH (RBC) [Entitic mass] 36.2 pg High 27.0-32.0 [facility] Comment on above: Performed By: #### L 100.0100, L500.4050 ####[facility] [id number] [place], [address] MCHC (RBC) [Mass/Vol] 33.0 g/dL Normal 32-36 [facility] Comment on above: Performed By: #### L 100.0100, L500.4050 ####[facility] [address] [place], [address] MCV (RBC) [Entitic vol] 109.8 fL High 81-99 [facility] Comment on above: Performed By: #### L 100.0100, L500.4050 ####[facility] [address] [place], [address] Monocytes/100 WBC (Bld) 8.1 % Normal 0-10 [facility] Comment on above: Performed By: #### L 100.0100, L500.4050 ####[facility] [address] [place], [address] Neutrophils/100 WBC (Bld) 72.7 % High 47-70 [facility] Comment on above: Performed By: #### L 100.0100, L500.4050 ####[facility] [address] [place], [address] Nucleated RBC (Bld) [#/Vol] 0 10*3/uL Normal 0-5 [facility] Comment on above: Performed By: #### L 100.0100, L500.4050 ####[facility] [address] [place], [address] Platelet mean volume (Bld) [Entitic vol] 10.6 fL Normal 6.2-12.0 [facility] Comment on above: Performed By: #### L 100.0100, L500.4050 ####[facility] [address] [place], [address] Platelets (Bld) [#/Vol] 300 10*3/uL Normal 150-450 [facility] Comment on above: Performed By: #### L 100.0100, L500.4050 ####[facility] [address] [place], [address] RBC (Bld) [#/Vol] 3.67 10*6/uL Low 4.2-5.4 [facility] Comment on above: Performed By: #### L 100.0100, L500.4050 ####[facility] [address] [place], [address] RDW SD 58.3 fl High 35.1-43.9 [facility] Comment on above: Performed By: #### L 100.0100, L500.4050 ####[facility] [address] [place], [address] WBC (Bld) [#/Vol] 8.2 10*3/uL Normal 4.4-11.0 [facility] Comment on above: Performed By: #### L 100.0100, L500.4050 ####[facility] [address] [place], [address] Comprehensive Metabolic Prof [facility] 02-22-2024 Albumin [Mass/Vol] 3.4 g/dL Normal 3.2-5.0 [facility] Comment on above: Performed By: #### L 100.0100, L500.4050 ####[facility] [address] [place], [address] Albumin/Globulin [Mass ratio] 1.0 {ratio} Normal 0.9-2.4 [facility] Comment on above: Performed By: #### L 100.0100, L500.4050 ####[facility] [address] [place], [address] ALK P 85 U/L Normal 45-117 [facility] Comment on above: Performed By: #### L 100.0100, L500.4050 ####[facility] [address] [place], [address] ALT [Catalytic activity/Vol] 29 U/L Normal 13-56 [facility] Comment on above: Performed By: #### L 100.0100, L500.4050 ####[facility] [address] [place], [address] AST [Catalytic activity/Vol] 25 U/L Normal 15-37 [facility] Comment on above: Result Comment: Mode rate Hemolysis, Result may be falsely increased. Performed By: #### L 100.0100, L500.4050 ####[facility] [address] [place], [address] Bilirubin [Mass/Vol] 0.70 mg/dL Normal 0.20-1.00 [facility] Comment on above: Result Comment: For patients on eltrombopag therapy, use of Dimension [place] TBIL is not recommended. Performed By: #### L 100.0100, L500.4050 ####[facility] [address] [place], [address] BUN/CRE 22.5 RATIO High 10-20 [facility] Comment on above: Performed By: #### L 100.0100, L500.4050 ####[facility] [address] [place], [address] CA,Total 8.9 mg/dL Normal 8.5-10.1 [facility] Comment on above: Performed By: #### L 100.0100, L500.4050 ####[facility] [address] [place], [address] Chloride [Moles/Vol] 109 mmol/L High 98-107 [facility] Comment on above: Performed By: #### L 100.0100, L500.4050 ####[facility] [address] [place], [address] CO2 [Moles/Vol] 27.0 mmol/L Normal 21.0-32.0 [facility] Comment on above: Performed By: #### L 100.0100, L500.4050 ####[facility] [address] [place], [address] Creatinine [Mass/Vol] 0.94 mg/dL Normal 0.55-1.02 [facility] Comment on above: Result Comment: The validity of the calculated GFR GFRAA in patients over70 years has not been determined. Clinical correlation isessential. Performed By: #### L 100.0100, L500.4050 ####[facility] [address] [place], [address] ECRCL 52.57 ml/min Normal [facility] Comment on above: Performed By: #### L 100.0100, L500.4050 ####[facility] [address] [place], [address] EST GFR - AA 74 mL/min Normal >60 [facility] Comment on above: Result Comment: Afri can [place] GFR Calc Performed By: #### L 100.0100, L500.4050 ####[facility] [address] [place], [address] GAP 4 Low 5-15 [facility] Comment on above: Performed By: #### L 100.0100, L500.4050 ####[facility] [address] [place], [address] GFR/1.73 sq M.predicted among non-blacks MDRD (S/P/Bld) [Vol rate/Area] 61 mL/min/{1.73_m2} Normal >60 [facility] Comment on above: Result Comment: Non- GFR Calc Performed By: #### L 100.0100, L500.4050 ####[facility] [address] [place], [address] Globulin (S) [Mass/Vol] 3.5 g/dL Normal 2.2-4.2 [facility] Comment on above: Performed By: #### L 100.0100, L500.4050 ####[facility] [address] [place], [address] Glucose [Mass/Vol] 110 mg/dL High 74-106 [facility] Comment on above: Result Comment: Fast ing Glucose result from 100 to 125 mg/dLsuggests IMPAIRED HOMEOSTASIS per A.D.A. criteria. Performed By: #### L 100.0100, L500.4050 ####[facility] [address] [place], [address] Potassium [Moles/Vol] 4.2 mmol/L Normal 3.5-5.1 [facility] Comment on above: Result Comment: Mode rate Hemolysis, Result may be falsely increased. Performed By: #### L 100.0100, L500.4050 ####[facility] [address] [place], [address] Sodium [Moles/Vol] 140 mmol/L Normal 136-145 [facility] Comment on above: Performed By: #### L 100.0100, L500.4050 ####[facility] [address] [place], [address] T PROT 6.9 g/dL Normal 6.4-8.2 [facility] Comment on above: Performed By: #### L 100.0100, L500.4050 ####[facility] [address] [place], [address] Urea nitrogen [Mass/Vol] 21 mg/dL High 7-18 [facility] Comment on above: Performed By: #### L 100.0100, L500.4050 ####[facility] [address], [address] Oncology Visit Reporton 12-0 Oncology Visit Report Normal [facility] Laboratory - Hematology and Cell countsOrdered By: Umang Pate on 11-09-2023 Anisocytosis Ql (Bld) 1+ [facility] Serum or plasma thyroid stim ulating hormone (TSH) measurement (units/volume)Ordered By: Umang Pate on 08-05-2023 TSH Qn 1.06 uIU/mL 0.358-3.74 [facility] Absolute lymphocyte countOrd ered By: Dago Emery on 01-25-2023 Lymphocytes Auto (Unsp spec) [#/Vol] 1.06 10*3/uL 0.83-4.51 [facility] Basophil percentageOrdered B y: Dago Emery on 01-25-2023 Basophils/100 WBC (Bld) 0.2 % 0-1 [facility] Bilirubin [Mass/Vol] 0.40 mg/dL 0.20-1.00 [facility] Comment on above: For patients on eltr ombopag therapy, use of Dimension [place] TBIL is not recommended. Chloride [Moles/Vol] 108 mmol/L 98-107 [facility] Eosinophils/100 WBC (Bld) 1.1 % 0-5 [facility] Glucose [Mass/Vol] 116 mg/dL 74-106 [facility] Comment on above: Fasting Glucose resu lt from 100 to 125 mg/dL suggests IMPAIRED HOMEOSTASIS per A.D.A. criteria. Neutrophils (Bld) [#/Vol] 2.8 10*3/uL 2.0-7.7 [facility] Neutrophils/100 WBC (Bld) 64.3 % 47-70 [facility] Potassium [Moles/Vol] 3.6 mmol/L 3.5-5.1 [facility] Protein [Mass/Vol] 7.1 g/dL 6.4-8.2 [facility] Sodium [Moles/Vol] 141 mmol/L 136-145 [facility] WBC (Bld) [#/Vol] 4.4 10*3/uL 4.4-11.0 [facility] Blood erythrocytes count (nu mber/volume)Ordered By: Dago Emery on 01-25-2023 RBC (Bld) [#/Vol] 3.25 10*6/uL 4.2-5.4 [facility] Blood hemoglobin measurement (mass/volume)Ordered By: Dago Emery on 01-25-2023 Hemoglobin (Bld) [Mass/Vol] 11.8 g/dL 12.0-15.0 [facility] Blood lymphocytes/100 leukoc ytesOrdered By: Dago Emery on 01-25-2023 Lymphocytes/100 WBC (Bld) 24.1 % 19-41 [facility] Blood manual differential co mment interpretation (narrative result)Ordered By: Dago Emery on 01-25-2023 Manual differential comment Jack (Bld) [Interp] SCANNED [facility] Blood monocytes/100 leukocyt esOrdered By: Dago Emery on 01-25-2023 Monocytes/100 WBC (Bld) 9.8 % 0-10 [facility] Blood platelet mean volumeOr dered By: Dago Emery on 01-25-2023 Platelet mean volume (Bld) [Entitic vol] 11.2 fL 6.2-12.0 [facility] Determination of erythrocyte mean corpuscular volume (MCV)Ordered By: Dago Emery on 01-25-2023 MCV (RBC) [Entitic vol] 113.8 fL 81-99 [facility] Hematocrit Auto (Bld) [Volum e fraction]Ordered By: Dago Emery on 01-25-2023 Hematocrit (Bld) [Volume fraction] 37.0 % 37-47 [facility] Laboratory - Chemistry and C hemistry - challengeOrdered By: Dago Emery on 01-25-2023 ALP [Catalytic activity/Vol] 82 U/L 45-117 [facility] ALT [Catalytic activity/Vol] 15 U/L 13-56 [facility] CO2 [Moles/Vol] 26.0 mmol/L 21.0-32.0 [facility] Globulin (S) [Mass/Vol] 3.8 g/dL 2.2-4.2 [facility] Urea nitrogen/Creatinine [Mass ratio] 18.6 mg/mg 10-20 [facility] Laboratory - Hematology and Cell countsOrdered By: Dago Emery on 01-25-2023 Anisocytosis Ql (Bld) 2+ [facility] Erythrocyte distribution width (RBC) [Entitic vol] 65.5 fL 35.1-43.9 [facility] Erythrocyte distribution width (RBC) [Ratio] 15.7 % 11.6-14.6 [facility] Immature granulocytes/100 WBC (Bld) 0.500 % 0.0-0.9 [facility] Comment on above: IG% - Immature Granu locytes (promyelocytes, myelocytes and metamyelocytes) > 1% indicates that a LEFT SHIFT is Present. MCH (RBC) [Entitic mass] 36.3 pg 27.0-32.0 [facility] Nucleated RBC/100 WBC (Bld) [Ratio] 0 % 0-5 [facility] MCHC Auto (RBC) [Mass/Vol]Or dered By: Dago Emery on 01-25-2023 MCHC (RBC) [Mass/Vol] 31.9 g/dL 32-36 [facility] Macrocytes detectionOrdered By: Dago Emery on 01-25-2023 Macrocytes Ql (Bld) 2+ [facility] No Panel InformationOrdered By: Dago Emery on 01-25-2023 Estimated GFR (MDRD) Amer 67 mL/min >60 [facility] Comment on above: GFR Calc Estimated GFR (MDRD) Non-Af Amer 56 mL/min >60 [facility] Comment on above: Non- GFR Calc Thyroid Stimulating Hormone (TSH) 1.65 uIU/mL 0.358-3.74 [facility] Vitamin D 25-Hydroxy 39.0 ng/mL [facility] Comment on above: Vitamin D 25(OH) Sta tus Range Deficiency <20 ng/mL (50nmol/L) Insufficiency 20 - 30 ng/mL (50 - 75 nmol/L) Sufficiency 30 - 100 ng/mL (75 - 250 nmol/L) Toxicity >100 ng/mL (>250 nmol/L) Platelets bldOrdered By: Dago Emery on 01-25-2023 Platelets (Bld) [#/Vol] 265 10*3/uL 150-450 [facility] Serum or plasma albumin niels urement (mass/volume)Ordered By: Dago Emery on 01-25-2023 Albumin [Mass/Vol] 3.3 g/dL 3.2-5.0 [facility] Serum or plasma albumin/glob ulin mass ratioOrdered By: Dago Emery on 01-25-2023 Albumin/Globulin [Mass ratio] 0.9 {ratio} 0.9-2.4 [facility] Serum or plasma calcium niels urement (mass/volume)Ordered By: Dago Emery on 01-25-2023 Calcium [Mass/Vol] 9.1 mg/dL 8.5-10.1 [facility] Serum or plasma creatinine m easurement (mass/volume)Ordered By: Dago Emery on 01-25-2023 Creatinine [Mass/Vol] 1.02 mg/dL 0.55-1.02 [facility] Comment on above: The validity of the calculated GFR & GFRAA in patients over 70 years has not been determined. Clinical correlation is essential. Serum or plasma urea nitroge n measurement (mass/volume)Ordered By: Dago Emery on 01-25-2023 Urea nitrogen [Mass/Vol] 19 mg/dL 7-18 [facility] Thin prep Papanicolaou smear with manual screeningOrdered By: Dago Emery on 01-25-2023 Thin prep Papanicolaou smear with manual screening 25 U/L 15-37 [facility] Thin prep Papanicolaou smear with manual screening 7 5-15 [facility] Absolute lymphocyte countOrd ered By: Carolyn Ruvalcaba on 11-04-2022 Lymphocytes Auto (Unsp spec) [#/Vol] 1.04 10*3/uL 0.83-4.51 [facility] Basophil percentageOrdered B y: Carolyn Ruvalcaba on 11-04-2022 Basophils/100 WBC (Bld) 0.5 % 0-1 [facility] Bilirubin [Mass/Vol] 0.50 mg/dL 0.20-1.00 [facility] Comment on above: For patients on eltr ombopag therapy, use of Dimension [place] TBIL is not recommended. Chloride [Moles/Vol] 108 mmol/L 98-107 [facility] Eosinophils/100 WBC (Bld) 1.1 % 0-5 [facility] Glucose [Mass/Vol] 127 mg/dL 74-106 [facility] Comment on above: Fasting Glucose resu lt greater than or equal to 126 mg/dL suggests DIABETES MELLITUS per A.D.A. criteria. Neutrophils (Bld) [#/Vol] 4.6 10*3/uL 2.0-7.7 [facility] Neutrophils/100 WBC (Bld) 74.8 % 47-70 [facility] Potassium [Moles/Vol] 3.8 mmol/L 3.5-5.1 [facility] Protein [Mass/Vol] 7.4 g/dL 6.4-8.2 [facility] Sodium [Moles/Vol] 140 mmol/L 136-145 [facility] WBC (Bld) [#/Vol] 6.2 10*3/uL 4.4-11.0 [facility] Blood erythrocytes count (nu mber/volume)Ordered By: Carolyn Ruvalcaba on 11-04-2022 RBC (Bld) [#/Vol] 3.43 10*6/uL 4.2-5.4 [facility] Blood hemoglobin measurement (mass/volume)Ordered By: Carolyn Ruvalcaba on 11-04-2022 Hemoglobin (Bld) [Mass/Vol] 12.0 g/dL 12.0-15.0 [facility] Blood lymphocytes/100 leukoc ytesOrdered By: Carolyn Ruvalcaba on 11-04-2022 Lymphocytes/100 WBC (Bld) 16.8 % 19-41 [facility] Blood monocytes/100 leukocyt esOrdered By: Carolyn Ruvalcaba on 11-04-2022 Monocytes/100 WBC (Bld) 6.5 % 0-10 [facility] Blood platelet mean volumeOr dered By: Carolyn Ruvalcaba on 11-04-2022 Platelet mean volume (Bld) [Entitic vol] 10.0 fL 6.2-12.0 [facility] Determination of erythrocyte mean corpuscular volume (MCV)Ordered By: Carolyn Ruvalcaba on 11-04-2022 MCV (RBC) [Entitic vol] 110.5 fL 81-99 [facility] Hematocrit Auto (Bld) [Volum e fraction]Ordered By: Carolyn Ruvalcaba on 11-04-2022 Hematocrit (Bld) [Volume fraction] 37.9 % 37-47 [facility] Laboratory - Chemistry and C hemistry - challengeOrdered By: Carolyn Ruvalcaba on 11-04-2022 ALP [Catalytic activity/Vol] 89 U/L 45-117 [facility] ALT [Catalytic activity/Vol] 18 U/L 13-56 [facility] CO2 [Moles/Vol] 25.0 mmol/L 21.0-32.0 [facility] Globulin (S) [Mass/Vol] 4.1 g/dL 2.2-4.2 [facility] Urea nitrogen/Creatinine [Mass ratio] 14.8 mg/mg 10-20 [facility] Laboratory - Hematology and Cell countsOrdered By: Carolyn Ruvalcaba on 11-04-2022 Erythrocyte distribution width (RBC) [Entitic vol] 62.5 fL 35.1-43.9 [facility] Erythrocyte distribution width (RBC) [Ratio] 15.6 % 11.6-14.6 [facility] Immature granulocytes/100 WBC (Bld) 0.300 % 0.0-0.9 [facility] Comment on above: IG% - Immature Granu locytes (promyelocytes, myelocytes and metamyelocytes) > 1% indicates that a LEFT SHIFT is Present. MCH (RBC) [Entitic mass] 35.0 pg 27.0-32.0 [facility] Nucleated RBC/100 WBC (Bld) [Ratio] 0 % 0-5 [facility] MCHC Auto (RBC) [Mass/Vol]Or dered By: Carolyn Ruvalcaba on 11-04-2022 MCHC (RBC) [Mass/Vol] 31.7 g/dL 32-36 [facility] No Panel InformationOrdered By: Carolyn Ruvalcaba on 11-04-2022 Estimated Creatinine Clearance Calc 41.46 ml/min [facility] Estimated GFR (MDRD) Amer 73 mL/min >60 [facility] Comment on above: GFR Calc Estimated GFR (MDRD) Non-Af Amer 60 mL/min >60 [facility] Comment on above: Non- GFR Calc Platelets bldOrdered By: Nayan Ruvalcaba on 11-04-2022 Platelets (Bld) [#/Vol] 298 10*3/uL 150-450 [facility] Serum or plasma albumin niels urement (mass/volume)Ordered By: Carolyn Ruvalcaba on 11-04-2022 Albumin [Mass/Vol] 3.3 g/dL 3.2-5.0 [facility] Serum or plasma albumin/glob ulin mass ratioOrdered By: Carolyn Ruvalcaba on 11-04-2022 Albumin/Globulin [Mass ratio] 0.8 {ratio} 0.9-2.4 [facility] Serum or plasma calcium niels urement (mass/volume)Ordered By: Carolyn Ruvalcaba on 11-04-2022 Calcium [Mass/Vol] 9.2 mg/dL 8.5-10.1 [facility] Serum or plasma creatinine m easurement (mass/volume)Ordered By: Carolyn Ruvalcaba on 11-04-2022 Creatinine [Mass/Vol] 0.95 mg/dL 0.55-1.02 [facility] Comment on above: The validity of the calculated GFR & GFRAA in patients over 70 years has not been determined. Clinical correlation is essential. Serum or plasma urea nitroge n measurement (mass/volume)Ordered By: Carolyn Ruvalcaba on 11-04-2022 Urea nitrogen [Mass/Vol] 14 mg/dL 7-18 [facility] Thin prep Papanicolaou smear with manual screeningOrdered By: [facility] on 11-04-2022 Thin prep Papanicolaou smear with manual screening 19 U/L 15-37 [facility] Thin prep Papanicolaou smear with manual screening 7 5-15 [facility] Absolute lymphocyte countOrd ered By: Dago Emery on 10-10-2022 Lymphocytes Auto (Unsp spec) [#/Vol] 1.27 10*3/uL 0.83-4.51 [facility] Basophil percentageOrdered B y: Dago Emery on 10-10-2022 Basophils/100 WBC (Bld) 0.4 % 0-1 [facility] Eosinophils/100 WBC (Bld) 5.2 % 0-5 [facility] Neutrophils (Bld) [#/Vol] 3.2 10*3/uL 2.0-7.7 [facility] Neutrophils/100 WBC (Bld) 61.5 % 47-70 [facility] WBC (Bld) [#/Vol] 5.2 10*3/uL 4.4-11.0 [facility] Chloride [Moles/Vol] 109 mmol/L 98-107 [facility] Glucose [Mass/Vol] 101 mg/dL 74-106 [facility] Comment on above: Fasting Glucose resu lt from 100 to 125 mg/dL suggests IMPAIRED HOMEOSTASIS per A.D.A. criteria. Potassium [Moles/Vol] 3.9 mmol/L 3.5-5.1 [facility] Sodium [Moles/Vol] 138 mmol/L 136-145 [facility] Blood erythrocytes count (nu mber/volume)Ordered By: Dago Emery on 10-10-2022 RBC (Bld) [#/Vol] 2.93 10*6/uL 4.2-5.4 [facility] Blood hemoglobin measurement (mass/volume)Ordered By: Dago Emery on 10-10-2022 Hemoglobin (Bld) [Mass/Vol] 10.5 g/dL 12.0-15.0 [facility] Blood lymphocytes/100 leukoc ytesOrdered By: Dago Emery on 10-10-2022 Lymphocytes/100 WBC (Bld) 24.4 % 19-41 [facility] Blood monocytes/100 leukocyt esOrdered By: Dago Emery on 10-10-2022 Monocytes/100 WBC (Bld) 8.1 % 0-10 [facility] Blood platelet mean volumeOr dered By: Dago Emery on 10-10-2022 Platelet mean volume (Bld) [Entitic vol] 10.3 fL 6.2-12.0 [facility] Determination of erythrocyte mean corpuscular volume (MCV)Ordered By: Dago Emery on 10-10-2022 MCV (RBC) [Entitic vol] 109.6 fL 81-99 [facility] Hematocrit Auto (Bld) [Volum e fraction]Ordered By: Dago Emery 10-10-2022 Hematocrit (Bld) [Volume fraction] 32.1 % 37-47 [facility] [facility] - Chemistry and C hemistry - challengeOrdered By: Dago Emery 10-10-2022 CO2 [Moles/Vol] 24.0 mmol/L 21.0-32.0 [facility] Urea nitrogen/Creatinine [Mass ratio] 24.1 mg/mg 10-20 [facility] [place] [facility] - Hematology and Cell countsOrdered By: Dago Emery 10-10-2022 Erythrocyte distribution width (RBC) [Entitic vol] 54.4 fL 35.1-43.9 [facility] [place] Erythrocyte distribution width (RBC) [Ratio] 13.9 % 11.6-14.6 [facility] Immature granulocytes/100 WBC (Bld) 0.400 % 0.0-0.9 [facility] [place] Comment on above: IG% - Immature Granu locytes (promyelocytes, myelocytes and metamyelocytes) > 1% indicates that a LEFT SHIFT is Present. MCH (RBC) [Entitic mass] 35.8 pg 27.0-32.0 [facility] Nucleated RBC/100 WBC (Bld) [Ratio] 0 % 0-5 [facility] MCHC Auto (RBC) [Mass/Vol]Or dered By: Dago Emery on 10-10-2022 MCHC (RBC) [Mass/Vol] 32.7 g/dL 32-36 [facility] No Panel InformationOrdered By: Dago Emery on 10-10-2022 Estimated Creatinine Clearance Calc 41.05 ml/min [facility] Estimated GFR (MDRD) Amer 69 mL/min >60 [facility] [place] Comment on above: GFR Calc Estimated GFR (MDRD) Non-Af Amer 57 mL/min >60 [facility] [place] Comment on above: Non- GFR Calc Platelets bldOrdered By: aDgo Emery on 10-10-2022 Platelets (Bld) [#/Vol] 409 10*3/uL 150-450 [facility] [place] Serum or plasma calcium niels urement (mass/volume)Ordered By: Dago Emery on 10-10-2022 Calcium [Mass/Vol] 8.7 mg/dL 8.5-10.1 [facility] Serum or plasma creatinine m easurement (mass/volume)Ordered By: Dago Emery on 10-10-2022 Creatinine [Mass/Vol] 1.00 mg/dL 0.55-1.02 [facility] Comment on above: The validity of the calculated GFR & GFRAA in patients over 70 years has not been determined. Clinical correlation is essential. Serum or plasma urea nitroge n measurement (mass/volume)Ordered By: Dago Emery on 10-10-2022 Urea nitrogen [Mass/Vol] 24 mg/dL 7-18 [facility] [place] Thin prep Papanicolaou smear with manual screeningOrdered By: Dago Emery 10-10-2022 Thin prep Papanicolaou smear with manual screening 5 5-15 [facility] Absolute lymphocyte countOrd ered By: Dr. Pate on 08-05-2022 Lymphocytes Auto (Unsp spec) [#/Vol] 1.00 10*3/uL 0.83-4.51 [facility] [place] Basophil percentageOrdered B y: Dr. Pate on 08-05-2022 Basophils/100 WBC (Bld) 0.6 % 0-1 [facility] [place] Chloride [Moles/Vol] 111 mmol/L 98-107 [facility] Eosinophils/100 WBC (Bld) 2.5 % 0-5 [facility] [place] Glucose [Mass/Vol] 116 mg/dL 74-106 [facility] Comment on above: Fasting Glucose resu lt from 100 to 125 mg/dL suggests IMPAIRED HOMEOSTASIS per A.D.A. criteria. Neutrophils (Bld) [#/Vol] 3.5 10*3/uL 2.0-7.7 [facility] [place] Neutrophils/100 WBC (Bld) 67.0 % 47-70 [facility] [place] Potassium [Moles/Vol] 3.9 mmol/L 3.5-5.1 [facility] Comment on above: Slight Hemolysis, Re sult may be falsely increased. Sodium [Moles/Vol] 141 mmol/L 136-145 [facility] WBC (Bld) [#/Vol] 5.3 10*3/uL 4.4-11.0 [facility] Blood erythrocytes count (nu mber/volume)Ordered By: Dr. Pate on 08-05-2022 RBC (Bld) [#/Vol] 3.36 10*6/uL 4.2-5.4 [facility] Blood hemoglobin measurement (mass/volume)Ordered By: Dr. Pate on 08-05-2022 Hemoglobin (Bld) [Mass/Vol] 12.4 g/dL 12.0-15.0 [facility] [place] Blood lymphocytes/100 leukoc ytesOrdered By: Dr. Pate on 08-05-2022 Lymphocytes/100 WBC (Bld) 18.9 % 19-41 [facility] [place] Blood monocytes/100 leukocyt esOrdered By: Dr. Pate on 08-05-2022 Monocytes/100 WBC (Bld) 10.2 % 0-10 [facility] Blood platelet mean volumeOr dered By: Dr. Pate on 08-05-2022 Platelet mean volume (Bld) [Entitic vol] 10.6 fL 6.2-12.0 [facility] [place] Determination of erythrocyte mean corpuscular volume (MCV)Ordered By: Dr. Pate on 08-05-2022 MCV (RBC) [Entitic vol] 114.6 fL 81-99 [facility] [place] Hematocrit Auto (Bld) [Volum e fraction]Ordered By: Dr. Pate on 08-05-2022 Hematocrit (Bld) [Volume fraction] 38.5 % 37-47 [facility] [place] Laboratory - Chemistry and C hemistry - challengeOrdered By: Dr. Pate on 08-05-2022 CO2 [Moles/Vol] 24.0 mmol/L 21.0-32.0 [facility] [place] Urea nitrogen/Creatinine [Mass ratio] 23.1 mg/mg 10-20 [facility] [place] Laboratory - Hematology and Cell countsOrdered By: Dr. Pate on 08-05-2022 Erythrocyte distribution width (RBC) [Entitic vol] 59.2 fL 35.1-43.9 [facility] [place] Erythrocyte distribution width (RBC) [Ratio] 14.0 % 11.6-14.6 [facility] [place] Immature granulocytes/100 WBC (Bld) 0.800 % 0.0-0.9 [facility] [place] Comment on above: IG% - Immature Granu locytes (promyelocytes, myelocytes and metamyelocytes) > 1% indicates that a LEFT SHIFT is Present. MCH (RBC) [Entitic mass] 36.9 pg 27.0-32.0 [facility] [place] Nucleated RBC/100 WBC (Bld) [Ratio] 0 % 0-5 [facility] [place] MCHC Auto (RBC) [Mass/Vol]Or dered By: Dr. Pate on 08-05-2022 MCHC (RBC) [Mass/Vol] 32.2 g/dL 32-36 [facility] No Panel InformationOrdered By: Dr. Pate on 08-05-2022 Estimated Creatinine Clearance Calc 37.88 ml/min [facility] [place] Estimated GFR (MDRD) Amer 66 mL/min >60 [facility] [place] Comment on above: GFR Calc Estimated GFR (MDRD) Non-Af Amer 54 mL/min >60 [facility] [place] Comment on above: Non- GFR Calc Platelets bldOrdered By: Dr. Pate on 08-05-2022 Platelets (Bld) [#/Vol] 327 10*3/uL 150-450 [facility] [place] Serum or plasma albumin niels urement (mass/volume)Ordered By: Dr. Pate on 08-05-2022 Albumin [Mass/Vol] 3.3 g/dL 3.2-5.0 [facility] Serum or plasma calcium niels urement (mass/volume)Ordered By: Dr. Pate on 08-05-2022 Calcium [Mass/Vol] 8.9 mg/dL 8.5-10.1 [facility] Serum or plasma creatinine m easurement (mass/volume)Ordered By: Dr. Pate on 08-05-2022 Creatinine [Mass/Vol] 1.04 mg/dL 0.55-1.02 [facility] Comment on above: The validity of the calculated GFR & GFRAA in patients over 70 years has not been determined. Clinical correlation is essential. Serum or plasma urea nitroge n measurement (mass/volume)Ordered By: Dr. Pate on 08-05-2022 Urea nitrogen [Mass/Vol] 24 mg/dL 7-18 [facility] [place] Thin prep Papanicolaou smear with manual screeningOrdered By: Dr. Pate on 08-05-2022 Thin prep Papanicolaou smear with manual screening 6 5-15 [facility] [place] Absolute lymphocyte countOrd ered By: Dr. Pate on 07-20-2022 Lymphocytes Auto (Unsp spec) [#/Vol] 1.03 10*3/uL 0.83-4.51 [facility] [place] Basophil percentageOrdered B y: Dr. Pate on 07-20-2022 Basophils/100 WBC (Bld) 0.3 % 0-1 [facility] [place] Bilirubin [Mass/Vol] 0.40 mg/dL 0.20-1.00 [facility] Comment on above: For patients on eltr ombopag therapy, use of Dimension [place] TBIL is not recommended. Chloride [Moles/Vol] 107 mmol/L 98-107 [facility] Eosinophils/100 WBC (Bld) 2.4 % 0-5 [facility] [place] Glucose [Mass/Vol] 109 mg/dL 74-106 [facility] Comment on above: Fasting Glucose resu lt from 100 to 125 mg/dL suggests IMPAIRED HOMEOSTASIS per A.D.A. criteria. Neutrophils (Bld) [#/Vol] 4.0 10*3/uL 2.0-7.7 [facility] Neutrophils/100 WBC (Bld) 68.9 % 47-70 [facility] Potassium [Moles/Vol] 4.0 mmol/L 3.5-5.1 [facility] Protein [Mass/Vol] 7.2 g/dL 6.4-8.2 [facility] Sodium [Moles/Vol] 140 mmol/L 136-145 [facility] WBC (Bld) [#/Vol] 5.8 10*3/uL 4.4-11.0 [facility] Blood erythrocytes count (nu mber/volume)Ordered By: Dr. Pate on 07-20-2022 RBC (Bld) [#/Vol] 3.25 10*6/uL 4.2-5.4 [facility] Blood hemoglobin measurement (mass/volume)Ordered By: Dr. Pate on 07-20-2022 Hemoglobin (Bld) [Mass/Vol] 12.2 g/dL 12.0-15.0 [facility] Blood lymphocytes/100 leukoc ytesOrdered By: Dr. Pate on 07-20-2022 Lymphocytes/100 WBC (Bld) 17.7 % 19-41 [facility] [place] Blood monocytes/100 leukocyt esOrdered By: Dr. Pate on 07-20-2022 Monocytes/100 WBC (Bld) 10.2 % 0-10 [facility] Blood platelet mean volumeOr dered By: Dr. Pate on 07-20-2022 Platelet mean volume (Bld) [Entitic vol] 11.0 fL 6.2-12.0 [facility] Determination of erythrocyte mean corpuscular volume (MCV)Ordered By: Dr. Pate on 07-20-2022 MCV (RBC) [Entitic vol] 115.1 fL 81-99 [facility] [place] Hematocrit Auto (Bld) [Volum e fraction]Ordered By: Dr. Pate on 07-20-2022 Hematocrit (Bld) [Volume fraction] 37.4 % 37-47 [facility] [place] [facility] - Chemistry and C hemistry - challengeOrdered By: Dr. Pate on 07-20-2022 ALP [Catalytic activity/Vol] 89 U/L 45-117 [facility] [place] ALT [Catalytic activity/Vol] 26 U/L 13-56 [facility] CO2 [Moles/Vol] 25.0 mmol/L 21.0-32.0 [facility] [place] Globulin (S) [Mass/Vol] 3.9 g/dL 2.2-4.2 [facility] [place] Urea nitrogen/Creatinine [Mass ratio] 18.1 mg/mg 10-20 [facility] [place] [facility] - Hematology and Cell countsOrdered By: Dr. Pate on 07-20-2022 Erythrocyte distribution width (RBC) [Entitic vol] 63.6 fL 35.1-43.9 [facility] [place] Erythrocyte distribution width (RBC) [Ratio] 15.0 % 11.6-14.6 [facility] [place] Immature granulocytes/100 WBC (Bld) 0.500 % 0.0-0.9 [facility] [place] Comment on above: IG% - Immature Granu locytes (promyelocytes, myelocytes and metamyelocytes) > 1% indicates that a LEFT SHIFT is Present. MCH (RBC) [Entitic mass] 37.5 pg 27.0-32.0 [facility] [place] Nucleated RBC/100 WBC (Bld) [Ratio] 0 % 0-5 [facility] [place] MCHC Auto (RBC) [Mass/Vol]Or dered By: Dr. Pate on 07-20-2022 MCHC (RBC) [Mass/Vol] 32.6 g/dL 32-36 [facility] No Panel InformationOrdered By: Dr. Pate on 07-20-2022 Estimated GFR (MDRD) Amer 58 mL/min >60 [facility] [place] Comment on above: GFR Calc Estimated GFR (MDRD) Non-Af Amer 48 mL/min >60 [facility] [place] Comment on above: Non- GFR Calc Thyroid Stimulating Hormone (TSH) 1.57 uIU/mL 0.358-3.74 [facility] [place] Vitamin D 25-Hydroxy 32.7 ng/mL [facility] Comment on above: Vitamin D 25(OH) Sta tus Range Deficiency <20 ng/mL (50nmol/L) Insufficiency 20 - 30 ng/mL (50 - 75 nmol/L) Sufficiency 30 - 100 ng/mL (75 - 250 nmol/L) Toxicity >100 ng/mL (>250 nmol/L) Platelets bldOrdered By: Dr. Pate on 07-20-2022 Platelets (Bld) [#/Vol] 262 10*3/uL 150-450 [facility] [place] Serum or plasma albumin niels urement (mass/volume)Ordered By: Dr. Pate on 07-20-2022 Albumin [Mass/Vol] 3.3 g/dL 3.2-5.0 [facility] Serum or plasma albumin/glob ulin mass ratioOrdered By: Dr. Pate on 07-20-2022 Albumin/Globulin [Mass ratio] 0.8 {ratio} 0.9-2.4 [facility] [place] Serum or plasma calcium niels urement (mass/volume)Ordered By: Dr. Pate on 07-20-2022 Calcium [Mass/Vol] 8.9 mg/dL 8.5-10.1 [facility] Serum or plasma creatinine m easurement (mass/volume)Ordered By: Dr. Pate on 07-20-2022 Creatinine [Mass/Vol] 1.16 mg/dL 0.55-1.02 [facility] Comment on above: The validity of the calculated GFR & GFRAA in patients over 70 years has not been determined. Clinical correlation is essential. Serum or plasma urea nitroge n measurement (mass/volume)Ordered By: Dr. Pate on 07-20-2022 Urea nitrogen [Mass/Vol] 21 mg/dL 7-18 [facility] [place] Thin prep Papanicolaou smear with manual screeningOrdered By: Dr. Pate on 07-20-2022 Thin prep Papanicolaou smear with manual screening 28 U/L 15-37 [facility] [place] Thin prep Papanicolaou smear with manual screening 8 5-15 [facility] [place] Absolute lymphocyte countOrd ered By: Dr. Pate on 05-06-2022 Lymphocytes Auto (Unsp spec) [#/Vol] 1.13 10*3/uL 0.83-4.51 [facility] [place] Basophil percentageOrdered B y: Dr. Pate on 05-06-2022 Basophils/100 WBC (Bld) 0.2 % 0-1 [facility] [place] Bilirubin [Mass/Vol] 0.40 mg/dL 0.20-1.00 [facility] Comment on above: For patients on eltr ombopag therapy, use of Dimension [place] TBIL is not recommended. Chloride [Moles/Vol] 106 mmol/L 98-107 [facility] Eosinophils/100 WBC (Bld) 1.0 % 0-5 [facility] [place] Glucose [Mass/Vol] 133 mg/dL 74-106 [facility] Comment on above: Fasting Glucose resu lt greater than or equal to 126 mg/dL suggests DIABETES MELLITUS per A.D.A. criteria. Neutrophils (Bld) [#/Vol] 2.5 10*3/uL 2.0-7.7 [facility] [place] Neutrophils/100 WBC (Bld) 60.9 % 47-70 [facility] [place] Potassium [Moles/Vol] 3.4 mmol/L 3.5-5.1 [facility] Protein [Mass/Vol] 7.2 g/dL 6.4-8.2 [facility] Sodium [Moles/Vol] 140 mmol/L 136-145 [facility] WBC (Bld) [#/Vol] 4.1 10*3/uL 4.4-11.0 [facility] Blood erythrocytes count (nu mber/volume)Ordered By: Dr. Pate on 05-06-2022 RBC (Bld) [#/Vol] 3.32 10*6/uL 4.2-5.4 [facility] Blood hemoglobin measurement (mass/volume)Ordered By: Dr. Pate on 05-06-2022 Hemoglobin (Bld) [Mass/Vol] 12.4 g/dL 12.0-15.0 [facility] [place] Blood lymphocytes/100 leukoc ytesOrdered By: Dr. Pate on 05-06-2022 Lymphocytes/100 WBC (Bld) 27.5 % 19-41 [facility] [place] Blood monocytes/100 leukocyt esOrdered By: Dr. Pate on 05-06-2022 Monocytes/100 WBC (Bld) 9.7 % 0-10 [facility] [place] Blood platelet mean volumeOr dered By: Dr. Pate on 05-06-2022 Platelet mean volume (Bld) [Entitic vol] 10.6 fL 6.2-12.0 [facility] [place] Determination of erythrocyte mean corpuscular volume (MCV)Ordered By: Dr. Pate on 05-06-2022 MCV (RBC) [Entitic vol] 112.0 fL 81-99 [facility] [place] Hematocrit Auto (Bld) [Volum e fraction]Ordered By: Dr. Pate on 05-06-2022 Hematocrit (Bld) [Volume fraction] 37.2 % 37-47 [facility] [place] Laboratory - Chemistry and C hemistry - challengeOrdered By: Dr. Pate on 05-06-2022 ALP [Catalytic activity/Vol] 75 U/L 45-117 [facility] [place] ALT [Catalytic activity/Vol] 17 U/L 13-56 [facility] [place] CO2 [Moles/Vol] 27.0 mmol/L 21.0-32.0 [facility] [place] Globulin (S) [Mass/Vol] 3.8 g/dL 2.2-4.2 [facility] [place] Urea nitrogen/Creatinine [Mass ratio] 20.2 mg/mg 10-20 [facility] [place] [facility] - Hematology and Cell countsOrdered By: Dr. Pate on 05-06-2022 Erythrocyte distribution width (RBC) [Entitic vol] 62.5 fL 35.1-43.9 [facility] [place] Erythrocyte distribution width (RBC) [Ratio] 15.3 % 11.6-14.6 [facility] [place] Immature granulocytes/100 WBC (Bld) 0.700 % 0.0-0.9 [facility] [place] Comment on above: IG% - Immature Granu locytes (promyelocytes, myelocytes and metamyelocytes) > 1% indicates that a LEFT SHIFT is Present. MCH (RBC) [Entitic mass] 37.3 pg 27.0-32.0 [facility] [place] Nucleated RBC/100 WBC (Bld) [Ratio] 0 % 0-5 [facility] [place] MCHC Auto (RBC) [Mass/Vol]Or dered By: Dr. Pate on 05-06-2022 MCHC (RBC) [Mass/Vol] 33.3 g/dL 32-36 [facility] No Panel InformationOrdered By: Dr. Pate on 05-06-2022 Estimated Creatinine Clearance Calc 36.73 ml/min [facility] [place] Estimated GFR (MDRD) Amer 62 mL/min >60 [facility] [place] Comment on above: GFR Calc Estimated GFR (MDRD) Non-Af Amer 52 mL/min >60 [facility] [place] Comment on above: Non- GFR Calc Platelets bldOrdered By: Dr. Pate on 05-06-2022 Platelets (Bld) [#/Vol] 239 10*3/uL 150-450 [facility] [place] Serum or plasma albumin niels urement (mass/volume)Ordered By: Dr. Pate on 05-06-2022 Albumin [Mass/Vol] 3.4 g/dL 3.2-5.0 [facility] Serum or plasma albumin/glob ulin mass ratioOrdered By: Dr. Pate on 05-06-2022 Albumin/Globulin [Mass ratio] 0.9 {ratio} 0.9-2.4 [facility] [place] Serum or plasma calcium niels urement (mass/volume)Ordered By: Dr. Pate on 05-06-2022 Calcium [Mass/Vol] 8.9 mg/dL 8.5-10.1 [facility] Serum or plasma creatinine m easurement (mass/volume)Ordered By: Dr. Pate on 05-06-2022 Creatinine [Mass/Vol] 1.09 mg/dL 0.55-1.02 [facility] Comment on above: The validity of the calculated GFR & GFRAA in patients over 70 years has not been determined. Clinical correlation is essential. Serum or plasma urea nitroge n measurement (mass/volume)Ordered By: Dr. Pate on 05-06-2022 Urea nitrogen [Mass/Vol] 22 mg/dL 7-18 [facility] [place] Thin prep Papanicolaou smear with manual screeningOrdered By: Dr. Pate on 05-06-2022 Thin prep Papanicolaou smear with manual screening 22 U/L 15- [facility] [place] Thin prep Papanicolaou smear with manual screening 7 5-15 [facility] [place] Absolute lymphocyte countOrd ered By: Dr. Pate on 02-04-2022 Lymphocytes Auto (Unsp spec) [#/Vol] 1.02 10*3/uL 0.83-4.51 [facility] [place] Basophil percentageOrdered B y: Dr. Pate on 02-04-2022 Basophils/100 WBC (Bld) 0.5 % 0-1 [facility] [place] Bilirubin [Mass/Vol] 0.50 mg/dL 0.20-1.00 [facility] Comment on above: For patients on eltr ombopag therapy, use of Dimension [place] TBIL is not recommended. Chloride [Moles/Vol] 106 mmol/L 98-107 [facility] Eosinophils/100 WBC (Bld) 0.5 % 0-5 [facility] [place] Glucose [Mass/Vol] 117 mg/dL 74-106 [facility] Comment on above: Fasting Glucose resu lt from 100 to 125 mg/dL suggests IMPAIRED HOMEOSTASIS per A.D.A. criteria. Neutrophils (Bld) [#/Vol] 2.9 10*3/uL 2.0-7.7 [facility] [place] Neutrophils/100 WBC (Bld) 65.2 % 47-70 [facility] [place] Potassium [Moles/Vol] 4.2 mmol/L 3.5-5.1 [facility] Comment on above: Slight Hemolysis, Re sult may be falsely increased. Protein [Mass/Vol] 7.7 g/dL 6.4-8.2 [facility] Sodium [Moles/Vol] 141 mmol/L 136-145 [facility] WBC (Bld) [#/Vol] 4.4 10*3/uL 4.4-11.0 [facility] Blood erythrocytes count (nu mber/volume)Ordered By: Dr. Pate on 02-04-2022 RBC (Bld) [#/Vol] 3.63 10*6/uL 4.2-5.4 [facility] Blood hemoglobin measurement (mass/volume)Ordered By: Dr. Pate on 02-04-2022 Hemoglobin (Bld) [Mass/Vol] 13.2 g/dL 12.0-15.0 [facility] [place] Blood lymphocytes/100 leukoc ytesOrdered By: Dr. Pate on 02-04-2022 Lymphocytes/100 WBC (Bld) 23.3 % 19-41 [facility] [place] Blood monocytes/100 leukocyt esOrdered By: Dr. Pate on 02-04-2022 Monocytes/100 WBC (Bld) 9.8 % 0-10 [facility] [place] Blood platelet mean volumeOr dered By: Dr. Pate on 02-04-2022 Platelet mean volume (Bld) [Entitic vol] 10.4 fL 6.2-12.0 [facility] [place] Determination of erythrocyte mean corpuscular volume (MCV)Ordered By: Dr. Pate on 02-04-2022 MCV (RBC) [Entitic vol] 111.0 fL 81-99 [facility] [place] Hematocrit Auto (Bld) [Volum e fraction]Ordered By: Dr. Pate on 02-04-2022 Hematocrit (Bld) [Volume fraction] 40.3 % 37-47 [facility] [place] Laboratory - Chemistry and C hemistry - challengeOrdered By: Dr. Pate on 02-04-2022 ALP [Catalytic activity/Vol] 82 U/L 45-117 [facility] [place] ALT [Catalytic activity/Vol] 23 U/L 13-56 [facility] [place] CO2 [Moles/Vol] 28.0 mmol/L 21.0-32.0 [facility] [place] Globulin (S) [Mass/Vol] 4.3 g/dL 2.2-4.2 [facility] [place] Urea nitrogen/Creatinine [Mass ratio] 16.0 mg/mg 10-20 [facility] [place] Laboratory - Hematology and Cell countsOrdered By: Dr. Pate on 02-04-2022 Erythrocyte distribution width (RBC) [Entitic vol] 63.5 fL 35.1-43.9 [facility] [place] Erythrocyte distribution width (RBC) [Ratio] 15.6 % 11.6-14.6 [facility] [place] Immature granulocytes/100 WBC (Bld) 0.700 % 0.0-0.9 [facility] [place] Comment on above: IG% - Immature Granu locytes (promyelocytes, myelocytes and metamyelocytes) > 1% indicates that a LEFT SHIFT is Present. MCH (RBC) [Entitic mass] 36.4 pg 27.0-32.0 [facility] [place] Nucleated RBC/100 WBC (Bld) [Ratio] 0 % 0-5 [facility] [place] MCHC Auto (RBC) [Mass/Vol]Or dered By: Dr. Pate on 02-04-2022 MCHC (RBC) [Mass/Vol] 32.8 g/dL 32-36 [facility] No Panel InformationOrdered By: Dr. Pate on 02-04-2022 Estimated Creatinine Clearance Calc 37.77 ml/min [facility] [place] Estimated GFR (MDRD) Amer 64 mL/min >60 [facility] [place] Comment on above: GFR Calc Estimated GFR (MDRD) Non-Af Amer 53 mL/min >60 [facility] [place] Comment on above: Non- GFR Calc Platelets bldOrdered By: Dr. Pate on 02-04-2022 Platelets (Bld) [#/Vol] 300 10*3/uL 150-450 [facility] [place] Serum or plasma albumin niels urement (mass/volume)Ordered By: Dr. Pate on 02-04-2022 Albumin [Mass/Vol] 3.4 g/dL 3.2-5.0 [facility] Serum or plasma albumin/glob ulin mass ratioOrdered By: Dr. Pate on 02-04-2022 Albumin/Globulin [Mass ratio] 0.8 {ratio} 0.9-2.4 [facility] [place] Serum or plasma calcium niels urement (mass/volume)Ordered By: Dr. Pate on 02-04-2022 Calcium [Mass/Vol] 9.4 mg/dL 8.5-10.1 [facility] [facility] Serum or plasma creatinine m easurement (mass/volume)Ordered By: Dr. Pate on 02-04-2022 Creatinine [Mass/Vol] 1.06 mg/dL 0.55-1.02 [facility] Comment on above: The validity of the calculated GFR & GFRAA in patients over 70 years has not been determined. Clinical correlation is essential. Serum or plasma urea nitroge n measurement (mass/volume)Ordered By: Dr. Pate on 02-04-2022 Urea nitrogen [Mass/Vol] 17 mg/dL 7-18 [facility] Thin prep Papanicolaou smear with manual screeningOrdered By: Dr. Pate on 02-04-2022 Thin prep Papanicolaou smear with manual screening 25 U/L 15-37 [facility] Comment on above: Slight Hemolysis, Re sult may be falsely increased. Thin prep Papanicolaou smear with manual screening 7 5-15 [facility] Absolute lymphocyte countOrd ered By: Dr. Emery on 01-19-2022 Lymphocytes Auto (Unsp spec) [#/Vol] 1.06 10*3/uL 0.83-4.51 [facility] Basophil percentageOrdered B y: Dr. Emery on 01-19-2022 Basophils/100 WBC (Bld) 0.4 % 0-1 [facility] Bilirubin [Mass/Vol] 0.50 mg/dL 0.20-1.00 [facility] Comment on above: For patients on eltr ombopag therapy, use of Dimension [place] TBIL is not recommended. Chloride [Moles/Vol] 106 mmol/L 98-107 [facility] Eosinophils/100 WBC (Bld) 1.1 % 0-5 [facility] Glucose [Mass/Vol] 122 mg/dL 74-106 [facility] Comment on above: Fasting Glucose resu lt from 100 to 125 mg/dL suggests IMPAIRED HOMEOSTASIS per A.D.A. criteria. Neutrophils (Bld) [#/Vol] 4.0 10*3/uL 2.0-7.7 [facility] Neutrophils/100 WBC (Bld) 70.3 % 47-70 [facility] Potassium [Moles/Vol] 3.8 mmol/L 3.5-5.1 [facility] Comment on above: Slight Hemolysis, Re sult may be falsely increased. Protein [Mass/Vol] 7.3 g/dL 6.4-8.2 [facility] Sodium [Moles/Vol] 140 mmol/L 136-145 [facility] WBC (Bld) [#/Vol] 5.6 10*3/uL 4.4-11.0 [facility] Blood erythrocytes count (nu mber/volume)Ordered By: Dr. Emery on 01-19-2022 RBC (Bld) [#/Vol] 3.58 10*6/uL 4.2-5.4 [facility] Blood hemoglobin measurement (mass/volume)Ordered By: Dr. Emery on 01-19-2022 Hemoglobin (Bld) [Mass/Vol] 13.5 g/dL 12.0-15.0 [facility] Blood lymphocytes/100 leukoc ytesOrdered By: Dr. Emery on 01-19-2022 Lymphocytes/100 WBC (Bld) 18.9 % 19-41 [facility] Blood monocytes/100 leukocyt esOrdered By: Dr. Emery on 01-19-2022 Monocytes/100 WBC (Bld) 8.9 % 0-10 [facility] Blood platelet mean volumeOr dered By: Dr. Emery on 01-19-2022 Platelet mean volume (Bld) [Entitic vol] 10.4 fL 6.2-12.0 [facility] Determination of erythrocyte mean corpuscular volume (MCV)Ordered By: Dr. Emery on 01-19-2022 MCV (RBC) [Entitic vol] 110.1 fL 81-99 [facility] Hematocrit Auto (Bld) [Volum e fraction]Ordered By: Dr. Emery on 01-19-2022 Hematocrit (Bld) [Volume fraction] 39.4 % 37-47 [facility] Laboratory - Chemistry and C hemistry - challengeOrdered By: Dr. Emery on 01-19-2022 ALP [Catalytic activity/Vol] 87 U/L 45-117 [facility] ALT [Catalytic activity/Vol] 21 U/L 13-56 [facility] CO2 [Moles/Vol] 27.0 mmol/L 21.0-32.0 [facility] Globulin (S) [Mass/Vol] 4.0 g/dL 2.2-4.2 [facility] Urea nitrogen/Creatinine [Mass ratio] 16.0 mg/mg 10-20 [facility] Laboratory - Hematology and Cell countsOrdered By: Dr. Emery on 01-19-2022 Erythrocyte distribution width (RBC) [Entitic vol] 61.0 fL 35.1-43.9 [facility] Erythrocyte distribution width (RBC) [Ratio] 15.3 % 11.6-14.6 [facility] Immature granulocytes/100 WBC (Bld) 0.400 % 0.0-0.9 [facility] Comment on above: IG% - Immature Granu locytes (promyelocytes, myelocytes and metamyelocytes) > 1% indicates that a LEFT SHIFT is Present. MCH (RBC) [Entitic mass] 37.7 pg 27.0-32.0 [facility] Nucleated RBC/100 WBC (Bld) [Ratio] 0 % 0-5 [facility] MCHC Auto (RBC) [Mass/Vol]Or dered By: Dr. Emery on 01-19-2022 MCHC (RBC) [Mass/Vol] 34.3 g/dL 32-36 [facility] No Panel InformationOrdered By: Dr. Emery on 01-19-2022 Estimated GFR (MDRD) Amer 64 mL/min >60 [facility] Comment on above: GFR Calc Estimated GFR (MDRD) Non-Af Amer 53 mL/min >60 [facility] Comment on above: Non- GFR Calc Thyroid Stimulating Hormone (TSH) 1.77 uIU/mL 0.358-3.74 [facility] Vitamin D 25-Hydroxy 28.7 ng/mL [facility] Comment on above: Vitamin D 25(OH) Sta tus Range Deficiency <20 ng/mL (50nmol/L) Insufficiency 20 - 30 ng/mL (50 - 75 nmol/L) Sufficiency 30 - 100 ng/mL (75 - 250 nmol/L) Toxicity >100 ng/mL (>250 nmol/L) Platelets bldOrdered By: Dr. Emery on 01-19-2022 Platelets (Bld) [#/Vol] 258 10*3/uL 150-450 [facility] Serum or plasma albumin niels urement (mass/volume)Ordered By: Dr. Emery on 01-19-2022 Albumin [Mass/Vol] 3.3 g/dL 3.2-5.0 [facility] Serum or plasma albumin/glob ulin mass ratioOrdered By: Dr. Eemry on 01-19-2022 Albumin/Globulin [Mass ratio] 0.8 {ratio} 0.9-2.4 [facility] Serum or plasma calcium niels urement (mass/volume)Ordered By: Dr. Emery on 01-19-2022 Calcium [Mass/Vol] 9.2 mg/dL 8.5-10.1 [facility] Serum or plasma creatinine m easurement (mass/volume)Ordered By: Dr. Emery on 01-19-2022 Creatinine [Mass/Vol] 1.06 mg/dL 0.55-1.02 [facility] Comment on above: The validity of the calculated GFR & GFRAA in patients over 70 years has not been determined. Clinical correlation is essential. Serum or plasma urea nitroge n measurement (mass/volume)Ordered By: Dr. Emery on 01-19-2022 Urea nitrogen [Mass/Vol] 17 mg/dL 7- [facility] Thin prep Papanicolaou smear with manual screeningOrdered By: Dr. Emery on 01-19-2022 Thin prep Papanicolaou smear with manual screening 24 U/L 15- [facility] Comment on above: Slight Hemolysis, Re sult may be falsely increased. Thin prep Papanicolaou smear with manual screening 7 - [facility] Absolute lymphocyte counton 11-04-2021 Lymphocytes Auto (Unsp spec) [#/Vol] 1.00 10*3/uL 0.83-4.51 [facility] Work Phone: Basophil percentageon 2021 Basophils/100 WBC (Bld) 0.3 % 0-1 [facility] Work Phone: Bilirubin [Mass/Vol] 0.50 mg/dL 0.20-1.00 [facility] Work Phone: Comment on above: For patients on eltr ombopag therapy, use of Dim[place] TBIL is not recommended. Chloride [Moles/Vol] 109 mmol/L 98-107 [facility] Work Phone: Eosinophils/100 WBC (Bld) 1.0 % 0-5 [facility] Work Phone: Glucose [Mass/Vol] 126 mg/dL 74-106 [facility] Work Phone: Comment on above: Fasting Glucose resu lt greater than or equal to 126 mg/dL suggests DIABETES MELLITUS per A.D.A. criteria. Neutrophils (Bld) [#/Vol] 4.5 10*3/uL 2.0-7.7 [facility] Work Phone: Neutrophils/100 WBC (Bld) 75.0 % 47-70 [facility] Work Phone: Potassium [Moles/Vol] 3.7 mmol/L 3.5-5.1 [facility] Work Phone: Comment on above: Slight Hemolysis, Re sult may be falsely increased. Protein [Mass/Vol] 7.5 g/dL 6.4-8.2 [facility] Work Phone: Sodium [Moles/Vol] 141 mmol/L 136-145 [facility] Work Phone: WBC (Bld) [#/Vol] 6.0 10*3/uL 4.4-11.0 [facility] Work Phone: Blood erythrocytes count (nu mber/volume)on 11-04-2021 RBC (Bld) [#/Vol] 3.60 10*6/uL 4.2-5.4 [facility] Work Phone: Blood hemoglobin measurement (mass/volume)on 11-04-2021 Hemoglobin (Bld) [Mass/Vol] 13.3 g/dL 12.0-15.0 [facility] Work Phone: Blood lymphocytes/100 leukoc yteson 11-04-2021 Lymphocytes/100 WBC (Bld) 16.7 % 19-41 [facility] Work Phone: Blood monocytes/100 leukocyt eson 11-04-2021 Monocytes/100 WBC (Bld) 6.5 % 0-10 [facility] Work Phone: Blood platelet mean volumeon 11-04-2021 Platelet mean volume (Bld) [Entitic vol] 10.5 fL 6.2-12.0 [facility] Work Phone: [phone] Determination of erythrocyte mean corpuscular volume (MCV)on 11-04-2021 MCV (RBC) [Entitic vol] 111.9 fL 81-99 [facility] Work Phone: Hematocrit Auto (Bld) [Volum e fraction]on 11-04-2021 Hematocrit (Bld) [Volume fraction] 40.3 % 37-47 [facility] Work Phone: [phone] Laboratory - Chemistry and C hemistry - challengeon 11-04-2021 ALP [Catalytic activity/Vol] 82 U/L 45-117 [facility] Work Phone: ALT [Catalytic activity/Vol] 22 U/L 13-56 [facility] Work Phone: CO2 [Moles/Vol] 26.0 mmol/L 21.0-32.0 [facility] Work Phone: [phone] Globulin (S) [Mass/Vol] 4.2 g/dL 2.2-4.2 [facility] Work Phone: [phone] Urea nitrogen/Creatinine [Mass ratio] 14.0 mg/mg 10-20 [facility] Work Phone: Laboratory - Hematology and Cell countson 11-04-2021 Erythrocyte distribution width (RBC) [Entitic vol] 55.7 fL 35.1-43.9 [facility] Work Phone: [phone] Erythrocyte distribution width (RBC) [Ratio] 13.7 % 11.6-14.6 [facility] Work Phone: [phone] Immature granulocytes/100 WBC (Bld) 0.500 % 0.0-0.9 [facility] Work Phone: [phone] Comment on above: IG% - Immature Granu locytes (promyelocytes, myelocytes and metamyelocytes) > 1% indicates that a LEFT SHIFT is Present. MCH (RBC) [Entitic mass] 36.9 pg 27.0-32.0 [facility] Work Phone: [phone] Nucleated RBC/100 WBC (Bld) [Ratio] 0 % 0-5 [facility] Work Phone: [phone] MCHC Auto (RBC) [Mass/Vol]on 11-04-2021 MCHC (RBC) [Mass/Vol] 33.0 g/dL 32-36 [facility] Work Phone: No Panel Informationon 11-04 Estimated Creatinine Clearance Calc 35.12 ml/min [facility] Work Phone: Estimated GFR (MDRD) Amer 59 mL/min >60 [facility] Work Phone: Comment on above: GFR Calc Estimated GFR (MDRD) Non-Af Amer 49 mL/min >60 [facility] Work Phone: Comment on above: Non- GFR Calc Platelets bldon 11-04-2021 Platelets (Bld) [#/Vol] 290 10*3/uL 150-450 [facility] Work Phone: Serum or plasma albumin niels urement (mass/volume)on 11-04-2021 Albumin [Mass/Vol] 3.3 g/dL 3.2-5.0 [facility] Work Phone: Serum or plasma albumin/glob ulin mass ratioon 11-04-2021 Albumin/Globulin [Mass ratio] 0.8 {ratio} 0.9-2.4 [facility] Work Phone: Serum or plasma calcium niels urement (mass/volume)on 11-04-2021 Calcium [Mass/Vol] 9.3 mg/dL 8.5-10.1 [facility] Work Phone: Serum or plasma creatinine m easurement (mass/volume)on 11-04-2021 Creatinine [Mass/Vol] 1.14 mg/dL 0.55-1.02 [facility] Work Phone: Comment on above: The validity of the calculated GFR & GFRAA in patients over 70 years has not been determined. Clinical correlation is essential. Serum or plasma urea nitroge n measurement (mass/volume)on 11-04-2021 Urea nitrogen [Mass/Vol] 16 mg/dL 7-18 [facility] Work Phone: Thin prep Papanicolaou smear with manual screeningon 11-04-2021 Thin prep Papanicolaou smear with manual screening 23 U/L 15-37 [facility] Work Phone: Comment on above: Slight Hemolysis, Re sult may be falsely increased. Thin prep Papanicolaou smear with manual screening 6 5-15 [facility] Work Phone: Blood platelet adequacy dete ction by light microscopyon 11-24-2018 Platelets LM Ql (Bld) ADEQUATE ADEQ [facility] Blood platelet morphology de termination (nominal result)on 11-24-2018 Platelet morphology finding Nom (Bld) LARGE [facility] Laboratory - Hematology and Cell countson 11-24-2018 Anisocytosis Ql (Bld) 2+ [facility] Macrocytes detectionon 11-24 Macrocytes Ql (Bld) 1+ [facility] Target cell detectionon Target cells LM Ql (Bld) RARE [facility] Hypochromatic red blood cell detectionon 10-27-2018 Hypochromia Ql (Bld) 1+ [facility] No Panel Informationon 10-27 Differential Comment SCANNED [facility] Comment on above: DIMORPHIC RBC POPULA TION NOTED Review by pathologiston Pathologist review Jack (Unsp spec) [Interp] Reviewed [facility] Comment on above: Previous reported re sult: Jahaira corral Edited by: URIEL on 10/28/18:1304 AMENDED REPORT 10/28/18 1304 PATH REV previously reported as: Jahaira corral Absolute reticulocyte counto n 10-13-2018 Reticulocytes (Bld) [#/Vol] 0.00 10*3/uL 0-5 [facility] Laboratory - Hematology and Cell countson 09-29-2018 Erythrocyte distribution width (RBC) [Ratio] 24.6 % High 11.6-14.6 [facility] No Panel Informationon 09-29 Red Cell Distribution Width Diff 73.7 fl High 35.1-43.9 [facility] 24.6 % High 11.6-14.6 [facility] 73.7 fl High 35.1-43.9 [facility] Total cell counton 9 Cells counted [employer] (Bld/Tiss) [#] Not Reportable [facility] RBC morphologyon 09-21-2018 RBC morphology finding Nom (Bld) N CHROM NORMAL NORM C&C [facility] [employer] mix RAST testo n 06-27-2018 LDH [Catalytic activity/Vol] 283 U/L High 84-246 [facility] Comment on above: Slight Hemolysis, Re sult may be falsely increased. Iron measurement (mass/mass) on 06-27-2018 Iron (Unsp spec) [Mass/Mass] 54 ug/dL 50-170 [facility] Comment on above: Slight Hemolysis, Re sult may be falsely increased. JAK2 V617F mutation detectio non 06-27-2018 JAK2 gene p.[id number] [facility] Ql (Bld/Tiss) Comment High . [facility] Comment on above: Result: POSITIVE for the detection of the V617F mutation.Interpretation: The assay detected the presence of a G toT nucleotide change encoding the V617F mutation withinJAK2. Interpretation of this result should be made in thecontext of other clinical, morphologic, and cytogeneticfindings. No Panel Informationon 06-27 JAK2 Mutation Comment . [facility] Comment on above: JAK2 is a cytoplasmi c tyrosine kinase with a ferrell role insignal transduction from multiple hematopoietic growthfactor receptors. A point mutation within exon 14 of theJAK2 gene ([id number]) encoding a valine to phenylalaninesubstitution at position [...] specific to JAK2 wild type (WT) and GEO8eioiew V617F. The [employer] Absolute Quantitation softwarewill compare the patient specimen valuse to the standardcurves and generate percent values for wild type andmutant type. In vitro studies have indicated that thisassay has an analytical sensitivity of 1%.References:Matthew EJ, Jean LM, Zachary PJ, et al. Acquiredmutation of the tyrosine kinase JAK2 in humanmyeloproliferative disorders. Lancet. 2005 Jun 07;365(0439):5496-7967. Travis Santiago, Guido Haynes, Mary Rosas JP. Aunique clonal JAK2 mutation leading to constitutivesignaling causes polycythaemia vera. Nature. 2005 Jul 17;970(9312):4490-8744.Nicolas R, Bolivar F, Jolynn , et al. A kiub-iq-zqthqcje mutation of JAK2 in myeloproliferative disorders.N Engl J Med. 2005 Jul 17; 352(71):9289-4130. Miscellaneous Test See comment [facility] Comment on above: TEST RESULT UNITS [...] was developed and its performancecharacteristics determined by [employer] ([employer]). It has not been cleared orapproved by the U.S. Food and Drug Administration. The DNAprobe vendor for this study was [employer] ([employer]).Specimen Type Comment: BLOODDirector Review: Comment: Travis Chavez, PhD, [facility] .Specimen Type Comment: BLOODCells Counted [...] changes occur.Director Review: Comment:AMIE FERREIRA, PHD, [facility] TESTING PERFORMED AT [facility]. ORIGINAL REPORT ON FILE IN LAB CONTAINS ADDITIONAL TEST SITE INFORMATION. Total Iron Binding Capacity 289 ug/dL 250-450 [facility] 289 ug/dL 250-450 [facility] See comment [facility] Comment . [facility] Serum or plasma erythropoiet in (EPO) measurement (units/volume)on 06-27-2018 Erythropoietin (EPO) Qn 4.2 mIU/mL 2.6-18.5 [facility] Comment on above: Jadon [employer] DxI 800 Immunoassay SystemValues obtained with different assay methods or kits cannotbe used interchangeably. Results cannot be interpreted asabsolute evidence of the presence or absence of malignantdisease.Performed at: [facility] [id number] [place], [place] [id number] Director: Mj Coronado MD, Phone: [phone] at: [facility] [id number] [place], [place] [id number] Director: Mj Coronado MD, Phone: [phone] at: CB - [facility] [id number] [place], [place] [id number] Director: Ruddy Parks PhD, Phone: [phone] Serum or plasma ferritin hayden surement (mass/volume)on 06-27-2018 Ferritin [Mass/Vol] 561 ng/mL High 8-252 [facility] Serum or plasma iron saturat ion measurement (mass fraction)on 06-27-2018 Iron saturation [Mass fraction] 18.7 % 15.0-55.0 [facility] Serum or plasma uric acid me asurement (mass/volume)on 06-27-2018 Urate [Mass/Vol] 4.2 mg/dL 2.6-6.0 [facility] Comment on above: The drugs N-Acetylcy steine and Metamizole may falsely depress this assay. Thin prep Papanicolaou smear with manual screeningon 06-27-2018 Thin prep Papanicolaou smear with manual screening 283 U/L 84-246 [facility] Comment on above: Slight Hemolysis, Re sult may be falsely increased. Vital Signs Date Time Vital Sign Value Performing Clinician Faci lity 01-05-2025 09:23-0400 Body height 165.[address] Dago Emery MD Work Phone: [facility] 11-28-2024 08:58-0400 Diastolic blood pressure 56 mm[Hg] Dr. Dago Emery MD Work Phone: [facility] 11-28-2024 08:58-0400 Systolic blood pressure 119 mm[Hg] Dr. Dago Emery MD Work Phone: [facility] 11-28-2024 08:04-0400 Body temperature 98.1 [degF] Dr. Dago Emery MD Work Phone: [facility] 11-28-2024 08:04-0400 Heart rate 69 /min Dr. Dago Emery MD Work Phone: [facility] 11-28-2024 08:04-0400 Respiratory rate 16 /min Dr. Dago Emery MD Work Phone: [facility] 11-28-2024 08:04-0400 SaO2% (BldA) [Mass fraction] 93 % Dr. Dago Emery MD Work Phone: [phone])281-354657 [place] [address] 11-22-2024 14:50-0400 Body height 165.[address] Dago Emery MD Work Phone: [phone] [place] [address] 11-22-2024 14:50-0400 Body weight 85.[address] Dago Emery MD Work Phone: [phone])505-187357 [place] [address] 11-21-2024 14:00-0400 Body mass index (BMI) [Ratio] 31.4 kg/m2 Dr. Dago Emery MD Work Phone: [phone])866-950157 [place] [address] 11-01-2024 16:35-0400 Diastolic blood pressure 71 mm[Hg] Dr. Dago Emery MD Work Phone: [phone] [place] [address] 11-01-2024 16:35-0400 Heart rate 64 /min Dr. Dago Emery MD Work Phone: [phone])427-803957 [place] [address] 11-01-2024 16:35-0400 Respiratory rate 16 /min Dr. Dago Emery MD Work Phone: [phone])768-428457 [place] [address] 11-01-2024 16:35-0400 SaO2% (BldA) [Mass fraction] 96 % Dr. Dago Emery MD Work Phone: 8(374)150-484557 [place] [address] 11-01-2024 16:35-0400 Systolic blood pressure 163 mm[Hg] Dr. Dago Emery MD Work Phone: 8(879)508-565957 [place] [address] 11-01-2024 16:20-0400 Body temperature 98.5 [degF] Dr. Dago Emery MD Work Phone: [phone])[phone] [place] [address] 11-01-2024 15:07-0400 Body height 165.[address] Dago Emery MD Work Phone: 7(709)829-243557 [place] [address] 11-01-2024 15:07-0400 Body mass index (BMI) [Ratio] 32.5 kg/m2 Dr. Dago Emery MD Work Phone: 4(385)988-485757 [place] [address] 11-01-2024 15:07-0400 Body weight 88.[address] Dago Emery MD Work Phone: [phone])203-906115 [place] [address] 11-01-2024 14:26-0400 Body mass index (BMI) [Ratio] 32.8 kg/m2 Dr. Dago Emery MD Work Phone: 1([phone])221-163815 [place] [address] 11-01-2024 14:26-0400 Body temperature 97.7 [degF] Dr. Dago Emery MD Work Phone: 5([phone])455-473857 [place] [address] 11-01-2024 14:26-0400 Body weight 89.[address] Dago Emery MD Work Phone: 1(036)862-953857 [place] [address] 11-01-2024 14:26-0400 Diastolic blood pressure 68 mm[Hg] Dr. Dago Emery MD Work Phone: 4(147)216-579257 [place] [address] 11-01-2024 14:26-0400 Heart rate 67 /min Dr. Dago Emery MD Work Phone: 0(186)018-607357 [place] [address] 11-01-2024 14:26-0400 Respiratory rate 19 /min Dr. Dago Emery MD Work Phone: 0(039)[phone] [place] [address] 11-01-2024 14:26-0400 SaO2% (BldA) [Mass fraction] 96 % Dr. Dago Emery MD Work Phone: 7(361)642-319057 [place] [address] 11-01-2024 14:26-0400 Systolic blood pressure 153 mm[Hg] Dr. Dago Emery MD Work Phone: [phone])177-439515 [place] [address] 10-21-2024 13:13-0400 Body temperature 98.3 [degF] Dr. Dago Emery MD Work Phone: 8(901)198-055415 [place] [address] 10-21-2024 13:13-0400 Diastolic blood pressure 67 mm[Hg] Dr. Dago Emery MD Work Phone: 3(066)863-798315 [place] [address] 10-21-2024 13:13-0400 Heart rate 62 /min Dr. Dago Emery MD Work Phone: 1(687)347-948615 [place] [address] 10-21-2024 13:13-0400 Respiratory rate 18 /min Dr. Dago Emery MD Work Phone: [phone])[phone] [address] 10-21-2024 13:13-0400 SaO2% (BldA) [Mass fraction] 95 % Dr. Dago Emery MD Work Phone: [phone])047-973257 [place] [address] 10-21-2024 13:13-0400 Systolic blood pressure 129 mm[Hg] Dr. Dago Emery MD Work Phone: 5(294)120-734557 [place] [address] 10-16-2024 22:13-0400 Inhaled oxygen flow rate 2 L/min Dr. Dago Emery MD Work Phone: 9(406)673-981457 [place] [address] 10-16-2024 20:13-0400 Body height 165.[address] Dago Emery MD Work Phone: 3(667)456-088357 [place] [address] 10-16-2024 20:13-0400 Body mass index (BMI) [Ratio] 31.1 kg/m2 Dr. Dago Emery MD Work Phone: 8(963)471-128757 [place] [address] 10-16-2024 20:13-0400 Body weight [address] Dago Emery MD Work Phone: 8(589)194-031457 [place] [address] 10-11-2024 15:05-0400 Body height 165.[address] Dago Emery MD Work Phone: 9(674)343-111257 [place] [address] 10-11-2024 15:05-0400 Body temperature 98.2 [degF] Dr. Dago Emery MD Work Phone: 2(500)485-692857 [place] [address] 10-11-2024 15:05-0400 Diastolic blood pressure 73 mm[Hg] Dr. Dago Emery MD Work Phone: 7(236)740-742057 [place] [address] 10-11-2024 15:05-0400 Heart rate 52 /min Dr. Dago Emery MD Work Phone: 9(477)547-823257 [place] [address] 10-11-2024 15:05-0400 Respiratory rate 16 /min Dr. Dago Emery MD Work Phone: 1(751)239-360457 [place] [address] 10-11-2024 15:05-0400 SaO2% (BldA) [Mass fraction] 98 % Dr. Dago Emery MD Work Phone: 0(395)369-898915 [place] [address] 10-11-2024 15:05-0400 Systolic blood pressure 169 mm[Hg] Dr. Dago Emery MD Work Phone: 4(016)206-355857 [place] [address] 09-20-2024 14:30-0400 Body height 165.[address] Dago Emery MD Work Phone: 5(069)499-542557 [place] [address] 09-20-2024 14:30-0400 Body mass index (BMI) [Ratio] 32.4 kg/m2 Dr. Dago Emery MD Work Phone: 4(898)279-150157 [place] [address] 09-20-2024 14:30-0400 Body weight 88.[address] Dago Emery MD Work Phone: 6(340)343-631657 [place] [address] 09-20-2024 14:30-0400 Diastolic blood pressure 73 mm[Hg] Dr. Dago Emery MD Work Phone: 2(000)319-963657 [place] [address] 09-20-2024 14:30-0400 Heart rate 56 /min Dr. Dago Emery MD Work Phone: 7(760)266-495257 [place] [address] 09-20-2024 14:30-0400 Respiratory rate 18 /min Dr. Dago Emery MD Work Phone: 9(137)543-672057 [place] [address] 09-20-2024 14:30-0400 SaO2% (BldA) [Mass fraction] 95 % Dr. Dago Emery MD Work Phone: 1(198)202-406257 [place] [address] 09-20-2024 14:30-0400 Systolic blood pressure 124 mm[Hg] Dr. Dago Emery MD Work Phone: 3(500)723-252057 [place] [address] 07-10-2024 13:45-0400 Body height 165.[address] Dago Emery MD Work Phone: 8(134)482-701057 [place] [address] 07-10-2024 13:45-0400 Body temperature 97.8 [degF] Dr. Dago Emery MD Work Phone: 5(875)668-440557 [place] [address] 07-10-2024 13:45-0400 Diastolic blood pressure 66 mm[Hg] Dr. Dago Emery MD Work Phone: [facility] 07-10-2024 13:45-0400 Heart rate 46 /min Dr. Dago Emery MD Work Phone: [facility] 07-10-2024 13:45-0400 Respiratory rate 16 /min Dr. Dago Emery MD Work Phone: [facility] 07-10-2024 13:45-0400 SaO2% (BldA) [Mass fraction] 98 % Dr. Dago Emery MD Work Phone: [facility] 07-10-2024 13:45-0400 Systolic blood pressure 104 mm[Hg] Dr. Dago Emery MD Work Phone: 9(592)021-539615 [place] [address] 02-22-2024 14:10-0500 Body weight 88.[address] Dago Emery MD Work Phone: 6(813)178-159781 [address] 11-04-2022 14:40-0400 Body height 165.[address] Dago Emery Work Phone: 5(172)457-987915 [place] [address] 11-04-2022 14:40-0400 Body mass index (BMI) [Ratio] 34.2 kg/m2 Dr. Dago Emery Work Phone: 1(748)227-065215 [place] [address] 11-04-2022 14:40-0400 Body temperature 98 [degF] Dr. Dago Emery Work Phone: 3(903)855-231515 [place] [address] 11-04-2022 14:40-0400 Body weight 93.[address] Dago Emery Work Phone: [facility] 11-04-2022 14:40-0400 Diastolic blood pressure 74 mm[Hg] Dr. Dago Emery Work Phone: 6(154)915-528215 [place] [address] 11-04-2022 14:40-0400 Heart rate 51 /min Dr. Dago Emery Work Phone: [facility] 11-04-2022 14:40-0400 Respiratory rate 16 /min Dr. Dago Emery Work Phone: [facility] 11-04-2022 14:40-0400 SaO2% (BldA) [Mass fraction] 98 % Dr. Dago Emery Work Phone: 3(418)937-519815 [place] [address] 11-04-2022 14:40-0400 Systolic blood pressure 140 mm[Hg] Dr. Dago Emery Work Phone: 7(255)746-581015 [place] [address] 10-14-2022 12:50-0400 Body temperature 97.6 [degF] Dr. Dago Emery Work Phone: 0(090)179-340157 [place] [address] 10-14-2022 12:50-0400 Diastolic blood pressure 47 mm[Hg] Dr. Dago Emery Work Phone: 5(832)256-493457 [place] [address] 10-14-2022 12:50-0400 Heart rate 70 /min Dr. Dago Emery Work Phone: 5(207)629-966157 [place] [address] 10-14-2022 12:50-0400 Respiratory rate 18 /min Dr. Dago Emery Work Phone: 0(018)736-021657 [place] [address] 10-14-2022 12:50-0400 SaO2% (BldA) [Mass fraction] 94 % Dr. Dago Emery Work Phone: 0(310)317-471057 [place] [address] 10-14-2022 12:50-0400 Systolic blood pressure 141 mm[Hg] Dr. Dago Emery Work Phone: 0(267)667-555357 [place] [address] 10-13-2022 09:00-0400 Body mass index (BMI) [Ratio] 34.4 kg/m2 Dr. Dago Emery Work Phone: 9(394)109-602357 [place] [address] 10-13-2022 09:00-0400 Body weight 93.[address] Dago Emery Work Phone: 4(422)429-743857 [place] [address] 08-05-2022 13:49-0400 Body height 165.[address] Dago Emery Work Phone: 6(330)301-717415 [place] [address] 08-05-2022 13:49-0400 Body mass index (BMI) [Ratio] 34.2 kg/m2 Dr. Dago Emery Work Phone: 0(184)971-778515 [place] [address] 08-05-2022 13:49-0400 Body temperature 98.3 [degF] Dr. Dago Emery Work Phone: 7(312)693-850615 [place] [address] 08-05-2022 13:49-0400 Body weight 93.[address] Dago Emery Work Phone: [facility] 08-05-2022 13:49-0400 Diastolic blood pressure 83 mm[Hg] Dr. Dago Emery Work Phone: 7(350)436-818715 [place] [address] 08-05-2022 13:49-0400 Heart rate 45 /min Dr. Dago Emery Work Phone: 7(520)109-608015 [place] [address] 08-05-2022 13:49-0400 Respiratory rate 18 /min Dr. Dago Emery Work Phone: 8(894)648-854815 [place] [address] 08-05-2022 13:49-0400 SaO2% (BldA) [Mass fraction] 99 % Dr. Dago Emery Work Phone: 8(468)339-504515 [place] [address] 08-05-2022 13:49-0400 Systolic blood pressure 137 mm[Hg] Dr. Dago Emery Work Phone: 2(833)999-823081 [address] 05-06-2022 14:19-0500 Body height 165.[address] Dago Emery Work Phone: 7(157)588-213415 [place] [address] 05-06-2022 14:19-0500 Body mass index (BMI) [Ratio] 35.5 kg/m2 Dr. Dago Emery Work Phone: 7(412)952-906415 [place] [address] 05-06-2022 14:19-0500 Body temperature 98.3 [degF] Dr. Dago Emery Work Phone: 5(181)858-728615 [place] [address] 05-06-2022 14:19-0500 Body weight 96.[address] Dago Emery Work Phone: 2(684)848-714815 [place] [address] 05-06-2022 14:19-0500 Diastolic blood pressure 72 mm[Hg] Dr. Dago Emery Work Phone: 4(934)422-812215 [place] [address] 05-06-2022 14:19-0500 Heart rate 46 /min Dr. Dago Emery Work Phone: [facility] 05-06-2022 14:19-0500 Respiratory rate 18 /min Dr. Dago Emery Work Phone: 4(983)773-690715 [place] [address] 05-06-2022 14:19-0500 SaO2% (BldA) [Mass fraction] 98 % Dr. Dago Emery Work Phone: 3(759)102-549815 [place] [address] 05-06-2022 14:19-0500 Systolic blood pressure 121 mm[Hg] Dr. Dago Emery Work Phone: 3(924)416-281215 [place] [address] 04-12-2022 08:38-0500 Diastolic blood pressure 94 mm[Hg] Dr. Dago Emery Work Phone: 2(506)267-497157 [place] [address] 04-12-2022 08:38-0500 Heart rate 60 /min Dr. Dago Emery Work Phone: 5(255)172-067457 [place] [address] 04-12-2022 08:38-0500 Respiratory rate 16 /min Dr. Dago Emery Work Phone: 2(572)586-867557 [place] [address] 04-12-2022 08:38-0500 SaO2% (BldA) [Mass fraction] 96 % Dr. Dago Emery Work Phone: 7(216)170-760357 [place] [address] 04-12-2022 08:38-0500 Systolic blood pressure 178 mm[Hg] Dr. Dago Emery Work Phone: 1(493)880-077457 [place] [address] 04-12-2022 08:33-0500 Body height 165.[address] Dago Emery Work Phone: 9(896)200-067557 [place] [address] 04-12-2022 08:33-0500 Body mass index (BMI) [Ratio] 36.3 kg/m2 Dr. Dago Emery Work Phone: 7(051)125-479157 [place] [address] 04-12-2022 08:33-0500 Body temperature 98.5 [degF] Dr. Dago Emery Work Phone: 2(806)303-107257 [place] [address] 04-12-2022 08:33-0500 Body weight 99.[address] Dago Emery Work Phone: 4(488)998-438057 [place] [address] 02-04-2022 14:20-0500 Body mass index (BMI) [Ratio] 34.4 kg/m2 Dr. Dago Emery Work Phone: [facility] 02-04-2022 14:20-0500 Body temperature 97.8 [degF] Dr. Dago Emery Work Phone: [facility] 02-04-2022 14:20-0500 Body weight 93.[address] Dago Emery Work Phone: [facility] 02-04-2022 14:20-0500 Diastolic blood pressure 79 mm[Hg] Dr. Dago Emery Work Phone: [facility] 02-04-2022 14:20-0500 Heart rate 51 /min Dr. Dago Emery Work Phone: [facility] 02-04-2022 14:20-0500 Respiratory rate 16 /min Dr. Dago Emery Work Phone: [facility] 02-04-2022 14:20-0500 SaO2% (BldA) [Mass fraction] 97 % Dr. Dago Emery Work Phone: [facility] 02-04-2022 14:20-0500 Systolic blood pressure 132 mm[Hg] Dr. Dago Emery Work Phone: [facility] 11-04-2021 13:59-0400 Body height 165.[address] Dago Emery Work Phone: [facility] Work Phone: 11-04-2021 13:59-0400 Body mass index (BMI) [Ratio] 34.4 kg/m2 Dr. Dago Emery Work Phone: [facility] Work Phone: 11-04-2021 13:59-0400 Body temperature 97.4 [degF] Dr. Dago Emery Work Phone: [facility] Work Phone: 11-04-2021 13:59-0400 Body weight [address] Dago Emery Work Phone: [facility] Work Phone: 11-04-2021 13:59-0400 Diastolic blood pressure 80 mm[Hg] Dr. Dago Emery Work Phone: [facility] Work Phone: 11-04-2021 13:59-0400 Heart rate 51 /min Dr. Dago Emery Work Phone: [facility] Work Phone: 11-04-2021 13:59-0400 Respiratory rate 16 /min Dr. Dago Emery Work Phone: [facility] Work Phone: 11-04-2021 13:59-0400 SaO2% (BldA) [Mass fraction] 97 % Dr. Dago Emery Work Phone: [facility] Work Phone: 11-04-2021 13:59-0400 Systolic blood pressure 130 mm[Hg] Dr. Dago Emery Work Phone: [facility] Work Phone: 04-25-2020 14:46-0500 Body mass index (BMI) [Ratio] 37.8 kg/m2 Dr. Dago Emery Work Phone: [facility] 04-25-2020 14:46-0500 Body temperature 98 [degF] Dr. Dago Emery Work Phone: [facility] 04-25-2020 14:46-0500 Body weight 99.[address] Dago Emery Work Phone: [facility] 04-25-2020 14:46-0500 Diastolic blood pressure 87 mm[Hg] Dr. Dago Emery Work Phone: [facility] 04-25-2020 14:46-0500 Heart rate 54 /min Dr. Dago Emery Work Phone: [facility] 04-25-2020 14:46-0500 Respiratory rate 17 /min Dr. Dago Emery Work Phone: [facility] 04-25-2020 14:46-0500 SaO2% (BldA) [Mass fraction] 97 % Dr. Dago Emery Work Phone: [facility] 04-25-2020 14:46-0500 Systolic blood pressure 155 mm[Hg] Dr. Dago Emery Work Phone: [facility] Encounters Encounter Date Encounter Type Care Provider Facility Start: 01-31-2025 ambulatory [facility] Facility:[facility] Start: 01-24-2025 End: 01-24-2025 [facility] Start: 01-17-2025 End: 01-17-2025 ambulatory [facility] Facility[place] Start: 01-10-2025 ambulatory Efewongbe Oleghe OLS Fa cility:[facility] Start: 01-03-2025 ambulatory Efewongbe Oleghe OLS Fa cility:[facility] Start: 01-03-2025 Irvin Reeves Start: 12-28-2024 ambulatory Efewongbe Oleghe OLS Fa cility:[facility] Start: 12-28-2024 Irvin Reeves Start: 12-20-2024 ambulatory Efewongbe Oleghe OLS Fa cility:[facility] Start: 12-20-2024 Irvin Reeves Start: 12-13-2024 End: 12-13-[address] Dago Emery MD Work Phone: -[facility] Start: 12-13-2024 End: 12-13-2024 Fouzia HAINES -[facility] Work Phone: Start: 12-13-2024 ambulatory Efewongbe Oleghe OLS Fa cility:[facility] Start: 12-13-2024 Irvin Reeves Start: 12-08-2024 ambulatory Efewongbe Oleghe OLS Fa cility:[facility] Start: 12-08-2024 Irvin Reeves Start: 12-06-2024 ambulatory Irvin SARABIA Grisel cility:[facility] Start: 12-06-2024 Irvin Reeves Start: 12-05-2024 End: 12-05-[address] Dago Emery MD Work Phone: [facility] Start: 12-05-2024 End: 12-05-2024 [facility] Work Phone: Start: 11-30-2024 End: 11-30-[address] Dago Emery MD Work Phone: [facility] Start: 11-30-2024 End: 11-30-2024 [facility] Work Phone: Start: 11-29-2024 Irvin Reeves Start: 11-28-2024 End: 11-29-[address] Dago Emery MD Work Phone: [facility] Start: 11-28-2024 End: 11-28-2024 Dr. Irvin Mckenna MD [facility] Work Phone: Start: 11-01-2024 Non-patient / Non-visit Pio Ortiz nd DO -[facility] Start: 11-01-2024 End: 11-01-2024 Admission to same day surgery center Pio Friend DO -Endoscopy Work Phone: Start: 11-01-2024 End: 11-01-2024 Pio Friend DO -Endoscopy Work Phone: Start: 11-01-2024 End: 11-01-[address] Dago Emery MD Work Phone: -Endoscopy Start: 10-31-2024 Non-patient / Non-visit Pio Ortiz nd DO -[facility] Start: 10-31-2024 Pio Webb DO -[facility] Start: 10-21-2024 ambulatory Pio Webb [place] Start: 10-21-2024 End: 11-28-2024 Evaluation and management of inpatient Dr. Dago Emery MD -Transitional Care Unit Start: 10-21-2024 End: 11-28-2024 Dr. Dago Emery MD -Transitional Care Unit Start: 10-20-2024 Non-patient / Non-visit Dr. Sofia giang MD -[facility] Work Phone: Start: 10-20-2024 Dr. Sofia Carvajal MD [facility] Work Phone: Start: 10-18-2024 ambulatory Saulo Bullock [facility] Start: 10-18-2024 End: 10-21-2024 Evaluation and management of inpatient Dr. Geo Rodriguez MD -Medical Surgical 3 Work Phone: Start: 10-18-2024 End: 10-21-2024 Dr. Geo Rodriguez MD -Medical Surgical 3 Work Phone: Start: 10-18-2024 Non-patient / Non-visit Dr. Joselin Valente MD [facility] Work Phone: Start: 10-18-2024 Dr. See Valente MD [facility] Work Phone: Start: 10-17-2024 Non-patient / Non-visit Dr. Joselin Valente MD [facility] Work Phone: Start: 10-17-2024 Dr. See Valente MD [facility] Work Phone: Start: 10-16-2024 Non-patient / Non-visit Dr. Foley [facility] Work Phone: Start: 10-16-2024 Dr. Saulo Bullock [facility] Work Phone: Start: 10-16-2024 ambulatory Saulo Reyes ility:[facility] Start: 10-11-[address] Cira Pate MD -[facility] Start: 10-11-2024 End: 10-11-2024 Patient encounter procedure Carolyn Peg [facility] Work Phone: Start: 10-11-2024 End: 10-11-2024 Carolyn Ruvalcaba [facility] Work Phone: Start: 10-11-2024 End: 10-11-[address] Dago Emery MD Work Phone: [facility] Start: 09-20-2024 End: 09-20-[address] Omero Armas MD -[facility] Work Phone: Start: 09-20-2024 End: 09-20-[address] Omeor Armas MD [facility] Start: 09-20-2024 End: 09-20-[address] Omero Armas MD [facility] Start: 09-20-2024 End: 09-20-2024 Dr. Omero Armas MD -[facility] Work Phone: Start: 09-20-2024 End: 09-20-[address] Dago Emery MD Work Phone: [facility] Start: 08-08-2024 [facility] Start: 08-01-2024 End: 08-01-2024 Non-patient / Non-visit Dr. Omero Armas MD -[facility] Work Phone: Start: 08-01-2024 End: 08-01-[address] Dago Emery MD Work Phone: [facility] Work Phone: Start: 08-01-2024 End: 08-01-[address] Dago Emery MD -Pulmonary Services/Neurology Work Phone: Start: 07-31-2024 End: 08-01-[address] Dago Emery MD Work Phone: [facility] Work Phone: Start: 07-31-2024 End: 07-31-[address] Dago Emery MD -[facility] Start: 07-31-2024 End: 07-31-2024 ambulatory [facility] Facility:[facility] Start: 07-10-[address] Cira Pate MD -[facility] Start: 07-10-2024 End: 07-10-2024 Patient encounter procedure Carolyn Ruvalcaba NP-C -[facility] Work Phone: Start: 07-10-2024 End: 07-10-2024 ambulatory [facility] Start: 02-22-2024 End: 02-22-2024 ambulatory [facility] Facility:[facility] Start: 01-25-2023 End: 01-25-[address] Dago Emery Work Phone: [facility] Work Phone: Start: 01-25-2023 End: 01-25-[address] Dago Emery Work Phone: [facility]-Laboratory, Phy Office 3rd Flr Start: 11-04-[address] Dago hays Work Phone: [facility] Start: 11-04-2022 End: 11-04-[address] Dago Emery Work Phone: [facility] Work Phone: Start: 09-25-2022 End: 10-14-2022 Evaluation and management of inpatient Dr. Dago Emery Work Phone: [facility]-Transitional Care Unit Start: 09-04-2022 End: 09-04-[address] Dago Emery Work Phone: [facility] Work Phone: Start: 09-04-2022 End: 09-04-[address] Dago Emery Work Phone: [facility] Start: 08-05-2022 End: 08-05-[address] Dago Emery Work Phone: [facility] Start: 08-05-[address] Dago hays Work Phone: [facility] Start: 07-20-2022 End: 07-20-[address] Dago Emery Work Phone: [facility] Work Phone: Start: 07-20-2022 End: 07-20-[address] Dago mEery Work Phone: [facility] Office [address] [place] [address] Start: 05-06-[address] Dago hays Work Phone: [facility] Start: 05-06-2022 End: 05-06-[address] Dago Emery Work Phone: [facility] Start: 04-12-2022 End: 04-12-2022 Emergency department patient visit Dr. Dago Emery Work Phone: [facility]-Emergency Department Start: 02-04-[address] Dago hays Work Phone: [facility] Start: 02-04-2022 End: 02-04-[address] Dago Emery Work Phone: [facility] Start: 01-19-2022 End: 01-19-[address] Dago Emery Work Phone: [facility] Work Phone: Start: 01-19-2022 End: 01-19-[address] Dago Emery Work Phone: [facility]-Laboratory, Phy Office 3rd Flr Start: 11-04-[address] Dago hays Work Phone: [facility] Start: 11-04-2021 End: 11-04-[address] Dago Emery Work Phone: [facility] Procedures Date Procedure Procedure [...] Reeves Start: 11-28-2024 Development of care plan [facility] Start: 11-28-2024 Patient discharge [facility] Start: 11-21-2024 [facility] Start: 11-17-2024 Developing a treatment plan [facility] Start: 11-14-2024 Speech therapy management [facility] Start: 11-03-2024 Elevation of affected extremity [facility] Start: 11-01-2024 Endoscopy upper small intestine w/biopsy [facility] Start: 11-01-2024 Patient discharge [facility] Start: 10-31-2024 Speech therapy assessment [facility] Start: 10-31-2024 Referral to gastroenterology service [facility] Start: 10-30-2024 Verification routine [facility] Start: 10-25-2024 [facility] Start: 10-22-2024 Developing a treatment plan [facility] Start: 10-21-2024 Chemotherapy care management [facility] Start: 10-21-2024 Wound care [facility] Start: 10-21-2024 Recommendation to continue with treatment [facility] Start: 10-21-2024 Admission procedure [facility] Start: 10-21-2024 Introduction of urinary catheter [facility] Start: 10-21-2024 Measuring intake and output [facility] Start: 10-21-2024 Patient referral to dietitian [facility] Start: 10-21-2024 Referral for physical therapy [facility] Start: 10-21-2024 Referral to occupational therapist [facility] Start: 10-21-2024 Referral to service [facility] Start: 10-21-2024 Vital signs measurements [facility] Start: 10-21-2024 End: 10-21-2024 [facility] Start: 10-21-2024 Patient discharge [facility] Start: 10-18-2024 Admission procedure [facility] Start: 10-18-2024 Care regimes management [facility] Start: 10-17-2024 [facility] Start: 10-16-2024 Application of intermittent pneumatic compression device [facility] Start: 10-16-2024 Following clinical pathway protocol [facility] Start: 10-16-2024 Provision of overbed trapeze [facility] Start: 10-16-2024 Ambulation therapy management [facility] Start: 10-16-2024 Assessment of risk of venous thromboembolism [facility] Start: 10-16-2024 Catheterization of vein [facility] Start: 10-16-2024 Exercises [facility] Start: 10-16-2024 Neurovascular assessment [facility] Start: 10-16-2024 Procedure discontinued [facility] Start: 10-16-2024 Recommendation to continue with treatment [facility] Start: 10-16-2024 Referral for physical therapy [facility] Start: 10-16-2024 Referral to occupational therapist [facility] Start: 10-16-2024 Referral to service [facility] Start: 10-16-2024 Vital signs measurements [facility] Start: 10-16-2024 End: 10-16-2024 [facility] Start: 10-16-2024 Application of device [facility] Start: 10-16-2024 Application of elastic bandage [facility] Start: 10-16-2024 Introduction of urinary catheter [facility] Start: 10-16-2024 Measuring intake and output [facility] Start: 10-16-2024 Patient education [facility] Start: 10-16-2024 Provision of activity privileges [facility] Start: 10-16-2024 Wound care [facility] Start: 10-16-2024 Admission procedure [facility] Start: 10-16-2024 Consultation [facility] Start: 10-11-2024 CBC W Auto Differential panel - Blood [facility] Start: 10-11-2024 [facility] Start: 07-31-2024 Electrocardiographic procedure [facility] Start: 10-14-2022 Patient discharge [facility] Start: 10-13-2022 Development of care plan [facility] Start: 10-09-2022 Referral to service [facility] Start: 10-09-2022 [facility] Start: 10-04-2022 [facility] Start: 10-04-2022 [facility] Start: 09-26-2022 Developing a treatment plan [facility] Start: 09-26-2022 Development of care plan [facility] Start: 09-26-2022 Application of device [facility] Start: 09-25-2022 Wound care [facility] Start: 09-25-2022 Admission procedure [facility] Start: 09-25-2022 Measuring intake and output [facility] Start: 09-25-2022 Patient referral to dietitian [facility] Start: 09-25-2022 Referral to occupational therapist [facility] Start: 09-25-2022 Referral to service [facility] Start: 09-25-2022 Vital signs measurements [facility] Start: 09-25-2022 End: 09-25-2022 [facility] Start: 07-21-2018 [facility] Anion gap in Serum or Plasma [facility] Anion gap in Serum or Plasma [facility] Anion gap in Serum or Plasma [facility] Anion gap in Serum or Plasma [facility] Anion gap in Serum or Plasma [facility] Basic metabolic 2008 panel with ionized calcium - Serum or Plasma [facility] BUN/Creatinine ratio [facility] BUN/Creatinine ratio [facility] BUN/Creatinine ratio [facility] BUN/Creatinine ratio [facility] BUN/Creatinine ratio [facility] Calcium [Mass/volume ] in Serum or Plasma [facility] Calcium [Mass/volume ] in Serum or Plasma [facility] Calcium [Mass/volume ] in Serum or Plasma [facility] Calcium [Mass/volume ] in Serum or Plasma [facility] Calcium [Mass/volume ] in Serum or Plasma [facility] Carbon dioxide, tota l [Moles/volume] in Central venous blood [facility] Carbon dioxide, tota l [Moles/volume] in Central venous blood [facility] Carbon dioxide, tota l [Moles/volume] in Central venous blood [facility] Carbon dioxide, tota l [Moles/volume] in Central venous blood [facility] Carbon dioxide, tota l [Moles/volume] in Central venous blood [facility] CBC W Auto Different ial panel - Blood [facility] Work Phone: CBC W Auto Different ial panel - Blood [facility] CBC W Auto Different ial panel - Blood [facility] CBC W Auto Different ial panel - Blood [facility] CBC W Auto Different ial panel - Blood [facility] CBC W Auto Different ial panel - Blood [facility] CBC W Auto Different ial panel - Blood [facility] Comprehensive metabo lic 1999 panel - Serum or Plasma [facility] Comprehensive metabo lic 2000 panel - Serum or Plasma [facility] Creatinine [Mass/vol ume] in Serum or Plasma [facility] Creatinine [Mass/vol ume] in Serum or Plasma [facility] Creatinine [Mass/vol ume] in Serum or Plasma [facility] Creatinine [Mass/vol ume] in Serum or Plasma [facility] Creatinine [Mass/vol ume] in Serum or Plasma [facility] Erythrocyte mean cor puscular volume determination [facility] Erythrocyte mean cor puscular volume determination [facility] Erythrocyte mean cor puscular volume determination [facility] Erythrocyte mean cor puscular volume determination [facility] Erythrocyte mean cor puscular volume determination [facility] Glucose [Mass/volume ] in Serum or Plasma [facility] Glucose [Mass/volume ] in Serum or Plasma [facility] Glucose [Mass/volume ] in Serum or Plasma [facility] Glucose [Mass/volume ] in Serum or Plasma [facility] Glucose [Mass/volume ] in Serum or Plasma [facility] Hematocrit [Volume F raction] of Blood [facility] Hematocrit [Volume F raction] of Blood [facility] Hematocrit [Volume F raction] of Blood [facility] Hematocrit [Volume F raction] of Blood [facility] Hematocrit [Volume F raction] of Blood [facility] Hemoglobin [Mass/vol ume] in Blood [facility] Hemoglobin [Mass/vol ume] in Blood [facility] Hemoglobin [Mass/vol ume] in Blood [facility] Hemoglobin [Mass/vol ume] in Blood [facility] Hemoglobin [Mass/vol ume] in Blood [facility] Leukocytes [#/volume] in Blood [facility] Leukocytes [#/volume] in Blood [facility] Leukocytes [#/volume] in Blood [facility] Leukocytes [#/volume] in Blood [facility] Leukocytes [#/volume] in Blood [facility] Mean corpuscular hem oglobin concentration determination [facility] Mean corpuscular hem oglobin concentration determination [facility] Mean corpuscular hem oglobin concentration determination [facility] Mean corpuscular hem oglobin concentration determination [facility] Mean corpuscular hem oglobin concentration determination [facility] Mean corpuscular hem oglobin determination [facility] Mean corpuscular hem oglobin determination [facility] Mean corpuscular hem oglobin determination [facility] Mean corpuscular hem oglobin determination [facility] Mean corpuscular hem oglobin determination [facility] Measurement of renal function [facility] Measurement of renal function [facility] Measurement of renal function [facility] Measurement of renal function [facility] Measurement of renal function [facility] Neutrophil count [facility] Neutrophil count [facility] Neutrophil count [facility] Neutrophil count [facility] Neutrophil count [facility] Neutrophil percent d ifferential count [facility] Neutrophil percent d ifferential count [facility] Neutrophil percent d ifferential count [facility] Neutrophil percent d ifferential count [facility] Neutrophil percent d ifferential count [facility] Patient Education ED [facility] Work Phone: Patient referral [facility] Work Phone: Platelets [#/volume] in Blood [facility] Platelets [#/volume] in Blood [facility] Platelets [#/volume] in Blood [facility] Platelets [#/volume] in Blood [facility] Platelets [#/volume] in Blood [facility] Potassium measurement [facility] Potassium measurement [facility] Potassium measurement [facility] Potassium measurement [facility] Potassium measurement [facility] Red blood cell count [facility] Red blood cell count [facility] Red blood cell count [facility] Red blood cell count [facility] Red blood cell count [facility] Red cell distributio n width determination [facility] Red cell distributio n width determination [facility] Red cell distributio n width determination [facility] Red cell distributio n width determination [facility] Red cell distributio n width determination [facility] Serum chloride measurement [facility] Serum chloride measurement [facility] Serum chloride measurement W [facility] Serum chloride measurement [facility] Serum chloride measurement [facility] Sodium measurement [facility] Sodium measurement [facility] Sodium measurement [facility] Sodium measurement [facility] Sodium measurement [facility] Urea nitrogen [Mass/ volume] in Serum or Plasma [facility] Urea nitrogen [Mass/ volume] in Serum or Plasma [facility] Urea nitrogen [Mass/ volume] in Serum or Plasma [facility] Urea nitrogen [Mass/ volume] in Serum or Plasma [facility] Urea nitrogen [Mass/ volume] in Serum or Plasma [facility] Immunizations Immunization Date Immunization Notes Care Provider Fa cility 11-23-2020 Covid (Moderna) Dr. Dago Emery Work Phone: [facility] 10-26-2020 Covid (Chairish) Dr. Dago Emery Work Phone: [facility] 01-16-2020 influenza, injectabl e, quadrivalent, preservative free Dr. Dago Emery Work Phone: [facility] 11-23-[address] Dago Emery Work Phone: [facility] 09-07-[address] Dago Emery Work Phone: [facility] 01-12-2019 influenza, injectabl e, quadrivalent, preservative free Dr. Dago Emery Work Phone: [facility] 12-20-2008 pneumococcal vaccine , unspecified formulation Dr. Dago Emery Work Phone: [facility] 07-21-2008 pneumococcal polysaccharide vaccine, [address] Dago Emery Work Phone: [facility] Payers Date Payer Category Payer Self-pay [id number] 2018 Medicare [id number] 2018 Private Health Insurance [id number] Unknown [facility] PACKAGE PLAN [id number] Unknown [id number] 2.16.840.1.054494.3.579.2.462 Unknown [id number] 2.16.840.1.395341.3.579.2.462 Unknown [id number] 2.16.840.1.724190.3.579.2.462 Unknown [id number] 2.16.840.1.986701.3.579.2.462 Unknown [id number] 2.16.840.1.869259.3.579.2.462 Unknown [id number] 2.16.840.1.113156.3.579.2.462 Unknown [id number] 2.16.840.1.218705.3.579.2.462 Unknown [id number] 2.16.840.1.169398.3.579.2.462 Unknown [id number] 2.16.840.1.737744.3.579.2.462 Unknown [id number] 2.16.840.1.508197.3.579.2.462 Unknown [id number] 2.16.840.1.169779.3.579.2.462 Unknown [id number] 2.16.840.1.502694.3.579.2.462 Unknown [id number] 2.16.840.1.917957.3.579.2.462 Unknown [id number] 2.16.840.1.179702.3.579.2.462 Unknown [id number] 2.16.840.1.603934.3.579.2.462 Unknown [id number] 2.16.840.1.254289.3.579.2.462 Unknown [id number] 2.16.840.1.783424.3.579.2.462 Unknown [id number] 2.16.840.1.766184.3.579.2.462 Unknown [id number] 2.16.840.1.072406.3.579.2.462 Unknown [id number] 2.16.840.1.281587.3.579.2.462 Unknown [id number] 2.16.840.1.056642.3.579.2.462 Unknown [id number] 2.16.840.1.700613.3.579.2.462 Unknown [id number] 2.16.840.1.385231.3.579.2.462 Unknown [id number] 2.16.840.1.787608.3.579.2.462 Unknown [id number] 2.16.840.1.707897.3.579.2.462 Unknown [id number] 2.16.840.1.103658.3.579.2.462 Unknown [id number] 2.16840.1.097469.3.579.2.462 Unknown [id number] 2.16.840.1.858261.3.579.2.462 Unknown [id number] 2.16840.1.108572.3.579.2.462 Unknown [id number] 2.16.840.1.560401.3.579.2.462 Unknown [id number] 2.16840.1.361686.3.579.2.462 Unknown [id number] 2.16840.1.793556.3.579.2.462 Unknown [id number] 2.16840.1.512469.3.579.2.462 Unknown [id number] 2.16840.1.227514.3.579.2.462 Unknown [id number] 2.16840.1.879164.3.579.2.462 Social History Date Type Detail Facility Start: 07-24-2020 End: 09-25-2022 Tobacco smoking status MIIS Unknown if ever smoked [facility] Start: 04-16-2014 None [facility] Start: 12-02-2018 Non-smoker [facility] Start: 1945 Sex Assigned At Female W [facility] Start: 07-31-2024 End: 01-05-2025 Tobacco smoking status NHIS Never smoked tobacco (finding) [facility] Not [facility] Medical Equipment Procedure Code Equipment Code Equipment Origin al Text Equipment Identifier Dates ([id number]) ()[id number] 7)[id number] FDA Start: 09-23-2022 ([id number]) ()[id number] [id number] 7)[id number])[id number] FDA Start: 09-23-2022 ([id number]) ()[id number] [id number] 7)[id number] FDA Start: 09-23-2022 ([id number]) ()[id number] 7)[id number])[id number] FDA Start: 09-23-2022 ([id number]) [id number] [id number] 7)[id number] FDA Start: 10-16-2024 ()[id number] 691(1 7)[id number])[id number] FDA Start: 10-16-2024 ([id number]) ()[id number] [id number] 7)[id number] FDA Start: 10-16-2024 (199746761) ()[id number] [id number] 7)[id number])[id number] FDA Start: 10-16-2024 (180778147) ()[id number] 702(1 7)[id number] FDA Start: 10-16-2024 (770922284) ()[id number] 702(1 7)[id number] FDA Start: 10-16-2024 (318245019) ()[id number] [id number] 7)[id number] FDA Start: 10-16-2024 [id number] 0)[id number] FDA Start: 10-16-2024 Goals Date Patient Goal Desired Activity /State Functional Status Date Assessment Result Facility 11-28-2024 Functional status Chair [facility] Work Phone: 11-27-2024 Functional status Standard Walker [facility] Work Phone: 11-01-2024 Functional status Bedrest [facility] Work Phone: 10-31-2024 Functional status Standard Walker [facility] Work Phone: 10-21-2024 Functional status Stand and pivot [facility] Work Phone: 10-14-2022 Functional status Activity Ability Indepe ndent [facility] Work Phone: 10-13-2022 Functional status [facility]ulates;[facility]: 10-12-2022 Functional status Tolerates Activity Well [facility] Work Phone: Mental Status Date Assessment Result Facility 11-28-2024 Cognitive function Voice/Name [facility] Work Phone: 11-18-2024 [facility]: 11-01-2024 Cognitive function Voice/Name [facility] Work Phone: 10-31-2024 Cognitive function Appropriate;Cooperativ e [facility] Work Phone: 10-21-2024 Cognitive function Voice/Name [facility] Work Phone: 10-14-2022 Cognitive function Voice/Name [facility] Work Phone: 10-07-2022 Cognitive function Appropriate [facility] Work Phone: Clinical Notes 07-10-2024 to 11-24-2024 Note Date & Type Note Facility 11-24-2024 Discharge summary Note Date/Time November 24, 2024 2:01pm [facility] Medical Records Department [address] [place] [address] Discharge Summary 11/24/24 1351 MR#: [id number] Acct: [id number] Name: BERNICE HASSAN Rep #:[id number] : 1945 79 From: Dago Emery MD PCP: Dr. Dago Emery MD Status:ADM I N Location: [place] [address] Providers Date of Admission: 10/21/24 Primary Care [...] BID for 1 month. Discharge 11/28/2024 to [facility], [facility], private pay, part B therapies. Physical Exam [...] % (Auto) 64.5, Lymph % (Auto) 27.0, Nuckolls % (Auto) 5.3, Eos % (Auto) 2.2, [...] instructions: No Additional Instructions: Discharge 11/28/2024 to [facility], intermediate, private pay, part B therapies. Please Follow Up With: JOEY POTTS (ORTHO) When: As scheduled. Meaningful Use Info Meaningful Use Meaningful Use Diagnoses (Choose all that apply): None applicable Discharge Plan Admission Admit Date/Time: 10/21/24 14:09 Primary Reason for Your Visit: Debility. Attending Provider: Dago Emery Chi Primary Care Provider: Dago Emery Chi Instructions Additional Instructions / Restrictions: Discharge 11/28/2024 to [facility], intermediate, private pay, part B therapies. [...] applicable): CC: Dr. Dago Emery MD~ Signed [facility] Work Phone: 1(232) 333-445009-05-2025 Discharge summary Author Dago Rupert [facility] Note Date/Time November 24, 2024 2:01pm [facility] Medical Records Department [address] [place] [address] Transfer to [facility] Care MR#: [id number] Acct: [id number] Name: BERNICE HASSAN Rep #:[id number] : 1945 79 From: Dago Emery MD PCP: Dr. Dago Emery MD Status:ADM I N Certification of patient admission REQUIRED AT TIME OF ADMISSION. I CERTIFY THAT POST-HOSPITAL ECF SERVICES ARE REQUIRED TO BE GIVEN ON AN IN-PATIENT BASIS BECAUSE OF THE ABOVE NAMED PATIENT'S NEED FOR HALF-WAY CARE ON A CONTINUING BASIS FOR THE CONDITION(S) FOR WHICH HE/SHE WAS RECEIVING IN-PATIENT HOSPITAL SERVICES PRIOR TO HIS/HER [facility] 11/24/24 1401<Electronically signed by Dago Emery [...] Additional Instructions / Restrictions: Discharge 11/28/2024 to [facility], [facility], private pay, part B therapies. Discharge Orders/Prescriptions [...] [facility] 11/24/24 1401 <Electronically signed by aDgo Emery MD> Cosigner Signature (if applicable): CC: Dr. Dago Emery MD ~ [facility] Work Phone: 1(209) 845-724609-05-2025 Discharge summary [facility] Medical Records Department [address] [place] [address] Discharge Summary 11/24/24 1351 MR#: [id number] Acct: [id number] Name: BERNICE HASSAN Rep #:[id number] : 1945 79 From: Dago Emery MD PCP: Dr. Dago Emery MD Status:ADM I N Location: [place] [address] Providers Date of Admission: 10/21/24 Primary Care Physician: Dr. Dago Emery MD Consultations 10/31/24 07:27 Consult: Gastroenterology Routine Consulting Provider: [facility] Reason for Consult: Anemia, +Hemoccult. EMERGENT [...] BID for 1 month. Discharge 11/28/2024 to [facility], [facility], private pay, part B therapies. Physical Exam [...] % (Auto) 64.5, Lymph % (Auto) 27.0, Nuckolls % (Auto) 5.3, Eos % (Auto) 2.2, [...] instructions: No Additional Instructions: Discharge 11/28/2024 to [facility], intermediate, private pay, part B therapies. Please Follow Up With: JOEY POTTS (ORTHO) When: As scheduled. Meaningful Use Info Meaningful Use Meaningful Use Diagnoses (Choose all that apply): None applicable Discharge Plan Admission Admit Date/Time: 10/21/24 14:09 Primary Reason for Your Visit: Debility. Attending Provider: Dago Emery Chi Primary Care Provider: Dago Emery Chi Instructions Additional Instructions / Restrictions: Discharge 11/28/2024 to [facility], intermediate, private pay, part B therapies. [...] applicable): CC: Dr. Dago Emery MD~ Signed [facility]09-05-2025 Discharge summary [facility] Medical Records Department [address] [place] [address] Transfer to [facility] MR#: [id number] Acct: [id number] Name: BERNICE HASSAN Rep #:[id number] : 1945 79 From: Dago Emery MD PCP: Dr. Dago Emery MD Status:ADM I N Certification of patient admission REQUIRED AT TIME OF ADMISSION. I CERTIFY THAT POST-HOSPITAL F SERVICES ARE REQUIRED TO BE GIVEN ON AN IN-PATIENT BASIS BECAUSE OF THE ABOVE NAMED PATIENT'S NEED FOR HALF-WAY CARE ON A CONTINUING BASIS FOR THE CONDITION(S) FOR WHICH HE/SHE WAS RECEIVING IN-PATIENT HOSPITAL SERVICES PRIOR TO HIS/HER TRANSFER [facility]. 11/24/24 1401 Diet Diet Order/Speech Therapy: [...] Additional Instructions / Restrictions: Discharge 11/28/2024 to [facility], [facility], private pay, part B therapies. Discharge Orders/Prescriptions [...] applicable): CC: Dr. Dago Emery MD ~ [facility]09-05-2025 [facility]08-25-2025 Progress note Author Dago Emery [facility] Note Date/Time November 13, 2024 7: 55pm [facility] Medical Records Department [address] [place] [address] Progress Note - TCU 11/13/241948 MR#: [id number] Acct: [id number] Name: BERNICE HASSAN Rep #:[id number] : 1945 79 From: Dago Emery MD PCP: Dr. Dago Emery MD Status:ADM I N Location: [place] [address] Subjective Subjective Patient seen, examined for regulatory visit. She has no new complaints. She issitting in recliner with her left leg elevated. She appears bored. She is resigned to going to [facility] once insurances cuts her. 11/01/2024 [...] ~ Signed [facility] Work Phone: 1(190) 390-718108-25-2025 Progress note [facility] Medical Records Department [address] [place] [address] Progress Note - [facility] 11/13/241948 MR#: [id number] Acct: [id number] Name: BERNICE HASSAN Rep #:[id number] : 1945 79 From: Dago Emery MD PCP: Dr. Dago Emery MD Status:ADM I N Location: [place] [address] Subjective Subjective Patient seen, examined for regulatory visit. She has no new complaints. She issitting in recliner with her left leg elevated. She appears bored. She is resigned to going to [facility] once insurances cuts her. 11/01/2024 [...] ~ Signed [facility]08-15-2025 Radiology Diagnostic study note [facility] Imaging Services [address] [place] [address] Ankle min 3 Views MR#: [id number] Acct: [id number] Name: HASSANBERNICE K Rep #: [id number] : 1945 F 79 From: Lynda Batres MD PCP: Dr. Dago Emery MD Status: ADM I N Study:Ankle min 3 Views Date of Exam: Exam# [id number] Ordering Dr: Grayson Rodriguez MD PROCEDURE: ANKLE [...] fracture deformity of distal fibula. Reading Location: [facility] CC: Dr. Geo Rodriguez MD; Dr. Dago Emery MD ~ Medical Collections Specialist: Signed [facility]08-13-2025 Consult note [facility] Medical Records Department [address] [place] [address] Anesthesia Postop Eval II 11/01/24 1633 MR#: [id number] Acct: [id number] Name: BERNICE HASSAN Rep #:[id number] : 1945 79 From: Dinorah Headley LOG HAUL OPERATOR PCP: Dr. Dago Emery MD Status:REG S DC Y Race: C Location: [address] Anesthesia Postop Eval I Sum Postop Eval Completion status Anesthesia document: Postop Eval 1 completed: Yes Anesthesia Postop Eval I Summary Anesthesia Postop Eval I Summary: Anesthesia Postop Eval I: Assessment Summary Airway patent Yes 11/01/24 16:13 LOG HAUL OPERATOR.[email or web address] Spontaneous unlabored Yes 11/01/24 16:13 LOG HAUL OPERATOR.JBLOU respirations Mental status Awake,Calm 11/01/24 16:13 LOG HAUL OPERATOR.JBLOU nausea No 11/01/24 16:13 LOG HAUL OPERATOR.JBLOU Vomiting No 11/01/24 16:13 LOG HAUL OPERATOR.JBLOU Anesthesia Postop Eval I: Fluid Summary Crystalloid volume administer 200 11/01/24 16:13 LOG HAUL OPERATOR.JBLOU (ml) Colloids volume administered ( ml) Blood Product volume administered (ml) Total IV fluid infused 200 11/01/24 16:13 LOG HAUL OPERATOR.JBLOU Anesthesia Postop Eval I: Summary Notes Anesthesia Complication No 11/01/24 16:13 LOG HAUL OPERATOR.JBLOU Anesthesia Complication Comment: Post-operative progress note Anesthesia: Postop Eval II Evaluation Mental status: Awake Pain Level: 0 nausea: No Vomiting: No 11/01/24 1633 a LOG HAUL OPERATOR> Date _ Dinorah Headley LOG HAUL OPERATOR Cosigner Signature: Date CC: ~ Signed [facility]08-13-2025 Procedure note [facility] Medical Records Department [address] [place] [address] [place] [address] EGD Report MR#: [id number] Acct: [id number] Name: BERNICE HASSAN Rep #:[id number] : 1945 79 From: Pio Webb DO [...] present medications. Procedure Code(s): --- Professional --- 68611, Small intestinal endoscopy, enteroscopy beyond second portion of duodenum, not including ileum; with biopsy, single or multiple CPT copyright 2021 [employer]. All rights reserved. The codes documented in this report are preliminary and upon reservations clerk review may be revised to meet current compliance requirements. Pio Webb DO 11/01/2024 4:13:52 PM This report has been signed electronically. Number of Addenda: 0 Note Initiated On: 11/01/2024 3:55 PM 11/01/24 1614 Date _ Pio Webb DO Cosigner Signature: Date (if indicated) CC: Dr. Dago Emery MD; Pio Webb DO ~ Date Dictated: 11/01/24 0412 Date Transcribed: Medical Collections Specialist: GOKUL Signed [facility]08-13-2025 Procedure note [facility] Medical Records Department [address] [place] [address] Provation Physician Letter MR#: [id number] Acct: [id number] Name: BERNICE HASSAN Rep #:[id number] : 1945 79 From: Pio Webb DO PCP: Dr. Dago Emery MD Status:REG S DC 11/01/2024 Dago Emery MD [address] [place] [address] Re : Upper GI endoscopy procedure for [...] Pio Webb DO ~ Date Dictated: 11/01/24 0762 Date Transcribed: Medical Collections Specialist: RF Signed [facility]08-13-2025 Consult note [facility] Medical Records Department [address] [place] [address] Anesthesia Postop Eval I 11/01/24 1613 MR#: [id number] Acct: [id number] Name: BERNICE HASSAN Rep #:[id number] : 1945 79 From: Franklyn CHAMBERS PCP: Dr. Dago Emery MD Status:REG S DC Y Race: C Location: [address] Anesthesia: Postop Eval I Current Vital [...] Postop Eval 1 completed: Yes 11/01/24 161 LOG HAUL OPERATOR> Date _ Franklyn Lopez LOG HAUL OPERATOR Cosigner Signature: Date CC: ~ Signed [facility]08-13-2025 Consult note [facility] Medical Records Department [address] [place] [address] Pre-Anesthesia Evaluation 11/01/24 1539 MR#: [id number] Acct: [id number] Name: BERNICE HASSAN Rep #:[id number] : 1945 79 From: Avery Crocker PCP: Dr. Dago Emery MD Status:REG S DC Y Race: C Location: [address] ASA Classification* ASA Classification ASA Classification: [...] Procedure(s): EGD Anesthesia History Anesthesia History - senior principal: Anesthesia History - senior principal Hx Hospitalization Yes 11/01/24 15:07 Any Problems [...] take am of surgery PONV PONV - senior principal: PONV - senior principal Female Yes 11/01/24 15:07 HX of Motion [...] 11/01/24 15:07 Respiratory Assessment Respiratory Assessment - senior principal: Respiratory Tract Infection Hx - senior principal Hx Respiratory Tract Infection No 11/01/24 15:07 STOP Sleep Apnea STOP Sleep Apnea - senior principal: STOP Sleep Apnea - senior principal Hx Hypertension Yes 11/01/24 15:07 Hx Sleep [...] Tobacco Use History Tobacco Use History - senior principal: Tobacco Use History - senior principal Tobacco Use Smoking Status Never smoker 11/01/24 15:07 Hx Tobacco Use No 11/01/24 15:07 Years Smoking Packs Smoked per Day Smoking Cessation Date was within the last 15 years Hx Smoking Cessation Date Hx Smoking Cessation Counseling Hematologic Medial History Hematologic Hx - senior principal: Hematologic Medical Hx - documentation writer Hx of Blood Transfusion No 11/01/24 15:07 [...] confused, unrespo /Reproduction History /Reproductive History - senior principal: /Reproductive Hx- senior principal Hx Now Gestational Age (in weeks): EDC: [...] surgery Social History [facility] members[facility] Smoking Status: Never smoker second hand exposure: No alcohol intake: never substance use type: does not use justice/yarsani: Taoism seatbelt use: always do you feel safe at home: Yes Review of Systems (Anesthesia) ROS Narrative System reviewed and no additional complaints, except as documented. 11/01/24 1603 MD> Date _ Avery Rod MD Cosigner Signature: Date CC: ~ Signed [facility]08-13-2025 History and physical note [facility] Medical Records Department [address] [place] [address] History & Physical Exam 11/01/24 1523 MR#: [id number] Acct: [id number] Name: BERNICE HASSAN Rep #:[id number] : 1945 79 From: Pio Friend DO PCP: Dr. Dago Emery MD Status:REG S DC Location: [place] [address] HPI - General General Date of Admission: [...] part of recently but thelast 5 years. [facility] Medical History Cardiology follow-up encounter [...] never substance use type: does not use justice/yarsani: Taoism seatbelt use: always do you feel safe [...] Dago Emery MD; Pio Webb DO~ Signed [facility]08-13-2025 [facility] Consult note Author Pio Webb [facility] Note Date/Time October 31, 2024 9: 58am [facility] Medical Records Department [address] [place] [address] Consultation - GI 10/31/24 0951 MR#: [id number] Acct: [id number] Name: BERNICE HASSAN Rep #:[id number] : 1945 79 From: Pio Webb DO PCP: Dr. Dago Emery MD Status:ADM I N Location: [place] [address] HPI Consult Data Date of Consult: 10/31/24 [...] part of recently but thelast 5 years. [facility] Medical History Cardiology follow-up encounter [...] surgery Social History [facility] members: [facility] Smoking Status: Never smoker second hand exposure: No alcohol intake: never substance use type: does not use justice/yarsani: Taoism seatbelt use: always do you feel safe [...] ASA 3. Charges/Coding Visit Charges Inpatient E&M: 49243 SNF Init L2 10/31/24 0958 <Electronically signed by Pio Webb DO> Cosigner Signature (if applicable): CC: Dr. Dago Emery MD~ Signed [facility] Work Phone: 1(815) 252-736708-12-2025 Radiology Diagnostic study note [facility] Imaging Services [address] [place] [address] Ankle min 3 Views MR#: [id number] Acct: [id number] Name: BERNICE HASSAN Rep #: [id number] : 1945 F 79 From: Kaushik Bacon MD PCP: Dr. Dago Emery MD Status: ADM I N Study:Ankle min 3 Views Date of Exam: Exam# [id number] Ordering Dr: Dago Emery MD PROCEDURE: ANKLE [...] to prior. Likely subacute injury Reading Location: [facility] CC: Dr. Dago Emery MD ~ Medical Collections Specialist: Signed [facility]08-12-2025 Radiology Diagnostic study note [facility] Imaging Services [address] [place] [address] Knee 1 or 2 Views MR#: [id number] Acct: [id number] Name: BERNICE HASSAN Rep #: [id number] : 1945 F 79 From: Antonio Caballero MD PCP: Dr. 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 There isgood alignment. 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 There is good alignment. Reading Location: [place] [address] CC: Dr. Dago Emery MD ~ Medical Collections Specialist: Signed [facility]08-12-2025 Consult note [facility] Medical Records Department [address] [place] [address] Consultation - GI 10/31/24 0951 MR#: [id number] Acct: [id number] Name: BERNICE HASSAN Rep #:[id number] : 1945 79 From: Pioleoncio Webb DO PCP: Dr. Dago Emery MD Status:ADM I N Location: [facility] TC5 HPI Consult Data Date of Consult: [...] part of recently but thelast 5 years. [facility] Medical History Cardiology follow-up encounter [...] surgery Social History [facility] members: [facility] Smoking Status: Never smoker second hand exposure: No alcohol intake: never substance use type: does not use justice/yarsani: Taoism seatbelt use: always do you feel safe [...] ASA 3. Charges/Coding Visit Charges Inpatient E&M: 59294 SNF Init L2 10/31/24 0958 Cosigner Signature (if applicable): CC: Dr. Dago Emery MD~ Signed [facility]08-05-2025 History and physical note Author Dago Rupert [facility] Note Date/Time October 24, 2024 5:2 8pm [facility] Medical Records Department [address] [place] [address] History & Physical Exam 10/21/24 1747 MR#: [id number] Acct: [id number] Name: BERNICE HASSAN Rep #:[id number] : 1945 79 From: Dago Emery MD PCP: Dr. Dago Emery MD Status:ADM I N Location: [place] [address] HPI - General General Date of Admission: 10/21/24 Date of Service: 10/23/24 Chief Complaint: Here for rehabilitation. HPI Narrative BERNICE HASSAN, is a 79 Female who presents with followin10/16/2024 Admit [facility]. 10/16/2024 Dr. Rodriguez performed left total knee [...] rehabilitation, strengthening, prior to discharge home alone. [facility] Medical History (Updated 10/21/24 @ [...] never substance use type: does not use justice/yarsani: Taoism seatbelt use: always do you feel safe [...] cc: Dr. Dago Emery MD ~* Signed [facility] Work Phone: 1(309) 388-648308-05-2025 History and physical note [facility] Medical Records Department [address] [place] [address] History & Physical Exam 10/21/24 1747 MR#: [id number] Acct: [id number] Name: BERNICE HASSAN Rep #:[id number] : 1945 79 From: Dago Emery MD PCP: Dr. Dago Emery MD Status:ADM I N Location: [facility] TCU15-1 HPI - General General Date of Admission: 10/21/24 Date of Service: 10/23/24 Chief Complaint: Here for rehabilitation. HPI Narrative BERNICE HASSAN, is a 79 Female who presents with followin10/16/2024 Admit [facility]. 10/16/2024 Dr. Rodriguez performed left total knee [...] rehabilitation, strengthening, prior to discharge home alone. [facility] Medical History (Updated 10/21/24 @ [...] surgery Social History [facility] members: none [facility] Smoking Status: Never smoker second hand exposure: No alcohol intake: never substance use type: does not use justice/yarsani: Taoism seatbelt use: always do you feel safe [...] cc: Dr. Dago Emery MD ~* Signed [facility]08-04-2025 Progress note Author Freddie Cameron [facility] Note Date/Time October 23, 2024 3:1 4pm [facility] Medical Records Department [address] [place] [address] Progress Note - Pharmacy 10/23/24 1439 MR#: [id number] Acct: [id number] Name: BERNICE HASSAN Rep #:[id number] : 1945 79 From: Freddie Cameron PCP: Dr. Dago Emery MD Status:ADM I N Location: [place] [address]- Documented by User: Freddie Cameron 10/23/24 14:58 [...] 50 Mg Tablet PO 50 mg DAILY@0800 [facility] Administration Protocol Cholecalciferol 25 mcg 10/22/24 [...] 325 Mg Tablet PO Not Given 1200,1700 [facility] Folic Acid 1 mg 10/22/24 08:00 10/23/24 09:34 Folic Acid 1 Mg Tablet PO 1 mg BREAKFAST [facility] Administration Hydroxyurea 1,000 mg 10/23/24 10:00 10/23/24 09:35 Hydroxyurea 500 Mg Capsule PO 1,000 mg MoTuThFrSa@1000 [facility] Administration Levothyroxine Sodium 50 mcg 10/22/24 06:00 10/23/24 05:44 Levothyroxine 50 Mcg Tablet PO 50 mcg DAILY@0600 [facility] Administration Losartan Potassium 100 mg 10/22/24 10:00 10/23/24 09:34 Losartan Potassium 100 Mg Tablet PO 100 mg DAILY [facility] Administration Protocol Magnesium Citrate 300 ml [...] Sodium 1 Tablet PO 2 tablet BID [facility] Administration Tuberculin PPD 0.1 ml 10/29/24 [...] Comments to Recommendations by Pharmacy Agree 10/23/24 1459 <Electronically signed by Freddie Cameron> Freddie Cameron Cosigner Signature (if applicable): 10/23/24 1514 <Electronically signed by Dago Emery MD> CC: ~ Signed [facility] Work Phone: 1(532) 697-776208-04-2025 Progress note [facility] Medical Records Department [address] [place] [address] Progress Note - Pharmacy 10/23/24 1439 MR#: [id number] Acct: [id number] Name: BERNICE HASSAN Rep #:[id number] : 1945 79 From: Freddie Cameron PCP: Dr. Dago Emery MD Status:ADM I N Location: [place] [address] Documented by User: Freddie Cameron 10/23/24 14:58 [...] 500 Mg Tablet PO 500 mg Q8 [facility] Administration Amlodipine Besylate 5 mg 10/22/24 10:00 10/23/24 09:35 Amlodipine 5 Mg Tablet PO 5 mg DAILY [facility] Administration Protocol Aspirin 81 mg 10/21/24 17:00 10/23/24 09:34 Aspirin 81 Mg Tab.Chew PO 11/18/24 17:01 81 mg BIDCM [facility] Administration Atenolol 50 mg 10/22/24 08:00 10/23/24 09:34 Atenolol 50 Mg Tablet PO 50 mg DAILY@0800 [facility] Administration Protocol Cholecalciferol 25 mcg 10/22/24 10:00 10/23/24 09:36 Cholecalciferol (Vit D3) 25 Mcg Tablet (1,000 Units) PO 25 mcg DAILY [facility] Administration Doxycycline Monohydrate 100 mg 10/21/24 22:00 10/23/24 09:35 Doxycycline 100 Mg Capsule PO 10/30/24 22:01 100 mg BID [facility] Administration Famotidine 20 mg 10/22/24 10:00 10/23/24 09:35 Famotidine 20 Mg Tablet PO 20 mg DAILY [facility] Administration Ferrous Sulfate 325 mg 10/21/24 17:00 10/22/24 16:36 Ferrous Sulfate 325 Mg Tablet PO Not Given 1200,1700 [facility] Folic Acid 1 mg 10/22/24 08:00 10/23/24 09:34 Folic Acid 1 Mg Tablet PO 1 mg BREAKFAST [facility] Administration Hydroxyurea 1,000 mg 10/23/24 10:00 10/23/24 09:35 Hydroxyurea 500 Mg Capsule PO 1,000 mg MoTuThFrSa@1000 [facility] Administration Levothyroxine Sodium 50 mcg 10/22/24 [...] 1458 Freddie Germain Signature (if applicable): 10/23/24 4160 CC: ~ Signed [facility]08-02-2025 [facility]20[facility] Discharge summary Author Nela Rodrigo [facility] Note Date/Time October 21, 2024 11: 05am [facility] Medical Records Department [address] [place] [address] Discharge Summary 10/21/24 1100 MR#: [id number] Acct: [id number] Name: BERNICE HASSAN Rep #:[id number] : 1945 79 From: Nela CORNELIUS PCP: Dr. Dago Emery MD Status:ADM I N Location: [place] [address] Providers Date of Admission: 10/18/24 Primary Care Physician: Dr. Dago Emery MD Consultations 10/16/24 14:53 Consult: Hospitalist Routine Consulting Provider: [facility] Reason for Consult: post op [...] feel patient is ready for discharge to shelter facility. Patient states that she feels much [...] % (Auto) 54.7, Lymph % (Auto) 27.2, Nuckolls % (Auto) 15.2 H, Eos % (Auto) [...] Week Facility: [facility] - Location: Laboratory Ordered By: Nela Wallace CBC W/Diff, Automated (Routine) Timeframe: 1 Week Facility: [facility] - Location: Laboratory Ordered By: Nela Wallace Referrals / Follow Up: Dago Emery Chi, MD [Primary Care Provider] - Disposition Disposition (needs filled in before D/C Order can be placed): Inpatient Rehab Unit/Facility 10/21/24 1105 <Electronically signed by Nela CORNELIUS> Cosigner Signature (if applicable): CC: ADRYAN Holland; Dr. Dago Emery MD~ Signed [facility] Work Phone: 1(578) 224-270508-02-2025 Discharge summary Author Nela Wallace [facility] Note Date/Time October 21, 2024 10: 59am [facility] Medical Records Department [address] [place] [address] Transfer to [facility] MR#: [id number] Acct: [id number] Name: BERNICE HASSAN Rep #:[id number] : 1945 79 From: Nela CORNELIUS PCP: Dr. Dago Emery MD Status:ADM I N Certification of patient admission REQUIRED AT TIME OF ADMISSION. I CERTIFY THAT POST-HOSPITAL ECF SERVICES ARE REQUIRED TO BE GIVEN ON AN IN-PATIENT BASIS BECAUSE OF THE ABOVE NAMED PATIENT'S NEED FOR HALF-WAY CARE ON A CONTINUING BASIS FOR THE [...] feel patient is ready for discharge to shelter facility. Patient states that she feels much [...] Week Facility: [facility] - Location: Laboratory Ordered By: Nela Wallace CBC W/Diff, Automated (Routine) Timeframe: 1 Week Facility: [facility] - Location: Laboratory Ordered By: Nela Wallace Referrals / Follow Up: Dago Emery Chi, MD [Primary Care Provider] - Disposition Disposition (needs filled in before D/C Order can be placed): Inpatient Rehab Unit/Facility 10/21/24 1059 <Electronically signed by Nela CORNELIUS> Cosigner Signature (if applicable): CC: Dr. Juliane Villa MD; Dr. Sofia Carvajal MD; Dr. Dago Emery MD ~ [facility] Work Phone: 1(849) 422-767008-02-2025 Progress note Author Nela Parkwood Hospital Note Date/Time October 21, 2024 10: 33am [facility] Medical Records Department [address] [place] [address] Progress Note - Orthopedic 10/21/24 1022 MR#: [id number] Acct: [id number] Name: BERNICE HASSAN Rep #:[id number] : 1945 79 From: Nela CORNELIUS PCP: Dr. Dago Emery MD Status:ADM I N Location: MS3 YS401-5 Subjective Subjective Patient is sitting comfortably in [...] % (Auto) 54.7, Lymph % (Auto) 27.2, Nuckolls % (Auto) 15.2 H, Eos % (Auto) [...] feel patient is ready for discharge to shelter facility. Patient states that she feels much [...] ~ Signed [facility] Work Phone: 1(603) 983-823108-02-2025 Discharge summary [facility] Medical Records Department [address] [place] [address] [place] [address] Discharge Summary 10/21/24 1100 MR#: [id number] Acct: [id number] Name: BERNICE HASSAN Rep #:[id number] : 1945 79 From: Nela CORNELIUS PCP: Dr. Dago Emery MD Status:ADM I N Location: [facility] [place] YS891-0 Providers Date of Admission: 10/18/24 Primary Care Physician: Dr. Dago Emery MD Consultations 10/16/24 14:53 Consult: Hospitalist Routine Consulting Provider: [facility] Reason for Consult: post op [...] feel patient is ready for discharge to shelter facility.Patient states that she feels much more [...] % (Auto) 54.7, Lymph % (Auto) 27.2, Nuckolls % (Auto) 15.2 H, Eos % (Auto) [...] Week Facility: [facility] - Location: Laboratory Ordered By: Nela Wallace CBC W/Diff, Automated (Routine) Timeframe: 1 Week Facility: [facility] - Location: Laboratory Ordered By: Nela Wallace Referrals / Follow Up: Dago Emery Chi, MD [Primary Care Provider] - Disposition Disposition (needs filled in before D/C Order can be placed): Inpatient Rehab Unit/Facility 10/21/24 1105 Cosigner Signature (if applicable): CC: ADRYAN Holland; Dr. Dago Emery MD~ Signed [facility]08-02-20[facility] Discharge summary [facility] Medical Records Department [address] [place] [address] Transfer to [facility] MR#: [id number] Acct: [id number] Name: BERNICE HASSAN Rep #:[id number] : 1945 79 From: Nela CORNELIUS PCP: Dr. Dago Emery MD Status:ADM I N Certification of patient admission REQUIRED AT TIME OF ADMISSION. I CERTIFY THAT POST-HOSPITAL ECF SERVICES ARE REQUIRED TO BE GIVEN ON AN IN-PATIENT BASIS BECAUSE OF THE ABOVE NAMED PATIENT'S NEED FOR HALF-WAY CARE ON A CONTINUING BASIS FOR THE CONDITION(S) FOR WHICH HE/SHE WAS RECEIVING IN-PATIENT HOSPITAL SERVICES PRIOR TO HIS/HER [facility] 10/21/24 1059 Diet Diet Order/Speech Therapy: [...] feel patient is ready for discharge to shelter facility.Patient states that she feels much more [...] Week Facility: [facility] - Location: Laboratory Ordered By: Nela Wallace CBC W/Diff, Automated (Routine) Timeframe: 1 Week Facility: [facility] - Location: Laboratory Ordered By: Nela Wallace Referrals / Follow Up: Dago Emery Chi, MD [Primary Care Provider] - Disposition Disposition (needs filled in before D/C Order can be placed): Inpatient Rehab Unit/Facility 10/21/24 1059 Cosigner Signature (if applicable): CC: Dr. Juliane Villa MD; Dr. Sofia Carvajal MD; Dr. Dago Emery MD ~ [facility]08-02-2025 Progress note [facility] Medical Records Department [address] [place] [address] Progress Note - Orthopedic 10/21/24 1022 MR#: [id number] Acct: [id number] Name: BERNICE HASSAN Rep #:[id number] : 1945 79 From: Nela CORNELIUS PCP: Dr. Dago Emery MD Status:ADM I N Location: TN3 LO173-4 Subjective Subjective Patient is sitting comfortably in [...] % (Auto) 54.7, Lymph % (Auto) 27.2, Nuckolls % (Auto) 15.2 H, Eos % (Auto) [...] feel patient is ready for discharge to shelter facility.Patient states that she feels much more [...] ~ Signed [facility]08-01-2025 Progress note Author Sofia Carvajal [facility] Note Date/Time October 20, 2024 4:4 6pm [facility] Medical Records Department [address] [place] [address] Progress Note - Hospitalist 10/20/24 1640 MR#: [id number] Acct: [id number] Name: BERNICE HASSAN Rep #:[id number] : 1945 79 From: Sofia Carvajal MD PCP: Dr. Dago Emery MD Status:ADM I N Location: MS3 PU264-1 Subjective Subjective Initially this morning patient complaining [...] per Ortho Charges/Coding Visit Charges Inpatient E&M: 84463 Subs Hosp L1 10/20/24 1646 <Electronically signed by Sofia Carvajal MD> Cosigner Signature (if applicable): CC: ~ Signed [facility] Work Phone: [phone]) 425-861208-01-2025 Progress note [facility] Medical Records Department [address] [place] [address] Progress Note - Hospitalist 10/20/24 1640 MR#: [id number] Acct: [id number] Name: BERNICE HASSAN Rep #:[id number] : 1945 79 From: Sofia Carvajal MD PCP: Dr. Dago Emery MD Status:ADM I N Location: [place] [address] Subjective Subjective Initially this morning patient complaining [...] per Ortho Charges/Coding Visit Charges Inpatient E&M: 31265 Subs Hosp L1 10/20/24 1646 Cosigner Signature (if applicable): CC: ~ Signed [facility]08-01-2025 Progress note Author Nela Wallace [facility] Note Date/Time October 20, 2024 11: 56am [facility] Medical Records Department [address] [place] [address] Progress Note - Orthopedic 10/20/24 1144 MR#: [id number] Acct: [id number] Name: BERNICE HASSAN Rep #:[id number] : 1945 79 From: Nela CORNELIUS PCP: Dr. Dago Emery MD Status:ADM I N Location: MS3 OE712-8 Subjective Subjective Patient is sitting comfortably in [...] feel patient is ready for discharge to shelter facility at this time. Due to the [...] ~ Signed [facility] Work Phone: [phone]) 987-987508-01-2025 Progress note [facility] Medical Records Department [address] [place] [address] Progress Note - Orthopedic 10/20/24 1144 MR#: [id number] Acct: [id number] Name: BERNICE HASSAN Rep #:[id number] : 1945 79 From: Nela CORNELIUS PCP: Dr. Dago Emery MD Status:ADM I N Location: MS3 SV759-6 Subjective Subjective Patient is sitting comfortably in [...] feel patient is ready for discharge to shelter facility at this time. Due to the [...] ~ Signed [facility]07-31-2025 Progress note Author Landen Potts [facility] Note Date/Time October 19, 2024 1:45 pm [facility] Medical Records Department [address] [place] [address] Progress Note - Orthopedic 10/19/24 1306 MR#: [id number] Acct: [id number] Name: BERNICE HASSAN Rep #:[id number] : 1945 79 From: Landen CORNELIUS PA-C PCP: Dr. Dago Emery MD Status:ADM I N Location: [place] [address] Subjective Subjective The patient was sitting in [...] (Auto) 66.7, Lymph % (Auto) 14.4 L, Nuckolls % (Auto) 17.1 H, Eos % (Auto) [...] feel patient is ready for discharge to shelter facility. Due to the acute distal tibia [...] ~ Signed [facility] Work Phone: [phone]) 987-429007-31-2025 Progress note [facility] Medical Records Department [address] [place] [address] Progress Note - Orthopedic 10/19/24 1306 MR#: [id number] Acct: [id number] Name: BERNICE HASSAN Rep #:[id number] : 1945 79 From: Landen CORNELIUS PA-C PCP: Dr. Dago Emery MD Status:ADM I N Location: [place] [address] Subjective Subjective The patient was sitting in [...] (Auto) 66.7, Lymph % (Auto) 14.4 L, Nuckolls % (Auto) 17.1 H, Eos % (Auto) [...] feel patient is ready for discharge to shelter facility. Due to the acute distal tibia [...] ~ Signed [facility]07-30-2025 Radiology Diagnostic study note [facility] Imaging Services [address] [place] [address] Knee 1 or 2 Views MR#: [id number] Acct: [id number] Name: BERNICE HASSAN Rep #: [id number] : 1945 F 79 From: Antonio Caballero MD PCP: Dr. Dago Emery MD Status: ADM I N Study:Knee 1 or 2 Views Date of Exam: Exam# [id number] Ordering Dr: Grayson Rodriguez MD PROCEDURE: KNEE [...] intramedullary nailing of the tibia. Reading Location: [id number] CC: Dr. Geo Rodriguez MD; Dr. Dago Emery MD ~ Medical Collections Specialist: Signed [facility]07-30-2025 Progress note Author See Valente [facility] Note Date/Time October 18, 2024 10:2 8am [facility] Medical Records Department [address] [place] [address] Progress Note - Hospitalist 10/18/24 1015 MR#: [id number] Acct: [id number] Name: BERNICE HASSAN Rep #:[id number] : 1945 79 From: See ko MD PCP: Dr. Dago Emery MD Status:ADM I NO Location: MS3 HQ243-4 Subjective Subjective Had a transient episode of [...] 73.5 H, Lymph % (Auto) 11.1 L, Nuckolls % (Auto) 14.6 H, Eos % (Auto) [...] fibular fracture associated. No dislocation. Reading Location: [place] [address] Physical Exam Narrative General: Alert, Oriented x3, [...] per Ortho Charges/Coding Visit Charges Inpatient E&M: 93334 Subs Hosp L2 10/18/24 1020 <Electronically signed by See Valente MD> Cosigner Signature (if applicable): CC: ~ Signed [facility] Work Phone: 1([phone]) 225-797107-30-2025 Progress note Author Nela Wallace [facility] Note Date/Time October 18, 2024 8:38 am [facility] Medical Records Department [address] [place] [address] Progress Note - Orthopedic 10/18/24 0826 MR#: [id number] Acct: [id number] Name: BERNICE HASSAN Rep #:[id number] : 1945 79 From: Nela CORNELIUS PCP: Dr. Dago Emery MD Status:ADM I NO Location: [address] Subjective Subjective Patient is anxious and [...] 73.5 H, Lymph % (Auto) 11.1 L, Nuckolls % (Auto) 14.6 H, Eos % (Auto) [...] extension appreciated. Congruent ankle mortise. Reading Location: [id number] Lower Extremity CT 10/17/24 21:42 IMPRESSION: Acute distal tibial meta diaphyseal junction fracture, no extension to the articular surface. No acute distal fibular fracture associated. No dislocation. Reading Location: [place] [address] Physical Exam Narrative JUDE hose in place [...] ~ Signed [facility] Work Phone: [phone]) 835-154107-30-2025 Progress note [facility] Medical Records Department [address] [place] [address] Progress Note - Hospitalist 10/18/24 1015 MR#: [id number] Acct: [id number] Name: BERNICE HASSAN Rep #:[id number] : 1945 79 From: See ko MD PCP: Dr. Dago Emery MD Status:ADM I NO Location: [place] [address] Subjective Subjective Had a transient episode of [...] 73.5 H, Lymph % (Auto) 11.1 L, Nuckolls % (Auto) 14.6 H, Eos % (Auto) [...] extension appreciated. Congruent ankle mortise. Reading Location: [id number] Lower Extremity CT 07/29/25 21:42 IMPRESSION: Acute distal tibial meta diaphyseal junction fracture, no extension to the articular surface. No acute distal fibular fracture associated. No dislocation. Reading Location: [place] [address] Physical Exam Narrative General: Alert, Oriented x3, [...] per Ortho Charges/Coding Visit Charges Inpatient E&M: 66765 Subs Hosp L2 10/18/24 1028 Cosigner Signature (if applicable): CC: ~ Signed [facility]07-30-2025 Progress note [facility] Medical Records Department [address] [place] [address] Progress Note - Orthopedic 10/18/2426 MR#: [id number] Acct: [id number] Name: BERNICE HASSAN Rep #:[id number] : 1945 79 From: Nela CORNELIUS PCP: Dr. Dago Emery MD Status:ADM I NO Location: MS3 SO009-1 Subjective Subjective Patient is anxious and down [...] 73.5 H, Lymph % (Auto) 11.1 L, Nuckolls % (Auto) 14.6 H, Eos % (Auto) [...] fibular fracture associated. No dislocation. [facility] Exam Narrative JUDE hose [...] ~ Signed [facility]07-29-2025 Radiology Diagnostic study note [facility] Imaging Services [address] [place], [place] [address] Extremity Lower without Contra MR#: [id number] Acct: [id number] Name: BERNICE HASSAN Rep #: [id number] : 1945 F 79 From: Saida Osman MD PCP: Dr. Dago Emery MD Status: ADM I NO Study:Extremity Lower without Contra Date of Exam: 10/17/24 Exam# [id number] Ordering Dr: Bharathi Wallace PROCEDURE: EXTREMITY LOWER [...] fibular fracture associated. No dislocation. Reading Location: [place] [address] CC: ADRYAN Holland; Dr. Dago Emery MD ~ Medical Collections Specialist: Signed [facility]07-29-2025 Radiology Diagnostic study note [facility] Imaging Services [address] [place] [address] Ankle min 3 Views MR#: [id number] Acct: [id number] Name: BERNICE HASSAN Rep #: [id number] : 1945 F 79 From: Yoshi Montes MD PCP: Dr. Dago Emery MD Status: ADM I NO Study:Ankle min 3 Views Date of Exam: Exam# [id number] Ordering Dr: Bharathi Wallace PROCEDURE: LEFT ANKLE [...] extension appreciated. Congruent ankle mortise. Reading Location: [id number] CC: ADRYAN Holland; Dr. Dago Emery MD ~ Medical Collections Specialist: Signed [facility]07-29-2025 Progress note Author Nela Wallace [facility] Note Date/Time October 17, 2024 4:03 pm [facility] Medical Records Department [address] [place] [address] Progress Note - Orthopedic 10/17/24 1554 MR#: [id number] Acct: [id number] Name: BERNICE HASSAN Rep #:[id number] : 1945 79 From: Nela CORNELIUS PCP: Dr. Dago Emery MD Status:ADM I NO Location: TN3 HP780-1 Subjective Subjective Patient appears to be comfortable [...] hardware and expected postop changes. Reading Location: [id number] Physical Exam Narrative JUDE hose in place [...] we will plan to discharge patient to [facility]. Patientwas educated she can continue to [...] ~ Signed [facility] Work Phone: [phone]) 605-888607-29-2025 Progress note [facility] Medical Records Department [address] [place] [address] Progress Note - Orthopedic 10/17/24 1554 MR#: [id number] Acct: [id number] Name: BERNICE HASSAN Rep #:[id number] : 1945 79 From: Nela CORNELIUS PCP: Dr. Dago Emery MD Status:ADM I NO Location: [place] [address]-1 Subjective Subjective Patient appears to be comfortable [...] hardware and expected postop changes. Reading Location: [id number] Physical Exam Narrative JUDE hose in place [...] we will plan to discharge patient to [facility]. Patientwas educated she can continue to [...] ~ Signed [facility]07-29-2025 Progress note Author See Valente [facility] Note Date/Time October 17, 2024 9:03 am [facility] Medical Records Department [address] [place] [address] Progress Note - Hospitalist 10/17/24 0857 MR#: [id number] Acct: [id number] Name: BERNICE HASSAN Rep #:[id number] : 1945 79 From: See ko MD PCP: Dr. Dago Emery MD Status:ADM I N Location: [place] [address] Subjective Subjective Doing well, no issues overnight. [...] per Ortho Charges/Coding Visit Charges Inpatient E&M: 07172 Subs Hosp L2 10/17/24 0903 <Electronically signed by See Valente MD> Cosigner Signature (if applicable): CC: ~ Signed [facility] Work Phone: [phone] Progress note [facility] Medical Records Department [address] [place] [address] Progress Note - Hospitalist 10/17/24 0857 MR#: [id number] Acct: [id number] Name: BERNICE HASSAN Rep #:[id number] : 1945 79 From: See ko MD PCP: Dr. Dago Emery MD Status:ADM I N Location: [place] [address] Subjective Subjective Doing well, no issues overnight. [...] per Ortho Charges/Coding Visit Charges Inpatient E&M: 85386 Subs Hosp L2 10/17/24 0903 Cosigner Signature (if applicable): CC: ~ Signed [facility]07-28-2025 Consult note Author Saulo Bullock [facility] Note Date/Time October 16, 2024 8:29 pm [facility] Medical Records Department [address] [place] [address] Consultation - Hospitalist 10/16/241953 MR#: [id number] Acct: [id number] Name: HASSANBERNICE K Rep #:[id number] : 1945 79 From: Saulo desai DO PCP: Dr. Dago Emery MD Status:ADM I N Location: [place] [address] Assessment & Plan Assessment/Plan (1) Status post total left knee replacement: PLAN: Plan Patient is an 79-year-old female who presented [facility] on 10/16/2024 for planned left total knee [...] presented to [facility] on 10/16/2024 for planned left knee replacement. [...] Denied any other pain or discomfort currently. [facility] Medical History Cardiology follow-up encounter [...] never substance use type: does not use justice/yarsani: Taoism seatbelt use: always do you feel safe [...] hardware and expected postop changes. Reading Location: [id number] Charges/Coding Visit Charges Inpatient E&M: 06608 Subs Hosp L2 10/16/242028 <Electronically signed by Saulo Bullock DO> Cosigner Signature (if applicable): CC: Dr. Geo Rodriguez MD; Dr. Dago Emery MD~ Signed [facility] Work Phone: 1([phone]) [phone] Consult note Author Ki Cabrera [facility] Note Date/Time October 16, 2024 6:50 pm [facility] Medical Records Department [address] [place] [address] Anesthesia Postop Eval I 10/16/24 1849 MR#: [id number] Acct: [id number] Name: BERNICE HASSAN Rep #:[id number] : 1945 79 From: Ki Cabrera MD PCP: Dr. Dago Emery MD Status:ADM I N Y Race: C Location: [place] [address] - Anesthesia: Postop Eval I Current Vital [...] MD > Date _ [facility] Date CC: ~ Signed [facility] Work Phone: [phone]) 306-251507-28-2025 Consult note Author Ki [facility] Note Date/Time October 16, 2024 6:50 pm [facility] Medical Records Department [address] [place] [address] Anesthesia Postop Eval II 10/16/24 185 MR#: [id number] Acct: [id number] Name: BERNICE HASSAN Rep #:[id number] : 1945 79 From: Ki Cabrera MD PCP: Dr. Dago Emery MD Status:ADM I N Y Race: C Location: [place] [address] - Anesthesia Postop Eval I Sum Postop [...] Level: 3 nausea: No Vomiting: No 10/16/24 6290 <Electronically signed by Ki Cabrera MD > Date _ Ki Cabrera MD Cosigner Signature: Date CC: ~ Signed [facility] Work Phone: [phone] Consult note [facility] Medical Records Department [address] [place] [address] Consultation - Hospitalist 10/16/241953 MR#: [id number] Acct: [id number] Name: BERNICE HASSAN Rep #:[id number] : 1945 79 From: Saulo desai DO PCP: Dr. Dago Emery MD Status:ADM I N Location: [place] [address] Assessment & Plan Assessment/Plan (1) Status post total left knee replacement: PLAN: Plan Patient is an 79-year-old female who presented [facility] on 10/16/2024 for planned left total knee [...] presented to [facility] on 10/16/2024 for planned left knee replacement. [...] Denied any other pain or discomfort currently. [facility] Medical History Cardiology follow-up encounter [...] never substance use type: does not use justice/yarsani: Taoism seatbelt use: always do you feel safe [...] hardware and expected postop changes. Reading Location: [id number] Charges/Coding Visit Charges Inpatient E&M: 14033 [facility] Hosp L2 10/16/242028 Cosigner Signature (if applicable): CC: Dr. Geo Rodriguez MD; Dr. Dago Emery MD~ Signed [facility]07-28-2025 Radiology Diagnostic study note [facility] Imaging Services [address] [place] [address] Knee 1 or 2 Views MR#: [id number] Acct: [id number] Name: BERNICE HASSAN Rep #: [id number] : 1945 F 79 From: Yoshi Montes MD PCP: Dr. Dago Emery MD Status: ADM I N Study:Knee 1 or 2 Views Date of Exam: Exam# [id number] Ordering Dr: Grayson Rodriguez MD PROCEDURE: LEFT [...] Rodriguez MD; Dr. Dago Emery MD ~ Medical Collections Specialist: Signed [facility]07-28-2025 Consult note [facility] Medical Records Department [address] [place] [address] Anesthesia Postop Eval I 10/16/24 1849 MR#: [id number] Acct: [id number] Name: BERNICE HASSAN Rep #:[id number] : 1945 79 From: Ki Cabrera MD PCP: Dr. Dago Emery MD Status:ADM I N Y Race: C Location: [place] [address] Anesthesia: Postop Eval I Current Vital Signs [...] ~ Signed [facility]07-28-2025 Consult note [facility] Medical Records Department [address] [place] [address] Anesthesia Postop Eval II 10/16/241849 MR#: [id number] Acct: [id number] Name: BERNICE HASSAN Rep #:[id number] : 1945 79 From: Ki Cabrera MD PCP: Dr. Dago Emery MD Status:ADM I N Y Race: C Location: [place] [address] Anesthesia Postop Eval I Sum Postop Eval [...] ~ Signed [facility]07-28-2025 Consult note Author Ki wali [facility] Note Date/Time October 16, 2024 10:5 1am [facility] Medical Records Department [address] [place] [address] Pre-Anesthesia Evaluation 10/16/24 1050 MR#: [id number] Acct: [id number] Name: BERNICE HASSAN Rep #:[id number] : 1945 79 From: Ki Cabrera MD PCP: Dr. Dago Emery MD Status:REG S DC Y Race: C Location: [place] [address] ASA Classification* ASA Classification ASA Classification: 2 [...] KNEE ARTHROPLASTY Anesthesia History Anesthesia History - senior principal: Anesthesia History - senior principal Hx Hospitalization No 10/04/24 13:47 Any Problems [...] take am of surgery PONV PONV - senior principal: PONV - senior principal Female Yes 10/04/24 13:47 HX of Motion [...] 10/11/24 15:05 Respiratory Assessment Respiratory Assessment - senior principal: Respiratory Tract Infection Hx - senior principal Hx Respiratory Tract Infection No 10/04/24 13:47 STOP Sleep Apnea STOP Sleep Apnea - senior principal: STOP Sleep Apnea - senior principal Hx Hypertension Yes: CONTROLLED WITH MED 10/04/24 [...] Tobacco Use History Tobacco Use History - senior principal: Tobacco Use History - senior principal Tobacco Use Smoking Status Never smoker 10/04/24 13:47 Hx Tobacco Use No 10/04/24 13:47 Years Smoking Packs Smoked per Day Smoking Cessation Date was within the last 15 years Hx Smoking Cessation Date Hx Smoking Cessation Counseling Hematologic Medial History Hematologic Hx - senior principal: 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 10/16/24 1051 <Electronically signed by Ki Cabrera MD > Date _ Ki Cabrera MD Cosigner Signature: Date CC: ~ Signed [facility] Work Phone: 1(336) 339-597807-28-2025 History and physical note Author Nela Wallace [facility] Note Date/Time October 16, 2024 10:3 7am [facility] Medical Records Department [address] [place] [address] History & Physical Exam 10/13/24 1655 MR#: [id number] Acct: [id number] Name: BERNICE HASSAN Rep #:[id number] : 1945 79 From: Nela CORNELIUS PCP: Dr. Dago Emery MD Status:REG S DC Location: [place] [address] History and Physical History and Physical Patient [...] LT Hip ORIF - (04/17/2014) JWG @ [facility] LT Leg - (2007) Knee Replacement RT - (09/23/2022) SAW RT TKR ROBOTIC AT [facility] Anesthesia Complications: None Assistive Devices: Glasses, Walker [...] ~* Signed [facility] Work Phone: 1(679) 310-827507-28-2025 Consult note [facility] Medical Records Department [address] [place] [address] Pre-Anesthesia Evaluation 10/16/24 1050 MR#: [id number] Acct: [id number] Name: BERNICE HASSAN Rep #:[id number] : 1945 79 From: Ki Cabrera MD [...] KNEE ARTHROPLASTY Anesthesia History Anesthesia History - senior principal: Anesthesia History - senior principal Hx Hospitalization No 10/04/24 13:47 Any Problems [...] take am of surgery PONV PONV - senior principal: PONV - senior principal Female Yes 10/04/24 13:47 HX of Motion [...] 10/11/24 15:05 Respiratory Assessment Respiratory Assessment - senior principal: Respiratory Tract Infection Hx - senior principal Hx Respiratory Tract Infection No 10/04/24 13:47 STOP Sleep Apnea STOP Sleep Apnea - senior principal: STOP Sleep Apnea - senior principal Hx Hypertension Yes: CONTROLLED WITH MED 10/04/24 [...] Tobacco Use History Tobacco Use History - senior principal: Tobacco Use History - senior principal Tobacco Use Smoking Status Never smoker 10/04/24 13:47 Hx Tobacco Use No 10/04/24 13:47 Years Smoking Packs Smoked per Day Smoking Cessation Date was within the last 15 years Hx Smoking Cessation Date Hx Smoking Cessation Counseling Hematologic Medial History Hematologic Hx - senior principal: 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 10/16/24 1051 > Date _ Ki Germain Signature: Date CC: ~ Signed [facility]07-28-2025 History and physical note [facility] Medical Records Department [address] [place] [address] History & Physical Exam 10/13/24 1655 MR#: [id number] Acct: [id number] Name: BERNICE HASSAN Rep #:[id number] : 1945 79 From: Nela CORNELIUS PCP: Dr. Dago Emery MD Status:REG S LA Location: [place] [address] History and Physical History and Physical Patient [...] LT Hip ORIF - (04/17/2014) JWG @ [facility] LT Leg - (2007) Knee Replacement RT - (09/23/2022) SAW RT TKR ROBOTIC AT [facility] Anesthesia Complications: None Assistive Devices: Glasses, Walker [...] ~* Signed [facility]07-25-2025 [facility]07-23-2025 [facility] [place] [address] OFFICE VISIT Date of Service: 10/11/24 1453 MR#: [id number] Acct: [id number] Name: BERNICE HASSAN Rep #: [id number] : 1945 From: Carolyn Hernandez ch JAVA J2EE APPLICATION DEVELOPER JAVA J2EE APPLICATION DEVELOPER-C Age/Sex: 79/F [place] [facility] Signed HPI Subjective Date of Service [...] episodes of overt bleeding, + bruises easily. [facility] Medical History (Updated 10/04/24 @ [...] never substance use type: does not use justice/yarsani: Taoism seatbelt use: always do you feel safe [...] the past year?: No 10/11/24 1522 h JAVA J2EE APPLICATION DEVELOPER JAVA J2EE APPLICATION DEVELOPER-C> Date _ Carolyn Ruvalcaba NP JAVA J2EE APPLICATION DEVELOPER-C Cosigner Signature: Date (if applicable) CC: ~ [facility]07-23-2025 Progress note Author Carolyn Ruvalcaba [facility] Note Date/Time October 11, 2024 3:22 pm [facility] [address] [address] OFFICE VISIT Date of Service: 10/11/24 1453 MR#: [id number] Acct: [id number] Name: BERNICE HASSAN Rep #: [id number] : 1945 From: Carolyn Hernandez JAVA J2EE APPLICATION DEVELOPER JAVA J2EE APPLICATION DEVELOPER-C Age/Sex: 79/F [place] [facility] Status: Signed HPI Subjective Date of Service [...] never substance use type: does not use justice/yarsani: Taoism seatbelt use: always do you feel safe [...] NP, NP-C> Date _ Carolyn Ruvalcaba NP JAVA J2EE APPLICATION DEVELOPER-C Cosigner Signature: Date (if applicable) CC: ~ [facility] [facility] Work Phone: 1(185) 388-648307-02-2025 Evaluation note* Diagnosis Onset Date Resolution Status [...] Anemia acute November 01, 2 025 2:50pm [facility] Work Phone: 1([phone]) 110-323307-02-2025 Evaluation note* Diagnosis Onset Date Resolution Status [...] Anemia acute November 01, 2 025 2:50pm [facility] Work Phone: 1(809) 466-279505-14-2025 Radiology Diagnostic study note [facility] Imaging Services [address] [place], [place] [address] Extremity Lower without Contra MR#: [id number] Acct: [id number] Name: BERNICE HASSAN Rep #: [id number] : 1945 F 79 From: Myron Newton MD PCP: Dr. Dago Emery MD Status: REG C LI Study:Extremity Lower without Contra Date of Exam: 08/01/24 Exam# [id number] Ordering Dr: Grayson Rodriguez MD PROCEDURE: EXTREMITY [...] left tibia without apparent complication. Reading Location: [facility] CC: Dr. Geo Rodriguez MD; Dr. Dago Emery MD ~ Medical Collections Specialist: Signed [facility]05-02-2025 Consult note Author Franklyn Lopez [facility] Note Date/Time November 01, 2024 4: 13pm [facility] Medical Records Department [address] [place] [address] Anesthesia Postop Eval I 11/01/241612 MR#: [id number] Acct: [id number] Name: BERNICE HASSAN Rep #:[id number] : 1945 79 From: Franklyn CHAMBERS PCP: Dr. Dago Emery MD Status:REG S DC Y Race: C Location: [place] [address] Anesthesia: Postop Eval I Current Vital Signs [...] CRNA Cosigner Signature: Date CC: ~ Signed [facility] Work Phone: [phone]) 152-156704-21-2025 Evaluation note* Diagnosis Onset Date Resolution Status Admit Date Essential thrombocythemia chronic July 10, 2024 12:43pm Myeloproliferative disorder chronic July 10, 2024 12:43pm Essential thrombocythemia chronic July 10, 2024 12:45pm Myeloproliferative disorder chronic July 10, 2024 12:45pm Educational circumstance resolved July 10, 2024 12:45pm Erythrocytosis resolved June 12:45pm Leukocytosis resolved July 10, 2024 12:45pm Thrombocytosis deleted June 12:45pm [facility] Work Phone: [phone]) 181-333404-21-2025 Evaluation note* Diagnosis Onset Date Resolution Status [...] 2:15pm Thrombocytosis deleted October 11, 2024 2:15pm [facility] Work Phone: [phone]) [phone] Evaluation note* Diagnosis Onset Date Resolution Status [...] 2024 1:14pm [facility] Work Phone: [phone]) [phone] Evaluation note* Diagnosis Onset Date Resolution Status [...] Anemia acute November 01, 2 025 2:50pm [facility] Work Phone: Consult note Author Avery Rod [facility] Note Date/Time November 01, 2024 4: 03pm [facility] Medical Records Department [address] [place] [address] Pre-Anesthesia Evaluation 11/01/24 1539 MR#: [id number] Acct: [id number] Name: BERNICE HASSAN Rep #:[id number] : 1945 79 From: Avery Crocker PCP: Dr. Dago Emery MD Status:REG S DC Y Race: C Location: [place] [address]- ASA Classification* ASA Classification ASA Classification: 3 [...] Procedure(s): EGD Anesthesia History Anesthesia History - senior principal: Anesthesia History - senior principal Hx Hospitalization Yes 11/01/24 15:07 Any Problems [...] take am of surgery PONV PONV - senior principal: PONV - senior principal Female Yes 11/01/24 15:07 HX of Motion [...] 11/01/24 15:07 Respiratory Assessment Respiratory Assessment - senior principal: Respiratory Tract Infection Hx - senior principal Hx Respiratory Tract Infection No 11/01/24 15:07 STOP Sleep Apnea STOP Sleep Apnea - senior principal: STOP Sleep Apnea - senior principal Hx Hypertension Yes 11/01/24 15:07 Hx Sleep [...] Tobacco Use History Tobacco Use History - senior principal: Tobacco Use History - senior principal Tobacco Use Smoking Status Never smoker 11/01/24 15:07 Hx Tobacco Use No 11/01/24 15:07 Years Smoking Packs Smoked per Day Smoking Cessation Date was within the last 15 years Hx Smoking Cessation Date Hx Smoking Cessation Counseling Hematologic Medial History Hematologic Hx - senior principal: Hematologic 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 11/01/24 1600 <Electronically signed by Avery Rod MD> Date _ Avery Rod MD Cosigner Signature: Date CC: ~ Signed [facility] Work Phone: Consult note Author Dinorah Headley [facility] Note Date/Time November 01, 2024 4: 50pm [facility] Medical Records Department [address] [place] [address] Anesthesia Postop Eval II 11/01/24 1633 MR#: [id number] Acct: [id number] Name: BERNICE HASSAN #:[id number] : 1945 79 From: Dinorah Headley CRNA PCP: Dr. Dago Emery MD Status:REG S DC Y Race: C Location: [address] Anesthesia Postop Eval I Sum Postop Eval Completion status Anesthesia document: Postop Eval 1 completed: Yes Anesthesia Postop Eval I Summary Anesthesia Postop Eval I Summary: Anesthesia Postop Eval I: Assessment Summary Airway patent Yes 11/01/24 16:13 LOG HAUL OPERATOR.[email or web address] Spontaneous unlabored Yes 11/01/24 16:13 LOG HAUL OPERATOR.JBLOU respirations Mental status Awake,Calm 11/01/24 16:13 LOG HAUL OPERATOR.JBLOU nausea No 11/01/24 16:13 LOG HAUL OPERATOR.JBLOU Vomiting No 11/01/24 16:13 LOG HAUL OPERATOR.JBLOU Anesthesia Postop Eval I: Fluid Summary Crystalloid volume administer 200 11/01/24 16:13 LOG HAUL OPERATOR.JBLOU (ml) Colloids volume administered ( ml) Blood Product volume administered (ml) Total IV fluid infused 200 11/01/24 16:13 LOG HAUL OPERATOR.JBLOU Anesthesia Postop Eval I: Summary Notes Anesthesia Complication No 11/01/24 16:13 LOG HAUL OPERATOR.JBLOU Anesthesia Complication Comment: Post-operative progress note Anesthesia: Postop Eval II Evaluation Mental status: Awake Pain Level: 0 nausea: No Vomiting: No 11/01/24 1633 <Electronically signed by Dinorah jarquin CRNA> Date _ Dinorah Headley CRNA Cosigner Signature: Date CC: ~ Signed [facility] Work Phone: Discharge summary Author Dr. Yanez [facility] April 12, 2022 10:08am Note Date/Time April 12, 2022 8 :45am [facility] Medical Records Department [facility] [place] [address] Emergency Department Summary 04/12/22 MR#: [id number] Acct: [id number] Name: BERNICE HASSAN Rep #:[id number] : 1945 76 From: Garret Yanez DO [...] he has a history of osteoarthritis. [facility] Medical History Anxiety Fracture of left [...] never substance use type: does not use justice/yarsani: Taoism seatbelt use: always do you feel safe [...] EST Reading Location ID and State: [address] [place] [address] , Service support , Discharge Plan Triage [...] your Primary Care Provider. Call [facility] ([phone]) or report to the closest Emergency Room. Call 911 if necessary. 04/12/22 1008 <Electronically signed by Garret Yanez DO> Cosigner Signature (if applicable): CC: Dr. Dago Emery MD ~ Signed [facility] Work Phone: Evaluation note* Diagnosis Onset Date Resolution Status Essential thrombocythemia ch ronic Myeloproliferative disorder chronic Essential thrombocythemia ch ronic Myeloproliferative disorder chronic Educational circumstance res olved Erythrocytosis resolved Leukocytosis resolved [facility] Work Phone: Evaluation note* Diagnosis Onset Date Resolution Status Essential thrombocythemia ch ronic Myeloproliferative disorder chronic Educational circumstance res olved Erythrocytosis resolved Leukocytosis resolved Essential thrombocythemia ch ronic Myeloproliferative disorder chronic [facility] Work Phone: Evaluation note* Diagnosis Onset Date Resolution Status BMI 33.0-33.9,adult acute Debility acute Status post total right knee replacement acute Essential thrombocythemia ch ronic Hyperlipidemia chronic Hypertension chronic Hypothyroidism chronic Essential thrombocythemia ch ronic Myeloproliferative disorder chronic Essential thrombocythemia ch ronic Myeloproliferative disorder chronic Educational circumstance res olved Erythrocytosis resolved Leukocytosis resolved [facility] Work Phone: History and physical note Author Pio Friend [facility] Note Date/Time November 01, 2024 3: 26pm [facility] Medical Records Department [address] [place] [address] History & Physical Exam 11/01/24 1523 MR#: [id number] Acct: [id number] Name: BERNICE HASSAN Rep #:[id number] : 1945 79 From: Pio Webb DO PCP: Dr. Dago Emery MD Status:REG S DC Location: [place] [address] HPI - General General Date of Admission: [...] part of recently but thelast 5 years. [facility] Medical History Cardiology follow-up encounter [...] never substance use type: does not use justice/yarsani: Taoism seatbelt use: always do you feel safe [...] Dago Emery MD; Pio Webb DO~ Signed [facility] Work Phone: Hospital Discharge instructionsAmbulatory Orders* 12 Lead EKG [[facility]] Location: None Selected [facility] Work Phone: Hospital Discharge instructionsAdditional Instructions Discharge 11/28/2024 to [facility], intermediate, private pay, part B therapies.[facility] Work Phone: Reason for referral (narrative)No reason for referral information availableW[facility] Work Phone: Chief Complaint and Reason [...] ADMISSION H&P EXAM November 28, 2024 2:04pm HALF-WAY LAB WORK November 29 5:00am ADMISSION H&P [...] No December 02, 2018 12:53pm Power of Poacher Operator No November 12:53pm Advance Directive Response Recorded Date/ Time Advance Directives Yes April 19, 2014 4:40pm Living Will No April 12 8:37am Power of Poacher Operator No April 12, 2022 8:37am Advance Directive Response Recorded Date/ Time Advance Directives Yes April 19, 2014 5:40pm Living Will No April 12 9:37am Power of Poacher Operator No April 12, 2022 9:37am Advance Directive Response Recorded Date/ Time Advance Directives Yes April 19, 2014 5:40pm Living Will Yes September 03, 2022 11:45am Power of Poacher Operator Yes September 03 11:45am Advance Directive Response Recorded Date/ Time Name of Medical Power of Poacher Operator Dinane Conley , health care attorney September 28, 2022 1:21pm Advance Directives Yes April 19, 2014 4:40pm Living Will Yes September 28, 2022 1:21pm Power of Poacher Operator Yes September 28 1:21pm Advance Directive Response Recorded Date/ Time Living Will No June 27, 2018 2:53pm Do you have a Healthcare Power of Poacher Operator? No June 27, 2018 2:53pm Advance Directives Yes April 19, 2014 5:40pm Advance Directive Response Recorded Date/ Time Living Will No June 27, 2018 2:53pm Do you have a Healthcare Power of Poacher Operator? No June 27, 2018 2:53pm Do you have a Healthcare Power of Poacher Operator? Yes October 16, 2024 8:13pm Advance Directives Yes April 19, 2014 5:40pm Advance Directive Response Recorded Date/ Time Living Will No June 27, 2018 2:53pm Do you have a Healthcare Pow er of Poacher Operator? No June 27, 2018 2:53pm Do you have a Healthcare Pow er of Poacher Operator? Yes October 23, 2024 3:05pm Name of Medical Power of Poacher Operator Lizzeth Matias, jon October 23, 2024 3:05pm Do you have a Healthcare Pow er of Poacher Operator? No November 01, 2024 3:07pm Do you have a Healthcare Pow er of Poacher Operator? Yes October 16, 2024 8:13pm Advance Directives Yes April 19, 2014 5:40pm Advance Directive Response Recorded Date/ Time Advance Directives Yes January 05, 2025 9:23am Living Will No June 27, 2018 2:53pm Do you have a Healthcare Pow er of Poacher Operator? No June 27, 2018 2:53pm Do you have a Healthcare Pow er of Poacher Operator? Yes October 23, 2024 3:05pm Name of Medical Power of Poacher Operator Lizzeth Matias, jon October 23, 2024 3:05pm Do you have a Healthcare Pow er of Poacher Operator? No November 01, 2024 3:07pm Do you have a Healthcare Pow er of Poacher Operator? Yes October 16, 2024 8:13pm Summary Purpose [...] Care Provider, Referring Provider Active Carolyn Ruvalcaba JAVA J2EE APPLICATION DEVELOPER, JAVA J2EE APPLICATION DEVELOPER-C Attending Provider Active Team Status: Inactive Member [...] 2024 End: July 10, 2024 Carolyn Ruvalcaba JAVA J2EE APPLICATION DEVELOPER, JAVA J2EE APPLICATION DEVELOPER-C Attending Provider Active Start: July 10, 2024 [...] 2024 End: July 10, 2024 Carolyn Ruvalcaba JAVA J2EE APPLICATION DEVELOPER, JAVA J2EE APPLICATION DEVELOPER-C Attending Provider Active Start: July 10, 2024 [...] 2024 End: October 11, 2024 Carolyn Ruvalcaba JAVA J2EE APPLICATION DEVELOPER, JAVA J2EE APPLICATION DEVELOPER-C Attending Provider Active Start: October 11, 2024 [...] Sta rt: October 18, 2024 Dr. Saulo Bullokc DO Other Provider Active Start: October 18, [...] Active Member Role/Relationship Status Dates Dr. Dago Eemry MD Primary Care Provider Active Start: October [...] 2024 End: October 11, 2024 Carolyn Ruvalcaba JAVA J2EE APPLICATION DEVELOPER, JAVA J2EE APPLICATION DEVELOPER-C Attending Provider Active Start: October 11, 2024 [...] 2024 End: October 11, 2024 Carolyn Ruvalcaba JAVA J2EE APPLICATION DEVELOPER, JAVA J2EE APPLICATION DEVELOPER-C Attending physician Active Start: October 11, 2024 [...] 18, 2024 End: October 21, 2024 Dr. Sofai Carvajal MD Nurse Practitioner Active Start: October [...] End: November 30, 2024 Fouzia Gaming NP, JAVA J2EE APPLICATION DEVELOPER-C Attending physician Active Start: November 30, 2024 End: November 30, 2024 Team Status: Inactive Member Role/Relationship Status Dates Dr. Dago Emery MD Primary care physician Active Start: December 05, 2024 End: December 05, 2024 Fouzia Gaming NP, JAVA J2EE APPLICATION DEVELOPER-C Attending physician Active Start: December 05, 2024 [...] End: December 13, 2024 Fouzia Gaming NP JAVA J2EE APPLICATION DEVELOPER-C Attending physician Active Start: December 13, 2024 [...] section and content) DATE CREATED AUTHOR 01/31/2025 [facility] FOR RECORDS PERTAINING TO PATIENTS WHO [...] BE BASED ON THE PRIMARY CLINICAL RECORDS. [email or web address] provides no warranty or guarantee of the accuracy or completeness of information in this document.
[2025-03-08 08:56] LABS: Differential Indicated SCAN CRITERIA MET; Hematocrit 29.4 % (37-47); Hemoglobin 9.4 g/dL (12.0-15.0); Immature Granulocytes Count 0.030 X10^3/uL (0.0-0.0); Mean Corp Hgb Conc 32.0 g/dL (32-36); Mean Corpuscular Volume 118.1 fL (81-99); Mean Platelet Vol. 10.9 fl (6.2-12.0); NRBC Flagged by Analyzer 0 % (0-5); POSITIVE MORPHOLOGY YES; Platelet Count 186 K/mm3 (150-450); RBC Distribution Width CV 16.4 % (11.6-14.6); RBC Distribution Width SD 72.1 fl (35.1-43.9); Red Blood Count 2.49 M/mm3 (4.2-5.4); White Blood Count 4.2 K/mm3 (4.4-11.0)
[2025-03-08 09:28] LABS: Anisocytosis 1+
== END ==
LOC: OLS.WHLTCC 05:00
PROVIDERS: PCP Family Medicine Geriatric Medicine; Visit Provider Internal Medicine
DX: S82.302D Unspecified fracture of lower end of left tibia, subsequent encounter for closed fracture with routine healing (principal); Z96.652 Presence of left artificial knee joint; M62.561 Muscle wasting and atrophy, not elsewhere classified, right lower leg; D69.6 Thrombocytopenia, unspecified
CPT/HCPCS: 85025

== ENCOUNTER → 2025-03-14 05:00 | Outpatient (REF) | payer MEDICARE, OTHER, SELFPAY ==
--- OUTSIDE RECORDS SUMMARY | 2025-03-14 04:13 | XMS RPT_ITS | CCD ---
Author Organization [facility] Care Team Providers Care Program Evaluation Consultant Name Role Phone Dr. Dago Emery Chi Primary Care Provider Rupert, Dr. Dago Nicole Referring Provider Herlinda, Dr. Heck Attending Provider Rupert, Dr. Dago Nicole Primary Care Provider Rupert, Dr. Dago Nicole Referring Provider Peg METAL FABRICATOR WELDER, METAL FABRICATOR WELDER-C Carolyn Attending Provider Rupert, Dr. Dago Nicole Primary Care Provider Rupert, Dr. Dago Nicole Referring Provider Herlinda, Dr. Heck Attending Provider Rupert COON, Dr. Dago Nicole Primary Care Provider Rupert COON, Dr. Dago Nicole Referring Provider Peg METAL FABRICATOR WELDER-C, Carolyn Attending Provider Herlinda COON, Dr. Heck [...] COON, Dr. Dago Nicole Referring Provider Peg METAL FABRICATOR WELDER-C, Carolyn Attending Provider Rupert COON, Dr. Dago Nicole Primary Care Physician Rupert COON, Dr. Dago Nicole Referring Provider Chanda COON, Dr. Jamil Attending Physician Peg METAL FABRICATOR WELDER-C, Carolyn Attending Physician Herlinda COON, Dr. Heck [...] Mckenna MD Attending Physician Unavail able Amberly METAL FABRICATOR WELDER-C, Fouzia Attending Physician Irvin Joe Attending Unavailabl e Rupert, Dago Chi Primary Care Unavailable Oleghe Irvin SARABIA Attending Unavailabl e Rupert, Dago Chi Primary Care Unavailable Oleghe Irvin SARABIA Attending Unavailabl e Rupert, Dago Chi Primary Care Unavailable Amberly METAL FABRICATOR WELDER, Fouzia Attending Unavailable Rupert, Dago Chi Primary [...] Unavailable Rupert, Dago Chi Referring Unavailable Amberly METAL FABRICATOR WELDER, Fouzia Attending Unavailable Rupert, Dago Chi Primary [...] Unavailable Rupert, Dago Chi Referring Unavailable Peg METAL FABRICATOR WELDER, Carolyn Attending Unavailable Rupert, Dago Chi Primary Care Unavailable Rupert, Dago Chi Referring Unavailable Rupert, Dago Chi Primary Care Unavailable Umang Pate Attending Unavailable Tickton METAL FABRICATOR WELDER, Fouzia Attending Unavailable Rupert, Dago Chi Primary [...] Rupert, Dago Chi Primary Care Unavailable Amberly METAL FABRICATOR WELDER, Fouzia Attending Unavailable Rupert, Dago Chi Primary Care Unavailable Omero Armas Attending Unavailable Rupert, Dago Chi Referring Unavailable Rupert, Dago Chi Primary Care Unavailable Peg METAL FABRICATOR WELDER, Carolyn Attending Unavailable Rupert, Dago Chi Referring Unavailable Saulo Bullock Consulting Unavailable Sofia Carvajal Attending Unavailable Sven, Geo Admitting Unavailable Sven, Geo Referring Unavailable Rupert, Dago Chi Primary Care Unavailable Carvajal Sofia Consulting Unavailable Sven, Geo Consulting Unavailable Friend, Pio Attending Unavailable Rupert, Dago Chi Primary Care Unavailable Rpuert, Dago Chi Admitting Unavailable Rupert, Dago Chi [...] dye] Propensity to adverse reactions 2 Unknown [facility] Comment on above: mouth to droop (16 sources) Penicillins Propensity to adverse reactions 2 Swelling [facility] (17 sources) Promethazine; Translations: [promethazine HCl] Drug Allergy 2 Other [facility] Comment on above: heightens engery (zi ng) (16 sources) Tetanus Vaccines and Toxoid Propensity to adverse reactions 2 NEEDS FOLLOW-UP [facility] (1 source) Penicillins Drug allergy (disorder) 5 [facility] Repository (1 source) Tetanus Vaccines and Toxoid Drug allergy (disorder) 5 [facility] Medications Current Medications Medication Drug Class(es) [...] docusate sodium 50 mg / adria osides, custodial 8.6 mg oral tablet (20 sources) Start: [...] hip requiring operative repair polyethylene glycol 3350 83522 mg powder for oral solution (7 sources) [...] W/Diff, Automatedon 11-0 Absolute Neut Normal 2.0-7.7 [facility] Comment on above: Result Comment: OK T O CANCEL PER DR PATE Performed By: #### L 500.4050, L100.0100 ####[facility] [id number] [place], [place], [id number] HCT Normal 37-47 [facility] Comment on above: Result Comment: OK T O CANCEL PER DR PATE Performed By: #### L 500.4050, L100.0100 ####[facility] [id number] [place], [address] HGB Normal 12.0-15.0 [facility] Comment on above: Result Comment: OK T O CANCEL PER DR PATE Performed By: #### L 500.4050, L100.0100 ####[facility] [address] [place], [address] MCH Normal 27.0-32.0 [facility] Comment on above: Result Comment: OK T O CANCEL PER DR PATE Performed By: #### L 500.4050, L100.0100 ####[facility] [id number] [place], [address] MCHC Normal 32-36 [facility] Comment on above: Result Comment: OK T O CANCEL PER DR PATE Performed By: #### L 500.4050, L100.0100 ####[facility] [address] [place], [address] MCV Normal 81-99 [facility] Comment on above: Result Comment: OK T O CANCEL PER DR PATE Performed By: #### L 500.4050, L100.0100 ####[facility] [id number] [place], [address] NEUT% Normal 47-70 [facility] Comment on above: Result Comment: OK T O CANCEL PER DR PATE Performed By: #### L 500.4050, L100.0100 ####[facility] [address] [place], [address] PLT Normal 150-450 [facility] Comment on above: Result Comment: OK T O CANCEL PER DR PATE Performed By: #### L 500.4050, L100.0100 ####[facility] [address] [place], [address] RBC Normal 4.2-5.4 [facility] Comment on above: Result Comment: OK T O CANCEL PER DR PATE Performed By: #### L 500.4050, L100.0100 ####[facility] [address] [place], [address] RDW CV Normal 11.6-14.6 [facility] Comment on above: Result Comment: OK T O CANCEL PER DR PATE Performed By: #### L 500.4050, L100.0100 ####[facility] [address] [place], [address] RDW SD Normal 35.1-43.9 [facility] Comment on above: Result Comment: OK T O CANCEL PER DR PATE Performed By: #### L 500.4050, L100.0100 ####[facility] [address] [place], [address] WBC Normal 4.4-11.0 [facility] Comment on above: Result Comment: OK T O CANCEL PER DR PATE Performed By: #### L 500.4050, L100.0100 ####[facility] [address] [place], [address] Comprehensive Metabolic Prof ilon 01-24-2025 ALB Normal 3.4-4.8 [facility] Comment on above: Result Comment: OK T O CANCEL PER DR PATE Performed By: #### L 500.4050, L100.0100 ####[facility] [address] [place], [address] ALK PHOS Normal 35-104 [facility] Comment on above: Result Comment: OK T O CANCEL PER DR PATE Performed By: #### L 500.4050, L100.0100 ####[facility] [address] [place], [address] ALT Normal <=34 [facility] Comment on above: Result Comment: OK T O CANCEL PER DR PATE Performed By: #### L 500.4050, L100.0100 ####[facility] [address] [place], [address] AST Normal <=31 [facility] Comment on above: Result Comment: OK T O CANCEL PER DR PATE Performed By: #### L 500.4050, L100.0100 ####[facility] [address] [place], [address] BUN Normal 4-19 [facility] Comment on above: Result Comment: OK T O CANCEL PER DR PATE Performed By: #### L 500.4050, L100.0100 ####[facility] [address] [place], [address] BUN/CRE Normal 10-20 [facility] Comment on above: Result Comment: OK T O CANCEL PER DR PATE Performed By: #### L 500.4050, L100.0100 ####[facility] [address] [place], [address] Calcium Normal 7.6-11.0 [facility] Comment on above: Result Comment: OK T O CANCEL PER DR PATE Performed By: #### L 500.4050, L100.0100 ####[facility] [address] [place], [address] CL Normal 98-108 [facility] Comment on above: Result Comment: OK T O CANCEL PER DR PATE Performed By: #### L 500.4050, L100.0100 ####[facility] [address] [place], [address] CO2 Normal 21.0-32.0 [facility] Comment on above: Result Comment: OK T O CANCEL PER DR PATE Performed By: #### L 500.4050, L100.0100 ####[facility] [address] [place], [address] CREAT,SERUM Normal 0.70-1.20 [facility] Comment on above: Result Comment: OK T O CANCEL PER DR PATE Performed By: #### L 500.4050, L100.0100 ####[facility] [address] [place], [address] eGFR Normal >60 [facility] Comment on above: Result Comment: OK T O CANCEL PER DR PATE Performed By: #### L 500.4050, L100.0100 ####[facility] [address] [place], [address] GAP Normal 5-15 [facility] Comment on above: Result Comment: OK T O CANCEL PER DR PATE Performed By: #### L 500.4050, L100.0100 ####[facility] [address] [place], [address] GLU Normal 70-99 [facility] Comment on above: Result Comment: OK T O CANCEL PER DR PATE Performed By: #### L 500.4050, L100.0100 ####[facility] [address] [place], [address] Potassium Normal 3.3-5.1 [facility] Comment on above: Result Comment: OK T O CANCEL PER DR PATE Performed By: #### L 500.4050, L100.0100 ####[facility] [address] [place], [address] T BILI Normal 0.00-1.30 [facility] Comment on above: Result Comment: OK T O CANCEL PER DR PATE Performed By: #### L 500.4050, L100.0100 ####[facility] [address] [place], [address] T PROT Normal 5.9-8.4 [facility] Comment on above: Result Comment: OK T O CANCEL PER DR PATE Performed By: #### L 500.4050, L100.0100 ####[facility] [address] [place], [address] Comprehensive Metabolic Profil Normal 133-145 [facility] Comment on above: Result Comment: OK T O CANCEL PER DR ISCKARUS Performed By: #### L 500.4050, L100.0100 ####[facility] [address] [place], [address] Oncology Visit Reporton 11-0 Oncology Visit Report Normal [facility] Absolute lymphocyte countOrd ered By: Irvin Mckenna on 01-10-2025 Lymphocytes Auto (Unsp spec) [#/Vol] 1.16 10*3/uL 0.83-4.51 [facility] Anion gap in Serum or Plasma Ordered By: Irvin Mckenna on 01-10-2025 Anion gap [Moles/Vol] 9 mmol/L 5- [facility] Automated lymphocyte count a s percentage of total leukocytesOrdered By: Irvin Mckenna on 01-10-2025 Lymphocytes/100 WBC Auto (Unsp spec) 34.3 % - [facility] BUN/creatinine ratioOrdered By: Irvin Mckenna on 01-10-2025 Urea nitrogen/Creatinine [Mass ratio] 20.4 mg/mg High 10- [facility] Basophil percentageOrdered B y: Irvin Mckenna on 01-10-2025 Basophils/100 WBC (Bld) 0.6 % 0-1 [facility] Carbon dioxide, total [Moles /volume] in Central venous bloodOrdered By: Irvin Mckenna on 01-10-2025 CO2 [Moles/Vol] 23.7 mmol/L 21.0-32.0 [facility] Chloride assayOrdered By: Layo Mckenna on 01-10-2025 Chloride [Moles/Vol] 104 mmol/L 98-108 [facility] Eosinophil percentageOrdered By: froywaltonjenni Mckenna on 01-10-2025 Eosinophils/100 WBC (Bld) 2.1 % 0-5 [facility] Erythrocyte distribution wid th ratioOrdered By: Irvin Mckenna on 01-10-2025 Erythrocyte distribution width (RBC) [Ratio] 14.9 % High 11.6-14.6 [facility] Erythrocyte distribution wid th standard deviationOrdered By: Irvin Mckenna on 01-10-2025 Erythrocyte distribution width (RBC) [Ratio] 61.7 fl High 35.1-43.9 [facility] Glomerular filtration rate ( GFR) estimation/1.73 sq m using serum, plasma, or whole bOrdered By: Irvin Mckenna on 01-10-2025 GFR/1.73 sq M.predicted among non-blacks MDRD (S/P/Bld) [Vol rate/Area] 76 mL/min/{1.73_m2} >60 [facility] Hematocrit Auto (Bld) [Volum e fraction]Ordered By: Irvin Mckenna on 01-10-2025 Hematocrit (Bld) [Volume fraction] 30.0 % Low 37-47 [facility] Hemoglobin measurementOrdere d By: Irvin Mckenna on 01-10-2025 Hemoglobin (Bld) [Mass/Vol] 9.9 g/dL Low 12.0-15.0 [facility] Immature granulocytes/100 WB C Auto (Bld)Ordered By: Irvin Mckenna on 01-10-2025 Immature granulocytes/100 WBC (Bld) 0.600 % 0.0-0.9 [facility] MCV (mean corpuscular volume ) determinationOrdered By: Irvin Mckenna on 01-10-2025 MCV (RBC) [Entitic vol] 112.8 fL High 81-99 [facility] Mean corpuscular hemoglobin (MCH) determinationOrdered By: beatris Mckenna on 01-10-2025 MCH (RBC) [Entitic mass] 37.2 pg High 27.0-32.0 [facility] Monocyte percentageOrdered B y: Irvin Mckenna on 01-10-2025 Monocytes/100 WBC (Bld) 6.2 % 0-10 [facility] Neutrophil percentageOrdered By: Irvin Mckenna on 01-10-2025 Neutrophils/100 WBC (Bld) 56.2 % 47-70 [facility] Platelet countOrdered By: Layo Mckenna on 01-10-2025 Platelets (Bld) [#/Vol] 158 10*3/uL 150-450 [facility] Potassium measurement (mass/ volume)Ordered By: Irvin Mckenna on 01-10-2025 Potassium (Unsp spec) [Mass/Vol] 3.8 mmol/L 3.3-5.1 [facility] RBC Auto (Bld) [#/Vol]Ordere d By: Irvin Mckenna on 01-10-2025 RBC (Bld) [#/Vol] 2.66 10*6/uL Low 4.2-5.4 [facility] Serum creatinine measurement (mass/volume)Ordered By: Anupamcandicejenni Mezajerilynelier on 01-10-2025 Creatinine [Mass/Vol] 0.78 mg/dL 0.70-1.20 [facility] Serum glucose measurement (m ass/volume)Ordered By: Irvin Mezajerilynelier on 01-10-2025 Glucose [Mass/Vol] 82 mg/dL 70-99 [facility] Serum or plasma calcium niels urement (mass/volume)Ordered By: Irvin Mezajerilynelier on 01-10-2025 Calcium [Mass/Vol] 8.9 mg/dL 7.6-11.0 [facility] Serum or plasma urea nitroge n measurement (mass/volume)Ordered By: Layofroycandicejenni Mezajerilynelier on 01-10-2025 Urea nitrogen [Mass/Vol] 16 mg/dL 4-19 [facility] Sodium levelOrdered By: Anupam hearn Derrickjerilynelier on 01-10-2025 Sodium [Moles/Vol] 137 mmol/L 133-145 [facility] White blood cell (WBC) count Ordered By: Layofroycandicejenni Mezajerilynelier on 01-10-2025 WBC (Bld) [#/Vol] 3.4 10*3/uL Low 4.4-11.0 [facility] Absolute lymphocyte countOrd ered By: Layofroycandicejenni Mezajerilynelier on 01-03-2025 Lymphocytes Auto (Unsp spec) [#/Vol] 1.09 10*3/uL 0.83-4.51 [facility] Anion gap in Serum or Plasma Ordered By: Layobeatris Mezajerilynelier on 01-03-2025 Anion gap [Moles/Vol] 11 mmol/L 5-15 [facility] Automated lymphocyte count a s percentage of total leukocytesOrdered By: Irvin Mezajerilynelier on 01-03-2025 Lymphocytes/100 WBC Auto (Unsp spec) 29.4 % 19-41 [facility] BUN/creatinine ratioOrdered By: Layofroycandicejenni Mezajerilynelier on 01-03-2025 Urea nitrogen/Creatinine [Mass ratio] 18.6 mg/mg 10-20 [facility] Basophil percentageOrdered B y: Anupamcandicejenni Mezajerilynelier on 01-03-2025 Basophils/100 WBC (Bld) 0.5 % 0-1 [facility] Carbon dioxide, total [Moles /volume] in Central venous bloodOrdered By: beatris Mckenna on 01-03-2025 CO2 [Moles/Vol] 22.3 mmol/L 21.0-32.0 [facility] Chloride assayOrdered By: Layo froynadiya Mckenna on 01-03-2025 Chloride [Moles/Vol] 103 mmol/L 98-108 [facility] Eosinophil percentageOrdered By: Irvin Mckenna on 01-03-2025 Eosinophils/100 WBC (Bld) 1.6 % 0-5 [facility] Erythrocyte distribution wid th ratioOrdered By: froycandicejenni Mckenna on 01-03-2025 Erythrocyte distribution width (RBC) [Ratio] 14.7 % High 11.6-14.6 [facility] Erythrocyte distribution wid th standard deviationOrdered By: beatris Mezajerilynelier on 01-03-2025 Erythrocyte distribution width (RBC) [Ratio] 61.6 fl High 35.1-43.9 [facility] Glomerular filtration rate ( GFR) estimation/1.73 sq m using serum, plasma, or whole bOrdered By: Irvin Mckenna on 01-03-2025 GFR/1.73 sq M.predicted among non-blacks MDRD (S/P/Bld) [Vol rate/Area] 57 mL/min/{1.73_m2} Low >60 [facility] Hematocrit Auto (Bld) [Volum e fraction]Ordered By: Irvin Mckenna on 01-03-2025 Hematocrit (Bld) [Volume fraction] 30.5 % Low 37-47 [facility] Hemoglobin measurementOrdere d By: Irvin Mckenna on 01-03-2025 Hemoglobin (Bld) [Mass/Vol] 10.1 g/dL Low 12.0-15.0 [facility] Immature granulocytes/100 WB C Auto (Bld)Ordered By: Layofroynadiya Derrickjerilynelier on 01-03-2025 Immature granulocytes/100 WBC (Bld) 0.500 % 0.0-0.9 [facility] MCV (mean corpuscular volume ) determinationOrdered By: Layobeatris Mezajerilynelier on 01-03-2025 MCV (RBC) [Entitic vol] 114.2 fL High 81-99 [facility] Mean corpuscular hemoglobin (MCH) determinationOrdered By: Layofroycandicejenni Mezajerilynelier on 01-03-2025 MCH (RBC) [Entitic mass] 37.8 pg High 27.0-32.0 [facility] Monocyte percentageOrdered B y: Layofroycandicejenni Mezajerilynelier on 01-03-2025 Monocytes/100 WBC (Bld) 8.6 % 0-10 [facility] Neutrophil percentageOrdered By: Anupamcandicejenni Mezajerilynelier on 01-03-2025 Neutrophils/100 WBC (Bld) 59.4 % 47-70 [facility] Platelet countOrdered By: Layo spear Derrickjerilynelier on 01-03-2025 Platelets (Bld) [#/Vol] 200 10*3/uL 150-450 [facility] Potassium measurement (mass/ volume)Ordered By: Layobeatris Mezajerilynelier on 01-03-2025 Potassium (Unsp spec) [Mass/Vol] 3.9 mmol/L 3.3-5.1 [facility] RBC Auto (Bld) [#/Vol]Ordere d By: Irvin Derrickjerilynelier on 01-03-2025 RBC (Bld) [#/Vol] 2.67 10*6/uL Low 4.2-5.4 [facility] Serum creatinine measurement (mass/volume)Ordered By: Irvin Mckenna on 01-03-2025 Creatinine [Mass/Vol] 0.99 mg/dL 0.70-1.20 [facility] Serum glucose measurement (m ass/volume)Ordered By: Irvin Mckenna on 01-03-2025 Glucose [Mass/Vol] 81 mg/dL 70-99 [facility] Serum or plasma calcium niels urement (mass/volume)Ordered By: Irvin Mckenna on 01-03-2025 Calcium [Mass/Vol] 9.4 mg/dL 7.6-11.0 [facility] Serum or plasma urea nitroge n measurement (mass/volume)Ordered By: Irvin Mckenna on 01-03-2025 Urea nitrogen [Mass/Vol] 19 mg/dL 4-19 [facility] Sodium levelOrdered By: Anupam nadiya Bala on 01-03-2025 Sodium [Moles/Vol] 136 mmol/L 133-145 [facility] White blood cell (WBC) count Ordered By: Irvin Mckenna on 01-03-2025 WBC (Bld) [#/Vol] 3.7 10*3/uL Low 4.4-11.0 [facility] Absolute lymphocyte countOrd ered By: Irvin Mckenna on 12-28-2024 Lymphocytes Auto (Unsp spec) [#/Vol] 1.22 10*3/uL 0.83-4.51 [facility] Anion gap in Serum or Plasma Ordered By: Irvin Mckenna on 12-28-2024 Anion gap [Moles/Vol] 9 mmol/L - [facility] Automated lymphocyte count a s percentage of total leukocytesOrdered By: Irvin Mckenna on 12-28-2024 Lymphocytes/100 WBC Auto (Unsp spec) 35.5 % 19-41 [facility] BUN/creatinine ratioOrdered By: Irvin Mckenna on 12-28-2024 Urea nitrogen/Creatinine [Mass ratio] 18.4 mg/mg 10-20 [facility] Basophil percentageOrdered B y: Irvin Mckenna on 12-28-2024 Basophils/100 WBC (Bld) 0.9 % 0-1 [facility] Blood manual differential co mment interpretation (narrative result)Ordered By: Irvin Mckenna on 12-28-2024 Manual differential comment Jack (Bld) [Interp] SCANNED [facility] Blood stomatocytes detection by light microscopyOrdered By: Irvin Mckenna on 12-28-2024 Stomatocytes LM Ql (Bld) RARE [facility] Carbon dioxide, total [Moles /volume] in Central venous bloodOrdered By: Irvin Mckenna on 12-28-2024 CO2 [Moles/Vol] 22.7 mmol/L 21.0-32.0 [facility] Chloride assayOrdered By: Layo Mckenna on 12-28-2024 Chloride [Moles/Vol] 104 mmol/L 98-108 [facility] Eosinophil percentageOrdered By: Irvin Mckenna on 12-28-2024 Eosinophils/100 WBC (Bld) 1.2 % 0-5 [facility] Erythrocyte distribution wid th ratioOrdered By: Irvin Mckenna on 12-28-2024 Erythrocyte distribution width (RBC) [Ratio] 15.2 % High 11.6-14.6 [facility] Erythrocyte distribution wid th standard deviationOrdered By: Irvin Mckenna on 12-28-2024 Erythrocyte distribution width (RBC) [Ratio] 65.6 fl High 35.1-43.9 [facility] Glomerular filtration rate ( GFR) estimation/1.73 sq m using serum, plasma, or whole bOrdered By: Irvin Mckenna on 12-28-2024 GFR/1.73 sq M.predicted among non-blacks MDRD (S/P/Bld) [Vol rate/Area] 42 mL/min/{1.73_m2} Low >60 [facility] Hematocrit Auto (Bld) [Volum e fraction]Ordered By: Irvin Mckenna on 12-28-2024 Hematocrit (Bld) [Volume fraction] 30.1 % Low 37-47 [facility] Hemoglobin measurementOrdere d By: Irvin Mckenna on 12-28-2024 Hemoglobin (Bld) [Mass/Vol] 9.7 g/dL Low 12.0-15.0 [facility] Immature granulocytes/100 WB C Auto (Bld)Ordered By: Irvin Mckenna on 12-28-2024 Immature granulocytes/100 WBC (Bld) 0.600 % 0.0-0.9 [facility] MCV (mean corpuscular volume ) determinationOrdered By: Irvin Mckenna on 12-28-2024 MCV (RBC) [Entitic vol] 117.1 fL High 81-99 [facility] Mean corpuscular hemoglobin (MCH) determinationOrdered By: Irvin Mckenna on 12-28-2024 MCH (RBC) [Entitic mass] 37.7 pg High 27.0-32.0 [facility] Monocyte percentageOrdered B y: Irvin Mckenna on 12-28-2024 Monocytes/100 WBC (Bld) 11.3 % High 0-10 [facility] Neutrophil percentageOrdered By: Irvin Mckenna on 12-28-2024 Neutrophils/100 WBC (Bld) 50.5 % 47-70 [facility] Platelet countOrdered By: Layo Mckenna on 12-28-2024 Platelets (Bld) [#/Vol] 233 10*3/uL 150-450 [facility] Potassium measurement (mass/ volume)Ordered By: Irvin Mceknna on 12-28-2024 Potassium (Unsp spec) [Mass/Vol] 4.7 mmol/L 3.3-5.1 [facility] RBC Auto (Bld) [#/Vol]Ordere d By: Irvin Mckenna on 12-28-2024 RBC (Bld) [#/Vol] 2.57 10*6/uL Low 4.2-5.4 [facility] Serum creatinine measurement (mass/volume)Ordered By: Irvin Mckenna on 12-28-2024 Creatinine [Mass/Vol] 1.29 mg/dL High 0.70-1.20 [facility] Serum glucose measurement (m ass/volume)Ordered By: Irvin Mckenna on 12-28-2024 Glucose [Mass/Vol] 82 mg/dL 70-99 [facility] Serum or plasma calcium niels urement (mass/volume)Ordered By: Irvin Mckenna on 12-28-2024 Calcium [Mass/Vol] 9.0 mg/dL 7.6-11.0 [facility] Serum or plasma urea nitroge n measurement (mass/volume)Ordered By: Irvin Mckenna on 12-28-2024 Urea nitrogen [Mass/Vol] 24 mg/dL High 4-19 [facility] Sodium levelOrdered By: Anupam nadiya Bala on 12-28-2024 Sodium [Moles/Vol] 136 mmol/L 133-145 [facility] White blood cell (WBC) count Ordered By: Irvin Mckenna on 12-28-2024 WBC (Bld) [#/Vol] 3.4 10*3/uL Low 4.4-11.0 [facility] Absolute lymphocyte countOrd ered By: Irvin Mckenna on 12-20-2024 Lymphocytes Auto (Unsp spec) [#/Vol] 0.83 10*3/uL 0.83-4.51 [facility] Anion gap in Serum or Plasma Ordered By: Irvin Mckenna on 12-20-2024 Anion gap [Moles/Vol] 11 mmol/L 5-15 [facility] Automated lymphocyte count a s percentage of total leukocytesOrdered By: Irvin Mckenna on 12-20-2024 Lymphocytes/100 WBC Auto (Unsp spec) 19.3 % 19-41 [facility] BUN/creatinine ratioOrdered By: Irvin Mckenna on 12-20-2024 Urea nitrogen/Creatinine [Mass ratio] 17.8 mg/mg 10-20 [facility] Basophil percentageOrdered B y: Irvin Mckenna on 12-20-2024 Basophils/100 WBC (Bld) 0.5 % 0-1 [facility] Carbon dioxide, total [Moles /volume] in Central venous bloodOrdered By: Irvin Mckenna on 12-20-2024 CO2 [Moles/Vol] 20.7 mmol/L Low 21.0-32.0 [facility] Chloride assayOrdered By: Layo Mckenna on 12-20-2024 Chloride [Moles/Vol] 104 mmol/L 98-108 [facility] Eosinophil percentageOrdered By: Irvin Mckenna on 12-20-2024 Eosinophils/100 WBC (Bld) 1.2 % 0-5 [facility] Erythrocyte distribution wid th ratioOrdered By: Irvin Mckenna on 12-20-2024 Erythrocyte distribution width (RBC) [Ratio] 15.6 % High 11.6-14.6 [facility] Erythrocyte distribution wid th standard deviationOrdered By: Irvin Mckenna on 12-20-2024 Erythrocyte distribution width (RBC) [Ratio] 66.5 fl High 35.1-43.9 [facility] Glomerular filtration rate ( GFR) estimation/1.73 sq m using serum, plasma, or whole bOrdered By: Irvin Mckenna on 12-20-2024 GFR/1.73 sq M.predicted among non-blacks MDRD (S/P/Bld) [Vol rate/Area] 58 mL/min/{1.73_m2} Low >60 [facility] Hematocrit Auto (Bld) [Volum e fraction]Ordered By: Irvin Mckenna on 12-20-2024 Hematocrit (Bld) [Volume fraction] 28.0 % Low 37-47 [facility] Hemoglobin measurementOrdere d By: Irvin Mckenna on 12-20-2024 Hemoglobin (Bld) [Mass/Vol] 9.1 g/dL Low 12.0-15.0 [facility] Immature granulocytes/100 WB C Auto (Bld)Ordered By: Irvin Mckenna on 12-20-2024 Immature granulocytes/100 WBC (Bld) 0.500 % 0.0-0.9 [facility] MCV (mean corpuscular volume ) determinationOrdered By: Irvin Mckenna on 12-20-2024 MCV (RBC) [Entitic vol] 116.2 fL High 81-99 [facility] Mean corpuscular hemoglobin (MCH) determinationOrdered By: Irvin Mckenna on 12-20-2024 MCH (RBC) [Entitic mass] 37.8 pg High 27.0-32.0 [facility] Monocyte percentageOrdered B y: Irvin Mckenna on 12-20-2024 Monocytes/100 WBC (Bld) 9.1 % 0-10 [facility] Neutrophil percentageOrdered By: Irvin Mckenna on 12-20-2024 Neutrophils/100 WBC (Bld) 69.4 % 47-70 [facility] No Panel InformationOrdered By: Irvin Walkere on 12-20-2024 1+ [facility] Platelet countOrdered By: Layo beatris Derrickjerilynelier on 12-20-2024 Platelets (Bld) [#/Vol] 281 10*3/uL 150-450 [facility] Potassium measurement (mass/ volume)Ordered By: Anupamcandicejenni Mckenna on 12-20-2024 Potassium (Unsp spec) [Mass/Vol] 4.3 mmol/L 3.3-5.1 [facility] RBC Auto (Bld) [#/Vol]Ordere d By: Anupamcandicejenni Mckenna on 12-20-2024 RBC (Bld) [#/Vol] 2.41 10*6/uL Low 4.2-5.4 [facility] Serum creatinine measurement (mass/volume)Ordered By: Anupamcandicejenni Mckenna on 12-20-2024 Creatinine [Mass/Vol] 0.98 mg/dL 0.70-1.20 [facility] Serum glucose measurement (m ass/volume)Ordered By: Irvin Mckenna on 12-20-2024 Glucose [Mass/Vol] 80 mg/dL 70-99 [facility] Serum or plasma calcium niels urement (mass/volume)Ordered By: Irvin Mckenan on 12-20-2024 Calcium [Mass/Vol] 8.9 mg/dL 7.6-11.0 [facility] Serum or plasma urea nitroge n measurement (mass/volume)Ordered By: Irvin Mckenna on 12-20-2024 Urea nitrogen [Mass/Vol] 18 mg/dL 4-19 [facility] Sodium levelOrdered By: Anupam hearn Bala on 12-20-2024 Sodium [Moles/Vol] 135 mmol/L 133-145 [facility] White blood cell (WBC) count Ordered By: Irvin Mckenna on 12-20-2024 WBC (Bld) [#/Vol] 4.3 10*3/uL Low 4.4-11.0 [facility] Absolute lymphocyte countOrd ered By: Irvin Mckenna on 12-13-2024 Lymphocytes Auto (Unsp spec) [#/Vol] 0.72 10*3/uL Low 0.83-4.51 [facility] Anion gap in Serum or Plasma Ordered By: Irvin Mckenna on 12-13-2024 Anion gap [Moles/Vol] 11 mmol/L 5-15 [facility] Automated lymphocyte count a s percentage of total leukocytesOrdered By: Irvin Mckenna on 12-13-2024 Lymphocytes/100 WBC Auto (Unsp spec) 17.1 % Low 19-41 [facility] BUN/creatinine ratioOrdered By: froywaltonjenni Mckenna on 12-13-2024 Urea nitrogen/Creatinine [Mass ratio] 18.2 mg/mg 10-20 [facility] Basophil percentageOrdered B y: Irvin Mckenna on 12-13-2024 Basophils/100 WBC (Bld) 0.5 % 0-1 [facility] Carbon dioxide, total [Moles /volume] in Central venous bloodOrdered By: Anupamwaltonjenni Mckenna on 12-13-2024 CO2 [Moles/Vol] 21.8 mmol/L 21.0-32.0 [facility] Chloride assayOrdered By: Layo froynadiya Mckenna on 12-13-2024 Chloride [Moles/Vol] 101 mmol/L 98-108 [facility] Eosinophil percentageOrdered By: froywaltonjenni Mckenna on 12-13-2024 Eosinophils/100 WBC (Bld) 0.7 % 0-5 [facility] Erythrocyte distribution wid th ratioOrdered By: Irvin Mckenna on 12-13-2024 Erythrocyte distribution width (RBC) [Ratio] 15.6 % High 11.6-14.6 [facility] Erythrocyte distribution wid th standard deviationOrdered By: froywaltonjenni Mckenna on 12-13-2024 Erythrocyte distribution width (RBC) [Ratio] 67.1 fl High 35.1-43.9 [facility] Glomerular filtration rate ( GFR) estimation/1.73 sq m using serum, plasma, or whole bOrdered By: Irvin Mckenna on 12-13-2024 GFR/1.73 sq M.predicted among non-blacks MDRD (S/P/Bld) [Vol rate/Area] 66 mL/min/{1.73_m2} >60 [facility] Hematocrit Auto (Bld) [Volum e fraction]Ordered By: Irvin Mezajerilynelier on 12-13-2024 Hematocrit (Bld) [Volume fraction] 29.1 % Low 37-47 [facility] Hemoglobin measurementOrdere d By: Layofroynadiya Derrickmag on 12-13-2024 Hemoglobin (Bld) [Mass/Vol] 9.8 g/dL Low 12.0-15.0 [facility] Immature granulocytes/100 WB C Auto (Bld)Ordered By: Layofroycandicejenni Mezajerilynelier on 12-13-2024 Immature granulocytes/100 WBC (Bld) 0.500 % 0.0-0.9 [facility] MCV (mean corpuscular volume ) determinationOrdered By: Irvin Mezajerilynelier on 12-13-2024 MCV (RBC) [Entitic vol] 115.5 fL High 81-99 [facility] Mean corpuscular hemoglobin (MCH) determinationOrdered By: Layobeatris Mezajerilynelier on 12-13-2024 MCH (RBC) [Entitic mass] 38.9 pg High 27.0-32.0 [facility] Monocyte percentageOrdered B y: Irvin Derrickmag on 12-13-2024 Monocytes/100 WBC (Bld) 12.8 % High 0-10 [facility] Neutrophil percentageOrdered By: Layofroynadiya Derrickmag on 12-13-2024 Neutrophils/100 WBC (Bld) 68.4 % 47-70 [facility] No Panel InformationOrdered By: Anupamcandicejenni Mezajerilynelier on 12-13-2024 1+ [facility] Platelet countOrdered By: Layo beatris Derrickjerilynelier on 12-13-2024 Platelets (Bld) [#/Vol] 233 10*3/uL 150-450 [facility] Potassium measurement (mass/ volume)Ordered By: Layofroycandicejenni Mezajerilynelier on 12-13-2024 Potassium (Unsp spec) [Mass/Vol] 4.0 mmol/L 3.3-5.1 [facility] RBC Auto (Bld) [#/Vol]Ordere d By: Anupamcandicejenni Mezajerilynelier on 12-13-2024 RBC (Bld) [#/Vol] 2.52 10*6/uL Low 4.2-5.4 [facility] Serum creatinine measurement (mass/volume)Ordered By: Irvin Mckenna on 12-13-2024 Creatinine [Mass/Vol] 0.88 mg/dL 0.70-1.20 [facility] Serum glucose measurement (m ass/volume)Ordered By: Layofroynadiya Derrickmag on 12-13-2024 Glucose [Mass/Vol] 93 mg/dL 70-99 [facility] Serum or plasma calcium niels urement (mass/volume)Ordered By: Irvin Mckenna on 12-13-2024 Calcium [Mass/Vol] 9.0 mg/dL 7.6-11.0 [facility] Serum or plasma urea nitroge n measurement (mass/volume)Ordered By: Irvin Mckenna on 12-13-2024 Urea nitrogen [Mass/Vol] 16 mg/dL 4-19 [facility] Sodium levelOrdered By: Anupam Mckenna on 12-13-2024 Sodium [Moles/Vol] 134 mmol/L 133-145 [facility] White blood cell (WBC) count Ordered By: Irvin Mckenna on 12-13-2024 WBC (Bld) [#/Vol] 4.2 10*3/uL Low 4.4-11.0 [facility] Potassium measurement (mass/ volume)Ordered By: Irvin Mckenna on 12-08-2024 Potassium (Unsp spec) [Mass/Vol] 3.9 mmol/L 3.3-5.1 [facility] Absolute lymphocyte countOrd ered By: Irvin Mckenna on 12-06-2024 Lymphocytes Auto (Unsp spec) [#/Vol] 0.86 10*3/uL 0.83-4.51 [facility] Anion gap in Serum or Plasma Ordered By: Irvin Mckenna on 12-06-2024 Anion gap [Moles/Vol] 13 mmol/L 5-15 [facility] Automated lymphocyte count a s percentage of total leukocytesOrdered By: Layofroycandicejenni Mezamag on 12-06-2024 Lymphocytes/100 WBC Auto (Unsp spec) 23.6 % 19-41 [facility] BUN/creatinine ratioOrdered By: Layofroycandicejenni Mezajerilynelier on 12-06-2024 Urea nitrogen/Creatinine [Mass ratio] 13.2 mg/mg 10-20 [facility] Basophil percentageOrdered B y: Irvin Mckenna on 12-06-2024 Basophils/100 WBC (Bld) 0.3 % 0-1 [facility] Carbon dioxide, total [Moles /volume] in Central venous bloodOrdered By: Irvin Mckenna on 12-06-2024 CO2 [Moles/Vol] 24.6 mmol/L 21.0-32.0 [facility] Chloride assayOrdered By: Layo froynadiya Mckenna on 12-06-2024 Chloride [Moles/Vol] 100 mmol/L 98-108 [facility] Eosinophil percentageOrdered By: froywaltonjenni Mezajerilynelier on 12-06-2024 Eosinophils/100 WBC (Bld) 1.9 % 0-5 [facility] Erythrocyte distribution wid th ratioOrdered By: Layobeatris Mckenna on 12-06-2024 Erythrocyte distribution width (RBC) [Ratio] 16.0 % High 11.6-14.6 [facility] Erythrocyte distribution wid th standard deviationOrdered By: froywaltonjenni Mezajerilynelier on 12-06-2024 Erythrocyte distribution width (RBC) [Ratio] 66.8 fl High 35.1-43.9 [facility] Glomerular filtration rate ( GFR) estimation/1.73 sq m using serum, plasma, or whole bOrdered By: Irvin Mckenna on 12-06-2024 GFR/1.73 sq M.predicted among non-blacks MDRD (S/P/Bld) [Vol rate/Area] 83 mL/min/{1.73_m2} >60 [facility] Hematocrit Auto (Bld) [Volum e fraction]Ordered By: Irvin Mckenna on 12-06-2024 Hematocrit (Bld) [Volume fraction] 30.0 % Low 37-47 [facility] Hemoglobin measurementOrdere d By: Irvin Mckenna on 12-06-2024 Hemoglobin (Bld) [Mass/Vol] 10.1 g/dL Low 12.0-15.0 [facility] Immature granulocytes/100 WB C Auto (Bld)Ordered By: Irvin Walkerelier on 12-06-2024 Immature granulocytes/100 WBC (Bld) 0.300 % 0.0-0.9 [facility] MCV (mean corpuscular volume ) determinationOrdered By: Layofroycandicejenni Mezajerilynelier on 12-06-2024 MCV (RBC) [Entitic vol] 113.2 fL High 81-99 [facility] Mean corpuscular hemoglobin (MCH) determinationOrdered By: Layofroynadiya Derrickjerilynelier on 12-06-2024 MCH (RBC) [Entitic mass] 38.1 pg High 27.0-32.0 [facility] Monocyte percentageOrdered B y: Irvin Derrickmag on 12-06-2024 Monocytes/100 WBC (Bld) 12.9 % High 0-10 [facility] Neutrophil percentageOrdered By: Irvin Mezajerilynelier on 12-06-2024 Neutrophils/100 WBC (Bld) 61.0 % 47-70 [facility] No Panel InformationOrdered By: Anupamnadiya Derrickjerilynelier on 12-06-2024 RARE [facility] Platelet countOrdered By: Layo beatris Derrickmag on 12-06-2024 Platelets (Bld) [#/Vol] 272 10*3/uL 150-450 [facility] Potassium measurement (mass/ volume)Ordered By: Layobeatris Mezajerilynelier on 12-06-2024 Potassium (Unsp spec) [Mass/Vol] 3.0 mmol/L Low 3.3-5.1 [facility] RBC Auto (Bld) [#/Vol]Ordere d By: Krystinjenni Mezajerilynelier on 12-06-2024 RBC (Bld) [#/Vol] 2.65 10*6/uL Low 4.2-5.4 [facility] Serum creatinine measurement (mass/volume)Ordered By: Layobeatris Mezajerilynelier on 12-06-2024 Creatinine [Mass/Vol] 0.73 mg/dL 0.70-1.20 [facility] Serum glucose measurement (m ass/volume)Ordered By: Irvin Mckenna on 12-06-2024 Glucose [Mass/Vol] 87 mg/dL 70-99 [facility] Serum or plasma calcium niels urement (mass/volume)Ordered By: Krystinjenni Mezajerilynelier on 12-06-2024 Calcium [Mass/Vol] 9.2 mg/dL 7.6-11.0 [facility] Serum or plasma urea nitroge n measurement (mass/volume)Ordered By: Layofroycandicejenni Mezajerilynelier on 12-06-2024 Urea nitrogen [Mass/Vol] 10 mg/dL 4-19 [facility] Sodium levelOrdered By: Anupam Mckenna on 12-06-2024 Sodium [Moles/Vol] 137 mmol/L 133-145 [facility] White blood cell (WBC) count Ordered By: Irvin Derrickmag on 12-06-2024 WBC (Bld) [#/Vol] 3.6 10*3/uL Low 4.4-11.0 [facility] Basic Metabolic Profile (BMP )on 12-01-2024 BUN Normal 4-19 [facility] Comment on above: Result Comment: Canc elled via OM: Order cancelled - Patient discharged Performed By: #### L 100.0100, L500.2500 ####[facility] [id number] [facility] [address] BUN/CRE Normal 10-20 [facility] Comment on above: Result Comment: Canc elled via OM: Order cancelled - Patient discharged Performed By: #### L 100.0100, L500.2500 ####[facility] [id number] [place], [address] Calcium Normal 7.6-11.0 [facility] Comment on above: Result Comment: Canc elled via OM: Order cancelled - Patient discharged Performed By: #### L 100.0100, L500.2500 ####[facility] [id number] [place], [address] CL Normal 98-108 [facility] Comment on above: Result Comment: Canc elled via OM: Order cancelled - Patient discharged Performed By: #### L 100.0100, L500.2500 ####[facility] [id number] [place], [address] CO2 Normal 21.0-32.0 [facility] Comment on above: Result Comment: Canc elled via OM: Order cancelled - Patient discharged Performed By: #### L 100.0100, L500.2500 ####[facility] [id number] [place], [address] CREAT,SERUM Normal 0.70-1.20 [facility] Comment on above: Result Comment: Canc elled via OM: Order cancelled - Patient discharged Performed By: #### L 100.0100, L500.2500 ####[facility] [id number] [place], [address] eGFR Normal >60 [facility] Comment on above: Result Comment: Canc elled via OM: Order cancelled - Patient discharged Performed By: #### L 100.0100, L500.2500 ####[facility] [id number] [place], [address] GAP Normal 5-15 [facility] Comment on above: Result Comment: Canc elled via OM: Order cancelled - Patient discharged Performed By: #### L 100.0100, L500.2500 ####[facility] [id number] [place], [address] GLU Normal 70-99 [facility] Comment on above: Result Comment: Canc elled via OM: Order cancelled - Patient discharged Performed By: #### L 100.0100, L500.2500 ####[facility] [address] [place], [address] Potassium Normal 3.3-5.1 [facility] Comment on above: Result Comment: Canc elled via OM: Order cancelled - Patient discharged Performed By: #### L 100.0100, L500.2500 ####[facility] [id number] [place], [address] Basic Metabolic Profile (BMP) Normal 133-145 [facility] Comment on above: Result Comment: Canc elled via OM: Order cancelled - Patient discharged Performed By: #### L 100.0100, L500.2500 ####[facility] [id number], [address] CBC W/Diff, Automatedon - Absolute Neut Normal 2.0-7.7 [facility] Comment on above: Result Comment: Canc elled via OM: Order cancelled - Patient discharged Performed By: #### L 100.0100, L500.2500 ####[facility] [id number], [address] HCT Normal 37-47 [facility] Comment on above: Result Comment: Canc elled via OM: Order cancelled - Patient discharged Performed By: #### L 100.0100, L500.2500 ####[facility] [address] [place], [address] HGB Normal 12.0-15.0 [facility] Comment on above: Result Comment: Canc elled via OM: Order cancelled - Patient discharged Performed By: #### L 100.0100, L500.2500 ####[facility] [address] [place], [address] MCH Normal 27.0-32.0 [facility] Comment on above: Result Comment: Canc elled via OM: Order cancelled - Patient discharged Performed By: #### L 100.0100, L500.2500 ####[facility] [address] [place], [address] MCHC Normal 32-36 [facility] Comment on above: Result Comment: Canc elled via OM: Order cancelled - Patient discharged Performed By: #### L 100.0100, L500.2500 ####[facility] [id number], [address] MCV Normal 81-99 [facility] Comment on above: Result Comment: Canc elled via OM: Order cancelled - Patient discharged Performed By: #### L 100.0100, L500.2500 ####[facility] [address] [place], [address] NEUT% Normal 47-70 [facility] Comment on above: Result Comment: Canc elled via OM: Order cancelled - Patient discharged Performed By: #### L 100.0100, L500.2500 ####[facility] [id number], [address] PLT Normal 150-450 [facility] Comment on above: Result Comment: Canc elled via OM: Order cancelled - Patient discharged Performed By: #### L 100.0100, L500.2500 ####[facility] [address] [place], [address] RBC Normal 4.2-5.4 [facility] Comment on above: Result Comment: Canc elled via OM: Order cancelled - Patient discharged Performed By: #### L 100.0100, L500.2500 ####[facility] [address] [place], [address] RDW CV Normal 11.6-14.6 [facility] Comment on above: Result Comment: Canc elled via OM: Order cancelled - Patient discharged Performed By: #### L 100.0100, L500.2500 ####[facility] [address] [place], [address] RDW SD Normal 35.1-43.9 [facility] Comment on above: Result Comment: Canc elled via OM: Order cancelled - Patient discharged Performed By: #### L 100.0100, L500.2500 ####[facility] [id number] [place], [address] WBC Normal 4.4-11.0 [facility] Comment on above: Result Comment: Canc elled via OM: Order cancelled - Patient discharged Performed By: #### L 100.0100, L500.2500 ####[facility] [address] [place], [address] Absolute lymphocyte countOrd ered By: Irvin Mckenna on 11-29-2024 Lymphocytes Auto (Unsp spec) [#/Vol] 0.83 10*3/uL 0.83-4.51 [facility] Anion gap in Serum or Plasma Ordered By: beatris Mckenna on 11-29-2024 Anion gap [Moles/Vol] 13 mmol/L 5-15 [facility] Automated lymphocyte count a s percentage of total leukocytesOrdered By: Irvin Mckenna on 11-29-2024 Lymphocytes/100 WBC Auto (Unsp spec) 21.6 % 19-41 [facility] BUN/creatinine ratioOrdered By: Irvin Mckenna on 11-29-2024 Urea nitrogen/Creatinine [Mass ratio] 10.7 mg/mg 10-20 [facility] Basophil percentageOrdered B y: Irvin Mckenna on 11-29-2024 Basophils/100 WBC (Bld) 0.3 % 0-1 [facility] Bilirubin, totalOrdered By: Irvin Mckenna on 11-29-2024 Bilirubin [Mass/Vol] 0.57 mg/dL 0.00-1.30 [facility] Carbon dioxide, total [Moles /volume] in Central venous bloodOrdered By: beatris Mckenna on 11-29-2024 CO2 [Moles/Vol] 22.7 mmol/L 21.0-32.0 [facility] Chloride assayOrdered By: Layo Mckenna on 11-29-2024 Chloride [Moles/Vol] 101 mmol/L 98-108 [facility] Eosinophil percentageOrdered By: Anupamwaltonjenni Mckenna on 11-29-2024 Eosinophils/100 WBC (Bld) 1.3 % 0-5 [facility] Erythrocyte distribution wid th ratioOrdered By: Irvin Mckenna on 11-29-2024 Erythrocyte distribution width (RBC) [Ratio] 16.8 % High 11.6-14.6 [facility] Erythrocyte distribution wid th standard deviationOrdered By: Irvin Mckenna on 11-29-2024 Erythrocyte distribution width (RBC) [Ratio] 71.7 fl High 35.1-43.9 [facility] Folate [Moles/volume] in Ser um or PlasmaOrdered By: Irvin Mckenna on 11-29-2024 Folate [Moles/Vol] 28.00 ng/mL 4.60-34.80 [facility] Glomerular filtration rate ( GFR) estimation/1.73 sq m using serum, plasma, or whole bOrdered By: Irvin Mckenna on 11-29-2024 GFR/1.73 sq M.predicted among non-blacks MDRD (S/P/Bld) [Vol rate/Area] 69 mL/min/{1.73_m2} >60 [facility] Hematocrit Auto (Bld) [Volum e fraction]Ordered By: Irvin Mckenna on 11-29-2024 Hematocrit (Bld) [Volume fraction] 30.7 % Low 37-47 [facility] Hemoglobin measurementOrdere d By: Irvin Mckenna on 11-29-2024 Hemoglobin (Bld) [Mass/Vol] 10.3 g/dL Low 12.0-15.0 [facility] Immature granulocytes/100 WB C Auto (Bld)Ordered By: Irvin Mckenna 11-29-2024 Immature granulocytes/100 WBC (Bld) 0.500 % 0.0-0.9 [facility] MCV (mean corpuscular volume ) determinationOrdered By: Irvin Mckenna on 11-29-2024 MCV (RBC) [Entitic vol] 114.6 fL High 81-99 [facility] Mean corpuscular hemoglobin (MCH) determinationOrdered By: beatris Mckenna on 11-29-2024 MCH (RBC) [Entitic mass] 38.4 pg High 27.0-32.0 [facility] Monocyte percentageOrdered B y: Irvin Mckenna on 11-29-2024 Monocytes/100 WBC (Bld) 8.6 % 0-10 [facility] Neutrophil percentageOrdered By: Irvin Mckenna on 11-29-2024 Neutrophils/100 WBC (Bld) 67.7 % 47-70 [facility] No Panel InformationOrdered By: Irvin Mckenna on 11-29-2024 1+ [facility] 22 U/L <32 [facility] Platelet countOrdered By: Layo Mckenna on 11-29-2024 Platelets (Bld) [#/Vol] 249 10*3/uL 150-450 [facility] Potassium measurement (mass/ volume)Ordered By: Irvin Mckenna on 11-29-2024 Potassium (Unsp spec) [Mass/Vol] 3.3 mmol/L 3.3-5.1 [facility] RBC Auto (Bld) [#/Vol]Ordere d By: Irvin Mckenna on 11-29-2024 RBC (Bld) [#/Vol] 2.68 10*6/uL Low 4.2-5.4 [facility] Serum creatinine measurement (mass/volume)Ordered By: Irvin Mckenna on 11-29-2024 Creatinine [Mass/Vol] 0.85 mg/dL 0.70-1.20 [facility] Serum globulin measurementOr dered By: Irvin Mckenna on 11-29-2024 Globulin (S) [Mass/Vol] 2.9 g/dL 2.2-4.2 [facility] Serum glucose measurement (m ass/volume)Ordered By: Irvin Mckenna on 11-29-2024 Glucose [Mass/Vol] 79 mg/dL 70-99 [facility] Serum or plasma alanine bey otransferase (ALT) measurementOrdered By: Irvin Mckenna 11-29-2024 ALT [Catalytic activity/Vol] 7 U/L <35 [facility] Serum or plasma albumin niels urement (mass/volume)Ordered By: Irvin Mckenna on 11-29-2024 Albumin [Mass/Vol] 3.7 g/dL 3.4-4.8 [facility] Serum or plasma albumin/glob ulin mass ratioOrdered By: Irvin Mckenna on 11-29-2024 Albumin/Globulin [Mass ratio] 1.3 {ratio} 0.9-2.4 [facility] Serum or plasma alkaline victor hugo sphatase measurementOrdered By: Irvin Derrickmag on 11-29-2024 ALP [Catalytic activity/Vol] 75 U/L 35-104 [facility] Serum or plasma calcium niels urement (mass/volume)Ordered By: Irvin Derrickjerilynelier on 11-29-2024 Calcium [Mass/Vol] 9.3 mg/dL 7.6-11.0 [facility] Serum or plasma urea nitroge n measurement (mass/volume)Ordered By: Irvin Derrickmag on 11-29-2024 Urea nitrogen [Mass/Vol] 9 mg/dL 4-19 [facility] Sodium levelOrdered By: Anupam hearn Derrickmag on 11-29-2024 Sodium [Moles/Vol] 137 mmol/L 133-145 [facility] TSH DL <= 0.005 mIU/L QnOrde red By: Irvin Derrickmag on 11-29-2024 TSH Qn 1.490 uIU/mL 0.300-4.20 0 [facility] Total proteinOrdered By: Luca Mckenna on 11-29-2024 Protein [Mass/Vol] 6.6 g/dL 5.9-8.4 [facility] White blood cell (WBC) count Ordered By: Layofroycandicejenni Mckenna on 11-29-2024 WBC (Bld) [#/Vol] 3.8 10*3/uL Low 4.4-11.0 [facility] Absolute lymphocyte countOrd ered By: Dago Emery on 11-24-2024 Lymphocytes Auto (Unsp spec) [#/Vol] 1.12 10*3/uL 0.83-4.51 [facility] Absolute neutrophil countOrd ered By: Dago Emery on 11-24-2024 Neutrophils (Bld) [#/Vol] 2.7 10*3/uL 2.0-7.7 [facility] Anion gap in Serum or Plasma Ordered By: Dago Emery on 11-24-2024 Anion gap [Moles/Vol] 12 mmol/L 5-15 [facility] Automated lymphocyte count a s percentage of total leukocytesOrdered By: Dago Emery on 11-24-2024 Lymphocytes/100 WBC Auto (Unsp spec) 27.0 % [facility] BUN/creatinine ratioOrdered By: Dago Emery on 11-24-2024 Urea nitrogen/Creatinine [Mass ratio] 11.3 mg/mg - [facility] Basic Metabolic Profile (BMP )on 11-24-2024 BUN/CRE 11.3 RATIO Normal - [facility] Comment on above: Performed By: #### L 500.2500, L100.0100 ####[facility] [address] [place], [address] Calcium [Mass/Vol] 9.0 mg/dL Normal 7.6-11.0 [facility] Comment on above: Performed By: #### L 500.2500, L100.0100 ####[facility] [address] [place], [address] Chloride [Moles/Vol] 100 mmol/L Normal 98-108 [facility] Comment on above: Performed By: #### L 500.2500, L100.0100 ####[facility] [address] [place], [address] CO2 [Moles/Vol] 24.0 mmol/L Normal 21.0-32.0 [facility] Comment on above: Performed By: #### L 500.2500, L100.0100 ####[facility] [address] [place], [address] Creatinine [Mass/Vol] 1.02 mg/dL Normal 0.70-1.20 [facility] Comment on above: Performed By: #### L 500.2500, L100.0100 ####[facility] [address] [place], [address] ECRCL 46.75 ml/min Low 50-250 [facility] Comment on above: Performed By: #### L 500.2500, L100.0100 ####[facility] [address] [place], [address] GAP 12 Normal 5-15 [facility] Comment on above: Performed By: #### L 500.2500, L100.0100 ####[facility] [address] [place], [address] GFR/1.73 sq M.predicted among non-blacks MDRD (S/P/Bld) [Vol rate/Area] 55 mL/min/{1.73_m2} Low >60 [facility] Comment on above: Result Comment: mL/m in/1.73m2 CKD-EPI Creatinine Equation (2020) Performed By: #### L 500.2500, L100.0100 ####[facility] [address] [place], [address] Glucose [Mass/Vol] 119 mg/dL High 70-99 [facility] Comment on above: Performed By: #### L 500.2500, L100.0100 ####[facility] [address] [place], [address] Potassium [Moles/Vol] 3.7 mmol/L Normal 3.3-5.1 [facility] Comment on above: Performed By: #### L 500.2500, L100.0100 ####[facility] [address] [place], [address] Sodium [Moles/Vol] 135 mmol/L Normal 133-145 [facility] Comment on above: Performed By: #### L 500.2500, L100.0100 ####[facility] [address] [place], [address] Urea nitrogen [Mass/Vol] 12 mg/dL Normal 4-19 [facility] Comment on above: Performed By: #### L 500.2500, L100.0100 ####[facility] [address] [place], [place], [address] Basophil percentageOrdered B y: Dago Emery on 11-24-2024 Basophils/100 WBC (Bld) 0.5 % 0-1 [facility] Blood manual differential co mment interpretation (narrative result)Ordered By: Dago Emery on 11-24-2024 Manual differential comment Jack (Bld) [Interp] SCANNED [facility] CBC W/Diff, Automatedon Anisocytosis Ql (Bld) 2+ Normal [facility] Comment on above: Performed By: #### L 500.2500, L100.0100 ####[facility] [address] [place], [place], [address] SMEAR COMMENT SCANNED Normal [facility] Comment on above: Performed By: #### L 500.2500, L100.0100 ####[facility] [address] [place], [place], [address] Carbon dioxide, total [Moles /volume] in Central venous bloodOrdered By: Dago Rupert on 11-24-2024 CO2 [Moles/Vol] 24.0 mmol/L 21.0-32.0 [facility] Chloride assayOrdered By: Jorge Emery on 11-24-2024 Chloride [Moles/Vol] 100 mmol/L 98-108 [facility] Eosinophil percentageOrdered By: Dago Emery on 11-24-2024 Eosinophils/100 WBC (Bld) 2.2 % 0-5 [facility] Erythrocyte distribution wid th ratioOrdered By: Dago Emery on 11-24-2024 Erythrocyte distribution width (RBC) [Ratio] 16.9 % High 11.6-14.6 [facility] Erythrocyte distribution wid th standard deviationOrdered By: Dago Rupert on 11-24-2024 Erythrocyte distribution width (RBC) [Ratio] 70.3 fl High 35.1-43.9 [facility] Glomerular filtration rate ( GFR) estimation/1.73 sq m using serum, plasma, or whole bOrdered By: Dago Emery on 11-24-2024 GFR/1.73 sq M.predicted among non-blacks MDRD (S/P/Bld) [Vol rate/Area] 55 mL/min/{1.73_m2} Low >60 [facility] Comment on above: mL/min/1.73m2 CKD-EP I Creatinine Equation (2020) Hematocrit Auto (Bld) [Volum e fraction]Ordered By: Dago Emery on 11-24-2024 Hematocrit (Bld) [Volume fraction] 30.7 % Low 37-47 [facility] Hemoglobin measurementOrdere d By: Dago Emery on 11-24-2024 Hemoglobin (Bld) [Mass/Vol] 10.3 g/dL Low 12.0-15.0 [facility] Immature granulocytes/100 WB C Auto (Bld)Ordered By: Dago Emery 11-24-2024 Immature granulocytes/100 WBC (Bld) 0.500 % 0.0-0.9 [facility] Comment on above: IG% - Immature Granu locytes (promyelocytes, myelocytes and metamyelocytes) > 1% indicates that a LEFT SHIFT is Present. Laboratory - Hematology and Cell countsOrdered By: Dago Emery on 11-24-2024 Anisocytosis Ql (Bld) 2+ [facility] MCV (mean corpuscular volume ) determinationOrdered By: Dago Emery 11-24-2024 MCV (RBC) [Entitic vol] 115.0 fL High 81-99 [facility] Mean corpuscular hemoglobin (MCH) determinationOrdered By: Dago Emery 11-24-2024 MCH (RBC) [Entitic mass] 38.6 pg High 27.0-32.0 [facility] Mean corpuscular hemoglobin concentration (MCHC) determinationOrdered By: Dago Emery 11-24-2024 MCHC (RBC) [Mass/Vol] 33.6 g/dL 32-36 [facility] Mean platelet volume determi nationOrdered By: Dago Emery 11-24-2024 Platelet mean volume (Bld) [Entitic vol] 10.0 fL 6.2-12.0 [facility] Monocyte percentageOrdered B y: Dago Emery on 11-24-2024 Monocytes/100 WBC (Bld) 5.3 % 0-10 [facility] Neutrophil percentageOrdered By: Dago Emery 11-24-2024 Neutrophils/100 WBC (Bld) 64.5 % 47-70 [facility] No Panel InformationOrdered By: Dago Emery on 11-24-2024 2+ [facility] Nucleated red blood cell per centageOrdered By: Dago Emery on 11-24-2024 Nucleated RBC/100 WBC (Bld) [Ratio] 0 % 0-5 [facility] Platelet countOrdered By: Jorge Emery on 11-24-2024 Platelets (Bld) [#/Vol] 239 10*3/uL 150-450 [facility] Potassium measurement (mass/ volume)Ordered By: Dago Emery on 11-24-2024 Potassium (Unsp spec) [Mass/Vol] 3.7 mmol/L 3.3-5.1 [facility] RBC Auto (Bld) [#/Vol]Ordere d By: Dago Emery on 11-24-2024 RBC (Bld) [#/Vol] 2.67 10*6/uL Low 4.2-5.4 [facility] Serum creatinine measurement (mass/volume)Ordered By: Dago Emery on 11-24-2024 Creatinine [Mass/Vol] 1.02 mg/dL 0.70-1.20 [facility] Serum glucose measurement (m ass/volume)Ordered By: Dago Emery on 11-24-2024 Glucose [Mass/Vol] 119 mg/dL High 70-99 [facility] Serum or plasma calcium niels urement (mass/volume)Ordered By: Dago Emery on 11-24-2024 Calcium [Mass/Vol] 9.0 mg/dL 7.6-11.0 [facility] Serum or plasma urea nitroge n measurement (mass/volume)Ordered By: Dago Emery on 11-24-2024 Urea nitrogen [Mass/Vol] 12 mg/dL 4-19 [facility] Sodium levelOrdered By: Dago Emery on 11-24-2024 Sodium [Moles/Vol] 135 mmol/L 133-145 [facility] White blood cell (WBC) count Ordered By: Dago Emery on 11-24-2024 WBC (Bld) [#/Vol] 4.2 10*3/uL Low 4.4-11.0 [facility] Basic Metabolic Profile (BMP )on 11-17-2024 BUN/CRE 14.3 RATIO Normal 10-20 [facility] Comment on above: Performed By: #### L 100.0100, L500.2500 ####[facility] [address] [place], [address] Calcium [Mass/Vol] 8.9 mg/dL Normal 7.6-11.0 [facility] Comment on above: Performed By: #### L 100.0100, L500.2500 ####[facility] [address] [place], [address] Chloride [Moles/Vol] 101 mmol/L Normal 98-108 [facility] Comment on above: Performed By: #### L 100.0100, L500.2500 ####[facility] [address] [place], [address] CO2 [Moles/Vol] 23.8 mmol/L Normal 21.0-32.0 [facility] Comment on above: Performed By: #### L 100.0100, L500.2500 ####[facility] [address] [place], [address] Creatinine [Mass/Vol] 1.02 mg/dL Normal 0.70-1.20 [facility] Comment on above: Performed By: #### L 100.0100, L500.2500 ####[facility] [address] [place], [address] ECRCL 47.80 ml/min Low 50-250 [facility] Comment on above: Performed By: #### L 100.0100, L500.2500 ####[facility] [address] [place], [address] GAP 11 Normal 5-15 [facility] Comment on above: Performed By: #### L 100.0100, L500.2500 ####[facility] [address] [place], [address] GFR/1.73 sq M.predicted among non-blacks MDRD (S/P/Bld) [Vol rate/Area] 55 mL/min/{1.73_m2} Low >60 [facility] Comment on above: Result Comment: mL/m in/1.73m2 CKD-EPI Creatinine Equation (2020) Performed By: #### L 100.0100, L500.2500 ####[facility] [address] [place], [address] Glucose [Mass/Vol] 82 mg/dL Normal 70-99 [facility] Comment on above: Performed By: #### L 100.0100, L500.2500 ####[facility] [address] [place], [address] Potassium [Moles/Vol] 3.8 mmol/L Normal 3.3-5.1 [facility] Comment on above: Performed By: #### L 100.0100, L500.2500 ####[facility] [address] [place], [address] Sodium [Moles/Vol] 136 mmol/L Normal 133-145 [facility] Comment on above: Performed By: #### L 100.0100, L500.2500 ####[facility] [address] [place], [address] Urea nitrogen [Mass/Vol] 15 mg/dL Normal 4-19 [facility] Comment on above: Performed By: #### L 100.0100, L500.2500 ####[facility] [address] [place], [address] CBC W/Diff, Automatedon 10-21 Anisocytosis Ql (Bld) 1+ Normal [facility] Comment on above: Performed By: #### L 100.0100, L500.2500 ####[facility] [address] [place], [address] HH, Hemoglobin AND Hematocri ton 11-15-2024 Hematocrit (Bld) [Volume fraction] 26.1 % Low [address] [place] [address] Comment on above: Performed By: #### L 100.0600 ####[facility] [address] [place], [address] Hemoglobin (Bld) [Mass/Vol] 8.8 g/dL Low 12.0-15.0 [facility] Comment on above: Performed By: #### L 100.0600 ####[facility] [address] [place], [address] COVID 19 AG RAPID (RN COLLEC T)on 11-13-2024 SARS-CoV-2 (COVID-19) RNA JANY+probe Ql (Unsp spec) Normal [facility] Comment on above: Performed By: #### M 100.505 ####[facility] [address] [place], [address] COVID-19 virus antigen assay Ordered By: Dago Emery on 11-13-2024 SARS-CoV-2 (COVID-19) Ag IA.rapid Ql (Resp) [facility] HH, Hemoglobin AND Hematocri ton 11-13-2024 Hematocrit (Bld) [Volume fraction] 25.3 % Low [address] [place] [address] Comment on above: Performed By: #### L 100.0600 ####[facility] [address] [place], [address] Hemoglobin (Bld) [Mass/Vol] 8.6 g/dL Low 12.0-15.0 [facility] Comment on above: Performed By: #### L 100.0600 ####[facility] [address] [place], [address] COVID 19 AG RAPID (RN COLLEC T)on 11-11-2024 SARS-CoV-2 (COVID-19) RNA JANY+probe Ql (Unsp spec) Normal [facility] Comment on above: Performed By: #### M 100.505 ####[facility] [address] [place], [address] COVID-19 virus antigen assay Ordered By: Dago Emery on 11-11-2024 SARS-CoV-2 (COVID-19) Ag rapid Ql (Resp) [facility] Basic Metabolic Profile (BMP )on 11-10-2024 BUN/CRE 13.9 RATIO Normal 10-20 [facility] Comment on above: Performed By: #### L 500.2500, L100.0100 ####[facility] [address] [place], [address] Calcium [Mass/Vol] 8.5 mg/dL Normal 7.6-11.0 [facility] Comment on above: Performed By: #### L 500.2500, L100.0100 ####[facility] [address] [place], [address] Chloride [Moles/Vol] 102 mmol/L Normal 98-108 [facility] Comment on above: Performed By: #### L 500.2500, L100.0100 ####[facility] [address] [place], [address] CO2 [Moles/Vol] 25.0 mmol/L Normal 21.0-32.0 [facility] Comment on above: Performed By: #### L 500.2500, L100.0100 ####[facility] [address] [place], [address] Creatinine [Mass/Vol] 0.90 mg/dL Normal 0.70-1.20 [facility] Comment on above: Performed By: #### L 500.2500, L100.0100 ####[facility] [address] [place], [address] ECRCL 54.17 ml/min Normal 50-250 [facility] Comment on above: Performed By: #### L 500.2500, L100.0100 ####[facility] [address] [place], [address] GAP 11 Normal 5-15 [facility] Comment on above: Performed By: #### L 500.2500, L100.0100 ####[facility] [address] [place], [address] GFR/1.73 sq M.predicted among non-blacks MDRD (S/P/Bld) [Vol rate/Area] 64 mL/min/{1.73_m2} Normal >60 [facility] Comment on above: Result Comment: mL/m in/1.73m2 CKD-EPI Creatinine Equation (2020) Performed By: #### L 500.2500, L100.0100 ####[facility] [address] [place], [address] Glucose [Mass/Vol] 82 mg/dL Normal 70-99 [facility] Comment on above: Performed By: #### L 500.2500, L100.0100 ####[facility] [address] [place], [address] Potassium [Moles/Vol] 3.7 mmol/L Normal 3.3-5.1 [facility] Comment on above: Performed By: #### L 500.2500, L100.0100 ####[facility] [address] [place], [address] Sodium [Moles/Vol] 138 mmol/L Normal 133-145 [facility] Comment on above: Performed By: #### L 500.2500, L100.0100 ####[facility] [address] [place], [address] Urea nitrogen [Mass/Vol] 13 mg/dL Normal 4-19 [facility] Comment on above: Performed By: #### L 500.2500, L100.0100 ####[facility] [address] [place], [address] Blood polychromasia detectio n by light microscopyOrdered By: Dago Emery on 11-10-2024 Polychromasia LM Ql (Bld) 1+ [facility] CBC W/Diff, Automatedon 10-21 POLYCHROMASIA 1+ Normal [facility] Comment on above: Performed By: #### L 500.2500, L100.0100 ####[facility] [address] [place], [address] Anisocytosis Ql (Bld) 2+ Normal [facility] Comment on above: Performed By: #### L 500.2500, L100.0100 ####[facility] [address] [place], [place], [id number] PLT EST ADEQUATE Normal ADEQ [facility] Comment on above: Performed By: #### L 500.2500, L100.0100 ####[facility] [address] [place], [place], [id number] Platelet estimateOrdered By: Dago Emery on 11-10-2024 Platelets LM Ql (Bld) ADEQUATE ADEQ [facility] COVID 19 AG RAPID (DOUGLAS Devine)on 11-09-2024 SARS-CoV-2 (COVID-19) RNA JANY+probe Ql (Unsp spec) Normal [facility] Comment on above: Performed By: #### M 100.505 ####[facility] [address] [place], [place], [id number] COVID-19 virus antigen assay Ordered By: Dago Emery on 11-09-2024 SARS-CoV-2 (COVID-19) Ag IA.rapid Ql (Resp) [facility] Ankle min 3 Viewson 11-04-19 25 Ankle min 3 Views Normal [facility] Basic Metabolic Profile (BMP )on 11-03-2024 BUN/CRE 15.7 RATIO Normal 10-20 [facility] Comment on above: Performed By: #### L 500.2500, L100.0100 ####[facility] [address] [place], [address] Calcium [Mass/Vol] 8.8 mg/dL Normal 7.6-11.0 [facility] Comment on above: Performed By: #### L 500.2500, L100.0100 ####[facility] [address] [place], [address] Chloride [Moles/Vol] 101 mmol/L Normal 98-108 [facility] Comment on above: Performed By: #### L 500.2500, L100.0100 ####[facility] [address] [place], [address] CO2 [Moles/Vol] 22.1 mmol/L Normal 21.0-32.0 [facility] Comment on above: Performed By: #### L 500.2500, L100.0100 ####[facility] [address] [place], [address] Creatinine [Mass/Vol] 1.16 mg/dL Normal 0.70-1.20 [facility] Comment on above: Performed By: #### L 500.2500, L100.0100 ####[facility] [address] [place], [address] ECRCL 42.03 ml/min Low 50-250 [facility] Comment on above: Performed By: #### L 500.2500, L100.0100 ####[facility] [address] [place], [address] GAP 11 Normal 5-15 [facility] Comment on above: Performed By: #### L 500.2500, L100.0100 ####[facility] [address] [place], [address] GFR/1.73 sq M.predicted among non-blacks MDRD (S/P/Bld) [Vol rate/Area] 47 mL/min/{1.73_m2} Low >60 [facility] Comment on above: Result Comment: mL/m in/1.73m2 CKD-EPI Creatinine Equation (2020) Performed By: #### L 500.2500, L100.0100 ####[facility] [address] [place], [address] Glucose [Mass/Vol] 88 mg/dL Normal 70-99 [facility] Comment on above: Performed By: #### L 500.2500, L100.0100 ####[facility] [address] [place], [address] Potassium [Moles/Vol] 4.0 mmol/L Normal 3.3-5.1 [facility] Comment on above: Performed By: #### L 500.2500, L100.0100 ####[facility] [address] [place], [address] Sodium [Moles/Vol] 134 mmol/L Normal 133-145 [facility] Comment on above: Performed By: #### L 500.2500, L100.0100 ####[facility] [address] [place], [address] Urea nitrogen [Mass/Vol] 18 mg/dL Normal 4-19 [facility] Comment on above: Performed By: #### L 500.2500, L100.0100 ####[facility] [address] [place], [address] CBC W/Diff, Automatedon 10-20 Anisocytosis Ql (Bld) 2+ Normal [facility] Comment on above: Performed By: #### L 500.2500, L100.0100 ####[facility] [address] [place], [address] MACROCYTOSIS 2+ Normal [facility] Comment on above: Performed By: #### L 500.2500, L100.0100 ####[facility] [address] [place], [address] POLYCHROMASIA RARE Normal [facility] Comment on above: Performed By: #### L 500.2500, L100.0100 ####[facility] [address] [place], [address] RED CELL MORPH N CHROM Normal NORM C C [facility] Comment on above: Performed By: #### L 500.2500, L100.0100 ####[facility] [address] [place], [address] SMEAR COMMENT SCANNED Normal [facility] Comment on above: Performed By: #### L 500.2500, L100.0100 ####[facility] [address] [place], [address] Erythrocyte morphology asses smentOrdered By: Dago Emery on 11-03-2024 RBC morphology finding Nom (Bld) N CHROM NORMAL NORM C&C [facility] Macrocytes detectionOrdered By: Dago Emery on 11-03-2024 Macrocytes Ql (Bld) 2+ [facility] EGD Reporton 11-01-2024 EGD Report Normal [facility] Immunohistochemical Stainson 11-01-2024 Immunohistochemical Stains Normal [facility] Comment on above: Performed By: #### P IMHI ####[facility] [address] [place], [address] MR/OP.PROVATon 11-01-2024 MR/OP.PROVAT Normal [facility] MR/POSTOP.ANEon 11-01-2024 MR/POSTOP.ANE Normal [facility] MR/OEMAPOJL4bh 11-01-2024 MR/POSTOPAN2 Normal [facility] Ankle min 3 Viewson 11-01-19 25 Ankle min 3 Views [facility] HH, Hemoglobin AND Hematocri ton 10-31-2024 Hematocrit (Bld) [Volume fraction] 24.8 % Low 37-47 [facility] Comment on above: Performed By: #### L 100.0600 ####[facility] [address] [place], [place], [id number]) Hemoglobin (Bld) [Mass/Vol] 8.4 g/dL Low 12.0-15.0 [facility] Comment on above: Performed By: #### L 100.0600 ####[facility] [address] [place], [address] Hematocrit Auto (Bld) [Volum e fraction]Ordered By: Dago Emery on 10-31-2024 Hematocrit (Bld) [Volume fraction] 24.8 % Low 37-47 [facility] Hemoglobin measurementOrdere d By: Dago Emery on 10-31-2024 Hemoglobin (Bld) [Mass/Vol] 8.4 g/dL Low 12.0-15.0 [facility] Knee 1 or 2 Viewson 11-01-19 25 Knee 1 or 2 Views Normal [facility] MR/CON.PCM.GIon 10-31-2024 MR/CON.PCM.GI Normal [facility] Stool Occult Blood iFOBon STOB Positive Normal [facility] Comment on above: Performed By: #### M 100.7900 ####[facility] [address] [place], [address] Stool gastrointestinal hemog lobin detection by immunologic methodOrdered By: Dago Emery on 10-31-2024 Lower GI hemoglobin IA Ql (Stl) Positive Abnormal [facility] [facility] HH, Hemoglobin AND Hematocri ton 10-30-2024 Hematocrit (Bld) [Volume fraction] 24.1 % Low [address] [place] [address] Comment on above: Performed By: #### L 100.0600 ####[facility] [address] [place], [address]( Hemoglobin (Bld) [Mass/Vol] 7.9 g/dL Low 12.0-15.0 [facility] Comment on above: Performed By: #### L 100.0600 ####[facility] [address] [place], [address](139) HH, Hemoglobin AND Hematocri ton 10-28-2024 Hematocrit (Bld) [Volume fraction] 25.0 % Low 37-47 [facility] Comment on above: Performed By: #### L 100.0600 ####[facility] [address] [place], [place], [id number] Hemoglobin (Bld) [Mass/Vol] 8.3 g/dL Low 12.0-15.0 [facility] Comment on above: Performed By: #### L 100.0600 ####[facility] [address] [place], [address] Absolute lymphocyte countOrd ered By: Dago Emery on 10-27-2024 Lymphocytes Auto (Unsp spec) [#/Vol] 1.30 10*3/uL 0.83-4.51 [facility] Absolute neutrophil countOrd ered By: Dago mEery on 10-27-2024 Neutrophils (Bld) [#/Vol] 2.7 10*3/uL 2.0-7.7 [facility] Anion gap in Serum or Plasma Ordered By: Dago Emery on 10-27-2024 Anion gap [Moles/Vol] 10 mmol/L 5-15 [facility] Automated lymphocyte count a s percentage of total leukocytesOrdered By: Dago Emery on 10-27-2024 Lymphocytes/100 WBC Auto (Unsp spec) 27.7 % 19-41 [facility] BUN/creatinine ratioOrdered By: Dago Emery on 10-27-2024 Urea nitrogen/Creatinine [Mass ratio] 24.5 mg/mg High 10-20 [facility] Basic Metabolic Profile (BMP )on 10-27-2024 BUN/CRE 24.5 RATIO High 10-20 [facility] Comment on above: Performed By: #### L 500.2500, L100.0100 ####[facility] [address], [address] Calcium [Mass/Vol] 8.8 mg/dL Normal 7.6-11.0 [facility] Comment on above: Performed By: #### L 500.2500, L100.0100 ####[facility] [address] [place], [address] Chloride [Moles/Vol] 100 mmol/L Normal 98-108 [facility] Comment on above: Performed By: #### L 500.2500, L100.0100 ####[facility] [address] [place], [address] CO2 [Moles/Vol] 22.3 mmol/L Normal 21.0-32.0 [facility] Comment on above: Performed By: #### L 500.2500, L100.0100 ####[facility] [address] [place], [address] Creatinine [Mass/Vol] 1.16 mg/dL Normal 0.70-1.20 [facility] Comment on above: Performed By: #### L 500.2500, L100.0100 ####[facility] [address] [place], [address] ECRCL 42.03 ml/min Low 50-250 [facility] Comment on above: Performed By: #### L 500.2500, L100.0100 ####[facility] [address] [place], [address] GAP 10 Normal 5-15 [facility] Comment on above: Performed By: #### L 500.2500, L100.0100 ####[facility] [address] [place], [address] GFR/1.73 sq M.predicted among non-blacks MDRD (S/P/Bld) [Vol rate/Area] 47 mL/min/{1.73_m2} Low >60 [facility] Comment on above: Result Comment: mL/m in/1.73m2 CKD-EPI Creatinine Equation (2020) Performed By: #### L 500.2500, L100.0100 ####[facility] [address] [place], [address] Glucose [Mass/Vol] 85 mg/dL Normal 70-99 [facility] Comment on above: Performed By: #### L 500.2500, L100.0100 ####[facility] [address] [place], [address] Potassium [Moles/Vol] 4.5 mmol/L Normal 3.3-5.1 [facility] Comment on above: Performed By: #### L 500.2500, L100.0100 ####[facility] [address] [place], [address] Sodium [Moles/Vol] 133 mmol/L Normal 133-145 [facility] Comment on above: Performed By: #### L 500.2500, L100.0100 ####[facility] [address] [place], [address] Urea nitrogen [Mass/Vol] 28 mg/dL High 4-19 [facility] Comment on above: Performed By: #### L 500.2500, L100.0100 ####[facility] [address] [place], [address] Basophil percentageOrdered B y: Dago Emery on 10-27-2024 Basophils/100 WBC (Bld) 0.4 % 0-1 [facility] Blood polychromasia detectio n by light microscopyOrdered By: Dago Emery on 10-27-2024 Polychromasia LM Ql (Bld) RARE [facility] CBC W/Diff, Automatedon 08-0 Anisocytosis Ql (Bld) 2+ Normal [facility] Comment on above: Performed By: #### L 500.2500, L100.0100 ####[facility] [address] [place], [address] POLYCHROMASIA RARE Normal [facility] Comment on above: Performed By: #### L 500.2500, L100.0100 ####[facility] [address] [place], [address] RED CELL MORPH NORM C+C Normal NORM C C [facility] Comment on above: Performed By: #### L 500.2500, L100.0100 ####[facility] [address] [place], [address] Carbon dioxide, total [Moles /volume] in Central venous bloodOrdered By: Dago Emery on 10-27-2024 CO2 [Moles/Vol] 22.3 mmol/L 21.0-32.0 [facility] Chloride assayOrdered By: Jorge Emery on 10-27-2024 Chloride [Moles/Vol] 100 mmol/L 98-108 [facility] Eosinophil percentageOrdered By: Dago Emery on 10-27-2024 Eosinophils/100 WBC (Bld) 3.0 % 0-5 [facility] Erythrocyte distribution wid th ratioOrdered By: Dago Emery on 10-27-2024 Erythrocyte distribution width (RBC) [Ratio] 15.9 % High 11.6-14.6 [facility] Erythrocyte distribution wid th standard deviationOrdered By: Dago Emery on 10-27-2024 Erythrocyte distribution width (RBC) [Ratio] 65.3 fl High 35.1-43.9 [facility] Erythrocyte morphology asses smentOrdered By: Dago Emery on 10-27-2024 RBC morphology finding Nom (Bld) NORM C+C NORMAL NORM C&C [facility] Glomerular filtration rate ( GFR) estimation/1.73 sq m using serum, plasma, or whole bOrdered By: Dago Emery on 10-27-2024 GFR/1.73 sq M.predicted among non-blacks MDRD (S/P/Bld) [Vol rate/Area] 47 mL/min/{1.73_m2} Low >60 [facility] Comment on above: mL/min/1.73m2 CKD-EP I Creatinine Equation (2020) Immature granulocytes/100 WB C Auto (Bld)Ordered By: Dago Emery on 10-27-2024 Immature granulocytes/100 WBC (Bld) 1.500 % High 0.0-0.9 [facility] Comment on above: IG% - Immature Granu locytes (promyelocytes, myelocytes and metamyelocytes) > 1% indicates that a LEFT SHIFT is Present. Laboratory - Hematology and Cell countsOrdered By: Dago Emery on 10-27-2024 Anisocytosis Ql (Bld) 2+ [facility] MCV (mean corpuscular volume ) determinationOrdered By: Dago Emery on 10-27-2024 MCV (RBC) [Entitic vol] 113.4 fL High 81-99 [facility] Mean corpuscular hemoglobin (MCH) determinationOrdered By: Dago Emery 10-27-2024 MCH (RBC) [Entitic mass] 37.0 pg High 27.0-32.0 [facility] Mean corpuscular hemoglobin concentration (MCHC) determinationOrdered By: Dago Emery 10-27-2024 MCHC (RBC) [Mass/Vol] 32.7 g/dL 32-36 [facility] Mean platelet volume determi nationOrdered By: Dago Emery on 10-27-2024 Platelet mean volume (Bld) [Entitic vol] 9.9 fL 6.2-12.0 [facility] Monocyte percentageOrdered B y: Dago Emery on 10-27-2024 Monocytes/100 WBC (Bld) 10.6 % High 0-10 [facility] Neutrophil percentageOrdered By: Dago Emery 10-27-2024 Neutrophils/100 WBC (Bld) 56.8 % 47-70 [facility] Nucleated red blood cell per centageOrdered By: Dago Emery 10-27-2024 Nucleated RBC/100 WBC (Bld) [Ratio] 0 % 0-5 [facility] Platelet countOrdered By: Jorge Emery on 10-27-2024 Platelets (Bld) [#/Vol] 230 10*3/uL 150-450 [facility] Potassium measurement (mass/ volume)Ordered By: Dago Emery on 10-27-2024 Potassium (Unsp spec) [Mass/Vol] 4.5 mmol/L 3.3-5.1 [facility] RBC Auto (Bld) [#/Vol]Ordere d By: Dago Emery on 10-27-2024 RBC (Bld) [#/Vol] 2.16 10*6/uL Low 4.2-5.4 [facility] Serum creatinine measurement (mass/volume)Ordered By: Dago Emery on 10-27-2024 Creatinine [Mass/Vol] 1.16 mg/dL 0.70-1.20 [facility] Serum glucose measurement (m ass/volume)Ordered By: Dago Emery on 10-27-2024 Glucose [Mass/Vol] 85 mg/dL 70-99 [facility] Serum or plasma calcium niels urement (mass/volume)Ordered By: Dago Emery on 10-27-2024 Calcium [Mass/Vol] 8.8 mg/dL 7.6-11.0 [facility] Serum or plasma urea nitroge n measurement (mass/volume)Ordered By: Dago Emery on 10-27-2024 Urea nitrogen [Mass/Vol] 28 mg/dL High 4-19 [facility] Sodium levelOrdered By: Dago Emery on 10-27-2024 Sodium [Moles/Vol] 133 mmol/L 133-145 [facility] White blood cell (WBC) count Ordered By: Dago Emery on 10-27-2024 WBC (Bld) [#/Vol] 4.7 10*3/uL 4.4-11.0 [facility] Basic Metabolic Profile (BMP )on 10-22-2024 BUN/CRE 26.3 RATIO High 10-20 [facility] Comment on above: Performed By: #### L 500.2500, L100.0100 ####[facility] [address] [place], [address] Calcium [Mass/Vol] 8.9 mg/dL Normal 7.6-11.0 [facility] Comment on above: Performed By: #### L 500.2500, L100.0100 ####[facility] [address] [place], [address] Chloride [Moles/Vol] 103 mmol/L Normal 98-108 [facility] Comment on above: Performed By: #### L 500.2500, L100.0100 ####[facility] [address] [place], [address] CO2 [Moles/Vol] 22.0 mmol/L Normal 21.0-32.0 [facility] Comment on above: Performed By: #### L 500.2500, L100.0100 ####[facility] [address] [place], [address] Creatinine [Mass/Vol] 0.84 mg/dL Normal 0.70-1.20 [facility] Comment on above: Performed By: #### L 500.2500, L100.0100 ####[facility] [address] [place], [address] ECRCL 57.97 ml/min Normal 50-250 [facility] Comment on above: Performed By: #### L 500.2500, L100.0100 ####[facility] [address] [place], [address] GAP 10 Normal 5-15 [facility] Comment on above: Performed By: #### L 500.2500, L100.0100 ####[facility] [address] [place], [address] GFR/1.73 sq M.predicted among non-blacks MDRD (S/P/Bld) [Vol rate/Area] 70 mL/min/{1.73_m2} Normal >60 [facility] Comment on above: Result Comment: mL/m in/1.73m2 CKD-EPI Creatinine Equation (2020) Performed By: #### L 500.2500, L100.0100 ####[facility] [address] [place], [address] Glucose [Mass/Vol] 94 mg/dL Normal 70-99 [facility] Comment on above: Performed By: #### L 500.2500, L100.0100 ####[facility] [address] [place], [address] Potassium [Moles/Vol] 4.0 mmol/L Normal 3.3-5.1 [facility] Comment on above: Performed By: #### L 500.2500, L100.0100 ####[facility] [address] [place], [address] Sodium [Moles/Vol] 135 mmol/L Normal 133-145 [facility] Comment on above: Performed By: #### L 500.2500, L100.0100 ####[facility] [address] [place], [address] Urea nitrogen [Mass/Vol] 22 mg/dL High 4-19 [facility] Comment on above: Performed By: #### L 500.2500, L100.0100 ####[facility] [address] [place], [address] CBC W/Diff, Automatedon 08-0 3-2025 Absolute Lymph 1.22 X10 3/uL Normal 0.83-4.51 [facility] Comment on above: Performed By: #### L 500.2500, L100.0100 ####[facility] [address] [place], [address] Absolute Neut 3.2 X10 3/uL Normal 2.0-7.7 [facility] Comment on above: Performed By: #### L 500.2500, L100.0100 ####[facility] [address] [place], [address] Basophils/100 WBC (Bld) 0.6 % Normal 0-1 [facility] Comment on above: Performed By: #### L 500.2500, L100.0100 ####[facility] [address] [place], [address] Eosinophils/100 WBC (Bld) 1.6 % Normal 0-5 [facility] Comment on above: Performed By: #### L 500.2500, L100.0100 ####[facility] [address] [place], [address] Erythrocyte distribution width (RBC) [Ratio] 15.7 % High 11.6-14.6 [facility] Comment on above: Performed By: #### L 500.2500, L100.0100 ####[facility] [address] [place], [address] Hematocrit (Bld) [Volume fraction] 26.6 % Low 37-47 [facility] Comment on above: Performed By: #### L 500.2500, L100.0100 ####[facility] [address] [place], [address] Hemoglobin (Bld) [Mass/Vol] 8.8 g/dL Low 12.0-15.0 [facility] Comment on above: Performed By: #### L 500.2500, L100.0100 ####[facility] [address] [place], [address] IG% 0.600 Normal 0.0-0.9 [facility] Comment on above: Result Comment: IG% - Immature Granulocytes (promyelocytes, myelocytes andmetamyelocytes) > 1% indicates that a LEFT SHIFT is Present. Performed By: #### L 500.2500, L100.0100 ####[facility] [address] [place], [address] Lymphocytes/100 WBC (Bld) 24.1 % Normal 19-41 [facility] Comment on above: Performed By: #### L 500.2500, L100.0100 ####[facility] [address] [place], [address] MCH (RBC) [Entitic mass] 37.0 pg High 27.0-32.0 [facility] Comment on above: Performed By: #### L 500.2500, L100.0100 ####[facility] [address] [place], [address] MCHC (RBC) [Mass/Vol] 33.1 g/dL Normal 32-36 [facility] Comment on above: Performed By: #### L 500.2500, L100.0100 ####[facility] [address] [place], [address] MCV (RBC) [Entitic vol] 111.8 fL High 81-99 [facility] Comment on above: Performed By: #### L 500.2500, L100.0100 ####[facility] [address] [place], [address] Monocytes/100 WBC (Bld) 10.1 % High 0-10 [facility] Comment on above: Performed By: #### L 500.2500, L100.0100 ####[facility] [address] [place], [address] Neutrophils/100 WBC (Bld) 63.0 % Normal 47-70 [facility] Comment on above: Performed By: #### L 500.2500, L100.0100 ####[facility] [address] [place], [address] Nucleated RBC (Bld) [#/Vol] 0 10*3/uL Normal 0-5 [facility] Comment on above: Performed By: #### L 500.2500, L100.0100 ####[facility] [address] [place], [address] Platelet mean volume (Bld) [Entitic vol] 10.4 fL Normal 6.2-12.0 [facility] Comment on above: Performed By: #### L 500.2500, L100.0100 ####[facility] [address] [place], [address] Platelets (Bld) [#/Vol] 248 10*3/uL Normal 150-450 [facility] Comment on above: Performed By: #### L 500.2500, L100.0100 ####[facility] [address] [place], [address] RBC (Bld) [#/Vol] 2.38 10*6/uL Low 4.2-5.4 [facility] Comment on above: Performed By: #### L 500.2500, L100.0100 ####[facility] [address] [place], [address] RDW SD 64.2 fl High 35.1-43.9 [facility] Comment on above: Performed By: #### L 500.2500, L100.0100 ####[facility] [address] [place], [address] WBC (Bld) [#/Vol] 5.1 10*3/uL Normal 4.4-11.0 [facility] Comment on above: Performed By: #### L 500.2500, L100.0100 ####[facility] [address] [place], [address] Absolute lymphocyte countOrd ered By: Nela Wallace on 10-21-2024 Lymphocytes Auto (Unsp spec) [#/Vol] 1.47 10*3/uL 0.83-4.51 [facility] Absolute neutrophil countOrd ered By: Nela Wallace on 10-21-2024 Neutrophils (Bld) [#/Vol] 3.0 10*3/uL 2.0-7.7 [facility] Anion gap in Serum or Plasma Ordered By: Nela Wallace on 10-21-2024 Anion gap [Moles/Vol] 10 mmol/L 5-15 [facility] Automated lymphocyte count a s percentage of total leukocytesOrdered By: Nela Wallace on 10-21-2024 Lymphocytes/100 WBC Auto (Unsp spec) 27.2 % -41 [facility] BUN/creatinine ratioOrdered By: Nela Wallace on 10-21-2024 Urea nitrogen/Creatinine [Mass ratio] 23.7 mg/mg High 10- [facility] Basic Metabolic Profile (BMP )on 10-21-2024 BUN/CRE 23.7 RATIO High 10- [facility] Comment on above: Performed By: #### L 500.2500 ####[facility] [address] [place], [address] Calcium [Mass/Vol] 8.5 mg/dL Normal 7.6-11.0 [facility] Comment on above: Performed By: #### L 500.2500 ####[facility] [address] [place], [address] Chloride [Moles/Vol] 103 mmol/L Normal 98-108 [facility] Comment on above: Performed By: #### L 500.2500 ####[facility] [address] [place], [address] CO2 [Moles/Vol] 21.9 mmol/L Normal 21.0-32.0 [facility] Comment on above: Performed By: #### L 500.2500 ####[facility] [address] [place], [address] Creatinine [Mass/Vol] 1.04 mg/dL Normal 0.70-1.20 [facility] Comment on above: Performed By: #### L 500.2500 ####[facility] [address] [place], [address] ECRCL 45.68 ml/min Low 50-250 [facility] Comment on above: Performed By: #### L 500.2500 ####[facility] [address] [place], [address] GAP 10 Normal 5-15 [facility] Comment on above: Performed By: #### L 500.2500 ####[facility] [address] [place], [address] GFR/1.73 sq M.predicted among non-blacks MDRD (S/P/Bld) [Vol rate/Area] 54 mL/min/{1.73_m2} Low >60 [facility] Comment on above: Result Comment: mL/m in/1.73m2 CKD-EPI Creatinine Equation (2020) Performed By: #### L 500.2500 ####[facility] [address] [place], [address] Glucose [Mass/Vol] 86 mg/dL Normal 70-99 [facility] Comment on above: Performed By: #### L 500.2500 ####[facility] [address] [place], [address] Potassium [Moles/Vol] 3.8 mmol/L Normal 3.3-5.1 [facility] Comment on above: Performed By: #### L 500.2500 ####[facility] [address] [place], [address] Sodium [Moles/Vol] 135 mmol/L Normal 133-145 [facility] Comment on above: Performed By: #### L 500.2500 ####[facility] [address] [place], [address] Urea nitrogen [Mass/Vol] 25 mg/dL High 4-19 [facility] Comment on above: Performed By: #### L 500.2500 ####[facility] [address] [place], [address] Basophil percentageOrdered B y: Nela Wallace on 10-21-2024 Basophils/100 WBC (Bld) 0.4 % 0-1 [facility] CBC W/Diff, Automatedon 08-0 Absolute Lymph 1.47 X10 3/uL Normal 0.83-4.51 [facility] Comment on above: Performed By: #### L 100.0100 ####[facility] [address] [place], [address] Absolute Neut 3.0 X10 3/uL Normal 2.0-7.7 [facility] Comment on above: Performed By: #### L 100.0100 ####[facility] [address] [place], [address] Basophils/100 WBC (Bld) 0.4 % Normal 0-1 [facility] Comment on above: Performed By: #### L 100.0100 ####[facility] [address] [place], [address] Eosinophils/100 WBC (Bld) 1.9 % Normal 0-5 [facility] Comment on above: Performed By: #### L 100.0100 ####[facility] [address] [place], [address] Erythrocyte distribution width (RBC) [Ratio] 15.8 % High 11.6-14.6 [facility] Comment on above: Performed By: #### L 100.0100 ####[facility] [address] [place], [address] Hematocrit (Bld) [Volume fraction] 25.5 % Low 37-47 [facility] Comment on above: Performed By: #### L 100.0100 ####[facility] [address] [place], [address] Hemoglobin (Bld) [Mass/Vol] 8.7 g/dL Low 12.0-15.0 [facility] Comment on above: Performed By: #### L 100.0100 ####[facility] [address] [place], [address] IG% 0.600 Normal 0.0-0.9 [facility] Comment on above: Result Comment: IG% - Immature Granulocytes (promyelocytes, myelocytes andmetamyelocytes) > 1% indicates that a LEFT SHIFT is Present. Performed By: #### L 100.0100 ####[facility] [address] [place], [address] Lymphocytes/100 WBC (Bld) 27.2 % Normal 19-41 [facility] Comment on above: Performed By: #### L 100.0100 ####[facility] [address] [place], [address] MCH (RBC) [Entitic mass] 37.8 pg High 27.0-32.0 [facility] Comment on above: Performed By: #### L 100.0100 ####[facility] [address] [place], [address] MCHC (RBC) [Mass/Vol] 34.1 g/dL Normal 32-36 [facility] Comment on above: Performed By: #### L 100.0100 ####[facility] [address] [place], [address] MCV (RBC) [Entitic vol] 110.9 fL High 81-99 [facility] Comment on above: Performed By: #### L 100.0100 ####[facility] [address] [place], [address] Monocytes/100 WBC (Bld) 15.2 % High 0-10 [facility] Comment on above: Performed By: #### L 100.0100 ####[facility] [address] [place], [address] Neutrophils/100 WBC (Bld) 54.7 % Normal 47-70 [facility] Comment on above: Performed By: #### L 100.0100 ####[facility] [address] [place], [address] Nucleated RBC (Bld) [#/Vol] 0 10*3/uL Normal 0-5 [facility] Comment on above: Performed By: #### L 100.0100 ####[facility] [address] [place], [address] Platelet mean volume (Bld) [Entitic vol] 10.8 fL Normal 6.2-12.0 [facility] Comment on above: Performed By: #### L 100.0100 ####[facility] [address] [place], [address] Platelets (Bld) [#/Vol] 224 10*3/uL Normal 150-450 [facility] Comment on above: Performed By: #### L 100.0100 ####[facility] [address] [place], [address] RBC (Bld) [#/Vol] 2.30 10*6/uL Low 4.2-5.4 [facility] Comment on above: Performed By: #### L 100.0100 ####[facility] [address] [place], [address] RDW SD 64.2 fl High 35.1-43.9 [facility] Comment on above: Performed By: #### L 100.0100 ####[facility] [address] [place], [address] WBC (Bld) [#/Vol] 5.4 10*3/uL Normal 4.4-11.0 [facility] Comment on above: Performed By: #### L 100.0100 ####[facility] [address] [place], [address] Carbon dioxide, total [Moles /volume] in Central venous bloodOrdered By: Nela Wallace on 10-21-2024 CO2 [Moles/Vol] 21.9 mmol/L 21.0-32.0 [facility] Chloride assayOrdered By: Bharathi Wallace on 10-21-2024 Chloride [Moles/Vol] 103 mmol/L 98-108 [facility] Eosinophil percentageOrdered By: Nela Wallace on 10-21-2024 Eosinophils/100 WBC (Bld) 1.9 % 0-5 [facility] Erythrocyte distribution wid th ratioOrdered By: Nela Wallace on 10-21-2024 Erythrocyte distribution width (RBC) [Ratio] 15.8 % High 11.6-14.6 [facility] Erythrocyte distribution wid th standard deviationOrdered By: Nela Wallace on 10-21-2024 Erythrocyte distribution width (RBC) [Ratio] 64.2 fl High 35.1-43.9 [facility] Glomerular filtration rate ( GFR) estimation/1.73 sq m using serum, plasma, or whole bOrdered By: Nela Wallace on 10-21-2024 GFR/1.73 sq M.predicted among non-blacks MDRD (S/P/Bld) [Vol rate/Area] 54 mL/min/{1.73_m2} Low >60 [facility] Comment on above: mL/min/1.73m2 CKD-EP I Creatinine Equation (2020) Hematocrit Auto (Bld) [Volum e fraction]Ordered By: Nela Wallace on 10-21-2024 Hematocrit (Bld) [Volume fraction] 25.5 % Low 37-47 [facility] Hemoglobin measurementOrdere d By: Nela Wallace on 10-21-2024 Hemoglobin (Bld) [Mass/Vol] 8.7 g/dL Low 12.0-15.0 [facility] Immature granulocytes/100 WB C Auto (Bld)Ordered By: Nela Wallace on 10-21-2024 Immature granulocytes/100 WBC (Bld) 0.600 % 0.0-0.9 [facility] Comment on above: IG% - Immature Granu locytes (promyelocytes, myelocytes and metamyelocytes) > 1% indicates that a LEFT SHIFT is Present. MCV (mean corpuscular volume ) determinationOrdered By: Nela Wallace on 10-21-2024 MCV (RBC) [Entitic vol] 110.9 fL High 81-99 [facility] Mean corpuscular hemoglobin (MCH) determinationOrdered By: Nela Wallace on 10-21-2024 MCH (RBC) [Entitic mass] 37.8 pg High 27.0-32.0 [facility] Mean corpuscular hemoglobin concentration (MCHC) determinationOrdered By: Nela Wallace on 10-21-2024 MCHC (RBC) [Mass/Vol] 34.1 g/dL 32-36 [facility] Mean platelet volume determi nationOrdered By: Nela Wallace on 10-21-2024 Platelet mean volume (Bld) [Entitic vol] 10.8 fL 6.2-12.0 [facility] Monocyte percentageOrdered B y: Nela Wallace on 10-21-2024 Monocytes/100 WBC (Bld) 15.2 % High 0-10 [facility] Neutrophil percentageOrdered By: Nela Wallace on 10-21-2024 Neutrophils/100 WBC (Bld) 54.7 % 47-70 [facility] Nucleated red blood cell per centageOrdered By: Nela Wallace on 10-21-2024 Nucleated RBC/100 WBC (Bld) [Ratio] 0 % 0-5 [facility] Platelet countOrdered By: Bharathi Wallace on 10-21-2024 Platelets (Bld) [#/Vol] 224 10*3/uL 150-450 [facility] Potassium measurement (mass/ volume)Ordered By: Nela Wallace on 10-21-2024 Potassium (Unsp spec) [Mass/Vol] 3.8 mmol/L 3.3-5.1 [facility] RBC Auto (Bld) [#/Vol]Ordere d By: Nela Wallace on 10-21-2024 RBC (Bld) [#/Vol] 2.30 10*6/uL Low 4.2-5.4 [facility] Serum creatinine measurement (mass/volume)Ordered By: Nela Wallace on 10-21-2024 Creatinine [Mass/Vol] 1.04 mg/dL 0.70-1.20 [facility] Serum glucose measurement (m ass/volume)Ordered By: Nela Wallace on 10-21-2024 Glucose [Mass/Vol] 86 mg/dL 70-99 [facility] Serum or plasma calcium niels urement (mass/volume)Ordered By: Nela Wallace on 10-21-2024 Calcium [Mass/Vol] 8.5 mg/dL 7.6-11.0 [facility] Serum or plasma urea nitroge n measurement (mass/volume)Ordered By: Nela Wallace on 10-21-2024 Urea nitrogen [Mass/Vol] 25 mg/dL High 4-19 [facility] Sodium levelOrdered By: Tracie Wallace on 10-21-2024 Sodium [Moles/Vol] 135 mmol/L 133-145 [facility] White blood cell (WBC) count Ordered By: Nela Wallace on 10-21-2024 WBC (Bld) [#/Vol] 5.4 10*3/uL 4.4-11.0 [facility] Basic Metabolic Profile (BMP )on 10-20-2024 BUN/CRE 17.8 RATIO Normal 10-20 [facility] Comment on above: Performed By: #### L 500.2500 ####[facility] [address] [place], [address] Calcium [Mass/Vol] 8.3 mg/dL Normal 7.6-11.0 [facility] Comment on above: Performed By: #### L 500.2500 ####[facility] [address] [place], [address] Chloride [Moles/Vol] 105 mmol/L Normal 98-108 [facility] Comment on above: Performed By: #### L 500.2500 ####[facility] [address] [place], [address] CO2 [Moles/Vol] 21.4 mmol/L Normal 21.0-32.0 [facility] Comment on above: Performed By: #### L 500.2500 ####[facility] [address] [place], [address] Creatinine [Mass/Vol] 0.86 mg/dL Normal 0.70-1.20 [facility] Comment on above: Performed By: #### L 500.2500 ####[facility] [address] [place], [address] ECRCL 55.24 ml/min Normal 50-250 [facility] Comment on above: Performed By: #### L 500.2500 ####[facility] [address] [place], [address] GAP 10 Normal 5-15 [facility] Comment on above: Performed By: #### L 500.2500 ####[facility] [address] [place], [address] GFR/1.73 sq M.predicted among non-blacks MDRD (S/P/Bld) [Vol rate/Area] 68 mL/min/{1.73_m2} Normal >60 [facility] Comment on above: Result Comment: mL/m in/1.73m2 CKD-EPI Creatinine Equation (2020) Performed By: #### L 500.2500 ####[facility] [address] [place], [address] Glucose [Mass/Vol] 82 mg/dL Normal 70-99 [facility] Comment on above: Performed By: #### L 500.2500 ####[facility] [address] [place], [address] Potassium [Moles/Vol] 3.8 mmol/L Normal 3.3-5.1 [facility] Comment on above: Performed By: #### L 500.2500 ####[facility] [address] [place], [address] Sodium [Moles/Vol] 136 mmol/L Normal 133-145 [facility] Comment on above: Performed By: #### L 500.2500 ####[facility] [address] [place], [address] Urea nitrogen [Mass/Vol] 15 mg/dL Normal 4-19 [facility] Comment on above: Performed By: #### L 500.2500 ####[facility] [address] [place], [address] CBC-Complete Blood Cnt No Di ffon 10-20-2024 Erythrocyte distribution width (RBC) [Ratio] 15.5 % High 11.6-14.6 [facility] Comment on above: Performed By: #### L 100.0500 ####[facility] [address] [place], [address] Hematocrit (Bld) [Volume fraction] 27.0 % Low 37-47 [facility] Comment on above: Performed By: #### L 100.0500 ####[facility] [address] [place], [address] Hemoglobin (Bld) [Mass/Vol] 9.1 g/dL Low 12.0-15.0 [facility] Comment on above: Performed By: #### L 100.0500 ####[facility] [address] [place], [address] MCH (RBC) [Entitic mass] 37.6 pg High 27.0-32.0 [facility] Comment on above: Performed By: #### L 100.0500 ####[facility] [address] [place], [address] MCHC (RBC) [Mass/Vol] 33.7 g/dL Normal 32-36 [facility] Comment on above: Performed By: #### L 100.0500 ####[facility] [address] [place], [address] MCV (RBC) [Entitic vol] 111.6 fL High 81-99 [facility] Comment on above: Performed By: #### L 100.0500 ####[facility] [address] [place], [address] Platelet mean volume (Bld) [Entitic vol] 10.8 fL Normal 6.2-12.0 [facility] Comment on above: Performed By: #### L 100.0500 ####[facility] [address] [place], [address] Platelets (Bld) [#/Vol] 210 10*3/uL Normal 150-450 [facility] Comment on above: Performed By: #### L 100.0500 ####[facility] [address] [place], [address] RBC (Bld) [#/Vol] 2.42 10*6/uL Low 4.2-5.4 [facility] Comment on above: Performed By: #### L 100.0500 ####[facility] [address] [place], [address] RDW SD 64.2 fl High 35.1-43.9 [facility] Comment on above: Performed By: #### L 100.0500 ####[facility] [address] [place], [address] WBC (Bld) [#/Vol] 7.0 10*3/uL Normal 4.4-11.0 [facility] Comment on above: Performed By: #### L 100.0500 ####[facility] [address] [place], [address] Basic Metabolic Profile (BMP )on 10-19-2024 BUN/CRE 16.2 RATIO Normal 10-20 [facility] Comment on above: Performed By: #### L 500.2500, L100.0100 ####[facility] [address] [place], [address] Calcium [Mass/Vol] 8.9 mg/dL Normal 7.6-11.0 [facility] Comment on above: Performed By: #### L 500.2500, L100.0100 ####[facility] [address] [place], [address] Chloride [Moles/Vol] 98 mmol/L Normal 98-108 [facility] Comment on above: Performed By: #### L 500.2500, L100.0100 ####[facility] [address] [place], [address] CO2 [Moles/Vol] 21.9 mmol/L Normal 21.0-32.0 [facility] Comment on above: Performed By: #### L 500.2500, L100.0100 ####[facility] [address] [place], [address] Creatinine [Mass/Vol] 1.02 mg/dL Normal 0.70-1.20 [facility] Comment on above: Performed By: #### L 500.2500, L100.0100 ####[facility] [address] [place], [address] ECRCL 46.57 ml/min Low 50-250 [facility] Comment on above: Performed By: #### L 500.2500, L100.0100 ####[facility] [address] [place], [address] GAP 11 Normal 5-15 [facility] Comment on above: Performed By: #### L 500.2500, L100.0100 ####[facility] [address] [place], [address] GFR/1.73 sq M.predicted among non-blacks MDRD (S/P/Bld) [Vol rate/Area] 55 mL/min/{1.73_m2} Low >60 [facility] Comment on above: Result Comment: mL/m in/1.73m2 CKD-EPI Creatinine Equation (2020) Performed By: #### L 500.2500, L100.0100 ####[facility] [address] [place], [address] Glucose [Mass/Vol] 94 mg/dL Normal 70-99 [facility] Comment on above: Performed By: #### L 500.2500, L100.0100 ####[facility] [address] [place], [address] Potassium [Moles/Vol] 4.1 mmol/L Normal 3.3-5.1 [facility] Comment on above: Performed By: #### L 500.2500, L100.0100 ####[facility] [address] [place], [address] Sodium [Moles/Vol] 131 mmol/L Low 133-145 [facility] Comment on above: Performed By: #### L 500.2500, L100.0100 ####[facility] [address] [place], [address] Urea nitrogen [Mass/Vol] 17 mg/dL Normal 4-19 [facility] Comment on above: Performed By: #### L 500.2500, L100.0100 ####[facility] [address] [place], [address] Bedside Glucoseon 10-19-2024 FINGERSTICK GLU 120 mg/dL High 74-106 [facility] Comment on above: Result Comment: TRACEY SALDAÑA OF PATIENT CARE PER NURSING PROTOCOL Performed By: #### L 501.080 ####[facility] [address] [place], [address] CBC W/Diff, Automatedon 07- Absolute Lymph 1.13 X10 3/uL Normal 0.83-4.51 [facility] Comment on above: Performed By: #### L 100.0100 ####[facility] [address] [place], [address] Absolute Neut 5.2 X10 3/uL Normal 2.0-7.7 [facility] Comment on above: Performed By: #### L 100.0100 ####[facility] [address] [place], [address] Basophils/100 WBC (Bld) 0.3 % Normal 0-1 [facility] Comment on above: Performed By: #### L 100.0100 ####[facility] [address] [place], [address] Eosinophils/100 WBC (Bld) 0.9 % Normal 0-5 [facility] Comment on above: Performed By: #### L 100.0100 ####[facility] [address] [place], [address] Erythrocyte distribution width (RBC) [Ratio] 15.5 % High 11.6-14.6 [facility] Comment on above: Performed By: #### L 100.0100 ####[facility] [address] [place], [address] Hematocrit (Bld) [Volume fraction] 27.6 % Low 37-47 [facility] Comment on above: Performed By: #### L 100.0100 ####[facility] [address] [place], [address] Hemoglobin (Bld) [Mass/Vol] 9.4 g/dL Low 12.0-15.0 [facility] Comment on above: Performed By: #### L 100.0100 ####[facility] [address] [place], [address] IG% 0.600 Normal 0.0-0.9 [facility] Comment on above: Result Comment: IG% - Immature Granulocytes (promyelocytes, myelocytes andmetamyelocytes) > 1% indicates that a LEFT SHIFT is Present. Performed By: #### L 100.0100 ####[facility] [address] [place], [address] Lymphocytes/100 WBC (Bld) 14.4 % Low 19-41 [facility] Comment on above: Performed By: #### L 100.0100 ####[facility] [address] [place], [address] MCH (RBC) [Entitic mass] 37.8 pg High 27.0-32.0 [facility] Comment on above: Performed By: #### L 100.0100 ####[facility] [address] [place], [address] MCHC (RBC) [Mass/Vol] 34.1 g/dL Normal 32-36 [facility] Comment on above: Performed By: #### L 100.0100 ####[facility] [address] [place], [address] MCV (RBC) [Entitic vol] 110.8 fL High 81-99 [facility] Comment on above: Performed By: #### L 100.0100 ####[facility] [address] [place], [address] Monocytes/100 WBC (Bld) 17.1 % High 0-10 [facility] Comment on above: Performed By: #### L 100.0100 ####[facility] [address] [place], [address] Neutrophils/100 WBC (Bld) 66.7 % Normal 47-70 [facility] Comment on above: Performed By: #### L 100.0100 ####[facility] [address] [place], [address] Nucleated RBC (Bld) [#/Vol] 0 10*3/uL Normal 0-5 [facility] Comment on above: Performed By: #### L 100.0100 ####[facility] [address] [place], [address] Platelet mean volume (Bld) [Entitic vol] 11.0 fL Normal 6.2-12.0 [facility] Comment on above: Performed By: #### L 100.0100 ####[facility] [address] [place], [address] Platelets (Bld) [#/Vol] 181 10*3/uL Normal 150-450 [facility] Comment on above: Performed By: #### L 100.0100 ####[facility] [address] [place], [address] RBC (Bld) [#/Vol] 2.49 10*6/uL Low 4.2-5.4 [facility] Comment on above: Performed By: #### L 100.0100 ####[facility] [address] [place], [address] RDW SD 62.7 fl High 35.1-43.9 [facility] Comment on above: Performed By: #### L 100.0100 ####[facility] [address] [place], [address] WBC (Bld) [#/Vol] 7.8 10*3/uL Normal 4.4-11.0 [facility] Comment on above: Performed By: #### L 100.0100 ####[facility] [address] [place], [address] Absolute Neut Normal 2.0-7.7 [facility] Comment on above: Result Comment: Canc elled via OM: Duplicate Order Performed By: #### L 500.2500, L100.0100 ####[facility] [address] [place], [address] HCT Normal 37-47 [facility] Comment on above: Result Comment: Canc elled via OM: Duplicate Order Performed By: #### L 500.2500, L100.0100 ####[facility] [address] [place], [address] HGB Normal 12.0-15.0 [facility] Comment on above: Result Comment: Canc elled via OM: Duplicate Order Performed By: #### L 500.2500, L100.0100 ####[facility] [address] [place], [address] MCH Normal 27.0-32.0 [facility] Comment on above: Result Comment: Canc elled via OM: Duplicate Order Performed By: #### L 500.2500, L100.0100 ####[facility] [address] [place], [address] MCHC Normal 32-36 [facility] Comment on above: Result Comment: Canc elled via OM: Duplicate Order Performed By: #### L 500.2500, L100.0100 ####[facility] [address] [place], [address] MCV Normal 81-99 [facility] Comment on above: Result Comment: Canc elled via OM: Duplicate Order Performed By: #### L 500.2500, L100.0100 ####[facility] [address] [place], [address] NEUT% Normal 47-70 [facility] Comment on above: Result Comment: Canc elled via OM: Duplicate Order Performed By: #### L 500.2500, L100.0100 ####[facility] [address] [place], [address] PLT Normal 150-450 [facility] Comment on above: Result Comment: Canc elled via OM: Duplicate Order Performed By: #### L 500.2500, L100.0100 ####[facility] [address] [place], [address] RBC Normal 4.2-5.4 [facility] Comment on above: Result Comment: Canc elled via OM: Duplicate Order Performed By: #### L 500.2500, L100.0100 ####[facility] [address] [place], [address] RDW CV Normal 11.6-14.6 [facility] Comment on above: Result Comment: Canc elled via OM: Duplicate Order Performed By: #### L 500.2500, L100.0100 ####[facility] [address] [place], [address] RDW SD Normal 35.1-43.9 [facility] Comment on above: Result Comment: Canc elled via OM: Duplicate Order Performed By: #### L 500.2500, L100.0100 ####[facility] [address] [place], [address] WBC Normal 4.4-11.0 [facility] Comment on above: Result Comment: Canerasto elled via OM: Duplicate Order Performed By: #### L 500.2500, L100.0100 ####[facility] [address] [place], [address] Glucose measurement at [facility] deOrdered By: Geo Rodriguez on 10-19-2024 Glucose [Mass/Vol] 120 mg/dL High 74-106 [facility] Comment on above: MANAGEMENT OF PATIEN T CARE PER NURSING PROTOCOL Basic Metabolic Profile (BMP )on 10-18-2024 BUN/CRE 18.0 RATIO Normal 10-20 [facility] Comment on above: Performed By: #### L 500.2500, L100.0100 ####[facility] [address] [place], [address] Calcium [Mass/Vol] 8.5 mg/dL Normal 7.6-11.0 [facility] Comment on above: Performed By: #### L 500.2500, L100.0100 ####[facility] [address] [place], [address] Chloride [Moles/Vol] 99 mmol/L Normal 98-108 [facility] Comment on above: Performed By: #### L 500.2500, L100.0100 ####[facility] [address] [place], [address] CO2 [Moles/Vol] 22.0 mmol/L Normal 21.0-32.0 [facility] Comment on above: Performed By: #### L 500.2500, L100.0100 ####[facility] [address] [place], [address] Creatinine [Mass/Vol] 0.92 mg/dL Normal 0.70-1.20 [facility] Comment on above: Performed By: #### L 500.2500, L100.0100 ####[facility] [address] [place], [address] ECRCL 51.63 ml/min Normal 50-250 [facility] Comment on above: Performed By: #### L 500.2500, L100.0100 ####[facility] [address] [place], [address] GAP 11 Normal 5-15 [facility] Comment on above: Performed By: #### L 500.2500, L100.0100 ####[facility] [address] [place], [address] GFR/1.73 sq M.predicted among non-blacks MDRD (S/P/Bld) [Vol rate/Area] 63 mL/min/{1.73_m2} Normal >60 [facility] Comment on above: Result Comment: mL/m in/1.73m2 CKD-EPI Creatinine Equation (2020) Performed By: #### L 500.2500, L100.0100 ####[facility] [address] [place], [address] Glucose [Mass/Vol] 96 mg/dL Normal 70-99 [facility] Comment on above: Performed By: #### L 500.2500, L100.0100 ####[facility] [address] [place], [address] Potassium [Moles/Vol] 3.7 mmol/L Normal 3.3-5.1 [facility] Comment on above: Performed By: #### L 500.2500, L100.0100 ####[facility] [address] [place], [address] Sodium [Moles/Vol] 133 mmol/L Normal 133-145 [facility] Comment on above: Performed By: #### L 500.2500, L100.0100 ####[facility] [address] [place], [address] Urea nitrogen [Mass/Vol] 17 mg/dL Normal 4-19 [facility] Comment on above: Performed By: #### L 500.2500, L100.0100 ####[facility] [address] [place], [address] CBC W/Diff, Automatedon 07-3 0-2025 Absolute Lymph 0.76 X10 3/uL Low 0.83-4.51 [facility] Comment on above: Performed By: #### L 500.2500, L100.0100 ####[facility] [address] [place], [address] Absolute Neut 5.0 X10 3/uL Normal 2.0-7.7 [facility] Comment on above: Performed By: #### L 500.2500, L100.0100 ####[facility] [address] [place], [address] Basophils/100 WBC (Bld) 0.1 % Normal 0-1 [facility] Comment on above: Performed By: #### L 500.2500, L100.0100 ####[facility] [address] [place], [address] Eosinophils/100 WBC (Bld) 0.4 % Normal 0-5 [facility] Comment on above: Performed By: #### L 500.2500, L100.0100 ####[facility] [address] [place], [address] Erythrocyte distribution width (RBC) [Ratio] 15.6 % High 11.6-14.6 [facility] Comment on above: Performed By: #### L 500.2500, L100.0100 ####[facility] [address] [place], [address] Hematocrit (Bld) [Volume fraction] 28.2 % Low 37-47 [facility] Comment on above: Performed By: #### L 500.2500, L100.0100 ####[facility] [address] [place], [address] Hemoglobin (Bld) [Mass/Vol] 9.4 g/dL Low 12.0-15.0 [facility] Comment on above: Performed By: #### L 500.2500, L100.0100 ####[facility] [address] [place], [address] IG% 0.300 Normal 0.0-0.9 [facility] Comment on above: Result Comment: IG% - Immature Granulocytes (promyelocytes, myelocytes andmetamyelocytes) > 1% indicates that a LEFT SHIFT is Present. Performed By: #### L 500.2500, L100.0100 ####[facility] [address] [place], [address] Lymphocytes/100 WBC (Bld) 11.1 % Low 19-41 [facility] Comment on above: Performed By: #### L 500.2500, L100.0100 ####[facility] [address] [place], [address] MCH (RBC) [Entitic mass] 36.9 pg High 27.0-32.0 [facility] Comment on above: Performed By: #### L 500.2500, L100.0100 ####[facility] [address] [place], [address] MCHC (RBC) [Mass/Vol] 33.3 g/dL Normal 32-36 [facility] Comment on above: Performed By: #### L 500.2500, L100.0100 ####[facility] [address] [place], [address] MCV (RBC) [Entitic vol] 110.6 fL High 81-99 [facility] Comment on above: Performed By: #### L 500.2500, L100.0100 ####[facility] [address] [place], [address] Monocytes/100 WBC (Bld) 14.6 % High 0-10 [facility] Comment on above: Performed By: #### L 500.2500, L100.0100 ####[facility] [address] [place], [address] Neutrophils/100 WBC (Bld) 73.5 % High 47-70 [facility] Comment on above: Performed By: #### L 500.2500, L100.0100 ####[facility] [address] [place], [address] Nucleated RBC (Bld) [#/Vol] 0 10*3/uL Normal 0-5 [facility] Comment on above: Performed By: #### L 500.2500, L100.0100 ####[facility] [address] [place], [address] Platelet mean volume (Bld) [Entitic vol] 10.4 fL Normal 6.2-12.0 [facility] Comment on above: Performed By: #### L 500.2500, L100.0100 ####[facility] [address] [place], [address] Platelets (Bld) [#/Vol] 176 10*3/uL Normal 150-450 [facility] Comment on above: Performed By: #### L 500.2500, L100.0100 ####[facility] [address] [place], [address] RBC (Bld) [#/Vol] 2.55 10*6/uL Low 4.2-5.4 [facility] Comment on above: Performed By: #### L 500.2500, L100.0100 ####[facility] [address] [place], [address] RDW SD 62.7 fl High 35.1-43.9 [facility] Comment on above: Performed By: #### L 500.2500, L100.0100 ####[facility] [address] [place], [address] WBC (Bld) [#/Vol] 6.8 10*3/uL Normal 4.4-11.0 [facility] Comment on above: Performed By: #### L 500.2500, L100.0100 ####[facility] [address] [place], [address] HH, Hemoglobin AND Hematocri ton 10-18-2024 Hematocrit (Bld) [Volume fraction] 28.2 % Low 37-47 [facility] Comment on above: Performed By: #### L 100.0600 ####[facility] [address] [place], [address] Hemoglobin (Bld) [Mass/Vol] 9.5 g/dL Low 12.0-15.0 [facility] Comment on above: Performed By: #### L 100.0600 ####[facility] [address] [place], [address] Ankle min 3 Viewson 10-18-19 25 Ankle min 3 Views Normal [facility] Basic Metabolic Profile (BMP )on 10-17-2024 BUN/CRE 20.7 RATIO High 10-20 [facility] Comment on above: Performed By: #### L 100.0500, L500.2500 ####[facility] [address] [place], [address] Calcium [Mass/Vol] 8.6 mg/dL Normal 7.6-11.0 [facility] Comment on above: Performed By: #### L 100.0500, L500.2500 ####[facility] [address] [place], [address] Chloride [Moles/Vol] 103 mmol/L Normal 98-108 [facility] Comment on above: Performed By: #### L 100.0500, L500.2500 ####[facility] [address] [place], [address] CO2 [Moles/Vol] 20.7 mmol/L Low 21.0-32.0 [facility] Comment on above: Performed By: #### L 100.0500, L500.2500 ####[facility] [address] [place], [address] Creatinine [Mass/Vol] 0.68 mg/dL Low 0.70-1.20 [facility] Comment on above: Performed By: #### L 100.0500, L500.2500 ####[facility] [address] [place], [address] ECRCL 59.38 ml/min Normal 50-250 [facility] Comment on above: Performed By: #### L 100.0500, L500.2500 ####[facility] [address] [place], [address] GAP 12 Normal 5-15 [facility] Comment on above: Performed By: #### L 100.0500, L500.2500 ####[facility] [address] [place], [address] GFR/1.73 sq M.predicted among non-blacks MDRD (S/P/Bld) [Vol rate/Area] 87 mL/min/{1.73_m2} Normal >60 [facility] Comment on above: Result Comment: mL/m in/1.73m2 CKD-EPI Creatinine Equation (2020) Performed By: #### L 100.0500, L500.2500 ####[facility] [address] [place], [address] Glucose [Mass/Vol] 135 mg/dL High 70-99 [facility] Comment on above: Performed By: #### L 100.0500, L500.2500 ####[facility] [address], [address] Potassium [Moles/Vol] 3.9 mmol/L Normal 3.3-5.1 [facility] Comment on above: Performed By: #### L 100.0500, L500.2500 ####[facility] [address] [place], [address] Sodium [Moles/Vol] 136 mmol/L Normal 133-145 [facility] Comment on above: Performed By: #### L 100.0500, L500.2500 ####[facility] [address] [place], [address] Urea nitrogen [Mass/Vol] 14 mg/dL Normal 4-19 [facility] Comment on above: Performed By: #### L 100.0500, L500.2500 ####[facility] [address] [place], [address] CBC-Complete Blood Cnt No Di ffon 10-17-2024 Erythrocyte distribution width (RBC) [Ratio] 15.9 % High 11.6-14.6 [facility] Comment on above: Performed By: #### L 100.0500, L500.2500 ####[facility] [address] [place], [address] Hematocrit (Bld) [Volume fraction] 30.5 % Low 37-47 [facility] Comment on above: Performed By: #### L 100.0500, L500.2500 ####[facility] [address] [place], [address] Hemoglobin (Bld) [Mass/Vol] 10.2 g/dL Low 12.0-15.0 [facility] Comment on above: Performed By: #### L 100.0500, L500.2500 ####[facility] [address] [place], [address] MCH (RBC) [Entitic mass] 37.2 pg High 27.0-32.0 [facility] Comment on above: Performed By: #### L 100.0500, L500.2500 ####[facility] [address] [place], [address] MCHC (RBC) [Mass/Vol] 33.4 g/dL Normal 32-36 [facility] Comment on above: Performed By: #### L 100.0500, L500.2500 ####[facility] [address] [place], [address] MCV (RBC) [Entitic vol] 111.3 fL High 81-99 [facility] Comment on above: Performed By: #### L 100.0500, L500.2500 ####[facility] [address] [place], [address] Platelet mean volume (Bld) [Entitic vol] 10.6 fL Normal 6.2-12.0 [facility] Comment on above: Performed By: #### L 100.0500, L500.2500 ####[facility] [address] [place], [address] Platelets (Bld) [#/Vol] 176 10*3/uL Normal 150-450 [facility] Comment on above: Performed By: #### L 100.0500, L500.2500 ####[facility] [address] [place], [address] RBC (Bld) [#/Vol] 2.74 10*6/uL Low 4.2-5.4 [facility] Comment on above: Performed By: #### L 100.0500, L500.2500 ####[facility] [address] [place], [address] RDW SD 65.1 fl High 35.1-43.9 [facility] Comment on above: Performed By: #### L 100.0500, L500.2500 ####[facility] [address] [place], [address] WBC (Bld) [#/Vol] 7.1 10*3/uL Normal 4.4-11.0 [facility] Comment on above: Performed By: #### L 100.0500, L500.2500 ####[facility] [address] [place], [address] Extremity Lower without Cont raon 10-17-2024 Extremity Lower without Contra Normal [facility] Bedside Glucoseon 10-16-2024 FINGERSTICK GLU 113 mg/dL High 74-106 [facility] Comment on above: Result Comment: TRACEY SALDAÑA OF PATIENT CARE PER NURSING PROTOCOL Performed By: #### L 501.080 ####[facility] [address] [place], [address] Consultation - Hospitaliston 10-16-2024 Consultation - Hospitalist Normal [facility] Knee 1 or 2 Viewson 10-17-19 25 Knee 1 or 2 Views Normal [facility] Knee 1 or 2 Views Normal [facility] MR/POSTOP.ANEon 10-16-2024 MR/POSTOP.ANE Normal [facility] MR/ONMLNHGM5at 10-16-2024 MR/POSTOPAN2 Normal [facility] Operative Reporton 5 Operative Report Normal [facility] MRSA/SAID NASAL SCREENon MRSA+SAID SCRN Negative Normal [facility] Comment on above: Performed By: #### M 100.651 ####[facility] [address] [place], [address] Absolute lymphocyte countOrd ered By: Carolyn Ruvalcaba on 10-11-2024 Lymphocytes Auto (Unsp spec) [#/Vol] 1.13 10*3/uL 0.83-4.51 [facility] Absolute neutrophil countOrd ered By: Carolynmilka NicolePeg on 10-11-2024 Neutrophils (Bld) [#/Vol] 2.1 10*3/uL 2.0-7.7 [facility] Anion gap in Serum or Plasma Ordered By: Carolyn Ruvalcaba on 10-11-2024 Anion gap [Moles/Vol] 13 mmol/L 5-15 [facility] Automated lymphocyte count a s percentage of total leukocytesOrdered By: Carolyn Ruvalcaba on 10-11-2024 Lymphocytes/100 WBC Auto (Unsp spec) 30.5 % 19- [facility] BUN/creatinine ratioOrdered By: Carolyn Ruvalcaba on 10-11-2024 Urea nitrogen/Creatinine [Mass ratio] 14.2 mg/mg 10-20 [facility] Basophil percentageOrdered B y: Carolyn Ruvalcaba on 10-11-2024 Basophils/100 WBC (Bld) 0.3 % 0-1 [facility] Bilirubin, totalOrdered By: Carolyn Ruvalcaba on 10-11-2024 Bilirubin [Mass/Vol] 0.40 mg/dL 0.00-1.30 [facility] Blood manual differential co mment interpretation (narrative result)Ordered By: Carolyn Ruvalcaba on 10-11-2024 Manual differential comment Jack (Bld) [Interp] SCANNED [facility] Blood polychromasia detectio n by light microscopyOrdered By: Carolyn Ruvalcaba on 10-11-2024 Polychromasia LM Ql (Bld) 1+ [facility] CBC W/Diff, Automatedon 09-20 Anisocytosis Ql (Bld) 1+ Normal [facility] Comment on above: Performed By: #### L 100.0100, L500.4050 ####[facility] [address] [place], [address] POLYCHROMASIA 1+ Normal [facility] Comment on above: Performed By: #### L 100.0100, L500.4050 ####[facility] [address] [place], [address] PLT EST ADEQUATE Normal ADEQ [facility] Comment on above: Performed By: #### L 100.0100, L500.4050 ####[facility] [address] [place], [address] SMEAR COMMENT SCANNED Normal [facility] Comment on above: Performed By: #### L 100.0100, L500.4050 ####[facility] [address] [place], [address] Carbon dioxide, total [Moles /volume] in Central venous bloodOrdered By: Carolyn Ruvalcaba on 10-11-2024 CO2 [Moles/Vol] 21.4 mmol/L 21.0-32.0 [facility] Chloride assayOrdered By: Ke Ruvalcaba on 10-11-2024 Chloride [Moles/Vol] 102 mmol/L 98-108 [facility] Comprehensive Metabolic Prof ilon 10-11-2024 Albumin [Mass/Vol] 4.0 g/dL Normal 3.4-4.8 [facility] Comment on above: Order Comment: CC: C MP CBCD TO DR RODRIGUEZ Performed By: #### L 100.0100, L500.4050 ####[facility] [address] [place], [address] Albumin/Globulin [Mass ratio] 1.4 {ratio} Normal 0.9-2.4 [facility] Comment on above: Order Comment: CC: C MP CBCD TO DR RODRIGUEZ Performed By: #### L 100.0100, L500.4050 ####[facility] [address] [place], [address] ALK PHOS 82 U/L Normal 35-104 [facility] Comment on above: Order Comment: CC: C MP CBCD TO DR RODRIGUEZ Performed By: #### L 100.0100, L500.4050 ####[facility] [address] [place], [address] ALT [Catalytic activity/Vol] 14 U/L Normal <=34 [facility] Comment on above: Order Comment: CC: C MP CBCD TO DR RODRIGUEZ Performed By: #### L 100.0100, L500.4050 ####[facility] [address] [place], [address] AST [Catalytic activity/Vol] 22 U/L Normal <=31 [facility] Comment on above: Order Comment: CC: C MP CBCD TO DR RODRIGUEZ Performed By: #### L 100.0100, L500.4050 ####[facility] [address] [place], [address] Bilirubin [Mass/Vol] 0.40 mg/dL Normal 0.00-1.30 [facility] Comment on above: Order Comment: CC: C MP CBCD TO DR RODRIGUEZ Performed By: #### L 100.0100, L500.4050 ####[facility] [address] [place], [address] BUN/CRE 14.2 RATIO Normal 10-20 [facility] Comment on above: Order Comment: CC: C MP CBCD TO DR RODRIGUEZ Performed By: #### L 100.0100, L500.4050 ####[facility] [address] [place], [address] Calcium [Mass/Vol] 9.3 mg/dL Normal 7.6-11.0 [facility] Comment on above: Order Comment: CC: C MP CBCD TO DR RODRIGUEZ Performed By: #### L 100.0100, L500.4050 ####[facility] [address] [place], [address] Chloride [Moles/Vol] 102 mmol/L Normal 98-108 [facility] Comment on above: Order Comment: CC: C MP CBCD TO DR RODRIGUEZ Performed By: #### L 100.0100, L500.4050 ####[facility] [address] [place], [address] CO2 [Moles/Vol] 21.4 mmol/L Normal 21.0-32.0 [facility] Comment on above: Order Comment: CC: C MP CBCD TO DR RODRIGUEZ Performed By: #### L 100.0100, L500.4050 ####[facility] [address] [place], [address] Creatinine [Mass/Vol] 1.08 mg/dL Normal 0.70-1.20 [facility] Comment on above: Order Comment: CC: C MP CBCD TO DR RODRIGUEZ Performed By: #### L 100.0100, L500.4050 ####[facility] [address] [place], [address] ECRCL 44.99 ml/min Low 50-250 [facility] Comment on above: Order Comment: CC: C MP CBCD TO DR RODRIGUEZ Performed By: #### L 100.0100, L500.4050 ####[facility] [address] [place], [address] GAP 13 Normal 5-15 [facility] Comment on above: Order Comment: CC: C MP CBCD TO DR RODRIGUEZ Performed By: #### L 100.0100, L500.4050 ####[facility] [address] [place], [address] GFR/1.73 sq M.predicted among non-blacks MDRD (S/P/Bld) [Vol rate/Area] 52 mL/min/{1.73_m2} Low >60 [facility] Comment on above: Order Comment: CC: C MP CBCD TO DR RODRIGUEZ Result Comment: mL/m in/1.73m2 CKD-EPI Creatinine Equation (2020) Performed By: #### L 100.0100, L500.4050 ####[facility] [address] [place], [address] Globulin (S) [Mass/Vol] 2.9 g/dL Normal 2.2-4.2 [facility] Comment on above: Order Comment: CC: C MP CBCD TO DR RODRIGUEZ Performed By: #### L 100.0100, L500.4050 ####[facility] [address] [place], [address] Glucose [Mass/Vol] 129 mg/dL High 70-99 [facility] Comment on above: Order Comment: CC: C MP CBCD TO DR RODRIGUEZ Performed By: #### L 100.0100, L500.4050 ####[facility] [address] [place], [address] Potassium [Moles/Vol] 4.1 mmol/L Normal 3.3-5.1 [facility] Comment on above: Order Comment: CC: C MP CBCD TO DR RODRIGUEZ Performed By: #### L 100.0100, L500.4050 ####[facility] [address] [place], [address] Sodium [Moles/Vol] 136 mmol/L Normal 133-145 [facility] Comment on above: Order Comment: CC: C MP CBCD TO DR RODRIGUEZ Performed By: #### L 100.0100, L500.4050 ####[facility] [address] [place], [address] T PROT 6.9 g/dL Normal 5.9-8.4 [facility] Comment on above: Order Comment: CC: C MP CBCD TO DR RODRIGUEZ Performed By: #### L 100.0100, L500.4050 ####[facility] [address] [place], [address] Urea nitrogen [Mass/Vol] 15 mg/dL Normal 4-19 [facility] Comment on above: Order Comment: CC: C MP CBCD TO DR RODRIGUEZ Performed By: #### L 100.0100, L500.4050 ####[facility] [address] [place], [address] Eosinophil percentageOrdered By: Carolyn Ruvalcaba on 10-11-2024 Eosinophils/100 WBC (Bld) 1.1 % 0-5 [facility] Erythrocyte distribution wid th ratioOrdered By: Carolyn Ruvalcaba on 10-11-2024 Erythrocyte distribution width (RBC) [Ratio] 16.2 % High 11.6-14.6 [facility] Erythrocyte distribution wid th standard deviationOrdered By: Carolyn Ruvalcaba on 10-11-2024 Erythrocyte distribution width (RBC) [Ratio] 65.8 fl High 35.1-43.9 [facility] Glomerular filtration rate ( GFR) estimation/1.73 sq m using serum, plasma, or whole bOrdered By: Carolyn Ruvalcaba on 10-11-2024 GFR/1.73 sq M.predicted among non-blacks MDRD (S/P/Bld) [Vol rate/Area] 52 mL/min/{1.73_m2} Low >60 [facility] Comment on above: mL/min/1.73m2 CKD-EP I Creatinine Equation (2020) Hematocrit Auto (Bld) [Volum e fraction]Ordered By: Carolyn Ruvalcaba on 10-11-2024 Hematocrit (Bld) [Volume fraction] 36.1 % Low 37-47 [facility] Hemoglobin measurementOrdere d By: Carolyn Ruvalcaba on 10-11-2024 Hemoglobin (Bld) [Mass/Vol] 12.1 g/dL 12.0-15.0 [facility] Immature granulocytes/100 WB C Auto (Bld)Ordered By: Carolyn Peg on 10-11-2024 Immature granulocytes/100 WBC (Bld) 0.500 % 0.0-0.9 [facility] Comment on above: IG% - Immature Granu locytes (promyelocytes, myelocytes and metamyelocytes) > 1% indicates that a LEFT SHIFT is Present. Laboratory - Chemistry and C hemistry - challengeOrdered By: Carolyn Ruvalcaba on 10-11-2024 AST [Catalytic activity/Vol] 22 U/L <32 [facility] Laboratory - Hematology and Cell countsOrdered By: Carolyn Peg on 10-11-2024 Anisocytosis Ql (Bld) 1+ [facility] MCV (mean corpuscular volume ) determinationOrdered By: Carolyn Ruvalcaba on 10-11-2024 MCV (RBC) [Entitic vol] 110.7 fL High 81-99 [facility] MRSA screenOrdered By: Az Rodriguez on 10-11-2024 MRSA DNA JANY+probe Ql (Unsp spec) [facility] Mean corpuscular hemoglobin (MCH) determinationOrdered By: Carolyn NicolePeg on 10-11-2024 MCH (RBC) [Entitic mass] 37.1 pg High 27.0-32.0 [facility] Mean corpuscular hemoglobin concentration (MCHC) determinationOrdered By: Carolyn NicolePeg on 10-11-2024 MCHC (RBC) [Mass/Vol] 33.5 g/dL 32-36 [facility] Mean platelet volume determi nationOrdered By: Carolyn NicolePeg on 10-11-2024 Platelet mean volume (Bld) [Entitic vol] 10.3 fL 6.2-12.0 [facility] Monocyte percentageOrdered B y: Carolyn Ruvalcaba on 10-11-2024 Monocytes/100 WBC (Bld) 10.3 % High 0-10 [facility] Neutrophil percentageOrdered By: Carolyn Ruvalcaba on 10-11-2024 Neutrophils/100 WBC (Bld) 57.3 % 47-70 [facility] No Panel InformationOrdered By: Carolyn Ruvalcaba on 10-11-2024 1+ [facility] 22 U/L <32 [facility] Nucleated red blood cell per centageOrdered By: Carolyn Ruvalcaba on 10-11-2024 Nucleated RBC/100 WBC (Bld) [Ratio] 0 % 0-5 [facility] Oncology Visit Reporton 09-20 Oncology Visit Report Normal [facility] Platelet countOrdered By: Ty ra Peg on 10-11-2024 Platelets (Bld) [#/Vol] 244 10*3/uL 150-450 [facility] Platelet estimateOrdered By: Carolyn Ruvalcaba on 10-11-2024 Platelets LM Ql (Bld) ADEQUATE ADEQ [facility] Potassium measurement (mass/ volume)Ordered By: Carolyn Ruvalcaba on 10-11-2024 Potassium (Unsp spec) [Mass/Vol] 4.1 mmol/L 3.3-5.1 [facility] RBC Auto (Bld) [#/Vol]Ordere d By: Carolyn NicolePeg on 10-11-2024 RBC (Bld) [#/Vol] 3.26 10*6/uL Low 4.2-5.4 [facility] Serum creatinine measurement (mass/volume)Ordered By: Carolyn Ruvalcaba on 10-11-2024 Creatinine [Mass/Vol] 1.08 mg/dL 0.70-1.20 [facility] Serum globulin measurementOr dered By: Carolyn Ruvalcaba on 10-11-2024 Globulin (S) [Mass/Vol] 2.9 g/dL 2.2-4.2 [facility] Serum glucose measurement (m ass/volume)Ordered By: Carolyn Ruvalcaba on 10-11-2024 Glucose [Mass/Vol] 129 mg/dL High 70-99 [facility] Serum or plasma alanine bey otransferase (ALT) measurementOrdered By: Carolyn Ruvalcaba on 10-11-2024 ALT [Catalytic activity/Vol] 14 U/L <35 [facility] Serum or plasma albumin niels urement (mass/volume)Ordered By: Carolyn Ruvalcaba on 10-11-2024 Albumin [Mass/Vol] 4.0 g/dL 3.4-4.8 [facility] Serum or plasma albumin/glob ulin mass ratioOrdered By: Carolyn Ruvalcaba on 10-11-2024 Albumin/Globulin [Mass ratio] 1.4 {ratio} 0.9-2.4 [facility] Serum or plasma alkaline victor hugo sphatase measurementOrdered By: Carolyn Ruvalcaba 10-11-2024 ALP [Catalytic activity/Vol] 82 U/L 35-104 [facility] Serum or plasma calcium niels urement (mass/volume)Ordered By: Carolyn Ruvalcaba 10-11-2024 Calcium [Mass/Vol] 9.3 mg/dL 7.6-11.0 [facility] Serum or plasma urea nitroge n measurement (mass/volume)Ordered By: Carolyn Ruvalcaba 10-11-2024 Urea nitrogen [Mass/Vol] 15 mg/dL 4-19 [facility] Sodium levelOrdered By: Carolyn Ruvalcaba on 10-11-2024 Sodium [Moles/Vol] 136 mmol/L 133-145 [facility] Total proteinOrdered By: Nayan Ruvalcaba on 10-11-2024 Protein [Mass/Vol] 6.9 g/dL 5.9-8.4 [facility] White blood cell (WBC) count Ordered By: Carolyn Ruvalcaba on 10-11-2024 WBC (Bld) [#/Vol] 3.7 10*3/uL Low 4.4-11.0 [facility] MR/PAT.ANEon 10-05-2024 MR/PAT.ANE Normal [facility] Cardiology Visit Reporton Cardiology Visit Report Normal [facility] Electrocardiogram reportOrde red By: Omero Armas on 08-03-2024 EKG study [facility] Cardiovascular Services [address] [place] [address] 12 Lead EKG 08/01/24 1400 MR#: [id number] Acct: [id number] Name: BERNICE HASSAN Rep #:[id number] : 1945 79 From: Omero betancur MD Attending Dr: Dr. Dago Emery MD Status: REG CLI Ordering Dr: Dago Emery MD Date: Location: [facility] Sex: F C Admitted: Test Reason [...] effect Abnormal ECG Confirmed by Omero Armas ([id number]), society editor BONY SANCHEZ ([id number]) on 08/03/2024 10:09:09 AM Referred By: Dago Emery Confirmed By: Omero Armas 08/03/24 1009 Date _ Omero Armas MD CC: Dr. Dago Emery MD ~ Signed [facility] Other Phone: MRSA/SAID NASAL SCREENon MRSA+SAID SCRN Reason for Exam: PRE OP MRSA MRSA Negative S. AUREUS S. aureus Negative Normal [facility] Comment on above: Performed By: #### M 100.651, L501.1800 ####[facility] [address] [place], [address] 12 Lead EKGon 08-01-2024 12 Lead EKG Normal [facility] Extremity Lower without Cont raon 08-01-2024 Extremity Lower without Contra Normal [facility] MR/PAT.ANEon 08-01-2024 MR/PAT.ANE Normal [facility] Activated partial thrombopla stin time (aPTT) in platelet poor plasma by coagulation aOrdered By: Dago Emery on 07-31-2024 aPTT Coag (PPP) [Time] 26.1 s 24.1-36.2 [facility] Albumin, Serumon 07-31-2024 Albumin [Mass/Vol] 3.9 g/dL Normal 3.4-4.8 [facility] Comment on above: Performed By: #### M 100.651, L501.1800 ####[facility] [address] [place], [address] Bilirubin, totalOrdered By: Dago Emery on 07-31-2024 Bilirubin [Mass/Vol] 0.42 mg/dL 0.00-1.30 [facility] Comprehensive Metabolic Prof ilon 07-31-2024 Albumin [Mass/Vol] 4.0 g/dL Normal 3.4-4.8 [facility] Comment on above: Performed By: #### L 300.4310, L500.4050, L300.3900, L506.1001 ####[facility] [address] [place], [address] Albumin/Globulin [Mass ratio] 1.6 {ratio} Normal 0.9-2.4 [facility] Comment on above: Performed By: #### L 300.4310, L500.4050, L300.3900, L506.1001 ####[facility] [address] [place], [address] ALK PHOS 92 U/L Normal 35-104 [facility] Comment on above: Performed By: #### L 300.4310, L500.4050, L300.3900, L506.1001 ####[facility] [address] [place], [address] ALT [Catalytic activity/Vol] 14 U/L Normal <=34 [facility] Comment on above: Performed By: #### L 300.4310, L500.4050, L300.3900, L506.1001 ####[facility] [address] [place], [address] AST [Catalytic activity/Vol] 22 U/L Normal <=31 [facility] Comment on above: Performed By: #### L 300.4310, L500.4050, L300.3900, L506.1001 ####[facility] [address], [address] Bilirubin [Mass/Vol] 0.42 mg/dL Normal 0.00-1.30 [facility] Comment on above: Performed By: #### L 300.4310, L500.4050, L300.3900, L506.1001 ####[facility] [address] [place], [address] BUN/CRE 19.1 RATIO Normal 10-20 [facility] Comment on above: Performed By: #### L 300.4310, L500.4050, L300.3900, L506.1001 ####[facility] [address] [place], [address] Calcium [Mass/Vol] 9.5 mg/dL Normal 7.6-11.0 [facility] Comment on above: Performed By: #### L 300.4310, L500.4050, L300.3900, L506.1001 ####[facility] [address] [place], [address] Chloride [Moles/Vol] 105 mmol/L Normal 98-108 [facility] Comment on above: Performed By: #### L 300.4310, L500.4050, L300.3900, L506.1001 ####[facility] [address] [place], [address] CO2 [Moles/Vol] 23.0 mmol/L Normal 21.0-32.0 [facility] Comment on above: Performed By: #### L 300.4310, L500.4050, L300.3900, L506.1001 ####[facility] [address] [place], [address] Creatinine [Mass/Vol] 0.97 mg/dL Normal 0.70-1.20 [facility] Comment on above: Performed By: #### L 300.4310, L500.4050, L300.3900, L506.1001 ####[facility] [address] [place], [address] GAP 12 Normal 5-15 [facility] Comment on above: Performed By: #### L 300.4310, L500.4050, L300.3900, L506.1001 ####[facility] [address] [place], [address] GFR/1.73 sq M.predicted among non-blacks MDRD (S/P/Bld) [Vol rate/Area] 59 mL/min/{1.73_m2} Low >60 [facility] Comment on above: Result Comment: mL/m in/1.73m2 CKD-EPI Creatinine Equation (2020) Performed By: #### L 300.4310, L500.4050, L300.3900, L506.1001 ####[facility] [address] [place], [address] Globulin (S) [Mass/Vol] 2.4 g/dL Normal 2.2-4.2 [facility] Comment on above: Performed By: #### L 300.4310, L500.4050, L300.3900, L506.1001 ####[facility] [address] [place], [address] Glucose [Mass/Vol] 127 mg/dL High 70-99 [facility] Comment on above: Performed By: #### L 300.4310, L500.4050, L300.3900, L506.1001 ####[facility] [address] [place], [address] Potassium [Moles/Vol] 4.5 mmol/L Normal 3.3-5.1 [facility] Comment on above: Performed By: #### L 300.4310, L500.4050, L300.3900, L506.1001 ####[facility] [address] [place], [address] Sodium [Moles/Vol] 139 mmol/L Normal 133-145 [facility] Comment on above: Performed By: #### L 300.4310, L500.4050, L300.3900, L506.1001 ####[facility] [address] [place], [address] T PROT 6.4 g/dL Normal 5.9-8.4 [facility] Comment on above: Performed By: #### L 300.4310, L500.4050, L300.3900, L506.1001 ####[facility] [address] [place], [address] Urea nitrogen [Mass/Vol] 19 mg/dL Normal 4-19 [facility] Comment on above: Performed By: #### L 300.4310, L500.4050, L300.3900, L506.1001 ####[facility] [address] [place], [address] International normalized rat io (INR) calculationOrdered By: Dago Emery on 07-31-2024 INR Coag (Bld) [Relative time] 0.9 {INR} [facility] Laboratory - Chemistry and C hemistry - challengeOrdered By: Dago Emery on 07-31-2024 AST [Catalytic activity/Vol] 22 U/L <32 [facility] MRSA screenOrdered By: Az Rodriguez on 07-31-2024 MRSA DNA JANY+probe Ql (Unsp spec) [facility] Magnesiumon 07-31-2024 Magnesium [Mass/Vol] 2.3 mg/dL High 1.5-2.2 [facility] Comment on above: Performed By: #### L 501.5200, L501.9520 ####[facility] [address] [place], [address] Magnesium measurement (mass/ volume)Ordered By: Jg Pandey on 07-31-2024 Magnesium (Unsp spec) [Mass/Vol] 2.3 mg/dL High 1.5-2.2 [facility] No Panel InformationOrdered By: Dago Emery on 07-31-2024 22 U/L <32 [facility] Partial Thromboplast Timeon 07-31-2024 aPTT Coag (Bld) [Time] 26.1 s Normal 24.1-36.2 [facility] Comment on above: Performed By: #### L 300.4310, L500.4050, L300.3900, L506.1001 ####[facility] [address] [place], [address] Prothrombin Time w/INRon INR Coag (PPP) [Relative time] 0.9 {INR} Normal [facility] Comment on above: Performed By: #### L 300.4310, L500.4050, L300.3900, L506.1001 ####[facility] [address] [place], [address] PT Coag (PPP) [Time] 12.6 s Normal 11.7-14.9 [facility] Comment on above: Performed By: #### L 300.4310, L500.4050, L300.3900, L506.1001 ####[facility] [address] [place], [place], [id number] Prothrombin timeOrdered By: Dago Emery on 07-31-2024 PT Coag (PPP) [Time] 12.6 s 11.7-14.9 [facility] Serum globulin measurementOr dered By: Dago Emery on 07-31-2024 Globulin (S) [Mass/Vol] 2.4 g/dL 2.2-4.2 [facility] Serum or plasma alanine bey otransferase (ALT) measurementOrdered By: Dago Emery on 07-31-2024 ALT [Catalytic activity/Vol] 14 U/L <35 [facility] Serum or plasma albumin niels urement (mass/volume)Ordered By: Dago Emery on 07-31-2024 Albumin [Mass/Vol] 4.0 g/dL 3.4-4.8 [facility] Serum or plasma albumin/glob ulin mass ratioOrdered By: Dago Emery on 07-31-2024 Albumin/Globulin [Mass ratio] 1.6 {ratio} 0.9-2.4 [facility] Serum or plasma alkaline victor hugo sphatase measurementOrdered By: Dago Emery 07-31-2024 ALP [Catalytic activity/Vol] 92 U/L 35-104 [facility] TSH DL <= 0.005 mIU/L QnOrde red By: Jg Pandey on 07-31-2024 TSH Qn 1.470 uIU/mL 0.300-4.20 0 [facility] Thyroid Stim Hormone (TSH)on 07-31-2024 TSH 1.470 uIU/mL Normal 0.300-4.20 0 [facility] Comment on above: Performed By: #### L 501.5200, L501.9508 ####[facility] [address] [place], [place], [id number] Total proteinOrdered By: Dago Emery on 07-31-2024 Protein [Mass/Vol] 6.4 g/dL 5.9-8.4 [facility] Vitamin D,25 Hydroxyon 07-31 Vitamin D 25-OH 18.9 ng/mL Low 30-100 [facility] Comment on above: Result Comment: [place] min D StatusDeficiency: <20 ng/mL (50nmol/L)Insufficiency: 20-30 ng/mL (50-75 nmol/L)Sufficiency: 30-100 ng/mL (75-250 nmol/L)Toxicity: >100 ng/mL (>250 nmol/L) Performed By: #### L 300.4310, L500.4050, L300.3900, L506.1001 ####[facility] [address] [place], [place], [id number] Absolute lymphocyte countOrd ered By: [facility] on 07-10-2024 Lymphocytes Auto (Unsp spec) [#/Vol] 1.19 10*3/uL 0.83-4.51 [facility] Absolute neutrophil countOrd ered By: [facility] on 07-10-2024 Neutrophils (Bld) [#/Vol] 3.7 10*3/uL 2.0-7.7 [facility] Anion gap in Serum or Plasma Ordered By: [facility] on 07-10-2024 Anion gap [Moles/Vol] 10 mmol/L 5-15 [facility] Automated lymphocyte count a s percentage of total leukocytesOrdered By: [facility] on 07-10-2024 Lymphocytes/100 WBC Auto (Unsp spec) 22.0 % 19-41 [facility] BUN/creatinine ratioOrdered By: [facility] on 07-10-2024 Urea nitrogen/Creatinine [Mass ratio] 20.2 mg/mg High 10-20 [facility] Basophil percentageOrdered B y: [facility] on 07-10-2024 Basophils/100 WBC (Bld) 0.4 % 0-1 [facility] Bilirubin, totalOrdered By: [facility] on 07-10-2024 Bilirubin [Mass/Vol] 0.40 mg/dL 0.00-1.30 [facility] CBC W/Diff, Automatedon - Absolute Lymph 1.19 X10 3/uL Normal 0.83-4.51 [facility] Comment on above: Performed By: #### L 100.0100, L500.4050 ####[facility] [address] [place], [address] Absolute Neut 3.7 X10 3/uL Normal 2.0-7.7 [facility] Comment on above: Performed By: #### L 100.0100, L500.4050 ####[facility] [address] [place], [address] Basophils/100 WBC (Bld) 0.4 % Normal 0-1 [facility] Comment on above: Performed By: #### L 100.0100, L500.4050 ####[facility] [address] [place], [address] Eosinophils/100 WBC (Bld) 1.3 % Normal 0-5 [facility] Comment on above: Performed By: #### L 100.0100, L500.4050 ####[facility] [address] [place], [address] Erythrocyte distribution width (RBC) [Ratio] 14.9 % High 11.6-14.6 [facility] Comment on above: Performed By: #### L 100.0100, L500.4050 ####[facility] [address] [place], [address] Hematocrit (Bld) [Volume fraction] 38.9 % Normal 37-47 [facility] Comment on above: Performed By: #### L 100.0100, L500.4050 ####[facility] [address] [place], [address] Hemoglobin (Bld) [Mass/Vol] 13.0 g/dL Normal 12.0-15.0 [facility] Comment on above: Performed By: #### L 100.0100, L500.4050 ####[facility] [address] [place], [address] IG% 0.400 Normal 0.0-0.9 [facility] Comment on above: Result Comment: IG% - Immature Granulocytes (promyelocytes, myelocytes andmetamyelocytes) > 1% indicates that a LEFT SHIFT is Present. Performed By: #### L 100.0100, L500.4050 ####[facility] [address] [place], [address] Lymphocytes/100 WBC (Bld) 22.0 % Normal 19-41 [facility] Comment on above: Performed By: #### L 100.0100, L500.4050 ####[facility] [address] [place], [address] MCH (RBC) [Entitic mass] 36.6 pg High 27.0-32.0 [facility] Comment on above: Performed By: #### L 100.0100, L500.4050 ####[facility] [address] [place], [address] MCHC (RBC) [Mass/Vol] 33.4 g/dL Normal 32-36 [facility] Comment on above: Performed By: #### L 100.0100, L500.4050 ####[facility] [address] [place], [address] MCV (RBC) [Entitic vol] 109.6 fL High 81-99 [facility] Comment on above: Performed By: #### L 100.0100, L500.4050 ####[facility] [address] [place], [address] Monocytes/100 WBC (Bld) 8.5 % Normal 0-10 [facility] Comment on above: Performed By: #### L 100.0100, L500.4050 ####[facility] [address] [place], [address] Neutrophils/100 WBC (Bld) 67.4 % Normal 47-70 [facility] Comment on above: Performed By: #### L 100.0100, L500.4050 ####[facility] [address] [place], [address] Nucleated RBC (Bld) [#/Vol] 0 10*3/uL Normal 0-5 [facility] Comment on above: Performed By: #### L 100.0100, L500.4050 ####[facility] [address] [place], [address] Platelet mean volume (Bld) [Entitic vol] 10.9 fL Normal 6.2-12.0 [facility] Comment on above: Performed By: #### L 100.0100, L500.4050 ####[facility] [address] [place], [address] Platelets (Bld) [#/Vol] 252 10*3/uL Normal 150-450 [facility] Comment on above: Performed By: #### L 100.0100, L500.4050 ####[facility] [address] [place], [address] RBC (Bld) [#/Vol] 3.55 10*6/uL Low 4.2-5.4 [facility] Comment on above: Performed By: #### L 100.0100, L500.4050 ####[facility] [address] [place], [address] RDW SD 60.0 fl High 35.1-43.9 [facility] Comment on above: Performed By: #### L 100.0100, L500.4050 ####[facility] [address] [place], [address] WBC (Bld) [#/Vol] 5.4 10*3/uL Normal 4.4-11.0 [facility] Comment on above: Performed By: #### L 100.0100, L500.4050 ####[facility] [address] [place], [address] Carbon dioxide, total [Moles /volume] in Central venous bloodOrdered By: Umang Pate on 07-10-2024 CO2 [Moles/Vol] 23.6 mmol/L 21.0-32.0 [facility] Chloride assayOrdered By: Lara Pate on 07-10-2024 Chloride [Moles/Vol] 105 mmol/L 98-108 [facility] Comprehensive Metabolic Prof ilon 07-10-2024 Albumin [Mass/Vol] 4.0 g/dL Normal 3.4-4.8 [facility] Comment on above: Performed By: #### L 100.0100, L500.4050 ####[facility] [address] [place], [address] Albumin/Globulin [Mass ratio] 1.4 {ratio} Normal 0.9-2.4 [facility] Comment on above: Performed By: #### L 100.0100, L500.4050 ####[facility] [address] [place], [address] ALK PHOS 90 U/L Normal 35-104 [facility] Comment on above: Performed By: #### L 100.0100, L500.4050 ####[facility] [address] [place], [address] ALT [Catalytic activity/Vol] 14 U/L Normal <=34 [facility] Comment on above: Performed By: #### L 100.0100, L500.4050 ####[facility] [address] [place], [address] AST [Catalytic activity/Vol] 22 U/L Normal <=31 [facility] Comment on above: Performed By: #### L 100.0100, L500.4050 ####[facility] [address] [place], [address] Bilirubin [Mass/Vol] 0.40 mg/dL Normal 0.00-1.30 [facility] Comment on above: Performed By: #### L 100.0100, L500.4050 ####[facility] [address] [place], [address] BUN/CRE 20.2 RATIO High 10-20 [facility] Comment on above: Performed By: #### L 100.0100, L500.4050 ####[facility] [address] [place], [address] Calcium [Mass/Vol] 9.3 mg/dL Normal 7.6-11.0 [facility] Comment on above: Performed By: #### L 100.0100, L500.4050 ####[facility] [address] [place], [address] Chloride [Moles/Vol] 105 mmol/L Normal 98-108 [facility] Comment on above: Performed By: #### L 100.0100, L500.4050 ####[facility] [address] [place], [address] CO2 [Moles/Vol] 23.6 mmol/L Normal 21.0-32.0 [facility] Comment on above: Performed By: #### L 100.0100, L500.4050 ####[facility] [address] [place], [address] Creatinine [Mass/Vol] 0.97 mg/dL Normal 0.70-1.20 [facility] Comment on above: Performed By: #### L 100.0100, L500.4050 ####[facility] [address] [place], [address] ECRCL 50.94 ml/min Normal 50-250 [facility] Comment on above: Performed By: #### L 100.0100, L500.4050 ####[facility] [address] [place], [address] GAP 10 Normal 5-15 [facility] Comment on above: Performed By: #### L 100.0100, L500.4050 ####[facility] [address] [place], [address] GFR/1.73 sq M.predicted among non-blacks MDRD (S/P/Bld) [Vol rate/Area] 59 mL/min/{1.73_m2} Low >60 [facility] Comment on above: Result Comment: mL/m in/1.73m2 CKD-EPI Creatinine Equation (2020) Performed By: #### L 100.0100, L500.4050 ####[facility] [address] [place], [address] Globulin (S) [Mass/Vol] 2.9 g/dL Normal 2.2-4.2 [facility] Comment on above: Performed By: #### L 100.0100, L500.4050 ####[facility] [address] [place], [address] Glucose [Mass/Vol] 112 mg/dL High 70-99 [facility] Comment on above: Performed By: #### L 100.0100, L500.4050 ####[facility] [address] [place], [address] Potassium [Moles/Vol] 4.0 mmol/L Normal 3.3-5.1 [facility] Comment on above: Performed By: #### L 100.0100, L500.4050 ####[facility] [address] [place], [address] Sodium [Moles/Vol] 139 mmol/L Normal 133-145 [facility] Comment on above: Performed By: #### L 100.0100, L500.4050 ####[facility] [address] [place], [address] T PROT 6.9 g/dL Normal 5.9-8.4 [facility] Comment on above: Performed By: #### L 100.0100, L500.4050 ####[facility] [address] [place], [address] Urea nitrogen [Mass/Vol] 20 mg/dL High 4-19 [facility] Comment on above: Performed By: #### L 100.0100, L500.4050 ####[facility] [address] [place], [address] Eosinophil percentageOrdered By: Umang Pate on 07-10-2024 Eosinophils/100 WBC (Bld) 1.3 % 0-5 [facility] Erythrocyte distribution wid th ratioOrdered By: Umang Pate on 07-10-2024 Erythrocyte distribution width (RBC) [Ratio] 14.9 % High 11.6-14.6 [facility] Erythrocyte distribution wid th standard deviationOrdered By: [facility] on 07-10-2024 Erythrocyte distribution width (RBC) [Ratio] 60.0 fl High 35.1-43.9 [facility] Glomerular filtration rate ( GFR) estimation/1.73 sq m using serum, plasma, or whole bOrdered By: Umang Pate on 07-10-2024 GFR/1.73 sq M.predicted among non-blacks MDRD (S/P/Bld) [Vol rate/Area] 59 mL/min/{1.73_m2} Low >60 [facility] Comment on above: mL/min/1.73m2 CKD-EP I Creatinine Equation (2020) Hematocrit Auto (Bld) [Volum e fraction]Ordered By: Umang Pate on 07-10-2024 Hematocrit (Bld) [Volume fraction] 38.9 % 37-47 [facility] Hemoglobin measurementOrdere d By: Umang Pate on 07-10-2024 Hemoglobin (Bld) [Mass/Vol] 13.0 g/dL 12.0-15.0 [facility] Immature granulocytes/100 WB C Auto (Bld)Ordered By: Umang Pate on 07-10-2024 Immature granulocytes/100 WBC (Bld) 0.400 % 0.0-0.9 [facility] Comment on above: IG% - Immature Granu locytes (promyelocytes, myelocytes and metamyelocytes) > 1% indicates that a LEFT SHIFT is Present. Laboratory - Chemistry and C hemistry - challengeOrdered By: Umang Pate on 07-10-2024 AST [Catalytic activity/Vol] 22 U/L <32 [facility] MCV (mean corpuscular volume ) determinationOrdered By: Umang Pate on 07-10-2024 MCV (RBC) [Entitic vol] 109.6 fL High 81-99 [facility] Mean corpuscular hemoglobin (MCH) determinationOrdered By: Umang Pate on 07-10-2024 MCH (RBC) [Entitic mass] 36.6 pg High 27.0-32.0 [facility] Mean corpuscular hemoglobin concentration (MCHC) determinationOrdered By: Umang Pate on 07-10-2024 MCHC (RBC) [Mass/Vol] 33.4 g/dL 32-36 [facility] Mean platelet volume determi nationOrdered By: Umang Pate on 07-10-2024 Platelet mean volume (Bld) [Entitic vol] 10.9 fL 6.2-12.0 [facility] Monocyte percentageOrdered B y: Umang Pate on 07-10-2024 Monocytes/100 WBC (Bld) 8.5 % 0-10 [facility] Neutrophil percentageOrdered By: Umang Pate on 07-10-2024 Neutrophils/100 WBC (Bld) 67.4 % 47-70 [facility] Nucleated red blood cell per centageOrdered By: Umang Pate on 07-10-2024 Nucleated RBC/100 WBC (Bld) [Ratio] 0 % 0-5 [facility] Oncology Visit Reporton 06-21 Oncology Visit Report Normal [facility] Platelet countOrdered By: Lara Pate on 07-10-2024 Platelets (Bld) [#/Vol] 252 10*3/uL 150-450 [facility] Potassium measurement (mass/ volume)Ordered By: Umang Pate on 07-10-2024 Potassium (Unsp spec) [Mass/Vol] 4.0 mmol/L 3.3-5.1 [facility] RBC Auto (Bld) [#/Vol]Ordere d By: Umang Pate on 07-10-2024 RBC (Bld) [#/Vol] 3.55 10*6/uL Low 4.2-5.4 [facility] Serum creatinine measurement (mass/volume)Ordered By: Umang Pate on 07-10-2024 Creatinine [Mass/Vol] 0.97 mg/dL 0.70-1.20 [facility] Serum globulin measurementOr dered By: Umang Pate on 07-10-2024 Globulin (S) [Mass/Vol] 2.9 g/dL 2.2-4.2 [facility] Serum glucose measurement (m ass/volume)Ordered By: Umang Pate on 07-10-2024 Glucose [Mass/Vol] 112 mg/dL High 70-99 [facility] Serum or plasma alanine bey otransferase (ALT) measurementOrdered By: Umang Pate on 07-10-2024 ALT [Catalytic activity/Vol] 14 U/L <35 [facility] Serum or plasma albumin niels urement (mass/volume)Ordered By: Umang Pate on 07-10-2024 Albumin [Mass/Vol] 4.0 g/dL 3.4-4.8 [facility] Serum or plasma albumin/glob ulin mass ratioOrdered By: Umang Pate on 07-10-2024 Albumin/Globulin [Mass ratio] 1.4 {ratio} 0.9-2.4 [facility] Serum or plasma alkaline victor hugo sphatase measurementOrdered By: Umang Pate on 07-10-2024 ALP [Catalytic activity/Vol] 90 U/L 35-104 [facility] Serum or plasma calcium niels urement (mass/volume)Ordered By: Umang Pate on 07-10-2024 Calcium [Mass/Vol] 9.3 mg/dL 7.6-11.0 [facility] Serum or plasma urea nitroge n measurement (mass/volume)Ordered By: Umang Herlinda on 07-10-2024 Urea nitrogen [Mass/Vol] 20 mg/dL High 4-19 [facility] Sodium levelOrdered By: Aram Verajoy on 07-10-2024 Sodium [Moles/Vol] 139 mmol/L 133-145 [facility] Total proteinOrdered By: Seng Verashefali on 07-10-2024 Protein [Mass/Vol] 6.9 g/dL 5.9-8.4 [facility] White blood cell (WBC) count Ordered By: Umang Herlinda on 07-10-2024 WBC (Bld) [#/Vol] 5.4 10*3/uL 4.4-11.0 [facility] CBC W/Diff, Automatedon 12-0 Absolute Lymph 1.45 X10 3/uL Normal 0.83-4.51 [facility] Comment on above: Performed By: #### L 100.0100, L500.4050 ####[facility] [address] [place], [address] Absolute Neut 5.9 X10 3/uL Normal 2.0-7.7 [facility] Comment on above: Performed By: #### L 100.0100, L500.4050 ####[facility] [address] [place], [address] Basophils/100 WBC (Bld) 0.1 % Normal 0-1 [facility] Comment on above: Performed By: #### L 100.0100, L500.4050 ####[facility] [address] [place], [address] Eosinophils/100 WBC (Bld) 0.9 % Normal 0-5 [facility] Comment on above: Performed By: #### L 100.0100, L500.4050 ####[facility] [address] [place], [address] Erythrocyte distribution width (RBC) [Ratio] 14.6 % Normal 11.6-14.6 [facility] Comment on above: Performed By: #### L 100.0100, L500.4050 ####[facility] [address] [place], [address] Hematocrit (Bld) [Volume fraction] 40.3 % Normal 37-47 [facility] Comment on above: Performed By: #### L 100.0100, L500.4050 ####[facility] [address] [place], [address] Hemoglobin (Bld) [Mass/Vol] 13.3 g/dL Normal 12.0-15.0 [facility] Comment on above: Performed By: #### L 100.0100, L500.4050 ####[facility] [address] [place], [address] IG% 0.500 Normal 0.0-0.9 [facility] Comment on above: Result Comment: IG% - Immature Granulocytes (promyelocytes, myelocytes andmetamyelocytes) > 1% indicates that a LEFT SHIFT is Present. Performed By: #### L 100.0100, L500.4050 ####[facility] [address] [place], [address] Lymphocytes/100 WBC (Bld) 17.7 % Low 19-41 [facility] Comment on above: Performed By: #### L 100.0100, L500.4050 ####[facility] [address] [place], [address] MCH (RBC) [Entitic mass] 36.2 pg High 27.0-32.0 [facility] Comment on above: Performed By: #### L 100.0100, L500.4050 ####[facility] [address] [place], [address] MCHC (RBC) [Mass/Vol] 33.0 g/dL Normal 32-36 [facility] Comment on above: Performed By: #### L 100.0100, L500.4050 ####[facility] [address] [place], [address] MCV (RBC) [Entitic vol] 109.8 fL High 81-99 [facility] Comment on above: Performed By: #### L 100.0100, L500.4050 ####[facility] [address] [place], [address] Monocytes/100 WBC (Bld) 8.1 % Normal 0-10 [facility] Comment on above: Performed By: #### L 100.0100, L500.4050 ####[facility] [address] [place], [address] Neutrophils/100 WBC (Bld) 72.7 % High 47-70 [facility] Comment on above: Performed By: #### L 100.0100, L500.4050 ####[facility] [address] [place], [address] Nucleated RBC (Bld) [#/Vol] 0 10*3/uL Normal 0-5 [facility] Comment on above: Performed By: #### L 100.0100, L500.4050 ####[facility] [address] [place], [address] Platelet mean volume (Bld) [Entitic vol] 10.6 fL Normal 6.2-12.0 [facility] Comment on above: Performed By: #### L 100.0100, L500.4050 ####[facility] [address] [place], [address] Platelets (Bld) [#/Vol] 300 10*3/uL Normal 150-450 [facility] Comment on above: Performed By: #### L 100.0100, L500.4050 ####[facility] [address] [place], [address] RBC (Bld) [#/Vol] 3.67 10*6/uL Low 4.2-5.4 [facility] Comment on above: Performed By: #### L 100.0100, L500.4050 ####[facility] [address] [place], [address] RDW SD 58.3 fl High 35.1-43.9 [facility] Comment on above: Performed By: #### L 100.0100, L500.4050 ####[facility] [address] [place], [address] WBC (Bld) [#/Vol] 8.2 10*3/uL Normal 4.4-11.0 [facility] Comment on above: Performed By: #### L 100.0100, L500.4050 ####[facility] [address] [place], [address] Comprehensive Metabolic Prof [facility] 02-22-2024 Albumin [Mass/Vol] 3.4 g/dL Normal 3.2-5.0 [facility] Comment on above: Performed By: #### L 100.0100, L500.4050 ####[facility] [address] [place], [address] Albumin/Globulin [Mass ratio] 1.0 {ratio} Normal 0.9-2.4 [facility] Comment on above: Performed By: #### L 100.0100, L500.4050 ####[facility] [address] [place], [address] ALK P 85 U/L Normal 45-117 [facility] Comment on above: Performed By: #### L 100.0100, L500.4050 ####[facility] [address] [place], [address] ALT [Catalytic activity/Vol] 29 U/L Normal 13-56 [facility] Comment on above: Performed By: #### L 100.0100, L500.4050 ####[facility] [address] [place], [address] AST [Catalytic activity/Vol] 25 U/L Normal 15-37 [facility] Comment on above: Result Comment: Mode rate Hemolysis, Result may be falsely increased. Performed By: #### L 100.0100, L500.4050 ####[facility] [address] [place], [address] Bilirubin [Mass/Vol] 0.70 mg/dL Normal 0.20-1.00 [facility] Comment on above: Result Comment: For patients on eltrombopag therapy, use of Dimension [place] TBIL is not recommended. Performed By: #### L 100.0100, L500.4050 ####[facility] [address] [place], [address] BUN/CRE 22.5 RATIO High 10-20 [facility] Comment on above: Performed By: #### L 100.0100, L500.4050 ####[facility] [address] [place], [address] CA,Total 8.9 mg/dL Normal 8.5-10.1 [facility] Comment on above: Performed By: #### L 100.0100, L500.4050 ####[facility] [address] [place], [address] Chloride [Moles/Vol] 109 mmol/L High 98-107 [facility] Comment on above: Performed By: #### L 100.0100, L500.4050 ####[facility] [address] [place], [address] CO2 [Moles/Vol] 27.0 mmol/L Normal 21.0-32.0 [facility] Comment on above: Performed By: #### L 100.0100, L500.4050 ####[facility] [address] [place], [address] Creatinine [Mass/Vol] 0.94 mg/dL Normal 0.55-1.02 [facility] Comment on above: Result Comment: The validity of the calculated GFR GFRAA in patients over70 years has not been determined. Clinical correlation isessential. Performed By: #### L 100.0100, L500.4050 ####[facility] [address] [place], [address] ECRCL 52.57 ml/min Normal [facility] Comment on above: Performed By: #### L 100.0100, L500.4050 ####[facility] [address] [place], [address] EST GFR - AA 74 mL/min Normal >60 [facility] Comment on above: Result Comment: Afri can Afghan GFR Calc Performed By: #### L 100.0100, L500.4050 ####[facility] [address] [place], [address] GAP 4 Low 5-15 [facility] Comment on above: Performed By: #### L 100.0100, L500.4050 ####[facility] [address] [place], [address] GFR/1.73 sq M.predicted among non-blacks MDRD (S/P/Bld) [Vol rate/Area] 61 mL/min/{1.73_m2} Normal >60 [facility] Comment on above: Result Comment: Non- GFR Calc Performed By: #### L 100.0100, L500.4050 ####[facility] [address] [place], [address] Globulin (S) [Mass/Vol] 3.5 g/dL Normal 2.2-4.2 [facility] Comment on above: Performed By: #### L 100.0100, L500.4050 ####[facility] [address] [place], [address] Glucose [Mass/Vol] 110 mg/dL High 74-106 [facility] Comment on above: Result Comment: Fast ing Glucose result from 100 to 125 mg/dLsuggests IMPAIRED HOMEOSTASIS per A.D.A. criteria. Performed By: #### L 100.0100, L500.4050 ####[facility] [address] [place], [address] Potassium [Moles/Vol] 4.2 mmol/L Normal 3.5-5.1 [facility] Comment on above: Result Comment: Mode rate Hemolysis, Result may be falsely increased. Performed By: #### L 100.0100, L500.4050 ####[facility] [address] [place], [address] Sodium [Moles/Vol] 140 mmol/L Normal 136-145 [facility] Comment on above: Performed By: #### L 100.0100, L500.4050 ####[facility] [address] [place], [address] T PROT 6.9 g/dL Normal 6.4-8.2 [facility] Comment on above: Performed By: #### L 100.0100, L500.4050 ####[facility] [address] [place], [address] Urea nitrogen [Mass/Vol] 21 mg/dL High 7-18 [facility] Comment on above: Performed By: #### L 100.0100, L500.4050 ####[facility] [address], [address] Oncology Visit Reporton 12-0 Oncology Visit Report Normal [facility] Laboratory - Hematology and Cell countsOrdered By: Umang Pate on 11-09-2023 Anisocytosis Ql (Bld) 1+ [facility] Serum or plasma thyroid stim ulating hormone (TSH) measurement (units/volume)Ordered By: Umang Pate on 08-05-2023 TSH Qn 1.06 uIU/mL 0.358-3.74 [facility] Absolute lymphocyte countOrd ered By: Dago Emery on 01-25-2023 Lymphocytes Auto (Unsp spec) [#/Vol] 1.06 10*3/uL 0.83-4.51 [facility] Basophil percentageOrdered B y: Dago Emery on 01-25-2023 Basophils/100 WBC (Bld) 0.2 % 0-1 [facility] Bilirubin [Mass/Vol] 0.40 mg/dL 0.20-1.00 [facility] Comment on above: For patients on eltr ombopag therapy, use of Dimension [place] TBIL is not recommended. Chloride [Moles/Vol] 108 mmol/L 98-107 [facility] Eosinophils/100 WBC (Bld) 1.1 % 0-5 [facility] Glucose [Mass/Vol] 116 mg/dL 74-106 [facility] Comment on above: Fasting Glucose resu lt from 100 to 125 mg/dL suggests IMPAIRED HOMEOSTASIS per A.D.A. criteria. Neutrophils (Bld) [#/Vol] 2.8 10*3/uL 2.0-7.7 [facility] Neutrophils/100 WBC (Bld) 64.3 % 47-70 [facility] Potassium [Moles/Vol] 3.6 mmol/L 3.5-5.1 [facility] Protein [Mass/Vol] 7.1 g/dL 6.4-8.2 [facility] Sodium [Moles/Vol] 141 mmol/L 136-145 [facility] WBC (Bld) [#/Vol] 4.4 10*3/uL 4.4-11.0 [facility] Blood erythrocytes count (nu mber/volume)Ordered By: Dago Emery on 01-25-2023 RBC (Bld) [#/Vol] 3.25 10*6/uL 4.2-5.4 [facility] Blood hemoglobin measurement (mass/volume)Ordered By: Dago Emery on 01-25-2023 Hemoglobin (Bld) [Mass/Vol] 11.8 g/dL 12.0-15.0 [facility] Blood lymphocytes/100 leukoc ytesOrdered By: Dago Emery on 01-25-2023 Lymphocytes/100 WBC (Bld) 24.1 % 19-41 [facility] Blood manual differential co mment interpretation (narrative result)Ordered By: Dago Emery on 01-25-2023 Manual differential comment Jack (Bld) [Interp] SCANNED [facility] Blood monocytes/100 leukocyt esOrdered By: Dago Emery on 01-25-2023 Monocytes/100 WBC (Bld) 9.8 % 0-10 [facility] Blood platelet mean volumeOr dered By: Dago Emery on 01-25-2023 Platelet mean volume (Bld) [Entitic vol] 11.2 fL 6.2-12.0 [facility] Determination of erythrocyte mean corpuscular volume (MCV)Ordered By: Dago Emery on 01-25-2023 MCV (RBC) [Entitic vol] 113.8 fL 81-99 [facility] Hematocrit Auto (Bld) [Volum e fraction]Ordered By: Dago Emery on 01-25-2023 Hematocrit (Bld) [Volume fraction] 37.0 % 37-47 [facility] Laboratory - Chemistry and C hemistry - challengeOrdered By: Dago Emery on 01-25-2023 ALP [Catalytic activity/Vol] 82 U/L 45-117 [facility] ALT [Catalytic activity/Vol] 15 U/L 13-56 [facility] CO2 [Moles/Vol] 26.0 mmol/L 21.0-32.0 [facility] Globulin (S) [Mass/Vol] 3.8 g/dL 2.2-4.2 [facility] Urea nitrogen/Creatinine [Mass ratio] 18.6 mg/mg 10-20 [facility] Laboratory - Hematology and Cell countsOrdered By: Dago Emery on 01-25-2023 Anisocytosis Ql (Bld) 2+ [facility] Erythrocyte distribution width (RBC) [Entitic vol] 65.5 fL 35.1-43.9 [facility] Erythrocyte distribution width (RBC) [Ratio] 15.7 % 11.6-14.6 [facility] Immature granulocytes/100 WBC (Bld) 0.500 % 0.0-0.9 [facility] Comment on above: IG% - Immature Granu locytes (promyelocytes, myelocytes and metamyelocytes) > 1% indicates that a LEFT SHIFT is Present. MCH (RBC) [Entitic mass] 36.3 pg 27.0-32.0 [facility] Nucleated RBC/100 WBC (Bld) [Ratio] 0 % 0-5 [facility] MCHC Auto (RBC) [Mass/Vol]Or dered By: Dago Emery on 01-25-2023 MCHC (RBC) [Mass/Vol] 31.9 g/dL 32-36 [facility] Macrocytes detectionOrdered By: Dago Emery on 01-25-2023 Macrocytes Ql (Bld) 2+ [facility] No Panel InformationOrdered By: Dago Emery on 01-25-2023 Estimated GFR (MDRD) Amer 67 mL/min >60 [facility] Comment on above: GFR Calc Estimated GFR (MDRD) Non-Af Amer 56 mL/min >60 [facility] Comment on above: Non- GFR Calc Thyroid Stimulating Hormone (TSH) 1.65 uIU/mL 0.358-3.74 [facility] Vitamin D 25-Hydroxy 39.0 ng/mL [facility] Comment on above: Vitamin D 25(OH) Sta tus Range Deficiency <20 ng/mL (50nmol/L) Insufficiency 20 - 30 ng/mL (50 - 75 nmol/L) Sufficiency 30 - 100 ng/mL (75 - 250 nmol/L) Toxicity >100 ng/mL (>250 nmol/L) Platelets bldOrdered By: Dago Emery on 01-25-2023 Platelets (Bld) [#/Vol] 265 10*3/uL 150-450 [facility] Serum or plasma albumin niels urement (mass/volume)Ordered By: Dago Emery on 01-25-2023 Albumin [Mass/Vol] 3.3 g/dL 3.2-5.0 [facility] Serum or plasma albumin/glob ulin mass ratioOrdered By: Dago Emery on 01-25-2023 Albumin/Globulin [Mass ratio] 0.9 {ratio} 0.9-2.4 [facility] Serum or plasma calcium niels urement (mass/volume)Ordered By: Dago Emery on 01-25-2023 Calcium [Mass/Vol] 9.1 mg/dL 8.5-10.1 [facility] Serum or plasma creatinine m easurement (mass/volume)Ordered By: Dago Emery on 01-25-2023 Creatinine [Mass/Vol] 1.02 mg/dL 0.55-1.02 [facility] Comment on above: The validity of the calculated GFR & GFRAA in patients over 70 years has not been determined. Clinical correlation is essential. Serum or plasma urea nitroge n measurement (mass/volume)Ordered By: Dago Emery on 01-25-2023 Urea nitrogen [Mass/Vol] 19 mg/dL 7-18 [facility] Thin prep Papanicolaou smear with manual screeningOrdered By: Dago Emery on 01-25-2023 Thin prep Papanicolaou smear with manual screening 25 U/L 15-37 [facility] Thin prep Papanicolaou smear with manual screening 7 5-15 [facility] Absolute lymphocyte countOrd ered By: Carolyn Ruvalcaba on 11-04-2022 Lymphocytes Auto (Unsp spec) [#/Vol] 1.04 10*3/uL 0.83-4.51 [facility] Basophil percentageOrdered B y: Carolyn Ruvalcaba on 11-04-2022 Basophils/100 WBC (Bld) 0.5 % 0-1 [facility] Bilirubin [Mass/Vol] 0.50 mg/dL 0.20-1.00 [facility] Comment on above: For patients on eltr ombopag therapy, use of Dimension [place] TBIL is not recommended. Chloride [Moles/Vol] 108 mmol/L 98-107 [facility] Eosinophils/100 WBC (Bld) 1.1 % 0-5 [facility] Glucose [Mass/Vol] 127 mg/dL 74-106 [facility] Comment on above: Fasting Glucose resu lt greater than or equal to 126 mg/dL suggests DIABETES MELLITUS per A.D.A. criteria. Neutrophils (Bld) [#/Vol] 4.6 10*3/uL 2.0-7.7 [facility] Neutrophils/100 WBC (Bld) 74.8 % 47-70 [facility] Potassium [Moles/Vol] 3.8 mmol/L 3.5-5.1 [facility] Protein [Mass/Vol] 7.4 g/dL 6.4-8.2 [facility] Sodium [Moles/Vol] 140 mmol/L 136-145 [facility] WBC (Bld) [#/Vol] 6.2 10*3/uL 4.4-11.0 [facility] Blood erythrocytes count (nu mber/volume)Ordered By: Carolyn Ruvalcaba on 11-04-2022 RBC (Bld) [#/Vol] 3.43 10*6/uL 4.2-5.4 [facility] Blood hemoglobin measurement (mass/volume)Ordered By: Carolyn Ruvalcaba on 11-04-2022 Hemoglobin (Bld) [Mass/Vol] 12.0 g/dL 12.0-15.0 [facility] Blood lymphocytes/100 leukoc ytesOrdered By: Carolyn Ruvalcaba on 11-04-2022 Lymphocytes/100 WBC (Bld) 16.8 % 19-41 [facility] Blood monocytes/100 leukocyt esOrdered By: Carolyn Ruvalcaba on 11-04-2022 Monocytes/100 WBC (Bld) 6.5 % 0-10 [facility] Blood platelet mean volumeOr dered By: Carolyn Ruvalcaba on 11-04-2022 Platelet mean volume (Bld) [Entitic vol] 10.0 fL 6.2-12.0 [facility] Determination of erythrocyte mean corpuscular volume (MCV)Ordered By: Carolyn Ruvalcaba on 11-04-2022 MCV (RBC) [Entitic vol] 110.5 fL 81-99 [facility] Hematocrit Auto (Bld) [Volum e fraction]Ordered By: Carolyn Ruvalcaba on 11-04-2022 Hematocrit (Bld) [Volume fraction] 37.9 % 37-47 [facility] Laboratory - Chemistry and C hemistry - challengeOrdered By: Carolyn Ruvalcaba on 11-04-2022 ALP [Catalytic activity/Vol] 89 U/L 45-117 [facility] ALT [Catalytic activity/Vol] 18 U/L 13-56 [facility] CO2 [Moles/Vol] 25.0 mmol/L 21.0-32.0 [facility] Globulin (S) [Mass/Vol] 4.1 g/dL 2.2-4.2 [facility] Urea nitrogen/Creatinine [Mass ratio] 14.8 mg/mg 10-20 [facility] Laboratory - Hematology and Cell countsOrdered By: Carolyn Ruvalcaba on 11-04-2022 Erythrocyte distribution width (RBC) [Entitic vol] 62.5 fL 35.1-43.9 [facility] Erythrocyte distribution width (RBC) [Ratio] 15.6 % 11.6-14.6 [facility] Immature granulocytes/100 WBC (Bld) 0.300 % 0.0-0.9 [facility] Comment on above: IG% - Immature Granu locytes (promyelocytes, myelocytes and metamyelocytes) > 1% indicates that a LEFT SHIFT is Present. MCH (RBC) [Entitic mass] 35.0 pg 27.0-32.0 [facility] Nucleated RBC/100 WBC (Bld) [Ratio] 0 % 0-5 [facility] MCHC Auto (RBC) [Mass/Vol]Or dered By: Carolyn Ruvalcaba on 11-04-2022 MCHC (RBC) [Mass/Vol] 31.7 g/dL 32-36 [facility] No Panel InformationOrdered By: Carolyn Ruvalcaba on 11-04-2022 Estimated Creatinine Clearance Calc 41.46 ml/min [facility] Estimated GFR (MDRD) Amer 73 mL/min >60 [facility] Comment on above: GFR Calc Estimated GFR (MDRD) Non-Af Amer 60 mL/min >60 [facility] Comment on above: Non- GFR Calc Platelets bldOrdered By: Nayan Ruvalcaba on 11-04-2022 Platelets (Bld) [#/Vol] 298 10*3/uL 150-450 [facility] Serum or plasma albumin niels urement (mass/volume)Ordered By: Carolyn Ruvalcaba on 11-04-2022 Albumin [Mass/Vol] 3.3 g/dL 3.2-5.0 [facility] Serum or plasma albumin/glob ulin mass ratioOrdered By: Carolyn Ruvalcaba on 11-04-2022 Albumin/Globulin [Mass ratio] 0.8 {ratio} 0.9-2.4 [facility] Serum or plasma calcium niels urement (mass/volume)Ordered By: Carolyn Ruvalcaba on 11-04-2022 Calcium [Mass/Vol] 9.2 mg/dL 8.5-10.1 [facility] Serum or plasma creatinine m easurement (mass/volume)Ordered By: Carolyn Ruvalcaba on 11-04-2022 Creatinine [Mass/Vol] 0.95 mg/dL 0.55-1.02 [facility] Comment on above: The validity of the calculated GFR & GFRAA in patients over 70 years has not been determined. Clinical correlation is essential. Serum or plasma urea nitroge n measurement (mass/volume)Ordered By: Carolyn Ruvalcaba on 11-04-2022 Urea nitrogen [Mass/Vol] 14 mg/dL 7-18 [facility] Thin prep Papanicolaou smear with manual screeningOrdered By: [facility] Peg on 11-04-2022 Thin prep Papanicolaou smear with manual screening 19 U/L 15-37 [facility] Thin prep Papanicolaou smear with manual screening 7 5-15 [facility] Absolute lymphocyte countOrd ered By: Dago Emery on 10-10-2022 Lymphocytes Auto (Unsp spec) [#/Vol] 1.27 10*3/uL 0.83-4.51 [facility] Basophil percentageOrdered B y: Dago Emery on 10-10-2022 Basophils/100 WBC (Bld) 0.4 % 0-1 [facility] Eosinophils/100 WBC (Bld) 5.2 % 0-5 [facility] Neutrophils (Bld) [#/Vol] 3.2 10*3/uL 2.0-7.7 [facility] Neutrophils/100 WBC (Bld) 61.5 % 47-70 [facility] WBC (Bld) [#/Vol] 5.2 10*3/uL 4.4-11.0 [facility] Chloride [Moles/Vol] 109 mmol/L 98-107 [facility] Glucose [Mass/Vol] 101 mg/dL 74-106 [facility] Comment on above: Fasting Glucose resu lt from 100 to 125 mg/dL suggests IMPAIRED HOMEOSTASIS per A.D.A. criteria. Potassium [Moles/Vol] 3.9 mmol/L 3.5-5.1 [facility] Sodium [Moles/Vol] 138 mmol/L 136-145 [facility] Blood erythrocytes count (nu mber/volume)Ordered By: Dago Emery on 10-10-2022 RBC (Bld) [#/Vol] 2.93 10*6/uL 4.2-5.4 [facility] Blood hemoglobin measurement (mass/volume)Ordered By: Dago Emery on 10-10-2022 Hemoglobin (Bld) [Mass/Vol] 10.5 g/dL 12.0-15.0 [facility] Blood lymphocytes/100 leukoc ytesOrdered By: Dago Emery on 10-10-2022 Lymphocytes/100 WBC (Bld) 24.4 % 19-41 [facility] Blood monocytes/100 leukocyt esOrdered By: Dago Emrey on 10-10-2022 Monocytes/100 WBC (Bld) 8.1 % 0-10 [facility] Blood platelet mean volumeOr dered By: Dago Emery on 10-10-2022 Platelet mean volume (Bld) [Entitic vol] 10.3 fL 6.2-12.0 [facility] Determination of erythrocyte mean corpuscular volume (MCV)Ordered By: Dago Emery on 10-10-2022 MCV (RBC) [Entitic vol] 109.6 fL 81-99 [facility] Hematocrit Auto (Bld) [Volum e fraction]Ordered By: Dago Emery 10-10-2022 Hematocrit (Bld) [Volume fraction] 32.1 % 37-47 [facility] Laboratory - Chemistry and C hemistry - challengeOrdered By: Dago Emery 10-10-2022 CO2 [Moles/Vol] 24.0 mmol/L 21.0-32.0 [facility] Urea nitrogen/Creatinine [Mass ratio] 24.1 mg/mg 10-20 [facility] Laboratory - Hematology and Cell countsOrdered By: Dago Emery 10-10-2022 Erythrocyte distribution width (RBC) [Entitic vol] 54.4 fL 35.1-43.9 [facility] Erythrocyte distribution width (RBC) [Ratio] 13.9 % 11.6-14.6 [facility] Immature granulocytes/100 WBC (Bld) 0.400 % 0.0-0.9 [facility] Comment on above: IG% - Immature Granu locytes (promyelocytes, myelocytes and metamyelocytes) > 1% indicates that a LEFT SHIFT is Present. MCH (RBC) [Entitic mass] 35.8 pg 27.0-32.0 [facility] Nucleated RBC/100 WBC (Bld) [Ratio] 0 % 0-5 [facility] MCHC Auto (RBC) [Mass/Vol]Or dered By: Dago Emery on 10-10-2022 MCHC (RBC) [Mass/Vol] 32.7 g/dL 32-36 [facility] No Panel InformationOrdered By: Dago Emery on 10-10-2022 Estimated Creatinine Clearance Calc 41.05 ml/min [facility] Estimated GFR (MDRD) Amer 69 mL/min >60 [facility] Comment on above: GFR Calc Estimated GFR (MDRD) Non-Af Amer 57 mL/min >60 [facility] Comment on above: Non- GFR Calc Platelets bldOrdered By: Dago Emery on 10-10-2022 Platelets (Bld) [#/Vol] 409 10*3/uL 150-450 [facility] Serum or plasma calcium niels urement (mass/volume)Ordered By: Dago Emery on 10-10-2022 Calcium [Mass/Vol] 8.7 mg/dL 8.5-10.1 [facility] Serum or plasma creatinine m easurement (mass/volume)Ordered By: Dago Emery on 10-10-2022 Creatinine [Mass/Vol] 1.00 mg/dL 0.55-1.02 [facility] Comment on above: The validity of the calculated GFR & GFRAA in patients over 70 years has not been determined. Clinical correlation is essential. Serum or plasma urea nitroge n measurement (mass/volume)Ordered By: Dago Emery on 10-10-2022 Urea nitrogen [Mass/Vol] 24 mg/dL 7-18 [facility] Thin prep Papanicolaou smear with manual screeningOrdered By: Dago Emery 10-10-2022 Thin prep Papanicolaou smear with manual screening 5 5-15 [facility] Absolute lymphocyte countOrd ered By: Dr. Pate on 08-05-2022 Lymphocytes Auto (Unsp spec) [#/Vol] 1.00 10*3/uL 0.83-4.51 [facility] Basophil percentageOrdered B y: Dr. Pate on 08-05-2022 Basophils/100 WBC (Bld) 0.6 % 0-1 [facility] Chloride [Moles/Vol] 111 mmol/L 98-107 [facility] Eosinophils/100 WBC (Bld) 2.5 % 0-5 [facility] Glucose [Mass/Vol] 116 mg/dL 74-106 [facility] Comment on above: Fasting Glucose resu lt from 100 to 125 mg/dL suggests IMPAIRED HOMEOSTASIS per A.D.A. criteria. Neutrophils (Bld) [#/Vol] 3.5 10*3/uL 2.0-7.7 [facility] Neutrophils/100 WBC (Bld) 67.0 % 47-70 [facility] Potassium [Moles/Vol] 3.9 mmol/L 3.5-5.1 [facility] Comment on above: Slight Hemolysis, Re sult may be falsely increased. Sodium [Moles/Vol] 141 mmol/L 136-145 [facility] WBC (Bld) [#/Vol] 5.3 10*3/uL 4.4-11.0 [facility] Blood erythrocytes count (nu mber/volume)Ordered By: Dr. Pate on 08-05-2022 RBC (Bld) [#/Vol] 3.36 10*6/uL 4.2-5.4 [facility] Blood hemoglobin measurement (mass/volume)Ordered By: Dr. Pate on 08-05-2022 Hemoglobin (Bld) [Mass/Vol] 12.4 g/dL 12.0-15.0 [facility] Blood lymphocytes/100 leukoc ytesOrdered By: Dr. Pate on 08-05-2022 Lymphocytes/100 WBC (Bld) 18.9 % 19-41 [facility] Blood monocytes/100 leukocyt esOrdered By: Dr. Pate on 08-05-2022 Monocytes/100 WBC (Bld) 10.2 % 0-10 [facility] Blood platelet mean volumeOr dered By: Dr. Pate on 08-05-2022 Platelet mean volume (Bld) [Entitic vol] 10.6 fL 6.2-12.0 [facility] Determination of erythrocyte mean corpuscular volume (MCV)Ordered By: Dr. Pate on 08-05-2022 MCV (RBC) [Entitic vol] 114.6 fL 81-99 [facility] Hematocrit Auto (Bld) [Volum e fraction]Ordered By: Dr. Pate on 08-05-2022 Hematocrit (Bld) [Volume fraction] 38.5 % 37-47 [facility] Laboratory - Chemistry and C hemistry - challengeOrdered By: Dr. Pate on 08-05-2022 CO2 [Moles/Vol] 24.0 mmol/L 21.0-32.0 [facility] Urea nitrogen/Creatinine [Mass ratio] 23.1 mg/mg 10-20 [facility] Laboratory - Hematology and Cell countsOrdered By: Dr. Pate on 08-05-2022 Erythrocyte distribution width (RBC) [Entitic vol] 59.2 fL 35.1-43.9 [facility] Erythrocyte distribution width (RBC) [Ratio] 14.0 % 11.6-14.6 [facility] Immature granulocytes/100 WBC (Bld) 0.800 % 0.0-0.9 [facility] Comment on above: IG% - Immature Granu locytes (promyelocytes, myelocytes and metamyelocytes) > 1% indicates that a LEFT SHIFT is Present. MCH (RBC) [Entitic mass] 36.9 pg 27.0-32.0 [facility] Nucleated RBC/100 WBC (Bld) [Ratio] 0 % 0-5 [facility] MCHC Auto (RBC) [Mass/Vol]Or dered By: Dr. Pate on 08-05-2022 MCHC (RBC) [Mass/Vol] 32.2 g/dL 32-36 [facility] No Panel InformationOrdered By: Dr. Pate on 08-05-2022 Estimated Creatinine Clearance Calc 37.88 ml/min [facility] Estimated GFR (MDRD) Amer 66 mL/min >60 [facility] Comment on above: GFR Calc Estimated GFR (MDRD) Non-Af Amer 54 mL/min >60 [facility] Comment on above: Non- GFR Calc Platelets bldOrdered By: Dr. Pate on 08-05-2022 Platelets (Bld) [#/Vol] 327 10*3/uL 150-450 [facility] Serum or plasma albumin niels urement (mass/volume)Ordered By: Dr. Pate on 08-05-2022 Albumin [Mass/Vol] 3.3 g/dL 3.2-5.0 [facility] Serum or plasma calcium niels urement (mass/volume)Ordered By: Dr. Pate on 08-05-2022 Calcium [Mass/Vol] 8.9 mg/dL 8.5-10.1 [facility] Serum or plasma creatinine m easurement (mass/volume)Ordered By: Dr. Pate on 08-05-2022 Creatinine [Mass/Vol] 1.04 mg/dL 0.55-1.02 [facility] Comment on above: The validity of the calculated GFR & GFRAA in patients over 70 years has not been determined. Clinical correlation is essential. Serum or plasma urea nitroge n measurement (mass/volume)Ordered By: Dr. Pate on 08-05-2022 Urea nitrogen [Mass/Vol] 24 mg/dL 7-18 [facility] Thin prep Papanicolaou smear with manual screeningOrdered By: Dr. Pate on 08-05-2022 Thin prep Papanicolaou smear with manual screening 6 5-15 [facility] Absolute lymphocyte countOrd ered By: Dr. Pate on 07-20-2022 Lymphocytes Auto (Unsp spec) [#/Vol] 1.03 10*3/uL 0.83-4.51 [facility] Basophil percentageOrdered B y: Dr. Pate on 07-20-2022 Basophils/100 WBC (Bld) 0.3 % 0-1 [facility] Bilirubin [Mass/Vol] 0.40 mg/dL 0.20-1.00 [facility] Comment on above: For patients on eltr ombopag therapy, use of Dimension [place] TBIL is not recommended. Chloride [Moles/Vol] 107 mmol/L 98-107 [facility] Eosinophils/100 WBC (Bld) 2.4 % 0-5 [facility] Glucose [Mass/Vol] 109 mg/dL 74-106 [facility] Comment on above: Fasting Glucose resu lt from 100 to 125 mg/dL suggests IMPAIRED HOMEOSTASIS per A.D.A. criteria. Neutrophils (Bld) [#/Vol] 4.0 10*3/uL 2.0-7.7 [facility] Neutrophils/100 WBC (Bld) 68.9 % 47-70 [facility] Potassium [Moles/Vol] 4.0 mmol/L 3.5-5.1 [facility] Protein [Mass/Vol] 7.2 g/dL 6.4-8.2 [facility] Sodium [Moles/Vol] 140 mmol/L 136-145 [facility] WBC (Bld) [#/Vol] 5.8 10*3/uL 4.4-11.0 [facility] Blood erythrocytes count (nu mber/volume)Ordered By: Dr. Pate on 07-20-2022 RBC (Bld) [#/Vol] 3.25 10*6/uL 4.2-5.4 [facility] Blood hemoglobin measurement (mass/volume)Ordered By: Dr. Pate on 07-20-2022 Hemoglobin (Bld) [Mass/Vol] 12.2 g/dL 12.0-15.0 [facility] Blood lymphocytes/100 leukoc ytesOrdered By: Dr. Pate on 07-20-2022 Lymphocytes/100 WBC (Bld) 17.7 % 19-41 [facility] Blood monocytes/100 leukocyt esOrdered By: Dr. Pate on 07-20-2022 Monocytes/100 WBC (Bld) 10.2 % 0-10 [facility] Blood platelet mean volumeOr dered By: Dr. Pate on 07-20-2022 Platelet mean volume (Bld) [Entitic vol] 11.0 fL 6.2-12.0 [facility] Determination of erythrocyte mean corpuscular volume (MCV)Ordered By: Dr. Pate on 07-20-2022 MCV (RBC) [Entitic vol] 115.1 fL 81-99 [facility] Hematocrit Auto (Bld) [Volum e fraction]Ordered By: Dr. Pate on 07-20-2022 Hematocrit (Bld) [Volume fraction] 37.4 % 37-47 [facility] Laboratory - Chemistry and C hemistry - challengeOrdered By: Dr. Pate on 07-20-2022 ALP [Catalytic activity/Vol] 89 U/L 45-117 [facility] ALT [Catalytic activity/Vol] 26 U/L 13-56 [facility] CO2 [Moles/Vol] 25.0 mmol/L 21.0-32.0 [facility] Globulin (S) [Mass/Vol] 3.9 g/dL 2.2-4.2 [facility] Urea nitrogen/Creatinine [Mass ratio] 18.1 mg/mg 10-20 [facility] Laboratory - Hematology and Cell countsOrdered By: Dr. Pate on 07-20-2022 Erythrocyte distribution width (RBC) [Entitic vol] 63.6 fL 35.1-43.9 [facility] Erythrocyte distribution width (RBC) [Ratio] 15.0 % 11.6-14.6 [facility] Immature granulocytes/100 WBC (Bld) 0.500 % 0.0-0.9 [facility] Comment on above: IG% - Immature Granu locytes (promyelocytes, myelocytes and metamyelocytes) > 1% indicates that a LEFT SHIFT is Present. MCH (RBC) [Entitic mass] 37.5 pg 27.0-32.0 [facility] Nucleated RBC/100 WBC (Bld) [Ratio] 0 % 0-5 [facility] MCHC Auto (RBC) [Mass/Vol]Or dered By: Dr. Pate on 07-20-2022 MCHC (RBC) [Mass/Vol] 32.6 g/dL 32-36 [facility] No Panel InformationOrdered By: Dr. Pate on 07-20-2022 Estimated GFR (MDRD) Amer 58 mL/min >60 [facility] Comment on above: GFR Calc Estimated GFR (MDRD) Non-Af Amer 48 mL/min >60 [facility] Comment on above: Non- GFR Calc Thyroid Stimulating Hormone (TSH) 1.57 uIU/mL 0.358-3.74 [facility] Vitamin D 25-Hydroxy 32.7 ng/mL [facility] Comment on above: Vitamin D 25(OH) Sta tus Range Deficiency <20 ng/mL (50nmol/L) Insufficiency 20 - 30 ng/mL (50 - 75 nmol/L) Sufficiency 30 - 100 ng/mL (75 - 250 nmol/L) Toxicity >100 ng/mL (>250 nmol/L) Platelets bldOrdered By: Dr. Pate on 07-20-2022 Platelets (Bld) [#/Vol] 262 10*3/uL 150-450 [facility] Serum or plasma albumin niels urement (mass/volume)Ordered By: Dr. Pate on 07-20-2022 Albumin [Mass/Vol] 3.3 g/dL 3.2-5.0 [facility] Serum or plasma albumin/glob ulin mass ratioOrdered By: Dr. Pate on 07-20-2022 Albumin/Globulin [Mass ratio] 0.8 {ratio} 0.9-2.4 [facility] Serum or plasma calcium niels urement (mass/volume)Ordered By: Dr. Pate on 07-20-2022 Calcium [Mass/Vol] 8.9 mg/dL 8.5-10.1 [facility] Serum or plasma creatinine m easurement (mass/volume)Ordered By: Dr. Pate on 07-20-2022 Creatinine [Mass/Vol] 1.16 mg/dL 0.55-1.02 [facility] Comment on above: The validity of the calculated GFR & GFRAA in patients over 70 years has not been determined. Clinical correlation is essential. Serum or plasma urea nitroge n measurement (mass/volume)Ordered By: Dr. Pate on 07-20-2022 Urea nitrogen [Mass/Vol] 21 mg/dL 7-18 [facility] Thin prep Papanicolaou smear with manual screeningOrdered By: Dr. Pate on 07-20-2022 Thin prep Papanicolaou smear with manual screening 28 U/L 15-37 [facility] Thin prep Papanicolaou smear with manual screening 8 5-15 [facility] Absolute lymphocyte countOrd ered By: Dr. Pate on 05-06-2022 Lymphocytes Auto (Unsp spec) [#/Vol] 1.13 10*3/uL 0.83-4.51 [facility] Basophil percentageOrdered B y: Dr. Pate on 05-06-2022 Basophils/100 WBC (Bld) 0.2 % 0-1 [facility] Bilirubin [Mass/Vol] 0.40 mg/dL 0.20-1.00 [facility] Comment on above: For patients on eltr ombopag therapy, use of Dimension [place] TBIL is not recommended. Chloride [Moles/Vol] 106 mmol/L 98-107 [facility] Eosinophils/100 WBC (Bld) 1.0 % 0-5 [facility] Glucose [Mass/Vol] 133 mg/dL 74-106 [facility] Comment on above: Fasting Glucose resu lt greater than or equal to 126 mg/dL suggests DIABETES MELLITUS per A.D.A. criteria. Neutrophils (Bld) [#/Vol] 2.5 10*3/uL 2.0-7.7 [facility] Neutrophils/100 WBC (Bld) 60.9 % 47-70 [facility] Potassium [Moles/Vol] 3.4 mmol/L 3.5-5.1 [facility] Protein [Mass/Vol] 7.2 g/dL 6.4-8.2 [facility] Sodium [Moles/Vol] 140 mmol/L 136-145 [facility] WBC (Bld) [#/Vol] 4.1 10*3/uL 4.4-11.0 [facility] Blood erythrocytes count (nu mber/volume)Ordered By: Dr. Pate on 05-06-2022 RBC (Bld) [#/Vol] 3.32 10*6/uL 4.2-5.4 [facility] Blood hemoglobin measurement (mass/volume)Ordered By: Dr. Pate on 05-06-2022 Hemoglobin (Bld) [Mass/Vol] 12.4 g/dL 12.0-15.0 [facility] Blood lymphocytes/100 leukoc ytesOrdered By: Dr. Pate on 05-06-2022 Lymphocytes/100 WBC (Bld) 27.5 % 19-41 [facility] Blood monocytes/100 leukocyt esOrdered By: Dr. Pate on 05-06-2022 Monocytes/100 WBC (Bld) 9.7 % 0-10 [facility] Blood platelet mean volumeOr dered By: Dr. Pate on 05-06-2022 Platelet mean volume (Bld) [Entitic vol] 10.6 fL 6.2-12.0 [facility] Determination of erythrocyte mean corpuscular volume (MCV)Ordered By: Dr. Pate on 05-06-2022 MCV (RBC) [Entitic vol] 112.0 fL 81-99 [facility] Hematocrit Auto (Bld) [Volum e fraction]Ordered By: Dr. Pate on 05-06-2022 Hematocrit (Bld) [Volume fraction] 37.2 % 37-47 [facility] Laboratory - Chemistry and C hemistry - challengeOrdered By: Dr. Pate on 05-06-2022 ALP [Catalytic activity/Vol] 75 U/L 45-117 [facility] ALT [Catalytic activity/Vol] 17 U/L 13-56 [facility] CO2 [Moles/Vol] 27.0 mmol/L 21.0-32.0 [facility] Globulin (S) [Mass/Vol] 3.8 g/dL 2.2-4.2 [facility] Urea nitrogen/Creatinine [Mass ratio] 20.2 mg/mg 10-20 [facility] Laboratory - Hematology and Cell countsOrdered By: Dr. Pate on 05-06-2022 Erythrocyte distribution width (RBC) [Entitic vol] 62.5 fL 35.1-43.9 [facility] Erythrocyte distribution width (RBC) [Ratio] 15.3 % 11.6-14.6 [facility] Immature granulocytes/100 WBC (Bld) 0.700 % 0.0-0.9 [facility] Comment on above: IG% - Immature Granu locytes (promyelocytes, myelocytes and metamyelocytes) > 1% indicates that a LEFT SHIFT is Present. MCH (RBC) [Entitic mass] 37.3 pg 27.0-32.0 [facility] Nucleated RBC/100 WBC (Bld) [Ratio] 0 % 0-5 [facility] MCHC Auto (RBC) [Mass/Vol]Or dered By: Dr. Pate on 05-06-2022 MCHC (RBC) [Mass/Vol] 33.3 g/dL 32-36 [facility] No Panel InformationOrdered By: Dr. Pate on 05-06-2022 Estimated Creatinine Clearance Calc 36.73 ml/min [facility] Estimated GFR (MDRD) Amer 62 mL/min >60 [facility] Comment on above: GFR Calc Estimated GFR (MDRD) Non-Af Amer 52 mL/min >60 [facility] Comment on above: Non- GFR Calc Platelets bldOrdered By: Dr. Pate on 05-06-2022 Platelets (Bld) [#/Vol] 239 10*3/uL 150-450 [facility] Serum or plasma albumin niels urement (mass/volume)Ordered By: Dr. Pate on 05-06-2022 Albumin [Mass/Vol] 3.4 g/dL 3.2-5.0 [facility] Serum or plasma albumin/glob ulin mass ratioOrdered By: Dr. Pate on 05-06-2022 Albumin/Globulin [Mass ratio] 0.9 {ratio} 0.9-2.4 [facility] Serum or plasma calcium niels urement (mass/volume)Ordered By: Dr. Pate on 05-06-2022 Calcium [Mass/Vol] 8.9 mg/dL 8.5-10.1 [facility] Serum or plasma creatinine m easurement (mass/volume)Ordered By: Dr. Pate on 05-06-2022 Creatinine [Mass/Vol] 1.09 mg/dL 0.55-1.02 [facility] Comment on above: The validity of the calculated GFR & GFRAA in patients over 70 years has not been determined. Clinical correlation is essential. Serum or plasma urea nitroge n measurement (mass/volume)Ordered By: Dr. Pate on 05-06-2022 Urea nitrogen [Mass/Vol] 22 mg/dL 7-18 [facility] Thin prep Papanicolaou smear with manual screeningOrdered By: Dr. Pate on 05-06-2022 Thin prep Papanicolaou smear with manual screening 22 U/L 15- [facility] Thin prep Papanicolaou smear with manual screening 7 5-15 [facility] Absolute lymphocyte countOrd ered By: Dr. Pate on 02-04-2022 Lymphocytes Auto (Unsp spec) [#/Vol] 1.02 10*3/uL 0.83-4.51 [facility] Basophil percentageOrdered B y: Dr. Pate on 02-04-2022 Basophils/100 WBC (Bld) 0.5 % 0-1 [facility] Bilirubin [Mass/Vol] 0.50 mg/dL 0.20-1.00 [facility] Comment on above: For patients on eltr ombopag therapy, use of Dimension [place] TBIL is not recommended. Chloride [Moles/Vol] 106 mmol/L 98-107 [facility] Eosinophils/100 WBC (Bld) 0.5 % 0-5 [facility] Glucose [Mass/Vol] 117 mg/dL 74-106 [facility] Comment on above: Fasting Glucose resu lt from 100 to 125 mg/dL suggests IMPAIRED HOMEOSTASIS per A.D.A. criteria. Neutrophils (Bld) [#/Vol] 2.9 10*3/uL 2.0-7.7 [facility] Neutrophils/100 WBC (Bld) 65.2 % 47-70 [facility] Potassium [Moles/Vol] 4.2 mmol/L 3.5-5.1 [facility] Comment on above: Slight Hemolysis, Re sult may be falsely increased. Protein [Mass/Vol] 7.7 g/dL 6.4-8.2 [facility] Sodium [Moles/Vol] 141 mmol/L 136-145 [facility] WBC (Bld) [#/Vol] 4.4 10*3/uL 4.4-11.0 [facility] Blood erythrocytes count (nu mber/volume)Ordered By: Dr. Pate on 02-04-2022 RBC (Bld) [#/Vol] 3.63 10*6/uL 4.2-5.4 [facility] Blood hemoglobin measurement (mass/volume)Ordered By: Dr. Pate on 02-04-2022 Hemoglobin (Bld) [Mass/Vol] 13.2 g/dL 12.0-15.0 [facility] Blood lymphocytes/100 leukoc ytesOrdered By: Dr. Pate on 02-04-2022 Lymphocytes/100 WBC (Bld) 23.3 % 19-41 [facility] Blood monocytes/100 leukocyt esOrdered By: Dr. Pate on 02-04-2022 Monocytes/100 WBC (Bld) 9.8 % 0-10 [facility] Blood platelet mean volumeOr dered By: Dr. Pate on 02-04-2022 Platelet mean volume (Bld) [Entitic vol] 10.4 fL 6.2-12.0 [facility] Determination of erythrocyte mean corpuscular volume (MCV)Ordered By: Dr. Pate on 02-04-2022 MCV (RBC) [Entitic vol] 111.0 fL 81-99 [facility] Hematocrit Auto (Bld) [Volum e fraction]Ordered By: Dr. Pate on 02-04-2022 Hematocrit (Bld) [Volume fraction] 40.3 % 37-47 [facility] Laboratory - Chemistry and C hemistry - challengeOrdered By: Dr. Pate on 02-04-2022 ALP [Catalytic activity/Vol] 82 U/L 45-117 [facility] ALT [Catalytic activity/Vol] 23 U/L 13-56 [facility] CO2 [Moles/Vol] 28.0 mmol/L 21.0-32.0 [facility] Globulin (S) [Mass/Vol] 4.3 g/dL 2.2-4.2 [facility] Urea nitrogen/Creatinine [Mass ratio] 16.0 mg/mg 10-20 [facility] Laboratory - Hematology and Cell countsOrdered By: Dr. Pate on 02-04-2022 Erythrocyte distribution width (RBC) [Entitic vol] 63.5 fL 35.1-43.9 [facility] Erythrocyte distribution width (RBC) [Ratio] 15.6 % 11.6-14.6 [facility] Immature granulocytes/100 WBC (Bld) 0.700 % 0.0-0.9 [facility] Comment on above: IG% - Immature Granu locytes (promyelocytes, myelocytes and metamyelocytes) > 1% indicates that a LEFT SHIFT is Present. MCH (RBC) [Entitic mass] 36.4 pg 27.0-32.0 [facility] Nucleated RBC/100 WBC (Bld) [Ratio] 0 % 0-5 [facility] MCHC Auto (RBC) [Mass/Vol]Or dered By: Dr. Pate on 02-04-2022 MCHC (RBC) [Mass/Vol] 32.8 g/dL 32-36 [facility] No Panel InformationOrdered By: Dr. Ptae on 02-04-2022 Estimated Creatinine Clearance Calc 37.77 ml/min [facility] Estimated GFR (MDRD) Amer 64 mL/min >60 [facility] Comment on above: GFR Calc Estimated GFR (MDRD) Non-Af Amer 53 mL/min >60 [facility] Comment on above: Non- GFR Calc Platelets bldOrdered By: Dr. Pate on 02-04-2022 Platelets (Bld) [#/Vol] 300 10*3/uL 150-450 [facility] Serum or plasma albumin niels urement (mass/volume)Ordered By: Dr. Pate on 02-04-2022 Albumin [Mass/Vol] 3.4 g/dL 3.2-5.0 [facility] Serum or plasma albumin/glob ulin mass ratioOrdered By: Dr. Pate on 02-04-2022 Albumin/Globulin [Mass ratio] 0.8 {ratio} 0.9-2.4 [facility] Serum or plasma calcium niels urement (mass/volume)Ordered By: Dr. Pate on 02-04-2022 Calcium [Mass/Vol] 9.4 mg/dL 8.5-10.1 [facility] Serum or plasma creatinine m easurement (mass/volume)Ordered By: Dr. Pate on 02-04-2022 Creatinine [Mass/Vol] 1.06 mg/dL 0.55-1.02 [facility] Comment on above: The validity of the calculated GFR & GFRAA in patients over 70 years has not been determined. Clinical correlation is essential. Serum or plasma urea nitroge n measurement (mass/volume)Ordered By: Dr. Pate on 02-04-2022 Urea nitrogen [Mass/Vol] 17 mg/dL 7-18 [facility] Thin prep Papanicolaou smear with manual screeningOrdered By: Dr. Pate on 02-04-2022 Thin prep Papanicolaou smear with manual screening 25 U/L 15-37 [facility] Comment on above: Slight Hemolysis, Re sult may be falsely increased. Thin prep Papanicolaou smear with manual screening 7 5-15 [facility] Absolute lymphocyte countOrd ered By: Dr. Emery on 01-19-2022 Lymphocytes Auto (Unsp spec) [#/Vol] 1.06 10*3/uL 0.83-4.51 [facility] Basophil percentageOrdered B y: Dr. Emery on 01-19-2022 Basophils/100 WBC (Bld) 0.4 % 0-1 [facility] Bilirubin [Mass/Vol] 0.50 mg/dL 0.20-1.00 [facility] Comment on above: For patients on eltr ombopag therapy, use of Dimension [place] TBIL is not recommended. Chloride [Moles/Vol] 106 mmol/L 98-107 [facility] Eosinophils/100 WBC (Bld) 1.1 % 0-5 [facility] Glucose [Mass/Vol] 122 mg/dL 74-106 [facility] Comment on above: Fasting Glucose resu lt from 100 to 125 mg/dL suggests IMPAIRED HOMEOSTASIS per A.D.A. criteria. Neutrophils (Bld) [#/Vol] 4.0 10*3/uL 2.0-7.7 [facility] Neutrophils/100 WBC (Bld) 70.3 % 47-70 [facility] Potassium [Moles/Vol] 3.8 mmol/L 3.5-5.1 [facility] Comment on above: Slight Hemolysis, Re sult may be falsely increased. Protein [Mass/Vol] 7.3 g/dL 6.4-8.2 [facility] Sodium [Moles/Vol] 140 mmol/L 136-145 [facility] WBC (Bld) [#/Vol] 5.6 10*3/uL 4.4-11.0 [facility] Blood erythrocytes count (nu mber/volume)Ordered By: Dr. Emery on 01-19-2022 RBC (Bld) [#/Vol] 3.58 10*6/uL 4.2-5.4 [facility] Blood hemoglobin measurement (mass/volume)Ordered By: Dr. Emery on 01-19-2022 Hemoglobin (Bld) [Mass/Vol] 13.5 g/dL 12.0-15.0 [facility] Blood lymphocytes/100 leukoc ytesOrdered By: Dr. Emery on 01-19-2022 Lymphocytes/100 WBC (Bld) 18.9 % 19-41 [facility] Blood monocytes/100 leukocyt esOrdered By: Dr. Emery on 01-19-2022 Monocytes/100 WBC (Bld) 8.9 % 0-10 [facility] Blood platelet mean volumeOr dered By: Dr. Emery on 01-19-2022 Platelet mean volume (Bld) [Entitic vol] 10.4 fL 6.2-12.0 [facility] Determination of erythrocyte mean corpuscular volume (MCV)Ordered By: Dr. Emery on 01-19-2022 MCV (RBC) [Entitic vol] 110.1 fL 81-99 [facility] Hematocrit Auto (Bld) [Volum e fraction]Ordered By: Dr. Emery on 01-19-2022 Hematocrit (Bld) [Volume fraction] 39.4 % 37-47 [facility] Laboratory - Chemistry and C hemistry - challengeOrdered By: Dr. Emery on 01-19-2022 ALP [Catalytic activity/Vol] 87 U/L 45-117 [facility] ALT [Catalytic activity/Vol] 21 U/L 13-56 [facility] CO2 [Moles/Vol] 27.0 mmol/L 21.0-32.0 [facility] [facility] Gl[facility] (S) [Mass/Vol] 4.0 g/dL 2.2-4.2 [facility] Urea nitrogen/Creatinine [Mass ratio] 16.0 mg/mg 10-20 [facility] Laboratory - Hematology and Cell countsOrdered By: Dr. Emery on 01-19-2022 Erythrocyte distribution width (RBC) [Entitic vol] 61.0 fL 35.1-43.9 [facility] Erythrocyte distribution width (RBC) [Ratio] 15.3 % 11.6-14.6 [facility] Immature granulocytes/100 WBC (Bld) 0.400 % 0.0-0.9 [facility] Comment on above: IG% - Immature Granu locytes (promyelocytes, myelocytes and metamyelocytes) > 1% indicates that a LEFT SHIFT is Present. MCH (RBC) [Entitic mass] 37.7 pg 27.0-32.0 [facility] Nucleated RBC/100 WBC (Bld) [Ratio] 0 % 0-5 [facility] MCHC Auto (RBC) [Mass/Vol]Or dered By: Dr. Emery on 01-19-2022 MCHC (RBC) [Mass/Vol] 34.3 g/dL 32-36 [facility] No Panel InformationOrdered By: Dr. Emery on 01-19-2022 Estimated GFR (MDRD) Amer 64 mL/min >60 [facility] Comment on above: GFR Calc Estimated GFR (MDRD) Non-Af Amer 53 mL/min >60 [facility] Comment on above: Non- GFR Calc Thyroid Stimulating Hormone (TSH) 1.77 uIU/mL 0.358-3.74 [facility] Vitamin D 25-Hydroxy 28.7 ng/mL [facility] Comment on above: Vitamin D 25(OH) Sta tus Range Deficiency <20 ng/mL (50nmol/L) Insufficiency 20 - 30 ng/mL (50 - 75 nmol/L) Sufficiency 30 - 100 ng/mL (75 - 250 nmol/L) Toxicity >100 ng/mL (>250 nmol/L) Platelets bldOrdered By: Dr. Emery on 01-19-2022 Platelets (Bld) [#/Vol] 258 10*3/uL 150-450 [facility] Serum or plasma albumin niels urement (mass/volume)Ordered By: Dr. Emery on 01-19-2022 Albumin [Mass/Vol] 3.3 g/dL 3.2-5.0 [facility] Serum or plasma albumin/glob ulin mass ratioOrdered By: Dr. Emery on 01-19-2022 Albumin/Globulin [Mass ratio] 0.8 {ratio} 0.9-2.4 [facility] Serum or plasma calcium niels urement (mass/volume)Ordered By: Dr. Emery on 01-19-2022 Calcium [Mass/Vol] 9.2 mg/dL 8.5-10.1 [facility] Serum or plasma creatinine m easurement (mass/volume)Ordered By: Dr. Emery on 01-19-2022 Creatinine [Mass/Vol] 1.06 mg/dL 0.55-1.02 [facility] Comment on above: The validity of the calculated GFR & GFRAA in patients over 70 years has not been determined. Clinical correlation is essential. Serum or plasma urea nitroge n measurement (mass/volume)Ordered By: Dr. Emery on 01-19-2022 Urea nitrogen [Mass/Vol] 17 mg/dL 7- [facility] Thin prep Papanicolaou smear with manual screeningOrdered By: Dr. Emery on 01-19-2022 Thin prep Papanicolaou smear with manual screening 24 U/L 15- [facility] Comment on above: Slight Hemolysis, Re sult may be falsely increased. Thin prep Papanicolaou smear with manual screening 7 - [facility] Absolute lymphocyte counton 11-04-2021 Lymphocytes Auto (Unsp spec) [#/Vol] 1.00 10*3/uL 0.83-4.51 [facility] Work Phone: Basophil percentageon 2021 Basophils/100 WBC (Bld) 0.3 % 0-1 [facility] Work Phone: Bilirubin [Mass/Vol] 0.50 mg/dL 0.20-1.00 [facility] Work Phone: Comment on above: For patients on eltr ombopag therapy, use of Dimension [place] TBIL is not recommended. Chloride [Moles/Vol] 109 mmol/L 98-107 [facility] Work Phone: Eosinophils/100 WBC (Bld) 1.0 % 0-5 [facility] Work Phone: Glucose [Mass/Vol] 126 mg/dL 74-106 [facility] Work Phone: Comment on above: Fasting Glucose resu lt greater than or equal to 126 mg/dL suggests DIABETES MELLITUS per A.D.A. criteria. Neutrophils (Bld) [#/Vol] 4.5 10*3/uL 2.0-7.7 [facility] Work Phone: Neutrophils/100 WBC (Bld) 75.0 % 47-70 [facility] Work Phone: Potassium [Moles/Vol] 3.7 mmol/L 3.5-5.1 [facility] Work Phone: Comment on above: Slight Hemolysis, Re sult may be falsely increased. Protein [Mass/Vol] 7.5 g/dL 6.4-8.2 [facility] Work Phone: Sodium [Moles/Vol] 141 mmol/L 136-145 [facility] Work Phone: WBC (Bld) [#/Vol] 6.0 10*3/uL 4.4-11.0 [facility] Work Phone: Blood erythrocytes count (nu mber/volume)on 11-04-2021 RBC (Bld) [#/Vol] 3.60 10*6/uL 4.2-5.4 [facility] Work Phone: Blood hemoglobin measurement (mass/volume)on 11-04-2021 Hemoglobin (Bld) [Mass/Vol] 13.3 g/dL 12.0-15.0 [facility] Work Phone: Blood lymphocytes/100 leukoc yteson 11-04-2021 Lymphocytes/100 WBC (Bld) 16.7 % 19-41 [facility] Work Phone: Blood monocytes/100 leukocyt eson 11-04-2021 Monocytes/100 WBC (Bld) 6.5 % 0-10 [facility] Work Phone: Blood platelet mean volumeon 11-04-2021 Platelet mean volume (Bld) [Entitic vol] 10.5 fL 6.2-12.0 [facility] Work Phone: [phone] Determination of erythrocyte mean corpuscular volume (MCV)on 11-04-2021 MCV (RBC) [Entitic vol] 111.9 fL 81-99 [facility] Work Phone: Hematocrit Auto (Bld) [Volum e fraction]on 11-04-2021 Hematocrit (Bld) [Volume fraction] 40.3 % 37-47 [facility] Work Phone: [phone] Laboratory - Chemistry and C hemistry - challengeon 11-04-2021 ALP [Catalytic activity/Vol] 82 U/L 45-117 [facility] Work Phone: ALT [Catalytic activity/Vol] 22 U/L 13-56 [facility] Work Phone: CO2 [Moles/Vol] 26.0 mmol/L 21.0-32.0 [facility] Work Phone: [phone] Globulin (S) [Mass/Vol] 4.2 g/dL 2.2-4.2 [facility] Work Phone: [phone] Urea nitrogen/Creatinine [Mass ratio] 14.0 mg/mg 10-20 [facility] Work Phone: Laboratory - Hematology and Cell countson 11-04-2021 Erythrocyte distribution width (RBC) [Entitic vol] 55.7 fL 35.1-43.9 [facility] Work Phone: [phone] Erythrocyte distribution width (RBC) [Ratio] 13.7 % 11.6-14.6 [facility] Work Phone: [phone] Immature granulocytes/100 WBC (Bld) 0.500 % 0.0-0.9 [facility] Work Phone: [phone] Comment on above: IG% - Immature Granu locytes (promyelocytes, myelocytes and metamyelocytes) > 1% indicates that a LEFT SHIFT is Present. MCH (RBC) [Entitic mass] 36.9 pg 27.0-32.0 [facility] Work Phone: [phone] Nucleated RBC/100 WBC (Bld) [Ratio] 0 % 0-5 [facility] Work Phone: [phone] MCHC Auto (RBC) [Mass/Vol]on 11-04-2021 MCHC (RBC) [Mass/Vol] 33.0 g/dL 32-36 [facility] Work Phone: No Panel Informationon 11-04 Estimated Creatinine Clearance Calc 35.12 ml/min [facility] Work Phone: Estimated GFR (MDRD) Amer 59 mL/min >60 [facility] Work Phone: Comment on above: GFR Calc Estimated GFR (MDRD) Non-Af Amer 49 mL/min >60 [facility] Work Phone: Comment on above: Non- GFR Calc Platelets bldon 11-04-2021 Platelets (Bld) [#/Vol] 290 10*3/uL 150-450 [facility] Work Phone: Serum or plasma albumin niels urement (mass/volume)on 11-04-2021 Albumin [Mass/Vol] 3.3 g/dL 3.2-5.0 [facility] Work Phone: Serum or plasma albumin/glob ulin mass ratioon 11-04-2021 Albumin/Globulin [Mass ratio] 0.8 {ratio} 0.9-2.4 [facility] Work Phone: Serum or plasma calcium niels urement (mass/volume)on 11-04-2021 Calcium [Mass/Vol] 9.3 mg/dL 8.5-10.1 [facility] Work Phone: Serum or plasma creatinine m easurement (mass/volume)on 11-04-2021 Creatinine [Mass/Vol] 1.14 mg/dL 0.55-1.02 [facility] Work Phone: Comment on above: The validity of the calculated GFR & GFRAA in patients over 70 years has not been determined. Clinical correlation is essential. Serum or plasma urea nitroge n measurement (mass/volume)on 11-04-2021 Urea nitrogen [Mass/Vol] 16 mg/dL 7-18 [facility] Work Phone: Thin prep Papanicolaou smear with manual screeningon 11-04-2021 Thin prep Papanicolaou smear with manual screening 23 U/L 15-37 [facility] Work Phone: Comment on above: Slight Hemolysis, Re sult may be falsely increased. Thin prep Papanicolaou smear with manual screening 6 5-15 [facility] Work Phone: Blood platelet adequacy dete ction by light microscopyon 11-24-2018 Platelets LM Ql (Bld) ADEQUATE ADEQ [facility] Blood platelet morphology de termination (nominal result)on 11-24-2018 Platelet morphology finding Nom (Bld) LARGE [facility] Laboratory - Hematology and Cell countson 11-24-2018 Anisocytosis Ql (Bld) 2+ [facility] Macrocytes detectionon 11-24 Macrocytes Ql (Bld) 1+ [facility] Target cell detectionon Target cells LM Ql (Bld) RARE [facility] Hypochromatic red blood cell detectionon 10-27-2018 Hypochromia Ql (Bld) 1+ [facility] No Panel Informationon 10-27 Differential Comment SCANNED [facility] Comment on above: DIMORPHIC RBC POPULA TION NOTED Review by pathologiston Pathologist review Jack (Unsp spec) [Interp] Reviewed [facility] Comment on above: Previous reported re sult: Jahaira corral Edited by: URIEL on 10/28/18:1304 AMENDED REPORT 10/28/18 1304 PATH REV previously reported as: Jahaira corral Absolute reticulocyte counto n 10-13-2018 Reticulocytes (Bld) [#/Vol] 0.00 10*3/uL 0-5 [facility] Laboratory - Hematology and Cell countson 09-29-2018 Erythrocyte distribution width (RBC) [Ratio] 24.6 % High 11.6-14.6 [facility] No Panel Informationon 09-29 Red Cell Distribution Width Diff 73.7 fl High 35.1-43.9 [facility] 24.6 % High 11.6-14.6 [facility] 73.7 fl High 35.1-43.9 [facility] Total cell counton 9 Cells counted [employer] (Bld/Tiss) [#] Not Reportable [facility] RBC morphologyon 09-21-2018 RBC morphology finding Nom (Bld) N CHROM NORMAL NORM C&C [facility] [employer] mix RAST testo n 06-27-2018 LDH [Catalytic activity/Vol] 283 U/L High 84-246 [facility] Comment on above: Slight Hemolysis, Re sult may be falsely increased. Iron measurement (mass/mass) on 06-27-2018 Iron (Unsp spec) [Mass/Mass] 54 ug/dL 50-170 [facility] Comment on above: Slight Hemolysis, Re sult may be falsely increased. JAK2 V617F mutation detectio non 06-27-2018 JAK2 gene [id number] [facility] Ql (Bld/Tiss) Comment High . [facility] Comment on above: Result: POSITIVE for the detection of the V617F mutation.Interpretation: The assay detected the presence of a G toT nucleotide change encoding the V617F mutation withinJAK2. Interpretation of this result should be made in thecontext of other clinical, morphologic, and cytogeneticfindings. No Panel Informationon 06-27 JAK2 Mutation Comment . [facility] Comment on above: JAK2 is a cytoplasmi c tyrosine kinase with a ferrell role insignal transduction from multiple hematopoietic growthfactor receptors. A point mutation within exon 14 of theJAK2 gene ([id number]) encoding a valine to phenylalaninesubstitution at position [...] specific to JAK2 wild type (WT) and MSO3azceyp V617F. The [employer] Absolute Quantitation softwarewill compare the patient specimen valuse to the standardcurves and generate percent values for wild type andmutant type. In vitro studies have indicated that thisassay has an analytical sensitivity of 1%.References:Matthew EJ, Jean LM, Zachary PJ, et al. Acquiredmutation of the tyrosine kinase JAK2 in humanmyeloproliferative disorders. Lancet. 2005 Jun 07;365(1169):2278-2712. Travis Santiago, Guido Haynes, Mary Rosas JP. Aunique clonal JAK2 mutation leading to constitutivesignaling causes polycythaemia vera. Nature. 2005 Jul 17;703(6645):4940-8030.iNcolas R, Bolivar F, Jolynn , et al. A uwil-cq-hsfkzorz mutation of JAK2 in myeloproliferative disorders.N Engl J Med. 2005 Jul 17; 352(87):2797-2740. Miscellaneous Test See comment [facility] Comment on above: TEST RESULT UNITS RE [...] was developed and its performancecharacteristics determined by [employer] ([employer]). It has not been cleared orapproved by the U.S. Food and Drug Administration. The DNAprobe vendor for this study was [employer] ([employer]).Specimen Type Comment: BLOODDirector Review: Comment: Travis Chavez, PhD, [facility] .Specimen Type Comment: BLOODCells Counted 5Cells Analyzed [...] chromosomal changes occur.Director Review: Comment:AMIE FERREIRA, PHD, [facility] TESTING PERFORMED AT [facility]. ORIGINAL REPORT ON FILE IN LAB CONTAINS ADDITIONAL TEST SITE INFORMATION. Total Iron Binding Capacity 289 ug/dL 250-450 [facility] 289 ug/dL 250-450 [facility] See comment [facility] Comment . [facility] Serum or plasma erythropoiet in (EPO) measurement (units/volume)on 06-27-2018 Erythropoietin (EPO) Qn 4.2 mIU/mL 2.6-18.5 [facility] Comment on above: Jadon [employer] UniC el DxI 800 Immunoassay SystemValues obtained with different assay methods or kits cannotbe used interchangeably. Results cannot be interpreted asabsolute evidence of the presence or absence of malignantdisease.Performed at: [facility] [id number] [place], [place] [id number] Director: Mj Coronado MD, Phone: [phone] at: [facility] [id number] [place], [place] [id number] Director: Mj Coronado MD, Phone: [phone] at: CB - [facility] [id number] [place], [place] [id number] Director: Ruddy Parks PhD, Phone: [phone] Serum or plasma ferritin hayden surement (mass/volume)on 06-27-2018 Ferritin [Mass/Vol] 561 ng/mL High 8-252 [facility] Serum or plasma iron saturat ion measurement (mass fraction)on 06-27-2018 Iron saturation [Mass fraction] 18.7 % 15.0-55.0 [facility] Serum or plasma uric acid me asurement (mass/volume)on 06-27-2018 Urate [Mass/Vol] 4.2 mg/dL 2.6-6.0 [facility] Comment on above: The drugs N-Acetylcy steine and Metamizole may falsely depress this assay. Thin prep Papanicolaou smear with manual screeningon 06-27-2018 Thin prep Papanicolaou smear with manual screening 283 U/L 84-246 [facility] Comment on above: Slight Hemolysis, Re sult may be falsely increased. Vital Signs Date Time Vital Sign Value Performing Clinician Faci lity 01-05-2025 09:23-0400 Body height 165.[address] Dago Emery MD Work Phone: [facility] 11-28-2024 08:58-0400 Diastolic blood pressure 56 mm[Hg] Dr. Dago Emery MD Work Phone: [facility] 11-28-2024 08:58-0400 Systolic blood pressure 119 mm[Hg] Dr. Dago Emery MD Work Phone: [facility] 11-28-2024 08:04-0400 Body temperature 98.1 [degF] Dr. Dago Emery MD Work Phone: [facility] 11-28-2024 08:04-0400 Heart rate 69 /min Dr. Dago Emery MD Work Phone: [facility] 11-28-2024 08:04-0400 Respiratory rate 16 /min Dr. Dago Emery MD Work Phone: [facility] 11-28-2024 08:04-0400 SaO2% (BldA) [Mass fraction] 93 % Dr. Dago Emery MD Work Phone: 4(144)530-763481 [place] [address] 11-22-2024 14:50-0400 Body height 165.[address] Dago Emery MD Work Phone: 0(773)046-072281 [place] [address] 11-22-2024 14:50-0400 Body weight 85.[address] Dago Emery MD Work Phone: 6(323)362-900981 [place] [address] 11-21-2024 14:00-0400 Body mass index (BMI) [Ratio] 31.4 kg/m2 Dr. Dago Emery MD Work Phone: 9(199)484-269681 [place] [address] 11-01-2024 16:35-0400 Diastolic blood pressure 71 mm[Hg] Dr. Dago Emery MD Work Phone: 6(017)157-737881 [place] [address] 11-01-2024 16:35-0400 Heart rate 64 /min Dr. Dago Emery MD Work Phone: 6(824)740-369581 [place] [address] 11-01-2024 16:35-0400 Respiratory rate 16 /min Dr. Dago Emery MD Work Phone: 3(146)416-884581 [place] [address] 11-01-2024 16:35-0400 SaO2% (BldA) [Mass fraction] 96 % Dr. Dago Emery MD Work Phone: 6(295)778-165881 [place] [address] 11-01-2024 16:35-0400 Systolic blood pressure 163 mm[Hg] Dr. Dago Emery MD Work Phone: 9(335)223-638281 [place] [address] 11-01-2024 16:20-0400 Body temperature 98.5 [degF] Dr. Dago Emery MD Work Phone: 1(615)331-812081 [place] [address] 11-01-2024 15:07-0400 Body height 165.[address] Dago Emery MD Work Phone: 4(380)547-901081 [place] [address] 11-01-2024 15:07-0400 Body mass index (BMI) [Ratio] 32.5 kg/m2 Dr. Dago Emery MD Work Phone: 7(872)076-804281 [place] [address] 11-01-2024 15:07-0400 Body weight 88.[address] Dago Emery MD Work Phone: 3(879)025-213138 [place] [address] 11-01-2024 14:26-0400 Body mass index (BMI) [Ratio] 32.8 kg/m2 Dr. Dago Emery MD Work Phone: 4(075)667-159038 [place] [address] 11-01-2024 14:26-0400 Body temperature 97.7 [degF] Dr. Dago Emery MD Work Phone: 4(182)348-591381 [place] [address] 11-01-2024 14:26-0400 Body weight 89.[address] Dago Emery MD Work Phone: 6(724)593-999581 [place] [address] 11-01-2024 14:26-0400 Diastolic blood pressure 68 mm[Hg] Dr. aDgo Emery MD Work Phone: 8(571)447-636181 [place] [address] 11-01-2024 14:26-0400 Heart rate 67 /min Dr. Dago Emery MD Work Phone: 4(454)221-102781 [place] [address] 11-01-2024 14:26-0400 Respiratory rate 19 /min Dr. Dago Emery MD Work Phone: 6(552)226-334281 [place] [address] 11-01-2024 14:26-0400 SaO2% (BldA) [Mass fraction] 96 % Dr. Dago Emery MD Work Phone: 2(858)577-713881 [place] [address] 11-01-2024 14:26-0400 Systolic blood pressure 153 mm[Hg] Dr. Dago Emery MD Work Phone: 9(975)045-225938 [place] [address] 10-21-2024 13:13-0400 Body temperature 98.3 [degF] Dr. Dago Emery MD Work Phone: 7(033)014-019338 [place] [address] 10-21-2024 13:13-0400 Diastolic blood pressure 67 mm[Hg] Dr. Dago Emery MD Work Phone: 6(597)071-936238 [place] [address] 10-21-2024 13:13-0400 Heart rate 62 /min Dr. Dago Emery MD Work Phone: 4(891)353-802538 [place] [address] 10-21-2024 13:13-0400 Respiratory rate 18 /min Dr. Dago Emery MD Work Phone: 8(498)715-171903 [address] 10-21-2024 13:13-0400 SaO2% (BldA) [Mass fraction] 95 % Dr. Dago Emery MD Work Phone: 1(251)238-819981 [place] [address] 10-21-2024 13:13-0400 Systolic blood pressure 129 mm[Hg] Dr. Dago Emery MD Work Phone: 0(503)571-862681 [place] [address] 10-16-2024 22:13-0400 Inhaled oxygen flow rate 2 L/min Dr. Dago Emery MD Work Phone: 3(912)765-344281 [place] [address] 10-16-2024 20:13-0400 Body height 165.[address] Dago Emery MD Work Phone: 4(739)602-540181 [place] [address] 10-16-2024 20:13-0400 Body mass index (BMI) [Ratio] 31.1 kg/m2 Dr. Dago Emery MD Work Phone: 9(923)095-783281 [place] [address] 10-16-2024 20:13-0400 Body weight [address] Dago Emery MD Work Phone: 1(600)239-770981 [place] [address] 10-11-2024 15:05-0400 Body height 165.[address] Dago Emery MD Work Phone: 8(235)618-466281 [place] [address] 10-11-2024 15:05-0400 Body temperature 98.2 [degF] Dr. Dago Emery MD Work Phone: 9(510)023-261081 [place] [address] 10-11-2024 15:05-0400 Diastolic blood pressure 73 mm[Hg] Dr. Dago Emery MD Work Phone: 2(445)340-788381 [place] [address] 10-11-2024 15:05-0400 Heart rate 52 /min Dr. Dago Emery MD Work Phone: 5(136)318-781581 [place] [address] 10-11-2024 15:05-0400 Respiratory rate 16 /min Dr. Dago Emery MD Work Phone: 4(508)935-351281 [place] [address] 10-11-2024 15:05-0400 SaO2% (BldA) [Mass fraction] 98 % Dr. Dago Emery MD Work Phone: 4(310)117-670438 [place] [address] 10-11-2024 15:05-0400 Systolic blood pressure 169 mm[Hg] Dr. Dago Emery MD Work Phone: 8(311)539-353981 [place] [address] 09-20-2024 14:30-0400 Body height 165.[address] Dago Emery MD Work Phone: 4(509)498-420881 [place] [address] 09-20-2024 14:30-0400 Body mass index (BMI) [Ratio] 32.4 kg/m2 Dr. Dago Emery MD Work Phone: 4(366)491-253981 [place] [address] 09-20-2024 14:30-0400 Body weight 88.[address] Dago Emery MD Work Phone: 4(101)026-575981 [place] [address] 09-20-2024 14:30-0400 Diastolic blood pressure 73 mm[Hg] Dr. Dago Emery MD Work Phone: 6(806)755-591481 [place] [address] 09-20-2024 14:30-0400 Heart rate 56 /min Dr. Dago Emery MD Work Phone: 9(707)961-342381 [place] [address] 09-20-2024 14:30-0400 Respiratory rate 18 /min Dr. Dago Emery MD Work Phone: 3(013)152-147381 [place] [address] 09-20-2024 14:30-0400 SaO2% (BldA) [Mass fraction] 95 % Dr. Dago Emery MD Work Phone: 1(512)098-977581 [place] [address] 09-20-2024 14:30-0400 Systolic blood pressure 124 mm[Hg] Dr. Dago Emery MD Work Phone: 9(750)670-235581 [place] [address] 07-10-2024 13:45-0400 Body height 165.[address] Dago Emery MD Work Phone: 7(767)397-276781 [place] [address] 07-10-2024 13:45-0400 Body temperature 97.8 [degF] Dr. Dago Emery MD Work Phone: 6(533)792-992981 [place] [address] 07-10-2024 13:45-0400 Diastolic blood pressure 66 mm[Hg] Dr. Dago Emery MD Work Phone: [facility] 07-10-2024 13:45-0400 Heart rate 46 /min Dr. Dago Emery MD Work Phone: [facility] 07-10-2024 13:45-0400 Respiratory rate 16 /min Dr. Dago Emery MD Work Phone: [facility] 07-10-2024 13:45-0400 SaO2% (BldA) [Mass fraction] 98 % Dr. Dago Emery MD Work Phone: [facility] 07-10-2024 13:45-0400 Systolic blood pressure 104 mm[Hg] Dr. Dago Emery MD Work Phone: 3(663)482-219338 [place] [address] 02-22-2024 14:10-0500 Body weight 88.[address] Dago Emery MD Work Phone: 1(611)013-663503 [address] 11-04-2022 14:40-0400 Body height 165.[address] Dago Emery Work Phone: 8(458)693-609338 [place] [address] 11-04-2022 14:40-0400 Body mass index (BMI) [Ratio] 34.2 kg/m2 Dr. Dago Emery Work Phone: 6(881)860-186538 [place] [address] 11-04-2022 14:40-0400 Body temperature 98 [degF] Dr. Dago Emery Work Phone: 4(365)507-355738 [place] [address] 11-04-2022 14:40-0400 Body weight 93.[address] Dago Emery Work Phone: [facility] 11-04-2022 14:40-0400 Diastolic blood pressure 74 mm[Hg] Dr. Dago Emery Work Phone: 2(498)486-121338 [place] [address] 11-04-2022 14:40-0400 Heart rate 51 /min Dr. Dago Emery Work Phone: [facility] 11-04-2022 14:40-0400 Respiratory rate 16 /min Dr. Dago Emery Work Phone: [facility] 11-04-2022 14:40-0400 SaO2% (BldA) [Mass fraction] 98 % Dr. Dago Emery Work Phone: 9(801)476-008538 [place] [address] 11-04-2022 14:40-0400 Systolic blood pressure 140 mm[Hg] Dr. Dago Emery Work Phone: 1(001)581-055238 [place] [address] 10-14-2022 12:50-0400 Body temperature 97.6 [degF] Dr. Dago Emery Work Phone: 2(115)265-412281 [place] [address] 10-14-2022 12:50-0400 Diastolic blood pressure 47 mm[Hg] Dr. Dago Emery Work Phone: 6(006)213-948781 [place] [address] 10-14-2022 12:50-0400 Heart rate 70 /min Dr. Dago Emery Work Phone: 4(417)362-364181 [place] [address] 10-14-2022 12:50-0400 Respiratory rate 18 /min Dr. Dago Emery Work Phone: 1(481)220-199081 [place] [address] 10-14-2022 12:50-0400 SaO2% (BldA) [Mass fraction] 94 % Dr. Dago Emery Work Phone: 4(902)697-923481 [place] [address] 10-14-2022 12:50-0400 Systolic blood pressure 141 mm[Hg] Dr. Dago Emery Work Phone: 9(940)073-551381 [place] [address] 10-13-2022 09:00-0400 Body mass index (BMI) [Ratio] 34.4 kg/m2 Dr. Dago Emery Work Phone: 8(410)745-271581 [place] [address] 10-13-2022 09:00-0400 Body weight 93.[address] Dago Emery Work Phone: 2(635)118-806181 [place] [address] 08-05-2022 13:49-0400 Body height 165.[address] Dago Emery Work Phone: 0(543)161-658538 [place] [address] 08-05-2022 13:49-0400 Body mass index (BMI) [Ratio] 34.2 kg/m2 Dr. Dago Emery Work Phone: 9(636)258-197838 [place] [address] 08-05-2022 13:49-0400 Body temperature 98.3 [degF] Dr. Dago Emery Work Phone: 6(430)517-770838 [place] [address] 08-05-2022 13:49-0400 Body weight 93.[address] Dago Emery Work Phone: [facility] 08-05-2022 13:49-0400 Diastolic blood pressure 83 mm[Hg] Dr. Dago Emery Work Phone: 5(412)846-026738 [place] [address] 08-05-2022 13:49-0400 Heart rate 45 /min Dr. Dago Emery Work Phone: 2(334)012-512938 [place] [address] 08-05-2022 13:49-0400 Respiratory rate 18 /min Dr. Dago Emery Work Phone: 9(954)274-026938 [place] [address] 08-05-2022 13:49-0400 SaO2% (BldA) [Mass fraction] 99 % Dr. Dago Emery Work Phone: 2(979)078-930638 [place] [address] 08-05-2022 13:49-0400 Systolic blood pressure 137 mm[Hg] Dr. Dago Emery Work Phone: 6(400)876-134703 [address] 05-06-2022 14:19-0500 Body height 165.[address] Dago Emery Work Phone: 0(625)656-690638 [place] [address] 05-06-2022 14:19-0500 Body mass index (BMI) [Ratio] 35.5 kg/m2 Dr. Dago Emery Work Phone: 1(660)129-626938 [place] [address] 05-06-2022 14:19-0500 Body temperature 98.3 [degF] Dr. Dago Emery Work Phone: 5(422)409-157238 [place] [address] 05-06-2022 14:19-0500 Body weight 96.[address] Dago Emery Work Phone: 6(293)656-357538 [place] [address] 05-06-2022 14:19-0500 Diastolic blood pressure 72 mm[Hg] Dr. Dago Emery Work Phone: 6(464)206-500238 [place] [address] 05-06-2022 14:19-0500 Heart rate 46 /min Dr. Dago Emery Work Phone: [facility] 05-06-2022 14:19-0500 Respiratory rate 18 /min Dr. Dago Emery Work Phone: 8(077)470-668838 [place] [address] 05-06-2022 14:19-0500 SaO2% (BldA) [Mass fraction] 98 % Dr. Dago Emery Work Phone: 8(637)945-981938 [place] [address] 05-06-2022 14:19-0500 Systolic blood pressure 121 mm[Hg] Dr. Dago Emery Work Phone: 7(511)020-916738 [place] [address] 04-12-2022 08:38-0500 Diastolic blood pressure 94 mm[Hg] Dr. Dago Emery Work Phone: 5(289)926-116481 [place] [address] 04-12-2022 08:38-0500 Heart rate 60 /min Dr. Dago Emery Work Phone: 1(620)026-543481 [place] [address] 04-12-2022 08:38-0500 Respiratory rate 16 /min Dr. Dago Emery Work Phone: 6(404)254-298781 [place] [address] 04-12-2022 08:38-0500 SaO2% (BldA) [Mass fraction] 96 % Dr. Dago Emery Work Phone: 4(635)700-555781 [place] [address] 04-12-2022 08:38-0500 Systolic blood pressure 178 mm[Hg] Dr. Dago Emery Work Phone: 7(555)766-752381 [place] [address] 04-12-2022 08:33-0500 Body height 165.[address] Dago Emery Work Phone: 2(265)219-776981 [place] [address] 04-12-2022 08:33-0500 Body mass index (BMI) [Ratio] 36.3 kg/m2 Dr. Dago Emery Work Phone: 3(254)424-253881 [place] [address] 04-12-2022 08:33-0500 Body temperature 98.5 [degF] Dr. Dago Emery Work Phone: 0(366)820-824981 [place] [address] 04-12-2022 08:33-0500 Body weight 99.[address] Dago Emery Work Phone: 8(676)473-101181 [place] [address] 02-04-2022 14:20-0500 Body mass index (BMI) [Ratio] 34.4 kg/m2 Dr. Dago Emery Work Phone: [facility] 02-04-2022 14:20-0500 Body temperature 97.8 [degF] Dr. Dago Emery Work Phone: [facility] 02-04-2022 14:20-0500 Body weight 93.[address] Dago Emery Work Phone: [facility] 02-04-2022 14:20-0500 Diastolic blood pressure 79 mm[Hg] Dr. Dago Emery Work Phone: [facility] 02-04-2022 14:20-0500 Heart rate 51 /min Dr. Dago Emery Work Phone: [facility] 02-04-2022 14:20-0500 Respiratory rate 16 /min Dr. Dago Emery Work Phone: [facility] 02-04-2022 14:20-0500 SaO2% (BldA) [Mass fraction] 97 % Dr. Dago Emery Work Phone: [facility] 02-04-2022 14:20-0500 Systolic blood pressure 132 mm[Hg] Dr. Dago Emery Work Phone: [facility] 11-04-2021 13:59-0400 Body height 165.[address] Dago Emery Work Phone: [facility] Work Phone: 11-04-2021 13:59-0400 Body mass index (BMI) [Ratio] 34.4 kg/m2 Dr. Dago Emery Work Phone: [facility] Work Phone: 11-04-2021 13:59-0400 Body temperature 97.4 [degF] Dr. Dago Emery Work Phone: [facility] Work Phone: 11-04-2021 13:59-0400 Body weight [address] Dago Emery Work Phone: [facility] Work Phone: 11-04-2021 13:59-0400 Diastolic blood pressure 80 mm[Hg] Dr. Dago Emery Work Phone: [facility] Work Phone: 11-04-2021 13:59-0400 Heart rate 51 /min Dr. Dago Emery Work Phone: [facility] Work Phone: 11-04-2021 13:59-0400 Respiratory rate 16 /min Dr. Dago Emery Work Phone: [facility] Work Phone: 11-04-2021 13:59-0400 SaO2% (BldA) [Mass fraction] 97 % Dr. Dago Emery Work Phone: [facility] Work Phone: 11-04-2021 13:59-0400 Systolic blood pressure 130 mm[Hg] Dr. Dago Emery Work Phone: [facility] Work Phone: 04-25-2020 14:46-0500 Body mass index (BMI) [Ratio] 37.8 kg/m2 Dr. Dago Emery Work Phone: [facility] 04-25-2020 14:46-0500 Body temperature 98 [degF] Dr. Dago Emery Work Phone: [facility] 04-25-2020 14:46-0500 Body weight 99.[address] Dago Emery Work Phone: [facility] 04-25-2020 14:46-0500 Diastolic blood pressure 87 mm[Hg] Dr. Dago Emery Work Phone: [facility] 04-25-2020 14:46-0500 Heart rate 54 /min Dr. Dago Emery Work Phone: [facility] 04-25-2020 14:46-0500 Respiratory rate 17 /min Dr. Dago Emery Work Phone: [facility] 04-25-2020 14:46-0500 SaO2% (BldA) [Mass fraction] 97 % Dr. Dago Emery Work Phone: [facility] 04-25-2020 14:46-0500 Systolic blood pressure 155 mm[Hg] Dr. Dago Emery Work Phone: [facility] Encounters Encounter Date Encounter Type Care Provider Facility Start: 01-31-2025 ambulatory [facility] Facility:[facility] Start: 01-24-2025 End: 01-24-2025 [facility] Start: 01-17-2025 End: 01-17-2025 ambulatory [facility] Facility:[facility] Start: 01-10-2025 ambulatory Efewongbe Oleghe [facility] Fa cility:[facility] Start: 01-03-2025 ambulatory Efewongbe Oleghe O[facility] Fa cility:[facility] Start: 01-03-2025 Irvin Reeves Start: 12-28-2024 ambulatory Efewongbe Oleghe O[facility] Fa cility:[facility] Start: 12-28-2024 Irvin Reeves Start: 12-20-2024 ambulatory Efewongbe Oleghe O[facility] Fa cility:[facility] Start: 12-20-2024 Irvin Reeves Start: 12-13-2024 End: 12-13-[address] Dago Emery MD Work Phone: -[facility] Start: 12-13-2024 End: 12-13-2024 Fouzia HAINES -[facility] Work Phone: Start: 12-13-2024 ambulatory Efewongbe Oleghe O[facility] Fa cility:[facility] Start: 12-13-2024 Irvin Reeves Start: 12-08-2024 ambulatory Efewongbe Oleghe O[facility] Fa cility:[facility] Start: 12-08-2024 Irvin Reeves Start: 12-06-2024 ambulatory Irvin SARABIA Grisel cility:[facility] Start: 12-06-2024 Irvin Reeves Start: 12-05-2024 End: 12-05-[address] Dago Emery MD Work Phone: [facility] Start: 12-05-2024 End: 12-05-2024 [facility] Work Phone: Start: 11-30-2024 End: 11-30-[address] Dago Emery MD Work Phone: [facility] Start: 11-30-2024 End: 11-30-2024 [facility] Work Phone: Start: 11-29-2024 Irvin Reeves Start: 11-28-2024 End: 11-29-[address] Dago Emery MD Work Phone: [facility] Start: 11-28-2024 End: 11-28-2024 Dr. Irvin Mckenna MD [facility] Work Phone: Start: 11-01-2024 Non-patient / Non-visit Pio Ortiz nd DO -[facility] Start: 11-01-2024 End: 11-01-2024 Admission to same day surgery center Pio Friend DO -Endoscopy Work Phone: Start: 11-01-2024 End: 11-01-2024 Pio Friend DO -Endoscopy Work Phone: Start: 11-01-2024 End: 11-01-[address] Dago Emery MD Work Phone: -Endoscopy Start: 10-31-2024 Non-patient / Non-visit Pio Ortiz nd DO -[facility] Start: 10-31-2024 Pio Webb DO -[facility] Start: 10-21-2024 ambulatory Pio Webb Facility :[facility] Start: 10-21-2024 End: 11-28-2024 Evaluation and management of inpatient Dr. Dago Emery MD -Transitional Care Unit Start: 10-21-2024 End: 11-28-2024 Dr. Dago Emery MD -Transitional Care Unit Start: 10-20-2024 Non-patient / Non-visit Dr. Sofia giang MD -[facility] Work Phone: Start: 10-20-2024 Dr. Sofia Carvajal MD [facility] Work Phone: Start: 10-18-2024 ambulatory Saulo Bullock [facility] Start: 10-18-2024 End: 10-21-2024 Evaluation and management of inpatient Dr. Geo Rodriguez MD -[facility] Surgical 3 Work Phone: Start: 10-18-2024 End: 10-21-2024 Dr. Geo Rodriguez MD -[facility] 3 Work Phone: Start: 10-18-2024 Non-patient / Non-visit Dr. Joselin Valente MD [facility] Work Phone: Start: 10-18-2024 Dr. See Valente MD [facility] Work Phone: Start: 10-17-2024 Non-patient / Non-visit Dr. Joselin Valente MD [facility] Work Phone: Start: 10-17-2024 Dr. See Valente MD [facility] Work Phone: Start: 10-16-2024 Non-patient / Non-visit Dr. Foley [facility] Work Phone: Start: 10-16-2024 Dr. Saulo Bullock [facility] Work Phone: Start: 10-16-2024 ambulatory Saulo Reyes ility:[facility] Start: 10-11-[address] Cira Pate MD -[facility] Start: 10-11-2024 End: 10-11-2024 Patient encounter procedure Carolyn Peg [facility] Work Phone: Start: 10-11-2024 End: 10-11-2024 Carolyn Ruvalcaba [facility] Work Phone: Start: 10-11-2024 End: 10-11-[address] Dago Emery MD Work Phone: [facility] Start: 09-20-2024 End: 09-20-[address] Omero Armas MD -[facility] Work Phone: Start: 09-20-2024 End: 09-20-[address] Omero Armas MD [facility] Start: 09-20-2024 End: 09-20-[address] Omero Armas MD [facility] Start: 09-20-2024 End: 09-20-2024 Dr. Omero Armas MD -[facility] Work Phone: Start: 09-20-2024 End: 09-20-[address] Dago Emery MD Work Phone: [facility] Start: 08-08-2024 [facility] Start: 08-01-2024 End: 08-01-2024 Non-patient / Non-visit Dr. Omero Armas MD -[facility] Work Phone: Start: 08-01-2024 End: 08-01-[address] Dago Emery MD Work Phone: [facility] Work Phone: Start: 08-01-2024 End: 08-01-[address] Dago Emery MD -Pulmonary Services/Neurology Work Phone: Start: 07-31-2024 End: 08-01-[address] Dago Emery MD Work Phone: [facility] Work Phone: Start: 07-31-2024 End: 07-31-[address] Dago Emery MD -[facility] Start: 07-31-2024 End: 07-31-2024 ambulatory [facility] Facility:[facility] Start: 07-10-[address] Cira Pate MD -[facility] Start: 07-10-2024 End: 07-10-2024 Patient encounter procedure Carolyn Ruvalcaba NP-C -[facility] Work Phone: Start: 07-10-2024 End: 07-10-2024 ambulatory [facility] Facility:[facility] Start: 02-22-2024 End: 02-22-2024 ambulatory [facility] Start: 01-25-2023 End: 01-25-[address] Dago Emery Work Phone: [facility] Work Phone: Start: 01-25-2023 End: 01-25-[address] Dago Emery Work Phone: [facility]-Laboratory, Phy Office 3rd Flr Start: 11-04-[address] Dago hays Work Phone: [facility] Start: 11-04-2022 End: 11-04-[address] Dgao Emery Work Phone: [facility] Work Phone: Start: 09-25-2022 End: 10-14-2022 Evaluation and management of inpatient Dr. Dago Emery Work Phone: [facility]-Transitional Care Unit Start: 09-04-2022 End: 09-04-[address] Dago Emery Work Phone: [facility] Work Phone: Start: 09-04-2022 End: 09-04-[address] Dago Emery Work Phone: [facility] Start: 08-05-2022 End: 08-05-[address] Dago Emery Work Phone: [facility] Start: 08-05-[address] Dago hays Work Phone: [facility] Start: 07-20-2022 End: 07-20-[address] Dago Emery Work Phone: [facility] Work Phone: Start: 07-20-2022 End: 07-20-[address] Dago Emery Work Phone: [facility] Office [address] [place] [address] Start: 05-06-[address] Dago hays Work Phone: [facility] Start: 05-06-2022 End: 05-06-[address] Dago Emery Work Phone: [facility] Start: 04-12-2022 End: 04-12-2022 Emergency department patient visit Dr. Dago Emery Work Phone: [facility]-Emergency Department Start: 02-04-[address] Dago hays Work Phone: [facility] Start: 02-04-2022 End: 02-04-[address] Dago Emery Work Phone: [facility] Start: 01-19-2022 End: 01-19-[address] Dago Emery Work Phone: [facility] Work Phone: Start: 01-19-2022 End: 01-19-[address] Dago Emery Work Phone: [facility]-Laboratory, Phy Office 3rd Flr Start: 11-04-[address] Dago hays Work Phone: [facility] Start: 11-04-2021 End: 11-04-[address] Dago Emery Work Phone: [facility] Procedures Date Procedure [...] Reeves Start: 11-28-2024 Development of care plan [facility] Start: 11-28-2024 Patient discharge [facility] Start: 11-21-2024 [facility] Start: 11-17-2024 Developing a treatment plan [facility] Start: 11-14-2024 Speech therapy management [facility] Start: 11-03-2024 Elevation of affected extremity [facility] Start: 11-01-2024 Endoscopy upper small intestine w/biopsy [facility] Start: 11-01-2024 Patient discharge [facility] Start: 10-31-2024 Speech therapy assessment [facility] Start: 10-31-2024 Referral to gastroenterology service [facility] Start: 10-30-2024 Verification routine [facility] Start: 10-25-2024 [facility] Start: 10-22-2024 Developing a treatment plan [facility] Start: 10-21-2024 Chemotherapy care management [facility] Start: 10-21-2024 Wound care [facility] Start: 10-21-2024 Recommendation to continue with treatment [facility] Start: 10-21-2024 Admission procedure [facility] Start: 10-21-2024 Introduction of urinary catheter [facility] Start: 10-21-2024 Measuring intake and output [facility] Start: 10-21-2024 Patient referral to dietitian [facility] Start: 10-21-2024 Referral for physical therapy [facility] Start: 10-21-2024 Referral to occupational therapist [facility] Start: 10-21-2024 Referral to service [facility] Start: 10-21-2024 Vital signs measurements [facility] Start: 10-21-2024 End: 10-21-2024 [facility] Start: 10-21-2024 Patient discharge [facility] Start: 10-18-2024 Admission procedure [facility] Start: 10-18-2024 Care regimes management [facility] Start: 10-17-2024 [facility] Start: 10-16-2024 Application of intermittent pneumatic compression device [facility] Start: 10-16-2024 Following clinical pathway protocol [facility] Start: 10-16-2024 Provision of overbed trapeze [facility] Start: 10-16-2024 Ambulation therapy management [facility] Start: 10-16-2024 Assessment of risk of venous thromboembolism [facility] Start: 10-16-2024 Catheterization of vein [facility] Start: 10-16-2024 Exercises [facility] Start: 10-16-2024 Neurovascular assessment [facility] Start: 10-16-2024 Procedure discontinued [facility] Start: 10-16-2024 Recommendation to continue with treatment [facility] Start: 10-16-2024 Referral for physical therapy [facility] Start: 10-16-2024 Referral to occupational therapist [facility] Start: 10-16-2024 Referral to service [facility] Start: 10-16-2024 Vital signs measurements [facility] Start: 10-16-2024 End: 10-16-2024 [facility] Start: 10-16-2024 Application of device [facility] Start: 10-16-2024 Application of elastic bandage [facility] Start: 10-16-2024 Introduction of urinary catheter [facility] Start: 10-16-2024 Measuring intake and output [facility] Start: 10-16-2024 Patient education [facility] Start: 10-16-2024 Provision of activity privileges [facility] Start: 10-16-2024 Wound care [facility] Start: 10-16-2024 Admission procedure [facility] Start: 10-16-2024 Consultation [facility] Start: 10-11-2024 CBC W Auto Differential panel - Blood [facility] Start: 10-11-2024 [facility] Start: 07-31-2024 Electrocardiographic procedure [facility] Start: 10-14-2022 Patient discharge [facility] Start: 10-13-2022 Development of care plan [facility] Start: 10-09-2022 Referral to service [facility] Start: 10-09-2022 [facility] Start: 10-04-2022 [facility] Start: 10-04-2022 [facility] Start: 09-26-2022 Developing a treatment plan [facility] Start: 09-26-2022 Development of care plan [facility] Start: 09-26-2022 Application of device [facility] Start: 09-25-2022 Wound care [facility] Start: 09-25-2022 Admission procedure [facility] Start: 09-25-2022 Measuring intake and output [facility] Start: 09-25-2022 Patient referral to dietitian [facility] Start: 09-25-2022 Referral to occupational therapist [facility] Start: 09-25-2022 Referral to service [facility] Start: 09-25-2022 Vital signs measurements [facility] Start: 09-25-2022 End: 09-25-2022 [facility] Start: 07-21-2018 [facility] Anion gap in Serum or Plasma [facility] Anion gap in Serum or Plasma [facility] Anion gap in Serum or Plasma [facility] Anion gap in Serum or Plasma [facility] Anion gap in Serum or Plasma [facility] Basic metabolic 2008 panel with ionized calcium - Serum or Plasma [facility] BUN/Creatinine ratio [facility] BUN/Creatinine ratio [facility] BUN/Creatinine ratio [facility] BUN/Creatinine ratio [facility] BUN/Creatinine ratio [facility] Calcium [Mass/volume ] in Serum or Plasma [facility] Calcium [Mass/volume ] in Serum or Plasma [facility] Calcium [Mass/volume ] in Serum or Plasma [facility] Calcium [Mass/volume ] in Serum or Plasma [facility] Calcium [Mass/volume ] in Serum or Plasma [facility] Carbon dioxide, tota l [Moles/volume] in Central venous blood [facility] Carbon dioxide, tota l [Moles/volume] in Central venous blood [facility] Carbon dioxide, tota l [Moles/volume] in Central venous blood [facility] Carbon dioxide, tota l [Moles/volume] in Central venous blood [facility] Carbon dioxide, tota l [Moles/volume] in Central venous blood [facility] CBC W Auto Different ial panel - Blood [facility] Work Phone: CBC W Auto Different ial panel - Blood [facility] CBC W Auto Different ial panel - Blood [facility] CBC W Auto Different ial panel - Blood [facility] CBC W Auto Different ial panel - Blood [facility] CBC W Auto Different ial panel - Blood [facility] CBC W Auto Different ial panel - Blood [facility] Comprehensive metabo lic 1999 panel - Serum or Plasma [facility] Comprehensive metabo lic 2000 panel - Serum or Plasma [facility] Creatinine [Mass/vol ume] in Serum or Plasma [facility] Creatinine [Mass/vol ume] in Serum or Plasma [facility] Creatinine [Mass/vol ume] in Serum or Plasma [facility] Creatinine [Mass/vol ume] in Serum or Plasma [facility] Creatinine [Mass/vol ume] in Serum or Plasma [facility] Erythrocyte mean cor puscular volume determination [facility] Erythrocyte mean cor puscular volume determination [facility] Erythrocyte mean cor puscular volume determination [facility] Erythrocyte mean cor puscular volume determination [facility] Erythrocyte mean cor puscular volume determination [facility] Glucose [Mass/volume ] in Serum or Plasma [facility] Glucose [Mass/volume ] in Serum or Plasma [facility] Glucose [Mass/volume ] in Serum or Plasma [facility] Glucose [Mass/volume ] in Serum or Plasma [facility] Glucose [Mass/volume ] in Serum or Plasma [facility] Hematocrit [Volume F raction] of Blood [facility] Hematocrit [Volume F raction] of Blood [facility] Hematocrit [Volume F raction] of Blood [facility] Hematocrit [Volume F raction] of Blood [facility] Hematocrit [Volume F raction] of Blood [facility] Hemoglobin [Mass/vol ume] in Blood [facility] Hemoglobin [Mass/vol ume] in Blood [facility] Hemoglobin [Mass/vol ume] in Blood [facility] Hemoglobin [Mass/vol ume] in Blood [facility] Hemoglobin [Mass/vol ume] in Blood [facility] Leukocytes [#/volume] in Blood [facility] Leukocytes [#/volume] in Blood [facility] Leukocytes [#/volume] in Blood [facility] Leukocytes [#/volume] in Blood [facility] Leukocytes [#/volume] in Blood [facility] Mean corpuscular hem oglobin concentration determination [facility] Mean corpuscular hem oglobin concentration determination [facility] Mean corpuscular hem oglobin concentration determination [facility] Mean corpuscular hem oglobin concentration determination [facility] Mean corpuscular hem oglobin concentration determination [facility] Mean corpuscular hem oglobin determination [facility] Mean corpuscular hem oglobin determination [facility] Mean corpuscular hem oglobin determination [facility] Mean corpuscular hem oglobin determination [facility] Mean corpuscular hem oglobin determination [facility] Measurement of renal function [facility] Measurement of renal function [facility] Measurement of renal function [facility] Measurement of renal function [facility] Measurement of renal function [facility] Neutrophil count [facility] Neutrophil count [facility] Neutrophil count [facility] Neutrophil count [facility] Neutrophil count [facility] Neutrophil percent d ifferential count [facility] Neutrophil percent d ifferential count [facility] Neutrophil percent d ifferential count [facility] Neutrophil percent d ifferential count [facility] Neutrophil percent d ifferential count [facility] Patient Education ED [facility] Work Phone: Patient referral [facility] Work Phone: Platelets [#/volume] in Blood [facility] Platelets [#/volume] in Blood [facility] Platelets [#/volume] in Blood [facility] Platelets [#/volume] in Blood [facility] Platelets [#/volume] in Blood [facility] Potassium measurement [facility] Potassium measurement [facility] Potassium measurement [facility] Potassium measurement [facility] Potassium measurement [facility] Red blood cell count [facility] Red blood cell count [facility] Red blood cell count [facility] Red blood cell count [facility] Red blood cell count [facility] Red cell distributio n width determination [facility] Red cell distributio n width determination [facility] Red cell distributio n width determination [facility] Red cell distributio n width determination [facility] Red cell distributio n width determination [facility] Serum chloride measurement [facility] Serum chloride measurement [facility] Serum chloride measurement [facility] Serum chloride measurement [facility] Serum chloride measurement [facility] Sodium measurement [facility] Sodium measurement [facility] Sodium measurement [facility] Sodium measurement [facility] Sodium measurement [facility] Urea nitrogen [Mass/ volume] in Serum or Plasma [facility] Urea nitrogen [Mass/ volume] in Serum or Plasma [facility] Urea nitrogen [Mass/ volume] in Serum or Plasma [facility] Urea nitrogen [Mass/ volume] in Serum or Plasma [facility] Urea nitrogen [Mass/ volume] in Serum or Plasma [facility] Immunizations Immunization Date Immunization Notes Care Provider Fa cility 11-23-2020 Covid (Moderna) Dr. Dago Emery Work Phone: [facility] 10-26-2020 Covid (10X10 Room) Dr. Dago Emery Work Phone: [facility] 01-16-2020 influenza, injectabl e, quadrivalent, preservative free Dr. Dago Emery Work Phone: [facility] 11-23-[address] Dago Emery Work Phone: [facility] 09-07-[address] Dago Emery Work Phone: [facility] 01-12-2019 influenza, injectabl e, quadrivalent, preservative free Dr. Dago Emery Work Phone: [facility] 12-20-2008 pneumococcal vaccine , unspecified formulation Dr. Dago Emery Work Phone: [facility] 07-21-2008 pneumococcal polysaccharide vaccine, [address] Dago Emery Work Phone: [facility] Payers Date Payer Category Payer Self-pay [id number] 2018 Medicare [id number] 2018 Private Health Insurance [id number] [id number] Unknown [facility] PACKAGE PLAN [id number] Unknown [id number] 2.16.840.1.320050.3.579.2.462 Unknown [id number] 2.16.840.1.851056.3.579.2.462 Unknown [id number] 2.16.840.1.298036.3.579.2.462 Unknown [id number] 2.16.840.1.058419.3.579.2.462 Unknown [id number] 2.16.840.1.939425.3.579.2.462 Unknown [id number] 2.16.840.1.296370.3.579.2.462 Unknown [id number] 2.16.840.1.676189.3.579.2.462 Unknown [id number] 2.16.840.1.492558.3.579.2.462 Unknown [id number] 2.16.840.1.587707.3.579.2.462 Unknown [id number] 2.16.840.1.058738.3.579.2.462 Unknown [id number] 2.16.840.1.362227.3.579.2.462 Unknown [id number] 2.16.840.1.157396.3.579.2.462 Unknown [id number] 2.16.840.1.976191.3.579.2.462 Unknown [id number] 2.16.840.1.220917.3.579.2.462 Unknown [id number] 2.16.840.1.945095.3.579.2.462 Unknown [id number] 2.16.840.1.070608.3.579.2.462 Unknown [id number] 2.16.840.1.104654.3.579.2.462 Unknown [id number] 2.16.840.1.054660.3.579.2.462 Unknown [id number] 2.16.840.1.992046.3.579.2.462 Unknown [id number] 2.16.840.1.890112.3.579.2.462 Unknown [id number] 2.16.840.1.582393.3.579.2.462 Unknown [id number] 2.16.840.1.339228.3.579.2.462 Unknown [id number] 2.16.840.1.400664.3.579.2.462 Unknown [id number] 2.16.840.1.469138.3.579.2.462 Unknown [id number] 2.16.840.1.184027.3.579.2.462 Unknown [id number] 2.16.840.1.692632.3.579.2.462 Unknown [id number] 2.16840.1.464359.3.579.2.462 Unknown [id number] 2.16.840.1.376937.3.579.2.462 Unknown [id number] 2.16840.1.474465.3.579.2.462 Unknown [id number] 2.16.840.1.446595.3.579.2.462 Unknown [id number] 2.16840.1.986280.3.579.2.462 Unknown [id number] 2.16840.1.929905.3.579.2.462 Unknown [id number] 2.16840.1.173478.3.579.2.462 Unknown [id number] 2.16840.1.601573.3.579.2.462 Unknown [id number] 2.16840.1.413145.3.579.2.462 Social History Date Type Detail Facility Start: 07-24-2020 End: 09-25-2022 Tobacco smoking status MTIS Unknown if ever smoked [facility] Start: 04-16-2014 None [facility] Start: 12-02-2018 Non-smoker [facility] Start: 1945 Sex Assigned At Female [facility] Start: 07-31-2024 End: 01-05-2025 Tobacco smoking status NHIS Never smoked tobacco (finding) [facility] Not [facility] Medical Equipment Procedure Code Equipment Code Equipment Origin al Text Equipment Identifier Dates ([id number]) ()[id number] 7)[id number])[id number] FDA Start: 09-23-2022 ([id number]) ()[id number] 944(1 7)[id number])[id number] FDA Start: 09-23-2022 ([id number]) ()[id number] 491(1 7)[id number])[id number] FDA Start: 09-23-2022 ([id number]) ()[id number] 150(1 7)[id number](10)[id number] FDA Start: 09-23-2022 (683200590) [id number] 054(1 7)[id number] FDA Start: 10-16-2024 ()[id number] 691(1 7)[id number](10)[id number] FDA Start: 10-16-2024 ([id number]) ()[id number] 793(1 7)[id number])[id number] FDA Start: 10-16-2024 (266159188) ()[id number] 061(1 7)[id number])[id number] FDA Start: 10-16-2024 (422557881) ()[id number] 702(1 7)[id number])[id number] FDA Start: 10-16-2024 (512796890) ()[id number] 702(1 7)[id number])[id number] FDA Start: 10-16-2024 (115691987) ()[id number] 664(1 7)627609(10)[id number] FDA Start: 10-16-2024 ([id number](8 0)[id number] FDA Start: 10-16-2024 Goals Date Patient Goal Desired Activity /State Functional Status Date Assessment Result Facility 11-28-2024 Functional status Chair [facility] Work Phone: 11-27-2024 Functional status Standard Walker [facility] Work Phone: 11-01-2024 Functional status Bedrest [facility] Work Phone: 10-31-2024 Functional status Standard Walker [facility] Work Phone: 10-21-2024 Functional status Stand and pivot [facility] Work Phone: 10-14-2022 Functional status Activity Ability Indepe ndent [facility] Work Phone: 10-13-2022 Functional status Ambulates;[facility]: 10-12-2022 Functional status Tolerates Activity Well [facility] Work Phone: Mental Status Date Assessment Result Facility 11-28-2024 Cognitive function Voice/Name [facility] Work Phone: 11-18-2024 [facility]: 11-01-2024 Cognitive function Voice/Name [facility] Work Phone: 10-31-2024 Cognitive function Appropriate;Cooperativ e [facility] Work Phone: 10-21-2024 Cognitive function Voice/Name [facility] Work Phone: 10-14-2022 Cognitive function Voice/Name [facility] Work Phone: 10-07-2022 Cognitive function Appropriate [facility] Work Phone: Clinical Notes 07-10-2024 to 11-24-2024 Note Date & Type Note Facility 11-24-2024 Discharge summary Note Date/Time November 24, 2024 2:01pm [facility] Medical Records Department [address] [place] [address] Discharge Summary 11/24/24 1351 MR#: [id number] Acct: [id number] Name: BERNICE HASASN Rep #:[id number] : 1945 79 From: Dago Emery MD PCP: Dr. Dago Emery MD Status:ADM I N Location: [place] [address] Providers Date of Admission: 10/21/24 Primary Care [...] BID for 1 month. Discharge 11/28/2024 to [facility], [facility], part B therapies. [...] % (Auto) 64.5, Lymph % (Auto) 27.0, [place] % (Auto) 5.3, Eos % (Auto) 2.2, [...] instructions: No Additional Instructions: Discharge 11/28/2024 to [facility], intermediate, private pay, part B [...] Additional Instructions / Restrictions: Discharge 11/28/2024 to [facility], intermediate, private pay, part B [...] applicable): CC: Dr. Dago Emery MD~ Signed [facility] Work Phone: 1(532) 671-640109-05-2025 Discharge summary Author Dago Rupert [facility] Note Date/Time November 24, 2024 2:01pm [facility] Medical Records Department [address] [place] [address] Transfer to [facility] MR#: [id number] Acct: [id number] Name: BERNICE HASSAN Rep #:[id number] : 1945 79 From: Dago Emery MD PCP: Dr. Dago Emery MD Status:ADM I N Certification of patient admission REQUIRED AT TIME OF ADMISSION. I CERTIFY THAT POST-HOSPITAL ECF SERVICES ARE REQUIRED TO BE GIVEN ON AN IN-PATIENT BASIS BECAUSE OF THE ABOVE NAMED PATIENT'S NEED FOR FCI CARE ON A CONTINUING BASIS FOR THE CONDITION(S) FOR WHICH HE/SHE WAS RECEIVING IN-PATIENT HOSPITAL SERVICES PRIOR TO HIS/HER TRANSFER TO [facility]. 11/24/24 1401<Electronically signed by Dago Emery MD> [...] Additional Instructions / Restrictions: Discharge 11/28/2024 to [facility], [facility], private [facility], part B therapies. [...] applicable): CC: Dr. Dago Emery MD ~ [facility] Work Phone: 1(461) 194-156509-05-2025 Discharge summary [facility] Medical Records Department [address] [place] [address] Discharge Summary 11/24/24 1351 MR#: [id number] Acct: [id number] Name: BERNICE HASSAN Rep #:[id number] : 1945 79 From: Dago Emery MD PCP: Dr. Dago Emery MD Status:ADM I N Location: [place] [address] Providers Date of Admission: 10/21/24 Primary Care Physician: Dr. Dago Emery MD Consultations 10/31/24 07:27 Consult: Gastroenterology Routine Consulting Provider: [facility] Reason for Consult: Anemia, +Hemoccult. EMERGENT [...] BID for 1 month. Discharge 11/28/2024 to [facility], private [facility], part B therapies. [...] % (Auto) 64.5, Lymph % (Auto) 27.0, [place] % (Auto) 5.3, Eos % (Auto) 2.2, [...] instructions: No Additional Instructions: Discharge 11/28/2024 to [facility], intermediate, private pay, part B [...] Additional Instructions / Restrictions: Discharge 11/28/2024 to [facility], intermediate, private pay, part B [...] applicable): CC: Dr. Dago Emery MD~ Signed [facility]09-05-2025 Discharge summary [facility] Medical Records Department [address] [place] [address] [facility] MR#: [id number] Acct: [id number] Name: BERNICE HASSAN Rep #:[id number] : 1945 79 From: Dago Emery MD PCP: Dr. Dago Emery MD Status:ADM I N Certification of patient admission REQUIRED AT TIME OF ADMISSION. I CERTIFY THAT POST-HOSPITAL F SERVICES ARE REQUIRED TO BE GIVEN ON AN IN-PATIENT BASIS BECAUSE OF THE ABOVE NAMED PATIENT'S NEED FOR FCI CARE ON A CONTINUING BASIS FOR THE CONDITION(S) FOR WHICH HE/SHE WAS RECEIVING IN-PATIENT HOSPITAL SERVICES PRIOR TO HIS/HER TRANSFER TO [facility]. 11/24/24 1401 Diet Diet Order/Speech Therapy: INPATIENT [...] Additional Instructions / Restrictions: Discharge 11/28/2024 to [facility], [facility], private [facility], part B therapies. [...] applicable): CC: Dr. Dago Emery MD ~ [facility]09-05-2025 [facility]08-25-2025 Progress note Author Dago Emery [facility] Note Date/Time November 13, 2024 7: 55pm [facility] Medical Records Department [address] [place] [address] Progress Note - [facility] 11/13/241948 MR#: [id number] Acct: [id number] Name: BERNICE HASSAN Rep #:[id number] : 1945 79 From: Dago Emery MD PCP: Dr. Dago Emery MD Status:ADM I N Location: [place] [address] Subjective Subjective Patient seen, examined for regulatory visit. She has no new complaints. She issitting in recliner with her left leg elevated. She appears bored. She is resigned to going to [facility] once insurances cuts her. 11/01/2024 Friend [...] Cosigner Signature (if applicable): CC: ~ Signed [facility] Work Phone: 1(404) 511-620808-25-2025 Progress note [facility] Medical Records Department [address] [place] [address] Progress Note - [facility] 11/13/241948 MR#: [id number] Acct: [id number] Name: BERNICE HASSAN Rep #:[id number] : 1945 79 From: Dago Emery MD PCP: Dr. Dago Emery MD Status:ADM I N Location: [place] [address] Subjective Subjective Patient seen, examined for regulatory visit. She has no new complaints. She issitting in recliner with her left leg elevated. She appears bored. She is resigned to going to [facility] once insurances cuts her. 11/01/2024 Dr. [...] Cosigner Signature (if applicable): CC: ~ Signed [facility]08-15-2025 Radiology Diagnostic study note [facility] Imaging Services [address] [place] [address] Ankle min 3 Views MR#: [id number] Acct: [id number] Name: HASSANBERNICE K Rep #: [id number] : 1945 F 79 From: Lynda Batres MD PCP: Dr. Dago Emery MD Status: ADM I N Study:Ankle min 3 Views Date of Exam: Exam# [id number] Ordering Dr: Grayson Rodriguez MD PROCEDURE: ANKLE [...] fracture deformity of distal fibula. Reading Location: [id number] CC: Dr. Geo Rodriguez MD; Dr. Dago Emery MD ~ Turn Down Worker: Signed [facility]08-13-2025 Consult note [facility] Medical Records Department [address] [place] [address] Anesthesia Postop Eval II 11/01/24 1633 MR#: [id number] Acct: [id number] Name: BERNICE HASSAN Rep #:[id number] : 1945 79 From: Dinorah Headley FLUX PLANT OPERATOR PCP: Dr. Dago Emery MD Status:REG S DC Y Race: C Location: [address] Anesthesia Postop Eval I Sum Postop Eval Completion status Anesthesia document: Postop Eval 1 completed: Yes Anesthesia Postop Eval I Summary Anesthesia Postop Eval I Summary: Anesthesia Postop Eval I: Assessment Summary Airway patent Yes 11/01/24 16:13 FLUX PLANT OPERATOR.[email or web address] Spontaneous unlabored Yes 11/01/24 16:13 FLUX PLANT OPERATOR.JBLOU respirations Mental status Awake,Calm 11/01/24 16:13 FLUX PLANT OPERATOR.JBLOU nausea No 11/01/24 16:13 FLUX PLANT OPERATOR.JBLOU Vomiting No 11/01/24 16:13 FLUX PLANT OPERATOR.JBLOU Anesthesia Postop Eval I: Fluid Summary Crystalloid volume administer 200 11/01/24 16:13 FLUX PLANT OPERATOR.JBLOU (ml) Colloids volume administered ( ml) Blood Product volume administered (ml) Total IV fluid infused 200 11/01/24 16:13 FLUX PLANT OPERATOR.JBLOU Anesthesia Postop Eval I: Summary Notes Anesthesia Complication No 11/01/24 16:13 FLUX PLANT OPERATOR.JBLOU Anesthesia Complication Comment: Post-operative progress note Anesthesia: Postop Eval II Evaluation Mental status: Awake Pain Level: 0 nausea: No Vomiting: No 11/01/24 1633 a FLUX PLANT OPERATOR> Date _ Dinorah Headley FLUX PLANT OPERATOR Cosigner Signature: Date CC: ~ Signed [facility]08-13-2025 Procedure note [facility] Medical Records Department [address] [place] [address] [place] [address] EGD Report MR#: [id number] Acct: [id number] Name: BERNICE HASSAN Rep #:[id number] : 1945 79 From: Pio Webb DO [...] present medications. Procedure Code(s): --- Professional --- 39283, Small intestinal endoscopy, enteroscopy beyond second portion of duodenum, not including ileum; with biopsy, single or multiple CPT copyright 2021 [employer]. All rights reserved. The codes documented in this report are preliminary and upon pre coder review may be revised to meet current compliance requirements. Pio Webb DO 11/01/2024 4:13:52 PM This report has been signed electronically. Number of Addenda: 0 Note Initiated On: 11/01/2024 3:55 PM 11/01/24 1614 Date _ Pio Webb DO Cosigner Signature: Date (if indicated) CC: Dr. Dago Emery MD; Pio Webb DO ~ Date Dictated: 11/01/24 8649 Date Transcribed: Turn Down Worker: GOKUL Signed [facility]08-13-2025 Procedure note [facility] Medical Records Department [address] [place] [address] Provation Physician Letter MR#: [id number] Acct: [id number] Name: BERNICE HASSAN Rep #:[id number] : 1945 79 From: Pio Webb DO PCP: Dr. Dago Emery MD Status:REG S DC 11/01/2024 Dago Emery MD [address] [place] [address] Re : Upper GI endoscopy procedure for [...] Pio Webb DO ~ Date Dictated: 11/01/24 9712 Date Transcribed: Turn Down Worker: RF Signed [facility]08-13-2025 Consult note [facility] Medical Records Department [address] [place] [address] Anesthesia Postop Eval I 11/01/24 1613 MR#: [id number] Acct: [id number] Name: BERNICE HASSAN Rep #:[id number] : 1945 79 From: Franklyn CHAMBERS PCP: Dr. Dago Emery MD Status:REG S DC Y Race: C Location: [address] Anesthesia: Postop Eval I Current Vital [...] Postop Eval 1 completed: Yes 11/01/24 161 FLUX PLANT OPERATOR> Date _ Franklyn Lopez FLUX PLANT OPERATOR Cosigner Signature: Date CC: ~ Signed [facility]08-13-2025 Consult note [facility] Medical Records Department [address] [place] [address] Pre-Anesthesia Evaluation 11/01/24 1539 MR#: [id number] Acct: [id number] Name: BERNICE HASSAN Rep #:[id number] : 1945 79 From: Avery Crocker PCP: Dr. 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: Anesthesia History - router machine operator Hx Hospitalization Yes 11/01/24 15:07 Any Problems [...] take am of surgery PONV PONV - router machine operator: PONV - router machine operator Female Yes 11/01/24 15:07 HX of Motion [...] 11/01/24 15:07 Respiratory Assessment Respiratory Assessment - router machine operator: Respiratory Tract Infection Hx - router machine operator Hx Respiratory Tract Infection No 11/01/24 15:07 STOP Sleep Apnea STOP Sleep Apnea - router machine operator: STOP Sleep Apnea - router machine operator Hx Hypertension Yes 11/01/24 15:07 Hx Sleep [...] Tobacco Use History Tobacco Use History - router machine operator: Tobacco Use History - router machine operator Tobacco Use Smoking Status Never smoker 11/01/24 15:07 Hx Tobacco Use No 11/01/24 15:07 Years Smoking Packs Smoked per Day Smoking Cessation Date was within the last 15 years Hx Smoking Cessation Date Hx Smoking Cessation Counseling Hematologic Medial History Hematologic Hx - router machine operator: Hematologic 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 Hx of Blood Transfusion No 11/01/24 15:07 [...] confused, unrespo /Reproduction History /Reproductive History - router machine operator: /Reproductive Hx- router machine operator Hx Now Gestational Age (in weeks): EDC: [...] surgery Social History household members: none [facility] Smoking Status: Never smoker second hand exposure: No alcohol intake: never substance use type: does not use justice/roman catholic: Caodaism seatbelt use: always do you feel safe at home: Yes Review of Systems (Anesthesia) ROS Narrative System reviewed and no additional complaints, except as documented. 11/01/24 1603 MD> Date _ Avery Rod MD Cosigner Signature: Date CC: ~ Signed [facility]08-13-2025 History and physical note [facility] Medical Records Department [address] [place] [address] History & Physical Exam 11/01/24 1523 MR#: [id number] Acct: [id number] Name: BERNICE HASSAN Rep #:[id number] : 1945 79 From: Pio Friend DO PCP: Dr. Dago Emery MD Status:REG S DC Location: [place] [address] HPI - General General Date of Admission: [...] part of recently but thelast 5 years. [facility] Medical History Cardiology follow-up encounter Wears [...] never substance use type: does not use justice/roman catholic: Caodaism seatbelt use: always do you feel safe [...] Dago Emery MD; Pio Webb DO~ Signed [facility]08-13-2025 [facility] Consult note Author Pio Webb [facility] Note Date/Time October 31, 2024 9: 58am [facility] Medical Records Department [address] [place] [address] Consultation - GI 10/31/24 0951 MR#: [id number] Acct: [id number] Name: BERNICE HASSAN Rep #:[id number] : 1945 79 From: Pio Webb DO PCP: Dr. Dago Emery MD Status:ADM I N Location: [place] [address] HPI Consult Data Date of Consult: 10/31/24 [...] part of recently but thelast 5 years. [facility] Medical History Cardiology follow-up encounter Wears [...] surgery Social History household members: none [facility] Smoking Status: Never smoker second hand exposure: No alcohol intake: never substance use type: does not use justice/roman catholic: Caodaism seatbelt use: always do you feel safe [...] ASA 3. Charges/Coding Visit Charges Inpatient E&M: 82972 SNF Init L2 10/31/24 0958 <Electronically signed by Pio Webb DO> Cosigner Signature (if applicable): CC: Dr. Dago Emery MD~ Signed [facility] Work Phone: 1(178) 411-725308-12-2025 Radiology Diagnostic study note [facility] Imaging Services [address] [place] [address] Ankle min 3 Views MR#: [id number] Acct: [id number] Name: BERNICE HASSAN Rep #: [id number] : 1945 F 79 From: Kaushik Bacon MD PCP: Dr. Dago Emery MD Status: ADM I N Study:Ankle min 3 Views Date of Exam: Exam# [id number] Ordering Dr: Dago Emery MD PROCEDURE: ANKLE [...] to prior. Likely subacute injury Reading Location: [facility] CC: Dr. Dago Emery MD ~ Turn Down Worker: Signed [facility]08-12-2025 Radiology Diagnostic study note [facility] Imaging Services [address] [place] [address] Knee 1 or 2 Views MR#: [id number] Acct: [id number] Name: BERNICE HASSAN Rep #: [id number] : 1945 F 79 From: Antonio Caballero MD PCP: Dr. 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 There isgood alignment. 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 There is good alignment. Reading Location: [place] [address] CC: Dr. Dago Emery MD ~ Turn Down Worker: Signed [facility]08-12-2025 Consult note [facility] Medical Records Department [address] [place] [address] Consultation - GI 10/31/24 0951 MR#: [id number] Acct: [id number] Name: BERNICE HASSAN Rep #:[id number] : 1945 79 From: Pioleoncio Webb DO PCP: Dr. Dago Emery MD Status:ADM I N Location: [facility] TC5 HPI Consult Data Date of [...] part of recently but thelast 5 years. [facility] Medical History Cardiology follow-up encounter Wears [...] surgery Social History household members: none housing: [facility] Smoking Status: Never smoker second hand exposure: No alcohol intake: never substance use type: does not use justice/roman catholic: Caodaism seatbelt use: always do you feel safe [...] ASA 3. Charges/Coding Visit Charges Inpatient E&M: 89268 SNF Init L2 10/31/24 0958 Cosigner Signature (if applicable): CC: Dr. Dago Emery MD~ Signed [facility]08-05-2025 History and physical note Author Dago Rupert [facility] Note Date/Time October 24, 2024 5:2 8pm [facility] Medical Records Department [address] [place] [address] History & Physical Exam 10/21/24 1747 MR#: [id number] Acct: [id number] Name: BERNICE HASSAN Rep #:[id number] : 1945 79 From: Dago Emery MD PCP: Dr. Dago Emery MD Status:ADM I N Location: [place] [address] HPI - General General Date of Admission: 10/21/24 Date of Service: 10/23/24 Chief Complaint: Here for rehabilitation. HPI Narrative BERNICE HASSAN, is a 79 Female who presents with followin10/16/2024 Admit [facility]. 10/16/2024 Dr. Rodriguez performed left total [...] rehabilitation, strengthening, prior to discharge home alone. [facility] Medical History (Updated 10/21/24 @ 17:54 [...] never substance use type: does not use justice/roman catholic: Caodaism seatbelt use: always do you feel safe [...] cc: Dr. Dago Emery MD ~* Signed [facility] Work Phone: 1([phone]) 759-219308-05-2025 History and physical note [facility] Medical Records Department [address] [place] [address] History & Physical Exam 10/21/24 1747 MR#: [id number] Acct: [id number] Name: BERNICE HASSAN Rep #:[id number] : 1945 79 From: Dago Emery MD PCP: Dr. Dago Emery MD Status:ADM I N Location: [facility] TCU15-1 HPI - General General Date of Admission: 10/21/24 Date of Service: 10/23/24 Chief Complaint: Here for rehabilitation. HPI Narrative BERNICE HASSAN, is a 79 Female who presents with followin10/16/2024 Admit [facility]. 10/16/2024 Dr. Rodriguez performed left total [...] rehabilitation, strengthening, prior to discharge home alone. [facility] Medical History (Updated 10/21/24 @ 17:54 [...] surgery Social History household members: none housing: [facility] Smoking Status: Never smoker second hand exposure: No alcohol intake: never substance use type: does not use justice/roman catholic: Caodaism seatbelt use: always do you feel safe [...] cc: Dr. Dago Emery MD ~* Signed [facility]08-04-2025 Progress note Author Freddie Cameron [facility] Note Date/Time October 23, 2024 3:1 4pm [facility] Medical Records Department [address] [place] [address] Progress Note - Pharmacy 10/23/24 1439 MR#: [id number] Acct: [id number] Name: BERNICE HASSAN Rep #:[id number] : 1945 79 From: Freddie Cameron PCP: Dr. Dago Emery MD Status:ADM I N Location: [place] 695925- Documented by User: Freddie Cameron 10/23/24 14:58 [...] 50 Mg Tablet PO 50 mg DAILY@0800 [facility] Administration Protocol Cholecalciferol 25 mcg 10/22/24 10:00 [...] 325 Mg Tablet PO Not Given 1200,1700 [facility] Folic Acid 1 mg 10/22/24 08:00 10/23/24 09:34 Folic Acid 1 Mg Tablet PO 1 mg BREAKFAST [facility] Administration Hydroxyurea 1,000 mg 10/23/24 10:00 10/23/24 09:35 Hydroxyurea 500 Mg Capsule PO 1,000 mg MoTuThFrSa@1000 [facility] Administration Levothyroxine Sodium 50 mcg 10/22/24 06:00 10/23/24 05:44 Levothyroxine 50 Mcg Tablet PO 50 mcg DAILY@0600 [facility] Administration Losartan Potassium 100 mg 10/22/24 10:00 10/23/24 09:34 Losartan Potassium 100 Mg Tablet PO 100 mg DAILY [facility] Administration Protocol Magnesium Citrate 300 ml 10/21/24 [...] Sodium 1 Tablet PO 2 tablet BID [facility] Administration Tuberculin PPD 0.1 ml 10/29/24 10:00 [...] Comments to Recommendations by Pharmacy Agree 10/23/24 1452 <Electronically signed by Freddie Cameron> Freddie Cameron Cosigner Signature (if applicable): 10/23/24 1514 <Electronically signed by Daog Emery MD> CC: ~ Signed [facility] Work Phone: 1(884) 739-540908-04-2025 Progress note [facility] Medical Records Department [address] [place] [address] Progress Note - Pharmacy 10/23/24 1439 MR#: [id number] Acct: [id number] Name: BERNICE HASSAN Rep #:[id number] : 1945 79 From: Freddie Cameron PCP: Dr. Dago Emery MD Status:ADM I N Location: [place] [address] Documented by User: Freddie Cameron 10/23/24 14:58 [...] 500 Mg Tablet PO 500 mg Q8 [facility] Administration Amlodipine Besylate 5 mg 10/22/24 10:00 10/23/24 09:35 Amlodipine 5 Mg Tablet PO 5 mg DAILY [facility] Administration Protocol Aspirin 81 mg 10/21/24 17:00 10/23/24 09:34 Aspirin 81 Mg Tab.Chew PO 11/18/24 17:01 81 mg BIDCM [facility] Administration Atenolol 50 mg 10/22/24 08:00 10/23/24 09:34 Atenolol 50 Mg Tablet PO 50 mg DAILY@0800 [facility] Administration Protocol Cholecalciferol 25 mcg 10/22/24 10:00 10/23/24 09:36 Cholecalciferol (Vit D3) 25 Mcg Tablet (1,000 Units) PO 25 mcg DAILY [facility] Administration Doxycycline Monohydrate 100 mg 10/21/24 22:00 10/23/24 09:35 Doxycycline 100 Mg Capsule PO 10/30/24 22:01 100 mg BID [facility] Administration Famotidine 20 mg 10/22/24 10:00 10/23/24 09:35 Famotidine 20 Mg Tablet PO 20 mg DAILY [facility] Administration Ferrous Sulfate 325 mg 10/21/24 17:00 10/22/24 16:36 Ferrous Sulfate 325 Mg Tablet PO Not Given 1200,1700 [facility] Folic Acid 1 mg 10/22/24 08:00 10/23/24 09:34 Folic Acid 1 Mg Tablet PO 1 mg BREAKFAST [facility] Administration Hydroxyurea 1,000 mg 10/23/24 10:00 10/23/24 09:35 Hydroxyurea 500 Mg Capsule PO 1,000 mg MoTuThFrSa@1000 [facility] Administration Levothyroxine Sodium 50 mcg 10/22/24 06:00 [...] 1458 Freddie Germain Signature (if applicable): 10/23/24 7693 CC: ~ Signed [facility]08-02-2025 [facility] Discharge summary Author Nela Rodrigo [facility] Note Date/Time October 21, 2024 11: 05am [facility] Medical Records Department [address] [facility] [place] [address] Discharge Summary 10/21/24 1100 MR#: [id number] Acct: [id number] Name: BERNICE HASSAN Rep #:[id number] : 1945 79 From: Nela CORNELIUS PCP: Dr. Dago Emery MD Status:ADM I N Location: [place] [address] Providers Date of Admission: 10/18/24 Primary Care Physician: Dr. Dago Emery MD Consultations 10/16/24 14:53 Consult: Hospitalist Routine Consulting Provider: [facility] Reason for Consult: post op [...] feel patient is ready for discharge to half-way facility. Patient states that she feels much [...] % (Auto) 54.7, Lymph % (Auto) 27.2, [place] % (Auto) 15.2 H, Eos % (Auto) [...] Profile (BMP) (Routine) Timeframe: 1 Week Facility: [facility] - Location: Laboratory Ordered By: Nela Wallace CBC W/Diff, Automated (Routine) Timeframe: 1 Week Facility: [facility] - Location: Laboratory Ordered By: Nela Wallace Referrals / Follow Up: Dago Emery Chi, MD [Primary Care Provider] - Disposition Disposition (needs filled in before D/C Order can be placed): Inpatient Rehab Unit/Facility 10/21/24 1105 <Electronically signed by Nela CORNELIUS> Cosigner Signature (if applicable): CC: ADRYAN Holland; Dr. Dago Emery MD~ Signed [facility] Work Phone: 1(355) [phone] Discharge summary Author Nela Wallace [facility] Note Date/Time October 21, 2024 10: 59am [facility] Medical Records Department [address] [place] [address] Transfer to [facility] MR#: [id number] Acct: [id number] Name: BERNICE HASSAN Rep #:[id number] : 1945 79 From: Nela CORNELIUS PCP: Dr. Dago Emery MD Status:ADM I N Certification of patient admission REQUIRED AT TIME OF ADMISSION. I CERTIFY THAT POST-HOSPITAL ECF SERVICES ARE REQUIRED TO BE GIVEN ON AN IN-PATIENT BASIS BECAUSE OF THE ABOVE NAMED PATIENT'S NEED FOR FCI CARE ON A CONTINUING BASIS FOR THE [...] feel patient is ready for discharge to half-way facility. Patient states that she feels much [...] Profile (BMP) (Routine) Timeframe: 1 Week Facility: [facility] - Location: Laboratory Ordered By: Nela Wallace CBC W/Diff, Automated (Routine) Timeframe: 1 Week Facility: [facility] - Location: Laboratory Ordered By: Nela Wallace Referrals / Follow Up: Dago Emery Chi, MD [Primary Care Provider] - Disposition Disposition (needs filled in before D/C Order can be placed): Inpatient Rehab Unit/Facility 10/21/24 1059 <Electronically signed by Nela CORNELIUS> Cosigner Signature (if applicable): CC: Dr. Juliane Villa MD; Dr. Sofia Carvajal MD; Dr. Dago Emery MD ~ [facility] Work Phone: 1(171) 941-431408-02-2025 Progress note Author Nela [facility] Note Date/Time October 21, 2024 10: 33am [facility] Medical Records Department [address] [place] [address] Progress Note - Orthopedic 10/21/24 1022 MR#: [id number] Acct: [id number] Name: BERNICE HASSAN Rep #:[id number] : 1945 79 From: Nela CORNELIUS PCP: Dr. Dago Emery MD Status:ADM I N Location: MS3 KR703-6 Subjective Subjective Patient is sitting comfortably in [...] % (Auto) 54.7, Lymph % (Auto) 27.2, [place] % (Auto) 15.2 H, Eos % (Auto) [...] feel patient is ready for discharge to half-way facility. Patient states that she feels much [...] Cosigner Signature (if applicable): CC: ~ Signed [facility] Work Phone: 1(376) 536-655408-02-2025 Discharge summary [facility] Medical Records Department [address] [place] [address] [place] [address] Discharge Summary 10/21/24 1100 MR#: [id number] Acct: [id number] Name: BERNICE HASSAN Rep #:[id number] : 1945 79 From: Nela CORNELIUS PCP: Dr. Dago Emery MD Status:ADM I N Location: [facility] NZ972-4 Providers Date of Admission: 10/18/24 Primary Care Physician: Dr. Dago Emery MD Consultations 10/16/24 14:53 Consult: Hospitalist Routine Consulting Provider: [facility] Reason for Consult: post op [...] feel patient is ready for discharge to half-way facility.Patient states that she feels much more [...] % (Auto) 54.7, Lymph % (Auto) 27.2, [place] % (Auto) 15.2 H, Eos % (Auto) [...] Profile (BMP) (Routine) Timeframe: 1 Week Facility: [facility] - Location: Laboratory Ordered By: Nela Wallace CBC W/Diff, Automated (Routine) Timeframe: 1 Week Facility: [facility] - Location: Laboratory Ordered By: Nela Wallace Referrals / Follow Up: Dago Emery Chi, MD [Primary Care Provider] - Disposition Disposition (needs filled in before D/C Order can be placed): Inpatient Rehab Unit/Facility 10/21/24 1105 Cosigner Signature (if applicable): CC: ADRYAN Holland; Dr. Dago Emery MD~ Signed [facility]08-02-2025 [facility] Discharge summary [facility] Medical Records Department [address] [place] [address] [facility] MR#: [id number] Acct: [id number] Name: BERNICE HASSAN Rep #:[id number] : 1945 79 From: Nela CORNELIUS PCP: Dr. Dago Emery MD Status:ADM I N Certification of patient admission REQUIRED AT TIME OF ADMISSION. I CERTIFY THAT POST-HOSPITAL ECF SERVICES ARE REQUIRED TO BE GIVEN ON AN IN-PATIENT BASIS BECAUSE OF THE ABOVE NAMED PATIENT'S NEED FOR FCI CARE ON A CONTINUING BASIS FOR THE CONDITION(S) FOR WHICH HE/SHE WAS RECEIVING IN-PATIENT HOSPITAL SERVICES PRIOR TO HIS/HER TRANSFER TO [facility]. 10/21/24 1059 Diet Diet Order/Speech Therapy: INPATIENT [...] feel patient is ready for discharge to half-way facility.Patient states that she feels much more [...] Profile (BMP) (Routine) Timeframe: 1 Week Facility: [facility] - Location: Laboratory Ordered By: Nela Wallace CBC W/Diff, Automated (Routine) Timeframe: 1 Week Facility: [facility] - Location: Laboratory Ordered By: Nela Wallace Referrals / Follow Up: Dago Emery Chi, MD [Primary Care Provider] - Disposition Disposition (needs filled in before D/C Order can be placed): Inpatient Rehab Unit/Facility 10/21/24 1059 Cosigner Signature (if applicable): CC: Dr. Juliane Villa MD; Dr. Sofia Carvajal MD; Dr. Dago Emery MD ~ [facility]08-02-2025 Progress note [facility] Medical Records Department [address] [place] [address] Progress Note - Orthopedic 10/21/24 1022 MR#: [id number] Acct: [id number] Name: BERNICE HASSAN Rep #:[id number] : 1945 79 From: Nela CORNELIUS PCP: Dr. Dago Emery MD Status:ADM I N Location: [place]3 IF240-0 Subjective Subjective Patient is sitting comfortably in [...] % (Auto) 54.7, Lymph % (Auto) 27.2, [place] % (Auto) 15.2 H, Eos % (Auto) [...] feel patient is ready for discharge to half-way facility.Patient states that she feels much more [...] Cosigner Signature (if applicable): CC: ~ Signed [facility]08-01-2025 Progress note Author Sofia Carvajal [facility] Note Date/Time October 20, 2024 4:4 6pm [facility] Medical Records Department [address] [place] [address] Progress Note - Hospitalist 10/20/24 1640 MR#: [id number] Acct: [id number] Name: BERNICE HASSAN Rep #:[id number] : 1945 79 From: Sofia Carvajal MD PCP: Dr. Dago Emery MD Status:ADM I N Location: MS3 OE897-2 Subjective Subjective Initially this morning patient complaining [...] per Ortho Charges/Coding Visit Charges Inpatient E&M: 39176 Subs Hosp L1 10/20/24 1646 <Electronically signed by Sofia Carvajal MD> Cosigner Signature (if applicable): CC: ~ Signed [facility] Work Phone: 1(773) 700-454908-01-2025 Progress note [facility] Medical Records Department [address] [place] [address] Progress Note - Hospitalist 10/20/24 1640 MR#: [id number] Acct: [id number] Name: BERNICE HASSAN Rep #:[id number] : 1945 79 From: Sofia Carvajal MD PCP: Dr. Dago Emery MD Status:ADM I N Location: [place] [address] Subjective Subjective Initially this morning patient complaining [...] per Ortho Charges/Coding Visit Charges Inpatient E&M: 33242 Subs Hosp L1 10/20/24 1646 Cosigner Signature (if applicable): CC: ~ Signed [facility]08-01-2025 Progress note Author Nela Wallace [facility] Note Date/Time October 20, 2024 11: 56am [facility] Medical Records Department [address] [place] [address] Progress Note - Orthopedic 10/20/24 1144 MR#: [id number] Acct: [id number] Name: BERNICE HASSAN Rep #:[id number] : 1945 79 From: Nela CORNELIUS PCP: Dr. Dago Emery MD Status:ADM I N Location: [place]3 SF045-2 Subjective Subjective Patient is sitting comfortably in [...] feel patient is ready for discharge to half-way facility at this time. Due to the [...] Cosigner Signature (if applicable): CC: ~ Signed [facility] Work Phone: 1(879) 724-970508-01-2025 Progress note [facility] Medical Records Department [address] [place] [address] Progress Note - Orthopedic 10/20/24 1144 MR#: [id number] Acct: [id number] Name: BERNICE HASSAN Rep #:[id number] : 1945 79 From: Nela CORNELIUS PCP: Dr. Dago Emery MD Status:ADM I N Location: [place]3 YG954-8 Subjective Subjective Patient is sitting comfortably in [...] feel patient is ready for discharge to half-way facility at this time. Due to the [...] Cosigner Signature (if applicable): CC: ~ Signed [facility]07-31-2025 Progress note Author Landen Potts [facility] Note Date/Time October 19, 2024 1:45 pm [facility] Medical Records Department [address] [place] [address] Progress Note - Orthopedic 10/19/24 1306 MR#: [id number] Acct: [id number] Name: BERNICE HASSAN Rep #:[id number] : 1945 79 From: Landen CORNELIUS PA-C PCP: Dr. Dago Emery MD Status:ADM I N Location: [place] [address] Subjective Subjective The patient was sitting in [...] (Auto) 66.7, Lymph % (Auto) 14.4 L, [place] Bernard % (Auto) 17.1 H, Eos % (Auto) [...] intramedullary nailing of the tibia. Reading Location: [facility] Physical Exam Narrative Vital signs [...] feel patient is ready for discharge to half-way facility. Due to the acute distal tibia [...] Cosigner Signature (if applicable): CC: ~ Signed [facility] Work Phone: 1(602) 359-530607-31-2025 Progress note [facility] Medical Records Department [address] [place] [address] Progress Note - Orthopedic 10/19/24 1306 MR#: [id number] Acct: [id number] Name: BERNICE HASSAN Rep #:[id number] : 1945 79 From: Landen CORNELIUS PA-C PCP: Dr. Dago Emery MD Status:ADM I N Location: [place] [address] Subjective Subjective The patient was sitting in [...] (Auto) 66.7, Lymph % (Auto) 14.4 L, [address] Bernard % (Auto) 17.1 H, Eos % (Auto) [...] intramedullary nailing of the tibia. Reading Location: [facility] Physical Exam Narrative Vital signs [...] feel patient is ready for discharge to half-way facility. Due to the acute distal tibia [...] Cosigner Signature (if applicable): CC: ~ Signed [facility]07-30-2025 Radiology Diagnostic study note [facility] Imaging Services [address] [place] [address] Knee 1 or 2 Views MR#: [id number] Acct: [id number] Name: BERNICE HASSAN Rep #: [id number] : 1945 F 79 From: Antonio Caballero MD PCP: Dr. Dago Emery MD Status: ADM I N Study:Knee 1 or 2 Views Date of Exam: Exam# [id number] Ordering Dr: Grayson Rodriguez MD PROCEDURE: KNEE [...] intramedullary nailing of the tibia. Reading Location: [id number] CC: Dr. Geo Rodriguez MD; Dr. Dago Emery MD ~ Turn Down Worker: Signed [facility]07-30-2025 Progress note Author See Valente [facility] Note Date/Time October 18, 2024 10:2 8am [facility] Medical Records Department [address] [place] [address] Progress Note - Hospitalist 10/18/24 1015 MR#: [id number] Acct: [id number] Name: BERNICE HASSAN Rep #:[id number] : 1945 79 From: See ko MD PCP: Dr. Dago Emery MD Status:ADM I NO Location: [place]3 QK652-1 Subjective Subjective Had a transient episode of [...] 73.5 H, Lymph % (Auto) 11.1 L, [place] Bernard % (Auto) 14.6 H, Eos % (Auto) [...] extension appreciated. Congruent ankle mortise. Reading Location: [facility] Lower Extremity CT 10/17/24 21:42 IMPRESSION: Acute distal tibial meta diaphyseal junction fracture, no extension to the articular surface. No acute distal fibular fracture associated. No dislocation. Reading Location: [place] [address] Physical Exam Narrative General: Alert, Oriented x3, [...] per Ortho Charges/Coding Visit Charges Inpatient E&M: 90637 Subs Hosp L2 10/18/24 1025 <Electronically signed by See Valente MD> Cosigner Signature (if applicable): CC: ~ Signed [facility] Work Phone: 1(714) 312-825807-30-2025 Progress note Author Nela Wallace [facility] Note Date/Time October 18, 2024 8:38 am [facility] Medical Records Department [address] [place] [address] Progress Note - Orthopedic 10/18/24 0826 MR#: [id number] Acct: [id number] Name: BERNICE HASSAN Rep #:[id number] : 1945 79 From: Nela CORNELIUS PCP: Dr. Dago Emery MD Status:ADM I NO Location: [address] Subjective Subjective Patient is anxious and [...] 73.5 H, Lymph % (Auto) 11.1 L, [place] Bernard % (Auto) 14.6 H, Eos % (Auto) [...] extension appreciated. Congruent ankle mortise. Reading Location: [id number] Lower Extremity CT 10/17/24 21:42 IMPRESSION: Acute distal tibial meta diaphyseal junction fracture, no extension to the articular surface. No acute distal fibular fracture associated. No dislocation. Reading Location: [place] [address] Physical Exam Narrative JUDE hose in place [...] Cosigner Signature (if applicable): CC: ~ Signed [facility] Work Phone: 1(221) 946-326307-30-2025 Progress note [facility] Medical Records Department [address] [place] [address] Progress Note - Hospitalist 10/18/24 1015 MR#: [id number] Acct: [id number] Name: BERNICE HASSAN Rep #:[id number] : 1945 79 From: See ko MD PCP: Dr. Dago mEery MD Status:ADM I NO Location: [place] [address] Subjective Subjective Had a transient episode of [...] 73.5 H, Lymph % (Auto) 11.1 L, [place] Bernard % (Auto) 14.6 H, Eos % (Auto) [...] extension appreciated. Congruent ankle mortise. Reading Location: [id number] Lower Extremity CT 07/29/25 21:42 IMPRESSION: Acute distal tibial meta diaphyseal junction fracture, no extension to the articular surface. No acute distal fibular fracture associated. No dislocation. Reading Location: [place] [address] Physical Exam Narrative General: Alert, Oriented x3, [...] per Ortho Charges/Coding Visit Charges Inpatient E&M: 69914 Subs Hosp L2 10/18/24 1028 Cosigner Signature (if applicable): CC: ~ Signed [facility]07-30-2025 Progress note [facility] Medical Records Department [address] [place] [address] Progress Note - Orthopedic 10/18/2426 MR#: [id number] Acct: [id number] Name: BERNICE HASSAN Rep #:[id number] : 1945 79 From: Nela CORNELIUS PCP: Dr. Dago Emery MD Status:ADM I NO Location: MS3 MH772-6 Subjective Subjective Patient is anxious and down [...] 73.5 H, Lymph % (Auto) 11.1 L, [place] % (Auto) 14.6 H, Eos % (Auto) [...] extension appreciated. Congruent ankle mortise. Reading Location: [facility] Lower Extremity CT 10/17/24 21:42 IMPRESSION: Acute distal tibial meta diaphyseal junction fracture, no extension to the articular surface. No acute distal fibular fracture associated. No dislocation. [facility] Physical Exam Narrative JUDE hose [...] Cosigner Signature (if applicable): CC: ~ Signed [facility]07-29-2025 Radiology Diagnostic study note [facility] Imaging Services [address] [place], [place] [address] Extremity Lower without Contra MR#: [id number] Acct: [id number] Name: BERNICE HASSAN Rep #: [id number] : 1945 F 79 From: Saida Osman MD PCP: Dr. Dago Emery MD Status: ADM I NO Study:Extremity Lower without Contra Date of Exam: 10/17/24 Exam# [id number] Ordering Dr: Bharathi Wallace PROCEDURE: EXTREMITY LOWER [...] fibular fracture associated. No dislocation. Reading Location: [place] [address] CC: ADRYAN Holland; Dr. Dago Emery MD ~ Turn Down Worker: Signed [facility]07-29-2025 Radiology Diagnostic study note [facility] Imaging Services [address] [place] [address] Ankle min 3 Views MR#: [id number] Acct: [id number] Name: BERNICE HASSAN Rep #: [id number] : 1945 F 79 From: Yoshi Montes MD PCP: Dr. Dago Emery MD Status: ADM I NO Study:Ankle min 3 Views Date of Exam: Exam# [id number] Ordering Dr: Bharathi Wallace PROCEDURE: LEFT ANKLE [...] extension appreciated. Congruent ankle mortise. Reading Location: [id number] CC: ADRYAN Holland; Dr. Dago Emery MD ~ Turn Down Worker: Signed [facility]07-29-2025 Progress note Author Nela Wallace [facility] Note Date/Time October 17, 2024 4:03 pm [facility] Medical Records Department [address] [place] [address] Progress Note - Orthopedic 10/17/24 1554 MR#: [id number] Acct: [id number] Name: BERNICE HASSAN Rep #:[id number] : 1945 79 From: Nela OCRNELIUS PCP: Dr. Dago Emery MD Status:ADM I NO Location: MO3 LN672-9 Subjective Subjective Patient appears to be comfortable [...] hardware and expected postop changes. Reading Location: [id number] Physical Exam Narrative JUDE hose in place [...] we will plan to discharge patient to [facility] TCU. Patientwas educated she can continue [...] Cosigner Signature (if applicable): CC: ~ Signed [facility] Work Phone: 1(401) 140-671007-29-2025 Progress note [facility] Medical Records Department [address] [place] [address] Progress Note - Orthopedic 10/17/24 1554 MR#: [id number] Acct: [id number] Name: BERNICE HASSAN Rep #:[id number] : 1945 79 From: Nela CORNELIUS PCP: Dr. Dago Emery MD Status:ADM I NO Location: [place] [address]11-1 Subjective Subjective Patient appears to be comfortable [...] hardware and expected postop changes. Reading Location: [id number] Physical Exam Narrative JUDE hose in place [...] we will plan to discharge patient to [facility] TCU. Patientwas educated she can continue to take her Zofran as needed for nausea and vomiting. Patient will need to get physical therapy done in the TCU. Patient does have 2- week follow-up visit scheduled to do a wound check. Patient was encouraged to call with any questions, concerns, new problems. 10/17/24 1603 Cosigner Signature (if applicable): CC: ~ Signed [facility]07-29-2025 Progress note Author See Valente [facility] Note Date/Time October 17, 2024 9:03 am [facility] Medical Records Department [address] [place] [address] Progress Note - Hospitalist 10/17/24 0857 MR#: [id number] Acct: [id number] Name: BERNICE HASSAN Rep #:[id number] : 1945 79 From: See ko MD PCP: Dr. Dago Emery MD Status:ADM I N Location: [place] [address] Subjective Subjective Doing well, no issues overnight. [...] hardware and expected postop changes. Reading Location: [facility] Physical [...] per Ortho Charges/Coding Visit Charges Inpatient E&M: 53309 Subs Hosp L2 10/17/24 0903 <Electronically signed by See Valente MD> Cosigner Signature (if applicable): CC: ~ Signed [facility] Work Phone: 1([phone]) 652-249907-29-2025 Progress note [facility] Medical Records Department [address] [place] [address] Progress Note - Hospitalist 10/17/24 0857 MR#: [id number] Acct: [id number] Name: BERNICE HASSAN Rep #:[id number] : 1945 79 From: See ko MD PCP: Dr. Dago Emery MD Status:ADM I N Location: [place] [address] Subjective Subjective Doing well, no issues overnight. [...] hardware and expected postop changes. Reading Location: [facility] Physical [...] per Ortho Charges/Coding Visit Charges Inpatient E&M: 87217 Subs Hosp L2 10/17/24 0903 Cosigner Signature (if applicable): CC: ~ Signed [facility]07-28-2025 Consult note Author Saulo Bullock [facility] Note Date/Time October 16, 2024 8:29 pm [facility] Medical Records Department [address] [place] [address] Consultation - Hospitalist 10/16/241953 MR#: [id number] Acct: [id number] Name: HASSANBERNICE K Rep #:[id number] : 1945 79 From: Saulo desai DO PCP: Dr. Dago Emery MD Status:ADM I N Location: [place] [address] Assessment & Plan Assessment/Plan (1) Status post total left knee replacement: PLAN: Plan Patient is an 79-year-old female who presented [facility] on 10/16/2024 for planned left total knee [...] is a 79 F who presented to [facility] on 10/16/2024 for planned left knee replacement. [...] Denied any other pain or discomfort currently. [facility] Medical History Cardiology follow-up encounter Wears [...] never substance use type: does not use justice/roman catholic: Caodaism seatbelt use: always do you feel safe [...] hardware and expected postop changes. Reading Location: [id number] Charges/Coding Visit Charges Inpatient E&M: 81498 Subs Hosp L2 10/16/242028 <Electronically signed by Saulo Bullock DO> Cosigner Signature (if applicable): CC: Dr. Geo Rodriguez MD; Dr. Dago Emery MD~ Signed [facility] Work Phone: [phone]) [phone] Consult note Author Ki Cabrera [facility] Note Date/Time October 16, 2024 6:50 pm [facility] Medical Records Department [address] [place] [address] Anesthesia Postop Eval I 10/16/24 1849 MR#: [id number] Acct: [id number] Name: BERNICE HASSAN Rep #:[id number] : 1945 79 From: Ki Cabrera MD PCP: Dr. Dago Emery MD Status:ADM I N Y Race: C Location: [place] [address] - Anesthesia: Postop Eval I Current Vital [...] MD > Date _ Ki Cabrera MD [facility] Signature: Date CC: ~ Signed [facility] Work Phone: 1(281) 296-284807-28-2025 Consult note Author Ki [facility] Note Date/Time October 16, 2024 6:50 pm [facility] Medical Records Department [address] [place] [address] Anesthesia Postop Eval II 10/16/24 185 MR#: [id number] Acct: [id number] Name: BERNICE HASSAN Rep #:[id number] : 1945 79 From: Ki Cabrera MD PCP: Dr. Dago Emery MD Status:ADM I N Y Race: C Location: [place] [address] - Anesthesia Postop Eval I Sum Postop [...] Level: 3 nausea: No Vomiting: No 10/16/24 4090 <Electronically signed by Ki Cabrera MD > Date _ Ki Cabrera MD Cosigner Signature: Date CC: ~ Signed [facility] Work Phone: [phone]) 596-183007-28-2025 Consult note [facility] Medical Records Department [address] [place] [address] Consultation - Hospitalist 10/16/241953 MR#: [id number] Acct: [id number] Name: BERNICE HASSAN Rep #:[id number] : 1945 79 From: Saulo desai DO PCP: Dr. Dago Emery MD Status:ADM I N Location: [place] [address] Assessment & Plan Assessment/Plan (1) Status post total left knee replacement: PLAN: Plan Patient is an 79-year-old female who presented [facility] on 10/16/2024 for planned left total knee [...] is a 79 F who presented to [facility] on 10/16/2024 for planned left knee replacement. [...] Denied any other pain or discomfort currently. [facility] Medical History Cardiology follow-up encounter Wears [...] never substance use type: does not use justice/roman catholic: Caodaism seatbelt use: always do you feel safe [...] hardware and expected postop changes. Reading Location: [id number] Charges/Coding Visit Charges Inpatient E&M: 86580 [facility] Hosp L2 10/16/242028 Cosigner Signature (if applicable): CC: Dr. Geo Rodriguez MD; Dr. Dago Emery MD~ Signed [facility]07-28-2025 Radiology Diagnostic study note [facility] Imaging Services [address] [place] [address] Knee 1 or 2 Views MR#: [id number] Acct: [id number] Name: BERNICE HASSAN Rep #: [id number] : 1945 F 79 From: Yoshi Montes MD PCP: Dr. Dago Emery MD Status: ADM I N Study:Knee 1 or 2 Views Date of Exam: Exam# [id number] Ordering Dr: Grayson Rodriguez MD PROCEDURE: LEFT [...] hardware and expected postop changes. Reading Location: [facility] CC: Dr. Geo Rodriguez MD; Dr. Dago Emery MD ~ Turn Down Worker: Signed [facility]07-28-2025 Consult note [facility] Medical Records Department [address] [place] [address] Anesthesia Postop Eval I 10/16/24 1849 MR#: [id number] Acct: [id number] Name: BERNICE HASSAN Rep #:[id number] : 1945 79 From: Ki Cabrera MD PCP: Dr. Dago Emery MD Status:ADM I N Y Race: C Location: [place] [address] Anesthesia: Postop Eval I Current Vital Signs [...] MD Cosigner Signature: Date CC: ~ Signed [facility]07-28-2025 Consult note [facility] Medical Records Department [address] [place] [address] Anesthesia Postop Eval II 10/16/241849 MR#: [id number] Acct: [id number] Name: BERNICE HASSAN Rep #:[id number] : 1945 79 From: Ki Cabrera MD PCP: Dr. Dago Emery MD Status:ADM I N Y Race: C Location: [place] [address] Anesthesia Postop Eval I Sum Postop Eval [...] MD Cosigner Signature: Date CC: ~ Signed [facility]07-28-2025 Consult note Author Ki wali [facility] Note Date/Time October 16, 2024 10:5 1am [facility] Medical Records Department [address] [place] [address] Pre-Anesthesia Evaluation 10/16/24 1050 MR#: [id number] Acct: [id number] Name: BERNICE HASSAN Rep #:[id number] : 1945 79 From: Ki Cabrera MD PCP: Dr. 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 Hx Hospitalization No 10/04/24 13:47 Any Problems [...] take am of surgery PONV PONV - router machine operator: PONV - router machine operator Female Yes 10/04/24 13:47 HX of Motion [...] 10/11/24 15:05 Respiratory Assessment Respiratory Assessment - router machine operator: Respiratory Tract Infection Hx - router machine operator Hx Respiratory Tract Infection No 10/04/24 13:47 STOP Sleep Apnea STOP Sleep Apnea - router machine operator: STOP Sleep Apnea - router machine operator Hx Hypertension Yes: CONTROLLED WITH MED 10/04/24 [...] Tobacco Use History Tobacco Use History - router machine operator: Tobacco Use History - router machine operator Tobacco Use Smoking Status Never smoker 10/04/24 13:47 Hx Tobacco Use No 10/04/24 13:47 Years Smoking Packs Smoked per Day Smoking Cessation Date was within the last 15 years Hx Smoking Cessation Date Hx Smoking Cessation Counseling Hematologic Medial History Hematologic Hx - router machine operator: Hematologic 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 10/16/24 1051 <Electronically signed by Ki Cabrera MD > Date _ Ki Cabrera MD Cosigner Signature: Date CC: ~ Signed [facility] Work Phone: [phone]) 208-740807-28-2025 History and physical note Author Nela Wallace [facility] Note Date/Time October 16, 2024 10:3 7am [facility] Medical Records Department [address] [place] [address] History & Physical Exam 10/13/24 1655 MR#: [id number] Acct: [id number] Name: BERNICE HASSAN Rep #:[id number] : 1945 79 From: Nela CORNELIUS PCP: Dr. Dago Emery MD Status:REG S DC Location: [place] [address] History and Physical History and Physical Patient [...] LT Hip ORIF - (04/17/2014) JWG @ [facility] LT Leg - (2007) Knee Replacement RT - (09/23/2022) SAW RT TKR ROBOTIC AT [facility] Anesthesia Complications: None Assistive Devices: Glasses, [...] MD; Dr. 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 machine operator Hx Hospitalization No 10/04/24 13:47 Any Problems [...] take am of surgery PONV PONV - router machine operator: PONV - router machine operator Female Yes 10/04/24 13:47 HX of Motion [...] 10/11/24 15:05 Respiratory Assessment Respiratory Assessment - router machine operator: Respiratory Tract Infection Hx - router machine operator Hx Respiratory Tract Infection No 10/04/24 13:47 STOP Sleep Apnea STOP Sleep Apnea - router machine operator: STOP Sleep Apnea - router machine operator Hx Hypertension Yes: CONTROLLED WITH MED 10/04/24 [...] Tobacco Use History Tobacco Use History - router machine operator: Tobacco Use History - router machine operator Tobacco Use Smoking Status Never smoker 10/04/24 13:47 Hx Tobacco Use No 10/04/24 13:47 Years Smoking Packs Smoked per Day Smoking Cessation Date was within the last 15 years Hx Smoking Cessation Date Hx Smoking Cessation Counseling Hematologic Medial History Hematologic Hx - router machine operator: Hematologic 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 10/16/24 1051 > Date _ Ki Germain Signature: Date CC: ~ Signed [facility]07-28-2025 History and physical note [facility] Medical Records Department [address] [place] [address] History & Physical Exam 10/13/24 1655 MR#: [id number] Acct: [id number] Name: BERNICE HASSAN Rep #:[id number] : 1945 79 From: Nela CORNELIUS PCP: Dr. Dago Emery MD Status:REG S AR Location: [place] [address] History and Physical History and Physical Patient [...] LT Hip ORIF - (04/17/2014) JWG @ [facility] LT Leg - (2007) Knee Replacement RT - (09/23/2022) SAW RT TKR ROBOTIC AT [facility] Anesthesia Complications: None Assistive Devices: Glasses, [...] MD; Dr. Dago Emery MD ~* Signed [facility]07-25-2025 [facility]07-23-2025 Progress [facility] [place] [address] OFFICE VISIT Date of Service: 10/11/24 1453 MR#: [id number] Acct: [id number] Name: BERNICE HASSAN Rep #: [id number] : 1945 From: Carolyn Hernandez ch METAL FABRICATOR WELDER METAL FABRICATOR WELDER-C Age/Sex: 79/F [place] [facility] [place]: Signed HPI Subjective Date of Service [...] episodes of overt bleeding, + bruises easily. [facility] Medical History (Updated 10/04/24 @ 13:55 [...] never substance use type: does not use justice/roman catholic: Caodaism seatbelt use: always do you feel safe [...] the past year?: No 10/11/24 1522 h METAL FABRICATOR WELDER METAL FABRICATOR WELDER-C> Date _ Carolyn Ruvalcaba NP METAL FABRICATOR WELDER-C Cosigner Signature: Date (if applicable) CC: ~ [facility]07-23-2025 Progress note Author Carolyn Ruvalcaba [facility] Note Date/Time October 11, 2024 3:22 pm [facility] [place] [facility] [address] [address] OFFICE VISIT Date of Service: 10/11/24 1453 MR#: [id number] Acct: [id number] Name: BERNICE HASSAN Rep #: [id number] : 1945 From: Carolyn Hernandez METAL FABRICATOR WELDER METAL FABRICATOR WELDER-C Age/Sex: 79/F Location: [facility] Status: Signed HPI Subjective Date [...] never substance use type: does not use justice/roman catholic: Caodaism seatbelt use: always do you feel safe [...] NP, NP-C> Date _ Carolyn Ruvalcaba NP METAL FABRICATOR WELDER-C Cosigner Signature: Date (if applicable) CC: ~ [place] [employer] Work Phone: 1(678) 469-929807-02-2025 Evaluation note* Diagnosis Onset Date Resolution Status [...] Anemia acute November 01, 2 025 2:50pm [facility] Work Phone: [phone]) [phone] Evaluation note* Diagnosis Onset Date Resolution Status [...] Anemia acute November 01, 2 025 2:50pm [facility] Work Phone: 1(956) [phone] Radiology Diagnostic study note [facility] Imaging Services [address] [place], [place] [address] Extremity Lower without Contra MR#: [id number] Acct: [id number] Name: BERNICE HASSAN Rep #: [id number] : 1945 F 79 From: Myron Newton MD PCP: Dr. Dago Emery MD Status: REG C LI Study:Extremity Lower without Contra Date of Exam: 08/01/24 Exam# [id number] Ordering Dr: Grayson Rodriguez MD PROCEDURE: EXTREMITY [...] left tibia without apparent complication. Reading Location: [facility] CC: Dr. Geo Rodriguez MD; Dr. Dago Emery MD ~ Turn Down Worker: Signed [facility]05-02-2025 Consult note Author Franklyn Lopez [facility] Note Date/Time November 01, 2024 4: 13pm [facility] Medical Records Department [address] [place] [address] Anesthesia Postop Eval I 11/01/241612 MR#: [id number] Acct: [id number] Name: BERNICE HASSAN Rep #:[id number] : 1945 79 From: Franklyn CHAMBERS PCP: Dr. Dago Emery MD Status:REG S DC Y Race: C Location: [place] [address] Anesthesia: Postop Eval I Current Vital Signs [...] CRNA Cosigner Signature: Date CC: ~ Signed [facility] Work Phone: 1([phone]) [phone] Evaluation note* Diagnosis Onset Date Resolution Status Admit Date Essential thrombocythemia chronic July 10, 2024 12:43pm Myeloproliferative disorder chronic July 10, 2024 12:43pm Essential thrombocythemia chronic July 10, 2024 12:45pm Myeloproliferative disorder chronic July 10, 2024 12:45pm Educational circumstance resolved July 10, 2024 12:45pm Erythrocytosis resolved June 12:45pm Leukocytosis resolved July 10, 2024 12:45pm Thrombocytosis deleted June 12:45pm [facility] Work Phone: [phone]) [phone] Evaluation note* Diagnosis Onset Date Resolution Status [...] 2:15pm Thrombocytosis deleted October 11, 2024 2:15pm [facility] Work Phone: [phone]) [phone] Evaluation note* Diagnosis Onset Date Resolution Status [...] knee replacement acute October 18, 2024 1:14pm [facility] Work Phone: 1(873) [phone] Evaluation note* Diagnosis Onset Date Resolution Status [...] Anemia acute November 01, 2 025 2:50pm [facility] Work Phone: Consult note Author Avery Rod [facility] Note Date/Time November 01, 2024 4: 03pm [facility] Medical Records Department [address] [place] [address] Pre-Anesthesia Evaluation 11/01/24 1539 MR#: [id number] Acct: [id number] Name: BERNICE HASSAN Rep #:[id number] : 1945 79 From: Avery Crocker PCP: Dr. 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: Anesthesia History - router machine operator Hx Hospitalization Yes 11/01/24 15:07 Any Problems [...] take am of surgery PONV PONV - router machine operator: PONV - router machine operator Female Yes 11/01/24 15:07 HX of Motion [...] 11/01/24 15:07 Respiratory Assessment Respiratory Assessment - router machine operator: Respiratory Tract Infection Hx - router machine operator Hx Respiratory Tract Infection No 11/01/24 15:07 STOP Sleep Apnea STOP Sleep Apnea - router machine operator: STOP Sleep Apnea - router machine operator Hx Hypertension Yes 11/01/24 15:07 Hx Sleep [...] Tobacco Use History Tobacco Use History - router machine operator: Tobacco Use History - router machine operator Tobacco Use Smoking Status Never smoker 11/01/24 15:07 Hx Tobacco Use No 11/01/24 15:07 Years Smoking Packs Smoked per Day Smoking Cessation Date was within the last 15 years Hx Smoking Cessation Date Hx Smoking Cessation Counseling Hematologic Medial History Hematologic Hx - router machine operator: Hematologic 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 11/01/24 1602 <Electronically signed by Avery Rod MD> Date _ Avery Rod MD Cosigner Signature: Date CC: ~ Signed [facility] Work Phone: Consult note Author Dinorah Headley [facility] Note Date/Time November 01, 2024 4: 50pm [facility] Medical Records Department [address] [place] [address] Anesthesia Postop Eval II 11/01/24 1633 MR#: [id number] Acct: [id number] Name: BRENICE HASSAN #:[id number] : 1945 79 From: Dinorah Headley CRNA PCP: Dr. Dago Emery MD Status:REG S DC Y Race: C Location: [address] Anesthesia Postop Eval I Sum Postop Eval Completion status Anesthesia document: Postop Eval 1 completed: Yes Anesthesia Postop Eval I Summary Anesthesia Postop Eval I Summary: Anesthesia Postop Eval I: Assessment Summary Airway patent Yes 11/01/24 16:13 FLUX PLANT OPERATOR.JBLOU Spontaneous unlabored Yes 11/01/24 16:13 FLUX PLANT OPERATOR.JBLOU respirations Mental status Awake,Calm 11/01/24 16:13 FLUX PLANT OPERATOR.JBLOU nausea No 11/01/24 16:13 FLUX PLANT OPERATOR.[email or web address] Vomiting No 11/01/24 16:13 FLUX PLANT OPERATOR.[email or web address] Anesthesia Postop Eval I: Fluid Summary Crystalloid volume administer 200 11/01/24 16:13 FLUX PLANT OPERATOR.JBLOU (ml) Colloids volume administered ( ml) Blood Product volume administered (ml) Total IV fluid infused 200 11/01/24 16:13 FLUX PLANT OPERATOR.JBLOU Anesthesia Postop Eval I: Summary Notes Anesthesia Complication No 11/01/24 16:13 FLUX PLANT OPERATOR.JBLOU Anesthesia Complication Comment: Post-operative progress note Anesthesia: Postop Eval II Evaluation Mental status: Awake Pain Level: 0 nausea: No Vomiting: No 11/01/24 1633 <Electronically signed by Dinorah jarquin CRNA> Date _ Dinorah Headley CRNA Cosigner Signature: Date CC: ~ Signed [facility] Work Phone: Discharge summary Author Dr. Yanez [facility] April 12, 2022 10:08am Note Date/Time April 12, 2022 8 :45am [facility] Medical Records Department [facility] [address] Emergency Department Summary 04/12/22 MR#: [id number] Acct: [id number] Name: BERNICE HASSAN Rep #:[id number] : 1945 76 From: Garret Yanez DO [...] states he has a history of osteoarthritis. [facility] Medical History Anxiety Fracture of left hip [...] never substance use type: does not use justice/roman catholic: Caodaism seatbelt use: always do you feel safe [...] 9:33 EST Reading Location ID and State: [address] [place] [address] , Service support , Discharge Plan Triage [...] your Primary Care Provider. Call [facility] ([phone]) or report to the closest Emergency Room. Call 911 if necessary. 04/12/22 1008 <Electronically signed by Garret Yanez DO> Cosigner Signature (if applicable): CC: Dr. Dago Emery MD ~ Signed [facility] Work Phone: Evaluation note* Diagnosis Onset Date Resolution Status Essential thrombocythemia ch ronic Myeloproliferative disorder chronic Essential thrombocythemia ch ronic Myeloproliferative disorder chronic Educational circumstance res olved Erythrocytosis resolved Leukocytosis resolved [facility] Work Phone: Evaluation note* Diagnosis Onset Date Resolution Status Essential thrombocythemia ch ronic Myeloproliferative disorder chronic Educational circumstance res olved Erythrocytosis resolved Leukocytosis resolved Essential thrombocythemia ch ronic Myeloproliferative disorder chronic [facility] Work Phone: Evaluation note* Diagnosis Onset Date Resolution Status BMI 33.0-33.9,adult acute Debility acute Status post total right knee replacement acute Essential thrombocythemia ch ronic Hyperlipidemia chronic Hypertension chronic Hypothyroidism chronic Essential thrombocythemia ch ronic Myeloproliferative disorder chronic Essential thrombocythemia ch ronic Myeloproliferative disorder chronic Educational circumstance res olved Erythrocytosis resolved Leukocytosis resolved [facility] Work Phone: History and physical note Author Pio Friend [facility] Note Date/Time November 01, 2024 3: 26pm [facility] Medical Records Department [address] [place] [id number] History & Physical Exam 11/01/24 1523 MR#: [id number] Acct: [id number] Name: BERNICE HASSAN Rep #:[id number] : 1945 79 From: Pio Webb DO PCP: Dr. Dago Emery MD Status:REG S DC Location: [place] [address] HPI - General General Date of Admission: [...] part of recently but thelast 5 years. [facility] Medical History Cardiology follow-up encounter Wears [...] never substance use type: does not use justice/roman catholic: Caodaism seatbelt use: always do you feel safe [...] Dago Emery MD; Pio Webb DO~ Signed [facility] Work Phone: Hospital Discharge instructionsAmbulatory Orders* 12 Lead EKG [[facility]] Location: None Selected [facility] Work Phone: Hospital Discharge instructionsAdditional Instructions Discharge 11/28/2024 to [facility], intermediate, private pay, part B therapies.[facility] Work Phone: Reason for referral (narrative)No reason for referral information availableWMercy Health [facility] Work Phone: Chief Complaint and Reason [...] ADMISSION H&P EXAM November 28, 2024 2:04pm [facility] WORK November 29 5:00am ADMISSION H&P [...] No December 02, 2018 12:53pm Power of Welding Equipment Repairer Supervisor No November 12:53pm Advance Directive Response Recorded Date/ Time Advance Directives Yes April 19, 2014 4:40pm Living Will No April 12 8:37am Power of Welding Equipment Repairer Supervisor No April 12, 2022 8:37am Advance Directive Response Recorded Date/ Time Advance Directives Yes April 19, 2014 5:40pm Living Will No April 12 9:37am Power of Welding Equipment Repairer Supervisor No April 12, 2022 9:37am Advance Directive Response Recorded Date/ Time Advance Directives Yes April 19, 2014 5:40pm Living Will Yes September 03, 2022 11:45am Power of Welding Equipment Repairer Supervisor Yes September 03 11:45am Advance Directive Response Recorded Date/ Time Name of Medical Power of Welding Equipment Repairer Supervisor Dianne Conley , state attorney September 28, 2022 1:21pm Advance Directives Yes April 19, 2014 4:40pm Living Will Yes September 28, 2022 1:21pm Power of Welding Equipment Repairer Supervisor Yes September 28 1:21pm Advance Directive Response Recorded Date/ Time Living Will No June 27, 2018 2:53pm Do you have a Healthcare Power of Welding Equipment Repairer Supervisor? No June 27, 2018 2:53pm Advance Directives Yes April 19, 2014 5:40pm Advance Directive Response Recorded Date/ Time Living Will No June 27, 2018 2:53pm Do you have a Healthcare Power of Welding Equipment Repairer Supervisor? No June 27, 2018 2:53pm Do you have a Healthcare Power of Welding Equipment Repairer Supervisor? Yes October 16, 2024 8:13pm Advance Directives Yes April 19, 2014 5:40pm Advance Directive Response Recorded Date/ Time Living Will No June 27, 2018 2:53pm Do you have a Healthcare Pow er of Welding Equipment Repairer Supervisor? No June 27, 2018 2:53pm Do you have a Healthcare Pow er of Welding Equipment Repairer Supervisor? Yes October 23, 2024 3:05pm Name of Medical Power of Welding Equipment Repairer Supervisor Lizzeth Matias, jon October 23, 2024 3:05pm Do you have a Healthcare Pow er of Welding Equipment Repairer Supervisor? No November 01, 2024 3:07pm Do you have a Healthcare Pow er of Welding Equipment Repairer Supervisor? Yes October 16, 2024 8:13pm Advance Directives Yes April 19, 2014 5:40pm Advance Directive Response Recorded Date/ Time Advance Directives Yes January 05, 2025 9:23am Living Will No June 27, 2018 2:53pm Do you have a Healthcare Pow er of Welding Equipment Repairer Supervisor? No June 27, 2018 2:53pm Do you have a Healthcare Pow er of Welding Equipment Repairer Supervisor? Yes October 23, 2024 3:05pm Name of Medical Power of Welding Equipment Repairer Supervisor Lizzeth Matias, jon October 23, 2024 3:05pm Do you have a Healthcare Pow er of Welding Equipment Repairer Supervisor? No November 01, 2024 3:07pm Do you have a Healthcare Pow er of Welding Equipment Repairer Supervisor? Yes October 16, 2024 8:13pm Summary Purpose [...] Care Provider, Referring Provider Active Carolyn Ruvalcaba METAL FABRICATOR WELDER, METAL FABRICATOR WELDER-C Attending Provider Active Team Status: Inactive Member [...] 2024 End: July 10, 2024 Carolyn Ruvalcaba METAL FABRICATOR WELDER, METAL FABRICATOR WELDER-C Attending Provider Active Start: July 10, 2024 [...] 2024 End: July 10, 2024 Carolyn Ruvalcaba METAL FABRICATOR WELDER, METAL FABRICATOR WELDER-C Attending Provider Active Start: July 10, 2024 [...] Status: Inactive Member Role/Relationship Status Dates Dr. aDgo Emery MD Primary Care Provider Active Start: [...] 2024 End: October 11, 2024 Carolyn Ruvalcaba METAL FABRICATOR WELDER, METAL FABRICATOR WELDER-C Attending Provider Active Start: October 11, 2024 [...] Active Start: October 31, 2024 Dr. Dago Emeyr MD Admit Provider Active Star t: October [...] 2024 End: October 11, 2024 Carolyn Ruvalcaba METAL FABRICATOR WELDER, METAL FABRICATOR WELDER-C Attending Provider Active Start: October 11, 2024 [...] Provider Active Start: October 16, 2024 Dr. eSe Valente MD Other Provider [...] Active Start: October 20, 2024 Dr. Geo Rordiguez MD Admit Provider Active Sta rt: October [...] 2024 End: October 11, 2024 Carolyn Ruvalcaba METAL FABRICATOR WELDER, METAL FABRICATOR WELDER-C Attending physician Active Start: October 11, 2024 [...] End: November 30, 2024 [employer] NP, METAL FABRICATOR WELDER-C Attending physician Active Start: November 30, 2024 End: November 30, 2024 Team Status: Inactive Member Role/Relationship Status Dates Dr. 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 [employer] provides no warranty or guarantee of the accuracy or completeness of information in this document.
[2025-03-14 06:38] LABS: Anion Gap 7 (7-18); BUN 17 mg/dL (4-19); BUN/Creat Ratio 14.6 RATIO (10-20); Calcium,Total 8.8 mg/dL (7.6-11.0); Carbon Dioxide 25.1 mmol/L (20.0-29.0); Chloride 107 mmol/L (96-106); Glucose 76 mg/dL (70-99); Potassium 4.4 mmol/L (3.5-5.1)
[2025-03-14 07:00] LABS: Hematocrit 26.8 % (37-47); Hemoglobin 8.6 g/dL (12.0-15.0); Immature Granulocytes Count 0.010 X10^3/uL (0.0-0.0); Mean Corp Hgb Conc 32.1 g/dL (32-36); Mean Corpuscular Volume 118.6 fL (81-99); Mean Platelet Vol. 10.5 fl (6.2-12.0); NRBC Flagged by Analyzer 0 % (0-5); POSITIVE MORPHOLOGY YES; Platelet Count 163 K/mm3 (150-450); RBC Distribution Width CV 16.3 % (11.6-14.6); RBC Distribution Width SD 71.4 fl (35.1-43.9); Red Blood Count 2.26 M/mm3 (4.2-5.4); White Blood Count 4.0 K/mm3 (4.4-11.0)
[2025-03-14 07:01] LABS: Anisocytosis 1+; Differential Indicated SCAN CRITERIA MET
== END ==
LOC: OLS.WHLTCC 05:00
PROVIDERS: PCP Family Medicine Geriatric Medicine; Visit Provider Internal Medicine
DX: S82.302D Unspecified fracture of lower end of left tibia, subsequent encounter for closed fracture with routine healing (principal); Z96.652 Presence of left artificial knee joint; M62.561 Muscle wasting and atrophy, not elsewhere classified, right lower leg; D69.6 Thrombocytopenia, unspecified
CPT/HCPCS: 36415; 80048; 85025

== ENCOUNTER → 2025-03-21 05:35 | Outpatient (REF) | payer MEDICARE, OTHER, SELFPAY ==
[2025-03-21 09:24] LABS: Hematocrit 28.3 % (37-47); Hemoglobin 9.2 g/dL (12.0-15.0); Immature Granulocytes Count 0.010 X10^3/uL (0.0-0.0); Mean Corp Hgb Conc 32.5 g/dL (32-36); Mean Corpuscular Volume 118.4 fL (81-99); Mean Platelet Vol. 10.5 fl (6.2-12.0); NRBC Flagged by Analyzer 0 % (0-5); POSITIVE MORPHOLOGY YES; Platelet Count 196 K/mm3 (150-450); RBC Distribution Width CV 16.2 % (11.6-14.6); RBC Distribution Width SD 71.3 fl (35.1-43.9); Red Blood Count 2.39 M/mm3 (4.2-5.4); White Blood Count 3.4 K/mm3 (4.4-11.0)
[2025-03-21 09:25] LABS: Differential Indicated SCAN CRITERIA MET
[2025-03-21 09:38] LABS: Anion Gap 8 (7-18); BUN 16 mg/dL (4-19); BUN/Creat Ratio 17.3 RATIO (10-20); Calcium,Total 8.8 mg/dL (7.6-11.0); Carbon Dioxide 24.7 mmol/L (20.0-29.0); Chloride 104 mmol/L (96-106); Glucose 76 mg/dL (70-99); Potassium 3.9 mmol/L (3.5-5.1)
[2025-03-21 09:52] LABS: Anisocytosis 1+
== END ==
LOC: OLS.WHLTCC 05:35
PROVIDERS: PCP Family Medicine Geriatric Medicine; Visit Provider Internal Medicine
DX: S82.302D Unspecified fracture of lower end of left tibia, subsequent encounter for closed fracture with routine healing (principal); Z96.652 Presence of left artificial knee joint; M62.561 Muscle wasting and atrophy, not elsewhere classified, right lower leg; D69.6 Thrombocytopenia, unspecified
CPT/HCPCS: 36415; 80048; 85025